=== PATIENT | male | born 1945 | race Caucasian/White ===

== ENCOUNTER 2023-04-05 14:21 | Outpatient (OUT) | payer MEDICARE, OTHER, SELFPAY ==
[2023-04-05 14:57] LABS: Basophils Percent Auto 0.3 % (0.2-2.0); Eosinophils Absolute Auto 0.1 10^3/uL (0.0-0.7); Hematocrit 34.8 % (42.0-54.0); Hemoglobin 11.6 g/dL (14.0-18.0); Immature Granulocytes Abs Auto 0.05 10^3/uL (0.00-0.03); Immature Granulocytes Pct Auto 0.8 % (0.0-0.5); Lymphocytes Absolute Auto 1.6 10^3/uL (1.2-3.8); Lymphocytes Percent Auto 24.2 % (20.5-60.0); Mean Corpuscular HGB Conc 33.3 g/dL (29.9-35.2); Mean Corpuscular Volume 95.9 fL (80.0-94.0); Mean Platelet Volume 9.8 fL (9.5-13.5); Monocytes Absolute Auto 0.5 10^3/uL (0.3-0.8); Monocytes Percent Auto 7.5 % (1.7-12.0); Neutrophils Absolute Auto 4.3 10^3/uL (1.4-6.5); Neutrophils Percent Auto 65.2 % (43.0-75.0); Platelet Count 234 10^3/uL (150-450); Red Blood Count 3.63 10^6/uL (4.70-6.10); Red Cell Distribution Width 12.4 % (11.0-15.0); White Blood Count 6.5 10^3/uL (4.0-11.0)
[2023-04-05 15:18] LABS: Alanine Aminotransferase 35 U/L (16-63); Albumin Level 3.4 g/dL (3.4-5.0); Alkaline Phosphatase 68 U/L (46-116); Amylase 37 U/L (25-115); Anion Gap 8.8; Aspartate Amino Transferase 24 U/L (15-37); BUN Creatinine Ratio 18.8; Bilirubin Total 0.7 mg/dL (0.2-1.0); Calcium 9.6 mg/dL (8.5-10.1); Carbon Dioxide 31.9 mmol/L (21.0-32.0); Chloride 101 mmol/L (98-107); Estimated GFR (African America >60 (>=60); Estimated GFR (Non-African Ame >60 (>=60); Globulin 3.4 g/dL; Glucose 116 mg/dL (74-106); Potassium 4.7 mmol/L (3.5-5.1); Sodium 137 mmol/L (136-145); Total Protein 6.8 g/dL (6.4-8.2)
== END 2023-04-05 14:22 | disposition home or self-care (01) ==
LOC: LAB 14:25
PROVIDERS: PCP Internal Medicine; Visit Provider Internal Medicine
DX: R10.11 Right upper quadrant pain (principal); R11.0 Nausea; E11.65 Type 2 diabetes mellitus with hyperglycemia
CPT/HCPCS: 36415; 80053; 82150; 83690; 85025

== ENCOUNTER 2023-04-12 07:55 | Outpatient (OUT) | payer MEDICARE, OTHER, SELFPAY ==
--- NOTE | 2023-04-12 07:58 | US_ITS ---
The [address] [address] Patient Name: PABLO ONEIL MRN: [id number] date: 1945 Sex: M Assigned Patient Location: US Current Patient Location: LAB Accession/Order Number: [id number] Exam Date: 04/12/2023 08:00 Report Date: 04/12/2023 08:35 At the request of: LISSA FALL Procedure: US right upper quadrant EXAM: US right upper quadrant HISTORY: . Right Upper Quadrant Abdominal Pain R10.11 . COMPARISON: None. TECHNIQUE: Grayscale and color imaging was performed FINDINGS: The head and body of the pancreas appears normal. Within the tail region there are 2 smoothly marginated avascular hypoechoic lesions measuring 1.7 x 1.3 and 1.6 x 1.1 cm. The liver is normal in size. No masses are noted. Color-flow is noted in the portal and hepatic veins. Scanning of the gallbladder demonstrates small gallstones within the gallbladder. No gallbladder wall thickening is noted. Patient had no pain upon scanning over the gallbladder. Common bile duct was normal measuring 3 mm. Right kidney measures 9.8 x 6.2 x 6.5 cm. Color-flow is noted. No solid renal cortical masses or hydronephrosis is noted. No fluid is noted in the right upper quadrant. US/US right upper quadrant IMPRESSION: 1. Small gallstones. No gallbladder wall thickening. Patient had no pain upon scanning over the gallbladder. 2. The head and body of pancreas appears normal. Within the tail there are 2 smoothly marginated hypoechoic lesions. These could represent cysts or a hypoechoic solid areas. MRI of the pancreas is suggested for further evaluation. 3. The remainder of the right upper quadrant was unremarkable. Electronically authenticated by: FEDE SHIN Date: 04/12/2023 08:35
== END 2023-04-12 07:56 | disposition home or self-care (01) ==
LOC: US 07:55
PROVIDERS: PCP Internal Medicine; Visit Provider Internal Medicine
DX: R10.11 Right upper quadrant pain (principal)
CPT/HCPCS: 76705

== ENCOUNTER 2023-04-12 08:24 | Outpatient (OUT) | payer MEDICARE, OTHER, SELFPAY ==
[2023-04-12 10:08] LABS: Prostate Specific Antigen Dx 0.14 ng/mL (<=4.00)
== END 2023-04-12 08:25 | disposition home or self-care (01) ==
LOC: LAB 08:26
PROVIDERS: PCP Internal Medicine; Visit Provider Urology
DX: R97.21 Rising PSA following treatment for malignant neoplasm of prostate (principal); C61 Malignant neoplasm of prostate; R31.29 Other microscopic hematuria
CPT/HCPCS: 36415; 84153

== ENCOUNTER 2023-04-20 14:16 | Outpatient (OUT) | payer MEDICARE, OTHER, SELFPAY ==
--- NOTE | 2023-04-20 14:19 | MR_ITS ---
[place] [id number] Patient Name: PABLO ONEIL MRN: [id number] date: 1945 Sex: M Assigned Patient Location: [facility] Current Patient Location: Accession/Order Number: [id number] Exam Date: 04/20/2023 15:00 Report Date: 04/24/2023 07:27 At the request of: LISSA FALL Procedure: MR abdomen wo con EXAMINATION: MR abdomen wo con, 04/20/2023 3:00 PM EDT HISTORY: Pancreatic Mass K86.89 COMPARISON: 11/05/2021 TECHNIQUE: Multisequence multiplanar MRI of the abdomen was performed without the use of IV contrast. MRCP sequences were additionally obtained. FINDINGS: LOWER THORAX: Unremarkable. LIVER: Normal in size and configuration. Mild steatosis. No suspicious masses within limitations of noncontrast technique. BILE DUCTS: No intrahepatic or extrahepatic bile duct dilation. GALLBLADDER: Question changes of mild focal adenomyomatosis along the gallbladder fundus. Gallbladder otherwise appears unremarkable. PANCREAS: Parenchymal atrophy. There are several scattered cystic pancreatic lesions, the largest of which just dorsal to the body measures approximately 4.0 cm in greatest diameter (image 1 series 9001), grossly unchanged since CT 11/05/2021 noting differences in modality. No abnormal dilatation of the main pancreatic duct. SPLEEN: Normal ADRENAL GLANDS: Normal. KIDNEYS/URETERS: No hydroureteronephrosis. No suspicious renal mass. VISUALIZED BOWEL: Diminutive hiatal hernia. Nondilated. Colonic diverticulosis, without visualized findings of acute diverticulitis PERITONEUM/RETROPERITONEUM: No ascites or fluid collection. LYMPH NODES: No abdominal lymphadenopathy. VESSELS: No abdominal aortic aneurysm. ABDOMINAL WALL: Partially visualized changes from median sternotomy. BONES: No suspicious osseous lesions are seen. MR/MR abdomen wo con IMPRESSION: 1. 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 No abnormal pancreatic ductal dilatation. Consider EUS if not already performed, and follow-up MRI in 6 months. 2. Mild hepatic steatosis. Electronically authenticated by: PEDRO BEYER Date: 04/24/2023 07:27
--- NOTE | 2023-04-20 14:20 | XR_ITS ---
The [address] [address] Patient Name: PABLO ONEIL MRN: [id number] date: 1945 Sex: M Assigned Patient Location: RAD Current Patient Location: RAD Accession/Order Number: [id number] Exam Date: 04/20/2023 14:25 Report Date: 04/20/2023 15:09 At the request of: LISSA FALL Procedure: XR foreign body eye EXAM: XR foreign body eye HISTORY: Foreign Body Eye COMPARISON: None. TECHNIQUE: 2 views FINDINGS: IMPRESSION: No visualized radiodense foreign body. No fracture, dislocation, subluxation. 24 x 22.5 x 8.5 mm soft tissue mass within the right frontal sinus. The remainder of the paranasal sinuses appear pneumatized. Electronically authenticated by: FEDE ZAMORA Date: 04/20/2023 15:09
== END 2023-04-20 14:17 | disposition home or self-care (01) ==
LOC: RAD 14:16
PROVIDERS: PCP Internal Medicine; Visit Provider Internal Medicine
DX: K86.89 Other specified diseases of pancreas (principal); K76.0 Fatty (change of) liver, not elsewhere classified
CPT/HCPCS: 70030; 74181

== ENCOUNTER 2023-04-21 10:33 | Outpatient (OUT) | payer MEDICARE, OTHER, SELFPAY ==
--- NOTE | 2023-04-21 10:41 | XR_ITS ---
The [address] [address] Patient Name: PABLO ONEIL MRN: [id number] date: 1945 Sex: M Assigned Patient Location: RAD Current Patient Location: RAD Accession/Order Number: [id number] Exam Date: 04/21/2023 10:47 Report Date: 04/21/2023 11:09 At the request of: ANTHONY SCRUGGS Procedure: XR abdomen 1V EXAM: XR abdomen 1V HISTORY: Microscopic Hematuria R31.29 COMPARISON: None. TECHNIQUE: AP view of the abdomen. FINDINGS: Nonobstructive bowel gas pattern is noted. There is no suspicious calcification. The osseous structures are intact. XR/XR abdomen 1V IMPRESSION: Nonobstructive bowel gas pattern. No suspicious renal calcification. Electronically authenticated by: AIXA RUIZ Date: 04/21/2023 11:09
== END 2023-04-21 10:34 | disposition home or self-care (01) ==
LOC: RAD 10:33
PROVIDERS: PCP Internal Medicine; Visit Provider Urology
DX: R31.29 Other microscopic hematuria (principal)
CPT/HCPCS: 74018

== ENCOUNTER 2023-06-02 09:23 | Outpatient (OUT) | payer MEDICARE, OTHER, SELFPAY ==
--- NOTE | 2023-06-02 09:26 | CT_ITS ---
The [address] [address] Patient Name: PABLO ONEIL MRN: [id number] date: 1945 Sex: M Assigned Patient Location: CT Current Patient Location: CT Accession/Order Number: [id number] Exam Date: 06/02/2023 09:32 Report Date: 06/02/2023 16:51 At the request of: LISSA FALL Procedure: CT sinus wo con EXAM: CT sinus wo con HISTORY: Mass Of Sinus J34.89 COMPARISON: XR sinus 04/20/2023. TECHNIQUE: Contiguous axial CT images of the sinuses obtained without contrast. Coronal and sagittal reconstructions performed. Dose reduction techniques were achieved by using automated exposure control and/or adjustment of mA and/or kV according to patient size and/or use of iterative reconstruction technique. FINDINGS: There is a 2.2 x 2 cm lobulated rounded hyperdense mass within the frontal sinus at the midline There is a 1 cm mucous retention cyst in left maxillary sinus. Otherwise, the paranasal sinuses are clear and well-aerated. The osteomeatal complexes, bilateral frontal and sphenoethmoidal recesses are patent. There is severe leftward bony nasal septal deviation with a 5 mm bony spur. There are no acute fracture or destructive lesion of bony structures. The mastoid air cells are well aerated. There is no proptosis. The extraocular muscles are intact. There are cerumen within the bilateral external auditory canals. CT/CT sinus wo con IMPRESSION: A 2.2 x 2 cm lobulated rounded hyperdense mass within the frontal sinus at the midline, consistent with frontal sinus osteoma. No evidence of acute sinusitis. Small mucous retention cyst in left maxillary sinus. Otherwise, the paranasal sinuses are clear and well-aerated. Severe leftward bony nasal septal deviation with a 5 mm bony spur. Electronically authenticated by: DIA CANA[place] Date: 06/02/2023 16:51
== END 2023-06-02 09:24 | disposition home or self-care (01) ==
LOC: CT 09:23
PROVIDERS: PCP Internal Medicine; Visit Provider Internal Medicine
DX: J34.89 Other specified disorders of nose and nasal sinuses (principal)
CPT/HCPCS: 70486

== ENCOUNTER 2023-06-27 10:13 | Outpatient (OUT) | payer MEDICARE, OTHER, SELFPAY ==
--- NOTE | 2023-06-27 11:02 | CA_ITS ---
Patient Name: PABLO ONEIL MR#: [id number] : 1945 Exam Date: 06/27/2023 Ordering Doctor: DR ARIAN MULLIGAN M.D. ECHOCARDIOGRAM REPORT PROCEDURE: CA ECHO DOPPLER COMPLETE INDICATIONS: Nonrheumatic aortic valve stenosis COMPARISON: None. DESCRIPTION: COMPLETE ECHOCARDIOGRAM Real-time transthoracic echocardiography with 2D, M-mode, spectral and color flow Doppler performed. QUALITY: Technical quality was good. LEFT VENTRICLE: Normal chamber size. Mild concentric left ventricular hypertrophy. LV EF: Ventricular systolic function is normal; visually estimated ejection fraction is 55 to 60%. No obvious wall motion abnormalities. DIASTOLIC: Grade II, moderate diastolic dysfunction. ATRIAL SEPTUM: Inadequately seen. LEFT ATRIUM: Mild dilatation. RIGHT ATRIUM: Moderate dilatation. RIGHT VENTRICLE: Moderate dilatation. Normal right ventricular systolic function. TRICUSPID VALVE: Normal mobility and thickness. Moderate to severe regurgitation. Mild pulmonary hypertension. RVSP 40mmHg MITRAL VALVE: Mildly thickened with normal mobility. No evidence of mitral valve stenosis. Mild mitral annular calcification. Mild mitral regurgitation. AORTIC VALVE: Normal trileaflet appearance. Moderately calcified aortic valve. Doppler velocity suggests mild to moderate aortic valve stenosis. DVI 0.3, ROGER 1.3cm2, Vmax 2.8m/s, mean gradient 18mmHg. Mild aortic regurgitation. AORTIC ROOT: Normal diameter and appearance. PULMONIC VALVE: Normal thickness and mobility. No stenosis. Trivial regurgitation. PERICARDIUM: No evidence of pericardial effusion. IVC: Collapses with inspirations. Normal size CONCLUSION: 1. Global left ventricular systolic function is normal; visually estimated ejection fraction is 55 to 60% 2. Mildly increased left ventricular wall thickness 3. Grade 2, moderate diastolic dysfunction 4. The right ventricle is moderately dilated with normal systolic function 5. Biatrial enlargement 6. Moderate to severe tricuspid regurgitation 7. Mildly elevated right ventricular systolic pressure; RVSP 40 mmHg 8. Mild mitral regurgitation 9. Mild to moderate aortic valve stenosis; mild aortic valve regurgitation Adult Echocardiography Procedure Report Left Ventricle LVEDD (3.7 - 5.6 cm): 4.72 cm LVESD (2.2 - 4.0 cm): 3.31 cm LVIVS thickness (0.6 - 1.2 cm): 1.16 cm LVPW thickness (0.5 - 1.0 cm): 1.32 cm e': 0.09 m/s E - e': 9.33 LVOT Max Gradient: 2.90 mm[Hg] LVOT Area (cm2): 0.85 m/s Peak Velocity (LVOT): 0.85 m/s Mean Velocity (LVOT): 0.56 m/s LVOT Diameter 2.36 cm Left Atrium LA Volume Index (2D A2C): 39.67 ml/m2 Left Atrium Systolic Dimension: 4.44 cm Mitral Valve MV E to A Ratio: 0.85 Mitral Valve A-Wave Peak Velocity: 1.01 m/s Mitral Valve E-Wave Peak Velocity: 0.86 m/s Right Ventricle RV Internal Diastolic Dimension: 4.66 cm Aorta AO Root Diam: 3.35 cm Ascending Ao Diam: 3.25 cm Aortic Valve AoV Area (Peak Kael): 1.35 cm2, 1.34 cm2, 1.30 cm2, 1.30 cm2 AoV Area (VTI): 1.44 cm2, 1.37 cm2 Deceleration [place]: 1.10 m/s2, 1.55 m/s2 Pressure Half-Time: 741.69 ms, 667.20 ms Peak Velocity(Antegrade Flow): 2.78 m/s, 2.82 m/s, 2.68 m/s, 2.87 m/s Peak Gradient(Antegrade Flow): 30.94 mm[Hg], 32.93 mm[Hg], 31.87 mm[Hg], 28.67 mm[Hg] Mean Velocity(Antegrade Flow): 2.00 m/s, 1.90 m/s, 1.99 m/s Mean Gradient(Antegrade Flow): 17.98 mm[Hg], 16.62 mm[Hg], 17.12 mm[Hg] Velocity Time Integral: 78.29 cm, 74.87 cm, 71.12 cm Tricuspid Valve Peak Velocity (Regurgitant Flow): 2.75 m/s, 2.95 m/s, 3.06 m/s Pulmonic Valve Mean Gradient: 1.79 mm[Hg] Mean Velocity: 0.59 m/s Peak Velocity: 1.00 m/s, 1.01 m/s Peak Gradient: 4.08 mm[Hg], 3.97 mm[Hg] Right Atrium Right Atrium Systolic Pressure: 88.72 ml, 88.72 ml Dictated by: Arian Mulligan M.D. on 06/27/2023 at 17:00 Approved by: Arian Mulligan M.D. on 06/27/2023 at 17:05
== END 2023-06-27 10:14 | disposition home or self-care (01) ==
LOC: CARD 10:13
PROVIDERS: PCP Internal Medicine; Visit Provider Internal Medicine Interventional Cardiology
DX: I35.0 Nonrheumatic aortic (valve) stenosis (principal)
CPT/HCPCS: 93306

== ENCOUNTER 2023-09-14 09:23 | Outpatient (OUT) | payer MEDICARE, OTHER, SELFPAY ==
--- NOTE | 2023-09-14 09:25 | US_ITS ---
The [place] [id number] Patient Name: PABLO ONEIL MRN: [id number] date: 1945 Sex: M Assigned Patient Location: US Current Patient Location: Accession/Order Number: [id number] Exam Date: 09/14/2023 09:35 Report Date: 09/14/2023 10:12 At the request of: LISSA FALL Procedure: US extremity nonvascular LT EXAMINATION: US extremity nonvascular LT HISTORY: Mass Of Skin Of Left Shoulder R22.32 COMPARISON: No relevant comparison available. FINDINGS: Ultrasound in the area the patient's palpable abnormality, left posterior shoulder demonstrates normal skin and subcutaneous fat and muscle. No focal ultrasound abnormality US/US extremity nonvascular LT IMPRESSION: No ultrasound abnormality corresponding to the patient's palpable mass Electronically authenticated by: FEDE AYOUB Date: 09/14/2023 10:12
--- OUTSIDE RECORDS SUMMARY | 2023-09-14 09:44 | XMS_ITS | CCD ---
Author Name Unknown Address [address] [place] [address] Organization [facility] Care Team Providers Care Rectangular Tank Cooper Name Role Phone Jamar Fall DO Primary Care Provider Dheeraj JAMES, Marco A R Unavailable [facility] SURTASS ANALYST.ALEXA, Christo Unavailable Lauren WELSH, Clementine Unavailable [phone] JAMAR FALL Primary Care Physician [phone] Jamar Fall DO Primary Care Provider Dheeraj JAMES, Marco A R Unavailable [phone] [facility] SURTASS ANALYST.RAILWAY TRACK PLANT OPERATOR, Christo Unavailable Lauren WELSH, Clementine Unavailable Jamar Fall DO Primary Care Provider Dheeraj JAMES, Marco A R Unavailable [facility] SURTASS ANALYST.ALEXA, Christo Unavailable Lauren WELSH, Clementine Unavailable [phone] Jamar Fall Unavailable JUAN DAVID, DR ALCARAZ Admitting Unavailable JUAN DAVID, DR ALCARAZ Attending Unavailable JUAN DAVID, DR ALCARAZ Primary Care Unavailable JUAN DAVID, DR ALCARAZ Consulting Unavailable Cynthia Torres Consulting Unavailable KAEL ., DR CRUZ Admitting Unavailable KAEL ., DR CRUZ Attending Unavailable JUAN DAVID, DR ALCARAZ Primary Care Unavailable KAEL ., DR CRUZ Consulting Unavailable DHEERAJ, DR SHARIF Admitting Unavailable DHEERAJ, DR SHARIF Attending Unavailable JUAN DAVID, DR ALCARAZ Primary Care Unavailable DHEERAJ, DR SHARIF Consulting Unavailable FEDE DE JESUS Consulting Unavailable UMANALUIZ Krueger Consulting Unavailable TAMEKA, LORA Admitting Unavailable TAMEKA, LORA Attending Unavailable JUAN DAVID, DR ALCARAZ Primary Care Unavailable TAMEKALORA Barnett Consulting Unavailable SCRUGGS ., DR CRUZ Admitting Unavailable SCRUGGS ., DR CRUZ Attending Unavailable BALL, DR ALCARAZ Primary Care Unavailable SCRUGGS ., DR CRUZ Consulting Unavailable REQUEST, NONE LISTED Admitting Unavaila ble REQUEST, NONE LISTED Attending Unavaila ble BALL, DR ALCARAZ Primary Care Unavailable REQUEST, NONE LISTED Consulting Unavaila ble REQUEST, NONE LISTED Admitting Unavaila ble REQUEST, NONE LISTED Attending Unavaila ble BALL, DR ALCARAZ Primary Care Unavailable REQUEST, NONE LISTED Consulting Unavaila ble REQUEST, NONE LISTED Admitting Unavaila ble REQUEST, NONE LISTED Attending Unavaila ble BALL, DR ALCARAZ Primary Care Unavailable REQUEST, NONE LISTED Consulting Unavaila ble SCRUGGS, Anthony R Attending Unavailable SCRUGGS, Anthony Lee Attending Unavailable SCRUGGS, Anthony R Attending Unavailable SCRUGGS, Anthony R Attending Unavailable Lauren RN, Clementine Unavailable BRIDGER MULLIGAN Attending Unavailable JAMAR FALL E Primary Care Unavailable MARCO A ESQUEDA Referring Unavailable CHRISTO HOWARD Attending Unavailable JUAN DAVID, JAMAR E Primary Care Unavailable MARCO A ESQUEDA Referring Unavailable JUAN DAVID, JAMAR E Primary Care Unavailable MARCO A ESQUEDA Referring Unavailable JUAN DAVID, JAMAR Jessica Primary Care Unavailable MARCO A ESQUEDA R Referring Unavailable CHRISTO HOWARD Attending Unavailable JUAN DAVID JAMAR Jessica Primary Care Unavailable MARCO A ESQUEDA R Referring Unavailable MARCO A ESQUEDA R Attending Unavailable JUAN DAVID, JAMAR E Primary Care Unavailable MARCO A ESQUEDA R Referring Unavailable BALL, JAMAR E Primary Care Unavailable MARCO A ESQUEDA R Referring Unavailable JUAN DAVID, JAMAR E Primary Care Unavailable MARCO A ESQUEDA R Referring Unavailable JUAN DAVID, JAMAR E Primary Care Unavailable MARCO A ESQUEDA R Referring Unavailable JUAN DAVID, JAMAR E Primary Care Unavailable JUAN DAVID, JAMAR E Primary Care Unavailable MARCO A ESQUEDA R Referring Unavailable MARCO A ESQUEDA R Attending Unavailable BALL, JAMAR E Primary Care Unavailable MARCO A ESQUEDA R Referring Unavailable BALL, JAMAR E Primary Care Unavailable MARCO A ESQUEDA R Referring Unavailable JUAN DAVID, JAMAR E Primary Care Unavailable MARCO A ESQUEDA R Attending Unavailable MARCO A ESQUEDA R Referring Unavailable JUAN DAVID, JAMAR E Primary Care Unavailable MARCO A ESQUEDA Referring Unavailable Ball Jamar JAMES Primary Care Provider LONG BOO Attending Unavailable MARCO A ESQUEDA Referring Unavailable EMELINA LOUIS Attending Unavailable JAMAR FALL Referring Unavailable Allergies Allergy Classification Reported Allergen(s) Allergy Type Date of Onset Reaction(s) Facility (18 sources) Penicillins; Translations: [PENICILLINS] Drug Allergy 1 Unknown [facility] (20 sources) Penicillin G; Translations: [penicillin G benzathine] Drug Allergy 1 Unknown (qualifier value) [facility] (12 sources) Penicillins Drug Allergy 5 Unknown [facility] (13 sources) Simvastatin; Translations: [SIMVASTATIN] Drug Allergy 2 Unknown [facility] (1 source) Penicillins Drug allergy (disorder) 5 [facility] (1 source) Penicillin Drug Allergy Unknown [facility]-Tr[facility] Other (1 source) Allergies Reconciled Propensity to adverse reactions Unknown N-Trig Other (1 source) patient allergy list reviewed by nurse or physicia Propensity to adverse reactions 9 Comment:Done N-Trig Other (3 sources) Simvastatin Propensity to adverse reactions 2 [facility] Medications Current Medications Medication Drug Class(es) Dates Sig (Normalized) Sig (Original) Aspir-81 81 MG (20 sources) take 1 tablet by mouth once daily Aspir-81 81 MG 1 tablet Orally Once a day Active aspirin 81 mg oral tablet (20 sources) Platelet Aggregation Inhibitor, Nonsteroidal Anti-inflammatory Drug Start: 02-04-2019 take 1 mg by mouth once daily aspirin 81 mg oral tablet mg tab(s), Oral, Daily, Refills(s) 0 Start Date: 02/04/19 Status: Ordered take 1 tablet by mouth in the mo rning aspirin 81 MG EC tablet Take 81 mg by mouth in the morning. 0 Active Comment on above: Take 81 mg by mouth once daily. atorvastatin 40 mg oral tablet (20 sources) HMG-CoA Reductase Inhibitor Start: 04-17-2023 atorvastatin 40 mg Tab Refills(s) 0 Start Date: 04/17/23 Status: Ordered Start: 02-04-2019 take 1 tablet by anupama th once daily atorvastatin 20 mg Tab 20 mg = 1 tab(s), Oral, Daily, Refills(s) 0 Start Date: 02/04/19 Status: Ordered Comment on above: Take 20 mg by mouth once daily. Take 40 mg by mouth once daily. Contour Next - (20 sources) Contour Next - u se one test strip to check home blood sugar transcutaneous daily for 30 days Active Contour Next - u se one test strip to check home blood sugar daily Active enzalutamide 80 mg oral tablet (20 sources) Androgen Receptor Inhibitor Start: 05-13-2022 take 1 mg by mouth once daily Xtandi 80 mg oral tablet mg tab(s), Oral, Daily, Refills(s) 0 Start Date: 05/13/22 Status: Ordered Start: 10-28-2021 End: 04-27-2023 take 2 tablets by mouth once daily enzalutamide (XTANDI) 80 mg tablet Take 2 tablets (160 mg) by mouth once daily. 60 tablet 3 10/28/2021 04/27/2023 Discontinued Comment on above: Take 2 tablets (160 mg) by mouth once daily. fluorouracil 50 mg/ml topical cream (2 sources) Nucleoside Metabolic Inhibitor Start: 08-28-2023 fluorouracil (Efudex) 5 % cream Indications: Actinic keratosis Apply to directed areas on the face, ears and back of hands twice a day x 14 days. Dispense 30 day supply but only use for 14 days. 40 g 0 08/28/2023 Active Start: 08-28-2023 fluorouracil ( Efudex) 5 % cream Indications: Actinic keratosis Apply to directed areas on the face, ears and back of hands twice a day x 14 days. Dispense 30 day supply but only use for 14 days. 40 g 0 08/28/2023 Active hydroCHLOROthiazide 12.5 mg / lisinopril 20 mg oral tablet (20 sources) Thiazide Diuretic, Angiotensin Converting Enzyme Inhibitor Start: 02-04-2019 take 1 tablet by mouth once daily hydrochlorothiazide-lisinopril 12.5 mg-20 mg Tab 1 tab(s), Oral, Daily, Refill(s) 0 Start Date: 02/04/19 Status: Ordered take 1 tablet by anupama th in the morning lisinopril-hydroCHLOROthiazide 20-12.5 M G tablet Take 1 tablet by mouth in the morning. 0 Active take 1 tablet by anupama th once daily Lisinopril-hydroCHLOROthiazide 20-12.5 M G TAKE 1 TABLET BY MOUTH EVERY DAY Active Comment on above: Take 1 tablet by anupama th once daily. ipratropium bromide 0.042 mg/actuat metered dose nasal spray (3 sources) Anticholinergic Start: 06-05-20 End: 06-04-20 24 take 2 spray(s) nasal route in the morning, then take 2 spray(s) nasal route in the evening, then take 2 spray(s) nasal route at bedtime ipratropium (Atrovent) 0.06 % nasal spray Indications: Vasomotor rhinitis Administer 2 sprays into each nostril in the morning and 2 sprays in the evening and 2 sprays before bedtime. 45 mL 3 06/05/2023 06/04/2024 Active traMADol hydrochloride 50 mg oral tablet (2 sources) Opioid Agonist Start: 07-21-19 traMADol HCl 50 MG 1 Orally every 8 hours as needed for 7 days Jul, Active Vitamin D3 (3 sources) Start: 06-22-20 Vitamin D3 Start Date: 06/22/20 Status: Ordered Completed/Discontinued Medications Medication Drug Class(es) Dates Sig (Normalized) Sig (Original) acetaminophen 325 mg / HYDROcodone bitartrate 5 mg oral tablet (2 sources) Opioid Agonist HYDROcodone-acet a minophen (NORCO) 5-325 mg per tablet hydrocodone 5 mg-acetaminophen 325 mg tablet 0 Active Comment on above: hydrocodone 5 mg-vibha taminophen 325 mg tablet amiodarone hydrochloride 200 mg oral tablet (2 sources) Antiarrhythmic amiodarone (PACERONE) 200 mg tablet amiodarone 200 mg tablet 0 Active Comment on above: amiodarone 200 mg ta blet calcium carbonate/vitamin D2 (CALCIUM + VITAMIN D ORAL) (12 sources) End: 05-12-2022 take 1 tablet by mouth twice daily calcium carbonate/vitamin D2 (CALCIUM + VITAMIN D ORAL) Take 1 tablet by mouth twice daily. 0 05/12/2022 Discontinued (Discontinued by Patient) take 1 tablet by mouth twice benjamín ly calcium carbonate/vitamin D2 (CALCIUM + VITAMIN D ORAL) Take 1 tablet by mouth twice daily. 0 Active Comment on above: Take 1 tablet by anupama th twice daily. calcium citrate 950 mg / cholecalciferol 250 unt oral tablet (9 sources) Vitamin D Start: 04-28-20 take 2 tablets by mouth once daily Calcium Citrate-Vitamin D3 200 mg-6.25 mcg (250 unit) tab Take 2 tablets by mouth once daily. 0 04/28/2022 Active Comment on above: Take 2 tablets by [facility] once daily. clopidogrel 75 mg oral tablet (2 sources) P2Y12 Platelet Inhibitor clopidogrel (PLAVIX) 75 mg tablet clopidogrel 75 mg tablet 0 Active Comment on above: clopidogrel 75 mg ta blet docusate sodium 100 mg oral capsule (2 sources) docusate sodium (COLACE) 100 mg capsule q 24 HR. 0 Active Comment on above: q 24 HR. enteric contrast (will be provided with radiology test) (3 sources) Start: 10-29-19 End: 10-30-19 enteric contrast (will be provided with radiology test) For CT CHESTABD/PEL W IVCON Routine order Administer, As Directed One Time Only, via Oral, Rectal, both Oral and Rectal, Enteric Tube, Stoma or Indwelling Catheter, Enteric Contrast as designated per enteric contrast guidelines 1 Each 0 10/28/2021 10/29/2021 Start: 10-28-2021 End: 10-29-2021 enteric contrast (will be pr ovided with radiology test) For CT CHESTABD/PEL W IVCON Routine order Administer, As Directed One Time Only, via Oral, Rectal, both Oral and Rectal, Enteric Tube, Stoma or Indwelling Catheter, Enteric Contrast as designated per enteric contrast guidelines 1 Each 0 10/28/2021 10/29/2021 Active Comment on above: For CT CHESTABD/PEL W IVCON Routine order Administer, As Directed One Time Only, via Oral, Rectal, both Oral and Rectal, Enteric Tube, Stoma or Indwelling Catheter, Enteric Contrast as designated per enteric contrast guidelines ferrous sulfate 325 mg oral tablet (2 sources) take 1 tablet by mouth three times daily at mealtime ferrous sulfate 325 mg (65 mg iron) tablet ferrous sulfate 325 mg (65 mg iron) tablet Take 1 tablet 3 times a day by oral route with meals for 30 days. 0 Active Comment on above: ferrous sulfate 325 mg (65 mg iron) tablet Take 1 tablet 3 times a day by oral route with meals for 30 days. finasteride 5 mg oral tablet (2 sources) 5-alpha Reductase Inhibitor finasteride (PROSCAR) 5 mg tablet q 24 HR. 0 Active Comment on above: q 24 HR. furosemide 40 mg oral tablet (2 sources) Loop Diuretic furosemide (LASI X) 40 mg tablet q 24 HR. 0 Active Comment on above: q 24 HR. glimepiride (20 sources) Sulfonylurea Start: 10-16-19 take 0.5 tablet by mouth once daily at breakfast glimepiride (AMARYL) 1 mg tablet TAKE 1/2 TABLET BY MOUTH DAILY 30 MINUTES PRIOR TO BREAKFAST 0 10/15/2021 Active Start: 10-15-2021 take 0.5 mg by mouth once kristi y GLIMEPIRIDE ORAL Take 0.5 mg by mouth once daily. 0 10/15/2021 Active Start: 05-14-2021 glimepiride Or al, Daily, Refills(s) 0 Start Date: 05/14/21 Status: Ordered Comment on above: TAKE 1/2 TABLET BY M OUTH DAILY 30 MINUTES PRIOR TO BREAKFAST Take 0.5 mg by mouth once daily. ibuprofen 800 mg oral tablet (2 sources) Nonsteroidal Anti-inflammatory Drug ibuprofen (MOTRIN ) 800 mg tablet ibuprofen 800 mg tablet 0 Active Comment on above: ibuprofen 800 mg tab let iv contrast (will be provided with radiology test) (3 sources) Start: 10-28-2021 End: 10-29-2021 iv contrast (will be provided with radiology test) CT Chest ABD/PEL-Inject, intravenously, once for 1 dose.No IV access, insert saline lock prior to the beginning of sedation, infusion, injection of imaging exam. Discontinue saline lock post exam. If Pt. has a central line or IVAD, may access for administration according to line specific nursing protocol. Once exam is complete flush line and de-access according to line specific nursing protocol in the CT contrast administration guidelines link. 1 Each 0 10/28/2021 10/29/2021 Start: 10-28-2021 End: 10-29-2021 iv contrast (will be provide d with radiology test) CT Chest ABD/PEL-Inject, intravenously, once for 1 dose.No IV access, insert saline lock prior to the beginning of sedation, infusion, injection of imaging exam. Discontinue saline lock post exam. If Pt. has a central line or IVAD, may access for administration according to line specific nursing protocol. Once exam is complete flush line and de-access according to line specific nursing protocol in the CT contrast administration guidelines link. 1 Each 0 10/28/2021 10/29/2021 Active Comment on above: CT Chest ABD/PEL-Inj ect, intravenously, once for 1 dose.No IV access, insert saline lock prior to the beginning of sedation, infusion, injection of imaging exam. Discontinue saline lock post exam. If Pt. has a central line or IVAD, may access for administration according to line specific nursing protocol. Once exam is complete flush line and de-access according to line specific nursing protocol in the CT contrast administration guidelines link. Lidocaine (14 sources) Antiarrhythmic, Amide Local Anesthetic Start: 03-15-20 23 Lidocaine Feb, 20 mg metFORMIN hydrochloride 1000 mg oral tablet (20 sources) Biguanide Start: 08-17-19 22 take 2 tablets by mouth once daily at mealtime metFORMIN (GLUCOPHAGE) 500 mg tablet TAKE 2 TABLETS BY MOUTH ONCE A DAY WITH FOOD 0 08/17/2021 Active Start: 08-17-2021 take 1 tablet by anupama th once daily metFORMIN (GLUCOPHAGE) 1,000 mg tablet Take 1,000 mg by mouth once daily. 0 08/17/2021 Active Start: 05-14-2021 take 1 mg by mouth twice daily metformin 1000 mg oral tablet mg tab(s), Oral, BID, Refills(s) 0 Start Date: 05/14/21 Status: Ordered take 1 tablet by anupama th at mealtime, then take 1 tablet by mouth every twenty-four hours metFORMIN, OSM, (Fortamet) 500 MG 24 hr tablet Take 500 mg by mouth in the evening. Take with meals. Do not crush, chew, or split. 0 Active metFORMIN HCl 50 0 MG 1 tablet with a meal Active Comment on above: TAKE 2 TABLETS BY MO UT ONCE A DAY WITH FOOD Take 1,000 mg by anupama th once daily. 24 hr metoprolol succinate 25 mg extended release oral tablet (20 sources) beta-Adrenergic Jose Start: 02-04-2019 take 1 tablet by mouth every twenty-four hours metoprolol succinate ER (TOPROL XL) 25 mg 24 hr tablet Take by mouth. 0 02/04/2019 Active Start: 02-04-2019 take 1 tablet by anupama th twice daily metoprolol 25 mg ER Tab 25 mg = 1 tab(s), Oral, BID, Refills(s) 0 Start Date: 02/04/19 Status: Ordered take 1 tablet by anupama th every twelve hours metoprolol tartrate (Lopressor) 25 MG tablet Take 25 mg by mouth every 12 (twelve) hours. 0 Active End: 05-12-2022 take 1 tablet by mouth twice daily Metoprolol Tartrate 25 MG TAKE 1 TABLET BY MOUTH TWICE A DAY Active Comment on above: Take 25 mg by mouth. Take 25 mg by mouth twice daily. Take by mouth. Multivitamins-Minerals -Lutein (MULTIVITAMIN 50 PLUS) tab (20 sources) Multivitamins-Mi ne rals-Lutein (MULTIVITAMIN 50 PLUS) tab Take 1 tablet by mouth once daily. 0 Active Comment on above: Take 1 tablet by anupama th once daily. oxyCODONE hydrochloride 5 mg oral tablet (2 sources) Opioid Agonist oxyCODONE IR (ROXICODONE) 5 mg immediate release tablet q 4 HR. 0 Active Comment on above: q 4 HR. predniSONE 5 mg oral tablet (2 sources) Start: 08-23-19 take 1 tablet by mouth once daily predniSONE (DELTASONE) 5 mg tablet Take 5 mg by mouth once daily. 0 08/23/2021 Active Comment on above: Take 5 mg by mouth o nce daily. tamsulosin hydrochloride 0.4 mg oral capsule (2 sources) alpha-Adrenergic Jose tamsulosin (FLOMAX) 0.4 mg q 24 HR. 0 Active Comment on above: q 24 HR. triamcinolone acetonide 40 mg/ml injectable suspension (20 sources) Corticosteroid Start: 09-17-19 Kenalog-40 30 Feb, 2023 40 mg Problems Active Problems Problem Classification Problem Date Documented Da te Episodic/Chronic Abdominal pain (2 sources) Right upper quadrant pain; Translations: [Lower abdominal pain, unspecified] Episodic Calculus of urinary tract (2 sources) History of calculus of kidney; Translations: [Personal history of urinary calculi] Onset: 04-17-2023 Episodic Cancer of prostate (20 sources) Malignant tumor of prostate; Translations: [Malignant neoplasm of prostate] Onset: 07-02-2014 08-06-2014 Chronic Comment on above: S/p Radical prostate ctomy 10/2014 and EBRT 2018 Cancer of prostate (5 sources) History of malignant neoplasm of prostate; Translations: [Personal history of malignant neoplasm of prostate] Onset: 04-14-2023 12-23-2019 Episodic Conduction disorders (18 sources) Left bundle branch block; Translations: [Other left bundle branch block] Onset: 08-25-2014 Chronic Coronary atherosclerosis and other heart disease (20 sources) Coronary arteriosclerosis; Translations: [Atherosclerotic heart disease of [place] coronary artery without angina pectoris] Onset: 10-10-2014 01-01-2019 Chronic Diabetes mellitus with complications (20 sources) Type 2 diabetes mellitus; Translations: [Type 2 diabetes mellitus with hyperglycemia] Onset: 07-17-1959 Chronic Diabetes mellitus without complication (10 sources) Type 2 diabetes mellitus without complication; Translations: [Type 2 diabetes mellitus without complications] Onset: 06-01-2023 Chronic Disorders of lipid metabolism (20 sources) Hyperlipidemia; Translations: [Hypercholesterolemi a] Onset: 07-17-1959 01-01-2019 Chronic Essential hypertension (20 sources) Hypertensive disorder; Translations: [Essential hypertension] Onset: 06-01-2023 Resolved: 06-01-2023 01-01-2019 Chronic Genitourinary symptoms and ill-defined conditions (8 sources) Microscopic hematuria; Translations: [Nocturia] Onset: 04-14-2023 01-01-2019 Episodic Heart valve disorders (20 sources) Aortic stenosis, non-rheumatic ; Translations: [Nonrheumatic aortic (valve) stenosis] Onset: 07-17-2014 Chronic Hyperplasia of prostate (2 sources) Lower urinary tract symptoms due to benign prostatic hypertrophy; Translations: [Hyperplasia of prostate, unspecified, with urinary obstruction and other lower urinary tract symptoms [LUTS]] Onset: 03-07-2013 Chronic Immunizations and screening for infectious disease (1 source) Vaccination given; Translations: [Encounter for immunization] Episodic Nausea and vomiting (2 sources) Nausea Episodic Neoplasms of unspecified nature or uncertain behavior (2 sources) Neoplastic disease; Translations: [Neoplasm of unspecified behavior of bone, soft tissue, and skin] 08-28-2023 Episodic Occlusion or stenosis of precerebral arteries (1 source) 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; Translations: [Occlusion and stenosis of carotid artery without mention of cerebral infarction] Onset: 07-27-2018 Chronic Osteoarthritis (20 sources) Osteoarthritis of joint of right shoulder region; Translations: [Primary osteoarthritis, right shoulder] Chronic Other circulatory disease (2 sources) Cardiovascular symptoms; Translations: [Other specified symptoms and signs involving the circulatory and respiratory systems] Onset: 07-25-2018 Episodic Other congenital anomalies (1 source) Other congenital malformations of iris; 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 Other ear and sense organ disorders (3 sources) Hearing loss; Translations: [Unspecified hearing loss, unspecified ear] Onset: 06-01-2023 06-01-2023 Chronic Other ear and sense organ disorders (3 sources) Sensorineural hearing loss, bilateral; Translations: [Sensorineural hearing loss, bilateral] Onset: 06-01-2023 06-01-2023 Chronic Other ear and sense organ disorders (1 source) Impacted cerumen, right ear Episodic Other eye disorders (4 sources) Anisocoria; 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] Onset: 06-01-2023 06-01-2023 Chronic Other injuries and conditions due to external causes (1 source) History of fall; Translations: [History of falling] Episodic Other male genital disorders (1 source) Impotence of organic origin; Translations: [Impotence of organic origin] Chronic Other nervous system disorders (20 sources) Chronic pain; Translations: [Other chronic pain] Chronic Other nervous system disorders (2 sources) Other chronic pain Chronic Other nervous system disorders (14 sources) Carpal tunnel syndrome; Translations: [Carpal tunnel syndrome, right upper limb] Chronic Other nervous system disorders (1 source) Carpal tunnel syndrome, right upper limb Chronic Other non-traumatic joint disorders (2 sources) Pain in right shoulder Episodic Other nutritional; endocrine; and metabolic disorders (20 sources) Body mass index 30+ - obesity; Translations: [Obesity, unspecified] Onset: 07-17-1959 Chronic Other nutritional; endocrine; and metabolic disorders (2 sources) Obesity, unspecified Chronic Other nutritional; endocrine; and metabolic disorders (1 source) Simple obesity ; Translations: [Other obesity due to excess calories] Onset: 07-17-1959 Chronic Other nutritional; endocrine; and metabolic disorders (5 sources) Obesity; Translations: [Obesity, unspecified] Onset: 06-01-2023 06-01-2023 Chronic Other nutritional; endocrine; and metabolic disorders (1 source) Obese class II; Translations: [Body mass index 35.0-35.9, adult] Onset: 07-17-1959 Chronic Other nutritional; endocrine; and metabolic disorders (1 source) Obese class I; Translations: [Body mass index 34.0-34.9, adult] Onset: 07-17-1959 Chronic Other nutritional; endocrine; and metabolic disorders (14 sources) Obesity caused by energy imbalance; Translations: [Other obesity due to excess calories] Chronic Other nutritional; endocrine; and metabolic disorders (1 source) Other obesity due to excess calories Chronic Other nutritional; endocrine; and metabolic disorders (1 source) Body mass index (BMI) 32.0-32.9, adult Chronic Other screening for suspected conditions (not mental disorders or infectious disease) (11 sources) Raised prostate specific antigen; Translations: [Rising PSA following treatment for malignant neoplasm of prostate] Onset: 11-08-2021 Episodic Other skin disorders (2 sources) Actinic keratosis; Translations: [Actinic keratosis] 08-28-2023 Episodic Other upper respiratory disease (1 source) Seasonal allergic rhinitis; Translations: [Other seasonal allergic rhinitis] Onset: 11-01-2017 Chronic Other upper respiratory disease (4 sources) Vasomotor rhinitis; Translations: [Vasomotor rhinitis] Onset: 06-05-2023 06-05-2023 Chronic Other upper respiratory disease (1 source) Vasomotor rhinitis Chronic Other upper respiratory disease (1 source) Other specified disorders of nose and nasal sinuses Episodic Pancreatic disorders (not diabetes) (4 sources) Other specified diseases of pancreas; Translations: [Cyst of pancreas] Episodic Residual codes; unclassified (20 sources) Obstructive sleep apnea syndrome; Translations: [Obstructive sleep apnea (adult) (pediatric)] Onset: 04-03-2017 Chronic Residual codes; unclassified (4 sources) Obstructive sleep apnea (adult) (pediatric) Chronic Residual codes; unclassified (3 sources) Sleep apnea; Translations: [Sleep apnea, unspecified] Onset: 06-01-2023 06-01-2023 Chronic Secondary malignancies (8 sources) Secondary malignant neoplasm of bone; Translations: [Secondary malignant neoplasm of bone] Chronic Secondary malignancies (2 sources) Secondary malignant neoplasm of bone Chronic Spondylosis; intervertebral disc disorders; other back problems (20 sources) Cervical spondylosis; Translations: [Other spondylosis with radiculopathy, cervical region] Onset: 07-24-2022 Chronic Sprains and strains (7 sources) Strain of hamstring muscle; Translations: [Right hamstring muscle strain] Episodic Unclassified (1 source) OPENED IN ERROR Past or Other Problems Problem Classification Problem Date Documented Date Episodic/Chronic Acute posthemorrhagic anemia (1 source) Acute posthemorrhagic anemia; Translations: [Acute posthemorrhagic anemia] Onset: 01-09-2015 Episodic Allergic reactions (1 source) Idiopathic urticaria; Translations: [Idiopathic urticaria] Onset: 11-01-2017 Episodic Coma; stupor; and brain damage (1 source) Somnolence; Translations: [Somnolence] Onset: 11-24-2016 Episodic Deficiency and other anemia (1 source) Anemia; Translations: [Anemia, unspecified] Onset: 01-21-2019 Episodic Diabetes mellitus without complication (1 source) Impaired fasting glycemia; Translations: [Impaired fasting glucose] Onset: 07-17-1959 Episodic Intracranial injury (1 source) Concussion with no loss of consciousness; Translations: [Concussion without loss of consciousness, subsequent encounter] Onset: 11-08-2017 Episodic Malaise and fatigue (1 source) Malaise and fatigue; Translations: [Other malaise and fatigue] Onset: 12-31-2015 Episodic Nonspecific chest pain (1 source) Chest pain; Translations: [Chest pain, unspecified] Onset: 08-25-2014 Episodic Other non-traumatic joint disorders (5 sources) Pain in left shoulder; Translations: [PAIN IN LEFT SHOULDER] Onset: 07-21-2022 Episodic Other nutritional; endocrine; and metabolic disorders (1 source) Morbid obesity; Translations: [Morbid (severe) obesity due to excess calories] Resolved: 01-21-2021 Chronic Residual codes; unclassified (1 source) Requires influenza virus vaccination; Translations: [Need for prophylactic vaccination and inoculation, Influenza] Onset: 04-03-2017 Episodic Results Test Name Value Interpretation Reference Range Facility No Panel Informationon 08-28 [facility] Type of biopsy: schmidt ential Informed consent: discussed and consent obtained Informed consent comment: The risks and benefits of the biopsy were discussed. Risks include but are not limited to bleeding, infection, scarring, pain, and nerve damage. An opportunity to ask questions prior to the procedure was permitted and all questions were answered. Patient was prepped and draped in usual sterile fashion: area cleansed with alcohol. Anesthesia: the lesion was anesthetized in a standard fashion Anesthetic: 1% lidocaine w/ epinephrine 1-100,000 buffered w/ 8.4% NaHCO3 Instrument used: DermaBlade Hemostasis achieved with: electrodesiccation Outcome: patient tolerated procedure well Outcome comment: The specimen was placed in a prelabeled formalin container to be sent for pathology Post-procedure details: sterile dressing applied and wound care instructions given Post-procedure details comment: Emphasized need to contact clinic for any signs of infection, uncontrollable bleeding, or complications. Dressing type: bandage Additional details: Photo taken yes Amount of lidocaine used: 0.5 cc [facility] CNOVSPon 08-03-2023 CNOVSP Visit (SP) Office ([facility]) PABLO FELIX ([id number]) 1945 M Date Time Provider Department 08/03/23 9:15 AM MARCO A ESQUEDA During your visit today, we recorded the following information about you: Temperature Pulse Respiration Blood pressure 97 degrees 54/minute 16/minute 160/70 Weight Height 94.5 kg 1.676 m Marco A Esqueda MD 08/04/2023 6:33 AM Signed PATIENT NAME: Pablo Felix DATE: 08/03/2023 PRIMARY CARE PHYSICIAN: Dr. Jamar Fall OTHER PHYSICIANS: Dr. Anthony Scruggs, Dr. Khan, [facility] Cardiology Portions of this encounter note have been copied from the note from 04/27/2023 and has been updated where appropriate, and reflect my current medical decision making from today. CC: This is a 78 year old male with metastatic prostate cancer, seen for scheduled follow-up. INTERIM HISTORY: Since the patient's last visit here he has noticed an increase in skin lesion over his right ear. It has slowly increased in size over the past several months. He also has noticed stomach problems . Apparently he develops nausea and upset stomach after eating certain foods, on and off for the past 6 months. Certain foods he tolerates well. He has had no associated nausea or vomiting. He has occasional diarrhea from the Xtandi for which he takes Imodium. Otherwise no change in bowel habits. He remains off Lupron and overall feels somewhat better. He remains on Xtandi which he is tolerating. MEDICATIONS: Current Outpatient Medications Medication Sig enzalutamide (XTANDI) 80 mg tablet Take 2 tablets (160 mg) by mouth once daily. Calcium Citrate-Vitamin D3 200 mg-6.25 mcg (250 unit) tab Take 2 tablets by mouth once daily. metoprolol succinate ER (TOPROL XL) 25 mg 24 hr tablet Take by mouth. Ewmgofloecldn-Kregztgj-Tgsr in (MULTIVITAMIN 50 PLUS) tab Take 1 tablet by mouth once daily. GLIMEPIRIDE ORAL Take 0.5 mg by mouth once daily. metFORMIN (GLUCOPHAGE) 1,000 mg tablet Take 1,000 mg by mouth once daily. atorvastatin (LIPITOR) 40 mg tablet Take 40 mg by mouth once daily. lisinopril-hydrochlorothiaz rosalee (PRINZIDE,ZESTORETIC) 20-12.5 mg per tablet Take 1 tablet by mouth once daily. aspirin, enteric coated (ASPIRIN, ENTERIC COATED) 81 mg EC tablet Take 81 mg by mouth once daily. No current facility-administered medications for this visit. ALLERGIES: ALLERGIES Allergen Reactions Penicillins Unknown Simvastatin Unknown PAST MEDICAL HISTORY: PAST MEDICAL HISTORY Diagnosis Date CAD (coronary artery disease) Hypercholesterolemia on medication Hypertension on medication Nocturia Prostate CA (HCC) Rising PSA level 10/2021 PAST SURGICAL HISTORY: PAST SURGICAL HISTORY Procedure Laterality Date APPENDECTOMY CORONARY ARTERY BYPASS GRAFT FAMILY HISTORY: FAMILY HISTORY Problem Relation Age of Onset Cancer Mother Cancer SOCIAL HISTORY: Social History Tobacco Use Smoking status: Never Passive exposure: Never Smokeless tobacco: Never Vaping Use Vaping Use: Never used Substance Use Topics Alcohol use: Yes Comment: 1 day/wk Drug use: No REVIEW OF SYSTEMS: General: No weight loss, malaise or fevers. HEENT: Negative for frequent or significant headaches. No changes in hearing or vision, no nose bleeds or other nasal problems. Respiratory: Negative for cough, wheezing or shortness of breath. Cardiovascular: Negative for chest pain, leg swelling or palpitations. GI: Negative for abdominal discomfort, blood in stools or black stools or change in bowel habits. : No history of dysuria, frequency or incontinence. Musculoskeletal: Negative for: joint pain or swelling, back pain and muscle pain. Skin: Negative for lesions, rash and itching. Hematology/Lymphology: Negative for prolonged bleeding, bruising easily or swollen nodes. Neuro: No history of headaches, syncope, paralysis, seizures or tremors. PHYSICAL EXAM: BP 160/70 Pulse (!) 54 Temp 36.1 ?C (97 ?F) (Temporal) Resp 16 Ht 167.6 cm (5' 5.98 ) Wt 94.5 kg (208 lb 5.4 oz) SpO2 99% BMI 33.64 kg/m? ECOG 0 Exam limited to gross visualization where appropriate due to COVID-19. Gen.: This is an age-appropriate patient in no acute distress. Head: Appears atraumatic with no visible lesions. Eyes: Pupils equally round and reactive to light, extraocular muscles are intact. Neck: Supple. Mouth: Masked. Respiratory: Appears to be respiring comfortably. Neurologic: Nonfocal to gross visualization. Alert and oriented ?3. Psychiatric: No evidence of inappropriate anxiety or depression. Skin: Visible areas of skin without rash, lesions, wounds or petechiae. 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 Left base margin positive for ne (more content not included)... Normal [facility] PABLO [facility]ELIX ([id number]) 1945 M Date Time Provider Department 08/03/23 MARCO A ESQUEDA During your visit today, we recorded the following information about you: Alexandrea Ernst 08/03/2023 9:23 AM Signed Patient needs an appointment with Dermatology for right ear lesion. Yudy/Narciso: Can you please refer patient to [facility] and follow up? Thanks! Naila Rodriguez 08/03/2023 9:51 AM Signed Yudy:Information ready for you. Keysha Neil 08/04/2023 8:05 AM Signed Records faxed to [facility] Dermatology. Naila Liao 08/07/2023 2:54 PM Signed Called [facility] Derm office. Patient is scheduled to see [facility] [employer] Long Boo on 08/28 @ 11:25. Naila Horne Pss Allergies As of Date: 08/03/2023 Noted Allergy Reaction PENICILLINS 08/06/2014 16 - Unknown SIMVASTATIN 07/05/2002 16 - Unknown Date Reviewed: 08/03/2023 Reviewed by: Katie Rosen MA - Fully Assessed Reason for Visit: Referral Information [0249] Cmt: Dermatology Prescriptions as of 08/07/2023 - ipratropium bromide (ATROVENT) 42 mcg (0.06 %) nasal spray 2 Sprays. - enzalutamide (XTANDI) 80 mg tablet Take 2 tablets (160 mg) by mouth once daily. - Calcium Citrate-Vitamin D3 200 mg-6.25 mcg (250 unit) tab Take 2 tablets by mouth once daily. - metoprolol succinate ER (TOPROL XL) 25 mg 24 hr tablet Take by mouth. - Qmzbogopkfhtr-Ftgkwdxu-Jlbt in (MULTIVITAMIN 50 PLUS) tab Take 1 tablet by mouth once daily. - GLIMEPIRIDE ORAL Take 0.5 mg by mouth once daily. - metFORMIN (GLUCOPHAGE) 1,000 mg tablet Take 1,000 mg by mouth once daily. - atorvastatin (LIPITOR) 40 mg tablet Take 40 mg by mouth once daily. - lisinopril-hydrochlorothiaz rosalee (PRINZIDE,ZESTORETIC) 20-12.5 mg per tablet Take 1 tablet by mouth once daily. - aspirin, enteric coated (ASPIRIN, ENTERIC COATED) 81 mg EC tablet Take 81 mg by mouth once daily. Problem List As Of Date 08/03/2023 Noted Resolved Malignant neoplasm of prostate (HCC) [C61] 08/06/2014 Encounter Status:Closed by ALEXANDREA ERNST on 08/07/23 Normal [facility] CBC W Auto Differential pane l (Bld)on 07-27-2023 Basophils (Bld) [#/Vol] 0.05 10*3/uL Normal <0.11 [facility] Comment on above: Order Comment: Speci men Type: BLOOD SPECIMENOrdering Facility: [facility] Address: [address] [place] [address] Performed By: #### 5 7021-8 ####[facility] LABCLIA [id number] [place] [address] Basophils/100 WBC (Bld) 0.8 % Normal [facility] Comment on above: Order Comment: Speci men Type: BLOOD SPECIMENOrdering Facility: [facility] Address: [address] [place] [address] Performed By: #### 5 7021-8 ####[facility] LABCLIA [id number] [place] [address] Differential cell count method Nom (Bld) Auto Normal [facility] Comment on above: Order Comment: Speci men Type: BLOOD SPECIMENOrdering Facility: [facility] Address: [address] [place] [address] Performed By: #### 5 7021-8 ####[facility] LABCLIA [id number] [place] [address] Eosinophils (Bld) [#/Vol] 0.40 10*3/uL Normal <0.46 [facility] Comment on above: Order Comment: Speci men Type: BLOOD SPECIMENOrdering Facility: [facility] Address: [address] [place] [address] Performed By: #### 5 7021-8 ####[facility] LABCLIA [id number] [place] [address] Eosinophils/100 WBC (Bld) 6.2 % Normal [facility] Comment on above: Order Comment: Speci men Type: BLOOD SPECIMENOrdering Facility: [facility] Address: [address] [place] [address] Performed By: #### 5 7021-8 ####[facility] LABCLIA [id number] [place] [address] Erythrocyte distribution width (RBC) [Ratio] 12.5 % Normal 11.5-15.0 [facility] Comment on above: Order Comment: Speci men Type: BLOOD SPECIMENOrdering Facility: [facility] Address: [address] [place] [address] Performed By: #### 5 7021-8 ####[facility] LABCLIA [id number] [place] [address] Hematocrit (Bld) [Volume fraction] 34.8 % Low 39.0-51.0 [facility] Comment on above: Order Comment: Speci men Type: BLOOD SPECIMENOrdering Facility: [facility] Address: [address] [place] [address] Performed By: #### 5 7021-8 ####[facility] LABCLIA [id number] [place] [address] Hemoglobin (Bld) [Mass/Vol] 11.8 g/dL Low 13.0-17.0 [facility] Comment on above: Order Comment: Speci men Type: BLOOD SPECIMENOrdering Facility: [facility] Address: [address] [place] [address] Performed By: #### 5 7021-8 ####[facility] LABCLIA [id number] [place] [address] Immature granulocytes (Bld) [#/Vol] 0.05 10*3/uL Normal <0.10 [facility] Comment on above: Order Comment: Speci men Type: BLOOD SPECIMENOrdering Facility: [facility] Address: [address] [place] [address] Performed By: #### 5 7021-8 ####[facility] LABCLIA [id number] [place] [address] Immature granulocytes/100 WBC (Bld) 0.8 % Normal [facility] Comment on above: Order Comment: Speci men Type: BLOOD SPECIMENOrdering Facility: [facility] Address: [address] [place] [address] Performed By: #### 5 7021-8 ####[facility] LABCLIA [id number] [place] [address] Lymphocytes (Bld) [#/Vol] 1.78 10*3/uL Normal 1.00-4.00 [facility] Comment on above: Order Comment: Speci men Type: BLOOD SPECIMENOrdering Facility: [facility] Address: [address] [place] [address] Performed By: #### 5 7021-8 ####[facility] LABCLIA [id number] [place] [address] Lymphocytes/100 WBC (Bld) 27.7 % Normal [facility] Comment on above: Order Comment: Speci men Type: BLOOD SPECIMENOrdering Facility: [facility] Address: [address] [place] [address] Performed By: #### 5 7021-8 ####[facility] LABCLIA [id number] [place] [address] MCH (RBC) [Entitic mass] 32.2 pg Normal 26.0-34.0 [facility] Comment on above: Order Comment: Speci men Type: BLOOD SPECIMENOrdering Facility: [facility] Address: [address] [place] [address] Performed By: #### 5 7021-8 ####[facility] LABCLIA [id number] [place] [address] MCHC (RBC) [Mass/Vol] 33.9 g/dL Normal 30.5-36.0 [facility] Comment on above: Order Comment: Speci men Type: BLOOD SPECIMENOrdering Facility: [facility] Address: [address] [place] [address] Performed By: #### 5 7021-8 ####[facility] LABIA [id number] [place] [address] MCV (RBC) [Entitic vol] 94.8 fL Normal 80.0-100.0 [facility] Comment on above: Order Comment: Speci men Type: BLOOD SPECIMENOrdering Facility: [facility] Address: [address] [place] [address] Performed By: #### 5 7021-8 ####[facility] LABCLIA [id number] [place] [address] Monocytes (Bld) [#/Vol] 0.67 10*3/uL Normal <0.87 [facility] Comment on above: Order Comment: Speci men Type: BLOOD SPECIMENOrdering Facility: [facility] Address: [address] [place] [address] Performed By: #### 5 7021-8 ####[facility] LABCLIA [id number] [place] [address] Monocytes/100 WBC (Bld) 10.4 % Normal [facility] Comment on above: Order Comment: Speci men Type: BLOOD SPECIMENOrdering Facility: [facility] Address: [address] [place] [address] Performed By: #### 5 7021-8 ####[facility] LABCLIA [id number] [place] [address] Neutrophils (Bld) [#/Vol] 3.48 10*3/uL Normal 1.45-7.50 [facility] Comment on above: Order Comment: Speci men Type: BLOOD SPECIMENOrdering Facility: [facility] Address: [address] [place] [address] Performed By: #### 5 7021-8 ####[facility] LABCLIA [id number] [place] [address] Neutrophils/100 WBC (Bld) 54.1 % Normal [facility] Comment on above: Order Comment: Speci men Type: BLOOD SPECIMENOrdering Facility: [facility] Address: [address] [place] [address] Performed By: #### 5 7021-8 ####[facility] LABCLIA [id number] [place] [address] Nucleated RBC (Bld) [#/Vol] 10*3/uL Normal <0.01 [facility] Comment on above: Order Comment: Speci men Type: BLOOD SPECIMENOrdering Facility: [facility] Address: [address] [place] [address] Performed By: #### 5 7021-8 ####[facility] LABCLIA [id number] [place] [address] Nucleated RBC/100 WBC (Bld) [Ratio] 0.0 /100 WBC Normal [facility] Comment on above: Order Comment: Speci men Type: BLOOD SPECIMENOrdering Facility: [facility] Address: [address] [place] [address] Performed By: #### 5 7021-8 ####[facility] LABIA [id number] [place] [address] Platelet mean volume (Bld) [Entitic vol] 9.9 fL Normal 9.0-12.7 [facility] Comment on above: Order Comment: Speci men Type: BLOOD SPECIMENOrdering Facility: [facility] Address: [address] [place] [address] Performed By: #### 5 7021-8 ####[facility] LABIA [id number] [place] [address] Platelets (Bld) [#/Vol] 199 10*3/uL Normal 150-400 [facility] Comment on above: Order Comment: Speci men Type: BLOOD SPECIMENOrdering Facility: [facility] Address: [address] [place] [address] Performed By: #### 5 7021-8 ####[facility] LABIA [id number] [place] [address] RBC (Bld) [#/Vol] 3.67 10*6/uL Low 4.20-6.00 [facility] Comment on above: Order Comment: Speci men Type: BLOOD SPECIMENOrdering Facility: [facility] Address: [address] [place] [address] Performed By: #### 5 7021-8 ####[facility] LABCLIA [id number] [place] [address] WBC (Bld) [#/Vol] 6.43 10*3/uL Normal 3.70-11.00 [facility] Comment on above: Order Comment: Speci men Type: BLOOD SPECIMENOrdering Facility: [facility] Address: [address] [place] [address] Performed By: #### 5 7021-8 ####[facility] LABCLIA [id number] [place] [address] Comprehensive metabolic 2000 panelon 07-27-2023 Albumin [Mass/Vol] 4.2 g/dL Normal 3.9-4.9 [facility] Comment on above: Order Comment: Speci men Type: BLOOD SPECIMENOrdering Facility: [facility] Address: [address] [place] [address] Performed By: #### 2 4323-8 ####[facility] LABCLIA [id number] [place] [address] ALP [Catalytic activity/Vol] 73 U/L Normal 38-113 [facility] Comment on above: Order Comment: Speci men Type: BLOOD SPECIMENOrdering Facility: [facility] Address: [address] [place] [address] Performed By: #### 2 4323-8 ####[facility] LABCLIA [id number] [place] [address] ALT [Catalytic activity/Vol] 16 U/L Normal 10-54 [facility] Comment on above: Order Comment: Speci men Type: BLOOD SPECIMENOrdering Facility: [facility] Address: [address] [place] [address] Performed By: #### 2 4323-8 ####[facility] LABCLIA [id number] [place] [address] Anion gap [Moles/Vol] 10 mmol/L Normal 9-18 [facility] Comment on above: Order Comment: Speci men Type: BLOOD SPECIMENOrdering Facility: [facility] Address: [address] [place] [address] Performed By: #### 2 4323-8 ####[facility] LABCLIA [id number] [place] [address] AST [Catalytic activity/Vol] 17 U/L Normal 14-40 [facility] Comment on above: Order Comment: Speci men Type: BLOOD SPECIMENOrdering Facility: [facility] Address: [address] [place] [address] Performed By: #### 2 4323-8 ####[facility] LABCLIA [id number] [place] [address] Bilirubin [Mass/Vol] 0.6 mg/dL Normal 0.2-1.3 [facility] Comment on above: Order Comment: Speci men Type: BLOOD SPECIMENOrdering Facility: [facility] Address: [address] [place] [address] Performed By: #### 2 4323-8 ####[facility] LABCLIA [id number] [place] [address] Calcium [Mass/Vol] 9.5 mg/dL Normal 8.5-10.2 [facility] Comment on above: Order Comment: Speci men Type: BLOOD SPECIMENOrdering Facility: [facility] Address: [address] [place] [address] Performed By: #### 2 4323-8 ####[facility] LABCLIA [id number] [place] [address] Chloride [Moles/Vol] 102 mmol/L Normal 97-105 [facility] Comment on above: Order Comment: Speci men Type: BLOOD SPECIMENOrdering Facility: [facility] Address: [address] [place] [address] Performed By: #### 2 4323-8 ####[facility] LABCLIA [id number] [place] [address] CO2 [Moles/Vol] 26 mmol/L Normal 22-30 [facility] Comment on above: Order Comment: Speci men Type: BLOOD SPECIMENOrdering Facility: [facility] Address: [address] [place] [address] Performed By: #### 2 4323-8 ####[facility] LABCLIA [id number] [place] [address] Creatinine [Mass/Vol] 0.85 mg/dL Normal 0.73-1.22 [facility] Comment on above: Order Comment: Speci men Type: BLOOD SPECIMENOrdering Facility: [facility] Address: [address] [place] [address] Performed By: #### 2 4323-8 ####[facility] LABCLIA [id number] [place] [address] Creatinine and Glomerular filtration rate.predicted panel (S/P/Bld) 89 mL/min/1.73m??? Normal >=60 [facility] Comment on above: Order Comment: Speci men Type: BLOOD SPECIMENOrdering Facility: [facility] Address: [address] [place] [address] Result Comment: Renae mated Glomerular Filtration Rate (eGFR) is calculated using the 2020 CKD-EPI creatinine equation. This equation utilizes serum creatinine, sex, and age as parameters. The creatinine assay has traceable calibration to isotope dilution-mass spectrometry. Refer to KDIGO guidelines for clinical interpretation. In patients with unstable renal function, e.g. those with acute kidney injury, the eGFR may not accurately reflect actual GFR. Performed By: #### 2 4323-8 ####[facility] LABCLIA [id number] [place] [address] Glucose [Mass/Vol] 117 mg/dL High 74-99 [facility] Comment on above: Order Comment: Speci ton Type: BLOOD SPECIMENOrdering Facility: [facility] Address: [address] [place] [address] Result Comment: The [place] [employer] (ADA) provides guidance for cutoff values for fasting glucose and random glucose. The ADA defines fasting as no caloric intake for at least 8 hours. Fasting plasma glucose results between 100 to 125 mg/dL indicate increased risk for diabetes (prediabetes). Fasting plasma glucose results greater than or equal to 126 mg/dL meet the criteria for diagnosis of diabetes. In the absence of unequivocal hyperglycemia, results should be confirmed by repeat testing. In a patient with classic symptoms of hyperglycemia or hyperglycemic crisis, random plasma glucose results greater than or equal to 200 mg/dL meet the criteria for diagnosis of diabetes. Reference: Standards of Medical Care in Diabetes 2016, [place] [employer]. Diabetes Care. 2016.39(Suppl 1). Performed By: #### 2 4323-8 ####[facility] LABCLIA [id number] [place] [address] Potassium [Moles/Vol] 4.8 mmol/L Normal 3.7-5.1 [facility] Comment on above: Order Comment: Speci men Type: BLOOD SPECIMENOrdering Facility: [facility] Address: [address] [place] [address] Performed By: #### 2 4323-8 ####[facility] LABCLIA [id number] [place] [address] Protein [Mass/Vol] 6.6 g/dL Normal 6.3-8.0 [facility] Comment on above: Order Comment: Speci men Type: BLOOD SPECIMENOrdering Facility: [facility] Address: [address] [place] [address] Performed By: #### 2 4323-8 ####[facility] LABCLIA [id number] [place] [address] Sodium [Moles/Vol] 138 mmol/L Normal 136-144 [facility] Comment on above: Order Comment: Speci men Type: BLOOD SPECIMENOrdering Facility: [facility] Address: [address] [place] [address] Performed By: #### 2 4323-8 ####[facility] LABCLIA [id number] [place] [address] Urea nitrogen [Mass/Vol] 13 mg/dL Normal 9-24 [facility] Comment on above: Order Comment: Speci men Type: BLOOD SPECIMENOrdering Facility: [facility] Address: [address] [place] [address] Performed By: #### 2 4323-8 ####[facility] LABCLIA [id number] [place] [address] [facility] Prostate specific Ag [Mass/Vol] 0.13 ng/mL Normal <2.60 [facility] Comment on above: Order Comment: Speci men Type: BLOOD SPECIMENOrdering Facility: [facility] Address: [facility] [place] [id number] Result Comment: Tota l PSA test methodology used is the Electrochemiluminescence Immunoassay by [employer]. Total PSA values by differing methodologies cannot be interchanged. Performed By: #### 2 857-1 ####[facility] LABCLIA [id number] [address] [id number] [id number] [facility] Office Visiton 06-22-2023 Follow-up visit [id number] Pablo Felix 1945 M Date Provider Department Center 06/22/2023 Erika-BRIDGER MULLIGAN CARD Armando Kc Family History Problem Relation Age of Onset Coronary artery disease Father Family Status - Relation Status Age at Father Level of Service:18822 [place] OFFICE/OUTPATIENT ESTABLISHED MOD MDM 30-39 MIN Normal [facility] CNOVSPon 04-27-2023 CNOVSP Visit (SP) Office (H EMASA) PABLO FELIX ([id number]) 1945 M Date Time Provider Department 04/27/23 10:00 AM CHRISTO HOWARD During your visit today, we recorded the following information about you: Temperature Pulse Respiration Blood pressure 97 degrees 50/minute 16/minute 141/49 Weight Height 92.5 kg 1.676 m Christo Howard APRN.[employer] 04/27/2023 11:16 AM Signed PATIENT NAME: Pablo Felix DATE: 04/27/2023 PRIMARY CARE PHYSICIAN: Dr. Jamar Fall OTHER PHYSICIANS: Dr. Anthony Scruggs, Dr. Khan, [facility] Cardiology Portions of this encounter note have been copied from the note from 02/02/2023 and has been updated where appropriate, and reflect my current medical decision making from today. CC: This is a 78 year old male with metastatic prostate cancer, seen for scheduled follow-up and Xgeva. INTERIM HISTORY: Pablo Felix returns for follow-up. He remains on Xtandi 160 mg daily. He had been on Lupron every 6 months, but his injection scheduled for April [address] Scruggs, due to low PSA level. (Lupron last given March 2022). He is tolerating the Xtandi well and denies any side effects. He has been having some issues with his stomach and has underwent multiple testing per Dr. Fall. He denies any unusual bone pain. He denies any changes in urination. No pain, burning or difficulty. MEDICATIONS: Current Outpatient Medications Medication Sig aspirin, enteric coated (ASPIRIN, ENTERIC COATED) 81 mg EC tablet Take 81 mg by mouth once daily. atorvastatin (LIPITOR) 40 mg tablet Take 40 mg by mouth once daily. Calcium Citrate-Vitamin D3 200 mg-6.25 mcg (250 unit) tab Take 2 tablets by mouth once daily. enzalutamide (XTANDI) 80 mg tablet Take 2 tablets (160 mg) by mouth once daily. GLIMEPIRIDE ORAL Take 0.5 mg by mouth once daily. lisinopril-hydrochlorothiaz rosalee (PRINZIDE,ZESTORETIC) 20-12.5 mg per tablet Take 1 tablet by mouth once daily. metFORMIN (GLUCOPHAGE) 1,000 mg tablet Take 1,000 mg by mouth once daily. metoprolol succinate ER (TOPROL XL) 25 mg 24 hr tablet Take by mouth. Ikkuwxfxisnkb-Uplscmhp-Ombd in (MULTIVITAMIN 50 PLUS) tab Take 1 tablet by mouth once daily. No current facility-administered medications for this visit. ALLERGIES: ALLERGIES Allergen Reactions Penicillins Unknown Simvastatin Unknown PAST MEDICAL HISTORY: PAST MEDICAL HISTORY Diagnosis Date CAD (coronary artery disease) Hypercholesterolemia on medication Hypertension on medication Nocturia Prostate CA (HCC) Rising PSA level 10/2021 PAST SURGICAL HISTORY: PAST SURGICAL HISTORY Procedure Laterality Date APPENDECTOMY CORONARY ARTERY BYPASS GRAFT FAMILY HISTORY: FAMILY HISTORY Problem Relation Age of Onset Cancer Mother Cancer SOCIAL HISTORY: Social History Tobacco Use Smoking status: Never Passive exposure: Never Smokeless tobacco: Never Vaping Use Vaping Use: Never used Substance Use Topics Alcohol use: Yes Comment: 1 day/wk Drug use: No REVIEW OF SYSTEMS: General: No weight loss, malaise or fevers. HEENT: Negative for frequent or significant headaches. No changes in hearing or vision, no nose bleeds or other nasal problems. Respiratory: Negative for cough, wheezing or shortness of breath. Cardiovascular: Negative for chest pain, leg swelling or palpitations. GI: Negative for abdominal discomfort, blood in stools or black stools or change in bowel habits. : No history of dysuria, frequency or incontinence. Musculoskeletal: Negative for: joint pain or swelling, back pain and muscle pain. Skin: Negative for lesions, rash and itching. Hematology/Lymphology: Negative for prolonged bleeding, bruising easily or swollen nodes. Neuro: No history of headaches, syncope, paralysis, seizures or tremors. PHYSICAL EXAM: BP (!) 141/49 Pulse (!) 50 Temp 36.1 ?C (97 ?F) (Temporal) Resp 16 Ht 167.6 cm (5' 5.98 ) Wt 92.5 kg (204 lb) SpO2 100% BMI 32.94 kg/m? ECOG 0 Exam limited to gross visualization where appropriate due to COVID-19. Gen.: This is an age-appropriate patient in no acute distress. Head: Appears atraumatic with no visible lesions. Eyes: Pupils equally round and reactive to light, extraocular muscles are intact. Neck: Supple. Mouth: Masked. Respiratory: Appears to be respiring comfortably. Neurologic: Nonfocal to gross visualization. Alert and oriented ?3. Psychiatric: No evidence of inappropriate anxiety or depression. Skin: Visible areas of skin without rash, lesions, wounds or petechiae. 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 Left base margin positive for neoplasm. Seminal vesicles with no diagnostic abnormality. 2 resected lymph nodes negati (more content not included)... Normal [facility] Basic metabolic 2000 panelon 04-24-2023 Anion gap [Moles/Vol] 13 mmol/L Normal 9-18 [facility] Comment on above: Order Comment: Speci men Type: BLOOD SPECIMENOrdering Facility: [facility] Address: [address] [place] [address] Performed By: #### 2 4321-2 ####[facility] LABCLIA [id number] [place] [address] Calcium [Mass/Vol] 10.2 mg/dL Normal 8.5-10.2 [facility] Comment on above: Order Comment: Speci men Type: BLOOD SPECIMENOrdering Facility: [facility] Address: [address] [place] [address] Performed By: #### 2 4321-2 ####[facility] LABCLIA [id number] [place] [address] Chloride [Moles/Vol] 100 mmol/L Normal 97-105 [facility] Comment on above: Order Comment: Speci men Type: BLOOD SPECIMENOrdering Facility: [facility] Address: [address] [place] [address] Performed By: #### 2 4321-2 ####[facility] LABCLIA [id number] [place] [address] CO2 [Moles/Vol] 24 mmol/L Normal 22-30 [facility] Comment on above: Order Comment: Speci men Type: BLOOD SPECIMENOrdering Facility: [facility] Address: [address] [place] [address] Performed By: #### 2 4321-2 ####[facility] LABCLIA [id number] [place] [address] Creatinine [Mass/Vol] 0.75 mg/dL Normal 0.73-1.22 [facility] Comment on above: Order Comment: Speci men Type: BLOOD SPECIMENOrdering Facility: [facility] Address: [address] [place] [address] Performed By: #### 2 4321-2 ####[facility] LABCLIA [id number] [place] [address] Creatinine and Glomerular filtration rate.predicted panel (S/P/Bld) 93 mL/min/1.73m??? Normal >=60 [facility] Comment on above: Order Comment: Speci men Type: BLOOD SPECIMENOrdering Facility: [facility] Address: [address] [place] [address] Result Comment: Renae mated Glomerular Filtration Rate (eGFR) is calculated using the 2020 CKD-EPI creatinine equation. This equation utilizes serum creatinine, sex, and age as parameters. The creatinine assay has traceable calibration to isotope dilution-mass spectrometry. Refer to KDIGO guidelines for clinical interpretation. In patients with unstable renal function, e.g. those with acute kidney injury, the eGFR may not accurately reflect actual GFR. Performed By: #### 2 4321-2 ####[facility] LABCLIA [id number] [place] [address] Glucose [Mass/Vol] 113 mg/dL High 74-99 [facility] Comment on above: Order Comment: Nicanor camilo Type: BLOOD SPECIMENOrdering Facility: [facility] Address: [address] [place] [address] Result Comment: The [place] Diabetes Association (ADA) provides guidance for cutoff values for fasting glucose and random glucose. The ADA defines fasting as no caloric intake for at least 8 hours. Fasting plasma glucose results between 100 to 125 mg/dL indicate increased risk for diabetes (prediabetes). Fasting plasma glucose results greater than or equal to 126 mg/dL meet the criteria for diagnosis of diabetes. In the absence of unequivocal hyperglycemia, results should be confirmed by repeat testing. In a patient with classic symptoms of hyperglycemia or hyperglycemic crisis, random plasma glucose results greater than or equal to 200 mg/dL meet the criteria for diagnosis of diabetes. Reference: Standards of Medical Care in Diabetes 2016, [place] [employer] Association. Diabetes Care. 2016.39(Suppl 1). Performed By: #### 2 4321-2 ####[facility] LABCLIA [id number] [place] [address] Potassium [Moles/Vol] 4.9 mmol/L Normal 3.7-5.1 [facility] Comment on above: Order Comment: Speci men Type: BLOOD SPECIMENOrdering Facility: [facility] Address: [address] [place] [address] Performed By: #### 2 4321-2 ####[facility] LABCLIA [id number] [place] [address] Sodium [Moles/Vol] 137 mmol/L Normal 136-144 [facility] Comment on above: Order Comment: Speci men Type: BLOOD SPECIMENOrdering Facility: [facility] Address: [address] [place] [address] Performed By: #### 2 4321-2 ####[facility] LABCLIA [id number] [place] [address] Urea nitrogen [Mass/Vol] 11 mg/dL Normal 9-24 [facility] Comment on above: Order Comment: Speci men Type: BLOOD SPECIMENOrdering Facility: [facility] Address: [address] [place] [address] Performed By: #### 2 4321-2 ####[facility] LABCLIA [id number] [place] [address] CBC W Auto Differential pane l (Bld)on 04-24-2023 Basophils (Bld) [#/Vol] 0.03 10*3/uL Normal <0.11 [facility] Comment on above: Order Comment: Speci men Type: BLOOD SPECIMENOrdering Facility: [facility] Address: [address] [place] [address] Performed By: #### 5 7021-8 ####[facility] LABCLIA [id number] [place] [address] Basophils/100 WBC (Bld) 0.4 % Normal [facility] Comment on above: Order Comment: Speci men Type: BLOOD SPECIMENOrdering Facility: [facility] Address: [address] [place] [address] Performed By: #### 5 7021-8 ####[facility] LABCLIA [id number] [place] [address] Differential cell count method Nom (Bld) Auto Normal [facility] Comment on above: Order Comment: Speci men Type: BLOOD SPECIMENOrdering Facility: [facility] Address: [address] [place] [address] Performed By: #### 5 7021-8 ####[facility] LABCLIA [id number] [place] [address] Eosinophils (Bld) [#/Vol] 0.23 10*3/uL Normal <0.46 [facility] Comment on above: Order Comment: Speci men Type: BLOOD SPECIMENOrdering Facility: [facility] Address: [address] [place] [address] Performed By: #### 5 7021-8 ####[facility] LABCLIA [id number] [place] [address] Eosinophils/100 WBC (Bld) 3.4 % Normal [facility] Comment on above: Order Comment: Speci men Type: BLOOD SPECIMENOrdering Facility: [facility] Address: [address] [place] [address] Performed By: #### 5 7021-8 ####[facility] LABCLIA [id number] [place] [address] Erythrocyte distribution width (RBC) [Ratio] 13.1 % Normal 11.5-15.0 [facility] Comment on above: Order Comment: Speci men Type: BLOOD SPECIMENOrdering Facility: [facility] Address: [address] [place] [address] Performed By: #### 5 7021-8 ####[facility] LABCLIA [id number] [place] [address] Hematocrit (Bld) [Volume fraction] 36.2 % Low 39.0-51.0 [facility] Comment on above: Order Comment: Speci men Type: BLOOD SPECIMENOrdering Facility: [facility] Address: [address] [place] [address] Performed By: #### 5 7021-8 ####[facility] LABCLIA [id number] [place] [address] Hemoglobin (Bld) [Mass/Vol] 12.2 g/dL Low 13.0-17.0 [facility] Comment on above: Order Comment: Speci men Type: BLOOD SPECIMENOrdering Facility: [facility] Address: [address] [place] [address] Performed By: #### 5 7021-8 ####[facility] LABCLIA [id number] [place] [address] Immature granulocytes (Bld) [#/Vol] 0.07 10*3/uL Normal <0.10 [facility] Comment on above: Order Comment: Speci men Type: BLOOD SPECIMENOrdering Facility: [facility] Address: [address] [place] [address] Performed By: #### 5 7021-8 ####[facility] LABCLIA [id number] [place] [address] Immature granulocytes/100 WBC (Bld) 1.0 % Normal [facility] Comment on above: Order Comment: Speci men Type: BLOOD SPECIMENOrdering Facility: [facility] Address: [address] [place] [address] Performed By: #### 5 7021-8 ####[facility] LABCLIA [id number] [place] [address] Lymphocytes (Bld) [#/Vol] 2.02 10*3/uL Normal 1.00-4.00 [facility] Comment on above: Order Comment: Speci men Type: BLOOD SPECIMENOrdering Facility: [facility] Address: [address] [place] [address] Performed By: #### 5 7021-8 ####[facility] LABCLIA [id number] [place] [address] Lymphocytes/100 WBC (Bld) 29.7 % Normal [facility] Comment on above: Order Comment: Speci men Type: BLOOD SPECIMENOrdering Facility: [facility] Address: [address] [place] [address] Performed By: #### 5 7021-8 ####[facility] LABCLIA [id number] [place] [address] MCH (RBC) [Entitic mass] 31.5 pg Normal 26.0-34.0 [facility] Comment on above: Order Comment: Speci men Type: BLOOD SPECIMENOrdering Facility: [facility] Address: [address] [place] [address] Performed By: #### 5 7021-8 ####[facility] LABCLIA [id number] [place] [address] MCHC (RBC) [Mass/Vol] 33.7 g/dL Normal 30.5-36.0 [facility] Comment on above: Order Comment: Speci men Type: BLOOD SPECIMENOrdering Facility: [facility] Address: [address] [place] [address] Performed By: #### 5 7021-8 ####[facility] LABCLIA [id number] [place] [address] MCV (RBC) [Entitic vol] 93.5 fL Normal 80.0-100.0 [facility] Comment on above: Order Comment: Speci men Type: BLOOD SPECIMENOrdering Facility: [facility] Address: [address] [place] [address] Performed By: #### 5 7021-8 ####[facility] LABCLIA [id number] [place] [address] Monocytes (Bld) [#/Vol] 0.62 10*3/uL Normal <0.87 [facility] Comment on above: Order Comment: Speci men Type: BLOOD SPECIMENOrdering Facility: [facility] Address: [address] [place] [address] Performed By: #### 5 7021-8 ####[facility] LABCLIA [id number] [place] [address] Monocytes/100 WBC (Bld) 9.1 % Normal [facility] Comment on above: Order Comment: Speci men Type: BLOOD SPECIMENOrdering Facility: [facility] Address: [address] [place] [address] Performed By: #### 5 7021-8 ####[facility] LABCLIA [id number] [place] [address] Neutrophils (Bld) [#/Vol] 3.83 10*3/uL Normal 1.45-7.50 [facility] Comment on above: Order Comment: Speci men Type: BLOOD SPECIMENOrdering Facility: [facility] Address: [address] [place] [address] Performed By: #### 5 7021-8 ####[facility] LABCLIA [id number] [place] [address] Neutrophils/100 WBC (Bld) 56.4 % Normal [facility] Comment on above: Order Comment: Speci men Type: BLOOD SPECIMENOrdering Facility: [facility] Address: [address] [place] [address] Performed By: #### 5 7021-8 ####[facility] LABCLIA [id number] [place] [address] Nucleated RBC (Bld) [#/Vol] 10*3/uL Normal <0.01 [facility] Comment on above: Order Comment: Speci men Type: BLOOD SPECIMENOrdering Facility: [facility] Address: [address] [place] [address] Performed By: #### 5 7021-8 ####[facility] LABCLIA [id number] [place] [address] Nucleated RBC/100 WBC (Bld) [Ratio] 0.0 /100 WBC Normal [facility] Comment on above: Order Comment: Speci men Type: BLOOD SPECIMENOrdering Facility: [facility] Address: [address] [place] [address] Performed By: #### 5 7021-8 ####[facility] LABCLIA [id number] [place] [address] Platelet mean volume (Bld) [Entitic vol] 10.0 fL Normal 9.0-12.7 [facility] Comment on above: Order Comment: Speci men Type: BLOOD SPECIMENOrdering Facility: [facility] Address: [address] [place] [address] Performed By: #### 5 7021-8 ####[facility] LABCLIA [id number] [place] [address] Platelets (Bld) [#/Vol] 195 10*3/uL Normal 150-400 [facility] Comment on above: Order Comment: Speci men Type: BLOOD SPECIMENOrdering Facility: [facility] Address: [address] [place] [address] Performed By: #### 5 7021-8 ####[facility] LABCLIA [id number] [place] [address] RBC (Bld) [#/Vol] 3.87 10*6/uL Low 4.20-6.00 [facility] Comment on above: Order Comment: Speci men Type: BLOOD SPECIMENOrdering Facility: [facility] Address: [address] [place] [address] Performed By: #### 5 7021-8 ####[facility] LABCLIA [id number] [place] [address] WBC (Bld) [#/Vol] 6.80 10*3/uL Normal 3.70-11.00 [facility] Comment on above: Order Comment: Speci men Type: BLOOD SPECIMENOrdering Facility: [facility] Address: [address] [place] [address] Performed By: #### 5 7021-8 ####[facility] LABCLIA [id number] [place] [address] PSA SerPl-mCncon 04-24-2023 Prostate specific Ag [Mass/Vol] 0.12 ng/mL Normal <2.60 [facility] Comment on above: Order Comment: Speci men Type: BLOOD SPECIMENOrdering Facility: [facility] Address: [address] [place] [address] Result Comment: Tota l PSA test methodology used is the Electrochemiluminescence Immunoassay by [employer]. Total PSA values by differing methodologies cannot be interchanged. Performed By: #### 2 857-1 ####[facility] LABCLIA [id number] [address] [place] RAD - MISCon 04-24-2023 RAD - MISC [id number] Normal [facility] Testost SerPl-mCncon 023 Testosterone [Mass/Vol] 49 ng/dL Low 193-824 [facility] Comment on above: Order Comment: Speci men Type: BLOOD SPECIMENOrdering Facility: [facility] Address: [address] [place] [address] Result Comment: A te stosterone level in the 193-320 ng/dL range with associated clinical symptoms is considered low and may indicate hypogonadism (from ALJ 2010 363:123-135). Results >320 ng/dL are considered normal. Result rechecked. Performed By: #### 2 986-8 ####[facility] LABCLIA [id number] [address] [place] Ambulatory Visit Summaryon 1 Ambulatory Visit Summary PABLO EFLIX :1945 Visit Date:04/17/2023 Ambulatory Visit Instructions Your Diagnosis Rising PSA following treatment for malignant neoplasm of prostate History of prostate cancer Microscopic hematuria History of kidney stones Tests Performed Urnls Dip Stick Auto w/o Microscopy POC 01020 XR Abdomen 1 View -- Results Pending -- Please visit your patient portal for your results or contact your primary care physician. Your Care Team Attending Physician - Anthony SCRUGGS MD Primary Care Physician - JAMAR FALL DO This Is Your Medications List Contact prescribing physician if questions or concerns aspirin (aspirin 81 mg oral tablet) atorvastatin (atorvastatin 40 mg Tab) cholecalciferol (Vitamin D3) enzalutamide (Xtandi 80 mg oral tablet) glimepiride hydrochlorothiazide-lisinop ril (hydrochlorothiazide-lisino pril 12.5 mg-20 mg Tab) metformin (metformin 1000 mg oral tablet) metoprolol (metoprolol 25 mg ER Tab) Procedures Performed External beam radiotherapy (03/30/2018), Cystoscopy (10/20/2015), Radical prostatectomy (11/05/2014), 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 Discharge Vitals Heart Rate (Peripheral) 62 Respiratory Rate 16 Blood Pressure 130/68 Height 167 cm Height 66 in Weight 99 kg Weight 217.8 lb BMI 35.5 What to do next Scheduled Follow-Up Appointments Monday 8:45 AM EDT With: KAEL JAMES, Anthony Lee Where: [facility] Patient Educationon 04-17-20 Patient Education Oncology Prostate Cancer The prostate is a small gland that produces fluid that makes up semen (seminal fluid). It is located below the bladder in men, in front of the rectum. Prostate cancer is the abnormal growth of cells in the prostate gland. What are the causes? The exact cause of this condition is not known. What increases the risk? You are more likely to develop this condition if: ? You are 65 years of age or older. ? You have a family history of prostate cancer. ? You have a family history of breast and ovarian cancer. ? You have genes that are passed from parent to child (inherited), such as BRCA1 and BRCA2. ? You have Montague syndrome. men and men of descent are diagnosed with prostate cancer at higher rates than other men. The reasons for this are not well understood and are likely due to a combination of genetic and environmental factors. What are the signs or symptoms? Symptoms of this condition include: ? Problems with urination. This may include: ? A weak or interrupted flow of urine. ? Trouble starting or stopping urination. ? Trouble emptying the bladder all the way. ? The need to urinate more often, especially at night. ? Blood in urine or semen. ? Persistent pain or discomfort in the lower back, lower abdomen, or hips. ? Trouble getting an erection. ? Weakness or numbness in the legs or feet. How is this diagnosed? This condition can be diagnosed with: ? A digital rectal exam. For this exam, a health care provider inserts a gloved finger into the rectum to feel the prostate gland. ? A blood test called a prostate-specific antigen (PSA) test. ? A procedure in which a sample of tissue is taken from the prostate and checked under a microscope (prostate biopsy). ? An imaging test called transrectal ultrasonography. Once the condition is diagnosed, tests will be done to determine how far the cancer has spread. This is called staging the cancer. Staging may involve imaging tests, such as a bone scan, CT scan, PET scan, or MRI. Stages of prostate cancer The stages of prostate cancer are as follows: ? Stage 1 (I). At this stage, the cancer is found in the prostate only. The cancer is not visible on imaging tests, and it is usually found by accident, such as during prostate surgery. ? Stage 2 (II). At this stage, the cancer is more advanced than it is in stage 1, but the cancer has not spread outside the prostate. ? Stage 3 (III). At this stage, the cancer has spread beyond the outer layer of the prostate to nearby tissues. The cancer may be found in the seminal vesicles, which are near the bladder and the prostate. ? Stage 4 (IV). At this stage, the cancer has spread to other parts of the body, such as the lymph nodes, bones, bladder, rectum, liver, or lungs. Prostate cancer grading Prostate cancer is also graded according to how the cancer cells look under a microscope. This is called the Ponce score and the total score can range from 6?10, indicating how likely it is that the cancer will spread (metastasize) to other parts of the body. The higher the score, the greater the likelihood that the cancer will spread. ? Ponce 6 or lower: This indicates that the cancer cells look similar to normal prostate cells (well differentiated). ? Lucrecia 7: This indicates that the cancer cells look somewhat similar to normal prostate cells (moderately differentiated). ? Lucrecia 8, 9, or 10: This indicates that the cancer cells look very different than normal prostate cells (poorly differentiated). How is this treated? Treatment for this condition depends on several factors, including the stage of the cancer, your age, personal preferences, and your overall health. Talk with your health care provider about treatment options that are recommended for you. Common treatments include: ? Observation for early stage prostate cancer (active surveillance). This involves having exams, blood tests, and in some cases, more biopsies. For some men, this is the only treatment needed. ? Surgery. Types of surgeries include: ? Open surgery (radical prostatectomy). In this surgery, a larger incision is made to remove the prostate. ? A laparoscopic radical prostatectomy. This is a surgery to remove the prostate and lymph nodes through several small incisions. It is often referred to as a minimally invasive surgery. ? A robotic radical prostatectomy. This is laparoscopic surgery to remove the prostate and lymph nodes with the help of robotic arms that are controlled by the surgeon. ? Cryoablation. This is surgery to freeze and destroy cancer cells. ? Radiation treatment. Types of radiation treatment include: ? External beam radiation. This type aims beams of radiation from outside the body at the prostate to destroy cancerous cells. ? Brachytherapy. This type uses radioactive needles, seeds, wires, or tubes that are implanted into the prostate gland. Like external be (more content not included)... Normal [facility] Urology Office/Clinic Noteon 04-17-2023 Urology Office/Clinic Note Chief Complaint rising PSA after treatment for malignant neoplasm of prostate HPI Staff Pt is here for 6 month f/u with PSA. Previous dx of rising PSA after treatment for malignant neoplasm of prostate, prostate cancer (Prostatectomy 2014 and EBRT 2017) and microhematuria. Current PSA done 04/12/23 is 0.14 and previous done 10/25/22 was 0.13. Dysuria: no Incomplete bladder emptying: no Hematuria: no Frequency: no Urgency: no Nocturia: 1x Stream: no straining or intermittency Leaking: no Post void dripping: no Wearing pads/ Depends: no Urge incontinence: no Stress incontinence: no Incontinence without Sensory Awareness: no Abdominal pain: no Flank pain: no Sexual complaints: no History of Present Illness Tests reviewed: reviewed UA, PSA I have reviewed the previous health record information and history for this patient from Dr. Scruggs. I have reviewed and verified the staff HPI to be accurate for this encounter. There have been no associated fever, chills, or flank pain. Denies any urinary infections since last encounter. Review of Systems PHQ Score Initial Depression Screen Score: 0 ROS - Provider Constitutional: denies weight loss, denies hot flashes. Eyes: denies eye problems. Gastrointestinal: denies nausea, denies vomiting. Cardiovascular: denies chest pain or angina. Integumentary: no dryness Musculoskeletal: denies musculoskeletal symptoms. ENMT: denies otolaryngeal symptoms. Respiratory: no shortness of breath. Heme/Lymph: denies easy bleeding tendency, denies easy bruising tendency. Psychiatric: no confusion, no anxiety. Genitourinary: See HPI. Physical Exam Vitals & Measurements HR: 62(Peripheral) RR: 16 BP: 130/68 HT: 66 in HT: 167 cm WT: 99 kg WT: 217.8 lb BMI: 35.5 General Appearance: alert, no distress, well nourished, well developed male. Genitourinary: normal scrotum, normal testes, normal urethra, normal epididymis, normal vas deferens/spermatic cord. Flank Pain: none. Bladder: nonpalpable. Assessment/Plan 1. Rising PSA following treatment for malignant neoplasm of prostate (R97.21: Rising PSA following treatment for malignant neoplasm of prostate) 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 Taking Xtandi 160mg QD and Xgeva q3m. PSA 10/25/21 - 2.64 (received Lupron at that time) 05/05/22 - 0.15 10/25/22 - 0.13 04/12/23 - 0.[address] Esqueda 02/02/23, agreed to administer Lupron if any significant changes occur. Has follow up w/ Dr. Esqueda next week. No Lupron given today due to psa stability. Follow up with PSA in 6 months (possible Lupron). All questions/concerns were discussed. Pt to call the office if he encounters any issues prior. Pt acknowledges understanding. 2. History of prostate cancer (Z85.46: Personal history of malignant neoplasm of prostate) S/P Prostatectomy 2014 & EBRT 2017. Pt currently on Xtandi oral medication and Xgeva q3 months. Will continue to monitor. 3. Microscopic hematuria (R31.29: Other microscopic hematuria) S/p Cysto 08/21/15. Chronic. UA today shows trace-lysed blood. Denies any visible blood or burning with urination. 4. History of kidney stones (Z87.442: Personal history of urinary calculi) Recent echo showed some stones bilat. Pt to get KUB now. Follow-up With When Contact Information KAEL JAMES, Anthony Lee, [facility] [address], [place] [address]- [phone] Additional Instructions: 6 mos w/ PSA (and possible Lupron) Patient Education Prostate Cancer I, Jeanine Crandall, personally scribed for Dr. Scruggs on 04/17/2023 09:25:04. . Documentation recorded by the scribe, Jeanine Crandall, accurately reflects the services(s) I performed and decisions made by me. Authenticated by Dr. Scruggs on 04/17/2023 09:28:31. Problem List/Past Medical History Ongoing CAD (coronary artery disease) History of kidney stones History of prostate cancer HTN (hypertension) Hyperlipidemia Microscopic hematuria Nocturia Prostate cancer Rising PSA following treatment for malignant neoplasm of prostate Historical No qualifying data Procedure/Surgical History External beam radiotherapy (03/30/2018), Cystoscopy (10/20/2015), Radical prostatectomy (11/05/2014), 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 Medications aspirin 81 mg oral tablet, Oral, Daily atorvastatin 40 mg Tab glimepiride, Oral, Daily hydrochlorothiazide-lisinop ril 12.5 mg-20 mg Tab, 1 tab(s), Oral, Daily metformin 1000 mg oral tablet, Oral, BID metoprolol 25 mg ER Tab, 25 mg= 1 tab(s), Oral, BID Vitamin D3 Xtandi 80 mg oral tablet, Oral, Daily Allergies penicillin G benzathine (Unknown) Social History Alcohol Current, 1-2 times per year, 02/04/2019 T (more content not included)... [facility] Comment on above: Result Comment: Elec tronically Signed By: Anthony SCRUGGS MD\.br\Date and Time Signed: 04/17/23 09:28 EDT\.br\Electronically Co-Signed By: Jeanine Cranadll\.br\Date and Time Co-Signed: 04/17/23 09:25 EDT Lab Report[facility] 04-12-2023 Lab Reports [id number]:127 [facility] CNPNon 02-06-2023 CNPN Telephone (RADTSA) PABLO FELIX ([id number]) 1945 M Date Time Provider Department 02/06/23 MARCO A ESQUEDA During your visit today, we recorded the following information about you: Josie Mehta RN 02/06/2023 10:23 AM Signed ----- Message from Marco A Esqueda MD sent at 02/05/2023 9:11 AM EDT ----- Please inform the patient that his PSA is stable. We will continue as planned and I will see him back in 3 months. We will then discuss if/when to resume Lupron, and if the patient prefers we can have it done at our office. Josie Mehat RN 02/06/2023 10:26 AM Signed Left detailed message with this information for patient. Josie Mehta RN Allergies As of Date: 02/06/2023 Noted Allergy Reaction PENICILLINS 08/06/2014 16 - Unknown SIMVASTATIN 07/05/2002 16 - Unknown Date Reviewed: 02/02/2023 Reviewed by: Katie Rosen MA - Fully Assessed Reason for Visit: Results [95] Prescriptions as of 02/06/2023 - Calcium Citrate-Vitamin D3 200 mg-6.25 mcg (250 unit) tab Take 2 tablets by mouth once daily. - metoprolol succinate ER (TOPROL XL) 25 mg 24 hr tablet Take by mouth. - Yyirlywqjztuj-Eduaolsv-Zbwj in (MULTIVITAMIN 50 PLUS) tab Take 1 tablet by mouth once daily. - enzalutamide (XTANDI) 80 mg tablet Take 2 tablets (160 mg) by mouth once daily. - GLIMEPIRIDE ORAL Take 0.5 mg by mouth once daily. - metFORMIN (GLUCOPHAGE) 1,000 mg tablet Take 1,000 mg by mouth once daily. - atorvastatin (LIPITOR) 40 mg tablet Take 40 mg by mouth once daily. - lisinopril-hydrochlorothiaz rosalee (PRINZIDE,ZESTORETIC) 20-12.5 mg per tablet Take 1 tablet by mouth once daily. - aspirin, enteric coated (ASPIRIN, ENTERIC COATED) 81 mg EC tablet Take 81 mg by mouth once daily. Problem List As Of Date 02/06/2023 Noted Resolved Malignant neoplasm of prostate (HCC) [C61] 08/06/2014 Encounter Status:Closed by JOSIE MEHTA on 02/06/23 Normal [facility] Consultation Noteon 02-07-20 Consultation Note [id number]:127 Normal [facility] CBC W Auto Differential pane l (Bld)on 02-02-2023 Basophils (Bld) [#/Vol] 0.03 10*3/uL Normal <0.11 [facility] Comment on above: Order Comment: Speci men Type: BLOOD SPECIMENOrdering Facility: [facility] Address: [address] [place] [id number] Performed By: #### 5 7021-8 ####[facility] LABCLIA [id number] [place] [address] Basophils/100 WBC (Bld) 0.4 % Normal [facility] Comment on above: Order Comment: Speci men Type: BLOOD SPECIMENOrdering Facility: [facility] Address: [address] [place] [address] Performed By: #### 5 7021-8 ####[facility] LABCLIA [id number] [place] [address] Differential cell count method Nom (Bld) Auto Normal [facility] Comment on above: Order Comment: Speci men Type: BLOOD SPECIMENOrdering Facility: [facility] Address: [address] [place] [address] Performed By: #### 5 7021-8 ####[facility] LABCLIA [id number] [place] [address] Eosinophils (Bld) [#/Vol] 0.42 10*3/uL Normal <0.46 [facility] Comment on above: Order Comment: Speci men Type: BLOOD SPECIMENOrdering Facility: [facility] Address: [address] [place] [address] Performed By: #### 5 7021-8 ####[facility] LABIA [id number] [place] [address] Eosinophils/100 WBC (Bld) 5.8 % Normal [facility] Comment on above: Order Comment: Speci men Type: BLOOD SPECIMENOrdering Facility: [facility] Address: [address] [place] [address] Performed By: #### 5 7021-8 ####[facility] LABCLIA [id number] [place] [address] Erythrocyte distribution width (RBC) [Ratio] 12.9 % Normal 11.5-15.0 [facility] Comment on above: Order Comment: Speci men Type: BLOOD SPECIMENOrdering Facility: [facility] Address: [address] [place] [address] Performed By: #### 5 7021-8 ####[facility] LABCLIA [id number] [place] [address] Hematocrit (Bld) [Volume fraction] 35.5 % Low 39.0-51.0 [facility] Comment on above: Order Comment: Speci men Type: BLOOD SPECIMENOrdering Facility: [facility] Address: [address] [place] [address] Performed By: #### 5 7021-8 ####[facility] LABCLIA [id number] [place] [address] Hemoglobin (Bld) [Mass/Vol] 12.0 g/dL Low 13.0-17.0 [facility] Comment on above: Order Comment: Speci men Type: BLOOD SPECIMENOrdering Facility: [facility] Address: [address] [place] [address] Performed By: #### 5 7021-8 ####[facility] LABCLIA [id number] [place] [address] Immature granulocytes (Bld) [#/Vol] 0.05 10*3/uL Normal <0.10 [facility] Comment on above: Order Comment: Speci men Type: BLOOD SPECIMENOrdering Facility: [facility] Address: [address] [place] [address] Performed By: #### 5 7021-8 ####[facility] LABCLIA [id number] [place] [address] Immature granulocytes/100 WBC (Bld) 0.7 % Normal [facility] Comment on above: Order Comment: Speci men Type: BLOOD SPECIMENOrdering Facility: [facility] Address: [address] [place] [address] Performed By: #### 5 7021-8 ####[facility] LABIA [id number] [place] [address] Lymphocytes (Bld) [#/Vol] 2.11 10*3/uL Normal 1.00-4.00 [facility] Comment on above: Order Comment: Speci men Type: BLOOD SPECIMENOrdering Facility: [facility] Address: [address] [address] Performed By: #### 5 7021-8 ####[facility] LABCLIA [id number] [place] [address] Lymphocytes/100 WBC (Bld) 29.0 % Normal [facility] Comment on above: Order Comment: Speci men Type: BLOOD SPECIMENOrdering Facility: [facility] Address: [address] [place] [address] Performed By: #### 5 7021-8 ####[facility] LABCLIA [id number] [place] [address] MCH (RBC) [Entitic mass] 32.3 pg Normal 26.0-34.0 [facility] Comment on above: Order Comment: Speci men Type: BLOOD SPECIMENOrdering Facility: [facility] Address: [address] [place] [address] Performed By: #### 5 7021-8 ####[facility] LABCLIA [id number] [place] [address] MCHC (RBC) [Mass/Vol] 33.8 g/dL Normal 30.5-36.0 [facility] Comment on above: Order Comment: Speci men Type: BLOOD SPECIMENOrdering Facility: [facility] Address: [address] [place] [address] Performed By: #### 5 7021-8 ####[facility] LABCLIA [id number] [place] [address] MCV (RBC) [Entitic vol] 95.4 fL Normal 80.0-100.0 [facility] Comment on above: Order Comment: Speci men Type: BLOOD SPECIMENOrdering Facility: [facility] Address: [address] [place] [address] Performed By: #### 5 7021-8 ####[facility] LABCLIA [id number] [place] [address] Monocytes (Bld) [#/Vol] 0.66 10*3/uL Normal <0.87 [facility] Comment on above: Order Comment: Speci men Type: BLOOD SPECIMENOrdering Facility: [facility] Address: [address] [address] Performed By: #### 5 7021-8 ####[facility] LABCLIA [id number] [place] [address] Monocytes/100 WBC (Bld) 9.1 % Normal [facility] Comment on above: Order Comment: Speci men Type: BLOOD SPECIMENOrdering Facility: [facility] Address: [address] [address] Performed By: #### 5 7021-8 ####[facility] LABCLIA [id number] [place] [address] Neutrophils (Bld) [#/Vol] 4.00 10*3/uL Normal 1.45-7.50 [facility] Comment on above: Order Comment: Speci men Type: BLOOD SPECIMENOrdering Facility: [facility] Address: [address] [address] Performed By: #### 5 7021-8 ####[facility] LABCLIA [id number] [place] [address] Neutrophils/100 WBC (Bld) 55.0 % Normal [facility] Comment on above: Order Comment: Speci men Type: BLOOD SPECIMENOrdering Facility: [facility] Address: [address] Performed By: #### 5 7021-8 ####[facility] LABCLIA [id number] [place] [address] Nucleated RBC (Bld) [#/Vol] 10*3/uL Normal <0.01 [facility] Comment on above: Order Comment: Speci men Type: BLOOD SPECIMENOrdering Facility: [facility] Address: [address] [place] [address] Performed By: #### 5 7021-8 ####[facility] LABCLIA [id number] [place] [address] Nucleated RBC/100 WBC (Bld) [Ratio] 0.0 /100 WBC Normal [facility] Comment on above: Order Comment: Speci men Type: BLOOD SPECIMENOrdering Facility: [facility] Address: [address] [place] [address] Performed By: #### 5 7021-8 ####[facility] LABCLIA [id number] [place] [address] Platelet mean volume (Bld) [Entitic vol] 10.1 fL Normal 9.0-12.7 [facility] Comment on above: Order Comment: Speci men Type: BLOOD SPECIMENOrdering Facility: [facility] Address: [address] [place] [address] Performed By: #### 5 7021-8 ####[facility] LABIA [id number] [place] [address] Platelets (Bld) [#/Vol] 197 10*3/uL Normal 150-400 [facility] Comment on above: Order Comment: Speci men Type: BLOOD SPECIMENOrdering Facility: [facility] Address: [address] [place] [address] Performed By: #### 5 7021-8 ####[facility] LABCLIA [id number] [place] [address] RBC (Bld) [#/Vol] 3.72 10*6/uL Low 4.20-6.00 [facility] Comment on above: Order Comment: Speci men Type: BLOOD SPECIMENOrdering Facility: [facility] Address: [address] [place] [address] Performed By: #### 5 7021-8 ####[facility] LABCLIA [id number] [place] [address] WBC (Bld) [#/Vol] 7.27 10*3/uL Normal 3.70-11.00 [facility] Comment on above: Order Comment: Speci men Type: BLOOD SPECIMENOrdering Facility: [facility] Address: [place] [address] Performed By: #### 5 7021-8 ####[facility] LABCLIA [id number] [place] [address] CNOVSPon 02-02-2023 CNOVSP Visit (SP) Office (H EMASA) PABLO FELIX ([id number]) 1945 M Date Time Provider Department 02/02/23 9:45 AM MARCO A ESQUEDA During your visit today, we recorded the following information about you: Temperature Pulse Respiration Blood pressure 97.2 degrees 50/minute 16/minute 131/43 Weight Height 96.6 kg 1.676 m Marco A Esqueda MD 02/05/2023 6:57 AM Signed PATIENT NAME: Pablo Felix DATE: 02/02/2023 PRIMARY CARE PHYSICIAN: Dr. Jamar Fall OTHER PHYSICIANS: Dr. Anthony Scruggs, Dr. Khan, [facility] Cardiology Portions of this encounter note have been copied from the note from 11/10/2022 and has been updated where appropriate, and reflect my current medical decision making from today. CC: This is a 77 year old male with metastatic prostate cancer, seen for scheduled follow-up and Xgeva. INTERIM HISTORY: Since the patient's last visit here he has had no significant medical changes. He remains on Xtandi 160 mg daily. He had been on Lupron every 6 months, but has injection scheduled for October [address] Scruggs. (Lupron last given March 2022). On follow-up today the patient does complain of occasional epigastric distress with nausea. No vomiting, abdominal pain, or change in bowel habits. He is eating well with no weight loss. Otherwise the patient feels well. No unusual bone pain. No difficulties with urination. MEDICATIONS: Current Outpatient Medications Medication Sig Calcium Citrate-Vitamin D3 200 mg-6.25 mcg (250 unit) tab Take 2 tablets by mouth once daily. metoprolol succinate ER (TOPROL XL) 25 mg 24 hr tablet Take by mouth. Fospmthynaxls-Rlybzhal-Ubny in (MULTIVITAMIN 50 PLUS) tab Take 1 tablet by mouth once daily. enzalutamide (XTANDI) 80 mg tablet Take 2 tablets (160 mg) by mouth once daily. GLIMEPIRIDE ORAL Take 0.5 mg by mouth once daily. metFORMIN (GLUCOPHAGE) 1,000 mg tablet Take 1,000 mg by mouth once daily. atorvastatin (LIPITOR) 40 mg tablet Take 40 mg by mouth once daily. lisinopril-hydrochlorothiaz rosalee (PRINZIDE,ZESTORETIC) 20-12.5 mg per tablet Take 1 tablet by mouth once daily. aspirin, enteric coated (ASPIRIN, ENTERIC COATED) 81 mg EC tablet Take 81 mg by mouth once daily. No current facility-administered medications for this visit. ALLERGIES: ALLERGIES Allergen Reactions Penicillins Unknown Simvastatin Unknown PAST MEDICAL HISTORY: PAST MEDICAL HISTORY Diagnosis Date CAD (coronary artery disease) Hypercholesterolemia on medication Hypertension on medication Nocturia Prostate CA (HCC) Rising PSA level 10/2021 PAST SURGICAL HISTORY: PAST SURGICAL HISTORY Procedure Laterality Date APPENDECTOMY CORONARY ARTERY BYPASS GRAFT FAMILY HISTORY: FAMILY HISTORY Problem Relation Age of Onset Cancer Mother Cancer SOCIAL HISTORY: Social History Tobacco Use Smoking status: Never Passive exposure: Never Smokeless tobacco: Never Vaping Use Vaping Use: Never used Substance Use Topics Alcohol use: Yes Comment: 1 day/wk Drug use: No REVIEW OF SYSTEMS: General: No weight loss, malaise or fevers. HEENT: Negative for frequent or significant headaches. No changes in hearing or vision, no nose bleeds or other nasal problems. Respiratory: Negative for cough, wheezing or shortness of breath. Cardiovascular: Negative for chest pain, leg swelling or palpitations. GI: Negative for abdominal discomfort, blood in stools or black stools or change in bowel habits. : No history of dysuria, frequency or incontinence. Musculoskeletal: Negative for: joint pain or swelling, back pain and muscle pain. Skin: Negative for lesions, rash and itching. Hematology/Lymphology: Negative for prolonged bleeding, bruising easily or swollen nodes. Neuro: No history of headaches, syncope, paralysis, seizures or tremors. PHYSICAL EXAM: BP (!) 131/43 Pulse (!) 50 Temp 36.2 ?C (97.2 ?F) (Temporal) Resp 16 Ht 167.6 cm (5' 5.98 ) Wt 96.6 kg (213 lb) SpO2 97% BMI 34.40 kg/m? ECOG 0 Exam limited to gross visualization where appropriate due to COVID-19. Gen.: This is an age-appropriate patient in no acute distress. Head: Appears atraumatic with no visible lesions. Eyes: Pupils equally round and reactive to light, extraocular muscles are intact. Neck: Supple. Mouth: Masked. Respiratory: Appears to be respiring comfortably. Neurologic: Nonfocal to gross visualization. Alert and oriented ?3. Psychiatric: No evidence of inappropriate anxiety or depression. Skin: Visible areas of skin without rash, lesions, wounds or petechiae. 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 Left base margin positive for neoplasm. Seminal vesicles with no diagnostic abnormality. (more content not included)... Normal [facility] Comprehensive metabolic 2000 panelon 02-02-2023 Albumin [Mass/Vol] 4.3 g/dL Normal 3.9-4.9 [facility] Comment on above: Order Comment: Speci men Type: BLOOD SPECIMENOrdering Facility: [facility] Address: [address] [place] [address] Performed By: #### 2 4323-8 ####[facility] LABCLIA [id number] [place] [address] ALP [Catalytic activity/Vol] 69 U/L Normal 38-113 [facility] Comment on above: Order Comment: Speci men Type: BLOOD SPECIMENOrdering Facility: [facility] Address: [address] [address] Performed By: #### 2 4323-8 ####[facility] LABCLIA [id number] [place] [address] ALT [Catalytic activity/Vol] 18 U/L Normal 10-54 [facility] Comment on above: Order Comment: Speci men Type: BLOOD SPECIMENOrdering Facility: [facility] Address: [address] [address] Performed By: #### 2 4323-8 ####[facility] LABCLIA [id number] [place] [address] Anion gap [Moles/Vol] 8 mmol/L Low 9-18 [facility] Comment on above: Order Comment: Speci men Type: BLOOD SPECIMENOrdering Facility: [facility] Address: [address] [address] Performed By: #### 2 4323-8 ####[facility] LABCLIA [id number] [place] [address] AST [Catalytic activity/Vol] 18 U/L Normal 14-40 [facility] [facility] Comment on above: Order Comment: Speci men Type: BLOOD SPECIMENOrdering Facility: [facility] Address: [address] [address] Performed By: #### 2 4323-8 ####[facility] LABCLIA [id number] [place] [address] Bilirubin [Mass/Vol] 0.7 mg/dL Normal 0.2-1.3 [facility] Comment on above: Order Comment: Speci men Type: BLOOD SPECIMENOrdering Facility: [facility] Address: [address] [address] Performed By: #### 2 4323-8 ####[facility] LABCLIA [id number] [place] [address] Calcium [Mass/Vol] 9.8 mg/dL Normal 8.5-10.2 [facility] Comment on above: Order Comment: Speci men Type: BLOOD SPECIMENOrdering Facility: [facility] Address: [address] [place] [address] Performed By: #### 2 4323-8 ####[facility] LABCLIA [id number] [place] [address] Chloride [Moles/Vol] 102 mmol/L Normal 97-105 [facility] Comment on above: Order Comment: Speci men Type: BLOOD SPECIMENOrdering Facility: [facility] Address: [address] [place] [address] Performed By: #### 2 4323-8 ####[facility] LABCLIA [id number] [place] [address] CO2 [Moles/Vol] 27 mmol/L Normal 22-30 [facility] Comment on above: Order Comment: Speci men Type: BLOOD SPECIMENOrdering Facility: [facility] Address: [address] [place] [address] Performed By: #### 2 4323-8 ####[facility] LABCLIA [id number] [place] [address] Creatinine [Mass/Vol] 0.84 mg/dL Normal 0.73-1.22 [facility] Comment on above: Order Comment: Speci men Type: BLOOD SPECIMENOrdering Facility: [facility] Address: [address] [place] [address] Performed By: #### 2 4323-8 ####[facility] LABCLIA [id number] [place] [address] ESTIMATED GLOMERULAR FILTRATION RATE 90 mL/min/1.73m??? Normal >=60 [facility] Comment on above: Order Comment: Speci men Type: BLOOD SPECIMENOrdering Facility: [facility] Address: [address] [place] [address] Result Comment: Renae mated Glomerular Filtration Rate (eGFR) is calculated using the 2020 CKD-EPI creatinine equation. This equation utilizes serum creatinine, sex, and age as parameters. The creatinine assay has traceable calibration to isotope dilution-mass spectrometry. Refer to KDIGO guidelines for clinical interpretation. In patients with unstable renal function, e.g. those with acute kidney injury, the eGFR may not accurately reflect actual GFR. Performed By: #### 2 4323-8 ####[facility] LABCLIA [id number] [place] [address] Glucose [Mass/Vol] 119 mg/dL High 74-99 [facility] Comment on above: Order Comment: Speci men Type: BLOOD SPECIMENOrdering Facility: [facility] Address: [address] [place] [address] Result Comment: The [place] Diabetes Association (ADA) provides guidance for cutoff values for fasting glucose and random glucose. The ADA defines fasting as no caloric intake for at least 8 hours. Fasting plasma glucose results between 100 to 125 mg/dL indicate increased risk for diabetes (prediabetes). Fasting plasma glucose results greater than or equal to 126 mg/dL meet the criteria for diagnosis of diabetes. In the absence of unequivocal hyperglycemia, results should be confirmed by repeat testing. In a patient with classic symptoms of hyperglycemia or hyperglycemic crisis, random plasma glucose results greater than or equal to 200 mg/dL meet the criteria for diagnosis of diabetes. Reference: Standards of Medical Care in Diabetes 2016, [place] [employer] Association. Diabetes Care. 2016.39(Suppl 1). Performed By: #### 2 4323-8 ####[facility] LABCLIA [id number] [place] [address] Potassium [Moles/Vol] 4.5 mmol/L Normal 3.7-5.1 [facility] Comment on above: Order Comment: Speci men Type: BLOOD SPECIMENOrdering Facility: [facility] Address: [address] [address] Performed By: #### 2 4323-8 ####[facility] LABCLIA [id number] [place] [address] Protein [Mass/Vol] 6.7 g/dL Normal 6.3-8.0 [facility] Comment on above: Order Comment: Speci men Type: BLOOD SPECIMENOrdering Facility: [facility] Address: [address] [place] [address] Performed By: #### 2 4323-8 ####[facility] LABCLIA [id number] [place] [address] Sodium [Moles/Vol] 137 mmol/L Normal 136-144 [facility] Comment on above: Order Comment: Speci men Type: BLOOD SPECIMENOrdering Facility: [facility] Address: [address] [place] [address] Performed By: #### 2 4323-8 ####[facility] LABCLIA [id number] [place] [address] Urea nitrogen [Mass/Vol] 16 mg/dL Normal 9-24 [facility] Comment on above: Order Comment: Speci men Type: BLOOD SPECIMENOrdering Facility: [facility] Address: [address] [place] [address] Performed By: #### 2 4323-8 ####[facility] LABCLIA [id number] [place] [id number] PSA [facility] 02-02-2023 Prostate specific Ag [Mass/Vol] 0.09 ng/mL Normal <2.60 [facility] Comment on above: Order Comment: Speci men Type: BLOOD SPECIMENOrdering Facility: [facility] Address: [address] [place] [address] Result Comment: Tota l PSA test methodology used is the Electrochemiluminescence Immunoassay by [employer]. Total PSA values by differing methodologies cannot be interchanged. Performed By: #### 2 857-1 ####[facility] LABCLIA [id number] [place] [address] [place] CBC W Auto Differential pane l (Bld)on 11-10-2022 Basophils (Bld) [#/Vol] 0.03 10*3/uL Normal <0.11 [facility] Comment on above: Order Comment: Speci men Type: BLOOD SPECIMENOrdering Facility: [facility] Address: [address] [place] [address] Performed By: #### 5 7021-8 ####[facility] LABCLIA [id number] [place] [address] Basophils/100 WBC (Bld) 0.4 % Normal [facility] Comment on above: Order Comment: Speci men Type: BLOOD SPECIMENOrdering Facility: [facility] Address: [address] [place] [address] Performed By: #### 5 7021-8 ####[facility] LABCLIA [id number] [place] [address] Differential cell count method Nom (Bld) Auto Normal [facility] Comment on above: Order Comment: Speci men Type: BLOOD SPECIMENOrdering Facility: [facility] Address: [address] [place] [address] Performed By: #### 5 7021-8 ####[facility] LABCLIA [id number] [place] [address] Eosinophils (Bld) [#/Vol] 0.36 10*3/uL Normal <0.46 [facility] Comment on above: Order Comment: Speci men Type: BLOOD SPECIMENOrdering Facility: [facility] Address: [address] [place] [address] Performed By: #### 5 7021-8 ####[facility] LABCLIA [id number] [place] [address] Eosinophils/100 WBC (Bld) 4.7 % Normal [facility] Comment on above: Order Comment: Speci men Type: BLOOD SPECIMENOrdering Facility: [facility] Address: [address] [address] Performed By: #### 5 7021-8 ####[facility] LABCLIA [id number] [place] [address] Erythrocyte distribution width (RBC) [Ratio] 13.3 % Normal 11.5-15.0 [facility] Comment on above: Order Comment: Speci men Type: BLOOD SPECIMENOrdering Facility: [facility] Address: [address] [place] [address] Performed By: #### 5 7021-8 ####[facility] LABCLIA [id number] [place] [address] Hematocrit (Bld) [Volume fraction] 36.4 % Low 39.0-51.0 [facility] Comment on above: Order Comment: Speci men Type: BLOOD SPECIMENOrdering Facility: [facility] Address: [address] [place] [address] Performed By: #### 5 7021-8 ####[facility] LABCLIA [id number] [place] [address] Hemoglobin (Bld) [Mass/Vol] 12.3 g/dL Low 13.0-17.0 [facility] Comment on above: Order Comment: Speci men Type: BLOOD SPECIMENOrdering Facility: [facility] Address: [address] [place] [address] Performed By: #### 5 7021-8 ####[facility] LABCLIA [id number] [place] [address] Immature granulocytes (Bld) [#/Vol] 0.05 10*3/uL Normal <0.10 [facility] Comment on above: Order Comment: Speci men Type: BLOOD SPECIMENOrdering Facility: [facility] Address: [address] [place] [address] Performed By: #### 5 7021-8 ####[facility] LABCLIA [id number] [place] [address] Immature granulocytes/100 WBC (Bld) 0.6 % Normal [facility] Comment on above: Order Comment: Speci men Type: BLOOD SPECIMENOrdering Facility: [facility] Address: [address] [place], [place] [address] Performed By: #### 5 7021-8 ####[facility] LABCLIA [id number] [place] [address] Lymphocytes (Bld) [#/Vol] 1.99 10*3/uL Normal 1.00-4.00 [facility] Comment on above: Order Comment: Speci men Type: BLOOD SPECIMENOrdering Facility: [facility] Address: [address] [place] [address] Performed By: #### 5 7021-8 ####[facility] LABCLIA [id number] [place] [address] Lymphocytes/100 WBC (Bld) 25.7 % Normal [facility] Comment on above: Order Comment: Speci men Type: BLOOD SPECIMENOrdering Facility: [facility] Address: [address] [place] [address] Performed By: #### 5 7021-8 ####[facility] LABCLIA [id number] [place] [address] MCH (RBC) [Entitic mass] 31.9 pg Normal 26.0-34.0 [facility] Comment on above: Order Comment: Speci men Type: BLOOD SPECIMENOrdering Facility: [facility] Address: [address] [place] [address] Performed By: #### 5 7021-8 ####[facility] LABCLIA [id number] [place] [address] MCHC (RBC) [Mass/Vol] 33.8 g/dL Normal 30.5-36.0 [facility] Comment on above: Order Comment: Speci men Type: BLOOD SPECIMENOrdering Facility: [facility] Address: [address] [place] [address] Performed By: #### 5 7021-8 ####[facility] LABCLIA [id number] [place] [address] MCV (RBC) [Entitic vol] 94.5 fL Normal 80.0-100.0 [facility] Comment on above: Order Comment: Speci men Type: BLOOD SPECIMENOrdering Facility: [facility] Address: [address] [place] [address] Performed By: #### 5 7021-8 ####[facility] LABCLIA [id number] [place] [address] Monocytes (Bld) [#/Vol] 0.63 10*3/uL Normal <0.87 [facility] Comment on above: Order Comment: Speci men Type: BLOOD SPECIMENOrdering Facility: [facility] Address: [address] [place] [address] Performed By: #### 5 7021-8 ####[facility] LABCLIA [id number] [place] [address] Monocytes/100 WBC (Bld) 8.2 % Normal [facility] Comment on above: Order Comment: Speci men Type: BLOOD SPECIMENOrdering Facility: [facility] Address: [address] [place] [address] Performed By: #### 5 7021-8 ####[facility] LABCLIA [id number] [place] [address] Neutrophils (Bld) [#/Vol] 4.67 10*3/uL Normal 1.45-7.50 [facility] Comment on above: Order Comment: Speci men Type: BLOOD SPECIMENOrdering Facility: [facility] Address: [address] [place] [address] Performed By: #### 5 7021-8 ####[facility] LABCLIA [id number] [place] [address] Neutrophils/100 WBC (Bld) 60.4 % Normal [facility] Comment on above: Order Comment: Speci men Type: BLOOD SPECIMENOrdering Facility: [facility] Address: [address] [place] [address] Performed By: #### 5 7021-8 ####[facility] LABCLIA [id number] [place] [address] Nucleated RBC (Bld) [#/Vol] 10*3/uL Normal <0.01 [facility] Comment on above: Order Comment: Speci men Type: BLOOD SPECIMENOrdering Facility: [facility] Address: [address] [address] Performed By: #### 5 7021-8 ####[facility] LABCLIA [id number] [place] [address] Nucleated RBC/100 WBC (Bld) [Ratio] 0.0 /100 WBC Normal [facility] Comment on above: Order Comment: Speci men Type: BLOOD SPECIMENOrdering Facility: [facility] Address: [address] [place] [address] Performed By: #### 5 7021-8 ####[facility] LABCLIA [id number] [place] [address] Platelet mean volume (Bld) [Entitic vol] 9.9 fL Normal 9.0-12.7 [facility] Comment on above: Order Comment: Speci men Type: BLOOD SPECIMENOrdering Facility: [facility] Address: [address] [place] [address] Performed By: #### 5 7021-8 ####[facility] LABCLIA [id number] [place] [address] Platelets (Bld) [#/Vol] 206 10*3/uL Normal 150-400 [facility] Comment on above: Order Comment: Speci men Type: BLOOD SPECIMENOrdering Facility: [facility] Address: [address] [address] Performed By: #### 5 7021-8 ####[facility] LABCLIA [id number] [place] [address] RBC (Bld) [#/Vol] 3.85 10*6/uL Low 4.20-6.00 [facility] Comment on above: Order Comment: Speci men Type: BLOOD SPECIMENOrdering Facility: [facility] Address: [address] [place] [address] Performed By: #### 5 7021-8 ####[facility] LABCLIA [id number] [place] [address] WBC (Bld) [#/Vol] 7.73 10*3/uL Normal 3.70-11.00 [facility] Comment on above: Order Comment: Speci men Type: BLOOD SPECIMENOrdering Facility: [facility] Address: [address] [place] [address] [place] [address] Performed By: #### 5 7021-8 ####[facility] LABCLIA [id number] [place] [address] CNOVSPon 11-10-2022 CNOVSP Visit (SP) Office (H EMASA) PABLO FELIX ([id number]) 1945 M Date Time Provider Department 11/10/22 10:00 AM CHRISTO HOWARD During your visit today, we recorded the following information about you: Temperature Pulse Respiration Blood pressure 97.1 degrees 54/minute 16/minute 134/68 Weight Height 96.4 kg 1.676 m Christo Howard APRN.CNP 11/10/2022 11:21 AM Signed PATIENT NAME: Pablo Felix DATE: 11/10/2022 PRIMARY CARE PHYSICIAN: Dr. Jamar Fall OTHER PHYSICIANS: Dr. Anthony Scruggs, Dr. Khan, [facility] Cardiology Portions of this encounter note have been copied from Marco A Esqueda MD note from 08/11/2022 and has been updated where appropriate, and reflect my current medical decision making from today. CC: This is a 77 year old male with metastatic prostate cancer, seen for scheduled follow-up and Xgeva. INTERIM HISTORY: Pablo Felix returns for follow-up. He remains on Xtandi 160 mg daily which she takes after supper. He is tolerating the Xtandi without any significant side effects. He saw Dr. Scruggs and because his last PSA on 10/25/[address] Scruggs elected to hold the Lupron. Dr. Scruggs will see the patient back in 6 months and revisit whether to continue to hold or resume the Lupron based on his PSA. Was he has diarrhea which she takes a half of an Imodium pill with lunch which takes care of the diarrhea. He denies any unusual pain including bone pain. He has chronic arthritic pain. He denies fevers, chills, night sweats and signs/symptoms of infection. He denies bleeding and abnormal bruising. He has no problems with urination. He denies pain, burning and difficulty with urination. MEDICATIONS: Current Outpatient Medications Medication Sig Calcium Citrate-Vitamin D3 200 mg-6.25 mcg (250 unit) tab Take 2 tablets by mouth once daily. metoprolol succinate ER (TOPROL XL) 25 mg 24 hr tablet Take by mouth. Tpjbauhmdamxp-Ycqsbtep-Lrwu in (MULTIVITAMIN 50 PLUS) tab Take 1 tablet by mouth once daily. enzalutamide (XTANDI) 80 mg tablet Take 2 tablets (160 mg) by mouth once daily. GLIMEPIRIDE ORAL Take 0.5 mg by mouth once daily. metFORMIN (GLUCOPHAGE) 1,000 mg tablet Take 1,000 mg by mouth once daily. atorvastatin (LIPITOR) 40 mg tablet Take 40 mg by mouth once daily. lisinopril-hydrochlorothiaz rosalee (PRINZIDE,ZESTORETIC) 20-12.5 mg per tablet Take 1 tablet by mouth once daily. aspirin, enteric coated (ASPIRIN, ENTERIC COATED) 81 mg EC tablet Take 81 mg by mouth once daily. No current facility-administered medications for this visit. ALLERGIES: ALLERGIES Allergen Reactions Penicillins Unknown Simvastatin Unknown PAST MEDICAL HISTORY: PAST MEDICAL HISTORY Diagnosis Date CAD (coronary artery disease) Hypercholesterolemia on medication Hypertension on medication Nocturia Prostate CA (HCC) Rising PSA level 10/2021 PAST SURGICAL HISTORY: PAST SURGICAL HISTORY Procedure Laterality Date APPENDECTOMY CORONARY ARTERY BYPASS GRAFT FAMILY HISTORY: FAMILY HISTORY Problem Relation Age of Onset Cancer Mother Cancer SOCIAL HISTORY: Social History Tobacco Use Smoking status: Never Passive exposure: Never Smokeless tobacco: Never Vaping Use Vaping Use: Never used Substance Use Topics Alcohol use: Yes Comment: 1 day/wk Drug use: No REVIEW OF SYSTEMS: General: No weight loss, malaise or fevers. HEENT: Negative for frequent or significant headaches. No changes in hearing or vision, no nose bleeds or other nasal problems. Respiratory: Negative for cough, wheezing or shortness of breath. Cardiovascular: Negative for chest pain, leg swelling or palpitations. GI: Negative for abdominal discomfort, blood in stools or black stools or change in bowel habits. : No history of dysuria, frequency or incontinence. Musculoskeletal: Negative for: joint pain or swelling, back pain and muscle pain. Skin: Negative for lesions, rash and itching. Hematology/Lymphology: Negative for prolonged bleeding, bruising easily or swollen nodes. Neuro: No history of headaches, syncope, paralysis, seizures or tremors. PHYSICAL EXAM: BP 134/68 Pulse (!) 54 Temp 36.2 ?C (97.1 ?F) (Temporal) Resp 16 Ht 167.6 cm (5' 5.98 ) Wt 96.4 kg (212 lb 9.6 oz) SpO2 98% BMI 34.33 kg/m? ECOG 0 Exam limited to gross visualization where appropriate due to COVID-19. Gen.: This is an age-appropriate patient in no acute distress. Head: Appears atraumatic with no visible lesions. Eyes: Pupils equally round and reactive to light, extraocular muscles are intact. Neck: Supple. Mouth: Masked. Respiratory: Appears to be respiring comfortably. Neurologic: Nonfocal to gross visualization. Alert and oriented ?3. Psychiatric: No evidence of inappropriate anxiety or depression. Skin: Visible areas of skin without rash, lesions, wounds or pet (more content not included)... Normal [facility] Comprehensive metabolic 2000 panelon 11-10-2022 Albumin [Mass/Vol] 4.1 g/dL Normal 3.9-4.9 [facility] Comment on above: Order Comment: Nicanor camilo Type: BLOOD SPECIMENOrdering Facility: [facility] Address: [address] [place] [address] Performed By: #### 2 4323-8 ####[facility] LABCLIA [id number] [place] [address] ALP [Catalytic activity/Vol] 72 U/L Normal 38-113 [facility] Comment on above: Order Comment: Speci men Type: BLOOD SPECIMENOrdering Facility: [facility] Address: [address] [address] Performed By: #### 2 4323-8 ####[facility] LABCLIA [id number] [place] [address] ALT [Catalytic activity/Vol] 20 U/L Normal 10-54 [facility] Comment on above: Order Comment: Speci men Type: BLOOD SPECIMENOrdering Facility: [facility] Address: [address] [address] Performed By: #### 2 4323-8 ####[facility] LABCLIA [id number] [place] [address] Anion gap [Moles/Vol] 7 mmol/L Low 9-18 [facility] Comment on above: Order Comment: Speci men Type: BLOOD SPECIMENOrdering Facility: [facility] Address: [address] [place] [address] Performed By: #### 2 4323-8 ####[facility] LABCLIA [id number] [place] [address] AST [Catalytic activity/Vol] 18 U/L Normal 14-40 [facility] Comment on above: Order Comment: Speci men Type: BLOOD SPECIMENOrdering Facility: [facility] Address: [address] [place] [address] Performed By: #### 2 4323-8 ####[facility] LABCLIA [id number] [place] [address] Bilirubin [Mass/Vol] 0.5 mg/dL Normal 0.2-1.3 [facility] Comment on above: Order Comment: Speci men Type: BLOOD SPECIMENOrdering Facility: [facility] Address: [address] [place] [address] Performed By: #### 2 4323-8 ####[facility] LABCLIA [id number] [place] [address] Calcium [Mass/Vol] 9.5 mg/dL Normal 8.5-10.2 [facility] Comment on above: Order Comment: Speci men Type: BLOOD SPECIMENOrdering Facility: [facility] Address: [address] [place] [address] Performed By: #### 2 4323-8 ####[facility] LABCLIA [id number] [place] [address] Chloride [Moles/Vol] 101 mmol/L Normal 97-105 [facility] Comment on above: Order Comment: Speci men Type: BLOOD SPECIMENOrdering Facility: [facility] Address: [address] [place] [address] Performed By: #### 2 4323-8 ####[facility] LABCLIA [id number] [place] [address] CO2 [Moles/Vol] 28 mmol/L Normal 22-30 [facility] Comment on above: Order Comment: Speci men Type: BLOOD SPECIMENOrdering Facility: [facility] Address: [address] [place] [address] Performed By: #### 2 4323-8 ####[facility] LABCLIA [id number] [place] [address] Creatinine [Mass/Vol] 0.85 mg/dL Normal 0.73-1.22 [facility] Comment on above: Order Comment: Speci men Type: BLOOD SPECIMENOrdering Facility: [facility] Address: [address] [place] [address] Performed By: #### 2 4323-8 ####[facility] LABCLIA [id number] [place] [address] ESTIMATED GLOMERULAR FILTRATION RATE 90 mL/min/1.73m??? Normal >=60 [facility] Comment on above: Order Comment: Speci men Type: BLOOD SPECIMENOrdering Facility: [facility] Address: [address] [place] [address] Result Comment: Renae mated Glomerular Filtration Rate (eGFR) is calculated using the 2020 CKD-EPI creatinine equation. This equation utilizes serum creatinine, sex, and age as parameters. The creatinine assay has traceable calibration to isotope dilution-mass spectrometry. Refer to KDIGO guidelines for clinical interpretation. In patients with unstable renal function, e.g. those with acute kidney injury, the eGFR may not accurately reflect actual GFR. Performed By: #### 2 4323-8 ####[facility] LABCLIA [id number] [place] [address] Glucose [Mass/Vol] 121 mg/dL High 74-99 [facility] Comment on above: Order Comment: Speci ton Type: BLOOD SPECIMENOrdering Facility: [facility] Address: [address] [place] [address] Result Comment: The [place] Diabetes Association (ADA) provides guidance for cutoff values for fasting glucose and random glucose. The ADA defines fasting as no caloric intake for at least 8 hours. Fasting plasma glucose results between 100 to 125 mg/dL indicate increased risk for diabetes (prediabetes). Fasting plasma glucose results greater than or equal to 126 mg/dL meet the criteria for diagnosis of diabetes. In the absence of unequivocal hyperglycemia, results should be confirmed by repeat testing. In a patient with classic symptoms of hyperglycemia or hyperglycemic crisis, random plasma glucose results greater than or equal to 200 mg/dL meet the criteria for diagnosis of diabetes. Reference: Standards of Medical Care in Diabetes 2016, [place] [employer]. Diabetes Care. 2016.39(Suppl 1). Performed By: #### 2 4323-8 ####[facility] LABCLIA [id number] [place] [address] Potassium [Moles/Vol] 4.8 mmol/L Normal 3.7-5.1 [facility] Comment on above: Order Comment: Specgarett camilo Type: BLOOD SPECIMENOrdering Facility: [facility] Address: [place] [address] Performed By: #### 2 4323-8 ####[facility] LABCLIA [id number] [place] [address] Protein [Mass/Vol] 6.5 g/dL Normal 6.3-8.0 [facility] Comment on above: Order Comment: Speci men Type: BLOOD SPECIMENOrdering Facility: [facility] Address: [address] [address] Performed By: #### 2 4323-8 ####[facility] LABCLIA [id number] [place] [address] Sodium [Moles/Vol] 136 mmol/L Normal 136-144 [facility] Comment on above: Order Comment: Speci men Type: BLOOD SPECIMENOrdering Facility: [facility] Address: [address] [address] Performed By: #### 2 4323-8 ####[facility] LABCLIA [id number] [place] [address] Urea nitrogen [Mass/Vol] 14 mg/dL Normal 9-24 [facility] Comment on above: Order Comment: Speci men Type: BLOOD SPECIMENOrdering Facility: [facility] Address: [address] [address] Performed By: #### 2 4323-8 ####[facility] LABCLIA [id number] [place] [address] Consultation Noteon 11-11-19 23 Consultation Note [id number]#[id number]:127 Normal [facility] Prostate specific Ag [Mass/Vol] 0.10 ng/mL Normal <2.60 [facility] Comment on above: Order Comment: Speci men Type: BLOOD SPECIMENOrdering Facility: [facility] Address: [address] [address] Result Comment: Tota l PSA test methodology used is the Electrochemiluminescence Immunoassay by [employer]. Total PSA values by differing methodologies cannot be interchanged. Performed By: #### 2 857-1 ####[facility] LABCLIA [id number] [facility] [id number] [address] [place] CNPNon 11-01-2022 CNPN Telephone (HEMASA) PABLO FELIX Jessica ([id number]) 1945 M Date Time Provider Department 11/01/22 CHRISTO HOWARD During your visit today, we recorded the following information about you: Sheela Tnoey 11/01/2022 10:50 AM Addendum Patient coming in on 11/10/22 for follow up treatment. Please add lab orders. Thanks. Sheela Toney MA Allergies As of Date: 11/01/2022 Noted Allergy Reaction PENICILLINS 08/06/2014 16 - Unknown SIMVASTATIN 07/05/2002 16 - Unknown Date Reviewed: 08/11/2022 Reviewed by: Katie Rosen MA - Fully Assessed Reason for Visit: Lab Orders [1688] Primary Visit Diagnosis:Malignant neoplasm of prostate (HCC) [C61] Order(s):CBC + DIFF [SQCBCDIF] Order #: [id number] FUTURE COMP METABOLIC PANEL [SQCMP] Order #: [id number] FUTURE PSA/PROSTSPECAG DIAG [SQPSA] Order #: [id number] FUTURE Prescriptions as of 11/01/2022 - Calcium Citrate-Vitamin D3 200 mg-6.25 mcg (250 unit) tab Take 2 tablets by mouth once daily. - metoprolol succinate ER (TOPROL XL) 25 mg 24 hr tablet Take by mouth. - Aoxxkujdlzsbf-Jyzezrkh-Xfyg in (MULTIVITAMIN 50 PLUS) tab Take 1 tablet by mouth once daily. - enzalutamide (XTANDI) 80 mg tablet Take 2 tablets (160 mg) by mouth once daily. - GLIMEPIRIDE ORAL Take 0.5 mg by mouth once daily. - metFORMIN (GLUCOPHAGE) 1,000 mg tablet Take 1,000 mg by mouth once daily. - atorvastatin (LIPITOR) 40 mg tablet Take 40 mg by mouth once daily. - lisinopril-hydrochlorothiaz rosalee (PRINZIDE,ZESTORETIC) 20-12.5 mg per tablet Take 1 tablet by mouth once daily. - aspirin, enteric coated (ASPIRIN, ENTERIC COATED) 81 mg EC tablet Take 81 mg by mouth once daily. Problem List As Of Date 11/01/2022 Noted Resolved Malignant neoplasm of prostate (HCC) [C61] 08/06/2014 Encounter Status:Closed by MARCO A ESQUEDA on 11/01/22 [facility] Lab Reportson 10-31-2022 Lab Reports [id number]#[id number]:127 [facility] Ambulatory Visit Summaryon 0 10-28-2022 Ambulatory Visit Summary PABLO FELIX :1945 Visit Date:12/24/2018 Ambulatory Visit Instructions Your Care Team Primary Care Physician - JUAN DAVID SEGUNDO, JAMAR This Is Your Medications List aspirin (aspirin 81 mg oral tablet) atorvastatin (atorvastatin 20 mg Tab) cholecalciferol (Vitamin D3) enzalutamide (Xtandi 80 mg oral tablet) glimepiride hydrochlorothiazide-lisinop ril (hydrochlorothiazide-lisino pril 12.5 mg-20 mg Tab) metformin (metformin 1000 mg oral tablet) metoprolol (metoprolol 25 mg ER Tab) [Image Removed: STOP]Stop taking these medications leuprolide (Lupron Depot 45 mg/6 months intramuscular injection, extended release) Procedures Performed External beam radiotherapy (03/30/2018), Cystoscopy (10/20/2015), Radical prostatectomy (11/05/2014), 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 What to do next Scheduled Follow-Up Appointments Monday 8:45 AM EDT With: KAEL JAMES, Anthony Lee Where: [facility] Patient Educationon 10-29-19 23 Patient Education Oncology Prostate Cancer Screening The prostate is a walnut-sized gland that is located below the bladder and in front of the rectum in males. The function of the prostate (prostate gland) is to add fluid to semen during ejaculation. Prostate cancer is the second most common type of cancer in men. A screening test for cancer is a test that is done before cancer symptoms start. Screening can help to identify cancer at an early stage, when the cancer can be treated more easily. The recommended prostate cancer screening test is a blood test called the prostate-specific antigen (PSA) test. PSA is a protein that is made in the prostate. As you age, your prostate naturally produces more PSA. Abnormally high PSA levels may be caused by: ? Prostate cancer. ? An enlarged prostate that is not caused by cancer (benign prostatic hyperplasia, BPH). This condition is very common in older men. ? A prostate gland infection (prostatitis). ? Medicines to assist with hair growth, such as finasteride. Depending on the PSA results, you may need more tests, such as: ? A physical exam to check the size of your prostate gland. ? Blood and imaging tests. ? A procedure to remove tissue samples from your prostate gland for testing (biopsy). Who should have screening? Screening recommendations vary based on age. ? If you are younger than age 40, screening is not recommended. ? If you are age 40?54 and you have no risk factors, screening is not recommended. ? If you are younger than age 55, ask your health care provider if you need screening if you have one of these risk factors: ? Being of -[place] descent. ? Having a family history of prostate cancer. ? If you are age 55?69, talk with your health care provider about your need for screening and how often screening should be done. ? If you are older than age 70, screening is not recommended. This is because the risks that screening can cause are greater than the benefits that it may provide (risks outweigh the benefits). If you are at high risk for prostate cancer, your health care provider may recommend that you have screenings more often or start screening at a younger age. You may be at high risk if you: ? Are older than age 55. ? Are -[place]. ? Have a father, brother, or uncle who has been diagnosed with prostate cancer. The risk may be higher if your family member's cancer occurred at an early age. What are the benefits of screening? There is a small chance that screening may lower your risk of dying from prostate cancer. The chance is small because prostate cancer is typically a slow-growing cancer, and most men with prostate cancer from a different cause. What are the risks of screening? The main risk of prostate cancer screening is diagnosing and treating prostate cancer that would never have caused any symptoms or problems (overdiagnosis and overtreatment). PSA screening cannot tell you if your PSA is high due to cancer or a different cause. A prostate biopsy is the only procedure to diagnose prostate cancer. Even the results of a biopsy may not tell you if your cancer needs to be treated. Slow-growing prostate cancer may not need any treatment other than monitoring, so diagnosing and treating it may cause unnecessary stress or other side effects. A prostate biopsy may also cause: ? Infection or fever. ? A false negative. This is a result that shows that you do not have prostate cancer when you actually do have prostate cancer. Questions to ask your health care provider ? When should I start prostate cancer screening? ? What is my risk for prostate cancer? ? How often do I need screening? ? What type of screening tests do I need? ? How do I get my test results? ? What do my results mean? ? Do I need treatment? Contact a health care provider if: ? You have difficulty urinating. ? You have pain when you urinate or ejaculate. ? You have blood in your urine or semen. ? You have pain in your back or in the area of your prostate. ? You have trouble getting or maintaining an erection (erectile dysfunction, ED). Summary ? Prostate cancer is a common type of cancer in men. The prostate (prostate gland) is located below the bladder and in front of the rectum. This gland adds fluid to semen during ejaculation. ? Prostate cancer screening may identify cancer at an early stage, when the cancer can be treated more easily. ? The prostate-specific antigen (PSA) test is the recommended screening test for prostate cancer. ? Discuss the risks and benefits of prostate cancer screening with your health care provider. If you are age 70 or older, screening is likely to lead to more risks than benefits (risks outweigh the benefits). This information is not intended to replace advice given to you by your health care provider. Make sure you discuss any questions you have with your health care provider. Document Released: 04/13/2018 Document R (more content not included)... Normal [facility] Urology Office/Clinic Noteon 10-28-2022 Urology Office/Clinic Note Chief Complaint rising PSA following treatment for malignant neoplasm of the prostate HPI Staff 6m PSA due to Prostate Cancer & Rising PSA following Prostate Cancer Tx. S/P Prostatectomy done in 2014 & EBRT done in 2018. Possible Lupron today (Per previous auth request Medicare does not require auth) Last Lupron given 05/13/22. PSA done 10/25/22- 0.13 *No Urology Medications. Last seen by Dr Esqueda 08/12/22. Per note, plan is for pt to return to his office in 3m to monitor PSA. History of Present Illness Tests Reviewed: Reviewed UA. I have reviewed and verified the staff HPI to be accurate for this encounter. I have reviewed the previous health record information and history for this patient from Dr. Scruggs There have been no associated fever, chills, flank pain, or blood in the urine. Denies any urinary infections since last encounter. Review of Systems PHQ Score Initial Depression Screen Score: 0 ROS - Provider Constitutional: denies weight loss, denies hot flashes. Eyes: mild eye problems. Wears Glasses Gastrointestinal: denies nausea, denies vomiting. Cardiovascular: denies chest pain or angina. Integumentary: no dryness Musculoskeletal: denies musculoskeletal symptoms. ENMT: denies otolaryngeal symptoms. Respiratory: no shortness of breath. Heme/Lymph: denies easy bleeding tendency, denies easy bruising tendency. Psychiatric: no confusion, no anxiety. Genitourinary: denies dysuria, denies hematuria, denies discharge, denies urinary frequency, denies urinary hesitancy, denies nocturia, denies incontinence, denies genital sores, denies decreased libido, and denies erectile dysfunction. Physical Exam Vitals & Measurements HR: 68(Peripheral) RR: 16 BP: 127/84 HT: 66 in HT: 167 cm WT: 99.4 kg WT: 218.68 lb BMI: 35.64 General Appearance: alert, no distress, well nourished, well developed male. Flank Pain: none. Bladder: nonpalpable. Assessment/Plan 1. Rising PSA following treatment for malignant neoplasm of prostate (R97.21: Rising PSA following treatment for malignant neoplasm of prostate) S/P Prostatectomy done in 2014 & EBRT done in 2018. PSA done 10/25/22 0.13. Will not give Lupron today. Patient also takes Xtandi. Will continue to monitor. All questions and concerns were discussed and answered for patient. He is to call office with any issues prior to next appt. Plan f/u in 6 months with PSA and possible Lupron. 2. Prostate cancer (C61: Malignant neoplasm of prostate) S/P Prostatectomy done in 2014 & EBRT done in 2018. Patient currently on Xtandi oral medication. Will continue to monitor. 3. Microscopic hematuria (R31.29: Other microscopic hematuria) chronic, SMALL on UA today. Will continue to monitor. Last Cystoscopy done 08/21/2015. I have reviewed the previous health history and record for this patient with Dr. Scruggs. Will plan 6 month fu with PSA, possible Lupron. Follow-up With When Contact Information KAEL JAMES, Anthony Lee, COLT In 6 months [facility] [address], [place] [address]- [phone] Additional Instructions: f/u 6 month with PSA, possible Lupron Patient Education Prostate Cancer Screening I, Isamar Vale, personally scribed for Dr. Scruggs on 10/28/2022 08:36:44. . Documentation recorded by the scribe, eva Vale, accurately reflects the services(s) I performed and decisions made by me. Authenticated by Dr. Scruggs on 10/28/2022 08:39:13. Problem List/Past Medical History Ongoing CAD (coronary artery disease) History of prostate cancer HTN (hypertension) Hyperlipidemia Microscopic hematuria Nocturia Prostate cancer Rising PSA following treatment for malignant neoplasm of prostate Historical No qualifying data Procedure/Surgical History External beam radiotherapy (03/30/2018), Cystoscopy (10/20/2015), Radical prostatectomy (11/05/2014), 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 Medications aspirin 81 mg oral tablet, Oral, Daily atorvastatin 20 mg Tab, 20 mg= 1 tab(s), Oral, Daily glimepiride, Oral, Daily hydrochlorothiazide-lisinop ril 12.5 mg-20 mg Tab, 1 tab(s), Oral, Daily metformin 1000 mg oral tablet, Oral, BID metoprolol 25 mg ER Tab, 25 mg= 1 tab(s), Oral, BID Vitamin D3 Xtandi 80 mg oral tablet, Oral, Daily Allergies penicillin G benzathine (Unknown) Social History Alcohol Current, 1-2 times per year, 02/04/2019 Tobacco Never (less than 100 in lifetime) Tobacco Use:. Never Smokeless Tobacco Use:., 11/08/2021 Family History Cancer - unknown origin: Mother. Myocardial infarct: Father. Immunizations Vaccine Date Status Comments influenza virus vaccine, inactivated 04/16/2021 Recorded SARS-CoV-2 (COVID-19) Ad26 vaccine (more content not included)... Normal [facility] Comment on above: Result Comment: Elec tronically Signed By: Anthony SCRUGGS MD\.br\Date and Time Signed: 10/28/22 08:39 EDT\.br\Electronically Co-Signed By: Isamar Vale\.br\Date and Time Co-Signed: 10/28/22 08:37 EDT GLYCOHEMOGLOBIN A1Con 2022 ADA RECOMMENDATION SEE BELOW Normal [facility] Comment on above: Result Comment: ADA RECOMMENDED LIMIT 4.0 - 6.0 ADA THERAPEUTIC TARGET < 7.0 ACTION SUGGESTED > 7.0 Performed By: #### D ATA1C #### [facility] [address] [address] [address] Bharati Aguiar Glucose [Mass/Vol] 131 mg/dL Normal [facility] Comment on above: Performed By: #### D ATA1C #### [facility] [address] [address] [address] Bharati Aguiar HbA1c (Bld) [Mass fraction] 6.2 % Normal 4.5-6.2 [facility] Comment on above: Performed By: #### D ATA1C #### [facility] [address] [address] [address] Bharati Aguiar Consultation Noteon 08-12-19 Consultation Note [id number]#[id number]:127 Normal [facility] CBC W Auto Differential pane l (Bld)on 08-11-2022 Basophils (Bld) [#/Vol] 0.03 10*3/uL Normal <0.11 [facility] Comment on above: Order Comment: Speci men Type: BLOOD SPECIMENOrdering Facility: [facility] Address: [address] [place] [address] Performed By: #### 5 7021-8 ####[facility] LABCLIA [id number] [place] [address] Basophils/100 WBC (Bld) 0.4 % Normal [facility] Comment on above: Order Comment: Speci men Type: BLOOD SPECIMENOrdering Facility: [facility] Address: [address] [place] [address] Performed By: #### 5 7021-8 ####[facility] LABCLIA [id number] [place] [address] Differential cell count method Nom (Bld) Auto Normal [facility] Comment on above: Order Comment: Speci men Type: BLOOD SPECIMENOrdering Facility: [facility] Address: [address] [place] [address] Performed By: #### 5 7021-8 ####[facility] LABCLIA [id number] [place] [address] Eosinophils (Bld) [#/Vol] 0.36 10*3/uL Normal <0.46 [facility] Comment on above: Order Comment: Speci men Type: BLOOD SPECIMENOrdering Facility: [facility] Address: [address] [place] [address] Performed By: #### 5 7021-8 ####[facility] LABCLIA [id number] [place] [address] Eosinophils/100 WBC (Bld) 4.6 % Normal [facility] Comment on above: Order Comment: Speci men Type: BLOOD SPECIMENOrdering Facility: [facility] Address: [address] [place] [address] Performed By: #### 5 7021-8 ####[facility] LABCLIA [id number] [place] [address] Erythrocyte distribution width (RBC) [Ratio] 12.6 % Normal 11.5-15.0 [facility] Comment on above: Order Comment: Speci men Type: BLOOD SPECIMENOrdering Facility: [facility] Address: [address] [place] [address] Performed By: #### 5 7021-8 ####[facility] LABCLIA [id number] [place] [address] Hematocrit (Bld) [Volume fraction] 35.6 % Low 39.0-51.0 [facility] Comment on above: Order Comment: Speci men Type: BLOOD SPECIMENOrdering Facility: [facility] Address: [address] [place] [address] Performed By: #### 5 7021-8 ####[facility] LABCLIA [id number] [place] [address] Hemoglobin (Bld) [Mass/Vol] 11.9 g/dL Low 13.0-17.0 [facility] Comment on above: Order Comment: Speci men Type: BLOOD SPECIMENOrdering Facility: [facility] Address: [address] [place] [address] Performed By: #### 5 7021-8 ####[facility] LABCLIA [id number] [place] [address] Immature granulocytes (Bld) [#/Vol] 0.05 10*3/uL Normal <0.10 [facility] Comment on above: Order Comment: Speci men Type: BLOOD SPECIMENOrdering Facility: [facility] Address: [address] [place] [address] Performed By: #### 5 7021-8 ####[facility] LABCLIA [id number] [place] [address] Immature granulocytes/100 WBC (Bld) 0.6 % Normal [facility] Comment on above: Order Comment: Speci men Type: BLOOD SPECIMENOrdering Facility: [facility] Address: [address] [place] [address] Performed By: #### 5 7021-8 ####[facility] LABCLIA [id number] [place] [address] Lymphocytes (Bld) [#/Vol] 2.57 10*3/uL Normal 1.00-4.00 [facility] Comment on above: Order Comment: Speci men Type: BLOOD SPECIMENOrdering Facility: [facility] Address: [address] [place] [address] Performed By: #### 5 7021-8 ####[facility] LABCLIA [id number] [place] [address] Lymphocytes/100 WBC (Bld) 32.7 % Normal [facility] Comment on above: Order Comment: Speci men Type: BLOOD SPECIMENOrdering Facility: [facility] Address: [address] [place] [address] Performed By: #### 5 7021-8 ####[facility] LABCLIA [id number] [place] [address] MCH (RBC) [Entitic mass] 31.6 pg Normal 26.0-34.0 [facility] Comment on above: Order Comment: Speci men Type: BLOOD SPECIMENOrdering Facility: [facility] Address: [address] [place] [address] Performed By: #### 5 7021-8 ####[facility] LABCLIA [id number] [place] [address] MCHC (RBC) [Mass/Vol] 33.4 g/dL Normal 30.5-36.0 [facility] Comment on above: Order Comment: Speci men Type: BLOOD SPECIMENOrdering Facility: [facility] Address: [address] [place] [address] Performed By: #### 5 7021-8 ####[facility] LABCLIA [id number] [place] [address] MCV (RBC) [Entitic vol] 94.4 fL Normal 80.0-100.0 [facility] Comment on above: Order Comment: Speci men Type: BLOOD SPECIMENOrdering Facility: [facility] Address: [address] [place] [address] Performed By: #### 5 7021-8 ####[facility] LABCLIA [id number] [place] [address] Monocytes (Bld) [#/Vol] 0.72 10*3/uL Normal <0.87 [facility] Comment on above: Order Comment: Speci men Type: BLOOD SPECIMENOrdering Facility: [facility] Address: [address] [address] Performed By: #### 5 7021-8 ####[facility] LABCLIA [id number] [place] [address] Monocytes/100 WBC (Bld) 9.2 % Normal [facility] Comment on above: Order Comment: Speci men Type: BLOOD SPECIMENOrdering Facility: [facility] Address: [address] [address] Performed By: #### 5 7021-8 ####[facility] LABCLIA [id number] [place] [address] Neutrophils (Bld) [#/Vol] 4.13 10*3/uL Normal 1.45-7.50 [facility] Comment on above: Order Comment: Speci men Type: BLOOD SPECIMENOrdering Facility: [facility] Address: [address] [place] [address] Performed By: #### 5 7021-8 ####[facility] LABCLIA [id number] [place] [address] Neutrophils/100 WBC (Bld) 52.5 % Normal [facility] Comment on above: Order Comment: Speci men Type: BLOOD SPECIMENOrdering Facility: [facility] Address: [address] [place] [address] Performed By: #### 5 7021-8 ####[facility] LABCLIA [id number] [place] [address] Nucleated RBC (Bld) [#/Vol] 10*3/uL Normal <0.01 [facility] Comment on above: Order Comment: Speci men Type: BLOOD SPECIMENOrdering Facility: [facility] Address: [address] [place] [address] Performed By: #### 5 7021-8 ####[facility] LABIA [id number] [place] [address] Nucleated RBC/100 WBC (Bld) [Ratio] 0.0 /100 WBC Normal [facility] Comment on above: Order Comment: Speci men Type: BLOOD SPECIMENOrdering Facility: [facility] Address: [address] [place] [address] Performed By: #### 5 7021-8 ####[facility] LABCLIA [id number] [place] [address] Platelet mean volume (Bld) [Entitic vol] 10.5 fL Normal 9.0-12.7 [facility] Comment on above: Order Comment: Speci men Type: BLOOD SPECIMENOrdering Facility: [facility] Address: [address] [place] [address] Performed By: #### 5 7021-8 ####[facility] LABIA [id number] [place] [address] Platelets (Bld) [#/Vol] 225 10*3/uL Normal 150-400 [facility] Comment on above: Order Comment: Speci men Type: BLOOD SPECIMENOrdering Facility: [facility] Address: [address] [place], [place] [address] Performed By: #### 5 7021-8 ####[facility] [id number] [place] [address] RBC (Bld) [#/Vol] 3.77 10*6/uL Low 4.20-6.00 [facility] Comment on above: Order Comment: Speci men Type: BLOOD SPECIMENOrdering Facility: [facility] Address: [address] [place], [place] [address] Performed By: #### 5 7021-8 ####[facility] [id number] [place] [address] WBC (Bld) [#/Vol] 7.86 10*3/uL Normal 3.70-11.00 [facility] Comment on above: Order Comment: Speci men Type: BLOOD SPECIMENOrdering Facility: [facility] Address: [address] [place] [address] Performed By: #### 5 7021-8 ####[facility] [id number] [place] [address] CNOVSPon 08-11-2022 OVS Visit (SP) Office (H EMASA) PABLO FELIX ([id number]) 1945 M Date Time Provider Department 08/11/22 10:00 AM MARCO A ESQUEDA During your visit today, we recorded the following information about you: Temperature Pulse Respiration Blood pressure 97 degrees 53/minute 16/minute 129/56 Weight Height 96.4 kg 1.676 m Marco A Esqueda MD 08/12/2022 7:59 AM Signed PATIENT NAME: Pablo Felix DATE: 08/11/2022 PRIMARY CARE PHYSICIAN: Dr. Jamar Fall OTHER PHYSICIANS: Dr. Anthony Scruggs, Dr. Khan, [facility] Cardiology Portions of this encounter note have been copied from my note from 05/12/2022 and has been updated where appropriate, and reflect my current medical decision making from today. CC: This is a 77 year old male with metastatic prostate cancer, seen for scheduled follow-up and Xgeva. INTERIM HISTORY: Since the patient's last visit here he has had no significant medical changes. He remains on Xtandi 160 mg daily and is tolerating it well. He receives Lupron every [address] Scruggs, last given April 2022. On follow-up today he feels well. He denies any significant pain or other systemic symptoms. No difficulties with urination. MEDICATIONS: Current Outpatient Medications Medication Sig Calcium Citrate-Vitamin D3 200 mg-6.25 mcg (250 unit) tab Take 2 tablets by mouth once daily. metoprolol succinate ER (TOPROL XL) 25 mg 24 hr tablet Take by mouth. Iuvgplbpgjpfz-Mignlrkh-Wcoj in (MULTIVITAMIN 50 PLUS) tab Take 1 tablet by mouth once daily. enzalutamide (XTANDI) 80 mg tablet Take 2 tablets (160 mg) by mouth once daily. GLIMEPIRIDE ORAL Take 0.5 mg by mouth once daily. metFORMIN (GLUCOPHAGE) 1,000 mg tablet Take 1,000 mg by mouth once daily. atorvastatin (LIPITOR) 40 mg tablet Take 40 mg by mouth once daily. lisinopril-hydrochlorothiaz rosalee (PRINZIDE,ZESTORETIC) 20-12.5 mg per tablet Take 1 tablet by mouth once daily. aspirin, enteric coated (ASPIRIN, ENTERIC COATED) 81 mg EC tablet Take 81 mg by mouth once daily. No current facility-administered medications for this visit. ALLERGIES: ALLERGIES Allergen Reactions Penicillins Unknown Simvastatin Unknown PAST MEDICAL HISTORY: PAST MEDICAL HISTORY Diagnosis Date CAD (coronary artery disease) Hypercholesterolemia on medication Hypertension on medication Nocturia Prostate CA (HCC) Rising PSA level 10/2021 PAST SURGICAL HISTORY: PAST SURGICAL HISTORY Procedure Laterality Date APPENDECTOMY CORONARY ARTERY BYPASS GRAFT FAMILY HISTORY: FAMILY HISTORY Problem Relation Age of Onset Cancer Mother Cancer SOCIAL HISTORY: Social History Tobacco Use Smoking status: Never Smokeless tobacco: Never Vaping Use Vaping Use: Never used Substance Use Topics Alcohol use: Yes Comment: 1 day/wk Drug use: No REVIEW OF SYSTEMS: General: No weight loss, malaise or fevers. HEENT: Negative for frequent or significant headaches. No changes in hearing or vision, no nose bleeds or other nasal problems. Respiratory: Negative for cough, wheezing or shortness of breath. Cardiovascular: Negative for chest pain, leg swelling or palpitations. GI: Negative for abdominal discomfort, blood in stools or black stools or change in bowel habits. : No history of dysuria, frequency or incontinence. Musculoskeletal: Negative for: joint pain or swelling, back pain and muscle pain. Skin: Negative for lesions, rash and itching. Hematology/Lymphology: Negative for prolonged bleeding, bruising easily or swollen nodes. Neuro: No history of headaches, syncope, paralysis, seizures or tremors. PHYSICAL EXAM: BP 129/56 Pulse (!) 53 Temp 36.1 ?C (97 ?F) (Temporal) Resp 16 Ht 167.6 cm (5' 5.98 ) Wt 96.4 kg (212 lb 9.6 oz) SpO2 97% BMI 34.33 kg/m? ECOG 0 Exam limited to gross visualization where appropriate due to COVID-19. Gen.: This is an age-appropriate patient in no acute distress. Head: Appears atraumatic with no visible lesions. Eyes: Pupils equally round and reactive to light, extraocular muscles are intact. Neck: Supple. Mouth: Masked. Respiratory: Appears to be respiring comfortably. Neurologic: Nonfocal to gross visualization. Alert and oriented ?3. Psychiatric: No evidence of inappropriate anxiety or depression. Skin: Visible areas of skin without rash, lesions, wounds or petechiae. 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 Left base margin positive for neoplasm. Seminal vesicles with no diagnostic abnormality. 2 resected lymph nodes negative for neoplasm. LABS: Hemoglobin (g/dL) Date Value 08/11/2022 11.9 05/08/2018 12.8 Hematocrit (%) Date Value 08/11/2022 35.6 05/08/2018 36.8 WBC (k/uL) Date Value (more content not included)... Normal [facility] metabolic 2000 panelon 08-11-2022 Albumin [Mass/Vol] 4.4 g/dL Normal 3.9-4.9 [facility] Comment on above: Order Comment: Speci men Type: BLOOD SPECIMENOrdering Facility: [facility] Address: [address] [place] [address] Performed By: #### 2 4323-8 ####[facility] LABCLIA [id number] [place] [address] ALP [Catalytic activity/Vol] 66 U/L Normal 38-113 [facility] Comment on above: Order Comment: Speci men Type: BLOOD SPECIMENOrdering Facility: [facility] Address: [address] [place] [address] Performed By: #### 2 4323-8 ####[facility] LABCLIA [id number] [place] [address] ALT [Catalytic activity/Vol] 17 U/L Normal 10-54 [facility] Comment on above: Order Comment: Speci men Type: BLOOD SPECIMENOrdering Facility: [facility] Address: [address] [place] [address] Performed By: #### 2 4323-8 ####[facility] LABCLIA [id number] [place] [address] Anion gap [Moles/Vol] 10 mmol/L Normal 9-18 [facility] Comment on above: Order Comment: Speci men Type: BLOOD SPECIMENOrdering Facility: [facility] Address: [address] [address] Performed By: #### 2 4323-8 ####[facility] LABCLIA [id number] [place] [address] AST [Catalytic activity/Vol] 18 U/L Normal 14-40 [facility] Comment on above: Order Comment: Speci men Type: BLOOD SPECIMENOrdering Facility: [facility] Address: [address] [place] [address] Performed By: #### 2 4323-8 ####[facility] LABCLIA [id number] [place] [address] Bilirubin [Mass/Vol] 0.7 mg/dL Normal 0.2-1.3 [facility] Comment on above: Order Comment: Speci men Type: BLOOD SPECIMENOrdering Facility: [facility] Address: [address] [place] [address] Performed By: #### 2 4323-8 ####[facility] LABCLIA [id number] [place] [address] Calcium [Mass/Vol] 9.4 mg/dL Normal 8.5-10.2 [facility] Comment on above: Order Comment: Speci men Type: BLOOD SPECIMENOrdering Facility: [facility] Address: [address] [place] [address] Performed By: #### 2 4323-8 ####[facility] LABCLIA [id number] [place] [address] Chloride [Moles/Vol] 99 mmol/L Normal 97-105 [facility] Comment on above: Order Comment: Speci men Type: BLOOD SPECIMENOrdering Facility: [facility] Address: [address] [place] [address] Performed By: #### 2 4323-8 ####[facility] LABCLIA [id number] [place] [address] CO2 [Moles/Vol] 27 mmol/L Normal 22-30 [facility] Comment on above: Order Comment: Speci men Type: BLOOD SPECIMENOrdering Facility: [facility] Address: [address] [place] [address] Performed By: #### 2 4323-8 ####[facility] LABCLIA [id number] [place] [address] Creatinine [Mass/Vol] 0.76 mg/dL Normal 0.73-1.22 [facility] Comment on above: Order Comment: Speci men Type: BLOOD SPECIMENOrdering Facility: [facility] Address: [address] [address] Performed By: #### 2 4323-8 ####[facility] LABCLIA [id number] [place] [address] ESTIMATED GLOMERULAR FILTRATION RATE 93 mL/min/1.73m??? Normal >=60 [facility] Comment on above: Order Comment: Francigarett camilo Type: BLOOD SPECIMENOrdering Facility: [facility] Address: [address] [place] [address] Result Comment: Renae mated Glomerular Filtration Rate (eGFR) is calculated using the 2020 CKD-EPI creatinine equation. This equation utilizes serum creatinine, sex, and age as parameters. The creatinine assay has traceable calibration to isotope dilution-mass spectrometry. Refer to KDIGO guidelines for clinical interpretation. In patients with unstable renal function, e.g. those with acute kidney injury, the eGFR may not accurately reflect actual GFR. Performed By: #### 2 4323-8 ####[facility] LABCLIA [id number] [place] [address] Glucose [Mass/Vol] 127 mg/dL High 74-99 [facility] Comment on above: Order Comment: Nicanor camilo Type: BLOOD SPECIMENOrdering Facility: [facility] Address: [address] [place] [address] Result Comment: The [place] Diabetes Association (ADA) provides guidance for cutoff values for fasting glucose and random glucose. The ADA defines fasting as no caloric intake for at least 8 hours. Fasting plasma glucose results between 100 to 125 mg/dL indicate increased risk for diabetes (prediabetes). Fasting plasma glucose results greater than or equal to 126 mg/dL meet the criteria for diagnosis of diabetes. In the absence of unequivocal hyperglycemia, results should be confirmed by repeat testing. In a patient with classic symptoms of hyperglycemia or hyperglycemic crisis, random plasma glucose results greater than or equal to 200 mg/dL meet the criteria for diagnosis of diabetes. Reference: Standards of Medical Care in Diabetes 2016, [place] [employer]. Diabetes Care. 2016.39(Suppl 1). Performed By: #### 2 4323-8 ####[facility] LABCLIA [id number] [place] [address] Potassium [Moles/Vol] 4.4 mmol/L Normal 3.7-5.1 [facility] Comment on above: Order Comment: Speci men Type: BLOOD SPECIMENOrdering Facility: [facility] Address: [address] [place] [address] Performed By: #### 2 4323-8 ####[facility] LABCLIA [id number] [place] [address] Protein [Mass/Vol] 6.7 g/dL Normal 6.3-8.0 [facility] Comment on above: Order Comment: Speci men Type: BLOOD SPECIMENOrdering Facility: [facility] Address: [address] [place] [address] Performed By: #### 2 4323-8 ####[facility] LABIA [id number] [place] [address] Sodium [Moles/Vol] 136 mmol/L Normal 136-144 [facility] Comment on above: Order Comment: Speci men Type: BLOOD SPECIMENOrdering Facility: [facility] Address: [address] [place] [address] Performed By: #### 2 4323-8 ####[facility] LABIA [id number] [place] [address] Urea nitrogen [Mass/Vol] 16 mg/dL Normal 9-24 [facility] Comment on above: Order Comment: Speci men Type: BLOOD SPECIMENOrdering Facility: [facility] Address: [address] [place] [address] Performed By: #### 2 4323-8 ####[facility] LABIA [id number] [place] [address] [facility] Prostate specific Ag [Mass/Vol] 0.11 ng/mL Normal <2.60 [facility] Comment on above: Order Comment: Speci men Type: BLOOD SPECIMENOrdering Facility: [facility] Address: [address] [place] [address] Result Comment: Terrie l PSA test methodology used is the Electrochemiluminescence Immunoassay by [employer]. Total PSA values by differing methodologies cannot be interchanged. Performed By: #### 2 857-1 ####[facility] LABCLIA [id number] DAVIDHerlinda [facility]ENTERaNtaliya [id number] [address] [place] XR CSPINE OBL FLEX_EXTon XR CSPINE OBL FLEX_EXT EXAMINATION: XR CSPINE OBL FLEX_EXT HISTORY: Radiculopathy due to cervical spondylosis COMPARISON: No relevant comparison available. FINDINGS: BONES: No fracture or spondylolisthesis. Multilevel mild/moderate degenerative facet arthropathy. No change in alignment during flexion and extension. DISC SPACES: Mild narrowing C3-4, C5-6. PARASPINOUS: No paraspinous abnormality is seen. OTHER: Negative. IMPRESSION: 1. Multilevel mild degenerative disc disease and facet arthropathy. 2. No appreciable acute abnormality. Electronically authenticated by: CYNTHIA TORRES Date: 2022-07-21 15:52 Normal [facility] GLYCOHEMOGLOBIN A1Con 2021 ADA RECOMMENDATION SEE BELOW Normal [facility] Comment on above: Result Comment: ADA RECOMMENDED LIMIT 4.0 - 6.0 ADA THERAPEUTIC TARGET < 7.0 ACTION SUGGESTED > 7.0 Performed By: #### D ATA1C #### [facility] [address] [address] [address] Bharati Aguiar Glucose [Mass/Vol] 134 mg/dL Normal [facility] Comment on above: Performed By: #### D ATA1C #### [facility] [address] [address] [address] Bharati Aguiar HbA1c (Bld) [Mass fraction] 6.3 % Critically high 4.5-6.2 [facility] Comment on above: Performed By: #### D ATA1C #### [facility] [address] [address] [address] Bharati Aguiar Ambulatory Visit Summaryon Ambulatory Visit Summary PABLO FELIX :1945 Visit Date:05/13/2022 Ambulatory Visit Instructions Your Diagnosis Rising PSA following treatment for malignant neoplasm of prostate Prostate cancer Tests Performed Urnls Dip Stick Auto w/o Microscopy POC 13981 Your Care Team Attending Physician - Anthony SCRUGGS MD Primary Care Physician - JAMAR FALL DO This Is Your Medications List Contact prescribing physician if questions or concerns aspirin (aspirin 81 mg oral tablet) atorvastatin (atorvastatin 20 mg Tab) cholecalciferol (Vitamin D3) enzalutamide (Xtandi 80 mg oral tablet) glimepiride hydrochlorothiazide-lisinop ril (hydrochlorothiazide-lisino pril 12.5 mg-20 mg Tab) metformin (metformin 1000 mg oral tablet) metoprolol (metoprolol 25 mg ER Tab) Procedures Performed External beam radiotherapy (03/30/2018), Cystoscopy (10/20/2015), Radical prostatectomy (11/05/2014), 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 Discharge Vitals Heart Rate (Peripheral) 55 Respiratory Rate 16 Blood Pressure 108/72 Height 167 cm Height 66 in Weight 99 kg Weight 217.8 lb BMI 35.5 What to do next Scheduled Follow-Up Appointments Monday 8:00 AM EDT With: Anthony SCRUGGS MD Where: [facility] Patient Educationon 05-13-20 22 Patient Education Oncology Prostate Cancer The prostate is a walnut-sized gland that is involved in the production of semen. It is located below a man's bladder, in front of the rectum. Prostate cancer is the abnormal growth of cells in the prostate gland. What are the causes? The exact cause of this condition is not known. What increases the risk? This condition is more likely to develop in men who: ? Are older than age 65. ? Are -[place]. ? Are obese. ? Have a family history of prostate cancer. ? Have a family history of breast cancer. What are the signs or symptoms? Symptoms of this condition include: ? A need to urinate often. ? Weak or interrupted flow of urine. ? Trouble starting or stopping urination. ? Inability to urinate. ? Pain or burning during urination. ? Painful ejaculation. ? Blood in urine or semen. ? Persistent pain or discomfort in the lower back, lower abdomen, hips, or upper thighs. ? Trouble getting an erection. ? Trouble emptying the bladder all the way. How is this diagnosed? This condition can be diagnosed with: ? A digital rectal exam. For this exam, a health care provider inserts a gloved finger into the rectum to feel the prostate gland. ? A blood test called a prostate-specific antigen (PSA) test. ? An imaging test called transrectal ultrasonography. ? A procedure in which a sample of tissue is taken from the prostate and examined under a microscope (prostate biopsy). Once the condition is diagnosed, tests will be done to determine how far the cancer has spread. This is called staging the cancer. Staging may involve imaging tests, such as: ? A bone scan. ? A CT scan. ? A PET scan. ? An MRI. The stages of prostate cancer are as follows: ? Stage I. At this stage, the cancer is found in the prostate only. The cancer is not visible on imaging tests and it is usually found by accident, such as during a prostate surgery. ? Stage II. At this stage, the cancer is more advanced than it is in stage I, but the cancer has not spread outside the prostate. ? Stage III. At this stage, the cancer has spread beyond the outer layer of the prostate to nearby tissues. The cancer may be found in the seminal vesicles, which are near the bladder and the prostate. ? Stage IV. At this stage, the cancer has spread other parts of the body, such as the lymph nodes, bones, bladder, rectum, liver, or lungs. How is this treated? Treatment for this condition depends on several factors, including the stage of the cancer, your age, personal preferences, and your overall health. Talk with your health care provider about treatment options that are recommended for you. Common treatments include: ? Observation for early stage prostate cancer (active surveillance). This involves having exams, blood tests, and in some cases, more biopsies. For some men, this is the only treatment needed. ? Surgery. Types of surgeries include: ? Open surgery. In this surgery, a larger incision is made to remove the prostate. ? A laparoscopic prostatectomy. This is a surgery to remove the prostate and lymph nodes through several, small incisions. It is often referred to as a minimally invasive surgery. ? A robotic prostatectomy. This is a surgery to remove the prostate and lymph nodes with the help of a robotic arm that is controlled by a computer. ? Orchiectomy. This is a surgery to remove the testicles. ? Cryosurgery. This is a surgery to freeze and destroy cancer cells. ? Radiation treatment. Types of radiation treatment include: ? External beam radiation. This type aims beams of radiation from outside the body at the prostate to destroy cancerous cells. ? Brachytherapy. This type uses radioactive needles, seeds, wires, or tubes that are implanted into the prostate gland. Like external beam radiation, brachytherapy destroys cancerous cells. An advantage is that this type of radiation limits the damage to surrounding tissue and has fewer side effects. ? High-intensity, focused ultrasonography. This treatment destroys cancer cells by delivering high-energy ultrasound waves to the cancerous cells. ? Chemotherapy medicines. This treatment kills cancer cells or stops them from multiplying. ? Hormone treatment. This treatment involves taking medicines that act on one of the male hormones (testosterone): ? By stopping your body from producing testosterone. ? By blocking testosterone from reaching cancer cells. Follow these instructions at home: ? Take fjak-fcs-hsfkzwv and prescription medicines only as told by your health care provider. ? Maintain a healthy diet. ? Get plenty of sleep. ? Consider joining a support group for men who have prostate cancer. Meeting with a support group may help you learn to cope with the stress of having cancer. ? Keep all follow-up visits as told by your health care provider. This is important. ? If you have to go to the hospital, notify your cancer specialis (more content not included)... Normal [facility] Urology Office/Clinic Noteon 05-13-2022 Urology Office/Clinic Note Chief Complaint PSA and Lupron injection HPI Staff Pt is here for 6 month f/u with PSA and Lupron injection. Previous dx of rising PSA following treatment for malignant neoplasm of prostate. Current PSA done 05/05/22 is 0.15 and previous done 10/25/21 was 2.64. Dysuria: no Incomplete bladder emptying: no Hematuria: no Frequency: no Urgency: no Nocturia: 1x Stream: no straining good stream Leaking: no Post void dripping: no Wearing pads/ Depends: no Urge incontinence: no Stress incontinence: no Incontinence without Sensory Awareness: no Abdominal pain: no Flank pain: no Sexual complaints: no History of Present Illness Tests reviewed: reviewed UA & PSA. I have reviewed the previous health record information and history for this patient from Dr. Scruggs. I have reviewed and verified the staff HPI to be accurate for this encounter. There have been no associated fever, chills, flank pain, or blood in the urine. Denies any urinary infections since last encounter. Review of Systems PHQ Score Initial Depression Screen Score: 0 ROS - Provider Constitutional: denies weight loss, denies hot flashes. Eyes: denies eye problems. Gastrointestinal: denies nausea, denies vomiting. Cardiovascular: denies chest pain or angina. Integumentary: no dryness Musculoskeletal: denies musculoskeletal symptoms. ENMT: denies otolaryngeal symptoms. Respiratory: no shortness of breath. Heme/Lymph: denies easy bleeding tendency, denies easy bruising tendency. Psychiatric: no confusion, no anxiety. Genitourinary: denies dysuria, denies hematuria, denies discharge, denies urinary frequency, denies urinary hesitancy, denies nocturia, denies incontinence, denies genital sores, denies decreased libido, and denies erectile dysfunction. Physical Exam Vitals & Measurements HR: 55(Peripheral) RR: 16 BP: 108/72 HT: 66 in HT: 167 cm WT: 99 kg WT: 217.8 lb BMI: 35.5 General Appearance: alert, no distress, well nourished, well developed male. Genitourinary: normal scrotum, normal testes, normal urethra, normal epididymis, normal vas deferens/spermatic cord. Flank Pain: none. Bladder: nonpalpable. Assessment/Plan 1. Rising PSA following treatment for malignant neoplasm of prostate (R97.21: Rising PSA following treatment for malignant neoplasm of prostate) Patient continues with Lupron 45mg q6 mos therapy. Current PSA 0.15 done 05/05/22. Previous PSA 2.64 done 10/25/21. Patient states he was started on Xtandi (Enzalutamide) 80mg BID started by Dr. Esqueda. Pt. had been started on Zytiga 500mg & Prednisone back in August of this year but pt. no longer taking, substituted for Xtandi. Pt. may have some metastatic lesions noted via bone scan. Next follow up with oncology in 3 months, just saw Dr. Esqueda yesterday. Reports he will be given a bone strengthener at that time. Lupron 45 mgIM injection given today with no complications. Right glute. Pt. denies side effects at this time. Follow up in 6 mos with PSA & Lupron injection. All questions/concerns were discussed. Pt. to call the office if heencounters any issues prior. Pt. acknowledges understanding. 2. Prostate cancer (C61: Malignant neoplasm of prostate) S/p Prostatectomy done 2014 & EBRT done 2017. Follow-up With When Contact Information KAEL JAMES, Anthony Lee, URL [address] [place], [place] [id number]- Additional Instructions: 6 mos PSA & Lupron Patient Education Prostate Cancer I, Olamide Ureña, personally scribed for Dr. Scruggs on 05/13/2022 09:33:41. . Documentation recorded by the scribe, Olamide Ureña, accurately reflects the services(s) I performed and decisions made by me. Authenticated by Dr. Scruggs on 05/13/2022 09:35:07. Problem List/Past Medical History Ongoing CAD (coronary artery disease) History of prostate cancer HTN (hypertension) Hyperlipidemia Microscopic hematuria Nocturia Prostate cancer Rising PSA following treatment for malignant neoplasm of prostate Historical No qualifying data Procedure/Surgical History External beam radiotherapy (03/30/2018), Cystoscopy (10/20/2015), Radical prostatectomy (11/05/2014), 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 Medications aspirin 81 mg oral tablet, Oral, Daily atorvastatin 20 mg Tab, 20 mg= 1 tab(s), Oral, Daily glimepiride, Oral, Daily hydrochlorothiazide-lisinop ril 12.5 mg-20 mg Tab, 1 tab(s), Oral, Daily metformin 1000 mg oral tablet, Oral, BID metoprolol 25 mg ER Tab, 25 mg= 1 tab(s), Oral, BID Vitamin D3 Xtandi 80 mg oral tablet, Oral, Daily Allergies penicillin G benzathine (Unknown) Social History Alcohol Current, 1-2 times per year, 02/04/2019 Tobacco Never (less than (more content not included)... Normal [facility] Comment on above: Result Comment: Elec tronically Signed By: Anthony SCRUGGS MD\.br\Date and Time Signed: 05/13/22 09:35 EDT\.br\Electronically Co-Signed By: Olamide Ureña.br\Date and Time Co-Signed: 05/13/22 09:33 EDT Consultation Noteon 05-12-20 Consultation Note [id number]:[id number] Normal [facility] Lab Reportson 05-09-2022 Lab Reports [id number] Normal [facility] ECHOCARDIO M/2D COMPLETEon 1 ECHOCARDIO M/2D COMPLETE Patient: PABLO FELIX Exam Date: 04/27/2022 : 1945 Gender:M Ordering : LORA ENGLISH Admission #: [id number] Family : DR JAMAR FALL D.O. Order #: [id number] CLICK HERE TO VIEW EXAM ECHOCARDIOGRAM REPORT PROCEDURE: CARDIO PULMONARY ECHOCARDIO M/2D COMP INDICATIONS: Moderate aortic valve stenosis COMPARISON: None. DESCRIPTION: COMPLETE ECHOCARDIOGRAM Real-time transthoracic echocardiography with 2D, M-mode, spectral and color flow Doppler performed. QUALITY: Technical quality was good. 65 213# 126/62 HR 50 LEFT VENTRICLE: Normal chamber size. Normal left ventricular wall thickness. Global left ventricular systolic function is normal. Visual ejection fraction 60%. LV EF: DIASTOLIC: Grade 1 diastolic dysfunction. ATRIAL SEPTUM: LEFT ATRIUM: Mild dilatation. RIGHT ATRIUM: Moderate dilatation. RIGHT VENTRICLE: Moderate dilatation. Normal right ventricular systolic function. TRICUSPID VALVE: Normal mobility and thickness. No stenosis with moderate regurgitation. Doppler studies reveal mildly (35-45) elevated right sided pressures. RVSP is 38 mmHg MITRAL VALVE: Mildly thickened with normal mobility. No evidence of mitral valve stenosis. Mild mitral annular calcification. Mild mitral regurgitation. AORTIC VALVE: Normal trileaflet appearance. Severely calcified aortic valve. Doppler velocity suggest moderate aortic valve stenosis. DVI 0.30 ROGER 1.1 cm2, mean gradient 25 mmHg, peak velocity 3.3 m/s. Mild aortic regurgitation. AORTIC ROOT: Normal diameter and appearance. PULMONIC VALVE: Normal thickness and mobility. No stenosis. Trivial regurgitation. PERICARDIUM: No evidence of pericardial effusion. IVC: Collapses with inspirations. IVC is normal in size. PLEURA: CONCLUSION: 1. Normal left ventricular systolic function. LVEF is 60%. 2. Mild diastolic dysfunction. 3. Moderately dilated right ventricle with normal systolic function. 4. Moderate aortic valve stenosis. 5. Moderate tricuspid regurgitation. 6. Mildly elevated right-sided pressures. Adult Echocardiography Procedure Report Left Ventricle LVEDD (3.7 - 5.6 cm): 5.10 cm LVESD (2.2 - 4.0 cm): 3.82 cm LVPW thickness (0.5 - 1.0 cm): 0.99 cm LVOT Max Gradient: 4.01 mm[Hg], 4.01 mm[Hg] Peak Velocity (LVOT): 1.00 m/s, 1.00 m/s Mean Velocity (LVOT): 0.69 m/s LVOT Diameter 2.14 cm Left Ventricular Ejection Fraction: 60% Left Atrium LA Volume Index (2D A2C): 71.18 ml, 71.18 ml Left Atrium Systolic Dimension: 4.17 cm Mitral Valve MV E to A Ratio: 0.88 Mitral Valve A-Wave Peak Velocity: 1.31 m/s Mitral Valve E-Wave Peak Velocity: 1.15 m/s Right Ventricle RV Internal Diastolic Dimension: 4.94 cm Aorta AO Root Diam: 3.29 cm Ascending Ao Diam: 3.42 cm Aortic Valve AoV Area (Peak Kael): 1.09 cm2, 1.11 cm2, 1.09 cm2, 1.11 cm2 AoV Area (VTI): 1.13 cm2, 1.18 cm2 Peak Velocity(Antegrade Flow): 3.24 m/s, 3.28 m/s Peak Gradient(Antegrade Flow): 42.04 mm[Hg], 43.08 mm[Hg] Mean Velocity(Antegrade Flow): 2.28 m/s, 2.38 m/s Mean Gradient(Antegrade Flow): 23.11 mm[Hg], 24.92 mm[Hg] Velocity Time Integral: 80.16 cm, 83.51 cm Tricuspid Valve Peak Velocity (Regurgitant Flow): 2.74 m/s, 2.98 m/s Peak Velocity: 0.69 m/s Pulmonic Valve Peak Velocity: 0.82 m/s Peak Gradient: 2.72 mm[Hg] Right Atrium Dictated by: Faizan Carreon M.D. on 04/28/2022 at 19:03 Approved by: Faizan Carreon M.D. on 04/28/2022 at 19:09 Normal [facility] GLYCOHEMOGLOBIN A1Con 2021 ADA RECOMMENDATION SEE BELOW Normal [facility] Comment on above: Result Comment: ADA RECOMMENDED LIMIT 4.0 - 6.0 ADA THERAPEUTIC TARGET < 7.0 ACTION SUGGESTED > 7.0 Performed By: #### D ATA1C ####[facility] [id number] [place] [id number]. Bharati Aguiar Glucose [Mass/Vol] 137 mg/dL Normal [facility] Comment on above: Performed By: #### D ATA1C ####[facility] [id number] [place] [id number]. Bharati Aguiar HbA1c (Bld) [Mass fraction] 6.4 % Critically high 4.5-6.2 [facility] Comment on above: Performed By: #### D ATA1C ####[facility] [id number] [place] [id number]. Bharati Aguiar NM BONE SC WH BODYon 022 NM BONE SC WH BODY WHOLE BODY RADIONUCL ROSALEE BONE SCAN: COMPARISON: CT of the chest, abdomen, and pelvis dated 11/05/2021 HISTORY: Prostate carcinoma TRACER DOSE: 25.0 mCi of technetium-99m MDP. FINDINGS: Fairly prominent tracer uptake is seen at the lesser trochanter of the left hip. This is suspicious for metastasis, although it was not obviously included in the [id number] of the recent CT. There are foci of tracer uptake that are considered typical for degenerative-arthritic change. This includes the lower lumbar spine, mid to lower thoracic spine, bilateral AC joints, as well as the small joints of the hands and feet bilaterally. Additional tracer uptake is seen that again raises concern for metastasis. This includes the lateral margin of the right scapula where a blastic focus was seen on CT. Multiple ribs are also involved bilaterally including the posterior left sixth rib, anterior right first rib, anterolateral right eighth and ninth ribs, posterior medial right fifth rib, and posterior right seventh rib. There is also tracer uptake at the right pubis near the symphysis corresponding to a blastic focus seen on CT. Urinary contaminant is seen inferior to the pelvic midline. Soft tissue distribution of tracer is otherwise considered unremarkable. IMPRESSION: 1. 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 It appears that more blastic foci were seen on CT that are not visible on this bone scan. 2. Degenerative-arthritic changes as above. Electronically authenticated by: FEDE DE JESUS Date: 2021-11-06 12:45 Normal [facility] CT CHEST W CONon 11-05-2021 CT CHEST W CON Clinical Indication: Primary malignant neoplasm of prostate Comparison: Bone scan from today. TECHNIQUE: Sequential trans-axial images were obtained thru the chest and upper abdomen after administration of iodinated contrast. Coronal and sagittal reconstructions were obtained. 100 cc of nonionic contrast material was used for the exam CT imaging performed at this location utilizes radiation dose optimization techniques which include one or more of the following:MIP images noted -Automated exposure control -Adjustment of the mA and/or kV according to patient size -Use of iterative reconstruction technique Dose: DLP = mGy-cm FINDINGS: LUNG PARENCHYMA AND PLEURA: There are ill-defined nodules present in the right lower lobe laterally and anteriorly 1 to 2 mm. Several ill-defined nodules measuring up to 2 mm noted in the right middle lobe as well. There are several right upper lobe lung nodules which are poorly defined, measuring up to 3 mm.. There is no significant interstitial lung disease. There are no pleural effusions. There is no pneumothorax. AIRWAY: The central airway is normal. MEDIASTINUM: No significant mediastinal lymphadenopathy. HEART: There is no pulmonary emboli identified in the visualized pulmonary arteries.The cardiac chambers are otherwise unremarkable. There is no pericardial effusion. VASCULAR STRUCTURES: The pulmonary arteries and great vessels are unremarkable. The thoracic aorta is within normal limits. The superior vena cava is unremarkable. OSSEOUS STRUCTURES: There are several sclerotic foci within the right ninth, third and eighth ribs, posteriorly which correspond with the bone scan findings. On the left side sclerotic foci are seen fifth 6/7 and eighth ribs posteriorly consistent with metastatic disease. This is consistent with the bone scan findings.. VISUALIZED UPPER ABDOMEN: The visualized upper abdomen is within normal limits. IMPRESSION: Several sclerotic lesions, and both ribs, consistent with metastatic disease. SL: [id number] EXAMINATION: CT ABD/PELV W CON, CT CHEST W CON HISTORY: Primary malignant neoplasm of prostate Clinical Indication: Primary malignant neoplasm of prostate; CT imaging performed at this location utilizes radiation dose optimization techniques which include one or more of the following: -Automated exposure control -Adjustment of the mA and/or kV according to patient size -Use of iterative reconstruction technique CT Radiation Dose DLP Comparison: Bone scan from earlier today Technique: Multi-detector CT imaging of the abdomen and pelvis is performed with contrast. Coronal and sagittal reconstructions were obtained. IV CONTRAST: 75 mL of Omnipaque GI CONTRAST: No oral contrast was administered which can limit assessment. FINDINGS: CT ABDOMEN : LUNG BASES: Unremarkable. ABDOMINAL SOLID ORGANS: The liver shows no focal mass lesions. Fatty changes are noted throughout the liver. Normal gallbladder. Mild pancreatic ductal dilatation. Normal adrenal glands. No mass lesions are seen The pancreas shows no focal mass or inflammatory changes. No ductal dilitation. The spleen is intact. The kidneys show normal size contour and axis. No kidney stones or hydronephrosis STOMACH AND BOWEL: The stomach is unremarkable. Small bowel loops visualized are normal caliber. The colon in the abdomen are unremarkable. PERITONEUM AND RETROPERITONEUM: There is no abdominal lymphadenopathy. There is no pneumoperitoneum or abdominal ascites. There are no retroperitoneal abnormalities. VASCULAR STRUCTURES: The abdominal aorta is unremarkable without aneurysm. The inferior vena cava is unremarkable. The mesenteric vessels and portal veinous structures are grossly patent. OSSEOUS STRUCTURES: There are no significant osseous abnormalities seen. ------- CT PELVIS : BOWEL: Rectosigmoid colon is unremarkable. PERITONEAL AND EXTRAPERITONEAL REGIONS: There is no pelvic free fluid or lymphadenopathy. The inguinal regions are unremarkable. BLADDER / : The bladder is unremarkable. Prostate gland has been removed. OSSEOUS STRUCTURES: There are severe degenerative changes. Ankylosis at the L5-S1 level with anterolisthesis of L5 on S1 causing severe bilateral neural foraminal stenosis. There is an area of uptake in the left posterior iliac bone, 3 mm consistent with metastatic disease. 4 mm lesion right iliac bone anteriorly is also seen. ----- On the bone scan is an area of uptake along the left proximal femur however it is unclear if there is any anatomic correlate based on the CT findings. IMPRESSION: 1. No acute abdominal or pelvic findings. 2. Evidence of prostatectomy, with several foci within the iliac bones bilaterally which suggests metastatic disease. Electronically authenticated by: LUIZ UMANA Date: 2021-11-05 14:08 Normal [facility] PROF 14(COMP METB)on 022 Albumin [Mass/Vol] 3.6 g/dL Normal 3.4-5.0 [facility] Comment on above: Performed By: #### C MP #### [facility] [address] [place] [address] Dr. Bharati Aguiar Albumin/Globulin [Mass ratio] 1.1 {ratio} Normal [facility] Comment on above: Performed By: #### C MP #### [facility] [address] [place] [address] Dr. Bharati Aguiar ALP [Catalytic activity/Vol] 89 U/L Normal 46-116 [facility] Comment on above: Performed By: #### C MP #### [facility] [address] [place] [address] Dr. Bharati Aguiar ALT [Catalytic activity/Vol] 33 U/L Normal 16-63 [facility] Comment on above: Performed By: #### C MP #### [facility] [address] [place] [address] Dr. Bharati Aguiar Anion gap [Moles/Vol] 12.1 mmol/L Normal [facility] Comment on above: Performed By: #### C MP #### [facility] [address] [place] [address] Dr. Bharati Aguiar AST [Catalytic activity/Vol] 19 U/L Normal 15-37 [facility] Comment on above: Performed By: #### C MP #### [facility] [address] [place] [address] Dr. Bharati Aguiar Bilirubin [Mass/Vol] 0.9 mg/dL Normal 0.2-1.3 [facility] Comment on above: Performed By: #### C MP #### [facility] [address] [address] [address] Bharati Aguiar Calcium [Mass/Vol] 8.8 mg/dL Normal 8.5-10.1 [facility] Comment on above: Performed By: #### C MP #### [facility] [address] [place] [address] Dr. Bharati Aguiar Chloride [Moles/Vol] 103 mmol/L Normal 98-107 [facility] Comment on above: Performed By: #### C MP #### [facility] [address] [place] [address] Dr. Bharati Aguiar CO2 [Moles/Vol] 28.6 mmol/L Normal 22.0-30.0 [facility] Comment on above: Performed By: #### C MP #### [facility] [address] [place] [address] Dr. Bharati Aguiar Creatinine [Mass/Vol] 0.85 mg/dL Normal 0.66-1.25 [facility] Comment on above: Performed By: #### C MP #### [facility] [address] [place] [address] Dr. Bharati Aguiar EGFR-AF ARGENTINE >60 Normal >=60 [facility] Comment on above: Performed By: #### C MP #### [facility] [address] [place] [address] Dr. Bharati Aguiar EGFR-NON AF ARGENTINE >60 Normal >=60 [facility] Comment on above: Performed By: #### C MP #### [facility] [address] [place] [address] Dr. Bharati Aguiar Globulin (S) [Mass/Vol] 3.4 g/dL Normal [facility] Comment on above: Performed By: #### C MP #### [facility] [address] [address] [address] Bharati Aguiar Glucose [Mass/Vol] 127 mg/dL Critically high 74-106 [facility] Comment on above: Performed By: #### C MP #### [facility] [address] [address] [address] Bharati Aguiar Potassium [Moles/Vol] 4.7 mmol/L Normal 3.4-5.0 [facility] Comment on above: Performed By: #### C MP #### [facility] [address] [address] [address] Bharati Aguiar Protein [Mass/Vol] 7.0 g/dL Normal 6.1-8.2 [facility] Comment on above: Performed By: #### C MP #### [facility] [address] [address] [address] Bharati Aguiar Sodium [Moles/Vol] 139 mmol/L Normal 137-145 [facility] Comment on above: Performed By: #### C MP #### [facility] [address] [address] [address] Bharati Aguiar Urea nitrogen [Mass/Vol] 18.0 mg/dL Normal 7.0-18.0 [facility] Comment on above: Performed By: #### C MP #### [facility] [address] [address] [address] Bharati Aguiar Urea nitrogen/Creatinin e [Mass ratio] 21.2 mg/mg Normal [facility] Comment on above: Performed By: #### C MP #### [facility] [address] [address] [address] Bharati Aguiar Vital Signs Date Time Vital Sign Value Performing Clinician Facility 08-24-2023 08:30-0500 Body height 168.91 cm Jamar Fall Other [facility] Other 08-24-2023 08:30-0500 Body mass index (BMI) [Ratio] 34.08 kg/m2 Jamar Fall Other [facility] Other 08-24-2023 08:30-0500 Body weight 97.25 kg Jamar Ball Other [facility] Other 08-24-2023 08:30-0500 Diastolic blood pressure 81 mm[Hg] Jamar Ball Other [facility] Other 08-24-2023 08:30-0500 Respiratory rate 12 /min Jamar Ball Other [facility] Other 08-24-2023 08:30-0500 Systolic blood pressure 125 mm[Hg] Jamar Ball Other [facility] Other 05-30-2023 15:00-0500 Body height 168.91 cm Jamar Ball Other [facility] Other 05-30-2023 15:00-0500 Body mass index (BMI) [Ratio] 32.84 kg/m2 Jamar Ball Other [facility] Other 05-30-2023 15:00-0500 Body weight 93.71 kg Jamar Ball Other [facility] Other 05-30-2023 15:00-0500 Diastolic blood pressure 66 mm[Hg] Jamar Ball Other [facility] Other 05-30-2023 15:00-0500 Respiratory rate 12 /min Jamar Ball Other [facility] Other 05-30-2023 15:00-0500 Systolic blood pressure 141 mm[Hg] Jamar Ball Other [facility] Other 05-01-2023 09:45-0400 Body height 168.91 cm Jamar Ball Other [facility] Other 05-01-2023 09:45-0400 Body mass index (BMI) [Ratio] 32.14 kg/m2 Jamar Ball Other [facility] Other 05-01-2023 09:45-0400 Body weight 91.72 kg Jamar Ball Other [facility] Other 05-01-2023 09:45-0400 Diastolic blood pressure 62 mm[Hg] Jamar Ball Other [facility] Other 05-01-2023 09:45-0400 Respiratory rate 12 /min Jamar Ball Other [facility] Other 05-01-2023 09:45-0400 Systolic blood pressure 129 mm[Hg] Jamar Ball Other [facility] Other 04-27-2023 09:23-0400 Diastolic blood pressure 49 mm[Hg] Christo Howard APRN.[employer] PLANT OPERATOR Work Phone: [facility] 04-27-2023 09:23-0400 Heart rate 50 /min Christo Howard APRN.[employer] OPERATOR Work Phone: [facility] 04-27-2023 09:23-0400 Systolic blood pressure 141 mm[Hg] Christo Howard APRN.RA[employer] PLANT OPERATOR Work Phone: [facility] 04-27-2023 09:20-0400 Body height 167.6 cm Christo Howard APRN.RAILW[employer] TR[employer] PLANT OPERATOR Work Phone: [facility] 04-27-2023 09:20-0400 Body temperature 97 [degF] Christo Howard APRN.RAILWAY TR[employer] PLANT OPERATOR Work Phone: [facility] 04-27-2023 09:20-0400 Body weight 92.53 kg Christo Howard APRN.RAILW[employer] TR[employer] PLANT OPERATOR Work Phone: [facility] 04-27-2023 09:20-0400 Respiratory rate 16 /min Christo Howard APRN.[employer] PLANT OPERATOR Work Phone: [facility] 04-27-2023 09:20-0400 SaO2% (BldA) [Mass fraction] 100 % Christo Howard APRN.[employer]ANT OPERATOR Work Phone: [facility] 04-17-2023 08:45-0400 Blood Pressure Location Anthony SCRUGGS [facility] 04-17-2023 08:45-0400 Diastolic blood pressure 68 mm[Hg] Anthony SCRUGGS [facility] 04-17-2023 08:45-0400 Heart rate 62 /min Anthony SCRUGGS [facility] 04-17-2023 08:45-0400 Respiratory rate 16 /min Anthony SCRUGGS [facility] 04-17-2023 08:45-0400 Systolic blood pressure 130 mm[Hg] Anthony SCRUGGS [facility] 04-05-2023 13:45-0400 Body height 168.91 cm Jamar Ball Other [employer] [facility] Other 04-05-2023 13:45-0400 Body mass index (BMI) [Ratio] 32.46 kg/m2 Jamar Ball Other [facility] Other 04-05-2023 13:45-0400 Body weight 92.63 kg Jamar Ball Other [facility] Other 04-05-2023 13:45-0400 Diastolic blood pressure 67 mm[Hg] Jamar Ball Other [facility] Other 04-05-2023 13:45-0400 Respiratory rate 12 /min Jamar Ball Other [facility] Other 04-05-2023 13:45-0400 Systolic blood pressure 109 mm[Hg] Jamar Ball Other [facility] Other 03-15-2023 08:45-0400 Body height 168.91 cm Jamar Ball Other [facility] Other 03-15-2023 08:45-0400 Body mass index (BMI) [Ratio] 32.81 kg/m2 Jamar Ball Other [facility] Other 03-15-2023 08:45-0400 Body weight 93.62 kg Jamar Ball Other [facility] Other 03-15-2023 08:45-0400 Diastolic blood pressure 69 mm[Hg] Jamar Ball Other [facility] Other 03-15-2023 08:45-0400 Respiratory rate 12 /min Jamar Ball Other [facility] Other 03-15-2023 08:45-0400 Systolic blood pressure 131 mm[Hg] Jamar Ball Other [facility] Other 02-02-2023 09:32-0400 Body height 167.6 cm Marco A Esqueda MD Work Phone: [facility] 02-02-2023 09:32-0400 Body temperature 97.2 [degF] Marco A Esqueda MD Work Phone: [facility] 02-02-2023 09:32-0400 Body weight 96.62 kg Marco A Esqueda MD Work Phone: [facility] 02-02-2023 09:32-0400 Diastolic blood pressure 43 mm[Hg] Marco A Esqueda MD Work Phone: [facility] 02-02-2023 09:32-0400 Heart rate 50 /min Marco A Esqueda MD Work Phone: [facility] 02-02-2023 09:32-0400 Respiratory rate 16 /min Marco A Esqueda MD Work Phone: [facility] 02-02-2023 09:32-0400 SaO2% (BldA) [Mass fraction] 97 % Marco A Esqueda MD Work Phone: [facility] 02-02-2023 09:32-0400 Systolic blood pressure 131 mm[Hg] Marco A Esqueda MD Work Phone: [facility] 11-10-2022 09:30-0400 Body height 167.6 cm Christo Howard SURTASS ANALYST.RA[employer] PLANT OPERATOR Work Phone: [facility] 11-10-2022 09:30-0400 Body temperature 97.11 [degF] Christo Howard SURTASS ANALYST.RAILWAY TRACK PLANT OPERATOR Work Phone: [facility] 11-10-2022 09:30-0400 Body weight 96.44 kg Christo Howard SURTASS ANALYST.RAILWAY TRACK PLANT OPERATOR Work Phone: [facility] 11-10-2022 09:30-0400 Diastolic blood pressure 68 mm[Hg] Christo Howard SURTASS ANALYST.RAILWAY TRACK PLANT OPERATOR Work Phone: [facility] 11-10-2022 09:30-0400 Heart rate 54 /min Christo Howard SURTASS ANALYST.RAILWAY TRACK PLANT OPERATOR Work Phone: [facility] 11-10-2022 09:30-0400 Respiratory rate 16 /min Christo Howard SURTASS ANALYST.RAILWAY TRACK PLANT OPERATOR Work Phone: [facility] 11-10-2022 09:30-0400 SaO2% (BldA) [Mass fraction] 98 % Christo Howard APRN.RAILW[employer] TR[employer] PLANT OPERATOR Work Phone: [facility] 11-10-2022 09:30-0400 Systolic blood pressure 134 mm[Hg] Christo Howard SURTASS ANALYST.RAILWAY TRACK PLANT OPERATOR Work Phone: [facility] 09-16-2022 08:30-0500 Body height 168.91 cm Jamar Ball Other [facility] Other 09-16-2022 08:30-0500 Body mass index (BMI) [Ratio] 33.16 kg/m2 Jamar Ball Other [facility] Other 09-16-2022 08:30-0500 Body weight 94.62 kg Jamar Ball Other [facility] Other 09-16-2022 08:30-0500 Diastolic blood pressure 78 mm[Hg] Jamar Ball Other [facility] Other 09-16-2022 08:30-0500 Respiratory rate 12 /min Jamar Ball Other [facility] Other 09-16-2022 08:30-0500 Systolic blood pressure 116 mm[Hg] Jaamr Ball Other [facility] Other 09-09-2022 08:30-0500 Body height 168.91 cm Jamar Ball Other [facility] Other 09-09-2022 08:30-0500 Body mass index (BMI) [Ratio] 33.45 kg/m2 Jamar Ball Other [facility] Other 09-09-2022 08:30-0500 Body weight 95.44 kg Jamar Ball Other [facility] Other 09-09-2022 08:30-0500 Diastolic blood pressure 76 mm[Hg] Jamar Ball Other [facility] Other 09-09-2022 08:30-0500 Respiratory rate 12 /min Jamar Ball Other [facility] Other 09-09-2022 08:30-0500 Systolic blood pressure 118 mm[Hg] Jamar Ball Other [facility] Other 09-09-2022 07:30-0500 Body height 168.91 cm Jamar Ball Other [facility] Other 09-09-2022 07:30-0500 Body mass index (BMI) [Ratio] 33.45 kg/m2 Jamar Ball Other [facility] Other 09-09-2022 07:30-0500 Body weight 95.44 kg Jamar Ball Other [facility] Other 09-09-2022 07:30-0500 Diastolic blood pressure 76 mm[Hg] Jamar Ball Other [facility] Other 09-09-2022 07:30-0500 Respiratory rate 12 /min Jamar Ball Other [facility] Other 09-09-2022 07:30-0500 Systolic blood pressure 118 mm[Hg] Jamar Ball Other [facility] Other 08-11-2022 09:24-0500 Body height 167.6 cm Marco A Esqueda MD Work Phone: [facility] 08-11-2022 09:24-0500 Body temperature 97 [degF] Marco A Esqueda MD Work Phone: [facility] 08-11-2022 09:24-0500 Body weight 96.44 kg Marco A Esqueda MD Work Phone: [facility] 08-11-2022 09:24-0500 Diastolic blood pressure 56 mm[Hg] Marco A Esqueda MD Work Phone: [facility] 08-11-2022 09:24-0500 Heart rate 53 /min Marco A Esqueda MD Work Phone: [facility] 08-11-2022 09:24-0500 Respiratory rate 16 /min Marco A Esqueda MD Work Phone: [facility] 08-11-2022 09:24-0500 SaO2% (BldA) [Mass fraction] 97 % Marco A Esqueda MD Work Phone: [facility] 08-11-2022 09:24-0500 Systolic blood pressure 129 mm[Hg] Marco A Esqueda MD Work Phone: [facility] 07-21-2022 15:30-0500 Body height 168.91 cm Jamar Ball Other [facility] Other 07-21-2022 15:30-0500 Body mass index (BMI) [Ratio] 34.18 kg/m2 Jamar Ball Other [facility] Other 07-21-2022 15:30-0500 Body weight 97.52 kg Jamar Ball Other [facility] Other 07-21-2022 15:30-0500 Diastolic blood pressure 76 mm[Hg] Jamar Ball Other [facility] Other 07-21-2022 15:30-0500 Respiratory rate 16 /min Jamar Ball Other [facility] Other 07-21-2022 15:30-0500 Systolic blood pressure 118 mm[Hg] Jamar Ball Other [facility] Other 05-13-2022 09:07-0400 Blood Pressure Location Anthony [facility] 05-13-2022 09:07-0400 Diastolic blood pressure 72 mm[Hg] Anthony [facility]S [facility] 05-13-2022 09:07-0400 Heart rate 55 /min Anthony [facility] 05-13-2022 09:07-0400 Respiratory rate 16 /min Anthony [facility] 05-13-2022 09:07-0400 Systolic blood pressure 108 mm[Hg] Anthony [facility] 05-12-2022 10:41-0400 Body temperature 97.81 [degF] LUAN Khan MD Work Phone: [facility] 05-12-2022 10:41-0400 Body weight 95.07 kg LUAN Kahn MD Work Phone: [facility] 05-12-2022 10:41-0400 Diastolic blood pressure 42 mm[Hg] LUAN Khan MD Work Phone: [facility] 05-12-2022 10:41-0400 Heart rate 51 /min LUAN Khan MD Work Phone: [facility] 05-12-2022 10:41-0400 Respiratory rate 18 /min LUAN Khan MD Work Phone: [facility] 05-12-2022 10:41-0400 SaO2% (BldA) [Mass fraction] 99 % LUAN Khan MD Work Phone: [facility] 05-12-2022 10:41-0400 Systolic blood pressure 134 mm[Hg] LUAN Khan MD Work Phone: [facility] 02-17-2022 09:36-0400 Body height 167.6 cm Marco A Esqueda MD Work Phone: [facility] 02-17-2022 09:36-0400 Body temperature 97.9 [degF] Marco A Esqueda MD Work Phone: [facility] 02-17-2022 09:36-0400 Body weight 97.07 kg Marco A Esqueda MD Work Phone: [facility] 02-17-2022 09:36-0400 Diastolic blood pressure 58 mm[Hg] Marco A Esqueda MD Work Phone: [facility] 02-17-2022 09:36-0400 Heart rate 63 /min Marco A Esqueda MD Work Phone: [facility] 02-17-2022 09:36-0400 Respiratory rate 16 /min Marco A Esqueda MD Work Phone: [facility] 02-17-2022 09:36-0400 SaO2% (BldA) [Mass fraction] 99 % Marco A Esqueda MD Work Phone: [facility] 02-17-2022 09:36-0400 Systolic blood pressure 133 mm[Hg] Marco A Esqueda MD Work Phone: [facility] 11-18-2021 10:50-0400 Body temperature 97.7 [degF] [facility] Work Phone: [facility] 11-18-2021 10:50-0400 Diastolic blood pressure 63 mm[Hg] [facility] Work Phone: [facility] 11-18-2021 10:50-0400 Heart rate 60 /min [facility] [place] Work Phone: [facility] 11-18-2021 10:50-0400 Respiratory rate 18 /min [facility] [place] Work Phone: [facility] 11-18-2021 10:50-0400 SaO2% (BldA) [Mass fraction] 95 % [facility] [place] Work Phone: [facility] 11-18-2021 10:50-0400 Systolic blood pressure 139 mm[Hg] [facility] [place] Work Phone: [facility] 11-11-2021 13:58-0400 Body height 167.6 cm Marco A Esqueda MD Work Phone: [facility] 11-11-2021 13:58-0400 Body temperature 97.39 [degF] Marco A Esqueda MD Work Phone: [facility] 11-11-2021 13:58-0400 Body weight 98.97 kg Marco A Esqueda MD Work Phone: [facility] 11-11-2021 13:58-0400 Diastolic blood pressure 54 mm[Hg] Marco A Esqueda MD Work Phone: [facility] 11-11-2021 13:58-0400 Heart rate 68 /min Marco A Esqueda MD Work Phone: [facility] 11-11-2021 13:58-0400 Respiratory rate 16 /min Marco A Esqueda MD Work Phone: [facility] 11-11-2021 13:58-0400 SaO2% (BldA) [Mass fraction] 98 % Marco A Esqueda MD Work Phone: [facility] 11-11-2021 13:58-0400 Systolic blood pressure 130 mm[Hg] Marco A Esqueda MD Work Phone: [facility] 11-08-2021 13:03-0400 Blood Pressure Location Anthony [facility] 11-08-2021 13:03-0400 Diastolic blood pressure 60 mm[Hg] Anthony [facility] 11-08-2021 13:03-0400 Heart rate 61 /min Anthony [facility] 11-08-2021 13:03-0400 Systolic blood pressure 135 mm[Hg] Anthony [facility] Encounters Encounter Date Encounter Type Care Provider Facility Start: 10-20-2023 ambulatory Anthony Avalos ty:[facility] Start: 08-28-[address] 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 Work Phone: [facility] Start: 08-28-[address] 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 Work Phone: [facility] Start: 08-28-2023 End: 08-28-2023 ambulatory LONG BOO Not Available Start: 08-28-2023 End: 08-28-2023 Patient encounter procedure Long Boo 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 Work Phone: [facility] Comment on above: Neoplasm of unspecif ied behavior of bone, soft tissue, and skin; Actinic keratosis Start: 08-24-2023 End: 08-24-2023 ambulatory Jamar Fall Other [facility] Other Start: 08-24-2023 Patient encounter procedure Jamar MENDIETA [facility] Start: 08-04-2023 End: 08-04-2023 ambulatory Jamar Fall Other [facility] Other Start: 08-04-2023 Telephone encounter Jamar Serrano [facility] Start: 08-03-2023 End: 08-03-2023 ambulatory JAMAR FALL Facility:[facility] Start: 07-27-2023 End: 07-27-2023 ambulatory JAMAR FALL Facility:[facility] Start: 06-22-2023 End: 06-22-2023 ambulatory AB [facility] Start: 06-05-2023 Telephone encounter Jmaar Serrano [facility] Start: 06-05-2023 End: 06-05-2023 ambulatory EMELINA LOUIS [facility] Other Start: 05-30-2023 End: 05-30-2023 ambulatory Jamar Fall Other [facility] Other Start: 05-30-2023 Office outpatient vi sit 15 minutes Jamar MENDIETA [facility] Start: 05-01-2023 End: 05-01-2023 ambulatory Jamar Fall Other [facility] Other Start: 05-01-2023 Office outpatient vi sit 15 minutes Jamar Fall [facility] Start: 04-27-2023 Telephone encounter Jamar EDMONDS 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 Start: 04-24-2023 End: 04-24-2023 ambulatory JAMAR FALL Facility:[facility] Start: 04-18-2023 End: 04-18-2023 ambulatory Jamar Fall Other [facility] Other Start: 04-18-2023 Telephone encounter Jamar Serrano [facility] Start: 04-17-2023 End: 04-18-2023 ambulatory Anthony SCRUGGS Facility:[facility] Start: 04-17-2023 End: 04-17-2023 Patient encounter procedure Anthony [facility]CRUGGS [facility] Start: 04-12-2023 End: 04-12-2023 ambulatory Jamar Ball Other [facility] Other Start: 04-12-2023 Telephone encounter Jamar Fall [facility] Start: 04-06-2023 End: 04-06-2023 ambulatory Jamar Ball Other [facility] Other Start: 04-06-2023 Telephone encounter Jamar Fall [facility] Start: 04-05-2023 End: 04-05-2023 ambulatory Jamar Juan David Other [facility] Other Start: 04-05-2023 Office outpatient vi sit 15 minutes Jamar Ball [facility] Start: 04-05-2023 Telephone encounter Jamar Fall [facility] Start: 03-15-2023 End: 03-15-2023 ambulatory Jamar Juan David Other [facility] Other Start: 03-15-2023 Office outpatient vi sit 25 minutes Jamar Fall [facility] Start: 02-05-2023 End: 02-05-2023 ambulatory Jamar Fall Other [facility] Other Start: 02-05-2023 Telephone encounter Jamar Fall [facility] Start: 02-02-2023 End: 02-02-2023 ambulatory [facility] [place] Work Phone: Hematology/Oncology Comment on above: Malignant neoplasm o f prostate (HCC) (Primary Dx) Start: 02-02-2023 End: 02-02-2023 Patient encounter procedure Marco A Esqueda MD Work Phone: [place] Start: 11-15-2022 End: 11-15-2022 ambulatory Jamar Fall Other [facility] Other Start: 11-15-2022 Encounter by mannie pavon Jamar Fall [facility] Start: 11-11-2022 End: 11-11-2022 ambulatory Jamar Fall Other [facility] Other Start: 11-11-2022 Encounter by mannie Fall 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 Facility: Start: 09-16-2022 End: 09-16-2022 ambulatory Jamar Fall Other [facility] Other Start: 09-16-2022 Office outpatient vi sit 15 minutes Jamar Fall [facility] Start: 09-09-2022 End: 09-09-2022 ambulatory Jamar Fall Other [facility] Other Start: 09-09-2022 Patient encounter procedure Jamar Fall 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 Start: 07-21-2022 Patient encounter procedure Jamar Fall [facility] Start: 07-21-2022 Telephone encounter Jamar Fall [facility] Start: 05-27-2022 End: 05-28-[address] DE LISTED REQUEST Facility: Start: 05-13-2022 End: 05-14-2022 ambulatory Anthony SCRUGGS Facility:[facility] Start: 05-13-2022 End: 05-13-2022 Patient encounter procedure Anthony SCRUGGS [facility] Start: 05-12-2022 End: 05-12-2022 Patient encounter procedure Zach Khan MD Work Phone: Radiation Oncology Comment on above: Malignant neoplasm o f prostate (HCC) (Primary Dx) Start: 05-12-2022 End: 05-12-2022 ambulatory [facility] [place] Work Phone: Hematology/Oncology Comment on above: Malignant neoplasm o f prostate (HCC) (Primary Dx) Start: 05-05-2022 End: 05-06-[address] ANTHONY SCRUGGS . Facility:[facility] Start: 05-02-2022 Telephone encounter Christo goldberg APRN.CNP Work Phone: Hematology/Oncology Comment on above: Lab Orders Start: 04-27-2022 End: 04-28-2022 ambulatory LORA ENGLISH Facility:[facility] Start: 02-17-2022 End: 02-17-2022 ambulatory Marco A Esqueda MD Work Phone: Hematology/Oncology Comment on above: Malignant neoplasm o f prostate (HCC) (Primary Dx); Bone metastasis (HCC) Start: 02-17-2022 End: 02-17-2022 Patient encounter procedure Marco A Esqueda MD Work Phone: [place] Start: 01-25-2022 End: 01-26-2022 ambulatory NONE LISTED REQUEST Facility:[facility] Start: 12-06-2021 Telephone encounter Clementine steinberg RN Work Phone: Hematology/Oncology Comment on above: Care Coordination (R efill Question) Start: 11-18-2021 End: 11-18-2021 ambulatory [facility] [place] Work Phone: Hematology/Oncology Comment on above: Malignant neoplasm o f prostate (HCC) (Primary Dx) Start: 11-11-2021 End: 11-11-2021 ambulatory Marco A Esqueda MD Work Phone: Hematology/Oncology Comment on above: Malignant neoplasm o f prostate (HCC) (Primary Dx); Bone metastasis (HCC) Start: 11-11-2021 End: 11-11-2021 Patient encounter procedure Marco A Esqueda MD Work Phone: [place] Start: 11-10-2021 Telephone encounter Clementine steinberg RN Work Phone: Hematology/Oncology Comment on above: Care Coordination (M edication Update) Start: 11-09-2021 Telephone encounter Clementine steinberg RN Work Phone: Hematology/Oncology Comment on above: Care Coordination (M edication Start Date - Enzalutamide) Start: 11-08-2021 End: 11-08-2021 Patient encounter procedure Anthony SCRUGGS [facility] Start: 11-05-2021 End: 11-06-[address] MARCO A ESQUEDA Facility:[facility] Start: 11-04-2021 ambulatory Clementine lee RN Work Phone: Hematology/Oncology Comment on above: Oral Anti-cancer Age nt Education (Enzalutamide) Start: 11-04-2021 Telephone encounter Aida Coles [facility] Work Phone: Hematology/Oncology Comment on above: Medication Update (X tandi free drug) Care Coordination (C ovid Vaccine) Start: 11-02-2021 Telephone encounter Marco A carrington MD Work Phone: Hematology/Oncology Comment on above: Lab Orders Start: 10-29-2021 Telephone encounter Clementine steinberg RN Work Phone: Hematology/Oncology Comment on above: Care Coordination (T estosterone Results) Start: 10-28-2021 Telephone encounter Clementine steinberg RN Work Phone: Hematology/Oncology Comment on above: Medication Question (Lupron Start Date) Opened In Error Medication Authoriza tion (Xtandi) Start: 10-25-2021 Chart abstracting Marco A hyatt MD Work Phone: Hematology/Oncology Start: 10-25-2021 Telephone encounter Marco A carrington MD Work Phone: Hematology/Oncology Comment on above: Lab Orders Start: 07-22-2021 Adult health examination Bam Fall Other [facility] [employer] Other Procedures Date Procedure Procedure Detail Performing Clinician Start: 08-28-2023 CRYOTHERAPY SKIN LESION Long Iraj Boo 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 Work Phone: Start: 08-28-2023 SKIN / NAIL BIOPSY [place] lie Iraj Boo 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 Work Phone: Start: 10-25-[address] JESE FALL Comment on above: Performed By: #### P SAD #### [facility] [address] [place], [place] [address] Dr. Bharati Aguiar Start: 05-05-[address] JESE FALL Comment on above: Performed By: #### P SAD ####[facility] [id number] [place], [place] [address]VqDr. Bharati Aguiar Start: 02-16-2022 Adult depression scr eening assessment Marco A Esqueda MD Work Phone: Start: 11-10-2021 Adult depression scr eening assessment Clementine Aguilar RN Work Phone: Start: 05-03-2021 Adult depression scr eening assessment Marco A Esqueda MD Work Phone: Start: 03-30-2018 Teleradiotherapy procedure Anthony SCRUGGS Comment on above: Started on 01/2018 co mpleted 03/30/18 Start: 10-20-2015 Cystoscopy Anthony CHAVEZ Start: 07-04-2015 Screening for malign ant neoplasm of colon Jamar Fall Other Start: 11-05-2014 Radical prostatectomy Ruperto gen SCRUGGS Start: 08-25-2014 Pre-surgery evaluation Jamar Fall Other Start: 08-25-2014 Preoperative cardiov ascular examination Jamar Fall Other Start: 08-17-2014 Coronary artery bypass graft Anthonycindy SCRUGGS Start: 07-02-2014 Transrectal biopsy o f prostate using ultrasound guidance Anthonycindy SCRUGGS Start: 01-09-2007 Urodynamic studies Pancho SCRUGGS Start: 03-27-2006 Cystoscopy Anthony CHAVEZ Start: 08-26-2005 Cystoscopy Anthony SIEGEL MELYEricka Start: 09-02-2002 Cystoscopy Anthony CHAVEZ Appendectomy Anthonycindy SCRUGGS Colonoscopy Anthonycindy SCRUGGS Depression screening Reddy Fall Other Plan of Treatment Date Care Activity Detail Author Start: 04-24-2026 Diabetes Screening Diabetes Screening [facility] Start: 02-02-2026 DIABETES SCREEN DIABETES SCREEN [facility] Start: 11-10-2025 DIABETES SCREEN DIABETES SCREEN [facility] Start: 08-11-2025 DIABETES SCREEN DIABETES SCREEN [facility] Start: 05-12-2025 DIABETES SCREEN DIABETES SCREEN [facility] Start: 02-17-2025 DIABETES SCREEN DIABETES SCREEN [facility] Start: 11-11-2024 DIABETES SCREEN DIABETES SCREEN [facility] Start: 02-26-2024 End: 02-26-2024 Patient encounter procedure 02/26/2024 10:10 AM EDT Office Visit [facility] [address] [place] [id number] Long Boo, 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 [address] [place] [address] [facility] Start: 08-28-2023 End: 08-28-2023 Patient encounter procedure 08/28/2023 11:25 AM EST Office Visit [facility] [address] [place] [id number] Long Boo, 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 [address] [place] [address] Arrived [facility] Comment on above: Arrived Start: 07-28-2023 End: 09-27-2023 CBC W Auto Differential panel - Blood CBC + DIFF Lab Routine Malignant neoplasm of prostate (HCC) 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, unspecified vessel or lesion type Essential hypertension Type 2 diabetes mellitus without complication, without long-term current use of insulin (HCC) Expected: 07/28/2023, Expires: 09/27/2023 [facility] Work Phone: Comment on above: Expected: 07/28/2023, Expires: Start: 07-28-2023 End: 09-27-2023 Comprehensive metabolic 2000 panel - Serum or Plasma COMP METABOLIC PANEL Lab Routine Malignant neoplasm of prostate (HCC) 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, unspecified vessel or lesion type Essential hypertension Type 2 diabetes mellitus without complication, without long-term current use of insulin (HCC) Expected: 07/28/2023, Expires: 09/27/2023 [facility] Work Phone: Comment on above: Expected: 07/28/2023, Expires: Start: 07-28-2023 End: 09-27-2023 Prostate specific Ag [Mass/volume] in Serum or Plasma PSA/PROSTSPECAG DIAG Lab Routine Malignant neoplasm of prostate (HCC) 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, unspecified vessel or lesion type Essential hypertension Type 2 diabetes mellitus without complication, without long-term current use of insulin (HCC) Expected: 07/28/2023, Expires: 09/27/2023 [facility] Work Phone: Comment on above: Expected: 07/28/2023, Expires: Start: 06-19-2023 Urine microalbumin profile [facility] Start: 05-03-2023 End: 07-03-2023 Basic metabolic 2000 panel - Serum or Plasma BASIC METABOLIC PNL Lab Routine Malignant neoplasm of prostate (HCC) Expected: 05/03/2023 (Approximate), Expires: 07/03/2023 [facility] Work Phone: Comment on above: Expected: 05/03/2023 (Approximate), Expi res: 07/03/2023 Start: 05-03-2023 End: 07-03-2023 CBC W Auto Differential panel - Blood CBC + DIFF Lab Routine Malignant neoplasm of prostate (HCC) Expected: 05/03/2023 (Approximate), Expires: 07/03/2023 [facility] Work Phone: Comment on above: Expected: 05/03/2023 (Approximate), Expi res: 07/03/2023 Start: 05-03-2023 End: 07-03-2023 Prostate specific Ag [Mass/volume] in Serum or Plasma PSA/PROSTSPECAG DIAG Lab Routine Malignant neoplasm of prostate (HCC) Expected: 05/03/2023 (Approximate), Expires: 07/03/2023 [facility] Work Phone: Comment on above: Expected: 05/03/2023 (Approximate), Expi res: 07/03/2023 Start: 05-03-2023 End: 07-03-2023 Testosterone [Mass/volume] in Serum or Plasma TESTOSTERONE TOTAL Lab Routine Malignant neoplasm of prostate (HCC) Expected: 05/03/2023 (Approximate), Expires: 07/03/2023 [facility] Work Phone: Comment on above: Expected: 05/03/2023 (Approximate), Expi res: 07/03/2023 Start: 03-17-2023 Covid-19 Vaccine () Covid-19 Vaccine () [facility] Start: 03-17-2023 Influenza vaccination [facility] Start: 02-16-2023 Adult depression screening assessment DEPRESSION SCREENING [facility] Start: 02-09-2023 End: 04-11-2023 CBC W Auto Differential panel - Blood CBC + DIFF Lab Routine Malignant neoplasm of prostate (HCC) 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, unspecified vessel or lesion type Essential hypertension Type 2 diabetes mellitus without complication, without long-term current use of insulin (HCC) Expected: 02/09/2023, Expires: 04/11/2023 [facility] Work Phone: Comment on above: Expected: 02/09/2023, Expires: Start: 02-09-2023 End: 04-11-2023 Comprehensive metabolic 2000 panel - Serum or Plasma COMP METABOLIC PANEL Lab Routine Malignant neoplasm of prostate (HCC) 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, unspecified vessel or lesion type Essential hypertension Type 2 diabetes mellitus without complication, without long-term current use of insulin (HCC) Expected: 02/09/2023, Expires: 04/11/2023 [facility] Work Phone: Comment on above: Expected: 02/09/2023, Expires: Start: 02-09-2023 End: 04-11-2023 Prostate specific Ag [Mass/volume] in Serum or Plasma PSA/PROSTSPECAG DIAG Lab Routine Malignant neoplasm of prostate (HCC) 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, unspecified vessel or lesion type Essential hypertension Type 2 diabetes mellitus without complication, without long-term current use of insulin (HCC) Expected: 02/09/2023, Expires: 04/11/2023 [facility] Work Phone: Comment on above: Expected: 02/09/2023, Expires: 3 Start: 11-10-2022 Adult depression screening assessment DEPRESSION SCREENING [facility] Start: 08-22-2022 COVID-19 VACCINE (6 - Moderna series) COVID-19 VACCINE (6 - Moderna series) [facility] Start: 07-17-2022 ADVANCE DIRECTIVE DISCUSSION ADVANCE DIRECTIVE DISCUSSION [facility] Start: 07-17-2022 DEPRESSION ASSESSMENT DEPRESSION ASSESSMENT [facility] Start: 05-03-2022 Adult depression screening assessment DEPRESSION SCREENING [facility] Start: 05-03-2022 End: 07-03-2022 CBC W Auto Differential panel - Blood CBC + DIFF Lab Routine Malignant neoplasm of prostate (HCC) Expected: 05/03/2022, Expires: 07/03/2022 [facility] Work Phone: Comment on above: Expected: 05/03/2022, Expires: 2 Start: 05-03-2022 End: 07-03-2022 Comprehensive metabolic 2000 panel - Serum or Plasma COMP METABOLIC PANEL Lab Routine Malignant neoplasm of prostate (HCC) Expected: 05/03/2022, Expires: 07/03/2022 [facility] Work Phone: Comment on above: Expected: 05/03/2022, Expires: 2 Start: 05-03-2022 End: 07-03-2022 Prostate specific Ag [Mass/volume] in Serum or Plasma PSA/PROSTSPECAG DIAG Lab Routine Malignant neoplasm of prostate (HCC) Expected: 05/03/2022, Expires: 07/03/2022 [facility] Work Phone: Comment on above: Expected: 05/03/2022, Expires: 2 Start: 03-17-2022 Influenza vaccination [facility] Start: 11-02-2021 End: 01-02-2022 CBC W Auto Differential panel - Blood CBC + DIFF Lab Routine Malignant neoplasm of prostate (HCC) Expected: 11/02/2021, Expires: 01/02/2022 [facility] Work Phone: Comment on above: Expected: 11/02/2021, Expires: 2 Start: 11-02-2021 End: 01-02-2022 Comprehensive metabolic 2000 panel - Serum or Plasma COMP METABOLIC PANEL Lab Routine Malignant neoplasm of prostate (HCC) Expected: 11/02/2021, Expires: 01/02/2022 [facility] Work Phone: Comment on above: Expected: 11/02/2021, Expires: 2 Start: 09-14-2021 COVID-19 VACCINE (5 - Booster) COVID-19 VACCINE (5 - Booster) [facility] Start: 08-17-2021 COVID-19 VACCINE (4 - Booster for Moderna series) COVID-19 VACCINE (4 - Booster for Moderna series) [facility] Start: 07-17-2021 ADVANCE DIRECTIVE DISCUSSION ADVANCE DIRECTIVE DISCUSSION [facility] Start: 07-17-2021 DEPRESSION ASSESSMENT DEPRESSION ASSESSMENT [facility] Start: 02-22-2021 COVID-19 VACCINE (3 - Booster for Moderna series) COVID-19 VACCINE (3 - Booster for Moderna series) [facility] Start: 06-07-2015 PNEUMOVAX AGE 65 AND OVER WITH 5YR LOOKBACK (#1) PNEUMOVAX AGE 65 AND OVER WITH 5YR LOOKBACK (#1) [facility] Start: 06-20-2013 Urine microalbumin profile DTAP,TDAP,TD (1 - Tdap) [facility] Start: 08-22-2012 SHINGRIX VACCINE (2 of 3) SHINGRIX VACCINE (2 of 3) [facility] Start: 02-14-1996 SHINGRIX VACCINE (1 of 2) SHINGRIX VACCINE (1 of 2) [facility] Start: 1991 COLOGUARD (FIT-DNA) COLOGUARD (FIT-DNA) [facility] Start: 1991 Colonoscopy COLONOSCOPY [facility] Start: 1991 COLORECTAL CANCER SCREENING COLORECTAL CANCER SCREENING [facility] Start: [address] COLONOGRAPHY [facility] Start: 1991 DIABETES SCREEN DIABETES SCREEN [facility] Start: 1991 FECAL OCCULT BLOOD FECAL OCCULT BLOOD [facility] Start: 1991 SIGMOIDOSCOPY SIGMOIDOSCOPY [facility] Start: 1981 LIPID SCREEN LIPID SCREEN [facility] Start: 02-14-1964 HEPATITIS C SCREENING HEPATITIS C SCREENING [facility] Dermatopathology exam Dermatopat hology exam Pathology and Cytology Timed Neoplasm of unspecified behavior of bone, soft tissue, and skin Release Upon Ordering for 1 Occurrences starting 08/28/2023 [facility] Work Phone: Comment on above: Release Upon Ordering for 1 Occurrences starting 08/28/2023 [facility] Immunizations Immunization Date Immunization Notes Care Provider Iris snider 05-01-2023 influenza, high dose seasonal, preservative-free Jamar Fall Other [facility] Other 04-28-2022 influenza, high-dose , quadrivalent vaccine (FLUZONE HIGH DOSE QUADRIVALENT) [facility] Work Phone: [facility] 04-28-2022 influenza, high dose seasonal, preservative-free Jamar Fall Other [facility] 04-28-2022 influenza virus vaccine, unspecified formulation [facility] Work Phone: [facility] 04-21-2022 COVID-19 booster vaccine, age 12+ yr, bivalent (MODERNA) [facility] Work Phone: [facility] 01-21-2022 COVID-19 Vaccine Moderna - Documentation Purposes Only Jamar Fall Other [facility] 05-17-2021 COVID-19 Vaccine Moderna - Documentation Purposes Only Jamar Fall Other [facility] 04-22-2021 influenza virus vaccine, split virus (incl. purified surface antigen) Jamar Fall Other [employer] [facility] [employer] Other 04-16-2021 influenza nasal, unspecified formulation Marco A Esqueda MD Work Phone: [facility] 04-16-2021 influenza virus vaccine, unspecified formulation Anthony SCRUGGS [facility] 09-22-2020 COVID-19 Vaccine Moderna - Documentation Purposes Only Jamar Fall Other [facility] 08-26-2020 SARS-CoV-2 (COVID-19 ) Ad26 vaccine, recombinant Anthonycindy SCRUGGS [facility] 08-24-2020 COVID-19 original vaccine, full dose, monovalent (MODERNA) [facility] Work Phone: [facility] 07-17-2020 SARS-CoV-2 (COVID-19 ) mRNA-1273 vaccine Anthony SCRUGGS [facility] Comment on above: Result Comment: pt d oes not know the dates but states that he is fully vaccinated 04-23-2020 influenza virus vaccine, split virus (incl. purified surface antigen) Jamar Fall Other [employer] [facility] [employer] Other 04-22-2019 influenza virus vaccine, split virus (incl. purified surface antigen) Jamar Juan David Other [facility] Other 04-16-2019 influenza nasal, unspecified formulation Marco A Esqueda MD Work Phone: [facility] 08-20-2018 zoster vaccine recombinant Marco A Esqueda MD Work Phone: [facility] 06-11-2018 zoster vaccine recombinant Marco A Esqueda MD Work Phone: [facility] 04-16-2018 influenza nasal, unspecified formulation Marco A Esqueda MD Work Phone: [facility] 03-27-2018 AS03 adjuvant [facility] Work Phone: [facility] 03-27-2018 influenza virus vaccine, split virus (incl. purified surface antigen) Jamar Fall Other [employer] [facility] [employer] Other 03-27-2018 Seasonal trivalent influenza vaccine, adjuvanted, preservative free Marco A Esqueda MD Work Phone: [facility] 06-12-2017 pneumococcal polysaccharide vaccine, 23 valent Marco A Esqueda MD Work Phone: [facility] 06-01-2017 pneumococcal polysaccharide vaccine, 23 valent Jamar Fall Other [facility] 06-01-2017 Prevnar 20 Jamar Fall Other [employer] [facility] [employer] Other 05-31-2017 influenza, injectabl e, quadrivalent, preservative free Marco A Esqueda MD Work Phone: [facility] 04-03-2017 influenza virus vaccine, split virus (incl. purified surface antigen) Jamar Fall Other [facility] [employer] Other 04-03-2017 influenza, high dose seasonal, preservative-free Marco A Esqueda MD Work Phone: [facility] 03-23-2017 influenza nasal, unspecified formulation Marco A Esqueda MD Work Phone: [facility] 04-01-2016 influenza virus vaccine, split virus (incl. purified surface antigen) Jamar Fall Other [facility] [employer] Other 03-31-2016 influenza nasal, unspecified formulation Marco A Esqueda MD Work Phone: [facility] 05-11-2015 influenza nasal, unspecified formulation Marco A Esqueda MD Work Phone: [facility] 05-11-2015 pneumococcal conjuga te vaccine, 13 valent Marco A Esqueda MD Work Phone: [facility] 04-29-2015 pneumococcal polysaccharide vaccine, 23 valent Marco A Esqueda MD Work Phone: [facility] 06-09-2014 influenza, seasonal, injectable, preservative free Marco A Esqueda MD Work Phone: [facility] 06-19-2013 diphtheria, tetanus toxoids and acellular pertussis vaccine, unspecified formulation Marco A Esqueda MD Work Phone: [facility] 06-19-2013 tetanus and diphther ia toxoids, not adsorbed, for adult use Marco A Esqueda MD Work Phone: [facility] 05-23-2013 influenza nasal, unspecified formulation Marco A Esqueda MD Work Phone: [facility] 04-24-2013 tetanus and diphther ia toxoids, adsorbed, preservative free, for adult use (5 Lf of tetanus toxoid and 2 Lf of diphtheria toxoid) Jamar Fall Other [facility] Other 06-27-2012 zoster vaccine, live Marco A lake MD Work Phone: [facility] 06-11-2012 influenza nasal, unspecified formulation Marco A Esqueda MD Work Phone: [facility] 06-02-2011 influenza nasal, unspecified formulation Marco A Esqueda MD Work Phone: [facility] 06-23-2010 pneumococcal polysaccharide vaccine, 23 valent Jamar Fall Other [facility] Other 06-07-2010 pneumococcal polysaccharide vaccine, 23 valent Marco A Esqueda MD Work Phone: [facility] 06-07-2010 pneumococcal vaccine , unspecified formulation Marco A Esqueda MD Work Phone: [facility] 05-28-2010 influenza nasal, unspecified formulation Marco A Esqueda MD Work Phone: [facility] 01-14-2010 pneumococcal polysaccharide vaccine, 23 valent Jamar Fall Other [facility] Other 05-25-2009 influenza nasal, unspecified formulation Marco A Esqueda MD Work Phone: [facility] 06-09-2008 influenza nasal, unspecified formulation Maroc A Esqueda MD Work Phone: [facility] 07-23-2003 influenza virus vaccine, whole virus Marco A Esqueda MD Work Phone: [facility] 01-14-2003 diphtheria, tetanus toxoids and acellular pertussis vaccine, unspecified formulation Jamar Ball Other [facility] Other 01-10-2003 TD(adult) unspecifie d formulation Marco A Esqueda MD Work Phone: [facility] 07-03-2002 influenza nasal, unspecified formulation Marco A Esqueda MD Work Phone: [facility] Payers Date Payer Category Payer Unknown MMO MMO MEDICARE SUPPLEMENT [id number] 2019-Present [phone] [address] [place] [address] Indemnity [id number] 2019 Unknown [id number] 2011 Medicare MEDICARE MEDICAR E A AND B [id number] 2011-Present [phone] [address] [address] [place] [address] Medicare [id number] 2011 Medicare [id number] 1959 Medicare [id number] 1959 Self-pay 1959 Unknown [id number] 1946 Unknown [id number] 1946 Unknown [id number] 1946 Unknown [id number] 1946 Unknown [id number] 1946 Unknown [id number] 1946 Unknown [id number] 1946 Unknown [id number] 1946 Unknown [id number] 1946 Unknown [id number] 1946 Unknown [id number] 1946 Unknown [id number] Unknown [id number] Unknown [id number] Unknown [id number] Social History Date Type Detail Facility Start: 11-08-2021 End: 06-04-2023 Tobacco smoking status NHIS Never smoked tobacco [facility] Start: 10-25-2021 End: 08-28-2023 Alcohol intake Current drinker of alcohol (finding) [facility] Start: 08-19-2014 History SDOH Alcohol Comment 1 day/wk [facility] Start: 1945 Sex Assigned At Not on file C [facility] Start: 10-18-2021 End: 05-12-2022 Exposure to SARS-CoV-2 (event) Not sure [facility] Tobacco smoking status Never [facility] Start: 02-02-2023 End: 08-28-2023 Sex Assigned At Male [facility] Start: 1945 Sex Assigned At Male C [facility] Start: 01-12-2018 End: 06-04-2023 Tobacco use and exposure Smokeless tobacco non-user [facility] Start: 02-02-2023 End: 08-28-2023 History of Social function [facility] Start: 02-11-2022 Gender identity Identifies as male gender (finding) [facility] Start: 02-11-2022 Sexual orientation Heterosexual (fin irish) [facility] How often to you hav e a drink containing alcohol? 2-3 time sa week [facility] How many standard drinks containing alcohol do you have on a typical day? 1 or 2 [facility] How often do you hav e 6 or more drinks on 1 occasion? Never [facility] Start: 06-04-2023 Alcohol Comment caffeine intak e: more than 4 cups per day [facility] NEGATED: Highlighted rowStart: CARISSAF History of tobacco use Passive smoker [facility] Medical Equipment Procedure Code Equipment Code Equipment Origin al Text Equipment Identifier Dates Start: 10-26-2021 End: 05-12-2022 Comment on above: 1 Each once daily. T o test blood sugars 1 Each once daily. T o test blood sugar Functional Status Date Assessment Result Facility 04-17-2023 Functional Status N/A [facility] 05-13-2022 Functional Status N/A [facility] Clinical Notes 10-25-2021 to 08-28-2023 [employer], [employer] - 08/28/2023 11:25 AM EST Note Date & Type Note Facility 08-28-2023 History of Presen t illness Narrative Images from the original note were not included. Lesion(s) Location: right ear Duration: couple years Quality: painful, denies itch, denies bleeding Modifying factors: aggravated by picking Associated symptoms: enlarged, non-healing Treatments: none New patient, referred by Lencho Esqueda MD All pertinent medical history, medications, and allergies were reviewed. General Exam: alert , oriented to person, place, and time , normal affect Unaccompanied A focused exam completed based on patient reported problems, see below: 1. Neoplasm of unspecified behavior of bone, soft tissue, and skin Right Ear Hyperkeratotic papule Lesion biopsy Type of biopsy: tangential Informed consent: discussed and consent obtained Informed consent comment: The risks and benefits of the biopsy were discussed. Risks include but are not limited to bleeding, infection, scarring, pain, and nerve damage. An opportunity to ask questions prior to the procedure was permitted and all questions were answered. Patient was prepped and draped in usual sterile fashion: area cleansed with alcohol. Anesthesia: the lesion was anesthetized in a standard fashion Anesthetic: 1% lidocaine w/ epinephrine 1-100,000 buffered w/ 8.4% NaHCO3 Instrument used: DermaBlade Hemostasis achieved with: electrodesiccation Outcome: patient tolerated procedure well Outcome comment: The specimen was placed in a prelabeled formalin container to be sent for pathology Post-procedure details: sterile dressing applied and wound care instructions given Post-procedure details comment: Emphasized need to contact clinic for any signs of infection, uncontrollable bleeding, or complications. Dressing type: bandage Additional details: Photo taken yes Amount of lidocaine used: 0.5 cc Specimen A - Dermatopathology exam Differential Diagnosis: AK vs. SCC Check Margins: No Size of lesion: 0.7 x 0.5 cm 2. Actinic keratosis (3) Right Ear (3) Erythematous scaly papules Patient was counseled regarding these sun-induced growths that can develop into squamous cell carcinoma if left untreated. Discussed treatment with cryotherapy. It was emphasized that any treated lesions that fail to resolve should be re-evaluated. Cryotherapy performed today; see procedure note Diagnosis: Actinic keratosis Indication: Precancerous Location: see skin exam Consent: Verbal consent was obtained and risks were discussed, including, but not limited to risks of scarring, darker or emergency department director pigmentary changes, recurrence, incomplete removal and infection. Method: Liquid nitrogen was used to treat the lesion(s) with two 5-10 second freeze-thaw cycles. Number of lesions treated: 3 Post-procedure instructions: Instructions were given orally and in writing. The office will be contacted if the lesion fails to resolve despite treatment, or if a side effect develops such as abnormal crusting, scabbing, redness or tenderness Patient elected for treatment with Efudex. Educated on Efudex treatment. Apply to Forehead, Temples, Cheeks, Ears, and Backs of hands twice a day for two weeks. Discussed that treated areas will become red, crusty, and inflamed. If areas become too uncomfortable, patient may use OTC hydrocortisone cream to help decrease irritation and can discontinue treatment early. Sun exposure should be avoided during treatment. Patient instructed to contact office for any questions or issues during treatment. Lesions that fail to resolve once treated area is healed should be re-evaluated in the office. Handout given to patient Cryotherapy, skin lesion - Right Ear (3) Related Medications fluorouracil (Efudex) 5 % cream Apply to directed areas on the face, ears and back of hands twice a day x 14 days. Dispense 30 day supply but only use for 14 days. Next Visit: pending biopsy results, 6 months documented in this encounter [facility] 08-24-2023 Evaluation note Encounter Date Diagnosis Assessment Notes Aug, Medicare annual wellness visit, subsequent (ICD-10 - Z00.00) Personalized health advice was given to the beneficiary including a written plan for screenings discussed and provided. Advanced care planning reviewed and/or information given as requested. Additional counseling was provided here today in regards to, [ ]. The above visit was performed by [ ], under direct supervision of [ ]. Document reviewed and amended by provider signed below. Aug, ASHD (arteriosclerot ic heart disease) (ICD-10 - I25.10) This patient is stable without activity related CP, dyspnea or lightheadedness. They are instructed to continue exercise and AHA diet plan. Continue secondary prevention measures. Aug, Type 2 diabetes mellitus with hyperglycemia, without long-term current use of insulin (ICD-10 - E11.65) This patient is following a comprehensive diabetic treatment plan. They are checking their feet daily for calluses and nonhealing ulcers. They are being seen for yearly dilated eye examinations. Goals: SBP less than 130, LDL less than 100, FBS less than 140, A1C less than 7%. They are checking their BS daily, will which are reviewed at the office visit. Continue regular routine monitoring of A1C, Microalbumin, Dilated eye exam and Foot exam Last A1C < 6.5% Aug, Primary hypertension (ICD-10 - I10) This patient is instructed to consume a healthy, low-fat, low-salt diet. They are also encouraged to continue exercise to achieve/maintain a normal BMI. Patient is instructed on home BP measurements: - rest for 5 minutes w/o talking.- positioned w/ feet on floor and arm supported.- average best 2/3 readings w/ goal < 135/85.- update office w/ home readings in 2 weeks. Aug, Elevated cholesterol (ICD-10 - E78.00) Instructed on diet and exercise with continued statin therapy.Discussed the beneficial effects of lowering cholesterol in reducing the risk for cerebrovascular and cardiovascular disease. Aug, GRADY (obstructive sleep apnea) (ICD-10 - G47.33) This patient is aware of the benefits associated with GRADY: With continued use, the patient reduces the risk for MT, CVA, HTN, cardiac dysrhythmias and sudden cardiac deaths.The patient is also aware of the association between GRADY and morning headaches, daytime somnolence, fatigue and obesity, which also has been improved with continued use.The patient is compliant with treatment, wearing the equipment every night for greater than 4 hours.The patient is instructed to continue use of the CPAP for GRADY treatment. Aug, Malignant neoplasm of prostate (ICD-10 - C61) No s/s of progression. Latest PSA suppressed. 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 No further f/u scheduled w/ ENT. Sinus retention cyst and frontal sinus mass benign [facility] Other 01-19-2024 Evaluation note* Encounter Date Diagnosis Assessment Notes Treatment Notes Treatment Clinical Notes Jul, Pancreatic mass (ICD-10 - K86.89) MRCP: 4cm mass - 2022 - previously completed E[facility] bx at [facility] - stable in size from 2021 [facility] Other 01-18-2024 NoteHNO ID: [id number] Author: MARCO A ESQUEDA MD Service: ? Author Type: Physician Type: Progress Notes Filed: 08/04/2023 06:33 Note Text: PATIENT NAME: Pablo Felix DATE: 08/03/2023 PRIMARY CARE PHYSICIAN: Dr. Jamar Fall OTHER PHYSICIANS: Dr. Anthony Scruggs, Dr. Khan, [facility] Cardiology Portions of this encounter note have been copied from the note from 04/27/2023 and has been updated where appropriate, and reflect my current medical decision making from today. CC: This is a 78 year old male with metastatic prostate cancer, seen for scheduled follow-up. INTERIM HISTORY: Since the patient's last visit here he has noticed an increase in skin lesion over his right ear. It has slowly increased in size over the past several months. He also has noticed stomach problems . Apparently he develops nausea and upset stomach after eating certain foods, on and off for the past 6 months. Certain foods he tolerates well. He has had no associated nausea or vomiting. He has occasional diarrhea from the Xtandi for which he takes Imodium. Otherwise no change in bowel habits. He remains off Lupron and overall feels somewhat better. He remains on Xtandi which he is tolerating. MEDICATIONS: Current Outpatient Medications Medication Sig enzalutamide (XTANDI) 80 mg tablet Take 2 tablets (160 mg) by mouth once daily. Calcium Citrate-Vitamin D3 200 mg-6.25 mcg (250 unit) tab Take 2 tablets by mouth once daily. metoprolol succinate ER (TOPROL XL) 25 mg 24 hr tablet Take by mouth. Grrigxruodjgc-Lvivfzyb-Lcypct (MULTIVITAMIN 50 PLUS) tab Take 1 tablet by mouth once daily. GLIMEPIRIDE ORAL Take 0.5 mg by mouth once daily. metFORMIN (GLUCOPHAGE) 1,000 mg tablet Take 1,000 mg by mouth once daily. atorvastatin (LIPITOR) 40 mg tablet Take 40 mg by mouth once daily. lisinopril-hydrochlorothiazide (PRINZIDE,ZESTORETIC) 20-12.5 mg per tablet Take 1 tablet by mouth once daily. aspirin, enteric coated (ASPIRIN, ENTERIC COATED) 81 mg EC tablet Take 81 mg by mouth once daily. No current facility-administered medications for this visit. ALLERGIES: ALLERGIES Allergen Reactions Penicillins Unknown Simvastatin Unknown PAST MEDICAL HISTORY: PAST MEDICAL HISTORY Diagnosis Date CAD (coronary artery disease) Hypercholesterolemia on medication Hypertension on medication Nocturia Prostate CA (HCC) Rising PSA level 10/2021 PAST SURGICAL HISTORY: PAST SURGICAL HISTORY Procedure Laterality Date APPENDECTOMY CORONARY ARTERY BYPASS GRAFT FAMILY HISTORY: FAMILY HISTORY Problem Relation Age of Onset Cancer Mother Cancer SOCIAL HISTORY: Social History Tobacco Use Smoking status: Never Passive exposure: Never Smokeless tobacco: Never Vaping Use Vaping Use: Never used Substance Use Topics Alcohol use: Yes Comment: 1 day/wk Drug use: No REVIEW OF SYSTEMS: General: No weight loss, malaise or fevers. HEENT: Negative for frequent or significant headaches. No changes in hearing or vision, no nose bleeds or other nasal problems. Respiratory: Negative for cough, wheezing or shortness of breath. Cardiovascular: Negative for chest pain, leg swelling or palpitations. GI: Negative for abdominal discomfort, blood in stools or black stools or change in bowel habits. : No history of dysuria, frequency or incontinence. Musculoskeletal: Negative for: joint pain or swelling, back pain and muscle pain. Skin: Negative for lesions, rash and itching. Hematology/Lymphology: Negative for prolonged bleeding, bruising easily or swollen nodes. Neuro: No history of headaches, syncope, paralysis, seizures or tremors. PHYSICAL EXAM: BP 160/70 Pulse (!) 54 Temp 36.1 ?C (97 ?F) (Temporal) Resp 16 Ht 167.6 cm (5' 5.98 ) Wt 94.5 kg (208 lb 5.4 oz) SpO2 99% BMI 33.64 kg/m? ECOG 0 Exam limited to gross visualization where appropriate due to COVID-19. Gen.: This is an age-appropriate patient in no acute distress. Head: Appears atraumatic with no visible lesions. Eyes: Pupils equally round and reactive to light, extraocular muscles are intact. Neck: Supple. Mouth: Masked. Respiratory: Appears to be respiring comfortably. Neurologic: Nonfocal to gross visualization. Alert and oriented ?3. Psychiatric: No evidence of inappropriate anxiety or depression. Skin: Visible areas of skin without rash, lesions, wounds or petechiae. 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 Left base margin positive for neoplasm. Seminal vesicles with no diagnostic abnormality. 2 resected lymph nodes negative for neoplasm. LABS: Hemoglobin (g/dL) Date Value 07/27/2023 11.8 05/08/2018 12.8 Hematocrit (%) Date Value 07/27/2023 34.8 05/08/2018 36.8 WBC (k/uL) Date Value 07/27/2023 6.43 05/08/2018 5.63 Platele (more content not included)...[facility]12-07-2023 Note [facility] Cardiology Clinic Note Chief Complaint: Patient here for 1.5 year follow up CAD, hypertension, and hyperlipidemia. Had routine echo in Mar 2022, and labs in Mar 2023. Doing very well, as he denies chest pain, SOB, palpitations, and LE edema. HPI: Pablo Felix is a 78 y.o. male With a history of coronary artery disease, prior coronary artery bypass graft surgery, aortic stenosis here in routine follow-up. At the time of CABG, he had no cardiovascular symptoms. A stress test obtained prior to prostate surgery was abnormal. Subsequently: Angiography showed multivessel disease. He underwent bypass. He has been doing well and has no new symptoms. Cardiology ROS: Review of Systems Musculoskeletal: Positive for arthritis, back pain, joint pain and myalgias. All other systems reviewed and are negative. Past Medical History He has no past medical history on file. Surgical History He has no past surgical history on file. Social History He has no history on file for tobacco use, alcohol use, and drug use. Family History No family history on file. Allergies Patient has no allergy information on record. Medications No current outpatient medications on file. Last Recorded Vitals BP 129/65 (BP Location: Right arm, Patient Position: Sitting) Pulse 50 Ht 1.651 m (5' 5 ) Wt 91.6 kg (202 lb) SpO2 97% BMI 33.61 kg/m??? Physical Examination: GENERAL: alert and oriented x3, well developed, in no acute distress. HEAD: atraumatic, normocephalic. EYES: NIKITA, EOMI. NECK: trachea midline, no JVD present, no carotid bruits present. CARDIAC: S1, S2 present. RRR. Harsh, ejection systolic murmur heard best at the 2nd right upper intercostal space., no rubs, or gallops. RESPIRATORY: CTAB, no increased effort of breathing, no rales, rhonchi, or wheezing. ABDOMEN: soft, nontender, nondistended. EXTREMITIES: no lower extremity edema, peripheral pulses are 2+ bilaterally. No rash/skin discoloration present. NEURO: strength/sensation equal and symmetric in bilateral upper and lower extremities. PSYCH: appropriate mood, affect, and judgement. Investigations: Left internal mammary artery graft to the left anterior descending, saphenous vein graft to the posterior descending, saphenous vein graft to the OM1 (2014) Echocardiogram 01/26/2021 LVSF normal Mild DD Mild AV stenosis and regurgitation Mild TV regurg Mildly elevated Rt Sided pressures Echocardiogram 04/2022: Global left ventricular systolic function is normal. EF 60%. Mild diastolic dysfunction. Moderately dilated right ventricle and normal systolic function. Moderate aortic valve stenosis with a DVI of 0.630. Moderate tricuspid regurgitation. Mild elevated right-sided pressures Stress test 09/05/2020: Conclusion: 1. Normal myocardial perfusion with no reversible ischemia 2. Normal exercise stress test Assessment: coronary arteriosclerosis -s/p CABG 2014 -NM Stress test 09/09/2020: no ischemia, EF 61% -LDL 2019: 70 -Plan for stress test every 5-6 years d/t asymptomatic before CABG in 2014 -Denies any angina or dyspnea -Continue ASA, lipitor and metoprolol history of hypertension 127/69 Controlled, continue lisinopril/HCTZ 20/12.5mg daily and metoprolol hyperlipidemia Continue atorvastatin reviewed labs 01/18/21 Chol 127, HDL 40, Trig 147, LDL 57.6 Liver functin normal carotid artery stenosis Carotid US 08/2019: 0-49% stenosis in right and left carotid arteries Continue ASA and statin Moderate aortic stenosis Plan: Continue optimal medical therapy for coronary artery disease including aspirin, moderate intensity statin therapy, a beta-jose and an angiotensin-converting enzyme inhibitor given his diabetes Given vascular disease and diabetes, consider addition of an SGLT2 inhibitor in the form of Jardiance or Farxiga Will repeat an echocardiogram given moderate aortic valve stenosis in November 2021 Will need a repeat stress test in the next 1 to 2 years given asymptomatic status prior to discovery of severe three-vessel coronary artery disease Return to clinic in a year or sooner should problems arise Bridger Mulligan MD, MPH, [facility], [facility], [facility] Interventional Cardiology Pager Email: [email or web address] Evaluation note* Encounter Date Diagnosis Assessment Notes Treatment Notes Treatment Clinical Notes May, Mass of nasal sinus (ICD-10 - J34.89) Incidental finding on XR orbits. He c/o right sided congestion and rhinorrhea. He denies facial pressure or pain. May, Impacted cerumen of right ear (ICD-10 - H61.21) Offered to irrigate but he hasn't treated w/ Debrox or mineral oil, which may result in difficulty removing. 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 He has had EUS/FNA in 2014 w/o f/u appointments scheduled. New GI symptoms w/ normal labs and possibly new pancreatic lesions in the tail and stable but larger massin the body of the pancreas. Question is whether a repeat MRCP should be scheduled for 3-6mo or should he be referred for repeat EUS/bx Apr, Nausea (ICD-10 - R11.0) Diet instructions. May be due to chemotherapy and/or Metformin. May be due to stress May be due to PUD - suggest starting PPI Apr, Lower abdominal pain (ICD-10 - R10.30) Slowly improving, lower abdomen and not interfering w/ ADL, bowel/bladder function. Apr, Malignant neoplasm of prostate (ICD-10 - C61) Stable w/ declining PSA. Xtandi may be contributing to symptoms. 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 Author Type: Nurse Practitioner Type: Progress Notes Filed: 04/27/2023 11:16 AM Note Text: PATIENT NAME: Pablo Felix DATE: 04/27/2023 PRIMARY CARE PHYSICIAN: Dr. Jamar Fall OTHER PHYSICIANS: Dr. Anthony Scruggs, Dr. Khan, [facility] Cardiology Portions of this encounter note have been copied from the note from 02/02/2023 and has been updated where appropriate, and reflect my current medical decision making from today. CC: This is a 78 year old male with metastatic prostate cancer, seen for scheduled follow-up and Xgeva. INTERIM HISTORY: Pablo Felix returns for follow-up. He remains on Xtandi 160 mg daily. He had been on Lupron every 6 months, but his injection scheduled for April [address] Scruggs, due to low PSA level. (Lupron last given March 2022). He is tolerating the Xtandi well and denies any side effects. He has been having some issues with his stomach and has underwent multiple testing per Dr. Fall. He denies any unusual bone pain. He denies any changes in urination. No pain, burning or difficulty. MEDICATIONS: Current Outpatient Medications Medication Sig aspirin, enteric coated (ASPIRIN, ENTERIC COATED) 81 mg EC tablet Take 81 mg by mouth once daily. atorvastatin (LIPITOR) 40 mg tablet Take 40 mg by mouth once daily. Calcium Citrate-Vitamin D3 200 mg-6.25 mcg (250 unit) tab Take 2 tablets by mouth once daily. enzalutamide (XTANDI) 80 mg tablet Take 2 tablets (160 mg) by mouth once daily. GLIMEPIRIDE ORAL Take 0.5 mg by mouth once daily. lisinopril-hydrochlorothiazide (PRINZIDE,ZESTORETIC) 20-12.5 mg per tablet Take 1 tablet by mouth once daily. metFORMIN (GLUCOPHAGE) 1,000 mg tablet Take 1,000 mg by mouth once daily. metoprolol succinate ER (TOPROL XL) 25 mg 24 hr tablet Take by mouth. Epwrvvwqczfwq-Lucudhzu-Uyqtlk (MULTIVITAMIN 50 PLUS) tab Take 1 tablet by mouth once daily. No current facility-administered medications for this visit. ALLERGIES: ALLERGIES Allergen Reactions Penicillins Unknown Simvastatin Unknown PAST MEDICAL HISTORY: PAST MEDICAL HISTORY Diagnosis Date CAD (coronary artery disease) Hypercholesterolemia on medication Hypertension on medication Nocturia Prostate CA (HCC) Rising PSA level 10/2021 PAST SURGICAL HISTORY: PAST SURGICAL HISTORY Procedure Laterality Date APPENDECTOMY CORONARY ARTERY BYPASS GRAFT FAMILY HISTORY: FAMILY HISTORY Problem Relation Age of Onset Cancer Mother Cancer SOCIAL HISTORY: Social History Tobacco Use Smoking status: Never Passive exposure: Never Smokeless tobacco: Never Vaping Use Vaping Use: Never used Substance Use Topics Alcohol use: Yes Comment: 1 day/wk Drug use: No REVIEW OF SYSTEMS: General: No weight loss, malaise or fevers. HEENT: Negative for frequent or significant headaches. No changes in hearing or vision, no nose bleeds or other nasal problems. Respiratory: Negative for cough, wheezing or shortness of breath. Cardiovascular: Negative for chest pain, leg swelling or palpitations. GI: Negative for abdominal discomfort, blood in stools or black stools or change in bowel habits. : No history of dysuria, frequency or incontinence. Musculoskeletal: Negative for: joint pain or swelling, back pain and muscle pain. Skin: Negative for lesions, rash and itching. Hematology/Lymphology: Negative for prolonged bleeding, bruising easily or swollen nodes. Neuro: No history of headaches, syncope, paralysis, seizures or tremors. PHYSICAL EXAM: BP (!) 141/49 Pulse (!) 50 Temp 36.1 ?C (97 ?F) (Temporal) Resp 16 Ht 167.6 cm (5' 5.98 ) Wt 92.5 kg (204 lb) SpO2 100% BMI 32.94 kg/m? ECOG 0 Exam limited to gross visualization where appropriate due to COVID-19. Gen.: This is an age-appropriate patient in no acute distress. Head: Appears atraumatic with no visible lesions. Eyes: Pupils equally round and reactive to light, extraocular muscles are intact. Neck: Supple. Mouth: Masked. Respiratory: Appears to be respiring comfortably. Neurologic: Nonfocal to gross visualization. Alert and oriented ?3. Psychiatric: No evidence of inappropriate anxiety or depression. Skin: Visible areas of skin without rash, lesions, wounds or petechiae. 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 Left base margin positive for neoplasm. Seminal vesicles with no diagnostic abnormality. 2 resected lymph nodes negative for neoplasm. LABS: Hemoglobin (g/dL) Date Value 04/24/2023 12.2 05/08/2018 12.8 Hematocrit (%) Date Value 04/24/2023 36.2 05/08/2018 36.8 WBC (k/uL) Date Value 04/24/2023 6.80 05/08/2018 5.63 Platelet Count (k/uL) Date Value 04/24/2023 195 05/08/2018 168 PSA 01/22/20 (more content not included)...[facility]10-12-2023 History of Present illness Narrative* Christo Howard APRN.[employer] OPERATOR - 04/27/2023 10:00 AM EDT PATIENT NAME: Pablo Felix DATE: 04/27/2023 PRIMARY CARE PHYSICIAN: Dr. Jamar Fall OTHER PHYSICIANS: Dr. Anthony Scruggs, Dr. Khan, [facility] Cardiology Portions of this encounter note have been copied from the note from 02/02/2023 and has been updated where appropriate, and reflect my current medical decision making from today. CC: This is a 78 year old male with metastatic prostate cancer, seen for scheduled follow-up and Xgeva. INTERIM HISTORY: Pablo Felix returns for follow-up. He remains on Xtandi 160 mg daily. He had been on Lupron every 6 months, but his injection scheduled for April [address] Scruggs, due to low PSA level. (Lupron last given March 2022). He is tolerating the Xtandi well and denies any side effects. He has been having some issues with his stomach and has underwent multiple testingper Dr. Fall. He denies any unusual bone pain. He denies any changes in urination. No pain, burningor difficulty. MEDICATIONS: Current Outpatient Medications Medication Sig aspirin, enteric coated (ASPIRIN, ENTERIC COATED) 81 mg EC tablet Take 81 mg by mouth once daily. atorvastatin (LIPITOR) 40 mg tablet Take 40 mg by mouth once daily. Calcium Citrate-Vitamin D3 200 mg-6.25 mcg (250 unit) tab Take 2 tablets by mouth once daily. enzalutamide (XTANDI) 80 mg tablet Take 2 tablets (160 mg) by mouth once daily. GLIMEPIRIDE ORAL Take 0.5 mg by mouth once daily. lisinopril-hydrochlorothiazide (PRINZIDE,ZESTORETIC) 20-12.5 mg per tablet Take 1 tablet by mouth once daily. metFORMIN (GLUCOPHAGE) 1,000 mg tablet Take 1,000 mg by mouth once daily. metoprolol succinate ER (TOPROL XL) 25 mg 24 hr tablet Take by mouth. Kursyvdlmdtbw-Gjjruknn-Easdlx (MULTIVITAMIN 50 PLUS) tab Take 1 tablet by mouth once daily. No current facility-administered medications for this visit. ALLERGIES: ALLERGIES Allergen Reactions Penicillins Unknown Simvastatin Unknown PAST MEDICAL HISTORY: PAST MEDICAL HISTORY Diagnosis Date CAD (coronary artery disease) Hypercholesterolemia on medication Hypertension on medication Nocturia Prostate CA (HCC) Rising PSA level 10/2021 PAST SURGICAL HISTORY: PAST SURGICAL HISTORY Procedure Laterality Date APPENDECTOMY CORONARY ARTERY BYPASS GRAFT FAMILY HISTORY: FAMILY HISTORY Problem Relation Age of Onset Cancer Mother Cancer SOCIAL HISTORY: Social History Tobacco Use Smoking status: Never Passive exposure: Never Smokeless tobacco: Never Vaping Use Vaping Use: Never used Substance Use Topics Alcohol use: Yes Comment: 1 day/wk Drug use: No REVIEW OF SYSTEMS: General: No weight loss, malaise or fevers. HEENT: Negative for frequent or significant headaches. No changes in hearing or vision, no nose bleeds or other nasal problems. Respiratory: Negative for cough, wheezing or shortness of breath. Cardiovascular: Negative for chest pain, leg swelling or palpitations. GI: Negative for abdominal discomfort, blood in stools or black stools or change in bowel habits. : No history of dysuria, frequency or incontinence. Musculoskeletal: Negative for: joint pain or swelling, back pain and muscle pain. Skin: Negative for lesions, rash and itching. Hematology/Lymphology: Negative for prolonged bleeding, bruising easily or swollen nodes. Neuro: No history of headaches, syncope, paralysis, seizures or tremors. PHYSICAL EXAM: BP (!) 141/49 Pulse (!) 50 Temp 36.1 C (97 F) (Temporal) Resp 16 Ht 167.6 cm(5' 5.98 ) Wt 92.5 kg (204 lb) SpO2 100% BMI 32.94 kg/m ECOG 0 Exam limited to gross visualization where appropriate due to COVID-19. Gen.: This is an age-appropriate patient in no acute distress. Head: Appears atraumatic with no visible lesions. Eyes: Pupils equally round and reactive to light, extraocular muscles are intact. Neck: Supple. Mouth: Masked. Respiratory: Appears to be respiring comfortably. Neurologic: Nonfocal to gross visualization. Alert and oriented 3. Psychiatric: No evidence of inappropriate anxiety or depression. Skin: Visible areas of skin without rash, lesions, wounds or petechiae. 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 Left base margin positive for neoplasm. Seminal vesicles with no diagnostic abnormality. 2 resected lymph nodes negative for neoplasm. LABS: Hemoglobin (g/dL) Date Value 04/24/2023 12.2 05/08/2018 12.8 Hematocrit (%) Date Value 04/24/2023 36.2 05/08/2018 36.8 WBC (k/uL) Date Value 04/24/2023 6.80 05/08/2018 5.63 Platelet Count (k/uL) Date Value 04/24/2023 195 05/08/2018 168 PSA 01/21/2019 <0.13 09/26/2019 0.09 06/17/2020 0.43 09/07/2020 0.84 05/06/2021 1.09 07/19/2021 1.58 10/25/2021 2.64 12/30/2021 0.14 02/17/2022 0.03 05/12/2022 0.12 08/11/2022 0.11 10/25/2022 0.13 02/02/2023 0.09 04/24/2023 0.12 RADIOLOGY/OTHER STUDIES: 11/05/2021 CT chest/abdomen/pelvis ([facility]) Several sclerotic lesions consistent with metastatic disease. No evidence of visceral organ involvement or lymphadenopathy. 11/05/2021 Bone scan ([facility]) Multifocal osseous metastasis including the left femur at the lesser trochanter, right pubis symphysis, multiple ribs bilaterally. 01/22/2018 Nuclear bone scan ([facility]) New focal increased activity left frontal bone, left T8 vertebral body. 01/22/2018 MRI pelvis ([facility]) 4.5 cm area of T2 signal in the prostate bed. 07/24/2014 CT abdomen/pelvis ([facility] Diffuse prostatic enlargement with indentation of the bladder base. Incidental 2.5 x 1 cm exophytic hypodense lesion adjacent to the pancreatic body. ASSESSMENT/PLAN: 1. Metastatic prostate cancer (HCC) - ICD9: 185, ICD10: C61 (primary diagnosis) The patient was diagnosed with early-stage high-grade prostate cancer in June 2014 (TRUS [id number]/02/2014). He underwent a radical prostatectomy on 11/05/2014. Pathology consistent with stage IIIC (pT2b, N0, M0), Ponce 5+4 equal 9. Postop the patient's PSA initially became undetectable. By December 2017 the patient's PSA increased to 0.34. Staging studies January 2018 revealed no evidence of metastases. He subsequently was started on Lupron 02/12/2018, and has received Lupron intermittently since. The patient received external beam radiation therapy to the prostate bed 02/05/2018 - 03/30/2018. The patient's PSA once again became undetectable. However, by September 2019 the PSA increased to 0.09. Lupron every 6 months was continued. Despite continuation of Lupron the patient's PSA continued to increase. By July 2021 the PSA increased to 1.58. He was seen by his urologist (Dr. Scruggs) and recommendations were to add abiraterone/prednisone to the Lupron. Unfortunately, the patient's insurance would not cover the cost of the medications. PSA obtained 10/25/2021 was further elevated at 2.64. Testosterone 10/28/2021 was adequately suppressed at <12. Bone scan obtained at [facility] 11/05/2021 revealed multiple bone metastases. CT scans showed no evidence of visceral organ involvement or suspicious lymphadenopathy. On 11/10/2021 the patient started Xtandi 160 mg daily. Antiresorptive therapy with Xgeva started 11/18/2021, with plans give every [address] Scruggs elected to hold Lupron that was scheduled for April 2023 due to low PSA of 0.12 from . Currently the patient is clinically stable and his PSA has improved significantly. Options for management were discussed. The patient will continue as is with Xtandi 160 mg daily plus Xgeva every 3 months. He will receive Xgeva today. We will see him back in 3 months with labs. We will monitor his testosterone level and PSA, and would recommend that he resume Lupron if any significant changes. 2. Coronary artery disease - ICD9: 414.01, ICD10: I25.10 Status post CABG 08/17/2014 ([facility]). Stable on current medications. Continue per PCP/cardiology. 3. Essential hypertension - ICD9: 401.9, ICD10: I10 Stable on current medications. Continue per PCP/cardiology. 4. Type 2 diabetes mellitus (HCC) - ICD9: 250.00, ICD10: E11.9 Stable on current medications. Continue per PCP. 5. Pancreatic mass 2.5 cm exophytic density adjacent to the pancreatic body identified on baseline CT scans July 2014. CT directed pancreatic FNA obtained 08/22/2014 negative. Will monitor with repeat CT scan. Christo Howard APRN.ALEXA CC: Dr. Anthony Scruggs I spent a total of 30 minutes on the date of the service which included preparing to see the patient, [id number] patient care, completing clinical documentation, obtaining and/or reviewing separately obtained history, performing a medically appropriate examination, counseling and educating the pat ient/family/caregiver, ordering medications, tests, or procedures, independently interpreting results (not separately reported), and communicating results to the patient/family/caregiver. [facility]* Encounter Date Diagnosis Assessment Notes Treatment Notes Treatment Clinical Notes Apr, Pancreatic mass (ICD-10 - K86.89) N-Trig Other [id number] Hospital Discharge instructions Patient Education 04/17/2023 09:18:19 Prostate Cancer Prostate Cancer The prostate is a small gland that produces fluid that makes up semen (seminal fluid). It is located below the bladder in men, in front of the rectum. Prostate cancer is the abnormal growth of cells in the prostate gland. What are the causes? The exact cause of this condition is not known. What increases the risk? You are more likely to develop this condition if: You are 65 years of age or older. You have a family history of prostate cancer. You have a family history of breast and ovarian cancer. You have genes that are passed from parent to child (inherited), such as BRCA1 and BRCA2. You have Montague syndrome. men and men of descent are diagnosed with prostate cancer at higher rates than other men. The reasons for this are not well understood and are likely due to a combination of genetic and environmental factors. What are the signs or symptoms? Symptoms of this condition include: Problems with urination. This may include: ?A weak or interrupted flow of urine. ?Trouble starting or stopping urination. ?Trouble emptying the bladder all the way. ?The need to urinate more often, especially at night. Blood in urine or semen. Persistent pain or discomfort in the lower back, lower abdomen, or hips. Trouble getting an erection. Weakness or numbness in the legs or feet. How is this diagnosed? This condition can be diagnosed with: A digital rectal exam. For this exam, a health care provider inserts a gloved finger into the rectum to feel the prostate gland. A blood test called a prostate-specific antigen (PSA) test. A procedure in which a sample of tissue is taken from the prostate and checked under a microscope (prostate biopsy). An imaging test called transrectal ultrasonography. Once the condition is diagnosed, tests will be done to determine how far the cancer has spread. This is called staging the cancer. Staging may involve imaging tests, such as a bone scan, CT scan, PETscan, or MRI. Stages of prostate cancer The stages of prostate cancer are as follows: Stage 1 (I). At this stage, the cancer is found in the prostate only. The cancer is not visible on imaging tests, and it is usually found by accident, such as during prostate surgery. Stage 2 (II). At this stage, the cancer is more advanced than it is in stage 1, but the cancer has not spread outside the prostate. Stage 3 (III). At this stage, the cancer has spread beyond the outer layer of the prostate to nearby tissues. The cancer may be found in the seminal vesicles, which are near the bladder and the prostate. Stage 4 (IV). At this stage, the cancer has spread to other parts of the body, such as the lymph nodes, bones, bladder, rectum, liver, or lungs. Prostate cancer grading Prostate cancer is also graded according to how the cancer cells look under a microscope. This is called the Lucrecia score and the total score can range from 6 10, indicating how likely it is that the cancer will spread (metastasize) to other parts of the body. The higher the score, the greater thelikelihood that the cancer will spread. Ponce 6 or lower: This indicates that the cancer cells look similar to normal prostate cells (well differentiated). Ponce 7: This indicates that the cancer cells look somewhat similar to normal prostate cells (moderately differentiated). Ponce 8, 9, or 10: This indicates that the cancer cells look very different than normal prostate cells (poorly differentiated). How is this treated? Treatment for this condition depends on several factors, including the stage of the cancer, your age, personal preferences, and your overall health. Talk with your health care provider about treatment options that are recommended for you. Common treatments include: Observation for early stage prostate cancer (active surveillance). This involves having exams, blood tests, and in some cases, more biopsies. For some men, this is the only treatment needed. Surgery. Types of surgeries include: ?Open surgery (radical prostatectomy). In this surgery, a larger incision is made to remove the prostate. ?A laparoscopic radical prostatectomy. This is a surgery to remove the prostate and lymph nodes through several small incisions. It is often referred to as a minimally invasive surgery. ?A robotic radical prostatectomy. This is laparoscopic surgery to remove the prostate and lymph nodes with the help of robotic arms that are controlled by the surgeon. ?Cryoablation. This is surgery to freeze and destroy cancer cells. Radiation treatment. Types of radiation treatment include: ?External beam radiation. This type aims beams of radiation from outside the body at the prostate to destroy cancerous cells. ?Brachytherapy. This type uses radioactive needles, seeds, wires, or tubes that are implanted into the prostate gland. Like external beam radiation, brachytherapy destroys cancerous cells. An advantage is that this type of radiation limits the damage to surrounding tissue and has fewer side effects. Chemotherapy. This treatment kills cancer cells or stops them from multiplying. It kills both cancer cells and normal cells. Targeted therapy. This treatment uses medicines to kill cancer cells without damaging normal cells. Hormone treatment. This treatment involves taking medicines that act on testosterone, one of the male hormones, by: ?Stopping your body from producing testosterone. ?Blocking testosterone from reaching cancer cells. Follow these instructions at home: Lifestyle Do not use any products that contain nicotine or tobacco. These products include cigarettes, chewing tobacco, and vaping devices, such as e-cigarettes. If you need help quitting, ask your health careprovider. Eat a healthy diet. To do this: ?Eat foods that are high in fiber. These include beans, whole grains, and fresh fruits and vegetables. ?Limit foods that are high in fat and sugar. These include fried or sweet foods. Treatment for prostate cancer may affect sexual function. If you have a partner, continue to have intimate moments. This may include touching, holding, hugging, and caressing your partner. Get plenty of sleep. Consider joining a support group for men who have prostate cancer. Meeting with a support group mayhelp you learn to manage the stress of having cancer. General instructions Take glwu-tji-djxsmcv and prescription medicines only as told by your health care provider. If you have to go to the hospital, notify your cancer specialist (oncologist). Keep all follow-up visits. This is important. Where to find more information [place] [employer]: www.cancer.org [place] [employer]: www.cancer.net [employer] [place]: www.cancer.gov Contact a health care provider if: You have new or increasing trouble urinating. You have new or increasing blood in your urine. You have new or increasing pain in your hips, back, or chest. Get help right away if: You have weakness or numbness in your legs. You cannot control urination or your bowel movements (incontinence). You have chills or a fever. Summary The prostate is a small gland that is involved in the production of semen. It is located below a man's bladder, in front of the rectum. Prostate cancer is the abnormal growth of cells in the prostate gland. Treatment for this condition depends on the stage of the cancer, your age, personal preferences, and your overall health. Talk with your health care provider about treatment options that are recommended for you. Consider joining a support group for men who have prostate cancer. Meeting with a support group mayhelp you learn to manage the stress of having cancer. This information is not intended to replace advice given to you by your health care provider. Make sure you discuss any questions you have with your health care provider. Document Revised: 09/29/2021 Document Reviewed: 09/29/2021 Elsevier Patient Education 2022 [employer]. Follow Up Care 10/28/2022 08:37:57 With:KAEL JAMES, Anthony Lee, URL Address: [facility] [address], [place] [address]- [phone] When: Unknown Comments:6 mos w/ PSA (and possible Lupron) [facility] 09-27-2023 Evaluation note* Encounter Date Diagnosis Assessment Notes Treatment Notes Treatment Clinical Notes Mar, Pancreatic mass (ICD-10 - K86.89) N-Trig Other 09-20-2023 Evaluation note* Encounter Date Diagnosis Assessment Notes Treatment Notes Treatment Clinical Notes Mar, Right upper quadrant abdominal pain (ICD-10 - R10.11) Diet instructions Lab to r/o acute infection, cholecystitis, pancreatitis GBUS vs CT abd based on results BLand, low fat diet Mar, Nausea (ICD-10 - R11.0) [place] , small/frequent feedings. Pepcid, Prilosec, Tums as needed. Declines Rx for Zoloft. May require EGD Mar, Type 2 diabetes mellitus with hyperglycemia, without long-term current use of insulin (ICD-10 - E11.65) This patient is following a comprehensive diabetic treatment plan. They are checking their feet daily for calluses and nonhealing ulcers. They are being seen for yearly dilated eye examinations. Goals: SBP less than 130, LDL less than 100, FBS less than 140, AC and A1C less than 7%. They are checking their BS daily, will which are reviewed at the office visit. Continue regular routine monitoring of A1C,] Microalbumin, Dilated eye exam and Foot exam [facility] Other 08-30-2023 Evaluation note* Encounter Date Diagnosis Assessment Notes Treatment Notes Treatment Clinical Notes Feb, ASHD (arteriosclerotic heart disease) (ICD-10 - I25.10) This patient is stable without activity related CP, dyspnea or lightheadedness. They are instructed to continue exercise and AHA diet plan. Feb, Nonrheumatic aortic valve stenosis (ICD-10 - I35.0) ECHO: ROGER 1.13, Velocity 324, - 04/2022 Asymptomatic w/o CP, tachycardia or syncope Moderate in degree Adequate control of BP f/u Cardiology Feb, Primary hypertension (ICD-10 - I10) This patient is instructed to consume a healthy, low-fat, low-salt diet. They are also encouraged to continue exercise to achieve/maintain a normal BMI. Feb, Elevated cholesterol (ICD-10 - E78.00) Instructed on diet and exercise with continued statin therapy.Discussed the beneficial effects of lowering cholesterol in reducing the risk for cerebrovascular and cardiovascular disease. Feb, GRADY (obstructive sleep apnea) (ICD-10 - G47.33) This patient is aware of the benefits associated with GRADY: With continued use, the patient reduces the risk for MT, CVA, HTN, cardiac dysrhythmias and sudden cardiac deaths.The patient is also aware of the association between GRADY and morning headaches, daytime somnolence, fatigue and obesity, which also has been improved with continued use.The patient is compliant with treatment, wearing the equipment every night for greater than 4 hours.The patient is instructed to continue use of the CPAP for GRADY treatment. Feb, Type 2 diabetes mellitus with hyperglycemia, without long-term current use of insulin (ICD-10 - E11.65) This patient is following a comprehensive diabetic treatment plan. They are checking their feet daily for calluses and nonhealing ulcers. They are being seen for yearly dilated eye examinations. Goals: SBP less than 130, LDL less than 100, FBS less than 140, AC and A1C less than 7%. They are checking their BS daily, will which are reviewed at the office visit. Continue regular routine monitoring of A1C,] Microalbumin, Dilated eye exam and Foot exam Latest A1C 5.9% w/ average BS 120 Feb, Prostate cancer (ICD-10 - C61) Suppressed PSA f/u Continue treatment Feb, Other chronic pain (ICD-10 - G89.29) Feb, Pain in right shoulder (ICD-10 - M25.511) ROM exercises Ice/heat and Tylenol Feb, Primary osteoarthritis, right shoulder (ICD-10 - M19.011) Requesting subacromial injection Feb, Carpal tunnel syndrome of right wrist (ICD-10 - G56.01) Reviewed symptoms and treatment Suggest cockup splint Feb, Other obesity due to excess calories (ICD-10 - E66.09) This patient has been instructed on a low-fat, high-fiber diet. They are instructed to reduce calories, portion sizes and snacks. It is recommended that they exercise for 30 minutes, 3-5 times weekly. Feb, Body mass index [BMI] 32.0-32.9, adult (ICD-10 - Z68.32) Feb, Other This patient mack s been instructed on a low-fat, high-fiber diet. They are instructed to reduce calories, portion sizes and snacks. It is recommended that they exercise for 30 minutes, 3-5 times weekly. [facility] Other 07-23-2023 Evaluation note* Encounter Date Diagnosis Assessment Notes Treatment Notes Treatment Clinical Notes Jan, Left bundle-branch block, unspecified (ICD-10 - I44.7) [facility] Other 07-20-2023 NoteHNO ID: [id number] Author: Marco A Esqueda MD Service: ? Author Type: Physician Type: Progress Notes Filed: 02/05/2023 6:57 AM Note Text: PATIENT NAME: Pablo Felix DATE: 02/02/2023 PRIMARY CARE PHYSICIAN: Dr. Jamar Fall OTHER PHYSICIANS: Dr. Anthony Scruggs, Dr. Khan, [facility] Cardiology Portions of this encounter note have been copied from the note from 11/10/2022 and has been updated where appropriate, and reflect my current medical decision making from today. CC: This is a 77 year old male with metastatic prostate cancer, seen for scheduled follow-up and Xgeva. INTERIM HISTORY: Since the patient's last visit here he has had no significant medical changes. He remains on Xtandi 160 mg daily. He had been on Lupron every 6 months, but has injection scheduled for October [address] Scruggs. (Lupron last given March 2022). On follow-up today the patient does complain of occasional epigastric distress with nausea. No vomiting, abdominal pain, or change in bowel habits. He is eating well with no weight loss. Otherwise the patient feels well. No unusual bone pain. No difficulties with urination. MEDICATIONS: Current Outpatient Medications Medication Sig Calcium Citrate-Vitamin D3 200 mg-6.25 mcg (250 unit) tab Take 2 tablets by mouth once daily. metoprolol succinate ER (TOPROL XL) 25 mg 24 hr tablet Take by mouth. Uydhicbgydcpm-Lgkzsgdq-Vzkona (MULTIVITAMIN 50 PLUS) tab Take 1 tablet by mouth once daily. enzalutamide (XTANDI) 80 mg tablet Take 2 tablets (160 mg) by mouth once daily. GLIMEPIRIDE ORAL Take 0.5 mg by mouth once daily. metFORMIN (GLUCOPHAGE) 1,000 mg tablet Take 1,000 mg by mouth once daily. atorvastatin (LIPITOR) 40 mg tablet Take 40 mg by mouth once daily. lisinopril-hydrochlorothiazide (PRINZIDE,ZESTORETIC) 20-12.5 mg per tablet Take 1 tablet by mouth once daily. aspirin, enteric coated (ASPIRIN, ENTERIC COATED) 81 mg EC tablet Take 81 mg by mouth once daily. No current facility-administered medications for this visit. ALLERGIES: ALLERGIES Allergen Reactions Penicillins Unknown Simvastatin Unknown PAST MEDICAL HISTORY: PAST MEDICAL HISTORY Diagnosis Date CAD (coronary artery disease) Hypercholesterolemia on medication Hypertension on medication Nocturia Prostate CA (HCC) Rising PSA level 10/2021 PAST SURGICAL HISTORY: PAST SURGICAL HISTORY Procedure Laterality Date APPENDECTOMY CORONARY ARTERY BYPASS GRAFT FAMILY HISTORY: FAMILY HISTORY Problem Relation Age of Onset Cancer Mother Cancer SOCIAL HISTORY: Social History Tobacco Use Smoking status: Never Passive exposure: Never Smokeless tobacco: Never Vaping Use Vaping Use: Never used Substance Use Topics Alcohol use: Yes Comment: 1 day/wk Drug use: No REVIEW OF SYSTEMS: General: No weight loss, malaise or fevers. HEENT: Negative for frequent or significant headaches. No changes in hearing or vision, no nose bleeds or other nasal problems. Respiratory: Negative for cough, wheezing or shortness of breath. Cardiovascular: Negative for chest pain, leg swelling or palpitations. GI: Negative for abdominal discomfort, blood in stools or black stools or change in bowel habits. : No history of dysuria, frequency or incontinence. Musculoskeletal: Negative for: joint pain or swelling, back pain and muscle pain. Skin: Negative for lesions, rash and itching. Hematology/Lymphology: Negative for prolonged bleeding, bruising easily or swollen nodes. Neuro: No history of headaches, syncope, paralysis, seizures or tremors. PHYSICAL EXAM: BP (!) 131/43 Pulse (!) 50 Temp 36.2 ?C (97.2 ?F) (Temporal) Resp 16 Ht 167.6 cm (5' 5.98 ) Wt 96.6 kg (213 lb) SpO2 97% BMI 34.40 kg/m? ECOG 0 Exam limited to gross visualization where appropriate due to COVID-19. Gen.: This is an age-appropriate patient in no acute distress. Head: Appears atraumatic with no visible lesions. Eyes: Pupils equally round and reactive to light, extraocular muscles are intact. Neck: Supple. Mouth: Masked. Respiratory: Appears to be respiring comfortably. Neurologic: Nonfocal to gross visualization. Alert and oriented ?3. Psychiatric: No evidence of inappropriate anxiety or depression. Skin: Visible areas of skin without rash, lesions, wounds or petechiae. 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 Left base margin positive for neoplasm. Seminal vesicles with no diagnostic abnormality. 2 resected lymph nodes negative for neoplasm. LABS: Hemoglobin (g/dL) Date Value 02/02/2023 12.0 05/08/2018 12.8 Hematocrit (%) Date Value 02/02/2023 35.5 05/08/2018 36.8 WBC (k/uL) Date Value 02/02/2023 7.27 05/08/2018 5.63 Platelet Count (k/uL) Date Value 02/02/2023 197 05/08/2018 (more content not included)...[facility]07-20-2023 History of Present illness Narrative* Marco A Esqueda MD - 02/02/2023 7:38 AM EDT PATIENT NAME: Pablo Felix DATE: 02/02/2023 PRIMARY CARE PHYSICIAN: Dr. Jamar Fall OTHER PHYSICIANS: Dr. Anthony Scruggs, Dr. Khan, [facility] Cardiology Portions of this encounter note have been copied from the note from 11/10/2022 and has been updated where appropriate, and reflect my current medical decision making from today. CC: This is a 77 year old male with metastatic prostate cancer, seen for scheduled follow-up and Xgeva. INTERIM HISTORY: Since the patient's last visit here he has had no significant medical changes. He remains on Xtandi 160 mg daily. He had been on Lupron every 6 months, but has injection scheduled for October [address] Scruggs. (Lupron last given March 2022). On follow-up today the patient does complain of occasional epigastric distress with nausea. No vomiting, abdominal pain, or change in bowel habits. He is eating well with no weight loss. Otherwise the patient feels well. No unusual bone pain. No difficulties with urination. MEDICATIONS: Current Outpatient Medications Medication Sig Calcium Citrate-Vitamin D3 200 mg-6.25 mcg (250 unit) tab Take 2 tablets by mouth once daily. metoprolol succinate ER (TOPROL XL) 25 mg 24 hr tablet Take by mouth. Ytyrihakiofdl-Eiqmbros-Rboicq (MULTIVITAMIN 50 PLUS) tab Take 1 tablet by mouth once daily. enzalutamide (XTANDI) 80 mg tablet Take 2 tablets (160 mg) by mouth once daily. GLIMEPIRIDE ORAL Take 0.5 mg by mouth once daily. metFORMIN (GLUCOPHAGE) 1,000 mg tablet Take 1,000 mg by mouth once daily. atorvastatin (LIPITOR) 40 mg tablet Take 40 mg by mouth once daily. lisinopril-hydrochlorothiazide (PRINZIDE,ZESTORETIC) 20-12.5 mg per tablet Take 1 tablet by mouth once daily. aspirin, enteric coated (ASPIRIN, ENTERIC COATED) 81 mg EC tablet Take 81 mg by mouth once daily. No current facility-administered medications for this visit. ALLERGIES: ALLERGIES Allergen Reactions Penicillins Unknown Simvastatin Unknown PAST MEDICAL HISTORY: PAST MEDICAL HISTORY Diagnosis Date CAD (coronary artery disease) Hypercholesterolemia on medication Hypertension on medication Nocturia Prostate CA (HCC) Rising PSA level 10/2021 PAST SURGICAL HISTORY: PAST SURGICAL HISTORY Procedure Laterality Date APPENDECTOMY CORONARY ARTERY BYPASS GRAFT FAMILY HISTORY: FAMILY HISTORY Problem Relation Age of Onset Cancer Mother Cancer SOCIAL HISTORY: Social History Tobacco Use Smoking status: Never Passive exposure: Never Smokeless tobacco: Never Vaping Use Vaping Use: Never used Substance Use Topics Alcohol use: Yes Comment: 1 day/wk Drug use: No REVIEW OF SYSTEMS: General: No weight loss, malaise or fevers. HEENT: Negative for frequent or significant headaches. No changes in hearing or vision, no nose bleeds or other nasal problems. Respiratory: Negative for cough, wheezing or shortness of breath. Cardiovascular: Negative for chest pain, leg swelling or palpitations. GI: Negative for abdominal discomfort, blood in stools or black stools or change in bowel habits. : No history of dysuria, frequency or incontinence. Musculoskeletal: Negative for: joint pain or swelling, back pain and muscle pain. Skin: Negative for lesions, rash and itching. Hematology/Lymphology: Negative for prolonged bleeding, bruising easily or swollen nodes. Neuro: No history of headaches, syncope, paralysis, seizures or tremors. PHYSICAL EXAM: BP (!) 131/43 Pulse (!) 50 Temp 36.2 C (97.2 F) (Temporal) Resp 16 Ht 167.6 cm (5' 5.98 ) Wt 96.6 kg (213 lb) SpO2 97% BMI 34.40 kg/m ECOG 0 Exam limited to gross visualization where appropriate due to COVID-19. Gen.: This is an age-appropriate patient in no acute distress. Head: Appears atraumatic with no visible lesions. Eyes: Pupils equally round and reactive to light, extraocular muscles are intact. Neck: Supple. Mouth: Masked. Respiratory: Appears to be respiring comfortably. Neurologic: Nonfocal to gross visualization. Alert and oriented 3. Psychiatric: No evidence of inappropriate anxiety or depression. Skin: Visible areas of skin without rash, lesions, wounds or petechiae. 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 Left base margin positive for neoplasm. Seminal vesicles with no diagnostic abnormality. 2 resected lymph nodes negative for neoplasm. LABS: Hemoglobin (g/dL) Date Value 02/02/2023 12.0 05/08/2018 12.8 Hematocrit (%) Date Value 02/02/2023 35.5 05/08/2018 36.8 WBC (k/uL) Date Value 02/02/2023 7.27 05/08/2018 5.63 Platelet Count (k/uL) Date Value 02/02/2023 197 05/08/2018 168 PSA 01/21/2019 <0.13 09/26/2019 0.09 06/17/2020 0.43 09/07/2020 0.84 05/06/2021 1.09 07/19/2021 1.58 10/25/2021 2.64 12/30/2021 0.14 02/17/2022 0.03 05/12/2022 0.12 08/11/2022 0.11 10/25/2022 0.13 RADIOLOGY/OTHER STUDIES: 11/05/2021 CT chest/abdomen/pelvis ([facility]) Several sclerotic lesions consistent with metastatic disease. No evidence of visceral organ involvement or lymphadenopathy. 11/05/2021 Bone scan ([facility]) Multifocal osseous metastasis including the left femur at the lesser trochanter, right pubis symphysis, multiple ribs bilaterally. 01/22/2018 Nuclear bone scan ([facility]) New focal increased activity left frontal bone, left T8 vertebral body. 01/22/2018 MRI pelvis ([facility]) 4.5 cm area of T2 signal in the prostate bed. 07/24/2014 CT abdomen/pelvis ([facility]) Diffuse prostatic enlargement with indentation of the bladder base. Incidental 2.5 x 1 cm exophytic hypodense lesion adjacent to the pancreatic body. ASSESSMENT/PLAN: 1. Metastatic prostate cancer (HCC) - ICD9: 185, ICD10: C61 (primary diagnosis) The patient was diagnosed with early-stage high-grade prostate cancer in June 2014 (TRUS [id number]/02/2014). He underwent a radical prostatectomy on 11/05/2014. Pathology consistent with stage IIIC (pT2b, N0, M0), Lucrecia 5+4 equal 9. Postop the patient's PSA initially became undetectable. By December 2017 the patient's PSA increased to 0.34. Staging studies January 2018 revealed no evidence of metastases. He subsequently was started on Lupron 02/12/2018, and has received Lupron intermittently since. The patient received external beam radiation therapy to the prostate bed 02/05/2018 - 03/30/2018. The patient's PSA once again became undetectable. However, by September 2019 the PSA increased to 0.09. Lupron every 6 months was continued. Despite continuation of Lupron the patient's PSA continued to increase. By July 2021 the PSA increased to 1.58. He was seen by his urologist (Dr. Scruggs) and recommendations were to add abiraterone/prednisone to the Lupron. Unfortunately, the patient's insurance would not cover the cost of the medications. PSA obtained 10/25/2021 was further elevated at 2.64. Testosterone 10/28/2021 was adequately suppressed at <12. Bone scan obtained at [facility] 11/05/2021 revealed multiple bone metastases. CT scans showed no evidence of visceral organ involvement or suspicious lymphadenopathy. On 11/10/2021 the patient started Xtandi 160 mg daily. Antiresorptive therapy with Xgeva started 11/18/2021, with plans give every [address] Scruggs elected to hold Lupron that was scheduled for October 2022 due to low PSA of 0.13 from 10/25/2022. Currently the patient is clinically stable and his PSA has improved significantly. Options for management were discussed. The patient will continue as is with Xtandi 160 mg daily plus Xgeva every 3 months. He will receive Xgeva today. I will see him back in 3 months with labs. We will monitor his testosterone level and PSA, and would recommend that he resume Lupron if any significant changes. 2. Coronary artery disease - ICD9: 414.01, ICD10: I25.10 Status post CABG 08/17/2014 ([facility]). Stable on current medications. Continue per PCP/cardiology. 3. Essential hypertension - ICD9: 401.9, ICD10: I10 Stable on current medications. Continue per PCP/cardiology. 4. Type 2 diabetes mellitus (HCC) - ICD9: 250.00, ICD10: E11.9 Stable on current medications. Continue per PCP. 5. Pancreatic mass 2.5 cm exophytic density adjacent to the pancreatic body identified on baseline CT scans July 2014. CT directed pancreatic FNA obtained 08/22/2014 negative. Will monitor with repeat CT scan. Marco A Esqueda MD CC: Dr. Anthony Scruggs [facility]23 NoteHNO ID: [id number] Author: Christo Howard APRN.[employer] Service: ? Author Type: Nurse Practitioner Type: Progress Notes Filed: 11/10/2022 11:21 AM Note Text: PATIENT NAME: Pablo Felix DATE: 11/10/2022 PRIMARY CARE PHYSICIAN: Dr. Jamar Fall OTHER PHYSICIANS: Dr. Anthony Scruggs, Dr. Khan, [facility] Cardiology Portions of this encounter note have been copied from Marco A Esqueda MD note from 08/11/2022 and has been updated where appropriate, and reflect my current medical decision making from today. CC: This is a 77 year old male with metastatic prostate cancer, seen for scheduled follow-up and Xgeva. INTERIM HISTORY: Pablo Felix returns for follow-up. He remains on Xtandi 160 mg daily which she takes after supper. He is tolerating the Xtandi without any significant side effects. He saw Dr. Scruggs and because his last PSA on 10/25/[address] Scruggs elected to hold the Lupron. Dr. Scruggs will see the patient back in 6 months and revisit whether to continue to hold or resume the Lupron based on his PSA. Was he has diarrhea which she takes a half of an Imodium pill with lunch which takes care of the diarrhea. He denies any unusual pain including bone pain. He has chronic arthritic pain. He denies fevers, chills, night sweats and signs/symptoms of infection. He denies bleeding and abnormal bruising. He has no problems with urination. He denies pain, burning and difficulty with urination. MEDICATIONS: Current Outpatient Medications Medication Sig Calcium Citrate-Vitamin D3 200 mg-6.25 mcg (250 unit) tab Take 2 tablets by mouth once daily. metoprolol succinate ER (TOPROL XL) 25 mg 24 hr tablet Take by mouth. Qixzsdywtuyxp-Nvsskcij-Psltnx (MULTIVITAMIN 50 PLUS) tab Take 1 tablet by mouth once daily. enzalutamide (XTANDI) 80 mg tablet Take 2 tablets (160 mg) by mouth once daily. GLIMEPIRIDE ORAL Take 0.5 mg by mouth once daily. metFORMIN (GLUCOPHAGE) 1,000 mg tablet Take 1,000 mg by mouth once daily. atorvastatin (LIPITOR) 40 mg tablet Take 40 mg by mouth once daily. lisinopril-hydrochlorothiazide (PRINZIDE,ZESTORETIC) 20-12.5 mg per tablet Take 1 tablet by mouth once daily. aspirin, enteric coated (ASPIRIN, ENTERIC COATED) 81 mg EC tablet Take 81 mg by mouth once daily. No current facility-administered medications for this visit. ALLERGIES: ALLERGIES Allergen Reactions Penicillins Unknown Simvastatin Unknown PAST MEDICAL HISTORY: PAST MEDICAL HISTORY Diagnosis Date CAD (coronary artery disease) Hypercholesterolemia on medication Hypertension on medication Nocturia Prostate CA (HCC) Rising PSA level 10/2021 PAST SURGICAL HISTORY: PAST SURGICAL HISTORY Procedure Laterality Date APPENDECTOMY CORONARY ARTERY BYPASS GRAFT FAMILY HISTORY: FAMILY HISTORY Problem Relation Age of Onset Cancer Mother Cancer SOCIAL HISTORY: Social History Tobacco Use Smoking status: Never Passive exposure: Never Smokeless tobacco: Never Vaping Use Vaping Use: Never used Substance Use Topics Alcohol use: Yes Comment: 1 day/wk Drug use: No REVIEW OF SYSTEMS: General: No weight loss, malaise or fevers. HEENT: Negative for frequent or significant headaches. No changes in hearing or vision, no nose bleeds or other nasal problems. Respiratory: Negative for cough, wheezing or shortness of breath. Cardiovascular: Negative for chest pain, leg swelling or palpitations. GI: Negative for abdominal discomfort, blood in stools or black stools or change in bowel habits. : No history of dysuria, frequency or incontinence. Musculoskeletal: Negative for: joint pain or swelling, back pain and muscle pain. Skin: Negative for lesions, rash and itching. Hematology/Lymphology: Negative for prolonged bleeding, bruising easily or swollen nodes. Neuro: No history of headaches, syncope, paralysis, seizures or tremors. PHYSICAL EXAM: BP 134/68 Pulse (!) 54 Temp 36.2 ?C (97.1 ?F) (Temporal) Resp 16 Ht 167.6 cm (5' 5.98 ) Wt 96.4 kg (212 lb 9.6 oz) SpO2 98% BMI 34.33 kg/m? ECOG 0 Exam limited to gross visualization where appropriate due to COVID-19. Gen.: This is an age-appropriate patient in no acute distress. Head: Appears atraumatic with no visible lesions. Eyes: Pupils equally round and reactive to light, extraocular muscles are intact. Neck: Supple. Mouth: Masked. Respiratory: Appears to be respiring comfortably. Neurologic: Nonfocal to gross visualization. Alert and oriented ?3. Psychiatric: No evidence of inappropriate anxiety or depression. Skin: Visible areas of skin without rash, lesions, wounds or petechiae. 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 Left base margin positive for neoplasm. Seminal vesicles with no diagnostic abnormality. 2 resected lymph node (more content not included)...[facility] 11-10-2022 History of Present illness Narrative* Christo Howard APRN.[employer] OPERATOR - 11/10/2022 10:00 AM EDT PATIENT NAME: Pablo Felix DATE: 11/10/2022 PRIMARY CARE PHYSICIAN: Dr. Jamar Fall OTHER PHYSICIANS: Dr. Anthony Scruggs, Dr. Khan, [facility] Cardiology Portions of this encounter note have been copied from Marco A Esqueda MD note from 08/11/2022 and has been updated where appropriate, and reflect my current medical decision making from today. CC: This is a 77 year old male with metastatic prostate cancer, seen for scheduled follow-up and Xgeva. INTERIM HISTORY: Pablo Felix returns for follow-up. He remains on Xtandi 160 mg daily which she takes after supper. He is tolerating the Xtandi without any significant side effects. He saw Dr. Scruggs and because his last PSA on 10/25/[address] Scruggs elected to hold the Lupron. Dr. Scruggs will see the patient back in 6 months and revisit whether to continue to hold or resume the Lupron based on his PSA. Was he has diarrhea which she takes a half of an Imodium pill with lunch which takes care of the diarrhea. He denies any unusual pain including bone pain. He has chronic arthritic pain. He denies fevers, chills, night sweats and signs/symptoms of infection. He denies bleeding and abn ormal bruising. He has no problems with urination. He denies pain, burning and difficulty with urination. MEDICATIONS: Current Outpatient Medications Medication Sig Calcium Citrate-Vitamin D3 200 mg-6.25 mcg (250 unit) tab Take 2 tablets by mouth once daily. metoprolol succinate ER (TOPROL XL) 25 mg 24 hr tablet Take by mouth. Qolrhvycnagkg-Ghyojouf-Tlmdid (MULTIVITAMIN 50 PLUS) tab Take 1 tablet by mouth once daily. enzalutamide (XTANDI) 80 mg tablet Take 2 tablets (160 mg) by mouth once daily. GLIMEPIRIDE ORAL Take 0.5 mg by mouth once daily. metFORMIN (GLUCOPHAGE) 1,000 mg tablet Take 1,000 mg by mouth once daily. atorvastatin (LIPITOR) 40 mg tablet Take 40 mg by mouth once daily. lisinopril-hydrochlorothiazide (PRINZIDE,ZESTORETIC) 20-12.5 mg per tablet Take 1 tablet by mouth once daily. aspirin, enteric coated (ASPIRIN, ENTERIC COATED) 81 mg EC tablet Take 81 mg by mouth once daily. No current facility-administered medications for this visit. ALLERGIES: ALLERGIES Allergen Reactions Penicillins Unknown Simvastatin Unknown PAST MEDICAL HISTORY: PAST MEDICAL HISTORY Diagnosis Date CAD (coronary artery disease) Hypercholesterolemia on medication Hypertension on medication Nocturia Prostate CA (HCC) Rising PSA level 10/2021 PAST SURGICAL HISTORY: PAST SURGICAL HISTORY Procedure Laterality Date APPENDECTOMY CORONARY ARTERY BYPASS GRAFT FAMILY HISTORY: FAMILY HISTORY Problem Relation Age of Onset Cancer Mother Cancer SOCIAL HISTORY: Social History Tobacco Use Smoking status: Never Passive exposure: Never Smokeless tobacco: Never Vaping Use Vaping Use: Never used Substance Use Topics Alcohol use: Yes Comment: 1 day/wk Drug use: No REVIEW OF SYSTEMS: General: No weight loss, malaise or fevers. HEENT: Negative for frequent or significant headaches. No changes in hearing or vision, no nose bleeds or other nasal problems. Respiratory: Negative for cough, wheezing or shortness of breath. Cardiovascular: Negative for chest pain, leg swelling or palpitations. GI: Negative for abdominal discomfort, blood in stools or black stools or change in bowel habits. : No history of dysuria, frequency or incontinence. Musculoskeletal: Negative for: joint pain or swelling, back pain and muscle pain. Skin: Negative for lesions, rash and itching. Hematology/Lymphology: Negative for prolonged bleeding, bruising easily or swollen nodes. Neuro: No history of headaches, syncope, paralysis, seizures or tremors. PHYSICAL EXAM: BP 134/68 Pulse (!) 54 Temp 36.2 C (97.1 F) (Temporal) Resp 16 Ht 167.6 cm (5' 5.98 ) Wt 96.4 kg (212 lb 9.6 oz) SpO2 98% BMI 34.33 kg/m ECOG 0 Exam limited to gross visualization where appropriate due to COVID-19. Gen.: This is an age-appropriate patient in no acute distress. Head: Appears atraumatic with no visible lesions. Eyes: Pupils equally round and reactive to light, extraocular muscles are intact. Neck: Supple. Mouth: Masked. Respiratory: Appears to be respiring comfortably. Neurologic: Nonfocal to gross visualization. Alert and oriented 3. Psychiatric: No evidence of inappropriate anxiety or depression. Skin: Visible areas of skin without rash, lesions, wounds or petechiae. 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 Left base margin positive for neoplasm. Seminal vesicles with no diagnostic abnormality. 2 resected lymph nodes negative for neoplasm. LABS: Hemoglobin (g/dL) Date Value 11/10/2022 12.3 05/08/2018 12.8 Hematocrit (%) Date Value 11/10/2022 36.4 05/08/2018 36.8 WBC (k/uL) Date Value 11/10/2022 7.73 05/08/2018 5.63 Platelet Count (k/uL) Date Value 11/10/2022 206 05/08/2018 168 01/21/2019 PSA <0.13 09/26/2019 PSA 0.09 06/17/2020 PSA 0.43 09/07/2020 PSA 0.84 05/06/2021 PSA 1.09 07/19/2021 PSA 1.58 10/25/2021 PSA 2.64 12/30/2021 PSA 0.14 02/17/2022 PSA 0.03 05/12/2022 PSA 0.12 08/11/2022 PSA 0.11 10/25/2022 PSA 0.13 RADIOLOGY/OTHER STUDIES: 11/05/2021 CT chest/abdomen/pelvis ([facility]) Several sclerotic lesions consistent with metastatic disease. No evidence of visceral organ involvement or lymphadenopathy. 11/05/2021 Bone scan ([facility]) Multifocal osseous metastasis including the left femur at the lesser trochanter, right pubis symphysis, multiple ribs bilaterally. 01/22/2018 Nuclear bone scan ([facility]) New focal increased activity left frontal bone, left T8 vertebral body. 01/22/2018 MRI pelvis ([facility]) 4.5 cm area of T2 signal in the prostate bed. 07/24/2014 CT abdomen/pelvis ([facility] Diffuse prostatic enlargement with indentation of the bladder base. Incidental 2.5 x 1 cm exophytic hypodense lesion adjacent to the pancreatic body. ASSESSMENT/PLAN: 1. Metastatic prostate cancer (HCC) - ICD9: 185, ICD10: C61 (primary diagnosis) The patient was diagnosed with early-stage high-grade prostate cancer in June 2014 ([facility]US [id number]). He underwent a radical prostatectomy on 11/05/2014. Pathology consistent with stage IIIC (pT2b, N0, M0), Ponce 5+4 equal 9. Postop the patient's PSA initially became undetectable. By December 2017 the patient's PSA increased to 0.34. Staging studies January 2018 revealed no evidence of metastases. He subsequently was started on Lupron 02/12/2018, and has received Lupron intermittently since. The patient received external beam radiation therapy to the prostate bed 02/05/2018 - 03/30/2018. The patient's PSA once again became undetectable. However, by September 2019 the PSA increased to 0.09. Lupron every 6 months was continued. Despite continuation of Lupron the patient's PSA continued to increase. By July 2021 the PSA increased to 1.58. He was seen by his urologist (Dr. Scruggs) and recommendations were to add abiraterone/prednisone to the Lupron. Unfortunately, the patient's insurance would not cover the cost of the medications. PSA obtained 10/25/2021 was further elevated at 2.64. Testosterone 10/28/2021 was adequately suppressed at <12. Bone scan obtained at [facility] 11/05/2021 revealed multiple bone metastases. CT scans showed no evidence of visceral organ involvement or suspicious lymphadenopathy. On 11/10/2021 the patient started Xtandi 160 mg daily. Lupron every 6 months continued (per Dr. Scruggs) - next due October 2022. Dr. Scruggs elected to hold the Lupron injection that was due in October dueto low PSA of 0.13 from 10/25/2022. Antiresorptive therapy with Xgeva started 11/18/2021, with plans give every 3 months. Currently the patient is clinically stable and his PSA has improved significantly. The patient will continue as is with Xtandi. He will receive Xgeva today as scheduled. We will see him back in 3 months for follow-up and labs. If his PSA increases we will restage. If/when progressive disease is identified further treatment options will be discussed. 2. Coronary artery disease - ICD9: 414.01, ICD10: I25.10 Status post CABG 08/17/2014 ([facility]). Stable on current medications. Continue per PCP/cardiology. 3. Essential hypertension - ICD9: 401.9, ICD10: I10 Stable on current medications. Continue per PCP/cardiology. 4. Type 2 diabetes mellitus (HCC) - ICD9: 250.00, ICD10: E11.9 Stable on current medications. Continue per PCP. 5. Pancreatic mass 2.5 cm exophytic density adjacent to the pancreatic body identified on baseline CT scans July 2014. CT directed pancreatic FNA obtained 08/22/2014 negative. Will monitor with repeat CT scan. Christo Howard APRN.[employer] OPERATOR CC: Dr. Anthony Scruggs I spent a total of 30 minutes on the date of the service which included preparing to see the patient, [id number] patient care, completing clinical documentation, obtaining and/or reviewing separately obtained history, performing a medically appropriate examination, counseling and educating the pat ient/family/caregiver, ordering medications, tests, or procedures, independently interpreting results (not separately reported), and communicating results to the patient/family/caregiver. [facility]* Encounter Date Diagnosis Assessment Notes Treatment Notes Treatment Clinical Notes Sep, Pain in right shoulder (ICD-10 - M25.511) IA injection w/o complications. Discussed treatment options, if desires to avoid surgery can have injections every 3 mo Sep, Primary osteoarthritis, right shoulder (ICD-10 - M19.011) ROM exercises, ice/heat and Tylenol Sep, Other chronic pain (ICD-10 - G89.29) Sep, Type 2 diabetes mellitus with hyperglycemia, without long-term current use of insulin (ICD-10 - E11.65) IA injection w/ Kenalog, may increase BS slightly [facility] Other 02-24-2023 Evaluation note* Encounter Date Diagnosis Assessment Notes Treatment Notes Treatment Clinical Notes Aug, ASHD (arteriosclerotic heart disease) (ICD-10 - I25.10) This patient is stable without activity related CP, dyspnea or lightheadedness. They are instructed to continue exercise and AHA diet plan. Aug, Encounter for annual wellness exam in Medicare patient (ICD-10 - Z00.00) Personalized health advice was given to the beneficiary including a written plan for screenings discussed and provided. Advanced care planning reviewed and/or information given as requested. Additional counseling was provided here today in regards to, [ ]. The above visit was performed by [ ] under direct supervision of [ ]. Document reviewed and amended by provider signed below. Healthy diet and exercise. Reviewed age-appropriate preventive testing recommended. Aug, Nonrheumatic aortic valve stenosis (ICD-10 - I35.0) 04/2022 Echo: ROGER 1.13, Velocity 324, Continue to control BP. No CP, tachycardia or syncope. Serial Echo Aug, Primary hypertension (ICD-10 - I10) This patient is instructed to consume a healthy, low-fat, low-salt diet. They are also encouraged to continue exercise to achieve/maintain a normal BMI. Aug, Elevated cholesterol (ICD-10 - E78.00) Diet and exercise with continued statin therapy. Aug, GRADY (obstructive sleep apnea) (ICD-10 - G47.33) This patient is aware of the benefits associated with GRADY: With continued use, the patient reduces the risk for MT, CVA, HTN, cardiac dysrhythmias and sudden cardiac deaths.The patient is also aware of the association between GRADY and morning headaches, daytime somnolence, fatigue and obesity, which also has been improved with continued use.The patient is compliant with treatment, wearing the equipment every night for greater than 4 hours.The patient is instructed to continue use of the CPAP for GRADY treatment. Aug, Type 2 diabetes mellitus with hyperglycemia, without long-term current use of insulin (ICD-10 - E11.65) This patient is following a comprehensive diabetic treatment plan. They are checking their feet daily for calluses and nonhealing ulcers. They are being seen for yearly dilated eye examinations. Goals: SBP less than 130, LDL less than 100, FBS less than 140, AC and A1C less than 7%. They are checking their BS daily, will which are reviewed at the office visit. A1C: Reviewed A1C at goal Aug, Primary osteoarthritis, right shoulder (ICD-10 - M19.011) ROM exercises: handouts given to patient Ice/heat and Tylenol as needed. PT, IA injection discussed Symptoms not suggestive of rotator cuff tear Aug, Obesity (BMI 30-39.9) (ICD-10 - E66.9) This patient has been instructed on a low-fat, high-fiber diet. They are instructed to reduce calories, portion sizes and snacks. It is recommended that they exercise for 30 minutes, 3-5 times weekly. Aug, Prostate cancer (ICD-10 - C61) Receiving Lupron along w/ additional oral chemotherapy from [facility] Oncology. Also receiving Boniva Aug, Other Personalized he alth advice was given to the beneficiary including a written plan for screenings discussed and provided. Advanced care planning reviewed and/or information given as requested. Additional counseling was provided here today in regards to, [ ]. The above visit was performed by [ ] under direct supervision of [ ]. Document reviewed and amended by provider signed below. [facility] Other 01-26-2023 NoteHNO ID: [id number] Author: Marco A Esqueda MD Service: ? Author Type: Physician Type: Progress Notes Filed: 08/12/2022 7:59 AM Note Text: PATIENT NAME: Pablo Felix DATE: 08/11/2022 PRIMARY CARE PHYSICIAN: Dr. Jamar Fall OTHER PHYSICIANS: Dr. Anthony Scruggs, Dr. Khan, [facility] Cardiology Portions of this encounter note have been copied from my note from 05/12/2022 and has been updated where appropriate, and reflect my current medical decision making from today. CC: This is a 77 year old male with metastatic prostate cancer, seen for scheduled follow-up and Xgeva. INTERIM HISTORY: Since the patient's last visit here he has had no significant medical changes. He remains on Xtandi 160 mg daily and is tolerating it well. He receives Lupron every [address] Scruggs, last given April 2022. On follow-up today he feels well. He denies any significant pain or other systemic symptoms. No difficulties with urination. MEDICATIONS: Current Outpatient Medications Medication Sig Calcium Citrate-Vitamin D3 200 mg-6.25 mcg (250 unit) tab Take 2 tablets by mouth once daily. metoprolol succinate ER (TOPROL XL) 25 mg 24 hr tablet Take by mouth. Ieemvajgxofdt-Ayiaihvo-Dshmpy (MULTIVITAMIN 50 PLUS) tab Take 1 tablet by mouth once daily. enzalutamide (XTANDI) 80 mg tablet Take 2 tablets (160 mg) by mouth once daily. GLIMEPIRIDE ORAL Take 0.5 mg by mouth once daily. metFORMIN (GLUCOPHAGE) 1,000 mg tablet Take 1,000 mg by mouth once daily. atorvastatin (LIPITOR) 40 mg tablet Take 40 mg by mouth once daily. lisinopril-hydrochlorothiazide (PRINZIDE,ZESTORETIC) 20-12.5 mg per tablet Take 1 tablet by mouth once daily. aspirin, enteric coated (ASPIRIN, ENTERIC COATED) 81 mg EC tablet Take 81 mg by mouth once daily. No current facility-administered medications for this visit. ALLERGIES: ALLERGIES Allergen Reactions Penicillins Unknown Simvastatin Unknown PAST MEDICAL HISTORY: PAST MEDICAL HISTORY Diagnosis Date CAD (coronary artery disease) Hypercholesterolemia on medication Hypertension on medication Nocturia Prostate CA (HCC) Rising PSA level 10/2021 PAST SURGICAL HISTORY: PAST SURGICAL HISTORY Procedure Laterality Date APPENDECTOMY CORONARY ARTERY BYPASS GRAFT FAMILY HISTORY: FAMILY HISTORY Problem Relation Age of Onset Cancer Mother Cancer SOCIAL HISTORY: Social History Tobacco Use Smoking status: Never Smokeless tobacco: Never Vaping Use Vaping Use: Never used Substance Use Topics Alcohol use: Yes Comment: 1 day/wk Drug use: No REVIEW OF SYSTEMS: General: No weight loss, malaise or fevers. HEENT: Negative for frequent or significant headaches. No changes in hearing or vision, no nose bleeds or other nasal problems. Respiratory: Negative for cough, wheezing or shortness of breath. Cardiovascular: Negative for chest pain, leg swelling or palpitations. GI: Negative for abdominal discomfort, blood in stools or black stools or change in bowel habits. : No history of dysuria, frequency or incontinence. Musculoskeletal: Negative for: joint pain or swelling, back pain and muscle pain. Skin: Negative for lesions, rash and itching. Hematology/Lymphology: Negative for prolonged bleeding, bruising easily or swollen nodes. Neuro: No history of headaches, syncope, paralysis, seizures or tremors. PHYSICAL EXAM: BP 129/56 Pulse (!) 53 Temp 36.1 ?C (97 ?F) (Temporal) Resp 16 Ht 167.6 cm (5' 5.98 ) Wt 96.4 kg (212 lb 9.6 oz) SpO2 97% BMI 34.33 kg/m? ECOG 0 Exam limited to gross visualization where appropriate due to COVID-19. Gen.: This is an age-appropriate patient in no acute distress. Head: Appears atraumatic with no visible lesions. Eyes: Pupils equally round and reactive to light, extraocular muscles are intact. Neck: Supple. Mouth: Masked. Respiratory: Appears to be respiring comfortably. Neurologic: Nonfocal to gross visualization. Alert and oriented ?3. Psychiatric: No evidence of inappropriate anxiety or depression. Skin: Visible areas of skin without rash, lesions, wounds or petechiae. 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 Left base margin positive for neoplasm. Seminal vesicles with no diagnostic abnormality. 2 resected lymph nodes negative for neoplasm. LABS: Hemoglobin (g/dL) Date Value 08/11/2022 11.9 05/08/2018 12.8 Hematocrit (%) Date Value 08/11/2022 35.6 05/08/2018 36.8 WBC (k/uL) Date Value 08/11/2022 7.86 05/08/2018 5.63 Platelet Count (k/uL) Date Value 08/11/2022 225 05/08/2018 168 01/21/2019 PSA <0.13 09/26/2019 PSA 0.09 06/17/2020 PSA 0.43 09/07/2020 PSA 0.84 05/06/2021 PSA 1.09 07/19/2021 PSA 1.58 10/25/2021 PSA 2.64 12/30/2021 PSA 0.14 02/17/2022 PSA 0.03 05/12/2022 PSA 0.12 (more content not included)...[facility]01-26-2023 History of Present illness Narrative* Marco A Esqueda MD - 08/11/2022 7:42 AM EST PATIENT NAME: Pablo Felix DATE: 08/11/2022 PRIMARY CARE PHYSICIAN: Dr. Jamar Fall OTHER PHYSICIANS: Dr. Anthony Scruggs, Dr. Khan, [facility] Cardiology Portions of this encounter note have been copied from my note from 05/12/2022 and has been updated where appropriate, and reflect my current medical decision making from today. CC: This is a 77 year old male with metastatic prostate cancer, seen for scheduled follow-up and Xgeva. INTERIM HISTORY: Since the patient's last visit here he has had no significant medical changes. He remains on Xtandi 160 mg daily and is tolerating it well. He receives Lupron every [address] Scruggs, last given April 2022. On follow-up today he feels well. He denies any significant pain or other systemic symptoms. No difficulties with urination. MEDICATIONS: Current Outpatient Medications Medication Sig Calcium Citrate-Vitamin D3 200 mg-6.25 mcg (250 unit) tab Take 2 tablets by mouth once daily. metoprolol succinate ER (TOPROL XL) 25 mg 24 hr tablet Take by mouth. Tdfwluyjszgxj-Eedaasnd-Nthjeg (MULTIVITAMIN 50 PLUS) tab Take 1 tablet by mouth once daily. enzalutamide (XTANDI) 80 mg tablet Take 2 tablets (160 mg) by mouth once daily. GLIMEPIRIDE ORAL Take 0.5 mg by mouth once daily. metFORMIN (GLUCOPHAGE) 1,000 mg tablet Take 1,000 mg by mouth once daily. atorvastatin (LIPITOR) 40 mg tablet Take 40 mg by mouth once daily. lisinopril-hydrochlorothiazide (PRINZIDE,ZESTORETIC) 20-12.5 mg per tablet Take 1 tablet by mouth once daily. aspirin, enteric coated (ASPIRIN, ENTERIC COATED) 81 mg EC tablet Take 81 mg by mouth once daily. No current facility-administered medications for this visit. ALLERGIES: ALLERGIES Allergen Reactions Penicillins Unknown Simvastatin Unknown PAST MEDICAL HISTORY: PAST MEDICAL HISTORY Diagnosis Date CAD (coronary artery disease) Hypercholesterolemia on medication Hypertension on medication Nocturia Prostate CA (HCC) Rising PSA level 10/2021 PAST SURGICAL HISTORY: PAST SURGICAL HISTORY Procedure Laterality Date APPENDECTOMY CORONARY ARTERY BYPASS GRAFT FAMILY HISTORY: FAMILY HISTORY Problem Relation Age of Onset Cancer Mother Cancer SOCIAL HISTORY: Social History Tobacco Use Smoking status: Never Smokeless tobacco: Never Vaping Use Vaping Use: Never used Substance Use Topics Alcohol use: Yes Comment: 1 day/wk Drug use: No REVIEW OF SYSTEMS: General: No weight loss, malaise or fevers. HEENT: Negative for frequent or significant headaches. No changes in hearing or vision, no nose bleeds or other nasal problems. Respiratory: Negative for cough, wheezing or shortness of breath. Cardiovascular: Negative for chest pain, leg swelling or palpitations. GI: Negative for abdominal discomfort, blood in stools or black stools or change in bowel habits. : No history of dysuria, frequency or incontinence. Musculoskeletal: Negative for: joint pain or swelling, back pain and muscle pain. Skin: Negative for lesions, rash and itching. Hematology/Lymphology: Negative for prolonged bleeding, bruising easily or swollen nodes. Neuro: No history of headaches, syncope, paralysis, seizures or tremors. PHYSICAL EXAM: BP 129/56 Pulse (!) 53 Temp 36.1 C (97 F) (Temporal) Resp 16 Ht 167.6 cm (5'5.98 ) Wt 96.4 kg (212 lb 9.6 oz) SpO2 97% BMI 34.33 kg/m ECOG 0 Exam limited to gross visualization where appropriate due to COVID-19. Gen.: This is an age-appropriate patient in no acute distress. Head: Appears atraumatic with no visible lesions. Eyes: Pupils equally round and reactive to light, extraocular muscles are intact. Neck: Supple. Mouth: Masked. Respiratory: Appears to be respiring comfortably. Neurologic: Nonfocal to gross visualization. Alert and oriented 3. Psychiatric: No evidence of inappropriate anxiety or depression. Skin: Visible areas of skin without rash, lesions, wounds or petechiae. 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 Left base margin positive for neoplasm. Seminal vesicles with no diagnostic abnormality. 2 resected lymph nodes negative for neoplasm. LABS: Hemoglobin (g/dL) Date Value 08/11/2022 11.9 05/08/2018 12.8 Hematocrit (%) Date Value 08/11/2022 35.6 05/08/2018 36.8 WBC (k/uL) Date Value 08/11/2022 7.86 05/08/2018 5.63 Platelet Count (k/uL) Date Value 08/11/2022 225 05/08/2018 168 01/21/2019 PSA <0.13 09/26/2019 PSA 0.09 06/17/2020 PSA 0.43 09/07/2020 PSA 0.84 05/06/2021 PSA 1.09 07/19/2021 PSA 1.58 10/25/2021 PSA 2.64 12/30/2021 PSA 0.14 02/17/2022 PSA 0.03 05/12/2022 PSA 0.12 08/11/2022 PSA RADIOLOGY/OTHER STUDIES: 11/05/2021 CT chest/abdomen/pelvis ([facility]) Several sclerotic lesions consistent with metastatic disease. No evidence of visceral organ involvement or lymphadenopathy. 11/05/2021 Bone scan ([facility]) Multifocal osseous metastasis including the left femur at the lesser trochanter, right pubis symphysis, multiple ribs bilaterally. 01/22/2018 Nuclear bone scan ([facility]) New focal increased activity left frontal bone, left T8 vertebral body. 01/22/2018 MRI pelvis ([facility]) 4.5 cm area of T2 signal in the prostate bed. 07/24/2014 CT abdomen/pelvis [place] Diffuse prostatic enlargement with indentation of the bladder base. Incidental 2.5 x 1 cm exophytic hypodense lesion adjacent to the pancreatic body. ASSESSMENT/PLAN: 1. Metastatic prostate cancer (HCC) - ICD9: 185, ICD10: C61 (primary diagnosis) The patient was diagnosed with early-stage high-grade prostate cancer in June 2014 ([facility]US [id number]/02/2014). He underwent a radical prostatectomy on 11/05/2014. Pathology consistent with stage IIIC (pT2b, N0, M0), Lucrecia 5+4 equal 9. Postop the patient's PSA initially became undetectable. By December 2017 the patient's PSA increased to 0.34. Staging studies January 2018 revealed no evidence of metastases. He subsequently was started on Lupron 02/12/2018, and has received Lupron intermittently since. The patient received external beam radiation therapy to the prostate bed 02/05/2018 - 03/30/2018. The patient's PSA once again became undetectable. However, by September 2019 the PSA increased to 0.09. Lupron every 6 months was continued. Despite continuation of Lupron the patient's PSA continued to increase. By July 2021 the PSA increased to 1.58. He was seen by his urologist (Dr. Scruggs) and recommendations were to add abiraterone/prednisone to the Lupron. Unfortunately, the patient's insurance would not cover the cost of the medications. PSA obtained 10/25/2021 was further elevated at 2.64. Testosterone 10/28/2021 was adequately suppressed at <12. Bone scan obtained at [facility] 11/05/2021 revealed multiple bone metastases. CT scans showed no evidence of visceral organ involvement or suspicious lymphadenopathy. On 11/10/2021 the patient started Xtandi 160 mg daily. Lupron every 6 months continued (per Dr. Scruggs) - next due October 2022. Antiresorptive therapy with Xgeva started 11/18/2021, with plans give every3 months. Currently the patient is clinically stable and his PSA has improved significantly. The patient will continue as is with Xtandi and Lupron. He will receive his next Lupron per Dr. Scruggs October 2022. He will receive Xgeva today as scheduled. We will see him back in 3 months for follow-up and labs. If his PSA increases we will restage. If/when progressive disease is identified further treatment options will be discussed. 2. Coronary artery disease - ICD9: 414.01, ICD10: I25.10 Status post CABG 08/17/2014 ([facility]). Stable on current medications. Continue per PCP/cardiology. 3. Essential hypertension - ICD9: 401.9, ICD10: I10 Stable on current medications. Continue per PCP/cardiology. 4. Type 2 diabetes mellitus (HCC) - ICD9: 250.00, ICD10: E11.9 Stable on current medications. Continue per PCP. 5. Pancreatic mass 2.5 cm exophytic density adjacent to the pancreatic body identified on baseline CT scans July 2014. CT directed pancreatic FNA obtained 08/22/2014 negative. Will monitor with repeat CT scan. Marco A Esqueda MD CC: Dr. Anthony Scruggs documented in [facility]Tr[facility] NotePROCEDURE: XR SHOULDER LT 2V or > HISTORY: Pain of left shoulder joint , limited range of motion, no known injury COMPARISON: None. FINDINGS: BONES:Narrowing of the acromioclavicular joint and glenohumeral joint. No fracture, dislocation, or significant degenerative osteophytes. SOFT TISSUES:No visible soft tissue swelling. EFFUSION:None visible. OTHER: Negative. IMPRESSION: 1. Mild/moderate degenerative joint disease. 2. No appreciable acute abnormality. Electronically authenticated by: CYNTHIA TORRES Date: 2022-07-21 15:46[facility]01-05-2023 Evaluation note* Encounter Date Diagnosis Assessment Notes Treatment Notes Treatment Clinical Notes Jul, Cervical spondylosis with radiculopathy (ICD-10 - M47.22) ROM exercises, heat/ice and Tylenol 1000mg tid. Initiated Tramadol w/ caution, no driving, may cause sedation. Jul, Acute pain of left shoulder (ICD-10 - M25.512) ROM exercises, Tylenol and Tramadol as needed. Jul, Annual physical exam (ICD-10 - Z00.00) N-Trig Other 10-28-2022 Hospital Discharge instructions Patient Education 05/13/2022 09:33:17 Prostate Cancer Prostate Cancer The prostate is a walnut-sized gland that is involved in the production of semen. It is located below a man's bladder, in front of the rectum. Prostate cancer is the abnormal growth of cells in the prostate gland. What are the causes? The exact cause of this condition is not known. What increases the risk? This condition is more likely to develop in men who: Are older than age 65. Are -[place]. Are obese. Have a family history of prostate cancer. Have a family history of breast cancer. What are the signs or symptoms? Symptoms of this condition include: A need to urinate often. Weak or interrupted flow of urine. Trouble starting or stopping urination. Inability to urinate. Pain or burning during urination. Painful ejaculation. Blood in urine or semen. Persistent pain or discomfort in the lower back, lower abdomen, hips, or upper thighs. Trouble getting an erection. Trouble emptying the bladder all the way. How is this diagnosed? This condition can be diagnosed with: A digital rectal exam. For this exam, a health care provider inserts a gloved finger into the rectum to feel the prostate gland. A blood test called a prostate-specific antigen (PSA) test. An imaging test called transrectal ultrasonography. A procedure in which a sample of tissue is taken from the prostate and examined under a microscope (prostate biopsy). Once the condition is diagnosed, tests will be done to determine how far the cancer has spread. This is called staging the cancer. Staging may involve imaging tests, such as: A bone scan. A CT scan. A PET scan. An MRI. The stages of prostate cancer are as follows: Stage I. At this stage, the cancer is found in the prostate only. The cancer is not visible on imaging tests and it is usually found by accident, such as during a prostate surgery. Stage II. At this stage, the cancer is more advanced than it is in stage I, but the cancer has not spread outside the prostate. Stage III. At this stage, the cancer has spread beyond the outer layer of the prostate to nearby tissues. The cancer may be found in the seminal vesicles, which are near the bladder and the prostate. Stage IV. At this stage, the cancer has spread other parts of the body, such as the lymph nodes, bones, bladder, rectum, liver, or lungs. How is this treated? Treatment for this condition depends on several factors, including the stage of the cancer, your age, personal preferences, and your overall health. Talk with your health care provider about treatment options that are recommended for you. Common treatments include: Observation for early stage prostate cancer (active surveillance). This involves having exams, blood tests, and in some cases, more biopsies. For some men, this is the only treatment needed. Surgery. Types of surgeries include: ?Open surgery. In this surgery, a larger incision is made to remove the prostate. ?A laparoscopic prostatectomy. This is a surgery to remove the prostate and lymph nodes through several, small incisions. It is often referred to as a minimally invasive surgery. ?A robotic prostatectomy. This is a surgery to remove the prostate and lymph nodes with the help ofa robotic arm that is controlled by a computer. ?Orchiectomy. This is a surgery to remove the testicles. ?Cryosurgery. This is a surgery to freeze and destroy cancer cells. Radiation treatment. Types of radiation treatment include: ?External beam radiation. This type aims beams of radiation from outside the body at the prostate to destroy cancerous cells. ?Brachytherapy. This type uses radioactive needles, seeds, wires, or tubes that are implanted into the prostate gland. Like external beam radiation, brachytherapy destroys cancerous cells. An advantage is that this type of radiation limits the damage to surrounding tissue and has fewer side effects. High-intensity, focused ultrasonography. This treatment destroys cancer cells by delivering high-energy ultrasound waves to the cancerous cells. Chemotherapy medicines. This treatment kills cancer cells or stops them from multiplying. Hormone treatment. This treatment involves taking medicines that act on one of the male hormones (testosterone): ?By stopping your body from producing testosterone. ?By blocking testosterone from reaching cancer cells. Follow these instructions at home: Take evtn-uct-dbhqfxm and prescription medicines only as told by your health care provider. Maintain a healthy diet. Get plenty of sleep. Consider joining a support group for men who have prostate cancer. Meeting with a support group mayhelp you learn to cope with the stress of having cancer. Keep all follow-up visits as told by your health care provider. This is important. If you have to go to the hospital, notify your cancer specialist (oncologist). Treatment for prostate cancer may affect sexual function. Continue to have intimate moments with your partner. This may include touching, holding, hugging, and caressing. Contact a health care provider if: You have trouble urinating. You have blood in your urine. You have pain in your hips, back, or chest. Get help right away if: You have weakness or numbness in your legs. You cannot control urination or your bowel movements (incontinence). You have trouble breathing. You have sudden chest pain. You have chills or a fever. Summary The prostate is a walnut-sized gland that is involved in the production of semen. It is located below a man's bladder, in front of the rectum. Prostate cancer is the abnormal growth of cells in the prostate gland. Treatment for this condition depends on several factors, including the stage of the cancer, your age, personal preferences, and your overall health. Talk with your health care provider about treatment options that are recommended for you. Consider joining a support group for men who have prostate cancer. Meeting with a support group mayhelp you learn to cope with the stress of having cancer. This information is not intended to replace advice given to you by your health care provider. Make sure you discuss any questions you have with your health care provider. Document Released: 07/03/2006 Document Revised: 06/15/2018 Document Reviewed: 03/13/2017 [employer] Patient Education 2020 [employer]. Follow Up Care 11/08/2021 14:14:20 With:KAEL JAMES, Anthony Lee, URL Address: [address] [place] [phone]- When: Unknown [facility] 10-27-2022 Nurse Note* Sheela Toney - 05/12/2022 10:43 AM EDT AUA=2 documented in this encounterTr[facility]10-27-2022 History of Present illness Narrative* G Franky Khan MD - 05/12/2022 10:41 AM EDT Radiation Oncology - Follow Up Note PATIENT NAME: Pablo Felix PATIENT DIAGNOSIS: Prostate adenocarcinoma, initial clinical stage II, initial PSA 1.07, biopsy Ponce score 9(4,5), s/p prostatectomy for 11/05/14 pathologic stage IIIC [id number], Lucrecia 9 (5, 4) now with rising PSA RADIATION SUMMARY:DATES OF TREATMENT: 02-05-2018 to 03-30-2018 AREA TREATED: Pelvis Prostate Bed DELIVERED DOSE: Area: Pelvis Prostate Bed with CBCT daily 4500cGy in 25 fractions, 3 Arcs/VMAT/IMRT/ 6MV Area: Prostate Bed Boost with CBCT daily 2520cGy in 14 fractions, 2 Arcs/VMAT/IMRT/6 MV TOTAL: 7020 cGy in 39 fractions ELAPSED TIME: 53 days. INTERVAL HISTORY: Patient denies new issues in terms of pelvic pain or bladder or bowel changes. PSA did continue to rise on ADT and he has been placed on Xgeva. PSA HISTORY: PSA (ng/mL) Date Value 02/17/2022 0.03 12/30/2021 0.14 05/08/2018 0.03 PSA. (no units) Date Value 09/07/2020 0.84 09/26/2019 0.09 04/25/2019 <0.13 07/25/2018 <0.13 ALLERGIES Allergen Reactions Penicillins Unknown Simvastatin Unknown metoprolol succinate ER (TOPROL XL) 25 mg 24 hr tablet Take by mouth. CONTOUR TEST STRIPS test strip 1 Each once daily. To test blood sugars MICROLET LANCET lancets 1 Each once daily. To test blood sugar Tyuccaeyajfio-Nctohvlq-Avgapf (MULTIVITAMIN 50 PLUS) tab Take 1 tablet by mouth once daily. calcium carbonate/vitamin D2 (CALCIUM + VITAMIN D ORAL) Take 1 tablet by mouth twice daily. enzalutamide (XTANDI) 80 mg tablet Take 2 tablets (160 mg) by mouth once daily. GLIMEPIRIDE ORAL Take 0.5 mg by mouth once daily. metFORMIN (GLUCOPHAGE) 1,000 mg tablet Take 1,000 mg by mouth once daily. atorvastatin (LIPITOR) 40 mg tablet Take 40 mg by mouth once daily. metoprolol tartrate, short acting, (LOPRESSOR) 25 mg tablet Take 25 mg by mouth twice daily. lisinopril-hydrochlorothiazide (PRINZIDE,ZESTORETIC) 20-12.5 mg per tablet Take 1 tablet by mouth once daily. aspirin, enteric coated (ASPIRIN, ENTERIC COATED) 81 mg EC tablet Take 81 mg by mouth once daily. REVIEW OF SYSTEMS: D/N = 4/2 Hematuria: none Dysuria: none Incontinence: occ mostly urge related Urgency: none Catheter use: No Medications to aid urination: y - Total AUA Score: 2 Bowel movement frequency: 1/day Bowel movement quality: normal Blood per rectum: none Androgen deprivation: y PHYSICAL EXAM: There were no vitals taken for this visit. KPS: 100 General appearance: Alert and oriented. No acute distress. Rectal exam def Extremities: No deformities, edema, skin discoloration, clubbing or cyanosis. Lymph Nodes: No cervical lymphadenopathy, No supraclavicular lymphadenopathy, No axillary lymphadenopathy. Skin: Skin color, texture, turgor normal, no suspicious rashes or lesions. ASSESSMENT/PLAN: Prostate adenocarcinoma, initial clinical stage II, initial PSA 1.07, biopsy Ponce score 9(4,5), s/p prostatectomy for 11/05/14 pathologic stage IIIC [id number], Ponce 9 (5, 4) withrising PSA, subsequently status post pelvic and prostate bed radiation completed March 2018. Patient has had continued PSA progression. He is now on second line antiandrogen's. He continues Lupron. No current role for radiation. Plan to see patient back on an as-needed basis as he has continued follow-up with urology and medical oncology. Signed by: Zach Khan MD cc: Jamar Fall MD ([facility]) Portions of the above note extracted and edited from previous visit as well as active information included in the EMR. documented in this encounterTr[facility]10-17-2022 Miscellaneous Notes* Telephone Encounter - Sheela Toney - 05/02/2022 10:48 AM EDT Patient coming in on 05/12/22 for follow up with labs. Please add lab orders. Thanks, Sheela Toney MA documented in this encounterTr[facility]08-04-2022 History of Present illness Narrative* Marco A Esqueda MD - 02/17/2022 7:51 AM EDT PATIENT NAME: Pablo Felix DATE: 02/17/2022 PRIMARY CARE PHYSICIAN: Jamar Fall, OTHER PHYSICIANS: Dr. Anthony Scruggs, Dr. Khan, [facility] Cardiology Portions of this encounter note have been copied from my note from 12/30/2021 and has been updated where appropriate, and reflect my current medical decision making from today. CC: This is a 77 year old male with metastatic prostate cancer, seen for scheduled follow-up. INTERIM HISTORY: Since the patient's last visit here he has remained on Xtandi 160 mg daily, and istolerating it well. Currently the patient feels well with no particular complaints. He denies any unusual bone pain or other systemic symptoms. No difficulties with urination. MEDICATIONS: Current Outpatient Medications Medication Sig CONTOUR TEST STRIPS test strip 1 Each once daily. To test blood sugars MICROLET LANCET lancets 1 Each once daily. To test blood sugar Nharceijgdjgn-Nfpvkkzj-Lgyrzp (MULTIVITAMIN 50 PLUS) tab Take 1 tablet by mouth once daily. calcium carbonate/vitamin D2 (CALCIUM + VITAMIN D ORAL) Take 1 tablet by mouth twice daily. enzalutamide (XTANDI) 80 mg tablet Take 2 tablets (160 mg) by mouth once daily. GLIMEPIRIDE ORAL Take 0.5 mg by mouth once daily. metFORMIN (GLUCOPHAGE) 1,000 mg tablet Take 1,000 mg by mouth once daily. atorvastatin (LIPITOR) 40 mg tablet Take 40 mg by mouth once daily. metoprolol tartrate, short acting, (LOPRESSOR) 25 mg tablet Take 25 mg by mouth twice daily. lisinopril-hydrochlorothiazide (PRINZIDE,ZESTORETIC) 20-12.5 mg per tablet Take 1 tablet by mouth once daily. aspirin, enteric coated (ASPIRIN, ENTERIC COATED) 81 mg EC tablet Take 81 mg by mouth once daily. No current facility-administered medications for this visit. ALLERGIES: ALLERGIES Allergen Reactions Penicillins Unknown PAST MEDICAL HISTORY: PAST MEDICAL HISTORY Diagnosis Date CAD (coronary artery disease) Hypercholesterolemia on medication Hypertension on medication Nocturia Prostate CA (HCC) Rising PSA level 10/2021 PAST SURGICAL HISTORY: PAST SURGICAL HISTORY Procedure Laterality Date APPENDECTOMY CORONARY ARTERY BYPASS GRAFT FAMILY HISTORY: FAMILY HISTORY Problem Relation Age of Onset Cancer Mother Cancer SOCIAL HISTORY: Social History Tobacco Use Smoking status: Never Smoker Smokeless tobacco: Never Used Substance Use Topics Alcohol use: Yes Comment: 1 day/wk Drug use: No COMPLETE REVIEW OF SYSTEMS: CONSTITUTION: Negative for pain, fatigue, weight loss, or appetite loss. EENT: Negative for mouth soreness, antibiotics use, epistaxis, visual problems, neck or facial swelling, fever/chills, bleeding gums, or hearing loss. CV: Negative for edema, calf swelling, palpitations, or chest pain. RESPIRATORY: Negative for cough, SOB, hemoptysis, or wheezing. GI: Negative for nausea/vomiting, heartburn, vomiting blood, dysphasia, diarrhea, blood in stool, constipation, early satiety, PICA, vegetarian, poor nutrition, abdominal fullness, or abdominal pain. NEUROLOGICAL: Negative for numbness/tingling, dizziness, gait disturbance, headache, speech disturbance, tremor, hemiparesis/sensory loss, or change in mental status. MUSCULOSKELETAL: Negative for joint pain, joint swelling, or proximal muscle weakness. SKIN: Negative for hair loss, bruising, nail changes, rash, itching, pallor, or jaundice. ENDO/URO: Negative for hot flashes, cold or heat intolerance, urinary frequency, urinary hesitancy,menorrhagia, or hematuria. PSYCH: Negative for anxiety, depression, or other. PHYSICAL EXAM: BP 133/58 Pulse 63 Temp 36.6 C (97.9 F) (Temporal) Resp 16 Ht 167.6 cm (5' 5.98 ) Wt 97.1 kg (214 lb) SpO2 99% BMI 34.56 kg/m GENERAL EXAM: Well developed/well nourished; in no acute distress. SKIN: Negative for lesions, rashes, or ulcers on the upper and lower extremities and face. Negativefor palpations/nodules, purpura, and ecchymosis. EENT: Negative for conjunctiva, mucosal pallor, JVD, LAP, thyromegaly, and glossitis. Supple & PERRL. EXTREMITIES: Negative for cyanosis, clubbing, and crepitus. LUNGS: Negative to auscultation, respiratory effort, and percussion. CARDIOVASCULAR: Regular rate. Negative for murmurs/S3S4/abnormal sounds, edema, and carotid bruits. ABDOMEN: Negative for masses, hernia, and spleen/liver abnormalities. RECTAL: Not done PSYCHIATRIC: Negative for mood/affect changes, recent & remote memory changes, and judgement and insight. NEUROLOGICAL: Alert, oriented x person, place, time. Cranial nerves 2-12 intact. Sensory for pain, light touch, vibration intact on all 4 extremities. Reflexes symmetric for biceps/brachioradial/patella/achilles. MUSCULOSKELETAL: Negative examination of joints, bones, muscles/tendons of all four extremities forinspection, percussion, and palpation. Negative for misallignment, asymmetry, crepitation, tenderness, mass, effusions. Range of motion normal. Negative for joint instability, laxity, dislocation. Gait steady. Negative for swelling, erythema, tenderness, soft tissue swelling, and atrophy. 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 Left base margin positive for neoplasm. Seminal vesicles with no diagnostic abnormality. 2 resected lymph nodes negative for neoplasm. LABS: Hemoglobin (g/dL) Date Value 02/17/2022 12.1 05/08/2018 12.8 Hematocrit (%) Date Value 02/17/2022 36.3 05/08/2018 36.8 WBC (k/uL) Date Value 02/17/2022 7.42 05/08/2018 5.63 Platelet Count (k/uL) Date Value 02/17/2022 186 05/08/2018 168 01/21/2019 PSA <0.13 09/26/2019 PSA 0.09 06/17/2020 PSA 0.43 09/07/2020 PSA 0.84 05/06/2021 PSA 1.09 07/19/2021 PSA 1.58 10/25/2021 PSA 2.64 12/30/2021 PSA 0.14 RADIOLOGY/OTHER STUDIES: 11/05/2021 CT chest/abdomen/pelvis ([facility]) Several sclerotic lesions consistent with metastatic disease. No evidence of visceral organ involvement or lymphadenopathy. 11/05/2021 Bone scan ([facility]) Multifocal osseous metastasis including the left femur at the lesser trochanter, right pubis symphysis, multiple ribs bilaterally. 01/22/2018 Nuclear bone scan ([facility]) New focal increased activity left frontal bone, left T8 vertebral body. 01/22/2018 MRI pelvis ([facility]) 4.5 cm area of T2 signal in the prostate bed. 07/24/2014 CT abdomen/pelvis ([facility] Diffuse prostatic enlargement with indentation of the bladder base. Incidental 2.5 x 1 cm exophytic hypodense lesion adjacent to the pancreatic body. ASSESSMENT/PLAN: 1. Metastatic prostate cancer (HCC) - ICD9: 185, ICD10: C61 (primary diagnosis) The patient was diagnosed with early-stage high-grade prostate cancer in June 2014 ([facility] [id number]). He underwent a radical prostatectomy on 11/05/2014. Pathology consistent with stage IIIC (pT2b, N0, M0), Lucrecia 5+4 equal 9. Postop the patient's PSA initially became undetectable. By December 2017 the patient's PSA increased to 0.34. Staging studies January 2018 revealed no evidence of metastases. He subsequently was started on Lupron 02/12/2018, and has received Lupron intermittently since. The patient received external beam radiation therapy to the prostate bed 02/05/2018 - 03/30/2018. The patient's PSA once again became undetectable. However, by September 2019 the PSA increased to 0.09. Lupron every 6 months was continued. Despite continuation of Lupron the patient's PSA continued to increase. By July 2021 the PSA increased to 1.58. He was seen by his urologist (Dr. Scruggs) and recommendations were to add abiraterone/prednisone to the Lupron. Unfortunately, the patient's insurance would not cover the cost of the medications. PSA obtained 10/25/2021 was further elevated at 2.64. Testosterone 10/28/2021 was adequately suppressed at <12. Staging scans were obtained at [facility] on 11/05/2021. Bone scan revealed multiple areas of bone metastases. CT scans showed no evidence of visceral organ involvement or suspicious lymphadenopathy. On 11/10/2021 the patient started Xtandi 160 mg daily. Lupron every 6 months continued. Antiresorptive therapy with Xgeva started 11/18/2021, with plans give every 3 months. Currently the patient is clinically stable and his PSAs improved significantly. The patient will continue as is with Xtandi and Lupron. He will receive his next Lupron per Dr. Scruggs May 2022. He will receive Xgeva today as scheduled. I will see him back in 3 months for follow-up and labs, at which time he will receive his next Xgeva injection. 2. Coronary artery disease - ICD9: 414.01, ICD10: I25.10 Status post CABG 08/17/2014 ([facility]). Stable on current medications. Continue per PCP/cardiology. 3. Essential hypertension - ICD9: 401.9, ICD10: I10 Stable on current medications. Continue per PCP/cardiology. 4. Type 2 diabetes mellitus (HCC) - ICD9: 250.00, ICD10: E11.9 Stable on current medications. Continue per PCP. 5. Pancreatic mass 2.5 cm exophytic density adjacent to the pancreatic body identified on baseline CT scans July 2014. CT directed pancreatic FNA obtained 08/22/2014 negative. Will monitor with repeat CT scan. Marco A Esqueda MD CC: Dr. Anthony Scruggs documented in this encounterTr[facility]23-[facility]22 Miscellaneous Notes* Telephone Encounter - Clementine Aguilar RN - 12/06/2021 10:51 AM EDT Pt is due for a refill of his Xtandi. Questions if he needs to contact his mail order pharmacy or if the script will ship automatically? Per Josh, pt will need to notify his pharmacy that he is due for a refill. Pt notified and confirms that he has the phone number to [facility]. No additional questionsnoted. Clementine Aguilar RN documented in this encounterTrinity [facility]04-28-2022 History of Present illness Narrative* Marco A Esqueda MD - 11/11/2021 7:42 AM EDT PATIENT NAME: Pablo Felix DATE: 11/11/2021 PRIMARY CARE PHYSICIAN: Jamar Fall DO OTHER PHYSICIANS: Dr. Anthony Scruggs, Dr. Khan, [facility] Cardiology Portions of this encounter note have been copied from my note from 10/28/2021 and has been updated where appropriate, and reflect my current medical decision making from today. CC: This is a 76 year old male with recently diagnosed metastatic prostate cancer, seen for scheduled follow-up. INTERIM HISTORY: Since the patient's initial visit here he underwent staging scans at [facility] on 11/05/2021. Bone scan revealed multiple areas of metastases. CT scans showed no evidence of visceral organ involvement or suspicious lymphadenopathy. Labs at the patient's initial visit here revealed adequate suppression of testosterone, therefore it was recommended he continue with Lupron and he received an injection per Dr. Scruggs on 11/08/2021. After documentation of metastatic disease the patient started Xtandi 160 mg daily on 11/10/2021, and he appears to be tolerating it well. Currently the patient feels well. He denies any unusual bone pain or other systemic complaints. No difficulties with urination. MEDICATIONS: Current Outpatient Medications Medication Sig CONTOUR TEST STRIPS test strip 1 Each once daily. To test blood sugars MICROLET LANCET lancets 1 Each once daily. To test blood sugar Qlfelnjtstpyw-Rukhddwi-Pdwopi (MULTIVITAMIN 50 PLUS) tab Take 1 tablet by mouth once daily. calcium carbonate/vitamin D2 (CALCIUM + VITAMIN D ORAL) Take 1 tablet by mouth twice daily. enzalutamide (XTANDI) 80 mg tablet Take 2 tablets (160 mg) by mouth once daily. GLIMEPIRIDE ORAL Take 0.5 mg by mouth once daily. metFORMIN (GLUCOPHAGE) 1,000 mg tablet Take 1,000 mg by mouth once daily. atorvastatin (LIPITOR) 40 mg tablet Take 40 mg by mouth once daily. metoprolol tartrate, short acting, (LOPRESSOR) 25 mg tablet Take 25 mg by mouth twice daily. lisinopril-hydrochlorothiazide (PRINZIDE,ZESTORETIC) 20-12.5 mg per tablet Take 1 tablet by mouth once daily. aspirin, enteric coated (ASPIRIN, ENTERIC COATED) 81 mg EC tablet Take 81 mg by mouth once daily. No current facility-administered medications for this visit. ALLERGIES: ALLERGIES Allergen Reactions Penicillins Unknown PAST MEDICAL HISTORY: PAST MEDICAL HISTORY Diagnosis Date CAD (coronary artery disease) Hypercholesterolemia on medication Hypertension on medication Nocturia Prostate CA (HCC) Rising PSA level 10/2021 PAST SURGICAL HISTORY: PAST SURGICAL HISTORY Procedure Laterality Date APPENDECTOMY CORONARY ARTERY BYPASS GRAFT FAMILY HISTORY: FAMILY HISTORY Problem Relation Age of Onset Cancer Mother Cancer SOCIAL HISTORY: Social History Tobacco Use Smoking status: Never Smoker Smokeless tobacco: Never Used Substance Use Topics Alcohol use: Yes Comment: 1 day/wk Drug use: No COMPLETE REVIEW OF SYSTEMS: CONSTITUTION: Negative for pain, fatigue, weight loss, or appetite loss. EENT: Negative for mouth soreness, antibiotics use, epistaxis, visual problems, neck or facial swelling, fever/chills, bleeding gums, or hearing loss. CV: Negative for edema, calf swelling, palpitations, or chest pain. RESPIRATORY: Negative for cough, SOB, hemoptysis, or wheezing. GI: Negative for nausea/vomiting, heartburn, vomiting blood, dysphasia, diarrhea, blood in stool, constipation, early satiety, PICA, vegetarian, poor nutrition, abdominal fullness, or abdominal pain. NEUROLOGICAL: Negative for numbness/tingling, dizziness, gait disturbance, headache, speech disturbance, tremor, hemiparesis/sensory loss, or change in mental status. MUSCULOSKELETAL: Negative for joint pain, joint swelling, or proximal muscle weakness. SKIN: Negative for hair loss, bruising, nail changes, rash, itching, pallor, or jaundice. ENDO/URO: Negative for hot flashes, cold or heat intolerance, urinary frequency, urinary hesitancy,menorrhagia, or hematuria. PSYCH: Negative for anxiety, depression, or other. PHYSICAL EXAM: BP 130/54 Pulse 68 Temp 36.3 C (97.4 F) (Temporal) Resp 16 Ht 167.6 cm (5' 5.98 ) Wt 99 kg (218 lb 3.2 oz) SpO2 98% BMI 35.24 kg/m GENERAL EXAM: Well developed/well nourished; in no acute distress. SKIN: Negative for lesions, rashes, or ulcers on the upper and lower extremities and face. Negativefor palpations/nodules, purpura, and ecchymosis. EENT: Negative for conjunctiva, mucosal pallor, JVD, LAP, thyromegaly, and glossitis. Supple & PERRL. EXTREMITIES: Negative for cyanosis, clubbing, and crepitus. LUNGS: Negative to auscultation, respiratory effort, and percussion. CARDIOVASCULAR: Regular rate. Negative for murmurs/S3S4/abnormal sounds, edema, and carotid bruits. ABDOMEN: Negative for masses, hernia, and spleen/liver abnormalities. RECTAL: Not done PSYCHIATRIC: Negative for mood/affect changes, recent & remote memory changes, and judgement and insight. NEUROLOGICAL: Alert, oriented x person, place, time. Cranial nerves 2-12 intact. Sensory for pain, light touch, vibration intact on all 4 extremities. Reflexes symmetric for biceps/brachioradial/patella/achilles. MUSCULOSKELETAL: Negative examination of joints, bones, muscles/tendons of all four extremities forinspection, percussion, and palpation. Negative for misallignment, asymmetry, crepitation, tenderness, mass, effusions. Range of motion normal. Negative for joint instability, laxity, dislocation. Gait steady. Negative for swelling, erythema, tenderness, soft tissue swelling, and atrophy. 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 Left base margin positive for neoplasm. Seminal vesicles with no diagnostic abnormality. 2 resected lymph nodes negative for neoplasm. LABS: Hemoglobin (g/dL) Date Value 11/11/2021 11.6 05/08/2018 12.8 Hematocrit (%) Date Value 11/11/2021 34.8 05/08/2018 36.8 WBC (k/uL) Date Value 11/11/2021 10.28 05/08/2018 5.63 Platelet Count (k/uL) Date Value 11/11/2021 189 05/08/2018 168 01/21/2019 PSA <0.13 09/26/2019 PSA 0.09 06/17/2020 PSA 0.43 09/07/2020 PSA 0.84 05/06/2021 PSA 1.09 07/19/2021 PSA 1.58 10/25/2021 PSA 2.64 RADIOLOGY/OTHER STUDIES: 11/05/2021 CT chest/abdomen/pelvis ([facility]) Several sclerotic lesions consistent with metastatic disease. No evidence of visceral organ involvement or lymphadenopathy. 11/05/2021 Bone scan ([facility]) Multifocal osseous metastasis including the left femur at the lesser trochanter, right pubis symphysis, multiple ribs bilaterally. 01/22/2018 Nuclear bone scan ([facility]) New focal increased activity left frontal bone, left T8 vertebral body. 01/22/2018 MRI pelvis ([facility]) 4.5 cm area of T2 signal in the prostate bed. 07/24/2014 CT abdomen/pelvis ([facility] Diffuse prostatic enlargement with indentation of the bladder base. Incidental 2.5 x 1 cm exophytic hypodense lesion adjacent to the pancreatic body. ASSESSMENT/PLAN: 1. Metastatic prostate cancer (HCC) - ICD9: 185, ICD10: C61 (primary diagnosis) The patient was diagnosed with early-stage high-grade prostate cancer in June 2014 ([facility] [id number]/02/2014). He underwent a radical prostatectomy on 11/05/2014. Pathology consistent with stage IIIC (pT2b, N0, M0), Ponce 5+4 equal 9. Postop the patient's PSA initially became undetectable. By December 2017 the patient's PSA increased to 0.34. Staging studies in January 2018 revealed no evidence of metastases. He subsequently was started on Lupron 02/12/2018, and has received Lupron intermittently since. The patient received external beam radiation therapy to the prostate bed 02/05/2018 - 03/30/2018.The patient's PSA once again became undetectable. However, by September 2019 the PSA increased to 0.09.Lupron every 6 months was continued, last given 05/14/2021. Despite continuation of Lupron the patient's PSA has continued to increase. By July 2021 the PSA increased to 1.58. He was seen by his urologist (Dr. Scruggs) and recommendations were to add abiraterone/prednisone to the Lupron. Unfortunately, the patient's insurance would not cover the cost of the medications. PSA obtained 10/25/2021 was further elevated at 2.64. Testosterone 10/28/2021 was adequately suppressed at <12. Staging scans were obtained at [facility] on 11/05/2021. Bone scan revealed multiple areas of bone metastases. CT scans showed no evidence of visceral organ involvement or suspicious lymphadenopathy. The patient has several areas of bone metastases, but is minimally symptomatic. For now he will continue as is with Lupron every 6 months last given 11/08/2021. Xtandi 160 mg daily started 11/10/2021. Because of his bone metastasis I recommended antiresorptive therapy with Xgeva. He will receive his first injection in the next week or 2, and then continue every 3 months. I will see him back in 7 weeks for follow-up and labs. He will follow-up with his other physicians as scheduled. 2. Coronary artery disease - ICD9: 414.01, ICD10: I25.10 Status post CABG 08/17/2014 ([facility]). Stable on current medications. Continue per PCP/cardiology. 3. Essential hypertension - ICD9: 401.9, ICD10: I10 Stable on current medications. Continue per PCP/cardiology. 4. Type 2 diabetes mellitus (HCC) - ICD9: 250.00, ICD10: E11.9 Stable on current medications. Continue per PCP. 5. Pancreatic mass 2.5 cm exophytic density adjacent to the pancreatic body identified on baseline CT scans July 2014. CT directed pancreatic FNA obtained 08/22/2014 negative. Will monitor with repeat CT scan. Marco A Esqueda MD CC: Dr. Anthony Scruggs documented in this encounterTr[facility]04-27-2022 Miscellaneous Notes* Telephone Encounter - Clementine Aguilar RN - 11/10/2021 3:03 PM EDT Pt reports his Enzalutamide was delivered. Will start this evening. Clementine Aguilar RN documented in this encounterTr[facility]04-26-2022 Miscellaneous Notes* Telephone Encounter - Clementine Aguilar RN - 11/09/2021 2:31 PM EDT Per pt, his Enzalutamide is scheduled to arrive tomorrow morning. Patient started/will start taking Enzalutamide on 11/10/21. Clementine Aguilar RN documented in this encounterTrinity [facility]04-25-2022 Hospital Discharge instructions Patient Education 11/08/2021 14:10:09 Prostate Cancer Prostate Cancer The prostate is a walnut-sized gland that is involved in the production of semen. It is located below a man's bladder, in front of the rectum. Prostate cancer is the abnormal growth of cells in the prostate gland. What are the causes? The exact cause of this condition is not known. What increases the risk? This condition is more likely to develop in men who: Are older than age 65. Are -[place]. Are obese. Have a family history of prostate cancer. Have a family history of breast cancer. What are the signs or symptoms? Symptoms of this condition include: A need to urinate often. Weak or interrupted flow of urine. Trouble starting or stopping urination. Inability to urinate. Pain or burning during urination. Painful ejaculation. Blood in urine or semen. Persistent pain or discomfort in the lower back, lower abdomen, hips, or upper thighs. Trouble getting an erection. Trouble emptying the bladder all the way. How is this diagnosed? This condition can be diagnosed with: A digital rectal exam. For this exam, a health care provider inserts a gloved finger into the rectum to feel the prostate gland. A blood test called a prostate-specific antigen (PSA) test. An imaging test called transrectal ultrasonography. A procedure in which a sample of tissue is taken from the prostate and examined under a microscope (prostate biopsy). Once the condition is diagnosed, tests will be done to determine how far the cancer has spread. This is called staging the cancer. Staging may involve imaging tests, such as: A bone scan. A CT scan. A PET scan. An MRI. The stages of prostate cancer are as follows: Stage I. At this stage, the cancer is found in the prostate only. The cancer is not visible on imaging tests and it is usually found by accident, such as during a prostate surgery. Stage II. At this stage, the cancer is more advanced than it is in stage I, but the cancer has not spread outside the prostate. Stage III. At this stage, the cancer has spread beyond the outer layer of the prostate to nearby tissues. The cancer may be found in the seminal vesicles, which are near the bladder and the prostate. Stage IV. At this stage, the cancer has spread other parts of the body, such as the lymph nodes, bones, bladder, rectum, liver, or lungs. How is this treated? Treatment for this condition depends on several factors, including the stage of the cancer, your age, personal preferences, and your overall health. Talk with your health care provider about treatment options that are recommended for you. Common treatments include: Observation for early stage prostate cancer (active surveillance). This involves having exams, blood tests, and in some cases, more biopsies. For some men, this is the only treatment needed. Surgery. Types of surgeries include: ?Open surgery. In this surgery, a larger incision is made to remove the prostate. ?A laparoscopic prostatectomy. This is a surgery to remove the prostate and lymph nodes through several, small incisions. It is often referred to as a minimally invasive surgery. ?A robotic prostatectomy. This is a surgery to remove the prostate and lymph nodes with the help ofa robotic arm that is controlled by a computer. ?Orchiectomy. This is a surgery to remove the testicles. ?Cryosurgery. This is a surgery to freeze and destroy cancer cells. Radiation treatment. Types of radiation treatment include: ?External beam radiation. This type aims beams of radiation from outside the body at the prostate to destroy cancerous cells. ?Brachytherapy. This type uses radioactive needles, seeds, wires, or tubes that are implanted into the prostate gland. Like external beam radiation, brachytherapy destroys cancerous cells. An advantage is that this type of radiation limits the damage to surrounding tissue and has fewer side effects. High-intensity, focused ultrasonography. This treatment destroys cancer cells by delivering high-energy ultrasound waves to the cancerous cells. Chemotherapy medicines. This treatment kills cancer cells or stops them from multiplying. Hormone treatment. This treatment involves taking medicines that act on one of the male hormones (testosterone): ?By stopping your body from producing testosterone. ?By blocking testosterone from reaching cancer cells. Follow these instructions at home: Take [id number] and prescription medicines only as told by your health care provider. Maintain a healthy diet. Get plenty of sleep. Consider joining a support group for men who have prostate cancer. Meeting with a support group mayhelp you learn to cope with the stress of having cancer. Keep all follow-up visits as told by your health care provider. This is important. If you have to go to the hospital, notify your cancer specialist (oncologist). Treatment for prostate cancer may affect sexual function. Continue to have intimate moments with your partner. This may include touching, holding, hugging, and caressing. Contact a health care provider if: You have trouble urinating. You have blood in your urine. You have pain in your hips, back, or chest. Get help right away if: You have weakness or numbness in your legs. You cannot control urination or your bowel movements (incontinence). You have trouble breathing. You have sudden chest pain. You have chills or a fever. Summary The prostate is a walnut-sized gland that is involved in the production of semen. It is located below a man's bladder, in front of the rectum. Prostate cancer is the abnormal growth of cells in the prostate gland. Treatment for this condition depends on several factors, including the stage of the cancer, your age, personal preferences, and your overall health. Talk with your health care provider about treatment options that are recommended for you. Consider joining a support group for men who have prostate cancer. Meeting with a support group mayhelp you learn to cope with the stress of having cancer. This information is not intended to replace advice given to you by your health care provider. Make sure you discuss any questions you have with your health care provider. Document Released: 07/03/2006 Document Revised: 06/15/2018 Document Reviewed: 03/13/2017 [employer] Patient Education 2020 [employer] Follow Up Care 08/23/2021 13:26:07 With:KAEL JAMES, Anthony Lee, URL Address: [facility] [address] , [place] [address]- [phone] When:05/10/2022 [facility] 04-21-2022 Miscellaneous Notes* Telephone Encounter - Clementine Aguilar RN - 11/04/2021 2:53 PM EDT Pt would like to get the 4th Covid vaccine when it's due. Dr Esqueda notified and gives the ok to proceed when due. Pt notified and verbalizes understanding. Clementine Aguilar RN documented in this encounterTr[facility]04-21-2022 History of Present illness Narrative* Clementine Aguilar RN - 11/04/2021 2:49 PM EDT ORAL ANTI-CANCER AGENTS EDUCATION patient and spouse here today for oral medication education for Xtandi (enzalutamide) for Prostate Cancer READINESS TO LEARN Cognitive Ability: Alert and oriented Motivation to Learn: Interested Family Support: High - Very involved in pt care Instruction Provided to: Patient and Spouse Patient learns best by: Multiple Methods Factors affecting learning: None Physical limitation affecting learning: None CARTER ASSESSMENT: 1.) Verified that patient knows that the oral agents are for cancer and are taken by mouth. Yes 2.) Medication reconciliation completed during visit. Yes 3.) Patient is able to swallow pills. Yes 4.) Patient is able to read the drug label/information. Yes 5.) Patient is able to open the medication bottles and packages. Yes 6.) Has patient taken other pills for cancer? No 7.) Is patient experiencing any symptoms that would affect their ability to keep down pills, for example nausea or vomiting? No 8.) Verified that patient understands prescription delivery, benefit investigation and refill process. Yes PATIENT EDUCATION: 1.) Verified that patient attended individualized instruction on chemotherapy taught by a pharmacist. and nurse. Yes 2.) Verified that patient received Chemotherapy Safety in the Home handout, ChemoCare Medication Information handout: Enzalutamide, Specialty Pharmacy Information : [facility] Pharmacy and Specialty Pharmacy phone numbers: Yes DRUG-SPECIFIC EDUCATION: 1.) Verified that patient knows the drug name. Yes 2.) Verified patient understands the dose and schedule of oral chemo agent:with water, with or without food. Yes 3.) Verified patient knows what to do if a medication dose is missed. Yes 4.) Verified patient understands where to store the drug. Yes 5.) Verified patient understands potential side effects and how to manage them. Yes Diarrhea, Headache, Neutropenia, Fatigue, Peripheral Edema, Myalgia, Arthalgia and Hot Flashes 6.)Verified that patient understands handling precautions of oral chemo agent. Yes 7.) Verified that patient understands when and whom to call with questions. Yes 8.) Verified that patient understands where and how to return drug. Yes EVALUATE: Patient was able to demonstrate an understanding of all the above education using the teach-back method. Yes Patient instructed to call us with any questions, concerns, and/or unresolved symptoms. Will continue to follow up with patient and provide reinforcement of teaching topics as needed. Total time spent with patient: 20 minutes Total time spent on encounter: 5 minutes Clementine Aguilar RN * Aidaдмитрий Luo, [facility] - 11/04/2021 2:49 PM EDT Images from the original note were not included. [facility] Department of Pharmacy Oncology Pharmacy Medication Education Patient Name: Pablo Felix Primary Oncologist: Dheeraj Diagnosis: Prostate Ca Pablo Felix is a 76 year old patient and spouse here today for medication education for PO Xtandi(enzalutamide). Drug Interactions: Clinically significant interactions with chemotherapy, immunosuppression, or other standard of caretreatment plan medications anticipated: No. There are no pertinent drug interactions identified. Patient was counseled accordingly. Allergies: Patient confirmed allergies documented in Epic are correct: Yes Was medication education provided?: Yes Medication Education: Administration and schedule: 2 tablets PO QD Potential side effects discussed: appetite changes, fluid retention, myalgia, peripheral edema, hypertension PO chemo: Verified patient understands where to store the drug. Yes Verified that patient understands prescription delivery, benefit investigation and refill process. Yes Was medication reconciliation performed?: Yes Changes made to medication list? Yes The following medications were updated within the home medication list: Medications ADDED to home medication list: Ca + vit D MVI Current Outpatient Medications Medication Sig CONTOUR TEST STRIPS test strip 1 Each once daily. To test blood sugars MICROLET LANCET lancets 1 Each once daily. To test blood sugar Regzbhseuppjw-Edoffuge-Bjlknk (MULTIVITAMIN 50 PLUS) tab Take 1 tablet by mouth once daily. calcium carbonate/vitamin D2 (CALCIUM + VITAMIN D ORAL) Take 1 tablet by mouth twice daily. enzalutamide (XTANDI) 80 mg tablet Take 2 tablets (160 mg) by mouth once daily. GLIMEPIRIDE ORAL Take 0.5 mg by mouth once daily. metFORMIN (GLUCOPHAGE) 1,000 mg tablet Take 1,000 mg by mouth once daily. atorvastatin (LIPITOR) 40 mg tablet Take 40 mg by mouth once daily. metoprolol tartrate, short acting, (LOPRESSOR) 25 mg tablet Take 25 mg by mouth twice daily. lisinopril-hydrochlorothiazide (PRINZIDE,ZESTORETIC) 20-12.5 mg per tablet Take 1 tablet by mouth once daily. aspirin, enteric coated (ASPIRIN, ENTERIC COATED) 81 mg EC tablet Take 81 mg by mouth once daily. No current facility-administered medications for this visit. METHOD OF INSTRUCTION: Individual instruction PATIENT/FAMILY RESPONSE: Verbalizes understanding of: MEDICAL REGIMEN-Importance of following prescribed medical regimen MEDICATION DOSE MISSED-Correct action to take if medication dose is missed MEDICATION PRESCRIBED-Accurate knowledge of prescribed medication prior to discharge MEDICATION ROUTE-Correct route for administration of the prescribed medication MEDICATION SIDE EFFECTS-Side effects associated with the medication that warrant a call to the physician FOLLOW UP PLAN: Complete - No need for follow-up SUPPLEMENTAL MATERIAL: Written material was provided at this visit with the following information - Hormaonal therapy education was provided by a pharmacist NO - Provided important phone numbers and contacts during and after hours. YES - Provided information on symptoms that require immediate assistance. YES - Provided Hormonal Therapy when to call handouts YES - Preventing infection. YES - Treatment schedule and confirmation of appointment times. YES - Available support groups. NA - The importance of contraception during the course of chemotherapy NA - Followed up with [facility] for delivery of Free Xtandi Readiness to Learn COGNITIVE ABILITY: Alert and oriented MOTIVATION TO LEARN: Interested FAMILY SUPPORT: High - Very involved in pt care INSTRUCTION PROVIDED TO: Patient and Spouse INSTRUCTION PROVIDED BY: Nurse Coordinator and Pharmacist PATIENT LEARNS BEST BY: Unable to Assess FACTORS AFFECTING LEARNING: Unable to assess PHYSICAL LIMITATIONS AFFECTING LEARNING: None Thank you for allowing us to participate in the care of this patient. I spent 15 time (15 minute increments) with the patient Rubin Luo RPh documented in this encounterTr[facility]21-2022 Miscellaneous Notes* Telephone Encounter - Aida Luo RPh - 11/04/2021 10:54 AM EDT Confirmed with [employer] approval date 11/01/21 and that the specialty pharmacy, [facility], will reach out to Mr Felix 3-5 business days from approval date. If he does not hear from them by 11/10/21 we should call [facility] @ option 2. I informed Mr Felix of this, he has an appt 11/12/21 and said if he has not heard from them by then he will get their phone number from us. Rubin Luo RPh documented in this encounterTrinity [facility]04-19-2022 Miscellaneous Notes* Telephone Encounter - Jennifer Amaro - 11/02/2021 12:23 PM EDT Called pt, scheduled for education (11/04) @ 900am. * Telephone Encounter - Clementine Aguilar RN - 11/02/2021 11:57 AM EDT Clerical: Please schedule pt for education. Thank you! Clementine Aguilar RN * Telephone Encounter - Aida Luo RPh - 11/02/2021 11:41 AM EDT Approved for free Xtandi until 07/16/22. Spoke to patient and let him know to be expecting this call. [facility] will call patient to set up delivery for all fills. I do not see where he has had chemo education yet. Alba does he need to be set up with you? Thanks Rubin Luo RPh * Telephone Encounter - Andreina Castillo RPh - 11/01/2021 10:55 AM EDT Patient called today. We completed a conference call with [employer] - they were ableto obtain consent and start his benefits investigations and we should hear back by later today or tomorrow. * Telephone Encounter - Aida Luo RPh - 10/29/2021 3:38 PM EDT Permission granted by [employer] to pursue free drug on line application. Application submitted and email sent to Mr Felix to complete his portion. The [facility] are out of town for the weekend, but when he returns Monday he will complete authorization. Rubin Luo RP * Telephone Encounter - Brina Wang RPh - 10/28/2021 4:13 PM EDT No available funding at this time. We will proceed free drug application through [employer] Pharmacy to reach out to patient 10/29/2021 to notify. Brina Wang RPh * Telephone Encounter - Brina Wang RPh - 10/28/2021 3:08 PM EDT Ambulatory Pharmacy Prior Authorization Note Provider Intervention Required?: No- Pharmacy completed on your behalf. Drug: Xtandi Cover My Meds Carter: [id number] Determination: Approved Prior Authorization/Case #: [id number] Prior Authorization Expiration: 10/28/2022 Time to PA Submission in CMM: 15 min Time to PA Determination in CMM: Same day Additional Information: Co-Pay $3,111.12 For questions relating to this submission, please contact [facility] at [phone] documented in this encounterTrinity [facility]04-19-2022 Miscellaneous Notes* Telephone Encounter - Zohra Avila PA-C - 11/02/2021 12:00 PM EDT CBC and CMP orders placed Zohra Avila PA-C * Telephone Encounter - Katie Rosen MA - 11/02/2021 11:57 AM EDT Patient has an appt on 11/11/21. Would you like labs, if so place orders. Katie Rosen MA documented in this encounterTrinity [facility]04-18-2022 Miscellaneous Notes* Telephone Encounter - Clementine Aguilar RN - 11/01/2021 9:56 AM EDT Pt notified and verbalizes understanding. Clementine Aguilar RN * Telephone Encounter - Clementine Aguilar RN - 10/29/2021 1:58 PM EDT Call placed to pt. No answer. Message left requesting call back. Clementine Aguilar RN * Telephone Encounter - Clementine Aguilar RN - 10/29/2021 1:58 PM EDT ----- Message from Marco A Esqueda MD sent at 10/29/2021 1:52 PM EDT ----- Please inform the patient that his testosterone level is low indicating Lupron is effective, and heshould continue with the Lupron as scheduled. We are attempting to obtain enzalutamide for him on the patient assistance program. Thanks, BRM documented in this encounterTrinity Health [facility]04-14-2022 Miscellaneous Notes* Telephone Encounter - Clementine Aguilar RN - 10/28/2021 1:12 PM EDT Voicemail message received from Sandra @ [facility]. Reports the pt's 1st dose of Lupron was given on 02/12/2018. Dr Esqueda notified. Clementine Aguilar RN * Telephone Encounter - Clementine Aguilar RN - 10/28/2021 12:[address] Esqueda requests that we contact Dr Scruggs' office for pt's Lupron start date. Call placed to [facility]. No answer. Message left requesting call back. Clementine Aguilar RN documented in this encounterTrinity [facility] Campus04-14-2022 Miscellaneous Notes* Telephone Encounter - Clementine Aguilar RN - 10/28/2021 1:12 PM EDT This encounter was opened in error. @[email or web address]@ documented in this encounterTrinity Health [facility] Campus04-11-2022 Miscellaneous Notes* Telephone Encounter - Christo Howard APRN.CNP - 10/25/2021 4:05 PM EDT Hold off for now. Christo Howard APRN.ALEXA * Telephone Encounter - Katie Rosen MA - 10/25/2021 11:01 AM EDT If patient needs labs, please sign/place orders for 10/28/21. Thanks. Katie Rosen MA documented in this encounterTrinity [facility] CampusEvaluation + Plan note Future Appointments Appointment Date:05/13/2022 08:45:00 AM Scheduled Provider:Anthony SCRUGGS [facility] Appointment Type:URO Office Visit Diagnostic Tests Pending * PSA Total 11/08/21 Future Scheduled Tests Laboratory* Basic Metabolic Panel 09/20/21 [facility] evaluation + Plan note Future Appointments Appointment Date:10/28/2022 08:00:00 AM Scheduled Provider:Anthony SCRUGGS MD [facility] Appointment Type:URO Office Visit Diagnostic Tests Pending * PSA Total 09/14/22 Future Scheduled Tests Laboratory* Basic Metabolic Panel 09/20/21 [facility] evaluation + Plan note Future Appointments Appointment Date:10/20/2023 08:45:00 AM Scheduled Provider:Anthony SCRUGGS MD [facility] Appointment Type:URO Office Visit Diagnostic Tests Pending * PSA Total 04/17/23 [facility] evaluation note* Diagnosis OPENED IN ERROR- Primary To allow closing an encounter opened in error (used in SmartSet) documented in this encounter [facility]* Diagnosis Malignant neoplasm of prostate (HCC)- Primary Malignant neoplasm of prostate documented in this encounter [facility]* Diagnosis Malignant neoplasm of prostate (HCC)- Primary Malignant neoplasm of prostate documented in this encounter [facility]* Diagnosis Malignant neoplasm of prostate (HCC)- Primary Malignant neoplasm of prostate 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 documented in this encounter [facility]* Diagnosis Malignant neoplasm of prostate (HCC)- Primary Malignant neoplasm of prostate documented [facility] this encounter [facility]* Diagnosis Malignant neoplasm of prostate (HCC)- Primary Malignant neoplasm of prostate 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 note* Diagnosis Malignant neoplasm of prostate (HCC)- Primary Malignant neoplasm of prostate documented in this encounter [facility] note* Diagnosis Malignant neoplasm of prostate (HCC)- Primary Malignant neoplasm of prostate documented in this encounter [facility] note* Diagnosis Malignant neoplasm of prostate (HCC)- Primary Malignant neoplasm of prostate documented in this encounter 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 note* Diagnosis Malignant neoplasm of prostate (HCC)- Primary Malignant neoplasm of prostate documented in this encounter [facility] note* Diagnosis Malignant neoplasm of prostate (HCC)- Primary Malignant neoplasm of prostate documented in this encounter 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 note* Diagnosis Neoplasm of unspecified behavior of bone, soft tissue, and skin Actinic keratosis documented [facility] N[facility]ative - Reported* Type Description Date Medical History Nonrheumatic aortic valve stenos is Medical History Prostate cancer Medical History Obesity (BMI 30-39.9) Medical History GRADY (obstructive sleep apnea) Medical History Hyperlipidemia type II Medical History Essential hypertension Medical History Type 2 diabetes mellitus with hy perglycemia Medical History ASHD (arteriosclerotic heart dis ease) Medical History Depression screening Medical History Other congenital malformations o f iris Surgical History Appendectomy 07/27/2016 Surgical History TRUS/Bx 07/2014 Surgical History colonoscopy 05/2019 Surgical History EGD 05/2019 Surgical History LHC 08/2014 Surgical History 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 Surgical History Pancreatic Mass 08/2015 Hospitalization History see surgical hx N-Trig Other History general Narrative - Reported* Type Description Date Medical History Nonrheumatic aortic valve stenos is Medical History Prostate cancer Medical History Obesity (BMI 30-39.9) Medical History GRADY (obstructive sleep apnea) Medical History Hyperlipidemia type II Medical History Essential hypertension Medical History Type 2 diabetes mellitus with hy perglycemia Medical History ASHD (arteriosclerotic heart dis ease) Medical History Depression screening Medical History Other congenital malformations o f iris Medical History Pancreatic mass Surgical History Appendectomy 07/27/2016 Surgical History TRUS/Bx 07/2014 Surgical History colonoscopy 05/2019 Surgical History EGD 05/2019 Surgical History LHC 08/2014 Surgical History 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 Surgical History Pancreatic Mass 08/2015 Hospitalization History see surgical hx N-Trig Other Hospital course Narrative No data available for this section [facility] progress note No data available for this section [facility] Medications Administered Section Inactive Administered Medications - up to 3 most recent administrations Medication Order MAR Action Action Date Dose Rate Site denosumab 120 mg injection (XGEVA) 120 mg, SUBCUTANEOUS, ONCE, 1 dose, On [place] 11/18/21 at 1100, REFRIGERATE Given 11/18/2021 10:47 AM EDT 120 mg Arm, Left Inactive Administered Medications - up to 3 most recent administrations Medication Order MAR Action Action Date Dose Rate Site denosumab 120 mg injection (XGEVA) 120 mg, SUBCUTANEOUS, ONCE, 1 dose, On [place] 05/12/22 at 1030, REFRIGERATE Given 05/12/2022 10:26 AM EDT 120 mg Arm, Left Inactive Administered Medications - up to 3 most recent administrations Medication Order MAR Action Action Date Dose Rate Site denosumab 120 mg injection (XGEVA) 120 mg, SUBCUTANEOUS, ONCE, 1 dose, On [place] 08/11/22 at 1030, REFRIGERATE Given 08/11/2022 10:23 AM EST 120 mg Arm, Left Inactive Administered Medications - up to 3 most recent administrations Medication Order MAR Action Action Date Dose Rate Site denosumab 120 mg injection (XGEVA) 120 mg, SUBCUTANEOUS, ONCE, 1 dose, On [place] 11/10/22 at 1000, REFRIGERATE Given 11/10/2022 10:03 AM EDT 120 mg Back, Left Inactive Administered Medications - up to 3 most recent administrations Medication Order MAR Action Action Date Dose Rate Site denosumab 120 mg injection (XGEVA) 120 mg, SUBCUTANEOUS, ONCE, 1 dose, On [place] 02/02/23 at 1030, REFRIGERATE Given 02/02/2023 10:34 AM EDT 120 mg Arm, Left Inactive Administered Medications - up to 3 most recent administrations Medication Order MAR Action Action Date Dose Rate Site denosumab 120 mg injection (XGEVA) 120 mg, SUBCUTANEOUS, ONCE, 1 dose, On [place] 04/27/23 at 1000, REFRIGERATE Given 04/27/2023 9:57 AM EDT 120 mg Arm, Left Summary Purpose Family History No Family History Records Found No data available for this section No Family History Records FoundNo Family History Records FoundNo Family History Records FoundNo Family History Records Found Advance Directives No Advanced Directives Records FoundNo Advanced Directives Records FoundNo Advanced Directives Records FoundNo Advanced Directives Records FoundNo Advanced Directives Records Found Reason for Referral Specialty Diagnoses / Procedures Referred By Jeffery choudhury Referred To Contact Diagnoses Actinic keratosis 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, 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 [address] [place] [address] Referral ID Status Reason Start Date Expiration Date V isits Requested Visits Authorized [id number] Pending Review 1 1 Reason *FU 06/06 Right fr ontal sinus mass and cerumen impaction Diagnosis 1 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) Diagnosis 2 Impacted cerumen of right ear (H61.21) Referral Organization [facility] Thony lizama Referring Provider First Name Jamar Referring Provider Last Name Ball Referring Provider Specialty Internal Me daniel Referred Organization [facility] Referred Provider Emelina Louis Referred Address ,[place],[address] Referred Provider Specialty Ear, Nose an d Throat Referral Priority Routine General Notes Incidental finding o n XR of orbits prior to MR of abdomen. He c/o right sided rhinorrhea and congestion. He denies alteration in smell or odor. He denies fever, chills or headache Missy Meadows 05/30/2023 05:46:34 PM >received today, attachments made, notes locked, referral faxed Additional Source Comments Source Comments (unrecognize d section and content) In the event this informatio n is protected by the Federal Confidentiality of Alcohol and Drug Abuse Patient Records regulations: The Federal rules restrict any use of the information to criminally investigate or prosecute any alcohol or drug abuse patient.[facility] CampusIn the event this information is protected by the Federal Confidentiality of Alcohol and Drug Abuse Patient Records regulations: The Federal rules restrict any use of the information to criminally investigate or prosecute any alcohol or drug abuse patient.[facility] CampusIn the event this information is protected by the Federal Confidentiality of Alcohol and Drug Abuse Patient Records regulations: The Federal rules restrict any use of the information to criminally investigate or prosecute any alcohol or drug abuse patient.[facility] CampusIn the event this information is protected by the Federal Confidentiality of Alcohol and Drug Abuse Patient Records regulations: The Federal rules restrict any use of the information to criminally investigate or prosecute any alcohol or drug abuse patient.[facility] CampusIn the event this information is protected by the Federal Confidentiality of Alcohol and Drug Abuse Patient Records regulations: The Federal rules restrict any use of the information to criminally investigate or prosecute any alcohol or drug abuse patient.[facility] CampusIn the event this information is protected by the Federal Confidentiality of Alcohol and Drug Abuse Patient Records regulations: The Federal rules restrict any use of the information to criminally investigate or prosecute any alcohol or drug abuse patient.[facility] CampusIn the event this information is protected by the Federal Confidentiality of Alcohol and Drug Abuse Patient Records regulations: The Federal rules restrict any use of the information to criminally investigate or prosecute any alcohol or drug abuse patient.[facility] CampusIn the event this information is protected by the Federal Confidentiality of Alcohol and Drug Abuse Patient Records regulations: The Federal rules restrict any use of the information to criminally investigate or prosecute any alcohol or drug abuse patient.[facility] CampusIn the event this information is protected by the Federal Confidentiality of Alcohol and Drug Abuse Patient Records regulations: The Federal rules restrict any use of the information to criminally investigate or prosecute any alcohol or drug abuse patient.[facility] CampusIn the event this information is protected by the Federal Confidentiality of Alcohol and Drug Abuse Patient Records regulations: The Federal rules restrict any use of the information to criminally investigate or prosecute any alcohol or drug abuse patient.[facility] CampusIn the event this information is protected by the Federal Confidentiality of Alcohol and Drug Abuse Patient Records regulations: The Federal rules restrict any use of the information to criminally investigate or prosecute any alcohol or drug abuse patient.[facility] CampusIn the event this information is protected by the Federal Confidentiality of Alcohol and Drug Abuse Patient Records regulations: The Federal rules restrict any use of the information to criminally investigate or prosecute any alcohol or drug abuse patient.[facility] CampusIn the event this information is protected by the Federal Confidentiality of Alcohol and Drug Abuse Patient Records regulations: The Federal rules restrict any use of the information to criminally investigate or prosecute any alcohol or drug abuse patient.[facility] CampusIn the event this information is protected by the Federal Confidentiality of Alcohol and Drug Abuse Patient Records regulations: The Federal rules restrict any use of the information to criminally investigate or prosecute any alcohol or drug abuse patient.[facility] CampusIn the event this information is protected by the Federal Confidentiality of Alcohol and Drug Abuse Patient Records regulations: The Federal rules restrict any use of the information to criminally investigate or prosecute any alcohol or drug abuse patient.[facility] CampusIn the event this information is protected by the Federal Confidentiality of Alcohol and Drug Abuse Patient Records regulations: The Federal rules restrict any use of the information to criminally investigate or prosecute any alcohol or drug abuse patient.[facility] CampusIn the event this information is protected by the Federal Confidentiality of Alcohol and Drug Abuse Patient Records regulations: The Federal rules restrict any use of the information to criminally investigate or prosecute any alcohol or drug abuse patient.[facility] CampusIn the event this information is protected by the Federal Confidentiality of Alcohol and Drug Abuse Patient Records regulations: The Federal rules restrict any use of the information to criminally investigate or prosecute any alcohol or drug abuse patient.[facility] CampusIn the event this information is protected by the Federal Confidentiality of Alcohol and Drug Abuse Patient Records regulations: The Federal rules restrict any use of the information to criminally investigate or prosecute any alcohol or drug abuse patient.[facility] CampusIn the event this information is protected by the Federal Confidentiality of Alcohol and Drug Abuse Patient Records regulations: The Federal rules restrict any use of the information to criminally investigate or prosecute any alcohol or drug abuse patient.[facility] CampusIn the event this information is protected by the Federal Confidentiality of Alcohol and Drug Abuse Patient Records regulations: The Federal rules restrict any use of the information to criminally investigate or prosecute any alcohol or drug abuse patient.[facility] CampusIn the event this information is protected by the Federal Confidentiality of Alcohol and Drug Abuse Patient Records regulations: The Federal rules restrict any use of the information to criminally investigate or prosecute any alcohol or drug abuse patient.[facility] Campus[facility] the event this information is protected by the Federal Confidentiality of Alcohol and Drug Abuse Patient Records regulations: The Federal rules restrict any use of the information to criminally investigate or prosecute any alcohol or drug abuse patient.[facility] CampusIn the event this information is protected by the Federal Confidentiality of Alcohol and Drug Abuse Patient Records regulations: The Federal rules restrict any use of the information to criminally investigate or prosecute any alcohol or drug abuse patient.[facility] CampusIn the event this information is protected by the Federal Confidentiality of Alcohol and Drug Abuse Patient Records regulations: The Federal rules restrict any use of the information to criminally investigate or prosecute any alcohol or drug abuse patient.[facility] CampusIn the event this information is protected by the Federal Confidentiality of Alcohol and Drug Abuse Patient Records regulations: The Federal rules restrict any use of the information to criminally investigate or prosecute any alcohol or drug abuse patient.[facility] CampusIn the event this information is protected by the Federal Confidentiality of Alcohol and Drug Abuse Patient Records regulations: The Federal rules restrict any use of the information to criminally investigate or prosecute any alcohol or drug abuse patient.[facility] Care Teams (unrecognized sec tion and content) Rectangular [employer] Cooper Relationship Specialty Start Date End Date Jamar Fall DO PCP - General Internal Medicine 08/04/14 Rectangular Tank Cooper Relationship Specialty Start Date End Date Jamar Fall DO PCP - General Internal Medicine 08/04/14 Rectangular [employer] Cooper Relationship Specialty Start Date End Date Jamar Fall DO PCP - General Internal Medicine 08/04/14 Rectangular [employer] Cooper Relationship Specialty Start Date End Date Jamar Fall DO PCP - General Internal Medicine 08/04/14 Marco A Esqueda MD [address] [place] [address] Physician Hematology/Oncology 11/02/21 Christo Howard APRN.[employer] OPERATOR [address] [place] [address] Nurse Practitioner Hematology/Oncology 11/02/21 Clementine Aguilar, ANITHA [address] [facility] [address] Specialty Preschool Substitute Teacher Hematology/Oncology 11/02/21 Rectangular Tank Cooper Relationship Specialty Start Date End Date Jamar Fall DO PCP - General Internal Medicine 08/04/14 Marco A Esqueda MD [address] [place], [place] [id number] Physician Hematology/Oncology 11/02/21 Christo Howard, SURTASS ANALYST.[employer] PLANT OPERATOR [address] [place] [address] Nurse Practitioner Hematology/Oncology 11/02/21 Clementine Aguilar, ANITHA [address] [place] [address] Specialty Preschool Substitute Teacher Hematology/Oncology 11/02/21 Rectangular Tank Cooper Relationship Specialty Start Date End Date Jamar Fall, DO PCP - General Internal Medicine 08/04/14 Marco A Esqueda MD [address] [place], [place] [id number] Physician Hematology/Oncology 11/02/21 Christo Howard, SURTASS ANALYST.[employer] TR[employer] PLANT OPERATOR [address] [place] [address] Nurse Practitioner Hematology/Oncology 11/02/21 Clementine Aguilar, RN [address] [place] [address] Specialty Preschool Substitute Teacher Hematology/Oncology 11/02/21 Rectangular Tank Cooper Relationship Specialty Start Date End Date Jamar Fall, DO PCP - General Internal Medicine 08/04/14 Marco A Esqueda MD [address] [place] [address] Physician Hematology/Oncology 11/02/21 Christo Howard, SURTASS ANALYST.RA[employer] TR[employer] PLANT OPERATOR [address] [place], [place] [id number] [phone] Nurse Practitioner Hematology/Oncology 11/02/21 Clementine Aguilar, RN [address] [place], [place] [id number] Specialty Preschool Substitute Teacher Hematology/Oncology 11/02/21 Rectangular Tank Cooper Relationship Specialty Start Date End Date Jamar Fall, DO PCP - General Internal Medicine 08/04/14 Marco A Esqueda MD [address] [place] [address] Physician Hematology/Oncology 11/02/21 Christo Howard, SURTASS ANALYST.[facility] [address] [place] [address] Nurse Practitioner Hematology/Oncology 11/02/21 Clementine Aguilar, ANITHA [address] [place] [address] [place] [address] Specialty Preschool Substitute Teacher Hematology/Oncology 11/02/21 Rectangular Tank Cooper Relationship Specialty Start Date End Date Jamar Fall DO PCP - General Internal Medicine 08/04/14 Marco A Esqueda MD [address] [place] [address] Physician Hematology/Oncology 11/02/21 Christo Howard, SURTASS ANALYST.RA[employer] TR[employer] PLANT OPERATOR [address] [place] [address] Nurse Practitioner Hematology/Oncology 11/02/21 Clementine Aguilar, RN [address] [place] [address] Specialty Preschool Substitute Teacher Hematology/Oncology 11/02/21 Rectangular Tank Cooper Relationship Specialty Start Date End Date Jamar Fall DO PCP - General Internal Medicine 08/04/14 Marco A Esqueda MD [address] [place] [address] Physician Hematology/Oncology 11/02/21 Christo Howard, SURTASS ANALYST.RA[employer] TR[employer] PLANT OPERATOR [address] [place] [address] Nurse Practitioner Hematology/Oncology 11/02/21 Clementine Aguilar, RN [address] [place] [address] Specialty Preschool Substitute Teacher Hematology/Oncology 11/02/21 Rectangular Tank Cooper Relationship Specialty Start Date End Date Jamar Fall, DO PCP - General Internal Medicine 08/04/14 Marco A Esqueda MD [address] [place] [address] Physician Hematology/Oncology 11/02/21 Christo Howard, SURTASS ANALYST.RA[employer] TR[employer] PLANT OPERATOR [address] [place] [address] Nurse Practitioner Hematology/Oncology 11/02/21 Clementine Aguilar, RN [address] [place] [address] Specialty Preschool Substitute Teacher Hematology/Oncology 11/02/21 Rectangular Tank Cooper Relationship Specialty Start Date End Date Jamar Fall, DO PCP - General Internal Medicine 08/04/14 Marco A Esqueda MD [address] [place] [address] Physician Hematology/Oncology 11/02/21 Christo Howard, SURTASS ANALYST.RA[employer] TRACK PLANT OPERATOR [address] [place] [address] Nurse Practitioner Hematology/Oncology 11/02/21 Clementine Aguilar, RN [address] [place] [address] Specialty Preschool Substitute Teacher Hematology/Oncology 11/02/21 Rectangular Tank Cooper Relationship Specialty Start Date End Date Jamar Fall, DO PCP - General Internal Medicine 08/04/14 Marco A Esqueda MD [address] [place] [address] Physician Hematology/Oncology 11/02/21 Christo Howard, SURTASS ANALYST.RA[employer] TR[employer] PLANT OPERATOR [address] [place] [address] Nurse Practitioner Hematology/Oncology 11/02/21 Clementine Aguilar, ANITHA [address] [place] [address] Specialty Preschool Substitute Teacher Hematology/Oncology 11/02/21 Rectangular Tank Cooper Relationship Specialty Start Date End Date Jamar Fall, DO PCP - General Internal Medicine 08/04/14 Marco A Esqueda MD [address] [place] [address] Physician Hematology/Oncology 11/02/21 Christo Howard, SURTASS ANALYST.RA[employer] TR[employer] PLANT OPERATOR [address] [place] [address] Nurse Practitioner Hematology/Oncology 11/02/21 Clementine Aguilar, RN [address] [place] [address] Specialty Preschool Substitute Teacher Hematology/Oncology 11/02/21 Rectangular Tank Cooper Relationship Specialty Start Date End Date Jamar Fall, DO PCP - General Internal Medicine 08/04/14 Marco A Esqueda MD [address] [place] [address] Physician Hematology/Oncology 11/02/21 Christo Howard, SURTASS ANALYST.[facility] [address] [place] [address] Nurse Practitioner Hematology/Oncology 11/02/21 Clementine Aguilar, ANITHA [address] [place] [address] Specialty Preschool Substitute Teacher Hematology/Oncology 11/02/21 Rectangular Tank Cooper Relationship Specialty Start Date End Date Jamar Fall DO PCP - General Internal Medicine 08/04/14 Marco A Esqueda MD [address] [place] [address] Physician Hematology/Oncology 11/02/21 Christo Howard, SURTASS ANALYST.RA[employer] TR[employer] PLANT OPERATOR [address] [place] [address] [place] [address] Nurse Practitioner Hematology/Oncology 11/02/21 Clementine Aguilar, ANITHA [address] [place] [address] Specialty Preschool Substitute Teacher Hematology/Oncology 11/02/21 Rectangular Tank Cooper Relationship Specialty Start Date End Date Jamar Fall DO PCP - General Internal Medicine 08/04/14 Marco A Esqueda MD [address] [place] [address] [place] [address] Physician Hematology/Oncology 11/02/21 Christo Howard, SURTASS ANALYST.RAILW[employer] TRACK PLANT OPERATOR [address] [place] [address] [place] [address] Nurse Practitioner Hematology/Oncology 11/02/21 Clementine Aguilar, ANITHA [address] [facility] [facility] [address] [place], [place] [phone] Specialty Preschool Substitute Teacher Hematology/Oncology 11/02/21 Rectangular Tank Cooper Relationship Specialty Start Date End Date Jamar Fall DO PCP - General Internal Medicine 08/04/14 Marco A Esqueda MD [address] [place] [address] Physician Hematology/Oncology 11/02/21 Christo Howard, SURTASS ANALYST.RA[employer] TRACK PLANT OPERATOR [address] [place] [address] Nurse Practitioner Hematology/Oncology 11/02/21 Clementine Aguilar RN [address] [place] [address] Specialty Preschool Substitute Teacher Hematology/Oncology 11/02/21 Rectangular Tank Cooper Relationship Specialty Start Date End Date Jamar Fall DO PCP - General Internal Medicine 08/04/14 Marco A Esqueda MD [address] [place] [address] Physician Hematology/Oncology 11/02/21 Christo Howard, SURTASS ANALYST.RAILWAY TRACK PLANT OPERATOR [address] [facility] [place] [address] Nurse Practitioner Hematology/Oncology 11/02/21 Clementine Aguilar, RN [address] [place] [address] Specialty Preschool Substitute Teacher Hematology/Oncology 11/02/21 Rectangular Tank Cooper Relationship Specialty Start Date End Date Jamar Fall DO PCP - General Internal Medicine 08/04/14 Marco A Esqueda MD [address] [place] [address] [place] [address] Physician Hematology/Oncology 11/02/21 Christo Howard APRN.RAILW[employer] TRACK PLANT OPERATOR [address] [place] [address] [place] [address] Nurse Practitioner Hematology/Oncology 11/02/21 Clementine Aguilar, ANITHA [address] [place] [address] [place] [address] Specialty Preschool Substitute Teacher Hematology/Oncology 11/02/21 Rectangular Tank Cooper Relationship Specialty Start Date End Date Jamar Fall MD [address] [place] [address] PCP - General Internal Medicine 05/31/23 Rectangular Tank Cooper Relationship Specialty Start Date End Date Jamar Fall MD [address] [place] [address] PCP - General Internal Medicine 05/31/23 Reason for Visit (unrecogniz ed section and content) Reason Comments Lab Orders Reason Comments Medication Question Lupron Start Date Reason Onset Date Comments Opened In Error 10/28/2021 Reason Comments Care Coordination Testosterone Results Reason Comments Medication Authorization Xtandi Reason Comments Medication Update Xtandi free drug Reason Comments Care Coordination Covid Vaccine Reason Comments Oral Anti-cancer Agent Education Enzalut amide Reason Comments Care Coordination Medication Start Mele e - Enzalutamide Reason Comments Care Coordination Medication Update Reason Comments Prostate Cancer 2 week follow up Specialty Diagnoses / Procedures Referred By Contac t Referred To Contact Diagnoses Malignant neoplasm of prostate (HCC) Procedures DENOSUMAB INJECTION Marco A Esqueda MD [address] [place] [address] [place] [address] Himanshu Treat Ariella [address] [address] [place] [address] Referral ID Status Reason Start Date Expiration Date V isits Requested Visits Authorized [id number] Authorized 11/11/2021 07/16/2022 99 99 Reason Comments Care Coordination Refill Question Reason Comments Prostate Cancer 1 month follow up Reason Comments Prostate Cancer Follow up Reason Comments Prostate Cancer 3 month follow up Reason Comments Prostate Cancer Reason Comments Prostate Cancer Follow up Reason Comments Suspicious Skin Lesion Specialty Diagnoses / Procedures Referred By Contac t Referred To Contact Dermatology Diagnoses lesion of skin of R ear Marco A Esqueda MD [address] [address] Lety Holguin MD [address] [place] [address] Referral ID Status Reason Start Date Expiration Date Visits Re quested Visits Authorized [id number] Closed 08/04/2023 01/31/2024 1 1 (unrecognized sect ion and content) No Status Records FoundNo Status Records FoundNo Status Records FoundNo Status Records FoundNo Status Records Found INFORMATION SOURCE (unrecogn ized section and content) DATE CREATED AUTHOR 10/31/2022 [facility] DATE CREATED AUTHOR AUTHOR'S ORGANIZ ATION 04/26/2023 [facility] DATE CREATED AUTHOR AUTHOR'S ORGANIZ ATION 06/24/2023 [facility] DATE CREATED AUTHOR AUTHOR'S ORGANIZ ATION 08/08/2023 [facility] DATE CREATED AUTHOR AUTHOR'S ORGANIZ ATION 08/29/2023 [facility] EPIC FOR RECORDS PERTAINING TO PATIENTS WHO ARE OR HAVE BEEN ENROLLED IN A CHEMICAL DEPENDENCY/SUBSTANCEABUSE PROGRAM, SOME INFORMATION MAY BE OMITTED. This clinical summary was aggregated from multiple sources. Caution should be exercised in using it in the provision of clinical care. This summary normalizes information from multiple sources, and as a consequence, information in this document may materially change the coding, format and clinical context of patient data. In addition, data may be omitted in some cases. CLINICAL DECISIONS SHOULD BE BASED ON THE PRIMARY CLINICAL RECORDS. [facility]. provides no warranty or guarantee of the accuracy or completeness of information in this document.
== END 2023-09-14 09:24 | disposition home or self-care (01) ==
LOC: US 09:23
PROVIDERS: PCP Internal Medicine; Visit Provider Internal Medicine
DX: R22.32 Localized swelling, mass and lump, left upper limb (principal)
CPT/HCPCS: 76882

== ENCOUNTER 2023-10-09 10:43 | Outpatient (OUT) | payer MEDICARE, OTHER, SELFPAY ==
--- NOTE | 2023-10-09 10:56 | XR_ITS ---
The [address] [address] Patient Name: PABLO ONEIL MRN: [id number] date: 1945 Sex: M Assigned Patient Location: LAB Current Patient Location: LAB Accession/Order Number: [id number] Exam Date: 10/09/2023 11:03 Report Date: 10/09/2023 12:30 At the request of: ANTHONY SCRUGGS Procedure: XR abdomen 1V EXAM: XR abdomen 1V HISTORY: Microscopic Hematuria R31.29 COMPARISON: None. TECHNIQUE: AP view of the abdomen. FINDINGS: Nonobstructive bowel gas pattern is noted. There is probable punctate calculi over the right renal region. The osseous structures are intact. XR/XR abdomen 1V IMPRESSION: Nonobstructive bowel gas pattern. Possible right renal nephrolithiasis. Constipation. Electronically authenticated by: AIXA RUIZ Date: 10/09/2023 12:30
--- OUTSIDE RECORDS SUMMARY | 2023-10-09 11:01 | XMS_ITS | CCD ---
Author Organization [facility] Care Team Providers Care Dimension Mill Worker Name Role Phone Jamar Fall DO Primary Care Provider Dheeraj JAMES, Marco A R Unavailable [facility].ALEXA, Christo Unavailable [phone] Lauren WELSH, Clementine Unavailable JAMAR FALL Primary Care Physician [phone] Jamar Fall DO Primary Care Provider Dheeraj JAMES, Marco A R Unavailable [facility].GARMENT WORKER, Christo Unavailable [phone] Lauren WELSH, Clementine Unavailable Jamar Fall DO Primary Care Provider Dheeraj JAMES, Marco A R Unavailable [facility].ALEXA, Christo Unavailable Lauren WELSH, Clementine Unavailable Jamar Fall Unavailable JUAN DAVID, DR ALCARAZ Admitting Unavailable JUAN DAVID, DR ALCARAZ Attending Unavailable JUAN DAVID, DR ALCARAZ Primary Care Unavailable JUAN DAVID, DR ALCARAZ Consulting Unavailable Cynthia Torres Consulting Unavailable SCRUGGS ., DR CRUZ Admitting Unavailable SCRUGGS ., DR CRUZ Attending Unavailable JUAN DAVID, DR ALCARAZ Primary Care Unavailable KAEL ., DR CRUZ Consulting Unavailable DHEERAJ, DR SHARIF Admitting Unavailable DHEERAJ, DR SHARIF Attending Unavailable JUAN DAVID, DR ALCARAZ Primary Care Unavailable DHEERJA, DR SHARIF Consulting Unavailable FEDE DE JESUS Consulting Unavailable UMANALUIZ Consulting Unavailable TAMEKA, LORA Admitting Unavailable TAMEKA, LORA Attending Unavailable JUAN DAVID, DR ALCARAZ Primary Care Unavailable TAMEKA, LORA Consulting Unavailable SCRUGGS ., DR CRUZ Admitting [...] RN, Clementine Unavailable BRIDGER MULLIGAN Attending Unavailable JUAN DAVID, JAMAR E Primary Care Unavailable MARCO A ESQUEDA Referring Unavailable CHRISTO HOWARD Attending Unavailable JUAN DAVID, JAMAR E Primary Care Unavailable MARCO A ESQUEDA R Referring Unavailable JUAN DAVID, JAMAR E Primary Care Unavailable MARCO A ESQUEDA R Referring Unavailable BALL, JAMAR E Primary Care Unavailable MARCO A ESQUEDA R Referring Unavailable CHRISTO HOWARD Attending Unavailable BALL, JAMAR E Primary Care [...] Unavailable BALL, JAMAR E Primary Care Unavailable BALL, JAMAR E Primary Care Unavailable [...] Care Unavailable MARCO A ESQUEDA Referring Unavailable Jamar Fall MD Primary Care Provider LONG BOO Attending Unavailable MARCO A ESQUEDA Referring Unavailable EMELINA LOUIS Attending Unavailable JAMAR FALL Referring Unavailable PABLO CHRISTINA Attending Unavailable Allergies Allergy Classification Reported Allergen(s) Allergy Type Date of Onset Reaction(s) Facility (18 sources) Penicillins; Translations: [PENICILLINS] Drug Allergy 1 Unknown [facility] (20 sources) Penicillin G; Translations: [penicillin G benzathine] Drug Allergy 1 Unknown (qualifier value) [facility] (12 sources) Penicillins Drug Allergy 5 Unknown [facility] (13 sources) Simvastatin; Translations: [SIMVASTATIN] Drug Allergy 2 Unknown [facility] (1 source) Penicillins Drug allergy (disorder) 5 [facility] (1 source) Penicillin Drug Allergy Unknown [facility] Other (1 source) Allergies Reconciled Propensity to adverse reactions Unknown [facility] Other (1 source) patient allergy list reviewed by nurse or physicia Propensity to adverse reactions 9 Comment:Done [facility] Other (3 sources) Simvastatin Propensity to adverse [...] Comment on above: Take 2 tablets by [facility] once daily. 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 2017 Cancer of prostate (5 sources) History of malignant neoplasm of prostate; Translations: [Personal history of malignant neoplasm of prostate] Onset: 04-14-2023 12-23-2019 Episodic Conduction disorders (18 sources) Left bundle branch block; Translations: [Other left bundle branch block] Onset: 08-25-2014 Chronic Coronary atherosclerosis and other heart disease (20 sources) Coronary arteriosclerosis; Translations: [Atherosclerotic heart disease of [place] coronary artery without angina pectoris] Onset: 10-10-2014 [...] Reference Range Facility No Panel Informationon 08-28 [facility] Healthcare Type of biopsy: schmidt ential [...] yes Amount of lidocaine used: 0.5 cc [facility] CNOVSPon 08-03-2023 CNOVSP Visit (SP) Office (H EMA) ELVIRAPABLO Jessica ([id number]) 1945 M Date Time Provider Department 08/03/23 [...] OTHER PHYSICIANS: Dr. Anthony Scruggs, Dr. Khan, [facility] Cardiology Portions of this encounter note have [...] mg 24 hr tablet Take by mouth. 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 Left base margin positive for ne (more content not included)... Normal [facility] PABLO FELIX ([id number]) 1945 M Date Time Provider Department 08/03/23 MARCO A ESQUEDA [facility] During your visit today, we recorded the following information about you: Alexandrea Ernst 08/03/2023 9:23 AM Signed Patient needs an appointment with Dermatology for right ear lesion. Yudy/Narciso: Can you please refer patient to [facility] Derm and follow up? Thanks! Naila Rodriguez 08/03/2023 9:51 AM Signed Yudy:Information ready for you. Keysha Neil 08/04/2023 8:05 AM Signed Records faxed to [facility]. Naila Liao 08/07/2023 2:54 PM Signed Called [facility] Derm office. Patient is scheduled to see SOLUTION DESIGN ENGINEER Long Boo on 08/28 @ 11:25. Naila Horne Pss Allergies As of Date: 08/03/2023 Noted Allergy Reaction PENICILLINS 08/06/2014 16 - Unknown SIMVASTATIN 07/05/2002 16 - Unknown Date Reviewed: 08/03/2023 Reviewed by: Katie Rosen MA - Fully Assessed Reason for Visit: Referral Information [5447] Cmt: Dermatology Prescriptions as of 08/07/2023 - [...] 24 hr tablet Take by mouth. - Qsndrdbnmjlfd-Wbeqgbtj-Miry in (MULTIVITAMIN 50 PLUS) tab Take 1 [...] Status:Closed by ALEXANDREA ERNST on 08/07/23 Normal [facility] CBC W Auto Differential pane l (Bld)on 07-27-2023 Basophils (Bld) [#/Vol] 0.05 10*3/uL Normal <0.11 [facility] Comment on above: Order Comment: Speci men Type: BLOOD SPECIMENOrdering Facility: [facility] Address: [address] [place] [address] Performed By: #### 5 7021-8 ####[facility] LABCLIA [id number] [place] [address] Basophils/100 WBC (Bld) 0.8 % Normal [facility] Comment on above: Order Comment: Speci men Type: BLOOD SPECIMENOrdering Facility: [facility] Address: [address] [place] [address] Performed By: #### 5 7021-8 ####[facility] LABCLIA [id number] [place] [address] Differential cell count method Nom (Bld) Auto Normal [facility] Comment on above: Order Comment: Speci men Type: BLOOD SPECIMENOrdering Facility: [facility] Address: [address] [place] [address] Performed By: #### 5 7021-8 ####[facility] LABCLIA [id number] [place] [address] Eosinophils (Bld) [#/Vol] 0.40 10*3/uL Normal <0.46 [facility] Comment on above: Order Comment: Speci men Type: BLOOD SPECIMENOrdering Facility: [facility] Address: [address] [place] [address] Performed By: #### 5 7021-8 ####[facility] LABCLIA [id number] [place] [address] Eosinophils/100 WBC (Bld) 6.2 % Normal [facility] Comment on above: Order Comment: Speci men Type: BLOOD SPECIMENOrdering Facility: [facility] Address: [address] [place] [address] Performed By: #### 5 7021-8 ####[facility] LABCLIA [id number] [place] [address] Erythrocyte distribution width (RBC) [Ratio] 12.5 % Normal 11.5-15.0 [facility] Comment on above: Order Comment: Speci men Type: BLOOD SPECIMENOrdering Facility: [facility] Address: [address] [place] [address] Performed By: #### 5 7021-8 ####[facility] LABCLIA [id number] [place] [address] Hematocrit (Bld) [Volume fraction] 34.8 % Low 39.0-51.0 [facility] Comment on above: Order Comment: Speci men Type: BLOOD SPECIMENOrdering Facility: [facility] Address: [address] [place] [address] Performed By: #### 5 7021-8 ####[facility] LABIA [id number] [place] [address] Hemoglobin (Bld) [Mass/Vol] 11.8 g/dL Low 13.0-17.0 [facility] Comment on above: Order Comment: Speci men Type: BLOOD SPECIMENOrdering Facility: [facility] Address: [address] [place] [address] Performed By: #### 5 7021-8 ####[facility] LABCLIA [id number] [place] [address] Immature granulocytes (Bld) [#/Vol] 0.05 10*3/uL Normal <0.10 [facility] Comment on above: Order Comment: Speci men Type: BLOOD SPECIMENOrdering Facility: [facility] Address: [address] [place] [address] Performed By: #### 5 7021-8 ####[facility] LABCLIA [id number] [place] [address] Immature granulocytes/100 WBC (Bld) 0.8 % Normal [facility] Comment on above: Order Comment: Speci men Type: BLOOD SPECIMENOrdering Facility: [facility] Address: [address] [place] [address] Performed By: #### 5 7021-8 ####[facility] LABCLIA [id number] [place] [address] Lymphocytes (Bld) [#/Vol] 1.78 10*3/uL Normal 1.00-4.00 [facility] Comment on above: Order Comment: Speci men Type: BLOOD SPECIMENOrdering Facility: [facility] Address: [address] [place] [address] Performed By: #### 5 7021-8 ####[facility] LABCLIA [id number] [place] [address] Lymphocytes/100 WBC (Bld) 27.7 % Normal [facility] Comment on above: Order Comment: Speci men Type: BLOOD SPECIMENOrdering Facility: [facility] Address: [address] [place] [address] Performed By: #### 5 7021-8 ####[facility] LABCLIA [id number] [place] [address] MCH (RBC) [Entitic mass] 32.2 pg Normal 26.0-34.0 [facility] Comment on above: Order Comment: Speci men Type: BLOOD SPECIMENOrdering Facility: [facility] Address: [address] [place] [address] Performed By: #### 5 7021-8 ####[facility] LABCLIA [id number] [place] [address] MCHC (RBC) [Mass/Vol] 33.9 g/dL Normal 30.5-36.0 [facility] Comment on above: Order Comment: Speci men Type: BLOOD SPECIMENOrdering Facility: [facility] Address: [address] [place] [address] Performed By: #### 5 7021-8 ####[facility] LABCLIA [id number] [place] [address] MCV (RBC) [Entitic vol] 94.8 fL Normal 80.0-100.0 [facility] Comment on above: Order Comment: Speci men Type: BLOOD SPECIMENOrdering Facility: [facility] Address: [address] [place] [address] Performed By: #### 5 7021-8 ####[facility] LABCLIA [id number] [place] [address] Monocytes (Bld) [#/Vol] 0.67 10*3/uL Normal <0.87 [facility] Comment on above: Order Comment: Speci men Type: BLOOD SPECIMENOrdering Facility: [facility] Address: [address] [place] [address] Performed By: #### 5 7021-8 ####[facility] LABCLIA [id number] [place] [address] Monocytes/100 WBC (Bld) 10.4 % Normal [facility] Comment on above: Order Comment: Speci men Type: BLOOD SPECIMENOrdering Facility: [facility] Address: [address] [place] [address] Performed By: #### 5 7021-8 ####[facility] LABCLIA [id number] [place] [address] Neutrophils (Bld) [#/Vol] 3.48 10*3/uL Normal 1.45-7.50 [facility] Comment on above: Order Comment: Speci men Type: BLOOD SPECIMENOrdering Facility: [facility] Address: [address] [place] [address] Performed By: #### 5 7021-8 ####[facility] LABCLIA [id number] [place] [address] Neutrophils/100 WBC (Bld) 54.1 % Normal [facility] Comment on above: Order Comment: Speci men Type: BLOOD SPECIMENOrdering Facility: [facility] Address: [address] [place] [address] Performed By: #### 5 7021-8 ####[facility] LABCLIA [id number] [place] [address] Nucleated RBC (Bld) [#/Vol] 10*3/uL Normal <0.01 [facility] Comment on above: Order Comment: Speci men Type: BLOOD SPECIMENOrdering Facility: [facility] Address: [address] [place] [address] Performed By: #### 5 7021-8 ####[facility] LABCLIA [id number] [place] [address] Nucleated RBC/100 WBC (Bld) [Ratio] 0.0 /100 WBC Normal [facility] Comment on above: Order Comment: Speci men Type: BLOOD SPECIMENOrdering Facility: [facility] Address: [address] [place] [address] Performed By: #### 5 7021-8 ####[facility] LABCLIA [id number] [place] [address] Platelet mean volume (Bld) [Entitic vol] 9.9 fL Normal 9.0-12.7 [facility] Comment on above: Order Comment: Speci men Type: BLOOD SPECIMENOrdering Facility: [facility] Address: [address] [place] [address] Performed By: #### 5 7021-8 ####[facility] LABCLIA [id number] [place] [address] Platelets (Bld) [#/Vol] 199 10*3/uL Normal 150-400 [facility] Comment on above: Order Comment: Speci men Type: BLOOD SPECIMENOrdering Facility: [facility] Address: [address] [place] [address] Performed By: #### 5 7021-8 ####[facility] LABCLIA [id number] [place] [address] RBC (Bld) [#/Vol] 3.67 10*6/uL Low 4.20-6.00 [facility] Comment on above: Order Comment: Speci men Type: BLOOD SPECIMENOrdering Facility: [facility] Address: [address] [place] [address] Performed By: #### 5 7021-8 ####[facility] LABCLIA [id number] [place] [address] WBC (Bld) [#/Vol] 6.43 10*3/uL Normal 3.70-11.00 [facility] Comment on above: Order Comment: Speci men Type: BLOOD SPECIMENOrdering Facility: [facility] Address: [address] [place] [address] Performed By: #### 5 7021-8 ####[facility] LABCLIA [id number] [place] [address] Comprehensive metabolic 2000 panelon 07-27-2023 Albumin [Mass/Vol] 4.2 g/dL Normal 3.9-4.9 [facility] Comment on above: Order Comment: Speci men Type: BLOOD SPECIMENOrdering Facility: [facility] Address: [address] [place] [address] Performed By: #### 2 4323-8 ####[facility] LABCLIA [id number] [place] [address] ALP [Catalytic activity/Vol] 73 U/L Normal 38-113 [facility] Comment on above: Order Comment: Speci men Type: BLOOD SPECIMENOrdering Facility: [facility] Address: [address] [place] [address] Performed By: #### 2 4323-8 ####[facility] LABCLIA [id number] [place] [address] ALT [Catalytic activity/Vol] 16 U/L Normal 10-54 [facility] Comment on above: Order Comment: Speci men Type: BLOOD SPECIMENOrdering Facility: [facility] Address: [address] [place] [address] Performed By: #### 2 4323-8 ####[facility] LABCLIA [id number] [place] [address] Anion gap [Moles/Vol] 10 mmol/L Normal 9-18 [facility] Comment on above: Order Comment: Speci men Type: BLOOD SPECIMENOrdering Facility: [facility] Address: [address] [place] [address] Performed By: #### 2 4323-8 ####[facility] LABCLIA [id number] [place] [address] AST [Catalytic activity/Vol] 17 U/L Normal 14-40 [facility] Comment on above: Order Comment: Speci men Type: BLOOD SPECIMENOrdering Facility: [facility] Address: [address] [place] [address] Performed By: #### 2 4323-8 ####[facility] LABCLIA [id number] [place] [address] Bilirubin [Mass/Vol] 0.6 mg/dL Normal 0.2-1.3 [facility] Comment on above: Order Comment: Speci men Type: BLOOD SPECIMENOrdering Facility: [facility] Address: [address] [place] [address] Performed By: #### 2 4323-8 ####[facility] LABCLIA [id number] [place] [address] Calcium [Mass/Vol] 9.5 mg/dL Normal 8.5-10.2 [facility] Comment on above: Order Comment: Speci men Type: BLOOD SPECIMENOrdering Facility: [facility] Address: [address] [place] [address] Performed By: #### 2 4323-8 ####[facility] LABCLIA [id number] [place] [address] Chloride [Moles/Vol] 102 mmol/L Normal 97-105 [facility] Comment on above: Order Comment: Speci men Type: BLOOD SPECIMENOrdering Facility: [facility] Address: [address] [place] [address] Performed By: #### 2 4323-8 ####[facility] LABCLIA [id number] [place] [address] CO2 [Moles/Vol] 26 mmol/L Normal 22-30 [facility] Comment on above: Order Comment: Speci men Type: BLOOD SPECIMENOrdering Facility: [facility] Address: [address] [place] [address] Performed By: #### 2 4323-8 ####[facility] LABCLIA [id number] [place] [address] Creatinine [Mass/Vol] 0.85 mg/dL Normal 0.73-1.22 [facility] Comment on above: Order Comment: Nicanor camilo Type: BLOOD SPECIMENOrdering Facility: [facility] Address: [address] [place] [address] Performed By: #### 2 4323-8 ####[facility] LABCLIA [id number] [place] [address] Creatinine and Glomerular filtration rate.predicted panel (S/P/Bld) 89 mL/min/1.73m??? Normal >=60 [facility] Comment on above: Order Comment: Nicanor camilo Type: BLOOD SPECIMENOrdering Facility: [facility] Address: [address] [place] [address] Result Comment: Renae mated Glomerular Filtration Rate [...] actual GFR. Performed By: #### 2 4323-8 ####[facility] LABCLIA [id number] [place] [address] Glucose [Mass/Vol] 117 mg/dL High 74-99 [facility] Comment on above: Order Comment: Nicanor camilo Type: BLOOD SPECIMENOrdering Facility: [facility] Address: [address] [place] [address] Result Comment: The [place] Diabetes Association (ADA) provides guidance for cutoff [...] Standards of Medical Care in Diabetes 2016, [place] [employer]. Diabetes Care. 2016.39(Suppl 1). Performed By: #### 2 4323-8 ####[facility] LABCLIA [id number] [place] [address] Potassium [Moles/Vol] 4.8 mmol/L Normal 3.7-5.1 [facility] Comment on above: Order Comment: Speci men Type: BLOOD SPECIMENOrdering Facility: [facility] Address: [address] [place] [address] Performed By: #### 2 4323-8 ####[facility] LABCLIA [id number] [place] [address] Protein [Mass/Vol] 6.6 g/dL Normal 6.3-8.0 [facility] Comment on above: Order Comment: Speci men Type: BLOOD SPECIMENOrdering Facility: [facility] Address: [address] [place] [address] Performed By: #### 2 4323-8 ####[facility] LABCLIA [id number] [place] [address] Sodium [Moles/Vol] 138 mmol/L Normal 136-144 [facility] Comment on above: Order Comment: Speci men Type: BLOOD SPECIMENOrdering Facility: [facility] Address: [address] [place] [address] Performed By: #### 2 4323-8 ####[facility] LABCLIA [id number] [place] [address] Urea nitrogen [Mass/Vol] 13 mg/dL Normal 9-24 [facility] Comment on above: Order Comment: Speci men Type: BLOOD SPECIMENOrdering Facility: [facility] Address: [address] [place] [address] [place] [id number] Performed By: #### 2 4323-8 ####[facility] LABCLIA [id number] [place] [address] PSA SerPl-mCncon 07-27-2023 Prostate specific Ag [Mass/Vol] 0.13 ng/mL Normal <2.60 [facility] Comment on above: Order Comment: Speci men Type: BLOOD SPECIMENOrdering Facility: [facility] Address: [address] [place] [address] Result Comment: Tota l PSA test methodology used is the Electrochemiluminescence Immunoassay by [employer]. Total PSA values by differing methodologies cannot be interchanged. Performed By: #### 2 857-1 ####[facility] LABCLIA [id number] DAVIDHerlinda THREE MILE BAYDES [id number] [place], [place] [address] [place] Office Visiton 06-22-2023 Follow-up visit [id number] Pablo Felix 1945 M Date Provider Department Center 06/22/2023 [facility] MULLIG[facility] C[facility] Family History Problem Relation Age of Onset Coronary artery disease Father Family Status - Relation Status Age at Father Level of Service:28023 NM OFFICE/OUTPATIENT ESTABLISHED MOD MDM 30-39 MIN Normal [facility] CNOVSPon 04-27-2023 CNOVSP Visit (SP) Office (H EMASA) PABLO FELIX ([id number]) 1945 M Date Time Provider Department 04/27/23 10:00 AM CHRISTO HOWARD During your visit today, we recorded the following information about you: Temperature Pulse Respiration Blood pressure 97 degrees 50/minute 16/minute 141/49 Weight Height 92.5 kg 1.676 m Christo Howard APRN.GARMENT WORKER 04/27/2023 11:16 AM Signed PATIENT NAME: Pablo Felix DATE: 04/27/2023 PRIMARY CARE PHYSICIAN: Dr. Jamar Fall OTHER PHYSICIANS: Dr. Anthony Scruggs, Dr. Khan, [facility] Cardiology Portions of this encounter note have [...] mg 24 hr tablet Take by mouth. 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 Left base margin positive for neoplasm. Seminal vesicles with no diagnostic abnormality. 2 resected lymph nodes negati (more content not included)... Normal [facility] Basic metabolic 2000 panelon 04-24-2023 Anion gap [Moles/Vol] 13 mmol/L Normal 9-18 [facility] Comment on above: Order Comment: Speci men Type: BLOOD SPECIMENOrdering Facility: [facility] Address: [address] [place] [address] Performed By: #### 2 4321-2 ####[facility] LABCLIA [id number] [place] [address] Calcium [Mass/Vol] 10.2 mg/dL Normal 8.5-10.2 [facility] Comment on above: Order Comment: Speci men Type: BLOOD SPECIMENOrdering Facility: [facility] Address: [address] [place] [address] Performed By: #### 2 4321-2 ####[facility] LABCLIA [id number] [place] [address] Chloride [Moles/Vol] 100 mmol/L Normal 97-105 [facility] Comment on above: Order Comment: Speci men Type: BLOOD SPECIMENOrdering Facility: [facility] Address: [address] [place] [address] Performed By: #### 2 4321-2 ####[facility] LABCLIA [id number] [place] [address] CO2 [Moles/Vol] 24 mmol/L Normal 22-30 [facility] Comment on above: Order Comment: Speci men Type: BLOOD SPECIMENOrdering Facility: [facility] Address: [address] [place] [place] [address] Performed By: #### 2 4321-2 ####[facility] LABCLIA [id number] [place] [address] Creatinine [Mass/Vol] 0.75 mg/dL Normal 0.73-1.22 [facility] Comment on above: Order Comment: Speci men Type: BLOOD SPECIMENOrdering Facility: [facility] Address: [address] [place] [address] Performed By: #### 2 4321-2 ####[facility] LABCLIA [id number] [place] [address] Creatinine and Glomerular filtration rate.predicted panel (S/P/Bld) 93 mL/min/1.73m??? Normal >=60 [facility] Comment on above: Order Comment: Nicanor camilo Type: BLOOD SPECIMENOrdering Facility: [facility] Address: [address] [place] [address] Result Comment: Renae mated Glomerular Filtration Rate [...] actual GFR. Performed By: #### 2 4321-2 ####[facility] LABIA [id number] [place] [address] Glucose [Mass/Vol] 113 mg/dL High 74-99 [facility] Comment on above: Order Comment: Nicanor camilo Type: BLOOD SPECIMENOrdering Facility: [facility] Address: [address] [place] [address] Result Comment: The [place] [employer] (ADA) provides guidance for cutoff [...] Standards of Medical Care in Diabetes 2016, [place] [employer]. Diabetes Care. 2016.39(Suppl 1). Performed By: #### 2 4321-2 ####[facility] LABCLIA [id number] [place] [address] Potassium [Moles/Vol] 4.9 mmol/L Normal 3.7-5.1 [facility] Comment on above: Order Comment: Speci men Type: BLOOD SPECIMENOrdering Facility: [facility] Address: [address] [place] [address] Performed By: #### 2 4321-2 ####[facility] LABCLIA [id number] [place] [address] Sodium [Moles/Vol] 137 mmol/L Normal 136-144 [facility] Comment on above: Order Comment: Speci men Type: BLOOD SPECIMENOrdering Facility: [facility] Address: [address] [place] [address] Performed By: #### 2 4321-2 ####[facility] LABCLIA [id number] [place] [address] Urea nitrogen [Mass/Vol] 11 mg/dL Normal 9-24 [facility] Comment on above: Order Comment: Speci men Type: BLOOD SPECIMENOrdering Facility: [facility] Address: [address] [place] [address] Performed By: #### 2 4321-2 ####[facility] LABCLIA [id number] [place] [address] CBC W Auto Differential pane l (Bld)on 04-24-2023 Basophils (Bld) [#/Vol] 0.03 10*3/uL Normal <0.11 [facility] Comment on above: Order Comment: Speci men Type: BLOOD SPECIMENOrdering Facility: [facility] Address: [address] [place] [address] Performed By: #### 5 7021-8 ####[facility] LABCLIA [id number] [place] [address] Basophils/100 WBC (Bld) 0.4 % Normal [facility] Comment on above: Order Comment: Speci men Type: BLOOD SPECIMENOrdering Facility: [facility] Address: [address] [place] [address] Performed By: #### 5 7021-8 ####[facility] LABCLIA [id number] [place] [address] Differential cell count method Nom (Bld) Auto Normal [facility] Comment on above: Order Comment: Speci men Type: BLOOD SPECIMENOrdering Facility: [facility] Address: [address] [place] [address] Performed By: #### 5 7021-8 ####[facility] LABCLIA [id number] [place] [address] Eosinophils (Bld) [#/Vol] 0.23 10*3/uL Normal <0.46 [facility] Comment on above: Order Comment: Speci men Type: BLOOD SPECIMENOrdering Facility: [facility] Address: [address] [place] [address] Performed By: #### 5 7021-8 ####[facility] LABCLIA [id number] [place] [address] Eosinophils/100 WBC (Bld) 3.4 % Normal [facility] Comment on above: Order Comment: Speci men Type: BLOOD SPECIMENOrdering Facility: [facility] Address: [address] [place] [address] Performed By: #### 5 7021-8 ####[facility] LABCLIA [id number] [place] [address] Erythrocyte distribution width (RBC) [Ratio] 13.1 % Normal 11.5-15.0 [facility] Comment on above: Order Comment: Speci men Type: BLOOD SPECIMENOrdering Facility: [facility] Address: [address] [place] [address] Performed By: #### 5 7021-8 ####[facility] LABIA [id number] [place] [address] Hematocrit (Bld) [Volume fraction] 36.2 % Low 39.0-51.0 [facility] Comment on above: Order Comment: Speci men Type: BLOOD SPECIMENOrdering Facility: [facility] Address: [address] [place] [address] Performed By: #### 5 7021-8 ####[facility] LABCLIA [id number] [place] [address] Hemoglobin (Bld) [Mass/Vol] 12.2 g/dL Low 13.0-17.0 [facility] Comment on above: Order Comment: Speci men Type: BLOOD SPECIMENOrdering Facility: [facility] Address: [address] [place] [address] Performed By: #### 5 7021-8 ####[facility] LABCLIA [id number] [place] [address] Immature granulocytes (Bld) [#/Vol] 0.07 10*3/uL Normal <0.10 [facility] Comment on above: Order Comment: Speci men Type: BLOOD SPECIMENOrdering Facility: [facility] Address: [address] [place] [address] Performed By: #### 5 7021-8 ####[facility] LABCLIA [id number] [place] [address] Immature granulocytes/100 WBC (Bld) 1.0 % Normal [facility] Comment on above: Order Comment: Speci men Type: BLOOD SPECIMENOrdering Facility: [facility] Address: [address] [place] [address] Performed By: #### 5 7021-8 ####[facility] LABCLIA [id number] [place] [address] Lymphocytes (Bld) [#/Vol] 2.02 10*3/uL Normal 1.00-4.00 [facility] Comment on above: Order Comment: Speci men Type: BLOOD SPECIMENOrdering Facility: [facility] Address: [address] [place] [address] Performed By: #### 5 7021-8 ####[facility] LABCLIA [id number] [place] [address] Lymphocytes/100 WBC (Bld) 29.7 % Normal [facility] Comment on above: Order Comment: Speci men Type: BLOOD SPECIMENOrdering Facility: [facility] Address: [address] [place] [address] Performed By: #### 5 7021-8 ####[facility] LABCLIA [id number] [place] [address] MCH (RBC) [Entitic mass] 31.5 pg Normal 26.0-34.0 [facility] Comment on above: Order Comment: Speci men Type: BLOOD SPECIMENOrdering Facility: [facility] Address: [address] [place] [address] Performed By: #### 5 7021-8 ####[facility] LABCLIA [id number] [place] [address] MCHC (RBC) [Mass/Vol] 33.7 g/dL Normal 30.5-36.0 [facility] Comment on above: Order Comment: Speci men Type: BLOOD SPECIMENOrdering Facility: [facility] Address: [address] [place] [address] Performed By: #### 5 7021-8 ####[facility] LABCLIA [id number] [place] [address] MCV (RBC) [Entitic vol] 93.5 fL Normal 80.0-100.0 [facility] Comment on above: Order Comment: Speci men Type: BLOOD SPECIMENOrdering Facility: [facility] Address: [address] [place] [address] Performed By: #### 5 7021-8 ####[facility] LABCLIA [id number] [place] [address] Monocytes (Bld) [#/Vol] 0.62 10*3/uL Normal <0.87 [facility] Comment on above: Order Comment: Speci men Type: BLOOD SPECIMENOrdering Facility: [facility] Address: [address] [place] [address] Performed By: #### 5 7021-8 ####[facility] LABCLIA [id number] [place] [address] Monocytes/100 WBC (Bld) 9.1 % Normal [facility] Comment on above: Order Comment: Speci men Type: BLOOD SPECIMENOrdering Facility: [facility] Address: [address] [place] [address] Performed By: #### 5 7021-8 ####[facility] LABCLIA [id number] [place] [address] Neutrophils (Bld) [#/Vol] 3.83 10*3/uL Normal 1.45-7.50 [facility] Comment on above: Order Comment: Speci men Type: BLOOD SPECIMENOrdering Facility: [facility] Address: [address] [place] [address] Performed By: #### 5 7021-8 ####[facility] LABIA [id number] [place] [address] Neutrophils/100 WBC (Bld) 56.4 % Normal [facility] Comment on above: Order Comment: Speci men Type: BLOOD SPECIMENOrdering Facility: [facility] Address: [address] [place] [address] Performed By: #### 5 7021-8 ####[facility] LABCLIA [id number] [place] [address] Nucleated RBC (Bld) [#/Vol] 10*3/uL Normal <0.01 [facility] Comment on above: Order Comment: Speci men Type: BLOOD SPECIMENOrdering Facility: [facility] Address: [address] [place] [address] Performed By: #### 5 7021-8 ####[facility] LABIA [id number] [place] [address] Nucleated RBC/100 WBC (Bld) [Ratio] 0.0 /100 WBC Normal [facility] Comment on above: Order Comment: Speci men Type: BLOOD SPECIMENOrdering Facility: [facility] Address: [address] [place] [address] Performed By: #### 5 7021-8 ####[facility] LABCLIA [id number] [place] [address] Platelet mean volume (Bld) [Entitic vol] 10.0 fL Normal 9.0-12.7 [facility] Comment on above: Order Comment: Speci men Type: BLOOD SPECIMENOrdering Facility: [facility] Address: [address] [place] [address] Performed By: #### 5 7021-8 ####[facility] LABCLIA [id number] [place] [address] Platelets (Bld) [#/Vol] 195 10*3/uL Normal 150-400 [facility] Comment on above: Order Comment: Speci men Type: BLOOD SPECIMENOrdering Facility: [facility] Address: [address] [place] [address] Performed By: #### 5 7021-8 ####[facility] LABCLIA [id number] [place] [address] RBC (Bld) [#/Vol] 3.87 10*6/uL Low 4.20-6.00 [facility] Comment on above: Order Comment: Speci men Type: BLOOD SPECIMENOrdering Facility: [facility] Address: [address] [place] [address] Performed By: #### 5 7021-8 ####[facility] LABCLIA [id number] [place] [address] WBC (Bld) [#/Vol] 6.80 10*3/uL Normal 3.70-11.00 [facility] Comment on above: Order Comment: Speci men Type: BLOOD SPECIMENOrdering Facility: [facility] Address: [address] [place] [address] Performed By: #### 5 7021-8 ####[facility] LABCLIA [id number] [place] [address] PSA SerPl-mCncon 04-24-2023 Prostate specific Ag [Mass/Vol] 0.12 ng/mL Normal <2.60 [facility] Comment on above: Order Comment: Speci men Type: BLOOD SPECIMENOrdering Facility: [facility] Address: [address] [place] [address] Result Comment: Tota l PSA test methodology used is the Electrochemiluminescence Immunoassay by [employer]. Total PSA values by differing methodologies cannot be interchanged. Performed By: #### 2 857-1 ####[facility] LABCLIA [id number] [address] OF [facility] RAD - MISCon 04-24-2023 RAD - MISC [id number]#[id number] Normal [facility] Testost SerPl-mCncon 023 Testosterone [Mass/Vol] 49 ng/dL Low 193-824 [facility] Comment on above: Order Comment: Speci men Type: BLOOD SPECIMENOrdering Facility: [facility] Address: [address] [place] [address] Result Comment: A te stosterone level in the 193-320 ng/dL range with associated clinical symptoms is considered low and may indicate hypogonadism (from NEJM 2010 363:123-135). Results >320 ng/dL are considered normal. Result rechecked. Performed By: #### 2 986-8 ####[facility] LABIA [id number] [address] OF [place] Ambulatory Visit Summaryon 1 Ambulatory Visit Summary PABLO FLEIX :1945 Visit Date:04/17/2023 Ambulatory Visit Instructions Your Diagnosis Rising PSA following treatment for malignant neoplasm of prostate History of prostate cancer Microscopic hematuria History of kidney stones Tests Performed Urnls Dip Stick Auto w/o Microscopy POC 77478 XR Abdomen 1 View -- Results Pending -- Please visit your patient portal for your results or contact your primary care physician. Your Care Team Attending Physician - KAEL JAMESAnthoyn Primary Care Physician - JAMAR FALL DO [...] Follow-Up Appointments Monday 8:45 AM EDT With: Anthony SCRUGGS MD Where: [facility] Patient Educationon 04-17-20 Patient Education Oncology Prostate [...] under a microscope. This is called the Groom score and the total score can range from 6?10, indicating how likely it is that the cancer will spread (metastasize) to other parts of the body. The higher the score, the greater the likelihood that the cancer will spread. ? Groom 6 or lower: This indicates that the [...] external be (more content not included)... Normal [facility] Office/Clinic Noteon 04-17-2023 Urology Office/Clinic Note Chief Complaint rising PSA after treatment for malignant neoplasm of prostate HPI Staff Pt is here for 6 month f/u with PSA. Previous dx of rising PSA after treatment for malignant neoplasm of prostate, prostate cancer (Prostatectomy 2014 and EBRT 2018) and microhematuria. Current PSA done 04/12/23 is [...] URL [facility] [address], [place] [address] [phone] Additional Instructions: 6 mos w/ PSA (and [...] year, 02/04/2019 T (more content not included)... Normal [facility] Comment on above: Result Comment: Elec tronically Signed By: Anthony SCRUGGS MD\.br\Date and Time Signed: 04/17/23 09:28 EDT\.br\Electronically Co-Signed By: Jeanine Crandall\.br\Date and Time Co-Signed: 04/17/23 09:25 EDT Lab Reportson 04-12-2023 Lab Reports [id number]#1.00CD:127 [facility] CNPNon 02-06-2023 CNPN Telephone (RADTSA) PABLO FELIX ([id number]) 1945 M Date Time Provider Department 02/06/23 [...] have it done at our office. Josie Mehta RN 02/06/2023 10:26 AM Signed Left detailed [...] 24 hr tablet Take by mouth. - Histiiquwxtbk-Urrqbfgf-Trbo in (MULTIVITAMIN 50 PLUS) tab Take 1 [...] Status:Closed by JOSIE MEHTA on 02/06/23 Normal [facility] Consultation Noteon 02-07-20 Consultation Note [id number]#[id number]:127 Normal [facility] CBC W Auto Differential pane l (Bld)on 02-02-2023 Basophils (Bld) [#/Vol] 0.03 10*3/uL Normal <0.11 [facility] Comment on above: Order Comment: Speci men Type: BLOOD SPECIMENOrdering Facility: [facility] Address: [address] [place] [address] Performed By: #### 5 7021-8 ####[facility] LABCLIA [id number] [place] [address] Basophils/100 WBC (Bld) 0.4 % Normal [facility] Comment on above: Order Comment: Speci men Type: BLOOD SPECIMENOrdering Facility: [facility] Address: [address] [place] [address] Performed By: #### 5 7021-8 ####[facility] LABCLIA [id number] [place] [address] Differential cell count method Nom (Bld) Auto Normal [facility] Comment on above: Order Comment: Speci men Type: BLOOD SPECIMENOrdering Facility: [facility] Address: [address] [place] [address] Performed By: #### 5 7021-8 ####[facility] LABCLIA [id number] [place] [address] Eosinophils (Bld) [#/Vol] 0.42 10*3/uL Normal <0.46 [facility] Comment on above: Order Comment: Speci men Type: BLOOD SPECIMENOrdering Facility: [facility] Address: [address] [place] [address] Performed By: #### 5 7021-8 ####[facility] LABCLIA [id number] [place] [address] Eosinophils/100 WBC (Bld) 5.8 % Normal [facility] Comment on above: Order Comment: Speci men Type: BLOOD SPECIMENOrdering Facility: [facility] Address: [address] [place] [address] Performed By: #### 5 7021-8 ####[facility] LABCLIA [id number] [place] [address] Erythrocyte distribution width (RBC) [Ratio] 12.9 % Normal 11.5-15.0 [facility] Comment on above: Order Comment: Speci men Type: BLOOD SPECIMENOrdering Facility: [facility] Address: [address] [place] [address] Performed By: #### 5 7021-8 ####[facility] LABCLIA [id number] [place] [address] Hematocrit (Bld) [Volume fraction] 35.5 % Low 39.0-51.0 [facility] Comment on above: Order Comment: Speci men Type: BLOOD SPECIMENOrdering Facility: [facility] Address: [address] [place] [address] Performed By: #### 5 7021-8 ####[facility] LABCLIA [id number] [place] [address] Hemoglobin (Bld) [Mass/Vol] 12.0 g/dL Low 13.0-17.0 [facility] Comment on above: Order Comment: Speci men Type: BLOOD SPECIMENOrdering Facility: [facility] Address: [address] [place] [address] Performed By: #### 5 7021-8 ####[facility] LABCLIA [id number] [place] [address] Immature granulocytes (Bld) [#/Vol] 0.05 10*3/uL Normal <0.10 [facility] Comment on above: Order Comment: Speci men Type: BLOOD SPECIMENOrdering Facility: [facility] Address: [address] [place] [address] Performed By: #### 5 7021-8 ####[facility] LABIA [id number] [place] [address] Immature granulocytes/100 WBC (Bld) 0.7 % Normal [facility] Comment on above: Order Comment: Speci men Type: BLOOD SPECIMENOrdering Facility: [facility] Address: [address] [place] [place] [address] Performed By: #### 5 7021-8 ####[facility] LABIA [id number] [place] [address] Lymphocytes (Bld) [#/Vol] 2.11 10*3/uL Normal 1.00-4.00 [facility] Comment on above: Order Comment: Speci men Type: BLOOD SPECIMENOrdering Facility: [facility] Address: [address] [place] [address] Performed By: #### 5 7021-8 ####[facility] LABCLIA [id number] [place] [address] Lymphocytes/100 WBC (Bld) 29.0 % Normal [facility] Comment on above: Order Comment: Speci men Type: BLOOD SPECIMENOrdering Facility: [facility] Address: [address] [place] [address] Performed By: #### 5 7021-8 ####[facility] LABCLIA [id number] [place] [address] MCH (RBC) [Entitic mass] 32.3 pg Normal 26.0-34.0 [facility] Comment on above: Order Comment: Speci men Type: BLOOD SPECIMENOrdering Facility: [facility] Address: [address] [place] [address] Performed By: #### 5 7021-8 ####[facility] LABIA [id number] [place] [address] MCHC (RBC) [Mass/Vol] 33.8 g/dL Normal 30.5-36.0 [facility] Comment on above: Order Comment: Speci men Type: BLOOD SPECIMENOrdering Facility: [facility] Address: [address] [place] [address] Performed By: #### 5 7021-8 ####[facility] LABIA [id number] [place] [address] MCV (RBC) [Entitic vol] 95.4 fL Normal 80.0-100.0 [facility] Comment on above: Order Comment: Speci men Type: BLOOD SPECIMENOrdering Facility: [facility] Address: [address] [place] [address] Performed By: #### 5 7021-8 ####[facility] LABIA [id number] [place] [address] Monocytes (Bld) [#/Vol] 0.66 10*3/uL Normal <0.87 [facility] Comment on above: Order Comment: Speci men Type: BLOOD SPECIMENOrdering Facility: [facility] Address: [address] [place] [place] [address] Performed By: #### 5 7021-8 ####[facility] LABCLIA [id number] [place] [address] Monocytes/100 WBC (Bld) 9.1 % Normal [facility] Comment on above: Order Comment: Speci men Type: BLOOD SPECIMENOrdering Facility: [facility] Address: [address] [place] [place] [address] Performed By: #### 5 7021-8 ####[facility] LABCLIA [id number] [place] [address] Neutrophils (Bld) [#/Vol] 4.00 10*3/uL Normal 1.45-7.50 [facility] Comment on above: Order Comment: Speci men Type: BLOOD SPECIMENOrdering Facility: [facility] Address: [address] [place] [address] Performed By: #### 5 7021-8 ####[facility] LABCLIA [id number] [place] [address] Neutrophils/100 WBC (Bld) 55.0 % Normal [facility] Comment on above: Order Comment: Speci men Type: BLOOD SPECIMENOrdering Facility: [facility] Address: [address] [place] [place] [address] Performed By: #### 5 7021-8 ####[facility] LABCLIA [id number] [place] [address] Nucleated RBC (Bld) [#/Vol] 10*3/uL Normal <0.01 [facility] Comment on above: Order Comment: Speci men Type: BLOOD SPECIMENOrdering Facility: [facility] Address: [address] [place] [address] Performed By: #### 5 7021-8 ####[facility] LABCLIA [id number] [place] [address] Nucleated RBC/100 WBC (Bld) [Ratio] 0.0 /100 WBC Normal [facility] Comment on above: Order Comment: Speci men Type: BLOOD SPECIMENOrdering Facility: [facility] Address: [address] [place] [address] Performed By: #### 5 7021-8 ####[facility] LABIA [id number] [place] [address] Platelet mean volume (Bld) [Entitic vol] 10.1 fL Normal 9.0-12.7 [facility] Comment on above: Order Comment: Speci men Type: BLOOD SPECIMENOrdering Facility: [facility] Address: [address] [place] [address] Performed By: #### 5 7021-8 ####[facility] LABIA [id number] [place] [address] Platelets (Bld) [#/Vol] 197 10*3/uL Normal 150-400 [facility] Comment on above: Order Comment: Speci men Type: BLOOD SPECIMENOrdering Facility: [facility] Address: [address] [place] [address] Performed By: #### 5 7021-8 ####[facility] LABIA [id number] [place] [address] RBC (Bld) [#/Vol] 3.72 10*6/uL Low 4.20-6.00 [facility] Comment on above: Order Comment: Speci men Type: BLOOD SPECIMENOrdering Facility: [facility] Address: [address] [place] [address] Performed By: #### 5 7021-8 ####[facility] LABIA [id number] [place] [address] WBC (Bld) [#/Vol] 7.27 10*3/uL Normal 3.70-11.00 [facility] Comment on above: Order Comment: Speci men Type: BLOOD SPECIMENOrdering Facility: [facility] Address: [place] [address] Performed By: #### 5 7021-8 ####[facility] LABIA [id number] [place] [address] CNOVSPon 02-02-2023 CNOVSP Visit (SP) Office (H EMASA) ELVIRAPABLO Lopez ([id number]) 1945 M Date Time Provider Department 02/02/23 [...] OTHER PHYSICIANS: Dr. Anthony Scruggs, Dr. Khan, [facility] Cardiology Portions of this encounter note have [...] mg 24 hr tablet Take by mouth. 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 Left base margin positive for neoplasm. Seminal vesicles with no diagnostic abnormality. (more content not included)... Normal [facility] Comprehensive metabolic 2000 panelon 02-02-2023 Albumin [Mass/Vol] 4.3 g/dL Normal 3.9-4.9 [facility] Comment on above: Order Comment: Speci men Type: BLOOD SPECIMENOrdering Facility: [facility] Address: [address] [address] Performed By: #### 2 4323-8 ####[facility] [facility] [id number] [place] [address] ALP [Catalytic activity/Vol] 69 U/L Normal 38-113 [facility] Comment on above: Order Comment: Speci men Type: BLOOD SPECIMENOrdering Facility: [facility] Address: [address] [address] Performed By: #### 2 4323-8 ####[facility] LABCLIA [id number] [place] [address] ALT [Catalytic activity/Vol] 18 U/L Normal 10-54 [facility] Comment on above: Order Comment: Speci men Type: BLOOD SPECIMENOrdering Facility: [facility] Address: [address] [place] [address] Performed By: #### 2 4323-8 ####[facility] LABCLIA [id number] [place] [address] Anion gap [Moles/Vol] 8 mmol/L Low 9-18 [facility] Comment on above: Order Comment: Speci men Type: BLOOD SPECIMENOrdering Facility: [facility] Address: [address] [address] Performed By: #### 2 4323-8 ####[facility] LABCLIA [id number] [place] [address] AST [Catalytic activity/Vol] 18 U/L Normal 14-40 [facility] Comment on above: Order Comment: Speci men Type: BLOOD SPECIMENOrdering Facility: [facility] Address: [address] [place] [address] Performed By: #### 2 4323-8 ####[facility] LABCLIA [id number] [place] [address] Bilirubin [Mass/Vol] 0.7 mg/dL Normal 0.2-1.3 [facility] Comment on above: Order Comment: Speci men Type: BLOOD SPECIMENOrdering Facility: [facility] Address: [address] [place] [address] Performed By: #### 2 4323-8 ####[facility] LABCLIA [id number] [place] [address] Calcium [Mass/Vol] 9.8 mg/dL Normal 8.5-10.2 [facility] Comment on above: Order Comment: Speci men Type: BLOOD SPECIMENOrdering Facility: [facility] Address: [address] [place] [address] Performed By: #### 2 4323-8 ####[facility] LABCLIA [id number] [place] [address] Chloride [Moles/Vol] 102 mmol/L Normal 97-105 [facility] Comment on above: Order Comment: Speci men Type: BLOOD SPECIMENOrdering Facility: [facility] Address: [address] [place] [address] Performed By: #### 2 4323-8 ####[facility] LABCLIA [id number] [place] [address] CO2 [Moles/Vol] 27 mmol/L Normal 22-30 [facility] Comment on above: Order Comment: Speci men Type: BLOOD SPECIMENOrdering Facility: [facility] Address: [address] [place] [address] Performed By: #### 2 4323-8 ####[facility] LABCLIA [id number] [place] [address] Creatinine [Mass/Vol] 0.84 mg/dL Normal 0.73-1.22 [facility] Comment on above: Order Comment: Speci men Type: BLOOD SPECIMENOrdering Facility: [facility] Address: [address] [place] [address] Performed By: #### 2 4323-8 ####[facility] LABCLIA [id number] [place] [address] ESTIMATED GLOMERULAR FILTRATION RATE 90 mL/min/1.73m??? Normal >=60 [facility] Comment on above: Order Comment: Speci men Type: BLOOD SPECIMENOrdering Facility: [facility] Address: [address] [place] [address] Result Comment: Renae mated Glomerular Filtration Rate [...] actual GFR. Performed By: #### 2 4323-8 ####[facility] LABCLIA [id number] [place] [address] Glucose [Mass/Vol] 119 mg/dL High 74-99 [facility] Comment on above: Order Comment: Speci men Type: BLOOD SPECIMENOrdering Facility: [facility] Address: [address] [place] [address] Result Comment: The [place] Diabetes [employer] (ADA) provides guidance for cutoff [...] Standards of Medical Care in Diabetes 2016, [place] [employer]. Diabetes Care. 2016.39(Suppl 1). Performed By: #### 2 4323-8 ####[facility] LABCLIA [id number] [place] [address] Potassium [Moles/Vol] 4.5 mmol/L Normal 3.7-5.1 [facility] Comment on above: Order Comment: Speci men Type: BLOOD SPECIMENOrdering Facility: [facility] Address: [address] [place] [address] Performed By: #### 2 4323-8 ####[facility] LABCLIA [id number] [place] [address] Protein [Mass/Vol] 6.7 g/dL Normal 6.3-8.0 [facility] Comment on above: Order Comment: Speci men Type: BLOOD SPECIMENOrdering Facility: [facility] Address: [address] [place] [address] Performed By: #### 2 4323-8 ####[facility] LABCLIA [id number] [place] [address] Sodium [Moles/Vol] 137 mmol/L Normal 136-144 [facility] Comment on above: Order Comment: Speci men Type: BLOOD SPECIMENOrdering Facility: [facility] Address: [address] [address] Performed By: #### 2 4323-8 ####[facility] LABCLIA [id number] [place] [address] Urea nitrogen [Mass/Vol] 16 mg/dL Normal 9-24 [facility] Comment on above: Order Comment: Speci men Type: BLOOD SPECIMENOrdering Facility: [facility] Address: [address] [address] Performed By: #### 2 4323-8 ####[facility] LABIA [id number] [place] [address] PSA [facility] 02-02-2023 Prostate specific Ag [Mass/Vol] 0.09 ng/mL Normal <2.60 [facility] Comment on above: Order Comment: Speci men Type: BLOOD SPECIMENOrdering Facility: [facility] Address: [address] [place] [address] Result Comment: Tota l PSA test methodology used is the Electrochemiluminescence Immunoassay by [employer]. Total PSA values by differing methodologies cannot be interchanged. Performed By: #### 2 857-1 ####[facility] LABCLIA [id number] [facility] [place] [id number] [address] [place] CBC W Auto Differential pane l (Bld)on 11-10-2022 Basophils (Bld) [#/Vol] 0.03 10*3/uL Normal <0.11 [facility] Comment on above: Order Comment: Speci men Type: BLOOD SPECIMENOrdering Facility: [facility] Address: [address] [place] [address] Performed By: #### 5 7021-8 ####[facility] LABIA [id number] [place] [address] Basophils/100 WBC (Bld) 0.4 % Normal [facility] Comment on above: Order Comment: Speci men Type: BLOOD SPECIMENOrdering Facility: [facility] Address: [address] [place] [address] Performed By: #### 5 7021-8 ####[facility] LABCLIA [id number] [place] [address] Differential cell count method Nom (Bld) Auto Normal [facility] Comment on above: Order Comment: Speci men Type: BLOOD SPECIMENOrdering Facility: [facility] Address: [address] [place] [address] Performed By: #### 5 7021-8 ####[facility] LABCLIA [id number] [place] [address] Eosinophils (Bld) [#/Vol] 0.36 10*3/uL Normal <0.46 [facility] Comment on above: Order Comment: Speci men Type: BLOOD SPECIMENOrdering Facility: [facility] Address: [address] [address] Performed By: #### 5 7021-8 ####[facility] LABCLIA [id number] [place] [address] Eosinophils/100 WBC (Bld) 4.7 % Normal [facility] Comment on above: Order Comment: Speci men Type: BLOOD SPECIMENOrdering Facility: [facility] Address: [address] [place] [address] Performed By: #### 5 7021-8 ####[facility] LABCLIA [id number] [place] [address] Erythrocyte distribution width (RBC) [Ratio] 13.3 % Normal 11.5-15.0 [facility] Comment on above: Order Comment: Speci men Type: BLOOD SPECIMENOrdering Facility: [facility] Address: [address] [place] [address] Performed By: #### 5 7021-8 ####[facility] LABCLIA [id number] [place] [address] Hematocrit (Bld) [Volume fraction] 36.4 % Low 39.0-51.0 [facility] Comment on above: Order Comment: Speci men Type: BLOOD SPECIMENOrdering Facility: [facility] Address: [address] [place] [address] Performed By: #### 5 7021-8 ####[facility] LABCLIA [id number] [place] [address] Hemoglobin (Bld) [Mass/Vol] 12.3 g/dL Low 13.0-17.0 [facility] Comment on above: Order Comment: Speci men Type: BLOOD SPECIMENOrdering Facility: [facility] Address: [address] [place] [address] Performed By: #### 5 7021-8 ####[facility] LABCLIA [id number] [place] [address] Immature granulocytes (Bld) [#/Vol] 0.05 10*3/uL Normal <0.10 [facility] Comment on above: Order Comment: Speci men Type: BLOOD SPECIMENOrdering Facility: [facility] Address: [address] [place] [address] Performed By: #### 5 7021-8 ####[facility] LABCLIA [id number] [place] [address] Immature granulocytes/100 WBC (Bld) 0.6 % Normal [facility] Comment on above: Order Comment: Speci men Type: BLOOD SPECIMENOrdering Facility: [facility] Address: [address] [place] [address] Performed By: #### 5 7021-8 ####[facility] LABCLIA [id number] [place] [address] Lymphocytes (Bld) [#/Vol] 1.99 10*3/uL Normal 1.00-4.00 [facility] Comment on above: Order Comment: Speci men Type: BLOOD SPECIMENOrdering Facility: [facility] Address: [address] [place] [address] Performed By: #### 5 7021-8 ####[facility] LABCLIA [id number] [place] [address] Lymphocytes/100 WBC (Bld) 25.7 % Normal [facility] Comment on above: Order Comment: Speci men Type: BLOOD SPECIMENOrdering Facility: [facility] Address: [address] [place] [address] Performed By: #### 5 7021-8 ####[facility] LABCLIA [id number] [place] [address] MCH (RBC) [Entitic mass] 31.9 pg Normal 26.0-34.0 [facility] Comment on above: Order Comment: Speci men Type: BLOOD SPECIMENOrdering Facility: [facility] Address: [address] [place] [address] Performed By: #### 5 7021-8 ####[facility] LABCLIA [id number] [place] [address] MCHC (RBC) [Mass/Vol] 33.8 g/dL Normal 30.5-36.0 [facility] Comment on above: Order Comment: Speci men Type: BLOOD SPECIMENOrdering Facility: [facility] Address: [address] [place] [address] Performed By: #### 5 7021-8 ####[facility] LABCLIA [id number] [place] [address] MCV (RBC) [Entitic vol] 94.5 fL Normal 80.0-100.0 [facility] Comment on above: Order Comment: Speci men Type: BLOOD SPECIMENOrdering Facility: [facility] Address: [address] [place] [address] Performed By: #### 5 7021-8 ####[facility] LABCLIA [id number] [place] [address] Monocytes (Bld) [#/Vol] 0.63 10*3/uL Normal <0.87 [facility] Comment on above: Order Comment: Speci men Type: BLOOD SPECIMENOrdering Facility: [facility] Address: [address] [address] Performed By: #### 5 7021-8 ####[facility] LABCLIA [id number] [place] [address] Monocytes/100 WBC (Bld) 8.2 % Normal [facility] Comment on above: Order Comment: Speci men Type: BLOOD SPECIMENOrdering Facility: [facility] Address: [address] [place] [address] Performed By: #### 5 7021-8 ####[facility] LABCLIA [id number] [place] [address] Neutrophils (Bld) [#/Vol] 4.67 10*3/uL Normal 1.45-7.50 [facility] Comment on above: Order Comment: Speci men Type: BLOOD SPECIMENOrdering Facility: [facility] Address: [address] [place] [address] Performed By: #### 5 7021-8 ####[facility] LABCLIA [id number] [place] [address] Neutrophils/100 WBC (Bld) 60.4 % Normal [facility] Comment on above: Order Comment: Speci men Type: BLOOD SPECIMENOrdering Facility: [facility] Address: [address] [place] [address] Performed By: #### 5 7021-8 ####[facility] LABCLIA [id number] [place] [address] Nucleated RBC (Bld) [#/Vol] 10*3/uL Normal <0.01 [facility] Comment on above: Order Comment: Speci men Type: BLOOD SPECIMENOrdering Facility: [facility] Address: [address] [address] Performed By: #### 5 7021-8 ####[facility] LABCLIA [id number] [place] [address] Nucleated RBC/100 WBC (Bld) [Ratio] 0.0 /100 WBC Normal [facility] Comment on above: Order Comment: Speci men Type: BLOOD SPECIMENOrdering Facility: [facility] Address: [address] [place] [address] Performed By: #### 5 7021-8 ####[facility] LABCLIA [id number] [place] [address] Platelet mean volume (Bld) [Entitic vol] 9.9 fL Normal 9.0-12.7 [facility] Comment on above: Order Comment: Speci men Type: BLOOD SPECIMENOrdering Facility: [facility] Address: [address] [place] [address] Performed By: #### 5 7021-8 ####[facility] LABIA [id number] [place] [address] Platelets (Bld) [#/Vol] 206 10*3/uL Normal 150-400 [facility] Comment on above: Order Comment: Speci men Type: BLOOD SPECIMENOrdering Facility: [facility] Address: [address] [place] [address] Performed By: #### 5 7021-8 ####[facility] LABIA [id number] [place] [address] RBC (Bld) [#/Vol] 3.85 10*6/uL Low 4.20-6.00 [facility] Comment on above: Order Comment: Speci men Type: BLOOD SPECIMENOrdering Facility: [facility] Address: [address] [place] [address] Performed By: #### 5 7021-8 ####[facility] LABCLIA [id number] [place] [address] WBC (Bld) [#/Vol] 7.73 10*3/uL Normal 3.70-11.00 [facility] Comment on above: Order Comment: Speci men Type: BLOOD SPECIMENOrdering Facility: [facility] Address: [place] [address] Performed By: #### 5 7021-8 ####[facility] LABCLIA [id number] [place] [address] CNOVSPon 11-10-2022 CNOVSP Visit (SP) Office (H EMASA) PABLO FELIX ([id number]) 1945 M Date Time Provider Department 11/10/22 [...] OTHER PHYSICIANS: Dr. Anthony Scruggs, Dr. Khan, [facility] Cardiology Portions of this encounter note have been copied from Marco A Esuqeda MD note from 08/11/2022 and has been [...] mg 24 hr tablet Take by mouth. Tgmsnyrdgacru-Rotfkpfs-Cppw in (MULTIVITAMIN 50 PLUS) tab Take 1 [...] or pet (more content not included)... Normal [facility] Comprehensive metabolic 2000 panelon 11-10-2022 Albumin [Mass/Vol] 4.1 g/dL Normal 3.9-4.9 [facility] Comment on above: Order Comment: Speci men Type: BLOOD SPECIMENOrdering Facility: [facility] Address: [address] [address] Performed By: #### 2 4323-8 ####[facility] LABCLIA [id number] [place] [address] ALP [Catalytic activity/Vol] 72 U/L Normal 38-113 [facility] Comment on above: Order Comment: Speci men Type: BLOOD SPECIMENOrdering Facility: [facility] Address: [address] [address] Performed By: #### 2 4323-8 ####[facility] LABCLIA [id number] [place] [address] ALT [Catalytic activity/Vol] 20 U/L Normal 10-54 [facility] Comment on above: Order Comment: Speci men Type: BLOOD SPECIMENOrdering Facility: [facility] Address: [address] [place] [address] Performed By: #### 2 4323-8 ####[facility] LABCLIA [id number] [place] [address] Anion gap [Moles/Vol] 7 mmol/L Low 9-18 [facility] Comment on above: Order Comment: Speci men Type: BLOOD SPECIMENOrdering Facility: [facility] Address: [address] [place] [address] Performed By: #### 2 4323-8 ####[facility] LABCLIA [id number] [place] [address] AST [Catalytic activity/Vol] 18 U/L Normal 14-40 [facility] Comment on above: Order Comment: Speci men Type: BLOOD SPECIMENOrdering Facility: [facility] Address: [address] [place] [address] Performed By: #### 2 4323-8 ####[facility] LABCLIA [id number] [place] [address] Bilirubin [Mass/Vol] 0.5 mg/dL Normal 0.2-1.3 [facility] Comment on above: Order Comment: Speci men Type: BLOOD SPECIMENOrdering Facility: [facility] Address: [address] [place] [address] Performed By: #### 2 4323-8 ####[facility] LABCLIA [id number] [place] [address] Calcium [Mass/Vol] 9.5 mg/dL Normal 8.5-10.2 [facility] Comment on above: Order Comment: Speci men Type: BLOOD SPECIMENOrdering Facility: [facility] Address: [address] [place] [address] Performed By: #### 2 4323-8 ####[facility] LABCLIA [id number] [place] [address] Chloride [Moles/Vol] 101 mmol/L Normal 97-105 [facility] Comment on above: Order Comment: Speci men Type: BLOOD SPECIMENOrdering Facility: [facility] Address: [address] [place] [address] Performed By: #### 2 4323-8 ####[facility] LABCLIA [id number] [place] [address] CO2 [Moles/Vol] 28 mmol/L Normal 22-30 [facility] Comment on above: Order Comment: Speci men Type: BLOOD SPECIMENOrdering Facility: [facility] Address: [address] [place] [address] Performed By: #### 2 4323-8 ####[facility] LABCLIA [id number] [place] [address] Creatinine [Mass/Vol] 0.85 mg/dL Normal 0.73-1.22 [facility] Comment on above: Order Comment: Speci men Type: BLOOD SPECIMENOrdering Facility: [facility] Address: [address] [place] [address] Performed By: #### 2 4323-8 ####[facility] LABCLIA [id number] [place] [address] ESTIMATED GLOMERULAR FILTRATION RATE 90 mL/min/1.73m??? Normal >=60 [facility] Comment on above: Order Comment: Speci men Type: BLOOD SPECIMENOrdering Facility: [facility] Address: [address] [place] [address] Result Comment: Renae mated Glomerular Filtration Rate [...] actual GFR. Performed By: #### 2 4323-8 ####[facility] LABCLIA [id number] [place] [address] Glucose [Mass/Vol] 121 mg/dL High 74-99 [facility] Comment on above: Order Comment: Speci men Type: BLOOD SPECIMENOrdering Facility: [facility] Address: [address] [place] [address] Result Comment: The [place] Diabetes [employer] (ADA) provides guidance for cutoff [...] Standards of Medical Care in Diabetes 2016, [place] [employer]. Diabetes Care. 2016.39(Suppl 1). Performed By: #### 2 4323-8 ####[facility] LABCLIA [id number] [place] [address] Potassium [Moles/Vol] 4.8 mmol/L Normal 3.7-5.1 [facility] Comment on above: Order Comment: Speci men Type: BLOOD SPECIMENOrdering Facility: [facility] Address: [address] [place] [address] Performed By: #### 2 4323-8 ####[facility] LABCLIA [id number] [place] [address] Protein [Mass/Vol] 6.5 g/dL Normal 6.3-8.0 [facility] Comment on above: Order Comment: Speci men Type: BLOOD SPECIMENOrdering Facility: [facility] Address: [address] [address] Performed By: #### 2 4323-8 ####[facility] LABCLIA [id number] [place] [address] Sodium [Moles/Vol] 136 mmol/L Normal 136-144 [facility] Comment on above: Order Comment: Speci men Type: BLOOD SPECIMENOrdering Facility: [facility] Address: [address] [address] Performed By: #### 2 4323-8 ####[facility] LABCLIA [id number] [place] [address] Urea nitrogen [Mass/Vol] 14 mg/dL Normal 9-24 [facility] Comment on above: Order Comment: Speci men Type: BLOOD SPECIMENOrdering Facility: [facility] Address: [address] [address] Performed By: #### 2 4323-8 ####[facility] LABCLIA [id number] [place] [address] Consultation Noteon 11-11-19 23 Consultation Note [id number]#[id number]:127 Normal [facility] PSA SerPl-mCncon 11-10-2022 Prostate specific Ag [Mass/Vol] 0.10 ng/mL Normal <2.60 [facility] Comment on above: Order Comment: Speci men Type: BLOOD SPECIMENOrdering Facility: [facility] Address: [address] [address] Result Comment: Tota l PSA test methodology used is the Electrochemiluminescence Immunoassay by [employer]. Total PSA values by differing methodologies cannot be interchanged. Performed By: #### 2 857-1 ####[facility] LABCLIA [id number] [place] [address] [place] CNPJu 11-01-2022 CNPN Telephone ([email or web address]) ELVIRAPABLO ([id number]) 1945 M Date Time Provider Department 11/01/22 CHRISTO HOWARD During your visit today, we recorded the following information about you: Sheela Toney 11/01/2022 10:50 AM Addendum Patient coming in [...] [C61] Order(s):CBC + DIFF [SQCBCDIF] Order #: [id number] FUTURE COMP METABOLIC PANEL [SQCMP] Order #: [id number] FUTURE PSA/PROSTSPECAG DIAG [SQPSA] Order #: [id number] FUTURE Prescriptions as of 11/01/2022 - Calcium Citrate-Vitamin D3 200 mg-6.25 mcg (250 unit) tab Take 2 tablets by mouth once daily. - metoprolol succinate ER (TOPROL XL) 25 mg 24 hr tablet Take by mouth. - Lmpokgyhixdet-Ezpzvpaz-Aazu in (MULTIVITAMIN 50 PLUS) tab Take 1 [...] MARCO A ESQUEDA on 11/01/22 [facility] Lab Reportson 10-31-2022 Lab Reports [id number]#[id number]:127 [facility] Ambulatory Visit Summaryon 0 10-28-2022 Ambulatory Visit Summary PABLO FELIX :1945 Visit Date:12/24/2018 Ambulatory Visit Instructions Your Care Team Primary Care Physician - JUAN DAVID SEGUNDO JAMAR This Is Your Medications List aspirin [...] Lee Where: [facility] Patient Educationon 10-29-19 Patient Education Oncology Prostate Cancer Screening The [...] of these risk factors: ? Being of -[place] descent. ? Having a family history of [...] Are older than age 55. ? Are -Beninese. ? Have a father, brother, or uncle [...] 04/13/2018 Document R (more content not included)... [facility] Urology Office/Clinic Noteon 10-28-2022 Urology Office/Clinic Note [...] Follow-up With When Contact Information KAEL JAMES, COLT Geiger In 6 months [facility] [address], [place] [phone] Additional Instructions: f/u 6 month with PSA, [...] Ad26 vaccine (more content not included)... Normal [facility] Comment on above: Result Comment: Elec tronically Signed By: Anthony SCRUGGS MD\.br\Date and Time Signed: 10/28/22 08:39 EDT\.br\Electronically Co-Signed By: Isamar Vale\.br\Date and Time Co-Signed: 10/28/22 08:37 EDT GLYCOHEMOGLOBIN A1Con 2022 ADA RECOMMENDATION SEE BELOW Normal [facility] Comment on above: Result Comment: ADA RECOMMENDED LIMIT 4.0 - 6.0 ADA THERAPEUTIC TARGET < 7.0 ACTION SUGGESTED > 7.0 Performed By: #### D ATA1C #### [facility] [address] [address] [address] Bharati Aguiar Glucose [Mass/Vol] 131 mg/dL Normal [facility] Comment on above: Performed By: #### D ATA1C #### [facility] [address] [address] [address] Bharati Aguiar HbA1c (Bld) [Mass fraction] 6.2 % Normal 4.5-6.2 [facility] Comment on above: Performed By: #### D ATA1C #### [facility] [address] [address] [address] Bharati Aguiar Consultation Noteon 01-27-20 23 Consultation Note [id number]:127 Normal [facility] CBC W Auto Differential pane l (Bld)on 08-11-2022 Basophils (Bld) [#/Vol] 0.03 10*3/uL Normal <0.11 [facility] Comment on above: Order Comment: Speci men Type: BLOOD SPECIMENOrdering Facility: [facility] Address: [address] [place] [address] Performed By: #### 5 7021-8 ####[facility] LABCLIA [id number] [place] [address] Basophils/100 WBC (Bld) 0.4 % Normal [facility] Comment on above: Order Comment: Speci men Type: BLOOD SPECIMENOrdering Facility: [facility] Address: [address] [place] [address] Performed By: #### 5 7021-8 ####[facility] LABCLIA [id number] [place] [address] Differential cell count method Nom (Bld) Auto Normal [facility] Comment on above: Order Comment: Speci men Type: BLOOD SPECIMENOrdering Facility: [facility] Address: [address] [place] [address] Performed By: #### 5 7021-8 ####[facility] LABCLIA [id number] [place] [address] Eosinophils (Bld) [#/Vol] 0.36 10*3/uL Normal <0.46 [facility] Comment on above: Order Comment: Speci men Type: BLOOD SPECIMENOrdering Facility: [facility] Address: [address] [place] [address] Performed By: #### 5 7021-8 ####[facility] LABCLIA [id number] [place] [address] Eosinophils/100 WBC (Bld) 4.6 % Normal [facility] Comment on above: Order Comment: Speci men Type: BLOOD SPECIMENOrdering Facility: [facility] Address: [address] [address] Performed By: #### 5 7021-8 ####[facility] LABCLIA [id number] [place] [address] Erythrocyte distribution width (RBC) [Ratio] 12.6 % Normal 11.5-15.0 [facility] Comment on above: Order Comment: Speci men Type: BLOOD SPECIMENOrdering Facility: [facility] Address: [address] [address] Performed By: #### 5 7021-8 ####[facility] LABCLIA [id number] [place] [address] Hematocrit (Bld) [Volume fraction] 35.6 % Low 39.0-51.0 [facility] Comment on above: Order Comment: Speci men Type: BLOOD SPECIMENOrdering Facility: [facility] Address: [address] [place] [address] Performed By: #### 5 7021-8 ####[facility] LABIA [id number] [place] [address] Hemoglobin (Bld) [Mass/Vol] 11.9 g/dL Low 13.0-17.0 [facility] Comment on above: Order Comment: Speci men Type: BLOOD SPECIMENOrdering Facility: [facility] Address: [address] [place] [address] Performed By: #### 5 7021-8 ####[facility] LABIA [id number] [place] [address] Immature granulocytes (Bld) [#/Vol] 0.05 10*3/uL Normal <0.10 [facility] Comment on above: Order Comment: Speci men Type: BLOOD SPECIMENOrdering Facility: [facility] Address: [address] [place] [address] Performed By: #### 5 7021-8 ####[facility] LABCLIA [id number] [place] [address] Immature granulocytes/100 WBC (Bld) 0.6 % Normal [facility] Comment on above: Order Comment: Speci men Type: BLOOD SPECIMENOrdering Facility: [facility] Address: [address] [place] [address] Performed By: #### 5 7021-8 ####[facility] LABCLIA [id number] [place] [address] Lymphocytes (Bld) [#/Vol] 2.57 10*3/uL Normal 1.00-4.00 [facility] Comment on above: Order Comment: Speci men Type: BLOOD SPECIMENOrdering Facility: [facility] Address: [address] [place] [address] Performed By: #### 5 7021-8 ####[facility] LABCLIA [id number] [place] [address] Lymphocytes/100 WBC (Bld) 32.7 % Normal [facility] Comment on above: Order Comment: Speci men Type: BLOOD SPECIMENOrdering Facility: [facility] Address: [address] [place] [address] Performed By: #### 5 7021-8 ####[facility] LABCLIA [id number] [place] [address] MCH (RBC) [Entitic mass] 31.6 pg Normal 26.0-34.0 [facility] Comment on above: Order Comment: Speci men Type: BLOOD SPECIMENOrdering Facility: [facility] Address: [address] [place] [address] Performed By: #### 5 7021-8 ####[facility] LABCLIA [id number] [place] [address] MCHC (RBC) [Mass/Vol] 33.4 g/dL Normal 30.5-36.0 [facility] Comment on above: Order Comment: Speci men Type: BLOOD SPECIMENOrdering Facility: [facility] Address: [address] [address] Performed By: #### 5 7021-8 ####[facility] LABCLIA [id number] [place] [address] MCV (RBC) [Entitic vol] 94.4 fL Normal 80.0-100.0 [facility] Comment on above: Order Comment: Speci men Type: BLOOD SPECIMENOrdering Facility: [facility] Address: [address] [place] [address] Performed By: #### 5 7021-8 ####[facility] LABIA [id number] [place] [address] Monocytes (Bld) [#/Vol] 0.72 10*3/uL Normal <0.87 [facility] Comment on above: Order Comment: Speci men Type: BLOOD SPECIMENOrdering Facility: [facility] Address: [address] [place] [address] Performed By: #### 5 7021-8 ####[facility] LABIA [id number] [place] [address] Monocytes/100 WBC (Bld) 9.2 % Normal [facility] Comment on above: Order Comment: Speci men Type: BLOOD SPECIMENOrdering Facility: [facility] Address: [address] [place] [address] Performed By: #### 5 7021-8 ####[facility] LABCLIA [id number] [place] [address] Neutrophils (Bld) [#/Vol] 4.13 10*3/uL Normal 1.45-7.50 [facility] Comment on above: Order Comment: Speci men Type: BLOOD SPECIMENOrdering Facility: [facility] Address: [address] [place] [address] Performed By: #### 5 7021-8 ####[facility] LABCLIA [id number] [place] [address] Neutrophils/100 WBC (Bld) 52.5 % Normal [facility] Comment on above: Order Comment: Speci men Type: BLOOD SPECIMENOrdering Facility: [facility] Address: [address] [place] [address] Performed By: #### 5 7021-8 ####[facility] LABCLIA [id number] [place] [address] Nucleated RBC (Bld) [#/Vol] 10*3/uL Normal <0.01 [facility] Comment on above: Order Comment: Speci men Type: BLOOD SPECIMENOrdering Facility: [facility] Address: [address] [place] [address] Performed By: #### 5 7021-8 ####[facility] LABCLIA [id number] [place] [address] Nucleated RBC/100 WBC (Bld) [Ratio] 0.0 /100 WBC Normal [facility] Comment on above: Order Comment: Speci men Type: BLOOD SPECIMENOrdering Facility: [facility] Address: [address] [place] [address] Performed By: #### 5 7021-8 ####[facility] LABCLIA [id number] [place] [address] Platelet mean volume (Bld) [Entitic vol] 10.5 fL Normal 9.0-12.7 [facility] Comment on above: Order Comment: Speci men Type: BLOOD SPECIMENOrdering Facility: [facility] Address: [address] [place] [address] Performed By: #### 5 7021-8 ####[facility] LABIA [id number] [place] [address] Platelets (Bld) [#/Vol] 225 10*3/uL Normal 150-400 [facility] Comment on above: Order Comment: Speci men Type: BLOOD SPECIMENOrdering Facility: [facility] Address: [address] [place] [address] Performed By: #### 5 7021-8 ####[facility] LABIA [id number] [place] [address] RBC (Bld) [#/Vol] 3.77 10*6/uL Low 4.20-6.00 [facility] Comment on above: Order Comment: Speci men Type: BLOOD SPECIMENOrdering Facility: [facility] Address: [place] [address] Performed By: #### 5 7021-8 ####[facility] LABIA [id number] [place] [address] WBC (Bld) [#/Vol] 7.86 10*3/uL Normal 3.70-11.00 [facility] Comment on above: Order Comment: Speci men Type: BLOOD SPECIMENOrdering Facility: [facility] Address: [address] [facility] [address] Performed By: #### 5 7021-8 ####[facility] LABIA [id number] [place] [address] CNOVSPon 08-11-2022 OVS Visit (SP) Office ([facility]) ELVIRAPABLO Lopez ([id number]) 1945 M Date Time Provider Department 08/11/22 [...] OTHER PHYSICIANS: Dr. Anthony Scruggs, Dr. Khan, [facility] Cardiology Portions of this encounter note have [...] mg 24 hr tablet Take by mouth. 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 Left base margin positive for neoplasm. Seminal vesicles with no diagnostic abnormality. 2 resected lymph nodes negative for neoplasm. LABS: Hemoglobin (g/dL) Date Value 08/11/2022 11.9 05/08/2018 12.8 Hematocrit (%) Date Value 08/11/2022 35.6 05/08/2018 36.8 WBC (k/uL) Date Value (more content not included)... Normal [facility] metabolic 2000 panelon 08-11-2022 Albumin [Mass/Vol] 4.4 g/dL Normal 3.9-4.9 [facility] Comment on above: Order Comment: Speci men Type: BLOOD SPECIMENOrdering Facility: [facility] Address: [address] [place] [address] Performed By: #### 2 4323-8 ####[facility] LABCLIA [id number] [place] [address] ALP [Catalytic activity/Vol] 66 U/L Normal 38-113 [facility] Comment on above: Order Comment: Speci men Type: BLOOD SPECIMENOrdering Facility: [facility] Address: [address] [address] Performed By: #### 2 4323-8 ####[facility] LABCLIA [id number] [place] [address] ALT [Catalytic activity/Vol] 17 U/L Normal 10-54 [facility] Comment on above: Order Comment: Speci men Type: BLOOD SPECIMENOrdering Facility: [facility] Address: [address] [address] Performed By: #### 2 4323-8 ####[facility] LABCLIA [id number] [place] [address] Anion gap [Moles/Vol] 10 mmol/L Normal 9-18 [facility] Comment on above: Order Comment: Speci men Type: BLOOD SPECIMENOrdering Facility: [facility] Address: [address] [address] Performed By: #### 2 4323-8 ####[facility] LABCLIA [id number] [place] [address] AST [Catalytic activity/Vol] 18 U/L Normal 14-40 [facility] Comment on above: Order Comment: Speci men Type: BLOOD SPECIMENOrdering Facility: [facility] Address: [address] [address] Performed By: #### 2 4323-8 ####[facility] LABCLIA [id number] [place] [address] Bilirubin [Mass/Vol] 0.7 mg/dL Normal 0.2-1.3 [facility] Comment on above: Order Comment: Speci men Type: BLOOD SPECIMENOrdering Facility: [facility] Address: [address] [address] Performed By: #### 2 4323-8 ####[facility] LABCLIA [id number] [place] [address] Calcium [Mass/Vol] 9.4 mg/dL Normal 8.5-10.2 [facility] Comment on above: Order Comment: Speci men Type: BLOOD SPECIMENOrdering Facility: [facility] Address: [address] [place] [address] Performed By: #### 2 4323-8 ####[facility] LABCLIA [id number] [place] [address] Chloride [Moles/Vol] 99 mmol/L Normal 97-105 [facility] Comment on above: Order Comment: Speci men Type: BLOOD SPECIMENOrdering Facility: [facility] Address: [address] [place] [address] Performed By: #### 2 4323-8 ####[facility] LABCLIA [id number] [place] [address] CO2 [Moles/Vol] 27 mmol/L Normal 22-30 [facility] Comment on above: Order Comment: Speci men Type: BLOOD SPECIMENOrdering Facility: [facility] Address: [address] [address] Performed By: #### 2 4323-8 ####[facility] LABCLIA [id number] [place] [address] Creatinine [Mass/Vol] 0.76 mg/dL Normal 0.73-1.22 [facility] Comment on above: Order Comment: Speci men Type: BLOOD SPECIMENOrdering Facility: [facility] Address: [address] [place], [place] [address] Performed By: #### 2 4323-8 ####[facility] LABCLIA [id number] [place] [address] ESTIMATED GLOMERULAR FILTRATION RATE 93 mL/min/1.73m??? Normal >=60 [facility] Comment on above: Order Comment: Speci men Type: BLOOD SPECIMENOrdering Facility: [facility] Address: [address] [place] [address] Result Comment: Renae mated Glomerular Filtration Rate [...] actual GFR. Performed By: #### 2 4323-8 ####[facility] LABCLIA [id number] [place] [address] Glucose [Mass/Vol] 127 mg/dL High 74-99 [facility] Comment on above: Order Comment: Speci men Type: BLOOD SPECIMENOrdering Facility: [facility] Address: [address] [place] [address] Result Comment: The [place] Diabetes Association (ADA) provides guidance for cutoff [...] Standards of Medical Care in Diabetes 2016, [place] [employer]. Diabetes Care. 2016.39(Suppl 1). Performed By: #### 2 4323-8 ####[facility] LABCLIA [id number] [place] [address] Potassium [Moles/Vol] 4.4 mmol/L Normal 3.7-5.1 [facility] Comment on above: Order Comment: Speci men Type: BLOOD SPECIMENOrdering Facility: [facility] Address: [address] [place] [address] Performed By: #### 2 4323-8 ####[facility] LABCLIA [id number] [place] [address] Protein [Mass/Vol] 6.7 g/dL Normal 6.3-8.0 [facility] Comment on above: Order Comment: Speci men Type: BLOOD SPECIMENOrdering Facility: [facility] Address: [address] [place] [address] Performed By: #### 2 4323-8 ####[facility] LABCLIA [id number] [place] [address] Sodium [Moles/Vol] 136 mmol/L Normal 136-144 [facility] Comment on above: Order Comment: Speci men Type: BLOOD SPECIMENOrdering Facility: [facility] Address: [address] [place] [address] Performed By: #### 2 4323-8 ####[facility] LABCLIA [id number] [place] [address] Urea nitrogen [Mass/Vol] 16 mg/dL Normal 9-24 [facility] Comment on above: Order Comment: Speci men Type: BLOOD SPECIMENOrdering Facility: [facility] Address: [address] [place] [address] Performed By: #### 2 4323-8 ####[facility] LABCLIA [id number] [place] [address] PSA [facility] 08-11-2022 Prostate specific Ag [Mass/Vol] 0.11 ng/mL Normal <2.60 [facility] Comment on above: Order Comment: Speci men Type: BLOOD SPECIMENOrdering Facility: [facility] Address: [address] [place] [address] [place] [address] Result Comment: Terrie l PSA test methodology used is the Electrochemiluminescence Immunoassay by [employer]. Total PSA values by differing methodologies cannot be interchanged. Performed By: #### 2 857-1 ####[facility] LABCLIA [id number] [place] [address] [place] XR CSPINE OBL [...] CYNTHIA TORRES Date: 2022-07-21 15:52 Normal [facility] GLYCOHEMOGLOBIN A1Con 2021 ADA RECOMMENDATION SEE BELOW Normal [facility] Comment on above: Result Comment: ADA RECOMMENDED LIMIT 4.0 - 6.0 ADA THERAPEUTIC TARGET < 7.0 ACTION SUGGESTED > 7.0 Performed By: #### D ATA1C #### [facility] [address] [address] [address] Bharati Aguiar Glucose [Mass/Vol] 134 mg/dL Normal [facility] Comment on above: Performed By: #### D ATA1C #### [facility] [address] [address] [address] Bharati Aguiar HbA1c (Bld) [Mass fraction] 6.3 % Critically high 4.5-6.2 [facility] Comment on above: Performed By: #### D ATA1C #### [facility] [address] [address] [address] Bharati Aguiar Ambulatory Visit Summaryon Ambulatory Visit Summary PABLO FELIX :1945 Visit Date:05/13/2022 Ambulatory Visit Instructions Your Diagnosis Rising PSA following treatment for malignant neoplasm of prostate Prostate cancer Tests Performed Urnls Dip Stick Auto w/o Microscopy POC 704[address] Your Care Team Attending Physician - Anthony [...] Follow-Up Appointments Monday 8:00 AM EDT With: KAEL JAMES, Anthony Lee Where: [facility] Patient Educationon 05-13-20 Patient Education Oncology Prostate Cancer The prostate [...] Are older than age 65. ? Are -Beninese. ? Are obese. ? Have a family [...] Follow these instructions at home: ? Take cqwh-iyi-nclogck and prescription medicines only as told by [...] cancer specialis (more content not included)... Normal [facility] Office/Clinic Noteon 05-13-2022 Urology Office/Clinic Note [...] Contact Information KAEL JAMES, Anthony Lee, URL [facility] [id number]- Additional Instructions: 6 mos PSA & Lupron [...] (less than (more content not included)... Normal [facility] Comment on above: Result Comment: Elec tronically Signed By: Anthony SCRUGGS MD\.br\Date and Time Signed: 05/13/22 09:35 EDT\.br\Electronically Co-Signed By: Olamide Ureña.br\Date and Time Co-Signed: 05/13/22 09:33 EDT Consultation Noteon 05-12-20 Consultation Note [id number]:127 Normal [facility] Lab Reportson 05-09-2022 Lab Reports [id number]#[id number]:127 Normal [facility] ECHOCARDIO M/2D COMPLETEon 1 ECHOCARDIO M/2D COMPLETE Patient: PABLO FELIX Exam Date: 04/27/2022 : 1945 Gender:M Ordering : LORA ENGLISH Admission #: [id number] Family : DR JAMAR FALL DSony Order #: [id number] CLICK HERE TO VIEW EXAM ECHOCARDIOGRAM REPORT [...] Gradient: 2.72 mm[Hg] Right Atrium Dictated by: Fazian Carreon M.D. on 04/28/2022 at 19:03 Approved by: Faizan Carreon M.D. on 04/28/2022 at 19:09 Normal [facility] GLYCOHEMOGLOBIN A1Con 2021 ADA RECOMMENDATION SEE BELOW Normal [facility] Comment on above: Result Comment: ADA RECOMMENDED LIMIT 4.0 - 6.0 ADA THERAPEUTIC TARGET < 7.0 ACTION SUGGESTED > 7.0 Performed By: #### D ATA1C ####[facility] [address] [id number][address] Bharati Aguiar Glucose [Mass/Vol] 137 mg/dL Normal [facility] Comment on above: Performed By: #### D ATA1C ####[facility] [address] [place], [place] [address]Bp. Bharati Aguiar HbA1c (Bld) [Mass fraction] 6.4 % Critically high 4.5-6.2 [facility] Comment on above: Performed By: #### Herlinda ATA1C ####[facility] [address] [place], [place] [address]Uw. Bharati Aguiar NM BONE SC WH BODYon [...] it was not obviously included in the wgugu-gt-qdph of the recent CT. There are foci [...] FEDE DE JESUS Date: 2021-11-06 12:45 Normal [facility] CT CHEST W CONon 11-05-2021 CT CHEST [...] LUIZ UMANA Date: 2021-11-05 14:08 Normal [facility] PROF 14(COMP METB)on 022 Albumin [Mass/Vol] 3.6 g/dL Normal 3.4-5.0 [facility] Comment on above: Performed By: #### C MP #### [facility] [address] [place] [address] Dr. Bharati Aguiar Albumin/Globulin [Mass ratio] 1.1 {ratio} Normal [facility] Comment on above: Performed By: #### C MP #### [facility] [address] [place] [address] Dr. Bharati Aguiar ALP [Catalytic activity/Vol] 89 U/L Normal 46-116 [facility] Comment on above: Performed By: #### C MP #### [facility] [address] [place] [address] Dr. Bharati Aguiar ALT [Catalytic activity/Vol] 33 U/L Normal 16-63 [facility] Comment on above: Performed By: #### C MP #### [facility] [address] [place] [address] Dr. Bharati Aguiar Anion gap [Moles/Vol] 12.1 mmol/L Normal [facility] Comment on above: Performed By: #### C MP #### [facility] [address] [place] [address] Dr. Bharati Aguiar AST [Catalytic activity/Vol] 19 U/L Normal 15-37 [facility] Comment on above: Performed By: #### C MP #### [facility] [address] [address] [address] Bharati Aguiar Bilirubin [Mass/Vol] 0.9 mg/dL Normal 0.2-1.3 [facility] Comment on above: Performed By: #### C MP #### [facility] [address] [address] [address] Bharati Aguiar Calcium [Mass/Vol] 8.8 mg/dL Normal 8.5-10.1 [facility] Comment on above: Performed By: #### C MP #### [facility] [address] [address] [address] Bharati Aguiar Chloride [Moles/Vol] 103 mmol/L Normal 98-107 [facility] Comment on above: Performed By: #### C MP #### [facility] [address] [place] [address] Dr. Bharati Aguiar CO2 [Moles/Vol] 28.6 mmol/L Normal 22.0-30.0 [facility] Comment on above: Performed By: #### C MP #### [facility] [address] [place] [address] Dr. Bharati Aguiar Creatinine [Mass/Vol] 0.85 mg/dL Normal 0.66-1.25 [facility] Comment on above: Performed By: #### C MP #### [facility] [address] [place] [address] Dr. Bharati Aguiar EGFR-AF BANGLADESHI >60 Normal >=60 [facility] Comment on above: Performed By: #### C MP #### [facility] [address] [address] [address] Bharati Aguiar EGFR-NON AF BANGLADESHI >60 Normal >=60 [facility] Comment on above: Performed By: #### C MP #### [facility] [address] [place] [address] Dr. Bharati Aguiar Globulin (S) [Mass/Vol] 3.4 g/dL Normal [facility] Comment on above: Performed By: #### C MP #### [facility] [address] [place] [address] Dr. Bharati Aguiar Glucose [Mass/Vol] 127 mg/dL Critically high 74-106 [facility] Comment on above: Performed By: #### C MP #### [facility] [address] [address] [address] Bharati Aguiar Potassium [Moles/Vol] 4.7 mmol/L Normal 3.4-5.0 [facility] Comment on above: Performed By: #### C MP #### [facility] [address] [address] [address] Bharati Aguiar Protein [Mass/Vol] 7.0 g/dL Normal 6.1-8.2 [facility] Comment on above: Performed By: #### C MP #### [facility] [address] [address] [address] Bharati Aguiar Sodium [Moles/Vol] 139 mmol/L Normal 137-145 [facility] Comment on above: Performed By: #### C MP #### [facility] [address] [address] [address] Bharati Aguiar Urea nitrogen [Mass/Vol] 18.0 mg/dL Normal 7.0-18.0 [facility] Comment on above: Performed By: #### C MP #### [facility] [address] [place] [address] Dr. Bharati Aguiar Urea nitrogen/Creatinin e [Mass ratio] 21.2 mg/mg Normal [facility] Comment on above: Performed By: #### C MP #### [facility] [address] [address] [address] Bharati Aguiar Vital Signs Date Time Vital Sign Value Performing Clinician Facility 08-24-2023 08:30-0500 Body height 168.91 cm Jamar Fall Other [facility] Other 08-24-2023 08:30-0500 Body mass index (BMI) [Ratio] 34.08 kg/m2 Jamar Fall Other [facility] Other 08-24-2023 08:30-0500 Body weight 97.25 kg Jamar Ball Other [facility] Other 08-24-2023 08:30-0500 Diastolic blood pressure 81 mm[Hg] Jamar Ball Other [facility] Other 08-24-2023 08:30-0500 Respiratory rate 12 /min Jamar Ball Other [facility] Other 08-24-2023 08:30-0500 Systolic blood pressure 125 mm[Hg] Jamar Ball Other [facility] Other 05-30-2023 15:00-0500 Body height 168.91 cm Jamar Ball Other [facility] Other 05-30-2023 15:00-0500 Body mass index (BMI) [Ratio] 32.84 kg/m2 Jamar Ball Other [facility] Other 05-30-2023 15:00-0500 Body weight 93.71 kg Jamar Ball Other [facility] Other 05-30-2023 15:00-0500 Diastolic blood pressure 66 mm[Hg] Jamar Ball Other [facility] Other 05-30-2023 15:00-0500 Respiratory rate 12 /min Jamar Ball Other [facility] Other 05-30-2023 15:00-0500 Systolic blood pressure 141 mm[Hg] Jamar Ball Other [facility] Other 05-01-2023 09:45-0400 Body height 168.91 cm Jamar Ball Other [facility] Other 05-01-2023 09:45-0400 Body mass index (BMI) [Ratio] 32.14 kg/m2 Jamar Ball Other [facility] Other 05-01-2023 09:45-0400 Body weight 91.72 kg Jamar Ball Other [facility] Other 05-01-2023 09:45-0400 Diastolic blood pressure 62 mm[Hg] Jamar Ball Other [facility] Other 05-01-2023 09:45-0400 Respiratory rate 12 /min Jamar Ball Other [facility] Other 05-01-2023 09:45-0400 Systolic blood pressure 129 mm[Hg] Jamar Ball Other [facility] Other 04-27-2023 09:23-0400 Diastolic blood pressure 49 mm[Hg] Christo Howard APRN.GARMENT WORKER Work Phone: [facility] 04-27-2023 09:23-0400 Heart rate 50 /min Christo Howard APRN.GARMENT WORKER Work Phone: [facility] 04-27-2023 09:23-0400 Systolic blood pressure 141 mm[Hg] Christo Howard APRN.GARMENT WORKER Work Phone: [facility] 04-27-2023 09:20-0400 Body height 167.6 cm Christo Howard APRN.GARMENT WORKER Work Phone: [facility] 04-27-2023 09:20-0400 Body temperature 97 [degF] Christo Howard APRN.GARMENT WORKER Work Phone: [facility] 04-27-2023 09:20-0400 Body weight 92.53 kg Christo Howard APRN.GARMENT WORKER Work Phone: [facility] 04-27-2023 09:20-0400 Respiratory rate 16 /min Christo Howard APRN.GARMENT WORKER Work Phone: [facility] 04-27-2023 09:20-0400 SaO2% (BldA) [Mass fraction] 100 % Christo Howard APRN.CNP Work Phone: [facility] 04-17-2023 08:45-0400 Blood Pressure Location Anthony SCRUGGS [facility] 04-17-2023 08:45-0400 Diastolic blood pressure 68 mm[Hg] Anthony SCRUGGS [facility] 04-17-2023 08:45-0400 Heart rate 62 /min Anthony SCRUGGS [facility] 04-17-2023 08:45-0400 Respiratory rate 16 /min Anthony SCRUGGS [facility] 04-17-2023 08:45-0400 Systolic blood pressure 130 mm[Hg] Anthony SCRUGGS [facility] 04-05-2023 13:45-0400 Body height 168.91 cm Jamar Ball Other [facility] Other 04-05-2023 13:45-0400 Body mass index (BMI) [Ratio] 32.46 kg/m2 Jamar Ball Other [facility] Other 04-05-2023 13:45-0400 Body weight 92.63 kg Jamar Ball Other [facility] Other 04-05-2023 13:45-0400 Diastolic blood pressure 67 mm[Hg] Jamar Ball Other [facility] Other 04-05-2023 13:45-0400 Respiratory rate 12 /min Jamar Ball Other [facility] Other 04-05-2023 13:45-0400 Systolic blood pressure 109 mm[Hg] Jamar Ball Other [facility] Other 03-15-2023 08:45-0400 Body height 168.91 cm Jamar Ball Other [facility] Other 03-15-2023 08:45-0400 Body mass index (BMI) [Ratio] 32.81 kg/m2 Jamar Ball Other [facility] Other 03-15-2023 08:45-0400 Body weight 93.62 kg Jamar Ball Other [facility] Other 03-15-2023 08:45-0400 Diastolic blood pressure 69 mm[Hg] Jamar Ball Other [facility] Other 03-15-2023 08:45-0400 Respiratory rate 12 /min Jamar Ball Other [facility] Other 03-15-2023 08:45-0400 Systolic blood pressure 131 mm[Hg] Jamar Ball Other [facility] Other 02-02-2023 09:32-0400 Body height 167.6 cm Marco A Esqueda MD Work Phone: [facility] 02-02-2023 09:32-0400 Body temperature 97.2 [degF] Marco A Esqueda MD Work Phone: [facility] 02-02-2023 09:32-0400 Body weight 96.62 kg Marco A Esqueda MD Work Phone: [facility] 02-02-2023 09:32-0400 Diastolic blood pressure 43 mm[Hg] Marco A Esqueda MD Work Phone: [facility] 02-02-2023 09:32-0400 Heart rate 50 /min Marco A Esqueda MD Work Phone: [facility] 02-02-2023 09:32-0400 Respiratory rate 16 /min Marco A Esqueda MD Work Phone: [facility] 02-02-2023 09:32-0400 SaO2% (BldA) [Mass fraction] 97 % Marco A Esqueda MD Work Phone: [facility] 02-02-2023 09:32-0400 Systolic blood pressure 131 mm[Hg] Marco A Esqueda MD Work Phone: [facility] 11-10-2022 09:30-0400 Body height 167.6 cm Christo Howard DIRECTOR MEDICAL AFFAIRS.GARMENT WORKER Work Phone: [facility] 11-10-2022 09:30-0400 Body temperature 97.11 [degF] Christo Howard DIRECTOR MEDICAL AFFAIRS.GARMENT WORKER Work Phone: [facility] 11-10-2022 09:30-0400 Body weight 96.44 kg hCristo Howard DIRECTOR MEDICAL AFFAIRS.GARMENT WORKER Work Phone: [facility] 11-10-2022 09:30-0400 Diastolic blood pressure 68 mm[Hg] Christo Howard DIRECTOR MEDICAL AFFAIRS.GARMENT WORKER Work Phone: [facility] 11-10-2022 09:30-0400 Heart rate 54 /min Christo Howard DIRECTOR MEDICAL AFFAIRS.GARMENT WORKER Work Phone: [facility] 11-10-2022 09:30-0400 Respiratory rate 16 /min Christo Howard DIRECTOR MEDICAL AFFAIRS.GARMENT WORKER Work Phone: [facility] 11-10-2022 09:30-0400 SaO2% (BldA) [Mass fraction] 98 % Christo Howard DIRECTOR MEDICAL AFFAIRS.GARMENT WORKER Work Phone: [facility] 11-10-2022 09:30-0400 Systolic blood pressure 134 mm[Hg] Christo Howard DIRECTOR MEDICAL AFFAIRS.GARMENT WORKER Work Phone: [facility] 09-16-2022 08:30-0500 Body height 168.91 cm Jamar Fall Other [facility] Other 09-16-2022 08:30-0500 Body mass index (BMI) [Ratio] 33.16 kg/m2 Jamar Ball Other [facility] Other 09-16-2022 08:30-0500 Body weight 94.62 kg Jamar Ball Other [facility] Other 09-16-2022 08:30-0500 Diastolic blood pressure 78 mm[Hg] Jamar Ball Other [facility] Other 09-16-2022 08:30-0500 Respiratory rate 12 /min Jamar Ball Other [facility] Other 09-16-2022 08:30-0500 Systolic blood pressure 116 mm[Hg] Jamar Ball Other [facility] Other 09-09-2022 08:30-0500 Body height 168.91 cm Jamar Ball Other [facility] Other 09-09-2022 08:30-0500 Body mass index (BMI) [Ratio] 33.45 kg/m2 Jamar Ball Other [facility] Other 09-09-2022 08:30-0500 Body weight 95.44 kg Jamar Ball Other [facility] Other 09-09-2022 08:30-0500 Diastolic blood pressure 76 mm[Hg] Jamar Ball Other [facility] Other 09-09-2022 08:30-0500 Respiratory rate 12 /min Jamar Ball Other [facility] Other 09-09-2022 08:30-0500 Systolic blood pressure 118 mm[Hg] Jamar Ball Other [facility] Other 09-09-2022 07:30-0500 Body height 168.91 cm Jamar Ball Other [facility] Other 09-09-2022 07:30-0500 Body mass index (BMI) [Ratio] 33.45 kg/m2 Jamar Ball Other [facility] Other 09-09-2022 07:30-0500 Body weight 95.44 kg Jamar Ball Other [facility] Other 09-09-2022 07:30-0500 Diastolic blood pressure 76 mm[Hg] Jamar Ball Other [facility] Other 09-09-2022 07:30-0500 Respiratory rate 12 /min Jamar Ball Other [facility] Other 09-09-2022 07:30-0500 Systolic blood pressure 118 mm[Hg] Jamar Ball Other [facility] Other 08-11-2022 09:24-0500 Body height 167.6 cm Marco A Esqueda MD Work Phone: [facility] 08-11-2022 09:24-0500 Body temperature 97 [degF] Marco A Esqueda MD Work Phone: [facility] 08-11-2022 09:24-0500 Body weight 96.44 kg Marco A Esqueda MD Work Phone: [facility] 08-11-2022 09:24-0500 Diastolic blood pressure 56 mm[Hg] Marco A Esqueda MD Work Phone: [facility] 08-11-2022 09:24-0500 Heart rate 53 /min Marco A Esqueda MD Work Phone: [facility] 08-11-2022 09:24-0500 Respiratory rate 16 /min Marco A Esqueda MD Work Phone: [facility] 08-11-2022 09:24-0500 SaO2% (BldA) [Mass fraction] 97 % Marco A Esqueda MD Work Phone: [facility] 08-11-2022 09:24-0500 Systolic blood pressure 129 mm[Hg] Marco A Esqueda MD Work Phone: [facility] 07-21-2022 15:30-0500 Body height 168.91 cm Jamar Ball Other [facility] Other 07-21-2022 15:30-0500 Body mass index (BMI) [Ratio] 34.18 kg/m2 Jamar Ball Other [facility] Other 07-21-2022 15:30-0500 Body weight 97.52 kg Jamar Ball Other [facility] Other 07-21-2022 15:30-0500 Diastolic blood pressure 76 mm[Hg] Jamar Ball Other [facility] Other 07-21-2022 15:30-0500 Respiratory rate 16 /min Jamar Ball Other [facility] Other 07-21-2022 15:30-0500 Systolic blood pressure 118 mm[Hg] Jamar Ball Other [facility] Other 05-13-2022 09:07-0400 Blood Pressure Location Anthonycindy SCRUGGS [facility] 05-13-2022 09:07-0400 Diastolic blood pressure 72 mm[Hg] Anthony SCRUGGS [facility] 05-13-2022 09:07-0400 Heart rate 55 /min Anthony SCRUGGS [facility] 05-13-2022 09:07-0400 Respiratory rate 16 /min Anthony KAEL [facility] 05-13-2022 09:07-0400 Systolic blood pressure 108 mm[Hg] Anthony SCRUGGS [facility] 05-12-2022 10:41-0400 Body temperature 97.81 [degF] LUAN Khan MD Work Phone: [facility] 05-12-2022 10:41-0400 Body weight 95.07 kg LUAN Khan MD Work Phone: [facility] 05-12-2022 10:41-0400 Diastolic blood pressure 42 mm[Hg] LUAN Khan MD Work Phone: [facility] 05-12-2022 10:41-0400 Heart rate 51 /min LUAN Khan MD Work Phone: [facility] 05-12-2022 10:41-0400 Respiratory rate 18 /min LUAN Khan MD Work Phone: [facility] 05-12-2022 10:41-0400 SaO2% (BldA) [Mass fraction] 99 % LUAN Khan MD Work Phone: [facility] 05-12-2022 10:41-0400 Systolic blood pressure 134 mm[Hg] LUAN Khan MD Work Phone: [facility] 02-17-2022 09:36-0400 Body height 167.6 cm Marco A Esqueda MD Work Phone: [facility] 02-17-2022 09:36-0400 Body temperature 97.9 [degF] Marco A Esqueda MD Work Phone: [facility] 02-17-2022 09:36-0400 Body weight 97.07 kg Marco A Esqueda MD Work Phone: [facility] 02-17-2022 09:36-0400 Diastolic blood pressure 58 mm[Hg] Marco A Esqueda MD Work Phone: [facility] 02-17-2022 09:36-0400 Heart rate 63 /min Marco A Esqueda MD Work Phone: [facility] 02-17-2022 09:36-0400 Respiratory rate 16 /min Marco A Esqueda MD Work Phone: [facility] 02-17-2022 09:36-0400 SaO2% (BldA) [Mass fraction] 99 % Marco A Esqueda MD Work Phone: [facility] 02-17-2022 09:36-0400 Systolic blood pressure 133 mm[Hg] Marco A Esqueda MD Work Phone: [facility] 11-18-2021 10:50-0400 Body temperature 97.7 [degF] [facility] [place] Work Phone: [facility] 11-18-2021 10:50-0400 Diastolic blood pressure 63 mm[Hg] [facility] [place] Work Phone: [facility] 11-18-2021 10:50-0400 Heart rate 60 /min [facility] [place] Work Phone: [facility] 11-18-2021 10:50-0400 Respiratory rate 18 /min [facility] [place] Work Phone: [facility] 11-18-2021 10:50-0400 SaO2% (BldA) [Mass fraction] 95 % [facility] [place] Work Phone: [facility] 11-18-2021 10:50-0400 Systolic blood pressure 139 mm[Hg] [facility] [place] Work Phone: [facility] 11-11-2021 13:58-0400 Body height 167.6 cm Marco A Esqueda MD Work Phone: [facility] 11-11-2021 13:58-0400 Body temperature 97.39 [degF] Marco A Esqueda MD Work Phone: [facility] 11-11-2021 13:58-0400 Body weight 98.97 kg Marco A Esqueda MD Work Phone: [facility] 11-11-2021 13:58-0400 Diastolic blood pressure 54 mm[Hg] Marco A Esqueda MD Work Phone: [facility] 11-11-2021 13:58-0400 Heart rate 68 /min Marco A Esqueda MD Work Phone: [facility] 11-11-2021 13:58-0400 Respiratory rate 16 /min Marco A Esqueda MD Work Phone: [facility] 11-11-2021 13:58-0400 SaO2% (BldA) [Mass fraction] 98 % Marco A Esqueda MD Work Phone: [facility] 11-11-2021 13:58-0400 Systolic blood pressure 130 mm[Hg] Marco A Esqueda MD Work Phone: [facility] 11-08-2021 13:03-0400 Blood Pressure Location Anthony SCRUGGS [facility] 11-08-2021 13:03-0400 Diastolic blood pressure 60 mm[Hg] Anthony SCRUGGS [facility] 11-08-2021 13:03-0400 Heart rate 61 /min Anthony SCRUGGS [facility] 11-08-2021 13:03-0400 Systolic blood pressure 135 mm[Hg] Anthony SCRUGGS [facility] Encounters Encounter Date Encounter Type Care Provider Facility Start: 10-20-2023 ambulatory Anthony Avalos ty:NORA Roberts Start: 09-28-2023 End: 09-28-2023 ambulatory PABLO CHRISTINA Not Available Start: 08-28-[address] DIRECTOR MEDICAL AFFAIRS-GARMENT WORKER Work Phone: [facility] Start: 08-28-[address] DIRECTOR MEDICAL AFFAIRS-GARMENT WORKER Work Phone: [facility] Start: 08-28-2023 End: 08-28-2023 ambulatory LONG BOO Not Available Start: 08-28-2023 End: 08-28-2023 Patient encounter procedure Long Boo DIRECTOR MEDICAL AFFAIRS-GARMENT WORKER Work Phone: [facility] Comment on above: Neoplasm of unspecif ied behavior of bone, soft tissue, and skin; Actinic keratosis Start: 08-24-2023 End: 08-24-2023 ambulatory Jamar Fall Other [facility] Other Start: 08-24-2023 Patient encounter procedure Jamar Fall [facility] Start: 08-04-2023 End: 08-04-2023 ambulatory Jamar Fall Other [facility] Other Start: 08-04-2023 Telephone encounter Jamar EDMONDS [facility] Start: 08-03-2023 End: 08-03-2023 ambulatory JAMAR FALL Facility:[facility] Start: 07-27-2023 End: 07-27-2023 ambulatory JAMAR FALL Facility:[facility] Start: 06-22-2023 End: 06-22-2023 ambulatory AB [facility] Start: 06-05-2023 Telephone encounter Jamar EDMONDS [facility] Start: 06-05-2023 End: 06-05-2023 ambulatory EMELINA LOUIS [facility] Other Start: 05-30-2023 End: 05-30-2023 ambulatory Jamar Fall Other [facility] Other Start: 05-30-2023 Office outpatient vi sit 15 minutes Jamar Fall [facility] Start: 05-01-2023 End: 05-01-2023 ambulatory Jamar Fall Other [facility] Other Start: 05-01-2023 Office outpatient vi sit 15 minutes Jamar Fall [facility] Start: 04-27-2023 Telephone encounter Jamar EDMONDS [facility] Start: 04-27-2023 End: 04-27-2023 ambulatory JAMAR FALL Facility:[facility] Start: 04-27-2023 End: 04-27-2023 ambulatory [facility] [place] Work Phone: Hematology/Oncology Comment on above: Malignant neoplasm o f prostate (HCC) (Primary Dx) Malignant neoplasm o f prostate (HCC) (Primary Dx); Coronary artery disease involving [place] heart without angina pectoris, unspecified vessel or lesion type; Essential hypertension; Type 2 diabetes mellitus without complication, without long-term current use of insulin (HCC) Start: 04-27-2023 End: 04-27-2023 Patient encounter procedure Christo Howard APRN.CNP Work Phone: [place] Start: 04-25-2023 End: 04-25-2023 ambulatory Jamar Fall Other [facility] Other Start: 04-25-2023 Telephone encounter Jamar Fall [facility] Start: 04-24-2023 End: 04-24-2023 ambulatory JAMAR FALL Facility:[facility] Start: 04-18-2023 End: 04-18-2023 ambulatory Jamar Fall Other [facility] Other Start: 04-18-2023 Telephone encounter [facility]ar [facility] Start: 04-17-2023 End: 04-18-2023 ambulatory Anthony SCRUGGS Facility:[facility] Start: 04-17-2023 End: 04-17-2023 Patient encounter procedure Anthony SCRUGGS [facility] Start: 04-12-2023 End: 04-12-2023 ambulatory Jamar Fall Other [facility] Other Start: 04-12-2023 Telephone encounter Jamar Fall [facility] Start: 04-06-2023 End: 04-06-2023 ambulatory Jmaar Fall Other [facility] Other Start: 04-06-2023 Telephone encounter Jamar Fall [facility] Start: 04-05-2023 End: 04-05-2023 ambulatory Jamar Fall Other [facility] Other Start: 04-05-2023 Office outpatient vi sit 15 minutes Jamar Fall [facility] Start: 04-05-2023 Telephone encounter Jamar Fall FP [facility] Start: 03-15-2023 End: 03-15-2023 ambulatory Jamar Fall Other [facility] Other Start: 03-15-2023 Office outpatient vi sit 25 minutes Jamar Fall [facility] Start: 02-05-2023 End: 02-05-2023 ambulatory Jamar Fall Other [facility] Other Start: 02-05-2023 Telephone encounter Jamar Fall FP [facility] Start: 02-02-2023 End: 02-02-2023 ambulatory [facility] [place] Work Phone: Hematology/Oncology Comment on above: Malignant neoplasm o f prostate (HCC) (Primary Dx) Start: 02-02-2023 End: 02-02-2023 Patient encounter procedure Marco A Esqueda MD Work Phone: [place] Start: 11-15-2022 End: 11-15-2022 ambulatory Jamar Fall Other [facility] Other Start: 11-15-2022 Encounter by mannie pavon Jamar Fall [facility] Start: 11-11-2022 End: 11-11-2022 ambulatory Jamar Fall Other [facility] Other Start: 11-11-2022 Encounter by mannie Fall [facility] Start: 11-10-2022 End: 11-10-2022 ambulatory JAMAR FALL Facility:[facility] Start: 11-10-2022 End: 11-10-2022 ambulatory Lab[facility] [place] Work Phone: Hematology/Oncology Comment on above: Malignant neoplasm o f prostate (HCC) (Primary Dx) Malignant neoplasm o f prostate (HCC) (Primary Dx); Coronary artery disease involving [place] heart without angina pectoris, unspecified vessel or lesion type; Essential hypertension; Type 2 diabetes mellitus without complication, without long-term current use of insulin (HCC) Start: 11-10-2022 End: 11-10-2022 Patient encounter procedure Christo Howard APRN.CNP Work Phone: [facility] Start: 10-28-2022 End: 10-29-2022 ambulatory Anthony SCRUGGS Facility: [facility] Start: 10-25-2022 End: 10-26-[address] ANTHONY SCRUGGS . Facility: Start: 09-16-2022 End: 09-16-2022 ambulatory Jamar Fall Other [facility] Other Start: 09-16-2022 Office outpatient vi sit 15 minutes Jamar Fall [facility] Start: 09-09-2022 End: 09-09-2022 ambulatory Jamar Fall Other [facility] Other Start: 09-09-2022 Patient encounter procedure Jamar Fall [facility] Start: 09-05-2022 End: 09-06-[address] DE LISTED REQUEST Facility: Start: 08-11-2022 End: 08-11-2022 ambulatory JAMAR FALL Facility:[facility] Start: 08-11-2022 End: 08-11-2022 ambulatory Lab/[facility] [place] Work Phone: Hematology/Oncology Comment on above: Malignant neoplasm o f prostate (HCC) (Primary Dx) Malignant neoplasm o f prostate (HCC) (Primary Dx); Bone metastasis (HCC); Coronary artery disease involving [place] heart without angina pectoris, unspecified vessel or lesion type; Essential hypertension; Type 2 diabetes mellitus without complication, without long-term current use of insulin (HCC) Start: 08-11-2022 End: 08-11-2022 Patient encounter procedure Marco A Esqueda MD Work Phone: [place] Start: 07-21-2022 End: 07-22-[address] JAMAR FALL [facility] Other Start: 07-21-2022 Office outpatient vi sit 15 minutes Jamar Fall [facility] Start: 07-21-2022 Patient encounter procedure Jamar Fall [facility] Start: 07-21-2022 Telephone encounter Jamar Fall FP [facility] Start: 05-27-2022 End: 05-28-[address] DE LISTED REQUEST Facility: Start: 05-13-2022 End: 05-14-2022 ambulatory Anthony SCRUGGS Facility:[facility] Start: 05-13-2022 End: 05-13-2022 Patient encounter procedure Anthony SCRUGGS [facility] Start: 05-12-2022 End: 05-12-2022 Patient encounter [...] encounter procedure Anthony SCRUGGS [facility] Start: 11-05-2021 End: 11-06-[address] MARCO A ESQUEDA Facility:[facility] Start: 11-04-2021 ambulatory Clementine lee RN Work Phone: Hematology/Oncology Comment on above: Oral Anti-cancer Age nt Education (Enzalutamide) Start: 11-04-2021 Telephone encounter Aida Marty Blountcindy [facility] Work Phone: Hematology/Oncology Comment on above: Medication [...] 07-22-2021 Adult health examination Bam Fall Other [facility] Other Procedures Date Procedure Procedure Detail Performing Clinician Start: 08-28-2023 CRYOTHERAPY SKIN LESION Long Iraj Boo DIRECTOR MEDICAL AFFAIRS-GARMENT WORKER Work Phone: Start: 08-28-2023 SKIN / NAIL BIOPSY Windy lie Iraj Boo DIRECTOR MEDICAL AFFAIRS-GARMENT WORKER Work Phone: Start: 10-25-[address] JESE FALL Comment on above: Performed By: #### P SAD #### [facility] [address] [place], [place] [address] Dr. Bharati Aguiar Start: 05-05-[address] JESE FALL Comment on above: Performed By: #### P SAD ####[facility] [id number] [place], [place] [address]SwDr. Bharati Aguiar Start: 02-16-2022 Adult depression scr eening assessment Marco A Esqueda MD Work Phone: Start: 11-10-2021 Adult depression scr eening assessment Clementine Aguilar RN Work Phone: Start: 05-03-2021 Adult depression scr eening assessment Marco A Esqueda MD Work Phone: Start: 03-30-2018 Teleradiotherapy procedure Anthony SCRUGGS Comment on above: Started on 01/2018 co mpleted 03/30/18 Start: 10-20-2015 Cystoscopy Anthony SIEGEL MELYEricka Start: 07-04-2015 Screening for malign ant neoplasm of colon Jamar Fall Other Start: 11-05-2014 Radical prostatectomy P gen SCRUGGS Start: 08-25-2014 Pre-surgery evaluation Jamar [...] Author Start: 04-24-2026 Diabetes Screening Diabetes Screening [facility] Start: 02-02-2026 DIABETES SCREEN DIABETES SCREEN [facility] Start: 11-10-2025 DIABETES SCREEN DIABETES SCREEN [facility] Start: 08-11-2025 DIABETES SCREEN DIABETES SCREEN [facility] Start: 05-12-2025 DIABETES SCREEN DIABETES SCREEN [facility] Start: 02-17-2025 DIABETES SCREEN DIABETES SCREEN [facility] Start: 11-11-2024 DIABETES SCREEN DIABETES SCREEN [facility] Start: 02-26-2024 End: 02-26-2024 Patient encounter procedure 02/26/2024 10:10 AM EDT Office Visit [facility] [address] [place] [id number] Long Boo, DIRECTOR MEDICAL AFFAIRS-GARMENT WORKER [address] [place] [address] [facility] Start: 08-28-2023 End: 08-28-2023 Patient encounter procedure 08/28/2023 11:25 AM EST Office Visit [facility] [address] [place] [id number] Long Boo, DIRECTOR MEDICAL AFFAIRS-GARMENT WORKER [address] [place] [address] Arrived [facility] Comment on above: Arrived Start: 07-28-2023 End: 09-27-2023 CBC W Auto Differential panel - Blood CBC + DIFF Lab Routine Malignant neoplasm of prostate (HCC) Coronary artery disease involving [place] heart without angina pectoris, unspecified vessel or lesion type Essential hypertension Type 2 diabetes mellitus without complication, without long-term current use of insulin (HCC) Expected: 07/28/2023, Expires: 09/27/2023 [facility] Work Phone: Comment on above: Expected: 07/28/2023, Expires: Start: 07-28-2023 End: 09-27-2023 Comprehensive metabolic 2000 panel - Serum or Plasma COMP METABOLIC PANEL Lab Routine Malignant neoplasm of prostate (HCC) Coronary artery disease involving [place] heart without angina pectoris, unspecified vessel or lesion type Essential hypertension Type 2 diabetes mellitus without complication, without long-term current use of insulin (HCC) Expected: 07/28/2023, Expires: 09/27/2023 [facility] Work Phone: Comment on above: Expected: 07/28/2023, Expires: Start: 07-28-2023 End: 09-27-2023 Prostate specific Ag [Mass/volume] in Serum or Plasma PSA/PROSTSPECAG DIAG Lab Routine Malignant neoplasm of prostate (HCC) Coronary artery disease involving [place] heart without angina pectoris, unspecified vessel or lesion type Essential hypertension Type 2 diabetes mellitus without complication, without long-term current use of insulin (HCC) Expected: 07/28/2023, Expires: 09/27/2023 [facility] Work Phone: Comment on above: Expected: 07/28/2023, Expires: Start: 06-19-2023 Urine microalbumin profile [facility] Start: 05-03-2023 End: 07-03-2023 Basic metabolic 2000 panel - Serum or Plasma BASIC METABOLIC PNL Lab Routine Malignant neoplasm of prostate (HCC) Expected: 05/03/2023 (Approximate), Expires: 07/03/2023 [facility] Work Phone: Comment on above: Expected: 05/03/2023 (Approximate), Expi res: 07/03/2023 Start: 05-03-2023 End: 07-03-2023 CBC W Auto Differential panel - Blood CBC + DIFF Lab Routine Malignant neoplasm of prostate (HCC) Expected: 05/03/2023 (Approximate), Expires: 07/03/2023 [facility] Work Phone: Comment on above: Expected: 05/03/2023 (Approximate), Expi res: 07/03/2023 Start: 05-03-2023 End: 07-03-2023 Prostate specific Ag [Mass/volume] in Serum or Plasma PSA/PROSTSPECAG DIAG Lab Routine Malignant neoplasm of prostate (HCC) Expected: 05/03/2023 (Approximate), Expires: 07/03/2023 [facility] Work Phone: Comment on above: Expected: 05/03/2023 (Approximate), Expi res: 07/03/2023 Start: 05-03-2023 End: 07-03-2023 Testosterone [Mass/volume] in Serum or Plasma TESTOSTERONE TOTAL Lab Routine Malignant neoplasm of prostate (HCC) Expected: 05/03/2023 (Approximate), Expires: 07/03/2023 [facility] Work Phone: Comment on above: Expected: 05/03/2023 (Approximate), Expi res: 07/03/2023 Start: 03-17-2023 Covid-19 Vaccine () Covid-19 Vaccine () [facility] Start: 03-17-2023 Influenza vaccination [facility] Start: 02-16-2023 Adult depression screening assessment DEPRESSION SCREENING [facility] Start: 02-09-2023 End: 04-11-2023 CBC W Auto Differential panel - Blood CBC + DIFF Lab Routine Malignant neoplasm of prostate (HCC) Coronary artery disease involving [place] heart without angina pectoris, unspecified vessel or lesion type Essential hypertension Type 2 diabetes mellitus without complication, without long-term current use of insulin (HCC) Expected: 02/09/2023, Expires: 04/11/2023 [facility] Work Phone: Comment on above: Expected: 02/09/2023, Expires: Start: 02-09-2023 End: 04-11-2023 Comprehensive metabolic 2000 panel - Serum or Plasma COMP METABOLIC PANEL Lab Routine Malignant neoplasm of prostate (HCC) Coronary artery disease involving [place] heart without angina pectoris, unspecified vessel or lesion type Essential hypertension Type 2 diabetes mellitus without complication, without long-term current use of insulin (HCC) Expected: 02/09/2023, Expires: 04/11/2023 [facility] Work Phone: Comment on above: Expected: 02/09/2023, Expires: Start: 02-09-2023 End: 04-11-2023 Prostate specific Ag [Mass/volume] in Serum or Plasma PSA/PROSTSPECAG DIAG Lab Routine Malignant neoplasm of prostate (HCC) Coronary artery disease involving [place] heart without angina pectoris, unspecified vessel or lesion type Essential hypertension Type 2 diabetes mellitus without complication, without long-term current use of insulin (HCC) Expected: 02/09/2023, Expires: 04/11/2023 [facility] Work Phone: Comment on above: Expected: 02/09/2023, Expires: 3 Start: 11-10-2022 Adult depression screening assessment DEPRESSION SCREENING [facility] Start: 08-22-2022 COVID-19 VACCINE (6 - Moderna series) COVID-19 VACCINE (6 - Moderna series) [facility] Start: 07-17-2022 ADVANCE DIRECTIVE DISCUSSION ADVANCE DIRECTIVE DISCUSSION [facility] Start: 07-17-2022 DEPRESSION ASSESSMENT DEPRESSION ASSESSMENT [facility] Start: 05-03-2022 Adult depression screening assessment DEPRESSION SCREENING [facility] Start: 05-03-2022 End: 07-03-2022 CBC W Auto Differential panel - Blood CBC + DIFF Lab Routine Malignant neoplasm of prostate (HCC) Expected: 05/03/2022, Expires: 07/03/2022 [facility] Work Phone: Comment on above: Expected: 05/03/2022, Expires: 2 Start: 05-03-2022 End: 07-03-2022 Comprehensive metabolic 2000 panel - Serum or Plasma COMP METABOLIC PANEL Lab Routine Malignant neoplasm of prostate (HCC) Expected: 05/03/2022, Expires: 07/03/2022 [facility] Work Phone: Comment on above: Expected: 05/03/2022, Expires: 2 Start: 05-03-2022 End: 07-03-2022 Prostate specific Ag [Mass/volume] in Serum or Plasma PSA/PROSTSPECAG DIAG Lab Routine Malignant neoplasm of prostate (HCC) Expected: 05/03/2022, Expires: 07/03/2022 [facility] Work Phone: Comment on above: Expected: 05/03/2022, Expires: 2 Start: 03-17-2022 Influenza vaccination [facility] Start: 11-02-2021 End: 01-02-2022 CBC W Auto Differential panel - Blood CBC + DIFF Lab Routine Malignant neoplasm of prostate (HCC) Expected: 11/02/2021, Expires: 01/02/2022 [facility] Work Phone: Comment on above: Expected: 11/02/2021, Expires: 2 Start: 11-02-2021 End: 01-02-2022 Comprehensive metabolic 2000 panel - Serum or Plasma COMP METABOLIC PANEL Lab Routine Malignant neoplasm of prostate (HCC) Expected: 11/02/2021, Expires: 01/02/2022 [facility] Work Phone: Comment on above: Expected: 11/02/2021, Expires: 2 Start: 09-14-2021 COVID-19 VACCINE (5 - Booster) COVID-19 VACCINE (5 - Booster) [facility] Start: 08-17-2021 COVID-19 VACCINE (4 - Booster for Moderna series) COVID-19 VACCINE (4 - Booster for Moderna series) [facility] Start: 07-17-2021 ADVANCE DIRECTIVE DISCUSSION ADVANCE DIRECTIVE DISCUSSION [facility] Start: 07-17-2021 DEPRESSION ASSESSMENT DEPRESSION ASSESSMENT [facility] Start: 02-22-2021 COVID-19 VACCINE (3 - Booster for Moderna series) COVID-19 VACCINE (3 - Booster for Moderna series) [facility] Start: 06-07-2015 PNEUMOVAX AGE 65 AND OVER WITH 5YR LOOKBACK (#1) PNEUMOVAX AGE 65 AND OVER WITH 5YR LOOKBACK (#1) [facility] Start: 06-20-2013 Urine microalbumin profile DTAP,TDAP,TD (1 - Tdap) [facility] Start: 08-22-2012 SHINGRIX VACCINE (2 of 3) SHINGRIX VACCINE (2 of 3) [facility] Start: 02-14-1996 SHINGRIX VACCINE (1 of 2) SHINGRIX VACCINE (1 of 2) [facility] Start: 1991 COLOGUARD (FIT-DNA) COLOGUARD (FIT-DNA) [facility] Start: 1991 Colonoscopy COLONOSCOPY [facility] Start: 1991 COLORECTAL CANCER SCREENING COLORECTAL CANCER SCREENING [facility] Start: [address] COLONOGRAPHY [facility] Start: 1991 DIABETES SCREEN DIABETES SCREEN [facility] Start: 1991 FECAL OCCULT BLOOD FECAL OCCULT BLOOD [facility] Start: 1991 SIGMOIDOSCOPY SIGMOIDOSCOPY [facility] Start: 1981 LIPID SCREEN LIPID SCREEN [facility] Start: 02-14-1964 HEPATITIS C SCREENING HEPATITIS C SCREENING [facility] Dermatopathology exam Dermatopat hology exam Pathology and Cytology Timed Neoplasm of unspecified behavior of bone, soft tissue, and skin Release Upon Ordering for 1 Occurrences starting 08/28/2023 [facility] Work Phone: Comment on above: Release Upon Ordering for 1 Occurrences starting 08/28/2023 [facility] Immunizations Immunization Date Immunization Notes Care Provider Iris snider 05-01-2023 influenza, high dose seasonal, preservative-free Jamar Fall Other [facility] Other 04-28-2022 influenza, high-dose , quadrivalent vaccine (FLUZONE HIGH DOSE QUADRIVALENT) [facility] Work Phone: [facility] 04-28-2022 influenza, high dose seasonal, preservative-free Jamar Fall Other [facility] 04-28-2022 influenza virus vaccine, unspecified formulation [facility] Work Phone: [facility] 04-21-2022 COVID-19 booster vaccine, age 12+ yr, bivalent (MODERNA) [facility] Work Phone: [facility] 01-21-2022 COVID-19 Vaccine Moderna - Documentation Purposes Only Jamar Fall Other [facility] 05-17-2021 COVID-19 Vaccine Moderna - Documentation Purposes Only Jamar Fall Other [facility] 04-22-2021 influenza virus vaccine, split virus (incl. purified surface antigen) Jamar Fall Other [facility] Other 04-16-2021 influenza nasal, unspecified formulation Marco A Esqueda MD Work Phone: [facility] 04-16-2021 influenza virus vaccine, unspecified formulation Anthonycindy SCRUGGS [facility] 09-22-2020 COVID-19 Vaccine Moderna - Documentation Purposes Only Jamar Fall Other [facility] 08-26-2020 SARS-CoV-2 (COVID-19 ) Ad26 vaccine, recombinant Anthony KAEL [facility] 08-24-2020 COVID-19 original vaccine, full dose, monovalent (MODERNA) [facility] Work Phone: [facility] 07-17-2020 SARS-CoV-2 (COVID-19 ) mRNA-1273 vaccine Anthony SCRUGGS [facility] Comment on above: Result Comment: pt d oes not know the dates but states that he is fully vaccinated 04-23-2020 influenza virus vaccine, split virus (incl. purified surface antigen) Jamar Fall Other [facility] Other 04-22-2019 influenza virus vaccine, split virus (incl. purified surface antigen) Jamar Juan David Other [facility] Other 04-16-2019 influenza nasal, unspecified formulation Marco A Esqueda MD Work Phone: [facility] 08-20-2018 zoster vaccine recombinant Marco A Esqueda MD Work Phone: [facility] 06-11-2018 zoster vaccine recombinant Marco A Esqueda MD Work Phone: [facility] 04-16-2018 influenza nasal, unspecified formulation Marco A Esqueda MD Work Phone: [facility] 03-27-2018 AS03 adjuvant [facility] Work Phone: [facility] 03-27-2018 influenza virus vaccine, split virus (incl. purified surface antigen) Jamar Fall Other [facility] Other 03-27-2018 Seasonal trivalent influenza vaccine, adjuvanted, preservative free Marco A Esqueda MD Work Phone: [facility] 06-12-2017 pneumococcal polysaccharide vaccine, 23 valent Marco A Esqueda MD Work Phone: [facility] 06-01-2017 pneumococcal polysaccharide vaccine, 23 valent Jamar Fall Other [facility] 06-01-2017 Prevnar 20 Jamar Fall Other [facility] Other 05-31-2017 influenza, injectabl e, quadrivalent, preservative free Marco A Esqueda MD Work Phone: [facility] 04-03-2017 influenza virus vaccine, split virus (incl. purified surface antigen) Jamar Fall Other [facility] Other 04-03-2017 influenza, high dose seasonal, preservative-free Marco A Esqueda MD Work Phone: [facility] 03-23-2017 influenza nasal, unspecified formulation Marco A Esqueda MD Work Phone: [facility] 04-01-2016 influenza virus vaccine, split virus (incl. purified surface antigen) Jamar Fall Other [facility] Other 03-31-2016 influenza nasal, unspecified formulation Marco A Esqueda MD Work Phone: [facility] 05-11-2015 influenza nasal, unspecified formulation Marco A Esqueda MD Work Phone: [facility] 05-11-2015 pneumococcal conjuga te vaccine, 13 valent Marco A Esqueda MD Work Phone: [facility] 04-29-2015 pneumococcal polysaccharide vaccine, 23 valent Marco A Esqueda MD Work Phone: [facility] 06-09-2014 influenza, seasonal, injectable, preservative free Marco A Esqueda MD Work Phone: [facility] 06-19-2013 diphtheria, tetanus toxoids and acellular pertussis vaccine, unspecified formulation Marco A Esqueda MD Work Phone: [facility] 06-19-2013 tetanus and diphther ia toxoids, not adsorbed, for adult use Marco A Esqueda MD Work Phone: [facility] 05-23-2013 influenza nasal, unspecified formulation Marco A Esqueda MD Work Phone: [facility] 04-24-2013 tetanus and diphther ia toxoids, adsorbed, preservative free, for adult use (5 Lf of tetanus toxoid and 2 Lf of diphtheria toxoid) Jamar Fall Other [facility] Other 06-27-2012 zoster vaccine, live Marco A lake MD Work Phone: [facility] 06-11-2012 influenza nasal, unspecified formulation Marco A Esqueda MD Work Phone: [facility] 06-02-2011 influenza nasal, unspecified formulation Marco A Esqueda MD Work Phone: [facility] 06-23-2010 pneumococcal polysaccharide vaccine, 23 valent Jamar Fall Other [facility] Other 06-07-2010 pneumococcal polysaccharide vaccine, 23 valent Marco A Esqueda MD Work Phone: [facility] 06-07-2010 pneumococcal vaccine , unspecified formulation Marco A Esqueda MD Work Phone: [facility] 05-28-2010 influenza nasal, unspecified formulation Marco A Esqueda MD Work Phone: [facility] 01-14-2010 pneumococcal polysaccharide vaccine, 23 valent Jamar Fall Other [facility] Other 05-25-2009 influenza nasal, unspecified formulation Marco A Esqueda MD Work Phone: [facility] 06-09-2008 influenza nasal, unspecified formulation Marco A Esqueda MD Work Phone: [facility] 07-23-2003 influenza virus vaccine, whole virus Marco A Esqueda MD Work Phone: [facility] 01-14-2003 diphtheria, tetanus toxoids and acellular pertussis vaccine, unspecified formulation Jamar Ball Other [facility] Other 01-10-2003 TD(adult) unspecifie d formulation Marco A Esqueda MD Work Phone: [facility] 07-03-2002 influenza nasal, unspecified formulation Marco A Esqueda MD Work Phone: [facility] Payers Date Payer Category Payer Unknown MMO MMO MEDICARE SUPPLEMENT [id number] 2019-Present [phone] [address] [place] [address] Indemnity [id number] 2019 Unknown [id number] 2011 Medicare MEDICARE MEDICAR E A AND B [id number] 2011-Present [phone] [address] [address] [place] [address] Medicare [id number] 2011 Medicare [id number] 1959 Medicare [id number] 1959 Self-pay 1959 Unknown [id number] 1946 Unknown [id number] 1946 Unknown [id number] 1946 Unknown [id number] [id number] 1946 Unknown [id number] [id number] 1946 Unknown [id number] [id number] 1946 Unknown [id number] [id number] 1946 Unknown [id number] [id number] 1946 Unknown [id number] [id number] 1946 Unknown [id number] [id number] 1946 Unknown [id number] [id number] 1946 Unknown [id number] 1946 Unknown [id number] [id number] Unknown [id number] [id number] Unknown [id number] [id number] Unknown [id number] Social History Date Type Detail Facility Start: 11-08-2021 End: 06-04-2023 Tobacco smoking status NHIS Never smoked tobacco [facility] Start: 10-25-2021 End: 08-28-2023 Alcohol intake Current drinker of alcohol (finding) [facility] Start: 08-19-2014 History SDOH Alcohol Comment 1 day/wk [facility] Start: 1945 Sex Assigned At Not on file [facility] Start: 10-18-2021 End: 05-12-2022 Exposure to SARS-CoV-2 (event) Not sure [facility] Tobacco smoking status Never [facility] Start: 02-02-2023 End: 08-28-2023 Sex Assigned At Male [facility] Start: 1945 Sex Assigned At Male C [facility] Start: 01-12-2018 End: 06-04-2023 Tobacco use and exposure Smokeless tobacco non-user [facility] Start: 02-02-2023 End: 08-28-2023 History of Social function [facility] Start: 02-11-2022 Gender identity Identifies as male gender (finding) [facility] Start: 02-11-2022 Sexual orientation Heterosexual (ce coburn) [facility] How often to you hav e a [...] CARISSAF History of tobacco use Passive smoker [facility] Medical Equipment Procedure Code Equipment Code Equipment Origin al Text Equipment Identifier Dates Start: 10-26-2021 End: 05-12-2022 Comment on above: 1 Each once daily. T o test blood sugars 1 Each once daily. T o test blood sugar Functional Status Date Assessment Result Facility 04-17-2023 Functional Status N/A [facility] 05-13-2022 Functional Status N/A [facility] Clinical Notes 10-25-2021 to 08-28-2023 Long Boo, DIRECTOR MEDICAL AFFAIRS-GARMENT WORKER - 08/28/2023 11:25 AM EST Note Date [...] limited to risks of scarring, darker or door liner pigmentary changes, recurrence, incomplete removal and infection. [...] results, 6 months documented in this encounter [facility] 08-24-2023 Evaluation note Encounter Date Diagnosis Assessment [...] use, the patient reduces the risk for SD, CVA, HTN, cardiac dysrhythmias and sudden cardiac [...] retention cyst and frontal sinus mass benign [facility] Other 01-19-2024 Evaluation note* Encounter Date Diagnosis Assessment Notes Treatment Notes Treatment Clinical Notes Jul, Pancreatic mass (ICD-10 - K86.89) MRCP: 4cm mass - 2022 - previously completed EUS bx at [facility] - stable in size from 2021 [facility] Other 01-18-2024 NoteHNO ID: [id number] Author: MARCO A ESQUEDA MD Service: ? Author Type: Physician Type: Progress Notes Filed: 08/04/2023 06:33 Note Text: PATIENT NAME: Pablo Felix DATE: 08/03/2023 PRIMARY CARE PHYSICIAN: Dr. Jamar Fall OTHER PHYSICIANS: Dr. Anthony Scruggs, Dr. Khan, [facility] Cardiology Portions of this encounter note have [...] mg 24 hr tablet Take by mouth. 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 Left base margin positive for neoplasm. Seminal vesicles with no diagnostic abnormality. 2 resected lymph nodes negative for neoplasm. LABS: Hemoglobin (g/dL) Date Value 07/27/2023 11.8 05/08/2018 12.8 Hematocrit (%) Date Value 07/27/2023 34.8 05/08/2018 36.8 WBC (k/uL) Date Value 07/27/2023 6.43 05/08/2018 5.63 Platele (more content not included)...[facility]12-07-2023 Note [facility] Cardiology Clinic Note Chief Complaint: Patient [...] stress test Assessment: coronary arteriosclerosis -s/p CABG 2015 -[place] Stress test 09/09/2020: no ischemia, EF [...] should problems arise Bridger Mulligan MD, MPH, [facility], [facility], [facility] Interventional Cardiology Pager Email: [email or web address]11-14-2023 Evaluation note* Encounter Date Diagnosis Assessment Notes [...] ENT since scheduling appt for sinus mass [facility] Other [id number] Evaluation note* Encounter Date Diagnosis Assessment Notes [...] malignant neoplasm of bone (ICD-10 - C79.51) [facility] Other 10-12-2023 NoteHNO ID: [id number] Author: Christo Howard APRN.GARMENT WORKER Service: ? Author Type: Nurse Practitioner Type: Progress Notes Filed: 04/27/2023 11:16 AM Note Text: PATIENT NAME: Pablo Felix DATE: 04/27/2023 PRIMARY CARE PHYSICIAN: Dr. Jamar Fall OTHER PHYSICIANS: Dr. Anthony Scruggs, Dr. Khan, [facility] Cardiology Portions of this encounter note have [...] mg 24 hr tablet Take by mouth. 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 [...] 05/08/2018 168 PSA 01/22/20 (more content not included)...[facility]10-12-2023 History of Present illness Narrative* Christo Howard, ROCHELLE.GARMENT WORKER - 04/27/2023 10:00 AM EDT PATIENT NAME: Pablo Felix DATE: 04/27/2023 PRIMARY CARE PHYSICIAN: Dr. Jamar Fall OTHER PHYSICIANS: Dr. Anthony Scruggs, Dr. Khan, [facility] Cardiology Portions of this encounter note have [...] mg 24 hr tablet Take by mouth. 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 [...] 04/24/2023 0.12 RADIOLOGY/OTHER STUDIES: 11/05/2021 CT chest/abdomen/pelvis ([facility]) Several sclerotic lesions consistent with metastatic disease. No evidence of visceral organ involvement or lymphadenopathy. 11/05/2021 Bone scan ([facility]) Multifocal osseous metastasis including the left femur at the lesser trochanter, right pubis symphysis, multiple ribs bilaterally. 01/22/2018 Nuclear bone scan ([facility]) New focal increased activity left frontal bone, left T8 vertebral body. 01/22/2018 MRI pelvis ([facility]) 4.5 cm area of T2 signal in the prostate bed. 07/24/2014 CT abdomen/pelvis ([facility]) Diffuse prostatic enlargement with indentation of the bladder base. Incidental 2.5 x 1 cm exophytic hypodense lesion adjacent to the pancreatic body. ASSESSMENT/PLAN: 1. Metastatic prostate cancer (HCC) - ICD9: 185, ICD10: C61 (primary diagnosis) The patient was diagnosed with early-stage high-grade prostate cancer in June 2014 (TRUS [id number]). He underwent a radical prostatectomy on 11/05/2014. [...] suppressed at <12. Bone scan obtained at [facility] 11/05/2021 revealed multiple bone metastases. 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 Stable on current medications. Continue per PCP/cardiology. [...] monitor with repeat CT scan. Christo Howard APRN.CNP CC: Dr. Anthony Scruggs I spent a total of 30 minutes on the date of the service which included preparing to see the patient, lzdd-vu-piky patient care, completing clinical documentation, obtaining and/or reviewing separately obtained history, performing a medically appropriate examination, counseling and educating the pat ient/family/caregiver, ordering medications, tests, or procedures, independently interpreting results (not separately reported), and communicating results to the patient/family/caregiver. documented in this encounterPromedica Defiance [facility]10-03-2023 Evaluation note* Encounter Date Diagnosis Assessment Notes Treatment Notes Treatment Clinical Notes Apr, Pancreatic mass (ICD-10 - K86.89) [facility] Other [id number] Hospital Discharge instructions Patient Education 04/17/2023 09:18:19 [...] under a microscope. This is called the Groom score and the total score can range from 6 10, indicating how likely it is that the cancer will spread (metastasize) to other parts of the body. The higher the score, the greater thelikelihood that the cancer will spread. Groom 6 or lower: This indicates that the cancer cells look similar to normal prostate cells (well differentiated). Groom 7: This indicates that the cancer cells look somewhat similar to normal prostate cells (moderately differentiated). Groom 8, 9, or 10: This indicates that [...] stress of having cancer. General instructions Take xags-kyt-wzcpngr and prescription medicines only as told by your health care provider. If you have to go to the hospital, notify your cancer specialist (oncologist). Keep all follow-up visits. This is important. Where to find more information [employer]: www.cancer.org [employer]: www.cancer.net National Cancer [place]: www.cancer.gov Contact a health care provider if: [...] provider. Document Revised: 09/29/2021 Document Reviewed: 09/29/2021 [employer] Patient Education 2022 Perk. Follow Up Care 10/28/2022 08:37:57 With:KAEL JAMES, Anthony Lee, URL Address: [facility] [address] [place] [address]- [phone] When: Unknown Comments:6 mos w/ PSA (and possible Lupron) [facility] 09-27-2023 Evaluation note* Encounter Date Diagnosis Assessment Notes Treatment Notes Treatment Clinical Notes Mar, Pancreatic mass (ICD-10 - K86.89) [facility] Other 09-20-2023 Evaluation note* Encounter Date Diagnosis Assessment Notes Treatment Notes Treatment Clinical Notes Mar, Right upper quadrant abdominal pain (ICD-10 - R10.11) Diet instructions Lab to r/o acute infection, cholecystitis, pancreatitis GBUS vs CT abd based on results BLand, low fat diet Mar, Nausea (ICD-10 - R11.0) [place] , small/frequent feedings. Pepcid, Prilosec, Tums as [...] Microalbumin, Dilated eye exam and Foot exam [facility] Other 08-30-2023 Evaluation note* Encounter Date Diagnosis [...] use, the patient reduces the risk for SD, CVA, HTN, cardiac dysrhythmias and sudden cardiac [...] exercise for 30 minutes, 3-5 times weekly. [facility] Other 07-23-2023 Evaluation note* Encounter Date Diagnosis Assessment Notes Treatment Notes Treatment Clinical Notes Jan, Left bundle-branch block, unspecified (ICD-10 - I44.7) [facility] Other 07-20-2023 NoteHNO ID: [id number] Author: Marco A Esqueda MD Service: ? Author Type: Physician Type: Progress Notes Filed: 02/05/2023 6:57 AM Note Text: PATIENT NAME: Pablo Felix DATE: 02/02/2023 PRIMARY CARE PHYSICIAN: Dr. Jamar Fall OTHER PHYSICIANS: Dr. Anthony Scruggs, Dr. Khan, [facility] Cardiology Portions of this encounter note have [...] mg 24 hr tablet Take by mouth. 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 Left base margin positive for neoplasm. Seminal vesicles with no diagnostic abnormality. 2 resected lymph nodes negative for neoplasm. LABS: Hemoglobin (g/dL) Date Value 02/02/2023 12.0 05/08/2018 12.8 Hematocrit (%) Date Value 02/02/2023 35.5 05/08/2018 36.8 WBC (k/uL) Date Value 02/02/2023 7.27 05/08/2018 5.63 Platelet Count (k/uL) Date Value 02/02/2023 197 05/08/2018 (more content not included)...[facility]07-20-2023 History of Present illness Narrative* Marco A Esqueda MD - 02/02/2023 7:38 AM EDT PATIENT NAME: Pablo Felix DATE: 02/02/2023 PRIMARY CARE PHYSICIAN: Dr. Jamar Fall OTHER PHYSICIANS: Dr. Anthony Scruggs, Dr. Khan, [facility] Cardiology Portions of this encounter note have [...] mg 24 hr tablet Take by mouth. 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 [...] 10/25/2022 0.13 RADIOLOGY/OTHER STUDIES: 11/05/2021 CT chest/abdomen/pelvis ([facility]) Several sclerotic lesions consistent with metastatic disease. No evidence of visceral organ involvement or lymphadenopathy. 11/05/2021 Bone scan ([facility]) Multifocal osseous metastasis including the left femur at the lesser trochanter, right pubis symphysis, multiple ribs bilaterally. 01/22/2018 Nuclear bone scan ([facility]) New focal increased activity left frontal bone, left T8 vertebral body. 01/22/2018 MRI pelvis ([facility]) 4.5 cm area of T2 signal in the prostate bed. 07/24/2014 CT abdomen/pelvis ([facility] Diffuse prostatic enlargement with indentation of the bladder base. Incidental 2.5 x 1 cm exophytic hypodense lesion adjacent to the pancreatic body. ASSESSMENT/PLAN: 1. Metastatic prostate cancer (HCC) - ICD9: 185, ICD10: C61 (primary diagnosis) The patient was diagnosed with early-stage high-grade prostate cancer in June 2014 (TRUS [id number]/02/2014). He underwent a radical prostatectomy on 11/05/2014. [...] suppressed at <12. Bone scan obtained at [facility] 11/05/2021 revealed multiple bone metastases. 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 Stable on current medications. Continue per PCP/cardiology. [...] CC: Dr. Anthony Scruggs documented in this encounterPromedica Defiance Regional Hospital04-27-2023 NoteHNO ID: [id number] Author: Christo Howard APRN.GARMENT WORKER Service: ? Author Type: Nurse Practitioner Type: Progress Notes Filed: 11/10/2022 11:21 AM Note Text: PATIENT NAME: Pablo Felix DATE: 11/10/2022 PRIMARY CARE PHYSICIAN: Dr. Jamar Fall OTHER PHYSICIANS: Dr. Anthony Scruggs, Dr. Khan, [facility] Cardiology Portions of this encounter note have [...] mg 24 hr tablet Take by mouth. 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 Left base margin positive for neoplasm. Seminal vesicles with no diagnostic abnormality. 2 resected lymph node (more content not included)...[facility] 11-10-2022 History of Present illness Narrative* Christo Howard APRN.GARMENT WORKER - 11/10/2022 10:00 AM EDT PATIENT NAME: Pablo Felix DATE: 11/10/2022 PRIMARY CARE PHYSICIAN: Dr. Jamar Fall OTHER PHYSICIANS: Dr. Anthony Scruggs, Dr. Khan, [facility] Cardiology Portions of this encounter note have [...] mg 24 hr tablet Take by mouth. 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 [...] PSA 0.13 RADIOLOGY/OTHER STUDIES: 11/05/2021 CT chest/abdomen/pelvis ([facility]) Several sclerotic lesions consistent with metastatic disease. No evidence of visceral organ involvement or lymphadenopathy. 11/05/2021 Bone scan ([facility]) Multifocal osseous metastasis including the left femur at the lesser trochanter, right pubis symphysis, multiple ribs bilaterally. 01/22/2018 Nuclear bone scan ([facility]) New focal increased activity left frontal bone, left T8 vertebral body. 01/22/2018 MRI pelvis ([facility]) 4.5 cm area of T2 signal in the prostate bed. 07/24/2014 CT abdomen/pelvis ([facility]) Diffuse prostatic enlargement with indentation of the bladder base. Incidental 2.5 x 1 cm exophytic hypodense lesion adjacent to the pancreatic body. ASSESSMENT/PLAN: 1. Metastatic prostate cancer (HCC) - ICD9: 185, ICD10: C61 (primary diagnosis) The patient was diagnosed with early-stage high-grade prostate cancer in June 2014 (TRUS [id number]/02/2014). He underwent a radical prostatectomy on 11/05/2014. [...] suppressed at <12. Bone scan obtained at [facility] 11/05/2021 revealed multiple bone metastases. 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 Stable on current medications. Continue per PCP/cardiology. [...] monitor with repeat CT scan. Christo Howard APRN.GARMENT WORKER CC: Dr. Anthony Scruggs I spent a total of 30 minutes on the date of the service which included preparing to see the patient, xyod-kl-igje patient care, completing clinical documentation, obtaining and/or reviewing separately obtained history, performing a medically appropriate examination, counseling and educating the pat ient/family/caregiver, ordering medications, tests, or procedures, independently interpreting results (not separately reported), and communicating results to the patient/family/caregiver. documented in this encounterPromedica Defiance [facility] Hospital03-03-2023 Evaluation note* Encounter Date Diagnosis Assessment Notes [...] injection w/ Kenalog, may increase BS slightly [facility] Other 02-24-2023 Evaluation note* Encounter Date Diagnosis [...] use, the patient reduces the risk for SD, CVA, HTN, cardiac dysrhythmias and sudden cardiac [...] Lupron along w/ additional oral chemotherapy from [facility] Oncology. Also receiving Boniva Aug, Other Personalized [...] reviewed and amended by provider signed below. [facility] Other 01-26-2023 NoteHNO ID: [id number] Author: Marco A Esqueda MD Service: ? Author Type: Physician Type: Progress Notes Filed: 08/12/2022 7:59 AM Note Text: PATIENT NAME: Pablo Felix DATE: 08/11/2022 PRIMARY CARE PHYSICIAN: Dr. Jamar Fall OTHER PHYSICIANS: Dr. Anthony Scruggs, Dr. Khan, [facility] Cardiology Portions of this encounter note have [...] mg 24 hr tablet Take by mouth. 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 [...] 0.03 05/12/2022 PSA 0.12 (more content not included)...[facility]01-26-[facility] History of Present illness Narrative* Marco A Esqueda MD - 08/11/2022 7:42 AM EST PATIENT NAME: Pablo Felix DATE: 08/11/2022 PRIMARY CARE PHYSICIAN: Dr. Jamar Fall OTHER PHYSICIANS: Dr. Anthony Scruggs, Dr. Khan, [facility] Cardiology Portions of this encounter note have [...] mg 24 hr tablet Take by mouth. 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 [...] 08/11/2022 PSA RADIOLOGY/OTHER STUDIES: 11/05/2021 CT chest/abdomen/pelvis ([facility]) Several sclerotic lesions consistent with metastatic disease. No evidence of visceral organ involvement or lymphadenopathy. 11/05/2021 Bone scan ([facility]) Multifocal osseous metastasis including the left femur at the lesser trochanter, right pubis symphysis, multiple ribs bilaterally. 01/22/2018 Nuclear bone scan ([facility]) New focal increased activity left frontal bone, left T8 vertebral body. 01/22/2018 MRI pelvis ([facility]) 4.5 cm area of T2 signal in the prostate bed. 07/24/2014 CT abdomen/pelvis ([facility]) Diffuse prostatic enlargement with indentation of the bladder base. Incidental 2.5 x 1 cm exophytic hypodense lesion adjacent to the pancreatic body. ASSESSMENT/PLAN: 1. Metastatic prostate cancer (HCC) - ICD9: 185, ICD10: C61 (primary diagnosis) The patient was diagnosed with early-stage high-grade prostate cancer in June 2014 (TRUS [id number]/02/2014). He underwent a radical prostatectomy on 11/05/2014. Pathology consistent with stage IIIC (pT2b, N0, M0), Groom 5+4 equal 9. Postop the patient's PSA [...] suppressed at <12. Bone scan obtained at [facility] 11/05/2021 revealed multiple bone metastases. 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 Stable on current medications. Continue per PCP/cardiology. [...] CC: Dr. Anthony Scruggs documented in this encounterPromedica Defiance Regional Hospital01-05-2023 NotePROCEDURE: XR SHOULDER LT 2V or > [...] Electronically authenticated by: CYNTHIA TORRES Date: 2022-07-21 15:46[facility]01-05-2023 Evaluation note* Encounter Date Diagnosis Assessment Notes Treatment Notes Treatment Clinical Notes Jul, Cervical spondylosis with radiculopathy (ICD-10 - M47.22) ROM exercises, heat/ice and Tylenol 1000mg tid. Initiated Tramadol w/ caution, no driving, may cause sedation. Jul, Acute pain of left shoulder (ICD-10 - M25.512) ROM exercises, Tylenol and Tramadol as needed. Jul, Annual physical exam (ICD-10 - Z00.00) [facility] Other 10-28-2022 Hospital Discharge instructions Patient Education [...] who: Are older than age 65. Are -Beninese. Are obese. Have a family history of [...] cells. Follow these instructions at home: Take mpfq-ovv-ojwuvlc and prescription medicines only as told by [...] 07/03/2006 Document Revised: 06/15/2018 Document Reviewed: 03/13/2017 [employer] Patient Education 2019 Perk. Follow Up Care 11/08/2021 14:14:20 With:KAEL JAMES, Anthony Lee, URL Address: [address] [place] [address] [place] [address]- When: Unknown [facility] 10-27-2022 Nurse Note* Sheela Toney - 05/12/2022 10:43 AM EDT AUA=2 documented in this encounterPromedica Defiance Regional Hospital10-27-2022 History of Present illness Narrative* G Franky Khan MD - 05/12/2022 10:41 AM EDT Radiation Oncology - Follow Up Note PATIENT NAME: Pablo Felix PATIENT DIAGNOSIS: Prostate adenocarcinoma, initial clinical stage II, initial PSA 1.07, biopsy Lucrecia score 9(4,5), s/p prostatectomy for 11/05/14 pathologic stage IIIC [id number], Groom 9 (5, 4) now with rising PSA [...] Each once daily. To test blood sugar Evjexizjlrkdq-Mwwpyhim-Nefkeh (MULTIVITAMIN 50 PLUS) tab Take 1 tablet [...] clinical stage II, initial PSA 1.07, biopsy Lucrecia score 9(4,5), s/p prostatectomy for 11/05/14 pathologic stage IIIC [id number], Lucrecia 9 (5, 4) withrising PSA, subsequently status [...] Zach Khan MD cc: Jamar Fall MD ([facility]) Portions of the above note extracted and edited from previous visit as well as active information included in the EMR. documented in this encounterPromedica Defiance Regional Hospital10-17-2022 Miscellaneous Notes* Telephone Encounter - Sheela Toney - 05/02/2022 10:48 AM EDT Patient coming in on 05/12/22 for follow up with labs. Please add lab orders. Thanks, Sheela Toney MA documented in this encounterPromedica Defiance [facility] Hospital08-04-2022 History of Present illness Narrative* Marco A Esqueda MD - 02/17/2022 7:51 AM EDT PATIENT NAME: Pablo Felix DATE: 02/17/2022 PRIMARY CARE PHYSICIAN: Jamar Fall, OTHER PHYSICIANS: Dr. Anthony Scruggs, Dr. Khan, [facility] Cardiology Portions of this encounter note have [...] Each once daily. 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 [...] PSA 0.14 RADIOLOGY/OTHER STUDIES: 11/05/2021 CT chest/abdomen/pelvis ([facility]) Several sclerotic lesions consistent with metastatic disease. No evidence of visceral organ involvement or lymphadenopathy. 11/05/2021 Bone scan ([facility]) Multifocal osseous metastasis including the left femur at the lesser trochanter, right pubis symphysis, multiple ribs bilaterally. 01/22/2018 Nuclear bone scan ([facility]) New focal increased activity left frontal bone, left T8 vertebral body. 01/22/2018 MRI pelvis ([facility]) 4.5 cm area of T2 signal in the prostate bed. 07/24/2014 CT abdomen/pelvis ([facility]) Diffuse prostatic enlargement with indentation of the bladder base. Incidental 2.5 x 1 cm exophytic hypodense lesion adjacent to the pancreatic body. ASSESSMENT/PLAN: 1. Metastatic prostate cancer (HCC) - ICD9: 185, ICD10: C61 (primary diagnosis) The patient was diagnosed with early-stage high-grade prostate cancer in June 2014 (TRUS [id number]/02/2014). He underwent a radical prostatectomy on 11/05/2014. Pathology consistent with stage IIIC (pT2b, N0, M0), Groom 5+4 equal 9. Postop the patient's PSA [...] at <12. Staging scans were obtained at [facility] on 11/05/2021. 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 Stable on current medications. Continue per PCP/cardiology. [...] CC: Dr. Anthony Scruggs documented in this encounterPromedica Defiance Regional Hospital05-23-2022 Miscellaneous Notes* Telephone Encounter - Clementine Aguilar [...] that he has the phone number to [facility]. No additional questionsnoted. Clementine Aguilar RN documented in this encounterPromedica Defiance Regional Hospital04-28-2022 History of Present illness Narrative* Marco A Esqueda MD - 11/11/2021 7:42 AM EDT PATIENT NAME: aPblo Felix DATE: 11/11/2021 PRIMARY CARE PHYSICIAN: Jamar Fall DO OTHER PHYSICIANS: Dr. Anthony Scruggs, Dr. Khan, [facility] Cardiology Portions of this encounter note have been copied from my note from 10/28/2021 and has been updated where appropriate, and reflect my current medical decision making from today. CC: This is a 76 year old male with recently diagnosed metastatic prostate cancer, seen for scheduled follow-up. INTERIM HISTORY: Since the patient's initial visit here he underwent staging scans at [facility] on 11/05/2021. Bone scan revealed multiple areas [...] Each once daily. 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 [...] PSA 2.64 RADIOLOGY/OTHER STUDIES: 11/05/2021 CT chest/abdomen/pelvis ([facility]) Several sclerotic lesions consistent with metastatic disease. No evidence of visceral organ involvement or lymphadenopathy. 11/05/2021 Bone scan ([facility]) Multifocal osseous metastasis including the left femur at the lesser trochanter, right pubis symphysis, multiple ribs bilaterally. 01/22/2018 Nuclear bone scan ([facility]) New focal increased activity left frontal bone, left T8 vertebral body. 01/22/2018 MRI pelvis ([facility]) 4.5 cm area of T2 signal in the prostate bed. 07/24/2014 CT abdomen/pelvis ([facility]) Diffuse prostatic enlargement with indentation of the bladder base. Incidental 2.5 x 1 cm exophytic hypodense lesion adjacent to the pancreatic body. ASSESSMENT/PLAN: 1. Metastatic prostate cancer (HCC) - ICD9: 185, ICD10: C61 (primary diagnosis) The patient was diagnosed with early-stage high-grade prostate cancer in June 2014 (TRUS [id number]/02/2014). He underwent a radical prostatectomy on 11/05/2014. Pathology consistent with stage IIIC (pT2b, N0, M0), Groom 5+4 equal 9. Postop the patient's PSA [...] at <12. Staging scans were obtained at [facility] on 11/05/2021. 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 Stable on current medications. Continue per PCP/cardiology. [...] CC: Dr. Anthony Scruggs documented in this encounterPromedica Defiance Regional Hospital04-27-2022 Miscellaneous Notes* Telephone Encounter - Clementine Aguilar RN - 11/10/2021 3:03 PM EDT Pt reports his Enzalutamide was delivered. Will start this evening. Clementine Aguilar RN documented in this encounterPromedica Defiance Regional Hospital04-26-2022 Miscellaneous Notes* Telephone Encounter - Clementnie Aguilar RN - 11/09/2021 2:31 PM EDT Per pt, his Enzalutamide is scheduled to arrive tomorrow morning. Patient started/will start taking Enzalutamide on 11/10/21. Clementine Aguilar RN documented in this encounterPromedica Defiance Regional Hospital04-25-2022 Hospital Discharge instructions Patient Education 11/08/2021 14:10:09 [...] who: Are older than age 65. Are -[place]. Are obese. Have a family history of [...] cells. Follow these instructions at home: Take qeic-rki-ianfaez and prescription medicines only as told by [...] 07/03/2006 Document Revised: 06/15/2018 Document Reviewed: 03/13/2017 [employer] Patient Education 2020 Perk. Follow Up Care 08/23/2021 13:26:07 With:KAEL JAMES, Anthony Lee, URL Address: [facility] [address] [place] [address]- [phone] When:05/10/2022 [facility] [place] 04-21-2022 Miscellaneous Notes* Telephone Encounter - Clementine Aguilar RN - 11/04/2021 2:53 PM EDT Pt would like to get the 4th Covid vaccine when it's due. Dr Esqueda notified and gives the ok to proceed when due. Pt notified and verbalizes understanding. Clementine Aguilar RN documented in this encounterPromedica Defiance Regional Hospital04-21-2022 History of Present illness Narrative* Clementine Aguilar [...] Information handout: Enzalutamide, Specialty Pharmacy Information : [facility] phone numbers: Yes [...] encounter: 5 minutes Clementine Aguilar RN * Aida Luo [facility] - 11/04/2021 2:49 PM EDT Images from the original note were not included. [facility] Department of Pharmacy Oncology Pharmacy Medication [...] Each once daily. To test blood sugar Iduyfooinzbly-Hhyytimk-Ajhvsr (MULTIVITAMIN 50 PLUS) tab Take 1 tablet [...] NA - Followed up with [facility] for delivery of Free Xtandi Readiness [...] (15 minute increments) with the patient Rubin RodneycindyNavdeep documented in this encounterPromedica Defiance Regional Hospital04-21-2022 Miscellaneous Notes* Telephone Encounter - Aida FergusonJose Alejandrocindy [facility] - 11/04/2021 10:54 AM EDT Confirmed with [employer] approval date 11/01/21 and that the specialty pharmacy, [facility], will reach out to Mr Felix 3-5 business days from approval date. If he does not hear from them by 11/10/21 we should call [facility] @ option 2. I informed Mr Felix of this, he has an appt 11/12/21 and said if he has not heard from them by then he will get their phone number from us. Rubin FergusonJose AlejandrocindyNavdeep documented in this encounterPromedica Defiance [facility] Hospital04-19-2022 Miscellaneous Notes* Telephone Encounter - Jennifer Garcia Pss - 11/02/2021 12:23 PM EDT Called pt, scheduled for education (11/04) @ 900am. * Telephone Encounter - Clementine Aguilar RN - 11/02/2021 11:57 AM EDT Clerical: Please schedule pt for education. Thank you! Clementine Aguilar RN * Telephone Encounter - Aida Luo RP - 11/02/2021 11:41 AM EDT Approved for free Xtandi until 07/16/22. Spoke to patient and let him know to be expecting this call. [facility] will call patient to set up delivery for all fills. I do not see where he has had chemo education yet. Alba does he need to be set up with you? Thanks Rubin Luo RP * Telephone Encounter - Andreina Castillo RP - 11/01/2021 10:55 AM EDT Patient called today. We completed a conference call with [facility] - they were ableto obtain consent and start his benefits investigations and we should hear back by later today or tomorrow. * Telephone Encounter - Aida Luo RP - 10/29/2021 3:38 PM EDT Permission granted [...] We will proceed free drug application through [employer] Pharmacy to reach out to patient 10/29/2021 to notify. Brina Wang RPh * Telephone Encounter - Brina Wang RPh - 10/28/2021 3:08 PM EDT Ambulatory Pharmacy Prior Authorization Note Provider Intervention Required?: No- Pharmacy completed on your behalf. Drug: Xtandi Cover My Meds Carter: [id number] Determination: Approved Prior Authorization/Case #: [id number] Prior Authorization Expiration: 10/28/2022 Time to PA Submission in CMM: 15 min Time to PA Determination in CMM: Same day Additional Information: Co-Pay $3,111.12 For questions relating to this submission, please contact [facility] at [phone] documented in this encounterPromedica Defiance Regional Hospital04-19-2022 Miscellaneous Notes* Telephone Encounter - Zohra Avila PA-C - 11/02/2021 12:00 PM EDT CBC and CMP orders placed Zohra Avila PA-C * Telephone Encounter - Katie Rosen MA - 11/02/2021 11:57 AM EDT Patient has an appt on 11/11/21. Would you like labs, if so place orders. Katie Rosen MA documented in this encounterPromedica Defiance [facility] Hospital04-18-2022 Miscellaneous Notes* Telephone Encounter - Clementine Aguilar [...] assistance program. Thanks, BRM documented in this encounterPromedica Defiance Regional Hospital04-14-2022 Miscellaneous Notes* Telephone Encounter - Clementine Aguilar RN - 10/28/2021 1:12 PM EDT Voicemail message received from Sandra @ [facility]. Reports the pt's 1st dose of Lupron was given on 02/12/2018. Dr Esqueda notified. Clementine Aguilar RN * Telephone Encounter - Clementine Aguilar RN - 10/28/2021 12:[address] Esqueda requests that we contact Dr Scruggs' office for pt's Lupron start date. Call placed to [facility]. No answer. Message left requesting call back. Clementine Aguilar RN documented in this encounterPromedica Defiance Regional Hospital04-14-2022 Miscellaneous Notes* Telephone Encounter - Clementine Aguilar RN - 10/28/2021 1:12 PM EDT This encounter was opened in error. [email or web address]@ documented in this encounterPromedica Defiance Regional Hospital04-11-2022 Miscellaneous Notes* Telephone Encounter - Christo Howard APRN.CNP - 10/25/2021 4:05 PM EDT Hold off for now. Christo Howard APRN.ALEXA * Telephone Encounter - Katie Rosen MA - 10/25/2021 11:01 AM EDT If patient needs labs, please sign/place orders for 10/28/21. Thanks. Katie Rosen MA documented in this encounterPromedica Defiance [facility] HospitalEvaludel[facility] + [facility] Future Appointments Appointment Date:05/13/2022 08:45:00 AM Scheduled Provider:Anthony SCRUGGS MD Location:[facility] Appointment Type:URO Office Visit Diagnostic Tests Pending * PSA Total 11/08/21 Future Scheduled Tests Laboratory* Basic Metabolic Panel 09/20/21 [facility] evaluation + Plan note Future Appointments Appointment Date:10/28/2022 08:00:00 AM Scheduled Provider:Anthony SCRUGGS MD Location:[facility] Appointment Type:URO Office Visit Diagnostic Tests Pending * PSA Total 09/14/22 Future Scheduled Tests Laboratory* Basic Metabolic Panel 09/20/21 [facility] evaluation + Plan note Future Appointments Appointment Date:10/20/2023 08:45:00 AM Scheduled Provider:Anthony SCRUGGS MD Location:[facility] Appointment Type:URO Office Visit Diagnostic Tests Pending * PSA Total 04/17/23 [facility] evaluation note* Diagnosis OPENED IN ERROR- Primary To allow closing an encounter opened in error (used in SmartSet) documented in this encounter [facility] note* Diagnosis Malignant neoplasm of prostate (HCC)- Primary Malignant neoplasm of prostate [facility]* Diagnosis Malignant neoplasm of prostate (HCC)- Primary Malignant neoplasm of prostate documented in this encounter [facility] note* Diagnosis Malignant neoplasm of prostate (HCC)- Primary Malignant neoplasm of prostate 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 documented in this encounter [facility] note* Diagnosis Malignant neoplasm of prostate (HCC)- Primary Malignant neoplasm of prostate documented in this encounter [facility] note* Diagnosis Malignant neoplasm of prostate (HCC)- Primary Malignant neoplasm of prostate 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 documented in this encounter [facility] note* Diagnosis Malignant neoplasm of prostate (HCC)- Primary Malignant neoplasm of prostate documented in this encounter [facility] note* Diagnosis Malignant neoplasm of prostate (HCC)- Primary Malignant neoplasm of prostate documented in this encounter [facility] note* Diagnosis Malignant neoplasm of prostate (HCC)- Primary Malignant neoplasm of prostate documented in this encounter [facility] note* Diagnosis Malignant neoplasm of prostate (HCC)- Primary Malignant neoplasm of prostate documented in this encounter [facility] note* Diagnosis Malignant neoplasm of prostate (HCC)- Primary Malignant neoplasm of prostate 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, unspecified vessel or lesion type Essential hypertension Unspecified essential hypertension Type 2 diabetes mellitus without complication, without long-term current use of insulin (HCC) documented in this encounter [facility] noteNo [employer] Other Evaluation note* Diagnosis Malignant neoplasm of prostate (HCC)- Primary Malignant neoplasm of prostate Coronary artery disease involving [place] heart without angina pectoris, unspecified vessel or lesion type Essential hypertension Unspecified essential hypertension Type 2 diabetes mellitus without complication, without long-term current use of insulin (HCC) documented in this encounter [facility] note* Diagnosis Malignant neoplasm of prostate (HCC)- Primary Malignant neoplasm of prostate documented in this encounter [facility] note* Diagnosis Malignant neoplasm of prostate (HCC)- Primary Malignant neoplasm of prostate documented in this encounter [facility] note* Diagnosis Malignant neoplasm of prostate (HCC)- Primary Malignant neoplasm of prostate Coronary artery disease involving [place] heart without angina pectoris, unspecified vessel or lesion type Essential hypertension Unspecified essential hypertension Type 2 diabetes mellitus without complication, without long-term current use of insulin (HCC) documented in this encounter [facility] note* Diagnosis Neoplasm of unspecified behavior [...] [place] 08/2015 Hospitalization History see surgical hx [facility] Other History general Narrative - Reported* Type [...] [place] 08/2015 Hospitalization History see surgical hx [facility] Other Hospital course Narrative No data available for this section [facility] progress note No data available for this section [facility] Medications Administered Section Inactive Administered Medications - up to 3 most recent administrations Medication Order MAR Action Action Date Dose Rate Site denosumab 120 mg injection (XGEVA) 120 mg, SUBCUTANEOUS, ONCE, 1 dose, On Mon11/18/21 at 1100, REFRIGERATE Given 11/18/2021 10:47 AM [...] Referral Specialty Diagnoses / Procedures Referred By Contac t Referred To Contact Diagnoses Actinic keratosis Long Boo, DIRECTOR MEDICAL AFFAIRS-GARMENT WORKER [address] [place] [address] Referral ID Status Reason Start Date Expiration Date V isits Requested Visits Authorized [id number] Pending Review 1 1 Reason *FU 06/06 Right fr ontal sinus mass and cerumen impaction Diagnosis 1 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) Diagnosis 2 Impacted cerumen of right ear (H61.21) Referral Organization [facility] Referring Provider First Name Jamar Referring Provider Last Name Juan David Referring Provider Specialty Internal Me shaine Referred Organization [facility] Referred Provider DahliaEmelina Referred Address ,[place], [place],[address] Referred Provider Specialty Ear, Nose an d [...] or prosecute any alcohol or drug abuse patient.[facility] HospitalIn the event this information is protected by the Federal Confidentiality of Alcohol and Drug Abuse Patient Records regulations: The Federal rules restrict any use of the information to criminally investigate or prosecute any alcohol or drug abuse patient.[facility] HospitalIn the event this information is protected by the Federal Confidentiality of Alcohol and Drug Abuse Patient Records regulations: The Federal rules restrict any use of the information to criminally investigate or prosecute any alcohol or drug abuse patient.[facility] HospitalIn the event this information is protected by the Federal Confidentiality of Alcohol and Drug Abuse Patient Records regulations: The Federal rules restrict any use of the information to criminally investigate or prosecute any alcohol or drug abuse patient.[facility] HospitalIn the event this information is protected by the Federal Confidentiality of Alcohol and Drug Abuse Patient Records regulations: The Federal rules restrict any use of the information to criminally investigate or prosecute any alcohol or drug abuse patient.[facility] HospitalIn the event this information is protected by the Federal Confidentiality of Alcohol and Drug Abuse Patient Records regulations: The Federal rules restrict any use of the information to criminally investigate or prosecute any alcohol or drug abuse patient.[facility] HospitalIn the event this information is protected by the Federal Confidentiality of Alcohol and Drug Abuse Patient Records regulations: The Federal rules restrict any use of the information to criminally investigate or prosecute any alcohol or drug abuse patient.[facility] HospitalIn the event this information is protected by the Federal Confidentiality of Alcohol and Drug Abuse Patient Records regulations: The Federal rules restrict any use of the information to criminally investigate or prosecute any alcohol or drug abuse patient.[facility] HospitalIn the event this information is protected by the Federal Confidentiality of Alcohol and Drug Abuse Patient Records regulations: The Federal rules restrict any use of the information to criminally investigate or prosecute any alcohol or drug abuse patient.[facility] HospitalIn the event this information is protected by the Federal Confidentiality of Alcohol and Drug Abuse Patient Records regulations: The Federal rules restrict any use of the information to criminally investigate or prosecute any alcohol or drug abuse patient.[facility] HospitalIn the event this information is protected by the Federal Confidentiality of Alcohol and Drug Abuse Patient Records regulations: The Federal rules restrict any use of the information to criminally investigate or prosecute any alcohol or drug abuse patient.[facility] HospitalIn the event this information is protected by the Federal Confidentiality of Alcohol and Drug Abuse Patient Records regulations: The Federal rules restrict any use of the information to criminally investigate or prosecute any alcohol or drug abuse patient.[facility] HospitalIn the event this information is protected by the Federal Confidentiality of Alcohol and Drug Abuse Patient Records regulations: The Federal rules restrict any use of the information to criminally investigate or prosecute any alcohol or drug abuse patient.[facility] HospitalIn the event this information is protected by the Federal Confidentiality of Alcohol and Drug Abuse Patient Records regulations: The Federal rules restrict any use of the information to criminally investigate or prosecute any alcohol or drug abuse patient.[facility] HospitalIn the event this information is protected by the Federal Confidentiality of Alcohol and Drug Abuse Patient Records regulations: The Federal rules restrict any use of the information to criminally investigate or prosecute any alcohol or drug abuse patient.[facility] HospitalIn the event this information is protected by the Federal Confidentiality of Alcohol and Drug Abuse Patient Records regulations: The Federal rules restrict any use of the information to criminally investigate or prosecute any alcohol or drug abuse patient.[facility] HospitalIn the event this information is protected by the Federal Confidentiality of Alcohol and Drug Abuse Patient Records regulations: The Federal rules restrict any use of the information to criminally investigate or prosecute any alcohol or drug abuse patient.[facility] HospitalIn the event this information is protected by the Federal Confidentiality of Alcohol and Drug Abuse Patient Records regulations: The Federal rules restrict any use of the information to criminally investigate or prosecute any alcohol or drug abuse patient.[facility] HospitalIn the event this information is protected by the Federal Confidentiality of Alcohol and Drug Abuse Patient Records regulations: The Federal rules restrict any use of the information to criminally investigate or prosecute any alcohol or drug abuse patient.[facility] HospitalIn the event this information is protected by the Federal Confidentiality of Alcohol and Drug Abuse Patient Records regulations: The Federal rules restrict any use of the information to criminally investigate or prosecute any alcohol or drug abuse patient.[facility] HospitalIn the event this information is protected by the Federal Confidentiality of Alcohol and Drug Abuse Patient Records regulations: The Federal rules restrict any use of the information to criminally investigate or prosecute any alcohol or drug abuse patient.[facility] HospitalIn the event this information is protected by the Federal Confidentiality of Alcohol and Drug Abuse Patient Records regulations: The Federal rules restrict any use of the information to criminally investigate or prosecute any alcohol or drug abuse patient.[facility] HospitalIn the event this information is protected by the Federal Confidentiality of Alcohol and Drug Abuse Patient Records regulations: The Federal rules restrict any use of the information to criminally investigate or prosecute any alcohol or drug abuse patient.[facility] HospitalIn the event this information is protected by the Federal Confidentiality of Alcohol and Drug Abuse Patient Records regulations: The Federal rules restrict any use of the information to criminally investigate or prosecute any alcohol or drug abuse patient.[facility] HospitalIn the event this information is protected by the Federal Confidentiality of Alcohol and Drug Abuse Patient Records regulations: The Federal rules restrict any use of the information to criminally investigate or prosecute any alcohol or drug abuse patient.[facility] HospitalIn the event this information is protected by the Federal Confidentiality of Alcohol and Drug Abuse Patient Records regulations: The Federal rules restrict any use of the information to criminally investigate or prosecute any alcohol or drug abuse patient.[facility] HospitalIn the event this information is protected by the Federal Confidentiality of Alcohol and Drug Abuse Patient Records regulations: The Federal rules restrict any use of the information to criminally investigate or prosecute any alcohol or drug abuse patient.[facility] Care Teams (unrecognized sec tion and content) Dimension Mill Worker Relationship Specialty Start Date End Date Jamar Fall DO PCP - General Internal Medicine 08/04/14 Dimension Mill Worker Relationship Specialty Start Date End Date Jamar Fall DO PCP - General Internal Medicine 08/04/14 Dimension Mill Worker Relationship Specialty Start Date End Date Jamar Fall DO PCP - General Internal Medicine 08/04/14 [employer]ension Mill Worker Relationship Specialty Start Date End Date Jamar Fall DO PCP - General Internal Medicine 08/04/14 Marco A Esqueda MD [address] [facility] [place] [address] Physician Hematology/Oncology 11/02/21 Christo Howard APRN.GARMENT WORKER [address] [facility] [address] Nurse Practitioner Hematology/Oncology 11/02/21 Clementine Aguilar, ANITHA [address] [facility] [place] [address] Specialty Cashier Hematology/Oncology 11/02/21 [employer]ension [employer] Worker Relationship Specialty Start Date End Date Jamar Fall, DO PCP - General Internal Medicine 08/04/14 Marco A Esqueda MD [address] [facility] [place] [address] Physician Hematology/Oncology 11/02/21 Christo Howard, DIRECTOR MEDICAL AFFAIRS.GARMENT WORKER [address] [facility] [place] [address] Nurse Practitioner Hematology/Oncology 11/02/21 Clementine Aguilar, ANITHA [address] [facility] [place] [address] Specialty Cashier Hematology/Oncology 11/02/21 [employer]ension Mill Worker Relationship Specialty Start Date End Date Jamar Fall, DO PCP - General Internal Medicine 08/04/14 Marco A Esqueda MD [address] [facility] [place] [address] Physician Hematology/Oncology 11/02/21 Christo Howard, DIRECTOR MEDICAL AFFAIRS.GARMENT WORKER [address] [facility] [place] [address] Nurse Practitioner Hematology/Oncology 11/02/21 Clementine Aguilar, RN [address] [facility] [place] [address] Specialty Cashier Hematology/Oncology 11/02/21 [employer]ension Mill Worker Relationship Specialty Start Date End Date Jamar Fall, DO PCP - General Internal Medicine 08/04/14 Marco A Esqueda MD [address] [facility] [place] [address] Physician Hematology/Oncology 11/02/21 Christo Howard, DIRECTOR MEDICAL AFFAIRS.GARMENT WORKER [address] [facility] [place] [address] Nurse Practitioner Hematology/Oncology 11/02/21 Clementine Aguilar, RN [address] [facility] [place] [address] Specialty Cashier Hematology/Oncology 11/02/21 [employer]ension Mill Worker Relationship Specialty Start Date End Date Jamar Fall, DO PCP - General Internal Medicine 08/04/14 Marco A Esqueda MD [address] [facility] [address] [place], [place] [id number] Physician Hematology/Oncology 11/02/21 Christo Howard, DIRECTOR MEDICAL AFFAIRS.GARMENT WORKER [address] [facility] [place] [address] Nurse Practitioner Hematology/Oncology 11/02/21 Clementine Aguilar, RN [address] [facility] [place] [address] Specialty Cashier Hematology/Oncology 11/02/21 [employer]ension Mill Worker Relationship Specialty Start Date End Date Jamar Fall, DO PCP - General Internal Medicine 08/04/14 Marco A Esqueda MD [address] [facility] [place] [address] Physician Hematology/Oncology 11/02/21 Christo Howard, DIRECTOR MEDICAL AFFAIRS.GARMENT WORKER [address] [facility] [place] [address] Nurse Practitioner Hematology/Oncology 11/02/21 Clementine Aguilar, RN [address] [facility] [place] [address] Specialty Cashier Hematology/Oncology 11/02/21 Dimension Mill Worker Relationship Specialty Start Date End Date Jamar Fall, DO PCP - General Internal Medicine 08/04/14 Marco A Esqueda MD [address] [facility] [place] [address] Physician Hematology/Oncology 11/02/21 Christo Howard, DIRECTOR MEDICAL AFFAIRS.GARMENT WORKER [address] [facility] [place] [address] Nurse Practitioner Hematology/Oncology 11/02/21 Clementine Aguilar, ANITHA [address] [facility] [place] [address] Specialty Cashier Hematology/Oncology 11/02/21 Dimension Mill Worker Relationship Specialty Start Date End Date Jamar Fall, DO PCP - General Internal Medicine 08/04/14 Marco A Esqueda MD [address] [facility] [place] [address] Physician Hematology/Oncology 11/02/21 Christo Howard, DIRECTOR MEDICAL AFFAIRS.GARMENT WORKER [address] [facility] [place] [address] Nurse Practitioner Hematology/Oncology 11/02/21 Clementine Aguilar, RN [address] [facility] [place] [address] Specialty Cashier Hematology/Oncology 11/02/21 Dimension Mill Worker Relationship Specialty Start Date End Date Jamar Fall, DO PCP - General Internal Medicine 08/04/14 Marco A Esqueda MD [address] [facility] [place] [address] Physician Hematology/Oncology 11/02/21 Christo Howard, DIRECTOR MEDICAL AFFAIRS.GARMENT WORKER [address] [facility] [place] [address] Nurse Practitioner Hematology/Oncology 11/02/21 Clementine Aguilar, RN [address] [facility] [place] [address] Specialty Cashier Hematology/Oncology 11/02/21 Dimension Mill Worker Relationship Specialty Start Date End Date Jamar Fall, DO PCP - General Internal Medicine 08/04/14 Marco A Esqueda MD [address] [facility] [place] [address] Physician Hematology/Oncology 11/02/21 Christo Howard, DIRECTOR MEDICAL AFFAIRS.[facility] [address] [facility] [place] [address] Nurse Practitioner Hematology/Oncology 11/02/21 Clementine Aguilar, RN [address] [facility] [place] [address] Specialty Cashier Hematology/Oncology 11/02/21 [employer]ension Mill Worker Relationship Specialty Start Date End Date Jamar Fall, DO PCP - General Internal Medicine 08/04/14 Marco A Esqueda MD [address] [facility] [place] [address] Physician Hematology/Oncology 11/02/21 Christo Howard, DIRECTOR MEDICAL AFFAIRS.GARMENT WORKER [address] [facility] [place] [address] Nurse Practitioner Hematology/Oncology 11/02/21 Clementine Aguilar, RN [address] [facility] [place] [address] Specialty Cashier Hematology/Oncology 11/02/21 [employer]ension Mill Worker Relationship Specialty Start Date End Date Jamar Fall, DO PCP - General Internal Medicine 08/04/14 Marco A Esqueda MD [address] [facility] [place] [address] Physician Hematology/Oncology 11/02/21 Christo Howard, DIRECTOR MEDICAL AFFAIRS.GARMENT WORKER [address] [facility] [place] [address] Nurse Practitioner Hematology/Oncology 11/02/21 Clementine Aguilar, ANITHA [address] [facility] [place] [address] Specialty Cashier Hematology/Oncology 11/02/21 Dimension Mill Worker Relationship Specialty Start Date End Date Jamar Fall DO PCP - General Internal Medicine 08/04/14 Marco A Esqueda MD [address] [facility] [place] [address] Physician Hematology/Oncology 11/02/21 Christo Howard, DIRECTOR MEDICAL AFFAIRS.GARMENT WORKER [address] [facility] [place] [address] Nurse Practitioner Hematology/Oncology 11/02/21 Clementine Aguilar, ANITHA [address] [facility] [place] [address] Specialty Cashier Hematology/Oncology 11/02/21 Dimension Mill Worker Relationship Specialty Start Date End Date Jamar Fall DO PCP - General Internal Medicine 08/04/14 Marco A Esqueda MD [address] [place] [address] [place] [address] Physician Hematology/Oncology 11/02/21 Christo Howard, DIRECTOR MEDICAL AFFAIRS.GARMENT WORKER [address] [facility] [place] [address] Nurse Practitioner Hematology/Oncology 11/02/21 Clementine Aguilar, ANITHA [address] [facility] [place] [address] Specialty Cashier Hematology/Oncology 11/02/21 Dimension Mill Worker Relationship Specialty Start Date End Date Jamar Fall DO PCP - General Internal Medicine 08/04/14 Marco A Esqueda MD [address] [place] [address] [place] [address] Physician Hematology/Oncology 11/02/21 Christo Howard, DIRECTOR MEDICAL AFFAIRS.GARMENT WORKER [address] [facility] [place] [address] Nurse Practitioner Hematology/Oncology 11/02/21 Clementine Aguilar RN [address] [facility] [place] [address] Specialty Cashier Hematology/Oncology 11/02/21 Dimension Mill Worker Relationship Specialty Start Date End Date Jamar Fall DO PCP - General Internal Medicine 08/04/14 Marco A Esqueda MD [address] [facility] [place] [address] Physician Hematology/Oncology 11/02/21 Christo Howard, DIRECTOR MEDICAL AFFAIRS.GARMENT WORKER [address] [facility] [place] [address] Nurse Practitioner Hematology/Oncology 11/02/21 Clementine Aguilar, ANITHA [address] [facility] [address] [place] [address] Specialty Cashier Hematology/Oncology 11/02/21 Dimension Mill Worker Relationship Specialty Start Date End Date Jamar Fall DO PCP - General Internal Medicine 08/04/14 Marco A Esqueda MD [address] [facility] [address] [place] [address] Physician Hematology/Oncology 11/02/21 Christo Howard APRN.GARMENT WORKER [address] [facility] [address] [place] [address] Nurse Practitioner Hematology/Oncology 11/02/21 Clementine Aguilar RN [address] [facility] [address] [place] [address] Specialty Cashier Hematology/Oncology 11/02/21 Dimension Mill Worker Relationship Specialty Start Date End Date Jamar Fall MD [address] [place] [address] PCP - General Internal Medicine 05/31/23 Dimension Mill Worker Relationship Specialty Start Date End Date Jamar Fall MD [address] [place] [address] PCP - General Internal Medicine [...] Procedures DENOSUMAB INJECTION Marco A Esqueda MD [address] [place] [address] [place] [address] Himanshu Treat Ariella Mc [address] [facility] [address] [place] [address] Referral ID Status Reason Start Date Expiration Date V isits Requested Visits Authorized [id number] Authorized 11/11/2021 07/16/2022 99 99 Reason Comments [...] R ear Marco A Esqueda MD [address] [facility] [place] [address] Lety Holguin MD [address] [place] [address] Referral ID Status Reason Start Date Expiration Date Visits Re quested Visits Authorized [id number] Closed 08/04/2023 01/31/2024 1 1 (unrecognized sect ion and content) No Status Records FoundNo Status Records FoundNo Status Records FoundNo Status Records FoundNo Status Records Found INFORMATION SOURCE (unrecogn ized section and content) DATE CREATED AUTHOR 10/31/2022 [facility] DATE CREATED AUTHOR AUTHOR'S ORGANIZ ATION 04/26/2023 [facility] DATE CREATED AUTHOR AUTHOR'S ORGANIZ ATION 06/24/2023 [facility] DATE CREATED AUTHOR AUTHOR'S ORGANIZ ATION 08/08/2023 [facility] DATE CREATED AUTHOR AUTHOR'S ORGANIZ ATION 09/29/2023 [facility] EPIC FOR RECORDS PERTAINING [...] BE BASED ON THE PRIMARY CLINICAL RECORDS. [facility]. provides no warranty or guarantee of the accuracy or completeness of information in this document.
[2023-10-09 12:54] LABS: Prostate Specific Antigen Dx <0.13 ng/mL (<=4.00)
== END 2023-10-09 10:44 | disposition home or self-care (01) ==
LOC: LAB 10:45
PROVIDERS: PCP Internal Medicine; Visit Provider Urology
DX: K59.00 Constipation, unspecified (principal); R97.21 Rising PSA following treatment for malignant neoplasm of prostate; R31.29 Other microscopic hematuria
CPT/HCPCS: 36415; 74018; 84153

== ENCOUNTER 2023-11-28 09:37 | Outpatient (OUT) | payer MEDICARE, OTHER, SELFPAY ==
--- NOTE | 2023-11-28 09:43 | MR_ITS ---
[address] [address] Patient Name: PABLO ONEIL MRN: [id number] date: 1945 Sex: M Assigned Patient Location: MRI Current Patient Location: MRI Accession/Order Number: [id number] Exam Date: 11/28/2023 09:57 Report Date: 11/28/2023 14:25 At the request of: LISSA FALL Procedure: MR cervical spine wo con EXAMINATION: MR cervical spine wo con HISTORY: Neck Pain, Cervical Spondylosis ; chronic COMPARISON: No relevant comparison available. TECHNIQUE: A variety of imaging planes and parameters were utilized for visualization of suspected pathology without and/or with intravenous Dotarem contrast based on examination type. FINDINGS: CRANIOCERVICAL AREA: Normal foramen magnum with no Chiari malformation. PARASPINAL AREA: Normal with no visible mass. BONES: No fracture, pars defect, or osseous lesion. CORD: Normal caliber, contour, and signal intensity. CERVICAL DISC LEVELS: C2-C3: Early degenerative disc disease is present without focal protrusion or neural impingement. C3-C4: Marked central canal narrowing. Moderate right, marked left foramen narrowing. Moderate diffuse disc bulging without significant disc height reduction. Mild degenerative facet arthropathy, left greater than right. C4-C5: Mild right, moderate left foramen narrowing. No significant central canal narrowing. Mild disc bulging without disc at reduction. Mild degenerative facet arthropathy, left greater than right. C5-C6: Mild right, moderate left foramen narrowing. No significant central canal narrowing. No significant disc bulging or disc height reduction. Mild/moderate left facet arthropathy. C6-C7: Moderate- marked foramen narrowing bilaterally. No significant central canal narrowing. Mild diffuse bulging without disc height reduction. Uncovertebral joint spurring and mild facet arthropathy bilaterally. C7-T1:. Mild right, moderate left foramen narrowing. No significant disc bulging or disc at reduction. Mild left facet arthropathy. MR/MR cervical spine wo con IMPRESSION: 1. Marked central canal narrowing C3-4 secondary to posterior disc bulging and degenerative facet arthropathy. 2. Multilevel moderate or greater foramen narrowing secondary to degenerative disc disease and facet arthropathy; left greater than right. Electronically authenticated by: CYNTHIA TORRES Date: 11/28/2023 14:25
== END 2023-11-28 09:38 | disposition home or self-care (01) ==
LOC: MRI 09:37
PROVIDERS: PCP Internal Medicine; Visit Provider Internal Medicine
DX: M54.2 Cervicalgia (principal); M47.812 Spondylosis without myelopathy or radiculopathy, cervical region
CPT/HCPCS: 72141

== ENCOUNTER 2023-12-13 10:47 | Outpatient (OUT) | payer MEDICARE, OTHER, SELFPAY ==
--- NOTE | 2023-12-13 11:00 | P.CN_ITS ---
Consult Note: HPI Data of Consult Patient: new to practice Requesting Physician: Cheryl Cox NP Primary Care Provider: Jamar Jones DO Consult Narrative Reason for consult: establish Narrative: Rajesh Felix a pleasant 78 year old male presents for evaluation and management of chronic left sided neck pain. Patient has historically benefitted from injection therapy in neck and low back, unsure of type, greater than 10 years ago. Patient reporting pain 2/10 tightness in left neck increasing to 4/10 with twisting, upon waking up. Pain decreased with ice. No recent PT, upcoming evaluation next week. Has failed tylenol, voltaren, and salon pas. Patient has chronic numbness of right hand, PCP thinks CTS. Gerald tingling weakness. cc:: CC: Cheryl Cox NP Review of Systems ROS Status of ROS 10 or more systems reviewed and unremark able except as noted in history and below Musculoskeletal Reports: neck pain Meds Home Medications and Allergies Home Medications ?Medication ?Instructions ?Recorded ?Confirmed ?Type CALCIUM & D3 .QD 12/13/23 History aspirin 81 mg capsule 81 mg PO DAILY 12/13/23 12/13/23 History atorvastatin 40 mg tablet 40 mg PO DAILY 12/13/23 12/13/23 History enzalutamide 80 mg tablet (Xtandi) 80 mg PO DAILY 12/13/23 12/13/23 History glimepiride 1 mg tablet 0.5 mg PO DAILY 12/13/23 12/13/23 History lisinopril 20 mg tablet 20 mg PO DAILY 12/13/23 12/13/23 History metformin 500 mg tablet 500 mg PO BID 12/13/23 12/13/23 History metoprolol succinate 25 mg 25 mg PO Q12H 12/13/23 12/13/23 History tablet,extended release 24 hr multivitamin with iron (Daily 1 tab PO DAILY 12/13/23 12/13/23 History Vites/Iron tablet) Exam Constitutional Documenting provider has reviewed patient's vital signs: yes Common normals: no apparent distress, oriented x3, healthy appearing, alert and well nourished General appearance: cooperative [facility] Common normals: normocephalic, hearing grossly normal bilaterally and moist oral mucous membranes Head and scalp: normocephalic Eye Common normals: PERRL Pupil: PERRL Neck & C-Spine Common normals: full ROM General: normal visual inspection Cervical spine: cervical ROM normal, pain with cervical ROM, paracervical muscle tenderness and paracervical muscle spasm Other: trigger points noted in left sternocleidomastoid and left paracervical area negative sprulings sensation intact BUE strength 5/5 in BUE Chest Common normals: inspection of chest normal Respiratory Common normals: normal respiratory effort, no retractions and no use of accessory muscles Neuro Common normals: oriented x3, CN's II-XII intact bilaterally, moves all extremities, no focal motor deficits, no sensory deficits noted and deep tendon reflexes 2+ bilaterally Sensorium/orientation: alert Motor exam: strength 5/5 throughout and no movement abnormalities noted Psych Common normals: mental status grossly normal, thought process normal, cooperative, affect normal, speech normal and activity/motor behavior normal Speech: normal speech Thought process: normal thought process Results Imaging cervical MRI: Attestation: I have reviewed the pertinent imaging results. Radiologist's impression: C2-C3: Early degenerative disc disease is present without focal protrusion or neural impingement. C3-C4: Marked central canal narrowing. Moderate right, marked left foramen narrowing. Moderate diffuse disc bulging without significant disc height reduction. Mild degenerative facet arthropathy, left greater than right. C4-C5: Mild right, moderate left foramen narrowing. No significant central canal narrowing. Mild disc bulging without disc at reduction. Mild degenerative facet arthropathy, left greater than right. C5-C6: Mild right, moderate left foramen narrowing. No significant central canal narrowing. No significant disc bulging or disc height reduction. Mild/moderate left facet arthropathy. C6-C7: Moderate- marked foramen narrowing bilaterally. No significant central canal narrowing. Mild diffuse bulging without disc height reduction. Uncovertebral joint spurring and mild facet arthropathy bilaterally. C7-T1:. Mild right, moderate left foramen narrowing. No significant disc bulging or disc at reduction. Mild left facet arthropathy. Additional Findings Additional findings: If on a controlled substance or opioids, I have checked an OARRS report on this patient and there are no aberrancies noted in the prescribing history.??If on a controlled substance or opioid a drug screen was completed and reviewed within the last year, and if there has not been a drug screen completed we ordered one today to monitor higher risk, state monitored pain medication use. As part of providing excellent, safe, comprehensive care, the following was completed at our patient's visit: 1. A medication reconciliation and review to ensure accurate knowledge of current/active medications, including asking our patients to inform us about any evst-qja-wfyfycw medications or herbal remedies/nutritional supplements/alternative remedies. 2. A review to specifically ensure our patients have had annual screening for screening for depression, screening for tobacco use, and screening for unhealthy alcohol use. For concerning screenings had a discussion with the patient, provided patient education, and recommended follow-up with primary care provider when appropriate. If patient noted with a risk of falling, they received education on strength, gait, and balance training to prevent future risk of falling. Assessment and Plan Assessment and Plan (1) Myofascial pain: (2) Cervical spondylosis: Plan return for TPI with Dr Arriaga start baclofen 5-10mg BID PRN myofascial spasms and pain start PT next week briefly discussed left C3/4 C4/5 facet medial branch blocks as a future consideration REPAIRER CONTROLLER TESTER reviewed and signed defer UDS
== END 2023-12-13 10:48 | disposition home or self-care (01) ==
LOC: PM 10:48
PROVIDERS: PCP Internal Medicine; Visit Provider Nurse Practitioner
DX: M79.18 Myalgia, other site (principal); M47.812 Spondylosis without myelopathy or radiculopathy, cervical region
CPT/HCPCS: G0463

== ENCOUNTER 2023-12-19 11:07 | Outpatient (OUT) | payer MEDICARE, OTHER, SELFPAY ==
--- NOTE | 2023-12-19 | CONS_ITS ---
PROCEDURE DATE: 12/19/2023 PROCEDURE: Left trapezius trigger point injection. PREOPERATIVE DIAGNOSIS: Pain secondary to myalgia and spasm. POSTOPERATIVE DIAGNOSIS: Pain secondary to myalgia and spasm. SOLUTION USED FOR INJECTION: 2 mL of 2% lidocaine, 2 mL of 0.25% Marcaine and 10 mg of Kenalog, total of 5 mL, and 2.5 mL used for the injection at the site. IMMEDIATE COMPLICATIONS: None. PROCEDURE: After informed consent was obtained from the patient, placed in the sitting position. Skin overlying the area was prepped with alcohol. A 25 gauge, 1 ?? needle was inserted over the left trapezius, approximately 2 cm from midline, at the T1 level. Needle tip advanced until there was a twitch response, after which we injected 2.5 mL of solution. No indication of intravascular or intraneural or intrapleural needle tip placement or injection. No evidence of post procedure pneumothorax was noted. Patient reports reduction in pain symptoms post procedurally. Patient?s DON pre-procedurally was 8. MTDD
== END 2023-12-19 11:08 | disposition home or self-care (01) ==
LOC: PM 11:08
PROVIDERS: PCP Internal Medicine; Visit Provider Anesthesiology Pain Medicine
DX: S46.812D Strain of other muscles, fascia and tendons at shoulder and upper arm level, left arm, subsequent encounter (principal); M62.838 Other muscle spasm; M79.18 Myalgia, other site
CPT/HCPCS: 20552

== ENCOUNTER 2023-12-20 08:45 | Outpatient (RCR) | payer MEDICARE, OTHER, SELFPAY | END 2024-01-13 16:49 | disposition home or self-care (01) | LOC: PT 08:45 | PROVIDERS: PCP Internal Medicine; Visit Provider Internal Medicine | DX: M54.2 Cervicalgia (principal); M47.812 Spondylosis without myelopathy or radiculopathy, cervical region | CPT/HCPCS: 97012; 97110; 97140; 97162 ==

== ENCOUNTER 2024-01-02 13:19 | Outpatient (OUT) | payer MEDICARE, OTHER, SELFPAY ==
--- NOTE | 2024-01-02 | CONS_ITS ---
PROCEDURE DATE: 01/02/2024 PROCEDURE: Trigger point injection left splenius capitis muscle. PREOPERATIVE DIAGNOSIS: Pain secondary to cervical spinal stenosis, splenius capitis myalgia. POSTOPERATIVE DIAGNOSIS: Pain secondary to cervical spinal stenosis, splenius capitis myalgia. SOLUTION USED FOR INJECTION: 2 mL of 2% lidocaine, 2 mL of 0.25% Marcaine and 2 mg of Kenalog, total of 5 mL, and 2.5 mL used for the injection at the site. IMMEDIATE COMPLICATIONS: None. PROCEDURE: After informed consent was obtained from the patient, placed in the sitting position. Skin overlying the area was prepped with alcohol. A 25 gauge, 1 ?? needle was inserted into the left splenius capitis muscle. After encountering same, there was a positive twitch response. No indication of intravascular or intraneural needle tip placement. 2.5 mL of solution was injected. Post procedure, patient reports a dramatic reduction in pain symptoms. SALOMÓN
--- NOTE | 2024-01-02 | CONS_ITS ---
CONSULTATION DATE: 01/02/2024 TO: Dr. Enrique Jones CHIEF COMPLAINT: Includes left sided neck pain, arm pain. HISTORY: Patient describes the pain as being 2-7/10 pain and a severe stiffness with a deep aching component, increased with activity such as lifting maneuvers, pushing/pulling maneuvers. He feels most comfortable in the semi-recumbent position. Denies any change in bowel and bladder habits or new sensorimotor change in his upper extremities. EXAM: Notable for patient having hypoesthesia and dysesthesia along the left C5 dermatome with mild weakness of his left deltoid. There is no appreciable Spurling?s sign, and he had a diminished left biceps reflex. IMPRESSION: Our impression is patient with chronic pain secondary to spinal stenosis C3-4 with left C4, partial C5 radiculitis, myalgia involving the splenius capitis muscle on the left side with significant myofascial spasm of the left splenius capitis muscle with resultant pain, and lastly, the patient appears to have residual right carpal tunnel syndrome. RECOMMENDATIONS: I recommend he consider trigger point injection of the splenius capitis muscle, consultation with Dr. Dumas regarding a carpal tunnel release and to proceed with cervical epidural steroid injection for his pain from his spinal stenosis and left L4-5 radiculopathy. As part of providing excellent, safe, comprehensive care, the following was completed at our patient's visit: 1. A medication reconciliation and review to ensure accurate knowledge of current/active medications, including asking our patients to inform us about any xlgd-kks-vmqkxin medications or herbal remedies/nutritional supplements/alternative remedies. 2. A review to specifically ensure our patients have had annual screening for: elevated body mass index (BMI, see intake chart for exact total), tobacco use, screening for depression, and screening for unhealthy alcohol use. When screening is concerning, patients are provided with education and the specific recommendation to discuss the concerning health issue and treatment options with their primary care provider. SALOMÓN
== END 2024-01-02 13:20 | disposition home or self-care (01) ==
LOC: PM 13:19
PROVIDERS: PCP Internal Medicine; Visit Provider Anesthesiology Pain Medicine
DX: M54.2 Cervicalgia (principal); M54.12 Radiculopathy, cervical region; M48.02 Spinal stenosis, cervical region; M79.18 Myalgia, other site
CPT/HCPCS: 20552; J0665; J3301

== ENCOUNTER 2024-01-29 08:36 | Outpatient (OUT) | payer MEDICARE, OTHER, SELFPAY ==
--- NOTE | 2024-01-29 | XR_ITS ---
The [address] [address] Patient Name: PABLO ONEIL MRN: [id number] date: 1945 Sex: M Assigned Patient Location: Current Patient Location: Accession/Order Number: [id number] Exam Date: 01/29/2024 08:37 Report Date: 01/29/2024 12:45 At the request of: CYNTHIA AGUILERA Procedure: XR hand RT min 3V PROCEDURE: XR hand RT min 3V COMPARISON: None. HISTORY: RIGHT HAND PAIN FINDINGS: BONES:No acute fracture or dislocation. Mild degenerative changes with marginal osteophyte formation. Some subchondral cystic changes noted along the radial head of the second metatarsal and at the first interphalangeal joint SOFT TISSUES:Negative. No visible soft tissue swelling. EFFUSION:None visible. OTHER: Negative. 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
== END 2024-01-29 08:37 | disposition home or self-care (01) ==
LOC: EC 08:36
PROVIDERS: PCP Internal Medicine; Visit Provider Orthopaedic Surgery
DX: M79.641 Pain in right hand (principal)
CPT/HCPCS: 73130

== ENCOUNTER 2024-01-30 10:56 | Day surgery (SDC) | payer MEDICARE, OTHER, SELFPAY ==
[2024-01-30 11:13] VITALS: BP 134/69; PULSE 52; TEMP 36.5; O2SAT 97
[2024-01-30 11:13] LABS: Glucometer 115 mg/dL (74-106)
[2024-01-30 11:56] VITALS: BP 145/71; BP 155/75; PULSE 55; PULSE 58; O2SAT 98; O2SAT 99
[2024-01-30] MEDS: 0.9 % SODIUM CHLORIDE 10 ML SYRINGE - SALINE FLUSH 2 ML INJ (12:03)
[2024-01-30] MEDS: BUPIVACAINE HCL 0.25% PF 25 MG/10 ML VIAL 2 ML INJ (12:03)
[2024-01-30] MEDS: DEXAMETHASONE SOD PHOS 10 MG/ML VIAL INJ (12:03)
[2024-01-30] MEDS: LIDOCAINE HCL 2% PF 100 MG/5 ML VIAL 3 ML INJ (12:04)
[2024-01-30] MEDS: IOHEXOL 240 MG/ML - 10 ML VIAL 24 MG INJ (12:04)
--- NOTE | 2024-01-30 14:24 | P.ON_ITS ---
Date of procedure: 01/30/24 Pre-op diagnosis: cervical stenosis Post-op diagnosis: same as pre-op Procedure: Cervical 7/Thoracic 1 Epidural Steroid Injection Under fluoroscopic guidance Immediate complications none Solution used for injection: Marcaine 0.25% 2mL, 2cc Normal saline, Dexame thasone 10mg Omnipaque 3 mL Anesthesia local 2% lidocaine up to 4ml Timeout process compliant After informed consent obtained. Patient brought to the procedure room placed in the prone position. Skin overlying the area was prepped and draped in a sterile fashion using betadine. 25 gauge needle used to raise a skin wheel with local anesthetic over the target area identified under fluoroscopy. A 17 gauge Touhy needle Was inserted over the anesthetized area and directed towards the inter- space under fluoroscopic guidance. Epidural space was identified with loss of resistance technique to air. Needle Tip placement confirmed with injection of contrast solution in both AP and Lateral views. Steroid solution was then injected. Anesthesia: Local Surgeon: Nina Arriaga Condition: stable
== END 2024-01-30 12:06 | disposition home or self-care (01) ==
LOC: SURGOUT 10:58
PROVIDERS: PCP Internal Medicine; Visit Provider Anesthesiology Pain Medicine
DX: M54.12 Radiculopathy, cervical region (principal); M48.02 Spinal stenosis, cervical region; Z79.84 Long term (current) use of oral hypoglycemic drugs
CPT/HCPCS: 36415; 62321; 82948; J0665; J1100; Q9966

== ENCOUNTER 2024-02-15 09:47 | Outpatient (OUT) | payer MEDICARE, OTHER, SELFPAY ==
--- NOTE | 2024-02-15 10:08 | P.CN_ITS ---
Consult Note: HPI Data of Consult Patient: known to practice within the last 3 years Requesting Physician: Cheryl Cox NP Primary Care Provider: Jamar Jones DO Consult Narrative Reason for consult: chronic neck pain Narrative: Rajesh Felix a pleasant 78 year old male presents for evaluation and management of chronic left sided neck pain. Patient has historically benefitted from injection therapy in neck and low back, unsure of type, greater than 10 years ago. Patient reporting pain 3/10 tightness in left neck increasing to 4/10 with twisting, upon waking up. Pain decreased with ice. PT completed with mild benefit. Has failed tylenol, voltaren, and salon pas. Following with Dr Dumas for evaluation of CTS. Recent C7-T1 MARNIE providing 50% improvement ongoing. cc:: CC: Cheryl Cox NP Review of Systems ROS Status of ROS 10 or more systems reviewed and unremark able except as noted in history and below Meds Home Medications and Allergies Home Medications ?Medication ?Instructions ?Recorded ?Confirmed ?Type CALCIUM & D3 .QD 12/13/23 History aspirin 81 mg capsule 81 mg PO DAILY 12/13/23 01/30/24 History atorvastatin 40 mg tablet 40 mg PO DAILY 12/13/23 01/30/24 History baclofen 10 mg tablet 10 mg PO BID PRN muscle spasm 12/13/23 01/30/24 History enzalutamide 80 mg tablet (Xtandi) 80 mg PO DAILY 12/13/23 01/30/24 History glimepiride 1 mg tablet 0.5 mg PO DAILY 12/13/23 01/30/24 History lisinopril 20 mg tablet 20 mg PO DAILY 12/13/23 01/30/24 History metformin 500 mg tablet 500 mg PO BID 12/13/23 01/30/24 History metoprolol succinate 25 mg 25 mg PO Q12H 12/13/23 01/30/24 History tablet,extended release 24 hr multivitamin with iron (Daily 1 tab PO DAILY 12/13/23 01/30/24 History Vites/Iron tablet) Allergies Allergy/AdvReac Type Severity Reaction Status Date / Time Penicillins Allergy Mild Rash Verified 01/30/24 11:11 Exam Constitutional Documenting provider has reviewed patient's vital signs: yes Common normals: no apparent distress, oriented x3, healthy appearing, alert and well nourished General appearance: cooperative [facility] Common normals: normocephalic, hearing grossly normal bilaterally and moist oral mucous membranes Head and scalp: normocephalic Eye Common normals: PERRL Pupil: PERRL Neck & C-Spine Common normals: full ROM General: normal visual inspection Cervical spine: cervical ROM normal, pain with cervical ROM and paracervical muscle tenderness Other: pain over left C3-4 C4-5 facets, positive facet loading negative sprulings sensation intact BUE strength 5/5 in BUE Chest Common normals: inspection of chest normal Respiratory Common normals: normal respiratory effort, no retractions and no use of accessory muscles Neuro Common normals: oriented x3, CN's II-XII intact bilaterally, moves all extremities, no focal motor deficits, no sensory deficits noted and deep tendon reflexes 2+ bilaterally Sensorium/orientation: alert Motor exam: strength 5/5 throughout and no movement abnormalities noted Psych Common normals: mental status grossly normal, thought process normal, cooperative, affect normal, speech normal and activity/motor behavior normal Speech: normal speech Thought process: normal thought process Results Additional Findings Additional findings: If on a controlled substance or opioids, I have checked an OARRS report on this patient and there are no aberrancies noted in the prescribing history.??If on a controlled substance or opioid a drug screen was completed and reviewed within the last year, and if there has not been a drug screen completed we ordered one today to monitor higher risk, state monitored pain medication use. As part of providing excellent, safe, comprehensive care, the following was completed at our patient's visit: 1. A medication reconciliation and review to ensure accurate knowledge of current/active medications, including asking our patients to inform us about any wlla-itq-iovtzdp medications or herbal remedies/nutritional supplements/alternative remedies. 2. A review to specifically ensure our patients have had annual screening for screening for depression, screening for tobacco use, and screening for unhealthy alcohol use. For concerning screenings had a discussion with the patient, provided patient education, and recommended follow-up with primary care provider when appropriate. If patient noted with a risk of falling, they received education on strength, gait, and balance training to prevent future risk of falling. Assessment and Plan Assessment and Plan (1) Cervical spondylosis: (2) Myofascial pain: (3) Cervical radiculopathy: Plan educational handouts provided on left C3-4 C4-5 facet medial branch block x2 working towards RFA to consider in the future if pain becomes moderate to severe or functional ability worsens continue f/u with Dr Dumas f/u 3 months or as needed
== END 2024-02-15 09:48 | disposition home or self-care (01) ==
LOC: PM 09:47
PROVIDERS: PCP Internal Medicine; Visit Provider Nurse Practitioner
DX: M47.812 Spondylosis without myelopathy or radiculopathy, cervical region (principal); M79.18 Myalgia, other site; M54.12 Radiculopathy, cervical region
CPT/HCPCS: G0463

== ENCOUNTER 2024-04-01 09:55 | Outpatient (OUT) | payer MEDICARE, OTHER, SELFPAY | END 2024-04-01 09:56 | disposition home or self-care (01) | PROVIDERS: PCP Internal Medicine; Visit Provider Orthopaedic Surgery | DX: Z01.818 Encounter for other preprocedural examination (principal); G56.02 Carpal tunnel syndrome, left upper limb ==

== ENCOUNTER 2024-04-01 09:58 | Outpatient (OUT) | payer MEDICARE, OTHER, SELFPAY ==
--- NOTE | 2024-04-01 10:35 | XR_ITS ---
The [address] [address] Patient Name: PABLO ONEIL MRN: [id number] date: 1945 Sex: M Assigned Patient Location: [facility] Current Patient Location: Accession/Order Number: [id number] Exam Date: 04/01/2024 10:47 Report Date: 04/02/2024 09:22 At the request of: CYNTHIA AGUILERA Procedure: XR chest 2V EXAMINATION: XR chest 2V HISTORY: Preop exam COMPARISON: No relevant comparison available. TECHNIQUE: PA and lateral FINDINGS: LUNGS: 2 focal pulmonary nodules one in the right midlung second in the left midlung both indeterminate. No focal consolidation VASCULATURE: No increased pulmonary vasculature. PLEURA: No pneumothorax, effusion, or pleural thickening. CARDIAC: No cardiomegaly or cardiac silhouette abnormality. MEDIASTINUM: No visible mass or adenopathy. Median sternotomy closure devices/wires BONES: No fracture or visible bone lesion. OTHER: Negative. XR/XR chest 2V IMPRESSION: Bilateral mid lung pulmonary nodules possibly representing nipples. Consider follow-up exam with nipple markers Electronically authenticated by: FEDE AYOUB Date: 04/02/2024 09:22
[2024-04-01 10:53] LABS: Basophils Percent Auto 0.7 % (0.2-2.0); Eosinophils Absolute Auto 0.3 10^3/uL (0.0-0.7); Eosinophils Percent Auto 5.3 % (0.9-7.0); Hematocrit 33.6 % (42.0-54.0); Hemoglobin 11.4 g/dL (14.0-18.0); Immature Granulocytes Abs Auto 0.03 10^3/uL (0.00-0.03); Immature Granulocytes Pct Auto 0.5 % (0.0-0.5); Lymphocytes Absolute Auto 1.6 10^3/uL (1.2-3.8); Lymphocytes Percent Auto 27.7 % (20.5-60.0); Mean Corpuscular HGB Conc 33.9 g/dL (29.9-35.2); Mean Corpuscular Hemoglobin 32.6 pg (25.9-34.0); Mean Platelet Volume 10.3 fL (9.5-13.5); Monocytes Absolute Auto 0.6 10^3/uL (0.3-0.8); Monocytes Percent Auto 9.8 % (1.7-12.0); Neutrophils Absolute Auto 3.3 10^3/uL (1.4-6.5); Platelet Count 186 10^3/uL (150-450); White Blood Count 5.8 10^3/uL (4.0-11.0)
[2024-04-01 11:24] LABS: INR 0.93; Prothrombin Time 9.9 sec (9.0-11.6)
[2024-04-01 12:02] LABS: BUN Creatinine Ratio 18.7; Calcium 8.9 mg/dL (8.5-10.1); Carbon Dioxide 27.7 mmol/L (21.0-32.0); Chloride 104 mmol/L (98-107); Estimated GFR (African America >60 (>=60); Estimated GFR (Non-African Ame >60 (>=60); Glucose 114 mg/dL (74-106); Potassium 4.7 mmol/L (3.5-5.1); Sodium 140 mmol/L (136-145)
== END 2024-04-01 09:59 | disposition home or self-care (01) ==
LOC: PST 09:59
PROVIDERS: PCP Internal Medicine; Visit Provider Orthopaedic Surgery
DX: Z01.810 Encounter for preprocedural cardiovascular examination (principal); Z01.812 Encounter for preprocedural laboratory examination; G56.01 Carpal tunnel syndrome, right upper limb
CPT/HCPCS: 71046; 80048; 85025; 85610; 85730

== ENCOUNTER 2024-04-08 11:51 | Day surgery (SDC) | payer MEDICARE, OTHER, SELFPAY ==
[2024-04-01 10:51] VITALS: BP 133/76; PULSE 51; TEMP 36.3; O2SAT 98; BMI 33.2
[2024-04-08 12:03] VITALS: BP 143/93; PULSE 54; TEMP 36.1; O2SAT 98; BMI 32.5
[2024-04-08] MEDS: LACTATED RINGER'S SOLUTION 1,000 ML 50 ML IV (12:24)
[2024-04-08] MEDS: CEFAZOLIN SODIUM 2 GM/50 ML D5W PREMIX IV (12:42)
[2024-04-08] MEDS: LIDOCAINE HCL 1%-EPINEPHRINE 1:100,000 10 ML MDV INJ (13:07)
[2024-04-08] MEDS: BUPIVACAINE HCL 0.5% PF 50 MG/10 ML VIAL INJ (13:07)
[2024-04-08 13:18] VITALS: BP 115/54; PULSE 56; TEMP 36.3; O2SAT 96
--- NOTE | 2024-04-08 13:19 | P.ORPRC_ITS ---
Procedure Note Date of procedure: 04/08/24 Pre-op diagnosis: R.CTS Post-op diagnosis: same as pre-op Procedure: Procedure: Right endoscopic carpal tunnel release Indications for Surgery: The patient has had signs and symptoms of carpal tunnel syndrome that have f lucita conservative treatment. Options were discussed with the patient as well as risks and benefits and they have elected to proceed with the surgery. Operative procedure: Prior to surgery the patient received IV antibiotics. The operative extremity was marked preoperatively. After informed consent was obtained the patient was brought to the operating room where MAC anesthesia was administered. Preoperatively 5 mm 0.5% Marcaine plain with 5 mm 1% lidocaine with epinephrine were infiltrated in the operative sight. The arm was then prepped and draped in the usual sterile fashion after placement of a well padded tourniquet. The arm was elevated, exsanguinated, and the tourniquet was inflated. A 1 cm incision was then made in a preexisting distal wrist crease. Hemostasis was achieved with bipolar electrocautery. Blunt dissection was then carried down to the forearm fascia where a U-based flap was created. Proximally the fascia was incised for 2 cm under direct visualization. Attention was then turned to the endoscopic carpal tunnel release. The synovial elevator was used to clear the underside of the transverse carpal ligament of soft tissue. Sequential dilators were then placed. The endoscopic carpal tunnel released instrument was then placed. The transverse fibers were then identified and release from distal to proximal. The ligament was completely release. The tourniquet was deflated and hemostasis was achieved. The wound was irrigated and closed with a nylon suture. A sterile dressing was placed. The patient was brought to the recovery room. There were no preoperative or postoperative complications. Anesthesia: MAC and local Surgeon: Cristhian Dumas Estimated blood loss (mL): 1 Pathology: none sent Condition: stable Disposition: PACU
[2024-04-08 13:33] VITALS: BP 131/61; PULSE 50; O2SAT 97
[2024-04-08 13:48] VITALS: BP 134/60; PULSE 52; O2SAT 98
== END 2024-04-08 13:48 | disposition home or self-care (01) ==
PROVIDERS: PCP Internal Medicine; Visit Provider Orthopaedic Surgery
PROC: (CPT 29848; principal; 2024-04-08 13:00)
DX: G56.01 Carpal tunnel syndrome, right upper limb (principal); I25.10 Atherosclerotic heart disease of native coronary artery without angina pectoris; Z95.1 Presence of aortocoronary bypass graft; Z90.79 Acquired absence of other genital organ(s); G47.33 Obstructive sleep apnea (adult) (pediatric); E78.5 Hyperlipidemia, unspecified; I10 Essential (primary) hypertension; E11.9 Type 2 diabetes mellitus without complications; Z79.84 Long term (current) use of oral hypoglycemic drugs
CPT/HCPCS: 29848; 36415; 82948; J0665; J0690; J2704; J3010

== ENCOUNTER 2024-04-12 11:06 | Outpatient (OUT) | payer MEDICARE, OTHER, SELFPAY ==
--- OUTSIDE RECORDS SUMMARY | 2024-04-12 11:10 | XMS_ITS | CCD ---
Author Organization [facility] Care Team Providers Care Braiding Machine Tender Name Role Phone Jamar Fall DO Primary Care Provider Dheeraj JAMES, Marco A R Unavailable [phone]ALEXA, Christo Unavailable Lauren WELSH, Clementine Unavailable [phone] JAMAR FALL Primary Care Physician [phone] Jamar Fall DO Primary Care Provider Dheeraj JAMES, Marco A R Unavailable [facility] [address].DRIVER TRAINEE, Christo Unavailable Lauren WELSH, Clementine Unavailable Jamar Fall DO Primary Care Provider Dheeraj JAMES, Marco A R Unavailable [facility] [address].ALEXA, Christo Unavailable Lauren WELSH, Clementine Unavailable Jamar [...] Unavailable REQUEST, NONE LISTED Consulting Unavaila ble Lauren WELSH, Clementine Unavailable Jamar Fall MD Primary Care Provider Anthony SCRUGGS Attending Unavailable Anthony SCRUGGS Attending Unavailable Anthony SCRUGGS Attending Unavailable Ball DO, Jamar E Primary Care Provider JUAN DAVID, JAMAR Lopez Primary Care Unavailable MARCO A ESQUEDA R Referring Unavailable BALL, JAMAR E Primary Care Unavailable CHRISTO HOWARD Attending Unavailable DHEERAJ, MARCO A R Referring Unavailable BALL, JAMAR E Primary Care Unavailable BALL, JAMAR E Primary Care Unavailable ESQUEDA, MARCO A R Referring Unavailable ESQUEDA, MARCO A R Referring Unavailable BALL, JAMAR E Primary Care Unavailable ESQUEDA, MARCO A R Referring Unavailable BALL, JAMAR E Primary Care Unavailable LYNNE ALARCON Attending Unavailable BALL, JAMAR E Primary Care Unavailable ESQUEDA, MARCO A R Referring Unavailable BALL, JAMAR E Primary Care Unavailable CHRISTO HOWARD Attending Unavailable BALL, JAMAR E Primary Care Unavailable ESQUEDA, MARCO A R Referring Unavailable BALL, JAMAR E Primary Care Unavailable BALL, JAMAR E Primary Care Unavailable DHEERAJ, MARCO A R Referring Unavailable ESQUEDA, MARCO A R Referring Unavailable ESQUEDA, MARCO A R Attending Unavailable BALL, JAMAR E Primary Care Unavailable LONG BOO Attending Unavailable DHEERAJ, MARCO A R Referring Unavailable EMELINA LOUIS Attending Unavailable BALL, JAMAR E Referring Unavailable PABLO CHRISTINA Attending Unavailable LONG BOO Attending Unavailable LAEXIA FRANCO Attending Unavailable ELTABRIDGER STEVENS Attending Unavailable LORA ENGLISH Attending Unavailable Allergies Allergy Classification Reported Allergen(s) Allergy Type Date of Onset Reaction(s) Facility (18 sources) Penicillins; Translations: [PENICILLINS] Drug Allergy 1 Unknown [facility] (20 sources) Penicillin G; Translations: [penicillin G benzathine] Drug Allergy 1 Unknown (qualifier value) [facility] (18 sources) Penicillins Drug Allergy 5 Unknown [facility] (19 sources) Simvastatin; Translations: [SIMVASTATIN] Drug Allergy 2 Unknown [facility] (1 source) Penicillins Drug allergy (disorder) 5 [facility] (1 source) Penicillin Drug Allergy Unknown [facility] (1 source) Allergies Reconciled Propensity to adverse reactions Unknown [facility] (1 source) patient allergy list reviewed by nurse or physicia Propensity to adverse reactions 9 Comment:Done [facility] Other (3 sources) Simvastatin Propensity to adverse reactions 2 [facility] Medications Current Medications Medication Drug Class(es) Dates Sig (Normalized) Sig (Original) Aspir-81 81 MG (20 sources) take 1 tablet by mouth once daily Aspir-81 81 MG 1 tablet Orally Once a day Active aspirin 81 mg delayed release oral tablet (20 sources) Platelet Aggregation Inhibitor, Nonsteroidal Anti-inflammatory Drug Start: 09-08-2023 take 81 mg by mouth once daily Aspirin Active 81 MG PO Daily September 08, 2023 1:00am Start: 02-04-2019 take 1 mg by mouth once daily aspirin 81 mg oral tablet mg tab(s), Oral, Daily, Refills(s) 0 Start Date: 02/04/19 Status: Ordered Comment on above: Take 81 mg by mouth once daily. atorvastatin 40 mg oral tablet (20 sources) HMG-CoA Reductase Inhibitor Start: take 40 mg by mouth once daily Atorvastatin Active 40 MG PO Daily September 08, 2023 3:49pm Start: 09-06-2023 End: 09-08-2023 take 1 tablet by mouth once daily in the evening Atorvastatin Discontinued 0 .ROUTE .COMPLEX 90 September 06, 2023 9:32am September 08, 2023 3:51pm TAKE 1 TABLET BY MOUTH ONCE EVERY EVENING Start: 04-17-2023 End: 09-06-2023 take 40 mg by mouth once daily in the evening Atorvastatin Discontinued 40 MG PO Every evening September 06, 2023 1:00am September 06, 2023 9:32am Start: 02-04-2019 take 1 tablet by anupama once daily atorvastatin 20 mg Tab 20 mg = 1 tab(s), Oral, Daily, Refills(s) 0 Start Date: 02/04/19 Status: Ordered Comment on above: Take 20 mg by mouth once daily. Take 40 mg by mouth once daily. calcium citrate 950 mg / cholecalciferol 250 unt oral tablet (15 sources) Vitamin D Start: 04-28-20 take 2 tablets by mouth once daily Calcium Citrate-Vitamin D3 200 mg-6.25 mcg (250 unit) tab Take 2 tablets by mouth once daily. 04/28/2022 Active Comment on above: Take 2 tablets by mo [facility] once daily. Contour Next - (20 sources) Contour Next - u se one test strip to check home blood sugar transcutaneous daily for 30 days Active Contour Next - u se one test strip to check home blood sugar daily Active enzalutamide 40 mg oral tablet (20 sources) Androgen Receptor Inhibitor Start: 04-01-2024 take 4 tablets by mouth once daily enzalutamide (XTANDI) 40 mg tablet Take 4 tablets (160 mg) by mouth once daily. 120 tablet 11 04/01/2024 Active Start: 05-08-2023 End: 04-01-2024 take 2 tablets by mouth once daily enzalutamide (XTANDI) 80 mg tablet TAKE 2 TABLETS (160 MG) BY MOUTH ONCE DAILY. 60 tablet 11 04/01/2024 Active Start: 05-13-2022 take 1 mg by mouth [...] 14 days. 40 g 0 08/28/2023 Active glimepiride 1 mg oral tablet (20 sources) Sulfonylurea Start: 09-08-2023 take 0.5 mg by mouth once daily Glimepiride Active 0.5 MG PO Daily September 08, 2023 1:00am Start: 10-15-2021 take 0.5 mg by mouth once kristi y GLIMEPIRIDE ORAL Take 0.5 mg by mouth once daily. 10/15/2021 Active Start: 10-15-2021 take 0.5 tablet by m outh once daily at breakfast glimepiride (AMARYL) 1 [...] Take 0.5 mg by mouth once daily. hydroCHLOROthiazide 12.5 mg / lisinopril 20 mg oral tablet (20 sources) Thiazide Diuretic, Angiotensin Converting Enzyme Inhibitor Start: take 1 tablet by mouth once daily Lisinopril-Hyd rochlorothiazi de Active 0 .ROUTE .COMPLEX 90 October 12, 2023 9:34am TAKE 1 TABLET BY MOUTH EVERY DAY Start: 02-04-2019 End: 10-12-2023 take 1 tablet by mouth once daily Lisinopril-Hydrochlorothiazide Discontin ued 1 TAB PO Daily September 08, 2023 1:00am October 12, 2023 9:34am take 1 tablet by anupama th in the morning lisinopril-hydroCHLOROthiazide 20-12.5 M G tablet Take 1 tablet by mouth in the morning. 0 Active take 1 tablet by anupama th once daily Lisinopril-hydroCHLOROthiazide 20-12.5 M G TAKE 1 TABLET BY MOUTH EVERY DAY Active Comment on above: Take 1 tablet by anupama th once daily. ipratropium bromide 0.042 mg/actuat metered dose nasal spray (10 sources) Anticholinergic Start: 10-20-2023 ipratropium Nasal 0.06% [place] Refill(s) 0 Start Date: 10/20/23 Status: Ordered Start: 06-05-2023 End: 06-04-2024 ipratropium bromide (ATROVEN T) 42 mcg (0.06 %) nasal spray 2 Sprays. 06/05/2023 06/04/2024 Active Start: 06-05-2023 End: 06-04-2024 take 2 spray(s) nasal route in the morning, then take 2 spray(s) nasal route in the evening, then take 2 spray(s) nasal route at bedtime ipratropium (Atrovent) 0.06 % nasal spray Indications: Vasomotor rhinitis Administer 2 sprays into each nostril in the morning and 2 sprays in the evening and 2 sprays before bedtime. 45 mL 3 06/05/2023 06/04/2024 Active Comment on above: 2 Sprays. metFORMIN hydrochloride 500 mg oral tablet (20 sources) Biguanide Start: 09-08-2023 take 1000 mg by mouth once daily Metformin Active 1000 MG PO Daily September 08, 2023 1:00am Start: 08-17-2021 take 1 tablet by anupama th once daily metFORMIN (GLUCOPHAGE) 1,000 mg tablet Take 1,000 mg by mouth once daily. 08/17/2021 Active Start: 08-17-2021 take 2 tablets by mo [facility] once daily at mealtime metFORMIN (GLUCOPHAGE) 500 mg tablet TAKE 2 TABLETS BY MOUTH ONCE A DAY WITH FOOD 0 08/17/2021 Active Start: 05-14-2021 take 1 [...] on above: TAKE 2 TABLETS BY MO [facility] ONCE A DAY WITH FOOD Take 1,000 mg by anupama th once daily. Metoprolol (20 sources) beta-Adrenergic Jose Start: 12-04-2023 take 1 tablet by mouth twice daily Metoprolol Tartrate Active 0 .ROUTE .COMPLEX 180 December 04, 2023 1:04pm TAKE 1 TABLET BY MOUTH TWICE A DAY Start: 09-08-2023 End: 12-04-2023 take 25 mg by mouth twice daily Metoprolol Tartrate Di scontinued 25 MG PO Twice daily September 08, 2023 1:00am December 04, 2023 1:04pm Start: 02-04-2019 take 1 tablet by anupama every twenty-four hours metoprolol succinate ER (TOPROL XL) 25 mg 24 hr tablet Take by mouth. 02/04/2019 Active Start: 02-04-2019 take 1 tablet by anupama twice daily metoprolol 25 mg ER Tab [...] by mouth twice daily. Take by mouth. Ytziwpblwtelt-Vupejccn-Mrcyn n (MULTIVITAMIN 50 PLUS) tab (20 sources) Multivitamins-Mi nerals-Lut ein (MULTIVITAMIN 50 PLUS) tab Take 1 tablet by mouth once daily. Active Multivitamins-Mi nerals-Lutein (MULTIVITAMIN 50 PLUS) tab Take 1 tablet by mouth once daily. 0 Active Comment on above: Take 1 tablet by anupama th once daily. traMADol hydrochloride 50 mg oral tablet (2 sources) Opioid Agonist Start: 07-21-2022 traMADol HCl 50 MG 1 Orally every 8 hours as needed for 7 days Jul, Active Vitamin D3 (4 sources) Start: 06-22-2020 Vitamin D3 Start Date: 06/22/20 Status: Ordered [...] 1 tablet by anupama th twice daily. clopidogrel 75 mg oral tablet (2 sources) P2Y12 Platelet Inhibitor clopido grel (PLAVIX) 75 mg tablet clopidogrel 75 mg tablet 0 Active Comment on above: clopidogrel 75 mg ta blet 1.7 ml denosumab 70 mg/ml injection (1 source) RANK Ligand Inhibitor Start: 02-02-2024 End: 02-02-2024 denosumab 120 mg injection (XGEVA) Start: 02-02-2024 End: 02-02-2024 denosumab 120 mg injection ( XGEVA) docusate sodium 100 mg oral capsule (2 sources) docusate sodium (COLACE) 100 mg capsule q 24 HR. 0 Active Comment on above: q 24 HR. enteric contrast (will be provided with radiology test) (3 sources) Start: 10-28-2021 End: 10-29-2021 enteric contrast (will be provided with radiology [...] tablet (2 sources) 5-alpha Reductase Inhibitor finasteride (PROSCAR ) 5 mg tablet q 24 HR. 0 Active Comment on above: q 24 HR. furosemide 40 mg oral tablet (2 sources) Loop Diuretic furosemide (LASI X) 40 mg tablet q 24 HR. 0 Active Comment on above: q 24 HR. ibuprofen 800 mg oral tablet (2 sources) Nonsteroidal Anti-inflammatory Drug ibuprofen (MOTRIN) 8 00 mg tablet ibuprofen 800 mg tablet 0 Active Comment on above: ibuprofen 800 mg tab let iv contrast (will be provided with radiology test) (3 sources) Start: 10-29-19 End: 10-30-19 iv contrast (will be provided with radiology [...] Start: 03-15-20 23 Lidocaine Feb, 20 mg oxyCODONE hydrochloride 5 mg oral tablet (2 sources) Opioid Agonist oxyCODONE IR (ROXICODONE) 5 mg immediate release tablet q 4 HR. 0 Active Comment on above: q 4 HR. predniSONE 5 mg oral tablet (2 sources) Start: 08-23-19 22 take 1 tablet by mouth once daily [...] Date Documented Da te Episodic/Chronic Abdominal pain (3 sources) Right upper quadrant pain; Translations: [Lower abdominal pain, unspecified] Episodic Calculus of urinary tract (5 sources) History of calculus of kidney; Translations: [Personal history of urinary calculi] Onset: 04-17-2023 Episodic Cancer of prostate (20 sources) Malignant tumor of prostate; Translations: [Malignant neoplasm of prostate] Onset: 07-02-2014 08-06-2014 Chronic Comment on above: S/p Radical prostate ctomy 10/2014 and EBRT 2018 Cancer of prostate (6 sources) History of malignant neoplasm of prostate; Translations: [Personal history of malignant neoplasm of prostate] Onset: 04-14-2023 12-23-2019 Episodic Conduction disorders (18 sources) Left bundle branch block; Translations: [Other left bundle branch block] Onset: 08-25-2014 Chronic Coronary atherosclerosis and other heart disease (20 sources) Coronary arteriosclerosis; Translations: [Atherosclerotic heart disease of [place] coronary artery without angina pectoris] Onset: 10-10-2014 01-01-2019 Chronic Diabetes mellitus with complications (20 sources) Type 2 diabetes mellitus; Translations: [Type 2 diabetes mellitus with hyperglycemia] Onset: 07-17-1959 Chronic Diabetes mellitus without complication (11 sources) Type 2 diabetes mellitus without complication; Translations: [Type 2 diabetes mellitus without complications] Onset: 06-01-2023 Chronic Disorders of lipid metabolism (20 sources) Hyperlipidemia; Translations: [Hypercholesterolemi a] Onset: 07-17-1959 01-01-2019 Chronic Essential hypertension (20 sources) Hypertensive disorder; Translations: [Essential hypertension] Onset: 06-01-2023 Resolved: 06-01-2023 01-01-2019 Chronic Genitourinary symptoms and ill-defined conditions (11 sources) Microscopic hematuria; Translations: [Nocturia] Onset: 04-14-2023 [...] source) Impacted cerumen, right ear Episodic Other ear and sense organ disorders (1 source) Lesion of skin of right ear; Translations: [Disorder of right external ear, unspecified] 11-02-2023 Episodic Other eye disorders (4 sources) Anisocoria; [...] upper limb Chronic Other non-traumatic joint disorders (5 sources) Pain in right shoulder; Translations: [Right shoulder pain] Episodic Other nutritional; endocrine; and metabolic disorders [...] conditions (not mental disorders or infectious disease) (13 sources) Raised prostate specific antigen; Translations: [Rising PSA following treatment for malignant neoplasm of prostate] Onset: 11-08-2021 Episodic Other skin disorders (2 sources) Actinic keratosis; Translations: [Actinic keratosis] 08-28-2023 Episodic Other skin disorders (2 sources) Mass of skin of left upper limb; Translations: [Localized swelling, mass and lump, left upper limb] 09-12-2023 Episodic Other skin disorders (2 sources) Mass of skin of right upper limb; Translations: [Localized swelling, mass and lump, right upper limb] 09-12-2023 Episodic Other skin disorders (1 source) Localized swelling, mass and lump, left upper limb; Translations: [Localized superficial swelling, mass, or lump] 09-12-2023 Episodic Other upper respiratory disease (1 source) [...] [Obstructive sleep apnea (adult) (pediatric)] Onset: 04-03-2017 11-21-2023 Chronic Residual codes; unclassified (6 sources) Obstructive sleep apnea (adult) (pediatric); Translations: [Obstructive sleep apnea (adult)(pediatric)] Chronic Residual codes; unclassified (3 sources) Sleep apnea; Translations: [Sleep apnea, unspecified] Onset: 06-01-2023 06-01-2023 Chronic Secondary malignancies (8 sources) Secondary malignant neoplasm of bone; Translations: [Secondary malignant neoplasm of bone] Chronic Secondary malignancies (2 sources) Secondary malignant neoplasm of bone Chronic Spondylosis; intervertebral disc disorders; other back problems (20 sources) Cervical spondylosis; Translations: [Other spondylosis with radiculopathy, cervical region] Onset: 07-24-2022 Chronic Spondylosis; intervertebral disc disorders; other back problems (3 sources) Neck pain; Translations: [Cervicalgia] 11-23-2023 Episodic Sprains and strains (7 sources) Strain of [...] Test Name Value Interpretation Reference Range Facility Office Visiton 03-29-2024 Follow-up visit [id number] Pablo Felix 1945 M Date Provider Department Center 03/29/2024 Ag-LORA ENGLISH NOLVIA Roberts [facility] Family History Problem Relation Age of Onset Coronary artery disease Father Family Status - Relation Status Age at Father Level of Service:[address]205 [place] OFFICE/OUTPATIENT ESTABLISHED MOD MDM 30 MIN Normal [facility] CNOVSPon 02-02-2024 CNOVSP Visit (SP) Office (H EMASA) PABLO FELIX ([id number]) 1945 M Date Time Provider Department 02/02/24 11:30 AM LYNNE ALARCON During your visit today, we recorded the following information about you: Temperature Pulse Respiration Blood pressure 97.3 degrees 52/minute 16/minute 137/54 Weight Height 93.7 kg 1.676 m Lynne AlarconROCHELLE.DRIVER TRAINEE 02/02/2024 11:37 AM Signed PATIENT NAME: Pablo Felix DATE: February 02, 2024 PRIMARY CARE PHYSICIAN: Dr. Jamar Fall OTHER PHYSICIANS: Dr. Anthony Scruggs, Dr. Khan, [facility] Cardiology This note was copied from prior heme/onc encounter from 11/02/23. The patient's medications, allergies, past medical/surgical hx, family hx, ROS, and physical exam have all been reviewed and updated as appropriate. The interval history and assessment/plan content have been modified and are specific to today's (February 02, 2024) purpose for the visit. CC: This is a 78 year old male with metastatic prostate cancer, seen for scheduled follow-up. INTERIM HISTORY: Mr. Felix presents for follow up of his prostate CA. He remains on Xtandi and tolerates well. He receives Xgeva every 3 months and is due for this today. Has occasional diarrhea. Takes 1/2 Imodium for this which keeps it controlled. Otherwise the patient and his say he is doing well. Denies unintentional wt loss, poor appetite or energy, new/worsening bone pain, CP, SOB, swelling, bleeding. MEDICATIONS: Current Outpatient Medications Medication Sig ipratropium bromide (ATROVENT) 42 mcg (0.06 %) nasal spray 2 Sprays. enzalutamide (XTANDI) 80 mg tablet Take 2 tablets (160 mg) by mouth once daily. Calcium Citrate-Vitamin D3 200 mg-6.25 mcg (250 unit) tab Take 2 tablets by mouth once daily. metoprolol succinate ER (TOPROL XL) 25 mg 24 hr tablet Take by mouth. Tuapnorvnxdsi-Drxfvzsa-Jsxb in (MULTIVITAMIN 50 PLUS) tab Take 1 [...] paralysis, seizures or tremors. PHYSICAL EXAM: BP 137/54 Pulse (!) 52 Temp 36.3 ?C (97.3 ?F) (Temporal) Resp 16 Ht 167.6 cm (5' 5.98 ) Wt 93.7 kg (206 lb 9.1 oz) SpO2 98% BMI 33.36 kg/m? ECOG PS: 0-1 General: Alert, oriented x 3. NAD. Non-toxic appearing. Well-nourished. HEENT: No scleral icterus. Heart: HRR s1s2 Lungs: Lungs CTA, no wheezing, rales, rhonchi or crackles ,non-labored breathing. Abdominal: Abd rounded but soft, NT, ND. Extremities: No edema or cyanosis. Skin: No rashes, bruising, or petechiae. Neuro: Non-focal exam without deficits. 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 Left base margin positive for neoplasm. Seminal vesicles with no diagnostic abnormality. 2 resected lymph nodes negative for neoplasm. LABS: Hemoglobin (g/dL) Date [facility] (more content not included)... Normal [facility] Basophils Auto (Bld) [#/Vol] on 01-25-2024 Basophils (Bld) [#/Vol] 0.04 10*3/uL <0.11 [facility] Basophils/100 WBC Auto (Bld) on 01-25-2024 Basophils/100 WBC (Bld) 0.6 % [facility] Blood manual differential co mment interpretation narrativeon 01-25-2024 Manual differential comment [place] (Bld) [Interp] Auto [facility] CBC W Auto Differential pane l (Bld)on 01-25-2024 Basophils (Bld) [#/Vol] 0.04 10*3/uL Normal <0.11 [facility] Comment on above: Order Comment: Speci men Type: BLOOD SPECIMEN Ordering Facility: [facility] Address: [address] [place] [address] Performed By: #### 2 986-8 #### [facility] CLIA [id number] [address] [place] [address] [place] Basophils/100 WBC (Bld) 0.6 % Normal [facility] Comment on above: Order Comment: Speci men Type: BLOOD SPECIMEN Ordering Facility: [facility] Address: [address] [place] [address] Performed By: #### 2 986-8 #### [facility] CLIA [id number] [address] [place] [address] [place] Differential cell count method Nom (Bld) Auto Normal [facility] Comment on above: Order Comment: Speci men Type: BLOOD SPECIMEN Ordering Facility: [facility] Address: [address] [place] [address] Performed By: #### 2 986-8 #### [facility] CLIA [id number] [address] [place] [address] [place] Eosinophils (Bld) [#/Vol] 0.40 10*3/uL Normal <0.46 [facility] Comment on above: Order Comment: Speci men Type: BLOOD SPECIMEN Ordering Facility: [facility] Address: [address] [place] [address] Performed By: #### 2 986-8 #### [facility] CLIA [id number] [address] [place] [address] [place] Eosinophils/100 WBC (Bld) 5.9 % Normal [facility] Comment on above: Order Comment: Speci men Type: BLOOD SPECIMEN Ordering Facility: [facility] Address: [address] [place] [address] Performed By: #### 2 986-8 #### [facility] CLIA [id number] [address] [place] [address] [place] Erythrocyte distribution width (RBC) [Ratio] 12.7 % Normal 11.5-15.0 [facility] Comment on above: Order Comment: Speci men Type: BLOOD SPECIMEN Ordering Facility: [facility] Address: [address] [place] [address] Performed By: #### 2 986-8 #### [facility] CLIA [id number] [address] [place] [address] [place] Hematocrit (Bld) [Volume fraction] 34.6 % Low 39.0-51.0 [facility] Comment on above: Order Comment: Speci men Type: BLOOD SPECIMEN Ordering Facility: [facility] Address: [address] [place] [address] Performed By: #### 2 986-8 #### [facility] CLIA [id number] [address] [place] [address] [place] Hemoglobin (Bld) [Mass/Vol] 11.8 g/dL Low 13.0-17.0 [facility] Comment on above: Order Comment: Speci men Type: BLOOD SPECIMEN Ordering Facility: [facility] Address: [address] [place] [address] Performed By: #### 2 986-8 #### [facility] CLIA [id number] [address] [place] [address] [place] Immature granulocytes (Bld) [#/Vol] 0.07 10*3/uL Normal <0.10 [facility] Comment on above: Order Comment: Speci men Type: BLOOD SPECIMEN Ordering Facility: [facility] Address: [address] [place] [address] Performed By: #### 2 986-8 #### [facility] CLIA [id number] [address] [place] [address] [place] Immature granulocytes/100 WBC (Bld) 1.0 % Normal [facility] Comment on above: Order Comment: Speci men Type: BLOOD SPECIMEN Ordering Facility: [facility] Address: [address] [place] [address] Performed By: #### 2 986-8 #### [facility] CLIA [id number] [address] [place] [address] [place] Lymphocytes (Bld) [#/Vol] 2.16 10*3/uL Normal 1.00-4.00 [facility] Comment on above: Order Comment: Speci men Type: BLOOD SPECIMEN Ordering Facility: [facility] Address: [address] [place] [address] Performed By: #### 2 986-8 #### [facility] CLIA [id number] [address] [place], [place] [id number] [place] Lymphocytes/100 WBC (Bld) 31.8 % Normal [facility] Comment on above: Order Comment: Speci men Type: BLOOD SPECIMEN Ordering Facility: [facility] Address: [address] [place] [address] Performed By: #### 2 986-8 #### [facility] CLIA [id number] [address] [place], [place] [id number] [place] MCH (RBC) [Entitic mass] 32.2 pg Normal 26.0-34.0 [facility] Comment on above: Order Comment: Speci men Type: BLOOD SPECIMEN [facility] [facility] Address: [address] [place] [address] Performed By: #### 2 986-8 #### [facility] CLIA [id number] [address] [place] [address] [place] MCHC (RBC) [Mass/Vol] 34.1 g/dL Normal 30.5-36.0 [facility] Comment on above: Order Comment: Speci men Type: BLOOD SPECIMEN Ordering Facility: [facility] Address: [address] [place] [address] Performed By: #### 2 986-8 #### [facility] CLIA [id number] [address] [place] [address] [place] MCV (RBC) [Entitic vol] 94.3 fL Normal 80.0-100.0 [facility] Comment on above: Order Comment: Speci men Type: BLOOD SPECIMEN Ordering Facility: [facility] Address: [address] [place] [address] Performed By: #### 2 986-8 #### [facility] CLIA [id number] [address] [place] [address] [place] Monocytes (Bld) [#/Vol] 0.60 10*3/uL Normal <0.87 [facility] Comment on above: Order Comment: Speci men Type: BLOOD SPECIMEN Ordering Facility: [facility] Address: [address] [place] [address] Performed By: #### 2 986-8 #### [facility] CLIA [id number] [address] [place] [address] [place] Monocytes/100 WBC (Bld) 8.8 % Normal [facility] Comment on above: Order Comment: Speci men Type: BLOOD SPECIMEN Ordering Facility: [facility] Address: [address] [place] [address] Performed By: #### 2 986-8 #### [facility] CLIA [id number] [address] [place] [address] [place] Neutrophils (Bld) [#/Vol] 3.53 10*3/uL Normal 1.45-7.50 [facility] Comment on above: Order Comment: Speci men Type: BLOOD SPECIMEN Ordering Facility: [facility] Address: [address] [place] [address] Performed By: #### 2 986-8 #### [facility] CLIA [id number] [address] [place] [address] [place] Neutrophils/100 WBC (Bld) 51.9 % Normal [facility] Comment on above: Order Comment: Speci men Type: BLOOD SPECIMEN Ordering Facility: [facility] Address: [address] [place] [address] Performed By: #### 2 986-8 #### [facility] CLIA [id number] [address] [place] [address] [place] Nucleated RBC (Bld) [#/Vol] 10*3/uL Normal <0.01 [facility] Comment on above: Order Comment: Speci men Type: BLOOD SPECIMEN Ordering Facility: [facility] Address: [address] [place] [address] Performed By: #### 2 986-8 #### [facility] CLIA [id number] [address] [place] [address] [place] Nucleated RBC/100 WBC (Bld) [Ratio] 0.0 /100 WBC Normal [facility] Comment on above: Order Comment: Speci men Type: BLOOD SPECIMEN Ordering Facility: [facility] Address: [address] [place] [address] Performed By: #### 2 986-8 #### [facility] CLIA [id number] [address] [place] [address] [place] Platelet mean volume (Bld) [Entitic vol] 10.3 fL Normal 9.0-12.7 [facility] Comment on above: Order Comment: Speci men Type: BLOOD SPECIMEN Ordering Facility: [facility] Address: [address] [place] [address] Performed By: #### 2 986-8 #### [facility] CLIA [id number] [address] [place] [address] [place] Platelets (Bld) [#/Vol] 184 10*3/uL Normal 150-400 [facility] Comment on above: Order Comment: Speci men Type: BLOOD SPECIMEN Ordering Facility: [facility] Address: [address] [place] [address] Performed By: #### 2 986-8 #### [facility] CLIA [id number] [address] [place] [address] [place] RBC (Bld) [#/Vol] 3.67 10*6/uL Low 4.20-6.00 [facility] Comment on above: Order Comment: Speci men Type: BLOOD SPECIMEN Ordering Facility: [facility] Address: [address] [place] [address] Performed By: #### 2 986-8 #### [facility] CLIA [id number] [address] [place] [address] [place] WBC (Bld) [#/Vol] 6.80 10*3/uL Normal 3.70-11.00 [facility] Comment on above: Order Comment: Speci men Type: BLOOD SPECIMEN Ordering Facility: [facility] Address: [address] [place] [address] Performed By: #### 2 986-8 #### [facility] CLIA [id number] [address] [place] [address] [place] Comprehensive metabolic 2000 panelon 07-11-2024 Albumin [Mass/Vol] 4.0 g/dL Normal 3.9-4.9 [facility] Comment on above: Order Comment: Speci men Type: BLOOD SPECIMEN Ordering Facility: [facility] Address: [address] [place] [address] Performed By: #### 2 986-8 #### [facility] CLIA [id number] [address] [place] [address] [place] ALP [Catalytic activity/Vol] 74 U/L Normal 38-113 [facility] Comment on above: Order Comment: Speci men Type: BLOOD SPECIMEN Ordering Facility: [facility] Address: [address] [place] [address] Performed By: #### 2 986-8 #### [facility] CLIA [id number] [address] [place] [address] [place] ALT [Catalytic activity/Vol] 18 U/L Normal 10-54 [facility] Comment on above: Order Comment: Speci men Type: BLOOD SPECIMEN Ordering Facility: [facility] Address: [address] [place] [address] Performed By: #### 2 986-8 #### [facility] CLIA [id number] [address] [place] [address] [place] Anion gap [Moles/Vol] 9 mmol/L Normal 8-15 [facility] Comment on above: Order Comment: Speci men Type: BLOOD SPECIMEN Ordering Facility: [facility] Address: [address] [place] [address] Performed By: #### 2 986-8 #### [facility] CLIA [id number] [address] [place] [address] [place] AST [Catalytic activity/Vol] 19 U/L Normal 14-40 [facility] Comment on above: Order Comment: Speci men Type: BLOOD SPECIMEN Ordering Facility: [facility] Address: [address] [place] [address] Performed By: #### 2 986-8 #### [facility] CLIA [id number] [address] [place], [place] [id number] [place] Bilirubin [Mass/Vol] 0.7 mg/dL Normal 0.2-1.3 [facility] Comment on above: Order Comment: Speci men Type: BLOOD SPECIMEN Ordering Facility: [facility] Address: [address] [place], [place] [address] Performed By: #### 2 986-8 #### [facility] CLIA [id number] [address] [place] [address] [place] Calcium [Mass/Vol] 9.9 mg/dL Normal 8.5-10.2 [facility] Comment on above: Order Comment: Speci men Type: BLOOD SPECIMEN Ordering Facility: [facility] Address: [address] [place] [address] Performed By: #### 2 986-8 #### [facility] CLIA [id number] [address] [place], [place] [address] [place] Chloride [Moles/Vol] 103 mmol/L Normal 98-107 [facility] Comment on above: Order Comment: Speci men Type: BLOOD SPECIMEN Ordering Facility: [facility] Address: [address] [place], [place] [address] Performed By: #### 2 986-8 #### [facility] CLIA [id number] [address] [place], [place] [address] [place] CO2 [Moles/Vol] 25 mmol/L Normal 22-30 [facility] Comment on above: Order Comment: Speci men Type: BLOOD SPECIMEN Ordering Facility: [facility] Address: [address] [place], [place] [address] Performed By: #### 2 986-8 #### [facility] CLIA [id number] [address] [place], [place] [address] [place] Creatinine [Mass/Vol] 0.79 mg/dL Normal 0.73-1.22 [facility] Comment on above: Order Comment: Nicanor camilo Type: BLOOD SPECIMEN Ordering Facility: [facility] Address: [address] [place] [address] Performed By: #### 2 986-8 #### [facility] CLIA [id number] [address] [place] [address] [place] Creatinine and Glomerular filtration rate.predicted panel (S/P/Bld) 91 mL/min/1.73m??? Normal >=60 [facility] Comment on above: Order Comment: Nicanor camilo Type: BLOOD SPECIMEN Ordering Facility: [facility] Address: [address] [place] [address] Result Comment: Renae mated Glomerular Filtration Rate [...] reflect actual GFR. Performed By: #### 2 986-8 #### [facility] CLIA [id number] [address] [place] [address] [place] Glucose [Mass/Vol] 112 mg/dL High 74-99 [facility] Comment on above: Order Comment: Nicanor camilo Type: BLOOD SPECIMEN Ordering Facility: [facility] Address: [address] [place] [address] Result Comment: The [place] [employer] (ADA) provides guidance for cutoff [...] Standards of Medical Care in Diabetes 2016, [place] [employer]. Diabetes Care. 2016.39(Suppl 1). Performed By: #### 2 986-8 #### [facility] CLIA [id number] [address] [place] [address] [place] Potassium [Moles/Vol] 5.2 mmol/L High 3.7-5.1 [facility] Comment on above: Order Comment: Speci men Type: BLOOD SPECIMEN Ordering Facility: [facility] Address: [address] [place] [address] Performed By: #### 2 986-8 #### [facility] CLIA [id number] [address] [place] [address] [place] Protein [Mass/Vol] 6.6 g/dL Normal 6.3-8.0 [facility] Comment on above: Order Comment: Speci men Type: BLOOD SPECIMEN Ordering Facility: [facility] Address: [address] [place] [address] Performed By: #### 2 986-8 #### [facility] CLIA [id number] [address] [place] [address] [place] Sodium [Moles/Vol] 137 mmol/L Normal 136-144 [facility] Comment on above: Order Comment: Speci men Type: BLOOD SPECIMEN Ordering Facility: [facility] Address: [address] [place] [address] Performed By: #### 2 986-8 #### [facility] CLIA [id number] [address] [place] [address] [place] Urea nitrogen [Mass/Vol] 15 mg/dL Normal 9-24 [facility] Comment on above: Order Comment: Speci men Type: BLOOD SPECIMEN Ordering Facility: [facility] Address: [address] [place] [address] Performed By: #### 2 986-8 #### [facility] CLIA [id number] [address] [place] [address] [place] Eosinophils/100 WBC Auto (Bl d)on 01-25-2024 Eosinophils/100 WBC (Bld) 5.9 % [facility] Erythrocyte distribution wid th Auto (RBC) [Ratio]on 01-25-2024 Erythrocyte distribution width (RBC) [Ratio] 12.7 % 11.5-15.0 [facility] Hematocrit Auto (Bld) [Volum e fraction]on 01-25-2024 Hematocrit (Bld) [Volume fraction] 34.6 % Low 39.0-51.0 [facility] Hemoglobin [Mass/volume] in Bloodon 01-25-2024 Hemoglobin (Bld) [Mass/Vol] 11.8 g/dL Low 13.0-17.0 [facility] - Chemistry and C hemistry - challengeon 01-25-2024 Albumin [Mass/Vol] 4.0 g/dL 3.9-4.9 [facility] ALP [Catalytic activity/Vol] 74 U/L 38-113 [facility] ALT [Catalytic activity/Vol] 18 U/L 10-54 [facility] AST [Catalytic activity/Vol] 19 U/L 14-40 [facility] Bilirubin [Mass/Vol] 0.7 mg/dL 0.2-1.3 [facility] Calcium [Mass/Vol] 9.9 mg/dL 8.5-10.2 [facility] Chloride [Moles/Vol] 103 mmol/L 98-107 [facility] CO2 [Moles/Vol] 25 mmol/L 22-30 [facility] Creatinine [Mass/Vol] 0.79 mg/dL 0.73-1.22 [facility] Glucose [Mass/Vol] 112 mg/dL High 74-99 [facility] Comment on above: The [place] Diab[employer] s Association (ADA) provides guidance for cutoff values for fasting glucose and random glucose. The ADA defines fasting as no caloric intake for at least 8 hours. Fasting plasma glucose results between 100 to 125 mg/dL indicate increased risk for diabetes (prediabetes).Fasting plasma glucose results greater than or equal to 126 mg/dL meet the criteria for diagnosis of diabetes. In the absence of unequivocal hyperglycemia, results should be confirmed by repeat testing. In a patient with classic symptoms of hyperglycemia or hyperglycemic crisis, random plasma glucose results greater than or equal to 200 mg/dL meet the criteria for diagnosis of diabetes.Reference: Standards of Medical Care in Diabetes 2016, [place] [employer]. Diabetes Care. 2016.39(Suppl 1). Potassium [Moles/Vol] 5.2 mmol/L High 3.7-5.1 [facility] Sodium [Moles/Vol] 137 mmol/L 136-144 [facility] Urea nitrogen [Mass/Vol] 15 mg/dL 9 [facility] - Hematology and Cell countson 01-25-2024 Eosinophils (Bld) [#/Vol] 0.40 10*3/uL <0.46 [facility] Immature granulocytes (Bld) [#/Vol] 0.07 10*3/uL <0.10 [facility] Immature granulocytes/100 WBC (Bld) 1.0 % [facility] Leukocytes [#/volume] correc jomar for nucleated erythrocytes in Blood by Automated counon 01-25-2024 WBC corrected for nucl RBC Auto (Bld) [#/Vol] 6.80 k/uL 3.70-11.00 [facility] Lymphocytes Auto (Bld) [#/Vo l]on 01-25-2024 Lymphocytes (Bld) [#/Vol] 2.16 10*3/uL 1.00-4.00 [facility] Lymphocytes/100 WBC Auto (Bl d)on 01-25-2024 Lymphocytes/100 WBC (Bld) 31.8 % [facility] MCH Auto (RBC) [Entitic mass ]on 01-25-2024 MCH (RBC) [Entitic mass] 32.2 pg 26.0-34.0 [facility] MCHC Auto (RBC) [Mass/Vol]on 01-25-2024 MCHC (RBC) [Mass/Vol] 34.1 g/dL 30.5-36.0 [facility] MCV Auto (RBC) [Entitic vol] on 01-25-2024 MCV (RBC) [Entitic vol] 94.3 fL 80.0-100.0 [facility] Monocytes Auto (Bld) [#/Vol] on 01-25-2024 Monocytes (Bld) [#/Vol] 0.60 10*3/uL <0.87 [facility] Monocytes/100 WBC Auto (Bld) on 01-25-2024 Monocytes/100 WBC (Bld) 8.8 % [facility] Neutrophils Auto (Bld) [#/Vo l]on 01-25-2024 Neutrophils (Bld) [#/Vol] 3.53 10*3/uL 1.45-7.50 [facility] Neutrophils/100 WBC Auto (Bl d)on 01-25-2024 Neutrophils/100 WBC (Bld) 51.9 % [facility] No Panel Informationon 01-24 Estimated GFR (CKD-EPI) 91 mL/min/1.73m??? >=60 [facility] Comment on above: Estimated Glomerular Filtration Rate (eGFR) is calculated using the 2020 CKD-EPI creatinine equation. This equation utilizes serum creatinine, sex, and age as parameters. The creatinine assay has traceable calibration to isotope dilution-mass spectrometry. Refer to KDIGO guidelines for clinical interpretation. In patients with unstable renal function, e.g. those with acute kidney injury, the eGFR may not accurately reflect actual GFR. Prostate Specific Antigen 0.15 ng/mL <2.60 [facility] Comment on above: Total PSA test metho dology used is the Electrochemiluminescence Immunoassay by [employer]. Total PSA values by differing methodologies cannot be interchanged. Nucleated RBC Auto (Bld) [#/ Vol]on 01-25-2024 Nucleated RBC (Bld) [#/Vol] 10*3/uL <0.01 [facility] Nucleated erythrocytes [Pres ence] in Blood by Automated counton 01-25-2024 Nucleated RBC Auto Ql (Bld) 0.0 /100{WBC} [facility] PSA SerPl-mCncon 01-25-2024 Prostate specific Ag [Mass/Vol] 0.15 ng/mL Normal <2.60 [facility] Comment on above: Order Comment: Speci men Type: BLOOD SPECIMENOrdering Facility: [facility] Address: [address] [place] [address] Result Comment: Tota l PSA test methodology used is the Electrochemiluminescence Immunoassay by [employer]. Total PSA values by differing methodologies cannot be interchanged. Performed By: #### 2 857-1 ####[facility] [id number] [place] [id number] [place] Platelet mean volume Auto (B ld) [Entitic vol]on 01-25-2024 Platelet mean volume (Bld) [Entitic vol] 10.3 fL 9.0-12.7 [facility] Platelets Auto (Bld) [#/Vol] on 01-25-2024 Platelets (Bld) [#/Vol] 184 10*3/uL 150-400 [facility] Protein [Mass/volume] in Ser um or Plasmaon 01-25-2024 Protein [Mass/Vol] 6.6 g/dL 6.3-8.0 [facility] RBC Auto (Bld) [#/Vol]on RBC (Bld) [#/Vol] 3.67 10*6/uL Low 4.20-6.00 [facility] Serum or plasma anion gap de terminationon 01-25-2024 Anion gap [Moles/Vol] 9 mmol/L 8-15 [facility] Consultation Noteon 11-07-19 24 Consultation Note [id number]#[id number] Beul[facility] CNOVSPon 11-02-2023 CNOVSP Visit (SP) Office (H EMASA) PABLO FELIX ([id number]) 1945 M Date Time Provider Department 11/02/23 9:30 AM CHRISTO HOWARD During your visit today, we recorded the following information about you: Temperature Pulse Respiration Blood pressure 97.8 degrees 56/minute 16/minute 123/44 Weight Height 92.9 kg 1.676 m Christo Howard APRN.DRIVER TRAINEE 11/03/2023 11:11 AM Signed PATIENT NAME: Pablo Felix DATE: 11/02/2023 PRIMARY CARE PHYSICIAN: Dr. Jamar Fall OTHER PHYSICIANS: Dr. Anthony Scruggs, Dr. Khan, [facility] Cardiology Portions of this encounter note have been copied from the note from 08/03/2023 and has been updated where appropriate, and reflect my current medical decision making from today. CC: This is a 78 year old male with metastatic prostate cancer, seen for scheduled follow-up. INTERIM HISTORY: Pablo Felix returns for follow-up. He remains on Xtandi 160 mg daily and is tolerating it well. He denies any significant bleeding and side effects from the Xtandi. He has occasional diarrhea and takes occasional Imodium. He denies fevers, chills, night sweats and signs/symptoms of infection. No bleeding or abnormal bruising. He offers no new complaints today. No new issues, problems or concerns. MEDICATIONS: Current Outpatient Medications Medication Sig ipratropium bromide (ATROVENT) 42 mcg (0.06 %) nasal spray 2 Sprays. enzalutamide (XTANDI) 80 mg tablet Take 2 tablets (160 mg) by mouth once daily. Calcium Citrate-Vitamin D3 200 mg-6.25 mcg (250 unit) tab Take 2 tablets by mouth once daily. metoprolol succinate ER (TOPROL XL) 25 mg 24 hr tablet Take by mouth. Blnoqlacmvufz-Ayoqvpdl-Jhqq in (MULTIVITAMIN 50 PLUS) tab Take 1 [...] seizures or tremors. PHYSICAL EXAM: BP (!) 123/44 Pulse (!) 56 Temp 36.6 ?C (97.8 ?F) (Temporal) Resp 16 Ht 167.6 cm (5' 5.98 ) Wt 92.9 kg (204 lb 12.9 oz) SpO2 97% BMI 33.07 kg/m? 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 Left base margin positive for neoplasm. Seminal vesicles with no diagnostic abnormality. 2 resected lymph nodes negative for neoplasm. LABS: Hem (more content not included)... [facility] Bas[facility] Auto (Bld) [#/Vol] on 10-30-2023 Basophils (Bld) [#/Vol] 0.04 10*3/uL <0.11 [facility] Basophils/100 WBC Auto (Bld) on 10-30-2023 Basophils/100 WBC (Bld) 0.5 % [facility] Blood manual differential co mment interpretation narrativeon 10-30-2023 Manual differential comment [place] (Bld) [Interp] Auto [facility] CBC W Auto Differential pane l (Bld)on 10-30-2023 Basophils (Bld) [#/Vol] 0.04 10*3/uL Normal <0.11 [facility] Comment on above: Order Comment: Speci men Type: BLOOD SPECIMENOrdering Facility: [facility] Address: [address] [place] [address] Performed By: #### 5 7021-8 ####[facility] [id number] [place] [address] Basophils/100 WBC (Bld) 0.5 % Normal [facility] Comment on above: Order Comment: Speci men Type: BLOOD SPECIMENOrdering Facility: [facility] Address: [address] [place] [address] Performed By: #### 5 7021-8 ####[facility] [id number] [place] [address] Differential cell count method Nom (Bld) Auto Normal [facility] Comment on above: Order Comment: Speci men Type: BLOOD SPECIMENOrdering Facility: [facility] Address: [address] [place] [address] Performed By: #### 5 7021-8 ####[facility] [id number] [place] [address] Eosinophils (Bld) [#/Vol] 0.35 10*3/uL Normal <0.46 [facility] Comment on above: Order Comment: Speci men Type: BLOOD SPECIMENOrdering Facility: [facility] Address: [address] [place] [address] Performed By: #### 5 7021-8 ####[facility] [id number] [place] [address] Eosinophils/100 WBC (Bld) 4.3 % Normal [facility] Comment on above: Order Comment: Speci men Type: BLOOD SPECIMENOrdering Facility: [facility] Address: [address] [place] [address] Performed By: #### 5 7021-8 ####[facility] [id number] [place] [address] Erythrocyte distribution width (RBC) [Ratio] 12.8 % Normal 11.5-15.0 [facility] Comment on above: Order Comment: Speci men Type: BLOOD SPECIMENOrdering Facility: [facility] Address: [address] [place] [address] Performed By: #### 5 7021-8 ####[facility] [id number] [place] [address] Hematocrit (Bld) [Volume fraction] 35.8 % Low 39.0-51.0 [facility] Comment on above: Order Comment: Speci men Type: BLOOD SPECIMENOrdering Facility: [facility] Address: [address] [place] [address] Performed By: #### 5 7021-8 ####[facility] [id number] [place] [address] Hemoglobin (Bld) [Mass/Vol] 12.2 g/dL Low 13.0-17.0 [facility] Comment on above: Order Comment: Speci men Type: BLOOD SPECIMENOrdering Facility: [facility] Address: [address] [place] [address] Performed By: #### 5 7021-8 ####[facility] [id number] [place] [address] Immature granulocytes (Bld) [#/Vol] 0.04 10*3/uL Normal <0.10 [facility] Comment on above: Order Comment: Speci men Type: BLOOD SPECIMENOrdering Facility: [facility] Address: [address] [place] [address] Performed By: #### 5 7021-8 ####[facility] [id number] [place] [address] Immature granulocytes/100 WBC (Bld) 0.5 % Normal [facility] Comment on above: Order Comment: Speci men Type: BLOOD SPECIMENOrdering Facility: [facility] Address: [address] [place] [address] Performed By: #### 5 7021-8 ####[facility] [id number] [place] [address] Lymphocytes (Bld) [#/Vol] 1.36 10*3/uL Normal 1.00-4.00 [facility] Comment on above: Order Comment: Speci men Type: BLOOD SPECIMENOrdering Facility: [facility] Address: [address] [place] [address] Performed By: #### 5 7021-8 ####[facility] LABCL[facility] [id number] [place] [address] Lymphocytes/100 WBC (Bld) 16.6 % Normal [facility] Comment on above: Order Comment: Speci men Type: BLOOD SPECIMENOrdering Facility: [facility] Address: [address] [place] [address] Performed By: #### 5 7021-8 ####[facility] LABCLIA [id number] [place] [address] MCH (RBC) [Entitic mass] 31.3 pg Normal 26.0-34.0 [facility] Comment on above: Order Comment: Speci men Type: BLOOD SPECIMENOrdering Facility: [facility] Address: [address] [place] [address] Performed By: #### 5 7021-8 ####[facility] LABCLIA [id number] [place] [address] MCHC (RBC) [Mass/Vol] 34.1 g/dL Normal 30.5-36.0 [facility] Comment on above: Order Comment: Speci men Type: BLOOD SPECIMENOrdering Facility: [facility] Address: [address] [place] [address] Performed By: #### 5 7021-8 ####[facility] LABCLIA [id number] [place] [address] MCV (RBC) [Entitic vol] 91.8 fL Normal 80.0-100.0 [facility] Comment on above: Order Comment: Speci men Type: BLOOD SPECIMENOrdering Facility: [facility] Address: [address] [place] [address] Performed By: #### 5 7021-8 ####[facility] LABCLIA [id number] [place] [address] Monocytes (Bld) [#/Vol] 0.62 10*3/uL Normal <0.87 [facility] Comment on above: Order Comment: Speci men Type: BLOOD SPECIMENOrdering Facility: [facility] Address: [address] [place] [address] Performed By: #### 5 7021-8 ####[facility] LABCLIA [id number] [place] [address] Monocytes/100 WBC (Bld) 7.6 % Normal [facility] Comment on above: Order Comment: Speci men Type: BLOOD SPECIMENOrdering Facility: [facility] Address: [address] [place] [address] Performed By: #### 5 7021-8 ####[facility] LABCLIA [id number] [place] [address] Neutrophils (Bld) [#/Vol] 5.78 10*3/uL Normal 1.45-7.50 [facility] Comment on above: Order Comment: Speci men Type: BLOOD SPECIMENOrdering Facility: [facility] Address: [address] [place] [address] Performed By: #### 5 7021-8 ####[facility] LABCLIA [id number] [place] [address] Neutrophils/100 WBC (Bld) 70.5 % Normal [facility] Comment on above: Order Comment: Speci men Type: BLOOD SPECIMENOrdering Facility: [facility] Address: [address] [place] [address] Performed By: #### 5 7021-8 ####[facility] LABCLIA [id number] [place] [address] Nucleated RBC (Bld) [#/Vol] 10*3/uL Normal <0.01 [facility] Comment on above: Order Comment: Speci men Type: BLOOD SPECIMENOrdering Facility: [facility] Address: [address] [place] [address] Performed By: #### 5 7021-8 ####[facility] LABCLIA [id number] [place] [address] Nucleated RBC/100 WBC (Bld) [Ratio] 0.0 /100 WBC Normal [facility] Comment on above: Order Comment: Speci men Type: BLOOD SPECIMENOrdering Facility: [facility] Address: [address] [place] [address] Performed By: #### 5 7021-8 ####[facility] LABCLIA [id number] [place] [address] Platelet mean volume (Bld) [Entitic vol] 9.5 fL Normal 9.0-12.7 [facility] Comment on above: Order Comment: Speci men Type: BLOOD SPECIMENOrdering Facility: [facility] Address: [address] [place] [address] Performed By: #### 5 7021-8 ####[facility] LABCLIA [id number] [place] [address] Platelets (Bld) [#/Vol] 192 10*3/uL Normal 150-400 [facility] Comment on above: Order Comment: Speci men Type: BLOOD SPECIMENOrdering Facility: [facility] Address: [address] [place] [address] Performed By: #### 5 7021-8 ####[facility] LABCLIA [id number] [place] [address] RBC (Bld) [#/Vol] 3.90 10*6/uL Low 4.20-6.00 [facility] Comment on above: Order Comment: Speci men Type: BLOOD SPECIMENOrdering Facility: [facility] Address: [address] [place] [address] Performed By: #### 5 7021-8 ####[facility] LABCLIA [id number] [place] [address] WBC (Bld) [#/Vol] 8.19 10*3/uL Normal 3.70-11.00 [facility] Comment on above: Order Comment: Speci men Type: BLOOD SPECIMENOrdering Facility: [facility] Address: [address] [place] [address] Performed By: #### 5 7021-8 ####[facility] LABCLIA [id number] [place] [address] Comprehensive metabolic 2000 panelon 10-30-2023 Albumin [Mass/Vol] 4.1 g/dL Normal 3.9-4.9 [facility] Comment on above: Order Comment: Speci men Type: BLOOD SPECIMEN Ordering Facility: [facility] Address: [address] [place] [address] Performed By: #### 2 986-8 #### [facility] CLIA [id number] [address] [place] [address] [place] ALP [Catalytic activity/Vol] 75 U/L Normal 38-113 [facility] Comment on above: Order Comment: Speci men Type: BLOOD SPECIMEN Ordering Facility: [facility] Address: [address] [id number] Performed By: #### 2 986-8 #### [facility] CLIA [id number] [address] [place] [id number] [place] ALT [Catalytic activity/Vol] 16 U/L Normal 10-54 [facility] Comment on above: Order Comment: Speci men Type: BLOOD SPECIMEN Ordering Facility: [facility] Address: [address] [place] [address] Performed By: #### 2 986-8 #### [facility] CLIA [id number] [address] [place] [address] [place] Anion gap [Moles/Vol] 13 mmol/L Normal 9-18 [facility] Comment on above: Order Comment: Speci men Type: BLOOD SPECIMEN [facility]ing [facility]: [facility] Address: [address] [place] [address] Performed By: #### 2 986-8 #### [facility] CLIA [id number] [address] [place] [address] [place] AST [Catalytic activity/Vol] 16 U/L Normal 14-40 [facility] Comment on above: Order Comment: Speci men Type: BLOOD SPECIMEN [facility]ing [facility]: [facility] Address: [address] [place] [address] Performed By: #### 2 986-8 #### [facility] CLIA [id number] [address] [place] [address] [place] Bilirubin [Mass/Vol] 0.7 mg/dL Normal 0.2-1.3 [facility] Comment on above: Order Comment: Speci men Type: BLOOD SPECIMEN [facility]ing Facility: [facility] Address: [address] [place] [address] Performed By: #### 2 986-8 #### [facility] CLIA [id number] [address] [place] [address] [place] Calcium [Mass/Vol] 9.8 mg/dL Normal 8.5-10.2 [facility] Comment on above: Order Comment: Speci men Type: BLOOD SPECIMEN [facility]: [facility] Address: [address] [place] [address] Performed By: #### 2 986-8 #### [facility] CLIA [id number] [address] [place] [address] [place] Chloride [Moles/Vol] 103 mmol/L Normal 97-105 [facility] Comment on above: Order Comment: Speci men Type: BLOOD SPECIMEN [facility] Facility: [facility] Address: [address] [place] [address] Performed By: #### 2 986-8 #### [facility] CLIA [id number] [address] [place] [address] [place] CO2 [Moles/Vol] 24 mmol/L Normal 22-30 [facility] Comment on above: Order Comment: Speci men Type: BLOOD SPECIMEN [facility]: [facility] Address: [address] [place] [address] Performed By: #### 2 986-8 #### [facility] CLIA [id number] [address] [place] [address] [place] Creatinine [Mass/Vol] 0.88 mg/dL Normal 0.73-1.22 [facility] Comment on above: Order Comment: Speci men Type: BLOOD SPECIMEN Ordering Facility: [facility] Address: [address] [place] [address] Performed By: #### 2 986-8 #### [facility] CLIA [id number] [address] [place] [address] [place] Creatinine and Glomerular filtration rate.predicted panel (S/P/Bld) 89 mL/min/1.73m??? Normal >=60 [facility] Comment on above: Order Comment: Speci men Type: BLOOD SPECIMEN [facility]ing Facility: [facility] Address: [address] [place] [address] Result Comment: Renae mated Glomerular Filtration Rate [...] reflect actual GFR. Performed By: #### 2 986-8 #### [facility] CLIA [id number] [address] [place] [address] [place] Glucose [Mass/Vol] 128 mg/dL High 74-99 [facility] Comment on above: Order Comment: Specgarett camilo Type: BLOOD SPECIMEN Ordering Facility: [facility] Address: [address] [place] [address] Result Comment: The [place] [employer] (ADA) provides guidance for cutoff [...] Standards of Medical Care in Diabetes 2016, [place] [employer]. Diabetes Care. 2016.39(Suppl 1). Performed By: #### 2 986-8 #### [facility] CLIA [id number] [address] [place] [address] [place] Potassium [Moles/Vol] 4.8 mmol/L Normal 3.7-5.1 [facility] Comment on above: Order Comment: Nicanor camilo Type: BLOOD SPECIMEN Ordering Facility: [facility] Address: [address] [place] [address] Performed By: #### 2 986-8 #### [facility] CLIA [id number] [address] [place] [address] [place] Protein [Mass/Vol] 6.5 g/dL Normal 6.3-8.0 [facility] Comment on above: Order Comment: Speci men Type: BLOOD SPECIMEN Ordering Facility: [facility] Address: [address] [place] [address] Performed By: #### 2 986-8 #### [facility] CLIA [id number] [address] [place] [address] [place] Sodium [Moles/Vol] 140 mmol/L Normal 136-144 [facility] Comment on above: Order Comment: Speci men Type: BLOOD SPECIMEN Ordering Facility: [facility] Address: [address] [place] [address] Performed By: #### 2 986-8 #### [facility] CLIA [id number] [address] [place] [address] [place] Urea nitrogen [Mass/Vol] 18 mg/dL Normal 9-24 [facility] Comment on above: Order Comment: Speci men Type: BLOOD SPECIMEN Ordering Facility: [facility] Address: [address] [place] [address] Performed By: #### 2 986-8 #### [facility] CLIA [id number] [address] [place] [address] [place] Eosinophils/100 WBC Auto (Bl d)on 10-30-2023 Eosinophils/100 WBC (Bld) 4.3 % [facility] Erythrocyte distribution wid th Auto (RBC) [Ratio]on 10-30-2023 Erythrocyte distribution width (RBC) [Ratio] 12.8 % 11.5-15.0 [facility] Hematocrit Auto (Bld) [Volum e fraction]on 10-30-2023 Hematocrit (Bld) [Volume fraction] 35.8 % 39.0-51.0 [facility] Hemoglobin [Mass/volume] in Bloodon 10-30-2023 Hemoglobin (Bld) [Mass/Vol] 12.2 g/dL 13.0-17.0 [facility] Laboratory - Chemistry and C hemistry - challengeon 10-30-2023 Albumin [Mass/Vol] 4.1 g/dL 3.9-4.9 [facility] ALP [Catalytic activity/Vol] 75 U/L 38-113 [facility] ALT [Catalytic activity/Vol] 16 U/L 10-54 [facility] AST [Catalytic activity/Vol] 16 U/L 14-40 [facility] Bilirubin [Mass/Vol] 0.7 mg/dL 0.2-1.3 [facility] Calcium [Mass/Vol] 9.8 mg/dL 8.5-10.2 [facility] Chloride [Moles/Vol] 103 mmol/L 97-105 [facility] CO2 [Moles/Vol] 24 mmol/L 22-30 [facility] Creatinine [Mass/Vol] 0.88 mg/dL 0.73-1.22 [facility] Glucose [Mass/Vol] 128 mg/dL 74-99 [facility] Comment on above: The [place] Diab[employer] s Association (ADA) provides guidance for cutoff values for fasting glucose and random glucose. The ADA defines fasting as no caloric intake for at least 8 hours. Fasting plasma glucose results between 100 to 125 mg/dL indicate increased risk for diabetes (prediabetes).Fasting plasma glucose results greater than or equal to 126 mg/dL meet the criteria for diagnosis of diabetes. In the absence of unequivocal hyperglycemia, results should be confirmed by repeat testing. In a patient with classic symptoms of hyperglycemia or hyperglycemic crisis, random plasma glucose results greater than or equal to 200 mg/dL meet the criteria for diagnosis of diabetes.Reference: Standards of Medical Care in Diabetes 2016, [place] [employer]. Diabetes Care. 2016.39(Suppl 1). Potassium [Moles/Vol] 4.8 mmol/L 3.7-5.1 [facility] Sodium [Moles/Vol] 140 mmol/L 136-144 [facility] Urea nitrogen [Mass/Vol] 18 mg/dL 9-24 [facility] Laboratory - Hematology and Cell countson 10-30-2023 Eosinophils (Bld) [#/Vol] 0.35 10*3/uL <0.46 [facility] Immature granulocytes (Bld) [#/Vol] 0.04 10*3/uL <0.10 [facility] Immature granulocytes/100 WBC (Bld) 0.5 % [facility] Leukocytes [#/volume] correc jomar for nucleated erythrocytes in Blood by Automated counon 10-30-2023 WBC corrected for nucl RBC Auto (Bld) [#/Vol] 8.19 k/uL 3.70-11.00 [facility] Lymphocytes Auto (Bld) [#/Vo l]on 10-30-2023 Lymphocytes (Bld) [#/Vol] 1.36 10*3/uL 1.00-4.00 [facility] Lymphocytes/100 WBC Auto (Bl d)on 10-30-2023 Lymphocytes/100 WBC (Bld) 16.6 % [facility] MCH Auto (RBC) [Entitic mass ]on 10-30-2023 MCH (RBC) [Entitic mass] 31.3 pg 26.0-34.0 [facility] MCHC Auto (RBC) [Mass/Vol]on 10-30-2023 MCHC (RBC) [Mass/Vol] 34.1 g/dL 30.5-36.0 [facility] MCV Auto (RBC) [Entitic vol] on 10-30-2023 MCV (RBC) [Entitic vol] 91.8 fL 80.0-100.0 [facility] Monocytes Auto (Bld) [#/Vol] on 10-30-2023 Monocytes (Bld) [#/Vol] 0.62 10*3/uL <0.87 [facility] Monocytes/100 WBC Auto (Bld) on 10-30-2023 Monocytes/100 WBC (Bld) 7.6 % [facility] Neutrophils Auto (Bld) [#/Vo l]on 10-30-2023 Neutrophils (Bld) [#/Vol] 5.78 10*3/uL 1.45-7.50 [facility] Neutrophils/100 WBC Auto (Bl d)on 10-30-2023 Neutrophils/100 WBC (Bld) 70.5 % [facility] No Panel Informationon 10-29 Estimated GFR (CKD-EPI) 89 mL/min/1.73m??? >=60 [facility] Comment on above: Estimated Glomerular Filtration Rate (eGFR) is calculated using the 2020 CKD-EPI creatinine equation. This equation utilizes serum creatinine, sex, and age as parameters. The creatinine assay has traceable calibration to isotope dilution-mass spectrometry. Refer to KDIGO guidelines for clinical interpretation. In patients with unstable renal function, e.g. those with acute kidney injury, the eGFR may not accurately reflect actual GFR. Prostate Specific Antigen 0.16 ng/mL <2.60 [facility] Comment on above: Total PSA test metho dology used is the Electrochemiluminescence Immunoassay by [employer]. Total PSA values by differing methodologies cannot be interchanged. Testosterone Level 78 ng/dL 193-824 [facility] Comment on above: A testosterone level in the 193-320 ng/dL range with associated clinical symptoms is considered low and may indicate hypogonadism (from ARJ 2010 363:123-135). Results >320 ng/dL are considered normal.Result rechecked. Nucleated RBC Auto (Bld) [#/ Vol]on 10-30-2023 Nucleated RBC (Bld) [#/Vol] 10*3/uL <0.01 [facility] Nucleated erythrocytes [Pres ence] in Blood by Automated counton 10-30-2023 Nucleated RBC Auto Ql (Bld) 0.0 /100{WBC} [facility] PSA SerPl-mCncon 10-30-2023 Prostate specific Ag [Mass/Vol] 0.16 ng/mL Normal <2.60 [facility] Comment on above: Order Comment: Speci men Type: BLOOD SPECIMEN Ordering Facility: [facility] Address: [address] [place] [address] Result Comment: Tota l PSA test methodology used is the Electrochemiluminescence Immunoassay by [employer]. Total PSA values by differing methodologies cannot be interchanged. Performed By: #### 2 986-8 #### [facility] CLIA [id number] [address] [place], [place] [address] [place] [address] [place] Platelet mean volume Auto (B ld) [Entitic vol]on 10-30-2023 Platelet mean volume (Bld) [Entitic vol] 9.5 fL 9.0-12.7 [facility] Platelets Auto (Bld) [#/Vol] on 10-30-2023 Platelets (Bld) [#/Vol] 192 10*3/uL 150-400 [facility] Protein [Mass/volume] in Ser um or Plasmaon 10-30-2023 Protein [Mass/Vol] 6.5 g/dL 6.3-8.0 [facility] RBC Auto (Bld) [#/Vol]on RBC (Bld) [#/Vol] 3.90 10*6/uL 4.20-6.00 [facility] Serum or plasma anion gap de terminationon 10-30-2023 Anion gap [Moles/Vol] 13 mmol/L 9-18 [facility] Testost SerPl-mCncon 024 Testosterone [Mass/Vol] 78 ng/dL Low 193-824 [facility] Comment on above: Order Comment: Speci men Type: BLOOD SPECIMEN Ordering Facility: [facility] Address: [address] [place] [address] Result Comment: A te stosterone level in the 193-320 ng/dL range with associated clinical symptoms is considered low and may indicate hypogonadism (from ARJ 2010 363:123-135). Results >320 ng/dL are considered normal. Result rechecked. Performed By: #### 2 986-8 #### [facility] CLIA [id number] [address] [place] [address] [place] [address] [place] Patient Educationon 10-20-19 24 Patient Education Oncology Prostate Cancer The prostate [...] under a microscope. This is called the [place] score and the total score can range from 6?10, indicating how likely it is that the cancer will spread (metastasize) to other parts of the body. The higher the score, the greater the likelihood that the cancer will spread. ? Lucrecia 6 or lower: This indicates that the cancer cells look similar to normal prostate cells (well differentiated). ? [place] 7: This indicates that the cancer cells [...] external be (more content not included)... Normal [facility] Urology Office/Clinic Noteon 10-20-2023 Urology Office/Clinic Note Chief Complaint 6m PSA (possible Lupron) HPI Staff 6m PSA DX: Rising PSA following Tx for Prostate Cancer, Hx of Prostate Cancer, Microscopic Hematuria & Hx of Kidney Stones 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 *Xtandi 160mg QD and Xgeva q3m. NEG KUB 04/21/[address] Esqueda 08/04/23, follow up in 3m w/PSA & Testosterone. PSA 10/09/23- <0.13 KUB 10/09/23- possible Rt Renal Stone Denies pain/burning and blood in urine. Gets up 1x/night. Voiding q3-4hrs during the day. Depends on what & how much he is drinking. Denies complications w/stream. Occasional back pain, states it radiates around the back. Does not think it is from kidney. No concerns at this time. History of Present Illness Tests reviewed: reviewed UA, KUB, and PSA. I have reviewed the previous health record information and history for this patient from Dr. Scruggs. I have reviewed and verified the staff HPI to be accurate for this encounter. There have been no associated fever, chills, flank pain, or blood in the urine. Denies any urinary infections since last encounter. Review of Systems PHQ Score Initial Depression Screen Score: 0 SCORE ROS - Provider Constitutional: denies weight loss, [...] HPI. Physical Exam Vitals & Measurements HR: 53(Peripheral) RR: 16 BP: 110/64 HT: 66 in HT: 167 cm WT: 98 kg WT: 215.6 lb BMI: 35.14 General Appearance: alert, no distress, well nourished, well developed male. Assessment/Plan 1. Rising PSA following treatment for malignant neoplasm of prostate (R97.21: Rising PSA following treatment for malignant neoplasm of prostate) PSA: 10/25/21 - 2.64 05/05/22 - 0.15 10/25/22 - 0.13 02/02/23 - 0.09 04/12/23 - 0.14 04/24/23 - 0.12 07/27/23 - 0.13 10/09/23 - <0.13 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 [place] 9 (5+4), pT2b, N0, Mo. Last Lupron administered 04/2022. Taking Xtandi. Intermittent diarrhea. Received Xgeva 08/03/23. Administered q3mos. Last saw Dr. Esqueda 08/03/23. Plan at that time was for pt to continue Xtandi and Xgeva q3mos. Pt to follow up with oncology in 3 months w/ testosterone level and PSA. Recommended that pt resume Lupron if any significant changes. Will remain off Lupron pending future PSA levels. Follow up in 6 months with PSA and possible Lupron. 2. Prostate cancer (C61: Malignant neoplasm of prostate) See #1. 3. Microscopic hematuria (R31.29: Other microscopic hematuria) S/p Cysto 08/21/15. Chronic. UA today shows trace-intact blood. Denies gross hematuria. Pt to call with visible blood in urine. 4. Kidney stones (N20.0: Calculus of kidney) KUB 04/21/23 neg for obvious stones. KUB 10/09/23 shows probable punctate calculi over the right renal region. Follow-up With When Contact Information KAEL JAMES, Anthony Lee, URL [facility] [place] [address]- Additional Instructions: 6 mos w/ PSA and possible Lupron Patient Education Prostate Cancer I, Olamide Ureña, personally scribed for Dr. Scruggs on 10/20/2023 09:55:49. . Documentation recorded by the scribe, Olamide Ureña, accurately reflects the services(s) I performed and decisions made by me. Authenticated by Dr. Scrugsg on 10/20/2023 09:57:09. Problem List/Past Medical History Ongoing CAD (coronary artery disease) History of kidney stones History of prostate cancer HTN (hypertension) Hyperlipidemia Kidney stones Microscopic hematuria Nocturia Prostate cancer Rising PSA [...] mg-20 mg Tab, 1 tab(s), Oral, Daily ipratropium Nasal 0.06% [place] metformin 1000 mg oral tablet, Oral, BID metoprolol 25 mg ER Tab, 25 mg= 1 tab(s), Oral, BID Vitamin D3 Xtandi 80 mg oral tablet, Oral, Daily Allergies penicillin G benzathine (Unknown) Social History Alcohol Current, 1-2 times per year, 02/04/2019 Tobacco Never (less than 100 in lifetime) Tobacco Use:. Never Smokeless Tobacco Use:. (more content not included)... Normal [facility] Comment on above: Result Comment: Elec tronically Signed By: Anthony SCRUGGS MD\.br\Date and Time Signed: 10/20/23 09:57 EDT\.br\Electronically Co-Signed By: Olamide Ureña.br\Date and Time Co-Signed: 10/20/23 09:55 EDT Lab Reportson 10-10-2023 Lab Reports [id number]#[id number] [facility] RAD - MISCon 10-10-2023 RAD - MIS [id number]#1.00TIFF [facility] No Panel Informationon 10-08 Prostate Specific Antigen Total <0.13 ng/mL <=4.00 [facility] No Panel Informationon 08-28 [facility] Type of biopsy: schmidt ential Informed consent: [...] yes Amount of lidocaine used: 0.5 cc [facility] Consultation Noteon 08-04-19 Consultation Note [id number]#[id number] [facility] CNOVSPon 08-03-2023 CNOVSP Visit (SP) Office ( [facility]) PBALO FELIX ([id number]) 1945 M Date Time Provider Department 08/03/23 [...] OTHER PHYSICIANS: Dr. Anthony Scruggs, Dr. Khan, [facility] Cardiology Portions of this encounter note [...] mg 24 hr tablet Take by mouth. 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 Left base margin positive for ne (more content not included)... [facility] PABLO FELIX ([id number]) 1945 M Date Time Provider Department 08/03/23 MARCO A ESQUEDA During your visit today, we recorded the following information about you: Alexandrea Ernst 08/03/2023 9:23 AM Signed Patient needs an appointment with Dermatology for right ear lesion. Yudy/Narciso: Can you please refer patient to [facility] and follow up? Thanks! Alexandrea Ernst Naila Liao 08/03/2023 9:51 AM Signed Yudy:Information ready for you. Naila Amaro [facility] Keysha Chris 08/04/2023 8:05 AM Signed Records faxed to [facility] Dermatology. Naila Liao 08/07/2023 2:54 PM Signed Called [facility] Derm office. Patient is scheduled to see [employer] OPERATOR Long Boo on 08/28 @ 11:25. Naila Amaro Allergies As of Date: 08/03/2023 Noted Allergy Reaction PENICILLINS 08/06/2014 16 - Unknown SIMVASTATIN 07/05/2002 16 - Unknown Date Reviewed: 08/03/2023 Reviewed by: Katie Rosen MA - Fully Assessed Reason for Visit: Referral Information [6974] Cmt: Dermatology Prescriptions as of 08/07/2023 - [...] 24 hr tablet Take by mouth. - Zcqlukodsstsg-Oyanwklm-Frpq in (MULTIVITAMIN 50 PLUS) tab Take 1 [...] Status:Closed by ALEXANDREA ERNST on 08/07/23 Normal [facility] CBC W Auto Differential pane l (Bld)on 07-27-2023 Basophils (Bld) [#/Vol] 0.05 10*3/uL Normal <0.11 [facility] Comment on above: Order Comment: Speci men Type: BLOOD SPECIMEN Ordering Facility: [facility] Address: [address] [place] [address] Performed By: #### 5 7021-8 #### [facility] CLIA [id number] [address] [place] [address] 99664 Basophils/100 WBC (Bld) 0.8 % Normal [facility] Comment on above: Order Comment: Speci men Type: BLOOD SPECIMEN Ordering Facility: [facility] Address: [address] [place] [address] Performed By: #### 5 7021-8 #### [facility] CLIA [id number] [address] [place] [address] 83687 Differential cell count method Nom (Bld) Auto Normal [facility] Comment on above: Order Comment: Speci men Type: BLOOD SPECIMEN Ordering Facility: [facility] Address: [address] [place] [address] Performed By: #### 5 7021-8 #### [facility] CLIA [id number] [address] [place] [address] 02007 Eosinophils (Bld) [#/Vol] 0.40 10*3/uL Normal <0.46 [facility] Comment on above: Order Comment: Speci men Type: BLOOD SPECIMEN Ordering Facility: [facility] Address: [address] [place] [address] Performed By: #### 5 7021-8 #### [facility] CLIA [id number] [address] [place] [address] 78751 Eosinophils/100 WBC (Bld) 6.2 % Normal [facility] Comment on above: Order Comment: Speci men Type: BLOOD SPECIMEN Ordering Facility: [facility] Address: [address] [place] [address] Performed By: #### 5 7021-8 #### [facility] CLIA [id number] [address] [place] [address] 72313 Erythrocyte distribution width (RBC) [Ratio] 12.5 % Normal 11.5-15.0 [facility] Comment on above: Order Comment: Speci men Type: BLOOD SPECIMEN Ordering Facility: [facility] Address: [address] [place] [address] Performed By: #### 5 7021-8 #### [facility] CLIA [id number] [address] [place] [address] 80018 Hematocrit (Bld) [Volume fraction] 34.8 % Low 39.0-51.0 [facility] Comment on above: Order Comment: Speci men Type: BLOOD SPECIMEN Ordering Facility: [facility] Address: [address] [place] [address] Performed By: #### 5 7021-8 #### [facility] CLIA [id number] [address] [place] [address] 37946 Hemoglobin (Bld) [Mass/Vol] 11.8 g/dL Low 13.0-17.0 [facility] Comment on above: Order Comment: Speci men Type: BLOOD SPECIMEN Ordering Facility: [facility] Address: [address] [place] [address] Performed By: #### 5 7021-8 #### [facility] CLIA [id number] [address] [place] [address] 35779 Immature granulocytes (Bld) [#/Vol] 0.05 10*3/uL Normal <0.10 [facility] Comment on above: Order Comment: Speci men Type: BLOOD SPECIMEN Ordering Facility: [facility] Address: [address] [place] [address] Performed By: #### 5 7021-8 #### [facility] CLIA [id number] [address] [place] [address] 25064 Immature granulocytes/100 WBC (Bld) 0.8 % Normal [facility] Comment on above: Order Comment: Speci men Type: BLOOD SPECIMEN Ordering Facility: [facility] Address: [address] [place] [address] Performed By: #### 5 7021-8 #### [facility] CLIA [id number] [address] [place] [address] Lymphocytes (Bld) [#/Vol] 1.78 10*3/uL Normal 1.00-4.00 [facility] Comment on above: Order Comment: Speci men Type: BLOOD SPECIMEN Ordering Facility: [facility] Address: [address] [place] [address] Performed By: #### 5 7021-8 #### [facility] CLIA [id number] [address] [place] [address] 08999 Lymphocytes/100 WBC (Bld) 27.7 % Normal [facility] Comment on above: Order Comment: Speci men Type: BLOOD SPECIMEN Ordering Facility: [facility] Address: [address] [place] [address] Performed By: #### 5 7021-8 #### [facility] CLIA [id number] [address] [place] [address] 65780 MCH (RBC) [Entitic mass] 32.2 pg Normal 26.0-34.0 [facility] Comment on above: Order Comment: Speci men Type: BLOOD SPECIMEN Ordering Facility: [facility] Address: [address] [place] [address] Performed By: #### 5 7021-8 #### [facility] CLIA [id number] [address] [place] [address] 13563 MCHC (RBC) [Mass/Vol] 33.9 g/dL Normal 30.5-36.0 [facility] Comment on above: Order Comment: Speci men Type: BLOOD SPECIMEN Ordering Facility: [facility] Address: [address] [place] [address] Performed By: #### 5 7021-8 #### [facility] CLIA [id number] [address] [place] [address] 27184 MCV (RBC) [Entitic vol] 94.8 fL Normal 80.0-100.0 [facility] Comment on above: Order Comment: Speci men Type: BLOOD SPECIMEN Ordering Facility: [facility] Address: [address] [place] [address] Performed By: #### 5 7021-8 #### [facility] CLIA [id number] [address] [place] [address] 63997 Monocytes (Bld) [#/Vol] 0.67 10*3/uL Normal <0.87 [facility] Comment on above: Order Comment: Speci men Type: BLOOD SPECIMEN Ordering Facility: [facility] Address: [address] [place] [address] Performed By: #### 5 7021-8 #### [facility] CLIA [id number] [address] [place] [address] 42095 Monocytes/100 WBC (Bld) 10.4 % Normal [facility] Comment on above: Order Comment: Speci men Type: BLOOD SPECIMEN Ordering Facility: [facility] Address: [address] [place] [address] Performed By: #### 5 7021-8 #### [facility] CLIA [id number] [address] [place] [address] 80856 Neutrophils (Bld) [#/Vol] 3.48 10*3/uL Normal 1.45-7.50 [facility] Comment on above: Order Comment: Speci men Type: BLOOD SPECIMEN Ordering Facility: [facility] Address: [address] [place] [address] Performed By: #### 5 7021-8 #### [facility] CLIA [id number] [address] [place] [address] 08638 Neutrophils/100 WBC (Bld) 54.1 % Normal [facility] Comment on above: Order Comment: Speci men Type: BLOOD SPECIMEN Ordering Facility: [facility] Address: [address] [place] [address] Performed By: #### 5 7021-8 #### [facility] CLIA [id number] [address] [place] [address] 26099 Nucleated RBC (Bld) [#/Vol] 10*3/uL Normal <0.01 [facility] Comment on above: Order Comment: Speci men Type: BLOOD SPECIMEN Ordering Facility: [facility] Address: [address] [place] [address] Performed By: #### 5 7021-8 #### [facility] CLIA [id number] [address] [place] [address] 51080 Nucleated RBC/100 WBC (Bld) [Ratio] 0.0 /100 WBC Normal [facility] Comment on above: Order Comment: Speci men Type: BLOOD SPECIMEN Ordering Facility: [facility] Address: [address] [place] [address] Performed By: #### 5 7021-8 #### [facility] CLIA [id number] [address] [place] [address] 24184 Platelet mean volume (Bld) [Entitic vol] 9.9 fL Normal 9.0-12.7 [facility] Comment on above: Order Comment: Speci men Type: BLOOD SPECIMEN Ordering Facility: [facility] Address: [address] [place] [address] Performed By: #### 5 7021-8 #### [facility] CLIA [id number] [address] [place] [address] 95346 Platelets (Bld) [#/Vol] 199 10*3/uL Normal 150-400 [facility] Comment on above: Order Comment: Speci men Type: BLOOD SPECIMEN Ordering Facility: [facility] Address: [address] [place] [address] Performed By: #### 5 7021-8 #### [facility] CLIA [id number] [address] [place] [address] 60534 RBC (Bld) [#/Vol] 3.67 10*6/uL Low 4.20-6.00 [facility] Comment on above: Order Comment: Speci men Type: BLOOD SPECIMEN Ordering Facility: [facility] Address: [address] [place] [address] Performed By: #### 5 7021-8 #### [facility] CLIA [id number] [address] [place] [address] WBC (Bld) [#/Vol] 6.43 10*3/uL Normal 3.70-11.00 [facility] Comment on above: Order Comment: Speci men Type: BLOOD SPECIMEN Ordering Facility: [facility] Address: [address] [place] [address] Performed By: #### 5 7021-8 #### [facility] CLIA [id number] [address] [place] [address] 96853 Comprehensive metabolic 2000 panelon 07-27-2023 Albumin [Mass/Vol] 4.2 g/dL Normal 3.9-4.9 [facility] Comment on above: Order Comment: Speci men Type: BLOOD SPECIMEN Ordering Facility: [facility] Address: [address] [place] [address] Performed By: #### 2 986-8 #### [facility] CLIA [id number] [address] [place] [address] [place] ALP [Catalytic activity/Vol] 73 U/L Normal 38-113 [facility] Comment on above: Order Comment: Speci men Type: BLOOD SPECIMEN Ordering Facility: [facility] Address: [address] [place] [address] Performed By: #### 2 986-8 #### [facility] CLIA [id number] [address] [place] [address] [place] ALT [Catalytic activity/Vol] 16 U/L Normal 10-54 [facility] Comment on above: Order Comment: Speci men Type: BLOOD SPECIMEN Ordering Facility: [facility] Address: [address] [place] [address] Performed By: #### 2 986-8 #### [facility] CLIA [id number] [address] [place] [address] [place] Anion gap [Moles/Vol] 10 mmol/L Normal 9-18 [facility] Comment on above: Order Comment: Speci men Type: BLOOD SPECIMEN Ordering Facility: [facility] Address: [address] [place] [address] Performed By: #### 2 986-8 #### [facility] CLIA [id number] [address] [place] [address] [place] AST [Catalytic activity/Vol] 17 U/L Normal 14-40 [facility] Comment on above: Order Comment: Speci men Type: BLOOD SPECIMEN Ordering Facility: [facility] Address: [address] [place] [address] Performed By: #### 2 986-8 #### [facility] CLIA [id number] [address] [place] [address] [place] Bilirubin [Mass/Vol] 0.6 mg/dL Normal 0.2-1.3 [facility] Comment on above: Order Comment: Speci men Type: BLOOD SPECIMEN Ordering Facility: [facility] Address: [address] [place] [address] Performed By: #### 2 986-8 #### [facility] CLIA [id number] [address] [place] [address] [place] Calcium [Mass/Vol] 9.5 mg/dL Normal 8.5-10.2 [facility] Comment on above: Order Comment: Speci men Type: BLOOD SPECIMEN Ordering Facility: [facility] Address: [address] [place] [address] Performed By: #### 2 986-8 #### [facility] CLIA [id number] [address] [place] [address] [place] Chloride [Moles/Vol] 102 mmol/L Normal 97-105 [facility] Comment on above: Order Comment: Speci men Type: BLOOD SPECIMEN Ordering Facility: [facility] Address: [address] [place] [address] Performed By: #### 2 986-8 #### [facility] CLIA [id number] [address] [place] [address] [place] CO2 [Moles/Vol] 26 mmol/L Normal 22-30 [facility] Comment on above: Order Comment: Nicanor camilo Type: BLOOD SPECIMEN Ordering Facility: [facility] Address: [address] [place] [address] Performed By: #### 2 986-8 #### [facility] CLIA [id number] [address] [place] [address] [place] Creatinine [Mass/Vol] 0.85 mg/dL Normal 0.73-1.22 [facility] Comment on above: Order Comment: Francii men Type: BLOOD SPECIMEN Ordering Facility: [facility] Address: [address] [place] [address] Performed By: #### 2 986-8 #### [facility] CLIA [id number] [address] [place] [address] [place] Creatinine and Glomerular filtration rate.predicted panel (S/P/Bld) 89 mL/min/1.73m??? Normal >=60 [facility] Comment on above: Order Comment: Nicanor camilo Type: BLOOD SPECIMEN Ordering Facility: [facility] Address: [address] [place] [address] Result Comment: Renae mated Glomerular Filtration Rate [...] reflect actual GFR. Performed By: #### 2 986-8 #### [facility] CLIA [id number] [address] [place] [address] [place] Glucose [Mass/Vol] 117 mg/dL High 74-99 [facility] Comment on above: Order Comment: Nicanor camilo Type: BLOOD SPECIMEN Ordering Facility: [facility] Address: [address] [place] [address] Result Comment: The [place] [employer] (ADA) provides guidance for cutoff [...] Standards of Medical Care in Diabetes 2016, [place] [employer]. Diabetes Care. 2016.39(Suppl 1). Performed By: #### 2 986-8 #### [facility] CLIA [id number] [address] [place] [address] [place] Potassium [Moles/Vol] 4.8 mmol/L Normal 3.7-5.1 [facility] Comment on above: Order Comment: Speci men Type: BLOOD SPECIMEN Ordering Facility: [facility] Address: [address] [place] [address] Performed By: #### 2 986-8 #### [facility] CLIA [id number] [address] [place] [address] [place] Protein [Mass/Vol] 6.6 g/dL Normal 6.3-8.0 [facility] Comment on above: Order Comment: Speci men Type: BLOOD SPECIMEN Ordering Facility: [facility] Address: [address] [place] [address] Performed By: #### 2 986-8 #### [facility] CLIA [id number] [address] [place] [address] [place] Sodium [Moles/Vol] 138 mmol/L Normal 136-144 [facility] Comment on above: Order Comment: Speci men Type: BLOOD SPECIMEN Ordering Facility: [facility] Address: [address] [place] [address] Performed By: #### 2 986-8 #### [facility] CLIA [id number] [address] [place] [address] [place] Urea nitrogen [Mass/Vol] 13 mg/dL Normal 9-24 [facility] Comment on above: Order Comment: Speci men Type: BLOOD SPECIMEN Ordering Facility: [facility] Address: [address] [place] [address] Performed By: #### 2 986-8 #### [facility] CLIA [id number] [address] [place] [address] [place] PSA SerPl-mCncon 07-27-2023 Prostate specific Ag [Mass/Vol] 0.13 ng/mL Normal <2.60 [facility] Comment on above: Order Comment: Speci men Type: BLOOD SPECIMEN Ordering Facility: [facility] Address: [address] [place] [address] Result Comment: Tota l PSA test methodology used is the Electrochemiluminescence Immunoassay by [employer]. Total PSA values by differing methodologies cannot be interchanged. Performed By: #### 2 986-8 #### [facility] CLIA [id number] [address] [place] [address] [place] Office Visiton 06-22-2023 Follow-up visit [id number] Pablo Felix 1945 M Date Provider Department Center 06/22/2023 Erika-BRIDGER MULLIGAN [facility] Family History Problem Relation Age of Onset Coronary artery disease Father Family Status - Relation Status Age at Father Level of Service:[address]285 [place] OFFICE/OUTPATIENT ESTABLISHED MOD MDM 30-39 MIN Normal [facility] CNOVSPon 04-27-2023 CNOVSP Visit (SP) Office (H EMASA) PABLO FELIX ([id number]) 1945 M Date Time Provider Department 04/27/23 10:00 AM CHRISTO HOWARD During your visit today, we recorded the following information about you: Temperature Pulse Respiration Blood pressure 97 degrees 50/minute 16/minute 141/49 Weight Height 92.5 kg 1.676 m Christo Howard APRN.DRIVER TRAINEE 04/27/2023 11:16 AM Signed PATIENT NAME: Pablo Felix DATE: 04/27/2023 PRIMARY CARE PHYSICIAN: Dr. Jamar Fall OTHER PHYSICIANS: Dr. Anthony Scruggs, Dr. Khan, [facility] Cardiology Portions of this encounter note [...] mg 24 hr tablet Take by mouth. 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 Left base margin positive for neoplasm. Seminal vesicles with no diagnostic abnormality. 2 resected lymph nodes negati (more content not included)... Normal [facility] Basic metabolic 2000 panelon 04-24-2023 Anion gap [Moles/Vol] 13 mmol/L Normal 9-18 [facility] Comment on above: Order Comment: Speci men Type: BLOOD SPECIMEN Ordering Facility: [facility] Address: [address] [place] [address] Performed By: #### 2 986-8 #### [facility] CLIA [id number] [address] [place] [address] [place] Calcium [Mass/Vol] 10.2 mg/dL Normal 8.5-10.2 [facility] Comment on above: Order Comment: Speci men Type: BLOOD SPECIMEN Ordering Facility: [facility] Address: [address] [place] [address] Performed By: #### 2 986-8 #### [facility] CLIA [id number] [address] [place] [address] [place] Chloride [Moles/Vol] 100 mmol/L Normal 97-105 [facility] Comment on above: Order Comment: Speci men Type: BLOOD SPECIMEN Ordering Facility: [facility] Address: [address] [place] [address] Performed By: #### 2 986-8 #### [facility] CLIA [id number] [address] [place] [address] [place] CO2 [Moles/Vol] 24 mmol/L Normal 22-30 [facility] Comment on above: Order Comment: Speci men Type: BLOOD SPECIMEN Ordering Facility: [facility] Address: [address] [place] [address] Performed By: #### 2 986-8 #### [facility] CLIA [id number] [address] [place] [address] [place] Creatinine [Mass/Vol] 0.75 mg/dL Normal 0.73-1.22 [facility] Comment on above: Order Comment: Nicanor camilo Type: BLOOD SPECIMEN Ordering Facility: [facility] Address: [address] [place] [address] Performed By: #### 2 986-8 #### [facility] CLIA [id number] [address] [place] [address] [place] Creatinine and Glomerular filtration rate.predicted panel (S/P/Bld) 93 mL/min/1.73m??? Normal >=60 [facility] Comment on above: Order Comment: Nicanor camilo Type: BLOOD SPECIMEN Ordering Facility: [facility] Address: [address] [place] [address] Result Comment: Renae mated Glomerular Filtration Rate [...] reflect actual GFR. Performed By: #### 2 986-8 #### [facility] CLIA [id number] [address] [place] [address] [place] Glucose [Mass/Vol] 113 mg/dL High 74-99 [facility] Comment on above: Order Comment: Nicanor camilo Type: BLOOD SPECIMEN Ordering Facility: [facility] Address: [address] [place] [address] Result Comment: The [place] Diabetes [employer] (ADA) provides guidance for cutoff [...] Standards of Medical Care in Diabetes 2016, [place] [employer]. Diabetes Care. 2016.39(Suppl 1). Performed By: #### 2 986-8 #### [facility] CLIA [id number] [address] [place] [address] [place] Potassium [Moles/Vol] 4.9 mmol/L Normal 3.7-5.1 [facility] Comment on above: Order Comment: Speci men Type: BLOOD SPECIMEN Ordering Facility: [facility] Address: [address] [place] [address] Performed By: #### 2 986-8 #### [facility] CLIA [id number] [address] [place] [address] [place] Sodium [Moles/Vol] 137 mmol/L Normal 136-144 [facility] Comment on above: Order Comment: Speci men Type: BLOOD SPECIMEN Ordering Facility: [facility] Address: [address] [place] [address] Performed By: #### 2 986-8 #### [facility] CLIA [id number] [address] [place] [address] [place] Urea nitrogen [Mass/Vol] 11 mg/dL Normal 9-24 [facility] Comment on above: Order Comment: Speci men Type: BLOOD SPECIMEN Ordering Facility: [facility] Address: [address] [place] [address] Performed By: #### 2 986-8 #### [facility] CLIA [id number] [address] [place] [address] [place] CBC W Auto Differential pane l (Bld)on 04-24-2023 Basophils (Bld) [#/Vol] 0.03 10*3/uL Normal <0.11 [facility] Comment on above: Order Comment: Speci men Type: BLOOD SPECIMENOrdering Facility: [facility] Address: [address] [place] [address] Performed By: #### 5 7021-8 ####[facility] [id number] [place] [address] Basophils/100 WBC (Bld) 0.4 % Normal [facility] Comment on above: Order Comment: Speci men Type: BLOOD SPECIMENOrdering Facility: [facility] Address: [address] [place] [address] Performed By: #### 5 7021-8 ####[facility] LABCLIA [id number] [place] [address] Differential cell count method Nom (Bld) Auto Normal [facility] Comment on above: Order Comment: Speci men Type: BLOOD SPECIMENOrdering Facility: [facility] Address: [address] [place] [address] Performed By: #### 5 7021-8 ####[facility] LABCLIA [id number] [place] [address] Eosinophils (Bld) [#/Vol] 0.23 10*3/uL Normal <0.46 [facility] Comment on above: Order Comment: Speci men Type: BLOOD SPECIMENOrdering Facility: [facility] Address: [address] [place] [address] Performed By: #### 5 7021-8 ####[facility] LABCLIA [id number] [place] [address] Eosinophils/100 WBC (Bld) 3.4 % Normal [facility] Comment on above: Order Comment: Speci men Type: BLOOD SPECIMENOrdering Facility: [facility] Address: [address] [place] [address] Performed By: #### 5 7021-8 ####[facility] LABCLIA [id number] [place] [address] Erythrocyte distribution width (RBC) [Ratio] 13.1 % Normal 11.5-15.0 [facility] Comment on above: Order Comment: Speci men Type: BLOOD SPECIMENOrdering Facility: [facility] Address: [address] [place] [address] Performed By: #### 5 7021-8 ####[facility] LABCLIA [id number] [place] [address] Hematocrit (Bld) [Volume fraction] 36.2 % Low 39.0-51.0 [facility] Comment on above: Order Comment: Speci men Type: BLOOD SPECIMENOrdering Facility: [facility] Address: [address] [place] [address] Performed By: #### 5 7021-8 ####[facility] LABCLIA [id number] [place] [address] Hemoglobin (Bld) [Mass/Vol] 12.2 g/dL Low 13.0-17.0 [facility] Comment on above: Order Comment: Speci men Type: BLOOD SPECIMENOrdering Facility: [facility] Address: [address] [place] [address] Performed By: #### 5 7021-8 ####[facility] LABCLIA [id number] [place] [address] Immature granulocytes (Bld) [#/Vol] 0.07 10*3/uL Normal <0.10 [facility] Comment on above: Order Comment: Speci men Type: BLOOD SPECIMENOrdering Facility: [facility] Address: [address] [place] [address] Performed By: #### 5 7021-8 ####[facility] LABCLIA [id number] [place] [address] Immature granulocytes/100 WBC (Bld) 1.0 % Normal [facility] Comment on above: Order Comment: Speci men Type: BLOOD SPECIMENOrdering Facility: [facility] Address: [address] [place] [address] Performed By: #### 5 7021-8 ####[facility] LABCLIA [id number] [place] [address] Lymphocytes (Bld) [#/Vol] 2.02 10*3/uL Normal 1.00-4.00 [facility] Comment on above: Order Comment: Speci men Type: BLOOD SPECIMENOrdering Facility: [facility] Address: [address] [place] [address] Performed By: #### 5 7021-8 ####[facility] LABCLIA [id number] [place] [address] Lymphocytes/100 WBC (Bld) 29.7 % Normal [facility] Comment on above: Order Comment: Speci men Type: BLOOD SPECIMENOrdering Facility: [facility] Address: [address] [place] [address] Performed By: #### 5 7021-8 ####[facility] LABCLIA [id number] [place] [address] MCH (RBC) [Entitic mass] 31.5 pg Normal 26.0-34.0 [facility] Comment on above: Order Comment: Speci men Type: BLOOD SPECIMENOrdering Facility: [facility] Address: [address] [place] [address] Performed By: #### 5 7021-8 ####[facility] LABCLIA [id number] [place] [address] MCHC (RBC) [Mass/Vol] 33.7 g/dL Normal 30.5-36.0 [facility] Comment on above: Order Comment: Speci men Type: BLOOD SPECIMENOrdering Facility: [facility] Address: [address] [place] [address] Performed By: #### 5 7021-8 ####[facility] LABCLIA [id number] [place] [address] MCV (RBC) [Entitic vol] 93.5 fL Normal 80.0-100.0 [facility] Comment on above: Order Comment: Speci men Type: BLOOD SPECIMENOrdering Facility: [facility] Address: [address] [place] [address] Performed By: #### 5 7021-8 ####[facility] LABCLIA [id number] [place] [address] Monocytes (Bld) [#/Vol] 0.62 10*3/uL Normal <0.87 [facility] Comment on above: Order Comment: Speci men Type: BLOOD SPECIMENOrdering Facility: [facility] Address: [address] [place] [address] Performed By: #### 5 7021-8 ####[facility] LABCLIA [id number] [place] [address] Monocytes/100 WBC (Bld) 9.1 % Normal [facility] Comment on above: Order Comment: Speci men Type: BLOOD SPECIMENOrdering Facility: [facility] Address: [address] [place] [address] Performed By: #### 5 7021-8 ####[facility] LABCLIA [id number] [place] [address] Neutrophils (Bld) [#/Vol] 3.83 10*3/uL Normal 1.45-7.50 [facility] Comment on above: Order Comment: Speci men Type: BLOOD SPECIMENOrdering Facility: [facility] Address: [address] [place] [address] Performed By: #### 5 7021-8 ####[facility] LABCLIA [id number] [place] [address] Neutrophils/100 WBC (Bld) 56.4 % Normal [facility] Comment on above: Order Comment: Speci men Type: BLOOD SPECIMENOrdering Facility: [facility] Address: [address] [place] [address] Performed By: #### 5 7021-8 ####[facility] LABCLIA [id number] [place] [address] Nucleated RBC (Bld) [#/Vol] 10*3/uL Normal <0.01 [facility] Comment on above: Order Comment: Speci men Type: BLOOD SPECIMENOrdering Facility: [facility] Address: [address] [place] [address] Performed By: #### 5 7021-8 ####[facility] LABCLIA [id number] [place] [address] Nucleated RBC/100 WBC (Bld) [Ratio] 0.0 /100 WBC Normal [facility] Comment on above: Order Comment: Speci men Type: BLOOD SPECIMENOrdering Facility: [facility] Address: [address] [place] [address] Performed By: #### 5 7021-8 ####[facility] LABCLIA [id number] [place] [address] Platelet mean volume (Bld) [Entitic vol] 10.0 fL Normal 9.0-12.7 [facility] Comment on above: Order Comment: Speci men Type: BLOOD SPECIMENOrdering Facility: [facility] Address: [address] [place] [address] Performed By: #### 5 7021-8 ####[facility] LABCLIA [id number] [place] [address] Platelets (Bld) [#/Vol] 195 10*3/uL Normal 150-400 [facility] Comment on above: Order Comment: Speci men Type: BLOOD SPECIMENOrdering Facility: [facility] Address: [address] [place] [address] Performed By: #### 5 7021-8 ####[facility] LABCLIA [id number] [place] [address] RBC (Bld) [#/Vol] 3.87 10*6/uL Low 4.20-6.00 [facility] Comment on above: Order Comment: Speci men Type: BLOOD SPECIMENOrdering Facility: [facility] Address: [address] [place] [address] Performed By: #### 5 7021-8 ####[facility] LABCLIA [id number] [place] [address] WBC (Bld) [#/Vol] 6.80 10*3/uL Normal 3.70-11.00 [facility] Comment on above: Order Comment: Speci men Type: BLOOD SPECIMENOrdering Facility: [facility] Address: [address] [place] [address] Performed By: #### 5 7021-8 ####[facility] LABCLIA [id number] [place] [address] PSA SerPl-mCncon 04-24-2023 Prostate specific Ag [Mass/Vol] 0.12 ng/mL Normal <2.60 [facility] Comment on above: Order Comment: Speci men Type: BLOOD SPECIMEN Ordering Facility: [facility] Address: [address] [place] [address] Result Comment: Tota l PSA test methodology used is the Electrochemiluminescence Immunoassay by [employer]. Total PSA values by differing methodologies cannot be interchanged. Performed By: #### 2 986-8 #### [facility] CLIA [id number] [address] [place] [address] [place] RAD - MISCon 04-24-2023 RAD - MISC [id number] Normal [facility] Testost SerPl-mCncon 023 Testosterone [Mass/Vol] 49 ng/dL Low 193-824 [facility] Comment on above: Order Comment: Speci men Type: BLOOD SPECIMENOrdering Facility: [facility] Address: [address] [place] [address] Result Comment: A te stosterone level in the 193-320 ng/dL range with associated clinical symptoms is considered low and may indicate hypogonadism (from NEJM 2010 363:123-135). Results >320 ng/dL are considered normal. Result rechecked. Performed By: #### 2 986-8 ####[facility] LABCLIA [id number] [address] [address] [place] Ambulatory Visit Summaryon 1 Ambulatory Visit Summary PABLO FELIX :1945 Visit Date:04/17/2023 Ambulatory Visit Instructions Your Diagnosis Rising PSA following treatment for malignant neoplasm of prostate History of prostate cancer Microscopic hematuria History of kidney stones Tests Performed Urnls Dip Stick Auto w/o Microscopy POC 28233 XR Abdomen 1 View -- Results Pending [...] Anthony SCRUGGS MD Where: [facility] Patient Educationon 04-17-20 23 Patient Education Oncology Prostate Cancer The prostate [...] likelihood that the cancer will spread. ? Lucrecia 6 or lower: This indicates that the [...] external be (more content not included)... Normal [facility] Urology Office/Clinic Noteon 04-17-2023 Urology Office/Clinic Note [...] When Contact Information KAEL JAMES, Anthony Lee, [facility] [address], [place] [address]- [phone] Additional Instructions: 6 mos w/ PSA (and possible Lupron) Patient Education Prostate Cancer IJeanine, personally scribed for Dr. Scruggs on 04/17/2023 09:25:04. . Documentation recorded by the scribeJeanine, accurately reflects the services(s) I performed and [...] year, 02/04/2019 T (more content not included)... [facility] Comment on above: Result Comment: Elec tronically Signed By: Anthony SCRUGGS MD\.br\Date and Time Signed: 04/17/23 09:28 EDT\.br\Electronically Co-Signed By: Jeanine Crandall\.br\Date and Time Co-Signed: 04/17/23 09:25 EDT [facility] 04-12-2023 Lab Reports [id number]#[id number]:127 [facility] 02-06-2023 CNPN Telephone (RADTSA) PABLO FELIX ([id number]) 1945 M Date Time Provider Department 02/06/23 [...] 24 hr tablet Take by mouth. - Uxlrsocpwpmmr-Wzyhgbci-Wysu in (MULTIVITAMIN 50 PLUS) tab Take 1 [...] Status:Closed by JOSIE MEHTA on 02/06/23 Normal [facility] Consultation Noteon 02-07-20 Consultation Note [id number]:127 Normal [facility] Consultation Noteon 11-11-19 Consultation Note [id number]:127 Normal [facility] GLYCOHEMOGLOBIN A1Con 2022 ADA RECOMMENDATION SEE BELOW Normal [facility] Comment on above: Result Comment: ADA RECOMMENDED LIMIT 4.0 - 6.0 ADA THERAPEUTIC TARGET < 7.0 ACTION SUGGESTED > 7.0 Performed By: #### D ATA1C #### [facility] [address] [address] [address] Bharati Aguiar Glucose [Mass/Vol] 131 mg/dL Normal [facility] Comment on above: Performed By: #### D ATA1C #### [facility] [address] [address] [address] Bharati Aguiar HbA1c (Bld) [Mass fraction] 6.2 % Normal 4.5-6.2 [facility] Comment on above: Performed By: #### D ATA1C #### [facility] [address] [address] [address] Bharati Aguiar XR CSPINE OBL FLEX_EXTon XR CSPINE OBL [...] by: CYNTHIA TORRES Date: 2022-07-21 15:52 Normal [facility] GLYCOHEMOGLOBIN A1Con 2021 ADA RECOMMENDATION SEE BELOW Normal [facility] Comment on above: Result Comment: ADA RECOMMENDED LIMIT 4.0 - 6.0 ADA THERAPEUTIC TARGET < 7.0 ACTION SUGGESTED > 7.0 Performed By: #### D ATA1C #### [facility] [address] [address] [address] Bharati Aguiar Glucose [Mass/Vol] 134 mg/dL Normal [facility] Comment on above: Performed By: #### D ATA1C #### [facility] [address] [address] [address] Bharati Aguiar HbA1c (Bld) [Mass fraction] 6.3 % Critically high 4.5-6.2 [facility] Comment on above: Performed By: #### D ATA1C #### [facility] [address] [address] [address] Bharati Aguiar ECHOCARDIO M/2D COMPLETEon 1 ECHOCARDIO M/2D COMPLETE Patient: PABLO FELIX Exam Date: 04/27/2022 : 1945 Gender:M Ordering : LORA AnJunior TAMEKA Admission #: [id number] Family : DR JAMAR FALL D.Trang Order #: [id number] CLICK HERE TO VIEW EXAM ECHOCARDIOGRAM REPORT [...] Carreon M.D. on 04/28/2022 at 19:09 Normal [facility] GLYCOHEMOGLOBIN A1Con 2021 ADA RECOMMENDATION SEE BELOW Normal [facility] Comment on above: Result Comment: ADA RECOMMENDED LIMIT 4.0 - 6.0 ADA THERAPEUTIC TARGET < 7.0 ACTION SUGGESTED > 7.0 Performed By: #### D ATA1C ####[facility] [address] [place], [place] [address]Ux. Bharati Aguiar Glucose [Mass/Vol] 137 mg/dL Normal [facility] Comment on above: Performed By: #### D ATA1C ####[facility] [address] [place], [place] [address]Tj. Bharati Aguiar HbA1c (Bld) [Mass fraction] 6.4 % Critically high 4.5-6.2 [facility] Comment on above: Performed By: #### D ATA1C ####[facility] [address] [place], [place] [address]Ms. Bharati Aguiar NM BONE SC WH BODYon [...] it was not obviously included in the ylujv-tq-eesk of the recent CT. There are foci [...] DE JESUS Date: 2021-11-06 12:45 Normal [facility] CT CHEST W CONon 11-05-2021 CT CHEST [...] LUIZ UMANA Date: 2021-11-05 14:08 Normal [facility] PROF 14(COMP METB)on 022 Albumin [Mass/Vol] 3.6 g/dL Normal 3.4-5.0 [facility] Comment on above: Performed By: #### C MP #### [facility] [address] [place] [address] Dr. Bharati Aguiar Albumin/Globulin [Mass ratio] 1.1 {ratio} Normal [facility] Comment on above: Performed By: #### C MP #### [facility] [address] [address] [address] Bharati Aguiar ALP [Catalytic activity/Vol] 89 U/L Normal 46-116 [facility] Comment on above: Performed By: #### C MP #### [facility] [address] [place] [address] Dr. Bharati Aguiar ALT [Catalytic activity/Vol] 33 U/L Normal 16-63 [facility] Comment on above: Performed By: #### C MP #### [facility] [address] [place] [address] Dr. Bharati Aguiar Anion gap [Moles/Vol] 12.1 mmol/L Normal [facility] Comment on above: Performed By: #### C MP #### [facility] [address] [place] [address] Dr. Bharati Aguiar AST [Catalytic activity/Vol] 19 U/L Normal 15-37 [facility] Comment on above: Performed By: #### C MP #### [facility] [address] [place] [address] Dr. Bharati Aguiar Bilirubin [Mass/Vol] 0.9 mg/dL Normal 0.2-1.3 [facility] Comment on above: Performed By: #### C MP #### [facility] [address] [place] [address] Dr. Bharati Aguiar Calcium [Mass/Vol] 8.8 mg/dL Normal 8.5-10.1 [facility] Comment on above: Performed By: #### C MP #### [facility] [address] [place] [address] Dr. Bharati Aguiar Chloride [Moles/Vol] 103 mmol/L Normal 98-107 [facility] Comment on above: Performed By: #### C MP #### [facility] [address] [address] [address] Bharati Aguiar CO2 [Moles/Vol] 28.6 mmol/L Normal 22.0-30.0 [facility] Comment on above: Performed By: #### C MP #### [facility] [address] [address] [address] Bharati Aguiar Creatinine [Mass/Vol] 0.85 mg/dL Normal 0.66-1.25 [facility] Comment on above: Performed By: #### C MP #### [facility] [address] [address] [address] Bharati Aguiar EGFR-AF ROMANIAN >60 Normal >=60 [facility] Comment on above: Performed By: #### C MP #### [facility] [address] [place] [address] Dr. Bharati Aguiar EGFR-NON AF ROMANIAN >60 Normal >=60 [facility] Comment on above: Performed By: #### C MP #### [facility] [address] [place] [address] Dr. Bharati Aguiar Globulin (S) [Mass/Vol] 3.4 g/dL Normal [facility] Comment on above: Performed By: #### C MP #### [facility] [address] [address] [address] Bharati Aguiar Glucose [Mass/Vol] 127 mg/dL Critically high 74-106 [facility] Comment on above: Performed By: #### C MP #### [facility] [address] [address] [address] Bharati Aguiar Potassium [Moles/Vol] 4.7 mmol/L Normal 3.4-5.0 [facility] Comment on above: Performed By: #### C MP #### [facility] [address] [place] [address] Dr. Bharati Aguiar Protein [Mass/Vol] 7.0 g/dL Normal 6.1-8.2 [facility] Comment on above: Performed By: #### C MP #### [facility] [address] [place], [place] [address] Dr. Bharati Aguiar Sodium [Moles/Vol] 139 mmol/L Normal 137-145 [facility] Comment on above: Performed By: #### C MP #### [facility] [address] [address] [address] Bharati Aguiar Urea nitrogen [Mass/Vol] 18.0 mg/dL Normal 7.0-18.0 [facility] Comment on above: Performed By: #### C MP #### [facility] [address] [address] [address] Bharati Aguiar Urea nitrogen/Creatinin e [Mass ratio] 21.2 mg/mg Normal [facility] Comment on above: Performed By: #### C MP #### [facility] [address] [address] [address] Bharati Aguiar Vital Signs Date Time Vital Sign Value Performing Clinician Facility 03-26-2024 08:37-0400 Body height 168.91 cm [facility] 03-26-2024 08:37-0400 Body mass index (BMI) [Ratio] 33 kg/m2 [facility] 03-26-2024 08:37-0400 Body weight 94.12 kg [facility] 03-26-2024 08:37-0400 Diastolic blood pressure 80 mm[Hg] [facility] 03-26-2024 08:37-0400 Heart rate 52 /min [facility] 03-26-2024 08:37-0400 Respiratory rate 12 /min [facility] 03-26-2024 08:37-0400 Systolic blood pressure 130 mm[Hg] [facility] 02-02-2024 11:06-0400 Body height 167.6 cm Lynne Alarcon APRN.CNP Work Phone: [facility] 02-02-2024 11:06-0400 Body mass index (BMI) [Ratio] 33.36 kg/m2 Lynne Alarcon APRN.CNP Work Phone: [facility] 02-02-2024 11:06-0400 Body temperature 97.3 [degF] Lynne Gross [address].DRIVER TRAINEE Work Phone: [facility] 02-02-2024 11:06-0400 Body weight 93.7 kg [address]ne Alarcon [address].DRIVER TRAINEE Work Phone: [facility] 02-02-2024 11:06-0400 Diastolic blood pressure 54 mm[Hg] Lynne Alarcon [address].DRIVER TRAINEE Work Phone: [facility] 02-02-2024 11:06-0400 Heart rate 52 /min Lynne Alarcon [address].DRIVER TRAINEE Work Phone: [facility] 02-02-2024 11:06-0400 Respiratory rate 16 /min Lynne Alarcon [address].DRIVER TRAINEE Work Phone: [facility] 02-02-2024 11:06-0400 SaO2% (BldA) [Mass fraction] 98 % Lynne Alarcon [address]PUT[address] COURT.DRIVER TRAINEE Work Phone: [facility] 02-02-2024 11:06-0400 Systolic blood pressure 137 mm[Hg] Lynne Alarcon [address]PUT[address] COURT.DRIVER TRAINEE Work Phone: [facility] 11-23-2023 08:38-0400 Body height 168.91 cm [facility] 11-23-2023 08:38-0400 Body mass index (BMI) [Ratio] 33.2 kg/m2 [facility] 11-23-2023 08:38-0400 Body weight 94.8 kg [facility] 11-23-2023 08:38-0400 Diastolic blood pressure 69 mm[Hg] [facility] 11-23-2023 08:38-0400 Heart rate 48 /min [facility] 11-23-2023 08:38-0400 Respiratory rate 12 /min [facility] 11-23-2023 08:38-0400 Systolic blood pressure 130 mm[Hg] [facility] 11-02-2023 09:14-0400 Body height 167.6 cm Christo Howard APRN.DRIVER TRAINEE Work Phone: [facility] 11-02-2023 09:14-0400 Body temperature 97.81 [degF] Christo Howard APRN.DRIVER TRAINEE Work Phone: [facility] 11-02-2023 09:14-0400 Body weight 92.9 kg Christo Howard APRN.DRIVER TRAINEE Work Phone: [facility] 11-02-2023 09:14-0400 Diastolic blood pressure 44 mm[Hg] Christo Howard [address] COURT.DRIVER TRAINEE Work Phone: [facility] 11-02-2023 09:14-0400 Heart rate 56 /min Christo Howard APRN.DRIVER TRAINEE Work Phone: [facility] 11-02-2023 09:14-0400 Respiratory rate 16 /min Christo Howard APRN.DRIVER TRAINEE Work Phone: [facility] 11-02-2023 09:14-0400 SaO2% (BldA) [Mass fraction] 97 % Christo Howard APRN.DRIVER TRAINEE Work Phone: [facility] 11-02-2023 09:14-0400 Systolic blood pressure 123 mm[Hg] Christo Howard [address] COURT.DRIVER TRAINEE Work Phone: [facility] 10-20-2023 09:05-0400 Blood Pressure Location Anthony SCRUGGS [facility] 10-20-2023 09:05-0400 Diastolic blood pressure 64 mm[Hg] Anthony SCRUGGS [facility] 10-20-2023 09:05-0400 Heart rate 53 /min Anthony SCRUGGS [facility] 10-20-2023 09:05-0400 Respiratory rate 16 /min Anthony SCRUGGS [facility] 10-20-2023 09:05-0400 Systolic blood pressure 110 mm[Hg] Anthony SCRUGGS [facility] 09-12-2023 14:13-0500 Body height 168.91 cm [facility] 09-12-2023 14:13-0500 Body mass index (BMI) [Ratio] 33.4 kg/m2 [facility] 09-12-2023 14:13-0500 Body weight 95.42 kg [facility] 09-12-2023 14:13-0500 Diastolic blood pressure 84 mm[Hg] [facility] 09-12-2023 14:13-0500 Heart rate 56 /min [facility] 09-12-2023 14:13-0500 Respiratory rate 12 /min [facility] 09-12-2023 14:13-0500 Systolic blood pressure 143 mm[Hg] [facility] 08-24-2023 08:30-0500 Body height 168.91 cm Jamar Ball Other [facility] [employer] Other 08-24-2023 08:30-0500 Body mass index (BMI) [Ratio] 34.08 kg/m2 Jamar Ball Other [facility] [employer] Other 08-24-2023 08:30-0500 Body weight 97.25 kg Jamar Ball Other [facility] [employer] Other 08-24-2023 08:30-0500 Diastolic blood pressure 81 mm[Hg] Jamar Ball Other [facility] [employer] Other 08-24-2023 08:30-0500 Respiratory rate 12 /min Jamar Ball Other [facility] [employer] Other 08-24-2023 08:30-0500 Systolic blood pressure 125 mm[Hg] Jamar Ball Other [facility] [employer] Other 05-30-2023 15:00-0500 Body height 168.91 cm Jamar Ball Other [facility] [employer] Other 05-30-2023 15:00-0500 Body mass index (BMI) [Ratio] 32.84 kg/m2 Jamar Ball Other [employer] Other 05-30-2023 15:00-0500 Body weight 93.71 kg Jamar Ball Other [employer] Other 05-30-2023 15:00-0500 Diastolic blood pressure 66 mm[Hg] Jamar Ball Other [employer] [employer] Other 05-30-2023 15:00-0500 Respiratory rate 12 /min Jamar Ball Other [facility] Other 05-30-2023 15:00-0500 Systolic blood pressure 141 mm[Hg] Jamar Ball Other [facility] Other 05-01-2023 09:45-0400 Body height 168.91 cm Jamar Ball Other [facility] Other 05-01-2023 09:45-0400 Body mass index (BMI) [Ratio] 32.14 kg/m2 Jamar Ball Other [facility] Other 05-01-2023 09:45-0400 Body weight 91.72 kg Jamar Ball Other [facility] Other 05-01-2023 09:45-0400 Diastolic blood pressure 62 mm[Hg] Jamar Ball Other [facility] Other 05-01-2023 09:45-0400 Respiratory rate 12 /min Jamar Ball Other [facility] Other 05-01-2023 09:45-0400 Systolic blood pressure 129 mm[Hg] Jamar Ball Other [facility] Other 04-27-2023 09:23-0400 Diastolic blood pressure 49 mm[Hg] Christo Howard APRN.DRIVER TRAINEE Work Phone: [facility] 04-27-2023 09:23-0400 Heart rate 50 /min Christo Howard APRN.DRIVER TRAINEE Work Phone: [facility] 04-27-2023 09:23-0400 Systolic blood pressure 141 mm[Hg] Christo Howard [employer]PUT[employer].DRIVER TRAINEE Work Phone: [facility] 04-27-2023 09:20-0400 Body height 167.6 cm Christo Howard APRN.DRIVER TRAINEE Work Phone: [facility] 04-27-2023 09:20-0400 Body temperature 97 [degF] Christo Howard APRN.DRIVER TRAINEE Work Phone: [facility] 04-27-2023 09:20-0400 Body weight 92.53 kg Christo Howard APRN.DRIVER TRAINEE Work Phone: [facility] 04-27-2023 09:20-0400 Respiratory rate 16 /min Christo Howard APRN.DRIVER TRAINEE Work Phone: [facility] 04-27-2023 09:20-0400 SaO2% (BldA) [Mass fraction] 100 % Christo Howard APRN.DRIVER TRAINEE Work Phone: [facility] 04-17-2023 08:45-0400 Blood Pressure Location Anthony SCRUGGS [facility] 04-17-2023 08:45-0400 Diastolic blood pressure 68 mm[Hg] Anthony SCRUGGS [facility] 04-17-2023 08:45-0400 Heart rate 62 /min Anthony SCRUGGS [facility] 04-17-2023 08:45-0400 Respiratory rate 16 /min Anthony SCRUGGS [facility] 04-17-2023 08:45-0400 Systolic blood pressure 130 mm[Hg] Anthony SCRUGGS [facility] 04-05-2023 13:45-0400 Body height 168.91 cm Jamar Ball Other [facility] Other 04-05-2023 13:45-0400 Body mass index (BMI) [Ratio] 32.46 kg/m2 Jamar Ball Other [facility] Other 04-05-2023 13:45-0400 Body weight 92.63 kg Jamar Ball Other [facility] Other 04-05-2023 13:45-0400 Diastolic blood pressure 67 mm[Hg] Jamar Ball Other [facility] Other 04-05-2023 13:45-0400 Respiratory rate 12 /min Jamar Ball Other [facility] Other 04-05-2023 13:45-0400 Systolic blood pressure 109 mm[Hg] Jamar Ball Other [facility] Other 03-15-2023 08:45-0400 Body height 168.91 cm Jamar Ball Other [facility] Other 03-15-2023 08:45-0400 Body mass index (BMI) [Ratio] 32.81 kg/m2 Jamar Ball Other [facility] Other 03-15-2023 08:45-0400 Body weight 93.62 kg Jamar Ball Other [facility] Other 03-15-2023 08:45-0400 Diastolic blood pressure 69 mm[Hg] Jamar Ball Other [facility] Other 03-15-2023 08:45-0400 Respiratory rate 12 /min Jamar Fall Other [facility] Other 03-15-2023 08:45-0400 Systolic blood pressure 131 mm[Hg] Jamar Fall Other [facility] Other 02-02-2023 09:32-0400 Body height 167.6 cm Marco A Esqueda MD Work Phone: [facility] 02-02-2023 09:32-0400 Body temperature 97.2 [degF] Marco A Esqueda MD Work Phone: [facility] 02-02-2023 09:32-0400 Body weight 96.62 kg Marco A Esqueda MD Work Phone: [facility] 02-02-2023 09:32-0400 Diastolic blood pressure 43 mm[Hg] Marco A Esqueda MD Work Phone: [facility] 02-02-2023 09:32-0400 Heart rate 50 /min Marco A Esqueda MD Work Phone: [facility] 02-02-2023 09:32-0400 Respiratory rate 16 /min Marco A Esqueda MD Work Phone: [facility] 02-02-2023 09:32-0400 SaO2% (BldA) [Mass fraction] 97 % Marco A Esqeuda MD Work Phone: [facility] 02-02-2023 09:32-0400 Systolic blood pressure 131 mm[Hg] Marco A Esqueda MD Work Phone: [facility] 11-10-2022 09:30-0400 Body height 167.6 cm Christo Howard APRN.DRIVER TRAINEE Work Phone: [facility] 11-10-2022 09:30-0400 Body temperature 97.11 [degF] Christo Howard APRN.DRIVER TRAINEE Work Phone: [facility] 11-10-2022 09:30-0400 Body weight 96.44 kg Christo Howard APRN.DRIVER TRAINEE Work Phone: [facility] 11-10-2022 09:30-0400 Diastolic blood pressure 68 mm[Hg] Christo Howard APRN.DRIVER TRAINEE Work Phone: [facility] 11-10-2022 09:30-0400 Heart rate 54 /min Christo Howard APRN.DRIVER TRAINEE Work Phone: [facility] 11-10-2022 09:30-0400 Respiratory rate 16 /min Christo Howard APRN.DRIVER TRAINEE Work Phone: [facility] 11-10-2022 09:30-0400 SaO2% (BldA) [Mass fraction] 98 % Christo Howard APRN.DRIVER TRAINEE Work Phone: [facility] 11-10-2022 09:30-0400 Systolic blood pressure 134 mm[Hg] Christo Howard APRN.DRIVER TRAINEE Work Phone: [facility] 09-16-2022 08:30-0500 Body height 168.91 cm Jamar Ball Other [facility] Other 09-16-2022 08:30-0500 Body mass index (BMI) [Ratio] 33.16 kg/m2 Jamar Ball Other [facility] Other 09-16-2022 08:30-0500 Body weight 94.62 kg Jamar Ball Other [facility] Other 09-16-2022 08:30-0500 Diastolic blood pressure 78 mm[Hg] Jamar Ball Other [facility] Other 09-16-2022 08:30-0500 Respiratory rate 12 /min Jamar Ball Other [facility] Other 09-16-2022 08:30-0500 Systolic blood pressure 116 mm[Hg] Jamar Ball Other [facility] Other 09-09-2022 08:30-0500 Body height 168.91 cm Jamar Ball Other [facility] [facility] Other 09-09-2022 08:30-0500 Body mass index (BMI) [Ratio] 33.45 kg/m2 Jamar Ball Other [facility] Other 09-09-2022 08:30-0500 Body weight 95.44 kg Jamar Ball Other [facility] Other 09-09-2022 08:30-0500 Diastolic blood pressure 76 mm[Hg] Jamar Ball Other [facility] Other 09-09-2022 08:30-0500 Respiratory rate 12 /min Jamar Ball Other [facility] Other 09-09-2022 08:30-0500 Systolic blood pressure 118 mm[Hg] Jamar Ball Other [facility] Other 09-09-2022 07:30-0500 Body height 168.91 cm Jamar Ball Other [facility] [facility] Other 09-09-2022 07:30-0500 Body mass index (BMI) [Ratio] 33.45 kg/m2 Jamar Ball Other [facility] Other 09-09-2022 07:30-0500 Body weight 95.44 kg Jamar Ball Other [facility] Other 09-09-2022 07:30-0500 Diastolic blood pressure 76 mm[Hg] Jamar Ball Other [facility] Other 09-09-2022 07:30-0500 Respiratory rate 12 /min Jamar Ball Other [facility] Other 09-09-2022 07:30-0500 Systolic blood pressure 118 mm[Hg] Jamar Ball Other [facility] Other 08-11-2022 09:24-0500 Body height 167.6 cm Marco A Esqueda MD Work Phone: [facility] 08-11-2022 09:24-0500 Body temperature 97 [degF] Marco A Esqueda MD Work Phone: [facility] 08-11-2022 09:24-0500 Body weight 96.44 kg Marco A Esqueda MD Work Phone: [facility] 08-11-2022 09:24-0500 Diastolic blood pressure 56 mm[Hg] Marco A Esqueda MD Work Phone: [facility] 08-11-2022 09:24-0500 Heart rate 53 /min Marco A Esqueda MD Work Phone: [facility] 08-11-2022 09:24-0500 Respiratory rate 16 /min Marco A Esqueda MD Work Phone: [facility] 08-11-2022 09:24-0500 SaO2% (BldA) [Mass fraction] 97 % Marco A Esqueda MD Work Phone: [facility] 08-11-2022 09:24-0500 Systolic blood pressure 129 mm[Hg] Marco A Esqueda MD Work Phone: [facility] 07-21-2022 15:30-0500 Body height 168.91 cm Jamar Ball Other [facility] Other 07-21-2022 15:30-0500 Body mass index (BMI) [Ratio] 34.18 kg/m2 Jamar Ball Other [facility] Other 07-21-2022 15:30-0500 Body weight 97.52 kg Jamar Ball Other [facility] [employer] Other 07-21-2022 15:30-0500 Diastolic blood pressure 76 mm[Hg] Jamar Ball Other [facility] [employer] Other 07-21-2022 15:30-0500 Respiratory rate 16 /min Jamar Ball Other [facility] [employer] Other 07-21-2022 15:30-0500 Systolic blood pressure 118 mm[Hg] Jamar Ball Other [facility] [employer] Other 05-13-2022 09:07-0400 Blood Pressure Location Anthony SCRUGGS [facility] 05-13-2022 09:07-0400 Diastolic blood pressure 72 mm[Hg] Anthony SCRUGGS [facility] 05-13-2022 09:07-0400 Heart rate 55 /min Anthony SCRUGGS [facility] 05-13-2022 09:07-0400 Respiratory rate 16 /min Anthony SCRUGGS [facility] 05-13-2022 09:07-0400 Systolic blood pressure 108 mm[Hg] Anthony SCRUGGS [facility] 05-12-2022 10:41-0400 Body temperature 97.81 [degF] LUAN Khan MD Work Phone: [facility] 05-12-2022 10:41-0400 Body weight 95.07 kg LUAN Khan MD Work Phone: [facility] 05-12-2022 10:41-0400 Diastolic blood pressure 42 mm[Hg] LUAN Khan MD Work Phone: [facility] 05-12-2022 10:41-0400 Heart rate 51 /min LUAN Khan MD Work Phone: [facility] 05-12-2022 10:41-0400 Respiratory rate 18 /min LUAN Khan MD Work Phone: [facility] 05-12-2022 10:41-0400 SaO2% (BldA) [Mass fraction] 99 % LUAN Khan MD Work Phone: [facility] 05-12-2022 10:41-0400 Systolic blood pressure 134 mm[Hg] LUAN Khan MD Work Phone: [facility] 02-17-2022 09:36-0400 Body height 167.6 cm Marco A Esqueda MD Work Phone: [facility] 02-17-2022 09:36-0400 Body temperature 97.9 [degF] Marco A Esqueda MD Work Phone: [facility] 02-17-2022 09:36-0400 Body weight 97.07 kg Marco A Esqueda MD Work Phone: [facility] 02-17-2022 09:36-0400 Diastolic blood pressure 58 mm[Hg] Marco A Esqueda MD Work Phone: [facility] 02-17-2022 09:36-0400 Heart rate 63 /min Marco A Esqueda MD Work Phone: [facility] 02-17-2022 09:36-0400 Respiratory rate 16 /min Marco A Esqueda MD Work Phone: [facility] 02-17-2022 09:36-0400 SaO2% (BldA) [Mass fraction] 99 % Marco A Esqueda MD Work Phone: [facility] 02-17-2022 09:36-0400 Systolic blood pressure 133 mm[Hg] Marco A Esqueda MD Work Phone: [facility] 11-18-2021 10:50-0400 Body temperature 97.7 [degF] Lab/[facility] Work Phone: [facility] 11-18-2021 10:50-0400 Diastolic blood pressure 63 mm[Hg] [facility] Work Phone: [facility] 11-18-2021 10:50-0400 Heart rate 60 /min [facility] Work Phone: [facility] 11-18-2021 10:50-0400 Respiratory rate 18 /min [facility] Work Phone: [facility] 11-18-2021 10:50-0400 SaO2% (BldA) [Mass fraction] 95 % [facility] Work Phone: [facility] 11-18-2021 10:50-0400 Systolic blood pressure 139 mm[Hg] [facility] Work Phone: [facility] 11-11-2021 13:58-0400 Body height 167.6 cm Marco A Esqueda MD Work Phone: [facility] 11-11-2021 13:58-0400 Body temperature 97.39 [degF] Marco A Esqueda MD Work Phone: [facility] 11-11-2021 13:58-0400 Body weight 98.97 kg Marco A Esqueda MD Work Phone: [facility] 11-11-2021 13:58-0400 Diastolic blood pressure 54 mm[Hg] Marco A Esqueda MD Work Phone: [facility] 11-11-2021 13:58-0400 Heart rate 68 /min Marco A Esqueda MD Work Phone: [facility] 11-11-2021 13:58-0400 Respiratory rate 16 /min Marco A Esqueda MD Work Phone: [facility] 11-11-2021 13:58-0400 SaO2% (BldA) [Mass fraction] 98 % Marco A Esqueda MD Work Phone: [facility] 11-11-2021 13:58-0400 Systolic blood pressure 130 mm[Hg] Marco A Esqueda MD Work Phone: [facility] 11-08-2021 13:03-0400 Blood Pressure Location Anthony SCRUGGS [facility] 11-08-2021 13:03-0400 Diastolic blood pressure 60 mm[Hg] Anthonycindy SCRUGGS [facility] 11-08-2021 13:03-0400 Heart rate 61 /min Anthony SCRUGGS [facility] 11-08-2021 13:03-0400 Systolic blood pressure 135 mm[Hg] Anthony SCRUGGS [facility] Encounters Encounter Date Encounter Type Care Provider Facility Start: 04-19-2024 ambulatory Anthony SCRUGGS Facili ty:[facility] Start: 04-01-2024 End: 04-01-2024 Refill Marco A Esqueda MD Work Phone: Hematology/Oncology Comment on above: Refill Request Start: 04-01-2024 End: 04-01-2024 Refill Aida Luo [facility] Work Phone: [facility] Comment on above: Refill Request Start: 03-29-2024 Encounter for preprocedural cardiovascular examination [facility] Start: 03-29-2024 End: 04-01-[address] [facility] Start: 03-29-2024 End: 04-01-2024 Encounter for other preprocedural examination [facility] Start: 03-29-2024 End: 04-01-2024 Encounter for preprocedural cardiovascular examination [facility] Start: 03-26-2024 End: 03-26-2024 ambulatory [place] [facility] Work Phone: Start: 03-26-2024 End: 03-26-2024 Patient encounter procedure [facility] Work Phone: Start: 02-29-2024 End: 02-29-2024 ambulatory ALEXIA FRANCO Not Available Start: 02-26-2024 End: 02-26-2024 ambulatory LONG BOO Not Available Start: 02-02-2024 End: 02-02-2024 ambulatory [facility] [place] Work Phone: Hematology/Oncology Comment on above: Malignant neoplasm o f prostate (HCC) (Primary Dx) Start: 02-02-2024 End: 02-02-2024 Patient encounter procedure Lynne Alarcon APRN.DRIVER TRAINEE Work Phone: Hematology/Oncology Comment on above: Malignant neoplasm o f prostate (HCC) (Primary Dx) Start: 01-25-2024 End: 01-25-2024 ambulatory JAMAR FALL Facility:[facility] Start: 01-25-2024 Non-patient / Non-visit [facility] Work Phone: Start: 11-23-2023 End: 11-23-2023 ambulatory [facility] Work Phone: Start: 11-23-2023 End: 11-23-2023 Patient encounter procedure [facility] Work Phone: Start: 11-02-2023 End: 11-02-2023 ambulatory [facility] Work Phone: Hematology/Oncology Comment on above: Malignant neoplasm o f prostate (HCC) (Primary Dx) Malignant neoplasm o f prostate (HCC) (Primary Dx); Essential hypertension; 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, unspecified vessel or lesion type; Type 2 diabetes mellitus without complication, without long-term current use of insulin (HCC); Lesion of skin of right ear; Abdominal discomfort Start: 11-02-2023 End: 11-02-2023 Patient encounter procedure Christo Howard DEPUTY [employer].DRIVER TRAINEE Work Phone: [place] Start: 10-30-2023 End: 10-30-2023 ambulatory JAMAR FALL Facility:[facility] Start: 10-30-2023 Non-patient / Non-visit [facility] Work Phone: Start: 10-20-2023 End: 10-21-2023 ambulatory Anthony Jesus SCRUGGS Facility:[facility] Start: 10-20-2023 End: 10-20-2023 Patient encounter procedure Anthony Lee SCRUGGS [facility] Start: 10-09-2023 Non-patient / Non-visit [facility] Work Phone: Start: 09-28-2023 End: 09-28-2023 ambulatory PABLO CHRISTINA Not Available Start: 09-12-2023 End: 09-12-2023 Patient encounter procedure [facility] Work Phone: Start: 09-06-2023 Non-patient / Non-visit [facility] Work Phone: Start: 08-28-[address] Bamboo flowsheet [address] [facility] [address] [employer]-DRIVER TRAINEE Work Phone: [facility] Start: 08-28-[address]23 Bamboo flowsheet [address] [facility]-DRIVER TRAINEE Work Phone: [facility] Start: 08-28-2023 End: 08-28-2023 Patient encounter procedure Long A Maryer [facility]-DRIVER TRAINEE Work Phone: [facility] Comment on above: Neoplasm of unspecif ied behavior of bone, soft tissue, and skin; Actinic keratosis Start: 08-28-2023 End: 08-28-2023 ambulatory LONG BOO Not Available Start: 08-24-2023 End: 08-24-2023 ambulatory Jamar Fall Other [facility] Other Start: 08-24-2023 Patient encounter procedure Jamar MENDIETA [facility] Start: 08-04-2023 End: 08-04-2023 ambulatory Jamar Fall Other [facility] Other Start: 08-04-2023 Telephone encounter Jamar Serrano [facility] Start: 08-03-2023 End: 08-03-2023 ambulatory JAMAR FALL Facility:[facility] Start: 07-27-2023 End: 07-27-2023 ambulatory JAMAR FALL Facility:[facility] Start: 06-22-2023 End: 06-22-2023 ambulatory AB [facility] Start: 06-05-2023 Telephone encounter Jamar Serrano [facility] Start: 06-05-2023 End: 06-05-2023 ambulatory EMELINA LOUIS [facility] Other Start: 05-30-2023 End: 05-30-2023 ambulatory Jamar Fall Other [facility] Other Start: 05-30-2023 Office outpatient vi sit 15 minutes Jamar Fall [facility] Start: 05-01-2023 End: 05-01-2023 ambulatory Jamar Fall Other [facility] Other Start: 05-01-2023 Office outpatient vi sit 15 minutes Jamar Fall [facility] Start: 04-27-2023 Telephone encounter Jamar Serrano [facility] Start: 04-27-2023 End: 04-27-2023 ambulatory [facility] Work Phone: Hematology/Oncology Comment on above: Malignant neoplasm o f prostate (HCC) (Primary Dx) Malignant neoplasm o f prostate (HCC) (Primary Dx); 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, unspecified vessel or lesion type; Essential hypertension; Type 2 diabetes mellitus without complication, without long-term current use of insulin (HCC) Start: 04-27-2023 End: 04-27-2023 Patient encounter procedure Christo Howard APRN.DRIVER TRAINEE Work Phone: [facility] Start: 04-25-2023 End: 04-25-2023 ambulatory Jamar Ball Other [facility] Other Start: 04-25-2023 Telephone encounter Jamar Ball [facility] Start: 04-24-2023 End: 04-24-2023 ambulatory JAMAR E BALL Facility:[facility] Start: 04-18-2023 End: 04-18-2023 ambulatory Jamar Ball Other [facility] Other Start: 04-18-2023 Telephone encounter Jamar Ball [facility] Start: 04-17-2023 End: 04-18-2023 ambulatory Anthony SCRUGGS Facility:[facility] Start: 04-17-2023 End: 04-17-2023 Patient encounter procedure Anthony SCRUGGS [facility] Start: 04-12-2023 End: 04-12-2023 ambulatory Jamar Fall Other [facility] Other Start: 04-12-2023 Telephone encounter Jamar Ball [facility] Start: 04-06-2023 End: 04-06-2023 ambulatory Jamar Ball Other [facility] [facility] Other Start: 04-06-2023 Telephone encounter Jamar Ball [facility] Start: 04-05-2023 End: 04-05-2023 ambulatory Jamar Ball Other [employer] [facility] Other Start: 04-05-2023 Office outpatient vi sit 15 minutes Jamar Ball [facility] Start: 04-05-2023 Telephone encounter Jamar Ball [facility] Start: 03-15-2023 End: 03-15-2023 ambulatory Jamar Ball Other [facility] Other Start: 03-15-2023 Office outpatient vi sit 25 minutes Jamar Fall [facility] Start: 02-05-2023 End: 02-05-2023 ambulatory Jamar Fall Other [facility] Other Start: 02-05-2023 Telephone encounter Jamar Fall [facility] Start: 02-02-2023 End: 02-02-2023 ambulatory [facility] [place] [place] Work Phone: Hematology/Oncology Comment on above: Malignant neoplasm o f prostate (HCC) (Primary Dx) Start: 02-02-2023 End: 02-02-2023 Patient encounter procedure Marco A Esqueda MD Work Phone: [facility] Start: 11-15-2022 End: 11-15-2022 ambulatory Jamar Fall Other [employer] [facility] Other Start: 11-15-2022 Encounter by [employer] Jamar Fall [facility] Start: 11-11-2022 End: 11-11-2022 ambulatory Jamar Fall Other [facility] [facility] Other Start: 11-11-2022 Encounter by [employer] Jamar Fall [facility] Start: 11-10-2022 End: 11-10-2022 ambulatory [facility] [facility] [place] Work Phone: Hematology/Oncology Comment on above: Malignant neoplasm o f prostate (HCC) (Primary Dx) Malignant neoplasm o f prostate (HCC) (Primary Dx); 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 Facility: Start: 09-16-2022 End: 09-16-2022 ambulatory Jamar Fall Other [employer] Other Start: 09-16-2022 Office outpatient vi sit 15 minutes Jamar Fall [facility] Start: 09-09-2022 End: 09-09-2022 ambulatory Jamar Fall Other [employer] Other Start: 09-09-2022 Patient encounter procedure Jamar MENDIETA [facility] Start: 09-05-2022 End: 09-06-2022 ambulatory NONE LISTED REQUEST Facility: Start: 08-11-2022 End: 08-11-2022 ambulatory [facility] Work Phone: Hematology/Oncology Comment on above: Malignant neoplasm o f prostate (HCC) (Primary Dx) Malignant neoplasm o f prostate (HCC) (Primary Dx); Bone metastasis (HCC); 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, unspecified vessel or lesion type; Essential hypertension; Type 2 diabetes mellitus without complication, without long-term current use of insulin (HCC) Start: 08-11-2022 End: 08-11-2022 Patient encounter procedure Marco A Esqueda MD Work Phone: [facility] Start: 07-21-2022 End: 07-22-[address] JAMAR FALL [employer] Other Start: 07-21-2022 Office outpatient vi sit 15 minutes Jamar Fall [facility] Start: 07-21-2022 Patient encounter procedure Jamar Fall [facility] Start: 07-21-2022 Telephone encounter Jamar Serrano [facility] Start: 05-27-2022 End: 05-28-2022 ambulatory NONE LISTED REQUEST Facility: Start: 05-13-2022 End: 05-13-2022 Patient encounter procedure Anthony SCRUGGS [facility] Start: 05-12-2022 End: 05-12-2022 Patient encounter procedure Zach Khan MD Work Phone: Radiation Oncology Comment on above: Malignant neoplasm o f prostate (HCC) (Primary Dx) Start: 05-12-2022 End: 05-12-2022 ambulatory [facility] [place] Work Phone: Hematology/Oncology Comment on above: Malignant neoplasm o f prostate (HCC) (Primary Dx) Start: 05-05-2022 End: 05-06-[address] ANTHONY SCRUGGS . Facility:[facility] Start: 05-02-2022 Telephone encounter Christo goldberg [facility] Work Phone: Hematology/Oncology Comment on above: Lab Orders Start: 04-27-2022 End: 04-28-2022 ambulatory LORA ENGLISH Facility:[facility] Start: 02-17-2022 End: 02-17-2022 ambulatory Marco A Esqueda MD Work Phone: Hematology/Oncology Comment on above: Malignant neoplasm o f prostate (HCC) (Primary Dx); Bone metastasis (HCC) Start: 02-17-2022 End: 02-17-2022 Patient encounter procedure Marco A Esqueda MD Work Phone: [facility] Start: 01-25-2022 End: 01-26-2022 ambulatory NONE LISTED REQUEST Facility: Start: 12-06-2021 Telephone encounter Clementine steinberg RN Work Phone: Hematology/Oncology Comment on above: Care Coordination (R efill Question) Start: 11-18-2021 End: 11-18-2021 ambulatory [facility] Work Phone: Hematology/Oncology Comment on above: Malignant [...] 11-08-2021 End: 11-08-2021 Patient encounter procedure Anthony Lee AKEL [facility] Start: 11-05-2021 End: 11-06-[address] MARCO A ESQUEDA Facility:[facility] Start: 11-04-2021 ambulatory Clementine lee RN Work Phone: Hematology/Oncology Comment on above: Oral Anti-cancer Age nt Education (Enzalutamide) Start: 11-04-2021 Telephone encounter Aida Coles [facility] Work Phone: Hematology/Oncology Comment on above: [...] 07-22-2021 Adult health examination Bam Fall Other [facility] Other Procedures Date Procedure Procedure Detail Performing Clinician Start: 08-28-2023 CRYOTHERAPY SKIN LESION Long Boo DEPUTY COURT-DRIVER TRAINEE Work Phone: Start: 08-28-2023 SKIN / NAIL BIOPSY Windy Boo DEPUTY COURT-DRIVER TRAINEE Work Phone: Start: 10-25-[address] JESE FALL Comment on above: Performed By: #### P SAD #### [facility] [address] [place], [place] [address] Dr. Bharait Aguiar Start: 05-05-[address] JESE FALL Comment on above: Performed By: #### P SAD ####[facility] [id number] [place], [place] [address]HrDr. Bharati Aguiar Start: 02-16-2022 Adult depression scr [...] Fall Other Start: 11-05-2014 Radical prostatectomy Ruperto SCRUGGS Start: 08-25-2014 Pre-surgery evaluation Jamar Fall Other Start: 08-25-2014 Preoperative cardiov ascular examination Jamar Fall Other Start: 08-17-2014 Coronary artery bypass graft Anthony SCRUGGS Start: 07-02-2014 Transrectal biopsy o f prostate using ultrasound guidance Anthony SCRUGGS Start: 01-09-2007 Urodynamic studies Pancho SCRUGGS Start: 03-27-2006 Cystoscopy Anthony CHAVEZ Start: 08-26-2005 Cystoscopy Anthony CHAVEZ Start: 09-02-2002 Cystoscopy Anthony CHAVEZ Appendectomy Anthony SCRUGGS Colonoscopy Anthony SCRUGGS Depression screening Reddy Fall Other Plan of Treatment Date Care Activity Detail Author Start: 01-24-2027 Diabetes Screening Diabetes Screening [facility] Start: 10-29-2026 Diabetes Screening Diabetes Screening [facility] Start: 04-24-2026 Diabetes Screening Diabetes Screening [facility] Start: 02-02-2026 DIABETES SCREEN DIABETES SCREEN [facility] Start: 11-10-2025 DIABETES SCREEN DIABETES SCREEN [facility] Start: 08-11-2025 DIABETES SCREEN DIABETES SCREEN [facility] Start: 05-12-2025 DIABETES SCREEN DIABETES SCREEN [facility] Start: 02-17-2025 DIABETES SCREEN DIABETES SCREEN [facility] Start: 11-11-2024 DIABETES SCREEN DIABETES SCREEN [facility] Start: 05-09-2024 End: 05-09-2024 Follow-up encounter Hematology/Oncology Comment on above: 3 month lab follow up with xgeva inj Start: 05-07-2024 End: 05-07-2024 Patient encounter procedure 05/07/2024 9:00 AM EDT Office Visit [facility] [address] [place] [address] 3 month lab follow up with xgeva inj [facility] Comment on above: 3 month lab follow up with xgeva inj Start: 05-03-2024 End: 05-03-2024 Patient encounter procedure 05/03/2024 9:00 AM EDT Office Visit [facility] [address] [place] [address] 3 month lab follow up with xgeva inj [facility] Comment on above: 3 month lab follow up with xgeva inj Start: 04-29-2024 End: 07-29-2024 CBC W Auto Differential panel - Blood COMPLETE BLOOD COUNT AND DIFFERENTIAL Lab Routine Malignant neoplasm of prostate (HCC) Expected: 04/29/2024, Expires: 07/29/2024 [facility] Work Phone: Comment on above: Expected: 04/29/2024, Expires: Start: 04-29-2024 End: 07-29-2024 Comprehensive metabolic 2000 panel - Serum or Plasma COMPREHENSIVE METABOLIC PANEL Lab Routine Malignant neoplasm of prostate (HCC) Expected: 04/29/2024, Expires: 07/29/2024 [facility] Comment on above: Expected: 04/29/2024, Expires: Start: 04-29-2024 End: 07-29-2024 Prostate specific Ag [Mass/volume] in Serum or Plasma PROSTATE-SPECIFIC ANTIGEN DIAGNOSTIC Lab Routine Malignant neoplasm of prostate (HCC) Expected: 04/29/2024, Expires: 07/29/2024 [facility] Comment on above: Expected: 04/29/2024, Expires: Start: 03-17-2024 Covid-19 Vaccine ( season) Covid-19 Vaccine () [facility] Start: 03-17-2024 Influenza [facility] Start: 02-26-2024 End: 02-26-2024 Patient encounter procedure 02/26/2024 10:10 AM EDT Office Visit [facility] [address] [place] [address] Long Boo APRN-DRIVER TRAINEE [address] [place] [address] [facility] Start: 11-03-2023 End: 02-02-2024 CBC W Auto Differential panel - Blood COMPLETE BLOOD COUNT AND DIFFERENTIAL Lab Routine Malignant neoplasm of prostate (HCC) Essential hypertension 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, unspecified vessel or lesion type Type 2 diabetes mellitus without complication, without long-term current use of insulin (HCC) Lesion of skin of right ear Abdominal discomfort Expected: 11/03/2023, Expires: 02/02/2024 [facility] Work Phone: Comment on above: Expected: 11/03/2023, Expires: 4 Start: 11-03-2023 End: 02-02-2024 Comprehensive metabolic 2000 panel - Serum or Plasma COMPREHENSIVE METABOLIC PANEL Lab Routine Malignant neoplasm of prostate (HCC) Essential hypertension 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, unspecified vessel or lesion type Type 2 diabetes mellitus without complication, without long-term current use of insulin (HCC) Lesion of skin of right ear Abdominal discomfort Expected: 11/03/2023, Expires: 02/02/2024 [facility] Work Phone: Comment on above: Expected: 11/03/2023, Expires: 4 Start: 11-03-2023 End: 02-02-2024 Prostate specific Ag [Mass/volume] in Serum or Plasma PROSTATE-SPECIFIC ANTIGEN DIAGNOSTIC Lab Routine Malignant neoplasm of prostate (HCC) Essential hypertension 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, unspecified vessel or lesion type Type 2 diabetes mellitus without complication, without long-term current use of insulin (HCC) Lesion of skin of right ear Abdominal discomfort Expected: 11/03/2023, Expires: 02/02/2024 [facility] Work Phone: Comment on above: Expected: 11/03/2023, Expires: 4 Start: 08-28-2023 End: 08-28-2023 Patient encounter procedure 08/28/2023 11:25 AM EST Office Visit [facility] [address] [place] [address] Logn Boo APRN-DRIVER TRAINEE [address] [place] [address] Arrived [facility] Comment on above: Arrived Start: 07-28-2023 End: 09-27-2023 CBC W Auto Differential panel - Blood CBC + DIFF Lab Routine Malignant neoplasm of prostate (HCC) 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, unspecified vessel or lesion type Essential hypertension Type 2 diabetes mellitus without complication, without long-term current use of insulin (HCC) Expected: 07/28/2023, Expires: 09/27/2023 [facility] Work Phone: Comment on above: Expected: 07/28/2023, Expires: Start: 07-28-2023 End: 09-27-2023 Comprehensive metabolic 2000 panel - Serum or Plasma COMP METABOLIC PANEL Lab Routine Malignant neoplasm of prostate (HCC) 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, unspecified vessel or lesion type Essential hypertension Type 2 diabetes mellitus without complication, without long-term current use of insulin (HCC) Expected: 07/28/2023, Expires: 09/27/2023 [facility] Work Phone: Comment on above: Expected: 07/28/2023, Expires: Start: 07-28-2023 End: 09-27-2023 Prostate specific Ag [Mass/volume] in Serum or Plasma PSA/PROSTSPECAG DIAG Lab Routine Malignant neoplasm of prostate (HCC) 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, unspecified vessel or lesion type Essential hypertension Type 2 diabetes mellitus without complication, without long-term current use of insulin (HCC) Expected: 07/28/2023, Expires: 09/27/2023 [facility] Work Phone: Comment on above: Expected: 07/28/2023, Expires: Start: 07-17-2023 Advance Directive Discussion Advance Directive Discussion [facility] Start: 07-17-2023 Behavioral Health Screening Behavioral Health Screening [facility] Start: 06-19-2023 Urine microalbumin profile [facility] Start: 05-03-2023 End: 07-03-2023 Basic metabolic 2000 panel - Serum or Plasma BASIC METABOLIC PNL Lab Routine Malignant neoplasm of prostate (HCC) Expected: 05/03/2023 (Approximate), Expires: 07/03/2023 [facility] Work Phone: Comment on above: Expected: 05/03/2023 (Approximate), Expi res: 07/03/2023 Start: 05-03-2023 End: 07-03-2023 CBC W Auto Differential panel - Blood CBC + DIFF Lab Routine Malignant neoplasm of prostate (HCC) Expected: 05/03/2023 (Approximate), Expires: 07/03/2023 [facility] Work Phone: Comment on above: Expected: 05/03/2023 (Approximate), Expi res: 07/03/2023 Start: 05-03-2023 End: 07-03-2023 Prostate specific Ag [Mass/volume] in Serum or Plasma PSA/PROSTSPECAG DIAG Lab Routine Malignant neoplasm of prostate (HCC) Expected: 05/03/2023 (Approximate), Expires: 07/03/2023 [facility] Work Phone: Comment on above: Expected: 05/03/2023 (Approximate), Expi res: 07/03/2023 Start: 05-03-2023 End: 07-03-2023 Testosterone [Mass/volume] in Serum or Plasma TESTOSTERONE TOTAL Lab Routine Malignant neoplasm of prostate (HCC) Expected: 05/03/2023 (Approximate), Expires: 07/03/2023 [facility] Work Phone: Comment on above: Expected: 05/03/2023 (Approximate), Expi res: 07/03/2023 Start: 03-17-2023 Covid-19 Vaccine ( season) Covid-19 Vaccine ( season) [facility] Start: 03-17-2023 Influenza vaccination [facility] Start: 02-16-2023 Adult depression screening assessment DEPRESSION SCREENING [facility] Start: 02-09-2023 End: 04-11-2023 CBC W Auto Differential panel - Blood CBC + DIFF Lab Routine Malignant neoplasm of prostate (HCC) 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, unspecified vessel or lesion type Essential hypertension Type 2 diabetes mellitus without complication, without long-term current use of insulin (HCC) Expected: 02/09/2023, Expires: 04/11/2023 [facility] Work Phone: Comment on above: Expected: 02/09/2023, Expires: Start: 02-09-2023 End: 04-11-2023 Comprehensive metabolic 2000 panel - Serum or Plasma COMP METABOLIC PANEL Lab Routine Malignant neoplasm of prostate (HCC) 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, unspecified vessel or lesion type Essential hypertension Type 2 diabetes mellitus without complication, without long-term current use of insulin (HCC) Expected: 02/09/2023, Expires: 04/11/2023 [facility] Work Phone: Comment on above: Expected: 02/09/2023, Expires: 3 Start: 02-09-2023 End: 04-11-2023 Prostate specific Ag [Mass/volume] in Serum or Plasma PSA/PROSTSPECAG DIAG Lab Routine Malignant neoplasm of prostate (HCC) 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, unspecified vessel or lesion type Essential hypertension Type 2 diabetes mellitus without complication, without long-term current use of insulin (HCC) Expected: 02/09/2023, Expires: 04/11/2023 [facility] Work Phone: Comment on above: Expected: 02/09/2023, Expires: 3 Start: 11-10-2022 Adult depression screening assessment DEPRESSION SCREENING [facility] Start: 08-22-2022 COVID-19 VACCINE (6 - Moderna series) COVID-19 VACCINE (6 - Moderna series) [facility] Start: 07-17-2022 ADVANCE DIRECTIVE DISCUSSION ADVANCE DIRECTIVE DISCUSSION [facility] Start: 07-17-2022 DEPRESSION ASSESSMENT DEPRESSION ASSESSMENT [facility] Start: 05-03-2022 Adult depression screening assessment DEPRESSION SCREENING [facility] Start: 05-03-2022 End: 07-03-2022 CBC W Auto Differential panel - Blood CBC + DIFF Lab Routine Malignant neoplasm of prostate (HCC) Expected: 05/03/2022, Expires: 07/03/2022 [facility] Work Phone: Comment on above: Expected: 05/03/2022, Expires: 2 Start: 05-03-2022 End: 07-03-2022 Comprehensive metabolic 2000 panel - Serum or Plasma COMP METABOLIC PANEL Lab Routine Malignant neoplasm of prostate (HCC) Expected: 05/03/2022, Expires: 07/03/2022 [facility] Work Phone: Comment on above: Expected: 05/03/2022, Expires: 2 Start: 05-03-2022 End: 07-03-2022 Prostate specific Ag [Mass/volume] in Serum or Plasma PSA/PROSTSPECAG DIAG Lab Routine Malignant neoplasm of prostate (HCC) Expected: 05/03/2022, Expires: 07/03/2022 [facility] Work Phone: Comment on above: Expected: 05/03/2022, Expires: 2 Start: 03-17-2022 Influenza vaccination [facility] Start: 11-02-2021 End: 01-02-2022 CBC W Auto Differential panel - Blood CBC + DIFF Lab Routine Malignant neoplasm of prostate (HCC) Expected: 11/02/2021, Expires: 01/02/2022 [facility] Work Phone: Comment on above: Expected: 11/02/2021, Expires: 2 Start: 11-02-2021 End: 01-02-2022 Comprehensive metabolic 2000 panel - Serum or Plasma COMP METABOLIC PANEL Lab Routine Malignant neoplasm of prostate (HCC) Expected: 11/02/2021, Expires: 01/02/2022 [facility] Work Phone: Comment on above: Expected: 11/02/2021, Expires: 2 Start: 09-14-2021 COVID-19 VACCINE (5 - Booster) COVID-19 VACCINE (5 - Booster) [facility] Start: 08-17-2021 COVID-19 VACCINE (4 - Booster for Moderna series) COVID-19 VACCINE (4 - Booster for Moderna series) [facility] Start: 07-17-2021 ADVANCE DIRECTIVE DISCUSSION ADVANCE DIRECTIVE DISCUSSION [facility] Start: 07-17-2021 DEPRESSION ASSESSMENT DEPRESSION ASSESSMENT [facility] Start: 02-22-2021 COVID-19 VACCINE (3 - Booster for Moderna series) COVID-19 VACCINE (3 - Booster for Moderna series) [facility] Start: 06-07-2015 PNEUMOVAX AGE 65 AND OVER WITH 5YR LOOKBACK (#1) PNEUMOVAX AGE 65 AND OVER WITH 5YR LOOKBACK (#1) [facility] Start: 06-20-2013 Urine microalbumin profile DTAP,TDAP,TD (1 - Tdap) [facility] Start: 08-22-2012 SHINGRIX VACCINE (2 of 3) SHINGRIX VACCINE (2 of 3) [facility] Start: 2006 RSV Vaccine (1 - 1-dose 60+ series) RSV Vaccine (1 - 1-dose 60+ series) [facility] Start: 02-14-1996 SHINGRIX VACCINE (1 of 2) SHINGRIX VACCINE (1 of 2) [facility] Start: 1991 COLOGUARD (FIT-DNA) COLOGUARD (FIT-DNA) [facility] Start: 1991 Colonoscopy COLONOSCOPY [facility] Start: 1991 COLORECTAL CANCER SCREENING COLORECTAL CANCER SCREENING [facility] Start: [address] COLONOGRAPHY [facility] Start: 1991 DIABETES SCREEN DIABETES SCREEN [facility] Start: 1991 FECAL OCCULT BLOOD FECAL OCCULT BLOOD [facility] Start: 1991 SIGMOIDOSCOPY SIGMOIDOSCOPY [facility] Start: 1981 LIPID SCREEN LIPID SCREEN [facility] Start: 02-14-1964 Anxiety Screening Anxiety Screening [facility] Start: 02-14-1964 Depression Screening Depression Screening [facility] Start: 02-14-1964 HEPATITIS C SCREENING HEPATITIS C SCREENING [facility] Start: 02-14-1964 Hepatitis C screening Hepatitis C Screening [facility] Dermatopathology exam Dermatopat hology exam Pathology and Cytology Timed Neoplasm of unspecified behavior of bone, soft tissue, and skin Release Upon Ordering for 1 Occurrences starting 08/28/2023 [facility] [employer] Work Phone: Comment on above: Release Upon Ordering for 1 Occurrences starting 08/28/2023 MR Cervical spine WO contrast [facility] US Extremity [facility] Immunization Date Immunization Notes Care Provider Iris quinonez 03-26-2024 influenza, high dose seasonal, preservative-free [facility] 05-01-2023 influenza virus vaccine, unspecified formulation [facility] 05-01-2023 influenza, high dose seasonal, preservative-free Jamar Fall Other [facility] 04-28-2022 influenza nasal, unspecified formulation [facility] Work Phone: [facility] 04-28-2022 influenza, high-dose , quadrivalent vaccine (FLUZONE HIGH DOSE QUADRIVALENT) [facility] Work Phone: [facility] 04-28-2022 influenza, high dose seasonal, preservative-free Jamar Fall Other [facility] 04-28-2022 influenza virus vaccine, unspecified formulation [facility] Work Phone: [facility] 04-21-2022 COVID-19 booster vaccine, age 12+ yr, bivalent (MODERNA) [facility] Work Phone: [facility] Comment on above: Result Comment: 2023: [id number] 01-21-2022 COVID-19 Vaccine Moderna - Documentation Purposes Only Jamar Fall Other [facility] Comment on above: Result Comment: 2023: [id number] 05-17-2021 COVID-19 Vaccine Moderna - Documentation Purposes Only Jamar Fall Other [facility] Comment on above: Result Comment: 2023: [id number] 04-22-2021 influenza virus vaccine, split virus (incl. purified surface antigen) Jamar Fall Other [facility] 04-22-2021 influenza virus vaccine, unspecified formulation [facility] 04-16-2021 influenza nasal, unspecified formulation Marco A Esqueda MD Work Phone: [facility] 04-16-2021 influenza virus vaccine, unspecified formulation Anthony SCRUGGS [facility] 09-22-2020 COVID-19 Vaccine Moderna - Documentation Purposes Only Jamar Fall Other [facility] 08-26-2020 SARS-CoV-2 (COVID-19 ) Ad26 vaccine, recombinant Anthony SCRUGGS [facility] 08-24-2020 COVID-19 original vaccine, full dose, monovalent (MODERNA) [facility] Work Phone: [facility] 07-17-2020 SARS-CoV-2 (COVID-19 ) [id number] vaccine Anthony SCRUGGS [facility] Comment on above: Result Comment: pt d oes not know the dates but states that he is fully vaccinated 04-23-2020 influenza virus vaccine, split virus (incl. purified surface antigen) Jamar Fall Other [facility] 04-23-2020 influenza virus vaccine, unspecified formulation [facility] 04-22-2019 influenza virus vaccine, split virus (incl. purified surface antigen) Jamar Fall Other [facility] 04-22-2019 influenza virus vaccine, unspecified formulation [facility] 04-16-2019 influenza nasal, unspecified formulation Marco A Esqueda MD Work Phone: [facility] 08-20-2018 zoster vaccine recombinant Marco A Esqueda MD Work Phone: [facility] 06-11-2018 zoster vaccine recombinant Marco A Esqueda MD Work Phone: [facility] 04-16-2018 influenza nasal, unspecified formulation Marco A Esqueda MD Work Phone: [facility] 03-27-2018 AS03 adjuvant [facility] [place] Work Phone: [facility] 03-27-2018 influenza nasal, unspecified formulation [facility] [place] Work Phone: [facility] 03-27-2018 influenza virus vaccine, split virus (incl. purified surface antigen) Jamar Fall Other [employer] Other 03-27-2018 influenza virus vaccine, unspecified formulation Anthonycindy SCRUGGS [facility] 03-27-2018 Seasonal trivalent influenza vaccine, adjuvanted, preservative free Marco A Esqueda MD Work Phone: [facility] 06-12-2017 pneumococcal polysaccharide vaccine, 23 valent Marco A Esqueda MD Work Phone: [facility] 06-01-2017 pneumococcal polysaccharide vaccine, 23 valent Jamar Fall Other [facility] 06-01-2017 Prevnar 20 Jamar Fall Other [facility] 05-31-2017 influenza nasal, unspecified formulation [facility] Work Phone: [facility] 05-31-2017 influenza virus vaccine, unspecified formulation Anthony SCRUGGS [facility] 05-31-2017 influenza, injectabl e, quadrivalent, preservative free Marco A Esqueda MD Work Phone: [facility] 04-03-2017 influenza nasal, unspecified formulation [facility] Work Phone: [facility] 04-03-2017 influenza virus vaccine, split virus (incl. purified surface antigen) Jamra Fall Other [employer] Other 04-03-2017 influenza virus vaccine, unspecified formulation Anthony SCRUGGS [facility] 04-03-2017 influenza, high dose seasonal, preservative-free Marco A Esqueda MD Work Phone: [facility] 03-23-2017 influenza nasal, unspecified formulation Marco A Esqueda MD Work Phone: [facility] 04-01-2016 influenza virus vaccine, split virus (incl. purified surface antigen) Jamar Fall Other [facility] 04-01-2016 influenza virus vaccine, unspecified formulation [facility] 03-31-2016 influenza nasal, unspecified formulation Marco A Esqudea MD Work Phone: [facility] 05-11-2015 influenza nasal, unspecified formulation Marco A Esqueda MD Work Phone: [facility] 05-11-2015 influenza, seasonal, injectable, preservative free [facility] Work Phone: [facility] 05-11-2015 pneumococcal conjuga te vaccine, 13 valent Marco A Esqueda MD Work Phone: [facility] 04-29-2015 pneumococcal polysaccharide vaccine, 23 valent Marco A Esqueda MD Work Phone: [facility] 06-09-2014 influenza nasal, unspecified formulation [facility] Work Phone: [facility] 06-09-2014 influenza, seasonal, injectable, preservative free Marco A Esqueda MD Work Phone: [facility] 06-19-2013 diphtheria, tetanus toxoids and acellular pertussis vaccine, unspecified formulation Marco A Esqueda MD Work Phone: [facility] 06-19-2013 tetanus and diphther ia toxoids, not adsorbed, for adult use Marco A Esqueda MD Work Phone: [facility] 05-23-2013 influenza nasal, unspecified formulation Marco A Esqueda MD Work Phone: [facility] 04-24-2013 tetanus and diphther ia toxoids, adsorbed, preservative free, for adult use (5 Lf of tetanus toxoid and 2 Lf of diphtheria toxoid) Jamar Fall Other [facility] 06-27-2012 zoster vaccine, live Marco A lake MD Work Phone: [facility] 06-11-2012 influenza nasal, unspecified formulation Marco A Esqueda MD Work Phone: [facility] 06-02-2011 influenza nasal, unspecified formulation Marco A Esqueda MD Work Phone: [facility] 06-23-2010 pneumococcal polysaccharide vaccine, 23 valent Jamar Fall Other [facility] 06-07-2010 pneumococcal polysaccharide vaccine, 23 valent Marco A Esqueda MD Work Phone: [facility] 06-07-2010 pneumococcal vaccine , unspecified formulation Marco A Esqueda MD Work Phone: [facility] 05-28-2010 influenza nasal, unspecified formulation Marco A Esqueda MD Work Phone: [facility] 01-14-2010 pneumococcal polysaccharide vaccine, 23 valent Jamar Fall Other [facility] 05-25-2009 influenza nasal, unspecified formulation Marco A Esqueda MD Work Phone: [facility] 06-09-2008 influenza nasal, unspecified formulation Marco A Esqueda MD Work Phone: [facility] 07-23-2003 influenza virus vaccine, whole virus Marco A Esqueda MD Work Phone: [facility] 01-14-2003 diphtheria, tetanus toxoids and acellular pertussis vaccine, unspecified formulation Jamar Fall Other [facility] 01-10-2003 TD(adult) unspecifie d formulation Marco A Esqueda MD Work Phone: [facility] 07-03-2002 influenza nasal, unspecified formulation Marco A Esqueda MD Work Phone: [facility] Payers Date Payer Category Payer Unknown MMO MMO MEDICARE SUPPLEMENT [id number] 2019-Present [phone] [address] [place] [address] Indemnity [id number] 2019 Unknown [id number] 2011 Medicare MEDICARE MEDICAR E A AND B [id number] 2011-Present [phone] [place] [address] Medicare [id number] 2011 Medicare [id number]. [id number] 1959 Medicare [id number] 1959 Self-pay 1959 Unknown [id number] 1946 Unknown [id number] 2.16.840.1.441954.3.579.2.593 1946 Unknown [id number] [id number] 1946 Unknown [id number] 2.16.840.1.973181.3.579.2.593 1946 Unknown [id number] 2.16.840.1.468576.3.579.2.593 1946 Unknown [id number] 2.16.840.1.445690.3.579.2.593 1946 Unknown [id number] 2.16840.1.031383.3.579.2.727 1946 Unknown [id number] 2.16.840.1.818046.3.579.2.727 1946 Unknown [id number] 2.16.840.1.554697.3.579.2.727 1946 Unknown [id number] 2.16.840.1.419540.3.579.2.1259 1946 Unknown [id number] 2.16.840.1.358796.3.579.2.1259 1946 Unknown [id number] 2.16.840.1.273356.3.579.2.1259 1946 Unknown [id number] 2.16.840.1.740512.3.579.2.1259 1946 Unknown [id number] 2.16.840.1.202481.3.579.2.1259 Unknown [id number] [id number] Unknown [id number] [id number] Unknown [id number] Social History Date Type Detail Facility Start: 11-08-2021 End: 08-11-2022 Tobacco smoking status NHIS Never smoked tobacco [facility] Start: 10-25-2021 End: 11-02-2023 Alcohol intake Current drinker of alcohol (finding) [facility] Start: 08-19-2014 History SDOH Alcohol Comment 1 day/wk [facility] Start: 1945 Sex Assigned At Not on file [facility] Start: 10-18-2021 End: 05-12-2022 Exposure to SARS-CoV-2 (event) Not sure [facility] Tobacco smoking status Never [facility] Start: 02-02-2023 End: 01-31-2024 Sex Assigned At Male [facility] Start: 1945 Sex Assigned At Male [facility] Start: 01-12-2018 End: 08-11-2022 Tobacco use and exposure Smokeless tobacco non-user [facility] Start: 02-02-2023 End: 01-31-2024 History of Social function [facility] Start: 02-11-2022 Gender identity Identifies as male gender (finding) [facility] Start: 02-11-2022 Sexual orientation Heterosexual (ce coburn) [facility] How often to you hav e [...] than 4 cups per day [facility] Start: 09-06-2023 Tobacco smoking status NHIS Ex-smoker (finding) [facility] NEGATED: Highlighted rowStart: CARISSAF History of tobacco use Passive smoker [facility] Medical Equipment Procedure Code Equipment Code Equipment Origin al Text Equipment Identifier Dates Start: 10-26-2021 End: 05-12-2022 Comment on above: 1 Each once daily. T o test blood sugars 1 Each once daily. T o test blood sugar Blood Sugar Diagnostic (Contour Next Test Strips) strip Start: 10-10-2023 Lancets (Lancets,Thin) [facility] Start: 09-08-2023 Blood Sugar Diagnostic (Contour Next Test Strips) strip Start: 09-08-2023 End: 10-10-2023 Blood Sugar Diagnostic (Contour Next Test Strips) strip Start: 10-10-2023 Lancets (Lancets,Thin) [facility] Start: 09-08-2023 Blood Sugar Diagnostic (Contour Next Test Strips) strip Start: 09-08-2023 End: 10-10-2023 Functional Status Date Assessment Result Facility 10-20-2023 Functional Status N/A [facility] 04-17-2023 Functional Status N/A [facility] 05-13-2022 Functional Status N/A [facility] Clinical Notes 07-17-2014 to 04-01-2024 Telephone Encounter - Aida Luo RP - 04/01/2024 3:59 PM EDTTelephone Encounter - Aida Luo RP - 04/01/2024 3:59 PM EDTPatient Instructions Note Date & Type Note Facility 04-01-2024 Telephone encounter Note Recd phone call from [facility] that they are unable to obtain the Xtandi 80mg tablets a this time and requested a script for the 40 mg dosing. Order pending Josh Luo PharmD, BCOP [facility] Work Phone: 04-01-2024 Miscellaneous Notes Recd phone call from [facility] that they are unable to obtain the Xtandi 80mg tablets a this time and requested a script for the 40 mg dosing. Order pending Josh Luo PharmD, IDALIA documented in this encounter [facility] 03-29-2024 Note Coronary artery dise ase is stable, no concerning symptoms currently overall is doing well he is planning bilateral carpal tunnel surgery soon with Dr. Charlton. Continue GDMT-continue aspirin, Lipitor, metoprolol, and lisinopril continue risk factor modifications- heart healthy diet, regular exercise as tolerated and continue all medications. [facility] 03-29-2024 Note Hypertension is well -controlled at 127/51 Continue lisinopril/hydrochlorothiazide and metoprolol. Renal function normal [facility] 03-29-2024 Note Lipid abnormalities are stable continue Lipitor 40 mg daily lipid profile is well-controlled and liver function is normal [facility] 03-29-2024 Note Reviewed echocardiog tabby from July 08 moderate aortic stenosis noted and reviewed echo with patient and his No concerning symptoms at this time patient would like symptoms including palpitations, lightheaded dizziness, syncope, chest pain, worsening shortness of breath and he voiced understanding Monitor with echocardiogram [facility] 03-29-2024 Note RCRI=1 points Class II Risk 6.0 % 30-day risk of , [place], or cardiac arrest From a cardiac perspective pt may proceed with carpal tunnel surgery, he is a moderate risk for a low risk surgery. She may hold aspirin 5-7 days prior and resume post op. Please monitor hemodynamics carefully and prevent any major fluid shifts. [facility] 03-29-2024 Note Pt is here for surge ry clearance. Pt denies chest pain, sob, palpatations Review of Systems Musculoskeletal: Positive for arthritis, back pain, joint pain and myalgias. All other systems reviewed and are negative. [facility] 03-29-2024 Note [facility] CARDIOLOGY PROGR ESS NOTE HPI: Pablo Felix is a 79 y.o. male here for Preop cardiac evaluation for surgery HPI Pt is here for surgery clearance. Pt denies chest pain, sob, palpitations Known h/o CAD, hypertension, and hyperlipidemia. Patient is being evaluated for upcoming bilateral carpal tunnel surgery with Dr. Navas. Overall states he is feeling well denies any activity limiting symptoms of chest pain or shortness of breath Denies any weight gain or fluid retention or leg swelling. Denies orthopnea. His biggest concern complaint is myalgias and joint pain from arthritis. Review of Systems Musculoskeletal: Positive for arthritis, back pain, joint pain and myalgias. All other systems reviewed and are negativ Visit Vitals BP 127/51 (BP Location: Right arm, Patient Position: Sitting) Pulse 65 Ht 1.651 m (5' 5 ) Wt 93 kg (205 lb) SpO2 97% BMI 34.11 kg/m??? Smoking Status Never BSA 2.07 m??? Allergies Allergen Reactions Penicillins Hives, Other and Unknown Other reaction(s): Unknown Other Reaction(s): HIVES, Unknown Medications: Current Outpatient Medications on File Prior to Visit Medication Sig Dispense Refill aspirin 81 mg chewable tablet Chew 1 tablet every day by oral route. atorvastatin (Lipitor) 40 mg tablet Take 1 tablet by mouth in the evening. enzalutamide 80 mg tablet Take 160 mg by mouth in the morning. glimepiride (Amaryl) 1 mg tablet TAKE 1/2 TABLET BY MOUTH DAILY 30 MINUTES PRIOR TO BREAKFAST lisinopriL-hydrochlorothiazide 20-12.5 mg tablet Take 1 tablet by mouth in the morning. metFORMIN (Glucophage) 500 mg tablet Take 500 mg by mouth with breakfast and with evening meal. metoprolol tartrate (Lopressor) 25 mg tablet Take 1 tablet by mouth in the morning and at bedtime. No current facility-administered medications on file prior to visit. Physical Exam: Constitutional: Appearance: Normal appearance. Without apparent distress obese, HENT: Head: Normocephalic and atraumatic. Nose: Nose normal. Mouth/Throat: Mouth: Mucous membranes are moist. Eyes: Extraocular Movements: Extraocular movements intact. Conjunctiva/sclera: Conjunctivae normal. Neck: Vascular: No JVD. Cardiovascular: Rate and Rhythm: Normal rate and regular rhythm. Pulses: Dorsalis pedis pulses are 3 on the right side and 3on the left side. Posterior tibial pulses are 3 on the right side and 3 on the left side. Heart sounds: Systolic murmur right upper sternal border 2/6, S1 normal and S2 normal. Pulmonary: Effort: Pulmonary effort is normal. Breath sounds: Normal breath sounds. Abdominal: General: Bowel sounds are normal. Palpations: Abdomen is soft. Musculoskeletal: General: Normal range of motion. Cervical back: Normal range of motion. Right lower leg: No edema. Left lower leg: No edema. Skin: General: Skin is warm and dry. Capillary Refill: Capillary refill takes less than 2 seconds. Neurological: General: No focal deficit present. Mental Status: he is alert and oriented to person, place, and time. Psychiatric: Mood and Affect: Mood normal. Behavior: Behavior normal. Thought Content: Thought content normal. Judgment: Judgment normal. Labs: CBC stable with noted anemia renal function normal, liver function normal Patient states PCP has completed lipid profile and stated everything was well-controlled Component 01/25/24 10/30/23 07/27/23 04/24/23 02/02/23 11/10/22 WBC 6.80 8.19 6.43 6.80 7.27 7.73 RBC 3.67 Low 3.90 Low 3.67 Low 3.87 Low 3.72 Low 3.85 Low Hemoglobin 11.8 Low 12.2 Low 11.8 Low 12.2 Low 12.0 Low 12.3 Low Hematocrit 34.6 Low 35.8 Low 34.8 Low 36.2 Low 35.5 Low 36.4 Low MCV 94.3 91.8 94.8 93.5 95.4 94.5 MCH 32.2 31.3 32.2 31.5 32.3 31.9 MCHC 34.1 34.1 33.9 33.7 33.8 33.8 RDW-CV 12.7 12.8 12.5 13.1 12.9 13.3 Platelet Count 184 192 199 195 197 206 Component 01/25/24 10/30/23 07/27/23 04/24/23 02/02/23 11/10/22 Protein, Total 6.6 6.5 6.6 -- 6.7 6.5 Albumin 4.0 4.1 4.2 -- 4.3 4.1 Calcium, Total 9.9 9.8 9.5 10.2 9.8 9.5 Bilirubin, Total 0.7 0.7 0.6 -- 0.7 0.5 Alkaline Phosphatase 74 75 73 -- 69 72 AST 19 16 17 -- 18 18 ALT 18 16 16 -- 18 20 Glucose 112 High 128 High 117 High 113 High 119 High 121 High BUN 15 18 13 11 16 14 Creatinine 0.79 0.88 0.85 0.75 0.84 0.85 Sodium 137 140 138 137 137 136 Potassium 5.2 High 4.8 4.8 4.9 4.5 4.8 Chloride 103 103 102 100 102 101 CO2 25 24 26 24 27 28 Anion Gap 9 13 10 13 8 Low 7 Low Estimated Glomerular Filtration Rate 91 89 89 93 90 90 Last lab values have been reviewed CV Testing: EKG today 03/29/24-sinus bradycardia with left bundle branch block-no acute ST-T wave changes noted, no acute concerns Investigations: Left internal mammary artery graft to the left anterior descending, saphenous vein graft to the posterior descending, saphenous vein graft to the OM1 (2014) Echocardiogram 01/26/2021 LVSF normal Mild DD Mild AV stenosis and regur (more content not included)... [facility] 02-02-2024 Instructions Lynne Alarcon APRN.CNP - 02/02/2024 11:37 AM EDT Possible signs of recurrence of your cancer that need reported to your oncology team includes but is not limited to: - Unintentional weight loss, changes to appetite, or energy - Worsening shortness of breath, coughing up blood or abnormal sputum - New and persistent pain especially in the lungs, abdomen, or bones - Abdominal bloating/distention that won't go away - Yellowing to skin or whites of eyes - New and persistent headaches, changes to vision, difficulties walking/talking, troubles swallowing, increasing confusion documented in this encounter [facility] 02-02-2024 History of Present illness Narrative PATIENT NAME: Pablo Felix DATE: February 02, 2024 PRIMARY CARE PHYSICIAN: Dr. Jamar Fall OTHER PHYSICIANS: Dr. Anthony Scruggs, Dr. Khan, [facility] Cardiology This note was copied from prior heme/onc encounter from 11/02/23. The patient's medications, allergies, past medical/surgical hx, family hx, ROS, and physical exam have all been reviewed and updated as appropriate. The interval history and assessment/plan content have been modified and are specific to today's (February 02, 2024) purpose for the visit. CC: This is a 78 year old male with metastatic prostate cancer, seen for scheduled follow-up. INTERIM HISTORY: Mr. Felix presents for follow up of his prostate CA. He remains on Xtandi and tolerates well. He receives Xgeva every 3 months and is due for this today. Has occasional diarrhea. Takes 1/2 Imodium for this which keeps it controlled. Otherwise the patient and his say he is doing well. Denies unintentional wt loss, poor appetite or energy, new/worsening bone pain, CP, SOB, swelling, bleeding. MEDICATIONS: Current Outpatient Medications Medication Sig ipratropium bromide (ATROVENT) 42 mcg (0.06 %) nasal spray 2 Sprays. enzalutamide (XTANDI) 80 mg tablet Take 2 tablets (160 mg) by mouth once daily. Calcium Citrate-Vitamin D3 200 mg-6.25 mcg (250 unit) tab Take 2 tablets by mouth once daily. metoprolol succinate ER (TOPROL XL) 25 mg 24 hr tablet Take by mouth. Szsdkplbgalms-Klhfftyr-Jeoxca (MULTIVITAMIN 50 PLUS) tab Take 1 tablet [...] paralysis, seizures or tremors. PHYSICAL EXAM: BP 137/54 Pulse (!) 52 Temp 36.3 C (97.3 F) (Temporal) Resp 16 Ht 167.6 cm (5' 5.98 ) Wt 93.7 kg (206 lb 9.1 oz) SpO2 98% BMI 33.36 kg/m ECOG PS: 0-1 General: Alert, oriented x 3. NAD. Non-toxic appearing. Well-nourished. HEENT: No scleral icterus. Heart: HRR s1s2 Lungs: Lungs CTA, no wheezing, rales, rhonchi or crackles ,non-labored breathing. Abdominal: Abd rounded but soft, NT, ND. Extremities: No edema or cyanosis. Skin: No rashes, bruising, or petechiae. Neuro: Non-focal exam without deficits. 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 Left base margin positive for neoplasm. Seminal vesicles with no diagnostic abnormality. 2 resected lymph nodes negative for neoplasm. LABS: Hemoglobin (g/dL) Date Value 01/25/2024 11.8 05/08/2018 12.8 Hematocrit (%) Date Value 01/25/2024 34.6 05/08/2018 36.8 WBC (k/uL) Date Value 01/25/2024 6.80 05/08/2018 5.63 Platelet Count (k/uL) Date Value 01/25/2024 184 05/08/2018 168 PSA 01/21/2019 <0.13 09/26/2019 0.09 06/17/2020 0.43 09/07/2020 0.84 05/06/2021 1.09 07/19/2021 1.58 10/25/2021 2.64 12/30/2021 0.14 02/17/2022 0.03 05/12/2022 0.12 08/11/2022 0.11 10/25/2022 0.13 02/02/2023 0.09 04/24/2023 0.12 07/27/2023 0.13 10/29/2023 0.16 01/25/2024 0.15 RADIOLOGY/OTHER STUDIES: 11/05/2021 CT chest/abdomen/pelvis ([facility]) Several sclerotic lesions consistent with metastatic disease. No evidence of visceral organ involvement or lymphadenopathy. 11/05/2021 Bone scan ([facility]) Multifocal osseous metastasis including the left femur at the lesser trochanter, right pubis symphysis, multiple ribs bilaterally. 01/22/2018 Nuclear bone scan ([facility]) New focal increased activity left frontal bone, left T8 vertebral body. 01/22/2018 MRI pelvis ([facility]) 4.5 cm area of T2 signal in the prostate bed. 07/24/2014 CT abdomen/pelvis ([facility]) Diffuse prostatic enlargement with indentation of the bladder base. Incidental 2.5 x 1 cm exophytic hypodense lesion adjacent to the pancreatic body. ASSESSMENT/PLAN: 1. Metastatic prostate cancer (HCC) - ICD9: 185, ICD10: C61 (primary diagnosis) The patient was diagnosed with early-stage high-grade prostate cancer in June 2014 (TRUS biopsy 07/02/2014). He underwent a radical prostatectomy on 11/05/2014. [...] suppressed at <12. Bone scan obtained at [facility] 11/05/2021 revealed multiple bone metastases. CT scans [...] Currently the patient is clinically stable and PSA remains stable. At this time the patient will continue as is with Xtandi 160 mg daily plus Xgeva every 3 months. He will receive Xgeva today. We will see him back in 3 months with labs. We will monitor his testosterone level and PSA, and would recommend that he resume Lupron if any significant changes. PSA 0.15, CMP and CBC/D are acceptable. Pt will stable, mild normocytic normochromic anemia. Hgb tends to run high 11s- low 12s. 2. Coronary artery disease - ICD9: 414.01, ICD10: I25.10 Status post CABG 08/17/2014 ([facility]). Stable on current medications. Continue per [...] negative. Will monitor with repeat CT scan. 6. 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 Will refer to dermatology for management. The lesion was removed through [facility]. He is following accordingly. 7. Abdominal discomfort - ICD9: 789.00, ICD10: R10.9 Since the spring 2022 the patient has had vague abdominal discomfort after eating certain foods. No severe pain, nausea/vomiting or change in bowel habits. I suggested referral to GI to evaluate for EGD, but the patient requested to hold off. I suggested trial of OTC omeprazole 20 mg daily to take as needed. If GI symptoms worsen would reconsider referral to GI. He says these symptoms have been improving some. RTC in 3 months with labs, Xgeva, and Dr. Esqueda follow up. Lynne Alarcon APRN.ALEXA Hematology/Oncology [facility]/ [facility] [phone] CC: Dr. Anthony Scruggs documented in this encounter [facility] 02-02-2024 Note HNO ID: [id number] Author: LYNNE ALARCON APRN.ALEXA Service: ? Author Type: Nurse Practitioner Type: Progress Notes Filed: 02/02/2024 11:37 Note Text: PATIENT NAME: Pablo Felix DATE: February 02, 2024 PRIMARY CARE PHYSICIAN: Dr. Jamar Fall OTHER PHYSICIANS: Dr. Anthony Scruggs, Dr. Khan, [facility] Cardiology This note was copied from prior heme/onc encounter from 11/02/23. The patient's medications, allergies, past medical/surgical hx, family hx, ROS, and physical exam have all been reviewed and updated as appropriate. The interval history and assessment/plan content have been modified and are specific to today's (February 02, 2024) purpose for the visit. CC: This is a 78 year old male with metastatic prostate cancer, seen for scheduled follow-up. INTERIM HISTORY: Mr. Felix presents for follow up of his prostate CA. He remains on Xtandi and tolerates well. He receives Xgeva every 3 months and is due for this today. Has occasional diarrhea. Takes 1/2 Imodium for this which keeps it controlled. Otherwise the patient and his say he is doing well. Denies unintentional wt loss, poor appetite or energy, new/worsening bone pain, CP, SOB, swelling, bleeding. MEDICATIONS: Current Outpatient Medications Medication Sig ipratropium bromide (ATROVENT) 42 mcg (0.06 %) nasal spray 2 Sprays. enzalutamide (XTANDI) 80 mg tablet Take 2 tablets (160 mg) by mouth once daily. Calcium Citrate-Vitamin D3 200 mg-6.25 mcg (250 unit) tab Take 2 tablets by mouth once daily. metoprolol succinate ER (TOPROL XL) 25 mg 24 hr tablet Take by mouth. Yornwyevafxln-Svuywroq-Gzqfmd (MULTIVITAMIN 50 PLUS) tab Take 1 tablet [...] paralysis, seizures or tremors. PHYSICAL EXAM: BP 137/54 Pulse (!) 52 Temp 36.3 ?C (97.3 ?F) (Temporal) Resp 16 Ht 167.6 cm (5' 5.98 ) Wt 93.7 kg (206 lb 9.1 oz) SpO2 98% BMI 33.36 kg/m? ECOG PS: 0-1 General: Alert, oriented x 3. NAD. Non-toxic appearing. Well-nourished. HEENT: No scleral icterus. Heart: HRR s1s2 Lungs: Lungs CTA, no wheezing, rales, rhonchi or crackles ,non-labored breathing. Abdominal: Abd rounded but soft, NT, ND. Extremities: No edema or cyanosis. Skin: No rashes, bruising, or petechiae. Neuro: Non-focal exam without deficits. 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 Left base margin positive for neoplasm. Seminal vesicles with no diagnostic abnormality. 2 resected lymph nodes negative for neoplasm. LABS: Hemoglobin (g/dL) Date Value 01/25/2024 11.8 05/08/2018 12.8 Hematocrit (%) Date Value 01/25/2024 34.6 05/08/2018 36.8 WBC (k/uL) Date Value 01/25/2024 6.80 05/08/2018 5.63 Platelet Count (k/uL) Date Value 01/25/2024 184 05/08/2018 168 PSA 01/21/2019 <0.13 09/26/2019 0.09 06/17/2020 0.43 09/07/2020 0.84 (more content not included)... [facility] 11-02-2023 Note HNO ID: [id number] Author: CHRISTO HOWARD APRN.ALEXA Service: ? Author Type: Nurse Practitioner Type: Progress Notes Filed: 11/03/2023 11:11 Note Text: PATIENT NAME: Pablo Felix DATE: 11/02/2023 PRIMARY CARE PHYSICIAN: Dr. Jamar Fall OTHER PHYSICIANS: Dr. Anthony Scruggs, Dr. Khan, [facility] Cardiology Portions of this encounter note have been copied from the note from 08/03/2023 and has been updated where appropriate, and reflect my current medical decision making from today. CC: This is a 78 year old male with metastatic prostate cancer, seen for scheduled follow-up. INTERIM HISTORY: Pablo Felix returns for follow-up. He remains on Xtandi 160 mg daily and is tolerating it well. He denies any significant bleeding and side effects from the Xtandi. He has occasional diarrhea and takes occasional Imodium. He denies fevers, chills, night sweats and signs/symptoms of infection. No bleeding or abnormal bruising. He offers no new complaints today. No new issues, problems or concerns. MEDICATIONS: Current Outpatient Medications Medication Sig ipratropium bromide (ATROVENT) 42 mcg (0.06 %) nasal spray 2 Sprays. enzalutamide (XTANDI) 80 mg tablet Take 2 tablets (160 mg) by mouth once daily. Calcium Citrate-Vitamin D3 200 mg-6.25 mcg (250 unit) tab Take 2 tablets by mouth once daily. metoprolol succinate ER (TOPROL XL) 25 mg 24 hr tablet Take by mouth. Haqjbwujzjtdf-Zpnvqmds-Qnasnd (MULTIVITAMIN 50 PLUS) tab Take 1 tablet [...] seizures or tremors. PHYSICAL EXAM: BP (!) 123/44 Pulse (!) 56 Temp 36.6 ?C (97.8 ?F) (Temporal) Resp 16 Ht 167.6 cm (5' 5.98 ) Wt 92.9 kg (204 lb 12.9 oz) SpO2 97% BMI 33.07 kg/m? 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 Left base margin positive for neoplasm. Seminal vesicles with no diagnostic abnormality. 2 resected lymph nodes negative for neoplasm. LABS: Hemoglobin (g/dL) Date Value 10/30/2023 12.2 05/08/2018 12.8 Hematocrit (%) Date Value 10/30/2023 35.8 05/08/2018 36.8 WBC (k/uL) Date Value 10/30/2023 8.19 05/08/2018 5.63 Platelet Count (k/uL) Date Value 10/30/2023 192 05/08/2018 168 PSA 01/21/2019 <0.13 09/26/2019 0.09 (more content not included)... [facility] 11-02-2023 History of Present illness Narrative PATIENT NAME: Pablo Felix DATE: 11/02/2023 PRIMARY CARE PHYSICIAN: Dr. Jamar Fall OTHER PHYSICIANS: Dr. Anthony Scruggs, Dr. Khan, [facility] Cardiology Portions of this encounter note have been copied from the note from 08/03/2023 and has been updated where appropriate, and reflect my current medical decision making from today. CC: This is a 78 year old male with metastatic prostate cancer, seen for scheduled follow-up. INTERIM HISTORY: Pablo Felix returns for follow-up. He remains on Xtandi 160 mg daily and is tolerating it well. He denies any significant bleeding and side effects from the Xtandi. He has occasional diarrhea and takes occasional Imodium. He denies fevers, chills, night sweats and signs/symptoms of infection. No bleeding or abnormal bruising. He offers no new complaints today. No new issues, problems or concerns. MEDICATIONS: Current Outpatient Medications Medication Sig ipratropium bromide (ATROVENT) 42 mcg (0.06 %) nasal spray 2 Sprays. enzalutamide (XTANDI) 80 mg tablet Take 2 tablets (160 mg) by mouth once daily. Calcium Citrate-Vitamin D3 200 mg-6.25 mcg (250 unit) tab Take 2 tablets by mouth once daily. metoprolol succinate ER (TOPROL XL) 25 mg 24 hr tablet Take by mouth. Xtrldsqqgabmh-Vrfbqujy-Uizydm (MULTIVITAMIN 50 PLUS) tab Take 1 tablet [...] seizures or tremors. PHYSICAL EXAM: BP (!) 123/44 Pulse (!) 56 Temp 36.6 C (97.8 F) (Temporal) Resp 16 Ht 167.6 cm (5' 5.98 ) Wt 92.9 kg (204 lb 12.9 oz) SpO2 97% BMI 33.07 kg/m ECOG 0 Exam limited to gross [...] Radical retropubic prostatectomy and bilateral pelvic lymphadenectomy ([facility]) Poorly differentiated prostatic adenocarcinoma of left prostate. Left base margin positive for neoplasm. Seminal vesicles with no diagnostic abnormality. 2 resected lymph nodes negative for neoplasm. LABS: Hemoglobin (g/dL) Date Value 10/30/2023 12.2 05/08/2018 12.8 Hematocrit (%) Date Value 10/30/2023 35.8 05/08/2018 36.8 WBC (k/uL) Date Value 10/30/2023 8.19 05/08/2018 5.63 Platelet Count (k/uL) Date Value 10/30/2023 192 05/08/2018 168 PSA 01/21/2019 <0.13 09/26/2019 0.09 06/17/2020 0.43 09/07/2020 0.84 05/06/2021 1.09 07/19/2021 1.58 10/25/2021 2.64 12/30/2021 0.14 02/17/2022 0.03 05/12/2022 0.12 08/11/2022 0.11 10/25/2022 0.13 02/02/2023 0.09 04/24/2023 0.12 07/27/2023 0.13 10/29/2023 0.16 RADIOLOGY/OTHER STUDIES: 11/05/2021 CT chest/abdomen/pelvis ([facility]) Several sclerotic lesions consistent with metastatic disease. No evidence of visceral organ involvement or lymphadenopathy. 11/05/2021 Bone scan ([facility]) Multifocal osseous metastasis including the left femur at the lesser trochanter, right pubis symphysis, multiple ribs bilaterally. 01/22/2018 Nuclear bone scan ([facility]) New focal increased activity left frontal bone, left T8 vertebral body. 01/22/2018 MRI pelvis ([facility]) 4.5 cm area of T2 signal in the prostate bed. 07/24/2014 CT abdomen/pelvis ([facility]) Diffuse prostatic enlargement with indentation of the bladder base. Incidental 2.5 x 1 cm exophytic hypodense lesion adjacent to the pancreatic body. ASSESSMENT/PLAN: 1. Metastatic prostate cancer (HCC) - ICD9: 185, ICD10: C61 (primary diagnosis) The patient was diagnosed with early-stage high-grade prostate cancer in June 2014 (TRUS biopsy 07/02/2014). He underwent a radical prostatectomy on 11/05/2014. Pathology consistent with stage IIIC (pT2b, N0, M0), Burlington 5+4 equal 9. Postop the patient's PSA [...] suppressed at <12. Bone scan obtained at [facility] 11/05/2021 revealed multiple bone metastases. CT scans [...] Currently the patient is clinically stable and PSA remains stable. At this time the patient will continue as is with Xtandi 160 mg daily plus Xgeva every 3 months. He will receive Xgeva today. We will see him back in 3 months with labs. We will monitor his testosterone level and PSA, and would recommend that he resume Lupron if any significant changes. 2. Coronary artery disease - ICD9: 414.01, ICD10: I25.10 Status post CABG 08/17/2014 ([facility]). Stable on current medications. Continue per [...] negative. Will monitor with repeat CT scan. 6. 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 Will refer to dermatology for management. 7. Abdominal discomfort - ICD9: 789.00, ICD10: R10.9 Since the spring 2022 the patient has had vague abdominal discomfort after eating certain foods. No severe pain, nausea/vomiting or change in bowel habits. I suggested referral to GI to evaluate for EGD, but the patient requested to hold off. I suggested trial of OTC omeprazole 20 mg daily to take as needed. If GI symptoms worsen would reconsider referral to GI. Christo Howard APRN.CNP CC: Dr. Anthony Scruggs I spent a total of 30 minutes on the date of the service which included preparing to see the patient, unnm-wd-eclb patient care, completing clinical documentation, obtaining and/or reviewing separately obtained history, performing a medically appropriate examination, counseling and educating the patient/family/caregiver, ordering medications, tests, or procedures, independently interpreting results (not separately reported), and communicating results to the patient/family/caregiver. documented in this encounter [facility] 10-20-2023 Hospital Discharge instructions Patient Education 10/20/2023 09:54:58 Prostate Cancer Prostate Cancer The prostate is [...] under a microscope. This is called the Burlington score and the total score can range from 6 10, indicating how likely it is that the cancer will spread (metastasize) to other parts of the body. The higher the score, the greater the likelihood that the cancer will spread. Burlington 6 or lower: This indicates that the cancer cells look similar to normal prostate cells (well differentiated). Lucrecia 7: This indicates that the cancer cells look somewhat similar to normal prostate cells (moderately differentiated). Burlington 8, 9, or 10: This indicates that [...] you need help quitting, ask your health care provider. Eat a healthy diet. To do this: [...] support group may help you learn to manage the stress of having cancer. General instructions Take ctwq-iaj-ttxoazb and prescription medicines only as told by your health care provider. If you have to go to the hospital, notify your cancer specialist (oncologist). Keep all follow-up visits. This is important. Where to find more information [place] [employer]: www.cancer.org [place] [employer] Clinical Oncology: www.cancer.net National Cancer [place]: www.cancer.gov Contact a health care provider if: [...] support group may help you learn to manage the stress of having cancer. This information is not intended to replace advice given to you by your health care provider. Make sure you discuss any questions you have with your health care provider. Document Revised: 09/29/2021 Document Reviewed: 09/29/2021 [employer] Patient Education 2022 [employer]. Follow Up Care 04/17/2023 09:25:02 With:KAEL JAMES, Anthony Lee, URL Address: [address] [place] [id number] When: Unknown [facility] 08-28-2023 History of Present illness Narrative Images from the original note [...] limited to risks of scarring, darker or resin filterer pigmentary changes, recurrence, incomplete removal and infection. [...] results, 6 months documented in this encounter [facility] 08-24-2023 Evaluation note Encounter Date Diagnosis Assessment [...] use, the patient reduces the risk for [place], CVA, HTN, cardiac dysrhythmias and sudden cardiac [...] retention cyst and frontal sinus mass benign [facility] Other 01-19-2024 Evaluation note* Encounter Date Diagnosis Assessment Notes Treatment Notes Treatment Clinical Notes Jul, Pancreatic mass (ICD-10 - K86.89) MRCP: 4cm mass - 2022 - previously completed EUS bx at [facility] - stable in size from 2021 [facility] Other 01-18-2024 NoteHNO ID: [id number] Author: MARCO A ESQUEDA MD Service: ? Author Type: Physician Type: Progress Notes Filed: 08/04/2023 06:33 Note Text: PATIENT NAME: Pablo Felix DATE: 08/03/2023 PRIMARY CARE PHYSICIAN: Dr. Jamar Fall OTHER PHYSICIANS: Dr. Anthony Scruggs, Dr. Khan, [facility] Cardiology Portions of this encounter note [...] mg 24 hr tablet Take by mouth. Dzkkeivbiocxd-Skrtspve-Capsea (MULTIVITAMIN 50 PLUS) tab Take 1 tablet [...] Radical retropubic prostatectomy and bilateral pelvic lymphadenectomy ([facility]) Poorly differentiated prostatic adenocarcinoma of left prostate. Left base margin positive for neoplasm. Seminal vesicles with no diagnostic abnormality. 2 resected lymph nodes negative for neoplasm. LABS: Hemoglobin (g/dL) Date Value 07/27/2023 11.8 05/08/2018 12.8 Hematocrit (%) Date Value 07/27/2023 34.8 05/08/2018 36.8 WBC (k/uL) Date Value 07/27/2023 6.43 05/08/2018 5.63 Platele (more content not included)...[facility]12-07-2023 Note [facility] Cardiology Clinic Note Chief Complaint: Patient [...] should problems arise Bridger Mulligan MD, MPH, FACC, [facility], [facility] Interventional Cardiology Pager Email: [email or web address] Evaluation note* Encounter Date Diagnosis Assessment [...] ENT since scheduling appt for sinus mass [facility] 10-16-2023 Evaluation note* Encounter Date Diagnosis Assessment Notes [...] malignant neoplasm of bone (ICD-10 - C79.51) [facility] 10-12-2023 History of Present illness Narrative* Christo Howard, ROCHELLE.DRIVER TRAINEE - 04/27/2023 10:00 AM EDT PATIENT NAME: Pablo Felix DATE: 04/27/2023 PRIMARY CARE PHYSICIAN: Dr. Jamar Fall OTHER PHYSICIANS: Dr. Anthony Scruggs, Dr. Khan, [facility] Cardiology Portions of this encounter note [...] mg 24 hr tablet Take by mouth. Gytzydhliueud-Dorudfma-Jpasjn (MULTIVITAMIN 50 PLUS) tab Take 1 tablet [...] Radical retropubic prostatectomy and bilateral pelvic lymphadenectomy ([facility]) Poorly differentiated prostatic adenocarcinoma of left prostate. [...] 04/24/2023 0.12 RADIOLOGY/OTHER STUDIES: 11/05/2021 CT chest/abdomen/pelvis ([facility]) Several sclerotic lesions consistent with metastatic disease. No evidence of visceral organ involvement or lymphadenopathy. 11/05/2021 Bone scan ([facility]) Multifocal osseous metastasis including the left femur at the lesser trochanter, right pubis symphysis, multiple ribs bilaterally. 01/22/2018 Nuclear bone scan ([facility]) New focal increased activity left frontal bone, left T8 vertebral body. 01/22/2018 MRI pelvis ([facility]) 4.5 cm area of T2 signal in the prostate bed. 07/24/2014 CT abdomen/pelvis ([facility]) Diffuse prostatic enlargement with indentation of the bladder base. Incidental 2.5 x 1 cm exophytic hypodense lesion adjacent to the pancreatic body. ASSESSMENT/PLAN: 1. Metastatic prostate cancer (HCC) - ICD9: 185, ICD10: C61 (primary diagnosis) The patient was diagnosed with early-stage high-grade prostate cancer in June 2014 (TRUS [id number]/02/2014). He underwent a radical prostatectomy on 11/05/2014. [...] suppressed at <12. Bone scan obtained at [facility] 11/05/2021 revealed multiple bone metastases. CT scans [...] 414.01, ICD10: I25.10 Status post CABG 08/17/2014 ([facility]). Stable on current medications. Continue per [...] which included preparing to see the patient, yzvm-ly-lnkm patient care, completing clinical documentation, obtaining and/or reviewing separately obtained history, performing a medically appropriate examination, counseling and educating the pat ient/family/caregiver, ordering medications, tests, or procedures, independently interpreting results (not separately reported), and communicating results to the patient/family/caregiver. [facility] NoteHNO ID: [id number] Author: Christo Howard APRN.CNP Service: ? Author Type: Nurse Practitioner Type: Progress Notes Filed: 04/27/2023 11:16 AM Note Text: PATIENT NAME: Pablo Felix DATE: 04/27/2023 PRIMARY CARE PHYSICIAN: Dr. Jamar Fall OTHER PHYSICIANS: Dr. Anthony Scruggs, Dr. Khan, [facility] Cardiology Portions of this encounter note [...] mg 24 hr tablet Take by mouth. Usqondykvsgun-Cusambur-Yigalg (MULTIVITAMIN 50 PLUS) tab Take 1 tablet [...] Radical retropubic prostatectomy and bilateral pelvic lymphadenectomy ([facility]) Poorly differentiated prostatic adenocarcinoma of left prostate. [...] 05/08/2018 168 PSA 01/22/20 (more content not included)...[facility]10-03-[facility] Evaluation note* Encounter Date Diagnosis Assessment Notes Treatment Notes Treatment Clinical Notes Apr, Pancreatic mass (ICD-10 - K86.89) [facility] Other [id number] Hospital Discharge instructions Patient Education 04/17/2023 09:18:19 [...] under a microscope. This is called the Burlington score and the total score can range from 6 10, indicating how likely it is that the cancer will spread (metastasize) to other parts of the body. The higher the score, the greater thelikelihood that the cancer will spread. Lucrecia 6 or lower: This indicates that the cancer cells look similar to normal prostate cells (well differentiated). Lucrecia 7: This indicates that the cancer cells look somewhat similar to normal prostate cells (moderately differentiated). Burlington 8, 9, or 10: This indicates that [...] stress of having cancer. General instructions Take ayww-jfl-xbhdbrh and prescription medicines only as told by your health care provider. If you have to go to the hospital, notify your cancer specialist (oncologist). Keep all follow-up visits. This is important. Where to find more information [employer]: www.cancer.org [place] [employer] of Clinical Oncology: www.cancer.net National Cancer [place]: www.cancer.gov Contact a health care provider if: [...] provider. Document Revised: 09/29/2021 Document Reviewed: 09/29/2021 [employer] Patient Education 2022 [employer]. Follow Up Care 10/28/2022 08:37:57 With:KAEL JAMES, Anthony Lee, URL Address: [facility] [address] , [place] [phone] When: Unknown Comments:6 mos w/ PSA (and possible Lupron) [facility] 09-27-2023 Evaluation note* Encounter Date Diagnosis Assessment Notes Treatment Notes Treatment Clinical Notes Mar, Pancreatic mass (ICD-10 - K86.89) [employer] [facility] Other 09-20-2023 Evaluation note* Encounter Date Diagnosis Assessment Notes Treatment Notes Treatment Clinical Notes Mar, Right upper quadrant abdominal pain (ICD-10 - R10.11) Diet instructions Lab to r/o acute infection, cholecystitis, pancreatitis GBUS vs CT abd based on results BLand, low fat diet Mar, Nausea (ICD-10 - R11.0) [place] , small/frequent feedings. Pepcid, Prilosec, Tums as [...] Microalbumin, Dilated eye exam and Foot exam [facility] 08-30-2023 Evaluation note* Encounter Date Diagnosis [...] use, the patient reduces the risk for [place], CVA, HTN, cardiac dysrhythmias and sudden cardiac [...] exercise for 30 minutes, 3-5 times weekly. [facility] Other 07-23-2023 Evaluation note* Encounter Date Diagnosis Assessment Notes Treatment Notes Treatment Clinical Notes Jan, Left bundle-branch block, unspecified (ICD-10 - I44.7) [facility] Other 07-20-2023 History of Present illness Narrative* Marco A Esqueda MD - 02/02/2023 7:38 AM EDT PATIENT NAME: Pablo Felix DATE: 02/02/2023 PRIMARY CARE PHYSICIAN: Dr. Jamar Fall OTHER PHYSICIANS: Dr. Anthony Scruggs, Dr. Khan, [facility] Cardiology Portions of this encounter note [...] mg 24 hr tablet Take by mouth. Nabyoecplmkse-Tfdoqeaa-Jovltp (MULTIVITAMIN 50 PLUS) tab Take 1 tablet [...] Radical retropubic prostatectomy and bilateral pelvic lymphadenectomy ([facility]) Poorly differentiated prostatic adenocarcinoma of left prostate. [...] 10/25/2022 0.13 RADIOLOGY/OTHER STUDIES: 11/05/2021 CT chest/abdomen/pelvis ([facility]) Several sclerotic lesions consistent with metastatic disease. No evidence of visceral organ involvement or lymphadenopathy. 11/05/2021 Bone scan ([facility]) Multifocal osseous metastasis including the left femur at the lesser trochanter, right pubis symphysis, multiple ribs bilaterally. 01/22/2018 Nuclear bone scan ([facility]) New focal increased activity left frontal bone, left T8 vertebral body. 01/22/2018 MRI pelvis ([facility]) 4.5 cm area of T2 signal in the prostate bed. 07/24/2014 CT abdomen/pelvis ([facility]) Diffuse prostatic enlargement with indentation of the bladder base. Incidental 2.5 x 1 cm exophytic hypodense lesion adjacent to the pancreatic body. ASSESSMENT/PLAN: 1. Metastatic prostate cancer (HCC) - ICD9: 185, ICD10: C61 (primary diagnosis) The patient was diagnosed with early-stage high-grade prostate cancer in June 2014 (TRUS [id number]/02/2014). He underwent a radical prostatectomy on 11/05/2014. [...] suppressed at <12. Bone scan obtained at [facility] 11/05/2021 revealed multiple bone metastases. CT scans [...] 414.01, ICD10: I25.10 Status post CABG 08/17/2014 ([facility]). Stable on current medications. Continue per [...] CC: Dr. Anthony Scruggs documented in this encounterF[facility]04-27-[facility] History of Present illness Narrative* Chirsto Howard APRN.DRIVER TRAINEE - 11/10/2022 10:00 AM EDT PATIENT NAME: Pablo Felix DATE: 11/10/2022 PRIMARY CARE PHYSICIAN: Dr. Jamar Fall OTHER PHYSICIANS: Dr. Anthony Scruggs, Dr. Khan, [facility] Cardiology Portions of this encounter note have been copied from MarcoA Esqueda MD note from 08/11/2022 and has [...] mg 24 hr tablet Take by mouth. Uvnaezqkaxfhk-Qtsfcsnc-Ojybwr (MULTIVITAMIN 50 PLUS) tab Take 1 tablet [...] Radical retropubic prostatectomy and bilateral pelvic lymphadenectomy ([facility]) Poorly differentiated prostatic adenocarcinoma of left prostate. [...] PSA 0.13 RADIOLOGY/OTHER STUDIES: 11/05/2021 CT chest/abdomen/pelvis ([facility]) Several sclerotic lesions consistent with metastatic disease. No evidence of visceral organ involvement or lymphadenopathy. 11/05/2021 Bone scan ([facility]) Multifocal osseous metastasis including the left femur at the lesser trochanter, right pubis symphysis, multiple ribs bilaterally. 01/22/2018 Nuclear bone scan ([facility]) New focal increased activity left frontal bone, left T8 vertebral body. 01/22/2018 MRI pelvis ([facility]) 4.5 cm area of T2 signal in the prostate bed. 07/24/2014 CT abdomen/pelvis ([facility]) Diffuse prostatic enlargement with indentation of the bladder base. Incidental 2.5 x 1 cm exophytic hypodense lesion adjacent to the pancreatic body. ASSESSMENT/PLAN: 1. Metastatic prostate cancer (HCC) - ICD9: 185, ICD10: C61 (primary diagnosis) The patient was diagnosed with early-stage high-grade prostate cancer in June 2014 (TRUS [id number]/02/2014). He underwent a radical prostatectomy on 11/05/2014. [...] suppressed at <12. Bone scan obtained at [facility] 11/05/2021 revealed multiple bone metastases. CT scans [...] 414.01, ICD10: I25.10 Status post CABG 08/17/2014 ([facility]). Stable on current medications. Continue per [...] which included preparing to see the patient, isjl-os-eoqp patient care, completing clinical documentation, obtaining and/or reviewing separately obtained history, performing a medically appropriate examination, counseling and educating the pat ient/family/caregiver, ordering medications, tests, or procedures, independently interpreting results (not separately reported), and communicating results to the patient/family/caregiver. documented in this encounterFayette [facility]03-03-2023 Evaluation note* Encounter Date Diagnosis Assessment [...] injection w/ Kenalog, may increase BS slightly [facility] 02-24-2023 Evaluation note* Encounter Date Diagnosis [...] use, the patient reduces the risk for [place], CVA, HTN, cardiac dysrhythmias and sudden cardiac [...] Lupron along w/ additional oral chemotherapy from [facility] Oncology. Also receiving Boniva Aug, Other [...] reviewed and amended by provider signed below. [facility] Other 01-26-2023 History of Present illness Narrative* Marco A Esqueda MD - 08/11/2022 7:42 AM EST PATIENT NAME: Pablo Felix DATE: 08/11/2022 PRIMARY CARE PHYSICIAN: Dr. Jamar Fall OTHER PHYSICIANS: Dr. Anthony Scruggs, Dr. Khan, [facility] Cardiology Portions of this encounter note [...] mg 24 hr tablet Take by mouth. Xexjzoxjomync-Iyqfajvq-Yzkirp (MULTIVITAMIN 50 PLUS) tab Take 1 tablet [...] Radical retropubic prostatectomy and bilateral pelvic lymphadenectomy ([facility]) Poorly differentiated prostatic adenocarcinoma of left prostate. [...] 08/11/2022 PSA RADIOLOGY/OTHER STUDIES: 11/05/2021 CT chest/abdomen/pelvis ([facility]) Several sclerotic lesions consistent with metastatic disease. No evidence of visceral organ involvement or lymphadenopathy. 11/05/2021 Bone scan ([facility]) Multifocal osseous metastasis including the left femur at the lesser trochanter, right pubis symphysis, multiple ribs bilaterally. 01/22/2018 Nuclear bone scan ([facility]) New focal increased activity left frontal bone, left T8 vertebral body. 01/22/2018 MRI pelvis ([facility]) 4.5 cm area of T2 signal in the prostate bed. 07/24/2014 CT abdomen/pelvis ([facility]) Diffuse prostatic enlargement with indentation of the bladder base. Incidental 2.5 x 1 cm exophytic hypodense lesion adjacent to the pancreatic body. ASSESSMENT/PLAN: 1. Metastatic prostate cancer (HCC) - ICD9: 185, ICD10: C61 (primary diagnosis) The patient was diagnosed with early-stage high-grade prostate cancer in June 2014 (TRUS [id number]/02/2014). He underwent a radical prostatectomy on 11/05/2014. [...] suppressed at <12. Bone scan obtained at [facility] 11/05/2021 revealed multiple bone metastases. CT scans [...] 414.01, ICD10: I25.10 Status post CABG 08/17/2014 ([facility]). Stable on current medications. Continue per [...] CC: Dr. Anthony Scruggs documented in this encounterFayette County [facility] Hospital01-05-2023 NotePROCEDURE: XR SHOULDER LT 2V or [...] Electronically authenticated by: CYNTHIA TORRES Date: 2022-07-21 15:46[facility]01-05-2023 Evaluation note* Encounter Date Diagnosis Assessment Notes Treatment Notes Treatment Clinical Notes Jul, Cervical spondylosis with radiculopathy (ICD-10 - M47.22) ROM exercises, heat/ice and Tylenol 1000mg tid. Initiated Tramadol w/ caution, no driving, may cause sedation. Jul, Acute pain of left shoulder (ICD-10 - M25.512) ROM exercises, Tylenol and Tramadol as needed. Jul, Annual physical exam (ICD-10 - Z00.00) [facility] 10-28-2022 Hospital Discharge instructions Patient Education [...] who: Are older than age 65. Are -Burmese. Are obese. Have a family history of [...] cells. Follow these instructions at home: Take qahs-uva-cjfuwkj and prescription medicines only as told by [...] 07/03/2006 Document Revised: 06/15/2018 Document Reviewed: 03/13/2017 [employer] Patient Education LLUSTRE. Follow Up Care 11/08/2021 14:14:20 With:KAEL JAMES, Anthony Lee, URL Address: [address] [place] [address]- When: Unknown [facility] 10-27-2022 Nurse Note* Sheela Toney - 05/12/2022 10:43 AM EDT AUA=2 documented in this encounterFayette County Memorial Hospital10-27-2022 History of Present illness Narrative* Zach Khan MD - 05/12/2022 10:41 AM EDT Radiation Oncology - Follow Up Note PATIENT NAME: Pablo Felix PATIENT DIAGNOSIS: Prostate adenocarcinoma, initial clinical stage II, initial PSA 1.07, biopsy Lucrecia score 9(4,5), s/p prostatectomy for 11/05/14 pathologic stage IIIC [id number], [place] 9 (5, 4) now with rising PSA [...] Each once daily. To test blood sugar Bggavyqnkuuvo-Yctqfuiq-Jciwou (MULTIVITAMIN 50 PLUS) tab Take 1 tablet [...] clinical stage II, initial PSA 1.07, biopsy [place] score 9(4,5), s/p prostatectomy for 11/05/14 pathologic stage IIIC [id number], Lucrecia 9 (5, 4) withrising PSA, subsequently [...] Zach Khan MD cc: Jamar Fall MD ([facility]) Portions of the above note extracted and edited from previous visit as well as active information included in the EMR. documented in this encounterFayette County Memorial Hospital10-17-2022 Miscellaneous Notes* Telephone Encounter - Sheela Toney - 05/02/2022 10:48 AM EDT Patient coming in on 05/12/22 for follow up with labs. Please add lab orders. Thanks, Sheela Toney MA documented in this encounterFayette County Memorial Hospital08-04-2022 History of Present illness Narrative* Marco A Esqueda MD - 02/17/2022 7:51 AM EDT PATIENT NAME: Pablo Felix DATE: 02/17/2022 PRIMARY CARE PHYSICIAN: Jamar Fall, OTHER PHYSICIANS: Dr. Anthony Scruggs, Dr. Khan, [facility] Cardiology Portions of this encounter note [...] Each once daily. To test blood sugar Tibwlpajpvegj-Jaeeykxp-Ypzhve (MULTIVITAMIN 50 PLUS) tab Take 1 tablet [...] Radical retropubic prostatectomy and bilateral pelvic lymphadenectomy ([facility]) Poorly differentiated prostatic adenocarcinoma of left prostate. [...] PSA 0.14 RADIOLOGY/OTHER STUDIES: 11/05/2021 CT chest/abdomen/pelvis ([facility]) Several sclerotic lesions consistent with metastatic disease. No evidence of visceral organ involvement or lymphadenopathy. 11/05/2021 Bone scan ([facility]) Multifocal osseous metastasis including the left femur at the lesser trochanter, right pubis symphysis, multiple ribs bilaterally. 01/22/2018 Nuclear bone scan ([facility]) New focal increased activity left frontal bone, left T8 vertebral body. 01/22/2018 MRI pelvis ([facility]) 4.5 cm area of T2 signal in the prostate bed. 07/24/2014 CT abdomen/pelvis ([facility]) Diffuse prostatic enlargement with indentation of the bladder base. Incidental 2.5 x 1 cm exophytic hypodense lesion adjacent to the pancreatic body. ASSESSMENT/PLAN: 1. Metastatic prostate cancer (HCC) - ICD9: 185, ICD10: C61 (primary diagnosis) The patient was diagnosed with early-stage high-grade prostate cancer in June 2014 (TRUS [id number]/02/2014). He underwent a radical prostatectomy on 11/05/2014. [...] at <12. Staging scans were obtained at [facility] on 11/05/2021. 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 Stable on current medications. Continue per [...] CC: Dr. Anthony Scruggs documented in this encounterFayette County Memorial Hospital05-23-2022 Miscellaneous Notes* Telephone Encounter - Clementine [...] that he has the phone number to [facility]. No additional questionsnoted. Clementine Aguilar RN documented in this encounterFayette County Memorial Hospital04-28-2022 History of Present illness Narrative* Marco A Esqueda MD - 11/11/2021 7:42 AM EDT PATIENT NAME: Pablo Felix DATE: 11/11/2021 PRIMARY CARE PHYSICIAN: Jamar Fall DO OTHER PHYSICIANS: Dr. Anthony Scruggs, Dr. Khan, [facility] Cardiology Portions of this encounter note have been copied from my note from 10/28/2021 and has been updated where appropriate, and reflect my current medical decision making from today. CC: This is a 76 year old male with recently diagnosed metastatic prostate cancer, seen for scheduled follow-up. INTERIM HISTORY: Since the patient's initial visit here he underwent staging scans at [facility] on 11/05/2021. Bone scan revealed multiple areas [...] Each once daily. 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 [...] PSA 2.64 RADIOLOGY/OTHER STUDIES: 11/05/2021 CT chest/abdomen/pelvis ([facility]) Several sclerotic lesions consistent with metastatic disease. No evidence of visceral organ involvement or lymphadenopathy. 11/05/2021 Bone scan ([facility]) Multifocal osseous metastasis including the left femur at the lesser trochanter, right pubis symphysis, multiple ribs bilaterally. 01/22/2018 Nuclear bone scan ([facility]) New focal increased activity left frontal bone, left T8 vertebral body. 01/22/2018 MRI pelvis ([facility]) 4.5 cm area of T2 signal in the prostate bed. 07/24/2014 CT abdomen/pelvis ([facility]) Diffuse prostatic enlargement with indentation of the bladder base. Incidental 2.5 x 1 cm exophytic hypodense lesion adjacent to the pancreatic body. ASSESSMENT/PLAN: 1. Metastatic prostate cancer (HCC) - ICD9: 185, ICD10: C61 (primary diagnosis) The patient was diagnosed with early-stage high-grade prostate cancer in June 2014 (TRUS [id number]/02/2014). He underwent a radical prostatectomy on 11/05/2014. [...] at <12. Staging scans were obtained at [facility] on 11/05/2021. 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 Stable on current medications. Continue per [...] CC: Dr. Anthony Scruggs documented in this encounterFayette County Memorial Hospital04-27-2022 Miscellaneous Notes* Telephone Encounter - Clementine Aguilar RN - 11/10/2021 3:03 PM EDT Pt reports his Enzalutamide was delivered. Will start this evening. Clementine Aguilar RN documented in this encounterFayette County Memorial Hospital04-26-2022 Miscellaneous Notes* Telephone Encounter - Clementine Aguilar RN - 11/09/2021 2:31 PM EDT Per pt, his Enzalutamide is scheduled to arrive tomorrow morning. Patient started/will start taking Enzalutamide on 11/10/21. Clementine Aguilar RN documented in this encounterFayette County Memorial Hospital04-25-2022 Hospital Discharge instructions Patient Education 11/08/2021 [...] who: Are older than age 65. Are -Burmese. Are obese. Have a family history of [...] cells. Follow these instructions at home: Take fzyl-ybd-truoprz and prescription medicines only as told by [...] 07/03/2006 Document Revised: 06/15/2018 Document Reviewed: 03/13/2017 [employer] Patient Education 2020 [employer]. Follow Up Care 08/23/2021 13:26:07 With:KAEL JAMES, Anthony Lee, URL Address: [facility] [address] [place] [address]- [phone] When:05/10/2022 [facility] 04-21-2022 Miscellaneous Notes* Telephone Encounter - Clementine Aguilar RN - 11/04/2021 2:53 PM EDT Pt would like to get the 4th Covid vaccine when it's due. Dr Esqueda notified and gives the ok to proceed when due. Pt notified and verbalizes understanding. Clementine Aguilar RN documented in this encounterFayette County Memorial Hospital04-21-2022 History of Present illness Narrative* Clementine [...] Information handout: Enzalutamide, Specialty Pharmacy Information : [facility] and Specialty Pharmacy phone numbers: Yes [...] 5 minutes Clementine Aguilar RN * Aida Luo, [facility] - 11/04/2021 2:49 PM EDT Images from the original note were not included. [facility] Department of Pharmacy Oncology Pharmacy Medication [...] Each once daily. To test blood sugar Bekteyaxjrvbg-Nhzgihnd-Atpwgn (MULTIVITAMIN 50 PLUS) tab Take 1 tablet [...] of chemotherapy NA - Followed up with [facility] for delivery of Free Xtandi Readiness [...] patient Rubin Luo RPh documented in this encounterFayette County Memorial Hospital04-21-2022 Miscellaneous Notes* Telephone Encounter - Aida Luo RPh - 11/04/2021 10:54 AM EDT Confirmed with [employer] approval date 11/01/21 and that the specialty pharmacy, [facility], will reach out to Mr Felix 3-5 business days from approval date. If he does not hear from them by 11/10/21 we should call [facility] @ option 2. I informed Mr Felix of this, he has an appt 11/12/21 and said if he has not heard from them by then he will get their phone number from us. Rubin Luo RPh documented in this encounterFayette County Memorial Hospital04-19-2022 Miscellaneous Notes* Telephone Encounter - Jennifer Amaro [...] him know to be expecting this call. [facility] will call patient to set up delivery for all fills. I do not see where he has had chemo education yet. Alba does he need to be set up with you? Thanks Rubin Luo RPh * Telephone Encounter - Andreina Castillo RPh - 11/01/2021 10:55 AM EDT Patient called today. We completed a conference call with [email or web address] support solutions - they were ableto obtain consent and [...] the weekend, but when he returns Monday night he will complete authorization. Rubin Luo RPh * Telephone Encounter - Brina Wang RPh - 10/28/2021 4:13 PM EDT No available funding at this time. We will proceed free drug application through [employer]. Pharmacy to reach out to patient 10/29/2021 to notify. Brina Wang RPh * Telephone Encounter - Brina Wang RPh - 10/28/2021 3:08 PM EDT Ambulatory Pharmacy Prior Authorization Note Provider Intervention Required?: No- Pharmacy completed on your behalf. Drug: Xtandi Cover My Meds Carter: [id number] Determination: Approved Prior Authorization/Case #: [id number] Prior Authorization Expiration: 10/28/2022 Time to PA Submission in CMM: 15 min Time to PA Determination in CMM: Same day Additional Information: Co-Pay $3,111.12 For questions relating to this submission, please contact [facility] at [phone] documented in this encounterFayette County Memorial Hospital04-19-2022 Miscellaneous Notes* Telephone Encounter - Zohra Avila PA-C - 11/02/2021 12:00 PM EDT CBC and CMP orders placed Zohra Avila PA-C * Telephone Encounter - Katie Rosen MA - 11/02/2021 11:57 AM EDT Patient has an appt on 11/11/21. Would you like labs, if so place orders. Katie Rosen MA documented in this encounterFayette County Memorial Hospital04-18-2022 Miscellaneous Notes* Telephone Encounter - Clementine [...] for him on the patient assistance program. RADHA Betancourt documented in this encounterFayette County Memorial Hospital04-14-2022 Miscellaneous Notes* Telephone Encounter - Clementine Aguilar RN - 10/28/2021 1:12 PM EDT Voicemail message received from Sandra @ [facility]. Reports the pt's 1st dose of Lupron was given on 02/12/2018. Dr Esqueda notified. Clementine Aguilar RN * Telephone Encounter - Clementine Aguilar RN - 10/28/2021 12:[address] Esqueda requests that we contact Dr Scruggs' office for pt's Lupron start date. Call placed to [facility]. No answer. Message left requesting call back. Clementine Aguilar RN documented in this encounterFayette County Memorial Hospital04-14-2022 Miscellaneous Notes* Telephone Encounter - Clementine Aguilar RN - 10/28/2021 1:12 PM EDT This encounter was opened in error. [email or web address]@ documented in this encounterFayette County Memorial Hospital04-11-2022 Miscellaneous Notes* Telephone Encounter - Christo Howard APRN.CNP - 10/25/2021 4:05 PM EDT Hold off for now. Christo Howard APRN.ALEXA * Telephone Encounter - Katie Rosen MA - 10/25/2021 11:01 AM EDT If patient needs labs, please sign/place orders for 10/28/21. Thanks. Katie Rosen MA documented in this encounterFayette County Memorial Hospital01-01-2015 Evaluation note* Diagnosis Onset Date Resolution Status ASHD (arteriosclerotic heart disease) acute Cervical spondylosis acute Essential hypertension acute Hypercholesterolemia acute Malignant neoplasm of prostate July 17, 2014 acute Nonrheumatic aortic valve stenosis acute GRADY (obstructive sleep apnea) acute Type 2 diabetes mellitus with hyperglycemia acute [facility] Work Phone: Evaluation + Plan note Future Appointments Appointment Date:05/13/2022 08:45:00 AM Scheduled Provider:Anthony SCRUGGS MD Location:[facility] Appointment Type:URO Office Visit Diagnostic Tests Pending * PSA Total 11/08/21 Future Scheduled Tests Laboratory* Basic Metabolic Panel 09/20/21 [facility] evaluation + Plan note Future Appointments Appointment Date:10/28/2022 08:00:00 AM Scheduled Provider:Anthony SCRUGGS MD Location:[facility] Appointment Type:URO Office Visit Diagnostic Tests Pending * PSA Total 09/14/22 Future Scheduled Tests Laboratory* Basic Metabolic Panel 09/20/21 [facility] evaluation + Plan note Future Appointments Appointment Date:10/20/2023 08:45:00 AM Scheduled Provider:Anthony SCRUGGS MD Location:[facility] Appointment Type:URO Office Visit Diagnostic Tests Pending * PSA Total 04/17/[address] [facility] evaluation + Plan note Future Appointments Appointment Date:04/19/2024 08:00:00 AM Scheduled Provider:Anthony SCRUGGS MD Location:[facility] Appointment Type:URO Office Visit Diagnostic Tests Pending * PSA Total 02/15/24 [facility] evaluation note* Diagnosis OPENED IN ERROR- Primary To allow closing an encounter opened in error (used in SmartSet) [facility] this encounter [facility] Diagnosis Malignant neoplasm of prostate (HCC)- Primary Malignant neoplasm of prostate [facility] Diagnosis Malignant neoplasm of prostate (HCC)- Primary Malignant neoplasm of prostate [facility] Diagnosis Malignant neoplasm of prostate (HCC)- Primary Malignant neoplasm of prostate 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 [facility] Diagnosis Malignant neoplasm of prostate (HCC)- Primary Malignant neoplasm of prostate [facility] Diagnosis Malignant neoplasm of prostate (HCC)- Primary Malignant neoplasm of prostate 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 [facility] Diagnosis Malignant neoplasm of prostate (HCC)- Primary Malignant neoplasm of prostate [facility] Diagnosis Malignant neoplasm of prostate (HCC)- Primary Malignant neoplasm of prostate [facility] Diagnosis Malignant neoplasm of prostate (HCC)- Primary Malignant neoplasm of prostate documented in this encounter [facility] note* Diagnosis Malignant neoplasm of prostate (HCC)- Primary Malignant neoplasm of prostate documented in this encounter [facility] note* Diagnosis Malignant neoplasm of prostate (HCC)- Primary Malignant neoplasm of prostate 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, unspecified vessel or lesion type Essential hypertension Unspecified essential hypertension Type 2 diabetes mellitus without complication, without long-term current use of insulin (HCC) documented in this encounter [facility] noteNo [employer] Other Evaluation note* Diagnosis Malignant neoplasm of prostate (HCC)- Primary Malignant neoplasm of prostate 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, unspecified vessel or lesion type Essential hypertension Unspecified essential hypertension Type 2 diabetes mellitus without complication, without long-term current use of insulin (HCC) documented in this encounter [facility] note* Diagnosis Malignant neoplasm of prostate (HCC)- Primary Malignant neoplasm of prostate documented in this encounter [facility] note* Diagnosis Malignant neoplasm of prostate (HCC)- Primary Malignant neoplasm of prostate documented in this encounter [facility] note* Diagnosis Malignant neoplasm of prostate (HCC)- Primary Malignant neoplasm of prostate 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, unspecified vessel or lesion type Essential hypertension Unspecified essential hypertension Type 2 diabetes mellitus without complication, without long-term current use of insulin (HCC) documented in this encounter [facility] note* Diagnosis Neoplasm of unspecified behavior of bone, soft tissue, and skin Actinic keratosis documented in this encounter [facility] note* Diagnosis Malignant neoplasm of prostate (HCC)- Primary Malignant neoplasm of prostate documented in this encounter [facility] note* Diagnosis Malignant neoplasm of prostate (HCC)- Primary Malignant neoplasm of prostate Essential hypertension Unspecified essential hypertension 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, unspecified vessel or lesion type Type 2 diabetes mellitus without complication, without long-term current use of insulin (HCC) Lesion of skin of right ear Abdominal discomfort Abdominal pain, unspecified site documented in this encounter [facility] note* Diagnosis Onset Date Resolution Status Cervical spondylosis acute Mass of skin of left shoulder acute Primary osteoarthritis, right shoulder acute Shoulder pain, right acute Neck pain noneactive ASHD (arteriosclerotic heart disease) acute Essential hypertension acute Hypercholesterolemia acute Malignant neoplasm of prostate July 17, 2014 acute Nonrheumatic aortic valve stenosis acute GRADY (obstructive sleep apnea) acute Type 2 diabetes mellitus with hyperglycemia acute [facility] Work Phone: Evaluation note* Diagnosis Malignant neoplasm of prostate (HCC)- Primary Malignant neoplasm of prostate [facility]* Diagnosis Malignant neoplasm of prostate (HCC)- Primary Malignant neoplasm of prostate documented in this encounter [facility] general Narrative - Reported* Type Description Date [...] [place] 08/2015 Hospitalization History see surgical hx [place] Risk Other History general Narrative - Reported* Type [...] [place] 08/2015 Hospitalization History see surgical hx [place] Risk Other Hospital course Narrative No data available for this section [facility] progress note No data available for this section [facility] Medications Administered Section Inactive Administered Medications - [...] Family History No Family History Records Found Relationship Condition Age at Onset Recorded Date/T desmond father Unknown Heart disease Unknown Not Specified Unknown Malignant neoplasm Unknown Relationship Condition Age at Onset Recorded Date/T desmond father Unknown Heart disease Unknown mother Unknown Malignant neoplasm Unknown Advance Directives No Advanced Directives Records Found Advance Directive Response Recorded Date/ Time Advance Directives No August 24, 2023 10:26am Reason for Referral Specialty Diagnoses / Procedures Referred By Jeffery choudhury Referred To Contact Diagnoses Actinic keratosis Marysuzette Long Iraj, [employer] [address] [place] [address] Referral ID Status Reason Start Date Expiration Date V isits Requested Visits Authorized [id number] Pending Review 1 1 Reason *FU 06/06 Right fr ontal sinus mass and cerumen impaction Diagnosis 1 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) Diagnosis 2 Impacted cerumen of right ear (H61.21) Referral Organization [facility] Thony lizama Referring Provider First Name Jamar Referring Provider Last Name Juan David Referring Provider Specialty Internal Me dicine Referred Organization [facility] Referred Provider Emelina Louis Referred Address ,[place], [place],[address] Referred Provider Specialty Ear, Nose an d Throat Referral Priority Routine General Notes Incidental finding o n XR of orbits prior to MR of abdomen. He c/o right sided rhinorrhea and congestion. He denies alteration in smell or odor. He denies fever, chills or headache Missy Meadows 05/30/2023 05:46:34 PM >received today, attachments made, notes locked, referral faxed Chief Complaint and Reason for Visit Chief Complaint Amb Documentation disk in neck 3 MONTH CHECK UP Reason for Visit Cervical spondylosis Mass of skin of left shoulder Primary osteoarthritis, right shoulder Shoulder pain, right Neck pain ASHD (arteriosclerotic heart disease) Essential hypertension Hypercholesterolemia Malignant neoplasm of prostate Nonrheumatic aortic valve stenosis GRADY (obstructive sleep apnea) Type 2 diabetes mellitus with hyperglycemia Chief Complaint 4 month follow up Reason for Visit ASHD (arteriosclerot ic heart disease) Cervical spondylosis Essential hypertension Hypercholesterolemia Malignant neoplasm of prostate Nonrheumatic aortic valve stenosis GRADY (obstructive sleep apnea) Type 2 diabetes mellitus with hyperglycemia Additional Source Comments Source Comments (unrecognize d section and content) In the event this informatio n is protected by the Federal Confidentiality of Alcohol and Drug Abuse Patient Records regulations: The Federal rules restrict any use of the information to criminally investigate or prosecute any alcohol or drug abuse patient.[facility] HospitalIn the event this information is protected by the Federal Confidentiality of Alcohol and Drug Abuse Patient Records regulations: The Federal rules restrict any use of the information to criminally investigate or prosecute any alcohol or drug abuse patient.[facility] HospitalIn the event this information is protected by the Federal Confidentiality of Alcohol and Drug Abuse Patient Records regulations: The Federal rules restrict any use of the information to criminally investigate or prosecute any alcohol or drug abuse patient.[facility] HospitalIn the event this information is protected by the Federal Confidentiality of Alcohol and Drug Abuse Patient Records regulations: The Federal rules restrict any use of the information to criminally investigate or prosecute any alcohol or drug abuse patient.[facility] HospitalIn the event this information is protected by the Federal Confidentiality of Alcohol and Drug Abuse Patient Records regulations: The Federal rules restrict any use of the information to criminally investigate or prosecute any alcohol or drug abuse patient.[facility] HospitalIn the event this information is protected by the Federal Confidentiality of Alcohol and Drug Abuse Patient Records regulations: The Federal rules restrict any use of the information to criminally investigate or prosecute any alcohol or drug abuse patient.[facility] HospitalIn the event this information is protected by the Federal Confidentiality of Alcohol and Drug Abuse Patient Records regulations: The Federal rules restrict any use of the information to criminally investigate or prosecute any alcohol or drug abuse patient.[facility] HospitalIn the event this information is protected by the Federal Confidentiality of Alcohol and Drug Abuse Patient Records regulations: The Federal rules restrict any use of the information to criminally investigate or prosecute any alcohol or drug abuse patient.[facility] HospitalIn the event this information is protected by the Federal Confidentiality of Alcohol and Drug Abuse Patient Records regulations: The Federal rules restrict any use of the information to criminally investigate or prosecute any alcohol or drug abuse patient.[facility] HospitalIn the event this information is protected by the Federal Confidentiality of Alcohol and Drug Abuse Patient Records regulations: The Federal rules restrict any use of the information to criminally investigate or prosecute any alcohol or drug abuse patient.[facility] HospitalIn the event this information is protected by the Federal Confidentiality of Alcohol and Drug Abuse Patient Records regulations: The Federal rules restrict any use of the information to criminally investigate or prosecute any alcohol or drug abuse patient.[facility] HospitalIn the event this information is protected by the Federal Confidentiality of Alcohol and Drug Abuse Patient Records regulations: The Federal rules restrict any use of the information to criminally investigate or prosecute any alcohol or drug abuse patient.[facility] HospitalIn the event this information is protected by the Federal Confidentiality of Alcohol and Drug Abuse Patient Records regulations: The Federal rules restrict any use of the information to criminally investigate or prosecute any alcohol or drug abuse patient.[facility] HospitalIn the event this information is protected by the Federal Confidentiality of Alcohol and Drug Abuse Patient Records regulations: The Federal rules restrict any use of the information to criminally investigate or prosecute any alcohol or drug abuse patient.[facility] HospitalIn the event this information is protected by the Federal Confidentiality of Alcohol and Drug Abuse Patient Records regulations: The Federal rules restrict any use of the information to criminally investigate or prosecute any alcohol or drug abuse patient.[facility] HospitalIn the event this information is protected by the Federal Confidentiality of Alcohol and Drug Abuse Patient Records regulations: The Federal rules restrict any use of the information to criminally investigate or prosecute any alcohol or drug abuse patient.[facility] HospitalIn the event this information is protected by the Federal Confidentiality of Alcohol and Drug Abuse Patient Records regulations: The Federal rules restrict any use of the information to criminally investigate or prosecute any alcohol or drug abuse patient.[facility] HospitalIn the event this information is protected by the Federal Confidentiality of Alcohol and Drug Abuse Patient Records regulations: The Federal rules restrict any use of the information to criminally investigate or prosecute any alcohol or drug abuse patient.[facility] HospitalIn the event this information is protected by the Federal Confidentiality of Alcohol and Drug Abuse Patient Records regulations: The Federal rules restrict any use of the information to criminally investigate or prosecute any alcohol or drug abuse patient.[facility] HospitalIn the event this information is protected by the Federal Confidentiality of Alcohol and Drug Abuse Patient Records regulations: The Federal rules restrict any use of the information to criminally investigate or prosecute any alcohol or drug abuse patient.[facility] HospitalIn the event this information is protected by the Federal Confidentiality of Alcohol and Drug Abuse Patient Records regulations: The Federal rules restrict any use of the information to criminally investigate or prosecute any alcohol or drug abuse patient.[facility] HospitalIn the event this information is protected by the Federal Confidentiality of Alcohol and Drug Abuse Patient Records regulations: The Federal rules restrict any use of the information to criminally investigate or prosecute any alcohol or drug abuse patient.[facility] HospitalIn the event this information is protected by the Federal Confidentiality of Alcohol and Drug Abuse Patient Records regulations: The Federal rules restrict any use of the information to criminally investigate or prosecute any alcohol or drug abuse patient.[facility] HospitalIn the event this information is protected by the Federal Confidentiality of Alcohol and Drug Abuse Patient Records regulations: The Federal rules restrict any use of the information to criminally investigate or prosecute any alcohol or drug abuse patient.[facility] HospitalIn the event this information is protected by the Federal Confidentiality of Alcohol and Drug Abuse Patient Records regulations: The Federal rules restrict any use of the information to criminally investigate or prosecute any alcohol or drug abuse patient.[facility] HospitalIn the event this information is protected by the Federal Confidentiality of Alcohol and Drug Abuse Patient Records regulations: The Federal rules restrict any use of the information to criminally investigate or prosecute any alcohol or drug abuse patient.[facility] HospitalIn the event this information is protected by the Federal Confidentiality of Alcohol and Drug Abuse Patient Records regulations: The Federal rules restrict any use of the information to criminally investigate or prosecute any alcohol or drug abuse patient.[facility] HospitalIn the event this information is protected by the Federal Confidentiality of Alcohol and Drug Abuse Patient Records regulations: The Federal rules restrict any use of the information to criminally investigate or prosecute any alcohol or drug abuse patient.[facility] HospitalIn the event this information is protected by the Federal Confidentiality of Alcohol and Drug Abuse Patient Records regulations: The Federal rules restrict any use of the information to criminally investigate or prosecute any alcohol or drug abuse patient.[facility] HospitalIn the event this information is protected by the Federal Confidentiality of Alcohol and Drug Abuse Patient Records regulations: The Federal rules restrict any use of the information to criminally investigate or prosecute any alcohol or drug abuse patient.[facility] HospitalIn the event this information is protected by the Federal Confidentiality of Alcohol and Drug Abuse Patient Records regulations: The Federal rules restrict any use of the information to criminally investigate or prosecute any alcohol or drug abuse patient.[facility] HospitalIn the event this information is protected by the Federal Confidentiality of Alcohol and Drug Abuse Patient Records regulations: The Federal rules restrict any use of the information to criminally investigate or prosecute any alcohol or drug abuse patient.[facility] HospitalIn the event this information is protected by the Federal Confidentiality of Alcohol and Drug Abuse Patient Records regulations: The Federal rules restrict any use of the information to criminally investigate or prosecute any alcohol or drug abuse patient.[facility] Care Teams (unrecognized sec tion and content) Braiding Machine Tender Relationship Specialty Start Date End Date Jamar Fall DO PCP - General Internal Medicine 08/04/14 Braiding Machine Tender Relationship Specialty Start Date End Date Jamar Fall DO PCP - General Internal Medicine 08/04/14 Braiding Machine Tender Relationship Specialty Start Date End Date Jamar Fall DO PCP - General Internal Medicine 08/04/14 Braiding Machine Tender Relationship Specialty Start Date End Date Jamar Fall DO PCP - General Internal Medicine 08/04/14 Marco A Esqueda MD [address] [place] [address] [place] [address] Physician Hematology/Oncology 11/02/21 Christo Howard APRN.[address] [place] [address] Nurse Practitioner Hematology/Oncology 11/02/21 Clementine Aguilar, ANITHA [address] [place] [place] [address] Specialty Packer Dried Beef Hematology/Oncology 11/02/21 Braiding Machine Tender Relationship Specialty Start Date End Date Jamar Fall, DO PCP - General Internal Medicine 08/04/14 Marco A Esqueda MD [address] [place] [address] Physician Hematology/Oncology 11/02/21 Christo Howard, DEPUTY COURT.DRIVER TRAINEE [address] [place] [address] Nurse Practitioner Hematology/Oncology 11/02/21 Clementine Aguilar, ANITHA [address] [place] [address] Specialty Packer Dried Beef Hematology/Oncology 11/02/21 Braiding Machine Tender Relationship Specialty Start Date End Date Jamar Fall, DO PCP - General Internal Medicine 08/04/14 Marco A Esqueda MD [address] [place] [address] Physician Hematology/Oncology 11/02/21 Christo Howard, DEPUTY COURT.DRIVER TRAINEE [address] [place] [address] Nurse Practitioner Hematology/Oncology 11/02/21 Clementine Aguilar, ANITHA [address] [place] [address] Specialty Packer Dried Beef Hematology/Oncology 11/02/21 Braiding Machine Tender Relationship Specialty Start Date End Date Jamar Fall, DO PCP - General Internal Medicine 08/04/14 Marco A Esqueda MD [address] [place] [address] Physician Hematology/Oncology 11/02/21 Christo Howard, DEPUTY COURT.DRIVER TRAINEE [address] [place] [address] Nurse Practitioner Hematology/Oncology 11/02/21 Clementine Aguilar, ANITHA [address] [place] [address] Specialty Packer Dried Beef Hematology/Oncology 11/02/21 Braiding Machine Tender Relationship Specialty Start Date End Date Jamar Fall, DO PCP - General Internal Medicine 08/04/14 Marco A Esqueda MD [address] [place] [address] Physician Hematology/Oncology 11/02/21 Christo Howard, DEPUTY COURT.DRIVER TRAINEE [address] [place] [address] Nurse Practitioner Hematology/Oncology 11/02/21 Clementine Aguilar, RN [address] [place] [address] Specialty Packer Dried Beef Hematology/Oncology 11/02/21 Braiding Machine Tender Relationship Specialty Start Date End Date Jamar Fall DO PCP - General Internal Medicine 08/04/14 Marco A Esqueda MD [address] [place] [address] Physician Hematology/Oncology 11/02/21 Christo Howard, DEPUTY COURT.DRIVER TRAINEE [address] [place] [address] Nurse Practitioner Hematology/Oncology 11/02/21 Clementine Aguilar, RN [address] [place] [address] Specialty Packer Dried Beef Hematology/Oncology 11/02/21 Braiding Machine Tender Relationship Specialty Start Date End Date Jamar Fall, DO PCP - General Internal Medicine 08/04/14 Marco A Esqueda MD [address] [place] [address] Physician Hematology/Oncology 11/02/21 Christo Howard, DEPUTY COURT.DRIVER TRAINEE [address] [place] [address] Nurse Practitioner Hematology/Oncology 11/02/21 Clementine Aguilar, RN [address] [place] [address] Specialty Packer Dried Beef Hematology/Oncology 11/02/21 Braiding Machine Tender Relationship Specialty Start Date End Date Jamar Fall, DO PCP - General Internal Medicine 08/04/14 Marco A Esqueda MD [address] [address] [place] [address] Physician Hematology/Oncology 11/02/21 Christo Howard, DEPUTY COURT.DRIVER TRAINEE [address] [place] [address] Nurse Practitioner Hematology/Oncology 11/02/21 Clementine Aguilar, RN [address] [place] [address] Specialty Packer Dried Beef Hematology/Oncology 11/02/21 Braiding Machine Tender Relationship Specialty Start Date End Date Jamar Fall, DO PCP - General Internal Medicine 08/04/14 Marco A Esqueda MD [address] [place] [address] Physician Hematology/Oncology 11/02/21 Christo Howard, DEPUTY COURT.[facility] [address] [place] [address] Nurse Practitioner Hematology/Oncology 11/02/21 Clementine Aguilar, ANITHA [address] [place] [address] Specialty Packer Dried Beef Hematology/Oncology 11/02/21 Braiding Machine Tender Relationship Specialty Start Date End Date Jamar Fall, DO PCP - General Internal Medicine 08/04/14 Marco A Esqueda MD [address] [place] [address] Physician Hematology/Oncology 11/02/21 Christo Howard, DEPUTY COURT.DRIVER TRAINEE [address] [address] [place] [address] Nurse Practitioner Hematology/Oncology 11/02/21 Clementine Aguilar, ANITHA [address] [place] [address] Specialty Packer Dried Beef Hematology/Oncology 11/02/21 Braiding Machine Tender Relationship Specialty Start Date End Date Jamar Fall, DO PCP - General Internal Medicine 08/04/14 Marco A Esqueda MD [address] [place] [address] Physician Hematology/Oncology 11/02/21 Christo Howard, DEPUTY COURT.[facility] [address] [place] [address] Nurse Practitioner Hematology/Oncology 11/02/21 Clementine Aguilar, ANITHA [address] [place], [place] [address] Specialty Packer Dried Beef Hematology/Oncology 11/02/21 Braiding Machine Tender Relationship Specialty Start Date End Date Jamar Fall DO PCP - General Internal Medicine 08/04/14 Marco A Esqueda MD [address] [address] [place] [address] Physician Hematology/Oncology 11/02/21 Christo Howard, DEPUTY COURT.DRIVER TRAINEE [address] [address] [place] [address] Nurse Practitioner Hematology/Oncology 11/02/21 Clementine Aguilar, RN [address] [address] [place] [address] Specialty Packer Dried Beef Hematology/Oncology 11/02/21 Braiding Machine Tender Relationship Specialty Start Date End Date Jamar Fall DO PCP - General Internal Medicine 08/04/14 Marco A Esqueda MD [address] [address] [place] [address] Physician Hematology/Oncology 11/02/21 Christo Howard, DEPUTY COURT.DRIVER TRAINEE [address] [place] [address] Nurse Practitioner Hematology/Oncology 11/02/21 Clementine Aguilar, ANITHA [address] [place] [address] Specialty Packer Dried Beef Hematology/Oncology 11/02/21 Braiding Machine Tender Relationship Specialty Start Date End Date Jamar Fall DO PCP - General Internal Medicine 08/04/14 Marco A Esqueda MD [address] [address] [place] [address] Physician Hematology/Oncology 11/02/21 Christo Howard, DEPUTY COURT.DRIVER TRAINEE [address] [place] [address] Nurse Practitioner Hematology/Oncology 11/02/21 Clementine Aguilar, ANITHA [address] [place] [address] Specialty Packer Dried Beef Hematology/Oncology 11/02/21 Braiding Machine Tender Relationship Specialty Start Date End Date Jamar Fall DO PCP - General Internal Medicine 08/04/14 Marco A Esqueda MD [address] [place] [address] Physician Hematology/Oncology 11/02/21 Christo Howard, DEPUTY COURT.DRIVER TRAINEE [address] [facility] [address] [place] [address] Nurse Practitioner Hematology/Oncology 11/02/21 Clementine Aguilar, ANITHA [address] [address] [place] [address] Specialty Packer Dried Beef Hematology/Oncology 11/02/21 Braiding Machine Tender Relationship Specialty Start Date End Date Jamar Fall DO PCP - General Internal Medicine 08/04/14 Marco A Esqueda MD [address] [address] [place] [address] Physician Hematology/Oncology 11/02/21 Christo Howard, DEPUTY COURT.DRIVER TRAINEE [address] [address] [place] [address] Nurse Practitioner Hematology/Oncology 11/02/21 Clementine Aguilar, RN [address] [address] [place] [address] Specialty Packer Dried Beef Hematology/Oncology 11/02/21 Braiding Machine Tender Relationship Specialty Start Date End Date Jamar Fall DO PCP - General Internal Medicine 08/04/14 Marco A Esqueda MD [address] [address] [place] [address] Physician Hematology/Oncology 11/02/21 Christo Howard APRN.[facility] [address] [place] [address] Nurse Practitioner Hematology/Oncology 11/02/21 Clementine Aguilar, ANITHA [address] [place] [address] Specialty Packer Dried Beef Hematology/Oncology 11/02/21 Braiding Machine Tender Relationship Specialty Start Date End Date Jamar Fall MD [address] [place] [address] PCP - General Internal Medicine 05/31/23 Braiding Machine Tender Relationship Specialty Start Date End Date Jamar Fall MD [address] [place] [address] PCP - General Internal Medicine 05/31/23 Braiding Machine Tender Relationship Specialty Start Date End Date Jamar Fall DO PCP - General Internal Medicine 08/04/14 Marco A Esqueda MD [address] [place] [address] [place] [address] Physician Hematology/Oncology 11/02/21 Christo Howard, DEPUTY COURT.DRIVER TRAINEE [address] [address] [place] [address] Nurse Practitioner Hematology/Oncology 11/02/21 Clementine Aguilar, ANITHA [address] [address] [place] [address] Specialty Packer Dried Beef Hematology/Oncology 11/02/21 Braiding Machine Tender Relationship Specialty Start Date End Date Jamar Fall DO PCP - General Internal Medicine 08/04/14 Marco A Esqueda MD [address] [place] [address] [place] [address] Physician Hematology/Oncology 11/02/21 Christo Howard, DEPUTY COURT.DRIVER TRAINEE [address] [place] [address] [place] [address] Nurse Practitioner Hematology/Oncology 11/02/21 Clementine Aguilar, ANITHA [address] [address] [place] [address] Specialty Packer Dried Beef Hematology/Oncology 11/02/21 Team Status: Active Member Role Status Dates Jamar Fall DO Primary Care Provider Active Team Status: Active Member Role Status Dates Jamar Fall DO Primary Care Provider Active Start: September 06, 2023 PRIMO Marte Attending Provider Active St art: September 06, 2023 Team Status: Inactive Member Role Status Dates Jamar Fall DO Primary Care Provide r, Attending Provider Active Start: September 12, 2023 End: September 12, 2023 Team Status: Active Member Role Status Dates Jamar Fall DO Primary Care Provide r, Attending Provider Active Start: October 09, 2023 Team Status: Active Member Role Status Dates Jamar Fall DO Primary Care Provide r, Attending Provider Active Start: October 30, 2023 Team Status: Inactive Member Role Status Dates Jamar Flal DO Primary Care Provide r, Attending Provider Active Start: November 23, 2023 End: November 23, 2023 Braiding Machine Tender Relationship Specialty Start Date End Date Jamar Fall DO PCP - General Internal Medicine 08/04/14 Marco A Esqueda MD [address] [place] [place] [address] Physician Hematology/Oncology 11/02/21 Christo Howard, DEPUTY COURT.DRIVER TRAINEE [address] [address] [place] [address] Nurse Practitioner Hematology/Oncology 11/02/21 Clementine Aguilar, ANITHA [address] [place] [address] Specialty Packer Dried Beef Hematology/Oncology 11/02/21 Braiding Machine Tender Relationship Specialty Start Date End Date Jamar Fall DO PCP - General Internal Medicine 08/04/14 Marco A Esqueda MD [address] [address] [place] [address] Physician Hematology/Oncology 11/02/21 Christo Howard, DEPUTY COURT.DRIVER TRAINEE [address] [facility] [place] [address] Nurse Practitioner Hematology/Oncology 11/02/21 Clementine Aguilar, ANITHA [address] [place] [address] Specialty Packer Dried Beef Hematology/Oncology 11/02/21 Team Status: Active Member Role Status Dates Jamar Fall DO Primary Care Provider Active Start: January 25, 2024 SAMAN Collins Attending Provider Active Start: January 25, 2024 Team Status: Inactive Member Role Status Dates Jamar Fall DO Primary Care Provide r, Attending Provider Active Start: March 26, 2024 End: March 26, 2024 Braiding Machine Tender Relationship Specialty Start Date End Date Jamar Fall DO PCP - General Internal Medicine 08/04/14 Marco A Esqueda MD [address] [address] [place] [address] Physician Hematology/Oncology 11/02/21 Christo Howard, DEPUTY COURT.DRIVER TRAINEE [address] [address] [place] [address] Nurse Practitioner Hematology/Oncology 11/02/21 Clementine Aguilar, ANITHA [address] [facility] [place] [address] Specialty Packer Dried Beef Hematology/Oncology 11/02/21 Braiding Machine Tender Relationship Specialty Start Date End Date Jamar Fall DO PCP - General Internal Medicine 08/04/14 Marco A Esqueda MD [address] [facility] [address] [place] [address] Physician Hematology/Oncology 11/02/21 Christo Howard, DEPUTY COURT.DRIVER TRAINEE [address] [facility] [place] [address] Nurse Practitioner Hematology/Oncology 11/02/21 Clementine Aguilar, ANITHA [address] [facility] [place] [address] Specialty Packer Dried Beef Hematology/Oncology 11/02/21 Reason for Visit (unrecogniz ed section and [...] up Specialty Diagnoses / Procedures [facility] Referred To Contact Diagnoses Malignant neoplasm of prostate (HCC) Procedures DENOSUMAB INJECTION Marco A Esqueda MD [address] [place] [address] Himanshu Treat [facility] [address] [place] [address] Referral ID Status Reason Start Date Expiration Date V isits Requested Visits Authorized [id number] Authorized 11/11/2021 07/16/2022 99 99 Reason Comments Care Coordination Refill Question Reason Comments Prostate Cancer 1 month follow up Reason Comments Prostate Cancer Follow up Reason Comments Prostate Cancer 3 month follow up Reason Comments Prostate Cancer Reason Comments Prostate Cancer Follow up Reason Comments Suspicious Skin Lesion Specialty Diagnoses / Procedures Referred By [facility] Referred To Contact Dermatology Diagnoses lesion of skin of R ear Marco A Esqueda MD [address] [place] [address] Lety Holguin MD [address] [place] [address] Referral ID Status Reason Start Date Expiration Date Visits Re quested Visits Authorized [id number] Closed 08/04/2023 01/31/2024 1 1 Reason Comments Prostate Cancer 3 month follow up Established Patient Reason Comments Refill Request Reason Onset Date Comments Refill Request 04/01/2024 (unrecognized sect ion and content) No Status Records FoundNo Status Records FoundNo Status Records FoundNo Status Records FoundNo Status Records Found INFORMATION SOURCE (unrecogn ized section and content) DATE CREATED AUTHOR 10/31/2022 [facility] DATE CREATED AUTHOR AUTHOR'S ORGANIZ ATION 11/08/2023 [facility] DATE CREATED AUTHOR AUTHOR'S ORGANIZ ATION 02/06/2024 [facility] DATE CREATED AUTHOR AUTHOR'S ORGANIZ ATION 03/02/2024 [facility] DATE CREATED AUTHOR AUTHOR'S ORGANIZ ATION 04/02/2024 [facility] Inactive Administered Medications - up to 3 most recent administrations Administered Medications (un recognized section and content) Medication Order MAR Action Action Date Dose Rate Site denosumab 120 mg injection (XGEVA) 120 mg, SUBCUTANEOUS, ONCE, 1 dose, On Lee Ann 11/02/23 at 1000, REFRIGERATE Given 11/02/2023 9:50 AM EDT 120 mg Arm, Left Goals (unrecognized section and content) Goals may be documented in a n alternate section FOR RECORDS PERTAINING TO PATIENTS WHO ARE [...] BE BASED ON THE PRIMARY CLINICAL RECORDS. [employer] [facility]. provides no warranty or guarantee of the accuracy or completeness of information in this document.
[2024-04-12 13:28] LABS: Prostate Specific Antigen Dx 0.23 ng/mL (<=4.00)
== END 2024-04-12 11:07 | disposition home or self-care (01) ==
LOC: LAB 11:06
PROVIDERS: PCP Internal Medicine; Visit Provider Urology
DX: C61 Malignant neoplasm of prostate (principal); R97.21 Rising PSA following treatment for malignant neoplasm of prostate
CPT/HCPCS: 36415; 84153

== ENCOUNTER 2024-04-22 11:55 | Day surgery (SDC) | payer MEDICARE, OTHER, SELFPAY ==
[2024-04-22 12:05] VITALS: BP 156/51; PULSE 54; TEMP 36.1; O2SAT 99; BMI 32.2
--- OUTSIDE RECORDS SUMMARY | 2024-04-22 12:14 | XMS_ITS | CCD ---
Author Organization [facility] Care Team Providers Care Mechatronics Technician Name Role Phone Jamar Fall DO Primary Care Provider Marco A Esqueda MD R Unavailable [facility] [employer].ALEXA, Christo Unavailable Lauren WELSH, Clementine Unavailable JAMAR FALL Primary Care Physician Jamar Fall DO Primary Care Provider Marco A Esqueda MD R Unavailable [phone] [facility] [employer].Cary LIUy Unavailable [phone] Lauren WELSH, Clementine Unavailable [phone] Jamar Fall DO Primary Care Provider Dheeraj JAMES, Marco A R Unavailable [facility] [employer].Cary LIUy Unavailable Lauren WELSH, Clementine Unavailable Jamar Fall [...] Consulting Unavailable FEDE DE JESUS Consulting Unavailable UMANA LUIZ Consulting Unavailable TAMEKA, LORA Admitting Unavailable TAMEKA, LORA Attending Unavailable JUAN DAVID, DR ALCARAZ Primary Care Unavailable TAMEKA, LORA Consulting Unavailable SCRUGGS ., DR CRUZ Admitting Unavailable SCRUGGS ., DR CRUZ Attending Unavailable JUAN DAVID, DR ALCARAZ Primary Care Unavailable SCRUGGS ., [...] REQUEST, NONE LISTED Consulting Unavaila ble Lauren RN, Clementine Unavailable Juan David JAMES, Jamar Lopez Primary Care Provider Juan David SEGUNDO, Jamar Lopez Primary Care Provider JAMAR FALL Primary Care Unavailable MARCO A ESQUEDA Referring Unavailable JUAN DAVID, JAMAR oLpez Primary Care Unavailable CHRISTO HOWARD Attending Unavailable MARCO A ESQUEDA R Referring Unavailable BALL, JAMAR E Primary Care Unavailable BALL, JAMAR E Primary Care Unavailable MARCO A ESQUEDA Referring Unavailable MARCO A ESQUEDA R Referring Unavailable JUAN DAVID, JAMAR E Primary Care Unavailable MARCO A ESQUEDA R Referring Unavailable BALL, JAMAR Lopez Primary Care Unavailable LYNNE ALARCON Attending Unavailable JUAN DAVID, JAMAR E Primary Care Unavailable DHEERAJ, MARCO A R Referring Unavailable BALL, JAMAR Lopez Primary Care Unavailable CHRISTO HOWARD Attending Unavailable JUAN DAVID, JAMAR E Primary Care Unavailable MARCO A ESQUEDA R Referring Unavailable BALL, JAMAR E Primary Care Unavailable BALL, JAMAR E Primary Care Unavailable DHEERAJ, MARCO A R Referring Unavailable ESQUEDA, MARCO A R Referring Unavailable ESQUEDA, MARCO A R Attending Unavailable JUAN DAVID, JAMAR E Primary Care Unavailable LONG BOO Attending Unavailable MARCO A ESQUEDA Referring Unavailable EMELINA LOUIS Attending Unavailable JUAN DAVID, JAMAR E Referring Unavailable PABLO CHRISTINA Attending Unavailable LONG BOO Attending Unavailable ALEXIA FRANCO Attending Unavailable BRIDGER MULLIGAN Attending Unavailable LORA ENGLISH Attending Unavailable Anthony SCRUGGS Attending Unavailable Anthony SCRUGGS Attending Unavailable Anthony SCRUGGS Attending Unavailable Allergies Allergy Classification Reported Allergen(s) Allergy Type Date of Onset Reaction(s) Facility (18 sources) Penicillins; Translations: [PENICILLINS] Drug Allergy 1 Unknown [facility] (20 sources) Penicillin G; Translations: [penicillin G benzathine] Drug Allergy 1 Unknown (qualifier value) [facility] (18 sources) Penicillins Drug Allergy 5 Unknown [facility] (19 sources) Simvastatin; Translations: [SIMVASTATIN] Drug Allergy 2 Unknown [facility] (1 source) Penicillins Drug allergy (disorder) 5 [facility] Repository (1 source) Penicillin Drug Allergy Unknown [facility] Other (1 source) Allergies Reconciled Propensity to adverse reactions Unknown [facility] Other (1 source) patient allergy list reviewed by nurse or physicia Propensity to adverse reactions 9 Comment:Done [facility] Other (3 sources) Simvastatin Propensity to adverse [...] on above: Take 2 tablets by mo [facility] once daily. Contour Next - (20 [...] sources) Anticholinergic Start: 10-20-2023 ipratropium Nasal 0.06% [place] Refill(s) 0 Start Date: 10/20/23 Status: Ordered [...] Start: 08-17-2021 take 2 tablets by mo ut once daily at mealtime metFORMIN (GLUCOPHAGE) 500 [...] on above: TAKE 2 TABLETS BY MO [facility] ONCE A DAY WITH FOOD Take 1,000 [...] 02-04-2019 take 1 tablet by anupama th every twenty-four hours metoprolol succinate ER (TOPROL [...] by mouth twice daily. Take by mouth. Tzrvdhatkttoc-Wxycbndp-Bjsfx n (MULTIVITAMIN 50 PLUS) tab (20 sources) [...] on above: Take 1 tablet by anupama twice daily. clopidogrel 75 mg oral tablet [...] Coronary arteriosclerosis; Translations: [Atherosclerotic heart disease of havasupai coronary artery without angina pectoris] Onset: 10-10-2014 [...] Test Name Value Interpretation Reference Range Facility Ambulatory Visit Summaryon 1 Ambulatory Visit Summary Ambulatory Visit Summary PABLO FELIX :1945 Visit Date:04/19/2024 Ambulatory Visit Instructions Your Diagnosis Prostate cancer Rising PSA following treatment for malignant neoplasm of prostate Microscopic hematuria Kidney stones Your Care Team Attending Physician - KAEL JAMES, Anthony Lee Primary Care Physician - JAMAR FALL DO This Is Your Medications List Contact prescribing physician if questions or concerns aspirin (aspirin 81 mg oral tablet) atorvastatin (atorvastatin 40 mg Tab) cholecalciferol (Vitamin D3) enzalutamide (Xtandi 80 mg oral tablet) glimepiride hydrochlorothiazide-lisinop ril (hydrochlorothiazide-lisino pril 12.5 mg-20 mg Tab) ipratropium nasal (ipratropium Nasal 0.06% [place]) metformin (metformin 1000 mg oral tablet) metoprolol (metoprolol 25 mg ER Tab) Procedures Performed Carpal tunnel release (2023), External beam radiotherapy (03/30/2018), Cystoscopy (10/20/2015), Radical prostatectomy (11/05/2014), 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 Discharge Vitals Temperature (Temporal Artery) 37 ?C Heart Rate (Peripheral) 64 Respiratory Rate 17 Blood Pressure 129/69 Height 167 cm Height 66 in Weight 98.3 kg Weight 216.26 lb BMI 35.25 What to do next Scheduled Follow-Up Appointments Monday 9:15 AM EDT With: Anthony SCRUGGS MD Where: [facility] [address] [place] [address] [place] [address]- You Need to Schedule the Following Appointments Follow Up with KAEL JAMES, Anthony Lee, URL When: Where: [address] [place] [phone]- Medications What How Much When Instructions Unchanged aspirin (aspirin 81 mg oral tablet) By Mouth Every day Contact prescribing physician if questions or concerns Unchanged atorvastatin (atorvastatin 40 mg Tab) Contact prescribing physician if questions or concerns Unchanged cholecalciferol (Vitamin D3) Contact prescribing physician if questions or concerns Unchanged enzalutamide (Xtandi 80 mg oral tablet) By Mouth Every day Contact prescribing physician if questions or concerns Unchanged glimepiride By Mouth Every day Contact prescribing physician if questions or concerns Unchanged hydrochlorothiazide-lisinop ril (hydrochlorothiazide-lisino pril 12.5 mg-20 mg Tab) 1 Tablets By Mouth Every day Contact prescribing physician if questions or concerns Unchanged ipratropium nasal (ipratropium Nasal 0.06% [place]) Contact prescribing physician if questions or concerns Unchanged metformin (metformin 1000 mg oral tablet) By Mouth 2 times a day Contact prescribing physician if questions or concerns Unchanged metoprolol (metoprolol 25 mg ER Tab) 1 Tablets By Mouth 2 times a day Contact prescribing physician if questions or concerns Medications and Immunizations Administered Given Lupron Depot 45 mg/6 months intramuscular injection, extended release, 45 mg, IntraMuscular. For: Prostate cancer Allergies penicillin G benzathine (Unknown) Problems Ongoing - Any problem that you are currently receiving treatment for. CAD (coronary artery disease) History of kidney stones History of prostate cancer HTN (hypertension) Hyperlipidemia Kidney stones Microscopic hematuria Nocturia Prostate cancer Rising PSA following treatment for malignant neoplasm of prostate Patient Survey You may receive a survey via text or e-mail asking about your office visit. Please share your experience with us by completing your survey. We appreciate your feedback and thank you for choosing us for your care. Education Materials Prostate Cancer The prostate is a small [...] or interrupted flow of urine. ? Trouble st (more content not included)... Normal [facility] Urology Office/Clinic Noteon 04-19-2024 Urology Office/Clinic Note Urology Office/Clinic Note Chief Complaint rising PSA following for malignant neoplasm of prostate HPI Staff 6m PSA and possible Lupron. Previous DX: Rising PSA following Tx for Prostate Cancer, Prostate Cancer, Microscopic Hematuria, Kidney Stones 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 *Xtandi 160mg QD and Xgeva q3m. No Lupron inj given at last encounter. Last saw [facility] oncology 02/02/24. PSA 04/12/24- 0.23 Dysuria: denies Incomplete bladder emptying: denies Hematuria: denies Frequency: denies Urgency: denies Nocturia: 1x Stream: no straining or intermittency Leaking: denies Post void dripping: denies Wearing pads/ Depends: denies Urge incontinence: denies Stress incontinence: denies Incontinence without Sensory Awareness: denies Abdominal pain: denies Flank pain: denies Sexual complaints: denies History of Present Illness Tests reviewed: reviewed UA, PSA, oncology notes. I have reviewed the previous health record [...] See HPI. Physical Exam Vitals & Measurements T: 37 ?C(Temporal Artery) HR: 64(Peripheral) RR: 17 BP: 129/69 HT: 66 in HT: 167 cm WT: 98.3 kg WT: 216.26 lb BMI: 35.25 General Appearance: alert, no distress, well nourished, well developed male. Assessment/Plan 79 yo male here for possible Lupron. T2DM. Pt accompanied by today. 1. Prostate cancer (C61: Malignant neoplasm of prostate) PSA: 10/25/21 - 2.64 05/05/22 - 0.15 10/25/22 - 0.13 02/02/23 - 0.09 04/12/23 - 0.14 04/24/23 - 0.12 07/27/23 - 0.13 10/09/23 - <0.13 10/29/23 - 0.16 01/25/24 - 0.15 04/12/24 - 0.23 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 Lucrecia 9 (5+4), pT2b, N0, Mo. Last Lupron administered 04/2022. Taking Xtandi 160mg qd and Xgeva q3mos. Last seen by [facility] oncology 02/02/24. Plan at that time was to continue Xtandi and Xgeva. Follow up in 3 mos with labs. No urinary concerns. Given increase in PSA administrating Lupron today is strongly recommended. Lupron 45 mgIM injection given today with no complications. Left glute. -Cont following with onc -Follow up in 6 mos w/ PSA and possible Lupron barring PSA 2. Rising PSA following treatment for malignant neoplasm of prostate (R97.21: Rising PSA following treatment for malignant neoplasm of prostate) See #1. 3. Microscopic hematuria (R31.29: Other microscopic hematuria) S/p Cysto 08/21/15. This is chronic. Likely due to radiation. UA today shows trace-intact blood. Denies gross hematuria. 4. Kidney stones (N20.0: Calculus of kidney) KUB 04/21/23 neg for obvious stones. KUB 10/09/23 shows probable punctate calculi over the right renal region. Denies pain or passage of stones since last visit. Follow-up With When Contact Information KAEL JAMES, Anthony Lee, L [address] [place], [place] [id number]- Additional Instructions: 6 mos w/ PSA and possible Lupron barring PSA Patient Education Prostate Cancer I, Olamide Ureña, personally scribed for Dr. Scruggs on 04/19/2024 08:45:45. . Documentation recorded by the scribe, Olamide Ureña, accurately reflects the services(s) I performed and decisions made by me. Authenticated by Dr. Scruggs on 04/19/2024 08:47:03. 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 Medications aspirin 81 mg oral tablet, Oral, Daily atorvastatin 40 mg Tab glimepiride, Oral, Daily hydrochlorothiazide-lisinop ril (more content not included)... Normal [facility] Comment on above: Result Comment: Elec tronically Signed By: KAEL JAMES, Anthony Lee\.br\Date and Time Signed: 04/19/24 08:47 EDT\.br\Electronically Co-Signed By: Olamide Ureña.br\Date and Time Co-Signed: 04/19/24 08:45 EDT Office Visiton 03-29-2024 Follow-up visit [id number] ElviraPablo Lopez 1945 M Date Provider Department Center 03/29/2024 Ag-LORA ENGLISH [facility] Family History Problem Relation Age of Onset Coronary artery disease Father Family Status - Relation Status Age at Father Level of Service:55948 [place] OFFICE/OUTPATIENT ESTABLISHED MOD MDM 30 MIN Normal [facility] CNOVSPon 02-02-2024 CNOVSP Visit (SP) Office (H EMASA) PABLO FELIX ([id number]) 1945 M Date Time Provider Department 02/02/24 11:30 AM LYNNE ALARCON During your visit today, we recorded the following information about you: Temperature Pulse Respiration Blood pressure 97.3 degrees 52/minute 16/minute 137/54 Weight Height 93.7 kg 1.676 m Lynne Alarcon APRN.ANIMAL STUNNER 02/02/2024 11:37 AM Signed PATIENT NAME: Pablo Felix DATE: February 02, 2024 PRIMARY CARE PHYSICIAN: Dr. Jamar Fall OTHER PHYSICIANS: Dr. Anthony Scruggs, Dr. Khan, [facility] Cardiology This note was copied from [...] mg 24 hr tablet Take by mouth. 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 Left base margin positive for neoplasm. Seminal vesicles with no diagnostic abnormality. 2 resected lymph nodes negative for neoplasm. LABS: Hemoglobin (g/dL) Date Va (more content not included)... Normal [facility] Basophils Auto (Bld) [#/Vol] on 01-25-2024 Basophils (Bld) [#/Vol] 0.04 10*3/uL <0.11 [facility] Basophils/100 WBC Auto (Bld) on 01-25-2024 Basophils/100 WBC (Bld) 0.6 % [facility] Blood manual differential co mment interpretation narrativeon 01-25-2024 Manual differential comment [place] (Bld) [Interp] Auto [facility] CBC W Auto Differential pane l (Bld)on 01-25-2024 Basophils (Bld) [#/Vol] 0.04 10*3/uL Normal <0.11 [facility] Comment on above: Order Comment: Speci men Type: BLOOD SPECIMEN Ordering Facility: [facility] Address: [address] [place] [address] Performed By: #### 2 986-8 #### [facility] CLIA [id number] [address] [place] [address] [place] Basophils/100 WBC (Bld) 0.6 % Normal [facility] Comment on above: Order Comment: Speci men Type: BLOOD SPECIMEN Ordering Facility: [facility] Address: [address] [place] [address] Performed By: #### 2 986-8 #### [facility] CLIA [id number] [address] [place] [address] [place] Differential cell count method Nom (Bld) Auto Normal [facility] Comment on above: Order Comment: Speci men Type: BLOOD SPECIMEN Ordering Facility: [facility] Address: [address] [place] [address] Performed By: #### 2 986-8 #### [facility] CLIA [id number] [address] [place] [address] [place] Eosinophils (Bld) [#/Vol] 0.40 10*3/uL Normal <0.46 [facility] Comment on above: Order Comment: Speci men Type: BLOOD SPECIMEN Ordering Facility: [facility] Address: [address] [place] [address] Performed By: #### 2 986-8 #### [facility] CLIA [id number] [address] [place] [address] [place] Eosinophils/100 WBC (Bld) 5.9 % Normal [facility] Comment on above: Order Comment: Speci men Type: BLOOD SPECIMEN Ordering Facility: [facility] Address: [address] [place] [address] Performed By: #### 2 986-8 #### [facility] CLIA [id number] [address] [place] [address] [place] Erythrocyte distribution width (RBC) [Ratio] 12.7 % Normal 11.5-15.0 [facility] Comment on above: Order Comment: Speci men Type: BLOOD SPECIMEN Ordering Facility: [facility] Address: [address] [place] [address] Performed By: #### 2 986-8 #### [facility] CLIA [id number] [address] [place] [address] [place] Hematocrit (Bld) [Volume fraction] 34.6 % Low 39.0-51.0 [facility] Comment on above: Order Comment: Speci men Type: BLOOD SPECIMEN Ordering Facility: [facility] Address: [address] [place] [address] Performed By: #### 2 986-8 #### [facility] CLIA [id number] [address] [place] [address] [place] Hemoglobin (Bld) [Mass/Vol] 11.8 g/dL Low 13.0-17.0 [facility] Comment on above: Order Comment: Speci men Type: BLOOD SPECIMEN Ordering Facility: [facility] Address: [address] [place] [address] Performed By: #### 2 986-8 #### [facility] CLIA [id number] [address] [place] [address] [place] Immature granulocytes (Bld) [#/Vol] 0.07 10*3/uL Normal <0.10 [facility] Comment on above: Order Comment: Speci men Type: BLOOD SPECIMEN Ordering Facility: [facility] Address: [address] [place] [address] Performed By: #### 2 986-8 #### [facility] CLIA [id number] [address] [place] [address] [place] Immature granulocytes/100 WBC (Bld) 1.0 % Normal [facility] Comment on above: Order Comment: Speci men Type: BLOOD SPECIMEN Ordering Facility: [facility] Address: [address] [place] [address] Performed By: #### 2 986-8 #### [facility] CLIA [id number] [address] [place] [address] [place] Lymphocytes (Bld) [#/Vol] 2.16 10*3/uL Normal 1.00-4.00 [facility] Comment on above: Order Comment: Speci men Type: BLOOD SPECIMEN Ordering Facility: [facility] Address: [address] [place] [address] Performed By: #### 2 986-8 #### [facility] CLIA [id number] [address] [place] [address] [place] Lymphocytes/100 WBC (Bld) 31.8 % Normal [facility] Comment on above: Order Comment: Speci men Type: BLOOD SPECIMEN Ordering Facility: [facility] Address: [address] [place] [address] Performed By: #### 2 986-8 #### [facility] CLIA [id number] [address] [place] [address] [place] MCH (RBC) [Entitic mass] 32.2 pg Normal 26.0-34.0 [facility] Comment on above: Order Comment: Speci men Type: BLOOD SPECIMEN Ordering Facility: [facility] Address: [address] [place] [address] Performed By: #### 2 986-8 #### [facility] CLIA [id number] [address] [place] [address] [place] MCHC (RBC) [Mass/Vol] 34.1 g/dL Normal 30.5-36.0 [facility] Comment on above: Order Comment: Speci men Type: BLOOD SPECIMEN Ordering Facility: [facility] Address: [address] [place] [address] Performed By: #### 2 986-8 #### [facility] CLIA [id number] [address] [place] [address] [place] MCV (RBC) [Entitic vol] 94.3 fL Normal 80.0-100.0 [facility] Comment on above: Order Comment: Speci men Type: BLOOD SPECIMEN Ordering Facility: [facility] Address: [address] [place] [address] Performed By: #### 2 986-8 #### [facility] CLIA [id number] [address] [place] [address] [place] Monocytes (Bld) [#/Vol] 0.60 10*3/uL Normal <0.87 [facility] Comment on above: Order Comment: Speci men Type: BLOOD SPECIMEN Ordering Facility: [facility] Address: [address] [place] [address] Performed By: #### 2 986-8 #### [facility] CLIA [id number] [address] [place] [address] [place] Monocytes/100 WBC (Bld) 8.8 % Normal [facility] Comment on above: Order Comment: Speci men Type: BLOOD SPECIMEN Ordering Facility: [facility] Address: [address] [place] [address] Performed By: #### 2 986-8 #### [facility] CLIA [id number] [address] [place] [address] [place] Neutrophils (Bld) [#/Vol] 3.53 10*3/uL Normal 1.45-7.50 [facility] Comment on above: Order Comment: Speci men Type: BLOOD SPECIMEN Ordering Facility: [facility] Address: [address] [place] [address] Performed By: #### 2 986-8 #### [facility] CLIA [id number] [address] [place] [address] [place] Neutrophils/100 WBC (Bld) 51.9 % Normal [facility] Comment on above: Order Comment: Speci men Type: BLOOD SPECIMEN Ordering Facility: [facility] Address: [address] [place] [address] Performed By: #### 2 986-8 #### [facility] CLIA [id number] [address] [place] [address] [place] Nucleated RBC (Bld) [#/Vol] 10*3/uL Normal <0.01 [facility] Comment on above: Order Comment: Speci men Type: BLOOD SPECIMEN Ordering Facility: [facility] Address: [address] [place] [address] Performed By: #### 2 986-8 #### [facility] CLIA [id number] [address] [place] [address] [place] Nucleated RBC/100 WBC (Bld) [Ratio] 0.0 /100 WBC Normal [facility] Comment on above: Order Comment: Speci men Type: BLOOD SPECIMEN Ordering Facility: [facility] Address: [address] [place] [address] Performed By: #### 2 986-8 #### [facility] CLIA [id number] [address] [place] [address] [place] Platelet mean volume (Bld) [Entitic vol] 10.3 fL Normal 9.0-12.7 [facility] Comment on above: Order Comment: Speci men Type: BLOOD SPECIMEN Ordering Facility: [facility] Address: [address] [place] [address] Performed By: #### 2 986-8 #### [facility] CLIA [id number] [address] [place] [address] [place] Platelets (Bld) [#/Vol] 184 10*3/uL Normal 150-400 [facility] Comment on above: Order Comment: Speci men Type: BLOOD SPECIMEN Ordering Facility: [facility] Address: [address] [place] [address] Performed By: #### 2 986-8 #### [facility] CLIA [id number] [address] [place] [address] [place] RBC (Bld) [#/Vol] 3.67 10*6/uL Low 4.20-6.00 [facility] Comment on above: Order Comment: Speci men Type: BLOOD SPECIMEN Ordering Facility: [facility] Address: [address] [place] [address] Performed By: #### 2 986-8 #### [facility] CLIA [id number] [address] [place] [address] [place] WBC (Bld) [#/Vol] 6.80 10*3/uL Normal 3.70-11.00 [facility] Comment on above: Order Comment: Speci men Type: BLOOD SPECIMEN Ordering Facility: [facility] Address: [address] [place] [address] Performed By: #### 2 986-8 #### [facility] CLIA [id number] [address] [place] [address] [place] Comprehensive metabolic 2000 panelon 01-25-2024 Albumin [Mass/Vol] 4.0 g/dL Normal 3.9-4.9 [facility] Comment on above: Order Comment: Speci men Type: BLOOD SPECIMEN Ordering Facility: [facility] Address: [address] [place] [address] Performed By: #### 2 986-8 #### [facility] CLIA [id number] [address] [place] [address] [place] ALP [Catalytic activity/Vol] 74 U/L Normal 38-113 [facility] Comment on above: Order Comment: Speci men Type: BLOOD SPECIMEN Ordering Facility: [facility] Address: [address] [place] [address] Performed By: #### 2 986-8 #### [facility] CLIA [id number] [address] [place] [address] [place] ALT [Catalytic activity/Vol] 18 U/L Normal 10-54 [facility] Comment on above: Order Comment: Speci men Type: BLOOD SPECIMEN Ordering Facility: [facility] Address: [address] [place] [address] Performed By: #### 2 986-8 #### [facility] CLIA [id number] [address] [place] [address] [place] Anion gap [Moles/Vol] 9 mmol/L Normal 8-15 [facility] Comment on above: Order Comment: Speci men Type: BLOOD SPECIMEN Ordering Facility: [facility] Address: [address] [place] [address] Performed By: #### 2 986-8 #### [facility] CLIA [id number] [address] [place] [address] [place] AST [Catalytic activity/Vol] 19 U/L Normal 14-40 [facility] Comment on above: Order Comment: Speci men Type: BLOOD SPECIMEN Ordering Facility: [facility] Address: [address] [place] [address] Performed By: #### 2 986-8 #### [facility] CLIA [id number] [address] [place] [address] [place] Bilirubin [Mass/Vol] 0.7 mg/dL Normal 0.2-1.3 [facility] Comment on above: Order Comment: Speci men Type: BLOOD SPECIMEN Ordering Facility: [facility] Address: [address] [place] [address] Performed By: #### 2 986-8 #### [facility] CLIA [id number] [address] [place] [address] [place] Calcium [Mass/Vol] 9.9 mg/dL Normal 8.5-10.2 [facility] Comment on above: Order Comment: Speci men Type: BLOOD SPECIMEN Ordering Facility: [facility] Address: [address] [place] [address] Performed By: #### 2 986-8 #### [facility] CLIA [id number] [address] [place] [address] [place] Chloride [Moles/Vol] 103 mmol/L Normal 98-107 [facility] Comment on above: Order Comment: Speci men Type: BLOOD SPECIMEN Ordering Facility: [facility] Address: [address] [place] [address] Performed By: #### 2 986-8 #### [facility] CLIA [id number] [address] [place] [address] [place] CO2 [Moles/Vol] 25 mmol/L Normal 22-30 [facility] Comment on above: Order Comment: Speci men Type: BLOOD SPECIMEN Ordering Facility: [facility] Address: [address] [place] [address] Performed By: #### 2 986-8 #### [facility] CLIA [id number] [address] [place] [address] [place] Creatinine [Mass/Vol] 0.79 mg/dL Normal 0.73-1.22 [facility] Comment on above: Order Comment: Speci men Type: BLOOD SPECIMEN Ordering Facility: [facility] Address: [address] [place] [address] Performed By: #### 2 986-8 #### [facility] CLIA [id number] [address] [place] [address] [place] Creatinine and Glomerular filtration rate.predicted panel (S/P/Bld) 91 mL/min/1.73m??? Normal >=60 [facility] Comment on above: Order Comment: Nicanor camilo Type: BLOOD SPECIMEN Ordering Facility: [facility] Address: [address] [place] [address] Result Comment: Renae mated Glomerular Filtration Rate [...] GFR. Performed By: #### 2 986-8 #### [facility] CLIA [id number] [address] [place] [address] [place] Glucose [Mass/Vol] 112 mg/dL High 74-99 [facility] Comment on above: Order Comment: Nicanor camilo Type: BLOOD SPECIMEN Ordering Facility: [facility] Address: [address] [place] [address] Result Comment: The [place] Diabetes Association (ADA) provides guidance for cutoff [...] Standards of Medical Care in Diabetes 2016, [place] [employer]. Diabetes Care. 2016.39(Suppl 1). Performed By: #### 2 986-8 #### [facility] CLIA [id number] [address] [place] [address] [place] Potassium [Moles/Vol] 5.2 mmol/L High 3.7-5.1 [facility] Comment on above: Order Comment: Nicanor camilo Type: BLOOD SPECIMEN Ordering Facility: [facility] Address: [address] [place] [address] Performed By: #### 2 986-8 #### [facility] CLIA [id number] [address] [place] [address] [place] Protein [Mass/Vol] 6.6 g/dL Normal 6.3-8.0 [facility] Comment on above: Order Comment: Speci men Type: BLOOD SPECIMEN Ordering Facility: [facility] Address: [address] [place] [address] Performed By: #### 2 986-8 #### [facility] CLIA [id number] [address] [place] [address] [place] Sodium [Moles/Vol] 137 mmol/L Normal 136-144 [facility] Comment on above: Order Comment: Speci men Type: BLOOD SPECIMEN Ordering Facility: [facility] Address: [address] [place] [address] Performed By: #### 2 986-8 #### [facility] CLIA [id number] [address] [place] [address] [place] Urea nitrogen [Mass/Vol] 15 mg/dL Normal 9-24 [facility] Comment on above: Order Comment: Speci men Type: BLOOD SPECIMEN Ordering Facility: [facility] Address: [address] [place] [address] Performed By: #### 2 986-8 #### [facility] CLIA [id number] [address] [place] [address] [place] Eosinophils/100 WBC Auto (Bl d)on 01-25-2024 Eosinophils/100 WBC (Bld) 5.9 % [facility] Erythrocyte distribution wid th Auto (RBC) [Ratio]on 01-25-2024 Erythrocyte distribution width (RBC) [Ratio] 12.7 % 11.5-15.0 [facility] Hematocrit Auto (Bld) [Volum e fraction]on 01-25-2024 Hematocrit (Bld) [Volume fraction] 34.6 % Low 39.0-51.0 [facility] Hemoglobin [Mass/volume] in Bloodon 01-25-2024 Hemoglobin (Bld) [Mass/Vol] 11.8 g/dL Low 13.0-17.0 [facility] Laboratory - Chemistry and C hemistry - challengeon 01-25-2024 Albumin [Mass/Vol] 4.0 g/dL 3.9-4.9 [facility] ALP [Catalytic activity/Vol] 74 U/L 38-113 [facility] ALT [Catalytic activity/Vol] 18 U/L 10-54 [facility] AST [Catalytic activity/Vol] 19 U/L 14-40 [facility] Bilirubin [Mass/Vol] 0.7 mg/dL 0.2-1.3 [facility] Calcium [Mass/Vol] 9.9 mg/dL 8.5-10.2 [facility] Chloride [Moles/Vol] 103 mmol/L 98-107 [facility] CO2 [Moles/Vol] 25 mmol/L 22-30 [facility] Creatinine [Mass/Vol] 0.79 mg/dL 0.73-1.22 [facility] Glucose [Mass/Vol] 112 mg/dL High 74-99 [facility] Comment on above: The [place] Di[employer] Association (ADA) provides guidance for [...] Standards of Medical Care in Diabetes 2016, [place] [employer]. Diabetes Care. 2016.39(Suppl 1). Potassium [Moles/Vol] 5.2 mmol/L High 3.7-5.1 [facility] Sodium [Moles/Vol] 137 mmol/L 136-144 [facility] Urea nitrogen [Mass/Vol] 15 mg/dL 9-24 [facility] Laboratory - Hematology and Cell countson 01-25-2024 Eosinophils (Bld) [#/Vol] 0.40 10*3/uL <0.46 [facility] Immature granulocytes (Bld) [#/Vol] 0.07 10*3/uL <0.10 [facility] Immature granulocytes/100 WBC (Bld) 1.0 % [facility] Leukocytes [#/volume] correc jomar for nucleated erythrocytes in Blood by Automated counon 01-25-2024 WBC corrected for nucl RBC Auto (Bld) [#/Vol] 6.80 k/uL 3.70-11.00 [facility] Lymphocytes Auto (Bld) [#/Vo l]on 01-25-2024 Lymphocytes (Bld) [#/Vol] 2.16 10*3/uL 1.00-4.00 [facility] Lymphocytes/100 WBC Auto (Bl d)on 01-25-2024 Lymphocytes/100 WBC (Bld) 31.8 % [facility] MCH Auto (RBC) [Entitic mass ]on 01-25-2024 MCH (RBC) [Entitic mass] 32.2 pg 26.0-34.0 [facility] MCHC Auto (RBC) [Mass/Vol]on 01-25-2024 MCHC (RBC) [Mass/Vol] 34.1 g/dL 30.5-36.0 [facility] MCV Auto (RBC) [Entitic vol] on 01-25-2024 MCV (RBC) [Entitic vol] 94.3 fL 80.0-100.0 [facility] Monocytes Auto (Bld) [#/Vol] on 01-25-2024 Monocytes (Bld) [#/Vol] 0.60 10*3/uL <0.87 [facility] Monocytes/100 WBC Auto (Bld) on 01-25-2024 Monocytes/100 WBC (Bld) 8.8 % [facility] Neutrophils Auto (Bld) [#/Vo l]on 01-25-2024 Neutrophils (Bld) [#/Vol] 3.53 10*3/uL 1.45-7.50 [facility] Neutrophils/100 WBC Auto (Bl d)on 01-25-2024 Neutrophils/100 WBC (Bld) 51.9 % [facility] No Panel Informationon 01-24 Estimated GFR (CKD-EPI) 91 mL/min/1.73m??? >=60 [facility] Comment on above: Estimated Glomerular Filtration [...] GFR. Prostate Specific Antigen 0.15 ng/mL <2.60 [facility] Comment on above: Total PSA test metho dology used is the Electrochemiluminescence Immunoassay by [employer]. Total PSA values by differing methodologies cannot be interchanged. Nucleated RBC Auto (Bld) [#/ Vol]on 01-25-2024 Nucleated RBC (Bld) [#/Vol] 10*3/uL <0.01 [facility] Nucleated erythrocytes [Pres ence] in Blood by Automated counton 01-25-2024 Nucleated RBC Auto Ql (Bld) 0.0 /100{WBC} [facility] PSA SerPl-mCncon 01-25-2024 Prostate specific Ag [Mass/Vol] 0.15 ng/mL Normal <2.60 [facility] Comment on above: Order Comment: Speci men Type: BLOOD SPECIMENOrdering Facility: [facility] Address: [address] [place] [address] Result Comment: Tota l PSA test methodology used is the Electrochemiluminescence Immunoassay by [employer]. Total PSA values by differing methodologies cannot be interchanged. Performed By: #### 2 857-1 ####[facility] [id number] [place] [address] [place] Platelet mean volume Auto (B ld) [Entitic vol]on 01-25-2024 Platelet mean volume (Bld) [Entitic vol] 10.3 fL 9.0-12.7 [facility] Platelets Auto (Bld) [#/Vol] on 01-25-2024 Platelets (Bld) [#/Vol] 184 10*3/uL 150-400 [facility] Protein [Mass/volume] in Ser um or Plasmaon 01-25-2024 Protein [Mass/Vol] 6.6 g/dL 6.3-8.0 [facility] RBC Auto (Bld) [#/Vol]on RBC (Bld) [#/Vol] 3.67 10*6/uL Low 4.20-6.00 [facility] Serum or plasma anion gap de terminationon 01-25-2024 Anion gap [Moles/Vol] 9 mmol/L 8-15 [facility] Consultation Noteon 11-07-19 Consultation Note [id number]#1.00TIFF Beulah [facility] CNOVSPon 11-02-2023 CNOVSP Visit (SP) Office (H EMASA) PABLO FELIX ([id number]) 1945 M Date Time Provider Department 11/02/23 9:30 AM CHRISTO HOWARD During your visit today, we recorded the following information about you: Temperature Pulse Respiration Blood pressure 97.8 degrees 56/minute 16/minute 123/44 Weight Height 92.9 kg 1.676 m Christo Howard APRN.ALEXA 11/03/2023 11:11 AM Signed PATIENT NAME: Pablo Felix DATE: 11/02/2023 PRIMARY CARE PHYSICIAN: Dr. Jamar Fall OTHER PHYSICIANS: Dr. Anthony Scruggs, Dr. Khan, [facility] Cardiology Portions of this encounter [...] mg 24 hr tablet Take by mouth. 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 Left base margin positive for neoplasm. Seminal vesicles with no diagnostic abnormality. 2 resected lymph nodes negative for neoplasm. LABS: Hem (more content not included)... Normal [facility] Basophils Auto (Bld) [#/Vol] on 10-30-2023 Basophils (Bld) [#/Vol] 0.04 10*3/uL <0.11 [facility] Basophils/100 WBC Auto (Bld) on 10-30-2023 Basophils/100 WBC (Bld) 0.5 % [facility] Blood manual differential co mment interpretation narrativeon 10-30-2023 Manual differential comment [place] (Bld) [Interp] Auto [facility] CBC W Auto Differential pane l (Bld)on 10-30-2023 Basophils (Bld) [#/Vol] 0.04 10*3/uL Normal <0.11 [facility] Comment on above: Order Comment: Speci men Type: BLOOD SPECIMENOrdering Facility: [facility] Address: [address] [place] [address] Performed By: #### 5 7021-8 ####[facility] [id number] [place] [address] Basophils/100 WBC (Bld) 0.5 % Normal [facility] Comment on above: Order Comment: Speci men Type: BLOOD SPECIMENOrdering Facility: [facility] Address: [address] [place] [address] Performed By: #### 5 7021-8 ####[facility] [id number] [place] [address] Differential cell count method Nom (Bld) Auto Normal [facility] Comment on above: Order Comment: Speci men Type: BLOOD SPECIMENOrdering Facility: [facility] Address: [address] [place] [address] Performed By: #### 5 7021-8 ####[facility] [id number] [place] [address] Eosinophils (Bld) [#/Vol] 0.35 10*3/uL Normal <0.46 [facility] Comment on above: Order Comment: Speci men Type: BLOOD SPECIMENOrdering Facility: [facility] Address: [address] [place] [address] Performed By: #### 5 7021-8 ####[facility] [id number] [place] [address] Eosinophils/100 WBC (Bld) 4.3 % Normal [facility] Comment on above: Order Comment: Speci men Type: BLOOD SPECIMENOrdering Facility: [facility] Address: [address] [place] [address] Performed By: #### 5 7021-8 ####[facility] [id number] [place] [address] Erythrocyte distribution width (RBC) [Ratio] 12.8 % Normal 11.5-15.0 [facility] Comment on above: Order Comment: Speci men Type: BLOOD SPECIMENOrdering Facility: [facility] Address: [address] [place] [address] Performed By: #### 5 7021-8 ####[facility] [id number] [place] [address] Hematocrit (Bld) [Volume fraction] 35.8 % Low 39.0-51.0 [facility] Comment on above: Order Comment: Speci men Type: BLOOD SPECIMENOrdering Facility: [facility] Address: [address] [place] [address] Performed By: #### 5 7021-8 ####[facility] [id number] [place] [address] Hemoglobin (Bld) [Mass/Vol] 12.2 g/dL Low 13.0-17.0 [facility] Comment on above: Order Comment: Speci men Type: BLOOD SPECIMENOrdering Facility: [facility] Address: [address] [place] [address] Performed By: #### 5 7021-8 ####[facility] [id number] [place] [address] Immature granulocytes (Bld) [#/Vol] 0.04 10*3/uL Normal <0.10 [facility] Comment on above: Order Comment: Speci men Type: BLOOD SPECIMENOrdering Facility: [facility] Address: [address] [place] [address] Performed By: #### 5 7021-8 ####[facility] [id number] [place] [address] Immature granulocytes/100 WBC (Bld) 0.5 % Normal [facility] Comment on above: Order Comment: Speci men Type: BLOOD SPECIMENOrdering Facility: [facility] Address: [address] [place] [address] Performed By: #### 5 7021-8 ####[facility]IA [id number] [place] [address] Lymphocytes (Bld) [#/Vol] 1.36 10*3/uL Normal 1.00-4.00 [facility] Comment on above: Order Comment: Speci men Type: BLOOD SPECIMENOrdering Facility: [facility] Address: [address] [place] [address] Performed By: #### 5 7021-8 ####[facility]IA [id number] [place] [address] Lymphocytes/100 WBC (Bld) 16.6 % Normal [facility] Comment on above: Order Comment: Speci men Type: BLOOD SPECIMENOrdering Facility: [facility] Address: [address] [place] [address] Performed By: #### 5 7021-8 ####[facility]IA [id number] [place] [address] MCH (RBC) [Entitic mass] 31.3 pg Normal 26.0-34.0 [facility] Comment on above: Order Comment: Speci men Type: BLOOD SPECIMENOrdering Facility: [facility] Address: [address] [place] [address] Performed By: #### 5 7021-8 ####[facility]IA [id number] [place] [address] MCHC (RBC) [Mass/Vol] 34.1 g/dL Normal 30.5-36.0 [facility] Comment on above: Order Comment: Speci men Type: BLOOD SPECIMENOrdering Facility: [facility] Address: [address] [place] [address] Performed By: #### 5 7021-8 ####[facility]IA [id number] [place] [address] MCV (RBC) [Entitic vol] 91.8 fL Normal 80.0-100.0 [facility] Comment on above: Order Comment: Speci men Type: BLOOD SPECIMENOrdering Facility: [facility] Address: [address] [place] [address] Performed By: #### 5 7021-8 ####[facility]IA [id number] [place] [address] Monocytes (Bld) [#/Vol] 0.62 10*3/uL Normal <0.87 [facility] Comment on above: Order Comment: Speci men Type: BLOOD SPECIMENOrdering Facility: [facility] Address: [address] [place] [address] Performed By: #### 5 7021-8 ####[facility]IA [id number] [place] [address] Monocytes/100 WBC (Bld) 7.6 % Normal [facility] Comment on above: Order Comment: Speci men Type: BLOOD SPECIMENOrdering Facility: [facility] Address: [address] [place] [address] Performed By: #### 5 7021-8 ####[facility]IA [id number] [place] [address] Neutrophils (Bld) [#/Vol] 5.78 10*3/uL Normal 1.45-7.50 [facility] Comment on above: Order Comment: Speci men Type: BLOOD SPECIMENOrdering Facility: [facility] Address: [address] [place] [address] Performed By: #### 5 7021-8 ####[facility]IA [id number] [place] [address] Neutrophils/100 WBC (Bld) 70.5 % Normal [facility] Comment on above: Order Comment: Speci men Type: BLOOD SPECIMENOrdering Facility: [facility] Address: [address] [place] [address] Performed By: #### 5 7021-8 ####[facility]IA [id number] [place] [address] Nucleated RBC (Bld) [#/Vol] 10*3/uL Normal <0.01 [facility] Comment on above: Order Comment: Speci men Type: BLOOD SPECIMENOrdering Facility: [facility] Address: [address] [place] [address] Performed By: #### 5 7021-8 ####[facility]IA [id number] [place] [address] Nucleated RBC/100 WBC (Bld) [Ratio] 0.0 /100 WBC Normal [facility] Comment on above: Order Comment: Speci men Type: BLOOD SPECIMENOrdering Facility: [facility] Address: [address] [place] [address] Performed By: #### 5 7021-8 ####[facility]IA [id number] [place] [address] Platelet mean volume (Bld) [Entitic vol] 9.5 fL Normal 9.0-12.7 [facility] Comment on above: Order Comment: Speci men Type: BLOOD SPECIMENOrdering Facility: [facility] Address: [address] [place] [address] Performed By: #### 5 7021-8 ####[facility]IA [id number] [place] [address] Platelets (Bld) [#/Vol] 192 10*3/uL Normal 150-400 [facility] Comment on above: Order Comment: Speci men Type: BLOOD SPECIMENOrdering Facility: [facility] Address: [address] [place] [address] Performed By: #### 5 7021-8 ####[facility]IA [id number] [place] [address] RBC (Bld) [#/Vol] 3.90 10*6/uL Low 4.20-6.00 [facility] Comment on above: Order Comment: Speci men Type: BLOOD SPECIMENOrdering Facility: [facility] Address: [address] [place] [address] Performed By: #### 5 7021-8 ####[facility]IA [id number] [place] [address] WBC (Bld) [#/Vol] 8.19 10*3/uL Normal 3.70-11.00 [facility] Comment on above: Order Comment: Speci men Type: BLOOD SPECIMENOrdering Facility: [facility] Address: [address] [place] [address] Performed By: #### 5 7021-8 ####[facility]CLIA [id number] [place] [address] Comprehensive metabolic 2000 panelon 10-30-2023 Albumin [Mass/Vol] 4.1 g/dL Normal 3.9-4.9 [facility] Comment on above: Order Comment: Speci men Type: BLOOD SPECIMEN [facility] Address: [address] [place] [address] Performed By: #### 2 986-8 #### [facility] CLIA [id number] [address] [place] [address] [place] ALP [Catalytic activity/Vol] 75 U/L Normal 38-113 [facility] Comment on above: Order Comment: Speci men Type: BLOOD SPECIMEN [facility] Address: [address] [place] [address] Performed By: #### 2 986-8 #### [facility] CLIA [id number] [address] [place] [address] [place] ALT [Catalytic activity/Vol] 16 U/L Normal 10-54 [facility] Comment on above: Order Comment: Speci men Type: BLOOD SPECIMEN [facility] Address: [address] [place] [address] Performed By: #### 2 986-8 #### [facility] CLIA [id number] [address] [place] [address] [place] Anion gap [Moles/Vol] 13 mmol/L Normal 9-18 [facility] Comment on above: Order Comment: Speci men Type: BLOOD SPECIMEN [facility] Address: [address] [place] [address] Performed By: #### 2 986-8 #### [facility] CLIA [id number] [address] [place] [address] [place] AST [Catalytic activity/Vol] 16 U/L Normal 14-40 [facility] Comment on above: Order Comment: Speci men Type: BLOOD SPECIMEN [facility] Address: [address] [place] [address] Performed By: #### 2 986-8 #### [facility] CLIA [id number] [address] [place] [address] [place] Bilirubin [Mass/Vol] 0.7 mg/dL Normal 0.2-1.3 [facility] Comment on above: Order Comment: Speci men Type: BLOOD SPECIMEN [facility] Address: [address] [place] [address] Performed By: #### 2 986-8 #### [facility] CLIA [id number] [address] [place] [address] [place] Calcium [Mass/Vol] 9.8 mg/dL Normal 8.5-10.2 [facility] Comment on above: Order Comment: Speci men Type: BLOOD SPECIMEN [facility] Address: [address] [place] [address] Performed By: #### 2 986-8 #### [facility] CLIA [id number] [address] [place] [address] [place] Chloride [Moles/Vol] 103 mmol/L Normal 97-105 [facility] Comment on above: Order Comment: Speci men Type: BLOOD SPECIMEN [facility] Address: [address] [place] [address] Performed By: #### 2 986-8 #### [facility] CLIA [id number] [address] [place] [address] [place] CO2 [Moles/Vol] 24 mmol/L Normal 22-30 [facility] Comment on above: Order Comment: Speci men Type: BLOOD SPECIMEN [facility] Address: [address] [place] [address] Performed By: #### 2 986-8 #### [facility] CLIA [id number] [address] [place] [address] [place] Creatinine [Mass/Vol] 0.88 mg/dL Normal 0.73-1.22 [facility] Comment on above: Order Comment: Speci men Type: BLOOD SPECIMEN [facility] Address: [address] [place] [address] Performed By: #### 2 986-8 #### [facility] CLIA [id number] [address] [place] [address] [place] Creatinine and Glomerular filtration rate.predicted panel (S/P/Bld) 89 mL/min/1.73m??? Normal >=60 [facility] Comment on above: Order Comment: Speci men Type: BLOOD SPECIMEN [facility] Address: [address] [place] [address] Result Comment: Renae mated Glomerular Filtration Rate [...] GFR. Performed By: #### 2 986-8 #### [facility] CLIA [id number] [address] [place] [address] [place] Glucose [Mass/Vol] 128 mg/dL High 74-99 [facility] Comment on above: Order Comment: Speci men Type: BLOOD SPECIMEN [facility] Address: [address] [place] [address] Result Comment: [employer] [place] Diabetes Association (ADA) provides guidance for cutoff [...] Standards of Medical Care in Diabetes 2016, [place] [employer]. Diabetes Care. 2016.39(Suppl 1). Performed By: #### 2 986-8 #### [facility] CLIA [id number] [address] [place] [address] [place] Potassium [Moles/Vol] 4.8 mmol/L Normal 3.7-5.1 [facility] Comment on above: Order Comment: Speci men Type: BLOOD SPECIMEN Ordering Facility: [facility] Address: [address] [place] [address] Performed By: #### 2 986-8 #### [facility] CLIA [id number] [address] [place] [address] [place] Protein [Mass/Vol] 6.5 g/dL Normal 6.3-8.0 [facility] Comment on above: Order Comment: Francii men Type: BLOOD SPECIMEN Ordering Facility: [facility] Address: [address] [place] [address] Performed By: #### 2 986-8 #### [facility] CLIA [id number] [address] [place] [address] [place] Sodium [Moles/Vol] 140 mmol/L Normal 136-144 [facility] Comment on above: Order Comment: Speci men Type: BLOOD SPECIMEN Ordering Facility: [facility] Address: [address] [place] [address] Performed By: #### 2 986-8 #### [facility] CLIA [id number] [address] [place] [address] [place] Urea nitrogen [Mass/Vol] 18 mg/dL Normal 9-24 [facility] Comment on above: Order Comment: Speci men Type: BLOOD SPECIMEN Ordering Facility: [facility] Address: [address] [place] [address] Performed By: #### 2 986-8 #### [facility] CLIA [id number] [address] [place] [address] [place] Eosinophils/100 WBC Auto (Bl d)on 10-30-2023 Eosinophils/100 WBC (Bld) 4.3 % [facility] Erythrocyte distribution wid th Auto (RBC) [Ratio]on 10-30-2023 Erythrocyte distribution width (RBC) [Ratio] 12.8 % 11.5-15.0 [facility] Hematocrit Auto (Bld) [Volum e fraction]on 10-30-2023 Hematocrit (Bld) [Volume fraction] 35.8 % 39.0-51.0 [facility] Hemoglobin [Mass/volume] in Bloodon 10-30-2023 Hemoglobin (Bld) [Mass/Vol] 12.2 g/dL 13.0-17.0 [facility] Laboratory - Chemistry and C hemistry - challengeon 10-30-2023 Albumin [Mass/Vol] 4.1 g/dL 3.9-4.9 [facility] ALP [Catalytic activity/Vol] 75 U/L 38-113 [facility] ALT [Catalytic activity/Vol] 16 U/L 10-54 [facility] AST [Catalytic activity/Vol] 16 U/L 14-40 [facility] Bilirubin [Mass/Vol] 0.7 mg/dL 0.2-1.3 [facility] Calcium [Mass/Vol] 9.8 mg/dL 8.5-10.2 [facility] Chloride [Moles/Vol] 103 mmol/L 97-105 [facility] CO2 [Moles/Vol] 24 mmol/L 22-30 [facility] Creatinine [Mass/Vol] 0.88 mg/dL 0.73-1.22 [facility] Glucose [Mass/Vol] 128 mg/dL 74-99 [facility] Comment on above: The [place] Diabete s Association (ADA) provides guidance for [...] Standards of Medical Care in Diabetes 2016, [place] Diabetes Association. Diabetes Care. 2016.39(Suppl 1). Potassium [Moles/Vol] 4.8 mmol/L 3.7-5.1 [facility] Sodium [Moles/Vol] 140 mmol/L 136-144 [facility] Urea nitrogen [Mass/Vol] 18 mg/dL 9-24 [facility] Laboratory - Hematology and Cell countson 10-30-2023 Eosinophils (Bld) [#/Vol] 0.35 10*3/uL <0.46 [facility] Immature granulocytes (Bld) [#/Vol] 0.04 10*3/uL <0.10 [facility] Immature granulocytes/100 WBC (Bld) 0.5 % [facility] Leukocytes [#/volume] correc jomar for nucleated erythrocytes in Blood by Automated counon 10-30-2023 WBC corrected for nucl RBC Auto (Bld) [#/Vol] 8.19 k/uL 3.70-11.00 [facility] Lymphocytes Auto (Bld) [#/Vo l]on 10-30-2023 Lymphocytes (Bld) [#/Vol] 1.36 10*3/uL 1.00-4.00 [facility] Lymphocytes/100 WBC Auto (Bl d)on 10-30-2023 Lymphocytes/100 WBC (Bld) 16.6 % [facility] MCH Auto (RBC) [Entitic mass ]on 10-30-2023 MCH (RBC) [Entitic mass] 31.3 pg 26.0-34.0 [facility] MCHC Auto (RBC) [Mass/Vol]on 10-30-2023 MCHC (RBC) [Mass/Vol] 34.1 g/dL 30.5-36.0 [facility] MCV Auto (RBC) [Entitic vol] on 10-30-2023 MCV (RBC) [Entitic vol] 91.8 fL 80.0-100.0 [facility] Monocytes Auto (Bld) [#/Vol] on 10-30-2023 Monocytes (Bld) [#/Vol] 0.62 10*3/uL <0.87 [facility] Monocytes/100 WBC Auto (Bld) on 10-30-2023 Monocytes/100 WBC (Bld) 7.6 % [facility] Neutrophils Auto (Bld) [#/Vo l]on 10-30-2023 Neutrophils (Bld) [#/Vol] 5.78 10*3/uL 1.45-7.50 [facility] Neutrophils/100 WBC Auto (Bl d)on 10-30-2023 Neutrophils/100 WBC (Bld) 70.5 % [facility] No Panel Informationon 10-29 Estimated GFR (CKD-EPI) 89 mL/min/1.73m??? >=60 [facility] Comment on above: Estimated Glomerular Filtration [...] GFR. Prostate Specific Antigen 0.16 ng/mL <2.60 [facility] Comment on above: Total PSA test metho dology used is the Electrochemiluminescence Immunoassay by [employer]. Total PSA values by differing methodologies cannot be interchanged. Testosterone Level 78 ng/dL 193-824 [facility] Comment on above: A testosterone level in the 193-320 ng/dL range with associated clinical symptoms is considered low and may indicate hypogonadism (from [facility] 2010 363:123-135). Results >320 ng/dL are considered normal.Result rechecked. Nucleated RBC Auto (Bld) [#/ Vol]on 10-30-2023 Nucleated RBC (Bld) [#/Vol] 10*3/uL <0.01 [facility] Nucleated erythrocytes [Pres ence] in Blood by Automated counton 10-30-2023 Nucleated RBC Auto Ql (Bld) 0.0 /100{WBC} [facility] PSA SerPl-mCncon 10-30-2023 Prostate specific Ag [Mass/Vol] 0.16 ng/mL Normal <2.60 [facility] Comment on above: Order Comment: Speci men Type: BLOOD SPECIMEN Ordering Facility: [facility] Address: [address] [place] [address] Result Comment: Tota l PSA test methodology used is the Electrochemiluminescence Immunoassay by [employer]. Total PSA values by differing methodologies cannot be interchanged. Performed By: #### 2 986-8 #### [facility] CLIA [id number] [address] [place] [address] [place] Platelet mean volume Auto (B ld) [Entitic vol]on 10-30-2023 Platelet mean volume (Bld) [Entitic vol] 9.5 fL 9.0-12.7 [facility] Platelets Auto (Bld) [#/Vol] on 10-30-2023 Platelets (Bld) [#/Vol] 192 10*3/uL 150-400 [facility] Protein [Mass/volume] in Ser um or Plasmaon 10-30-2023 Protein [Mass/Vol] 6.5 g/dL 6.3-8.0 [facility] RBC Auto (Bld) [#/Vol]on RBC (Bld) [#/Vol] 3.90 10*6/uL 4.20-6.00 [facility] Serum or plasma anion gap de terminationon 10-30-2023 Anion gap [Moles/Vol] 13 mmol/L - [facility] Testost SerPl-mCncon 024 Testosterone [Mass/Vol] 78 ng/dL Low 193-824 [facility] Comment on above: Order Comment: Speci men Type: BLOOD SPECIMEN Ordering Facility: [facility] Address: [address] [place] [address] Result Comment: A te stosterone level in the 193-320 ng/dL range with associated clinical symptoms is considered low and may indicate hypogonadism (from [facility] 2010 363:123-135). Results >320 ng/dL are considered normal. Result rechecked. Performed By: #### 2 986-8 #### [facility] CLIA [id number] [address] [place] [address] [facility] Patient Educationon 10-20-19 24 Patient Education Oncology [...] under a microscope. This is called the Halls score and the total score can range from 6?10, indicating how likely it is that the cancer will spread (metastasize) to other parts of the body. The higher the score, the greater the likelihood that the cancer will spread. ? Halls 6 or lower: This indicates that the cancer cells look similar to normal prostate cells (well differentiated). ? Lucrecia 7: This indicates that the cancer cells look somewhat similar to normal prostate cells (moderately differentiated). ? Halls 8, 9, or 10: This indicates that [...] external be (more content not included)... Normal [facility] Urology Office/Clinic Noteon 10-20-2023 Urology Office/Clinic [...] <0.13 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 Lucrecia 9 (5+4), pT2b, N0, Mo. Last Lupron [...] Contact Information KAEL JAMES, Anthony Lee, URL [address] [place] [address]- Additional Instructions: 6 mos w/ PSA and possible Lupron Patient Education Prostate Cancer I, Olamide Ureña, personally scribed for Dr. Scruggs on 10/20/2023 09:55:49. . Documentation recorded by the scribe, Olamide Ureña, accurately reflects the services(s) I performed and decisions made by me. Authenticated by Dr. Scruggs on 10/20/2023 09:57:09. Problem List/Past Medical History [...] 1 tab(s), Oral, Daily ipratropium Nasal 0.06% [place] metformin 1000 mg oral tablet, Oral, BID metoprolol 25 mg ER Tab, 25 mg= 1 tab(s), Oral, BID Vitamin D3 Xtandi 80 mg oral tablet, Oral, Daily Allergies penicillin G benzathine (Unknown) Social History Alcohol Current, 1-2 times per year, 02/04/2019 Tobacco Never (less than 100 in lifetime) Tobacco Use:. Never Smokeless Tobacco Use:. (more content not included)... [facility] Comment on above: Result Comment: Elec tronically Signed By: Anthony SCRUGGS MD\.br\Date and Time Signed: 10/20/23 09:57 EDT\.br\Electronically Co-Signed By: Olamide Ureña.br\Date and Time Co-Signed: 10/20/23 09:55 EDT Lab Reportson 10-10-2023 Lab Reports [id number]#1.00TIFF [facility] RAD - MISCon 10-10-2023 RAD - MISC [id number]#1.00TIFF [facility] No Panel Informationon 10-08 Prostate Specific Antigen Total <0.13 ng/mL <=4.00 [facility] No Panel Informationon 08-28 [facility] Type of biopsy: schmidt ential Informed consent: [...] yes Amount of lidocaine used: 0.5 cc [facility] Consultation Noteon 08-04-19 Consultation Note [id number]#1.00TIFF Beulah Rogel [facility] CNOVSPon 08-03-2023 OVSP Visit (SP) Office (Kiara MUELLER) PABLO FELIX ([id number]) 1945 M Date Time Provider Department 08/03/23 [...] OTHER PHYSICIANS: Dr. Anthony Scruggs, Dr. Khan, [facility] Cardiology Portions of this encounter [...] mg 24 hr tablet Take by mouth. 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 Left base margin positive for ne (more content not included)... Normal [facility]Non [facility]03[facility]20[facility] PABLO FELIX ([id number]) 1945 M Date Time Provider Department 08/03/23 [facility] A [facility] During your visit today, we recorded the following information about you: Alexandrea Ernst 08/03/2023 9:23 AM Signed Patient needs an appointment with Dermatology for right ear lesion. Yudy/Narciso: Can you please refer patient to [facility] Derm and follow up? Thanks! Naila Rodriguez 08/03/2023 9:51 AM Signed Yudy:Information ready for you. Keysha Neil 08/04/2023 8:05 AM Signed Records faxed to [facility] Dermatology. Naila Liao 08/07/2023 2:54 PM Signed Called [facility] Derm office. 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 Naila Horne Pss Allergies As of Date: 08/03/2023 Noted Allergy Reaction PENICILLINS 08/06/2014 16 - Unknown SIMVASTATIN 07/05/2002 16 - Unknown Date Reviewed: 08/03/2023 Reviewed by: Katie Rosen MA - Fully Assessed Reason for Visit: Referral Information [7940] Cmt: Dermatology Prescriptions as of 08/07/2023 - [...] 24 hr tablet Take by mouth. - Tegorfakkcldl-Kolxljcf-Rpyv in (MULTIVITAMIN 50 PLUS) tab Take 1 [...] Status:Closed by ALEXANDREA ERNST on 08/07/23 Normal [facility] CBC W Auto Differential pane l (Bld)on 07-27-2023 Basophils (Bld) [#/Vol] 0.05 10*3/uL Normal <0.11 [facility] Comment on above: Order Comment: Speci men Type: BLOOD SPECIMEN Ordering Facility: [facility] Address: [address] [place] [address] Performed By: #### 5 7021-8 #### [facility] CLIA [id number] [address] [place] [address] Basophils/100 WBC (Bld) 0.8 % Normal [facility] Comment on above: Order Comment: Speci men Type: BLOOD SPECIMEN Ordering Facility: [facility] Address: [address] [place] [address] Performed By: #### 5 7021-8 #### [facility] CLIA [id number] [address] [place] [address] 60585 Differential cell count method Nom (Bld) Auto Normal [facility] Comment on above: Order Comment: Speci men Type: BLOOD SPECIMEN Ordering Facility: [facility] Address: [address] [place] [address] Performed By: #### 5 7021-8 #### [facility] CLIA [id number] [address] [place] [address]33 Eosinophils (Bld) [#/Vol] 0.40 10*3/uL Normal <0.46 [facility] Comment on above: Order Comment: Speci men Type: BLOOD SPECIMEN Ordering Facility: [facility] Address: [address] [place] [address] Performed By: #### 5 7021-8 #### [facility] CLIA [id number] [address] [place] [address]116 Eosinophils/100 WBC (Bld) 6.2 % Normal [facility] Comment on above: Order Comment: Speci men Type: BLOOD SPECIMEN Ordering Facility: [facility] Address: [address] [place] [address] Performed By: #### 5 7021-8 #### [facility] CLIA [id number] [address] [place] [address]21 Erythrocyte distribution width (RBC) [Ratio] 12.5 % Normal 11.5-15.0 [facility] Comment on above: Order Comment: Speci men Type: BLOOD SPECIMEN Ordering Facility: [facility] Address: [address] [place] [address] Performed By: #### 5 7021-8 #### [facility] CLIA [id number] [address] [place] [address] 57566 Hematocrit (Bld) [Volume fraction] 34.8 % Low 39.0-51.0 [facility] Comment on above: Order Comment: Speci men Type: BLOOD SPECIMEN Ordering Facility: [facility] Address: [address] [place] [address] Performed By: #### 5 7021-8 #### [facility] CLIA [id number] [address] [place] [address] 79889 Hemoglobin (Bld) [Mass/Vol] 11.8 g/dL Low 13.0-17.0 [facility] Comment on above: Order Comment: Speci men Type: BLOOD SPECIMEN Ordering Facility: [facility] Address: [address] [place] [address] Performed By: #### 5 7021-8 #### [facility] CLIA [id number] [address] [place] [address] 41942 Immature granulocytes (Bld) [#/Vol] 0.05 10*3/uL Normal <0.10 [facility] Comment on above: Order Comment: Speci men Type: BLOOD SPECIMEN Ordering Facility: [facility] Address: [address] [place] [address] Performed By: #### 5 7021-8 #### [facility] CLIA [id number] [address] [place] [address] 05586 Immature granulocytes/100 WBC (Bld) 0.8 % Normal [facility] Comment on above: Order Comment: Speci men Type: BLOOD SPECIMEN Ordering Facility: [facility] Address: [address] [place] [address] Performed By: #### 5 7021-8 #### [facility] CLIA [id number] [address] [place] [address] 87847 Lymphocytes (Bld) [#/Vol] 1.78 10*3/uL Normal 1.00-4.00 [facility] Comment on above: Order Comment: Speci men Type: BLOOD SPECIMEN Ordering Facility: [facility] Address: [address] [place] [address] Performed By: #### 5 7021-8 #### [facility] CLIA [id number] [address] [place] [address] 56199 Lymphocytes/100 WBC (Bld) 27.7 % Normal [facility] Comment on above: Order Comment: Speci men Type: BLOOD SPECIMEN Ordering Facility: [facility] Address: [address] [place] [address] Performed By: #### 5 7021-8 #### [facility] CLIA [id number] [address] [place] [address] 97518 MCH (RBC) [Entitic mass] 32.2 pg Normal 26.0-34.0 [facility] Comment on above: Order Comment: Speci men Type: BLOOD SPECIMEN Ordering Facility: [facility] Address: [address] [place] [address] Performed By: #### 5 7021-8 #### [facility] CLIA [id number] [address] [place] [address] 79978 MCHC (RBC) [Mass/Vol] 33.9 g/dL Normal 30.5-36.0 [facility] Comment on above: Order Comment: Speci men Type: BLOOD SPECIMEN Ordering Facility: [facility] Address: [address] [place] [address] Performed By: #### 5 7021-8 #### [facility] CLIA [id number] [address] [place] [address]5311 MCV (RBC) [Entitic vol] 94.8 fL Normal 80.0-100.0 [facility] Comment on above: Order Comment: Speci men Type: BLOOD SPECIMEN Ordering Facility: [facility] Address: [address] [place] [address] Performed By: #### 5 7021-8 #### [facility] CLIA [id number] [address] [place] [address] 20978 Monocytes (Bld) [#/Vol] 0.67 10*3/uL Normal <0.87 [facility] Comment on above: Order Comment: Speci men Type: BLOOD SPECIMEN Ordering Facility: [facility] Address: [address] [place] [address] Performed By: #### 5 7021-8 #### [facility] CLIA [id number] [address] [place] [address] Monocytes/100 WBC (Bld) 10.4 % Normal [facility] Comment on above: Order Comment: Speci men Type: BLOOD SPECIMEN Ordering Facility: [facility] Address: [address] [place] [address] Performed By: #### 5 7021-8 #### [facility] CLIA [id number] [address] [place] [address] 93185 Neutrophils (Bld) [#/Vol] 3.48 10*3/uL Normal 1.45-7.50 [facility] Comment on above: Order Comment: Speci men Type: BLOOD SPECIMEN Ordering Facility: [facility] Address: [address] [place] [address] Performed By: #### 5 7021-8 #### [facility] CLIA [id number] [address] [place] [address] 54696 Neutrophils/100 WBC (Bld) 54.1 % Normal [facility] Comment on above: Order Comment: Speci men Type: BLOOD SPECIMEN Ordering Facility: [facility] Address: [address] [place] [address] Performed By: #### 5 7021-8 #### [facility] CLIA [id number] [address] [place] [address] 02442 Nucleated RBC (Bld) [#/Vol] 10*3/uL Normal <0.01 [facility] Comment on above: Order Comment: Speci men Type: BLOOD SPECIMEN Ordering Facility: [facility] Address: [address] [place] [address] Performed By: #### 5 7021-8 #### [facility] CLIA [id number] [address] [place] [address] 18790 Nucleated RBC/100 WBC (Bld) [Ratio] 0.0 /100 WBC Normal [facility] Comment on above: Order Comment: Speci men Type: BLOOD SPECIMEN Ordering Facility: [facility] Address: [address] [place] [address] Performed By: #### 5 7021-8 #### [facility] CLIA [id number] [address] [place] [address] 25048 Platelet mean volume (Bld) [Entitic vol] 9.9 fL Normal 9.0-12.7 [facility] Comment on above: Order Comment: Speci men Type: BLOOD SPECIMEN Ordering Facility: [facility] Address: [address] [place] [address] Performed By: #### 5 7021-8 #### [facility] CLIA [id number] [address] [place] [address] 57144 Platelets (Bld) [#/Vol] 199 10*3/uL Normal 150-400 [facility] Comment on above: Order Comment: Speci men Type: BLOOD SPECIMEN Ordering Facility: [facility] Address: [address] [place] [address] Performed By: #### 5 7021-8 #### [facility] CLIA [id number] [address] [place] [address] 17653 RBC (Bld) [#/Vol] 3.67 10*6/uL Low 4.20-6.00 [facility] Comment on above: Order Comment: Speci men Type: BLOOD SPECIMEN Ordering Facility: [facility] Address: [address] [place] [address] Performed By: #### 5 7021-8 #### [facility] CLIA [id number] [address] [place] [address] 65396 WBC (Bld) [#/Vol] 6.43 10*3/uL Normal 3.70-11.00 [facility] Comment on above: Order Comment: Speci men Type: BLOOD SPECIMEN Ordering Facility: [facility] Address: [address] [place] [address] Performed By: #### 5 7021-8 #### [facility] CLIA [id number] [address] [place] [address] Comprehensive metabolic 2000 panelon 07-27-2023 Albumin [Mass/Vol] 4.2 g/dL Normal 3.9-4.9 [facility] Comment on above: Order Comment: Speci men Type: BLOOD SPECIMEN Ordering Facility: [facility] Address: [address] [place] [address] Performed By: #### 2 986-8 #### [facility] CLIA [id number] [address] [place] [address] [place] ALP [Catalytic activity/Vol] 73 U/L Normal 38-113 [facility] Comment on above: Order Comment: Speci men Type: BLOOD SPECIMEN Ordering Facility: [facility] Address: [address] [place] [address] Performed By: #### 2 986-8 #### [facility] CLIA [id number] [address] [place] [address] [place] ALT [Catalytic activity/Vol] 16 U/L Normal 10-54 [facility] Comment on above: Order Comment: Speci men Type: BLOOD SPECIMEN Ordering Facility: [facility] Address: [address] [place] [address] Performed By: #### 2 986-8 #### [facility] CLIA [id number] [address] [place] [address] [place] Anion gap [Moles/Vol] 10 mmol/L Normal 9-18 [facility] Comment on above: Order Comment: Speci men Type: BLOOD SPECIMEN Ordering Facility: [facility] Address: [address] [place] [address] Performed By: #### 2 986-8 #### [facility] CLIA [id number] [address] [place] [address] [place] AST [Catalytic activity/Vol] 17 U/L Normal 14-40 [facility] Comment on above: Order Comment: Speci men Type: BLOOD SPECIMEN Ordering Facility: [facility] Address: [address] [place] [address] Performed By: #### 2 986-8 #### [facility] CLIA [id number] [address] [place] [address] [place] Bilirubin [Mass/Vol] 0.6 mg/dL Normal 0.2-1.3 [facility] Comment on above: Order Comment: Speci men Type: BLOOD SPECIMEN Ordering Facility: [facility] Address: [address] [place] [address] Performed By: #### 2 986-8 #### [facility] CLIA [id number] [address] [place] [address] [place] Calcium [Mass/Vol] 9.5 mg/dL Normal 8.5-10.2 [facility] Comment on above: Order Comment: Speci men Type: BLOOD SPECIMEN Ordering Facility: [facility] Address: [address] [place] [address] Performed By: #### 2 986-8 #### [facility] CLIA [id number] [address] [place] [address] [place] Chloride [Moles/Vol] 102 mmol/L Normal 97-105 [facility] Comment on above: Order Comment: Speci men Type: BLOOD SPECIMEN Ordering Facility: [facility] Address: [address] [place] [address] Performed By: #### 2 986-8 #### [facility] CLIA [id number] [address] [place] [address] [place] CO2 [Moles/Vol] 26 mmol/L Normal 22-30 [facility] Comment on above: Order Comment: Speci men Type: BLOOD SPECIMEN Ordering Facility: [facility] Address: [address] [place] [address] Performed By: #### 2 986-8 #### [facility] CLIA [id number] [address] [place] Creatinine [Mass/Vol] 0.85 mg/dL Normal 0.73-1.22 [facility] Comment on above: Order Comment: Nicanor camilo Type: BLOOD SPECIMEN Ordering Facility: [facility] Address: [address] [place] [address] Performed By: #### 2 986-8 #### [facility] CLIA [id number] [address] [place] [address] [place] Creatinine and Glomerular filtration rate.predicted panel (S/P/Bld) 89 mL/min/1.73m??? Normal >=60 [facility] Comment on above: Order Comment: Nicanor camilo Type: BLOOD SPECIMEN Ordering Facility: [facility] Address: [address] [place] [address] Result Comment: Renae mated Glomerular Filtration Rate [...] GFR. Performed By: #### 2 986-8 #### [facility] CLIA [id number] [address] [place] [address] [place] Glucose [Mass/Vol] 117 mg/dL High 74-99 [facility] Comment on above: Order Comment: Nicanor camilo Type: BLOOD SPECIMEN Ordering Facility: [facility] Address: [address] [place] [address] Result Comment: The [place] Diabetes Association (ADA) provides guidance for cutoff [...] Standards of Medical Care in Diabetes 2016, [place] Diabetes Association. Diabetes Care. 2016.39(Suppl 1). Performed By: #### 2 986-8 #### [facility] CLIA [id number] [address] [place] [address] [place] Potassium [Moles/Vol] 4.8 mmol/L Normal 3.7-5.1 [facility] Comment on above: Order Comment: Speci men Type: BLOOD SPECIMEN Ordering Facility: [facility] Address: [address] [place] [address] Performed By: #### 2 986-8 #### [facility] CLIA [id number] [address] [place] [address] [place] Protein [Mass/Vol] 6.6 g/dL Normal 6.3-8.0 [facility] Comment on above: Order Comment: Speci men Type: BLOOD SPECIMEN Ordering Facility: [facility] Address: [address] [place] [address] Performed By: #### 2 986-8 #### [facility] CLIA [id number] [address] [place] [address] [place] Sodium [Moles/Vol] 138 mmol/L Normal 136-144 [facility] Comment on above: Order Comment: Speci men Type: BLOOD SPECIMEN Ordering Facility: [facility] Address: [address] [place] [address] Performed By: #### 2 986-8 #### [facility] CLIA [id number] [address] [place] [address] [place] Urea nitrogen [Mass/Vol] 13 mg/dL Normal 9-24 [facility] Comment on above: Order Comment: Speci men Type: BLOOD SPECIMEN Ordering Facility: [facility] Address: [address] [place] [address] Performed By: #### 2 986-8 #### [facility] CLIA [id number] [address] [place] [address] [place] PSA SerPl-mCncon 07-27-2023 Prostate specific Ag [Mass/Vol] 0.13 ng/mL Normal <2.60 [facility] Comment on above: Order Comment: Speci men Type: BLOOD SPECIMEN Ordering Facility: [facility] Address: [address] [place] [address] Result Comment: Tota l PSA test methodology used is the Electrochemiluminescence Immunoassay by [employer]. Total PSA values by differing methodologies cannot be interchanged. Performed By: #### 2 986-8 #### [facility] CLIA [id number] [address] [place] [address] [place] Office Visiton 06-22-2023 Follow-up visit [id number] Pablo Felix 1945 M Date Provider Department Center 06/22/2023 [facility] Family History Problem Relation Age of Onset Coronary artery disease Father Family Status - Relation Status Age at Father Level of Service:12728 [place] OFFICE/OUTPATIENT ESTABLISHED MOD MDM 30-39 MIN Normal [facility] CNOVSPon 04-27-2023 CNOVSP Visit (SP) Office (H EMASA) PABLO FELIX ([id number]) 1945 M Date Time Provider Department 04/27/23 10:00 AM CHRISTO HOWARD During your visit today, we recorded the following information about you: Temperature Pulse Respiration Blood pressure 97 degrees 50/minute 16/minute 141/49 Weight Height 92.5 kg 1.676 m Christo Howard APRN.ALEXA 04/27/2023 11:16 AM Signed PATIENT NAME: Pablo Felix DATE: 04/27/2023 PRIMARY CARE PHYSICIAN: Dr. Jamar Fall OTHER PHYSICIANS: Dr. Anthony Scruggs, Dr. Khan, [facility] Cardiology Portions of this encounter [...] mg 24 hr tablet Take by mouth. 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 Left base margin positive for neoplasm. Seminal vesicles with no diagnostic abnormality. 2 resected lymph nodes negati (more content not included)... Normal [facility] Basic metabolic 2000 panelon 04-24-2023 Anion gap [Moles/Vol] 13 mmol/L Normal 9-18 [facility] Comment on above: Order Comment: Speci men Type: BLOOD SPECIMEN Ordering Facility: [facility] Address: [address] [place] [address] Performed By: #### 2 986-8 #### [facility] CLIA [id number] [address] [place], [place] [address] [place] Calcium [Mass/Vol] 10.2 mg/dL Normal 8.5-10.2 [facility] Comment on above: Order Comment: Speci men Type: BLOOD SPECIMEN Ordering Facility: [facility] Address: [address] [place], [place] [address] Performed By: #### 2 986-8 #### [facility] CLIA [id number] [address] [place] [address] [place] Chloride [Moles/Vol] 100 mmol/L Normal 97-105 [facility] Comment on above: Order Comment: Speci men Type: BLOOD SPECIMEN Ordering Facility: [facility] Address: [address] [place], [place] [address] Performed By: #### 2 986-8 #### [facility] CLIA [id number] [address] [place] [address] [place] CO2 [Moles/Vol] 24 mmol/L Normal 22-30 [facility] Comment on above: Order Comment: Speci men Type: BLOOD SPECIMEN Ordering Facility: [facility] Address: [address] [place], [place] [address] Performed By: #### 2 986-8 #### [facility] CLIA [id number] [address] [place], [place] [address] [place] Creatinine [Mass/Vol] 0.75 mg/dL Normal 0.73-1.22 [facility] Comment on above: Order Comment: Speci men Type: BLOOD SPECIMEN Ordering Facility: [facility] Address: [address] [place] [address] Performed By: #### 2 986-8 #### [facility] CLIA [id number] [address] [place] [address] [place] Creatinine and Glomerular filtration rate.predicted panel (S/P/Bld) 93 mL/min/1.73m??? Normal >=60 [facility] Comment on above: Order Comment: Nicanor camilo Type: BLOOD SPECIMEN Ordering Facility: [facility] Address: [address] [place] [address] Result Comment: Renae mated Glomerular Filtration Rate [...] GFR. Performed By: #### 2 986-8 #### [facility] CLIA [id number] [address] [place] [address] [place] Glucose [Mass/Vol] 113 mg/dL High 74-99 [facility] Comment on above: Order Comment: Nicanor camilo Type: BLOOD SPECIMEN Ordering Facility: [facility] Address: [address] [place] [address] Result Comment: The [place] Diabetes Association (ADA) provides guidance for cutoff [...] Standards of Medical Care in Diabetes 2016, [place] [employer]. Diabetes Care. 2016.39(Suppl 1). Performed By: #### 2 986-8 #### [facility] CLIA [id number] [address] [place] [address] [place] Potassium [Moles/Vol] 4.9 mmol/L Normal 3.7-5.1 [facility] Comment on above: Order Comment: Speci men Type: BLOOD SPECIMEN Ordering Facility[facility] Address: [address] [place] [address] Performed By: #### 2 986-8 #### [facility] CLIA [id number] [address] [place] [address] [place] Sodium [Moles/Vol] 137 mmol/L Normal 136-144 [facility] Comment on above: Order Comment: Speci men Type: BLOOD SPECIMEN Ordering Facility[facility] Address: [address] [place] [address] Performed By: #### 2 986-8 #### [facility] CLIA [id number] [address] [place] [address] [place] Urea nitrogen [Mass/Vol] 11 mg/dL Normal 9-24 [facility] Comment on above: Order Comment: Speci men Type: BLOOD SPECIMEN Ordering Facility: [facility] Address: [address] [place] [address] Performed By: #### 2 986-8 #### [facility] CLIA [id number] [address] [place] [address] [place] CBC W Auto Differential pane l (Bld)on 04-24-2023 Basophils (Bld) [#/Vol] 0.03 10*3/uL Normal <0.11 [facility] Comment on above: Order Comment: Speci men Type: BLOOD SPECIMENOrdering Facility: [facility] Address: [address] [place] [address] Performed By: #### 5 7021-8 ####[facility] [id number] [place] [address] Basophils/100 WBC (Bld) 0.4 % Normal [facility] Comment on above: Order Comment: Speci men Type: BLOOD SPECIMENOrdering Facility: [facility] Address: [address] [place] [address] Performed By: #### 5 7021-8 ####[facility] [id number] [place] [address] Differential cell count method Nom (Bld) Auto Normal [facility] Comment on above: Order Comment: Speci men Type: BLOOD SPECIMENOrdering Facility: [facility] Address: [address] [place] [address] Performed By: #### 5 7021-8 ####[facility] [id number] [place] [address] Eosinophils (Bld) [#/Vol] 0.23 10*3/uL Normal <0.46 [facility] Comment on above: Order Comment: Speci men Type: BLOOD SPECIMENOrdering Facility: [facility] Address: [address] [place] [address] Performed By: #### 5 7021-8 ####[facility] [id number] [place] [address] Eosinophils/100 WBC (Bld) 3.4 % Normal [facility] Comment on above: Order Comment: Speci men Type: BLOOD SPECIMENOrdering Facility: [facility] Address: [address] [place] [address] Performed By: #### 5 7021-8 ####[facility] [id number] [place] [address] Erythrocyte distribution width (RBC) [Ratio] 13.1 % Normal 11.5-15.0 [facility] Comment on above: Order Comment: Speci men Type: BLOOD SPECIMENOrdering Facility: [facility] Address: [address] [place] [address] Performed By: #### 5 7021-8 ####[facility] [id number] [place] [address] Hematocrit (Bld) [Volume fraction] 36.2 % Low 39.0-51.0 [facility] Comment on above: Order Comment: Speci men Type: BLOOD SPECIMENOrdering Facility: [facility] Address: [address] [place] [address] Performed By: #### 5 7021-8 ####[facility] [id number] [place] [address] Hemoglobin (Bld) [Mass/Vol] 12.2 g/dL Low 13.0-17.0 [facility] Comment on above: Order Comment: Speci men Type: BLOOD SPECIMENOrdering Facility: [facility] Address: [address] [place] [address] Performed By: #### 5 7021-8 ####[facility] [id number] [place] [address] Immature granulocytes (Bld) [#/Vol] 0.07 10*3/uL Normal <0.10 [facility] Comment on above: Order Comment: Speci men Type: BLOOD SPECIMENOrdering Facility: [facility] Address: [address] [place] [address] Performed By: #### 5 7021-8 ####[facility] [id number] [place] [address] Immature granulocytes/100 WBC (Bld) 1.0 % Normal [facility] Comment on above: Order Comment: Speci men Type: BLOOD SPECIMENOrdering Facility: [facility] Address: [address] [place] [address] Performed By: #### 5 7021-8 ####[facility] [id number] [place] [address] Lymphocytes (Bld) [#/Vol] 2.02 10*3/uL Normal 1.00-4.00 [facility] Comment on above: Order Comment: Speci men Type: BLOOD SPECIMENOrdering Facility: [facility] Address: [address] [place] [address] Performed By: #### 5 7021-8 ####[facility] [id number] [place] [address] Lymphocytes/100 WBC (Bld) 29.7 % Normal [facility] Comment on above: Order Comment: Speci men Type: BLOOD SPECIMENOrdering Facility: [facility] Address: [address] [place] [address] Performed By: #### 5 7021-8 ####[facility] [id number] [place] [address] MCH (RBC) [Entitic mass] 31.5 pg Normal 26.0-34.0 [facility] Comment on above: Order Comment: Speci men Type: BLOOD SPECIMENOrdering Facility: [facility] Address: [address] [place] [address] Performed By: #### 5 7021-8 ####[facility] [id number] [place] [address] MCHC (RBC) [Mass/Vol] 33.7 g/dL Normal 30.5-36.0 [facility] Comment on above: Order Comment: Speci men Type: BLOOD SPECIMENOrdering Facility: [facility] Address: [address] [place] [address] Performed By: #### 5 7021-8 ####[facility] [id number] [place] [address] MCV (RBC) [Entitic vol] 93.5 fL Normal 80.0-100.0 [facility] Comment on above: Order Comment: Speci men Type: BLOOD SPECIMENOrdering Facility: [facility] Address: [address] [place] [address] Performed By: #### 5 7021-8 ####[facility] [id number] [place] [address] Monocytes (Bld) [#/Vol] 0.62 10*3/uL Normal <0.87 [facility] Comment on above: Order Comment: Speci men Type: BLOOD SPECIMENOrdering Facility: [facility] Address: [address] [place] [address] Performed By: #### 5 7021-8 ####[facility]IA [id number] [place] [address] Monocytes/100 WBC (Bld) 9.1 % Normal [facility] Comment on above: Order Comment: Speci men Type: BLOOD SPECIMENOrdering Facility: [facility] Address: [address] [place] [address] Performed By: #### 5 7021-8 ####[facility] [id number] [place] [address] Neutrophils (Bld) [#/Vol] 3.83 10*3/uL Normal 1.45-7.50 [facility] Comment on above: Order Comment: Speci men Type: BLOOD SPECIMENOrdering Facility: [facility] Address: [address] [place] [address] Performed By: #### 5 7021-8 ####[facility]IA [id number] [place] [address] Neutrophils/100 WBC (Bld) 56.4 % Normal [facility] Comment on above: Order Comment: Speci men Type: BLOOD SPECIMENOrdering Facility: [facility] Address: [address] [place] [address] Performed By: #### 5 7021-8 ####[facility]IA [id number] [place] [address] Nucleated RBC (Bld) [#/Vol] 10*3/uL Normal <0.01 [facility] Comment on above: Order Comment: Speci men Type: BLOOD SPECIMENOrdering Facility: [facility] Address: [address] [place] [address] Performed By: #### 5 7021-8 ####[facility]IA [id number] [place] [address] Nucleated RBC/100 WBC (Bld) [Ratio] 0.0 /100 WBC Normal [facility] Comment on above: Order Comment: Speci men Type: BLOOD SPECIMENOrdering Facility: [facility] Address: [address] [place] [address] Performed By: #### 5 7021-8 ####[facility]CLIA [id number] [place] [address] Platelet mean volume (Bld) [Entitic vol] 10.0 fL Normal 9.0-12.7 [facility] Comment on above: Order Comment: Speci men Type: BLOOD SPECIMENOrdering Facility: [facility] Address: [address] [place] [address] Performed By: #### 5 7021-8 ####[facility]CLIA [id number] [place] [address] Platelets (Bld) [#/Vol] 195 10*3/uL Normal 150-400 [facility] Comment on above: Order Comment: Speci men Type: BLOOD SPECIMENOrdering Facility: [facility] Address: [address] [place] [address] Performed By: #### 5 7021-8 ####[facility]CLIA [id number] [place] [address] RBC (Bld) [#/Vol] 3.87 10*6/uL Low 4.20-6.00 [facility] Comment on above: Order Comment: Speci men Type: BLOOD SPECIMENOrdering Facility: [facility] Address: [address] [place] [address] Performed By: #### 5 7021-8 ####[facility]CLIA [id number] [place] [address] WBC (Bld) [#/Vol] 6.80 10*3/uL Normal 3.70-11.00 [facility] Comment on above: Order Comment: Speci men Type: BLOOD SPECIMENOrdering Facility: [facility] Address: [address] [place] [address] Performed By: #### 5 7021-8 ####[facility] LABCLIA [id number] [place] [id number] PSA SerPl-mCncon 04-24-2023 Prostate specific Ag [Mass/Vol] 0.12 ng/mL Normal <2.60 [facility] Comment on above: Order Comment: Speci men Type: BLOOD SPECIMEN [facility] Address: [address] [place] [address] Result Comment: Tota l PSA test methodology used is the Electrochemiluminescence Immunoassay by [employer]. Total PSA values by differing methodologies cannot be interchanged. Performed By: #### 2 986-8 #### [facility] CLIA [id number] [address] [place] [address] [place] RAD - MISCon 04-24-2023 RAD - MISC [id number] Normal [facility] Testost SerPl-mCncon 023 Testosterone [Mass/Vol] 49 ng/dL Low 193-824 [facility] Comment on above: Order Comment: Speci men Type: BLOOD SPECIMENOrdering Facility: [facility] Address: [address] [place] [address] Result Comment: A te stosterone level in the 193-320 ng/dL range with associated clinical symptoms is considered low and may indicate hypogonadism (from CTJ 2010 363:123-135). Results >320 ng/dL are considered normal. Result rechecked. Performed By: #### 2 986-8 ####[facility] [id number] [address] [place] CNPJu 02-06-2023 CNPN Telephone (ArtBinderA) PABLO FELIX ([id number]) 1945 M Date Time Provider Department 02/06/23 MARCO A ESQUEDA During your visit today, we recorded the following information about you: Josie Saldaña RN 02/06/2023 10:23 AM Signed ----- Message [...] have it done at our office. Josie Saldaña RN 02/06/2023 10:26 AM Signed Left detailed message with this information for patient. Josie Saldaña RN Allergies As of Date: 02/06/2023 Noted [...] 24 hr tablet Take by mouth. - Atebccvuslnnn-Uyosqcmb-Rxmj in (MULTIVITAMIN 50 PLUS) tab Take 1 [...] prostate (HCC) [C61] 08/06/2014 Encounter Status:Closed by KRISTIEMARQUESJOSIE on 02/06/23 Normal [facility] GLYCOHEMOGLOBIN A1Con 2022 ADA RECOMMENDATION SEE BELOW Normal [facility] Comment on above: Result Comment: ADA RECOMMENDED LIMIT 4.0 - 6.0 ADA THERAPEUTIC TARGET < 7.0 ACTION SUGGESTED > 7.0 Performed By: #### D ATA1C #### [facility] [address] [place] [address] [address] Bharati Aguiar Glucose [Mass/Vol] 131 mg/dL Normal [facility] Comment on above: Performed By: #### D ATA1C #### [facility] [address] [place] [address] [address] Bharati Aguiar HbA1c (Bld) [Mass fraction] 6.2 % Normal 4.5-6.2 [facility] Comment on above: Performed By: #### D ATA1C #### [facility] [address] [place] [address] Dr. Bharati Aguiar XR CSPINE OBL FLEX_EXTon [...] CYNTHIA TORRES Date: 2022-07-21 15:52 Normal [facility] GLYCOHEMOGLOBIN A1Con 2021 ADA RECOMMENDATION SEE BELOW Normal [facility] Comment on above: Result Comment: ADA RECOMMENDED LIMIT 4.0 - 6.0 ADA THERAPEUTIC TARGET < 7.0 ACTION SUGGESTED > 7.0 Performed By: #### D ATA1C #### [facility] [address] [place] [address] Dr. Bharati Aguiar Glucose [Mass/Vol] 134 mg/dL Normal [facility] Comment on above: Performed By: #### D ATA1C #### [facility] [address] [place] [address] [address] Bharati Aguiar HbA1c (Bld) [Mass fraction] 6.3 % Critically high 4.5-6.2 [facility] Comment on above: Performed By: #### D ATA1C #### [facility] [address] [place] [address] [address] Bharati Aguiar ECHOCARDIO M/2D COMPLETEon 1 ECHOCARDIO M/2D COMPLETE Patient: PABLO FELIX Exam Date: 04/27/2022 : 1945 Gender:M Ordering : LORA ENGLISH Admission #: [id number] Family : DR JAMAR FALL D.Trang Order #: [id number] CLICK HERE TO VIEW EXAM ECHOCARDIOGRAM REPORT [...] Carreon M.D. on 04/28/2022 at 19:09 Normal [facility] GLYCOHEMOGLOBIN A1Con 2021 ADA RECOMMENDATION SEE BELOW Normal [facility] Comment on above: Result Comment: ADA RECOMMENDED LIMIT 4.0 - 6.0 ADA THERAPEUTIC TARGET < 7.0 ACTION SUGGESTED > 7.0 Performed By: #### D ATA1C ####[facility] [address] [place], [place] [address]Hn. Bharati Aguiar Glucose [Mass/Vol] 137 mg/dL Normal [facility] Comment on above: Performed By: #### D ATA1C ####[facility] [address] [place], [place] [address]Sy. Bharati Aguiar HbA1c (Bld) [Mass fraction] 6.4 % Critically high 4.5-6.2 [facility] Comment on above: Performed By: #### D ATA1C ####[facility] [address] [place], [place] [address]Uo. Bharati Aguiar NM BONE SC WH BODYon [...] it was not obviously included in the mvzik-zx-jesn of the recent CT. There are foci [...] DE JESUS Date: 2021-11-06 12:45 Normal [facility] CT CHEST W CONon 11-05-2021 [...] LUIZ UMANA Date: 2021-11-05 14:08 Normal [facility] PROF 14(COMP METB)on 022 Albumin [Mass/Vol] 3.6 g/dL Normal 3.4-5.0 [facility] Comment on above: Performed By: #### C MP #### [facility] [address] [place] [address] Dr. Bharati Aguiar Albumin/Globulin [Mass ratio] 1.1 {ratio} Normal [facility] Comment on above: Performed By: #### C MP #### [facility] [address] [place] [address] Dr. Bharati Aguiar ALP [Catalytic activity/Vol] 89 U/L Normal 46-116 [facility] Comment on above: Performed By: #### C MP #### [facility] [address] [place] [address] Dr. Bharati Aguiar ALT [Catalytic activity/Vol] 33 U/L Normal 16-63 [facility] Comment on above: Performed By: #### C MP #### [facility] [address] [place] [address] Dr. Bharati Aguiar Anion gap [Moles/Vol] 12.1 mmol/L Normal [facility] Comment on above: Performed By: #### C MP #### [facility] [address] [place] [address] Dr. Bharati Aguiar AST [Catalytic activity/Vol] 19 U/L Normal 15-37 [facility] Comment on above: Performed By: #### C MP #### [facility] [address] [place] [address] Dr. Bharati Aguiar Bilirubin [Mass/Vol] 0.9 mg/dL Normal 0.2-1.3 [facility] Comment on above: Performed By: #### C MP #### [facility] [address] [place] [address] Dr. Bharati Aguiar Calcium [Mass/Vol] 8.8 mg/dL Normal 8.5-10.1 [facility] Comment on above: Performed By: #### C MP #### [facility] [address] [place] [address] Dr. Bharati Aguiar Chloride [Moles/Vol] 103 mmol/L Normal 98-107 [facility] Comment on above: Performed By: #### C MP #### [facility] [address] [place] [address] [address] Bharati Aguiar CO2 [Moles/Vol] 28.6 mmol/L Normal 22.0-30.0 [facility] Comment on above: Performed By: #### C MP #### [facility] [address] [place] [address] [address] Bharati Aguiar Creatinine [Mass/Vol] 0.85 mg/dL Normal 0.66-1.25 [facility] Comment on above: Performed By: #### C MP #### [facility] [address] [place] [address] [address] Bharati Aguiar EGFR-AF MOLDOVAN >60 Normal >=60 [facility] Comment on above: Performed By: #### C MP #### [facility] [address] [place] [address] [address] Bharati Aguiar EGFR-NON AF MOLDOVAN >60 Normal >=60 [facility] Comment on above: Performed By: #### C MP #### [facility] [address] [place] [address] [address] Bharati Aguiar Globulin (S) [Mass/Vol] 3.4 g/dL Normal [facility] Comment on above: Performed By: #### C MP #### [facility] [address] [place] [address] Dr. Bharati Aguiar Glucose [Mass/Vol] 127 mg/dL Critically high 74-106 [facility] Comment on above: Performed By: #### C MP #### [facility] [address] [address] [address] Bhaarti Aguiar Potassium [Moles/Vol] 4.7 mmol/L Normal 3.4-5.0 [facility] Comment on above: Performed By: #### C MP #### [facility] [address] [place] [address] Dr. Bharati Aguiar Protein [Mass/Vol] 7.0 g/dL Normal 6.1-8.2 [facility] Comment on above: Performed By: #### C MP #### [facility] [address] [address] [address] Bharati Aguiar Sodium [Moles/Vol] 139 mmol/L Normal 137-145 [facility] Comment on above: Performed By: #### C MP #### [facility] [address] [place], [place] [address] Dr. Bharati Aguiar Urea nitrogen [Mass/Vol] 18.0 mg/dL Normal 7.0-18.0 [facility] Comment on above: Performed By: #### C MP #### [facility] [address] [address] [address] Bharati Aguiar Urea nitrogen/Creatinin e [Mass ratio] 21.2 mg/mg Normal [facility] Comment on above: Performed By: #### C MP #### [facility] [address] [address] [address] Bharati Aguiar Vital Signs Date Time Vital Sign Value Performing Clinician Facility 03-26-2024 08:37-0400 Body height 168.91 cm [facility] 03-26-2024 08:37-0400 Body mass index (BMI) [Ratio] 33 kg/m2 [facility] 03-26-2024 08:37-0400 Body weight 94.12 kg [facility] 03-26-2024 08:37-0400 Diastolic blood pressure 80 mm[Hg] [facility] 03-26-2024 08:37-0400 Heart rate 52 /min [facility] 03-26-2024 08:37-0400 Respiratory rate 12 /min [facility] 03-26-2024 08:37-0400 Systolic blood pressure 130 mm[Hg] [facility] 02-02-2024 11:06-0400 Body height 167.6 cm Lynne Alarcon APRN.ANIMAL STUNNER Work Phone: [facility] 02-02-2024 11:06-0400 Body mass index (BMI) [Ratio] 33.36 kg/m2 Lynne Alarcon APRN.CNP Work Phone: [facility] 02-02-2024 11:06-0400 Body temperature 97.3 [degF] Lynne Alarcon DESIGN ENGINEER AGRICULTURAL EQUIPMENT.ANIMAL STUNNER Work Phone: [facility] 02-02-2024 11:06-0400 Body weight 93.7 kg Lynne Alarcon DESIGN ENGINEER AGRICULTURAL EQUIPMENT.ANIMAL STUNNER Work Phone: [facility] 02-02-2024 11:06-0400 Diastolic blood pressure 54 mm[Hg] Lynne Gross DESIGN ENGINEER AGRICULTURAL EQUIPMENT.ANIMAL STUNNER Work Phone: [facility] 02-02-2024 11:06-0400 Heart rate 52 /min Lynne Alarcon DESIGN ENGINEER AGRICULTURAL EQUIPMENT.ANIMAL STUNNER Work Phone: [facility] 02-02-2024 11:06-0400 Respiratory rate 16 /min Lynne Alarcon DESIGN ENGINEER AGRICULTURAL EQUIPMENT.ANIMAL STUNNER Work Phone: [facility] 02-02-2024 11:06-0400 SaO2% (BldA) [Mass fraction] 98 % Lynne Alarcon DESIGN ENGINEER AGRICULTURAL EQUIPMENT.ANIMAL STUNNER Work Phone: [facility] 02-02-2024 11:06-0400 Systolic blood pressure 137 mm[Hg] Lynne Alarcon DESIGN ENGINEER AGRICULTURAL EQUIPMENT.ANIMAL STUNNER Work Phone: [facility] 11-23-2023 08:38-0400 Body height 168.91 cm [facility] 11-23-2023 08:38-0400 Body mass index (BMI) [Ratio] 33.2 kg/m2 [facility] 11-23-2023 08:38-0400 Body weight 94.8 kg [facility] 11-23-2023 08:38-0400 Diastolic blood pressure 69 mm[Hg] [facility] 11-23-2023 08:38-0400 Heart rate 48 /min [facility] 11-23-2023 08:38-0400 Respiratory rate 12 /min [facility] 11-23-2023 08:38-0400 Systolic blood pressure 130 mm[Hg] [facility] 11-02-2023 09:14-0400 Body height 167.6 cm Christo Howard DESIGN ENGINEER AGRICULTURAL EQUIPMENT.ANIMAL STUNNER Work Phone: [facility] 11-02-2023 09:14-0400 Body temperature 97.81 [degF] Christo Howard APRN.ANIMAL STUNNER Work Phone: [facility] 11-02-2023 09:14-0400 Body weight 92.9 kg Christo Howard APRN.ANIMAL STUNNER Work Phone: [facility] 11-02-2023 09:14-0400 Diastolic blood pressure 44 mm[Hg] Christo Howard APRN.ANIMAL STUNNER Work Phone: [facility] 11-02-2023 09:14-0400 Heart rate 56 /min Christo Howard APRN.ANIMAL STUNNER Work Phone: [facility] 11-02-2023 09:14-0400 Respiratory rate 16 /min Christo Howard APRN.ANIMAL STUNNER Work Phone: [facility] 11-02-2023 09:14-0400 SaO2% (BldA) [Mass fraction] 97 % Christo Howard APRN.ANIMAL STUNNER Work Phone: [facility] 11-02-2023 09:14-0400 Systolic blood pressure 123 mm[Hg] Christo Howard APRN.ANIMAL STUNNER Work Phone: [facility] 10-20-2023 09:05-0400 Blood Pressure Location Anthony SCRUGGS [facility] 10-20-2023 09:05-0400 Diastolic blood pressure 64 mm[Hg] Anthony SCRUGGS [facility] 10-20-2023 09:05-0400 Heart rate 53 /min Anthony SCRUGGS [facility] 10-20-2023 09:05-0400 Respiratory rate 16 /min Anthony SCRUGGS [facility] 10-20-2023 09:05-0400 Systolic blood pressure 110 mm[Hg] Anthony SCRUGGS [facility] 09-12-2023 14:13-0500 Body height 168.91 cm [facility] 09-12-2023 14:13-0500 Body mass index (BMI) [Ratio] 33.4 kg/m2 [facility] 09-12-2023 14:13-0500 Body weight 95.42 kg [facility] 09-12-2023 14:13-0500 Diastolic blood pressure 84 mm[Hg] [facility] 09-12-2023 14:13-0500 Heart rate 56 /min [facility] 09-12-2023 14:13-0500 Respiratory rate 12 /min [facility] 09-12-2023 14:13-0500 Systolic blood pressure 143 mm[Hg] [facility] 08-24-2023 08:30-0500 Body height 168.91 cm Jamar Ball Other [facility] [employer] Other 08-24-2023 08:30-0500 Body mass index (BMI) [Ratio] 34.08 kg/m2 Jamar Ball Other [facility] [employer] Other 08-24-2023 08:30-0500 Body weight 97.25 kg Jamar Ball Other [facility] [employer] Other 08-24-2023 08:30-0500 Diastolic blood pressure 81 mm[Hg] Jamar Ball Other [facility] [employer] Other 08-24-2023 08:30-0500 Respiratory rate 12 /min Jamar Ball Other [facility] [employer] Other 08-24-2023 08:30-0500 Systolic blood pressure 125 mm[Hg] Jamar Ball Other [employer] Other 05-30-2023 15:00-0500 Body height 168.91 cm Jamar Ball Other [facility] [employer] Other 05-30-2023 15:00-0500 Body mass index (BMI) [Ratio] 32.84 kg/m2 Jamar Ball Other [employer] Other 05-30-2023 15:00-0500 Body weight 93.71 kg Jamar Ball Other [employer] Other 05-30-2023 15:00-0500 Diastolic blood pressure 66 mm[Hg] Jamar Ball Other [employer] Other 05-30-2023 15:00-0500 Respiratory rate 12 /min Jamar Ball Other [employer] Other 05-30-2023 15:00-0500 Systolic blood pressure 141 mm[Hg] Jamar Ball Other [employer] Other 05-01-2023 09:45-0400 Body height 168.91 cm Jamar Ball Other [employer] Other 05-01-2023 09:45-0400 Body mass index (BMI) [Ratio] 32.14 kg/m2 Jamar Ball Other [employer] Other 05-01-2023 09:45-0400 Body weight 91.72 kg Jamar Ball Other [employer] Other 05-01-2023 09:45-0400 Diastolic blood pressure 62 mm[Hg] Jamar Ball Other [employer] Other 05-01-2023 09:45-0400 Respiratory rate 12 /min Jamar Ball Other [employer] Other 05-01-2023 09:45-0400 Systolic blood pressure 129 mm[Hg] Jamar Ball Other [employer] Other 04-27-2023 09:23-0400 Diastolic blood pressure 49 mm[Hg] Christo Howard APRN.ANIMAL STUNNER Work Phone: [facility] 04-27-2023 09:23-0400 Heart rate 50 /min Christo Howard APRN.ANIMAL STUNNER Work Phone: [facility] 04-27-2023 09:23-0400 Systolic blood pressure 141 mm[Hg] Christo Howard APRN.ANIMAL STUNNER Work Phone: [facility] 04-27-2023 09:20-0400 Body height 167.6 cm Christo Howard APRN.ANIMAL STUNNER Work Phone: [facility] 04-27-2023 09:20-0400 Body temperature 97 [degF] Christo Howard APRN.ANIMAL STUNNER Work Phone: [facility] 04-27-2023 09:20-0400 Body weight 92.53 kg Christo Howard APRN.ANIMAL STUNNER Work Phone: [facility] 04-27-2023 09:20-0400 Respiratory rate 16 /min Christo Howard APRN.ANIMAL STUNNER Work Phone: [facility] 04-27-2023 09:20-0400 SaO2% (BldA) [Mass fraction] 100 % Christo Howard APRN.ANIMAL STUNNER Work Phone: [facility] 04-17-2023 08:45-0400 Blood Pressure Location Anthony SCRUGGS [facility] 04-17-2023 08:45-0400 Diastolic blood pressure 68 mm[Hg] Anthony SCRUGGS [facility] 04-17-2023 08:45-0400 Heart rate 62 /min Anthony SCRUGGS [facility] 04-17-2023 08:45-0400 Respiratory rate 16 /min Anthony SCRUGGS [facility] 04-17-2023 08:45-0400 Systolic blood pressure 130 mm[Hg] Anthony SCRUGGS [facility] 04-05-2023 13:45-0400 Body height 168.91 cm Jamar Ball Other [employer] Other 04-05-2023 13:45-0400 Body mass index (BMI) [Ratio] 32.46 kg/m2 Jamar Ball Other [employer] Other 04-05-2023 13:45-0400 Body weight 92.63 kg Jamar Ball Other [employer] Other 04-05-2023 13:45-0400 Diastolic blood pressure 67 mm[Hg] Jamar Ball Other [employer] Other 04-05-2023 13:45-0400 Respiratory rate 12 /min Jamar Ball Other [employer] Other 04-05-2023 13:45-0400 Systolic blood pressure 109 mm[Hg] Jamar Ball Other [employer] Other 03-15-2023 08:45-0400 Body height 168.91 cm Jamar Ball Other [employer] Other 03-15-2023 08:45-0400 Body mass index (BMI) [Ratio] 32.81 kg/m2 Jamar Ball Other [employer] Other 03-15-2023 08:45-0400 Body weight 93.62 kg Jamar Ball Other [employer] Other 03-15-2023 08:45-0400 Diastolic blood pressure 69 mm[Hg] Jamar Ball Other [employer] Other 03-15-2023 08:45-0400 Respiratory rate 12 /min Jamar Fall Other [employer] Other 03-15-2023 08:45-0400 Systolic blood pressure 131 mm[Hg] Jamar Fall Other [employer] Other 02-02-2023 09:32-0400 Body height 167.6 cm Marco A Esqueda MD Work Phone: [facility] 02-02-2023 09:32-0400 Body temperature 97.2 [degF] Marco A Esqueda MD Work Phone: [facility] 02-02-2023 09:32-0400 Body weight 96.62 kg Marco A Esqueda MD Work Phone: [facility] 02-02-2023 09:32-0400 Diastolic blood pressure 43 mm[Hg] Marco A Esqueda MD Work Phone: [facility] 02-02-2023 09:32-0400 Heart rate 50 /min Marco A Esqueda MD Work Phone: [facility] 02-02-2023 09:32-0400 Respiratory rate 16 /min Marco A Esqueda MD Work Phone: [facility] 02-02-2023 09:32-0400 SaO2% (BldA) [Mass fraction] 97 % Marco A Esqueda MD Work Phone: [facility] 02-02-2023 09:32-0400 Systolic blood pressure 131 mm[Hg] Marco A Esqueda MD Work Phone: [facility] 11-10-2022 09:30-0400 Body height 167.6 cm Christo Howard APRN.ANIMAL STUNNER Work Phone: [facility] 11-10-2022 09:30-0400 Body temperature 97.11 [degF] Christo Howard APRN.ANIMAL STUNNER Work Phone: [facility] 11-10-2022 09:30-0400 Body weight 96.44 kg Christo Howard DESIGN ENGINEER AGRICULTURAL EQUIPMENT.ANIMAL STUNNER Work Phone: [facility] 11-10-2022 09:30-0400 Diastolic blood pressure 68 mm[Hg] Christo Howard DESIGN ENGINEER AGRICULTURAL EQUIPMENT.ANIMAL STUNNER Work Phone: [facility] 11-10-2022 09:30-0400 Heart rate 54 /min Crhisto Howard DESIGN ENGINEER AGRICULTURAL EQUIPMENT.ANIMAL STUNNER Work Phone: [facility] 11-10-2022 09:30-0400 Respiratory rate 16 /min Christo Howard DESIGN ENGINEER AGRICULTURAL EQUIPMENT.ANIMAL STUNNER Work Phone: [facility] 11-10-2022 09:30-0400 SaO2% (BldA) [Mass fraction] 98 % Christo Howard DESIGN ENGINEER AGRICULTURAL EQUIPMENT.ANIMAL STUNNER Work Phone: [facility] 11-10-2022 09:30-0400 Systolic blood pressure 134 mm[Hg] Christo Howard DESIGN ENGINEER AGRICULTURAL EQUIPMENT.ANIMAL STUNNER Work Phone: [facility] 09-16-2022 08:30-0500 Body height 168.91 cm Jamar Ball Other [employer] Other 09-16-2022 08:30-0500 Body mass index (BMI) [Ratio] 33.16 kg/m2 Jamar Ball Other [employer] Other 09-16-2022 08:30-0500 Body weight 94.62 kg Jamar Ball Other [employer] Other 09-16-2022 08:30-0500 Diastolic blood pressure 78 mm[Hg] Jamar Ball Other [employer] Other 09-16-2022 08:30-0500 Respiratory rate 12 /min Jamar Ball Other [employer] Other 09-16-2022 08:30-0500 Systolic blood pressure 116 mm[Hg] Jamar Ball Other [employer] Other 09-09-2022 08:30-0500 Body height 168.91 cm Jamar Ball Other [employer] Other 09-09-2022 08:30-0500 Body mass index (BMI) [Ratio] 33.45 kg/m2 Jamar Ball Other [employer] Other 09-09-2022 08:30-0500 Body weight 95.44 kg Jamar Ball Other [employer] Other 09-09-2022 08:30-0500 Diastolic blood pressure 76 mm[Hg] Jamar Ball Other [employer] Other 09-09-2022 08:30-0500 Respiratory rate 12 /min Jamar Ball Other [employer] Other 09-09-2022 08:30-0500 Systolic blood pressure 118 mm[Hg] Jamar Ball Other [employer] Other 09-09-2022 07:30-0500 Body height 168.91 cm Jamar Ball Other [employer] Other 09-09-2022 07:30-0500 Body mass index (BMI) [Ratio] 33.45 kg/m2 Jamar Ball Other [employer] Other 09-09-2022 07:30-0500 Body weight 95.44 kg Jamar Ball Other [employer] Other 09-09-2022 07:30-0500 Diastolic blood pressure 76 mm[Hg] Jamar Ball Other [employer] Other 02-24-2023 07:30-0500 Respiratory rate 12 /min Jamar Ball Other [employer] Other 09-09-2022 07:30-0500 Systolic blood pressure 118 mm[Hg] Jamar Ball Other [employer] Other 08-11-2022 09:24-0500 Body height 167.6 cm Marco A Esqueda MD Work Phone: [facility] 08-11-2022 09:24-0500 Body temperature 97 [degF] Marco A Esqueda MD Work Phone: [facility] 08-11-2022 09:24-0500 Body weight 96.44 kg Marco A Esqueda MD Work Phone: [facility] 08-11-2022 09:24-0500 Diastolic blood pressure 56 mm[Hg] Marco A Esqueda MD Work Phone: [facility] 08-11-2022 09:24-0500 Heart rate 53 /min Marco A Esqueda MD Work Phone: [facility] 08-11-2022 09:24-0500 Respiratory rate 16 /min Marco A Esqueda MD Work Phone: [facility] 08-11-2022 09:24-0500 SaO2% (BldA) [Mass fraction] 97 % Marco A Esqueda MD Work Phone: [facility] 08-11-2022 09:24-0500 Systolic blood pressure 129 mm[Hg] Marco A Esqueda MD Work Phone: [facility] 07-21-2022 15:30-0500 Body height 168.91 cm Jamar Ball Other [employer] Other 07-21-2022 15:30-0500 Body mass index (BMI) [Ratio] 34.18 kg/m2 Jamar Ball Other [employer] Other 07-21-2022 15:30-0500 Body weight 97.52 kg Jamar Ball Other [facility] [employer] Other 07-21-2022 15:30-0500 Diastolic blood pressure 76 mm[Hg] Jamar Ball Other [facility] [employer] Other 07-21-2022 15:30-0500 Respiratory rate 16 /min Jamar Ball Other [facility] [employer] Other 07-21-2022 15:30-0500 Systolic blood pressure 118 mm[Hg] Jamar Ball Other [facility] [employer] Other 05-13-2022 09:07-0400 Blood Pressure Location Anthonycindy SCRUGGS [facility] 05-13-2022 09:07-0400 Diastolic blood pressure 72 mm[Hg] Anthony SCRUGGS [facility] 05-13-2022 09:07-0400 Heart rate 55 /min Anthonycindy SCRUGGS [facility] 05-13-2022 09:07-0400 Respiratory rate 16 /min Anthonycindy SCRUGGS [facility] 05-13-2022 09:07-0400 Systolic blood pressure 108 mm[Hg] Anthony SCRUGGS [facility] 05-12-2022 10:41-0400 Body temperature 97.81 [degF] LUAN Khan MD Work Phone: [facility] 05-12-2022 10:41-0400 Body weight 95.07 kg LUAN Khan MD Work Phone: [facility] 05-12-2022 10:41-0400 Diastolic blood pressure 42 mm[Hg] LUAN Khan MD Work Phone: [facility] 05-12-2022 10:41-0400 Heart rate 51 /min LUAN Khan MD Work Phone: [facility] 05-12-2022 10:41-0400 Respiratory rate 18 /min LUAN Khan MD Work Phone: [facility] 05-12-2022 10:41-0400 SaO2% (BldA) [Mass fraction] 99 % LUAN Khan MD Work Phone: [facility] 05-12-2022 10:41-0400 Systolic blood pressure 134 mm[Hg] LUAN Khan MD Work Phone: [facility] 02-17-2022 09:36-0400 Body height 167.6 cm Marco A Esqueda MD Work Phone: [facility] 02-17-2022 09:36-0400 Body temperature 97.9 [degF] Marco A Esqueda MD Work Phone: [facility] 02-17-2022 09:36-0400 Body weight 97.07 kg Marco A Esqueda MD Work Phone: [facility] 02-17-2022 09:36-0400 Diastolic blood pressure 58 mm[Hg] Marco A Esqueda MD Work Phone: [facility] 02-17-2022 09:36-0400 Heart rate 63 /min Marco A Esqueda MD Work Phone: [facility] 02-17-2022 09:36-0400 Respiratory rate 16 /min Marco A Esqueda MD Work Phone: [facility] 02-17-2022 09:36-0400 SaO2% (BldA) [Mass fraction] 99 % Marco A Esqueda MD Work Phone: [facility] 02-17-2022 09:36-0400 Systolic blood pressure 133 mm[Hg] Marco A Esqueda MD Work Phone: [facility] 11-18-2021 10:50-0400 Body temperature 97.7 [degF] [facility] Work Phone: [facility] 11-18-2021 10:50-0400 Diastolic blood pressure 63 mm[Hg] [facility] Work Phone: [facility] 11-18-2021 10:50-0400 Heart rate 60 /min [facility] Work Phone: [facility] 11-18-2021 10:50-0400 Respiratory rate 18 /min [facility] Work Phone: [facility] 11-18-2021 10:50-0400 SaO2% (BldA) [Mass fraction] 95 % [facility] Work Phone: [facility] 11-18-2021 10:50-0400 Systolic blood pressure 139 mm[Hg] [facility] Work Phone: [facility] 11-11-2021 13:58-0400 Body height 167.6 cm Marco A Esqueda MD Work Phone: [facility] 11-11-2021 13:58-0400 Body temperature 97.39 [degF] Marco A Esqueda MD Work Phone: [facility] 11-11-2021 13:58-0400 Body weight 98.97 kg Marco A Esqueda MD Work Phone: [facility] 11-11-2021 13:58-0400 Diastolic blood pressure 54 mm[Hg] Marco A Esqueda MD Work Phone: [facility] 11-11-2021 13:58-0400 Heart rate 68 /min Marco A Esqueda MD Work Phone: [facility] 11-11-2021 13:58-0400 Respiratory rate 16 /min Marco A Esqueda MD Work Phone: [facility] 11-11-2021 13:58-0400 SaO2% (BldA) [Mass fraction] 98 % Marco A Esqueda MD Work Phone: [facility] 11-11-2021 13:58-0400 Systolic blood pressure 130 mm[Hg] Marco A Esqueda MD Work Phone: [facility] 11-08-2021 13:03-0400 Blood Pressure Location Anthony SCRUGGS [facility] 11-08-2021 13:03-0400 Diastolic blood pressure 60 mm[Hg] Anthony [facility]UGGS [facility] 11-08-2021 13:03-0400 Heart rate 61 /min Anthony SCRUGGS [facility] 11-08-2021 13:03-0400 Systolic blood pressure 135 mm[Hg] Anthony SCRUGGS [facility] Encounters Encounter Date Encounter Type Care Provider Facility Start: 10-07-2024 ambulatory Anthony SCRUGGS Facili ty:[facility] Start: 04-19-2024 End: 04-19-2024 ambulatory Anthony SCRUGGS Facility:[facility] Start: 04-01-2024 End: 04-01-2024 Refill Marco A Esqueda MD Work Phone: Hematology/Oncology Comment on above: Refill Request Start: 04-01-2024 End: 04-01-2024 Refill Aida Luo [facility] Work Phone: [id number] Comment on above: Refill Request Start: 03-29-2024 Encounter for preprocedural cardiovascular examination [facility] Start: 03-29-2024 End: 04-01-2024 ambulatory [facility] Start: 03-29-2024 End: 04-01-2024 Encounter for other preprocedural examination [facility] Start: 03-29-2024 End: 04-01-2024 Encounter for preprocedural cardiovascular examination LORA ENGLISH [facility] Start: 03-26-2024 End: 03-26-2024 ambulatory [facility] Work Phone: Start: 03-26-2024 End: 03-26-2024 Patient encounter procedure [facility] Work Phone: Start: 02-29-2024 End: 02-29-2024 ambulatory LAURAJORGE FRANCO Not Available Start: 02-26-2024 End: 02-26-2024 ambulatory LONG JUÁREZJORGE Not Available Start: 02-02-2024 End: 02-02-2024 ambulatory [facility] Work Phone: Hematology/Oncology Comment on above: Malignant neoplasm o f prostate (HCC) (Primary Dx) Start: 02-02-2024 End: 02-02-2024 Patient encounter procedure Lynne Alarcon APRN.ANIMAL STUNNER Work Phone: Hematology/Oncology Comment on above: Malignant neoplasm o f prostate (HCC) (Primary Dx) Start: 01-25-2024 End: 01-25-2024 ambulatory JAMAR FALL Facility:[facility] Start: 01-25-2024 Non-patient / Non-visit 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, unspecified vessel or lesion type; Type 2 diabetes mellitus without complication, without long-term current use of insulin (HCC); Lesion of skin of right ear; Abdominal discomfort Start: 11-02-2023 End: 11-02-2023 Patient encounter procedure Christo Howard DESIGN ENGINEER AGRICULTURAL EQUIPMENT.ANIMAL STUNNER Work Phone: [facility] Start: 10-30-2023 End: 10-30-2023 ambulatory JAMAR FALL Facility:[facility] Start: 10-30-2023 Non-patient / Non-visit [facility] [place] Work Phone: Start: 10-20-2023 End: 10-20-2023 ambulatory Anthony SCRUGGS Facility:[facility] Start: 10-20-2023 End: 10-20-2023 Patient encounter procedure Anthony SCRUGGS [facility] Start: 10-09-2023 Non-patient / Non-visit [facility] Work Phone: Start: 09-28-2023 End: 09-28-2023 ambulatory PABLO CHRISTINA Not Available Start: 09-12-2023 End: 09-12-2023 Patient encounter procedure [facility] Work Phone: Start: 09-06-2023 Non-patient / Non-visit [facility] Work Phone: Start: 08-28-2023 Bamboo flowsheet Long A Fel ter DESIGN ENGINEER AGRICULTURAL EQUIPMENT-ANIMAL STUNNER Work Phone: [facility] Start: 08-28-2023 Bamboo flowsheet [address] A [address] ter DESIGN ENGINEER AGRICULTURAL EQUIPMENT-ANIMAL STUNNER Work Phone: [facility] Start: 08-28-2023 End: 08-28-2023 Patient encounter procedure Long Boo DESIGN ENGINEER AGRICULTURAL EQUIPMENT-ANIMAL STUNNER Work Phone: [facility] Comment on above: Neoplasm of unspecif ied behavior of bone, soft tissue, and skin; Actinic keratosis Start: 08-28-2023 End: 08-28-2023 ambulatory LONG BOO Not Available Start: 08-24-2023 End: 08-24-2023 ambulatory Jamar Fall Other [employer] Other Start: 08-24-2023 Patient encounter procedure Jamar Fall [facility] Start: 08-04-2023 End: 08-04-2023 ambulatory Jamar Fall Other [employer] Other Start: 08-04-2023 Telephone encounter Jamar EDMONDS [facility] Start: 08-03-2023 End: 08-03-2023 ambulatory JAMAR FALL Facility:[facility] Start: 07-27-2023 End: 07-27-2023 ambulatory JAMAR E JUAN DAVID Facility:[facility] Start: 06-22-2023 End: 06-22-2023 ambulatory AB [facility] Start: 06-05-2023 Telephone encounter Jamar EDMONDS [facility] Start: 06-05-2023 End: 06-05-2023 ambulatory EMELINA LOUIS [employer] Other Start: 05-30-2023 End: 05-30-2023 ambulatory Jamar Fall Other [employer] Other Start: 05-30-2023 Office outpatient vi sit 15 minutes Jamar Fall [facility] Start: 05-01-2023 End: 05-01-2023 ambulatory Jamar Fall Other [employer] Other Start: 05-01-2023 Office outpatient vi sit 15 minutes Jamar Fall [facility] Start: 04-27-2023 Telephone encounter Jamar EDMONDS [facility] Start: 04-27-2023 End: 04-27-2023 ambulatory Lab/Port Himanshu Ariella Work Phone: Hematology/Oncology Comment on above: Malignant neoplasm o f prostate (HCC) (Primary Dx) Malignant neoplasm o f prostate (HCC) (Primary Dx); 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, unspecified vessel or lesion type; Essential hypertension; Type 2 diabetes mellitus without complication, without long-term current use of insulin (HCC) Start: 04-27-2023 End: 04-27-2023 Patient encounter procedure Christo Duke REYES Work Phone: [facility] Start: 04-25-2023 End: 04-25-2023 ambulatory Jamar Fall Other [employer] Other Start: 04-25-2023 Telephone encounter Jamar Fall [facility] Start: 04-24-2023 End: 04-24-2023 ambulatory JAMAR FALL Facility:[facility] Start: 04-18-2023 End: 04-18-2023 ambulatory Jamar Fall Other [employer] Other Start: 04-18-2023 Telephone encounter Jamar Fall [facility] Start: 04-17-2023 End: 04-17-2023 Patient encounter procedure Anthony SCRUGGS [facility] Start: 04-12-2023 End: 04-12-2023 ambulatory Jamar Fall Other [employer] Other Start: 04-12-2023 Telephone encounter Jamar Fall [facility] Start: 04-06-2023 End: 04-06-2023 ambulatory Jamar Fall Other [employer] Other Start: 04-06-2023 Telephone encounter Jamar Fall [facility] Start: 04-05-2023 End: 04-05-2023 ambulatory Jamar Fall Other [employer] Other Start: 04-05-2023 Office outpatient vi sit 15 minutes Jamar Fall [facility] Start: 04-05-2023 Telephone encounter Jamar Fall [facility] Start: 03-15-2023 End: 03-15-2023 ambulatory Jamar Fall Other [employer] Other Start: 03-15-2023 Office outpatient vi sit 25 minutes Jamar Fall [facility] Start: 02-05-2023 End: 02-05-2023 ambulatory Jamar Fall Other [employer] Other Start: 02-05-2023 Telephone encounter Jamar Fall [facility] Start: 02-02-2023 End: 02-02-2023 ambulatory Lab/Port Himanshu Bond Work Phone: Hematology/Oncology Comment on above: Malignant neoplasm o f prostate (HCC) (Primary Dx) Start: 02-02-2023 End: 02-02-2023 Patient encounter procedure Marco A Esqueda MD Work Phone: [facility] Start: 11-15-2022 End: 11-15-2022 ambulatory Jamar Fall Other [employer] Other Start: 11-15-2022 Encounter by [employer] Jamar Fall [facility] Start: 11-11-2022 End: 11-11-2022 ambulatory Jamar Fall Other [employer] Other Start: 11-11-2022 Encounter by [employer] Jamar Fall [facility] Start: 11-10-2022 End: 11-10-2022 ambulatory Lab/Port Himanshu Bond Work Phone: Hematology/Oncology Comment on above: Malignant neoplasm o f prostate (HCC) (Primary Dx) Malignant neoplasm o f prostate (HCC) (Primary Dx); 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 Facility: Start: 09-16-2022 End: 09-16-2022 ambulatory Jamar Fall Other [employer] Other Start: 09-16-2022 Office outpatient vi sit 15 minutes Jamar MENDIETA [facility] Start: 09-09-2022 End: 09-09-2022 ambulatory Jamar Fall Other [employer] Other Start: 09-09-2022 Patient encounter procedure Jamar MENDIETA [facility] Start: 09-05-2022 End: 09-06-2022 ambulatory NONE LISTED REQUEST Facility: Start: 08-11-2022 End: 08-11-2022 ambulatory Lab/Port Himanshu Bond Work Phone: Hematology/Oncology Comment on above: Malignant neoplasm o f prostate (HCC) (Primary Dx) Malignant neoplasm o f prostate (HCC) (Primary Dx); Bone metastasis (HCC); 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, unspecified vessel or lesion type; Essential hypertension; Type 2 diabetes mellitus without complication, without long-term current use of insulin (HCC) Start: 08-11-2022 End: 08-11-2022 Patient encounter procedure Marco A Esqueda MD Work Phone: [facility] Start: 07-21-2022 End: 07-22-[address] JAMAR FALL [employer] Other Start: 07-21-2022 Office outpatient vi sit 15 minutes Jamar Fall [facility] Start: 07-21-2022 Patient encounter procedure Jamar Fall [facility] Start: 07-21-2022 Telephone encounter Jamar EDMONDS [facility] Start: 05-27-2022 End: 05-28-2022 ambulatory NONE LISTED REQUEST Facility: Start: 05-13-2022 End: 05-13-2022 Patient encounter procedure Anthony SCRUGGS [facility] Start: 05-12-2022 End: 05-12-2022 Patient encounter procedure [...] procedure Marco A Esqueda MD Work Phone: [facility] Start: 01-25-2022 End: 01-26-[address] DE LISTED REQUEST Facility:[facility] Start: 12-06-2021 Telephone encounter Clementine steinberg RN Work Phone: Hematology/Oncology Comment on above: Care Coordination (R efill Question) Start: 11-18-2021 End: 11-18-2021 ambulatory Lab/Port Himanshu Bond Work Phone: Hematology/Oncology Comment on above: Malignant [...] encounter procedure Anthony SCRUGGS [facility] Start: 11-05-2021 End: 11-06-[address] MARCO A ESQUEDA Facility:[facility] Start: 11-04-2021 ambulatory Clementine lee RN Work Phone: Hematology/Oncology Comment on above: Oral Anti-cancer Age nt Education (Enzalutamide) Start: 11-04-2021 Telephone encounter Aida Coles [facility] Work Phone: Hematology/Oncology Comment on above: Medication [...] 07-22-2021 Adult health examination Bam Fall Other [employer] Other Procedures Date Procedure Procedure Detail Performing Clinician Start: 08-28-2023 CRYOTHERAPY SKIN LESION Long Boo DESIGN ENGINEER AGRICULTURAL EQUIPMENT-ANIMAL STUNNER Work Phone: Start: 08-28-2023 SKIN / NAIL BIOPSY Windy Boo DESIGN ENGINEER AGRICULTURAL EQUIPMENT-ANIMAL STUNNER Work Phone: Start: 10-25-[address] JESE FALL Comment on above: Performed By: #### P SAD #### [facility] [address], [place] [address] Dr[address] Bharati Aguiar Start: 05-05-[address] JESE FALL Comment on above: Performed By: #### P SAD ####[facility] [id number] [place], [place] [id number]. Bharati Aguiar Start: 02-16-2022 Adult depression scr [...] Author Start: 01-24-2027 Diabetes Screening Diabetes Screening [facility] Start: 10-29-2026 Diabetes Screening Diabetes Screening [facility] Start: 04-24-2026 Diabetes Screening Diabetes Screening [facility] Start: 02-02-2026 DIABETES SCREEN DIABETES SCREEN [facility] Start: 11-10-2025 DIABETES SCREEN DIABETES SCREEN [facility] Start: 08-11-2025 DIABETES SCREEN DIABETES SCREEN [facility] Start: 05-12-2025 DIABETES SCREEN DIABETES SCREEN [facility] Start: 02-17-2025 DIABETES SCREEN DIABETES SCREEN [facility] Start: 11-11-2024 DIABETES SCREEN DIABETES SCREEN [facility] Start: 05-09-2024 End: 05-09-2024 Follow-up encounter Hematology/Oncology Comment on above: 3 month lab follow up with xgeva inj Start: 05-07-2024 End: 05-07-2024 Patient encounter procedure 05/07/2024 9:00 AM EDT Office Visit [facility] [address] [place] [address] 3 month lab follow up with xgeva inj [facility] Comment on above: 3 month lab follow up with xgeva inj Start: 05-03-2024 End: 05-03-2024 Patient encounter procedure 05/03/2024 9:00 AM EDT Office Visit [facility] [address] [place] [address] 3 month lab follow up with xgeva inj [facility] Comment on above: 3 month lab follow up with xgeva inj Start: 04-29-2024 End: 07-29-2024 CBC W Auto Differential panel - Blood COMPLETE BLOOD COUNT AND DIFFERENTIAL Lab Routine Malignant neoplasm of prostate (HCC) Expected: 04/29/2024, Expires: 07/29/2024 [facility] Work Phone: Comment on above: Expected: 04/29/2024, Expires: Start: 04-29-2024 End: 07-29-2024 Comprehensive metabolic 2000 panel - Serum or Plasma COMPREHENSIVE METABOLIC PANEL Lab Routine Malignant neoplasm of prostate (HCC) Expected: 04/29/2024, Expires: 07/29/2024 [facility] Comment on above: Expected: 04/29/2024, Expires: Start: 04-29-2024 End: 07-29-2024 Prostate specific Ag [Mass/volume] in Serum or Plasma PROSTATE-SPECIFIC ANTIGEN DIAGNOSTIC Lab Routine Malignant neoplasm of prostate (HCC) Expected: 04/29/2024, Expires: 07/29/2024 [facility] Comment on above: Expected: 04/29/2024, Expires: Start: 03-17-2024 Covid-19 Vaccine ( season) Covid-19 Vaccine () [facility] Start: 03-17-2024 Influenza [facility] Start: 02-26-2024 End: 02-26-2024 Patient encounter procedure 02/26/2024 10:10 AM EDT Office Visit [facility] [address] [place] [address] Long Boo APRN-ANIMAL STUNNER [address] [place] [address] [facility] Start: 11-03-2023 End: 02-02-2024 CBC W Auto Differential panel - Blood COMPLETE BLOOD COUNT AND DIFFERENTIAL Lab Routine Malignant neoplasm of prostate (HCC) Essential hypertension 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, unspecified vessel or lesion type Type 2 diabetes mellitus without complication, without long-term current use of insulin (HCC) Lesion of skin of right ear Abdominal discomfort Expected: 11/03/2023, Expires: 02/02/2024 [facility] Work Phone: Comment on above: Expected: 11/03/2023, Expires: 4 Start: 11-03-2023 End: 02-02-2024 Comprehensive metabolic 2000 panel - Serum or Plasma COMPREHENSIVE METABOLIC PANEL Lab Routine Malignant neoplasm of prostate (HCC) Essential hypertension 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, unspecified vessel or lesion type Type 2 diabetes mellitus without complication, without long-term current use of insulin (HCC) Lesion of skin of right ear Abdominal discomfort Expected: 11/03/2023, Expires: 02/02/2024 [facility] Work Phone: Comment on above: Expected: 11/03/2023, Expires: 4 Start: 11-03-2023 End: 02-02-2024 Prostate specific Ag [Mass/volume] in Serum or Plasma PROSTATE-SPECIFIC ANTIGEN DIAGNOSTIC Lab Routine Malignant neoplasm of prostate (HCC) Essential hypertension 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, unspecified vessel or lesion type Type 2 diabetes mellitus without complication, without long-term current use of insulin (HCC) Lesion of skin of right ear Abdominal discomfort Expected: 11/03/2023, Expires: 02/02/2024 [facility] Work Phone: Comment on above: Expected: 11/03/2023, Expires: 4 Start: 08-28-2023 End: 08-28-2023 Patient encounter procedure 08/28/2023 11:25 AM EST Office Visit [facility] [address] [place] [id number] Long Boo APRN-ANIMAL STUNNER [address] [place] [address] Arrived [facility] Comment on above: Arrived Start: 07-28-2023 End: 09-27-2023 CBC W Auto Differential panel - Blood CBC + DIFF Lab Routine Malignant neoplasm of prostate (HCC) 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, unspecified vessel or lesion type Essential hypertension Type 2 diabetes mellitus without complication, without long-term current use of insulin (HCC) Expected: 07/28/2023, Expires: 09/27/2023 [facility] Work Phone: Comment on above: Expected: 07/28/2023, Expires: Start: 07-28-2023 End: 09-27-2023 Comprehensive metabolic 2000 panel - Serum or Plasma COMP METABOLIC PANEL Lab Routine Malignant neoplasm of prostate (HCC) 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, unspecified vessel or lesion type Essential hypertension Type 2 diabetes mellitus without complication, without long-term current use of insulin (HCC) Expected: 07/28/2023, Expires: 09/27/2023 [facility] Work Phone: Comment on above: Expected: 07/28/2023, Expires: Start: 07-28-2023 End: 09-27-2023 Prostate specific Ag [Mass/volume] in Serum or Plasma PSA/PROSTSPECAG DIAG Lab Routine Malignant neoplasm of prostate (HCC) 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, unspecified vessel or lesion type Essential hypertension Type 2 diabetes mellitus without complication, without long-term current use of insulin (HCC) Expected: 07/28/2023, Expires: 09/27/2023 [facility] Work Phone: Comment on above: Expected: 07/28/2023, Expires: Start: 07-17-2023 Advance Directive Discussion Advance Directive Discussion [facility] Start: 07-17-2023 Behavioral Health Screening Behavioral Health Screening [facility] Start: 06-19-2023 Urine microalbumin profile [facility] Start: 05-03-2023 End: 07-03-2023 Basic metabolic 2000 panel - Serum or Plasma BASIC METABOLIC PNL Lab Routine Malignant neoplasm of prostate (HCC) Expected: 05/03/2023 (Approximate), Expires: 07/03/2023 [facility] Work Phone: Comment on above: Expected: 05/03/2023 (Approximate), Expi res: 07/03/2023 Start: 05-03-2023 End: 07-03-2023 CBC W Auto Differential panel - Blood CBC + DIFF Lab Routine Malignant neoplasm of prostate (HCC) Expected: 05/03/2023 (Approximate), Expires: 07/03/2023 [facility] Work Phone: Comment on above: Expected: 05/03/2023 (Approximate), Expi res: 07/03/2023 Start: 05-03-2023 End: 07-03-2023 Prostate specific Ag [Mass/volume] in Serum or Plasma PSA/PROSTSPECAG DIAG Lab Routine Malignant neoplasm of prostate (HCC) Expected: 05/03/2023 (Approximate), Expires: 07/03/2023 [facility] Work Phone: Comment on above: Expected: 05/03/2023 (Approximate), Expi res: 07/03/2023 Start: 05-03-2023 End: 07-03-2023 Testosterone [Mass/volume] in Serum or Plasma TESTOSTERONE TOTAL Lab Routine Malignant neoplasm of prostate (HCC) Expected: 05/03/2023 (Approximate), Expires: 07/03/2023 [facility] Work Phone: Comment on above: Expected: 05/03/2023 (Approximate), Expi res: 07/03/2023 Start: 03-17-2023 Covid-19 Vaccine ( season) Covid-19 Vaccine () [facility] Start: 03-17-2023 Influenza vaccination [facility] Start: 02-16-2023 Adult depression screening assessment DEPRESSION SCREENING [facility] Start: 02-09-2023 End: 04-11-2023 CBC W Auto Differential panel - Blood CBC + DIFF Lab Routine Malignant neoplasm of prostate (HCC) 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, unspecified vessel or lesion type Essential hypertension Type 2 diabetes mellitus without complication, without long-term current use of insulin (HCC) Expected: 02/09/2023, Expires: 04/11/2023 [facility] Work Phone: Comment on above: Expected: 02/09/2023, Expires: Start: 02-09-2023 End: 04-11-2023 Comprehensive metabolic 2000 panel - Serum or Plasma COMP METABOLIC PANEL Lab Routine Malignant neoplasm of prostate (HCC) 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, unspecified vessel or lesion type Essential hypertension Type 2 diabetes mellitus without complication, without long-term current use of insulin (HCC) Expected: 02/09/2023, Expires: 04/11/2023 [facility] Work Phone: Comment on above: Expected: 02/09/2023, Expires: 3 Start: 02-09-2023 End: 04-11-2023 Prostate specific Ag [Mass/volume] in Serum or Plasma PSA/PROSTSPECAG DIAG Lab Routine Malignant neoplasm of prostate (HCC) 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, unspecified vessel or lesion type Essential hypertension Type 2 diabetes mellitus without complication, without long-term current use of insulin (HCC) Expected: 02/09/2023, Expires: 04/11/2023 [facility] Work Phone: Comment on above: Expected: 02/09/2023, Expires: 3 Start: 11-10-2022 Adult depression screening assessment DEPRESSION SCREENING [facility] Start: 08-22-2022 COVID-19 VACCINE (6 - Moderna series) COVID-19 VACCINE (6 - Moderna series) [facility] Start: 07-17-2022 ADVANCE DIRECTIVE DISCUSSION ADVANCE DIRECTIVE DISCUSSION [facility] Start: 07-17-2022 DEPRESSION ASSESSMENT DEPRESSION ASSESSMENT [facility] Start: 05-03-2022 Adult depression screening assessment DEPRESSION SCREENING [facility] Start: 05-03-2022 End: 07-03-2022 CBC W Auto Differential panel - Blood CBC + DIFF Lab Routine Malignant neoplasm of prostate (HCC) Expected: 05/03/2022, Expires: 07/03/2022 [facility] Work Phone: Comment on above: Expected: 05/03/2022, Expires: 2 Start: 05-03-2022 End: 07-03-2022 Comprehensive metabolic 2000 panel - Serum or Plasma COMP METABOLIC PANEL Lab Routine Malignant neoplasm of prostate (HCC) Expected: 05/03/2022, Expires: 07/03/2022 [facility] Work Phone: Comment on above: Expected: 05/03/2022, Expires: 2 Start: 05-03-2022 End: 07-03-2022 Prostate specific Ag [Mass/volume] in Serum or Plasma PSA/PROSTSPECAG DIAG Lab Routine Malignant neoplasm of prostate (HCC) Expected: 05/03/2022, Expires: 07/03/2022 [facility] Work Phone: Comment on above: Expected: 05/03/2022, Expires: 2 Start: 03-17-2022 Influenza vaccination [facility] Start: 11-02-2021 End: 01-02-2022 CBC W Auto Differential panel - Blood CBC + DIFF Lab Routine Malignant neoplasm of prostate (HCC) Expected: 11/02/2021, Expires: 01/02/2022 [facility] Work Phone: Comment on above: Expected: 11/02/2021, Expires: 2 Start: 11-02-2021 End: 01-02-2022 Comprehensive metabolic 2000 panel - Serum or Plasma COMP METABOLIC PANEL Lab Routine Malignant neoplasm of prostate (HCC) Expected: 11/02/2021, Expires: 01/02/2022 [facility] Work Phone: Comment on above: Expected: 11/02/2021, Expires: 2 Start: 09-14-2021 COVID-19 VACCINE (5 - Booster) COVID-19 VACCINE (5 - Booster) [facility] Start: 08-17-2021 COVID-19 VACCINE (4 - Booster for Moderna series) COVID-19 VACCINE (4 - Booster for Moderna series) [facility] Start: 07-17-2021 ADVANCE DIRECTIVE DISCUSSION ADVANCE DIRECTIVE DISCUSSION [facility] Start: 07-17-2021 DEPRESSION ASSESSMENT DEPRESSION ASSESSMENT [facility] Start: 02-22-2021 COVID-19 VACCINE (3 - Booster for Moderna series) COVID-19 VACCINE (3 - Booster for Moderna series) [facility] Start: 06-07-2015 PNEUMOVAX AGE 65 AND OVER WITH 5YR LOOKBACK (#1) PNEUMOVAX AGE 65 AND OVER WITH 5YR LOOKBACK (#1) [facility] Start: 06-20-2013 Urine microalbumin profile DTAP,TDAP,TD (1 - Tdap) [facility] Start: 08-22-2012 SHINGRIX VACCINE (2 of 3) SHINGRIX VACCINE (2 of 3) [facility] Start: 2006 RSV Vaccine (1 - 1-dose 60+ series) RSV Vaccine (1 - 1-dose 60+ series) [facility] Start: 02-14-1996 SHINGRIX VACCINE (1 of 2) SHINGRIX VACCINE (1 of 2) [facility] Start: 1991 COLOGUARD (FIT-DNA) COLOGUARD (FIT-DNA) [facility] Start: 1991 Colonoscopy COLONOSCOPY [facility] Start: 1991 COLORECTAL CANCER SCREENING COLORECTAL CANCER SCREENING [facility] Start: [address] COLONOGRAPHY [facility] Start: 1991 DIABETES SCREEN DIABETES SCREEN [facility] Start: 1991 FECAL OCCULT BLOOD FECAL OCCULT BLOOD [facility] Start: 1991 SIGMOIDOSCOPY SIGMOIDOSCOPY [facility] Start: 1981 LIPID SCREEN LIPID SCREEN [facility] Start: 02-14-1964 Anxiety Screening Anxiety Screening [facility] Start: 02-14-1964 Depression Screening Depression Screening [facility] Start: 02-14-1964 HEPATITIS C SCREENING HEPATITIS C SCREENING [facility] Start: 02-14-1964 Hepatitis C screening Hepatitis C Screening [facility] Dermatopathology exam Dermatopat hology exam Pathology and Cytology Timed Neoplasm of unspecified behavior of bone, soft tissue, and skin Release Upon Ordering for 1 Occurrences starting 08/28/2023 [facility]: Comment on above: Release Upon Ordering for 1 Occurrences starting 08/28/2023 MR Cervical spine WO contrast [facility] US Extremity [facility] Immunizations Immunization Date Immunization Notes Care Provider Iris quinonez 03-26-2024 influenza, high dose seasonal, preservative-free [facility] 05-01-2023 influenza virus vaccine, unspecified formulation [facility] 05-01-2023 influenza, high dose seasonal, preservative-free Jamar Fall Other [facility] 04-28-2022 influenza nasal, unspecified formulation Lab/Port [employer] Work Phone: [facility] 04-28-2022 influenza, high-dose , quadrivalent vaccine (FLUZONE HIGH DOSE QUADRIVALENT) Lab/Port [facility] Work Phone: [facility] 04-28-2022 influenza, high dose seasonal, preservative-free Jamar Fall Other [facility] 04-28-2022 influenza virus vaccine, unspecified formulation Lab/[employer] Work Phone: [facility] 04-21-2022 COVID-19 booster vaccine, age 12+ yr, bivalent (MODERNA) Lab/Port [facility] Work Phone: [facility] Comment on above: Result Comment: 2023: [id number] 01-21-2022 COVID-19 Vaccine Moderna - Documentation Purposes Only Jamar Fall Other [facility] Comment on above: Result Comment: 2023: [id number] 05-17-2021 COVID-19 Vaccine Moderna - Documentation Purposes Only Jamar Fall Other [facility] Comment on above: Result Comment: 2023: [id number] 04-22-2021 influenza virus vaccine, split virus (incl. purified surface antigen) Jamar Fall Other [facility] 04-22-2021 influenza virus vaccine, unspecified formulation [facility] 04-16-2021 influenza nasal, unspecified formulation Marco A Esqueda MD Work Phone: [facility] [facility] 04-16-2021 influenza virus vaccine, unspecified formulation Anthony SCRUGGS [facility] 09-22-2020 COVID-19 Vaccine Moderna - Documentation Purposes Only Jamar Fall Other [facility] 08-26-2020 SARS-CoV-2 (COVID-19 ) Ad26 vaccine, recombinant Anthony SCRUGGS [facility] 08-24-2020 COVID-19 original vaccine, full dose, monovalent (MODERNA) [facility] Work Phone: [facility] 07-17-2020 SARS-CoV-2 (COVID-19 ) mRNA-1273 vaccine Anthony SCRUGGS [facility] Comment on above: Result Comment: pt d oes not know the dates but states that he is fully vaccinated 04-23-2020 influenza virus vaccine, split virus (incl. purified surface antigen) Jamar Fall Other [facility] 04-23-2020 influenza virus vaccine, unspecified formulation [facility] 04-22-2019 influenza virus vaccine, split virus (incl. purified surface antigen) Jamar Fall Other [facility] 04-22-2019 influenza virus vaccine, unspecified formulation [facility] 04-16-2019 influenza nasal, unspecified formulation Marco A Esqueda MD Work Phone: [facility] 08-20-2018 zoster vaccine recombinant Marco A Esqueda MD Work Phone: [facility] 06-11-2018 zoster vaccine recombinant Marco A Esqueda MD Work Phone: [facility] 04-16-2018 influenza nasal, unspecified formulation Marco A Esqueda MD Work Phone: [facility] 03-27-2018 AS03 adjuvant [facility] brittany Work Phone: [facility] 03-27-2018 influenza nasal, unspecified formulation [facility] Work Phone: [facility] 03-27-2018 influenza virus vaccine, split virus (incl. purified surface antigen) Jamar Fall Other [facility] Other 03-27-2018 influenza virus vaccine, unspecified formulation Anthonycindy SCRUGGS [facility] 03-27-2018 Seasonal trivalent influenza vaccine, adjuvanted, preservative free Marco A Esqueda MD Work Phone: [facility] 06-12-2017 pneumococcal polysaccharide vaccine, 23 valent Marco A Esqueda MD Work Phone: [facility] 06-01-2017 pneumococcal polysaccharide vaccine, 23 valent Jamar Fall Other [facility] 06-01-2017 Prevnar 20 Jamar Fall Other [facility] 05-31-2017 influenza nasal, unspecified formulation [facility] Work Phone: [facility] 05-31-2017 influenza virus vaccine, unspecified formulation Anthonycindy SCRUGGS [facility] 05-31-2017 influenza, injectabl e, quadrivalent, preservative free Marco A Esqueda MD Work Phone: [facility] 04-03-2017 influenza nasal, unspecified formulation [facility] Work Phone: [facility] 04-03-2017 influenza virus vaccine, split virus (incl. purified surface antigen) Jamar Fall Other [facility] Other 04-03-2017 influenza virus vaccine, unspecified formulation Anthony SCRUGGS [facility] 04-03-2017 influenza, high dose seasonal, preservative-free Marco A Esqueda MD Work Phone: [facility] 03-23-2017 influenza nasal, unspecified formulation Marco A Esqueda MD Work Phone: [facility] 04-01-2016 influenza virus vaccine, split virus (incl. purified surface antigen) Jamar Fall Other [facility] 04-01-2016 influenza virus vaccine, unspecified formulation [facility] 03-31-2016 influenza nasal, unspecified formulation Marco A Esqueda MD Work Phone: [facility] 05-11-2015 influenza nasal, unspecified formulation Marco A Esqueda MD Work Phone: [facility] 05-11-2015 influenza, seasonal, injectable, preservative free [facility] Work Phone: [facility] 05-11-2015 pneumococcal conjuga te vaccine, 13 valent Marco A Esqueda MD Work Phone: [facility] 04-29-2015 pneumococcal polysaccharide vaccine, 23 valent Marco A Esqueda MD Work Phone: [facility] 06-09-2014 influenza nasal, unspecified formulation [facility] Work Phone: [facility] 06-09-2014 influenza, seasonal, injectable, preservative free Marco A Esqueda MD Work Phone: [facility] 06-19-2013 diphtheria, tetanus toxoids and acellular pertussis vaccine, unspecified formulation Marco A Esqueda MD Work Phone: [facility] 06-19-2013 tetanus and diphther ia toxoids, not adsorbed, for adult use Marco A Esqueda MD Work Phone: [facility] 05-23-2013 influenza nasal, unspecified formulation Marco A Esqueda MD Work Phone: [facility] 04-24-2013 tetanus and diphther ia toxoids, adsorbed, preservative free, for adult use (5 Lf of tetanus toxoid and 2 Lf of diphtheria toxoid) Jamar Fall Other [facility] 06-27-2012 zoster vaccine, live Marco A lake MD Work Phone: [facility] 06-11-2012 influenza nasal, unspecified formulation Marco A Esqueda MD Work Phone: [facility] 06-02-2011 influenza nasal, unspecified formulation Marco A Esqueda MD Work Phone: [facility] 06-23-2010 pneumococcal polysaccharide vaccine, 23 valent Jamar Fall Other [facility] 06-07-2010 pneumococcal polysaccharide vaccine, 23 valent Marco A Esqueda MD Work Phone: [facility] 06-07-2010 pneumococcal vaccine , unspecified formulation Marco A Esqueda MD Work Phone: [facility] 05-28-2010 influenza nasal, unspecified formulation Marco A Esqueda MD Work Phone: [facility] 01-14-2010 pneumococcal polysaccharide vaccine, 23 valent Jamar Fall Other [facility] 05-25-2009 influenza nasal, unspecified formulation Marco A Esqueda MD Work Phone: [facility] 06-09-2008 influenza nasal, unspecified formulation Marco A Esqueda MD Work Phone: [facility] 07-23-2003 influenza virus vaccine, whole virus Marco A Esqueda MD Work Phone: [facility] 01-14-2003 diphtheria, tetanus toxoids and acellular pertussis vaccine, unspecified formulation Jamar Fall Other [facility] 01-10-2003 TD(adult) unspecifie d formulation Marco A Esqueda MD Work Phone: [facility] 07-03-2002 influenza nasal, unspecified formulation Marco A Esqueda MD Work Phone: [facility] Payers Date Payer Category Payer Unknown MMO MMO MEDICARE SUPPLEMENT [id number] 2019-Present [phone] [address] [place] [address] Indemnity [id number] 2019 Unknown [id number] 2011 Medicare MEDICARE MEDICAR E A AND B [id number] 2011-Present [phone] [address] [address] [place] [address] Medicare [id number] 2011 Medicare [id number]. [id number] 1959 Medicare [id number] 1959 Self-pay 1959 Unknown [id number] 1946 Unknown [id number] [id number] 1946 Unknown [id number] 2.16.840.1.900829.3.579.2.593 1946 Unknown [id number] 2.16.840.1.843956.3.579.2.593 1946 Unknown [id number] 2.16.840.1.984189.3.579.2.593 1946 Unknown [id number] 2.16.840.1.650641.3.579.2.593 1946 Unknown [id number] 2.16.840.1.751285.3.579.2.1259 1946 Unknown [id number] 2.16.840.1.053669.3.579.2.1259 1946 Unknown [id number] 2.16.840.1.145499.3.579.2.1259 1946 Unknown [id number] 2.16.840.1.024752.3.579.2.1259 1946 Unknown [id number] 2.16.840.1.365622.3.579.2.1259 1946 Unknown [id number] 2.16.840.1.789021.3.579.2.727 1946 Unknown [id number] 2.16.840.1.138054.3.579.2.727 1946 Unknown [id number] 2.16.840.1.832779.3.579.2.727 Unknown [id number] [id number] Unknown [id number] [id number] Unknown [id number] Social History Date Type Detail Facility Start: 11-08-2021 End: 08-11-2022 Tobacco smoking status NHIS Never smoked tobacco [facility] Start: 10-25-2021 End: 11-02-2023 Alcohol intake Current drinker of alcohol (finding) [facility] Start: 08-19-2014 History SDOH Alcohol Comment 1 day/wk [facility] Start: 1945 Sex Assigned At Not on file C [facility] Start: 10-18-2021 End: 05-12-2022 Exposure to SARS-CoV-2 (event) Not sure [facility] Tobacco smoking status Never [facility] Start: 02-02-2023 End: 01-31-2024 Sex Assigned At Male [facility] Start: 1945 Sex Assigned At Male [facility] Start: 01-12-2018 End: 08-11-2022 Tobacco use and exposure Smokeless tobacco non-user [facility] Start: 02-02-2023 End: 01-31-2024 History of Social function [facility] Start: 02-11-2022 Gender identity Identifies as male gender (finding) [facility] Start: 02-11-2022 Sexual orientation Heterosexual (ce coburn) [facility] How often to you hav e [...] 09-06-2023 Tobacco smoking status NHIS Ex-smoker (finding) [facility] NEGATED: Highlighted rowStart: CARISSAF History of tobacco use Passive smoker [facility] Medical Equipment Procedure Code Equipment Code Equipment Origin al Text Equipment Identifier Dates Start: 10-26-2021 End: 05-12-2022 Comment on above: 1 Each once daily. T o test blood sugars 1 Each once daily. T o test blood sugar Blood Sugar Diagnostic (Contour Next Test Strips) strip Start: 10-10-2023 Lancets (Lancets,Thin) [facility] Start: 09-08-2023 Blood Sugar Diagnostic (Contour Next Test Strips) strip Start: 09-08-2023 End: 10-10-2023 Blood Sugar Diagnostic (Contour Next Test Strips) strip Start: 10-10-2023 Lancets (Lancets,Thin) [facility] Start: 09-08-2023 Blood Sugar Diagnostic (Contour Next Test Strips) strip Start: 09-08-2023 End: 10-10-2023 Functional Status Date Assessment Result Facility 10-20-2023 Functional Status N/A [facility] 04-17-2023 Functional Status N/A [facility] 05-13-2022 Functional Status N/A [facility] Clinical Notes 07-17-2014 to 04-19-2024 Telephone Encounter - Aida Luo [facility] - 04/01/2024 3:59 PM EDTTelephone Encounter - Aida Luo [facility] - 04/01/2024 3:59 PM EDTPatient Instructions Note Date & Type Note Facility 04-19-2024 Note Patient Education Oncology Prostate Cancer The prostate [...] under a microscope. This is called the Halls score and the total score can range from 6?10, indicating how likely it is that the cancer will spread (metastasize) to other parts of the body. The higher the score, the greater the likelihood that the cancer will spread. ? Lucrecia 6 or lower: This indicates that the cancer cells look similar to normal prostate cells (well differentiated). ? Halls 7: This indicates that the cancer cells look somewhat similar to normal prostate cells (moderately differentiated). ? Halls 8, 9, or 10: This indicates that [...] tubes that are implanted into the prostate gla (more content not included)... [facility] 04-01-2024 Telephone encounter Note Recd phone call from [facility] that they are unable to obtain the Xtandi 80mg tablets a this time and requested a script for the 40 mg dosing. Order pending Josh Luo PharmD, BCOP [facility] Work Phone: 04-01-2024 Miscellaneous Notes Recd phone call from [facility] that they are unable to obtain the Xtandi 80mg tablets a this time and requested a script for the 40 mg dosing. Order pending Josh Luo PharmD, BCOP documented in this encounter [facility] 03-29-2024 Note Coronary artery dise ase is stable, no concerning symptoms currently overall is doing well he is planning bilateral carpal tunnel surgery soon with Dr. Charlton. Continue GDMT-continue aspirin, Lipitor, metoprolol, and lisinopril continue risk factor modifications- heart healthy diet, regular exercise as tolerated and continue all medications. [facility] 03-29-2024 Note Hypertension is well -controlled at 127/51 Continue lisinopril/hydrochlorothiazide and metoprolol. Renal function normal [facility] 03-29-2024 Note Lipid abnormalities are stable continue Lipitor 40 mg daily lipid profile is well-controlled and liver function is normal [facility] 03-29-2024 Note Reviewed echocardiog tabby from July 08 moderate aortic stenosis noted and reviewed echo with patient and his No concerning symptoms at this time patient would like symptoms including palpitations, lightheaded dizziness, syncope, chest pain, worsening shortness of breath and he voiced understanding Monitor with echocardiogram [facility] 03-29-2024 Note RCRI=1 points Class II Risk 6.0 % 30-day risk of , MA, or cardiac arrest From a cardiac perspective pt may proceed with carpal tunnel surgery, he is a moderate risk for a low risk surgery. She may hold aspirin 5-7 days prior and resume post op. Please monitor hemodynamics carefully and prevent any major fluid shifts. [facility] 03-29-2024 Note Pt is here for surge ry clearance. Pt denies chest pain, sob, palpatations Review of Systems Musculoskeletal: Positive for arthritis, back pain, joint pain and myalgias. All other systems reviewed and are negative. [facility] 03-29-2024 Note [facility] CARDIOLOGY PROGR ESS NOTE [...] stenosis and regur (more content not included)... [facility] 02-02-2024 Instructions Lynne Alarcon APRN.CNP - 02/02/2024 [...] swallowing, increasing confusion documented in this encounter [facility] 02-02-2024 History of Present illness Narrative PATIENT NAME: Pablo Felix DATE: February 02, 2024 PRIMARY CARE PHYSICIAN: Dr. Jamar Fall OTHER PHYSICIANS: Dr. Anthony Scruggs, Dr. Khan, [facility] Cardiology This note was copied from [...] mg 24 hr tablet Take by mouth. Cyxlclzafgiqj-Wmnltojm-Csksvi (MULTIVITAMIN 50 PLUS) tab Take 1 tablet [...] Radical retropubic prostatectomy and bilateral pelvic lymphadenectomy ([facility]) Poorly differentiated prostatic adenocarcinoma of [...] 01/25/2024 0.15 RADIOLOGY/OTHER STUDIES: 11/05/2021 CT chest/abdomen/pelvis ([facility]) Several sclerotic lesions consistent with metastatic disease. No evidence of visceral organ involvement or lymphadenopathy. 11/05/2021 Bone scan ([facility]) Multifocal osseous metastasis including the left femur at the lesser trochanter, right pubis symphysis, multiple ribs bilaterally. 01/22/2018 Nuclear bone scan ([facility]) New focal increased activity left frontal bone, left T8 vertebral body. 01/22/2018 MRI pelvis ([facility]) 4.5 cm area of T2 signal in the prostate bed. 07/24/2014 CT abdomen/pelvis ([facility]) Diffuse prostatic enlargement with indentation of the [...] consistent with stage IIIC (pT2b, N0, M0), Halls 5+4 equal 9. Postop the patient's PSA [...] suppressed at <12. Bone scan obtained at [facility] 11/05/2021 revealed multiple bone metastases. 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 Stable on current medications. Continue [...] and Dr. Esqueda follow up. Lynne Alarcon APRN.CNP Hematology/Oncology [facility]/ [facility] [phone] CC: Dr. Anthony Scruggs documented in this encounter [facility] 02-02-2024 Note HNO ID: [id number] Author: LYNNE ALARCON APRN.CNP Service: ? Author Type: Nurse Practitioner Type: Progress Notes Filed: 02/02/2024 11:37 Note Text: PATIENT NAME: Pablo Felix DATE: February 02, 2024 PRIMARY CARE PHYSICIAN: Dr. Jamar Fall OTHER PHYSICIANS: Dr. Anthony Scruggs, Dr. Khan, [facility] Cardiology This note was copied from [...] mg 24 hr tablet Take by mouth. Esjabkfrmdhdt-Gkoowrdt-Ebudcu (MULTIVITAMIN 50 PLUS) tab Take 1 tablet [...] Radical retropubic prostatectomy and bilateral pelvic lymphadenectomy ([facility]) Poorly differentiated prostatic adenocarcinoma of [...] 0.43 09/07/2020 0.84 (more content not included)... [facility] 11-02-2023 Note HNO ID: [id number] Author: CHRISTO HOWARD APRN.ANIMAL STUNNER Service: ? Author Type: Nurse Practitioner Type: Progress Notes Filed: 11/03/2023 11:11 Note Text: PATIENT NAME: Pablo Felix DATE: 11/02/2023 PRIMARY CARE PHYSICIAN: Dr. Jamar Fall OTHER PHYSICIANS: Dr. Anthony Scruggs, Dr. Khan, [facility] Cardiology Portions of this encounter [...] mg 24 hr tablet Take by mouth. Xebpviccslyyp-Xzbrejap-Pytqaz (MULTIVITAMIN 50 PLUS) tab Take 1 tablet [...] Radical retropubic prostatectomy and bilateral pelvic lymphadenectomy ([facility]) Poorly differentiated prostatic adenocarcinoma of [...] <0.13 09/26/2019 0.09 (more content not included)... [facility] 11-02-2023 History of Present illness Narrative PATIENT NAME: Pablo Felix DATE: 11/02/2023 PRIMARY CARE PHYSICIAN: Dr. Jamar Fall OTHER PHYSICIANS: Dr. Anthony Scruggs, Dr. Khan, [facility] Cardiology Portions of this encounter [...] mg 24 hr tablet Take by mouth. Qkqnnkfmiucpd-Skmwwssx-Tioxlz (MULTIVITAMIN 50 PLUS) tab Take 1 tablet [...] Radical retropubic prostatectomy and bilateral pelvic lymphadenectomy ([facility]) Poorly differentiated prostatic adenocarcinoma of [...] 10/29/2023 0.16 RADIOLOGY/OTHER STUDIES: 11/05/2021 CT chest/abdomen/pelvis ([facility]) Several sclerotic lesions consistent with metastatic disease. No evidence of visceral organ involvement or lymphadenopathy. 11/05/2021 Bone scan ([facility]) Multifocal osseous metastasis including the left femur at the lesser trochanter, right pubis symphysis, multiple ribs bilaterally. 01/22/2018 Nuclear bone scan ([facility]) New focal increased activity left frontal bone, left T8 vertebral body. 01/22/2018 MRI pelvis ([facility]) 4.5 cm area of T2 signal in the prostate bed. 07/24/2014 CT abdomen/pelvis ([facility]) Diffuse prostatic enlargement with indentation of the [...] suppressed at <12. Bone scan obtained at [facility] 11/05/2021 revealed multiple bone metastases. 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 Stable on current medications. Continue [...] which included preparing to see the patient, cnnd-wf-vhxo patient care, completing clinical documentation, obtaining and/or reviewing separately obtained history, performing a medically appropriate examination, counseling and educating the patient/family/caregiver, ordering medications, tests, or procedures, independently interpreting results (not separately reported), and communicating results to the patient/family/caregiver. documented in this encounter [facility] 10-20-2023 Hospital Discharge instructions Patient Education [...] the likelihood that the cancer will spread. Halls 6 or lower: This indicates that the cancer cells look similar to normal prostate cells (well differentiated). Halls 7: This indicates that the cancer cells look somewhat similar to normal prostate cells (moderately differentiated). Lucrecia 8, 9, or 10: This indicates [...] stress of having cancer. General instructions Take owwj-esr-svxrwpd and prescription medicines only as told by your health care provider. If you have to go to the hospital, notify your cancer specialist (oncologist). Keep all follow-up visits. This is important. Where to find more information [employer] [employer]: www.cancer.org [place] [employer]: www.cancer.net National Cancer [place]: www.cancer.gov Contact a health care provider if: [...] provider. Document Revised: 09/29/2021 Document Reviewed: 09/29/2021 [employer] Patient Education 2022 [employer]. Follow Up Care 04/17/2023 09:25:02 With:KAEL JAMES, Anthony Lee, URL Address: [address] [place], [place] [address]- When: Unknown [facility] 08-28-2023 History of Present illness Narrative Images [...] limited to risks of scarring, darker or diet kitchen cook pigmentary changes, recurrence, incomplete removal and infection. [...] results, 6 months documented in this encounter [facility] 08-24-2023 Evaluation note Encounter Date Diagnosis [...] use, the patient reduces the risk for MA, CVA, HTN, cardiac dysrhythmias and sudden cardiac [...] retention cyst and frontal sinus mass benign [facility] Other 01-19-2024 Evaluation note* Encounter Date Diagnosis Assessment Notes Treatment Notes Treatment Clinical Notes Jul, Pancreatic mass (ICD-10 - K86.89) MRCP: 4cm mass - 2022 - previously completed EUS bx at [facility] - stable in size from 2021 [facility] Other 01-18-2024 NoteHNO ID: [id number] Author: MARCO A ESQUEDA MD Service: ? Author Type: Physician Type: Progress Notes Filed: 08/04/2023 06:33 Note Text: PATIENT NAME: Pablo Felix DATE: 08/03/2023 PRIMARY CARE PHYSICIAN: Dr. Jamar Fall OTHER PHYSICIANS: Dr. Anthony Scruggs, Dr. Khan, [facility] Cardiology Portions of this encounter [...] mg 24 hr tablet Take by mouth. 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 Left base margin positive for neoplasm. Seminal vesicles with no diagnostic abnormality. 2 resected lymph nodes negative for neoplasm. LABS: Hemoglobin (g/dL) Date Value 07/27/2023 11.8 05/08/2018 12.8 Hematocrit (%) Date Value 07/27/2023 34.8 05/08/2018 36.8 WBC (k/uL) Date Value 07/27/2023 6.43 05/08/2018 5.63 Platele (more content not included)...[facility]12-07-[address] [facility] Cardiology Clinic Note Chief Complaint: Patient [...] should problems arise Bridger Mulligan MD, MPH, [facility], [facility], [facility] Interventional Cardiology Pager Email: [email or web address]11-14-2023 Evaluation note* Encounter Date Diagnosis Assessment Notes [...] ENT since scheduling appt for sinus mass [facility] Other 10-16-2023 Evaluation note* Encounter Date Diagnosis [...] malignant neoplasm of bone (ICD-10 - C79.51) [facility] Other 10-12-2023 History of Present illness Narrative* Christo Howard, ROCHELLE.ANIMAL STUNNER - 04/27/2023 10:00 AM EDT PATIENT NAME: Pablo Felix DATE: 04/27/2023 PRIMARY CARE PHYSICIAN: Dr. Jamar Fall OTHER PHYSICIANS: Dr. Anthony Scruggs, Dr. Khan, [facility] Cardiology Portions of this encounter [...] mg 24 hr tablet Take by mouth. Nuwdotcmallsx-Qlwrheuj-Djtegg (MULTIVITAMIN 50 PLUS) tab Take 1 tablet [...] Radical retropubic prostatectomy and bilateral pelvic lymphadenectomy ([facility]) Poorly differentiated prostatic adenocarcinoma of [...] 04/24/2023 0.12 RADIOLOGY/OTHER STUDIES: 11/05/2021 CT chest/abdomen/pelvis ([facility]) Several sclerotic lesions consistent with metastatic disease. No evidence of visceral organ involvement or lymphadenopathy. 11/05/2021 Bone scan ([facility]) Multifocal osseous metastasis including the left femur at the lesser trochanter, right pubis symphysis, multiple ribs bilaterally. 01/22/2018 Nuclear bone scan ([facility]) New focal increased activity left frontal bone, left T8 vertebral body. 01/22/2018 MRI pelvis ([facility]) 4.5 cm area of T2 signal in the prostate bed. 07/24/2014 CT abdomen/pelvis ([facility]) Diffuse prostatic enlargement with indentation of the bladder base. Incidental 2.5 x 1 cm exophytic hypodense lesion adjacent to the pancreatic body. ASSESSMENT/PLAN: 1. Metastatic prostate cancer (HCC) - ICD9: 185, ICD10: C61 (primary diagnosis) The patient was diagnosed with early-stage high-grade prostate cancer in June 2014 (TRUS [id number]/02/2014). He underwent a radical prostatectomy on 11/05/2014. Pathology consistent with stage IIIC (pT2b, N0, M0), Halls 5+4 equal 9. Postop the patient's PSA [...] He was seen by his urologist (Dr. Srcuggs) and recommendations were to add abiraterone/prednisone to the Lupron. Unfortunately, the patient's insurance would not cover the cost of the medications. PSA obtained 10/25/2021 was further elevated at 2.64. Testosterone 10/28/2021 was adequately suppressed at <12. Bone scan obtained at [facility] 11/05/2021 revealed multiple bone metastases. 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 Stable on current medications. Continue [...] which included preparing to see the patient, tmww-wl-exgo patient care, completing clinical documentation, obtaining and/or reviewing separately obtained history, performing a medically appropriate examination, counseling and educating the pat ient/family/caregiver, ordering medications, tests, or procedures, independently interpreting results (not separately reported), and communicating results to the patient/family/caregiver. documented in this encounterTrihealth Bethes[facility] Hospital10-12-2023 NoteHNO ID: [id number] Author: Christo Howard APRN.CNP Service: ? Author Type: Nurse Practitioner Type: Progress Notes Filed: 04/27/2023 11:16 AM Note Text: PATIENT NAME: Pablo Felix DATE: 04/27/2023 PRIMARY CARE PHYSICIAN: Dr. Jamar Fall OTHER PHYSICIANS: Dr. Anthony Scruggs, Dr. Khan, [facility] Cardiology Portions of this encounter [...] mg 24 hr tablet Take by mouth. Dbjhaugndwchh-Lmrphbse-Tauvbp (MULTIVITAMIN 50 PLUS) tab Take 1 tablet [...] Radical retropubic prostatectomy and bilateral pelvic lymphadenectomy ([facility]) Poorly differentiated prostatic adenocarcinoma of [...] 05/08/2018 168 PSA 01/22/20 (more content not included)...[facility]10-03-2023 Evaluation note* Encounter Date Diagnosis Assessment Notes Treatment Notes Treatment Clinical Notes Apr, Pancreatic mass (ICD-10 - K86.89) [facility] Other 10-02-2023 Hospital Discharge instructions Patient Education 04/17/2023 09:18:19 [...] similar to normal prostate cells (moderately differentiated). Halls 8, 9, or 10: This indicates that [...] stress of having cancer. General instructions Take kwsb-ush-lhywdis and prescription medicines only as told by your health care provider. If you have to go to the hospital, notify your cancer specialist (oncologist). Keep all follow-up visits. This is important. Where to find more information [employer] [employer]: www.cancer.org [place] [employer]: www.cancer.net National Cancer [place]: www.cancer.gov Contact a health care provider if: [...] provider. Document Revised: 09/29/2021 Document Reviewed: 09/29/2021 [employer] Patient Education 2022 [employer]. Follow Up Care 10/28/2022 08:37:57 With:KAEL JAMES, Anthony Lee, URL Address: [facility] [address], [place] [address]- [phone] When: Unknown Comments:6 mos w/ PSA (and possible Lupron) [facility] 09-27-2023 Evaluation note* Encounter Date Diagnosis Assessment Notes Treatment Notes Treatment Clinical Notes Mar, Pancreatic mass (ICD-10 - K86.89) [facility] Other 09-20-2023 Evaluation note* Encounter Date Diagnosis Assessment Notes Treatment Notes Treatment Clinical Notes Mar, Right upper quadrant abdominal pain (ICD-10 - R10.11) Diet instructions Lab to r/o acute infection, cholecystitis, pancreatitis GBUS vs CT abd based on results BLand, low fat diet Mar, Nausea (ICD-10 - R11.0) [place] , small/frequent feedings. Pepcid, Prilosec, Tums as [...] Microalbumin, Dilated eye exam and Foot exam [facility] Other 08-30-2023 Evaluation note* Encounter Date Diagnosis [...] use, the patient reduces the risk for MA, CVA, HTN, cardiac dysrhythmias and sudden cardiac [...] exercise for 30 minutes, 3-5 times weekly. [facility] Other 07-23-2023 Evaluation note* Encounter Date Diagnosis Assessment Notes Treatment Notes Treatment Clinical Notes Jan, Left bundle-branch block, unspecified (ICD-10 - I44.7) [facility] Other 07-20-2023 History of Present illness Narrative* Marco A Esqueda MD - 02/02/2023 7:38 AM EDT PATIENT NAME: Pablo Felix DATE: 02/02/2023 PRIMARY CARE PHYSICIAN: Dr. Jamar Fall OTHER PHYSICIANS: Dr. Anthony Scruggs, Dr. Khan, [facility] Cardiology Portions of this encounter [...] mg 24 hr tablet Take by mouth. Hjecttdrxjtyt-Zzkzpaqn-Pccgof (MULTIVITAMIN 50 PLUS) tab Take 1 tablet [...] Radical retropubic prostatectomy and bilateral pelvic lymphadenectomy ([facility]) Poorly differentiated prostatic adenocarcinoma of [...] 10/25/2022 0.13 RADIOLOGY/OTHER STUDIES: 11/05/2021 CT chest/abdomen/pelvis ([facility]) Several sclerotic lesions consistent with metastatic disease. No evidence of visceral organ involvement or lymphadenopathy. 11/05/2021 Bone scan ([facility]) Multifocal osseous metastasis including the left femur at the lesser trochanter, right pubis symphysis, multiple ribs bilaterally. 01/22/2018 Nuclear bone scan ([facility]) New focal increased activity left frontal bone, left T8 vertebral body. 01/22/2018 MRI pelvis ([facility]) 4.5 cm area of T2 signal in the prostate bed. 07/24/2014 CT abdomen/pelvis ([facility]) Diffuse prostatic enlargement with indentation of the bladder base. Incidental 2.5 x 1 cm exophytic hypodense lesion adjacent to the pancreatic body. ASSESSMENT/PLAN: 1. Metastatic prostate cancer (HCC) - ICD9: 185, ICD10: C61 (primary diagnosis) The patient was diagnosed with early-stage high-grade prostate cancer in June 2014 (TRUS tgmlnx0007/02/2014). He underwent a radical prostatectomy on 11/05/2014. [...] suppressed at <12. Bone scan obtained at [facility] 11/05/2021 revealed multiple bone metastases. 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 Stable on current medications. Continue [...] CC: Dr. Anthony Scruggs documented in this encounterTrihealth Bethesda [facility] Hospital04-27-2023 History of Present illness Narrative* Christo Howard APRN.ANIMAL STUNNER - 11/10/2022 10:00 AM EDT PATIENT NAME: Pablo Felix DATE: 11/10/2022 PRIMARY CARE PHYSICIAN: Dr. Jamar Fall OTHER PHYSICIANS: Dr. Anthony Scruggs, Dr. Khan, [facility] Cardiology Portions of this encounter [...] mg 24 hr tablet Take by mouth. Gsixzfhvqntnd-Jswpfuga-Vwlipx (MULTIVITAMIN 50 PLUS) tab Take 1 tablet [...] Radical retropubic prostatectomy and bilateral pelvic lymphadenectomy ([facility]) Poorly differentiated prostatic adenocarcinoma of [...] PSA 0.13 RADIOLOGY/OTHER STUDIES: 11/05/2021 CT chest/abdomen/pelvis ([facility]) Several sclerotic lesions consistent with metastatic disease. No evidence of visceral organ involvement or lymphadenopathy. 11/05/2021 Bone scan ([facility]) Multifocal osseous metastasis including the left femur at the lesser trochanter, right pubis symphysis, multiple ribs bilaterally. 01/22/2018 Nuclear bone scan ([facility]) New focal increased activity left frontal bone, left T8 vertebral body. 01/22/2018 MRI pelvis ([facility]) 4.5 cm area of T2 signal in the prostate bed. 07/24/2014 CT abdomen/pelvis ([facility]) Diffuse prostatic enlargement with indentation of the bladder base. Incidental 2.5 x 1 cm exophytic hypodense lesion adjacent to the pancreatic body. ASSESSMENT/PLAN: 1. Metastatic prostate cancer (HCC) - ICD9: 185, ICD10: C61 (primary diagnosis) The patient was diagnosed with early-stage high-grade prostate cancer in June 2014 (TRUS [id number]/02/2014). He underwent a radical prostatectomy on 11/05/2014. [...] suppressed at <12. Bone scan obtained at [facility] 11/05/2021 revealed multiple bone metastases. 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 Stable on current medications. Continue [...] which included preparing to see the patient, akpv-yl-wkmi patient care, completing clinical documentation, obtaining and/or reviewing separately obtained history, performing a medically appropriate examination, counseling and educating the pat ient/family/caregiver, ordering medications, tests, or procedures, independently interpreting results (not separately reported), and communicating results to the patient/family/caregiver. documented in this encounterTrihealth [facility]03-03-2023 Evaluation note* Encounter Date Diagnosis Assessment [...] injection w/ Kenalog, may increase BS slightly [facility] Other 02-24-2023 Evaluation note* Encounter Date Diagnosis [...] use, the patient reduces the risk for MA, CVA, HTN, cardiac dysrhythmias and sudden cardiac [...] Lupron along w/ additional oral chemotherapy from [facility] Oncology. Also receiving Boniva Aug, [...] reviewed and amended by provider signed below. [facility] Other 01-26-2023 History of Present illness Narrative* Marco A Esqueda MD - 08/11/2022 7:42 AM EST PATIENT NAME: Pablo Felix DATE: 08/11/2022 PRIMARY CARE PHYSICIAN: Dr. Jamar Fall OTHER PHYSICIANS: Dr. Anthony Scruggs, Dr. Khan, [facility] Cardiology Portions of this encounter [...] mg 24 hr tablet Take by mouth. Jvwgoqdexlpcw-Qbqrnreg-Huokxa (MULTIVITAMIN 50 PLUS) tab Take 1 tablet [...] Radical retropubic prostatectomy and bilateral pelvic lymphadenectomy ([facility]) Poorly differentiated prostatic adenocarcinoma of [...] 08/11/2022 PSA RADIOLOGY/OTHER STUDIES: 11/05/2021 CT chest/abdomen/pelvis ([facility]) Several sclerotic lesions consistent with metastatic disease. No evidence of visceral organ involvement or lymphadenopathy. 11/05/2021 Bone scan ([facility]) Multifocal osseous metastasis including the left femur at the lesser trochanter, right pubis symphysis, multiple ribs bilaterally. 01/22/2018 Nuclear bone scan ([facility]) New focal increased activity left frontal bone, left T8 vertebral body. 01/22/2018 MRI pelvis ([facility]) 4.5 cm area of T2 signal in the prostate bed. 07/24/2014 CT abdomen/pelvis ([facility]) Diffuse prostatic enlargement with indentation of the bladder base. Incidental 2.5 x 1 cm exophytic hypodense lesion adjacent to the pancreatic body. ASSESSMENT/PLAN: 1. Metastatic prostate cancer (HCC) - ICD9: 185, ICD10: C61 (primary diagnosis) The patient was diagnosed with early-stage high-grade prostate cancer in June 2014 (TRUS [id number]/02/2014). He underwent a radical prostatectomy on 11/05/2014. [...] suppressed at <12. Bone scan obtained at [facility] 11/05/2021 revealed multiple bone metastases. 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 Stable on current medications. Continue [...] CC: Dr. Anthony Scruggs documented in this encounterTrihealth Bethes[facility] Hospital01-05-2023 NotePROCEDURE: XR SHOULDER LT 2V or [...] Electronically authenticated by: CYNTHIA TORRES Date: 2022-07-21 15:46[facility]01-05-2023 Evaluation note* Encounter Date Diagnosis Assessment Notes Treatment Notes Treatment Clinical Notes Jul, Cervical spondylosis with radiculopathy (ICD-10 - M47.22) ROM exercises, heat/ice and Tylenol 1000mg tid. Initiated Tramadol w/ caution, no driving, may cause sedation. Jul, Acute pain of left shoulder (ICD-10 - M25.512) ROM exercises, Tylenol and Tramadol as needed. Jul, Annual physical exam (ICD-10 - Z00.00) [facility] Other 10-28-2022 Hospital Discharge instructions Patient Education [...] who: Are older than age 65. Are -Tong[place]. Are obese. Have a family history of [...] cells. Follow these instructions at home: Take weic-tjv-qhcyrmq and prescription medicines only as told by [...] 07/03/2006 Document Revised: 06/15/2018 Document Reviewed: 03/13/2017 [employer]SEC Patient Education 2020 SocialChorus. Follow Up Care 11/08/2021 14:14:20 With:KAEL JAMES, Anthony Lee, URL Address: [address] [place] [address]- When: Unknown [facility] 10-27-2022 Nurse Note* Sheela Toney - 05/12/2022 10:43 AM EDT AUA=2 documented in this encounterTrihealth Bethesda [facility] Hospital10-27-2022 History of Present illness Narrative* Zach Khan MD - 05/12/2022 10:41 AM EDT Radiation Oncology - Follow Up Note PATIENT NAME: Pablo Felix PATIENT DIAGNOSIS: Prostate adenocarcinoma, initial clinical stage II, initial PSA 1.07, biopsy Lucrecia score 9(4,5), s/p prostatectomy for 11/05/14 pathologic stage IIIC [id number], Lucrecia 9 (5, 4) now with rising [...] Each once daily. To test blood sugar Nqvvuaxtuljvo-Cnpbbyis-Ywmhpw (MULTIVITAMIN 50 PLUS) tab Take 1 tablet [...] s/p prostatectomy for 11/05/14 pathologic stage IIIC [id number], Lucrecia 9 (5, 4) withrising PSA, subsequently [...] Khan MD cc: Jamar Fall MD ([facility]) Portions of the above note extracted and edited from previous visit as well as active information included in the EMR. documented in this encounterTrihealth Bethesda North Hospital10-17-2022 Miscellaneous Notes* Telephone Encounter - Sheela Toney - 05/02/2022 10:48 AM EDT Patient coming in on 05/12/22 for follow up with labs. Please add lab orders. Thanks, Sheela Toney MA documented in this encounterTrihealth Bethes[facility] Hospital08-04-2022 History of Present illness Narrative* Marco A Esqueda MD - 02/17/2022 7:51 AM EDT PATIENT NAME: Pablo Felix DATE: 02/17/2022 PRIMARY CARE PHYSICIAN: Jamar Fall DO OTHER PHYSICIANS: Dr. Anthony Scruggs, Dr. Khan, [facility] Cardiology Portions of this encounter [...] Each once daily. To test blood sugar Icaelpcikkzmg-Tfcjufnu-Numpil (MULTIVITAMIN 50 PLUS) tab Take 1 tablet [...] Radical retropubic prostatectomy and bilateral pelvic lymphadenectomy ([facility]) Poorly differentiated prostatic adenocarcinoma of [...] PSA 0.14 RADIOLOGY/OTHER STUDIES: 11/05/2021 CT chest/abdomen/pelvis ([facility]) Several sclerotic lesions consistent with metastatic disease. No evidence of visceral organ involvement or lymphadenopathy. 11/05/2021 Bone scan ([facility]) Multifocal osseous metastasis including the left femur at the lesser trochanter, right pubis symphysis, multiple ribs bilaterally. 01/22/2018 Nuclear bone scan ([facility]) New focal increased activity left frontal bone, left T8 vertebral body. 01/22/2018 MRI pelvis ([facility]) 4.5 cm area of T2 signal in the prostate bed. 07/24/2014 CT abdomen/pelvis ([facility]) Diffuse prostatic enlargement with indentation of the bladder base. Incidental 2.5 x 1 cm exophytic hypodense lesion adjacent to the pancreatic body. ASSESSMENT/PLAN: 1. Metastatic prostate cancer (HCC) - ICD9: 185, ICD10: C61 (primary diagnosis) The patient was diagnosed with early-stage high-grade prostate cancer in June 2014 (TRUS [id number]/02/2014). He underwent a radical prostatectomy on 11/05/2014. Pathology consistent with stage IIIC (pT2b, N0, M0), Halls 5+4 equal 9. Postop the patient's PSA [...] at <12. Staging scans were obtained at [facility] on 11/05/2021. Bone scan revealed [...] 414.01, ICD10: I25.10 Status post CABG 08/17/2014 ([facility]). Stable on current medications. Continue [...] CC: Dr. Anthony Scruggs documented in this encounterTrihealth Bethesda North Hospital05-23-2022 Miscellaneous Notes* Telephone Encounter - Clementine [...] that he has the phone number to [facility]. No additional questionsnoted. Clementine Aguilar RN documented in this encounterTrihealth Bethesda [facility] Hospital04-28-2022 History of Present illness Narrative* Marco A Esqueda MD - 11/11/2021 7:42 AM EDT PATIENT NAME: Pablo Felix DATE: 11/11/2021 PRIMARY CARE PHYSICIAN: Jamar Fall, OTHER PHYSICIANS: Dr. Anthony Scruggs, Dr. Khan, [facility] Cardiology Portions of this encounter note have been copied from my note from 10/28/2021 and has been updated where appropriate, and reflect my current medical decision making from today. CC: This is a 76 year old male with recently diagnosed metastatic prostate cancer, seen for scheduled follow-up. INTERIM HISTORY: Since the patient's initial visit here he underwent staging scans at [facility] on 11/05/2021. Bone scan revealed [...] Each once daily. To test blood sugar Igcnkhjtlletb-Ebdfobds-Kzlfyr (MULTIVITAMIN 50 PLUS) tab Take 1 tablet [...] Radical retropubic prostatectomy and bilateral pelvic lymphadenectomy ([facility]) Poorly differentiated prostatic adenocarcinoma of [...] PSA 2.64 RADIOLOGY/OTHER STUDIES: 11/05/2021 CT chest/abdomen/pelvis ([facility]) Several sclerotic lesions consistent with metastatic disease. No evidence of visceral organ involvement or lymphadenopathy. 11/05/2021 Bone scan ([facility]) Multifocal osseous metastasis including the left femur at the lesser trochanter, right pubis symphysis, multiple ribs bilaterally. 01/22/2018 Nuclear bone scan ([facility]) New focal increased activity left frontal bone, left T8 vertebral body. 01/22/2018 MRI pelvis ([facility]) 4.5 cm area of T2 signal in the prostate bed. 07/24/2014 CT abdomen/pelvis ([facility]) Diffuse prostatic enlargement with indentation of the bladder base. Incidental 2.5 x 1 cm exophytic hypodense lesion adjacent to the pancreatic body. ASSESSMENT/PLAN: 1. Metastatic prostate cancer (HCC) - ICD9: 185, ICD10: C61 (primary diagnosis) The patient was diagnosed with early-stage high-grade prostate cancer in June 2014 (TRUS [id number]/02/2014). He underwent a radical prostatectomy on 11/05/2014. Pathology consistent with stage IIIC (pT2b, N0, M0), Halls 5+4 equal 9. Postop the patient's PSA [...] at <12. Staging scans were obtained at [facility] on 11/05/2021. Bone scan revealed [...] 414.01, ICD10: I25.10 Status post CABG 08/17/2014 ([facility]). Stable on current medications. Continue [...] CC: Dr. Anthony Scruggs documented in this encounterTrihealth Bethesda [facility] Hospital04-27-2022 Miscellaneous Notes* Telephone Encounter - Clementine Aguilar RN - 11/10/2021 3:03 PM EDT Pt reports his Enzalutamide was delivered. Will start this evening. Clementine Aguilar RN documented in this encounterTrihealth Bethesda North Hospital04-26-2022 Miscellaneous Notes* Telephone Encounter - Clementine Aguilar RN - 11/09/2021 2:31 PM EDT Per pt, his Enzalutamide is scheduled to arrive tomorrow morning. Patient started/will start taking Enzalutamide on 11/10/21. Clementine Aguilar RN documented in this encounterTrihealth Bethesda [facility] Hospital04-25-2022 Hospital Discharge instructions Patient Education 11/08/2021 [...] who: Are older than age 65. Are -Tong[place]. Are obese. Have a family history of [...] cells. Follow these instructions at home: Take cozq-wxo-loxotef and prescription medicines only as told by [...] 07/03/2006 Document Revised: 06/15/2018 Document Reviewed: 03/13/2017 [employer] Patient Education 2020 [employer]Chor[employer]. Follow Up Care 08/23/2021 13:26:07 With:KAEL JAMES, Anthony Lee, URL Address: [facility] [address], [place] [address]- [phone] When:05/10/2022 [facility] 04-21-2022 Miscellaneous Notes* Telephone Encounter - Clementine Aguilar RN - 11/04/2021 2:53 PM EDT Pt would like to get the 4th Covid vaccine when it's due. Dr Esqueda notified and gives the ok to proceed when due. Pt notified and verbalizes understanding. Clementine Aguilar RN documented in this encounterTrihealth Bethesda North Hospital04-21-2022 History of Present illness Narrative* Clementine [...] Information handout: Enzalutamide, Specialty Pharmacy Information : [facility] phone numbers: Yes [...] 5 minutes Clementine Aguilar RN * Aida Valerio, [facility] - 11/04/2021 2:49 PM EDT Images from the original note were not included. [facility] Department of Pharmacy Oncology Pharmacy Medication [...] Each once daily. To test blood sugar Umhsjfwcvjnhb-Gvgicirg-Makiba (MULTIVITAMIN 50 PLUS) tab Take 1 tablet [...] of chemotherapy NA - Followed up with [facility] for delivery of Free Xtandi Readiness [...] patient Rubin Luo RPh documented in this encounterTrihealth Bethesda North Hospital04-21-2022 Miscellaneous Notes* Telephone Encounter - Aida Luo RPh - 11/04/2021 10:54 AM EDT Confirmed with Leeo approval date 11/01/21 and that the specialty pharmacy, [facility], will reach out to Mr Felix 3-5 business days from approval date. If he does not hear from them by 11/10/21 we should call [facility] @ option 2. I informed Mr Felix of this, he has an appt 11/12/21 and said if he has not heard from them by then he will get their phone number from us. Rubin Luo RPh documented in this encounterTrihealth Bethesda North Hospital04-19-2022 Miscellaneous Notes* Telephone Encounter - Jennifer [...] him know to be expecting this call. [facility] will call patient to set up delivery for all fills. I do not see where he has had chemo education yet. Alba does he need to be set up with you? Thanks Rubin Luo RPh * Telephone Encounter - Andreina Castillo RP - 11/01/2021 10:55 AM EDT Patient called today. We completed a conference call with [employer] - they were ableto obtain [...] We will proceed free drug application through [employer]. Pharmacy to reach out to patient 10/29/2021 to notify. Brina Wang RPh * Telephone Encounter - Brina Wang RPh - 10/28/2021 3:08 PM EDT Ambulatory Pharmacy Prior Authorization Note Provider Intervention Required?: No- Pharmacy completed on your behalf. Drug: Xtandi Cover My Meds Carter: [id number] Determination: Approved Prior Authorization/Case #: [id number] Prior Authorization Expiration: 10/28/2022 Time to PA Submission in CMM: 15 min Time to PA Determination in CMM: Same day Additional Information: Co-Pay $3,111.12 For questions relating to this submission, please contact [facility] at [phone] documented in this encounterTrihealth Bethesda North Hospital04-19-2022 Miscellaneous Notes* Telephone Encounter - Zohra Avila PA-C - 11/02/2021 12:00 PM EDT CBC and CMP orders placed Zohra Avila PA-C * Telephone Encounter - Katie Rosen MA - 11/02/2021 11:57 AM EDT Patient has an appt on 11/11/21. Would you like labs, if so place orders. Katie Rosen MA documented in this encounterTrihealth Bethesda North Hospital04-18-2022 Miscellaneous Notes* Telephone Encounter - Clementine [...] him on the patient assistance program. Thanks, RADHA documented in this encounterTrihealth Bethesda North Hospital04-14-2022 Miscellaneous Notes* Telephone Encounter - Clementine Aguilar RN - 10/28/2021 1:12 PM EDT Voicemail message received from Sandra @ [facility]. Reports the pt's 1st dose of Lupron was given on 02/12/2018. Dr Esqueda notified. Clementine Aguilar RN * Telephone Encounter - Clementine Aguilar RN - 10/28/2021 12:[address] Esqueda requests that we contact Dr Scruggs' office for pt's Lupron start date. Call placed to [facility]. No answer. Message left requesting call back. Clementine Aguilar RN documented in this encounterTrihealth Bethesda North Hospital04-14-2022 Miscellaneous Notes* Telephone Encounter - Clementine Aguilar RN - 10/28/2021 1:12 PM EDT This encounter was opened in error. @[email or web address]@ documented in this encounter[facility] Miscellaneous Notes* Telephone Encounter - Christo Howard APRN.CNP - 10/25/2021 4:05 PM EDT Hold off for now. Christo Howard APRN.ANIMAL STUNNER * Telephone Encounter - Katie Rosen MA - 10/25/2021 11:01 AM EDT If patient needs labs, please sign/place orders for 10/28/21. Thanks. Katie Rosen MA documented in this encounterTri[facility] Evaluation note* Diagnosis Onset Date Resolution Status ASHD (arteriosclerotic heart disease) acute Cervical spondylosis acute Essential hypertension acute Hypercholesterolemia acute Malignant neoplasm of prostate July 17, 2014 acute Nonrheumatic aortic valve stenosis acute GRADY (obstructive sleep apnea) acute Type 2 diabetes mellitus with hyperglycemia acute [facility] Work Phone: Evaluation + Plan note Future Appointments Appointment Date:05/13/2022 08:45:00 AM Scheduled Provider:Anthony SCRUGGS MD Location:[facility] Appointment Type:URO Office Visit Diagnostic Tests Pending * PSA Total 11/08/21 Future Scheduled Tests Laboratory* Basic Metabolic Panel 09/20/21 [facility] evaluation + Plan note Future Appointments Appointment Date:10/28/2022 08:00:00 AM Scheduled Provider:Anthony SCRUGGS MD Location:[facility] Appointment Type:URO Office Visit Diagnostic Tests Pending * PSA Total 09/14/22 Future Scheduled Tests Laboratory* Basic Metabolic Panel 09/20/21 [facility] evaluation + Plan note Future Appointments Appointment Date:10/20/2023 08:45:00 AM Scheduled Provider:Anthony SCRUGGS MD Location:[facility] Appointment Type:URO Office Visit Diagnostic Tests Pending * PSA Total 04/17/23 [facility] evaluation + Plan note Future Appointments Appointment Date:04/19/2024 08:00:00 AM Scheduled Provider:Anthony SCRUGGS MD Location:[facility] Appointment Type:URO Office Visit Diagnostic Tests Pending * PSA Total 02/15/24 [facility] evaluation note* Diagnosis OPENED IN ERROR- Primary To allow closing an encounter opened in error (used in SmartSet) [facility] [...] neoplasm of prostate [facility] Diagnosis Malignant neoplasm of prostate (HCC)- Primary Malignant neoplasm of prostate [facility]* Diagnosis Malignant neoplasm of prostate (HCC)- Primary Malignant neoplasm of prostate [facility]* Diagnosis Malignant neoplasm of prostate (HCC)- Primary Malignant neoplasm of prostate 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, unspecified vessel or lesion type Essential hypertension Unspecified essential hypertension Type 2 diabetes mellitus without complication, without long-term current use of insulin (HCC) [facility] noteNo [employer] Other Evaluation note* Diagnosis Malignant neoplasm of prostate (HCC)- Primary Malignant neoplasm of prostate 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, unspecified vessel or lesion type Essential hypertension Unspecified essential hypertension Type 2 diabetes mellitus without complication, without long-term current use of insulin (HCC) [facility]* Diagnosis Malignant neoplasm of prostate (HCC)- Primary Malignant neoplasm of prostate [facility]* Diagnosis Malignant neoplasm of prostate (HCC)- Primary Malignant neoplasm of prostate [facility]* Diagnosis Malignant neoplasm of prostate (HCC)- Primary Malignant neoplasm of prostate 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, unspecified vessel or lesion type Essential hypertension Unspecified essential hypertension Type 2 diabetes mellitus without complication, without long-term current use of insulin (HCC) [facility]* Diagnosis Neoplasm of unspecified behavior of bone, soft tissue, and skin Actinic keratosis [facility] Diagnosis Malignant neoplasm of prostate (HCC)- Primary Malignant neoplasm of prostate [facility]* Diagnosis Malignant neoplasm of prostate (HCC)- Primary Malignant neoplasm of prostate Essential hypertension Unspecified essential hypertension 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, unspecified vessel or lesion type Type 2 diabetes mellitus without complication, without long-term current use of insulin (HCC) Lesion of skin of right ear Abdominal discomfort Abdominal pain, unspecified site [facility] Diagnosis Onset Date Resolution Status Cervical spondylosis acute Mass of skin of left shoulder acute Primary osteoarthritis, right shoulder acute Shoulder pain, right acute Neck pain noneactive ASHD (arteriosclerotic heart disease) acute Essential hypertension acute Hypercholesterolemia acute Malignant neoplasm of prostate July 17, 2014 acute Nonrheumatic aortic valve stenosis acute GRADY (obstructive sleep apnea) acute Type 2 diabetes mellitus with hyperglycemia acute [facility] Work Phone: Evaluation note* Diagnosis Malignant neoplasm of prostate (HCC)- Primary Malignant neoplasm of prostate [facility]* Diagnosis Malignant neoplasm of prostate (HCC)- Primary Malignant neoplasm of prostate documented in this encounter [facility] general Narrative - Reported* Type Description [...] [place] 08/2015 Hospitalization History see surgical hx [employer] Other History general Narrative - Reported* Type [...] [place] 08/2015 Hospitalization History see surgical hx [employer] Other Hospital course Narrative No data available for this section [facility] progress note No data available for this section [facility] Armando Medications Administered Section Inactive Administered Medications - [...] Specialty Diagnoses / Procedures Referred By Jeffery t Referred To Contact Diagnoses Actinic keratosis Long Boo, DESIGN ENGINEER AGRICULTURAL EQUIPMENT-ANIMAL STUNNER [address] [place] [address] Referral ID Status Reason Start Date Expiration Date V isits Requested Visits Authorized [id number] Pending Review 1 1 Reason *FU 06/06 Right fr ontal sinus mass and cerumen impaction Diagnosis 1 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) Diagnosis 2 Impacted cerumen of right ear (H61.21) Referral Organization [facility] Referring Provider First Name Jamar Referring Provider Last Name Juan David Referring Provider Specialty Internal Me dicine Referred Organization [facility] Referred Provider Emelina Louis Referred Address ,[place], [place],[address] Referred Provider Specialty Ear, Nose an d Throat Referral Priority Routine General Notes Incidental finding o n XR of orbits prior to MR of abdomen. He c/o right sided rhinorrhea and congestion. He denies alteration in smell or odor. He denies fever, chills or headache Missy Meadwos 05/30/2023 05:46:34 PM >received today, attachments made, [...] or prosecute any alcohol or drug abuse patient.[facility] HospitalIn the event this information is protected by the Federal Confidentiality of Alcohol and Drug Abuse Patient Records regulations: The Federal rules restrict any use of the information to criminally investigate or prosecute any alcohol or drug abuse patient.[facility] HospitalIn the event this information is protected by the Federal Confidentiality of Alcohol and Drug Abuse Patient Records regulations: The Federal rules restrict any use of the information to criminally investigate or prosecute any alcohol or drug abuse patient.[facility] HospitalIn the event this information is protected by the Federal Confidentiality of Alcohol and Drug Abuse Patient Records regulations: The Federal rules restrict any use of the information to criminally investigate or prosecute any alcohol or drug abuse patient.[facility] HospitalIn the event this information is protected by the Federal Confidentiality of Alcohol and Drug Abuse Patient Records regulations: The Federal rules restrict any use of the information to criminally investigate or prosecute any alcohol or drug abuse patient.[facility] HospitalIn the event this information is protected by the Federal Confidentiality of Alcohol and Drug Abuse Patient Records regulations: The Federal rules restrict any use of the information to criminally investigate or prosecute any alcohol or drug abuse patient.[facility] HospitalIn the event this information is protected by the Federal Confidentiality of Alcohol and Drug Abuse Patient Records regulations: The Federal rules restrict any use of the information to criminally investigate or prosecute any alcohol or drug abuse patient.[facility] HospitalIn the event this information is protected by the Federal Confidentiality of Alcohol and Drug Abuse Patient Records regulations: The Federal rules restrict any use of the information to criminally investigate or prosecute any alcohol or drug abuse patient.[facility] HospitalIn the event this information is protected by the Federal Confidentiality of Alcohol and Drug Abuse Patient Records regulations: The Federal rules restrict any use of the information to criminally investigate or prosecute any alcohol or drug abuse patient.[facility] HospitalIn the event this information is protected by the Federal Confidentiality of Alcohol and Drug Abuse Patient Records regulations: The Federal rules restrict any use of the information to criminally investigate or prosecute any alcohol or drug abuse patient.[facility] HospitalIn the event this information is protected by the Federal Confidentiality of Alcohol and Drug Abuse Patient Records regulations: The Federal rules restrict any use of the information to criminally investigate or prosecute any alcohol or drug abuse patient.[facility] HospitalIn the event this information is protected by the Federal Confidentiality of Alcohol and Drug Abuse Patient Records regulations: The Federal rules restrict any use of the information to criminally investigate or prosecute any alcohol or drug abuse patient.[facility] HospitalIn the event this information is protected by the Federal Confidentiality of Alcohol and Drug Abuse Patient Records regulations: The Federal rules restrict any use of the information to criminally investigate or prosecute any alcohol or drug abuse patient.[facility] HospitalIn the event this information is protected by the Federal Confidentiality of Alcohol and Drug Abuse Patient Records regulations: The Federal rules restrict any use of the information to criminally investigate or prosecute any alcohol or drug abuse patient.[facility] HospitalIn the event this information is protected by the Federal Confidentiality of Alcohol and Drug Abuse Patient Records regulations: The Federal rules restrict any use of the information to criminally investigate or prosecute any alcohol or drug abuse patient.[facility] HospitalIn the event this information is protected by the Federal Confidentiality of Alcohol and Drug Abuse Patient Records regulations: The Federal rules restrict any use of the information to criminally investigate or prosecute any alcohol or drug abuse patient.[facility] HospitalIn the event this information is protected by the Federal Confidentiality of Alcohol and Drug Abuse Patient Records regulations: The Federal rules restrict any use of the information to criminally investigate or prosecute any alcohol or drug abuse patient.[facility] HospitalIn the event this information is protected by the Federal Confidentiality of Alcohol and Drug Abuse Patient Records regulations: The Federal rules restrict any use of the information to criminally investigate or prosecute any alcohol or drug abuse patient.[facility] HospitalIn the event this information is protected by the Federal Confidentiality of Alcohol and Drug Abuse Patient Records regulations: The Federal rules restrict any use of the information to criminally investigate or prosecute any alcohol or drug abuse patient.[facility] HospitalIn the event this information is protected by the Federal Confidentiality of Alcohol and Drug Abuse Patient Records regulations: The Federal rules restrict any use of the information to criminally investigate or prosecute any alcohol or drug abuse patient.[facility] HospitalIn the event this information is protected by the Federal Confidentiality of Alcohol and Drug Abuse Patient Records regulations: The Federal rules restrict any use of the information to criminally investigate or prosecute any alcohol or drug abuse patient.[facility] HospitalIn the event this information is protected by the Federal Confidentiality of Alcohol and Drug Abuse Patient Records regulations: The Federal rules restrict any use of the information to criminally investigate or prosecute any alcohol or drug abuse patient.[facility] HospitalIn the event this information is protected by the Federal Confidentiality of Alcohol and Drug Abuse Patient Records regulations: The Federal rules restrict any use of the information to criminally investigate or prosecute any alcohol or drug abuse patient.[facility] HospitalIn the event this information is protected by the Federal Confidentiality of Alcohol and Drug Abuse Patient Records regulations: The Federal rules restrict any use of the information to criminally investigate or prosecute any alcohol or drug abuse patient.[facility] HospitalIn the event this information is protected by the Federal Confidentiality of Alcohol and Drug Abuse Patient Records regulations: The Federal rules restrict any use of the information to criminally investigate or prosecute any alcohol or drug abuse patient.[facility] HospitalIn the event this information is protected by the Federal Confidentiality of Alcohol and Drug Abuse Patient Records regulations: The Federal rules restrict any use of the information to criminally investigate or prosecute any alcohol or drug abuse patient.[facility] HospitalIn the event this information is protected by the Federal Confidentiality of Alcohol and Drug Abuse Patient Records regulations: The Federal rules restrict any use of the information to criminally investigate or prosecute any alcohol or drug abuse patient.[facility] HospitalIn the event this information is protected by the Federal Confidentiality of Alcohol and Drug Abuse Patient Records regulations: The Federal rules restrict any use of the information to criminally investigate or prosecute any alcohol or drug abuse patient.[facility] HospitalIn the event this information is protected by the Federal Confidentiality of Alcohol and Drug Abuse Patient Records regulations: The Federal rules restrict any use of the information to criminally investigate or prosecute any alcohol or drug abuse patient.[facility] HospitalIn the event this information is protected by the Federal Confidentiality of Alcohol and Drug Abuse Patient Records regulations: The Federal rules restrict any use of the information to criminally investigate or prosecute any alcohol or drug abuse patient.[facility] HospitalIn the event this information is protected by the Federal Confidentiality of Alcohol and Drug Abuse Patient Records regulations: The Federal rules restrict any use of the information to criminally investigate or prosecute any alcohol or drug abuse patient.[facility] HospitalIn the event this information is protected by the Federal Confidentiality of Alcohol and Drug Abuse Patient Records regulations: The Federal rules restrict any use of the information to criminally investigate or prosecute any alcohol or drug abuse patient.[facility] HospitalIn the event this information is protected by the Federal Confidentiality of Alcohol and Drug Abuse Patient Records regulations: The Federal rules restrict any use of the information to criminally investigate or prosecute any alcohol or drug abuse patient.[facility] Care Teams (unrecognized sec tion and content) Mechatronics Technician Relationship Specialty Start Date End Date Jamar Fall DO PCP - General Internal Medicine 08/04/14 Mechatronics Technician Relationship Specialty Start Date End Date Jamar Fall DO PCP - General Internal Medicine 08/04/14 Mechatronics Technician Relationship Specialty Start Date End Date Jamar Fall DO PCP - General Internal Medicine 08/04/14 Mechatronics Technician Relationship Specialty Start Date End Date Jamar Fall DO PCP - General Internal Medicine 08/04/14 Marco A Esqueda MD [facility] [address] Physician Hematology/Oncology 11/02/21 Christo Howard, DESIGN ENGINEER AGRICULTURAL EQUIPMENT.ANIMAL STUNNER [address] [place] [address] Nurse Practitioner Hematology/Oncology 11/02/21 Clementine Aguilar, RN [address] [place], [place] [id number] Specialty Inspector Welded Parts Hematology/Oncology 11/02/21 Mechatronics Technician Relationship Specialty Start Date End Date Jamar Fall DO PCP - General Internal Medicine 08/04/14 Marco A Esqueda MD [address] [place] [address] Physician Hematology/Oncology 11/02/21 Christo Howard, DESIGN ENGINEER AGRICULTURAL EQUIPMENT.ANIMAL STUNNER [address] [place] [address] Nurse Practitioner Hematology/Oncology 11/02/21 Clementine Aguilar, RN [address] [place] [address] Specialty Inspector Welded Parts Hematology/Oncology 11/02/21 Mechatronics Technician Relationship Specialty Start Date End Date Jamar Fall DO PCP - General Internal Medicine 08/04/14 Marco A Esqueda MD [address] [place] [address] Physician Hematology/Oncology 11/02/21 Christo Howard, DESIGN ENGINEER AGRICULTURAL EQUIPMENT.ANIMAL STUNNER [address] [place] [address] Nurse Practitioner Hematology/Oncology 11/02/21 Clementine Aguilar, RN [address] [place] [address] Specialty Inspector Welded Parts Hematology/Oncology 11/02/21 Mechatronics Technician Relationship Specialty Start Date End Date Jamar Fall, DO PCP - General Internal Medicine 08/04/14 Marco A Esqueda MD [address] [place] [address] Physician Hematology/Oncology 11/02/21 Christo Howard, DESIGN ENGINEER AGRICULTURAL EQUIPMENT.[facility] [address] [place] [address] Nurse Practitioner Hematology/Oncology 11/02/21 Clementine Aguilar, ANITHA [address] [place] [address] Specialty Inspector Welded Parts Hematology/Oncology 11/02/21 Mechatronics Technician Relationship Specialty Start Date End Date Jamar Fall, DO PCP - General Internal Medicine 08/04/14 Marco A Esqueda MD [address] [place] [address] Physician Hematology/Oncology 11/02/21 Christo Howard, DESIGN ENGINEER AGRICULTURAL EQUIPMENT.ANIMAL STUNNER [address] [place] [address] Nurse Practitioner Hematology/Oncology 11/02/21 Clementine Aguilar, ANITHA [address] [place] [address] Specialty Inspector Welded Parts Hematology/Oncology 11/02/21 Mechatronics Technician Relationship Specialty Start Date End Date Jamar Fall, DO PCP - General Internal Medicine 08/04/14 Marco A Esqueda MD [address] [place] [address] Physician Hematology/Oncology 11/02/21 Christo Howard, DESIGN ENGINEER AGRICULTURAL EQUIPMENT.ANIMAL STUNNER [address] [place] [address] Nurse Practitioner Hematology/Oncology 11/02/21 Clementine Aguilar, RN [address] [place], [place] [id number] Specialty Inspector Welded Parts Hematology/Oncology 11/02/21 Mechatronics Technician Relationship Specialty Start Date End Date Jamar Fall, DO PCP - General Internal Medicine 08/04/14 Marco A Esqueda MD [address] [place] [address] Physician Hematology/Oncology 11/02/21 Christo Howard, DESIGN ENGINEER AGRICULTURAL EQUIPMENT.ANIMAL STUNNER [address] [place] [address] Nurse Practitioner Hematology/Oncology 11/02/21 Clementine Aguilar, ANITHA [address] [place] [address] Specialty Inspector Welded Parts Hematology/Oncology 11/02/21 Mechatronics Technician Relationship Specialty Start Date End Date Jamar Fall, DO PCP - General Internal Medicine 08/04/14 Marco A Esqueda MD [address] [place] [address] Physician Hematology/Oncology 11/02/21 Christo Howard, DESIGN ENGINEER AGRICULTURAL EQUIPMENT.ANIMAL STUNNER [address] [place] [address] Nurse Practitioner Hematology/Oncology 11/02/21 Clementine Aguilar, ANITHA [address] [place] [address] Specialty Inspector Welded Parts Hematology/Oncology 11/02/21 Mechatronics Technician Relationship Specialty Start Date End Date Jamar Fall DO PCP - General Internal Medicine 08/04/14 Marco A Esqueda MD [address] [place] [address] Physician Hematology/Oncology 11/02/21 Christo Howard, DESIGN ENGINEER AGRICULTURAL EQUIPMENT.ANIMAL STUNNER [address] [place] [address] Nurse Practitioner Hematology/Oncology 11/02/21 Clementine Aguilar, RN [address] [place] [address] Specialty Inspector Welded Parts Hematology/Oncology 11/02/21 Mechatronics Technician Relationship Specialty Start Date End Date Jamar Fall, DO PCP - General Internal Medicine 08/04/14 Marco A Esqueda MD [address] [place] [address] Physician Hematology/Oncology 11/02/21 Christo Howard, DESIGN ENGINEER AGRICULTURAL EQUIPMENT.ANIMAL STUNNER [address] [place] [address] Nurse Practitioner Hematology/Oncology 11/02/21 Clementine Aguilar, RN [address] [place] [address] Specialty Inspector Welded Parts Hematology/Oncology 11/02/21 Mechatronics Technician Relationship Specialty Start Date End Date Jamar Fall, DO PCP - General Internal Medicine 08/04/14 Marco A Esqueda MD [address] [place] [address] Physician Hematology/Oncology 11/02/21 Christo Howard, DESIGN ENGINEER AGRICULTURAL EQUIPMENT.ANIMAL STUNNER [address] [place] [address] Nurse Practitioner Hematology/Oncology 11/02/21 Clementine Aguilar, RN [address] [place], [place] [id number] Specialty Inspector Welded Parts Hematology/Oncology 11/02/21 Mechatronics Technician Relationship Specialty Start Date End Date Jamar Fall DO PCP - General Internal Medicine 08/04/14 Marco A Esqueda MD [address] [place] [address] Physician Hematology/Oncology 11/02/21 Christo Howard, DESIGN ENGINEER AGRICULTURAL EQUIPMENT.ANIMAL STUNNER [address] [place] [address] Nurse Practitioner Hematology/Oncology 11/02/21 Clementine Aguilar, ANITHA [address] [place] [address] Specialty Inspector Welded Parts Hematology/Oncology 11/02/21 Mechatronics Technician Relationship Specialty Start Date End Date Jamar Fall DO PCP - General Internal Medicine 08/04/14 Marco A Esqueda MD [address] [place] [address] Physician Hematology/Oncology 11/02/21 Christo Howard, DESIGN ENGINEER [employer]GRICULTURAL EQUIPMENT.ANIMAL STUNNER [address] [place] [address] Nurse Practitioner Hematology/Oncology 11/02/21 Clementine Aguilar, ANITHA [address] [place] [address] Specialty Inspector Welded Parts Hematology/Oncology 11/02/21 Mechatronics Technician Relationship Specialty Start Date End Date Jamar Fall DO PCP - General Internal Medicine 08/04/14 Marco A Esqueda MD [address] [place] [address] Physician Hematology/Oncology 11/02/21 Christo Howard, ROCHELLE.ANIMAL STUNNER [address] [place] [address] Nurse Practitioner Hematology/Oncology 11/02/21 Clementine Aguilar, ANITHA [address] [place] [address] Specialty Inspector Welded Parts Hematology/Oncology 11/02/21 Mechatronics Technician Relationship Specialty Start Date End Date Jamar Fall DO PCP - General Internal Medicine 08/04/14 Marco A Esqueda MD [address] [place] [address] Physician Hematology/Oncology 11/02/21 Christo Howard, DESIGN ENGINEER AGRICULTURAL EQUIPMENT.ANIMAL STUNNER [address] [place] [address] Nurse Practitioner Hematology/Oncology 11/02/21 Clementine Aguilar, ANITHA [address] [place] [address] Specialty Inspector Welded Parts Hematology/Oncology 11/02/21 Mechatronics Technician Relationship Specialty Start Date End Date Jamar Fall DO PCP - General Internal Medicine 08/04/14 Marco A Esqueda MD [address] [place] [address] Physician Hematology/Oncology 11/02/21 Christo Howard DESIGN ENGINEER AGRICULTURAL EQUIPMENT.ANIMAL STUNNER [address] [place] [address] Nurse Practitioner Hematology/Oncology 11/02/21 Clementine Aguilar, ANITHA [address] [place] [address] Specialty Inspector Welded [employer] Hematology/Oncology 11/02/21 Mechatronics Technician Relationship Specialty Start Date End Date Jamar Fall DO PCP - General Internal Medicine 08/04/14 Marco A Esqueda MD [address] [place] [address] [place] [address] Physician Hematology/Oncology 11/02/21 Christo Howard, DESIGN ENGINEER AGRICULTURAL EQUIPMENT.ANIMAL STUNNER [address] [place] [address] [place] [address] Nurse Practitioner Hematology/Oncology 11/02/21 Clementine Aguilar, ANITHA [address] [place] [address] Specialty Inspector Welded Parts Hematology/Oncology 11/02/21 Mechatronics Technician Relationship Specialty Start Date End Date Jamar Fall MD [address] [place] [id number] PCP - General Internal Medicine 05/31/23 Mechatronics Technician Relationship Specialty Start Date End Date Jamar Fall MD [address] [place] [id number] PCP - General Internal Medicine 05/31/23 Mechatronics Technician Relationship Specialty Start Date End Date Jamra Fall DO PCP - General Internal Medicine 08/04/14 Marco A Esqueda MD [address] [place] [address] Physician Hematology/Oncology 11/02/21 Christo Howard, DESIGN ENGINEER AGRICULTURAL EQUIPMENT.ANIMAL STUNNER [address] [place] [address] Nurse Practitioner Hematology/Oncology 11/02/21 Clementine Aguilar, ANITHA [address] [place] [address] Specialty Inspector Welded Parts Hematology/Oncology 11/02/21 Mechatronics Technician Relationship Specialty Start Date End Date Jamar Fall DO PCP - General Internal Medicine 08/04/14 Marco A Esqueda MD [address] [place] [address] [place] [address] Physician Hematology/Oncology 11/02/21 Christo Howard, DESIGN ENGINEER AGRICULTURAL EQUIPMENT.ANIMAL STUNNER [address] [place] [address] Nurse Practitioner Hematology/Oncology 11/02/21 Clementine Aguilar, ANITHA [address] [place] [address] Specialty Inspector Welded [employer] Hematology/Oncology 11/02/21 Team Status: Active Member Role Status Dates Jamar Fall DO Primary Care Provider Active Team Status: Active Member Role Status Dates Jamar Fall DO Primary Care Provider Active Start: September 06, 2023 PRIMO Marte Attending Provider Active St art: September 06, 2023 Team Status: Inactive Member Role Status Dates Jamar Fall DO Primary Care Jose lee Attending Provider Active Start: September 12, 2023 [...] November 23, 2023 End: November 23, 2023 Mechatronics Technician Relationship Specialty Start Date End Date Juan David Jamar JessicaDO PCP - General Internal Medicine 08/04/14 Marco A Esqueda MD [address] [place] [address] Physician Hematology/Oncology 11/02/21 Christo Howard, DESIGN ENGINEER AGRICULTURAL EQUIPMENT.ANIMAL STUNNER [address] [place], [place] [id number] Nurse Practitioner Hematology/Oncology 11/02/21 Clementine Aguilar, ANITHA [address] [place] [address] Specialty Inspector Welded Parts Hematology/Oncology 11/02/21 Mechatronics Technician Relationship Specialty Start Date End Date Jamar Fall DO PCP - General Internal Medicine 08/04/14 Marco A Esqueda MD [address] [place] [address] Physician Hematology/Oncology 11/02/21 Christo Howard, DESIGN ENGINEER AGRICULTURAL EQUIPMENT.ANIMAL STUNNER [address] [place] [address] Nurse Practitioner Hematology/Oncology 11/02/21 Clementine Aguilar, ANITHA [address] [place] [address] Specialty Inspector Welded [employer] Hematology/Oncology 11/02/21 Team Status: Active Member Role Status Dates Jamar Fall DO Primary Care Provider Active Start: January 25, 2024 SAMAN Collins Attending Provider Active Start: January 25, 2024 Team Status: Inactive Member Role Status Dates Jamar Fall DO Primary Care Provide r, Attending Provider Active Start: March 26, 2024 End: March 26, 2024 Mechatronics Technician Relationship Specialty Start Date End Date Jamar Fall DO PCP - General Internal Medicine 08/04/14 Marco A Esqueda MD [address] [facility] [facility] [place] [address] Physician Hematology/Oncology 11/02/21 Christo Howard, DESIGN ENGINEER AGRICULTURAL EQUIPMENT.ANIMAL STUNNER [address] [place] [address] Nurse Practitioner Hematology/Oncology 11/02/21 Clementine Aguilar, ANITHA [address] [facility] [address] Specialty Inspector Welded Parts Hematology/Oncology 11/02/21 Mechatronics Technician Relationship Specialty Start Date End Date Jamar Fall DO PCP - General Internal Medicine 08/04/14 Marco A Esqueda MD [address] [facility] [place] [address] Physician Hematology/Oncology 11/02/21 Christo Howard, DESIGN ENGINEER AGRICULTURAL EQUIPMENT.ANIMAL STUNNER [address] [place] [address] Nurse Practitioner Hematology/Oncology 11/02/21 Clementine Aguilar, RN [address] [place] [address] Specialty Inspector Welded Parts Hematology/Oncology 11/02/21 Reason for Visit (unrecogniz ed [...] DENOSUMAB INJECTION Marco A Esqueda MD [address] [place] [address] [place] [address] Himanshu Treat Ariella Mc [address] [place] [address] Referral ID Status Reason Start Date Expiration Date V isits Requested Visits Authorized [id number] Authorized 11/11/2021 07/16/2022 99 99 Reason Comments [...] R ear Marco A Esqueda MD [address] [place] [address] Lety Holguin MD [address] [place] [address] Referral ID Status Reason Start Date Expiration Date Visits Re quested Visits Authorized [id number] Closed 08/04/2023 01/31/2024 1 1 Reason Comments Prostate Cancer 3 month follow up Established Patient Reason Comments Refill Request Reason Onset Date Comments Refill Request 04/01/2024 (unrecognized sect ion and content) No Status Records FoundNo Status Records FoundNo Status Records FoundNo Status Records FoundNo Status Records Found INFORMATION SOURCE (unrecogn ized section and content) DATE CREATED AUTHOR 10/31/2022 [facility] DATE CREATED AUTHOR AUTHOR'S ORGANIZ ATION 02/06/2024 [facility] DATE CREATED AUTHOR AUTHOR'S ORGANIZ ATION 03/02/2024 [facility] DATE CREATED AUTHOR AUTHOR'S ORGANIZ ATION 04/02/2024 [facility] DATE CREATED AUTHOR AUTHOR'S ORGANIZ ATION [facility] Administered Medications - up to 3 [...] BE BASED ON THE PRIMARY CLINICAL RECORDS. [employer] provides no warranty or guarantee of the accuracy or completeness of information in this document.
[2024-04-22] MEDS: LACTATED RINGER'S SOLUTION 1,000 ML 50 ML IV (12:55)
[2024-04-22] MEDS: CEFAZOLIN SODIUM 2 GM/50 ML D5W PREMIX IV (13:17)
[2024-04-22] MEDS: BUPIVACAINE HCL 0.5% PF 50 MG/10 ML VIAL 5 ML INJ (13:22)
[2024-04-22] MEDS: LIDOCAINE HCL 1%-EPINEPHRINE 1:100,000 10 ML MDV 5 ML INJ (13:22)
[2024-04-22 13:43] VITALS: BP 137/61; PULSE 59; TEMP 36.3; O2SAT 96
--- NOTE | 2024-04-22 13:47 | PM.ORPRC ---
Procedure Note Date of procedure: 04/22/24 Pre-op diagnosis: Left carpal tunnel syndrome Post-op diagnosis: same as pre-op Procedure: Procedure: Left endoscopic carpal tunnel release Surgeon: Alesia Anesthesia: Local with MAC Estimated blood loss:Minimal Tourniquet time: 2 Minutes at 250 mmHg Complications: None Indications for Surgery: The patient has had signs and symptoms of carpal tunnel syndrome that have failed conservative treatment. Options were discussed with the patient as well as risks and benefits and they have elected to proceed with the surgery. Operative procedure: Prior to surgery the patient received IV antibiotics. The operative extremity was marked preoperatively. After informed consent was obtained the patient was brought to the operating room where MAC anesthesia was administered. Preoperatively 5 mm 0.5% Marcaine plain with 5 mm 1% lidocaine with epinephrine were infiltrated in the operative sight. The arm was then prepped and draped in the usual sterile fashion after placement of a well padded tourniquet. The arm was elevated, exsanguinated, and the tourniquet was inflated. A 1 cm incision was then made in a preexisting distal wrist crease. Hemostasis was achieved with bipolar electrocautery. Blunt dissection was then carried down to the forearm fascia where a U-based flap was created. Proximally the fascia was incised for 2 cm under direct visualization. Attention was then turned to the endoscopic carpal tunnel release. The synovial elevator was used to clear the underside of the transverse carpal ligament of soft tissue. Sequential dilators were then placed. The endoscopic carpal tunnel released instrument was then placed. The transverse fibers were then identified and release from distal to proximal. The ligament was completely release. The tourniquet was deflated and hemostasis was achieved. The wound was irrigated and closed with a nylon suture. A sterile dressing was placed. The patient was brought to the recovery room. There were no preoperative or postoperative complications. Anesthesia: MAC and local Surgeon: Cristhian Dumas Estimated blood loss (mL): 1 Pathology: none sent Condition: stable Disposition: PACU
[2024-04-22 13:58] VITALS: BP 161/65; PULSE 54; O2SAT 97
[2024-04-22 14:13] VITALS: BP 167/61; PULSE 54
== END 2024-04-22 14:20 | disposition home or self-care (01) ==
PROVIDERS: PCP Internal Medicine; Visit Provider Orthopaedic Surgery
PROC: (CPT 29848; principal; 2024-04-22 13:00)
DX: G56.02 Carpal tunnel syndrome, left upper limb (principal); I25.10 Atherosclerotic heart disease of native coronary artery without angina pectoris; I10 Essential (primary) hypertension; E78.5 Hyperlipidemia, unspecified; Z95.1 Presence of aortocoronary bypass graft; I35.2 Nonrheumatic aortic (valve) stenosis with insufficiency; I08.1 Rheumatic disorders of both mitral and tricuspid valves; E11.9 Type 2 diabetes mellitus without complications; Z79.84 Long term (current) use of oral hypoglycemic drugs; Z85.46 Personal history of malignant neoplasm of prostate; Z90.79 Acquired absence of other genital organ(s)
CPT/HCPCS: 29848; 82948; J0665; J0690; J2405; J2704; J3010

== ENCOUNTER 2024-05-22 09:48 | Outpatient (OUT) | payer MEDICARE, OTHER, SELFPAY ==
--- NOTE | 2024-05-22 10:03 | P.CN_ITS ---
Consult Note: HPI Data of Consult Patient: known to practice within the last 3 years Requesting Physician: Cheryl Cox NP Primary Care Provider: Non-Staff Physician, MD Consult Narrative Reason for consult: chronic neck pain Narrative: Rajesh Felix a pleasant 78 year old male presents for evaluation and management of chronic left sided neck pain. Patient has historically benefitted from injection therapy in neck and low back, unsure of type, greater than 10 years ago. Patient reporting pain 2/10 tightness in left neck increasing to 6/10 with twisting, upon waking up. Pain decreased with ice. PT completed with mild benefit. Has failed tylenol, voltaren, and salon pas. Previous C7-T1 MARNIE providing 50% improvement ongoing in radicular symptoms. cc:: CC: Cheryl Cox NP Review of Systems ROS Status of ROS 10 or more systems reviewed and unremark able except as noted in history and below Musculoskeletal Reports: neck pain PFSH PFSH Medical History (Updated 04/01/24 @ 10:31 by Josie Souza NP) Anemia ?D64.9 - Anemia, unspecified (ICD-10) History of blood transfusion ?Z92.89 - Personal history of other medical treatment (ICD-10) Sleep apnea ?G47.30 - Sleep apnea, unspecified (ICD-10) COVID-19 ?U07.1 - COVID-19 (ICD-10) Prostate cancer ?C61 - Malignant neoplasm of prostate (ICD-10) Coronary artery disease ?I25.10 - Atherosclerotic heart disease of [place] coronary artery without angina pectoris (ICD-10) Diabetes ?E11.9 - Type 2 diabetes mellitus without complications (ICD-10) Arthritis ?M19.90 - Unspecified osteoarthritis, unspecified site (ICD-10) Neck pain ?M54.2 - Cervicalgia (ICD-10) Surgical History 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 - Presence of aortocoronary bypass graft (ICD-10) History of appendectomy ?Z90.49 - Acquired absence of other specified parts of digestive tract (ICD- 10) S/P prostatectomy ?Z90.79 - Acquired absence of other genital organ(s) (ICD-10) History of colonoscopy ?Z98.890 - Other specified postprocedural states (ICD-10) S/P epidural steroid injection ?Z92.241 - Personal history of systemic steroid therapy (ICD-10) Family History Other Cancer Family history of myocardial infarction Social History Within the past year, how often did you have a drink containing alcohol: 4 or more times a week Within the past year, how many standard drinks containing alcohol did you have on a typical day: 1 or 2 Total score: 0 Score interpretation: A score less than 4 is consistent with normal alcohol consumption. Smoking status: Never smoker Non-prescribed substance use: denies use Previous occupational history: [employer] Highest level of school completed/degree received: Associate degree: occupational, technical, vocational program Meds Home Medications and Allergies Home Medications ?Medication ?Instructions ?Recorded ?Confirmed ?Type CALCIUM & D3 .QD 12/13/23 History aspirin 81 mg capsule 81 mg PO DAILY 12/13/23 04/22/24 History atorvastatin 40 mg tablet 40 mg PO DAILY 12/13/23 04/22/24 History enzalutamide 80 mg tablet (Xtandi) 80 mg PO DAILY 12/13/23 04/22/24 History glimepiride 1 mg tablet 0.5 mg PO DAILY 12/13/23 04/22/24 History metformin 500 mg tablet 1,000 mg PO BID 12/13/23 04/22/24 History metoprolol succinate 25 mg 25 mg PO Q12H 12/13/23 04/22/24 History tablet,extended release 24 hr multivitamin with iron (Daily 1 tab PO DAILY 12/13/23 04/22/24 History Vites/Iron tablet) lisinopril 20 1 tab PO QPM 04/01/24 04/22/24 History mg-hydrochlorothiazide 12.5 mg tablet hydrocodone 5 mg-acetaminophen 325 1 tab PO Q6H PRN pain #8 tabs 04/08/24 04/22/24 Rx mg tablet Allergies Allergy/AdvReac Type Severity Reaction Status Date / Time Penicillins Allergy Mild Rash Verified 04/01/24 10:55 Exam Constitutional Documenting provider has reviewed patient's vital signs: yes Common normals: no apparent distress, oriented x3, healthy appearing, alert and well nourished General appearance: cooperative HENMT Common normals: normocephalic, hearing grossly normal bilaterally and moist oral mucous membranes Head and scalp: normocephalic Eye Common normals: PERRL Pupil: PERRL Neck & C-Spine Common normals: full ROM General: normal visual inspection Cervical spine: cervical ROM normal, pain with cervical ROM and paracervical muscle tenderness Other: pain over left C3-6 facets, positive facet loading negative sprulings sensation intact BUE strength 5/5 in BUE Chest Common normals: inspection of chest normal Respiratory Common normals: normal respiratory effort, no retractions and no use of accessory muscles Neuro Common normals: oriented x3, CN's II-XII intact bilaterally, moves all extremities, no focal motor deficits, no sensory deficits noted and deep tendon reflexes 2+ bilaterally Sensorium/orientation: alert Motor exam: strength 5/5 throughout and no movement abnormalities noted Psych Common normals: mental status grossly normal, thought process normal, cooperative, affect normal, speech normal and activity/motor behavior normal Speech: normal speech Thought process: normal thought process Results Additional Findings Additional findings: If on a controlled substance or opioids, I have checked an [place] report on this patient and there are no aberrancies noted in the prescribing history.??If on a controlled substance or opioid a drug screen was completed and reviewed within the last year, and if there has not been a drug screen completed we ordered one today to monitor higher risk, state monitored pain medication use. As part of providing excellent, safe, comprehensive care, the following was completed at our patient's visit: 1. A medication reconciliation and review to ensure accurate knowledge of current/active medications, including asking our patients to inform us about any [id number] medications or herbal remedies/nutritional supplements/alternative remedies. 2. A review to specifically ensure our patients have had annual screening for screening for depression, screening for tobacco use, and screening for unhealthy alcohol use. For concerning screenings had a discussion with the patient, provided patient education, and recommended follow-up with primary care provider when appropriate. If patient noted with a risk of falling, they received education on strength, gait, and balance training to prevent future risk of falling. Assessment and Plan Assessment and Plan (1) Cervical spondylosis: Assessment and Plan: The patient has had over 3 months of moderate to severe left sided neck pain with functional impairment and inadequate response to conservative care including NSAIDS (unless there are contraindication such as concurrent blood thinners), multiple oral or topical pain medications, and home exercise program/physical therapy.? Patient has completed >6 weeks of guided home exercise program and/or formal physical therapy program without relief of their symptoms.? I have reviewed the imaging of the cervical spine and no red flags were identified.? The imaging reveals radiographic findings consistent with cervical spondylosis We discussed the risks and benefits of the procedure with the patient, and we are NOT planning on using sedation as outlined in the guidelines from Medicare unless there is a documented reason that sedation would be strongly recommended.?? ?The procedure will be completed with fluoroscopic guidance.? (2) Cervical radiculopathy: (3) Myofascial pain: Plan Left C4-5 C5-6 MBB x2 working towards RFA continue HEP as tolerated continue current medications f/u after each injection
== END 2024-05-22 09:49 | disposition home or self-care (01) ==
LOC: PM 09:48
PROVIDERS: Visit Provider Nurse Practitioner
DX: M47.812 Spondylosis without myelopathy or radiculopathy, cervical region (principal); M54.12 Radiculopathy, cervical region; M79.18 Myalgia, other site
CPT/HCPCS: G0463

== ENCOUNTER 2024-06-03 09:16 | Outpatient (OUT) | payer MEDICARE, OTHER, SELFPAY ==
--- NOTE | 2024-06-03 09:18 | MR_ITS ---
[place] [id number] Patient Name: PABLO ONEIL MRN: [id number] date: 1945 Sex: M Assigned Patient Location: [facility] Current Patient Location: Accession/Order Number: [id number] Exam Date: 06/03/2024 09:58 Report Date: 06/05/2024 07:11 At the request of: LISSA FALL Procedure: MR abdomen wo con EXAMINATION: MR abdomen wo con HISTORY: Mass Of Pancreas K86.89 COMPARISON: 04/20/2023 TECHNIQUE: MRCP was performed without contrast for evaluation of the common bile duct and pancreatic duct. FINDINGS: GALLBLADDER: No abnormal distention, wall thickening, mass, or free fluid. BILE DUCTS: No stricture, abnormal dilation, or filling defect. PANCREAS: Diffuse pancreatic atrophy. Scattered pancreatic cystic lesions the largest along the anterior aspect of the body bilobed measuring 3.6 x 1.5 cm. The second largest lesion is along the medial aspect of the pancreatic head measuring 1.3 x 0.8 cm, slightly decreased in size OTHER: Negative. MR/MR abdomen wo con IMPRESSION: Stable cystic pancreatic lesions, Electronically authenticated by: FEDE AYOUB Date: 06/05/2024 07:11
--- NOTE | 2024-06-03 09:19 | XR_ITS ---
The [address] [address] Patient Name: PABLO ONEIL MRN: [id number] date: 1945 Sex: M Assigned Patient Location: RAD Current Patient Location: [facility] Accession/Order Number: [id number] Exam Date: 06/03/2024 09:22 Report Date: 06/03/2024 09:43 At the request of: LISSA FALL Procedure: XR foreign body eye ISMA EXAMINATION: XR foreign body eye ISMA HISTORY: Foreign Body Eye Screening COMPARISON: No relevant comparison available. FINDINGS: ORBITS: Negative for a metallic foreign body. OTHER: Dense opacity/mass within right frontal sinus. XR/XR foreign body eye ISMA IMPRESSION: 1. No radiopaque foreign body within the orbits. 2. Mass versus dense inspissated secretions within right frontal sinus. CT imaging of the sinuses is recommended for further evaluation. Electronically authenticated by: CYNTHIA TORRES Date: 06/03/2024 09:43
--- OUTSIDE RECORDS SUMMARY | 2024-06-03 09:39 | XMS_ITS | CCD ---
Author Organization [facility] Care Team Providers Care Rn Plastics Name Role Phone Jamar Fall DO Primary Care Provider Dheeraj JAMES, Marco A R Unavailable [phone] [facility] BLEACH MAKER.ALEXA, Christo Unavailable [phone] Lauren WELSH, Clementine Unavailable JAMAR FALL Primary Care Physician [phone] Jamar Fall DO Primary Care Provider Dheeraj JAMES, Marco A R Unavailable [facility] BLEACH MAKER.CLERK OPERATOR, Christo Unavailable [phone] Lauren WELSH, Clementine Unavailable [phone] Jamar Fall DO Primary Care Provider Dheeraj JAMES, Marco A R Unavailable [facility] BLEACH MAKER.ALEXA, Christo Unavailable [phone] Lauren WELSH, Clementine Unavailable Jamar Fall Unavailable [...] Consulting Unavaila ble Lauren WELSH, Clementine Unavailable [phone] Jamar Benedict MD Primary Care Provider Jamar Fall DO Primary Care Provider LONG BOO Attending Unavailable MARCO A ESQUEDA Referring Unavailable EMELINA LOUIS Attending Unavailable BALL, JAMAR E Referring Unavailable PABLO CHRISTINA Attending Unavailable LONG BOO Attending Unavailable ALEXIA FRANCO Attending Unavailable DANILOTABRIDGER STEVENS Attending Unavailable OLRA ENGLISH Attending Unavailable SCRUGGSAnthony Attending Unavailable SCRUGGSAnthony Attending Unavailable SCRUGGSAnthony Attending Unavailable BALL, JAMAR E Primary Care [...] Unavailable MARCO A ESQUEDA R Attending Unavailable DHEERAJ, MARCO A R Referring Unavailable BALL, JAMAR E Primary Care Unavailable BALL, JAMAR E Primary Care Unavailable MARCO A ESQUEDA R Referring Unavailable ESQUEDA, MARCO A R Referring Unavailable BALL, JAMAR E Primary Care Unavailable LYNNE ALARCON Attending Unavailable BALL, JAMAR E Primary Care Unavailable MARCO A ESQUEDA R Referring Unavailable BALL, JAMAR E Primary Care Unavailable DHEERAJ, MARCO A R Referring Unavailable BALL, JAMAR E Primary Care Unavailable CHRISTO HOWARD Attending Unavailable Allergies Allergy Classification Reported Allergen(s) Allergy Type Date of Onset Reaction(s) Facility (18 sources) Penicillins; Translations: [PENICILLINS] Drug Allergy 1 Unknown [facility] (20 sources) Penicillin G; Translations: [penicillin G benzathine] Drug Allergy 1 Unknown (qualifier value) [facility] (20 sources) Penicillins Drug Allergy 5 Unknown [facility] (20 sources) Simvastatin; Translations: [SIMVASTATIN] Drug Allergy 2 Unknown [facility] (1 source) Penicillins Drug allergy (disorder) 5 [facility] (1 source) Penicillin Drug Allergy Unknown [facility] Other (1 source) Allergies Reconciled Propensity to adverse reactions Unknown [place] Other (1 source) patient allergy list reviewed by nurse or physicia Propensity to adverse reactions 9 Comment:Done [place] Other (3 sources) Simvastatin Propensity to adverse [...] tablet (20 sources) HMG-CoA Reductase Inhibitor Start: 4 End: 4 take 1 tablet by mouth once daily in the evening Atorvastatin Discontinued 0 .ROUTE .COMPLEX 90 September 06, 2023 9:32am September 08, 2023 3:51pm TAKE 1 TABLET BY MOUTH ONCE EVERY EVENING Start: 04-17-2023 End: 09-06-2023 take 40 mg by mouth once daily Atorvastatin Active 40 MG PO Daily September 08, 2023 3:49pm Start: 02-04-2019 take 1 tablet by anupama th once daily atorvastatin 20 mg Tab 20 mg = 1 tab(s), Oral, Daily, Refills(s) 0 Start Date: 02/04/19 Status: Ordered Comment on above: Take 20 mg by mouth once daily. Take 40 mg by mouth once daily. calcium citrate 950 mg / cholecalciferol 250 unt oral tablet (18 sources) Vitamin D Start: 04-28-20 take 2 tablets by mouth once daily Calcium Citrate-Vitamin D3 200 mg-6.25 mcg (250 unit) tab Take 2 tablets by mouth once daily. 04/28/2022 Active Comment on above: Take 2 tablets by mo uth once daily. Contour Next - (20 sources) Contour Next - u se one test strip to check home blood sugar transcutaneous daily for 30 days Active Contour Next - u se one test strip to check home blood sugar daily Active enzalutamide 40 mg oral tablet (20 sources) Androgen Receptor Inhibitor Start: 04-01-2024 End: 05-08-2024 take 4 tablets by mouth once daily enzalutamide (XTANDI) 40 mg tablet Take 4 tablets (160 mg) by mouth once daily. 120 tablet 11 05/08/2024 Active Start: 05-08-2023 End: 04-01-2024 take 2 [...] tablet by mouth once daily hydrochlorothiazide-lisinopril 12.5 mg-2 0 mg Tab 1 tab(s), Oral, Daily, Refill(s) [...] bromide 0.042 mg/actuat metered dose nasal spray (14 sources) Anticholinergic Start: 10-20-2023 ipratropium Nasal 0.06% [place] Refill(s) 0 Start Date: 10/20/23 Status: Ordered [...] on above: TAKE 2 TABLETS BY [facility] ONCE A DAY WITH FOOD Take 1,000 mg by anupama once daily. Metoprolol (20 sources) beta-Adrenergic Jose [...] by mouth twice daily. Take by mouth. Tmtrvwudglwqw-Wlnpfmxp-Txvdf n (MULTIVITAMIN 50 PLUS) tab (20 sources) Multivitamins-Mi nerals-Lut ein (MULTIVITAMIN 50 PLUS) tab Take 1 tablet by mouth once daily. Active Multivitamins-Mi nerals-Lutein (MULTIVITAMIN 50 PLUS) tab Take 1 tablet by mouth once daily. 0 Active Comment on above: Take 1 tablet by anupama once daily. traMADol hydrochloride 50 mg oral tablet (2 sources) Opioid Agonist Start: 07-21-2022 traMADol HCl 50 MG 1 Orally every 8 hours as needed for 7 days Jul, Active Vitamin D3 (5 sources) Start: 06-22-2020 Vitamin D3 Start Date: [...] Comment on above: Take 1 tablet by [facility] twice daily. clopidogrel 75 mg oral tablet (2 sources) P2Y12 Platelet Inhibitor clopidogrel (PLAVIX) 75 mg tablet clopidogrel 75 mg tablet 0 Active Comment on above: clopidogrel 75 mg ta blet 1.7 ml denosumab 70 mg/ml injection (2 sources) RANK Ligand Inhibitor Start: 05-09-20 End: 05-09-20 inject 1 dose by subcutaneous injection once 120 mg, SUBCUTANEOUS, ONCE, 1 dose, On [place] 05/09/24 at 1000, REFRIGERATE Start: 02-02-2024 End: 02-02-2024 denosumab 120 mg [...] pain, unspecified] Episodic Calculus of urinary tract (8 sources) History of calculus of kidney; Translations: [Personal history of urinary calculi] Onset: 04-17-2023 Episodic Cancer of prostate (20 sources) Malignant tumor of prostate; Translations: [Malignant neoplasm of prostate] Onset: 07-02-2014 08-06-2014 Chronic Comment on above: S/p Radical prostate ctomy 10/2014 and EBRT 2018 Cancer of prostate (7 sources) History of malignant neoplasm of prostate; Translations: [Personal history of malignant neoplasm of prostate] Onset: 04-14-2023 12-23-2019 Episodic Conduction disorders (18 sources) Left bundle branch block; Translations: [Other left bundle branch block] Onset: 08-25-2014 Chronic Coronary atherosclerosis and other heart disease (20 sources) Coronary arteriosclerosis; Translations: [Atherosclerotic heart disease of [place] coronary artery without angina pectoris] Onset: 10-10-2014 [...] 01-01-2019 Chronic Genitourinary symptoms and ill-defined conditions (14 sources) Microscopic hematuria; Translations: [Nocturia] Onset: 04-14-2023 [...] conditions (not mental disorders or infectious disease) (15 sources) Raised prostate specific antigen; Translations: [Rising [...] Test Name Value Interpretation Reference Range Facility [facility] 05-09-2024 OVS Visit (SP) Office (H EMASA) PABLO FELIX ([id number]) 1945 M Date Time Provider Department 05/09/24 9:15 AM MARCO A ESQUEDA During your visit today, we recorded the following information about you: Temperature Pulse Respiration Blood pressure 97.3 degrees 62/minute 16/minute 141/62 Weight 92.1 kg Marco A Esqueda MD 05/10/2024 7:40 AM Signed PATIENT NAME: Pablo Felix DATE: 05/09/2024 PRIMARY CARE PHYSICIAN: Dr. Jamar Fall OTHER PHYSICIANS: Dr. Anthony Scruggs, Dr. Khan, [facility] Cardiology Portions of this encounter note have been copied from the note from 02/02/2024 and has been updated where appropriate, and reflect my current medical decision making from today. CC: This is a 79 year old male with metastatic prostate cancer, seen for scheduled follow-up. INTERIM HISTORY: Since the patient's last visit here his PSA increased slightly, and per Dr. Scruggs Lupron was resumed on 04/19/2024 with plans to continue every 6 months. He remains on Xtandi which he is tolerating well. On follow-up today he feels well. He does complain of intermittent diarrhea based on what he eats and when he takes his medications. No bone pain or other systemic symptoms. No new urinary symptoms. MEDICATIONS: Current Outpatient Medications Medication Sig enzalutamide (XTANDI) 40 mg tablet Take 4 tablets (160 mg) by mouth once daily. enzalutamide (XTANDI) 80 mg tablet TAKE 2 TABLETS (160 MG) BY MOUTH ONCE DAILY. ipratropium bromide (ATROVENT) 42 mcg (0.06 %) nasal spray 2 Sprays. Calcium Citrate-Vitamin D3 200 mg-6.25 mcg (250 unit) tab Take 2 tablets by mouth once daily. metoprolol succinate ER (TOPROL XL) 25 mg 24 hr tablet Take by mouth. Bverkjmuygxwm-Qxonqyfi-Cxuq in (MULTIVITAMIN 50 PLUS) tab Take 1 [...] Never Smokeless tobacco: Never Vaping Use Vaping status: Never Used Substance Use Topics Alcohol use: [...] paralysis, seizures or tremors. PHYSICAL EXAM: BP 141/62 Pulse 62 Temp 36.3 ?C (97.3 ?F) (Temporal) Resp 16 Wt 92.1 kg (203 lb 0.7 oz) SpO2 99% BMI 32.79 kg/m? ECOG PS: 0-1 General: Alert, oriented x 3. NAD. Non-toxic appearing. Well-nourished. HEENT: No scleral icterus. Heart: HRR s1s2 Lungs: Lungs CTA, no wheezing, rales, rhonchi or crackles ,non-labored breathing. Abdominal: Abd rounded but soft, NT, ND. Extremities: No edema or cyanosis. Skin: No rashes, bruising, or petechiae. Neuro: Non-focal exam without deficits. 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 Left base margin positive for neoplasm. Seminal vesicles with no diagnostic abnormality. 2 resected lymph nodes negative for neoplasm. LABS: Hemoglobin (g/dL) Date Value 05/03/2024 11.5 05/08/2018 12.8 Hematocrit (%) Date Value 05/03/2024 33.2 05/08/2018 36.8 WBC (k/uL) Date Value 1 (more content not included)... Normal [facility] CBC W Auto Differential pane l (Bld)on 05-03-2024 Basophils (Bld) [#/Vol] 0.03 10*3/uL Normal <0.11 [facility] Comment on above: Order Comment: Speci men Type: BLOOD SPECIMEN Ordering Facility: [facility] Address: [address] [place] [address] Performed By: #### 5 7021-8 #### [facility] CLIA [id number] [address] [place] [address] 65188 Basophils/100 WBC (Bld) 0.5 % Normal [facility] Comment on above: Order Comment: Speci men Type: BLOOD SPECIMEN Ordering Facility: [facility] Address: [address] [place] [address] Performed By: #### 5 7021-8 #### [facility] CLIA [id number] [address] [place] [address] 89202 Differential cell count method Nom (Bld) Auto Normal [facility] Comment on above: Order Comment: Speci men Type: BLOOD SPECIMEN Ordering Facility: [facility] Address: [address] [place] [address] Performed By: #### 5 7021-8 #### [facility] CLIA [id number] [address] [place] [address] 13791 Eosinophils (Bld) [#/Vol] 0.48 10*3/uL High <0.46 [facility] Comment on above: Order Comment: Speci men Type: BLOOD SPECIMEN Ordering Facility: [facility] Address: [address] [place] [address] Performed By: #### 5 7021-8 #### [facility] CLIA [id number] [address] [place] [address] 78522 Eosinophils/100 WBC (Bld) 8.0 % Normal [facility] Comment on above: Order Comment: Speci men Type: BLOOD SPECIMEN Ordering Facility: [facility] Address: [facility] [place] [address] Performed By: #### 5 7021-8 #### [facility] CLIA [id number] [address] [place] [address] 61147 Erythrocyte distribution width (RBC) [Ratio] 12.6 % Normal 11.5-15.0 [facility] Comment on above: Order Comment: Speci men Type: BLOOD SPECIMEN Ordering Facility: [facility] Address: [address] [place] [address] Performed By: #### 5 7021-8 #### [facility] CLIA [id number] [address] [place] [address] Hematocrit (Bld) [Volume fraction] 33.2 % Low 39.0-51.0 [facility] Comment on above: Order Comment: Speci men Type: BLOOD SPECIMEN Ordering Facility: [facility] Address: [address] [place] [address] Performed By: #### 5 7021-8 #### [facility] CLIA [id number] [address] [place] [address] 38905 Hemoglobin (Bld) [Mass/Vol] 11.5 g/dL Low 13.0-17.0 [facility] Comment on above: Order Comment: Speci men Type: BLOOD SPECIMEN Ordering Facility: [facility] Address: [address] [place] [address] Performed By: #### 5 7021-8 #### [facility] CLIA [id number] [address] [place] [address] 38740 Immature granulocytes (Bld) [#/Vol] 0.04 10*3/uL Normal <0.10 [facility] Comment on above: Order Comment: Speci men Type: BLOOD SPECIMEN Ordering Facility: [facility] Address: [address] [place] [address] Performed By: #### 5 7021-8 #### [facility] CLIA [id number] [address] [place] [address] 32148 Immature granulocytes/100 WBC (Bld) 0.7 % Normal [facility] Comment on above: Order Comment: Speci men Type: BLOOD SPECIMEN Ordering Facility: [facility] Address: [address] [place] [address] Performed By: #### 5 7021-8 #### [facility] CLIA [id number] [address] [place] [address] Lymphocytes (Bld) [#/Vol] 1.76 10*3/uL Normal 1.00-4.00 [facility] Comment on above: Order Comment: Speci men Type: BLOOD SPECIMEN Ordering Facility: [facility] Address: [address] [place] [address] Performed By: #### 5 7021-8 #### [facility] CLIA [id number] [address] [place] [address] Lymphocytes/100 WBC (Bld) 29.4 % Normal [facility] Comment on above: Order Comment: Speci men Type: BLOOD SPECIMEN Ordering Facility: [facility] Address: [address] [place] [address] Performed By: #### 5 7021-8 #### [facility] CLIA [id number] [address] [place] [address] 25092 MCH (RBC) [Entitic mass] 33.0 pg Normal 26.0-34.0 [facility] Comment on above: Order Comment: Speci men Type: BLOOD SPECIMEN Ordering Facility: [facility] Address: [address] [place] [address]48 Performed By: #### 5 7021-8 #### [facility] CLIA [id number] [address] [place] [address] 81740 MCHC (RBC) [Mass/Vol] 34.6 g/dL Normal 30.5-36.0 [facility] Comment on above: Order Comment: Speci men Type: BLOOD SPECIMEN Ordering Facility: [facility] Address: [address] [place] [address] Performed By: #### 5 7021-8 #### [facility] CLIA [id number] [address] [place] [address] 80877 MCV (RBC) [Entitic vol] 95.1 fL Normal 80.0-100.0 [facility] Comment on above: Order Comment: Speci men Type: BLOOD SPECIMEN Ordering Facility: [facility] Address: [address] [place] [address] Performed By: #### 5 7021-8 #### [facility] CLIA [id number] [address] [place] [address] 68610 Monocytes (Bld) [#/Vol] 0.48 10*3/uL Normal <0.87 [facility] Comment on above: Order Comment: Speci men Type: BLOOD SPECIMEN Ordering Facility: [facility] Address: [address] [place] [address] Performed By: #### 5 7021-8 #### [facility] CLIA [id number] [address] [place] [address] 94048 Monocytes/100 WBC (Bld) 8.0 % Normal [facility] Comment on above: Order Comment: Speci men Type: BLOOD SPECIMEN Ordering Facility: [facility] Address: [address] [place] [address] Performed By: #### 5 7021-8 #### [facility] CLIA [id number] [address] [place] [address] 57010 Neutrophils (Bld) [#/Vol] 3.19 10*3/uL Normal 1.45-7.50 [facility] Comment on above: Order Comment: Speci men Type: BLOOD SPECIMEN Ordering Facility: [facility] Address: [address] [place] [address] Performed By: #### 5 7021-8 #### [facility] CLIA [id number] [address] [place] [address] 57360 Neutrophils/100 WBC (Bld) 53.4 % Normal [facility] Comment on above: Order Comment: Speci men Type: BLOOD SPECIMEN Ordering Facility: [facility] Address: [address] [place] [address] Performed By: #### 5 7021-8 #### [facility] CLIA [id number] [address] [place] [address] 64706 Nucleated RBC (Bld) [#/Vol] 10*3/uL Normal <0.01 [facility] Comment on above: Order Comment: Speci men Type: BLOOD SPECIMEN Ordering Facility: [facility] Address: [address] [place] [address] Performed By: #### 5 7021-8 #### [facility] CLIA [id number] [address] [place] [address] 08255 Nucleated RBC/100 WBC (Bld) [Ratio] 0.0 /100 WBC Normal [facility] Comment on above: Order Comment: Speci men Type: BLOOD SPECIMEN Ordering Facility: [facility] Address: [address] [place] [address] Performed By: #### 5 7021-8 #### [facility] CLIA [id number] [address] [place] [address] 35860 Platelet mean volume (Bld) [Entitic vol] 9.3 fL Normal 9.0-12.7 [facility] Comment on above: Order Comment: Speci men Type: BLOOD SPECIMEN Ordering Facility: [facility] Address: [address] [place] [address] Performed By: #### 5 7021-8 #### [facility] CLIA [id number] [address] [place] [address] 18013 Platelets (Bld) [#/Vol] 192 10*3/uL Normal 150-400 [facility] Comment on above: Order Comment: Speci men Type: BLOOD SPECIMEN Ordering Facility: [facility] Address: [address] [place] [address] Performed By: #### 5 7021-8 #### [facility] CLIA [id number] [address] [place] [address] 82606 RBC (Bld) [#/Vol] 3.49 10*6/uL Low 4.20-6.00 [facility] Comment on above: Order Comment: Speci men Type: BLOOD SPECIMEN Ordering Facility: [facility] Address: [address] [place] [address] Performed By: #### 5 7021-8 #### [facility] CLIA [id number] [address] [place] [address] [place] [address] WBC (Bld) [#/Vol] 5.98 10*3/uL Normal 3.70-11.00 [facility] Comment on above: Order Comment: Speci men Type: BLOOD SPECIMEN Ordering Facility: [facility] Address: [address] [place], [place] [address] Performed By: #### 5 7021-8 #### [facility] CLIA [id number] [address] [place] [address] 39016 Comprehensive metabolic 2000 panelon 05-03-2024 Albumin [Mass/Vol] 3.9 g/dL Normal 3.9-4.9 [facility] Comment on above: Order Comment: Speci men Type: BLOOD SPECIMEN Ordering Facility: [facility] Address: [address] [place] [address] Performed By: #### 5 7021-8 #### [facility] CLIA [id number] [address] [place] [address] 33091 ALP [Catalytic activity/Vol] 71 U/L Normal 38-113 [facility] Comment on above: Order Comment: Speci men Type: BLOOD SPECIMEN Ordering Facility: [facility] Address: [address] [place] [address] Performed By: #### 5 7021-8 #### [facility] CLIA [id number] [address] [place] [address] 95202 ALT [Catalytic activity/Vol] 16 U/L Normal 10-54 [facility] Comment on above: Order Comment: Speci men Type: BLOOD SPECIMEN Ordering Facility: [facility] Address: [address] [place] [address] Performed By: #### 5 7021-8 #### [facility] CLIA [id number] [address] [place] [address] 44884 Anion gap [Moles/Vol] 9 mmol/L Normal 8-15 [facility] Comment on above: Order Comment: Speci men Type: BLOOD SPECIMEN Ordering Facility: [facility] Address: [address] [place] [address] Performed By: #### 5 7021-8 #### [facility] CLIA [id number] [address] [place] [address] AST [Catalytic activity/Vol] 17 U/L Normal 14-40 [facility] Comment on above: Order Comment: Speci men Type: BLOOD SPECIMEN Ordering Facility: [facility] Address: [address] [place], [place] [address] Performed By: #### 5 7021-8 #### [facility] CLIA [id number] [address] [place] [address] 76481 Bilirubin [Mass/Vol] 0.5 mg/dL Normal 0.2-1.3 [facility] Comment on above: Order Comment: Speci men Type: BLOOD SPECIMEN Ordering Facility: [facility] Address: [address] [place] [address] Performed By: #### 5 7021-8 #### [facility] CLIA [id number] [address] [place] [address] 38776 Calcium [Mass/Vol] 9.5 mg/dL Normal 8.5-10.2 [facility] Comment on above: Order Comment: Speci men Type: BLOOD SPECIMEN Ordering Facility: [facility] Address: [address] [place] [address] Performed By: #### 5 7021-8 #### [facility] CLIA [id number] [address] [place] [address] 77917 Chloride [Moles/Vol] 104 mmol/L Normal 98-107 [facility] Comment on above: Order Comment: Speci men Type: BLOOD SPECIMEN Ordering Facility: [facility] Address: [address] [place] [address] Performed By: #### 5 7021-8 #### [facility] CLIA [id number] [address] [place] [address] 28224 CO2 [Moles/Vol] 26 mmol/L Normal 22-30 [facility] Comment on above: Order Comment: Speci men Type: BLOOD SPECIMEN Ordering Facility: [facility] Address: [address] [place] [address] Performed By: #### 5 7021-8 #### [facility] CLIA [id number] [address] [place] [address] 71629 Creatinine [Mass/Vol] 0.88 mg/dL Normal 0.73-1.22 [facility] Comment on above: Order Comment: Speci men Type: BLOOD SPECIMEN Ordering Facility: [facility] Address: [address] [place] [address] Performed By: #### 5 7021-8 #### [facility] CLIA [id number] [address] [place] [address] 65831 Creatinine and Glomerular filtration rate.predicted panel (S/P/Bld) 88 mL/min/1.73m??? Normal >=60 [facility] Comment on above: Order Comment: Speci men Type: BLOOD SPECIMEN Ordering Facility: [facility] Address: [address] [place] [address] Result Comment: Renae mated Glomerular Filtration Rate [...] accurately reflect actual GFR. Performed By: #### 5 7021-8 #### [facility] CLIA [id number] [address] [place] [address] 57100 Glucose [Mass/Vol] 106 mg/dL High 74-99 [facility] Comment on above: Order Comment: Speci men Type: BLOOD SPECIMEN Ordering Facility: [facility] Address: [address] [place] [address] Result Comment: The [place] Diabetes Association (ADA) provides guidance for cutoff [...] Standards of Medical Care in Diabetes 2016, [place] [employer]. Diabetes Care. 2016.39(Suppl 1). Performed By: #### 5 7021-8 #### [facility] CLIA [id number] [address] [place] [address] 93740 Potassium [Moles/Vol] 5.6 mmol/L High 3.7-5.1 [facility] Comment on above: Order Comment: Speci men Type: BLOOD SPECIMEN Ordering Facility: [facility] Address: [address] [place] [address] Performed By: #### 5 7021-8 #### [facility] CLIA [id number] [address] [place] [address] 41955 Protein [Mass/Vol] 6.3 g/dL Normal 6.3-8.0 [facility] Comment on above: Order Comment: Speci men Type: BLOOD SPECIMEN Ordering Facility: [facility] Address: [address] [place] [address] Performed By: #### 5 7021-8 #### [facility] CLIA [id number] [address] [place] [address] 89709 Sodium [Moles/Vol] 139 mmol/L Normal 136-144 [facility] Comment on above: Order Comment: Speci men Type: BLOOD SPECIMEN Ordering Facility: [facility] Address: [address] [place] [address] Performed By: #### 5 7021-8 #### [facility] CLIA [id number] [address] [place] [address] 52446 Urea nitrogen [Mass/Vol] 19 mg/dL Normal 9-24 [facility] Comment on above: Order Comment: Speci men Type: BLOOD SPECIMEN Ordering Facility: [facility] Address: [address] [place] [address] Performed By: #### 5 7021-8 #### [facility] CLIA [id number] [address] [place] [address] PSA [facility] 05-03-2024 Prostate specific Ag [Mass/Vol] 0.18 ng/mL Normal <2.60 [facility] Comment on above: Order Comment: Speci men Type: BLOOD SPECIMEN Ordering Facility: [facility] Address: [address] [place] [address] [place] [address] Result Comment: Tota l PSA test methodology used is the Electrochemiluminescence Immunoassay by [employer]. Total PSA values by differing methodologies cannot be interchanged. Performed By: #### 5 7021-8 #### [facility] CLIA [id number] [address] [place] [address] Ambulatory Visit Summaryon 1 Ambulatory Visit Summary Ambulatory Visit Summary PABLO FELIX Jessica :1945 Visit Date:04/19/2024 Ambulatory Visit Instructions Your [...] mg Tab) ipratropium nasal (ipratropium Nasal 0.06% [place]) metformin (metformin 1000 mg oral tablet) metoprolol [...] Anthony SCRUGGS MD Where: [facility] [address] [place] [address] [place] [address]- You Need to Schedule the Following Appointments Follow Up with Anthony SCRUGGS MD, URL When: Where: [address] [place] [address] [place] [address]- Medications What How Much When Instructions Unchanged [...] concerns Unchanged ipratropium nasal (ipratropium Nasal 0.06% [place]) Contact prescribing physician if questions or concerns [...] st (more content not included)... Normal [facility] Urology Office/Clinic Noteon 04-19-2024 Urology Office/Clinic Note [...] 0.23 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 Roca 9 (5+4), pT2b, N0, Mo. Last Lupron administered 04/2022. Taking Xtandi 160mg qd and Xgeva q3mos. Last seen by [facility] oncology 02/02/24. Plan at that time was [...] Information KAEL JAMES, Anthony Lee, URL [address] [id number]- Additional Instructions: 6 mos w/ PSA and [...] ril (more content not included)... Normal [facility] Comment on above: Result Comment: Elec tronically Signed By: Anthony SCRUGGS MD\.br\Date and Time Signed: 04/19/24 08:47 EDT\.br\Electronically Co-Signed By: Olamide Ureña\.br\Date and Time Co-Signed: 04/19/24 08:45 EDT Office Visiton 03-29-2024 Follow-up visit [id number] Pablo Felix 1945 M Date Provider Department Center 03/29/2024 LORA BANUELOS CARD [facility] Family History Problem Relation Age of Onset Coronary artery disease Father Family Status - Relation Status Age at Father Level of Service:43231 [place] OFFICE/OUTPATIENT ESTABLISHED MOD MDM 30 MIN Normal [facility] CNOVSPon 02-02-2024 CNOVSP Visit (SP) Office (H EMASA) PABLO FELIX ([id number]) 1945 M Date Time Provider Department 02/02/24 11:30 AM LYNNE ALARCON During your visit today, we recorded the following information about you: Temperature Pulse Respiration Blood pressure 97.3 degrees 52/minute 16/minute 137/54 Weight Height 93.7 kg 1.676 m Lynne Alarcon APRN.CLERK OPERATOR 02/02/2024 11:37 AM Signed PATIENT NAME: Pablo Felix DATE: February 02, 2024 PRIMARY CARE PHYSICIAN: Dr. Jamar Fall OTHER PHYSICIANS: Dr. Anthony Scruggs, Dr. Khan, [facility] Cardiology This note was copied from prior [...] mg 24 hr tablet Take by mouth. 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 Left base margin positive for neoplasm. Seminal vesicles with no diagnostic abnormality. 2 resected lymph nodes negative for neoplasm. LABS: Hemoglobin (g/dL) Date Va (more content not included)... Normal [facility] Basophils Auto (Bld) [#/Vol] on 01-25-2024 Basophils (Bld) [#/Vol] 0.04 10*3/uL <0.11 [facility] Basophils/100 WBC Auto (Bld) on 01-25-2024 Basophils/100 WBC (Bld) 0.6 % [facility] Blood manual differential co mment interpretation narrativeon 01-25-2024 Manual differential comment [place] (Bld) [Interp] Auto [facility] CBC W Auto Differential pane l (Bld)on 01-25-2024 Basophils (Bld) [#/Vol] 0.04 10*3/uL Normal <0.11 [facility] Comment on above: Order Comment: Speci men Type: BLOOD SPECIMEN Ordering Facility: [facility] Address: [address] [place] [address] Performed By: #### 5 7021-8 #### [facility] CLIA [id number] [address] [place] [address] 51805 Basophils/100 WBC (Bld) 0.6 % Normal [facility] Comment on above: Order Comment: Speci men Type: BLOOD SPECIMEN Ordering Facility: [facility] Address: [address] [place] [address] Performed By: #### 5 7021-8 #### [facility] CLIA [id number] [address] [place] [address] 61970 Differential cell count method Nom (Bld) Auto Normal [facility] Comment on above: Order Comment: Speci men Type: BLOOD SPECIMEN Ordering Facility: [facility] Address: [address] [place] [address] Performed By: #### 5 7021-8 #### [facility] CLIA [id number] [address] [place] [address] 54962 Eosinophils (Bld) [#/Vol] 0.40 10*3/uL Normal <0.46 [facility] Comment on above: Order Comment: Speci men Type: BLOOD SPECIMEN Ordering Facility: [facility] Address: [address] [place] [address] Performed By: #### 5 7021-8 #### [facility] CLIA [id number] [address] [place] [address] 64250 Eosinophils/100 WBC (Bld) 5.9 % Normal [facility] Comment on above: Order Comment: Speci men Type: BLOOD SPECIMEN Ordering Facility: [facility] Address: [address] [place] [address] Performed By: #### 5 7021-8 #### [facility] CLIA [id number] [address] [place] [address] 08559 Erythrocyte distribution width (RBC) [Ratio] 12.7 % Normal 11.5-15.0 [facility] Comment on above: Order Comment: Speci men Type: BLOOD SPECIMEN Ordering Facility: [facility] Address: [address] [place] [address] Performed By: #### 5 7021-8 #### [facility] CLIA [id number] [address] [place] [address] 43423 Hematocrit (Bld) [Volume fraction] 34.6 % Low 39.0-51.0 [facility] Comment on above: Order Comment: Speci men Type: BLOOD SPECIMEN Ordering Facility: [facility] Address: [address] [place] [address] Performed By: #### 5 7021-8 #### [facility] CLIA [id number] [address] [place] [address] 18865 Hemoglobin (Bld) [Mass/Vol] 11.8 g/dL Low 13.0-17.0 [facility] Comment on above: Order Comment: Speci men Type: BLOOD SPECIMEN Ordering Facility: [facility] Address: [address] [place] [address] Performed By: #### 5 7021-8 #### [facility] CLIA [id number] [address] [place] [address] 48447 Immature granulocytes (Bld) [#/Vol] 0.07 10*3/uL Normal <0.10 [facility] Comment on above: Order Comment: Speci men Type: BLOOD SPECIMEN Ordering Facility: [facility] Address: [address] [place] [address] Performed By: #### 5 7021-8 #### [facility] CLIA [id number] [address] [place] [address] 55551 Immature granulocytes/100 WBC (Bld) 1.0 % Normal [facility] Comment on above: Order Comment: Speci men Type: BLOOD SPECIMEN Ordering Facility: [facility] Address: [address] [place] [address] Performed By: #### 5 7021-8 #### [facility] CLIA [id number] [address] [place] [address] 39510 Lymphocytes (Bld) [#/Vol] 2.16 10*3/uL Normal 1.00-4.00 [facility] Comment on above: Order Comment: Speci men Type: BLOOD SPECIMEN Ordering Facility: [facility] Address: [address] [place] [address] Performed By: #### 5 7021-8 #### [facility] CLIA [id number] [address] [place] [address] 51012 Lymphocytes/100 WBC (Bld) 31.8 % Normal [facility] Comment on above: Order Comment: Speci men Type: BLOOD SPECIMEN Ordering Facility: [facility] Address: [address] [place] [address]05 Performed By: #### 5 7021-8 #### [facility] CLIA [id number] [address] [place] [address] 45219 MCH (RBC) [Entitic mass] 32.2 pg Normal 26.0-34.0 [facility] Comment on above: Order Comment: Speci men Type: BLOOD SPECIMEN Ordering Facility: [facility] Address: [address] [place] [address] 399[address] Performed By: #### 5 7021-8 #### [facility] CLIA [id number] [address] [place] [address] 17578 MCHC (RBC) [Mass/Vol] 34.1 g/dL Normal 30.5-36.0 [facility] Comment on above: Order Comment: Speci men Type: BLOOD SPECIMEN Ordering Facility: [facility] Address: [address] [place] [address] 70084 Performed By: #### 5 7021-8 #### [facility] CLIA [id number] [address] [place] [address] 47049 MCV (RBC) [Entitic vol] 94.3 fL Normal 80.0-100.0 [facility] Comment on above: Order Comment: Speci men Type: BLOOD SPECIMEN Ordering Facility: [facility] Address: [address] [place] [address] Performed By: #### 5 7021-8 #### [facility] CLIA [id number] [address] [place] [address] 69856 Monocytes (Bld) [#/Vol] 0.60 10*3/uL Normal <0.87 [facility] Comment on above: Order Comment: Speci men Type: BLOOD SPECIMEN Ordering Facility: [facility] Address: [address] [place] [address] Performed By: #### 5 7021-8 #### [facility] CLIA [id number] [address] [place] [address] 87598 Monocytes/100 WBC (Bld) 8.8 % Normal [facility] Comment on above: Order Comment: Speci men Type: BLOOD SPECIMEN Ordering Facility: [facility] Address: [address] [place] [address] 52284 Performed By: #### 5 7021-8 #### [facility] CLIA [id number] [address] [place] [address] 88651 Neutrophils (Bld) [#/Vol] 3.53 10*3/uL Normal 1.45-7.50 [facility] Comment on above: Order Comment: Speci men Type: BLOOD SPECIMEN Ordering Facility: [facility] Address: [address] [place] [address] 19759 Performed By: #### 5 7021-8 #### [facility] CLIA [id number] [address] [place] [address] 59506 Neutrophils/100 WBC (Bld) 51.9 % Normal [facility] Comment on above: Order Comment: Speci men Type: BLOOD SPECIMEN Ordering Facility: [facility] Address: [address] [place] [address] 58569 Performed By: #### 5 7021-8 #### [facility] CLIA [id number] [address] [place] [address] Nucleated RBC (Bld) [#/Vol] 10*3/uL Normal <0.01 [facility] Comment on above: Order Comment: Speci men Type: BLOOD SPECIMEN Ordering Facility: [facility] Address: [address] [place] [address] Performed By: #### 5 7021-8 #### [facility] CLIA [id number] [address] [place] [address] Nucleated RBC/100 WBC (Bld) [Ratio] 0.0 /100 WBC Normal [facility] Comment on above: Order Comment: Speci men Type: BLOOD SPECIMEN Ordering Facility: [facility] Address: [address] [place] [address] Performed By: #### 5 7021-8 #### [facility] CLIA [id number] [address] [place] [address] 39835 Platelet mean volume (Bld) [Entitic vol] 10.3 fL Normal 9.0-12.7 [facility] Comment on above: Order Comment: Speci men Type: BLOOD SPECIMEN Ordering Facility: [facility] Address: [address] [place] [address] Performed By: #### 5 7021-8 #### [facility] CLIA [id number] [address] [place] [address] 08897 Platelets (Bld) [#/Vol] 184 10*3/uL Normal 150-400 [facility] Comment on above: Order Comment: Speci men Type: BLOOD SPECIMEN Ordering Facility: [facility] Address: [address] [place] [address] 14230 Performed By: #### 5 7021-8 #### [facility] CLIA [id number] [address] [place] [address] RBC (Bld) [#/Vol] 3.67 10*6/uL Low 4.20-6.00 [facility] Comment on above: Order Comment: Speci men Type: BLOOD SPECIMEN Ordering Facility: [facility] Address: [address] [place] [address] 51377 Performed By: #### 5 7021-8 #### [facility] CLIA [id number] [address] [place] [address] 54482 WBC (Bld) [#/Vol] 6.80 10*3/uL Normal 3.70-11.00 [facility] Comment on above: Order Comment: Speci men Type: BLOOD SPECIMEN Ordering Facility: [facility] Address: [address] [place], [place] [address] Performed By: #### 5 7021-8 #### [facility] CLIA [id number] [address] [place] [address] 04589 Comprehensive metabolic 2000 panelon 01-25-2024 Albumin [Mass/Vol] 4.0 g/dL Normal 3.9-4.9 [facility] Comment on above: Order Comment: Speci men Type: BLOOD SPECIMEN Ordering Facility: [facility] Address: [address] [place] [address] 09506 Performed By: #### 5 7021-8 #### [facility] CLIA [id number] [address] [place] [address] 70678 ALP [Catalytic activity/Vol] 74 U/L Normal 38-113 [facility] Comment on above: Order Comment: Speci men Type: BLOOD SPECIMEN Ordering Facility: [facility] Address: [address] [place] [address] 27009 Performed By: #### 5 7021-8 #### [facility] CLIA [id number] [address] [place] [address] 39930 ALT [Catalytic activity/Vol] 18 U/L Normal 10-54 [facility] Comment on above: Order Comment: Speci men Type: BLOOD SPECIMEN Ordering Facility: [facility] Address: [address] [place] [address] 25138 Performed By: #### 5 7021-8 #### [facility] CLIA [id number] [address] [place] [address] [place] [address] Anion gap [Moles/Vol] 9 mmol/L Normal 8-15 [facility] Comment on above: Order Comment: Speci men Type: BLOOD SPECIMEN Ordering Facility: [facility] Address: [address] [place] [address] 19512 Performed By: #### 5 7021-8 #### [facility] CLIA [id number] [address] [place] [address] 11682 AST [Catalytic activity/Vol] 19 U/L Normal 14-40 [facility] Comment on above: Order Comment: Speci men Type: BLOOD SPECIMEN Ordering Facility: [facility] Address: [address] [place] [address] 66316 Performed By: #### 5 7021-8 #### [facility] CLIA [id number] [address] [place] [address] 55665 Bilirubin [Mass/Vol] 0.7 mg/dL Normal 0.2-1.3 [facility] Comment on above: Order Comment: Speci men Type: BLOOD SPECIMEN Ordering Facility: [facility] Address: [address] [place] [address] 35031 Performed By: #### 5 7021-8 #### [facility] CLIA [id number] [address] [place] [address] 95643 Calcium [Mass/Vol] 9.9 mg/dL Normal 8.5-10.2 [facility] Comment on above: Order Comment: Speci men Type: BLOOD SPECIMEN Ordering Facility: [facility] Address: [address] [place] [address] 41556 Performed By: #### 5 7021-8 #### [facility] CLIA [id number] [address] [place] [address] 65842 Chloride [Moles/Vol] 103 mmol/L Normal 98-107 [facility] Comment on above: Order Comment: Speci men Type: BLOOD SPECIMEN Ordering Facility: [facility] Address: [address] [place] [address] 81376 Performed By: #### 5 7021-8 #### [facility] CLIA [id number] [address] [place] [address] CO2 [Moles/Vol] 25 mmol/L Normal 22-30 [facility] Comment on above: Order Comment: Speci men Type: BLOOD SPECIMEN Ordering Facility: [facility] Address: [address] [place] [address] Performed By: #### 5 7021-8 #### [facility] CLIA [id number] [address] [place] [address] 70141 Creatinine [Mass/Vol] 0.79 mg/dL Normal 0.73-1.22 [facility] Comment on above: Order Comment: Speci men Type: BLOOD SPECIMEN Ordering Facility: [facility] Address: [address] [place] [address] Performed By: #### 5 7021-8 #### [facility] CLIA [id number] [address] [place] [address] 40144 Creatinine and Glomerular filtration rate.predicted panel (S/P/Bld) 91 mL/min/1.73m??? Normal >=60 [facility] Comment on above: Order Comment: Speci men Type: BLOOD SPECIMEN Ordering Facility: [facility] Address: [address] [place] [address] Result Comment: Renae mated Glomerular Filtration Rate [...] accurately reflect actual GFR. Performed By: #### 5 7021-8 #### [facility] CLIA [id number] [address] [place] [address] 04263 Glucose [Mass/Vol] 112 mg/dL High 74-99 [facility] Comment on above: Order Comment: Speci men Type: BLOOD SPECIMEN Ordering Facility: [facility] Address: [address] [place] [address] Result Comment: The [place] Diabetes Association (ADA) provides guidance for cutoff [...] Standards of Medical Care in Diabetes 2016, [place] Diabetes Association. Diabetes Care. 2016.39(Suppl 1). Performed By: #### 5 7021-8 #### [facility] CLIA [id number] [address] [place] [address] 57721 Potassium [Moles/Vol] 5.2 mmol/L High 3.7-5.1 [facility] Comment on above: Order Comment: Speci men Type: BLOOD SPECIMEN Ordering Facility: [facility] Address: [address] [place] [address] Performed By: #### 5 7021-8 #### [facility] CLIA [id number] [address] [place] [address] 57834 Protein [Mass/Vol] 6.6 g/dL Normal 6.3-8.0 [facility] Comment on above: Order Comment: Speci men Type: BLOOD SPECIMEN Ordering Facility: [facility] Address: [address] [place] [address] Performed By: #### 5 7021-8 #### [facility] CLIA [id number] [address] [place] [address] 48588 Sodium [Moles/Vol] 137 mmol/L Normal 136-144 [facility] Comment on above: Order Comment: Speci men Type: BLOOD SPECIMEN Ordering Facility: [facility] Address: [address] [place] [address] Performed By: #### 5 7021-8 #### [facility] CLIA [id number] [address] [place] [address] 91221 Urea nitrogen [Mass/Vol] 15 mg/dL Normal 9-24 [facility] Comment on above: Order Comment: Speci men Type: BLOOD SPECIMEN Ordering Facility: [facility] Address: [address] [place] [address] Performed By: #### 5 7021-8 #### [facility] CLIA [id number] [address] [place] [address] Eosinophils/100 WBC Auto (Bl d)on 01-25-2024 Eosinophils/100 WBC (Bld) 5.9 % [facility] Erythrocyte distribution wid th Auto (RBC) [Ratio]on 01-25-2024 Erythrocyte distribution width (RBC) [Ratio] 12.7 % 11.5-15.0 [facility] Hematocrit Auto (Bld) [Volum e fraction]on 01-25-2024 Hematocrit (Bld) [Volume fraction] 34.6 % Low 39.0-51.0 [facility] Hemoglobin [Mass/volume] in Bloodon 01-25-2024 Hemoglobin (Bld) [Mass/Vol] 11.8 g/dL Low 13.0-17.0 [facility] Laboratory - Chemistry and C hemistry - challengeon 01-25-2024 Albumin [Mass/Vol] 4.0 g/dL 3.9-4.9 [facility] ALP [Catalytic activity/Vol] 74 U/L 38-113 [facility] ALT [Catalytic activity/Vol] 18 U/L 10-54 [facility] AST [Catalytic activity/Vol] 19 U/L 14-40 [facility] Bilirubin [Mass/Vol] 0.7 mg/dL 0.2-1.3 [facility] Calcium [Mass/Vol] 9.9 mg/dL 8.5-10.2 [facility] Chloride [Moles/Vol] 103 mmol/L 98-107 [facility] CO2 [Moles/Vol] 25 mmol/L 22-30 [facility] Creatinine [Mass/Vol] 0.79 mg/dL 0.73-1.22 [facility] Glucose [Mass/Vol] 112 mg/dL High 74-99 [facility] Comment on above: The [place] Diabete s Association (ADA) provides guidance for [...] Standards of Medical Care in Diabetes 2016, [place] Diabetes [employer]. Diabetes Care. 2016.39(Suppl 1). Potassium [Moles/Vol] 5.2 mmol/L High 3.7-5.1 [facility] Sodium [Moles/Vol] 137 mmol/L 136-144 [facility] Urea nitrogen [Mass/Vol] 15 mg/dL 04-09 [facility] Laboratory - Hematology and Cell countson 01-25-2024 Eosinophils (Bld) [#/Vol] 0.40 10*3/uL <0.46 [facility] Immature granulocytes (Bld) [#/Vol] 0.07 10*3/uL <0.10 [facility] Immature granulocytes/100 WBC (Bld) 1.0 % [facility] Leukocytes [#/volume] correc jomar for nucleated erythrocytes in Blood by Automated counon 01-25-2024 WBC corrected for nucl RBC Auto (Bld) [#/Vol] 6.80 k/uL 3.70-11.00 [facility] Lymphocytes Auto (Bld) [#/Vo l]on 01-25-2024 Lymphocytes (Bld) [#/Vol] 2.16 10*3/uL 1.00-4.00 [facility] Lymphocytes/100 WBC Auto (Bl d)on 01-25-2024 Lymphocytes/100 WBC (Bld) 31.8 % [facility] MCH Auto (RBC) [Entitic mass ]on 01-25-2024 MCH (RBC) [Entitic mass] 32.2 pg 26.0-34.0 [facility] MCHC Auto (RBC) [Mass/Vol]on 01-25-2024 MCHC (RBC) [Mass/Vol] 34.1 g/dL 30.5-36.0 [facility] MCV Auto (RBC) [Entitic vol] on 01-25-2024 MCV (RBC) [Entitic vol] 94.3 fL 80.0-100.0 [facility] Monocytes Auto (Bld) [#/Vol] on 01-25-2024 Monocytes (Bld) [#/Vol] 0.60 10*3/uL <0.87 [facility] Monocytes/100 WBC Auto (Bld) on 01-25-2024 Monocytes/100 WBC (Bld) 8.8 % [facility] Neutrophils Auto (Bld) [#/Vo l]on 01-25-2024 Neutrophils (Bld) [#/Vol] 3.53 10*3/uL 1.45-7.50 [facility] Neutrophils/100 WBC Auto (Bl d)on 01-25-2024 Neutrophils/100 WBC (Bld) 51.9 % [facility] No Panel Informationon 01-24 Estimated GFR (CKD-EPI) 91 mL/min/1.73m??? >=60 [facility] Comment on above: Estimated Glomerular Filtration [...] GFR. Prostate Specific Antigen 0.15 ng/mL <2.60 [facility] Comment on above: Total PSA test metho dology used is the Electrochemiluminescence Immunoassay by [employer]. Total PSA values by differing methodologies cannot be interchanged. Nucleated RBC Auto (Bld) [#/ Vol]on 01-25-2024 Nucleated RBC (Bld) [#/Vol] 10*3/uL <0.01 [facility] Nucleated erythrocytes [Pres ence] in Blood by Automated counton 01-25-2024 Nucleated RBC Auto Ql (Bld) 0.0 /100{WBC} [facility] PSA SerPl-mCncon 01-25-2024 Prostate specific Ag [Mass/Vol] 0.15 ng/mL Normal <2.60 [facility] Comment on above: Order Comment: Speci men Type: BLOOD SPECIMEN Ordering Facility: [facility] Address: [place] [address] Result Comment: Tota l PSA test methodology used is the Electrochemiluminescence Immunoassay by [employer]. Total PSA values by differing methodologies cannot be interchanged. Performed By: #### 5 7021-8 #### [facility] CLIA [id number] [address] [place] [address] 74886 Platelet mean volume Auto (B ld) [Entitic vol]on 01-25-2024 Platelet mean volume (Bld) [Entitic vol] 10.3 fL 9.0-12.7 [facility] Platelets Auto (Bld) [#/Vol] on 01-25-2024 Platelets (Bld) [#/Vol] 184 10*3/uL 150-400 [facility] Protein [Mass/volume] in Ser um or Plasmaon 01-25-2024 Protein [Mass/Vol] 6.6 g/dL 6.3-8.0 [facility] RBC Auto (Bld) [#/Vol]on RBC (Bld) [#/Vol] 3.67 10*6/uL Low 4.20-6.00 [facility] Serum or plasma anion gap de terminationon 01-25-2024 Anion gap [Moles/Vol] 9 mmol/L 8-15 [facility] Consultation Noteon 11-07-19 24 Consultation Note [id number] [place] [facility] CNOVSPon 11-02-2023 CNOVSP Visit (SP) Office (Kiara MUELLER) PABLO FELIX ([id number]) 1945 M Date Time Provider Department 11/02/23 9:30 AM CHRISTO HOWARD During your visit today, we recorded the following information about you: Temperature Pulse Respiration Blood pressure 97.8 degrees 56/minute 16/minute 123/44 Weight Height 92.9 kg 1.676 m Christo Howard APRN.CLERK OPERATOR 11/03/2023 11:11 AM Signed PATIENT NAME: Pablo Felix DATE: 11/02/2023 PRIMARY CARE PHYSICIAN: Dr. Jamar Fall OTHER PHYSICIANS: Dr. Anthony Scruggs, Dr. Khan, [facility] Cardiology Portions of this encounter note [...] mg 24 hr tablet Take by mouth. 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 Left base margin positive for neoplasm. Seminal vesicles with no diagnostic abnormality. 2 resected lymph nodes negative for neoplasm. LABS: Hem (more content not included)... Normal [facility] Basophils Auto (Bld) [#/Vol] on 10-30-2023 Basophils (Bld) [#/Vol] 0.04 10*3/uL <0.11 [facility] Basophils/100 WBC Auto (Bld) on 10-30-2023 Basophils/100 WBC (Bld) 0.5 % [facility] Blood manual differential co mment interpretation narrativeon 10-30-2023 Manual differential comment [place] (Bld) [Interp] Auto [facility] CBC W Auto Differential pane l (Bld)on 10-30-2023 Basophils (Bld) [#/Vol] 0.04 10*3/uL Normal <0.11 [facility] Comment on above: Order Comment: Speci men Type: BLOOD SPECIMEN Ordering Facility: [facility] Address: [address] [place] [address] Performed By: #### 5 7021-8 #### [facility] CLIA [id number] [address] [place] [address] 57798 Basophils/100 WBC (Bld) 0.5 % Normal [facility] Comment on above: Order Comment: Speci men Type: BLOOD SPECIMEN Ordering Facility: [facility] Address: [address] [place] [address] Performed By: #### 5 7021-8 #### [facility] CLIA [id number] [address] [place] [address] 73762 Differential cell count method Nom (Bld) Auto Normal [facility] Comment on above: Order Comment: Speci men Type: BLOOD SPECIMEN Ordering Facility: [facility] Address: [address] [place] [address] Performed By: #### 5 7021-8 #### [facility] CLIA [id number] [address] [place] [address] Eosinophils (Bld) [#/Vol] 0.35 10*3/uL Normal <0.46 [facility] Comment on above: Order Comment: Speci men Type: BLOOD SPECIMEN Ordering Facility: [facility] Address: [address] [place] [address] Performed By: #### 5 7021-8 #### [facility] CLIA [id number] [address] [place] [address] 73094 Eosinophils/100 WBC (Bld) 4.3 % Normal [facility] Comment on above: Order Comment: Speci men Type: BLOOD SPECIMEN Ordering Facility: [facility] Address: [address] [place] [address] Performed By: #### 5 7021-8 #### [facility] CLIA [id number] [address] [place] [address] 17946 Erythrocyte distribution width (RBC) [Ratio] 12.8 % Normal 11.5-15.0 [facility] Comment on above: Order Comment: Speci men Type: BLOOD SPECIMEN Ordering Facility: [facility] Address: [address] [place] [address] Performed By: #### 5 7021-8 #### [facility] CLIA [id number] [address] [place] [address] 18431 Hematocrit (Bld) [Volume fraction] 35.8 % Low 39.0-51.0 [facility] Comment on above: Order Comment: Speci men Type: BLOOD SPECIMEN Ordering Facility: [facility] Address: [address] [place] [address] Performed By: #### 5 7021-8 #### [facility] CLIA [id number] [address] [place] [address] 03793 Hemoglobin (Bld) [Mass/Vol] 12.2 g/dL Low 13.0-17.0 [facility] Comment on above: Order Comment: Speci men Type: BLOOD SPECIMEN Ordering Facility: [facility] Address: [address] [place] [address] Performed By: #### 5 7021-8 #### [facility] CLIA [id number] [address] [place] [address] 38466 Immature granulocytes (Bld) [#/Vol] 0.04 10*3/uL Normal <0.10 [facility] Comment on above: Order Comment: Speci men Type: BLOOD SPECIMEN Ordering Facility: [facility] Address: [address] [place] [address] Performed By: #### 5 7021-8 #### [facility] CLIA [id number] [address] [place] [address] 53813 Immature granulocytes/100 WBC (Bld) 0.5 % Normal [facility] Comment on above: Order Comment: Speci men Type: BLOOD SPECIMEN Ordering Facility: [facility] Address: [address] [place] [address] Performed By: #### 5 7021-8 #### [facility] CLIA [id number] [address] [place] [address] 68388 Lymphocytes (Bld) [#/Vol] 1.36 10*3/uL Normal 1.00-4.00 [facility] Comment on above: Order Comment: Speci men Type: BLOOD SPECIMEN Ordering Facility: [facility] Address: [address] [place] [address] Performed By: #### 5 7021-8 #### [facility] CLIA [id number] [address] [place] [address] 19812 Lymphocytes/100 WBC (Bld) 16.6 % Normal [facility] Comment on above: Order Comment: Speci men Type: BLOOD SPECIMEN Ordering Facility: [facility] Address: [address] [place] [address] Performed By: #### 5 7021-8 #### [facility] CLIA [id number] [address] [place] [address] 95330 MCH (RBC) [Entitic mass] 31.3 pg Normal 26.0-34.0 [facility] Comment on above: Order Comment: Speci men Type: BLOOD SPECIMEN Ordering Facility: [facility] Address: [address] [place] [address] Performed By: #### 5 7021-8 #### [facility] CLIA [id number] [address] [place] [address] 01953 MCHC (RBC) [Mass/Vol] 34.1 g/dL Normal 30.5-36.0 [facility] Comment on above: Order Comment: Speci men Type: BLOOD SPECIMEN Ordering Facility: [facility] Address: [address] [place] [address] Performed By: #### 5 7021-8 #### [facility] CLIA [id number] [address] [place] [address] 58989 MCV (RBC) [Entitic vol] 91.8 fL Normal 80.0-100.0 [facility] Comment on above: Order Comment: Speci men Type: BLOOD SPECIMEN Ordering Facility: [facility] Address: [address] [place] [address] Performed By: #### 5 7021-8 #### [facility] CLIA [id number] [address] [place] [address] 78878 Monocytes (Bld) [#/Vol] 0.62 10*3/uL Normal <0.87 [facility] Comment on above: Order Comment: Speci men Type: BLOOD SPECIMEN Ordering Facility: [facility] Address: [address] [place] [address] 97493 Performed By: #### 5 7021-8 #### [facility] CLIA [id number] [address] [place] [address] 91560 Monocytes/100 WBC (Bld) 7.6 % Normal [facility] Comment on above: Order Comment: Speci men Type: BLOOD SPECIMEN Ordering Facility: [facility] Address: [address] [place] [address]406 Performed By: #### 5 7021-8 #### [facility] CLIA [id number] [address] [place] [address] 27607 Neutrophils (Bld) [#/Vol] 5.78 10*3/uL Normal 1.45-7.50 [facility] Comment on above: Order Comment: Speci men Type: BLOOD SPECIMEN Ordering Facility: [facility] Address: [address] [place] [address] Performed By: #### 5 7021-8 #### [facility] CLIA [id number] [address] [place] [address] 91607 Neutrophils/100 WBC (Bld) 70.5 % Normal [facility] Comment on above: Order Comment: Speci men Type: BLOOD SPECIMEN Ordering Facility: [facility] Address: [address] [place] [address] Performed By: #### 5 7021-8 #### [facility] CLIA [id number] [address] [place] [address] 11880 Nucleated RBC (Bld) [#/Vol] 10*3/uL Normal <0.01 [facility] Comment on above: Order Comment: Speci men Type: BLOOD SPECIMEN Ordering Facility: [facility] Address: [address] [place] [address] 8[address]30 Performed By: #### 5 7021-8 #### [facility] CLIA [id number] [address] [place] [address] 91453 Nucleated RBC/100 WBC (Bld) [Ratio] 0.0 /100 WBC Normal [facility] Comment on above: Order Comment: Speci men Type: BLOOD SPECIMEN Ordering Facility: [facility] Address: [address] [place] [address] Performed By: #### 5 7021-8 #### [facility] CLIA [id number] [address] [place] [address] 47571 Platelet mean volume (Bld) [Entitic vol] 9.5 fL Normal 9.0-12.7 [facility] Comment on above: Order Comment: Speci men Type: BLOOD SPECIMEN Ordering Facility: [facility] Address: [address] [place] [address] 0[address] Performed By: #### 5 7021-8 #### [facility] CLIA [id number] [address] [place] [address] Platelets (Bld) [#/Vol] 192 10*3/uL Normal 150-400 [facility] Comment on above: Order Comment: Speci men Type: BLOOD SPECIMEN Ordering Facility: [facility] Address: [address] [place] [address] Performed By: #### 5 7021-8 #### [facility] CLIA [id number] [address] [place] [address] 29746 RBC (Bld) [#/Vol] 3.90 10*6/uL Low 4.20-6.00 [facility] Comment on above: Order Comment: Speci men Type: BLOOD SPECIMEN Ordering Facility: [facility] Address: [address] [place] [address] Performed By: #### 5 7021-8 #### [facility] CLIA [id number] [address] [place] [address] 51707 WBC (Bld) [#/Vol] 8.19 10*3/uL Normal 3.70-11.00 [facility] Comment on above: Order Comment: Speci men Type: BLOOD SPECIMEN Ordering Facility: [facility] Address: [address] [place] [address] Performed By: #### 5 7021-8 #### [facility] CLIA [id number] [address] [place] [address] 01797 Comprehensive metabolic 2000 panelon 10-30-2023 Albumin [Mass/Vol] 4.1 g/dL Normal 3.9-4.9 [facility] Comment on above: Order Comment: Speci men Type: BLOOD SPECIMEN Ordering Facility: [facility] Address: [address] [place] [address] Performed By: #### 5 7021-8 #### [facility] CLIA [id number] [address] [place] [address] 37560 ALP [Catalytic activity/Vol] 75 U/L Normal 38-113 [facility] Comment on above: Order Comment: Speci men Type: BLOOD SPECIMEN Ordering Facility: [facility] Address: [address] [place] [address] Performed By: #### 5 7021-8 #### [facility] CLIA [id number] [address] [place] [address] ALT [Catalytic activity/Vol] 16 U/L Normal 10-54 [facility] Comment on above: Order Comment: Speci men Type: BLOOD SPECIMEN Ordering Facility: [facility] Address: [address] [place] [id number] Performed By: #### 5 7021-8 #### [facility] CLIA [id number] [address] [place] [address] 63876 Anion gap [Moles/Vol] 13 mmol/L Normal 9-18 [facility] Comment on above: Order Comment: Speci men Type: BLOOD SPECIMEN Ordering Facility: [facility] Address: [address] [place] [address] 48571 Performed By: #### 5 7021-8 #### [facility] CLIA [id number] [address] [place] [address] 97397 AST [Catalytic activity/Vol] 16 U/L Normal 14-40 [facility] Comment on above: Order Comment: Speci men Type: BLOOD SPECIMEN Ordering Facility: [facility] Address: [facility] [place] [address] Performed By: #### 5 7021-8 #### [facility] CLIA [id number] [address] [place] [address] 73921 Bilirubin [Mass/Vol] 0.7 mg/dL Normal 0.2-1.3 [facility] Comment on above: Order Comment: Speci men Type: BLOOD SPECIMEN Ordering Facility: [facility] Address: [address] [place] [address]42 Performed By: #### 5 7021-8 #### [facility] CLIA [id number] [address] [place] [address] 87324 Calcium [Mass/Vol] 9.8 mg/dL Normal 8.5-10.2 [facility] Comment on above: Order Comment: Speci men Type: BLOOD SPECIMEN Ordering Facility: [facility] Address: [address] [place] [address] 40075 Performed By: #### 5 7021-8 #### [facility] CLIA [id number] [address] [place] [address] 88793 Chloride [Moles/Vol] 103 mmol/L Normal 97-105 [facility] Comment on above: Order Comment: Speci men Type: BLOOD SPECIMEN Ordering Facility: [facility] Address: [address] [place] [address] Performed By: #### 5 7021-8 #### [facility] CLIA [id number] [address] [place] [address] 34998 CO2 [Moles/Vol] 24 mmol/L Normal 22-30 [facility] Comment on above: Order Comment: Speci men Type: BLOOD SPECIMEN Ordering Facility: [facility] Address: [address] [place] [address] 28561 Performed By: #### 5 7021-8 #### [facility] CLIA [id number] [address] [place] [address] 95197 Creatinine [Mass/Vol] 0.88 mg/dL Normal 0.73-1.22 [facility] Comment on above: Order Comment: Speci men Type: BLOOD SPECIMEN Ordering Facility: [facility] Address: [address] [place] [address] 44059 Performed By: #### 5 7021-8 #### [facility] CLIA [id number] [address] [place] [address] 05671 Creatinine and Glomerular filtration rate.predicted panel (S/P/Bld) 89 mL/min/1.73m??? Normal >=60 [facility] Comment on above: Order Comment: Speci men Type: BLOOD SPECIMEN Ordering Facility: [facility] Address: [address] [place], [place] [address] Result Comment: Renae mated Glomerular Filtration Rate [...] accurately reflect actual GFR. Performed By: #### 5 7021-8 #### [facility] CLIA [id number] [address] [place] [address] 59282 Glucose [Mass/Vol] 128 mg/dL High 74-99 [facility] Comment on above: Order Comment: Nicanor camilo Type: BLOOD SPECIMEN Ordering Facility: [facility] Address: [address] [place] [address] 24685 Result Comment: The [place] Diabetes Association (ADA) provides guidance for cutoff [...] Standards of Medical Care in Diabetes 2016, [place] [employer] Association. Diabetes Care. 2016.39(Suppl 1). Performed By: #### 5 7021-8 #### [facility] CLIA [id number] [address] [place] [address] 21820 Potassium [Moles/Vol] 4.8 mmol/L Normal 3.7-5.1 [facility] Comment on above: Order Comment: Nicanor camilo Type: BLOOD SPECIMEN Ordering Facility: [facility] Address: [address] [place] [address] Performed By: #### 5 7021-8 #### [facility] CLIA [id number] [address] [place] [address] Protein [Mass/Vol] 6.5 g/dL Normal 6.3-8.0 [facility] Comment on above: Order Comment: Speci men Type: BLOOD SPECIMEN Ordering Facility: [facility] Address: [address] [place] [address] Performed By: #### 5 7021-8 #### [facility] CLIA [id number] [address] [place] [address] Sodium [Moles/Vol] 140 mmol/L Normal 136-144 [facility] Comment on above: Order Comment: Speci men Type: BLOOD SPECIMEN Ordering Facility: [facility] Address: [facility] [place] [address] Performed By: #### 5 7021-8 #### [facility] CLIA [id number] [address] [place] [address] 06953 Urea nitrogen [Mass/Vol] 18 mg/dL Normal 9-24 [facility] Comment on above: Order Comment: Speci men Type: BLOOD SPECIMEN Ordering Facility: [facility] Address: [address] [place] [address] Performed By: #### 5 7021-8 #### [facility] CLIA [id number] [address] [place] [address] 37785 Eosinophils/100 WBC Auto (Bl d)on 10-30-2023 Eosinophils/100 WBC (Bld) 4.3 % [facility] Erythrocyte distribution wid th Auto (RBC) [Ratio]on 10-30-2023 Erythrocyte distribution width (RBC) [Ratio] 12.8 % 11.5-15.0 [facility] Hematocrit Auto (Bld) [Volum e fraction]on 10-30-2023 Hematocrit (Bld) [Volume fraction] 35.8 % 39.0-51.0 [facility] Hemoglobin [Mass/volume] in Bloodon 10-30-2023 Hemoglobin (Bld) [Mass/Vol] 12.2 g/dL 13.0-17.0 [facility] Laboratory - Chemistry and C hemistry - challengeon 10-30-2023 Albumin [Mass/Vol] 4.1 g/dL 3.9-4.9 [facility] ALP [Catalytic activity/Vol] 75 U/L 38-113 [facility] ALT [Catalytic activity/Vol] 16 U/L 10-54 [facility] AST [Catalytic activity/Vol] 16 U/L 14-40 [facility] Bilirubin [Mass/Vol] 0.7 mg/dL 0.2-1.3 [facility] Calcium [Mass/Vol] 9.8 mg/dL 8.5-10.2 [facility] Chloride [Moles/Vol] 103 mmol/L 97-105 [facility] CO2 [Moles/Vol] 24 mmol/L 22-30 [facility] Creatinine [Mass/Vol] 0.88 mg/dL 0.73-1.22 [facility] Glucose [Mass/Vol] 128 mg/dL 74-99 [facility] Comment on above: The [place] Diabete s Association (ADA) provides guidance for [...] Standards of Medical Care in Diabetes 2016, [place] Diabetes Association. Diabetes Care. 2016.39(Suppl 1). Potassium [Moles/Vol] 4.8 mmol/L 3.7-5.1 [facility] Sodium [Moles/Vol] 140 mmol/L 136-144 [facility] Urea nitrogen [Mass/Vol] 18 mg/dL 9-24 [facility] Laboratory - Hematology and Cell countson 10-30-2023 Eosinophils (Bld) [#/Vol] 0.35 10*3/uL <0.46 [facility] Immature granulocytes (Bld) [#/Vol] 0.04 10*3/uL <0.10 [facility] Immature granulocytes/100 WBC (Bld) 0.5 % [facility] Leukocytes [#/volume] correc jomar for nucleated erythrocytes in Blood by Automated counon 10-30-2023 WBC corrected for nucl RBC Auto (Bld) [#/Vol] 8.19 k/uL 3.70-11.00 [facility] Lymphocytes Auto (Bld) [#/Vo l]on 10-30-2023 Lymphocytes (Bld) [#/Vol] 1.36 10*3/uL 1.00-4.00 [facility] Lymphocytes/100 WBC Auto (Bl d)on 10-30-2023 Lymphocytes/100 WBC (Bld) 16.6 % [facility] MCH Auto (RBC) [Entitic mass ]on 10-30-2023 MCH (RBC) [Entitic mass] 31.3 pg 26.0-34.0 [facility] MCHC Auto (RBC) [Mass/Vol]on 10-30-2023 MCHC (RBC) [Mass/Vol] 34.1 g/dL 30.5-36.0 [facility] MCV Auto (RBC) [Entitic vol] on 10-30-2023 MCV (RBC) [Entitic vol] 91.8 fL 80.0-100.0 [facility] Monocytes Auto (Bld) [#/Vol] on 10-30-2023 Monocytes (Bld) [#/Vol] 0.62 10*3/uL <0.87 [facility] Monocytes/100 WBC Auto (Bld) on 10-30-2023 Monocytes/100 WBC (Bld) 7.6 % [facility] Neutrophils Auto (Bld) [#/Vo l]on 10-30-2023 Neutrophils (Bld) [#/Vol] 5.78 10*3/uL 1.45-7.50 [facility] Neutrophils/100 WBC Auto (Bl d)on 10-30-2023 Neutrophils/100 WBC (Bld) 70.5 % [facility] No Panel Informationon 10-29 Estimated GFR (CKD-EPI) 89 mL/min/1.73m??? >=60 [facility] Comment on above: Estimated Glomerular Filtration [...] GFR. Prostate Specific Antigen 0.16 ng/mL <2.60 [facility] Comment on above: Total PSA test metho dology used is the Electrochemiluminescence Immunoassay by [employer]. Total PSA values by differing methodologies cannot be interchanged. Testosterone Level 78 ng/dL 193-824 [facility] Comment on above: A testosterone level in the 193-320 ng/dL range with associated clinical symptoms is considered low and may indicate hypogonadism (from [facility] 2010 363:123-135). Results >320 ng/dL are considered normal.Result rechecked. Nucleated RBC Auto (Bld) [#/ Vol]on 10-30-2023 Nucleated RBC (Bld) [#/Vol] 10*3/uL <0.01 [facility] Nucleated erythrocytes [Pres ence] in Blood by Automated counton 10-30-2023 Nucleated RBC Auto Ql (Bld) 0.0 /100{WBC} [facility] PSA SerPl-mCncon 10-30-2023 Prostate specific Ag [Mass/Vol] 0.16 ng/mL Normal <2.60 [facility] Comment on above: Order Comment: Speci men Type: BLOOD SPECIMEN Ordering Facility: [facility] Address: [address] [place] [address] Result Comment: Tota l PSA test methodology used is the Electrochemiluminescence Immunoassay by [employer]. Total PSA values by differing methodologies cannot be interchanged. Performed By: #### 5 7021-8 #### [facility] CLIA [id number] [address] [place] [address] 07947 Platelet mean volume Auto (B ld) [Entitic vol]on 10-30-2023 Platelet mean volume (Bld) [Entitic vol] 9.5 fL 9.0-12.7 [facility] Platelets Auto (Bld) [#/Vol] on 10-30-2023 Platelets (Bld) [#/Vol] 192 10*3/uL 150-400 [facility] Protein [Mass/volume] in Ser um or Plasmaon 10-30-2023 Protein [Mass/Vol] 6.5 g/dL 6.3-8.0 [facility] RBC Auto (Bld) [#/Vol]on RBC (Bld) [#/Vol] 3.90 10*6/uL 4.20-6.00 [facility] Serum or plasma anion gap de terminationon 10-30-2023 Anion gap [Moles/Vol] 13 mmol/L 9-18 [facility] Testost SerPl-mCncon 024 Testosterone [Mass/Vol] 78 ng/dL Low 193-824 [facility] Comment on above: Order Comment: Speci men Type: BLOOD SPECIMEN Ordering Facility: [facility] Address: [address] [place] [address] Result Comment: A te stosterone level in the 193-320 ng/dL range with associated clinical symptoms is considered low and may indicate hypogonadism (from [facility] 2010 363:123-135). Results >320 ng/dL are considered normal. Result rechecked. Performed By: #### 5 7021-8 #### [facility] CLIA [id number] [address] [place] [address] Patient Educationon 10-20-19 24 Patient Education Oncology [...] under a microscope. This is called the Roca score and the total score can range from 6?10, indicating how likely it is that the cancer will spread (metastasize) to other parts of the body. The higher the score, the greater the likelihood that the cancer will spread. ? Roca 6 or lower: This indicates that the [...] be (more content not included)... 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 Roca 9 (5+4), pT2b, N0, Mo. Last Lupron [...] Information KAEL JAMES, Anthony Lee, URL [address] [id number]- Additional Instructions: 6 mos w/ PSA and [...] 1 tab(s), Oral, Daily ipratropium Nasal 0.06% [place] metformin 1000 mg oral tablet, Oral, BID metoprolol 25 mg ER Tab, 25 mg= 1 tab(s), Oral, BID Vitamin D3 Xtandi 80 mg oral tablet, Oral, Daily Allergies penicillin G benzathine (Unknown) Social History Alcohol Current, 1-2 times per year, 02/04/2019 Tobacco Never (less than 100 in lifetime) Tobacco Use:. Never Smokeless Tobacco Use:. (more content not included)... Normal [facility] Comment on above: Result Comment: Elec tronically Signed By: Anthony SCRUGGS MD\.br\Date and Time Signed: 10/20/23 09:57 EDT\.br\Electronically Co-Signed By: Olamide Ureña\.br\Date and Time Co-Signed: 10/20/23 09:55 EDT Lab Reportson 10-10-2023 Lab Reports [id number]#1.00TIFF [facility] RAD - MISCon 10-10-2023 RAD - MISC [id number]#1.00TIFF [facility] No Panel Informationon 10-08 Prostate Specific Antigen Total <0.13 ng/mL <=4.00 [facility] No Panel Informationon 08-28 [facility] Type of biopsy: schmidt ential [...] yes Amount of lidocaine used: 0.5 cc [facility] Consultation Noteon 08-04-19 Consultation Note [id number]#1.00TIFF [place] [facility] CNOVSPon 08-03-2023 CNOVSP Visit (SP) Office (H EMASA) ELVIRAPABLO Lopez ([id number]) 1945 M Date Time Provider Department 08/03/23 [...] OTHER PHYSICIANS: Dr. Anthony Scruggs, Dr. Khan, [facility] Cardiology Portions of this encounter note [...] mg 24 hr tablet Take by mouth. 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 Left base margin positive for ne (more content not included)... Normal [facility] CNPNon 08-03-2023 [facility] PABLO FELIX ([id number]) 1945 M Date Time Provider Department 08/03/23 MARCO A ESQUEDA [facility] During your visit today, we recorded the following information about you: Alexandrea Ernst 08/03/2023 9:23 AM Signed Patient needs an appointment with Dermatology for right ear lesion. Yudy/Narciso: Can you please refer patient to [facility] Derm and follow up? Thanks! Naila Rodriguez 08/03/2023 9:51 AM Signed Yudy:Information ready for you. Keysha Neil 08/04/2023 8:05 AM Signed Records faxed to [facility] Dermatology. Naila Liao 08/07/2023 2:54 PM Signed Called [facility] Derm office. Patient is scheduled to see SHOE STAMPER Long Boo on 08/28 @ 11:25. Naila Horne Pss Allergies As of Date: 08/03/2023 Noted Allergy Reaction PENICILLINS 08/06/2014 16 - Unknown SIMVASTATIN 07/05/2002 16 - Unknown Date Reviewed: 08/03/2023 Reviewed by: Katie Rosen MA - Fully Assessed Reason for Visit: Referral Information [9607] Cmt: Dermatology Prescriptions as of 08/07/2023 - [...] 24 hr tablet Take by mouth. - Pbbdquuukiokm-Vvklakwm-Ljkm in (MULTIVITAMIN 50 PLUS) tab Take 1 [...] Status:Closed by ALEXANDREA ERNST on 08/07/23 Normal [facility] CBC W Auto Differential pane l (Bld)on 07-27-2023 Basophils (Bld) [#/Vol] 0.05 10*3/uL Normal <0.11 [facility] Comment on above: Order Comment: Speci men Type: BLOOD SPECIMEN Ordering Facility: [facility] Address: [address] [place] [address] Performed By: #### 5 7021-8 #### [facility] CLIA [id number] [address] [place] [address] 98558 Basophils/100 WBC (Bld) 0.8 % Normal [facility] Comment on above: Order Comment: Speci men Type: BLOOD SPECIMEN Ordering Facility: [facility] Address: [address] [place] [address] Performed By: #### 5 7021-8 #### [facility] CLIA [id number] [address] [place] [address] 03484 Differential cell count method Nom (Bld) Auto Normal [facility] Comment on above: Order Comment: Speci men Type: BLOOD SPECIMEN Ordering Facility: [facility] Address: [address] [place] [address] Performed By: #### 5 7021-8 #### [facility] CLIA [id number] [address] [place] [address] 02192 Eosinophils (Bld) [#/Vol] 0.40 10*3/uL Normal <0.46 [facility] Comment on above: Order Comment: Speci men Type: BLOOD SPECIMEN Ordering Facility: [facility] Address: [address] [place] [address] Performed By: #### 5 7021-8 #### [facility] CLIA [id number] [address] [place] [address] 87894 Eosinophils/100 WBC (Bld) 6.2 % Normal [facility] Comment on above: Order Comment: Speci men Type: BLOOD SPECIMEN Ordering Facility: [facility] Address: [address] [place] [address] Performed By: #### 5 7021-8 #### [facility] CLIA [id number] [address] [place] [address] 60650 Erythrocyte distribution width (RBC) [Ratio] 12.5 % Normal 11.5-15.0 [facility] Comment on above: Order Comment: Speci men Type: BLOOD SPECIMEN Ordering Facility: [facility] Address: [address] [place] [address] Performed By: #### 5 7021-8 #### [facility] CLIA [id number] [address] [place] [address] 30701 Hematocrit (Bld) [Volume fraction] 34.8 % Low 39.0-51.0 [facility] Comment on above: Order Comment: Speci men Type: BLOOD SPECIMEN Ordering Facility: [facility] Address: [address] [place] [address] Performed By: #### 5 7021-8 #### [facility] CLIA [id number] [address] [place] [address] 75749 Hemoglobin (Bld) [Mass/Vol] 11.8 g/dL Low 13.0-17.0 [facility] Comment on above: Order Comment: Speci men Type: BLOOD SPECIMEN Ordering Facility: [facility] Address: [address] [place] [address] Performed By: #### 5 7021-8 #### [facility] CLIA [id number] [address] [place] [address] 57310 Immature granulocytes (Bld) [#/Vol] 0.05 10*3/uL Normal <0.10 [facility] Comment on above: Order Comment: Speci men Type: BLOOD SPECIMEN Ordering Facility: [facility] Address: [address] [place] [address] Performed By: #### 5 7021-8 #### [facility] CLIA [id number] [address] [place] [address] 09412 Immature granulocytes/100 WBC (Bld) 0.8 % Normal [facility] Comment on above: Order Comment: Speci men Type: BLOOD SPECIMEN Ordering Facility: [facility] Address: [address] [place] [address] Performed By: #### 5 7021-8 #### [facility] CLIA [id number] [address] [place] [address] 80355 Lymphocytes (Bld) [#/Vol] 1.78 10*3/uL Normal 1.00-4.00 [facility] Comment on above: Order Comment: Speci men Type: BLOOD SPECIMEN Ordering Facility: [facility] Address: [address] [place] [address] Performed By: #### 5 7021-8 #### [facility] CLIA [id number] [address] [place] [address] 32566 Lymphocytes/100 WBC (Bld) 27.7 % Normal [facility] Comment on above: Order Comment: Speci men Type: BLOOD SPECIMEN Ordering Facility: [facility] Address: [address] [place] [address] Performed By: #### 5 7021-8 #### [facility] CLIA [id number] [address] [place] [address] 04220 MCH (RBC) [Entitic mass] 32.2 pg Normal 26.0-34.0 [facility] Comment on above: Order Comment: Speci men Type: BLOOD SPECIMEN Ordering Facility: [facility] Address: [address] [place] [address] Performed By: #### 5 7021-8 #### [facility] CLIA [id number] [address] [place] [address] 01796 MCHC (RBC) [Mass/Vol] 33.9 g/dL Normal 30.5-36.0 [facility] Comment on above: Order Comment: Speci men Type: BLOOD SPECIMEN Ordering Facility: [facility] Address: [address] [place] [address] Performed By: #### 5 7021-8 #### [facility] CLIA [id number] [address] [place] [address] 45738 MCV (RBC) [Entitic vol] 94.8 fL Normal 80.0-100.0 [facility] Comment on above: Order Comment: Speci men Type: BLOOD SPECIMEN Ordering Facility: [facility] Address: [address] [place] [address] Performed By: #### 5 7021-8 #### [facility] CLIA [id number] [address] [place] [address] 53493 Monocytes (Bld) [#/Vol] 0.67 10*3/uL Normal <0.87 [facility] Comment on above: Order Comment: Speci men Type: BLOOD SPECIMEN Ordering Facility: [facility] Address: [address] [place] [address] Performed By: #### 5 7021-8 #### [facility] CLIA [id number] [address] [place] [address] 35026 Monocytes/100 WBC (Bld) 10.4 % Normal [facility] Comment on above: Order Comment: Speci men Type: BLOOD SPECIMEN Ordering Facility: [facility] Address: [address] [place] [address] Performed By: #### 5 7021-8 #### [facility] CLIA [id number] [address] [place] [address] 02604 Neutrophils (Bld) [#/Vol] 3.48 10*3/uL Normal 1.45-7.50 [facility] Comment on above: Order Comment: Speci men Type: BLOOD SPECIMEN Ordering Facility: [facility] Address: [address] [place] [address] Performed By: #### 5 7021-8 #### [facility] CLIA [id number] [address] [place] [address] 19111 Neutrophils/100 WBC (Bld) 54.1 % Normal [facility] Comment on above: Order Comment: Speci men Type: BLOOD SPECIMEN Ordering Facility: [facility] Address: [address] [place] [address] Performed By: #### 5 7021-8 #### [facility] CLIA [id number] [address] [place] [address] 73647 Nucleated RBC (Bld) [#/Vol] 10*3/uL Normal <0.01 [facility] Comment on above: Order Comment: Speci men Type: BLOOD SPECIMEN Ordering Facility: [facility] Address: [address] [place] [address] Performed By: #### 5 7021-8 #### [facility] CLIA [id number] [address] [place] [address] Nucleated RBC/100 WBC (Bld) [Ratio] 0.0 /100 WBC Normal [facility] Comment on above: Order Comment: Speci men Type: BLOOD SPECIMEN Ordering Facility: [facility] Address: [address] [place] [address] Performed By: #### 5 7021-8 #### [facility] CLIA [id number] [address] [place] [address] 01958 Platelet mean volume (Bld) [Entitic vol] 9.9 fL Normal 9.0-12.7 [facility] Comment on above: Order Comment: Speci men Type: BLOOD SPECIMEN Ordering Facility: [facility] Address: [address] [place] [address] Performed By: #### 5 7021-8 #### [facility] CLIA [id number] [address] [place] [address] 20646 Platelets (Bld) [#/Vol] 199 10*3/uL Normal 150-400 [facility] Comment on above: Order Comment: Speci men Type: BLOOD SPECIMEN Ordering Facility: [facility] Address: [address] [place] [address] Performed By: #### 5 7021-8 #### [facility] CLIA [id number] [address] [place] [address] 36131 RBC (Bld) [#/Vol] 3.67 10*6/uL Low 4.20-6.00 [facility] Comment on above: Order Comment: Speci men Type: BLOOD SPECIMEN Ordering Facility: [facility] Address: [address] [place] [address] Performed By: #### 5 7021-8 #### [facility] CLIA [id number] [address] [place] [address] 54118 WBC (Bld) [#/Vol] 6.43 10*3/uL Normal 3.70-11.00 [facility] Comment on above: Order Comment: Speci men Type: BLOOD SPECIMEN Ordering Facility: [facility] Address: [address] [place] [address] Performed By: #### 5 7021-8 #### [facility] CLIA [id number] [address] [place] [address] 26185 Comprehensive metabolic 2000 panelon 07-27-2023 Albumin [Mass/Vol] 4.2 g/dL Normal 3.9-4.9 [facility] Comment on above: Order Comment: Speci men Type: BLOOD SPECIMEN Ordering Facility: [facility] Address: [address] [place] [address] Performed By: #### 5 7021-8 #### [facility] CLIA [id number] [address] [place] [address] 60787 ALP [Catalytic activity/Vol] 73 U/L Normal 38-113 [facility] Comment on above: Order Comment: Speci men Type: BLOOD SPECIMEN Ordering Facility: [facility] Address: [address] [place] [address] Performed By: #### 5 7021-8 #### [facility] CLIA [id number] [address] [place] [address] 82313 ALT [Catalytic activity/Vol] 16 U/L Normal 10-54 [facility] Comment on above: Order Comment: Speci men Type: BLOOD SPECIMEN Ordering Facility: [facility] Address: [address] [place] [address] Performed By: #### 5 7021-8 #### [facility] CLIA [id number] [address] [place] [address] 94762 Anion gap [Moles/Vol] 10 mmol/L Normal 9-18 [facility] Comment on above: Order Comment: Speci men Type: BLOOD SPECIMEN Ordering Facility: [facility] Address: [address] [place] [address] Performed By: #### 5 7021-8 #### [facility] CLIA [id number] [address] [place] [address] 71391 AST [Catalytic activity/Vol] 17 U/L Normal 14-40 [facility] Comment on above: Order Comment: Speci men Type: BLOOD SPECIMEN Ordering Facility: [facility] Address: [address] [place] [address] Performed By: #### 5 7021-8 #### [facility] CLIA [id number] [address] [place] [address] 61983 Bilirubin [Mass/Vol] 0.6 mg/dL Normal 0.2-1.3 [facility] Comment on above: Order Comment: Speci men Type: BLOOD SPECIMEN Ordering Facility: [facility] Address: [address] [place] [address] Performed By: #### 5 7021-8 #### [facility] CLIA [id number] [address] [place] [address] 45663 Calcium [Mass/Vol] 9.5 mg/dL Normal 8.5-10.2 [facility] Comment on above: Order Comment: Speci men Type: BLOOD SPECIMEN Ordering Facility: [facility] Address: [address] [place] [address] Performed By: #### 5 7021-8 #### [facility] CLIA [id number] [address] [place] [address] 20587 Chloride [Moles/Vol] 102 mmol/L Normal 97-105 [facility] Comment on above: Order Comment: Speci men Type: BLOOD SPECIMEN Ordering Facility: [facility] Address: [address] [place] [address] Performed By: #### 5 7021-8 #### [facility] CLIA [id number] [address] [place] [address] 30443 CO2 [Moles/Vol] 26 mmol/L Normal 22-30 [facility] Comment on above: Order Comment: Speci men Type: BLOOD SPECIMEN Ordering Facility: [facility] Address: [address] [address] Performed By: #### 5 7021-8 #### [facility] CLIA [id number] [address] [place] [address] 68732 Creatinine [Mass/Vol] 0.85 mg/dL Normal 0.73-1.22 [facility] Comment on above: Order Comment: Nicanor camilo Type: BLOOD SPECIMEN Ordering Facility: [facility] Address: [address] [place], [place] [address] Performed By: #### 5 7021-8 #### [facility] CLIA [id number] [address] [place] [address] 74071 Creatinine and Glomerular filtration rate.predicted panel (S/P/Bld) 89 mL/min/1.73m??? Normal >=60 [facility] Comment on above: Order Comment: Nicanor camilo Type: BLOOD SPECIMEN Ordering Facility: [facility] Address: [address] [place] [address] Result Comment: Renae mated Glomerular Filtration Rate [...] accurately reflect actual GFR. Performed By: #### 5 7021-8 #### [facility] CLIA [id number] [address] [place] [address] 31449 Glucose [Mass/Vol] 117 mg/dL High 74-99 [facility] Comment on above: Order Comment: Nicanor camilo Type: BLOOD SPECIMEN Ordering Facility: [facility] Address: [address] [place], [place] [address] Result Comment: The [place] Diabetes Association (ADA) provides guidance for cutoff [...] Standards of Medical Care in Diabetes 2016, [place] Diabetes Association. Diabetes Care. 2016.39(Suppl 1). Performed By: #### 5 7021-8 #### [facility] CLIA [id number] [address] [place] [address] Potassium [Moles/Vol] 4.8 mmol/L Normal 3.7-5.1 [facility] Comment on above: Order Comment: Speci men Type: BLOOD SPECIMEN Ordering Facility: [facility] Address: [address] [place] [address] Performed By: #### 5 7021-8 #### [facility] CLIA [id number] [address] [place] [address] 97152 Protein [Mass/Vol] 6.6 g/dL Normal 6.3-8.0 [facility] Comment on above: Order Comment: Speci men Type: BLOOD SPECIMEN Ordering Facility: [facility] Address: [address] [place] [address] Performed By: #### 5 7021-8 #### [facility] CLIA [id number] [address] [place] [address] 86526 Sodium [Moles/Vol] 138 mmol/L Normal 136-144 [facility] Comment on above: Order Comment: Speci men Type: BLOOD SPECIMEN Ordering Facility: [facility] Address: [address] [place] [address] Performed By: #### 5 7021-8 #### [facility] CLIA [id number] [address] [place] [address] 34962 Urea nitrogen [Mass/Vol] 13 mg/dL Normal 9-24 [facility] Comment on above: Order Comment: Speci men Type: BLOOD SPECIMEN Ordering Facility: [facility] Address: [address] [address] Performed By: #### 5 7021-8 #### [facility] CLIA [id number] [address] [place] [address] [facility] 07-27-2023 Prostate specific Ag [Mass/Vol] 0.13 ng/mL Normal <2.60 [facility] Comment on above: Order Comment: Speci men Type: BLOOD SPECIMEN Ordering Facility: [facility] Address: [address] [place] [address] Result Comment: Terrie velasquez PSA test methodology used is the Electrochemiluminescence Immunoassay by [employer]. Total PSA values by differing methodologies cannot be interchanged. Performed By: #### 5 7021-8 #### [facility] CLIA [id number] [address] [place] [address] 46100 Office Visiton 06-22-2023 Follow-up visit [id number] Pablo Felix 1945 M Date Provider Department Center 06/22/2023 Erika-BRIDGER MULLIGAN Family History Problem Relation Age of Onset Coronary artery disease Father Family Status - Relation Status Age at Father Level of Service:74887 RI OFFICE/OUTPATIENT ESTABLISHED MOD MDM 30-39 MIN Normal [facility] RAD - MISCon 04-24-2023 RAD - MISC [id number]#1.00TIFF Normal [facility] GLYCOHEMOGLOBIN A1Con 2022 ADA RECOMMENDATION SEE BELOW Normal [facility] Comment on above: Result Comment: ADA RECOMMENDED LIMIT 4.0 - 6.0 ADA THERAPEUTIC TARGET < 7.0 ACTION SUGGESTED > 7.0 Performed By: #### D ATA1C #### [facility] [address] [address] [address] Bharati Aguiar Glucose [Mass/Vol] 131 mg/dL Normal [facility] Comment on above: Performed By: #### D ATA1C #### [facility] [address] [place], [place] [address] Dr. Bharati Aguiar HbA1c (Bld) [Mass fraction] 6.2 % Normal 4.5-6.2 [facility] Comment on above: Performed By: #### D ATA1C #### [facility] [address] [address] [address] Bharati Aguiar XR CSPINE OBL FLEX_EXTon 01- 05-2023 XR CSPINE OBL FLEX_EXT EXAMINATION: XR CSPINE [...] by: CYNTHIA TORRES Date: 2022-07-21 15:52 Normal [facility] GLYCOHEMOGLOBIN A1Con 2021 ADA RECOMMENDATION SEE BELOW Normal [facility] Comment on above: Result Comment: ADA RECOMMENDED LIMIT 4.0 - 6.0 ADA THERAPEUTIC TARGET < 7.0 ACTION SUGGESTED > 7.0 Performed By: #### D ATA1C #### [facility] [address] [address] [address] Bharati Aguiar Glucose [Mass/Vol] 134 mg/dL Normal [facility] Comment on above: Performed By: #### D ATA1C #### [facility] [address] [address] [address] Bharati Aguiar HbA1c (Bld) [Mass fraction] 6.3 % Critically high 4.5-6.2 [facility] Comment on above: Performed By: #### D ATA1C #### [facility] [address] [address] [address] Bharati Aguiar ECHOCARDIO M/2D COMPLETEon 1 ECHOCARDIO M/2D COMPLETE Patient: PABLO FELIX Exam Date: 04/27/2022 : 1945 Gender:M Ordering : LORA ENGLISH Admission #: [id number] Family : DR JAMAR FALL DSony Order #: [id number] CLICK HERE TO VIEW EXAM ECHOCARDIOGRAM REPORT [...] Carreon M.D. on 04/28/2022 at 19:09 Normal [facility] GLYCOHEMOGLOBIN A1Con 2021 ADA RECOMMENDATION SEE BELOW Normal [facility] Comment on above: Result Comment: ADA RECOMMENDED LIMIT 4.0 - 6.0 ADA THERAPEUTIC TARGET < 7.0 ACTION SUGGESTED > 7.0 Performed By: #### D ATA1C ####[facility] [address] [address]DrJunior Aguiar Glucose [Mass/Vol] 137 mg/dL Normal [facility] Comment on above: Performed By: #### D ATA1C ####[facility] [id number] [id number] Aguiar HbA1c (Bld) [Mass fraction] 6.4 % Critically high 4.5-6.2 [facility] Comment on above: Performed By: #### D ATA1C ####[facility] [id number] [id number]. Bharati Aguiar NM BONE SC WH BODYon [...] it was not obviously included in the [id number] of the recent CT. There are foci [...] FEDE DE JESUS Date: 2021-11-06 12:45 Normal [facility] CT CHEST W CONon 11-05-2021 CT [...] LUIZ UMANA Date: 2021-11-05 14:08 Normal [facility] PROF 14(COMP METB)on 022 Albumin [Mass/Vol] 3.6 g/dL Normal 3.4-5.0 [facility] Comment on above: Performed By: #### C MP #### [facility] Laboratory [address] [place] [address] Dr. Bharati Aguiar Albumin/Globulin [Mass ratio] 1.1 {ratio} Normal [facility] Comment on above: Performed By: #### C MP #### [facility] [address] [place] [address] Dr. Bharati Aguiar ALP [Catalytic activity/Vol] 89 U/L Normal 46-116 [facility] Comment on above: Performed By: #### C MP #### [facility] [address] [place] [address] Dr. Bharati Aguiar ALT [Catalytic activity/Vol] 33 U/L Normal 16-63 [facility] Comment on above: Performed By: #### C MP #### [facility] [address] [place] [address] Dr. Bharati Aguiar Anion gap [Moles/Vol] 12.1 mmol/L Normal [facility] Comment on above: Performed By: #### C MP #### [facility] [address] [place] [address] Dr. Bharati Aguiar AST [Catalytic activity/Vol] 19 U/L Normal 15-37 [facility] Comment on above: Performed By: #### C MP #### [facility] Laboratory [address] [address] [address] Bharati Aguiar Bilirubin [Mass/Vol] 0.9 mg/dL Normal 0.2-1.3 [facility] Comment on above: Performed By: #### C MP #### [facility] [address] [place] [address] Dr. Bharati Aguiar Calcium [Mass/Vol] 8.8 mg/dL Normal 8.5-10.1 [facility] Comment on above: Performed By: #### C MP #### [facility] [address] [place] [address] Dr. Bharati Aguiar Chloride [Moles/Vol] 103 mmol/L Normal 98-107 [facility] Comment on above: Performed By: #### C MP #### [facility] [address] [place] [address] Dr. Bharati Aguiar CO2 [Moles/Vol] 28.6 mmol/L Normal 22.0-30.0 [facility] Comment on above: Performed By: #### C MP #### [facility] [address] [place] [address] Dr. Bharati Aguiar Creatinine [Mass/Vol] 0.85 mg/dL Normal 0.66-1.25 [facility] Comment on above: Performed By: #### C MP #### [facility] [address] [address] [address] Bharati Aguiar EGFR-AF ICELANDIC >60 Normal >=60 [facility] Comment on above: Performed By: #### C MP #### [facility] [address] [place] [address] Dr. Bharati Aguiar EGFR-NON AF ICELANDIC >60 Normal >=60 [facility] Comment on above: Performed By: #### C MP #### [facility] [address] [address] [address] Bharati Aguiar Globulin (S) [Mass/Vol] 3.4 g/dL Normal [facility] Comment on above: Performed By: #### C MP #### [facility] [address] [address] [address] Bharati Aguiar Glucose [Mass/Vol] 127 mg/dL Critically high 74-106 T [facility] Comment on above: Performed By: #### C MP #### [facility] [address] [place] [address] Dr. Bharati Aguiar Potassium [Moles/Vol] 4.7 mmol/L Normal 3.4-5.0 [facility] Comment on above: Performed By: #### C MP #### [facility] [address] [place] [address] Dr. Bharati Aguiar Protein [Mass/Vol] 7.0 g/dL Normal 6.1-8.2 [facility] Comment on above: Performed By: #### C MP #### [facility] [address] [place] [address] Dr. Bharati Aguiar Sodium [Moles/Vol] 139 mmol/L Normal 137-145 [facility] Comment on above: Performed By: #### C MP #### [facility] [address] [place] [address] Dr. Bharati Aguiar Urea nitrogen [Mass/Vol] 18.0 mg/dL Normal 7.0-18.0 [facility] Comment on above: Performed By: #### C MP #### [facility] [address] [place] [address] Dr. Bharati Aguiar Urea nitrogen/Creatinin e [Mass ratio] 21.2 mg/mg Normal [facility] Comment on above: Performed By: #### C MP #### [facility] [address] [place] [address] Dr. Bharati Aguiar Vital Signs Date Time Vital Sign Value Performing Clinician Facility 05-09-2024 08:52-0400 Body mass index (BMI) [Ratio] 32.79 kg/m2 Marco A Esqueda MD Work Phone: [facility] 05-09-2024 08:52-0400 Body temperature 97.3 [degF] Marco A Esqueda MD Work Phone: [facility] 05-09-2024 08:52-0400 Body weight 92.1 kg Marco A Esqueda MD Work Phone: [facility] 05-09-2024 08:52-0400 Diastolic blood pressure 62 mm[Hg] Marco A Esqueda MD Work Phone: [facility] 05-09-2024 08:52-0400 Heart rate 62 /min Marco A Esqueda MD Work Phone: [facility] 05-09-2024 08:52-0400 Respiratory rate 16 /min Marco A Esqueda MD Work Phone: [facility] 05-09-2024 08:52-0400 SaO2% (BldA) [Mass fraction] 99 % Marco A Esqueda MD Work Phone: [facility] 05-09-2024 08:52-0400 Systolic blood pressure 141 mm[Hg] Marco A Esqueda MD Work Phone: [facility] 04-19-2024 08:15-0400 Blood Pressure Location Anthony SCRUGGS [facility] 04-19-2024 08:15-0400 Body temperature 98.6 [degF] Anthony SCRUGGS [facility] 04-19-2024 08:15-0400 Diastolic blood pressure 69 mm[Hg] Anthony SCRUGGS [facility] 04-19-2024 08:15-0400 Heart rate 64 /min Anthony SCRUGGS [facility] 04-19-2024 08:15-0400 Respiratory rate 17 /min Anthony SCRUGGS [facility] 04-19-2024 08:15-0400 Systolic blood pressure 129 mm[Hg] Anthony SCRUGGS [facility] 03-26-2024 08:37-0400 Body height 168.91 cm [facility] 03-26-2024 08:37-0400 Body mass index (BMI) [Ratio] 33 kg/m2 [facility] 03-26-2024 08:37-0400 Body weight 94.12 kg [facility] 03-26-2024 08:37-0400 Diastolic blood pressure 80 mm[Hg] [facility] 03-26-2024 08:37-0400 Heart rate 52 /min [facility] 03-26-2024 08:37-0400 Respiratory rate 12 /min [facility] 03-26-2024 08:37-0400 Systolic blood pressure 130 mm[Hg] [facility] 02-02-2024 11:06-0400 Body height 167.6 cm Lynne Gross BLEACH MAKER.CLERK OPERATOR Work Phone: [facility] 02-02-2024 11:06-0400 Body mass index (BMI) [Ratio] 33.36 kg/m2 Lynne Gross BLEACH MAKER.CLERK OPERATOR Work Phone: [facility] 02-02-2024 11:06-0400 Body temperature 97.3 [degF] Lynne Gross BLEACH MAKER.CLERK OPERATOR Work Phone: [facility] 02-02-2024 11:06-0400 Body weight 93.7 kg Lynne Gross BLEACH MAKER.CLERK OPERATOR Work Phone: [facility] 02-02-2024 11:06-0400 Diastolic blood pressure 54 mm[Hg] Lynne Gross BLEACH MAKER.CLERK OPERATOR Work Phone: [facility] 02-02-2024 11:06-0400 Heart rate 52 /min Lynne Gross BLEACH MAKER.CLERK OPERATOR Work Phone: [facility] 02-02-2024 11:06-0400 Respiratory rate 16 /min Lynne Gross BLEACH MAKER.CLERK OPERATOR Work Phone: [facility] 02-02-2024 11:06-0400 SaO2% (BldA) [Mass fraction] 98 % Lynne Alarcon APRN.CLERK OPERATOR Work Phone: [facility] 02-02-2024 11:06-0400 Systolic blood pressure 137 mm[Hg] Lynne Alarcon APRN.CLERK OPERATOR Work Phone: [facility] 11-23-2023 08:38-0400 Body height 168.91 cm [facility] 11-23-2023 08:38-0400 Body mass index (BMI) [Ratio] 33.2 kg/m2 [facility] 11-23-2023 08:38-0400 Body weight 94.8 kg [facility] 11-23-2023 08:38-0400 Diastolic blood pressure 69 mm[Hg] [facility] 11-23-2023 08:38-0400 Heart rate 48 /min [facility] 11-23-2023 08:38-0400 Respiratory rate 12 /min [facility] 11-23-2023 08:38-0400 Systolic blood pressure 130 mm[Hg] [facility] 11-02-2023 09:14-0400 Body height 167.6 cm Christo Howard APRN.CLERK OPERATOR Work Phone: [facility] 11-02-2023 09:14-0400 Body temperature 97.81 [degF] Christo Howard APRN.CLERK OPERATOR Work Phone: [facility] 11-02-2023 09:14-0400 Body weight 92.9 kg Christo Howard APRN.CLERK OPERATOR Work Phone: [facility] 11-02-2023 09:14-0400 Diastolic blood pressure 44 mm[Hg] Christo Howard APRN.CLERK OPERATOR Work Phone: [facility] 11-02-2023 09:14-0400 Heart rate 56 /min Christo Howard APRN.CLERK OPERATOR Work Phone: [facility] 11-02-2023 09:14-0400 Respiratory rate 16 /min Christo Howard APRN.CLERK OPERATOR Work Phone: [facility] 11-02-2023 09:14-0400 SaO2% (BldA) [Mass fraction] 97 % Christo Howard APRN.CLERK OPERATOR Work Phone: [facility] 11-02-2023 09:14-0400 Systolic blood pressure 123 mm[Hg] Christo Howard APRN.CLERK OPERATOR Work Phone: [facility] 10-20-2023 09:05-0400 Blood Pressure Location Anthony SCRUGGS [facility] 10-20-2023 09:05-0400 Diastolic blood pressure 64 mm[Hg] Anthonycindy SCRUGGS [facility] 10-20-2023 09:05-0400 Heart rate 53 /min Anthonycindy SCRUGGS [facility] 10-20-2023 09:05-0400 Respiratory rate 16 /min Anthony SCRUGGS [facility] 10-20-2023 09:05-0400 Systolic blood pressure 110 mm[Hg] Anthony SCRUGGS [facility] 09-12-2023 14:13-0500 Body height 168.91 cm [facility] 09-12-2023 14:13-0500 Body mass index (BMI) [Ratio] 33.4 kg/m2 [facility] 09-12-2023 14:13-0500 Body weight 95.42 kg [facility] 09-12-2023 14:13-0500 Diastolic blood pressure 84 mm[Hg] [facility] 09-12-2023 14:13-0500 Heart rate 56 /min [facility] 09-12-2023 14:13-0500 Respiratory rate 12 /min [facility] 02-27-2024 14:13-0500 Systolic blood pressure 143 mm[Hg] [facility] 08-24-2023 08:30-0500 Body height 168.91 cm Jamar Ball Other [place] Other 08-24-2023 08:30-0500 Body mass index (BMI) [Ratio] 34.08 kg/m2 Jamar Ball Other [place] Other 08-24-2023 08:30-0500 Body weight 97.25 kg Jamar Ball Other [place] Other 08-24-2023 08:30-0500 Diastolic blood pressure 81 mm[Hg] Jamar Ball Other [place] Other 08-24-2023 08:30-0500 Respiratory rate 12 /min Jamar Ball Other [place] Other 08-24-2023 08:30-0500 Systolic blood pressure 125 mm[Hg] Jamar Ball Other [place] Other 05-30-2023 15:00-0500 Body height 168.91 cm Jamar Ball Other [place] Other 05-30-2023 15:00-0500 Body mass index (BMI) [Ratio] 32.84 kg/m2 Jamar Ball Other [place] Other 05-30-2023 15:00-0500 Body weight 93.71 kg Jamar Ball Other [place] Other 05-30-2023 15:00-0500 Diastolic blood pressure 66 mm[Hg] Jamar Ball Other [place] Other 05-30-2023 15:00-0500 Respiratory rate 12 /min Jamar Ball Other [place] Other 05-30-2023 15:00-0500 Systolic blood pressure 141 mm[Hg] Jamar Ball Other [place] Other 05-01-2023 09:45-0400 Body height 168.91 cm Jamar Ball Other [place] Other 05-01-2023 09:45-0400 Body mass index (BMI) [Ratio] 32.14 kg/m2 Jamar Ball Other [place] Other 05-01-2023 09:45-0400 Body weight 91.72 kg Jamar Ball Other [place] Other 05-01-2023 09:45-0400 Diastolic blood pressure 62 mm[Hg] Jamar Ball Other [place] Other 05-01-2023 09:45-0400 Respiratory rate 12 /min Jamar Ball Other [place] Other 05-01-2023 09:45-0400 Systolic blood pressure 129 mm[Hg] Jamar Ball Other [place] Other 04-27-2023 09:23-0400 Diastolic blood pressure 49 mm[Hg] Christo Howard APRN.CLERK OPERATOR Work Phone: [facility] 04-27-2023 09:23-0400 Heart rate 50 /min Christo Howard APRN.CLERK OPERATOR Work Phone: [facility] 04-27-2023 09:23-0400 Systolic blood pressure 141 mm[Hg] Christo Howard APRN.CLERK OPERATOR Work Phone: [facility] 04-27-2023 09:20-0400 Body height 167.6 cm Christo Howard APRN.CLERK OPERATOR Work Phone: [facility] 04-27-2023 09:20-0400 Body temperature 97 [degF] Christo Howard BLEACH MAKER.CLERK OPERATOR Work Phone: [facility] 04-27-2023 09:20-0400 Body weight 92.53 kg Christo Howard BLEACH MAKER.CLERK OPERATOR Work Phone: [facility] 04-27-2023 09:20-0400 Respiratory rate 16 /min Christo Howard BLEACH MAKER.CLERK OPERATOR Work Phone: [facility] 04-27-2023 09:20-0400 SaO2% (BldA) [Mass fraction] 100 % Christo Howard BLEACH MAKER.CLERK OPERATOR Work Phone: [facility] 04-17-2023 08:45-0400 Blood Pressure Location Anthony SCRUGGS [facility] 04-17-2023 08:45-0400 Diastolic blood pressure 68 mm[Hg] Anthony SCRUGGS [facility] 04-17-2023 08:45-0400 Heart rate 62 /min Anthony SCRUGGS [facility] 04-17-2023 08:45-0400 Respiratory rate 16 /min Anthony SCRUGGS [facility] 04-17-2023 08:45-0400 Systolic blood pressure 130 mm[Hg] Anthony SCRUGG[facility] 04-05-2023 13:45-0400 Body height 168.91 cm Jamar Fall Other [place] Other 04-05-2023 13:45-0400 Body mass index (BMI) [Ratio] 32.46 kg/m2 Jamar Fall Other [place] Other 04-05-2023 13:45-0400 Body weight 92.63 kg Jamar Ball Other [place] Other 04-05-2023 13:45-0400 Diastolic blood pressure 67 mm[Hg] Jamar Ball Other [place] Other 04-05-2023 13:45-0400 Respiratory rate 12 /min Jamar Ball Other [place] Other 04-05-2023 13:45-0400 Systolic blood pressure 109 mm[Hg] Jamar Ball Other [place] Other 03-15-2023 08:45-0400 Body height 168.91 cm Jamar Ball Other [place] Other 03-15-2023 08:45-0400 Body mass index (BMI) [Ratio] 32.81 kg/m2 Jamar Ball Other [place] Other 03-15-2023 08:45-0400 Body weight 93.62 kg Jamar Ball Other [place] Other 03-15-2023 08:45-0400 Diastolic blood pressure 69 mm[Hg] Ajmar Ball Other [place] Other 03-15-2023 08:45-0400 Respiratory rate 12 /min Jamar Ball Other [place] Other 03-15-2023 08:45-0400 Systolic blood pressure 131 mm[Hg] Jamar Ball Other [place] Other 02-02-2023 09:32-0400 Body height 167.6 cm Marco A Esqueda MD Work Phone: [facility] 02-02-2023 09:32-0400 Body temperature 97.2 [degF] Marco A Esqueda MD Work Phone: [facility] 02-02-2023 09:32-0400 Body weight 96.62 kg Marco A Esqueda MD Work Phone: [facility] 02-02-2023 09:32-0400 Diastolic blood pressure 43 mm[Hg] Marco A Esqueda MD Work Phone: [facility] 02-02-2023 09:32-0400 Heart rate 50 /min Marco A Esqueda MD Work Phone: [facility] 02-02-2023 09:32-0400 Respiratory rate 16 /min Marco A Esqueda MD Work Phone: [facility] 02-02-2023 09:32-0400 SaO2% (BldA) [Mass fraction] 97 % Marco A Esqueda MD Work Phone: [facility] 02-02-2023 09:32-0400 Systolic blood pressure 131 mm[Hg] Marco A Esqueda MD Work Phone: [facility] 11-10-2022 09:30-0400 Body height 167.6 cm Christo Howard BLEACH MAKER.CLERK OPERATOR Work Phone: [facility] 11-10-2022 09:30-0400 Body temperature 97.11 [degF] Christo Howard BLEACH MAKER.CLERK OPERATOR Work Phone: [facility] 11-10-2022 09:30-0400 Body weight 96.44 kg Christo Howard APRN.CLERK OPERATOR Work Phone: [facility] 11-10-2022 09:30-0400 Diastolic blood pressure 68 mm[Hg] Christo Howard APRN.CLERK OPERATOR Work Phone: [facility] 11-10-2022 09:30-0400 Heart rate 54 /min Christo Howard APRN.CLERK OPERATOR Work Phone: [facility] 11-10-2022 09:30-0400 Respiratory rate 16 /min Christo Howard APRN.CLERK OPERATOR Work Phone: [facility] 11-10-2022 09:30-0400 SaO2% (BldA) [Mass fraction] 98 % Christo Howard BLEACH MAKER.CLERK OPERATOR Work Phone: [facility] 11-10-2022 09:30-0400 Systolic blood pressure 134 mm[Hg] Christo Howard APRN.CLERK OPERATOR Work Phone: [facility] 09-16-2022 08:30-0500 Body height 168.91 cm Jamar Ball Other [place] Other 09-16-2022 08:30-0500 Body mass index (BMI) [Ratio] 33.16 kg/m2 Jamar Ball Other [place] Other 09-16-2022 08:30-0500 Body weight 94.62 kg Jamar Ball Other [place] Other 09-16-2022 08:30-0500 Diastolic blood pressure 78 mm[Hg] Jamar Ball Other [place] Other 09-16-2022 08:30-0500 Respiratory rate 12 /min Jamar Ball Other [place] Other 09-16-2022 08:30-0500 Systolic blood pressure 116 mm[Hg] Jamar Ball Other [place] Other 09-09-2022 08:30-0500 Body height 168.91 cm Jamar Ball Other [place] Other 09-09-2022 08:30-0500 Body mass index (BMI) [Ratio] 33.45 kg/m2 Jamar Ball Other [place] Other 09-09-2022 08:30-0500 Body weight 95.44 kg Jamar Ball Other [place] Other 09-09-2022 08:30-0500 Diastolic blood pressure 76 mm[Hg] Jamar Ball Other [place] Other 09-09-2022 08:30-0500 Respiratory rate 12 /min Jamar Ball Other [place] Other 09-09-2022 08:30-0500 Systolic blood pressure 118 mm[Hg] Jamar Ball Other [place] Other 09-09-2022 07:30-0500 Body height 168.91 cm Jamar Ball Other [place] Other 09-09-2022 07:30-0500 Body mass index (BMI) [Ratio] 33.45 kg/m2 Jamar Ball Other [place] Other 09-09-2022 07:30-0500 Body weight 95.44 kg Jamar Ball Other [place] Other 09-09-2022 07:30-0500 Diastolic blood pressure 76 mm[Hg] Jamar Ball Other [place] Other 09-09-2022 07:30-0500 Respiratory rate 12 /min Jamar Ball Other [place] Other 09-09-2022 07:30-0500 Systolic blood pressure 118 mm[Hg] Jamar Ball Other [place] Other 08-11-2022 09:24-0500 Body height 167.6 cm Marco A Esqueda MD Work Phone: [facility] 08-11-2022 09:24-0500 Body temperature 97 [degF] Marco A Esqueda MD Work Phone: [facility] 08-11-2022 09:24-0500 Body weight 96.44 kg Marco A Esqueda MD Work Phone: [facility] 08-11-2022 09:24-0500 Diastolic blood pressure 56 mm[Hg] Marco A Esqueda MD Work Phone: [facility] 08-11-2022 09:24-0500 Heart rate 53 /min Marco A Esqueda MD Work Phone: [facility] 08-11-2022 09:24-0500 Respiratory rate 16 /min Marco A Esqueda MD Work Phone: [facility] 08-11-2022 09:24-0500 SaO2% (BldA) [Mass fraction] 97 % Marco A Esqueda MD Work Phone: [facility] 08-11-2022 09:24-0500 Systolic blood pressure 129 mm[Hg] Marco A Esqueda MD Work Phone: [facility] 07-21-2022 15:30-0500 Body height 168.91 cm Jamar Ball Other [place] Other 07-21-2022 15:30-0500 Body mass index (BMI) [Ratio] 34.18 kg/m2 Jamar Ball Other [place] Other 07-21-2022 15:30-0500 Body weight 97.52 kg Jamar Ball Other [place] Other 07-21-2022 15:30-0500 Diastolic blood pressure 76 mm[Hg] Jamar Ball Other [place] Other 07-21-2022 15:30-0500 Respiratory rate 16 /min Jamar Ball Other [place] Other 07-21-2022 15:30-0500 Systolic blood pressure 118 mm[Hg] Jamar Ball Other [place] Other 05-13-2022 09:07-0400 Blood Pressure Location Anthony SCRUGGS [facility] 05-13-2022 09:07-0400 Diastolic blood pressure 72 mm[Hg] Anthony SCRUGGS [facility] 05-13-2022 09:07-0400 Heart rate 55 /min nAthony SCRUGGS [facility] 05-13-2022 09:07-0400 Respiratory rate 16 /min Anthony SCRUGGS [facility] 05-13-2022 09:07-0400 Systolic blood pressure 108 mm[Hg] Anthony SCRUGGS [facility] 05-12-2022 10:41-0400 Body temperature 97.81 [degF] LUAN Khan MD Work Phone: [facility] 05-12-2022 10:41-0400 Body weight 95.07 kg LUAN Khan MD Work Phone: [facility] 05-12-2022 10:41-0400 Diastolic blood pressure 42 mm[Hg] LUAN Khan MD Work Phone: [facility] 05-12-2022 10:41-0400 Heart rate 51 /min LUAN Khan MD Work Phone: [facility] 05-12-2022 10:41-0400 Respiratory rate 18 /min LUAN Khan MD Work Phone: [facility] 05-12-2022 10:41-0400 SaO2% (BldA) [Mass fraction] 99 % LUAN Khan MD Work Phone: [facility] 05-12-2022 10:41-0400 Systolic blood pressure 134 mm[Hg] LUAN Khan MD Work Phone: [facility] 02-17-2022 09:36-0400 Body height 167.6 cm Marco A Esqueda MD Work Phone: [facility] 02-17-2022 09:36-0400 Body temperature 97.9 [degF] Marco A Esqueda MD Work Phone: [facility] 02-17-2022 09:36-0400 Body weight 97.07 kg Marco A Esqueda MD Work Phone: [facility] 02-17-2022 09:36-0400 Diastolic blood pressure 58 mm[Hg] Marco A Esqueda MD Work Phone: [facility] 02-17-2022 09:36-0400 Heart rate 63 /min Marco A Esqueda MD Work Phone: [facility] 02-17-2022 09:36-0400 Respiratory rate 16 /min Marco A Esqueda MD Work Phone: [facility] 02-17-2022 09:36-0400 SaO2% (BldA) [Mass fraction] 99 % Marco A Esqueda MD Work Phone: [facility] 02-17-2022 09:36-0400 Systolic blood pressure 133 mm[Hg] Marco A Esqueda MD Work Phone: [facility] 11-18-2021 10:50-0400 Body temperature 97.7 [degF] [facility] [place] Work Phone: [facility] 11-18-2021 10:50-0400 Diastolic blood pressure 63 mm[Hg] [facility] [place] Work Phone: [facility] 11-18-2021 10:50-0400 Heart rate 60 /min [facility] [place] Work Phone: [facility] 11-18-2021 10:50-0400 Respiratory rate 18 /min [facility] [place] Work Phone: [facility] 11-18-2021 10:50-0400 SaO2% (BldA) [Mass fraction] 95 % [facility] [place] Work Phone: [facility] 11-18-2021 10:50-0400 Systolic blood pressure 139 mm[Hg] [facility] [place] Work Phone: [facility] 11-11-2021 13:58-0400 Body height 167.6 cm Marco A Esqueda MD Work Phone: [facility] 11-11-2021 13:58-0400 Body temperature 97.39 [degF] Marco A Esqueda MD Work Phone: [facility] 11-11-2021 13:58-0400 Body weight 98.97 kg Marco A Esqueda MD Work Phone: [facility] 11-11-2021 13:58-0400 Diastolic blood pressure 54 mm[Hg] Marco A Esqueda MD Work Phone: [facility] 11-11-2021 13:58-0400 Heart rate 68 /min Marco A Esqueda MD Work Phone: [facility] 11-11-2021 13:58-0400 Respiratory rate 16 /min Marco A Esqueda MD Work Phone: [facility] 11-11-2021 13:58-0400 SaO2% (BldA) [Mass fraction] 98 % Marco A Esqueda MD Work Phone: [facility] 11-11-2021 13:58-0400 Systolic blood pressure 130 mm[Hg] Marco A Esqueda MD Work Phone: [facility] 11-08-2021 13:03-0400 Blood Pressure Location Anthony SCRUGGS [facility] 11-08-2021 13:03-0400 Diastolic blood pressure 60 mm[Hg] Anthony SCRUGGS [facility] 11-08-2021 13:03-0400 Heart rate 61 /min Anthony SCRUGGS [facility] 11-08-2021 13:03-0400 Systolic blood pressure 135 mm[Hg] Anthony SCRUGGS [facility] Encounters Encounter Date Encounter Type Care Provider Facility Start: 10-07-2024 ambulatory Anthony SCRUGGS Facili ty:[facility] Start: 05-09-2024 End: 05-09-2024 ambulatory Lab[facility] Ariella Work Phone: Hematology/Oncology Comment on above: Malignant neoplasm o f prostate (HCC) (Primary Dx) Start: 05-09-2024 End: 05-09-2024 Patient encounter procedure Marco A Esqueda MD Work Phone: Hematology/Oncology Start: 05-08-2024 End: 05-08-2024 Refill Aida Luo [facility] Work Phone: [facility] Comment on above: Refill Request Start: 05-03-2024 End: 05-03-2024 ambulatory JAMAR FALL Facility:[facility] Start: 04-19-2024 End: 04-19-2024 ambulatory Anthony SCRUGGS Facility:[facility] Start: 04-19-2024 End: 04-19-2024 Patient encounter procedure Anthony SCRUGGS [facility] Start: 04-01-2024 End: 04-01-2024 Refill Marco A Esqueda MD Work Phone: Hematology/Oncology Comment on above: Refill Request Start: 04-01-2024 End: 04-01-2024 Refill Aida Luo [facility] Work Phone: [facility] Comment on above: Refill Request Start: 03-29-2024 Encounter for preprocedural cardiovascular examination LORA ENGLISH [facility] Start: 03-29-2024 End: 04-01-2024 ambulatory [facility] Start: 03-29-2024 End: 04-01-2024 Encounter for other preprocedural examination [facility] Start: 03-29-2024 End: 04-01-2024 Encounter for preprocedural cardiovascular examination [facility] Start: 03-26-2024 End: 03-26-2024 ambulatory [facility] Work Phone: Start: 03-26-2024 End: 03-26-2024 Patient encounter procedure [facility] Work Phone: Start: 02-29-2024 End: 02-29-2024 ambulatory ALEXIA FRANCO Not Available Start: 02-26-2024 End: 02-26-2024 ambulatory LONG BOO Not Available Start: 02-02-2024 End: 02-02-2024 ambulatory [facility] [place] Work Phone: Hematology/Oncology Comment on above: Malignant neoplasm o f prostate (HCC) (Primary Dx) Start: 02-02-2024 End: 02-02-2024 Patient encounter procedure Lynne Alarcon APRN.CLERK OPERATOR Work Phone: Hematology/Oncology Comment on above: Malignant neoplasm o f prostate (HCC) (Primary Dx) Start: 01-25-2024 End: 01-25-2024 ambulatory JAMAR FALL Facility:[facility] Start: 01-25-2024 Non-patient / Non-visit 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, unspecified vessel or lesion type; Type 2 diabetes mellitus without complication, without long-term current use of insulin (HCC); Lesion of skin of right ear; Abdominal discomfort Start: 11-02-2023 End: 11-02-2023 Patient encounter procedure Christo Howard APRN.CLERK OPERATOR Work Phone: [facility] Start: 10-30-2023 End: 10-30-2023 ambulatory JAMAR FALL Facility:[facility] Start: 10-30-2023 Non-patient / Non-visit [facility] Work Phone: Start: 10-20-2023 End: 10-20-2023 ambulatory Anthony SCRUGGS Facility:[facility] Start: 10-20-2023 End: 10-20-2023 Patient encounter procedure Anthony SCRUGGS [facility] Start: 10-09-2023 Non-patient / Non-visit [facility] Work Phone: Start: 09-28-2023 End: 09-28-2023 ambulatory PABLO CHRISTINA Not Available Start: 09-12-2023 End: 09-12-2023 Patient encounter procedure [facility] Work Phone: Start: 09-06-2023 Non-patient / Non-visit [facility] Work Phone: Start: 08-28-2023 Bamboo flowsheet Long myrick 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 Work Phone: [facility] Start: 08-28-2023 Bamboo flowsheet Long myrick 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 Work Phone: [facility] Start: 08-28-2023 End: 08-28-2023 Patient encounter procedure Long Boo 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 Work Phone: [facility] Comment on above: Neoplasm of unspecif ied behavior of bone, soft tissue, and skin; Actinic keratosis Start: 08-28-2023 End: 08-28-2023 ambulatory LONG BOO Not Available Start: 08-24-2023 End: 08-24-2023 ambulatory Jamar Fall Other [place] Other Start: 08-24-2023 Patient encounter procedure Jamar Fall [facility] Start: 08-04-2023 End: 08-04-2023 ambulatory Jamar Fall Other [place] Other Start: 08-04-2023 Telephone encounter Jamar EDMONDS [facility] Start: 08-03-2023 End: 08-03-2023 ambulatory MARCO A ESQUEDA Facility:[facility] Start: 07-27-2023 End: 07-27-2023 ambulatory JAMAR FALL Facility:[facility] Start: 06-22-2023 End: 06-22-2023 ambulatory AB [facility] Start: 06-05-2023 Telephone encounter Jamar EDMONDS [facility] Start: 06-05-2023 End: 06-05-2023 ambulatory EMELINA Craig [facility] [place] Other Start: 05-30-2023 End: 05-30-2023 ambulatory Jamar Fall Other [place] Other Start: 05-30-2023 Office outpatient vi sit 15 minutes Jamar Fall [facility] Start: 05-01-2023 End: 05-01-2023 ambulatory Jamar Fall Other [place] Other Start: 05-01-2023 Office outpatient vi sit 15 minutes Jamar Fall [facility] Start: 04-27-2023 Telephone encounter Jamar EDMONDS [facility] Start: 04-27-2023 End: 04-27-2023 ambulatory [facility] Krishnan Work Phone: Hematology/Oncology Comment on above: Malignant neoplasm o f prostate (HCC) (Primary Dx) Malignant neoplasm o f prostate (HCC) (Primary Dx); 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, unspecified vessel or lesion type; Essential hypertension; Type 2 diabetes mellitus without complication, without long-term current use of insulin (HCC) Start: 04-27-2023 End: 04-27-2023 Patient encounter procedure Christo Howard APRN.CNP Work Phone: [facility] Start: 04-25-2023 End: 04-25-2023 ambulatory Jamar Fall Other [place] Other Start: 04-25-2023 Telephone encounter Jamar EDMONDS [facility] Start: 04-18-2023 End: 04-18-2023 ambulatory Jamar Fall Other [place] Other Start: 04-18-2023 Telephone encounter Jamar EDMONDS [facility] Start: 04-17-2023 End: 04-17-2023 Patient encounter procedure Anthony SCRUGGS [facility] Start: 04-12-2023 End: 04-12-2023 ambulatory Jamar Fall Other [place] Other Start: 04-12-2023 Telephone encounter Jamar EDMONDS [facility] Start: 04-06-2023 End: 04-06-2023 ambulatory Jamar Fall Other [place] Other Start: 04-06-2023 Telephone encounter Jamar EDMONDS [facility] Start: 04-05-2023 End: 04-05-2023 ambulatory Jamar Fall Other [place] Other Start: 04-05-2023 Office outpatient vi sit 15 minutes Jamar Fall [facility] Start: 04-05-2023 Telephone encounter Jamar EDMONDS [facility] Start: 03-15-2023 End: 03-15-2023 ambulatory Jamar Fall Other [place] Other Start: 03-15-2023 Office outpatient vi sit 25 minutes Jamar Fall [facility] Start: 02-05-2023 End: 02-05-2023 ambulatory Jamar Fall Other [place] Other Start: 02-05-2023 Telephone encounter Jamar Fall [facility] Start: 02-02-2023 End: 02-02-2023 ambulatory Lab[facility] Ariella Work Phone: Hematology/Oncology Comment on above: Malignant neoplasm o f prostate (HCC) (Primary Dx) Start: 02-02-2023 End: 02-02-2023 Patient encounter procedure Marco A Esqueda MD Work Phone: [employer] 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 Start: 10-25-2022 End: 10-26-[address] ANTHONY SCRUGGS . Facility:[facility] Start: 09-16-2022 End: 09-16-2022 ambulatory Jamar Fall Other [place] Other Start: 09-16-2022 Office outpatient vi sit 15 minutes Jamar Fall [facility] Start: 09-09-2022 End: 09-09-2022 ambulatory Jamar Fall Other [place] Other Start: 09-09-2022 Patient encounter procedure Jamar Fall [facility] Start: 09-05-2022 End: 09-06-2022 ambulatory NONE LISTED REQUEST Facility:[facility] Start: 08-11-2022 End: 08-11-2022 ambulatory Lab[facility] Ariella Work Phone: Hematology/Oncology Comment on above: Malignant neoplasm o f prostate (HCC) (Primary Dx) Malignant neoplasm o f prostate (HCC) (Primary Dx); Bone metastasis (HCC); 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 Start: 07-21-2022 End: 07-22-[address] JAMAR FALL [facility] [employer] Other Start: 07-21-2022 Office outpatient vi sit 15 minutes Jamar Fall [facility] Start: 07-21-2022 Patient encounter procedure Jamar Fall [facility] Start: 07-21-2022 Telephone encounter Jamar Fall [facility] Start: 05-27-2022 End: 05-28-2022 ambulatory NONE LISTED REQUEST Facility:[facility] Start: 05-13-2022 End: 05-13-2022 Patient encounter procedure Anthony SCRUGGS [facility] Start: 05-12-2022 End: 05-12-2022 Patient encounter procedure Zach Khan MD Work Phone: Radiation Oncology Comment on above: Malignant neoplasm o f prostate (HCC) (Primary Dx) Start: 05-12-2022 End: 05-12-2022 ambulatory Lab[facility] Ariella Work Phone: Hematology/Oncology Comment on above: Malignant neoplasm o f prostate (HCC) (Primary Dx) Start: 05-05-2022 End: 05-06-[address] ANTHONY SCRUGGS . Facility:[facility] Start: 05-02-2022 Telephone encounter Christo Pravin goldberg APRN.CNP Work Phone: Hematology/Oncology Comment on above: Lab Orders Start: 04-27-2022 End: 04-28-2022 ambulatory LORA ENGLISH Facility:[facility] Start: 02-17-2022 End: 02-17-2022 ambulatory Marco A Esqueda MD Work Phone: Hematology/Oncology Comment on above: Malignant neoplasm o f prostate (HCC) (Primary Dx); Bone metastasis (HCC) Start: 02-17-2022 End: 02-17-2022 Patient encounter procedure Marco A Esqueda MD Work Phone: [employer] Start: 01-25-2022 End: 01-26-[address] DE LISTED REQUEST Facility:[facility] Start: 12-06-2021 Telephone encounter Clementine steinberg RN Work Phone: Hematology/Oncology Comment on above: Care Coordination (R efill Question) Start: 11-18-2021 End: 11-18-2021 ambulatory [facility] [place] Work Phone: Hematology/Oncology Comment on above: Malignant [...] 11-08-2021 End: 11-08-2021 Patient encounter procedure Anthony Jesus SCRUGGS [facility] Start: 11-05-2021 End: 11-06-[address] MARCO A ESQUEDA Facility: Start: 11-04-2021 ambulatory Clementine lee RN Work [...] 07-22-2021 Adult health examination Bam Fall Other [facility] [employer] Other Procedures Date Procedure Procedure Detail Performing Clinician Start: 08-28-2023 CRYOTHERAPY SKIN LESION Long Boo 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 Work Phone: Start: 08-28-2023 SKIN / NAIL BIOPSY Windy Boo 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 Work Phone: Start: 07-17-2023 Decompression of med anthony nerve Anthony SCRUGGS Start: 10-25-[address] JESE FALL Comment on above: Performed By: #### P SAD #### [facility] [address] [place], [place] [address] Dr. Bharati Aguiar Start: 05-05-[address] JESE FALL Comment on above: Performed By: #### P SAD ####[facility] [id number] [place], [place] [address]HgDr. Bharati Aguiar Start: 02-16-2022 Adult depression scr [...] for malign ant neoplasm of colon Jamar [facility] Other Start: 11-05-2014 Radical prostatectomy Ruperto gen SCRUGGS Start: 08-25-2014 Pre-surgery evaluation Jamar [facility] Other Start: 08-25-2014 Preoperative cardiov ascular examination Jamar [facility] Other Start: 08-17-2014 Coronary artery bypass graft Anthony SCRUGGS Start: 07-02-2014 Transrectal biopsy o f prostate using ultrasound guidance Anthony SCRUGGS Start: 01-09-2007 Urodynamic studies Pancho SCRUGGS Start: 03-27-2006 Cystoscopy Anthony CHAVEZ Start: 08-26-2005 Cystoscopy Anthony CHAVEZ Start: 09-02-2002 Cystoscopy Anthony CHAVEZ Appendectomy Anthony SCRUGGS Colonoscopy Anthony SCRUGGS Depression screening Reddy Fall Other Plan of Treatment Date Care Activity Detail Author Start: 04-25-2034 Urine microalbumin profile DTaP,Tdap,Td Vaccine (6 - Td or Tdap) [facility] Start: 05-03-2027 Diabetes Screening Diabetes Screening [facility] Start: 01-24-2027 Diabetes Screening Diabetes Screening [facility] Start: 10-29-2026 Diabetes Screening Diabetes Screening [facility] Start: 04-24-2026 Diabetes Screening Diabetes Screening [facility] Start: 02-02-2026 DIABETES SCREEN DIABETES SCREEN [facility] Start: 11-10-2025 DIABETES SCREEN DIABETES SCREEN [facility] Start: 08-11-2025 DIABETES SCREEN DIABETES SCREEN [facility] Start: 05-12-2025 DIABETES SCREEN DIABETES SCREEN [facility] Start: 02-17-2025 DIABETES SCREEN DIABETES SCREEN [facility] Start: 11-11-2024 DIABETES SCREEN DIABETES SCREEN [facility] Start: 08-08-2024 End: 08-08-2024 Follow-up encounter Hematology/Oncology Comment on above: 3 month lab follow up with xgeva inj Start: 08-01-2024 End: 08-01-2024 Patient encounter procedure 08/01/2024 9:00 AM EST Office Visit [facility] [address] [place] [address] [place] [address] 3 month labs [facility] Comment on above: 3 month labs Start: 05-09-2024 End: 05-09-2024 Follow-up encounter Hematology/Oncology Comment on above: 3 month lab follow up with xgeva inj Start: 05-07-2024 End: 05-07-2024 Patient encounter procedure 05/07/2024 9:00 AM EDT Office Visit [facility] [address] [place] [address] 3 month lab follow up with xgeva inj [facility] Comment on above: 3 month lab follow up with xgeva inj Start: 05-03-2024 End: 05-03-2024 Patient encounter procedure 05/03/2024 9:00 AM EDT Office Visit [facility] [address] [place] [address] 3 month lab follow up with xgeva inj [facility] Comment on above: 3 month lab follow up with xgeva inj Start: 04-29-2024 End: 07-29-2024 CBC W Auto Differential panel - Blood COMPLETE BLOOD COUNT AND DIFFERENTIAL Lab Routine Malignant neoplasm of prostate (HCC) Expected: 04/29/2024, Expires: 07/29/[address] [facility] Work Phone: Comment on above: Expected: 04/29/2024, Expires: Start: 04-29-2024 End: 07-29-2024 Comprehensive metabolic 2000 panel - Serum or Plasma COMPREHENSIVE METABOLIC PANEL Lab Routine Malignant neoplasm of prostate (HCC) Expected: 04/29/2024, Expires: 07/29/2024 [facility] Comment on above: Expected: 04/29/2024, Expires: Start: 04-29-2024 End: 07-29-2024 Prostate specific Ag [Mass/volume] in Serum or Plasma PROSTATE-SPECIFIC ANTIGEN DIAGNOSTIC Lab Routine Malignant neoplasm of prostate (HCC) Expected: 04/29/2024, Expires: 07/29/2024 [facility] Comment on above: Expected: 04/29/2024, Expires: Start: 03-17-2024 Covid-19 Vaccine ( season) Covid-19 Vaccine () [facility] Start: 03-17-2024 Influenza [facility] Start: 02-26-2024 End: 02-26-2024 Patient encounter procedure 02/26/2024 10:10 AM EDT Office Visit [facility] [address] [place] [id number] Long Boo APRN-CLERK OPERATOR [address] [place] [address] [facility] Start: 11-03-2023 End: 02-02-2024 CBC W Auto Differential panel - Blood COMPLETE BLOOD COUNT AND DIFFERENTIAL Lab Routine Malignant neoplasm of prostate (HCC) Essential hypertension 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, unspecified vessel or lesion type Type 2 diabetes mellitus without complication, without long-term current use of insulin (HCC) Lesion of skin of right ear Abdominal discomfort Expected: 11/03/2023, Expires: 02/02/[address] [facility] Work Phone: Comment on above: Expected: 11/03/2023, Expires: Start: 11-03-2023 End: 02-02-2024 Comprehensive metabolic 2000 panel - Serum or Plasma COMPREHENSIVE METABOLIC PANEL Lab Routine Malignant neoplasm of prostate (HCC) Essential hypertension 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, unspecified vessel or lesion type Type 2 diabetes mellitus without complication, without long-term current use of insulin (HCC) Lesion of skin of right ear Abdominal discomfort Expected: 11/03/2023, Expires: 02/02/[address] [facility] Work Phone: Comment on above: Expected: 11/03/2023, Expires: Start: 11-03-2023 End: 02-02-2024 Prostate specific Ag [Mass/volume] in Serum or Plasma PROSTATE-SPECIFIC ANTIGEN DIAGNOSTIC Lab Routine Malignant neoplasm of prostate (HCC) Essential hypertension 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, unspecified vessel or lesion type Type 2 diabetes mellitus without complication, without long-term current use of insulin (HCC) Lesion of skin of right ear Abdominal discomfort Expected: 11/03/2023, Expires: 02/02/[address] [facility] Work Phone: Comment on above: Expected: 11/03/2023, Expires: Start: 08-28-2023 End: 08-28-2023 Patient encounter procedure 08/28/2023 11:25 AM EST Office Visit [facility] [address] [place] [address] Long Boo, 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 [address] [place] [address] Arrived [facility] Comment on above: Arrived Start: 07-28-2023 End: 09-27-2023 CBC W Auto Differential panel - Blood CBC + DIFF Lab Routine Malignant neoplasm of prostate (HCC) 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, unspecified vessel or lesion type Essential hypertension Type 2 diabetes mellitus without complication, without long-term current use of insulin (HCC) Expected: 07/28/2023, Expires: 09/27/[address] [facility] Work Phone: Comment on above: Expected: 07/28/2023, Expires: Start: 07-28-2023 End: 09-27-2023 Comprehensive metabolic 2000 panel - Serum or Plasma COMP METABOLIC PANEL Lab Routine Malignant neoplasm of prostate (HCC) 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, unspecified vessel or lesion type Essential hypertension Type 2 diabetes mellitus without complication, without long-term current use of insulin (HCC) Expected: 07/28/2023, Expires: 09/27/[address] [facility] Work Phone: Comment on above: Expected: 07/28/2023, Expires: Start: 07-28-2023 End: 09-27-2023 Prostate specific Ag [Mass/volume] in Serum or Plasma PSA/PROSTSPECAG DIAG Lab Routine Malignant neoplasm of prostate (HCC) 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, unspecified vessel or lesion type Essential hypertension Type 2 diabetes mellitus without complication, without long-term current use of insulin (HCC) Expected: 07/28/2023, Expires: 09/27/[address] [facility] Work Phone: Comment on above: Expected: 07/28/2023, Expires: Start: 07-17-2023 Advance Directive Discussion Advance Directive Discussion [facility] Start: 07-17-2023 Behavioral Health Screening Behavioral Health Screening [facility] Start: 06-19-2023 Urine microalbumin profile [facility] Start: 05-03-2023 End: 07-03-2023 Basic metabolic 2000 panel - Serum or Plasma BASIC METABOLIC PNL Lab Routine Malignant neoplasm of prostate (HCC) Expected: 05/03/2023 (Approximate), Expires: 07/03/[address] [facility] Work Phone: Comment on above: Expected: 05/03/2023 (Approximate), Expi res: 07/03/2023 Start: 05-03-2023 End: 07-03-2023 CBC W Auto Differential panel - Blood CBC + DIFF Lab Routine Malignant neoplasm of prostate (HCC) Expected: 05/03/2023 (Approximate), Expires: 07/03/[address] [facility] Work Phone: Comment on above: Expected: 05/03/2023 (Approximate), Expi res: 07/03/2023 Start: 05-03-2023 End: 07-03-2023 Prostate specific Ag [Mass/volume] in Serum or Plasma PSA/PROSTSPECAG DIAG Lab Routine Malignant neoplasm of prostate (HCC) Expected: 05/03/2023 (Approximate), Expires: 07/03/[address] [facility] Work Phone: Comment on above: Expected: 05/03/2023 (Approximate), Expi res: 07/03/2023 Start: 05-03-2023 End: 07-03-2023 Testosterone [Mass/volume] in Serum or Plasma TESTOSTERONE TOTAL Lab Routine Malignant neoplasm of prostate (HCC) Expected: 05/03/2023 (Approximate), Expires: 07/03/[address] [facility] Work Phone: Comment on above: Expected: 05/03/2023 (Approximate), Expi res: 07/03/2023 Start: 03-17-2023 Covid-19 Vaccine () Covid-19 Vaccine () [facility] Start: 03-17-2023 Influenza vaccination [facility] Start: 02-16-2023 Adult depression screening assessment DEPRESSION SCREENING [facility] Start: 02-09-2023 End: 04-11-2023 CBC W Auto Differential panel - Blood CBC + DIFF Lab Routine Malignant neoplasm of prostate (HCC) 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, unspecified vessel or lesion type Essential hypertension Type 2 diabetes mellitus without complication, without long-term current use of insulin (HCC) Expected: 02/09/2023, Expires: 04/11/[address] [facility] Work Phone: Comment on above: Expected: 02/09/2023, Expires: Start: 02-09-2023 End: 04-11-2023 Comprehensive metabolic 2000 panel - Serum or Plasma COMP METABOLIC PANEL Lab Routine Malignant neoplasm of prostate (HCC) 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, unspecified vessel or lesion type Essential hypertension Type 2 diabetes mellitus without complication, without long-term current use of insulin (HCC) Expected: 02/09/2023, Expires: 04/11/[address] [facility] Work Phone: Comment on above: Expected: 02/09/2023, Expires: Start: 02-09-2023 End: 04-11-2023 Prostate specific Ag [Mass/volume] in Serum or Plasma PSA/PROSTSPECAG DIAG Lab Routine Malignant neoplasm of prostate (HCC) 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, unspecified vessel or lesion type Essential hypertension Type 2 diabetes mellitus without complication, without long-term current use of insulin (HCC) Expected: 02/09/2023, Expires: 04/11/[address] [facility] Work Phone: Comment on above: Expected: 02/09/2023, Expires: Start: 11-10-2022 Adult depression screening assessment DEPRESSION SCREENING [facility] Start: 08-22-2022 COVID-19 VACCINE (6 - Moderna series) COVID-19 VACCINE (6 - Moderna series) [facility] Start: 07-17-2022 ADVANCE DIRECTIVE DISCUSSION ADVANCE DIRECTIVE DISCUSSION [facility] Start: 07-17-2022 DEPRESSION ASSESSMENT DEPRESSION ASSESSMENT [facility] Start: 05-03-2022 Adult depression screening assessment DEPRESSION SCREENING [facility] Start: 05-03-2022 End: 07-03-2022 CBC W Auto Differential panel - Blood CBC + DIFF Lab Routine Malignant neoplasm of prostate (HCC) Expected: 05/03/2022, Expires: 07/03/[address] [facility] Work Phone: Comment on above: Expected: 05/03/2022, Expires: 2 Start: 05-03-2022 End: 07-03-2022 Comprehensive metabolic 2000 panel - Serum or Plasma COMP METABOLIC PANEL Lab Routine Malignant neoplasm of prostate (HCC) Expected: 05/03/2022, Expires: 07/03/[address] [facility] Work Phone: Comment on above: Expected: 05/03/2022, Expires: 2 Start: 05-03-2022 End: 07-03-2022 Prostate specific Ag [Mass/volume] in Serum or Plasma PSA/PROSTSPECAG DIAG Lab Routine Malignant neoplasm of prostate (HCC) Expected: 05/03/2022, Expires: 07/03/[address] [facility] Work Phone: Comment on above: Expected: 05/03/2022, Expires: 2 Start: 03-17-2022 Influenza vaccination [facility] Start: 11-02-2021 End: 01-02-2022 CBC W Auto Differential panel - Blood CBC + DIFF Lab Routine Malignant neoplasm of prostate (HCC) Expected: 11/02/2021, Expires: 01/02/[address] [facility] Work Phone: Comment on above: Expected: 11/02/2021, Expires: 2 Start: 11-02-2021 End: 01-02-2022 Comprehensive metabolic 2000 panel - Serum or Plasma COMP METABOLIC PANEL Lab Routine Malignant neoplasm of prostate (HCC) Expected: 11/02/2021, Expires: 01/02/[address] [facility] Work Phone: Comment on above: Expected: 11/02/2021, Expires: 2 Start: 09-14-2021 COVID-19 VACCINE (5 - Booster) COVID-19 VACCINE (5 - Booster) [facility] Start: 08-17-2021 COVID-19 VACCINE (4 - Booster for Moderna series) COVID-19 VACCINE (4 - Booster for Moderna series) [facility] Start: 07-17-2021 ADVANCE DIRECTIVE DISCUSSION ADVANCE DIRECTIVE DISCUSSION [facility] Start: 07-17-2021 DEPRESSION ASSESSMENT DEPRESSION ASSESSMENT [facility] Start: 02-22-2021 COVID-19 VACCINE (3 - Booster for Moderna series) COVID-19 VACCINE (3 - Booster for Moderna series) [facility] Start: 06-07-2015 PNEUMOVAX AGE 65 AND OVER WITH 5YR LOOKBACK (#1) PNEUMOVAX AGE 65 AND OVER WITH 5YR LOOKBACK (#1) [facility] Start: 06-20-2013 Urine microalbumin profile DTAP,TDAP,TD (1 - Tdap) [facility] Start: 08-22-2012 SHINGRIX VACCINE (2 of 3) SHINGRIX VACCINE (2 of 3) [facility] Start: 2006 RSV Vaccine (1 - 1-dose 60+ series) RSV Vaccine (1 - 1-dose 60+ series) [facility] Start: 02-14-1996 SHINGRIX VACCINE (1 of 2) SHINGRIX VACCINE (1 of 2) [facility] Start: 1991 COLOGUARD (FIT-DNA) COLOGUARD (FIT-DNA) [facility] Start: 1991 Colonoscopy COLONOSCOPY [facility] Start: 1991 COLORECTAL CANCER SCREENING COLORECTAL CANCER SCREENING [facility] Start: [address] COLONOGRAPHY [facility] Start: 1991 DIABETES SCREEN DIABETES SCREEN [facility] Start: 1991 FECAL OCCULT BLOOD FECAL OCCULT BLOOD [facility] Start: 1991 SIGMOIDOSCOPY SIGMOIDOSCOPY [facility] Start: 1981 LIPID SCREEN LIPID SCREEN [facility] Start: 02-14-1964 Anxiety Screening Anxiety Screening [facility] Start: 02-14-1964 Depression Screening Depression Screening [facility] Start: 02-14-1964 HEPATITIS C SCREENING HEPATITIS C SCREENING [facility] Start: 02-14-1964 Hepatitis C screening Hepatitis C Screening [facility] Dermatopathology exam Dermatopat hology exam Pathology and Cytology Timed Neoplasm of unspecified behavior of bone, soft tissue, and skin Release Upon Ordering for 1 Occurrences starting 08/28/2023 [facility] Work Phone: Comment on above: Release Upon Ordering for 1 Occurrences starting 08/28/2023 MR Cervical spine WO contrast [facility] US Extremity [facility] Immunizations Immunization Date Immunization Notes Care Provider Iris quinonez 03-26-2024 influenza, high dose seasonal, preservative-free [facility] 05-01-2023 influenza virus vaccine, unspecified formulation [facility] 05-01-2023 influenza, high dose seasonal, preservative-free Jamar Fall Other [facility] 04-28-2022 influenza nasal, unspecified formulation [facility] Work Phone: [facility] 04-28-2022 influenza, high-dose , quadrivalent vaccine (FLUZONE HIGH DOSE QUADRIVALENT) [facility] Work Phone: [facility] 04-28-2022 influenza, high dose seasonal, preservative-free Jamar Fall Other [facility] 04-28-2022 influenza virus vaccine, unspecified formulation [facility] Work Phone: [facility] 04-21-2022 COVID-19 booster vaccine, age 12+ yr, bivalent (MODERNA) [facility] Work Phone: [facility] Comment on above: Result Comment: 2023: [id number] 01-21-2022 COVID-19 Vaccine Moderna - Documentation Purposes Only Jamar Fall Other [facility] Comment on above: Result Comment: 2023: [id number] 05-17-2021 COVID-19 Vaccine Moderna - Documentation Purposes Only Jamar Fall Other [facility] Comment on above: Result Comment: 2023: [id number] 04-22-2021 influenza virus vaccine, split virus (incl. purified surface antigen) Jamar Juan David Other [facility] 04-22-2021 influenza virus vaccine, unspecified formulation [facility] 04-16-2021 influenza nasal, unspecified formulation Marco A Esqueda MD Work Phone: [facility] 04-16-2021 influenza virus vaccine, unspecified formulation Anthony SCRUGGS [facility] 09-22-2020 COVID-19 Vaccine Moderna - Documentation Purposes Only Jamar Juan David Other [facility] 08-26-2020 SARS-CoV-2 (COVID-19 ) Ad26 vaccine, recombinant Anthony SCRUGGS [facility] 08-24-2020 COVID-19 original vaccine, full dose, monovalent (MODERNA) [facility] Work Phone: [facility] 07-17-2020 SARS-CoV-2 (COVID-19 ) mRNA-1273 vaccine Anthony SCRUGGS [facility] Comment on above: Result Comment: pt d oes not know the dates but states that he is fully vaccinated 04-23-2020 influenza virus vaccine, split virus (incl. purified surface antigen) Jamar Juan David Other [facility] 04-23-2020 influenza virus vaccine, unspecified formulation [facility] 04-22-2019 influenza virus vaccine, split virus (incl. purified surface antigen) Jamar Fall Other [facility] 04-22-2019 influenza virus vaccine, unspecified formulation [facility] 04-16-2019 influenza nasal, unspecified formulation Marco A Esqueda MD Work Phone: [facility] 08-20-2018 zoster vaccine recombinant Marco A Esqueda MD Work Phone: [facility] 06-11-2018 zoster vaccine recombinant Marco A Esqueda MD Work Phone: [facility] 04-16-2018 influenza nasal, unspecified formulation Marco A Esqueda MD Work Phone: [facility] 03-27-2018 AS03 adjuvant [facility] Work Phone: [facility] 03-27-2018 influenza nasal, unspecified formulation [facility] [place] Work Phone: [facility] 03-27-2018 influenza virus vaccine, split virus (incl. purified surface antigen) Jamar Fall Other [place] Other 03-27-2018 influenza virus vaccine, unspecified formulation Anthony SCRUGGS [facility] 03-27-2018 Seasonal trivalent influenza vaccine, adjuvanted, preservative free Marco A Esqueda MD Work Phone: [facility] 06-12-2017 pneumococcal polysaccharide vaccine, 23 valent Marco A Esqueda MD Work Phone: [facility] 06-01-2017 pneumococcal polysaccharide vaccine, 23 valent Jamar Fall Other [facility] 06-01-2017 Prevnar 20 Jamar Fall Other [facility] 05-31-2017 influenza nasal, unspecified formulation [facility] [place] Work Phone: [facility] 05-31-2017 influenza virus vaccine, unspecified formulation Anthony SCRUGGS [facility] 05-31-2017 influenza, injectabl e, quadrivalent, preservative free Marco A Esqueda MD Work Phone: [facility] 04-03-2017 influenza nasal, unspecified formulation [facility] [place] Work Phone: [facility] 04-03-2017 influenza virus vaccine, split virus (incl. purified surface antigen) Jamar Fall Other [place] Other 04-03-2017 influenza virus vaccine, unspecified formulation Anthony SCRUGGS [facility] 04-03-2017 influenza, high dose seasonal, preservative-free Marco A Esqueda MD Work Phone: [facility] 03-23-2017 influenza nasal, unspecified formulation Marco A Esqueda MD Work Phone: [facility] 04-01-2016 influenza virus vaccine, split virus (incl. purified surface antigen) Jamar Fall Other [facility] 04-01-2016 influenza virus vaccine, unspecified formulation [facility] 03-31-2016 influenza nasal, unspecified formulation Marco A Esqueda MD Work Phone: [facility] 05-11-2015 influenza nasal, unspecified formulation Marco A Esqueda MD Work Phone: [facility] 05-11-2015 influenza, seasonal, injectable, preservative free [facility] [place] Work Phone: [facility] 05-11-2015 pneumococcal conjuga te vaccine, 13 valent Marco A Esqueda MD Work Phone: [facility] 04-29-2015 pneumococcal polysaccharide vaccine, 23 valent Marco A Esqueda MD Work Phone: [facility] 06-09-2014 influenza nasal, unspecified formulation [facility] [place] Work Phone: [facility] 06-09-2014 influenza, seasonal, injectable, preservative free Marco A Esqueda MD Work Phone: [facility] 06-19-2013 diphtheria, tetanus toxoids and acellular pertussis vaccine, unspecified formulation Marco A Esqueda MD Work Phone: [facility] 06-19-2013 tetanus and diphther ia toxoids, not adsorbed, for adult use Marco A Esqueda MD Work Phone: [facility] 05-23-2013 influenza nasal, unspecified formulation Marco A Esqueda MD Work Phone: [facility] 04-24-2013 tetanus and diphther ia toxoids, adsorbed, preservative free, for adult use (5 Lf of tetanus toxoid and 2 Lf of diphtheria toxoid) Jamar Fall Other [facility] 06-27-2012 zoster vaccine, live Marco A lake MD Work Phone: [facility] 06-11-2012 influenza nasal, unspecified formulation Marco A Esqueda MD Work Phone: [facility] 06-02-2011 influenza nasal, unspecified formulation Marco A Esqueda MD Work Phone: [facility] 06-23-2010 pneumococcal polysaccharide vaccine, 23 valent Jamar Fall Other [facility] 06-07-2010 pneumococcal polysaccharide vaccine, 23 valent Marco A Esqueda MD Work Phone: [facility] 06-07-2010 pneumococcal vaccine , unspecified formulation Marco A Esqueda MD Work Phone: [facility] 05-28-2010 influenza nasal, unspecified formulation Marco A Esqueda MD Work Phone: [facility] 01-14-2010 pneumococcal polysaccharide vaccine, 23 valent Jamar Fall Other [facility] 05-25-2009 influenza nasal, unspecified formulation Marco A Esqueda MD Work Phone: [facility] 06-09-2008 influenza nasal, unspecified formulation Marco A Esqueda MD Work Phone: [facility] 07-23-2003 influenza virus vaccine, whole virus Marco A Esqueda MD Work Phone: [facility] 01-14-2003 diphtheria, tetanus toxoids and acellular pertussis vaccine, unspecified formulation Jamar Fall Other [facility] 01-10-2003 TD(adult) unspecifie d formulation Marco A Esqueda MD Work Phone: [facility] 07-03-2002 influenza nasal, unspecified formulation Marco A Esqueda MD Work Phone: [facility] Payers Date Payer Category Payer Unknown MMO MMO MEDICARE SUPPLEMENT [id number] 2019-Present [phone] [address] [place] [address] Indemnity [id number] 2019 Unknown [id number] 2011 Medicare MEDICARE MEDICAR E A AND B [id number] 2011-Present [phone] [address] [address] [place] [address] Medicare [id number] 2011 Medicare [id number] 1959 Medicare [id number] 1959 Self-pay 1959 Unknown [id number] 1946 Unknown [id number] 1946 Unknown [id number] 1946 Unknown [id number] 1946 Unknown [id number] 1946 Unknown [id number] 1946 Unknown [id number] [id number] 1946 Unknown [id number] [id number] 1946 Unknown [id number] [id number] 1946 Unknown [id number] [id number] 1946 Unknown [id number] [id number] 1946 Unknown [id number] [id number] 1946 Unknown [id number] 1946 Unknown [id number] [id number] Unknown [id number] Unknown [id number] Unknown [id number] Social History Date Type Detail Facility Start: 11-08-2021 End: 08-11-2022 Tobacco smoking status NHIS Never smoked tobacco [facility] Start: 10-25-2021 End: 11-02-2023 Alcohol intake Current drinker of alcohol (finding) [facility] Start: 08-19-2014 History SDOH Alcohol Comment 1 day/wk [facility] Start: 1945 Sex Assigned At Not on file [facility] Start: 10-18-2021 End: 05-12-2022 Exposure to SARS-CoV-2 (event) Not sure [facility] Tobacco smoking status Never [facility] Start: 02-02-2023 End: 01-31-2024 Sex Assigned At Male [facility] Start: 1945 Sex Assigned At Male [facility] Start: 01-12-2018 End: 08-11-2022 Tobacco use and exposure Smokeless tobacco non-user [facility] Start: 02-02-2023 End: 01-31-2024 History of Social function [facility] Start: 02-11-2022 Gender identity Identifies as male gender (finding) [facility] Start: 02-11-2022 Sexual orientation Heterosexual (fin irish) [facility] How often to you hav e a [...] 09-06-2023 Tobacco smoking status NHIS Ex-smoker (finding) [facility] NEGATED: Highlighted rowStart: CARISSAF History of tobacco use Passive smoker [facility] Medical Equipment Procedure Code Equipment Code Equipment Origin al Text Equipment Identifier Dates Start: 10-26-2021 End: 05-12-2022 Comment on above: 1 Each once daily. T o test blood sugars 1 Each once daily. T o test blood sugar Blood Sugar Diagnostic (Contour Next Test Strips) strip Start: 10-10-2023 Lancets (Lancets,Thin) [facility] Start: 09-08-2023 Blood Sugar Diagnostic (Contour Next Test Strips) strip Start: 09-08-2023 End: 10-10-2023 Blood Sugar Diagnostic (Contour Next Test Strips) strip Start: 10-10-2023 Lancets (Lancets,Thin) [facility] Start: 09-08-2023 Blood Sugar Diagnostic (Contour Next Test Strips) strip Start: 09-08-2023 End: 10-10-2023 Functional Status Date Assessment Result Facility 04-19-2024 Functional Status N/A [facility] 10-20-2023 Functional Status N/A [facility] 04-17-2023 Functional Status N/A [facility] 05-13-2022 Functional Status N/A [facility] Clinical Notes 07-17-2014 to 05-08-2024 Telephone Encounter - Aida Luo RPh - 05/08/2024 8:53 AM EDTTelephone Encounter - Aida Luo RPh - 05/08/2024 8:53 AM EDMarco A Iverson MD - 05/08/2024 8:13 AM EDT Note Date & Type Note Facility 05-08-2024 Telephone encounter Note This prescription confirms Pablo' re-enrollment in the Xtandi free drug program for 2024. Thank you Josh Luo PharmD, BCOP [facility] Work Phone: 05-08-2024 Miscellaneous Notes This prescription confirms Pablo' re-enrollment in the Xtandi free drug program for 2024. Thank you Josh Luo PharmD, BCOP documented in this encounter [facility] 05-08-2024 Note HNO ID: [id number] Author: MARCO A ESQUEDA MD Service: ? Author Type: Physician Type: Progress Notes Filed: 05/10/2024 07:40 Note Text: PATIENT NAME: Pablo Felix DATE: 05/09/2024 PRIMARY CARE PHYSICIAN: Dr. Jamar Fall OTHER PHYSICIANS: Dr. Anthony Scruggs, Dr. Khan, [facility] Cardiology Portions of this encounter note have been copied from the note from 02/02/2024 and has been updated where appropriate, and reflect my current medical decision making from today. CC: This is a 79 year old male with metastatic prostate cancer, seen for scheduled follow-up. INTERIM HISTORY: Since the patient's last visit here his PSA increased slightly, and per Dr. Scruggs Lupron was resumed on 04/19/2024 with plans to continue every 6 months. He remains on Xtandi which he is tolerating well. On follow-up today he feels well. He does complain of intermittent diarrhea based on what he eats and when he takes his medications. No bone pain or other systemic symptoms. No new urinary symptoms. MEDICATIONS: Current Outpatient Medications Medication Sig enzalutamide (XTANDI) 40 mg tablet Take 4 tablets (160 mg) by mouth once daily. enzalutamide (XTANDI) 80 mg tablet TAKE 2 TABLETS (160 MG) BY MOUTH ONCE DAILY. ipratropium bromide (ATROVENT) 42 mcg (0.06 %) nasal spray 2 Sprays. Calcium Citrate-Vitamin D3 200 mg-6.25 mcg (250 unit) tab Take 2 tablets by mouth once daily. metoprolol succinate ER (TOPROL XL) 25 mg 24 hr tablet Take by mouth. Ndkrexlhegqdx-Txekqezt-Olrhsj (MULTIVITAMIN 50 PLUS) tab Take 1 tablet [...] Never Smokeless tobacco: Never Vaping Use Vaping status: Never Used Substance Use Topics Alcohol use: [...] paralysis, seizures or tremors. PHYSICAL EXAM: BP 141/62 Pulse 62 Temp 36.3 ?C (97.3 ?F) (Temporal) Resp 16 Wt 92.1 kg (203 lb 0.7 oz) SpO2 99% BMI 32.79 kg/m? ECOG PS: 0-1 General: Alert, oriented x 3. NAD. Non-toxic appearing. Well-nourished. HEENT: No scleral icterus. Heart: HRR s1s2 Lungs: Lungs CTA, no wheezing, rales, rhonchi or crackles ,non-labored breathing. Abdominal: Abd rounded but soft, NT, ND. Extremities: No edema or cyanosis. Skin: No rashes, bruising, or petechiae. Neuro: Non-focal exam without deficits. 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 Left base margin positive for neoplasm. Seminal vesicles with no diagnostic abnormality. 2 resected lymph nodes negative for neoplasm. LABS: Hemoglobin (g/dL) Date Value 05/03/2024 11.5 05/08/2018 12.8 Hematocrit (%) Date Value 05/03/2024 33.2 05/08/2018 36.8 WBC (k/uL) Date Value 05/03/2024 5.98 05/08/2018 5.63 Platelet Count (k/uL) Date Value 05/03/2024 192 05/08/2018 168 PSA 01/21/2019 <0.13 09/26/2019 0.09 06/17/2020 0.43 09/07/2020 0.84 05/06/2021 1.09 07/19/2021 1.58 10/25/2021 2.64 12/30/2021 0.14 02/17/2022 0.03 05/12/2022 0.12 08/11/2022 0.11 10/25/2022 0.1 (more content not included)... [facility] 05-08-2024 History of Present illness Narrative PATIENT NAME: Pablo Felix DATE: 05/09/2024 PRIMARY CARE PHYSICIAN: Dr. Jamar Fall OTHER PHYSICIANS: Dr. Anthony Scruggs, Dr. Khan, [facility] Cardiology Portions of this encounter note have been copied from the note from 02/02/2024 and has been updated where appropriate, and reflect my current medical decision making from today. CC: This is a 79 year old male with metastatic prostate cancer, seen for scheduled follow-up. INTERIM HISTORY: Since the patient's last visit here his PSA increased slightly, and per Dr. Scruggs Lupron was resumed on 04/19/2024 with plans to continue every 6 months. He remains on Xtandi which he is tolerating well. On follow-up today he feels well. He does complain of intermittent diarrhea based on what he eats and when he takes his medications. No bone pain or other systemic symptoms. No new urinary symptoms. MEDICATIONS: Current Outpatient Medications Medication Sig enzalutamide (XTANDI) 40 mg tablet Take 4 tablets (160 mg) by mouth once daily. enzalutamide (XTANDI) 80 mg tablet TAKE 2 TABLETS (160 MG) BY MOUTH ONCE DAILY. ipratropium bromide (ATROVENT) 42 mcg (0.06 %) nasal spray 2 Sprays. Calcium Citrate-Vitamin D3 200 mg-6.25 mcg (250 unit) tab Take 2 tablets by mouth once daily. metoprolol succinate ER (TOPROL XL) 25 mg 24 hr tablet Take by mouth. Rywsifqqcjsfs-Loiiwcvs-Qgruwq (MULTIVITAMIN 50 PLUS) tab Take 1 tablet [...] Never Smokeless tobacco: Never Vaping Use Vaping status: Never Used Substance Use Topics Alcohol use: [...] paralysis, seizures or tremors. PHYSICAL EXAM: BP 141/62 Pulse 62 Temp 36.3 C (97.3 F) (Temporal) Resp 16 Wt 92.1 kg (203 lb 0.7 oz) SpO2 99% BMI 32.79 kg/m ECOG PS: 0-1 General: Alert, oriented x 3. NAD. Non-toxic appearing. Well-nourished. HEENT: No scleral icterus. Heart: HRR s1s2 Lungs: Lungs CTA, no wheezing, rales, rhonchi or crackles ,non-labored breathing. Abdominal: Abd rounded but soft, NT, ND. Extremities: No edema or cyanosis. Skin: No rashes, bruising, or petechiae. Neuro: Non-focal exam without deficits. 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 Left base margin positive for neoplasm. Seminal vesicles with no diagnostic abnormality. 2 resected lymph nodes negative for neoplasm. LABS: Hemoglobin (g/dL) Date Value 05/03/2024 11.5 05/08/2018 12.8 Hematocrit (%) Date Value 05/03/2024 33.2 05/08/2018 36.8 WBC (k/uL) Date Value 05/03/2024 5.98 05/08/2018 5.63 Platelet Count (k/uL) Date Value 05/03/2024 192 05/08/2018 168 PSA 01/21/2019 <0.13 09/26/2019 0.09 06/17/2020 0.43 09/07/2020 0.84 05/06/2021 1.09 07/19/2021 1.58 10/25/2021 2.64 12/30/2021 0.14 02/17/2022 0.03 05/12/2022 0.12 08/11/2022 0.11 10/25/2022 0.13 02/02/2023 0.09 04/24/2023 0.12 07/27/2023 0.13 10/29/2023 0.16 01/25/2024 0.15 05/03/2024 0.18 RADIOLOGY/OTHER STUDIES: 11/05/2021 CT chest/abdomen/pelvis ([facility]) Several sclerotic lesions consistent with metastatic disease. No evidence of visceral organ involvement or lymphadenopathy. 11/05/2021 Bone scan ([facility]) Multifocal osseous metastasis including the left femur at the lesser trochanter, right pubis symphysis, multiple ribs bilaterally. 01/22/2018 Nuclear bone scan ([facility]) New focal increased activity left frontal bone, left T8 vertebral body. 01/22/2018 MRI pelvis ([facility]) 4.5 cm area of T2 signal in the prostate bed. 07/24/2014 CT abdomen/pelvis [place] Diffuse prostatic enlargement with indentation of the [...] metastases. He subsequently was started on Lupron 02/12/2018. A received external beam radiation therapy to the prostate bed 02/05/2018 - 03/30/2018. The patient's PSA once again became undetectable. However, by September 2019 the PSA increased to 0.09. Lupron every 6 months was continued. Despite continuation of Lupron the patient's PSA continued to increase. By October 2021 the PSA increased to 2.64. Bone scan 11/05/2021 revealed multiple bone metastases. CT scans showed no evidence of visceral organ involvement or suspicious lymphadenopathy. On 11/10/2021 the patient started Xtandi 160 mg daily. Antiresorptive therapy with Xgeva started 11/18/2021, with plans give every 3 months. The patient's PSA decreased by April 2023, and per urology Lupron was held. By April 2024 the PSA increased slightly, and Lupron resumed 04/19/2024 with plans to continue every 6 months. Currently the patient is clinically stable. He will continue as is with Xtandi 160 mg daily. He will continue with Xgeva every 3 months, injection due today. He will continue with Lupron every [address] Scruggs, next injection due October 2024. The patient will return in 3 months for follow-up, labs, and his next Xgeva. 2. 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). Stable on current medications. Continue per [...] CT directed pancreatic FNA obtained 08/22/2014 negative. Continue management per PCP with CT scan monitoring. Marco A Esqueda MD CC: Dr. Anthony Scruggs documented in this encounter [facility] 04-19-2024 Hospital Discharge instructions Patient Education 04/19/2024 08:45:03 Prostate Cancer Prostate Cancer The prostate is [...] the likelihood that the cancer will spread. Roca 6 or lower: This indicates that the cancer cells look similar to normal prostate cells (well differentiated). Lucrecia 7: This indicates that the cancer cells look somewhat similar to normal prostate cells (moderately differentiated). Roca 8, 9, or 10: This indicates that [...] stress of having cancer. General instructions Take uchi-zpo-uxxdhme and prescription medicines only as told by your health care provider. If you have to go to the hospital, notify your cancer specialist (oncologist). Keep all follow-up visits. This is important. Where to find more information [employer] Cancer Society: www.cancer.org Dutch Society of Clinical Oncology: www.cancer.net National Cancer [place]: www.cancer.gov Contact a health care provider if: [...] provider. Document Revised: 09/29/2021 Document Reviewed: 09/29/2021 Clerts! Patient Education 2023 [employer]. Follow Up Care 10/20/2023 09:58:12 With:KAEL JAMES, Anthony Lee, URL Address: [address] [place] [address]- When: Unknown [facility] 04-19-2024 Note Patient Education Oncology Prostate Cancer [...] to normal prostate cells (well differentiated). ? Roca 7: This indicates that the cancer cells look somewhat similar to normal prostate cells (moderately differentiated). ? Roca 8, 9, or 10: This indicates that [...] prostate gla (more content not included)... [facility] 04-01-2024 Telephone encounter Note Recd phone call from [facility] that they are unable to obtain the Xtandi 80mg tablets a this time and requested a script for the 40 mg dosing. Order pending Josh Luo PharmD, BCOP [facility] Work Phone: 04-01-2024 Miscellaneous Notes Recd phone call from [facility] that they are unable to obtain the Xtandi 80mg tablets a this time and requested a script for the 40 mg dosing. Order pending Josh Luo, Jose Enrique, BCOP documented in this encounter [facility] 03-29-2024 Note Coronary artery dise ase is stable, no concerning symptoms currently overall is doing well he is planning bilateral carpal tunnel surgery soon with Dr. Charlton. Continue GDMT-continue aspirin, Lipitor, metoprolol, and lisinopril continue risk factor modifications- heart healthy diet, regular exercise as tolerated and continue all medications. [facility] 03-29-2024 Note Hypertension is well -controlled at 127/51 Continue lisinopril/hydrochlorothiazide and metoprolol. Renal function normal [facility] 03-29-2024 Note Lipid abnormalities are stable continue Lipitor 40 mg daily lipid profile is well-controlled and liver function is normal [facility] 03-29-2024 Note Reviewed echocardiog tabby from July 08 moderate aortic stenosis noted and reviewed echo with patient and his No concerning symptoms at this time patient would like symptoms including palpitations, lightheaded dizziness, syncope, chest pain, worsening shortness of breath and he voiced understanding Monitor with echocardiogram [facility] 03-29-2024 Note RCRI=1 points Class II Risk 6.0 % 30-day risk of , [place], or cardiac arrest From a cardiac perspective pt may proceed with carpal tunnel surgery, he is a moderate risk for a low risk surgery. She may hold aspirin 5-7 days prior and resume post op. Please monitor hemodynamics carefully and prevent any major fluid shifts. [facility] 03-29-2024 Note Pt is here for surge ry clearance. Pt denies chest pain, sob, palpatations Review of Systems Musculoskeletal: Positive for arthritis, back pain, joint pain and myalgias. All other systems reviewed and are negative. [facility] 03-29-2024 Note [facility] CARDIOLOGY PROGR ESS NOTE [...] stenosis and regur (more content not included)... [facility] 02-02-2024 Instructions Lynne Alarcon APRN.CNP - 02/02/2024 [...] swallowing, increasing confusion documented in this encounter [facility] 02-02-2024 History of Present illness Narrative PATIENT NAME: Pablo Felix DATE: February 02, 2024 PRIMARY CARE PHYSICIAN: Dr. Jamar Fall OTHER PHYSICIANS: Dr. Anthony Scruggs, Dr. Khan, [facility] Cardiology This note was copied from prior [...] mg 24 hr tablet Take by mouth. 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 [...] 01/25/2024 0.15 RADIOLOGY/OTHER STUDIES: 11/05/2021 CT chest/abdomen/pelvis ([facility]) Several sclerotic lesions consistent with metastatic disease. No evidence of visceral organ involvement or lymphadenopathy. 11/05/2021 Bone scan ([facility]) Multifocal osseous metastasis including the left femur at the lesser trochanter, right pubis symphysis, multiple ribs bilaterally. 01/22/2018 Nuclear bone scan ([facility]) New focal increased activity left frontal bone, left T8 vertebral body. 01/22/2018 MRI pelvis ([facility]) 4.5 cm area of T2 signal in the prostate bed. 07/24/2014 CT abdomen/pelvis ([facility] Diffuse prostatic enlargement with indentation of the [...] consistent with stage IIIC (pT2b, N0, M0), Roca 5+4 equal 9. Postop the patient's PSA [...] suppressed at <12. Bone scan obtained at [facility] 11/05/2021 revealed multiple bone metastases. 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). Stable on current medications. Continue per [...] up. Lynne Alarcon APRN.CNP Hematology/Oncology [facility] [phone] CC: Dr. Anthony Scruggs documented in this encounter [facility] 02-02-2024 Note HNO ID: [id number] Author: LYNNE ALARCON APRN.ALEXA Service: ? Author Type: Nurse Practitioner Type: Progress Notes Filed: 02/02/2024 11:37 Note Text: PATIENT NAME: Pablo Felix DATE: February 02, 2024 PRIMARY CARE PHYSICIAN: Dr. Jamar Fall OTHER PHYSICIANS: Dr. Anthony Scruggs, Dr. Khan, [facility] Cardiology This note was copied from prior [...] mg 24 hr tablet Take by mouth. 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 [...] 0.43 09/07/2020 0.84 (more content not included)... [facility] 11-02-2023 Note HNO ID: [id number] Author: CHRISTO HOWARD APRN.CLERK OPERATOR Service: ? Author Type: Nurse Practitioner Type: Progress Notes Filed: 11/03/2023 11:11 Note Text: PATIENT NAME: Pablo Felix DATE: 11/02/2023 PRIMARY CARE PHYSICIAN: Dr. Jamar Fall OTHER PHYSICIANS: Dr. Anthony Scruggs, Dr. Khan, [facility] Cardiology Portions of this encounter note [...] mg 24 hr tablet Take by mouth. 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 [...] <0.13 09/26/2019 0.09 (more content not included)... [facility] 11-02-2023 History of Present illness Narrative PATIENT NAME: Pablo Felix DATE: 11/02/2023 PRIMARY CARE PHYSICIAN: Dr. Jamar Fall OTHER PHYSICIANS: Dr. Anthony Scruggs, Dr. Khan, [facility] Cardiology Portions of this encounter note [...] mg 24 hr tablet Take by mouth. 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 [...] 10/29/2023 0.16 RADIOLOGY/OTHER STUDIES: 11/05/2021 CT chest/abdomen/pelvis ([facility]) Several sclerotic lesions consistent with metastatic disease. No evidence of visceral organ involvement or lymphadenopathy. 11/05/2021 Bone scan ([facility]) Multifocal osseous metastasis including the left femur at the lesser trochanter, right pubis symphysis, multiple ribs bilaterally. 01/22/2018 Nuclear bone scan ([facility]) New focal increased activity left frontal bone, left T8 vertebral body. 01/22/2018 MRI pelvis ([facility]) 4.5 cm area of T2 signal in the prostate bed. 07/24/2014 CT abdomen/pelvis ([facility] Diffuse prostatic enlargement with indentation of the [...] consistent with stage IIIC (pT2b, N0, M0), Roca 5+4 equal 9. Postop the patient's PSA [...] suppressed at <12. Bone scan obtained at [facility] 11/05/2021 revealed multiple bone metastases. 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). Stable on current medications. Continue per [...] would reconsider referral to GI. Christo Howard APRN.ALEXA CC: Dr. Anthony Scruggs I spent a total of 30 minutes on the date of the service which included preparing to see the patient, mlih-tn-xeir patient care, completing clinical documentation, obtaining and/or reviewing separately obtained history, performing a medically appropriate examination, counseling and educating the patient/family/caregiver, ordering medications, tests, or procedures, independently interpreting results (not separately reported), and communicating results to the patient/family/caregiver. documented in this encounter [facility] 10-20-2023 Hospital Discharge instructions Patient Education 10/20/2023 [...] under a microscope. This is called the Roca score and the total score can range from 6 10, indicating how likely it is that the cancer will spread (metastasize) to other parts of the body. The higher the score, the greater the likelihood that the cancer will spread. Lucrecia 6 or lower: This indicates that the cancer cells look similar to normal prostate cells (well differentiated). Lucrecia 7: This indicates that the cancer cells look somewhat similar to normal prostate cells (moderately differentiated). Roca 8, 9, or 10: This indicates that [...] stress of having cancer. General instructions Take ghnl-mbn-iksstbn and prescription medicines only as told by your health care provider. If you have to go to the hospital, notify your cancer specialist (oncologist). Keep all follow-up visits. This is important. Where to find more information [employer] Cancer Society: www.cancer.org Dutch Society of Clinical Oncology: www.cancer.net National Cancer [place]: www.cancer.gov Contact a health care provider if: [...] Document Reviewed: 09/29/2021 Elsevier Patient Education 2022 [employer]. Follow Up Care 04/17/2023 09:25:02 With:KAEL JAMES, Anthony Lee, URL Address: [address] [place], [place] [id number]- When: Unknown [facility] 08-28-2023 History of Present illness Narrative Images [...] limited to risks of scarring, darker or tetryl screen operator pigmentary changes, recurrence, incomplete removal and infection. [...] results, 6 months documented in this encounter [facility] 08-24-2023 Evaluation note Encounter Date [...] use, the patient reduces the risk for IN, CVA, HTN, cardiac dysrhythmias and sudden cardiac [...] retention cyst and frontal sinus mass benign [facility] Other 01-19-2024 Evaluation note* Encounter Date Diagnosis Assessment Notes Treatment Notes Treatment Clinical Notes Jul, Pancreatic mass (ICD-10 - K86.89) MRCP: 4cm mass - 2022 - previously completed EUS bx at [facility] - stable in size from 2021 [facility] Other 01-18-2024 NoteHNO ID: [id number] Author: MARCO A ESQUEDA MD Service: ? Author Type: Physician Type: Progress Notes Filed: 08/04/2023 06:33 Note Text: PATIENT NAME: Pablo Felix DATE: 08/03/2023 PRIMARY CARE PHYSICIAN: Dr. Jamar Fall OTHER PHYSICIANS: Dr. Anthony Scruggs, Dr. Khan, [facility] Cardiology Portions of this encounter note [...] mg 24 hr tablet Take by mouth. 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 Left base margin positive for neoplasm. Seminal vesicles with no diagnostic abnormality. 2 resected lymph nodes negative for neoplasm. LABS: Hemoglobin (g/dL) Date Value 07/27/2023 11.8 05/08/2018 12.8 Hematocrit (%) Date Value 07/27/2023 34.8 05/08/2018 36.8 WBC (k/uL) Date Value 07/27/2023 6.43 05/08/2018 5.63 Platele (more content not included)...[facility]12-07-2023 Note [facility] Cardiology Clinic Note Chief Complaint: Patient [...] should problems arise Bridger Mulligan MD, MPH, [facility], [facility], [facility] Interventional Cardiology Pager Email: [email or web address]11-14-2023 Evaluation note* Encounter Date Diagnosis Assessment [...] ENT since scheduling appt for sinus mass [facility] Other 10-16-2023 Evaluation note* Encounter Date Diagnosis [...] malignant neoplasm of bone (ICD-10 - C79.51) [facility] Other 10-12-2023 History of Present illness Narrative* Christo Howard, ROCHELLE.CLERK OPERATOR - 04/27/2023 10:00 AM EDT PATIENT NAME: Pablo Felix DATE: 04/27/2023 PRIMARY CARE PHYSICIAN: Dr. Jamar Fall OTHER PHYSICIANS: Dr. Anthony Scruggs, Dr. Khan, [facility] Cardiology Portions of this encounter note [...] mg 24 hr tablet Take by mouth. 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 [...] 04/24/2023 0.12 RADIOLOGY/OTHER STUDIES: 11/05/2021 CT chest/abdomen/pelvis ([facility]) Several sclerotic lesions consistent with metastatic disease. No evidence of visceral organ involvement or lymphadenopathy. 11/05/2021 Bone scan ([facility]) Multifocal osseous metastasis including the left femur at the lesser trochanter, right pubis symphysis, multiple ribs bilaterally. 01/22/2018 Nuclear bone scan ([facility]) New focal increased activity left frontal bone, left T8 vertebral body. 01/22/2018 MRI pelvis ([facility]) 4.5 cm area of T2 signal in the prostate bed. 07/24/2014 CT abdomen/pelvis ([facility] Diffuse prostatic enlargement with indentation of the bladder base. Incidental 2.5 x 1 cm exophytic hypodense lesion adjacent to the pancreatic body. ASSESSMENT/PLAN: 1. Metastatic prostate cancer (HCC) - ICD9: 185, ICD10: C61 (primary diagnosis) The patient was diagnosed with early-stage high-grade prostate cancer in June 2014 (TRUS sinnex8507/02/2014). He underwent a radical prostatectomy on 11/05/2014. [...] suppressed at <12. Bone scan obtained at [facility] 11/05/2021 revealed multiple bone metastases. 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). Stable on current medications. Continue per [...] monitor with repeat CT scan. Christo Howard APRN.CLERK OPERATOR CC: Dr. Anthony Scruggs I spent a total of 30 minutes on the date of the service which included preparing to see the patient, zsie-tw-gvxl patient care, completing clinical documentation, obtaining and/or reviewing separately obtained history, performing a medically appropriate examination, counseling and educating the pat ient/family/caregiver, ordering medications, tests, or procedures, independently interpreting results (not separately reported), and communicating results to the patient/family/caregiver. [facility]* Encounter Date Diagnosis Assessment Notes Treatment Notes Treatment Clinical Notes Apr, Pancreatic mass (ICD-10 - K86.89) [facility] Other [id number] Hospital Discharge instructions Patient Education 04/17/2023 09:18:19 [...] under a microscope. This is called the Roca score and the total score can range [...] similar to normal prostate cells (moderately differentiated). Roca 8, 9, or 10: This indicates that [...] stress of having cancer. General instructions Take ylun-quo-knizbbr and prescription medicines only as told by your health care provider. If you have to go to the hospital, notify your cancer specialist (oncologist). Keep all follow-up visits. This is important. Where to find more information [employer] Cancer Society: www.cancer.org Dutch Society of Clinical Oncology: www.cancer.net National Cancer [place]: www.cancer.gov Contact a health care provider if: [...] provider. Document Revised: 09/29/2021 Document Reviewed: 09/29/2021 Clerts! Patient Education 2022 [employer]. Follow Up Care 10/28/2022 08:37:57 With:KAEL JAMES, Anthony Lee, URL Address: [facility] [address] , [place] [address] [phone] When: Unknown Comments:6 mos w/ PSA (and possible Lupron) [facility] 09-27-2023 Evaluation note* Encounter Date Diagnosis Assessment Notes Treatment Notes Treatment Clinical Notes Mar, Pancreatic mass (ICD-10 - K86.89) [facility] Other 09-20-2023 Evaluation note* Encounter Date Diagnosis Assessment Notes Treatment Notes Treatment Clinical Notes Mar, Right upper quadrant abdominal pain (ICD-10 - R10.11) Diet instructions Lab to r/o acute infection, cholecystitis, pancreatitis GBUS vs CT abd based on results BLand, low fat diet Mar, Nausea (ICD-10 - R11.0) Ida , small/frequent feedings. Pepcid, Prilosec, Tums as [...] Microalbumin, Dilated eye exam and Foot exam [facility] Other 08-30-2023 Evaluation note* Encounter Date Diagnosis [...] use, the patient reduces the risk for IN, CVA, HTN, cardiac dysrhythmias and sudden cardiac [...] exercise for 30 minutes, 3-5 times weekly. [facility] Other 07-23-2023 Evaluation note* Encounter Date Diagnosis Assessment Notes Treatment Notes Treatment Clinical Notes Jan, Left bundle-branch block, unspecified (ICD-10 - I44.7) [facility] Other 07-20-2023 History of Present illness Narrative* Marco A Esqueda MD - 02/02/2023 7:38 AM EDT PATIENT NAME: Pablo Felix DATE: 02/02/2023 PRIMARY CARE PHYSICIAN: Dr. Jamar Fall OTHER PHYSICIANS: Dr. Anthony Scruggs, Dr. Khan, [facility] Cardiology Portions of this encounter note [...] mg 24 hr tablet Take by mouth. 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 [...] 10/25/2022 0.13 RADIOLOGY/OTHER STUDIES: 11/05/2021 CT chest/abdomen/pelvis ([facility]) Several sclerotic lesions consistent with metastatic disease. No evidence of visceral organ involvement or lymphadenopathy. 11/05/2021 Bone scan ([facility]) Multifocal osseous metastasis including the left femur at the lesser trochanter, right pubis symphysis, multiple ribs bilaterally. 01/22/2018 Nuclear bone scan ([facility]) New focal increased activity left frontal bone, left T8 vertebral body. 01/22/2018 MRI pelvis ([facility]) 4.5 cm area of T2 signal in the prostate bed. 07/24/2014 CT abdomen/pelvis ([facility] Diffuse prostatic enlargement with indentation of the bladder base. Incidental 2.5 x 1 cm exophytic hypodense lesion adjacent to the pancreatic body. ASSESSMENT/PLAN: 1. Metastatic prostate cancer (HCC) - ICD9: 185, ICD10: C61 (primary diagnosis) The patient was diagnosed with early-stage high-grade prostate cancer in June 2014 (TRUS [id number]/02/2014). He underwent a radical prostatectomy on 11/05/2014. [...] suppressed at <12. Bone scan obtained at [facility] 11/05/2021 revealed multiple bone metastases. 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). Stable on current medications. Continue per [...] CC: Dr. Anthony Scruggs documented in this encounterSamaritan [facility] Health Center04-27-2023 History of Present illness Narrative* Christo Howard APRN.CLERK OPERATOR - 11/10/2022 10:00 AM EDT PATIENT NAME: Pablo Felix DATE: 11/10/2022 PRIMARY CARE PHYSICIAN: Dr. Jamar Fall OTHER PHYSICIANS: Dr. Anthony Scruggs, Dr. Khan, [facility] Cardiology Portions of this encounter note [...] mg 24 hr tablet Take by mouth. 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 [...] PSA 0.13 RADIOLOGY/OTHER STUDIES: 11/05/2021 CT chest/abdomen/pelvis ([facility]) Several sclerotic lesions consistent with metastatic disease. No evidence of visceral organ involvement or lymphadenopathy. 11/05/2021 Bone scan ([facility]) Multifocal osseous metastasis including the left femur at the lesser trochanter, right pubis symphysis, multiple ribs bilaterally. 01/22/2018 Nuclear bone scan ([facility]) New focal increased activity left frontal bone, left T8 vertebral body. 01/22/2018 MRI pelvis ([facility]) 4.5 cm area of T2 signal in the prostate bed. 07/24/2014 CT abdomen/pelvis ([facility] Diffuse prostatic enlargement with indentation of the bladder base. Incidental 2.5 x 1 cm exophytic hypodense lesion adjacent to the pancreatic body. ASSESSMENT/PLAN: 1. Metastatic prostate cancer (HCC) - ICD9: 185, ICD10: C61 (primary diagnosis) The patient was diagnosed with early-stage high-grade prostate cancer in June 2014 (TRUS [id number]/02/2014). He underwent a radical prostatectomy on 11/05/2014. Pathology consistent with stage IIIC (pT2b, N0, M0), Roca 5+4 equal 9. Postop the patient's PSA [...] suppressed at <12. Bone scan obtained at [facility] 11/05/2021 revealed multiple bone metastases. 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). Stable on current medications. Continue per [...] which included preparing to see the patient, tlmt-dl-sgdy patient care, completing clinical documentation, obtaining and/or reviewing separately obtained history, performing a medically appropriate examination, counseling and educating the pat ient/family/caregiver, ordering medications, tests, or procedures, independently interpreting results (not separately reported), and communicating results to the patient/family/caregiver. documented in this encounterSamaritan North Health Center03-03-2023 Evaluation note* Encounter Date Diagnosis Assessment Notes [...] injection w/ Kenalog, may increase BS slightly [place] Other 02-24-2023 Evaluation note* Encounter Date Diagnosis [...] I35.0) 04/2022 Echo: ROGER 1.13, Velocity 324, /23 Continue to control BP. No CP, tachycardia [...] use, the patient reduces the risk for IN, CVA, HTN, cardiac dysrhythmias and sudden cardiac [...] Lupron along w/ additional oral chemotherapy from [facility] On[facility]. Also receiving Boniva Aug, Other [...] reviewed and amended by provider signed below. [place] Other 01-26-2023 History of Present illness Narrative* Marco A Esqueda MD - 08/11/2022 7:42 AM EST PATIENT NAME: Pablo Felix DATE: 08/11/2022 PRIMARY CARE PHYSICIAN: Dr. Jamar Fall OTHER PHYSICIANS: Dr. Anthony Scruggs, Dr. Khan, [facility] Cardiology Portions of this encounter note [...] mg 24 hr tablet Take by mouth. 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 [...] 08/11/2022 PSA RADIOLOGY/OTHER STUDIES: 11/05/2021 CT chest/abdomen/pelvis ([facility]) Several sclerotic lesions consistent with metastatic disease. No evidence of visceral organ involvement or lymphadenopathy. 11/05/2021 Bone scan ([facility]) Multifocal osseous metastasis including the left femur at the lesser trochanter, right pubis symphysis, multiple ribs bilaterally. 01/22/2018 Nuclear bone scan ([facility]) New focal increased activity left frontal bone, left T8 vertebral body. 01/22/2018 MRI pelvis ([facility]) 4.5 cm area of T2 signal in the prostate bed. 07/24/2014 CT abdomen/pelvis ([facility]) Diffuse prostatic enlargement with indentation of the bladder base. Incidental 2.5 x 1 cm exophytic hypodense lesion adjacent to the pancreatic body. ASSESSMENT/PLAN: 1. Metastatic prostate cancer (HCC) - ICD9: 185, ICD10: C61 (primary diagnosis) The patient was diagnosed with early-stage high-grade prostate cancer in June 2014 (TRUS [id number]/02/2014). He underwent a radical prostatectomy on 11/05/2014. Pathology consistent with stage IIIC (pT2b, N0, M0), Roca 5+4 equal 9. Postop the patient's PSA [...] suppressed at <12. Bone scan obtained at [facility] 11/05/2021 revealed multiple bone metastases. 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). Stable on current medications. Continue per [...] CC: Dr. Anthony Scruggs documented in this encounterSamaritan [facility] Health Center01-05-2023 NotePROCEDURE: XR SHOULDER LT 2V or > [...] Electronically authenticated by: CYNTHIA TORRES Date: 2022-07-21 15:46[facility]01-05-2023 Evaluation note* Encounter Date Diagnosis Assessment Notes Treatment Notes Treatment Clinical Notes Jul, Cervical spondylosis with radiculopathy (ICD-10 - M47.22) ROM exercises, heat/ice and Tylenol 1000mg tid. Initiated Tramadol w/ caution, no driving, may cause sedation. Jul, Acute pain of left shoulder (ICD-10 - M25.512) ROM exercises, Tylenol and Tramadol as needed. Jul, Annual physical exam (ICD-10 - Z00.00) [place] Other 10-28-2022 Hospital Discharge instructions Patient Education [...] who: Are older than age 65. Are -Dutch. Are obese. Have a family history of [...] cells. Follow these instructions at home: Take znrc-aem-amtetnn and prescription medicines only as told by [...] 07/03/2006 Document Revised: 06/15/2018 Document Reviewed: 03/13/2017 Clerts! Patient Education 2020 [employer] Follow Up Care 11/08/2021 14:14:20 With:KAEL JAMES, Anthony Lee, URL Address: [address] [place], [place] [id number]- When: Unknown [facility] 10-27-2022 Nurse Note* Sheela Toney - 05/12/2022 10:43 AM EDT AUA=2 documented in this encounterSamaritan North Health Center10-27-2022 History of Present illness Narrative* G Franky Khan MD - 05/12/2022 10:41 AM EDT Radiation Oncology - Follow Up Note PATIENT NAME: Pablo Felix PATIENT DIAGNOSIS: Prostate adenocarcinoma, initial clinical stage II, initial PSA 1.07, biopsy Lucrecia score 9(4,5), s/p prostatectomy for 11/05/14 pathologic stage IIIC [id number], Roca 9 (5, 4) now with rising PSA [...] Each once daily. To test blood sugar Zfhpzljuyhmzx-Hnmtbipx-Jyhbph (MULTIVITAMIN 50 PLUS) tab Take 1 tablet [...] s/p prostatectomy for 11/05/14 pathologic stage IIIC [id number], Roca 9 (5, 4) withrising PSA, subsequently status [...] Zach Khan MD cc: Jamar Fall MD ([facility]) Portions of the above note extracted and edited from previous visit as well as active information included in the EMR. documented in this encounterSamaritan North Health Center10-17-2022 Miscellaneous Notes* Telephone Encounter - Sheela Toney - 05/02/2022 10:48 AM EDT Patient coming in on 05/12/22 for follow up with labs. Please add lab orders. Thanks, Sheela RUSTY Toney documented in this encounterSamaritan North Health Center08-04-2022 History of Present illness Narrative* Marco A Esqueda MD - 02/17/2022 7:51 AM EDT PATIENT NAME: Pablo Felix DATE: 02/17/2022 PRIMARY CARE PHYSICIAN: Jamar Fall DO OTHER PHYSICIANS: Dr. Anthony Scruggs, Dr. Khan, [facility] Cardiology Portions of this encounter note [...] Each once daily. To test blood sugar Jhrubrowcuffq-Niuspuio-Ldtonb (MULTIVITAMIN 50 PLUS) tab Take 1 tablet [...] Radical retropubic prostatectomy and bilateral pelvic lymphadenectomy ([facility]) Poorly differentiated prostatic adenocarcinoma of left prostate. [...] PSA 0.14 RADIOLOGY/OTHER STUDIES: 11/05/2021 CT chest/abdomen/pelvis ([facility]) Several sclerotic lesions consistent with metastatic disease. No evidence of visceral organ involvement or lymphadenopathy. 11/05/2021 Bone scan ([facility]) Multifocal osseous metastasis including the left femur at the lesser trochanter, right pubis symphysis, multiple ribs bilaterally. 01/22/2018 Nuclear bone scan ([facility]) New focal increased activity left frontal bone, left T8 vertebral body. 01/22/2018 MRI pelvis ([facility]) 4.5 cm area of T2 signal in the prostate bed. 07/24/2014 CT abdomen/pelvis ([facility] Diffuse prostatic enlargement with indentation of the bladder base. Incidental 2.5 x 1 cm exophytic hypodense lesion adjacent to the pancreatic body. ASSESSMENT/PLAN: 1. Metastatic prostate cancer (HCC) - ICD9: 185, ICD10: C61 (primary diagnosis) The patient was diagnosed with early-stage high-grade prostate cancer in June 2014 (TRUS [id number]/02/2014). He underwent a radical prostatectomy on 11/05/2014. [...] at <12. Staging scans were obtained at [facility] on 11/05/2021. 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). Stable on current medications. Continue per [...] CC: Dr. Anthony Scruggs documented in this encounterSamaritan North Health Center05-23-2022 Miscellaneous Notes* Telephone Encounter - Clementine Aguilar [...] that he has the phone number to [facility]. No additional questionsnoted. Clementine Aguilar RN documented in this encounterSamaritan North Health Center04-28-2022 History of Present illness Narrative* Marco A Esqueda MD - 11/11/2021 7:42 AM EDT PATIENT NAME: Pablo Felix DATE: 11/11/2021 PRIMARY CARE PHYSICIAN: Jamar Fall DO OTHER PHYSICIANS: Dr. Anthony Scruggs, Dr. Khan, [facility] Cardiology Portions of this encounter note have been copied from my note from 10/28/2021 and has been updated where appropriate, and reflect my current medical decision making from today. CC: This is a 76 year old male with recently diagnosed metastatic prostate cancer, seen for scheduled follow-up. INTERIM HISTORY: Since the patient's initial visit here he underwent staging scans at [facility] on 11/05/2021. Bone scan revealed multiple areas [...] Each once daily. To test blood sugar Ulzsbbrkmamts-Vuuonowr-Aesqeq (MULTIVITAMIN 50 PLUS) tab Take 1 tablet [...] Radical retropubic prostatectomy and bilateral pelvic lymphadenectomy ([facility]) Poorly differentiated prostatic adenocarcinoma of left prostate. [...] PSA 2.64 RADIOLOGY/OTHER STUDIES: 11/05/2021 CT chest/abdomen/pelvis ([facility]) Several sclerotic lesions consistent with metastatic disease. No evidence of visceral organ involvement or lymphadenopathy. 11/05/2021 Bone scan ([facility]) Multifocal osseous metastasis including the left femur at the lesser trochanter, right pubis symphysis, multiple ribs bilaterally. 01/22/2018 Nuclear bone scan ([facility]) New focal increased activity left frontal bone, left T8 vertebral body. 01/22/2018 MRI pelvis ([facility]) 4.5 cm area of T2 signal in the prostate bed. 07/24/2014 CT abdomen/pelvis ([facility] Diffuse prostatic enlargement with indentation of the bladder base. Incidental 2.5 x 1 cm exophytic hypodense lesion adjacent to the pancreatic body. ASSESSMENT/PLAN: 1. Metastatic prostate cancer (HCC) - ICD9: 185, ICD10: C61 (primary diagnosis) The patient was diagnosed with early-stage high-grade prostate cancer in June 2014 (TRUS [id number]/02/2014). He underwent a radical prostatectomy on 11/05/2014. Pathology consistent with stage IIIC (pT2b, N0, M0), Roca 5+4 equal 9. Postop the patient's PSA [...] at <12. Staging scans were obtained at [facility] on 11/05/2021. 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). Stable on current medications. Continue per [...] CC: Dr. Anthony Scruggs documented in this encounterSamaritan North Health Center04-27-2022 Miscellaneous Notes* Telephone Encounter - Clementine Aguilar RN - 11/10/2021 3:03 PM EDT Pt reports his Enzalutamide was delivered. Will start this evening. Clementine Aguilar RN documented in this encounterSamaritan North Health Center04-26-2022 Miscellaneous Notes* Telephone Encounter - Clementine Aguilar RN - 11/09/2021 2:31 PM EDT Per pt, his Enzalutamide is scheduled to arrive tomorrow morning. Patient started/will start taking Enzalutamide on 11/10/21. Clementine Aguilar RN documented in this encounterSamaritan North Health Center04-25-2022 Hospital Discharge instructions Patient Education 11/08/2021 14:10:09 [...] who: Are older than age 65. Are -[place]. Are obese. Have a family history of [...] cells. Follow these instructions at home: Take urqs-muz-czrpfih and prescription medicines only as told by [...] 07/03/2006 Document Revised: 06/15/2018 Document Reviewed: 03/13/2017 Clerts! Patient Education 2020 [employer] Inc. Follow Up Care 08/23/2021 13:26:07 With:KAEL JAMES, Anthony Lee, URL Address: [facility] [address] , [place] [address] [phone] When:05/10/2022 [facility] 04-21-2022 Miscellaneous Notes* Telephone Encounter - Clementine Aguilar RN - 11/04/2021 2:53 PM EDT Pt would like to get the 4th Covid vaccine when it's due. Dr Esqueda notified and gives the ok to proceed when due. Pt notified and verbalizes understanding. Clementine Aguilar RN documented in this encounterSamaritan North Health Center04-21-2022 History of Present illness Narrative* Clementine Aguilar [...] Information handout: Enzalutamide, Specialty Pharmacy Information : [facility] phone numbers: Yes [...] minutes Clementine Aguilar RN * Aida Luo, [facility] - 11/04/2021 2:49 PM EDT Images from the original note were not included. [facility] Department of Pharmacy Oncology Pharmacy Medication Education [...] Each once daily. To test blood sugar Nkulzocjeoodx-Ulirrdhh-Ecndpt (MULTIVITAMIN 50 PLUS) tab Take 1 tablet [...] of chemotherapy NA - Followed up with [facility] for delivery of Free [...] patient Rubin Luo RPh documented in this encounterSamaritan North Health Center04-21-2022 Miscellaneous Notes* Telephone Encounter - Aida Luo [facility] - 11/04/2021 10:54 AM EDT Confirmed with [employer] approval date 11/01/21 and that the specialty pharmacy, [facility], will reach out to Mr Felix 3-5 business days from approval date. If he does not hear from them by 11/10/21 we should call [facility] @ option 2. I informed Mr Felix of this, he has an appt 11/12/21 and said if he has not heard from them by then he will get their phone number from us. Rubin Luo RP documented in this encounterSamaritan North Health Center04-19-2022 Miscellaneous Notes* Telephone Encounter - Jennifer Garcia [...] him know to be expecting this call. [facility] will call patient to set up delivery for all fills. I do not see where he has had chemo education yet. Alba does he need to be set up with you? Thanks Rubin Luo RP * Telephone Encounter - Andreina Castillo RP - 11/01/2021 10:55 AM EDT Patient called today. We completed a conference call with [employer] - they were ableto obtain consent and [...] We will proceed free drug application through [facility]. Pharmacy to reach out to patient 10/29/2021 to notify. Brina Wang RPh * Telephone Encounter - Brina Wang RPh - 10/28/2021 3:08 PM EDT Ambulatory Pharmacy Prior Authorization Note Provider Intervention Required?: No- Pharmacy completed on your behalf. Drug: Xtandi Cover My Meds Carter: [id number] Determination: Approved Prior Authorization/Case #: [id number] Prior Authorization Expiration: 10/28/2022 Time to PA Submission in CMM: 15 min Time to PA Determination in CMM: Same day Additional Information: [employer]-Pay $3,[phone] For questions relating to this submission, please contact [facility] at [phone] documented in this encounterSamaritan North Health Center04-19-2022 Miscellaneous Notes* Telephone Encounter - Zohra Avila PA-C - 11/02/2021 12:00 PM EDT CBC and CMP orders placed Zohra Avila PA-C * Telephone Encounter - Katie Rosen MA - 11/02/2021 11:57 AM EDT Patient has an appt on 11/11/21. Would you like labs, if so place orders. Katie Rosen MA documented in this encounterSamaritan North Health Center04-18-2022 Miscellaneous Notes* Telephone Encounter - Clementine Aguilar [...] assistance program. Thanks, BRM documented in this encounterSamaritan North Health Center04-14-2022 Miscellaneous Notes* Telephone Encounter - Clementine Aguilar RN - 10/28/2021 1:12 PM EDT Voicemail message received from Sandra @ [facility]. Reports the pt's 1st dose of Lupron was given on 02/12/2018. Dr Esqueda notified. Clementine Aguilar RN * Telephone Encounter - Clementine Aguilar RN - 10/28/2021 12:[address] Esqueda requests that we contact Dr Scruggs' office for pt's Lupron start date. Call placed to [facility]. No answer. Message left requesting call back. Clementine Aguilar RN documented in this encounterSamaritan North Health Center04-14-2022 Miscellaneous Notes* Telephone Encounter - Clementine Aguilar RN - 10/28/2021 1:12 PM EDT This encounter was opened in error. @[email or web address]@ documented in this encounterSamaritan North Health Center04-11-2022 Miscellaneous Notes* Telephone Encounter - Christo Howard APRN.ALEXA - 10/25/2021 4:05 PM EDT Hold off for now. Christo Howard APRN.ALEXA * Telephone Encounter - Katie Rosen MA - 10/25/2021 11:01 AM EDT If patient needs labs, please sign/place orders for 10/28/21. Thanks. Katie Rosen MA documented in this encounterSamaritan North Health Center01-01-2015 Evaluation note* Diagnosis Onset Date Resolution Status ASHD (arteriosclerotic heart disease) acute Cervical spondylosis acute Essential hypertension acute Hypercholesterolemia acute Malignant neoplasm of prostate July 17, 2014 acute Nonrheumatic aortic valve stenosis acute GRADY (obstructive sleep apnea) acute Type 2 diabetes mellitus with hyperglycemia acute [facility] Work Phone: Evaluation + Plan note Future Appointments Appointment Date:05/13/2022 08:45:00 AM Scheduled Provider:Anthony SCRUGGS MD Location:[facility] Appointment Type:URO Office Visit Diagnostic Tests Pending * PSA Total 11/08/21 Future Scheduled Tests Laboratory* Basic Metabolic Panel 09/20/21 [facility] evaluation + Plan note Future Appointments Appointment Date:10/28/2022 08:00:00 AM Scheduled Provider:Anthony SCRUGGS MD Location:[facility] Appointment Type:URO Office Visit Diagnostic Tests Pending * PSA Total 09/14/22 Future Scheduled Tests Laboratory* Basic Metabolic Panel 09/20/21 [facility] evaluation + Plan note Future Appointments Appointment Date:10/20/2023 08:45:00 AM Scheduled Provider:Anthony SCRUGGS MD Location:[facility] Appointment Type:URO Office Visit Diagnostic Tests Pending * PSA Total 04/17/23 [facility] evaluation + Plan note Future Appointments Appointment Date:04/19/2024 08:00:00 AM Scheduled Provider:Anthony SCRUGGS MD Location:[facility] Appointment Type:URO Office Visit Diagnostic Tests Pending * PSA Total 02/15/24 [facility] evaluation + Plan note Future Appointments Appointment Date:10/07/2024 09:15:00 AM Scheduled Provider:Anthony SCRUGGS MD Location:[facility] Appointment Type:URO Office Visit Diagnostic Tests Pending * PSA Total 08/17/24 [facility] evaluation note* Diagnosis OPENED IN ERROR- Primary To allow closing an encounter opened in error (used in SmartSet) [facility] Malignant neoplasm of prostate [...] neoplasm of prostate [facility] Diagnosis Malignant neoplasm of prostate (HCC)- Primary Malignant neoplasm of prostate 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, unspecified vessel or lesion type Essential hypertension Unspecified essential hypertension Type 2 diabetes mellitus without complication, without long-term current use of insulin (HCC) documented in this encounter [facility] CenterEvaluation noteNo Link [employer] Other Evaluation note* Diagnosis Malignant neoplasm of prostate (HCC)- Primary Malignant neoplasm of prostate 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, unspecified vessel or lesion type Essential hypertension Unspecified essential hypertension Type 2 diabetes mellitus without complication, without long-term current use of insulin (HCC) [facility] Diagnosis Malignant neoplasm of prostate (HCC)- Primary Malignant neoplasm of prostate [facility]* Diagnosis Malignant neoplasm of prostate (HCC)- Primary Malignant neoplasm of prostate [facility] encounter [facility]* Diagnosis Malignant neoplasm of prostate (HCC)- Primary Malignant neoplasm of prostate 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, unspecified vessel or lesion type Type 2 diabetes mellitus without complication, without long-term current use of insulin (HCC) Lesion of skin of right ear Abdominal discomfort Abdominal pain, unspecified site documented in this encounter [facility]* Diagnosis Onset Date Resolution Status Cervical spondylosis acute Mass of skin of left shoulder acute Primary osteoarthritis, right shoulder acute Shoulder pain, right acute Neck pain noneactive ASHD (arteriosclerotic heart disease) acute Essential hypertension acute Hypercholesterolemia acute Malignant neoplasm of prostate July 17, 2014 acute Nonrheumatic aortic valve stenosis acute GRADY (obstructive sleep apnea) acute Type 2 diabetes mellitus with hyperglycemia acute [facility] Work Phone: Evaluation note* Diagnosis Malignant neoplasm of prostate (HCC)- Primary Malignant neoplasm of prostate [facility] encounter [facility]* Diagnosis Malignant neoplasm of prostate (HCC)- Primary Malignant neoplasm of prostate documented in this [facility]* Diagnosis Malignant neoplasm of prostate (HCC)- Primary Malignant neoplasm of prostate documented in this encounter [facility] note* Diagnosis Malignant neoplasm of prostate (HCC)- Primary Malignant neoplasm of prostate documented in this encounter [facility] general Narrative - Reported* Type Description Date [...] [place] 08/2015 Hospitalization History see surgical hx [place] Other History general Narrative - Reported* Type [...] [place] 08/2015 Hospitalization History see surgical hx [place] Other Hospital course Narrative No data available for this section [facility] progress note No data available for this section [facility] Medications Administered Section Inactive Administered Medications - [...] To Contact Diagnoses Actinic keratosis 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, 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 [address] Reji [address] [place] [id number] Referral ID Status Reason Start Date Expiration Date V isits Requested Visits Authorized [id number] Pending Review 1 1 Reason *FU 06/06 Right fr ontal sinus mass and cerumen impaction Diagnosis 1 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) Diagnosis 2 Impacted cerumen of right ear (H61.21) Referral Organization [facility] Referring Provider First Name Jamar Referring Provider Last Name Juan David Referring Provider Specialty Internal Me dicine Referred Organization [facility] Referred Provider ChapopapoEmelina pineda Referred Address ,[place], [place],[address] Referred Provider Specialty Ear, Nose an d [...] or prosecute any alcohol or drug abuse patient.[facility] the event this information is protected by the Federal Confidentiality of Alcohol and Drug Abuse Patient Records regulations: The Federal rules restrict any use of the information to criminally investigate or prosecute any alcohol or drug abuse patient.[facility] CenterIn the event this information is protected by the Federal Confidentiality of Alcohol and Drug Abuse Patient Records regulations: The Federal rules restrict any use of the information to criminally investigate or prosecute any alcohol or drug abuse patient.[facility] CenterIn the event this information is protected by the Federal Confidentiality of Alcohol and Drug Abuse Patient Records regulations: The Federal rules restrict any use of the information to criminally investigate or prosecute any alcohol or drug abuse patient.[facility] CenterIn the event this information is protected by the Federal Confidentiality of Alcohol and Drug Abuse Patient Records regulations: The Federal rules restrict any use of the information to criminally investigate or prosecute any alcohol or drug abuse patient.[facility] CenterIn the event this information is protected by the Federal Confidentiality of Alcohol and Drug Abuse Patient Records regulations: The Federal rules restrict any use of the information to criminally investigate or prosecute any alcohol or drug abuse patient.[facility] CenterIn the event this information is protected by the Federal Confidentiality of Alcohol and Drug Abuse Patient Records regulations: The Federal rules restrict any use of the information to criminally investigate or prosecute any alcohol or drug abuse patient.[facility] CenterIn the event this information is protected by the Federal Confidentiality of Alcohol and Drug Abuse Patient Records regulations: The Federal rules restrict any use of the information to criminally investigate or prosecute any alcohol or drug abuse patient.[facility] CenterIn the event this information is protected by the Federal Confidentiality of Alcohol and Drug Abuse Patient Records regulations: The Federal rules restrict any use of the information to criminally investigate or prosecute any alcohol or drug abuse patient.[facility] CenterIn the event this information is protected by the Federal Confidentiality of Alcohol and Drug Abuse Patient Records regulations: The Federal rules restrict any use of the information to criminally investigate or prosecute any alcohol or drug abuse patient.[facility] CenterIn the event this information is protected by the Federal Confidentiality of Alcohol and Drug Abuse Patient Records regulations: The Federal rules restrict any use of the information to criminally investigate or prosecute any alcohol or drug abuse patient.[facility] CenterIn the event this information is protected by the Federal Confidentiality of Alcohol and Drug Abuse Patient Records regulations: The Federal rules restrict any use of the information to criminally investigate or prosecute any alcohol or drug abuse patient.[facility] CenterIn the event this information is protected by the Federal Confidentiality of Alcohol and Drug Abuse Patient Records regulations: The Federal rules restrict any use of the information to criminally investigate or prosecute any alcohol or drug abuse patient.[facility] CenterIn the event this information is protected by the Federal Confidentiality of Alcohol and Drug Abuse Patient Records regulations: The Federal rules restrict any use of the information to criminally investigate or prosecute any alcohol or drug abuse patient.[facility] CenterIn the event this information is protected by the Federal Confidentiality of Alcohol and Drug Abuse Patient Records regulations: The Federal rules restrict any use of the information to criminally investigate or prosecute any alcohol or drug abuse patient.[facility] CenterIn the event this information is protected by the Federal Confidentiality of Alcohol and Drug Abuse Patient Records regulations: The Federal rules restrict any use of the information to criminally investigate or prosecute any alcohol or drug abuse patient.[facility] CenterIn the event this information is protected by the Federal Confidentiality of Alcohol and Drug Abuse Patient Records regulations: The Federal rules restrict any use of the information to criminally investigate or prosecute any alcohol or drug abuse patient.[facility] CenterIn the event this information is protected by the Federal Confidentiality of Alcohol and Drug Abuse Patient Records regulations: The Federal rules restrict any use of the information to criminally investigate or prosecute any alcohol or drug abuse patient.[facility] CenterIn the event this information is protected by the Federal Confidentiality of Alcohol and Drug Abuse Patient Records regulations: The Federal rules restrict any use of the information to criminally investigate or prosecute any alcohol or drug abuse patient.[facility] CenterIn the event this information is protected by the Federal Confidentiality of Alcohol and Drug Abuse Patient Records regulations: The Federal rules restrict any use of the information to criminally investigate or prosecute any alcohol or drug abuse patient.[facility] CenterIn the event this information is protected by the Federal Confidentiality of Alcohol and Drug Abuse Patient Records regulations: The Federal rules restrict any use of the information to criminally investigate or prosecute any alcohol or drug abuse patient.[facility] CenterIn the event this information is protected by the Federal Confidentiality of Alcohol and Drug Abuse Patient Records regulations: The Federal rules restrict any use of the information to criminally investigate or prosecute any alcohol or drug abuse patient.[facility] CenterIn the event this information is protected by the Federal Confidentiality of Alcohol and Drug Abuse Patient Records regulations: The Federal rules restrict any use of the information to criminally investigate or prosecute any alcohol or drug abuse patient.[facility] CenterIn the event this information is protected by the Federal Confidentiality of Alcohol and Drug Abuse Patient Records regulations: The Federal rules restrict any use of the information to criminally investigate or prosecute any alcohol or drug abuse patient.[facility] CenterIn the event this information is protected by the Federal Confidentiality of Alcohol and Drug Abuse Patient Records regulations: The Federal rules restrict any use of the information to criminally investigate or prosecute any alcohol or drug abuse patient.[facility] CenterIn the event this information is protected by the Federal Confidentiality of Alcohol and Drug Abuse Patient Records regulations: The Federal rules restrict any use of the information to criminally investigate or prosecute any alcohol or drug abuse patient.[facility] CenterIn the event this information is protected by the Federal Confidentiality of Alcohol and Drug Abuse Patient Records regulations: The Federal rules restrict any use of the information to criminally investigate or prosecute any alcohol or drug abuse patient.[facility] CenterIn the event this information is protected by the Federal Confidentiality of Alcohol and Drug Abuse Patient Records regulations: The Federal rules restrict any use of the information to criminally investigate or prosecute any alcohol or drug abuse patient.[facility] CenterIn the event this information is protected by the Federal Confidentiality of Alcohol and Drug Abuse Patient Records regulations: The Federal rules restrict any use of the information to criminally investigate or prosecute any alcohol or drug abuse patient.[facility] CenterIn the event this information is protected by the Federal Confidentiality of Alcohol and Drug Abuse Patient Records regulations: The Federal rules restrict any use of the information to criminally investigate or prosecute any alcohol or drug abuse patient.[facility] CenterIn the event this information is protected by the Federal Confidentiality of Alcohol and Drug Abuse Patient Records regulations: The Federal rules restrict any use of the information to criminally investigate or prosecute any alcohol or drug abuse patient.[facility] CenterIn the event this information is protected by the Federal Confidentiality of Alcohol and Drug Abuse Patient Records regulations: The Federal rules restrict any use of the information to criminally investigate or prosecute any alcohol or drug abuse patient.[facility]In the event this information is protected by the Federal Confidentiality of Alcohol and Drug Abuse Patient Records regulations: The Federal rules restrict any use of the information to criminally investigate or prosecute any alcohol or drug abuse patient.[facility] CenterIn the event this information is protected by the Federal Confidentiality of Alcohol and Drug Abuse Patient Records regulations: The Federal rules restrict any use of the information to criminally investigate or prosecute any alcohol or drug abuse patient.[facility] CenterIn the event this information is protected by the Federal Confidentiality of Alcohol and Drug Abuse Patient Records regulations: The Federal rules restrict any use of the information to criminally investigate or prosecute any alcohol or drug abuse patient.[facility] CenterIn the event this information is protected by the Federal Confidentiality of Alcohol and Drug Abuse Patient Records regulations: The Federal rules restrict any use of the information to criminally investigate or prosecute any alcohol or drug abuse patient.[facility] Care Teams (unrecognized sec tion and content) Rn Plastics Relationship Specialty Start Date End Date Jamar Fall Jessica, DO PCP - General Internal Medicine 08/04/14 Rn Plastics Relationship Specialty Start Date End Date Jamar Fall, DO PCP - General Internal Medicine 08/04/14 Rn Plastics Relationship Specialty Start Date End Date Juan David Jamar Jessica, DO PCP - General Internal Medicine 08/04/14 Rn Plastics Relationship Specialty Start Date End Date Jamar Fall, DO PCP - General Internal Medicine 08/04/14 Marco A Esqueda MD [address] [place] [address] Physician Hematology/Oncology 11/02/21 Christo Howard, BLEACH MAKER.CLERK OPERATOR [address] [place] [address] Nurse Practitioner Hematology/Oncology 11/02/21 Clementine Aguilar, ANITHA [address] [place] [address] Specialty Filter Press Tender Hematology/Oncology 11/02/21 Rn Plastics Relationship Specialty Start Date End Date Jamar Fall, DO PCP - General Internal Medicine 08/04/14 Marco A Esqueda MD [address] [place] [address] Physician Hematology/Oncology 11/02/21 Christo Howard, BLEACH MAKER.CLERK OPERATOR [address] [place] [address] Nurse Practitioner Hematology/Oncology 11/02/21 Clementine Aguilar, RN [address] [place] [address] Specialty Filter Press Tender Hematology/Oncology 11/02/21 Rn Plastics Relationship Specialty Start Date End Date Jamar Fall, DO PCP - General Internal Medicine 08/04/14 Marco A Esqueda MD [address] [place] [address] Physician Hematology/Oncology 11/02/21 Christo Howard, BLEACH MAKER.CLERK OPERATOR [address] [place] [address] Nurse Practitioner Hematology/Oncology 11/02/21 Clementine Aguilar, ANITHA [address] [place] [address] Specialty Filter Press Tender Hematology/Oncology 11/02/21 Rn Plastics Relationship Specialty Start Date End Date Jamar Fall, DO PCP - General Internal Medicine 08/04/14 Marco A Esqueda MD [address] [place] [address] Physician Hematology/Oncology 11/02/21 Christo Howard, BLEACH MAKER.CLERK OPERATOR [address] [place] [address] Nurse Practitioner Hematology/Oncology 11/02/21 Clementine Aguilar, RN [address] [place] [address] Specialty Filter Press Tender Hematology/Oncology 11/02/21 Rn Plastics Relationship Specialty Start Date End Date Jamar Fall, DO PCP - General Internal Medicine 08/04/14 Marco A Esqueda MD [address] [facility] [place] [address] Physician Hematology/Oncology 11/02/21 Christo Howard, BLEACH MAKER.CLERK OPERATOR [address] [address] Nurse Practitioner Hematology/Oncology 11/02/21 Clementine Aguilar, ANITHA [address] [place] [address] Specialty Filter Press Tender Hematology/Oncology 11/02/21 Rn Plastics Relationship Specialty Start Date End Date Jamar Fall, DO PCP - General Internal Medicine 08/04/14 Marco A Esqueda MD [address] [facility] [place] [address] Physician Hematology/Oncology 11/02/21 Christo Howard, BLEACH MAKER.CLERK OPERATOR [address] [facility] [address] Nurse Practitioner Hematology/Oncology 11/02/21 Clementine Aguilar, ANITHA [address] [place] [address] Specialty Filter Press Tender Hematology/Oncology 11/02/21 Rn Plastics Relationship Specialty Start Date End Date Jamar Fall, DO PCP - General Internal Medicine 08/04/14 Marco A Esqueda MD [address] [place] [address] Physician Hematology/Oncology 11/02/21 Christo Howard, BLEACH MAKER.CLERK OPERATOR [address] [place] [address] Nurse Practitioner Hematology/Oncology 11/02/21 Clementine Aguilar, RN [address] [place] [address] Specialty Filter Press Tender Hematology/Oncology 11/02/21 Rn Plastics Relationship Specialty Start Date End Date Jamar Fall, DO PCP - General Internal Medicine 08/04/14 Marco A Esqueda MD [address] [place] [address] Physician Hematology/Oncology 11/02/21 Christo Howard, BLEACH MAKER.CLERK OPERATOR [address] [facility] [address] Nurse Practitioner Hematology/Oncology 11/02/21 Clementine Aguilar, ANITHA [address] [address] Specialty Filter Press Tender Hematology/Oncology 11/02/21 Rn Plastics Relationship Specialty Start Date End Date Jamar Fall, DO PCP - General Internal Medicine 08/04/14 Marco A Esqueda MD [address] [place] [address] Physician Hematology/Oncology 11/02/21 Christo Howard, BLEACH MAKER.CLERK OPERATOR [address] [facility] [facility] [address] Nurse Practitioner Hematology/Oncology 11/02/21 Clementine Aguilar, ANITHA [address] [place] [address] Specialty Filter Press Tender Hematology/Oncology 11/02/21 Rn Plastics Relationship Specialty Start Date End Date Jamar Fall, DO PCP - General Internal Medicine 08/04/14 Marco A Esqueda MD [address] [address] [place], [place] [id number] Physician Hematology/Oncology 11/02/21 Christo Howard, BLEACH MAKER.[facility] [address] [address] Nurse Practitioner Hematology/Oncology 11/02/21 Clementine Aguilar, ANITHA [address] [address] Specialty Filter Press Tender Hematology/Oncology 11/02/21 Rn Plastics Relationship Specialty Start Date End Date Jamar Fall, DO PCP - General Internal Medicine 08/04/14 Marco A Esqueda MD [address] [place] [address] Physician Hematology/Oncology 11/02/21 Christo Howard, BLEACH MAKER.[facility] [address] [address] Nurse Practitioner Hematology/Oncology 11/02/21 Clementine Aguilar, ANITHA [address] [address] [address] Specialty Filter Press Tender Hematology/Oncology 11/02/21 Rn Plastics Relationship Specialty Start Date End Date Jamar Fall, DO PCP - General Internal Medicine 08/04/14 Marco A Esqueda MD [address] [place] [address] Physician Hematology/Oncology 11/02/21 Christo Howard, BLEACH MAKER.[facility] [address] [place] [address] Nurse Practitioner Hematology/Oncology 11/02/21 Clementine Aguilar, ANITHA [address] [place] [address] Specialty Filter Press Tender Hematology/Oncology 11/02/21 Rn Plastics Relationship Specialty Start Date End Date Jamar Fall DO PCP - General Internal Medicine 08/04/14 Marco A Esqueda MD [address] [facility] [place] [address] Physician Hematology/Oncology 11/02/21 Christo Howard, BLEACH MAKER.CLERK OPERATOR [address] [facility] [place] [address] Nurse Practitioner Hematology/Oncology 11/02/21 Clementine Aguilar, RN [address] [place] [address] Specialty Filter Press Tender Hematology/Oncology 11/02/21 Rn Plastics Relationship Specialty Start Date End Date Jamar Fall DO PCP - General Internal Medicine 08/04/14 Marco A Esqueda MD [address] [place] [address] [address] [place], [place] [id number] Physician Hematology/Oncology 11/02/21 Christo Howard, BLEACH MAKER.CLERK OPERATOR [address] [place] [address] [place] [address] Nurse Practitioner Hematology/Oncology 11/02/21 Clementine Aguilar, ANITHA [address] [facility] [place] [address] Specialty Filter Press Tender Hematology/Oncology 11/02/21 Rn Plastics Relationship Specialty Start Date End Date Jamar Fall DO PCP - General Internal Medicine 08/04/14 Marco A Esqueda MD [address] [facility] [address] Physician Hematology/Oncology 11/02/21 Christo Howard, BLEACH MAKER.CLERK OPERATOR [address] [facility] [address] Nurse Practitioner Hematology/Oncology 11/02/21 Clementine Aguilar, ANITHA [address] [facility] [address] Specialty Filter Press Tender Hematology/Oncology 11/02/21 Rn Plastics Relationship Specialty Start Date End Date Jamar Fall DO PCP - General Internal Medicine 08/04/14 Marco A Esqueda MD [address] [facility] [place] [address] Physician Hematology/Oncology 11/02/21 Christo Howard, BLEACH MAKER.CLERK OPERATOR [address] [facility] [address] Nurse Practitioner Hematology/Oncology 11/02/21 Clementine Aguilar, ANITHA [address] [facility] [place] [address] Specialty Filter Press Tender Hematology/Oncology 11/02/21 Rn Plastics Relationship Specialty Start Date End Date Jamar Fall DO PCP - General Internal Medicine 08/04/14 Marco A Esqueda MD [address] [facility] [place] [address] Physician Hematology/Oncology 11/02/21 Christo Howard, BLEACH MAKER.CLERK OPERATOR [address] [place] [address] [place] [address] Nurse Practitioner Hematology/Oncology 11/02/21 Clementine Aguilar, RN [address] [place] [address] [place] [address] Specialty Filter Press Tender Hematology/Oncology 11/02/21 Rn Plastics Relationship Specialty Start Date End Date Jamar Fall MD [address] [place] [id number] PCP - General Internal Medicine 05/31/23 Rn Plastics Relationship Specialty Start Date End Date Jamar Fall MD [address] [place] [address] PCP - General Internal Medicine 05/31/23 Rn Plastics Relationship Specialty Start Date End Date Jamar Fall DO PCP - General Internal Medicine 08/04/14 Marco A Esqueda MD [address] [place] [address] [place] [address] Physician Hematology/Oncology 11/02/21 Christo Howard APRN.CLERK OPERATOR [address] [place] [address] [place] [address] Nurse Practitioner Hematology/Oncology 11/02/21 Clementine Aguilar, ANITHA [address] [place] [address] [place] [address] Specialty Filter Press Tender Hematology/Oncology 11/02/21 [employer] Relationship Specialty Start Date End Date Jamar Fall DO PCP - General Internal Medicine 08/04/14 Marco A Esqueda MD [address] [place] [address] Physician Hematology/Oncology 11/02/21 Christo Howard, BLEACH MAKER.CLERK OPERATOR [address] [place] [address] Nurse Practitioner Hematology/Oncology 11/02/21 Clementine Aguilar, ANITHA [address] [place] [address] Specialty Filter Press Tender Hematology/Oncology 11/02/21 Team Status: Active Member Role [...] November 23, 2023 End: November 23, 2023 Rn Plastics Relationship Specialty Start Date End Date Jamar Fall DO PCP - General Internal Medicine 08/04/14 Marco A Esqueda MD [address] [place] [address] Physician Hematology/Oncology 11/02/21 Christo Howard, BLEACH MAKER.CLERK OPERATOR [address] [place] [address] Nurse Practitioner Hematology/Oncology 11/02/21 Clementine Aguilar, ANITHA [address] [place] [address] Specialty Filter Press Tender Hematology/Oncology 11/02/21 Rn Plastics Relationship Specialty Start Date End Date Jamar Fall DO PCP - General Internal Medicine 08/04/14 Marco A Esqueda MD [address] [facility] [place] [address] Physician Hematology/Oncology 11/02/21 Christo Howard, BLEACH MAKER.CLERK OPERATOR [address] [facility] [place] [address] Nurse Practitioner Hematology/Oncology 11/02/21 Clementine Aguilar, ANITHA [address] [place] [address] Specialty Filter Press Tender Hematology/Oncology 11/02/21 Team Status: Active Member Role Status Dates Jamar Fall DO Primary Care Provider Active Start: January 25, 2024 SAMAN Collins Attending Provider Active Start: January 25, 2024 Team Status: Inactive Member Role Status Dates Jamar Fall DO Primary Care Provide r, Attending Provider Active Start: March 26, 2024 End: March 26, 2024 Rn Plastics Relationship Specialty Start Date End Date Jamar Fall DO PCP - General Internal Medicine 08/04/14 Marco A Esqueda MD [address] [place] [address] Physician Hematology/Oncology 11/02/21 Christo Howard, BLEACH MAKER.CLERK OPERATOR [address] [place] [address] Nurse Practitioner Hematology/Oncology 11/02/21 Clementine Aguilar, ANITHA [address] [place] [address] Specialty Filter Press Tender Hematology/Oncology 11/02/21 Rn Plastics Relationship Specialty Start Date End Date Jamar Fall DO PCP - General Internal Medicine 08/04/14 Marco A Esqueda MD [address] [place] [address] Physician Hematology/Oncology 11/02/21 Christo Howard, BLEACH MAKER.CLERK OPERATOR [address] [place] [address] Nurse Practitioner Hematology/Oncology 11/02/21 Clementine Aguilar RN [address] [place] [address] Specialty Filter Press Tender Hematology/Oncology 11/02/21 Rn Plastics Relationship Specialty Start Date End Date Jamar Fall DO PCP - General Internal Medicine 08/04/14 Marco A Esqueda MD [address] [place] [address] Physician Hematology/Oncology 11/02/21 Christo Howard, BLEACH MAKER.CLERK OPERATOR [address] [place] [address] Nurse Practitioner Hematology/Oncology 11/02/21 Clementine Aguilar, ANITHA [address] [place] [address] Specialty Filter Press Tender Hematology/Oncology 11/02/21 Reason for Visit (unrecogniz ed [...] up Specialty Diagnoses / Procedures [facility] Referred To Contact Diagnoses Malignant neoplasm of prostate (HCC) Procedures DENOSUMAB INJECTION Marco A Esqueda MD [address] [place] [address] Himanshu Treat [facility] [address] [place] [address] Referral ID Status Reason Start Date Expiration Date V isits Requested Visits Authorized [id number] Authorized 11/11/2021 07/16/2022 99 99 Reason Comments Care Coordination Refill Question Reason Comments Prostate Cancer 1 month follow up Reason Comments Prostate Cancer Follow up Reason Comments Prostate Cancer 3 month follow up Reason Comments Prostate Cancer Reason Comments Prostate Cancer Follow up Reason Comments Suspicious Skin Lesion Specialty Diagnoses / Procedures [facility] Referred To Contact Dermatology Diagnoses lesion of skin of R ear Marco A Esqueda MD [address] [place] [address] [place] [address] Lety Holguin MD [address] [place] [address] Referral ID Status Reason Start Date Expiration Date Visits Re quested Visits Authorized [id number] Closed 08/04/2023 01/31/2024 1 1 Reason Comments Prostate Cancer 3 month follow up Established Patient Reason Comments Refill Request Reason Onset Date Comments Refill Request 04/01/2024 Reason Onset Date Comments Refill Request 05/08/2024 (unrecognized sect ion and content) No Status Records FoundNo Status Records FoundNo Status Records FoundNo Status Records FoundNo Status Records Found INFORMATION SOURCE (unrecogn ized section and content) DATE CREATED AUTHOR 10/31/2022 [facility] DATE CREATED AUTHOR AUTHOR'S ORGANIZ ATION 03/02/2024 [facility] EPIC DATE CREATED AUTHOR AUTHOR'S ORGANIZ ATION 04/02/2024 [facility] DATE CREATED AUTHOR AUTHOR'S ORGANIZ ATION 04/21/2024 [facility] DATE CREATED AUTHOR AUTHOR'S ORGANIZ ATION 05/10/2024 [facility] Inactive Administered Medications - up to [...] BE BASED ON THE PRIMARY CLINICAL RECORDS. [employer] provides no warranty or guarantee of the accuracy or completeness of information in this document.
== END 2024-06-03 09:17 | disposition home or self-care (01) ==
LOC: RAD 09:16
PROVIDERS: Visit Provider Internal Medicine
DX: Z01.89 Encounter for other specified special examinations (principal); K86.89 Other specified diseases of pancreas
CPT/HCPCS: 70030; 74181

== ENCOUNTER 2024-06-04 08:44 | Day surgery (SDC) | payer MEDICARE, OTHER, SELFPAY ==
[2024-06-04 09:05] VITALS: BP 117/64; PULSE 52; TEMP 36.8; O2SAT 99
[2024-06-04 09:13] LABS: Glucometer 98 mg/dL (74-106)
[2024-06-04 10:14] VITALS: BP 137/65; PULSE 67; O2SAT 98
[2024-06-04 10:15] VITALS: BP 143/68; PULSE 63; O2SAT 98
[2024-06-04] MEDS: BUPIVACAINE HCL 0.25% PF 25 MG/10 ML VIAL 4 ML INJ (10:19)
--- NOTE | 2024-06-04 10:33 | P.ON_ITS ---
Date of procedure: 06/04/24 Pre-op diagnosis: Cervical spondylosis Post-op diagnosis: same as pre-op Procedure: Left Cervical 4/5, 5/6 medial branch block Under fluoroscopic guidance Solution injected: 2millilitersMarcaine 0.25% Anesthesia :none Immediate complications none Time out process compliant After informed consent obtained from the patient placed in the Prone proposition . area was prepped and draped in a sterile fashion using Cloraprep .25 gauge spinal needle inserted over each of the above mentioned target areas . [place] were directed towards the target under fluoroscopic guidance . after encountering each of the targets , no indication of intravascular intraneuronal or intrathecal needle tip placement. Then 0 .5 to 1 Milliliter was injected at each level. [place] removed postoperatively. patient transferred to recovery in stable condition to be discharged home after meeting criteria Anesthesia: Local Surgeon: Nina rAriaga Condition: stable
== END 2024-06-04 10:25 | disposition home or self-care (01) ==
LOC: SURGOUT 08:45
PROVIDERS: Visit Provider Anesthesiology Pain Medicine
DX: M47.812 Spondylosis without myelopathy or radiculopathy, cervical region (principal); E11.9 Type 2 diabetes mellitus without complications; Z79.84 Long term (current) use of oral hypoglycemic drugs
CPT/HCPCS: 36415; 64490; 64491; 82948; J0665

== ENCOUNTER 2024-06-10 09:25 | Outpatient (OUT) | payer MEDICARE, OTHER, SELFPAY ==
--- NOTE | 2024-06-10 09:28 | CT_ITS ---
The [address] [address] Patient Name: PABLO ONEIL MRN: [id number] date: 1945 Sex: M Assigned Patient Location: CT Current Patient Location: Accession/Order Number: [id number] Exam Date: 06/10/2024 09:40 Report Date: 06/11/2024 06:55 At the request of: LISSA FALL Procedure: CT sinus wo con EXAMINATION: CT sinus wo con HISTORY: Mass Of Sinus COMPARISON: CT sinuses 06/02/2023 TECHNIQUE: Axial and Coronal CT images were created without and/or with IV contrast as indicated by examination type. Dose reduction techniques were achieved by using automated exposure control and/or adjustment of mA and/or kV according to patient size and/or use of iterative reconstruction technique. FINDINGS: MAXILLARY SINUSES: No significant mucosal thickening or fluid. Infundibula are patent. No significant anomalous inferior orbital ethmoid (Ajay) air cells. ETHMOID SINUSES: No significant mucosal thickening or fluid. Fovea ethmoidali and lamina papyracea are symmetric and intact. SPHENOID SINUSES: No significant mucosal thickening or fluid. Sphenoethmoidal recesses are patent. No bony dehiscence. FRONTAL SINUSES: Stable 2 cm lobulated hyperdense/calcified mass within the midline frontal sinus. NASAL FOSSA: 2 mm leftward deviation of the nasal septum along with a 7 mm septal spur projecting to the left.. No garry bullosa or paradoxical turbinates are identified. OTHER: Negative. Limited views of the skull base and orbits are unremarkable. CT/CT sinus wo con IMPRESSION: 1. 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 2. No CT evidence of acute or chronic sinusitis. Electronically authenticated by: CYNTHIA TORRES Date: 06/11/2024 06:55
== END 2024-06-10 09:26 | disposition home or self-care (01) ==
LOC: CT 09:25
PROVIDERS: Visit Provider Internal Medicine
DX: J34.89 Other specified disorders of nose and nasal sinuses (principal)
CPT/HCPCS: 70486

== ENCOUNTER 2024-06-12 07:52 | Outpatient (OUT) | payer MEDICARE, OTHER, SELFPAY ==
--- OUTSIDE RECORDS SUMMARY | 2024-06-12 08:13 | XMS_ITS | CCD ---
Author Organization [facility] Care Team Providers Care Site Physician Name Role Phone Jamar Fall DO Primary Care Provider Dheeraj JAMES, Marco A R Unavailable [facility] STAMPING MACHINE OPERATOR.ALEXA, Christo Unavailable [phone] Lauren WELSH, Clementine Unavailable JAMAR FALL Primary Care Physician [phone] Jamar Fall DO Primary Care Provider Dheeraj JAMES, Marco A R Unavailable [facility] STAMPING MACHINE OPERATOR.DIRECTOR OF MARKETING, Christo Unavailable Lauren WELSH, Clementine Unavailable Jamar Fall DO Primary Care Provider Dheeraj JAMES, Marco A R Unavailable [phone] [facility] STAMPING MACHINE OPERATOR.ALEXA, Christo Unavailable Lauren WELSH, Clementine Unavailable [phone] Jamar Fall Unavailable JUAN DAVID, DR ALCARAZ [...] Consulting Unavaila ble Lauren WELSH, Clementine Unavailable [phone] Jamar Benedict MD Primary Care Provider Jamar Fall DO Primary Care Provider LONG BOO Attending Unavailable MARCO A ESQUEDA Referring Unavailable EMELINA LOUIS Attending Unavailable BALL, JMAAR E Referring Unavailable PABLO CHRISTINA Attending Unavailable LONG BOO Attending Unavailable ALEXIA FRANCO Attending Unavailable DANILOTABRIDGER STEVENS Attending Unavailable LORA ENGLISH Attending Unavailable SCRUGGSAnthony Attending Unavailable SCRUGGSAnthony [...] Penicillins; Translations: [PENICILLINS] Drug Allergy 1 Unknown [facility] (20 sources) Penicillin G; Translations: [penicillin G benzathine] Drug Allergy 1 Unknown (qualifier value) [facility] (20 sources) Penicillins Drug Allergy 5 Unknown [facility] (20 sources) Simvastatin; Translations: [SIMVASTATIN] Drug Allergy 2 Unknown [facility] (1 source) Penicillins Drug allergy (disorder) 5 [facility] Rep[facility] (1 source) Penicillin Drug Allergy Unknown [employer] Other (1 source) Allergies Reconciled Propensity to adverse reactions Unknown [employer] Other (1 source) patient allergy list reviewed by nurse or physicia Propensity to adverse reactions 9 Comment:Done [employer] Other (3 sources) Simvastatin Propensity to adverse [...] sources) Anticholinergic Start: 10-20-2023 ipratropium Nasal 0.06% [place] Refill(s) 0 Start Date: 10/20/23 Status: Ordered [...] on above: TAKE 2 TABLETS BY [place] [facility] ONCE A DAY WITH FOOD Take 1,000 [...] by mouth twice daily. Take by mouth. Afhytqynwfzad-Xbiiknlc-Hbeeq n (MULTIVITAMIN 50 PLUS) tab (20 sources) [...] Comment on above: Take 1 tablet by [facility] twice daily. clopidogrel 75 mg oral [...] Coronary arteriosclerosis; Translations: [Atherosclerotic heart disease of [place] coronary artery without angina pectoris] Onset: 10-10-2014 [...] Name Value Interpretation Reference Range Facility [facility] 05-09-2024 OVS Visit (SP) Office (H EMASA) PABLO FELIX ([id number]) 1945 M Date Time Provider Department 05/09/24 9:15 AM MARCO A ESQUEDA During your visit today, we recorded the following information about you: Temperature Pulse Respiration Blood pressure 97.3 degrees 62/minute 16/minute 141/62 Weight 92.1 kg Marco A Esqueda MD 05/10/2024 7:40 AM Signed PATIENT NAME: Pablo Felix DATE: 05/09/2024 PRIMARY CARE PHYSICIAN: Dr. Jamar Fall OTHER PHYSICIANS: Dr. Anthony Scruggs, Dr. Khan, [facility] Cardiology Portions of this encounter note [...] mg 24 hr tablet Take by mouth. 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 Left base margin positive for neoplasm. Seminal vesicles with no diagnostic abnormality. 2 resected lymph nodes negative for neoplasm. LABS: Hemoglobin (g/dL) Date Value 05/03/2024 11.5 05/08/2018 12.8 Hematocrit (%) Date Value 05/03/2024 33.2 05/08/2018 36.8 WBC (k/uL) Date Value 1 (more content not included)... Normal [facility] CBC W Auto Differential pane l (Bld)on 05-03-2024 Basophils (Bld) [#/Vol] 0.03 10*3/uL Normal <0.11 [facility] Comment on above: Order Comment: Speci men Type: BLOOD SPECIMEN Ordering Facility: [facility] Address: [address] [place] [address] Performed By: #### 5 7021-8 #### [facility] CLIA [id number] [address] [place] [address] 73772 Basophils/100 WBC (Bld) 0.5 % Normal [facility] Comment on above: Order Comment: Speci men Type: BLOOD SPECIMEN Ordering Facility: [facility] Address: [address] [place] [address] Performed By: #### 5 7021-8 #### [facility] CLIA [id number] [address] [place] [address] 37205 Differential cell count method Nom (Bld) Auto Normal [facility] Comment on above: Order Comment: Speci men Type: BLOOD SPECIMEN Ordering Facility: [facility] Address: [address] [place] [address] Performed By: #### 5 7021-8 #### [facility] CLIA [id number] [address] [place] [address] 40081 Eosinophils (Bld) [#/Vol] 0.48 10*3/uL High <0.46 [facility] Comment on above: Order Comment: Speci men Type: BLOOD SPECIMEN Ordering Facility: [facility] Address: [address] [place] [address] Performed By: #### 5 7021-8 #### [facility] CLIA [id number] [address] [place] [address] 14060 Eosinophils/100 WBC (Bld) 8.0 % Normal [facility] Comment on above: Order Comment: Speci men Type: BLOOD SPECIMEN Ordering Facility: [facility] Address: [facility] [place] [address] Performed By: #### 5 7021-8 #### [facility] CLIA [id number] [address] [place] [address] 81708 Erythrocyte distribution width (RBC) [Ratio] 12.6 % Normal 11.5-15.0 [facility] Comment on above: Order Comment: Speci men Type: BLOOD SPECIMEN Ordering Facility: [facility] Address: [address] [place] [address] Performed By: #### 5 7021-8 #### [facility] CLIA [id number] [address] [place] [address] Hematocrit (Bld) [Volume fraction] 33.2 % Low 39.0-51.0 [facility] Comment on above: Order Comment: Speci men Type: BLOOD SPECIMEN Ordering Facility: [facility] Address: [address] [place] [address] Performed By: #### 5 7021-8 #### [facility] CLIA [id number] [address] [place] [address] 91978 Hemoglobin (Bld) [Mass/Vol] 11.5 g/dL Low 13.0-17.0 [facility] Comment on above: Order Comment: Speci men Type: BLOOD SPECIMEN Ordering Facility: [facility] Address: [address] [place] [address] Performed By: #### 5 7021-8 #### [facility] CLIA [id number] [address] [place] [address] 61653 Immature granulocytes (Bld) [#/Vol] 0.04 10*3/uL Normal <0.10 [facility] Comment on above: Order Comment: Speci men Type: BLOOD SPECIMEN Ordering Facility: [facility] Address: [address] [place] [address] Performed By: #### 5 7021-8 #### [facility] CLIA [id number] [address] [place] [address] 91111 Immature granulocytes/100 WBC (Bld) 0.7 % Normal [facility] Comment on above: Order Comment: Speci men Type: BLOOD SPECIMEN Ordering Facility: [facility] Address: [address] [place] [address] Performed By: #### 5 7021-8 #### [facility] CLIA [id number] [address] [place] [address] Lymphocytes (Bld) [#/Vol] 1.76 10*3/uL Normal 1.00-4.00 [facility] Comment on above: Order Comment: Speci men Type: BLOOD SPECIMEN Ordering Facility: [facility] Address: [address] [place] [address] Performed By: #### 5 7021-8 #### [facility] CLIA [id number] [address] [place] [address] Lymphocytes/100 WBC (Bld) 29.4 % Normal [facility] Comment on above: Order Comment: Speci men Type: BLOOD SPECIMEN Ordering Facility: [facility] Address: [address] [place] [address] Performed By: #### 5 7021-8 #### [facility] CLIA [id number] [address] [place] [address] 56574 MCH (RBC) [Entitic mass] 33.0 pg Normal 26.0-34.0 [facility] Comment on above: Order Comment: Speci men Type: BLOOD SPECIMEN Ordering Facility: [facility] Address: [address] [place] [address] Performed By: #### 5 7021-8 #### [facility] CLIA [id number] [address] [place] [address] 45277 MCHC (RBC) [Mass/Vol] 34.6 g/dL Normal 30.5-36.0 [facility] Comment on above: Order Comment: Speci men Type: BLOOD SPECIMEN Ordering Facility: [facility] Address: [address] [place] [address] Performed By: #### 5 7021-8 #### [facility] CLIA [id number] [address] [place] [address] 62119 MCV (RBC) [Entitic vol] 95.1 fL Normal 80.0-100.0 [facility] Comment on above: Order Comment: Speci men Type: BLOOD SPECIMEN Ordering Facility: [facility] Address: [address] [place] [address] Performed By: #### 5 7021-8 #### [facility] CLIA [id number] [address] [place] [address] 85366 Monocytes (Bld) [#/Vol] 0.48 10*3/uL Normal <0.87 [facility] Comment on above: Order Comment: Speci men Type: BLOOD SPECIMEN Ordering Facility: [facility] Address: [address] [place] [address] Performed By: #### 5 7021-8 #### [facility] CLIA [id number] [address] [place] [address] 46771 Monocytes/100 WBC (Bld) 8.0 % Normal [facility] Comment on above: Order Comment: Speci men Type: BLOOD SPECIMEN Ordering Facility: [facility] Address: [address] [place] [address] Performed By: #### 5 7021-8 #### [facility] CLIA [id number] [address] [place] [address] 23350 Neutrophils (Bld) [#/Vol] 3.19 10*3/uL Normal 1.45-7.50 [facility] Comment on above: Order Comment: Speci men Type: BLOOD SPECIMEN Ordering Facility: [facility] Address: [address] [place] [address] Performed By: #### 5 7021-8 #### [facility] CLIA [id number] [address] [place] [address] 82888 Neutrophils/100 WBC (Bld) 53.4 % Normal [facility] Comment on above: Order Comment: Speci men Type: BLOOD SPECIMEN Ordering Facility: [facility] Address: [address] [place] [address] Performed By: #### 5 7021-8 #### [facility] CLIA [id number] [address] [place] [address] 61458 Nucleated RBC (Bld) [#/Vol] 10*3/uL Normal <0.01 [facility] Comment on above: Order Comment: Speci men Type: BLOOD SPECIMEN Ordering Facility: [facility] Address: [address] [place] [address] Performed By: #### 5 7021-8 #### [facility] CLIA [id number] [address] [place] [address] 22618 Nucleated RBC/100 WBC (Bld) [Ratio] 0.0 /100 WBC Normal [facility] Comment on above: Order Comment: Speci men Type: BLOOD SPECIMEN Ordering Facility: [facility] Address: [address] [place] [address] Performed By: #### 5 7021-8 #### [facility] CLIA [id number] [address] [place] [address] 75049 Platelet mean volume (Bld) [Entitic vol] 9.3 fL Normal 9.0-12.7 [facility] Comment on above: Order Comment: Speci men Type: BLOOD SPECIMEN Ordering Facility: [facility] Address: [address] [place] [address] Performed By: #### 5 7021-8 #### [facility] CLIA [id number] [address] [place] [address] 67172 Platelets (Bld) [#/Vol] 192 10*3/uL Normal 150-400 [facility] Comment on above: Order Comment: Speci men Type: BLOOD SPECIMEN Ordering Facility: [facility] Address: [address] [place] [address] Performed By: #### 5 7021-8 #### [facility] CLIA [id number] [address] [place] [address] 45898 RBC (Bld) [#/Vol] 3.49 10*6/uL Low 4.20-6.00 [facility] Comment on above: Order Comment: Speci men Type: BLOOD SPECIMEN Ordering Facility: [facility] Address: [address] [place] [address] Performed By: #### 5 7021-8 #### [facility] CLIA [id number] [address] [place] [address] [place] [address] WBC (Bld) [#/Vol] 5.98 10*3/uL Normal 3.70-11.00 [facility] Comment on above: Order Comment: Speci men Type: BLOOD SPECIMEN Ordering Facility: [facility] Address: [address] [place], [place] [address] Performed By: #### 5 7021-8 #### [facility] CLIA [id number] [address] [place] [address] 44024 Comprehensive metabolic 2000 panelon 05-03-2024 Albumin [Mass/Vol] 3.9 g/dL Normal 3.9-4.9 [facility] Comment on above: Order Comment: Speci men Type: BLOOD SPECIMEN Ordering Facility: [facility] Address: [address] [place] [address] Performed By: #### 5 7021-8 #### [facility] CLIA [id number] [address] [place] [address] 39211 ALP [Catalytic activity/Vol] 71 U/L Normal 38-113 [facility] Comment on above: Order Comment: Speci men Type: BLOOD SPECIMEN Ordering Facility: [facility] Address: [address] [place] [address] Performed By: #### 5 7021-8 #### [facility] CLIA [id number] [address] [place] [address] 98654 ALT [Catalytic activity/Vol] 16 U/L Normal 10-54 [facility] Comment on above: Order Comment: Speci men Type: BLOOD SPECIMEN Ordering Facility: [facility] Address: [address] [place] [address] Performed By: #### 5 7021-8 #### [facility] CLIA [id number] [address] [place] [address] 62399 Anion gap [Moles/Vol] 9 mmol/L Normal 8-15 [facility] Comment on above: Order Comment: Speci men Type: BLOOD SPECIMEN Ordering Facility: [facility] Address: [address] [place] [address] Performed By: #### 5 7021-8 #### [facility] CLIA [id number] [address] [place] [address] AST [Catalytic activity/Vol] 17 U/L Normal 14-40 [facility] Comment on above: Order Comment: Speci men Type: BLOOD SPECIMEN Ordering Facility: [facility] Address: [address] [place], [place] [address] Performed By: #### 5 7021-8 #### [facility] CLIA [id number] [address] [place] [address] 04281 Bilirubin [Mass/Vol] 0.5 mg/dL Normal 0.2-1.3 [facility] Comment on above: Order Comment: Speci men Type: BLOOD SPECIMEN Ordering Facility: [facility] Address: [address] [place] [address] Performed By: #### 5 7021-8 #### [facility] CLIA [id number] [address] [place] [address] 36383 Calcium [Mass/Vol] 9.5 mg/dL Normal 8.5-10.2 [facility] Comment on above: Order Comment: Speci men Type: BLOOD SPECIMEN Ordering Facility: [facility] Address: [address] [place] [address] Performed By: #### 5 7021-8 #### [facility] CLIA [id number] [address] [place] [address] 94145 Chloride [Moles/Vol] 104 mmol/L Normal 98-107 [facility] Comment on above: Order Comment: Speci men Type: BLOOD SPECIMEN Ordering Facility: [facility] Address: [address] [place] [address] Performed By: #### 5 7021-8 #### [facility] CLIA [id number] [address] [place] [address] 44709 CO2 [Moles/Vol] 26 mmol/L Normal 22-30 [facility] Comment on above: Order Comment: Speci men Type: BLOOD SPECIMEN Ordering Facility: [facility] Address: [address] [place] [address] Performed By: #### 5 7021-8 #### [facility] CLIA [id number] [address] [place] [address] 86620 Creatinine [Mass/Vol] 0.88 mg/dL Normal 0.73-1.22 [facility] Comment on above: Order Comment: Speci men Type: BLOOD SPECIMEN Ordering Facility: [facility] Address: [address] [place] [address] Performed By: #### 5 7021-8 #### [facility] CLIA [id number] [address] [place] [address] 05525 Creatinine and Glomerular filtration rate.predicted panel (S/P/Bld) 88 mL/min/1.73m??? Normal >=60 [facility] Comment on above: Order Comment: Speci men Type: BLOOD SPECIMEN Ordering Facility: [facility] Address: [address] [place] [address] Result Comment: Renae mated Glomerular Filtration Rate [...] GFR. Performed By: #### 5 7021-8 #### [facility] CLIA [id number] [address] [place] [address] 07527 Glucose [Mass/Vol] 106 mg/dL High 74-99 [facility] Comment on above: Order Comment: Speci men Type: BLOOD SPECIMEN Ordering Facility: [facility] Address: [address] [place] [address] Result Comment: The [place] Diabetes Association (ADA) provides guidance for cutoff [...] Standards of Medical Care in Diabetes 2016, [place] Diabetes Association. Diabetes Care. 2016.39(Suppl 1). Performed By: #### 5 7021-8 #### [facility] CLIA [id number] [address] [place] [address] 32404 Potassium [Moles/Vol] 5.6 mmol/L High 3.7-5.1 [facility] Comment on above: Order Comment: Speci men Type: BLOOD SPECIMEN Ordering Facility: [facility] Address: [address] [place] [address] Performed By: #### 5 7021-8 #### [facility] CLIA [id number] [address] [place] [address] 52977 Protein [Mass/Vol] 6.3 g/dL Normal 6.3-8.0 [facility] Comment on above: Order Comment: Speci men Type: BLOOD SPECIMEN Ordering Facility: [facility] Address: [address] [place] [address] Performed By: #### 5 7021-8 #### [facility] CLIA [id number] [address] [place] [address] 08802 Sodium [Moles/Vol] 139 mmol/L Normal 136-144 [facility] Comment on above: Order Comment: Speci men Type: BLOOD SPECIMEN Ordering Facility: [facility] Address: [address] [place] [address] Performed By: #### 5 7021-8 #### [facility] CLIA [id number] [address] [place] [address] 13522 Urea nitrogen [Mass/Vol] 19 mg/dL Normal 9-24 [facility] Comment on above: Order Comment: Speci men Type: BLOOD SPECIMEN Ordering Facility: [facility] Address: [address] [place] [address] Performed By: #### 5 7021-8 #### [facility] CLIA [id number] [address] [place] [address] PSA [facility] 05-03-2024 Prostate specific Ag [Mass/Vol] 0.18 ng/mL Normal <2.60 [facility] Comment on above: Order Comment: Speci men Type: BLOOD SPECIMEN Ordering Facility: [facility] Address: [address] [place] [address] [place] [address] Result Comment: Tota l PSA test methodology used is the Electrochemiluminescence Immunoassay by [employer]. Total PSA values by differing methodologies cannot be interchanged. Performed By: #### 5 7021-8 #### [facility] CLIA [id number] [address] [place] [address] Ambulatory Visit Summaryon 1 Ambulatory Visit Summary [...] mg Tab) ipratropium nasal (ipratropium Nasal 0.06% [place]) metformin (metformin 1000 mg oral tablet) metoprolol [...] Anthony SCRUGGS MD Where: [facility] [address] [facility] [place] [address] [place] [address]- You Need to Schedule the Following Appointments Follow Up with Anthony SCRUGGS MD, URL When: Where: [address] [place] [address] [place] [address]- Medications What How Much When Instructions Unchanged [...] concerns Unchanged ipratropium nasal (ipratropium Nasal 0.06% [place]) Contact prescribing physician if questions or concerns [...] Trouble st (more content not included)... Normal [facility] Urology Office/Clinic Noteon 04-19-2024 Urology [...] 0.23 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 [place] 9 (5+4), pT2b, N0, Mo. Last Lupron administered 04/2022. Taking Xtandi 160mg qd and Xgeva q3mos. Last seen by [facility] oncology 02/02/24. Plan at that time was [...] Information KAEL JAMES, Anthony Lee, URL [address] [id number]- Additional Instructions: 6 mos w/ PSA and [...] hydrochlorothiazide-lisinop ril (more content not included)... Normal [facility] Comment on above: Result Comment: Elec tronically Signed By: Anthony SCRUGGS MD\.br\Date and Time Signed: 04/19/24 08:47 EDT\.br\Electronically Co-Signed By: Olamide Ureña\.br\Date and Time Co-Signed: 04/19/24 08:45 EDT Office Visiton 03-29-2024 Follow-up visit [id number] Pablo Felix 1945 M Date Provider Department Center 03/29/2024 LORA BANUELOS CARD [facility] Family History Problem Relation Age of Onset Coronary artery disease Father Family Status - Relation Status Age at Father Level of Service:41846 [place] OFFICE/OUTPATIENT ESTABLISHED MOD MDM 30 MIN Normal [facility] CNOVSPon 02-02-2024 CNOVSP Visit (SP) Office (H EMASA) PABLO FELIX ([id number]) 1945 M Date Time Provider Department 02/02/24 11:30 AM LYNNE ALARCON During your visit today, we recorded the following information about you: Temperature Pulse Respiration Blood pressure 97.3 degrees 52/minute 16/minute 137/54 Weight Height 93.7 kg 1.676 m Lynne Alarcon APRN.DIRECTOR OF MARKETING 02/02/2024 11:37 AM Signed PATIENT NAME: Pablo Felix DATE: February 02, 2024 PRIMARY CARE PHYSICIAN: Dr. Jamar Fall OTHER PHYSICIANS: Dr. Anthony Scruggs, Dr. Khan, [facility] Cardiology This note was copied from [...] mg 24 hr tablet Take by mouth. 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 Left base margin positive for neoplasm. Seminal vesicles with no diagnostic abnormality. 2 resected lymph nodes negative for neoplasm. LABS: Hemoglobin (g/dL) Date [place] (more content not included)... Normal [facility] Basophils Auto (Bld) [#/Vol] on 01-25-2024 Basophils (Bld) [#/Vol] 0.04 10*3/uL <0.11 [facility] Basophils/100 WBC Auto (Bld) on 01-25-2024 Basophils/100 WBC (Bld) 0.6 % [facility] Blood manual differential co mment interpretation narrativeon 01-25-2024 Manual differential comment [place] (Bld) [Interp] Auto [facility] CBC W Auto Differential pane l (Bld)on 01-25-2024 Basophils (Bld) [#/Vol] 0.04 10*3/uL Normal <0.11 [facility] Comment on above: Order Comment: Speci men Type: BLOOD SPECIMEN Ordering Facility: [facility] Address: [address] [place] [address] Performed By: #### 5 7021-8 #### [facility] CLIA [id number] [address] [place] [address] 20230 Basophils/100 WBC (Bld) 0.6 % Normal [facility] Comment on above: Order Comment: Speci men Type: BLOOD SPECIMEN Ordering Facility: [facility] Address: [address] [place] [address] Performed By: #### 5 7021-8 #### [facility] CLIA [id number] [address] [place] [address] 60348 Differential cell count method Nom (Bld) Auto Normal [facility] Comment on above: Order Comment: Speci men Type: BLOOD SPECIMEN Ordering Facility: [facility] Address: [address] [place] [address] Performed By: #### 5 7021-8 #### [facility] CLIA [id number] [address] [place] [address] 77616 Eosinophils (Bld) [#/Vol] 0.40 10*3/uL Normal <0.46 [facility] Comment on above: Order Comment: Speci men Type: BLOOD SPECIMEN Ordering Facility: [facility] Address: [address] [place] [address] Performed By: #### 5 7021-8 #### [facility] CLIA [id number] [address] [place] [address] 54638 Eosinophils/100 WBC (Bld) 5.9 % Normal [facility] Comment on above: Order Comment: Speci men Type: BLOOD SPECIMEN Ordering Facility: [facility] Address: [address] [place] [address] Performed By: #### 5 7021-8 #### [facility] CLIA [id number] [address] [place] [address] 16555 Erythrocyte distribution width (RBC) [Ratio] 12.7 % Normal 11.5-15.0 [facility] Comment on above: Order Comment: Speci men Type: BLOOD SPECIMEN Ordering Facility: [facility] Address: [address] [place] [address] Performed By: #### 5 7021-8 #### [facility] CLIA [id number] [address] [place] [address] 33924 Hematocrit (Bld) [Volume fraction] 34.6 % Low 39.0-51.0 [facility] Comment on above: Order Comment: Speci men Type: BLOOD SPECIMEN Ordering Facility: [facility] Address: [address] [place] [address] Performed By: #### 5 7021-8 #### [facility] CLIA [id number] [address] [place] [address] 42418 Hemoglobin (Bld) [Mass/Vol] 11.8 g/dL Low 13.0-17.0 [facility] Comment on above: Order Comment: Speci men Type: BLOOD SPECIMEN Ordering Facility: [facility] Address: [address] [place] [address] Performed By: #### 5 7021-8 #### [facility] CLIA [id number] [address] [place] [address] 45481 Immature granulocytes (Bld) [#/Vol] 0.07 10*3/uL Normal <0.10 [facility] Comment on above: Order Comment: Speci men Type: BLOOD SPECIMEN Ordering Facility: [facility] Address: [address] [place] [address] Performed By: #### 5 7021-8 #### [facility] CLIA [id number] [address] [place] [address] 85248 Immature granulocytes/100 WBC (Bld) 1.0 % Normal [facility] Comment on above: Order Comment: Speci men Type: BLOOD SPECIMEN Ordering Facility: [facility] Address: [address] [place] [address] Performed By: #### 5 7021-8 #### [facility] CLIA [id number] [address] [place] [address] 63394 Lymphocytes (Bld) [#/Vol] 2.16 10*3/uL Normal 1.00-4.00 [facility] Comment on above: Order Comment: Speci men Type: BLOOD SPECIMEN Ordering Facility: [facility] Address: [address] [place] [address] Performed By: #### 5 7021-8 #### [facility] CLIA [id number] [address] [place] [address] 27941 Lymphocytes/100 WBC (Bld) 31.8 % Normal [facility] Comment on above: Order Comment: Speci men Type: BLOOD SPECIMEN Ordering Facility: [facility] Address: [address] [place] [address] Performed By: #### 5 7021-8 #### [facility] CLIA [id number] [address] [place] [address] 64752 MCH (RBC) [Entitic mass] 32.2 pg Normal 26.0-34.0 [facility] Comment on above: Order Comment: Speci men Type: BLOOD SPECIMEN Ordering Facility: [facility] Address: [address] [place] [address] 29[address] Performed By: #### 5 7021-8 #### [facility] CLIA [id number] [address] [place] [address] 22119 MCHC (RBC) [Mass/Vol] 34.1 g/dL Normal 30.5-36.0 [facility] Comment on above: Order Comment: Speci men Type: BLOOD SPECIMEN Ordering Facility: [facility] Address: [address] [place] [address] 31018 Performed By: #### 5 7021-8 #### [facility] CLIA [id number] [address] [place] [address] 60240 MCV (RBC) [Entitic vol] 94.3 fL Normal 80.0-100.0 [facility] Comment on above: Order Comment: Speci men Type: BLOOD SPECIMEN Ordering Facility: [facility] Address: [address] [place] [address] Performed By: #### 5 7021-8 #### [facility] CLIA [id number] [address] [place] [address] 48016 Monocytes (Bld) [#/Vol] 0.60 10*3/uL Normal <0.87 [facility] Comment on above: Order Comment: Speci men Type: BLOOD SPECIMEN Ordering Facility: [facility] Address: [address] [place] [address] Performed By: #### 5 7021-8 #### [facility] CLIA [id number] [address] [place] [address] 64119 Monocytes/100 WBC (Bld) 8.8 % Normal [facility] Comment on above: Order Comment: Speci men Type: BLOOD SPECIMEN Ordering Facility: [facility] Address: [address] [place] [address] Performed By: #### 5 7021-8 #### [facility] CLIA [id number] [address] [place] [address] 13960 Neutrophils (Bld) [#/Vol] 3.53 10*3/uL Normal 1.45-7.50 [facility] Comment on above: Order Comment: Speci men Type: BLOOD SPECIMEN Ordering Facility: [facility] Address: [address] [place] [address] Performed By: #### 5 7021-8 #### [facility] CLIA [id number] [address] [place] [address] 41295 Neutrophils/100 WBC (Bld) 51.9 % Normal [facility] Comment on above: Order Comment: Speci men Type: BLOOD SPECIMEN Ordering Facility: [facility] Address: [address] [place] [address] 37882 Performed By: #### 5 7021-8 #### [facility] CLIA [id number] [address] [place] [address] Nucleated RBC (Bld) [#/Vol] 10*3/uL Normal <0.01 [facility] Comment on above: Order Comment: Speci men Type: BLOOD SPECIMEN Ordering Facility: [facility] Address: [address] [place] [address] Performed By: #### 5 7021-8 #### [facility] CLIA [id number] [address] [place] [address] Nucleated RBC/100 WBC (Bld) [Ratio] 0.0 /100 WBC Normal [facility] Comment on above: Order Comment: Speci men Type: BLOOD SPECIMEN Ordering Facility: [facility] Address: [address] [place] [address] Performed By: #### 5 7021-8 #### [facility] CLIA [id number] [address] [place] [address] 54467 Platelet mean volume (Bld) [Entitic vol] 10.3 fL Normal 9.0-12.7 [facility] Comment on above: Order Comment: Speci men Type: BLOOD SPECIMEN Ordering Facility: [facility] Address: [address] [place] [address] Performed By: #### 5 7021-8 #### [facility] CLIA [id number] [address] [place] [address] 90491 Platelets (Bld) [#/Vol] 184 10*3/uL Normal 150-400 [facility] Comment on above: Order Comment: Speci men Type: BLOOD SPECIMEN Ordering Facility: [facility] Address: [address] [place] [address] 39714 Performed By: #### 5 7021-8 #### [facility] CLIA [id number] [address] [place] [address] RBC (Bld) [#/Vol] 3.67 10*6/uL Low 4.20-6.00 [facility] Comment on above: Order Comment: Speci men Type: BLOOD SPECIMEN Ordering Facility: [facility] Address: [address] [place] [address] 76774 Performed By: #### 5 7021-8 #### [facility] CLIA [id number] [address] [place] [address] 38706 WBC (Bld) [#/Vol] 6.80 10*3/uL Normal 3.70-11.00 [facility] Comment on above: Order Comment: Speci men Type: BLOOD SPECIMEN Ordering Facility: [facility] Address: [address] [place], [place] [address] Performed By: #### 5 7021-8 #### [facility] CLIA [id number] [address] [place] [address] 49294 Comprehensive metabolic 2000 panelon 01-25-2024 Albumin [Mass/Vol] 4.0 g/dL Normal 3.9-4.9 [facility] Comment on above: Order Comment: Speci men Type: BLOOD SPECIMEN Ordering Facility: [facility] Address: [address] [place] [address] 86659 Performed By: #### 5 7021-8 #### [facility] CLIA [id number] [address] [place] [address] 17609 ALP [Catalytic activity/Vol] 74 U/L Normal 38-113 [facility] Comment on above: Order Comment: Speci men Type: BLOOD SPECIMEN Ordering Facility: [facility] Address: [address] [place] [address] 24433 Performed By: #### 5 7021-8 #### [facility] CLIA [id number] [address] [place] [address] 95255 ALT [Catalytic activity/Vol] 18 U/L Normal 10-54 [facility] Comment on above: Order Comment: Speci men Type: BLOOD SPECIMEN Ordering Facility: [facility] Address: [address] [place] [address] 15542 Performed By: #### 5 7021-8 #### [facility] CLIA [id number] [address] [place] [address] [place] [address] Anion gap [Moles/Vol] 9 mmol/L Normal 8-15 [facility] Comment on above: Order Comment: Speci men Type: BLOOD SPECIMEN Ordering Facility: [facility] Address: [address] [place] [address] 18019 Performed By: #### 5 7021-8 #### [facility] CLIA [id number] [address] [place] [address] 05467 AST [Catalytic activity/Vol] 19 U/L Normal 14-40 [facility] Comment on above: Order Comment: Speci men Type: BLOOD SPECIMEN Ordering Facility: [facility] Address: [address] [place] [address] 91200 Performed By: #### 5 7021-8 #### [facility] CLIA [id number] [address] [place] [address] 31789 Bilirubin [Mass/Vol] 0.7 mg/dL Normal 0.2-1.3 [facility] Comment on above: Order Comment: Speci men Type: BLOOD SPECIMEN Ordering Facility: [facility] Address: [address] [place] [address] 32960 Performed By: #### 5 7021-8 #### [facility] CLIA [id number] [address] [place] [address] 95737 Calcium [Mass/Vol] 9.9 mg/dL Normal 8.5-10.2 [facility] Comment on above: Order Comment: Speci men Type: BLOOD SPECIMEN Ordering Facility: [facility] Address: [address] [place] [address] 6[address]13 Performed By: #### 5 7021-8 #### [facility] CLIA [id number] [address] [place] [address] 95330 Chloride [Moles/Vol] 103 mmol/L Normal 98-107 [facility] Comment on above: Order Comment: Speci men Type: BLOOD SPECIMEN Ordering Facility: [facility] Address: [address] [place] [address] 70908 Performed By: #### 5 7021-8 #### [facility] CLIA [id number] [address] [place] [address] CO2 [Moles/Vol] 25 mmol/L Normal 22-30 [facility] Comment on above: Order Comment: Speci men Type: BLOOD SPECIMEN Ordering Facility: [facility] Address: [address] [place] [address] Performed By: #### 5 7021-8 #### [facility] CLIA [id number] [address] [place] [address] 71212 Creatinine [Mass/Vol] 0.79 mg/dL Normal 0.73-1.22 [facility] Comment on above: Order Comment: Speci men Type: BLOOD SPECIMEN Ordering Facility: [facility] Address: [address] [place] [address] Performed By: #### 5 7021-8 #### [facility] CLIA [id number] [address] [place] [address] 27271 Creatinine and Glomerular filtration rate.predicted panel (S/P/Bld) 91 mL/min/1.73m??? Normal >=60 [facility] Comment on above: Order Comment: Speci men Type: BLOOD SPECIMEN Ordering Facility: [facility] Address: [address] [place] [address] Result Comment: Renae mated Glomerular Filtration Rate [...] GFR. Performed By: #### 5 7021-8 #### [facility] CLIA [id number] [address] [place] [address] 77546 Glucose [Mass/Vol] 112 mg/dL High 74-99 [facility] Comment on above: Order Comment: Speci men Type: BLOOD SPECIMEN Ordering Facility: [facility] Address: [address] [place] [address] Result Comment: The [place] Diabetes Association (ADA) provides guidance for cutoff [...] Standards of Medical Care in Diabetes 2016, [place] [employer]. Diabetes Care. 2016.39(Suppl 1). Performed By: #### 5 7021-8 #### [facility] CLIA [id number] [address] [place] [address] 02399 Potassium [Moles/Vol] 5.2 mmol/L High 3.7-5.1 [facility] Comment on above: Order Comment: Speci men Type: BLOOD SPECIMEN Ordering Facility: [facility] Address: [address] [place] [address] Performed By: #### 5 7021-8 #### [facility] CLIA [id number] [address] [place] [address] 46088 Protein [Mass/Vol] 6.6 g/dL Normal 6.3-8.0 [facility] Comment on above: Order Comment: Speci men Type: BLOOD SPECIMEN Ordering Facility: [facility] Address: [address] [place] [address] Performed By: #### 5 7021-8 #### [facility] CLIA [id number] [address] [place] [address] 65551 Sodium [Moles/Vol] 137 mmol/L Normal 136-144 [facility] Comment on above: Order Comment: Speci men Type: BLOOD SPECIMEN Ordering Facility: [facility] Address: [address] [place] [address] Performed By: #### 5 7021-8 #### [facility] CLIA [id number] [address] [place] [address] 54510 Urea nitrogen [Mass/Vol] 15 mg/dL Normal 9-24 [facility] Comment on above: Order Comment: Speci men Type: BLOOD SPECIMEN Ordering Facility: [facility] Address: [address] [place] [address] Performed By: #### 5 7021-8 #### [facility] CLIA [id number] [address] [place] [address] Eosinophils/100 WBC Auto (Bl d)on 01-25-2024 Eosinophils/100 WBC (Bld) 5.9 % [facility] Erythrocyte distribution wid th Auto (RBC) [Ratio]on 01-25-2024 Erythrocyte distribution width (RBC) [Ratio] 12.7 % 11.5-15.0 [facility] Hematocrit Auto (Bld) [Volum e fraction]on 01-25-2024 Hematocrit (Bld) [Volume fraction] 34.6 % Low 39.0-51.0 [facility] Hemoglobin [Mass/volume] in Bloodon 01-25-2024 Hemoglobin (Bld) [Mass/Vol] 11.8 g/dL Low 13.0-17.0 [facility] Laboratory - Chemistry and C hemistry - challengeon 01-25-2024 Albumin [Mass/Vol] 4.0 g/dL 3.9-4.9 [facility] ALP [Catalytic activity/Vol] 74 U/L 38-113 [facility] ALT [Catalytic activity/Vol] 18 U/L 10-54 [facility] AST [Catalytic activity/Vol] 19 U/L 14-40 [facility] Bilirubin [Mass/Vol] 0.7 mg/dL 0.2-1.3 [facility] Calcium [Mass/Vol] 9.9 mg/dL 8.5-10.2 [facility] Chloride [Moles/Vol] 103 mmol/L 98-107 [facility] CO2 [Moles/Vol] 25 mmol/L 22-30 [facility] Creatinine [Mass/Vol] 0.79 mg/dL 0.73-1.22 [facility] Glucose [Mass/Vol] 112 mg/dL High 74-99 [facility] Comment on above: The [place] Diabete s Association (ADA) provides guidance for [...] Standards of Medical Care in Diabetes 2016, [place] [employer]. Diabetes Care. 2016.39(Suppl 1). Potassium [Moles/Vol] 5.2 mmol/L High 3.7-5.1 [facility] Sodium [Moles/Vol] 137 mmol/L 136-144 [facility] Urea nitrogen [Mass/Vol] 15 mg/dL 04-09 [facility] Laboratory - Hematology and Cell countson 01-25-2024 Eosinophils (Bld) [#/Vol] 0.40 10*3/uL <0.46 [facility] Immature granulocytes (Bld) [#/Vol] 0.07 10*3/uL <0.10 [facility] Immature granulocytes/100 WBC (Bld) 1.0 % [facility] Leukocytes [#/volume] correc jomar for nucleated erythrocytes in Blood by Automated counon 01-25-2024 WBC corrected for nucl RBC Auto (Bld) [#/Vol] 6.80 k/uL 3.70-11.00 [facility] Lymphocytes Auto (Bld) [#/Vo l]on 01-25-2024 Lymphocytes (Bld) [#/Vol] 2.16 10*3/uL 1.00-4.00 [facility] Lymphocytes/100 WBC Auto (Bl d)on 01-25-2024 Lymphocytes/100 WBC (Bld) 31.8 % [facility] MCH Auto (RBC) [Entitic mass ]on 01-25-2024 MCH (RBC) [Entitic mass] 32.2 pg 26.0-34.0 [facility] MCHC Auto (RBC) [Mass/Vol]on 01-25-2024 MCHC (RBC) [Mass/Vol] 34.1 g/dL 30.5-36.0 [facility] MCV Auto (RBC) [Entitic vol] on 01-25-2024 MCV (RBC) [Entitic vol] 94.3 fL 80.0-100.0 [facility] Monocytes Auto (Bld) [#/Vol] on 01-25-2024 Monocytes (Bld) [#/Vol] 0.60 10*3/uL <0.87 [facility] Monocytes/100 WBC Auto (Bld) on 01-25-2024 Monocytes/100 WBC (Bld) 8.8 % [facility] Neutrophils Auto (Bld) [#/Vo l]on 01-25-2024 Neutrophils (Bld) [#/Vol] 3.53 10*3/uL 1.45-7.50 [facility] Neutrophils/100 WBC Auto (Bl d)on 01-25-2024 Neutrophils/100 WBC (Bld) 51.9 % [facility] No Panel Informationon 01-24 Estimated GFR (CKD-EPI) 91 mL/min/1.73m??? >=60 [facility] Comment on above: Estimated Glomerular Filtration [...] GFR. Prostate Specific Antigen 0.15 ng/mL <2.60 [facility] Comment on above: Total PSA test metho dology used is the Electrochemiluminescence Immunoassay by [employer]. Total PSA values by differing methodologies cannot be interchanged. Nucleated RBC Auto (Bld) [#/ Vol]on 01-25-2024 Nucleated RBC (Bld) [#/Vol] 10*3/uL <0.01 [facility] Nucleated erythrocytes [Pres ence] in Blood by Automated counton 01-25-2024 Nucleated RBC Auto Ql (Bld) 0.0 /100{WBC} [facility] PSA SerPl-mCncon 01-25-2024 Prostate specific Ag [Mass/Vol] 0.15 ng/mL Normal <2.60 [facility] Comment on above: Order Comment: Speci men Type: BLOOD SPECIMEN Ordering Facility: [facility] Address: [place] [address] Result Comment: Tota l PSA test methodology used is the Electrochemiluminescence Immunoassay by [employer]. Total PSA values by differing methodologies cannot be interchanged. Performed By: #### 5 7021-8 #### [facility] CLIA [id number] [address] [place] [address] 38668 Platelet mean volume Auto (B ld) [Entitic vol]on 01-25-2024 Platelet mean volume (Bld) [Entitic vol] 10.3 fL 9.0-12.7 [facility] Platelets Auto (Bld) [#/Vol] on 01-25-2024 Platelets (Bld) [#/Vol] 184 10*3/uL 150-400 [facility] Protein [Mass/volume] in Ser um or Plasmaon 01-25-2024 Protein [Mass/Vol] 6.6 g/dL 6.3-8.0 [facility] RBC Auto (Bld) [#/Vol]on RBC (Bld) [#/Vol] 3.67 10*6/uL Low 4.20-6.00 [facility] Serum or plasma anion gap de terminationon 01-25-2024 Anion gap [Moles/Vol] 9 mmol/L 8-15 [facility] Consultation Noteon 11-07-19 24 Consultation Note [id number]#1.00TIFF [facility] CNOVSPon 11-02-2023 CNOVSP Visit (SP) Office (Kiara MUELLER) PABLO FELIX ([id number]) 1945 M Date Time Provider Department 11/02/23 9:30 AM CHRISTO HOWARD During your visit today, we recorded the following information about you: Temperature Pulse Respiration Blood pressure 97.8 degrees 56/minute 16/minute 123/44 Weight Height 92.9 kg 1.676 m Christo Howard APRN.DIRECTOR OF MARKETING 11/03/2023 11:11 AM Signed PATIENT NAME: Pablo Felix DATE: 11/02/2023 PRIMARY CARE PHYSICIAN: Dr. Jamar Fall OTHER PHYSICIANS: Dr. Anthony Scruggs, Dr. Khan, [facility] Cardiology Portions of this encounter note [...] mg 24 hr tablet Take by mouth. 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 Left base margin positive for neoplasm. Seminal vesicles with no diagnostic abnormality. 2 resected lymph nodes negative for neoplasm. LABS: Hem (more content not included)... Normal [facility] Basophils Auto (Bld) [#/Vol] on 10-30-2023 Basophils (Bld) [#/Vol] 0.04 10*3/uL <0.11 [facility] Basophils/100 WBC Auto (Bld) on 10-30-2023 Basophils/100 WBC (Bld) 0.5 % [facility] Blood manual differential co mment interpretation narrativeon 10-30-2023 Manual differential comment [place] (Bld) [Interp] Auto [facility] CBC W Auto Differential pane l (Bld)on 10-30-2023 Basophils (Bld) [#/Vol] 0.04 10*3/uL Normal <0.11 [facility] Comment on above: Order Comment: Speci men Type: BLOOD SPECIMEN Ordering Facility: [facility] Address: [address] [place] [address] Performed By: #### 5 7021-8 #### [facility] CLIA [id number] [address] [place] [address] 97686 Basophils/100 WBC (Bld) 0.5 % Normal [facility] Comment on above: Order Comment: Speci men Type: BLOOD SPECIMEN Ordering Facility: [facility] Address: [address] [place] [address] Performed By: #### 5 7021-8 #### [facility] CLIA [id number] [address] [place] [address] 01432 Differential cell count method Nom (Bld) Auto Normal [facility] Comment on above: Order Comment: Speci men Type: BLOOD SPECIMEN Ordering Facility: [facility] Address: [address] [place] [address] Performed By: #### 5 7021-8 #### [facility] CLIA [id number] [address] [place] [address] Eosinophils (Bld) [#/Vol] 0.35 10*3/uL Normal <0.46 [facility] Comment on above: Order Comment: Speci men Type: BLOOD SPECIMEN Ordering Facility: [facility] Address: [address] [place] [address] Performed By: #### 5 7021-8 #### [facility] CLIA [id number] [address] [place] [address] 96347 Eosinophils/100 WBC (Bld) 4.3 % Normal [facility] Comment on above: Order Comment: Speci men Type: BLOOD SPECIMEN Ordering Facility: [facility] Address: [address] [place] [address] Performed By: #### 5 7021-8 #### [facility] CLIA [id number] [address] [place] [address] 13484 Erythrocyte distribution width (RBC) [Ratio] 12.8 % Normal 11.5-15.0 [facility] Comment on above: Order Comment: Speci men Type: BLOOD SPECIMEN Ordering Facility: [facility] Address: [address] [place] [address] Performed By: #### 5 7021-8 #### [facility] CLIA [id number] [address] [place] [address] [id number] Hematocrit (Bld) [Volume fraction] 35.8 % Low 39.0-51.0 [facility] Comment on above: Order Comment: Speci men Type: BLOOD SPECIMEN Ordering Facility: [facility] Address: [address] [place] [id number] Performed By: #### 5 7021-8 #### [facility] CLIA [id number] [address] [place] [address] 23293 Hemoglobin (Bld) [Mass/Vol] 12.2 g/dL Low 13.0-17.0 [facility] Comment on above: Order Comment: Speci men Type: BLOOD SPECIMEN Ordering Facility: [facility] Address: [address] [place] [address] Performed By: #### 5 7021-8 #### [facility] CLIA [id number] [address] [place] [address] 02819 Immature granulocytes (Bld) [#/Vol] 0.04 10*3/uL Normal <0.10 [facility] Comment on above: Order Comment: Speci men Type: BLOOD SPECIMEN Ordering Facility: [facility] Address: [address] [place] [address] Performed By: #### 5 7021-8 #### [facility] CLIA [id number] [address] [place] [address] 99207 Immature granulocytes/100 WBC (Bld) 0.5 % Normal [facility] Comment on above: Order Comment: Speci men Type: BLOOD SPECIMEN Ordering Facility: [facility] Address: [address] [place] [address] Performed By: #### 5 7021-8 #### [facility] CLIA [id number] [address] [place] [address] 03998 Lymphocytes (Bld) [#/Vol] 1.36 10*3/uL Normal 1.00-4.00 [facility] Comment on above: Order Comment: Speci men Type: BLOOD SPECIMEN Ordering Facility: [facility] Address: [address] [place] [address] Performed By: #### 5 7021-8 #### [facility] CLIA [id number] [address] [place] [address] 97276 Lymphocytes/100 WBC (Bld) 16.6 % Normal [facility] Comment on above: Order Comment: Speci men Type: BLOOD SPECIMEN Ordering Facility: [facility] Address: [address] [place] [address] Performed By: #### 5 7021-8 #### [facility] CLIA [id number] [address] [place] [address] 03460 MCH (RBC) [Entitic mass] 31.3 pg Normal 26.0-34.0 [facility] Comment on above: Order Comment: Speci men Type: BLOOD SPECIMEN Ordering Facility: [facility] Address: [address] [place] [address] Performed By: #### 5 7021-8 #### [facility] CLIA [id number] [address] [place] [address] 98301 MCHC (RBC) [Mass/Vol] 34.1 g/dL Normal 30.5-36.0 [facility] Comment on above: Order Comment: Speci men Type: BLOOD SPECIMEN Ordering Facility: [facility] Address: [address] [place] [address] Performed By: #### 5 7021-8 #### [facility] CLIA [id number] [address] [place] [address] 90430 MCV (RBC) [Entitic vol] 91.8 fL Normal 80.0-100.0 [facility] Comment on above: Order Comment: Speci men Type: BLOOD SPECIMEN Ordering Facility: [facility] Address: [address] [place] [address] Performed By: #### 5 7021-8 #### [facility] CLIA [id number] [address] [place] [address] 18521 Monocytes (Bld) [#/Vol] 0.62 10*3/uL Normal <0.87 [facility] Comment on above: Order Comment: Speci men Type: BLOOD SPECIMEN Ordering Facility: [facility] Address: [address] [place] [address] Performed By: #### 5 7021-8 #### [facility] CLIA [id number] [address] [place] [address] 18482 Monocytes/100 WBC (Bld) 7.6 % Normal [facility] Comment on above: Order Comment: Speci men Type: BLOOD SPECIMEN Ordering Facility: [facility] Address: [address] [place] [address] Performed By: #### 5 7021-8 #### [facility] CLIA [id number] [address] [place] [address] 94051 Neutrophils (Bld) [#/Vol] 5.78 10*3/uL Normal 1.45-7.50 [facility] Comment on above: Order Comment: Speci men Type: BLOOD SPECIMEN Ordering Facility: [facility] Address: [address] [place] [address] Performed By: #### 5 7021-8 #### [facility] CLIA [id number] [address] [place] [address] 03760 Neutrophils/100 WBC (Bld) 70.5 % Normal [facility] Comment on above: Order Comment: Speci men Type: BLOOD SPECIMEN Ordering Facility: [facility] Address: [address] [place] [address] Performed By: #### 5 7021-8 #### [facility] CLIA [id number] [address] [place] [address] 05629 Nucleated RBC (Bld) [#/Vol] 10*3/uL Normal <0.01 [facility] Comment on above: Order Comment: Speci men Type: BLOOD SPECIMEN Ordering Facility: [facility] Address: [address] [place] [address] Performed By: #### 5 7021-8 #### [facility] CLIA [id number] [address] [place] [address] 77874 Nucleated RBC/100 WBC (Bld) [Ratio] 0.0 /100 WBC Normal [facility] Comment on above: Order Comment: Speci men Type: BLOOD SPECIMEN Ordering Facility: [facility] Address: [address] [place] [address] Performed By: #### 5 7021-8 #### [facility] CLIA [id number] [address] [place] [address] 15845 Platelet mean volume (Bld) [Entitic vol] 9.5 fL Normal 9.0-12.7 [facility] Comment on above: Order Comment: Speci men Type: BLOOD SPECIMEN Ordering Facility: [facility] Address: [address] [place] [address] Performed By: #### 5 7021-8 #### [facility] CLIA [id number] [address] [place] [address] Platelets (Bld) [#/Vol] 192 10*3/uL Normal 150-400 [facility] Comment on above: Order Comment: Speci men Type: BLOOD SPECIMEN Ordering Facility: [facility] Address: [address] [place] [address] Performed By: #### 5 7021-8 #### [facility] CLIA [id number] [address] [place] [address] 96777 RBC (Bld) [#/Vol] 3.90 10*6/uL Low 4.20-6.00 [facility] Comment on above: Order Comment: Speci men Type: BLOOD SPECIMEN Ordering Facility: [facility] Address: [address] [place] [address] Performed By: #### 5 7021-8 #### [facility] CLIA [id number] [address] [place] [address] 02464 WBC (Bld) [#/Vol] 8.19 10*3/uL Normal 3.70-11.00 [facility] Comment on above: Order Comment: Speci men Type: BLOOD SPECIMEN Ordering Facility: [facility] Address: [address] [place] [address] Performed By: #### 5 7021-8 #### [facility] CLIA [id number] [address] [place] [address] 76915 Comprehensive metabolic 2000 panelon 10-30-2023 Albumin [Mass/Vol] 4.1 g/dL Normal 3.9-4.9 [facility] Comment on above: Order Comment: Speci men Type: BLOOD SPECIMEN Ordering Facility: [facility] Address: [address] [place] [address] Performed By: #### 5 7021-8 #### [facility] CLIA [id number] [address] [place] [address] 12073 ALP [Catalytic activity/Vol] 75 U/L Normal 38-113 [facility] Comment on above: Order Comment: Speci men Type: BLOOD SPECIMEN Ordering Facility: [facility] Address: [address] [place] [address] Performed By: #### 5 7021-8 #### [facility] CLIA [id number] [address] [place] [address] ALT [Catalytic activity/Vol] 16 U/L Normal 10-54 [facility] Comment on above: Order Comment: Speci men Type: BLOOD SPECIMEN Ordering Facility: [facility] Address: [address] [place] [id number] Performed By: #### 5 7021-8 #### [facility] CLIA [id number] [address] [place] [address] 42190 Anion gap [Moles/Vol] 13 mmol/L Normal 9-18 [facility] Comment on above: Order Comment: Speci men Type: BLOOD SPECIMEN Ordering Facility: [facility] Address: [address] [place] [address] Performed By: #### 5 7021-8 #### [facility] CLIA [id number] [address] [place] [address] 01259 AST [Catalytic activity/Vol] 16 U/L Normal 14-40 [facility] Comment on above: Order Comment: Speci men Type: BLOOD SPECIMEN Ordering Facility: [facility] Address: [facility] [place] [address] Performed By: #### 5 7021-8 #### [facility] CLIA [id number] [address] [place] [address] 10176 Bilirubin [Mass/Vol] 0.7 mg/dL Normal 0.2-1.3 [facility] Comment on above: Order Comment: Speci men Type: BLOOD SPECIMEN Ordering Facility: [facility] Address: [address] [place] [address] Performed By: #### 5 7021-8 #### [facility] CLIA [id number] [address] [place] [address] 02431 Calcium [Mass/Vol] 9.8 mg/dL Normal 8.5-10.2 [facility] Comment on above: Order Comment: Speci men Type: BLOOD SPECIMEN Ordering Facility: [facility] Address: [address] [place] [address]272 Performed By: #### 5 7021-8 #### [facility] CLIA [id number] [address] [place] [address] 89799 Chloride [Moles/Vol] 103 mmol/L Normal 97-105 [facility] Comment on above: Order Comment: Speci men Type: BLOOD SPECIMEN Ordering Facility: [facility] Address: [address] [place] [address] Performed By: #### 5 7021-8 #### [facility] CLIA [id number] [address] [place] [address] 17080 CO2 [Moles/Vol] 24 mmol/L Normal 22-30 [facility] Comment on above: Order Comment: Speci men Type: BLOOD SPECIMEN Ordering Facility: [facility] Address: [address] [place] [address] Performed By: #### 5 7021-8 #### [facility] CLIA [id number] [address] [place] [address] 46591 Creatinine [Mass/Vol] 0.88 mg/dL Normal 0.73-1.22 [facility] Comment on above: Order Comment: Speci men Type: BLOOD SPECIMEN Ordering Facility: [facility] Address: [address] [place] [address]46 Performed By: #### 5 7021-8 #### [facility] CLIA [id number] [address] [place] [address] 05621 Creatinine and Glomerular filtration rate.predicted panel (S/P/Bld) 89 mL/min/1.73m??? Normal >=60 [facility] Comment on above: Order Comment: Speci men Type: BLOOD SPECIMEN Ordering Facility: [facility] Address: [address] [place], [place] [address] Result Comment: Renae mated Glomerular Filtration Rate [...] GFR. Performed By: #### 5 7021-8 #### [facility] CLIA [id number] [address] [place] [address] 98584 Glucose [Mass/Vol] 128 mg/dL High 74-99 [facility] Comment on above: Order Comment: Nicanor camilo Type: BLOOD SPECIMEN Ordering Facility: [facility] Address: [address] [place] [address]40 Result Comment: The [place] Diabetes Association (ADA) provides guidance for cutoff [...] Standards of Medical Care in Diabetes 2016, [place] [employer]. Diabetes Care. 2016.39(Suppl 1). Performed By: #### 5 7021-8 #### [facility] CLIA [id number] [address] [place] [address] 47979 Potassium [Moles/Vol] 4.8 mmol/L Normal 3.7-5.1 [facility] Comment on above: Order Comment: Nicanor camilo Type: BLOOD SPECIMEN Ordering Facility: [facility] Address: [address] [place] [address] Performed By: #### 5 7021-8 #### [facility] CLIA [id number] [address] [place] [address] Protein [Mass/Vol] 6.5 g/dL Normal 6.3-8.0 [facility] Comment on above: Order Comment: Speci men Type: BLOOD SPECIMEN Ordering Facility: [facility] Address: [address] [place] [address] Performed By: #### 5 7021-8 #### [facility] CLIA [id number] [address] [place] [address] Sodium [Moles/Vol] 140 mmol/L Normal 136-144 [facility] Comment on above: Order Comment: Speci men Type: BLOOD SPECIMEN Ordering Facility: [facility] Address: [facility] [place] [address] Performed By: #### 5 7021-8 #### [facility] CLIA [id number] [address] [place] [address] 85924 Urea nitrogen [Mass/Vol] 18 mg/dL Normal 9-24 [facility] Comment on above: Order Comment: Speci men Type: BLOOD SPECIMEN Ordering Facility: [facility] Address: [address] [place] [address] Performed By: #### 5 7021-8 #### [facility] CLIA [id number] [address] [place] [address] 09219 Eosinophils/100 WBC Auto (Bl d)on 10-30-2023 Eosinophils/100 WBC (Bld) 4.3 % [facility] Erythrocyte distribution wid th Auto (RBC) [Ratio]on 10-30-2023 Erythrocyte distribution width (RBC) [Ratio] 12.8 % 11.5-15.0 [facility] Hematocrit Auto (Bld) [Volum e fraction]on 10-30-2023 Hematocrit (Bld) [Volume fraction] 35.8 % 39.0-51.0 [facility] Hemoglobin [Mass/volume] in Bloodon 10-30-2023 Hemoglobin (Bld) [Mass/Vol] 12.2 g/dL 13.0-17.0 [facility] Laboratory - Chemistry and C hemistry - challengeon 10-30-2023 Albumin [Mass/Vol] 4.1 g/dL 3.9-4.9 [facility] ALP [Catalytic activity/Vol] 75 U/L 38-113 [facility] ALT [Catalytic activity/Vol] 16 U/L 10-54 [facility] AST [Catalytic activity/Vol] 16 U/L 14-40 [facility] Bilirubin [Mass/Vol] 0.7 mg/dL 0.2-1.3 [facility] Calcium [Mass/Vol] 9.8 mg/dL 8.5-10.2 [facility] Chloride [Moles/Vol] 103 mmol/L 97-105 [facility] CO2 [Moles/Vol] 24 mmol/L 22-30 [facility] Creatinine [Mass/Vol] 0.88 mg/dL 0.73-1.22 [facility] Glucose [Mass/Vol] 128 mg/dL 74-99 [facility] Comment on above: The [place] Diabete s Association (ADA) provides guidance for [...] Standards of Medical Care in Diabetes 2016, [place] Diabetes [employer]. Diabetes Care. 2016.39(Suppl 1). Potassium [Moles/Vol] 4.8 mmol/L 3.7-5.1 [facility] Sodium [Moles/Vol] 140 mmol/L 136-144 [facility] Urea nitrogen [Mass/Vol] 18 mg/dL 9-24 [facility] Laboratory - Hematology and Cell countson 10-30-2023 Eosinophils (Bld) [#/Vol] 0.35 10*3/uL <0.46 [facility] Immature granulocytes (Bld) [#/Vol] 0.04 10*3/uL <0.10 [facility] Immature granulocytes/100 WBC (Bld) 0.5 % [facility] Leukocytes [#/volume] correc jomar for nucleated erythrocytes in Blood by Automated counon 10-30-2023 WBC corrected for nucl RBC Auto (Bld) [#/Vol] 8.19 k/uL 3.70-11.00 [facility] Lymphocytes Auto (Bld) [#/Vo l]on 10-30-2023 Lymphocytes (Bld) [#/Vol] 1.36 10*3/uL 1.00-4.00 [facility] Lymphocytes/100 WBC Auto (Bl d)on 10-30-2023 Lymphocytes/100 WBC (Bld) 16.6 % [facility] MCH Auto (RBC) [Entitic mass ]on 10-30-2023 MCH (RBC) [Entitic mass] 31.3 pg 26.0-34.0 [facility] MCHC Auto (RBC) [Mass/Vol]on 10-30-2023 MCHC (RBC) [Mass/Vol] 34.1 g/dL 30.5-36.0 [facility] MCV Auto (RBC) [Entitic vol] on 10-30-2023 MCV (RBC) [Entitic vol] 91.8 fL 80.0-100.0 [facility] Monocytes Auto (Bld) [#/Vol] on 10-30-2023 Monocytes (Bld) [#/Vol] 0.62 10*3/uL <0.87 [facility] Monocytes/100 WBC Auto (Bld) on 10-30-2023 Monocytes/100 WBC (Bld) 7.6 % [facility] Neutrophils Auto (Bld) [#/Vo l]on 10-30-2023 Neutrophils (Bld) [#/Vol] 5.78 10*3/uL 1.45-7.50 [facility] Neutrophils/100 WBC Auto (Bl d)on 10-30-2023 Neutrophils/100 WBC (Bld) 70.5 % [facility] No Panel Informationon 10-29 Estimated GFR (CKD-EPI) 89 mL/min/1.73m??? >=60 [facility] Comment on above: Estimated Glomerular Filtration [...] GFR. Prostate Specific Antigen 0.16 ng/mL <2.60 [facility] Comment on above: Total PSA test metho dology used is the Electrochemiluminescence Immunoassay by [employer]. Total PSA values by differing methodologies cannot be interchanged. Testosterone Level 78 ng/dL 193-824 [facility] Comment on above: A testosterone level in the 193-320 ng/dL range with associated clinical symptoms is considered low and may indicate hypogonadism (from [facility] 2010 363:123-135). Results >320 ng/dL are considered normal.Result rechecked. Nucleated RBC Auto (Bld) [#/ Vol]on 10-30-2023 Nucleated RBC (Bld) [#/Vol] 10*3/uL <0.01 [facility] Nucleated erythrocytes [Pres ence] in Blood by Automated counton 10-30-2023 Nucleated RBC Auto Ql (Bld) 0.0 /100{WBC} [facility] PSA SerPl-mCncon 10-30-2023 Prostate specific Ag [Mass/Vol] 0.16 ng/mL Normal <2.60 [facility] Comment on above: Order Comment: Speci men Type: BLOOD SPECIMEN Ordering Facility: [facility] Address: [address] [place] [address] Result Comment: Tota l PSA test methodology used is the Electrochemiluminescence Immunoassay by [employer]. Total PSA values by differing methodologies cannot be interchanged. Performed By: #### 5 7021-8 #### [facility] CLIA [id number] [address] [place] [address] 60704 Platelet mean volume Auto (B ld) [Entitic vol]on 10-30-2023 Platelet mean volume (Bld) [Entitic vol] 9.5 fL 9.0-12.7 [facility] Platelets Auto (Bld) [#/Vol] on 10-30-2023 Platelets (Bld) [#/Vol] 192 10*3/uL 150-400 [facility] Protein [Mass/volume] in Ser um or Plasmaon 10-30-2023 Protein [Mass/Vol] 6.5 g/dL 6.3-8.0 [facility] RBC Auto (Bld) [#/Vol]on RBC (Bld) [#/Vol] 3.90 10*6/uL 4.20-6.00 [facility] Serum or plasma anion gap de terminationon 10-30-2023 Anion gap [Moles/Vol] 13 mmol/L 9-18 [facility] Testost SerPl-mCncon 024 Testosterone [Mass/Vol] 78 ng/dL Low 193-824 [facility] Comment on above: Order Comment: Speci men Type: BLOOD SPECIMEN Ordering Facility: [facility] Address: [address] [place] [address] Result Comment: A te stosterone level in the 193-320 ng/dL range with associated clinical symptoms is considered low and may indicate hypogonadism (from [facility] 2010 363:123-135). Results >320 ng/dL are considered normal. Result rechecked. Performed By: #### 5 7021-8 #### [facility] CLIA [id number] [address] [place] [address] Patient Educationon 10-20-19 24 Patient Education Oncology [...] under a microscope. This is called the [place] score and the total score can range from 6?10, indicating how likely it is that the cancer will spread (metastasize) to other parts of the body. The higher the score, the greater the likelihood that the cancer will spread. ? Telford 6 or lower: This indicates that the [...] external be (more content not included)... 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 Last Lupron [...] Information KAEL JAMES, Anthony Lee, URL [address] [id number]- Additional Instructions: 6 mos w/ PSA and [...] 1 tab(s), Oral, Daily ipratropium Nasal 0.06% [place] metformin 1000 mg oral tablet, Oral, BID metoprolol 25 mg ER Tab, 25 mg= 1 tab(s), Oral, BID Vitamin D3 Xtandi 80 mg oral tablet, Oral, Daily Allergies penicillin G benzathine (Unknown) Social History Alcohol Current, 1-2 times per year, 02/04/2019 Tobacco Never (less than 100 in lifetime) Tobacco Use:. Never Smokeless Tobacco Use:. (more content not included)... Normal [facility] Comment on above: Result Comment: Elec tronically Signed By: Anthony SCRUGGS MD\.br\Date and Time Signed: 10/20/23 09:57 EDT\.br\Electronically Co-Signed By: Olamide Ureña\.br\Date and Time Co-Signed: 10/20/23 09:55 EDT Lab Reportson 10-10-2023 Lab Reports [id number]#1.00TIFF [facility] RAD - MISCon 10-10-2023 RAD - MISC [id number]#1.00TIFF [facility] No Panel Informationon 10-08 Prostate Specific Antigen Total <0.13 ng/mL <=4.00 [facility] No Panel Informationon 08-28 [facility] Type of biopsy: schmidt ential [...] of lidocaine used: 0.5 cc [facility] Consultation Noteon 08-04-19 Consultation Note [id number]#1.00TIFF [place] [facility] CNOVSPon 08-03-2023 CNOVSP Visit (SP) Office (H EMASA) ELVIRAPABLO Lopez ([id number]) 1945 M Date Time Provider Department 08/03/23 [...] OTHER PHYSICIANS: Dr. Anthony Scruggs, Dr. Khan, [facility] Cardiology Portions of this encounter note [...] mg 24 hr tablet Take by mouth. 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 Left base margin positive for ne (more content not included)... Normal [facility] CNPNon 08-03-2023 [facility] PABLO FELIX ([id number]) 1945 M Date Time Provider Department 08/03/23 [facility] A [facility] During your visit today, we recorded the following information about you: Alexandrea Ernst 08/03/2023 9:23 AM Signed Patient needs an appointment with Dermatology for right ear lesion. Yudy/Narciso: Can you please refer patient to [facility] and follow up? Thanks! Naila Rodriguez 08/03/2023 9:51 AM Signed Yudy:Information ready for you. Keysha Neil 08/04/2023 8:05 AM Signed Records faxed to [facility] D[facility]. Naila Liao 08/07/2023 2:54 PM Signed Called [facility]. Patient is scheduled to see [facility] Long Boo on 08/28 @ 11:25. Naila Horne Pss Allergies As of Date: 08/03/2023 Noted Allergy Reaction PENICILLINS 08/06/2014 16 - Unknown SIMVASTATIN 07/05/2002 16 - Unknown Date Reviewed: 08/03/2023 Reviewed by: Katie Rosen MA - Fully Assessed Reason for Visit: Referral Information [9589] Cmt: Dermatology Prescriptions as of 08/07/2023 - [...] 24 hr tablet Take by mouth. - Dkfcbptkgsbbb-Ebztybkf-Vnmz in (MULTIVITAMIN 50 PLUS) tab Take 1 [...] Status:Closed by ALEXANDREA ERNST on 08/07/23 Normal [facility] CBC W Auto Differential pane l (Bld)on 07-27-2023 Basophils (Bld) [#/Vol] 0.05 10*3/uL Normal <0.11 [facility] Comment on above: Order Comment: Speci men Type: BLOOD SPECIMEN Ordering Facility: [facility] Address: [address] [place] [address] Performed By: #### 5 7021-8 #### [facility] CLIA [id number] [address] [place] [address] 67206 Basophils/100 WBC (Bld) 0.8 % Normal [facility] Comment on above: Order Comment: Speci men Type: BLOOD SPECIMEN Ordering Facility: [facility] Address: [address] [place] [address] Performed By: #### 5 7021-8 #### [facility] CLIA [id number] [address] [place] [address] 13634 Differential cell count method Nom (Bld) Auto Normal [facility] Comment on above: Order Comment: Speci men Type: BLOOD SPECIMEN Ordering Facility: [facility] Address: [address] [place] [address] Performed By: #### 5 7021-8 #### [facility] CLIA [id number] [address] [place] [id number] Eosinophils (Bld) [#/Vol] 0.40 10*3/uL Normal <0.46 [facility] Comment on above: Order Comment: Speci men Type: BLOOD SPECIMEN [facility] [facility] Address: [address] [place] [address] Performed By: #### 5 7021-8 #### [facility] CLIA [id number] [address] [place] [address] 09090 Eosinophils/100 WBC (Bld) 6.2 % Normal [facility] Comment on above: Order Comment: Speci men Type: BLOOD SPECIMEN Ordering Facility: [facility] Address: [address] [place] [address] Performed By: #### 5 7021-8 #### [facility] CLIA [id number] [address] [place] [address] 52637 Erythrocyte distribution width (RBC) [Ratio] 12.5 % Normal 11.5-15.0 [facility] Comment on above: Order Comment: Speci men Type: BLOOD SPECIMEN Ordering Facility: [facility] Address: [address] [place] [address] Performed By: #### 5 7021-8 #### [facility] CLIA [id number] [address] [place] [address] 48932 Hematocrit (Bld) [Volume fraction] 34.8 % Low 39.0-51.0 [facility] Comment on above: Order Comment: Speci men Type: BLOOD SPECIMEN Ordering Facility: [facility] Address: [address] [place] [address] Performed By: #### 5 7021-8 #### [facility] CLIA [id number] [address] [place] [address] 26819 Hemoglobin (Bld) [Mass/Vol] 11.8 g/dL Low 13.0-17.0 [facility] Comment on above: Order Comment: Speci men Type: BLOOD SPECIMEN Ordering Facility: [facility] Address: [address] [place] [address] Performed By: #### 5 7021-8 #### [facility] CLIA [id number] [address] [place] [address] 31479 Immature granulocytes (Bld) [#/Vol] 0.05 10*3/uL Normal <0.10 [facility] Comment on above: Order Comment: Speci men Type: BLOOD SPECIMEN Ordering Facility: [facility] Address: [address] [place] [address] Performed By: #### 5 7021-8 #### [facility] CLIA [id number] [address] [place] [address] 24175 Immature granulocytes/100 WBC (Bld) 0.8 % Normal [facility] Comment on above: Order Comment: Speci men Type: BLOOD SPECIMEN Ordering Facility: [facility] Address: [address] [place] [address] Performed By: #### 5 7021-8 #### [facility] CLIA [id number] [address] [place] [address] 56837 Lymphocytes (Bld) [#/Vol] 1.78 10*3/uL Normal 1.00-4.00 [facility] Comment on above: Order Comment: Speci men Type: BLOOD SPECIMEN Ordering Facility: [facility] Address: [address] [place] [address] Performed By: #### 5 7021-8 #### [facility] CLIA [id number] [address] [place] [address] 52530 Lymphocytes/100 WBC (Bld) 27.7 % Normal [facility] Comment on above: Order Comment: Speci men Type: BLOOD SPECIMEN Ordering Facility: [facility] Address: [address] [place] [address] Performed By: #### 5 7021-8 #### [facility] CLIA [id number] [address] [place] [address] 53520 MCH (RBC) [Entitic mass] 32.2 pg Normal 26.0-34.0 [facility] Comment on above: Order Comment: Speci men Type: BLOOD SPECIMEN Ordering Facility: [facility] Address: [address] [place] [address] Performed By: #### 5 7021-8 #### [facility] CLIA [id number] [address] [place] [address] 22963 MCHC (RBC) [Mass/Vol] 33.9 g/dL Normal 30.5-36.0 [facility] Comment on above: Order Comment: Speci men Type: BLOOD SPECIMEN Ordering Facility: [facility] Address: [address] [place] [address] Performed By: #### 5 7021-8 #### [facility] CLIA [id number] [address] [place] [address] 75965 MCV (RBC) [Entitic vol] 94.8 fL Normal 80.0-100.0 [facility] Comment on above: Order Comment: Speci men Type: BLOOD SPECIMEN Ordering Facility: [facility] Address: [address] [place] [address] Performed By: #### 5 7021-8 #### [facility] CLIA [id number] [address] [place] [address] 96908 Monocytes (Bld) [#/Vol] 0.67 10*3/uL Normal <0.87 [facility] Comment on above: Order Comment: Speci men Type: BLOOD SPECIMEN Ordering Facility: [facility] Address: [address] [place] [address] Performed By: #### 5 7021-8 #### [facility] CLIA [id number] [address] [place] [address] 65246 Monocytes/100 WBC (Bld) 10.4 % Normal [facility] Comment on above: Order Comment: Speci men Type: BLOOD SPECIMEN Ordering Facility: [facility] Address: [address] [place] [address] Performed By: #### 5 7021-8 #### [facility] CLIA [id number] [address] [place] [address] 95399 Neutrophils (Bld) [#/Vol] 3.48 10*3/uL Normal 1.45-7.50 [facility] Comment on above: Order Comment: Speci men Type: BLOOD SPECIMEN Ordering Facility: [facility] Address: [address] [place] [address] Performed By: #### 5 7021-8 #### [facility] CLIA [id number] [address] [place] [address] 40144 Neutrophils/100 WBC (Bld) 54.1 % Normal [facility] Comment on above: Order Comment: Speci men Type: BLOOD SPECIMEN Ordering Facility: [facility] Address: [address] [place] [address] Performed By: #### 5 7021-8 #### [facility] CLIA [id number] [address] [place] [address] 93112 Nucleated RBC (Bld) [#/Vol] 10*3/uL Normal <0.01 [facility] Comment on above: Order Comment: Speci men Type: BLOOD SPECIMEN Ordering Facility: [facility] Address: [address] [place] [address] Performed By: #### 5 7021-8 #### [facility] CLIA [id number] [address] [place] [address] Nucleated RBC/100 WBC (Bld) [Ratio] 0.0 /100 WBC Normal [facility] Comment on above: Order Comment: Speci men Type: BLOOD SPECIMEN Ordering Facility: [facility] Address: [address] [place] [address] Performed By: #### 5 7021-8 #### [facility] CLIA [id number] [address] [place] [address] 02025 Platelet mean volume (Bld) [Entitic vol] 9.9 fL Normal 9.0-12.7 [facility] Comment on above: Order Comment: Speci men Type: BLOOD SPECIMEN Ordering Facility: [facility] Address: [address] [place] [address] Performed By: #### 5 7021-8 #### [facility] CLIA [id number] [address] [place] [address] 78794 Platelets (Bld) [#/Vol] 199 10*3/uL Normal 150-400 [facility] Comment on above: Order Comment: Speci men Type: BLOOD SPECIMEN Ordering Facility: [facility] Address: [address] [place] [address] Performed By: #### 5 7021-8 #### [facility] CLIA [id number] [address] [place] [address] 99735 RBC (Bld) [#/Vol] 3.67 10*6/uL Low 4.20-6.00 [facility] Comment on above: Order Comment: Speci men Type: BLOOD SPECIMEN Ordering Facility: [facility] Address: [address] [place] [address] Performed By: #### 5 7021-8 #### [facility] CLIA [id number] [address] [place] [address] 70519 WBC (Bld) [#/Vol] 6.43 10*3/uL Normal 3.70-11.00 [facility] Comment on above: Order Comment: Speci men Type: BLOOD SPECIMEN Ordering Facility: [facility] Address: [address] [place] [address] Performed By: #### 5 7021-8 #### [facility] CLIA [id number] [address] [place] [address] 70135 Comprehensive metabolic 2000 panelon 07-27-2023 Albumin [Mass/Vol] 4.2 g/dL Normal 3.9-4.9 [facility] Comment on above: Order Comment: Speci men Type: BLOOD SPECIMEN Ordering Facility: [facility] Address: [address] [place] [address] Performed By: #### 5 7021-8 #### [facility] CLIA [id number] [address] [place] [address] 02451 ALP [Catalytic activity/Vol] 73 U/L Normal 38-113 [facility] Comment on above: Order Comment: Speci men Type: BLOOD SPECIMEN Ordering Facility: [facility] Address: [address] [place] [address] Performed By: #### 5 7021-8 #### [facility] CLIA [id number] [address] [place] [address] 66772 ALT [Catalytic activity/Vol] 16 U/L Normal 10-54 [facility] Comment on above: Order Comment: Speci men Type: BLOOD SPECIMEN Ordering Facility: [facility] Address: [address] [place] [address] Performed By: #### 5 7021-8 #### [facility] CLIA [id number] [address] [place] [address] 01743 Anion gap [Moles/Vol] 10 mmol/L Normal 9-18 [facility] Comment on above: Order Comment: Speci men Type: BLOOD SPECIMEN Ordering Facility: [facility] Address: [address] [place] [address] Performed By: #### 5 7021-8 #### [facility] CLIA [id number] [address] [place] [address] 61208 AST [Catalytic activity/Vol] 17 U/L Normal 14-40 [facility] Comment on above: Order Comment: Speci men Type: BLOOD SPECIMEN Ordering Facility: [facility] Address: [address] [place] [address] Performed By: #### 5 7021-8 #### [facility] CLIA [id number] [address] [place] [address] 03483 Bilirubin [Mass/Vol] 0.6 mg/dL Normal 0.2-1.3 [facility] Comment on above: Order Comment: Speci men Type: BLOOD SPECIMEN Ordering Facility: [facility] Address: [address] [place] [address] Performed By: #### 5 7021-8 #### [facility] CLIA [id number] [address] [place] [address] 17400 Calcium [Mass/Vol] 9.5 mg/dL Normal 8.5-10.2 [facility] Comment on above: Order Comment: Speci men Type: BLOOD SPECIMEN Ordering Facility: [facility] Address: [address] [place] [address] Performed By: #### 5 7021-8 #### [facility] CLIA [id number] [address] [place] [address] 44326 Chloride [Moles/Vol] 102 mmol/L Normal 97-105 [facility] Comment on above: Order Comment: Speci men Type: BLOOD SPECIMEN Ordering Facility: [facility] Address: [address] [place] [address] Performed By: #### 5 7021-8 #### [facility] CLIA [id number] [address] [place] [address] 89847 CO2 [Moles/Vol] 26 mmol/L Normal 22-30 [facility] Comment on above: Order Comment: Speci men Type: BLOOD SPECIMEN Ordering Facility: [facility] Address: [address] [place] [id number] Performed By: #### 5 7021-8 #### [facility] CLIA [id number] [address] [place] [address] 79402 Creatinine [Mass/Vol] 0.85 mg/dL Normal 0.73-1.22 [facility] Comment on above: Order Comment: Nicanor camilo Type: BLOOD SPECIMEN Ordering Facility: [facility] Address: [address] [place], [place] [id number] Performed By: #### 5 7021-8 #### [facility] CLIA [id number] [address] [place] [address] 68258 Creatinine and Glomerular filtration rate.predicted panel (S/P/Bld) 89 mL/min/1.73m??? Normal >=60 [facility] Comment on above: Order Comment: Nicanor camilo Type: BLOOD SPECIMEN Ordering Facility: [facility] Address: [address] [place] [address] Result Comment: Renae mated Glomerular Filtration Rate [...] GFR. Performed By: #### 5 7021-8 #### [facility] CLIA [id number] [address] [place] [address] 06154 Glucose [Mass/Vol] 117 mg/dL High 74-99 [facility] Comment on above: Order Comment: Nicanor camilo Type: BLOOD SPECIMEN Ordering Facility: [facility] Address: [address] [place], [place] [id number] Result Comment: The [place] Diabetes Association (ADA) provides guidance for cutoff [...] Standards of Medical Care in Diabetes 2016, [place] [employer]. Diabetes Care. 2016.39(Suppl 1). Performed By: #### 5 7021-8 #### [facility] CLIA [id number] [address] [place] [address] Potassium [Moles/Vol] 4.8 mmol/L Normal 3.7-5.1 [facility] Comment on above: Order Comment: Speci men Type: BLOOD SPECIMEN Ordering Facility: [facility] Address: [address] [place] [address] Performed By: #### 5 7021-8 #### [facility] CLIA [id number] [address] [place] [address] 66007 Protein [Mass/Vol] 6.6 g/dL Normal 6.3-8.0 [facility] Comment on above: Order Comment: Speci men Type: BLOOD SPECIMEN Ordering Facility: [facility] Address: [address] [place] [address] Performed By: #### 5 7021-8 #### [facility] CLIA [id number] [address] [place] [address] 53485 Sodium [Moles/Vol] 138 mmol/L Normal 136-144 [facility] Comment on above: Order Comment: Speci men Type: BLOOD SPECIMEN Ordering Facility: [facility] Address: [address] [place] [address] Performed By: #### 5 7021-8 #### [facility] CLIA [id number] [address] [place] [address] 82819 Urea nitrogen [Mass/Vol] 13 mg/dL Normal 9-24 [facility] Comment on above: Order Comment: Speci men Type: BLOOD SPECIMEN Ordering Facility: [facility] Address: [address] [place] [id number] Performed By: #### 5 7021-8 #### [facility] CLIA [id number] [address] [place] [address] 90421 PSA [facility] 07-27-2023 Prostate specific Ag [Mass/Vol] 0.13 ng/mL Normal <2.60 [facility] Comment on above: Order Comment: Speci men Type: BLOOD SPECIMEN Ordering Facility: [facility] Address: [address] [place] [address] Result Comment: Terrie velasquez PSA test methodology used is the Electrochemiluminescence Immunoassay by [employer]. Total PSA values by differing methodologies cannot be interchanged. Performed By: #### 5 7021-8 #### [facility] CLIA [id number] [address] [place] [address] 13326 Office Visiton 06-22-2023 Follow-up visit [id number] Pablo Felix 1945 M Date Provider Department Center 06/22/2023 Erika-BRIDGER MULLIGAN Family History Problem Relation Age of Onset Coronary artery disease Father Family Status - Relation Status Age at Father Level of Service:00126 [place] OFFICE/OUTPATIENT ESTABLISHED MOD MDM 30-39 MIN Normal [facility] RAD - MISCon 04-24-2023 RAD - MISC [id number] Normal [facility] GLYCOHEMOGLOBIN A1Con 2022 ADA RECOMMENDATION SEE BELOW Normal [facility] Comment on above: Result Comment: ADA RECOMMENDED LIMIT 4.0 - 6.0 ADA THERAPEUTIC TARGET < 7.0 ACTION SUGGESTED > 7.0 Performed By: #### D ATA1C #### [facility] [address] [place] [address] [address] Bharati Aguiar Glucose [Mass/Vol] 131 mg/dL Normal [facility] Comment on above: Performed By: #### D ATA1C #### [facility] [address] [place], [place] [address] Dr. Bharati Aguiar HbA1c (Bld) [Mass fraction] 6.2 % Normal 4.5-6.2 [facility] Comment on above: Performed By: #### D ATA1C #### [facility] [address] [place] [address] [address] Bharati Aguiar XR CSPINE OBL FLEX_EXTon [...] by: CYNTHIA TORRES Date: 2022-07-21 15:52 Normal [facility] GLYCOHEMOGLOBIN A1Con 2021 ADA RECOMMENDATION SEE BELOW Normal [facility] Comment on above: Result Comment: ADA RECOMMENDED LIMIT 4.0 - 6.0 ADA THERAPEUTIC TARGET < 7.0 ACTION SUGGESTED > 7.0 Performed By: #### D ATA1C #### [facility] [address] [place] [address] [address] Bharati Aguiar Glucose [Mass/Vol] 134 mg/dL Normal [facility] Comment on above: Performed By: #### D ATA1C #### [facility] [address] [place] [address] [address] Bharati Aguiar HbA1c (Bld) [Mass fraction] 6.3 % Critically high 4.5-6.2 [facility] Comment on above: Performed By: #### D ATA1C #### [facility] [address] [place] [address] [address] Bharati Aguiar ECHOCARDIO M/2D COMPLETEon 1 ECHOCARDIO M/2D COMPLETE Patient: PABLO FELIX Exam Date: 04/27/2022 : 1945 Gender:M Ordering : LORA ENGLISH Admission #: [id number] Family : DR JAMAR FALL DSony Order #: [id number] CLICK HERE TO VIEW EXAM ECHOCARDIOGRAM REPORT [...] Carreon M.D. on 04/28/2022 at 19:09 Normal [facility] GLYCOHEMOGLOBIN A1Con 2021 ADA RECOMMENDATION SEE BELOW Normal [facility] Comment on above: Result Comment: ADA RECOMMENDED LIMIT 4.0 - 6.0 ADA THERAPEUTIC TARGET < 7.0 ACTION SUGGESTED > 7.0 Performed By: #### D ATA1C ####[facility] [address] [place] [address]DrJunior Aguiar Glucose [Mass/Vol] 137 mg/dL Normal [facility] Comment on above: Performed By: #### D ATA1C ####[facility] [address] [place] [id number] Aguiar HbA1c (Bld) [Mass fraction] 6.4 % Critically high 4.5-6.2 [facility] Comment on above: Performed By: #### D ATA1C ####[facility] [address] [place] [id number]. Bharati Aguiar NM BONE SC WH BODYon [...] it was not obviously included in the qzjne-sm-lxrs of the recent CT. There are foci [...] FEDE DE JESUS Date: 2021-11-06 12:45 Normal [facility] CT CHEST W CONon 11-05-2021 [...] LUIZ UMANA Date: 2021-11-05 14:08 Normal [facility] PROF 14(COMP METB)on 022 Albumin [Mass/Vol] 3.6 g/dL Normal 3.4-5.0 [facility] Comment on above: Performed By: #### C MP #### [facility] [address] [place] [address] Dr. Bharati Aguiar Albumin/Globulin [Mass ratio] 1.1 {ratio} Normal [facility] Comment on above: Performed By: #### C MP #### [facility] [address] [place] [address] Dr. Bharati Aguiar ALP [Catalytic activity/Vol] 89 U/L Normal 46-116 [facility] Comment on above: Performed By: #### C MP #### [facility] [address] [place] [address] Dr. Bharati Aguiar ALT [Catalytic activity/Vol] 33 U/L Normal 16-63 [facility] Comment on above: Performed By: #### C MP #### [facility] [address] [place] [address] Dr. Bharati Aguiar Anion gap [Moles/Vol] 12.1 mmol/L Normal [facility] Comment on above: Performed By: #### C MP #### [facility] [address] [place] [address] Dr. Bharati Aguiar AST [Catalytic activity/Vol] 19 U/L Normal 15-37 [facility] Comment on above: Performed By: #### C MP #### [facility] [address] [place] [address] [address] Bharati Aguiar Bilirubin [Mass/Vol] 0.9 mg/dL Normal 0.2-1.3 [facility] Comment on above: Performed By: #### C MP #### [facility] [address] [place] [address] Dr. Bharati Aguiar Calcium [Mass/Vol] 8.8 mg/dL Normal 8.5-10.1 [facility] Comment on above: Performed By: #### C MP #### [facility] [address] [place] [address] Dr. Bharati Aguiar Chloride [Moles/Vol] 103 mmol/L Normal 98-107 [facility] Comment on above: Performed By: #### C MP #### [facility] [address] [place] [address] Dr. Bharati Aguiar CO2 [Moles/Vol] 28.6 mmol/L Normal 22.0-30.0 [facility] Comment on above: Performed By: #### C MP #### [facility] [address] [place] [address] Dr. Bharati Aguiar Creatinine [Mass/Vol] 0.85 mg/dL Normal 0.66-1.25 [facility] Comment on above: Performed By: #### C MP #### [facility] [address] [place] [address] [address] Bharati Aguiar EGFR-AF ALBANIAN >60 Normal >=60 [facility] Comment on above: Performed By: #### C MP #### [facility] [address] [place] [address] Dr. Bharati Aguiar EGFR-NON AF ALBANIAN >60 Normal >=60 [facility] Comment on above: Performed By: #### C MP #### [facility] [address] [place] [address] [address] Bharati Aguiar Globulin (S) [Mass/Vol] 3.4 g/dL Normal [facility] Comment on above: Performed By: #### C MP #### [facility] [address] [place] [address] [address] Bharati Aguiar Glucose [Mass/Vol] 127 mg/dL Critically high 74-106 [facility] Comment on above: Performed By: #### C MP #### [facility] [address] [place] [address] Dr. Bharati Aguiar Potassium [Moles/Vol] 4.7 mmol/L Normal 3.4-5.0 [facility] Comment on above: Performed By: #### C MP #### [facility] [address] [place] [address] Dr. Bharati Aguiar Protein [Mass/Vol] 7.0 g/dL Normal 6.1-8.2 [facility] Comment on above: Performed By: #### C MP #### [facility] [address] [place] [address] Dr. Bharati Aguiar Sodium [Moles/Vol] 139 mmol/L Normal 137-145 [facility] Comment on above: Performed By: #### C MP #### [facility] [address] [place] [address] Dr. Bharati Aguiar Urea nitrogen [Mass/Vol] 18.0 mg/dL Normal 7.0-18.0 [facility] Comment on above: Performed By: #### C MP #### [facility] [address] [place] [address] Dr. Bharati Aguiar Urea nitrogen/Creatinin e [Mass ratio] 21.2 mg/mg Normal [facility] Comment on above: Performed By: #### C MP #### [facility] [address] [place] [address] Dr. Bharati Aguiar Vital Signs Date Time Vital Sign Value Performing Clinician Facility 05-09-2024 08:52-0400 Body mass index (BMI) [Ratio] 32.79 kg/m2 Marco A Esqueda MD Work Phone: [facility] 05-09-2024 08:52-0400 Body temperature 97.3 [degF] Marco A Esqueda MD Work Phone: [facility] 05-09-2024 08:52-0400 Body weight 92.1 kg Marco A Esqueda MD Work Phone: [facility] 05-09-2024 08:52-0400 Diastolic blood pressure 62 mm[Hg] Marco A Esqueda MD Work Phone: [facility] 05-09-2024 08:52-0400 Heart rate 62 /min Marco A Esqueda MD Work Phone: [facility] 05-09-2024 08:52-0400 Respiratory rate 16 /min Marco A Esqueda MD Work Phone: [facility] 05-09-2024 08:52-0400 SaO2% (BldA) [Mass fraction] 99 % Marco A Esqueda MD Work Phone: [facility] 05-09-2024 08:52-0400 Systolic blood pressure 141 mm[Hg] Macro A Esqueda MD Work Phone: [facility] 04-19-2024 08:15-0400 Blood Pressure Location Anthony [facility]CRUGGS [facility] 04-19-2024 08:15-0400 Body temperature 98.6 [degF] Anthony SCRUGGS [facility] 04-19-2024 08:15-0400 Diastolic blood pressure 69 mm[Hg] Anthony [facility]CRUGG[facility] 04-19-2024 08:15-0400 Heart rate 64 /min Anthony SCRUGGS [facility] 04-19-2024 08:15-0400 Respiratory rate 17 /min Anthony SCRUGGS [facility] 04-19-2024 08:15-0400 Systolic blood pressure 129 mm[Hg] Anthony SCRUGGS [facility] 03-26-2024 08:37-0400 Body height 168.91 cm [facility] 03-26-2024 08:37-0400 Body mass index (BMI) [Ratio] 33 kg/m2 [facility] 03-26-2024 08:37-0400 Body weight 94.12 kg [facility] 03-26-2024 08:37-0400 Diastolic blood pressure 80 mm[Hg] [facility] 03-26-2024 08:37-0400 Heart rate 52 /min [facility] 03-26-2024 08:37-0400 Respiratory rate 12 /min [facility] 03-26-2024 08:37-0400 Systolic blood pressure 130 mm[Hg] [facility] 02-02-2024 11:06-0400 Body height 167.6 cm Lynne Gross STAMPING MACHINE OPERATOR.DIRECTOR OF MARKETING Work Phone: [facility] 02-02-2024 11:06-0400 Body mass index (BMI) [Ratio] 33.36 kg/m2 Lynne Gross STAMPING MACHINE OPERATOR.DIRECTOR OF MARKETING Work Phone: [facility] 02-02-2024 11:06-0400 Body temperature 97.3 [degF] Lynne Gross STAMPING MACHINE OPERATOR.DIRECTOR OF MARKETING Work Phone: [facility] 02-02-2024 11:06-0400 Body weight 93.7 kg Lynne Gross STAMPING MACHINE OPERATOR.DIRECTOR OF MARKETING Work Phone: [facility] 02-02-2024 11:06-0400 Diastolic blood pressure 54 mm[Hg] Lynne Gross STAMPING MACHINE OPERATOR.DIRECTOR OF MARKETING Work Phone: [facility] 02-02-2024 11:06-0400 Heart rate 52 /min Lynne Gross STAMPING MACHINE OPERATOR.DIRECTOR OF MARKETING Work Phone: [facility] 02-02-2024 11:06-0400 Respiratory rate 16 /min Lynne Gross STAMPING MACHINE OPERATOR.DIRECTOR OF MARKETING Work Phone: [facility] 02-02-2024 11:06-0400 SaO2% (BldA) [Mass fraction] 98 % Lynne Alarcon APRN.DIRECTOR OF MARKETING Work Phone: [facility] 02-02-2024 11:06-0400 Systolic blood pressure 137 mm[Hg] Lynne Alarcon APRN.DIRECTOR OF MARKETING Work Phone: [facility] 11-23-2023 08:38-0400 Body height 168.91 cm [facility] 11-23-2023 08:38-0400 Body mass index (BMI) [Ratio] 33.2 kg/m2 [facility] 11-23-2023 08:38-0400 Body weight 94.8 kg [facility] 11-23-2023 08:38-0400 Diastolic blood pressure 69 mm[Hg] [facility] 11-23-2023 08:38-0400 Heart rate 48 /min [facility] 11-23-2023 08:38-0400 Respiratory rate 12 /min [facility] 11-23-2023 08:38-0400 Systolic blood pressure 130 mm[Hg] [facility] 11-02-2023 09:14-0400 Body height 167.6 cm Christo Howard APRN.DIRECTOR OF MARKETING Work Phone: [facility] 11-02-2023 09:14-0400 Body temperature 97.81 [degF] Christo Howard APRN.DIRECTOR OF MARKETING Work Phone: [facility] 11-02-2023 09:14-0400 Body weight 92.9 kg Christo Howard APRN.DIRECTOR OF MARKETING Work Phone: [facility] 11-02-2023 09:14-0400 Diastolic blood pressure 44 mm[Hg] Christo Howard APRN.DIRECTOR OF MARKETING Work Phone: [facility] 11-02-2023 09:14-0400 Heart rate 56 /min Christo Howard APRN.DIRECTOR OF MARKETING Work Phone: [facility] 11-02-2023 09:14-0400 Respiratory rate 16 /min Christo Howard APRN.DIRECTOR OF MARKETING Work Phone: [facility] 11-02-2023 09:14-0400 SaO2% (BldA) [Mass fraction] 97 % Christo Howard APRN.DIRECTOR OF MARKETING Work Phone: [facility] 11-02-2023 09:14-0400 Systolic blood pressure 123 mm[Hg] Christo Howard APRN.DIRECTOR OF MARKETING Work Phone: [facility] 10-20-2023 09:05-0400 Blood Pressure Location Anthony SCRUGGS [facility] 10-20-2023 09:05-0400 Diastolic blood pressure 64 mm[Hg] Anthonycindy SCRUGGS [facility] 10-20-2023 09:05-0400 Heart rate 53 /min Anthonycindy SCRUGGS [facility] 10-20-2023 09:05-0400 Respiratory rate 16 /min Anthony SCRUGGS [facility] 10-20-2023 09:05-0400 Systolic blood pressure 110 mm[Hg] Anthony SCRUGGS [facility] 09-12-2023 14:13-0500 Body height 168.91 cm [facility] 09-12-2023 14:13-0500 Body mass index (BMI) [Ratio] 33.4 kg/m2 [facility] 09-12-2023 14:13-0500 Body weight 95.42 kg [facility] 09-12-2023 14:13-0500 Diastolic blood pressure 84 mm[Hg] [facility] 09-12-2023 14:13-0500 Heart rate 56 /min [facility] 09-12-2023 14:13-0500 Respiratory rate 12 /min [facility] 02-27-2024 14:13-0500 Systolic blood pressure 143 mm[Hg] [facility] 08-24-2023 08:30-0500 Body height 168.91 cm Jamar Ball Other [employer] Other 08-24-2023 08:30-0500 Body mass index (BMI) [Ratio] 34.08 kg/m2 Jamar Ball Other [employer] Other 08-24-2023 08:30-0500 Body weight 97.25 kg Jamar Ball Other [employer] Other 08-24-2023 08:30-0500 Diastolic blood pressure 81 mm[Hg] Jamar Ball Other [employer] Other 08-24-2023 08:30-0500 Respiratory rate 12 /min Jamar Ball Other [employer] Other 08-24-2023 08:30-0500 Systolic blood pressure 125 mm[Hg] Jamar Ball Other [employer] Other 05-30-2023 15:00-0500 Body height 168.91 cm Jamar Ball Other [employer] Other 05-30-2023 15:00-0500 Body mass index (BMI) [Ratio] 32.84 kg/m2 Jamar Ball Other [employer] Other 05-30-2023 15:00-0500 Body weight 93.71 kg Jamar Ball Other [employer] Other 05-30-2023 15:00-0500 Diastolic blood pressure 66 mm[Hg] Jamar Ball Other [employer] Other 05-30-2023 15:00-0500 Respiratory rate 12 /min Jamar Ball Other [employer] Other 05-30-2023 15:00-0500 Systolic blood pressure 141 mm[Hg] Jamar Ball Other [employer] Other 05-01-2023 09:45-0400 Body height 168.91 cm Jamar Ball Other [employer] Other 05-01-2023 09:45-0400 Body mass index (BMI) [Ratio] 32.14 kg/m2 Jamar Ball Other [employer] Other 05-01-2023 09:45-0400 Body weight 91.72 kg Jamar Ball Other [employer] Other 05-01-2023 09:45-0400 Diastolic blood pressure 62 mm[Hg] Jamar Ball Other [employer] Other 05-01-2023 09:45-0400 Respiratory rate 12 /min Jamar Ball Other [employer] Other 05-01-2023 09:45-0400 Systolic blood pressure 129 mm[Hg] Jamar Ball Other [employer] Other 04-27-2023 09:23-0400 Diastolic blood pressure 49 mm[Hg] Christo Howard APRN.DIRECTOR OF MARKETING Work Phone: [facility] 04-27-2023 09:23-0400 Heart rate 50 /min Christo Howard APRN.DIRECTOR OF MARKETING Work Phone: [facility] 04-27-2023 09:23-0400 Systolic blood pressure 141 mm[Hg] Christo Howard APRN.DIRECTOR OF MARKETING Work Phone: [facility] 04-27-2023 09:20-0400 Body height 167.6 cm Christo Howard APRN.DIRECTOR OF MARKETING Work Phone: [facility] 04-27-2023 09:20-0400 Body temperature 97 [degF] Christo Howard STAMPING MACHINE OPERATOR.DIRECTOR OF MARKETING Work Phone: [facility] 04-27-2023 09:20-0400 Body weight 92.53 kg Christo Howard STAMPING MACHINE OPERATOR.DIRECTOR OF MARKETING Work Phone: [facility] 04-27-2023 09:20-0400 Respiratory rate 16 /min Christo Howard STAMPING MACHINE OPERATOR.DIRECTOR OF MARKETING Work Phone: [facility] 04-27-2023 09:20-0400 SaO2% (BldA) [Mass fraction] 100 % Christo Howard STAMPING MACHINE OPERATOR.DIRECTOR OF MARKETING Work Phone: [facility] 04-17-2023 08:45-0400 Blood Pressure Location Anthony SCRUGGS [facility] 04-17-2023 08:45-0400 Diastolic blood pressure 68 mm[Hg] Anthony SCRUGGS [facility] 04-17-2023 08:45-0400 Heart rate 62 /min Anthony SCRUGGS [facility] 04-17-2023 08:45-0400 Respiratory rate 16 /min Anthony SCRUGGS [facility] 04-17-2023 08:45-0400 Systolic blood pressure 130 mm[Hg] Anthony SCRUGGS [facility] 04-05-2023 13:45-0400 Body height 168.91 cm Jamar Fall Other [employer] Other 04-05-2023 13:45-0400 Body mass index (BMI) [Ratio] 32.46 kg/m2 Jamar Fall Other [employer] Other 04-05-2023 13:45-0400 Body weight 92.63 kg Jamar Ball Other [employer] Other 04-05-2023 13:45-0400 Diastolic blood pressure 67 mm[Hg] Jamar Ball Other [employer] Other 04-05-2023 13:45-0400 Respiratory rate 12 /min Jamar Ball Other [employer] Other 04-05-2023 13:45-0400 Systolic blood pressure 109 mm[Hg] Jamar Ball Other [employer] Other 03-15-2023 08:45-0400 Body height 168.91 cm Jamar Ball Other [employer] Other 03-15-2023 08:45-0400 Body mass index (BMI) [Ratio] 32.81 kg/m2 Jamar Ball Other [employer] Other 03-15-2023 08:45-0400 Body weight 93.62 kg Jamar Ball Other [employer] Other 03-15-2023 08:45-0400 Diastolic blood pressure 69 mm[Hg] Jamar Ball Other [employer] Other 03-15-2023 08:45-0400 Respiratory rate 12 /min Jamar Ball Other [employer] Other 03-15-2023 08:45-0400 Systolic blood pressure 131 mm[Hg] Jamar Ball Other [employer] Other 02-02-2023 09:32-0400 Body height 167.6 cm Marco A Esqueda MD Work Phone: [facility] 02-02-2023 09:32-0400 Body temperature 97.2 [degF] Marco A Esqueda MD Work Phone: [facility] 02-02-2023 09:32-0400 Body weight 96.62 kg Marco A Esqueda MD Work Phone: [facility] 02-02-2023 09:32-0400 Diastolic blood pressure 43 mm[Hg] Marco A Esqueda MD Work Phone: [facility] 02-02-2023 09:32-0400 Heart rate 50 /min Marco A Esqueda MD Work Phone: [facility] 02-02-2023 09:32-0400 Respiratory rate 16 /min Marco A Esqueda MD Work Phone: [facility] 02-02-2023 09:32-0400 SaO2% (BldA) [Mass fraction] 97 % Marco A Esqueda MD Work Phone: [facility] 02-02-2023 09:32-0400 Systolic blood pressure 131 mm[Hg] Marco A Esqueda MD Work Phone: [facility] 11-10-2022 09:30-0400 Body height 167.6 cm Christo Howard STAMPING MACHINE OPERATOR.DIRECTOR OF MARKETING Work Phone: [facility] 11-10-2022 09:30-0400 Body temperature 97.11 [degF] Christo Howard STAMPING MACHINE OPERATOR.DIRECTOR OF MARKETING Work Phone: [facility] 11-10-2022 09:30-0400 Body weight 96.44 kg Christo Howard APRN.DIRECTOR OF MARKETING Work Phone: [facility] 11-10-2022 09:30-0400 Diastolic blood pressure 68 mm[Hg] Christo Howard APRN.DIRECTOR OF MARKETING Work Phone: [facility] 11-10-2022 09:30-0400 Heart rate 54 /min Christo Howard APRN.DIRECTOR OF MARKETING Work Phone: [facility] 11-10-2022 09:30-0400 Respiratory rate 16 /min Christo Howard APRN.DIRECTOR OF MARKETING Work Phone: [facility] 11-10-2022 09:30-0400 SaO2% (BldA) [Mass fraction] 98 % Christo Howard STAMPING MACHINE OPERATOR.DIRECTOR OF MARKETING Work Phone: [facility] 11-10-2022 09:30-0400 Systolic blood pressure 134 mm[Hg] Christo Howard APRN.DIRECTOR OF MARKETING Work Phone: [facility] 09-16-2022 08:30-0500 Body height 168.91 cm Jamar Ball Other [employer] Other 09-16-2022 08:30-0500 Body mass index (BMI) [Ratio] 33.16 kg/m2 Jamar Ball Other [employer] Other 09-16-2022 08:30-0500 Body weight 94.62 kg Jamar Ball Other [employer] Other 09-16-2022 08:30-0500 Diastolic blood pressure 78 mm[Hg] Jamar Ball Other [employer] Other 09-16-2022 08:30-0500 Respiratory rate 12 /min Jamar Ball Other [employer] Other 09-16-2022 08:30-0500 Systolic blood pressure 116 mm[Hg] Jamar Ball Other [employer] Other 09-09-2022 08:30-0500 Body height 168.91 cm Jamar Ball Other [employer] Other 09-09-2022 08:30-0500 Body mass index (BMI) [Ratio] 33.45 kg/m2 Jamar Ball Other [employer] Other 09-09-2022 08:30-0500 Body weight 95.44 kg Jamar Ball Other [employer] Other 09-09-2022 08:30-0500 Diastolic blood pressure 76 mm[Hg] Jamar Ball Other [employer] Other 09-09-2022 08:30-0500 Respiratory rate 12 /min Jamar Ball Other [employer] Other 09-09-2022 08:30-0500 Systolic blood pressure 118 mm[Hg] Jamar Ball Other [employer] Other 09-09-2022 07:30-0500 Body height 168.91 cm Jamar Ball Other [employer] Other 09-09-2022 07:30-0500 Body mass index (BMI) [Ratio] 33.45 kg/m2 Jamar Ball Other [employer] Other 09-09-2022 07:30-0500 Body weight 95.44 kg Jamar Ball Other [employer] Other 09-09-2022 07:30-0500 Diastolic blood pressure 76 mm[Hg] Jamar Ball Other [employer] Other 09-09-2022 07:30-0500 Respiratory rate 12 /min Jamar Ball Other [employer] Other 09-09-2022 07:30-0500 Systolic blood pressure 118 mm[Hg] Jamar Ball Other [employer] Other 08-11-2022 09:24-0500 Body height 167.6 cm Marco A Esqueda MD Work Phone: [facility] 08-11-2022 09:24-0500 Body temperature 97 [degF] Marco A Esqueda MD Work Phone: [facility] 08-11-2022 09:24-0500 Body weight 96.44 kg Marco A Esqueda MD Work Phone: [facility] 08-11-2022 09:24-0500 Diastolic blood pressure 56 mm[Hg] Marco A Esqueda MD Work Phone: [facility] 08-11-2022 09:24-0500 Heart rate 53 /min Marco A Esqueda MD Work Phone: [facility] 08-11-2022 09:24-0500 Respiratory rate 16 /min Marco A Esqueda MD Work Phone: [facility] 08-11-2022 09:24-0500 SaO2% (BldA) [Mass fraction] 97 % Marco A Esqueda MD Work Phone: [facility] 08-11-2022 09:24-0500 Systolic blood pressure 129 mm[Hg] Marco A Esqueda MD Work Phone: [facility] 07-21-2022 15:30-0500 Body height 168.91 cm Jamar Ball Other [employer] Other 07-21-2022 15:30-0500 Body mass index (BMI) [Ratio] 34.18 kg/m2 Jamar Ball Other [employer] Other 07-21-2022 15:30-0500 Body weight 97.52 kg Jamar Ball Other [employer] Other 07-21-2022 15:30-0500 Diastolic blood pressure 76 mm[Hg] Jamar Ball Other [employer] Other 07-21-2022 15:30-0500 Respiratory rate 16 /min Jamar Ball Other [employer] Other 07-21-2022 15:30-0500 Systolic blood pressure 118 mm[Hg] Jamar Ball Other [employer] Other 05-13-2022 09:07-0400 Blood Pressure Location Anthony SCRUGGS [facility] 05-13-2022 09:07-0400 Diastolic blood pressure 72 mm[Hg] Anthony SCRUGGS [facility] 05-13-2022 09:07-0400 Heart rate 55 /min Anthony SCRUGGS [facility] 05-13-2022 09:07-0400 Respiratory rate 16 /min Anthony SCRUGGS [facility] 05-13-2022 09:07-0400 Systolic blood pressure 108 mm[Hg] Anthony SCRUGGS [facility] 05-12-2022 10:41-0400 Body temperature 97.81 [degF] LUAN Khan MD Work Phone: [facility] 05-12-2022 10:41-0400 Body weight 95.07 kg LUAN Khan MD Work Phone: [facility] 05-12-2022 10:41-0400 Diastolic blood pressure 42 mm[Hg] LUAN Khan MD Work Phone: [facility] 05-12-2022 10:41-0400 Heart rate 51 /min LUAN Khan MD Work Phone: [facility] 05-12-2022 10:41-0400 Respiratory rate 18 /min LUAN Khan MD Work Phone: [facility] 05-12-2022 10:41-0400 SaO2% (BldA) [Mass fraction] 99 % LUAN Khan MD Work Phone: [facility] 05-12-2022 10:41-0400 Systolic blood pressure 134 mm[Hg] LUAN Khan MD Work Phone: [facility] 02-17-2022 09:36-0400 Body height 167.6 cm Marco A Esqueda MD Work Phone: [facility] 02-17-2022 09:36-0400 Body temperature 97.9 [degF] Marco A Esqueda MD Work Phone: [facility] 02-17-2022 09:36-0400 Body weight 97.07 kg Marco A Esqueda MD Work Phone: [facility] 02-17-2022 09:36-0400 Diastolic blood pressure 58 mm[Hg] Marco A Esqueda MD Work Phone: [facility] 02-17-2022 09:36-0400 Heart rate 63 /min Marco A Esqueda MD Work Phone: [facility] 02-17-2022 09:36-0400 Respiratory rate 16 /min Marco A Esqueda MD Work Phone: [facility] 02-17-2022 09:36-0400 SaO2% (BldA) [Mass fraction] 99 % Marco A Esqueda MD Work Phone: [facility] 02-17-2022 09:36-0400 Systolic blood pressure 133 mm[Hg] Marco A Esqueda MD Work Phone: [facility] 11-18-2021 10:50-0400 Body temperature 97.7 [degF] [facility] [place] Work Phone: [facility] 11-18-2021 10:50-0400 Diastolic blood pressure 63 mm[Hg] [facility] [place] Work Phone: [facility] 11-18-2021 10:50-0400 Heart rate 60 /min [facility] [place] Work Phone: [facility] 11-18-2021 10:50-0400 Respiratory rate 18 /min [facility] [place] Work Phone: [facility] 11-18-2021 10:50-0400 SaO2% (BldA) [Mass fraction] 95 % [facility] [place] Work Phone: [facility] 11-18-2021 10:50-0400 Systolic blood pressure 139 mm[Hg] [facility] [place] Work Phone: [facility] 11-11-2021 13:58-0400 Body height 167.6 cm Marco A Esqueda MD Work Phone: [facility] 11-11-2021 13:58-0400 Body temperature 97.39 [degF] Marco A Esqueda MD Work Phone: [facility] 11-11-2021 13:58-0400 Body weight 98.97 kg Marco A Esqueda MD Work Phone: [facility] 11-11-2021 13:58-0400 Diastolic blood pressure 54 mm[Hg] Marco A Esqueda MD Work Phone: [facility] 11-11-2021 13:58-0400 Heart rate 68 /min Marco A Esqueda MD Work Phone: [facility] 11-11-2021 13:58-0400 Respiratory rate 16 /min Marco A Esqueda MD Work Phone: [facility] 11-11-2021 13:58-0400 SaO2% (BldA) [Mass fraction] 98 % Marco A Esqueda MD Work Phone: [facility] 11-11-2021 13:58-0400 Systolic blood pressure 130 mm[Hg] Marco A Esqueda MD Work Phone: [facility] 11-08-2021 13:03-0400 Blood Pressure Location Anthony SCRUGGS [facility] 11-08-2021 13:03-0400 Diastolic blood pressure 60 mm[Hg] Anthony SCRUGGS [facility] 11-08-2021 13:03-0400 Heart rate 61 /min Anthony SCRUGGS [facility] 11-08-2021 13:03-0400 Systolic blood pressure 135 mm[Hg] Anthony SCRUGGS [facility] Encounters Encounter Date Encounter Type Care Provider Facility Start: 10-07-2024 ambulatory Anthony SCRUGGS Facili ty:[facility] Start: 05-09-2024 End: 05-09-2024 ambulatory [facility] Work Phone: Hematology/Oncology Comment on above: Malignant neoplasm o f prostate (HCC) (Primary Dx) Start: 05-09-2024 End: 05-09-2024 Patient encounter procedure Marco A Esqueda MD Work Phone: Hematology/Oncology Start: 05-08-2024 End: 05-08-2024 Refill Aida Luo [facility] Work Phone: [facility] Comment on above: Refill Request Start: 05-03-2024 End: 05-03-2024 ambulatory JAMAR FALL Facility:[facility] Start: 04-19-2024 End: 04-19-2024 ambulatory Anthony SCRUGGS Facility:[facility] Start: 04-19-2024 End: 04-19-2024 Patient encounter procedure Anthony SCRUGGS [facility] Start: 04-01-2024 End: 04-01-2024 Refill Marco A Esqueda MD Work Phone: Hematology/Oncology Comment on above: Refill Request Start: 04-01-2024 End: 04-01-2024 Refill Aida Luo [facility] Work Phone: [facility] Comment on above: Refill Request Start: 03-29-2024 Encounter for preprocedural cardiovascular examination LORA ENGLISH [facility] Start: 03-29-2024 End: 04-01-2024 ambulatory [facility] Start: 03-29-2024 End: 04-01-2024 Encounter for other preprocedural examination [facility] Start: 03-29-2024 End: 04-01-2024 Encounter for preprocedural cardiovascular examination [facility] Start: 03-26-2024 End: 03-26-2024 ambulatory [facility] Work Phone: Start: 03-26-2024 End: 03-26-2024 Patient encounter procedure [facility] Work Phone: Start: 02-29-2024 End: 02-29-2024 ambulatory ALEXIA FRANCO Not Available Start: 02-26-2024 End: 02-26-2024 ambulatory LONG BOO Not Available Start: 02-02-2024 End: 02-02-2024 ambulatory [facility] [place] Work Phone: Hematology/Oncology Comment on above: Malignant neoplasm o f prostate (HCC) (Primary Dx) Start: 02-02-2024 End: 02-02-2024 Patient encounter procedure Lynne Alarcon APRN.DIRECTOR OF MARKETING Work Phone: Hematology/Oncology Comment on above: Malignant neoplasm o f prostate (HCC) (Primary Dx) Start: 01-25-2024 End: 01-25-2024 ambulatory JAMAR FALL Facility:[facility] Start: 01-25-2024 Non-patient / Non-visit [facility] Work Phone: Start: 11-23-2023 End: 11-23-2023 ambulatory [facility] Work Phone: Start: 11-23-2023 End: 11-23-2023 Patient encounter procedure [facility] Work Phone: Start: 11-02-2023 End: 11-02-2023 ambulatory [facility] [place] Work Phone: Hematology/Oncology Comment on above: Malignant neoplasm o f prostate (HCC) (Primary Dx) Malignant neoplasm o f prostate (HCC) (Primary Dx); Essential hypertension; 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 pectoris, unspecified vessel or lesion type; Type 2 diabetes mellitus without complication, without long-term current use of insulin (HCC); Lesion of skin of right ear; Abdominal discomfort Start: 11-02-2023 End: 11-02-2023 Patient encounter procedure Christo Howard APRN.DIRECTOR OF MARKETING Work Phone: [facility] Start: 10-30-2023 End: 10-30-2023 ambulatory JAMAR FALL Facility:[facility] Start: 10-30-2023 Non-patient / Non-visit [facility] Work Phone: Start: 10-20-2023 End: 10-20-2023 ambulatory Anthony SCRUGGS Facility:[facility] Start: 10-20-2023 End: 10-20-2023 Patient encounter procedure Anthony SCRUGGS [facility] Start: 10-09-2023 Non-patient / Non-visit [facility] Work Phone: Start: 09-28-2023 End: 09-28-2023 ambulatory PABLO CHRISTINA Not Available Start: 09-12-2023 End: 09-12-2023 Patient encounter procedure [facility] Work Phone: Start: 09-06-2023 Non-patient / Non-visit [facility] Work Phone: Start: 08-28-2023 Bamboo flowsheet Long myrick STAMPING MACHINE OPERATOR-DIRECTOR OF MARKETING Work Phone: [facility] Start: 08-28-2023 Bamboo flowsheet Long myrick STAMPING MACHINE OPERATOR-DIRECTOR OF MARKETING Work Phone: [facility] Start: 08-28-2023 End: 08-28-2023 Patient encounter procedure Long Boo STAMPING MACHINE OPERATOR-DIRECTOR OF MARKETING Work Phone: [facility] Comment on above: Neoplasm of unspecif ied behavior of bone, soft tissue, and skin; Actinic keratosis Start: 08-28-2023 End: 08-28-2023 ambulatory LONG BOO Not Available Start: 08-24-2023 End: 08-24-2023 ambulatory Jamar Fall Other [employer] Other Start: 08-24-2023 Patient encounter procedure Jamar Fall [facility] Start: 08-04-2023 End: 08-04-2023 ambulatory Jamar Fall Other [employer] Other Start: 08-04-2023 Telephone encounter Jamar EDMONDS [facility] Start: 08-03-2023 End: 08-03-2023 ambulatory MARCO A ESQUEDA Facility:[facility] Start: 07-27-2023 End: 07-27-2023 ambulatory JAMAR FALL Facility:[facility] Start: 06-22-2023 End: 06-22-2023 ambulatory AB [place] Start: 06-05-2023 Telephone encounter Jamar EDMONDS [facility] Start: 06-05-2023 End: 06-05-2023 ambulatory EMELINA Craig [facility] [employer] Other Start: 05-30-2023 End: 05-30-2023 ambulatory Jamar Fall Other [employer] Other Start: 05-30-2023 Office outpatient vi sit 15 minutes Jamar Fall [facility] Start: 05-01-2023 End: 05-01-2023 ambulatory Jamar Fall Other [employer] Other Start: 05-01-2023 Office outpatient vi sit 15 minutes Jamar Fall [facility] Start: 04-27-2023 Telephone encounter Jamar EDMONDS [facility] Start: 04-27-2023 End: 04-27-2023 ambulatory [facility] Him[facility]hu Krishnan Work Phone: Hematology/Oncology Comment on above: Malignant neoplasm o f prostate (HCC) (Primary Dx) Malignant neoplasm o f prostate (HCC) (Primary Dx); 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 pectoris, unspecified vessel or lesion type; Essential hypertension; Type 2 diabetes mellitus without complication, without long-term current use of insulin (HCC) Start: 04-27-2023 End: 04-27-2023 Patient encounter procedure Christo Howard APRN.CNP Work Phone: [facility] Start: 04-25-2023 End: 04-25-2023 ambulatory Jamar Fall Other [employer] Other Start: 04-25-2023 Telephone encounter Jamar EDMONDS [facility] Start: 04-18-2023 End: 04-18-2023 ambulatory Jamar Fall Other [employer] Other Start: 04-18-2023 Telephone encounter Jamar EDMONDS [facility] Start: 04-17-2023 End: 04-17-2023 Patient encounter procedure Anthony SCRUGGS [facility] Start: 04-12-2023 End: 04-12-2023 ambulatory Jamar Fall Other [employer] Other Start: 04-12-2023 Telephone encounter Jamar EDMONDS [facility] Start: 04-06-2023 End: 04-06-2023 ambulatory Jamar Fall Other [employer] Other Start: 04-06-2023 Telephone encounter Jamar EDMONDS [facility] Start: 04-05-2023 End: 04-05-2023 ambulatory Jamar Fall Other [employer] Other Start: 04-05-2023 Office outpatient vi sit 15 minutes Jamar Fall [facility] Start: 04-05-2023 Telephone encounter Jamar EDMONDS [facility] Start: 03-15-2023 End: 03-15-2023 ambulatory Jamar Fall Other [employer] Other Start: 03-15-2023 Office outpatient vi sit 25 minutes Jamar Fall [facility] Start: 02-05-2023 End: 02-05-2023 ambulatory Jamar Fall Other [employer] Other Start: 02-05-2023 Telephone encounter Jamar Fall [facility] Start: 02-02-2023 End: 02-02-2023 ambulatory [facility] Work Phone: Hematology/Oncology Comment on above: Malignant neoplasm o f prostate (HCC) (Primary Dx) Start: 02-02-2023 End: 02-02-2023 Patient encounter procedure Marco A Esqueda MD Work Phone: [employer] ??? Start: 11-15-2022 End: 11-15-2022 ambulatory Jamar Fall Other [employer] Other Start: 11-15-2022 Encounter by [employer] Jamar Fall [facility] Start: 11-11-2022 End: 11-11-2022 ambulatory Jamar Fall Other [employer] Other Start: 11-11-2022 Encounter by [employer] Jamar Fall [facility] Start: 11-10-2022 End: 11-10-2022 ambulatory [facility] [place] Work Phone: Hematology/Oncology Comment on above: Malignant neoplasm o f prostate (HCC) (Primary Dx) Malignant neoplasm o f prostate (HCC) (Primary Dx); 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 pectoris, unspecified vessel or lesion type; Essential hypertension; Type 2 diabetes mellitus without complication, without long-term current use of insulin (HCC) Start: 11-10-2022 End: 11-10-2022 Patient encounter procedure Christo Howard APRN.CNP Work Phone: [employer] ??? Start: 10-25-2022 End: 10-26-[address] ANTHONY SCRUGGS . Facility:[facility] Start: 09-16-2022 End: 09-16-2022 ambulatory Jamar Fall Other [employer] Other Start: 09-16-2022 Office outpatient vi sit 15 minutes Jamar Fall [facility] Start: 09-09-2022 End: 09-09-2022 ambulatory Jamar Fall Other [employer] Other Start: 09-09-2022 Patient encounter procedure Jamar Fall [facility] Start: 09-05-2022 End: 09-06-2022 ambulatory NONE LISTED REQUEST Facility:[facility] Start: 08-11-2022 End: 08-11-2022 ambulatory [facility] Ariella Work Phone: Hematology/Oncology Comment on above: Malignant neoplasm o f prostate (HCC) (Primary Dx) Malignant neoplasm o f prostate (HCC) (Primary Dx); Bone metastasis (HCC); 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 pectoris, unspecified vessel or lesion type; Essential hypertension; Type 2 diabetes mellitus without complication, without long-term current use of insulin (HCC) Start: 08-11-2022 End: 08-11-2022 Patient encounter procedure Marco A Esqueda MD Work Phone: [employer] ??? Start: 07-21-2022 End: 07-22-[address] JAMAR FALL [facility] [employer] Other Start: 07-21-2022 Office outpatient vi sit 15 minutes Jamar Fall [facility] Start: 07-21-2022 Patient encounter procedure Jamar Fall [facility] Start: 07-21-2022 Telephone encounter Jamar Fall [facility] Start: 05-27-2022 End: 05-28-2022 ambulatory NONE LISTED REQUEST Facility:[facility] Start: 05-13-2022 End: 05-13-2022 Patient encounter procedure Anthony SCRUGGS [facility] Start: 05-12-2022 End: 05-12-2022 Patient encounter [...] procedure Marco A Esqueda MD Work Phone: [facility] ??? Start: 01-25-2022 End: 01-26-[address] DE LISTED REQUEST Facility:[facility] Start: 12-06-2021 Telephone encounter Clementine steinberg RN Work Phone: Hematology/Oncology Comment on above: Care Coordination (R efill Question) Start: 11-18-2021 End: 11-18-2021 ambulatory [facility] [place] Work Phone: Hematology/Oncology Comment on above: Malignant neoplasm o f prostate (HCC) (Primary Dx) Start: 11-11-2021 End: 11-11-2021 ambulatory Marco A Esqueda MD Work Phone: Hematology/Oncology Comment on above: Malignant neoplasm o f prostate (HCC) (Primary Dx); Bone metastasis (HCC) Start: 11-11-2021 End: 11-11-2021 Patient encounter procedure Marco A Esqueda MD Work Phone: [facility] Start: 11-10-2021 Telephone encounter Clementine steinbreg RN Work Phone: Hematology/Oncology Comment on above: Care Coordination (M edication Update) Start: 11-09-2021 Telephone encounter Clementine steinberg RN Work Phone: Hematology/Oncology Comment on above: Care Coordination (M edication Start Date - Enzalutamide) Start: 11-08-2021 End: 11-08-2021 Patient encounter procedure Anthony Jesus SCRUGGS [facility] Start: 11-05-2021 End: 11-06-[address] MARCO A ESQUEDA Facility: Start: 11-04-2021 ambulatory Clementine lee RN Work Phone: Hematology/Oncology Comment on above: Oral Anti-cancer Age nt Education (Enzalutamide) Start: 11-04-2021 Telephone encounter Aida Coles [facility] Work Phone: Hematology/Oncology Comment on above: [...] (Xtandi) Start: 10-25-2021 Chart abstracting Marco A hytat MD Work Phone: Hematology/Oncology Start: 10-25-2021 Telephone encounter Marco A carrington MD Work Phone: Hematology/Oncology Comment on above: Lab Orders Start: 07-22-2021 Adult health examination Bam Fall Other [facility] [employer] Other Procedures Date Procedure Procedure Detail Performing Clinician Start: 08-28-2023 CRYOTHERAPY SKIN LESION Long Boo STAMPING MACHINE OPERATOR-DIRECTOR OF MARKETING Work Phone: Start: 08-28-2023 SKIN / NAIL BIOPSY Windy Boo STAMPING MACHINE OPERATOR-DIRECTOR OF MARKETING Work Phone: Start: 07-17-2023 Decompression of med anthony nerve Anthony SCRUGGS Start: 10-25-[address] JESE FALL Comment on above: Performed By: #### P SAD #### [facility] [address] [place], [place] [address] Dr[address] Bharati Aguiar Start: 05-05-[address] JESE FALL Comment on above: Performed By: #### P SAD ####[facility] [id number] [place], [place] [address]VcDr. Bharati Aguiar Start: 02-16-2022 Adult depression scr [...] DTaP,Tdap,Td Vaccine (6 - Td or Tdap) [facility] Start: 05-03-2027 Diabetes Screening Diabetes Screening [facility] Start: 01-24-2027 Diabetes Screening Diabetes Screening [facility] Start: 10-29-2026 Diabetes Screening Diabetes Screening [facility] Start: 04-24-2026 Diabetes Screening Diabetes Screening [facility] Start: 02-02-2026 DIABETES SCREEN DIABETES SCREEN [facility] Start: 11-10-2025 DIABETES SCREEN DIABETES SCREEN [facility] Start: 08-11-2025 DIABETES SCREEN DIABETES SCREEN [facility] Start: 05-12-2025 DIABETES SCREEN DIABETES SCREEN [facility] Start: 02-17-2025 DIABETES SCREEN DIABETES SCREEN [facility] Start: 11-11-2024 DIABETES SCREEN DIABETES SCREEN [facility] Start: 08-08-2024 End: 08-08-2024 Follow-up encounter Hematology/Oncology Comment on above: 3 month lab follow up with xgeva inj Start: 08-01-2024 End: 08-01-2024 Patient encounter procedure 08/01/2024 9:00 AM EST Office Visit [facility] [address] [place] [address] [place] [address] 3 month labs [facility] Comment on above: 3 month labs Start: 05-09-2024 End: 05-09-2024 Follow-up encounter Hematology/Oncology Comment on above: 3 month lab follow up with xgeva inj Start: 05-07-2024 End: 05-07-2024 Patient encounter procedure 05/07/2024 9:00 AM EDT Office Visit [facility] [address] [place] [address] 3 month lab follow up with xgeva inj [facility] Comment on above: 3 month lab follow up with xgeva inj Start: 05-03-2024 End: 05-03-2024 Patient encounter procedure 05/03/2024 9:00 AM EDT Office Visit [facility] [address] [place] [address] 3 month lab follow up with xgeva inj [facility] Comment on above: 3 month lab follow up with xgeva inj Start: 04-29-2024 End: 07-29-2024 CBC W Auto Differential panel - Blood COMPLETE BLOOD COUNT AND DIFFERENTIAL Lab Routine Malignant neoplasm of prostate (HCC) Expected: 04/29/2024, Expires: 07/29/2024 [facility] Work Phone: Comment on above: Expected: 04/29/2024, Expires: Start: 04-29-2024 End: 07-29-2024 Comprehensive metabolic 2000 panel - Serum or Plasma COMPREHENSIVE METABOLIC PANEL Lab Routine Malignant neoplasm of prostate (HCC) Expected: 04/29/2024, Expires: 07/29/2024 [facility] Comment on above: Expected: 04/29/2024, Expires: Start: 04-29-2024 End: 07-29-2024 Prostate specific Ag [Mass/volume] in Serum or Plasma PROSTATE-SPECIFIC ANTIGEN DIAGNOSTIC Lab Routine Malignant neoplasm of prostate (HCC) Expected: 04/29/2024, Expires: 07/29/2024 [facility] Comment on above: Expected: 04/29/2024, Expires: Start: 03-17-2024 Covid-19 Vaccine ( season) Covid-19 Vaccine () [facility] Start: 03-17-2024 Influenza vaccination Influenza Vaccine (#1) [facility] Start: 02-26-2024 End: 02-26-2024 Patient encounter procedure 02/26/2024 10:10 AM EDT Office Visit [facility] [address] [place] [id number] Long [employer] APRN-DIRECTOR OF MARKETING [address] [place] [address] [facility] Start: 11-03-2023 End: 02-02-2024 CBC W Auto Differential panel - Blood COMPLETE BLOOD COUNT AND DIFFERENTIAL Lab Routine Malignant neoplasm of prostate (HCC) Essential hypertension 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 pectoris, unspecified vessel or lesion type Type 2 diabetes mellitus without complication, without long-term current use of insulin (HCC) Lesion of skin of right ear Abdominal discomfort Expected: 11/03/2023, Expires: 02/02/2024 [facility] Work Phone: Comment on above: Expected: 11/03/2023, Expires: Start: 11-03-2023 End: 02-02-2024 Comprehensive metabolic 2000 panel - Serum or Plasma COMPREHENSIVE METABOLIC PANEL Lab Routine Malignant neoplasm of prostate (HCC) Essential hypertension 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 pectoris, unspecified vessel or lesion type Type 2 diabetes mellitus without complication, without long-term current use of insulin (HCC) Lesion of skin of right ear Abdominal discomfort Expected: 11/03/2023, Expires: 02/02/2024 [facility] Work Phone: Comment on above: Expected: 11/03/2023, Expires: Start: 11-03-2023 End: 02-02-2024 Prostate specific Ag [Mass/volume] in Serum or Plasma PROSTATE-SPECIFIC ANTIGEN DIAGNOSTIC Lab Routine Malignant neoplasm of prostate (HCC) Essential hypertension 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 pectoris, unspecified vessel or lesion type Type 2 diabetes mellitus without complication, without long-term current use of insulin (HCC) Lesion of skin of right ear Abdominal discomfort Expected: 11/03/2023, Expires: 02/02/2024 [facility] Work Phone: Comment on above: Expected: 11/03/2023, Expires: Start: 08-28-2023 End: 08-28-2023 Patient encounter procedure 08/28/2023 11:25 AM EST Office Visit [facility] [address] [place] [address] Long Boo, STAMPING MACHINE OPERATOR-DIRECTOR OF MARKETING [address] [place] [address] Arrived [facility] Comment on above: Arrived Start: 07-28-2023 End: 09-27-2023 CBC W Auto Differential panel - Blood CBC + DIFF Lab Routine Malignant neoplasm of prostate (HCC) 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 pectoris, unspecified vessel or lesion type Essential hypertension Type 2 diabetes mellitus without complication, without long-term current use of insulin (HCC) Expected: 07/28/2023, Expires: 09/27/2023 [facility] Work Phone: Comment on above: Expected: 07/28/2023, Expires: Start: 07-28-2023 End: 09-27-2023 Comprehensive metabolic 2000 panel - Serum or Plasma COMP METABOLIC PANEL Lab Routine Malignant neoplasm of prostate (HCC) 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 pectoris, unspecified vessel or lesion type Essential hypertension Type 2 diabetes mellitus without complication, without long-term current use of insulin (HCC) Expected: 07/28/2023, Expires: 09/27/2023 [facility] Work Phone: Comment on above: Expected: 07/28/2023, Expires: Start: 07-28-2023 End: 09-27-2023 Prostate specific Ag [Mass/volume] in Serum or Plasma PSA/PROSTSPECAG DIAG Lab Routine Malignant neoplasm of prostate (HCC) 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 pectoris, unspecified vessel or lesion type Essential hypertension Type 2 diabetes mellitus without complication, without long-term current use of insulin (HCC) Expected: 07/28/2023, Expires: 09/27/2023 [facility] Work Phone: Comment on above: Expected: 07/28/2023, Expires: Start: 07-17-2023 Advance Directive Discussion Advance Directive Discussion [facility] Start: 07-17-2023 Behavioral Health Screening Behavioral Health Screening [facility] Start: 06-19-2023 Urine microalbumin profile [facility] Start: 05-03-2023 End: 07-03-2023 Basic metabolic 2000 panel - Serum or Plasma BASIC METABOLIC PNL Lab Routine Malignant neoplasm of prostate (HCC) Expected: 05/03/2023 (Approximate), Expires: 07/03/2023 [facility] Work Phone: Comment on above: Expected: 05/03/2023 (Approximate), Expi res: 07/03/2023 Start: 05-03-2023 End: 07-03-2023 CBC W Auto Differential panel - Blood CBC + DIFF Lab Routine Malignant neoplasm of prostate (HCC) Expected: 05/03/2023 (Approximate), Expires: 07/03/2023 [facility] Work Phone: Comment on above: Expected: 05/03/2023 (Approximate), Expi res: 07/03/2023 Start: 05-03-2023 End: 07-03-2023 Prostate specific Ag [Mass/volume] in Serum or Plasma PSA/PROSTSPECAG DIAG Lab Routine Malignant neoplasm of prostate (HCC) Expected: 05/03/2023 (Approximate), Expires: 07/03/2023 [facility] Work Phone: Comment on above: Expected: 05/03/2023 (Approximate), Expi res: 07/03/2023 Start: 05-03-2023 End: 07-03-2023 Testosterone [Mass/volume] in Serum or Plasma TESTOSTERONE TOTAL Lab Routine Malignant neoplasm of prostate (HCC) Expected: 05/03/2023 (Approximate), Expires: 07/03/2023 [facility] Work Phone: Comment on above: Expected: 05/03/2023 (Approximate), Expi res: 07/03/2023 Start: 03-17-2023 Covid-19 Vaccine () Covid-19 Vaccine () [facility] Start: 03-17-2023 Influenza vaccination [facility] Start: 02-16-2023 Adult depression screening assessment DEPRESSION SCREENING [facility] Start: 02-09-2023 End: 04-11-2023 CBC W Auto Differential panel - Blood CBC + DIFF Lab Routine Malignant neoplasm of prostate (HCC) 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 pectoris, unspecified vessel or lesion type Essential hypertension Type 2 diabetes mellitus without complication, without long-term current use of insulin (HCC) Expected: 02/09/2023, Expires: 04/11/2023 [facility] Work Phone: Comment on above: Expected: 02/09/2023, Expires: Start: 02-09-2023 End: 04-11-2023 Comprehensive metabolic 2000 panel - Serum or Plasma COMP METABOLIC PANEL Lab Routine Malignant neoplasm of prostate (HCC) 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 pectoris, unspecified vessel or lesion type Essential hypertension Type 2 diabetes mellitus without complication, without long-term current use of insulin (HCC) Expected: 02/09/2023, Expires: 04/11/2023 [facility] Work Phone: Comment on above: Expected: 02/09/2023, Expires: Start: 02-09-2023 End: 04-11-2023 Prostate specific Ag [Mass/volume] in Serum or Plasma PSA/PROSTSPECAG DIAG Lab Routine Malignant neoplasm of prostate (HCC) 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 pectoris, unspecified vessel or lesion type Essential hypertension Type 2 diabetes mellitus without complication, without long-term current use of insulin (HCC) Expected: 02/09/2023, Expires: 04/11/2023 [facility] Work Phone: Comment on above: Expected: 02/09/2023, Expires: Start: 11-10-2022 Adult depression screening assessment DEPRESSION SCREENING [facility] Start: 08-22-2022 COVID-19 VACCINE (6 - Moderna series) COVID-19 VACCINE (6 - Moderna series) [facility] Start: 07-17-2022 ADVANCE DIRECTIVE DISCUSSION ADVANCE DIRECTIVE DISCUSSION [facility] Start: 07-17-2022 DEPRESSION ASSESSMENT DEPRESSION ASSESSMENT [facility] Start: 05-03-2022 Adult depression screening assessment DEPRESSION SCREENING [facility] Start: 05-03-2022 End: 07-03-2022 CBC W Auto Differential panel - Blood CBC + DIFF Lab Routine Malignant neoplasm of prostate (HCC) Expected: 05/03/2022, Expires: 07/03/2022 [facility] Work Phone: Comment on above: Expected: 05/03/2022, Expires: 2 Start: 05-03-2022 End: 07-03-2022 Comprehensive metabolic 2000 panel - Serum or Plasma COMP METABOLIC PANEL Lab Routine Malignant neoplasm of prostate (HCC) Expected: 05/03/2022, Expires: 07/03/2022 [facility] Work Phone: Comment on above: Expected: 05/03/2022, Expires: 2 Start: 05-03-2022 End: 07-03-2022 Prostate specific Ag [Mass/volume] in Serum or Plasma PSA/PROSTSPECAG DIAG Lab Routine Malignant neoplasm of prostate (HCC) Expected: 05/03/2022, Expires: 07/03/2022 [facility] Work Phone: Comment on above: Expected: 05/03/2022, Expires: 2 Start: 03-17-2022 Influenza vaccination [facility] Start: 11-02-2021 End: 01-02-2022 CBC W Auto Differential panel - Blood CBC + DIFF Lab Routine Malignant neoplasm of prostate (HCC) Expected: 11/02/2021, Expires: 01/02/2022 [facility] Work Phone: Comment on above: Expected: 11/02/2021, Expires: 2 Start: 11-02-2021 End: 01-02-2022 Comprehensive metabolic 2000 panel - Serum or Plasma COMP METABOLIC PANEL Lab Routine Malignant neoplasm of prostate (HCC) Expected: 11/02/2021, Expires: 01/02/2022 [facility] Work Phone: Comment on above: Expected: 11/02/2021, Expires: 2 Start: 09-14-2021 COVID-19 VACCINE (5 - Booster) COVID-19 VACCINE (5 - Booster) [facility] Start: 08-17-2021 COVID-19 VACCINE (4 - Booster for Moderna series) COVID-19 VACCINE (4 - Booster for Moderna series) [facility] Start: 07-17-2021 ADVANCE DIRECTIVE DISCUSSION ADVANCE DIRECTIVE DISCUSSION [facility] Start: 07-17-2021 DEPRESSION ASSESSMENT DEPRESSION ASSESSMENT [facility] Start: 02-22-2021 COVID-19 VACCINE (3 - Booster for Moderna series) COVID-19 VACCINE (3 - Booster for Moderna series) [facility] Start: 06-07-2015 PNEUMOVAX AGE 65 AND OVER WITH 5YR LOOKBACK (#1) PNEUMOVAX AGE 65 AND OVER WITH 5YR LOOKBACK (#1) [facility] Start: 06-20-2013 Urine microalbumin profile DTAP,TDAP,TD (1 - Tdap) [facility] Start: 08-22-2012 SHINGRIX VACCINE (2 of 3) SHINGRIX VACCINE (2 of 3) [facility] Start: 2006 RSV Vaccine (1 - 1-dose 60+ series) RSV Vaccine (1 - 1-dose 60+ series) [facility] Start: 02-14-1996 SHINGRIX VACCINE (1 of 2) SHINGRIX VACCINE (1 of 2) [facility] [place] Start: 1991 COLOGUARD (FIT-DNA) COLOGUARD (FIT-DNA) [facility] Start: 1991 Colonoscopy COLONOSCOPY [facility] Start: 1991 COLORECTAL CANCER SCREENING COLORECTAL CANCER SCREENING [facility] Start: [address] COLONOGRAPHY [facility] Start: 1991 DIABETES SCREEN DIABETES SCREEN [facility] Start: 1991 FECAL OCCULT BLOOD FECAL OCCULT BLOOD [facility] Start: 1991 SIGMOIDOSCOPY SIGMOIDOSCOPY [facility] Start: 1981 LIPID SCREEN LIPID SCREEN [facility] Start: 02-14-1964 Anxiety Screening Anxiety Screening [facility] Start: 02-14-1964 Depression Screening Depression Screening [facility] Start: 02-14-1964 HEPATITIS C SCREENING HEPATITIS C SCREENING [facility] Start: 02-14-1964 Hepatitis C screening Hepatitis C Screening [facility] Dermatopathology exam Dermatopat hology exam Pathology and Cytology Timed Neoplasm of unspecified behavior of bone, soft tissue, and skin Release Upon Ordering for 1 Occurrences starting 08/28/2023 [facility] Work Phone: Comment on above: Release Upon Ordering for 1 Occurrences starting 08/28/2023 MR Cervical spine WO contrast [facility] US Extremity [facility] Immunizations Immunization Date Immunization Notes Care Provider Iris quinonez 03-26-2024 influenza, high dose seasonal, preservative-free [facility] 05-01-2023 influenza virus vaccine, unspecified formulation [facility] 05-01-2023 influenza, high dose seasonal, preservative-free Jamar Fall Other [facility] 04-28-2022 influenza nasal, unspecified formulation [facility] Work Phone: [facility] 04-28-2022 influenza, high-dose , quadrivalent vaccine (FLUZONE HIGH DOSE QUADRIVALENT) [facility] Work Phone: [facility] 04-28-2022 influenza, high dose seasonal, preservative-free Jamar Fall Other [facility] 04-28-2022 influenza virus vaccine, unspecified formulation [facility] Work Phone: [facility] 04-21-2022 COVID-19 booster vaccine, age 12+ yr, bivalent (MODERNA) [facility] Work Phone: [facility] Comment on above: Result Comment: 2023: [id number] 01-21-2022 COVID-19 Vaccine Moderna - Documentation Purposes Only Jamar Fall Other [facility] Comment on above: Result Comment: 2023: [id number] 05-17-2021 COVID-19 Vaccine Moderna - Documentation Purposes Only Jamar Fall Other [facility] Comment on above: Result Comment: 2023: [id number] 04-22-2021 influenza virus vaccine, split virus (incl. purified surface antigen) Jamar Juan David Other [facility] 04-22-2021 influenza virus vaccine, unspecified formulation [facility] 04-16-2021 influenza nasal, unspecified formulation Marco A Esqueda MD Work Phone: [facility] 04-16-2021 influenza virus vaccine, unspecified formulation Anthony SCRUGGS [facility] 09-22-2020 COVID-19 Vaccine Moderna - Documentation Purposes Only Jamar Juan David Other [facility] 08-26-2020 SARS-CoV-2 (COVID-19 ) Ad26 vaccine, recombinant Anthony SCRUGGS [facility] 08-24-2020 COVID-19 original vaccine, full dose, monovalent (MODERNA) [facility] Work Phone: [facility] 07-17-2020 SARS-CoV-2 (COVID-19 ) [id number] vaccine Anthony SCRUGGS [facility] Comment on above: Result Comment: pt d oes not know the dates but states that he is fully vaccinated 04-23-2020 influenza virus vaccine, split virus (incl. purified surface antigen) Jamar Juan David Other [facility] 04-23-2020 influenza virus vaccine, unspecified formulation [facility] 04-22-2019 influenza virus vaccine, split virus (incl. purified surface antigen) Jamar Fall Other [facility] 04-22-2019 influenza virus vaccine, unspecified formulation [facility] 04-16-2019 influenza nasal, unspecified formulation Marco A Esqueda MD Work Phone: [facility] 08-20-2018 zoster vaccine recombinant Marco A Esqueda MD Work Phone: [facility] 06-11-2018 zoster vaccine recombinant Marco A Esqueda MD Work Phone: [facility] 04-16-2018 influenza nasal, unspecified formulation Marco A Esqueda MD Work Phone: [facility] 03-27-2018 AS03 adjuvant [facility] Work Phone: [facility] 03-27-2018 influenza nasal, unspecified formulation [facility] Work Phone: [facility] 03-27-2018 influenza virus vaccine, split virus (incl. purified surface antigen) Jamar Fall Other [employer] Other 03-27-2018 influenza virus vaccine, unspecified formulation Anthony SCRUGGS [facility] 03-27-2018 Seasonal trivalent influenza vaccine, adjuvanted, preservative free Marco A Esqueda MD Work Phone: [facility] 06-12-2017 pneumococcal polysaccharide vaccine, 23 valent Marco A Esqueda MD Work Phone: [facility] 06-01-2017 pneumococcal polysaccharide vaccine, 23 valent Jamar Fall Other [facility] 06-01-2017 Prevnar 20 Jamar Fall Other [facility] 05-31-2017 influenza nasal, unspecified formulation [place] Work Phone: [facility] 05-31-2017 influenza virus vaccine, unspecified formulation Anthony SCRUGGS [facility] 05-31-2017 influenza, injectabl e, quadrivalent, preservative free Marco A Esqueda MD Work Phone: [facility] 04-03-2017 influenza nasal, unspecified formulation [facility] Work Phone: [facility] 04-03-2017 influenza virus vaccine, split virus (incl. purified surface antigen) Jamar Fall Other [employer] Other 04-03-2017 influenza virus vaccine, unspecified formulation Anthony SCRUGGS [facility] 04-03-2017 influenza, high dose seasonal, preservative-free Marco A Esqueda MD Work Phone: [facility] 03-23-2017 influenza nasal, unspecified formulation Marco A Esqueda MD Work Phone: [facility] 04-01-2016 influenza virus vaccine, split virus (incl. purified surface antigen) Jamar Fall Other [facility] 04-01-2016 influenza virus vaccine, unspecified formulation [facility] 03-31-2016 influenza nasal, unspecified formulation Marco A Esqueda MD Work Phone: [facility] 05-11-2015 influenza nasal, unspecified formulation Marco A Esqueda MD Work Phone: [facility] 05-11-2015 influenza, seasonal, injectable, preservative free [facility] Work Phone: [facility] 05-11-2015 pneumococcal conjuga te vaccine, 13 valent Marco A Esqueda MD Work Phone: [facility] 04-29-2015 pneumococcal polysaccharide vaccine, 23 valent Marco A Esqueda MD Work Phone: [facility] 06-09-2014 influenza nasal, unspecified formulation [place] Work Phone: [facility] 06-09-2014 influenza, seasonal, injectable, preservative free Marco A Esqueda MD Work Phone: [facility] 06-19-2013 diphtheria, tetanus toxoids and acellular pertussis vaccine, unspecified formulation Marco A Esqueda MD Work Phone: [facility] 06-19-2013 tetanus and diphther ia toxoids, not adsorbed, for adult use Marco A Esqueda MD Work Phone: [facility] 05-23-2013 influenza nasal, unspecified formulation Marco A Esqueda MD Work Phone: [facility] 04-24-2013 tetanus and diphther ia toxoids, adsorbed, preservative free, for adult use (5 Lf of tetanus toxoid and 2 Lf of diphtheria toxoid) Jamar Fall Other [facility] 06-27-2012 zoster vaccine, live Marco A lake MD Work Phone: [facility] 06-11-2012 influenza nasal, unspecified formulation Marco A Esqueda MD Work Phone: [facility] 06-02-2011 influenza nasal, unspecified formulation Marco A Esqueda MD Work Phone: [facility] 06-23-2010 pneumococcal polysaccharide vaccine, 23 valent Jamar Fall Other [facility] 06-07-2010 pneumococcal polysaccharide vaccine, 23 valent Marco A Esqueda MD Work Phone: [facility] 06-07-2010 pneumococcal vaccine , unspecified formulation Marco A Esqueda MD Work Phone: [facility] 05-28-2010 influenza nasal, unspecified formulation Marco A Esqueda MD Work Phone: [facility] 01-14-2010 pneumococcal polysaccharide vaccine, 23 valent Jamar Fall Other [facility] 05-25-2009 influenza nasal, unspecified formulation Marco A Esqueda MD Work Phone: [facility] 06-09-2008 influenza nasal, unspecified formulation Marco A Esqueda MD Work Phone: [facility] 07-23-2003 influenza virus vaccine, whole virus Marco A Esqueda MD Work Phone: [facility] 01-14-2003 diphtheria, tetanus toxoids and acellular pertussis vaccine, unspecified formulation Jamar Fall Other [facility] 01-10-2003 TD(adult) unspecifie d formulation Marco A Esqueda MD Work Phone: [facility] 07-03-2002 influenza nasal, unspecified formulation Marco A Esqueda MD Work Phone: [facility] Payers Date Payer Category Payer Unknown MMO MMO MEDICARE SUPPLEMENT [id number] 2019-Present [phone] [address] [place] [address] Indemnity [id number] 2019 Unknown [id number] 2011 Medicare MEDICARE MEDICAR E A AND B [id number] 2011-Present [phone] [address] [address] [place] [address] Medicare [id number] 2011 Medicare [id number] 1959 Medicare [id number] 1959 Self-pay 1959 Unknown [id number] 1946 Unknown [id number] [id number] 1946 Unknown [id number] 2.16.840.1.006239.3.579.2.593 1946 Unknown [id number] 2.16.840.1.346203.3.579.2.593 1946 Unknown [id number] 2.16.840.1.814312.3.579.2.593 1946 Unknown [id number] 2.16.840.1.307486.3.579.2.593 1946 Unknown [id number] 2.16.840.1.272670.3.579.2.1259 1946 Unknown [id number] 2.16.840.1.197212.3.579.2.1259 1946 Unknown [id number] 2.16.840.1.123807.3.579.2.125 1946 Unknown [id number] 2.16.840.1.027125.3.579.2.1259 1946 Unknown [id number] 2.16.840.1.045004.3.579.2.1259 1946 Unknown [id number] 2.16.840.1.557790.3.579.2.727 1946 Unknown [id number] 2.16.840.1.415511.3.579.2.727 1946 Unknown [id number] 2.16.840.1.173999.3.579.2.727 Unknown [id number] [id number] Unknown [id number] Unknown [id number] Social History Date Type Detail Facility Start: 11-08-2021 End: 08-11-2022 Tobacco smoking status NHIS Never smoked tobacco [facility] Start: 10-25-2021 End: 11-02-2023 Alcohol intake Current drinker of alcohol (finding) [facility] Start: 08-19-2014 History SDOH Alcohol Comment 1 day/wk [facility] Start: 1945 Sex Assigned At Not on file [facility] Start: 10-18-2021 End: 05-12-2022 Exposure to SARS-CoV-2 (event) Not sure [facility] Tobacco smoking status Never [facility] Start: 02-02-2023 End: 01-31-2024 Sex Assigned At Male [facility] Start: 1945 Sex Assigned At Male [facility] Start: 01-12-2018 End: 08-11-2022 Tobacco use and exposure Smokeless tobacco non-user [facility] Start: 02-02-2023 End: 01-31-2024 History of Social function [facility] Start: 02-11-2022 Gender identity Identifies as male gender (finding) [facility] Start: 02-11-2022 Sexual orientation Heterosexual (fin irish) [facility] How often to you hav e a [...] 09-06-2023 Tobacco smoking status NHIS Ex-smoker (finding) [facility] NEGATED: Highlighted rowStart: CARISSAF History of tobacco use Passive smoker [facility] Medical Equipment Procedure Code Equipment Code Equipment Origin al Text Equipment Identifier Dates Start: 10-26-2021 End: 05-12-2022 Comment on above: 1 Each once daily. T o test blood sugars 1 Each once daily. T o test blood sugar Blood Sugar Diagnostic (Contour Next Test Strips) strip Start: 10-10-2023 [place] [facility] [place]: 09-08-2023 Blood Sugar Diagnostic (Contour Next Test Strips) strip Start: 09-08-2023 End: 10-10-2023 Blood Sugar Diagnostic (Contour Next Test Strips) strip Start: 10-10-2023 [place] [facility] [place]: 09-08-2023 Blood Sugar Diagnostic (Contour Next Test Strips) strip Start: 09-08-2023 End: 10-10-2023 Functional Status Date Assessment Result Facility 04-19-2024 Functional Status N/A [facility] 10-20-2023 Functional Status N/A [facility] 04-17-2023 Functional Status N/A [facility] 05-13-2022 Functional Status N/A [facility] Clinical Notes 07-17-2014 to 05-08-2024 Telephone Encounter - Aida Luo RPh - 05/08/2024 8:53 AM EDTTelephone Encounter - Aida Luo RPh - 05/08/2024 8:53 AM EDMarco A Iverson MD - 05/08/2024 8:13 AM EDT Note Date & Type Note Facility 05-08-2024 Telephone encounter Note This prescription confirms Pablo' re-enrollment in the Xtandi free drug program for 2024. Thank you Josh Luo PharmD, BCOP [facility] Work Phone: 05-08-2024 Miscellaneous Notes This prescription confirms Pablo' re-enrollment in the Xtandi free drug program for 2024. Thank you Josh Luo PharmD, BCOP documented in this encounter [facility] 05-08-2024 Note HNO ID: [id number] Author: MARCO A ESQUEDA MD Service: ? Author Type: Physician Type: Progress Notes Filed: 05/10/2024 07:40 Note Text: PATIENT NAME: Pablo Felix DATE: 05/09/2024 PRIMARY CARE PHYSICIAN: Dr. Jamar Fall OTHER PHYSICIANS: Dr. Anthony Scruggs, Dr. Khan, [facility] Cardiology Portions of this encounter note [...] mg 24 hr tablet Take by mouth. Bgzqfipkyyeps-Uruwihfp-Ybohyx (MULTIVITAMIN 50 PLUS) tab Take 1 tablet [...] Radical retropubic prostatectomy and bilateral pelvic lymphadenectomy ([facility]) Poorly differentiated prostatic adenocarcinoma of left [...] 0.11 10/25/2022 0.1 (more content not included)... [facility] 05-08-2024 History of Present illness Narrative PATIENT NAME: Pablo Felix DATE: 05/09/2024 PRIMARY CARE PHYSICIAN: Dr. Jamar Fall OTHER PHYSICIANS: Dr. Anthony Scruggs, Dr. Khan, [facility] Cardiology Portions of this encounter note [...] mg 24 hr tablet Take by mouth. Qdszoplqnmtjw-Yqqgkzum-Zyrvuu (MULTIVITAMIN 50 PLUS) tab Take 1 tablet [...] Radical retropubic prostatectomy and bilateral pelvic lymphadenectomy ([facility]) Poorly differentiated prostatic adenocarcinoma of left [...] 05/03/2024 0.18 RADIOLOGY/OTHER STUDIES: 11/05/2021 CT chest/abdomen/pelvis ([facility]) Several sclerotic lesions consistent with metastatic disease. No evidence of visceral organ involvement or lymphadenopathy. 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 01/22/2018 Nuclear bone scan ([facility]) New focal increased activity left frontal bone, left T8 vertebral body. 01/22/2018 MRI pelvis ([facility]) 4.5 cm area of T2 signal in the prostate bed. 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 Stable on current medications. Continue per [...] Dr. Anthony Scruggs documented in this encounter [facility] 04-19-2024 Hospital Discharge instructions Patient Education 04/19/2024 [...] the likelihood that the cancer will spread. Telford 6 or lower: This indicates that the cancer cells look similar to normal prostate cells (well differentiated). Lucrecia 7: This indicates that the cancer cells look somewhat similar to normal prostate cells (moderately differentiated). Telford 8, 9, or 10: This indicates that [...] stress of having cancer. General instructions Take wuhy-pdh-hetnkfn and prescription medicines only as told by your health care provider. If you have to go to the hospital, notify your cancer specialist (oncologist). Keep all follow-up visits. This is important. Where to find more information [employer]: www.cancer.org [place] Society of Clinical Oncology: www.cancer.net National Cancer Jackson: www.cancer.gov Contact a health care provider if: [...] provider. Document Revised: 09/29/2021 Document Reviewed: 09/29/2021 [employer] Patient Education 2023 [employer]. Follow Up Care 10/20/2023 09:58:12 With:KAEL JAMES, Anthony Lee, URL Address: [address] [place] [address]- When: Unknown [facility] 04-19-2024 Note Patient Education Oncology Prostate Cancer [...] to normal prostate cells (well differentiated). ? Telford 7: This indicates that the cancer cells look somewhat similar to normal prostate cells (moderately differentiated). ? Telford 8, 9, or 10: This indicates that [...] the prostate gla (more content not included)... [facility] 04-01-2024 Telephone encounter Note Recd phone call from [facility] that they are unable to obtain the Xtandi 80mg tablets a this time and requested a script for the 40 mg dosing. Order pending Josh Luo PharmD, BCOP [facility] Work Phone: 04-01-2024 Miscellaneous Notes Recd phone call from [facility] that they are unable to obtain the Xtandi 80mg tablets a this time and requested a script for the 40 mg dosing. Order pending Josh Luo, Jose Enrique, BCOP documented in this encounter [facility] 03-29-2024 Note Coronary artery dise ase is stable, no concerning symptoms currently overall is doing well he is planning bilateral carpal tunnel surgery soon with Dr. Charlton. Continue GDMT-continue aspirin, Lipitor, metoprolol, and lisinopril continue risk factor modifications- heart healthy diet, regular exercise as tolerated and continue all medications. [facility] 03-29-2024 Note Hypertension is well -controlled at 127/51 Continue lisinopril/hydrochlorothiazide and metoprolol. Renal function normal [facility] 03-29-2024 Note Lipid abnormalities are stable continue Lipitor 40 mg daily lipid profile is well-controlled and liver function is normal [facility] 03-29-2024 Note Reviewed echocardiog tabby from July 08 moderate aortic stenosis noted and reviewed echo with patient and his No concerning symptoms at this time patient would like symptoms including palpitations, lightheaded dizziness, syncope, chest pain, worsening shortness of breath and he voiced understanding Monitor with echocardiogram [facility] 03-29-2024 Note RCRI=1 points Class II Risk 6.0 % 30-day risk of , NM, or cardiac arrest From a cardiac perspective pt may proceed with carpal tunnel surgery, he is a moderate risk for a low risk surgery. She may hold aspirin 5-7 days prior and resume post op. Please monitor hemodynamics carefully and prevent any major fluid shifts. [facility] 03-29-2024 Note Pt is here for surge ry clearance. Pt denies chest pain, sob, palpatations Review of Systems Musculoskeletal: Positive for arthritis, back pain, joint pain and myalgias. All other systems reviewed and are negative. [facility] 03-29-2024 Note [facility] CARDIOLOGY PROGR ESS NOTE [...] stenosis and regur (more content not included)... [facility] 02-02-2024 Instructions Lynne Alarcon APRN.CNP - 02/02/2024 [...] swallowing, increasing confusion documented in this encounter [facility] 02-02-2024 History of Present illness Narrative PATIENT NAME: Pablo Felix DATE: February 02, 2024 PRIMARY CARE PHYSICIAN: Dr. Jamar Fall OTHER PHYSICIANS: Dr. Anthony Scruggs, Dr. Khan, [facility] Cardiology This note was copied from [...] mg 24 hr tablet Take by mouth. Ysqkpcwlputju-Fmpmsbev-Qveqye (MULTIVITAMIN 50 PLUS) tab Take 1 tablet [...] Radical retropubic prostatectomy and bilateral pelvic lymphadenectomy ([facility]) Poorly differentiated prostatic adenocarcinoma of left [...] 01/25/2024 0.15 RADIOLOGY/OTHER STUDIES: 11/05/2021 CT chest/abdomen/pelvis ([facility]) Several sclerotic lesions consistent with metastatic disease. No evidence of visceral organ involvement or lymphadenopathy. 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 01/22/2018 Nuclear bone scan ([facility]) New focal increased activity left frontal bone, left T8 vertebral body. 01/22/2018 MRI pelvis ([facility]) 4.5 cm area of T2 signal in the prostate bed. 07/24/2014 CT [place] Diffuse prostatic enlargement with indentation of the [...] consistent with stage IIIC (pT2b, N0, M0), Telford 5+4 equal 9. Postop the patient's PSA [...] suppressed at <12. Bone scan obtained at [facility] 11/05/2021 revealed multiple bone metastases. 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 Stable on current medications. Continue per [...] up. Lynne Alarcon APRN.CNP Hematology/Oncology [facility] [phone] CC: Dr. Anthony Scruggs documented in this encounter [facility] 02-02-2024 Note HNO ID: [id number] Author: LYNNE ALARCON APRN.ALEXA Service: ? Author Type: Nurse Practitioner Type: Progress Notes Filed: 02/02/2024 11:37 Note Text: PATIENT NAME: Pablo Felix DATE: February 02, 2024 PRIMARY CARE PHYSICIAN: Dr. Jamar Fall OTHER PHYSICIANS: Dr. Anthony Scruggs, Dr. Khan, [facility] Cardiology This note was copied from [...] mg 24 hr tablet Take by mouth. Rgpugkwtzqqzj-Xsgsimjk-Qsayww (MULTIVITAMIN 50 PLUS) tab Take 1 tablet [...] Radical retropubic prostatectomy and bilateral pelvic lymphadenectomy ([facility]) Poorly differentiated prostatic adenocarcinoma of left [...] 0.43 09/07/2020 0.84 (more content not included)... [facility] 11-02-2023 Note HNO ID: [id number] Author: CHRISTO HOWARD APRN.DIRECTOR OF MARKETING Service: ? Author Type: Nurse Practitioner Type: Progress Notes Filed: 11/03/2023 11:11 Note Text: PATIENT NAME: Pablo Felix DATE: 11/02/2023 PRIMARY CARE PHYSICIAN: Dr. Jamar Fall OTHER PHYSICIANS: Dr. Anthony Scruggs, Dr. Khan, [facility] Cardiology Portions of this encounter note [...] mg 24 hr tablet Take by mouth. Vxwbdhsfbjtzl-Jfzhzblk-Tdvfrx (MULTIVITAMIN 50 PLUS) tab Take 1 tablet [...] Radical retropubic prostatectomy and bilateral pelvic lymphadenectomy ([facility]) Poorly differentiated prostatic adenocarcinoma of left [...] <0.13 09/26/2019 0.09 (more content not included)... [facility] 11-02-2023 History of Present illness Narrative PATIENT NAME: Pablo Felix DATE: 11/02/2023 PRIMARY CARE PHYSICIAN: Dr. Jamar Fall OTHER PHYSICIANS: Dr. Anthony Scruggs, Dr. Khan, [facility] Cardiology Portions of this encounter note [...] mg 24 hr tablet Take by mouth. Xgpwiyugajskl-Pycxjowq-Vhlohw (MULTIVITAMIN 50 PLUS) tab Take 1 tablet [...] Radical retropubic prostatectomy and bilateral pelvic lymphadenectomy ([facility]) Poorly differentiated prostatic adenocarcinoma of left [...] 10/29/2023 0.16 RADIOLOGY/OTHER STUDIES: 11/05/2021 CT chest/abdomen/pelvis ([facility]) Several sclerotic lesions consistent with metastatic disease. No evidence of visceral organ involvement or lymphadenopathy. 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 01/22/2018 Nuclear bone scan ([facility]) New focal increased activity left frontal bone, left T8 vertebral body. 01/22/2018 MRI pelvis ([facility]) 4.5 cm area of T2 signal in the prostate bed. 07/24/2014 CT [place] Diffuse prostatic enlargement with indentation of the [...] consistent with stage IIIC (pT2b, N0, M0), Telford 5+4 equal 9. Postop the patient's PSA [...] suppressed at <12. Bone scan obtained at [facility] 11/05/2021 revealed multiple bone metastases. 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 Stable on current medications. Continue per [...] which included preparing to see the patient, vmxp-tv-iyst patient care, completing clinical documentation, obtaining and/or reviewing separately obtained history, performing a medically appropriate examination, counseling and educating the patient/family/caregiver, ordering medications, tests, or procedures, independently interpreting results (not separately reported), and communicating results to the patient/family/caregiver. documented in this encounter [facility] 10-20-2023 Hospital Discharge instructions Patient Education 10/20/2023 [...] under a microscope. This is called the Telford score and the total score can range [...] similar to normal prostate cells (moderately differentiated). Telford 8, 9, or 10: This indicates that [...] stress of having cancer. General instructions Take swqf-bfq-cvtskgc and prescription medicines only as told by your health care provider. If you have to go to the hospital, notify your cancer specialist (oncologist). Keep all follow-up visits. This is important. Where to find more information [employer] Cancer [employer]: www.cancer.org [employer] Society of Clinical Oncology: www.cancer.net National Cancer Jackson: www.cancer.gov Contact a health care provider if: [...] Document Reviewed: 09/29/2021 Elsevier Patient Education 2022 Happ[employer]. Follow Up Care 04/17/2023 09:25:02 With:KAEL JAMES, Anthony Lee, URL Address: [address] [place], [place] [id number]- When: Unknown [facility] 08-28-2023 History of Present illness Narrative [...] limited to risks of scarring, darker or shape carver pigmentary changes, recurrence, incomplete removal and infection. [...] results, 6 months documented in this encounter [facility] 08-24-2023 Evaluation note Encounter Date [...] use, the patient reduces the risk for NM, CVA, HTN, cardiac dysrhythmias and sudden cardiac [...] retention cyst and frontal sinus mass benign [employer] 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 Other 01-18-2024 NoteHNO ID: [id number] Author: MARCO A ESQUEDA MD Service: ? Author Type: Physician Type: Progress Notes Filed: 08/04/2023 06:33 Note Text: PATIENT NAME: Pablo Felix DATE: 08/03/2023 PRIMARY CARE PHYSICIAN: Dr. Jamar Fall OTHER PHYSICIANS: Dr. Anthony Scruggs, Dr. Khan, [facility] Cardiology Portions of this encounter note [...] mg 24 hr tablet Take by mouth. 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 Left base margin positive for neoplasm. Seminal vesicles with no diagnostic abnormality. 2 resected lymph nodes negative for neoplasm. LABS: Hemoglobin (g/dL) Date Value 07/27/2023 11.8 05/08/2018 12.8 Hematocrit (%) Date Value 07/27/2023 34.8 05/08/2018 36.8 WBC (k/uL) Date Value 07/27/2023 6.43 05/08/2018 5.63 Platele (more content not included)...[facility]12-07-2023 Note [facility] Cardiology Clinic Note Chief Complaint: Patient here [...] should problems arise Bridger Mulligan MD, MPH, [facility], [facility], [facility] Interventional Cardiology Pager Email: [email or web address] Evaluation note* Encounter Date Diagnosis Assessment [...] ENT since scheduling appt for sinus mass [employer] Other 10-16-2023 Evaluation note* Encounter Date Diagnosis [...] malignant neoplasm of bone (ICD-10 - C79.51) [employer] Other 10-12-2023 History of Present illness Narrative* Christo Howard, ROCHELLE.DIRECTOR OF MARKETING - 04/27/2023 10:00 AM EDT PATIENT NAME: Pablo Felix DATE: 04/27/2023 PRIMARY CARE PHYSICIAN: Dr. Jamar Fall OTHER PHYSICIANS: Dr. Anthony Scruggs, Dr. Khan, [facility] Cardiology Portions of this encounter note [...] mg 24 hr tablet Take by mouth. Jfneemjozbdan-Hzredsxh-Smaizb (MULTIVITAMIN 50 PLUS) tab Take 1 tablet [...] Radical retropubic prostatectomy and bilateral pelvic lymphadenectomy ([facility]) Poorly differentiated prostatic adenocarcinoma of left [...] 04/24/2023 0.12 RADIOLOGY/OTHER STUDIES: 11/05/2021 CT chest/abdomen/pelvis ([facility]) Several sclerotic lesions consistent with metastatic disease. No evidence of visceral organ involvement or lymphadenopathy. 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 01/22/2018 Nuclear bone scan ([facility]) New focal increased activity left frontal bone, left T8 vertebral body. 01/22/2018 MRI pelvis ([facility]) 4.5 cm area of T2 signal in the prostate bed. 07/24/2014 CT [place]vis [place] Diffuse prostatic enlargement with indentation of the bladder base. Incidental 2.5 x 1 cm exophytic hypodense lesion adjacent to the pancreatic body. ASSESSMENT/PLAN: 1. Metastatic prostate cancer (HCC) - ICD9: 185, ICD10: C61 (primary diagnosis) The patient was diagnosed with early-stage high-grade prostate cancer in June 2014 (TRUS [id number]/02/2014). He underwent a radical prostatectomy on 11/05/2014. [...] suppressed at <12. Bone scan obtained at [facility] 11/05/2021 revealed multiple bone metastases. 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 Stable on current medications. Continue per [...] monitor with repeat CT scan. Christo Howard APRN.DIRECTOR OF MARKETING CC: Dr. Anthony Scruggs I spent a total of 30 minutes on the date of the service which included preparing to see the patient, ajyi-pv-qhuf patient care, completing clinical documentation, obtaining and/or reviewing separately obtained history, performing a medically appropriate examination, counseling and educating the pat ient/family/caregiver, ordering medications, tests, or procedures, independently interpreting results (not separately reported), and communicating results to the patient/family/caregiver. documented in this encounterKindred Hospital [facility]ima10-03-2023 Evaluation note* Encounter Date Diagnosis Assessment Notes Treatment Notes Treatment Clinical Notes Apr, Pancreatic mass (ICD-10 - K86.89) [employer] Other [id number] Hospital Discharge instructions Patient Education 04/17/2023 09:18:19 [...] under a microscope. This is called the Telford score and the total score can range [...] similar to normal prostate cells (moderately differentiated). Telford 8, 9, or 10: This indicates that [...] stress of having cancer. General instructions Take ifyu-brq-tfjzzxp and prescription medicines only as told by your health care provider. If you have to go to the hospital, notify your cancer specialist (oncologist). Keep all follow-up visits. This is important. Where to find more information [employer]: www.cancer.org [place] [employer]: www.cancer.net [employer]: www.cancer.gov Contact a health care provider if: [...] provider. Document Revised: 09/29/2021 Document Reviewed: 09/29/2021 [employer] Patient Education 2022 [employer]. Follow Up Care 10/28/2022 08:37:57 With:KAEL JAMES, Anthony Lee, URL Address: [facility] [address] , [place] [address]- [phone] When: Unknown Comments:6 mos w/ PSA (and possible Lupron) [facility] 09-27-2023 Evaluation note* Encounter Date Diagnosis Assessment Notes Treatment Notes Treatment Clinical Notes Mar, Pancreatic mass (ICD-10 - K86.89) [place] [employer] Other 09-20-2023 Evaluation note* Encounter Date Diagnosis Assessment Notes Treatment Notes Treatment Clinical Notes Mar, Right upper quadrant abdominal pain (ICD-10 - R10.11) Diet instructions Lab to r/o acute infection, cholecystitis, pancreatitis GBUS vs CT abd based on results BLand, low fat diet Mar, Nausea (ICD-10 - R11.0) [place] , small/frequent feedings. Pepcid, Prilosec, Tums as [...] Microalbumin, Dilated eye exam and Foot exam [place] [employer] Other 08-30-2023 Evaluation note* Encounter Date Diagnosis [...] use, the patient reduces the risk for NM, CVA, HTN, cardiac dysrhythmias and sudden cardiac [...] exercise for 30 minutes, 3-5 times weekly. [employer] Other 07-23-2023 Evaluation note* Encounter Date Diagnosis Assessment Notes Treatment Notes Treatment Clinical Notes Jan, Left bundle-branch block, unspecified (ICD-10 - I44.7) [employer] Other 07-20-2023 History of Present illness Narrative* Marco A Esqueda MD - 02/02/2023 7:38 AM EDT PATIENT NAME: Pablo Felix DATE: 02/02/2023 PRIMARY CARE PHYSICIAN: Dr. Jamar Fall OTHER PHYSICIANS: Dr. Anthony Scruggs, Dr. Khan, [facility] Cardiology Portions of this encounter note [...] mg 24 hr tablet Take by mouth. Dkyncmnqiweow-Hexhhxcf-Rryjdv (MULTIVITAMIN 50 PLUS) tab Take 1 tablet [...] Radical retropubic prostatectomy and bilateral pelvic lymphadenectomy ([facility]) Poorly differentiated prostatic adenocarcinoma of left [...] 10/25/2022 0.13 RADIOLOGY/OTHER STUDIES: 11/05/2021 CT chest/abdomen/pelvis ([facility]) Several sclerotic lesions consistent with metastatic disease. No evidence of visceral organ involvement or lymphadenopathy. 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 01/22/2018 Nuclear bone scan ([facility]) New focal increased activity left frontal bone, left T8 vertebral body. 01/22/2018 MRI pelvis ([facility]) 4.5 cm area of T2 signal in the prostate bed. 07/24/2014 CT abdomen[place]vis [place] Diffuse prostatic enlargement with indentation of the bladder base. Incidental 2.5 x 1 cm exophytic hypodense lesion adjacent to the pancreatic body. ASSESSMENT/PLAN: 1. Metastatic prostate cancer (HCC) - ICD9: 185, ICD10: C61 (primary diagnosis) The patient was diagnosed with early-stage high-grade prostate cancer in June 2014 (TRUS [id number]/02/2014). He underwent a radical prostatectomy on 11/05/2014. [...] suppressed at <12. Bone scan obtained at [facility] 11/05/2021 revealed multiple bone metastases. 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 Stable on current medications. Continue per [...] CC: Dr. Anthony Scruggs documented in this encounterKindred Hospital [facility]ima04-27-2023 History of Present illness Narrative* Christo Howard APRN.DIRECTOR OF MARKETING - 11/10/2022 10:00 AM EDT PATIENT NAME: Pablo Felix DATE: 11/10/2022 PRIMARY CARE PHYSICIAN: Dr. Jamar Fall OTHER PHYSICIANS: Dr. Anthony Scruggs, Dr. Khan, [facility] Cardiology Portions of this encounter note [...] mg 24 hr tablet Take by mouth. Wopjznxkvczhi-Wfzppzex-Gordeo (MULTIVITAMIN 50 PLUS) tab Take 1 tablet [...] Radical retropubic prostatectomy and bilateral pelvic lymphadenectomy ([facility]) Poorly differentiated prostatic adenocarcinoma of left [...] PSA 0.13 RADIOLOGY/OTHER STUDIES: 11/05/2021 CT chest/abdomen/pelvis ([facility]) Several sclerotic lesions consistent with metastatic disease. No evidence of visceral organ involvement or lymphadenopathy. 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 01/22/2018 Nuclear bone scan ([facility]) New focal increased activity left frontal bone, left T8 vertebral body. 01/22/2018 MRI pelvis ([facility]) 4.5 cm area of T2 signal in the prostate bed. 07/24/2014 CT abdomen[place]pelvis [place] Diffuse prostatic enlargement with indentation of the bladder base. Incidental 2.5 x 1 cm exophytic hypodense lesion adjacent to the pancreatic body. ASSESSMENT/PLAN: 1. Metastatic prostate cancer (HCC) - ICD9: 185, ICD10: C61 (primary diagnosis) The patient was diagnosed with early-stage high-grade prostate cancer in June 2014 (TRUS [id number]/02/2014). He underwent a radical prostatectomy on 11/05/2014. Pathology consistent with stage IIIC (pT2b, N0, M0), Telford 5+4 equal 9. Postop the patient's PSA [...] suppressed at <12. Bone scan obtained at [facility] 11/05/2021 revealed multiple bone metastases. 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 Stable on current medications. Continue per [...] which included preparing to see the patient, xkgc-pv-dhhi patient care, completing clinical documentation, obtaining and/or reviewing separately obtained history, performing a medically appropriate examination, counseling and educating the pat ient/family/caregiver, ordering medications, tests, or procedures, independently interpreting results (not separately reported), and communicating results to the patient/family/caregiver. documented in this encounterKindred Hospital [facility]ima03-03-2023 Evaluation note* Encounter Date Diagnosis Assessment Notes [...] injection w/ Kenalog, may increase BS slightly [employer] Other 02-24-2023 Evaluation note* Encounter Date Diagnosis [...] use, the patient reduces the risk for NM, CVA, HTN, cardiac dysrhythmias and sudden cardiac [...] Lupron along w/ additional oral chemotherapy from [facility] Oncology. Also receiving Boniva Aug, Other [...] reviewed and amended by provider signed below. [employer] Other 01-26-2023 History of Present illness Narrative* Marco A Esqueda MD - 08/11/2022 7:42 AM EST PATIENT NAME: Pablo Felix DATE: 08/11/2022 PRIMARY CARE PHYSICIAN: Dr. Jamar Fall OTHER PHYSICIANS: Dr. Anthony Scruggs, Dr. Khan, [facility] Cardiology Portions of this encounter note [...] mg 24 hr tablet Take by mouth. Gaagiltwkxvzr-Xdzgabws-Qvledd (MULTIVITAMIN 50 PLUS) tab Take 1 tablet [...] Radical retropubic prostatectomy and bilateral pelvic lymphadenectomy ([facility]) Poorly differentiated prostatic adenocarcinoma of left [...] 08/11/2022 PSA RADIOLOGY/OTHER STUDIES: 11/05/2021 CT chest/abdomen/pelvis ([facility]) Several sclerotic lesions consistent with metastatic disease. No evidence of visceral organ involvement or lymphadenopathy. 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 01/22/2018 Nuclear bone scan ([facility]) New focal increased activity left frontal bone, left T8 vertebral body. 01/22/2018 MRI pelvis ([facility]) 4.5 cm area of T2 signal in the prostate bed. 07/24/2014 CT [place]pelvis [place] Diffuse prostatic enlargement with indentation of the bladder base. Incidental 2.5 x 1 cm exophytic hypodense lesion adjacent to the pancreatic body. ASSESSMENT/PLAN: 1. Metastatic prostate cancer (HCC) - ICD9: 185, ICD10: C61 (primary diagnosis) The patient was diagnosed with early-stage high-grade prostate cancer in June 2014 (TRUS [id number]/02/2014). He underwent a radical prostatectomy on 11/05/2014. Pathology consistent with stage IIIC (pT2b, N0, M0), Telford 5+4 equal 9. Postop the patient's PSA [...] suppressed at <12. Bone scan obtained at [facility] 11/05/2021 revealed multiple bone metastases. 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 Stable on current medications. Continue per [...] CC: Dr. Anthony Scruggs documented in this encounterKindred Hospital [facility]ima01-05-2023 NotePROCEDURE: XR SHOULDER LT 2V or > [...] Electronically authenticated by: CYNTHIA TORRES Date: 2022-07-21 15:46[facility]01-05-2023 Evaluation note* Encounter Date Diagnosis Assessment Notes Treatment Notes Treatment Clinical Notes Jul, Cervical spondylosis with radiculopathy (ICD-10 - M47.22) ROM exercises, heat/ice and Tylenol 1000mg tid. Initiated Tramadol w/ caution, no driving, may cause sedation. Jul, Acute pain of left shoulder (ICD-10 - M25.512) ROM exercises, Tylenol and Tramadol as needed. Jul, Annual physical exam (ICD-10 - Z00.00) [employer] Other 10-28-2022 Hospital Discharge instructions Patient Education [...] who: Are older than age 65. Are -Norwegian. Are obese. Have a family history of [...] cells. Follow these instructions at home: Take qbuk-znk-jatfpxh and prescription medicines only as told by [...] 07/03/2006 Document Revised: 06/15/2018 Document Reviewed: 03/13/2017 [employer] Patient Education 2020 [employer] Follow Up Care 11/08/2021 14:14:20 With:KAEL JAMES, Anthony Lee, URL Address: [address] [place], [place] [id number]- When: Unknown [facility] 10-27-2022 Nurse Note* Sheela Toney - 05/12/2022 10:43 AM EDT AUA=2 documented in this encounterKindred Hospital [facility]ima10-27-2022 History of Present illness Narrative* G Franky Khan MD - 05/12/2022 10:41 AM EDT Radiation Oncology - Follow Up Note PATIENT NAME: Pablo Felix PATIENT DIAGNOSIS: Prostate adenocarcinoma, initial clinical stage II, initial PSA 1.07, biopsy Lucrecia score 9(4,5), s/p prostatectomy for 11/05/14 pathologic stage IIIC [id number], Telford 9 (5, 4) now with rising PSA [...] Each once daily. To test blood sugar Cbusjnzqzgema-Ajyqfmbk-Wzotnq (MULTIVITAMIN 50 PLUS) tab Take 1 tablet [...] s/p prostatectomy for 11/05/14 pathologic stage IIIC [id number], Telford 9 (5, 4) withrising PSA, subsequently status [...] Zach Khan MD cc: Jamar Fall MD ([facility]) Portions of the above note extracted and edited from previous visit as well as active information included in the EMR. documented in this encounterKindred Hospital [facility]ima10-17-2022 Miscellaneous Notes* Telephone Encounter - Sheela Toney - 05/02/2022 10:48 AM EDT Patient coming in on 05/12/22 for follow up with labs. Please add lab orders. Thanks, Sheela RUSTY Toney documented in this encounterKindred Hospital [facility]ima08-04-2022 History of Present illness Narrative* Marco A Esqueda MD - 02/17/2022 7:51 AM EDT PATIENT NAME: Pablo Felix DATE: 02/17/2022 PRIMARY CARE PHYSICIAN: Jamar Fall DO OTHER PHYSICIANS: Dr. Anthony Scruggs, Dr. Khan, [facility] Cardiology Portions of this encounter note [...] Each once daily. To test blood sugar Vsexfnamofegv-Eghutkyk-Sctmcu (MULTIVITAMIN 50 PLUS) tab Take 1 tablet [...] Radical retropubic prostatectomy and bilateral pelvic lymphadenectomy ([facility]) Poorly differentiated prostatic adenocarcinoma of left [...] PSA 0.14 RADIOLOGY/OTHER STUDIES: 11/05/2021 CT chest/abdomen/pelvis ([facility]) Several sclerotic lesions consistent with metastatic disease. No evidence of visceral organ involvement or lymphadenopathy. 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 01/22/2018 Nuclear bone scan ([facility]) New focal increased activity left frontal bone, left T8 vertebral body. 01/22/2018 MRI pelvis ([facility]) 4.5 cm area of T2 signal in the prostate bed. 07/24/2014 CT [place]pelvis [place] Diffuse prostatic enlargement with indentation of the bladder base. Incidental 2.5 x 1 cm exophytic hypodense lesion adjacent to the pancreatic body. ASSESSMENT/PLAN: 1. Metastatic prostate cancer (HCC) - ICD9: 185, ICD10: C61 (primary diagnosis) The patient was diagnosed with early-stage high-grade prostate cancer in June 2014 (TRUS [id number]/02/2014). He underwent a radical prostatectomy on 11/05/2014. [...] at <12. Staging scans were obtained at [facility] on 11/05/2021. Bone scan revealed multiple [...] 414.01, ICD10: I25.10 Status post CABG 08/17/2014 ([facility]). Stable on current medications. Continue per [...] CC: Dr. Anthony Scruggs documented in this encounterKindred Hospital [facility]ima05-23-2022 Miscellaneous Notes* Telephone Encounter - Clementine Aguilar [...] that he has the phone number to [facility]. No additional questionsnoted. Clementine Aguilar RN documented in this encounterKindred Hospital [facility]ima04-28-2022 History of Present illness Narrative* Marco A Esqueda MD - 11/11/2021 7:42 AM EDT PATIENT NAME: Pablo Felix DATE: 11/11/2021 PRIMARY CARE PHYSICIAN: Jamar Fall DO OTHER PHYSICIANS: Dr. Anthony Scruggs, Dr. Khan, [facility] Cardiology Portions of this encounter note have been copied from my note from 10/28/2021 and has been updated where appropriate, and reflect my current medical decision making from today. CC: This is a 76 year old male with recently diagnosed metastatic prostate cancer, seen for scheduled follow-up. INTERIM HISTORY: Since the patient's initial visit here he underwent staging scans at [facility] on 11/05/2021. Bone scan revealed multiple [...] Each once daily. To test blood sugar Hptibcmoocwop-Jeonkdxs-Syzuty (MULTIVITAMIN 50 PLUS) tab Take 1 tablet [...] Radical retropubic prostatectomy and bilateral pelvic lymphadenectomy ([facility]) Poorly differentiated prostatic adenocarcinoma of left [...] PSA 2.64 RADIOLOGY/OTHER STUDIES: 11/05/2021 CT chest/abdomen/pelvis ([facility]) Several sclerotic lesions consistent with metastatic disease. No evidence of visceral organ involvement or lymphadenopathy. 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 01/22/2018 Nuclear bone scan ([facility]) New focal increased activity left frontal bone, left T8 vertebral body. 01/22/2018 MRI pelvis ([facility]) 4.5 cm area of T2 signal in the prostate bed. 07/24/2014 CT [place]pelvis [place] Diffuse prostatic enlargement with indentation of the bladder base. Incidental 2.5 x 1 cm exophytic hypodense lesion adjacent to the pancreatic body. ASSESSMENT/PLAN: 1. Metastatic prostate cancer (HCC) - ICD9: 185, ICD10: C61 (primary diagnosis) The patient was diagnosed with early-stage high-grade prostate cancer in June 2014 (TRUS [id number]/02/2014). He underwent a radical prostatectomy on 11/05/2014. Pathology consistent with stage IIIC (pT2b, N0, M0), Telford 5+4 equal 9. Postop the patient's PSA [...] at <12. Staging scans were obtained at [facility] on 11/05/2021. Bone scan revealed multiple [...] 414.01, ICD10: I25.10 Status post CABG 08/17/2014 ([facility]). Stable on current medications. Continue per [...] CC: Dr. Anthony Scruggs documented in this encounterKindred Hospital [facility]ima04-27-2022 Miscellaneous Notes* Telephone Encounter - Clementine Aguilar RN - 11/10/2021 3:03 PM EDT Pt reports his Enzalutamide was delivered. Will start this evening. Clementine Aguilar RN documented in this encounterKindred Hospital [facility]ima04-26-2022 Miscellaneous Notes* Telephone Encounter - Clementine Aguilar RN - 11/09/2021 2:31 PM EDT Per pt, his Enzalutamide is scheduled to arrive tomorrow morning. Patient started/will start taking Enzalutamide on 11/10/21. Clementine Aguilar RN documented in this encounterKindred Hospital [facility]ima04-25-2022 Hospital Discharge instructions Patient Education 11/08/2021 14:10:09 [...] who: Are older than age 65. Are -Norwegian. Are obese. Have a family history of [...] cells. Follow these instructions at home: Take yjjl-hlb-bnyjiok and prescription medicines only as told by [...] 07/03/2006 Document Revised: 06/15/2018 Document Reviewed: 03/13/2017 [employer] Patient Education 2020 [employer] Follow Up Care 08/23/2021 13:26:07 With:KAEL JAMES, Anthony Lee, URL Address: [facility] [address] , [place] [phone] When:05/10/2022 [facility] 04-21-2022 Miscellaneous Notes* Telephone Encounter - Clementine Aguilar RN - 11/04/2021 2:53 PM EDT Pt would like to get the 4th Covid vaccine when it's due. Dr Esqueda notified and gives the ok to proceed when due. Pt notified and verbalizes understanding. Clementine Aguilar RN documented in this encounterKindred Hospital [facility]ima04-21-2022 History of Present illness Narrative* Clementine Aguilar [...] Information handout: Enzalutamide, Specialty Pharmacy Information : [facility] phone numbers: Yes [...] Aguilar RN * Aida Luo, [facility] - 11/04/2021 2:49 PM EDT Images from the original note were not included. [facility] Department of Pharmacy Oncology Pharmacy Medication Education [...] Each once daily. To test blood sugar Dfpwhopwdkkuz-Qtzhqqpg-Ueighq (MULTIVITAMIN 50 PLUS) tab Take 1 tablet [...] of chemotherapy NA - Followed up with [facility] for delivery of Free X[employer]iness [...] patient Rubin Luo RPh documented in this encounterKindred Hospital [facility]ima04-21-2022 Miscellaneous Notes* Telephone Encounter - Aida Luo [facility] - 11/04/2021 10:54 AM EDT Confirmed with [employer] approval date 11/01/21 and that the specialty pharmacy, [facility], will reach out to Mr Felix 3-5 business days from approval date. If he does not hear from them by 11/10/21 we should call [facility] @ option 2. I informed Mr Felix of this, he has an appt 11/12/21 and said if he has not heard from them by then he will get their phone number from us. Rubin Luo RP documented in this encounterKindred Hospital [facility]ima04-19-2022 Miscellaneous Notes* Telephone Encounter - Jennifer Garcia [...] him know to be expecting this call. [facility] will call patient to set up delivery for all fills. I do not see where he has had chemo education yet. Alba does he need to be set up with you? Thanks Rubin Luo RP * Telephone Encounter - Andreina Castillo RP - 11/01/2021 10:55 AM EDT Patient called today. We completed a conference call with [facility] - they were ableto obtain consent and [...] We will proceed free drug application through [employer]. Pharmacy to reach out to patient 10/29/2021 to notify. Brina Wang RPh * Telephone Encounter - Brina Wang RPh - 10/28/2021 3:08 PM EDT Ambulatory Pharmacy Prior Authorization Note Provider Intervention Required?: No- Pharmacy completed on your behalf. Drug: Xtandi Cover My Meds Carter: [id number] Determination: Approved Prior Authorization/Case #: [id number] Prior Authorization Expiration: 10/28/2022 Time to PA Submission in CMM: 15 min Time to PA Determination in CMM: Same day Additional Information: Co-Pay $3,111.12 For questions relating to this submission, please contact [facility] at [phone] documented in this encounter[facility] Miscellaneous Notes* Telephone Encounter - Zohra Avila PA-C - 11/02/2021 12:00 PM EDT CBC and CMP orders placed Zohra Avila PA-C * Telephone Encounter - Katie Rosen MA - 11/02/2021 11:57 AM EDT Patient has an appt on 11/11/21. Would you like labs, if so place orders. Katie Rosen MA documented in this encounterKind[facility]ima04-18-2022 Miscellaneous Notes* Telephone Encounter - Clementine Aguilar [...] assistance program. Thanks, BRM documented in this encounterKindred Hospital [facility]ima04-14-2022 Miscellaneous Notes* Telephone Encounter - Clementine Aguilar RN - 10/28/2021 1:12 PM EDT Voicemail message received from Sandra @ [facility]. Reports the pt's 1st dose of Lupron was given on 02/12/2018. Dr Esqueda notified. Clementine Aguilar RN * Telephone Encounter - Clementine Aguilar RN - 10/28/2021 12:[address] Esqueda requests that we contact Dr Scruggs' office for pt's Lupron start date. Call placed to [facility]. No answer. Message left requesting call back. Clementine Aguilar RN documented in this encounterKindred Hospital [facility]ima04-14-2022 Miscellaneous Notes* Telephone Encounter - Clementine Aguilar RN - 10/28/2021 1:12 PM EDT This encounter was opened in error. @[email or web address]@ documented in this encounterKindred Hospital [facility]ima04-11-2022 Miscellaneous Notes* Telephone Encounter - Christo Howard APRN.ALEXA - 10/25/2021 4:05 PM EDT Hold off for now. Christo Howadr APRN.ALEXA * Telephone Encounter - Katie Rosen MA - 10/25/2021 11:01 AM EDT If patient needs labs, please sign/place orders for 10/28/21. Thanks. Katie Rosen MA documented in this encounterKindred Hospital [facility]ima01-01-2015 Evaluation note* Diagnosis Onset Date Resolution Status ASHD (arteriosclerotic heart disease) acute Cervical spondylosis acute Essential hypertension acute Hypercholesterolemia acute Malignant neoplasm of prostate July 17, 2014 acute Nonrheumatic aortic valve stenosis acute GRADY (obstructive sleep apnea) acute Type 2 diabetes mellitus with hyperglycemia acute [facility] Work Phone: Evaluation + Plan note Future Appointments Appointment Date:05/13/2022 08:45:00 AM Scheduled Provider:Anthony SCRUGGS MD Location:[facility] Appointment Type:URO Office Visit Diagnostic Tests Pending * PSA Total 11/08/21 Future Scheduled Tests Laboratory* Basic Metabolic Panel 09/20/21 [facility] evaluation + Plan note Future Appointments Appointment Date:10/28/2022 08:00:00 AM Scheduled Provider:Anthony SCRUGGS MD Location:[facility] Appointment Type:URO Office Visit Diagnostic Tests Pending * PSA Total 09/14/22 Future Scheduled Tests Laboratory* Basic Metabolic Panel 09/20/21 [facility] evaluation + Plan note Future Appointments Appointment Date:10/20/2023 08:45:00 AM Scheduled Provider:Anthony SCRUGGS MD Location:[facility] Appointment Type:URO Office Visit Diagnostic Tests Pending * PSA Total 04/17/23 [facility] evaluation + Plan note Future Appointments Appointment Date:04/19/2024 08:00:00 AM Scheduled Provider:Anthony SCRUGGS MD Location:[facility] Appointment Type:URO Office Visit Diagnostic Tests Pending * PSA Total 02/15/24 [facility] evaluation + Plan note Future Appointments Appointment Date:10/07/2024 09:15:00 AM Scheduled Provider:Anthony SCRUGGS MD Location:[facility] Appointment Type:URO Office Visit Diagnostic Tests Pending * PSA Total 08/17/24 [facility] evaluation note* Diagnosis OPENED IN ERROR- Primary To allow closing an encounter opened in error (used in SmartSet) [facility] Malignant neoplasm of prostate [...] neoplasm of prostate [facility] Diagnosis Malignant neoplasm of prostate (HCC)- Primary Malignant neoplasm of prostate 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, unspecified vessel or lesion type Essential hypertension Unspecified essential hypertension Type 2 diabetes mellitus without complication, without long-term current use of insulin (HCC) documented in this encounter [facility] LimaEvaluation noteNo [employer] Other Evaluation note* Diagnosis Malignant neoplasm of prostate (HCC)- Primary Malignant neoplasm of prostate 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 pectoris, unspecified vessel or lesion type Essential hypertension Unspecified essential hypertension Type 2 diabetes mellitus without complication, without long-term current use of insulin (HCC) [facility] [place] [facility]* Diagnosis Malignant neoplasm of prostate (HCC)- Primary Malignant neoplasm of prostate [facility] [place] [facility]* Diagnosis Malignant neoplasm of prostate (HCC)- Primary Malignant neoplasm of prostate [facility] [place] [facility]* Diagnosis Malignant neoplasm of prostate (HCC)- Primary Malignant neoplasm of prostate 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 pectoris, unspecified vessel or lesion type Essential hypertension Unspecified essential hypertension Type 2 diabetes mellitus without complication, without long-term current use of insulin (HCC) documented [facility] [place] [facility]* Diagnosis Neoplasm of unspecified behavior of bone, soft tissue, and skin Actinic keratosis [facility] [place] [facility]* Diagnosis Malignant neoplasm of prostate (HCC)- Primary Malignant neoplasm of prostate documented in this encounter [facility] note* Diagnosis Malignant neoplasm of prostate (HCC)- Primary Malignant neoplasm of prostate Essential hypertension Unspecified essential hypertension 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 pectoris, unspecified vessel or lesion type Type 2 diabetes mellitus without complication, without long-term current use of insulin (HCC) Lesion of skin of right ear Abdominal discomfort Abdominal pain, unspecified site documented [facility] [place] [facility]* Diagnosis Onset Date Resolution Status Cervical spondylosis acute Mass of skin of left shoulder acute Primary osteoarthritis, right shoulder acute Shoulder pain, right acute Neck pain noneactive ASHD (arteriosclerotic heart disease) acute Essential hypertension acute Hypercholesterolemia acute Malignant neoplasm of prostate July 17, 2014 acute Nonrheumatic aortic valve stenosis acute GRADY (obstructive sleep apnea) acute Type 2 diabetes mellitus with hyperglycemia acute [facility] Work Phone: Evaluation note* Diagnosis Malignant neoplasm of prostate (HCC)- Primary Malignant neoplasm of prostate [facility] [place] [facility]* Diagnosis Malignant neoplasm of prostate (HCC)- Primary Malignant neoplasm of prostate [facility] [place] [facility]* Diagnosis Malignant neoplasm of prostate (HCC)- Primary Malignant neoplasm of prostate documented in this encounter [facility] note* Diagnosis Malignant neoplasm of prostate (HCC)- Primary Malignant neoplasm of prostate documented in this encounter [facility] general Narrative - Reported* Type Description [...] [place] 08/2015 Hospitalization History see surgical hx [employer] Other History general Narrative - Reported* Type [...] [place] 08/2015 Hospitalization History see surgical hx [employer] 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 Referring Provider First Name Jamar Referring Provider Last Name Juan David Referring Provider Specialty Internal Me dicine Referred Organization [facility] Referred Provider ChapopapoEmelina pineda Referred Address ,[place], [place],[address] Referred Provider Specialty Ear, Nose an d [...] or prosecute any alcohol or drug abuse patient.[facility] LimaIn the event this information is protected by the Federal Confidentiality of Alcohol and Drug Abuse Patient Records regulations: The Federal rules restrict any use of the information to criminally investigate or prosecute any alcohol or drug abuse patient.[facility] LimaIn the event this information is protected by the Federal Confidentiality of Alcohol and Drug Abuse Patient Records regulations: The Federal rules restrict any use of the information to criminally investigate or prosecute any alcohol or drug abuse patient.[facility] LimaIn the event this information is protected by the Federal Confidentiality of Alcohol and Drug Abuse Patient Records regulations: The Federal rules restrict any use of the information to criminally investigate or prosecute any alcohol or drug abuse patient.[facility] LimaIn the event this information is protected by the Federal Confidentiality of Alcohol and Drug Abuse Patient Records regulations: The Federal rules restrict any use of the information to criminally investigate or prosecute any alcohol or drug abuse patient.[facility] LimaIn the event this information is protected by the Federal Confidentiality of Alcohol and Drug Abuse Patient Records regulations: The Federal rules restrict any use of the information to criminally investigate or prosecute any alcohol or drug abuse patient.[facility] LimaIn the event this information is protected by the Federal Confidentiality of Alcohol and Drug Abuse Patient Records regulations: The Federal rules restrict any use of the information to criminally investigate or prosecute any alcohol or drug abuse patient.[facility] LimaIn the event this information is protected by the Federal Confidentiality of Alcohol and Drug Abuse Patient Records regulations: The Federal rules restrict any use of the information to criminally investigate or prosecute any alcohol or drug abuse patient.[facility] LimaIn the event this information is protected by the Federal Confidentiality of Alcohol and Drug Abuse Patient Records regulations: The Federal rules restrict any use of the information to criminally investigate or prosecute any alcohol or drug abuse patient.[facility] LimaIn the event this information is protected by the Federal Confidentiality of Alcohol and Drug Abuse Patient Records regulations: The Federal rules restrict any use of the information to criminally investigate or prosecute any alcohol or drug abuse patient.[facility] LimaIn the event this information is protected by the Federal Confidentiality of Alcohol and Drug Abuse Patient Records regulations: The Federal rules restrict any use of the information to criminally investigate or prosecute any alcohol or drug abuse patient.[facility] LimaIn the event this information is protected by the Federal Confidentiality of Alcohol and Drug Abuse Patient Records regulations: The Federal rules restrict any use of the information to criminally investigate or prosecute any alcohol or drug abuse patient.[facility] LimaIn the event this information is protected by the Federal Confidentiality of Alcohol and Drug Abuse Patient Records regulations: The Federal rules restrict any use of the information to criminally investigate or prosecute any alcohol or drug abuse patient.[facility] LimaIn the event this information is protected by the Federal Confidentiality of Alcohol and Drug Abuse Patient Records regulations: The Federal rules restrict any use of the information to criminally investigate or prosecute any alcohol or drug abuse patient.[facility] LimaIn the event this information is protected by the Federal Confidentiality of Alcohol and Drug Abuse Patient Records regulations: The Federal rules restrict any use of the information to criminally investigate or prosecute any alcohol or drug abuse patient.[facility] LimaIn the event this information is protected by the Federal Confidentiality of Alcohol and Drug Abuse Patient Records regulations: The Federal rules restrict any use of the information to criminally investigate or prosecute any alcohol or drug abuse patient.[facility] LimaIn the event this information is protected by the Federal Confidentiality of Alcohol and Drug Abuse Patient Records regulations: The Federal rules restrict any use of the information to criminally investigate or prosecute any alcohol or drug abuse patient.[facility] LimaIn the event this information is protected by the Federal Confidentiality of Alcohol and Drug Abuse Patient Records regulations: The Federal rules restrict any use of the information to criminally investigate or prosecute any alcohol or drug abuse patient.[facility] LimaIn the event this information is protected by the Federal Confidentiality of Alcohol and Drug Abuse Patient Records regulations: The Federal rules restrict any use of the information to criminally investigate or prosecute any alcohol or drug abuse patient.[facility] LimaIn the event this information is protected by the Federal Confidentiality of Alcohol and Drug Abuse Patient Records regulations: The Federal rules restrict any use of the information to criminally investigate or prosecute any alcohol or drug abuse patient.[facility] LimaIn the event this information is protected by the Federal Confidentiality of Alcohol and Drug Abuse Patient Records regulations: The Federal rules restrict any use of the information to criminally investigate or prosecute any alcohol or drug abuse patient.[facility] LimaIn the event this information is protected by the Federal Confidentiality of Alcohol and Drug Abuse Patient Records regulations: The Federal rules restrict any use of the information to criminally investigate or prosecute any alcohol or drug abuse patient.[facility] LimaIn the event this information is protected by the Federal Confidentiality of Alcohol and Drug Abuse Patient Records regulations: The Federal rules restrict any use of the information to criminally investigate or prosecute any alcohol or drug abuse patient.[facility] LimaIn the event this information is protected by the Federal Confidentiality of Alcohol and Drug Abuse Patient Records regulations: The Federal rules restrict any use of the information to criminally investigate or prosecute any alcohol or drug abuse patient.[facility] LimaIn the event this information is protected by the Federal Confidentiality of Alcohol and Drug Abuse Patient Records regulations: The Federal rules restrict any use of the information to criminally investigate or prosecute any alcohol or drug abuse patient.[facility] LimaIn the event this information is protected by the Federal Confidentiality of Alcohol and Drug Abuse Patient Records regulations: The Federal rules restrict any use of the information to criminally investigate or prosecute any alcohol or drug abuse patient.[facility] LimaIn the event this information is protected by the Federal Confidentiality of Alcohol and Drug Abuse Patient Records regulations: The Federal rules restrict any use of the information to criminally investigate or prosecute any alcohol or drug abuse patient.[facility] LimaIn the event this information is protected by the Federal Confidentiality of Alcohol and Drug Abuse Patient Records regulations: The Federal rules restrict any use of the information to criminally investigate or prosecute any alcohol or drug abuse patient.[facility] LimaIn the event this information is protected by the Federal Confidentiality of Alcohol and Drug Abuse Patient Records regulations: The Federal rules restrict any use of the information to criminally investigate or prosecute any alcohol or drug abuse patient.[facility] LimaIn the event this information is protected by the Federal Confidentiality of Alcohol and Drug Abuse Patient Records regulations: The Federal rules restrict any use of the information to criminally investigate or prosecute any alcohol or drug abuse patient.[facility] LimaIn the event this information is protected by the Federal Confidentiality of Alcohol and Drug Abuse Patient Records regulations: The Federal rules restrict any use of the information to criminally investigate or prosecute any alcohol or drug abuse patient.[facility] LimaIn the event this information is protected by [...] or prosecute any alcohol or drug abuse patient.[facility] LimaIn the event this information is protected by the Federal Confidentiality of Alcohol and Drug Abuse Patient Records regulations: The Federal rules restrict any use of the information to criminally investigate or prosecute any alcohol or drug abuse patient.[facility] LimaIn the event this information is protected by the Federal Confidentiality of Alcohol and Drug Abuse Patient Records regulations: The Federal rules restrict any use of the information to criminally investigate or prosecute any alcohol or drug abuse patient.[facility] LimaIn the event this information is protected by the Federal Confidentiality of Alcohol and Drug Abuse Patient Records regulations: The Federal rules restrict any use of the information to criminally investigate or prosecute any alcohol or drug abuse patient.[facility] Care Teams (unrecognized sec tion and content) Site Physician Relationship Specialty Start Date End Date Jamar Fall Jessica, DO PCP - General Internal Medicine 08/04/14 Site Physician Relationship Specialty Start Date End Date Jamar Fall, DO PCP - General Internal Medicine 08/04/14 Site Physician Relationship Specialty Start Date End Date Juan David Jamar Jessica, DO PCP - General Internal Medicine 08/04/14 Site Physician Relationship Specialty Start Date End Date Jamar Fall, DO PCP - General Internal Medicine 08/04/14 Marco A Esqueda MD [address] [place] [address] Physician Hematology/Oncology 11/02/21 Christo Howard, STAMPING MACHINE OPERATOR.DIRECTOR OF MARKETING [address] [place] [address] Nurse Practitioner Hematology/Oncology 11/02/21 Clementine Aguilar, ANITHA [address] [place] [address] Specialty Parking Patroller Hematology/Oncology 11/02/21 Site Physician Relationship Specialty Start Date End Date Jamar Fall, DO PCP - General Internal Medicine 08/04/14 Marco A Esqueda MD [address] [place] [address] Physician Hematology/Oncology 11/02/21 Christo Howard, STAMPING MACHINE OPERATOR.DIRECTOR OF MARKETING [address] [place] [address] Nurse Practitioner Hematology/Oncology 11/02/21 Clementine Aguilar, RN [address] [place] [address] Specialty Parking Patroller Hematology/Oncology 11/02/21 Site Physician Relationship Specialty Start Date End Date Jamar Fall, DO PCP - General Internal Medicine 08/04/14 Marco A Esqueda MD [address] [place] [address] Physician Hematology/Oncology 11/02/21 Christo Howard, STAMPING MACHINE OPERATOR.DIRECTOR OF MARKETING [address] [place] [address] Nurse Practitioner Hematology/Oncology 11/02/21 Clementine Aguilar, ANITHA [address] [place] [address] Specialty Parking Patroller Hematology/Oncology 11/02/21 Site Physician Relationship Specialty Start Date End Date Jamar Fall, DO PCP - General Internal Medicine 08/04/14 Marco A Esqueda MD [address] [place] [address] Physician Hematology/Oncology 11/02/21 Christo Howard, STAMPING MACHINE OPERATOR.DIRECTOR OF MARKETING [address] [place] [address] Nurse Practitioner Hematology/Oncology 11/02/21 Clementine Aguilar, RN [address] [place] [address] Specialty Parking Patroller Hematology/Oncology 11/02/21 Site Physician Relationship Specialty Start Date End Date Jamar Fall, DO PCP - General Internal Medicine 08/04/14 Marco A Esqueda MD [address] [place] [address] Physician Hematology/Oncology 11/02/21 Christo Howard, STAMPING MACHINE OPERATOR.DIRECTOR OF MARKETING [address] [place] [address] Nurse Practitioner Hematology/Oncology 11/02/21 Clementine Aguilar, ANITHA [address] [place] [address] Specialty Parking Patroller Hematology/Oncology 11/02/21 Site Physician Relationship Specialty Start Date End Date Jamar Fall, DO PCP - General Internal Medicine 08/04/14 Marco A Esqueda MD [address] [place] [address] Physician Hematology/Oncology 11/02/21 Christo Howard, STAMPING MACHINE OPERATOR.DIRECTOR OF MARKETING [address] [place] [address] Nurse Practitioner Hematology/Oncology 11/02/21 Clementine Aguilar, ANITHA [address] [place] [address] Specialty Parking Patroller Hematology/Oncology 11/02/21 Site Physician Relationship Specialty Start Date End Date Jamar Fall, DO PCP - General Internal Medicine 08/04/14 Marco A Esqueda MD [address] [place] [address] Physician Hematology/Oncology 11/02/21 Christo Howard, STAMPING MACHINE OPERATOR.DIRECTOR OF MARKETING [address] [place] [address] Nurse Practitioner Hematology/Oncology 11/02/21 Clementine Aguilar, RN [address] [place] [address] Specialty Parking Patroller Hematology/Oncology 11/02/21 Site Physician Relationship Specialty Start Date End Date Jamar Fall, DO PCP - General Internal Medicine 08/04/14 Marco A Esqueda MD [address] [place] [address] Physician Hematology/Oncology 11/02/21 Christo Howard, STAMPING MACHINE OPERATOR.DIRECTOR OF MARKETING [address] [place] [address] Nurse Practitioner Hematology/Oncology 11/02/21 Clementine Aguilar, ANITHA [address] [place] [address] Specialty Parking Patroller Hematology/Oncology 11/02/21 Site Physician Relationship Specialty Start Date End Date Jamar Fall, DO PCP - General Internal Medicine 08/04/14 Marco A Esqueda MD [address] [place] [address] Physician Hematology/Oncology 11/02/21 Christo Howard, STAMPING MACHINE OPERATOR.DIRECTOR OF MARKETING [address] [place] [address] Nurse Practitioner Hematology/Oncology 11/02/21 Clementine Aguilar, ANITHA [address] [place] [address] Specialty Parking Patroller Hematology/Oncology 11/02/21 Site Physician Relationship Specialty Start Date End Date Jamar Fall, DO PCP - General Internal Medicine 08/04/14 Marco A Esqueda MD [address] [place], [place] [id number] Physician Hematology/Oncology 11/02/21 Christo Howard, STAMPING MACHINE OPERATOR.[facility] [address] [place] [address] Nurse Practitioner Hematology/Oncology 11/02/21 Clementine Aguilar, ANITHA [address] [place] [address] Specialty Parking Patroller Hematology/Oncology 11/02/21 Site Physician Relationship Specialty Start Date End Date Jamar Fall, DO PCP - General Internal Medicine 08/04/14 Marco A Esqueda MD [address] [place] [address] Physician Hematology/Oncology 11/02/21 Christo Howard, STAMPING MACHINE OPERATOR.[facility] [address] [place] [address] Nurse Practitioner Hematology/Oncology 11/02/21 Clementine Aguilar, ANITHA [address] [place] [address] Specialty Parking Patroller Hematology/Oncology 11/02/21 Site Physician Relationship Specialty Start Date End Date Jamar Fall, DO PCP - General Internal Medicine 08/04/14 Marco A Esqueda MD [address] [place] [address] Physician Hematology/Oncology 11/02/21 Christo Howard, STAMPING MACHINE OPERATOR.[facility] [address] [place] [address] Nurse Practitioner Hematology/Oncology 11/02/21 Clementine Aguilar, ANITHA [address] [place] [address] Specialty Parking Patroller Hematology/Oncology 11/02/21 Site Physician Relationship Specialty Start Date End Date Jamar Fall DO PCP - General Internal Medicine 08/04/14 Marco A Esqueda MD [address] [place] [address] Physician Hematology/Oncology 11/02/21 Christo Howard, STAMPING MACHINE OPERATOR.DIRECTOR OF MARKETING [address] [place] [address] Nurse Practitioner Hematology/Oncology 11/02/21 Clementine Aguilar, RN [address] [place] [address] Specialty Parking Patroller Hematology/Oncology 11/02/21 Site Physician Relationship Specialty Start Date End Date Jamar Fall DO PCP - General Internal Medicine 08/04/14 Marco A Esqueda MD [address] [place] [address] [address] [place], [place] [id number] Physician Hematology/Oncology 11/02/21 Christo Howard, STAMPING MACHINE OPERATOR.[employer] [address] [place] [address] [place] [address] Nurse Practitioner Hematology/Oncology 11/02/21 Clementine Aguilar, ANITHA [address] [place] [address] Specialty Parking Patroller Hematology/Oncology 11/02/21 Site Physician Relationship Specialty Start Date End Date Jamar Fall DO PCP - General Internal Medicine 08/04/14 Marco A Esqueda MD [address] [facility] [place] [address] Physician Hematology/Oncology 11/02/21 Christo Howard, STAMPING MACHINE OPERATOR.DIRECTOR OF MARKETING [address] [place] [address] Nurse Practitioner Hematology/Oncology 11/02/21 Clementine Aguilar, ANITHA [address] [facility] [place] [address] Specialty Parking Patroller Hematology/Oncology 11/02/21 Site Physician Relationship Specialty Start Date End Date Jamar Fall DO PCP - General Internal Medicine 08/04/14 Marco A Esqueda MD [address] [place] [address] Physician Hematology/Oncology 11/02/21 Christo Howard, STAMPING MACHINE OPERATOR.DIRECTOR OF MARKETING [address] [place] [address] Nurse Practitioner Hematology/Oncology 11/02/21 Clementine Aguilar, ANITHA [address] [place] [address] Specialty Parking Patroller Hematology/Oncology 11/02/21 Site Physician Relationship Specialty Start Date End Date Jamar Fall DO PCP - General Internal Medicine 08/04/14 Marco A Esqueda MD [address] [place] [address] Physician Hematology/Oncology 11/02/21 Christo Howard, STAMPING MACHINE OPERATOR.DIRECTOR OF MARKETING [address] [place] [address] [place] [address] Nurse Practitioner Hematology/Oncology 11/02/21 Clementine Aguilar, RN [address] [place] [address] [place] [address] Specialty Parking Patroller Hematology/Oncology 11/02/21 Site Physician Relationship Specialty Start Date End Date Jamar Fall MD [address] [place] [id number] PCP - General Internal Medicine 05/31/23 Site Physician Relationship Specialty Start Date End Date Jamar Fall MD [address] [place] [address] PCP - General Internal Medicine 05/31/23 Site Physician Relationship Specialty Start Date End Date Jamar Fall DO PCP - General Internal Medicine 08/04/14 Marco A Esqueda MD [address] [place] [address] [place] [address] Physician Hematology/Oncology 11/02/21 Christo Howard APRN.DIRECTOR OF MARKETING [address] [place] [address] [place] [address] Nurse Practitioner Hematology/Oncology 11/02/21 Clementine Aguilar, ANITHA [address] [place] [address] [place] [address] Specialty Parking Patroller Hematology/Oncology 11/02/21 Site Physician Relationship Specialty Start Date End Date Jamar Fall DO PCP - General Internal Medicine 08/04/14 Marco A Esqueda MD [address] [place] [address] Physician Hematology/Oncology 11/02/21 Christo Howard, STAMPING MACHINE OPERATOR.DIRECTOR OF MARKETING [address] [place] [address] Nurse Practitioner Hematology/Oncology 11/02/21 Clementine Aguilar, ANITHA [address] [place] [address] Specialty Parking Patroller Hematology/Oncology 11/02/21 Team Status: Active Member Role [...] November 23, 2023 End: November 23, 2023 Site Physician Relationship Specialty Start Date End Date Jamar Fall DO PCP - General Internal Medicine 08/04/14 Marco A Esqueda MD [address] [place] [address] Physician Hematology/Oncology 11/02/21 Christo Howard, STAMPING MACHINE OPERATOR.DIRECTOR OF MARKETING [address] [place] [address] Nurse Practitioner Hematology/Oncology 11/02/21 Clementine Aguilar, ANITHA [address] [place] [address] Specialty Parking Patroller Hematology/Oncology 11/02/21 Site Physician Relationship Specialty Start Date End Date Jamar Fall DO PCP - General Internal Medicine 08/04/14 Marco A Esqueda MD [address] [facility] [address] Physician Hematology/Oncology 11/02/21 Christo Howard, STAMPING MACHINE OPERATOR.DIRECTOR OF MARKETING [address] [facility] [address] Nurse Practitioner Hematology/Oncology 11/02/21 Clementine Aguilar, ANITHA [address] [place] [address] Specialty Parking Patroller Hematology/Oncology 11/02/21 Team Status: Active Member Role Status Dates Jamar Fall DO Primary Care Provider Active Start: January 25, 2024 SAMAN Collins Attending Provider Active Start: January 25, 2024 Team Status: Inactive Member Role Status Dates Jamar Fall DO Primary Care Provide r, Attending Provider Active Start: March 26, 2024 End: March 26, 2024 Site Physician Relationship Specialty Start Date End Date Jamar Fall DO PCP - General Internal Medicine 08/04/14 Marco A Esqueda MD [address] [place] [address] Physician Hematology/Oncology 11/02/21 Christo Howard, STAMPING MACHINE OPERATOR.DIRECTOR OF MARKETING [address] [place] [address] Nurse Practitioner Hematology/Oncology 11/02/21 Clementine Aguilar, ANITHA [address] [place] [address] Specialty Parking Patroller Hematology/Oncology 11/02/21 Site Physician Relationship Specialty Start Date End Date Jamar Fall DO PCP - General Internal Medicine 08/04/14 Marco A Esqueda MD [address] [place] [address] Physician Hematology/Oncology 11/02/21 Christo Howard, STAMPING MACHINE OPERATOR.DIRECTOR OF MARKETING [address] [place] [address] Nurse Practitioner Hematology/Oncology 11/02/21 Clementine Aguilar RN [address] [place] [address] Specialty Parking Patroller Hematology/Oncology 11/02/21 Site Physician Relationship Specialty Start Date End Date Jamar Fall DO PCP - General Internal Medicine 08/04/14 Marco A Esqueda MD [address] [place] [address] Physician Hematology/Oncology 11/02/21 Christo Howard, STAMPING MACHINE OPERATOR.DIRECTOR OF MARKETING [address] [place] [address] Nurse Practitioner Hematology/Oncology 11/02/21 Clementine Aguilar, ANITHA [address] [place] [address] Specialty Parking Patroller Hematology/Oncology 11/02/21 Reason for Visit (unrecogniz ed [...] up Specialty Diagnoses / Procedures [facility] Referred To Contact Diagnoses Malignant neoplasm of prostate (HCC) Procedures DENOSUMAB INJECTION Marco A Esqueda MD [address] [place] [address] [facility] [address] [place] [address] Referral ID Status Reason Start Date Expiration Date V isits Requested Visits Authorized [id number] Authorized 11/11/2021 07/16/2022 99 99 Reason Comments Care Coordination Refill Question Reason Comments Prostate Cancer 1 month follow up Reason Comments Prostate Cancer Follow up Reason Comments Prostate Cancer 3 month follow up Reason Comments Prostate Cancer Reason Comments Prostate Cancer Follow up Reason Comments Suspicious Skin Lesion Specialty Diagnoses / Procedures [facility] Referred To Contact Dermatology Diagnoses lesion of skin of R ear Marco A Esqueda MD [address] [place] [address] [place] [address] Lety Holguin MD [address] [place] [address] Referral ID Status Reason Start Date Expiration Date Visits Re quested Visits Authorized [id number] Closed 08/04/2023 01/31/2024 1 1 Reason Comments [...] DATE CREATED AUTHOR AUTHOR'S ORGANIZ ATION 03/02/2024 [facility] EPIC DATE CREATED AUTHOR AUTHOR'S ORGANIZ ATION 04/02/2024 [facility] DATE CREATED AUTHOR AUTHOR'S ORGANIZ ATION 04/21/2024 [facility] DATE CREATED AUTHOR AUTHOR'S ORGANIZ ATION 05/10/2024 [facility] Inactive Administered Medications - up [...] BE BASED ON THE PRIMARY CLINICAL RECORDS. [employer] provides no warranty or guarantee of the accuracy or completeness of information in this document.
--- NOTE | 2024-06-12 08:19 | P.CN_ITS ---
Consult Note: HPI Data of Consult Patient: known to practice within the last 3 years Requesting Physician: Cheryl Cox NP Primary Care Provider: Non-Staff Physician, MD Consult Narrative Reason for consult: chronic neck pain Narrative: Rajesh Felix a pleasant 78 year old male presents for evaluation and management of chronic left sided neck pain. Patient has historically benefitted from injection therapy in neck and low back, unsure of type, greater than 10 years ago. Patient reporting pain 2/10 tightness in left neck increasing to 3/10 with twisting, upon waking up. Pain decreased with ice. PT completed with mild benefit. Has failed tylenol, voltaren, and salon pas. Previous C7-T1 MARNIE providing 50% improvement ongoing in radicular symptoms. Recent left C4/5 C5/6 MBB #1 25% improvement that day, greater than 50% improvement ongoing per pt. cc:: CC: Cheryl Cox NP Review of Systems ROS Status of ROS 10 or more systems reviewed and unremark able except as noted in history and below Musculoskeletal Reports: neck pain PFSH PFSH Medical History Anemia ?D64.9 - Anemia, unspecified (ICD-10) History of blood transfusion ?Z92.89 - Personal history of other medical treatment (ICD-10) Sleep apnea ?G47.30 - Sleep apnea, unspecified (ICD-10) COVID-19 ?U07.1 - COVID-19 (ICD-10) Prostate cancer ?C61 - Malignant neoplasm of prostate (ICD-10) Coronary artery disease ?I25.10 - Atherosclerotic heart disease of [place] coronary artery without angina pectoris (ICD-10) Diabetes ?E11.9 - Type 2 diabetes mellitus without complications (ICD-10) Arthritis ?M19.90 - Unspecified osteoarthritis, unspecified site (ICD-10) Neck pain ?M54.2 - Cervicalgia (ICD-10) Surgical History 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 - Presence of aortocoronary bypass graft (ICD-10) History of appendectomy ?Z90.49 - Acquired absence of other specified parts of digestive tract (ICD- 10) S/P prostatectomy ?Z90.79 - Acquired absence of other genital organ(s) (ICD-10) History of colonoscopy ?Z98.890 - Other specified postprocedural states (ICD-10) S/P epidural steroid injection ?Z92.241 - Personal history of systemic steroid therapy (ICD-10) Family History Other Cancer Family history of myocardial infarction Social History Within the past year, how often did you have a drink containing alcohol: 4 or more times a week Within the past year, how many standard drinks containing alcohol did you have on a typical day: 1 or 2 Total score: 0 Score interpretation: A score less than 4 is consistent with normal alcohol consumption. Smoking status: Never smoker Non-prescribed substance use: denies use Previous occupational history: [employer] Highest level of school completed/degree received: Associate degree: occupational, technical, vocational program Meds Home Medications and Allergies Home Medications ?Medication ?Instructions ?Recorded ?Confirmed ?Type CALCIUM & D3 .QD 12/13/23 History aspirin 81 mg capsule 81 mg PO DAILY 12/13/23 06/04/24 History atorvastatin 40 mg tablet 40 mg PO DAILY 12/13/23 06/04/24 History enzalutamide 80 mg tablet (Xtandi) 80 mg PO DAILY 12/13/23 06/04/24 History glimepiride 1 mg tablet 0.5 mg PO DAILY 12/13/23 06/04/24 History metformin 500 mg tablet 1,000 mg PO BID 12/13/23 06/04/24 History metoprolol succinate 25 mg 25 mg PO Q12H 12/13/23 06/04/24 History tablet,extended release 24 hr multivitamin with iron (Daily 1 tab PO DAILY 12/13/23 06/04/24 History Vites/Iron tablet) lisinopril 20 1 tab PO QPM 04/01/24 06/04/24 History mg-hydrochlorothiazide 12.5 mg tablet hydrocodone 5 mg-acetaminophen 325 1 tab PO Q6H PRN pain #8 tabs 04/08/24 06/04/24 Rx mg tablet Allergies Allergy/AdvReac Type Severity Reaction Status Date / Time Penicillins Allergy Mild Rash Verified 06/04/24 09:13 Exam Constitutional Documenting provider has reviewed patient's vital signs: yes Common normals: no apparent distress, oriented x3, healthy appearing, alert and well nourished General appearance: cooperative HENMT Common normals: normocephalic, hearing grossly normal bilaterally and moist oral mucous membranes Head and scalp: normocephalic Eye Common normals: PERRL Pupil: PERRL Neck & C-Spine Common normals: full ROM General: normal visual inspection Cervical spine: cervical ROM normal, pain with cervical ROM and paracervical muscle tenderness Other: pain over left C3-6 facets, positive facet loading negative sprulings sensation intact BUE strength 5/5 in BUE Chest Common normals: inspection of chest normal Respiratory Common normals: normal respiratory effort, no retractions and no use of accessory muscles Neuro Common normals: oriented x3, CN's II-XII intact bilaterally, moves all extremities, no focal motor deficits, no sensory deficits noted and deep tendon reflexes 2+ bilaterally Sensorium/orientation: alert Motor exam: strength 5/5 throughout and no movement abnormalities noted Psych Common normals: mental status grossly normal, thought process normal, cooperative, affect normal, speech normal and activity/motor behavior normal Speech: normal speech Thought process: normal thought process Results Additional Findings Additional findings: If on a controlled substance or opioids, I have checked an [place] report on this patient and there are no aberrancies noted in the prescribing history.??If on a controlled substance or opioid a drug screen was completed and reviewed within the last year, and if there has not been a drug screen completed we ordered one today to monitor higher risk, state monitored pain medication use. As part of providing excellent, safe, comprehensive care, the following was completed at our patient's visit: 1. A medication reconciliation and review to ensure accurate knowledge of current/active medications, including asking our patients to inform us about any [id number] medications or herbal remedies/nutritional supplements/alternative remedies. 2. A review to specifically ensure our patients have had annual screening for screening for depression, screening for tobacco use, and screening for unhealthy alcohol use. For concerning screenings had a discussion with the patient, provided patient education, and recommended follow-up with primary care provider when appropriate. If patient noted with a risk of falling, they received education on strength, gait, and balance training to prevent future risk of falling. Assessment and Plan Assessment and Plan (1) Cervical spondylosis: Assessment and Plan: The patient has had over 3 months of moderate to severe left sided neck pain with functional impairment and inadequate response to conservative care including NSAIDS (unless there are contraindication such as concurrent blood thinners), multiple oral or topical pain medications, and home exercise program/physical therapy.? Patient has completed >6 weeks of guided home exercise program and/or formal physical therapy program without relief of their symptoms.? I have reviewed the imaging of the cervical spine and no red flags were identified.? The imaging reveals radiographic findings consistent with cervical spondylosis We discussed the risks and benefits of the procedure with the patient, and we are NOT planning on using sedation as outlined in the guidelines from Medicare unless there is a documented reason that sedation would be strongly recommended.?? ?The procedure will be completed with fluoroscopic guidance.? (2) Cervical radiculopathy: (3) Myofascial pain: Plan continue current medications continue HEP as tolerated f/u PRN
== END 2024-06-12 07:53 | disposition home or self-care (01) ==
LOC: PM 07:52
PROVIDERS: Visit Provider Nurse Practitioner
DX: M47.812 Spondylosis without myelopathy or radiculopathy, cervical region (principal); M54.12 Radiculopathy, cervical region; M79.18 Myalgia, other site
CPT/HCPCS: G0463

== ENCOUNTER 2024-08-06 09:23 | Outpatient (OUT) | payer MEDICARE, OTHER, SELFPAY ==
--- NOTE | 2024-08-06 | CONS_ITS ---
CONSULTATION DATE: 08/06/2024 TO: Dr. Jones HISTORY: Patient returns today complaining of progressive pain in his neck and left upper extremity, left shoulder area. It is rated between 3-7/10 pain. Described as a deep, pressure type of pain, increased with activities such as prolonged sitting, performing lifting and pushing/pulling maneuvers. Denies any change in bowel and bladder habits. Reports progressive weakness in his left upper extremity. CURRENT MEDICATION: Includes Voltaren gel. He is unable to tolerate p.o. nonsteroidal agents well with GI distress. His DON on today?s visit was 58%. EXAM: Notable for patient having hypoesthesia along the C7 dermatome, 3/5 strength of the left triceps. No appreciable Spurling?s sign or signs consistent with myelopathy. He had depressed left triceps reflex. He also had significant pain with cervical facet loading maneuvers on the left side at approximately C2-3 and C3-4, with associated myofascial spasm of the cervical paravertebral muscles, as well as spasm of the trapezius. IMPRESSION: Our impression is patient with chronic pain secondary to known cervical spinal stenosis with left C7 radiculopathy on today?s visit and cervical spondylosis on the left side at possibly C2-C3, as well as myalgias myofascial spasm. RECOMMENDATIONS: I have recommended he undergo cervical spine films, placed a skin marker over the most painful area, and to proceed with a C7-T1 cervical epidural steroid injection under fluoroscopic guidance for his radiculopathy. Gone over the details of the procedure with the patient. All his questions were answered. He agrees to proceed with the outlined plan. Again, the epidural injection will be performed under fluoroscopic guidance. As part of providing excellent, safe, comprehensive care, the following was completed at our patient's visit: 1. A medication reconciliation and review to ensure accurate knowledge of current/active medications, including asking our patients to inform us about any [id number] medications or herbal remedies/nutritional supplements/alternative remedies. 2. A review to specifically ensure our patients have had annual screening for: elevated body mass index (BMI, see intake chart for exact total), tobacco use, screening for depression, and screening for unhealthy alcohol use. When screening is concerning, patients are provided with education and the specific recommendation to discuss the concerning health issue and treatment options with their primary care provider. SALOMÓN
--- OUTSIDE RECORDS SUMMARY | 2024-08-06 09:38 | XMS_ITS | CCD ---
Author Organization [facility] Care Team Providers Care Shift Supervisor Name Role Phone Jamar Fall DO Primary Care Provider Dheeraj JAMES, Marco A R Unavailable [phone] [facility] [employer] RESEARCH ANALYST.ALEXA, Christo Unavailable [phone] Lauren RN, Clementine Unavailable [phone] JAMAR FALL Primary Care Physician Jamar Fall DO Primary Care Provider Marco A Esqueda MD R Unavailable [phone] [facility] [employer] RESEARCH ANALYST.ALEXA, Christo Unavailable Lauren WELSH, Clementine Unavailable Jamar Fall DO Primary Care Provider Dheeraj JAMES, Marco A R Unavailable [facility] [employer] RESEARCH ANALYST.GENERAL ROAD FOREMAN, Christo Unavailable [phone] Lauren RN, Clementine Unavailable Jamar Fall Unavailable JUAN DAVID, DR ALCARAZ Admitting Unavailable JUAN DAVID, DR ALCARAZ Attending Unavailable JUAN DAVID, DR ALCARAZ Primary Care Unavailable JUAN DAVID, DR ALCARAZ Consulting Unavailable Cynthia Torres Consulting Unavailable SCRUGGS ., DR CRUZ Admitting Unavailable SCRUGGS ., DR CRUZ Attending Unavailable JUAN DAVID, DR ALCARAZ Primary Care Unavailable SCRUGGS ., DR CRUZ Consulting Unavailable DHEERAJ, DR [...] ble REQUEST, NONE LISTED Attending Unavaila ble JUAN DAVID, DR ALCARAZ Primary Care Unavailable REQUEST, NONE LISTED Consulting Unavaila ble Lauren WELSH, Clementine Unavailable Jamar Fall MD Primary Care Provider Juan David SEGUNDO, Jamar Lopez Primary Care Provider LONG BOO Attending Unavailable MARCO A ESQUEDA Referring Unavailable TIMMIEricka, EMELINA Craig Attending Unavailable JUAN DAVID, JAMAR E Referring Unavailable PABLO CHRISTINA Attending Unavailable TOM, LONG Galo Attending Unavailable SALVADOR, ALEXIA Attending Unavailable ELTARODNEY, BRIDGER Attending Unavailable LORA ENGLISH Attending Unavailable Anthony SCRUGGS Attending Unavailable KAEL, Anthony Lee Attending Unavailable SCRUGGS, Anthony Lee Attending Unavailable MARCO A ESQUEDA R Referring Unavailable BALL, JAMAR E Primary Care Unavailable LYNNE ALARCON Attending Unavailable MARCO A ESQUEDA R Referring Unavailable BALL, JAMAR E Primary Care Unavailable JUAN DAVID, JAMAR E Primary Care Unavailable JUAN DAVID, JAMAR E Primary Care Unavailable MARCO A ESQUEDA R Referring Unavailable BALL, JAMAR E Primary Care Unavailable CHRISTO HOWARD Attending Unavailable DHEERAJ, MARCO A R Referring Unavailable BALL, JAMAR E Primary Care Unavailable JUAN DAVID, JAMAR E Primary Care Unavailable JUAN DAVID, JAMAR E Primary Care Unavailable MARCO A ESQUEDA R Referring Unavailable BALL, JAMAR E Primary Care Unavailable MARCO A ESQUEDA Attending Unavailable DHEERAJ, MARCO A R Referring Unavailable BALL, JAMAR E Primary Care Unavailable Allergies Allergy Classification Reported Allergen(s) Allergy Type Date of Onset Reaction(s) Facility (18 sources) Penicillins; Translations: [PENICILLINS] Drug Allergy 1 Unknown [facility] (20 sources) Penicillin G; Translations: [penicillin G benzathine] Drug Allergy 1 Unknown (qualifier value) [facility] (20 sources) Penicillins Drug Allergy 5 Unknown [facility] (20 sources) Simvastatin; Translations: [SIMVASTATIN] Drug Allergy 2 Unknown [facility] (1 source) Penicillins Drug allergy (disorder) 5 [facility] (1 source) Penicillin Drug Allergy Unknown [email or web address] Other (1 source) Allergies Reconciled Propensity to adverse reactions Unknown [email or web address] Other (1 source) patient allergy list reviewed by nurse or physicia Propensity to adverse reactions 9 Comment:Done [email or web address] Other (3 sources) Simvastatin Propensity to adverse [...] sources) Anticholinergic Start: 10-20-2023 ipratropium Nasal 0.06% [place] Refill(s) 0 Start Date: 10/20/23 Status: Ordered [...] 1:00am Start: 08-17-2021 take 1 tablet by [facility] once daily metFORMIN (GLUCOPHAGE) 1,000 mg tablet Take 1,000 mg by mouth once daily. 08/17/2021 Active Start: 08-17-2021 take 2 tablets by [facility] once daily at mealtime metFORMIN (GLUCOPHAGE) 500 mg tablet TAKE 2 TABLETS BY MOUTH ONCE A DAY WITH FOOD 0 08/17/2021 Active Start: 05-14-2021 take 1 mg by mouth twice daily metformin 1000 mg oral tablet mg tab(s), Oral, BID, Refills(s) 0 Start Date: 05/14/21 Status: Ordered take 1 tablet by [facility] at mealtime, then take 1 tablet by mouth every twenty-four hours metFORMIN, OSM, (Fortamet) 500 MG 24 hr tablet Take 500 mg by mouth in the evening. Take with meals. Do not crush, chew, or split. 0 Active metFORMIN HCl 50 0 MG 1 tablet with a meal Active Comment on above: TAKE 2 TABLETS BY [facility] ONCE A DAY WITH FOOD Take 1,000 [...] by mouth twice daily. Take by mouth. 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] Onset: 10-10-2014 [...] Test Name Value Interpretation Reference Range Facility CBC W Auto Differential pane l (Bld)on 08-01-2024 Basophils (Bld) [#/Vol] 0.03 10*3/uL Normal <0.11 [facility] Comment on above: Order Comment: Nicanor camilo Type: BLOOD SPECIMEN Ordering Facility: [facility] Address: [address] [place] [address] Performed By: #### 5 7021-8 #### [facility] CLIA [id number] [address] [place] [address] 91837 Basophils/100 WBC (Bld) 0.5 % Normal [facility] Comment on above: Order Comment: Nicanor camilo Type: BLOOD SPECIMEN Ordering Facility: [facility] Address: [address] [place] [address] Performed By: #### 5 7021-8 #### [facility] CLIA [id number] [address] [place] [address] 55583 Differential cell count method Nom (Bld) Auto Normal [facility] Comment on above: Order Comment: Nicanor camilo Type: BLOOD SPECIMEN Ordering Facility: [facility] Address: [address] [place] [address] Performed By: #### 5 7021-8 #### [facility] CLIA [id number] [address] [place] [address] 70017 Eosinophils (Bld) [#/Vol] 0.50 10*3/uL High <0.46 [facility] Comment on above: Order Comment: Speci men Type: BLOOD SPECIMEN Ordering Facility: [facility] Address: [address] [place] [address] Performed By: #### 5 7021-8 #### [facility] CLIA [id number] [address] [place] [address] 94727 Eosinophils/100 WBC (Bld) 8.5 % Normal [facility] Comment on above: Order Comment: Speci men Type: BLOOD SPECIMEN Ordering Facility: [facility] Address: [address] [place] [address] Performed By: #### 5 7021-8 #### [facility] CLIA [id number] [address] [place] [address] 07620 Erythrocyte distribution width (RBC) [Ratio] 12.7 % Normal 11.5-15.0 [facility] Comment on above: Order Comment: Speci men Type: BLOOD SPECIMEN Ordering Facility: [facility] Address: [address] [place] [address] Performed By: #### 5 7021-8 #### [facility] CLIA [id number] [address] [place] [address] 95358 Hematocrit (Bld) [Volume fraction] 35.7 % Low 39.0-51.0 [facility] Comment on above: Order Comment: Speci men Type: BLOOD SPECIMEN Ordering Facility: [facility] Address: [address] [place] [address] Performed By: #### 5 7021-8 #### [facility] CLIA [id number] [address] [place] [address] 14314 Hemoglobin (Bld) [Mass/Vol] 12.2 g/dL Low 13.0-17.0 [facility] Comment on above: Order Comment: Speci men Type: BLOOD SPECIMEN Ordering Facility: [facility] Address: [address] [place] [address] Performed By: #### 5 7021-8 #### [facility] CLIA [id number] [address] [place] [address] Immature granulocytes (Bld) [#/Vol] 0.04 10*3/uL Normal <0.10 [facility] Comment on above: Order Comment: Speci men Type: BLOOD SPECIMEN Ordering Facility: [facility] Address: [address] [place] [address] Performed By: #### 5 7021-8 #### [facility] CLIA [id number] [address] [place] [address] 30692 Immature granulocytes/100 WBC (Bld) 0.7 % Normal [facility] Comment on above: Order Comment: Speci men Type: BLOOD SPECIMEN Ordering Facility: [facility] Address: [address] [place] [address] Performed By: #### 5 7021-8 #### [facility] CLIA [id number] [address] [place] [address] 96417 Lymphocytes (Bld) [#/Vol] 1.55 10*3/uL Normal 1.00-4.00 [facility] Comment on above: Order Comment: Speci men Type: BLOOD SPECIMEN Ordering Facility: [facility] Address: [address] [place] [address] Performed By: #### 5 7021-8 #### [facility] CLIA [id number] [address] [place] [address] 58777 Lymphocytes/100 WBC (Bld) 26.5 % Normal [facility] Comment on above: Order Comment: Speci men Type: BLOOD SPECIMEN Ordering Facility: [facility] Address: [address] [place] [address] Performed By: #### 5 7021-8 #### [facility] CLIA [id number] [address] [place] [address] 82545 MCH (RBC) [Entitic mass] 32.4 pg Normal 26.0-34.0 [facility] Comment on above: Order Comment: Speci men Type: BLOOD SPECIMEN Ordering Facility: [facility] Address: [address] [place] [address] Performed By: #### 5 7021-8 #### [facility] CLIA [id number] [address] [place] [address] 54171 MCHC (RBC) [Mass/Vol] 34.2 g/dL Normal 30.5-36.0 [facility] Comment on above: Order Comment: Speci men Type: BLOOD SPECIMEN Ordering Facility: [facility] Address: [address] [place] [address] Performed By: #### 5 7021-8 #### [facility] CLIA [id number] [address] [place] [address] 79260 MCV (RBC) [Entitic vol] 94.9 fL Normal 80.0-100.0 [facility] Comment on above: Order Comment: Speci men Type: BLOOD SPECIMEN Ordering Facility: [facility] Address: [address] [place] [address] Performed By: #### 5 7021-8 #### [facility] CLIA [id number] [address] [place] [address] 47867 Monocytes (Bld) [#/Vol] 0.55 10*3/uL Normal <0.87 [facility] Comment on above: Order Comment: Speci men Type: BLOOD SPECIMEN Ordering Facility: [facility] Address: [address] [place] [address] Performed By: #### 5 7021-8 #### [facility] CLIA [id number] [address] [place] [address] 07496 Monocytes/100 WBC (Bld) 9.4 % Normal [facility] Comment on above: Order Comment: Speci men Type: BLOOD SPECIMEN Ordering Facility: [facility] Address: [address] [place] [address] Performed By: #### 5 7021-8 #### [facility] CLIA [id number] [address] [place] [address] 71653 Neutrophils (Bld) [#/Vol] 3.19 10*3/uL Normal 1.45-7.50 [facility] Comment on above: Order Comment: Speci men Type: BLOOD SPECIMEN Ordering Facility: [facility] Address: [address] [place] [address] Performed By: #### 5 7021-8 #### [facility] CLIA [id number] [address] [place] [address] 90356 Neutrophils/100 WBC (Bld) 54.4 % Normal [facility] Comment on above: Order Comment: Speci men Type: BLOOD SPECIMEN Ordering Facility: [facility] Address: [address] [place], [place] [address] Performed By: #### 5 7021-8 #### [facility] CLIA [id number] [address] [place] [address] 28580 Nucleated RBC (Bld) [#/Vol] 10*3/uL Normal <0.01 [facility] Comment on above: Order Comment: Speci men Type: BLOOD SPECIMEN Ordering Facility: [facility] Address: [address] [place] [address] Performed By: #### 5 7021-8 #### [facility] CLIA [id number] [address] [place] [address] 80252 Nucleated RBC/100 WBC (Bld) [Ratio] 0.0 /100 WBC Normal [facility] Comment on above: Order Comment: Speci men Type: BLOOD SPECIMEN Ordering Facility: [facility] Address: [address] [place] [address] Performed By: #### 5 7021-8 #### [facility] CLIA [id number] [address] [place] [address] 59244 Platelet mean volume (Bld) [Entitic vol] 9.4 fL Normal 9.0-12.7 [facility] Comment on above: Order Comment: Speci men Type: BLOOD SPECIMEN Ordering Facility: [facility] Address: [address] [place] [address] Performed By: #### 5 7021-8 #### [facility] CLIA [id number] [address] [place] [address] Platelets (Bld) [#/Vol] 177 10*3/uL Normal 150-400 [facility] Comment on above: Order Comment: Speci men Type: BLOOD SPECIMEN Ordering Facility: [facility] Address: [address] [place] [address] Performed By: #### 5 7021-8 #### [facility] CLIA [id number] [address] [place] [address] 85686 RBC (Bld) [#/Vol] 3.76 10*6/uL Low 4.20-6.00 [facility] Comment on above: Order Comment: Speci men Type: BLOOD SPECIMEN Ordering Facility: [facility] Address: [address] [place] [address] Performed By: #### 5 7021-8 #### [facility] CLIA [id number] [address] [place] [address] 78303 WBC (Bld) [#/Vol] 5.86 10*3/uL Normal 3.70-11.00 [facility] Comment on above: Order Comment: Speci men Type: BLOOD SPECIMEN Ordering Facility: [facility] Address: [address] [place] [address] Performed By: #### 5 7021-8 #### [facility] CLIA [id number] [address] [place] [address] 40666 Comprehensive metabolic 2000 panelon 08-01-2024 Albumin [Mass/Vol] 4.2 g/dL Normal 3.9-4.9 [facility] Comment on above: Order Comment: Speci men Type: BLOOD SPECIMEN Ordering Facility: [facility] Address: [address] [place] [address] Performed By: #### 5 7021-8 #### [facility] CLIA [id number] [address] [place] [address] 45035 ALP [Catalytic activity/Vol] 75 U/L Normal 38-113 [facility] Comment on above: Order Comment: Speci men Type: BLOOD SPECIMEN Ordering Facility: [facility] Address: [address] [place] [address] Performed By: #### 5 7021-8 #### [facility] CLIA [id number] [address] [place] [address] ALT [Catalytic activity/Vol] 17 U/L Normal 10-54 [facility] Comment on above: Order Comment: Speci men Type: BLOOD SPECIMEN Ordering Facility: [facility] Address: [address] [place] [id number] Performed By: #### 5 7021-8 #### [facility] CLIA [id number] [address] [place] [address] Anion gap [Moles/Vol] 11 mmol/L Normal 8-15 [facility] Comment on above: Order Comment: Speci men Type: BLOOD SPECIMEN Ordering Facility: [facility] Address: [address] [place] [address] Performed By: #### 5 7021-8 #### [facility] CLIA [id number] [address] [place] [address] 04665 AST [Catalytic activity/Vol] 17 U/L Normal 14-40 [facility] Comment on above: Order Comment: Speci men Type: BLOOD SPECIMEN Ordering Facility: [facility] Address: [address] [place] [id number] Performed By: #### 5 7021-8 #### [facility] CLIA [id number] [address] [place] [address] 29538 Bilirubin [Mass/Vol] 0.6 mg/dL Normal 0.2-1.3 [facility] Comment on above: Order Comment: Speci men Type: BLOOD SPECIMEN Ordering Facility: [facility] Address: [facility] [place] [address] Performed By: #### 5 7021-8 #### [facility] CLIA [id number] [address] [place] [address] 98215 Calcium [Mass/Vol] 10.3 mg/dL High 8.5-10.2 [facility] Comment on above: Order Comment: Speci men Type: BLOOD SPECIMEN Ordering Facility: [facility] Address: [address] [place] [address] Performed By: #### 5 7021-8 #### [facility] CLIA [id number] [address] [place] [address] Chloride [Moles/Vol] 100 mmol/L Normal 98-107 [facility] Comment on above: Order Comment: Speci men Type: BLOOD SPECIMEN Ordering Facility: [facility] Address: [address] [place] [address] Performed By: #### 5 7021-8 #### [facility] CLIA [id number] [address] [place] [address] 37827 CO2 [Moles/Vol] 26 mmol/L Normal 22-30 [facility] Comment on above: Order Comment: Speci men Type: BLOOD SPECIMEN Ordering Facility: [facility] Address: [address] [place] [address] Performed By: #### 5 7021-8 #### [facility] CLIA [id number] [address] [place] [address] 44816 Creatinine [Mass/Vol] 0.81 mg/dL Normal 0.73-1.22 [facility] Comment on above: Order Comment: Speci men Type: BLOOD SPECIMEN Ordering Facility: [facility] Address: [address] [place] [address] Performed By: #### 5 7021-8 #### [facility] CLIA [id number] [address] [place] [address] 46874 Creatinine and Glomerular filtration rate.predicted panel (S/P/Bld) 90 mL/min/1.73m??? Normal >=60 [facility] Comment on above: Order Comment: Speci men Type: BLOOD SPECIMEN Ordering Facility: [facility] Address: [address] [place], [place] [address] Result Comment: Renae mated Glomerular Filtration Rate [...] GFR. Performed By: #### 5 7021-8 #### [facility] CLIA [id number] [address] [place] [address] Glucose [Mass/Vol] 119 mg/dL High 74-99 [facility] Comment on above: Order Comment: Nicanor camilo Type: BLOOD SPECIMEN Ordering Facility: [facility] Address: [address] [place] [address]26 Result Comment: The [place] [employer] Association (ADA) provides guidance for cutoff [...] Standards of Medical Care in Diabetes 2016, [place] [employer]. Diabetes Care. 2016.39(Suppl 1). Performed By: #### 5 7021-8 #### [facility] CLIA [id number] [address] [place] [address] 16095 Potassium [Moles/Vol] 4.8 mmol/L Normal 3.7-5.1 [facility] Comment on above: Order Comment: Nicanor camilo Type: BLOOD SPECIMEN Ordering Facility: [facility] Address: [address] [place] [address] Performed By: #### 5 7021-8 #### [facility] CLIA [id number] [address] [place] [address] Protein [Mass/Vol] 6.3 g/dL Normal 6.3-8.0 [facility] Comment on above: Order Comment: Nicanor camilo Type: BLOOD SPECIMEN Ordering Facility: [facility] Address: [address] [place] [address] Performed By: #### 5 7021-8 #### [facility] CLIA [id number] [address] [place] [address] 86124 Sodium [Moles/Vol] 137 mmol/L Normal 136-144 [facility] Comment on above: Order Comment: Speci men Type: BLOOD SPECIMEN Ordering Facility: [facility] Address: [address] [place] [address] Performed By: #### 5 7021-8 #### [facility] CLIA [id number] [address] [place] [address] 63148 Urea nitrogen [Mass/Vol] 14 mg/dL Normal 9-24 [facility] Comment on above: Order Comment: Speci men Type: BLOOD SPECIMEN Ordering Facility: [facility] Address: [address] [place] [address] Performed By: #### 5 7021-8 #### [facility] CLIA [id number] [address] [place], [place] [address] [facility] Prostate specific Ag [Mass/Vol] 0.19 ng/mL Normal <2.60 [facility] Comment on above: Order Comment: Speci men Type: BLOOD SPECIMEN Ordering Facility: [facility] Address: [address] [place] [address] Result Comment: Tota l PSA test methodology used is the Electrochemiluminescence Immunoassay by [employer]. Total PSA values by differing methodologies cannot be interchanged. Performed By: #### 2 857-1 #### [facility] CLIA [id number] [address] [place], [place] [address] [address] [facility] CNOVSPon 05-09-2024 CNOVSP Visit (SP) Office ([facility]) PABLO FELIX ([id number]) 1945 M Date Time Provider Department 05/09/24 9:15 AM MARCO A ESQUEDA During your visit today, we recorded the following information about you: Temperature Pulse Respiration Blood pressure 97.3 degrees 62/minute 16/minute 141/62 Weight 92.1 kg Marco A Esqueda MD 05/10/2024 7:40 AM Signed PATIENT NAME: Pablo Felix DATE: 05/09/2024 PRIMARY CARE PHYSICIAN: Dr. Jamar Fall OTHER PHYSICIANS: Dr. Anthony Scruggs, Dr. Khan, [facility] Cardiology Portions of this encounter [...] mg 24 hr tablet Take by mouth. 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 Left base margin positive for neoplasm. Seminal vesicles with no diagnostic abnormality. 2 resected lymph nodes negative for neoplasm. LABS: Hemoglobin (g/dL) Date Value 05/03/2024 11.5 05/08/2018 12.8 Hematocrit (%) Date Value 05/03/2024 33.2 05/08/2018 36.8 WBC (k/uL) Date Value 1 (more content not included)... Normal [facility] CBC W Auto Differential pane l (Bld)on 05-03-2024 Basophils (Bld) [#/Vol] 0.03 10*3/uL Normal <0.11 [facility] Comment on above: Order Comment: Speci men Type: BLOOD SPECIMEN Ordering Facility: [facility] Address: [address] [place] [address] Performed By: #### 5 7021-8 #### [facility] CLIA [id number] [address] [place] [address] 73391 Basophils/100 WBC (Bld) 0.5 % Normal [facility] Comment on above: Order Comment: Speci men Type: BLOOD SPECIMEN Ordering Facility: [facility] Address: [address] [place] [address] Performed By: #### 5 7021-8 #### [facility] CLIA [id number] [address] [place] [address] 23564 Differential cell count method Nom (Bld) Auto Normal [facility] Comment on above: Order Comment: Speci men Type: BLOOD SPECIMEN Ordering Facility: [facility] Address: [address] [place] [address] Performed By: #### 5 7021-8 #### [facility] CLIA [id number] [address] [place] [address] 34756 Eosinophils (Bld) [#/Vol] 0.48 10*3/uL High <0.46 [facility] Comment on above: Order Comment: Speci men Type: BLOOD SPECIMEN Ordering Facility: [facility] Address: [address] [place] [address] Performed By: #### 5 7021-8 #### [facility] CLIA [id number] [address] [place] [address] 82934 Eosinophils/100 WBC (Bld) 8.0 % Normal [facility] Comment on above: Order Comment: Speci men Type: BLOOD SPECIMEN Ordering Facility: [facility] Address: [address] [place] [address] Performed By: #### 5 7021-8 #### [facility] CLIA [id number] [address] [place] [address] 63647 Erythrocyte distribution width (RBC) [Ratio] 12.6 % Normal 11.5-15.0 [facility] Comment on above: Order Comment: Speci men Type: BLOOD SPECIMEN Ordering Facility: [facility] Address: [address] [place] [address] Performed By: #### 5 7021-8 #### [facility] CLIA [id number] [address] [place] [address] 74297 Hematocrit (Bld) [Volume fraction] 33.2 % Low 39.0-51.0 [facility] Comment on above: Order Comment: Speci men Type: BLOOD SPECIMEN Ordering Facility: [facility] Address: [address] [place] [address] Performed By: #### 5 7021-8 #### [facility] CLIA [id number] [address] [place] [address] 65914 Hemoglobin (Bld) [Mass/Vol] 11.5 g/dL Low 13.0-17.0 [facility] Comment on above: Order Comment: Speci men Type: BLOOD SPECIMEN Ordering Facility: [facility] Address: [address] [place] [address] Performed By: #### 5 7021-8 #### [facility] CLIA [id number] [address] [place] [address] 39590 Immature granulocytes (Bld) [#/Vol] 0.04 10*3/uL Normal <0.10 [facility] Comment on above: Order Comment: Speci men Type: BLOOD SPECIMEN Ordering Facility: [facility] Address: [address] [place] [address] Performed By: #### 5 7021-8 #### [facility] CLIA [id number] [address] [place] [address] 52669 Immature granulocytes/100 WBC (Bld) 0.7 % Normal [facility] Comment on above: Order Comment: Speci men Type: BLOOD SPECIMEN Ordering Facility: [facility] Address: [address] [place] [address] Performed By: #### 5 7021-8 #### [facility] CLIA [id number] [address] [place] [address] 59998 Lymphocytes (Bld) [#/Vol] 1.76 10*3/uL Normal 1.00-4.00 [facility] Comment on above: Order Comment: Speci men Type: BLOOD SPECIMEN Ordering Facility: [facility] Address: [address] [place] [address] Performed By: #### 5 7021-8 #### [facility] CLIA [id number] [address] [place] [address] 12139 Lymphocytes/100 WBC (Bld) 29.4 % Normal [facility] Comment on above: Order Comment: Speci men Type: BLOOD SPECIMEN Ordering Facility: [facility] Address: [address] [place] [address] Performed By: #### 5 7021-8 #### [facility] CLIA [id number] [address] [place] [address] 46502 MCH (RBC) [Entitic mass] 33.0 pg Normal 26.0-34.0 [facility] Comment on above: Order Comment: Speci men Type: BLOOD SPECIMEN Ordering Facility: [facility] Address: [address] [place] [address] Performed By: #### 5 7021-8 #### [facility] CLIA [id number] [address] [place] [address] MCHC (RBC) [Mass/Vol] 34.6 g/dL Normal 30.5-36.0 [facility] Comment on above: Order Comment: Speci men Type: BLOOD SPECIMEN Ordering Facility: [facility] Address: [address] [place] [address] Performed By: #### 5 7021-8 #### [facility] CLIA [id number] [address] [place] [address] 04352 MCV (RBC) [Entitic vol] 95.1 fL Normal 80.0-100.0 [facility] Comment on above: Order Comment: Speci men Type: BLOOD SPECIMEN Ordering Facility: [facility] Address: [address] [place] [address] Performed By: #### 5 7021-8 #### [facility] CLIA [id number] [address] [place] [address] 28392 Monocytes (Bld) [#/Vol] 0.48 10*3/uL Normal <0.87 [facility] Comment on above: Order Comment: Speci men Type: BLOOD SPECIMEN Ordering Facility: [facility] Address: [address] [place] [address] Performed By: #### 5 7021-8 #### [facility] CLIA [id number] [address] [place] [address] 11472 Monocytes/100 WBC (Bld) 8.0 % Normal [facility] Comment on above: Order Comment: Speci men Type: BLOOD SPECIMEN Ordering Facility: [facility] Address: [address] [place] [address] Performed By: #### 5 7021-8 #### [facility] CLIA [id number] [address] [place] [address] 13024 Neutrophils (Bld) [#/Vol] 3.19 10*3/uL Normal 1.45-7.50 [facility] Comment on above: Order Comment: Speci men Type: BLOOD SPECIMEN Ordering Facility: [facility] Address: [address] [place] [address] Performed By: #### 5 7021-8 #### [facility] CLIA [id number] [address] [place] [address] 01279 Neutrophils/100 WBC (Bld) 53.4 % Normal [facility] Comment on above: Order Comment: Speci men Type: BLOOD SPECIMEN Ordering Facility: [facility] Address: [address] [place] [address] Performed By: #### 5 7021-8 #### [facility] CLIA [id number] [address] [place] [address] Nucleated RBC (Bld) [#/Vol] 10*3/uL Normal <0.01 [facility] Comment on above: Order Comment: Speci men Type: BLOOD SPECIMEN Ordering Facility: [facility] Address: [address] [place] [address] Performed By: #### 5 7021-8 #### [facility] CLIA [id number] [address] [place] [address] 16652 Nucleated RBC/100 WBC (Bld) [Ratio] 0.0 /100 WBC Normal [facility] Comment on above: Order Comment: Speci men Type: BLOOD SPECIMEN Ordering Facility: [facility] Address: [address] [place] [address] Performed By: #### 5 7021-8 #### [facility] CLIA [id number] [address] [place] [address] 72296 Platelet mean volume (Bld) [Entitic vol] 9.3 fL Normal 9.0-12.7 [facility] Comment on above: Order Comment: Speci men Type: BLOOD SPECIMEN Ordering Facility: [facility] Address: [address] [place] [address] Performed By: #### 5 7021-8 #### [facility] CLIA [id number] [address] [place] [address] 79406 Platelets (Bld) [#/Vol] 192 10*3/uL Normal 150-400 [facility] Comment on above: Order Comment: Speci men Type: BLOOD SPECIMEN Ordering Facility: [facility] Address: [address] [place] [address] Performed By: #### 5 7021-8 #### [facility] CLIA [id number] [address] [place] [address] 01369 RBC (Bld) [#/Vol] 3.49 10*6/uL Low 4.20-6.00 [facility] Comment on above: Order Comment: Speci men Type: BLOOD SPECIMEN Ordering Facility: [facility] Address: [address] [place] [address] Performed By: #### 5 7021-8 #### [facility] CLIA [id number] [address] [place] [address] 64447 WBC (Bld) [#/Vol] 5.98 10*3/uL Normal 3.70-11.00 [facility] Comment on above: Order Comment: Speci men Type: BLOOD SPECIMEN Ordering Facility: [facility] Address: [address] [place] [address] Performed By: #### 5 7021-8 #### [facility] CLIA [id number] [address] [place] [address] 68527 Comprehensive metabolic 2000 panelon 05-03-2024 Albumin [Mass/Vol] 3.9 g/dL Normal 3.9-4.9 [facility] Comment on above: Order Comment: Speci men Type: BLOOD SPECIMEN Ordering Facility: [facility] Address: [address] [place] [address] Performed By: #### 5 7021-8 #### [facility] CLIA [id number] [address] [place] [address] 88134 ALP [Catalytic activity/Vol] 71 U/L Normal 38-113 [facility] Comment on above: Order Comment: Speci men Type: BLOOD SPECIMEN Ordering Facility: [facility] Address: [address] [place] [address] Performed By: #### 5 7021-8 #### [facility] CLIA [id number] [address] [place] [address] ALT [Catalytic activity/Vol] 16 U/L Normal 10-54 [facility] Comment on above: Order Comment: Speci men Type: BLOOD SPECIMEN Ordering Facility: [facility] Address: [address] [place] [address] Performed By: #### 5 7021-8 #### [facility] CLIA [id number] [address] [place] [address] Anion gap [Moles/Vol] 9 mmol/L Normal 8-15 [facility] Comment on above: Order Comment: Speci men Type: BLOOD SPECIMEN Ordering Facility: [facility] Address: [address] [place] [address] 73730 Performed By: #### 5 7021-8 #### [facility] CLIA [id number] [address] [place] [address] 95621 AST [Catalytic activity/Vol] 17 U/L Normal 14-40 [facility] Comment on above: Order Comment: Speci men Type: BLOOD SPECIMEN Ordering Facility: [facility] Address: [address] [place] [address] Performed By: #### 5 7021-8 #### [facility] CLIA [id number] [address] [place] [address] 84274 Bilirubin [Mass/Vol] 0.5 mg/dL Normal 0.2-1.3 [facility] Comment on above: Order Comment: Speci men Type: BLOOD SPECIMEN Ordering Facility: [facility] Address: [address] [place] [address] Performed By: #### 5 7021-8 #### [facility] CLIA [id number] [address] [place] [address] 78177 Calcium [Mass/Vol] 9.5 mg/dL Normal 8.5-10.2 [facility] Comment on above: Order Comment: Speci men Type: BLOOD SPECIMEN Ordering Facility: [facility] Address: [address] [place] [address] Performed By: #### 5 7021-8 #### [facility] CLIA [id number] [address] [place] [address] Chloride [Moles/Vol] 104 mmol/L Normal 98-107 [facility] Comment on above: Order Comment: Speci men Type: BLOOD SPECIMEN Ordering Facility: [facility] Address: [address] [place] [address] Performed By: #### 5 7021-8 #### [facility] CLIA [id number] [address] [place] [address] 23432 CO2 [Moles/Vol] 26 mmol/L Normal 22-30 [facility] Comment on above: Order Comment: Speci men Type: BLOOD SPECIMEN Ordering Facility: [facility] Address: [address] [place] [address] Performed By: #### 5 7021-8 #### [facility] CLIA [id number] [address] [place] [address] 12004 Creatinine [Mass/Vol] 0.88 mg/dL Normal 0.73-1.22 [facility] Comment on above: Order Comment: Speci men Type: BLOOD SPECIMEN Ordering Facility: [facility] Address: [address] [place] [address] Performed By: #### 5 7021-8 #### [facility] CLIA [id number] [address] [place] [address] 49400 Creatinine and Glomerular filtration rate.predicted panel (S/P/Bld) 88 mL/min/1.73m??? Normal >=60 [facility] Comment on above: Order Comment: Speci men Type: BLOOD SPECIMEN Ordering Facility: [facility] Address: [address] [place], [place] [address] Result Comment: Renae mated Glomerular Filtration Rate [...] GFR. Performed By: #### 5 7021-8 #### [facility] CLIA [id number] [address] [place] [address] 37228 Glucose [Mass/Vol] 106 mg/dL High 74-99 [facility] Comment on above: Order Comment: Nicanor camilo Type: BLOOD SPECIMEN Ordering Facility: [facility] Address: [address] [place] [address] 27704 Result Comment: The [place] [employer] (ADA) provides guidance for cutoff [...] Standards of Medical Care in Diabetes 2016, [place] [employer]. Diabetes Care. 2016.39(Suppl 1). Performed By: #### 5 7021-8 #### [facility] CLIA [id number] [address] [place] [address] 90531 Potassium [Moles/Vol] 5.6 mmol/L High 3.7-5.1 [facility] Comment on above: Order Comment: Nicanor camilo Type: BLOOD SPECIMEN Ordering Facility: [facility] Address: [address] [place] [address] Performed By: #### 5 7021-8 #### [facility] CLIA [id number] [address] [place] [address] 17090 Protein [Mass/Vol] 6.3 g/dL Normal 6.3-8.0 [facility] Comment on above: Order Comment: Nicanor camilo Type: BLOOD SPECIMEN Ordering Facility: [facility] Address: [address] [place] [address] Performed By: #### 5 7021-8 #### [facility] CLIA [id number] [address] [place] [address] Sodium [Moles/Vol] 139 mmol/L Normal 136-144 [facility] Comment on above: Order Comment: Speci men Type: BLOOD SPECIMEN Ordering Facility: [facility] Address: [address] [place] [address] Performed By: #### 5 7021-8 #### [facility] CLIA [id number] [address] [place], [place] [address] Urea nitrogen [Mass/Vol] 19 mg/dL Normal 9-24 [facility] Comment on above: Order Comment: Speci men Type: BLOOD SPECIMEN Ordering Facility: [facility] Address: [address] [place] [address] Performed By: #### 5 7021-8 #### [facility] CLIA [id number] [address] [place], [place] [address] PSA [facility] 05-03-2024 Prostate specific Ag [Mass/Vol] 0.18 ng/mL Normal <2.60 [facility] Comment on above: Order Comment: Speci men Type: BLOOD SPECIMEN Ordering Facility: [facility] Address: [address] [place] [address] Result Comment: Tota l PSA test methodology used is the Electrochemiluminescence Immunoassay by [employer]. Total PSA values by differing methodologies cannot be interchanged. Performed By: #### 5 7021-8 #### [facility] CLIA [id number] [address] [place], [place] [address] Ambulatory Visit Summaryon 1 Ambulatory Visit Summary [...] mg Tab) ipratropium nasal (ipratropium Nasal 0.06% [place]) metformin (metformin 1000 mg oral tablet) metoprolol [...] Anthony SCRUGGS MD Where: [facility] [id number]- You Need to Schedule the Following Appointments Follow Up with Anthony SCRUGGS MD, URL When: Where: [address] [place] [address]- Medications What How Much When Instructions Unchanged [...] concerns Unchanged ipratropium nasal (ipratropium Nasal 0.06% [place]) Contact prescribing physician if questions or concerns [...] Trouble st (more content not included)... 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 [place] 9 (5+4), pT2b, N0, Mo. Last Lupron administered 04/2022. Taking Xtandi 160mg qd and Xgeva q3mos. Last seen by [facility] oncology 02/02/24. Plan at that time [...] Contact Information KAEL JAMES, Anthony Lee, URL [address] [place], [place] [id number]- Additional Instructions: 6 mos w/ PSA and [...] hydrochlorothiazide-lisinop ril (more content not included)... Normal [facility] Comment on above: Result Comment: Elec tronically Signed By: Anthony SCRUGGS MD\\.br\\Date and Time Signed: 04/19/24 08:47 EDT\\.br\\Electronically Co-Signed By: Olamide Ureña\\.br\\Date and Time Co-Signed: 04/19/24 08:45 EDT Office Visiton 03-29-2024 Follow-up visit [id number] Pablo Felix 1945 M Date Provider Department Center 03/29/2024 Ag-[facility] Family History Problem Relation Age of Onset Coronary artery disease Father Family Status - Relation Status Age at Father Level of Service:50385 CT OFFICE/OUTPATIENT ESTABLISHED MOD MDM 30 MIN [facility] CNOVSPon 02-02-2024 CNOVSP Visit (SP) Office (H EMASA) PABLO FELIX ([id number]) 1945 M Date Time Provider Department 02/02/24 11:30 AM LYNNE ALARCON SUZANNA During your visit today, we recorded the following information about you: Temperature Pulse Respiration Blood pressure 97.3 degrees 52/minute 16/minute 137/54 Weight Height 93.7 kg 1.676 m Lynne AlarconERIC 02/02/2024 11:37 AM Signed PATIENT NAME: Pablo Felix DATE: February 02, 2024 PRIMARY CARE PHYSICIAN: Dr. Jamar Fall OTHER PHYSICIANS: Dr. Anthony Scruggs, Dr. Khan, [facility] Cardiology This note was copied [...] seen for scheduled follow-up. INTERIM HISTORY: Mr. Feilx presents for follow up of his prostate [...] mg 24 hr tablet Take by mouth. 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 Left base margin positive for neoplasm. Seminal vesicles with no diagnostic abnormality. 2 resected lymph nodes negative for neoplasm. LABS: Hemoglobin (g/dL) Date Va (more content not included)... Normal [facility] Basophils Auto (Bld) [#/Vol] on 01-25-2024 Basophils (Bld) [#/Vol] 0.04 10*3/uL <0.11 [facility] Basophils/100 WBC Auto (Bld) on 01-25-2024 Basophils/100 WBC (Bld) 0.6 % [facility] Blood manual differential co mment interpretation narrativeon 01-25-2024 Manual differential comment [place] (Bld) [Interp] Auto [facility] CBC W Auto Differential pane l (Bld)on 01-25-2024 Basophils (Bld) [#/Vol] 0.04 10*3/uL Normal <0.11 [facility] Comment on above: Order Comment: Speci men Type: BLOOD SPECIMEN Ordering Facility: [facility] Address: [address] [place] [address] Performed By: #### 5 7021-8 #### [facility] CLIA [id number] [address] [place] [address] Basophils/100 WBC (Bld) 0.6 % Normal [facility] Comment on above: Order Comment: Speci men Type: BLOOD SPECIMEN Ordering Facility: [facility] Address: [address] [place] [address] Performed By: #### 5 7021-8 #### [facility] CLIA [id number] [address] [place] [address] 71901 Differential cell count method Nom (Bld) Auto Normal [facility] Comment on above: Order Comment: Speci men Type: BLOOD SPECIMEN Ordering Facility: [facility] Address: [address] [place] [address] Performed By: #### 5 7021-8 #### [facility] CLIA [id number] [address] [place] [address] Eosinophils (Bld) [#/Vol] 0.40 10*3/uL Normal <0.46 [facility] Comment on above: Order Comment: Speci men Type: BLOOD SPECIMEN Ordering Facility: [facility] Address: [address] [place] [address] Performed By: #### 5 7021-8 #### [facility] CLIA [id number] [address] [place] [address] Eosinophils/100 WBC (Bld) 5.9 % Normal [facility] Comment on above: Order Comment: Speci men Type: BLOOD SPECIMEN Ordering Facility: [facility] Address: [address] [place] [address] Performed By: #### 5 7021-8 #### [facility] CLIA [id number] [address] [place] [address] 35458 Erythrocyte distribution width (RBC) [Ratio] 12.7 % Normal 11.5-15.0 [facility] Comment on above: Order Comment: Speci men Type: BLOOD SPECIMEN Ordering Facility: [facility] Address: [address] [place] [address] Performed By: #### 5 7021-8 #### [facility] CLIA [id number] [address] [place] [address] 02531 Hematocrit (Bld) [Volume fraction] 34.6 % Low 39.0-51.0 [facility] Comment on above: Order Comment: Speci men Type: BLOOD SPECIMEN Ordering Facility: [facility] Address: [address] [place] [address] Performed By: #### 5 7021-8 #### [facility] CLIA [id number] [address] [place] [address] 10733 Hemoglobin (Bld) [Mass/Vol] 11.8 g/dL Low 13.0-17.0 [facility] Comment on above: Order Comment: Speci men Type: BLOOD SPECIMEN Ordering Facility: [facility] Address: [address] [place] [address] Performed By: #### 5 7021-8 #### [facility] CLIA [id number] [address] [place] [address] 79205 Immature granulocytes (Bld) [#/Vol] 0.07 10*3/uL Normal <0.10 [facility] Comment on above: Order Comment: Speci men Type: BLOOD SPECIMEN Ordering Facility: [facility] Address: [address] [place] [address] Performed By: #### 5 7021-8 #### [facility] CLIA [id number] [address] [place] [address] 25325 Immature granulocytes/100 WBC (Bld) 1.0 % Normal [facility] Comment on above: Order Comment: Speci men Type: BLOOD SPECIMEN Ordering Facility: [facility] Address: [address] [place] [address] Performed By: #### 5 7021-8 #### [facility] CLIA [id number] [address] [place] [address] 93017 Lymphocytes (Bld) [#/Vol] 2.16 10*3/uL Normal 1.00-4.00 [facility] Comment on above: Order Comment: Speci men Type: BLOOD SPECIMEN Ordering Facility: [facility] Address: [address] [place] [address] Performed By: #### 5 7021-8 #### [facility] CLIA [id number] [address] [place] [address] 43555 Lymphocytes/100 WBC (Bld) 31.8 % Normal [facility] Comment on above: Order Comment: Speci men Type: BLOOD SPECIMEN Ordering Facility: [facility] Address: [address] [place] [address] Performed By: #### 5 7021-8 #### [facility] CLIA [id number] [address] [place] [address] 57293 MCH (RBC) [Entitic mass] 32.2 pg Normal 26.0-34.0 [facility] Comment on above: Order Comment: Speci men Type: BLOOD SPECIMEN Ordering Facility: [facility] Address: [address] [place] [address] Performed By: #### 5 7021-8 #### [facility] CLIA [id number] [address] [place] [address] 54542 MCHC (RBC) [Mass/Vol] 34.1 g/dL Normal 30.5-36.0 [facility] Comment on above: Order Comment: Speci men Type: BLOOD SPECIMEN Ordering Facility: [facility] Address: [address] [place] [address] Performed By: #### 5 7021-8 #### [facility] CLIA [id number] [address] [place] [address] 92622 MCV (RBC) [Entitic vol] 94.3 fL Normal 80.0-100.0 [facility] Comment on above: Order Comment: Speci men Type: BLOOD SPECIMEN Ordering Facility: [facility] Address: [address] [place] [address] Performed By: #### 5 7021-8 #### [facility] CLIA [id number] [address] [place] [address] 06159 Monocytes (Bld) [#/Vol] 0.60 10*3/uL Normal <0.87 [facility] Comment on above: Order Comment: Speci men Type: BLOOD SPECIMEN Ordering Facility: [facility] Address: [address] [place] [address] Performed By: #### 5 7021-8 #### [facility] CLIA [id number] [address] [place] [address] 84291 Monocytes/100 WBC (Bld) 8.8 % Normal [facility] Comment on above: Order Comment: Speci men Type: BLOOD SPECIMEN Ordering Facility: [facility] Address: [address] [place] [address] Performed By: #### 5 7021-8 #### [facility] CLIA [id number] [address] [place] [address] Neutrophils (Bld) [#/Vol] 3.53 10*3/uL Normal 1.45-7.50 [facility] Comment on above: Order Comment: Speci men Type: BLOOD SPECIMEN Ordering Facility: [facility] Address: [address] [place] [address] Performed By: #### 5 7021-8 #### [facility] CLIA [id number] [address] [place] [address] 60667 Neutrophils/100 WBC (Bld) 51.9 % Normal [facility] Comment on above: Order Comment: Speci men Type: BLOOD SPECIMEN Ordering Facility: [facility] Address: [address] [place] [address] 23552 Performed By: #### 5 7021-8 #### [facility] CLIA [id number] [address] [place] [address] 12497 Nucleated RBC (Bld) [#/Vol] 10*3/uL Normal <0.01 [facility] Comment on above: Order Comment: Speci men Type: BLOOD SPECIMEN Ordering Facility: [facility] Address: [address] [place] [address] 23630 Performed By: #### 5 7021-8 #### [facility] CLIA [id number] [address] [place] [address] 65558 Nucleated RBC/100 WBC (Bld) [Ratio] 0.0 /100 WBC Normal [facility] Comment on above: Order Comment: Speci men Type: BLOOD SPECIMEN Ordering Facility: [facility] Address: [address] [place] [address] Performed By: #### 5 7021-8 #### [facility] CLIA [id number] [address] [place] [address] 58200 Platelet mean volume (Bld) [Entitic vol] 10.3 fL Normal 9.0-12.7 [facility] Comment on above: Order Comment: Speci men Type: BLOOD SPECIMEN Ordering Facility: [facility] Address: [address] [place] [address] Performed By: #### 5 7021-8 #### [facility] CLIA [id number] [address] [place] [address] 20671 Platelets (Bld) [#/Vol] 184 10*3/uL Normal 150-400 [facility] Comment on above: Order Comment: Speci men Type: BLOOD SPECIMEN Ordering Facility: [facility] Address: [address] [place] [address] Performed By: #### 5 7021-8 #### [facility] CLIA [id number] [address] [place] [address] 82448 RBC (Bld) [#/Vol] 3.67 10*6/uL Low 4.20-6.00 [facility] Comment on above: Order Comment: Speci men Type: BLOOD SPECIMEN Ordering Facility: [facility] Address: [address] [place] [address] Performed By: #### 5 7021-8 #### [facility] CLIA [id number] [address] [place] [address] 04318 WBC (Bld) [#/Vol] 6.80 10*3/uL Normal 3.70-11.00 [facility] Comment on above: Order Comment: Speci men Type: BLOOD SPECIMEN Ordering Facility: [facility] Address: [address] [place] [address] Performed By: #### 5 7021-8 #### [facility] CLIA [id number] [address] [place] [address] 20076 Comprehensive metabolic 2000 panelon 01-25-2024 Albumin [Mass/Vol] 4.0 g/dL Normal 3.9-4.9 [facility] Comment on above: Order Comment: Speci men Type: BLOOD SPECIMEN Ordering Facility: [facility] Address: [address] [place] [address] Performed By: #### 5 7021-8 #### [facility] CLIA [id number] [address] [place] [address] 33400 ALP [Catalytic activity/Vol] 74 U/L Normal 38-113 [facility] Comment on above: Order Comment: Speci men Type: BLOOD SPECIMEN Ordering Facility: [facility] Address: [address] [place] [address] Performed By: #### 5 7021-8 #### [facility] CLIA [id number] [address] [place] [address] ALT [Catalytic activity/Vol] 18 U/L Normal 10-54 [facility] Comment on above: Order Comment: Speci men Type: BLOOD SPECIMEN Ordering Facility: [facility] Address: [address] [place] [address] Performed By: #### 5 7021-8 #### [facility] CLIA [id number] [address] [place] [address] 32941 Anion gap [Moles/Vol] 9 mmol/L Normal 8-15 [facility] Comment on above: Order Comment: Speci men Type: BLOOD SPECIMEN Ordering Facility: [facility] Address: [address] [place] [address] Performed By: #### 5 7021-8 #### [facility] CLIA [id number] [address] [place] [address] 41830 AST [Catalytic activity/Vol] 19 U/L Normal 14-40 [facility] Comment on above: Order Comment: Speci men Type: BLOOD SPECIMEN Ordering Facility: [facility] Address: [address] [place] [address] Performed By: #### 5 7021-8 #### [facility] CLIA [id number] [address] [place] [address] Bilirubin [Mass/Vol] 0.7 mg/dL Normal 0.2-1.3 [facility] Comment on above: Order Comment: Speci men Type: BLOOD SPECIMEN Ordering Facility: [facility] Address: [facility] [place] [address] Performed By: #### 5 7021-8 #### [facility] CLIA [id number] [address] [place] [address] Calcium [Mass/Vol] 9.9 mg/dL Normal 8.5-10.2 [facility] Comment on above: Order Comment: Speci men Type: BLOOD SPECIMEN Ordering Facility: [facility] Address: [address] [place] [address] Performed By: #### 5 7021-8 #### [facility] CLIA [id number] [address] [place] [address] 94490 Chloride [Moles/Vol] 103 mmol/L Normal 98-107 [facility] Comment on above: Order Comment: Speci men Type: BLOOD SPECIMEN Ordering Facility: [facility] Address: [address] [place] [address] Performed By: #### 5 7021-8 #### [facility] CLIA [id number] [address] [place] [address] 77175 CO2 [Moles/Vol] 25 mmol/L Normal 22-30 [facility] Comment on above: Order Comment: Speci men Type: BLOOD SPECIMEN Ordering Facility: [facility] Address: [address] [place] [address] Performed By: #### 5 7021-8 #### [facility] CLIA [id number] [address] [place] [address] 90813 Creatinine [Mass/Vol] 0.79 mg/dL Normal 0.73-1.22 [facility] Comment on above: Order Comment: Speci men Type: BLOOD SPECIMEN Ordering Facility: [facility] Address: [address] [place] [address] Performed By: #### 5 7021-8 #### [facility] CLIA [id number] [address] [place] [address] 46371 Creatinine and Glomerular filtration rate.predicted panel (S/P/Bld) 91 mL/min/1.73m??? Normal >=60 [facility] Comment on above: Order Comment: Speci men Type: BLOOD SPECIMEN Ordering Facility: [facility] Address: [address] [place] [address] 38100 Result Comment: Renae mated Glomerular Filtration Rate [...] GFR. Performed By: #### 5 7021-8 #### [facility] CLIA [id number] [address] [place] [address] 34091 Glucose [Mass/Vol] 112 mg/dL High 74-99 [facility] Comment on above: Order Comment: Nicanor camilo Type: BLOOD SPECIMEN Ordering Facility: [facility] Address: [address] [place], [place] [address] Result Comment: The [place] Diabetes Association (ADA) provides guidance for cutoff [...] Standards of Medical Care in Diabetes 2016, [place] [employer]. Diabetes Care. 2016.39(Suppl 1). Performed By: #### 5 7021-8 #### [facility] CLIA [id number] [address] [place] [address] 83867 Potassium [Moles/Vol] 5.2 mmol/L High 3.7-5.1 [facility] Comment on above: Order Comment: Nicanor camilo Type: BLOOD SPECIMEN Ordering Facility: [facility] Address: [address] [facility] [place] [address] Performed By: #### 5 7021-8 #### [facility] CLIA [id number] [address] [place] [address] 80712 Protein [Mass/Vol] 6.6 g/dL Normal 6.3-8.0 [facility] Comment on above: Order Comment: Speci men Type: BLOOD SPECIMEN Ordering Facility: [facility] Address: [address] [place] [address] Performed By: #### 5 7021-8 #### [facility] CLIA [id number] [address] [place] [address] Sodium [Moles/Vol] 137 mmol/L Normal 136-144 [facility] Comment on above: Order Comment: Speci men Type: BLOOD SPECIMEN Ordering Facility: [facility] Address: [address] [place] [address] Performed By: #### 5 7021-8 #### [facility] CLIA [id number] [address] [place] [address] 63367 Urea nitrogen [Mass/Vol] 15 mg/dL Normal 9-24 [facility] Comment on above: Order Comment: Speci men Type: BLOOD SPECIMEN Ordering Facility: [facility] Address: [address] [place] [address] Performed By: #### 5 7021-8 #### [facility] CLIA [id number] [address] [place] [address] 19925 Eosinophils/100 WBC Auto (Bl d)on 01-25-2024 Eosinophils/100 WBC (Bld) 5.9 % [facility] Erythrocyte distribution wid th Auto (RBC) [Ratio]on 01-25-2024 Erythrocyte distribution width (RBC) [Ratio] 12.7 % 11.5-15.0 [facility] Hematocrit Auto (Bld) [Volum e fraction]on 01-25-2024 Hematocrit (Bld) [Volume fraction] 34.6 % Low 39.0-51.0 [facility] Hemoglobin [Mass/volume] in Bloodon 01-25-2024 Hemoglobin (Bld) [Mass/Vol] 11.8 g/dL Low 13.0-17.0 [facility] Laboratory - Chemistry and C hemistry - challengeon 01-25-2024 Albumin [Mass/Vol] 4.0 g/dL 3.9-4.9 [facility] ALP [Catalytic activity/Vol] 74 U/L 38-113 [facility] ALT [Catalytic activity/Vol] 18 U/L 10-54 [facility] AST [Catalytic activity/Vol] 19 U/L 14-40 [facility] Bilirubin [Mass/Vol] 0.7 mg/dL 0.2-1.3 [facility] Calcium [Mass/Vol] 9.9 mg/dL 8.5-10.2 [facility] Chloride [Moles/Vol] 103 mmol/L 98-107 [facility] CO2 [Moles/Vol] 25 mmol/L 22-30 [facility] Creatinine [Mass/Vol] 0.79 mg/dL 0.73-1.22 [facility] Glucose [Mass/Vol] 112 mg/dL High 74-99 [facility] Comment on above: The [place] Diabete s Association (ADA) provides guidance for [...] Standards of Medical Care in Diabetes 2016, [place] [employer]. Diabetes Care. 2016.39(Suppl 1). Potassium [Moles/Vol] 5.2 mmol/L High 3.7-5.1 [facility] Sodium [Moles/Vol] 137 mmol/L 136-144 [facility] Urea nitrogen [Mass/Vol] 15 mg/dL 9-24 [facility] Laboratory - Hematology and Cell countson 01-25-2024 Eosinophils (Bld) [#/Vol] 0.40 10*3/uL <0.46 [facility] Immature granulocytes (Bld) [#/Vol] 0.07 10*3/uL <0.10 [facility] Immature granulocytes/100 WBC (Bld) 1.0 % [facility] Leukocytes [#/volume] correc jomar for nucleated erythrocytes in Blood by Automated counon 01-25-2024 WBC corrected for nucl RBC Auto (Bld) [#/Vol] 6.80 k/uL 3.70-11.00 [facility] Lymphocytes Auto (Bld) [#/Vo l]on 01-25-2024 Lymphocytes (Bld) [#/Vol] 2.16 10*3/uL 1.00-4.00 [facility] Lymphocytes/100 WBC Auto (Bl d)on 01-25-2024 Lymphocytes/100 WBC (Bld) 31.8 % [facility] MCH Auto (RBC) [Entitic mass ]on 01-25-2024 MCH (RBC) [Entitic mass] 32.2 pg 26.0-34.0 [facility] MCHC Auto (RBC) [Mass/Vol]on 01-25-2024 MCHC (RBC) [Mass/Vol] 34.1 g/dL 30.5-36.0 [facility] MCV Auto (RBC) [Entitic vol] on 01-25-2024 MCV (RBC) [Entitic vol] 94.3 fL 80.0-100.0 [facility] Monocytes Auto (Bld) [#/Vol] on 01-25-2024 Monocytes (Bld) [#/Vol] 0.60 10*3/uL <0.87 [facility] Monocytes/100 WBC Auto (Bld) on 01-25-2024 Monocytes/100 WBC (Bld) 8.8 % [facility] Neutrophils Auto (Bld) [#/Vo l]on 01-25-2024 Neutrophils (Bld) [#/Vol] 3.53 10*3/uL 1.45-7.50 [facility] Neutrophils/100 WBC Auto (Bl d)on 01-25-2024 Neutrophils/100 WBC (Bld) 51.9 % [facility] No Panel Informationon 01-24 Estimated GFR (CKD-EPI) 91 mL/min/1.73m??? >=60 [facility] Comment on above: Estimated Glomerular Filtration Rate [...] GFR. Prostate Specific Antigen 0.15 ng/mL <2.60 [facility] Comment on above: Total PSA test metho dology used is the Electrochemiluminescence Immunoassay by [employer]. Total PSA values by differing methodologies cannot be interchanged. Nucleated RBC Auto (Bld) [#/ Vol]on 01-25-2024 Nucleated RBC (Bld) [#/Vol] 10*3/uL <0.01 [facility] Nucleated erythrocytes [Pres ence] in Blood by Automated counton 01-25-2024 Nucleated RBC Auto Ql (Bld) 0.0 /100{WBC} [facility] PSA SerPl-mCncon 01-25-2024 Prostate specific Ag [Mass/Vol] 0.15 ng/mL Normal <2.60 [facility] Comment on above: Order Comment: Speci men Type: BLOOD SPECIMEN Ordering Facility: [facility] Address: [address] [place] [address] Result Comment: Tota l PSA test methodology used is the Electrochemiluminescence Immunoassay by [employer]. Total PSA values by differing methodologies cannot be interchanged. Performed By: #### 5 7021-8 #### [facility] CLIA [id number] [address] [place] [address] Platelet mean volume Auto (B ld) [Entitic vol]on 01-25-2024 Platelet mean volume (Bld) [Entitic vol] 10.3 fL 9.0-12.7 [facility] Platelets Auto (Bld) [#/Vol] on 01-25-2024 Platelets (Bld) [#/Vol] 184 10*3/uL 150-400 [facility] Protein [Mass/volume] in Ser um or Plasmaon 01-25-2024 Protein [Mass/Vol] 6.6 g/dL 6.3-8.0 [facility] RBC Auto (Bld) [#/Vol]on RBC (Bld) [#/Vol] 3.67 10*6/uL Low 4.20-6.00 [facility] Serum or plasma anion gap de terminationon 01-25-2024 Anion gap [Moles/Vol] 9 mmol/L 8-15 [facility] Consultation Noteon 11-07-19 Consultation Note [id number] Normal [facility] CNOVSPon 11-02-2023 CNOVSP Visit (SP) Office (H EMASA) JERICAPABLO An ([id number]) 1945 M Date Time Provider Department 11/02/23 9:30 AM CHRISTO HOWARD During your visit today, we recorded the following information about you: Temperature Pulse Respiration Blood pressure 97.8 degrees 56/minute 16/minute 123/44 Weight Height 92.9 kg 1.676 m Christo Howard APRN.CNP 11/03/2023 11:11 AM Signed PATIENT NAME: Pablo Felix DATE: 11/02/2023 PRIMARY CARE PHYSICIAN: Dr. Jamar Fall OTHER PHYSICIANS: Dr. Anthony Scruggs, Dr. Khan, [facility] Cardiology Portions of this encounter [...] mg 24 hr tablet Take by mouth. 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 Left base margin positive for neoplasm. Seminal vesicles with no diagnostic abnormality. 2 resected lymph nodes negative for neoplasm. LABS: Hem (more content not included)... Normal [facility] Basophils Auto (Bld) [#/Vol] on 10-30-2023 Basophils (Bld) [#/Vol] 0.04 10*3/uL <0.11 [facility] Basophils/100 WBC Auto (Bld) on 10-30-2023 Basophils/100 WBC (Bld) 0.5 % [facility] Blood manual differential co mment interpretation narrativeon 10-30-2023 Manual differential comment [place] (Bld) [Interp] Auto [facility] CBC W Auto Differential pane l (Bld)on 10-30-2023 Basophils (Bld) [#/Vol] 0.04 10*3/uL Normal <0.11 [facility] Comment on above: Order Comment: Speci men Type: BLOOD SPECIMEN Ordering Facility: [facility] Address: [address] [place] [address] Performed By: #### 5 7021-8 #### [facility] CLIA [id number] [address] [place] [address] Basophils/100 WBC (Bld) 0.5 % Normal [facility] Comment on above: Order Comment: Speci men Type: BLOOD SPECIMEN Ordering Facility: [facility] Address: [address] [place] [address] Performed By: #### 5 7021-8 #### [facility] CLIA [id number] [address] [place] [address] 64351 Differential cell count method Nom (Bld) Auto Normal [facility] Comment on above: Order Comment: Speci men Type: BLOOD SPECIMEN Ordering Facility: [facility] Address: [address] [place] [address] Performed By: #### 5 7021-8 #### [facility] CLIA [id number] [address] [place] [address] 51273 Eosinophils (Bld) [#/Vol] 0.35 10*3/uL Normal <0.46 [facility] Comment on above: Order Comment: Speci men Type: BLOOD SPECIMEN Ordering Facility: [facility] Address: [address] [place] [address] Performed By: #### 5 7021-8 #### [facility] CLIA [id number] [address] [place] [address] 68263 Eosinophils/100 WBC (Bld) 4.3 % Normal [facility] Comment on above: Order Comment: Speci men Type: BLOOD SPECIMEN Ordering Facility: [facility] Address: [address] [place] [address] Performed By: #### 5 7021-8 #### [facility] CLIA [id number] [address] [place] [address] 09357 Erythrocyte distribution width (RBC) [Ratio] 12.8 % Normal 11.5-15.0 [facility] Comment on above: Order Comment: Speci men Type: BLOOD SPECIMEN Ordering Facility: [facility] Address: [address] [place] [address] Performed By: #### 5 7021-8 #### [facility] CLIA [id number] [address] [place] [address] Hematocrit (Bld) [Volume fraction] 35.8 % Low 39.0-51.0 [facility] Comment on above: Order Comment: Speci men Type: BLOOD SPECIMEN Ordering Facility: [facility] Address: [address] [place] [address] Performed By: #### 5 7021-8 #### [facility] CLIA [id number] [address] [place] [address] 64396 Hemoglobin (Bld) [Mass/Vol] 12.2 g/dL Low 13.0-17.0 [facility] Comment on above: Order Comment: Speci men Type: BLOOD SPECIMEN Ordering Facility: [facility] Address: [address] [place] [address] Performed By: #### 5 7021-8 #### [facility] CLIA [id number] [address] [place] [address] 73900 Immature granulocytes (Bld) [#/Vol] 0.04 10*3/uL Normal <0.10 [facility] Comment on above: Order Comment: Speci men Type: BLOOD SPECIMEN Ordering Facility: [facility] Address: [address] [place] [address] Performed By: #### 5 7021-8 #### [facility] CLIA [id number] [address] [place] [address] 54514 Immature granulocytes/100 WBC (Bld) 0.5 % Normal [facility] Comment on above: Order Comment: Speci men Type: BLOOD SPECIMEN Ordering Facility: [facility] Address: [address] [place] [address] Performed By: #### 5 7021-8 #### [facility] CLIA [id number] [address] [place] [address] 71343 Lymphocytes (Bld) [#/Vol] 1.36 10*3/uL Normal 1.00-4.00 [facility] Comment on above: Order Comment: Speci men Type: BLOOD SPECIMEN Ordering Facility: [facility] Address: [facility] [place] [address] Performed By: #### 5 7021-8 #### [facility] CLIA [id number] [address] [place] [address] 52009 Lymphocytes/100 WBC (Bld) 16.6 % Normal [facility] Comment on above: Order Comment: Speci men Type: BLOOD SPECIMEN Ordering Facility: [facility] Address: [address] [place] [address] Performed By: #### 5 7021-8 #### [facility] CLIA [id number] [address] [place] [address] 53501 MCH (RBC) [Entitic mass] 31.3 pg Normal 26.0-34.0 [facility] Comment on above: Order Comment: Speci men Type: BLOOD SPECIMEN Ordering Facility: [facility] Address: [address] [place] [address] Performed By: #### 5 7021-8 #### [facility] CLIA [id number] [address] [place] [address] 68854 MCHC (RBC) [Mass/Vol] 34.1 g/dL Normal 30.5-36.0 [facility] Comment on above: Order Comment: Speci men Type: BLOOD SPECIMEN Ordering Facility: [facility] Address: [address] [place] [address] Performed By: #### 5 7021-8 #### [facility] CLIA [id number] [address] [place] [address] 28309 MCV (RBC) [Entitic vol] 91.8 fL Normal 80.0-100.0 [facility] Comment on above: Order Comment: Speci men Type: BLOOD SPECIMEN Ordering Facility: [facility] Address: [address] [place] [address] Performed By: #### 5 7021-8 #### [facility] CLIA [id number] [address] [place] [address] 18561 Monocytes (Bld) [#/Vol] 0.62 10*3/uL Normal <0.87 [facility] Comment on above: Order Comment: Speci men Type: BLOOD SPECIMEN Ordering Facility: [facility] Address: [address] [place] [id number] Performed By: #### 5 7021-8 #### [facility] CLIA [id number] [address] [place] [address] 62850 Monocytes/100 WBC (Bld) 7.6 % Normal [facility] Comment on above: Order Comment: Speci men Type: BLOOD SPECIMEN Ordering Facility: [facility] Address: [address] [place] [address] Performed By: #### 5 7021-8 #### [facility] CLIA [id number] [address] [place] [address] 38037 Neutrophils (Bld) [#/Vol] 5.78 10*3/uL Normal 1.45-7.50 [facility] Comment on above: Order Comment: Speci men Type: BLOOD SPECIMEN Ordering Facility: [facility] Address: [address] [place] [address] Performed By: #### 5 7021-8 #### [facility] CLIA [id number] [address] [place] [address] 78912 Neutrophils/100 WBC (Bld) 70.5 % Normal [facility] Comment on above: Order Comment: Speci men Type: BLOOD SPECIMEN Ordering Facility: [facility] Address: [address] [place] [address] Performed By: #### 5 7021-8 #### [facility] CLIA [id number] [address] [place] [address] 88286 Nucleated RBC (Bld) [#/Vol] 10*3/uL Normal <0.01 [facility] Comment on above: Order Comment: Speci men Type: BLOOD SPECIMEN Ordering Facility: [facility] Address: [address] [place] [address] Performed By: #### 5 7021-8 #### [facility] CLIA [id number] [address] [place] [address] Nucleated RBC/100 WBC (Bld) [Ratio] 0.0 /100 WBC Normal [facility] Comment on above: Order Comment: Speci men Type: BLOOD SPECIMEN Ordering Facility: [facility] Address: [address] [place] [address]40 Performed By: #### 5 7021-8 #### [facility] CLIA [id number] [address] [place] [address] 27505 Platelet mean volume (Bld) [Entitic vol] 9.5 fL Normal 9.0-12.7 [facility] Comment on above: Order Comment: Speci men Type: BLOOD SPECIMEN Ordering Facility: [facility] Address: [address] [place] [address] 09671 Performed By: #### 5 7021-8 #### [facility] CLIA [id number] [address] [place] [address] 17903 Platelets (Bld) [#/Vol] 192 10*3/uL Normal 150-400 [facility] Comment on above: Order Comment: Speci men Type: BLOOD SPECIMEN Ordering Facility: [facility] Address: [address] [place] [address] Performed By: #### 5 7021-8 #### [facility] CLIA [id number] [address] [place] [address] 29773 RBC (Bld) [#/Vol] 3.90 10*6/uL Low 4.20-6.00 [facility] Comment on above: Order Comment: Speci men Type: BLOOD SPECIMEN Ordering Facility: [facility] Address: [address] [place] [address] 69102 Performed By: #### 5 7021-8 #### [facility] CLIA [id number] [address] [place] [address] 32820 WBC (Bld) [#/Vol] 8.19 10*3/uL Normal 3.70-11.00 [facility] Comment on above: Order Comment: Speci men Type: BLOOD SPECIMEN Ordering Facility: [facility] Address: [address] [place] [address] Performed By: #### 5 7021-8 #### [facility] CLIA [id number] [address] [place] [address] 96842 Comprehensive metabolic 2000 panelon 10-30-2023 Albumin [Mass/Vol] 4.1 g/dL Normal 3.9-4.9 [facility] Comment on above: Order Comment: Speci men Type: BLOOD SPECIMEN Ordering Facility: [facility] Address: [address] [place], [place] [address] Performed By: #### 5 7021-8 #### [facility] CLIA [id number] [address] [place] [address] 43519 ALP [Catalytic activity/Vol] 75 U/L Normal 38-113 [facility] Comment on above: Order Comment: Speci men Type: BLOOD SPECIMEN Ordering Facility: [facility] Address: [address] [place], [place] [address] Performed By: #### 5 7021-8 #### [facility] CLIA [id number] [address] [place] [address] 49541 ALT [Catalytic activity/Vol] 16 U/L Normal 10-54 [facility] Comment on above: Order Comment: Speci men Type: BLOOD SPECIMEN Ordering Facility: [facility] Address: [address] [place] [address] Performed By: #### 5 7021-8 #### [facility] CLIA [id number] [address] [place] [address] 36465 Anion gap [Moles/Vol] 13 mmol/L Normal 9-18 [facility] Comment on above: Order Comment: Speci men Type: BLOOD SPECIMEN Ordering Facility: [facility] Address: [address] [place], [place] [id number] Performed By: #### 5 7021-8 #### [facility] CLIA [id number] [address] [place] [address] 65034 AST [Catalytic activity/Vol] 16 U/L Normal 14-40 [facility] Comment on above: Order Comment: Speci men Type: BLOOD SPECIMEN Ordering Facility: [facility] Address: [address] [place] [address] Performed By: #### 5 7021-8 #### [facility] CLIA [id number] [address] [place] [address] Bilirubin [Mass/Vol] 0.7 mg/dL Normal 0.2-1.3 [facility] Comment on above: Order Comment: Speci men Type: BLOOD SPECIMEN Ordering Facility: [facility] Address: [address] [place] [address] Performed By: #### 5 7021-8 #### [facility] CLIA [id number] [address] [place] [address]4 Calcium [Mass/Vol] 9.8 mg/dL Normal 8.5-10.2 [facility] Comment on above: Order Comment: Speci men Type: BLOOD SPECIMEN Ordering Facility: [facility] Address: [address] [place] [address] Performed By: #### 5 7021-8 #### [facility] CLIA [id number] [address] [place] [address]54 Chloride [Moles/Vol] 103 mmol/L Normal 97-105 [facility] Comment on above: Order Comment: Speci men Type: BLOOD SPECIMEN Ordering Facility: [facility] Address: [address] [place] [address] Performed By: #### 5 7021-8 #### [facility] CLIA [id number] [address] [place] [address] CO2 [Moles/Vol] 24 mmol/L Normal 22-30 [facility] Comment on above: Order Comment: Speci men Type: BLOOD SPECIMEN Ordering Facility: [facility] Address: [address] [place] [address] Performed By: #### 5 7021-8 #### [facility] CLIA [id number] [address] [place] [address] Creatinine [Mass/Vol] 0.88 mg/dL Normal 0.73-1.22 [facility] Comment on above: Order Comment: Nicanor camilo Type: BLOOD SPECIMEN Ordering Facility: [facility] Address: [address] [place], [place] [id number] Performed By: #### 5 7021-8 #### [facility] CLIA [id number] [address] [place] [address] Creatinine and Glomerular filtration rate.predicted panel (S/P/Bld) 89 mL/min/1.73m??? Normal >=60 [facility] Comment on above: Order Comment: Nicanor camilo Type: BLOOD SPECIMEN Ordering Facility: [facility] Address: [address] [place] [address] Result Comment: Renae mated Glomerular Filtration Rate [...] GFR. Performed By: #### 5 7021-8 #### [facility] CLIA [id number] [address] [place] [address]37 Glucose [Mass/Vol] 128 mg/dL High 74-99 [facility] Comment on above: Order Comment: Nicanor camilo Type: BLOOD SPECIMEN Ordering Facility: [facility] Address: [address] [place], [place] [id number] Result Comment: The [place] Diabetes Association (ADA) provides guidance for cutoff [...] Standards of Medical Care in Diabetes 2016, [place] [employer] Association. Diabetes Care. 2016.39(Suppl 1). Performed By: #### 5 7021-8 #### [facility] CLIA [id number] [address] [place] [address] Potassium [Moles/Vol] 4.8 mmol/L Normal 3.7-5.1 [facility] Comment on above: Order Comment: Speci men Type: BLOOD SPECIMEN Ordering Facility: [facility] Address: [address] [place] [address] Performed By: #### 5 7021-8 #### [facility] CLIA [id number] [address] [place] [address] Protein [Mass/Vol] 6.5 g/dL Normal 6.3-8.0 [facility] Comment on above: Order Comment: Speci men Type: BLOOD SPECIMEN Ordering Facility: [facility] Address: [address] [place] [address] Performed By: #### 5 7021-8 #### [facility] CLIA [id number] [address] [place] [address]327 Sodium [Moles/Vol] 140 mmol/L Normal 136-144 [facility] Comment on above: Order Comment: Speci men Type: BLOOD SPECIMEN Ordering Facility: [facility] Address: [address] [place] [address] Performed By: #### 5 7021-8 #### [facility] CLIA [id number] [address] [place] [address]169 Urea nitrogen [Mass/Vol] 18 mg/dL Normal 9-24 [facility] Comment on above: Order Comment: Speci men Type: BLOOD SPECIMEN Ordering Facility: [facility] Address: [address] [place] [address] Performed By: #### 5 7021-8 #### [facility] CLIA [id number] [address] [place] [address]69 Eosinophils/100 WBC Auto (Bl d)on 10-30-2023 Eosinophils/100 WBC (Bld) 4.3 % [facility] Erythrocyte distribution wid th Auto (RBC) [Ratio]on 10-30-2023 Erythrocyte distribution width (RBC) [Ratio] 12.8 % 11.5-15.0 [facility] Hematocrit Auto (Bld) [Volum e fraction]on 10-30-2023 Hematocrit (Bld) [Volume fraction] 35.8 % 39.0-51.0 [facility] Hemoglobin [Mass/volume] in Bloodon 10-30-2023 Hemoglobin (Bld) [Mass/Vol] 12.2 g/dL 13.0-17.0 [facility] Laboratory - Chemistry and C hemistry - challengeon 10-30-2023 Albumin [Mass/Vol] 4.1 g/dL 3.9-4.9 [facility] ALP [Catalytic activity/Vol] 75 U/L 38-113 [facility] ALT [Catalytic activity/Vol] 16 U/L 10-54 [facility] AST [Catalytic activity/Vol] 16 U/L 14-40 [facility] Bilirubin [Mass/Vol] 0.7 mg/dL 0.2-1.3 [facility] Calcium [Mass/Vol] 9.8 mg/dL 8.5-10.2 [facility] Chloride [Moles/Vol] 103 mmol/L 97-105 [facility] CO2 [Moles/Vol] 24 mmol/L 22-30 [facility] Creatinine [Mass/Vol] 0.88 mg/dL 0.73-1.22 [facility] Glucose [Mass/Vol] 128 mg/dL 74-99 [facility] Comment on above: The [place] Diabete s Association (ADA) provides guidance for [...] Standards of Medical Care in Diabetes 2016, [place] Diabetes Association. Diabetes Care. 2016.39(Suppl 1). Potassium [Moles/Vol] 4.8 mmol/L 3.7-5.1 [facility] Sodium [Moles/Vol] 140 mmol/L 136-144 [facility] Urea nitrogen [Mass/Vol] 18 mg/dL 9-24 [facility] Laboratory - Hematology and Cell countson 10-30-2023 Eosinophils (Bld) [#/Vol] 0.35 10*3/uL <0.46 [facility] Immature granulocytes (Bld) [#/Vol] 0.04 10*3/uL <0.10 [facility] Immature granulocytes/100 WBC (Bld) 0.5 % [facility] Leukocytes [#/volume] correc jomar for nucleated erythrocytes in Blood by Automated counon 10-30-2023 WBC corrected for nucl RBC Auto (Bld) [#/Vol] 8.19 k/uL 3.70-11.00 [facility] Lymphocytes Auto (Bld) [#/Vo l]on 10-30-2023 Lymphocytes (Bld) [#/Vol] 1.36 10*3/uL 1.00-4.00 [facility] Lymphocytes/100 WBC Auto (Bl d)on 10-30-2023 Lymphocytes/100 WBC (Bld) 16.6 % [facility] MCH Auto (RBC) [Entitic mass ]on 10-30-2023 MCH (RBC) [Entitic mass] 31.3 pg 26.0-34.0 [facility] MCHC Auto (RBC) [Mass/Vol]on 10-30-2023 MCHC (RBC) [Mass/Vol] 34.1 g/dL 30.5-36.0 [facility] MCV Auto (RBC) [Entitic vol] on 10-30-2023 MCV (RBC) [Entitic vol] 91.8 fL 80.0-100.0 [facility] Monocytes Auto (Bld) [#/Vol] on 10-30-2023 Monocytes (Bld) [#/Vol] 0.62 10*3/uL <0.87 [facility] Monocytes/100 WBC Auto (Bld) on 10-30-2023 Monocytes/100 WBC (Bld) 7.6 % [facility] Neutrophils Auto (Bld) [#/Vo l]on 10-30-2023 Neutrophils (Bld) [#/Vol] 5.78 10*3/uL 1.45-7.50 [facility] Neutrophils/100 WBC Auto (Bl d)on 10-30-2023 Neutrophils/100 WBC (Bld) 70.5 % [facility] No Panel Informationon 10-29 Estimated GFR (CKD-EPI) 89 mL/min/1.73m??? >=60 [facility] Comment on above: Estimated Glomerular Filtration Rate [...] GFR. Prostate Specific Antigen 0.16 ng/mL <2.60 [facility] Comment on above: Total PSA test metho dology used is the Electrochemiluminescence Immunoassay by [employer]. Total PSA values by differing methodologies cannot be interchanged. Testosterone Level 78 ng/dL 193-824 [facility] Comment on above: A testosterone level in the 193-320 ng/dL range with associated clinical symptoms is considered low and may indicate hypogonadism (from NEJ 2010 363:123-135). Results >320 ng/dL are considered normal.Result rechecked. Nucleated RBC Auto (Bld) [#/ Vol]on 10-30-2023 Nucleated RBC (Bld) [#/Vol] 10*3/uL <0.01 [facility] Nucleated erythrocytes [Pres ence] in Blood by Automated counton 10-30-2023 Nucleated RBC Auto Ql (Bld) 0.0 /100{WBC} [facility] PSA SerPl-mCncon 10-30-2023 Prostate specific Ag [Mass/Vol] 0.16 ng/mL Normal <2.60 [facility] Comment on above: Order Comment: Speci men Type: BLOOD SPECIMEN Ordering Facility: [facility] Address: [address] [place] [address] Result Comment: Carlosa l PSA test methodology used is the Electrochemiluminescence Immunoassay by [employer]. Total PSA values by differing methodologies cannot be interchanged. Performed By: #### 2 857-1 #### [facility] CLIA [id number] [address] [place] [address] [place] Platelet mean volume Auto (B ld) [Entitic vol]on 10-30-2023 Platelet mean volume (Bld) [Entitic vol] 9.5 fL 9.0-12.7 [facility] Platelets Auto (Bld) [#/Vol] on 10-30-2023 Platelets (Bld) [#/Vol] 192 10*3/uL 150-400 [facility] Protein [Mass/volume] in Ser um or Plasmaon 10-30-2023 Protein [Mass/Vol] 6.5 g/dL 6.3-8.0 [facility] RBC Auto (Bld) [#/Vol]on RBC (Bld) [#/Vol] 3.90 10*6/uL 4.20-6.00 [facility] Serum or plasma anion gap de terminationon 10-30-2023 Anion gap [Moles/Vol] 13 mmol/L 9-18 [facility] Testost SerPl-mCncon 024 Testosterone [Mass/Vol] 78 ng/dL Low 193-824 [facility] Comment on above: Order Comment: Speci men Type: BLOOD SPECIMEN Ordering Facility: [facility] Address: [address] [place] [address] Result Comment: A te stosterone level in the 193-320 ng/dL range with associated clinical symptoms is considered low and may indicate hypogonadism (from NEJM 2010 363:123-135). Results >320 ng/dL are considered normal. Result rechecked. Performed By: #### 2 986-8 #### [facility] CLIA [id number] [id number] [place] Patient Educationon 10-20-19 24 [...] under a microscope. This is called the Hammond score and the total score can range from 6?10, indicating how likely it is that the cancer will spread (metastasize) to other parts of the body. The higher the score, the greater the likelihood that the cancer will spread. ? Hammond 6 or lower: This indicates that the cancer cells look similar to normal prostate cells (well differentiated). ? Hammond 7: This indicates that the cancer cells look somewhat similar to normal prostate cells (moderately differentiated). ? Hammond 8, 9, or 10: This indicates that [...] external be (more content not included)... Normal 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 Last Lupron [...] Contact Information KAEL JAMES, Anthony Lee, URL [facility] [place] [address]- Additional Instructions: 6 mos w/ PSA and [...] 1 tab(s), Oral, Daily ipratropium Nasal 0.06% [place] metformin 1000 mg oral tablet, Oral, BID metoprolol 25 mg ER Tab, 25 mg= 1 tab(s), Oral, BID Vitamin D3 Xtandi 80 mg oral tablet, Oral, Daily Allergies penicillin G benzathine (Unknown) Social History Alcohol Current, 1-2 times per year, 02/04/2019 Tobacco Never (less than 100 in lifetime) Tobacco Use:. Never Smokeless Tobacco Use:. (more content not included)... [facility] Comment on above: Result Comment: Elec tronically Signed By: Anthony SCRUGGS MD\\.br\\Date and Time Signed: 10/20/23 09:57 EDT\\.br\\Electronically Co-Signed By: Olamide Ureña.br\\Date and Time Co-Signed: 10/20/23 09:55 EDT Lab Reportson 10-10-2023 Lab Reports [id number]#1.00TIFF [facility] RAD - MISCon 10-10-2023 RAD - MISC [id number]#1.00TIFF [facility] No Panel Informationon 10-08 Prostate Specific Antigen Total <0.13 ng/mL <=4.00 [facility] No Panel Informationon 08-28 [facility] Type of biopsy: schmidt ential Informed [...] of lidocaine used: 0.5 cc [facility] Consultation Noteon 08-04-19 24 Consultation Note [id number]#1.00TIFF Normal [facility] Office Visiton 06-22-2023 Follow-up visit [id number] Pablo Felix 1945 M Date Provider Department Center 06/22/2023 Erika-BRIDGER MULLIGAN [facility] Family History Problem Relation Age of Onset Coronary artery disease Father Family Status - Relation Status Age at Father Level of Service:[address] CT OFFICE/OUTPATIENT ESTABLISHED MOD MDM 30-39 MIN Normal [facility] RAD - MISCon 04-24-2023 RAD - MISC [id number]#1.00TIFF Normal [facility] GLYCOHEMOGLOBIN A1Con 2022 ADA RECOMMENDATION SEE BELOW Normal [facility] Comment on above: Result Comment: ADA RECOMMENDED LIMIT 4.0 - 6.0 ADA THERAPEUTIC TARGET < 7.0 ACTION SUGGESTED > 7.0 Performed By: #### D ATA1C #### [facility] [address] [address] [address] Bharati Aguiar Glucose [Mass/Vol] 131 mg/dL Normal [facility] Comment on above: Performed By: #### D ATA1C #### [facility] [address] [address] [address] Bharati Aguiar HbA1c (Bld) [Mass fraction] 6.2 % Normal 4.5-6.2 [facility] Comment on above: Performed By: #### D ATA1C #### [facility] [address] [address] [address] Bharati Aguiar XR CSPINE OBL FLEX_EXTon [...] CYNTHIA TORRES Date: 2022-07-21 15:52 Normal [facility] GLYCOHEMOGLOBIN A1Con 2021 ADA RECOMMENDATION SEE BELOW Normal [facility] Comment on above: Result Comment: ADA RECOMMENDED LIMIT 4.0 - 6.0 ADA THERAPEUTIC TARGET < 7.0 ACTION SUGGESTED > 7.0 Performed By: #### D ATA1C #### [facility] [address] [address] [address] Bharati Aguiar Glucose [Mass/Vol] 134 mg/dL Normal [facility] Comment on above: Performed By: #### D ATA1C #### [facility] [address] [address] [address] Bharati Aguiar HbA1c (Bld) [Mass fraction] 6.3 % Critically high 4.5-6.2 [facility] Comment on above: Performed By: #### D ATA1C #### [facility] [address] [address] [address] Bharati Aguiar ECHOCARDIO M/2D COMPLETEon 1 ECHOCARDIO M/2D COMPLETE Patient: PABLO FELIX Exam Date: 04/27/2022 : 1945 Gender:M Ordering : LORA ENGLISH Admission #: [id number] Family : DR JAMAR FALL DSony Order #: [id number] CLICK HERE TO VIEW EXAM ECHOCARDIOGRAM REPORT [...] A1Con 2021 ADA RECOMMENDATION SEE BELOW Normal [facility] Comment on above: Result Comment: ADA RECOMMENDED LIMIT 4.0 - 6.0 ADA THERAPEUTIC TARGET < 7.0 ACTION SUGGESTED > 7.0 Performed By: #### D ATA1C ####[facility] [id number] [place], [place] [address]Kq. Bharati Aguiar Glucose [Mass/Vol] 137 mg/dL Normal [facility] Comment on above: Performed By: #### D ATA1C ####[facility] [id number] [place], [place] [address]Ry. Bharati Aguiar HbA1c (Bld) [Mass fraction] 6.4 % Critically high 4.5-6.2 [facility] Comment on above: Performed By: #### D ATA1C ####[facility] [id number] [place], [place] [address]Ld. Bharati Aguiar NM BONE SC WH BODYon [...] it was not obviously included in the bcovt-us-uqsz of the recent CT. There are foci [...] FEDE DE JESUS Date: 2021-11-06 12:45 Normal [facility] CT CHEST W CONon 11-05-2021 CT CHEST [...] LUIZ UMANA Date: 2021-11-05 14:08 Normal [facility] PROF 14(COMP METB)on 022 Albumin [Mass/Vol] 3.6 g/dL Normal 3.4-5.0 [facility] Comment on above: Performed By: #### C MP #### [facility] [address] [place] [address] Dr. Bharati Aguiar Albumin/Globulin [Mass ratio] 1.1 {ratio} Normal [facility] Comment on above: Performed By: #### C MP #### [facility] [address] [address] [address] Bharati Aguiar ALP [Catalytic activity/Vol] 89 U/L Normal 46-116 [facility] Comment on above: Performed By: #### C MP #### [facility] [address] [address] [address] Bharati Aguiar ALT [Catalytic activity/Vol] 33 U/L Normal 16-63 [facility] Comment on above: Performed By: #### C MP #### [facility] [address] [address] [address] Bharati Aguiar Anion gap [Moles/Vol] 12.1 mmol/L Normal [facility] Comment on above: Performed By: #### C MP #### [facility] [address] [place] [address] Dr. Bharati Aguiar AST [Catalytic activity/Vol] 19 U/L Normal 15-37 [facility] Comment on above: Performed By: #### C MP #### [facility] [address] [place] [address] Dr. Bharati Aguiar Bilirubin [Mass/Vol] 0.9 mg/dL Normal 0.2-1.3 [facility] Comment on above: Performed By: #### C MP #### [facility] [address] [address] [address] Bharati Aguiar Calcium [Mass/Vol] 8.8 mg/dL Normal 8.5-10.1 [facility] Comment on above: Performed By: #### C MP #### [facility] [address] [address] [address] Bharati Aguiar Chloride [Moles/Vol] 103 mmol/L Normal 98-107 [facility] Comment on above: Performed By: #### C MP #### [facility] [address] [address] [address] Bharati Aguiar CO2 [Moles/Vol] 28.6 mmol/L Normal 22.0-30.0 [facility] Comment on above: Performed By: #### C MP #### [facility] [address] [address] [address] Bharati Aguiar Creatinine [Mass/Vol] 0.85 mg/dL Normal 0.66-1.25 [facility] Comment on above: Performed By: #### C MP #### [facility] [address] [address] [address] Bharati Aguiar EGFR-AF CYMRO >60 Normal >=60 [facility] Comment on above: Performed By: #### C MP #### [facility] [address] [address] [address] Bharati Aguiar EGFR-NON AF CYMRO >60 Normal >=60 [facility] Comment on above: Performed By: #### C MP #### [facility] [address] [place] [address] Dr. Bharati Aguiar Globulin (S) [Mass/Vol] 3.4 g/dL Normal [facility] Comment on above: Performed By: #### C MP #### [facility] [address] [place] [address] Dr. Bharati Aguiar Glucose [Mass/Vol] 127 mg/dL Critically high 74-106 [facility] Comment on above: Performed By: #### C MP #### [facility] [address] [place] [address] Dr. Bharati Aguiar Potassium [Moles/Vol] 4.7 mmol/L Normal 3.4-5.0 [facility] Comment on above: Performed By: #### C MP #### [facility] [address] [place] [address] Dr. Bharati Aguiar Protein [Mass/Vol] 7.0 g/dL Normal 6.1-8.2 [facility] Comment on above: Performed By: #### C MP #### [facility] [address] [place] [address] Dr. Bharati Aguiar Sodium [Moles/Vol] 139 mmol/L Normal 137-145 [facility] Comment on above: Performed By: #### C MP #### [facility] [address] [place] [address] Dr. Bharati Aguiar Urea nitrogen [Mass/Vol] 18.0 mg/dL Normal 7.0-18.0 [facility] Comment on above: Performed By: #### C MP #### [facility] [address] [address] [address] Bharati Aguiar Urea nitrogen/Creatinin e [Mass ratio] 21.2 mg/mg Normal [facility] Comment on above: Performed By: #### C MP #### [facility] [address] [address] [address] Bharati Aguiar Vital Signs Date Time Vital Sign Value Performing Clinician Facility 05-09-2024 08:52-0400 Body mass index (BMI) [Ratio] 32.79 kg/m2 Marco A Esqueda MD Work Phone: [facility] 05-09-2024 08:52-0400 Body temperature 97.3 [degF] Marco A Esqueda MD Work Phone: [facility] 05-09-2024 08:52-0400 Body weight 92.1 kg Marco A Esqueda MD Work Phone: [facility] 05-09-2024 08:52-0400 Diastolic blood pressure 62 mm[Hg] Marco A Esqueda MD Work Phone: [facility] 05-09-2024 08:52-0400 Heart rate 62 /min Marco A Esuqeda MD Work Phone: [facility] 05-09-2024 08:52-0400 Respiratory rate 16 /min Marco A Esqueda MD Work Phone: [facility] 05-09-2024 08:52-0400 SaO2% (BldA) [Mass fraction] 99 % Marco A Esqueda MD Work Phone: [facility] 05-09-2024 08:52-0400 Systolic blood pressure 141 mm[Hg] Marco A Esqueda MD Work Phone: [facility] 04-19-2024 08:15-0400 Blood Pressure Location Anthony SCRUGGS [facility] 04-19-2024 08:15-0400 Body temperature 98.6 [degF] Anthony SCRUGGS [facility] 04-19-2024 08:15-0400 Diastolic blood pressure 69 mm[Hg] Anthonycindy SCRUGGS [facility] 04-19-2024 08:15-0400 Heart rate 64 /min Anthony SCRUGGS [facility] 04-19-2024 08:15-0400 Respiratory rate 17 /min Anthony SCRUGGS [facility] 04-19-2024 08:15-0400 Systolic blood pressure 129 mm[Hg] Anthony SCRUGGS [facility] 03-26-2024 08:37-0400 Body height 168.91 cm [facility] 03-26-2024 08:37-0400 Body mass index (BMI) [Ratio] 33 kg/m2 [facility] 03-26-2024 08:37-0400 Body weight 94.12 kg [facility] 03-26-2024 08:37-0400 Diastolic blood pressure 80 mm[Hg] [facility] 03-26-2024 08:37-0400 Heart rate 52 /min [facility] 03-26-2024 08:37-0400 Respiratory rate 12 /min [facility] 03-26-2024 08:37-0400 Systolic blood pressure 130 mm[Hg] [facility] 02-02-2024 11:06-0400 Body height 167.6 cm Lynne Alarcon APRN.GENER[employer]AN Work Phone: [facility] 02-02-2024 11:06-0400 Body mass index (BMI) [Ratio] 33.36 kg/m2 Lynne Alarcon APRN.[employer] [address] FOREMAN Work Phone: [facility] 02-02-2024 11:06-0400 Body temperature 97.3 [degF] Lynne Gross MARKET RESEARCH ANALYST.[employer]AN Work Phone: [facility] 02-02-2024 11:06-0400 Body weight 93.7 kg Lynne Gross MARKET RESEARCH ANALYST.[employer]AN Work Phone: [facility] 02-02-2024 11:06-0400 Diastolic blood pressure 54 mm[Hg] Lynne Gross MARKET RESEARCH ANALYST.[employer]AN Work Phone: [facility] 02-02-2024 11:06-0400 Heart rate 52 /min Lynne Gross MARKET RESEARCH ANALYST.[employer] [address]AN Work Phone: [facility] 02-02-2024 11:06-0400 Respiratory rate 16 /min Lynne Gross MARKET RESEARCH ANALYST.[employer] [address] FOR[employer]AN Work Phone: [facility] 02-02-2024 11:06-0400 SaO2% (BldA) [Mass fraction] 98 % Lynne Gross MARKET RESEARCH ANALYST.[employer] [address] FOR[employer]AN Work Phone: [facility] 02-02-2024 11:06-0400 Systolic blood pressure 137 mm[Hg] Lynne Gross MARKET RESEARCH ANALYST.[employer] [address]AN Work Phone: [facility] 11-23-2023 08:38-0400 Body height 168.91 cm [facility] 11-23-2023 08:38-0400 Body mass index (BMI) [Ratio] 33.2 kg/m2 [facility] 11-23-2023 08:38-0400 Body weight 94.8 kg [facility] 11-23-2023 08:38-0400 Diastolic blood pressure 69 mm[Hg] [facility] 11-23-2023 08:38-0400 Heart rate 48 /min [facility] 11-23-2023 08:38-0400 Respiratory rate 12 /min [facility] 11-23-2023 08:38-0400 Systolic blood pressure 130 mm[Hg] [facility] 11-02-2023 09:14-0400 Body height 167.6 cm Christo Howard MARKET RESEARCH ANALYST.GENERAL ROAD FOREMAN Work Phone: [facility] 11-02-2023 09:14-0400 Body temperature 97.81 [degF] Christo Howard APRN.GENERAL RO[address] FOREMAN Work Phone: [facility] 11-02-2023 09:14-0400 Body weight 92.9 kg Christo Howard APRN.GENERAL [address] FOREMAN Work Phone: [facility] 11-02-2023 09:14-0400 Diastolic blood pressure 44 mm[Hg] Christo Howard APRN.GENERAL [address] FOREMAN Work Phone: [facility] 11-02-2023 09:14-0400 Heart rate 56 /min Christo Howard APRN.GENERAL [address] FOREMAN Work Phone: [facility] 11-02-2023 09:14-0400 Respiratory rate 16 /min Christo Howard APRN.GENERAL [address] FOREMAN Work Phone: [facility] 11-02-2023 09:14-0400 SaO2% (BldA) [Mass fraction] 97 % Christo Howard APRN.GENERAL [address] FOREMAN Work Phone: [facility] 11-02-2023 09:14-0400 Systolic blood pressure 123 mm[Hg] Christo Howard APRN.GENERAL [address] FOREMAN Work Phone: [facility] 10-20-2023 09:05-0400 Blood Pressure Location Anthony SCRUGGS [facility] 10-20-2023 09:05-0400 Diastolic blood pressure 64 mm[Hg] Anthony SCRUGGS [facility] 10-20-2023 09:05-0400 Heart rate 53 /min Anthony SCRUGGS [facility] 10-20-2023 09:05-0400 Respiratory rate 16 /min Anthony SCRUGGS [facility] 10-20-2023 09:05-0400 Systolic blood pressure 110 mm[Hg] Anthony SCRUGGS [facility] 09-12-2023 14:13-0500 Body height 168.91 cm [facility] 09-12-2023 14:13-0500 Body mass index (BMI) [Ratio] 33.4 kg/m2 [facility] 09-12-2023 14:13-0500 Body weight 95.42 kg [facility] 09-12-2023 14:13-0500 Diastolic blood pressure 84 mm[Hg] [facility] 09-12-2023 14:13-0500 Heart rate 56 /min [facility] 09-12-2023 14:13-0500 Respiratory rate 12 /min [facility] 09-12-2023 14:13-0500 Systolic blood pressure 143 mm[Hg] [facility] 08-24-2023 08:30-0500 Body height 168.91 cm Jamar Ball Other [facility] [employer] Other 08-24-2023 08:30-0500 Body mass index (BMI) [Ratio] 34.08 kg/m2 Jamar Ball Other [facility] [employer] Other 08-24-2023 08:30-0500 Body weight 97.25 kg Jamar Ball Other [facility] [employer] Other 08-24-2023 08:30-0500 Diastolic blood pressure 81 mm[Hg] Jamar Ball Other [facility] [employer] Other 08-24-2023 08:30-0500 Respiratory rate 12 /min Jamar Ball Other [facility] [employer] Other 08-24-2023 08:30-0500 Systolic blood pressure 125 mm[Hg] Jamar Ball Other [facility] [employer] Other 05-30-2023 15:00-0500 Body height 168.91 cm Jamar Ball Other [employer] Other 05-30-2023 15:00-0500 Body mass index (BMI) [Ratio] 32.84 kg/m2 Jamar Ball Other [email or web address] Other 05-30-2023 15:00-0500 Body weight 93.71 kg Jamar Ball Other [email or web address] Other 05-30-2023 15:00-0500 Diastolic blood pressure 66 mm[Hg] Jamar Ball Other [email or web address] Other 05-30-2023 15:00-0500 Respiratory rate 12 /min Jamar Ball Other [email or web address] Other 05-30-2023 15:00-0500 Systolic blood pressure 141 mm[Hg] Jamar Ball Other [email or web address] Other 05-01-2023 09:45-0400 Body height 168.91 cm Jamar Ball Other [email or web address] Other 05-01-2023 09:45-0400 Body mass index (BMI) [Ratio] 32.14 kg/m2 Jamar Ball Other [email or web address] Other 05-01-2023 09:45-0400 Body weight 91.72 kg Jamar Ball Other [email or web address] Other 05-01-2023 09:45-0400 Diastolic blood pressure 62 mm[Hg] Jamar Ball Other [email or web address] Other 05-01-2023 09:45-0400 Respiratory rate 12 /min Jamar Ball Other [email or web address] Other 05-01-2023 09:45-0400 Systolic blood pressure 129 mm[Hg] Jamar Ball Other [employer] Other 04-27-2023 09:23-0400 Diastolic blood pressure 49 mm[Hg] Christo Howard APRN.GENERAL RO[address] FOREMAN Work Phone: [facility] 04-27-2023 09:23-0400 Heart rate 50 /min Christo Howard APRN.GENERAL RO[address] FOREMAN Work Phone: [facility] 04-27-2023 09:23-0400 Systolic blood pressure 141 mm[Hg] Christo Howard APRN.GENERAL [address] FOREMAN Work Phone: [facility] 04-27-2023 09:20-0400 Body height 167.6 cm Christo Howard APRN.GENERAL RO[address] FOREMAN Work Phone: [facility] 04-27-2023 09:20-0400 Body temperature 97 [degF] Christo Howard APRN.GENERAL [address] FOREMAN Work Phone: [facility] 04-27-2023 09:20-0400 Body weight 92.53 kg Christo Howard APRN.GENERAL RO[address] FOREMAN Work Phone: [facility] 04-27-2023 09:20-0400 Respiratory rate 16 /min Christo Howard APRN.GENERAL RO[address] FOREMAN Work Phone: [facility] 04-27-2023 09:20-0400 SaO2% (BldA) [Mass fraction] 100 % Christo Howard APRN.GENERAL RO[address] FOREMAN Work Phone: [facility] 04-17-2023 08:45-0400 Blood Pressure Location Anthony SCRUGGS [facility] 04-17-2023 08:45-0400 Diastolic blood pressure 68 mm[Hg] Anthony SCRUGGS [facility] 04-17-2023 08:45-0400 Heart rate 62 /min Anthony SCRUGGS [facility] 04-17-2023 08:45-0400 Respiratory rate 16 /min Anthony SCRUGGS [facility] 04-17-2023 08:45-0400 Systolic blood pressure 130 mm[Hg] Anthony SCRUGGS [facility] 04-05-2023 13:45-0400 Body height 168.91 cm Jamar Ball Other [email or web address] Other 04-05-2023 13:45-0400 Body mass index (BMI) [Ratio] 32.46 kg/m2 Jamar Ball Other [email or web address] Other 04-05-2023 13:45-0400 Body weight 92.63 kg Jamar Ball Other [email or web address] Other 04-05-2023 13:45-0400 Diastolic blood pressure 67 mm[Hg] Jamar Ball Other [email or web address] Other 04-05-2023 13:45-0400 Respiratory rate 12 /min Jamar Ball Other [email or web address] Other 04-05-2023 13:45-0400 Systolic blood pressure 109 mm[Hg] Jamar Ball Other [email or web address] Other 03-15-2023 08:45-0400 Body height 168.91 cm Jamar Ball Other [email or web address] Other 03-15-2023 08:45-0400 Body mass index (BMI) [Ratio] 32.81 kg/m2 Jamar Ball Other [email or web address] Other 03-15-2023 08:45-0400 Body weight 93.62 kg Jamar Ball Other [email or web address] Other 03-15-2023 08:45-0400 Diastolic blood pressure 69 mm[Hg] Jamar Ball Other [email or web address] Other 03-15-2023 08:45-0400 Respiratory rate 12 /min Jamar Ball Other [email or web address] Other 03-15-2023 08:45-0400 Systolic blood pressure 131 mm[Hg] Jamar Ball Other [email or web address] Other 02-02-2023 09:32-0400 Body height 167.6 cm Marco A Esqueda MD Work Phone: [facility] 02-02-2023 09:32-0400 Body temperature 97.2 [degF] Marco A Esqueda MD Work Phone: [facility] 02-02-2023 09:32-0400 Body weight 96.62 kg Marco A Esqueda MD Work Phone: [facility] 02-02-2023 09:32-0400 Diastolic blood pressure 43 mm[Hg] Marco A Esqueda MD Work Phone: [facility] 02-02-2023 09:32-0400 Heart rate 50 /min Marco A Esqueda MD Work Phone: [facility] 02-02-2023 09:32-0400 Respiratory rate 16 /min Marco A Esqueda MD Work Phone: [facility] 02-02-2023 09:32-0400 SaO2% (BldA) [Mass fraction] 97 % Marco A Esqueda MD Work Phone: [facility] 02-02-2023 09:32-0400 Systolic blood pressure 131 mm[Hg] Marco A Esqueda MD Work Phone: [facility] 11-10-2022 09:30-0400 Body height 167.6 cm Christo Howard APRN.GENERAL RO[address] FOREMAN Work Phone: [facility] 11-10-2022 09:30-0400 Body temperature 97.11 [degF] Christo Duke MARKET RESEARCH ANALYST.GENERAL RO[address] FOREMAN Work Phone: [facility] 11-10-2022 09:30-0400 Body weight 96.44 kg Christo Howard APRN.GENERAL RO[address] FOREMAN Work Phone: [facility] 11-10-2022 09:30-0400 Diastolic blood pressure 68 mm[Hg] Christo Howard MARKET RESEARCH ANALYST.GENERAL RO[address] FOREMAN Work Phone: [facility] 11-10-2022 09:30-0400 Heart rate 54 /min Christo Howard APRN.GENERAL [address] FOREMAN Work Phone: [facility] 11-10-2022 09:30-0400 Respiratory rate 16 /min Christo Howard APRN.GENERAL RO[address] FOREMAN Work Phone: [facility] 11-10-2022 09:30-0400 SaO2% (BldA) [Mass fraction] 98 % Christo Howard APRN.GENERAL RO[address] FOREMAN Work Phone: [facility] 11-10-2022 09:30-0400 Systolic blood pressure 134 mm[Hg] Christo Howard MARKET RESEARCH ANALYST.GENERAL RO[address] FOREMAN Work Phone: [facility] 09-16-2022 08:30-0500 Body height 168.91 cm Jamar Ball Other [email or web address] Other 09-16-2022 08:30-0500 Body mass index (BMI) [Ratio] 33.16 kg/m2 Jamar Ball Other [email or web address] Other 09-16-2022 08:30-0500 Body weight 94.62 kg Jamar Ball Other [email or web address] Other 09-16-2022 08:30-0500 Diastolic blood pressure 78 mm[Hg] Jamar Ball Other [email or web address] Other 09-16-2022 08:30-0500 Respiratory rate 12 /min Jamar Ball Other [email or web address] Other 09-16-2022 08:30-0500 Systolic blood pressure 116 mm[Hg] Jamar Ball Other [email or web address] Other 09-09-2022 08:30-0500 Body height 168.91 cm Jamar Ball Other [email or web address] Other 09-09-2022 08:30-0500 Body mass index (BMI) [Ratio] 33.45 kg/m2 Jamar Ball Other [email or web address] Other 09-09-2022 08:30-0500 Body weight 95.44 kg Jamar Ball Other [email or web address] Other 09-09-2022 08:30-0500 Diastolic blood pressure 76 mm[Hg] Jamar Ball Other [email or web address] Other 09-09-2022 08:30-0500 Respiratory rate 12 /min Jamar Ball Other [email or web address] Other 09-09-2022 08:30-0500 Systolic blood pressure 118 mm[Hg] Jamar Ball Other [email or web address] Other 09-09-2022 07:30-0500 Body height 168.91 cm Jamar Ball Other [email or web address] Other 09-09-2022 07:30-0500 Body mass index (BMI) [Ratio] 33.45 kg/m2 Jamar Ball Other [email or web address] Other 09-09-2022 07:30-0500 Body weight 95.44 kg Jamar Ball Other [email or web address] Other 09-09-2022 07:30-0500 Diastolic blood pressure 76 mm[Hg] Jamar Ball Other [email or web address] Other 09-09-2022 07:30-0500 Respiratory rate 12 /min Jamar Ball Other [email or web address] Other 09-09-2022 07:30-0500 Systolic blood pressure 118 mm[Hg] Jamar Ball Other [email or web address] Other 08-11-2022 09:24-0500 Body height 167.6 cm Marco A Esqueda MD Work Phone: [facility] 08-11-2022 09:24-0500 Body temperature 97 [degF] Marco A Esqueda MD Work Phone: [facility] 08-11-2022 09:24-0500 Body weight 96.44 kg Marco A Esqueda MD Work Phone: [facility] 08-11-2022 09:24-0500 Diastolic blood pressure 56 mm[Hg] Marco A Esqueda MD Work Phone: [facility] 08-11-2022 09:24-0500 Heart rate 53 /min Marco A Esqueda MD Work Phone: [facility] 08-11-2022 09:24-0500 Respiratory rate 16 /min Marco A Esqueda MD Work Phone: [facility] 08-11-2022 09:24-0500 SaO2% (BldA) [Mass fraction] 97 % Marco A Esqueda MD Work Phone: [facility] 08-11-2022 09:24-0500 Systolic blood pressure 129 mm[Hg] Marco A Esqueda MD Work Phone: [facility] 07-21-2022 15:30-0500 Body height 168.91 cm Jamar Ball Other [email or web address] Other 07-21-2022 15:30-0500 Body mass index (BMI) [Ratio] 34.18 kg/m2 Jamar Ball Other [email or web address] Other 07-21-2022 15:30-0500 Body weight 97.52 kg Jamar Ball Other [facility] [employer] Other 07-21-2022 15:30-0500 Diastolic blood pressure 76 mm[Hg] Jamar Ball Other [facility] [employer] Other 07-21-2022 15:30-0500 Respiratory rate 16 /min Jamar Ball Other [facility] [employer] Other 07-21-2022 15:30-0500 Systolic blood pressure 118 mm[Hg] Jamar Ball Other [facility] [employer] Other 05-13-2022 09:07-0400 Blood Pressure Location Anthony SCRUGGS [facility] 05-13-2022 09:07-0400 Diastolic blood pressure 72 mm[Hg] Anthony SCRUGGS [facility] 05-13-2022 09:07-0400 Heart rate 55 /min Anthony SCRUGGS [facility] 05-13-2022 09:07-0400 Respiratory rate 16 /min Anthony SCRUGGS [facility] 05-13-2022 09:07-0400 Systolic blood pressure 108 mm[Hg] Anthony SCRUGGS [facility] 05-12-2022 10:41-0400 Body temperature 97.81 [degF] LUAN Khan MD Work Phone: [facility] 05-12-2022 10:41-0400 Body weight 95.07 kg LUAN Khan MD Work Phone: [facility] 05-12-2022 10:41-0400 Diastolic blood pressure 42 mm[Hg] LUAN Khan MD Work Phone: [facility] 05-12-2022 10:41-0400 Heart rate 51 /min LUAN Khan MD Work Phone: [facility] 05-12-2022 10:41-0400 Respiratory rate 18 /min LUAN Khan MD Work Phone: [facility] 05-12-2022 10:41-0400 SaO2% (BldA) [Mass fraction] 99 % LUAN Khan MD Work Phone: [facility] 05-12-2022 10:41-0400 Systolic blood pressure 134 mm[Hg] LUAN Khan MD Work Phone: [facility] 02-17-2022 09:36-0400 Body height 167.6 cm Marco A Esqueda MD Work Phone: [facility] 02-17-2022 09:36-0400 Body temperature 97.9 [degF] Marco A Esqueda MD Work Phone: [facility] 02-17-2022 09:36-0400 Body weight 97.07 kg Marco A Esqueda MD Work Phone: [facility] 02-17-2022 09:36-0400 Diastolic blood pressure 58 mm[Hg] Marco A Esqueda MD Work Phone: [facility] 02-17-2022 09:36-0400 Heart rate 63 /min Marco A Esqueda MD Work Phone: [facility] 02-17-2022 09:36-0400 Respiratory rate 16 /min Marco A Esqueda MD Work Phone: [facility] 02-17-2022 09:36-0400 SaO2% (BldA) [Mass fraction] 99 % Marco A Esqueda MD Work Phone: [facility] 02-17-2022 09:36-0400 Systolic blood pressure 133 mm[Hg] Marco A Esqueda MD Work Phone: [facility] 11-18-2021 10:50-0400 Body temperature 97.7 [degF] [facility] [place] Work Phone: [facility] 11-18-2021 10:50-0400 Diastolic blood pressure 63 mm[Hg] [facility] [place] Work Phone: [facility] 11-18-2021 10:50-0400 Heart rate 60 /min [facility] [place] Work Phone: [facility] 11-18-2021 10:50-0400 Respiratory rate 18 /min [facility] [place] Work Phone: [facility] 11-18-2021 10:50-0400 SaO2% (BldA) [Mass fraction] 95 % [facility] [place] Work Phone: [facility] 11-18-2021 10:50-0400 Systolic blood pressure 139 mm[Hg] [facility] [place] Work Phone: [facility] 11-11-2021 13:58-0400 Body height 167.6 cm Marco A Esqueda MD Work Phone: [facility] 11-11-2021 13:58-0400 Body temperature 97.39 [degF] Marco A Esqueda MD Work Phone: [facility] 11-11-2021 13:58-0400 Body weight 98.97 kg Marco A Esqueda MD Work Phone: [facility] 11-11-2021 13:58-0400 Diastolic blood pressure 54 mm[Hg] Marco A Esqueda MD Work Phone: [facility] 11-11-2021 13:58-0400 Heart rate 68 /min Marco A Esqueda MD Work Phone: [facility] 11-11-2021 13:58-0400 Respiratory rate 16 /min Marco A Esqueda MD Work Phone: [facility] 11-11-2021 13:58-0400 SaO2% (BldA) [Mass fraction] 98 % Marco A Esqueda MD Work Phone: [facility] 11-11-2021 13:58-0400 Systolic blood pressure 130 mm[Hg] Marco A Esqueda MD Work Phone: [facility] 11-08-2021 13:03-0400 Blood Pressure Location Anthony SCRUGGS [facility] 11-08-2021 13:03-0400 Diastolic blood pressure 60 mm[Hg] Anthony [facility]UGGS [facility] 11-08-2021 13:03-0400 Heart rate 61 /min Anthony [facility]CRUGGS [facility] 11-08-2021 13:03-0400 Systolic blood pressure 135 mm[Hg] Anthony SCRUGGS [facility] Encounters Encounter Date Encounter Type Care Provider Facility Start: 10-07-2024 ambulatory Anthony Bloomi ty:NORA Roberts Start: 08-01-2024 End: 08-01-2024 ambulatory JAMAR FALL Facility:[facility] Start: 05-09-2024 End: 05-09-2024 ambulatory [facility] [place] Work Phone: Hematology/Oncology Comment on above: Malignant neoplasm o f prostate (HCC) (Primary Dx) Start: 05-09-2024 End: 05-09-2024 Patient encounter procedure Marco A Esqueda MD Work Phone: Hematology/Oncology Start: 05-08-2024 End: 05-08-2024 Refill Aida Luo [facility] Work Phone: [facility] Comment on above: Refill Request Start: 05-03-2024 End: 05-03-2024 ambulatory JAMAR FALL Facility:[facility] Start: 04-19-2024 End: 04-19-2024 ambulatory Anthony [facility]UGGS [facility] Start: 04-19-2024 End: 04-19-2024 Patient encounter procedure Anthony SCRUGGS [facility] Start: 04-01-2024 End: 04-01-2024 Refill Marco A Esqueda MD Work Phone: Hematology/Oncology Comment on above: Refill Request Start: 04-01-2024 End: 04-01-2024 Refill Aida Luo [facility] Work Phone: [facility] Comment on above: Refill Request Start: 03-29-2024 Encounter for preprocedural cardiovascular examination [facility] Start: 03-29-2024 End: 04-01-2024 ambulatory [facility] Start: 03-29-2024 End: 04-01-2024 Encounter for other preprocedural examination [facility] Start: 03-29-2024 End: 04-01-2024 Encounter for preprocedural cardiovascular examination [facility] Start: 03-26-2024 End: 03-26-2024 ambulatory [facility] Work Phone: Start: 03-26-2024 End: 03-26-2024 Patient encounter procedure [facility] Work Phone: Start: 02-29-2024 End: 02-29-2024 ambulatory ALEXIA FRANCO Not Available Start: 02-26-2024 End: 02-26-2024 ambulatory LONG BOO Not Available Start: 02-02-2024 End: 02-02-2024 ambulatory [facility] Krishnan Work Phone: Hematology/Oncology Comment on above: Malignant neoplasm o f prostate (HCC) (Primary Dx) Start: 02-02-2024 End: 02-02-2024 Patient encounter procedure Lynne Alarcon APRN.GENERAL RO[address] FOREMAN Work Phone: Hematology/Oncology Comment on above: Malignant neoplasm o f prostate (HCC) (Primary Dx) Start: 01-25-2024 End: 01-25-2024 ambulatory JAMAR FALL Facility:[facility] Start: 01-25-2024 Non-patient / Non-visit [facility] Work Phone: Start: 11-23-2023 End: 11-23-2023 ambulatory [facility] Work Phone: Start: 11-23-2023 End: 11-23-2023 Patient encounter procedure [facility] Work Phone: Start: 11-02-2023 End: 11-02-2023 ambulatory [facility] [place] Work Phone: Hematology/Oncology Comment on above: Malignant neoplasm o f prostate (HCC) (Primary Dx) Malignant neoplasm o f prostate (HCC) (Primary Dx); Essential hypertension; 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, unspecified vessel or lesion type; Type 2 diabetes mellitus without complication, without long-term current use of insulin (HCC); Lesion of skin of right ear; Abdominal discomfort Start: 11-02-2023 End: 11-02-2023 Patient encounter procedure Christo Howard APRN.GENERAL RO[address] FOREMAN Work Phone: [facility] Start: 10-30-2023 End: 10-30-2023 ambulatory JAMAR FALL Facility:[facility] Start: 10-30-2023 Non-patient / Non-visit [facility] Work Phone: Start: 10-20-2023 End: 10-20-2023 ambulatory Anthony SCRUGGS Facility:[facility] Start: 10-20-2023 End: 10-20-2023 Patient encounter procedure Anthony SCRUGGS [facility] Start: 10-09-2023 Non-patient / Non-visit [facility] Work Phone: Start: 09-28-2023 End: 09-28-2023 ambulatory PABLO CHRISTINA Not Available Start: 09-12-2023 End: 09-12-2023 Patient encounter procedure [facility] Work Phone: Start: 09-06-2023 Non-patient / Non-visit [facility] Work Phone: Start: 08-28-2023 Bamboo flowsheet [address] Iraj [address] MARKET RESEARCH ANALYST-GENERAL ROAD FOREMAN Work Phone: [facility] Start: 08-28-2023 Bamboo flowsheet Long A Fel ter MARKET RESEARCH ANALYST-GENERAL ROAD FOREMAN Work Phone: [facility] Start: 08-28-2023 End: 08-28-2023 Patient encounter procedure Long Boo MARKET RESEARCH ANALYST-GENER[employer] ROAD FOREMAN Work Phone: [facility] Comment on above: Neoplasm of unspecif ied behavior of bone, soft tissue, and skin; Actinic keratosis Start: 08-28-2023 End: 08-28-2023 ambulatory LONG BOO Not Available Start: 08-24-2023 End: 08-24-2023 ambulatory Jamar Fall Other [email or web address] Other Start: 08-24-2023 Patient encounter procedure Jamar Fall [facility] Start: 08-04-2023 End: 08-04-2023 ambulatory Jamar Fall Other [email or web address] Other Start: 08-04-2023 Telephone encounter Jamar EDMONDS Count Includes [facility] Start: 06-22-2023 End: 06-22-2023 ambulatory EHAB [facility] Start: 06-05-2023 Telephone encounter Jamar EDMONDS G [facility] Start: 06-05-2023 End: 06-05-2023 ambulatory EMELINA LOUIS [facility] [employer] Other Start: 05-30-2023 End: 05-30-2023 ambulatory Jamar Fall Other [email or web address] Other Start: 05-30-2023 Office outpatient vi sit 15 minutes Jamar Fall [facility] Start: 05-01-2023 End: 05-01-2023 ambulatory Jamar Fall Other [email or web address] Other Start: 05-01-2023 Office outpatient vi sit 15 minutes Jamar Ball [facility] Start: 04-27-2023 Telephone encounter Jamar Fall [facility] Start: 04-27-2023 End: 04-27-2023 ambulatory [facility] [place] Work Phone: Hematology/Oncology Comment on above: Malignant neoplasm o f prostate (HCC) (Primary Dx) Malignant neoplasm o f prostate (HCC) (Primary Dx); 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, unspecified vessel or lesion type; Essential hypertension; Type 2 diabetes mellitus without complication, without long-term current use of insulin (HCC) Start: 04-27-2023 End: 04-27-2023 Patient encounter procedure Christo Howard APRN.CNP Work Phone: [facility] Start: 04-25-2023 End: 04-25-2023 ambulatory Jamar Fall Other [email or web address] Other Start: 04-25-2023 Telephone encounter Jamar Fall [facility] Start: 04-18-2023 End: 04-18-2023 ambulatory Jamar Fall Other [email or web address] Other Start: 04-18-2023 Telephone encounter Jamar Ball [facility] Start: 04-17-2023 End: 04-17-2023 Patient encounter procedure Anthony SCRUGGS [facility] Start: 04-12-2023 End: 04-12-2023 ambulatory Jamar Fall Other [email or web address] Other Start: 04-12-2023 Telephone encounter Jamar Ball [facility] Start: 04-06-2023 End: 04-06-2023 ambulatory Jamar Fall Other [email or web address] Other Start: 04-06-2023 Telephone encounter Jamar EDMONDS [facility] Start: 04-05-2023 End: 04-05-2023 ambulatory Jamar Fall Other [email or web address] Other Start: 04-05-2023 Office outpatient vi sit 15 minutes Jamar Fall [facility] Start: 04-05-2023 Telephone encounter Jamar EDMONDS [facility] Start: 03-15-2023 End: 03-15-2023 ambulatory Jamar Fall Other [email or web address] Other Start: 03-15-2023 Office outpatient vi sit 25 minutes Jamar Fall [facility] Start: 02-05-2023 End: 02-05-2023 ambulatory Jamar Fall Other [email or web address] Other Start: 02-05-2023 Telephone encounter Jamar EDMONDS [facility] Start: 02-02-2023 End: 02-02-2023 ambulatory [facility] Work Phone: Hematology/Oncology Comment on above: Malignant neoplasm o f prostate (HCC) (Primary Dx) Start: 02-02-2023 End: 02-02-2023 Patient encounter procedure Marco A Esqueda MD Work Phone: [facility] [employer] [employer] Start: 11-15-2022 End: 11-15-2022 ambulatory Jamar Fall Other [email or web address] Other Start: 11-15-2022 Encounter by Tyros Jamar Fall [facility] Start: 11-11-2022 End: 11-11-2022 ambulatory Jamar Fall Other [email or web address] Other Start: 11-11-2022 Encounter by Tyros Jamar Fall [facility] Start: 11-10-2022 End: 11-10-2022 ambulatory [facility] Work Phone: Hematology/Oncology Comment on above: Malignant neoplasm o f prostate (HCC) (Primary Dx) Malignant neoplasm o f prostate (HCC) (Primary Dx); 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 Facility: Start: 09-16-2022 End: 09-16-2022 ambulatory Jamar Fall Other [email or web address] Other Start: 09-16-2022 Office outpatient vi sit 15 minutes Jamar Fall [facility] Start: 09-09-2022 End: 09-09-2022 ambulatory Jamar Fall Other [email or web address] Other Start: 09-09-2022 Patient encounter procedure Jamar Fall [facility] Start: 09-05-2022 End: 09-06-[address] DE LISTED REQUEST Facility: Start: 08-11-2022 End: 08-11-2022 ambulatory [facility] [place] Work Phone: Hematology/Oncology Comment on above: Malignant neoplasm o f prostate (HCC) (Primary Dx) Malignant neoplasm o f prostate (HCC) (Primary Dx); Bone metastasis (HCC); 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, unspecified vessel or lesion type; Essential hypertension; Type 2 diabetes mellitus without complication, without long-term current use of insulin (HCC) Start: 08-11-2022 End: 08-11-2022 Patient encounter procedure Marco A Esqueda MD Work Phone: [facility] [employer] Start: 07-21-2022 End: 07-22-[address] JAMAR FALL [email or web address] Other Start: 07-21-2022 Office outpatient vi sit 15 minutes Jamar Fall [facility] Start: 07-21-2022 Patient encounter procedure Jamar Fall [facility] Start: 07-21-2022 Telephone encounter Jamar Fall [facility] Start: 05-27-2022 End: 05-28-2022 ambulatory NONE LISTED REQUEST Facility: Start: 05-13-2022 End: 05-13-2022 Patient encounter procedure Anthony SCRUGGS [facility] Start: 05-12-2022 End: 05-12-2022 Patient encounter [...] encounter procedure Anthony SCRUGGS [facility] Start: 11-05-2021 End: 11-06-[address] MARCO A ESQUEDA Facility: Start: 11-04-2021 ambulatory Clementine lee RN Work Phone: Hematology/Oncology Comment on above: Oral Anti-cancer Age nt Education (Enzalutamide) Start: 11-04-2021 Telephone encounter Aida Coles [facility] Work Phone: Hematology/Oncology Comment on above: Medication [...] 07-22-2021 Adult health examination Bam Fall Other [email or web address] Other Procedures Date Procedure Procedure Detail Performing Clinician Start: 08-28-2023 CRYOTHERAPY SKIN LESION Long Iraj Boo MARK[employer] RESEARCH ANALYST-GENER[employer] ROAD [employer]EMAN Work Phone: Start: 08-28-2023 SKIN / NAIL BIOPSY Windy mira Iraj Boo MARKET RESEARCH ANALYST-GENER[employer] ROAD FOREMAN Work Phone: Start: 07-17-2023 Decompression of med anthony nerve Anthony SCRUGGS Start: 10-25-[address] JESE FALL Comment on above: Performed By: #### P SAD #### [facility] [address] [place], [place] [address] Dr. Bharati Aguiar Start: 05-05-[address] JESE FALL Comment on above: Performed By: #### P SAD ####[facility] [id number] [place], [place] [address]UzDr. Bharati Aguiar Start: 02-16-2022 Adult depression scr [...] guidance Anthony SCRUGGS Start: 01-09-2007 Urodynamic studies Patr roshni SCRUGGS Start: 03-27-2006 Cystoscopy Anthony CHAVEZ Start: 08-26-2005 Cystoscopy Anthony CHAVEZ Start: 09-02-2002 Cystoscopy Anthony CHAVEZ Appendectomy Anthonycindy SCRUGGS Colonoscopy Anthony SCRUGGS Depression screening Reddy Fall Other Plan of Treatment Date Care Activity Detail Author Start: 04-25-2034 Urine microalbumin profile DTaP,Tdap,Td Vaccine (6 - Td or Tdap) [facility] Start: 05-03-2027 Diabetes Screening Diabetes Screening [facility] Start: 01-24-2027 Diabetes Screening Diabetes Screening [facility] Start: 10-29-2026 Diabetes Screening Diabetes Screening [facility] Start: 04-24-2026 Diabetes Screening Diabetes Screening [facility] Start: 02-02-2026 DIABETES SCREEN DIABETES SCREEN [facility] Start: 11-10-2025 DIABETES SCREEN DIABETES SCREEN [facility] Start: 08-11-2025 DIABETES SCREEN DIABETES SCREEN [facility] Start: 05-12-2025 DIABETES SCREEN DIABETES SCREEN [facility] Start: 02-17-2025 DIABETES SCREEN DIABETES SCREEN [facility] Start: 11-11-2024 DIABETES SCREEN DIABETES SCREEN [facility] Start: 08-08-2024 End: 08-08-2024 Follow-up encounter Hematology/Oncology Comment on above: 3 month lab follow up with xgeva inj Start: 08-01-2024 End: 08-01-2024 Patient encounter procedure 08/01/2024 9:00 AM EST Office Visit [facility] [address] [place] [address] 3 month labs [facility] Comment on above: 3 month labs Start: 05-09-2024 End: 05-09-2024 Follow-up encounter Hematology/Oncology Comment on above: 3 month lab follow up with xgeva inj Start: 05-07-2024 End: 05-07-2024 Patient encounter procedure 05/07/2024 9:00 AM EDT Office Visit [facility] [address] [address] 3 month lab follow up with xgeva inj [facility] Comment on above: 3 month lab follow up with xgeva inj Start: 05-03-2024 End: 05-03-2024 Patient encounter procedure 05/03/2024 9:00 AM EDT Office Visit [facility] [address] [address] 3 month lab follow up with xgeva inj [facility] Comment on above: 3 month lab follow up with xgeva inj Start: 04-29-2024 End: 07-29-2024 CBC W Auto Differential panel - Blood COMPLETE BLOOD COUNT AND DIFFERENTIAL Lab Routine Malignant neoplasm of prostate (HCC) Expected: 04/29/2024, Expires: 07/29/2024 [facility] Work Phone: Comment on above: Expected: 04/29/2024, Expires: Start: 04-29-2024 End: 07-29-2024 Comprehensive metabolic 2000 panel - Serum or Plasma COMPREHENSIVE METABOLIC PANEL Lab Routine Malignant neoplasm of prostate (HCC) Expected: 04/29/2024, Expires: 07/29/2024 [facility] Comment on above: Expected: 04/29/2024, Expires: Start: 04-29-2024 End: 07-29-2024 Prostate specific Ag [Mass/volume] in Serum or Plasma PROSTATE-SPECIFIC ANTIGEN DIAGNOSTIC Lab Routine Malignant neoplasm of prostate (HCC) Expected: 04/29/2024, Expires: 07/29/2024 [facility] Comment on above: Expected: 04/29/2024, Expires: 5 Start: 03-17-2024 Covid-19 Vaccine () Covid-19 Vaccine () [facility] Start: 03-17-2024 Influenza [facility] Start: 02-26-2024 End: 02-26-2024 Patient encounter procedure 02/26/2024 10:10 AM EDT Office Visit [facility] [address] [place] [address] Long Boo APRN-GENERAL ROAD FOREMAN [address] [place] [address] [facility] Start: 11-03-2023 End: 02-02-2024 CBC W Auto Differential panel - Blood COMPLETE BLOOD COUNT AND DIFFERENTIAL Lab Routine Malignant neoplasm of prostate (HCC) Essential hypertension 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, unspecified vessel or lesion type Type 2 diabetes mellitus without complication, without long-term current use of insulin (HCC) Lesion of skin of right ear Abdominal discomfort Expected: 11/03/2023, Expires: 02/02/2024 [facility] Work Phone: Comment on above: Expected: 11/03/2023, Expires: Start: 11-03-2023 End: 02-02-2024 Comprehensive metabolic 2000 panel - Serum or Plasma COMPREHENSIVE METABOLIC PANEL Lab Routine Malignant neoplasm of prostate (HCC) Essential hypertension 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, unspecified vessel or lesion type Type 2 diabetes mellitus without complication, without long-term current use of insulin (HCC) Lesion of skin of right ear Abdominal discomfort Expected: 11/03/2023, Expires: 02/02/2024 [facility] Work Phone: Comment on above: Expected: 11/03/2023, Expires: Start: 11-03-2023 End: 02-02-2024 Prostate specific Ag [Mass/volume] in Serum or Plasma PROSTATE-SPECIFIC ANTIGEN DIAGNOSTIC Lab Routine Malignant neoplasm of prostate (HCC) Essential hypertension 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, unspecified vessel or lesion type Type 2 diabetes mellitus without complication, without long-term current use of insulin (HCC) Lesion of skin of right ear Abdominal discomfort Expected: 11/03/2023, Expires: 02/02/2024 [facility] Work Phone: Comment on above: Expected: 11/03/2023, Expires: Start: 08-28-2023 End: 08-28-2023 Patient encounter procedure 08/28/2023 11:25 AM EST Office Visit [facility] [address] [place] [id number] Long Boo APRN-GENERAL ROAD FOREMAN [address] [place] [address] Arrived [facility] Comment on above: Arrived Start: 07-28-2023 End: 09-27-2023 CBC W Auto Differential panel - Blood CBC + DIFF Lab Routine Malignant neoplasm of prostate (HCC) 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, unspecified vessel or lesion type Essential hypertension Type 2 diabetes mellitus without complication, without long-term current use of insulin (HCC) Expected: 07/28/2023, Expires: 09/27/2023 [facility] Work Phone: Comment on above: Expected: 07/28/2023, Expires: Start: 07-28-2023 End: 09-27-2023 Comprehensive metabolic 2000 panel - Serum or Plasma COMP METABOLIC PANEL Lab Routine Malignant neoplasm of prostate (HCC) 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, unspecified vessel or lesion type Essential hypertension Type 2 diabetes mellitus without complication, without long-term current use of insulin (HCC) Expected: 07/28/2023, Expires: 09/27/2023 [facility] Work Phone: Comment on above: Expected: 07/28/2023, Expires: Start: 07-28-2023 End: 09-27-2023 Prostate specific Ag [Mass/volume] in Serum or Plasma PSA/PROSTSPECAG DIAG Lab Routine Malignant neoplasm of prostate (HCC) 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, unspecified vessel or lesion type Essential hypertension Type 2 diabetes mellitus without complication, without long-term current use of insulin (HCC) Expected: 07/28/2023, Expires: 09/27/2023 [facility] Work Phone: Comment on above: Expected: 07/28/2023, Expires: Start: 07-17-2023 Advance Directive Discussion Advance Directive Discussion [facility] Start: 07-17-2023 Behavioral Health Screening Behavioral Health Screening [facility] Start: 06-19-2023 Urine microalbumin profile [facility] Start: 05-03-2023 End: 07-03-2023 Basic metabolic 2000 panel - Serum or Plasma BASIC METABOLIC PNL Lab Routine Malignant neoplasm of prostate (HCC) Expected: 05/03/2023 (Approximate), Expires: 07/03/2023 [facility] Work Phone: Comment on above: Expected: 05/03/2023 (Approximate), Expi res: 07/03/2023 Start: 05-03-2023 End: 07-03-2023 CBC W Auto Differential panel - Blood CBC + DIFF Lab Routine Malignant neoplasm of prostate (HCC) Expected: 05/03/2023 (Approximate), Expires: 07/03/2023 [facility] Work Phone: Comment on above: Expected: 05/03/2023 (Approximate), Expi res: 07/03/2023 Start: 05-03-2023 End: 07-03-2023 Prostate specific Ag [Mass/volume] in Serum or Plasma PSA/PROSTSPECAG DIAG Lab Routine Malignant neoplasm of prostate (HCC) Expected: 05/03/2023 (Approximate), Expires: 07/03/2023 [facility] Work Phone: Comment on above: Expected: 05/03/2023 (Approximate), Expi res: 07/03/2023 Start: 05-03-2023 End: 07-03-2023 Testosterone [Mass/volume] in Serum or Plasma TESTOSTERONE TOTAL Lab Routine Malignant neoplasm of prostate (HCC) Expected: 05/03/2023 (Approximate), Expires: 07/03/2023 [facility] Work Phone: Comment on above: Expected: 05/03/2023 (Approximate), Expi res: 07/03/2023 Start: 03-17-2023 Covid-19 Vaccine () Covid-19 Vaccine () [facility] Start: 03-17-2023 Influenza vaccination [facility] Start: 02-16-2023 Adult depression screening assessment DEPRESSION SCREENING [facility] Start: 02-09-2023 End: 04-11-2023 CBC W Auto Differential panel - Blood CBC + DIFF Lab Routine Malignant neoplasm of prostate (HCC) 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, unspecified vessel or lesion type Essential hypertension Type 2 diabetes mellitus without complication, without long-term current use of insulin (HCC) Expected: 02/09/2023, Expires: 04/11/2023 [facility] Work Phone: Comment on above: Expected: 02/09/2023, Expires: Start: 02-09-2023 End: 04-11-2023 Comprehensive metabolic 2000 panel - Serum or Plasma COMP METABOLIC PANEL Lab Routine Malignant neoplasm of prostate (HCC) 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, unspecified vessel or lesion type Essential hypertension Type 2 diabetes mellitus without complication, without long-term current use of insulin (HCC) Expected: 02/09/2023, Expires: 04/11/2023 [facility] Work Phone: Comment on above: Expected: 02/09/2023, Expires: Start: 02-09-2023 End: 04-11-2023 Prostate specific Ag [Mass/volume] in Serum or Plasma PSA/PROSTSPECAG DIAG Lab Routine Malignant neoplasm of prostate (HCC) 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, unspecified vessel or lesion type Essential hypertension Type 2 diabetes mellitus without complication, without long-term current use of insulin (HCC) Expected: 02/09/2023, Expires: 04/11/2023 [facility] Work Phone: Comment on above: Expected: 02/09/2023, Expires: 3 Start: 11-10-2022 Adult depression screening assessment DEPRESSION SCREENING [facility] Start: 08-22-2022 COVID-19 VACCINE (6 - Moderna series) COVID-19 VACCINE (6 - Moderna series) [facility] Start: 07-17-2022 ADVANCE DIRECTIVE DISCUSSION ADVANCE DIRECTIVE DISCUSSION [facility] Start: 07-17-2022 DEPRESSION ASSESSMENT DEPRESSION ASSESSMENT [facility] Start: 05-03-2022 Adult depression screening assessment DEPRESSION SCREENING [facility] Start: 05-03-2022 End: 07-03-2022 CBC W Auto Differential panel - Blood CBC + DIFF Lab Routine Malignant neoplasm of prostate (HCC) Expected: 05/03/2022, Expires: 07/03/2022 [facility] Work Phone: Comment on above: Expected: 05/03/2022, Expires: 2 Start: 05-03-2022 End: 07-03-2022 Comprehensive metabolic 2000 panel - Serum or Plasma COMP METABOLIC PANEL Lab Routine Malignant neoplasm of prostate (HCC) Expected: 05/03/2022, Expires: 07/03/2022 [facility] Work Phone: Comment on above: Expected: 05/03/2022, Expires: 2 Start: 05-03-2022 End: 07-03-2022 Prostate specific Ag [Mass/volume] in Serum or Plasma PSA/PROSTSPECAG DIAG Lab Routine Malignant neoplasm of prostate (HCC) Expected: 05/03/2022, Expires: 07/03/2022 [facility] Work Phone: Comment on above: Expected: 05/03/2022, Expires: 2 Start: 03-17-2022 Influenza vaccination [facility] Start: 11-02-2021 End: 01-02-2022 CBC W Auto Differential panel - Blood CBC + DIFF Lab Routine Malignant neoplasm of prostate (HCC) Expected: 11/02/2021, Expires: 01/02/2022 [facility] Work Phone: Comment on above: Expected: 11/02/2021, Expires: 2 Start: 11-02-2021 End: 01-02-2022 Comprehensive metabolic 2000 panel - Serum or Plasma COMP METABOLIC PANEL Lab Routine Malignant neoplasm of prostate (HCC) Expected: 11/02/2021, Expires: 01/02/2022 [facility] Work Phone: Comment on above: Expected: 11/02/2021, Expires: 2 Start: 09-14-2021 COVID-19 VACCINE (5 - Booster) COVID-19 VACCINE (5 - Booster) [facility] Start: 08-17-2021 COVID-19 VACCINE (4 - Booster for Moderna series) COVID-19 VACCINE (4 - Booster for Moderna series) [facility] Start: 07-17-2021 ADVANCE DIRECTIVE DISCUSSION ADVANCE DIRECTIVE DISCUSSION [facility] Start: 07-17-2021 DEPRESSION ASSESSMENT DEPRESSION ASSESSMENT [facility] Start: 02-22-2021 COVID-19 VACCINE (3 - Booster for Moderna series) COVID-19 VACCINE (3 - Booster for Moderna series) [facility] Start: 06-07-2015 PNEUMOVAX AGE 65 AND OVER WITH 5YR LOOKBACK (#1) PNEUMOVAX AGE 65 AND OVER WITH 5YR LOOKBACK (#1) [facility] Start: 06-20-2013 Urine microalbumin profile DTAP,TDAP,TD (1 - Tdap) [facility] Start: 08-22-2012 SHINGRIX VACCINE (2 of 3) SHINGRIX VACCINE (2 of 3) [facility] Start: 2006 RSV Vaccine (1 - 1-dose 60+ series) RSV Vaccine (1 - 1-dose 60+ series) [facility] Start: 02-14-1996 SHINGRIX VACCINE (1 of 2) SHINGRIX VACCINE (1 of 2) [facility] Start: 1991 COLOGUARD (FIT-DNA) COLOGUARD (FIT-DNA) [facility] Start: 1991 Colonoscopy COLONOSCOPY [facility] Start: 1991 COLORECTAL CANCER SCREENING COLORECTAL CANCER SCREENING [facility] Start: [address] COLONOGRAPHY [facility] Start: 1991 DIABETES SCREEN DIABETES SCREEN [facility] Start: 1991 FECAL OCCULT BLOOD FECAL OCCULT BLOOD [facility] Start: 1991 SIGMOIDOSCOPY SIGMOIDOSCOPY [facility] Start: 1981 LIPID SCREEN LIPID SCREEN [facility] Start: 02-14-1964 Anxiety Screening Anxiety Screening [facility] Start: 02-14-1964 Depression Screening Depression Screening [facility] Start: 02-14-1964 HEPATITIS C SCREENING HEPATITIS C SCREENING [facility] Start: 02-14-1964 Hepatitis C screening Hepatitis C Screening [facility] Dermatopathology exam Dermatopat hology exam Pathology and Cytology Timed Neoplasm of unspecified behavior of bone, soft tissue, and skin Release Upon Ordering for 1 Occurrences starting 08/28/2023 [facility] Work Phone: Comment on above: Release Upon Ordering for 1 Occurrences starting 08/28/2023 MR Cervical spine WO contrast [facility] US Extremity [facility] Immunizations Immunization Date Immunization Notes Care Provider Fa cilisaúl 03-26-2024 influenza, high dose seasonal, preservative-free [facility] 05-01-2023 influenza virus vaccine, unspecified formulation [facility] 05-01-2023 influenza, high dose seasonal, preservative-free Jamar Fall Other [facility] 04-28-2022 influenza nasal, unspecified formulation Lab/[facility] Work Phone: [facility] 04-28-2022 influenza, high-dose , quadrivalent vaccine (FLUZONE HIGH DOSE QUADRIVALENT) [facility] Work Phone: [facility] 04-28-2022 influenza, high dose seasonal, preservative-free Jamar Fall Other [facility] 04-28-2022 influenza virus vaccine, unspecified formulation [facility] Work Phone: [facility] 04-21-2022 COVID-19 booster vaccine, age 12+ yr, bivalent (MODERNA) [facility] Work Phone: [facility] Comment on above: Result Comment: 2023: [id number] 01-21-2022 COVID-19 Vaccine Moderna - Documentation Purposes Only Jamar Juan David Other [facility] Comment on above: Result Comment: 2023: [id number] 05-17-2021 COVID-19 Vaccine Moderna - Documentation Purposes Only Jamar Fall Other [facility] Comment on above: Result Comment: 2023: [id number] 04-22-2021 influenza virus vaccine, split virus (incl. purified surface antigen) Jamar Juan David Other [facility] 04-22-2021 influenza virus vaccine, unspecified formulation [facility] 04-16-2021 influenza nasal, unspecified formulation Marco A Esqueda MD Work Phone: [facility] 04-16-2021 influenza virus vaccine, unspecified formulation Anthony SCRUGGS [facility] 09-22-2020 COVID-19 Vaccine Moderna - Documentation Purposes Only Jamar Fall Other [facility] 08-26-2020 SARS-CoV-2 (COVID-19 ) Ad26 vaccine, recombinant Anthony SCRUGGS [facility] 08-24-2020 COVID-19 original vaccine, full dose, monovalent (MODERNA) [facility] Work Phone: [facility] 07-17-2020 SARS-CoV-2 (COVID-19 ) [id number] vaccine Anthony SCRUGGS [facility] Comment on above: Result Comment: pt d oes not know the dates but states that he is fully vaccinated 04-23-2020 influenza virus vaccine, split virus (incl. purified surface antigen) Jamar Fall Other [facility] 04-23-2020 influenza virus vaccine, unspecified formulation [facility] 04-22-2019 influenza virus vaccine, split virus (incl. purified surface antigen) Jamar Fall Other [facility] 04-22-2019 influenza virus vaccine, unspecified formulation [facility] 04-16-2019 influenza nasal, unspecified formulation Marco A Esqueda MD Work Phone: [facility] 08-20-2018 zoster vaccine recombinant Marco A Esqueda MD Work Phone: [facility] 06-11-2018 zoster vaccine recombinant Marco A Esqueda MD Work Phone: [facility] 04-16-2018 influenza nasal, unspecified formulation Marco A Esqueda MD Work Phone: [facility] 03-27-2018 AS03 adjuvant [facility] Work Phone: [facility] 03-27-2018 influenza nasal, unspecified formulation Lab/[place] Work Phone: [facility] 03-27-2018 influenza virus vaccine, split virus (incl. purified surface antigen) Jamar Fall Other [email or web address] Other 03-27-2018 influenza virus vaccine, unspecified formulation Anthony SCRUGGS [facility] 03-27-2018 Seasonal trivalent influenza vaccine, adjuvanted, preservative free Marco A Esqueda MD Work Phone: [facility] 06-12-2017 pneumococcal polysaccharide vaccine, 23 valent Marco A Esqueda MD Work Phone: [facility] 06-01-2017 pneumococcal polysaccharide vaccine, 23 valent Jamar Fall Other [facility] 06-01-2017 Prevnar 20 Jamar Fall Other [facility] 05-31-2017 influenza nasal, unspecified formulation Lab/[facility] [employer] Work Phone: [facility] 05-31-2017 influenza virus vaccine, unspecified formulation Anthony SCRUGGS [facility] 05-31-2017 influenza, injectabl e, quadrivalent, preservative free Marco A Esuqeda MD Work Phone: [facility] 04-03-2017 influenza nasal, unspecified formulation [facility]/[place] Work Phone: [facility] 04-03-2017 influenza virus vaccine, split virus (incl. purified surface antigen) Jamar Fall Other [email or web address] Other 04-03-2017 influenza virus vaccine, unspecified formulation Anthony KAEL [facility] 04-03-2017 influenza, high dose seasonal, preservative-free Marco A Esqueda MD Work Phone: [facility] 03-23-2017 influenza nasal, unspecified formulation Marco A Esqueda MD Work Phone: [facility] 04-01-2016 influenza virus vaccine, split virus (incl. purified surface antigen) Jamar Fall Other [facility] 04-01-2016 influenza virus vaccine, unspecified formulation [facility] 03-31-2016 influenza nasal, unspecified formulation Marco A Esqueda MD Work Phone: [facility] 05-11-2015 influenza nasal, unspecified formulation Marco A Esqueda MD Work Phone: [facility] 05-11-2015 influenza, seasonal, injectable, preservative free [facility] Work Phone: [facility] 05-11-2015 pneumococcal conjuga te vaccine, 13 valent Marco A Esqueda MD Work Phone: [facility] 04-29-2015 pneumococcal polysaccharide vaccine, 23 valent Marco A Esqueda MD Work Phone: [facility] 06-09-2014 influenza nasal, unspecified formulation [facility] Work Phone: [facility] 06-09-2014 influenza, seasonal, injectable, preservative free Marco A Esqueda MD Work Phone: [facility] 06-19-2013 diphtheria, tetanus toxoids and acellular pertussis vaccine, unspecified formulation Marco A Esqueda MD Work Phone: [facility] 06-19-2013 tetanus and diphther ia toxoids, not adsorbed, for adult use Marco A Esqueda MD Work Phone: [facility] 05-23-2013 influenza nasal, unspecified formulation Marco A Esqueda MD Work Phone: [facility] 04-24-2013 tetanus and diphther ia toxoids, adsorbed, preservative free, for adult use (5 Lf of tetanus toxoid and 2 Lf of diphtheria toxoid) Jamar Fall Other [facility] 06-27-2012 zoster vaccine, live Marco A lake MD Work Phone: [facility] 06-11-2012 influenza nasal, unspecified formulation Marco A Esqueda MD Work Phone: [facility] 06-02-2011 influenza nasal, unspecified formulation Marco A Esqueda MD Work Phone: [facility] 06-23-2010 pneumococcal polysaccharide vaccine, 23 valent Jamar Fall Other [facility] 06-07-2010 pneumococcal polysaccharide vaccine, 23 valent Marco A Esqueda MD Work Phone: [facility] 06-07-2010 pneumococcal vaccine , unspecified formulation Marco A Esqueda MD Work Phone: [facility] 05-28-2010 influenza nasal, unspecified formulation Marco A Esqueda MD Work Phone: [facility] 01-14-2010 pneumococcal polysaccharide vaccine, 23 valent Jamar Fall Other [facility] 05-25-2009 influenza nasal, unspecified formulation Marco A Esqueda MD Work Phone: [facility] 06-09-2008 influenza nasal, unspecified formulation Marco A Esqueda MD Work Phone: [facility] 07-23-2003 influenza virus vaccine, whole virus Marco A Esqueda MD Work Phone: [facility] 01-14-2003 diphtheria, tetanus toxoids and acellular pertussis vaccine, unspecified formulation Jamar Fall Other [facility] 01-10-2003 TD(adult) unspecifie d formulation Marco A Esqueda MD Work Phone: [facility] 07-03-2002 influenza nasal, unspecified formulation Marco A Esqueda MD Work Phone: [facility] Payers Date Payer Category Payer Unknown MMO MMO MEDICARE SUPPLEMENT [id number] 2019-Present [phone] [address] [place] [address] Indemnity [id number] 2019 Unknown [id number] 2011 Medicare MEDICARE MEDICAR E A AND B [id number] 2011-Present [phone] [address] [address] [place] [address] Medicare [id number] 2011 Medicare [id number] 1959 Medicare [id number] 1959 Self-pay 1959 Unknown [id number] 1946 Unknown [id number] [id number] 1946 Unknown [id number] 2.16.840.1.761198.3.579.2.593 1946 Unknown [id number] 2.16.840.1.145882.3.579.2.593 1946 Unknown [id number] 2.16.840.1.983882.3.579.2.593 1946 Unknown [id number] 2..840.1.136046.3.579.2.593 1946 Unknown [id number] 2.840.1.622553.3.579.2.1259 1946 Unknown [id number] 2.16.840.1.827832.3.579.2.1259 1946 Unknown [id number] 2.16.840.1.312168.3.579.2.1259 1946 Unknown [id number] 2.16.840.1.712283.3.579.2.1259 1946 Unknown [id number] [id number] 1946 Unknown [id number] 2.16.840.1.232857.3.579.2.727 1946 Unknown [id number] 2.16.840.1.061610.3.579.2.727 1946 Unknown [id number] 2.16.840.1.814480.3.579.2.727 Unknown [id number] 2.16.840.1.362780.3.579.2.593 Unknown [id number] [id number] Unknown [id number] Social History Date Type Detail Facility Start: 11-08-2021 End: 08-11-2022 Tobacco smoking status NHIS Never smoked tobacco [facility] Start: 10-25-2021 End: 11-02-2023 Alcohol intake Current drinker of alcohol (finding) [facility] Start: 08-19-2014 History SDOH Alcohol Comment 1 day/wk [facility] Start: 1945 Sex Assigned At Not on file [facility] Start: 10-18-2021 End: 05-12-2022 Exposure to SARS-CoV-2 (event) Not sure [facility] Tobacco smoking status Never [facility] Start: 02-02-2023 End: 01-31-2024 Sex Assigned At Male [facility] Start: 1945 Sex Assigned At Male C [facility] Start: 01-12-2018 End: 08-11-2022 Tobacco use and exposure Smokeless tobacco non-user [facility] Start: 02-02-2023 End: 01-31-2024 History of Social function [facility] Start: 02-11-2022 Gender identity Identifies as male gender (finding) [facility] Start: 02-11-2022 Sexual orientation Heterosexual (ce coburn) [facility] How often to you hav e [...] 09-06-2023 Tobacco smoking status NHIS Ex-smoker (finding) [facility] NEGATED: Highlighted rowStart: NINF History of tobacco use Passive smoker [facility] Medical Equipment Procedure Code Equipment Code Equipment Origin al Text Equipment Identifier Dates Start: 10-26-2021 End: 05-12-2022 Comment on above: 1 Each once daily. T o test blood sugars 1 Each once daily. T o test blood sugar Blood Sugar Diagnostic (Contour Next Test Strips) strip Start: 10-10-2023 Lancets (Lancets,Thin) [facility] Start: 09-08-2023 Blood Sugar Diagnostic (Contour Next Test Strips) strip Start: 09-08-2023 End: 10-10-2023 Blood Sugar Diagnostic (Contour Next Test Strips) strip Start: 10-10-2023 Lancets (Lancets,Thin) [facility] Start: 09-08-2023 Blood Sugar Diagnostic (Contour Next Test Strips) strip Start: 09-08-2023 End: 10-10-2023 Functional Status Date Assessment Result Facility 04-19-2024 Functional Status N/A [facility] 10-20-2023 Functional Status N/A [facility] 04-17-2023 Functional Status N/A [facility] 05-13-2022 Functional Status N/A [facility] Clinical Notes 07-17-2014 to 05-08-2024 Telephone Encounter - Aida Luo RPh - 05/08/2024 8:53 AM EDTTelephone Encounter - Aida Luo RPh - 05/08/2024 8:53 AM Marco A Miller MD - 05/08/2024 8:13 AM EDT Note Date & Type Note Facility 05-08-2024 Telephone encounter Note This prescription confirms Pablo' re-enrollment in the Xtandi free drug program for 2024. Thank you Josh Luo PharmD, BCOP [facility] Work Phone: 05-08-2024 Miscellaneous Notes This prescription confirms Pablo' re-enrollment in the Xtandi free drug program for 2024. Thank you Josh McKitrick, PharmD, BCOP documented in this encounter [facility] 05-08-2024 Note HNO ID: [id number] Author: MARCO A ESQUEDA MD Service: ? Author Type: Physician Type: Progress Notes Filed: 05/10/2024 07:40 Note Text: PATIENT NAME: Pablo Felix DATE: 05/09/2024 PRIMARY CARE PHYSICIAN: Dr. Jamar Fall OTHER PHYSICIANS: Dr. Anthony Scruggs, Dr. Khan, [facility] Cardiology Portions of this encounter [...] mg 24 hr tablet Take by mouth. Csayairinqtww-Cfzyducc-Mfnkoc (MULTIVITAMIN 50 PLUS) tab Take 1 tablet [...] Radical retropubic prostatectomy and bilateral pelvic lymphadenectomy ([facility]) Poorly differentiated prostatic adenocarcinoma [...] 0.11 10/25/2022 0.1 (more content not included)... [facility] 05-08-2024 History of Present illness Narrative PATIENT NAME: Pablo Felix DATE: 05/09/2024 PRIMARY CARE PHYSICIAN: Dr. Jamar Fall OTHER PHYSICIANS: Dr. Anthony Scruggs, Dr. Khan, [facility] Cardiology Portions of this encounter [...] mg 24 hr tablet Take by mouth. Htpjimydbdryg-Yztxxaem-Phvzqd (MULTIVITAMIN 50 PLUS) tab Take 1 tablet [...] Radical retropubic prostatectomy and bilateral pelvic lymphadenectomy ([facility]) Poorly differentiated prostatic adenocarcinoma [...] 05/03/2024 0.18 RADIOLOGY/OTHER STUDIES: 11/05/2021 CT chest/abdomen/pelvis ([facility]) Several sclerotic lesions consistent with metastatic disease. No evidence of visceral organ involvement or lymphadenopathy. 11/05/2021 Bone scan ([facility]) Multifocal osseous metastasis including the left femur at the lesser trochanter, right pubis symphysis, multiple ribs bilaterally. 01/22/2018 Nuclear bone scan ([facility]) New focal increased activity left frontal bone, left T8 vertebral body. 01/22/2018 MRI pelvis ([facility]) 4.5 cm area of T2 signal in the prostate bed. 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 Stable on current medications. Continue [...] Dr. Anthony Scruggs documented in this encounter [facility] 04-19-2024 Hospital Discharge instructions Patient Education [...] the likelihood that the cancer will spread. Hammond 6 or lower: This indicates that the cancer cells look similar to normal prostate cells (well differentiated). Hammond 7: This indicates that the cancer cells look somewhat similar to normal prostate cells (moderately differentiated). Hammond 8, 9, or 10: This indicates that [...] stress of having cancer. General instructions Take ivqy-bcf-fvcfqqq and prescription medicines only as told by your health care provider. If you have to go to the hospital, notify your cancer specialist (oncologist). Keep all follow-up visits. This is important. Where to find more information [place] [employer]: www.cancer.org [place] [employer] Clinical Oncology: www.cancer.net National Cancer [place]: www.cancer.gov Contact a health care provider if: [...] provider. Document Revised: 09/29/2021 Document Reviewed: 09/29/2021 [employer] Patient Education 2023 [employer]. Follow Up Care 10/20/2023 09:58:12 With:KAEL JAMES, Anthony Lee, URL Address: [address] [place] [address]- When: Unknown [facility] 04-19-2024 Note Patient Education Oncology Prostate [...] likelihood that the cancer will spread. ? Hammond 6 or lower: This indicates that the [...] the prostate gla (more content not included)... [facility] 04-01-2024 Telephone encounter Note Recd phone call from [facility] that they are unable to obtain the Xtandi 80mg tablets a this time and requested a script for the 40 mg dosing. Order pending Josh Luo PharmD, IDALIA [facility] Work Phone: 04-01-2024 Miscellaneous Notes Recd phone call from [facility] that they are unable to obtain the Xtandi 80mg tablets a this time and requested a script for the 40 mg dosing. Order pending Josh Luo PharmD, IDALIA documented in this encounter [facility] 03-29-2024 Note Coronary artery dise ase is stable, no concerning symptoms currently overall is doing well he is planning bilateral carpal tunnel surgery soon with Dr. Charlton. Continue GDMT-continue aspirin, Lipitor, metoprolol, and lisinopril continue risk factor modifications- heart healthy diet, regular exercise as tolerated and continue all medications. [facility] 03-29-2024 Note Hypertension is well -controlled at 127/51 Continue lisinopril/hydrochlorothiazide and metoprolol. Renal function normal [facility] 03-29-2024 Note Lipid abnormalities are stable continue Lipitor 40 mg daily lipid profile is well-controlled and liver function is normal [facility] 03-29-2024 Note Reviewed echocardiog tabby from July 08 moderate aortic stenosis noted and reviewed echo with patient and his No concerning symptoms at this time patient would like symptoms including palpitations, lightheaded dizziness, syncope, chest pain, worsening shortness of breath and he voiced understanding Monitor with echocardiogram [facility] 03-29-2024 Note RCRI=1 points Class II Risk 6.0 % 30-day risk of , PR, or cardiac arrest From a cardiac perspective pt may proceed with carpal tunnel surgery, he is a moderate risk for a low risk surgery. She may hold aspirin 5-7 days prior and resume post op. Please monitor hemodynamics carefully and prevent any major fluid shifts. [facility] 03-29-2024 Note Pt is here for surge ry clearance. Pt denies chest pain, sob, palpatations Review of Systems Musculoskeletal: Positive for arthritis, back pain, joint pain and myalgias. All other systems reviewed and are negative. [facility] 03-29-2024 Note UTP CARDIOLOGY PROGR ESS [...] stenosis and regur (more content not included)... [facility] 02-02-2024 Instructions Lynne Alarcon APRN.GENER[employer] [address] [employer] - 02/02/2024 11:37 AM EDT Possible signs [...] swallowing, increasing confusion documented in this encounter [facility] 02-02-2024 History of Present illness Narrative PATIENT NAME: Pablo Felix DATE: February 02, 2024 PRIMARY CARE PHYSICIAN: Dr. Jamar Fall OTHER PHYSICIANS: Dr. Anthony Scruggs, Dr. Khan, [facility] Cardiology This note was copied [...] mg 24 hr tablet Take by mouth. Flboneksagwux-Lnwaekqw-Bgzfqw (MULTIVITAMIN 50 PLUS) tab Take 1 tablet [...] Radical retropubic prostatectomy and bilateral pelvic lymphadenectomy ([facility]) Poorly differentiated prostatic adenocarcinoma [...] 01/25/2024 0.15 RADIOLOGY/OTHER STUDIES: 11/05/2021 CT chest/abdomen/pelvis ([facility]) Several sclerotic lesions consistent with metastatic disease. No evidence of visceral organ involvement or lymphadenopathy. 11/05/2021 Bone scan ([facility]) Multifocal osseous metastasis including the left femur at the lesser trochanter, right pubis symphysis, multiple ribs bilaterally. 01/22/2018 Nuclear bone scan ([facility]) New focal increased activity left frontal bone, left T8 vertebral body. 01/22/2018 MRI pelvis ([facility]) 4.5 cm area of T2 signal in the prostate bed. 07/24/2014 CT abdomen/pelvis ([facility]) Diffuse prostatic enlargement with indentation of the [...] suppressed at <12. 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 Stable on current medications. Continue [...] APRN.CNP Hematology/Oncology [facility]/ [facility] [phone] CC: Dr. Anthony Scruggs documented in this encounter [facility] 02-02-2024 Note HNO ID: [id number] Author: LYNNE ALARCON APRN.CNP Service: ? Author Type: Nurse Practitioner Type: Progress Notes Filed: 02/02/2024 11:37 Note Text: PATIENT NAME: Pablo Felix DATE: February 02, 2024 PRIMARY CARE PHYSICIAN: Dr. Jamar Fall OTHER PHYSICIANS: Dr. Anthony Scruggs, Dr. Khan, [facility] Cardiology This note was copied [...] mg 24 hr tablet Take by mouth. Xuonjbuylaryh-Sywhctox-Ejvrmo (MULTIVITAMIN 50 PLUS) tab Take 1 tablet [...] Radical retropubic prostatectomy and bilateral pelvic lymphadenectomy ([facility]) Poorly differentiated prostatic adenocarcinoma [...] 0.43 09/07/2020 0.84 (more content not included)... [facility] 11-02-2023 Note HNO ID: [id number] Author: CHRISTO HOWARD APRN.GENER[employer] [address] [employer]EMAN Service: ? Author Type: Nurse Practitioner Type: Progress Notes Filed: 11/03/2023 11:11 Note Text: PATIENT NAME: Pablo Felix DATE: 11/02/2023 PRIMARY CARE PHYSICIAN: Dr. Jamar Fall OTHER PHYSICIANS: Dr. Anthony Scruggs, Dr. Khan, [facility] Cardiology Portions of this encounter [...] mg 24 hr tablet Take by mouth. Lnbivmvhzjzhi-Hgibnvmi-Qwdzvs (MULTIVITAMIN 50 PLUS) tab Take 1 tablet [...] Radical retropubic prostatectomy and bilateral pelvic lymphadenectomy ([facility]) Poorly differentiated prostatic adenocarcinoma [...] <0.13 09/26/2019 0.09 (more content not included)... [facility] 11-02-2023 History of Present illness Narrative PATIENT NAME: Pablo Felix DATE: 11/02/2023 PRIMARY CARE PHYSICIAN: Dr. Jamar Fall OTHER PHYSICIANS: Dr. Anthony Scruggs, Dr. Khan, [facility] Cardiology Portions of this encounter [...] mg 24 hr tablet Take by mouth. Uwwauucdratyj-Zlxvigvi-Ycbzan (MULTIVITAMIN 50 PLUS) tab Take 1 tablet [...] Radical retropubic prostatectomy and bilateral pelvic lymphadenectomy ([facility]) Poorly differentiated prostatic adenocarcinoma [...] 10/29/2023 0.16 RADIOLOGY/OTHER STUDIES: 11/05/2021 CT chest/abdomen/pelvis ([facility]) Several sclerotic lesions consistent with metastatic disease. No evidence of visceral organ involvement or lymphadenopathy. 11/05/2021 Bone scan ([facility]) Multifocal osseous metastasis including the left femur at the lesser trochanter, right pubis symphysis, multiple ribs bilaterally. 01/22/2018 Nuclear bone scan ([facility]) New focal increased activity left frontal bone, left T8 vertebral body. 01/22/2018 MRI pelvis ([facility]) 4.5 cm area of T2 signal in the prostate bed. 07/24/2014 CT abdomen/pelvis ([facility]) Diffuse prostatic enlargement with indentation of the [...] consistent with stage IIIC (pT2b, N0, M0), Hammond 5+4 equal 9. Postop the patient's PSA [...] suppressed at <12. 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 Stable on current medications. Continue [...] would reconsider referral to GI. Christo Howard APRN.GENERAL [address] FOREMAN CC: Dr. Anthony Scruggs I spent a total of 30 minutes on the date of the service which included preparing to see the patient, ofkb-yq-tbjj patient care, completing clinical documentation, obtaining and/or reviewing separately obtained history, performing a medically appropriate examination, counseling and educating the patient/family/caregiver, ordering medications, tests, or procedures, independently interpreting results (not separately reported), and communicating results to the patient/family/caregiver. documented in this encounter [facility] 10-20-2023 Hospital Discharge instructions Patient Education [...] under a microscope. This is called the Hammond score and the total score can range from 6 10, indicating how likely it is that the cancer will spread (metastasize) to other parts of the body. The higher the score, the greater the likelihood that the cancer will spread. Hammond 6 or lower: This indicates that the cancer cells look similar to normal prostate cells (well differentiated). Hammond 7: This indicates that the cancer cells [...] stress of having cancer. General instructions Take mgaj-hrt-iqzpcfu and prescription medicines only as told by your health care provider. If you have to go to the hospital, notify your cancer specialist (oncologist). Keep all follow-up visits. This is important. Where to find more information [place] [employer]: www.cancer.org [place] [employer] Clinical Oncology: www.cancer.net National Cancer [place]: www.cancer.gov Contact a health care provider if: [...] provider. Document Revised: 09/29/2021 Document Reviewed: 09/29/2021 [employer] Patient Education 2022 [employer]. Follow Up Care 04/17/2023 09:25:02 With:KAEL JAMES, Anthony Lee, URL Address: [address] [place], [place] [id number]- When: Unknown [facility] 08-28-2023 History of Present illness Narrative Images [...] limited to risks of scarring, darker or public accountant pigmentary changes, recurrence, incomplete removal and infection. [...] results, 6 months documented in this encounter [facility] 08-24-2023 Evaluation note Encounter Date Diagnosis [...] use, the patient reduces the risk for PR, CVA, HTN, cardiac dysrhythmias and sudden cardiac [...] retention cyst and frontal sinus mass benign [email or web address] Other 01-19-2024 Evaluation note* Encounter Date Diagnosis Assessment Notes Treatment Notes Treatment Clinical Notes Jul, Pancreatic mass (ICD-10 - K86.89) MRCP: 4cm mass - 2022 - previously completed EUS bx at [facility] - stable in size from 2021 [email or web address] Other 12-07-2023 [facility] Cardiology Clinic Note Chief Complaint: Patient here [...] should problems arise Bridger Mulligan MD, MPH, [facility], [facility], [facility] Interventional Cardiology Pager Email: [email or web address] Evaluation note* Encounter Date Diagnosis Assessment Notes [...] ENT since scheduling appt for sinus mass [email or web address] Other [id number] Evaluation note* Encounter Date Diagnosis Assessment Notes [...] malignant neoplasm of bone (ICD-10 - C79.51) [email or web address] Other 10-12-2023 History of Present illness Narrative* Christo Howard APRN.[address] FOREMAN - 04/27/2023 10:00 AM EDT PATIENT NAME: Pablo Felix DATE: 04/27/2023 PRIMARY CARE PHYSICIAN: Dr. Jamar Fall OTHER PHYSICIANS: Dr. Anthony Scruggs, Dr. Khan, [facility] Cardiology Portions of this encounter [...] mg 24 hr tablet Take by mouth. Xfjrdvuppuzsl-Dpbignuc-Mmxvdz (MULTIVITAMIN 50 PLUS) tab Take 1 tablet [...] Radical retropubic prostatectomy and bilateral pelvic lymphadenectomy ([facility]) Poorly differentiated prostatic adenocarcinoma [...] 04/24/2023 0.12 RADIOLOGY/OTHER STUDIES: 11/05/2021 CT chest/abdomen/pelvis ([facility]) Several sclerotic lesions consistent with metastatic disease. No evidence of visceral organ involvement or lymphadenopathy. 11/05/2021 Bone scan ([facility]) Multifocal osseous metastasis including the left femur at the lesser trochanter, right pubis symphysis, multiple ribs bilaterally. 01/22/2018 Nuclear bone scan ([facility]) New focal increased activity left frontal bone, left T8 vertebral body. 01/22/2018 MRI pelvis ([facility]) 4.5 cm area of T2 signal in the prostate bed. 07/24/2014 CT abdomen/pelvis ([facility]) Diffuse prostatic enlargement with indentation of the bladder base. Incidental 2.5 x 1 cm exophytic hypodense lesion adjacent to the pancreatic body. ASSESSMENT/PLAN: 1. Metastatic prostate cancer (HCC) - ICD9: 185, ICD10: C61 (primary diagnosis) The patient was diagnosed with early-stage high-grade prostate cancer in June 2014 (TRUS [id number]/02/2014). He underwent a radical prostatectomy on 11/05/2014. [...] suppressed at <12. 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 Stable on current medications. Continue [...] which included preparing to see the patient, drxn-cf-ttds patient care, completing clinical documentation, obtaining and/or reviewing separately obtained history, performing a medically appropriate examination, counseling and educating the pat ient/family/caregiver, ordering medications, tests, or procedures, independently interpreting results (not separately reported), and communicating results to the patient/family/caregiver. documented in this encounterUniversity Hospitals Ahuja Medical Center10-03-2023 Evaluation note* Encounter Date Diagnosis Assessment Notes Treatment Notes Treatment Clinical Notes Apr, Pancreatic mass (ICD-10 - K86.89) [email or web address] Other [id number] Hospital Discharge instructions Patient Education 04/17/2023 09:18:19 [...] similar to normal prostate cells (well differentiated). Hammond 7: This indicates that the cancer cells [...] stress of having cancer. General instructions Take ytuq-mdv-iwtyeic and prescription medicines only as told by your health care provider. If you have to go to the hospital, notify your cancer specialist (oncologist). Keep all follow-up visits. This is important. Where to find more information [place] [employer]: www.cancer.org [place] [employer] On[employer]: www.cancer.net National Cancer [place]: www.cancer.gov Contact a health care provider if: [...] provider. Document Revised: 09/29/2021 Document Reviewed: 09/29/2021 [employer] Patient Education 2022 [employer]. Follow Up Care 10/28/2022 08:37:57 With:Blaire SCRUGGS MDrick R, URL Address: [facility] [address], [place] [address]- [phone] When: Unknown Comments:6 mos w/ PSA (and possible Lupron) [facility] 09-27-2023 Evaluation note* Encounter Date Diagnosis Assessment Notes Treatment Notes Treatment Clinical Notes Mar, Pancreatic mass (ICD-10 - K86.89) [employer] Other 09-20-2023 Evaluation note* Encounter Date Diagnosis Assessment Notes Treatment Notes Treatment Clinical Notes Mar, Right upper quadrant abdominal pain (ICD-10 - R10.11) Diet instructions Lab to r/o acute infection, cholecystitis, pancreatitis GBUS vs CT abd based on results BLand, low fat diet Mar, Nausea (ICD-10 - R11.0) [place] , small/frequent feedings. Pepcid, Prilosec, Tums as [...] Microalbumin, Dilated eye exam and Foot exam [facility] [employer] Other 08-30-2023 Evaluation note* Encounter Date Diagnosis Assessment Notes Treatment Notes Treatment Clinical Notes Feb, ASHD (arteriosclerotic heart disease) (ICD-10 - I25.10) This patient is stable without activity related CP, dyspnea or lightheadedness. They are instructed to continue exercise and AHA diet plan. Feb, Nonrheumatic aortic valve stenosis (ICD-10 - I35.0) ECHO: ROGER 1.13, Velocity 324, 42/23 - 04/2022 Asymptomatic w/o CP, tachycardia or [...] use, the patient reduces the risk for PR, CVA, HTN, cardiac dysrhythmias and sudden cardiac [...] exercise for 30 minutes, 3-5 times weekly. [email or web address] Other 07-23-2023 Evaluation note* Encounter Date Diagnosis Assessment Notes Treatment Notes Treatment Clinical Notes Jan, Left bundle-branch block, unspecified (ICD-10 - I44.7) [email or web address] Other 07-20-2023 History of Present illness Narrative* Marco A Esqueda MD - 02/02/2023 7:38 AM EDT PATIENT NAME: Pablo Felix DATE: 02/02/2023 PRIMARY CARE PHYSICIAN: Dr. Jamar Fall OTHER PHYSICIANS: Dr. Anthony Scruggs, Dr. Khan, [facility] Cardiology Portions of this encounter [...] mg 24 hr tablet Take by mouth. Ckbbzgufrzkpl-Yhxxvgwf-Pslwur (MULTIVITAMIN 50 PLUS) tab Take 1 tablet [...] Radical retropubic prostatectomy and bilateral pelvic lymphadenectomy ([facility]) Poorly differentiated prostatic adenocarcinoma [...] 10/25/2022 0.13 RADIOLOGY/OTHER STUDIES: 11/05/2021 CT chest/abdomen/pelvis ([facility]) Several sclerotic lesions consistent with metastatic disease. No evidence of visceral organ involvement or lymphadenopathy. 11/05/2021 Bone scan ([facility]) Multifocal osseous metastasis including the left femur at the lesser trochanter, right pubis symphysis, multiple ribs bilaterally. 01/22/2018 Nuclear bone scan ([facility]) New focal increased activity left frontal bone, left T8 vertebral body. 01/22/2018 MRI pelvis ([facility]) 4.5 cm area of T2 signal in the prostate bed. 07/24/2014 CT abdomen/pelvis ([facility]) Diffuse prostatic enlargement with indentation of the bladder base. Incidental 2.5 x 1 cm exophytic hypodense lesion adjacent to the pancreatic body. ASSESSMENT/PLAN: 1. Metastatic prostate cancer (HCC) - ICD9: 185, ICD10: C61 (primary diagnosis) The patient was diagnosed with early-stage high-grade prostate cancer in June 2014 (TRUS [id number]/02/2014). He underwent a radical prostatectomy on 11/05/2014. Pathology consistent with stage IIIC (pT2b, N0, M0), Hammond 5+4 equal 9. Postop the patient's PSA [...] suppressed at <12. 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 Stable on current medications. Continue [...] CC: Dr. Anthony Scruggs documented in this encounterUniversity Hospitals Ahuja Medical Center04-27-2023 History of Present illness Narrative* Christo Howard APRN.GENER[address] FOREMAN - 11/10/2022 10:00 AM EDT PATIENT NAME: Pablo Felix DATE: 11/10/2022 PRIMARY CARE PHYSICIAN: Dr. Jamar Fall OTHER PHYSICIANS: Dr. Anthony Scruggs, Dr. Khan, [facility] Cardiology Portions of this encounter [...] mg 24 hr tablet Take by mouth. Asvihixexublk-Guxdqtny-Neyiaw (MULTIVITAMIN 50 PLUS) tab Take 1 tablet [...] Radical retropubic prostatectomy and bilateral pelvic lymphadenectomy ([facility]) Poorly differentiated prostatic adenocarcinoma [...] PSA 0.13 RADIOLOGY/OTHER STUDIES: 11/05/2021 CT chest/abdomen/pelvis ([facility]) Several sclerotic lesions consistent with metastatic disease. No evidence of visceral organ involvement or lymphadenopathy. 11/05/2021 Bone scan ([facility]) Multifocal osseous metastasis including the left femur at the lesser trochanter, right pubis symphysis, multiple ribs bilaterally. 01/22/2018 Nuclear bone scan ([facility]) New focal increased activity left frontal bone, left T8 vertebral body. 01/22/2018 MRI pelvis ([facility]) 4.5 cm area of T2 signal in the prostate bed. 07/24/2014 CT abdomen/pelvis ([facility]) Diffuse prostatic enlargement with indentation of the bladder base. Incidental 2.5 x 1 cm exophytic hypodense lesion adjacent to the pancreatic body. ASSESSMENT/PLAN: 1. Metastatic prostate cancer (HCC) - ICD9: 185, ICD10: C61 (primary diagnosis) The patient was diagnosed with early-stage high-grade prostate cancer in June 2014 (TRUS [id number]/02/2014). He underwent a radical prostatectomy on 11/05/2014. [...] suppressed at <12. 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 Stable on current medications. Continue [...] Will monitor with repeat CT scan. Christo Hoawrd APRN.CNP CC: Dr. Anthony Scruggs I spent a total of 30 minutes on the date of the service which included preparing to see the patient, vmwk-xr-jkvl patient care, completing clinical documentation, obtaining and/or reviewing separately obtained history, performing a medically appropriate examination, counseling and educating the pat ient/family/caregiver, ordering medications, tests, or procedures, independently interpreting results (not separately reported), and communicating results to the patient/family/caregiver. documented in this encounterUniversity Hospitals Ahuja Medical Center03-03-2023 Evaluation note* Encounter Date Diagnosis Assessment [...] injection w/ Kenalog, may increase BS slightly [email or web address] Other 02-24-2023 Evaluation note* Encounter Date Diagnosis [...] use, the patient reduces the risk for PR, CVA, HTN, cardiac dysrhythmias and sudden cardiac [...] Lupron along w/ additional oral chemotherapy from [facility] Oncology. Also receiving Boniva Aug, [...] reviewed and amended by provider signed below. [email or web address] Other 01-26-2023 History of Present illness Narrative* Marco A Esquead MD - 08/11/2022 7:42 AM EST PATIENT NAME: Pablo Felix DATE: 08/11/2022 PRIMARY CARE PHYSICIAN: Dr. Jamar Fall OTHER PHYSICIANS: Dr. Anthony Scruggs, Dr. Khan, [facility] Cardiology Portions of this encounter [...] mg 24 hr tablet Take by mouth. Fghnxmeggttgj-Qikbuzlq-Kwvxuk (MULTIVITAMIN 50 PLUS) tab Take 1 tablet [...] Radical retropubic prostatectomy and bilateral pelvic lymphadenectomy ([facility]) Poorly differentiated prostatic adenocarcinoma [...] 08/11/2022 PSA RADIOLOGY/OTHER STUDIES: 11/05/2021 CT chest/abdomen/pelvis ([facility]) Several sclerotic lesions consistent with metastatic disease. No evidence of visceral organ involvement or lymphadenopathy. 11/05/2021 Bone scan ([facility]) Multifocal osseous metastasis including the left femur at the lesser trochanter, right pubis symphysis, multiple ribs bilaterally. 01/22/2018 Nuclear bone scan ([facility]) New focal increased activity left frontal bone, left T8 vertebral body. 01/22/2018 MRI pelvis ([facility]) 4.5 cm area of T2 signal in the prostate bed. 07/24/2014 CT abdomen/pelvis ([facility]) Diffuse prostatic enlargement with indentation of the bladder base. Incidental 2.5 x 1 cm exophytic hypodense lesion adjacent to the pancreatic body. ASSESSMENT/PLAN: 1. Metastatic prostate cancer (HCC) - ICD9: 185, ICD10: C61 (primary diagnosis) The patient was diagnosed with early-stage high-grade prostate cancer in June 2014 (TRUS [id number]/02/2014). He underwent a radical prostatectomy on 11/05/2014. [...] suppressed at <12. 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 Stable on current medications. Continue [...] CC: Dr. Anthony Scruggs documented in this encounterUniversity Hospitals Ahuja Medical Center01-05-2023 NotePROCEDURE: XR SHOULDER LT 2V or [...] Jul, Annual physical exam (ICD-10 - Z00.00) [email or web address] Other 10-28-2022 Hospital Discharge instructions Patient Education [...] who: Are older than age 65. Are -[place]. Are obese. Have a family history of [...] cells. Follow these instructions at home: Take ckgx-ekf-xqqhask and prescription medicines only as told by [...] 07/03/2006 Document Revised: 06/15/2018 Document Reviewed: 03/13/2017 [employer] Patient Education 2020 [employer]. Follow Up Care 11/08/2021 14:14:20 With:KAEL JAMES, Anthony Lee, URL Address: [address] [place] [address] [place]N [address]- When: Unknown [facility] 10-27-2022 Nurse Note* Sheela Toney - 05/12/2022 10:43 AM EDT AUA=2 documented in this encounterUniversity Hospitals Ahuja Medical Center10-27-2022 History of Present illness Narrative* Zach Khan MD - 05/12/2022 10:41 AM EDT Radiation Oncology - Follow Up Note PATIENT NAME: Pablo Felix PATIENT DIAGNOSIS: Prostate adenocarcinoma, initial clinical stage II, initial PSA 1.07, biopsy Lucrecia score 9(4,5), s/p prostatectomy for 11/05/14 pathologic stage IIIC [id number], Hammond 9 (5, 4) now with rising PSA [...] Each once daily. To test blood sugar Bfqtmedhcehwg-Xfpylkto-Ulusfs (MULTIVITAMIN 50 PLUS) tab Take 1 tablet [...] clinical stage II, initial PSA 1.07, biopsy Hammond score 9(4,5), s/p prostatectomy for 11/05/14 pathologic stage IIIC [id number], Hammond 9 (5, 4) withrising PSA, subsequently status [...] Zach Khan MD cc: Jamar Fall MD ([facility]) Portions of the above note extracted and edited from previous visit as well as active information included in the EMR. documented in this encounterUniversity Hospitals Ahuja Medical Center10-17-2022 Miscellaneous Notes* Telephone Encounter - Sheela Toney - 05/02/2022 10:48 AM EDT Patient coming in on 05/12/22 for follow up with labs. Please add lab orders. Thanks, Sheela Toney MA documented in this encounterUniversity Hospitals Ahuja Medical Center08-04-2022 History of Present illness Narrative* Marco A Esqueda MD - 02/17/2022 7:51 AM EDT PATIENT NAME: Pablo Felix DATE: 02/17/2022 PRIMARY CARE PHYSICIAN: Jamar Fall, OTHER PHYSICIANS: Dr. Anthony Scruggs, Dr. Khan, [facility] Cardiology Portions of this encounter [...] Each once daily. To test blood sugar Cvlpxrbuqwbyu-Vvbajfwk-Appvhg (MULTIVITAMIN 50 PLUS) tab Take 1 tablet [...] Radical retropubic prostatectomy and bilateral pelvic lymphadenectomy ([facility]) Poorly differentiated prostatic adenocarcinoma [...] PSA 0.14 RADIOLOGY/OTHER STUDIES: 11/05/2021 CT chest/abdomen/pelvis ([facility]) Several sclerotic lesions consistent with metastatic disease. No evidence of visceral organ involvement or lymphadenopathy. 11/05/2021 Bone scan ([facility]) Multifocal osseous metastasis including the left femur at the lesser trochanter, right pubis symphysis, multiple ribs bilaterally. 01/22/2018 Nuclear bone scan ([facility]) New focal increased activity left frontal bone, left T8 vertebral body. 01/22/2018 MRI pelvis ([facility]) 4.5 cm area of T2 signal in the prostate bed. 07/24/2014 CT abdomen/pelvis ([facility]) Diffuse prostatic enlargement with indentation of the bladder base. Incidental 2.5 x 1 cm exophytic hypodense lesion adjacent to the pancreatic body. ASSESSMENT/PLAN: 1. Metastatic prostate cancer (HCC) - ICD9: 185, ICD10: C61 (primary diagnosis) The patient was diagnosed with early-stage high-grade prostate cancer in June 2014 (TRUS [id number]/02/2014). He underwent a radical prostatectomy on 11/05/2014. Pathology consistent with stage IIIC (pT2b, N0, M0), Hammond 5+4 equal 9. Postop the patient's PSA [...] at <12. Staging scans were obtained at [facility] on 11/05/2021. Bone scan [...] 414.01, ICD10: I25.10 Status post CABG 08/17/2014 ([facility]). Stable on current medications. Continue [...] CC: Dr. Anthony Scruggs documented in this encounterUniversity Hospitals Ahuja Medical Center05-23-2022 Miscellaneous Notes* Telephone Encounter - Clementine [...] that he has the phone number to [facility] pharmacy. No additional questionsnoted. Clementine Aguilar RN documented in this encounterUniversity Hospitals Ahuja Medical Center04-28-2022 History of Present illness Narrative* Marco A Esqueda MD - 11/11/2021 7:42 AM EDT PATIENT NAME: Pablo Felix DATE: 11/11/2021 PRIMARY CARE PHYSICIAN: Jamar Fall DO OTHER PHYSICIANS: Dr. Anthony Scruggs, Dr. Khan, [facility] Cardiology Portions of this encounter note have been copied from my note from 10/28/2021 and has been updated where appropriate, and reflect my current medical decision making from today. CC: This is a 76 year old male with recently diagnosed metastatic prostate cancer, seen for scheduled follow-up. INTERIM HISTORY: Since the patient's initial visit here he underwent staging scans at [facility] on 11/05/2021. Bone scan [...] Each once daily. To test blood sugar Ogoixyldurrva-Kkkraobk-Issrph (MULTIVITAMIN 50 PLUS) tab Take 1 tablet [...] Radical retropubic prostatectomy and bilateral pelvic lymphadenectomy ([facility]) Poorly differentiated prostatic adenocarcinoma [...] PSA 2.64 RADIOLOGY/OTHER STUDIES: 11/05/2021 CT chest/abdomen/pelvis ([facility]) Several sclerotic lesions consistent with metastatic disease. No evidence of visceral organ involvement or lymphadenopathy. 11/05/2021 Bone scan ([facility]) Multifocal osseous metastasis including the left femur at the lesser trochanter, right pubis symphysis, multiple ribs bilaterally. 01/22/2018 Nuclear bone scan ([facility]) New focal increased activity left frontal bone, left T8 vertebral body. 01/22/2018 MRI pelvis ([facility]) 4.5 cm area of T2 signal in the prostate bed. 07/24/2014 CT abdomen/pelvis ([facility]) Diffuse prostatic enlargement with indentation of the bladder base. Incidental 2.5 x 1 cm exophytic hypodense lesion adjacent to the pancreatic body. ASSESSMENT/PLAN: 1. Metastatic prostate cancer (HCC) - ICD9: 185, ICD10: C61 (primary diagnosis) The patient was diagnosed with early-stage high-grade prostate cancer in June 2014 (TRUS [id number]/02/2014). He underwent a radical prostatectomy on 11/05/2014. [...] at <12. Staging scans were obtained at [facility] on 11/05/2021. Bone scan [...] 414.01, ICD10: I25.10 Status post CABG 08/17/2014 ([facility]). Stable on current medications. Continue [...] CC: Dr. Anthony Scruggs documented in this encounterUniversity Hospitals Ahuja Medical Center04-27-2022 Miscellaneous Notes* Telephone Encounter - Clementine Aguilar RN - 11/10/2021 3:03 PM EDT Pt reports his Enzalutamide was delivered. Will start this evening. Clementine Aguilar RN documented in this encounterUniversity Hospitals Ahuja Medical Center04-26-2022 Miscellaneous Notes* Telephone Encounter - Clementine Aguilar RN - 11/09/2021 2:31 PM EDT Per pt, his Enzalutamide is scheduled to arrive tomorrow morning. Patient started/will start taking Enzalutamide on 11/10/21. Clementine Aguilar RN documented in this encounterUniversity Hospitals Ahuja Medical Center04-25-2022 Hospital Discharge instructions Patient Education 11/08/2021 [...] who: Are older than age 65. Are -N[place]. Are obese. Have a family history of [...] cells. Follow these instructions at home: Take rghi-oul-hrtsngw and prescription medicines only as told by [...] 07/03/2006 Document Revised: 06/15/2018 Document Reviewed: 03/13/2017 [employer] Patient Education 2020 [employer]. Follow Up Care 08/23/2021 13:26:07 With:KAEL JAMES, Anthony Lee, URL Address: [facility] [address] , [place] [address]- [phone] When:05/10/2022 [facility] 04-21-2022 Miscellaneous Notes* Telephone Encounter - Clementine Aguilar RN - 11/04/2021 2:53 PM EDT Pt would like to get the 4th Covid vaccine when it's due. Dr Esqueda notified and gives the ok to proceed when due. Pt notified and verbalizes understanding. Clementine Aguilar RN documented in this encounterUniversity Hospitals Ahuja Medical Center04-21-2022 History of Present illness Narrative* Clementine [...] Information handout: Enzalutamide, Specialty Pharmacy Information : [facility] Pharmacy phone numbers: Yes [...] minutes Clementine Aguilar RN * Aida Luo, [facility] - 11/04/2021 2:49 PM EDT Images from the original note were not included. [facility] Department of Pharmacy Oncology Pharmacy Medication [...] Each once daily. To test blood sugar Tkmjxribbvqiw-Aivknzgf-Jltwvf (MULTIVITAMIN 50 PLUS) tab Take 1 tablet [...] of chemotherapy NA - Followed up with [facility] for delivery of Free [employer] Readiness [...] (15 minute increments) with the patient Rubin Navdeep Luo documented in this encounterUniversity Hospitals Ahuja Medical Center04-21-2022 Miscellaneous Notes* Telephone Encounter - Aida RodneycindyCLEOPATRA - 11/04/2021 10:54 AM EDT Confirmed with [employer] approval date 11/01/21 and that the specialty pharmacy, [facility], will reach out to Mr Felix 3-5 business days from approval date. If he does not hear from them by 11/10/21 we should call [facility] @ option 2. I informed Mr Felix of this, he has an appt 11/12/21 and said if he has not heard from them by then he will get their phone number from us. Rubin Navdeep Luo documented in this encounterUniversity Hospitals Ahuja Medical Center04-19-2022 Miscellaneous Notes* Telephone Encounter - Jennifer Amaro - 11/02/2021 12:23 PM EDT Called pt, scheduled for education (11/04) @ 900am. * Telephone Encounter - Clementine Aguilar RN - 11/02/2021 11:57 AM EDT Clerical: Please schedule pt for education. Thank you! Clementine Aguilar RN * Telephone Encounter - Aida Luo RP - 11/02/2021 11:41 AM EDT Approved for free [employer] until 07/16/22. Spoke to patient and let him know to be expecting this call. [facility] will call patient to set up delivery for all fills. I do not see where he has had chemo education yet. Alba does he need to be set up with you? Thanks Rubin Luo RPh * Telephone Encounter - Andreina Castillo RP - 11/01/2021 10:55 AM EDT Patient called today. We completed a conference call with [employer] - they were ableto obtain consent and [...] We will proceed free drug application through [employer]. Pharmacy to reach out to patient 10/29/2021 to notify. Brina Wang RPh * Telephone Encounter - Brina Wang RPh - 10/28/2021 3:08 PM EDT Ambulatory Pharmacy Prior Authorization Note Provider Intervention Required?: No- Pharmacy completed on your behalf. Drug: Xtandi Cover My Meds Carter: [id number] Determination: Approved Prior Authorization/Case #: [id number] Prior Authorization Expiration: 10/28/2022 Time to PA Submission in CMM: 15 min Time to PA Determination in CMM: Same day Additional Information: Co-Pay $3,111.12 For questions relating to this submission, please contact [facility] at [phone] documented in this encounterUniversity Hospitals [facility] Center04-19-2022 Miscellaneous Notes* Telephone Encounter - Zohra Avila PA-C - 11/02/2021 12:00 PM EDT CBC and CMP orders placed Zohra Avila PA-C * Telephone Encounter - Katie Rosen MA - 11/02/2021 11:57 AM EDT Patient has an appt on 11/11/21. Would you like labs, if so place orders. Katie Rosen MA documented in this encounterUniversity Hospitals Ahuja [facility] Center04-18-2022 Miscellaneous Notes* Telephone Encounter - Clementine [...] assistance program. Thanks, BRM documented in this encounterUniversity Hospitals Ahuja [facility] Center04-14-2022 Miscellaneous Notes* Telephone Encounter - Clementine [...] back. Clementine Aguilar RN documented in this encounterUniversity Hospitals Ahuja [facility] Center04-14-2022 Miscellaneous Notes* Telephone Encounter - Clementine Aguilar RN - 10/28/2021 1:12 PM EDT This encounter was opened in error. @[email or web address]@ documented in this encounterUniversity Hospitals Ahuja Medical Center04-11-2022 Miscellaneous Notes* Telephone Encounter - Christo Howard APRN.ALEXA - 10/25/2021 4:05 PM EDT Hold off for now. Christo Howard APRN.CNP * Telephone Encounter - Katie Rosen MA - 10/25/2021 11:01 AM EDT If patient needs labs, please sign/place orders for 10/28/21. Thanks. Katie Rosen MA documented in this encounterUniversity Hospitals Ahuja Medical Center01-01-2015 Evaluation note* Diagnosis Onset Date Resolution Status ASHD (arteriosclerotic heart disease) acute Cervical spondylosis acute Essential hypertension acute Hypercholesterolemia acute Malignant neoplasm of prostate July 17, 2014 acute Nonrheumatic aortic valve stenosis acute GRADY (obstructive sleep apnea) acute Type 2 diabetes mellitus with hyperglycemia acute [facility] Work Phone: Evaluation + Plan note Future Appointments Appointment Date:05/13/2022 08:45:00 AM Scheduled Provider:Anthony SCRUGGS MD Location:[facility] Appointment Type:URO Office Visit Diagnostic Tests Pending * PSA Total 11/08/21 Future Scheduled Tests Laboratory* Basic Metabolic Panel 09/20/21 [facility] evaluation + Plan note Future Appointments Appointment Date:10/28/2022 08:00:00 AM Scheduled Provider:Anthony SCRUGGS MD Location:[facility] Appointment Type:URO Office Visit Diagnostic Tests Pending * PSA Total 09/14/22 Future Scheduled Tests Laboratory* Basic Metabolic Panel 09/20/21 [facility] evaluation + Plan note Future Appointments Appointment Date:10/20/2023 08:45:00 AM Scheduled Provider:Anthony SCRUGGS MD Location:[facility] Appointment Type:URO Office Visit Diagnostic Tests Pending * PSA Total 04/17/23 [facility] evaluation + Plan note Future Appointments Appointment Date:04/19/2024 08:00:00 AM Scheduled Provider:Anthony SCRUGGS MD Location:[facility] Appointment Type:URO Office Visit Diagnostic Tests Pending * PSA Total 02/15/24 [facility] evaluation + Plan note Future Appointments Appointment Date:10/07/2024 09:15:00 AM Scheduled Provider:Anthony SCRUGGS MD Location:[facility] Appointment Type:URO Office Visit Diagnostic Tests Pending * PSA Total 08/17/24 [facility] evaluation note* Diagnosis OPENED IN ERROR- [...] and bone marrow 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, unspecified vessel or lesion type Essential hypertension Unspecified essential hypertension Type 2 diabetes mellitus without complication, without long-term current use of insulin (HCC) [facility] noteNo appEatITWilcox [employer] Other Evaluation note* Diagnosis Malignant neoplasm of prostate (HCC)- Primary Malignant neoplasm of prostate 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, unspecified vessel or lesion type Essential hypertension Unspecified essential hypertension Type 2 diabetes mellitus without complication, without long-term current use of insulin (HCC) [facility]* Diagnosis Malignant neoplasm of prostate (HCC)- Primary Malignant neoplasm of prostate [facility]* Diagnosis Malignant neoplasm of prostate (HCC)- Primary Malignant neoplasm of prostate [facility]* Diagnosis Malignant neoplasm of prostate (HCC)- Primary Malignant neoplasm of prostate 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, unspecified vessel or lesion type Essential hypertension Unspecified essential hypertension Type 2 diabetes mellitus without complication, without long-term current use of insulin (HCC) documented [facility]* Diagnosis Neoplasm of unspecified behavior of bone, soft tissue, and skin Actinic keratosis [facility]* Diagnosis Malignant neoplasm of prostate (HCC)- Primary Malignant neoplasm of prostate [facility]* Diagnosis Malignant neoplasm of prostate (HCC)- Primary Malignant neoplasm of prostate Essential hypertension Unspecified essential hypertension 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, unspecified vessel or lesion type Type 2 diabetes mellitus without complication, without long-term current use of insulin (HCC) Lesion of skin of right ear Abdominal discomfort Abdominal pain, unspecified site documented [facility] this [facility]* Diagnosis Onset Date Resolution Status Cervical spondylosis acute Mass of skin of left shoulder acute Primary osteoarthritis, right shoulder acute Shoulder pain, right acute Neck pain noneactive ASHD (arteriosclerotic heart disease) acute Essential hypertension acute Hypercholesterolemia acute Malignant neoplasm of prostate July 17, 2014 acute Nonrheumatic aortic valve stenosis acute GRADY (obstructive sleep apnea) acute Type 2 diabetes mellitus with hyperglycemia acute [facility] Work Phone: Evaluation note* Diagnosis Malignant neoplasm of prostate (HCC)- Primary Malignant neoplasm of prostate [facility]* Diagnosis Malignant neoplasm of prostate (HCC)- Primary Malignant neoplasm of prostate [facility]* Diagnosis Malignant neoplasm of prostate (HCC)- Primary Malignant neoplasm of prostate documented in this encounter [facility] note* Diagnosis Malignant neoplasm of prostate (HCC)- Primary Malignant neoplasm of prostate documented in this encounter [facility] general Narrative - Reported* Type Description [...] [place] 08[place]2015 Hospitalization History see surgical hx [email or web address] Other History general Narrative - Reported* Type [...] [place] 08/2015 Hospitalization History see surgical hx [email or web address] Other Hospital course Narrative No data available for this section [facility] Hopela progress note No data available for this section [facility] Administered Section Inactive Administered Medications - [...] To Contact Diagnoses Actinic keratosis Long Boo, MARKET RESEARCH ANALYST-GENERAL ROAD FOREMAN [address] [place] [address] Referral ID Status Reason Start Date Expiration Date V isits Requested Visits Authorized [id number] Pending Review 1 1 Reason *FU 06/06 Right fr ontal sinus mass and cerumen impaction Diagnosis 1 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) Diagnosis 2 Impacted cerumen of right ear (H61.21) Referral Organization [facility] Thony lizama Referring Provider First Name Jaamr Referring Provider Last Name Juan David Referring Provider Specialty Internal Me dicine Referred Organization [facility] Referred Provider ChapopapoEmelina pineda Referred Address ,[place], [place],[address] Referred Provider Specialty Ear, Nose an d [...] or prosecute any alcohol or drug abuse patient.[facility] Medical CenterIn the event this information is protected by the Federal Confidentiality of Alcohol and Drug Abuse Patient Records regulations: The Federal rules restrict any use of the information to criminally investigate or prosecute any alcohol or drug abuse patient.[facility] Medical CenterIn the event this information is protected by the Federal Confidentiality of Alcohol and Drug Abuse Patient Records regulations: The Federal rules restrict any use of the information to criminally investigate or prosecute any alcohol or drug abuse patient.[facility] CenterIn the event this information is protected by the Federal Confidentiality of Alcohol and Drug Abuse Patient Records regulations: The Federal rules restrict any use of the information to criminally investigate or prosecute any alcohol or drug abuse patient.[facility] CenterIn the event this information is protected by the Federal Confidentiality of Alcohol and Drug Abuse Patient Records regulations: The Federal rules restrict any use of the information to criminally investigate or prosecute any alcohol or drug abuse patient.[facility] CenterIn the event this information is protected by the Federal Confidentiality of Alcohol and Drug Abuse Patient Records regulations: The Federal rules restrict any use of the information to criminally investigate or prosecute any alcohol or drug abuse patient.[facility] CenterIn the event this information is protected by the Federal Confidentiality of Alcohol and Drug Abuse Patient Records regulations: The Federal rules restrict any use of the information to criminally investigate or prosecute any alcohol or drug abuse patient.[facility] CenterIn the event this information is protected by the Federal Confidentiality of Alcohol and Drug Abuse Patient Records regulations: The Federal rules restrict any use of the information to criminally investigate or prosecute any alcohol or drug abuse patient.[facility] CenterIn the event this information is protected by the Federal Confidentiality of Alcohol and Drug Abuse Patient Records regulations: The Federal rules restrict any use of the information to criminally investigate or prosecute any alcohol or drug abuse patient.[facility] CenterIn the event this information is protected by the Federal Confidentiality of Alcohol and Drug Abuse Patient Records regulations: The Federal rules restrict any use of the information to criminally investigate or prosecute any alcohol or drug abuse patient.[facility] CenterIn the event this information is protected by the Federal Confidentiality of Alcohol and Drug Abuse Patient Records regulations: The Federal rules restrict any use of the information to criminally investigate or prosecute any alcohol or drug abuse patient.[facility] CenterIn the event this information is protected by the Federal Confidentiality of Alcohol and Drug Abuse Patient Records regulations: The Federal rules restrict any use of the information to criminally investigate or prosecute any alcohol or drug abuse patient.[facility] CenterIn the event this information is protected by the Federal Confidentiality of Alcohol and Drug Abuse Patient Records regulations: The Federal rules restrict any use of the information to criminally investigate or prosecute any alcohol or drug abuse patient.[facility] CenterIn the event this information is protected by the Federal Confidentiality of Alcohol and Drug Abuse Patient Records regulations: The Federal rules restrict any use of the information to criminally investigate or prosecute any alcohol or drug abuse patient.[facility] CenterIn the event this information is protected by the Federal Confidentiality of Alcohol and Drug Abuse Patient Records regulations: The Federal rules restrict any use of the information to criminally investigate or prosecute any alcohol or drug abuse patient.[facility] CenterIn the event this information is protected by the Federal Confidentiality of Alcohol and Drug Abuse Patient Records regulations: The Federal rules restrict any use of the information to criminally investigate or prosecute any alcohol or drug abuse patient.[facility] CenterIn the event this information is protected by the Federal Confidentiality of Alcohol and Drug Abuse Patient Records regulations: The Federal rules restrict any use of the information to criminally investigate or prosecute any alcohol or drug abuse patient.[facility] the event this information is protected by the Federal Confidentiality of Alcohol and Drug Abuse Patient Records regulations: The Federal rules restrict any use of the information to criminally investigate or prosecute any alcohol or drug abuse patient.[facility] CenterIn the event this information is protected by the Federal Confidentiality of Alcohol and Drug Abuse Patient Records regulations: The Federal rules restrict any use of the information to criminally investigate or prosecute any alcohol or drug abuse patient.[facility] CenterIn the event this information is protected by the Federal Confidentiality of Alcohol and Drug Abuse Patient Records regulations: The Federal rules restrict any use of the information to criminally investigate or prosecute any alcohol or drug abuse patient.[facility] CenterIn the event this information is protected by the Federal Confidentiality of Alcohol and Drug Abuse Patient Records regulations: The Federal rules restrict any use of the information to criminally investigate or prosecute any alcohol or drug abuse patient.[facility] CenterIn the event this information is protected by the Federal Confidentiality of Alcohol and Drug Abuse Patient Records regulations: The Federal rules restrict any use of the information to criminally investigate or prosecute any alcohol or drug abuse patient.[facility] CenterIn the event this information is protected by the Federal Confidentiality of Alcohol and Drug Abuse Patient Records regulations: The Federal rules restrict any use of the information to criminally investigate or prosecute any alcohol or drug abuse patient.[facility] CenterIn the event this information is protected by the Federal Confidentiality of Alcohol and Drug Abuse Patient Records regulations: The Federal rules restrict any use of the information to criminally investigate or prosecute any alcohol or drug abuse patient.[facility] CenterIn the event this information is protected by the Federal Confidentiality of Alcohol and Drug Abuse Patient Records regulations: The Federal rules restrict any use of the information to criminally investigate or prosecute any alcohol or drug abuse patient.[facility] CenterIn the event this information is protected by the Federal Confidentiality of Alcohol and Drug Abuse Patient Records regulations: The Federal rules restrict any use of the information to criminally investigate or prosecute any alcohol or drug abuse patient.[facility] CenterIn the event this information is protected by the Federal Confidentiality of Alcohol and Drug Abuse Patient Records regulations: The Federal rules restrict any use of the information to criminally investigate or prosecute any alcohol or drug abuse patient.[facility] CenterIn the event this information is protected by the Federal Confidentiality of Alcohol and Drug Abuse Patient Records regulations: The Federal rules restrict any use of the information to criminally investigate or prosecute any alcohol or drug abuse patient.[facility] CenterIn the event this information is protected by the Federal Confidentiality of Alcohol and Drug Abuse Patient Records regulations: The Federal rules restrict any use of the information to criminally investigate or prosecute any alcohol or drug abuse patient.[facility] CenterIn the event this information is protected by the Federal Confidentiality of Alcohol and Drug Abuse Patient Records regulations: The Federal rules restrict any use of the information to criminally investigate or prosecute any alcohol or drug abuse patient.[facility] CenterIn the event this information is protected by the Federal Confidentiality of Alcohol and Drug Abuse Patient Records regulations: The Federal rules restrict any use of the information to criminally investigate or prosecute any alcohol or drug abuse patient.[facility] CenterIn the event this information is protected by the Federal Confidentiality of Alcohol and Drug Abuse Patient Records regulations: The Federal rules restrict any use of the information to criminally investigate or prosecute any alcohol or drug abuse patient.[facility] CenterIn the event this information is protected by the Federal Confidentiality of Alcohol and Drug Abuse Patient Records regulations: The Federal rules restrict any use of the information to criminally investigate or prosecute any alcohol or drug abuse patient.[facility] CenterIn the event this information is protected by the Federal Confidentiality of Alcohol and Drug Abuse Patient Records regulations: The Federal rules restrict any use of the information to criminally investigate or prosecute any alcohol or drug abuse patient.[facility] CenterIn the event this information is protected by the Federal Confidentiality of Alcohol and Drug Abuse Patient Records regulations: The Federal rules restrict any use of the information to criminally investigate or prosecute any alcohol or drug abuse patient.[facility] CenterIn the event this information is protected by the Federal Confidentiality of Alcohol and Drug Abuse Patient Records regulations: The Federal rules restrict any use of the information to criminally investigate or prosecute any alcohol or drug abuse patient.[facility] Care Teams (unrecognized sec tion and content) Shift Supervisor Relationship Specialty Start Date End Date Jamar Fall, DO PCP - General Internal Medicine 08/04/14 Shift Supervisor Relationship Specialty Start Date End Date Jamar Fall, DO PCP - General Internal Medicine 08/04/14 Shift Supervisor Relationship Specialty Start Date End Date Jamar Fall, DO PCP - General Internal Medicine 08/04/14 Shift Supervisor Relationship Specialty Start Date End Date Jamar Fall, DO PCP - General Internal Medicine 08/04/14 Marco A Esqueda MD [address] [place] [address] Physician Hematology/Oncology 11/02/21 Christo Howard, MARKET RESEARCH ANALYST.GENERAL ROAD FOREMAN [address] [place] [address] Nurse Practitioner Hematology/Oncology 11/02/21 Clementine Aguilar, ANITHA [address] [place] [address] Specialty Kitchen Steward Hematology/Oncology 11/02/21 Shift Supervisor Relationship Specialty Start Date End Date Jamar Fall, DO PCP - General Internal Medicine 08/04/14 Marco A Esqueda MD [address] [place] [address] Physician Hematology/Oncology 11/02/21 Christo Howard, MARKET RESEARCH ANALYST.GENERAL ROAD FOREMAN [address] [place] [address] Nurse Practitioner Hematology/Oncology 11/02/21 Clementine Aguilar, RN [address] [place] [place] [address] Specialty Kitchen Steward Hematology/Oncology 11/02/21 Shift Supervisor Relationship Specialty Start Date End Date Jamar Fall, DO PCP - General Internal Medicine 08/04/14 Marco A Esqueda MD [address] [place] [address] Physician Hematology/Oncology 11/02/21 Christo Howard, MARKET RESEARCH ANALYST.GENERAL ROAD FOREMAN [address] [place] [place] [address] Nurse Practitioner Hematology/Oncology 11/02/21 Clementine Aguilar, RN [address] [place] [place] [address] Specialty Kitchen Steward Hematology/Oncology 11/02/21 Shift Supervisor Relationship Specialty Start Date End Date Jamar Fall, DO PCP - General Internal Medicine 08/04/14 Marco A Esqueda MD [address] [place] [address] Physician Hematology/Oncology 11/02/21 Christo Howard, MARKET RESEARCH ANALYST.GENERAL ROAD FOREMAN [address] [place] [place] [address] Nurse Practitioner Hematology/Oncology 11/02/21 Clementine Aguilar, RN [address] [place] [place] [address] Specialty Kitchen Steward Hematology/Oncology 11/02/21 Shift Supervisor Relationship Specialty Start Date End Date Jamar Fall, DO PCP - General Internal Medicine 08/04/14 Marco A Esqueda MD [address] [place] [address] Physician Hematology/Oncology 11/02/21 Christo Howard, MARKET RESEARCH ANALYST.GENERAL ROAD FOREMAN [address] [place] [place] [address] Nurse Practitioner Hematology/Oncology 11/02/21 Clementine Aguilar, ANITHA [address] [place] [place] [address] Specialty Kitchen Steward Hematology/Oncology 11/02/21 Shift Supervisor Relationship Specialty Start Date End Date Jamar Fall, DO PCP - General Internal Medicine 08/04/14 Marco A Esqueda MD [address] [place] [place] [address] Physician Hematology/Oncology 11/02/21 Christo Howard, MARKET RESEARCH ANALYST.GENERAL ROAD FOREMAN [address] [place] [place] [address] Nurse Practitioner Hematology/Oncology 11/02/21 Clementine Aguilar, ANITHA [address] [place] [place] [address] Specialty Kitchen Steward Hematology/Oncology 11/02/21 Shift Supervisor Relationship Specialty Start Date End Date Jamar Fall, DO PCP - General Internal Medicine 08/04/14 Marco A Esqueda MD [address] [place] [address] Physician Hematology/Oncology 11/02/21 Christo Howard, MARKET RESEARCH ANALYST.GENERAL [address] FOREMAN [address] [place] [place] [address] Nurse Practitioner Hematology/Oncology 11/02/21 Clementine Aguilar, RN [address] [place], [place] [id number] Specialty Kitchen Steward Hematology/Oncology 11/02/21 Shift Supervisor Relationship Specialty Start Date End Date Jamar Fall, PCP - General Internal Medicine 08/04/14 Marco A Esqueda MD [address] [place] [address] Physician Hematology/Oncology 11/02/21 Christo Howard, MARKET RESEARCH ANALYST.GENERAL ROAD FOREMAN [address] [place] [address] Nurse Practitioner Hematology/Oncology 11/02/21 Clementine Aguilar, ANITHA [address] [place] [address] Specialty Kitchen Steward Hematology/Oncology 11/02/21 Shift Supervisor Relationship Specialty Start Date End Date Jamar Fall DO PCP - General Internal Medicine 08/04/14 Marco A Esqueda MD [address] [place] [place] [address] Physician Hematology/Oncology 11/02/21 Christo Howard, MARKET RESEARCH ANALYST.GENERAL ROAD FOREMAN [address] [place] [address] Nurse Practitioner Hematology/Oncology 11/02/21 Clementine Aguilar, ANITHA [address] [place] [address] Specialty Kitchen Steward Hematology/Oncology 11/02/21 Shift Supervisor Relationship Specialty Start Date End Date Jamar Fall DO PCP - General Internal Medicine 08/04/14 Marco A Esqueda MD [address] [place] [address] Physician Hematology/Oncology 11/02/21 Christo Howard, MARKET RESEARCH ANALYST.GENERAL ROAD FOREMAN [address] [place] [address] Nurse Practitioner Hematology/Oncology 11/02/21 Clementine Aguilar, RN [address] [place] [address] Specialty Kitchen Steward Hematology/Oncology 11/02/21 Shift Supervisor Relationship Specialty Start Date End Date Jamar Fall, DO PCP - General Internal Medicine 08/04/14 Marco A Esqueda MD [address] [place] [place] [address] Physician Hematology/Oncology 11/02/21 Christo Howard, MARKET RESEARCH ANALYST.GENERAL ROAD FOREMAN [address] [place] [address] Nurse Practitioner Hematology/Oncology 11/02/21 Clementine Aguilar, RN [address] [place] [address] Specialty Kitchen Steward Hematology/Oncology 11/02/21 Shift Supervisor Relationship Specialty Start Date End Date Jamar Fall, DO PCP - General Internal Medicine 08/04/14 Marco A Esqueda MD [address] [place] [place] [address] Physician Hematology/Oncology 11/02/21 Christo Howard, MARKET RESEARCH ANALYST.GENERAL ROAD FOREMAN [address] [facility] [address] [place] [address] Nurse Practitioner Hematology/Oncology 11/02/21 Clementine Aguilar, ANITHA [address] [place] [address] Specialty Kitchen Steward Hematology/Oncology 11/02/21 Shift Supervisor Relationship Specialty Start Date End Date Jamar Fall DO PCP - General Internal Medicine 08/04/14 Marco A Esqueda MD [address] [place] [place] [address] Physician Hematology/Oncology 11/02/21 Christo Howard, MARKET RESEARCH ANALYST.GENERAL ROAD FOREMAN [address] [place] [address] Nurse Practitioner Hematology/Oncology 11/02/21 Clementine Aguilar RN [address] [address] [place] [address] Specialty Kitchen Steward Hematology/Oncology 11/02/21 Shift Supervisor Relationship Specialty Start Date End Date Jamar Fall DO PCP - General Internal Medicine 08/04/14 Marco A Esqueda MD [address] [place] [address] [place] [address] Physician Hematology/Oncology 11/02/21 Christo Howard, MARKET RESEARCH ANALYST.GENERAL ROAD FOREMAN [address] [place] [address] [place] [address] Nurse Practitioner Hematology/Oncology 11/02/21 Clementine Aguilar, RN [address] [place] [place] [address] Specialty Kitchen Steward Hematology/Oncology 11/02/21 Shift Supervisor Relationship Specialty Start Date End Date Jamar Fall DO PCP - General Internal Medicine 08/04/14 Marco A Esqueda MD [address] [address] [place], [place] [id number] Physician Hematology/Oncology 11/02/21 Christo Howard, MARKET RESEARCH ANALYST.GENERAL ROAD FOREMAN [address] [address] [place] [address] Nurse Practitioner Hematology/Oncology 11/02/21 Clementine Aguilar, ANITHA [address] [facility] [address] Specialty Kitchen Steward Hematology/Oncology 11/02/21 Shift Supervisor Relationship Specialty Start Date End Date Jamar Fall DO PCP - General Internal Medicine 08/04/14 Marco A Esqueda MD [address] [place] [place] [address] Physician Hematology/Oncology 11/02/21 Christo Howard, MARKET RESEARCH ANALYST.GENERAL ROAD FOREMAN [address] [facility] [place] [address] Nurse Practitioner Hematology/Oncology 11/02/21 Clementine Aguilar, RN [address] [facility] [address] Specialty Kitchen Steward Hematology/Oncology 11/02/21 Shift Supervisor Relationship Specialty Start Date End Date Jamar Fall DO PCP - General Internal Medicine 08/04/14 Marco A Esqueda MD [address] [facility] [address] [place], [place] [id number] Physician Hematology/Oncology 11/02/21 Christo Howard, MARKET RESEARCH ANALYST.GENERAL ROAD FOREMAN [address] [facility] [place] [address] Nurse Practitioner Hematology/Oncology 11/02/21 Clementine Aguilar, ANITHA [address] [facility] [address] [place] [address] Specialty Kitchen Steward Hematology/Oncology 11/02/21 Shift Supervisor Relationship Specialty Start Date End Date Jamar Fall MD [address] [place] [address] PCP - General Internal Medicine 05/31/23 Shift Supervisor Relationship Specialty Start Date End Date Jamar Fall MD [address] [place] [address] PCP - General Internal Medicine 05/31/23 Shift Supervisor Relationship Specialty Start Date End Date Jamar Fall DO PCP - General Internal Medicine 08/04/14 Marco A Esqueda MD [address] [place] [address] [place] [address] Physician Hematology/Oncology 11/02/21 Christo Howard, MARKET RESEARCH ANALYST.GENERAL ROAD FOREMAN [address] [facility] [place] [address] Nurse Practitioner Hematology/Oncology 11/02/21 Clementine Aguilar, RN [address] [facility] [place] [address] Specialty Kitchen Steward Hematology/Oncology 11/02/21 Shift Supervisor Relationship Specialty Start Date End Date Jamar Fall DO PCP - General Internal Medicine 08/04/14 Marco A Esqueda MD [address] [place] [address] [place] [address] Physician Hematology/Oncology 11/02/[address]GENERAL ROAD FOREMAN [address] [place] [address] [place] [address] Nurse Practitioner Hematology/Oncology 11/02/21 Clementine Aguilar, ANITHA [address] [facility] [place] [place] [address] Specialty Kitchen Steward Hematology/Oncology 11/02/21 Team Status: Active Member Role [...] November 23, 2023 End: November 23, 2023 Shift Supervisor Relationship Specialty Start Date End Date Jamar Fall DO PCP - General Internal Medicine 08/04/14 Marco A Esqueda MD [address] [place] [address] [place] [address] Physician Hematology/Oncology 11/02/21 Christo Howard, MARKET RESEARCH ANALYST.GENERAL ROAD FOREMAN [address] [facility] [place] [address] Nurse Practitioner Hematology/Oncology 11/02/21 Clementine Aguilar, ANITHA [address] [facility] [place] [address] Specialty Kitchen Steward Hematology/Oncology 11/02/21 Shift Supervisor Relationship Specialty Start Date End Date Jamar Fall DO PCP - General Internal Medicine 08/04/14 Marco A Esqueda MD [address] [place] [address] [place] [address] Physician Hematology/Oncology 11/02/21 Christo Howard, MARKET RESEARCH ANALYST.GENERAL ROAD FOREMAN [address] [facility] [place] [address] Nurse Practitioner Hematology/Oncology 11/02/21 Clementine Aguilar, ANITHA [address] [place] [address] Specialty Kitchen Steward Hematology/Oncology 11/02/21 Team Status: Active Member Role Status Dates Jamar Fall DO Primary Care Provider Active Start: January 25, 2024 SAMAN Collins Attending Provider Active Start: January 25, 2024 Team Status: Inactive Member Role Status Dates Jamar Fall DO Primary Care Provide r, Attending Provider Active Start: March 26, 2024 End: March 26, 2024 Shift Supervisor Relationship Specialty Start Date End Date Jamar Fall DO PCP - General Internal Medicine 08/04/14 Marco A Esqueda MD [address] [place] [address] [place] [address] Physician Hematology/Oncology 11/02/21 Christo Howard, MARKET RESEARCH ANALYST.GENERAL ROAD FOREMAN [address] [facility] [place] [place] [address] Nurse Practitioner Hematology/Oncology 11/02/21 Clementine Aguilar, RN [address] [facility] [place] [place] [address] Specialty Kitchen Steward Hematology/Oncology 11/02/21 Shift Supervisor Relationship Specialty Start Date End Date Jaamr Fall DO PCP - General Internal Medicine 08/04/14 Marco A Esqueda MD [address] [facility] [place] [address] Physician Hematology/Oncology 11/02/21 Christo Howard, MARKET RESEARCH ANALYST.GENERAL ROAD FOREMAN [address] [facility] [place] [address] Nurse Practitioner Hematology/Oncology 11/02/21 Clementine Aguilar, ANITHA [address] [facility] [place] [address] Specialty Kitchen Steward Hematology/Oncology 11/02/21 Shift Supervisor Relationship Specialty Start Date End Date Jamar Fall DO PCP - General Internal Medicine 08/04/14 Marco A Esqueda MD [address] [facility] [place] [address] Physician Hematology/Oncology 11/02/21 Christo Howard, MARKET RESEARCH ANALYST.GENERAL ROAD FOREMAN [address] [facility] [place] [address] Nurse Practitioner Hematology/Oncology 11/02/21 Clementine Aguilar, ANITHA [address] [place] [address] [place] [address] Specialty Kitchen Steward Hematology/Oncology 11/02/21 Reason for Visit (unrecogniz ed [...] up Specialty Diagnoses / Procedures Referred By [facility] Referred To Contact Diagnoses Malignant neoplasm of prostate (HCC) Procedures DENOSUMAB INJECTION Marco A Esqueda MD [address] [place] [address] [place] [address] [facility] [place] [place] [address] Referral ID Status Reason Start Date Expiration Date V isits Requested Visits Authorized [id number] Authorized 11/11/2021 07/16/2022 99 99 Reason Comments Care Coordination Refill Question Reason Comments Prostate Cancer 1 month follow up Reason Comments Prostate Cancer Follow up Reason Comments Prostate Cancer 3 month follow up Reason Comments Prostate Cancer Reason Comments Prostate Cancer Follow up Reason Comments Suspicious Skin Lesion Specialty Diagnoses / Procedures Referred By [facility] Referred To Contact Dermatology Diagnoses lesion of skin of R ear Marco A Esqueda MD [address] [place] [address] [place] [address] Lety Holguin MD [address] [place] [address] Referral ID Status Reason Start Date Expiration Date Visits Re quested Visits Authorized [id number] Closed 08/04/2023 01/31/2024 1 1 Reason Comments [...] DATE CREATED AUTHOR AUTHOR'S ORGANIZ ATION 03/02/2024 [facility] DATE CREATED AUTHOR AUTHOR'S ORGANIZ ATION 04/02/2024 [facility] DATE CREATED AUTHOR AUTHOR'S ORGANIZ ATION 04/21/2024 [facility] DATE CREATED AUTHOR AUTHOR'S ORGANIZ ATION 08/04/2024 [facility] Inactive Administered Medications - up to [...] BE BASED ON THE PRIMARY CLINICAL RECORDS. [email or web address] provides no warranty or guarantee of the accuracy or completeness of information in this document."
== END 2024-08-06 09:24 | disposition home or self-care (01) ==
LOC: PM 09:23
PROVIDERS: PCP Family Medicine Adult Medicine; Visit Provider Anesthesiology Pain Medicine
DX: M48.02 Spinal stenosis, cervical region (principal); M47.22 Other spondylosis with radiculopathy, cervical region
CPT/HCPCS: 72050; G0463

== ENCOUNTER 2024-08-06 09:53 | Outpatient (OUT) | payer MEDICARE, OTHER, SELFPAY ==
--- OUTSIDE RECORDS SUMMARY | 2024-08-06 10:08 | XMS_ITS | CCD ---
Author Organization [facility] Care Team Providers Care Funding Coordinator Name Role Phone Jamar Fall DO Primary Care Provider hDeeraj JAMES, Marco A R Unavailable [facility] [employer] ENGINEER.ALEXA, Christo Unavailable [phone] Lauren RN, Clementine Unavailable [phone] JAMAR FALL Primary Care Physician [phone] Jamar Fall DO Primary Care Provider Marco A Esqueda MD R Unavailable [facility] [employer] ENGINEER.ALEXA, Christo Unavailable Lauren WELSH, Clementine Unavailable Jamar Fall DO Primary Care Provider Dheeraj JAMES, Marco A R Unavailable [facility] [employer]INE[employer].PHP DEVELOPER, Christo Unavailable Lauren RN, Clementine Unavailable Jamar Fall Unavailable [...] Consulting Unavailable TAMEKA, LORA Admitting Unavailable TAMEKA, LOAR Attending Unavailable JUAN DAVID, DR ALCARAZ Primary [...] Penicillins; Translations: [PENICILLINS] Drug Allergy 1 Unknown [facility] (20 sources) Penicillin G; Translations: [penicillin G benzathine] Drug Allergy 1 Unknown (qualifier value) [facility] (20 sources) Penicillins Drug Allergy 5 Unknown [facility] (20 sources) Simvastatin; Translations: [SIMVASTATIN] Drug Allergy 2 Unknown [facility] (1 source) Penicillins Drug allergy (disorder) [address] [facility] (1 source) Penicillin Drug Allergy Unknown [facility] Other (1 source) Allergies Reconciled Propensity to adverse reactions Unknown [facility] Other (1 source) patient allergy list reviewed by nurse or physicia Propensity to adverse reactions 9 Comment:Done [facility] Other (3 sources) Simvastatin Propensity to adverse [...] 3:49pm Start: 02-04-2019 take 1 tablet by [facility] th once daily atorvastatin 20 mg Tab [...] sources) Anticholinergic Start: 10-20-2023 ipratropium Nasal 0.06% [place] Refill(s) 0 Start Date: 10/20/23 Status: Ordered [...] 1:00am Start: 08-17-2021 take 1 tablet by [facility] once daily metFORMIN (GLUCOPHAGE) 1,000 mg tablet Take 1,000 mg by mouth once daily. 08/17/2021 Active Start: 08-17-2021 take 2 tablets by [facility] once daily at mealtime metFORMIN (GLUCOPHAGE) 500 mg tablet TAKE 2 TABLETS BY MOUTH ONCE A DAY WITH FOOD 0 08/17/2021 Active Start: 05-14-2021 take 1 mg by mouth twice daily metformin 1000 mg oral tablet mg tab(s), Oral, BID, Refills(s) 0 Start Date: 05/14/21 Status: Ordered take 1 tablet by [facility] at mealtime, then take 1 tablet by mouth every twenty-four hours metFORMIN, OSM, (Fortamet) 500 MG 24 hr tablet Take 500 mg by mouth in the evening. Take with meals. Do not crush, chew, or split. 0 Active metFORMIN HCl 50 0 MG 1 tablet with a meal Active Comment on above: TAKE [address] [facility] ONCE A DAY WITH FOOD Take [...] by mouth twice daily. Take by mouth. Ytyqajrxuuvwa-Ueqsfuvk-Ajwel n (MULTIVITAMIN 50 PLUS) tab (20 sources) [...] Coronary arteriosclerosis; Translations: [Atherosclerotic heart disease of [place] coronary artery without angina pectoris] Onset: 10-10-2014 [...] Basophils (Bld) [#/Vol] 0.03 10*3/uL Normal <0.[address] [facility] Comment on above: Order Comment: Nicanor camilo Type: BLOOD SPECIMEN Ordering Facility: [facility] Address: [address] [place] [address] Performed By: #### 5 7021-8 #### [facility] CLIA [id number] [address] [place] [address] 41332 Basophils/100 WBC (Bld) 0.5 % Normal [facility] Comment on above: Order Comment: Nicanor camilo Type: BLOOD SPECIMEN Ordering Facility: [facility] Address: [address] [place] [address] Performed By: #### 5 7021-8 #### [facility] CLIA [id number] [address] [place] [address] 33724 Differential cell count method Nom (Bld) Auto Normal [facility] Comment on above: Order Comment: Nicanor camilo Type: BLOOD SPECIMEN Ordering Facility: [facility] Address: [address] [place] [address] Performed By: #### 5 7021-8 #### [facility] CLIA [id number] [address] [place] [address] 91985 Eosinophils (Bld) [#/Vol] 0.50 10*3/uL High <0.[address] [facility] Comment on above: Order Comment: Speci men Type: BLOOD SPECIMEN Ordering Facility: [facility] Address: [address] [place] [address] Performed By: #### 5 7021-8 #### [facility] CLIA [id number] [address] [place] [address] 88936 Eosinophils/100 WBC (Bld) 8.5 % Normal [facility] Comment on above: Order Comment: Speci men Type: BLOOD SPECIMEN Ordering Facility: [facility] Address: [address] [place] [address] Performed By: #### 5 7021-8 #### [facility] CLIA [id number] [address] [place] [address] 46373 Erythrocyte distribution width (RBC) [Ratio] 12.7 % Normal 11.5-15.[address] [facility] Comment on above: Order Comment: Speci men Type: BLOOD SPECIMEN Ordering Facility: [facility] Address: [address] [place] [address] Performed By: #### 5 7021-8 #### [facility] CLIA [id number] [address] [place] [address] 15052 Hematocrit (Bld) [Volume fraction] 35.7 % Low 39.0-51.[address] [facility] Comment on above: Order Comment: Speci men Type: BLOOD SPECIMEN Ordering Facility: [facility] Address: [address] [place] [address] Performed By: #### 5 7021-8 #### [facility] CLIA [id number] [address] [place] [address] 12562 Hemoglobin (Bld) [Mass/Vol] 12.2 g/dL Low 13.0-17.[address] [facility] Comment on above: Order Comment: Speci men Type: BLOOD SPECIMEN Ordering Facility: [facility] Address: [address] [place] [address] Performed By: #### 5 7021-8 #### [facility] CLIA [id number] [address] [place] [address] Immature granulocytes (Bld) [#/Vol] 0.04 10*3/uL Normal <0.[address] [facility] Comment on above: Order Comment: Speci men Type: BLOOD SPECIMEN Ordering Facility: [facility] Address: [address] [place] [address] Performed By: #### 5 7021-8 #### [facility] CLIA [id number] [address] [place] [address] 53705 Immature granulocytes/100 WBC (Bld) 0.7 % Normal [facility] Comment on above: Order Comment: Speci men Type: BLOOD SPECIMEN Ordering Facility: [facility] Address: [address] [place] [address] Performed By: #### 5 7021-8 #### [facility] CLIA [id number] [address] [place] [address] 36525 Lymphocytes (Bld) [#/Vol] 1.55 10*3/uL Normal 1.00-4.[address] [facility] Comment on above: Order Comment: Speci men Type: BLOOD SPECIMEN Ordering Facility: [facility] Address: [address] [place] [address] Performed By: #### 5 7021-8 #### [facility] CLIA [id number] [address] [place] [address] 92661 Lymphocytes/100 WBC (Bld) 26.5 % Normal [facility] Comment on above: Order Comment: Speci men Type: BLOOD SPECIMEN Ordering Facility: [facility] Address: [address] [place] [address] Performed By: #### 5 7021-8 #### [facility] CLIA [id number] [address] [place] [address] 61784 MCH (RBC) [Entitic mass] 32.4 pg Normal 26.0-34.[address] [facility] Comment on above: Order Comment: Speci men Type: BLOOD SPECIMEN Ordering Facility: [facility] Address: [address] [place] [address] Performed By: #### 5 7021-8 #### [facility] CLIA [id number] [address] [place] [address] 97528 MCHC (RBC) [Mass/Vol] 34.2 g/dL Normal 30.5-36.[address] [facility] Comment on above: Order Comment: Speci men Type: BLOOD SPECIMEN Ordering Facility: [facility] Address: [address] [place] [address] Performed By: #### 5 7021-8 #### [facility] CLIA [id number] [address] [place] [address] 40997 MCV (RBC) [Entitic vol] 94.9 fL Normal 80.0-100.[address] [facility] Comment on above: Order Comment: Speci men Type: BLOOD SPECIMEN Ordering Facility: [facility] Address: [address] [place] [address] Performed By: #### 5 7021-8 #### [facility] CLIA [id number] [address] [place] [address] 79619 Monocytes (Bld) [#/Vol] 0.55 10*3/uL Normal <0.[address] [facility] Comment on above: Order Comment: Speci men Type: BLOOD SPECIMEN Ordering Facility: [facility] Address: [address] [place] [address] Performed By: #### 5 7021-8 #### [facility] CLIA [id number] [address] [place] [address] 12768 Monocytes/100 WBC (Bld) 9.4 % Normal [facility] Comment on above: Order Comment: Speci men Type: BLOOD SPECIMEN Ordering Facility: [facility] Address: [address] [place] [address] Performed By: #### 5 7021-8 #### [facility] CLIA [id number] [address] [place] [address] 99441 Neutrophils (Bld) [#/Vol] 3.19 10*3/uL Normal 1.45-7.[address] [facility] Comment on above: Order Comment: Speci men Type: BLOOD SPECIMEN Ordering Facility: [facility] Address: [address] [place] [address] Performed By: #### 5 7021-8 #### [facility] CLIA [id number] [address] [place] [address] 78479 Neutrophils/100 WBC (Bld) 54.4 % Normal [facility] Comment on above: Order Comment: Speci men Type: BLOOD SPECIMEN Ordering Facility: [facility] Address: [address] [place], [place] [address] Performed By: #### 5 7021-8 #### [facility] CLIA [id number] [address] [place] [address] 90959 Nucleated RBC (Bld) [#/Vol] 10*3/uL Normal <0.[address] [facility] Comment on above: Order Comment: Speci men Type: BLOOD SPECIMEN Ordering Facility: [facility] Address: [address] [place] [address] Performed By: #### 5 7021-8 #### [facility] CLIA [id number] [address] [place] [address] 45489 Nucleated RBC/100 WBC (Bld) [Ratio] 0.0 /[address] [facility] Comment on above: Order Comment: Speci men Type: BLOOD SPECIMEN Ordering Facility: [facility] Address: [address] [place] [address] Performed By: #### 5 7021-8 #### [facility] CLIA [id number] [address] [place] [address] 11883 Platelet mean volume (Bld) [Entitic vol] 9.4 fL Normal 9.0-12.[address] [facility] Comment on above: Order Comment: Speci men Type: BLOOD SPECIMEN Ordering Facility: [facility] Address: [address] [place] [address] 47006 Performed By: #### 5 7021-8 #### [facility] CLIA [id number] [address] [place] [address] Platelets (Bld) [#/Vol] 177 10*3/uL Normal 150-[address] [facility] Comment on above: Order Comment: Speci men Type: BLOOD SPECIMEN Ordering Facility: [facility] Address: [address] [place] [address] Performed By: #### 5 7021-8 #### [facility] CLIA [id number] [address] [place] [address] 34574 RBC (Bld) [#/Vol] 3.76 10*6/uL Low 4.20-6.00 [facility] Comment on above: Order Comment: Speci men Type: BLOOD SPECIMEN Ordering Facility: [facility] Address: [address] [place] [address] Performed By: #### 5 7021-8 #### [facility] CLIA [id number] [address] [place] [address] 98821 WBC (Bld) [#/Vol] 5.86 10*3/uL Normal 3.70-11.00 [facility] Comment on above: Order Comment: Speci men Type: BLOOD SPECIMEN Ordering Facility: [facility] Address: [address] [place] [address] Performed By: #### 5 7021-8 #### [facility] CLIA [id number] [address] [place] [address] 75148 Comprehensive metabolic 2000 panelon 08-01-2024 Albumin [Mass/Vol] 4.2 g/dL Normal 3.9-4.9 [facility] Comment on above: Order Comment: Speci men Type: BLOOD SPECIMEN Ordering Facility: [facility] Address: [address] [place] [address] 92871 Performed By: #### 5 7021-8 #### [facility] CLIA [id number] [address] [place] [address] 93375 ALP [Catalytic activity/Vol] 75 U/L Normal 38-[address] [facility] Comment on above: Order Comment: Speci men Type: BLOOD SPECIMEN Ordering Facility: [facility] Address: [address] [place] [address] Performed By: #### 5 7021-8 #### [facility] CLIA [id number] [address] [place] [address] ALT [Catalytic activity/Vol] 17 U/L Normal 10-[address] [facility] Comment on above: Order Comment: Speci men Type: BLOOD SPECIMEN Ordering Facility: [facility] Address: [address] [place] [id number] Performed By: #### 5 7021-8 #### [facility] CLIA [id number] [address] [place] [address] Anion gap [Moles/Vol] 11 mmol/L Normal 8-[address] [facility] Comment on above: Order Comment: Speci men Type: BLOOD SPECIMEN Ordering Facility: [facility] Address: [address] [place] [address] Performed By: #### 5 7021-8 #### [facility] CLIA [id number] [address] [place] [address] 86462 AST [Catalytic activity/Vol] 17 U/L Normal 14-[address] [facility] Comment on above: Order Comment: Speci men Type: BLOOD SPECIMEN Ordering Facility: [facility] Address: [address] [place] [id number] Performed By: #### 5 7021-8 #### [facility] CLIA [id number] [address] [place] [address] 92080 Bilirubin [Mass/Vol] 0.6 mg/dL Normal 0.2-1.[address] [facility] Comment on above: Order Comment: Speci men Type: BLOOD SPECIMEN Ordering Facility: [facility] Address: [facility] [place] [address] Performed By: #### 5 7021-8 #### [facility] CLIA [id number] [address] [place] [address] 34078 Calcium [Mass/Vol] 10.3 mg/dL High 8.5-10.2 [facility] Comment on above: Order Comment: Speci men Type: BLOOD SPECIMEN Ordering Facility: [facility] Address: [address] [place] [address] Performed By: #### 5 7021-8 #### [facility] CLIA [id number] [address] [place] [address] Chloride [Moles/Vol] 100 mmol/L Normal 98-[address] [facility] Comment on above: Order Comment: Speci men Type: BLOOD SPECIMEN Ordering Facility: [facility] Address: [address] [place] [address] Performed By: #### 5 7021-8 #### [facility] CLIA [id number] [address] [place] [address] 16106 CO2 [Moles/Vol] 26 mmol/L Normal 22-[address] [facility] Comment on above: Order Comment: Speci men Type: BLOOD SPECIMEN Ordering Facility: [facility] Address: [address] [place] [address] Performed By: #### 5 7021-8 #### [facility] CLIA [id number] [address] [place] [address] 67938 Creatinine [Mass/Vol] 0.81 mg/dL Normal 0.73-1.[address] [facility] Comment on above: Order Comment: Speci men Type: BLOOD SPECIMEN Ordering Facility: [facility] Address: [address] [place] [address] Performed By: #### 5 7021-8 #### [facility] CLIA [id number] [address] [place] [address] 16593 Creatinine and Glomerular filtration rate.predicted panel (S/P/Bld) 90 mL/min/1.73m??? Normal >=[address] [facility] Comment on above: Order Comment: Speci men Type: BLOOD SPECIMEN Ordering Facility: [facility] Address: [address] [place], [place] [address] Result Comment: Renae mated Glomerular Filtration Rate [...] GFR. Performed By: #### 5 7021-8 #### [facility] CLIA [id number] [address] [place] [address] Glucose [Mass/Vol] 119 mg/dL High 74-99 [facility] Comment on above: Order Comment: Nicanor camilo Type: BLOOD SPECIMEN Ordering Facility: [facility] Address: [address] [place] [address] Result Comment: The [place] [employer] (ADA) provides guidance for cutoff [...] Standards of Medical Care in Diabetes 2016, [place] [employer]. Diabetes Care. 2016.39(Suppl 1). Performed By: #### 5 7021-8 #### [facility] CLIA [id number] [address] [place] [address] 53941 Potassium [Moles/Vol] 4.8 mmol/L Normal 3.7-5.[address] [facility] Comment on above: Order Comment: Nicanor camilo Type: BLOOD SPECIMEN Ordering Facility: [facility] Address: [address] [place] [address] Performed By: #### 5 7021-8 #### [facility] CLIA [id number] [address] [place] [address] Protein [Mass/Vol] 6.3 g/dL Normal 6.3-8.0 [facility] Comment on above: Order Comment: Nicanor camilo Type: BLOOD SPECIMEN Ordering Facility: [facility] Address: [address] [place] [address] Performed By: #### 5 7021-8 #### [facility] CLIA [id number] [address] [place] [address] 63017 Sodium [Moles/Vol] 137 mmol/L Normal 136-144 [facility] Comment on above: Order Comment: Speci men Type: BLOOD SPECIMEN Ordering Facility: [facility] Address: [address] [place] [address] Performed By: #### 5 7021-8 #### [facility] CLIA [id number] [address] [place] [address] 56742 Urea nitrogen [Mass/Vol] 14 mg/dL Normal 9-[address] [facility] Comment on above: Order Comment: Speci men Type: BLOOD SPECIMEN Ordering Facility: [facility] Address: [address] [place] [address] Performed By: #### 5 7021-8 #### [facility] CLIA [id number] [address] [place], [place] [address] PSA [facility] Prostate specific Ag [Mass/Vol] 0.19 ng/mL Normal <2.[address] [facility] Comment on above: Order Comment: Speci men Type: BLOOD SPECIMEN Ordering Facility: [facility] Address: [address] [place] [address] Result Comment: Tota l PSA test methodology used is the Electrochemiluminescence Immunoassay by [employer]. Total PSA values by differing methodologies cannot be interchanged. Performed By: #### 2 857-1 #### [facility] CLIA [id number] [address] [place], [place] [address] [address] [facility] CNOVSPon 05-09-2024 CNOVSP Visit (SP) Office ([facility]) PABLO FELIX ([id number]) 1945 M Date Time Provider Department 05/09/24 9:15 AM MARCO A ESQUEDA During your visit today, we recorded the following information about you: Temperature Pulse Respiration Blood pressure 97.3 degrees 62/minute 16/minute 141/62 Weight 92.1 kg Marco A Esqueda MD 05/10/2024 7:40 AM Signed PATIENT NAME: Pablo Felix DATE: 05/09/2024 PRIMARY CARE PHYSICIAN: Dr. Jamar Fall OTHER PHYSICIANS: Dr. Anthony Scruggs, Dr. Khan, [facility] Cardiology Portions of this encounter [...] mg 24 hr tablet Take by mouth. Vpmhnmdkjslvy-Aosvaxdo-Wbdd in (MULTIVITAMIN 50 PLUS) tab Take 1 [...] Radical retropubic prostatectomy and bilateral pelvic lymphadenectomy (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 Left base margin positive for neoplasm. Seminal vesicles with no diagnostic abnormality. 2 resected lymph nodes negative for neoplasm. LABS: Hemoglobin (g/dL) Date Value 05/03/2024 11.5 05/08/2018 12.8 Hematocrit (%) Date Value 05/03/2024 33.2 05/08/2018 36.8 WBC (k/uL) Date Value 1 (more content not included)... Normal [facility] CBC W Auto Differential pane l (Bld)on 05-03-2024 Basophils (Bld) [#/Vol] 0.03 10*3/uL Normal <0.[address] [facility] Comment on above: Order Comment: Speci men Type: BLOOD SPECIMEN Ordering Facility: [facility] Address: [address] [place] [address] Performed By: #### 5 7021-8 #### [facility] CLIA [id number] [address] [place] [address] 01971 Basophils/100 WBC (Bld) 0.5 % Normal [facility] Comment on above: Order Comment: Speci men Type: BLOOD SPECIMEN Ordering Facility: [facility] Address: [address] [place] [address] Performed By: #### 5 7021-8 #### [facility] CLIA [id number] [address] [place] [address] 38899 Differential cell count method Nom (Bld) Auto Normal [facility] Comment on above: Order Comment: Speci men Type: BLOOD SPECIMEN Ordering Facility: [facility] Address: [address] [place] [address] Performed By: #### 5 7021-8 #### [facility] CLIA [id number] [address] [place] [address] 39867 Eosinophils (Bld) [#/Vol] 0.48 10*3/uL High <0.[address] [facility] Comment on above: Order Comment: Speci men Type: BLOOD SPECIMEN Ordering Facility: [facility] Address: [address] [place] [address] Performed By: #### 5 7021-8 #### [facility] CLIA [id number] [address] [place] [address] 41672 Eosinophils/100 WBC (Bld) 8.0 % Normal [facility] Comment on above: Order Comment: Speci men Type: BLOOD SPECIMEN Ordering Facility: [facility] Address: [address] [place] [address] Performed By: #### 5 7021-8 #### [facility] CLIA [id number] [address] [place] [address] 27796 Erythrocyte distribution width (RBC) [Ratio] 12.6 % Normal 11.5-15.[address] [facility] Comment on above: Order Comment: Speci men Type: BLOOD SPECIMEN Ordering Facility: [facility] Address: [address] [place] [address] Performed By: #### 5 7021-8 #### [facility] CLIA [id number] [address] [place] [address] 05829 Hematocrit (Bld) [Volume fraction] 33.2 % Low 39.0-51.[address] [facility] Comment on above: Order Comment: Speci men Type: BLOOD SPECIMEN Ordering Facility: [facility] Address: [address] [place] [address] Performed By: #### 5 7021-8 #### [facility] CLIA [id number] [address] [place] [address] 55113 Hemoglobin (Bld) [Mass/Vol] 11.5 g/dL Low 13.0-17.[address] [facility] Comment on above: Order Comment: Speci men Type: BLOOD SPECIMEN Ordering Facility: [facility] Address: [address] [place] [address] Performed By: #### 5 7021-8 #### [facility] CLIA [id number] [address] [place] [address] 49408 Immature granulocytes (Bld) [#/Vol] 0.04 10*3/uL Normal <0.[address] [facility] Comment on above: Order Comment: Speci men Type: BLOOD SPECIMEN Ordering Facility: [facility] Address: [address] [place] [address] Performed By: #### 5 7021-8 #### [facility] CLIA [id number] [address] [place] [address] 08584 Immature granulocytes/100 WBC (Bld) 0.7 % Normal [facility] Comment on above: Order Comment: Speci men Type: BLOOD SPECIMEN Ordering Facility: [facility] Address: [address] [place] [address] Performed By: #### 5 7021-8 #### [facility] CLIA [id number] [address] [place] [address] 61067 Lymphocytes (Bld) [#/Vol] 1.76 10*3/uL Normal 1.00-4.[address] [facility] Comment on above: Order Comment: Speci men Type: BLOOD SPECIMEN [facility] [facility] Address: [address] [place] [address] Performed By: #### 5 7021-8 #### [facility] CLIA [id number] [address] [place] [address] 99549 Lymphocytes/100 WBC (Bld) 29.4 % Normal [facility] Comment on above: Order Comment: Speci men Type: BLOOD SPECIMEN Ordering Facility: [facility] Address: [address] [place] [address] Performed By: #### 5 7021-8 #### [facility] CLIA [id number] [address] [place] [address] 97358 MCH (RBC) [Entitic mass] 33.0 pg Normal 26.0-34.[address] [facility] Comment on above: Order Comment: Speci men Type: BLOOD SPECIMEN Ordering Facility: [facility] Address: [address] [place] [address] Performed By: #### 5 7021-8 #### [facility] CLIA [id number] [address] [place] [address] MCHC (RBC) [Mass/Vol] 34.6 g/dL Normal 30.5-36.[address] [facility] Comment on above: Order Comment: Speci men Type: BLOOD SPECIMEN Ordering Facility: [facility] Address: [address] [place] [address] Performed By: #### 5 7021-8 #### [facility] CLIA [id number] [address] [place] [address] 17505 MCV (RBC) [Entitic vol] 95.1 fL Normal 80.0-100.[address] [facility] Comment on above: Order Comment: Speci men Type: BLOOD SPECIMEN Ordering Facility: [facility] Address: [address] [place] [address] Performed By: #### 5 7021-8 #### [facility] CLIA [id number] [address] [place] [address] 91548 Monocytes (Bld) [#/Vol] 0.48 10*3/uL Normal <0.[address] [facility] Comment on above: Order Comment: Speci men Type: BLOOD SPECIMEN Ordering Facility: [facility] Address: [address] [place] [address] Performed By: #### 5 7021-8 #### [facility] CLIA [id number] [address] [place] [address] 49295 Monocytes/100 WBC (Bld) 8.0 % Normal [facility] Comment on above: Order Comment: Speci men Type: BLOOD SPECIMEN Ordering Facility: [facility] Address: [address] [place] [address] Performed By: #### 5 7021-8 #### [facility] CLIA [id number] [address] [place] [address] 69373 Neutrophils (Bld) [#/Vol] 3.19 10*3/uL Normal 1.45-7.[address] [facility] Comment on above: Order Comment: Speci men Type: BLOOD SPECIMEN Ordering Facility: [facility] Address: [address] [place] [address] Performed By: #### 5 7021-8 #### [facility] CLIA [id number] [address] [place] [address] 55574 Neutrophils/100 WBC (Bld) 53.4 % Normal [facility] Comment on above: Order Comment: Speci men Type: BLOOD SPECIMEN Ordering Facility: [facility] Address: [address] [place] [address] Performed By: #### 5 7021-8 #### [facility] CLIA [id number] [address] [place] [address] Nucleated RBC (Bld) [#/Vol] 10*3/uL Normal <0.[address] [facility] Comment on above: Order Comment: Speci men Type: BLOOD SPECIMEN Ordering Facility: [facility] Address: [address] [place] [address] Performed By: #### 5 7021-8 #### [facility] CLIA [id number] [address] [place] [address] 04319 Nucleated RBC/100 WBC (Bld) [Ratio] 0.0 /[address] [facility] Comment on above: Order Comment: Speci men Type: BLOOD SPECIMEN Ordering Facility: [facility] Address: [address] [place] [address] Performed By: #### 5 7021-8 #### [facility] CLIA [id number] [address] [place] [address] 71328 Platelet mean volume (Bld) [Entitic vol] 9.3 fL Normal 9.0-12.[address] [facility] Comment on above: Order Comment: Speci men Type: BLOOD SPECIMEN Ordering Facility: [facility] Address: [address] [place] [address] Performed By: #### 5 7021-8 #### [facility] CLIA [id number] [address] [place] [address] 88110 Platelets (Bld) [#/Vol] 192 10*3/uL Normal 150-[address] [facility] Comment on above: Order Comment: Speci men Type: BLOOD SPECIMEN Ordering Facility: [facility] Address: [address] [place] [address] 9[address]09 Performed By: #### 5 7021-8 #### [facility] CLIA [id number] [address] [place] [address] 07668 RBC (Bld) [#/Vol] 3.49 10*6/uL Low 4.20-6.00 [facility] Comment on above: Order Comment: Speci men Type: BLOOD SPECIMEN Ordering Facility: [facility] Address: [address] [place] [address] Performed By: #### 5 7021-8 #### [facility] CLIA [id number] [address] [place] [address] 90229 WBC (Bld) [#/Vol] 5.98 10*3/uL Normal 3.70-11.00 [facility] Comment on above: Order Comment: Speci men Type: BLOOD SPECIMEN Ordering Facility: [facility] Address: [address] [place] [address] 51421 Performed By: #### 5 7021-8 #### [facility] CLIA [id number] [address] [place] [address] 60897 Comprehensive metabolic 2000 panelon 05-03-2024 Albumin [Mass/Vol] 3.9 g/dL Normal 3.9-4.9 [facility] Comment on above: Order Comment: Speci men Type: BLOOD SPECIMEN Ordering Facility: [facility] Address: [address] [place] [address] Performed By: #### 5 7021-8 #### [facility] CLIA [id number] [address] [place] [address] 30627 ALP [Catalytic activity/Vol] 71 U/L Normal 38-[address] [facility] Comment on above: Order Comment: Speci men Type: BLOOD SPECIMEN Ordering Facility: [facility] Address: [address] [place] [address] 9[address]30 Performed By: #### 5 7021-8 #### [facility] CLIA [id number] [address] [place] [address] ALT [Catalytic activity/Vol] 16 U/L Normal 10-[address] [facility] Comment on above: Order Comment: Speci men Type: BLOOD SPECIMEN Ordering Facility: [facility] Address: [address] [place] [address] Performed By: #### 5 7021-8 #### [facility] CLIA [id number] [address] [place] [address] Anion gap [Moles/Vol] 9 mmol/L Normal 8-[address] [facility] Comment on above: Order Comment: Speci men Type: BLOOD SPECIMEN Ordering Facility: [facility] Address: [address] [place] [address] 96153 Performed By: #### 5 7021-8 #### [facility] CLIA [id number] [address] [place] [address] 97148 AST [Catalytic activity/Vol] 17 U/L Normal 14-[address] [facility] Comment on above: Order Comment: Speci men Type: BLOOD SPECIMEN Ordering Facility: [facility] Address: [address] [place] [address] 80582 Performed By: #### 5 7021-8 #### [facility] CLIA [id number] [address] [place] [address] 06448 Bilirubin [Mass/Vol] 0.5 mg/dL Normal 0.2-1.[address] [facility] Comment on above: Order Comment: Speci men Type: BLOOD SPECIMEN Ordering Facility: [facility] Address: [address] [place] [address] Performed By: #### 5 7021-8 #### [facility] CLIA [id number] [address] [place] [address] 97591 Calcium [Mass/Vol] 9.5 mg/dL Normal 8.5-10.2 [facility] Comment on above: Order Comment: Speci men Type: BLOOD SPECIMEN Ordering Facility: [facility] Address: [address] [place] [address] Performed By: #### 5 7021-8 #### [facility] CLIA [id number] [address] [place] [address] Chloride [Moles/Vol] 104 mmol/L Normal 98-[address] [facility] Comment on above: Order Comment: Speci men Type: BLOOD SPECIMEN Ordering Facility: [facility] Address: [address] [place] [address] Performed By: #### 5 7021-8 #### [facility] CLIA [id number] [address] [place] [address] 49117 CO2 [Moles/Vol] 26 mmol/L Normal 22-[address] [facility] Comment on above: Order Comment: Speci men Type: BLOOD SPECIMEN Ordering Facility: [facility] Address: [address] [place] [address] Performed By: #### 5 7021-8 #### [facility] CLIA [id number] [address] [place] [address] 82758 Creatinine [Mass/Vol] 0.88 mg/dL Normal 0.73-1.[address] [facility] Comment on above: Order Comment: Speci men Type: BLOOD SPECIMEN Ordering Facility: [facility] Address: [address] [place] [address] Performed By: #### 5 7021-8 #### [facility] CLIA [id number] [address] [place] [address] 52908 Creatinine and Glomerular filtration rate.predicted panel (S/P/Bld) 88 mL/min/1.73m??? Normal >=[address] [facility] Comment on above: Order Comment: Speci men Type: BLOOD SPECIMEN Ordering Facility: [facility] Address: [address] [place], [place] [address] Result Comment: Renae mated Glomerular Filtration Rate [...] GFR. Performed By: #### 5 7021-8 #### [facility] CLIA [id number] [address] [place] [address] 65362 Glucose [Mass/Vol] 106 mg/dL High 74-99 [facility] Comment on above: Order Comment: Nicanor camilo Type: BLOOD SPECIMEN Ordering Facility: [facility] Address: [address] [place] [address] 49706 Result Comment: The [employer] [place] [employer] (ADA) provides guidance for cutoff [...] Standards of Medical Care in Diabetes 2016, [place] [employer]. Diabetes Care. 2016.39(Suppl 1). Performed By: #### 5 7021-8 #### [facility] CLIA [id number] [address] [place] [address] 18819 Potassium [Moles/Vol] 5.6 mmol/L High 3.7-5.[address] [facility] Comment on above: Order Comment: Nicanor camilo Type: BLOOD SPECIMEN Ordering Facility: [facility] Address: [address] [place] [address] Performed By: #### 5 7021-8 #### [facility] CLIA [id number] [address] [place] [address] 76767 Protein [Mass/Vol] 6.3 g/dL Normal 6.3-8.0 [facility] Comment on above: Order Comment: Nicanor camilo Type: BLOOD SPECIMEN Ordering Facility: [facility] Address: [address] [place] [address] Performed By: #### 5 7021-8 #### [facility] CLIA [id number] [address] [place] [address] Sodium [Moles/Vol] 139 mmol/L Normal 136-144 [facility] Comment on above: Order Comment: Speci men Type: BLOOD SPECIMEN Ordering Facility: [facility] Address: [address] [place] [address] Performed By: #### 5 7021-8 #### [facility] CLIA [id number] [address] [place], [place] [address] Urea nitrogen [Mass/Vol] 19 mg/dL Normal 9-[address] [facility] Comment on above: Order Comment: Speci men Type: BLOOD SPECIMEN Ordering Facility: [facility] Address: [address] [place] [address] Performed By: #### 5 7021-8 #### [facility] CLIA [id number] [address] [place], [place] [address] PSA [facility] 05-03-2024 Prostate specific Ag [Mass/Vol] 0.18 ng/mL Normal <2.[address] [facility] Comment on above: Order Comment: Speci men Type: BLOOD SPECIMEN Ordering Facility: [facility] Address: [address] [place] [address] Result Comment: Tota l PSA test methodology used is the Electrochemiluminescence Immunoassay by [employer]. Total PSA values by differing methodologies cannot be interchanged. Performed By: #### 5 7021-8 #### [facility] CLIA [id number] [address] [place], [place] [address] Ambulatory Visit Summaryon 1 Ambulatory Visit Summary [...] mg Tab) ipratropium nasal (ipratropium Nasal 0.06% [place]) metformin (metformin 1000 mg oral tablet) metoprolol [...] Anthony SCRUGGS MD Where: [facility] [phone]- You Need to Schedule the Following Appointments Follow Up with Anthony SCRUGGS MD, URL When: Where: [address] [place] [address]- Medications What How Much When Instructions Unchanged [...] concerns Unchanged ipratropium nasal (ipratropium Nasal 0.06% [place]) Contact prescribing physician if questions or concerns [...] Trouble st (more content not included)... 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 [place] 9 (5+4), pT2b, N0, Mo. Last Lupron administered 04/2022. Taking Xtandi 160mg qd and Xgeva q3mos. Last seen by [facility] oncology 02/02/24. Plan at that time [...] Contact Information KAEL JAMES, Anthony Lee, URL [address] [place], [place] [address]- Additional Instructions: 6 mos w/ PSA and [...] hydrochlorothiazide-lisinop ril (more content not included)... Normal [facility] Comment on above: Result Comment: Elec tronically Signed By: Anthony SCRUGGS MD\.br\Date and Time Signed: 04/19/24 08:47 EDT\.br\Electronically Co-Signed By: Olamide Ureña\.br\Date and Time Co-Signed: 04/19/24 08:45 EDT Office Visiton 03-29-2024 Follow-up visit [id number] Pablo Felix 1945 M Date Provider Department Center 03/29/2024 [facility] Family History Problem Relation Age of Onset Coronary artery disease Father Family Status - Relation Status Age at Father Level of Service:39476 SC OFFICE/OUTPATIENT ESTABLISHED MOD MDM 30 MIN [facility] CNOVSPon 02-02-2024 CNOVSP Visit (SP) Office (H EMASA) PABLO FELIX ([id number]) 1945 M Date Time Provider Department 02/02/24 [...] OTHER PHYSICIANS: Dr. Anthony Scruggs, Dr. Khan, [facility] Cardiology This note was copied [...] mg 24 hr tablet Take by mouth. Sodenbjfauzdo-Jkzyunme-Apoc in (MULTIVITAMIN 50 PLUS) tab Take 1 [...] Radical retropubic prostatectomy and bilateral pelvic lymphadenectomy (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 Left base margin positive for neoplasm. Seminal vesicles with no diagnostic abnormality. 2 resected lymph nodes negative for neoplasm. LABS: Hemoglobin (g/dL) Date [place] (more content not included)... Normal [facility] Basophils Auto (Bld) [#/Vol] on 01-25-2024 Basophils (Bld) [#/Vol] 0.04 10*3/uL <0.11 [facility] Basophils/100 WBC Auto (Bld) on 01-25-2024 Basophils/100 WBC (Bld) 0.6 % [facility] Blood manual differential co mment interpretation narrativeon 01-25-2024 Manual differential comment [place] (Bld) [Interp] Auto [facility] CBC W Auto Differential pane l (Bld)on 01-25-2024 Basophils (Bld) [#/Vol] 0.04 10*3/uL Normal <0.[address] [facility] Comment on above: Order Comment: Speci men Type: BLOOD SPECIMEN Ordering Facility: [facility] Address: [address] [place] [address] Performed By: #### 5 7021-8 #### [facility] CLIA [id number] [address] [place] [address] Basophils/100 WBC (Bld) 0.6 % Normal [facility] Comment on above: Order Comment: Speci men Type: BLOOD SPECIMEN Ordering Facility: [facility] Address: [address] [place] [address] Performed By: #### 5 7021-8 #### [facility] CLIA [id number] [address] [place] [address] 40295 Differential cell count method Nom (Bld) Auto Normal [facility] Comment on above: Order Comment: Speci men Type: BLOOD SPECIMEN Ordering Facility: [facility] Address: [address] [place] [address] Performed By: #### 5 7021-8 #### [facility] CLIA [id number] [address] [place] [address] Eosinophils (Bld) [#/Vol] 0.40 10*3/uL Normal <0.[address] [facility] Comment on above: Order Comment: Speci men Type: BLOOD SPECIMEN Ordering Facility: [facility] Address: [address] [place] [address] Performed By: #### 5 7021-8 #### [facility] CLIA [id number] [address] [place] [address] Eosinophils/100 WBC (Bld) 5.9 % Normal [facility] Comment on above: Order Comment: Speci men Type: BLOOD SPECIMEN Ordering Facility: [facility] Address: [address] [place] [address] Performed By: #### 5 7021-8 #### [facility] CLIA [id number] [address] [place] [address] 91857 Erythrocyte distribution width (RBC) [Ratio] 12.7 % Normal 11.5-15.[address] [facility] Comment on above: Order Comment: Speci men Type: BLOOD SPECIMEN Ordering Facility: [facility] Address: [address] [place] [address] Performed By: #### 5 7021-8 #### [facility] CLIA [id number] [address] [place] [address] 38013 Hematocrit (Bld) [Volume fraction] 34.6 % Low 39.0-51.[address] [facility] Comment on above: Order Comment: Speci men Type: BLOOD SPECIMEN Ordering Facility: [facility] Address: [address] [place] [address] Performed By: #### 5 7021-8 #### [facility] CLIA [id number] [address] [place] [address] 02775 Hemoglobin (Bld) [Mass/Vol] 11.8 g/dL Low 13.0-17.[address] [facility] Comment on above: Order Comment: Speci men Type: BLOOD SPECIMEN Ordering Facility: [facility] Address: [address] [place] [address] Performed By: #### 5 7021-8 #### [facility] CLIA [id number] [address] [place] [address] 17948 Immature granulocytes (Bld) [#/Vol] 0.07 10*3/uL Normal <0.[address] [facility] Comment on above: Order Comment: Speci men Type: BLOOD SPECIMEN Ordering Facility: [facility] Address: [address] [place] [address] Performed By: #### 5 7021-8 #### [facility] CLIA [id number] [address] [place] [address] 00557 Immature granulocytes/100 WBC (Bld) 1.0 % Normal [facility] Comment on above: Order Comment: Speci men Type: BLOOD SPECIMEN Ordering Facility: [facility] Address: [address] [place] [address] Performed By: #### 5 7021-8 #### [facility] CLIA [id number] [address] [place] [address] 78528 Lymphocytes (Bld) [#/Vol] 2.16 10*3/uL Normal 1.00-4.[address] [facility] Comment on above: Order Comment: Speci men Type: BLOOD SPECIMEN Ordering Facility: [facility] Address: [address] [place] [address] Performed By: #### 5 7021-8 #### [facility] CLIA [id number] [address] [place] [address] 64198 Lymphocytes/100 WBC (Bld) 31.8 % Normal [facility] Comment on above: Order Comment: Speci men Type: BLOOD SPECIMEN Ordering Facility: [facility] Address: [address] [place] [address] Performed By: #### 5 7021-8 #### [facility] CLIA [id number] [address] [place] [address] 89595 MCH (RBC) [Entitic mass] 32.2 pg Normal 26.0-34.[address] [facility] Comment on above: Order Comment: Speci men Type: BLOOD SPECIMEN Ordering Facility: [facility] Address: [address] [place] [address] Performed By: #### 5 7021-8 #### [facility] CLIA [id number] [address] [place] [address] 94677 MCHC (RBC) [Mass/Vol] 34.1 g/dL Normal 30.5-36.[address] [facility] Comment on above: Order Comment: Speci men Type: BLOOD SPECIMEN Ordering Facility: [facility] Address: [address] [place] [address] Performed By: #### 5 7021-8 #### [facility] CLIA [id number] [address] [place] [address] 46121 MCV (RBC) [Entitic vol] 94.3 fL Normal 80.0-100.[address] [facility] Comment on above: Order Comment: Speci men Type: BLOOD SPECIMEN Ordering Facility: [facility] Address: [address] [place] [address] 99792 Performed By: #### 5 7021-8 #### [facility] CLIA [id number] [address] [place] [address] 37799 Monocytes (Bld) [#/Vol] 0.60 10*3/uL Normal <0.[address] [facility] Comment on above: Order Comment: Speci men Type: BLOOD SPECIMEN Ordering Facility: [facility] Address: [address] [place] [address] 92984 Performed By: #### 5 7021-8 #### [facility] CLIA [id number] [address] [place] [address] 80081 Monocytes/100 WBC (Bld) 8.8 % Normal [facility] Comment on above: Order Comment: Speci men Type: BLOOD SPECIMEN Ordering Facility: [facility] Address: [address] [place] [address] 12313 Performed By: #### 5 7021-8 #### [facility] CLIA [id number] [address] [place] [address] Neutrophils (Bld) [#/Vol] 3.53 10*3/uL Normal 1.45-7.[address] [facility] Comment on above: Order Comment: Speci men Type: BLOOD SPECIMEN Ordering Facility: [facility] Address: [address] [place] [address] 75428 Performed By: #### 5 7021-8 #### [facility] CLIA [id number] [address] [place] [address] 56361 Neutrophils/100 WBC (Bld) 51.9 % Normal [facility] Comment on above: Order Comment: Speci men Type: BLOOD SPECIMEN Ordering Facility: [facility] Address: [address] [place] [address] 28140 Performed By: #### 5 7021-8 #### [facility] CLIA [id number] [address] [place] [address] 50981 Nucleated RBC (Bld) [#/Vol] 10*3/uL Normal <0.[address] [facility] Comment on above: Order Comment: Speci men Type: BLOOD SPECIMEN Ordering Facility: [facility] Address: [address] [place] [address] 78677 Performed By: #### 5 7021-8 #### [facility] CLIA [id number] [address] [place] [address] 83986 Nucleated RBC/100 WBC (Bld) [Ratio] 0.0 /[address] [facility] Comment on above: Order Comment: Speci men Type: BLOOD SPECIMEN Ordering Facility: [facility] Address: [address] [place] [address] 26432 Performed By: #### 5 7021-8 #### [facility] CLIA [id number] [address] [place] [address] 68601 Platelet mean volume (Bld) [Entitic vol] 10.3 fL Normal 9.0-12.[address] [facility] Comment on above: Order Comment: Speci men Type: BLOOD SPECIMEN Ordering Facility: [facility] Address: [address] [place] [address] Performed By: #### 5 7021-8 #### [facility] CLIA [id number] [address] [place] [address] 47557 Platelets (Bld) [#/Vol] 184 10*3/uL Normal 150-[address] [facility] Comment on above: Order Comment: Speci men Type: BLOOD SPECIMEN Ordering Facility: [facility] Address: [address] [place] [address] Performed By: #### 5 7021-8 #### [facility] CLIA [id number] [address] [place] [address] 18488 RBC (Bld) [#/Vol] 3.67 10*6/uL Low 4.20-6.00 [facility] Comment on above: Order Comment: Speci men Type: BLOOD SPECIMEN Ordering Facility: [facility] Address: [address] [place] [address] Performed By: #### 5 7021-8 #### [facility] CLIA [id number] [address] [place] [address] 36104 WBC (Bld) [#/Vol] 6.80 10*3/uL Normal 3.70-11.00 [facility] Comment on above: Order Comment: Speci men Type: BLOOD SPECIMEN Ordering Facility: [facility] Address: [address] [place] [address]15 Performed By: #### 5 7021-8 #### [facility] CLIA [id number] [address] [place] [address] 36678 Comprehensive metabolic 2000 panelon 01-25-2024 Albumin [Mass/Vol] 4.0 g/dL Normal 3.9-4.9 [facility] Comment on above: Order Comment: Speci men Type: BLOOD SPECIMEN Ordering Facility: [facility] Address: [address] [place] [address] Performed By: #### 5 7021-8 #### [facility] CLIA [id number] [address] [place] [address]26 ALP [Catalytic activity/Vol] 74 U/L Normal 38-[address] [facility] Comment on above: Order Comment: Speci men Type: BLOOD SPECIMEN Ordering Facility: [facility] Address: [address] [place] [address] Performed By: #### 5 7021-8 #### [facility] CLIA [id number] [address] [place] [address] ALT [Catalytic activity/Vol] 18 U/L Normal 10-[address] [facility] Comment on above: Order Comment: Speci men Type: BLOOD SPECIMEN Ordering Facility: [facility] Address: [address] [place] [address] Performed By: #### 5 7021-8 #### [facility] CLIA [id number] [address] [place] [address] 97792 Anion gap [Moles/Vol] 9 mmol/L Normal 8-[address] [facility] Comment on above: Order Comment: Speci men Type: BLOOD SPECIMEN Ordering Facility: [facility] Address: [address] [place] [address] Performed By: #### 5 7021-8 #### [facility] CLIA [id number] [address] [place] [address] 09163 AST [Catalytic activity/Vol] 19 U/L Normal 14-[address] [facility] Comment on above: Order Comment: Speci men Type: BLOOD SPECIMEN Ordering Facility: [facility] Address: [address] [place] [address] Performed By: #### 5 7021-8 #### [facility] CLIA [id number] [address] [place] [address] Bilirubin [Mass/Vol] 0.7 mg/dL Normal 0.2-1.[address] [facility] Comment on above: Order Comment: Speci men Type: BLOOD SPECIMEN Ordering Facility: [facility] Address: [facility] [place] [address] Performed By: #### 5 7021-8 #### [facility] CLIA [id number] [address] [place] [address] Calcium [Mass/Vol] 9.9 mg/dL Normal 8.5-10.2 [facility] Comment on above: Order Comment: Speci men Type: BLOOD SPECIMEN Ordering Facility: [facility] Address: [address] [place] [address] Performed By: #### 5 7021-8 #### [facility] CLIA [id number] [address] [place] [address] 74726 Chloride [Moles/Vol] 103 mmol/L Normal 98-[address] [facility] Comment on above: Order Comment: Speci men Type: BLOOD SPECIMEN Ordering Facility: [facility] Address: [address] [place] [address] Performed By: #### 5 7021-8 #### [facility] CLIA [id number] [address] [place] [address] 83398 CO2 [Moles/Vol] 25 mmol/L Normal 22-[address] [facility] Comment on above: Order Comment: Speci men Type: BLOOD SPECIMEN Ordering Facility: [facility] Address: [address] [place] [address] Performed By: #### 5 7021-8 #### [facility] CLIA [id number] [address] [place] [address] 38722 Creatinine [Mass/Vol] 0.79 mg/dL Normal 0.73-1.[address] [facility] Comment on above: Order Comment: Speci men Type: BLOOD SPECIMEN Ordering Facility: [facility] Address: [address] [place] [address] Performed By: #### 5 7021-8 #### [facility] CLIA [id number] [address] [place] [address]1506 Creatinine and Glomerular filtration rate.predicted panel (S/P/Bld) 91 mL/min/1.73m??? Normal >=[address] [facility] Comment on above: Order Comment: Speci men Type: BLOOD SPECIMEN Ordering Facility: [facility] Address: [address] [place] [address] 427[address] Result Comment: Renae mated Glomerular Filtration Rate [...] GFR. Performed By: #### 5 7021-8 #### [facility] CLIA [id number] [address] [place] [address] 38128 Glucose [Mass/Vol] 112 mg/dL High 74-99 [facility] Comment on above: Order Comment: Nicanor acmilo Type: BLOOD SPECIMEN Ordering Facility: [facility] Address: [address] [place], [place] [address] Result Comment: The [place] [employer] (ADA) provides guidance for cutoff [...] Standards of Medical Care in Diabetes 2016, [place] [employer]. Diabetes Care. 2016.39(Suppl 1). Performed By: #### 5 7021-8 #### [facility] CLIA [id number] [address] [place] [address] 45747 Potassium [Moles/Vol] 5.2 mmol/L High 3.7-5.[address] [facility] Comment on above: Order Comment: Nicanor camilo Type: BLOOD SPECIMEN Ordering Facility: [facility] Address: [address] [place] [address] Performed By: #### 5 7021-8 #### [facility] CLIA [id number] [address] [place] [address]12 Protein [Mass/Vol] 6.6 g/dL Normal 6.3-8.0 [facility] Comment on above: Order Comment: Speci men Type: BLOOD SPECIMEN Ordering Facility: [facility] Address: [address] [place] [address] Performed By: #### 5 7021-8 #### [facility] CLIA [id number] [address] [place] [address] Sodium [Moles/Vol] 137 mmol/L Normal 136-144 [facility] Comment on above: Order Comment: Speci men Type: BLOOD SPECIMEN Ordering Facility: [facility] Address: [address] [place] [address] Performed By: #### 5 7021-8 #### [facility] CLIA [id number] [address] [place] [address] 98220 Urea nitrogen [Mass/Vol] 15 mg/dL Normal 9-[address] [facility] Comment on above: Order Comment: Speci men Type: BLOOD SPECIMEN Ordering Facility: [facility] Address: [address] [place] [address] Performed By: #### 5 7021-8 #### [facility] CLIA [id number] [address] [place] [address] 49924 Eosinophils/100 WBC Auto (Bl d)on 01-25-2024 Eosinophils/100 WBC (Bld) 5.9 % [facility] Erythrocyte distribution wid th Auto (RBC) [Ratio]on 01-25-2024 Erythrocyte distribution width (RBC) [Ratio] 12.7 % 11.5-15.0 [facility] Hematocrit Auto (Bld) [Volum e fraction]on 01-25-2024 Hematocrit (Bld) [Volume fraction] 34.6 % Low 39.0-51.0 [facility] Hemoglobin [Mass/volume] in Bloodon 01-25-2024 Hemoglobin (Bld) [Mass/Vol] 11.8 g/dL Low 13.0-17.0 [facility] Laboratory - Chemistry and C hemistry - challengeon 01-25-2024 Albumin [Mass/Vol] 4.0 g/dL 3.9-4.9 [facility] ALP [Catalytic activity/Vol] 74 U/L 38-113 [facility] ALT [Catalytic activity/Vol] 18 U/L 10-54 [facility] AST [Catalytic activity/Vol] 19 U/L 14-40 [facility] Bilirubin [Mass/Vol] 0.7 mg/dL 0.2-1.3 [facility] Calcium [Mass/Vol] 9.9 mg/dL 8.5-10.2 [facility] Chloride [Moles/Vol] 103 mmol/L 98-107 [facility] CO2 [Moles/Vol] 25 mmol/L 22-30 [facility] Creatinine [Mass/Vol] 0.79 mg/dL 0.73-1.22 [facility] Glucose [Mass/Vol] 112 mg/dL High 74-99 [facility] Comment on above: The [employer] [place] [employer] Association (ADA) provides guidance for [...] Standards of Medical Care in Diabetes 2016, [place] [employer]. Diabetes Care. 2016.39(Suppl 1). Potassium [Moles/Vol] 5.2 mmol/L High 3.7-5.1 [facility] Sodium [Moles/Vol] 137 mmol/L 136-144 [facility] Urea nitrogen [Mass/Vol] 15 mg/dL 9-24 [facility] Laboratory - Hematology and Cell countson 01-25-2024 Eosinophils (Bld) [#/Vol] 0.40 10*3/uL <0.46 [facility] Immature granulocytes (Bld) [#/Vol] 0.07 10*3/uL <0.10 [facility] Immature granulocytes/100 WBC (Bld) 1.0 % [facility] Leukocytes [#/volume] correc jomar for nucleated erythrocytes in Blood by Automated counon 01-25-2024 WBC corrected for nucl RBC Auto (Bld) [#/Vol] 6.80 k/uL 3.70-11.00 [facility] Lymphocytes Auto (Bld) [#/Vo l]on 01-25-2024 Lymphocytes (Bld) [#/Vol] 2.16 10*3/uL 1.00-4.00 [facility] Lymphocytes/100 WBC Auto (Bl d)on 01-25-2024 Lymphocytes/100 WBC (Bld) 31.8 % [facility] MCH Auto (RBC) [Entitic mass ]on 01-25-2024 MCH (RBC) [Entitic mass] 32.2 pg 26.0-34.0 [facility] MCHC Auto (RBC) [Mass/Vol]on 01-25-2024 MCHC (RBC) [Mass/Vol] 34.1 g/dL 30.5-36.0 [facility] MCV Auto (RBC) [Entitic vol] on 01-25-2024 MCV (RBC) [Entitic vol] 94.3 fL 80.0-100.0 [facility] Monocytes Auto (Bld) [#/Vol] on 01-25-2024 Monocytes (Bld) [#/Vol] 0.60 10*3/uL <0.87 [facility] Monocytes/100 WBC Auto (Bld) on 01-25-2024 Monocytes/100 WBC (Bld) 8.8 % [facility] Neutrophils Auto (Bld) [#/Vo l]on 01-25-2024 Neutrophils (Bld) [#/Vol] 3.53 10*3/uL 1.45-7.50 [facility] Neutrophils/100 WBC Auto (Bl d)on 01-25-2024 Neutrophils/100 WBC (Bld) 51.9 % [facility] No Panel Informationon 01-24 Estimated GFR (CKD-EPI) 91 mL/min/1.73m??? >=60 [facility] Comment on above: Estimated Glomerular [...] GFR. Prostate Specific Antigen 0.15 ng/mL <2.60 [facility] Comment on above: Total PSA test metho dology used is the Electrochemiluminescence Immunoassay by [employer]. Total PSA values by differing methodologies cannot be interchanged. Nucleated RBC Auto (Bld) [#/ Vol]on 01-25-2024 Nucleated RBC (Bld) [#/Vol] 10*3/uL <0.01 [facility] Nucleated erythrocytes [Pres ence] in Blood by Automated counton 01-25-2024 Nucleated RBC Auto Ql (Bld) 0.0 /100{WBC} [facility] PSA SerPl-mCncon 01-25-2024 Prostate specific Ag [Mass/Vol] 0.15 ng/mL Normal <2.[address] [facility] Comment on above: Order Comment: Speci men Type: BLOOD SPECIMEN Ordering Facility: [facility] Address: [address] [place] [address] Result Comment: Tota l PSA test methodology used is the Electrochemiluminescence Immunoassay by [employer]. Total PSA values by differing methodologies cannot be interchanged. Performed By: #### 5 7021-8 #### [facility] CLIA [id number] [address] [place] [address] Platelet mean volume Auto (B ld) [Entitic vol]on 01-25-2024 Platelet mean volume (Bld) [Entitic vol] 10.3 fL 9.0-12.7 [facility] Platelets Auto (Bld) [#/Vol] on 01-25-2024 Platelets (Bld) [#/Vol] 184 10*3/uL 150-400 [facility] Protein [Mass/volume] in Ser um or Plasmaon 01-25-2024 Protein [Mass/Vol] 6.6 g/dL 6.3-8.0 [facility] RBC Auto (Bld) [#/Vol]on RBC (Bld) [#/Vol] 3.67 10*6/uL Low 4.20-6.00 [facility] Serum or plasma anion gap de terminationon 01-25-2024 Anion gap [Moles/Vol] 9 mmol/L 8-15 [facility] Consultation Noteon 11-07-19 Consultation Note [id number] Normal Juan F [facility] CNOVSPon 11-02-2023 CNOVSP Visit (SP) Office (H EMASA) JERICAPABLO An ([id number]) 1945 M Date Time Provider Department 11/02/23 [...] OTHER PHYSICIANS: Dr. Anthony Scruggs, Dr. Khan, [facility] Cardiology Portions of this encounter [...] mg 24 hr tablet Take by mouth. Wwqrenmnxwjbu-Ncwrxsqf-Rivx in (MULTIVITAMIN 50 PLUS) tab Take 1 [...] Radical retropubic prostatectomy and bilateral pelvic lymphadenectomy (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 Left base margin positive for neoplasm. Seminal vesicles with no diagnostic abnormality. 2 resected lymph nodes negative for neoplasm. LABS: Hem (more content not included)... Normal [facility] Basophils Auto (Bld) [#/Vol] on 10-30-2023 Basophils (Bld) [#/Vol] 0.04 10*3/uL <0.11 [facility] Basophils/100 WBC Auto (Bld) on 10-30-2023 Basophils/100 WBC (Bld) 0.5 % [facility] Blood manual differential co mment interpretation narrativeon 10-30-2023 Manual differential comment [place] (Bld) [Interp] Auto [facility] CBC W Auto Differential pane l (Bld)on 10-30-2023 Basophils (Bld) [#/Vol] 0.04 10*3/uL Normal <0.[address] [facility] Comment on above: Order Comment: Speci men Type: BLOOD SPECIMEN Ordering Facility: [facility] Address: [address] [place] [address] Performed By: #### 5 7021-8 #### [facility] CLIA [id number] [address] [place] [address] Basophils/100 WBC (Bld) 0.5 % Normal [facility] Comment on above: Order Comment: Speci men Type: BLOOD SPECIMEN Ordering Facility: [facility] Address: [address] [place] [address] Performed By: #### 5 7021-8 #### [facility] CLIA [id number] [address] [place] [address] 90329 Differential cell count method Nom (Bld) Auto Normal [facility] Comment on above: Order Comment: Speci men Type: BLOOD SPECIMEN Ordering Facility: [facility] Address: [address] [place] [address] Performed By: #### 5 7021-8 #### [facility] CLIA [id number] [address] [place] [address] 42234 Eosinophils (Bld) [#/Vol] 0.35 10*3/uL Normal <0.[address] [facility] Comment on above: Order Comment: Speci men Type: BLOOD SPECIMEN Ordering Facility: [facility] Address: [address] [place] [address] Performed By: #### 5 7021-8 #### [facility] CLIA [id number] [address] [place] [address] 42409 Eosinophils/100 WBC (Bld) 4.3 % Normal [facility] Comment on above: Order Comment: Speci men Type: BLOOD SPECIMEN Ordering Facility: [facility] Address: [address] [place] [address] Performed By: #### 5 7021-8 #### [facility] CLIA [id number] [address] [place] [address] 69518 Erythrocyte distribution width (RBC) [Ratio] 12.8 % Normal 11.5-15.[address] [facility] Comment on above: Order Comment: Speci men Type: BLOOD SPECIMEN Ordering Facility: [facility] Address: [address] [place] [address] Performed By: #### 5 7021-8 #### [facility] CLIA [id number] [address] [place] [address] Hematocrit (Bld) [Volume fraction] 35.8 % Low 39.0-51.[address] [facility] Comment on above: Order Comment: Speci men Type: BLOOD SPECIMEN Ordering Facility: [facility] Address: [address] [place] [address] Performed By: #### 5 7021-8 #### [facility] CLIA [id number] [address] [place] [address] 79850 Hemoglobin (Bld) [Mass/Vol] 12.2 g/dL Low 13.0-17.[address] [facility] Comment on above: Order Comment: Speci men Type: BLOOD SPECIMEN Ordering Facility: [facility] Address: [address] [place] [address] Performed By: #### 5 7021-8 #### [facility] CLIA [id number] [address] [place] [address] 68755 Immature granulocytes (Bld) [#/Vol] 0.04 10*3/uL Normal <0.[address] [facility] Comment on above: Order Comment: Speci men Type: BLOOD SPECIMEN Ordering Facility: [facility] Address: [address] [place] [address] Performed By: #### 5 7021-8 #### [facility] CLIA [id number] [address] [place] [address] 20795 Immature granulocytes/100 WBC (Bld) 0.5 % Normal [facility] Comment on above: Order Comment: Speci men Type: BLOOD SPECIMEN Ordering Facility: [facility] Address: [address] [place] [address] Performed By: #### 5 7021-8 #### [facility] CLIA [id number] [address] [place] [address] 58472 Lymphocytes (Bld) [#/Vol] 1.36 10*3/uL Normal 1.00-4.[address] [facility] Comment on above: Order Comment: Speci men Type: BLOOD SPECIMEN Ordering Facility: [facility] Address: [facility] [place] [address] Performed By: #### 5 7021-8 #### [facility] CLIA [id number] [address] [place] [address] 39340 Lymphocytes/100 WBC (Bld) 16.6 % Normal [facility] Comment on above: Order Comment: Speci men Type: BLOOD SPECIMEN Ordering Facility: [facility] Address: [address] [place] [address] Performed By: #### 5 7021-8 #### [facility] CLIA [id number] [address] [place] [address] 90847 MCH (RBC) [Entitic mass] 31.3 pg Normal 26.0-34.[address] [facility] Comment on above: Order Comment: Speci men Type: BLOOD SPECIMEN Ordering Facility: [facility] Address: [address] [place] [address] Performed By: #### 5 7021-8 #### [facility] CLIA [id number] [address] [place] [address] 09320 MCHC (RBC) [Mass/Vol] 34.1 g/dL Normal 30.5-36.[address] [facility] Comment on above: Order Comment: Speci men Type: BLOOD SPECIMEN Ordering Facility: [facility] Address: [address] [place] [address] Performed By: #### 5 7021-8 #### [facility] CLIA [id number] [address] [place] [address] 73927 MCV (RBC) [Entitic vol] 91.8 fL Normal 80.0-100.[address] [facility] Comment on above: Order Comment: Speci men Type: BLOOD SPECIMEN Ordering Facility: [facility] Address: [address] [place] [address] Performed By: #### 5 7021-8 #### [facility] CLIA [id number] [address] [place] [address] 14607 Monocytes (Bld) [#/Vol] 0.62 10*3/uL Normal <0.[address] [facility] Comment on above: Order Comment: Speci men Type: BLOOD SPECIMEN Ordering Facility: [facility] Address: [address] [place] [id number] Performed By: #### 5 7021-8 #### [facility] CLIA [id number] [address] [place] [address] 22650 Monocytes/100 WBC (Bld) 7.6 % Normal [facility] Comment on above: Order Comment: Speci men Type: BLOOD SPECIMEN Ordering Facility: [facility] Address: [address] [place] [address] Performed By: #### 5 7021-8 #### [facility] CLIA [id number] [address] [place] [address] 24717 Neutrophils (Bld) [#/Vol] 5.78 10*3/uL Normal 1.45-7.[address] [facility] Comment on above: Order Comment: Speci men Type: BLOOD SPECIMEN Ordering Facility: [facility] Address: [address] [place] [address] Performed By: #### 5 7021-8 #### [facility] CLIA [id number] [address] [place] [address] 42141 Neutrophils/100 WBC (Bld) 70.5 % Normal [facility] Comment on above: Order Comment: Speci men Type: BLOOD SPECIMEN Ordering Facility: [facility] Address: [address] [place] [address] Performed By: #### 5 7021-8 #### [facility] CLIA [id number] [address] [place] [address] 93240 Nucleated RBC (Bld) [#/Vol] 10*3/uL Normal <0.[address] [facility] Comment on above: Order Comment: Speci men Type: BLOOD SPECIMEN Ordering Facility: [facility] Address: [address] [place] [address] Performed By: #### 5 7021-8 #### [facility] CLIA [id number] [address] [place] [address] Nucleated RBC/100 WBC (Bld) [Ratio] 0.0 /[address] [facility] Comment on above: Order Comment: Speci men Type: BLOOD SPECIMEN Ordering Facility: [facility] Address: [address] [place] [address] Performed By: #### 5 7021-8 #### [facility] CLIA [id number] [address] [place] [address] 25404 Platelet mean volume (Bld) [Entitic vol] 9.5 fL Normal 9.0-12.[address] [facility] Comment on above: Order Comment: Speci men Type: BLOOD SPECIMEN Ordering Facility: [facility] Address: [address] [place] [address] Performed By: #### 5 7021-8 #### [facility] CLIA [id number] [address] [place] [address] 77005 Platelets (Bld) [#/Vol] 192 10*3/uL Normal 150-[address] [facility] Comment on above: Order Comment: Speci men Type: BLOOD SPECIMEN Ordering Facility: [facility] Address: [address] [place] [address] Performed By: #### 5 7021-8 #### [facility] CLIA [id number] [address] [place] [address] 52149 RBC (Bld) [#/Vol] 3.90 10*6/uL Low 4.20-6.00 [facility] Comment on above: Order Comment: Speci men Type: BLOOD SPECIMEN Ordering Facility: [facility] Address: [address] [place] [address]74 Performed By: #### 5 7021-8 #### [facility] CLIA [id number] [address] [place] [address] 83333 WBC (Bld) [#/Vol] 8.19 10*3/uL Normal 3.70-11.00 [facility] Comment on above: Order Comment: Speci men Type: BLOOD SPECIMEN Ordering Facility: [facility] Address: [address] [place] [address] Performed By: #### 5 7021-8 #### [facility] CLIA [id number] [address] [place] [address] 90396 Comprehensive metabolic 2000 panelon 10-30-2023 Albumin [Mass/Vol] 4.1 g/dL Normal 3.9-4.9 [facility] Comment on above: Order Comment: Speci men Type: BLOOD SPECIMEN Ordering Facility: [facility] Address: [address] [place], [place] [address] Performed By: #### 5 7021-8 #### [facility] CLIA [id number] [address] [place] [address] 69474 ALP [Catalytic activity/Vol] 75 U/L Normal 38-[address] [facility] Comment on above: Order Comment: Speci men Type: BLOOD SPECIMEN Ordering Facility: [facility] Address: [address] [place], [place] [address] Performed By: #### 5 7021-8 #### [facility] CLIA [id number] [address] [place] [address] 22388 ALT [Catalytic activity/Vol] 16 U/L Normal 10-[address] [facility] Comment on above: Order Comment: Speci men Type: BLOOD SPECIMEN Ordering Facility: [facility] Address: [address] [place] [address] Performed By: #### 5 7021-8 #### [facility] CLIA [id number] [address] [place] [address] 61532 Anion gap [Moles/Vol] 13 mmol/L Normal 9-[address] [facility] Comment on above: Order Comment: Speci men Type: BLOOD SPECIMEN Ordering Facility: [facility] Address: [address] [place], [place] [address] Performed By: #### 5 7021-8 #### [facility] CLIA [id number] [address] [place] [address] 07839 AST [Catalytic activity/Vol] 16 U/L Normal 14-[address] [facility] Comment on above: Order Comment: Speci men Type: BLOOD SPECIMEN Ordering Facility: [facility] Address: [address] [place] [address] Performed By: #### 5 7021-8 #### [facility] CLIA [id number] [address] [place] [address] Bilirubin [Mass/Vol] 0.7 mg/dL Normal 0.2-1.[address] [facility] Comment on above: Order Comment: Speci men Type: BLOOD SPECIMEN Ordering Facility: [facility] Address: [address] [place] [address]23 Performed By: #### 5 7021-8 #### [facility] CLIA [id number] [address] [place] [address] 61251 Calcium [Mass/Vol] 9.8 mg/dL Normal 8.5-10.2 [facility] [facility] Comment on above: Order Comment: Speci men Type: BLOOD SPECIMEN Ordering Facility: [facility] Address: [address] [place] [address] Performed By: #### 5 7021-8 #### [facility] CLIA [id number] [address] [place] [address]808 Chloride [Moles/Vol] 103 mmol/L Normal 97-[address] [facility] Comment on above: Order Comment: Speci men Type: BLOOD SPECIMEN Ordering Facility: [facility] Address: [address] [place] [address] Performed By: #### 5 7021-8 #### [facility] CLIA [id number] [address] [place] [address] CO2 [Moles/Vol] 24 mmol/L Normal 22-[address] [facility] Comment on above: Order Comment: Speci men Type: BLOOD SPECIMEN Ordering Facility: [facility] Address: [address] [place] [address] Performed By: #### 5 7021-8 #### [facility] CLIA [id number] [address] [place] [address]48 Creatinine [Mass/Vol] 0.88 mg/dL Normal 0.73-1.[address] [facility] Comment on above: Order Comment: Nicanor camilo Type: BLOOD SPECIMEN Ordering Facility: [facility] Address: [address] [place], [place] [id number] Performed By: #### 5 7021-8 #### [facility] CLIA [id number] [address] [place] [address] Creatinine and Glomerular filtration rate.predicted panel (S/P/Bld) 89 mL/min/1.73m??? Normal >=[address] [facility] Comment on above: Order Comment: Nicanor camilo Type: BLOOD SPECIMEN Ordering Facility: [facility] Address: [address] [place] [address] Result Comment: Renae mated Glomerular Filtration Rate [...] GFR. Performed By: #### 5 7021-8 #### [facility] CLIA [id number] [address] [place] [address] Glucose [Mass/Vol] 128 mg/dL High 74-99 [facility] Comment on above: Order Comment: Nicanor camilo Type: BLOOD SPECIMEN Ordering Facility: [facility] Address: [address] [place], [place] [id number] Result Comment: The [place] [employer] (ADA) provides guidance for cutoff [...] Standards of Medical Care in Diabetes 2016, [place] [employer]. Diabetes Care. 2016.39(Suppl 1). Performed By: #### 5 7021-8 #### [facility] CLIA [id number] [address] [place] [address] Potassium [Moles/Vol] 4.8 mmol/L Normal 3.7-5.[address] [facility] Comment on above: Order Comment: Speci men Type: BLOOD SPECIMEN Ordering Facility: [facility] Address: [address] [place] [address] Performed By: #### 5 7021-8 #### [facility] CLIA [id number] [address] [place] [address] Protein [Mass/Vol] 6.5 g/dL Normal 6.3-8.0 [facility] Comment on above: Order Comment: Speci men Type: BLOOD SPECIMEN Ordering Facility: [facility] Address: [address] [place] [address] Performed By: #### 5 7021-8 #### [facility] CLIA [id number] [address] [place] [address] 31041 Sodium [Moles/Vol] 140 mmol/L Normal 136-144 [facility] Comment on above: Order Comment: Speci men Type: BLOOD SPECIMEN Ordering Facility: [facility] Address: [address] [place] [address] Performed By: #### 5 7021-8 #### [facility] CLIA [id number] [address] [place] [address] 24866 Urea nitrogen [Mass/Vol] 18 mg/dL Normal 9-[address] [facility] Comment on above: Order Comment: Speci men Type: BLOOD SPECIMEN Ordering Facility: [facility] Address: [address] [place] [address] Performed By: #### 5 7021-8 #### [facility] CLIA [id number] [address] [place] [address] Eosinophils/100 WBC Auto (Bl d)on 10-30-2023 Eosinophils/100 WBC (Bld) 4.3 % [facility] Erythrocyte distribution wid th Auto (RBC) [Ratio]on 10-30-2023 Erythrocyte distribution width (RBC) [Ratio] 12.8 % 11.5-15.0 [facility] Hematocrit Auto (Bld) [Volum e fraction]on 10-30-2023 Hematocrit (Bld) [Volume fraction] 35.8 % 39.0-51.0 [facility] Hemoglobin [Mass/volume] in Bloodon 10-30-2023 Hemoglobin (Bld) [Mass/Vol] 12.2 g/dL 13.0-17.0 [facility] Laboratory - Chemistry and C hemistry - challengeon 10-30-2023 Albumin [Mass/Vol] 4.1 g/dL 3.9-4.9 [facility] ALP [Catalytic activity/Vol] 75 U/L 38-113 [facility] ALT [Catalytic activity/Vol] 16 U/L 10-54 [facility] AST [Catalytic activity/Vol] 16 U/L 14-40 [facility] Bilirubin [Mass/Vol] 0.7 mg/dL 0.2-1.3 [facility] Calcium [Mass/Vol] 9.8 mg/dL 8.5-10.2 [facility] Chloride [Moles/Vol] 103 mmol/L 97-105 [facility] CO2 [Moles/Vol] 24 mmol/L 22-30 [facility] Creatinine [Mass/Vol] 0.88 mg/dL 0.73-1.22 [facility] Glucose [Mass/Vol] 128 mg/dL 74-99 [facility] Comment on above: The [place] Di[employer] s Association (ADA) provides guidance for [...] Standards of Medical Care in Diabetes 2016, [place] [employer]. Diabetes Care. 2016.39(Suppl 1). Potassium [Moles/Vol] 4.8 mmol/L 3.7-5.1 [facility] Sodium [Moles/Vol] 140 mmol/L 136-144 [facility] Urea nitrogen [Mass/Vol] 18 mg/dL 9-24 [facility] Laboratory - Hematology and Cell countson 10-30-2023 Eosinophils (Bld) [#/Vol] 0.35 10*3/uL <0.46 [facility] Immature granulocytes (Bld) [#/Vol] 0.04 10*3/uL <0.10 [facility] Immature granulocytes/100 WBC (Bld) 0.5 % [facility] Leukocytes [#/volume] correc jomar for nucleated erythrocytes in Blood by Automated counon 10-30-2023 WBC corrected for nucl RBC Auto (Bld) [#/Vol] 8.19 k/uL 3.70-11.00 [facility] Lymphocytes Auto (Bld) [#/Vo l]on 10-30-2023 Lymphocytes (Bld) [#/Vol] 1.36 10*3/uL 1.00-4.00 [facility] Lymphocytes/100 WBC Auto (Bl d)on 10-30-2023 Lymphocytes/100 WBC (Bld) 16.6 % [facility] MCH Auto (RBC) [Entitic mass ]on 10-30-2023 MCH (RBC) [Entitic mass] 31.3 pg 26.0-34.0 [facility] MCHC Auto (RBC) [Mass/Vol]on 10-30-2023 MCHC (RBC) [Mass/Vol] 34.1 g/dL 30.5-36.0 [facility] MCV Auto (RBC) [Entitic vol] on 10-30-2023 MCV (RBC) [Entitic vol] 91.8 fL 80.0-100.0 [facility] Monocytes Auto (Bld) [#/Vol] on 10-30-2023 Monocytes (Bld) [#/Vol] 0.62 10*3/uL <0.87 [facility] Monocytes/100 WBC Auto (Bld) on 10-30-2023 Monocytes/100 WBC (Bld) 7.6 % [facility] Neutrophils Auto (Bld) [#/Vo l]on 10-30-2023 Neutrophils (Bld) [#/Vol] 5.78 10*3/uL 1.45-7.50 [facility] Neutrophils/100 WBC Auto (Bl d)on 10-30-2023 Neutrophils/100 WBC (Bld) 70.5 % [facility] No Panel Informationon 10-29 Estimated GFR (CKD-EPI) 89 mL/min/1.73m??? >=60 [facility] Comment on above: Estimated Glomerular [...] GFR. Prostate Specific Antigen 0.16 ng/mL <2.60 [facility] Comment on above: Total PSA test metho dology used is the Electrochemiluminescence Immunoassay by [employer]. Total PSA values by differing methodologies cannot be interchanged. Testosterone Level 78 ng/dL 193-824 [facility] Comment on above: A testosterone level in the 193-320 ng/dL range with associated clinical symptoms is considered low and may indicate hypogonadism (from NEJ 2010 363:123-135). Results >320 ng/dL are considered normal.Result rechecked. Nucleated RBC Auto (Bld) [#/ Vol]on 10-30-2023 Nucleated RBC (Bld) [#/Vol] 10*3/uL <0.01 [facility] Nucleated erythrocytes [Pres ence] in Blood by Automated counton 10-30-2023 Nucleated RBC Auto Ql (Bld) 0.0 /100{WBC} [facility] PSA SerPl-mCncon 10-30-2023 Prostate specific Ag [Mass/Vol] 0.16 ng/mL Normal <2.[address] [facility] Comment on above: Order Comment: Speci men Type: BLOOD SPECIMEN Ordering Facility: [facility] Address: [address] [place] [address] Result Comment: Carlosa l PSA test methodology used is the Electrochemiluminescence Immunoassay by [employer]. Total PSA values by differing methodologies cannot be interchanged. Performed By: #### 2 857-1 #### [facility] CLIA [id number] [address] [place] [address] [place] Platelet mean volume Auto (B ld) [Entitic vol]on 10-30-2023 Platelet mean volume (Bld) [Entitic vol] 9.5 fL 9.0-12.7 [facility] Platelets Auto (Bld) [#/Vol] on 10-30-2023 Platelets (Bld) [#/Vol] 192 10*3/uL 150-400 [facility] Protein [Mass/volume] in Ser um or Plasmaon 10-30-2023 Protein [Mass/Vol] 6.5 g/dL 6.3-8.0 [facility] RBC Auto (Bld) [#/Vol]on RBC (Bld) [#/Vol] 3.90 10*6/uL 4.20-6.00 [facility] Serum or plasma anion gap de terminationon 10-30-2023 Anion gap [Moles/Vol] 13 mmol/L 9-18 [facility] Testost SerPl-mCncon 024 Testosterone [Mass/Vol] 78 ng/dL Low 193-[address] [facility] Comment on above: Order Comment: Speci men Type: BLOOD SPECIMEN Ordering Facility: [facility] Address: [address] [place] [address] Result Comment: A te stosterone level in the 193-320 ng/dL range with associated clinical symptoms is considered low and may indicate hypogonadism (from NEJM 2010 363:123-135). Results >320 ng/dL are considered normal. Result rechecked. Performed By: #### 2 986-8 #### [facility] CLIA [id number] [id number] [place] Patient Educationon 10-20-19 [...] under a microscope. This is called the Wesson score and the total score can range from 6?10, indicating how likely it is that the cancer will spread (metastasize) to other parts of the body. The higher the score, the greater the likelihood that the cancer will spread. ? Wesson 6 or lower: This indicates that the cancer cells look similar to normal prostate cells (well differentiated). ? Wesson 7: This indicates that the cancer cells look somewhat similar to normal prostate cells (moderately differentiated). ? Wesson 8, 9, or 10: This indicates that [...] (more content not included)... 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 Last Lupron [...] Contact Information KAEL JAMES, Anthony Lee, URL [facility] [place] [address]- Additional Instructions: 6 mos w/ PSA and [...] 1 tab(s), Oral, Daily ipratropium Nasal 0.06% [place] metformin 1000 mg oral tablet, Oral, BID metoprolol 25 mg ER Tab, 25 mg= 1 tab(s), Oral, BID Vitamin D3 Xtandi 80 mg oral tablet, Oral, Daily Allergies penicillin G benzathine (Unknown) Social History Alcohol Current, 1-2 times per year, 02/04/2019 Tobacco Never (less than 100 in lifetime) Tobacco Use:. Never Smokeless Tobacco Use:. (more content not included)... [facility] Comment on above: Result Comment: Elec tronically Signed By: Anthony SCRUGGS MD\.br\Date and Time Signed: 10/20/23 09:57 EDT\.br\Electronically Co-Signed By: Olamide Ureña.br\Date and Time Co-Signed: 10/20/23 09:55 EDT Lab Reportson 10-10-2023 Lab Reports [id number]#[id number] [facility] RAD - MISCon 10-10-2023 RAD - MISC [id number]#1.00TIFF [facility] No Panel Informationon 10-08 Prostate Specific Antigen Total <0.13 ng/mL <=4.00 [facility] No Panel Informationon 08-28 [facility] Type of biopsy: schmidt ential Informed consent: [...] yes Amount of lidocaine used: 0.5 cc [facility] Consultation Noteon 08-04-19 24 Consultation Note [id number]#1.00TIFF Normal [facility] Office Visiton 06-22-2023 Follow-up visit [id number] Pablo Felix 1945 M Date Provider Department Center 06/22/2023 Erika-BRIDGER MULLIGAN [facility] Family History Problem Relation Age of Onset Coronary artery disease Father Family Status - Relation Status Age at Father Level of Service:14922 SC OFFICE/OUTPATIENT ESTABLISHED MOD MDM 30-39 MIN Normal [facility] RAD - MISCon 04-24-2023 RAD - MISC [id number]#1.00TIFF Normal [facility] GLYCOHEMOGLOBIN A1Con 2022 ADA RECOMMENDATION SEE BELOW Normal [facility] Comment on above: Result Comment: ADA RECOMMENDED LIMIT 4.0 - 6.0 ADA THERAPEUTIC TARGET < 7.0 ACTION SUGGESTED > 7.0 Performed By: #### D ATA1C #### [facility] [address] [address] [address] Bharati Aguiar Glucose [Mass/Vol] 131 mg/dL Normal [facility] Comment on above: Performed By: #### D ATA1C #### [facility] [address] [address] [address] Bharati Aguiar HbA1c (Bld) [Mass fraction] 6.2 % Normal 4.5-6.2 [facility] Comment on above: Performed By: #### D ATA1C #### [facility] [address] [address] [address] Bharati Aguiar XR CSPINE OBL FLEX_EXTon [...] CYNTHIA TORRES Date: 2022-07-21 15:52 Normal [facility] GLYCOHEMOGLOBIN A1Con 2021 ADA RECOMMENDATION SEE BELOW Normal [facility] Comment on above: Result Comment: ADA RECOMMENDED LIMIT 4.0 - 6.0 ADA THERAPEUTIC TARGET < 7.0 ACTION SUGGESTED > 7.0 Performed By: #### D ATA1C #### [facility] [address] [address] [address] Bharati Aguiar Glucose [Mass/Vol] 134 mg/dL Normal [facility] Comment on above: Performed By: #### D ATA1C #### [facility] [address] [address] [address] Bharati Aguiar HbA1c (Bld) [Mass fraction] 6.3 % Critically high 4.5-6.2 [facility] Comment on above: Performed By: #### D ATA1C #### [facility] [address] [address] [address] Bharati Aguiar ECHOCARDIO M/2D COMPLETEon 1 ECHOCARDIO M/2D COMPLETE Patient: PABLO FELIX Exam Date: 04/27/2022 : 1945 Gender:M Ordering : LORA ENGLISH Admission #: [id number] Family : DR JAMAR FALL DSony Order #: [id number] CLICK HERE TO VIEW EXAM ECHOCARDIOGRAM REPORT [...] Carreon M.D. on 04/28/2022 at 19:09 Normal [facility] GLYCOHEMOGLOBIN A1Con 2021 ADA RECOMMENDATION SEE BELOW Normal [facility] Comment on above: Result Comment: ADA RECOMMENDED LIMIT 4.0 - 6.0 ADA THERAPEUTIC TARGET < 7.0 ACTION SUGGESTED > 7.0 Performed By: #### D ATA1C ####[facility] [id number] [place], [place] [address]Vq. Bharati Aguiar Glucose [Mass/Vol] 137 mg/dL Normal [facility] Comment on above: Performed By: #### D ATA1C ####[facility] [id number] [place], [place] [address]Ll. Bharati Aguiar HbA1c (Bld) [Mass fraction] 6.4 % Critically high 4.5-6.2 [facility] Comment on above: Performed By: #### D ATA1C ####[facility] [id number] [place], [place] [address]Rq. Bharati Aguiar NM BONE SC WH BODYon [...] it was not obviously included in the [id number]-hpjh of the recent CT. There are foci [...] FEDE DE JESUS Date: 2021-11-06 12:[address] [facility] [address] CHEST W CONon 11-05-2021 CT [...] LUIZ UMANA Date: 2021-11-05 14:08 [address] [facility] PROF 14(COMP METB)on 022 Albumin [Mass/Vol] 3.6 g/dL Normal 3.4-5.0 [facility] Comment on above: Performed By: #### C MP #### [facility] [address] [place] [address] Dr. Bharati Aguiar Albumin/Globulin [Mass ratio] 1.1 {ratio} Normal [facility] Comment on above: Performed By: #### C MP #### [facility] [address] [address] [address] Bharati Aguiar ALP [Catalytic activity/Vol] 89 U/L Normal 46-116 [facility] Comment on above: Performed By: #### C MP #### [facility] [address] [address] [address] Bharati Aguiar ALT [Catalytic activity/Vol] 33 U/L Normal 16-63 [facility] Comment on above: Performed By: #### C MP #### [facility] [address] [address] [address] Bharati Aguiar Anion gap [Moles/Vol] 12.1 mmol/L Normal [facility] Comment on above: Performed By: #### C MP #### [facility] [address] [place] [address] Dr. Bharati Aguiar AST [Catalytic activity/Vol] 19 U/L Normal 15-37 [facility] Comment on above: Performed By: #### C MP #### [facility] [address] [place] [address] Dr. Bharati Aguiar Bilirubin [Mass/Vol] 0.9 mg/dL Normal 0.2-1.3 [facility] Comment on above: Performed By: #### C MP #### [facility] [address] [address] [address] Bharati Aguiar Calcium [Mass/Vol] 8.8 mg/dL Normal 8.5-10.1 [facility] Comment on above: Performed By: #### C MP #### [facility] [address] [address] [address] Bharati Aguiar Chloride [Moles/Vol] 103 mmol/L Normal 98-107 [facility] Comment on above: Performed By: #### C MP #### [facility] [address] [address] [address] Bharati Aguiar CO2 [Moles/Vol] 28.6 mmol/L Normal 22.0-30.0 [facility] Comment on above: Performed By: #### C MP #### [facility] [address] [address] [address] Bharati Aguiar Creatinine [Mass/Vol] 0.85 mg/dL Normal 0.66-1.25 [facility] Comment on above: Performed By: #### C MP #### [facility] [address] [address] [address] Bharati Aguiar EGFR-AF [place] >60 Normal >=60 [facility] Comment on above: Performed By: #### C MP #### [facility] [address] [address] [address] Bharati Aguiar EGFR-NON AF [place] >60 Normal >=60 [facility] Comment on above: Performed By: #### C MP #### [facility] [address] [place] [address] Dr. Bharati Aguiar Globulin (S) [Mass/Vol] 3.4 g/dL Normal [facility] Comment on above: Performed By: #### C MP #### [facility] [address] [place] [address] Dr. Bharati Aguiar Glucose [Mass/Vol] 127 mg/dL Critically high 74-106 [facility] Comment on above: Performed By: #### C MP #### [facility] [address] [place] [address] Dr. Bharati Aguiar Potassium [Moles/Vol] 4.7 mmol/L Normal 3.4-5.0 [facility] Comment on above: Performed By: #### C MP #### [facility] [address] [place] [address] Dr. Bharati Aguiar Protein [Mass/Vol] 7.0 g/dL Normal 6.1-8.[address] [facility] Comment on above: Performed By: #### C MP #### [facility] [address] [place] [address] Dr. Bharati Aguiar Sodium [Moles/Vol] 139 mmol/L Normal 137-[address] [facility] Comment on above: Performed By: #### C MP #### [facility] [address] [place] [address] Dr. Bharati Aguiar Urea nitrogen [Mass/Vol] 18.0 mg/dL Normal 7.0-18.0 [facility] Comment on above: Performed By: #### C MP #### [facility] [address] [address] [address] Bharati Aguiar Urea nitrogen/Creatinin e [Mass ratio] 21.2 mg/mg Normal [facility] Comment on above: Performed By: #### C MP #### [facility] [address] [address] [address] Bharati Aguiar Vital Signs Date Time Vital Sign Value Performing Clinician Facility 05-09-2024 08:52-0400 Body mass index (BMI) [Ratio] 32.79 kg/m2 Marco A Esqueda MD Work Phone: [facility] 05-09-2024 08:52-0400 Body temperature 97.3 [degF] Marco A Esqueda MD Work Phone: [facility] 05-09-2024 08:52-0400 Body weight 92.1 kg Marco A Esqueda MD Work Phone: [facility] 05-09-2024 08:52-0400 Diastolic blood pressure 62 mm[Hg] Marco A Esqueda MD Work Phone: [facility] 05-09-2024 08:52-0400 Heart rate 62 /min Marco A Esqueda MD Work Phone: [facility] 05-09-2024 08:52-0400 Respiratory rate 16 /min Marco A Esqueda MD Work Phone: [facility] 05-09-2024 08:52-0400 SaO2% (BldA) [Mass fraction] 99 % Marco A Esqueda MD Work Phone: [facility] 05-09-2024 08:52-0400 Systolic blood pressure 141 mm[Hg] Marco A Esqueda MD Work Phone: [facility] 04-19-2024 08:15-0400 Blood Pressure Location Anthony SCRUGGS [facility] 04-19-2024 08:15-0400 Body temperature 98.6 [degF] Anthony SCRUGGS [facility] 04-19-2024 08:15-0400 Diastolic blood pressure 69 mm[Hg] Anthonycindy SCRUGGS [facility] 04-19-2024 08:15-0400 Heart rate 64 /min Anthony SCRUGGS [facility] 04-19-2024 08:15-0400 Respiratory rate 17 /min Anthony SCRUGGS [facility] 04-19-2024 08:15-0400 Systolic blood pressure 129 mm[Hg] Anthony SCRUGGS [facility] 03-26-2024 08:37-0400 Body height 168.91 cm [facility] 03-26-2024 08:37-0400 Body mass index (BMI) [Ratio] 33 kg/m2 [facility] 03-26-2024 08:37-0400 Body weight 94.12 kg [facility] 03-26-2024 08:37-0400 Diastolic blood pressure 80 mm[Hg] [facility] 03-26-2024 08:37-0400 Heart rate 52 /min [facility] 03-26-2024 08:37-0400 Respiratory rate 12 /min [facility] 03-26-2024 08:37-0400 Systolic blood pressure 130 mm[Hg] [facility] 02-02-2024 11:06-0400 Body height 167.6 cm Lynne Alarcon APRN.PHP DEVELOPER Work Phone: [facility] 02-02-2024 11:06-0400 Body mass index (BMI) [Ratio] 33.36 kg/m2 Lynne Alarcon APRN.PHP DEVELOPER Work Phone: [facility] 02-02-2024 11:06-0400 Body temperature 97.3 [degF] Lynne Gross LAN ENGINEER.PHP DEVELOPER Work Phone: [facility] 02-02-2024 11:06-0400 Body weight 93.7 kg Lynne Gross LAN ENGINEER.PHP DEVELOPER Work Phone: [facility] 02-02-2024 11:06-0400 Diastolic blood pressure 54 mm[Hg] Lynne Gross LAN ENGINEER.PHP DEVELOPER Work Phone: [facility] 02-02-2024 11:06-0400 Heart rate 52 /min Lynne Gross LAN ENGINEER.PHP DEVELOPER Work Phone: [facility] 02-02-2024 11:06-0400 Respiratory rate 16 /min Lynne Gross LAN ENGINEER.PHP DEVELOPER Work Phone: [facility] 02-02-2024 11:06-0400 SaO2% (BldA) [Mass fraction] 98 % Lynne Gross LAN ENGINEER.PHP DEVELOPER Work Phone: [facility] [facility]2024 11:06-0400 Systolic blood pressure 137 mm[Hg] Lynne Gross LAN ENGINEER.PHP DEVELOPER Work Phone: [facility] 11-23-2023 08:38-0400 Body height 168.91 cm [facility] 11-23-2023 08:38-0400 Body mass index (BMI) [Ratio] 33.2 kg/m2 [facility] 11-23-2023 08:38-0400 Body weight 94.8 kg [facility] 11-23-2023 08:38-0400 Diastolic blood pressure 69 mm[Hg] [facility] 11-23-2023 08:38-0400 Heart rate 48 /min [facility] 11-23-2023 08:38-0400 Respiratory rate 12 /min [facility] 11-23-2023 08:38-0400 Systolic blood pressure 130 mm[Hg] [facility] 11-02-2023 09:14-0400 Body height 167.6 cm Christo Howard LAN ENGINEER.PHP DEVELOPER Work Phone: [facility] 11-02-2023 09:14-0400 Body temperature 97.81 [degF] Christo Howard APRN.PHP DEVELOPER Work Phone: [facility] 11-02-2023 09:14-0400 Body weight 92.9 kg Christo Howard APRN.PHP DEVELOPER Work Phone: [facility] 11-02-2023 09:14-0400 Diastolic blood pressure 44 mm[Hg] Christo Howard APRN.PHP DEVELOPER Work Phone: [facility] 11-02-2023 09:14-0400 Heart rate 56 /min Christo Howard APRN.PHP DEVELOPER Work Phone: [facility] 11-02-2023 09:14-0400 Respiratory rate 16 /min Christo Howard APRN.PHP DEVELOPER Work Phone: [facility] 11-02-2023 09:14-0400 SaO2% (BldA) [Mass fraction] 97 % Christo Howard APRN.PHP DEVELOPER Work Phone: [facility] 11-02-2023 09:14-0400 Systolic blood pressure 123 mm[Hg] Christo Howard APRN.PHP DEVELOPER Work Phone: [facility] 10-20-2023 09:05-0400 Blood Pressure Location Anthony SCRUGGS [facility] 10-20-2023 09:05-0400 Diastolic blood pressure 64 mm[Hg] Anthony SCRUGGS [facility] 10-20-2023 09:05-0400 Heart rate 53 /min Anthony SCRUGGS [facility] 10-20-2023 09:05-0400 Respiratory rate 16 /min Anthony SCRUGGS [facility] 10-20-2023 09:05-0400 Systolic blood pressure 110 mm[Hg] Anthony SCRUGGS [facility] 09-12-2023 14:13-0500 Body height 168.91 cm [facility] 09-12-2023 14:13-0500 Body mass index (BMI) [Ratio] 33.4 kg/m2 [facility] 09-12-2023 14:13-0500 Body weight 95.42 kg [facility] 09-12-2023 14:13-0500 Diastolic blood pressure 84 mm[Hg] [facility] 09-12-2023 14:13-0500 Heart rate 56 /min [facility] 09-12-2023 14:13-0500 Respiratory rate 12 /min [facility] 09-12-2023 14:13-0500 Systolic blood pressure 143 mm[Hg] [facility] 08-24-2023 08:30-0500 Body height 168.91 cm Jamar Ball Other [facility] Other 08-24-2023 08:30-0500 Body mass index (BMI) [Ratio] 34.08 kg/m2 Jamar Ball Other [facility] Other 08-24-2023 08:30-0500 Body weight 97.25 kg Jamar Ball Other [facility] Other 08-24-2023 08:30-0500 Diastolic blood pressure 81 mm[Hg] Jamar Ball Other [facility] Other 08-24-2023 08:30-0500 Respiratory rate 12 /min Jamar Ball Other [facility] Other 08-24-2023 08:30-0500 Systolic blood pressure 125 mm[Hg] Jamar Ball Other [facility] Other 05-30-2023 15:00-0500 Body height 168.91 cm Jamar Ball Other [employer] Other 05-30-2023 15:00-0500 Body mass index (BMI) [Ratio] 32.84 kg/m2 Jamar Ball Other [employer] Other 05-30-2023 15:00-0500 Body weight 93.71 kg Jamar Ball Other [employer] Other 05-30-2023 15:00-0500 Diastolic blood pressure 66 mm[Hg] Jamar Ball Other [employer] Other 05-30-2023 15:00-0500 Respiratory rate 12 /min Jamar Ball Other [employer] Other 05-30-2023 15:00-0500 Systolic blood pressure 141 mm[Hg] Jamar Ball Other [employer] Other 05-01-2023 09:45-0400 Body height 168.91 cm Jamar Ball Other [employer] Other 05-01-2023 09:45-0400 Body mass index (BMI) [Ratio] 32.14 kg/m2 Jamar Ball Other [employer] Other 05-01-2023 09:45-0400 Body weight 91.72 kg Jamar Ball Other [employer] Other 05-01-2023 09:45-0400 Diastolic blood pressure 62 mm[Hg] Jamar Ball Other [employer] Other 05-01-2023 09:45-0400 Respiratory rate 12 /min Jamar Ball Other [employer] Other 05-01-2023 09:45-0400 Systolic blood pressure 129 mm[Hg] Jamar Ball Other [employer] Other 04-27-2023 09:23-0400 Diastolic blood pressure 49 mm[Hg] Christo Howard APRN.PHP DEVELOPER Work Phone: [facility] 04-27-2023 09:23-0400 Heart rate 50 /min Christo Howard APRN.PHP DEVELOPER Work Phone: [facility] 04-27-2023 09:23-0400 Systolic blood pressure 141 mm[Hg] Christo Howard APRN.PHP DEVELOPER Work Phone: [facility] 04-27-2023 09:20-0400 Body height 167.6 cm Christo Howard APRN.PHP DEVELOPER Work Phone: [facility] 04-27-2023 09:20-0400 Body temperature 97 [degF] Christo Howard APRN.PHP DEVELOPER Work Phone: [facility] 04-27-2023 09:20-0400 Body weight 92.53 kg Christo Howard APRN.PHP DEVELOPER Work Phone: [facility] 04-27-2023 09:20-0400 Respiratory rate 16 /min Christo Howard APRN.PHP DEVELOPER Work Phone: [facility] 04-27-2023 09:20-0400 SaO2% (BldA) [Mass fraction] 100 % Christo Howard APRN.PHP DEVELOPER Work Phone: [facility] 04-17-2023 08:45-0400 Blood Pressure Location Anthony SCRUGGS [facility] 04-17-2023 08:45-0400 Diastolic blood pressure 68 mm[Hg] Anthony SCRUGGS [facility] 04-17-2023 08:45-0400 Heart rate 62 /min Anthony SCRUGGS [facility] 04-17-2023 08:45-0400 Respiratory rate 16 /min Anthony SCRUGGS [facility] 04-17-2023 08:45-0400 Systolic blood pressure 130 mm[Hg] Anthony SCRUGGS [facility] 04-05-2023 13:45-0400 Body height 168.91 cm Jamar Ball Other [employer] Other 04-05-2023 13:45-0400 Body mass index (BMI) [Ratio] 32.46 kg/m2 Jamar Ball Other [employer] Other 04-05-2023 13:45-0400 Body weight 92.63 kg Jamar Ball Other [employer] Other 04-05-2023 13:45-0400 Diastolic blood pressure 67 mm[Hg] Jamar Ball Other [employer] Other 04-05-2023 13:45-0400 Respiratory rate 12 /min Jamar Ball Other [employer] Other 04-05-2023 13:45-0400 Systolic blood pressure 109 mm[Hg] Jamar Ball Other [employer] Other 03-15-2023 08:45-0400 Body height 168.91 cm Jamar Ball Other [employer] Other 03-15-2023 08:45-0400 Body mass index (BMI) [Ratio] 32.81 kg/m2 Jamar Ball Other [employer] Other 03-15-2023 08:45-0400 Body weight 93.62 kg Jamar Ball Other [employer] Other 03-15-2023 08:45-0400 Diastolic blood pressure 69 mm[Hg] Jamar Ball Other [employer] Other 03-15-2023 08:45-0400 Respiratory rate 12 /min Jamar Ball Other [employer] Other 03-15-2023 08:45-0400 Systolic blood pressure 131 mm[Hg] Jamar Ball Other [employer] Other 02-02-2023 09:32-0400 Body height 167.6 cm Marco A Esqueda MD Work Phone: [facility] 02-02-2023 09:32-0400 Body temperature 97.2 [degF] Marco A Esqueda MD Work Phone: [facility] 02-02-2023 09:32-0400 Body weight 96.62 kg Marco A Esqueda MD Work Phone: [facility] 02-02-2023 09:32-0400 Diastolic blood pressure 43 mm[Hg] Marco A Esqueda MD Work Phone: [facility] 02-02-2023 09:32-0400 Heart rate 50 /min Marco A Esqueda MD Work Phone: [facility] 02-02-2023 09:32-0400 Respiratory rate 16 /min Marco A Esqueda MD Work Phone: [facility] 02-02-2023 09:32-0400 SaO2% (BldA) [Mass fraction] 97 % Marco A Esqueda MD Work Phone: [facility] 02-02-2023 09:32-0400 Systolic blood pressure 131 mm[Hg] Marco A Esqueda MD Work Phone: [facility] 11-10-2022 09:30-0400 Body height 167.6 cm Christo Howard APRN.PHP DEVELOPER Work Phone: [facility] 11-10-2022 09:30-0400 Body temperature 97.11 [degF] Christo Duke LAN ENGINEER.PHP DEVELOPER Work Phone: [facility] 11-10-2022 09:30-0400 Body weight 96.44 kg Christo Howard APRN.PHP DEVELOPER Work Phone: [facility] 11-10-2022 09:30-0400 Diastolic blood pressure 68 mm[Hg] Christo Howard LAN ENGINEER.PHP DEVELOPER Work Phone: [facility] 11-10-2022 09:30-0400 Heart rate 54 /min Christo Howard APRN.PHP DEVELOPER Work Phone: [facility] 11-10-2022 09:30-0400 Respiratory rate 16 /min Christo Howard APRN.PHP DEVELOPER Work Phone: [facility] 11-10-2022 09:30-0400 SaO2% (BldA) [Mass fraction] 98 % Christo Howard APRN.PHP DEVELOPER Work Phone: [facility] 11-10-2022 09:30-0400 Systolic blood pressure 134 mm[Hg] Christo Howard LAN ENGINEER.PHP DEVELOPER Work Phone: [facility] 09-16-2022 08:30-0500 Body height 168.91 cm Jamar Ball Other [employer] Other 09-16-2022 08:30-0500 Body mass index (BMI) [Ratio] 33.16 kg/m2 Jamar Ball Other [employer] Other 09-16-2022 08:30-0500 Body weight 94.62 kg Jamar Ball Other [employer] Other 09-16-2022 08:30-0500 Diastolic blood pressure 78 mm[Hg] Jamar Ball Other [employer] Other 09-16-2022 08:30-0500 Respiratory rate 12 /min Jamar Ball Other [employer] Other 09-16-2022 08:30-0500 Systolic blood pressure 116 mm[Hg] Jamar Ball Other [employer] Other 09-09-2022 08:30-0500 Body height 168.91 cm Jamar Ball Other [employer] Other 09-09-2022 08:30-0500 Body mass index (BMI) [Ratio] 33.45 kg/m2 Jamar Ball Other [employer] Other 09-09-2022 08:30-0500 Body weight 95.44 kg Jamar Ball Other [employer] Other 09-09-2022 08:30-0500 Diastolic blood pressure 76 mm[Hg] Jamar Ball Other [employer] Other 09-09-2022 08:30-0500 Respiratory rate 12 /min Jamar Ball Other [employer] Other 09-09-2022 08:30-0500 Systolic blood pressure 118 mm[Hg] Jamar Ball Other [employer] Other 09-09-2022 07:30-0500 Body height 168.91 cm Jamar Ball Other [employer] Other 09-09-2022 07:30-0500 Body mass index (BMI) [Ratio] 33.45 kg/m2 Jamar Ball Other [employer] Other 09-09-2022 07:30-0500 Body weight 95.44 kg Jamar Ball Other [employer] Other 09-09-2022 07:30-0500 Diastolic blood pressure 76 mm[Hg] Jamar Ball Other [employer] Other 09-09-2022 07:30-0500 Respiratory rate 12 /min Jamar Ball Other [employer] Other 09-09-2022 07:30-0500 Systolic blood pressure 118 mm[Hg] Jamar Ball Other [employer] Other 08-11-2022 09:24-0500 Body height 167.6 cm Marco A Esqueda MD Work Phone: [facility] 08-11-2022 09:24-0500 Body temperature 97 [degF] Marco A Esqueda MD Work Phone: [facility] 08-11-2022 09:24-0500 Body weight 96.44 kg Marco A Esqueda MD Work Phone: [facility] 08-11-2022 09:24-0500 Diastolic blood pressure 56 mm[Hg] Marco A Esqueda MD Work Phone: [facility] 08-11-2022 09:24-0500 Heart rate 53 /min Marco A Esqueda MD Work Phone: [facility] 08-11-2022 09:24-0500 Respiratory rate 16 /min Marco A Esqueda MD Work Phone: [facility] 08-11-2022 09:24-0500 SaO2% (BldA) [Mass fraction] 97 % Marco A Esqueda MD Work Phone: [facility] 08-11-2022 09:24-0500 Systolic blood pressure 129 mm[Hg] Marco A Esqueda MD Work Phone: [facility] 07-21-2022 15:30-0500 Body height 168.91 cm Jamar Ball Other [employer] Other 07-21-2022 15:30-0500 Body mass index (BMI) [Ratio] 34.18 kg/m2 Jamar Ball Other [employer] Other 07-21-2022 15:30-0500 Body weight 97.52 kg Jamar Ball Other [facility] Other 07-21-2022 15:30-0500 Diastolic blood pressure 76 mm[Hg] Jamar Ball Other [facility] Other 07-21-2022 15:30-0500 Respiratory rate 16 /min Jamar Ball Other [facility] Other 07-21-2022 15:30-0500 Systolic blood pressure 118 mm[Hg] Jamar Ball Other [facility] Other 05-13-2022 09:07-0400 Blood Pressure Location Anthony SCRUGGS [facility] 05-13-2022 09:07-0400 Diastolic blood pressure 72 mm[Hg] Anthony SCRUGGS [facility] 05-13-2022 09:07-0400 Heart rate 55 /min Anthony SCRUGGS [facility] 05-13-2022 09:07-0400 Respiratory rate 16 /min Anthony SCRUGGS [facility] 05-13-2022 09:07-0400 Systolic blood pressure 108 mm[Hg] Anthony SCRUGGS [facility] 05-12-2022 10:41-0400 Body temperature 97.81 [degF] LUAN Khan MD Work Phone: [facility] 05-12-2022 10:41-0400 Body weight 95.07 kg LUAN Khan MD Work Phone: [facility] 05-12-2022 10:41-0400 Diastolic blood pressure 42 mm[Hg] LUAN Khan MD Work Phone: [facility] 05-12-2022 10:41-0400 Heart rate 51 /min LUAN Khan MD Work Phone: [facility] 05-12-2022 10:41-0400 Respiratory rate 18 /min LUAN Khan MD Work Phone: [facility] 05-12-2022 10:41-0400 SaO2% (BldA) [Mass fraction] 99 % LUAN Khan MD Work Phone: [facility] 05-12-2022 10:41-0400 Systolic blood pressure 134 mm[Hg] LUAN Khan MD Work Phone: [facility] 02-17-2022 09:36-0400 Body height 167.6 cm Marco A Esqueda MD Work Phone: [facility] 02-17-2022 09:36-0400 Body temperature 97.9 [degF] Marco A Esqueda MD Work Phone: [facility] 02-17-2022 09:36-0400 Body weight 97.07 kg Marco A Esqueda MD Work Phone: [facility] 02-17-2022 09:36-0400 Diastolic blood pressure 58 mm[Hg] Marco A Esqueda MD Work Phone: [facility] 02-17-2022 09:36-0400 Heart rate 63 /min Marco A Esqueda MD Work Phone: [facility] 02-17-2022 09:36-0400 Respiratory rate 16 /min Marco A Esqueda MD Work Phone: [facility] 02-17-2022 09:36-0400 SaO2% (BldA) [Mass fraction] 99 % Marco A Esqueda MD Work Phone: [facility] 02-17-2022 09:36-0400 Systolic blood pressure 133 mm[Hg] Marco A Esqueda MD Work Phone: [facility] 11-18-2021 10:50-0400 Body temperature 97.7 [degF] [facility] [place] Work Phone: [facility] 11-18-2021 10:50-0400 Diastolic blood pressure 63 mm[Hg] [facility] [place] Work Phone: [facility] 11-18-2021 10:50-0400 Heart rate 60 /min [facility] [place] Work Phone: [facility] 11-18-2021 10:50-0400 Respiratory rate 18 /min [facility] [place] Work Phone: [facility] 11-18-2021 10:50-0400 SaO2% (BldA) [Mass fraction] 95 % [facility] [place] Work Phone: [facility] 11-18-2021 10:50-0400 Systolic blood pressure 139 mm[Hg] [facility] [place] Work Phone: [facility] 11-11-2021 13:58-0400 Body height 167.6 cm Marco A Esqueda MD Work Phone: [facility] 11-11-2021 13:58-0400 Body temperature 97.39 [degF] Marco A Esqueda MD Work Phone: [facility] 11-11-2021 13:58-0400 Body weight 98.97 kg Marco A Esqueda MD Work Phone: [facility] 11-11-2021 13:58-0400 Diastolic blood pressure 54 mm[Hg] Marco A Esqueda MD Work Phone: [facility] 11-11-2021 13:58-0400 Heart rate 68 /min Marco A Esqueda MD Work Phone: [facility] 11-11-2021 13:58-0400 Respiratory rate 16 /min Marco A Esqueda MD Work Phone: [facility] 11-11-2021 13:58-0400 SaO2% (BldA) [Mass fraction] 98 % Marco A Esqueda MD Work Phone: [facility] 11-11-2021 13:58-0400 Systolic blood pressure 130 mm[Hg] Marco A Esqueda MD Work Phone: [facility] 11-08-2021 13:03-0400 Blood Pressure Location Anthony SCRUGGS [facility] 11-08-2021 13:03-0400 Diastolic blood pressure 60 mm[Hg] Anthony SCRUGGS [facility] 11-08-2021 13:03-0400 Heart rate 61 /min Anthony SCRUGGS [facility] 11-08-2021 13:03-0400 Systolic blood pressure 135 mm[Hg] Anthony SCRUGGS [facility] Encounters Encounter Date Encounter Type Care Provider Facility Start: 10-07-2024 ambulatory Anthony Bloomi ty:NORA Roberts Start: 08-01-2024 End: 08-01-2024 ambulatory JAMAR FALL Facility:[facility] Start: 05-09-2024 End: 05-09-2024 ambulatory [facility] [place] Work Phone: Hematology/Oncology Comment on above: Malignant neoplasm o f prostate (HCC) (Primary Dx) Start: 05-09-2024 End: 05-09-2024 Patient encounter procedure Marco A Esqueda MD Work Phone: Hematology/Oncology Start: 05-08-2024 End: 05-08-2024 Refill Aida Luo [facility] Work Phone: [facility] Comment on above: Refill Request Start: 05-03-2024 End: 05-03-2024 ambulatory JAMAR FALL Facility:[facility] Start: 04-19-2024 End: 04-19-2024 ambulatory Anthony SCRUGGS [facility] Start: 04-19-2024 End: 04-19-2024 Patient encounter procedure Anthony SCRUGGS [facility] Start: 04-01-2024 End: 04-01-2024 Refill Marco A Esqueda MD Work Phone: Hematology/Oncology Comment on above: Refill Request Start: 04-01-2024 End: 04-01-2024 Refill Aida Luo [facility] Work Phone: [facility] Comment on above: Refill Request Start: 03-29-2024 Encounter for preprocedural cardiovascular examination [facility] Start: 03-29-2024 End: 04-01-2024 ambulatory [facility] Start: 03-29-2024 End: 04-01-2024 Encounter for other preprocedural examination [facility] Start: 03-29-2024 End: 04-01-2024 Encounter for preprocedural cardiovascular examination [facility] Start: 03-26-2024 End: 03-26-2024 ambulatory [facility] Work Phone: Start: 03-26-2024 End: 03-26-2024 Patient encounter procedure [facility] Work Phone: Start: 02-29-2024 End: 02-29-2024 ambulatory ALEXIA FRANCO Not Available Start: 02-26-2024 End: 02-26-2024 ambulatory LONG BOO Not Available Start: 02-02-2024 End: 02-02-2024 ambulatory [facility] Krishnan Work Phone: Hematology/Oncology Comment on above: Malignant neoplasm o f prostate (HCC) (Primary Dx) Start: 02-02-2024 End: 02-02-2024 Patient encounter procedure Lynne Alarcon APRN.PHP DEVELOPER Work Phone: Hematology/Oncology Comment on above: Malignant neoplasm o f prostate (HCC) (Primary Dx) Start: 01-25-2024 End: 01-25-2024 ambulatory JAMAR FALL Facility:[facility] Start: 01-25-2024 Non-patient / Non-visit [facility] Work Phone: Start: 11-23-2023 End: 11-23-2023 ambulatory [facility] Work Phone: Start: 11-23-2023 End: 11-23-2023 Patient encounter procedure [facility] Work Phone: Start: 11-02-2023 End: 11-02-2023 ambulatory [facility]hu [place] Work Phone: Hematology/Oncology Comment on above: Malignant neoplasm o f prostate (HCC) (Primary Dx) Malignant neoplasm o f prostate (HCC) (Primary Dx); Essential hypertension; 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 pectoris, unspecified vessel or lesion type; Type 2 diabetes mellitus without complication, without long-term current use of insulin (HCC); Lesion of skin of right ear; Abdominal discomfort Start: 11-02-2023 End: 11-02-2023 Patient encounter procedure Christo Howard APRN.PHP DEVELOPER Work Phone: [facility] Start: 10-30-2023 End: 10-30-2023 ambulatory JAMAR FALL Facility:[facility] Start: 10-30-2023 Non-patient / Non-visit [facility] Work Phone: Start: 10-20-2023 End: 10-20-2023 ambulatory Anthony SCRUGGS Facility:[facility] Start: 10-20-2023 End: 10-20-2023 Patient encounter procedure Anthony SCRUGGS [facility] Start: 10-09-2023 Non-patient / Non-visit [facility] Work Phone: Start: 09-28-2023 End: 09-28-2023 ambulatory PABLO CHRISTINA Not Available Start: 09-12-2023 End: 09-12-2023 Patient encounter procedure [facility] Work Phone: Start: 09-06-2023 Non-patient / Non-visit [facility] Work Phone: Start: 08-28-[address] Bamboo flowsheet [address]j [address] LAN ENGINEER-PHP DEVELOPER Work Phone: [facility] Start: 08-28-2023 Bamboo flowsheet [address] A Fel [address] LAN ENGINEER-PHP DEVELOPER Work Phone: [facility] Start: 08-28-2023 End: 08-28-2023 Patient encounter procedure Long Boo LAN ENGINEER-PHP DEVELOPER Work Phone: [facility] Comment on above: Neoplasm of unspecif ied behavior of bone, soft tissue, and skin; Actinic keratosis Start: 08-28-2023 End: 08-28-2023 ambulatory LONG BOO Not Available Start: 08-24-2023 End: 08-24-2023 ambulatory Jamar Fall Other [employer] Other Start: 08-24-2023 Patient encounter procedure Jamar Fall [facility] Start: 08-04-2023 End: 08-04-2023 ambulatory Jamar aFll Other [employer] Other Start: 08-04-2023 Telephone encounter Jamar EDMONDS [facility] Start: 06-22-2023 End: 06-22-2023 ambulatory EHAB [facility] Start: 06-05-2023 Telephone encounter Jamar EDMONDS [facility] Start: 06-05-2023 End: 06-05-2023 ambulatory EMELINA LOUIS [facility] Other Start: 05-30-2023 End: 05-30-2023 ambulatory Jamar aFll Other [employer] Other Start: 05-30-2023 Office outpatient vi sit 15 minutes Jamar Fall [facility] Start: 05-01-2023 End: 05-01-2023 ambulatory Jamar Fall Other [employer] Other Start: 05-01-2023 Office outpatient vi sit 15 minutes Jamar Ball [facility] Start: 04-27-2023 Telephone encounter Jamar Fall [facility] Start: 04-27-2023 End: 04-27-2023 ambulatory Lab[facility] Work Phone: Hematology/Oncology Comment on above: Malignant neoplasm o f prostate (HCC) (Primary Dx) Malignant neoplasm o f prostate (HCC) (Primary Dx); 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 pectoris, unspecified vessel or lesion type; Essential hypertension; Type 2 diabetes mellitus without complication, without long-term current use of insulin (HCC) Start: 04-27-2023 End: 04-27-2023 Patient encounter procedure Christo Howard APRN.CNP Work Phone: [facility] Start: 04-25-2023 End: 04-25-2023 ambulatory Jamar Fall Other [employer] Other Start: 04-25-2023 Telephone encounter Jamar Fall [facility] Start: 04-18-2023 End: 04-18-2023 ambulatory Jamar Fall Other [employer] Other Start: 04-18-2023 Telephone encounter Jamar Ball [facility] Start: 04-17-2023 End: 04-17-2023 Patient encounter procedure Anthony SCRUGGS [facility] Start: 04-12-2023 End: 04-12-2023 ambulatory Jamar Fall Other [employer] Other Start: 04-12-2023 Telephone encounter Jamar Ball [facility] Start: 04-06-2023 End: 04-06-2023 ambulatory Jamar Fall Other [employer] Other Start: 04-06-2023 Telephone encounter Jamar EDMONDS [facility] Start: 04-05-2023 End: 04-05-2023 ambulatory Jamar Fall Other [employer] Other Start: 04-05-2023 Office outpatient vi sit 15 minutes Jamar Fall [facility] Start: 04-05-2023 Telephone encounter Jamar EDMONDS [facility] Start: 03-15-2023 End: 03-15-2023 ambulatory Jamar Fall Other [employer] Other Start: 03-15-2023 Office outpatient vi sit 25 minutes Jamar Fall [facility] Start: 02-05-2023 End: 02-05-2023 ambulatory Jamar Fall Other [employer] Other Start: 02-05-2023 Telephone encounter Jamar EDMONDS [facility] Start: 02-02-2023 End: 02-02-2023 ambulatory Lab/Port Himanshu Ariella Work Phone: Hematology/Oncology Comment on above: Malignant neoplasm o f prostate (HCC) (Primary Dx) Start: 02-02-2023 End: 02-02-2023 Patient encounter procedure Marco A Esqueda MD Work Phone: [employer] Start: 11-15-2022 End: 11-15-2022 ambulatory Jamar Fall Other [employer] Other Start: 11-15-2022 Encounter by [employer] Jamar Fall [facility] Start: 11-11-2022 End: 11-11-2022 ambulatory Jamar Fall Other [employer] Other Start: 11-11-2022 Encounter by [employer] Jamar Fall [facility] Start: 11-10-2022 End: 11-10-2022 ambulatory Lab/Port Himanshu Ariella Work Phone: Hematology/Oncology Comment on above: Malignant neoplasm o f prostate (HCC) (Primary Dx) Malignant neoplasm o f prostate (HCC) (Primary Dx); 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 pectoris, unspecified vessel or lesion type; Essential hypertension; Type 2 diabetes mellitus without complication, without long-term current use of insulin (HCC) Start: 11-10-2022 End: 11-10-2022 Patient encounter procedure Christo Howard APRN.CNP Work Phone: [employer] Start: 10-25-2022 End: 10-26-[address] ANTHONY SCRUGGS . Facility: Start: 09-16-2022 End: 09-16-2022 ambulatory Jamar Fall Other [employer] Other Start: 09-16-2022 Office outpatient vi sit 15 minutes Jamar Fall [facility] Start: 09-09-2022 End: 09-09-2022 ambulatory Jamar Fall Other [employer] Other Start: 09-09-2022 Patient encounter procedure Jamar Fall [facility] Start: 09-05-2022 End: 09-06-[address] DE LISTED REQUEST Facility: Start: 08-11-2022 End: 08-11-2022 ambulatory Lab/Port Himanshu Boise Work Phone: Hematology/Oncology Comment on above: Malignant neoplasm o f prostate (HCC) (Primary Dx) Malignant neoplasm o f prostate (HCC) (Primary Dx); Bone metastasis (HCC); 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 pectoris, unspecified vessel or lesion type; Essential hypertension; Type 2 diabetes mellitus without complication, without long-term current use of insulin (HCC) Start: 08-11-2022 End: 08-11-2022 Patient encounter procedure Marco A Esqueda MD Work Phone: [employer] Start: 07-21-2022 End: 07-22-[address] JAMAR FALL [employer] Other Start: 07-21-2022 Office outpatient vi sit 15 minutes Jamar Fall [facility] Start: 07-21-2022 Patient encounter procedure Jamar Fall [facility] Start: 07-21-2022 Telephone encounter Jamar Fall [facility] Start: 05-27-2022 End: 05-28-2022 ambulatory NONE LISTED REQUEST Facility: Start: 05-13-2022 End: 05-13-2022 Patient encounter procedure Anthony SCRUGGS [facility] Start: 05-12-2022 End: 05-12-2022 Patient encounter [...] encounter procedure Anthony SCRUGGS [facility] Start: 11-05-2021 End: 11-06-[address] MARCO A ESQUEDA Facility: Start: 11-04-2021 ambulatory Clementine lee RN Work Phone: Hematology/Oncology Comment on above: Oral Anti-cancer Age nt Education (Enzalutamide) Start: 11-04-2021 Telephone encounter Aida Coles [facility] Work Phone: Hematology/Oncology Comment on above: Medication [...] 07-22-2021 Adult health examination Bam Fall Other [employer] Other Procedures Date Procedure Procedure Detail Performing Clinician Start: 08-28-2023 CRYOTHERAPY SKIN LESION Long Iraj Boo LAN ENGINEER-PHP DEVELOPER Work Phone: Start: 08-28-2023 SKIN / NAIL BIOPSY Windy mira Iraj Boo LAN ENGINEER-PHP DEVELOPER Work Phone: Start: 07-17-2023 Decompression of med anthony nerve Anthony SCRUGGS Start: 10-25-[address] JESE FALL Comment on above: Performed By: #### P SAD #### [facility] [address], [place] [address] Dr[address] Bharati Aguiar Start: 05-05-[address] JESE FALL Comment on above: Performed By: #### P SAD ####[facility] [id number] [place], [place] [address]JeDr. Bharati Aguiar Start: 02-16-2022 Adult depression scr [...] DTaP,Tdap,Td Vaccine (6 - Td or Tdap) [facility] Start: 05-03-2027 Diabetes Screening Diabetes Screening [facility] Start: 01-24-2027 Diabetes Screening Diabetes Screening [facility] Start: 10-29-2026 Diabetes Screening Diabetes Screening [facility] Start: 04-24-2026 Diabetes Screening Diabetes Screening [facility] Start: 02-02-2026 DIABETES SCREEN DIABETES SCREEN [facility] Start: 11-10-2025 DIABETES SCREEN DIABETES SCREEN [facility] Start: 08-11-2025 DIABETES SCREEN DIABETES SCREEN [facility] Start: 05-12-2025 DIABETES SCREEN DIABETES SCREEN [facility] Start: 02-17-2025 DIABETES SCREEN DIABETES SCREEN [facility] Start: 11-11-2024 DIABETES SCREEN DIABETES SCREEN [facility] Start: 08-08-2024 End: 08-08-2024 Follow-up encounter Hematology/Oncology Comment on above: 3 month lab follow up with xgeva inj Start: 08-01-2024 End: 08-01-2024 Patient encounter procedure 08/01/2024 9:00 AM EST Office Visit [facility] [address] [place] [address] 3 month labs [facility] Comment on above: 3 month labs Start: 05-09-2024 End: 05-09-2024 Follow-up encounter Hematology/Oncology Comment on above: 3 month lab follow up with xgeva inj Start: 05-07-2024 End: 05-07-2024 Patient encounter procedure 05/07/2024 9:00 AM EDT Office Visit [facility] [address] [place] [address] 3 month lab follow up with xgeva inj [facility] Comment on above: 3 month lab follow up with xgeva inj Start: 05-03-2024 End: 05-03-2024 Patient encounter procedure 05/03/2024 9:00 AM EDT Office Visit [facility] [address] [place] [address] 3 month lab follow up with xgeva inj [facility] Comment on above: 3 month lab follow up with xgeva inj Start: 04-29-2024 End: 07-29-2024 CBC W Auto Differential panel - Blood COMPLETE BLOOD COUNT AND DIFFERENTIAL Lab Routine Malignant neoplasm of prostate (HCC) Expected: 04/29/2024, Expires: 07/29/2024 [facility] Work Phone: Comment on above: Expected: 04/29/2024, Expires: Start: 04-29-2024 End: 07-29-2024 Comprehensive metabolic 2000 panel - Serum or Plasma COMPREHENSIVE METABOLIC PANEL Lab Routine Malignant neoplasm of prostate (HCC) Expected: 04/29/2024, Expires: 07/29/2024 [facility] Comment on above: Expected: 04/29/2024, Expires: Start: 04-29-2024 End: 07-29-2024 Prostate specific Ag [Mass/volume] in Serum or Plasma PROSTATE-SPECIFIC ANTIGEN DIAGNOSTIC Lab Routine Malignant neoplasm of prostate (HCC) Expected: 04/29/2024, Expires: 07/29/2024 [facility] Comment on above: Expected: 04/29/2024, Expires: 5 Start: 03-17-2024 Covid-19 Vaccine () Covid-19 Vaccine () [facility] Start: 03-17-2024 Influenza [facility] Start: 02-26-2024 End: 02-26-2024 Patient encounter procedure 02/26/2024 10:10 AM EDT Office Visit [facility] [address] [place] [address] Long Boo APRN-PHP DEVELOPER [address] [place] [address] [facility] Start: 11-03-2023 End: 02-02-2024 CBC W Auto Differential panel - Blood COMPLETE BLOOD COUNT AND DIFFERENTIAL Lab Routine Malignant neoplasm of prostate (HCC) Essential hypertension 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 pectoris, unspecified vessel or lesion type Type 2 diabetes mellitus without complication, without long-term current use of insulin (HCC) Lesion of skin of right ear Abdominal discomfort Expected: 11/03/2023, Expires: 02/02/2024 [facility] Work Phone: Comment on above: Expected: 11/03/2023, Expires: Start: 11-03-2023 End: 02-02-2024 Comprehensive metabolic 2000 panel - Serum or Plasma COMPREHENSIVE METABOLIC PANEL Lab Routine Malignant neoplasm of prostate (HCC) Essential hypertension 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 pectoris, unspecified vessel or lesion type Type 2 diabetes mellitus without complication, without long-term current use of insulin (HCC) Lesion of skin of right ear Abdominal discomfort Expected: 11/03/2023, Expires: 02/02/2024 [facility] Work Phone: Comment on above: Expected: 11/03/2023, Expires: Start: 11-03-2023 End: 02-02-2024 Prostate specific Ag [Mass/volume] in Serum or Plasma PROSTATE-SPECIFIC ANTIGEN DIAGNOSTIC Lab Routine Malignant neoplasm of prostate (HCC) Essential hypertension 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 pectoris, unspecified vessel or lesion type Type 2 diabetes mellitus without complication, without long-term current use of insulin (HCC) Lesion of skin of right ear Abdominal discomfort Expected: 11/03/2023, Expires: 02/02/2024 [facility] Work Phone: Comment on above: Expected: 11/03/2023, Expires: Start: 08-28-2023 End: 08-28-2023 Patient encounter procedure 08/28/2023 11:25 AM EST Office Visit [facility] [address] [place] [id number] Long Boo APRN-PHP DEVELOPER [address] [place] [address] Arrived [facility] Comment on above: Arrived Start: 07-28-2023 End: 09-27-2023 CBC W Auto Differential panel - Blood CBC + DIFF Lab Routine Malignant neoplasm of prostate (HCC) 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 pectoris, unspecified vessel or lesion type Essential hypertension Type 2 diabetes mellitus without complication, without long-term current use of insulin (HCC) Expected: 07/28/2023, Expires: 09/27/2023 [facility] Work Phone: Comment on above: Expected: 07/28/2023, Expires: Start: 07-28-2023 End: 09-27-2023 Comprehensive metabolic 2000 panel - Serum or Plasma COMP METABOLIC PANEL Lab Routine Malignant neoplasm of prostate (HCC) 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 pectoris, unspecified vessel or lesion type Essential hypertension Type 2 diabetes mellitus without complication, without long-term current use of insulin (HCC) Expected: 07/28/2023, Expires: 09/27/2023 [facility] Work Phone: Comment on above: Expected: 07/28/2023, Expires: Start: 07-28-2023 End: 09-27-2023 Prostate specific Ag [Mass/volume] in Serum or Plasma PSA/PROSTSPECAG DIAG Lab Routine Malignant neoplasm of prostate (HCC) 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 pectoris, unspecified vessel or lesion type Essential hypertension Type 2 diabetes mellitus without complication, without long-term current use of insulin (HCC) Expected: 07/28/2023, Expires: 09/27/2023 [facility] Work Phone: Comment on above: Expected: 07/28/2023, Expires: Start: 07-17-2023 Advance Directive Discussion Advance Directive Discussion [facility] Start: 07-17-2023 Behavioral Health Screening Behavioral Health Screening [facility] Start: 06-19-2023 Urine microalbumin profile [facility] Start: 05-03-2023 End: 07-03-2023 Basic metabolic 2000 panel - Serum or Plasma BASIC METABOLIC PNL Lab Routine Malignant neoplasm of prostate (HCC) Expected: 05/03/2023 (Approximate), Expires: 07/03/2023 [facility] Work Phone: Comment on above: Expected: 05/03/2023 (Approximate), Expi res: 07/03/2023 Start: 05-03-2023 End: 07-03-2023 CBC W Auto Differential panel - Blood CBC + DIFF Lab Routine Malignant neoplasm of prostate (HCC) Expected: 05/03/2023 (Approximate), Expires: 07/03/2023 [facility] Work Phone: Comment on above: Expected: 05/03/2023 (Approximate), Expi res: 07/03/2023 Start: 05-03-2023 End: 07-03-2023 Prostate specific Ag [Mass/volume] in Serum or Plasma PSA/PROSTSPECAG DIAG Lab Routine Malignant neoplasm of prostate (HCC) Expected: 05/03/2023 (Approximate), Expires: 07/03/2023 [facility] Work Phone: Comment on above: Expected: 05/03/2023 (Approximate), Expi res: 07/03/2023 Start: 05-03-2023 End: 07-03-2023 Testosterone [Mass/volume] in Serum or Plasma TESTOSTERONE TOTAL Lab Routine Malignant neoplasm of prostate (HCC) Expected: 05/03/2023 (Approximate), Expires: 07/03/2023 [facility] Work Phone: Comment on above: Expected: 05/03/2023 (Approximate), Expi res: 07/03/2023 Start: 03-17-2023 Covid-19 Vaccine () Covid-19 Vaccine () [facility] Start: 03-17-2023 Influenza vaccination [facility] Start: 02-16-2023 Adult depression screening assessment DEPRESSION SCREENING [facility] Start: 02-09-2023 End: 04-11-2023 CBC W Auto Differential panel - Blood CBC + DIFF Lab Routine Malignant neoplasm of prostate (HCC) 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 pectoris, unspecified vessel or lesion type Essential hypertension Type 2 diabetes mellitus without complication, without long-term current use of insulin (HCC) Expected: 02/09/2023, Expires: 04/11/2023 [facility] Work Phone: Comment on above: Expected: 02/09/2023, Expires: Start: 02-09-2023 End: 04-11-2023 Comprehensive metabolic 2000 panel - Serum or Plasma COMP METABOLIC PANEL Lab Routine Malignant neoplasm of prostate (HCC) 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 pectoris, unspecified vessel or lesion type Essential hypertension Type 2 diabetes mellitus without complication, without long-term current use of insulin (HCC) Expected: 02/09/2023, Expires: 04/11/2023 [facility] Work Phone: Comment on above: Expected: 02/09/2023, Expires: Start: 02-09-2023 End: 04-11-2023 Prostate specific Ag [Mass/volume] in Serum or Plasma PSA/PROSTSPECAG DIAG Lab Routine Malignant neoplasm of prostate (HCC) 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 pectoris, unspecified vessel or lesion type Essential hypertension Type 2 diabetes mellitus without complication, without long-term current use of insulin (HCC) Expected: 02/09/2023, Expires: 04/11/2023 [facility] Work Phone: Comment on above: Expected: 02/09/2023, Expires: 3 Start: 11-10-2022 Adult depression screening assessment DEPRESSION SCREENING [facility] Start: 08-22-2022 COVID-19 VACCINE (6 - Moderna series) COVID-19 VACCINE (6 - Moderna series) [facility] Start: 07-17-2022 ADVANCE DIRECTIVE DISCUSSION ADVANCE DIRECTIVE DISCUSSION [facility] Start: 07-17-2022 DEPRESSION ASSESSMENT DEPRESSION ASSESSMENT [facility] Start: 05-03-2022 Adult depression screening assessment DEPRESSION SCREENING [facility] Start: 05-03-2022 End: 07-03-2022 CBC W Auto Differential panel - Blood CBC + DIFF Lab Routine Malignant neoplasm of prostate (HCC) Expected: 05/03/2022, Expires: 07/03/2022 [facility] Work Phone: Comment on above: Expected: 05/03/2022, Expires: 2 Start: 05-03-2022 End: 07-03-2022 Comprehensive metabolic 2000 panel - Serum or Plasma COMP METABOLIC PANEL Lab Routine Malignant neoplasm of prostate (HCC) Expected: 05/03/2022, Expires: 07/03/2022 [facility] Work Phone: Comment on above: Expected: 05/03/2022, Expires: 2 Start: 05-03-2022 End: 07-03-2022 Prostate specific Ag [Mass/volume] in Serum or Plasma PSA/PROSTSPECAG DIAG Lab Routine Malignant neoplasm of prostate (HCC) Expected: 05/03/2022, Expires: 07/03/2022 [facility] Work Phone: Comment on above: Expected: 05/03/2022, Expires: 2 Start: 03-17-2022 Influenza vaccination [facility] Start: 11-02-2021 End: 01-02-2022 CBC W Auto Differential panel - Blood CBC + DIFF Lab Routine Malignant neoplasm of prostate (HCC) Expected: 11/02/2021, Expires: 01/02/2022 [facility] Work Phone: Comment on above: Expected: 11/02/2021, Expires: 2 Start: 11-02-2021 End: 01-02-2022 Comprehensive metabolic 2000 panel - Serum or Plasma COMP METABOLIC PANEL Lab Routine Malignant neoplasm of prostate (HCC) Expected: 11/02/2021, Expires: 01/02/2022 [facility] Work Phone: Comment on above: Expected: 11/02/2021, Expires: 2 Start: 09-14-2021 COVID-19 VACCINE (5 - Booster) COVID-19 VACCINE (5 - Booster) [facility] Start: 08-17-2021 COVID-19 VACCINE (4 - Booster for Moderna series) COVID-19 VACCINE (4 - Booster for Moderna series) [facility] Start: 07-17-2021 ADVANCE DIRECTIVE DISCUSSION ADVANCE DIRECTIVE DISCUSSION [facility] Start: 07-17-2021 DEPRESSION ASSESSMENT DEPRESSION ASSESSMENT [facility] Start: 02-22-2021 COVID-19 VACCINE (3 - Booster for Moderna series) COVID-19 VACCINE (3 - Booster for Moderna series) [facility] Start: 06-07-2015 PNEUMOVAX AGE 65 AND OVER WITH 5YR LOOKBACK (#1) PNEUMOVAX AGE 65 AND OVER WITH 5YR LOOKBACK (#1) [facility] Start: 06-20-2013 Urine microalbumin profile DTAP,TDAP,TD (1 - Tdap) [facility] Start: 08-22-2012 SHINGRIX VACCINE (2 of 3) SHINGRIX VACCINE (2 of 3) [facility] Start: 2006 RSV Vaccine (1 - 1-dose 60+ series) RSV Vaccine (1 - 1-dose 60+ series) [facility] Start: 02-14-1996 SHINGRIX VACCINE (1 of 2) SHINGRIX VACCINE (1 of 2) [facility] Start: 1991 COLOGUARD (FIT-DNA) COLOGUARD (FIT-DNA) [facility] Start: 1991 Colonoscopy COLONOSCOPY [facility] Start: 1991 COLORECTAL CANCER SCREENING COLORECTAL CANCER SCREENING [facility] Start: [address] COLONOGRAPHY [facility] Start: 1991 DIABETES SCREEN DIABETES SCREEN [facility] Start: 1991 FECAL OCCULT BLOOD FECAL OCCULT BLOOD [facility] Start: 1991 SIGMOIDOSCOPY SIGMOIDOSCOPY [facility] Start: 1981 LIPID SCREEN LIPID SCREEN [facility] Start: 02-14-1964 Anxiety Screening Anxiety Screening [facility] Start: 02-14-1964 Depression Screening Depression Screening [facility] Start: 02-14-1964 HEPATITIS C SCREENING HEPATITIS C SCREENING [facility] Start: 02-14-1964 Hepatitis C screening Hepatitis C Screening [facility] Dermatopathology exam Dermatopat hology exam Pathology and Cytology Timed Neoplasm of unspecified behavior of bone, soft tissue, and skin Release Upon Ordering for 1 Occurrences starting 08/28/2023 [facility] Work Phone: Comment on above: Release Upon Ordering for 1 Occurrences starting 08/28/2023 MR Cervical spine WO contrast [facility] US Extremity [facility] Immunizations Immunization Date Immunization Notes Care Provider Fa cilisaúl 03-26-2024 influenza, high dose seasonal, preservative-free [facility] 05-01-2023 influenza virus vaccine, unspecified formulation [facility] 05-01-2023 influenza, high dose seasonal, preservative-free Jamar Fall Other [facility] 04-28-2022 influenza nasal, unspecified formulation Lab/[facility] Work Phone: [facility] 04-28-2022 influenza, high-dose , quadrivalent vaccine (FLUZONE HIGH DOSE QUADRIVALENT) [facility] Work Phone: [facility] 04-28-2022 influenza, high dose seasonal, preservative-free Jamar Fall Other [facility] 04-28-2022 influenza virus vaccine, unspecified formulation [facility] Work Phone: [facility] 04-21-2022 COVID-19 booster vaccine, age 12+ yr, bivalent (MODERNA) [facility] Work Phone: [facility] Comment on above: Result Comment: 2023: [id number] 01-21-2022 COVID-19 Vaccine Moderna - Documentation Purposes Only Jamar Juan David Other [facility] Comment on above: Result Comment: 2023: [id number] 05-17-2021 COVID-19 Vaccine Moderna - Documentation Purposes Only Jamar Fall Other [facility] Comment on above: Result Comment: 2023: [id number] 04-22-2021 influenza virus vaccine, split virus (incl. purified surface antigen) Jamar Juan David Other [facility] 04-22-2021 influenza virus vaccine, unspecified formulation [facility] 04-16-2021 influenza nasal, unspecified formulation Marco A Esqueda MD Work Phone: [facility] 04-16-2021 influenza virus vaccine, unspecified formulation Anthony SCRUGSG [facility] 09-22-2020 COVID-19 Vaccine Moderna - Documentation Purposes Only Jamar Fall Other [facility] 08-26-2020 SARS-CoV-2 (COVID-19 ) Ad26 vaccine, recombinant Anthony SCRUGGS [facility] 08-24-2020 COVID-19 original vaccine, full dose, monovalent (MODERNA) [facility] Work Phone: [facility] 07-17-2020 SARS-CoV-2 (COVID-19 ) [id number] vaccine Anthony SCRUGGS [facility] Comment on above: Result Comment: pt d oes not know the dates but states that he is fully vaccinated 04-23-2020 influenza virus vaccine, split virus (incl. purified surface antigen) Jamar Fall Other [facility] 04-23-2020 influenza virus vaccine, unspecified formulation [facility] 04-22-2019 influenza virus vaccine, split virus (incl. purified surface antigen) Jamar Fall Other [facility] 04-22-2019 influenza virus vaccine, unspecified formulation [facility] 04-16-2019 influenza nasal, unspecified formulation Marco A Esqueda MD Work Phone: [facility] 08-20-2018 zoster vaccine recombinant Marco A Esqueda MD Work Phone: [facility] 06-11-2018 zoster vaccine recombinant Marco A Esqueda MD Work Phone: [facility] 04-16-2018 influenza nasal, unspecified formulation Marco A Esqueda MD Work Phone: [facility] 03-27-2018 [id number] adjuvant [facility] Work Phone: [facility] 03-27-2018 influenza nasal, unspecified formulation [facility] [place] Work Phone: [facility] 03-27-2018 influenza virus vaccine, split virus (incl. purified surface antigen) Jamar Fall Other [employer] Other 03-27-2018 influenza virus vaccine, unspecified formulation Anthony SCRUGGS [facility] 03-27-2018 Seasonal trivalent influenza vaccine, adjuvanted, preservative free Marco A Esqueda MD Work Phone: [facility] 06-12-2017 pneumococcal polysaccharide vaccine, 23 valent Marco A Esqueda MD Work Phone: [facility] 06-01-2017 pneumococcal polysaccharide vaccine, 23 valent Jamar Fall Other [facility] 06-01-2017 Prevnar 20 Jamar Fall Other [facility] 05-31-2017 influenza nasal, unspecified formulation [facility] [employer] Work Phone: [facility] 05-31-2017 influenza virus vaccine, unspecified formulation Anthony SCRUGGS [facility] 05-31-2017 influenza, injectabl e, quadrivalent, preservative free Marco A Esqueda MD Work Phone: [facility] 04-03-2017 influenza nasal, unspecified formulation [facility] Work Phone: [facility] 04-03-2017 influenza virus vaccine, split virus (incl. purified surface antigen) Jamar Fall Other [employer] Other 04-03-2017 influenza virus vaccine, unspecified formulation Anthony KAEL [facility] 04-03-2017 influenza, high dose seasonal, preservative-free Marco A Esqueda MD Work Phone: [facility] 03-23-2017 influenza nasal, unspecified formulation Marco A Esqueda MD Work Phone: [facility] 04-01-2016 influenza virus vaccine, split virus (incl. purified surface antigen) Jamar Fall Other [facility] 04-01-2016 influenza virus vaccine, unspecified formulation [facility] 03-31-2016 influenza nasal, unspecified formulation Marco A Esqueda MD Work Phone: [facility] 05-11-2015 influenza nasal, unspecified formulation Marco A Esqueda MD Work Phone: [facility] 05-11-2015 influenza, seasonal, injectable, preservative free [place] Work Phone: [facility] 05-11-2015 pneumococcal conjuga te vaccine, 13 valent Marco A Esqueda MD Work Phone: [facility] 04-29-2015 pneumococcal polysaccharide vaccine, 23 valent Marco A Esqueda MD Work Phone: [facility] 06-09-2014 influenza nasal, unspecified formulation [facility] Work Phone: [facility] 06-09-2014 influenza, seasonal, injectable, preservative free Marco A Esqueda MD Work Phone: [facility] 06-19-2013 diphtheria, tetanus toxoids and acellular pertussis vaccine, unspecified formulation Marco A Esqueda MD Work Phone: [facility] 06-19-2013 tetanus and diphther ia toxoids, not adsorbed, for adult use Marco A Esqueda MD Work Phone: [facility] 05-23-2013 influenza nasal, unspecified formulation Marco A Esqueda MD Work Phone: [facility] 04-24-2013 tetanus and diphther ia toxoids, adsorbed, preservative free, for adult use (5 Lf of tetanus toxoid and 2 Lf of diphtheria toxoid) Jamar Fall Other [facility] 06-27-2012 zoster vaccine, live Marco A lake MD Work Phone: [facility] 06-11-2012 influenza nasal, unspecified formulation Marco A Esqueda MD Work Phone: [facility] 06-02-2011 influenza nasal, unspecified formulation Marco A Esqueda MD Work Phone: [facility] 06-23-2010 pneumococcal polysaccharide vaccine, 23 valent Jamar Fall Other [facility] 06-07-2010 pneumococcal polysaccharide vaccine, 23 valent Marco A Esqueda MD Work Phone: [facility] 06-07-2010 pneumococcal vaccine , unspecified formulation Marco A Esqueda MD Work Phone: [facility] 05-28-2010 influenza nasal, unspecified formulation Marco A Esqueda MD Work Phone: [facility] 01-14-2010 pneumococcal polysaccharide vaccine, 23 valent Jamar Fall Other [facility] 05-25-2009 influenza nasal, unspecified formulation Marco A Esqueda MD Work Phone: [facility] 06-09-2008 influenza nasal, unspecified formulation Marco A Esqueda MD Work Phone: [facility] 07-23-2003 influenza virus vaccine, whole virus Marco A Esqueda MD Work Phone: [facility] 01-14-2003 diphtheria, tetanus toxoids and acellular pertussis vaccine, unspecified formulation Jamar Fall Other [facility] 01-10-2003 TD(adult) unspecifie d formulation Marco A Esqueda MD Work Phone: [facility] 07-03-2002 influenza nasal, unspecified formulation Marco A Esqueda MD Work Phone: [facility] Payers Date Payer Category Payer Unknown MMO MMO MEDICARE SUPPLEMENT [id number] 2019-Present [phone] [address] [place] [address] Indemnity [id number] 2019 Unknown [id number] 2011 Medicare MEDICARE MEDICAR E A AND B [id number] 2011-Present [phone] [address] [address] [place] [address] Medicare [id number] 2011 Medicare [id number]. [id number] 1959 Medicare [id number] 1959 Self-pay 1959 Unknown [id number] 1946 Unknown [id number] 2.16.840.1.301397.3.579.2.593 1946 Unknown [id number] 2.16.840.1.264954.3.579.2.593 1946 Unknown [id number] 2.16.840.1.364013.3.579.2.593 1946 Unknown [id number] 2.16.840.1.653294.3.579.2.593 1946 Unknown [id number] 2..840.1.371743.3.579.2.593 1946 Unknown [id number] 2.840.1.846352.3.579.2.1259 1946 Unknown [id number] 2.16.840.1.203686.3.579.2.1259 1946 Unknown [id number] 2.16.840.1.053164.3.579.2.1259 1946 Unknown [id number] 2.16.840.1.112382.3.579.2.1259 1946 Unknown [id number] 2.16840.1.613025.3.579.2.1259 1946 Unknown [id number] 2.16.840.1.955031.3.579.2.727 1946 Unknown [id number] 2.16.840.1.519822.3.579.2.727 1946 Unknown [id number] 2.16.840.1.231697.3.579.2.727 Unknown [id number] 2.16.840.1.897337.3.579.2.593 Unknown [id number] 2.16.840.1.484419.3.579.2.593 Unknown [id number] [id number] Social History Date Type Detail Facility Start: 11-08-2021 End: 08-11-2022 Tobacco smoking status NHIS Never smoked tobacco [facility] Start: 10-25-2021 End: 11-02-2023 Alcohol intake Current drinker of alcohol (finding) [facility] Start: 08-19-2014 History SDOH Alcohol Comment 1 day/wk [facility] Start: 1945 Sex Assigned At Not on file C [facility] Start: 10-18-2021 End: 05-12-2022 Exposure to SARS-CoV-2 (event) Not sure [facility] Tobacco smoking status Never [facility] Start: 02-02-2023 End: 01-31-2024 Sex Assigned At Male [facility] Start: 1945 Sex Assigned At Male C [facility] Start: 01-12-2018 End: 08-11-2022 Tobacco use and exposure Smokeless tobacco non-user [facility] Start: 02-02-2023 End: 01-31-2024 History of Social function [facility] Start: 02-11-2022 Gender identity Identifies as male gender (finding) [facility] Start: 02-11-2022 Sexual orientation Heterosexual (ce coburn) [facility] How often to you hav [...] 09-06-2023 Tobacco smoking status NHIS Ex-smoker (finding) [facility] NEGATED: Highlighted rowStart: NINF History of tobacco use Passive smoker [facility] Medical Equipment Procedure Code Equipment Code Equipment Origin al Text Equipment Identifier Dates Start: 10-26-2021 End: 05-12-2022 Comment on above: 1 Each once daily. T o test blood sugars 1 Each once daily. T o test blood sugar Blood Sugar Diagnostic (Contour Next Test Strips) strip Start: 10-10-2023 Lancets (Lancets,Thin) [facility] Start: 09-08-2023 Blood Sugar Diagnostic (Contour Next Test Strips) strip Start: 09-08-2023 End: 10-10-2023 Blood Sugar Diagnostic (Contour Next Test Strips) strip Start: 10-10-2023 Lancets (Lancets,Thin) [facility] Start: 09-08-2023 Blood Sugar Diagnostic (Contour Next Test Strips) strip Start: 09-08-2023 End: 10-10-2023 Functional Status Date Assessment Result Facility 04-19-2024 Functional Status N/A [facility] 10-20-2023 Functional Status N/A [facility] 04-17-2023 Functional Status N/A [facility] 05-13-2022 Functional Status N/A [facility] Clinical Notes 07-17-2014 to 05-08-2024 Telephone [...] 2024. Thank you Josh Luo PharmD, BCOP [facility] Work Phone: 05-08-2024 Miscellaneous Notes This prescription confirms Pablo' re-enrollment in the Xtandi free drug program for 2024. Thank you Josh McKitrick, PharmD, BCOP documented in this encounter [facility] 05-08-2024 Note HNO ID: [id number] Author: MARCO A ESQUEDA MD Service: ? Author Type: Physician Type: Progress Notes Filed: 05/10/2024 07:40 Note Text: PATIENT NAME: Pablo eFlix DATE: 05/09/2024 PRIMARY CARE PHYSICIAN: Dr. Jamar Fall OTHER PHYSICIANS: Dr. Anthony Scruggs, Dr. Khan, [facility] Cardiology Portions of this encounter [...] mg 24 hr tablet Take by mouth. Hhfbxujqgsyix-Sjckmevm-Nznqqv (MULTIVITAMIN 50 PLUS) tab Take 1 tablet [...] Radical retropubic prostatectomy and bilateral pelvic lymphadenectomy ([facility]) Poorly differentiated prostatic adenocarcinoma of [...] 0.11 10/25/2022 0.1 (more content not included)... [facility] 05-08-2024 History of Present illness Narrative PATIENT NAME: Pablo Felix DATE: 05/09/2024 PRIMARY CARE PHYSICIAN: Dr. Jamar Fall OTHER PHYSICIANS: Dr. Anthony Scruggs, Dr. Khan, [facility] Cardiology Portions of this encounter [...] mg 24 hr tablet Take by mouth. Xipkwvcotbxfd-Wdktzvrv-Cntovj (MULTIVITAMIN 50 PLUS) tab Take 1 tablet [...] Radical retropubic prostatectomy and bilateral pelvic lymphadenectomy ([facility]) Poorly differentiated prostatic adenocarcinoma of [...] 05/03/2024 0.18 RADIOLOGY/OTHER STUDIES: 11/05/2021 CT chest/abdomen/pelvis ([facility]) Several sclerotic lesions consistent with metastatic disease. No evidence of visceral organ involvement or lymphadenopathy. 11/05/2021 Bone scan ([facility]) Multifocal osseous metastasis including the left femur at the lesser trochanter, right pubis symphysis, multiple ribs bilaterally. 01/22/2018 Nuclear bone scan ([facility]) New focal increased activity left frontal bone, left T8 vertebral body. 01/22/2018 MRI pelvis ([facility]) 4.5 cm area of T2 signal in the prostate bed. 07/24/2014 CT abdomen/pelvis [place] Diffuse prostatic enlargement with indentation of the [...] 414.01, ICD10: I25.10 Status post CABG 08/17/2014 ([facility]). Stable on current medications. Continue [...] Dr. Anthony Scruggs documented in this encounter [facility] 04-19-2024 Hospital Discharge instructions Patient Education 04/19/2024 [...] the likelihood that the cancer will spread. Wesson 6 or lower: This indicates that the cancer cells look similar to normal prostate cells (well differentiated). Wesson 7: This indicates that the cancer cells look somewhat similar to normal prostate cells (moderately differentiated). Wesson 8, 9, or 10: This indicates that [...] stress of having cancer. General instructions Take wobo-lwh-kjokfus and prescription medicines only as told by your health care provider. If you have to go to the hospital, notify your cancer specialist (oncologist). Keep all follow-up visits. This is important. Where to find more information [employer] [place] [employer]: www.cancer.org [place] [employer]: www.cancer.net National Cancer [place]: www.cancer.gov Contact a health care provider if: [...] provider. Document Revised: 09/29/2021 Document Reviewed: 09/29/2021 [employer] Patient Education 2023 New Screens. Follow Up Care 10/20/2023 09:58:12 With:KAEL JAMES, Anthony Lee, URL Address: [address] [place] [address]- When: Unknown [facility] 04-19-2024 Note Patient Education Oncology Prostate [...] likelihood that the cancer will spread. ? Wesson 6 or lower: This indicates that the [...] the prostate gla (more content not included)... [facility] 04-01-2024 Telephone encounter Note Recd phone call from [facility] that they are unable to obtain the Xtandi 80mg tablets a this time and requested a script for the 40 mg dosing. Order pending Josh Luo PharmD, IDALIA [facility] Work Phone: 04-01-2024 Miscellaneous Notes Recd phone call from [facility] that they are unable to obtain the Xtandi 80mg tablets a this time and requested a script for the 40 mg dosing. Order pending Josh Luo PharmD, IDALIA documented in this encounter [facility] 03-29-2024 Note Coronary artery dise ase is stable, no concerning symptoms currently overall is doing well he is planning bilateral carpal tunnel surgery soon with Dr. Charlton. Continue GDMT-continue aspirin, Lipitor, metoprolol, and lisinopril continue risk factor modifications- heart healthy diet, regular exercise as tolerated and continue all medications. [facility] 03-29-2024 Note Hypertension is well -controlled at 127/51 Continue lisinopril/hydrochlorothiazide and metoprolol. Renal function normal [facility] 03-29-2024 Note Lipid abnormalities are stable continue Lipitor 40 mg daily lipid profile is well-controlled and liver function is normal [facility] 03-29-2024 Note Reviewed echocardiog tabby from July 08 moderate aortic stenosis noted and reviewed echo with patient and his No concerning symptoms at this time patient would like symptoms including palpitations, lightheaded dizziness, syncope, chest pain, worsening shortness of breath and he voiced understanding Monitor with echocardiogram [facility] 03-29-2024 Note RCRI=1 points Class II Risk 6.0 % 30-day risk of , DC, or cardiac arrest From a cardiac perspective pt may proceed with carpal tunnel surgery, he is a moderate risk for a low risk surgery. She may hold aspirin 5-7 days prior and resume post op. Please monitor hemodynamics carefully and prevent any major fluid shifts. [facility] 03-29-2024 Note Pt is here for surge ry clearance. Pt denies chest pain, sob, palpatations Review of Systems Musculoskeletal: Positive for arthritis, back pain, joint pain and myalgias. All other systems reviewed and are negative. [facility] 03-29-2024 Note UTP CARDIOLOGY PROGR ESS [...] stenosis and regur (more content not included)... [facility] 02-02-2024 Instructions Lynne Alarcon APRN.PHP DEVELOPER - 02/02/2024 11:37 AM EDT Possible signs [...] swallowing, increasing confusion documented in this encounter [facility] 02-02-2024 History of Present illness Narrative PATIENT NAME: Pablo Felix DATE: February 02, 2024 PRIMARY CARE PHYSICIAN: Dr. Jamar Fall OTHER PHYSICIANS: Dr. Anthony Scruggs, Dr. Khan, [facility] Cardiology This note was copied [...] mg 24 hr tablet Take by mouth. Nuhvirpocmbjy-Fxakhbsr-Pusqhi (MULTIVITAMIN 50 PLUS) tab Take 1 tablet [...] Radical retropubic prostatectomy and bilateral pelvic lymphadenectomy ([facility]) Poorly differentiated prostatic adenocarcinoma of [...] 01/25/2024 0.15 RADIOLOGY/OTHER STUDIES: 11/05/2021 CT chest/abdomen/pelvis ([facility]) Several sclerotic lesions consistent with metastatic disease. No evidence of visceral organ involvement or lymphadenopathy. 11/05/2021 Bone scan ([facility]) Multifocal osseous metastasis including the left femur at the lesser trochanter, right pubis symphysis, multiple ribs bilaterally. 01/22/2018 Nuclear bone scan ([facility]) New focal increased activity left frontal bone, left T8 vertebral body. 01/22/2018 MRI pelvis ([facility]) 4.5 cm area of T2 signal in the prostate bed. 07/24/2014 CT abdomen/pelvis ([facility] Diffuse prostatic enlargement with indentation of the [...] suppressed at <12. Bone scan obtained at [facility] 11/05/2021 revealed multiple bone metastases. 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 Stable on current medications. Continue [...] up. Lynne Alarcon APRN.CNP Hematology/Oncology [facility] [phone] CC: Dr. Anthony Scruggs documented in this encounter [facility] 02-02-2024 Note HNO ID: [id number] Author: LYNNE ALARCON APRN.CNP Service: ? Author Type: Nurse Practitioner Type: Progress Notes Filed: 02/02/2024 11:37 Note Text: PATIENT NAME: Pablo Felix DATE: February 02, 2024 PRIMARY CARE PHYSICIAN: Dr. Jamar Fall OTHER PHYSICIANS: Dr. Anthony Scruggs, Dr. Khan, [facility] Cardiology This note was copied [...] mg 24 hr tablet Take by mouth. Xhosaywqujted-Xcnfnucu-Plghyi (MULTIVITAMIN 50 PLUS) tab Take 1 tablet [...] Radical retropubic prostatectomy and bilateral pelvic lymphadenectomy ([facility]) Poorly differentiated prostatic adenocarcinoma of [...] 0.43 09/07/2020 0.84 (more content not included)... [facility] 11-02-2023 Note HNO ID: [id number] Author: CHRISTO HOWARD APRN.PHP DEVELOPER Service: ? Author Type: Nurse Practitioner Type: Progress Notes Filed: 11/03/2023 11:11 Note Text: PATIENT NAME: Pablo Felix DATE: 11/02/2023 PRIMARY CARE PHYSICIAN: Dr. Jamar Fall OTHER PHYSICIANS: Dr. Anthony Scurggs, Dr. Khan, [facility] Cardiology Portions of this encounter [...] mg 24 hr tablet Take by mouth. Ndrjzoqxhcwwk-Vsbhrsts-Mfpyet (MULTIVITAMIN 50 PLUS) tab Take 1 tablet [...] Radical retropubic prostatectomy and bilateral pelvic lymphadenectomy ([facility]) Poorly differentiated prostatic adenocarcinoma of [...] <0.13 09/26/2019 0.09 (more content not included)... [facility] 11-02-2023 History of Present illness Narrative PATIENT NAME: Pablo Felix DATE: 11/02/2023 PRIMARY CARE PHYSICIAN: Dr. Jamar Fall OTHER PHYSICIANS: Dr. Anthony Scruggs, Dr. Khan, [facility] Cardiology Portions of this encounter [...] mg 24 hr tablet Take by mouth. Rtsjvojsxjorg-Ruzbxcnw-Xxmbvs (MULTIVITAMIN 50 PLUS) tab Take 1 tablet [...] Radical retropubic prostatectomy and bilateral pelvic lymphadenectomy ([facility]) Poorly differentiated prostatic adenocarcinoma of [...] 10/29/2023 0.16 RADIOLOGY/OTHER STUDIES: 11/05/2021 CT chest/abdomen/pelvis ([facility]) Several sclerotic lesions consistent with metastatic disease. No evidence of visceral organ involvement or lymphadenopathy. 11/05/2021 Bone scan ([facility]) Multifocal osseous metastasis including the left femur at the lesser trochanter, right pubis symphysis, multiple ribs bilaterally. 01/22/2018 Nuclear bone scan ([facility]) New focal increased activity left frontal bone, left T8 vertebral body. 01/22/2018 MRI pelvis ([facility]) 4.5 cm area of T2 signal in the prostate bed. 07/24/2014 CT abdomen/pelvis ([facility]) Diffuse prostatic enlargement with indentation of the [...] consistent with stage IIIC (pT2b, N0, M0), Wesson 5+4 equal 9. Postop the patient's PSA [...] suppressed at <12. Bone scan obtained at [facility] 11/05/2021 revealed multiple bone metastases. 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 Stable on current medications. Continue [...] would reconsider referral to GI. Christo Howard APRN.PHP DEVELOPER CC: Dr. Anthony Scruggs I spent a total of 30 minutes on the date of the service which included preparing to see the patient, fkma-lc-yfse patient care, completing clinical documentation, obtaining and/or reviewing separately obtained history, performing a medically appropriate examination, counseling and educating the patient/family/caregiver, ordering medications, tests, or procedures, independently interpreting results (not separately reported), and communicating results to the patient/family/caregiver. documented in this encounter [facility] 10-20-2023 Hospital Discharge instructions Patient [...] under a microscope. This is called the Wesson score and the total score can range from 6 10, indicating how likely it is that the cancer will spread (metastasize) to other parts of the body. The higher the score, the greater the likelihood that the cancer will spread. Wesson 6 or lower: This indicates that the cancer cells look similar to normal prostate cells (well differentiated). Wesson 7: This indicates that the cancer cells [...] stress of having cancer. General instructions Take sptd-kee-mwkjlek and prescription medicines only as told by your health care provider. If you have to go to the hospital, notify your cancer specialist (oncologist). Keep all follow-up visits. This is important. Where to find more information [employer] [employer]: www.cancer.org [place] [employer]: www.cancer.net National Cancer [place]: www.cancer.gov Contact a health care provider if: [...] provider. Document Revised: 09/29/2021 Document Reviewed: 09/29/2021 [employer] Patient Education 2022 New Screens. Follow Up Care 04/17/2023 09:25:02 With:KAEL JAMES, Anthony Lee, URL Address: [address] [place], [place] [id number]- When: Unknown [facility] 08-28-2023 History of Present illness Narrative [...] limited to risks of scarring, darker or rock worker pigmentary changes, recurrence, incomplete removal and infection. [...] results, 6 months documented in this encounter [facility] 08-24-2023 Evaluation note Encounter Date Diagnosis Assessment [...] use, the patient reduces the risk for DC, CVA, HTN, cardiac dysrhythmias and sudden cardiac [...] retention cyst and frontal sinus mass benign [facility] Other 01-19-2024 Evaluation note* Encounter Date Diagnosis Assessment Notes Treatment Notes Treatment Clinical Notes Jul, Pancreatic mass (ICD-10 - K86.89) MRCP: 4cm mass - 2022 - previously completed EUS bx at [facility] - stable in size from 2021 [facility] Other 12-07-2023 [facility] Cardiology Clinic Note Chief Complaint: Patient [...] including aspirin, moderate intensity statin therapy, a beta-joes and an angiotensin-converting enzyme inhibitor given his [...] should problems arise Bridger Mulligan MD, MPH, [facility], [facility], [facility] Interventional Cardiology Pager Email: [email or web address] Evaluation note* Encounter Date Diagnosis Assessment [...] ENT since scheduling appt for sinus mass [facility] Other [id number] Evaluation note* Encounter Date Diagnosis Assessment Notes [...] malignant neoplasm of bone (ICD-10 - C79.51) [facility] Other 10-12-2023 History of Present illness Narrative* Christo Howard APRN.PHP DEVELOPER - 04/27/2023 10:00 AM EDT PATIENT NAME: Pablo Felix DATE: 04/27/2023 PRIMARY CARE PHYSICIAN: Dr. Jamar Fall OTHER PHYSICIANS: Dr. Anthony Scruggs, Dr. Khan, [facility] Cardiology Portions of this encounter [...] mg 24 hr tablet Take by mouth. Ygdiwrrlhrgxb-Koguifae-Payzxh (MULTIVITAMIN 50 PLUS) tab Take 1 tablet [...] Radical retropubic prostatectomy and bilateral pelvic lymphadenectomy ([facility]) Poorly differentiated prostatic adenocarcinoma of [...] 04/24/2023 0.12 RADIOLOGY/OTHER STUDIES: 11/05/2021 CT chest/abdomen/pelvis ([facility]) Several sclerotic lesions consistent with metastatic disease. No evidence of visceral organ involvement or lymphadenopathy. 11/05/2021 Bone scan ([facility]) Multifocal osseous metastasis including the left femur at the lesser trochanter, right pubis symphysis, multiple ribs bilaterally. 01/22/2018 Nuclear bone scan ([facility]) New focal increased activity left frontal bone, left T8 vertebral body. 01/22/2018 MRI pelvis ([facility]) 4.5 cm area of T2 signal in the prostate bed. 07/24/2014 CT abdomen/pelvis ([facility]) Diffuse prostatic enlargement with indentation of the bladder base. Incidental 2.5 x 1 cm exophytic hypodense lesion adjacent to the pancreatic body. ASSESSMENT/PLAN: 1. Metastatic prostate cancer (HCC) - ICD9: 185, ICD10: C61 (primary diagnosis) The patient was diagnosed with early-stage high-grade prostate cancer in June 2014 (TRUS [id number]/02/2014). He underwent a radical prostatectomy on 11/05/2014. [...] suppressed at <12. Bone scan obtained at [facility] 11/05/2021 revealed multiple bone metastases. 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 Stable on current medications. Continue [...] which included preparing to see the patient, yblv-uc-hixr patient care, completing clinical documentation, obtaining and/or reviewing separately obtained history, performing a medically appropriate examination, counseling and educating the pat ient/family/caregiver, ordering medications, tests, or procedures, independently interpreting results (not separately reported), and communicating results to the patient/family/caregiver. documented in this encounterWilson Memorial Hospital10-03-2023 Evaluation note* Encounter Date Diagnosis Assessment Notes Treatment Notes Treatment Clinical Notes Apr, Pancreatic mass (ICD-10 - K86.89) [employer] Other [id number] Hospital Discharge instructions Patient Education 04/17/2023 09:18:19 [...] similar to normal prostate cells (well differentiated). Wesson 7: This indicates that the cancer cells [...] stress of having cancer. General instructions Take gzuz-mnc-btcinwm and prescription medicines only as told by your health care provider. If you have to go to the hospital, notify your cancer specialist (oncologist). Keep all follow-up visits. This is important. Where to find more information [place] [employer]: www.cancer.org [place] [employer]: www.cancer.net National Cancer [place]: www.cancer.gov Contact a health care provider if: [...] provider. Document Revised: 09/29/2021 Document Reviewed: 09/29/2021 [employer] Patient Education 2022 New Screens. Follow Up Care 10/28/2022 08:37:57 With:Blaire SCRUGGS MDrick R, URL Address: [facility] [address], [place] [address]- [phone] When: Unknown Comments:6 mos w/ PSA (and possible Lupron) [facility] 09-27-2023 Evaluation note* Encounter Date Diagnosis Assessment Notes Treatment Notes Treatment Clinical Notes Mar, Pancreatic mass (ICD-10 - K86.89) [employer] Other 09-20-2023 Evaluation note* Encounter Date Diagnosis Assessment Notes Treatment Notes Treatment Clinical Notes Mar, Right upper quadrant abdominal pain (ICD-10 - R10.11) Diet instructions Lab to r/o acute infection, cholecystitis, pancreatitis GBUS vs CT abd based on results BLand, low fat diet Mar, Nausea (ICD-10 - R11.0) Cross , small/frequent feedings. Pepcid, Prilosec, Tums as [...] Microalbumin, Dilated eye exam and Foot exam [facility] [employer] Other 08-30-2023 Evaluation note* Encounter Date Diagnosis [...] use, the patient reduces the risk for DC, CVA, HTN, cardiac dysrhythmias and sudden cardiac [...] exercise for 30 minutes, 3-5 times weekly. [employer] Other 07-23-2023 Evaluation note* Encounter Date Diagnosis Assessment Notes Treatment Notes Treatment Clinical Notes Jan, Left bundle-branch block, unspecified (ICD-10 - I44.7) [employer] Other 07-20-2023 History of Present illness Narrative* Marco A Esqueda MD - 02/02/2023 7:38 AM EDT PATIENT NAME: Pablo Felix DATE: 02/02/2023 PRIMARY CARE PHYSICIAN: Dr. Jamar Fall OTHER PHYSICIANS: Dr. Anthony Scruggs, Dr. Khan, [facility] Cardiology Portions of this encounter [...] mg 24 hr tablet Take by mouth. Jkjkcvqmkmkab-Rwphymfd-Ysydcp (MULTIVITAMIN 50 PLUS) tab Take 1 tablet [...] Radical retropubic prostatectomy and bilateral pelvic lymphadenectomy ([facility]) Poorly differentiated prostatic adenocarcinoma of [...] 10/25/2022 0.13 RADIOLOGY/OTHER STUDIES: 11/05/2021 CT chest/abdomen/pelvis ([facility]) Several sclerotic lesions consistent with metastatic disease. No evidence of visceral organ involvement or lymphadenopathy. 11/05/2021 Bone scan ([facility]) Multifocal osseous metastasis including the left femur at the lesser trochanter, right pubis symphysis, multiple ribs bilaterally. 01/22/2018 Nuclear bone scan ([facility]) New focal increased activity left frontal bone, left T8 vertebral body. 01/22/2018 MRI pelvis ([facility]) 4.5 cm area of T2 signal in the prostate bed. 07/24/2014 CT abdomen/pelvis ([facility] Diffuse prostatic enlargement with indentation of the bladder base. Incidental 2.5 x 1 cm exophytic hypodense lesion adjacent to the pancreatic body. ASSESSMENT/PLAN: 1. Metastatic prostate cancer (HCC) - ICD9: 185, ICD10: C61 (primary diagnosis) The patient was diagnosed with early-stage high-grade prostate cancer in June 2014 (TRUS [id number]/02/2014). He underwent a radical prostatectomy on 11/05/2014. Pathology consistent with stage IIIC (pT2b, N0, M0), Wesson 5+4 equal 9. Postop the patient's PSA [...] suppressed at <12. Bone scan obtained at [facility] 11/05/2021 revealed multiple bone metastases. 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 Stable on current medications. Continue [...] CC: Dr. Anthony Scruggs documented in this encounterWilson Memorial Hospital04-27-2023 History of Present illness Narrative* Christo Howard APRN.PHP DEVELOPER - 11/10/2022 10:00 AM EDT PATIENT NAME: Pablo Felix DATE: 11/10/2022 PRIMARY CARE PHYSICIAN: Dr. Jamar Fall OTHER PHYSICIANS: Dr. Anthony Scruggs, Dr. Khan, [facility] Cardiology Portions of this encounter [...] mg 24 hr tablet Take by mouth. Qpqvvgzmguayi-Wnvcqmky-Yezmis (MULTIVITAMIN 50 PLUS) tab Take 1 tablet [...] Radical retropubic prostatectomy and bilateral pelvic lymphadenectomy ([facility]) Poorly differentiated prostatic adenocarcinoma of [...] PSA 0.13 RADIOLOGY/OTHER STUDIES: 11/05/2021 CT chest/abdomen/pelvis ([facility]) Several sclerotic lesions consistent with metastatic disease. No evidence of visceral organ involvement or lymphadenopathy. 11/05/2021 Bone scan ([facility]) Multifocal osseous metastasis including the left femur at the lesser trochanter, right pubis symphysis, multiple ribs bilaterally. 01/22/2018 Nuclear bone scan ([facility]) New focal increased activity left frontal bone, left T8 vertebral body. 01/22/2018 MRI pelvis ([facility]) 4.5 cm area of T2 signal in the prostate bed. 07/24/2014 CT abdomen/pelvis ([facility]) Diffuse prostatic enlargement with indentation of the bladder base. Incidental 2.5 x 1 cm exophytic hypodense lesion adjacent to the pancreatic body. ASSESSMENT/PLAN: 1. Metastatic prostate cancer (HCC) - ICD9: 185, ICD10: C61 (primary diagnosis) The patient was diagnosed with early-stage high-grade prostate cancer in June 2014 (TRUS [id number]/02/2014). He underwent a radical prostatectomy on 11/05/2014. [...] suppressed at <12. Bone scan obtained at [facility] 11/05/2021 revealed multiple bone metastases. 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 Stable on current medications. Continue [...] which included preparing to see the patient, npyy-ys-aolk patient care, completing clinical documentation, obtaining and/or reviewing separately obtained history, performing a medically appropriate examination, counseling and educating the pat ient/family/caregiver, ordering medications, tests, or procedures, independently interpreting results (not separately reported), and communicating results to the patient/family/caregiver. documented in this encounterWilson Memorial Hospital03-03-2023 Evaluation note* Encounter Date Diagnosis [...] injection w/ Kenalog, may increase BS slightly [employer] Other 02-24-2023 Evaluation note* Encounter Date Diagnosis [...] use, the patient reduces the risk for DC, CVA, HTN, cardiac dysrhythmias and sudden cardiac [...] Lupron along w/ additional oral chemotherapy from [facility] On[facility]. Also receiving Boniva Aug, Other Personalized [...] reviewed and amended by provider signed below. [employer] Other 01-26-2023 History of Present illness Narrative* Marco A Esqueda MD - 08/11/2022 7:42 AM EST PATIENT NAME: Pablo Felix DATE: 08/11/2022 PRIMARY CARE PHYSICIAN: Dr. Jamar Fall OTHER PHYSICIANS: Dr. Anthony Scruggs, Dr. Khan, [facility] Cardiology Portions of this encounter [...] mg 24 hr tablet Take by mouth. Abglnrjzqxfci-Wxikcexx-Jshomq (MULTIVITAMIN 50 PLUS) tab Take 1 tablet [...] Radical retropubic prostatectomy and bilateral pelvic lymphadenectomy ([facility]) Poorly differentiated prostatic adenocarcinoma of [...] 08/11/2022 PSA RADIOLOGY/OTHER STUDIES: 11/05/2021 CT chest/abdomen/pelvis ([facility]) Several sclerotic lesions consistent with metastatic disease. No evidence of visceral organ involvement or lymphadenopathy. 11/05/2021 Bone scan ([facility]) Multifocal osseous metastasis including the left femur at the lesser trochanter, right pubis symphysis, multiple ribs bilaterally. 01/22/2018 Nuclear bone scan ([facility]) New focal increased activity left frontal bone, left T8 vertebral body. 01/22/2018 MRI pelvis ([facility]) 4.5 cm area of T2 signal in the prostate bed. 07/24/2014 CT abdomen/pelvis ([facility]) Diffuse prostatic enlargement with indentation of the bladder base. Incidental 2.5 x 1 cm exophytic hypodense lesion adjacent to the pancreatic body. ASSESSMENT/PLAN: 1. Metastatic prostate cancer (HCC) - ICD9: 185, ICD10: C61 (primary diagnosis) The patient was diagnosed with early-stage high-grade prostate cancer in June 2014 (TRUS [id number]/02/2014). He underwent a radical prostatectomy on 11/05/2014. [...] suppressed at <12. Bone scan obtained at [facility] 11/05/2021 revealed multiple bone metastases. 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 Stable on current medications. Continue [...] CC: Dr. Anthony Scruggs documented in this encounterWilson Memorial Hospital01-05-2023 NotePROCEDURE: XR SHOULDER LT 2V [...] Electronically authenticated by: CYNTHIA TORRES Date: 2022-07-21 15:46[facility]01-05-2023 Evaluation note* Encounter Date Diagnosis Assessment Notes Treatment Notes Treatment Clinical Notes Jul, Cervical spondylosis with radiculopathy (ICD-10 - M47.22) ROM exercises, heat/ice and Tylenol 1000mg tid. Initiated Tramadol w/ caution, no driving, may cause sedation. Jul, Acute pain of left shoulder (ICD-10 - M25.512) ROM exercises, Tylenol and Tramadol as needed. Jul, Annual physical exam (ICD-10 - Z00.00) [employer] Other 10-28-2022 Hospital Discharge instructions Patient Education [...] who: Are older than age 65. Are -[place]. Are obese. Have a family history of [...] cells. Follow these instructions at home: Take htdz-npa-gckdxfb and prescription medicines only as told by [...] 07/03/2006 Document Revised: 06/15/2018 Document Reviewed: 03/13/2017 [employer] Patient Education 2020 New Screens. Follow Up Care 11/08/2021 14:14:20 With:KAEL JAMES, Anthony Lee, URL Address: [address] [place] [address] CHANG KRISHNAN [id number] When: Unknown [facility] 10-27-2022 Nurse Note* Sheela Toney - 05/12/2022 10:43 AM EDT AUA=2 documented in this encounterWilson Memorial Hospital10-27-2022 History of Present illness Narrative* Zach Khan MD - 05/12/2022 10:41 AM EDT Radiation Oncology - Follow Up Note PATIENT NAME: Pablo Felix PATIENT DIAGNOSIS: Prostate adenocarcinoma, initial clinical stage II, initial PSA 1.07, biopsy Lucrecia score 9(4,5), s/p prostatectomy for 11/05/14 pathologic stage IIIC [id number], Wesson 9 (5, 4) now with rising PSA [...] Each once daily. To test blood sugar Wbwfwdonchcwi-Gecqrsll-Lcrliw (MULTIVITAMIN 50 PLUS) tab Take 1 tablet [...] clinical stage II, initial PSA 1.07, biopsy Wesson score 9(4,5), s/p prostatectomy for 11/05/14 pathologic stage IIIC [id number], Wesson 9 (5, 4) withrising PSA, subsequently status [...] Zach Khan MD cc: Jamar Fall MD ([facility]) Portions of the above note extracted and edited from previous visit as well as active information included in the EMR. documented in this encounterWilson Memorial Hospital10-17-2022 Miscellaneous Notes* Telephone Encounter - Sheela Toney - 05/02/2022 10:48 AM EDT Patient coming in on 05/12/22 for follow up with labs. Please add lab orders. Thanks, Sheela Toney MA documented in this encounterWilson Memorial Hospital08-04-2022 History of Present illness Narrative* Marco A Esqueda MD - 02/17/2022 7:51 AM EDT PATIENT NAME: Pablo Felix DATE: 02/17/2022 PRIMARY CARE PHYSICIAN: Jamar Fall, OTHER PHYSICIANS: Dr. Anthony Scruggs, Dr. Khan, [facility] Cardiology Portions of this encounter [...] Each once daily. To test blood sugar Pxhddpcjrjwzk-Hfmmcfjb-Lcjrhd (MULTIVITAMIN 50 PLUS) tab Take 1 tablet [...] Radical retropubic prostatectomy and bilateral pelvic lymphadenectomy ([facility]) Poorly differentiated prostatic adenocarcinoma of [...] PSA 0.14 RADIOLOGY/OTHER STUDIES: 11/05/2021 CT chest/abdomen/pelvis ([facility]) Several sclerotic lesions consistent with metastatic disease. No evidence of visceral organ involvement or lymphadenopathy. 11/05/2021 Bone scan ([facility]) Multifocal osseous metastasis including the left femur at the lesser trochanter, right pubis symphysis, multiple ribs bilaterally. 01/22/2018 Nuclear bone scan ([facility]) New focal increased activity left frontal bone, left T8 vertebral body. 01/22/2018 MRI pelvis ([facility]) 4.5 cm area of T2 signal in the prostate bed. 07/24/2014 CT abdomen/pelvis ([facility]) Diffuse prostatic enlargement with indentation of the bladder base. Incidental 2.5 x 1 cm exophytic hypodense lesion adjacent to the pancreatic body. ASSESSMENT/PLAN: 1. Metastatic prostate cancer (HCC) - ICD9: 185, ICD10: C61 (primary diagnosis) The patient was diagnosed with early-stage high-grade prostate cancer in June 2014 (TRUS [id number]/02/2014). He underwent a radical prostatectomy on 11/05/2014. Pathology consistent with stage IIIC (pT2b, N0, M0), Wesson 5+4 equal 9. Postop the patient's PSA [...] at <12. Staging scans were obtained at [facility] on 11/05/2021. Bone scan revealed [...] 414.01, ICD10: I25.10 Status post CABG 08/17/2014 ([facility]). Stable on current medications. Continue [...] CC: Dr. Anthony Scruggs documented in this encounterWilson Memorial Hospital05-23-2022 Miscellaneous Notes* Telephone Encounter - [...] that he has the phone number to [facility]. No additional questionsnoted. Clementine Aguilar RN documented in this encounterWilson Memorial Hospital04-28-2022 History of Present illness Narrative* Marco A Esqueda MD - 11/11/2021 7:42 AM EDT PATIENT NAME: Pablo Felix DATE: 11/11/2021 PRIMARY CARE PHYSICIAN: Jamar Fall DO OTHER PHYSICIANS: Dr. Anthony Scruggs, Dr. Khan, [facility] Cardiology Portions of this encounter note have been copied from my note from 10/28/2021 and has been updated where appropriate, and reflect my current medical decision making from today. CC: This is a 76 year old male with recently diagnosed metastatic prostate cancer, seen for scheduled follow-up. INTERIM HISTORY: Since the patient's initial visit here he underwent staging scans at [facility] on 11/05/2021. Bone scan revealed [...] Each once daily. To test blood sugar Xwglhjxceueqg-Uaxdmxqn-Nafwle (MULTIVITAMIN 50 PLUS) tab Take 1 tablet [...] Radical retropubic prostatectomy and bilateral pelvic lymphadenectomy ([facility]) Poorly differentiated prostatic adenocarcinoma of [...] PSA 2.64 RADIOLOGY/OTHER STUDIES: 11/05/2021 CT chest/abdomen/pelvis ([facility]) Several sclerotic lesions consistent with metastatic disease. No evidence of visceral organ involvement or lymphadenopathy. 11/05/2021 Bone scan ([facility]) Multifocal osseous metastasis including the left femur at the lesser trochanter, right pubis symphysis, multiple ribs bilaterally. 01/22/2018 Nuclear bone scan ([facility]) New focal increased activity left frontal bone, left T8 vertebral body. 01/22/2018 MRI pelvis ([facility]) 4.5 cm area of T2 signal in the prostate bed. 07/24/2014 CT abdomen/pelvis ([facility]) Diffuse prostatic enlargement with indentation of the bladder base. Incidental 2.5 x 1 cm exophytic hypodense lesion adjacent to the pancreatic body. ASSESSMENT/PLAN: 1. Metastatic prostate cancer (HCC) - ICD9: 185, ICD10: C61 (primary diagnosis) The patient was diagnosed with early-stage high-grade prostate cancer in June 2014 (TRUS [id number]/02/2014). He underwent a radical prostatectomy on 11/05/2014. [...] at <12. Staging scans were obtained at [facility] on 11/05/2021. Bone scan revealed [...] 414.01, ICD10: I25.10 Status post CABG 08/17/2014 ([facility]). Stable on current medications. Continue [...] CC: Dr. Anthony Scruggs documented in this encounterWilson Memorial Hospital04-27-2022 Miscellaneous Notes* Telephone Encounter - Clementine Aguilar RN - 11/10/2021 3:03 PM EDT Pt reports his Enzalutamide was delivered. Will start this evening. Clementine Aguilar RN documented in this encounterWilson Memorial Hospital04-26-2022 Miscellaneous Notes* Telephone Encounter - Clementine Aguilar RN - 11/09/2021 2:31 PM EDT Per pt, his Enzalutamide is scheduled to arrive tomorrow morning. Patient started/will start taking Enzalutamide on 11/10/21. Clementine Aguilar RN documented in this encounterWilson Memorial Hospital04-25-2022 Hospital Discharge instructions Patient Education [...] who: Are older than age 65. Are -[place]. Are obese. Have a family history of [...] cells. Follow these instructions at home: Take pxfm-eqw-yemzsjw and prescription medicines only as told by [...] 07/03/2006 Document Revised: 06/15/2018 Document Reviewed: 03/13/2017 [employer] Patient Education 2020 New Screens. Follow Up Care 08/23/2021 13:26:07 With:KAEL JAMES, Anthony Lee, URL Address: [facility] [address] , [place] [address]- [phone] When:05/10/2022 [facility] 04-21-2022 Miscellaneous Notes* Telephone Encounter - Clementine Aguilar RN - 11/04/2021 2:53 PM EDT Pt would like to get the 4th Covid vaccine when it's due. Dr Esqueda notified and gives the ok to proceed when due. Pt notified and verbalizes understanding. Clementine Aguilar RN documented in this encounterWilson Memorial Hospital04-21-2022 History of Present illness Narrative* [...] Information handout: Enzalutamide, Specialty Pharmacy Information : [facility]acy phone numbers: Yes [...] minutes Clementine Aguilar RN * Aida Luo, [facility] - 11/04/2021 2:49 PM EDT Images from the original note were not included. [facility] Department of Pharmacy Oncology Pharmacy Medication [...] Each once daily. To test blood sugar Qgdqpxvvftuhz-Ggzedvaw-Yvbkvq (MULTIVITAMIN 50 PLUS) tab Take 1 tablet [...] of chemotherapy NA - Followed up with [facility] for delivery of Free Xtandi Readiness [...] patient Rubin Navdeep Luo documented in this encounterWilson Memorial Hospital04-21-2022 Miscellaneous Notes* Telephone Encounter - Aida RodneycindyCLEOPATRA - 11/04/2021 10:54 AM EDT Confirmed with [employer] approval date 11/01/21 and that the specialty pharmacy, [facility], will reach out to Mr Felix 3-5 business days from approval date. If he does not hear from them by 11/10/21 we should call [facility] @ option 2. I informed Mr Felix of this, he has an appt 11/12/21 and said if he has not heard from them by then he will get their phone number from us. Rubin Navdeep Luo documented in this encounterWilson Memorial Hospital04-19-2022 Miscellaneous Notes* Telephone Encounter - Jennifer Amaro - 11/02/2021 12:23 PM EDT Called pt, scheduled for education (11/04) @ 900am. * Telephone Encounter - Clementine Aguilar RN - 11/02/2021 11:57 AM EDT Clerical: Please schedule pt for education. Thank you! Clementine Aguilar RN * Telephone Encounter - Aida Luo RP - 11/02/2021 11:41 AM EDT Approved for free Meilele until 07/16/22. Spoke to patient and let him know to be expecting this call. [facility] will call patient to set up delivery for all fills. I do not see where he has had chemo education yet. Alba does he need to be set up with you? Thanks Rubin Luo RPh * Telephone Encounter - Andreina Castillo RP - 11/01/2021 10:55 AM EDT Patient called today. We completed a conference call with [employer] - they were ableto obtain consent and [...] We will proceed free drug application through [employer]. Pharmacy to reach out to patient 10/29/2021 to notify. Brina Wang RPh * Telephone Encounter - Brina Wang RPh - 10/28/2021 3:08 PM EDT Ambulatory Pharmacy Prior Authorization Note Provider Intervention Required?: No- Pharmacy completed on your behalf. Drug: Xtandi Cover My Meds Carter: [id number] Determination: Approved Prior Authorization/Case #: [id number] Prior Authorization Expiration: 10/28/2022 Time to PA Submission in CMM: 15 min Time to PA Determination in CMM: Same day Additional Information: [employer]Pay $3,111.12 For questions relating to this submission, please contact [facility] at [phone] documented in this encounterWilson Memorial Hospital04-19-2022 Miscellaneous Notes* Telephone Encounter - Zohra Avila PA-C - 11/02/2021 12:00 PM EDT CBC and CMP orders placed Zohra Avila PA-C * Telephone Encounter - Katie Rosen MA - 11/02/2021 11:57 AM EDT Patient has an appt on 11/11/21. Would you like labs, if so place orders. Katie Rosen MA documented in this encounterWilson Memorial Hospital04-18-2022 Miscellaneous Notes* Telephone Encounter - Clementine Aguilar RN - 11/01/2021 9:56 AM EDT Pt notified and verbalizes understanding. Clementine Aguilar RN * Telephone Encounter - Clementine Aguialr RN - 10/29/2021 1:58 PM EDT Call [...] assistance program. Thanks, BRM documented in this encounterWilson Memorial Hospital04-14-2022 Miscellaneous Notes* Telephone Encounter - Clementine Aguilar RN - 10/28/2021 1:12 PM EDT Voicemail message received from Sandra @ [facility]. Reports the pt's 1st dose of Lupron was given on 02/12/2018. Dr Esqueda notified. Clementine Aguilar RN * Telephone Encounter - Clementine Aguilar RN - 10/28/2021 12:[address] Esqueda requests that we contact Dr Scruggs' office for pt's Lupron start date. Call placed to [facility]. No answer. Message left requesting call back. Clementine Aguilar RN documented in this encounterWilson Memorial Hospital04-14-2022 Miscellaneous Notes* Telephone Encounter - Clementine Aguilar RN - 10/28/2021 1:12 PM EDT This encounter was opened in error. @[email or web address]@ documented in this encounterWilson Memorial Hospital04-11-2022 Miscellaneous Notes* Telephone Encounter - Christo Howard APRN.ALEXA - 10/25/2021 4:05 PM EDT Hold off for now. Christo Howard APRN.CNP * Telephone Encounter - Katie Rosen MA - 10/25/2021 11:01 AM EDT If patient needs labs, please sign/place orders for 10/28/21. Thanks. Katie Rosen MA documented in this encounterWilson Memorial Hospital01-01-2015 Evaluation note* Diagnosis Onset Date Resolution Status ASHD (arteriosclerotic heart disease) acute Cervical spondylosis acute Essential hypertension acute Hypercholesterolemia acute Malignant neoplasm of prostate July 17, 2014 acute Nonrheumatic aortic valve stenosis acute GRADY (obstructive sleep apnea) acute Type 2 diabetes mellitus with hyperglycemia acute [facility] Work Phone: Evaluation + Plan note Future Appointments Appointment Date:05/13/2022 08:45:00 AM Scheduled Provider:Anthony SCRUGGS MD Location:[facility] Appointment Type:URO Office Visit Diagnostic Tests Pending * PSA Total 11/08/21 Future Scheduled Tests Laboratory* Basic Metabolic Panel 09/20/21 [facility] evaluation + Plan note Future Appointments Appointment Date:10/28/2022 08:00:00 AM Scheduled Provider:Anthony SCRUGGS MD Location:[facility] Appointment Type:URO Office Visit Diagnostic Tests Pending * PSA Total 09/14/22 Future Scheduled Tests Laboratory* Basic Metabolic Panel 09/20/21 [facility] evaluation + Plan note Future Appointments Appointment Date:10/20/2023 08:45:00 AM Scheduled Provider:Anthony SCRUGGS MD Location:[facility] Appointment Type:URO Office Visit Diagnostic Tests Pending * PSA Total 04/17/23 [facility] evaluation + Plan note Future Appointments Appointment Date:04/19/2024 08:00:00 AM Scheduled Provider:Anthony SCRUGGS MD Location:[facility] Appointment Type:URO Office Visit Diagnostic Tests Pending * PSA Total 02/15/24 [facility] evaluation + Plan note Future Appointments Appointment Date:10/07/2024 09:15:00 AM Scheduled Provider:Anthony SCRUGGS MD Location:[facility] Appointment Type:URO Office Visit Diagnostic Tests Pending * PSA Total 08/17/24 [facility] evaluation note* Diagnosis OPENED IN ERROR- [...] neoplasm of prostate [facility] Diagnosis Malignant neoplasm of prostate (HCC)- Primary Malignant neoplasm of prostate 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 pectoris, unspecified vessel or lesion type Essential hypertension Unspecified essential hypertension Type 2 diabetes mellitus without complication, without long-term current use of insulin (HCC) [facility] [employer] Other Evaluation note* Diagnosis Malignant neoplasm of prostate (HCC)- Primary Malignant neoplasm of prostate 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 pectoris, unspecified vessel or lesion type Essential hypertension Unspecified essential hypertension Type 2 diabetes mellitus without complication, without long-term current use of insulin (HCC) [facility]* Diagnosis Malignant neoplasm of prostate (HCC)- Primary Malignant neoplasm of prostate [facility]* Diagnosis Malignant neoplasm of prostate (HCC)- Primary Malignant neoplasm of prostate [facility]* Diagnosis Malignant neoplasm of prostate (HCC)- Primary Malignant neoplasm of prostate 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 pectoris, unspecified vessel or lesion type Essential hypertension Unspecified essential hypertension Type 2 diabetes mellitus without complication, without long-term current use of insulin (HCC) [facility]* Diagnosis Neoplasm of unspecified behavior of bone, soft tissue, and skin Actinic keratosis [facility] Diagnosis Malignant neoplasm of prostate (HCC)- Primary Malignant neoplasm of prostate [facility]* Diagnosis Malignant neoplasm of prostate (HCC)- Primary Malignant neoplasm of prostate Essential hypertension Unspecified essential hypertension 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 pectoris, unspecified vessel or lesion type Type 2 diabetes mellitus without complication, without long-term current use of insulin (HCC) Lesion of skin of right ear Abdominal discomfort Abdominal pain, unspecified site [facility]* Diagnosis Onset Date Resolution Status Cervical spondylosis acute Mass of skin of left shoulder acute Primary osteoarthritis, right shoulder acute Shoulder pain, right acute Neck pain noneactive ASHD (arteriosclerotic heart disease) acute Essential hypertension acute Hypercholesterolemia acute Malignant neoplasm of prostate July 17, 2014 acute Nonrheumatic aortic valve stenosis acute GRADY (obstructive sleep apnea) acute Type 2 diabetes mellitus with hyperglycemia acute [facility] Work Phone: Evaluation note* Diagnosis Malignant neoplasm of prostate (HCC)- Primary Malignant neoplasm of prostate [facility]* Diagnosis Malignant neoplasm of prostate (HCC)- Primary Malignant neoplasm of prostate [facility]* Diagnosis Malignant neoplasm of prostate (HCC)- Primary Malignant neoplasm of prostate documented in this encounter [facility] note* Diagnosis Malignant neoplasm of prostate (HCC)- Primary Malignant neoplasm of prostate documented in this encounter [facility] general Narrative - Reported* Type Description [...] [place] 08/2015 Hospitalization History see surgical hx [employer] Other History general Narrative - Reported* Type [...] [place] 08/2015 Hospitalization History see surgical hx [employer] Other Hospital course Narrative No data available for this section [facility] [employer] progress note No data available for this section [facility] Administered Section Inactive Administered [...] To Contact Diagnoses Actinic keratosis Long Boo, LAN ENGINEER-PHP DEVELOPER [address] [place] [address] Referral ID Status Reason Start Date Expiration Date V isits Requested Visits Authorized [id number] Pending Review 1 1 Reason *FU 06/06 Right fr ontal sinus mass and cerumen impaction Diagnosis 1 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) Diagnosis 2 Impacted cerumen of right ear (H61.21) Referral Organization [facility] Thony lizama Referring Provider First Name Jamar Referring Provider Last Name Juan David Referring Provider Specialty Internal Me dicine Referred Organization [facility] Referred Provider [facility]elina pineda Referred Address ,[place], [place],[address] Referred Provider Specialty Ear, Nose an d [...] or prosecute any alcohol or drug abuse patient.[facility] Hospital[facility] the event this information is protected by the Federal Confidentiality of Alcohol and Drug Abuse Patient Records regulations: The Federal rules restrict any use of the information to criminally investigate or prosecute any alcohol or drug abuse patient.[facility] HospitalIn the event this information is protected by the Federal Confidentiality of Alcohol and Drug Abuse Patient Records regulations: The Federal rules restrict any use of the information to criminally investigate or prosecute any alcohol or drug abuse patient.[facility] HospitalIn the event this information is protected by the Federal Confidentiality of Alcohol and Drug Abuse Patient Records regulations: The Federal rules restrict any use of the information to criminally investigate or prosecute any alcohol or drug abuse patient.[facility] HospitalIn the event this information is protected by the Federal Confidentiality of Alcohol and Drug Abuse Patient Records regulations: The Federal rules restrict any use of the information to criminally investigate or prosecute any alcohol or drug abuse patient.[facility] HospitalIn the event this information is protected by the Federal Confidentiality of Alcohol and Drug Abuse Patient Records regulations: The Federal rules restrict any use of the information to criminally investigate or prosecute any alcohol or drug abuse patient.[facility] HospitalIn the event this information is protected by the Federal Confidentiality of Alcohol and Drug Abuse Patient Records regulations: The Federal rules restrict any use of the information to criminally investigate or prosecute any alcohol or drug abuse patient.[facility] HospitalIn the event this information is protected by the Federal Confidentiality of Alcohol and Drug Abuse Patient Records regulations: The Federal rules restrict any use of the information to criminally investigate or prosecute any alcohol or drug abuse patient.[facility] HospitalIn the event this information is protected by the Federal Confidentiality of Alcohol and Drug Abuse Patient Records regulations: The Federal rules restrict any use of the information to criminally investigate or prosecute any alcohol or drug abuse patient.[facility] HospitalIn the event this information is protected by the Federal Confidentiality of Alcohol and Drug Abuse Patient Records regulations: The Federal rules restrict any use of the information to criminally investigate or prosecute any alcohol or drug abuse patient.[facility] HospitalIn the event this information is protected by the Federal Confidentiality of Alcohol and Drug Abuse Patient Records regulations: The Federal rules restrict any use of the information to criminally investigate or prosecute any alcohol or drug abuse patient.[facility] HospitalIn the event this information is protected by the Federal Confidentiality of Alcohol and Drug Abuse Patient Records regulations: The Federal rules restrict any use of the information to criminally investigate or prosecute any alcohol or drug abuse patient.[facility] HospitalIn the event this information is protected by the Federal Confidentiality of Alcohol and Drug Abuse Patient Records regulations: The Federal rules restrict any use of the information to criminally investigate or prosecute any alcohol or drug abuse patient.[facility] HospitalIn the event this information is protected by the Federal Confidentiality of Alcohol and Drug Abuse Patient Records regulations: The Federal rules restrict any use of the information to criminally investigate or prosecute any alcohol or drug abuse patient.[facility] HospitalIn the event this information is protected by the Federal Confidentiality of Alcohol and Drug Abuse Patient Records regulations: The Federal rules restrict any use of the information to criminally investigate or prosecute any alcohol or drug abuse patient.[facility] HospitalIn the event this information is protected by the Federal Confidentiality of Alcohol and Drug Abuse Patient Records regulations: The Federal rules restrict any use of the information to criminally investigate or prosecute any alcohol or drug abuse patient.[facility] HospitalIn the event this information is protected by the Federal Confidentiality of Alcohol and Drug Abuse Patient Records regulations: The Federal rules restrict any use of the information to criminally investigate or prosecute any alcohol or drug abuse patient.[facility] the event this information is protected by the Federal Confidentiality of Alcohol and Drug Abuse Patient Records regulations: The Federal rules restrict any use of the information to criminally investigate or prosecute any alcohol or drug abuse patient.[facility] HospitalIn the event this information is protected by the Federal Confidentiality of Alcohol and Drug Abuse Patient Records regulations: The Federal rules restrict any use of the information to criminally investigate or prosecute any alcohol or drug abuse patient.[facility] HospitalIn the event this information is protected by the Federal Confidentiality of Alcohol and Drug Abuse Patient Records regulations: The Federal rules restrict any use of the information to criminally investigate or prosecute any alcohol or drug abuse patient.[facility] HospitalIn the event this information is protected by the Federal Confidentiality of Alcohol and Drug Abuse Patient Records regulations: The Federal rules restrict any use of the information to criminally investigate or prosecute any alcohol or drug abuse patient.[facility] HospitalIn the event this information is protected by the Federal Confidentiality of Alcohol and Drug Abuse Patient Records regulations: The Federal rules restrict any use of the information to criminally investigate or prosecute any alcohol or drug abuse patient.[facility] HospitalIn the event this information is protected by the Federal Confidentiality of Alcohol and Drug Abuse Patient Records regulations: The Federal rules restrict any use of the information to criminally investigate or prosecute any alcohol or drug abuse patient.[facility] HospitalIn the event this information is protected by the Federal Confidentiality of Alcohol and Drug Abuse Patient Records regulations: The Federal rules restrict any use of the information to criminally investigate or prosecute any alcohol or drug abuse patient.[facility] HospitalIn the event this information is protected by the Federal Confidentiality of Alcohol and Drug Abuse Patient Records regulations: The Federal rules restrict any use of the information to criminally investigate or prosecute any alcohol or drug abuse patient.[facility] HospitalIn the event this information is protected by the Federal Confidentiality of Alcohol and Drug Abuse Patient Records regulations: The Federal rules restrict any use of the information to criminally investigate or prosecute any alcohol or drug abuse patient.[facility] HospitalIn the event this information is protected by the Federal Confidentiality of Alcohol and Drug Abuse Patient Records regulations: The Federal rules restrict any use of the information to criminally investigate or prosecute any alcohol or drug abuse patient.[facility] HospitalIn the event this information is protected by the Federal Confidentiality of Alcohol and Drug Abuse Patient Records regulations: The Federal rules restrict any use of the information to criminally investigate or prosecute any alcohol or drug abuse patient.[facility] HospitalIn the event this information is protected by the Federal Confidentiality of Alcohol and Drug Abuse Patient Records regulations: The Federal rules restrict any use of the information to criminally investigate or prosecute any alcohol or drug abuse patient.[facility] HospitalIn the event this information is protected by the Federal Confidentiality of Alcohol and Drug Abuse Patient Records regulations: The Federal rules restrict any use of the information to criminally investigate or prosecute any alcohol or drug abuse patient.[facility] HospitalIn the event this information is protected by the Federal Confidentiality of Alcohol and Drug Abuse Patient Records regulations: The Federal rules restrict any use of the information to criminally investigate or prosecute any alcohol or drug abuse patient.[facility] HospitalIn the event this information is protected by the Federal Confidentiality of Alcohol and Drug Abuse Patient Records regulations: The Federal rules restrict any use of the information to criminally investigate or prosecute any alcohol or drug abuse patient.[facility] HospitalIn the event this information is protected by the Federal Confidentiality of Alcohol and Drug Abuse Patient Records regulations: The Federal rules restrict any use of the information to criminally investigate or prosecute any alcohol or drug abuse patient.[facility] HospitalIn the event this information is protected by the Federal Confidentiality of Alcohol and Drug Abuse Patient Records regulations: The Federal rules restrict any use of the information to criminally investigate or prosecute any alcohol or drug abuse patient.[facility] HospitalIn the event this information is protected by the Federal Confidentiality of Alcohol and Drug Abuse Patient Records regulations: The Federal rules restrict any use of the information to criminally investigate or prosecute any alcohol or drug abuse patient.[facility] HospitalIn the event this information is protected by the Federal Confidentiality of Alcohol and Drug Abuse Patient Records regulations: The Federal rules restrict any use of the information to criminally investigate or prosecute any alcohol or drug abuse patient.[facility] Care Teams (unrecognized sec tion and content) Funding Coordinator Relationship Specialty Start Date End Date Jamar Fall, DO PCP - General Internal Medicine 08/04/14 Funding Coordinator Relationship Specialty Start Date End Date Jamar Fall, DO PCP - General Internal Medicine 08/04/14 Funding Coordinator Relationship Specialty Start Date End Date Jamar Fall, DO PCP - General Internal Medicine 08/04/14 Funding Coordinator Relationship Specialty Start Date End Date Jamar Fall, DO PCP - General Internal Medicine 08/04/14 Marco A Esqueda MD [address] [place] [address] Physician Hematology/Oncology 11/02/21 Christo Howard, LAN ENGINEER.PHP DEVELOPER [address] [place] [address] Nurse Practitioner Hematology/Oncology 11/02/21 Clementine Aguilar, ANITHA [address] [place] [address] Specialty Chief Lifestyle Officer Hematology/Oncology 11/02/21 Funding Coordinator Relationship Specialty Start Date End Date Jamar Fall, DO PCP - General Internal Medicine 08/04/14 Marco A Esqueda MD [address] [facility] [place] [address] Physician Hematology/Oncology 11/02/21 Christo Howard, LAN ENGINEER.PHP DEVELOPER [address] [place] [address] Nurse Practitioner Hematology/Oncology 11/02/21 Clementine Aguilar, RN [address] [place] [address] Specialty Chief Lifestyle Officer Hematology/Oncology 11/02/21 Funding Coordinator Relationship Specialty Start Date End Date Jamar Fall, DO PCP - General Internal Medicine 08/04/14 Marco A Esqueda MD [address] [place] [address] Physician Hematology/Oncology 11/02/21 Christo Howard, LAN ENGINEER.PHP DEVELOPER [address] [place] [address] Nurse Practitioner Hematology/Oncology 11/02/21 Clementine Aguilar, RN [address] [place] [address] Specialty Chief Lifestyle Officer Hematology/Oncology 11/02/21 Funding Coordinator Relationship Specialty Start Date End Date Jamar Fall, DO PCP - General Internal Medicine 08/04/14 Marco A Esqueda MD [address] [place] [address] Physician Hematology/Oncology 11/02/21 Christo Howard, LAN ENGINEER.PHP DEVELOPER [address] [place] [address] Nurse Practitioner Hematology/Oncology 11/02/21 Clementine Aguilar, RN [address] [place] [address] Specialty Chief Lifestyle Officer Hematology/Oncology 11/02/21 Funding Coordinator Relationship Specialty Start Date End Date Jamar Fall, DO PCP - General Internal Medicine 08/04/14 Marco A Esqueda MD [address] [place] [address] Physician Hematology/Oncology 11/02/21 Christo Howard, LAN ENGINEER.PHP DEVELOPER [address] [place] [address] Nurse Practitioner Hematology/Oncology 11/02/21 Clementine Aguilar, ANITHA [address] [place] [address] Specialty Chief Lifestyle Officer Hematology/Oncology 11/02/21 Funding Coordinator Relationship Specialty Start Date End Date Jamar Fall, DO PCP - General Internal Medicine 08/04/14 Marco A Esqueda MD [address] [place] [address] Physician Hematology/Oncology 11/02/21 Christo Howard, LAN ENGINEER.PHP DEVELOPER [address] [place] [address] Nurse Practitioner Hematology/Oncology 11/02/21 Clementine Aguilar, ANITHA [address] [place] [address] Specialty Chief Lifestyle Officer Hematology/Oncology 11/02/21 Funding Coordinator Relationship Specialty Start Date End Date Jamar Fall, DO PCP - General Internal Medicine 08/04/14 Marco A Esqueda MD [address] [place] [address] Physician Hematology/Oncology 11/02/21 Christo Howard, LAN ENGINEER.PHP DEVELOPER [address] [place] [address] Nurse Practitioner Hematology/Oncology 11/02/21 Clementine Aguilar, RN [address] [place], [place] [id number] Specialty Chief Lifestyle Officer Hematology/Oncology 11/02/21 Funding Coordinator Relationship Specialty Start Date End Date Jamar Fall, PCP - General Internal Medicine 08/04/14 Marco A Esqueda MD [address] [place] [address] Physician Hematology/Oncology 11/02/21 Christo Howard, LAN ENGINEER.PHP DEVELOPER [address] [place] [address] Nurse Practitioner Hematology/Oncology 11/02/21 Clementine Aguilar, ANITHA [address] [place] [address] Specialty Chief Lifestyle Officer Hematology/Oncology 11/02/21 Funding Coordinator Relationship Specialty Start Date End Date Jamar Fall DO PCP - General Internal Medicine 08/04/14 Marco A Esqueda MD [address] [place] [address] Physician Hematology/Oncology 11/02/21 Christo Howard, LAN ENGINEER.PHP DEVELOPER [address] [place] [address] Nurse Practitioner Hematology/Oncology 11/02/21 Clementine Aguilar, ANITHA [address] [place] [address] Specialty Chief Lifestyle Officer Hematology/Oncology 11/02/21 Funding Coordinator Relationship Specialty Start Date End Date Jamar Fall DO PCP - General Internal Medicine 08/04/14 Marco A Esqueda MD [address] [place] [address] Physician Hematology/Oncology 11/02/21 Christo Howard, LAN ENGINEER.PHP DEVELOPER [address] [place] [address] Nurse Practitioner Hematology/Oncology 11/02/21 Clementine Aguilar, RN [address] [place] [address] Specialty Chief Lifestyle Officer Hematology/Oncology 11/02/21 Funding Coordinator Relationship Specialty Start Date End Date Jamar Fall, DO PCP - General Internal Medicine 08/04/14 Marco A Esqueda MD [address] [place] [address] Physician Hematology/Oncology 11/02/21 Christo Howard, LAN ENGINEER.PHP DEVELOPER [address] [place] [address] Nurse Practitioner Hematology/Oncology 11/02/21 Clementine Aguilar, RN [address] [place] [address] Specialty Chief Lifestyle Officer Hematology/Oncology 11/02/21 Funding Coordinator Relationship Specialty Start Date End Date Jamar Fall, DO PCP - General Internal Medicine 08/04/14 Marco A Esqueda MD [address] [place] [address] Physician Hematology/Oncology 11/02/21 Christo Howard, LAN ENGINEER.PHP DEVELOPER [address] [place] [address] Nurse Practitioner Hematology/Oncology 11/02/21 Clementine Aguilar, ANITHA [address] [place] [address] Specialty Chief Lifestyle Officer Hematology/Oncology 11/02/21 Funding Coordinator Relationship Specialty Start Date End Date Jamar Fall DO PCP - General Internal Medicine 08/04/14 Marco A Esqueda MD [address] [place] [address] Physician Hematology/Oncology 11/02/21 Christo Howard, LAN ENGINEER.PHP DEVELOPER [address] [place] [address] Nurse Practitioner Hematology/Oncology 11/02/21 Clementine Aguilar RN [address] [place] [address] Specialty Chief Lifestyle Officer Hematology/Oncology 11/02/21 Funding Coordinator Relationship Specialty Start Date End Date Jamar Fall DO PCP - General Internal Medicine 08/04/14 Marco A Esqueda MD [address] [place] [address] [place] [address] Physician Hematology/Oncology 11/02/21 Christo Howard, LAN ENGINEER.PHP DEVELOPER [address] [place] [address] [place] [address] Nurse Practitioner Hematology/Oncology 11/02/21 Clementine Aguilar, RN [address] [place] [address] Specialty Chief Lifestyle Officer Hematology/Oncology 11/02/21 Funding Coordinator Relationship Specialty Start Date End Date Jamar Fall DO PCP - General Internal Medicine 08/04/14 Marco A Esqueda MD [address] [place], [place] [id number] Physician Hematology/Oncology 11/02/21 Christo Howard, LAN ENGINEER.PHP DEVELOPER [address] [place] [address] Nurse Practitioner Hematology/Oncology 11/02/21 Clementine Aguilar, ANITHA [address] [facility] [address] Specialty Chief Lifestyle Officer Hematology/Oncology 11/02/21 Funding Coordinator Relationship Specialty Start Date End Date Jamar Fall DO PCP - General Internal Medicine 08/04/14 Marco A Esqueda MD [address] [place] [address] Physician Hematology/Oncology 11/02/21 Christo Howard, LAN ENGINEER.PHP DEVELOPER [address] [facility] [place] [address] Nurse Practitioner Hematology/Oncology 11/02/21 Clementine Aguilar, RN [address] [facility] [address] Specialty Chief Lifestyle Officer Hematology/Oncology 11/02/21 Funding Coordinator Relationship Specialty Start Date End Date Jamar Fall DO PCP - General Internal Medicine 08/04/14 Marco A Esqueda MD [address] [place], [place] [id number] Physician Hematology/Oncology 11/02/21 Christo Howard, LAN ENGINEER.PHP DEVELOPER [address] [place] [address] Nurse Practitioner Hematology/Oncology 11/02/21 Clementine Aguilar, ANITHA [address] [place] [address] Specialty Chief Lifestyle Officer Hematology/Oncology 11/02/21 Funding Coordinator Relationship Specialty Start Date End Date Jamar Fall MD [address] [place] [address] PCP - General Internal Medicine 05/31/23 Funding Coordinator Relationship Specialty Start Date End Date Jamar Fall MD [address] [place] [address] PCP - General Internal Medicine 05/31/23 Funding Coordinator Relationship Specialty Start Date End Date Jamar Fall DO PCP - General Internal Medicine 08/04/14 Marco A Esqueda MD [address] [place] [address] [place] [address] Physician Hematology/Oncology 11/02/21 Christo Howard, LAN ENGINEER.PHP DEVELOPER [address] [place] [address] Nurse Practitioner Hematology/Oncology 11/02/21 Clementine Aguilar, RN [address] [place] [address] Specialty Chief Lifestyle Officer Hematology/Oncology 11/02/21 Funding Coordinator Relationship Specialty Start Date End Date Jamar Fall DO PCP - General Internal Medicine 08/04/14 Marco A Esqueda MD [address] [place] [address] [place] [address] Physician Hematology/Oncology 11/02/21 Christo Howard APRN.PHP DEVELOPER [address] [place] [address] [place] [address] Nurse Practitioner Hematology/Oncology 11/02/21 Clementine Aguilar, ANITHA [address] [place] [address] Specialty Chief Lifestyle Officer Hematology/Oncology 11/02/21 Team Status: Active Member Role [...] November 23, 2023 End: November 23, 2023 Funding Coordinator Relationship Specialty Start Date End Date Jamar Fall DO PCP - General Internal Medicine 08/04/14 Marco A Esqueda MD [address] [place] [address] [place] [address] Physician Hematology/Oncology 11/02/21 Christo Howard, LAN ENGINEER.PHP DEVELOPER [address] [facility] [place] [address] Nurse Practitioner Hematology/Oncology 11/02/21 Clementine Aguilar, ANITHA [address] [place] [address] Specialty Chief Lifestyle Officer Hematology/Oncology 11/02/21 Funding Coordinator Relationship Specialty Start Date End Date Jamar Fall DO PCP - General Internal Medicine 08/04/14 Marco A Esqueda MD [address] [place] [address] [place] [address] Physician Hematology/Oncology 11/02/21 Christo Howard, LAN ENGINEER.PHP DEVELOPER [address] [facility] [place] [address] Nurse Practitioner Hematology/Oncology 11/02/21 Clementine Aguilar, ANITHA [address] [place] [address] Specialty Chief Lifestyle Officer Hematology/Oncology 11/02/21 Team Status: Active Member Role Status Dates Jamar Fall DO Primary Care Provider Active Start: January 25, 2024 SAMAN Collins Attending Provider Active Start: January 25, 2024 Team Status: Inactive Member Role Status Dates Jamar Fall DO Primary Care Provide r, Attending Provider Active Start: March 26, 2024 End: March 26, 2024 Funding Coordinator Relationship Specialty Start Date End Date Jamar Fall DO PCP - General Internal Medicine 08/04/14 Marco A Esqueda MD [address] [place] [address] [place] [address] Physician Hematology/Oncology 11/02/21 Christo Howard, LAN ENGINEER.PHP DEVELOPER [address] [place] [address] Nurse Practitioner Hematology/Oncology 11/02/21 Clementine Aguilar, RN [address] [place] [address] Specialty Chief Lifestyle Officer Hematology/Oncology 11/02/21 Funding Coordinator Relationship Specialty Start Date End Date Jamar Fall DO PCP - General Internal Medicine 08/04/14 Marco A Esqueda MD [address] [facility] [place] [address] Physician Hematology/Oncology 11/02/21 Christo Howard, LAN ENGINEER.PHP DEVELOPER [address] [facility] [place] [address] Nurse Practitioner Hematology/Oncology 11/02/21 Clementine Aguilar, ANITHA [address] [place] [address] Specialty Chief Lifestyle Officer Hematology/Oncology 11/02/21 Funding Coordinator Relationship Specialty Start Date End Date Jamar Fall DO PCP - General Internal Medicine 08/04/14 Marco A Esqueda MD [address] [place] [address] Physician Hematology/Oncology 11/02/21 Christo Howard, LAN ENGINEER.PHP DEVELOPER [address] [facility] [place] [address] Nurse Practitioner Hematology/Oncology 11/02/21 Clementine Aguilar, ANITHA [address] [place] [address] [place] [address] Specialty Chief Lifestyle Officer Hematology/Oncology 11/02/21 Reason for Visit (unrecogniz ed [...] up Specialty Diagnoses / Procedures Referred By Critical access hospital Referred To Contact Diagnoses Malignant neoplasm of prostate (HCC) Procedures DENOSUMAB INJECTION Marco A Esqueda MD [address] [place] [address] [place] [address] [facility] Treat [place] [place] [address] Referral ID Status Reason Start Date Expiration Date V isits Requested Visits Authorized [id number] Authorized 11/11/2021 07/16/2022 99 99 Reason Comments Care Coordination Refill Question Reason Comments Prostate Cancer 1 month follow up Reason Comments Prostate Cancer Follow up Reason Comments Prostate Cancer 3 month follow up Reason Comments Prostate Cancer Reason Comments Prostate Cancer Follow up Reason Comments Suspicious Skin Lesion Specialty Diagnoses / Procedures [facility] Referred To Contact Dermatology Diagnoses lesion of skin of R ear Marco A Esqueda MD [address] [place] [address] [place] [address] Lety Holguin MD [address] [place] [address] Referral ID Status Reason Start Date Expiration Date Visits Re quested Visits Authorized [id number] Closed 08/04/2023 01/31/2024 1 1 Reason Comments [...] DATE CREATED AUTHOR AUTHOR'S ORGANIZ ATION 03/02/2024 [facility] DATE CREATED AUTHOR AUTHOR'S ORGANIZ ATION 04/02/2024 [facility] DATE CREATED AUTHOR AUTHOR'S ORGANIZ ATION 04/21/2024 [facility] DATE CREATED AUTHOR AUTHOR'S ORGANIZ ATION 08/04/[address] [facility] Inactive Administered Medications - up to [...] BE BASED ON THE PRIMARY CLINICAL RECORDS. [email or web address] provides no warranty or guarantee of the accuracy or completeness of information in this document.
--- NOTE | 2024-08-06 10:12 | XR_ITS ---
[facility] [place] [id number] Patient Name: PABLO ONEIL MRN: [id number] date: 1945 Sex: M Assigned Patient Location: [facility] Current Patient Location: Accession/Order Number: [id number] Exam Date: 08/06/2024 10:05 Report Date: 08/07/2024 08:50 At the request of: UZMA ORTEGA Procedure: XR cervical spine 5V EXAMINATION: XR cervical spine 5V HISTORY: Cervical Stenosis COMPARISON: XR C-spine 07/21/2022 FINDINGS: BONES: Mild grade 1 anterolisthesis of C3 on 4. Multilevel moderate degenerative facet arthropathy with bone encroachment on the neural foramen. DISC SPACES: Mild narrowing C5-6, C6-7. PARASPINOUS: Negative. No paraspinous abnormality is seen. OTHER: Negative. XR/XR cervical spine 5V IMPRESSION: 1. 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 Electronically authenticated by: CYNTHIA TORRES Date: 08/07/2024 08:50
== END 2024-08-06 09:54 | disposition home or self-care (01) ==
LOC: RAD 09:55
PROVIDERS: PCP Family Medicine Adult Medicine; Visit Provider Anesthesiology Pain Medicine
DX: M48.02 Spinal stenosis, cervical region (principal)
CPT/HCPCS: 72050

== ENCOUNTER 2024-09-03 07:54 | Day surgery (SDC) | payer MEDICARE, OTHER, SELFPAY ==
[2024-09-03 08:09] VITALS: BP 141/66; PULSE 51; TEMP 36.1; O2SAT 100
[2024-09-03 08:16] LABS: Glucometer 99 mg/dL (74-106)
--- OUTSIDE RECORDS SUMMARY | 2024-09-03 08:17 | XMS_ITS | CCD ---
Author Organization [facility] Care Team Providers Care Jewelry Sales Representative Name Role Phone Jamar Fall DO Primary Care Provider Dheeraj JAMES, Marco A R Unavailable [facility] SPECIALIST.ALEXA, Christo Unavailable [phone] Lauren WELSH, Clementine Unavailable JAMAR FALL Primary Care Physician Jamar Fall DO Primary Care Provider Dheeraj JAMES, Marco A R Unavailable [facility].COOK COLD MEAT, Christo Unavailable [phone] Lauren WELSH, Clementine Unavailable Jamar Fall DO Primary Care Provider Dheeraj JAMES, Marco A R Unavailable [phone] [facility] SPECIALIST.ALEXA, Christo Unavailable Lauren WELSH, Clementine Unavailable Jamar [...] Consulting Unavaila ble Lauren WELSH, Clementine Unavailable [phone] Jamar Fall MD Primary Care Provider Jamar Fall DO Primary Care Provider LONG BOO Attending Unavailable MARCO A ESQUEDA Referring Unavailable EMELINA LOUIS Attending Unavailable BALL, JAMAR E Referring Unavailable PABLO CHRISTINA Attending Unavailable LONG BOO Attending Unavailable ALEXIA FRANCO Attending Unavailable ELTARODNEY, BRIDGER Attending Unavailable TAMEKALORA Attending Unavailable SCRUGGSAnthony R Attending Unavailable SCRUGGSAnthony Attending Unavailable SCRUGGSAnthony Attending Unavailable BALL, JAMAR E Primary Care Unavailable BALL, JAMAR E Primary Care Unavailable MARCO A ESQUEDA R Referring Unavailable CHRISTO HOWARD Attending Unavailable BALL, JAMAR E Primary Care Unavailable DHEERAJ, MARCO A R Referring Unavailable BALL, JAMAR E Primary Care Unavailable BALL, JAMAR E Primary Care Unavailable MARCO A ESQUEDA R Referring Unavailable DHEERAJ, MARCO A R Referring Unavailable CHRISTO HOWARD Attending Unavailable BALL, JAMAR E Primary Care Unavailable BALL, JAMAR E Primary Care Unavailable MARCO A ESQUEDA R Referring Unavailable BALL, JAMAR E Primary Care Unavailable DHEERAJ, MARCO A R Referring Unavailable MARCO A ESQUEDA R Attending Unavailable BALL, JAMAR E Primary Care Unavailable BALL, JAMAR E Primary Care Unavailable MARCO A ESQUEDA R Referring Unavailable BALL, JAMAR E Primary Care Unavailable BALL, JAMAR E Primary Care Unavailable MARCO A ESQUEDA R Referring Unavailable LYNNE ALARCON Attending Unavailable Allergies Allergy Classification Reported Allergen(s) Allergy Type Date of Onset Reaction(s) Facility (18 sources) Penicillins; Translations: [PENICILLINS] Drug Allergy 1 Unknown [facility] (20 sources) Penicillin G; Translations: [penicillin G benzathine] Drug Allergy 1 Unknown (qualifier value) [facility] (20 sources) Penicillins Drug Allergy 5 Unknown [facility] (20 sources) Simvastatin; Translations: [SIMVASTATIN] Drug Allergy 2 Unknown [facility] (1 source) Penicillins Drug allergy (disorder) 5 [facility] (1 source) Penicillin Drug Allergy Unknown [facility] Other (1 source) Allergies Reconciled Propensity to adverse reactions Unknown [facility] Other (1 source) patient allergy list reviewed by nurse or physicia Propensity to adverse reactions 9 Comment:Done [facility] Other (3 sources) Simvastatin Propensity to adverse [...] mg / cholecalciferol 250 unt oral tablet (20 sources) Vitamin D Start: 04-28-20 take 2 [...] tablet 11 05/08/2024 Active Start: 05-08-2023 End: 08-08-2024 take 2 tablets by mouth once daily enzalutamide (XTANDI) 80 mg tablet TAKE 2 TABLETS (160 MG) BY MOUTH ONCE DAILY. 60 tablet 11 04/01/2024 08/08/2024 Discontinued (Discontinued by Patient) Start: 05-13-2022 take 1 mg by mouth [...] Take 1 tablet by anupama once daily. ipratropium bromide 0.042 mg/actuat metered dose nasal spray (14 sources) Anticholinergic Start: 10-20-2023 ipratropium Nasal 0.06% [place] Refill(s) 0 Start Date: 10/20/23 Status: Ordered [...] Start: 08-17-2021 take 1 tablet by anupama once daily metFORMIN (GLUCOPHAGE) 1,000 mg tablet Take 1,000 mg by mouth once daily. 08/17/2021 Active Start: 08-17-2021 take 2 tablets by mo [facility] once daily at mealtime metFORMIN (GLUCOPHAGE) 500 mg tablet TAKE 2 TABLETS BY MOUTH ONCE A DAY WITH FOOD 0 08/17/2021 Active Start: 05-14-2021 take 1 mg by mouth twice daily metformin 1000 mg oral tablet mg tab(s), Oral, BID, Refills(s) 0 Start Date: 05/14/21 Status: Ordered take 1 tablet by anupama at mealtime, then take 1 tablet by mouth every twenty-four hours metFORMIN, OSM, (Fortamet) 500 MG 24 hr tablet Take 500 mg by mouth in the evening. Take with meals. Do not crush, chew, or split. 0 Active metFORMIN HCl 50 0 MG 1 tablet with a meal Active Comment on above: TAKE 2 TABLETS BY [facility] ONCE A DAY WITH FOOD Take [...] by mouth twice daily. Take by mouth. Fdtbnqpzygaug-Yondeaqu-Dtgoe n (MULTIVITAMIN 50 PLUS) tab (20 sources) [...] Comment on above: Take 1 tablet by [facility] twice daily. clopidogrel 75 mg oral tablet (2 sources) P2Y12 Platelet Inhibitor clopidogrel (PLAVIX) 75 mg tablet clopidogrel 75 mg tablet 0 Active Comment on above: clopidogrel 75 mg ta blet 1.7 ml denosumab 70 mg/ml injection (3 sources) RANK Ligand Inhibitor Start: 08-08-19 End: 08-08-19 inject 1 dose by subcutaneous injection once 120 mg, SUBCUTANEOUS, ONCE, 1 dose, On [place] 08/08/24 at 1000, REFRIGERATE Start: 05-09-2024 End: 05-09-2024 inject 1 dose by subcutaneous injection once [...] Amide Local Anesthetic Start: 03-15-20 23 Lidocaine 30 Feb, 2023 20 mg oxyCODONE hydrochloride 5 mg oral [...] 10/2014 and EBRT 2017 Cancer of prostate (7 sources) History of malignant neoplasm of prostate; Translations: [Personal history of malignant neoplasm of prostate] Onset: 04-14-2023 12-23-2019 Episodic Conduction disorders (18 sources) Left bundle branch block; Translations: [Other left bundle branch block] Onset: 08-25-2014 Chronic Coronary atherosclerosis and other heart disease (20 sources) Coronary arteriosclerosis; Translations: [Atherosclerotic heart disease of [place] coronary artery without angina pectoris] Onset: 10-10-2014 01-01-2019 Chronic Diabetes mellitus with complications (20 sources) Type 2 diabetes mellitus; Translations: [Type 2 diabetes mellitus with hyperglycemia] Onset: 07-17-1959 Chronic Diabetes mellitus without complication (12 sources) Type 2 diabetes mellitus without complication; [...] Test Name Value Interpretation Reference Range Facility [facility] 08-08-2024 [facility] Visit (SP) Office ( [facility]) PABLO FELIX ([id number]) 1945 M Date Time Provider Department 08/08/24 9:30 AM CHRISTO HOWARD During your visit today, we recorded the following information about you: Temperature Pulse Respiration Blood pressure 97.9 degrees 57/minute 16/minute 149/56 Weight Height 95 kg 1.676 m Christo Howard APRN.CNP 08/08/2024 12:09 PM Signed PATIENT NAME: Palbo Felix DATE: 08/08/2024 PRIMARY CARE PHYSICIAN: Dr. Jamar Fall OTHER PHYSICIANS: Dr. Anthony Scruggs, Dr. Khan, [facility] Cardiology Portions of this encounter note have been copied from the note from 05/09/2024 and has been updated where appropriate, and reflect my current medical decision making from today. CC: This is a 79 year old male with metastatic prostate cancer, seen for scheduled follow-up and Xgeva. INTERIM HISTORY: Pablo Felix returns for scheduled follow-up. He remains on Xtandi 160 mg (4 tablets) daily and is tolerating it well. He denies any side effects. He receives Lupron from Dr. Scruggs and is next due in October. He offers no new complaints today. He has chronic neck pain which is managed by pain management. He denies any new areas of pain. No bone pain. He is urinating well. No pain, burning, difficulty or hematuria. He has had some intermittent diarrhea which he believes he is now lactose intolerance. MEDICATIONS: Current Outpatient Medications Medication Sig enzalutamide (XTANDI) 40 mg tablet Take 4 tablets (160 mg) by mouth once daily. enzalutamide (XTANDI) 80 mg tablet TAKE 2 TABLETS (160 MG) BY MOUTH ONCE DAILY. Calcium Citrate-Vitamin D3 200 mg-6.25 mcg (250 unit) tab Take 2 tablets by mouth once daily. metoprolol succinate ER (TOPROL XL) 25 mg 24 hr tablet Take by mouth. Mrocytdacscjq-Ovsrnpfw-Czqr in (MULTIVITAMIN 50 PLUS) tab Take 1 [...] paralysis, seizures or tremors. PHYSICAL EXAM: BP 149/56 Pulse (!) 57 Temp 36.6 ?C (97.9 ?F) (Temporal) Resp 16 Ht 167.6 cm (5' 5.98 ) Wt 95 kg (209 lb 7 oz) SpO2 99% BMI 33.82 kg/m? ECOG PS: 0-1 General: Alert, oriented x 3. NAD. Non-toxic appearing. Well-nourished. HEENT: No scleral icterus. Heart: HRR s1s2 Lungs: Lungs CTA, no wheezing, rales, rhonchi or crackles ,non-labored breathing. Abdominal: Abd rounded but soft, NT, ND. Extremities: No edema or cyanosis. Skin: No rashes, bruising, or petechiae. Neuro: Non-focal exam without deficits. 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 Left base margin positive for neoplasm. Seminal vesicles with no diagnostic abnormality. 2 resected lymph nodes negative for neoplasm. LABS: Hemoglobin (g/dL) Date Value 08/01/2024 12.2 05/08/2018 12.8 Hematoc (more content not included)... Normal [facility] CBC W Auto Differential pane l (Bld)on 08-01-2024 Basophils (Bld) [#/Vol] 0.03 10*3/uL Normal <0.11 [facility] Comment on above: Order Comment: Speci men Type: BLOOD SPECIMEN Ordering Facility: [facility] Address: [address] [place] [address] Performed By: #### 5 7021-8 #### [facility] CLIA [id number] [address] [place] [address] 58[address] Basophils/100 WBC (Bld) 0.5 % Normal [facility] Comment on above: Order Comment: Speci men Type: BLOOD SPECIMEN Ordering Facility: [facility] Address: [address] [place] [address] Performed By: #### 5 7021-8 #### [facility] CLIA [id number] [address] [place] [address] 14339 Differential cell count method Nom (Bld) Auto Normal [facility] Comment on above: Order Comment: Speci men Type: BLOOD SPECIMEN Ordering Facility: [facility] Address: [address] [place] [address] Performed By: #### 5 7021-8 #### [facility] CLIA [id number] [address] [place] [address] 56781 Eosinophils (Bld) [#/Vol] 0.50 10*3/uL High <0.46 [facility] Comment on above: Order Comment: Speci men Type: BLOOD SPECIMEN Ordering Facility: [facility] Address: [address] [place] [address] Performed By: #### 5 7021-8 #### [facility] CLIA [id number] [address] [place] [address] 46195 Eosinophils/100 WBC (Bld) 8.5 % Normal [facility] Comment on above: Order Comment: Speci men Type: BLOOD SPECIMEN Ordering Facility: [facility] Address: [address] [place] [address] Performed By: #### 5 7021-8 #### [facility] CLIA [id number] [address] [place] [address] Erythrocyte distribution width (RBC) [Ratio] 12.7 % Normal 11.5-15.0 [facility] Comment on above: Order Comment: Speci men Type: BLOOD SPECIMEN Ordering Facility: [facility] Address: [address] [place] [address] Performed By: #### 5 7021-8 #### [facility] CLIA [id number] [address] [place] [address]58 Hematocrit (Bld) [Volume fraction] 35.7 % Low 39.0-51.0 [facility] Comment on above: Order Comment: Speci men Type: BLOOD SPECIMEN Ordering Facility: [facility] Address: [address] [place] [address] Performed By: #### 5 7021-8 #### [facility] CLIA [id number] [address] [place] [address] 45894 Hemoglobin (Bld) [Mass/Vol] 12.2 g/dL Low 13.0-17.0 [facility] Comment on above: Order Comment: Speci men Type: BLOOD SPECIMEN Ordering Facility: [facility] Address: [address] [place] [address] Performed By: #### 5 7021-8 #### [facility] CLIA [id number] [address] [place] [address] 96889 Immature granulocytes (Bld) [#/Vol] 0.04 10*3/uL Normal <0.10 [facility] Comment on above: Order Comment: Speci men Type: BLOOD SPECIMEN Ordering Facility: [facility] Address: [address] [place] [address] Performed By: #### 5 7021-8 #### [facility] CLIA [id number] [address] [place] [address] 65243 Immature granulocytes/100 WBC (Bld) 0.7 % Normal [facility] Comment on above: Order Comment: Speci men Type: BLOOD SPECIMEN Ordering Facility: [facility] Address: [address] [place] [address] Performed By: #### 5 7021-8 #### [facility] CLIA [id number] [address] [place] [address] 06086 Lymphocytes (Bld) [#/Vol] 1.55 10*3/uL Normal 1.00-4.00 [facility] Comment on above: Order Comment: Speci men Type: BLOOD SPECIMEN Ordering Facility: [facility] Address: [address] [place] [address] Performed By: #### 5 7021-8 #### [facility] CLIA [id number] [address] [place] [address] 77230 Lymphocytes/100 WBC (Bld) 26.5 % Normal [facility] Comment on above: Order Comment: Speci men Type: BLOOD SPECIMEN Ordering Facility: [facility] Address: [address] [place] [address] Performed By: #### 5 7021-8 #### [facility] CLIA [id number] [address] [place] [address] 19336 MCH (RBC) [Entitic mass] 32.4 pg Normal 26.0-34.0 [facility] Comment on above: Order Comment: Speci men Type: BLOOD SPECIMEN Ordering Facility: [facility] Address: [address] [place] [address] Performed By: #### 5 7021-8 #### [facility] CLIA [id number] [address] [place] [address] 42491 MCHC (RBC) [Mass/Vol] 34.2 g/dL Normal 30.5-36.0 [facility] Comment on above: Order Comment: Speci men Type: BLOOD SPECIMEN Ordering Facility: [facility] Address: [address] [place] [address] Performed By: #### 5 7021-8 #### [facility] CLIA [id number] [address] [place] [address] 69586 MCV (RBC) [Entitic vol] 94.9 fL Normal 80.0-100.0 [facility] Comment on above: Order Comment: Speci men Type: BLOOD SPECIMEN Ordering Facility: [facility] Address: [address] [place] [address] Performed By: #### 5 7021-8 #### [facility] CLIA [id number] [address] [place] [address] 79724 Monocytes (Bld) [#/Vol] 0.55 10*3/uL Normal <0.87 [facility] Comment on above: Order Comment: Speci men Type: BLOOD SPECIMEN Ordering Facility: [facility] Address: [address] [place] [address] Performed By: #### 5 7021-8 #### [facility] CLIA [id number] [address] [place] [address] 32361 Monocytes/100 WBC (Bld) 9.4 % Normal [facility] Comment on above: Order Comment: Speci men Type: BLOOD SPECIMEN Ordering Facility: [facility] Address: [address] [place] [address] Performed By: #### 5 7021-8 #### [facility] CLIA [id number] [address] [place] [address] 13799 Neutrophils (Bld) [#/Vol] 3.19 10*3/uL Normal 1.45-7.50 [facility] Comment on above: Order Comment: Speci men Type: BLOOD SPECIMEN Ordering Facility: [facility] Address: [address] [place] [address] Performed By: #### 5 7021-8 #### [facility] CLIA [id number] [address] [place] [address] 18339 Neutrophils/100 WBC (Bld) 54.4 % Normal [facility] Comment on above: Order Comment: Speci men Type: BLOOD SPECIMEN Ordering Facility: [facility] Address: [address] [place] [address] Performed By: #### 5 7021-8 #### [facility] CLIA [id number] [address] [place] [address] Nucleated RBC (Bld) [#/Vol] 10*3/uL Normal <0.01 [facility] Comment on above: Order Comment: Speci men Type: BLOOD SPECIMEN Ordering Facility: [facility] Address: [address] [place] [address] Performed By: #### 5 7021-8 #### [facility] CLIA [id number] [address] [place] [address] Nucleated RBC/100 WBC (Bld) [Ratio] 0.0 /100 WBC Normal [facility] Comment on above: Order Comment: Speci men Type: BLOOD SPECIMEN Ordering Facility: [facility] Address: [address] [place] [address] Performed By: #### 5 7021-8 #### [facility] CLIA [id number] [address] [place] [address] 81402 Platelet mean volume (Bld) [Entitic vol] 9.4 fL Normal 9.0-12.7 [facility] Comment on above: Order Comment: Speci men Type: BLOOD SPECIMEN Ordering Facility: [facility] Address: [address] [place] [address] Performed By: #### 5 7021-8 #### [facility] CLIA [id number] [address] [place] [address] 79334 Platelets (Bld) [#/Vol] 177 10*3/uL Normal 150-400 [facility] Comment on above: Order Comment: Speci men Type: BLOOD SPECIMEN Ordering Facility: [facility] Address: [address] [place] [address] Performed By: #### 5 7021-8 #### [facility] CLIA [id number] [address] [place] [address] 40064 RBC (Bld) [#/Vol] 3.76 10*6/uL Low 4.20-6.00 [facility] Comment on above: Order Comment: Speci men Type: BLOOD SPECIMEN Ordering Facility: [facility] Address: [address] [place] [address] [place] [address] Performed By: #### 5 7021-8 #### [facility] CLIA [id number] [address] [place] [address] 66465 WBC (Bld) [#/Vol] 5.86 10*3/uL Normal 3.70-11.00 [facility] Comment on above: Order Comment: Speci men Type: BLOOD SPECIMEN Ordering Facility: [facility] Address: [address] [place], [place] [address] Performed By: #### 5 7021-8 #### [facility] CLIA [id number] [address] [place] [address] 44180 Comprehensive metabolic 2000 panelon 08-01-2024 Albumin [Mass/Vol] 4.2 g/dL Normal 3.9-4.9 [facility] Comment on above: Order Comment: Speci men Type: BLOOD SPECIMEN Ordering Facility: [facility] Address: [address] [place] [address] Performed By: #### 5 7021-8 #### [facility] CLIA [id number] [address] [place] [address] 94580 ALP [Catalytic activity/Vol] 75 U/L Normal 38-113 [facility] Comment on above: Order Comment: Speci men Type: BLOOD SPECIMEN Ordering Facility: [facility] Address: [address] [place] [address] Performed By: #### 5 7021-8 #### [facility] CLIA [id number] [address] [place] [address] 85894 ALT [Catalytic activity/Vol] 17 U/L Normal 10-54 [facility] Comment on above: Order Comment: Speci men Type: BLOOD SPECIMEN Ordering Facility: [facility] Address: [address] [place] [address] Performed By: #### 5 7021-8 #### [facility] CLIA [id number] [address] [place] [address] 77646 Anion gap [Moles/Vol] 11 mmol/L Normal 8-15 [facility] Comment on above: Order Comment: Speci men Type: BLOOD SPECIMEN Ordering Facility: [facility] Address: [address] [place] [address] Performed By: #### 5 7021-8 #### [facility] CLIA [id number] [address] [place] [address] AST [Catalytic activity/Vol] 17 U/L Normal 14-40 [facility] Comment on above: Order Comment: Speci men Type: BLOOD SPECIMEN Ordering Facility: [facility] Address: [address] [place] [address] Performed By: #### 5 7021-8 #### [facility] CLIA [id number] [address] [place] [address] 20236 Bilirubin [Mass/Vol] 0.6 mg/dL Normal 0.2-1.3 [facility] Comment on above: Order Comment: Speci men Type: BLOOD SPECIMEN Ordering Facility: [facility] Address: [address] [place] [address] Performed By: #### 5 7021-8 #### [facility] CLIA [id number] [address] [place] [address] 46915 Calcium [Mass/Vol] 10.3 mg/dL High 8.5-10.2 [facility] Comment on above: Order Comment: Speci men Type: BLOOD SPECIMEN Ordering Facility: [facility] Address: [address] [place] [address] Performed By: #### 5 7021-8 #### [facility] CLIA [id number] [address] [place] [address] 16643 Chloride [Moles/Vol] 100 mmol/L Normal 98-107 [facility] Comment on above: Order Comment: Speci men Type: BLOOD SPECIMEN Ordering Facility: [facility] Address: [address] [place] [address] Performed By: #### 5 7021-8 #### [facility] CLIA [id number] [address] [place] [address] CO2 [Moles/Vol] 26 mmol/L Normal 22-30 [facility] Comment on above: Order Comment: Speci men Type: BLOOD SPECIMEN Ordering Facility: [facility] Address: [address] [place] [address] Performed By: #### 5 7021-8 #### [facility] CLIA [id number] [address] [place] [address] Creatinine [Mass/Vol] 0.81 mg/dL Normal 0.73-1.22 [facility] Comment on above: Order Comment: Speci men Type: BLOOD SPECIMEN Ordering Facility: [facility] Address: [address] [place] [address] Performed By: #### 5 7021-8 #### [facility] CLIA [id number] [address] [place] [address] Creatinine and Glomerular filtration rate.predicted panel (S/P/Bld) 90 mL/min/1.73m??? Normal >=60 [facility] Comment on above: Order Comment: Speci men Type: BLOOD SPECIMEN Ordering Facility: [facility] Address: [address] [place] [address] 96683 Result Comment: Renae mated Glomerular Filtration Rate [...] GFR. Performed By: #### 5 7021-8 #### [facility] CLIA [id number] [address] [place] [address] 67364 Glucose [Mass/Vol] 119 mg/dL High 74-99 [facility] Comment on above: Order Comment: Speci men Type: BLOOD SPECIMEN Ordering Facility: [facility] Address: [address] [place] [address] Result Comment: The [place] [employer] (ADA) provides guidance for cutoff [...] Standards of Medical Care in Diabetes 2016, [place] [employer]. Diabetes Care. 2016.39(Suppl 1). Performed By: #### 5 7021-8 #### [facility] CLIA [id number] [address] [place] [address] Potassium [Moles/Vol] 4.8 mmol/L Normal 3.7-5.1 [facility] Comment on above: Order Comment: Speci ton Type: BLOOD SPECIMEN Ordering Facility: [facility] Address: [address] [place] [address] Performed By: #### 5 7021-8 #### [facility] CLIA [id number] [address] [place] [address] Protein [Mass/Vol] 6.3 g/dL Normal 6.3-8.0 [facility] Comment on above: Order Comment: Nicanor camilo Type: BLOOD SPECIMEN Ordering Facility: [facility] Address: [address] [place], [place] [address] Performed By: #### 5 7021-8 #### [facility] CLIA [id number] [address] [place] [address] 99175 Sodium [Moles/Vol] 137 mmol/L Normal 136-144 [facility] Comment on above: Order Comment: Francii ton Type: BLOOD SPECIMEN Ordering Facility[facility] Address: [address] [place] [address] Performed By: #### 5 7021-8 #### [facility] CLIA [id number] [address] [place] [address] Urea nitrogen [Mass/Vol] 14 mg/dL Normal 9-24 [facility] Comment on above: Order Comment: Speci men Type: BLOOD SPECIMEN Ordering Facility: [facility] Address: [address] [place] [address] Performed By: #### 5 7021-8 #### [facility] CLIA [id number] [address] [place] [address] PSA SerPl-ncon 08-01-2024 Prostate specific Ag [Mass/Vol] 0.19 ng/mL Normal <2.60 [facility] Comment on above: Order Comment: Speci men Type: BLOOD SPECIMEN Ordering Facility: [facility] Address: [address] [place] [address] Result Comment: Tota l PSA test methodology used is the Electrochemiluminescence Immunoassay by [employer]. Total PSA values by differing methodologies cannot be interchanged. Performed By: #### 2 857-1 #### [facility] CLIA [id number] [address] [place] [address] [facility] CNOVSPon 05-09-2024 CNOVSP Visit (SP) Office (H EMASA) JERICAPABLO An ([id number]) 1945 M Date Time Provider Department 05/09/24 9:15 AM MARCO A ESQUEDA During your visit today, we recorded the following information about you: Temperature Pulse Respiration Blood pressure 97.3 degrees 62/minute 16/minute 141/62 Weight 92.1 kg Marco A Esqueda MD 05/10/2024 7:40 AM Signed PATIENT NAME: Pablo Felix DATE: 05/09/2024 PRIMARY CARE PHYSICIAN: Dr. Jamar Fall OTHER PHYSICIANS: Dr. Anthony Scruggs, Dr. Khan, [facility] Cardiology Portions of this encounter [...] mg 24 hr tablet Take by mouth. 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 Left base margin positive for neoplasm. Seminal vesicles with no diagnostic abnormality. 2 resected lymph nodes negative for neoplasm. LABS: Hemoglobin (g/dL) Date Value 05/03/2024 11.5 05/08/2018 12.8 Hematocrit (%) Date Value 05/03/2024 33.2 05/08/2018 36.8 WBC (k/uL) Date Value 1 (more content not included)... Normal [facility] CBC W Auto Differential pane l (Bld)on 05-03-2024 Basophils (Bld) [#/Vol] 0.03 10*3/uL Normal <0.11 [facility] Comment on above: Order Comment: Speci men Type: BLOOD SPECIMEN Ordering Facility: [facility] Address: [address] [place] [address] Performed By: #### 5 7021-8 #### [facility] CLIA [id number] [address] [place] [address] Basophils/100 WBC (Bld) 0.5 % Normal [facility] Comment on above: Order Comment: Speci men Type: BLOOD SPECIMEN Ordering Facility: [facility] Address: [address] [place] [address] Performed By: #### 5 7021-8 #### [facility] CLIA [id number] [address] [place] [address] Differential cell count method Nom (Bld) Auto Normal [facility] Comment on above: Order Comment: Speci men Type: BLOOD SPECIMEN Ordering Facility: [facility] Address: [address] [place] [address] Performed By: #### 5 7021-8 #### [facility] CLIA [id number] [address] [place] [address] Eosinophils (Bld) [#/Vol] 0.48 10*3/uL High <0.46 [facility] Comment on above: Order Comment: Speci men Type: BLOOD SPECIMEN Ordering Facility: [facility] Address: [address] [place] [address] Performed By: #### 5 7021-8 #### [facility] CLIA [id number] [address] [place] [address] Eosinophils/100 WBC (Bld) 8.0 % Normal [facility] Comment on above: Order Comment: Speci men Type: BLOOD SPECIMEN Ordering Facility: [facility] Address: [address] [place] [address] Performed By: #### 5 7021-8 #### [facility] CLIA [id number] [address] [place] [address] Erythrocyte distribution width (RBC) [Ratio] 12.6 % Normal 11.5-15.0 [facility] Comment on above: Order Comment: Speci men Type: BLOOD SPECIMEN Ordering Facility: [facility] Address: [address] [place] [address] Performed By: #### 5 7021-8 #### [facility] CLIA [id number] [address] [place] [address] Hematocrit (Bld) [Volume fraction] 33.2 % Low 39.0-51.0 [facility] Comment on above: Order Comment: Speci men Type: BLOOD SPECIMEN Ordering Facility: [facility] Address: [address] [place] [address] Performed By: #### 5 7021-8 #### [facility] CLIA [id number] [address] [place] [address] Hemoglobin (Bld) [Mass/Vol] 11.5 g/dL Low 13.0-17.0 [facility] Comment on above: Order Comment: Speci men Type: BLOOD SPECIMEN Ordering Facility: [facility] Address: [address] [place] [address] Performed By: #### 5 7021-8 #### [facility] CLIA [id number] [address] [place] [address] Immature granulocytes (Bld) [#/Vol] 0.04 10*3/uL Normal <0.10 [facility] Comment on above: Order Comment: Speci men Type: BLOOD SPECIMEN Ordering Facility: [facility] Address: [address] [place] [address] Performed By: #### 5 7021-8 #### [facility] CLIA [id number] [address] [place] [address] Immature granulocytes/100 WBC (Bld) 0.7 % Normal [facility] Comment on above: Order Comment: Speci men Type: BLOOD SPECIMEN Ordering Facility: [facility] Address: [address] [place] [address] Performed By: #### 5 7021-8 #### [facility] CLIA [id number] [address] [place] [address] Lymphocytes (Bld) [#/Vol] 1.76 10*3/uL Normal 1.00-4.00 [facility] Comment on above: Order Comment: Speci men Type: BLOOD SPECIMEN Ordering Facility: [facility] Address: [address] [place] [address] Performed By: #### 5 7021-8 #### [facility] CLIA [id number] [address] [place] [address] Lymphocytes/100 WBC (Bld) 29.4 % Normal [facility] Comment on above: Order Comment: Speci men Type: BLOOD SPECIMEN Ordering Facility: [facility] Address: [address] [place] [address] Performed By: #### 5 7021-8 #### [facility] CLIA [id number] [address] [place] [address]68 MCH (RBC) [Entitic mass] 33.0 pg Normal 26.0-34.0 [facility] Comment on above: Order Comment: Speci men Type: BLOOD SPECIMEN Ordering Facility: [facility] Address: [address] [place] [address] Performed By: #### 5 7021-8 #### [facility] CLIA [id number] [address] [place] [address]756 MCHC (RBC) [Mass/Vol] 34.6 g/dL Normal 30.5-36.0 [facility] Comment on above: Order Comment: Speci men Type: BLOOD SPECIMEN Ordering Facility: [facility] Address: [address] [place] [address] Performed By: #### 5 7021-8 #### [facility] CLIA [id number] [address] [place] [address]62 MCV (RBC) [Entitic vol] 95.1 fL Normal 80.0-100.0 [facility] Comment on above: Order Comment: Speci men Type: BLOOD SPECIMEN Ordering Facility: [facility] Address: [address] [place] [address] Performed By: #### 5 7021-8 #### [facility] CLIA [id number] [address] [place] [address] Monocytes (Bld) [#/Vol] 0.48 10*3/uL Normal <0.87 [facility] Comment on above: Order Comment: Speci men Type: BLOOD SPECIMEN Ordering Facility: [facility] Address: [address] [place] [address] Performed By: #### 5 7021-8 #### [facility] CLIA [id number] [address] [place] [address]19 Monocytes/100 WBC (Bld) 8.0 % Normal [facility] Comment on above: Order Comment: Speci men Type: BLOOD SPECIMEN Ordering Facility: [facility] Address: [address] [place] [address] Performed By: #### 5 7021-8 #### [facility] CLIA [id number] [address] [place] [address] Neutrophils (Bld) [#/Vol] 3.19 10*3/uL Normal 1.45-7.50 [facility] Comment on above: Order Comment: Speci men Type: BLOOD SPECIMEN Ordering Facility: [facility] Address: [address] [place] [address] Performed By: #### 5 7021-8 #### [facility] CLIA [id number] [address] [place] [address] Neutrophils/100 WBC (Bld) 53.4 % Normal [facility] Comment on above: Order Comment: Speci men Type: BLOOD SPECIMEN Ordering Facility: [facility] Address: [address] [place] [address] Performed By: #### 5 7021-8 #### [facility] CLIA [id number] [address] [place] [address]0932 Nucleated RBC (Bld) [#/Vol] 10*3/uL Normal <0.01 [facility] Comment on above: Order Comment: Speci men Type: BLOOD SPECIMEN Ordering Facility: [facility] Address: [address] [place] [address] Performed By: #### 5 7021-8 #### [facility] CLIA [id number] [address] [place] [address] Nucleated RBC/100 WBC (Bld) [Ratio] 0.0 /100 WBC Normal [facility] Comment on above: Order Comment: Speci men Type: BLOOD SPECIMEN Ordering Facility: [facility] Address: [address] [place] [address] Performed By: #### 5 7021-8 #### [facility] CLIA [id number] [address] [place] [address] 16440 Platelet mean volume (Bld) [Entitic vol] 9.3 fL Normal 9.0-12.7 [facility] Comment on above: Order Comment: Speci men Type: BLOOD SPECIMEN Ordering Facility: [facility] Address: [address] [place] [address] Performed By: #### 5 7021-8 #### [facility] CLIA [id number] [address] [place] [address] 21938 Platelets (Bld) [#/Vol] 192 10*3/uL Normal 150-400 [facility] Comment on above: Order Comment: Speci men Type: BLOOD SPECIMEN Ordering Facility: [facility] Address: [address] [place] [address] Performed By: #### 5 7021-8 #### [facility] CLIA [id number] [address] [place] [address] RBC (Bld) [#/Vol] 3.49 10*6/uL Low 4.20-6.00 [facility] Comment on above: Order Comment: Speci men Type: BLOOD SPECIMEN Ordering Facility: [facility] Address: [address] [place] [address] Performed By: #### 5 7021-8 #### [facility] CLIA [id number] [address] [place] [address] WBC (Bld) [#/Vol] 5.98 10*3/uL Normal 3.70-11.00 [facility] Comment on above: Order Comment: Speci men Type: BLOOD SPECIMEN Ordering Facility: [facility] Address: [address] [place] [address] Performed By: #### 5 7021-8 #### [facility] CLIA [id number] [address] [place] [address] 85756 Comprehensive metabolic 2000 panelon 05-03-2024 Albumin [Mass/Vol] 3.9 g/dL Normal 3.9-4.9 [facility] Comment on above: Order Comment: Speci men Type: BLOOD SPECIMEN Ordering Facility[facility] Address: [address] [place] [address] Performed By: #### 5 7021-8 #### [facility] CLIA [id number] [address] [place] [address]019 ALP [Catalytic activity/Vol] 71 U/L Normal 38-113 [facility] Comment on above: Order Comment: Speci men Type: BLOOD SPECIMEN Ordering Facility[facility] Address: [address] [place] [address] Performed By: #### 5 7021-8 #### [facility] CLIA [id number] [address] [place] [address] 79471 ALT [Catalytic activity/Vol] 16 U/L Normal 10-54 [facility] Comment on above: Order Comment: Speci men Type: BLOOD SPECIMEN Ordering Facility[facility] Address: [address] [place] [address] Performed By: #### 5 7021-8 #### [facility] CLIA [id number] [address] [place] [address] Anion gap [Moles/Vol] 9 mmol/L Normal 8-15 [facility] Comment on above: Order Comment: Speci men Type: BLOOD SPECIMEN Ordering Facility[facility] Address: [address] [place] [address] Performed By: #### 5 7021-8 #### [facility] CLIA [id number] [address] [place] [address] AST [Catalytic activity/Vol] 17 U/L Normal 14-40 [facility] Comment on above: Order Comment: Speci men Type: BLOOD SPECIMEN Ordering Facility: [facility] Address: [address] [place], [place] [address] Performed By: #### 5 7021-8 #### [facility] CLIA [id number] [address] [place] [address]58 Bilirubin [Mass/Vol] 0.5 mg/dL Normal 0.2-1.3 [facility] Comment on above: Order Comment: Speci men Type: BLOOD SPECIMEN Ordering Facility: [facility] Address: [address] [place] [address] Performed By: #### 5 7021-8 #### [facility] CLIA [id number] [address] [place] [address] 10878 Calcium [Mass/Vol] 9.5 mg/dL Normal 8.5-10.2 [facility] Comment on above: Order Comment: Speci men Type: BLOOD SPECIMEN Ordering Facility[facility] Address: [address] [place] [address] Performed By: #### 5 7021-8 #### [facility] CLIA [id number] [address] [place] [address] 26368 Chloride [Moles/Vol] 104 mmol/L Normal 98-107 [facility] Comment on above: Order Comment: Speci men Type: BLOOD SPECIMEN Ordering Facility: [facility] Address: [address] [place], [place] [address] Performed By: #### 5 7021-8 #### [facility] CLIA [id number] [address] [place] [address] CO2 [Moles/Vol] 26 mmol/L Normal 22-30 [facility] Comment on above: Order Comment: Nicanor camilo Type: BLOOD SPECIMEN Ordering Facility[facility] Address: [address] [place] [address] Performed By: #### 5 7021-8 #### [facility] CLIA [id number] [address] [place] [address]125 Creatinine [Mass/Vol] 0.88 mg/dL Normal 0.73-1.22 [facility] Comment on above: Order Comment: Nicanor men Type: BLOOD SPECIMEN Ordering Facility[facility] Address: [address] [place] [address] Performed By: #### 5 7021-8 #### [facility] CLIA [id number] [address] [place] [address]15 Creatinine and Glomerular filtration rate.predicted panel (S/P/Bld) 88 mL/min/1.73m??? Normal >=60 [facility] Comment on above: Order Comment: Nicanor camilo Type: BLOOD SPECIMEN Ordering Facility[facility] Address: [address] [place] [address] Result Comment: Renae mated Glomerular Filtration Rate [...] GFR. Performed By: #### 5 7021-8 #### [facility] CLIA [id number] [address] [place] [address] 82426 Glucose [Mass/Vol] 106 mg/dL High 74-99 [facility] Comment on above: Order Comment: Nicanor camilo Type: BLOOD SPECIMEN Ordering Facility[facility] Address: [address] [place] [id number] Result Comment: The [place] [employer] (ADA) provides guidance for cutoff [...] Standards of Medical Care in Diabetes 2016, [place] [employer]. Diabetes Care. 2016.39(Suppl 1). Performed By: #### 5 7021-8 #### [facility] CLIA [id number] [address] [place] [address]177 Potassium [Moles/Vol] 5.6 mmol/L High 3.7-5.1 [facility] Comment on above: Order Comment: Nicanor camilo Type: BLOOD SPECIMEN Order[facility] Facility[facility] Address: [address] [place] [address] Performed By: #### 5 7021-8 #### [facility] CLIA [id number] [address] [place] [address] 01096 Protein [Mass/Vol] 6.3 g/dL Normal 6.3-8.0 [facility] Comment on above: Order Comment: Nicanor camilo Type: BLOOD SPECIMEN Order[facility] Address: [address] [place] [phone] Performed By: #### 5 7021-8 #### [facility] CLIA [id number] [address] [place] [address] 39632 Sodium [Moles/Vol] 139 mmol/L Normal 136-144 [facility] Comment on above: Order Comment: Francii men Type: BLOOD SPECIMEN Ordering Facility[facility] Address: [address] [place] [address] Performed By: #### 5 7021-8 #### [facility] CLIA [id number] [address] [place] [address] 14703 Urea nitrogen [Mass/Vol] 19 mg/dL Normal 9-24 [facility] Comment on above: Order Comment: Speci men Type: BLOOD SPECIMEN Ordering Facility[facility] Address: [address] [place] [phone] Performed By: #### 5 7021-8 #### [facility] CLIA [id number] [address] [place] [address] [facility] Prostate specific Ag [Mass/Vol] 0.18 ng/mL Normal <2.60 [facility] Comment on above: Order Comment: Speci men Type: BLOOD SPECIMEN Order[facility] Address: [address] [place] [phone] Result Comment: Tota l PSA test methodology used is the Electrochemiluminescence Immunoassay by [employer]. Total PSA values by differing methodologies cannot be interchanged. Performed By: #### 5 7021-8 #### [facility] CLIA [id number] [address] [place] [address] Ambulatory Visit Summaryon 1 Ambulatory Visit Summary Ambulatory Visit Summary PABLO FELIX :1945 Visit Date:04/19/2024 Ambulatory Visit Instructions Your Diagnosis Prostate cancer Rising PSA following treatment for malignant neoplasm of prostate Microscopic hematuria Kidney stones Your Care Team Attending Physician - KAEL JAMES, Anthony Lee Primary Care Physician - JUAN DAVID SEGUNDO, JAMAR This Is Your Medications List Contact prescribing physician if questions or concerns aspirin (aspirin 81 mg oral tablet) atorvastatin (atorvastatin 40 mg Tab) cholecalciferol (Vitamin D3) enzalutamide (Xtandi 80 mg oral tablet) glimepiride hydrochlorothiazide-lisinop ril (hydrochlorothiazide-lisino pril 12.5 mg-20 mg Tab) ipratropium nasal (ipratropium Nasal 0.06% [place]) metformin (metformin 1000 mg oral tablet) metoprolol [...] Anthony SCRUGGS MD Where: [facility] [address] [address] [place] [address]- You Need to Schedule the Following Appointments Follow Up with Anthony SCRUGGS MD, URL When: Where: [address] [place] [address]- Medications What How Much When Instructions Unchanged [...] concerns Unchanged ipratropium nasal (ipratropium Nasal 0.06% [place]) Contact prescribing physician if questions or concerns [...] Trouble st (more content not included)... Normal [facility] Urology Office/Clinic Noteon 04-19-2024 Urology [...] qd and Xgeva q3mos. Last seen by [facility] oncology 02/02/24. Plan at that time was [...] When Contact Information KAEL JAMES, Anthony Lee, [address] [address]- Additional Instructions: 6 mos w/ PSA and [...] hydrochlorothiazide-lisinop ril (more content not included)... Normal [facility] Comment on above: Result Comment: Elec tronically Signed By: Anthony SCRUGGS MD\.br\Date and Time Signed: 04/19/24 08:47 EDT\.br\Electronically Co-Signed By: Olamide Ureña\.br\Date and Time Co-Signed: 04/19/24 08:45 EDT Office Visiton 03-29-2024 Follow-up visit [id number] Pablo Felix 1945 M Date Provider Department Center 03/29/2024 Ag-[facility] [facility] Family History Problem Relation Age of Onset Coronary artery disease Father Family Status - Relation Status Age at Father Level of Service:07018 NC OFFICE/OUTPATIENT ESTABLISHED MOD MDM 30 MIN Normal [facility] CNOVSPon 02-02-2024 CNOVSP Visit (SP) Office (H EMASA) PABLO FELIX ([id number]) 1945 M Date Time Provider Department 02/02/24 11:30 AM LYNNE ALARCON During your visit today, we recorded the following information about you: Temperature Pulse Respiration Blood pressure 97.3 degrees 52/minute 16/minute 137/54 Weight Height 93.7 kg 1.676 m Lynne Alarcon APRN.[employer] 02/02/2024 11:37 AM Signed PATIENT NAME: Pablo Felix DATE: February 02, 2024 PRIMARY CARE PHYSICIAN: Dr. Jamar Fall OTHER PHYSICIANS: Dr. Anthony Scruggs, Dr. Khan, [facility] Cardiology This note was copied [...] mg 24 hr tablet Take by mouth. 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 Left base margin positive for neoplasm. Seminal vesicles with no diagnostic abnormality. 2 resected lymph nodes negative for neoplasm. LABS: Hemoglobin (g/dL) Date Va (more content not included)... Normal [facility] Basophils Auto (Bld) [#/Vol] on 01-25-2024 Basophils (Bld) [#/Vol] 0.04 10*3/uL <0.11 Basophils/100 WBC Auto (Bld) on 01-25-2024 Basophils/100 WBC (Bld) 0.6 % Blood manual differential co mment interpretation narrativeon 01-25-2024 Manual differential comment [place] (Bld) [Interp] Auto CBC W Auto Differential pane l (Bld)on 01-25-2024 Basophils (Bld) [#/Vol] 0.04 10*3/uL Normal <0.11 [facility] Comment on above: Order Comment: Speci men Type: BLOOD SPECIMEN [facility] Address: [address] [place] [address] Performed By: #### 5 7021-8 #### [facility] CLIA [id number] [address] [place] [address] Basophils/100 WBC (Bld) 0.6 % Normal [facility] Comment on above: Order Comment: Speci men Type: BLOOD SPECIMEN Order[facility] Address: [address] [place] [address] Performed By: #### 5 7021-8 #### [facility] CLIA [id number] [address] [place] [address] 11252 Differential cell count method Nom (Bld) Auto Normal [facility] Comment on above: Order Comment: Speci men Type: BLOOD SPECIMEN Order[facility] Address: [address] [place] [address] Performed By: #### 5 7021-8 #### [facility] CLIA [id number] [address] [place] [address] 73168 Eosinophils (Bld) [#/Vol] 0.40 10*3/uL Normal <0.46 [facility] Comment on above: Order Comment: Speci men Type: BLOOD SPECIMEN Order[facility] Address: [address] [place] [address] Performed By: #### 5 7021-8 #### [facility] CLIA [id number] [address] [place] [address] 26564 Eosinophils/100 WBC (Bld) 5.9 % Normal [facility] Comment on above: Order Comment: Speci men Type: BLOOD SPECIMEN Ordering Facility[facility] Address: [address] [place] [address] Performed By: #### 5 7021-8 #### [facility] CLIA [id number] [address] [place] [address]239 Erythrocyte distribution width (RBC) [Ratio] 12.7 % Normal 11.5-15.0 [facility] Comment on above: Order Comment: Speci men Type: BLOOD SPECIMEN Order[facility] Address: [address] [place] [address] Performed By: #### 5 7021-8 #### [facility] CLIA [id number] [address] [place] [address] Hematocrit (Bld) [Volume fraction] 34.6 % Low 39.0-51.0 [facility] Comment on above: Order Comment: Speci men Type: BLOOD SPECIMEN Ordering Facility: [facility] Address: [address] [place] [address] Performed By: #### 5 7021-8 #### [facility] CLIA [id number] [address] [place] [address] 84311 Hemoglobin (Bld) [Mass/Vol] 11.8 g/dL Low 13.0-17.0 [facility] Comment on above: Order Comment: Speci men Type: BLOOD SPECIMEN Ordering Facility: [facility] Address: [address] [place] [address] Performed By: #### 5 7021-8 #### [facility] CLIA [id number] [address] [place] [address] 20512 Immature granulocytes (Bld) [#/Vol] 0.07 10*3/uL Normal <0.10 [facility] Comment on above: Order Comment: Speci men Type: BLOOD SPECIMEN Ordering Facility: [facility] Address: [address] [place] [address] Performed By: #### 5 7021-8 #### [facility] CLIA [id number] [address] [place] [address] 19384 Immature granulocytes/100 WBC (Bld) 1.0 % Normal [facility] Comment on above: Order Comment: Speci men Type: BLOOD SPECIMEN Ordering Facility: [facility] Address: [address] [place] [address] Performed By: #### 5 7021-8 #### [facility] CLIA [id number] [address] [place] [address] Lymphocytes (Bld) [#/Vol] 2.16 10*3/uL Normal 1.00-4.00 [facility] Comment on above: Order Comment: Speci men Type: BLOOD SPECIMEN Ordering Facility: [facility] Address: [address] [place] [address] Performed By: #### 5 7021-8 #### [facility] CLIA [id number] [address] [place] [address] 68061 Lymphocytes/100 WBC (Bld) 31.8 % Normal [facility] Comment on above: Order Comment: Speci men Type: BLOOD SPECIMEN Ordering Facility: [facility] Address: [address] [place] [address] Performed By: #### 5 7021-8 #### [facility] CLIA [id number] [address] [place] [address] 13906 MCH (RBC) [Entitic mass] 32.2 pg Normal 26.0-34.0 [facility] Comment on above: Order Comment: Speci men Type: BLOOD SPECIMEN Ordering Facility: [facility] Address: [address] [place] [address] Performed By: #### 5 7021-8 #### [facility] CLIA [id number] [address] [place] [address] 96869 MCHC (RBC) [Mass/Vol] 34.1 g/dL Normal 30.5-36.0 [facility] Comment on above: Order Comment: Speci men Type: BLOOD SPECIMEN Ordering Facility: [facility] Address: [address] [place] [address] 835[address] Performed By: #### 5 7021-8 #### [facility] CLIA [id number] [address] [place] [address] 24174 MCV (RBC) [Entitic vol] 94.3 fL Normal 80.0-100.0 [facility] Comment on above: Order Comment: Speci men Type: BLOOD SPECIMEN Ordering Facility: [facility] Address: [address] [place] [address] 33178 Performed By: #### 5 7021-8 #### [facility] CLIA [id number] [address] [place] [address] 91054 Monocytes (Bld) [#/Vol] 0.60 10*3/uL Normal <0.87 [facility] Comment on above: Order Comment: Speci men Type: BLOOD SPECIMEN Ordering Facility: [facility] Address: [address] [place] [address] 24532 Performed By: #### 5 7021-8 #### [facility] CLIA [id number] [address] [place] [address] 94274 Monocytes/100 WBC (Bld) 8.8 % Normal [facility] Comment on above: Order Comment: Speci men Type: BLOOD SPECIMEN Ordering Facility: [facility] Address: [address] [place] [address] 93323 Performed By: #### 5 7021-8 #### [facility] CLIA [id number] [address] [place] [address] 32525 Neutrophils (Bld) [#/Vol] 3.53 10*3/uL Normal 1.45-7.50 [facility] Comment on above: Order Comment: Speci men Type: BLOOD SPECIMEN Ordering Facility: [facility] Address: [address] [place] [address] 44416 Performed By: #### 5 7021-8 #### [facility] CLIA [id number] [address] [place] [address] 91783 Neutrophils/100 WBC (Bld) 51.9 % Normal [facility] Comment on above: Order Comment: Speci men Type: BLOOD SPECIMEN Ordering Facility: [facility] Address: [address] [place] [address] Performed By: #### 5 7021-8 #### [facility] CLIA [id number] [address] [place] [address] Nucleated RBC (Bld) [#/Vol] 10*3/uL Normal <0.01 [facility] Comment on above: Order Comment: Speci men Type: BLOOD SPECIMEN Ordering Facility: [facility] Address: [address] [place] [address] Performed By: #### 5 7021-8 #### [facility] CLIA [id number] [address] [place] [address] Nucleated RBC/100 WBC (Bld) [Ratio] 0.0 /100 WBC Normal [facility] Comment on above: Order Comment: Speci men Type: BLOOD SPECIMEN Ordering Facility: [facility] Address: [address] [place] [address] Performed By: #### 5 7021-8 #### [facility] CLIA [id number] [address] [place] [address] Platelet mean volume (Bld) [Entitic vol] 10.3 fL Normal 9.0-12.7 [facility] Comment on above: Order Comment: Speci men Type: BLOOD SPECIMEN Ordering Facility: [facility] Address: [address] [place] [address] Performed By: #### 5 7021-8 #### [facility] CLIA [id number] [address] [place] [address] Platelets (Bld) [#/Vol] 184 10*3/uL Normal 150-400 [facility] Comment on above: Order Comment: Speci men Type: BLOOD SPECIMEN Ordering Facility: [facility] Address: [address] [place] [address] Performed By: #### 5 7021-8 #### [facility] CLIA [id number] [address] [place] [address] RBC (Bld) [#/Vol] 3.67 10*6/uL Low 4.20-6.00 [facility] Comment on above: Order Comment: Speci men Type: BLOOD SPECIMEN Ordering Facility: [facility] Address: [facility] [place] [address] Performed By: #### 5 7021-8 #### [facility] CLIA [id number] [address] [place] [address] 52476 WBC (Bld) [#/Vol] 6.80 10*3/uL Normal 3.70-11.00 [facility] Comment on above: Order Comment: Speci men Type: BLOOD SPECIMEN Ordering Facility: [facility] Address: [address] [place] [address] 05614 Performed By: #### 5 7021-8 #### [facility] CLIA [id number] [address] [place] [address] 64144 Comprehensive metabolic 2000 panelon 01-25-2024 Albumin [Mass/Vol] 4.0 g/dL Normal 3.9-4.9 [facility] Comment on above: Order Comment: Speci men Type: BLOOD SPECIMEN Ordering Facility: [facility] Address: [address] [place] [address] 46164 Performed By: #### 5 7021-8 #### [facility] CLIA [id number] [address] [place] [address] 78339 ALP [Catalytic activity/Vol] 74 U/L Normal 38-113 [facility] Comment on above: Order Comment: Speci men Type: BLOOD SPECIMEN Ordering Facility: [facility] Address: [address] [place] [address] Performed By: #### 5 7021-8 #### [facility] CLIA [id number] [address] [place] [address] 43274 ALT [Catalytic activity/Vol] 18 U/L Normal 10-54 [facility] Comment on above: Order Comment: Speci men Type: BLOOD SPECIMEN Ordering Facility: [facility] Address: [address] [place] [address] 08379 Performed By: #### 5 7021-8 #### [facility] CLIA [id number] [address] [place] [address] Anion gap [Moles/Vol] 9 mmol/L Normal 8-15 [facility] Comment on above: Order Comment: Speci men Type: BLOOD SPECIMEN Ordering Facility: [facility] Address: [address] [place] [address] Performed By: #### 5 7021-8 #### [facility] CLIA [id number] [address] [place] [address] AST [Catalytic activity/Vol] 19 U/L Normal 14-40 [facility] Comment on above: Order Comment: Speci men Type: BLOOD SPECIMEN Ordering Facility: [facility] Address: [address] [place] [address] 93521 Performed By: #### 5 7021-8 #### [facility] CLIA [id number] [address] [place] [address] 10958 Bilirubin [Mass/Vol] 0.7 mg/dL Normal 0.2-1.3 [facility] Comment on above: Order Comment: Speci men Type: BLOOD SPECIMEN Ordering Facility: [facility] Address: [address] [place] [address]17[address] Performed By: #### 5 7021-8 #### [facility] CLIA [id number] [address] [place] [address] 92095 Calcium [Mass/Vol] 9.9 mg/dL Normal 8.5-10.2 [facility] Comment on above: Order Comment: Speci men Type: BLOOD SPECIMEN Ordering Facility: [facility] Address: [address] [place] [address] Performed By: #### 5 7021-8 #### [facility] CLIA [id number] [address] [place] [address] 93154 Chloride [Moles/Vol] 103 mmol/L Normal 98-107 [facility] Comment on above: Order Comment: Speci men Type: BLOOD SPECIMEN Ordering Facility: [facility] Address: [address] [place] [address] 80562 Performed By: #### 5 7021-8 #### [facility] CLIA [id number] [address] [place] [address] CO2 [Moles/Vol] 25 mmol/L Normal 22-30 [facility] Comment on above: Order Comment: Speci men Type: BLOOD SPECIMEN Ordering Facility: [facility] Address: [address] [place] [address] Performed By: #### 5 7021-8 #### [facility] CLIA [id number] [address] [place] [address] 82449 Creatinine [Mass/Vol] 0.79 mg/dL Normal 0.73-1.22 [facility] Comment on above: Order Comment: Francii men Type: BLOOD SPECIMEN Ordering Facility: [facility] Address: [address] [place] [address] Performed By: #### 5 7021-8 #### [facility] CLIA [id number] [address] [place] [address] 17874 Creatinine and Glomerular filtration rate.predicted panel (S/P/Bld) 91 mL/min/1.73m??? Normal >=60 [facility] Comment on above: Order Comment: Francii ton Type: BLOOD SPECIMEN Ordering Facility: [facility] Address: [address] [place] [address] Result Comment: Renae mated Glomerular Filtration Rate [...] GFR. Performed By: #### 5 7021-8 #### [facility] CLIA [id number] [address] [place] [address] 65972 Glucose [Mass/Vol] 112 mg/dL High 74-99 [facility] Comment on above: Order Comment: Speci men Type: BLOOD SPECIMEN Ordering Facility: [facility] Address: [address] [place] [address] Result Comment: The [place] Diabetes Association (ADA) provides guidance for cutoff [...] Standards of Medical Care in Diabetes 2016, [place] [employer]. Diabetes Care. 2016.39(Suppl 1). Performed By: #### 5 7021-8 #### [facility] CLIA [id number] [address] [place] [address] 10234 Potassium [Moles/Vol] 5.2 mmol/L High 3.7-5.1 [facility] Comment on above: Order Comment: Speci men Type: BLOOD SPECIMEN Ordering Facility: [facility] Address: [address] [place] [address] Performed By: #### 5 7021-8 #### [facility] CLIA [id number] [address] [place] [address] 89582 Protein [Mass/Vol] 6.6 g/dL Normal 6.3-8.0 [facility] Comment on above: Order Comment: Speci men Type: BLOOD SPECIMEN Ordering Facility: [facility] Address: [address] [place] [address] Performed By: #### 5 7021-8 #### [facility] CLIA [id number] [address] [place] [address] 62198 Sodium [Moles/Vol] 137 mmol/L Normal 136-144 [facility] Comment on above: Order Comment: Speci men Type: BLOOD SPECIMEN Ordering Facility[facility] Address: [address] [place] [address] Performed By: #### 5 7021-8 #### [facility] CLIA [id number] [address] [place] [address] Urea nitrogen [Mass/Vol] 15 mg/dL Normal 9-24 [facility] Comment on above: Order Comment: Speci men Type: BLOOD SPECIMEN Ordering Facility: [facility] Address: [address] [place] [address] 64663 Performed By: #### 5 7021-8 #### [facility] CLIA [id number] [address] [place] [address] 96997 Eosinophils/100 WBC Auto (Bl d)on 01-25-2024 Eosinophils/100 WBC (Bld) 5.9 % Erythrocyte distribution wid th Auto (RBC) [Ratio]on 01-25-2024 Erythrocyte distribution width (RBC) [Ratio] 12.7 % 11.5-15.0 Hematocrit Auto (Bld) [Volum e fraction]on 01-25-2024 Hematocrit (Bld) [Volume fraction] 34.6 % Low 39.0-51.0 Hemoglobin [Mass/volume] in Bloodon 01-25-2024 Hemoglobin (Bld) [Mass/Vol] 11.8 g/dL Low 13.0-17.0 Laboratory - Chemistry and C hemistry - challengeon 01-25-2024 Albumin [Mass/Vol] 4.0 g/dL 3.9-4.9 [facility] ALP [Catalytic activity/Vol] 74 U/L 38-113 ALT [Catalytic activity/Vol] 18 U/L 10-54 AST [Catalytic activity/Vol] 19 U/L 14-40 Bilirubin [Mass/Vol] 0.7 mg/dL 0.2-1.3 Calcium [Mass/Vol] 9.9 mg/dL 8.5-10.2 [facility] Chloride [Moles/Vol] 103 mmol/L 98-107 CO2 [Moles/Vol] 25 mmol/L 22-30 Creatinine [Mass/Vol] 0.79 mg/dL 0.73-1.22 Glucose [Mass/Vol] 112 mg/dL High 74-99 [facility] Comment on above: The [place] Diabete s Association (ADA) provides guidance for [...] Standards of Medical Care in Diabetes 2016, [place] [employer]. Diabetes Care. 2016.39(Suppl 1). Potassium [Moles/Vol] 5.2 mmol/L High 3.7-5.1 Sodium [Moles/Vol] 137 mmol/L 136-144 [facility] Urea nitrogen [Mass/Vol] 15 mg/dL 9 Laboratory - Hematology and Cell countson 01-25-2024 Eosinophils (Bld) [#/Vol] 0.40 10*3/uL <0.46 Immature granulocytes (Bld) [#/Vol] 0.07 10*3/uL <0.10 Immature granulocytes/100 WBC (Bld) 1.0 % Leukocytes [#/volume] correc jomar for nucleated erythrocytes in Blood by Automated counon 01-25-2024 WBC corrected for nucl RBC Auto (Bld) [#/Vol] 6.80 k/uL 3.70-11.00 Lymphocytes Auto (Bld) [#/Vo l]on 01-25-2024 Lymphocytes (Bld) [#/Vol] 2.16 10*3/uL 1.00-4.00 Lymphocytes/100 WBC Auto (Bl d)on 01-25-2024 Lymphocytes/100 WBC (Bld) 31.8 % MCH Auto (RBC) [Entitic mass ]on 01-25-2024 MCH (RBC) [Entitic mass] 32.2 pg 26.0-34.0 MCHC Auto (RBC) [Mass/Vol]on 01-25-2024 MCHC (RBC) [Mass/Vol] 34.1 g/dL 30.5-36.0 MCV Auto (RBC) [Entitic vol] on 01-25-2024 MCV (RBC) [Entitic vol] 94.3 fL 80.0-100.0 Monocytes Auto (Bld) [#/Vol] on 01-25-2024 Monocytes (Bld) [#/Vol] 0.60 10*3/uL <0.87 Monocytes/100 WBC Auto (Bld) on 01-25-2024 Monocytes/100 WBC (Bld) 8.8 % Neutrophils Auto (Bld) [#/Vo l]on 01-25-2024 Neutrophils (Bld) [#/Vol] 3.53 10*3/uL 1.45-7.50 Neutrophils/100 WBC Auto (Bl d)on 01-25-2024 Neutrophils/100 WBC (Bld) 51.9 % No Panel Informationon 01-24 Estimated GFR (CKD-EPI) 91 mL/min/1.73m??? >=60 Comment on above: Estimated Glomerular Filtration Rate [...] GFR. Prostate Specific Antigen 0.15 ng/mL <2.60 Comment on above: Total PSA test metho dology used is the Electrochemiluminescence Immunoassay by [employer]. Total PSA values by differing methodologies cannot be interchanged. Nucleated RBC Auto (Bld) [#/ Vol]on 01-25-2024 Nucleated RBC (Bld) [#/Vol] 10*3/uL <0.01 Nucleated erythrocytes [Pres ence] in Blood by Automated counton 01-25-2024 Nucleated RBC Auto Ql (Bld) 0.0 /100{WBC} PSA SerPl-mCncon 01-25-2024 Prostate specific Ag [Mass/Vol] 0.15 ng/mL Normal <2.60 [facility] Comment on above: Order Comment: Speci men Type: BLOOD SPECIMEN Order[facility] Address: [address] [place] [address] Result Comment: Tota l PSA test methodology used is the Electrochemiluminescence Immunoassay by [employer]. Total PSA values by differing methodologies cannot be interchanged. Performed By: #### 2 857-1 #### [facility] CLIA [id number] [address] [place] [address] [place] [address] [place] Platelet mean volume Auto (B ld) [Entitic vol]on 01-25-2024 Platelet mean volume (Bld) [Entitic vol] 10.3 fL 9.0-12.7 Platelets Auto (Bld) [#/Vol] on 01-25-2024 Platelets (Bld) [#/Vol] 184 10*3/uL 150-400 Protein [Mass/volume] in Ser um or Plasmaon 01-25-2024 Protein [Mass/Vol] 6.6 g/dL 6.3-8.0 [facility] RBC Auto (Bld) [#/Vol]on RBC (Bld) [#/Vol] 3.67 10*6/uL Low 4.20-6.00 [facility] Serum or plasma anion gap de terminationon 01-25-2024 Anion gap [Moles/Vol] 9 mmol/L 8-15 Consultation Noteon 11-07-19 24 Consultation Note [id number] Beulah Rogel [facility] CNOVSPon 11-02-2023 CNOVSP Visit (SP) Office (H EMASA) PABLO FELIX ([id number]) 1945 M Date Time Provider Department 11/02/23 9:30 AM CHRISTO HOWARD During your visit today, we recorded the following information about you: Temperature Pulse Respiration Blood pressure 97.8 degrees 56/minute 16/minute 123/44 Weight Height 92.9 kg 1.676 m Christo Howard APRN.[employer] 11/03/2023 11:11 AM Signed PATIENT NAME: Pablo Felix DATE: 11/02/2023 PRIMARY CARE PHYSICIAN: Dr. Jamar Fall OTHER PHYSICIANS: Dr. Anthony Scruggs, Dr. Khan, [facility] Cardiology Portions of this encounter [...] mg 24 hr tablet Take by mouth. 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 Left base margin positive for neoplasm. Seminal vesicles with no diagnostic abnormality. 2 resected lymph nodes negative for neoplasm. LABS: Hem (more content not included)... Normal [facility] Basophils Auto (Bld) [#/Vol] on 10-30-2023 Basophils (Bld) [#/Vol] 0.04 10*3/uL <0.11 Basophils/100 WBC Auto (Bld) on 10-30-2023 Basophils/100 WBC (Bld) 0.5 % Blood manual differential co mment interpretation narrativeon 10-30-2023 Manual differential comment [place] (Bld) [Interp] Auto CBC W Auto Differential pane l (Bld)on 10-30-2023 Basophils (Bld) [#/Vol] 0.04 10*3/uL Normal <0.11 [facility] Comment on above: Order Comment: Speci men Type: BLOOD SPECIMEN Order[facility] Facility[facility] Address: [address] [place] [address] Performed By: #### 5 7021-8 #### [facility] CLIA [id number] [address] [place] [address] 05734 Basophils/100 WBC (Bld) 0.5 % Normal [facility] Comment on above: Order Comment: Speci men Type: BLOOD SPECIMEN Ordering Facility[facility] Address: [address] [place] [address] Performed By: #### 5 7021-8 #### [facility] CLIA [id number] [address] [place] [address] 25885 Differential cell count method Nom (Bld) Auto Normal [facility] Comment on above: Order Comment: Speci men Type: BLOOD SPECIMEN Ordering Facility[facility] Address: [address] [place] [address] Performed By: #### 5 7021-8 #### [facility] CLIA [id number] [address] [place] [address] 39090 Eosinophils (Bld) [#/Vol] 0.35 10*3/uL Normal <0.46 [facility] Comment on above: Order Comment: Speci men Type: BLOOD SPECIMEN Order[facility] Facility[facility] Address: [address] [place] [address] Performed By: #### 5 7021-8 #### [facility] CLIA [id number] [address] [place] [address] 99515 Eosinophils/100 WBC (Bld) 4.3 % Normal [facility] Comment on above: Order Comment: Speci men Type: BLOOD SPECIMEN Ordering Facility[facility] Address: [address] [place] [address] Performed By: #### 5 7021-8 #### [facility] CLIA [id number] [address] [place] [address] 14507 Erythrocyte distribution width (RBC) [Ratio] 12.8 % Normal 11.5-15.0 [facility] Comment on above: Order Comment: Speci men Type: BLOOD SPECIMEN Ordering Facility[facility] Address: [address] [place] [address] Performed By: #### 5 7021-8 #### [facility] CLIA [id number] [address] [place] [address] 18246 Hematocrit (Bld) [Volume fraction] 35.8 % Low 39.0-51.0 [facility] Comment on above: Order Comment: Speci men Type: BLOOD SPECIMEN Order[facility] Facility[facility] Address: [address] [place] [address] Performed By: #### 5 7021-8 #### [facility] CLIA [id number] [address] [place] [address] 27619 Hemoglobin (Bld) [Mass/Vol] 12.2 g/dL Low 13.0-17.0 [facility] Comment on above: Order Comment: Speci men Type: BLOOD SPECIMEN Ordering Facility[facility] Address: [address] [place] [address] Performed By: #### 5 7021-8 #### [facility] CLIA [id number] [address] [place] [address] 37107 Immature granulocytes (Bld) [#/Vol] 0.04 10*3/uL Normal <0.10 [facility] Comment on above: Order Comment: Speci men Type: BLOOD SPECIMEN Ordering Facility[facility] Address: [address] [place] [address] Performed By: #### 5 7021-8 #### [facility] CLIA [id number] [address] [place] [address] 70625 Immature granulocytes/100 WBC (Bld) 0.5 % Normal [facility] Comment on above: Order Comment: Speci men Type: BLOOD SPECIMEN Ordering Facility[facility] Address: [address] [place] [address] Performed By: #### 5 7021-8 #### [facility] CLIA [id number] [address] [place] [address] 67397 Lymphocytes (Bld) [#/Vol] 1.36 10*3/uL Normal 1.00-4.00 [facility] Comment on above: Order Comment: Speci men Type: BLOOD SPECIMEN Ordering Facility[facility] Address: [address] [place] [address] Performed By: #### 5 7021-8 #### [facility] CLIA [id number] [address] [place] [address] 81191 Lymphocytes/100 WBC (Bld) 16.6 % Normal [facility] Comment on above: Order Comment: Speci men Type: BLOOD SPECIMEN Ordering Facility[facility] Address: [address] [place] [address] Performed By: #### 5 7021-8 #### [facility] CLIA [id number] [address] [place] [address] 24416 MCH (RBC) [Entitic mass] 31.3 pg Normal 26.0-34.0 [facility] Comment on above: Order Comment: Speci men Type: BLOOD SPECIMEN Ordering Facility[facility] Address: [address] [place] [address] 25326 Performed By: #### 5 7021-8 #### [facility] CLIA [id number] [address] [place] [address] 83797 MCHC (RBC) [Mass/Vol] 34.1 g/dL Normal 30.5-36.0 [facility] Comment on above: Order Comment: Speci men Type: BLOOD SPECIMEN Ordering Facility: [facility] Address: [address] [place] [address] Performed By: #### 5 7021-8 #### [facility] CLIA [id number] [address] [place] [id number] MCV (RBC) [Entitic vol] 91.8 fL Normal 80.0-100.0 [facility] Comment on above: Order Comment: Speci men Type: BLOOD SPECIMEN Ordering Facility: [facility] Address: [address] [place] [address] Performed By: #### 5 7021-8 #### [facility] CLIA [id number] [address] [place] [address]18 Monocytes (Bld) [#/Vol] 0.62 10*3/uL Normal <0.87 [facility] Comment on above: Order Comment: Speci men Type: BLOOD SPECIMEN Ordering Facility: [facility] Address: [address] [place] [address] Performed By: #### 5 7021-8 #### [facility] CLIA [id number] [address] [place] [address] 89112 Monocytes/100 WBC (Bld) 7.6 % Normal [facility] Comment on above: Order Comment: Speci men Type: BLOOD SPECIMEN Ordering Facility: [facility] Address: [address] [place] [address] Performed By: #### 5 7021-8 #### [facility] CLIA [id number] [address] [place] [address] Neutrophils (Bld) [#/Vol] 5.78 10*3/uL Normal 1.45-7.50 [facility] Comment on above: Order Comment: Speci men Type: BLOOD SPECIMEN Ordering Facility: [facility] Address: [address] [place] [address] Performed By: #### 5 7021-8 #### [facility] CLIA [id number] [address] [place] [address] 79025 Neutrophils/100 WBC (Bld) 70.5 % Normal [facility] Comment on above: Order Comment: Speci men Type: BLOOD SPECIMEN Ordering Facility: [facility] Address: [address] [place] [address] Performed By: #### 5 7021-8 #### [facility] CLIA [id number] [address] [place] [address] 18944 Nucleated RBC (Bld) [#/Vol] 10*3/uL Normal <0.01 [facility] Comment on above: Order Comment: Speci men Type: BLOOD SPECIMEN Ordering Facility: [facility] Address: [address] [place] [address] Performed By: #### 5 7021-8 #### [facility] CLIA [id number] [address] [place] [address] 99620 Nucleated RBC/100 WBC (Bld) [Ratio] 0.0 /100 WBC Normal [facility] Comment on above: Order Comment: Speci men Type: BLOOD SPECIMEN Ordering Facility: [facility] Address: [address] [place] [address] Performed By: #### 5 7021-8 #### [facility] CLIA [id number] [address] [place] [address] 06118 Platelet mean volume (Bld) [Entitic vol] 9.5 fL Normal 9.0-12.7 [facility] Comment on above: Order Comment: Speci men Type: BLOOD SPECIMEN Ordering Facility: [facility] Address: [address] [place], [place] [address] Performed By: #### 5 7021-8 #### [facility] CLIA [id number] [address] [place] [address] 74522 Platelets (Bld) [#/Vol] 192 10*3/uL Normal 150-400 [facility] Comment on above: Order Comment: Speci men Type: BLOOD SPECIMEN Ordering Facility: [facility] Address: [address] [place] [address] Performed By: #### 5 7021-8 #### [facility] CLIA [id number] [address] [place] [address] 55672 RBC (Bld) [#/Vol] 3.90 10*6/uL Low 4.20-6.00 [facility] Comment on above: Order Comment: Speci men Type: BLOOD SPECIMEN Ordering Facility: [facility] Address: [address] [place] [address] Performed By: #### 5 7021-8 #### [facility] CLIA [id number] [address] [place] [address] 86088 WBC (Bld) [#/Vol] 8.19 10*3/uL Normal 3.70-11.00 [facility] Comment on above: Order Comment: Speci men Type: BLOOD SPECIMEN Ordering Facility: [facility] Address: [address] [place] [address] 99930 Performed By: #### 5 7021-8 #### [facility] CLIA [id number] [address] [place] [address] 53232 Comprehensive metabolic 2000 panelon 10-30-2023 Albumin [Mass/Vol] 4.1 g/dL Normal 3.9-4.9 [facility] Comment on above: Order Comment: Speci men Type: BLOOD SPECIMEN Ordering Facility: [facility] Address: [address] [place] [address] Performed By: #### 5 7021-8 #### [facility] CLIA [id number] [address] [place] [address] ALP [Catalytic activity/Vol] 75 U/L Normal 38-113 [facility] Comment on above: Order Comment: Speci men Type: BLOOD SPECIMEN Ordering Facility: [facility] Address: [address] [id number] Performed By: #### 5 7021-8 #### [facility] CLIA [id number] [address] [place] [address] ALT [Catalytic activity/Vol] 16 U/L Normal 10-54 [facility] Comment on above: Order Comment: Speci men Type: BLOOD SPECIMEN Ordering Facility: [facility] Address: [address] [place] [address] Performed By: #### 5 7021-8 #### [facility] CLIA [id number] [address] [place] [address] 75683 Anion gap [Moles/Vol] 13 mmol/L Normal 9-18 [facility] Comment on above: Order Comment: Speci men Type: BLOOD SPECIMEN Ordering Facility: [facility] Address: [address] [place] [address] Performed By: #### 5 7021-8 #### [facility] CLIA [id number] [address] [place] [address] 94083 AST [Catalytic activity/Vol] 16 U/L Normal 14-40 [facility] Comment on above: Order Comment: Speci men Type: BLOOD SPECIMEN Ordering Facility: [facility] Address: [address] [place] [address] Performed By: #### 5 7021-8 #### [facility] CLIA [id number] [address] [place] [address] 69407 Bilirubin [Mass/Vol] 0.7 mg/dL Normal 0.2-1.3 [facility] Comment on above: Order Comment: Speci men Type: BLOOD SPECIMEN Ordering Facility: [facility] Address: [address] [place] [address] Performed By: #### 5 7021-8 #### [facility] CLIA [id number] [address] [place] [address] Calcium [Mass/Vol] 9.8 mg/dL Normal 8.5-10.2 [facility] Comment on above: Order Comment: Speci men Type: BLOOD SPECIMEN Ordering Facility: [facility] Address: [address] [place] [address]86 Performed By: #### 5 7021-8 #### [facility] CLIA [id number] [address] [place] [address] 69795 Chloride [Moles/Vol] 103 mmol/L Normal 97-105 [facility] Comment on above: Order Comment: Speci men Type: BLOOD SPECIMEN Ordering Facility: [facility] Address: [address] [place], [place] [address] Performed By: #### 5 7021-8 #### [facility] CLIA [id number] [address] [place] [address] 41892 CO2 [Moles/Vol] 24 mmol/L Normal 22-30 [facility] Comment on above: Order Comment: Speci men Type: BLOOD SPECIMEN Ordering Facility: [facility] Address: [address] [place] [address] 21856 Performed By: #### 5 7021-8 #### [facility] CLIA [id number] [address] [place] [address] 47953 Creatinine [Mass/Vol] 0.88 mg/dL Normal 0.73-1.22 [facility] Comment on above: Order Comment: Speci men Type: BLOOD SPECIMEN Ordering Facility: [facility] Address: [address] [place] [address] Performed By: #### 5 7021-8 #### [facility] CLIA [id number] [address] [place] [address] 97946 Creatinine and Glomerular filtration rate.predicted panel (S/P/Bld) 89 mL/min/1.73m??? Normal >=60 [facility] Comment on above: Order Comment: Speci men Type: BLOOD SPECIMEN Ordering Facility: [facility] Address: [address] [place] [address] Result Comment: Renae mated Glomerular Filtration Rate [...] GFR. Performed By: #### 5 7021-8 #### [facility] CLIA [id number] [address] [place] [address] 44864 Glucose [Mass/Vol] 128 mg/dL High 74-99 [facility] Comment on above: Order Comment: Nicanor camilo Type: BLOOD SPECIMEN Ordering Facility: [facility] Address: [address] [place] [address] 21229 Result Comment: The [place] Diabetes Association (ADA) provides guidance for cutoff [...] Standards of Medical Care in Diabetes 2016, [place] [employer]. Diabetes Care. 2016.39(Suppl 1). Performed By: #### 5 7021-8 #### [facility] CLIA [id number] [address] [place] [address]3840 Potassium [Moles/Vol] 4.8 mmol/L Normal 3.7-5.1 [facility] Comment on above: Order Comment: Nicanor camilo Type: BLOOD SPECIMEN Ordering Facility: [facility] Address: [address] [place] [address] Performed By: #### 5 7021-8 #### [facility] CLIA [id number] [address] [place] [address] Protein [Mass/Vol] 6.5 g/dL Normal 6.3-8.0 [facility] Comment on above: Order Comment: Speci men Type: BLOOD SPECIMEN Ordering Facility: [facility] Address: [address] [place] [address] Performed By: #### 5 7021-8 #### [facility] CLIA [id number] [address] [place] [address] Sodium [Moles/Vol] 140 mmol/L Normal 136-144 [facility] Comment on above: Order Comment: Speci men Type: BLOOD SPECIMEN Ordering Facility: [facility] Address: [address] [place] [address] 18338 Performed By: #### 5 7021-8 #### [facility] CLIA [id number] [address] [place] [address] 05709 Urea nitrogen [Mass/Vol] 18 mg/dL Normal 9-24 [facility] Comment on above: Order Comment: Speci men Type: BLOOD SPECIMEN Ordering Facility: [facility] Address: [address] [place] [address] 62664 Performed By: #### 5 7021-8 #### [facility] CLIA [id number] [address] [place] [address] 44262 Eosinophils/100 WBC Auto (Bl d)on 10-30-2023 Eosinophils/100 WBC (Bld) 4.3 % Erythrocyte distribution wid th Auto (RBC) [Ratio]on 10-30-2023 Erythrocyte distribution width (RBC) [Ratio] 12.8 % 11.5-15.0 Hematocrit Auto (Bld) [Volum e fraction]on 10-30-2023 Hematocrit (Bld) [Volume fraction] 35.8 % 39.0-51.0 Hemoglobin [Mass/volume] in Bloodon 10-30-2023 Hemoglobin (Bld) [Mass/Vol] 12.2 g/dL 13.0-17.0 Laboratory - Chemistry and C hemistry - challengeon 10-30-2023 Albumin [Mass/Vol] 4.1 g/dL 3.9-4.9 [facility] ALP [Catalytic activity/Vol] 75 U/L 38-113 ALT [Catalytic activity/Vol] 16 U/L 10-54 AST [Catalytic activity/Vol] 16 U/L 14-40 Bilirubin [Mass/Vol] 0.7 mg/dL 0.2-1.3 Calcium [Mass/Vol] 9.8 mg/dL 8.5-10.2 [facility] Chloride [Moles/Vol] 103 mmol/L 97-105 CO2 [Moles/Vol] 24 mmol/L 22-30 Creatinine [Mass/Vol] 0.88 mg/dL 0.73-1.22 Glucose [Mass/Vol] 128 mg/dL 74-99 [facility] Comment on above: The [place] Diabete s Association (ADA) provides guidance for [...] Standards of Medical Care in Diabetes 2016, [place] [employer]. Diabetes Care. 2016.39(Suppl 1). Potassium [Moles/Vol] 4.8 mmol/L 3.7-5.1 Sodium [Moles/Vol] 140 mmol/L 136-144 [facility] Urea nitrogen [Mass/Vol] 18 mg/dL 9-24 Laboratory - Hematology and Cell countson 10-30-2023 Eosinophils (Bld) [#/Vol] 0.35 10*3/uL <0.46 Immature granulocytes (Bld) [#/Vol] 0.04 10*3/uL <0.10 Immature granulocytes/100 WBC (Bld) 0.5 % Leukocytes [#/volume] correc jomar for nucleated erythrocytes in Blood by Automated counon 10-30-2023 WBC corrected for nucl RBC Auto (Bld) [#/Vol] 8.19 k/uL 3.70-11.00 Lymphocytes Auto (Bld) [#/Vo l]on 10-30-2023 Lymphocytes (Bld) [#/Vol] 1.36 10*3/uL 1.00-4.00 Lymphocytes/100 WBC Auto (Bl d)on 10-30-2023 Lymphocytes/100 WBC (Bld) 16.6 % MCH Auto (RBC) [Entitic mass ]on 10-30-2023 MCH (RBC) [Entitic mass] 31.3 pg 26.0-34.0 MCHC Auto (RBC) [Mass/Vol]on 10-30-2023 MCHC (RBC) [Mass/Vol] 34.1 g/dL 30.5-36.0 MCV Auto (RBC) [Entitic vol] on 10-30-2023 MCV (RBC) [Entitic vol] 91.8 fL 80.0-100.0 Monocytes Auto (Bld) [#/Vol] on 10-30-2023 Monocytes (Bld) [#/Vol] 0.62 10*3/uL <0.87 Monocytes/100 WBC Auto (Bld) on 10-30-2023 Monocytes/100 WBC (Bld) 7.6 % Neutrophils Auto (Bld) [#/Vo l]on 10-30-2023 Neutrophils (Bld) [#/Vol] 5.78 10*3/uL 1.45-7.50 Neutrophils/100 WBC Auto (Bl d)on 10-30-2023 Neutrophils/100 WBC (Bld) 70.5 % No Panel Informationon 10-29 Estimated GFR (CKD-EPI) 89 mL/min/1.73m??? >=60 Comment on above: Estimated Glomerular Filtration Rate [...] GFR. Prostate Specific Antigen 0.16 ng/mL <2.60 Comment on above: Total PSA test metho [...] 10-30-2023 Nucleated RBC (Bld) [#/Vol] 10*3/uL <0.01 Nucleated erythrocytes [Pres ence] in Blood by Automated counton 10-30-2023 Nucleated RBC Auto Ql (Bld) 0.0 /100{WBC} PSA SerPl-mCncon 10-30-2023 Prostate specific Ag [Mass/Vol] 0.16 ng/mL Normal <2.60 [facility] Comment on above: Order Comment: Speci men Type: BLOOD SPECIMEN Ordering Facility: [facility] Address: [address] [place] [address] 11047 Result Comment: Tota l PSA test methodology used is the Electrochemiluminescence Immunoassay by [employer]. Total PSA values by differing methodologies cannot be interchanged. Performed By: #### 5 7021-8 #### [facility] CLIA [id number] [address] [place] [address] 99711 Platelet mean volume Auto (B ld) [Entitic vol]on 10-30-2023 Platelet mean volume (Bld) [Entitic vol] 9.5 fL 9.0-12.7 Platelets Auto (Bld) [#/Vol] on 10-30-2023 Platelets (Bld) [#/Vol] 192 10*3/uL 150-400 Protein [Mass/volume] in Ser um or Plasmaon 10-30-2023 Protein [Mass/Vol] 6.5 g/dL 6.3-8.0 [facility] RBC Auto (Bld) [#/Vol]on RBC (Bld) [#/Vol] 3.90 10*6/uL 4.20-6.00 [facility] Serum or plasma anion gap de terminationon 10-30-2023 Anion gap [Moles/Vol] 13 mmol/L 9-18 Testost SerPl-mCncon 024 Testosterone [Mass/Vol] 78 ng/dL Low 193-824 [facility] Comment on above: Order Comment: Speci men Type: BLOOD SPECIMEN Ordering Facility: [facility] Address: [address] [place] [address] Result Comment: A te stosterone level in the 193-320 ng/dL range with associated clinical symptoms is considered low and may indicate hypogonadism (from NEJ 2010 363:123-135). Results >320 ng/dL are considered normal. Result rechecked. Performed By: #### 2 986-8 #### [facility] CLIA [id number] [address] [place] [address] [place] [address] [place] Patient Educationon 10-20-19 [...] under a microscope. This is called the Kimberton score and the total score can range from 6?10, indicating how likely it is that the cancer will spread (metastasize) to other parts of the body. The higher the score, the greater the likelihood that the cancer will spread. ? Lucrecia 6 or lower: This indicates that the cancer cells look similar to normal prostate cells (well differentiated). ? Kimberton 7: This indicates that the cancer cells look somewhat similar to normal prostate cells (moderately differentiated). ? Kimberton 8, 9, or 10: This indicates that [...] external be (more content not included)... Normal [facility] Urology Office/Clinic Noteon 10-20-2023 Urology [...] Contact Information KAEL JAMES, Anthony Lee, URL [address] [place] [address]- Additional Instructions: 6 mos w/ PSA and [...] 1 tab(s), Oral, Daily ipratropium Nasal 0.06% [place] metformin 1000 mg oral tablet, Oral, BID metoprolol 25 mg ER Tab, 25 mg= 1 tab(s), Oral, BID Vitamin D3 Xtandi 80 mg oral tablet, Oral, Daily Allergies penicillin G benzathine (Unknown) Social History Alcohol Current, 1-2 times per year, 02/04/2019 Tobacco Never (less than 100 in lifetime) Tobacco Use:. Never Smokeless Tobacco Use:. (more content not included)... Normal [facility] Comment on above: Result Comment: Elec tronically Signed By: Anthony SCRUGGS MD\.br\Date and Time Signed: 10/20/23 09:57 EDT\.br\Electronically Co-Signed By: Olamide Ureña.br\Date and Time Co-Signed: 10/20/23 09:55 EDT Lab Reportson 10-10-2023 Lab Reports [id number]#[id number] [facility] RAD - MISCon 10-10-2023 RAD - MISC [id number]#1.00TIFF [facility] No Panel Informationon 10-08 Prostate Specific Antigen Total <0.13 ng/mL <=4.00 No Panel Informationon 08-28 [facility] Type of biopsy: schmidt ential Informed [...] of lidocaine used: 0.5 cc [facility] Consultation Noteon 08-04-19 24 Consultation Note [id number]#[id number] Normal [facility] Office Visiton 06-22-2023 Follow-up visit [id number] Pablo Felix 1945 M Date Provider Department Center 06/22/2023 [facility] Armando Kc Family History Problem Relation Age of Onset Coronary artery disease Father Family Status - Relation Status Age at Father Level of Service:61373 NC OFFICE/OUTPATIENT ESTABLISHED MOD MDM 30-39 MIN Normal [facility] RAD - MISCon 04-24-2023 RAD - MISC [id number]#1.00TIFF Normal [facility] GLYCOHEMOGLOBIN A1Con 2022 ADA RECOMMENDATION SEE BELOW Normal [facility] Comment on above: Result Comment: ADA RECOMMENDED LIMIT 4.0 - 6.0 ADA THERAPEUTIC TARGET < 7.0 ACTION SUGGESTED > 7.0 Performed By: #### D ATA1C #### [facility] [address] [address] [address] Bharati Aguiar Glucose [Mass/Vol] 131 mg/dL Normal [facility] Comment on above: Performed By: #### D ATA1C #### [facility] [address] [address] [address] Bharati Aguiar HbA1c (Bld) [Mass fraction] 6.2 % Normal 4.5-6.2 [facility] Comment on above: Performed By: #### D ATA1C #### [facility] [address] [address] [address] Bharati Aguiar XR CSPINE OBL FLEX_EXTon [...] by: CYNTHIA TORRES Date: 2022-07-21 15:52 Normal [facility] GLYCOHEMOGLOBIN A1Con 2021 ADA RECOMMENDATION SEE BELOW Normal [facility] Comment on above: Result Comment: ADA RECOMMENDED LIMIT 4.0 - 6.0 ADA THERAPEUTIC TARGET < 7.0 ACTION SUGGESTED > 7.0 Performed By: #### D ATA1C #### [facility] [address] [address] [address] Bharati Aguiar Glucose [Mass/Vol] 134 mg/dL Normal [facility] Comment on above: Performed By: #### D ATA1C #### [facility] [address] [address] [address] Bharati Aguiar HbA1c (Bld) [Mass fraction] 6.3 % Critically high 4.5-6.2 [facility] Comment on above: Performed By: #### D ATA1C #### [facility] [address] [address] [address] Bharati Aguiar ECHOCARDIO M/2D COMPLETEon 1 ECHOCARDIO M/2D COMPLETE Patient: PABLO FELIX Exam Date: 04/27/2022 : 1945 Gender:M Ordering : LORA ENGLISH Admission #: [id number] Family : DR JAMAR FALL DSony Order #: [id number] CLICK HERE TO VIEW EXAM ECHOCARDIOGRAM REPORT [...] Carreon M.D. on 04/28/2022 at 19:09 Normal [facility] GLYCOHEMOGLOBIN A1Con 2021 ADA RECOMMENDATION SEE BELOW Normal [facility] Comment on above: Result Comment: ADA RECOMMENDED LIMIT 4.0 - 6.0 ADA THERAPEUTIC TARGET < 7.0 ACTION SUGGESTED > 7.0 Performed By: #### D ATA1C ####[facility] [address] [address]DrJunior Aguiar Glucose [Mass/Vol] 137 mg/dL Normal [facility] Comment on above: Performed By: #### D ATA1C ####[facility] [address] [place], [place] [address]AqJunior Aguiar HbA1c (Bld) [Mass fraction] 6.4 % Critically high 4.5-6.2 [facility] Comment on above: Performed By: #### D ATA1C ####[facility] [address] [id number]. Bharati Aguiar NM BONE SC WH BODYon [...] it was not obviously included in the wvvyv-el-ztcz of the recent CT. There are foci [...] DE JESUS Date: 2021-11-06 12:45 Normal [facility] CT CHEST W CONon 11-05-2021 [...] LUIZ UMANA Date: 2021-11-05 14:08 Normal [facility] PROF 14(COMP METB)on 022 Albumin [Mass/Vol] 3.6 g/dL Normal 3.4-5.0 [facility] Comment on above: Performed By: #### C MP #### [facility] [address] [place] [address] Dr. Bharati Aguiar Albumin/Globulin [Mass ratio] 1.1 {ratio} Normal [facility] Comment on above: Performed By: #### C MP #### [facility] [address] [place] [address] Dr. Bharati Aguiar ALP [Catalytic activity/Vol] 89 U/L Normal 46-116 [facility] Comment on above: Performed By: #### C MP #### [facility] [address] [place] [address] Dr. Bharati Aguiar ALT [Catalytic activity/Vol] 33 U/L Normal 16-63 [facility] Comment on above: Performed By: #### C MP #### [facility] [address] [place] [address] Dr. Bharati Aguiar Anion gap [Moles/Vol] 12.1 mmol/L Normal [facility] Comment on above: Performed By: #### C MP #### [facility] [address] [address] [address] Bharati Aguiar AST [Catalytic activity/Vol] 19 U/L Normal 15-37 [facility] Comment on above: Performed By: #### C MP #### [facility] [address] [address] [address] Bharati Aguiar Bilirubin [Mass/Vol] 0.9 mg/dL Normal 0.2-1.3 [facility] Comment on above: Performed By: #### C MP #### [facility] [address] [address] [address] Bharati Aguiar Calcium [Mass/Vol] 8.8 mg/dL Normal 8.5-10.1 [facility] Comment on above: Performed By: #### C MP #### [facility] [address] [address] [address] Bharati Aguiar Chloride [Moles/Vol] 103 mmol/L Normal 98-107 [facility] Comment on above: Performed By: #### C MP #### [facility] [address] [address] [address] Bharati Aguiar CO2 [Moles/Vol] 28.6 mmol/L Normal 22.0-30.[address] [facility] Comment on above: Performed By: #### C MP #### [facility] [address] [address] [address] Bharati Aguiar Creatinine [Mass/Vol] 0.85 mg/dL Normal 0.66-1.25 [facility] Comment on above: Performed By: #### C MP #### [facility] [address] [address] [address] Bharati Aguiar EGFR-AF CITIZEN OF [place] >60 Normal >=[address] [facility] Comment on above: Performed By: #### C MP #### [facility] [address] [address] [address] Bharati Aguiar EGFR-NON AF CITIZEN OF [place] >60 Normal >=60 [facility] Comment on above: Performed By: #### C MP #### [facility] [address] [address] [address] Bharati Aguiar Globulin (S) [Mass/Vol] 3.4 g/dL Normal [facility] Comment on above: Performed By: #### C MP #### [facility] [address] [address] [address] Bharati Aguiar Glucose [Mass/Vol] 127 mg/dL Critically high 74-106 [facility] Comment on above: Performed By: #### C MP #### [facility] [address] [address] [address] Bharati Aguiar Potassium [Moles/Vol] 4.7 mmol/L Normal 3.4-5.0 [facility] Comment on above: Performed By: #### C MP #### [facility] [address] [place] [address] Dr. Bharati Aguiar Protein [Mass/Vol] 7.0 g/dL Normal 6.1-8.2 [facility] Comment on above: Performed By: #### C MP #### [facility] [address] [place] [address] Dr. Bharati Aguiar Sodium [Moles/Vol] 139 mmol/L Normal 137-145 [facility] Comment on above: Performed By: #### C MP #### [facility] [address] [place] [address] Dr. Bharati Aguiar Urea nitrogen [Mass/Vol] 18.0 mg/dL Normal 7.0-18.0 [facility] Comment on above: Performed By: #### C MP #### [facility] [address] [place] [address] Dr. Bharati Aguiar Urea nitrogen/Creatinin e [Mass ratio] 21.2 mg/mg [facility] Comment on above: Performed By: #### C MP #### [facility] [address] [place] [address] Dr. Bharati Aguiar Vital Signs Date Time Vital Sign Value Performing Clinician Facility 08-08-2024 09:07-0500 Body height 167.6 cm Christo Howard APRN.[employer] Work Phone: [facility] 08-08-2024 09:07-0500 Body mass index (BMI) [Ratio] 33.82 kg/m2 Christo Howard AVIATION MEDICINE SPECIALIST.[employer] Work Phone: [facility] 08-08-2024 09:07-0500 Body temperature 97.9 [degF] Christo Howard AVIATION MEDICINE SPECIALIST.[employer] Work Phone: [facility] 08-08-2024 09:07-0500 Body weight 95 kg Christo Howard AVIATION MEDICINE SPECIALIST.[employer] Work Phone: [facility] 08-08-2024 09:07-0500 Diastolic blood pressure 56 mm[Hg] Christo Howard AVIATION MEDICINE SPECIALIST.[employer] Work Phone: [facility] 08-08-2024 09:07-0500 Heart rate 57 /min Christo Howard APRN.[employer] Work Phone: [facility] 08-08-2024 09:07-0500 Respiratory rate 16 /min Christo Howard APRN.[employer] Work Phone: [facility] 08-08-2024 09:07-0500 SaO2% (BldA) [Mass fraction] 99 % Christo Howard APRN.[employer] Work Phone: [facility] 08-08-2024 09:07-0500 Systolic blood pressure 149 mm[Hg] Christo Howard AVIATION MEDICINE SPECIALIST.[employer] Work Phone: [facility] 05-09-2024 08:52-0400 Body mass index (BMI) [Ratio] 32.79 kg/m2 Marco A Esqueda MD Work Phone: [facility] 05-09-2024 08:52-0400 Body temperature 97.3 [degF] Marco A Esqueda MD Work Phone: [facility] 05-09-2024 08:52-0400 Body weight 92.1 kg Marco A Esqueda MD Work Phone: [facility] 05-09-2024 08:52-0400 Diastolic blood pressure 62 mm[Hg] Marco A Esqueda MD Work Phone: [facility] 05-09-2024 08:52-0400 Heart rate 62 /min Marco A Esqueda MD Work Phone: [facility] 05-09-2024 08:52-0400 Respiratory rate 16 /min Marco A Esqueda MD Work Phone: [facility] 05-09-2024 08:52-0400 SaO2% (BldA) [Mass fraction] 99 % Marco A Esqueda MD Work Phone: [facility] 05-09-2024 08:52-0400 Systolic blood pressure 141 mm[Hg] Marco A Esqueda MD Work Phone: [facility] 04-19-2024 08:15-0400 Blood Pressure Location Anthonycindy SCRUGGS [facility] 04-19-2024 08:15-0400 Body temperature 98.6 [degF] Anthony SCRUGGS [facility] 04-19-2024 08:15-0400 Diastolic blood pressure 69 mm[Hg] Anthony SCRUGGS [facility] 04-19-2024 08:15-0400 Heart rate 64 /min Anthony SCRUGGS [facility] 04-19-2024 08:15-0400 Respiratory rate 17 /min Anthony SCRUGGS [facility] 04-19-2024 08:15-0400 Systolic blood pressure 129 mm[Hg] Anthony SCRUGGS [facility] 03-26-2024 08:37-0400 Body height 168.91 cm [facility] 03-26-2024 08:37-0400 Body mass index (BMI) [Ratio] 33 kg/m2 03-26-2024 08:37-0400 Body weight 94.12 kg [facility] 03-26-2024 08:37-0400 Diastolic blood pressure 80 mm[Hg] 03-26-2024 08:37-0400 Heart rate 52 /min [facility] 03-26-2024 08:37-0400 Respiratory rate 12 /min [facility] 03-26-2024 08:37-0400 Systolic blood pressure 130 mm[Hg] 02-02-2024 11:06-0400 Body height 167.6 cm Lynne Gross AVIATION MEDICINE SPECIALIST.[employer] Work Phone: [facility] 02-02-2024 11:06-0400 Body mass index (BMI) [Ratio] 33.36 kg/m2 Lynne Gross AVIATION MEDICINE SPECIALIST.[employer] Work Phone: [facility] 02-02-2024 11:06-0400 Body temperature 97.3 [degF] Lynne Gross AVIATION MEDICINE SPECIALIST.[employer] Work Phone: [facility] 02-02-2024 11:06-0400 Body weight 93.7 kg Lynne Gross AVIATION MEDICINE SPECIALIST.[employer] Work Phone: [facility] 02-02-2024 11:06-0400 Diastolic blood pressure 54 mm[Hg] Lynne Gross AVIATION MEDICINE SPECIALIST.[employer] Work Phone: [facility] 02-02-2024 11:06-0400 Heart rate 52 /min Lynne Gross AVIATION MEDICINE SPECIALIST.[employer] Work Phone: [facility] 02-02-2024 11:06-0400 Respiratory rate 16 /min Lynne Gross AVIATION MEDICINE SPECIALIST.[employer] Work Phone: [facility] 02-02-2024 11:06-0400 SaO2% (BldA) [Mass fraction] 98 % Lynne Gross AVIATION MEDICINE SPECIALIST.[employer] Work Phone: [facility] 02-02-2024 11:06-0400 Systolic blood pressure 137 mm[Hg] Lynne Gross AVIATION MEDICINE SPECIALIST.[employer] Work Phone: [facility] 11-23-2023 08:38-0400 Body height 168.91 cm [facility] 11-23-2023 08:38-0400 Body mass index (BMI) [Ratio] 33.2 kg/m2 11-23-2023 08:38-0400 Body weight 94.8 kg [facility] 11-23-2023 08:38-0400 Diastolic blood pressure 69 mm[Hg] 11-23-2023 08:38-0400 Heart rate 48 /min [facility] 11-23-2023 08:38-0400 Respiratory rate 12 /min [facility] 11-23-2023 08:38-0400 Systolic blood pressure 130 mm[Hg] 11-02-2023 09:14-0400 Body height 167.6 cm Christo Howard APRN.[employer] Work Phone: [facility] 11-02-2023 09:14-0400 Body temperature 97.81 [degF] Christo Howard APRN.[employer] Work Phone: [facility] 11-02-2023 09:14-0400 Body weight 92.9 kg Christo Howard APRN.[employer] Work Phone: [facility] 11-02-2023 09:14-0400 Diastolic blood pressure 44 mm[Hg] Christo Howard APRN.[employer] Work Phone: [facility] 11-02-2023 09:14-0400 Heart rate 56 /min Christo Howard APRN.[employer] Work Phone: [facility] 11-02-2023 09:14-0400 Respiratory rate 16 /min Christo Howard APRN.[employer] Work Phone: [facility] 11-02-2023 09:14-0400 SaO2% (BldA) [Mass fraction] 97 % Christo Howard APRN.[employer] Work Phone: [facility] 11-02-2023 09:14-0400 Systolic blood pressure 123 mm[Hg] Christo Howard APRN.[employer] Work Phone: [facility] 04-05-2024 09:05-0400 Blood Pressure Location Anthony SCRUGGS [facility] 10-20-2023 09:05-0400 Diastolic blood pressure 64 mm[Hg] Anthony SCRUGGS [facility] 10-20-2023 09:05-0400 Heart rate 53 /min Anthony SCRUGGS [facility] 10-20-2023 09:05-0400 Respiratory rate 16 /min Anthony SCRUGGS [facility] 10-20-2023 09:05-0400 Systolic blood pressure 110 mm[Hg] Anthony SCRUGGS [facility] 09-12-2023 14:13-0500 Body height 168.91 cm [facility] 09-12-2023 14:13-0500 Body mass index (BMI) [Ratio] 33.4 kg/m2 09-12-2023 14:13-0500 Body weight 95.42 kg [facility] 09-12-2023 14:13-0500 Diastolic blood pressure 84 mm[Hg] 09-12-2023 14:13-0500 Heart rate 56 /min [facility] 09-12-2023 14:13-0500 Respiratory rate 12 /min [facility] 09-12-2023 14:13-0500 Systolic blood pressure 143 mm[Hg] 08-24-2023 08:30-0500 Body height 168.91 cm Jamar Fall Other [facility] [employer] Other 08-24-2023 08:30-0500 Body mass index (BMI) [Ratio] 34.08 kg/m2 Jamar Ball Other [facility] [employer] [facility] Other 08-24-2023 08:30-0500 Body weight 97.25 kg Jamar Ball Other [employer] Other 08-24-2023 08:30-0500 Diastolic blood pressure 81 mm[Hg] Jamar Ball Other [employer] Other 08-24-2023 08:30-0500 Respiratory rate 12 /min Jamar Ball Other [employer] Other 08-24-2023 08:30-0500 Systolic blood pressure 125 mm[Hg] Jamar Ball Other [employer] Other 05-30-2023 15:00-0500 Body height 168.91 cm Jamar Ball Other [employer] Other 05-30-2023 15:00-0500 Body mass index (BMI) [Ratio] 32.84 kg/m2 Jamar Ball Other [employer] Other 05-30-2023 15:00-0500 Body weight 93.71 kg Jamar Ball Other [employer] Other 05-30-2023 15:00-0500 Diastolic blood pressure 66 mm[Hg] Jamar Ball Other [employer] Other 05-30-2023 15:00-0500 Respiratory rate 12 /min Jamar Ball Other [employer] Other 05-30-2023 15:00-0500 Systolic blood pressure 141 mm[Hg] Jamar Ball Other [employer] Other 05-01-2023 09:45-0400 Body height 168.91 cm Jamar Ball Other [employer] Other 05-01-2023 09:45-0400 Body mass index (BMI) [Ratio] 32.14 kg/m2 Jamar Ball Other [employer] Other 05-01-2023 09:45-0400 Body weight 91.72 kg Jamar Ball Other [employer] Other 05-01-2023 09:45-0400 Diastolic blood pressure 62 mm[Hg] Jamar Ball Other [employer] Other 05-01-2023 09:45-0400 Respiratory rate 12 /min Jamar Ball Other [employer] Other 05-01-2023 09:45-0400 Systolic blood pressure 129 mm[Hg] Jamar Ball Other [employer] Other 04-27-2023 09:23-0400 Diastolic blood pressure 49 mm[Hg] Christo Howard APRN.[employer] Work Phone: [facility] 04-27-2023 09:23-0400 Heart rate 50 /min Christo Howard APRN.[employer] Work Phone: [facility] 04-27-2023 09:23-0400 Systolic blood pressure 141 mm[Hg] Christo Howard APRN.[employer] Work Phone: [facility] 04-27-2023 09:20-0400 Body height 167.6 cm Christo Howard APRN.[employer] Work Phone: [facility] 04-27-2023 09:20-0400 Body temperature 97 [degF] Christo Howard APRN.[employer] Work Phone: [facility] 04-27-2023 09:20-0400 Body weight 92.53 kg Christo Howard APRN.[employer] Work Phone: [facility] 04-27-2023 09:20-0400 Respiratory rate 16 /min Christo Howard APRN.[employer] Work Phone: [facility] 04-27-2023 09:20-0400 SaO2% (BldA) [Mass fraction] 100 % Christo Howard APRN.CNP Work Phone: [facility] 04-17-2023 08:45-0400 Blood Pressure Location Anthony SCRUGGS [facility] 04-17-2023 08:45-0400 Diastolic blood pressure 68 mm[Hg] Anthony SCRUGGS [facility] 04-17-2023 08:45-0400 Heart rate 62 /min Anthony SCRUGGS [facility] 04-17-2023 08:45-0400 Respiratory rate 16 /min Anthony SCRUGGS [facility] 04-17-2023 08:45-0400 Systolic blood pressure 130 mm[Hg] Anthony SCRUGGS [facility] 04-05-2023 13:45-0400 Body height 168.91 cm Jamar Ball Other [employer] Other 04-05-2023 13:45-0400 Body mass index (BMI) [Ratio] 32.46 kg/m2 Jamar Ball Other [employer] Other 04-05-2023 13:45-0400 Body weight 92.63 kg Jamar Ball Other [employer] Other 04-05-2023 13:45-0400 Diastolic blood pressure 67 mm[Hg] Jamar Ball Other [employer] Other 04-05-2023 13:45-0400 Respiratory rate 12 /min Jamar Ball Other [employer] Other 04-05-2023 13:45-0400 Systolic blood pressure 109 mm[Hg] Jamar Ball Other [employer] Other 03-15-2023 08:45-0400 Body height 168.91 cm Jamar Ball Other [employer] Other 03-15-2023 08:45-0400 Body mass index (BMI) [Ratio] 32.81 kg/m2 Jamar Ball Other [employer] Other 03-15-2023 08:45-0400 Body weight 93.62 kg Jamar Ball Other [employer] Other 03-15-2023 08:45-0400 Diastolic blood pressure 69 mm[Hg] Jamar Ball Other [employer] Other 03-15-2023 08:45-0400 Respiratory rate 12 /min Jamar Ball Other [employer] Other 03-15-2023 08:45-0400 Systolic blood pressure 131 mm[Hg] Jamar Ball Other [employer] Other 02-02-2023 09:32-0400 Body height 167.6 cm Marco A Esqueda MD Work Phone: [facility] 02-02-2023 09:32-0400 Body temperature 97.2 [degF] Marco A Esqueda MD Work Phone: [facility] 02-02-2023 09:32-0400 Body weight 96.62 kg Marco A Esqueda MD Work Phone: [facility] 02-02-2023 09:32-0400 Diastolic blood pressure 43 mm[Hg] Marco A Esqueda MD Work Phone: [facility] 02-02-2023 09:32-0400 Heart rate 50 /min Marco A Esqueda MD Work Phone: [facility] 02-02-2023 09:32-0400 Respiratory rate 16 /min Marco A Esqueda MD Work Phone: [facility] 02-02-2023 09:32-0400 SaO2% (BldA) [Mass fraction] 97 % Marco A Esqueda MD Work Phone: [facility] 02-02-2023 09:32-0400 Systolic blood pressure 131 mm[Hg] Marco A Esqueda MD Work Phone: [facility] 11-10-2022 09:30-0400 Body height 167.6 cm Christo oHward AVIATION MEDICINE SPECIALIST.[employer] Work Phone: [facility] 11-10-2022 09:30-0400 Body temperature 97.11 [degF] Christo Howard AVIATION MEDICINE SPECIALIST.[employer] Work Phone: [facility] 11-10-2022 09:30-0400 Body weight 96.44 kg Christo Howard AVIATION MEDICINE SPECIALIST.[employer] Work Phone: [facility] 11-10-2022 09:30-0400 Diastolic blood pressure 68 mm[Hg] Christo Howard AVIATION MEDICINE SPECIALIST.[employer] Work Phone: [facility] 11-10-2022 09:30-0400 Heart rate 54 /min Christo Howard AVIATION MEDICINE SPECIALIST.[employer] Work Phone: [facility] 11-10-2022 09:30-0400 Respiratory rate 16 /min Christo Howard AVIATION MEDICINE SPECIALIST.[employer] Work Phone: [facility] 11-10-2022 09:30-0400 SaO2% (BldA) [Mass fraction] 98 % Chrsito Howard AVIATION MEDICINE SPECIALIST.[employer] Work Phone: [facility] 11-10-2022 09:30-0400 Systolic blood pressure 134 mm[Hg] Christo Howard AVIATION MEDICINE SPECIALIST.[employer] Work Phone: [facility] 09-16-2022 08:30-0500 Body height 168.91 cm Jamar Fall Other [employer] Other 09-16-2022 08:30-0500 Body mass index (BMI) [Ratio] 33.16 kg/m2 Jamar Ball Other [employer] Other 09-16-2022 08:30-0500 Body weight 94.62 kg Jamar Ball Other [employer] Other 09-16-2022 08:30-0500 Diastolic blood pressure 78 mm[Hg] Jamar Ball Other [employer] Other 09-16-2022 08:30-0500 Respiratory rate 12 /min Jamar Ball Other [employer] Other 09-16-2022 08:30-0500 Systolic blood pressure 116 mm[Hg] Jamar Ball Other [employer] Other 09-09-2022 08:30-0500 Body height 168.91 cm Jamar Ball Other [employer] Other 09-09-2022 08:30-0500 Body mass index (BMI) [Ratio] 33.45 kg/m2 Jamar Ball Other [employer] Other 09-09-2022 08:30-0500 Body weight 95.44 kg Jamar Ball Other [employer] Other 09-09-2022 08:30-0500 Diastolic blood pressure 76 mm[Hg] Jamar Ball Other [employer] Other 09-09-2022 08:30-0500 Respiratory rate 12 /min Jamar Ball Other [employer] Other 09-09-2022 08:30-0500 Systolic blood pressure 118 mm[Hg] Jamar Ball Other [employer] Other 09-09-2022 07:30-0500 Body height 168.91 cm Jamar Ball Other [employer] Other 09-09-2022 07:30-0500 Body mass index (BMI) [Ratio] 33.45 kg/m2 Jamar Ball Other [employer] Other 09-09-2022 07:30-0500 Body weight 95.44 kg Jamar Ball Other [employer] Other 09-09-2022 07:30-0500 Diastolic blood pressure 76 mm[Hg] Jamar Ball Other [employer] Other 09-09-2022 07:30-0500 Respiratory rate 12 /min Jamar Ball Other [employer] Other 09-09-2022 07:30-0500 Systolic blood pressure 118 mm[Hg] Jamar Ball Other [employer] Other 08-11-2022 09:24-0500 Body height 167.6 cm Marco A Esqueda MD Work Phone: [facility] 08-11-2022 09:24-0500 Body temperature 97 [degF] Marco A Esqueda MD Work Phone: [facility] 08-11-2022 09:24-0500 Body weight 96.44 kg Marco A Esqueda MD Work Phone: [facility] 08-11-2022 09:24-0500 Diastolic blood pressure 56 mm[Hg] Marco A Esqueda MD Work Phone: [facility] 08-11-2022 09:24-0500 Heart rate 53 /min Marco A Esqueda MD Work Phone: [facility] 08-11-2022 09:24-0500 Respiratory rate 16 /min Marco A Esqueda MD Work Phone: [facility] 08-11-2022 09:24-0500 SaO2% (BldA) [Mass fraction] 97 % Marco A Esqueda MD Work Phone: [facility] 08-11-2022 09:24-0500 Systolic blood pressure 129 mm[Hg] Marco A Esqueda MD Work Phone: [facility] 07-21-2022 15:30-0500 Body height 168.91 cm Jamar Ball Other [employer] Other 07-21-2022 15:30-0500 Body mass index (BMI) [Ratio] 34.18 kg/m2 Jamar Ball Other [employer] Other 07-21-2022 15:30-0500 Body weight 97.52 kg Jamar Ball Other [employer] Other 07-21-2022 15:30-0500 Diastolic blood pressure 76 mm[Hg] Jamar Ball Other [employer] Other 07-21-2022 15:30-0500 Respiratory rate 16 /min Jamar Ball Other [employer] Other 07-21-2022 15:30-0500 Systolic blood pressure 118 mm[Hg] Jamar Ball Other [employer] Other 05-13-2022 09:07-0400 Blood Pressure Location Anthony CSRUGGS [facility] 05-13-2022 09:07-0400 Diastolic blood pressure 72 mm[Hg] Anthonycindy SCRUGGS [facility] 05-13-2022 09:07-0400 Heart rate 55 /min Anthony SCRUGGS [facility] 05-13-2022 09:07-0400 Respiratory rate 16 /min Anthony SCRUGGS [facility] 05-13-2022 09:07-0400 Systolic blood pressure 108 mm[Hg] Anthony SCRUGGS [facility] 05-12-2022 10:41-0400 Body temperature 97.81 [degF] LUAN Khan MD Work Phone: [facility] 05-12-2022 10:41-0400 Body weight 95.07 kg LUAN Khan MD Work Phone: [facility] 05-12-2022 10:41-0400 Diastolic blood pressure 42 mm[Hg] LUAN Khan MD Work Phone: [facility] 05-12-2022 10:41-0400 Heart rate 51 /min LUAN Khan MD Work Phone: [facility] 05-12-2022 10:41-0400 Respiratory rate 18 /min LUAN Khan MD Work Phone: [facility] 05-12-2022 10:41-0400 SaO2% (BldA) [Mass fraction] 99 % LUAN Khan MD Work Phone: [facility] 05-12-2022 10:41-0400 Systolic blood pressure 134 mm[Hg] LUAN Khan MD Work Phone: [facility] 02-17-2022 09:36-0400 Body height 167.6 cm Marco A Esqueda MD Work Phone: [facility] 02-17-2022 09:36-0400 Body temperature 97.9 [degF] Marco A Esqueda MD Work Phone: [facility] 02-17-2022 09:36-0400 Body weight 97.07 kg Marco A Esqueda MD Work Phone: [facility] 02-17-2022 09:36-0400 Diastolic blood pressure 58 mm[Hg] Marco A Esqueda MD Work Phone: [facility] 02-17-2022 09:36-0400 Heart rate 63 /min Marco A Esqueda MD Work Phone: [facility] 02-17-2022 09:36-0400 Respiratory rate 16 /min Marco A Esqueda MD Work Phone: [facility] 02-17-2022 09:36-0400 SaO2% (BldA) [Mass fraction] 99 % Marco A Esqueda MD Work Phone: [facility] 02-17-2022 09:36-0400 Systolic blood pressure 133 mm[Hg] Marco A Esqueda MD Work Phone: [facility] 11-18-2021 10:50-0400 Body temperature 97.7 [degF] [facility] [place] Work Phone: [facility] 11-18-2021 10:50-0400 Diastolic blood pressure 63 mm[Hg] [facility] [place] Work Phone: [facility] 11-18-2021 10:50-0400 Heart rate 60 /min [facility] [place] Work Phone: [facility] 11-18-2021 10:50-0400 Respiratory rate 18 /min [facility] [place] Work Phone: [facility] 11-18-2021 10:50-0400 SaO2% (BldA) [Mass fraction] 95 % [facility] [place] Work Phone: [facility] 11-18-2021 10:50-0400 Systolic blood pressure 139 mm[Hg] [facility] [place] Work Phone: [facility] 11-11-2021 13:58-0400 Body height 167.6 cm Marco A Esqueda MD Work Phone: [facility] 11-11-2021 13:58-0400 Body temperature 97.39 [degF] Marco A Esqueda MD Work Phone: [facility] 11-11-2021 13:58-0400 Body weight 98.97 kg Marco A Esqueda MD Work Phone: [facility] 11-11-2021 13:58-0400 Diastolic blood pressure 54 mm[Hg] Marco A Esqueda MD Work Phone: [facility] 11-11-2021 13:58-0400 Heart rate 68 /min Marco A Esqueda MD Work Phone: [facility] 11-11-2021 13:58-0400 Respiratory rate 16 /min Marco A Esqueda MD Work Phone: [facility] 11-11-2021 13:58-0400 SaO2% (BldA) [Mass fraction] 98 % Marco A Esqueda MD Work Phone: [facility] 11-11-2021 13:58-0400 Systolic blood pressure 130 mm[Hg] Marco A Esqueda MD Work Phone: [facility] 11-08-2021 13:03-0400 Blood Pressure Location Anthony SCRUGGS [facility] 11-08-2021 13:03-0400 Diastolic blood pressure 60 mm[Hg] Anthony SCRUGGS [facility] 11-08-2021 13:03-0400 Heart rate 61 /min Anthony SCRUGGS [facility] 11-08-2021 13:03-0400 Systolic blood pressure 135 mm[Hg] Anthony SCRUGGS [facility] Encounters Encounter Date Encounter Type Care Provider Facility Start: 10-07-2024 ambulatory Anthony Avalos ty:NORA Roberts Start: 08-08-2024 End: 08-08-2024 ambulatory [facility] Work Phone: Hematology/Oncology Comment on above: Malignant neoplasm o f prostate (HCC) (Primary Dx) Malignant neoplasm o f prostate (HCC) (Primary Dx); Essential hypertension; 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, unspecified vessel or lesion type; Type 2 diabetes mellitus without complication, without long-term current use of insulin (HCC) Start: 08-08-2024 End: 08-08-2024 Patient encounter procedure Christo Howard APRN.CNP Work Phone: Hematology/Oncology Start: 08-01-2024 End: 08-01-2024 ambulatory JAMAR FALL Facility:[facility] Start: 05-09-2024 End: 05-09-2024 ambulatory [facility] Work Phone: Hematology/Oncology Comment on above: Malignant neoplasm o f prostate (HCC) (Primary Dx) Start: 05-09-2024 End: 05-09-2024 Patient encounter procedure Marco A Esqueda MD Work Phone: Hematology/Oncology Start: 05-08-2024 End: 05-08-2024 Refill Aida Luo [facility] Work Phone: [facility] Comment on above: Refill Request Start: 05-03-2024 End: 05-03-2024 ambulatory JAMAR FALL Facility:[facility] Start: 04-19-2024 End: 04-19-2024 ambulatory Anthony SCRUGGS Facility:[facility] Start: 04-19-2024 End: 04-19-2024 Patient encounter procedure Anthony SCRUGGS [facility] Start: 04-01-2024 End: 04-01-2024 Refill Marco A Esqueda MD Work Phone: Hematology/Oncology Comment on above: Refill Request Start: 04-01-2024 End: 04-01-2024 Refill Aida Luo [facility] Work Phone: [facility] Comment on above: Refill Request Start: 03-29-2024 Encounter for preprocedural cardiovascular examination [facility] Start: 03-29-2024 End: 04-01-2024 ambulatory LORA [facility] Start: 03-29-2024 End: 04-01-2024 Encounter for other preprocedural examination [facility] Start: 03-29-2024 End: 04-01-2024 Encounter for preprocedural cardiovascular examination [facility] Start: 03-26-2024 End: 03-26-2024 ambulatory [facility] Work Phone: Start: 03-26-2024 End: 03-26-2024 Patient encounter procedure [facility] Work Phone: Start: 02-29-2024 End: 02-29-2024 ambulatory ALEXIA FRANCO Not Available Start: 02-26-2024 End: 02-26-2024 ambulatory LONG BOO Not Available Start: 02-02-2024 End: 02-02-2024 ambulatory [facility] Work Phone: Hematology/Oncology Comment on above: Malignant neoplasm o f prostate (HCC) (Primary Dx) Start: 02-02-2024 End: 02-02-2024 Patient encounter procedure Lynne Alarcon APRN.[employer] Work Phone: Hematology/Oncology Comment on above: Malignant neoplasm o f prostate (HCC) (Primary Dx) Start: 01-25-2024 End: 01-25-2024 ambulatory JAMAR FALL Facility:[facility] Start: 01-25-2024 Non-patient / Non-visit [facility] Physician [facility] Work Phone: Start: 11-23-2023 End: 11-23-2023 ambulatory [facility] Work Phone: Start: 11-23-2023 End: 11-23-2023 Patient encounter procedure [facility] Work Phone: Start: 11-02-2023 End: 11-02-2023 ambulatory Lab/Port Himanshu Ariella Work Phone: Hematology/Oncology Comment on above: Malignant neoplasm o f prostate (HCC) (Primary Dx) Malignant neoplasm o f prostate (HCC) (Primary Dx); Essential hypertension; 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, unspecified vessel or lesion type; Type 2 diabetes mellitus without complication, without long-term current use of insulin (HCC); Lesion of skin of right ear; Abdominal discomfort Start: 11-02-2023 End: 11-02-2023 Patient encounter procedure Christo Howard APRN.[employer] Work Phone: ARIELLA Start: 10-30-2023 End: 10-30-2023 ambulatory JAMAR FALL Facility:[facility] Start: 10-30-2023 Non-patient / Non-visit [facility] Work Phone: Start: 10-20-2023 End: 10-20-2023 ambulatory Anthony SCRUGGS Facility:[facility] Start: 10-20-2023 End: 10-20-2023 Patient encounter procedure Anthony SCRUGGS [facility] Start: 10-09-2023 Non-patient / Non-visit [facility] Work Phone: Start: 09-28-2023 End: 09-28-2023 ambulatory PABLO CHRISTINA Not Available Start: 09-12-2023 End: 09-12-2023 Patient encounter procedure [facility] Work Phone: Start: 09-06-2023 Non-patient / Non-visit [facility] Work Phone: Start: 08-28-2023 Bamboo flowsheet Long myrick APRN-[employer] Work Phone: [facility] Start: 08-28-2023 Bamboo flowsheet Long myrick 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 Work Phone: [facility] Start: 08-28-2023 End: 08-28-2023 Patient encounter procedure Long Boo 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 Work Phone: [facility] Comment on above: Neoplasm of unspecif ied behavior of bone, soft tissue, and skin; Actinic keratosis Start: 08-28-2023 End: 08-28-2023 ambulatory LONG BOO Not Available Start: 08-24-2023 End: 08-24-2023 ambulatory Jamar Fall Other [employer] Other Start: 08-24-2023 Patient encounter procedure Jamar Fall [facility] Start: 08-04-2023 End: 08-04-2023 ambulatory Jamar Fall Other [employer] Other Start: 08-04-2023 Telephone encounter Jamar EDMONDS [facility] Start: 06-22-2023 End: 06-22-2023 ambulatory [facility] Start: 06-05-2023 Telephone encounter Jamar EDMONDS [facility] Start: 06-05-2023 End: 06-05-[address] [facility] [employer] Other Start: 05-30-2023 End: 05-30-2023 ambulatory Jamar Juan David Other [employer] Other Start: 05-30-2023 Office outpatient vi sit 15 minutes Jamar Juan David [facility] Start: 05-01-2023 End: 05-01-2023 ambulatory Jamar Juan David Other [employer] Other Start: 05-01-2023 Office outpatient vi sit 15 minutes Jamar Juan David [facility] Start: 04-27-2023 Telephone encounter Jamar EDMONDS [facility] Start: 04-27-2023 End: 04-27-2023 ambulatory Lab/Port Himanshu Ariella Work Phone: Hematology/Oncology Comment on above: Malignant neoplasm o f prostate (HCC) (Primary Dx) Malignant neoplasm o f prostate (HCC) (Primary Dx); 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, unspecified vessel or lesion type; Essential hypertension; Type 2 diabetes mellitus without complication, without long-term current use of insulin (HCC) Start: 04-27-2023 End: 04-27-2023 Patient encounter procedure Christo Duke REYES Work Phone: ARIELLA Start: 04-25-2023 End: 04-25-2023 ambulatory Jamar Fall Other [employer] Other Start: 04-25-2023 Telephone encounter Jamar EDMONDS [facility] Start: 04-18-2023 End: 04-18-2023 ambulatory Jamar Fall Other [employer] Other Start: 04-18-2023 Telephone encounter Jamar EDMONDS [facility] Start: 04-17-2023 End: 04-17-2023 Patient encounter procedure Anthony SCRUGGS [facility] Start: 04-12-2023 End: 04-12-2023 ambulatory Jamar Fall Other [employer] Other Start: 04-12-2023 Telephone encounter Jamar EDMONDS [facility] Start: 04-06-2023 End: 04-06-2023 ambulatory Jamar Fall Other [employer] Other Start: 04-06-2023 Telephone encounter Jamar EDMONDS [facility] Start: 04-05-2023 End: 04-05-2023 ambulatory Jamar Fall Other [employer] Other Start: 04-05-2023 Office outpatient vi sit 15 minutes Jamar Fall [facility] Start: 04-05-2023 Telephone encounter Jamar EDMONDS [facility] Start: 03-15-2023 End: 03-15-2023 ambulatory Jamar Fall Other [employer] Other Start: 03-15-2023 Office outpatient vi sit [address] [facility] Start: 02-05-2023 End: 02-05-2023 ambulatory Jamar Fall Other [employer] Other Start: 02-05-2023 Telephone encounter Jamar Fall [facility] Start: 02-02-2023 End: 02-02-2023 ambulatory Lab/Port Himanshu Greenfield Work Phone: Hematology/Oncology Comment on above: Malignant neoplasm o f prostate (HCC) (Primary Dx) Start: 02-02-2023 End: 02-02-2023 Patient encounter procedure Marco A Esqueda MD Work Phone: [employer] Start: 11-15-2022 End: 11-15-2022 ambulatory Jamar Fall Other [employer] Other Start: 11-15-2022 Encounter by [facility] [employer] Jamar Fall [facility] Start: 11-11-2022 End: 11-11-2022 ambulatory Jamar Fall Other [employer] Other Start: 11-11-2022 Encounter by [facility] [employer] Jamar Fall 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 Facility:[facility] Start: 09-16-2022 End: 09-16-2022 ambulatory Jamar Fall Other [employer] Other Start: 09-16-2022 Office outpatient vi sit [address] [facility] Start: 09-09-2022 End: 09-09-2022 ambulatory Jamar Fall Other [employer] Other Start: 09-09-2022 Patient encounter procedure Jamar Fall 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 Start: 07-21-2022 Patient encounter procedure Jamar Fall [facility] Start: 07-21-2022 Telephone encounter Jamar Fall [facility] Start: 05-27-2022 End: 05-28-2022 ambulatory NONE LISTED REQUEST Facility:[facility] Start: 05-13-2022 End: 05-13-2022 Patient encounter procedure Anthony SCRUGGS [facility] Start: 05-12-2022 End: 05-12-2022 Patient [...] . Facility:[facility] Start: 05-02-2022 Telephone encounter Christo Costello yusuf REYES Work Phone: Hematology/Oncology Comment on above: Lab Orders Start: 04-27-2022 End: 04-28-2022 ambulatory LORA ENGLISH Facility: Start: 02-17-2022 End: 02-17-2022 ambulatory Marco A Esqueda MD Work Phone: Hematology/Oncology Comment on above: Malignant neoplasm o f prostate (HCC) (Primary Dx); Bone metastasis (HCC) Start: 02-17-2022 End: 02-17-2022 Patient encounter procedure Marco A Esqueda MD Work Phone: [employer] Start: 01-25-2022 End: 01-26-[address] DE LISTED REQUEST Facility: Start: 12-06-2021 Telephone encounter Clementine steinberg RN Work Phone: Hematology/Oncology Comment on above: Care Coordination (R efill Question) Start: 11-18-2021 End: 11-18-2021 ambulatory Lab/Port Himanshu Greenfield Work Phone: Hematology/Oncology Comment on above: Malignant [...] procedure Anthony Jesus SCRUGGS [facility] Start: 11-05-2021 End: 11-06-[address] MARCO A ESQUEDA Facility:[facility] Start: 11-04-2021 ambulatory Clementine lee RN Work Phone: Hematology/Oncology Comment on above: Oral Anti-cancer Age nt Education (Enzalutamide) Start: 11-04-2021 Telephone encounter Aida Coles [facility] Work Phone: Hematology/Oncology Comment on [...] Orders Start: 07-22-2021 Adult health examination Bam min Ball Other [facility] [employer] Other Procedures Date Procedure Procedure Detail Performing Clinician Start: 08-28-2023 CRYOTHERAPY SKIN LESION Long Boo 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 Work Phone: Start: 08-28-2023 SKIN / NAIL BIOPSY Windy Boo 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 Work Phone: Start: 07-17-2023 Decompression of med anthony nerve Anthony SCRUGGS Start: 10-25-[address] JESE FALL Comment on above: Performed By: #### P SAD #### [facility] [address] [place], [place] [address] Dr[address] Bharati Aguiar Start: 05-05-[address] JESE FALL Comment on above: Performed By: #### P SAD ####[facility] [id number] [place], [place] [address]XkDr. Bharati Aguiar Start: 02-16-2022 Adult depression scr eening assessment Marco A Esqueda MD Work Phone: Start: 11-10-2021 Adult depression scr eening assessment Clementine Aguilar RN Work Phone: Start: 05-03-2021 Adult depression scr eening assessment Marco A Esqueda MD Work Phone: Start: 03-30-2018 Teleradiotherapy procedure Anthony KAEL Comment on above: Started on 01/2018 co mpleted 03/30/18 Start: 10-20-2015 Cystoscopy Anthony CHAVEZ Start: 07-04-2015 Screening for malign ant neoplasm of colon Jamar Fall Other Start: 11-05-2014 Radical prostatectomy Ruperto krishnagisella SCRUGGS Start: 08-25-2014 Pre-surgery evaluation aJmar Fall Other Start: 08-25-2014 Preoperative cardiov ascular [...] DTaP,Tdap,Td Vaccine (6 - Td or Tdap) [facility] Start: 08-01-2027 Diabetes Screening Diabetes Screening [facility] Start: 05-03-2027 Diabetes Screening Diabetes Screening [facility] Start: 01-24-2027 Diabetes Screening Diabetes Screening [facility] Start: 10-29-2026 Diabetes Screening Diabetes Screening [facility] Start: 04-24-2026 Diabetes Screening Diabetes Screening [facility] Start: 02-02-2026 DIABETES SCREEN DIABETES SCREEN [facility] Start: 11-10-2025 DIABETES SCREEN DIABETES SCREEN [facility] Start: 08-11-2025 DIABETES SCREEN DIABETES SCREEN [facility] Start: 05-12-2025 DIABETES SCREEN DIABETES SCREEN [facility] Start: 02-17-2025 DIABETES SCREEN DIABETES SCREEN [facility] Start: 11-11-2024 DIABETES SCREEN DIABETES SCREEN [facility] Start: 11-07-2024 End: 11-07-2024 Follow-up encounter Hematology/Oncology Comment on above: 3 month lab follow up with indu aguilar Start: 11-06-2024 End: 02-05-2025 CBC W Auto Differential panel - Blood COMPLETE BLOOD COUNT AND DIFFERENTIAL Lab Routine Malignant neoplasm of prostate (HCC) Essential hypertension 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, unspecified vessel or lesion type Type 2 diabetes mellitus without complication, without long-term current use of insulin (HCC) Expected: 11/06/2024, Expires: 02/05/2025 [facility] Work Phone: Comment on above: Expected: 11/06/2024, Expires: Start: 11-06-2024 End: 02-05-2025 Comprehensive metabolic 2000 panel - Serum or Plasma COMPREHENSIVE METABOLIC PANEL Lab Routine Malignant neoplasm of prostate (HCC) Essential hypertension 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, unspecified vessel or lesion type Type 2 diabetes mellitus without complication, without long-term current use of insulin (HCC) Expected: 11/06/2024, Expires: 02/05/2025 [facility] Comment on above: Expected: 11/06/2024, Expires: Start: 11-06-2024 End: 02-05-2025 Prostate specific Ag [Mass/volume] in Serum or Plasma PROSTATE-SPECIFIC ANTIGEN DIAGNOSTIC Lab Routine Malignant neoplasm of prostate (HCC) Essential hypertension 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, unspecified vessel or lesion type Type 2 diabetes mellitus without complication, without long-term current use of insulin (HCC) Expected: 11/06/2024, Expires: 02/05/2025 [facility] Comment on above: Expected: 11/06/2024, Expires: Start: 10-31-2024 End: 10-31-2024 Patient encounter procedure 10/31/2024 9:00 AM EDT Office Visit [facility] [address] [place] [address] lab [facility] Comment on above: lab Start: 08-08-2024 End: 08-08-2024 Follow-up encounter Hematology/Oncology Comment on above: 3 month lab follow up with xgeva inj Start: 08-01-2024 End: 08-01-2024 Patient encounter procedure 08/01/2024 9:00 AM EST Office Visit [facility] [address] [place] [address] 3 month labs [facility] Comment on above: 3 month labs Start: 07-17-2024 Advance Directive Discussion Advance Directive Discussion [facility] Start: 05-09-2024 End: 05-09-2024 Follow-up encounter Hematology/Oncology Comment on above: 3 month lab follow up with xgeva inj Start: 05-07-2024 End: 05-07-2024 Patient encounter procedure 05/07/2024 9:00 AM EDT Office Visit [facility] [address] [place] [address] 3 month lab follow up with xgeva inj [facility] Comment on above: 3 month lab follow up with xgeva inj Start: 05-03-2024 End: 05-03-2024 Patient encounter procedure 05/03/2024 9:00 AM EDT Office Visit [facility] [address] [place] [address] 3 month lab follow up with xgeva inj [facility] Comment on above: 3 month lab follow up with xgeva inj Start: 04-29-2024 End: 07-29-2024 CBC W Auto Differential panel - Blood COMPLETE BLOOD COUNT AND DIFFERENTIAL Lab Routine Malignant neoplasm of prostate (HCC) Expected: 04/29/2024, Expires: 07/29/2024 [facility] Work Phone: Comment on above: Expected: 04/29/2024, Expires: Start: 04-29-2024 End: 07-29-2024 Comprehensive metabolic 2000 panel - Serum or Plasma COMPREHENSIVE METABOLIC PANEL Lab Routine Malignant neoplasm of prostate (HCC) Expected: 04/29/2024, Expires: 07/29/2024 [facility] Comment on above: Expected: 04/29/2024, Expires: Start: 04-29-2024 End: 07-29-2024 Prostate specific Ag [Mass/volume] in Serum or Plasma PROSTATE-SPECIFIC ANTIGEN DIAGNOSTIC Lab Routine Malignant neoplasm of prostate (HCC) Expected: 04/29/2024, Expires: 07/29/2024 [facility] Comment on above: Expected: 04/29/2024, Expires: Start: 03-17-2024 Covid-19 Vaccine ( season) Covid-19 Vaccine () [facility] Start: 03-17-2024 Influenza [facility] Start: 02-26-2024 End: 02-26-2024 Patient encounter procedure 02/26/2024 10:10 AM EDT Office Visit [facility] [address] [place] [id number] Long Boo APRN-[employer] [address] [place] [address] [facility] Start: 11-03-2023 End: 02-02-2024 CBC W Auto Differential panel - Blood COMPLETE BLOOD COUNT AND DIFFERENTIAL Lab Routine Malignant neoplasm of prostate (HCC) Essential hypertension 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, unspecified vessel or lesion type Type 2 diabetes mellitus without complication, without long-term current use of insulin (HCC) Lesion of skin of right ear Abdominal discomfort Expected: 11/03/2023, Expires: 02/02/2024 [facility] Work Phone: Comment on above: Expected: 11/03/2023, Expires: Start: 11-03-2023 End: 02-02-2024 Comprehensive metabolic 2000 panel - Serum or Plasma COMPREHENSIVE METABOLIC PANEL Lab Routine Malignant neoplasm of prostate (HCC) Essential hypertension 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, unspecified vessel or lesion type Type 2 diabetes mellitus without complication, without long-term current use of insulin (HCC) Lesion of skin of right ear Abdominal discomfort Expected: 11/03/2023, Expires: 02/02/2024 [facility] Work Phone: Comment on above: Expected: 11/03/2023, Expires: 4 Start: 11-03-2023 End: 02-02-2024 Prostate specific Ag [Mass/volume] in Serum or Plasma PROSTATE-SPECIFIC ANTIGEN DIAGNOSTIC Lab Routine Malignant neoplasm of prostate (HCC) Essential hypertension 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, unspecified vessel or lesion type Type 2 diabetes mellitus without complication, without long-term current use of insulin (HCC) Lesion of skin of right ear Abdominal discomfort Expected: 11/03/2023, Expires: 02/02/2024 [facility] Work Phone: Comment on above: Expected: 11/03/2023, Expires: Start: 08-28-2023 End: 08-28-2023 Patient encounter procedure 08/28/2023 11:25 AM EST Office Visit [facility] [address] [place] [id number] Long Boo APRN[employer] [address] [place] [address] Arrived [facility] Comment on above: Arrived Start: 07-28-2023 End: 09-27-2023 CBC W Auto Differential panel - Blood CBC + DIFF Lab Routine Malignant neoplasm of prostate (HCC) 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, unspecified vessel or lesion type Essential hypertension Type 2 diabetes mellitus without complication, without long-term current use of insulin (HCC) Expected: 07/28/2023, Expires: 09/27/2023 [facility] Work Phone: Comment on above: Expected: 07/28/2023, Expires: Start: 07-28-2023 End: 09-27-2023 Comprehensive metabolic 2000 panel - Serum or Plasma COMP METABOLIC PANEL Lab Routine Malignant neoplasm of prostate (HCC) 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, unspecified vessel or lesion type Essential hypertension Type 2 diabetes mellitus without complication, without long-term current use of insulin (HCC) Expected: 07/28/2023, Expires: 09/27/2023 [facility] Work Phone: Comment on above: Expected: 07/28/2023, Expires: Start: 07-28-2023 End: 09-27-2023 Prostate specific Ag [Mass/volume] in Serum or Plasma PSA/PROSTSPECAG DIAG Lab Routine Malignant neoplasm of prostate (HCC) 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, unspecified vessel or lesion type Essential hypertension Type 2 diabetes mellitus without complication, without long-term current use of insulin (HCC) Expected: 07/28/2023, Expires: 09/27/2023 [facility] Work Phone: Comment on above: Expected: 07/28/2023, Expires: Start: 07-17-2023 Advance Directive Discussion Advance Directive Discussion [facility] Start: 07-17-2023 Behavioral Health Screening Behavioral Health Screening [facility] Start: 06-19-2023 Urine microalbumin profile [facility] Start: 05-03-2023 End: 07-03-2023 Basic metabolic 2000 panel - Serum or Plasma BASIC METABOLIC PNL Lab Routine Malignant neoplasm of prostate (HCC) Expected: 05/03/2023 (Approximate), Expires: 07/03/2023 [facility] Work Phone: Comment on above: Expected: 05/03/2023 (Approximate), Expi res: 07/03/2023 Start: 05-03-2023 End: 07-03-2023 CBC W Auto Differential panel - Blood CBC + DIFF Lab Routine Malignant neoplasm of prostate (HCC) Expected: 05/03/2023 (Approximate), Expires: 07/03/2023 [facility] Work Phone: Comment on above: Expected: 05/03/2023 (Approximate), Expi res: 07/03/2023 Start: 05-03-2023 End: 07-03-2023 Prostate specific Ag [Mass/volume] in Serum or Plasma PSA/PROSTSPECAG DIAG Lab Routine Malignant neoplasm of prostate (HCC) Expected: 05/03/2023 (Approximate), Expires: 07/03/2023 [facility] Work Phone: Comment on above: Expected: 05/03/2023 (Approximate), Expi res: 07/03/2023 Start: 05-03-2023 End: 07-03-2023 Testosterone [Mass/volume] in Serum or Plasma TESTOSTERONE TOTAL Lab Routine Malignant neoplasm of prostate (HCC) Expected: 05/03/2023 (Approximate), Expires: 07/03/2023 [facility] Work Phone: Comment on above: Expected: 05/03/2023 (Approximate), Expi res: 07/03/2023 Start: 03-17-2023 Covid-19 Vaccine () Covid-19 Vaccine () [facility] Start: 03-17-2023 Influenza vaccination [facility] Start: 02-16-2023 Adult depression screening assessment DEPRESSION SCREENING [facility] Start: 02-09-2023 End: 04-11-2023 CBC W Auto Differential panel - Blood CBC + DIFF Lab Routine Malignant neoplasm of prostate (HCC) 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, unspecified vessel or lesion type Essential hypertension Type 2 diabetes mellitus without complication, without long-term current use of insulin (HCC) Expected: 02/09/2023, Expires: 04/11/2023 [facility] Work Phone: Comment on above: Expected: 02/09/2023, Expires: Start: 02-09-2023 End: 04-11-2023 Comprehensive metabolic 2000 panel - Serum or Plasma COMP METABOLIC PANEL Lab Routine Malignant neoplasm of prostate (HCC) 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, unspecified vessel or lesion type Essential hypertension Type 2 diabetes mellitus without complication, without long-term current use of insulin (HCC) Expected: 02/09/2023, Expires: 04/11/2023 [facility] Work Phone: Comment on above: Expected: 02/09/2023, Expires: Start: 02-09-2023 End: 04-11-2023 Prostate specific Ag [Mass/volume] in Serum or Plasma PSA/PROSTSPECAG DIAG Lab Routine Malignant neoplasm of prostate (HCC) 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, unspecified vessel or lesion type Essential hypertension Type 2 diabetes mellitus without complication, without long-term current use of insulin (HCC) Expected: 02/09/2023, Expires: 04/11/2023 [facility] Work Phone: Comment on above: Expected: 02/09/2023, Expires: Start: 11-10-2022 Adult depression screening assessment DEPRESSION SCREENING [facility] Start: 08-22-2022 COVID-19 VACCINE (6 - Moderna series) COVID-19 VACCINE (6 - Moderna series) [facility] Start: 07-17-2022 ADVANCE DIRECTIVE DISCUSSION ADVANCE DIRECTIVE DISCUSSION [facility] Start: 07-17-2022 DEPRESSION ASSESSMENT DEPRESSION ASSESSMENT [facility] Start: 05-03-2022 Adult depression screening assessment DEPRESSION SCREENING [facility] Start: 05-03-2022 End: 07-03-2022 CBC W Auto Differential panel - Blood CBC + DIFF Lab Routine Malignant neoplasm of prostate (HCC) Expected: 05/03/2022, Expires: 07/03/2022 [facility] Work Phone: Comment on above: Expected: 05/03/2022, Expires: 2 Start: 05-03-2022 End: 07-03-2022 Comprehensive metabolic 2000 panel - Serum or Plasma COMP METABOLIC PANEL Lab Routine Malignant neoplasm of prostate (HCC) Expected: 05/03/2022, Expires: 07/03/2022 [facility] Work Phone: Comment on above: Expected: 05/03/2022, Expires: 2 Start: 05-03-2022 End: 07-03-2022 Prostate specific Ag [Mass/volume] in Serum or Plasma PSA/PROSTSPECAG DIAG Lab Routine Malignant neoplasm of prostate (HCC) Expected: 05/03/2022, Expires: 07/03/2022 [facility] Work Phone: Comment on above: Expected: 05/03/2022, Expires: 2 Start: 03-17-2022 Influenza vaccination [facility] Start: 11-02-2021 End: 01-02-2022 CBC W Auto Differential panel - Blood CBC + DIFF Lab Routine Malignant neoplasm of prostate (HCC) Expected: 11/02/2021, Expires: 01/02/2022 [facility] Work Phone: Comment on above: Expected: 11/02/2021, Expires: 2 Start: 11-02-2021 End: 01-02-2022 Comprehensive metabolic 2000 panel - Serum or Plasma COMP METABOLIC PANEL Lab Routine Malignant neoplasm of prostate (HCC) Expected: 11/02/2021, Expires: 01/02/2022 [facility] Work Phone: Comment on above: Expected: 11/02/2021, Expires: Start: 09-14-2021 COVID-19 VACCINE (5 - Booster) COVID-19 VACCINE (5 - Booster) [facility] Start: 08-17-2021 COVID-19 VACCINE (4 - Booster for Moderna series) COVID-19 VACCINE (4 - Booster for Moderna series) [facility] Start: 07-17-2021 ADVANCE DIRECTIVE DISCUSSION ADVANCE DIRECTIVE DISCUSSION [facility] Start: 07-17-2021 DEPRESSION ASSESSMENT DEPRESSION ASSESSMENT [facility] Start: 02-22-2021 COVID-19 VACCINE (3 - Booster for Moderna series) COVID-19 VACCINE (3 - Booster for Moderna series) [facility] Start: 06-07-2015 PNEUMOVAX AGE 65 AND OVER WITH 5YR LOOKBACK (#1) PNEUMOVAX AGE 65 AND OVER WITH 5YR LOOKBACK (#1) [facility] Start: 06-20-2013 Urine microalbumin profile DTAP,TDAP,TD (1 - Tdap) [facility] Start: 08-22-2012 SHINGRIX VACCINE (2 of 3) SHINGRIX VACCINE (2 of 3) [facility] Start: 2006 RSV Vaccine (1 - 1-dose 60+ series) RSV Vaccine (1 - 1-dose 60+ series) [facility] Start: 02-14-1996 SHINGRIX VACCINE (1 of 2) SHINGRIX VACCINE (1 of 2) [facility] Start: 1991 COLOGUARD (FIT-DNA) COLOGUARD (FIT-DNA) [facility] Start: 1991 Colonoscopy COLONOSCOPY [facility] Start: 1991 COLORECTAL CANCER SCREENING COLORECTAL CANCER SCREENING [facility] Start: [address] COLONOGRAPHY [facility] Start: 1991 DIABETES SCREEN DIABETES SCREEN [facility] Start: 1991 FECAL OCCULT BLOOD FECAL OCCULT BLOOD [facility] Start: 1991 SIGMOIDOSCOPY SIGMOIDOSCOPY [facility] Start: 1981 LIPID SCREEN LIPID SCREEN [facility] Start: 02-14-1964 Anxiety Screening Anxiety Screening [facility] Start: 02-14-1964 Depression Screening Depression Screening [facility] Start: 02-14-1964 HEPATITIS C SCREENING HEPATITIS C SCREENING [facility] Start: 02-14-1964 Hepatitis C screening Hepatitis C Screening [facility] Dermatopathology exam Dermatopat hology exam Pathology and Cytology Timed Neoplasm of unspecified behavior of bone, soft tissue, and skin Release Upon Ordering for 1 Occurrences starting 08/28/2023 [facility] Work Phone: Comment on above: Release Upon Ordering for 1 Occurrences starting 08/28/2023 MR Cervical spine WO contrast US Extremity [facility] Immunizations Immunization Date Immunization Notes Care Provider Iris quinonez 03-26-2024 influenza, high dose seasonal, preservative-free 05-01-2023 influenza virus vaccine, unspecified formulation 05-01-2023 influenza, high dose seasonal, preservative-free Jamar Fall Other [facility] 04-28-2022 influenza nasal, unspecified formulation [facility] Work Phone: [facility] 04-28-2022 influenza, high-dose , quadrivalent vaccine (FLUZONE HIGH DOSE QUADRIVALENT) [facility] Work Phone: [facility] 04-28-2022 influenza, high dose seasonal, preservative-free Jamar Fall Other [facility] 04-28-2022 influenza virus vaccine, unspecified formulation [facility] Work Phone: [facility] 04-21-2022 COVID-19 booster vaccine, age 12+ yr, bivalent (MODERNA) [facility] Work Phone: [facility] Comment on above: Result Comment: 2023: [id number] 01-21-2022 COVID-19 Vaccine Moderna - Documentation Purposes Only Jamar Juan David Other [facility] Comment on above: Result Comment: 2023: [id number] 05-17-2021 COVID-19 Vaccine Moderna - Documentation Purposes Only Jamar Juan David Other [facility] Comment on above: Result Comment: 2023: [id number] 04-22-2021 influenza virus vaccine, split virus (incl. purified surface antigen) Jamar Fall Other [facility] 04-22-2021 influenza virus vaccine, unspecified formulation 04-16-2021 influenza nasal, unspecified formulation Marco A Esqueda MD Work Phone: [facility] 04-16-2021 influenza virus vaccine, unspecified formulation Anthony SCRUGGS [facility] 09-22-2020 COVID-19 Vaccine Moderna - Documentation Purposes Only Jamar Juan David Other [facility] 08-26-2020 SARS-CoV-2 (COVID-19 ) Ad26 vaccine, recombinant Anthony SCRUGGS [facility] 08-24-2020 COVID-19 original vaccine, full dose, monovalent (MODERNA) [facility] Work Phone: [facility] 07-17-2020 SARS-CoV-2 (COVID-19 ) mRNA-1273 vaccine Anthony SCRUGGS [facility] Comment on above: Result Comment: pt d oes not know the dates but states that he is fully vaccinated 04-23-2020 influenza virus vaccine, split virus (incl. purified surface antigen) Jamar Fall Other [facility] 04-23-2020 influenza virus vaccine, unspecified formulation 04-22-2019 influenza virus vaccine, split virus (incl. purified surface antigen) Jamar Fall Other [facility] 04-22-2019 influenza virus vaccine, unspecified formulation 04-16-2019 influenza nasal, unspecified formulation Marco A Esqueda MD Work Phone: [facility] 08-20-2018 zoster vaccine recombinant Marco A Esqueda MD Work Phone: [facility] 06-11-2018 zoster vaccine recombinant Marco A Esqueda MD Work Phone: [facility] 04-16-2018 influenza nasal, unspecified formulation Marco A Esqueda MD Work Phone: [facility] 03-27-2018 AS03 adjuvant [facility] Work Phone: [facility] 03-27-2018 influenza nasal, unspecified formulation [facility] Work Phone: [facility] 03-27-2018 influenza virus vaccine, split virus (incl. purified surface antigen) Jamar Fall Other [facility] Other 03-27-2018 influenza virus vaccine, unspecified formulation Anthony SCRUGGS [facility] 03-27-2018 Seasonal trivalent influenza vaccine, adjuvanted, preservative free Marco A Esqueda MD Work Phone: [facility] 06-12-2017 pneumococcal polysaccharide vaccine, 23 valent Marco A Esqueda MD Work Phone: [facility] 06-01-2017 pneumococcal polysaccharide vaccine, 23 valent Jamar Fall Other [facility] 06-01-2017 Prevnar 20 Jamar Fall Other 05-31-2017 influenza nasal, unspecified formulation [facility] Work Phone: [facility] 05-31-2017 influenza virus vaccine, unspecified formulation Anthony SCRUGGS [facility] 05-31-2017 influenza, injectabl e, quadrivalent, preservative free Marco A Esqueda MD Work Phone: [facility] 04-03-2017 influenza nasal, unspecified formulation [facility] Work Phone: [facility] 04-03-2017 influenza virus vaccine, split virus (incl. purified surface antigen) Jamar Fall Other [employer] Other 04-03-2017 influenza virus vaccine, unspecified formulation Anthony SCRUGGS [facility] 04-03-2017 influenza, high dose seasonal, preservative-free Marco A Esqueda MD Work Phone: [facility] 03-23-2017 influenza nasal, unspecified formulation Marco A Esqueda MD Work Phone: [facility] 04-01-2016 influenza virus vaccine, split virus (incl. purified surface antigen) Jamar Fall Other [facility] 04-01-2016 influenza virus vaccine, unspecified formulation 03-31-2016 influenza nasal, unspecified formulation Marco A Esqueda MD Work Phone: [facility] 05-11-2015 influenza nasal, unspecified formulation Marco A Esqueda MD Work Phone: [facility] 05-11-2015 influenza, seasonal, injectable, preservative free [facility] Work Phone: [facility] 05-11-2015 pneumococcal conjuga te vaccine, 13 valdiomedes Esqueda MD Work Phone: [facility] 04-29-2015 pneumococcal polysaccharide vaccine, 23 valent Marco A Esqueda MD Work Phone: [facility] 06-09-2014 influenza nasal, unspecified formulation [facility] Work Phone: [facility] 06-09-2014 influenza, seasonal, injectable, preservative free Marco A Esqueda MD Work Phone: [facility] 06-19-2013 diphtheria, tetanus toxoids and acellular pertussis vaccine, unspecified formulation Marco A Esqueda MD Work Phone: [facility] 06-19-2013 tetanus and diphther ia toxoids, not adsorbed, for adult use Marco A Esqueda MD Work Phone: [facility] 05-23-2013 influenza nasal, unspecified formulation Marco A Esqueda MD Work Phone: [facility] 04-24-2013 tetanus and diphther ia toxoids, adsorbed, preservative free, for adult use (5 Lf of tetanus toxoid and 2 Lf of diphtheria toxoid) Jamar Fall Other [facility] 06-27-2012 zoster vaccine, live Marco A lake MD Work Phone: [facility] 06-11-2012 influenza nasal, unspecified formulation Marco A Esqueda MD Work Phone: [facility] 06-02-2011 influenza nasal, unspecified formulation Marco A Esqueda MD Work Phone: [facility] 06-23-2010 pneumococcal polysaccharide vaccine, 23 valent Jamar Fall Other [facility] 06-07-2010 pneumococcal polysaccharide vaccine, 23 valent Marco A Esqueda MD Work Phone: [facility] 06-07-2010 pneumococcal vaccine , unspecified formulation Marco A Esqueda MD Work Phone: [facility] 05-28-2010 influenza nasal, unspecified formulation Marco A Esqueda MD Work Phone: [facility] 01-14-2010 pneumococcal polysaccharide vaccine, 23 valent Jamar Fall Other [facility] 05-25-2009 influenza nasal, unspecified formulation Marco A Esqueda MD Work Phone: [facility] 06-09-2008 influenza nasal, unspecified formulation Marco A Esqueda MD Work Phone: [facility] 07-23-2003 influenza virus vaccine, whole virus Marco A Esqueda MD Work Phone: [facility] 01-14-2003 diphtheria, tetanus toxoids and acellular pertussis vaccine, unspecified formulation Jamar Juan David Other [facility] 01-10-2003 TD(adult) unspecifie d formulation Marco A Esqueda MD Work Phone: [facility] 07-03-2002 influenza nasal, unspecified formulation Marco A Esqueda MD Work Phone: [facility] Payers Date Payer Category Payer Unknown MMO MMO MEDICARE SUPPLEMENT [id number] 2019-Present [phone] [address] [place] [address] Indemnity [id number] 2019 Unknown [id number] 2011 Medicare MEDICARE MEDICAR E A AND B [id number] 2011-Present [phone] [address] [address] [place] [address] Medicare [id number] 2011 Medicare [id number] 1959 Medicare [id number] 1959 Self-pay 1959 Unknown [id number] 1946 Unknown [id number] [id number] 1946 Unknown [id number] [id number] 1946 Unknown [id number] [id number] 1946 Unknown [id number] [id number] 1946 Unknown [id number] [id number] 1946 Unknown [id number] [id number] 1946 Unknown [id number] [id number] 1946 Unknown [id number] [id number] 1946 Unknown [id number] [id number] 1946 Unknown [id number] [id number] 1946 Unknown [id number] [id number] 1946 Unknown [id number] [id number] 1946 Unknown [id number] [id number] Unknown [id number] Unknown [id number] [id number] Unknown [id number] Social History Date Type Detail Facility Start: 11-08-2021 End: 08-11-2022 Tobacco smoking status NHIS Never smoked tobacco [facility] Start: 10-25-2021 End: 11-02-2023 Alcohol intake Current drinker of alcohol (finding) [facility] Start: 08-19-2014 History SDOH Alcohol Comment 1 day/wk [facility] Start: 1945 Sex Assigned At Not on file [facility] Start: 10-18-2021 End: 05-12-2022 Exposure to SARS-CoV-2 (event) Not sure [facility] Tobacco smoking status Never [facility] Start: 02-02-2023 End: 01-31-2024 Sex Assigned At Male [facility] Start: 1945 Sex Assigned At Male C [facility] Start: 01-12-2018 End: 08-11-2022 Tobacco use and exposure Smokeless tobacco non-user [facility] Start: 02-02-2023 End: 01-31-2024 History of Social function [facility] Start: 02-11-2022 Gender identity Identifies as male gender (finding) [facility] Start: 02-11-2022 Sexual orientation Heterosexual (ce coburn) [facility] How often to you hav e a [...] 09-06-2023 Tobacco smoking status NHIS Ex-smoker (finding) NEGATED: Highlighted rowStart: CARISSAF History of tobacco use Passive smoker [facility] Medical Equipment Procedure Code Equipment Code Equipment Origin al Text Equipment Identifier Dates Start: 10-26-2021 End: 05-12-2022 Comment on above: 1 Each once daily. T o test blood sugars 1 Each once daily. T o test blood sugar Blood Sugar Diagnostic (Contour Next Test Strips) strip Start: 10-10-2023 Lancets (Lancets,Thin) [facility] Start: 09-08-2023 Blood Sugar Diagnostic (Contour Next Test Strips) strip Start: 09-08-2023 End: 10-10-2023 Blood Sugar Diagnostic (Contour Next Test Strips) strip Start: 10-10-2023 Lancets (Lancets,Thin) [facility] Start: 09-08-2023 Blood Sugar Diagnostic (Contour Next Test Strips) strip Start: 09-08-2023 End: 10-10-2023 Functional Status Date Assessment Result Facility 04-19-2024 Functional Status N/A [facility] 10-20-2023 Functional Status N/A [facility] 04-17-2023 Functional Status N/A [facility] 05-13-2022 Functional Status N/A [facility] Clinical Notes 07-17-2014 to 08-07-2024 Christo Howard APRN.[employer] - 08/07/2024 10:42 AM ESTTelephone Encounter - Aida Luo [facility] - 05/08/2024 8:53 AM EDTTelephone Encounter - Aida Luo [facility] - 05/08/2024 8:53 AM EDT Note Date & Type Note Facility 08-07-2024 Note HNO ID: [id number] Author: CHRISTO HOWARD APRN.[employer] Service: ? Author Type: Nurse Practitioner Type: Progress Notes Filed: 08/08/2024 12:09 Note Text: PATIENT NAME: Pablo Felix DATE: 08/08/2024 PRIMARY CARE PHYSICIAN: Dr. Jamar Fall OTHER PHYSICIANS: Dr. Anthony Scruggs, Dr. Khan, [facility] Cardiology Portions of this encounter note have been copied from the note from 05/09/2024 and has been updated where appropriate, and reflect my current medical decision making from today. CC: This is a 79 year old male with metastatic prostate cancer, seen for scheduled follow-up and Xgeva. INTERIM HISTORY: Pablo Felix returns for scheduled follow-up. He remains on Xtandi 160 mg (4 tablets) daily and is tolerating it well. He denies any side effects. He receives Lupron from Dr. Scruggs and is next due in October. He offers no new complaints today. He has chronic neck pain which is managed by pain management. He denies any new areas of pain. No bone pain. He is urinating well. No pain, burning, difficulty or hematuria. He has had some intermittent diarrhea which he believes he is now lactose intolerance. MEDICATIONS: Current Outpatient Medications Medication Sig enzalutamide (XTANDI) 40 mg tablet Take 4 tablets (160 mg) by mouth once daily. enzalutamide (XTANDI) 80 mg tablet TAKE 2 TABLETS (160 MG) BY MOUTH ONCE DAILY. Calcium Citrate-Vitamin D3 200 mg-6.25 mcg (250 unit) tab Take 2 tablets by mouth once daily. metoprolol succinate ER (TOPROL XL) 25 mg 24 hr tablet Take by mouth. Xhqiatyffsvqx-Psifnwqd-Vnwcnt (MULTIVITAMIN 50 PLUS) tab Take 1 tablet [...] paralysis, seizures or tremors. PHYSICAL EXAM: BP 149/56 Pulse (!) 57 Temp 36.6 ?C (97.9 ?F) (Temporal) Resp 16 Ht 167.6 cm (5' 5.98 ) Wt 95 kg (209 lb 7 oz) SpO2 99% BMI 33.82 kg/m? ECOG PS: 0-1 General: Alert, oriented x 3. NAD. Non-toxic appearing. Well-nourished. HEENT: No scleral icterus. Heart: HRR s1s2 Lungs: Lungs CTA, no wheezing, rales, rhonchi or crackles ,non-labored breathing. Abdominal: Abd rounded but soft, NT, ND. Extremities: No edema or cyanosis. Skin: No rashes, bruising, or petechiae. Neuro: Non-focal exam without deficits. 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 Left base margin positive for neoplasm. Seminal vesicles with no diagnostic abnormality. 2 resected lymph nodes negative for neoplasm. LABS: Hemoglobin (g/dL) Date Value 08/01/2024 12.2 05/08/2018 12.8 Hematocrit (%) Date Value 08/01/2024 35.7 05/08/2018 36.8 WBC (k/uL) Date Value 08/01/2024 5.86 05/08/2018 5.63 Platelet Count (k/uL) Date Value 08/01/2024 177 05/08/2018 168 PSA 01/21/2019 <0.13 09/26/2019 0.09 06/17/2020 0.43 09/07/2020 0.84 05/06/2021 1.09 07/19/2021 1.58 10/25/2021 2.6 (more content not included)... [facility] 08-07-2024 History of Present illness Narrative PATIENT NAME: Pablo Felix DATE: 08/08/2024 PRIMARY CARE PHYSICIAN: Dr. Jamar Fall OTHER PHYSICIANS: Dr. Anthony Scruggs, Dr. Khan, [facility] Cardiology Portions of this encounter note have been copied from the note from 05/09/2024 and has been updated where appropriate, and reflect my current medical decision making from today. CC: This is a 79 year old male with metastatic prostate cancer, seen for scheduled follow-up and Xgeva. INTERIM HISTORY: Pablo Felix returns for scheduled follow-up. He remains on Xtandi 160 mg (4 tablets) daily and is tolerating it well. He denies any side effects. He receives Lupron from Dr. Scruggs and is next due in October. He offers no new complaints today. He has chronic neck pain which is managed by pain management. He denies any new areas of pain. No bone pain. He is urinating well. No pain, burning, difficulty or hematuria. He has had some intermittent diarrhea which he believes he is now lactose intolerance. MEDICATIONS: Current Outpatient Medications Medication Sig enzalutamide (XTANDI) 40 mg tablet Take 4 tablets (160 mg) by mouth once daily. enzalutamide (XTANDI) 80 mg tablet TAKE 2 TABLETS (160 MG) BY MOUTH ONCE DAILY. Calcium Citrate-Vitamin D3 200 mg-6.25 mcg (250 unit) tab Take 2 tablets by mouth once daily. metoprolol succinate ER (TOPROL XL) 25 mg 24 hr tablet Take by mouth. Nggocnqwczemk-Flehtyiy-Emrxay (MULTIVITAMIN 50 PLUS) tab Take 1 tablet [...] paralysis, seizures or tremors. PHYSICAL EXAM: BP 149/56 Pulse (!) 57 Temp 36.6 C (97.9 F) (Temporal) Resp 16 Ht 167.6 cm (5' 5.98 ) Wt 95 kg (209 lb 7 oz) SpO2 99% BMI 33.82 kg/m ECOG PS: 0-1 General: Alert, oriented x 3. NAD. Non-toxic appearing. Well-nourished. HEENT: No scleral icterus. Heart: HRR s1s2 Lungs: Lungs CTA, no wheezing, rales, rhonchi or crackles ,non-labored breathing. Abdominal: Abd rounded but soft, NT, ND. Extremities: No edema or cyanosis. Skin: No rashes, bruising, or petechiae. Neuro: Non-focal exam without deficits. 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 Left base margin positive for neoplasm. Seminal vesicles with no diagnostic abnormality. 2 resected lymph nodes negative for neoplasm. LABS: Hemoglobin (g/dL) Date Value 08/01/2024 12.2 05/08/2018 12.8 Hematocrit (%) Date Value 08/01/2024 35.7 05/08/2018 36.8 WBC (k/uL) Date Value 08/01/2024 5.86 05/08/2018 5.63 Platelet Count (k/uL) Date Value 08/01/2024 177 05/08/2018 168 PSA 01/21/2019 <0.13 09/26/2019 0.09 06/17/2020 0.43 09/07/2020 0.84 05/06/2021 1.09 07/19/2021 1.58 10/25/2021 2.64 12/30/2021 0.14 02/17/2022 0.03 05/12/2022 0.12 08/11/2022 0.11 10/25/2022 0.13 02/02/2023 0.09 04/24/2023 0.12 07/27/2023 0.13 10/29/2023 0.16 01/25/2024 0.15 05/03/2024 0.18 08/01/2024 0.19 RADIOLOGY/OTHER STUDIES: 11/05/2021 CT chest/abdomen/pelvis ([facility]) Several sclerotic lesions consistent with metastatic disease. No evidence of visceral organ involvement or lymphadenopathy. 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 01/22/2018 Nuclear bone scan ([facility]) New focal increased activity left frontal bone, left T8 vertebral body. 01/22/2018 MRI pelvis ([facility]) 4.5 cm area of T2 signal in the prostate bed. 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 Stable on current medications. Continue [...] management per PCP with CT scan monitoring. Christo Howard APRN.[employer] CC: Dr. Anthony Scruggs I spent a total of 30 minutes on the date of the service which included preparing to see the patient, lnhe-dt-hocv patient care, completing clinical documentation, obtaining and/or reviewing separately obtained history, performing a medically appropriate examination, counseling and educating the patient/family/caregiver, ordering medications, tests, or procedures, independently interpreting results (not separately reported), and communicating results to the patient/family/caregiver. documented in this encounter [facility] 05-08-2024 Telephone encounter Note This prescription confirms Pablo' re-enrollment in the Xtandi free drug program for 2024. Thank you Josh Luo PharmD, IDALIA [facility] Work Phone: 05-08-2024 Miscellaneous Notes This prescription confirms Pablo' re-enrollment in the Xtandi free drug program for 2024. Thank you Josh Luo PharmD, IDALIA documented in this encounter [facility] 05-08-2024 Note HNO ID: [id number] Author: MARCO A ESQUEDA MD Service: ? Author Type: Physician Type: Progress Notes Filed: 05/10/2024 07:40 Note Text: PATIENT NAME: Pablo Felix DATE: 05/09/2024 PRIMARY CARE PHYSICIAN: Dr. Jamar Fall OTHER PHYSICIANS: Dr. Anthony Scruggs, Dr. Khan, [facility] Cardiology Portions of this encounter [...] mg 24 hr tablet Take by mouth. Sxjiuiduchrlq-Olfpuhad-Pgletc (MULTIVITAMIN 50 PLUS) tab Take 1 tablet [...] Radical retropubic prostatectomy and bilateral pelvic lymphadenectomy ([facility]) Poorly differentiated prostatic adenocarcinoma of [...] 0.11 10/25/2022 0.1 (more content not included)... [facility] 05-08-2024 History of Present illness Narrative PATIENT NAME: Pablo Felix DATE: 05/09/2024 PRIMARY CARE PHYSICIAN: Dr. Jamar Fall OTHER PHYSICIANS: Dr. Anthony Scruggs, Dr. Khan, [facility] Cardiology Portions of this encounter [...] mg 24 hr tablet Take by mouth. Preytfubebzzs-Gsusqnyc-Dvffkf (MULTIVITAMIN 50 PLUS) tab Take 1 tablet [...] Radical retropubic prostatectomy and bilateral pelvic lymphadenectomy ([facility]) Poorly differentiated prostatic adenocarcinoma of [...] 05/03/2024 0.18 RADIOLOGY/OTHER STUDIES: 11/05/2021 CT chest/abdomen/pelvis ([facility]) Several sclerotic lesions consistent with metastatic disease. No evidence of visceral organ involvement or lymphadenopathy. 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 01/22/2018 Nuclear bone scan ([facility]) New focal increased activity left frontal bone, left T8 vertebral body. 01/22/2018 MRI pelvis ([facility]) 4.5 cm area of T2 signal in the prostate bed. 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 Stable on current medications. Continue [...] Dr. Anthony Scruggs documented in this encounter [facility] 04-19-2024 Hospital Discharge instructions Patient Education 04/19/2024 [...] under a microscope. This is called the Kimberton score and the total score can range from 6 10, indicating how likely it is that the cancer will spread (metastasize) to other parts of the body. The higher the score, the greater the likelihood that the cancer will spread. Lucrecia 6 or lower: This indicates that the cancer cells look similar to normal prostate cells (well differentiated). Kimberton 7: This indicates that the cancer cells [...] stress of having cancer. General instructions Take bbpu-mop-ntupxhs and prescription medicines only as told by your health care provider. If you have to go to the hospital, notify your cancer specialist (oncologist). Keep all follow-up visits. This is important. Where to find more information [place] [employer]: www.cancer.org [place] [employer] of Clinical Oncology: www.cancer.net National Cancer [place]: www.cancer.gov Contact a health care provider if: [...] provider. Document Revised: 09/29/2021 Document Reviewed: 09/29/2021 [employer] Patient Education 2023 [employer]. Follow Up Care 10/20/2023 09:58:12 With:KAEL JAMES, Anthony Lee, URL Address: [address] [place] [id number]- When: Unknown [facility] [employer] 04-19-2024 Note Patient Education Oncology Prostate Cancer [...] the prostate gla (more content not included)... [facility] 04-01-2024 Telephone encounter Note Recd phone call from [facility] that they are unable to obtain the Xtandi 80mg tablets a this time and requested a script for the 40 mg dosing. Order pending Josh Luo PharmD, BCOP [facility] Work Phone: 04-01-2024 Miscellaneous Notes Recd phone call from [facility] that they are unable to obtain the Xtandi 80mg tablets a this time and requested a script for the 40 mg dosing. Order pending Josh Luo PharmD, BCOP documented in this encounter [facility] 03-29-2024 Note Coronary artery dise ase is stable, no concerning symptoms currently overall is doing well he is planning bilateral carpal tunnel surgery soon with Dr. Charlton. Continue GDMT-continue aspirin, Lipitor, metoprolol, and lisinopril continue risk factor modifications- heart healthy diet, regular exercise as tolerated and continue all medications. [facility] 03-29-2024 Note Hypertension is well -controlled at 127/51 Continue lisinopril/hydrochlorothiazide and metoprolol. Renal function normal [facility] 03-29-2024 Note Lipid abnormalities are stable continue Lipitor 40 mg daily lipid profile is well-controlled and liver function is normal [facility] 03-29-2024 Note Reviewed echocardiog tabby from July 08 moderate aortic stenosis noted and reviewed echo with patient and his No concerning symptoms at this time patient would like symptoms including palpitations, lightheaded dizziness, syncope, chest pain, worsening shortness of breath and he voiced understanding Monitor with echocardiogram [facility] 03-29-2024 Note RCRI=1 points Class II Risk 6.0 % 30-day risk of , [place], or cardiac arrest From a cardiac perspective pt may proceed with carpal tunnel surgery, he is a moderate risk for a low risk surgery. She may hold aspirin 5-7 days prior and resume post op. Please monitor hemodynamics carefully and prevent any major fluid shifts. [facility] 03-29-2024 Note Pt is here for surge ry clearance. Pt denies chest pain, sob, palpatations Review of Systems Musculoskeletal: Positive for arthritis, back pain, joint pain and myalgias. All other systems reviewed and are negative. [facility] 03-29-2024 Note [facility] CARDIOLOGY PROGR ESS [...] stenosis and regur (more content not included)... [facility] 02-02-2024 Instructions Lynne Alarcon APRN.CNP - [...] swallowing, increasing confusion documented in this encounter [facility] 02-02-2024 History of Present illness Narrative PATIENT NAME: Pablo Felix DATE: February 02, 2024 PRIMARY CARE PHYSICIAN: Dr. Jamar Fall OTHER PHYSICIANS: Dr. Anthony Scruggs, Dr. Khan, [facility] Cardiology This note was copied [...] mg 24 hr tablet Take by mouth. Orevprzrrlqre-Mwgvyxey-Jozvil (MULTIVITAMIN 50 PLUS) tab Take 1 tablet [...] Radical retropubic prostatectomy and bilateral pelvic lymphadenectomy ([facility]) Poorly differentiated prostatic adenocarcinoma of [...] 01/25/2024 0.15 RADIOLOGY/OTHER STUDIES: 11/05/2021 CT chest/abdomen/pelvis ([facility]) Several sclerotic lesions consistent with metastatic disease. No evidence of visceral organ involvement or lymphadenopathy. 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 01/22/2018 Nuclear bone scan ([facility]) New focal increased activity left frontal bone, left T8 vertebral body. 01/22/2018 MRI pelvis ([facility]) 4.5 cm area of T2 signal in the prostate bed. 07/24/2014 CT abdomen/pelvis ([facility]) Diffuse prostatic enlargement with indentation of the [...] suppressed at <12. Bone scan obtained at [facility] 11/05/2021 revealed multiple bone metastases. 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 Stable on current medications. Continue [...] up. Lynne Alarcon APRN.CNP Hematology/Oncology [facility] [phone] CC: Dr. Anthony Scruggs documented in this encounter [facility] 02-02-2024 Note HNO ID: [id number] Author: LYNNE ALARCON APRN.ALEXA Service: ? Author Type: Nurse Practitioner Type: Progress Notes Filed: 02/02/2024 11:37 Note Text: PATIENT NAME: Pablo Felix DATE: February 02, 2024 PRIMARY CARE PHYSICIAN: Dr. Jamar Fall OTHER PHYSICIANS: Dr. Anthony Scruggs, Dr. Khan, [facility] Cardiology This note was copied [...] mg 24 hr tablet Take by mouth. Ptcmznjaliulu-Ujrtvrps-Yaikst (MULTIVITAMIN 50 PLUS) tab Take 1 tablet [...] Radical retropubic prostatectomy and bilateral pelvic lymphadenectomy ([facility]) Poorly differentiated prostatic adenocarcinoma of [...] 0.43 09/07/2020 0.84 (more content not included)... [facility] 11-02-2023 Note HNO ID: [id number] Author: CHRISTO HOWARD APRN.[employer] Service: ? Author Type: Nurse Practitioner Type: Progress Notes Filed: 11/03/2023 11:11 Note Text: PATIENT NAME: Pablo Felix DATE: 11/02/2023 PRIMARY CARE PHYSICIAN: Dr. Jamar Fall OTHER PHYSICIANS: Dr. Anthony Scruggs, Dr. Khan, [facility] Cardiology Portions of this encounter [...] mg 24 hr tablet Take by mouth. Hyqqmwmxtgvhv-Jxepaeah-Qwxaag (MULTIVITAMIN 50 PLUS) tab Take 1 tablet [...] Radical retropubic prostatectomy and bilateral pelvic lymphadenectomy ([facility]) Poorly differentiated prostatic adenocarcinoma of [...] <0.13 09/26/2019 0.09 (more content not included)... [facility] 11-02-2023 History of Present illness Narrative PATIENT NAME: Pablo Felix DATE: 11/02/2023 PRIMARY CARE PHYSICIAN: Dr. Jamar Fall OTHER PHYSICIANS: Dr. Anthony cSruggs, Dr. Khan, [facility] Cardiology Portions of this encounter [...] mg 24 hr tablet Take by mouth. Frzcclmzchnoc-Lldmcyyf-Buxsgb (MULTIVITAMIN 50 PLUS) tab Take 1 tablet [...] Radical retropubic prostatectomy and bilateral pelvic lymphadenectomy ([facility]) Poorly differentiated prostatic adenocarcinoma of [...] 10/29/2023 0.16 RADIOLOGY/OTHER STUDIES: 11/05/2021 CT chest/abdomen/pelvis ([facility]) Several sclerotic lesions consistent with metastatic disease. No evidence of visceral organ involvement or lymphadenopathy. 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 01/22/2018 Nuclear bone scan ([facility]) New focal increased activity left frontal bone, left T8 vertebral body. 01/22/2018 MRI pelvis ([facility]) 4.5 cm area of T2 signal in the prostate bed. 07/24/2014 CT abdomen/pelvis ([facility]) Diffuse prostatic enlargement with indentation of the [...] consistent with stage IIIC (pT2b, N0, M0), Kimberton 5+4 equal 9. Postop the patient's PSA [...] suppressed at <12. Bone scan obtained at [facility] 11/05/2021 revealed multiple bone metastases. 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 Stable on current medications. Continue [...] worsen would reconsider referral to GI. Christo Howadr APRN.ALEXA CC: Dr. Anthony Scruggs I spent a total of 30 minutes on the date of the service which included preparing to see the patient, lbpd-kf-xnil patient care, completing clinical documentation, obtaining and/or reviewing separately obtained history, performing a medically appropriate examination, counseling and educating the patient/family/caregiver, ordering medications, tests, or procedures, independently interpreting results (not separately reported), and communicating results to the patient/family/caregiver. documented in this encounter [facility] 10-20-2023 Hospital Discharge instructions Patient Education 10/20/2023 [...] under a microscope. This is called the Kimberton score and the total score can range from 6 10, indicating how likely it is that the cancer will spread (metastasize) to other parts of the body. The higher the score, the greater the likelihood that the cancer will spread. Kimberton 6 or lower: This indicates that the cancer cells look similar to normal prostate cells (well differentiated). Kimberton 7: This indicates that the cancer cells look somewhat similar to normal prostate cells (moderately differentiated). Kimberton 8, 9, or 10: This indicates that [...] stress of having cancer. General instructions Take qimc-hdq-hnprlzs and prescription medicines only as told by your health care provider. If you have to go to the hospital, notify your cancer specialist (oncologist). Keep all follow-up visits. This is important. Where to find more information [place] [employer]: www.cancer.org [place] Society of Clinical Oncology: www.cancer.net National Cancer [place]: www.cancer.gov Contact a health care provider if: [...] provider. Document Revised: 09/29/2021 Document Reviewed: 09/29/2021 [employer] Patient Education 2022 [employer]. Follow Up Care 04/17/2023 09:25:02 With:KAEL JAMES, Anthony Lee, URL Address: [address] [place] [id number]- When: Unknown [facility] 08-28-2023 History of Present illness [...] limited to risks of scarring, darker or inspector air carrier pigmentary changes, recurrence, incomplete removal and infection. [...] results, 6 months documented in this encounter [facility] 08-24-2023 Evaluation note Encounter Date Diagnosis [...] use, the patient reduces the risk for TN, CVA, HTN, cardiac dysrhythmias and sudden cardiac [...] retention cyst and frontal sinus mass benign [employer] Other 01-19-2024 Evaluation note* Encounter Date Diagnosis Assessment Notes Treatment Notes Treatment Clinical Notes Jul, Pancreatic mass (ICD-10 - K86.89) MRCP: 4cm mass - 2022 - previously completed EUS bx at [facility] - stable in size from 2021 [employer] Other 12-07-[address] [facility] Cardiology Clinic Note Chief Complaint: Patient [...] problems arise Bridger Mulligan MD, MPH, [facility], [facility] Interventional Cardiology Pager Email: [email or web address]11-14-2023 Evaluation note* Encounter Date Diagnosis Assessment Notes [...] ENT since scheduling appt for sinus mass [facility] Other 10-16-2023 Evaluation note* Encounter Date Diagnosis [...] malignant neoplasm of bone (ICD-10 - C79.51) [employer] Other 10-12-2023 History of Present illness Narrative* Christo Howard, ROCHELLE[employer] - 04/27/2023 10:00 AM EDT PATIENT NAME: Pablo Felix DATE: 04/27/2023 PRIMARY CARE PHYSICIAN: Dr. Jamar Fall OTHER PHYSICIANS: Dr. Anthony Scruggs, Dr. Khan, [facility] Cardiology Portions of this encounter [...] mg 24 hr tablet Take by mouth. Fvchnurqlmglz-Bgnlyeiy-Uufvrb (MULTIVITAMIN 50 PLUS) tab Take 1 tablet [...] Radical retropubic prostatectomy and bilateral pelvic lymphadenectomy ([facility]) Poorly differentiated prostatic adenocarcinoma of [...] 04/24/2023 0.12 RADIOLOGY/OTHER STUDIES: 11/05/2021 CT chest/abdomen/pelvis ([facility]) Several sclerotic lesions consistent with metastatic disease. No evidence of visceral organ involvement or lymphadenopathy. 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 01/22/2018 Nuclear bone scan ([facility]) New focal increased activity left frontal bone, left T8 vertebral body. 01/22/2018 MRI pelvis ([facility]) 4.5 cm area of T2 signal in the prostate bed. 07/24/2014 CT abdomen/pelvis ([facility]) Diffuse prostatic enlargement with indentation of the bladder base. Incidental 2.5 x 1 cm exophytic hypodense lesion adjacent to the pancreatic body. ASSESSMENT/PLAN: 1. Metastatic prostate cancer (HCC) - ICD9: 185, ICD10: C61 (primary diagnosis) The patient was diagnosed with early-stage high-grade prostate cancer in June 2014 (TRUS [id number]/02/2014). He underwent a radical prostatectomy on 11/05/2014. [...] suppressed at <12. Bone scan obtained at [facility] 11/05/2021 revealed multiple bone metastases. 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 Stable on current medications. Continue [...] which included preparing to see the patient, jmmj-is-sxzh patient care, completing clinical documentation, obtaining and/or reviewing separately obtained history, performing a medically appropriate examination, counseling and educating the pat ient/family/caregiver, ordering medications, tests, or procedures, independently interpreting results (not separately reported), and communicating results to the patient/family/caregiver. [facility]* Encounter Date Diagnosis Assessment Notes Treatment Notes Treatment Clinical Notes Apr, Pancreatic mass (ICD-10 - K86.89) [employer] Other [id number] Hospital Discharge instructions Patient Education 04/17/2023 09:18:19 [...] greater thelikelihood that the cancer will spread. Kimberton 6 or lower: This indicates that the cancer cells look similar to normal prostate cells (well differentiated). Kimberton 7: This indicates that the cancer cells look somewhat similar to normal prostate cells (moderately differentiated). Kimberton 8, 9, or 10: This indicates that [...] stress of having cancer. General instructions Take ewol-bga-ygglohi and prescription medicines only as told by your health care provider. If you have to go to the hospital, notify your cancer specialist (oncologist). Keep all follow-up visits. This is important. Where to find more information [place] [employer]: www.cancer.org [place] Society of Clinical Oncology: www.cancer.net National Cancer [place]: www.cancer.gov Contact a health care provider if: [...] provider. Document Revised: 09/29/2021 Document Reviewed: 09/29/2021 [employer] Patient Education 2022 [employer]. Follow Up Care 10/28/2022 08:37:57 With:KAEL JAMES, Anthony Lee, URL Address: [facility] [address] , [place] [address]- [phone] When: Unknown Comments:6 mos w/ PSA (and possible Lupron) [facility]* Encounter Date Diagnosis Assessment Notes Treatment Notes Treatment Clinical Notes Mar, Pancreatic mass (ICD-10 - K86.89) [facility] [employer] Other 09-20-2023 Evaluation note* Encounter Date Diagnosis Assessment Notes Treatment Notes Treatment Clinical Notes Mar, Right upper quadrant abdominal pain (ICD-10 - R10.11) Diet instructions Lab to r/o acute infection, cholecystitis, pancreatitis GBUS vs CT abd based on results BLand, low fat diet Mar, Nausea (ICD-10 - R11.0) Anderson , small/frequent feedings. Pepcid, Prilosec, Tums as [...] Microalbumin, Dilated eye exam and Foot exam [facility] Other 08-30-2023 Evaluation note* Encounter Date Diagnosis [...] use, the patient reduces the risk for TN, CVA, HTN, cardiac dysrhythmias and sudden cardiac [...] exercise for 30 minutes, 3-5 times weekly. [employer] Other 07-23-2023 Evaluation note* Encounter Date Diagnosis Assessment Notes Treatment Notes Treatment Clinical Notes Jan, Left bundle-branch block, unspecified (ICD-10 - I44.7) [employer] Other 07-20-2023 History of Present illness Narrative* Marco A Esqueda MD - 02/02/2023 7:38 AM EDT PATIENT NAME: Pablo Felix DATE: 02/02/2023 PRIMARY CARE PHYSICIAN: Dr. Jamar Fall OTHER PHYSICIANS: Dr. Anthony Scruggs, Dr. Khan, [facility] Cardiology Portions of this encounter [...] for October [address] Scrugsg. (Lupron last given March 2022). On follow-up [...] mg 24 hr tablet Take by mouth. Agtmwfmnoxheb-Poxmkopy-Ljtqbb (MULTIVITAMIN 50 PLUS) tab Take 1 tablet [...] Radical retropubic prostatectomy and bilateral pelvic lymphadenectomy ([facility]) Poorly differentiated prostatic adenocarcinoma of [...] 10/25/2022 0.13 RADIOLOGY/OTHER STUDIES: 11/05/2021 CT chest/abdomen/pelvis ([facility]) Several sclerotic lesions consistent with metastatic disease. No evidence of visceral organ involvement or lymphadenopathy. 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 01/22/2018 Nuclear bone scan ([facility]) New focal increased activity left frontal bone, left T8 vertebral body. 01/22/2018 MRI pelvis ([facility]) 4.5 cm area of T2 signal in the prostate bed. 07/24/2014 CT abdomen/pelvis ([facility]) Diffuse prostatic enlargement with indentation of the bladder base. Incidental 2.5 x 1 cm exophytic hypodense lesion adjacent to the pancreatic body. ASSESSMENT/PLAN: 1. Metastatic prostate cancer (HCC) - ICD9: 185, ICD10: C61 (primary diagnosis) The patient was diagnosed with early-stage high-grade prostate cancer in June 2014 (TRUS [id number]/02/2014). He underwent a radical prostatectomy on 11/05/2014. Pathology consistent with stage IIIC (pT2b, N0, M0), Kimberton 5+4 equal 9. Postop the patient's PSA [...] suppressed at <12. Bone scan obtained at [facility] 11/05/2021 revealed multiple bone metastases. 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 Stable on current medications. Continue [...] CC: Dr. Anthony Scruggs [facility] History of Present illness Narrative* Christo Hoawrd APRN.[employer] - 11/10/2022 10:00 AM EDT PATIENT NAME: Pablo Felix DATE: 11/10/2022 PRIMARY CARE PHYSICIAN: Dr. Jamar Fall OTHER PHYSICIANS: Dr. Anthony Scruggs, Dr. Khan, [facility] Cardiology Portions of this encounter [...] mg 24 hr tablet Take by mouth. Ztllyvohyxmii-Liryugjc-Itgkrw (MULTIVITAMIN 50 PLUS) tab Take 1 tablet [...] Radical retropubic prostatectomy and bilateral pelvic lymphadenectomy ([facility]) Poorly differentiated prostatic adenocarcinoma of [...] PSA 0.13 RADIOLOGY/OTHER STUDIES: 11/05/2021 CT chest/abdomen/pelvis ([facility]) Several sclerotic lesions consistent with metastatic disease. No evidence of visceral organ involvement or lymphadenopathy. 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 01/22/2018 Nuclear bone scan ([facility]) New focal increased activity left frontal bone, left T8 vertebral body. 01/22/2018 MRI pelvis ([facility]) 4.5 cm area of T2 signal in the prostate bed. 07/24/2014 CT abdomen/pelvis ([facility]) Diffuse prostatic enlargement with indentation of the bladder base. Incidental 2.5 x 1 cm exophytic hypodense lesion adjacent to the pancreatic body. ASSESSMENT/PLAN: 1. Metastatic prostate cancer (HCC) - ICD9: 185, ICD10: C61 (primary diagnosis) The patient was diagnosed with early-stage high-grade prostate cancer in June 2014 (TRUS [id number]/02/2014). He underwent a radical prostatectomy on 11/05/2014. [...] suppressed at <12. Bone scan obtained at [facility] 11/05/2021 revealed multiple bone metastases. 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 Stable on current medications. Continue [...] which included preparing to see the patient, lfuy-nm-czco patient care, completing clinical documentation, obtaining and/or reviewing separately obtained history, performing a medically appropriate examination, counseling and educating the pat ient/family/caregiver, ordering medications, tests, or procedures, independently interpreting results (not separately reported), and communicating results to the patient/family/caregiver. [facility] Administration03-03-2023 Evaluation note* Encounter Date Diagnosis Assessment Notes [...] injection w/ Kenalog, may increase BS slightly [employer] Other 02-24-2023 Evaluation note* Encounter Date Diagnosis [...] I35.0) 04/2022 Echo: ROGER 1.13, Velocity 324, / Continue to control BP. No CP, tachycardia [...] use, the patient reduces the risk for TN, CVA, HTN, cardiac dysrhythmias and sudden cardiac [...] along w/ additional oral chemotherapy from [facility]. Also receiving Boniva Aug, Other Personalized [...] reviewed and amended by provider signed below. [employer] Other 01-26-2023 History of Present illness Narrative* Marco A Esqueda MD - 08/11/2022 7:42 AM EST PATIENT NAME: Pablo Felix DATE: 08/11/2022 PRIMARY CARE PHYSICIAN: Dr. Jamar Fall OTHER PHYSICIANS: Dr. Anthony Scruggs, Dr. Khan, [facility] Cardiology Portions of this encounter [...] mg 24 hr tablet Take by mouth. Rewtzpxtsazku-Yjlaugwv-Hczjag (MULTIVITAMIN 50 PLUS) tab Take 1 tablet [...] Radical retropubic prostatectomy and bilateral pelvic lymphadenectomy ([facility]) Poorly differentiated prostatic adenocarcinoma of [...] 08/11/2022 PSA RADIOLOGY/OTHER STUDIES: 11/05/2021 CT chest/abdomen/pelvis ([facility]) Several sclerotic lesions consistent with metastatic disease. No evidence of visceral organ involvement or lymphadenopathy. 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 01/22/2018 Nuclear bone scan ([facility]) New focal increased activity left frontal bone, left T8 vertebral body. 01/22/2018 MRI pelvis ([facility]) 4.5 cm area of T2 signal in the prostate bed. 07/24/2014 CT abdomen/pelvis ([facility]) Diffuse prostatic enlargement with indentation of the bladder base. Incidental 2.5 x 1 cm exophytic hypodense lesion adjacent to the pancreatic body. ASSESSMENT/PLAN: 1. Metastatic prostate cancer (HCC) - ICD9: 185, ICD10: C61 (primary diagnosis) The patient was diagnosed with early-stage high-grade prostate cancer in June 2014 (TRUS [id number]/02/2014). He underwent a radical prostatectomy on 11/05/2014. Pathology consistent with stage IIIC (pT2b, N0, M0), Kimberton 5+4 equal 9. Postop the patient's PSA [...] suppressed at <12. Bone scan obtained at [facility] 11/05/2021 revealed multiple bone metastases. 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 Stable on current medications. Continue [...] CC: Dr. Anthony Scruggs documented in this encounterVeterans Health Administration01-05-2023 NotePROCEDURE: XR SHOULDER LT 2V or > [...] Electronically authenticated by: CYNTHIA TORRES Date: 2022-07-21 15:46[facility]01-05-2023 Evaluation note* Encounter Date Diagnosis Assessment Notes Treatment Notes Treatment Clinical Notes Jul, Cervical spondylosis with radiculopathy (ICD-10 - M47.22) ROM exercises, heat/ice and Tylenol 1000mg tid. Initiated Tramadol w/ caution, no driving, may cause sedation. Jul, Acute pain of left shoulder (ICD-10 - M25.512) ROM exercises, Tylenol and Tramadol as needed. Jul, Annual physical exam (ICD-10 - Z00.00) [employer] Other 10-28-2022 Hospital Discharge instructions Patient Education [...] who: Are older than age 65. Are -Samoan. Are obese. Have a family history of [...] cells. Follow these instructions at home: Take fepr-kcu-elmiyhe and prescription medicines only as told by [...] 07/03/2006 Document Revised: 06/15/2018 Document Reviewed: 03/13/2017 [employer] Patient Education [email or web address]. Follow Up Care 11/08/2021 14:14:20 With:KAEL JAMES, Anthony Lee, URL Address: [address] [place] [address]- When: Unknown [facility] 10-27-2022 Nurse Note* Sheela Toney - 05/12/2022 10:43 AM EDT AUA=2 documented in this encounterVeterans Health Administration10-27-2022 History of Present illness Narrative* Zach Khan MD - 05/12/2022 10:41 AM EDT Radiation Oncology - Follow Up Note PATIENT NAME: Pablo Felix PATIENT DIAGNOSIS: Prostate adenocarcinoma, initial clinical stage II, initial PSA 1.07, biopsy Lucrecia score 9(4,5), s/p prostatectomy for 11/05/14 pathologic stage IIIC [id number], Lucrecia 9 (5, 4) now with rising [...] Each once daily. To test blood sugar Tiakhklvhxuyj-Vxpxoozm-Hurkxk (MULTIVITAMIN 50 PLUS) tab Take 1 tablet [...] clinical stage II, initial PSA 1.07, biopsy Kimberton score 9(4,5), s/p prostatectomy for 11/05/14 pathologic stage IIIC [id number], Lucrecia 9 (5, 4) withrising PSA, subsequently [...] Zach Khan MD cc: Jamar Fall MD ([facility]) Portions of the above note extracted and edited from previous visit as well as active information included in the EMR. documented in this encounterVeterans Health Administration10-17-2022 Miscellaneous Notes* Telephone Encounter - Sheela Toney - 05/02/2022 10:48 AM EDT Patient coming in on 05/12/22 for follow up with labs. Please add lab orders. Thanks, Sheela Toney MA documented in this encounterVeterans Health Administration08-04-2022 History of Present illness Narrative* Marco A Esqueda MD - 02/17/2022 7:51 AM EDT PATIENT NAME: Pablo Felix DATE: 02/17/2022 PRIMARY CARE PHYSICIAN: Jamar Fall, OTHER PHYSICIANS: Dr. Anthony Scruggs, Dr. Khan, [facility] Cardiology Portions of this encounter [...] Each once daily. To test blood sugar Oryfdiyugldht-Xjhwtikw-Xkgrom (MULTIVITAMIN 50 PLUS) tab Take 1 tablet [...] Radical retropubic prostatectomy and bilateral pelvic lymphadenectomy ([facility]) Poorly differentiated prostatic adenocarcinoma of [...] PSA 0.14 RADIOLOGY/OTHER STUDIES: 11/05/2021 CT chest/abdomen/pelvis ([facility]) Several sclerotic lesions consistent with metastatic disease. No evidence of visceral organ involvement or lymphadenopathy. 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 01/22/2018 Nuclear bone scan ([facility]) New focal increased activity left frontal bone, left T8 vertebral body. 01/22/2018 MRI pelvis ([facility]) 4.5 cm area of T2 signal in the prostate bed. 07/24/2014 CT abdomen/pelvis ([facility]) Diffuse prostatic enlargement with indentation of the bladder base. Incidental 2.5 x 1 cm exophytic hypodense lesion adjacent to the pancreatic body. ASSESSMENT/PLAN: 1. Metastatic prostate cancer (HCC) - ICD9: 185, ICD10: C61 (primary diagnosis) The patient was diagnosed with early-stage high-grade prostate cancer in June 2014 (TRUS [id number]/02/2014). He underwent a radical prostatectomy on 11/05/2014. Pathology consistent with stage IIIC (pT2b, N0, M0), Kimberton 5+4 equal 9. Postop the patient's PSA [...] at <12. Staging scans were obtained at [facility] on 11/05/2021. 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 Stable on current medications. Continue [...] CC: Dr. Anthony Scruggs documented in this encounterVeterans Health Administration05-23-2022 Miscellaneous Notes* Telephone Encounter - Clementine Aguilar [...] that he has the phone number to [facility]. No additional questionsnoted. Clementine Aguilar RN documented in this encounterVeterans Health Administration04-28-2022 History of Present illness Narrative* Marco A Esqueda MD - 11/11/2021 7:42 AM EDT PATIENT NAME: Pablo Felix DATE: 11/11/2021 PRIMARY CARE PHYSICIAN: Jamar Fall DO OTHER PHYSICIANS: Dr. Anthony Scruggs, Dr. Khan, [facility] Cardiology Portions of this encounter note have been copied from my note from 10/28/2021 and has been updated where appropriate, and reflect my current medical decision making from today. CC: This is a 76 year old male with recently diagnosed metastatic prostate cancer, seen for scheduled follow-up. INTERIM HISTORY: Since the patient's initial visit here he underwent staging scans at [facility] on 11/05/2021. Bone scan revealed [...] Each once daily. To test blood sugar Oqmniiywxwnax-Yxzdkbbw-Wfkcgc (MULTIVITAMIN 50 PLUS) tab Take 1 tablet [...] Radical retropubic prostatectomy and bilateral pelvic lymphadenectomy ([facility]) Poorly differentiated prostatic adenocarcinoma of [...] PSA 2.64 RADIOLOGY/OTHER STUDIES: 11/05/2021 CT chest/abdomen/pelvis ([facility]) Several sclerotic lesions consistent with metastatic disease. No evidence of visceral organ involvement or lymphadenopathy. 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 01/22/2018 Nuclear bone scan ([facility]) New focal increased activity left frontal bone, left T8 vertebral body. 01/22/2018 MRI pelvis ([facility]) 4.5 cm area of T2 signal in the prostate bed. 07/24/2014 CT abdomen/pelvis ([facility]) Diffuse prostatic enlargement with indentation of the bladder base. Incidental 2.5 x 1 cm exophytic hypodense lesion adjacent to the pancreatic body. ASSESSMENT/PLAN: 1. Metastatic prostate cancer (HCC) - ICD9: 185, ICD10: C61 (primary diagnosis) The patient was diagnosed with early-stage high-grade prostate cancer in June 2014 (TRUS [id number]/02/2014). He underwent a radical prostatectomy on 11/05/2014. [...] at <12. Staging scans were obtained at [facility] on 11/05/2021. 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 Stable on current medications. Continue [...] monitor with repeat CT scan. Marco A Esuqeda MD CC: Dr. Anthony Scruggs documented in this encounterVeterans Health Administration04-27-2022 Miscellaneous Notes* Telephone Encounter - Clementine Aguilar RN - 11/10/2021 3:03 PM EDT Pt reports his Enzalutamide was delivered. Will start this evening. Clementine Aguilar RN documented in this encounterVeterans Health Administration04-26-2022 Miscellaneous Notes* Telephone Encounter - Clementine Aguilar RN - 11/09/2021 2:31 PM EDT Per pt, his Enzalutamide is scheduled to arrive tomorrow morning. Patient started/will start taking Enzalutamide on 11/10/21. Clementine Aguilar RN documented in this [facility]04-25-2022 Hospital Discharge instructions Patient Education 11/08/2021 [...] who: Are older than age 65. Are -Samoan. Are obese. Have a family history of [...] cells. Follow these instructions at home: Take fstw-kry-cfhclvx and prescription medicines only as told by [...] 07/03/2006 Document Revised: 06/15/2018 Document Reviewed: 03/13/2017 [employer] Patient Education 2020 [employer]. Follow Up Care 08/23/2021 13:26:07 With:KAEL JAMES, Anthony Lee, URL Address: [facility] [address], [place] [address]- [phone] When:05/10/2022 [facility] 04-21-2022 Miscellaneous Notes* Telephone Encounter - Clementine Aguilar RN - 11/04/2021 2:53 PM EDT Pt would like to get the 4th Covid vaccine when it's due. Dr Esqueda notified and gives the ok to proceed when due. Pt notified and verbalizes understanding. Clementine Aguilar RN documented in this encounterVeterans Health Administration04-21-2022 History of Present illness Narrative* Clementine Aguilar [...] Information handout: Enzalutamide, Specialty Pharmacy Information : [facility] and Specialty Pharmacy phone numbers: Yes [...] minutes Clementine Aguilar RN * Aida Luo, [facility] - 11/04/2021 2:49 PM EDT Images from the original note were not included. [facility] Department of Pharmacy Oncology Pharmacy [...] Each once daily. To test blood sugar Arpwqeytijiuj-Brglmumn-Vlhwcq (MULTIVITAMIN 50 PLUS) tab Take 1 tablet [...] of chemotherapy NA - Followed up with [facility] for delivery of Free Xtandi Readiness [...] patient Rubin Luo RPh documented in this encounterVeterans Health Administration04-21-2022 Miscellaneous Notes* Telephone Encounter - Aida Luo RPh - 11/04/2021 10:54 AM EDT Confirmed with [employer] approval date 11/01/21 and that the specialty pharmacy, [facility], will reach out to Mr Felix 3-5 business days from approval date. If he does not hear from them by 11/10/21 we should call [facility] @ option 2. I informed Mr Felix of this, he has an appt 11/12/21 and said if he has not heard from them by then he will get their phone number from us. Rubin Luo RPh documented in this encounterVeterans Health Administration04-19-2022 Miscellaneous Notes* Telephone Encounter - Jennifer Garcia [facility] - 11/02/2021 12:23 PM EDT Called pt, [...] him know to be expecting this call. [facility] will call patient to set up delivery for all fills. I do not see where he has had chemo education yet. Alba does he need to be set up with you? Thanks Rubin Luo RP * Telephone Encounter - Andreina Castillo RPh - 11/01/2021 10:55 AM EDT Patient called today. We completed a conference call with [employer] - they were ableto obtain [...] Monday night he will complete authorization. Rubin uLo RPh * Telephone Encounter - Brina Wang RPh - 10/28/2021 4:13 PM EDT No available funding at this time. We will proceed free drug application through [employer] Pharmacy to reach out to patient 10/29/2021 to notify. Brina Wang RPh * Telephone Encounter - Brina Wang RPh - 10/28/2021 3:08 PM EDT Ambulatory Pharmacy Prior Authorization Note Provider Intervention Required?: No- Pharmacy completed on your behalf. Drug: Xtandi Cover My Meds Carter: [id number] Determination: Approved Prior Authorization/Case #: [id number] Prior Authorization Expiration: 10/28/2022 Time to PA Submission in CMM: 15 min Time to PA Determination in CMM: Same day Additional Information: [employer] $3,111.12 For questions relating to this submission, please contact [facility] at [phone] documented in this encounterVeterans Health Administration04-19-2022 Miscellaneous Notes* Telephone Encounter - Zohra Avila PA-C - 11/02/2021 12:00 PM EDT CBC and CMP orders placed Zohra Avila PA-C * Telephone Encounter - Katie Rosen MA - 11/02/2021 11:57 AM EDT Patient has an appt on 11/11/21. Would you like labs, if so place orders. Katie Rosen MA documented in this encounterVeterans Health Administration04-18-2022 Miscellaneous Notes* Telephone Encounter - Clementine Aguilar [...] assistance program. RADHA Betancourt documented in this encounterVeterans Health Administration04-14-2022 Miscellaneous Notes* Telephone Encounter - Clementine Aguilar RN - 10/28/2021 1:12 PM EDT Voicemail message received from Sandra @ [facility]. Reports the pt's 1st dose of Lupron was given on 02/12/2018. Dr Esqueda notified. Clementine Aguilar RN * Telephone Encounter - Clementine Aguilar RN - 10/28/2021 12:[address] Esqueda requests that we contact Dr Scruggs' office for pt's Lupron start date. Call placed to [facility]. No answer. Message left requesting call back. Clementine Aguilar RN documented in this encounterVeterans Health Administration04-14-2022 Miscellaneous Notes* Telephone Encounter - Clementine Aguilar RN - 10/28/2021 1:12 PM EDT This encounter was opened in error. @[email or web address]@ documented in this encounterVeterans Health Administration04-11-2022 Miscellaneous Notes* Telephone Encounter - Christo Howard APRN.ALEXA - 10/25/2021 4:05 PM EDT Hold off for now. Christo Howard APRN.ALEXA * Telephone Encounter - Katie Rosen MA - 10/25/2021 11:01 AM EDT If patient needs labs, please sign/place orders for 10/28/21. Thanks. Katie Rosen MA documented in this encounterVeterans Health Administration01-01-2015 Evaluation note* Diagnosis Onset Date Resolution Status ASHD (arteriosclerotic heart disease) acute Cervical spondylosis acute Essential hypertension acute Hypercholesterolemia acute Malignant neoplasm of prostate July 17, 2014 acute Nonrheumatic aortic valve stenosis acute GRADY (obstructive sleep apnea) acute Type 2 diabetes mellitus with hyperglycemia acute [facility] Work Phone: Evaluation + Plan note Future Appointments Appointment Date:05/13/2022 08:45:00 AM Scheduled Provider:Anthony SCRUGGS MD Location:[facility] Appointment Type:URO Office Visit Diagnostic Tests Pending * PSA Total 11/08/21 Future Scheduled Tests Laboratory* Basic Metabolic Panel 09/20/21 [facility] evaluation + Plan note Future Appointments Appointment Date:10/28/2022 08:00:00 AM Scheduled Provider:Anthony SCRUGGS MD Location:[facility] Appointment Type:URO Office Visit Diagnostic Tests Pending * PSA Total 09/14/22 Future Scheduled Tests Laboratory* Basic Metabolic Panel 09/20/21 [facility] evaluation + Plan note Future Appointments Appointment Date:10/20/2023 08:45:00 AM Scheduled Provider:Anthony SCRUGGS MD Location:[facility] Appointment Type:URO Office Visit Diagnostic Tests Pending * PSA Total 04/17/23 [facility] evaluation + Plan note Future Appointments Appointment Date:04/19/2024 08:00:00 AM Scheduled Provider:Anthony SCRUGGS MD Location:[facility] Appointment Type:URO Office Visit Diagnostic Tests Pending * PSA Total 02/15/24 [facility] evaluation + Plan note Future Appointments Appointment Date:10/07/2024 09:15:00 AM Scheduled Provider:Anthony SCRUGGS MD Location:[facility] Appointment Type:URO Office Visit Diagnostic Tests Pending * PSA Total 08/17/24 [facility] evaluation note* Diagnosis OPENED IN ERROR- Primary To allow closing an encounter opened in error (used in SmartSet) [facility] Malignant neoplasm of prostate (HCC)- Primary Malignant neoplasm of prostate [facility] Diagnosis Malignant neoplasm of prostate (HCC)- Primary Malignant neoplasm of prostate [facility] Diagnosis Malignant neoplasm of prostate (HCC)- Primary Malignant neoplasm of prostate 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 [facility] Malignant neoplasm of prostate (HCC)- Primary Malignant neoplasm of prostate documented in this encounter [facility]* Diagnosis Malignant neoplasm of prostate (HCC)- Primary Malignant neoplasm of prostate 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 [facility] Diagnosis Malignant neoplasm of prostate (HCC)- Primary Malignant neoplasm of prostate [facility]* Diagnosis Malignant neoplasm of prostate (HCC)- Primary Malignant neoplasm of prostate [facility]* Diagnosis Malignant neoplasm of prostate (HCC)- Primary Malignant neoplasm of prostate [facility]* Diagnosis Malignant neoplasm of prostate (HCC)- Primary Malignant neoplasm of prostate [facility]* Diagnosis Malignant neoplasm of prostate (HCC)- Primary Malignant neoplasm of prostate 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, unspecified vessel or lesion type Essential hypertension Unspecified essential hypertension Type 2 diabetes mellitus without complication, without long-term current use of insulin (HCC) [facility]* Diagnosis Malignant neoplasm of prostate (HCC)- Primary Malignant neoplasm of prostate [facility]* Diagnosis Malignant neoplasm of prostate (HCC)- Primary Malignant neoplasm of prostate [facility]* Diagnosis Malignant neoplasm of prostate (HCC)- Primary Malignant neoplasm of prostate 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, unspecified vessel or lesion type Essential hypertension Unspecified essential hypertension Type 2 diabetes mellitus without complication, without long-term current use of insulin (HCC) [facility]* Diagnosis Neoplasm of unspecified behavior of bone, soft tissue, and skin Actinic keratosis [facility]* Diagnosis Malignant neoplasm of prostate (HCC)- Primary Malignant neoplasm of prostate [facility]* Diagnosis Malignant neoplasm of prostate (HCC)- Primary Malignant neoplasm of prostate Essential hypertension Unspecified essential hypertension 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, unspecified vessel or lesion type Type 2 diabetes mellitus without complication, without long-term current use of insulin (HCC) Lesion of skin of right ear Abdominal discomfort Abdominal pain, unspecified site documented in this encounter [facility] note* Diagnosis Onset Date Resolution Status Cervical spondylosis acute Mass of skin of left shoulder acute Primary osteoarthritis, right shoulder acute Shoulder pain, right acute Neck pain noneactive ASHD (arteriosclerotic heart disease) acute Essential hypertension acute Hypercholesterolemia acute Malignant neoplasm of prostate July 17, 2014 acute Nonrheumatic aortic valve stenosis acute GRADY (obstructive sleep apnea) acute Type 2 diabetes mellitus with hyperglycemia acute [facility] Work Phone: Evaluation note* Diagnosis Malignant neoplasm of prostate (HCC)- Primary Malignant neoplasm of prostate documented in this encounter [facility] note* Diagnosis Malignant neoplasm of prostate (HCC)- Primary Malignant neoplasm of prostate documented in this encounter [facility] note* Diagnosis Malignant neoplasm of prostate (HCC)- Primary Malignant neoplasm of prostate documented in this encounter [facility] note* Diagnosis Malignant neoplasm of prostate (HCC)- Primary Malignant neoplasm of prostate documented in this encounter [facility] note* Diagnosis Malignant neoplasm of prostate (HCC)- Primary Malignant neoplasm of prostate Essential hypertension Unspecified essential hypertension 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, unspecified vessel or lesion type Type 2 diabetes mellitus without complication, without long-term current use of insulin (HCC) documented in this encounter [facility] general Narrative - Reported* Type Description [...] [place] 08/2015 Hospitalization History see surgical hx [employer] Other History general Narrative - Reported* Type [...] [place] 08/2015 Hospitalization History see surgical hx [facility] Other Hospital course Narrative No data available for this section [facility] progress note No data available for this section [facility] Medications Administered Section Inactive Administered [...] To Contact Diagnoses Actinic keratosis 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, 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[employer] [address] [place] [address] Referral ID Status Reason Start Date Expiration Date V isits Requested Visits Authorized [id number] Pending Review 1 1 Reason *FU 06/06 Right fr ontal sinus mass and cerumen impaction Diagnosis 1 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) Diagnosis 2 Impacted cerumen of right ear (H61.21) Referral Organization [facility] Thony lizama Referring Provider First Name Jamar Referring Provider Last Name Juan David Referring Provider Specialty Internal Me dicine Referred Organization [facility] Referred Provider Emelina Louis Referred Address ,[place], [place],[address] Referred Provider Specialty Ear, Nose an d [...] or prosecute any alcohol or drug abuse patient.[facility] AdministrationIn the event this information is protected by the Federal Confidentiality of Alcohol and Drug Abuse Patient Records regulations: The Federal rules restrict any use of the information to criminally investigate or prosecute any alcohol or drug abuse patient.[facility] AdministrationIn the event this information is protected by the Federal Confidentiality of Alcohol and Drug Abuse Patient Records regulations: The Federal rules restrict any use of the information to criminally investigate or prosecute any alcohol or drug abuse patient.[facility] AdministrationIn the event this information is protected by the Federal Confidentiality of Alcohol and Drug Abuse Patient Records regulations: The Federal rules restrict any use of the information to criminally investigate or prosecute any alcohol or drug abuse patient.[facility] AdministrationIn the event this information is protected by the Federal Confidentiality of Alcohol and Drug Abuse Patient Records regulations: The Federal rules restrict any use of the information to criminally investigate or prosecute any alcohol or drug abuse patient.[facility] AdministrationIn the event this information is protected by the Federal Confidentiality of Alcohol and Drug Abuse Patient Records regulations: The Federal rules restrict any use of the information to criminally investigate or prosecute any alcohol or drug abuse patient.[facility] AdministrationIn the event this information is protected by the Federal Confidentiality of Alcohol and Drug Abuse Patient Records regulations: The Federal rules restrict any use of the information to criminally investigate or prosecute any alcohol or drug abuse patient.[facility] AdministrationIn the event this information is protected by the Federal Confidentiality of Alcohol and Drug Abuse Patient Records regulations: The Federal rules restrict any use of the information to criminally investigate or prosecute any alcohol or drug abuse patient.[facility] AdministrationIn the event this information is protected by the Federal Confidentiality of Alcohol and Drug Abuse Patient Records regulations: The Federal rules restrict any use of the information to criminally investigate or prosecute any alcohol or drug abuse patient.[facility] AdministrationIn the event this information is protected by the Federal Confidentiality of Alcohol and Drug Abuse Patient Records regulations: The Federal rules restrict any use of the information to criminally investigate or prosecute any alcohol or drug abuse patient.[facility] AdministrationIn the event this information is protected by the Federal Confidentiality of Alcohol and Drug Abuse Patient Records regulations: The Federal rules restrict any use of the information to criminally investigate or prosecute any alcohol or drug abuse patient.[facility] AdministrationIn the event this information is protected by the Federal Confidentiality of Alcohol and Drug Abuse Patient Records regulations: The Federal rules restrict any use of the information to criminally investigate or prosecute any alcohol or drug abuse patient.[facility] AdministrationIn the event this information is protected by the Federal Confidentiality of Alcohol and Drug Abuse Patient Records regulations: The Federal rules restrict any use of the information to criminally investigate or prosecute any alcohol or drug abuse patient.[facility] AdministrationIn the event this information is protected by the Federal Confidentiality of Alcohol and Drug Abuse Patient Records regulations: The Federal rules restrict any use of the information to criminally investigate or prosecute any alcohol or drug abuse patient.[facility] AdministrationIn the event this information is protected by the Federal Confidentiality of Alcohol and Drug Abuse Patient Records regulations: The Federal rules restrict any use of the information to criminally investigate or prosecute any alcohol or drug abuse patient.[facility] AdministrationIn the event this information is protected by the Federal Confidentiality of Alcohol and Drug Abuse Patient Records regulations: The Federal rules restrict any use of the information to criminally investigate or prosecute any alcohol or drug abuse patient.[facility] AdministrationIn the event this information is protected by the Federal Confidentiality of Alcohol and Drug Abuse Patient Records regulations: The Federal rules restrict any use of the information to criminally investigate or prosecute any alcohol or drug abuse patient.[facility] AdministrationIn the event this information is protected by the Federal Confidentiality of Alcohol and Drug Abuse Patient Records regulations: The Federal rules restrict any use of the information to criminally investigate or prosecute any alcohol or drug abuse patient.[facility] AdministrationIn the event this information is protected by the Federal Confidentiality of Alcohol and Drug Abuse Patient Records regulations: The Federal rules restrict any use of the information to criminally investigate or prosecute any alcohol or drug abuse patient.[facility] AdministrationIn the event this information is protected by the Federal Confidentiality of Alcohol and Drug Abuse Patient Records regulations: The Federal rules restrict any use of the information to criminally investigate or prosecute any alcohol or drug abuse patient.[facility] AdministrationIn the event this information is protected by the Federal Confidentiality of Alcohol and Drug Abuse Patient Records regulations: The Federal rules restrict any use of the information to criminally investigate or prosecute any alcohol or drug abuse patient.[facility] AdministrationIn the event this information is protected by the Federal Confidentiality of Alcohol and Drug Abuse Patient Records regulations: The Federal rules restrict any use of the information to criminally investigate or prosecute any alcohol or drug abuse patient.[facility] AdministrationIn the event this information is protected by the Federal Confidentiality of Alcohol and Drug Abuse Patient Records regulations: The Federal rules restrict any use of the information to criminally investigate or prosecute any alcohol or drug abuse patient.[facility] AdministrationIn the event this information is protected by the Federal Confidentiality of Alcohol and Drug Abuse Patient Records regulations: The Federal rules restrict any use of the information to criminally investigate or prosecute any alcohol or drug abuse patient.[facility] AdministrationIn the event this information is protected by the Federal Confidentiality of Alcohol and Drug Abuse Patient Records regulations: The Federal rules restrict any use of the information to criminally investigate or prosecute any alcohol or drug abuse patient.[facility] AdministrationIn the event this information is protected by the Federal Confidentiality of Alcohol and Drug Abuse Patient Records regulations: The Federal rules restrict any use of the information to criminally investigate or prosecute any alcohol or drug abuse patient.[facility] AdministrationIn the event this information is protected by the Federal Confidentiality of Alcohol and Drug Abuse Patient Records regulations: The Federal rules restrict any use of the information to criminally investigate or prosecute any alcohol or drug abuse patient.[facility] AdministrationIn the event this information is protected by the Federal Confidentiality of Alcohol and Drug Abuse Patient Records regulations: The Federal rules restrict any use of the information to criminally investigate or prosecute any alcohol or drug abuse patient.[facility] AdministrationIn the event this information is protected by the Federal Confidentiality of Alcohol and Drug Abuse Patient Records regulations: The Federal rules restrict any use of the information to criminally investigate or prosecute any alcohol or drug abuse patient.[facility] AdministrationIn the event this information is protected by the Federal Confidentiality of Alcohol and Drug Abuse Patient Records regulations: The Federal rules restrict any use of the information to criminally investigate or prosecute any alcohol or drug abuse patient.[facility] AdministrationIn the event this information is protected by the Federal Confidentiality of Alcohol and Drug Abuse Patient Records regulations: The Federal rules restrict any use of the information to criminally investigate or prosecute any alcohol or drug abuse patient.[facility] AdministrationIn the event this information is protected by the Federal Confidentiality of Alcohol and Drug Abuse Patient Records regulations: The Federal rules restrict any use of the information to criminally investigate or prosecute any alcohol or drug abuse patient.[facility] AdministrationIn the event this information is protected by the Federal Confidentiality of Alcohol and Drug Abuse Patient Records regulations: The Federal rules restrict any use of the information to criminally investigate or prosecute any alcohol or drug abuse patient.[facility] AdministrationIn the event this information is protected by the Federal Confidentiality of Alcohol and Drug Abuse Patient Records regulations: The Federal rules restrict any use of the information to criminally investigate or prosecute any alcohol or drug abuse patient.[facility] AdministrationIn the event this information is protected by the Federal Confidentiality of Alcohol and Drug Abuse Patient Records regulations: The Federal rules restrict any use of the information to criminally investigate or prosecute any alcohol or drug abuse patient.[facility] AdministrationIn the event this information is protected by the Federal Confidentiality of Alcohol and Drug Abuse Patient Records regulations: The Federal rules restrict any use of the information to criminally investigate or prosecute any alcohol or drug abuse patient.[facility] AdministrationIn the event this information is protected by the Federal Confidentiality of Alcohol and Drug Abuse Patient Records regulations: The Federal rules restrict any use of the information to criminally investigate or prosecute any alcohol or drug abuse patient.[facility] AdministrationIn the event this information is protected by the Federal Confidentiality of Alcohol and Drug Abuse Patient Records regulations: The Federal rules restrict any use of the information to criminally investigate or prosecute any alcohol or drug abuse patient.[facility] Care Teams (unrecognized sec tion and content) Jewelry Sales Representative Relationship Specialty Start Date End Date Jamar Fall, DO PCP - General Internal Medicine 08/04/14 Jewelry Sales Representative Relationship Specialty Start Date End Date Jamar Fall, DO PCP - General Internal Medicine 08/04/14 Jewelry Sales Representative Relationship Specialty Start Date End Date Jamar Fall, DO PCP - General Internal Medicine 08/04/14 Jewelry Sales Representative Relationship Specialty Start Date End Date Jamar Fall, DO PCP - General Internal Medicine 08/04/14 Marco A Esqueda MD [address] [place] [address] Physician Hematology/Oncology 11/02/21 Christo Howard APRN.[employer] [address] [place] [address] Nurse Practitioner Hematology/Oncology 11/02/21 Clementine Aguilar, ANITHA [address] [place] [address] Specialty Advertising Sales Associate Hematology/Oncology 11/02/21 Jewelry Sales Representative Relationship Specialty Start Date End Date Jamar Fall, DO PCP - General Internal Medicine 08/04/14 Marco A Esqueda MD [address] [place] [address] Physician Hematology/Oncology 11/02/21 Christo Howard, AVIATION MEDICINE SPECIALIST.[employer] [address] [place] [address] Nurse Practitioner Hematology/Oncology 11/02/21 Clementine Aguilar, RN [address] [place] [address] Specialty Advertising Sales Associate Hematology/Oncology 11/02/21 Jewelry Sales Representative Relationship Specialty Start Date End Date Jamar Fall, DO PCP - General Internal Medicine 08/04/14 Marco A Esqueda MD [address] [place] [address] Physician Hematology/Oncology 11/02/21 Christo Howard, AVIATION MEDICINE SPECIALIST.[employer] [address] [place] [address] Nurse Practitioner Hematology/Oncology 11/02/21 Clementine Aguilar, RN [address] [place] [address] Specialty Advertising Sales Associate Hematology/Oncology 11/02/21 Jewelry Sales Representative Relationship Specialty Start Date End Date Jamar Fall, DO PCP - General Internal Medicine 08/04/14 Marco A Esqueda MD [address] [place] [address] Physician Hematology/Oncology 11/02/21 Christo Howard, AVIATION MEDICINE SPECIALIST.[employer] [address] [place] [address] Nurse Practitioner Hematology/Oncology 11/02/21 Clementine Aguilar, RN [address] [place] [address] Specialty Advertising Sales Associate Hematology/Oncology 11/02/21 Jewelry Sales Representative Relationship Specialty Start Date End Date Jamar Fall, DO PCP - General Internal Medicine 08/04/14 Marco A Esqueda MD [address] [place] [address] Physician Hematology/Oncology 11/02/21 Christo Howard, AVIATION MEDICINE SPECIALIST.[employer] [address] [place] [address] Nurse Practitioner Hematology/Oncology 11/02/21 Clementine Aguilar, ANITHA [address] [place] [address] Specialty Advertising Sales Associate Hematology/Oncology 11/02/21 Jewelry Sales Representative Relationship Specialty Start Date End Date Jamar Fall, DO PCP - General Internal Medicine 08/04/14 Marco A Esqueda MD [address] [place] [address] Physician Hematology/Oncology 11/02/21 Christo Howard, AVIATION MEDICINE SPECIALIST.[employer] [address] [place] [address] Nurse Practitioner Hematology/Oncology 11/02/21 Clementine Aguilar, ANITHA [address] [place] [address] Specialty Advertising Sales Associate Hematology/Oncology 11/02/21 Jewelry Sales Representative Relationship Specialty Start Date End Date Jamar Fall, DO PCP - General Internal Medicine 08/04/14 Marco A Esqueda MD [address] [place] [address] Physician Hematology/Oncology 11/02/21 Christo Howard, AVIATION MEDICINE SPECIALIST.[employer] [address] [place] [address] Nurse Practitioner Hematology/Oncology 11/02/21 Clementine Aguilar, RN [address] [place] [address] Specialty Advertising Sales Associate Hematology/Oncology 11/02/21 Jewelry Sales Representative Relationship Specialty Start Date End Date Jamar Fall, DO PCP - General Internal Medicine 08/04/14 Marco A Esqueda MD [address] [place] [address] Physician Hematology/Oncology 11/02/21 Christo Howard, AVIATION MEDICINE SPECIALIST.[employer] [address] [place] [address] Nurse Practitioner Hematology/Oncology 11/02/21 Clementine Aguilar, ANITHA [address] [place] [address] Specialty Advertising Sales Associate Hematology/Oncology 11/02/21 Jewelry Sales Representative Relationship Specialty Start Date End Date Jamar Fall, DO PCP - General Internal Medicine 08/04/14 Marco A Esqueda MD [address] [place] [address] Physician Hematology/Oncology 11/02/21 Christo Howard, AVIATION MEDICINE SPECIALIST.[employer] [address] [place] [address] Nurse Practitioner Hematology/Oncology 11/02/21 Clementine Aguilar, RN [address] [place] [address] Specialty Advertising Sales Associate Hematology/Oncology 11/02/21 Jewelry Sales Representative Relationship Specialty Start Date End Date Jamar Fall, DO PCP - General Internal Medicine 08/04/14 Marco A Esqueda MD [address] [place] [address] Physician Hematology/Oncology 11/02/21 Christo Howard, AVIATION MEDICINE SPECIALIST.[employer] [address] [place] [address] Nurse Practitioner Hematology/Oncology 11/02/21 Clementine Aguilar, ANITHA [address] [place] [address] Specialty Advertising Sales Associate Hematology/Oncology 11/02/21 Jewelry Sales Representative Relationship Specialty Start Date End Date Jamar Fall, DO PCP - General Internal Medicine 08/04/14 Marco A Esqueda MD [address] [place] [address] Physician Hematology/Oncology 11/02/21 Christo Howard, AVIATION MEDICINE SPECIALIST.[employer] [address] [place] [address] Nurse Practitioner Hematology/Oncology 11/02/21 Clementine Aguilar, RN [address] [place] [address] Specialty Advertising Sales Associate Hematology/Oncology 11/02/21 Jewelry Sales Representative Relationship Specialty Start Date End Date Jamar Fall, DO PCP - General Internal Medicine 08/04/14 Marco A Esqueda MD [address] [place] [address] Physician Hematology/Oncology 11/02/21 Christo Howard, AVIATION MEDICINE SPECIALIST.[employer] [address] [place] [address] Nurse Practitioner Hematology/Oncology 11/02/21 Clementine Aguilar, ANITHA [address] [place] [address] Specialty Advertising Sales Associate Hematology/Oncology 11/02/21 Jewelry Sales Representative Relationship Specialty Start Date End Date Jamar Fall DO PCP - General Internal Medicine 08/04/14 Marco A Esqueda MD [address] [place] [address] Physician Hematology/Oncology 11/02/21 Christo Howard, AVIATION MEDICINE SPECIALIST.[employer] [address] [place] [address] [place] [address] Nurse Practitioner Hematology/Oncology 11/02/21 Clementine Aguilar, ANITHA [address] [place] [address] [place] [address] Specialty Advertising Sales Associate Hematology/Oncology 11/02/21 Jewelry Sales Representative Relationship Specialty Start Date End Date Jamar Fall DO PCP - General Internal Medicine 08/04/14 Marco A Esqueda MD [address] [place] [address] [place] [address] Physician Hematology/Oncology 11/02/21 Christo Howard, AVIATION MEDICINE SPECIALIST.[employer] [address] [place] [address] [place] [address] Nurse Practitioner Hematology/Oncology 11/02/21 Clementine Aguilar, RN [address] [place] [address] Specialty Advertising Sales Associate Hematology/Oncology 11/02/21 Jewelry Sales Representative Relationship Specialty Start Date End Date Jamar Fall DO PCP - General Internal Medicine 08/04/14 Marco A Esqueda MD [address] [place] [address] Physician Hematology/Oncology 11/02/21 Christo Howard, AVIATION MEDICINE SPECIALIST.[employer] [address] [place] [address] Nurse Practitioner Hematology/Oncology 11/02/21 Clementine Aguilar, ANITHA [address] [facility] [address] Specialty Advertising Sales Associate Hematology/Oncology 11/02/21 Jewelry Sales Representative Relationship Specialty Start Date End Date Jamar Fall DO PCP - General Internal Medicine 08/04/14 Marco A Esqueda MD [address] [place] [address] Physician Hematology/Oncology 11/02/21 Christo Howard, AVIATION MEDICINE SPECIALIST.[employer] [address] [place] [address] Nurse Practitioner Hematology/Oncology 11/02/21 Clementine Aguilar, ANITHA [address] [facility] [place] [address] Specialty Advertising Sales Associate Hematology/Oncology 11/02/21 Jewelry Sales Representative Relationship Specialty Start Date End Date Jamar Fall DO PCP - General Internal Medicine 08/04/14 Marco A Esqueda MD [address] [place] [address] Physician Hematology/Oncology 11/02/21 Christo Howard, AVIATION MEDICINE SPECIALIST.[employer] [address] [place] [address] Nurse Practitioner Hematology/Oncology 11/02/21 Clementine Aguilar, ANITHA [address] [place] [address] Specialty Advertising Sales Associate Hematology/Oncology 11/02/21 Jewelry Sales Representative Relationship Specialty Start Date End Date Jamar Fall MD [address] [place] [id number] PCP - General Internal Medicine 05/31/23 Jewelry Sales Representative Relationship Specialty Start Date End Date Jamar Fall MD [address] [place] [address] PCP - General Internal Medicine 05/31/23 Jewelry Sales Representative Relationship Specialty Start Date End Date Jamar Fall DO PCP - General Internal Medicine 08/04/14 Marco A Esqueda MD [address] [place] [address] [place] [address] Physician Hematology/Oncology 11/02/21 Christo Howard, AVIATION MEDICINE SPECIALIST.[employer] [address] [place] [address] Nurse Practitioner Hematology/Oncology 11/02/21 Clementine Aguilar, ANITHA [address] [place] [address] Specialty Advertising Sales Associate Hematology/Oncology 11/02/21 Jewelry Sales Representative Relationship Specialty Start Date End Date Jamar Fall DO PCP - General Internal Medicine 08/04/14 Marco A Esqueda MD [address] [place] [address] [address] [place], [place] [id number] Physician Hematology/Oncology 11/02/21 Christo Howard APRN.[employer] [address] [place] [address] Nurse Practitioner Hematology/Oncology 11/02/21 Clementine Aguilar, ANITHA [address] [place] [address] Specialty Advertising Sales Associate Hematology/Oncology 11/02/21 Team Status: Active Member Role [...] 2023 Team Status: Active Member Role Status Sundar Fall DO Primary Care Provide r, Attending Provider Active Start: October 30, 2023 Team Status: Inactive Member Role Status Dates Jamar Fall DO Primary Care Provide r, Attending Provider Active Start: November 23, 2023 End: November 23, 2023 Jewelry Sales Representative Relationship Specialty Start Date End Date Jamar Fall DO PCP - General Internal Medicine 08/04/14 Marco A Esqueda MD [address] [place] [address] [place] [address] Physician Hematology/Oncology 11/02/21 Christo Howard, AVIATION MEDICINE SPECIALIST.[employer] [address] [place] [address] Nurse Practitioner Hematology/Oncology 11/02/21 Clementine Aguilar, ANITHA [address] [place] [address] Specialty Advertising Sales Associate Hematology/Oncology 11/02/21 Jewelry Sales Representative Relationship Specialty Start Date End Date Jamar Fall DO PCP - General Internal Medicine 08/04/14 Marco A Esqueda MD [facility] [place] [address] Physician Hematology/Oncology 11/02/21 Christo Howard, AVIATION MEDICINE SPECIALIST.[employer] [address] [place] [address] Nurse Practitioner Hematology/Oncology 11/02/21 Clementine Aguilar, ANITHA [address] [place] [address] Specialty Advertising Sales Associate Hematology/Oncology 11/02/21 Team Status: Active Member Role Status Dates Jamar Fall DO Primary Care Provider Active Start: January 25, 2024 SAMAN Collins Attending Provider Active Start: January 25, 2024 Team Status: Inactive Member Role Status Dates Jamar Fall DO Primary Care Jose lee Attending Provider Active Start: March 26, 2024 End: March 26, 2024 Jewelry Sales Representative Relationship Specialty Start Date End Date Jamar Fall DO PCP - General Internal Medicine 08/04/14 Marco A Esqueda MD [address] [place] [address] Physician Hematology/Oncology 11/02/21 Christo Howard, AVIATION MEDICINE SPECIALIST.[employer] [address] [place] [address] Nurse Practitioner Hematology/Oncology 11/02/21 Clementine Aguilar, ANITHA [address] [place] [address] Specialty Advertising Sales Associate Hematology/Oncology 11/02/21 Jewelry Sales Representative Relationship Specialty Start Date End Date Jamar Fall DO PCP - General Internal Medicine 08/04/14 Marco A Esqueda MD [address] [place] [address] Physician Hematology/Oncology 11/02/21 Christo Howard, AVIATION MEDICINE SPECIALIST.[employer] [address] [place] [address] Nurse Practitioner Hematology/Oncology 11/02/21 Clementine Aguilar, ANITHA [address] [place] [address] Specialty Advertising Sales Associate Hematology/Oncology 11/02/21 Jewelry Sales Representative Relationship Specialty Start Date End Date Jamar Fall DO PCP - General Internal Medicine 08/04/14 Marco A Esqueda MD [address] [place] [address] Physician Hematology/Oncology 11/02/21 Christo Howard, AVIATION MEDICINE SPECIALIST.[employer] [address] [place] [address] Nurse Practitioner Hematology/Oncology 11/02/21 Clementine Aguilar, RN [address] [place] [address] [place] [address] Specialty Advertising Sales Associate Hematology/Oncology 11/02/21 Jewelry Sales Representative Relationship Specialty Start Date End Date Jamar Fall DO PCP - General Internal Medicine 08/04/14 Marco A Esqueda MD [address] [place] [address] [place] [address] Physician Hematology/Oncology 11/02/21 Christo Howard APRN.[employer] [address] [place] [address] [place] [address] Nurse Practitioner Hematology/Oncology 11/02/21 Clementine Aguilar, ANITHA [address] [place] [address] [place] [address] Specialty Advertising Sales Associate Hematology/Oncology 11/02/21 Reason for Visit (unrecogniz ed [...] up Specialty Diagnoses / Procedures Referred By Jeffery t Referred To Contact Diagnoses Malignant neoplasm of prostate (HCC) Procedures DENOSUMAB INJECTION Marco A Esqueda MD [address] [place] [address] [place] [address] Himanshu Treat Ariella [address] [place] [place] [address] Referral ID Status Reason Start Date Expiration Date V isits Requested Visits Authorized [id number] Authorized 11/11/2021 07/16/2022 99 99 Reason Comments [...] R ear Marco A Esqueda MD [address] [place] [address] Lety Holguin MD [address] [facility] [address] [place] [address] Referral ID Status Reason Start Date Expiration Date Visits Re quested Visits Authorized [id number] Closed 08/04/2023 01/31/2024 1 1 Reason Comments [...] content) DATE CREATED AUTHOR 10/31/2022 [facility] DATE CREATED AUTHOR AUTHOR'S ORGANIZ ATION 03/02/[address] [facility] DATE CREATED AUTHOR AUTHOR'S ORGANIZ ATION 04/02/2024 [facility] DATE CREATED AUTHOR AUTHOR'S ORGANIZ ATION 04/21/2024 [facility] DATE CREATED AUTHOR AUTHOR'S ORGANIZ ATION 08/10/2024 [facility] Inactive Administered Medications - up to [...] BE BASED ON THE PRIMARY CLINICAL RECORDS. [facility] [employer] [facility]. provides no warranty or guarantee of the accuracy or completeness of information in this document.
[2024-09-03 09:05] VITALS: BP 158/70; BP 163/70; PULSE 55; PULSE 60; O2SAT 99
[2024-09-03] MEDS: 0.9 % SODIUM CHLORIDE 10 ML SYRINGE - SALINE FLUSH 2 ML INJ (09:16)
[2024-09-03] MEDS: DEXAMETHASONE SOD PHOS 10 MG/ML VIAL INJ (09:17)
[2024-09-03] MEDS: BUPIVACAINE HCL 0.25% PF 25 MG/10 ML VIAL 2 ML INJ (09:17)
[2024-09-03] MEDS: IOHEXOL 240 MG/ML - 10 ML VIAL 24 MG INJ (09:18)
[2024-09-03] MEDS: LIDOCAINE HCL 2% 400 MG/20 ML MDV 4 ML INJ (09:18)
--- NOTE | 2024-09-03 09:43 | P.ON_ITS ---
Date of procedure: 09/03/24 Pre-op diagnosis: Cervical stenosis Post-op diagnosis: same as pre-op Procedure: Cervical 7/Thoracic 1 Epidural Steroid Injection Under fluoroscopic guidance Immediate complications none Solution used for injection: Marcaine 0.25% 2mL, 2cc Normal saline, Dexame thasone 10mg Omnipaque 3 mL Anesthesia local 2% lidocaine up to 4ml Timeout process compliant After informed consent obtained. Patient brought to the procedure room placed in the prone position. Skin overlying the area was prepped and draped in a sterile fashion using betadine. 25 gauge needle used to raise a skin wheel with local anesthetic over the target area identified under fluoroscopy. A 17 gauge Touhy needle Was inserted over the anesthetized area and directed towards the inter- space under fluoroscopic guidance. Epidural space was identified with loss of resistance technique to air. Needle Tip placement confirmed with injection of contrast solution in both AP and Lateral views. Steroid solution was then injected. Anesthesia: Local Surgeon: Nina Arriaga Condition: stable
== END 2024-09-03 09:15 | disposition home or self-care (01) ==
LOC: SURGOUT 07:55
PROVIDERS: PCP Internal Medicine; Visit Provider Anesthesiology Pain Medicine
DX: M54.12 Radiculopathy, cervical region (principal); E11.9 Type 2 diabetes mellitus without complications; Z79.84 Long term (current) use of oral hypoglycemic drugs
CPT/HCPCS: 36415; 62321; 82948; J0665; J1100; Q9966

== ENCOUNTER 2024-09-12 09:21 | Outpatient (OUT) | payer MEDICARE, OTHER, SELFPAY ==
--- OUTSIDE RECORDS SUMMARY | 2024-09-12 09:37 | XMS_ITS | CCD ---
Author Organization [facility] Care Team Providers Care Plastics Technician Name Role Phone Jamar Fall DO Primary Care Provider Marco A Esqueda MD R Unavailable Anita 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.ALEXA, Christo Unavailable Lauren WELSH, Clementine Unavailable [phone] JAMAR FALL Primary Care Physician Jamar Fall DO Primary Care Provider Marco A Esqueda MD R Unavailable Anita 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.Cary LIUy Unavailable [phone] Lauren WELSH, Clementine Unavailable Jamar Fall DO Primary Care Provider Dheeraj JAMES, Marco A R Unavailable Anita 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.ALEXA Christo Unavailable [phone] Lauren WELSH, Clementine Unavailable Jamar Fall Unavailable [...] Consulting Unavailable FEDE DE JESUS Consulting Unavailable UMANA, LUIZ Consulting Unavailable TAMEKA, LORA Admitting Unavailable TAMEKAIRINALORA Attending Unavailable JUAN DAVID, DR ALCARAZ Primary [...] Attending Unavailable MARCO A ESQUEDA Referring Unavailable TIMUDAY, EMELINA Craig Attending Unavailable BALL, JAMAR E Referring Unavailable PABLO CHRISTINA Attending Unavailable TOM, LONG Galo Attending Unavailable ALEXIA FRANCO Attending Unavailable ELTARODNEY, BRIDGER Attending Unavailable LORA ENGLISH Attending Unavailable Anthony SCRUGGS Attending Unavailable SCRUGGS, Anthony Lee Attending Unavailable Anthony SCRUGGS Attending Unavailable BALL, JAMAR E Primary Care Unavailable BALL, JAMAR E Primary Care Unavailable MARCO A ESQUEDA R Referring Unavailable ANITA, CHRISTO Attending Unavailable BALL, JAMAR E Primary Care Unavailable MARCO A ESQUEDA R Referring Unavailable BALL, JAMAR E Primary Care Unavailable BALL, JAMAR E Primary Care Unavailable DHEERAJ, MARCO A R Referring Unavailable DHEERAJ, MARCO A R Referring Unavailable ANITA, CHRISTO Attending Unavailable BALL, JAMAR E Primary Care [...] Care Unavailable MARCO A ESQUEDA Referring Unavailable LYNNE ALARCON Attending Unavailable Allergies Allergy Classification Reported Allergen(s) Allergy Type Date of Onset Reaction(s) Facility (18 sources) Penicillins; Translations: [PENICILLINS] Drug Allergy 1 Unknown [facility] (20 sources) Penicillin G; Translations: [penicillin G benzathine] Drug Allergy 1 Unknown (qualifier value) [facility] (20 sources) Penicillins Drug Allergy 5 Unknown [facility] (20 sources) Simvastatin; Translations: [SIMVASTATIN] Drug Allergy 2 Unknown [facility] (1 source) Penicillins Drug allergy (disorder) 5 [facility] (1 source) Penicillin Drug Allergy Unknown [facility] Other (1 source) Allergies Reconciled Propensity to adverse reactions Unknown [facility] Other (1 source) patient allergy list reviewed by nurse or physicia Propensity to adverse reactions 9 Comment:Done [facility] Other (3 sources) Simvastatin Propensity to adverse reactions 2 [facility] Medications Current Medications Medication Drug Class(es) Dates Sig (Normalized) Sig (Original) Aspir-81 81 MG (20 sources) take 1 tablet by mouth once daily Aspir-81 81 MG 1 tablet Orally Once a day Active aspirin 81 mg delayed release oral tablet (20 sources) Platelet Aggregation Inhibitor, Nonsteroidal Anti-inflammatory Drug Start: 09-08-2023 take 1 tablet by mouth once daily Aspirin 81 mg tablet,delayed release (DR/EC) Active 81 MG PO Daily September 08, 2023 12:00am Start: 02-04-2019 take 1 mg by mouth once daily aspirin 81 mg oral tablet mg tab(s), Oral, Daily, Refills(s) 0 Start Date: 02/04/19 Status: Ordered Comment on above: Take 81 mg by mouth once daily. atorvastatin 40 mg oral tablet (20 sources) HMG-CoA Reductase Inhibitor Start: take 1 tablet by mouth once daily in the evening Atorvastatin 40 mg tablet Active 0 .ROUTE .COMPLEX September 01, 2024 8:43am TAKE 1 TABLET BY MOUTH ONCE EVERY EVENING Start: 09-08-2023 End: 09-01-2024 take 1 tablet by mouth once daily Atorvastatin 40 mg tablet Discontinued 40 MG PO Daily September 08, 2023 2:49pm September 01, 2024 8:43am Start: 09-06-2023 End: 09-08-2023 take 1 tablet by mouth once daily in the evening Atorvastatin 40 mg tablet Discontinued 0 .ROUTE .COMPLEX 90 September 06, 2023 8:32am September 08, 2023 2:51pm TAKE 1 TABLET BY MOUTH ONCE EVERY EVENING Start: 04-17-2023 End: 09-06-2023 take 1 tablet by mouth once daily in the evening Atorvastatin 40 mg tablet Discontinued 40 MG PO Every evening September 06, 2023 12:00am September 06, 2023 8:32am Start: 02-04-2019 take 1 tablet by anupama [...] on above: Take 2 tablets by mo [facility] once daily. Contour Next - (20 sources) [...] mg oral tablet (20 sources) Sulfonylurea Start: 08-02-2024 take 0.5 tablet by mouth once daily at breakfast Glimepiride 1 mg tablet Active 0 .ROUTE .COMPLEX August 02, 2024 2:03pm TAKE 1/2 TABLET BY MOUTH DAILY 30 MINUTES PRIOR TO BREAKFAST Start: 09-08-2023 End: 08-02-2024 take 0.5 mg by mouth once daily Glimepiride 1 mg table t Discontinued 0.5 MG PO Daily September 08, 2023 12:00am August 02, 2024 2:03pm Start: 09-08-2023 take 0.5 mg by mouth once kristi y Glimepiride Active 0.5 MG PO Daily September [...] by mouth once daily Lisinopril-Hyd rochlorothiazi de 20-12.5 mg tablet Active 0 .ROUTE .COMPLEX 90 October 12, 2023 8:34am TAKE 1 TABLET BY MOUTH EVERY DAY Start: 02-04-2019 End: 10-12-2023 take 1 tablet by mouth once daily Lisinopril-Hydrochlorothiazide 20-12.5 m g tablet Discontinued 1 TAB PO Daily September 08, 2023 12:00am October 12, 2023 8:34am take 1 tablet by anupama th in [...] Anticholinergic Start: 10-20-2023 ipratropium Nasal 0.06% [place] Refill(s) 0 Start Date: 10/20/23 Status: Ordered [...] mg oral tablet (20 sources) Biguanide Start: 07-31-2024 take 2 tablets by mouth once daily at mealtime Metformin 500 mg tablet Active 0 .ROUTE .COMPLEX 180 July 31, 2024 7:39am TAKE 2 TABLETS BY MOUTH DAILY WITH FOOD 90 Start: 09-08-2023 End: 07-31-2024 take 2 tablets by mouth once daily Metformin 500 mg tablet Discontinued 1000 MG PO Daily September 08, 2023 12:00am July 31, 2024 7:39am Start: 09-08-2023 take 1000 mg by mouth once benjamín ly Metformin Active 1000 MG PO Daily September 08, 2023 1:00am Start: 08-17-2021 take 1 tablet by anupama th once daily metFORMIN (GLUCOPHAGE) 1,000 mg tablet Take 1,000 mg by mouth once daily. 08/17/2021 Active Start: 08-17-2021 take 2 tablets by mo [facility] once daily at mealtime metFORMIN [...] on above: TAKE 2 TABLETS BY MO UTH ONCE A DAY WITH FOOD Take 1,000 mg by anupama th once daily. metoprolol tartrate 25 mg oral tablet (20 sources) beta-Adrenergic Jose Start: 12-04-2023 take 1 tablet by mouth twice daily Metoprolol Tartrate 25 mg tablet Active 0 .ROUTE .COMPLEX 180 December 04, 2023 12:04pm TAKE 1 TABLET BY MOUTH TWICE A DAY Start: 12-04-2023 take 1 tablet by anupama th twice daily Metoprolol Tartrate Active 0 .ROUTE .COMPLEX 180 December 04, 2023 1:04pm TAKE 1 TABLET BY MOUTH TWICE A DAY Start: 09-08-2023 End: 12-04-2023 take 1 tablet by mouth twice daily Metoprolol Tartrate 25 mg tablet Discontinued 25 MG PO Twice daily September 08, 2023 12:00am December 04, 2023 12:04pm Start: 02-04-2019 take 1 tablet by anupama [...] by mouth twice daily. Take by mouth. Bdcbjvumxrsuf-Bawhjuyz-Xgjzy n (MULTIVITAMIN 50 PLUS) tab (20 sources) [...] Comment on above: Take 1 tablet by [facility] twice daily. clopidogrel 75 mg oral tablet [...] Radical prostate ctomy 10/2014 and EBRT 2017 Dx: 2015, s/p radica l prostatectomy, ADT, EBRT, chemotherapy Cancer of prostate (7 sources) History of malignant neoplasm of prostate; Translations: [Personal history of malignant neoplasm of prostate] Onset: 04-14-2023 12-23-2019 Episodic Conduction disorders (18 sources) Left bundle branch block; Translations: [Other left bundle branch block] Onset: 08-25-2014 Chronic Coronary atherosclerosis and other heart disease (20 sources) Coronary arteriosclerosis; Translations: [Atherosclerotic heart disease of [place] coronary artery without angina pectoris] Onset: 10-10-2014 [...] [Nonrheumatic aortic (valve) stenosis] Onset: 07-17-2014 Chronic Comment on above: Echo: ROGER 1.13, [place] 324, - 04/2022Echo: ROGER 1.3, Velocity 280, gradient - 06/2023 Hyperplasia of prostate (2 sources) Lower urinary [...] 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] Onset: 06-01-2023 06-01-2023 Chronic Other gastrointestinal disorders (1 source) Diarrhea; Translations: [Diarrhea, unspecified] 06-10-2024 Episodic Other gastrointestinal disorders (1 source) Diarrhea, unspecified; Translations: [Diarrhea] 06-10-2024 Episodic Other injuries and conditions due to external [...] upper limb Chronic Other non-traumatic joint disorders (6 sources) Pain in right shoulder; Translations: [Right [...] [Actinic keratosis] 08-28-2023 Episodic Other skin disorders (3 sources) Mass of skin of left upper limb; Translations: [Localized swelling, mass and lump, left upper limb] 09-12-2023 Episodic Other skin disorders (3 sources) Mass of skin of right upper [...] disorders of nose and nasal sinuses Episodic Other upper respiratory disease (1 source) Mass of body region; Translations: [Other specified disorders of nose and nasal sinuses] 06-03-2024 Episodic Pancreatic disorders (not diabetes) (5 sources) Other specified diseases of pancreas; Translations: [Cyst of pancreas] Episodic Comment on above: MRCP: no significant change in 2021, 2022, 05/2024 Residual codes; unclassified (20 sources) Obstructive sleep apnea syndrome; Translations: [Obstructive sleep apnea (adult) (pediatric)] Onset: 04-03-2017 11-21-2023 Chronic Residual codes; unclassified (7 sources) Obstructive sleep apnea (adult) (pediatric); Translations: [...] Spondylosis; intervertebral disc disorders; other back problems (4 sources) Neck pain; Translations: [Cervicalgia] 11-23-2023 Episodic [...] Test Name Value Interpretation Reference Range Facility [facility] 08-08-2024 [facility] Visit (SP) Office ([facility]) PABLO FELIX ([id number]) 1945 M Date Time Provider Department 08/08/24 9:30 AM CHRISTO HOWARD During your visit today, we recorded the following information about you: Temperature Pulse Respiration Blood pressure 97.9 degrees 57/minute minute 149/56 Weight Height 95 kg 1.676 m Christo Howard APRN.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 MD 08/08/2024 12:09 PM Signed PATIENT NAME: Pablo Felix DATE: 08/08/2024 PRIMARY [...] mg 24 hr tablet Take by mouth. 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 Left base margin positive for neoplasm. Seminal vesicles with no diagnostic abnormality. 2 resected lymph nodes negative for neoplasm. LABS: Hemoglobin (g/dL) Date Value 08/01/2024 12.2 05/08/2018 12.8 Hematoc (more content not included)... Normal [facility] Basophils Auto (Bld) [#/Vol] on 08-01-2024 Basophils (Bld) [#/Vol] Automated basophil count <0.11 [facility] Basophils/100 WBC Auto (Bld) on 08-01-2024 Basophils/100 WBC (Bld) Automated basophil % [facility] Blood manual differential co mment interpretation narrativeon 08-01-2024 Manual differential comment [place] (Bld) [Interp] Blood manual differential comment interpretation narrative [facility] CBC W Auto Differential pane l (Bld)on 08-01-2024 Basophils (Bld) [#/Vol] 0.03 10*3/uL Normal <0.11 [facility] Comment on above: Order Comment: Speci men Type: BLOOD SPECIMEN Ordering Facility: [facility] Address: [address] [place] [address] Performed By: #### 5 7021-8 #### [facility] CLIA [id number] [address] [place] [address] 88476 Basophils/100 WBC (Bld) 0.5 % Normal [facility] Comment on above: Order Comment: Speci men Type: BLOOD SPECIMEN Ordering Facility: [facility] Address: [address] [place] [address] Performed By: #### 5 7021-8 #### [facility] CLIA [id number] [address] [place] [address] 28509 Differential cell count method Nom (Bld) Auto Normal [facility] Comment on above: Order Comment: Speci men Type: BLOOD SPECIMEN Ordering Facility: [facility] Address: [address] [place] [address] Performed By: #### 5 7021-8 #### [facility] CLIA [id number] [address] [place] [address] 13221 Eosinophils (Bld) [#/Vol] 0.50 10*3/uL High <0.46 [facility] Comment on above: Order Comment: Speci men Type: BLOOD SPECIMEN Ordering Facility: [facility] Address: [address] [place] [address] Performed By: #### 5 7021-8 #### [facility] CLIA [id number] [address] [place] [address] 70600 Eosinophils/100 WBC (Bld) 8.5 % Normal [facility] Comment on above: Order Comment: Speci men Type: BLOOD SPECIMEN Ordering Facility: [facility] Address: [address] [place] [address] Performed By: #### 5 7021-8 #### [facility] CLIA [id number] [address] [place] [address] 27058 Erythrocyte distribution width (RBC) [Ratio] 12.7 % Normal 11.5-15.0 [facility] Comment on above: Order Comment: Speci men Type: BLOOD SPECIMEN Ordering Facility: [facility] Address: [address] [place] [address] Performed By: #### 5 7021-8 #### [facility] CLIA [id number] [address] [place] [address] 70743 Hematocrit (Bld) [Volume fraction] 35.7 % Low 39.0-51.0 [facility] Comment on above: Order Comment: Speci men Type: BLOOD SPECIMEN Ordering Facility: [facility] Address: [address] [place] [address] Performed By: #### 5 7021-8 #### [facility] CLIA [id number] [address] [place] [address] 69600 Hemoglobin (Bld) [Mass/Vol] 12.2 g/dL Low 13.0-17.0 [facility] Comment on above: Order Comment: Speci men Type: BLOOD SPECIMEN Ordering Facility: [facility] Address: [address] [place] [address] Performed By: #### 5 7021-8 #### [facility] CLIA [id number] [address] [place] [address] Immature granulocytes (Bld) [#/Vol] 0.04 10*3/uL Normal <0.10 [facility] Comment on above: Order Comment: Speci men Type: BLOOD SPECIMEN Ordering Facility: [facility] Address: [address] [place] [address] Performed By: #### 5 7021-8 #### [facility] CLIA [id number] [address] [place] [address] 41598 Immature granulocytes/100 WBC (Bld) 0.7 % Normal [facility] Comment on above: Order Comment: Speci men Type: BLOOD SPECIMEN Ordering Facility: [facility] Address: [address] [place] [address] Performed By: #### 5 7021-8 #### [facility] CLIA [id number] [address] [place] [address] 85666 Lymphocytes (Bld) [#/Vol] 1.55 10*3/uL Normal 1.00-4.00 [facility] Comment on above: Order Comment: Speci men Type: BLOOD SPECIMEN Ordering Facility: [facility] Address: [address] [place] [address] Performed By: #### 5 7021-8 #### [facility] CLIA [id number] [address] [place] [address] 63978 Lymphocytes/100 WBC (Bld) 26.5 % Normal [facility] Comment on above: Order Comment: Speci men Type: BLOOD SPECIMEN Ordering Facility: [facility] Address: [address] [place] [address] Performed By: #### 5 7021-8 #### [facility] CLIA [id number] [address] [place] [address] 74782 MCH (RBC) [Entitic mass] 32.4 pg Normal 26.0-34.0 [facility] Comment on above: Order Comment: Speci men Type: BLOOD SPECIMEN Ordering Facility: [facility] Address: [address] [place] [address] Performed By: #### 5 7021-8 #### [facility] CLIA [id number] [address] [place] [address] 41304 MCHC (RBC) [Mass/Vol] 34.2 g/dL Normal 30.5-36.0 [facility] Comment on above: Order Comment: Speci men Type: BLOOD SPECIMEN Ordering Facility: [facility] Address: [address] [place] [address] Performed By: #### 5 7021-8 #### [facility] CLIA [id number] [address] [place] [address] 58172 MCV (RBC) [Entitic vol] 94.9 fL Normal 80.0-100.0 [facility] Comment on above: Order Comment: Speci men Type: BLOOD SPECIMEN Ordering Facility: [facility] Address: [address] [place] [address] Performed By: #### 5 7021-8 #### [facility] CLIA [id number] [address] [place] [address] 46128 Monocytes (Bld) [#/Vol] 0.55 10*3/uL Normal <0.87 [facility] Comment on above: Order Comment: Speci men Type: BLOOD SPECIMEN Ordering Facility: [facility] Address: [address] [place] [address] Performed By: #### 5 7021-8 #### [facility] CLIA [id number] [address] [place] [address] 09201 Monocytes/100 WBC (Bld) 9.4 % Normal [facility] Comment on above: Order Comment: Speci men Type: BLOOD SPECIMEN Ordering Facility: [facility] Address: [address] [place] [address] Performed By: #### 5 7021-8 #### [facility] CLIA [id number] [address] [place] [address] 82420 Neutrophils (Bld) [#/Vol] 3.19 10*3/uL Normal 1.45-7.50 [facility] Comment on above: Order Comment: Speci men Type: BLOOD SPECIMEN Ordering Facility: [facility] Address: [address] [place] [address] Performed By: #### 5 7021-8 #### [facility] CLIA [id number] [address] [place] [address] 16530 Neutrophils/100 WBC (Bld) 54.4 % Normal [facility] Comment on above: Order Comment: Speci men Type: BLOOD SPECIMEN Ordering Facility: [facility] Address: [address] [place] [address] Performed By: #### 5 7021-8 #### [facility] CLIA [id number] [address] [place] [address] 39509 Nucleated RBC (Bld) [#/Vol] 10*3/uL Normal <0.01 [facility] Comment on above: Order Comment: Speci men Type: BLOOD SPECIMEN Ordering Facility: [facility] Address: [address] [place] [address] Performed By: #### 5 7021-8 #### [facility] CLIA [id number] [address] [place] [address] 18649 Nucleated RBC/100 WBC (Bld) [Ratio] 0.0 /100 WBC Normal [facility] Comment on above: Order Comment: Speci men Type: BLOOD SPECIMEN Ordering Facility: [facility] Address: [address] [place] [address]34 Performed By: #### 5 7021-8 #### [facility] CLIA [id number] [address] [place] [address] 00663 Platelet mean volume (Bld) [Entitic vol] 9.4 fL Normal 9.0-12.7 [facility] Comment on above: Order Comment: Speci men Type: BLOOD SPECIMEN Ordering Facility: [facility] Address: [address] [place] [address] Performed By: #### 5 7021-8 #### [facility] CLIA [id number] [address] [place] [address] Platelets (Bld) [#/Vol] 177 10*3/uL Normal 150-400 [facility] Comment on above: Order Comment: Speci men Type: BLOOD SPECIMEN Ordering Facility: [facility] Address: [address] [place] [address] Performed By: #### 5 7021-8 #### [facility] CLIA [id number] [address] [place] [address] 26866 RBC (Bld) [#/Vol] 3.76 10*6/uL Low 4.20-6.00 [facility] Comment on above: Order Comment: Speci men Type: BLOOD SPECIMEN Ordering Facility: [facility] Address: [address] [place] [address] Performed By: #### 5 7021-8 #### [facility] CLIA [id number] [address] [place] [address] 98510 WBC (Bld) [#/Vol] 5.86 10*3/uL Normal 3.70-11.00 [facility] Comment on above: Order Comment: Speci men Type: BLOOD SPECIMEN Ordering Facility: [facility] Address: [address] [place] [address] Performed By: #### 5 7021-8 #### [facility] CLIA [id number] [address] [place] [address] 55799 Comprehensive metabolic 2000 panelon 08-01-2024 Albumin [Mass/Vol] 4.2 g/dL Normal 3.9-4.9 [facility] Comment on above: Order Comment: Speci men Type: BLOOD SPECIMEN Ordering Facility: [facility] Address: [address] [place] [address] Performed By: #### 5 7021-8 #### [facility] CLIA [id number] [address] [place] [address] 73368 ALP [Catalytic activity/Vol] 75 U/L Normal 38-113 [facility] Comment on above: Order Comment: Speci men Type: BLOOD SPECIMEN Ordering Facility: [facility] Address: [address] [place] [address] Performed By: #### 5 7021-8 #### [facility] CLIA [id number] [address] [place] [address] ALT [Catalytic activity/Vol] 17 U/L Normal 10-54 [facility] Comment on above: Order Comment: Speci men Type: BLOOD SPECIMEN Ordering Facility: [facility] Address: [address] [place] [id number] Performed By: #### 5 7021-8 #### [facility] CLIA [id number] [address] [place] [address] Anion gap [Moles/Vol] 11 mmol/L Normal 8-15 [facility] Comment on above: Order Comment: Speci men Type: BLOOD SPECIMEN Ordering Facility: [facility] Address: [address] [place] [address] Performed By: #### 5 7021-8 #### [facility] CLIA [id number] [address] [place] [address] 75799 AST [Catalytic activity/Vol] 17 U/L Normal 14-40 [facility] Comment on above: Order Comment: Speci men Type: BLOOD SPECIMEN Ordering Facility: [facility] Address: [facility] [place] [id number] Performed By: #### 5 7021-8 #### [facility] CLIA [id number] [address] [place] [address] 50569 Bilirubin [Mass/Vol] 0.6 mg/dL Normal 0.2-1.3 [facility] Comment on above: Order Comment: Speci men Type: BLOOD SPECIMEN Ordering Facility: [facility] Address: [facility] [place] [id number] Performed By: #### 5 7021-8 #### [facility] CLIA [id number] [address] [place] [address] Calcium [Mass/Vol] 10.3 mg/dL High 8.5-10.2 [facility] Comment on above: Order Comment: Speci men Type: BLOOD SPECIMEN Ordering Facility: [facility] Address: [address] [place] [address] Performed By: #### 5 7021-8 #### [facility] CLIA [id number] [address] [place] [address] Chloride [Moles/Vol] 100 mmol/L Normal 98-107 [facility] Comment on above: Order Comment: Speci men Type: BLOOD SPECIMEN Ordering Facility: [facility] Address: [address] [place] [address] Performed By: #### 5 7021-8 #### [facility] CLIA [id number] [address] [place] [address] 86688 CO2 [Moles/Vol] 26 mmol/L Normal 22-30 [facility] Comment on above: Order Comment: Speci men Type: BLOOD SPECIMEN Ordering Facility: [facility] Address: [address] [place] [address] Performed By: #### 5 7021-8 #### [facility] CLIA [id number] [address] [place] [address] 18435 Creatinine [Mass/Vol] 0.81 mg/dL Normal 0.73-1.22 [facility] [facility] Comment on above: Order Comment: Speci men Type: BLOOD SPECIMEN Ordering Facility: [facility] Address: [address] [place] [address] Performed By: #### 5 7021-8 #### [facility] CLIA [id number] [address] [place] [address] 89471 Creatinine and Glomerular filtration rate.predicted panel (S/P/Bld) 90 mL/min/1.73m??? Normal >=60 [facility] Comment on above: Order Comment: Speci men Type: BLOOD SPECIMEN Ordering Facility: [facility] Address: [address] [place] [address] 48189 Result Comment: Renae mated Glomerular Filtration Rate [...] GFR. Performed By: #### 5 7021-8 #### [facility] CLIA [id number] [address] [place] [address] 75954 Glucose [Mass/Vol] 119 mg/dL High 74-99 [facility] Comment on above: Order Comment: Specgarett men Type: BLOOD SPECIMEN Ordering Facility: [facility] Address: [address] [place] [address] 40525 Result Comment: The [place] Diabetes Association (ADA) provides guidance for cutoff [...] Standards of Medical Care in Diabetes 2016, [place] Diabetes Association. Diabetes Care. 2016.39(Suppl 1). Performed By: #### 5 7021-8 #### [facility] CLIA [id number] [address] [place] [address] 21665 Potassium [Moles/Vol] 4.8 mmol/L Normal 3.7-5.1 [facility] Comment on above: Order Comment: Nicanor camilo Type: BLOOD SPECIMEN Ordering Facility: [facility] Address: [address] [place] [address] Performed By: #### 5 7021-8 #### [facility] CLIA [id number] [address] [place] [address] 62630 Protein [Mass/Vol] 6.3 g/dL Normal 6.3-8.0 [facility] Comment on above: Order Comment: Nicanor men Type: BLOOD SPECIMEN Ordering Facility: [facility] Address: [address] [place] [address] Performed By: #### 5 7021-8 #### [facility] CLIA [id number] [address] [place] [address] Sodium [Moles/Vol] 137 mmol/L Normal 136-144 [facility] Comment on above: Order Comment: Speci men Type: BLOOD SPECIMEN Ordering Facility: [facility] Address: [address] [place] [address] Performed By: #### 5 7021-8 #### [facility] CLIA [id number] [address] [place] [address] 13807 Urea nitrogen [Mass/Vol] 14 mg/dL Normal 9-24 [facility] Comment on above: Order Comment: Speci men Type: BLOOD SPECIMEN Ordering Facility: [facility] Address: [address] [place] [address] Performed By: #### 5 7021-8 #### [facility] CLIA [id number] [address] [place] [address] 02163 Eosinophils/100 WBC Auto (Bl d)on 08-01-2024 Eosinophils/100 WBC (Bld) Automated eosinophil % [facility] Erythrocyte distribution wid th Auto (RBC) [Ratio]on 08-01-2024 Erythrocyte distribution width (RBC) [Ratio] Erythrocyte distribution width [Ratio] by Automated count 11.5-15.0 [facility] Hematocrit Auto (Bld) [Volum e fraction]on 08-01-2024 Hematocrit (Bld) [Volume fraction] Hematocrit [Volume Fraction] of Blood by Automated count Low 39.0-51.0 [facility] Hemoglobin [Mass/volume] in Bloodon 08-01-2024 Hemoglobin (Bld) [Mass/Vol] Hemoglobin [Mass/volume] in Blood Low 13.0-17.0 [facility] Laboratory - Chemistry and C hemistry - challengeon 08-01-2024 Albumin [Mass/Vol] 4.2 g/dL 3.9-4.9 [facility] ALP [Catalytic activity/Vol] 75 U/L 38-113 [facility] ALT [Catalytic activity/Vol] 17 U/L 10-54 [facility] AST [Catalytic activity/Vol] 17 U/L 14-40 [facility] Bilirubin [Mass/Vol] 0.6 mg/dL 0.2-1.3 [facility] Calcium [Mass/Vol] 10.3 mg/dL High 8.5-10.2 [facility] Chloride [Moles/Vol] 100 mmol/L 98-107 [facility] CO2 [Moles/Vol] 26 mmol/L 22-30 [facility] Creatinine [Mass/Vol] 0.81 mg/dL 0.73-1.22 [facility] Glucose [Mass/Vol] 119 mg/dL High 74-99 [facility] Comment on above: The [place] Diabete s Association (ADA) provides guidance for [...] Standards of Medical Care in Diabetes 2016, [place] Diabetes Association. Diabetes Care. 2016.39(Suppl 1). Potassium [Moles/Vol] 4.8 mmol/L 3.7-5.1 [facility] Sodium [Moles/Vol] 137 mmol/L 136-144 [facility] Urea nitrogen [Mass/Vol] 14 mg/dL 9-24 [facility] Laboratory - Hematology and Cell countson 08-01-2024 Eosinophils (Bld) [#/Vol] 0.50 10*3/uL High <0.46 [facility] Immature granulocytes (Bld) [#/Vol] 0.04 10*3/uL <0.10 [facility] Immature granulocytes/100 WBC (Bld) 0.7 % [facility] Leukocytes [#/volume] correc jomar for nucleated erythrocytes in Blood by Automated counon 08-01-2024 WBC corrected for nucl RBC Auto (Bld) [#/Vol] Leukocytes [#/volume] corrected for nucleated erythrocytes in Blood by Automated coun 3.70-11.00 [facility] Lymphocytes Auto (Bld) [#/Vo l]on 08-01-2024 Lymphocytes (Bld) [#/Vol] Lymphocytes [#/volume] in Blood by Automated count 1.00-4.00 [facility] Lymphocytes/100 WBC Auto (Bl d)on 08-01-2024 Lymphocytes/100 WBC (Bld) Lymphocytes/100 leukocytes in Blood by Automated count [facility] MCH Auto (RBC) [Entitic mass ]on 08-01-2024 MCH (RBC) [Entitic mass] MCH [Entitic mass] by Automated count 26.0-34.0 [facility] MCHC Auto (RBC) [Mass/Vol]on 08-01-2024 MCHC (RBC) [Mass/Vol] MCHC [Mass/volume] by Automated count 30.5-36.0 [facility] MCV Auto (RBC) [Entitic vol] on 08-01-2024 MCV (RBC) [Entitic vol] MCV [Entitic volume] by Automated count 80.0-100.0 [facility] Monocytes Auto (Bld) [#/Vol] on 08-01-2024 Monocytes (Bld) [#/Vol] Automated blood monocyte count <0.87 [facility] Monocytes/100 WBC Auto (Bld) on 08-01-2024 Monocytes/100 WBC (Bld) Automated monocyte % [facility] Neutrophils Auto (Bld) [#/Vo l]on 08-01-2024 Neutrophils (Bld) [#/Vol] Neutrophils [#/volume] in Blood by Automated count 1.45-7.50 [facility] Neutrophils/100 WBC Auto (Bl d)on 08-01-2024 Neutrophils/100 WBC (Bld) Automated neutrophil % [facility] No Panel Informationon 08-01 Estimated GFR (CKD-EPI) 90 mL/min/1.73m??? >=60 [facility] Comment on above: Estimated Glomerular Filtration [...] accurately reflect actual GFR. Prostate Specific Antigen 0.19 ng/mL <2.60 [facility] Comment on above: Total PSA test metho dology used is the Electrochemiluminescence Immunoassay by [employer]. Total PSA values by differing methodologies cannot be interchanged. Nucleated RBC Auto (Bld) [#/ Vol]on 08-01-2024 Nucleated RBC (Bld) [#/Vol] Nucleated erythrocytes [#/volume] in Blood by Automated count <0.01 [facility] Nucleated erythrocytes [Pres ence] in Blood by Automated counton 08-01-2024 Nucleated RBC Auto Ql (Bld) Nucleated erythrocytes [Presence] in Blood by Automated count [facility] PSA SerPl-mCncon 08-01-2024 Prostate specific Ag [Mass/Vol] 0.19 ng/mL Normal <2.60 [facility] Comment on above: Order Comment: Speci men Type: BLOOD SPECIMEN Ordering Facility: [facility] Address: [address] [place] [address] Result Comment: Tota l PSA test methodology used is the Electrochemiluminescence Immunoassay by [employer]. Total PSA values by differing methodologies cannot be interchanged. Performed By: #### 2 857-1 #### [facility] CLIA [id number] [address] [place] [address] [place] Platelet mean volume Auto (B ld) [Entitic vol]on 08-01-2024 Platelet mean volume (Bld) [Entitic vol] Platelet mean volume [Entitic volume] in Blood by Automated count 9.0-12.7 [facility] Platelets Auto (Bld) [#/Vol] on 08-01-2024 Platelets (Bld) [#/Vol] Platelets [#/volume] in Blood by Automated count 150-400 [facility] Protein [Mass/volume] in Ser um or Plasmaon 08-01-2024 Protein [Mass/Vol] Protein [Mass/volume ] in Serum or Plasma 6.3-8.0 [facility] RBC Auto (Bld) [#/Vol]on RBC (Bld) [#/Vol] Erythrocytes [#/volu me] in Blood by Automated count Low 4.20-6.00 [facility] Serum or plasma anion gap de terminationon 08-01-2024 Anion gap [Moles/Vol] Serum or plasma anion gap determination 8-15 [facility] CNOVSPon 05-09-2024 CNOVSP Visit (SP) Office (H EMASA) PABLO FELIX ([id number]) 1945 M Date Time Provider Department 05/09/24 [...] mg 24 hr tablet Take by mouth. 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 Left base margin positive for neoplasm. Seminal vesicles with no diagnostic abnormality. 2 resected lymph nodes negative for neoplasm. LABS: Hemoglobin (g/dL) Date Value 05/03/2024 11.5 05/08/2018 12.8 Hematocrit (%) Date Value 05/03/2024 33.2 05/08/2018 36.8 WBC (k/uL) Date Value 1 (more content not included)... Normal [facility] CBC W Auto Differential pane l (Bld)on 05-03-2024 Basophils (Bld) [#/Vol] 0.03 10*3/uL Normal <0.11 [facility] Comment on above: Order Comment: Speci men Type: BLOOD SPECIMEN Ordering Facility: [facility] Address: [address] [place] [address] Performed By: #### 5 7021-8 #### [facility] CLIA [id number] [address] [place] [address] 00700 Basophils/100 WBC (Bld) 0.5 % Normal [facility] Comment on above: Order Comment: Speci men Type: BLOOD SPECIMEN Ordering Facility: [facility] Address: [address] [place] [address] Performed By: #### 5 7021-8 #### [facility] CLIA [id number] [address] [place] [address] 36914 Differential cell count method Nom (Bld) Auto Normal [facility] Comment on above: Order Comment: Speci men Type: BLOOD SPECIMEN Ordering Facility: [facility] Address: [address] [place] [address] Performed By: #### 5 7021-8 #### [facility] CLIA [id number] [address] [place] [address] 38425 Eosinophils (Bld) [#/Vol] 0.48 10*3/uL High <0.46 [facility] Comment on above: Order Comment: Speci men Type: BLOOD SPECIMEN Ordering Facility: [facility] Address: [address] [place] [address] Performed By: #### 5 7021-8 #### [facility] CLIA [id number] [address] [place] [address] 94716 Eosinophils/100 WBC (Bld) 8.0 % Normal [facility] Comment on above: Order Comment: Speci men Type: BLOOD SPECIMEN Ordering Facility: [facility] Address: [address] [place] [address] Performed By: #### 5 7021-8 #### [facility] CLIA [id number] [address] [place] [address] 45090 Erythrocyte distribution width (RBC) [Ratio] 12.6 % Normal 11.5-15.0 [facility] Comment on above: Order Comment: Speci men Type: BLOOD SPECIMEN Ordering Facility: [facility] Address: [address] [place] [address] Performed By: #### 5 7021-8 #### [facility] CLIA [id number] [address] [place] [address] 63587 Hematocrit (Bld) [Volume fraction] 33.2 % Low 39.0-51.0 [facility] Comment on above: Order Comment: Speci men Type: BLOOD SPECIMEN Ordering Facility: [facility] Address: [address] [place] [address]08 Performed By: #### 5 7021-8 #### [facility] CLIA [id number] [address] [place] [address] 96640 Hemoglobin (Bld) [Mass/Vol] 11.5 g/dL Low 13.0-17.0 [facility] Comment on above: Order Comment: Speci men Type: BLOOD SPECIMEN Ordering Facility: [facility] Address: [address] [place] [address] Performed By: #### 5 7021-8 #### [facility] CLIA [id number] [address] [place] [address] 67677 Immature granulocytes (Bld) [#/Vol] 0.04 10*3/uL Normal <0.10 [facility] Comment on above: Order Comment: Speci men Type: BLOOD SPECIMEN Ordering Facility: [facility] Address: [address] [place] [address] Performed By: #### 5 7021-8 #### [facility] CLIA [id number] [address] [place] [address] 57386 Immature granulocytes/100 WBC (Bld) 0.7 % Normal [facility] Comment on above: Order Comment: Speci men Type: BLOOD SPECIMEN Ordering Facility: [facility] Address: [address] [place] [address] 34910 Performed By: #### 5 7021-8 #### [facility] CLIA [id number] [address] [place] [address] 51936 Lymphocytes (Bld) [#/Vol] 1.76 10*3/uL Normal 1.00-4.00 [facility] Comment on above: Order Comment: Speci men Type: BLOOD SPECIMEN Ordering Facility: [facility] Address: [address] [place] [address] 92957 Performed By: #### 5 7021-8 #### [facility] CLIA [id number] [address] [place] [address] 08748 Lymphocytes/100 WBC (Bld) 29.4 % Normal [facility] Comment on above: Order Comment: Speci men Type: BLOOD SPECIMEN Ordering Facility: [facility] Address: [address] [place] [address] 22420 Performed By: #### 5 7021-8 #### [facility] CLIA [id number] [address] [place] [address] 37308 MCH (RBC) [Entitic mass] 33.0 pg Normal 26.0-34.0 [facility] Comment on above: Order Comment: Speci men Type: BLOOD SPECIMEN Ordering Facility: [facility] Address: [address] [place] [address] 05379 Performed By: #### 5 7021-8 #### [facility] CLIA [id number] [address] [place] [address] 87628 MCHC (RBC) [Mass/Vol] 34.6 g/dL Normal 30.5-36.0 [facility] Comment on above: Order Comment: Speci men Type: BLOOD SPECIMEN Ordering Facility: [facility] Address: [address] [place] [address] Performed By: #### 5 7021-8 #### [facility] CLIA [id number] [address] [place] [address] 21101 MCV (RBC) [Entitic vol] 95.1 fL Normal 80.0-100.0 [facility] Comment on above: Order Comment: Speci men Type: BLOOD SPECIMEN Ordering Facility: [facility] Address: [address] [place] [address]237 Performed By: #### 5 7021-8 #### [facility] CLIA [id number] [address] [place] [address] 81573 Monocytes (Bld) [#/Vol] 0.48 10*3/uL Normal <0.87 [facility] Comment on above: Order Comment: Speci men Type: BLOOD SPECIMEN Ordering Facility: [facility] Address: [address] [place] [address] 85497 Performed By: #### 5 7021-8 #### [facility] CLIA [id number] [address] [place] [address] Monocytes/100 WBC (Bld) 8.0 % Normal [facility] Comment on above: Order Comment: Speci men Type: BLOOD SPECIMEN Ordering Facility: [facility] Address: [address] [place], [place] [address] Performed By: #### 5 7021-8 #### [facility] CLIA [id number] [address] [place] [address] 28220 Neutrophils (Bld) [#/Vol] 3.19 10*3/uL Normal 1.45-7.50 [facility] Comment on above: Order Comment: Speci men Type: BLOOD SPECIMEN Ordering Facility: [facility] Address: [address] [place] [address] Performed By: #### 5 7021-8 #### [facility] CLIA [id number] [address] [place] [address] 54478 Neutrophils/100 WBC (Bld) 53.4 % Normal [facility] Comment on above: Order Comment: Speci men Type: BLOOD SPECIMEN Ordering Facility: [facility] Address: [address] [place] [address] Performed By: #### 5 7021-8 #### [facility] CLIA [id number] [address] [place] [address] 10208 Nucleated RBC (Bld) [#/Vol] 10*3/uL Normal <0.01 [facility] Comment on above: Order Comment: Speci men Type: BLOOD SPECIMEN Ordering Facility: [facility] Address: [address] [place] [address] 93164 Performed By: #### 5 7021-8 #### [facility] CLIA [id number] [address] [place] [address] 55892 Nucleated RBC/100 WBC (Bld) [Ratio] 0.0 /100 WBC Normal [facility] Comment on above: Order Comment: Speci men Type: BLOOD SPECIMEN Ordering Facility: [facility] Address: [address] [place] [address] Performed By: #### 5 7021-8 #### [facility] CLIA [id number] [address] [place] [address] Platelet mean volume (Bld) [Entitic vol] 9.3 fL Normal 9.0-12.7 [facility] Comment on above: Order Comment: Speci men Type: BLOOD SPECIMEN Ordering Facility: [facility] Address: [address] [place] [address] Performed By: #### 5 7021-8 #### [facility] CLIA [id number] [address] [place] [address] Platelets (Bld) [#/Vol] 192 10*3/uL Normal 150-400 [facility] Comment on above: Order Comment: Speci men Type: BLOOD SPECIMEN Ordering Facility: [facility] Address: [address] [place] [address] Performed By: #### 5 7021-8 #### [facility] CLIA [id number] [address] [place] [address] RBC (Bld) [#/Vol] 3.49 10*6/uL Low 4.20-6.00 [facility] Comment on above: Order Comment: Speci men Type: BLOOD SPECIMEN Ordering Facility: [facility] Address: [address] [place] [address] Performed By: #### 5 7021-8 #### [facility] CLIA [id number] [address] [place] [address] WBC (Bld) [#/Vol] 5.98 10*3/uL Normal 3.70-11.00 [facility] Comment on above: Order Comment: Speci men Type: BLOOD SPECIMEN Ordering Facility: [facility] Address: [address] [place] [address] Performed By: #### 5 7021-8 #### [facility] CLIA [id number] [address] [place] [address] Comprehensive metabolic 2000 panelon 05-03-2024 Albumin [Mass/Vol] 3.9 g/dL Normal 3.9-4.9 [facility] Comment on above: Order Comment: Speci men Type: BLOOD SPECIMEN Ordering Facility: [facility] Address: [address] [place] [address] Performed By: #### 5 7021-8 #### [facility] CLIA [id number] [address] [place] [address] 55570 ALP [Catalytic activity/Vol] 71 U/L Normal 38-113 [facility] Comment on above: Order Comment: Speci men Type: BLOOD SPECIMEN Ordering Facility: [facility] Address: [address] [place] [address] Performed By: #### 5 7021-8 #### [facility] CLIA [id number] [address] [place] [address] 75696 ALT [Catalytic activity/Vol] 16 U/L Normal 10-54 [facility] Comment on above: Order Comment: Speci men Type: BLOOD SPECIMEN Ordering Facility: [facility] Address: [address] [place] [address] 0[address]24 Performed By: #### 5 7021-8 #### [facility] CLIA [id number] [address] [place] [address] 91602 Anion gap [Moles/Vol] 9 mmol/L Normal 8-15 [facility] Comment on above: Order Comment: Speci men Type: BLOOD SPECIMEN Ordering Facility: [facility] Address: [address] [place] [address] 30142 Performed By: #### 5 7021-8 #### [facility] CLIA [id number] [address] [place] [address] 06146 AST [Catalytic activity/Vol] 17 U/L Normal 14-40 [facility] Comment on above: Order Comment: Speci men Type: BLOOD SPECIMEN Ordering Facility: [facility] Address: [address] [place] [address]109 Performed By: #### 5 7021-8 #### [facility] CLIA [id number] [address] [place] [address] Bilirubin [Mass/Vol] 0.5 mg/dL Normal 0.2-1.3 [facility] Comment on above: Order Comment: Speci men Type: BLOOD SPECIMEN Ordering Facility: [facility] Address: [address] [place] [address] Performed By: #### 5 7021-8 #### [facility] CLIA [id number] [address] [place] [address] 59577 Calcium [Mass/Vol] 9.5 mg/dL Normal 8.5-10.2 [facility] Comment on above: Order Comment: Speci men Type: BLOOD SPECIMEN Ordering Facility: [facility] Address: [address] [place] [address] Performed By: #### 5 7021-8 #### [facility] CLIA [id number] [address] [place] [address] 15672 Chloride [Moles/Vol] 104 mmol/L Normal 98-107 [facility] Comment on above: Order Comment: Speci men Type: BLOOD SPECIMEN Ordering Facility: [facility] Address: [address] [place] [address] Performed By: #### 5 7021-8 #### [facility] CLIA [id number] [address] [place] [address] 01823 CO2 [Moles/Vol] 26 mmol/L Normal 22-30 [facility] Comment on above: Order Comment: Speci men Type: BLOOD SPECIMEN Ordering Facility: [facility] Address: [address] [place] [address] 26579 Performed By: #### 5 7021-8 #### [facility] CLIA [id number] [address] [place] [address] 32403 Creatinine [Mass/Vol] 0.88 mg/dL Normal 0.73-1.22 [facility] Comment on above: Order Comment: Speci men Type: BLOOD SPECIMEN Ordering Facility: [facility] Address: [address] [place] [address] Performed By: #### 5 7021-8 #### [facility] CLIA [id number] [address] [place] [address] 94972 Creatinine and Glomerular filtration rate.predicted panel (S/P/Bld) 88 mL/min/1.73m??? Normal >=60 [facility] Comment on above: Order Comment: Nicanor camilo Type: BLOOD SPECIMEN Ordering Facility: [facility] Address: [address] [place] [address] Result Comment: Renae mated Glomerular Filtration Rate [...] GFR. Performed By: #### 5 7021-8 #### [facility] CLIA [id number] [address] [place], [place] [id number] Glucose [Mass/Vol] 106 mg/dL High 74-99 [facility] Comment on above: Order Comment: Nicanor camilo Type: BLOOD SPECIMEN Ordering Facility: [facility] Address: [address] [place] [address] Result Comment: The [place] [employer] (ADA) provides guidance for cutoff [...] Standards of Medical Care in Diabetes 2016, [place] [employer]. Diabetes Care. 2016.39(Suppl 1). Performed By: #### 5 7021-8 #### [facility] [facility] CLIA [id number] [address] [place] [address] 91564 Potassium [Moles/Vol] 5.6 mmol/L High 3.7-5.1 [facility] Comment on above: Order Comment: Speci men Type: BLOOD SPECIMEN Ordering Facility: [facility] Address: [address] [place] [address] Performed By: #### 5 7021-8 #### [facility] CLIA [id number] [address] [place] [address] Protein [Mass/Vol] 6.3 g/dL Normal 6.3-8.0 [facility] Comment on above: Order Comment: Speci men Type: BLOOD SPECIMEN Ordering Facility: [facility] Address: [address] [place] [address] Performed By: #### 5 7021-8 #### [facility] CLIA [id number] [address] [place] [address] Sodium [Moles/Vol] 139 mmol/L Normal 136-144 [facility] Comment on above: Order Comment: Speci men Type: BLOOD SPECIMEN Ordering Facility: [facility] Address: [address] [place] [address] Performed By: #### 5 7021-8 #### [facility] CLIA [id number] [address] [place] [address] 68578 Urea nitrogen [Mass/Vol] 19 mg/dL Normal 9-24 [facility] Comment on above: Order Comment: Speci men Type: BLOOD SPECIMEN Ordering Facility: [facility] Address: [address] [place] [address] Performed By: #### 5 7021-8 #### [facility] CLIA [id number] [address] [place] [address] 66979 PSA [facility] 05-03-2024 Prostate specific Ag [Mass/Vol] 0.18 ng/mL Normal <2.60 [facility] Comment on above: Order Comment: Speci men Type: BLOOD SPECIMEN Ordering Facility: [facility] Address: [address] [place] [address] Result Comment: Tota l PSA test methodology used is the Electrochemiluminescence Immunoassay by [employer]. Total PSA values by differing methodologies cannot be interchanged. Performed By: #### 5 7021-8 #### [facility] CLIA [id number] [address] [place] [address] 80516 Ambulatory Visit Summaryon 1 Ambulatory Visit Summary Ambulatory Visit Summary PABLO FELIX :1945 Visit Date:04/19/2024 Ambulatory Visit Instructions Your Diagnosis Prostate cancer Rising PSA following treatment for malignant neoplasm of prostate Microscopic hematuria Kidney stones Your Care Team Attending Physician - Anthony SCRUGGS MD Primary Care Physician - JAMAR FALL DO This Is Your Medications List Contact prescribing physician if questions or concerns aspirin (aspirin 81 mg oral tablet) atorvastatin (atorvastatin 40 mg Tab) cholecalciferol (Vitamin D3) enzalutamide (Xtandi 80 mg oral tablet) glimepiride hydrochlorothiazide-lisinop ril (hydrochlorothiazide-lisino pril 12.5 mg-20 mg Tab) ipratropium nasal (ipratropium Nasal 0.06% [place]) metformin (metformin 1000 mg oral tablet) metoprolol [...] Follow-Up Appointments Monday 9:15 AM EDT With: KAEL JAMES, Anthony Lee Where: [facility] [address] [place] [address]- You Need to Schedule the Following Appointments Follow Up with KAEL JAMES, COLT Geiger When: Where: [facility] [place] [address]- Medications What How Much When Instructions Unchanged [...] Unchanged ipratropium nasal (ipratropium Nasal 0.06% [place]) Contact prescribing physician if questions or concerns [...] Trouble st (more content not included)... Normal [facility] Urology Office/Clinic Noteon 04-19-2024 Urology Office/Clinic [...] qd and Xgeva q3mos. Last seen by [facility] oncology 02/02/24. Plan at that time [...] KUB 04/21/23 neg for obvious stones. KUB 03/25/24 shows probable punctate calculi over the right renal region. Denies pain or passage of stones since last visit. Follow-up With When Contact Information KAEL JAMES, Anthony Lee, URL [address] [place] [address]- Additional Instructions: 6 mos w/ PSA and [...] hydrochlorothiazide-lisinop ril (more content not included)... Normal [facility] Comment on above: Result Comment: Elec tronically Signed By: Anthony SCRUGGS MD\.br\Date and Time Signed: 04/19/24 08:47 EDT\.br\Electronically Co-Signed By: Olamide Ureña.br\Date and Time Co-Signed: 04/19/24 08:45 EDT Office Visiton 03-29-2024 Follow-up visit [id number] Pablo Felix 1945 Date Provider Department Center 03/29/2024 Ag-LORA ENGLISH NOLVIA Kc Family History Problem Relation Age of Onset Coronary artery disease Father Family Status - Relation Status Age at Father Level of Service:18259 SD OFFICE/OUTPATIENT ESTABLISHED MOD MDM 30 MIN Normal [facility] CNOVSPon 02-02-2024 CNOVSP Visit (SP) Office (H EMASA) PABLO FELIX ([id number]) 1945 Date Time Provider Department 02/02/24 11:30 AM LYNNE ALARCON During your visit today, we recorded the following information about you: Temperature Pulse Respiration Blood pressure 97.3 degrees 52/minute 16/minute 137/54 Weight Height 93.7 kg 1.676 m Lynne Alarcon APRN.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 MD 02/02/2024 11:37 AM Signed PATIENT NAME: Pablo [...] mg 24 hr tablet Take by mouth. 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 Left base margin positive for neoplasm. Seminal vesicles with no diagnostic abnormality. 2 resected lymph nodes negative for neoplasm. LABS: Hemoglobin (g/dL) Date Va (more content not included)... Normal [facility] Basophils Auto (Bld) [#/Vol] on 01-25-2024 Basophils (Bld) [#/Vol] 0.04 10*3/uL <0.11 [facility] Basophils/100 WBC Auto (Bld) on 01-25-2024 Basophils/100 WBC (Bld) 0.6 % [facility] Blood manual differential co mment interpretation narrativeon 01-25-2024 Manual differential comment [place] (Bld) [Interp] Auto [facility] CBC W Auto Differential pane l (Bld)on 01-25-2024 Basophils (Bld) [#/Vol] 0.04 10*3/uL Normal <0.11 [facility] Comment on above: Order Comment: Speci men Type: BLOOD SPECIMEN Ordering Facility: [facility] Address: [address] [place] [address] Performed By: #### 5 7021-8 #### [facility] CLIA [id number] [address] [place] [address] Basophils/100 WBC (Bld) 0.6 % Normal [facility] Comment on above: Order Comment: Speci men Type: BLOOD SPECIMEN Ordering Facility: [facility] Address: [address] [place] [address] Performed By: #### 5 7021-8 #### [facility] CLIA [id number] [address] [place] [address] 61361 Differential cell count method Nom (Bld) Auto Normal [facility] Comment on above: Order Comment: Speci men Type: BLOOD SPECIMEN Ordering Facility: [facility] Address: [address] [place] [address] Performed By: #### 5 7021-8 #### [facility] CLIA [id number] [address] [place] [address] 50520 Eosinophils (Bld) [#/Vol] 0.40 10*3/uL Normal <0.46 [facility] Comment on above: Order Comment: Speci men Type: BLOOD SPECIMEN Ordering Facility: [facility] Address: [address] [place] [address] Performed By: #### 5 7021-8 #### [facility] CLIA [id number] [address] [place] [address] 07570 Eosinophils/100 WBC (Bld) 5.9 % Normal [facility] Comment on above: Order Comment: Speci men Type: BLOOD SPECIMEN Ordering Facility: [facility] Address: [address] [place] [address] Performed By: #### 5 7021-8 #### [facility] CLIA [id number] [address] [place] [address] 61891 Erythrocyte distribution width (RBC) [Ratio] 12.7 % Normal 11.5-15.0 [facility] Comment on above: Order Comment: Speci men Type: BLOOD SPECIMEN Ordering Facility: [facility] Address: [address] [place] [address] Performed By: #### 5 7021-8 #### [facility] CLIA [id number] [address] [place] [address] Hematocrit (Bld) [Volume fraction] 34.6 % Low 39.0-51.0 [facility] Comment on above: Order Comment: Speci men Type: BLOOD SPECIMEN Ordering Facility: [facility] Address: [address] [place] [address] Performed By: #### 5 7021-8 #### [facility] CLIA [id number] [address] [place] [address] 91175 Hemoglobin (Bld) [Mass/Vol] 11.8 g/dL Low 13.0-17.0 [facility] Comment on above: Order Comment: Speci men Type: BLOOD SPECIMEN Ordering Facility: [facility] Address: [address] [place] [address] Performed By: #### 5 7021-8 #### [facility] CLIA [id number] [address] [place] [address] 17118 Immature granulocytes (Bld) [#/Vol] 0.07 10*3/uL Normal <0.10 [facility] Comment on above: Order Comment: Speci men Type: BLOOD SPECIMEN Ordering Facility: [facility] Address: [address] [place] [address] Performed By: #### 5 7021-8 #### [facility] CLIA [id number] [address] [place] [address] 05022 Immature granulocytes/100 WBC (Bld) 1.0 % Normal [facility] Comment on above: Order Comment: Speci men Type: BLOOD SPECIMEN Ordering Facility: [facility] Address: [address] [place] [address]24 Performed By: #### 5 7021-8 #### [facility] CLIA [id number] [address] [place] [address] 47658 Lymphocytes (Bld) [#/Vol] 2.16 10*3/uL Normal 1.00-4.00 [facility] Comment on above: Order Comment: Speci men Type: BLOOD SPECIMEN Ordering Facility: [facility] Address: [address] [place] [address] Performed By: #### 5 7021-8 #### [facility] CLIA [id number] [address] [place] [address] 97510 Lymphocytes/100 WBC (Bld) 31.8 % Normal [facility] Comment on above: Order Comment: Speci men Type: BLOOD SPECIMEN Ordering Facility: [facility] Address: [address] [place] [address] Performed By: #### 5 7021-8 #### [facility] CLIA [id number] [address] [place] [address] 11202 MCH (RBC) [Entitic mass] 32.2 pg Normal 26.0-34.0 [facility] Comment on above: Order Comment: Speci men Type: BLOOD SPECIMEN Ordering Facility: [facility] Address: [address] [place] [address] Performed By: #### 5 7021-8 #### [facility] CLIA [id number] [address] [place] [address] 89157 MCHC (RBC) [Mass/Vol] 34.1 g/dL Normal 30.5-36.0 [facility] Comment on above: Order Comment: Speci men Type: BLOOD SPECIMEN Ordering Facility: [facility] Address: [address] [place] [address] Performed By: #### 5 7021-8 #### [facility] CLIA [id number] [address] [place] [address] 61992 MCV (RBC) [Entitic vol] 94.3 fL Normal 80.0-100.0 [facility] Comment on above: Order Comment: Speci men Type: BLOOD SPECIMEN Ordering Facility: [facility] Address: [address] [place] [address] Performed By: #### 5 7021-8 #### [facility] CLIA [id number] [address] [place] [address] 90689 Monocytes (Bld) [#/Vol] 0.60 10*3/uL Normal <0.87 [facility] Comment on above: Order Comment: Speci men Type: BLOOD SPECIMEN Ordering Facility: [facility] Address: [address] [place] [id number] Performed By: #### 5 7021-8 #### [facility] CLIA [id number] [address] [place] [address] 61725 Monocytes/100 WBC (Bld) 8.8 % Normal [facility] Comment on above: Order Comment: Speci men Type: BLOOD SPECIMEN Ordering Facility: [facility] Address: [address] [place] [address] Performed By: #### 5 7021-8 #### [facility] CLIA [id number] [address] [place] [address] 72542 Neutrophils (Bld) [#/Vol] 3.53 10*3/uL Normal 1.45-7.50 [facility] Comment on above: Order Comment: Speci men Type: BLOOD SPECIMEN Ordering Facility: [facility] Address: [address] [place] [id number] Performed By: #### 5 7021-8 #### [facility] CLIA [id number] [address] [place] [address] 46869 Neutrophils/100 WBC (Bld) 51.9 % Normal [facility] Comment on above: Order Comment: Speci men Type: BLOOD SPECIMEN Ordering Facility: [facility] Address: [address] [place] [address] Performed By: #### 5 7021-8 #### [facility] CLIA [id number] [address] [place] [address] 58677 Nucleated RBC (Bld) [#/Vol] 10*3/uL Normal <0.01 [facility] Comment on above: Order Comment: Speci men Type: BLOOD SPECIMEN Ordering Facility: [facility] Address: [address] [place] [address] Performed By: #### 5 7021-8 #### [facility] CLIA [id number] [address] [place] [address] Nucleated RBC/100 WBC (Bld) [Ratio] 0.0 /100 WBC Normal [facility] Comment on above: Order Comment: Speci men Type: BLOOD SPECIMEN Ordering Facility: [facility] Address: [address] [place] [address]41 Performed By: #### 5 7021-8 #### [facility] CLIA [id number] [address] [place] [address] Platelet mean volume (Bld) [Entitic vol] 10.3 fL Normal 9.0-12.7 [facility] Comment on above: Order Comment: Speci men Type: BLOOD SPECIMEN Ordering Facility: [facility] Address: [address] [place] [address] 45665 Performed By: #### 5 7021-8 #### [facility] CLIA [id number] [address] [place] [address] 31948 Platelets (Bld) [#/Vol] 184 10*3/uL Normal 150-400 [facility] Comment on above: Order Comment: Speci men Type: BLOOD SPECIMEN Ordering Facility: [facility] Address: [address] [place] [address] 76565 Performed By: #### 5 7021-8 #### [facility] CLIA [id number] [address] [place] [address] RBC (Bld) [#/Vol] 3.67 10*6/uL Low 4.20-6.00 [facility] Comment on above: Order Comment: Speci men Type: BLOOD SPECIMEN Ordering Facility: [facility] Address: [address] [place] [address]172 Performed By: #### 5 7021-8 #### [facility] CLIA [id number] [address] [place] [address] 61909 WBC (Bld) [#/Vol] 6.80 10*3/uL Normal 3.70-11.00 [facility] Comment on above: Order Comment: Speci men Type: BLOOD SPECIMEN Ordering Facility: [facility] Address: [address] [place] [address] Performed By: #### 5 7021-8 #### [facility] CLIA [id number] [address] [place] [address] 91110 Comprehensive metabolic 2000 panelon 01-25-2024 Albumin [Mass/Vol] 4.0 g/dL Normal 3.9-4.9 [facility] Comment on above: Order Comment: Speci men Type: BLOOD SPECIMEN Ordering Facility: [facility] Address: [address] [place] [address] Performed By: #### 5 7021-8 #### [facility] CLIA [id number] [address] [place] [address] 22289 ALP [Catalytic activity/Vol] 74 U/L Normal 38-113 [facility] Comment on above: Order Comment: Speci men Type: BLOOD SPECIMEN Ordering Facility: [facility] Address: [address] [place] [address] Performed By: #### 5 7021-8 #### [facility] CLIA [id number] [address] [place] [address] 21041 ALT [Catalytic activity/Vol] 18 U/L Normal 10-54 [facility] Comment on above: Order Comment: Speci men Type: BLOOD SPECIMEN Ordering Facility: [facility] Address: [address] [place] [address] Performed By: #### 5 7021-8 #### [facility] CLIA [id number] [address] [place] [address] 99178 Anion gap [Moles/Vol] 9 mmol/L Normal 8-15 [facility] Comment on above: Order Comment: Speci men Type: BLOOD SPECIMEN Ordering Facility: [facility] Address: [address] [place] [address] Performed By: #### 5 7021-8 #### [facility] CLIA [id number] [address] [place] [address] 75613 AST [Catalytic activity/Vol] 19 U/L Normal 14-40 [facility] Comment on above: Order Comment: Speci men Type: BLOOD SPECIMEN Ordering Facility: [facility] Address: [address] [place] [address] Performed By: #### 5 7021-8 #### [facility] CLIA [id number] [address] [place] [address] 46159 Bilirubin [Mass/Vol] 0.7 mg/dL Normal 0.2-1.3 [facility] Comment on above: Order Comment: Speci men Type: BLOOD SPECIMEN Ordering Facility: [facility] Address: [address] [place], [place] [address] Performed By: #### 5 7021-8 #### [facility] CLIA [id number] [address] [place] [address] 98977 Calcium [Mass/Vol] 9.9 mg/dL Normal 8.5-10.2 [facility] Comment on above: Order Comment: Speci men Type: BLOOD SPECIMEN Ordering Facility: [facility] Address: [address] [place] [address] 15543 Performed By: #### 5 7021-8 #### [facility] CLIA [id number] [address] [place] [address] 65713 Chloride [Moles/Vol] 103 mmol/L Normal 98-107 [facility] Comment on above: Order Comment: Speci men Type: BLOOD SPECIMEN Ordering Facility: [facility] Address: [address] [place] [address] Performed By: #### 5 7021-8 #### [facility] CLIA [id number] [address] [place] [address] 04798 CO2 [Moles/Vol] 25 mmol/L Normal 22-30 [facility] Comment on above: Order Comment: Speci men Type: BLOOD SPECIMEN Ordering Facility: [facility] Address: [address] [place] [address] 95133 Performed By: #### 5 7021-8 #### [facility] CLIA [id number] [address] [place] [address] 52765 Creatinine [Mass/Vol] 0.79 mg/dL Normal 0.73-1.22 [facility] Comment on above: Order Comment: Nicanor camilo Type: BLOOD SPECIMEN Ordering Facility: [facility] Address: [address] [place], [place] [address] Performed By: #### 5 7021-8 #### [facility] CLIA [id number] [address] [place] [address] 47183 Creatinine and Glomerular filtration rate.predicted panel (S/P/Bld) 91 mL/min/1.73m??? Normal >=60 [facility] Comment on above: Order Comment: Nicanor camilo Type: BLOOD SPECIMEN Ordering Facility: [facility] Address: [address] [place] [address] Result Comment: Renae mated Glomerular Filtration Rate [...] GFR. Performed By: #### 5 7021-8 #### [facility] CLIA [id number] [address] [place] [address] 08922 Glucose [Mass/Vol] 112 mg/dL High 74-99 [facility] Comment on above: Order Comment: Nicanor camilo Type: BLOOD SPECIMEN Ordering Facility: [facility] Address: [address] [place], [place] [address] Result Comment: The [place] Diabetes Association (ADA) provides guidance for cutoff [...] Standards of Medical Care in Diabetes 2016, [place] [employer]. Diabetes Care. 2016.39(Suppl 1). Performed By: #### 5 7021-8 #### [facility] CLIA [id number] [address] [place] [address] 99450 Potassium [Moles/Vol] 5.2 mmol/L High 3.7-5.1 [facility] Comment on above: Order Comment: Speci men Type: BLOOD SPECIMEN Ordering Facility: [facility] Address: [address] [place] [address] Performed By: #### 5 7021-8 #### [facility] CLIA [id number] [address] [place] [address] 76817 Protein [Mass/Vol] 6.6 g/dL Normal 6.3-8.0 [facility] Comment on above: Order Comment: Speci men Type: BLOOD SPECIMEN Ordering Facility: [facility] Address: [address] [place] [address] Performed By: #### 5 7021-8 #### [facility] CLIA [id number] [address] [place] [address] 68287 Sodium [Moles/Vol] 137 mmol/L Normal 136-144 [facility] Comment on above: Order Comment: Speci men Type: BLOOD SPECIMEN Ordering Facility: [facility] Address: [address] [place] [address] Performed By: #### 5 7021-8 #### [facility] CLIA [id number] [address] [place] [address] 34768 Urea nitrogen [Mass/Vol] 15 mg/dL Normal 9-24 [facility] Comment on above: Order Comment: Speci men Type: BLOOD SPECIMEN Ordering Facility: [facility] Address: [address] [place] [address] Performed By: #### 5 7021-8 #### [facility] CLIA [id number] [address] [place] [address] 28230 Eosinophils/100 WBC Auto (Bl d)on 01-25-2024 Eosinophils/100 WBC (Bld) 5.9 % [facility] Erythrocyte distribution wid th Auto (RBC) [Ratio]on 01-25-2024 Erythrocyte distribution width (RBC) [Ratio] 12.7 % 11.5-15.0 [facility] Hematocrit Auto (Bld) [Volum e fraction]on 01-25-2024 Hematocrit (Bld) [Volume fraction] 34.6 % Low 39.0-51.0 [facility] Hemoglobin [Mass/volume] in Bloodon 01-25-2024 Hemoglobin (Bld) [Mass/Vol] 11.8 g/dL Low 13.0-17.0 [facility] Laboratory - Chemistry and C hemistry - challengeon 01-25-2024 Albumin [Mass/Vol] 4.0 g/dL 3.9-4.9 [facility] ALP [Catalytic activity/Vol] 74 U/L 38-113 [facility] ALT [Catalytic activity/Vol] 18 U/L 10-54 [facility] AST [Catalytic activity/Vol] 19 U/L 14-40 [facility] Bilirubin [Mass/Vol] 0.7 mg/dL 0.2-1.3 [facility] Calcium [Mass/Vol] 9.9 mg/dL 8.5-10.2 [facility] Chloride [Moles/Vol] 103 mmol/L 98-107 [facility] CO2 [Moles/Vol] 25 mmol/L 22-30 [facility] Creatinine [Mass/Vol] 0.79 mg/dL 0.73-1.22 [facility] Glucose [Mass/Vol] 112 mg/dL High 74-99 [facility] Comment on above: The [place] Diab[employer] s Association (ADA) provides guidance for [...] Standards of Medical Care in Diabetes 2016, [place] [employer]. Diabetes Care. 2016.39(Suppl 1). Potassium [Moles/Vol] 5.2 mmol/L High 3.7-5.1 [facility] Sodium [Moles/Vol] 137 mmol/L 136-144 [facility] Urea nitrogen [Mass/Vol] 15 mg/dL 9- [facility] Laboratory - Hematology and Cell countson 01-25-2024 Eosinophils (Bld) [#/Vol] 0.40 10*3/uL <0.46 [facility] Immature granulocytes (Bld) [#/Vol] 0.07 10*3/uL <0.10 [facility] Immature granulocytes/100 WBC (Bld) 1.0 % [facility] Leukocytes [#/volume] correc jomar for nucleated erythrocytes in Blood by Automated counon 01-25-2024 WBC corrected for nucl RBC Auto (Bld) [#/Vol] 6.80 k/uL 3.70-11.00 [facility] Lymphocytes Auto (Bld) [#/Vo l]on 01-25-2024 Lymphocytes (Bld) [#/Vol] 2.16 10*3/uL 1.00-4.00 [facility] [facility] Lymph[facility]/100 WBC Auto (Bl d)on 01-25-2024 Lymphocytes/100 WBC (Bld) 31.8 % [facility] MCH Auto (RBC) [Entitic mass ]on 01-25-2024 MCH (RBC) [Entitic mass] 32.2 pg 26.0-34.0 [facility] MCHC Auto (RBC) [Mass/Vol]on 01-25-2024 MCHC (RBC) [Mass/Vol] 34.1 g/dL 30.5-36.0 [facility] MCV Auto (RBC) [Entitic vol] on 01-25-2024 MCV (RBC) [Entitic vol] 94.3 fL 80.0-100.0 [facility] Monocytes Auto (Bld) [#/Vol] on 01-25-2024 Monocytes (Bld) [#/Vol] 0.60 10*3/uL <0.87 [facility] Monocytes/100 WBC Auto (Bld) on 01-25-2024 Monocytes/100 WBC (Bld) 8.8 % [facility] Neutrophils Auto (Bld) [#/Vo l]on 01-25-2024 Neutrophils (Bld) [#/Vol] 3.53 10*3/uL 1.45-7.50 [facility] Neutrophils/100 WBC Auto (Bl d)on 01-25-2024 Neutrophils/100 WBC (Bld) 51.9 % [facility] No Panel Informationon 01-24 Estimated GFR (CKD-EPI) 91 mL/min/1.73m??? >=60 [facility] Comment on above: Estimated Glomerular Filtration [...] GFR. Prostate Specific Antigen 0.15 ng/mL <2.60 [facility] Comment on above: Total PSA test metho dology used is the Electrochemiluminescence Immunoassay by [employer]. Total PSA values by differing methodologies cannot be interchanged. Nucleated RBC Auto (Bld) [#/ Vol]on 01-25-2024 Nucleated RBC (Bld) [#/Vol] 10*3/uL <0.01 [facility] Nucleated erythrocytes [Pres ence] in Blood by Automated counton 01-25-2024 Nucleated RBC Auto Ql (Bld) 0.0 /100{WBC} [facility] PSA SerPl-mCncon 01-25-2024 Prostate specific Ag [Mass/Vol] 0.15 ng/mL Normal <2.60 [facility] Comment on above: Order Comment: Speci men Type: BLOOD SPECIMEN Ordering Facility: [facility] Address: [address] [place] [address] Result Comment: Tota l PSA test methodology used is the Electrochemiluminescence Immunoassay by [employer]. Total PSA values by differing methodologies cannot be interchanged. Performed By: #### 2 857-1 #### [facility] CLIA [id number] [address] [place] [address] [place] Platelet mean volume Auto (B ld) [Entitic vol]on 01-25-2024 Platelet mean volume (Bld) [Entitic vol] 10.3 fL 9.0-12.7 [facility] Platelets Auto (Bld) [#/Vol] on 01-25-2024 Platelets (Bld) [#/Vol] 184 10*3/uL 150-400 [facility] Protein [Mass/volume] in Ser um or Plasmaon 01-25-2024 Protein [Mass/Vol] 6.6 g/dL 6.3-8.0 [facility] RBC Auto (Bld) [#/Vol]on RBC (Bld) [#/Vol] 3.67 10*6/uL Low 4.20-6.00 [facility] Serum or plasma anion gap de terminationon 01-25-2024 Anion gap [Moles/Vol] 9 mmol/L 8-15 [facility] Consultation Noteon 11-07-19 24 Consultation Note [id number] [place] [facility] CNOVSPon 11-02-2023 CNOVSP Visit (SP) Office (H EMASA) PABLO FELIX ([id number]) 1945 M Date Time Provider Department 11/02/23 9:30 AM CHRISTO HOWARD During your visit today, we recorded the following information about you: Temperature Pulse Respiration Blood pressure 97.8 degrees 56/minute 16/minute 123/44 Weight Height 92.9 kg 1.676 m Christo Howard APRN.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 MD 11/03/2023 11:11 AM Signed PATIENT NAME: Pablo [...] mg 24 hr tablet Take by mouth. 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 Left base margin positive for neoplasm. Seminal vesicles with no diagnostic abnormality. 2 resected lymph nodes negative for neoplasm. LABS: Hem (more content not included)... Normal [facility] Basophils Auto (Bld) [#/Vol] on 10-30-2023 Basophils (Bld) [#/Vol] 0.04 10*3/uL <0.11 [facility] Basophils/100 WBC Auto (Bld) on 10-30-2023 Basophils/100 WBC (Bld) 0.5 % [facility] Blood manual differential co mment interpretation narrativeon 10-30-2023 Manual differential comment [place] (Bld) [Interp] Auto [facility] CBC W Auto Differential pane l (Bld)on 10-30-2023 Basophils (Bld) [#/Vol] 0.04 10*3/uL Normal <0.11 [facility] Comment on above: Order Comment: Speci men Type: BLOOD SPECIMEN Ordering Facility: [facility] Address: [address] [place] [address] Performed By: #### 5 7021-8 #### [facility] CLIA [id number] [address] [place] [address] Basophils/100 WBC (Bld) 0.5 % Normal [facility] Comment on above: Order Comment: Speci men Type: BLOOD SPECIMEN Ordering Facility: [facility] Address: [address] [place] [address] Performed By: #### 5 7021-8 #### [facility] CLIA [id number] [address] [place] [address] 56491 Differential cell count method Nom (Bld) Auto Normal [facility] Comment on above: Order Comment: Speci men Type: BLOOD SPECIMEN Ordering Facility: [facility] Address: [address] [place] [address] Performed By: #### 5 7021-8 #### [facility] CLIA [id number] [address] [place] [address] 07485 Eosinophils (Bld) [#/Vol] 0.35 10*3/uL Normal <0.46 [facility] Comment on above: Order Comment: Speci men Type: BLOOD SPECIMEN Ordering Facility: [facility] Address: [address] [place] [address] Performed By: #### 5 7021-8 #### [facility] CLIA [id number] [address] [place] [address] 94068 Eosinophils/100 WBC (Bld) 4.3 % Normal [facility] Comment on above: Order Comment: Speci men Type: BLOOD SPECIMEN Ordering Facility: [facility] Address: [address] [place] [address] Performed By: #### 5 7021-8 #### [facility] CLIA [id number] [address] [place] [address]1876 Erythrocyte distribution width (RBC) [Ratio] 12.8 % Normal 11.5-15.0 [facility] Comment on above: Order Comment: Speci men Type: BLOOD SPECIMEN Ordering Facility: [facility] Address: [address] [place] [address] Performed By: #### 5 7021-8 #### [facility] CLIA [id number] [address] [place] [address] 42658 Hematocrit (Bld) [Volume fraction] 35.8 % Low 39.0-51.0 [facility] Comment on above: Order Comment: Speci men Type: BLOOD SPECIMEN Ordering Facility: [facility] Address: [address] [place] [address] Performed By: #### 5 7021-8 #### [facility] CLIA [id number] [address] [place] [address] 37065 Hemoglobin (Bld) [Mass/Vol] 12.2 g/dL Low 13.0-17.0 [facility] Comment on above: Order Comment: Speci men Type: BLOOD SPECIMEN Ordering Facility: [facility] Address: [address] [place] [address] Performed By: #### 5 7021-8 #### [facility] CLIA [id number] [address] [place] [address] 41693 Immature granulocytes (Bld) [#/Vol] 0.04 10*3/uL Normal <0.10 [facility] Comment on above: Order Comment: Speci men Type: BLOOD SPECIMEN Ordering Facility: [facility] Address: [address] [place] [address] Performed By: #### 5 7021-8 #### [facility] CLIA [id number] [address] [place] [address] Immature granulocytes/100 WBC (Bld) 0.5 % Normal [facility] Comment on above: Order Comment: Speci men Type: BLOOD SPECIMEN Ordering Facility: [facility] Address: [address] [place] [address] Performed By: #### 5 7021-8 #### [facility] CLIA [id number] [address] [place] [address] Lymphocytes (Bld) [#/Vol] 1.36 10*3/uL Normal 1.00-4.00 [facility] Comment on above: Order Comment: Speci men Type: BLOOD SPECIMEN Ordering Facility: [facility] Address: [address] [place] [address] Performed By: #### 5 7021-8 #### [facility] CLIA [id number] [address] [place] [address] 43393 Lymphocytes/100 WBC (Bld) 16.6 % Normal [facility] Comment on above: Order Comment: Speci men Type: BLOOD SPECIMEN Ordering Facility: [facility] Address: [address] [place] [address] Performed By: #### 5 7021-8 #### [facility] CLIA [id number] [address] [place] [address] 47532 MCH (RBC) [Entitic mass] 31.3 pg Normal 26.0-34.0 [facility] Comment on above: Order Comment: Speci men Type: BLOOD SPECIMEN Ordering Facility: [facility] Address: [address] [place] [address] Performed By: #### 5 7021-8 #### [facility] CLIA [id number] [address] [place] [address] MCHC (RBC) [Mass/Vol] 34.1 g/dL Normal 30.5-36.0 [facility] Comment on above: Order Comment: Speci men Type: BLOOD SPECIMEN Ordering Facility: [facility] Address: [address] [place] [address] Performed By: #### 5 7021-8 #### [facility] CLIA [id number] [address] [place] [address] MCV (RBC) [Entitic vol] 91.8 fL Normal 80.0-100.0 [facility] Comment on above: Order Comment: Speci men Type: BLOOD SPECIMEN Ordering Facility: [facility] Address: [address] [place] [address] Performed By: #### 5 7021-8 #### [facility] CLIA [id number] [address] [place] [address] 97016 Monocytes (Bld) [#/Vol] 0.62 10*3/uL Normal <0.87 [facility] Comment on above: Order Comment: Speci men Type: BLOOD SPECIMEN Ordering Facility: [facility] Address: [address] [place] [address] Performed By: #### 5 7021-8 #### [facility] CLIA [id number] [address] [place] [address] 85109 Monocytes/100 WBC (Bld) 7.6 % Normal [facility] Comment on above: Order Comment: Speci men Type: BLOOD SPECIMEN Ordering Facility: [facility] Address: [address] [place] [address] Performed By: #### 5 7021-8 #### [facility] CLIA [id number] [address] [place] [address] Neutrophils (Bld) [#/Vol] 5.78 10*3/uL Normal 1.45-7.50 [facility] Comment on above: Order Comment: Speci men Type: BLOOD SPECIMEN Ordering Facility: [facility] Address: [address] [place] [address] Performed By: #### 5 7021-8 #### [facility] CLIA [id number] [address] [place] [address] 51657 Neutrophils/100 WBC (Bld) 70.5 % Normal [facility] Comment on above: Order Comment: Speci men Type: BLOOD SPECIMEN Ordering Facility: [facility] Address: [address] [place] [address] Performed By: #### 5 7021-8 #### [facility] CLIA [id number] [address] [place] [address] 44057 Nucleated RBC (Bld) [#/Vol] 10*3/uL Normal <0.01 [facility] Comment on above: Order Comment: Speci men Type: BLOOD SPECIMEN Ordering Facility: [facility] Address: [address] [place] [address] Performed By: #### 5 7021-8 #### [facility] CLIA [id number] [address] [place] [address] 75261 Nucleated RBC/100 WBC (Bld) [Ratio] 0.0 /100 WBC Normal [facility] Comment on above: Order Comment: Speci men Type: BLOOD SPECIMEN Ordering Facility: [facility] Address: [address] [place] [address] Performed By: #### 5 7021-8 #### [facility] CLIA [id number] [address] [place] [address] 26255 Platelet mean volume (Bld) [Entitic vol] 9.5 fL Normal 9.0-12.7 [facility] Comment on above: Order Comment: Speci men Type: BLOOD SPECIMEN Ordering Facility: [facility] Address: [address] [place] [address] Performed By: #### 5 7021-8 #### [facility] CLIA [id number] [address] [place] [address]950 Platelets (Bld) [#/Vol] 192 10*3/uL Normal 150-400 [facility] Comment on above: Order Comment: Speci men Type: BLOOD SPECIMEN Ordering Facility: [facility] Address: [address] [place] [address] Performed By: #### 5 7021-8 #### [facility] CLIA [id number] [address] [place] [address] RBC (Bld) [#/Vol] 3.90 10*6/uL Low 4.20-6.00 [facility] Comment on above: Order Comment: Speci men Type: BLOOD SPECIMEN Ordering Facility: [facility] Address: [address] [place] [address] Performed By: #### 5 7021-8 #### [facility] CLIA [id number] [address] [place] [address] 61795 WBC (Bld) [#/Vol] 8.19 10*3/uL Normal 3.70-11.00 [facility] Comment on above: Order Comment: Speci men Type: BLOOD SPECIMEN Ordering Facility: [facility] Address: [address] [place] [address] Performed By: #### 5 7021-8 #### [facility] CLIA [id number] [address] [place] [address] 51339 Comprehensive metabolic 2000 panelon 10-30-2023 Albumin [Mass/Vol] 4.1 g/dL Normal 3.9-4.9 [facility] Comment on above: Order Comment: Speci men Type: BLOOD SPECIMEN Ordering Facility: [facility] Address: [address] [place] [address] Performed By: #### 5 7021-8 #### [facility] CLIA [id number] [address] [place] [address] 15572 ALP [Catalytic activity/Vol] 75 U/L Normal 38-113 [facility] Comment on above: Order Comment: Speci men Type: BLOOD SPECIMEN Ordering Facility: [facility] Address: [address] [place] [address] Performed By: #### 5 7021-8 #### [facility] CLIA [id number] [address] [place] [address] 32298 ALT [Catalytic activity/Vol] 16 U/L Normal 10-54 [facility] Comment on above: Order Comment: Speci men Type: BLOOD SPECIMEN Ordering Facility: [facility] Address: [address] [place] [id number] Performed By: #### 5 7021-8 #### [facility] CLIA [id number] [address] [place] [address] Anion gap [Moles/Vol] 13 mmol/L Normal 9-18 [facility] Comment on above: Order Comment: Speci men Type: BLOOD SPECIMEN Ordering Facility: [facility] Address: [address] [place] [id number] Performed By: #### 5 7021-8 #### [facility] CLIA [id number] [address] [place] [address] 21045 AST [Catalytic activity/Vol] 16 U/L Normal 14-40 [facility] Comment on above: Order Comment: Speci men Type: BLOOD SPECIMEN Ordering Facility: [facility] Address: [address] [place], [place] [address] Performed By: #### 5 7021-8 #### [facility] CLIA [id number] [address] [place] [address] 47872 Bilirubin [Mass/Vol] 0.7 mg/dL Normal 0.2-1.3 [facility] Comment on above: Order Comment: Speci men Type: BLOOD SPECIMEN Ordering Facility: [facility] Address: [address] [place] [address] Performed By: #### 5 7021-8 #### [facility] CLIA [id number] [address] [place] [address] 92826 Calcium [Mass/Vol] 9.8 mg/dL Normal 8.5-10.2 [facility] Comment on above: Order Comment: Speci men Type: BLOOD SPECIMEN Ordering Facility: [facility] Address: [address] [place] [address] Performed By: #### 5 7021-8 #### [facility] CLIA [id number] [address] [place] [address] 85541 Chloride [Moles/Vol] 103 mmol/L Normal 97-105 [facility] Comment on above: Order Comment: Speci men Type: BLOOD SPECIMEN Ordering Facility: [facility] Address: [address] [place], [place] [address] Performed By: #### 5 7021-8 #### [facility] CLIA [id number] [address] [place] [address] CO2 [Moles/Vol] 24 mmol/L Normal 22-30 [facility] Comment on above: Order Comment: Speci men Type: BLOOD SPECIMEN Ordering Facility: [facility] Address: [address] [place] [address] Performed By: #### 5 7021-8 #### [facility] CLIA [id number] [address] [place] [address] 20107 Creatinine [Mass/Vol] 0.88 mg/dL Normal 0.73-1.22 [facility] Comment on above: Order Comment: Speci men Type: BLOOD SPECIMEN Ordering Facility: [facility] Address: [address] [place] [address] Performed By: #### 5 7021-8 #### [facility] CLIA [id number] [address] [place] [address] 33892 Creatinine and Glomerular filtration rate.predicted panel (S/P/Bld) 89 mL/min/1.73m??? Normal >=60 [facility] Comment on above: Order Comment: Speci men Type: BLOOD SPECIMEN Ordering Facility: [facility] Address: [address] [place], [place] [address] Result Comment: Renae mated Glomerular Filtration Rate [...] GFR. Performed By: #### 5 7021-8 #### [facility] CLIA [id number] [address] [place] [address] Glucose [Mass/Vol] 128 mg/dL High 74-99 [facility] Comment on above: Order Comment: Nicanor camilo Type: BLOOD SPECIMEN Ordering Facility: [facility] Address: [address] [place] [address] Result Comment: The [place] Diabetes Association (ADA) provides guidance for cutoff [...] Standards of Medical Care in Diabetes 2016, [place] [employer] Association. Diabetes Care. 2016.39(Suppl 1). Performed By: #### 5 7021-8 #### [facility] CLIA [id number] [address] [place] [address] Potassium [Moles/Vol] 4.8 mmol/L Normal 3.7-5.1 [facility] Comment on above: Order Comment: Nicanor camilo Type: BLOOD SPECIMEN Ordering Facility: [facility] Address: [address] [place] [address] Performed By: #### 5 7021-8 #### [facility] CLIA [id number] [address] [place] [address] 30696 Protein [Mass/Vol] 6.5 g/dL Normal 6.3-8.0 [facility] Comment on above: Order Comment: Nicanor camilo Type: BLOOD SPECIMEN Ordering Facility: [facility] Address: [address] [place] [address] Performed By: #### 5 7021-8 #### [facility] CLIA [id number] [address] [place] [address] Sodium [Moles/Vol] 140 mmol/L Normal 136-144 [facility] Comment on above: Order Comment: Speci men Type: BLOOD SPECIMEN Ordering Facility: [facility] Address: [address] [facility] [place] [address] Performed By: #### 5 7021-8 #### [facility] CLIA [id number] [address] [place] [address] Urea nitrogen [Mass/Vol] 18 mg/dL Normal 9-24 [facility] Comment on above: Order Comment: Speci men Type: BLOOD SPECIMEN Ordering Facility: [facility] Address: [address] [place] [address] Performed By: #### 5 7021-8 #### [facility] CLIA [id number] [address] [place] [address] 85329 Eosinophils/100 WBC Auto (Bl d)on 10-30-2023 Eosinophils/100 WBC (Bld) 4.3 % [facility] Erythrocyte distribution wid th Auto (RBC) [Ratio]on 10-30-2023 Erythrocyte distribution width (RBC) [Ratio] 12.8 % 11.5-15.0 [facility] Hematocrit Auto (Bld) [Volum e fraction]on 10-30-2023 Hematocrit (Bld) [Volume fraction] 35.8 % 39.0-51.0 [facility] Hemoglobin [Mass/volume] in Bloodon 10-30-2023 Hemoglobin (Bld) [Mass/Vol] 12.2 g/dL 13.0-17.0 [facility] Laboratory - Chemistry and C hemistry - challengeon 10-30-2023 Albumin [Mass/Vol] 4.1 g/dL 3.9-4.9 [facility] ALP [Catalytic activity/Vol] 75 U/L 38-113 [facility] ALT [Catalytic activity/Vol] 16 U/L 10-54 [facility] AST [Catalytic activity/Vol] 16 U/L 14-40 [facility] Bilirubin [Mass/Vol] 0.7 mg/dL 0.2-1.3 [facility] Calcium [Mass/Vol] 9.8 mg/dL 8.5-10.2 [facility] Chloride [Moles/Vol] 103 mmol/L 97-105 [facility] CO2 [Moles/Vol] 24 mmol/L 22-30 [facility] Creatinine [Mass/Vol] 0.88 mg/dL 0.73-1.22 [facility] Glucose [Mass/Vol] 128 mg/dL 74-99 [facility] Comment on above: The [place] Diab[employer] s Association (ADA) provides guidance for [...] Standards of Medical Care in Diabetes 2016, [place] [employer] Association. Diabetes Care. 2016.39(Suppl 1). Potassium [Moles/Vol] 4.8 mmol/L 3.7-5.1 [facility] Sodium [Moles/Vol] 140 mmol/L 136-144 [facility] Urea nitrogen [Mass/Vol] 18 mg/dL 9-24 [facility] Laboratory - Hematology and Cell countson 10-30-2023 Eosinophils (Bld) [#/Vol] 0.35 10*3/uL <0.46 [facility] Immature granulocytes (Bld) [#/Vol] 0.04 10*3/uL <0.10 [facility] Immature granulocytes/100 WBC (Bld) 0.5 % [facility] Leukocytes [#/volume] correc jomar for nucleated erythrocytes in Blood by Automated counon 10-30-2023 WBC corrected for nucl RBC Auto (Bld) [#/Vol] 8.19 k/uL 3.70-11.00 [facility] Lymphocytes Auto (Bld) [#/Vo l]on 10-30-2023 Lymphocytes (Bld) [#/Vol] 1.36 10*3/uL 1.00-4.00 [facility] Lymphocytes/100 WBC Auto (Bl d)on 10-30-2023 Lymphocytes/100 WBC (Bld) 16.6 % [facility] MCH Auto (RBC) [Entitic mass ]on 10-30-2023 MCH (RBC) [Entitic mass] 31.3 pg 26.0-34.0 [facility] MCHC Auto (RBC) [Mass/Vol]on 10-30-2023 MCHC (RBC) [Mass/Vol] 34.1 g/dL 30.5-36.0 [facility] MCV Auto (RBC) [Entitic vol] on 10-30-2023 MCV (RBC) [Entitic vol] 91.8 fL 80.0-100.0 [facility] Monocytes Auto (Bld) [#/Vol] on 10-30-2023 Monocytes (Bld) [#/Vol] 0.62 10*3/uL <0.87 [facility] Monocytes/100 WBC Auto (Bld) on 10-30-2023 Monocytes/100 WBC (Bld) 7.6 % [facility] Neutrophils Auto (Bld) [#/Vo l]on 10-30-2023 Neutrophils (Bld) [#/Vol] 5.78 10*3/uL 1.45-7.50 [facility] Neutrophils/100 WBC Auto (Bl d)on 10-30-2023 Neutrophils/100 WBC (Bld) 70.5 % [facility] No Panel Informationon 10-29 Estimated GFR (CKD-EPI) 89 mL/min/1.73m??? >=60 [facility] Comment on above: Estimated Glomerular Filtration [...] GFR. Prostate Specific Antigen 0.16 ng/mL <2.60 [facility] Comment on above: Total PSA test metho dology used is the Electrochemiluminescence Immunoassay by [employer]. Total PSA values by differing methodologies cannot be interchanged. Testosterone Level 78 ng/dL 193-824 [facility] Comment on above: A testosterone level in the 193-320 ng/dL range with associated clinical symptoms is considered low and may indicate hypogonadism (from [facility] 2010 363:123-135). Results >320 ng/dL are considered normal.Result rechecked. Nucleated RBC Auto (Bld) [#/ Vol]on 10-30-2023 Nucleated RBC (Bld) [#/Vol] 10*3/uL <0.01 [facility] Nucleated erythrocytes [Pres ence] in Blood by Automated counton 10-30-2023 Nucleated RBC Auto Ql (Bld) 0.0 /100{WBC} [facility] PSA SerPl-mCncon 10-30-2023 Prostate specific Ag [Mass/Vol] 0.16 ng/mL Normal <2.60 [facility] Comment on above: Order Comment: Speci men Type: BLOOD SPECIMEN Ordering Facility: [facility] Address: [address] [place] [address] Result Comment: Tota l PSA test methodology used is the Electrochemiluminescence Immunoassay by [employer]. Total PSA values by differing methodologies cannot be interchanged. Performed By: #### 5 7021-8 #### [facility] CLIA [id number] [address] [place], [place] [id number] Platelet mean volume Auto (B ld) [Entitic vol]on 10-30-2023 Platelet mean volume (Bld) [Entitic vol] 9.5 fL 9.0-12.7 [facility] Platelets Auto (Bld) [#/Vol] on 10-30-2023 Platelets (Bld) [#/Vol] 192 10*3/uL 150-400 [facility] Protein [Mass/volume] in Ser um or Plasmaon 10-30-2023 Protein [Mass/Vol] 6.5 g/dL 6.3-8.0 [facility] RBC Auto (Bld) [#/Vol]on RBC (Bld) [#/Vol] 3.90 10*6/uL 4.20-6.00 [facility] Serum or plasma anion gap de terminationon 04-15-2024 Anion gap [Moles/Vol] 13 mmol/L - [facility] Testost SerPl-mCncon 024 Testosterone [Mass/Vol] 78 ng/dL Low 193-824 [facility] Comment on above: Order Comment: Speci men Type: BLOOD SPECIMEN Ordering Facility: [facility] Address: [address] [place] [address] Result Comment: A te stosterone level in the 193-320 ng/dL range with associated clinical symptoms is considered low and may indicate hypogonadism (from [facility] 2010 363:123-135). Results >320 ng/dL are considered normal. Result rechecked. Performed By: #### 2 986-8 #### [facility] CLIA [id number] [address] [place] [address] [id number] [place] [address] [place] Patient Educationon 10-20-19 Patient Education Oncology Prostate Cancer The prostate [...] likelihood that the cancer will spread. ? Eagan 6 or lower: This indicates that the cancer cells look similar to normal prostate cells (well differentiated). ? Lucrecia 7: This indicates that the cancer cells look somewhat similar to normal prostate cells (moderately differentiated). ? Eagan 8, 9, or 10: This indicates that [...] external be (more content not included)... Normal [facility] Urology Office/Clinic Noteon 10-20-2023 Urology Office/Clinic [...] Information KAEL JAMES, Anthony Lee, URL [facility] [place] [address]- Additional Instructions: 6 mos w/ PSA and [...] tab(s), Oral, Daily ipratropium Nasal 0.06% [place] metformin 1000 mg oral tablet, Oral, BID metoprolol 25 mg ER Tab, 25 mg= 1 tab(s), Oral, BID Vitamin D3 Xtandi 80 mg oral tablet, Oral, Daily Allergies penicillin G benzathine (Unknown) Social History Alcohol Current, 1-2 times per year, 02/04/2019 Tobacco Never (less than 100 in lifetime) Tobacco Use:. Never Smokeless Tobacco Use:. (more content not included)... [facility] Comment on above: Result Comment: Elec tronically Signed By: Anthony SCRUGGS MD\.br\Date and Time Signed: 10/20/23 09:57 EDT\.br\Electronically Co-Signed By: Olamide Ureña.stephanie\Date and Time Co-Signed: 10/20/23 09:55 EDT Lab Reportson 10-10-2023 Lab Reports [id number] [facility] RAD - MISCon 10-10-2023 RAD - MISC [id number]#[id number] [facility] No Panel Informationon 10-08 Prostate Specific Antigen Total <0.13 ng/mL <=4.00 [facility] No Panel Informationon 08-28 [facility] Type of biopsy: schmidt ential [...] yes Amount of lidocaine used: 0.5 cc [facility] Consultation Noteon 08-04-19 Consultation Note [id number]#[id number] [facility] Office Visiton 06-22-2023 Follow-up visit [id number] Pablo Felix 1945 M Date Provider Department Center 06/22/2023 Erika-ALBERT MULLIGAN [facility] Family History Problem Relation Age of Onset Coronary artery disease Father Family Status - Relation Status Age at Father Level of Service:78634 SD OFFICE/OUTPATIENT ESTABLISHED MOD MDM 30-39 MIN Normal [facility] RAD - MISCon 04-24-2023 RAD - MISC [id number]#[id number] Normal [facility] GLYCOHEMOGLOBIN A1Con 2022 ADA RECOMMENDATION SEE BELOW Normal [facility] Comment on above: Result Comment: ADA RECOMMENDED LIMIT 4.0 - 6.0 ADA THERAPEUTIC TARGET < 7.0 ACTION SUGGESTED > 7.0 Performed By: #### D ATA1C #### [facility] [address] [address] [address] Bharati Aguiar Glucose [Mass/Vol] 131 mg/dL Normal [facility] Comment on above: Performed By: #### D ATA1C #### [facility] [address] [address] [address] Bharati Aguiar HbA1c (Bld) [Mass fraction] 6.2 % Normal 4.5-6.2 [facility] Comment on above: Performed By: #### D ATA1C #### [facility] [address] [address] [address] Bharati Aguiar XR CSPINE OBL FLEX_EXTon [...] by: CYNTHIA TORRES Date: 2022-07-21 15:52 Normal [facility] GLYCOHEMOGLOBIN A1Con 2021 ADA RECOMMENDATION SEE BELOW Normal [facility] Comment on above: Result Comment: ADA RECOMMENDED LIMIT 4.0 - 6.0 ADA THERAPEUTIC TARGET < 7.0 ACTION SUGGESTED > 7.0 Performed By: #### D ATA1C #### [facility] [address] [address] [address] Bharati Aguiar Glucose [Mass/Vol] 134 mg/dL Normal [facility] Comment on above: Performed By: #### D ATA1C #### [facility] [address] [address] [address] Bharati Aguiar HbA1c (Bld) [Mass fraction] 6.3 % Critically high 4.5-6.2 [facility] Comment on above: Performed By: #### D ATA1C #### [facility] [address] [address] [address] Bharati Aguiar ECHOCARDIO M/2D COMPLETEon 1 ECHOCARDIO M/2D COMPLETE Patient: PABLO FELIX Exam Date: 04/27/2022 : 1945 Gender:M Ordering : LORA KJunior TAMEKA Admission #: [id number] Family : DR JAMAR FALL D.O. Order #: [id number] CLICK HERE TO VIEW EXAM ECHOCARDIOGRAM REPORT [...] Carreon M.D. on 04/28/2022 at 19:09 Normal [facility] GLYCOHEMOGLOBIN A1Con 2021 ADA RECOMMENDATION SEE BELOW Normal [facility] Comment on above: Result Comment: ADA RECOMMENDED LIMIT 4.0 - 6.0 ADA THERAPEUTIC TARGET < 7.0 ACTION SUGGESTED > 7.0 Performed By: #### D ATA1C ####[facility] [id number] [id number]. Bharati Aguiar Glucose [Mass/Vol] 137 mg/dL Normal [facility] Comment on above: Performed By: #### D ATA1C ####[facility] [id number] [id number]. Bharati Aguiar HbA1c (Bld) [Mass fraction] 6.4 % Critically high 4.5-6.2 [facility] Comment on above: Performed By: #### D ATA1C ####[facility] [id number] [id number]. Bharati Aguiar NM BONE SC WH BODYon 022 NM BONE SC BODY WHOLE BODY RADIONUCL ROSALEE BONE SCAN: COMPARISON: CT of the chest, abdomen, and pelvis dated 11/05/2021 HISTORY: Prostate carcinoma TRACER DOSE: 25.0 mCi of technetium-99m MDP. FINDINGS: Fairly prominent tracer uptake is seen at the lesser trochanter of the left hip. This is suspicious for metastasis, although it was not obviously included in the mqfrl-sq-mmju of the recent CT. There are foci [...] FEDE DE JESUS Date: 2021-11-06 12:[address] [facility] [address] CHEST W CONon 11-05-2021 CT [...] LUIZ UMANA Date: 2021-11-05 14:08 Normal [facility] PROF 14(COMP METB)on 022 Albumin [Mass/Vol] 3.6 g/dL Normal 3.4-5.0 [facility] Comment on above: Performed By: #### C MP #### [facility] [address] [place] [address] Dr. Bharati Aguiar Albumin/Globulin [Mass ratio] 1.1 {ratio} Normal [facility] Comment on above: Performed By: #### C MP #### [facility] [address] [place] [address] Dr. Bharati Aguiar ALP [Catalytic activity/Vol] 89 U/L Normal 46-116 [facility] Comment on above: Performed By: #### C MP #### [facility] [address] [place] [address] Dr. Bharati Aguiar ALT [Catalytic activity/Vol] 33 U/L Normal 16-63 [facility] Comment on above: Performed By: #### C MP #### [facility] [address] [place] [address] Dr. Bharati Aguiar Anion gap [Moles/Vol] 12.1 mmol/L Normal [facility] Comment on above: Performed By: #### C MP #### [facility] [address] [place] [address] Dr. Bharati Aguiar AST [Catalytic activity/Vol] 19 U/L Normal 15-37 [facility] Comment on above: Performed By: #### C MP #### [facility] [address] [place] [address] Dr. Bharati Aguiar Bilirubin [Mass/Vol] 0.9 mg/dL Normal 0.2-1.3 [facility] Comment on above: Performed By: #### C MP #### [facility] [address] [place] [address] Dr. Bharati Aguiar Calcium [Mass/Vol] 8.8 mg/dL Normal 8.5-10.1 [facility] Comment on above: Performed By: #### C MP #### [facility] [address] [place] [address] Dr. Bharati Aguiar Chloride [Moles/Vol] 103 mmol/L Normal 98-107 [facility] Comment on above: Performed By: #### C MP #### [facility] [address] [address] [address] Bharati Aguiar CO2 [Moles/Vol] 28.6 mmol/L Normal 22.0-30.0 [facility] Comment on above: Performed By: #### C MP #### [facility] [address] [place] [address] Dr. Bharati Aguiar Creatinine [Mass/Vol] 0.85 mg/dL Normal 0.66-1.25 [facility] Comment on above: Performed By: #### C MP #### [facility] [address] [place] [address] Dr. Bharati Aguiar EGFR-AF MALDIVIAN >60 Normal >=60 [facility] Comment on above: Performed By: #### C MP #### [facility] [address] [place] [address] Dr. Bharati Aguiar EGFR-NON AF MALDIVIAN >60 Normal >=60 [facility] Comment on above: Performed By: #### C MP #### [facility] [address] [place] [address] Dr. Bharati Aguiar Globulin (S) [Mass/Vol] 3.4 g/dL Normal [facility] Comment on above: Performed By: #### C MP #### [facility] [address] [place] [address] Dr. Bharati Aguiar Glucose [Mass/Vol] 127 mg/dL Critically high 74-106 [facility] Comment on above: Performed By: #### C MP #### [facility] [address] [place] [address] Dr. Bharati Aguiar Potassium [Moles/Vol] 4.7 mmol/L Normal 3.4-5.0 [facility] Comment on above: Performed By: #### C MP #### [facility] [address] [address] [address] Bharati Aguiar Protein [Mass/Vol] 7.0 g/dL Normal 6.1-8.2 [facility] Comment on above: Performed By: #### C MP #### [facility] [address] [address] [address] Bharati Aguiar Sodium [Moles/Vol] 139 mmol/L Normal 137-145 [facility] Comment on above: Performed By: #### C MP #### [facility] [address] [address] [address] Bharati Aguiar Urea nitrogen [Mass/Vol] 18.0 mg/dL Normal 7.0-18.0 [facility] Comment on above: Performed By: #### C MP #### [facility] [address] [place] [address] Dr. Bharati Aguiar Urea nitrogen/Creatinin e [Mass ratio] 21.2 mg/mg Normal [facility] Comment on above: Performed By: #### C MP #### [facility] [address] [place] [address] Dr. Bharati Aguiar Vital Signs Date Time Vital Sign Value Performing Clinician Facility 09-02-2024 09:44-0500 Body height 168.91 cm [facility] 09-02-2024 09:44-0500 Body mass index (BMI) [Ratio] 32.4 kg/m2 [facility] 09-02-2024 09:44-0500 Body weight 92.53 kg [facility] 09-02-2024 09:44-0500 Diastolic blood pressure 80 mm[Hg] [facility] 09-02-2024 09:44-0500 Heart rate 46 /min [facility] 09-02-2024 09:44-0500 Respiratory rate 12 /min [facility] 09-02-2024 09:44-0500 Systolic blood pressure 130 mm[Hg] [facility] 08-08-2024 09:07-0500 Body height 167.6 cm Christo Howard APRN.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 MD Work Phone: [facility] 08-08-2024 09:07-0500 Body mass index (BMI) [Ratio] 33.82 kg/m2 Christo Howard APRN.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 MD Work Phone: [facility] 08-08-2024 09:07-0500 Body temperature 97.9 [degF] Christo Howard APRN.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 MD Work Phone: [facility] 08-08-2024 09:07-0500 Body weight 95 kg Christo Howard APRN.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 MD Work Phone: [facility] 08-08-2024 09:07-0500 Diastolic blood pressure 56 mm[Hg] Christo Howard APRN.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 MD Work Phone: [facility] 08-08-2024 09:07-0500 Heart rate 57 /min Christo Howard APRN.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 MD Work Phone: [facility] 08-08-2024 09:07-0500 Respiratory rate 16 /min Christo Howard APRN.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 MD Work Phone: [facility] 08-08-2024 09:07-0500 SaO2% (BldA) [Mass fraction] 99 % Christo Howard APRN.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 MD Work Phone: [facility] 08-08-2024 09:07-0500 Systolic blood pressure 149 mm[Hg] Christo Howard APRN.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 MD Work Phone: [facility] 06-10-2024 14:25-0500 Body height 168.91 cm [facility] 06-10-2024 14:25-0500 Body mass index (BMI) [Ratio] 32.8 kg/m2 [facility] 06-10-2024 14:25-0500 Body weight 93.55 kg [facility] 06-10-2024 14:25-0500 Diastolic blood pressure 79 mm[Hg] [facility] 06-10-2024 14:25-0500 Heart rate 61 /min [facility] 06-10-2024 14:25-0500 Respiratory rate 12 /min [facility] 06-10-2024 14:25-0500 Systolic blood pressure 153 mm[Hg] [facility] 05-09-2024 08:52-0400 Body mass index (BMI) [Ratio] 32.79 kg/m2 Marco A Esqueda MD Work Phone: [facility] 05-09-2024 08:52-0400 Body temperature 97.3 [degF] Marco A Esqueda MD Work Phone: [facility] 05-09-2024 08:52-0400 Body weight 92.1 kg Marco A Esqueda MD Work Phone: [facility] 05-09-2024 08:52-0400 Diastolic blood pressure 62 mm[Hg] Marco A Esqueda MD Work Phone: [facility] 05-09-2024 08:52-0400 Heart rate 62 /min Marco A Esqueda MD Work Phone: [facility] 05-09-2024 08:52-0400 Respiratory rate 16 /min Marco A Esqueda MD Work Phone: [facility] 05-09-2024 08:52-0400 SaO2% (BldA) [Mass fraction] 99 % Marco A Esqueda MD Work Phone: [facility] 05-09-2024 08:52-0400 Systolic blood pressure 141 mm[Hg] Marco A Esqueda MD Work Phone: [facility] 04-19-2024 08:15-0400 Blood Pressure Location Anthony SCRUGGS [facility] 04-19-2024 08:15-0400 Body temperature 98.6 [degF] Anthony SCRUGGS [facility] 04-19-2024 08:15-0400 Diastolic blood pressure 69 mm[Hg] Anthony SCRUGGS [facility] 04-19-2024 08:15-0400 Heart rate 64 /min Anthony SCRUGGS [facility] 04-19-2024 08:15-0400 Respiratory rate 17 /min Anthony SCRUGGS [facility] 04-19-2024 08:15-0400 Systolic blood pressure 129 mm[Hg] Anthony SCRUGGS [facility] 03-26-2024 08:37-0400 Body height 168.91 cm [facility] 03-26-2024 08:37-0400 Body mass index (BMI) [Ratio] 33 kg/m2 [facility] 03-26-2024 08:37-0400 Body weight 94.12 kg [facility] 03-26-2024 08:37-0400 Diastolic blood pressure 80 mm[Hg] [facility] 03-26-2024 08:37-0400 Heart rate 52 /min [facility] 03-26-2024 08:37-0400 Respiratory rate 12 /min [facility] 03-26-2024 08:37-0400 Systolic blood pressure 130 mm[Hg] [facility] 02-02-2024 11:06-0400 Body height 167.6 cm Lynne Alarcon 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.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 MD Work Phone: [facility] 02-02-2024 11:06-0400 Body mass index (BMI) [Ratio] 33.36 kg/m2 Lynne Gross 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.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 MD Work Phone: [facility] 02-02-2024 11:06-0400 Body temperature 97.3 [degF] Lynne Alarcon 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.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 MD Work Phone: [facility] 02-02-2024 11:06-0400 Body weight 93.7 kg Lynne Gross 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.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 MD Work Phone: [facility] 02-02-2024 11:06-0400 Diastolic blood pressure 54 mm[Hg] Lynne Alarcon 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.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 MD Work Phone: [facility] 02-02-2024 11:06-0400 Heart rate 52 /min Lynne Alarcon APRN.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 MD Work Phone: [facility] 02-02-2024 11:06-0400 Respiratory rate 16 /min Lynne Alarcon APRN.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 MD Work Phone: [facility] 02-02-2024 11:06-0400 SaO2% (BldA) [Mass fraction] 98 % Lynne Alarcon 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.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 MD Work Phone: [facility] 02-02-2024 11:06-0400 Systolic blood pressure 137 mm[Hg] Lynne Alarcon 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.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 MD Work Phone: [facility] 11-23-2023 08:38-0400 Body height 168.91 cm [facility] 11-23-2023 08:38-0400 Body mass index (BMI) [Ratio] 33.2 kg/m2 [facility] 11-23-2023 08:38-0400 Body weight 94.8 kg [facility] 11-23-2023 08:38-0400 Diastolic blood pressure 69 mm[Hg] [facility] 11-23-2023 08:38-0400 Heart rate 48 /min [facility] 11-23-2023 08:38-0400 Respiratory rate 12 /min [facility] 11-23-2023 08:38-0400 Systolic blood pressure 130 mm[Hg] [facility] 11-02-2023 09:14-0400 Body height 167.6 cm Christo Howard APRN.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 MD Work Phone: [facility] 11-02-2023 09:14-0400 Body temperature 97.81 [degF] Christo Howard APRN.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 MD Work Phone: [facility] 11-02-2023 09:14-0400 Body weight 92.9 kg Christo Howard APRN.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 MD Work Phone: [facility] 11-02-2023 09:14-0400 Diastolic blood pressure 44 mm[Hg] Christo Howard APRN.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 MD Work Phone: [facility] 11-02-2023 09:14-0400 Heart rate 56 /min Christo Howard APRN.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 MD Work Phone: [facility] 11-02-2023 09:14-0400 Respiratory rate 16 /min Christo Howard APRN.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 MD Work Phone: [facility] 11-02-2023 09:14-0400 SaO2% (BldA) [Mass fraction] 97 % Christo Howard 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.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 MD Work Phone: [facility] 11-02-2023 09:14-0400 Systolic blood pressure 123 mm[Hg] Christo Howard APRN.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 MD Work Phone: [facility] 10-20-2023 09:05-0400 Blood Pressure Location Anthony SCRUGGS [facility] 10-20-2023 09:05-0400 Diastolic blood pressure 64 mm[Hg] Anthony SCRUGGS [facility] 10-20-2023 09:05-0400 Heart rate 53 /min Anthony SCRUGGS [facility] 10-20-2023 09:05-0400 Respiratory rate 16 /min Anthony SCRUGGS [facility] 10-20-2023 09:05-0400 Systolic blood pressure 110 mm[Hg] Anthony SCRUGGS [facility] 09-12-2023 14:13-0500 Body height 168.91 cm [facility] 09-12-2023 14:13-0500 Body mass index (BMI) [Ratio] 33.4 kg/m2 [facility] 09-12-2023 14:13-0500 Body weight 95.42 kg [facility] 09-12-2023 14:13-0500 Diastolic blood pressure 84 mm[Hg] [facility] 09-12-2023 14:13-0500 Heart rate 56 /min [facility] 09-12-2023 14:13-0500 Respiratory rate 12 /min [facility] 09-12-2023 14:13-0500 Systolic blood pressure 143 mm[Hg] [facility] 08-24-2023 08:30-0500 Body height 168.91 cm Jamar Ball Other [facility] Other 08-24-2023 08:30-0500 Body mass index (BMI) [Ratio] 34.08 kg/m2 Jamar Ball Other [facility] Other 08-24-2023 08:30-0500 Body weight 97.25 kg Jamar Ball Other [facility] Other 08-24-2023 08:30-0500 Diastolic blood pressure 81 mm[Hg] Jamar Ball Other [facility] Other 08-24-2023 08:30-0500 Respiratory rate 12 /min Jamar Ball Other [facility] Other 08-24-2023 08:30-0500 Systolic blood pressure 125 mm[Hg] Jamar Ball Other [facility] Other 05-30-2023 15:00-0500 Body height 168.91 cm Jamar Ball Other [facility] Other 05-30-2023 15:00-0500 Body mass index (BMI) [Ratio] 32.84 kg/m2 Jamar Ball Other [facility] Other 05-30-2023 15:00-0500 Body weight 93.71 kg Jamar Ball Other [facility] Other 05-30-2023 15:00-0500 Diastolic blood pressure 66 mm[Hg] Jamar Ball Other [facility] Other 05-30-2023 15:00-0500 Respiratory rate 12 /min Jamar Ball Other [facility] Other 05-30-2023 15:00-0500 Systolic blood pressure 141 mm[Hg] Jamar Ball Other [facility] Other 05-01-2023 09:45-0400 Body height 168.91 cm Jamar Ball Other [facility] Other 05-01-2023 09:45-0400 Body mass index (BMI) [Ratio] 32.14 kg/m2 Jamar Ball Other [facility] Other 05-01-2023 09:45-0400 Body weight 91.72 kg Jamar Ball Other [facility] Other 05-01-2023 09:45-0400 Diastolic blood pressure 62 mm[Hg] Jamar Ball Other [facility] Other 05-01-2023 09:45-0400 Respiratory rate 12 /min Jamar Ball Other [facility] Other 05-01-2023 09:45-0400 Systolic blood pressure 129 mm[Hg] Jamar Ball Other [facility] Other 04-27-2023 09:23-0400 Diastolic blood pressure 49 mm[Hg] Christo Howard APRN.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 MD Work Phone: [facility] 04-27-2023 09:23-0400 Heart rate 50 /min Christo Howard APRN.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 MD Work Phone: [facility] 04-27-2023 09:23-0400 Systolic blood pressure 141 mm[Hg] Christo Howard APRN.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 MD Work Phone: [facility] 04-27-2023 09:20-0400 Body height 167.6 cm Christo Howard APRN.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 MD Work Phone: [facility] 04-27-2023 09:20-0400 Body temperature 97 [degF] Christo Howard APRN.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 MD Work Phone: [facility] 04-27-2023 09:20-0400 Body weight 92.53 kg Christo Howard APRN.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 MD Work Phone: [facility] 04-27-2023 09:20-0400 Respiratory rate 16 /min Christo Howard APRN.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 MD Work Phone: [facility] 04-27-2023 09:20-0400 SaO2% (BldA) [Mass fraction] 100 % Christo Howard APRN.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 MD Work Phone: [facility] 04-17-2023 08:45-0400 Blood Pressure Location Anthony SCRUGGS [facility] 04-17-2023 08:45-0400 Diastolic blood pressure 68 mm[Hg] Anthony SCRUGGS [facility] 04-17-2023 08:45-0400 Heart rate 62 /min Anthony SCRUGGS [facility] 04-17-2023 08:45-0400 Respiratory rate 16 /min Anthony SCRUGGS [facility] 04-17-2023 08:45-0400 Systolic blood pressure 130 mm[Hg] Anthony SCRUGGS [facility] 04-05-2023 13:45-0400 Body height 168.91 cm Jamar Ball Other [facility] Other 04-05-2023 13:45-0400 Body mass index (BMI) [Ratio] 32.46 kg/m2 Jamar Ball Other [facility] Other 04-05-2023 13:45-0400 Body weight 92.63 kg Jamar Ball Other [facility] Other 04-05-2023 13:45-0400 Diastolic blood pressure 67 mm[Hg] Jamar Ball Other [facility] Other 04-05-2023 13:45-0400 Respiratory rate 12 /min Jamar Ball Other [facility] Other 04-05-2023 13:45-0400 Systolic blood pressure 109 mm[Hg] Jamar Ball Other [facility] Other 03-15-2023 08:45-0400 Body height 168.91 cm Jamar Ball Other [facility] Other 03-15-2023 08:45-0400 Body mass index (BMI) [Ratio] 32.81 kg/m2 Jamar Ball Other [facility] Other 03-15-2023 08:45-0400 Body weight 93.62 kg Jamar Ball Other [facility] Other 03-15-2023 08:45-0400 Diastolic blood pressure 69 mm[Hg] Jamar Ball Other [facility] Other 03-15-2023 08:45-0400 Respiratory rate 12 /min Jamar Ball Other [facility] Other 03-15-2023 08:45-0400 Systolic blood pressure 131 mm[Hg] Jamar Fall Other [facility] Other 02-02-2023 09:32-0400 Body height 167.6 cm Marco A Esqueda MD Work Phone: [facility] 02-02-2023 09:32-0400 Body temperature 97.2 [degF] Marco A Esqueda MD Work Phone: [facility] 02-02-2023 09:32-0400 Body weight 96.62 kg Marco A Esqueda MD Work Phone: [facility] 02-02-2023 09:32-0400 Diastolic blood pressure 43 mm[Hg] Marco A Esqueda MD Work Phone: [facility] 02-02-2023 09:32-0400 Heart rate 50 /min Marco A Esqueda MD Work Phone: [facility] 02-02-2023 09:32-0400 Respiratory rate 16 /min Marco A Esqueda MD Work Phone: [facility] 02-02-2023 09:32-0400 SaO2% (BldA) [Mass fraction] 97 % Marco A Esqueda MD Work Phone: [facility] 02-02-2023 09:32-0400 Systolic blood pressure 131 mm[Hg] Marco A Esqueda MD Work Phone: [facility] 11-10-2022 09:30-0400 Body height 167.6 cm Christo Howard APRN.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 MD Work Phone: [facility] 11-10-2022 09:30-0400 Body temperature 97.11 [degF] Christo Howard APRN.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 MD Work Phone: [facility] 11-10-2022 09:30-0400 Body weight 96.44 kg Christo Howard APRN.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 MD Work Phone: [facility] 11-10-2022 09:30-0400 Diastolic blood pressure 68 mm[Hg] Christo Howard APRN.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 MD Work Phone: [facility] 11-10-2022 09:30-0400 Heart rate 54 /min Christo Howard APRN.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 MD Work Phone: [facility] 11-10-2022 09:30-0400 Respiratory rate 16 /min Christo Howard APRN.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 MD Work Phone: [facility] 11-10-2022 09:30-0400 SaO2% (BldA) [Mass fraction] 98 % Christo Howard APRN.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 MD Work Phone: [facility] 11-10-2022 09:30-0400 Systolic blood pressure 134 mm[Hg] Christo Howard APRN.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 MD Work Phone: [facility] 09-16-2022 08:30-0500 Body height 168.91 cm Jamar Ball Other [facility] Other 09-16-2022 08:30-0500 Body mass index (BMI) [Ratio] 33.16 kg/m2 Jamar Ball Other [facility] Other 09-16-2022 08:30-0500 Body weight 94.62 kg Jamar Ball Other [facility] Other 09-16-2022 08:30-0500 Diastolic blood pressure 78 mm[Hg] Jamar Ball Other [facility] Other 09-16-2022 08:30-0500 Respiratory rate 12 /min Jamar Ball Other [facility] Other 09-16-2022 08:30-0500 Systolic blood pressure 116 mm[Hg] Jamar Ball Other [facility] Other 09-09-2022 08:30-0500 Body height 168.91 cm Jamar Ball Other [facility] Other 09-09-2022 08:30-0500 Body mass index (BMI) [Ratio] 33.45 kg/m2 Jamar Ball Other [facility] Other 09-09-2022 08:30-0500 Body weight 95.44 kg Jamar Ball Other [facility] Other 09-09-2022 08:30-0500 Diastolic blood pressure 76 mm[Hg] Jamar Ball Other [facility] Other 09-09-2022 08:30-0500 Respiratory rate 12 /min Jamar Ball Other [facility] Other 09-09-2022 08:30-0500 Systolic blood pressure 118 mm[Hg] Jamar Ball Other [facility] Other 09-09-2022 07:30-0500 Body height 168.91 cm Jamar Ball Other [facility] Other 09-09-2022 07:30-0500 Body mass index (BMI) [Ratio] 33.45 kg/m2 Jamar Ball Other [facility] Other 09-09-2022 07:30-0500 Body weight 95.44 kg Jamar Ball Other [facility] Other 09-09-2022 07:30-0500 Diastolic blood pressure 76 mm[Hg] Jamar Ball Other [facility] Other 09-09-2022 07:30-0500 Respiratory rate 12 /min Jamar Ball Other [facility] Other 09-09-2022 07:30-0500 Systolic blood pressure 118 mm[Hg] Jamar Ball Other [facility] Other 08-11-2022 09:24-0500 Body height 167.6 cm Marco A Esqueda MD Work Phone: [facility] 08-11-2022 09:24-0500 Body temperature 97 [degF] Marco A Esqueda MD Work Phone: [facility] 08-11-2022 09:24-0500 Body weight 96.44 kg Marco A Esqueda MD Work Phone: [facility] 08-11-2022 09:24-0500 Diastolic blood pressure 56 mm[Hg] Marco A Esqueda MD Work Phone: [facility] 08-11-2022 09:24-0500 Heart rate 53 /min Marco A Esqueda MD Work Phone: [facility] 08-11-2022 09:24-0500 Respiratory rate 16 /min Marco A Esqueda MD Work Phone: [facility] 08-11-2022 09:24-0500 SaO2% (BldA) [Mass fraction] 97 % Marco A Esqueda MD Work Phone: [facility] 08-11-2022 09:24-0500 Systolic blood pressure 129 mm[Hg] Marco A Esqueda MD Work Phone: [facility] 07-21-2022 15:30-0500 Body height 168.91 cm Jamar Ball Other [facility] Other 07-21-2022 15:30-0500 Body mass index (BMI) [Ratio] 34.18 kg/m2 Jamar Ball Other [facility] Other 07-21-2022 15:30-0500 Body weight 97.52 kg Jamar Ball Other [facility] Other 07-21-2022 15:30-0500 Diastolic blood pressure 76 mm[Hg] Jamar Ball Other [facility] Other 07-21-2022 15:30-0500 Respiratory rate 16 /min Jamar Fall Other [facility] Other 07-21-2022 15:30-0500 Systolic blood pressure 118 mm[Hg] Jamar Fall Other [facility] Other 05-13-2022 09:07-0400 Blood Pressure Location Anthonycindy SCRUGGS [facility] 05-13-2022 09:07-0400 Diastolic blood pressure 72 mm[Hg] Anthony SCRUGGS [facility] 05-13-2022 09:07-0400 Heart rate 55 /min Anthony SCRUGGS [facility] 05-13-2022 09:07-0400 Respiratory rate 16 /min Anthony SCRUGGS [facility] 05-13-2022 09:07-0400 Systolic blood pressure 108 mm[Hg] Anthony SCRUGGS [facility] 05-12-2022 10:41-0400 Body temperature 97.81 [degF] LUAN Khan MD Work Phone: [facility] 05-12-2022 10:41-0400 Body weight 95.07 kg LUAN Khna MD Work Phone: [facility] 05-12-2022 10:41-0400 Diastolic blood pressure 42 mm[Hg] LUAN Khan MD Work Phone: [facility] 05-12-2022 10:41-0400 Heart rate 51 /min LUAN Khan MD Work Phone: [facility] 05-12-2022 10:41-0400 Respiratory rate 18 /min LUAN Khan MD Work Phone: [facility] 05-12-2022 10:41-0400 SaO2% (BldA) [Mass fraction] 99 % LUAN Khan MD Work Phone: [facility] 05-12-2022 10:41-0400 Systolic blood pressure 134 mm[Hg] LUAN Khan MD Work Phone: [facility] 02-17-2022 09:36-0400 Body height 167.6 cm Marco A Esqueda MD Work Phone: [facility] 02-17-2022 09:36-0400 Body temperature 97.9 [degF] Marco A Esqueda MD Work Phone: [facility] 02-17-2022 09:36-0400 Body weight 97.07 kg Marco A Esqueda MD Work Phone: [facility] 02-17-2022 09:36-0400 Diastolic blood pressure 58 mm[Hg] Marco A Esqueda MD Work Phone: [facility] 02-17-2022 09:36-0400 Heart rate 63 /min Marco A Esqueda MD Work Phone: [facility] 02-17-2022 09:36-0400 Respiratory rate 16 /min Marco A Esqueda MD Work Phone: [facility] 02-17-2022 09:36-0400 SaO2% (BldA) [Mass fraction] 99 % Marco A Esqueda MD Work Phone: [facility] 02-17-2022 09:36-0400 Systolic blood pressure 133 mm[Hg] Marco A Esqueda MD Work Phone: [facility] 11-18-2021 10:50-0400 Body temperature 97.7 [degF] [facility] [place] Work Phone: [facility] 11-18-2021 10:50-0400 Diastolic blood pressure 63 mm[Hg] [facility] [place] Work Phone: [facility] 11-18-2021 10:50-0400 Heart rate 60 /min [facility] [place] Work Phone: [facility] 11-18-2021 10:50-0400 Respiratory rate 18 /min [facility] [place] Work Phone: [facility] 11-18-2021 10:50-0400 SaO2% (BldA) [Mass fraction] 95 % [facility] [place] Work Phone: [facility] 11-18-2021 10:50-0400 Systolic blood pressure 139 mm[Hg] [facility] [place] Work Phone: [facility] 11-11-2021 13:58-0400 Body height 167.6 cm Marco A Esqueda MD Work Phone: [facility] 11-11-2021 13:58-0400 Body temperature 97.39 [degF] Marco A Esqueda MD Work Phone: [facility] 11-11-2021 13:58-0400 Body weight 98.97 kg Marco A Esqueda MD Work Phone: [facility] 11-11-2021 13:58-0400 Diastolic blood pressure 54 mm[Hg] Marco A Esqueda MD Work Phone: [facility] 11-11-2021 13:58-0400 Heart rate 68 /min Marco A Esqueda MD Work Phone: [facility] 11-11-2021 13:58-0400 Respiratory rate 16 /min Marco A Esqueda MD Work Phone: [facility] 11-11-2021 13:58-0400 SaO2% (BldA) [Mass fraction] 98 % Marco A Esqueda MD Work Phone: [facility] 11-11-2021 13:58-0400 Systolic blood pressure 130 mm[Hg] Marco A Esqueda MD Work Phone: [facility] 11-08-2021 13:03-0400 Blood Pressure Location Anthony KAEL [facility] 11-08-2021 13:03-0400 Diastolic blood pressure 60 mm[Hg] Anthony [facility]UGGS [facility] 11-08-2021 13:03-0400 Heart rate 61 /min Anthony SCRUGGS [facility] 11-08-2021 13:03-0400 Systolic blood pressure 135 mm[Hg] Anthony SCRUGGS [facility] En[facility] Encounter Date Encounter Type Care Provider Facility Start: 10-07-2024 ambulatory Anthony Bloomi ty:NORA Roberts Start: 09-02-2024 End: 09-02-2024 ambulatory [facility] Work Phone: Start: 09-02-2024 End: 09-02-2024 Patient encounter procedure [facility] Work Phone: Start: 08-30-2024 Patient encounter procedure [facility] Start: 08-08-2024 End: 08-08-2024 ambulatory [facility] Work Phone: Hematology/Oncology Comment on above: Malignant neoplasm o f prostate (HCC) (Primary Dx) Malignant neoplasm o f prostate (HCC) (Primary Dx); Essential hypertension; 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, unspecified vessel or lesion type; Type 2 diabetes mellitus without complication, without long-term current use of insulin (HCC) Start: 08-08-2024 End: 08-08-2024 Patient encounter procedure Christo Howard APRN.CNP Work Phone: Hematology/Oncology Start: 08-01-2024 End: 08-01-2024 ambulatory JAMAR FALL Facility:[facility] Start: 08-01-2024 Non-patient / Non-visit [facility] Work Phone: Start: 06-10-2024 End: 06-10-2024 Patient encounter procedure [facility] Work Phone: Start: 05-09-2024 End: 05-09-2024 ambulatory [facility] Ariella Work Phone: Hematology/Oncology Comment on above: Malignant neoplasm o f prostate (HCC) (Primary Dx) Start: 05-09-2024 End: 05-09-2024 Patient encounter procedure Marco A Esqueda MD Work Phone: Hematology/Oncology Start: 05-08-2024 End: 05-08-2024 Refill Aida Luo [facility] Work Phone: [facility] Comment on above: Refill Request Start: 05-03-2024 End: 05-03-2024 ambulatory JAMAR AFLL Facility:[facility] Start: 04-19-2024 End: 04-19-2024 ambulatory Anthony SCRUGGS Facility:[facility] Start: 04-19-2024 End: 04-19-2024 Patient encounter procedure Anthony SCRUGGS [facility] Start: 04-01-2024 End: 04-01-2024 Refill Marco A Esqueda MD Work Phone: Hematology/Oncology Comment on above: Refill Request Start: 04-01-2024 End: 04-01-2024 Refill Aida Luo [facility] Work Phone: [facility] Comment on above: Refill Request Start: 03-29-2024 Encounter for preprocedural cardiovascular examination [facility] Start: 03-29-2024 End: 04-01-2024 ambulatory [facility] Start: 03-29-2024 End: 04-01-2024 Encounter for other preprocedural examination [facility] Start: 03-29-2024 End: 04-01-2024 Encounter for preprocedural cardiovascular examination LORA ENGLISH [facility] Start: 03-26-2024 End: 03-26-2024 ambulatory [facility] Work Phone: Start: 03-26-2024 End: 03-26-2024 Patient encounter procedure [facility] Work Phone: Start: 02-29-2024 End: 02-29-2024 ambulatory LAURAJORGE FRANCO Not Available Start: 02-26-2024 End: 02-26-2024 ambulatory LONG JUÁREZJORGE Not Available Start: 02-02-2024 End: 02-02-2024 ambulatory [facility] Ariella Work Phone: Hematology/Oncology Comment on above: Malignant neoplasm o f prostate (HCC) (Primary Dx) Start: 02-02-2024 End: 02-02-2024 Patient encounter procedure Lynne Alarcon APRN.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 MD Work Phone: Hematology/Oncology Comment on above: Malignant neoplasm o f prostate (HCC) (Primary Dx) Start: 01-25-2024 End: 01-25-2024 ambulatory JAMAR FALL Facility:[facility] Start: 01-25-2024 Non-patient / Non-visit [facility] Work Phone: Start: 11-23-2023 End: 11-23-2023 ambulatory [facility] Work Phone: Start: 11-23-2023 End: 11-23-2023 Patient encounter procedure [facility] Work Phone: Start: 11-02-2023 End: 11-02-2023 ambulatory [facility] [place] Work Phone: Hematology/Oncology Comment on above: Malignant neoplasm o f prostate (HCC) (Primary Dx) Malignant neoplasm o f prostate (HCC) (Primary Dx); Essential hypertension; 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, unspecified vessel or lesion type; Type 2 diabetes mellitus without complication, without long-term current use of insulin (HCC); Lesion of skin of right ear; Abdominal discomfort Start: 11-02-2023 End: 11-02-2023 Patient encounter procedure Christo Howard 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.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 MD Work Phone: [facility] Start: 10-30-2023 End: 10-30-2023 ambulatory JAMAR FALL Facility:[facility] Start: 10-30-2023 Non-patient / Non-visit [facility] Physician [facility] Work Phone: Start: 10-20-2023 End: 10-20-2023 ambulatory Anthony SCRUGGS Facility:[facility] Start: 10-20-2023 End: 10-20-2023 Patient encounter procedure Anthony SCRUGGS [facility] Start: 10-09-2023 Non-patient / Non-visit [facility] Work Phone: Start: 09-28-2023 End: 09-28-2023 ambulatory PABLO CHRISTINA Not Available Start: 09-12-2023 End: 09-12-2023 Patient encounter procedure [facility] Work Phone: Start: 09-06-2023 Non-patient / Non-visit [facility] Work Phone: Start: 08-28-2023 Bamboo flowsheet [address] A Fel [address] 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-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 MD Work Phone: [facility] Start: 08-28-2023 Bamboo flowsheet [address] A [address] 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-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 MD Work Phone: [facility] Start: 08-28-2023 End: 08-28-2023 Patient encounter procedure Long Boo 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-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 MD Work Phone: [facility] Comment on above: Neoplasm of unspecif ied behavior of bone, soft tissue, and skin; Actinic keratosis Start: 08-28-2023 End: 08-28-2023 ambulatory LONG BOO Not Available Start: 08-24-2023 End: 08-24-2023 ambulatory Jamar Fall Other [facility] Other Start: 08-24-2023 Patient encounter procedure Jamar Fall [facility] Start: 08-04-2023 End: 08-04-2023 ambulatory Jamar Fall Other [facility] Other Start: 08-04-2023 Telephone encounter Jamar EDMONDS [facility] Start: 06-22-2023 End: 06-22-2023 ambulatory AB [facility] Start: 06-05-2023 Telephone encounter Jamar Serrano [facility] Start: 06-05-2023 End: 06-05-2023 ambulatory EMELINA LOUIS [employer] Other Start: 05-30-2023 End: 05-30-2023 ambulatory Jamar Fall Other [facility] Other Start: 05-30-2023 Office outpatient vi sit 15 minutes Jamar Fall [facility] Start: 05-01-2023 End: 05-01-2023 ambulatory Jamar Fall Other [facility] Other Start: 05-01-2023 Office outpatient vi sit 15 minutes Jamar Fall [facility] Start: 04-27-2023 Telephone encounter Jamar EDMONDS [facility] Start: 04-27-2023 End: 04-27-2023 ambulatory [facility] Krishnan Work Phone: Hematology/Oncology Comment on above: Malignant neoplasm o f prostate (HCC) (Primary Dx) Malignant neoplasm o f prostate (HCC) (Primary Dx); 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, unspecified vessel or lesion type; Essential hypertension; Type 2 diabetes mellitus without complication, without long-term current use of insulin (HCC) Start: 04-27-2023 End: 04-27-2023 Patient encounter procedure Christo Howard APRN.CNP Work Phone: [facility] Start: 04-25-2023 End: 04-25-2023 ambulatory Jamar Ball Other [facility] Other Start: 04-25-2023 Telephone encounter Jamar Ball [facility] Start: 04-18-2023 End: 04-18-2023 ambulatory Jamar Ball Other [facility] Other Start: 04-18-2023 Telephone encounter Jamar Ball [facility] Start: 04-17-2023 End: 04-17-2023 Patient encounter procedure Anthony Lee KAEL [facility] Start: 04-12-2023 End: 04-12-2023 ambulatory Jamar Ball Other [facility] Other Start: 04-12-2023 Telephone encounter Jamar Ball [facility] Start: 04-06-2023 End: 04-06-2023 ambulatory Jamar Ball Other [facility] Other Start: 04-06-2023 Telephone encounter Jamar Ball [facility] Start: 04-05-2023 End: 04-05-2023 ambulatory Jamar Ball Other [facility] Other Start: 04-05-2023 Office outpatient vi sit 15 minutes Jamar Ball [facility] Start: 04-05-2023 Telephone encounter Jamar Ball [facility] Start: 03-15-2023 End: 03-15-2023 ambulatory Jamar Ball Other [facility] Other Start: 03-15-2023 Office outpatient vi sit 25 minutes Jmaar Ball [facility] Start: 02-05-2023 End: 02-05-2023 ambulatory Jamar Ball Other [facility] Other Start: 02-05-2023 Telephone encounter Jamar Ball [facility] Start: 02-02-2023 End: 02-02-2023 ambulatory [facility] Him[facility]hu [place] Work Phone: Hematology/Oncology Comment on above: Malignant neoplasm o f prostate (HCC) (Primary Dx) Start: 02-02-2023 End: 02-02-2023 Patient encounter procedure Marco A Esqueda MD Work Phone: [facility] Start: 11-15-2022 End: 11-15-2022 ambulatory Jamar Fall Other [facility] Other Start: 11-15-2022 Encounter by [employer] Jamar Fall [facility] Start: 11-11-2022 End: 11-11-2022 ambulatory Jamar Fall Other [facility] Other Start: 11-11-2022 Encounter by [employer] Jamar Fall [facility] Start: 11-10-2022 End: 11-10-2022 ambulatory [facility] Himanshu Ariella Work Phone: Hematology/Oncology Comment on above: Malignant neoplasm o f prostate (HCC) (Primary Dx) Malignant neoplasm o f prostate (HCC) (Primary Dx); 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 Facility: Start: 09-16-2022 End: 09-16-2022 ambulatory Jamar Fall Other [facility] Other Start: 09-16-2022 Office outpatient vi sit 15 minutes Jamar Fall [facility] Start: 09-09-2022 End: 09-09-2022 ambulatory Jamar Fall Other [facility] Other Start: 09-09-2022 Patient encounter procedure Jamar Fall [facility] Start: 09-05-2022 End: 09-06-[address] NONE LISTED REQUEST Facility:[facility] Start: 08-11-2022 End: 08-11-2022 ambulatory [facility]hu Ariella Work Phone: Hematology/Oncology Comment on above: Malignant neoplasm o f prostate (HCC) (Primary Dx) Malignant neoplasm o f prostate (HCC) (Primary Dx); Bone metastasis (HCC); 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, unspecified vessel or lesion type; Essential hypertension; Type 2 diabetes mellitus without complication, without long-term current use of insulin (HCC) Start: 08-11-2022 End: 08-11-2022 Patient encounter procedure Marco A Esqueda MD Work Phone: [facility] Start: 07-21-2022 End: 07-22-[address] JAMAR FALL [facility] Other Start: 07-21-2022 Office outpatient vi sit 15 minutes Jamar Fall [facility] Start: 07-21-2022 Patient encounter procedure Jamar Fall [facility] Start: 07-21-2022 Telephone encounter Jamar Fall [facility] Start: 05-27-2022 End: 05-28-2022 ambulatory NONE LISTED REQUEST Facility: Start: 05-13-2022 End: 05-13-2022 Patient encounter procedure Anthony SCRUGGS [facility] Start: 05-12-2022 End: 05-12-2022 Patient encounter procedure Zach Khan MD Work Phone: Radiation Oncology Comment on above: Malignant neoplasm o f prostate (HCC) (Primary Dx) Start: 05-12-2022 End: 05-12-2022 ambulatory [facility] Himanshuiraj Krishnan Work Phone: Hematology/Oncology Comment on above: [...] Phone: [facility] Start: 01-25-2022 End: 01-26-[address] NONE LISTED REQUEST Facility:[facility] Start: 12-06-2021 Telephone encounter Clementine steinberg RN Work Phone: Hematology/Oncology Comment on above: Care Coordination (R efill Question) Start: 11-18-2021 End: 11-18-2021 ambulatory [facility] Himanshu [place] Work Phone: Hematology/Oncology Comment on above: Malignant [...] encounter procedure Anthony SCRUGGS [facility] Start: 11-05-2021 End: 11-06-[address] MARCO A ESQUEDA Facility:[facility] Start: 11-04-2021 ambulatory Clementine lee RN Work Phone: Hematology/Oncology Comment on above: Oral Anti-cancer Age nt Education (Enzalutamide) Start: 11-04-2021 Telephone encounter Aida Coles [facility] Work Phone: Hematology/Oncology Comment on above: Medication [...] 07-22-2021 Adult health examination Bam Fall Other [facility] Other Procedures Date Procedure Procedure Detail Performing Clinician Start: 08-28-2023 CRYOTHERAPY SKIN LESION Long Iraj Boo 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-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 MD Work Phone: Start: 08-28-2023 SKIN / NAIL BIOPSY Windy lie Iraj Boo 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-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 MD Work Phone: Start: 07-17-2023 Decompression of med anthony nerve Anthony SCRUGGS Start: 10-25-[address] JESE FALL Comment on above: Performed By: #### P SAD #### [facility] [address] [place], [place] [address] Dr. Bharati Aguiar Start: 05-05-[address] JESE FALL Comment on above: Performed By: #### P SAD ####[facility] [id number] [place], [place] [address]NbDr. Bharati Aguiar Start: 02-16-2022 Adult depression scr [...] DTaP,Tdap,Td Vaccine (6 - Td or Tdap) [facility] Start: 08-01-2027 Diabetes Screening Diabetes Screening [facility] Start: 05-03-2027 Diabetes Screening Diabetes Screening [facility] Start: 01-24-2027 Diabetes Screening Diabetes Screening [facility] Start: 10-29-2026 Diabetes Screening Diabetes Screening [facility] Start: 04-24-2026 Diabetes Screening Diabetes Screening [facility] Start: 02-02-2026 DIABETES SCREEN DIABETES SCREEN [facility] Start: 11-10-2025 DIABETES SCREEN DIABETES SCREEN [facility] Start: 08-11-2025 DIABETES SCREEN DIABETES SCREEN [facility] Start: 05-12-2025 DIABETES SCREEN DIABETES SCREEN [facility] Start: 02-17-2025 DIABETES SCREEN DIABETES SCREEN [facility] Start: 11-11-2024 DIABETES SCREEN DIABETES SCREEN [facility] Start: 11-07-2024 End: 11-07-2024 Follow-up encounter Hematology/Oncology Comment on above: 3 month lab follow up with xgiselle aguilar Start: 11-06-2024 End: 02-05-2025 CBC W Auto Differential panel - Blood COMPLETE BLOOD COUNT AND DIFFERENTIAL Lab Routine Malignant neoplasm of prostate (HCC) Essential hypertension 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, unspecified vessel or lesion type Type 2 diabetes mellitus without complication, without long-term current use of insulin (HCC) Expected: 11/06/2024, Expires: 02/05/2025 [facility] Work Phone: Comment on above: Expected: 11/06/2024, Expires: Start: 11-06-2024 End: 02-05-2025 Comprehensive metabolic 2000 panel - Serum or Plasma COMPREHENSIVE METABOLIC PANEL Lab Routine Malignant neoplasm of prostate (HCC) Essential hypertension 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, unspecified vessel or lesion type Type 2 diabetes mellitus without complication, without long-term current use of insulin (HCC) Expected: 11/06/2024, Expires: 02/05/2025 [facility] Comment on above: Expected: 11/06/2024, Expires: Start: 11-06-2024 End: 02-05-2025 Prostate specific Ag [Mass/volume] in Serum or Plasma PROSTATE-SPECIFIC ANTIGEN DIAGNOSTIC Lab Routine Malignant neoplasm of prostate (HCC) Essential hypertension 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, unspecified vessel or lesion type Type 2 diabetes mellitus without complication, without long-term current use of insulin (HCC) Expected: 11/06/2024, Expires: 02/05/2025 [facility] Comment on above: Expected: 11/06/2024, Expires: Start: 10-31-2024 End: 10-31-2024 Patient encounter procedure 10/31/2024 9:00 AM EDT Office Visit [facility] [address] [facility] [place] [place] [address] lab [facility] Comment on above: lab Start: 08-08-2024 End: 08-08-2024 Follow-up encounter Hematology/Oncology Comment on above: 3 month lab follow up with xgeva inj Start: 08-01-2024 End: 08-01-2024 Patient encounter procedure 08/01/2024 9:00 AM EST Office Visit [facility] [address] [facility] [place] [place] [address] 3 month labs [facility] Comment on above: 3 month labs Start: 07-17-2024 Advance Directive Discussion Advance Directive Discussion [facility] Start: 05-09-2024 End: 05-09-2024 Follow-up encounter Hematology/Oncology Comment on above: 3 month lab follow up with xgeva inj Start: 05-07-2024 End: 05-07-2024 Patient encounter procedure 05/07/2024 9:00 AM EDT Office Visit [facility] [address] [facility] [place] [place] [address] 3 month lab follow up with xgeva inj [facility] Comment on above: 3 month lab follow up with xgeva inj Start: 05-03-2024 End: 05-03-2024 Patient encounter procedure 05/03/2024 9:00 AM EDT Office Visit [facility] [address] [place] [address] [place] [address] 3 month lab follow up with xgeva inj [facility] Comment on above: 3 month lab follow up with xgeva inj Start: 04-29-2024 End: 07-29-2024 CBC W Auto Differential panel - Blood COMPLETE BLOOD COUNT AND DIFFERENTIAL Lab Routine Malignant neoplasm of prostate (HCC) Expected: 04/29/2024, Expires: 07/29/2024 [facility] Work Phone: Comment on above: Expected: 04/29/2024, Expires: Start: 04-29-2024 End: 07-29-2024 Comprehensive metabolic 2000 panel - Serum or Plasma COMPREHENSIVE METABOLIC PANEL Lab Routine Malignant neoplasm of prostate (HCC) Expected: 04/29/2024, Expires: 07/29/2024 [facility] Comment on above: Expected: 04/29/2024, Expires: Start: 04-29-2024 End: 07-29-2024 Prostate specific Ag [Mass/volume] in Serum or Plasma PROSTATE-SPECIFIC ANTIGEN DIAGNOSTIC Lab Routine Malignant neoplasm of prostate (HCC) Expected: 04/29/2024, Expires: 07/29/2024 [facility] Comment on above: Expected: 04/29/2024, Expires: Start: 03-17-2024 Covid-19 Vaccine ( season) Covid-19 Vaccine () [facility] Start: 03-17-2024 Influenza vaccination Influenza Vaccine (#1) [facility] Start: 02-26-2024 End: 02-26-2024 Patient encounter procedure 02/26/2024 10:10 AM EDT Office Visit [facility] [address] [place] [id number] Long Boo, 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-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 MD [address] [place] [address] [facility] Start: 11-03-2023 End: 02-02-2024 CBC W Auto Differential panel - Blood COMPLETE BLOOD COUNT AND DIFFERENTIAL Lab Routine Malignant neoplasm of prostate (HCC) Essential hypertension 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, unspecified vessel or lesion type Type 2 diabetes mellitus without complication, without long-term current use of insulin (HCC) Lesion of skin of right ear Abdominal discomfort Expected: 11/03/2023, Expires: 02/02/2024 [facility] Work Phone: Comment on above: Expected: 11/03/2023, Expires: 4 Start: 11-03-2023 End: 02-02-2024 Comprehensive metabolic 2000 panel - Serum or Plasma COMPREHENSIVE METABOLIC PANEL Lab Routine Malignant neoplasm of prostate (HCC) Essential hypertension 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, unspecified vessel or lesion type Type 2 diabetes mellitus without complication, without long-term current use of insulin (HCC) Lesion of skin of right ear Abdominal discomfort Expected: 11/03/2023, Expires: 02/02/2024 [facility] Work Phone: Comment on above: Expected: 11/03/2023, Expires: 4 Start: 11-03-2023 End: 02-02-2024 Prostate specific Ag [Mass/volume] in Serum or Plasma PROSTATE-SPECIFIC ANTIGEN DIAGNOSTIC Lab Routine Malignant neoplasm of prostate (HCC) Essential hypertension 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, unspecified vessel or lesion type Type 2 diabetes mellitus without complication, without long-term current use of insulin (HCC) Lesion of skin of right ear Abdominal discomfort Expected: 11/03/2023, Expires: 02/02/2024 [facility] [employer] Work Phone: Comment on above: Expected: 11/03/2023, Expires: 4 Start: 08-28-2023 End: 08-28-2023 Patient encounter procedure 08/28/2023 11:25 AM EST Office Visit [facility] [address] [place] [phone] MaryLong bradford, 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-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 MD [address] [place] [address] Arrived [facility] Comment on above: Arrived Start: 07-28-2023 End: 09-27-2023 CBC W Auto Differential panel - Blood CBC + DIFF Lab Routine Malignant neoplasm of prostate (HCC) 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, unspecified vessel or lesion type Essential hypertension Type 2 diabetes mellitus without complication, without long-term current use of insulin (HCC) Expected: 07/28/2023, Expires: 09/27/2023 [facility] Work Phone: Comment on above: Expected: 07/28/2023, Expires: Start: 07-28-2023 End: 09-27-2023 Comprehensive metabolic 2000 panel - Serum or Plasma COMP METABOLIC PANEL Lab Routine Malignant neoplasm of prostate (HCC) 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, unspecified vessel or lesion type Essential hypertension Type 2 diabetes mellitus without complication, without long-term current use of insulin (HCC) Expected: 07/28/2023, Expires: 09/27/2023 [facility] Work Phone: Comment on above: Expected: 07/28/2023, Expires: Start: 07-28-2023 End: 09-27-2023 Prostate specific Ag [Mass/volume] in Serum or Plasma PSA/PROSTSPECAG DIAG Lab Routine Malignant neoplasm of prostate (HCC) 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, unspecified vessel or lesion type Essential hypertension Type 2 diabetes mellitus without complication, without long-term current use of insulin (HCC) Expected: 07/28/2023, Expires: 09/27/2023 [facility] Work Phone: Comment on above: Expected: 07/28/2023, Expires: Start: 07-17-2023 Advance Directive Discussion Advance Directive Discussion [facility] Start: 07-17-2023 Behavioral Health Screening Behavioral Health Screening [facility] Start: 06-19-2023 Urine microalbumin profile [facility] Start: 05-03-2023 End: 07-03-2023 Basic metabolic 2000 panel - Serum or Plasma BASIC METABOLIC PNL Lab Routine Malignant neoplasm of prostate (HCC) Expected: 05/03/2023 (Approximate), Expires: 07/03/2023 [facility] Work Phone: Comment on above: Expected: 05/03/2023 (Approximate), Expi res: 07/03/2023 Start: 05-03-2023 End: 07-03-2023 CBC W Auto Differential panel - Blood CBC + DIFF Lab Routine Malignant neoplasm of prostate (HCC) Expected: 05/03/2023 (Approximate), Expires: 07/03/2023 [facility] Work Phone: Comment on above: Expected: 05/03/2023 (Approximate), Expi res: 07/03/2023 Start: 05-03-2023 End: 07-03-2023 Prostate specific Ag [Mass/volume] in Serum or Plasma PSA/PROSTSPECAG DIAG Lab Routine Malignant neoplasm of prostate (HCC) Expected: 05/03/2023 (Approximate), Expires: 07/03/2023 [facility] Work Phone: Comment on above: Expected: 05/03/2023 (Approximate), Expi res: 07/03/2023 Start: 05-03-2023 End: 07-03-2023 Testosterone [Mass/volume] in Serum or Plasma TESTOSTERONE TOTAL Lab Routine Malignant neoplasm of prostate (HCC) Expected: 05/03/2023 (Approximate), Expires: 07/03/2023 [facility] Work Phone: Comment on above: Expected: 05/03/2023 (Approximate), Expi res: 07/03/2023 Start: 03-17-2023 Covid-19 Vaccine () Covid-19 Vaccine () [facility] Start: 03-17-2023 Influenza vaccination [facility] Start: 02-16-2023 Adult depression screening assessment DEPRESSION SCREENING [facility] Start: 02-09-2023 End: 04-11-2023 CBC W Auto Differential panel - Blood CBC + DIFF Lab Routine Malignant neoplasm of prostate (HCC) 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, unspecified vessel or lesion type Essential hypertension Type 2 diabetes mellitus without complication, without long-term current use of insulin (HCC) Expected: 02/09/2023, Expires: 04/11/2023 [facility] Work Phone: Comment on above: Expected: 02/09/2023, Expires: 3 Start: 02-09-2023 End: 04-11-2023 Comprehensive metabolic 2000 panel - Serum or Plasma COMP METABOLIC PANEL Lab Routine Malignant neoplasm of prostate (HCC) 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, unspecified vessel or lesion type Essential hypertension Type 2 diabetes mellitus without complication, without long-term current use of insulin (HCC) Expected: 02/09/2023, Expires: 04/11/2023 [facility] Work Phone: Comment on above: Expected: 02/09/2023, Expires: 3 Start: 02-09-2023 End: 04-11-2023 Prostate specific Ag [Mass/volume] in Serum or Plasma PSA/PROSTSPECAG DIAG Lab Routine Malignant neoplasm of prostate (HCC) 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, unspecified vessel or lesion type Essential hypertension Type 2 diabetes mellitus without complication, without long-term current use of insulin (HCC) Expected: 02/09/2023, Expires: 04/11/2023 [facility] Work Phone: Comment on above: Expected: 02/09/2023, Expires: 3 Start: 11-10-2022 Adult depression screening assessment DEPRESSION SCREENING [facility] Start: 08-22-2022 COVID-19 VACCINE (6 - Moderna series) COVID-19 VACCINE (6 - Moderna series) [facility] Start: 07-17-2022 ADVANCE DIRECTIVE DISCUSSION ADVANCE DIRECTIVE DISCUSSION [facility] Start: 07-17-2022 DEPRESSION ASSESSMENT DEPRESSION ASSESSMENT [facility] Start: 05-03-2022 Adult depression screening assessment DEPRESSION SCREENING [facility] Start: 05-03-2022 End: 07-03-2022 CBC W Auto Differential panel - Blood CBC + DIFF Lab Routine Malignant neoplasm of prostate (HCC) Expected: 05/03/2022, Expires: 07/03/2022 [facility] Work Phone: Comment on above: Expected: 05/03/2022, Expires: 2 Start: 05-03-2022 End: 07-03-2022 Comprehensive metabolic 2000 panel - Serum or Plasma COMP METABOLIC PANEL Lab Routine Malignant neoplasm of prostate (HCC) Expected: 05/03/2022, Expires: 07/03/2022 [facility] Work Phone: Comment on above: Expected: 05/03/2022, Expires: 2 Start: 05-03-2022 End: 07-03-2022 Prostate specific Ag [Mass/volume] in Serum or Plasma PSA/PROSTSPECAG DIAG Lab Routine Malignant neoplasm of prostate (HCC) Expected: 05/03/2022, Expires: 07/03/2022 [facility] Work Phone: Comment on above: Expected: 05/03/2022, Expires: 2 Start: 03-17-2022 Influenza vaccination [facility] Start: 11-02-2021 End: 01-02-2022 CBC W Auto Differential panel - Blood CBC + DIFF Lab Routine Malignant neoplasm of prostate (HCC) Expected: 11/02/2021, Expires: 01/02/2022 [facility] Work Phone: Comment on above: Expected: 11/02/2021, Expires: 2 Start: 11-02-2021 End: 01-02-2022 Comprehensive metabolic 2000 panel - Serum or Plasma COMP METABOLIC PANEL Lab Routine Malignant neoplasm of prostate (HCC) Expected: 11/02/2021, Expires: 01/02/2022 [facility] Work Phone: Comment on above: Expected: 11/02/2021, Expires: 2 Start: 09-14-2021 COVID-19 VACCINE (5 - Booster) COVID-19 VACCINE (5 - Booster) [facility] Start: 08-17-2021 COVID-19 VACCINE (4 - Booster for Moderna series) COVID-19 VACCINE (4 - Booster for Moderna series) [facility] Start: 07-17-2021 ADVANCE DIRECTIVE DISCUSSION ADVANCE DIRECTIVE DISCUSSION [facility] Start: 07-17-2021 DEPRESSION ASSESSMENT DEPRESSION ASSESSMENT [facility] Start: 02-22-2021 COVID-19 VACCINE (3 - Booster for Moderna series) COVID-19 VACCINE (3 - Booster for Moderna series) [facility] Start: 06-07-2015 PNEUMOVAX AGE 65 AND OVER WITH 5YR LOOKBACK (#1) PNEUMOVAX AGE 65 AND OVER WITH 5YR LOOKBACK (#1) [facility] Start: 06-20-2013 Urine microalbumin profile DTAP,TDAP,TD (1 - Tdap) [facility] Start: 08-22-2012 SHINGRIX VACCINE (2 of 3) SHINGRIX VACCINE (2 of 3) [facility] Start: 2006 RSV Vaccine (1 - 1-dose 60+ series) RSV Vaccine (1 - 1-dose 60+ series) [facility] Start: 02-14-1996 SHINGRIX VACCINE (1 of 2) SHINGRIX VACCINE (1 of 2) [facility] Start: 1991 COLOGUARD (FIT-DNA) COLOGUARD (FIT-DNA) [facility] Start: 1991 Colonoscopy COLONOSCOPY [facility] Start: 1991 COLORECTAL CANCER SCREENING COLORECTAL CANCER SCREENING [facility] Start: [address] COLONOGRAPHY [facility] Start: 1991 DIABETES SCREEN DIABETES SCREEN [facility] Start: 1991 FECAL OCCULT BLOOD FECAL OCCULT BLOOD [facility] Start: 1991 SIGMOIDOSCOPY SIGMOIDOSCOPY [facility] Start: 1981 LIPID SCREEN LIPID SCREEN [facility] Start: 02-14-1964 Anxiety Screening Anxiety Screening [facility] Start: 02-14-1964 Depression Screening Depression Screening [facility] Start: 02-14-1964 HEPATITIS C SCREENING HEPATITIS C SCREENING [facility] Start: 02-14-1964 Hepatitis C screening Hepatitis C Screening [facility] Dermatopathology exam Dermatopat hology exam Pathology and Cytology Timed Neoplasm of unspecified behavior of bone, soft tissue, and skin Release Upon Ordering for 1 Occurrences starting 08/28/2023 [facility] Work Phone: Comment on above: Release Upon Ordering for 1 Occurrences starting 08/28/2023 MR Cervical spine WO contrast [facility] US Extremity [facility] Immunizations Immunization Date Immunization Notes Care Provider Iris quinonez 03-26-2024 influenza, high dose seasonal, preservative-free [facility] 05-01-2023 influenza virus vaccine, unspecified formulation [facility] 05-01-2023 influenza, high dose seasonal, preservative-free Jamar Fall Other [facility] 04-28-2022 influenza nasal, unspecified formulation Lab/[facility] Work Phone: [facility] 04-28-2022 influenza, high-dose , quadrivalent vaccine (FLUZONE HIGH DOSE QUADRIVALENT) [facility] Work Phone: [facility] 04-28-2022 influenza, high dose seasonal, preservative-free Jamar Fall Other [facility] 04-28-2022 influenza virus vaccine, unspecified formulation [facility] Work Phone: [facility] 04-21-2022 COVID-19 booster vaccine, age 12+ yr, bivalent (MODERNA) [facility] Work Phone: [facility] Comment on above: Result Comment: 2023: [id number] 01-21-2022 COVID-19 Vaccine Moderna - Documentation Purposes Only Jamar Fall Other [facility] Comment on above: Result Comment: 2023: [id number] 05-17-2021 COVID-19 Vaccine Moderna - Documentation Purposes Only Jamar Fall Other [facility] Comment on above: Result Comment: 2023: [id number] 04-22-2021 influenza virus vaccine, split virus (incl. purified surface antigen) Jamar Fall Other [facility] 04-22-2021 influenza virus vaccine, unspecified formulation [facility] 04-16-2021 influenza nasal, unspecified formulation Marco A Esqueda MD Work Phone: [facility] 04-16-2021 influenza virus vaccine, unspecified formulation Anthonycindy SCRUGGS [facility] 09-22-2020 COVID-19 Vaccine Moderna - Documentation Purposes Only Jamar Fall Other [facility] 08-26-2020 SARS-CoV-2 (COVID-19 ) Ad26 vaccine, recombinant Anthony SCRUGGS [facility] 08-24-2020 COVID-19 original vaccine, full dose, monovalent (MODERNA) [facility] Work Phone: [facility] 07-17-2020 SARS-CoV-2 (COVID-19 ) [id number] vaccine Anthony SCRUGGS [facility] Comment on above: Result Comment: pt d oes not know the dates but states that he is fully vaccinated 04-23-2020 influenza virus vaccine, split virus (incl. purified surface antigen) Jamar Fall Other [facility] 04-23-2020 influenza virus vaccine, unspecified formulation [facility] 04-22-2019 influenza virus vaccine, split virus (incl. purified surface antigen) Jamar Fall Other [facility] 04-22-2019 influenza virus vaccine, unspecified formulation [facility] 04-16-2019 influenza nasal, unspecified formulation Marco A Esqueda MD Work Phone: [facility] 08-20-2018 zoster vaccine recombinant Marco A Esqueda MD Work Phone: [facility] 06-11-2018 zoster vaccine recombinant Marco A Esqueda MD Work Phone: [facility] 04-16-2018 influenza nasal, unspecified formulation Marco A Esqueda MD Work Phone: [facility] 03-27-2018 [id number] adjuvant [facility] Work Phone: [facility] 03-27-2018 influenza nasal, unspecified formulation [facility] Work Phone: [facility] 03-27-2018 influenza virus vaccine, split virus (incl. purified surface antigen) Jamar Fall Other [employer] Other 03-27-2018 influenza virus vaccine, unspecified formulation Anthony SCRUGGS [facility] 03-27-2018 Seasonal trivalent influenza vaccine, adjuvanted, preservative free Marco A Esqueda MD Work Phone: [facility] 06-12-2017 pneumococcal polysaccharide vaccine, 23 valent Marco A Esqueda MD Work Phone: [facility] 06-01-2017 pneumococcal polysaccharide vaccine, 23 valent Jamar Fall Other [facility] 06-01-2017 Prevnar 20 Jamar Fall Other [facility] 05-31-2017 influenza nasal, unspecified formulation [facility] Work Phone: [facility] 05-31-2017 influenza virus vaccine, unspecified formulation Anthony SCRUGGS [facility] 05-31-2017 influenza, injectabl e, quadrivalent, preservative free Marco A Esqueda MD Work Phone: [facility] 04-03-2017 influenza nasal, unspecified formulation [facility] [place] Work Phone: [facility] 04-03-2017 influenza virus vaccine, split virus (incl. purified surface antigen) Jamar Fall Other [employer] Other 04-03-2017 influenza virus vaccine, unspecified formulation Anthony SCRUGGS [facility] 04-03-2017 influenza, high dose seasonal, preservative-free Marco A Esqueda MD Work Phone: [facility] 03-23-2017 influenza nasal, unspecified formulation Marco A Esqueda MD Work Phone: [facility] 04-01-2016 influenza virus vaccine, split virus (incl. purified surface antigen) Jamar Fall Other [facility] 04-01-2016 influenza virus vaccine, unspecified formulation [facility] 03-31-2016 influenza nasal, unspecified formulation Marco A Esqueda MD Work Phone: [facility] 05-11-2015 influenza nasal, unspecified formulation Marco A Esqueda MD Work Phone: [facility] 05-11-2015 influenza, seasonal, injectable, preservative free [facility] Work Phone: [facility] 05-11-2015 pneumococcal conjuga te vaccine, 13 valent Marco A Esqueda MD Work Phone: [facility] 04-29-2015 pneumococcal polysaccharide vaccine, 23 valent Marco A Esqueda MD Work Phone: [facility] 06-09-2014 influenza nasal, unspecified formulation [facility] Work Phone: [facility] 06-09-2014 influenza, seasonal, injectable, preservative free Marco A Esqueda MD Work Phone: [facility] 06-19-2013 diphtheria, tetanus toxoids and acellular pertussis vaccine, unspecified formulation Marco A Esqueda MD Work Phone: [facility] 06-19-2013 tetanus and diphther ia toxoids, not adsorbed, for adult use Marco A Esqueda MD Work Phone: [facility] 05-23-2013 influenza nasal, unspecified formulation Marco A Esqueda MD Work Phone: [facility] 04-24-2013 tetanus and diphther ia toxoids, adsorbed, preservative free, for adult use (5 Lf of tetanus toxoid and 2 Lf of diphtheria toxoid) Jamar Fall Other [facility] 06-27-2012 zoster vaccine, live Marco A lake MD Work Phone: [facility] 06-11-2012 influenza nasal, unspecified formulation Marco A Esqueda MD Work Phone: [facility] 06-02-2011 influenza nasal, unspecified formulation Marco A Esqueda MD Work Phone: [facility] 06-23-2010 pneumococcal polysaccharide vaccine, 23 valent Jamar Fall Other [facility] 06-07-2010 pneumococcal polysaccharide vaccine, 23 valent Marco A Esqueda MD Work Phone: [facility] 06-07-2010 pneumococcal vaccine , unspecified formulation Marco A Esqueda MD Work Phone: [facility] 05-28-2010 influenza nasal, unspecified formulation Marco A Esqueda MD Work Phone: [facility] 01-14-2010 pneumococcal polysaccharide vaccine, 23 valent Jamar Fall Other [facility] 05-25-2009 influenza nasal, unspecified formulation Marco A Esqueda MD Work Phone: [facility] 06-09-2008 influenza nasal, unspecified formulation Marco A Esqueda MD Work Phone: [facility] 07-23-2003 influenza virus vaccine, whole virus Marco A Esqueda MD Work Phone: [facility] 01-14-2003 diphtheria, tetanus toxoids and acellular pertussis vaccine, unspecified formulation Jamar Fall Other [facility] 01-10-2003 TD(adult) unspecifie d formulation Marco A Esqueda MD Work Phone: [facility] 07-03-2002 influenza nasal, unspecified formulation Marco A Esqueda MD Work Phone: [facility] Payers Date Payer Category Payer Unknown [employer] MEDICARE SUPPLEMENT [id number] 2019-Present [phone] [address] [place] [address] Indemnity [id number] 2019 Unknown [id number]. [id number] 2011 Medicare MEDICARE MEDICAR E A AND B [id number] 2011-Present [phone] [address] [address] [place] [address] Medicare [id number] 2011 Medicare [id number]. [id number] 1959 Medicare [id number] [id number] 1959 Self-pay 1959 Unknown [id number] 1946 Unknown [id number] 2.16.840.1.399050.3.579.2.593 1946 Unknown [id number] 2.16.840.1.974940.3.579.2.593 1946 Unknown [id number] 2.16.840.1.436812.3.579.2.593 1946 Unknown [id number] 2.16.840.1.554187.3.579.2.593 1946 Unknown [id number] 2.16.840.1.142600.3.579.2.593 1946 Unknown [id number] 2.16.840.1.332369.3.579.2.1259 1946 Unknown [id number] 2.16.840.1.675510.3.579.2.1259 1946 Unknown [id number] 2.16.840.1.683305.3.579.2.1259 1946 Unknown [id number] 2.16.840.1.869881.3.579.2.1259 1946 Unknown [id number] 2.16.840.1.669583.3.579.2.1259 1946 Unknown [id number] 2.16.840.1.787598.3.579.2.727 1946 Unknown [id number] 2.16.840.1.918555.3.579.2.727 1946 Unknown [id number] 2.16.840.1.077556.3.579.2.727 Unknown [id number] 2.16.840.1.642719.3.579.2.593 Unknown [id number] 2.16.840.1.285938.3.579.2.593 Unknown [id number] 2.16.840.1.729321.3.579.2.593 Social History Date Type Detail Facility Start: 11-08-2021 End: 08-11-2022 Tobacco smoking status NHIS Never smoked tobacco [facility] Start: 10-25-2021 End: 11-02-2023 Alcohol intake Current drinker of alcohol (finding) [facility] Start: 08-19-2014 History SDOH Alcohol Comment 1 day/wk [facility] Start: 1945 Sex Assigned At Not on file [facility] Start: 10-18-2021 End: 05-12-2022 Exposure to SARS-CoV-2 (event) Not sure [facility] Tobacco smoking status Never [facility] Start: 02-02-2023 End: 01-31-2024 Sex Assigned At Male [facility] Start: 1945 Sex Assigned At Male [facility] Start: 01-12-2018 End: 08-11-2022 Tobacco use and exposure Smokeless tobacco non-user [facility] Start: 02-02-2023 End: 01-31-2024 History of Social function [facility] Start: 02-11-2022 Gender identity Identifies as male gender (finding) [facility] Start: 02-11-2022 Sexual orientation Heterosexual (fin ding) [facility] How often to you hav e [...] cups per day [facility] Start: 09-06-2023 End: 09-06-2023 Tobacco smoking status NHIS Ex-smoker (finding) [facility] Start: 09-02-2024 Sex Male (finding) [facility] NEGATED: Highlighted rowStart: ARPITA History of tobacco use Passive smoker [facility] Medical Equipment Procedure Code Equipment Code Equipment Origin al Text Equipment Identifier Dates Start: 10-26-2021 End: 05-12-2022 Comment on above: 1 Each once daily. T o test blood sugars 1 Each once daily. T o test blood sugar Blood Sugar Diagnostic (Contour Next Test Strips) strip Start: 10-10-2023 Lancets (Lancets,Thin) [facility] Start: 09-08-2023 Blood Sugar Diagnostic (Contour Next Test Strips) strip Start: 09-08-2023 End: 10-10-2023 Blood Sugar Diagnostic (Contour Next Test Strips) strip Start: 10-10-2023 Lancets (Lancets,Thin) [facility] Start: 09-08-2023 Blood Sugar Diagnostic (Contour Next Test Strips) strip Start: 09-08-2023 End: 10-10-2023 Blood Sugar Diagnostic (Contour Next Test Strips) strip Start: 10-10-2023 Lancets (Lancets,Thin) [facility] Start: 09-08-2023 Blood Sugar Diagnostic (Contour Next Test Strips) strip Start: 09-08-2023 End: 10-10-2023 Functional Status Date Assessment Result Facility 04-19-2024 Functional Status N/A [facility] 10-20-2023 Functional Status N/A [facility] 04-17-2023 Functional Status N/A [facility] 05-13-2022 Functional Status N/A [facility] Clinical Notes 07-17-2014 to 08-07-2024 Christo Howard APRN.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 MD - 08/07/2024 10:42 AM EST Note Date & Type Note Facility 08-07-2024 Note HNO ID: [id number] Author: CHRISTO HOWARD APRN.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 MD Service: ? Author Type: Nurse Practitioner Type: [...] mg 24 hr tablet Take by mouth. 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 [...] 1.58 10/25/2021 2.6 (more content not included)... [facility] 08-07-2024 History of Present illness Narrative PATIENT [...] mg 24 hr tablet Take by mouth. 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 [...] 08/01/2024 0.19 RADIOLOGY/OTHER STUDIES: 11/05/2021 CT chest/abdomen/pelvis ([facility]) Several sclerotic lesions consistent with metastatic disease. No evidence of visceral organ involvement or lymphadenopathy. 11/05/2021 Bone scan ([facility]) Multifocal osseous metastasis including the left femur at the lesser trochanter, right pubis symphysis, multiple ribs bilaterally. 01/22/2018 Nuclear bone scan ([facility]) New focal increased activity left frontal bone, left T8 vertebral body. 01/22/2018 MRI pelvis ([facility]) 4.5 cm area of T2 signal in the prostate bed. 07/24/2014 CT abdomen/pelvis [place] Diffuse prostatic enlargement with indentation of the [...] consistent with stage IIIC (pT2b, N0, M0), Eagan 5+4 equal 9. Postop the patient's PSA [...] per PCP with CT scan monitoring. Christo Howadr APRN.CNP CC: Dr. Anthony Scruggs I spent a total of 30 minutes on the date of the service which included preparing to see the patient, [id number]-[id number] patient care, completing clinical documentation, obtaining and/or reviewing separately obtained history, performing a medically appropriate examination, counseling and educating the patient/family/caregiver, ordering medications, tests, or procedures, independently interpreting results (not separately reported), and communicating results to the patient/family/caregiver. documented in this encounter [facility] 06-10-2024 Evaluation note Diagnosis Onset Date Resolution Diarrhea acute June 10, 2024 2:02pm Malignant neoplasm of prostate July 17, 2014 acute June 10, 2024 2:02pm Type 2 diabetes mellitus with hyperglycemia acute May 2:02pm ASHD (arteriosclerotic heart disease) acute September 02, 2024 9:28am Cervical spondylosis acute 2024 9:28am Essential hypertension acute Fe bru2024 9:28am Hypercholesterolemia acute 2024 9:28am Malignant neoplasm of prostate July 17, 2014 acute September 02, 2024 9:28am Medicare annual wellness visit, subsequent acute September 02, 2024 9:28am Nonrheumatic aortic valve stenosis acute September 02, 2024 9:28am GRADY (obstructive sleep apnea) acute September 02, 2024 9:28am Type 2 diabetes mellitus with hyperglycemia acute August 9:28am [facility] Work Phone: [phone] Telephone encounter Note* Telephone Encounter - Aida Luo RPh - 05/08/2024 8:53 AM EDT This prescription confirms Pablo' re-enrollment in the Xtandi free drug program for 2024. Thank you Josh Luo PharmD, BCOP [facility] Work Phone: [phone] Miscellaneous Notes* Telephone Encounter - Aida Luo RPh - 05/08/2024 8:53 AM EDT This prescription confirms Pablo' re-enrollment in the Xtandi free drug program for 2024. Thank you Josh Luo PharmD, BCOP documented [facility]24 NoteHNO ID: [id number] Author: MARCO A ESQUEDA MD Service: ? [...] mg 24 hr tablet Take by mouth. 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 [...] 08/11/2022 0.11 10/25/2022 0.1 (more content not included)...[facility]10-23-2024 History of Present illness Narrative* Marco A Esqueda MD - 05/08/2024 8:13 AM EDT PATIENT NAME: Pablo Felix DATE: 05/09/2024 PRIMARY [...] his PSA increased slightly, and per Dr. ScruggsLupron was resumed on 04/19/2024 with plans to [...] mg 24 hr tablet Take by mouth. 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 [...] 05/03/2024 0.18 RADIOLOGY/OTHER STUDIES: 11/05/2021 CT chest/abdomen/pelvis ([facility]) Several sclerotic lesions consistent with metastatic disease. No evidence of visceral organ involvement or lymphadenopathy. 11/05/2021 Bone scan ([facility]) Multifocal osseous metastasis including the left femur at the lesser trochanter, right pubis symphysis, multiple ribs bilaterally. 01/22/2018 Nuclear bone scan ([facility]) New focal increased activity left frontal bone, left T8 vertebral body. 01/22/2018 MRI pelvis ([facility]) 4.5 cm area of T2 signal in the prostate bed. 07/24/2014 CT abdomen/pelvis [place] Diffuse prostatic enlargement with indentation of the bladder base. Incidental 2.5 x 1 cm exophytic hypodense lesion adjacent to the pancreatic body. ASSESSMENT/PLAN: 1. Metastatic prostate cancer (HCC) - ICD9: 185, ICD10: C61 (primary diagnosis) The patient was diagnosed with early-stage high-grade prostate cancer in June 2014 (TRUS [id number]/02/2014). He underwent a radical prostatectomy on 11/05/2014. Pathology consistent with stage IIIC (pT2b, N0, M0), Eagan 5+4 equal 9. Postop the patient's PSA initially became undetectable. By December 2017 the patient's PSA increased to 0.34. Staging studies January 2018 revealed no evidence of metastases. He subsequently was started on Lupron 02/12/2018. A received external beam radiation therapy to the prostate bed 02/05/2018 - 03/30/2018. The patient's PSA once again became undetectable. However,by September 2019 the PSA increased to 0.09. [...] CC: Dr. Anthony Scruggs documented [facility] Hospital Discharge instructions Patient Education 04/19/2024 08:45:03 [...] under a microscope. This is called the Ulcrecia score and the total score can range from 6 10, indicating how likely it is that the cancer will spread (metastasize) to other parts of the body. The higher the score, the greater thelikelihood that the cancer will spread. Lucrecia 6 or lower: This indicates that the cancer cells look similar to normal prostate cells (well differentiated). Eagan 7: This indicates that the cancer cells [...] stress of having cancer. General instructions Take ylgj-xef-ujdwsgp and prescription medicines only as told by your health care provider. If you have to go to the hospital, notify your cancer specialist (oncologist). Keep all follow-up visits. This is important. Where to find more information [place] [employer]: www.cancer.org [place] Society of Clinical Oncology: www.cancer.net National Cancer [place]: www.cancer.gov Contact a health care provider if: [...] provider. Document Revised: 09/29/2021 Document Reviewed: 09/29/2021 Amazing Photo Letters Patient Education 2023 [place]. Follow Up Care 10/20/2023 09:58:12 With:KAEL JAMES, Anthony Lee, URL Address: [address] [place], [place] [address]- When: Unknown [facility] 10-04-2024 NotePatient Education Oncology Prostate Cancer The prostate is [...] from the prostate and checked under a microscope(prostate biopsy). ? An imaging test called transrectal [...] greater thelikelihood that the cancer will spread. ? Eagan 6 or lower: This indicates that the [...] seeds, wires, or tubes that are implanted intothe prostate gla (more content not included)...[facility]09-16-2024 Telephone encounter Note* Telephone Encounter - Aida Luo [facility] - 04/01/2024 3:59 PM EDT Recd phone call from [facility] that they are unable to obtain the Xtandi 80mg tablets a thistime and requested a script for the 40 mg dosing. Order pending Josh Luo PharmD, BCOP [facility] Work Phone: [phone] Miscellaneous Notes* Telephone Encounter - Aida Luo RPh - 04/01/2024 3:59 PM EDT Recd phone call from [facility] that they are unable to obtain the Xtandi 80mg tablets a thistime and requested a script for the 40 mg dosing. Order pending Josh Luo PharmD, BCOP documented in this encounterMedina Hospital09-13-2024 NoteCoronary artery disease is stable, no concerning symptoms currently overall is doing well he is planning bilateral carpal tunnel surgery soon with Dr. Charlton. Continue GDMT-continue aspirin, Lipitor, metoprolol, and lisinopril continue risk factor modifications- heart healthy diet, regular exercise as tolerated and continue all medications.[facility] 03-29-2024 NoteHypertension is well-controlled at 127/51 Continue lisinopril/hydrochlorothiazide and metoprolol. Renal function normalTriHealth Bethes[facility] North Hospital09-13-2024 NoteLipid abnormalities are stable continue Lipitor 40 mg daily lipid profile is well-controlled and liver function is normalUnParkview [facility] 03-29-2024 NoteReviewed echocardiogram from July 08 moderate aortic stenosis noted and reviewed echo with patient and his No concerning symptoms at this time patient would like symptoms including palpitations, lightheaded dizziness, syncope, chest pain, worsening shortness of breath and he voiced understanding Monitor with echocardiogramUnParkview Health09-13-2024 Note RCRI=1 points Class II Risk 6.0 % 30-day risk of , MD, or cardiac arrest From a cardiac perspective pt may proceed with carpal tunnel surgery, he is a moderate risk for a low risk surgery. She may hold aspirin 5-7 days prior and resume post op. Please monitor hemodynamics carefully and prevent any major fluid shifts.[facility]09-13-2024 NotePt is here for surgery clearance. Pt denies chest pain, sob, palpatations Review of Systems Musculoskeletal: Positive for arthritis, back pain, joint pain and myalgias. All other systems reviewed and are negative.[facility] 03-29-2024 NoteUTP CARDIOLOGY PROGRESS NOTE HPI: Pablo Felix is a 79 [...] AV stenosis and regur (more content not included)...[facility]07-19-2024 Instructions* Patient Instructions* Lynne Alarcon APRN.[facility] - 02/02/2024 11:37 AM EDT Possible signs [...] troubles swallowing, increasing confusion documented in this encounterMedina Hospital07-[facility]24 History of Present illness Narrative* Lynne Alarcon APRN.CNP - 02/02/2024 11:30 AM EDT PATIENT NAME: Pablo Felix DATE: February 02, [...] mg 24 hr tablet Take by mouth. 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 [...] 01/25/2024 0.15 RADIOLOGY/OTHER STUDIES: 11/05/2021 CT chest/abdomen/pelvis ([facility]) Several sclerotic lesions consistent with metastatic disease. No evidence of visceral organ involvement or lymphadenopathy. 11/05/2021 Bone scan ([facility]) Multifocal osseous metastasis including the left femur at the lesser trochanter, right pubis symphysis, multiple ribs bilaterally. 01/22/2018 Nuclear bone scan ([facility]) New focal increased activity left frontal bone, left T8 vertebral body. 01/22/2018 MRI pelvis ([facility]) 4.5 cm area of T2 signal in the prostate bed. 07/24/2014 CT abdomen/pelvis [place] Diffuse prostatic enlargement with indentation of the bladder base. Incidental 2.5 x 1 cm exophytic hypodense lesion adjacent to the pancreatic body. ASSESSMENT/PLAN: 1. Metastatic prostate cancer (HCC) - ICD9: 185, ICD10: C61 (primary diagnosis) The patient was diagnosed with early-stage high-grade prostate cancer in June 2014 (TRUS [id number]/02/2014). He underwent a radical prostatectomy on 11/05/2014. [...] suppressed at <12. Bone scan obtained at [facility] 11/05/2021 revealed multiple bone metastases. CT scans [...] mg daily plus Xgeva every 3 months. Hewill receive Xgeva today. We will see him [...] vague abdominal discomfort after eating certain foods. Nosevere pain, nausea/vomiting or change in bowel habits. [...] up. Lynne Alarcon APRN.CNP Hematology/Oncology [facility] [phone] CC: Dr. Anthony Scruggs documented in this encounterMedina Hospital07-19-2024 NoteHNO ID: [id number] Author: LYNNE ALARCON APRN.CNP Service: ? Author [...] mg 24 hr tablet Take by mouth. 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 [...] 06/17/2020 0.43 09/07/2020 0.84 (more content not included)...[facility] 11-02-2023 NoteHNO ID: [id number] Author: CHRISTO HOWARD APRN.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 MD Service: ? Author Type: Nurse Practitioner Type: [...] mg 24 hr tablet Take by mouth. 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 [...] 01/21/2019 <0.13 09/26/2019 0.09 (more content not included)...[facility]04-18-2024 History of Present illness Narrative* Christo Howard, ROCHELLE.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 MD - 11/02/2023 9:28 AM EDT PATIENT NAME: Pablo Felix DATE: 11/02/2023 PRIMARY [...] mg 24 hr tablet Take by mouth. 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 [...] 10/29/2023 0.16 RADIOLOGY/OTHER STUDIES: 11/05/2021 CT chest/abdomen/pelvis ([facility]) Several sclerotic lesions consistent with metastatic disease. No evidence of visceral organ involvement or lymphadenopathy. 11/05/2021 Bone scan ([facility]) Multifocal osseous metastasis including the left femur at the lesser trochanter, right pubis symphysis, multiple ribs bilaterally. 01/22/2018 Nuclear bone scan ([facility]) New focal increased activity left frontal bone, left T8 vertebral body. 01/22/2018 MRI pelvis ([facility]) 4.5 cm area of T2 signal in the prostate bed. 07/24/2014 CT abdomen/pelvis ([facility] Diffuse prostatic enlargement with indentation of the bladder base. Incidental 2.5 x 1 cm exophytic hypodense lesion adjacent to the pancreatic body. ASSESSMENT/PLAN: 1. Metastatic prostate cancer (HCC) - ICD9: 185, ICD10: C61 (primary diagnosis) The patient was diagnosed with early-stage high-grade prostate cancer in June 2014 (TRUS [id number]/02/2014). He underwent a radical prostatectomy on 11/05/2014. [...] suppressed at <12. Bone scan obtained at [facility] 11/05/2021 revealed multiple bone metastases. CT scans [...] mg daily plus Xgeva every 3 months. Kanu receive Xgeva today. We will see him [...] vague abdominal discomfort after eating certain foods. Nosevere pain, nausea/vomiting or change in bowel habits. I suggested referral to GI to evaluate for EGD, but the patient requested to hold off. I suggested trial of OTC omeprazole 20 mg daily to take as needed. If GI symptoms worsen would reconsider referral to GI. Christo Howard APRN.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 MD CC: Dr. Anthony Scruggs I spent a total of 30 minutes on the date of the service which included preparing to see the patient, viwp-vu-smdl patient care, completing clinical documentation, obtaining and/or reviewing separately obtained history, performing a medically appropriate examination, counseling and educating the pat ient/family/caregiver, ordering medications, tests, or procedures, independently interpreting results (not separately reported), and communicating results to the patient/family/caregiver. documented in this encounterMedina Hospital04-05-2024 Hospital Discharge instructions Patient Education 10/20/2023 09:54:58 [...] under a microscope. This is called the Eagan score and the total score can range from 6 10, indicating how likely it is that the cancer will spread (metastasize) to other parts of the body. The higher the score, the greater thelikelihood that the cancer will spread. Eagan 6 or lower: This indicates that the cancer cells look similar to normal prostate cells (well differentiated). Lucrecia 7: This indicates that the cancer cells look somewhat similar to normal prostate cells (moderately differentiated). Eagan 8, 9, or 10: This indicates that [...] stress of having cancer. General instructions Take bqoc-amh-tbrgxpv and prescription medicines only as told by your health care provider. If you have to go to the hospital, notify your cancer specialist (oncologist). Keep all follow-up visits. This is important. Where to find more information [place] [employer]: www.cancer.org [place] Society of Clinical Oncology: www.cancer.net National Cancer [place]: www.cancer.gov Contact a health care provider if: [...] provider. Document Revised: 09/29/2021 Document Reviewed: 09/29/2021 Amazing Photo Letters Patient Education 2022 [place]. Follow Up Care 04/17/2023 09:25:02 With:KAEL JAMES, Anthony Lee, URL Address: [address] [place], [place] [address]- When: Unknown [facility] 02-12-2024 History of Present illness Narrative* Long Boo, ROCHELLE-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 MD - 08/28/2023 11:25 AM EST Images from the original note were not [...] lesions that fail to resolve should be re- evaluated. Cryotherapy performed today; see procedure note Diagnosis: Actinic keratosis Indication: Precancerous Location: see skin exam Consent: Verbal consent was obtained and risks were discussed, including, but not limited to risks of scarring, darker or angiography nurse pigmentary changes, recurrence, incomplete removal and infection. [...] biopsy results, 6 months documented in this encounterRanken Jordan Pediatric Specialty [id number] Evaluation note* Encounter Date Diagnosis Assessment Notes Treatment Notes Treatment Clinical Notes Aug, Medicare annual wellness visit, subsequent [...] amended by provider signed below. Aug, ASHD (arteriosclerotic heart disease) (ICD-10 - [...] use, the patient reduces the risk for MD, CVA, HTN, cardiac dysrhythmias and sudden cardiac [...] retention cyst and frontal sinus mass benign [facility] Other 01-19-2024 Evaluation note* Encounter Date Diagnosis Assessment Notes Treatment Notes Treatment Clinical Notes Jul, Pancreatic mass (ICD-10 - K86.89) MRCP: 4cm mass - 2022 - previously completed EUS bx at [facility] - stable in size from 2021 [facility] Chief Complaint: Patient here [...] should problems arise Bridger Mulligan MD, MPH, [facility], [facility], [facility] [facility]ITAL Interventional Cardiology Pager Email: 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 He has had EUS/FNA in 2015 w/o f/u appointments scheduled. New GI symptoms [...] malignant neoplasm of bone (ICD-10 - C79.51) [facility] Other 10-12-2023 History of Present illness Narrative* Christo Howard, ROCHELLE.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 MD - 04/27/2023 10:00 AM EDT PATIENT NAME: [...] mg 24 hr tablet Take by mouth. 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 [...] 04/24/2023 0.12 RADIOLOGY/OTHER STUDIES: 11/05/2021 CT chest/abdomen/pelvis ([facility]) Several sclerotic lesions consistent with metastatic disease. No evidence of visceral organ involvement or lymphadenopathy. 11/05/2021 Bone scan ([facility]) Multifocal osseous metastasis including the left femur at the lesser trochanter, right pubis symphysis, multiple ribs bilaterally. 01/22/2018 Nuclear bone scan ([facility]) New focal increased activity left frontal bone, left T8 vertebral body. 01/22/2018 MRI pelvis ([facility]) 4.5 cm area of T2 signal in the prostate bed. 07/24/2014 CT abdomen/pelvis ([facility] Diffuse prostatic enlargement with indentation of the bladder base. Incidental 2.5 x 1 cm exophytic hypodense lesion adjacent to the pancreatic body. ASSESSMENT/PLAN: 1. Metastatic prostate cancer (HCC) - ICD9: 185, ICD10: C61 (primary diagnosis) The patient was diagnosed with early-stage high-grade prostate cancer in June 2014 (TRUS [id number]/02/2014). He underwent a radical prostatectomy on 11/05/2014. Pathology consistent with stage IIIC (pT2b, N0, M0), Eagan 5+4 equal 9. Postop the patient's PSA [...] suppressed at <12. Bone scan obtained at [facility] 11/05/2021 revealed multiple bone metastases. CT scans [...] monitor with repeat CT scan. Christo Howard APRN.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 MD CC: Dr. Anthony Scruggs I spent a total of 30 minutes on the date of the service which included preparing to see the patient, xmnc-rm-xkpi patient care, completing clinical documentation, obtaining and/or reviewing separately obtained history, performing a medically appropriate examination, counseling and educating the pat ient/family/caregiver, ordering medications, tests, or procedures, independently interpreting results (not separately reported), and communicating results to the patient/family/caregiver. documented in this encounterMedina Hospital10-03-2023 Evaluation note* Encounter Date Diagnosis Assessment Notes Treatment Notes Treatment Clinical Notes Apr, Pancreatic mass (ICD-10 - K86.89) [facility] Other 10-02-2023 Hospital Discharge instructions Patient Education [...] under a microscope. This is called the Eagan score and the total score can range [...] stress of having cancer. General instructions Take thvj-uax-zcoihrb and prescription medicines only as told by your health care provider. If you have to go to the hospital, notify your cancer specialist (oncologist). Keep all follow-up visits. This is important. Where to find more information [place] [employer]: www.cancer.org [place] [employer]: www.cancer.net National Cancer [place]: www.cancer.gov Contact a health care provider if: [...] provider. Document Revised: 09/29/2021 Document Reviewed: 09/29/2021 Amazing Photo Letters Patient Education 2022 [employer]. Follow Up Care 10/28/2022 08:37:57 With:KAEL JAMES, Anthony Lee, URL Address: [facility] [address], [place] [address]- [phone] When: Unknown Comments:6 mos w/ PSA (and possible Lupron) [facility]27-[facility] Evaluation note* Encounter Date Diagnosis Assessment Notes Treatment Notes Treatment Clinical Notes Mar, Pancreatic mass (ICD-10 - K86.89) [facility] Other 09-20-2023 Evaluation note* Encounter Date Diagnosis Assessment Notes Treatment Notes Treatment Clinical Notes Mar, Right upper quadrant abdominal pain (ICD-10 - R10.11) Diet instructions Lab to r/o acute infection, cholecystitis, pancreatitis GBUS vs CT abd based on results BLand, low fat diet Mar, Nausea (ICD-10 - R11.0) Nicholas , small/frequent feedings. Pepcid, Prilosec, Tums as [...] Microalbumin, Dilated eye exam and Foot exam [facility] Other 08-30-2023 Evaluation note* Encounter Date Diagnosis [...] use, the patient reduces the risk for MD, CVA, HTN, cardiac dysrhythmias and sudden cardiac [...] exercise for 30 minutes, 3-5 times weekly. [facility] Other 07-23-2023 Evaluation note* Encounter Date Diagnosis Assessment Notes Treatment Notes Treatment Clinical Notes Jan, Left bundle-branch block, unspecified (ICD-10 - I44.7) [facility] Other 07-20-2023 History of Present illness Narrative* [...] mg 24 hr tablet Take by mouth. Autmhgrccqtfe-Qnnpzufv-Lxkoah (MULTIVITAMIN 50 PLUS) tab Take 1 tablet [...] Radical retropubic prostatectomy and bilateral pelvic lymphadenectomy ([facility]) Poorly differentiated prostatic adenocarcinoma of left prostate. [...] 10/25/2022 0.13 RADIOLOGY/OTHER STUDIES: 11/05/2021 CT chest/abdomen/pelvis ([facility]) Several sclerotic lesions consistent with metastatic disease. No evidence of visceral organ involvement or lymphadenopathy. 11/05/2021 Bone scan ([facility]) Multifocal osseous metastasis including the left femur at the lesser trochanter, right pubis symphysis, multiple ribs bilaterally. 01/22/2018 Nuclear bone scan ([facility]) New focal increased activity left frontal bone, left T8 vertebral body. 01/22/2018 MRI pelvis ([facility]) 4.5 cm area of T2 signal in the prostate bed. 07/24/2014 CT abdomen/pelvis ([facility] Diffuse prostatic enlargement with indentation of the bladder base. Incidental 2.5 x 1 cm exophytic hypodense lesion adjacent to the pancreatic body. ASSESSMENT/PLAN: 1. Metastatic prostate cancer (HCC) - ICD9: 185, ICD10: C61 (primary diagnosis) The patient was diagnosed with early-stage high-grade prostate cancer in June 2014 (TRUS [id number]/02/2014). He underwent a radical prostatectomy on 11/05/2014. Pathology consistent with stage IIIC (pT2b, N0, M0), Eagan 5+4 equal 9. Postop the patient's PSA [...] suppressed at <12. Bone scan obtained at [facility] 11/05/2021 revealed multiple bone metastases. CT scans [...] CC: Dr. Anthony Scruggs documented in this encounterMedina Hospital04-27-2023 History of Present illness Narrative* Christo Howard APRN.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 MD - 11/10/2022 10:00 AM EDT PATIENT NAME: [...] mg 24 hr tablet Take by mouth. Zfzvhqghxseje-Jybzbijl-Eopfcy (MULTIVITAMIN 50 PLUS) tab Take 1 tablet [...] Radical retropubic prostatectomy and bilateral pelvic lymphadenectomy ([facility]) Poorly differentiated prostatic adenocarcinoma of left prostate. [...] PSA 0.13 RADIOLOGY/OTHER STUDIES: 11/05/2021 CT chest/abdomen/pelvis ([facility]) Several sclerotic lesions consistent with metastatic disease. No evidence of visceral organ involvement or lymphadenopathy. 11/05/2021 Bone scan ([facility]) Multifocal osseous metastasis including the left femur at the lesser trochanter, right pubis symphysis, multiple ribs bilaterally. 01/22/2018 Nuclear bone scan ([facility]) New focal increased activity left frontal bone, left T8 vertebral body. 01/22/2018 MRI pelvis ([facility]) 4.5 cm area of T2 signal in the prostate bed. 07/24/2014 CT abdomen/pelvis ([facility]) Diffuse prostatic enlargement with indentation of the bladder base. Incidental 2.5 x 1 cm exophytic hypodense lesion adjacent to the pancreatic body. ASSESSMENT/PLAN: 1. Metastatic prostate cancer (HCC) - ICD9: 185, ICD10: C61 (primary diagnosis) The patient was diagnosed with early-stage high-grade prostate cancer in June 2014 (TRUS [id number]/02/2014). He underwent a radical prostatectomy on 11/05/2014. Pathology consistent with stage IIIC (pT2b, N0, M0), Eagan 5+4 equal 9. Postop the patient's PSA [...] suppressed at <12. Bone scan obtained at [facility] 11/05/2021 revealed multiple bone metastases. CT scans [...] monitor with repeat CT scan. Christo Howard APRN.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 MD CC: Dr. Anthony Scruggs I spent a total of 30 minutes on the date of the service which included preparing to see the patient, gjlt-xk-dlwl patient care, completing clinical documentation, obtaining and/or reviewing separately obtained history, performing a medically appropriate examination, counseling and educating the pat ient/family/caregiver, ordering medications, tests, or procedures, independently interpreting results (not separately reported), and communicating results to the patient/family/caregiver. documented in this encounterMedina Hospital03-03-2023 Evaluation note* Encounter Date Diagnosis Assessment [...] injection w/ Kenalog, may increase BS slightly [facility] Other 02-24-2023 Evaluation note* Encounter Date Diagnosis [...] I35.0) 04/2022 Echo: ROGER 1.13, Velocity 324, 42/23 Continue to control BP. No CP, tachycardia [...] use, the patient reduces the risk for MD, CVA, HTN, cardiac dysrhythmias and sudden cardiac [...] Lupron along w/ additional oral chemotherapy from [facility]. Also receiving Boniva Aug, Other Personalized he alth advice was given to the beneficiary including a written plan for screenings discussed and provided. Advanced care planning reviewed and/or information given as requested. Additional counseling was provided here today in regards to, [ ]. The above visit was performed by [ ] under direct supervision of DrJunior [ ]. Document reviewed and amended by provider signed below. [facility] Other 01-26-2023 History of Present illness Narrative* [...] mg 24 hr tablet Take by mouth. Yjhlgkhwygamp-Nbatgiuo-Pmizsj (MULTIVITAMIN 50 PLUS) tab Take 1 tablet [...] Radical retropubic prostatectomy and bilateral pelvic lymphadenectomy ([facility]) Poorly differentiated prostatic adenocarcinoma of left prostate. [...] 08/11/2022 PSA RADIOLOGY/OTHER STUDIES: 11/05/2021 CT chest/abdomen/pelvis ([facility]) Several sclerotic lesions consistent with metastatic disease. No evidence of visceral organ involvement or lymphadenopathy. 11/05/2021 Bone scan ([facility]) Multifocal osseous metastasis including the left femur at the lesser trochanter, right pubis symphysis, multiple ribs bilaterally. 01/22/2018 Nuclear bone scan ([facility]) New focal increased activity left frontal bone, left T8 vertebral body. 01/22/2018 MRI pelvis ([facility]) 4.5 cm area of T2 signal in the prostate bed. 07/24/2014 CT abdomen/pelvis ([facility] Diffuse prostatic enlargement with indentation of the bladder base. Incidental 2.5 x 1 cm exophytic hypodense lesion adjacent to the pancreatic body. ASSESSMENT/PLAN: 1. Metastatic prostate cancer (HCC) - ICD9: 185, ICD10: C61 (primary diagnosis) The patient was diagnosed with early-stage high-grade prostate cancer in June 2014 (TRUS crwzbv1307/02/2014). He underwent a radical prostatectomy on 11/05/2014. [...] suppressed at <12. Bone scan obtained at [facility] 11/05/2021 revealed multiple bone metastases. CT scans [...] CC: Dr. Anthony Scruggs documented in this encounterMedina Hospital01-05-2023 NotePROCEDURE: XR SHOULDER LT 2V or [...] Electronically authenticated by: CYNTHIA TORRES Date: 2022-07-21 15:46[facility]01-05-2023 Evaluation note* Encounter Date Diagnosis Assessment Notes Treatment Notes Treatment Clinical Notes Jul, Cervical spondylosis with radiculopathy (ICD-10 - M47.22) ROM exercises, heat/ice and Tylenol 1000mg tid. Initiated Tramadol w/ caution, no driving, may cause sedation. Jul, Acute pain of left shoulder (ICD-10 - M25.512) ROM exercises, Tylenol and Tramadol as needed. Jul, Annual physical exam (ICD-10 - Z00.00) [facility] Other 10-28-2022 Hospital Discharge instructions Patient Education [...] who: Are older than age 65. Are -N[place]ien. Are obese. Have a family history of [...] cells. Follow these instructions at home: Take xoly-lvx-dlgzood and prescription medicines only as told by [...] 07/03/2006 Document Revised: 06/15/2018 Document Reviewed: 03/13/2017 Amazing Photo Letters Patient Education [employer]. Follow Up Care 11/08/2021 14:14:20 With:KAEL JAMES, Anthony Lee, URL Address: [address] [place] [address]- When: Unknown [facility] 10-27-2022 Nurse Note* Sheela Toney - 05/12/2022 10:43 AM EDT AUA=2 documented in this encounterMedina Hospital10-27-2022 History of Present illness Narrative* Zach Khan MD - 05/12/2022 10:41 AM EDT Radiation Oncology - Follow Up Note PATIENT NAME: Pablo Felix PATIENT DIAGNOSIS: Prostate adenocarcinoma, initial clinical stage II, initial PSA 1.07, biopsy Lucrecia score 9(4,5), s/p prostatectomy for 11/05/14 pathologic stage IIIC [id number], Eagan 9 (5, 4) now with rising PSA [...] Each once daily. To test blood sugar Hwjgxiwhqcrzr-Cypafyca-Gxzuxa (MULTIVITAMIN 50 PLUS) tab Take 1 tablet [...] clinical stage II, initial PSA 1.07, biopsy Eagan score 9(4,5), s/p prostatectomy for 11/05/14 pathologic stage IIIC [id number], Eagan 9 (5, 4) withrising PSA, subsequently status [...] Zach Khan MD cc: Jamar Fall MD ([facility]) Portions of the above note extracted and edited from previous visit as well as active information included in the EMR. documented in this encounterMedina Hospital10-17-2022 Miscellaneous Notes* Telephone Encounter - Sheela Toney - 05/02/2022 10:48 AM EDT Patient coming in on 05/12/22 for follow up with labs. Please add lab orders. Thanks, Sheela Toney MA documented in this encounterMedina Hospital08-04-2022 History of Present illness Narrative* Marco [...] Each once daily. To test blood sugar Bsflwjrvnbcok-Yfpvykol-Xumwpw (MULTIVITAMIN 50 PLUS) tab Take 1 tablet [...] Radical retropubic prostatectomy and bilateral pelvic lymphadenectomy ([facility]) Poorly differentiated prostatic adenocarcinoma of left prostate. [...] PSA 0.14 RADIOLOGY/OTHER STUDIES: 11/05/2021 CT chest/abdomen/pelvis ([facility]) Several sclerotic lesions consistent with metastatic disease. No evidence of visceral organ involvement or lymphadenopathy. 11/05/2021 Bone scan ([facility]) Multifocal osseous metastasis including the left femur at the lesser trochanter, right pubis symphysis, multiple ribs bilaterally. 01/22/2018 Nuclear bone scan ([facility]) New focal increased activity left frontal bone, left T8 vertebral body. 01/22/2018 MRI pelvis ([facility]) 4.5 cm area of T2 signal in the prostate bed. 07/24/2014 CT abdomen/pelvis ([facility] Diffuse prostatic enlargement with indentation of the bladder base. Incidental 2.5 x 1 cm exophytic hypodense lesion adjacent to the pancreatic body. ASSESSMENT/PLAN: 1. Metastatic prostate cancer (HCC) - ICD9: 185, ICD10: C61 (primary diagnosis) The patient was diagnosed with early-stage high-grade prostate cancer in June 2014 (TRUS [id number]/02/2014). He underwent a radical prostatectomy on 11/05/2014. [...] at <12. Staging scans were obtained at [facility] on 11/05/2021. Bone scan revealed multiple areas [...] Marco A Esqueda MD CC: Dr. Anthony Scrugsg documented in this encounterMedina Hospital05-23-2022 Miscellaneous Notes* Telephone Encounter - Clementine [...] that he has the phone number to [facility]. No additional questionsnoted. Clementine Aguilar RN documented in this encounterMedina Hospital04-28-2022 History of Present illness Narrative* Marco [...] visit here he underwent staging scans at [facility] on 11/05/2021. Bone scan revealed multiple areas [...] Each once daily. To test blood sugar Uxihjuaktvelx-Yotuzfmf-Vpuzxl (MULTIVITAMIN 50 PLUS) tab Take 1 tablet [...] Radical retropubic prostatectomy and bilateral pelvic lymphadenectomy ([facility]) Poorly differentiated prostatic adenocarcinoma of left prostate. [...] PSA 2.64 RADIOLOGY/OTHER STUDIES: 11/05/2021 CT chest/abdomen/pelvis ([facility]) Several sclerotic lesions consistent with metastatic disease. No evidence of visceral organ involvement or lymphadenopathy. 11/05/2021 Bone scan ([facility]) Multifocal osseous metastasis including the left femur at the lesser trochanter, right pubis symphysis, multiple ribs bilaterally. 01/22/2018 Nuclear bone scan ([facility]) New focal increased activity left frontal bone, left T8 vertebral body. 01/22/2018 MRI pelvis ([facility]) 4.5 cm area of T2 signal in the prostate bed. 07/24/2014 CT abdomen/pelvis ([facility] Diffuse prostatic enlargement with indentation of the bladder base. Incidental 2.5 x 1 cm exophytic hypodense lesion adjacent to the pancreatic body. ASSESSMENT/PLAN: 1. Metastatic prostate cancer (HCC) - ICD9: 185, ICD10: C61 (primary diagnosis) The patient was diagnosed with early-stage high-grade prostate cancer in June 2014 (TRUS werqcz1307/02/2014). He underwent a radical prostatectomy on 11/05/2014. Pathology consistent with stage IIIC (pT2b, N0, M0), Eagan 5+4 equal 9. Postop the patient's PSA [...] at <12. Staging scans were obtained at [facility] on 11/05/2021. Bone scan revealed multiple areas [...] CC: Dr. Anthony Scruggs documented in this encounterMedina Hospital04-27-2022 Miscellaneous Notes* Telephone Encounter - Clementine Aguilar RN - 11/10/2021 3:03 PM EDT Pt reports his Enzalutamide was delivered. Will start this evening. Clementine Aguilar RN documented in this encounterMedina Hospital04-26-2022 Miscellaneous Notes* Telephone Encounter - Clementine Aguilar RN - 11/09/2021 2:31 PM EDT Per pt, his Enzalutamide is scheduled to arrive tomorrow morning. Patient started/will start taking Enzalutamide on 11/10/21. Clementine Aguilar RN documented in this encounterMedina Hospital04-25-2022 Hospital Discharge instructions Patient Education 11/08/2021 [...] who: Are older than age 65. Are -Nigerien. Are obese. Have a family history of [...] cells. Follow these instructions at home: Take qtxb-zgc-rwexgxq and prescription medicines only as told by [...] 07/03/2006 Document Revised: 06/15/2018 Document Reviewed: 03/13/2017 Amazing Photo Letters Patient Education 2019 [employer]. Follow Up Care 08/23/2021 13:26:07 With:KAEL JAMES, Anthony Lee, URL Address: [facility] [address], [place] [address]- [phone] When:05/10/2022 [facility] 04-21-2022 Miscellaneous Notes* Telephone Encounter - Clementine Aguilar RN - 11/04/2021 2:53 PM EDT Pt would like to get the 4th Covid vaccine when it's due. Dr Esqueda notified and gives the ok to proceed when due. Pt notified and verbalizes understanding. Clementine Aguilar RN documented in this encounterMedina Hospital04-21-2022 History of Present illness Narrative* Clementine [...] Information handout: Enzalutamide, Specialty Pharm[facility] : [facility] phone numbers: Yes [...] 5 minutes Clementine Aguilar RN * Aida FergusonAndre, [facility] - 11/04/2021 2:49 PM EDT Images from the original note were not included. [facility] Department of Pharmacy Oncology Pharmacy Medication [...] Each once daily. To test blood sugar Rwwqygtchgtde-Nvxxpito-Fyhkge (MULTIVITAMIN 50 PLUS) tab Take 1 tablet [...] of chemotherapy NA - Followed up with [facility] for delivery of Free Xtandi Readiness [...] patient Rubin Luo RPh documented in this encounterMedina Hospital04-21-2022 Miscellaneous Notes* Telephone Encounter - Aida Luo RPh - 11/04/2021 10:54 AM EDT Confirmed with [employer] approval date 11/01/21 and that the specialty pharmacy, [facility], will reach out to Mr Felix 3-5 business days from approval date. If he does not hear from them by 11/10/21 we should call [facility] @ option 2. I informed Mr Felix of this, he has an appt 11/12/21 and said if he has not heard from them by then he will get their phone number from us. Rubin Luo RPh documented in this encounterMedina Hospital04-19-2022 Miscellaneous Notes* Telephone Encounter - Jennifer [...] him know to be expecting this call. [facility] up delivery for all fills. I do not see where he has had chemo education yet. Alba does he need to be set up with you? Thanks Rubin Luo RP * Telephone Encounter - Andreina Castillo RP - 11/01/2021 10:55 AM EDT Patient called today. We completed a conference call with [employer] - they were ableto obtain consent and start his benefits investigations and we should hear back by later today or tomorrow. * Telephone Encounter - Aida Luo [facility] - 10/29/2021 3:38 PM EDT Permission granted [...] We will proceed free drug application through [employer]. Pharmacy to reach out to patient 10/29/2021 to notify. Brina Wang RPh * Telephone Encounter - Brina Wang RPh - 10/28/2021 3:08 PM EDT Ambulatory Pharmacy Prior Authorization Note Provider Intervention Required?: No- Pharmacy completed on your behalf. Drug: Xtandi Cover My Meds Carter: [id number] Determination: Approved Prior Authorization/Case #: [id number] Prior Authorization Expiration: 10/28/2022 Time to PA Submission in CMM: 15 min Time to PA Determination in CMM: Same day Additional Information: Co-Pay $3,111.12 For questions relating to this submission, please contact [facility] at [phone] documented in this encounterMedina Hospital04-19-2022 Miscellaneous Notes* Telephone Encounter - Zohra Avila PA-C - 11/02/2021 12:00 PM EDT CBC and CMP orders placed Zohra Avila PA-C * Telephone Encounter - Katie Rosen MA - 11/02/2021 11:57 AM EDT Patient has an appt on 11/11/21. Would you like labs, if so place orders. Katie Rosen MA documented in this encounterMedina Hospital04-18-2022 Miscellaneous Notes* Telephone Encounter - Clementine [...] assistance program. Thanks, RADHA documented in this encounterMedina Hospital04-14-2022 Miscellaneous Notes* Telephone Encounter - Clementine Aguilar RN - 10/28/2021 1:12 PM EDT Voicemail message received from Sandra @ [facility]. Reports the pt's 1st dose of Lupron was given on 02/12/2018. Dr Esqueda notified. Clementine Aguilar RN * Telephone Encounter - Clementine Aguilar RN - 10/28/2021 12:[address] Esqueda requests that we contact Dr Scruggs' office for pt's Lupron start date. Call placed to [facility]. No answer. Message left requesting call back. Clementine Aguilar RN documented in this encounterMedina Hospital04-14-2022 Miscellaneous Notes* Telephone Encounter - Clementine Aguilar RN - 10/28/2021 1:12 PM EDT This encounter was opened in error. @[email or web address]@ documented in this encounterMedina Hospital04-11-2022 Miscellaneous Notes* Telephone Encounter - Christo Howard APRN.CNP - 10/25/2021 4:05 PM EDT Hold off for now. Christo Howard APRN.CNP * Telephone Encounter - Katie Rosen MA - 10/25/2021 11:01 AM EDT If patient needs labs, please sign/place orders for 10/28/21. Thanks. Katie Rosen MA documented in this encounterMedina Hospital01-01-2015 Evaluation note* Diagnosis Onset Date Resolution Status ASHD (arteriosclerotic heart disease) acute Cervical spondylosis acute Essential hypertension acute Hypercholesterolemia acute Malignant neoplasm of prostate July 17, 2014 acute Nonrheumatic aortic valve stenosis acute GRADY (obstructive sleep apnea) acute Type 2 diabetes mellitus with hyperglycemia acute [facility] Work Phone: Evaluation + Plan note Future Appointments Appointment Date:05/13/2022 08:45:00 AM Scheduled Provider:Anthony SCRUGGS MD Location:[facility] Appointment Type:URO Office Visit Diagnostic Tests Pending * PSA Total 11/08/21 Future Scheduled Tests Laboratory* Basic Metabolic Panel 09/20/21 [facility] evaluation + Plan note Future Appointments Appointment Date:10/28/2022 08:00:00 AM Scheduled Provider:Anthony SCRUGGS MD Location:[facility] Appointment Type:URO Office Visit Diagnostic Tests Pending * PSA Total 09/14/22 Future Scheduled Tests Laboratory* Basic Metabolic Panel 09/20/21 [facility] evaluation + Plan note Future Appointments Appointment Date:10/20/2023 08:45:00 AM Scheduled Provider:Anthony SCRUGGS MD Location:[facility] Appointment Type:URO Office Visit Diagnostic Tests Pending * PSA Total 04/17/23 [facility] evaluation + Plan note Future Appointments Appointment Date:04/19/2024 08:00:00 AM Scheduled Provider:Anthony SCRUGGS MD Location:[facility] Appointment Type:URO Office Visit Diagnostic Tests Pending * PSA Total 02/15/24 [facility] evaluation + Plan note Future Appointments Appointment Date:10/07/2024 09:15:00 AM Scheduled Provider:Anthony SCRUGGS MD Location:[facility] Appointment Type:URO Office Visit Diagnostic Tests Pending * PSA Total 08/17/24 [facility] evaluation note* Diagnosis OPENED IN ERROR- Primary To allow closing an encounter opened in error (used in SmartSet) [facility] Malignant ne[facility] of prostate [...] neoplasm of prostate [facility]* Diagnosis Malignant neoplasm of prostate (HCC)- Primary Malignant neoplasm of prostate 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, unspecified vessel or lesion type Essential hypertension Unspecified essential hypertension Type 2 diabetes mellitus without complication, without long-term current use of insulin (HCC) documented [facility] noteNo [employer] Other Evaluation note* Diagnosis Malignant neoplasm of prostate (HCC)- Primary Malignant neoplasm of prostate 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, unspecified vessel or lesion type Essential hypertension Unspecified essential hypertension Type 2 diabetes mellitus without complication, without long-term current use of insulin (HCC) documented in this encounter [facility] note* Diagnosis Malignant neoplasm of prostate (HCC)- Primary Malignant neoplasm of prostate [facility]* Diagnosis Malignant neoplasm of prostate (HCC)- Primary Malignant neoplasm of prostate documented in this encounter [facility] note* Diagnosis Malignant neoplasm of prostate (HCC)- Primary Malignant neoplasm of prostate 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, unspecified vessel or lesion type Essential hypertension Unspecified essential hypertension Type 2 diabetes mellitus without complication, without long-term current use of insulin (HCC) documented in this encounter [facility] note* Diagnosis Neoplasm of unspecified behavior of bone, soft tissue, and skin Actinic keratosis documented in this encounter [facility] note* Diagnosis Malignant neoplasm of prostate (HCC)- Primary Malignant neoplasm of prostate documented in this encounter [facility] note* Diagnosis Malignant neoplasm of prostate (HCC)- Primary Malignant neoplasm of prostate Essential hypertension Unspecified essential hypertension 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, unspecified vessel or lesion type Type 2 diabetes mellitus without complication, without long-term current use of insulin (HCC) Lesion of skin of right ear Abdominal discomfort Abdominal pain, unspecified site documented in this encounter [facility] note* Diagnosis Onset Date Resolution Status [...] Type 2 diabetes mellitus with hyperglycemia acute [facility] Work Phone: Evaluation note* Diagnosis Malignant neoplasm of prostate (HCC)- Primary Malignant neoplasm of prostate documented in this encounter [facility] note* Diagnosis Malignant neoplasm of prostate (HCC)- Primary Malignant neoplasm of prostate documented in this encounter [facility] note* Diagnosis Malignant neoplasm of prostate (HCC)- Primary Malignant neoplasm of prostate documented in this encounter [facility] note* Diagnosis Malignant neoplasm of prostate (HCC)- Primary Malignant neoplasm of prostate documented in this encounter [facility] note* Diagnosis Malignant neoplasm of prostate (HCC)- Primary Malignant neoplasm of prostate Essential hypertension Unspecified essential hypertension 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, unspecified vessel or lesion type Type 2 diabetes mellitus without complication, without long-term current use of insulin (HCC) documented in this encounter [facility] general Narrative - Reported* Type [...] Pancreatic Mass 08/2015 Hospitalization History see surgical [facility] Other History general Narrative - Reported* Type [...] Mass 08/2015 Hospitalization History see surgical hx [facility] Other Hospital course Narrative No data available for this section [facility] progress note No data available for this section [facility] Medications Administered Section Inactive Administered Medications [...] mg Arm, Left Summary Purpose Family History Relationship Condition Age at Onset Recorded Date/T desmond father Unknown Heart disease Unknown Not Specified Unknown Malignant neoplasm Unknown Relationship Condition Age at Onset Recorded Date/T desmond father Unknown Heart disease Unknown mother Unknown Malignant neoplasm Unknown Advance Directives Advance Directive Response Recorded Date/ Time Advance Directives No August 24, 2023 10:26am Advance Directive Response Recorded Date/ Time Advance Directives No August 24, 2023 9:26am Reason for Referral Specialty Diagnoses / Procedures Referred By Jeffery choudhury Referred To Contact Diagnoses Actinic keratosis Long Boo, 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-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 MD [address] [place] [address] Referral ID Status Reason Start Date Expiration Date V isits Requested Visits Authorized [id number] Pending Review 1 1 Reason *FU 06/06 Right fr ontal sinus mass and cerumen impaction Diagnosis 1 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) Diagnosis 2 Impacted cerumen of right ear (H61.21) Referral Organization [facility] Referring Provider First Name Jamar Referring Provider Last Name Juan David Referring Provider Specialty Internal Me dicine Referred Organization [facility] Referred Provider Emelina Louis Referred Address ,[place], [place],[address] Referred Provider Specialty Ear, Nose an d [...] 2 diabetes mellitus with hyperglycemia Chief Complaint Admit Date diarrhea June 10, 2024 2:02pm wellness September 02, 2024 9:28am Reason for Visit Admit Date Diarrhea June 10, 2024 2:02pm Malignant neoplasm of prostate June 10, 2024 2:02pm Type 2 diabetes mellitus with hyperglyce sunny June 10, 2024 2:02pm ASHD (arteriosclerotic heart disease) Fe bruary 2024 9:28am Cervical spondylosis September 02, 2024 9:28am Essential hypertension September 02 9:28am Hypercholesterolemia September 02, 2024 9:28am Malignant neoplasm of prostate September 02, 2024 9:28am Medicare annual wellness visit, subseque nt September 02, 2024 9:28am Nonrheumatic aortic valve stenosis Febru deanna 2024 9:28am GRADY (obstructive sleep apnea) August 172024 9:28am Type 2 diabetes mellitus with hyperglyce sunny September 02, 2024 9:28am Additional Source Comments Source Comments (unrecognize d section and content) In the event this informatio n is protected by the Federal Confidentiality of Alcohol and Drug Abuse Patient Records regulations: The Federal rules restrict any use of the information to criminally investigate or prosecute any alcohol or drug abuse patient.[facility] HospitalIn the event this information is protected by the Federal Confidentiality of Alcohol and Drug Abuse Patient Records regulations: The Federal rules restrict any use of the information to criminally investigate or prosecute any alcohol or drug abuse patient.[facility] HospitalIn the event this information is protected by the Federal Confidentiality of Alcohol and Drug Abuse Patient Records regulations: The Federal rules restrict any use of the information to criminally investigate or prosecute any alcohol or drug abuse patient.[facility] HospitalIn the event this information is protected by the Federal Confidentiality of Alcohol and Drug Abuse Patient Records regulations: The Federal rules restrict any use of the information to criminally investigate or prosecute any alcohol or drug abuse patient.[facility] HospitalIn the event this information is protected by the Federal Confidentiality of Alcohol and Drug Abuse Patient Records regulations: The Federal rules restrict any use of the information to criminally investigate or prosecute any alcohol or drug abuse patient.[facility] HospitalIn the event this information is protected by the Federal Confidentiality of Alcohol and Drug Abuse Patient Records regulations: The Federal rules restrict any use of the information to criminally investigate or prosecute any alcohol or drug abuse patient.[facility] HospitalIn the event this information is protected by the Federal Confidentiality of Alcohol and Drug Abuse Patient Records regulations: The Federal rules restrict any use of the information to criminally investigate or prosecute any alcohol or drug abuse patient.[facility] HospitalIn the event this information is protected by the Federal Confidentiality of Alcohol and Drug Abuse Patient Records regulations: The Federal rules restrict any use of the information to criminally investigate or prosecute any alcohol or drug abuse patient.[facility] HospitalIn the event this information is protected by the Federal Confidentiality of Alcohol and Drug Abuse Patient Records regulations: The Federal rules restrict any use of the information to criminally investigate or prosecute any alcohol or drug abuse patient.[facility] HospitalIn the event this information is protected by the Federal Confidentiality of Alcohol and Drug Abuse Patient Records regulations: The Federal rules restrict any use of the information to criminally investigate or prosecute any alcohol or drug abuse patient.[facility] HospitalIn the event this information is protected by the Federal Confidentiality of Alcohol and Drug Abuse Patient Records regulations: The Federal rules restrict any use of the information to criminally investigate or prosecute any alcohol or drug abuse patient.[facility] HospitalIn the event this information is protected by the Federal Confidentiality of Alcohol and Drug Abuse Patient Records regulations: The Federal rules restrict any use of the information to criminally investigate or prosecute any alcohol or drug abuse patient.[facility] HospitalIn the event this information is protected by the Federal Confidentiality of Alcohol and Drug Abuse Patient Records regulations: The Federal rules restrict any use of the information to criminally investigate or prosecute any alcohol or drug abuse patient.[facility] HospitalIn the event this information is protected by the Federal Confidentiality of Alcohol and Drug Abuse Patient Records regulations: The Federal rules restrict any use of the information to criminally investigate or prosecute any alcohol or drug abuse patient.[facility] HospitalIn the event this information is protected by the Federal Confidentiality of Alcohol and Drug Abuse Patient Records regulations: The Federal rules restrict any use of the information to criminally investigate or prosecute any alcohol or drug abuse patient.[facility] HospitalIn the event this information is protected by the Federal Confidentiality of Alcohol and Drug Abuse Patient Records regulations: The Federal rules restrict any use of the information to criminally investigate or prosecute any alcohol or drug abuse patient.[facility] HospitalIn the event this information is protected by the Federal Confidentiality of Alcohol and Drug Abuse Patient Records regulations: The Federal rules restrict any use of the information to criminally investigate or prosecute any alcohol or drug abuse patient.[facility] HospitalIn the event this information is protected by the Federal Confidentiality of Alcohol and Drug Abuse Patient Records regulations: The Federal rules restrict any use of the information to criminally investigate or prosecute any alcohol or drug abuse patient.[facility] HospitalIn the event this information is protected by the Federal Confidentiality of Alcohol and Drug Abuse Patient Records regulations: The Federal rules restrict any use of the information to criminally investigate or prosecute any alcohol or drug abuse patient.[facility] HospitalIn the event this information is protected by the Federal Confidentiality of Alcohol and Drug Abuse Patient Records regulations: The Federal rules restrict any use of the information to criminally investigate or prosecute any alcohol or drug abuse patient.[facility] HospitalIn the event this information is protected by the Federal Confidentiality of Alcohol and Drug Abuse Patient Records regulations: The Federal rules restrict any use of the information to criminally investigate or prosecute any alcohol or drug abuse patient.[facility] HospitalIn the event this information is protected by the Federal Confidentiality of Alcohol and Drug Abuse Patient Records regulations: The Federal rules restrict any use of the information to criminally investigate or prosecute any alcohol or drug abuse patient.[facility] HospitalIn the event this information is protected by the Federal Confidentiality of Alcohol and Drug Abuse Patient Records regulations: The Federal rules restrict any use of the information to criminally investigate or prosecute any alcohol or drug abuse patient.[facility] HospitalIn the event this information is protected by the Federal Confidentiality of Alcohol and Drug Abuse Patient Records regulations: The Federal rules restrict any use of the information to criminally investigate or prosecute any alcohol or drug abuse patient.[facility] HospitalIn the event this information is protected by the Federal Confidentiality of Alcohol and Drug Abuse Patient Records regulations: The Federal rules restrict any use of the information to criminally investigate or prosecute any alcohol or drug abuse patient.[facility] HospitalIn the event this information is protected by the Federal Confidentiality of Alcohol and Drug Abuse Patient Records regulations: The Federal rules restrict any use of the information to criminally investigate or prosecute any alcohol or drug abuse patient.[facility] HospitalIn the event this information is protected by the Federal Confidentiality of Alcohol and Drug Abuse Patient Records regulations: The Federal rules restrict any use of the information to criminally investigate or prosecute any alcohol or drug abuse patient.[facility] HospitalIn the event this information is protected by the Federal Confidentiality of Alcohol and Drug Abuse Patient Records regulations: The Federal rules restrict any use of the information to criminally investigate or prosecute any alcohol or drug abuse patient.[facility] HospitalIn the event this information is protected by the Federal Confidentiality of Alcohol and Drug Abuse Patient Records regulations: The Federal rules restrict any use of the information to criminally investigate or prosecute any alcohol or drug abuse patient.[facility] HospitalIn the event this information is protected by the Federal Confidentiality of Alcohol and Drug Abuse Patient Records regulations: The Federal rules restrict any use of the information to criminally investigate or prosecute any alcohol or drug abuse patient.[facility] HospitalIn the event this information is protected by the Federal Confidentiality of Alcohol and Drug Abuse Patient Records regulations: The Federal rules restrict any use of the information to criminally investigate or prosecute any alcohol or drug abuse patient.[facility] HospitalIn the event this information is protected by the Federal Confidentiality of Alcohol and Drug Abuse Patient Records regulations: The Federal rules restrict any use of the information to criminally investigate or prosecute any alcohol or drug abuse patient.[facility] HospitalIn the event this information is protected by the Federal Confidentiality of Alcohol and Drug Abuse Patient Records regulations: The Federal rules restrict any use of the information to criminally investigate or prosecute any alcohol or drug abuse patient.[facility] HospitalIn the event this information is protected by the Federal Confidentiality of Alcohol and Drug Abuse Patient Records regulations: The Federal rules restrict any use of the information to criminally investigate or prosecute any alcohol or drug abuse patient.[facility] HospitalIn the event this information is protected by the Federal Confidentiality of Alcohol and Drug Abuse Patient Records regulations: The Federal rules restrict any use of the information to criminally investigate or prosecute any alcohol or drug abuse patient.[facility] HospitalIn the event this information is protected by the Federal Confidentiality of Alcohol and Drug Abuse Patient Records regulations: The Federal rules restrict any use of the information to criminally investigate or prosecute any alcohol or drug abuse patient.[facility] HospitalIn the event this information is protected by the Federal Confidentiality of Alcohol and Drug Abuse Patient Records regulations: The Federal rules restrict any use of the information to criminally investigate or prosecute any alcohol or drug abuse patient.[facility] HospitalIn the event this information is protected by the Federal Confidentiality of Alcohol and Drug Abuse Patient Records regulations: The Federal rules restrict any use of the information to criminally investigate or prosecute any alcohol or drug abuse patient.[facility] Care Teams (unrecognized sec tion and content) Team Status: Active Member Role Status Dates Jamar Fall DO Primary Care Provider Active Team Status: Inactive Member Role Status Dates Jamar Fall DO Primary Care Provide r, Attending Provider Active Start: June 10, 2024 End: June 10, 2024 Team Status: Active Member Role Status Dates Jamar Fall DO Primary Care Provider Active Start: August 01, 2024 Marco A Esqueda MD Attending Provider Active Star t: August 01, 2024 Team Status: Inactive Member Role Status Dates Jamar Fall DO Primary Care Provide r, Attending Provider Active Start: September 02, 2024 End: September 02, 2024 Plastics Technician Relationship Specialty Start Date End Date Jamar Fall DO PCP - General Internal Medicine 08/04/14 Plastics Technician Relationship Specialty Start Date End Date Jamar Fall DO PCP - General Internal Medicine 08/04/14 Plastics Technician Relationship Specialty Start Date End Date Jamar Fall DO PCP - General Internal Medicine 08/04/14 Plastics Technician Relationship Specialty Start Date End Date Jamar Fall DO PCP - General Internal Medicine 08/04/14 Marco A Esqueda MD [address] [place] [address] Physician Hematology/Oncology 11/02/21 Christo Howard, 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.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 MD [address] [place] [address] Nurse Practitioner Hematology/Oncology 11/02/21 Clementine Aguilar, ANITHA [address] [place] [address] Specialty Parcel Post Delivery Hematology/Oncology 11/02/21 Plastics Technician Relationship Specialty Start Date End Date Jmaar Fall, DO PCP - General Internal Medicine 08/04/14 Marco A Esqueda MD [address] [place] [address] Physician Hematology/Oncology 11/02/21 Christo Howard, 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.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 MD [address] [place] [address] Nurse Practitioner Hematology/Oncology 11/02/21 Clementine Aguilar, ANITHA [address] [place] [address] Specialty Parcel Post Delivery Hematology/Oncology 11/02/21 Plastics Technician Relationship Specialty Start Date End Date Jamar Fall, DO PCP - General Internal Medicine 08/04/14 Marco A Esqueda MD [address] [place] [address] Physician Hematology/Oncology 11/02/21 Christo Howard, 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.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 MD [address] [place] [address] Nurse Practitioner Hematology/Oncology 11/02/21 Clementine Aguilar, RN [address] [place] [address] Specialty Parcel Post Delivery Hematology/Oncology 11/02/21 Plastics Technician Relationship Specialty Start Date End Date Jamar Fall, DO PCP - General Internal Medicine 08/04/14 Marco A Esqueda MD [address] [place] [address] Physician Hematology/Oncology 11/02/21 Christo Howard, 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.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 MD [address] [place] [address] Nurse Practitioner Hematology/Oncology 11/02/21 Clementine Aguilar, RN [address] [place] [address] Specialty Parcel Post Delivery Hematology/Oncology 11/02/21 Plastics Technician Relationship Specialty Start Date End Date Jamar Fall, DO PCP - General Internal Medicine 08/04/14 Marco A Esqueda MD [address] [place] [address] Physician Hematology/Oncology 11/02/21 Christo Howard, 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.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 MD [address] [place] [address] Nurse Practitioner Hematology/Oncology 11/02/21 Clementine Aguilar, RN [address] [place] [address] Specialty Parcel Post Delivery Hematology/Oncology 11/02/21 Plastics Technician Relationship Specialty Start Date End Date Jamar Fall, DO PCP - General Internal Medicine 08/04/14 Marco A Esqueda MD [address] [place] [address] Physician Hematology/Oncology 11/02/21 Christo Howard, 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.[facility] [address] [place], [place] [id number] Nurse Practitioner Hematology/Oncology 11/02/21 Clementine Aguilar, ANITHA [address] [place] [address] Specialty Parcel Post Delivery Hematology/Oncology 11/02/21 Plastics Technician Relationship Specialty Start Date End Date Jamar Fall, DO PCP - General Internal Medicine 08/04/14 Marco A Esqueda MD [address] [place] [address] Physician Hematology/Oncology 11/02/21 Christo Howard, 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.[facility] [address] [place] [address] Nurse Practitioner Hematology/Oncology 11/02/21 Clementine Aguilar, ANITHA [address] [place] [address] [place] [address] Specialty Parcel Post Delivery Hematology/Oncology 11/02/21 Plastics Technician Relationship Specialty Start Date End Date Jamar Fall, PCP - General Internal Medicine 08/04/14 Marco A Esqueda MD [address] [place] [address] Physician Hematology/Oncology 11/02/21 Christo Howard, 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.[facility] [address] [place] [address] Nurse Practitioner Hematology/Oncology 11/02/21 Clementine Aguilar, RN [address] [place] [address] Specialty Parcel Post Delivery Hematology/Oncology 11/02/21 Plastics Technician Relationship Specialty Start Date End Date Jamar Fall, DO PCP - General Internal Medicine 08/04/14 Marco A Esqueda MD [address] [place] [address] Physician Hematology/Oncology 11/02/21 Christo Howard, 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.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 MD [address] [place] [address] Nurse Practitioner Hematology/Oncology 11/02/21 Clementine Aguilar, RN [address] [place] [address] Specialty Parcel Post Delivery Hematology/Oncology 11/02/21 Plastics Technician Relationship Specialty Start Date End Date Jamar Fall, DO PCP - General Internal Medicine 08/04/14 Marco A Esqueda MD [address] [place] [address] Physician Hematology/Oncology 11/02/21 Christo Howard, 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.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 MD [address] [place] [address] Nurse Practitioner Hematology/Oncology 11/02/21 Clementine Aguilar, ANITHA [address] [place] [address] Specialty Parcel Post Delivery Hematology/Oncology 11/02/21 Plastics Technician Relationship Specialty Start Date End Date Jamar Fall, DO PCP - General Internal Medicine 08/04/14 Marco A Esqueda MD [address] [place] [address] Physician Hematology/Oncology 11/02/21 Christo Howard, 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.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 MD [address] [place] [address] Nurse Practitioner Hematology/Oncology 11/02/21 Clementine Aguilar, RN [address] [place] [address] Specialty Parcel Post Delivery Hematology/Oncology 11/02/21 Plastics Technician Relationship Specialty Start Date End Date Jamar Fall, DO PCP - General Internal Medicine 08/04/14 Marco A Esqueda MD [address] [place] [address] Physician Hematology/Oncology 11/02/21 Christo Howard, 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.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 MD [address] [place] [address] Nurse Practitioner Hematology/Oncology 11/02/21 Clementine Aguilar, ANITHA [address] [place] [address] Specialty Parcel Post Delivery Hematology/Oncology 11/02/21 Plastics Technician Relationship Specialty Start Date End Date Jamar Fall, DO PCP - General Internal Medicine 08/04/14 Marco A Esqueda MD [address] [place] [address] Physician Hematology/Oncology 11/02/21 Christo Howard, 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.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 MD [address] [place] [address] Nurse Practitioner Hematology/Oncology 11/02/21 Clementine Aguilar, RN [address] [place] [address] Specialty Parcel Post Delivery Hematology/Oncology 11/02/21 Plastics Technician Relationship Specialty Start Date End Date Jamar Fall DO PCP - General Internal Medicine 08/04/14 Marco A Esqueda MD [address] [facility] [place] [address] Physician Hematology/Oncology 11/02/21 Christo Howard, 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.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 MD [address] [facility] [place] [place] [address] Nurse Practitioner Hematology/Oncology 11/02/21 Clementine Aguilar, RN [address] [facility] [place] [place] [address] Specialty Parcel Post Delivery Hematology/Oncology 11/02/21 Plastics Technician Relationship Specialty Start Date End Date Jamar Fall DO PCP - General Internal Medicine 08/04/14 Marco A Esqueda MD [address] [facility] [place] [place] [address] Physician Hematology/Oncology 11/02/21 Christo Howard, 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.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 MD [address] [facility] [place] [address] Nurse Practitioner Hematology/Oncology 11/02/21 Clementine Aguilar, RN [address] [facility] [place] [place] [address] Specialty Parcel Post Delivery Hematology/Oncology 11/02/21 Plastics Technician Relationship Specialty Start Date End Date Jamar Fall DO PCP - General Internal Medicine 08/04/14 Marco A Esqueda MD [address] [place] [address] Physician Hematology/Oncology 11/02/21 Christo Howard, 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.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 MD [address] [place] [address] Nurse Practitioner Hematology/Oncology 11/02/21 Clementine Aguilar, ANITHA [address] [place] [address] Specialty Parcel Post Delivery Hematology/Oncology 11/02/21 Plastics Technician Relationship Specialty Start Date End Date Jamar Fall DO PCP - General Internal Medicine 08/04/14 Marco A Esqueda MD [address] [place] [address] [place] [address] Physician Hematology/Oncology 11/02/21 Christo Howard, 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.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 MD [address] [place] [address] Nurse Practitioner Hematology/Oncology 11/02/21 Clementine Aguilar, ANITHA [address] [place] [address] Specialty Parcel Post Delivery Hematology/Oncology 11/02/21 Plastics Technician Relationship Specialty Start Date End Date Jamar Fall MD [address] [place] [address] PCP - General Internal Medicine 05/31/23 Plastics Technician Relationship Specialty Start Date End Date Jamar Fall MD [address] [place] [address] PCP - General Internal Medicine 05/31/23 Plastics Technician Relationship Specialty Start Date End Date Jamar Fall DO PCP - General Internal Medicine 08/04/14 Marco A Esqueda MD [address] [facility] [place] [place] [address] Physician Hematology/Oncology 11/02/21 Christo Howard, 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.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 MD [address] [facility] [place] [place] [address] Nurse Practitioner Hematology/Oncology 11/02/21 Clementine Aguilar, ANITHA [address] [facility] [place] [place] [address] Specialty Parcel Post Delivery Hematology/Oncology 11/02/21 Plastics Technician Relationship Specialty Start Date End Date Jamar Fall DO PCP - General Internal Medicine 08/04/14 Marco A Esqueda MD [address] [facility] [place] [place] [address] Physician Hematology/Oncology 11/02/21 Christo Howard, 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.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 MD [address] [facility] [place] [place] [address] Nurse Practitioner Hematology/Oncology 11/02/21 Clementine Aguilar, ANITHA [address] [facility] [place] [place] [address] Specialty Parcel Post Delivery Hematology/Oncology 11/02/21 Team Status: Active Member Role [...] Active Member Role Status Dates Jamar Fall , DO Primary Care Provide r, Attending Provider Active Start: October 09, 2023 Team Status: Active Member Role Status Dates Jamar Fall , DO Primary Care Provide r, Attending Provider Active Start: October 30, 2023 Team Status: Inactive Member Role Status Dates Jamar Fall , DO Primary Care Provide r, Attending Provider Active Start: November 23, 2023 End: November 23, 2023 Plastics Technician Relationship Specialty Start Date End Date Jamar Fall DO PCP - General Internal Medicine 08/04/14 Marco A Esqueda MD [address] [facility] [address] [place], [place] [address] Physician Hematology/Oncology 11/02/21 Christo Howard, 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.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 MD [address] [facility] [place] [address] Nurse Practitioner Hematology/Oncology 11/02/21 Clementine Aguilar, ANITHA [address] [facility] [place] [address] Specialty Parcel Post Delivery Hematology/Oncology 11/02/21 Plastics Technician Relationship Specialty Start Date End Date Jamar Fall DO PCP - General Internal Medicine 08/04/14 Marco A Esqueda MD [address] [facility] [place] [address] Physician Hematology/Oncology 11/02/21 Christo Howard, 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.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 MD [address] [facility] [place] [address] Nurse Practitioner Hematology/Oncology 11/02/21 Clementine Aguilar, ANITHA [address] [place] [address] Specialty Parcel Post Delivery Hematology/Oncology 11/02/21 Team Status: Active Member Role Status Dates Jamar Fall DO Primary Care Provider Active Start: January 25, 2024 BRITTANY CollinsC Attending Provider Active Start: January 25, 2024 Team Status: Inactive Member Role Status Dates Jamar Fall DO Primary Care Provide r, Attending Provider Active Start: March 26, 2024 End: March 26, 2024 Plastics Technician Relationship Specialty Start Date End Date Jamar Fall DO PCP - General Internal Medicine 08/04/14 Marco A Esqueda MD [address] [place] [address] [place] [address] Physician Hematology/Oncology 11/02/21 Christo Howard, 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.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 MD [address] [place] [address] [place] [address] Nurse Practitioner Hematology/Oncology 11/02/21 Clementine Aguilar, ANITHA [address] [place] [address] [place] [address] Specialty Parcel Post Delivery Hematology/Oncology 11/02/21 Plastics Technician Relationship Specialty Start Date End Date Jamar Fall DO PCP - General Internal Medicine 08/04/14 Marco A Esqueda MD [address] [place] [address] [place] [address] Physician Hematology/Oncology 11/02/21 Christo Howard, 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.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 MD [address] [facility] [place] [place] [address] Nurse Practitioner Hematology/Oncology 11/02/21 Clementine Aguilar, ANITHA [address] [facility] [place] [place] [address] Specialty Parcel Post Delivery Hematology/Oncology 11/02/21 Plastics Technician Relationship Specialty Start Date End Date Jamar Fall DO PCP - General Internal Medicine 08/04/14 Marco A Esqueda MD [address] [facility] [place] [address] Physician Hematology/Oncology 11/02/21 Christo Howard, 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.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 MD [address] [facility] [place] [address] Nurse Practitioner Hematology/Oncology 11/02/21 Clementine Aguilar RN [address] [facility] [place] [address] Specialty Parcel Post Delivery Hematology/Oncology 11/02/21 Plastics Technician Relationship Specialty Start Date End Date Jamar Fall DO PCP - General Internal Medicine 08/04/14 Marco A Esqueda MD [address] [facility] [place] [address] Physician Hematology/Oncology 11/02/21 Christo Howard, 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.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 MD [address] [facility] [address] Nurse Practitioner Hematology/Oncology 11/02/21 Clementine Aguilar, RN [address] [facility] [place] [address] Specialty Parcel Post Delivery Hematology/Oncology 11/02/21 Team Status: Inactive Member Role Status Dates Jamar Fall DO Primary Care Provide r, Attending Provider Active Start: June 10, 2024 End: June 10, 2024 Team Status: Active Member Role Status Dates Jamar Fall DO Primary Care Provider Active Start: August 01, 2024 Marco A Esqueda MD Attending Provider Active Star t: August 01, 2024 Team Status: Inactive Member Role Status Dates Jamar Fall DO Primary Care Provide r, Attending Provider Active Start: September 02, 2024 End: September 02, 2024 Reason for Visit (unrecogniz ed section and [...] Procedures DENOSUMAB INJECTION Marco A Esqueda MD [address] [place] [address] [place] [address] [employer] [employer] [address] [place] [address] Referral ID Status Reason Start Date Expiration Date V isits Requested Visits Authorized [id number] Authorized 11/11/2021 07/16/2022 99 99 Reason Comments [...] of R ear Marco A Esqueda MD [address] [place] [address] [place] [address] Lety Holguin MD [address] [place] [address] Referral ID Status Reason Start Date Expiration Date Visits Re quested Visits Authorized [id number] Closed 08/04/2023 01/31/2024 1 1 Reason Comments [...] DATE CREATED AUTHOR AUTHOR'S ORGANIZ ATION 03/02/2024 [facility] EPIC DATE CREATED AUTHOR AUTHOR'S ORGANIZ ATION 04/02/2024 [facility] DATE CREATED AUTHOR AUTHOR'S ORGANIZ ATION 04/21/2024 [facility] DATE CREATED AUTHOR AUTHOR'S ORGANIZ ATION 08/10/2024 [facility] Inactive Administered Medications - up [...] BE BASED ON THE PRIMARY CLINICAL RECORDS. [employer] [facility]. provides no warranty or guarantee of the accuracy or completeness of information in this document.
--- NOTE | 2024-09-12 09:43 | PM.CN ---
Consult Note: HPI Data of Consult Patient: known to practice within the last 3 years Requesting Physician: Cheryl Cox NP Primary Care Provider: Jamar Jones, DO Consult Narrative Reason for consult: f/u Narrative: Rajesh Felix a pleasant 79 year old male presents for evaluation of chronic left sided neck pain. recently underwent C7/T1 MARNIE with mild relief. continues to have moderate to severe left sided neck pain, today 2-3 increasing to 5-6/10 with watching TB, twisting head, and sleep. finds mild benefit to tylenol and voltaren gel. has failed to benefit from >6 weeks of PT and provider guided HEP, heat, ice, tylenol, and topical NSAIDs. recent cervical xray consistent with degenerative changes and mild listhesis at C3-4. cc:: CC: Cheryl Cox NP Review of Systems ROS Status of ROS 10 or more systems reviewed and unremarkable except as noted in history and below Musculoskeletal Reports: neck pain PFSH PFSH Medical History Anemia ?D64.9 - Anemia, unspecified (ICD-10) History of blood transfusion ?Z92.89 - Personal history of other medical treatment (ICD-10) Sleep apnea ?G47.30 - Sleep apnea, unspecified (ICD-10) COVID-19 ?U07.1 - COVID-19 (ICD-10) Prostate cancer ?C61 - Malignant neoplasm of prostate (ICD-10) Coronary artery disease ?I25.10 - Atherosclerotic heart disease of [place] coronary artery without angina pectoris (ICD-10) Diabetes ?E11.9 - Type 2 diabetes mellitus without complications (ICD-10) Arthritis ?M19.90 - Unspecified osteoarthritis, unspecified site (ICD-10) Neck pain ?M54.2 - Cervicalgia (ICD-10) Surgical History 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 - Presence of aortocoronary bypass graft (ICD-10) History of appendectomy ?Z90.49 - Acquired absence of other specified parts of digestive tract (ICD-10) S/P prostatectomy ?Z90.79 - Acquired absence of other genital organ(s) (ICD-10) History of colonoscopy ?Z98.890 - Other specified postprocedural states (ICD-10) S/P epidural steroid injection ?Z92.241 - Personal history of systemic steroid therapy (ICD-10) Family History Other Cancer Family history of myocardial infarction Social History Within the past year, how often did you have a drink containing alcohol: 4 or more times a week Within the past year, how many standard drinks containing alcohol did you have on a typical day: 1 or 2 Total score: 0 Score interpretation: A score less than 4 is consistent with normal alcohol consumption. Smoking status: Never smoker Non-prescribed substance use: denies use Previous occupational history: [employer] Highest level of school completed/degree received: Associate degree: occupational, technical, vocational program Meds Home Medications and Allergies Home Medications ?Medication ?Instructions ?Recorded ?Confirmed ?Type CALCIUM & D3 .QD 12/13/23 History aspirin 81 mg capsule 81 mg PO DAILY 12/13/23 09/03/24 History atorvastatin 40 mg tablet 40 mg PO DAILY 12/13/23 09/03/24 History enzalutamide 80 mg tablet (Xtandi) 80 mg PO DAILY 12/13/23 09/03/24 History glimepiride 1 mg tablet 0.5 mg PO DAILY 12/13/23 09/03/24 History metformin 500 mg tablet 1,000 mg PO BID 12/13/23 09/03/24 History metoprolol succinate 25 mg 25 mg PO Q12H 12/13/23 09/03/24 History tablet,extended release 24 hr multivitamin with iron (Daily 1 tab PO DAILY 12/13/23 09/03/24 History Vites/Iron tablet) lisinopril 20 1 tab PO QPM 04/01/24 09/03/24 History mg-hydrochlorothiazide 12.5 mg tablet hydrocodone 5 mg-acetaminophen 325 1 tab PO Q6H PRN pain #8 tabs 04/08/24 09/03/24 Rx mg tablet Allergies Allergy/AdvReac Type Severity Reaction Status Date / Time Penicillins Allergy Mild Rash Verified 09/03/24 08:14 Exam Constitutional Documenting provider has reviewed patient's vital signs: yes Common normals: no apparent distress, oriented x3, healthy appearing, alert and well nourished General appearance: cooperative HENMT Common normals: normocephalic, hearing grossly normal bilaterally and moist oral mucous membranes Head and scalp: normocephalic Eye Common normals: PERRL Pupil: PERRL Neck & C-Spine Common normals: full ROM General: normal visual inspection Cervical spine: cervical ROM abnormal, pain with cervical ROM and cervical spine tenderness C2, C3 and C4 Other: left facet loading positive negative spurlings sensation intact BUE strength 5/5 in BUE Chest Common normals: inspection of chest normal Respiratory Common normals: normal respiratory effort, no retractions and no use of accessory muscles Neuro Common normals: oriented x3, CN's II-XII intact bilaterally, moves all extremities, no focal motor deficits, no sensory deficits noted and deep tendon reflexes 2+ bilaterally Sensorium/orientation: alert Motor exam: strength 5/5 throughout and no movement abnormalities noted Psych Common normals: mental status grossly normal, thought process normal, cooperative, affect normal, speech normal and activity/motor behavior normal Speech: normal speech Thought process: normal thought process Results Additional Findings Additional findings: If on a controlled substance or opioids, I have checked an [place] report on this patient and there are no aberrancies noted in the prescribing history.??If on a controlled substance or opioid a drug screen was completed and reviewed within the last year, and if there has not been a drug screen completed we ordered one today to monitor higher risk, state monitored pain medication use. As part of providing excellent, safe, comprehensive care, the following was completed at our patient's visit: 1. A medication reconciliation and review to ensure accurate knowledge of current/active medications, including asking our patients to inform us about any [id number] medications or herbal remedies/nutritional supplements/alternative remedies. 2. A review to specifically ensure our patients have had annual screening for screening for depression, screening for tobacco use, and screening for unhealthy alcohol use. For concerning screenings had a discussion with the patient, provided patient education, and recommended follow-up with primary care provider when appropriate. If patient noted with a risk of falling, they received education on strength, gait, and balance training to prevent future risk of falling. Portions of this note may have been carried over from the previous visit and updated as appropriate. Please note this office utilizes paper charting in addition to the electronic medical record. A list of current medications, vitals, and PMH is available there as the clinical staff outside of myself do not have access to [employer] charting during the clinic day operations. As part of providing quality comprehensive care the current medications, vitals, and PMH were reviewed in the paper chart. Assessment and Plan Assessment and Plan (1) Cervical spondylosis: Assessment and Plan: The patient has had over 3 months of moderate to severe neck pain with functional impairment and inadequate response to conservative care including NSAIDS (unless there are contraindication such as concurrent blood thinners), multiple oral or topical pain medications, and home exercise program/physical therapy.? Patient has completed >6 weeks of guided home exercise program and/or formal physical therapy program without relief of their symptoms.? I have reviewed the imaging of the cervical spine and no red flags were identified.? The imaging reveals radiographic findings consistent with cervical DDD and cervical spondylosis The Oswestry Disability Index was completed, and the patient scored a 8%.? The patient noted the following:?? moderate to severe pain, pain impacting ADLs We discussed the risks and benefits of the procedure with the patient, and we are NOT planning on using sedation as outlined in the guidelines from Medicare unless there is a documented reason that sedation would be strongly recommended.?? ?The procedure will be completed with fluoroscopic guidance.? (2) Cervical radiculopathy: Assessment and Plan: >80% improvement in radicular symptoms on exam (3) Myofascial pain: Plan left C2-3 C3-4 facet medial branch block x2 working towards RFA. previously failed left C4-5 C5-6 facet medial branch block continue HEP as tolerated continue current medications f/u after each injection
== END 2024-09-12 09:22 | disposition home or self-care (01) ==
LOC: PM 09:21
PROVIDERS: PCP Internal Medicine; Visit Provider Nurse Practitioner
DX: M47.812 Spondylosis without myelopathy or radiculopathy, cervical region (principal); M54.12 Radiculopathy, cervical region; M79.10 Myalgia, unspecified site
CPT/HCPCS: G0463

== ENCOUNTER 2024-09-30 10:57 | Outpatient (OUT) | payer MEDICARE, OTHER, SELFPAY ==
[2024-09-30 12:09] LABS: Prostate Specific Antigen Dx 0.27 ng/mL (<=4.00)
== END 2024-09-30 10:58 | disposition home or self-care (01) ==
LOC: LAB 11:03
PROVIDERS: PCP Internal Medicine; Visit Provider Urology
DX: C61 Malignant neoplasm of prostate (principal)
CPT/HCPCS: 36415; 84153

== ENCOUNTER 2024-10-07 11:04 | Day surgery (SDC) | payer MEDICARE, OTHER, SELFPAY ==
[2024-10-07 11:46] LABS: Glucometer 105 mg/dL (74-106)
[2024-10-07 11:47] VITALS: BP 144/72; PULSE 51; TEMP 36.4; O2SAT 100
[2024-10-07 12:25] VITALS: BP 162/72; PULSE 54; O2SAT 98
[2024-10-07 12:26] VITALS: BP 164/73; PULSE 56; O2SAT 97
[2024-10-07] MEDS: LIDOCAINE HCL 2% 400 MG/20 ML MDV INJ (12:26)
[2024-10-07] MEDS: BUPIVACAINE HCL 0.25% PF 25 MG/10 ML VIAL 8 ML INJ (12:26)
--- NOTE | 2024-10-07 12:28 | W.PM.PROCNOT ---
Date of procedure: 10/07/24 Pre-op diagnosis: Pain to cervical spondylosis without myelopathy Post-op diagnosis: same as pre-op Procedure: Procedure: Left C2-3, 3-4 medial branch block Medications: Bupivacaine 0.25% 6cc The patient was seen and examined in the preoperative holding area.? The informed consent was obtained and placed on the chart.? The patient was brought to the medical procedure unit and placed in the prone position.? A timeout was completed verifying correct patient, procedure site, positioning, plan, and special equipment.? Using aseptic technique, the needle is placed at left C2. Under direct fluoroscopic visualization, a Quincke tip needle was advanced to the midpoint of the waist of the articular pillar at the respective medial branch segment. The above-mentioned injectate was placed in a 1 mL aliquot proceeded by negative aspiration.? The needle was removed.? The procedure was completed at left C3, 4. Insertion site was covered.? Patient was taken to the postprocedural recovery area and monitored for an appropriate length of time before found suitable for discharge in the accompaniment of a responsible adult. Anesthesia: Local Surgeon: Nicole Herrera Pathology: none sent Condition: stable Disposition: no change
== END 2024-10-07 12:31 | disposition home or self-care (01) ==
LOC: SURGOUT 11:05
PROVIDERS: PCP Internal Medicine; Visit Provider Anesthesiology
DX: M47.812 Spondylosis without myelopathy or radiculopathy, cervical region (principal); E11.8 Type 2 diabetes mellitus with unspecified complications; Z79.84 Long term (current) use of oral hypoglycemic drugs
CPT/HCPCS: 36415; 64490; 64491; 82948; J0665

== ENCOUNTER 2024-10-10 09:07 | Outpatient (OUT) | payer MEDICARE, OTHER, SELFPAY ==
--- NOTE | 2024-10-10 09:30 | PM.CN ---
Consult Note: HPI Data of Consult Patient: known to practice within the last 3 years Requesting Physician: Cheryl Cox NP Primary Care Provider: Jamar Jones DO Consult Narrative Reason for consult: f/u Narrative: Rajesh Felix a pleasant 79 year old male presents for evaluation of chronic left sided neck pain. recently underwent C7/T1 MARNIE with mild relief and left C2/3 C3/4 MBB without improvement. continues to have moderate to severe left sided neck pain, today 5 increasing to 8/10 with watching TV, twisting head, and sleep. finds mild benefit to tylenol and voltaren gel. has failed to benefit from >6 weeks of PT and provider guided HEP, heat, ice, tylenol, and topical NSAIDs. recent cervical xray and MRI consistent with multilevel degenerative changes and cervical stenosis. cc:: CC: Cheryl Cox NP Review of Systems ROS Status of ROS 10 or more systems reviewed and unremarkable except as noted in history and below Musculoskeletal Reports: neck pain PFSH PFSH Medical History Anemia ?D64.9 - Anemia, unspecified (ICD-10) History of blood transfusion ?Z92.89 - Personal history of other medical treatment (ICD-10) Sleep apnea ?G47.30 - Sleep apnea, unspecified (ICD-10) COVID-19 ?U07.1 - COVID-19 (ICD-10) Prostate cancer ?C61 - Malignant neoplasm of prostate (ICD-10) Coronary artery disease ?I25.10 - Atherosclerotic heart disease of [place] coronary artery without angina pectoris (ICD-10) Diabetes ?E11.9 - Type 2 diabetes mellitus without complications (ICD-10) Arthritis ?M19.90 - Unspecified osteoarthritis, unspecified site (ICD-10) Neck pain ?M54.2 - Cervicalgia (ICD-10) Surgical History 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 - Presence of aortocoronary bypass graft (ICD-10) History of appendectomy ?Z90.49 - Acquired absence of other specified parts of digestive tract (ICD-10) S/P prostatectomy ?Z90.79 - Acquired absence of other genital organ(s) (ICD-10) History of colonoscopy ?Z98.890 - Other specified postprocedural states (ICD-10) S/P epidural steroid injection ?Z92.241 - Personal history of systemic steroid therapy (ICD-10) Family History Other Cancer Family history of myocardial infarction Social History Within the past year, how often did you have a drink containing alcohol: 4 or more times a week Within the past year, how many standard drinks containing alcohol did you have on a typical day: 1 or 2 Total score: 0 Score interpretation: A score less than 4 is consistent with normal alcohol consumption. Smoking status: Never smoker Non-prescribed substance use: denies use Previous occupational history: [employer] Highest level of school completed/degree received: Associate degree: occupational, technical, vocational program Meds Home Medications and Allergies Home Medications ?Medication ?Instructions ?Recorded ?Confirmed ?Type CALCIUM & D3 .QD 12/13/23 History aspirin 81 mg capsule 81 mg PO DAILY 12/13/23 10/07/24 History atorvastatin 40 mg tablet 40 mg PO DAILY 12/13/23 10/07/24 History enzalutamide 80 mg tablet (Xtandi) 80 mg PO DAILY 12/13/23 10/07/24 History glimepiride 1 mg tablet 0.5 mg PO DAILY 12/13/23 10/07/24 History metformin 500 mg tablet 1,000 mg PO BID 12/13/23 10/07/24 History metoprolol succinate 25 mg 25 mg PO Q12H 12/13/23 10/07/24 History tablet,extended release 24 hr multivitamin with iron (Daily 1 tab PO DAILY 12/13/23 10/07/24 History Vites/Iron tablet) lisinopril 20 1 tab PO QPM 04/01/24 10/07/24 History mg-hydrochlorothiazide 12.5 mg tablet hydrocodone 5 mg-acetaminophen 325 1 tab PO Q6H PRN pain #8 tabs 04/08/24 10/07/24 Rx mg tablet Allergies Allergy/AdvReac Type Severity Reaction Status Date / Time Penicillins Allergy Mild Rash Verified 10/07/24 11:44 Exam Constitutional Documenting provider has reviewed patient's vital signs: yes Common normals: no apparent distress, oriented x3, healthy appearing, alert and well nourished General appearance: cooperative HENPR Common normals: normocephalic, hearing grossly normal bilaterally and moist oral mucous membranes Head and scalp: normocephalic Eye Common normals: PERRL Pupil: PERRL Neck & C-Spine Common normals: full ROM General: normal visual inspection Cervical spine: cervical ROM abnormal, pain with cervical ROM and cervical spine tenderness C2, C3 and C4 Other: left facet loading positive positive spulings increased pain following left C3,4,5 dermatomal pattern strength 4/5 in LUE and 5/5 in RUE Chest Common normals: inspection of chest normal Respiratory Common normals: normal respiratory effort, no retractions and no use of accessory muscles Neuro Common normals: oriented x3, CN's II-XII intact bilaterally, moves all extremities, no focal motor deficits, no sensory deficits noted and deep tendon reflexes 2+ bilaterally Sensorium/orientation: alert Motor exam: strength 5/5 throughout and no movement abnormalities noted Psych Common normals: mental status grossly normal, thought process normal, cooperative, affect normal, speech normal and activity/motor behavior normal Speech: normal speech Thought process: normal thought process Results Additional Findings Additional findings: If on a controlled substance or opioids, I have checked an [place] report on this patient and there are no aberrancies noted in the prescribing history.??If on a controlled substance or opioid a drug screen was completed and reviewed within the last year, and if there has not been a drug screen completed we ordered one today to monitor higher risk, state monitored pain medication use. As part of providing excellent, safe, comprehensive care, the following was completed at our patient's visit: 1. A medication reconciliation and review to ensure accurate knowledge of current/active medications, including asking our patients to inform us about any [id number] medications or herbal remedies/nutritional supplements/alternative remedies. 2. A review to specifically ensure our patients have had annual screening for screening for depression, screening for tobacco use, and screening for unhealthy alcohol use. For concerning screenings had a discussion with the patient, provided patient education, and recommended follow-up with primary care provider when appropriate. If patient noted with a risk of falling, they received education on strength, gait, and balance training to prevent future risk of falling. Portions of this note may have been carried over from the previous visit and updated as appropriate. Please note this office utilizes paper charting in addition to the electronic medical record. A list of current medications, vitals, and PMH is available there as the clinical staff outside of myself do not have access to [facility] charting during the clinic day operations. As part of providing quality comprehensive care the current medications, vitals, and PMH were reviewed in the paper chart. Assessment and Plan Assessment and Plan (1) Cervical spinal stenosis: Assessment and Plan: The patient has had over 3 months of moderate to severe neck pain with functional impairment and inadequate response to conservative care including NSAIDS (unless there are contraindication such as concurrent blood thinners), multiple oral or topical pain medications, and home exercise program/physical therapy.? Patient has completed >6 weeks of guided home exercise program and/or formal physical therapy program without relief of their symptoms.? I have reviewed the imaging of the cervical spine and no red flags were identified.? The imaging reveals radiographic findings consistent with cervical DDD and cervical spondylosis The Oswestry Disability Index was completed, and the patient scored a 22%.? The patient noted the following:?? moderate to severe pain, pain impacting ADLs We discussed the risks and benefits of the procedure with the patient, and we are NOT planning on using sedation as outlined in the guidelines from Medicare unless there is a documented reason that sedation would be strongly recommended.?? ?The procedure will be completed with fluoroscopic guidance.? (2) Cervical radiculopathy: (3) Cervical spondylosis: (4) Myofascial pain: Plan left C3-4 C4-[address] Herrera continue HEP as tolerated continue current medications f/u 2 weeks after injection
== END 2024-10-10 09:08 | disposition home or self-care (01) ==
LOC: PM 09:07
PROVIDERS: PCP Internal Medicine; Visit Provider Nurse Practitioner
DX: M48.02 Spinal stenosis, cervical region (principal); M54.12 Radiculopathy, cervical region; M47.812 Spondylosis without myelopathy or radiculopathy, cervical region; M79.18 Myalgia, other site
CPT/HCPCS: G0463

== ENCOUNTER 2024-10-21 08:57 | Day surgery (SDC) | payer MEDICARE, OTHER, SELFPAY ==
[2024-10-21 09:10] VITALS: BP 125/66; PULSE 56; TEMP 36.1; O2SAT 97
[2024-10-21 09:14] LABS: Glucometer 105 mg/dL (74-106)
[2024-10-21 10:11] VITALS: BP 125/53; PULSE 53; O2SAT 97
[2024-10-21] MEDS: BUPIVACAINE HCL 0.25% PF 25 MG/10 ML VIAL INJ (10:12)
[2024-10-21] MEDS: DEXAMETHASONE SOD PHOS 10 MG/ML VIAL INJ (10:12)
[2024-10-21] MEDS: IOHEXOL 240 MG/ML - 10 ML VIAL INJ (10:13)
[2024-10-21] MEDS: LIDOCAINE HCL 2% 400 MG/20 ML MDV 3 ML INJ (10:13)
[2024-10-21 10:14] VITALS: BP 146/63; PULSE 59; O2SAT 95
--- NOTE | 2024-10-21 10:17 | P.ON_ITS ---
Date of procedure: 10/21/24 Pre-op diagnosis: M54.12 Post-op diagnosis: same as pre-op Procedure: Procedure: Left C3-4, 4-5 transforaminal epidural steroid injection Medications: Bupivacaine 0.25% 1cc, lidocaine 2% 1cc, dexamethasone 10mg The patient was seen and examined in the preoperative holding area.? Informed consent was obtained and placed on the chart.? Patient was brought to the medical procedure unit and placed in the prone position where a timeout was completed verifying the correct patient, procedure site, position, and planned special equipment using sterile aseptic technique.? Under direct fluoroscopic visualization a 25-gauge Quincke tipped spinal needle was advanced to the designated neural foramen where contrast dye was injected to show adequate spread.? The needle was inserted at level left C3-4. There was no evidence of vascular or adverse uptake.? Epidural spread was appreciated.? The above- mentioned injectate was then placed in a 1.5 mL aliquot preceded by negative aspiration.? The needle was removed. The needle was inserted and the procedure repeated at level left C4-5.? The surgery site was covered.? Patient was taken to the postprocedural recovery area and monitored for an appropriate length of time before found suitable for discharge in the accompaniment of a responsible adult. Anesthesia: Local Surgeon: Nicole Herrera Pathology: none sent Condition: stable Disposition: no change
== END 2024-10-21 10:18 | disposition home or self-care (01) ==
LOC: SURGOUT 08:58
PROVIDERS: PCP Internal Medicine; Visit Provider Anesthesiology
DX: M54.12 Radiculopathy, cervical region (principal); E11.8 Type 2 diabetes mellitus with unspecified complications; Z79.84 Long term (current) use of oral hypoglycemic drugs
CPT/HCPCS: 36415; 64479; 64480; 82948; J0665; J1100; Q9966

== ENCOUNTER 2024-10-30 08:04 | Outpatient (OUT) | payer MEDICARE, OTHER, SELFPAY ==
--- OUTSIDE RECORDS SUMMARY | 2024-10-30 08:18 | XMS_ITS | CCD ---
Author Organization [facility] Care Team Providers Care Rotary Driller Helper Name Role Phone Jamar Fall DO Primary Care Provider Marco A Esqueda MD R Unavailable [facility] [employer] MANAGER.ALEXA, Christo Unavailable Lauren WELSH, Clementine Unavailable JAMAR FALL Primary Care Physician [phone] Jamar Fall DO Primary Care Provider Marco A Esqueda MD R Unavailable [employer] MANAGER.ALEXA, Christo Unavailable [phone] Lauren WELSH, Clementine Unavailable [phone] Jamar Fall DO Primary Care Provider Dheeraj JAMES, Marco A R Unavailable [facility] [employer] MANAGER.Cary LIUy Unavailable Lauren WELSH, Clementine Unavailable Jamar [...] Consulting Unavaila ble Lauren RN, Clementine Unavailable [phone] Brandon Fall MD, Jamar Lopez Primary Care Provider Juan David SEGUNDO, Jamar Lopez Primary Care Provider LONG BOO Attending Unavailable MARCO A ESQUEDA Referring Unavailable EMELINA LOUIS Attending Unavailable BALL, JAMAR E Referring Unavailable PABLO CHRISTINA Attending Unavailable LONG BOO Attending Unavailable ALEXIA FRANCO Attending Unavailable ELTARODNEY, BRIDGER Attending Unavailable LORA ENGLISH Attending Unavailable SCRUGGSAnthony R Attending Unavailable SCRUGGS, Anthony R Attending Unavailable SCRUGGS, Anthony R Attending Unavailable SCRUGGS, Anthony R Attending Unavailable BALL, JAMAR E Primary Care Unavailable DHEERAJ, MARCO A R Referring Unavailable BALL, JAMAR E Primary Care Unavailable CHRISTO HOWARD Attending Unavailable DHEERAJ, MARCO A R Referring Unavailable BALL, JAMAR E Primary Care Unavailable BALL, JAMAR E Primary Care Unavailable ESQUEDA, MARCO A R Referring Unavailable BALL, JAMAR E Primary Care Unavailable CHRISTO HOWARD Attending Unavailable ESQUEDA, MARCO A R Referring Unavailable BALL, JAMAR E Primary Care Unavailable BALL, JAMAR E Primary Care Unavailable ESQUEDA, MARCO A R Referring Unavailable BALL, JAMAR E Primary Care Unavailable MARCO A ESQUEDA R Attending Unavailable ESQUEDA, MARCO A R Referring Unavailable BALL, JAMAR E Primary Care Unavailable BALL, JAMAR E Primary Care Unavailable ESQUEDA, MARCO A R Referring Unavailable BALL, JAMAR E Primary Care Unavailable LYNNE ALARCON Attending Unavailable DHEERAJ, MARCO A R Referring Unavailable BALL, JAMAR E Primary Care Unavailable Sharon JAMES, Nicole Lang Attending Unavailable Sharon JAMES, Nicole Lang Attending Unavailable Allergies Allergy Classification Reported Allergen(s) Allergy Type Date of Onset Reaction(s) Facility (18 sources) Penicillins; Translations: [PENICILLINS] Drug Allergy 1 Unknown [facility] (20 sources) Penicillin G; Translations: [penicillin G benzathine] Drug Allergy 1 Unknown (qualifier value) [facility] (20 sources) Penicillins Drug Allergy 5 Unknown [facility] (20 sources) Simvastatin; Translations: [SIMVASTATIN] Drug Allergy 2 Unknown [facility] (1 source) Penicillins Drug allergy (disorder) 5 [facility] (1 source) Penicillin Drug Allergy Unknown [employer] [employer] Other (1 source) Allergies Reconciled Propensity to adverse reactions Unknown [employer] Other (1 source) patient allergy list reviewed by nurse or physicia Propensity to adverse reactions 9 Comment:Done [employer] Other (3 sources) Simvastatin Propensity to adverse reactions 2 [facility] (1 source) Penicillins Drug Allergy 5 Unknown [facility] Medications Current Medications Medication Drug Class(es) Dates [...] 40 mg tablet Active 0 .ROUTE .COMPLEX 90 September 01, 2024 8:43am TAKE 1 TABLET [...] on above: Take 2 tablets by mo [facility] once daily. Contour Next - (20 [...] 1 mg tablet Active 0 .ROUTE .COMPLEX 15 August 02, 2024 2:03pm TAKE 1/2 TABLET [...] sources) Anticholinergic Start: 10-20-2023 ipratropium Nasal 0.06% [place] Refill(s) 0 Start Date: 10/20/23 Status: Ordered [...] 1:00am Start: 08-17-2021 take 1 tablet by anupaam th once daily metFORMIN (GLUCOPHAGE) 1,000 mg tablet Take 1,000 mg by mouth once daily. 08/17/2021 Active Start: 08-17-2021 take 2 tablets by mo uth once daily at mealtime metFORMIN (GLUCOPHAGE) 500 [...] by mouth twice daily. Take by mouth. Tnyywihzthvkf-Fzisoauv-Yeicu n (MULTIVITAMIN 50 PLUS) tab (20 sources) [...] Comment on above: Take 1 tablet by [facility] twice daily. clopidogrel 75 mg oral tablet [...] Coronary arteriosclerosis; Translations: [Atherosclerotic heart disease of [place] coronary artery without angina pectoris] Onset: 10-10-2014 [...] above: Echo: ROGER 1.13, [place] 324, 42/23 - 04/2022Echo: ROGER 1.3, Velocity 280, gradient [...] Interpretation Reference Range Facility Ambulatory Visit Summaryon 0 10-07-2024 Ambulatory Visit Summary Ambulatory Visit Summary PABLO FELIX :1945 Visit Date:10/07/2024 Ambulatory Visit Instructions Your Diagnosis Rising PSA following treatment for malignant neoplasm of prostate Prostate cancer Microscopic hematuria Kidney stones Your Care Team [...] mg Tab) ipratropium nasal (ipratropium Nasal 0.06% [place]) metformin (metformin 1000 mg oral tablet) metoprolol (metoprolol 25 mg ER Tab) Procedures Performed Carpal tunnel release (2023), External beam radiotherapy (03/30/2018), Cystoscopy (10/20/2015), Radical prostatectomy (11/05/2014), 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 Discharge Vitals Temperature (Temporal Artery) 37 ???C Heart Rate (Peripheral) 68 Respiratory Rate 16 Blood Pressure 128/82 Height 167 cm Height 66 in Weight 92.7 kg Weight 204.368 lb BMI 33.24 What to do next Scheduled Follow-Up Appointments Monday 9:45 AM EDT With: Anthony SCRUGGS MD Where: [facility] [address] [place] [address]- You Need to Schedule the Following Appointments Follow Up with Anthony SCRUGGS MD, URL When: Comments: 6 mos w/ PSA and Lupron Where: [facility] [address], [place] [address]- [phone] Medications What How Much When Instructions Unchanged [...] concerns Unchanged ipratropium nasal (ipratropium Nasal 0.06% [place]) Contact prescribing physician if questions or concerns [...] choosing us for your care. Education Materials Hormone Suppression Therapy for Prostate Cancer Hormone suppression therapy is a treatment for prostate cancer that can help slow the growth of cancer cells in the prostate gland. It is also called androgen deprivation therapy (ADT) or androgen suppression therapy. Hormone suppression therapy targets male sex hormones (androgens) in the body that help cancer cells grow. Hormone suppression therapy alone will not cure prostate cancer, but it can slow the growth of cancer cells and may shrink tumors over time. Your health care provider can help you find the best treatment that fits your lifestyle. Hormone suppression therapy may be used in the following cases: ??? When prostate cancer has spread too far to other places in the body and cannot be cured by surgery or radiation. ??? When a person has health problems that prevent the use of surgery or radiation. ??? Before radiation to help shrink the size of the cancer and make the radiation treatment more effective. ??? If the prostate cancer (more content not included)... Normal [facility] Urology Office/Clinic Noteon 10-07-2024 Urology Office/Clinic Note Urology Office/Clinic Note Chief Complaint 6 month with PSA and possible Lupron HPI Staff 6m PSA w/ possible Lupron. Previous DX: Rising PSA following Tx for Prostate Cancer, Prostate Cancer, Microscopic Hematuria, Kidney Stones 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 *Xtandi 160mg QD and Xgeva q3m. PSA: 04/12/24 - 0.23 09/30/24 - 0.27 Pt states that he has no urinary complaints at this time History of Present Illness Tests reviewed: reviewed UA, PSA I have reviewed the previous health record information and history for this patient from Dr. Scruggs. I have reviewed and verified the staff HPI to be accurate for this encounter. Review of Systems PHQ Score Initial [...] Physical Exam Vitals & Measurements T: 37 ???C(Temporal Artery) HR: 68(Peripheral) RR: 16 BP: 128/82 HT: 167 cm HT: 66 in WT: 92.7 kg WT: 204.368 lb BMI: 33.24 General Appearance: alert, no distress, well nourished, well developed male. Assessment/Plan 79 yo male here for another possible Lupron injection. T2DM. Pt accompanied by today. 1. Rising PSA following treatment for malignant neoplasm of prostate (R97.21: Rising PSA following treatment for malignant neoplasm of prostate) PSA: 10/25/21 - 2.64 05/05/22 - 0.15 10/25/22 - 0.13 02/02/23 - 0.09 04/12/23 - 0.14 04/24/23 - 0.12 07/27/23 - 0.13 10/09/23 - <0.13 10/29/23 - 0.16 01/25/24 - 0.15 04/12/24 - 0.23 09/30/24 - 0.27 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 Lucrecia 9 (5+4), pT2b, N0, Mo. Last Lupron administered 04/19/24, prior to that was 04/2022. Last saw oncology 08/08/24. Plan was to continue Xtandi daily and Xgeva q3m, and Lupron q6m per our office. Taking Xtandi 160mg qd and Xgeva q3mos. PSA increased slightly from prior. Lupron 45 mgIM injection given today with no complications. Right glute. Pt. denies side effects at this time. -F/u in 6 mos w/ PSA and Lupron 2. Prostate cancer (C61: Malignant neoplasm of prostate) See #1. 3. Microscopic hematuria (R31.29: Other microscopic hematuria) S/p Cysto 08/21/15. This is chronic. Likely due to radiation. [1] UA today negative for blood and infection. 4. Kidney stones (N20.0: Calculus of kidney) KUB 04/21/23 neg for obvious stones. KUB 10/09/23 shows probable punctate calculi over the right renal region. [2] Follow-up With When Contact Information KAEL JAMES, Anthony Lee, URL [facility] [address], [place] [address]- [phone] Additional Instructions: 6 mos w/ PSA and Lupron Patient Education Hormone Suppression Therapy for Prostate Cancer IJeanine, personally scribed for Dr. Scruggs on 10/07/2024 09:59:19. . Documentation recorded by the scribe, Jeanine Crandall, accurately reflects the services(s) I performed and decisions made by me. Authenticated by Dr. Scruggs on 10/07/2024 10:00:52. Problem List/Past Medical History Ongoing CAD (coronary [...] 1 tab(s), Oral, Daily ipratropium Nasal 0.06% [place] metformin 1000 mg oral tablet, Oral, BID metoprolol 25 mg ER Tab, 25 mg= 1 tab(s), Oral, BID Vitamin D3 Xtandi 80 mg oral tablet, Oral, Daily Allergies penicillin G benzathine (Unknown) Social History Alcohol Current. Liquor. 1-2 times per year., 10/03/2024 Substance Abuse Never., 10/03/2024 Tobacco Never (less than 100 in lifetime) Tobacco Use:. Never Smokeless Tobacco Use:. Household tobacco concerns: No., 10/07/2024 Family History Cancer - unknown origin: Mother. Myocardial infarct: Father. Immunizations Vaccine Date Status Comments influenza virus vacc (more content not included)... Normal [facility] Comment on above: Result Comment: Elec tronically Signed By: Anthony SCRUGGS MD\.br\Date and Time Signed: 10/07/24 10:00 EDT\.br\Electronically Co-Signed By: Jeanine Crandall.br\Date and Time Co-Signed: 10/07/24 09:59 EDT CNOVSPon 08-08-2024 CNOVSP Visit (SP) Office ([facility]) PABLO FELIX ([id number]) 1945 M Date Time Provider Department 08/08/24 9:30 AM CHRISTO HOWARD During your visit today, we recorded the following information about you: Temperature Pulse Respiration Blood pressure 97.9 degrees 57/minute 16/minute 149/56 Weight Height 95 kg 1.676 m Christo Howard APRN.SALES CORRESPONDENT 08/08/2024 12:09 PM Signed PATIENT NAME: Pablo Felix DATE: 08/08/2024 PRIMARY CARE PHYSICIAN: Dr. Jamar Fall OTHER PHYSICIANS: Dr. Anthony Scruggs, Dr. Khan, [facility] Portions of this encounter note have [...] mg 24 hr tablet Take by mouth. 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 Left base margin positive for neoplasm. Seminal vesicles with no diagnostic abnormality. 2 resected lymph nodes negative for neoplasm. LABS: Hemoglobin (g/dL) Date Value 08/01/2024 12.2 05/08/2018 12.8 Hematoc (more content not included)... Normal [facility] Basophils Auto (Bld) [#/Vol] on 08-01-2024 Basophils (Bld) [#/Vol] Automated basophil count <0.11 [facility] Basophils/100 WBC Auto (Bld) on 08-01-2024 Basophils/100 WBC (Bld) Automated basophil % [facility] Blood manual differential co mment interpretation narrativeon 08-01-2024 Manual differential comment [place] (Bld) [Interp] Blood manual differential comment interpretation narrative [facility] CBC W Auto Differential pane l (Bld)on 08-01-2024 Basophils (Bld) [#/Vol] 0.03 10*3/uL [facility] Basophils/100 WBC (Bld) 0.5 % [facility] Differential cell count method Nom (Bld) Auto [facility] Eosinophils (Bld) [#/Vol] 0.5 10*3/uL High [facility] Eosinophils/100 WBC (Bld) 8.5 % [facility] Erythrocyte distribution width (RBC) [Ratio] 12.7 % 11.5 - 15.0 % [facility] Hematocrit (Bld) [Volume fraction] 35.7 % Low 39.0 - 51.0 % [facility] Hemoglobin (Bld) [Mass/Vol] 12.2 g/dL Low 13.0 - 17.0 g/dL [facility] Immature granulocytes (Bld) [#/Vol] 0.04 10*3/uL [facility] Immature granulocytes/100 WBC (Bld) 0.7 % [facility] Interpretation and review of laboratory results Abnormal [facility] Lymphocytes (Bld) [#/Vol] 1.55 10*3/uL [facility] Lymphocytes/100 WBC (Bld) 26.5 % [facility] MCH (RBC) [Entitic mass] 32.4 pg 26.0 - 34.0 pg [facility] MCHC (RBC) [Mass/Vol] 34.2 g/dL 30.5 - 36.0 g/dL [facility] MCV (RBC) [Entitic vol] 94.9 fL 80.0 - 100.0 fL [facility] Monocytes (Bld) [#/Vol] 0.55 10*3/uL NINF [facility] Monocytes/100 WBC (Bld) 9.4 % [facility] Neutrophils (Bld) [#/Vol] 3.19 10*3/uL [facility] Neutrophils/100 WBC (Bld) 54.4 % [facility] Nucleated RBC (Bld) [#/Vol] NINF [facility] Nucleated RBC/100 WBC (Bld) [Ratio] 0 % /100 WBC [facility] Platelet mean volume (Bld) [Entitic vol] 9.4 fL 9.0 - 12.7 fL [facility] Platelets (Bld) [#/Vol] 177 10*3/uL [facility] RBC (Bld) [#/Vol] 3.76 10*6/uL Low 4.20 - 6.0 0 m/uL [facility] WBC (Bld) [#/Vol] 5.86 10*3/uL [facility] Basophils (Bld) [#/Vol] 0.03 10*3/uL Normal <0.11 [facility] Comment on above: Order Comment: Speci men Type: BLOOD SPECIMEN Ordering Facility: [facility] Address: [address] [place] [address] Performed By: #### 2 857-1 #### [facility] CLIA [id number] [address] [place] [address] [place] Basophils/100 WBC (Bld) 0.5 % Normal [facility] Comment on above: Order Comment: Speci men Type: BLOOD SPECIMEN Ordering Facility: [facility] Address: [address] [place] [address] Performed By: #### 2 857-1 #### [facility] CLIA [id number] [address] [place] [address] [place] Differential cell count method Nom (Bld) Auto Normal [facility] Comment on above: Order Comment: Speci men Type: BLOOD SPECIMEN Ordering Facility: [facility] Address: [address] [place] [address] Performed By: #### 2 857-1 #### [facility] CLIA [id number] [address] [place] [address] [place] Eosinophils (Bld) [#/Vol] 0.50 10*3/uL High <0.46 [facility] Comment on above: Order Comment: Speci men Type: BLOOD SPECIMEN Ordering Facility: [facility] Address: [address] [place] [address] Performed By: #### 2 857-1 #### [facility] CLIA [id number] [address] [place] [address] [place] Eosinophils/100 WBC (Bld) 8.5 % Normal [facility] Comment on above: Order Comment: Speci men Type: BLOOD SPECIMEN Ordering Facility: [facility] Address: [address] [place] [address] Performed By: #### 2 857-1 #### [facility] CLIA [id number] [address] [place] [address] [place] Erythrocyte distribution width (RBC) [Ratio] 12.7 % Normal 11.5-15.0 [facility] Comment on above: Order Comment: Speci men Type: BLOOD SPECIMEN Ordering Facility: [facility] Address: [address] [place] [address] Performed By: #### 2 857-1 #### [facility] CLIA [id number] [address] [place] [address] [place] Hematocrit (Bld) [Volume fraction] 35.7 % Low 39.0-51.0 [facility] Comment on above: Order Comment: Speci men Type: BLOOD SPECIMEN Ordering Facility: [facility] Address: [address] [place] [address] Performed By: #### 2 857-1 #### [facility] CLIA [id number] [address] [place] [address] [place] Hemoglobin (Bld) [Mass/Vol] 12.2 g/dL Low 13.0-17.0 [facility] Comment on above: Order Comment: Speci men Type: BLOOD SPECIMEN Ordering Facility: [facility] Address: [address] [place] [address] Performed By: #### 2 857-1 #### [facility] CLIA [id number] [address] [place] [address] [place] Immature granulocytes (Bld) [#/Vol] 0.04 10*3/uL Normal <0.10 [facility] Comment on above: Order Comment: Speci men Type: BLOOD SPECIMEN Ordering Facility: [facility] Address: [address] [place] [address] Performed By: #### 2 857-1 #### [facility] CLIA [id number] [address] [place] [address] [place] Immature granulocytes/100 WBC (Bld) 0.7 % Normal [facility] Comment on above: Order Comment: Speci men Type: BLOOD SPECIMEN Ordering Facility: [facility] Address: [address] [place] [address] Performed By: #### 2 857-1 #### [facility] CLIA [id number] [address] [place] [address] [place] Lymphocytes (Bld) [#/Vol] 1.55 10*3/uL Normal 1.00-4.00 [facility] Comment on above: Order Comment: Speci men Type: BLOOD SPECIMEN Ordering Facility: [facility] Address: [address] [place] [address] Performed By: #### 2 857-1 #### [facility] CLIA [id number] [address] [place] [address] [place] Lymphocytes/100 WBC (Bld) 26.5 % Normal [facility] Comment on above: Order Comment: Speci men Type: BLOOD SPECIMEN Ordering Facility: [facility] Address: [address] [place], [place] [id number] Performed By: #### 2 857-1 #### [facility] CLIA [id number] [address] [place] [address] [place] MCH (RBC) [Entitic mass] 32.4 pg Normal 26.0-34.0 [facility] Comment on above: Order Comment: Speci men Type: BLOOD SPECIMEN Ordering Facility: [facility] Address: [address] [place] [address] Performed By: #### 2 857-1 #### [facility] CLIA [id number] [address] [place] [address] [place] MCHC (RBC) [Mass/Vol] 34.2 g/dL Normal 30.5-36.0 [facility] Comment on above: Order Comment: Speci men Type: BLOOD SPECIMEN Ordering Facility: [facility] Address: [address] [place] [address] Performed By: #### 2 857-1 #### [facility] CLIA [id number] [address] [place] [address] [place] MCV (RBC) [Entitic vol] 94.9 fL Normal 80.0-100.0 [facility] Comment on above: Order Comment: Speci men Type: BLOOD SPECIMEN Ordering Facility: [facility] Address: [address] [place] [address] Performed By: #### 2 857-1 #### [facility] CLIA [id number] [address] [place] [address] [place] Monocytes (Bld) [#/Vol] 0.55 10*3/uL Normal <0.87 [facility] Comment on above: Order Comment: Speci men Type: BLOOD SPECIMEN Ordering Facility: [facility] Address: [address] [place] [address] Performed By: #### 2 857-1 #### [facility] CLIA [id number] [address] [place] [address] [place] Monocytes/100 WBC (Bld) 9.4 % Normal [facility] Comment on above: Order Comment: Speci men Type: BLOOD SPECIMEN Ordering Facility: [facility] Address: [address] [place] [address] Performed By: #### 2 857-1 #### [facility] CLIA [id number] [address] [place] [address] [place] Neutrophils (Bld) [#/Vol] 3.19 10*3/uL Normal 1.45-7.50 [facility] Comment on above: Order Comment: Speci men Type: BLOOD SPECIMEN Ordering Facility: [facility] Address: [address] [place] [address] Performed By: #### 2 857-1 #### [facility] CLIA [id number] [address] [place] [address] [place] Neutrophils/100 WBC (Bld) 54.4 % Normal [facility] Comment on above: Order Comment: Speci men Type: BLOOD SPECIMEN Ordering Facility: [facility] Address: [address] [place] [address] Performed By: #### 2 857-1 #### [facility] CLIA [id number] [address] [place] [address] [place] Nucleated RBC (Bld) [#/Vol] 10*3/uL Normal <0.01 [facility] Comment on above: Order Comment: Speci men Type: BLOOD SPECIMEN Ordering Facility: [facility] Address: [address] [place] [address] Performed By: #### 2 857-1 #### [facility] CLIA [id number] [address] [place] [address] [place] Nucleated RBC/100 WBC (Bld) [Ratio] 0.0 /100 WBC Normal [facility] Comment on above: Order Comment: Speci men Type: BLOOD SPECIMEN Ordering Facility: [facility] Address: [address] [place] [address] Performed By: #### 2 857-1 #### [facility] CLIA [id number] [address] [place] [address] [place] Platelet mean volume (Bld) [Entitic vol] 9.4 fL Normal 9.0-12.7 [facility] Comment on above: Order Comment: Speci men Type: BLOOD SPECIMEN Ordering Facility: [facility] Address: [address] [place] [address] Performed By: #### 2 857-1 #### [facility] CLIA [id number] [address] [place] [address] [place] Platelets (Bld) [#/Vol] 177 10*3/uL Normal 150-400 [facility] Comment on above: Order Comment: Speci men Type: BLOOD SPECIMEN Ordering Facility: [facility] Address: [address] [place] [address] Performed By: #### 2 857-1 #### [facility] CLIA [id number] [address] [place] [address] [place] RBC (Bld) [#/Vol] 3.76 10*6/uL Low 4.20-6.00 [facility] Comment on above: Order Comment: Speci men Type: BLOOD SPECIMEN Ordering Facility: [facility] Address: [address] [place] [address] Performed By: #### 2 857-1 #### [facility] CLIA [id number] [address] [place] [address] [place] WBC (Bld) [#/Vol] 5.86 10*3/uL Normal 3.70-11.00 [facility] Comment on above: Order Comment: Speci men Type: BLOOD SPECIMEN Ordering Facility: [facility] Address: [address] [place] [address] Performed By: #### 2 857-1 #### [facility] CLIA [id number] [address] [place] [address] [place] Comprehensive metabolic 2000 panelOrdered By: Liza Lilly on 08-01-2024 Albumin [Mass/Vol] 4.2 g/dL 3.9 - 4.9 g/dL [facility] ALP [Catalytic activity/Vol] 75 U/L 38 - 113 U/L [facility] ALT [Catalytic activity/Vol] 17 U/L 10 - 54 U/L [facility] Anion gap [Moles/Vol] 11 mmol/L 8 - 15 mmol/L [facility] AST [Catalytic activity/Vol] 17 U/L 14 - 40 U/L [facility] Bilirubin [Mass/Vol] 0.6 mg/dL 0.2 - 1.3 mg/dL [facility] Calcium [Mass/Vol] 10.3 mg/dL High 8.5 - 10. 2 mg/dL [facility] Chloride [Moles/Vol] 100 mmol/L 98 - 107 mmol/L [facility] CO2 [Moles/Vol] 26 mmol/L 22 - 30 mmol/L [facility] Creatinine [Mass/Vol] 0.81 mg/dL 0.73 - 1.22 mg/dL [facility] GFR/1.73 sq M.predicted among non-blacks MDRD (S/P/Bld) [Vol rate/Area] 90 mL/min/{1.73_m2} - PINF [facility] Comment on above: Estimated Glomerular [...] eGFR may not accurately reflect actual GFR. Glucose [Mass/Vol] 119 mg/dL High 74 - 99 mg/dL [facility] Comment on above: The [place] Di[employer] Association (ADA) provides guidance for [...] Standards of Medical Care in Diabetes 2016, [place] [employer]. Diabetes Care. 2016.39(Suppl 1). Interpretation and review of laboratory results Abnormal [facility] Potassium [Moles/Vol] 4.8 mmol/L 3.7 - 5.1 mmol/L [facility] Protein [Mass/Vol] 6.3 g/dL 6.3 - 8.0 g/dL [facility] Sodium [Moles/Vol] 137 mmol/L 136 - 144 mmol/L [facility] Urea nitrogen [Mass/Vol] 14 mg/dL 9 - 24 mg/dL [facility] Comprehensive metabolic 2000 panelon 08-01-2024 Albumin [Mass/Vol] 4.2 g/dL Normal 3.9-4.9 [facility] Comment on above: Order Comment: Nicanor camilo Type: BLOOD SPECIMEN Ordering Facility: [facility] Address: [address] [place] [address] Performed By: #### 2 857-1 #### [facility] CLIA [id number] [address] [place] [address] [place] ALP [Catalytic activity/Vol] 75 U/L Normal 38-113 [facility] Comment on above: Order Comment: Nicanor camilo Type: BLOOD SPECIMEN Ordering Facility: [facility] Address: [address] [place] [address] Performed By: #### 2 857-1 #### [facility] CLIA [id number] [address] [place] [address] [place] ALT [Catalytic activity/Vol] 17 U/L Normal 10-54 [facility] Comment on above: Order Comment: Francii men Type: BLOOD SPECIMEN Ordering Facility: [facility] Address: [address] [place] [address] Performed By: #### 2 857-1 #### [facility] CLIA [id number] [address] [place] [address] [place] Anion gap [Moles/Vol] 11 mmol/L Normal 8-15 [facility] Comment on above: Order Comment: Speci men Type: BLOOD SPECIMEN Ordering Facility: [facility] Address: [address] [place] [address] Performed By: #### 2 857-1 #### [facility] CLIA [id number] [address] [place] [address] [place] AST [Catalytic activity/Vol] 17 U/L Normal 14-40 [facility] Comment on above: Order Comment: Speci men Type: BLOOD SPECIMEN Ordering Facility: [facility] Address: [address] [place] [address] Performed By: #### 2 857-1 #### [facility] CLIA [id number] [address] [place] [address] [place] Bilirubin [Mass/Vol] 0.6 mg/dL Normal 0.2-1.3 [facility] Comment on above: Order Comment: Speci men Type: BLOOD SPECIMEN Ordering Facility: [facility] Address: [address] [place] [address] Performed By: #### 2 857-1 #### [facility] CLIA [id number] [address] [place] [address] [place] Calcium [Mass/Vol] 10.3 mg/dL High 8.5-10.2 [facility] Comment on above: Order Comment: Speci men Type: BLOOD SPECIMEN Ordering Facility: [facility] Address: [address] [place] [address] Performed By: #### 2 857-1 #### [facility] CLIA [id number] [address] [place] [address] [place] Chloride [Moles/Vol] 100 mmol/L Normal 98-107 [facility] Comment on above: Order Comment: Speci men Type: BLOOD SPECIMEN Ordering Facility: [facility] Address: [address] [place] [address] Performed By: #### 2 857-1 #### [facility] CLIA [id number] [address] [place] [address] [place] CO2 [Moles/Vol] 26 mmol/L Normal 22-30 [facility] Comment on above: Order Comment: Speci men Type: BLOOD SPECIMEN Ordering Facility: [facility] Address: [address] [place] [address] Performed By: #### 2 857-1 #### [facility] CLIA [id number] [address] [place] [address] [place] Creatinine [Mass/Vol] 0.81 mg/dL Normal 0.73-1.22 [facility] Comment on above: Order Comment: Speci men Type: BLOOD SPECIMEN Ordering Facility: [facility] Address: [address] [place] [address] Performed By: #### 2 857-1 #### [facility] CLIA [id number] [address] [place] [address] [place] Creatinine and Glomerular filtration rate.predicted panel (S/P/Bld) 90 mL/min/1.73m??? Normal >=60 [facility] Comment on above: Order Comment: Speci men Type: BLOOD SPECIMEN Ordering Facility: [facility] Address: [address] [place] [address] Result Comment: Renae mated Glomerular Filtration Rate [...] reflect actual GFR. Performed By: #### 2 857-1 #### [facility] CLIA [id number] [address] [place] [address] [place] Glucose [Mass/Vol] 119 mg/dL High 74-99 [facility] Comment on above: Order Comment: Speci men Type: BLOOD SPECIMEN Ordering Facility: [facility] Address: [address] [place] [address] Result Comment: The [place] Diabetes Association (ADA) provides guidance for cutoff [...] Standards of Medical Care in Diabetes 2016, [place] [employer]. Diabetes Care. 2016.39(Suppl 1). Performed By: #### 2 857-1 #### [facility] CLIA [id number] [address] [place] [address] [place] Potassium [Moles/Vol] 4.8 mmol/L Normal 3.7-5.1 [facility] Comment on above: Order Comment: Nicanor camilo Type: BLOOD SPECIMEN Ordering Facility: [facility] Address: [address] [place] [address] Performed By: #### 2 857-1 #### [facility] CLIA [id number] [address] [place] [address] [place] Protein [Mass/Vol] 6.3 g/dL Normal 6.3-8.0 [facility] Comment on above: Order Comment: Francii men Type: BLOOD SPECIMEN Ordering Facility: [facility] Address: [address] [place] [address] Performed By: #### 2 857-1 #### [facility] CLIA [id number] [address] [place] [address] [place] Sodium [Moles/Vol] 137 mmol/L Normal 136-144 [facility] Comment on above: Order Comment: Speci men Type: BLOOD SPECIMEN Ordering Facility: [facility] Address: [address] [place] [address] Performed By: #### 2 857-1 #### [facility] CLIA [id number] [address] [place] [address] [place] Urea nitrogen [Mass/Vol] 14 mg/dL Normal 9-24 [facility] Comment on above: Order Comment: Speci men Type: BLOOD SPECIMEN Ordering Facility: [facility] Address: [address] [place] [address] Performed By: #### 2 857-1 #### [facility] CLIA [id number] [address] [place] [address] [place] Eosinophils/100 WBC Auto (Bl d)on 08-01-2024 Eosinophils/100 WBC (Bld) Automated eosinophil % [facility] Erythrocyte distribution wid th Auto (RBC) [Ratio]on 08-01-2024 Erythrocyte distribution width (RBC) [Ratio] Erythrocyte distribution width [Ratio] by Automated count 11.5-15.0 [facility] Hematocrit Auto (Bld) [Volum e fraction]on 08-01-2024 Hematocrit (Bld) [Volume fraction] Hematocrit [Volume Fraction] of Blood by Automated count Low 39.0-51.0 [facility] Hemoglobin [Mass/volume] in Bloodon 08-01-2024 Hemoglobin (Bld) [Mass/Vol] Hemoglobin [Mass/volume] in Blood Low 13.0-17.0 [facility] Laboratory - Chemistry and C hemistry - challengeon 08-01-2024 Albumin [Mass/Vol] 4.2 g/dL 3.9-4.9 [facility] ALP [Catalytic activity/Vol] 75 U/L 38-113 [facility] ALT [Catalytic activity/Vol] 17 U/L 10-54 [facility] AST [Catalytic activity/Vol] 17 U/L 14-40 [facility] Bilirubin [Mass/Vol] 0.6 mg/dL 0.2-1.3 [facility] Calcium [Mass/Vol] 10.3 mg/dL High 8.5-10.2 [facility] Chloride [Moles/Vol] 100 mmol/L 98-107 [facility] CO2 [Moles/Vol] 26 mmol/L 22-30 [facility] Creatinine [Mass/Vol] 0.81 mg/dL 0.73-1.22 [facility] Glucose [Mass/Vol] 119 mg/dL High 74-99 [facility] Comment on above: The [place] Diabete s Association (ADA) provides guidance for [...] Standards of Medical Care in Diabetes 2016, [place] [employer]. Diabetes Care. 2016.39(Suppl 1). Potassium [Moles/Vol] 4.8 mmol/L 3.7-5.1 [facility] Sodium [Moles/Vol] 137 mmol/L 136-144 [facility] Urea nitrogen [Mass/Vol] 14 mg/dL 9-24 [facility] - Hematology and Cell countson 08-01-2024 Eosinophils (Bld) [#/Vol] 0.50 10*3/uL High <0.46 [facility] Immature granulocytes (Bld) [#/Vol] 0.04 10*3/uL <0.10 [facility] Immature granulocytes/100 WBC (Bld) 0.7 % [facility] Leukocytes [#/volume] correc jomar for nucleated erythrocytes in Blood by Automated counon 08-01-2024 WBC corrected for nucl RBC Auto (Bld) [#/Vol] Leukocytes [#/volume] corrected for nucleated erythrocytes in Blood by Automated coun 3.70-11.00 [facility] Lymphocytes Auto (Bld) [#/Vo l]on 08-01-2024 Lymphocytes (Bld) [#/Vol] Lymphocytes [#/volume] in Blood by Automated count 1.00-4.00 [facility] Lymphocytes/100 WBC Auto (Bl d)on 08-01-2024 Lymphocytes/100 WBC (Bld) Lymphocytes/100 leukocytes in Blood by Automated count [facility] MCH Auto (RBC) [Entitic mass ]on 08-01-2024 MCH (RBC) [Entitic mass] MCH [Entitic mass] by Automated count 26.0-34.0 [facility] MCHC Auto (RBC) [Mass/Vol]on 08-01-2024 MCHC (RBC) [Mass/Vol] MCHC [Mass/volume] by Automated count 30.5-36.0 [facility] MCV Auto (RBC) [Entitic vol] on 08-01-2024 MCV (RBC) [Entitic vol] MCV [Entitic volume] by Automated count 80.0-100.0 [facility] Monocytes Auto (Bld) [#/Vol] on 08-01-2024 Monocytes (Bld) [#/Vol] Automated blood monocyte count <0.87 [facility] Monocytes/100 WBC Auto (Bld) on 08-01-2024 Monocytes/100 WBC (Bld) Automated monocyte % [facility] Neutrophils Auto (Bld) [#/Vo l]on 08-01-2024 Neutrophils (Bld) [#/Vol] Neutrophils [#/volume] in Blood by Automated count 1.45-7.50 [facility] Neutrophils/100 WBC Auto (Bl d)on 08-01-2024 Neutrophils/100 WBC (Bld) Automated neutrophil % [facility] No Panel Informationon 08-01 Estimated GFR (CKD-EPI) 90 mL/min/1.73m??? >=60 [facility] Comment on above: Estimated Glomerular Filtration [...] GFR. Prostate Specific Antigen 0.19 ng/mL <2.60 [facility] Comment on above: Total PSA test metho dology used is the Electrochemiluminescence Immunoassay by [employer]. Total PSA values by differing methodologies cannot be interchanged. Nucleated RBC Auto (Bld) [#/ Vol]on 08-01-2024 Nucleated RBC (Bld) [#/Vol] Nucleated erythrocytes [#/volume] in Blood by Automated count <0.01 [facility] Nucleated erythrocytes [Pres ence] in Blood by Automated counton 08-01-2024 Nucleated RBC Auto Ql (Bld) Nucleated erythrocytes [Presence] in Blood by Automated count [facility] PROSTATE-SPECIFIC ANTIGEN DI AGNOSTICon 08-01-2024 Prostate specific Ag [Mass/Vol] 0.19 ng/mL NINF - 2.60 ng/mL [facility] Comment on above: Total PSA test metho dology used is the Electrochemiluminescence Immunoassay by [employer]. Total PSA values by differing methodologies cannot be interchanged. PSA SerPl-mCncon 08-01-2024 Prostate specific Ag [Mass/Vol] 0.19 ng/mL Normal <2.60 [facility] Comment on above: Order Comment: Speci men Type: BLOOD SPECIMEN Ordering Facility: [facility] Address: [address] [place] [address] Result Comment: Tota l PSA test methodology used is the Electrochemiluminescence Immunoassay by [employer]. Total PSA values by differing methodologies cannot be interchanged. Performed By: #### 2 857-1 #### [facility] CLIA [id number] [address] [place] [address] [place] Platelet mean volume Auto (B ld) [Entitic vol]on 08-01-2024 Platelet mean volume (Bld) [Entitic vol] Platelet mean volume [Entitic volume] in Blood by Automated count 9.0-12.7 [facility] Platelets Auto (Bld) [#/Vol] on 08-01-2024 Platelets (Bld) [#/Vol] Platelets [#/volume] in Blood by Automated count 150-400 [facility] Prostate specific Ag [Mass/V ol]on 08-01-2024 Interpretation and review of laboratory results Normal [facility] Protein [Mass/volume] in Ser um or Plasmaon 08-01-2024 Protein [Mass/Vol] Protein [Mass/volume ] in Serum or Plasma 6.3-8.0 [facility] RBC Auto (Bld) [#/Vol]on RBC (Bld) [#/Vol] Erythrocytes [#/volu me] in Blood by Automated count Low 4.20-6.00 [facility] Serum or plasma anion gap de terminationon 08-01-2024 Anion gap [Moles/Vol] Serum or plasma anion gap determination 8-15 [facility] CNPNon 07-25-2024 CNPN Telephone (LABSAN) PABLO FELIX ([id number]) 1945 M Date Time Provider Department 07/25/24 MARCO A ESQUEDA During your visit today, we recorded the following information about you: Josemanuel Ortiz 07/25/2024 8:25 AM Signed Patient on lab schedule 08/01/24 for lab only prior to RV. Please review and place needed order. Thank you, Gabi Ortiz MLT Allergies As of Date: 07/25/2024 Noted Allergy Reaction PENICILLINS 08/06/2014 16 - Unknown SIMVASTATIN 07/05/2002 16 - Unknown Date Reviewed: 02/02/2024 Reviewed by: Lynne Alarcon APRN.SALES CORRESPONDENT - Fully Assessed Reason for Visit: Lab Orders [1688] Primary Visit Diagnosis:Malignant neoplasm of prostate (HCC) [C61] Order(s):COMPLETE BLOOD COUNT AND DIFFERENTIAL [SQCBCDIF] Order #: [id number] FUTURE COMPREHENSIVE METABOLIC PANEL [SQCMP] Order #: [id number] FUTURE PROSTATE-SPECIFIC ANTIGEN DIAGNOSTIC [SQPSA] Order #: [id number] FUTURE Prescriptions as of 10/16/2024 - enzalutamide (XTANDI) 40 mg tablet Take 4 tablets (160 mg) by mouth once daily. - Calcium Citrate-Vitamin D3 200 mg-6.25 mcg (250 unit) tab Take 2 tablets by mouth once daily. - metoprolol succinate ER (TOPROL XL) 25 mg 24 hr tablet Take by mouth. - Ysmhxwdnvljwh-Xvubnvke-Iqmb in (MULTIVITAMIN 50 PLUS) tab Take 1 [...] once daily. Problem List As Of Date 07/25/2024 Noted Resolved Malignant neoplasm of prostate (HCC) [C61] 08/06/2014 Encounter Status:Closed by JOSEMANUEL BLANCHARD [facility] (H [facility]) JERICAPABLO An ([id number]) 1945 M Date Time Provider Department 05/09/24 9:15 AM MARCO A ESQUEDA During your visit today, we recorded the following information about you: Temperature Pulse Respiration Blood pressure 97.3 degrees 62/minute 16/minute 141/62 Weight 92.1 kg Marco A Esqueda MD 05/10/2024 7:40 AM Signed PATIENT NAME: Pablo Felix DATE: 05/09/2024 PRIMARY CARE PHYSICIAN: Dr. Jamar Fall OTHER PHYSICIANS: Dr. Anthony Scruggs, Dr. Khan, [facility] Portions of this encounter note have [...] mg 24 hr tablet Take by mouth. 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 Left base margin positive for neoplasm. Seminal vesicles with no diagnostic abnormality. 2 resected lymph nodes negative for neoplasm. LABS: Hemoglobin (g/dL) Date Value 05/03/2024 11.5 05/08/2018 12.8 Hematocrit (%) Date Value 05/03/2024 33.2 05/08/2018 36.8 WBC (k/uL) Date Value 1 (more content not included)... Normal [facility] CBC W Auto Differential pane l (Bld)on 05-03-2024 Basophils (Bld) [#/Vol] 0.03 10*3/uL Normal <0.11 [facility] Comment on above: Order Comment: Speci men Type: BLOOD SPECIMEN Ordering Facility: [facility] Address: [address] [place] [address] Performed By: #### 2 986-8 #### [facility] CLIA [id number] [address] [place] [address] [place] Basophils/100 WBC (Bld) 0.5 % Normal [facility] Comment on above: Order Comment: Speci men Type: BLOOD SPECIMEN Ordering Facility: [facility] Address: [address] [place] [address] Performed By: #### 2 986-8 #### [facility] CLIA [id number] [address] [place] [address] [place] Differential cell count method Nom (Bld) Auto Normal [facility] Comment on above: Order Comment: Speci men Type: BLOOD SPECIMEN Ordering Facility: [facility] Address: [address] [place] [address] Performed By: #### 2 986-8 #### [facility] CLIA [id number] [address] [place] [address] [place] Eosinophils (Bld) [#/Vol] 0.48 10*3/uL High <0.46 [facility] Comment on above: Order Comment: Speci men Type: BLOOD SPECIMEN Ordering Facility: [facility] Address: [address] [place] [address] Performed By: #### 2 986-8 #### [facility] CLIA [id number] [address] [place] [address] [place] Eosinophils/100 WBC (Bld) 8.0 % Normal [facility] Comment on above: Order Comment: Speci men Type: BLOOD SPECIMEN Ordering Facility: [facility] Address: [address] [place] [address] Performed By: #### 2 986-8 #### [facility] CLIA [id number] [address] [place] [address] [place] Erythrocyte distribution width (RBC) [Ratio] 12.6 % Normal 11.5-15.0 [facility] Comment on above: Order Comment: Speci men Type: BLOOD SPECIMEN Ordering Facility: [facility] Address: [address] [place] [address] Performed By: #### 2 986-8 #### [facility] CLIA [id number] [address] [place] [address] [place] Hematocrit (Bld) [Volume fraction] 33.2 % Low 39.0-51.0 [facility] Comment on above: Order Comment: Speci men Type: BLOOD SPECIMEN Ordering Facility: [facility] Address: [address] [place] [address] Performed By: #### 2 986-8 #### [facility] CLIA [id number] [address] [place] [address] [place] Hemoglobin (Bld) [Mass/Vol] 11.5 g/dL Low 13.0-17.0 [facility] Comment on above: Order Comment: Speci men Type: BLOOD SPECIMEN Ordering Facility: [facility] Address: [address] [place] [address] Performed By: #### 2 986-8 #### [facility] CLIA [id number] [address] [place] [address] [place] Immature granulocytes (Bld) [#/Vol] 0.04 10*3/uL Normal <0.10 [facility] Comment on above: Order Comment: Speci men Type: BLOOD SPECIMEN Ordering Facility: [facility] Address: [address] [place] [address] Performed By: #### 2 986-8 #### [facility] CLIA [id number] [address] [place] [address] [place] Immature granulocytes/100 WBC (Bld) 0.7 % Normal [facility] Comment on above: Order Comment: Speci men Type: BLOOD SPECIMEN Ordering Facility: [facility] Address: [address] [place] [address] Performed By: #### 2 986-8 #### [facility] CLIA [id number] [address] [place] [address] [place] Lymphocytes (Bld) [#/Vol] 1.76 10*3/uL Normal 1.00-4.00 [facility] Comment on above: Order Comment: Speci men Type: BLOOD SPECIMEN Ordering Facility: [facility] Address: [address] [place] [address] Performed By: #### 2 986-8 #### [facility] CLIA [id number] [address] [place] [address] [place] Lymphocytes/100 WBC (Bld) 29.4 % Normal [facility] Comment on above: Order Comment: Speci men Type: BLOOD SPECIMEN Ordering Facility: [facility] Address: [address] [place] [address] Performed By: #### 2 986-8 #### [facility] CLIA [id number] [address] [place] [address] [place] MCH (RBC) [Entitic mass] 33.0 pg Normal 26.0-34.0 [facility] Comment on above: Order Comment: Speci men Type: BLOOD SPECIMEN Ordering Facility: [facility] Address: [address] [place] [address] Performed By: #### 2 986-8 #### [facility] CLIA [id number] [address] [place] [address] [place] MCHC (RBC) [Mass/Vol] 34.6 g/dL Normal 30.5-36.0 [facility] Comment on above: Order Comment: Speci men Type: BLOOD SPECIMEN Ordering Facility: [facility] Address: [address] [place] [address] Performed By: #### 2 986-8 #### [facility] CLIA [id number] [address] [place] [address] [place] MCV (RBC) [Entitic vol] 95.1 fL Normal 80.0-100.0 [facility] Comment on above: Order Comment: Speci men Type: BLOOD SPECIMEN Ordering Facility: [facility] Address: [address] [place] [address] Performed By: #### 2 986-8 #### [facility] CLIA [id number] [address] [place] [address] [place] Monocytes (Bld) [#/Vol] 0.48 10*3/uL Normal <0.87 [facility] Comment on above: Order Comment: Speci men Type: BLOOD SPECIMEN Ordering Facility: [facility] Address: [address] [place] [address] Performed By: #### 2 986-8 #### [facility] CLIA [id number] [address] [place] [address] [place] Monocytes/100 WBC (Bld) 8.0 % Normal [facility] Comment on above: Order Comment: Speci men Type: BLOOD SPECIMEN Ordering Facility: [facility] Address: [address] [place] [address] Performed By: #### 2 986-8 #### [facility] CLIA [id number] [address] [place] [address] [place] Neutrophils (Bld) [#/Vol] 3.19 10*3/uL Normal 1.45-7.50 [facility] Comment on above: Order Comment: Speci men Type: BLOOD SPECIMEN Ordering Facility: [facility] Address: [address] [place] [address] Performed By: #### 2 986-8 #### [facility] CLIA [id number] [address] [place] [address] [place] Neutrophils/100 WBC (Bld) 53.4 % Normal [facility] Comment on above: Order Comment: Speci men Type: BLOOD SPECIMEN Ordering Facility: [facility] Address: [address] [place] [address] Performed By: #### 2 986-8 #### [facility] CLIA [id number] [address] [place] [address] [place] Nucleated RBC (Bld) [#/Vol] 10*3/uL Normal <0.01 [facility] Comment on above: Order Comment: Speci men Type: BLOOD SPECIMEN Ordering Facility: [facility] Address: [address] [place] [address] Performed By: #### 2 986-8 #### [facility] CLIA [id number] [address] [place] [address] [place] Nucleated RBC/100 WBC (Bld) [Ratio] 0.0 /100 WBC Normal [facility] Comment on above: Order Comment: Speci men Type: BLOOD SPECIMEN Ordering Facility: [facility] Address: [address] [place] [address] Performed By: #### 2 986-8 #### [facility] CLIA [id number] [address] [place] [address] [place] Platelet mean volume (Bld) [Entitic vol] 9.3 fL Normal 9.0-12.7 [facility] Comment on above: Order Comment: Speci men Type: BLOOD SPECIMEN Ordering Facility: [facility] Address: [address] [place] [address] Performed By: #### 2 986-8 #### [facility] CLIA [id number] [address] [place] [address] [place] Platelets (Bld) [#/Vol] 192 10*3/uL Normal 150-400 [facility] Comment on above: Order Comment: Speci men Type: BLOOD SPECIMEN Ordering Facility: [facility] Address: [address] [place] [address] Performed By: #### 2 986-8 #### [facility] CLIA [id number] [address] [place] [address] [place] RBC (Bld) [#/Vol] 3.49 10*6/uL Low 4.20-6.00 [facility] Comment on above: Order Comment: Speci men Type: BLOOD SPECIMEN Ordering Facility: [facility] Address: [address] [place] [address] Performed By: #### 2 986-8 #### [facility] CLIA [id number] [address] [place] [address] [place] WBC (Bld) [#/Vol] 5.98 10*3/uL Normal 3.70-11.00 [facility] Comment on above: Order Comment: Speci men Type: BLOOD SPECIMEN Ordering Facility: [facility] Address: [address] [place] [address] Performed By: #### 2 986-8 #### [facility] CLIA [id number] [address] [place] [address] [place] Comprehensive metabolic 2000 panelon 05-03-2024 Albumin [Mass/Vol] 3.9 g/dL Normal 3.9-4.9 [facility] Comment on above: Order Comment: Speci men Type: BLOOD SPECIMEN Ordering Facility: [facility] Address: [address] [place] [address] Performed By: #### 2 857-1 #### [facility] CLIA [id number] [address] [place] [address] [place] ALP [Catalytic activity/Vol] 71 U/L Normal 38-113 [facility] Comment on above: Order Comment: Speci men Type: BLOOD SPECIMEN Ordering Facility: [facility] Address: [address] [place] [address] Performed By: #### 2 857-1 #### [facility] CLIA [id number] [address] [place], [place] [address] [place] ALT [Catalytic activity/Vol] 16 U/L Normal 10-54 [facility] Comment on above: Order Comment: Speci men Type: BLOOD SPECIMEN Ordering Facility: [facility] Address: [address] [place] [address] Performed By: #### 2 857-1 #### [facility] CLIA [id number] [address] [place] [address] [place] Anion gap [Moles/Vol] 9 mmol/L Normal 8-15 [facility] Comment on above: Order Comment: Speci men Type: BLOOD SPECIMEN Ordering Facility: [facility] Address: [address] [place] [address] Performed By: #### 2 857-1 #### [facility] CLIA [id number] [address] [place] [address] [place] AST [Catalytic activity/Vol] 17 U/L Normal 14-40 [facility] Comment on above: Order Comment: Speci men Type: BLOOD SPECIMEN Ordering Facility: [facility] Address: [address] [place] [address] Performed By: #### 2 857-1 #### [facility] CLIA [id number] [address] [place] [address] [place] Bilirubin [Mass/Vol] 0.5 mg/dL Normal 0.2-1.3 [facility] Comment on above: Order Comment: Speci men Type: BLOOD SPECIMEN Ordering Facility: [facility] Address: [address] [place], [place] [address] Performed By: #### 2 857-1 #### [facility] CLIA [id number] [address] [place] [address] [place] Calcium [Mass/Vol] 9.5 mg/dL Normal 8.5-10.2 [facility] Comment on above: Order Comment: Speci men Type: BLOOD SPECIMEN Ordering Facility: [facility] Address: [address] [place] [address] Performed By: #### 2 857-1 #### [facility] CLIA [id number] [address] [place] [address] [place] Chloride [Moles/Vol] 104 mmol/L Normal 98-107 [facility] Comment on above: Order Comment: Speci men Type: BLOOD SPECIMEN Ordering Facility: [facility] Address: [address] [place] [address] Performed By: #### 2 857-1 #### [facility] CLIA [id number] [address] [place] [address] [place] CO2 [Moles/Vol] 26 mmol/L Normal 22-30 [facility] Comment on above: Order Comment: Speci men Type: BLOOD SPECIMEN Ordering Facility: [facility] Address: [address] [place] [address] Performed By: #### 2 857-1 #### [facility] CLIA [id number] [address] [place] [address] [place] Creatinine [Mass/Vol] 0.88 mg/dL Normal 0.73-1.22 [facility] Comment on above: Order Comment: Speci men Type: BLOOD SPECIMEN Ordering Facility: [facility] Address: [address] [place] [address] Performed By: #### 2 857-1 #### [facility] CLIA [id number] [address] [place] [address] [place] Creatinine and Glomerular filtration rate.predicted panel (S/P/Bld) 88 mL/min/1.73m??? Normal >=60 [facility] Comment on above: Order Comment: Speci men Type: BLOOD SPECIMEN Ordering Facility: [facility] Address: [address] [place] [address] Result Comment: Renae mated Glomerular Filtration Rate [...] reflect actual GFR. Performed By: #### 2 857-1 #### [facility] CLIA [id number] [address] [place] [address] [place] Glucose [Mass/Vol] 106 mg/dL High 74-99 [facility] Comment on above: Order Comment: Nicanor camilo Type: BLOOD SPECIMEN Ordering Facility: [facility] Address: [address] [place] [address] Result Comment: The [place] [employer] (ADA) provides guidance for cutoff [...] Standards of Medical Care in Diabetes 2016, [place] [employer]. Diabetes Care. 2016.39(Suppl 1). Performed By: #### 2 857-1 #### [facility] CLIA [id number] [address] [place] [address] [place] Potassium [Moles/Vol] 5.6 mmol/L High 3.7-5.1 [facility] Comment on above: Order Comment: Nicanor camilo Type: BLOOD SPECIMEN Ordering Facility: [facility] Address: [address] [place] [address] Performed By: #### 2 857-1 #### [facility] CLIA [id number] [address] [place] [address] [place] Protein [Mass/Vol] 6.3 g/dL Normal 6.3-8.0 [facility] Comment on above: Order Comment: Speci men Type: BLOOD SPECIMEN Ordering Facility: [facility] Address: [address] [place] [address] Performed By: #### 2 857-1 #### [facility] CLIA [id number] [address] [place] [address] [place] Sodium [Moles/Vol] 139 mmol/L Normal 136-144 [facility] Comment on above: Order Comment: Speci men Type: BLOOD SPECIMEN Ordering Facility: [facility] Address: [address] [place] [address] Performed By: #### 2 857-1 #### [facility] CLIA [id number] [address] [place] [address] [place] Urea nitrogen [Mass/Vol] 19 mg/dL Normal 9-24 [facility] Comment on above: Order Comment: Speci men Type: BLOOD SPECIMEN Ordering Facility: [facility] Address: [address] [place] [address] Performed By: #### 2 857-1 #### [facility] CLIA [id number] [address] [place] [address] [place] [facility] Prostate specific Ag [Mass/Vol] 0.18 ng/mL Normal <2.60 [facility] Comment on above: Order Comment: Speci men Type: BLOOD SPECIMEN Ordering Facility: [facility] Address: [address] [place] [address] Result Comment: Tota l PSA test methodology used is the Electrochemiluminescence Immunoassay by [employer]. Total PSA values by differing methodologies cannot be interchanged. Performed By: #### 2 857-1 #### [facility] CLIA [id number] [address] [place] [address] [place] Ambulatory Visit Summaryon 1 [...] mg Tab) ipratropium nasal (ipratropium Nasal 0.06% [place]) metformin (metformin 1000 mg oral tablet) metoprolol [...] Anthony SCRUGGS MD Where: [facility] [address] [address]- You Need to Schedule the Following Appointments Follow Up with Anthony SCRUGGS MD, URL When: Where: [address] [place] [address]- Medications What How Much When Instructions Unchanged [...] concerns Unchanged ipratropium nasal (ipratropium Nasal 0.06% [place]) Contact prescribing physician if questions or concerns [...] Trouble st (more content not included)... Normal [facility] Urology Office/Clinic Noteon 04-19-2024 Urology Office/Clinic [...] Xgeva q3mos. Last seen by [facility] oncology 02/02/24. Plan at that [...] Information KAEL JAMES, Anthony [place], URL [address] [place] [address]- Additional Instructions: 6 mos w/ PSA and possible Lupron barring PSA Patient Education Prostate Cancer I, Olamide Uerña, personally scribed for Dr. Scruggs on 04/19/2024 08:45:45. . Documentation recorded by the Olamide esposito, accurately reflects the services(s) I performed and [...] hydrochlorothiazide-lisinop ril (more content not included)... Normal [facility] Comment on above: Result Comment: Elec tronically Signed By: Anthony SCRUGGS MD\.br\Date and Time Signed: 04/19/24 08:47 EDT\.br\Electronically Co-Signed By: Olamide Ureña.br\Date and Time Co-Signed: 04/19/24 08:45 EDT Office Visiton 03-29-2024 Follow-up visit [id number] Pablo Felix 1945 M Date Provider Department Center 03/29/2024 [facility] Family History Problem Relation Age of Onset Coronary artery disease Father Family Status - Relation Status Age at Father Level of Service:[address] [place] OFFICE/OUTPATIENT ESTABLISHED MOD MDM 30 MIN Normal [facility] CNOVSPon 02-02-2024 CNOVSP Visit (SP) Office (H EMASA) PABLO FELIX ([id number]) 1945 M Date Time Provider Department 02/02/24 11:30 AM LYNNE ALARCON During your visit today, we recorded the following information about you: Temperature Pulse Respiration Blood pressure 97.3 degrees 52/minute 16/minute 137/54 Weight Height 93.7 kg 1.676 m Lynne Alarcon APRN.SALES CORRESPONDENT 02/02/2024 11:37 AM Signed PATIENT NAME: Pablo Felix DATE: February 02, 2024 PRIMARY CARE PHYSICIAN: Dr. Jamar Fall OTHER PHYSICIANS: Dr. Anthony Scruggs, Dr. Khan, [facility] This note was copied from prior [...] mg 24 hr tablet Take by mouth. 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 Left base margin positive for neoplasm. Seminal vesicles with no diagnostic abnormality. 2 resected lymph nodes negative for neoplasm. LABS: Hemoglobin (g/dL) Date [place] (more content not included)... Normal [facility] Basophils Auto (Bld) [#/Vol] on 01-25-2024 Basophils (Bld) [#/Vol] 0.04 10*3/uL <0.11 [facility] Basophils/100 WBC Auto (Bld) on 01-25-2024 Basophils/100 WBC (Bld) 0.6 % [facility] Blood manual differential co mment interpretation narrativeon 01-25-2024 Manual differential comment [place] (Bld) [Interp] Auto [facility] CBC W Auto Differential pane l (Bld)on 01-25-2024 Basophils (Bld) [#/Vol] 0.04 10*3/uL Normal <0.11 [facility] Comment on above: Order Comment: Speci men Type: BLOOD SPECIMEN Ordering Facility: [facility] Address: [address] [place] [address] Performed By: #### 2 857-1 #### [facility] CLIA [id number] [address] [place], [place] [address] [address] [place] Basophils/100 WBC (Bld) 0.6 % Normal [facility] Comment on above: Order Comment: Speci men Type: BLOOD SPECIMEN Ordering Facility: [facility] Address: [address] [place] [address] Performed By: #### 2 857-1 #### [facility] CLIA [id number] [address] [place] [address] [place] Differential cell count method Nom (Bld) Auto Normal [facility] Comment on above: Order Comment: Speci men Type: BLOOD SPECIMEN Ordering Facility: [facility] Address: [address] [place] [address] Performed By: #### 2 857-1 #### [facility] CLIA [id number] [address] [place] [address] [place] Eosinophils (Bld) [#/Vol] 0.40 10*3/uL Normal <0.46 [facility] Comment on above: Order Comment: Speci men Type: BLOOD SPECIMEN Ordering Facility: [facility] Address: [address] [place] [address] Performed By: #### 2 857-1 #### [facility] CLIA [id number] [address] [place] [address] [place] Eosinophils/100 WBC (Bld) 5.9 % Normal [facility] Comment on above: Order Comment: Speci men Type: BLOOD SPECIMEN Ordering Facility: [facility] Address: [address] [place] [address] Performed By: #### 2 857-1 #### [facility] CLIA [id number] [address] [place] [address] [place] Erythrocyte distribution width (RBC) [Ratio] 12.7 % Normal 11.5-15.0 [facility] Comment on above: Order Comment: Speci men Type: BLOOD SPECIMEN Ordering Facility: [facility] Address: [address] [place] [address] Performed By: #### 2 857-1 #### [facility] CLIA [id number] [address] [place] [address] [place] Hematocrit (Bld) [Volume fraction] 34.6 % Low 39.0-51.0 [facility] Comment on above: Order Comment: Speci men Type: BLOOD SPECIMEN Ordering Facility: [facility] Address: [address] [place] [address] Performed By: #### 2 857-1 #### [facility] CLIA [id number] [address] [place] [address] [place] Hemoglobin (Bld) [Mass/Vol] 11.8 g/dL Low 13.0-17.0 [facility] Comment on above: Order Comment: Speci men Type: BLOOD SPECIMEN Ordering Facility: [facility] Address: [address] [place] [address] Performed By: #### 2 857-1 #### [facility] CLIA [id number] [address] [place] [address] [place] Immature granulocytes (Bld) [#/Vol] 0.07 10*3/uL Normal <0.10 [facility] Comment on above: Order Comment: Speci men Type: BLOOD SPECIMEN Ordering Facility: [facility] Address: [address] [place] [address] Performed By: #### 2 857-1 #### [facility] CLIA [id number] [address] [place] [address] [place] Immature granulocytes/100 WBC (Bld) 1.0 % Normal [facility] Comment on above: Order Comment: Speci men Type: BLOOD SPECIMEN Ordering Facility: [facility] Address: [address] [place] [address] Performed By: #### 2 857-1 #### [facility] CLIA [id number] [address] [place] [address] [place] Lymphocytes (Bld) [#/Vol] 2.16 10*3/uL Normal 1.00-4.00 [facility] Comment on above: Order Comment: Speci men Type: BLOOD SPECIMEN Ordering Facility: [facility] Address: [address] [place] [address] Performed By: #### 2 857-1 #### [facility] CLIA [id number] [address] [place] [address] [place] Lymphocytes/100 WBC (Bld) 31.8 % Normal [facility] Comment on above: Order Comment: Speci men Type: BLOOD SPECIMEN Ordering Facility: [facility] Address: [address] [place] [address] Performed By: #### 2 857-1 #### [facility] CLIA [id number] [address] [place] [address] [place] MCH (RBC) [Entitic mass] 32.2 pg Normal 26.0-34.0 [facility] Comment on above: Order Comment: Speci men Type: BLOOD SPECIMEN Ordering Facility: [facility] Address: [address] [place] [address] Performed By: #### 2 857-1 #### [facility] CLIA [id number] [address] [place] [address] [place] MCHC (RBC) [Mass/Vol] 34.1 g/dL Normal 30.5-36.0 [facility] Comment on above: Order Comment: Speci men Type: BLOOD SPECIMEN Ordering Facility: [facility] Address: [address] [place] [address] Performed By: #### 2 857-1 #### [facility] CLIA [id number] [address] [place] [address] [place] MCV (RBC) [Entitic vol] 94.3 fL Normal 80.0-100.0 [facility] Comment on above: Order Comment: Speci men Type: BLOOD SPECIMEN Ordering Facility: [facility] Address: [address] [place] [address] Performed By: #### 2 857-1 #### [facility] CLIA [id number] [address] [place] [address] [place] Monocytes (Bld) [#/Vol] 0.60 10*3/uL Normal <0.87 [facility] Comment on above: Order Comment: Speci men Type: BLOOD SPECIMEN Ordering Facility: [facility] Address: [address] [place] [address] Performed By: #### 2 857-1 #### [facility] CLIA [id number] [address] [place] [address] [place] Monocytes/100 WBC (Bld) 8.8 % Normal [facility] Comment on above: Order Comment: Speci men Type: BLOOD SPECIMEN Ordering Facility: [facility] Address: [address] [place] [address] Performed By: #### 2 857-1 #### [facility] CLIA [id number] [address] [place] [address] [place] Neutrophils (Bld) [#/Vol] 3.53 10*3/uL Normal 1.45-7.50 [facility] Comment on above: Order Comment: Speci men Type: BLOOD SPECIMEN Ordering Facility: [facility] Address: [address] [place] [address] Performed By: #### 2 857-1 #### [facility] CLIA [id number] [address] [place] [address] [place] Neutrophils/100 WBC (Bld) 51.9 % Normal [facility] Comment on above: Order Comment: Speci men Type: BLOOD SPECIMEN Ordering Facility: [facility] Address: [address] [place] [address] Performed By: #### 2 857-1 #### [facility] CLIA [id number] [address] [place] [address] [place] Nucleated RBC (Bld) [#/Vol] 10*3/uL Normal <0.01 [facility] Comment on above: Order Comment: Speci men Type: BLOOD SPECIMEN Ordering Facility: [facility] Address: [address] [place] [address] Performed By: #### 2 857-1 #### [facility] CLIA [id number] [address] [place] [address] [place] Nucleated RBC/100 WBC (Bld) [Ratio] 0.0 /100 WBC Normal [facility] Comment on above: Order Comment: Speci men Type: BLOOD SPECIMEN Ordering Facility: [facility] Address: [address] [place] [address] Performed By: #### 2 857-1 #### [facility] CLIA [id number] [address] [place] [address] [place] Platelet mean volume (Bld) [Entitic vol] 10.3 fL Normal 9.0-12.7 [facility] Comment on above: Order Comment: Speci men Type: BLOOD SPECIMEN Ordering Facility: [facility] Address: [address] [place] [address] Performed By: #### 2 857-1 #### [facility] CLIA [id number] [address] [place] [address] [place] Platelets (Bld) [#/Vol] 184 10*3/uL Normal 150-400 [facility] Comment on above: Order Comment: Speci men Type: BLOOD SPECIMEN Ordering Facility: [facility] Address: [address] [place] [address] Performed By: #### 2 857-1 #### [facility] CLIA [id number] [address] [place] [address] [place] RBC (Bld) [#/Vol] 3.67 10*6/uL Low 4.20-6.00 [facility] Comment on above: Order Comment: Speci men Type: BLOOD SPECIMEN Ordering Facility: [facility] Address: [address] [place] [address] Performed By: #### 2 857-1 #### [facility] CLIA [id number] [address] [place] [address] [place] WBC (Bld) [#/Vol] 6.80 10*3/uL Normal 3.70-11.00 [facility] Comment on above: Order Comment: Speci men Type: BLOOD SPECIMEN Ordering Facility: [facility] Address: [address] [place] [address] Performed By: #### 2 857-1 #### [facility] CLIA [id number] [address] [place] [address] [place] Comprehensive metabolic 2000 panelon 01-25-2024 Albumin [Mass/Vol] 4.0 g/dL Normal 3.9-4.9 [facility] Comment on above: Order Comment: Speci men Type: BLOOD SPECIMEN Ordering Facility: [facility] Address: [address] [place] [address] Performed By: #### 2 857-1 #### [facility] CLIA [id number] [address] [place] [address] [place] ALP [Catalytic activity/Vol] 74 U/L Normal 38-113 [facility] Comment on above: Order Comment: Speci men Type: BLOOD SPECIMEN Ordering Facility: [facility] Address: [address] [place] [address] Performed By: #### 2 857-1 #### [facility] CLIA [id number] [address] [place] [address] [place] ALT [Catalytic activity/Vol] 18 U/L Normal 10-54 [facility] Comment on above: Order Comment: Speci men Type: BLOOD SPECIMEN Ordering Facility: [facility] Address: [address] [place] [address] Performed By: #### 2 857-1 #### [facility] CLIA [id number] [address] [place] [address] [place] Anion gap [Moles/Vol] 9 mmol/L Normal 8-15 [facility] Comment on above: Order Comment: Speci men Type: BLOOD SPECIMEN Ordering Facility: [facility] Address: [address] [place] [address] Performed By: #### 2 857-1 #### [facility] CLIA [id number] [address] [place] [address] [place] AST [Catalytic activity/Vol] 19 U/L Normal 14-40 [facility] Comment on above: Order Comment: Speci men Type: BLOOD SPECIMEN Ordering Facility: [facility] Address: [address] [place] [address] Performed By: #### 2 857-1 #### [facility] CLIA [id number] [address] [place] [address] [place] Bilirubin [Mass/Vol] 0.7 mg/dL Normal 0.2-1.3 [facility] Comment on above: Order Comment: Speci men Type: BLOOD SPECIMEN Ordering Facility: [facility] Address: [address] [place] [address] Performed By: #### 2 857-1 #### [facility] CLIA [id number] [address] [place] [address] [place] Calcium [Mass/Vol] 9.9 mg/dL Normal 8.5-10.2 [facility] Comment on above: Order Comment: Speci men Type: BLOOD SPECIMEN Ordering Facility: [facility] Address: [address] [place] [address] Performed By: #### 2 857-1 #### [facility] CLIA [id number] [address] [place] [address] [place] Chloride [Moles/Vol] 103 mmol/L Normal 98-107 [facility] Comment on above: Order Comment: Speci men Type: BLOOD SPECIMEN Ordering Facility: [facility] Address: [address] [place] [address] Performed By: #### 2 857-1 #### [facility] CLIA [id number] [address] [place] [address] [place] CO2 [Moles/Vol] 25 mmol/L Normal 22-30 [facility] Comment on above: Order Comment: Speci men Type: BLOOD SPECIMEN Ordering Facility: [facility] Address: [address] [place] [address] Performed By: #### 2 857-1 #### [facility] CLIA [id number] [address] [place] [address] [place] Creatinine [Mass/Vol] 0.79 mg/dL Normal 0.73-1.22 [facility] Comment on above: Order Comment: Speci men Type: BLOOD SPECIMEN Ordering Facility: [facility] Address: [address] [place] [address] Performed By: #### 2 857-1 #### [facility] CLIA [id number] [address] [place] [address] [place] Creatinine and Glomerular filtration rate.predicted panel (S/P/Bld) 91 mL/min/1.73m??? Normal >=60 [facility] Comment on above: Order Comment: Speci men Type: BLOOD SPECIMEN Ordering Facility: [facility] Address: [address] [place] [address] Result Comment: Renae mated Glomerular Filtration Rate [...] reflect actual GFR. Performed By: #### 2 857-1 #### [facility] CLIA [id number] [address] [place] [address] [place] Glucose [Mass/Vol] 112 mg/dL High 74-99 [facility] Comment on above: Order Comment: Speci men Type: BLOOD SPECIMEN Ordering Facility: [facility] Address: [address] [place] [address] Result Comment: The [place] Diabetes Association (ADA) provides guidance for cutoff [...] Standards of Medical Care in Diabetes 2016, [place] [employer]. Diabetes Care. 2016.39(Suppl 1). Performed By: #### 2 857-1 #### [facility] CLIA [id number] [address] [place] [address] [place] Potassium [Moles/Vol] 5.2 mmol/L High 3.7-5.1 [facility] Comment on above: Order Comment: Speci men Type: BLOOD SPECIMEN Ordering Facility: [facility] Address: [address] [place] [address] Performed By: #### 2 857-1 #### [facility] CLIA [id number] [address] [place] [address] [place] Protein [Mass/Vol] 6.6 g/dL Normal 6.3-8.0 [facility] Comment on above: Order Comment: Speci men Type: BLOOD SPECIMEN Ordering Facility: [facility] Address: [address] [place] [address] Performed By: #### 2 857-1 #### [facility] CLIA [id number] [address] [place] [address] [place] Sodium [Moles/Vol] 137 mmol/L Normal 136-144 [facility] Comment on above: Order Comment: Speci men Type: BLOOD SPECIMEN Ordering Facility: [facility] Address: [address] [place] [address] Performed By: #### 2 857-1 #### [facility] CLIA [id number] [address] [place] [address] [place] Urea nitrogen [Mass/Vol] 15 mg/dL Normal 9-24 [facility] Comment on above: Order Comment: Speci men Type: BLOOD SPECIMEN Ordering Facility: [facility] Address: [address] [place] [address] Performed By: #### 2 857-1 #### [facility] CLIA [id number] [address] [place] [address] [place] Eosinophils/100 WBC Auto (Bl d)on 01-25-2024 Eosinophils/100 WBC (Bld) 5.9 % [facility] Erythrocyte distribution wid th Auto (RBC) [Ratio]on 01-25-2024 Erythrocyte distribution width (RBC) [Ratio] 12.7 % 11.5-15.0 [facility] Hematocrit Auto (Bld) [Volum e fraction]on 01-25-2024 Hematocrit (Bld) [Volume fraction] 34.6 % Low 39.0-51.0 [facility] Hemoglobin [Mass/volume] in Bloodon 01-25-2024 Hemoglobin (Bld) [Mass/Vol] 11.8 g/dL Low 13.0-17.0 [facility] - Chemistry and C hemistry - challengeon 01-25-2024 Albumin [Mass/Vol] 4.0 g/dL 3.9-4.9 [facility] ALP [Catalytic activity/Vol] 74 U/L 38-113 [facility] ALT [Catalytic activity/Vol] 18 U/L 10-54 [facility] AST [Catalytic activity/Vol] 19 U/L 14-40 [facility] Bilirubin [Mass/Vol] 0.7 mg/dL 0.2-1.3 [facility] Calcium [Mass/Vol] 9.9 mg/dL 8.5-10.2 [facility] Chloride [Moles/Vol] 103 mmol/L 98-107 [facility] CO2 [Moles/Vol] 25 mmol/L 22-30 [facility] Creatinine [Mass/Vol] 0.79 mg/dL 0.73-1.22 [facility] Glucose [Mass/Vol] 112 mg/dL High 74-99 [facility] Comment on above: The [place] Diabete s Association (ADA) provides guidance for [...] Standards of Medical Care in Diabetes 2016, [place] Diabetes [employer]. Diabetes Care. 2016.39(Suppl 1). Potassium [Moles/Vol] 5.2 mmol/L High 3.7-5.1 [facility] Sodium [Moles/Vol] 137 mmol/L 136-144 [facility] Urea nitrogen [Mass/Vol] 15 mg/dL 9- [facility] - Hematology and Cell countson 01-25-2024 Eosinophils (Bld) [#/Vol] 0.40 10*3/uL <0.46 [facility] Immature granulocytes (Bld) [#/Vol] 0.07 10*3/uL <0.10 [facility] Immature granulocytes/100 WBC (Bld) 1.0 % [facility] Leukocytes [#/volume] correc jomar for nucleated erythrocytes in Blood by Automated counon 01-25-2024 WBC corrected for nucl RBC Auto (Bld) [#/Vol] 6.80 k/uL 3.70-11.00 [facility] Lymphocytes Auto (Bld) [#/Vo l]on 01-25-2024 Lymphocytes (Bld) [#/Vol] 2.16 10*3/uL 1.00-4.00 [facility] Lymphocytes/100 WBC Auto (Bl d)on 01-25-2024 Lymphocytes/100 WBC (Bld) 31.8 % [facility] MCH Auto (RBC) [Entitic mass ]on 01-25-2024 MCH (RBC) [Entitic mass] 32.2 pg 26.0-34.0 [facility] MCHC Auto (RBC) [Mass/Vol]on 01-25-2024 MCHC (RBC) [Mass/Vol] 34.1 g/dL 30.5-36.0 [facility] MCV Auto (RBC) [Entitic vol] on 01-25-2024 MCV (RBC) [Entitic vol] 94.3 fL 80.0-100.0 [facility] Monocytes Auto (Bld) [#/Vol] on 01-25-2024 Monocytes (Bld) [#/Vol] 0.60 10*3/uL <0.87 [facility] Monocytes/100 WBC Auto (Bld) on 01-25-2024 Monocytes/100 WBC (Bld) 8.8 % [facility] Neutrophils Auto (Bld) [#/Vo l]on 01-25-2024 Neutrophils (Bld) [#/Vol] 3.53 10*3/uL 1.45-7.50 [facility] Neutrophils/100 WBC Auto (Bl d)on 01-25-2024 Neutrophils/100 WBC (Bld) 51.9 % [facility] No Panel Informationon 01-24 Estimated GFR (CKD-EPI) 91 mL/min/1.73m??? >=60 [facility] Comment on above: Estimated Glomerular Filtration [...] GFR. Prostate Specific Antigen 0.15 ng/mL <2.60 [facility] Comment on above: Total PSA test metho dology used is the Electrochemiluminescence Immunoassay by [employer]. Total PSA values by differing methodologies cannot be interchanged. Nucleated RBC Auto (Bld) [#/ Vol]on 01-25-2024 Nucleated RBC (Bld) [#/Vol] 10*3/uL <0.01 [facility] Nucleated erythrocytes [Pres ence] in Blood by Automated counton 01-25-2024 Nucleated RBC Auto Ql (Bld) 0.0 /100{WBC} [facility] PSA SerPl-mCncon 01-25-2024 Prostate specific Ag [Mass/Vol] 0.15 ng/mL Normal <2.60 [facility] Comment on above: Order Comment: Speci men Type: BLOOD SPECIMEN Ordering Facility: [facility] Address: [address] [place] [address] Result Comment: Tota l PSA test methodology used is the Electrochemiluminescence Immunoassay by [employer]. Total PSA values by differing methodologies cannot be interchanged. Performed By: #### 2 986-8 #### [facility] CLIA [id number] [address] [place] [address] [place] [address] [place] Platelet mean volume Auto (B ld) [Entitic vol]on 01-25-2024 Platelet mean volume (Bld) [Entitic vol] 10.3 fL 9.0-12.7 [facility] Platelets Auto (Bld) [#/Vol] on 01-25-2024 Platelets (Bld) [#/Vol] 184 10*3/uL 150-400 [facility] Protein [Mass/volume] in Ser um or Plasmaon 01-25-2024 Protein [Mass/Vol] 6.6 g/dL 6.3-8.0 [facility] RBC Auto (Bld) [#/Vol]on RBC (Bld) [#/Vol] 3.67 10*6/uL Low 4.20-6.00 [facility] Serum or plasma anion gap de terminationon 01-25-2024 Anion gap [Moles/Vol] 9 mmol/L 8-15 [facility] Consultation Noteon 11-07-19 24 Consultation Note [id number] Beulah [facility] CNOVSPon 11-02-2023 CNOVSP Visit (SP) Office (H EMASA) PABLO FELIX ([id number]) 1945 M Date Time Provider Department 11/02/23 9:30 AM CHRISTO HOWARD During your visit today, we recorded the following information about you: Temperature Pulse Respiration Blood pressure 97.8 degrees 56/minute 16/minute 123/44 Weight Height 92.9 kg 1.676 m Christo Howard APRN.SALES CORRESPONDENT 11/03/2023 11:11 AM Signed PATIENT NAME: Pbalo Felix DATE: 11/02/2023 PRIMARY CARE PHYSICIAN: Dr. Jamar Fall OTHER PHYSICIANS: Dr. Anthony Scruggs, Dr. Khan, [facility] Portions of this encounter note have [...] mg 24 hr tablet Take by mouth. 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 Left base margin positive for neoplasm. Seminal vesicles with no diagnostic abnormality. 2 resected lymph nodes negative for neoplasm. LABS: Hem (more content not included)... Normal [facility] Basophils Auto (Bld) [#/Vol] on 10-30-2023 Basophils (Bld) [#/Vol] 0.04 10*3/uL <0.11 [facility] Basophils/100 WBC Auto (Bld) on 10-30-2023 Basophils/100 WBC (Bld) 0.5 % [facility] Blood manual differential co mment interpretation narrativeon 10-30-2023 Manual differential comment [place] (Bld) [Interp] Auto [facility] CBC W Auto Differential pane l (Bld)on 10-30-2023 Basophils (Bld) [#/Vol] 0.04 10*3/uL Normal <0.11 [facility] Comment on above: Order Comment: Speci men Type: BLOOD SPECIMEN Ordering Facility: [facility] Address: [address] [place] [address] Performed By: #### 5 7021-8 #### [facility] CLIA [id number] [address] [place] [address] Basophils/100 WBC (Bld) 0.5 % Normal [facility] Comment on above: Order Comment: Speci men Type: BLOOD SPECIMEN Ordering Facility: [facility] Address: [address] [place] [address] Performed By: #### 5 7021-8 #### [facility] CLIA [id number] [address] [place] [address] Differential cell count method Nom (Bld) Auto Normal [facility] Comment on above: Order Comment: Speci men Type: BLOOD SPECIMEN Ordering Facility: [facility] Address: [address] [place] [address] Performed By: #### 5 7021-8 #### [facility] CLIA [id number] [address] [place] [address] Eosinophils (Bld) [#/Vol] 0.35 10*3/uL Normal <0.46 [facility] Comment on above: Order Comment: Speci men Type: BLOOD SPECIMEN Ordering Facility: [facility] Address: [address] [place] [address] Performed By: #### 5 7021-8 #### [facility] CLIA [id number] [address] [place] [address] Eosinophils/100 WBC (Bld) 4.3 % Normal [facility] Comment on above: Order Comment: Speci men Type: BLOOD SPECIMEN Ordering Facility: [facility] Address: [address] [place] [address] Performed By: #### 5 7021-8 #### [facility] CLIA [id number] [address] [place] [address] Erythrocyte distribution width (RBC) [Ratio] 12.8 % Normal 11.5-15.0 [facility] Comment on above: Order Comment: Speci men Type: BLOOD SPECIMEN Ordering Facility: [facility] Address: [address] [place] [address] Performed By: #### 5 7021-8 #### [facility] CLIA [id number] [address] [place] [address] Hematocrit (Bld) [Volume fraction] 35.8 % Low 39.0-51.0 [facility] Comment on above: Order Comment: Speci men Type: BLOOD SPECIMEN Ordering Facility: [facility] Address: [address] [place] [address] Performed By: #### 5 7021-8 #### [facility] CLIA [id number] [address] [place] [address]35 Hemoglobin (Bld) [Mass/Vol] 12.2 g/dL Low 13.0-17.0 [facility] Comment on above: Order Comment: Speci men Type: BLOOD SPECIMEN Ordering Facility: [facility] Address: [facility] [place] [address] Performed By: #### 5 7021-8 #### [facility] CLIA [id number] [address] [place] [address]15 Immature granulocytes (Bld) [#/Vol] 0.04 10*3/uL Normal <0.10 [facility] Comment on above: Order Comment: Speci men Type: BLOOD SPECIMEN Ordering Facility: [facility] Address: [address] [place] [address] Performed By: #### 5 7021-8 #### [facility] CLIA [id number] [address] [place] [address] 22406 Immature granulocytes/100 WBC (Bld) 0.5 % Normal [facility] Comment on above: Order Comment: Speci men Type: BLOOD SPECIMEN Ordering Facility: [facility] Address: [address] [place] [address] Performed By: #### 5 7021-8 #### [facility] CLIA [id number] [address] [place] [address]401 Lymphocytes (Bld) [#/Vol] 1.36 10*3/uL Normal 1.00-4.00 [facility] Comment on above: Order Comment: Speci men Type: BLOOD SPECIMEN Ordering Facility: [facility] Address: [address] [place] [address] Performed By: #### 5 7021-8 #### [facility] CLIA [id number] [address] [place] [address]642 Lymphocytes/100 WBC (Bld) 16.6 % Normal [facility] Comment on above: Order Comment: Speci men Type: BLOOD SPECIMEN Ordering Facility: [facility] Address: [address] [place] [address] Performed By: #### 5 7021-8 #### [facility] CLIA [id number] [address] [place] [address] MCH (RBC) [Entitic mass] 31.3 pg Normal 26.0-34.0 [facility] Comment on above: Order Comment: Speci men Type: BLOOD SPECIMEN Ordering Facility: [facility] Address: [address] [place] [address] Performed By: #### 5 7021-8 #### [facility] CLIA [id number] [address] [place] [address]13 MCHC (RBC) [Mass/Vol] 34.1 g/dL Normal 30.5-36.0 [facility] Comment on above: Order Comment: Speci men Type: BLOOD SPECIMEN Ordering Facility: [facility] Address: [address] [place] [address] Performed By: #### 5 7021-8 #### [facility] CLIA [id number] [address] [place] [address]286 MCV (RBC) [Entitic vol] 91.8 fL Normal 80.0-100.0 [facility] Comment on above: Order Comment: Speci men Type: BLOOD SPECIMEN Ordering Facility: [facility] Address: [address] [place] [address] Performed By: #### 5 7021-8 #### [facility] CLIA [id number] [address] [place] [address] 6[address]80 Monocytes (Bld) [#/Vol] 0.62 10*3/uL Normal <0.87 [facility] Comment on above: Order Comment: Speci men Type: BLOOD SPECIMEN Ordering Facility: [facility] Address: [address] [place] [address] Performed By: #### 5 7021-8 #### [facility] CLIA [id number] [address] [place] [address] 20488 Monocytes/100 WBC (Bld) 7.6 % Normal [facility] Comment on above: Order Comment: Speci men Type: BLOOD SPECIMEN Ordering Facility: [facility] Address: [address] [place] [address] Performed By: #### 5 7021-8 #### [facility] CLIA [id number] [address] [place] [address] 83270 Neutrophils (Bld) [#/Vol] 5.78 10*3/uL Normal 1.45-7.50 [facility] Comment on above: Order Comment: Speci men Type: BLOOD SPECIMEN Ordering Facility: [facility] Address: [address] [place] [address] Performed By: #### 5 7021-8 #### [facility] CLIA [id number] [address] [place] [address] 83743 Neutrophils/100 WBC (Bld) 70.5 % Normal [facility] Comment on above: Order Comment: Speci men Type: BLOOD SPECIMEN Ordering Facility: [facility] Address: [address] [place] [address] Performed By: #### 5 7021-8 #### [facility] CLIA [id number] [address] [place] [address] 52400 Nucleated RBC (Bld) [#/Vol] 10*3/uL Normal <0.01 [facility] Comment on above: Order Comment: Speci men Type: BLOOD SPECIMEN Ordering Facility: [facility] Address: [address] [place] [address] Performed By: #### 5 7021-8 #### [facility] CLIA [id number] [address] [place] [address] 01393 Nucleated RBC/100 WBC (Bld) [Ratio] 0.0 /100 WBC Normal [facility] Comment on above: Order Comment: Speci men Type: BLOOD SPECIMEN Ordering Facility: [facility] Address: [address] [place] [address] Performed By: #### 5 7021-8 #### [facility] CLIA [id number] [address] [place] [address] 28887 Platelet mean volume (Bld) [Entitic vol] 9.5 fL Normal 9.0-12.7 [facility] Comment on above: Order Comment: Speci men Type: BLOOD SPECIMEN Ordering Facility: [facility] Address: [address] [place] [address] Performed By: #### 5 7021-8 #### [facility] CLIA [id number] [address] [place] [address] Platelets (Bld) [#/Vol] 192 10*3/uL Normal 150-400 [facility] Comment on above: Order Comment: Speci men Type: BLOOD SPECIMEN Ordering Facility: [facility] Address: [address] [place] [address] Performed By: #### 5 7021-8 #### [facility] CLIA [id number] [address] [place] [address] 73970 RBC (Bld) [#/Vol] 3.90 10*6/uL Low 4.20-6.00 [facility] Comment on above: Order Comment: Speci men Type: BLOOD SPECIMEN Ordering Facility: [facility] Address: [address] [place] [address] Performed By: #### 5 7021-8 #### [facility] CLIA [id number] [address] [place] [address] 44542 WBC (Bld) [#/Vol] 8.19 10*3/uL Normal 3.70-11.00 [facility] Comment on above: Order Comment: Speci men Type: BLOOD SPECIMEN Ordering Facility: [facility] Address: [address] [place] [address] Performed By: #### 5 7021-8 #### [facility] CLIA [id number] [address] [place] [address]259 Comprehensive metabolic 2000 panelon 10-30-2023 Albumin [Mass/Vol] 4.1 g/dL Normal 3.9-4.9 [facility] Comment on above: Order Comment: Speci men Type: BLOOD SPECIMEN Ordering Facility: [facility] Address: [address] [place] [address] Performed By: #### 2 857-1 #### [facility] CLIA [id number] [address] [place] [address] [place] ALP [Catalytic activity/Vol] 75 U/L Normal 38-113 [facility] Comment on above: Order Comment: Speci men Type: BLOOD SPECIMEN Ordering Facility: [facility] Address: [address] [place] [address] Performed By: #### 2 857-1 #### [facility] CLIA [id number] [address] [place] [address] [place] ALT [Catalytic activity/Vol] 16 U/L Normal 10-54 [facility] Comment on above: Order Comment: Speci men Type: BLOOD SPECIMEN Ordering Facility: [facility] Address: [address] [place] [address] Performed By: #### 2 857-1 #### [facility] CLIA [id number] [address] [place] [address] [place] Anion gap [Moles/Vol] 13 mmol/L Normal 9-18 [facility] Comment on above: Order Comment: Speci men Type: BLOOD SPECIMEN Ordering Facility: [facility] Address: [address] [place] [address] Performed By: #### 2 857-1 #### [facility] CLIA [id number] [address] [place] [address] [place] AST [Catalytic activity/Vol] 16 U/L Normal 14-40 [facility] Comment on above: Order Comment: Speci men Type: BLOOD SPECIMEN Ordering Facility: [facility] Address: [address] [place] [address] Performed By: #### 2 857-1 #### [facility] CLIA [id number] [address] [place] [address] [place] Bilirubin [Mass/Vol] 0.7 mg/dL Normal 0.2-1.3 [facility] Comment on above: Order Comment: Speci men Type: BLOOD SPECIMEN Ordering Facility: [facility] Address: [address] [place], [place] [address] Performed By: #### 2 857-1 #### [facility] CLIA [id number] [address] [place] [address] [place] Calcium [Mass/Vol] 9.8 mg/dL Normal 8.5-10.2 [facility] Comment on above: Order Comment: Speci men Type: BLOOD SPECIMEN Ordering Facility: [facility] Address: [address] [place] [address] Performed By: #### 2 857-1 #### [facility] CLIA [id number] [address] [place] [address] [place] Chloride [Moles/Vol] 103 mmol/L Normal 97-105 [facility] Comment on above: Order Comment: Speci men Type: BLOOD SPECIMEN Ordering Facility: [facility] Address: [address] [place] [address] Performed By: #### 2 857-1 #### [facility] CLIA [id number] [address] [place] [address] [place] CO2 [Moles/Vol] 24 mmol/L Normal 22-30 [facility] Comment on above: Order Comment: Speci men Type: BLOOD SPECIMEN Ordering Facility: [facility] Address: [address] [place] [address] Performed By: #### 2 857-1 #### [facility] CLIA [id number] [address] [place] [address] [place] Creatinine [Mass/Vol] 0.88 mg/dL Normal 0.73-1.22 [facility] Comment on above: Order Comment: Speci men Type: BLOOD SPECIMEN Ordering Facility: [facility] Address: [address] [place], [place] [address] Performed By: #### 2 857-1 #### [facility] CLIA [id number] [address] [place] [address] [place] Creatinine and Glomerular filtration rate.predicted panel (S/P/Bld) 89 mL/min/1.73m??? Normal >=60 [facility] Comment on above: Order Comment: Nicanor camilo Type: BLOOD SPECIMEN Ordering Facility: [facility] Address: [address] [place] [address] Result Comment: Renae mated Glomerular Filtration Rate [...] reflect actual GFR. Performed By: #### 2 857-1 #### [facility] CLIA [id number] [address] [place] [address] [place] Glucose [Mass/Vol] 128 mg/dL High 74-99 [facility] Comment on above: Order Comment: Nicanor camilo Type: BLOOD SPECIMEN Ordering Facility: [facility] Address: [address] [place] [address] Result Comment: The [place] [employer] (ADA) provides guidance for cutoff [...] Standards of Medical Care in Diabetes 2016, [place] [employer]. Diabetes Care. 2016.39(Suppl 1). Performed By: #### 2 857-1 #### [facility] CLIA [id number] [address] [place] [address] [place] Potassium [Moles/Vol] 4.8 mmol/L Normal 3.7-5.1 [facility] Comment on above: Order Comment: Speci men Type: BLOOD SPECIMEN Ordering Facility: [facility] Address: [address] [place] [address] Performed By: #### 2 857-1 #### [facility] CLIA [id number] [address] [place] [address] [place] Protein [Mass/Vol] 6.5 g/dL Normal 6.3-8.0 [facility] Comment on above: Order Comment: Speci men Type: BLOOD SPECIMEN Ordering Facility: [facility] Address: [address] [place] [address] Performed By: #### 2 857-1 #### [facility] CLIA [id number] [address] [place] [address] [place] Sodium [Moles/Vol] 140 mmol/L Normal 136-144 [facility] Comment on above: Order Comment: Speci men Type: BLOOD SPECIMEN Ordering Facility: [facility] Address: [address] [place] [address] Performed By: #### 2 857-1 #### [facility] CLIA [id number] [address] [place] [address] [place] Urea nitrogen [Mass/Vol] 18 mg/dL Normal 9-24 [facility] Comment on above: Order Comment: Speci men Type: BLOOD SPECIMEN Ordering Facility: [facility] Address: [address] [place] [address] Performed By: #### 2 857-1 #### [facility] CLIA [id number] [address] [place] [address] [place] Eosinophils/100 WBC Auto (Bl d)on 10-30-2023 Eosinophils/100 WBC (Bld) 4.3 % [facility] Erythrocyte distribution wid th Auto (RBC) [Ratio]on 10-30-2023 Erythrocyte distribution width (RBC) [Ratio] 12.8 % 11.5-15.0 [facility] Hematocrit Auto (Bld) [Volum e fraction]on 10-30-2023 Hematocrit (Bld) [Volume fraction] 35.8 % 39.0-51.0 [facility] Hemoglobin [Mass/volume] in Bloodon 10-30-2023 Hemoglobin (Bld) [Mass/Vol] 12.2 g/dL 13.0-17.0 [facility] - Chemistry and C hemistry - challengeon 10-30-2023 Albumin [Mass/Vol] 4.1 g/dL 3.9-4.9 [facility] ALP [Catalytic activity/Vol] 75 U/L 38-113 [facility] ALT [Catalytic activity/Vol] 16 U/L 10-54 [facility] AST [Catalytic activity/Vol] 16 U/L 14-40 [facility] Bilirubin [Mass/Vol] 0.7 mg/dL 0.2-1.3 [facility] Calcium [Mass/Vol] 9.8 mg/dL 8.5-10.2 [facility] Chloride [Moles/Vol] 103 mmol/L 97-105 [facility] CO2 [Moles/Vol] 24 mmol/L 22-30 [facility] Creatinine [Mass/Vol] 0.88 mg/dL 0.73-1.22 [facility] Glucose [Mass/Vol] 128 mg/dL 74-99 [facility] Comment on above: The [place] Diab[employer] s Association (ADA) provides guidance for [...] Standards of Medical Care in Diabetes 2016, [place] [employer] Association. Diabetes Care. 2016.39(Suppl 1). Potassium [Moles/Vol] 4.8 mmol/L 3.7-5.1 [facility] Sodium [Moles/Vol] 140 mmol/L 136-144 [facility] Urea nitrogen [Mass/Vol] 18 mg/dL 9-24 [facility] Laboratory - Hematology and Cell countson 10-30-2023 Eosinophils (Bld) [#/Vol] 0.35 10*3/uL <0.46 [facility] Immature granulocytes (Bld) [#/Vol] 0.04 10*3/uL <0.10 [facility] Immature granulocytes/100 WBC (Bld) 0.5 % [facility] Leukocytes [#/volume] correc jomar for nucleated erythrocytes in Blood by Automated counon 10-30-2023 WBC corrected for nucl RBC Auto (Bld) [#/Vol] 8.19 k/uL 3.70-11.00 [facility] Lymphocytes Auto (Bld) [#/Vo l]on 10-30-2023 Lymphocytes (Bld) [#/Vol] 1.36 10*3/uL 1.00-4.00 [facility] Lymphocytes/100 WBC Auto (Bl d)on 10-30-2023 Lymphocytes/100 WBC (Bld) 16.6 % [facility] MCH Auto (RBC) [Entitic mass ]on 10-30-2023 MCH (RBC) [Entitic mass] 31.3 pg 26.0-34.0 [facility] MCHC Auto (RBC) [Mass/Vol]on 10-30-2023 MCHC (RBC) [Mass/Vol] 34.1 g/dL 30.5-36.0 [facility] MCV Auto (RBC) [Entitic vol] on 10-30-2023 MCV (RBC) [Entitic vol] 91.8 fL 80.0-100.0 [facility] Monocytes Auto (Bld) [#/Vol] on 10-30-2023 Monocytes (Bld) [#/Vol] 0.62 10*3/uL <0.87 [facility] Monocytes/100 WBC Auto (Bld) on 10-30-2023 Monocytes/100 WBC (Bld) 7.6 % [facility] Neutrophils Auto (Bld) [#/Vo l]on 10-30-2023 Neutrophils (Bld) [#/Vol] 5.78 10*3/uL 1.45-7.50 [facility] Neutrophils/100 WBC Auto (Bl d)on 10-30-2023 Neutrophils/100 WBC (Bld) 70.5 % [facility] No Panel Informationon 10-29 Estimated GFR (CKD-EPI) 89 mL/min/1.73m??? >=60 [facility] Comment on above: Estimated Glomerular Filtration [...] GFR. Prostate Specific Antigen 0.16 ng/mL <2.60 [facility] Comment on above: Total PSA test metho dology used is the Electrochemiluminescence Immunoassay by [employer]. Total PSA values by differing methodologies cannot be interchanged. Testosterone Level 78 ng/dL 193-824 [facility] Comment on above: A testosterone level in the 193-320 ng/dL range with associated clinical symptoms is considered low and may indicate hypogonadism (from NEJM 2010 363:123-135). Results >320 ng/dL are considered normal.Result rechecked. Nucleated RBC Auto (Bld) [#/ Vol]on 10-30-2023 Nucleated RBC (Bld) [#/Vol] 10*3/uL <0.01 [facility] Nucleated erythrocytes [Pres ence] in Blood by Automated counton 10-30-2023 Nucleated RBC Auto Ql (Bld) 0.0 /100{WBC} [facility] PSA SerPl-mCncon 10-30-2023 Prostate specific Ag [Mass/Vol] 0.16 ng/mL Normal <2.60 [facility] Comment on above: Order Comment: Speci men Type: BLOOD SPECIMEN Ordering Facility: [facility] Address: [address] [place] [address] [place] [address] Result Comment: Tota l PSA test methodology used is the Electrochemiluminescence Immunoassay by [employer]. Total PSA values by differing methodologies cannot be interchanged. Performed By: #### 2 857-1 #### [facility] CLIA [id number] [address] [place] [address] [place] Platelet mean volume Auto (B ld) [Entitic vol]on 10-30-2023 Platelet mean volume (Bld) [Entitic vol] 9.5 fL 9.0-12.7 [facility] Platelets Auto (Bld) [#/Vol] on 10-30-2023 Platelets (Bld) [#/Vol] 192 10*3/uL 150-400 [facility] Protein [Mass/volume] in Ser um or Plasmaon 10-30-2023 Protein [Mass/Vol] 6.5 g/dL 6.3-8.0 [facility] RBC Auto (Bld) [#/Vol]on RBC (Bld) [#/Vol] 3.90 10*6/uL 4.20-6.00 [facility] Serum or plasma anion gap de terminationon 10-30-2023 Anion gap [Moles/Vol] 13 mmol/L 9-18 [facility] Testost SerPl-mCncon 024 Testosterone [Mass/Vol] 78 ng/dL Low 193-824 [facility] Comment on above: Order Comment: Speci men Type: BLOOD SPECIMEN Ordering Facility: [facility] Address: [address] [place] [address] Result Comment: A te stosterone level in the 193-320 ng/dL range with associated clinical symptoms is considered low and may indicate hypogonadism (from NEJM 2010 363:123-135). Results >320 ng/dL are considered normal. Result rechecked. Performed By: #### 2 986-8 #### [facility] CLIA [id number] [address] [place] [address] [place] Patient Educationon 10-20-19 24 Patient Education Oncology [...] under a microscope. This is called the [place] score and the total score can range [...] to normal prostate cells (moderately differentiated). ? [place] 8, 9, or 10: This indicates that [...] external be (more content not included)... Normal [facility] Urology Office/Clinic Noteon 10-20-2023 Urology Office/Clinic [...] 2.64 05/05/22 - 0.15 10/25/22 - 0.13 07/20/23 - 0.09 04/12/23 - 0.14 04/24/23 - [...] When Contact Information KAEL JAMES, Anthony Lee, [place] [id number]- Additional Instructions: 6 mos w/ PSA and possible Lupron Patient Education Prostate Cancer IOlamide, personally scribed for Dr. Scruggs on 10/20/2023 [...] 1 tab(s), Oral, Daily ipratropium Nasal 0.06% [place] metformin 1000 mg oral tablet, Oral, BID metoprolol 25 mg ER Tab, 25 mg= 1 tab(s), Oral, BID Vitamin D3 Xtandi 80 mg oral tablet, Oral, Daily Allergies penicillin G benzathine (Unknown) Social History Alcohol Current, 1-2 times per year, 02/04/2019 Tobacco Never (less than 100 in lifetime) Tobacco Use:. Never Smokeless Tobacco Use:. (more content not included)... Normal [facility] Comment on above: Result Comment: Elec tronically Signed By: Anhtony SCRUGGS MD\.br\Date and Time Signed: 10/20/23 09:57 EDT\.br\Electronically Co-Signed By: Olamide Ureña\.br\Date and Time Co-Signed: 10/20/23 09:55 EDT No Panel Informationon 10-08 Prostate Specific Antigen Total <0.13 ng/mL <=4.00 [facility] No Panel Informationon 08-28 [facility] Type of biopsy: schmidt ential Informed consent: [...] used: 0.5 cc [facility] Office Visiton 06-22-2023 Follow-up visit [id number] Pablo Felix 1945 M Date Provider Department Center 06/22/2023 271-KESHIA, BRIDGER [facility] Family History Problem Relation Age of Onset Coronary artery disease Father Family Status - Relation Status Age at Father Level of Service:02624 [place] OFFICE/OUTPATIENT ESTABLISHED MOD MDM 30-39 MIN Normal [facility] GLYCOHEMOGLOBIN A1Con 2022 ADA RECOMMENDATION SEE BELOW Normal [facility] Comment on above: Result Comment: ADA RECOMMENDED LIMIT 4.0 - 6.0 ADA THERAPEUTIC TARGET < 7.0 ACTION SUGGESTED > 7.0 Performed By: #### D ATA1C #### [facility] [address] [address] [address] Bharati Aguiar Glucose [Mass/Vol] 131 mg/dL Normal [facility] Comment on above: Performed By: #### D ATA1C #### [facility] [address] [address] [address] Bharati Aguiar HbA1c (Bld) [Mass fraction] 6.2 % Normal 4.5-6.2 [facility] Comment on above: Performed By: #### D ATA1C #### [facility] [address] [address] [address] Bharati Aguiar XR CSPINE OBL FLEX_EXTon [...] by: CYNTHIA TORRES Date: 2022-07-21 15:52 Normal [facility] GLYCOHEMOGLOBIN A1Con 2021 ADA RECOMMENDATION SEE BELOW Normal [facility] Comment on above: Result Comment: ADA RECOMMENDED LIMIT 4.0 - 6.0 ADA THERAPEUTIC TARGET < 7.0 ACTION SUGGESTED > 7.0 Performed By: #### D ATA1C #### [facility] [address] [address] [address] Bharati Aguiar Glucose [Mass/Vol] 134 mg/dL Normal [facility] Comment on above: Performed By: #### D ATA1C #### [facility] [address] [address] [address] Bharati Aguiar HbA1c (Bld) [Mass fraction] 6.3 % Critically high 4.5-6.2 [facility] Comment on above: Performed By: #### D ATA1C #### [facility] [address] [address] [address] Bharati Aguiar ECHOCARDIO M/2D COMPLETEon 1 ECHOCARDIO M/2D COMPLETE Patient: PABLO FELIX Exam Date: 04/27/2022 : 1945 Gender:M Ordering : LORA ENGLISH Admission #: [id number] Family : DR JAMAR FALL DSony Order #: [id number] CLICK HERE TO VIEW EXAM ECHOCARDIOGRAM REPORT [...] Carreon M.D. on 04/28/2022 at 19:09 Normal [facility] GLYCOHEMOGLOBIN A1Con 2021 ADA RECOMMENDATION SEE BELOW Normal [facility] Comment on above: Result Comment: ADA RECOMMENDED LIMIT 4.0 - 6.0 ADA THERAPEUTIC TARGET < 7.0 ACTION SUGGESTED > 7.0 Performed By: #### D ATA1C ####[facility] [id number] [place] [id number]. Bharati Aguiar Glucose [Mass/Vol] 137 mg/dL Normal [facility] Comment on above: Performed By: #### D ATA1C ####[facility] [id number] [place] [id number]. Bharati Aguiar HbA1c (Bld) [Mass fraction] 6.4 % Critically high 4.5-6.2 [facility] Comment on above: Performed By: #### D ATA1C ####[facility] [id number] [place] [id number]. Bharati Aguira [place] BONE SC WH BODYon 022 NM [...] it was not obviously included in the hexyy-cl-tayz of the recent CT. There are foci [...] DE JESUS Date: 2021-11-06 12:45 Normal [facility] CT CHEST W CONon 11-05-2021 CT [...] LUIZ UMANA Date: 2021-11-05 14:08 Normal [facility] PROF 14(COMP METB)on 022 Albumin [Mass/Vol] 3.6 g/dL Normal 3.4-5.0 [facility] Comment on above: Performed By: #### C MP #### [facility] [address] [place] [address] Dr. Bharati Aguiar Albumin/Globulin [Mass ratio] 1.1 {ratio} Normal [facility] Comment on above: Performed By: #### C MP #### [facility] [address] [place] [address] Dr. Bharati Aguiar ALP [Catalytic activity/Vol] 89 U/L Normal 46-116 [facility] Comment on above: Performed By: #### C MP #### [facility] [address] [place] [address] Dr. Bharati Aguiar ALT [Catalytic activity/Vol] 33 U/L Normal 16-63 [facility] Comment on above: Performed By: #### C MP #### [facility] [address] [place] [address] Dr. Bharati Aguiar Anion gap [Moles/Vol] 12.1 mmol/L Normal [facility] Comment on above: Performed By: #### C MP #### [facility] [address] [place] [address] Dr. Bharati Aguiar AST [Catalytic activity/Vol] 19 U/L Normal 15-37 [facility] Comment on above: Performed By: #### C MP #### [facility] [address] [address] [address] Bharati Aguiar Bilirubin [Mass/Vol] 0.9 mg/dL Normal 0.2-1.3 [facility] Comment on above: Performed By: #### C MP #### [facility] [address] [address] [address] Bharati Aguiar Calcium [Mass/Vol] 8.8 mg/dL Normal 8.5-10.1 [facility] Comment on above: Performed By: #### C MP #### [facility] [address] [address] [address] Bharati Aguiar Chloride [Moles/Vol] 103 mmol/L Normal 98-107 [facility] Comment on above: Performed By: #### C MP #### [facility] [address] [address] [address] Bharati Aguiar CO2 [Moles/Vol] 28.6 mmol/L Normal 22.0-30.0 [facility] Comment on above: Performed By: #### C MP #### [facility] [address] [address] [address] Bharati Aguiar Creatinine [Mass/Vol] 0.85 mg/dL Normal 0.66-1.25 [facility] Comment on above: Performed By: #### C MP #### [facility] [address] [address] [address] Bharati Aguiar EGFR-AF INDIAN >60 Normal >=60 [facility] Comment on above: Performed By: #### C MP #### [facility] [address] [address] [address] Bharati Aguiar EGFR-NON AF INDIAN >60 Normal >=60 [facility] Comment on above: Performed By: #### C MP #### [facility] [address] [address] [address] Bharati Aguiar Globulin (S) [Mass/Vol] 3.4 g/dL Normal [facility] Comment on above: Performed By: #### C MP #### [facility] [address] [address] [address] Bharati Aguiar Glucose [Mass/Vol] 127 mg/dL Critically high 74-106 [facility] Comment on above: Performed By: #### C MP #### [facility] [address] [address] [address] Bharati Aguiar Potassium [Moles/Vol] 4.7 mmol/L Normal 3.4-5.0 [facility] Comment on above: Performed By: #### C MP #### [facility] [address] [address] [address] Bharati Aguiar Protein [Mass/Vol] 7.0 g/dL Normal 6.1-8.2 [facility] Comment on above: Performed By: #### C MP #### [facility] [address] [address] [address] Bharati Aguiar Sodium [Moles/Vol] 139 mmol/L Normal 137-145 [facility] Comment on above: Performed By: #### C MP #### [facility] [address] [address] [address] Bharati Aguiar Urea nitrogen [Mass/Vol] 18.0 mg/dL Normal 7.0-18.0 [facility] Comment on above: Performed By: #### C MP #### [facility] [address] [address] [address] Bharati Aguiar Urea nitrogen/Creatinin e [Mass ratio] 21.2 mg/mg Normal [facility] Comment on above: Performed By: #### C MP #### [facility] [address] [address] [address] Bharati Aguiar Vital Signs Date Time Vital Sign Value Performing Clinician Facility 09-02-2024 09:44-0500 Body height 168.91 cm [facility] 09-02-2024 09:44-0500 Body mass index (BMI) [Ratio] 32.4 kg/m2 [facility] 09-02-2024 09:44-0500 Body weight 92.53 kg [facility] 09-02-2024 09:44-0500 Diastolic blood pressure 80 mm[Hg] [facility] 09-02-2024 09:44-0500 Heart rate 46 /min [facility] 09-02-2024 09:44-0500 Respiratory rate 12 /min [facility] 09-02-2024 09:44-0500 Systolic blood pressure 130 mm[Hg] [facility] 08-08-2024 09:07-0500 Body height 167.6 cm Christo Howard APRN.SALES CORRESPONDENT Work Phone: [facility] 08-08-2024 09:07-0500 Body mass index (BMI) [Ratio] 33.82 kg/m2 Christo Howard APRN.SALES CORRESPONDENT Work Phone: [facility] 08-08-2024 09:07-0500 Body temperature 97.9 [degF] Christo Howard APRN.SALES CORRESPONDENT Work Phone: [facility] 08-08-2024 09:07-0500 Body weight 95 kg Christo Howard APRN.SALES CORRESPONDENT Work Phone: [facility] 08-08-2024 09:07-0500 Diastolic blood pressure 56 mm[Hg] Christo Howard APRN.SALES CORRESPONDENT Work Phone: [facility] 08-08-2024 09:07-0500 Heart rate 57 /min Christo Howard APRN.SALES CORRESPONDENT Work Phone: [facility] 08-08-2024 09:07-0500 Respiratory rate 16 /min Christo Howard APRN.SALES CORRESPONDENT Work Phone: [facility] 08-08-2024 09:07-0500 SaO2% (BldA) [Mass fraction] 99 % Christo Howard APRN.SALES CORRESPONDENT Work Phone: [facility] 08-08-2024 09:07-0500 Systolic blood pressure 149 mm[Hg] Christo Howard APRN.SALES CORRESPONDENT Work Phone: [facility] 06-10-2024 14:25-0500 Body height 168.91 cm [facility] 06-10-2024 14:25-0500 Body mass index (BMI) [Ratio] 32.8 kg/m2 [facility] 06-10-2024 14:25-0500 Body weight 93.55 kg [facility] 06-10-2024 14:25-0500 Diastolic blood pressure 79 mm[Hg] [facility] 06-10-2024 14:25-0500 Heart rate 61 /min [facility] 06-10-2024 14:25-0500 Respiratory rate 12 /min [facility] 06-10-2024 14:25-0500 Systolic blood pressure 153 mm[Hg] [facility] 05-09-2024 08:52-0400 Body mass index (BMI) [Ratio] 32.79 kg/m2 Marco A Esqueda MD Work Phone: [facility] 05-09-2024 08:52-0400 Body temperature 97.3 [degF] Marco A Esqueda MD Work Phone: [facility] 05-09-2024 08:52-0400 Body weight 92.1 kg Marco A Esqueda MD Work Phone: [facility] 05-09-2024 08:52-0400 Diastolic blood pressure 62 mm[Hg] Marco A Esqueda MD Work Phone: [facility] 05-09-2024 08:52-0400 Heart rate 62 /min Marco A Esqueda MD Work Phone: [facility] 05-09-2024 08:52-0400 Respiratory rate 16 /min Marco A Esqueda MD Work Phone: [facility] 05-09-2024 08:52-0400 SaO2% (BldA) [Mass fraction] 99 % Marco A Esqueda MD Work Phone: [facility] 05-09-2024 08:52-0400 Systolic blood pressure 141 mm[Hg] Marco A Esqueda MD Work Phone: [facility] 04-19-2024 08:15-0400 Blood Pressure Location Anthony KAEL [facility] 04-19-2024 08:15-0400 Body temperature 98.6 [degF] Anthony SCRUGGS [facility] 04-19-2024 08:15-0400 Diastolic blood pressure 69 mm[Hg] Anthony SCRUGGS [facility] 04-19-2024 08:15-0400 Heart rate 64 /min Anthony SCRUGGS [facility] 04-19-2024 08:15-0400 Respiratory rate 17 /min Anthony SCRUGGS [facility] 04-19-2024 08:15-0400 Systolic blood pressure 129 mm[Hg] Anthony SCRUGGS [facility] 03-26-2024 08:37-0400 Body height 168.91 cm [facility] 03-26-2024 08:37-0400 Body mass index (BMI) [Ratio] 33 kg/m2 [facility] 03-26-2024 08:37-0400 Body weight 94.12 kg [facility] 03-26-2024 08:37-0400 Diastolic blood pressure 80 mm[Hg] [facility] 03-26-2024 08:37-0400 Heart rate 52 /min [facility] 03-26-2024 08:37-0400 Respiratory rate 12 /min [facility] 03-26-2024 08:37-0400 Systolic blood pressure 130 mm[Hg] [facility] 02-02-2024 11:06-0400 Body height 167.6 cm Lynne Alarcon APRN.SALES CORRESPONDENT Work Phone: [facility] 02-02-2024 11:06-0400 Body mass index (BMI) [Ratio] 33.36 kg/m2 Lynne Alarcon APRN.SALES CORRESPONDENT Work Phone: [facility] 02-02-2024 11:06-0400 Body temperature 97.3 [degF] Lynne Alarcon LOGISTICS ANALYTICS MANAGER.SALES CORRESPONDENT Work Phone: [facility] 02-02-2024 11:06-0400 Body weight 93.7 kg Lynne Alarcon LOGISTICS ANALYTICS MANAGER.SALES CORRESPONDENT Work Phone: [facility] 02-02-2024 11:06-0400 Diastolic blood pressure 54 mm[Hg] Lynne Gross LOGISTICS ANALYTICS MANAGER.SALES CORRESPONDENT Work Phone: [facility] 02-02-2024 11:06-0400 Heart rate 52 /min Lynne Alarcon LOGISTICS ANALYTICS MANAGER.SALES CORRESPONDENT Work Phone: [facility] 02-02-2024 11:06-0400 Respiratory rate 16 /min Lynne Alarcon LOGISTICS ANALYTICS MANAGER.SALES CORRESPONDENT Work Phone: [facility] 02-02-2024 11:06-0400 SaO2% (BldA) [Mass fraction] 98 % Lynne Alarcon LOGISTICS ANALYTICS MANAGER.SALES CORRESPONDENT Work Phone: [facility] 02-02-2024 11:06-0400 Systolic blood pressure 137 mm[Hg] Lynne Alarcon LOGISTICS ANALYTICS MANAGER.SALES CORRESPONDENT Work Phone: [facility] 11-23-2023 08:38-0400 Body height 168.91 cm [facility] 11-23-2023 08:38-0400 Body mass index (BMI) [Ratio] 33.2 kg/m2 [facility] 11-23-2023 08:38-0400 Body weight 94.8 kg [facility] 11-23-2023 08:38-0400 Diastolic blood pressure 69 mm[Hg] [facility] 11-23-2023 08:38-0400 Heart rate 48 /min [facility] 11-23-2023 08:38-0400 Respiratory rate 12 /min [facility] 11-23-2023 08:38-0400 Systolic blood pressure 130 mm[Hg] [facility] 11-02-2023 09:14-0400 Body height 167.6 cm Christo Howard LOGISTICS ANALYTICS MANAGER.SALES CORRESPONDENT Work Phone: [facility] 11-02-2023 09:14-0400 Body temperature 97.81 [degF] Christo Howard APRN.SALES CORRESPONDENT Work Phone: [facility] 11-02-2023 09:14-0400 Body weight 92.9 kg Christo Howard APRN.SALES CORRESPONDENT Work Phone: [facility] 11-02-2023 09:14-0400 Diastolic blood pressure 44 mm[Hg] Christo Howard APRN.SALES CORRESPONDENT Work Phone: [facility] 11-02-2023 09:14-0400 Heart rate 56 /min Christo Howard APRN.SALES CORRESPONDENT Work Phone: [facility] 11-02-2023 09:14-0400 Respiratory rate 16 /min Christo Howard APRN.SALES CORRESPONDENT Work Phone: [facility] 11-02-2023 09:14-0400 SaO2% (BldA) [Mass fraction] 97 % Christo Howard APRN.SALES CORRESPONDENT Work Phone: [facility] 11-02-2023 09:14-0400 Systolic blood pressure 123 mm[Hg] Christo Howard APRN.SALES CORRESPONDENT Work Phone: [facility] 10-20-2023 09:05-0400 Blood Pressure Location Anthony SCRUGGS [facility] 10-20-2023 09:05-0400 Diastolic blood pressure 64 mm[Hg] Anthony SCRUGGS [facility] 10-20-2023 09:05-0400 Heart rate 53 /min Anthony SCRUGGS [facility] 10-20-2023 09:05-0400 Respiratory rate 16 /min Anthony SCRUGGS [facility] 10-20-2023 09:05-0400 Systolic blood pressure 110 mm[Hg] Anthony SCRUGGS [facility] 09-12-2023 14:13-0500 Body height 168.91 cm [facility] 09-12-2023 14:13-0500 Body mass index (BMI) [Ratio] 33.4 kg/m2 [facility] 09-12-2023 14:13-0500 Body weight 95.42 kg [facility] 09-12-2023 14:13-0500 Diastolic blood pressure 84 mm[Hg] [facility] 09-12-2023 14:13-0500 Heart rate 56 /min [facility] 09-12-2023 14:13-0500 Respiratory rate 12 /min [facility] 09-12-2023 14:13-0500 Systolic blood pressure 143 mm[Hg] [facility] 08-24-2023 08:30-0500 Body height 168.91 cm Jamar Ball Other [facility] [employer] Other 08-24-2023 08:30-0500 Body mass index (BMI) [Ratio] 34.08 kg/m2 Jamar Ball Other [facility] [employer] Other 08-24-2023 08:30-0500 Body weight 97.25 kg Jamar Ball Other [facility] [employer] Other 08-24-2023 08:30-0500 Diastolic blood pressure 81 mm[Hg] Jamar Ball Other [facility] [employer] Other 08-24-2023 08:30-0500 Respiratory rate 12 /min Jamar Ball Other [facility] [employer] Other 08-24-2023 08:30-0500 Systolic blood pressure 125 mm[Hg] Jamar Ball Other [employer] Other 05-30-2023 15:00-0500 Body height 168.91 cm Jamar Ball Other [facility] [employer] Other 05-30-2023 15:00-0500 Body mass index (BMI) [Ratio] 32.84 kg/m2 Jamar Ball Other [employer] Other 05-30-2023 15:00-0500 Body weight 93.71 kg Jamar Ball Other [employer] Other 05-30-2023 15:00-0500 Diastolic blood pressure 66 mm[Hg] Jamar Ball Other [employer] Other 05-30-2023 15:00-0500 Respiratory rate 12 /min Jamar Ball Other [employer] Other 05-30-2023 15:00-0500 Systolic blood pressure 141 mm[Hg] Jamar Ball Other [employer] Other 05-01-2023 09:45-0400 Body height 168.91 cm Jamar Ball Other [employer] Other 05-01-2023 09:45-0400 Body mass index (BMI) [Ratio] 32.14 kg/m2 Jamar Ball Other [employer] Other 05-01-2023 09:45-0400 Body weight 91.72 kg Jamar Ball Other [employer] Other 05-01-2023 09:45-0400 Diastolic blood pressure 62 mm[Hg] Jamar Ball Other [employer] Other 05-01-2023 09:45-0400 Respiratory rate 12 /min Jamar Ball Other [employer] Other 05-01-2023 09:45-0400 Systolic blood pressure 129 mm[Hg] Jamar Ball Other [employer] Other 04-27-2023 09:23-0400 Diastolic blood pressure 49 mm[Hg] Christo Howard APRN.SALES CORRESPONDENT Work Phone: [facility] 04-27-2023 09:23-0400 Heart rate 50 /min Christo Howard APRN.SALES CORRESPONDENT Work Phone: [facility] 04-27-2023 09:23-0400 Systolic blood pressure 141 mm[Hg] Christo Howard LOGISTICS ANALYTICS MANAGER.SALES CORRESPONDENT Work Phone: [facility] 04-27-2023 09:20-0400 Body height 167.6 cm Christo Howard APRN.SALES CORRESPONDENT Work Phone: [facility] 04-27-2023 09:20-0400 Body temperature 97 [degF] Christo Howard APRN.SALES CORRESPONDENT Work Phone: [facility] 04-27-2023 09:20-0400 Body weight 92.53 kg Christo Howard APRN.SALES CORRESPONDENT Work Phone: [facility] 04-27-2023 09:20-0400 Respiratory rate 16 /min Christo Howard APRN.SALES CORRESPONDENT Work Phone: [facility] 04-27-2023 09:20-0400 SaO2% (BldA) [Mass fraction] 100 % Christo Howard APRN.SALES CORRESPONDENT Work Phone: [facility] 04-17-2023 08:45-0400 Blood Pressure Location Anthony SCRUGGS [facility] 04-17-2023 08:45-0400 Diastolic blood pressure 68 mm[Hg] Anthony SCRUGGS [facility] 04-17-2023 08:45-0400 Heart rate 62 /min Anthony SCRUGGS [facility] 04-17-2023 08:45-0400 Respiratory rate 16 /min Anthony SCRUGGS [facility] 04-17-2023 08:45-0400 Systolic blood pressure 130 mm[Hg] Anthony SCRUGGS [facility] 04-05-2023 13:45-0400 Body height 168.91 cm Jamar Ball Other [employer] Other 04-05-2023 13:45-0400 Body mass index (BMI) [Ratio] 32.46 kg/m2 Jamar Ball Other [employer] Other 04-05-2023 13:45-0400 Body weight 92.63 kg Jamar Ball Other [employer] Other 04-05-2023 13:45-0400 Diastolic blood pressure 67 mm[Hg] Jamar Ball Other [employer] Other 04-05-2023 13:45-0400 Respiratory rate 12 /min Jamar Ball Other [employer] Other 04-05-2023 13:45-0400 Systolic blood pressure 109 mm[Hg] Jamar Ball Other [employer] Other 03-15-2023 08:45-0400 Body height 168.91 cm Jamar Ball Other [employer] Other 03-15-2023 08:45-0400 Body mass index (BMI) [Ratio] 32.81 kg/m2 Jamar Ball Other [employer] Other 03-15-2023 08:45-0400 Body weight 93.62 kg Jamar Ball Other [employer] Other 03-15-2023 08:45-0400 Diastolic blood pressure 69 mm[Hg] Jamar Ball Other [employer] Other 03-15-2023 08:45-0400 Respiratory rate 12 /min Jamar Fall Other [employer] Other 03-15-2023 08:45-0400 Systolic blood pressure 131 mm[Hg] Jamar Fall Other [employer] Other 02-02-2023 09:32-0400 Body height 167.6 cm Marco A Esqueda MD Work Phone: [facility] 02-02-2023 09:32-0400 Body temperature 97.2 [degF] Marco A Esqueda MD Work Phone: [facility] 02-02-2023 09:32-0400 Body weight 96.62 kg Marco A Esqueda MD Work Phone: [facility] 02-02-2023 09:32-0400 Diastolic blood pressure 43 mm[Hg] Marco A Esqueda MD Work Phone: [facility] 02-02-2023 09:32-0400 Heart rate 50 /min aMrco A Esqueda MD Work Phone: [facility] 02-02-2023 09:32-0400 Respiratory rate 16 /min Marco A Esqueda MD Work Phone: [facility] 02-02-2023 09:32-0400 SaO2% (BldA) [Mass fraction] 97 % Marco A Esqueda MD Work Phone: [facility] 02-02-2023 09:32-0400 Systolic blood pressure 131 mm[Hg] Marco A Esqueda MD Work Phone: [facility] 11-10-2022 09:30-0400 Body height 167.6 cm Christo Howard APRN.SALES CORRESPONDENT Work Phone: [facility] 11-10-2022 09:30-0400 Body temperature 97.11 [degF] Christo Howard APRN.SALES CORRESPONDENT Work Phone: [facility] 11-10-2022 09:30-0400 Body weight 96.44 kg Christo Howard APRN.SALES CORRESPONDENT Work Phone: [facility] 11-10-2022 09:30-0400 Diastolic blood pressure 68 mm[Hg] Christo Howard LOGISTICS ANALYTICS MANAGER.SALES CORRESPONDENT Work Phone: [facility] 11-10-2022 09:30-0400 Heart rate 54 /min Christo Howard APRN.SALES CORRESPONDENT Work Phone: [facility] 11-10-2022 09:30-0400 Respiratory rate 16 /min Christo Howard LOGISTICS ANALYTICS MANAGER.SALES CORRESPONDENT Work Phone: [facility] 11-10-2022 09:30-0400 SaO2% (BldA) [Mass fraction] 98 % Christo Howard APRN.SALES CORRESPONDENT Work Phone: [facility] 11-10-2022 09:30-0400 Systolic blood pressure 134 mm[Hg] Christo Howard APRN.SALES CORRESPONDENT Work Phone: [facility] 09-16-2022 08:30-0500 Body height 168.91 cm Jamar Ball Other [employer] Other 09-16-2022 08:30-0500 Body mass index (BMI) [Ratio] 33.16 kg/m2 Jamar Ball Other [employer] Other 09-16-2022 08:30-0500 Body weight 94.62 kg Jamar Ball Other [employer] Other 09-16-2022 08:30-0500 Diastolic blood pressure 78 mm[Hg] Jamar Ball Other [employer] Other 09-16-2022 08:30-0500 Respiratory rate 12 /min Jamar Ball Other [employer] Other 09-16-2022 08:30-0500 Systolic blood pressure 116 mm[Hg] Jamar Ball Other [employer] Other 09-09-2022 08:30-0500 Body height 168.91 cm Jamar Ball Other [employer] Other 09-09-2022 08:30-0500 Body mass index (BMI) [Ratio] 33.45 kg/m2 Jamar Ball Other [employer] Other 09-09-2022 08:30-0500 Body weight 95.44 kg Jamar Ball Other [employer] Other 09-09-2022 08:30-0500 Diastolic blood pressure 76 mm[Hg] Jamar Ball Other [employer] Other 09-09-2022 08:30-0500 Respiratory rate 12 /min Jamar Ball Other [employer] Other 09-09-2022 08:30-0500 Systolic blood pressure 118 mm[Hg] Jamar Ball Other [employer] Other 09-09-2022 07:30-0500 Body height 168.91 cm Jamar Ball Other [employer] Other 09-09-2022 07:30-0500 Body mass index (BMI) [Ratio] 33.45 kg/m2 Jamar Ball Other [employer] Other 09-09-2022 07:30-0500 Body weight 95.44 kg Jamar Ball Other [employer] Other 09-09-2022 07:30-0500 Diastolic blood pressure 76 mm[Hg] Jamar Ball Other [employer] Other 09-09-2022 07:30-0500 Respiratory rate 12 /min Jamar Ball Other [employer] Other 09-09-2022 07:30-0500 Systolic blood pressure 118 mm[Hg] Jamar Ball Other [employer] Other 08-11-2022 09:24-0500 Body height 167.6 cm Marco A Esqueda MD Work Phone: [facility] 08-11-2022 09:24-0500 Body temperature 97 [degF] Marco A Esqueda MD Work Phone: [facility] 08-11-2022 09:24-0500 Body weight 96.44 kg Marco A Esqueda MD Work Phone: [facility] 08-11-2022 09:24-0500 Diastolic blood pressure 56 mm[Hg] Marco A Esqueda MD Work Phone: [facility] 08-11-2022 09:24-0500 Heart rate 53 /min Marco A Esqueda MD Work Phone: [facility] 08-11-2022 09:24-0500 Respiratory rate 16 /min Marco A Esqueda MD Work Phone: [facility] 08-11-2022 09:24-0500 SaO2% (BldA) [Mass fraction] 97 % Marco A Esqueda MD Work Phone: [facility] 08-11-2022 09:24-0500 Systolic blood pressure 129 mm[Hg] Marco A Esqueda MD Work Phone: [facility] 07-21-2022 15:30-0500 Body height 168.91 cm Jamar Ball Other [employer] Other 07-21-2022 15:30-0500 Body mass index (BMI) [Ratio] 34.18 kg/m2 Jamar Ball Other [employer] Other 07-21-2022 15:30-0500 Body weight 97.52 kg Jamar Ball Other [facility] [employer] Other 07-21-2022 15:30-0500 Diastolic blood pressure 76 mm[Hg] Jamar Ball Other [facility] [employer] Other 07-21-2022 15:30-0500 Respiratory rate 16 /min Jamar Ball Other [facility] [employer] Other 07-21-2022 15:30-0500 Systolic blood pressure 118 mm[Hg] Jamar Ball Other [facility] [employer] Other 05-13-2022 09:07-0400 Blood Pressure Location Anthony SCRUGGS [facility] 05-13-2022 09:07-0400 Diastolic blood pressure 72 mm[Hg] Anthony SCRUGGS [facility] 05-13-2022 09:07-0400 Heart rate 55 /min Anthony SCRUGGS [facility] 05-13-2022 09:07-0400 Respiratory rate 16 /min Anthony SCRUGGS [facility] 05-13-2022 09:07-0400 Systolic blood pressure 108 mm[Hg] Anthony SCRUGGS [facility] 05-12-2022 10:41-0400 Body temperature 97.81 [degF] LUAN Khan MD Work Phone: [facility] 05-12-2022 10:41-0400 Body weight 95.07 kg LUAN Khan MD Work Phone: [facility] 05-12-2022 10:41-0400 Diastolic blood pressure 42 mm[Hg] LUAN Khan MD Work Phone: [facility] 05-12-2022 10:41-0400 Heart rate 51 /min LUAN Khan MD Work Phone: [facility] 05-12-2022 10:41-0400 Respiratory rate 18 /min LUAN Khan MD Work Phone: [facility] 05-12-2022 10:41-0400 SaO2% (BldA) [Mass fraction] 99 % LUAN Khan MD Work Phone: [facility] 05-12-2022 10:41-0400 Systolic blood pressure 134 mm[Hg] LUAN Khan MD Work Phone: [facility] 02-17-2022 09:36-0400 Body height 167.6 cm Marco A Esqueda MD Work Phone: [facility] 02-17-2022 09:36-0400 Body temperature 97.9 [degF] Marco A Esqueda MD Work Phone: [facility] 02-17-2022 09:36-0400 Body weight 97.07 kg Marco A Esqueda MD Work Phone: [facility] 02-17-2022 09:36-0400 Diastolic blood pressure 58 mm[Hg] Marco A Esqueda MD Work Phone: [facility] 02-17-2022 09:36-0400 Heart rate 63 /min Marco A Esqueda MD Work Phone: [facility] 02-17-2022 09:36-0400 Respiratory rate 16 /min Marco A Esqueda MD Work Phone: [facility] 02-17-2022 09:36-0400 SaO2% (BldA) [Mass fraction] 99 % Marco A Esqueda MD Work Phone: [facility] 02-17-2022 09:36-0400 Systolic blood pressure 133 mm[Hg] Marco A Esqueda MD Work Phone: [facility] 11-18-2021 10:50-0400 Body temperature 97.7 [degF] [facility] Work Phone: [facility] 11-18-2021 10:50-0400 Diastolic blood pressure 63 mm[Hg] [facility] Work Phone: [facility] 11-18-2021 10:50-0400 Heart rate 60 /min [facility] Work Phone: [facility] 11-18-2021 10:50-0400 Respiratory rate 18 /min [facility] Work Phone: [facility] 11-18-2021 10:50-0400 SaO2% (BldA) [Mass fraction] 95 % [facility] Work Phone: [facility] 11-18-2021 10:50-0400 Systolic blood pressure 139 mm[Hg] [facility] Work Phone: [facility] 11-11-2021 13:58-0400 Body height 167.6 cm Marco A Esqueda MD Work Phone: [facility] 11-11-2021 13:58-0400 Body temperature 97.39 [degF] Marco A Esqueda MD Work Phone: [facility] 11-11-2021 13:58-0400 Body weight 98.97 kg Marco A Esqueda MD Work Phone: [facility] 11-11-2021 13:58-0400 Diastolic blood pressure 54 mm[Hg] Marco A Esqueda MD Work Phone: [facility] 11-11-2021 13:58-0400 Heart rate 68 /min Marco A Esqueda MD Work Phone: [facility] 11-11-2021 13:58-0400 Respiratory rate 16 /min Marco A Esqueda MD Work Phone: [facility] 11-11-2021 13:58-0400 SaO2% (BldA) [Mass fraction] 98 % Marco A Esqueda MD Work Phone: [facility] 11-11-2021 13:58-0400 Systolic blood pressure 130 mm[Hg] Marco A Esqueda MD Work Phone: [facility] 11-08-2021 13:03-0400 Blood Pressure Location Anthony SCRUGGS [facility] 11-08-2021 13:03-0400 Diastolic blood pressure 60 mm[Hg] [facility] 11-08-2021 13:03-0400 Heart rate 61 /min [facility] 11-08-2021 13:03-0400 Systolic blood pressure 135 mm[Hg] Anthony KAEL [facility] Encounters Encounter Date Encounter Type Care Provider Facility Start: 03-31-2025 ambulatory Anthony Bloomi ty:NORA Roberts Start: 10-21-2024 End: 10-21-2024 ambulatory Nicole Herrera MD Facility: [facility] Start: 10-07-2024 End: 10-07-2024 ambulatory Anthony SCRUGGS Facility:[facility] Start: 10-07-2024 End: 10-07-2024 ambulatory Nicole Herrera MD Facility: [facility] Start: 09-02-2024 End: 09-02-2024 ambulatory [facility] Work Phone: Start: 09-02-2024 End: 09-02-2024 [facility] Work [facility]: Start: 08-30-2024 Patient encounter procedure [facility] Start: 08-08-2024 End: 08-08-2024 ambulatory [facility] [place] [facility] Work Phone: Hematology/Oncology Comment on above: Malignant neoplasm o f prostate (HCC) (Primary Dx) Malignant neoplasm o f prostate (HCC) (Primary Dx); Essential hypertension; 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 pectoris, unspecified vessel or lesion type; Type 2 diabetes mellitus without complication, without long-term current use of insulin (HCC) Start: 08-08-2024 End: 08-08-2024 Patient encounter procedure Christo Howard APRN.CNP Work Phone: Hematology/Oncology Start: 08-01-2024 End: 08-01-2024 ambulatory JAMAR FALL Facility:[facility] Start: 08-01-2024 Non-patient / Non-visit [facility] Work Phone: Start: 07-25-2024 End: 10-16-2024 Telephone encounter Marco A Esqueda MD Work Phone: [facility] Comment on above: Lab Orders Start: 06-10-2024 End: 06-10-2024 Patient encounter procedure [facility] Work Phone: Start: 05-09-2024 End: 05-09-2024 ambulatory [facility] [place] Work Phone: Hematology/Oncology Comment on above: Malignant neoplasm o f prostate (HCC) (Primary Dx) Start: 05-09-2024 End: 05-09-2024 Patient encounter procedure Marco A Esqueda MD Work Phone: Hematology/Oncology Start: 05-08-2024 End: 05-08-2024 Refill Aida Luo [facility] Work Phone: [facility] Comment on above: Refill Request Start: 05-03-2024 End: 05-03-2024 ambulatory JAMAR FALL Facility:[facility] Start: 04-19-2024 End: 04-19-2024 ambulatory Anthony SCRUGGS Facility:[facility] Start: 04-19-2024 End: 04-19-2024 Patient encounter procedure Anthony SCRUGGS [facility] Start: 04-01-2024 End: 04-01-2024 Refill Marco A Esqueda MD Work Phone: Hematology/Oncology Comment on above: Refill Request Start: 04-01-2024 End: 04-01-2024 Refill Aida Rodneycindy [facility] Work Phone: [facility] Comment on above: Refill Request Start: 03-29-2024 Encounter for preprocedural cardiovascular examination [facility] Start: 03-29-2024 End: 04-01-[address] [facility] Start: 03-29-2024 End: 04-01-2024 Encounter for other preprocedural examination [facility] Start: 03-29-2024 End: 04-01-2024 Encounter for preprocedural cardiovascular examination [facility] Start: 03-26-2024 End: 03-26-2024 ambulatory [facility] Work Phone: Start: 03-26-2024 End: 03-26-2024 Patient encounter procedure [facility] Work Phone: Start: 02-29-2024 End: 02-29-2024 ambulatory ALEXIA FRANCO Not Available Start: 02-26-2024 End: 02-26-2024 ambulatory LONG BOO Not Available Start: 02-02-2024 End: 02-02-2024 ambulatory [facility] [place] [place] Work Phone: Hematology/Oncology Comment on above: Malignant neoplasm o f prostate (HCC) (Primary Dx) Start: 02-02-2024 End: 02-02-2024 Patient encounter procedure Lynne Alarcon APRN.SALES CORRESPONDENT Work Phone: Hematology/Oncology Comment on above: Malignant neoplasm o f prostate (HCC) (Primary Dx) Start: 01-25-2024 End: 01-25-2024 ambulatory JAMAR FALL Facility:[facility] Start: 01-25-2024 Non-patient / Non-visit [facility] Work Phone: Start: 11-23-2023 End: 11-23-2023 ambulatory [facility] Work Phone: Start: 11-23-2023 End: 11-23-2023 Patient encounter procedure [facility] Work Phone: Start: 11-02-2023 End: 11-02-2023 ambulatory [facility] [facility] Work Phone: Hematology/Oncology Comment on above: Malignant neoplasm o f prostate (HCC) (Primary Dx) Malignant neoplasm o f prostate (HCC) (Primary Dx); Essential hypertension; 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 pectoris, unspecified vessel or lesion type; Type 2 diabetes mellitus without complication, without long-term current use of insulin (HCC); Lesion of skin of right ear; Abdominal discomfort Start: 11-02-2023 End: 11-02-2023 Patient encounter procedure Christo Howard APRN.SALES CORRESPONDENT Work Phone: [facility] Start: 10-30-2023 End: 10-30-2023 ambulatory JAMAR FALL Facility:[facility] Start: 10-30-2023 Non-patient / Non-visit [facility] Work Phone: Start: 10-20-2023 End: 10-20-2023 ambulatory Anthony SCRUGGS Facility: [facility] Start: 10-20-2023 End: 10-20-2023 Patient encounter procedure Anthony SCRUGGS [facility] Start: 10-09-2023 Non-patient / Non-visit [facility] Work Phone: Start: 09-28-2023 End: 09-28-2023 ambulatory PABLO CHRISTINA Not Available Start: 09-12-2023 End: 09-12-2023 Patient encounter procedure [facility] Work Phone: Start: 09-06-2023 Non-patient / Non-visit [facility] Work Phone: Start: 08-28-[address] LOGISTICS ANALYTICS MANAGER-SALES CORRESPONDENT Work Phone: [facility] Start: 08-28-[address]amboo [address] LOGISTICS ANALYTICS MANAGER-SALES CORRESPONDENT Work Phone: [facility] Start: 08-28-2023 End: 08-28-2023 Patient encounter procedure Long Juárezer LOGISTICS ANALYTICS MANAGER-SALES CORRESPONDENT Work Phone: [facility] Comment on above: Neoplasm of unspecif ied behavior of bone, soft tissue, and skin; Actinic keratosis Start: 08-28-2023 End: 08-28-2023 ambulatory LONG JUÁREZER Not Available Start: 08-24-2023 End: 08-24-2023 ambulatory Jamar Fall Other [employer] Other Start: 08-24-2023 Patient encounter procedure Jamar Fall [facility] Start: 08-04-2023 End: 08-04-2023 ambulatory Jamar Fall Other [employer] Other Start: 08-04-2023 Telephone encounter Jamar EDMONDS G [facility] Start: 06-22-2023 End: 06-22-2023 ambulatory [facility] Start: 06-05-2023 Telephone encounter Jamar Serrano [facility] Start: 06-05-2023 End: 06-05-2023 ambulatory EMELINA Craig [facility] [employer] Other Start: 05-30-2023 End: 05-30-2023 ambulatory Jamar Fall Other [employer] Other Start: 05-30-2023 Office outpatient vi sit 15 minutes Jamar Fall [facility] Start: 05-01-2023 End: 05-01-2023 ambulatory Jamar Fall Other [employer] Other Start: 05-01-2023 Office outpatient vi sit 15 minutes Jamar Fall [facility] Start: 04-27-2023 Telephone encounter Jamar EDMONDS G [facility] Start: 04-27-2023 End: 04-27-2023 ambulatory [facility] [place] Work Phone: Hematology/Oncology Comment on above: Malignant neoplasm o f prostate (HCC) (Primary Dx) Malignant neoplasm o f prostate (HCC) (Primary Dx); 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 pectoris, unspecified vessel or lesion type; Essential hypertension; Type 2 diabetes mellitus without complication, without long-term current use of insulin (HCC) Start: 04-27-2023 End: 04-27-2023 Patient encounter procedure Christo Howard APRN.CNP Work Phone: [facility] Start: 04-25-2023 End: 04-25-2023 ambulatory Jamar Fall Other [employer] Other Start: 04-25-2023 Telephone encounter Jamar EDMONDS G [facility] Start: 04-18-2023 End: 04-18-2023 ambulatory Jamar Fall Other [employer] Other Start: 04-18-2023 Telephone encounter Jamar EDMONDS G [facility] Start: 04-17-2023 End: 04-17-2023 Patient encounter procedure Anthony SCRUGGS [facility] Start: 04-12-2023 End: 04-12-2023 ambulatory Jamar Fall Other [employer] Other Start: 04-12-2023 Telephone encounter Jamar EDMONDS G [facility] Start: 04-06-2023 End: 04-06-2023 ambulatory Jamar Fall Other [employer] Other Start: 04-06-2023 Telephone encounter Jamar EDMONDS G [facility] Start: 04-05-2023 End: 04-05-2023 ambulatory Jamar Fall Other [employer] Other Start: 04-05-2023 Office outpatient vi sit 15 minutes Jamar Fall [facility] Start: 04-05-2023 Telephone encounter Jamar EDMONDS G [facility] Start: 03-15-2023 End: 03-15-2023 ambulatory Jamar Fall Other [employer] Other Start: 03-15-2023 Office outpatient vi sit 25 minutes Jamar Fall [facility] Start: 02-05-2023 End: 02-05-2023 ambulatory Jamar Fall Other [employer] Other Start: 02-05-2023 Telephone encounter Jamar EDMONDS G [facility] Start: 02-02-2023 End: 02-02-2023 ambulatory [facility] [place] Work Phone: Hematology/Oncology Comment on above: Malignant neoplasm o f prostate (HCC) (Primary Dx) Start: 02-02-2023 End: 02-02-2023 Patient encounter procedure Marco A Esqueda MD Work Phone: [employer] Start: 11-15-2022 End: 11-15-2022 ambulatory Jamar Fall Other [employer] Other Start: 11-15-2022 Encounter by [employer] Jamar Fall [facility] Start: 11-11-2022 End: 11-11-2022 ambulatory Jamar Fall Other [employer] Other Start: 11-11-2022 Encounter by [employer] Jamar Fall [facility] Start: 11-10-2022 End: 11-10-2022 ambulatory [facility] [place] Work Phone: Hematology/Oncology Comment on above: Malignant neoplasm o f prostate (HCC) (Primary Dx) Malignant neoplasm o f prostate (HCC) (Primary Dx); 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 pectoris, unspecified vessel or lesion type; Essential hypertension; Type 2 diabetes mellitus without complication, without long-term current use of insulin (HCC) Start: 11-10-2022 End: 11-10-2022 Patient encounter procedure Christo Howard APRN.CNP Work Phone: [facility] Start: 10-25-2022 End: 10-26-[address] ANTHONY SCRUGGS . Facility: Start: 09-16-2022 End: 09-16-2022 ambulatory Jamar Fall Other [employer] Other Start: 09-16-2022 Office outpatient vi sit 15 minutes Jamar Fall [facility] Start: 09-09-2022 End: 09-09-2022 ambulatory Jamar Fall Other [employer] Other Start: 09-09-2022 Patient encounter procedure Jamar Fall [facility] Start: 09-05-2022 End: 09-06-2022 ambulatory NONE LISTED REQUEST Facility: Start: 08-11-2022 End: 08-11-2022 ambulatory Lab/[facility]ella Work Phone: Hematology/Oncology Comment on above: Malignant neoplasm o f prostate (HCC) (Primary Dx) Malignant neoplasm o f prostate (HCC) (Primary Dx); Bone metastasis (HCC); 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 pectoris, unspecified vessel or lesion type; Essential hypertension; Type 2 diabetes mellitus without complication, without long-term current use of insulin (HCC) Start: 08-11-2022 End: 08-11-2022 Patient encounter procedure Marco A Esqueda MD Work Phone: [facility] Start: 07-21-2022 End: 07-22-[address] JAMAR FALL [employer] Other Start: 07-21-2022 Office outpatient vi sit 15 minutes Jamar Fall [facility] Start: 07-21-2022 Patient encounter procedure Jamar Fall [facility] Start: 07-21-2022 Telephone encounter Jamar Fall [facility] Start: 05-27-2022 End: 05-28-2022 ambulatory NONE LISTED REQUEST Facility:[facility]1 Start: 05-13-2022 End: 05-13-2022 Patient encounter procedure Anthony SCRUGGS [facility] Start: 05-12-2022 End: 05-12-2022 Patient encounter procedure Zach Khan MD Work Phone: Radiation Oncology Comment on above: Malignant neoplasm o f prostate (HCC) (Primary Dx) Start: 05-12-2022 End: 05-12-2022 ambulatory Lab[facility] [place] Work Phone: Hematology/Oncology Comment on above: Malignant [...] Start: 11-18-2021 End: 11-18-2021 ambulatory Lab/[facility] Him[facility] [place] Work Phone: Hematology/Oncology Comment on above: Malignant neoplasm o f prostate (HCC) (Primary Dx) Start: 11-11-2021 End: 11-11-2021 ambulatory Marco A Esqueda MD Work Phone: Hematology/Oncology Comment on above: Malignant neoplasm o f prostate (HCC) (Primary Dx); Bone metastasis (HCC) Start: 11-11-2021 End: 11-11-2021 Patient encounter procedure Marco A Esqueda MD Work Phone: [place] Start: 11-10-2021 Telephone encounter Clementine steinberg RN Work Phone: Hematology/Oncology Comment on above: Care Coordination (M edication Update) Start: 11-09-2021 Telephone encounter Clementine steinberg RN Work Phone: Hematology/Oncology Comment on above: Care Coordination (M edication Start Date - Enzalutamide) Start: 11-08-2021 End: 11-08-2021 Patient encounter procedure Anthony SCRUGGS [facility] Start: 11-05-2021 End: 11-06-[address] MARCO A ESQUEDA Facility: Start: 11-04-2021 ambulatory Clementine lee RN Work Phone: Hematology/Oncology Comment on above: Oral Anti-cancer Age nt Education (Enzalutamide) Start: 11-04-2021 Telephone encounter Aida Coles [facility] Work Phone: Hematology/Oncology Comment on above: [...] 07-22-2021 Adult health examination Bam Fall Other [employer] Other Procedures Date Procedure Procedure Detail Performing Clinician Start: 08-28-2023 CRYOTHERAPY SKIN LESION Long Galo Rajeev LOGISTICS ANALYTICS MANAGER-SALES CORRESPONDENT Work Phone: Start: 08-28-2023 SKIN / NAIL BIOPSY Windy Galo Rajeev LOGISTICS ANALYTICS MANAGER-SALES CORRESPONDENT Work Phone: Start: 07-17-2023 Decompression of med anthony nerve Anthony SCRUGGS Start: 10-25-[address] JESE FALL Comment on above: Performed By: #### P SAD #### [facility] [address] [place], [place] [address] Dr. Bharati Aguiar Start: 05-05-[address] JESE FALL Comment on above: Performed By: #### P SAD ####[facility] [id number] [place], [place] [address]KbDr. Bharati Aguiar Start: 02-16-2022 Adult depression scr [...] studies Pancho SCRUGGS Start: 03-27-2006 Cystoscopy Anthony ROBBIN CHAVEZ Start: 08-26-2005 Cystoscopy Anthony CHAVEZ Start: 09-02-2002 Cystoscopy Anthony CHAVEZ Appendectomy Anthony SCRUGGS Colonoscopy Anthony SCRUGGS Depression screening Reddy Fall Other Plan of Treatment Date Care Activity Detail Author Start: 04-25-2034 Urine microalbumin profile DTaP,Tdap,Td Vaccine (6 - Td or Tdap) [facility] Start: 08-01-2027 Diabetes Screening Diabetes Screening [facility] Start: 05-03-2027 Diabetes Screening Diabetes Screening [facility] Start: 01-24-2027 Diabetes Screening Diabetes Screening [facility] Start: 10-29-2026 Diabetes Screening Diabetes Screening [facility] Start: 04-24-2026 Diabetes Screening Diabetes Screening [facility] Start: 02-02-2026 DIABETES SCREEN DIABETES SCREEN [facility] Start: 11-10-2025 DIABETES SCREEN DIABETES SCREEN [facility] Start: 08-11-2025 DIABETES SCREEN DIABETES SCREEN [facility] Start: 05-12-2025 DIABETES SCREEN DIABETES SCREEN [facility] Start: 02-17-2025 DIABETES SCREEN DIABETES SCREEN [facility] Start: 11-11-2024 DIABETES SCREEN DIABETES SCREEN [facility] Start: 11-07-2024 End: 11-07-2024 Follow-up encounter Hematology/Oncology Comment on above: 3 month lab follow up with xgeva inj Start: 11-06-2024 End: 02-05-2025 CBC W Auto Differential panel - Blood COMPLETE BLOOD COUNT AND DIFFERENTIAL Lab Routine Malignant neoplasm of prostate (HCC) Essential hypertension 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 pectoris, unspecified vessel or lesion type Type 2 diabetes mellitus without complication, without long-term current use of insulin (HCC) Expected: 11/06/2024, Expires: 02/05/2025 [facility] Work Phone: Comment on above: Expected: 11/06/2024, Expires: Start: 11-06-2024 End: 02-05-2025 Comprehensive metabolic 2000 panel - Serum or Plasma COMPREHENSIVE METABOLIC PANEL Lab Routine Malignant neoplasm of prostate (HCC) Essential hypertension 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 pectoris, unspecified vessel or lesion type Type 2 diabetes mellitus without complication, without long-term current use of insulin (HCC) Expected: 11/06/2024, Expires: 02/05/2025 [facility] Comment on above: Expected: 11/06/2024, Expires: Start: 11-06-2024 End: 02-05-2025 Prostate specific Ag [Mass/volume] in Serum or Plasma PROSTATE-SPECIFIC ANTIGEN DIAGNOSTIC Lab Routine Malignant neoplasm of prostate (HCC) Essential hypertension 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 pectoris, unspecified vessel or lesion type Type 2 diabetes mellitus without complication, without long-term current use of insulin (HCC) Expected: 11/06/2024, Expires: 02/05/2025 [facility] Comment on above: Expected: 11/06/2024, Expires: Start: 10-31-2024 End: 10-31-2024 Patient encounter procedure 10/31/2024 9:00 AM EDT Office Visit [facility] [address] [place] [address] [place] [address] lab [facility] Comment on above: lab Start: 10-25-2024 Covid-19 Vaccine ( season) Covid-19 Vaccine () [facility] Start: 08-08-2024 End: 08-08-2024 Follow-up encounter Hematology/Oncology Comment on above: 3 month lab follow up with xgeva inj Start: 08-01-2024 End: 08-01-2024 Patient encounter procedure 08/01/2024 9:00 AM EST Office Visit [facility] [address] [place] [address] 3 month labs [facility] Comment on above: 3 month labs Start: 07-17-2024 Advance Directive Discussion Advance Directive Discussion [facility] Start: 05-09-2024 End: 05-09-2024 Follow-up encounter Hematology/Oncology Comment on above: 3 month lab follow up with xgeva inj Start: 05-07-2024 End: 05-07-2024 Patient encounter procedure 05/07/2024 9:00 AM EDT Office Visit [facility] [address] [place] [address] 3 month lab follow up with xgeva inj [facility] Comment on above: 3 month lab follow up with xgeva inj Start: 05-03-2024 End: 05-03-2024 Patient encounter procedure 05/03/2024 9:00 AM EDT Office Visit [facility] [address] [place] [address] 3 month lab follow up with xgeva inj [facility] Comment on above: 3 month lab follow up with xgeva inj Start: 04-29-2024 End: 07-29-2024 CBC W Auto Differential panel - Blood COMPLETE BLOOD COUNT AND DIFFERENTIAL Lab Routine Malignant neoplasm of prostate (HCC) Expected: 04/29/2024, Expires: 07/29/2024 [facility] Work Phone: Comment on above: Expected: 04/29/2024, Expires: Start: 04-29-2024 End: 07-29-2024 Comprehensive metabolic 2000 panel - Serum or Plasma COMPREHENSIVE METABOLIC PANEL Lab Routine Malignant neoplasm of prostate (HCC) Expected: 04/29/2024, Expires: 07/29/2024 [facility] Comment on above: Expected: 04/29/2024, Expires: Start: 04-29-2024 End: 07-29-2024 Prostate specific Ag [Mass/volume] in Serum or Plasma PROSTATE-SPECIFIC ANTIGEN DIAGNOSTIC Lab Routine Malignant neoplasm of prostate (HCC) Expected: 04/29/2024, Expires: 07/29/2024 [facility] Comment on above: Expected: 04/29/2024, Expires: 5 Start: 03-17-2024 Covid-19 Vaccine () Covid-19 Vaccine () [facility] Start: 03-17-2024 Influenza [facility] Start: 02-26-2024 End: 02-26-2024 Patient encounter procedure 02/26/2024 10:10 AM EDT Office Visit [facility] [address] [place] [address] Long Boo APRN-SALES CORRESPONDENT [address] [place] [address] [facility] Start: 11-03-2023 End: 02-02-2024 CBC W Auto Differential panel - Blood COMPLETE BLOOD COUNT AND DIFFERENTIAL Lab Routine Malignant neoplasm of prostate (HCC) Essential hypertension 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 pectoris, unspecified vessel or lesion type Type 2 diabetes mellitus without complication, without long-term current use of insulin (HCC) Lesion of skin of right ear Abdominal discomfort Expected: 11/03/2023, Expires: 02/02/2024 [facility] Work Phone: Comment on above: Expected: 11/03/2023, Expires: Start: 11-03-2023 End: 02-02-2024 Comprehensive metabolic 2000 panel - Serum or Plasma COMPREHENSIVE METABOLIC PANEL Lab Routine Malignant neoplasm of prostate (HCC) Essential hypertension 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 pectoris, unspecified vessel or lesion type Type 2 diabetes mellitus without complication, without long-term current use of insulin (HCC) Lesion of skin of right ear Abdominal discomfort Expected: 11/03/2023, Expires: 02/02/2024 [facility] Work Phone: Comment on above: Expected: 11/03/2023, Expires: Start: 11-03-2023 End: 02-02-2024 Prostate specific Ag [Mass/volume] in Serum or Plasma PROSTATE-SPECIFIC ANTIGEN DIAGNOSTIC Lab Routine Malignant neoplasm of prostate (HCC) Essential hypertension 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 pectoris, unspecified vessel or lesion type Type 2 diabetes mellitus without complication, without long-term current use of insulin (HCC) Lesion of skin of right ear Abdominal discomfort Expected: 11/03/2023, Expires: 02/02/2024 [facility] Work Phone: Comment on above: Expected: 11/03/2023, Expires: Start: 08-28-2023 End: 08-28-2023 Patient encounter procedure 08/28/2023 11:25 AM EST Office Visit [facility] [address] [place] [id number] Long Boo APRN-SALES CORRESPONDENT [address] [place] [address] Arrived [facility] Comment on above: Arrived Start: 07-28-2023 End: 09-27-2023 CBC W Auto Differential panel - Blood CBC + DIFF Lab Routine Malignant neoplasm of prostate (HCC) 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 pectoris, unspecified vessel or lesion type Essential hypertension Type 2 diabetes mellitus without complication, without long-term current use of insulin (HCC) Expected: 07/28/2023, Expires: 09/27/2023 [facility] Work Phone: Comment on above: Expected: 07/28/2023, Expires: Start: 07-28-2023 End: 09-27-2023 Comprehensive metabolic 2000 panel - Serum or Plasma COMP METABOLIC PANEL Lab Routine Malignant neoplasm of prostate (HCC) 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 pectoris, unspecified vessel or lesion type Essential hypertension Type 2 diabetes mellitus without complication, without long-term current use of insulin (HCC) Expected: 07/28/2023, Expires: 09/27/2023 [facility] Work Phone: Comment on above: Expected: 07/28/2023, Expires: Start: 07-28-2023 End: 09-27-2023 Prostate specific Ag [Mass/volume] in Serum or Plasma PSA/PROSTSPECAG DIAG Lab Routine Malignant neoplasm of prostate (HCC) 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 pectoris, unspecified vessel or lesion type Essential hypertension Type 2 diabetes mellitus without complication, without long-term current use of insulin (HCC) Expected: 07/28/2023, Expires: 09/27/2023 [facility] Work Phone: Comment on above: Expected: 07/28/2023, Expires: Start: 07-17-2023 Advance Directive Discussion Advance Directive Discussion [facility] Start: 07-17-2023 Behavioral Health Screening Behavioral Health Screening [facility] Start: 06-19-2023 Urine microalbumin profile [facility] Start: 05-03-2023 End: 07-03-2023 Basic metabolic 2000 panel - Serum or Plasma BASIC METABOLIC PNL Lab Routine Malignant neoplasm of prostate (HCC) Expected: 05/03/2023 (Approximate), Expires: 07/03/2023 [facility] Work Phone: Comment on above: Expected: 05/03/2023 (Approximate), Expi res: 07/03/2023 Start: 05-03-2023 End: 07-03-2023 CBC W Auto Differential panel - Blood CBC + DIFF Lab Routine Malignant neoplasm of prostate (HCC) Expected: 05/03/2023 (Approximate), Expires: 07/03/2023 [facility] Work Phone: Comment on above: Expected: 05/03/2023 (Approximate), Expi res: 07/03/2023 Start: 05-03-2023 End: 07-03-2023 Prostate specific Ag [Mass/volume] in Serum or Plasma PSA/PROSTSPECAG DIAG Lab Routine Malignant neoplasm of prostate (HCC) Expected: 05/03/2023 (Approximate), Expires: 07/03/2023 [facility] Work Phone: Comment on above: Expected: 05/03/2023 (Approximate), Expi res: 07/03/2023 Start: 05-03-2023 End: 07-03-2023 Testosterone [Mass/volume] in Serum or Plasma TESTOSTERONE TOTAL Lab Routine Malignant neoplasm of prostate (HCC) Expected: 05/03/2023 (Approximate), Expires: 07/03/2023 [facility] Work Phone: Comment on above: Expected: 05/03/2023 (Approximate), Expi res: 07/03/2023 Start: 03-17-2023 Covid-19 Vaccine () Covid-19 Vaccine () [facility] Start: 03-17-2023 Influenza vaccination [facility] Start: 02-16-2023 Adult depression screening assessment DEPRESSION SCREENING [facility] Start: 02-09-2023 End: 04-11-2023 CBC W Auto Differential panel - Blood CBC + DIFF Lab Routine Malignant neoplasm of prostate (HCC) 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 pectoris, unspecified vessel or lesion type Essential hypertension Type 2 diabetes mellitus without complication, without long-term current use of insulin (HCC) Expected: 02/09/2023, Expires: 04/11/2023 [facility] Work Phone: Comment on above: Expected: 02/09/2023, Expires: Start: 02-09-2023 End: 04-11-2023 Comprehensive metabolic 2000 panel - Serum or Plasma COMP METABOLIC PANEL Lab Routine Malignant neoplasm of prostate (HCC) 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 pectoris, unspecified vessel or lesion type Essential hypertension Type 2 diabetes mellitus without complication, without long-term current use of insulin (HCC) Expected: 02/09/2023, Expires: 04/11/2023 [facility] Work Phone: Comment on above: Expected: 02/09/2023, Expires: Start: 02-09-2023 End: 04-11-2023 Prostate specific Ag [Mass/volume] in Serum or Plasma PSA/PROSTSPECAG DIAG Lab Routine Malignant neoplasm of prostate (HCC) 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 pectoris, unspecified vessel or lesion type Essential hypertension Type 2 diabetes mellitus without complication, without long-term current use of insulin (HCC) Expected: 02/09/2023, Expires: 04/11/2023 [facility] Work Phone: Comment on above: Expected: 02/09/2023, Expires: 3 Start: 11-10-2022 Adult depression screening assessment DEPRESSION SCREENING [facility] Start: 08-22-2022 COVID-19 VACCINE (6 - Moderna series) COVID-19 VACCINE (6 - Moderna series) [facility] Start: 07-17-2022 ADVANCE DIRECTIVE DISCUSSION ADVANCE DIRECTIVE DISCUSSION [facility] Start: 07-17-2022 DEPRESSION ASSESSMENT DEPRESSION ASSESSMENT [facility] Start: 05-03-2022 Adult depression screening assessment DEPRESSION SCREENING [facility] Start: 05-03-2022 End: 07-03-2022 CBC W Auto Differential panel - Blood CBC + DIFF Lab Routine Malignant neoplasm of prostate (HCC) Expected: 05/03/2022, Expires: 07/03/2022 [facility] Work Phone: Comment on above: Expected: 05/03/2022, Expires: 2 Start: 05-03-2022 End: 07-03-2022 Comprehensive metabolic 2000 panel - Serum or Plasma COMP METABOLIC PANEL Lab Routine Malignant neoplasm of prostate (HCC) Expected: 05/03/2022, Expires: 07/03/2022 [facility] Work Phone: Comment on above: Expected: 05/03/2022, Expires: 2 Start: 05-03-2022 End: 07-03-2022 Prostate specific Ag [Mass/volume] in Serum or Plasma PSA/PROSTSPECAG DIAG Lab Routine Malignant neoplasm of prostate (HCC) Expected: 05/03/2022, Expires: 07/03/2022 [facility] Work Phone: Comment on above: Expected: 05/03/2022, Expires: 2 Start: 03-17-2022 Influenza vaccination [facility] Start: 11-02-2021 End: 01-02-2022 CBC W Auto Differential panel - Blood CBC + DIFF Lab Routine Malignant neoplasm of prostate (HCC) Expected: 11/02/2021, Expires: 01/02/2022 [facility] Work Phone: Comment on above: Expected: 11/02/2021, Expires: 2 Start: 11-02-2021 End: 01-02-2022 Comprehensive metabolic 2000 panel - Serum or Plasma COMP METABOLIC PANEL Lab Routine Malignant neoplasm of prostate (HCC) Expected: 11/02/2021, Expires: 01/02/2022 [facility] Work Phone: Comment on above: Expected: 11/02/2021, Expires: 2 Start: 09-14-2021 COVID-19 VACCINE (5 - Booster) COVID-19 VACCINE (5 - Booster) [facility] Start: 08-17-2021 COVID-19 VACCINE (4 - Booster for Moderna series) COVID-19 VACCINE (4 - Booster for Moderna series) [facility] Start: 07-17-2021 ADVANCE DIRECTIVE DISCUSSION ADVANCE DIRECTIVE DISCUSSION [facility] Start: 07-17-2021 DEPRESSION ASSESSMENT DEPRESSION ASSESSMENT [facility] Start: 02-22-2021 COVID-19 VACCINE (3 - Booster for Moderna series) COVID-19 VACCINE (3 - Booster for Moderna series) [facility] Start: 06-07-2015 PNEUMOVAX AGE 65 AND OVER WITH 5YR LOOKBACK (#1) PNEUMOVAX AGE 65 AND OVER WITH 5YR LOOKBACK (#1) [facility] Start: 06-20-2013 Urine microalbumin profile DTAP,TDAP,TD (1 - Tdap) [facility] Start: 08-22-2012 SHINGRIX VACCINE (2 of 3) SHINGRIX VACCINE (2 of 3) [facility] Start: 2006 RSV Vaccine (1 - 1-dose 60+ series) RSV Vaccine (1 - 1-dose 60+ series) [facility] Start: 02-14-1996 SHINGRIX VACCINE (1 of 2) SHINGRIX VACCINE (1 of 2) [facility] Start: 1991 COLOGUARD (FIT-DNA) COLOGUARD (FIT-DNA) [facility] Start: 1991 Colonoscopy COLONOSCOPY [facility] Start: 1991 COLORECTAL CANCER SCREENING COLORECTAL CANCER SCREENING [facility] Start: [address] COLONOGRAPHY [facility] Start: 1991 DIABETES SCREEN DIABETES SCREEN [facility] Start: 1991 FECAL OCCULT BLOOD FECAL OCCULT BLOOD [facility] Start: 1991 SIGMOIDOSCOPY SIGMOIDOSCOPY [facility] Start: 1981 LIPID SCREEN LIPID SCREEN [facility] Start: 02-14-1964 Anxiety Screening Anxiety Screening [facility] Start: 02-14-1964 Depression Screening Depression Screening [facility] Start: 02-14-1964 HEPATITIS C SCREENING HEPATITIS C SCREENING [facility] Start: 02-14-1964 Hepatitis C screening Hepatitis C Screening [facility] Dermatopathology exam Dermatopat hology exam Pathology and Cytology Timed Neoplasm of unspecified behavior of bone, soft tissue, and skin Release Upon Ordering for 1 Occurrences starting 08/28/2023 [facility] Work Phone: Comment on above: Release Upon Ordering for 1 Occurrences starting 08/28/2023 MR Cervical spine WO contrast [facility] US Extremity [facility] Immunizations Immunization Date Immunization Notes Care Provider Fa cilisaúl 03-26-2024 influenza, high dose seasonal, preservative-free [facility] 05-01-2023 influenza virus vaccine, unspecified formulation [facility] 05-01-2023 influenza, high dose seasonal, preservative-free Jamar Fall Other [facility] 04-28-2022 influenza nasal, unspecified formulation Lab/[facility] Work Phone: [facility] 04-28-2022 influenza, high-dose , quadrivalent vaccine (FLUZONE HIGH DOSE QUADRIVALENT) [facility] Work Phone: [facility] 04-28-2022 influenza, high dose seasonal, preservative-free Jamar Fall Other [facility] 04-28-2022 influenza virus vaccine, unspecified formulation Lab/[facility] Work Phone: [facility] 04-21-2022 COVID-19 booster vaccine, age 12+ yr, bivalent (MODERNA) [facility] Work Phone: [facility] Comment on above: Result Comment: 2023: [id number] 01-21-2022 COVID-19 Vaccine Moderna - Documentation Purposes Only Jamar Juan David Other [facility] Comment on above: Result Comment: 2023: [id number] 05-17-2021 COVID-19 Vaccine Moderna - Documentation Purposes Only Jamar Fall Other [facility] Comment on above: Result Comment: 2023: [id number] 04-22-2021 influenza virus vaccine, split virus (incl. purified surface antigen) Jamar Juan David Other [facility] 04-22-2021 influenza virus vaccine, unspecified formulation [facility] 04-16-2021 influenza nasal, unspecified formulation Marco A Esqueda MD Work Phone: [facility] 04-16-2021 influenza virus vaccine, unspecified formulation Anthony SCRUGGS [facility] 09-22-2020 COVID-19 Vaccine Moderna - Documentation Purposes Only Jamar Fall Other [facility] 08-26-2020 SARS-CoV-2 (COVID-19 ) Ad26 vaccine, recombinant Anthony SCRUGGS [facility] 08-24-2020 COVID-19 original vaccine, full dose, monovalent (MODERNA) [facility] Work Phone: [facility] 07-17-2020 SARS-CoV-2 (COVID-19 ) mRNA-[id number] vaccine Anthony SCRUGGS [facility] Comment on above: Result Comment: pt d oes not know the dates but states that he is fully vaccinated 04-23-2020 influenza virus vaccine, split virus (incl. purified surface antigen) Jamar Fall Other [facility] 04-23-2020 influenza virus vaccine, unspecified formulation [facility] 04-22-2019 influenza virus vaccine, split virus (incl. purified surface antigen) Jamar Fall Other [facility] 04-22-2019 influenza virus vaccine, unspecified formulation [facility] 04-16-2019 influenza nasal, unspecified formulation Marco A Esqueda MD Work Phone: [facility] 08-20-2018 zoster vaccine recombinant Marco A Esqueda MD Work Phone: [facility] 06-11-2018 zoster vaccine recombinant Marco A Esqueda MD Work Phone: [facility] 04-16-2018 influenza nasal, unspecified formulation Marco A Esqueda MD Work Phone: [facility] 03-27-2018 AS03 adjuvant [facility] Work Phone: [facility] 03-27-2018 influenza nasal, unspecified formulation [facility] Work Phone: [facility] 03-27-2018 influenza virus vaccine, split virus (incl. purified surface antigen) Jamar Fall Other [employer] Other 03-27-2018 influenza virus vaccine, unspecified formulation Anthony SCRUGGS [facility] 03-27-2018 Seasonal trivalent influenza vaccine, adjuvanted, preservative free Marco A Esqueda MD Work Phone: [facility] 06-12-2017 pneumococcal polysaccharide vaccine, 23 valent Marco A Esqueda MD Work Phone: [facility] 06-01-2017 pneumococcal polysaccharide vaccine, 23 valent Jamar Fall Other [facility] 06-01-2017 Prevnar 20 Jamar Fall Other [facility] 05-31-2017 influenza nasal, unspecified formulation [facility] [employer] Work Phone: [facility] 05-31-2017 influenza virus vaccine, unspecified formulation Anthony SCRUGGS [facility] 05-31-2017 influenza, injectabl e, quadrivalent, preservative free Marco A Esqueda MD Work Phone: [facility] 04-03-2017 influenza nasal, unspecified formulation [facility] Work Phone: [facility] 04-03-2017 influenza virus vaccine, split virus (incl. purified surface antigen) Jamar Fall Other [employer] Other 04-03-2017 influenza virus vaccine, unspecified formulation Anthony KAEL [facility] 04-03-2017 influenza, high dose seasonal, preservative-free Marco A Esqueda MD Work Phone: [facility] 03-23-2017 influenza nasal, unspecified formulation Marco A Esqueda MD Work Phone: [facility] 04-01-2016 influenza virus vaccine, split virus (incl. purified surface antigen) Jamar Fall Other [facility] 04-01-2016 influenza virus vaccine, unspecified formulation [facility] 03-31-2016 influenza nasal, unspecified formulation Marco A Esqueda MD Work Phone: [facility] 05-11-2015 influenza nasal, unspecified formulation Marco A Esqueda MD Work Phone: [facility] 05-11-2015 influenza, seasonal, injectable, preservative free [facility] Work Phone: [facility] 05-11-2015 pneumococcal conjuga te vaccine, 13 valent Marco A Esqueda MD Work Phone: [facility] 04-29-2015 pneumococcal polysaccharide vaccine, 23 valent Marco A Esqueda MD Work Phone: [facility] 06-09-2014 influenza nasal, unspecified formulation [facility] Work Phone: [facility] 06-09-2014 influenza, seasonal, injectable, preservative free Marco A Esqueda MD Work Phone: [facility] 06-19-2013 diphtheria, tetanus toxoids and acellular pertussis vaccine, unspecified formulation Marco A Esqueda MD Work Phone: [facility] 06-19-2013 tetanus and diphther ia toxoids, not adsorbed, for adult use Marco A Esqueda MD Work Phone: [facility] 05-23-2013 influenza nasal, unspecified formulation Marco A Esqueda MD Work Phone: [facility] 04-24-2013 tetanus and diphther ia toxoids, adsorbed, preservative free, for adult use (5 Lf of tetanus toxoid and 2 Lf of diphtheria toxoid) Jamar Fall Other [facility] 06-27-2012 zoster vaccine, live Marco A lake MD Work Phone: [facility] 06-11-2012 influenza nasal, unspecified formulation Marco A Esqueda MD Work Phone: [facility] 06-02-2011 influenza nasal, unspecified formulation Marco A Esqueda MD Work Phone: [facility] 06-23-2010 pneumococcal polysaccharide vaccine, 23 valent Jamar Fall Other [facility] 06-07-2010 pneumococcal polysaccharide vaccine, 23 valent Marco A Esqueda MD Work Phone: [facility] 06-07-2010 pneumococcal vaccine , unspecified formulation Marco A Esqueda MD Work Phone: [facility] 05-28-2010 influenza nasal, unspecified formulation Marco A Esqueda MD Work Phone: [facility] 01-14-2010 pneumococcal polysaccharide vaccine, 23 valent Jamar Fall Other [facility] 05-25-2009 influenza nasal, unspecified formulation Marco A Esqueda MD Work Phone: [facility] 06-09-2008 influenza nasal, unspecified formulation Marco A Esqueda MD Work Phone: [facility] 07-23-2003 influenza virus vaccine, whole virus Marco A Esqueda MD Work Phone: [facility] 01-14-2003 diphtheria, tetanus toxoids and acellular pertussis vaccine, unspecified formulation Jamar Juan David Other [facility] 01-10-2003 TD(adult) unspecifie d formulation Marco A Esqueda MD Work Phone: [facility] 07-03-2002 influenza nasal, unspecified formulation Marco A Esqueda MD Work Phone: [facility] Payers Date Payer Category Payer Private Health Insurance MMO MED ICARE SUPPLEMENT [id number] 2019 Unknown MMO MMO MEDICARE SUPPLEMENT [id number] 2019-Present [phone] [address] [place] [address] Indemnity [id number] 2019 Unknown [id number] 2011 Medicare MEDICARE MEDICAR E A AND B [id number] 2011-Present [phone] [place] [address] Medicare [id number] 2011 Medicare [id number] 1959 Medicare [id number] 1959 Self-pay 1959 Unknown [id number] 1946 Unknown [id number] 2.16.840.1.350349.3.579.2. 593 1946 Unknown [id number] 2.16.840.1.972112.3.579.2. 593 1946 Unknown [id number] 2.16.840.1.731817.3.579.2. 593 1946 Unknown [id number] 2.16.840.1.650969.3.579.2. 593 1946 Unknown [id number] 2.16.840.1.554233.3.579.2. 593 1946 Unknown [id number] 2.16.840.1.848156.3.579.2. 1259 1946 Unknown [id number] 2.16.840.1.172800.3.579.2. 1259 1946 Unknown [id number] 2.16.840.1.815841.3.579.2. 1259 1946 Unknown [id number] 2.16.840.1.104856.3.579.2. 1259 1946 Unknown [id number] 2.16.840.1.447347.3.579.2. 1259 1946 Unknown [id number] 2.16.840.1.220923.3.579.2. 727 1946 Unknown [id number] 2.16.840.1.218131.3.579.2. 727 1946 Unknown [id number] 2.16.840.1.844347.3.579.2. 727 1946 Unknown [id number] 2.16.840.1.962932.3.579.2. 727 1946 Unknown [id number] 2.16.840.1.871787.3.579.2. 196 1946 Unknown [id number] 2.16.840.1.347812.3.579.2. 196 Unknown [id number] 2.16.840.1.581910.3.579.2. 593 Unknown [id number] 2.16.840.1.728123.3.579.2. 593 Unknown [id number] 2.16.840.1.682931.3.579.2. 593 Social History Date Type Detail Facility Start: 11-08-2021 End: 08-11-2022 Tobacco smoking status MDIS Never smoked tobacco [facility] Start: 10-25-2021 End: 11-02-2023 Alcohol intake Current drinker of alcohol (finding) [facility] Start: 08-19-2014 History SDOH Alcohol Comment 1 day/wk [facility] Start: 1945 Sex Assigned At Not on file C [facility] Start: 10-18-2021 End: 05-12-2022 Exposure to SARS-CoV-2 (event) Not sure [facility] Tobacco smoking status Never [facility] Start: 02-02-2023 End: 01-31-2024 Sex Assigned At Male [facility] Start: 1945 Sex Assigned At Male C [facility] Start: 01-12-2018 End: 08-11-2022 Tobacco use and exposure Smokeless tobacco non-user [facility] Start: 02-02-2023 End: 01-31-2024 History of Social function [facility] Start: 02-11-2022 Gender identity Identifies as male gender (finding) [facility] Start: 02-11-2022 Sexual orientation Heterosexual (fin ding) [facility] How often to you hav [...] 09-06-2023 Tobacco smoking status NHIS Ex-smoker (finding) [facility] Start: 09-02-2024 Sex Male (finding) [facility] NEGATED: Highlighted rowStart: ARPITA History of tobacco use Passive smoker [facility] Medical Equipment Procedure Code Equipment Code Equipment Origin al Text Equipment Identifier Dates Start: 10-26-2021 End: 05-12-2022 Comment on above: 1 Each once daily. T o test blood sugars 1 Each once daily. T o test blood sugar Blood Sugar Diagnostic (Contour Next Test Strips) strip Start: 10-10-2023 [place]ets [place]Lancets[place]Th[place] [facility] [place]: 09-08-2023 Blood Sugar Diagnostic (Contour Next Test Strips) strip Start: 09-08-2023 End: 10-10-2023 Blood Sugar Diagnostic (Contour Next Test Strips) strip Start: 10-10-2023 [place]ets [place]Lancets[place]Thin[place] [facility] Start: 09-08-2023 Blood Sugar Diagnostic (Contour Next Test Strips) strip Start: 09-08-2023 End: 10-10-2023 Blood Sugar Diagnostic (Contour Next Test Strips) strip Start: 10-10-2023 Lancets [place]Lancets,Thin[place] [facility] Start: 09-08-2023 Blood Sugar Diagnostic (Contour Next Test Strips) strip Start: 09-08-2023 End: 10-10-2023 Functional Status Date Assessment Result Facility 04-19-2024 Functional Status N/A [facility] 10-20-2023 Functional Status N/A [facility] 04-17-2023 Functional Status N/A [facility] 05-13-2022 Functional Status N/A [facility] 08-19-2014 Are you deaf, or do you have serious difficulty hearing No 08/19/2014 10:35 AM Santiago Mills LPN No [facility] 08-19-2014 Are you blind, or do you have serious difficulty seeing, even when wearing glasses Yes 08/19/2014 10:35 AM Santiago Mills LPN Yes [facility] 08-19-2014 Do you have serious difficulty walking or climbing stairs No 08/19/2014 10:35 AM Santiago Mills LPN No [facility] 08-19-2014 Do you have difficul ty dressing or bathing No 08/19/2014 10:35 AM Santiago Mills LPN No [facility] 08-19-2014 Because of a physica l, mental, or emotional condition, do you have difficulty doing errands alone such as visiting a physician's office or shopping No 08/19/2014 10:35 AM Santiago Mills LPN No [facility] Mental Status Date Assessment Result Facility 08-19-2014 Because of a physica l, mental, or emotional condition, do you have serious difficulty concentrating, remembering, or making decisions No 08/19/2014 10:35 AM Santiago Mills LPN No [facility] Clinical Notes 07-17-2014 to 10-07-2024 Christo Howard APRN.SALES CORRESPONDENT - 08/07/2024 10:42 AM ESTTelephone Encounter - Josemanuel Ortiz - 07/25/2024 8:23 AM ESTTelephone Encounter - Josemanuel Ortiz - 07/25/2024 8:23 AM EST Note Date & Type Note Facility 10-07-2024 Note Patient Education Oncology Hormone Suppression Therapy for Prostate Cancer Hormone suppression therapy is a treatment for prostate cancer that can help slow the growth of cancer cells in the prostate gland. It is also called androgen deprivation therapy (ADT) or androgen suppression therapy. Hormone suppression therapy targets male sex hormones (androgens) in the body that help cancer cells grow. Hormone suppression therapy alone will not cure prostate cancer, but it can slow the growth of cancer cells and may shrink tumors over time. Your health care provider can help you find the best treatment that fits your lifestyle. Hormone suppression therapy may be used in the following cases: ??? When prostate cancer has spread too far to other places in the body and cannot be cured by surgery or radiation. ??? When a person has health problems that prevent the use of surgery or radiation. ??? Before radiation to help shrink the size of the cancer and make the radiation treatment more effective. ??? If the prostate cancer remains or comes back following treatment with surgery or radiation. What are the types of hormone suppression therapy? Orchiectomy Orchiectomy, also called surgical castration, is a surgery to remove one or both testicles. The testicles make the two main androgens?testosterone and dihydrotestosterone (DHT). This surgery reduces the levels of testosterone in the blood, leading to decreased androgen production. Medicine therapy Medicine therapy, also called medical or chemical castration, involves taking medicines to keep your body from making or using androgens. Medicines can do this in one of three ways: 1. Reducing androgen production by the testicles. ??? Luteinizing hormone-releasing hormone (LHRH) agonists. These medicines are injected or implanted under your skin to lower the amount of androgens that your testicles make. Depending on the medicine, they can be given monthly or up to every 3 to 6 months. If you take these medicines, you may also be prescribed other medicines to help with side effects. ??? LHRH antagonists. These medicines also work to lower the amount of androgens made in the testicles, but they work faster than LHRH agonist medicines and have less severe side effects. They are given as a monthly injection under the skin, and they are used when prostate cancer is in an advanced stage. ??? Estrogens. These medicines are female hormones that help to reduce androgen production by the testicles. Estrogens are not used as commonly as other types of hormone suppression therapy due to their side effects. However, they may be used if other treatments do not work. 2. Blocking androgen attachment throughout the body. ??? Anti-androgen medicines, also called androgen receptor antagonists, block areas on the body where androgens attach. These are pills that are usually used in combination with other types of hormone suppression therapy, like orchiectomy and other medicines. 3. Blocking androgen production throughout the body. ??? Androgen synthesis inhibitor medicines. These medicines help to stop other areas of the body from making androgens. They are taken as pills. They may be used if the prostate cancer is advanced and has not gotten better with surgery or other medicines. A steroid medicine may be given with this type of medicine to help with side effects. What are the risks? Hormone suppression therapy may cause side effects, including: ??? Hot flashes. ??? Diarrhea and nausea. ??? Itching. ??? Sexual side effects, such as: ? Decrease or lack of sexual desire. ? Decrease in size of the penis or testicles. ? Inability to get an erection (erectile dysfunction, or impotence). ? Breast tenderness or increase in breast size. ??? Fatigue. ??? Weight gain. ??? Anemia. ??? Thinning of the bones (osteoporosis) and loss of muscle mass. ??? Depression, mood swings, and trouble with thinking or focusing. Hormone suppression therapy may also increase your risk of high blood pressure, increased cholesterol levels, stroke, heart attack, or diabetes. What are the benefits? One of the main benefits of hormone suppression therapy is having additional treatment options. You may have only one type of treatment, or two or more types at the same time. Treatments may be combined to: ??? Help with side effects. ??? Treat advanced cancer. Where to find more information ??? [place] [employer]: www.cancer.org ??? [employer] [place]: www.cancer.gov Contact a health care provider if: ??? You have pain or side effects that do not get better with treatment. ??? You have trouble urinating. ??? You have new side effects that do not go away. Get help right away if: ??? You have severe chest pain. ??? You have trouble breathing. ??? You have an irregular heartbeat. ??? You have numbness or paralysis in the lower half of your body. ??? You are confused. ??? You (more content not included)... [facility] 08-07-2024 Note HNO ID: [id number] Author: CHRISTO HOWARD APRN.ALEXA Service: ? Author Type: Nurse Practitioner Type: Progress Notes Filed: 08/08/2024 12:09 Note Text: PATIENT NAME: Pablo Felix DATE: 08/08/2024 PRIMARY CARE PHYSICIAN: Dr. Jamar Fall OTHER PHYSICIANS: Dr. Anthony Scruggs, Dr. Khan, [facility] Portions of this encounter note have [...] mg 24 hr tablet Take by mouth. Ivotpzmlygbhe-Qxlktokd-Bnqulf (MULTIVITAMIN 50 PLUS) tab Take 1 tablet [...] Radical retropubic prostatectomy and bilateral pelvic lymphadenectomy ([facility]) Poorly differentiated prostatic adenocarcinoma of left [...] 1.58 10/25/2021 2.6 (more content not included)... [facility] 08-07-2024 History of Present illness Narrative PATIENT NAME: Pablo Felix DATE: 08/08/2024 PRIMARY CARE PHYSICIAN: Dr. Jamar Fall OTHER PHYSICIANS: Dr. Anthony Scruggs, Dr. Khan, [facility] Portions of this encounter note have [...] mg 24 hr tablet Take by mouth. Tsspvklnezemb-Amphuhzx-Xjaiuh (MULTIVITAMIN 50 PLUS) tab Take 1 tablet [...] Radical retropubic prostatectomy and bilateral pelvic lymphadenectomy ([facility]) Poorly differentiated prostatic adenocarcinoma of left [...] 08/01/2024 0.19 RADIOLOGY/OTHER STUDIES: 11/05/2021 CT chest/abdomen/pelvis ([facility]) Several sclerotic lesions consistent with metastatic disease. No evidence of visceral organ involvement or lymphadenopathy. 11/05/2021 Bone scan ([facility]) Multifocal osseous metastasis including the left femur at the lesser trochanter, right pubis symphysis, multiple ribs bilaterally. 01/22/2018 Nuclear bone scan ([facility]) New focal increased activity left frontal bone, left T8 vertebral body. 01/22/2018 MRI pelvis ([facility]) 4.5 cm area of T2 signal in the prostate bed. 07/24/2014 CT abdomen/pelvis [place] Diffuse prostatic enlargement with indentation [...] consistent with stage IIIC (pT2b, N0, M0), [place] 5+4 equal 9. 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 Stable on current medications. Continue per PCP/cardiology. [...] PCP with CT scan monitoring. Christo Howard APRN.SALES CORRESPONDENT CC: Dr. Anthony Scruggs I spent a total of 30 minutes on the date of the service which included preparing to see the patient, [id number] patient care, completing clinical documentation, obtaining and/or reviewing separately obtained history, performing a medically appropriate examination, counseling and educating the patient/family/caregiver, ordering medications, tests, or procedures, independently interpreting results (not separately reported), and communicating results to the patient/family/caregiver. documented in this encounter [facility] 07-25-2024 Telephone encounter Note Patient on lab schedule 08/01/24 for lab only prior to RV. Please review and place needed order. Thank you, Gabi Ortiz MLT [facility] 07-25-2024 Miscellaneous Notes Patient on lab schedule 08/01/24 for lab only prior to RV. Please review and place needed order. Thank you, Gabi Ortiz MLT documented in this encounter [facility] 06-10-2024 Evaluation note Diagnosis Onset Date Resolution Diarrhea acute June 10, 2024 2:02pm Malignant neoplasm of prostate July 17, 2014 acute June 10, 2024 2:02pm Type 2 diabetes mellitus with hyperglycemia acute May 2:02pm ASHD (arteriosclerotic heart disease) acute September 02, 2024 9:28am Cervical spondylosis acute 2024 9:28am Essential hypertension acute Fe bruary 2024 9:28am Hypercholesterolemia acute 2024 9:28am Malignant neoplasm of prostate July 17, 2014 acute September 02, 2024 9:28am Medicare annual wellness visit, subsequent acute September 02, 2024 9:28am Nonrheumatic aortic valve stenosis acute September 02, 2024 9:28am GRADY (obstructive sleep apnea) acute September 02, 2024 9:28am Type 2 diabetes mellitus with hyperglycemia acute August 9:28am [facility] Work Phone: 1(406) 113-275910-23-2024 Telephone encounter Note* Telephone Encounter - Aida Luo RPh - 05/08/2024 8:53 AM EDT This prescription confirms Pablo' re-enrollment in the Xtandi free drug program for 2024. Thank you Josh Luo PharmD, MARENOP [facility] Work Phone: 1([phone]) 115-878610-23-2024 Miscellaneous Notes* Telephone Encounter - Aida Luo RPh - 05/08/2024 8:53 AM EDT This prescription confirms Pablo' re-enrollment in the Xtandi free drug program for 2024. Thank you Josh Luo PharmD, BCOP [facility] NoteHNO ID: [id number] Author: MARCO A ESQUEDA MD Service: ? Author Type: Physician Type: Progress Notes Filed: 05/10/2024 07:40 Note Text: PATIENT NAME: Pablo Felix DATE: 05/09/2024 PRIMARY CARE PHYSICIAN: Dr. Jamar Fall OTHER PHYSICIANS: Dr. Anthony Scruggs, Dr. Khan, [facility] Portions of this encounter note have [...] mg 24 hr tablet Take by mouth. Vwihebiriptrz-Tqfnhgxy-Wzkglj (MULTIVITAMIN 50 PLUS) tab Take 1 tablet [...] Radical retropubic prostatectomy and bilateral pelvic lymphadenectomy ([facility]) Poorly differentiated prostatic adenocarcinoma of left [...] 08/11/2022 0.11 10/25/2022 0.1 (more content not included)...[facility]10-23-2024 History of Present illness Narrative* Marco A Esqueda MD - 05/08/2024 8:13 AM EDT PATIENT NAME: Pablo Felix DATE: 05/09/2024 PRIMARY CARE PHYSICIAN: Dr. Jamar Fall OTHER PHYSICIANS: Dr. Anthony Scruggs, Dr. Khan, [facility] Portions of this encounter note have [...] mg 24 hr tablet Take by mouth. Jfqeyqzcrwtzu-Vdmitvox-Xeacxm (MULTIVITAMIN 50 PLUS) tab Take 1 tablet [...] Radical retropubic prostatectomy and bilateral pelvic lymphadenectomy ([facility]) Poorly differentiated prostatic adenocarcinoma of left [...] 05/03/2024 0.18 RADIOLOGY/OTHER STUDIES: 11/05/2021 CT chest/abdomen/pelvis ([facility]) Several sclerotic lesions consistent with metastatic disease. No evidence of visceral organ involvement or lymphadenopathy. 11/05/2021 Bone scan ([facility]) Multifocal osseous metastasis including the left femur at the lesser trochanter, right pubis symphysis, multiple ribs bilaterally. 01/22/2018 Nuclear bone scan ([facility]) New focal increased activity left frontal bone, left T8 vertebral body. 01/22/2018 MRI pelvis ([facility]) 4.5 cm area of T2 signal in the prostate bed. 07/24/2014 CT abdomen/pelvis [place] Diffuse prostatic enlargement with indentation of the bladder base. Incidental 2.5 x 1 cm exophytic hypodense lesion adjacent to the pancreatic body. ASSESSMENT/PLAN: 1. Metastatic prostate cancer (HCC) - ICD9: 185, ICD10: C61 (primary diagnosis) The patient was diagnosed with early-stage high-grade prostate cancer in June 2014 (TRUS [id number]/02/2014). He underwent a radical prostatectomy on 11/05/2014. Pathology consistent with stage IIIC (pT2b, N0, M0), [place] 5+4 equal 9. 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 Stable on current medications. Continue per PCP/cardiology. [...] Anthony Scruggs documented in this encounterUniversity Hospitals [facility] Center10-04-2024 Hospital Discharge instructions Patient Education 04/19/2024 08:45:03 [...] under a microscope. This is called the [place] score and the total score can range from 6 10, indicating how likely it is that the cancer will spread (metastasize) to other parts of the body. The higher the score, the greater thelikelihood that the cancer will spread. [place] 6 or lower: This indicates that the cancer cells look similar to normal prostate cells (well differentiated). [place] 7: This indicates that the cancer cells [...] stress of having cancer. General instructions Take nhbu-aqa-kjogiwx and prescription medicines only as told by your health care provider. If you have to go to the hospital, notify your cancer specialist (oncologist). Keep all follow-up visits. This is important. Where to find more information [place] [employer]: www.cancer.org [place] Society of Clinical Oncology: www.cancer.net National Cancer [place]: www.cancer.gov Contact a health care provider if: [...] provider. Document Revised: 09/29/2021 Document Reviewed: 09/29/2021 Skai Patient Education 2023 [employer]. Follow Up Care 10/20/2023 09:58:12 With:KAEL JAMES, Anthony Lee, URL Address: [address] [place] [address]- When: Unknown [facility] 10-04-2024 NotePatient Education Oncology Prostate Cancer [...] thelikelihood that the cancer will spread. ? [place] 6 or lower: This indicates that the [...] implanted intothe prostate gla (more content not included)...[facility]09-16-2024 Telephone encounter Note* Telephone Encounter - RodneyKelsey whitehryn, [facility] - 04/01/2024 3:59 PM EDT Recd phone call from [facility] that they are unable to obtain the Xtandi 80mg tablets a thistime and requested a script for the 40 mg dosing. Order pending Josh Luo PharmD, BCOP [facility] Work Phone: [phone] Miscellaneous Notes* Telephone Encounter - Aida Luo RPh - 04/01/2024 3:59 PM EDT Recd phone call from [facility] that they are unable to obtain the Xtandi 80mg tablets a thistime and requested a script for the 40 mg dosing. Order pending Josh Luo PharmD, IDALIA documented in this encounterUniversity Hospitals Geauga Medical Center09-13-2024 NoteCoronary artery disease is stable, no concerning symptoms currently overall is doing well he is planning bilateral carpal tunnel surgery soon with Dr. Charlton. Continue GDMT-continue aspirin, Lipitor, metoprolol, and lisinopril continue risk factor modifications- heart healthy diet, regular exercise as tolerated and continue all medications.[facility] 03-29-2024 NoteHypertension is well-controlled at 127/51 Continue lisinopril/hydrochlorothiazide and metoprolol. [facility] function [facility]UnNew[facility]09-13-2024 NoteLipid abnormalities are stable continue Lipitor 40 mg daily lipid profile is well-controlled and liver function is normalUnNewark [facility] 03-29-2024 NoteReviewed echocardiogram from July 08 moderate aortic stenosis noted and reviewed echo with patient and his No concerning symptoms at this time patient would like symptoms including palpitations, lightheaded dizziness, syncope, chest pain, worsening shortness of breath and he voiced understanding Monitor with echocardiogramUnNewark Hospital09-13-2024 Note RCRI=1 points Class II Risk 6.0 % 30-day risk of , DC, or cardiac arrest From a cardiac perspective pt may proceed with carpal tunnel surgery, he is a moderate risk for a low risk surgery. She may hold aspirin 5-7 days prior and resume post op. Please monitor hemodynamics carefully and prevent any major fluid shifts.[facility]09-13-2024 NotePt is here for surgery clearance. Pt denies chest pain, sob, palpatations Review of Systems Musculoskeletal: Positive for arthritis, back pain, joint pain and myalgias. All other systems reviewed and are negative.[facility] 03-29-2024 NoteUTP CARDIOLOGY PROGRESS NOTE HPI: [...] AV stenosis and regur (more content not included)...[facility]07-19-2024 Instructions* Patient Instructions* Lynne Alarcon APRN.SALES CORRESPONDENT - 02/02/2024 11:37 AM EDT Possible signs [...] troubles swallowing, increasing confusion documented in this encounterUniversity Hospitals Geauga Medical Center07-19-2024 History of Present illness Narrative* Lynne Alarcon APRN.CNP - 02/02/2024 11:30 AM EDT PATIENT NAME: Pablo Felix DATE: February 02, 2024 PRIMARY CARE PHYSICIAN: Dr. Jamar Fall OTHER PHYSICIANS: Dr. Anthony Scruggs, Dr. Khan, [facility] This note was copied from prior [...] mg 24 hr tablet Take by mouth. Qehifuekansnc-Pqqpglij-Lubmmi (MULTIVITAMIN 50 PLUS) tab Take 1 tablet [...] Radical retropubic prostatectomy and bilateral pelvic lymphadenectomy ([facility]) Poorly differentiated prostatic adenocarcinoma of left [...] 01/25/2024 0.15 RADIOLOGY/OTHER STUDIES: 11/05/2021 CT chest/abdomen/pelvis ([facility]) Several sclerotic lesions consistent with metastatic disease. No evidence of visceral organ involvement or lymphadenopathy. 11/05/2021 Bone scan ([facility]) Multifocal osseous metastasis including the left femur at the lesser trochanter, right pubis symphysis, multiple ribs bilaterally. 01/22/2018 Nuclear bone scan ([facility]) New focal increased activity left frontal bone, left T8 vertebral body. 01/22/2018 MRI pelvis ([facility]) 4.5 cm area of T2 signal in the prostate bed. 07/24/2014 CT abdomen/pelvis ([facility] Diffuse prostatic enlargement with indentation of the bladder base. Incidental 2.5 x 1 cm exophytic hypodense lesion adjacent to the pancreatic body. ASSESSMENT/PLAN: 1. Metastatic prostate cancer (HCC) - ICD9: 185, ICD10: C61 (primary diagnosis) The patient was diagnosed with early-stage high-grade prostate cancer in June 2014 (TRUS [id number]/02/2014). He underwent a radical prostatectomy on 11/05/2014. [...] suppressed at <12. Bone scan obtained at [facility] 11/05/2021 revealed multiple bone metastases. CT [...] 414.01, ICD10: I25.10 Status post CABG 08/17/2014 ([facility]). Stable on current medications. Continue per PCP/cardiology. [...] up. Lynne Alarcon APRN.CNP Hematology/Oncology [facility] [phone] CC: Dr. Anthony Scruggs documented in this encounterUniversity Hospitals Geauga Medical Center07-19-2024 NoteHNO ID: [id number] Author: LYNNE ALARCON APRN.CNP Service: ? Author Type: Nurse Practitioner Type: Progress Notes Filed: 02/02/2024 11:37 Note Text: PATIENT NAME: Pablo Felix DATE: February 02, 2024 PRIMARY CARE PHYSICIAN: Dr. Jamar Fall OTHER PHYSICIANS: Dr. Anthony Scruggs, Dr. Khan, [facility] This note was copied from prior [...] mg 24 hr tablet Take by mouth. Qpzdfuybigyyc-Fttegggd-Skuctn (MULTIVITAMIN 50 PLUS) tab Take 1 tablet [...] Radical retropubic prostatectomy and bilateral pelvic lymphadenectomy ([facility]) Poorly differentiated prostatic adenocarcinoma of left [...] 06/17/2020 0.43 09/07/2020 0.84 (more content not included)...[facility] 11-02-2023 NoteHNO ID: [id number] Author: CHRISTO HOWARD APRN.SALES CORRESPONDENT Service: ? Author Type: Nurse Practitioner Type: Progress Notes Filed: 11/03/2023 11:11 Note Text: PATIENT NAME: Pablo Felix DATE: 11/02/2023 PRIMARY CARE PHYSICIAN: Dr. Jamar Fall OTHER PHYSICIANS: Dr. Anthony Scruggs, Dr. Khan, [facility] Portions of this encounter note have [...] mg 24 hr tablet Take by mouth. Vmqevmwlefgpd-Mdzznazd-Gbalcc (MULTIVITAMIN 50 PLUS) tab Take 1 tablet [...] Radical retropubic prostatectomy and bilateral pelvic lymphadenectomy ([facility]) Poorly differentiated prostatic adenocarcinoma of left [...] 01/21/2019 <0.13 09/26/2019 0.09 (more content not included)...[facility]04-18-2024 History of Present illness Narrative* Christo Howard APRN.SALES CORRESPONDENT - 11/02/2023 9:28 AM EDT PATIENT NAME: Pablo Felix DATE: 11/02/2023 PRIMARY CARE PHYSICIAN: Dr. Jamar Fall OTHER PHYSICIANS: Dr. Anthony Scruggs, Dr. Khan, [facility] Portions of this encounter note have [...] mg 24 hr tablet Take by mouth. Unatnxyjtybiz-Vbfimvqh-Lsdanw (MULTIVITAMIN 50 PLUS) tab Take 1 tablet [...] Radical retropubic prostatectomy and bilateral pelvic lymphadenectomy ([facility]) Poorly differentiated prostatic adenocarcinoma of left [...] 10/29/2023 0.16 RADIOLOGY/OTHER STUDIES: 11/05/2021 CT chest/abdomen/pelvis ([facility]) Several sclerotic lesions consistent with metastatic disease. No evidence of visceral organ involvement or lymphadenopathy. 11/05/2021 Bone scan ([facility]) Multifocal osseous metastasis including the left femur at the lesser trochanter, right pubis symphysis, multiple ribs bilaterally. 01/22/2018 Nuclear bone scan ([facility]) New focal increased activity left frontal bone, left T8 vertebral body. 01/22/2018 MRI pelvis ([facility]) 4.5 cm area of T2 signal in the prostate bed. 07/24/2014 CT abdomen/pelvis [place] Diffuse prostatic enlargement with indentation of the bladder base. Incidental 2.5 x 1 cm exophytic hypodense lesion adjacent to the pancreatic body. ASSESSMENT/PLAN: 1. Metastatic prostate cancer (HCC) - ICD9: 185, ICD10: C61 (primary diagnosis) The patient was diagnosed with early-stage high-grade prostate cancer in June 2014 (TRUS [id number]/02/2014). He underwent a radical prostatectomy on 11/05/2014. Pathology consistent with stage IIIC (pT2b, N0, M0), [place] 5+4 equal 9. Postop the patient's PSA [...] suppressed at <12. Bone scan obtained at [facility] 11/05/2021 revealed multiple bone metastases. CT [...] 414.01, ICD10: I25.10 Status post CABG 08/17/2014 ([facility]). Stable on current medications. Continue per PCP/cardiology. [...] would reconsider referral to GI. Christo Howard APRN.SALES CORRESPONDENT CC: Dr. Anthony Scruggs I spent a total of 30 minutes on the date of the service which included preparing to see the patient, arsb-eg-njtx patient care, completing clinical documentation, obtaining and/or reviewing separately obtained history, performing a medically appropriate examination, counseling and educating the pat ient/family/caregiver, ordering medications, tests, or procedures, independently interpreting results (not separately reported), and communicating results to the patient/family/caregiver. documented in this encounterUniversity Hospitals Geauga Medical Center04-05-2024 Hospital Discharge instructions Patient Education 10/20/2023 09:54:58 [...] greater thelikelihood that the cancer will spread. [place] 6 or lower: This indicates that the cancer cells look similar to normal prostate cells (well differentiated). [place] 7: This indicates that the cancer cells [...] stress of having cancer. General instructions Take crgl-jlu-oqumwtw and prescription medicines only as told by your health care provider. If you have to go to the hospital, notify your cancer specialist (oncologist). Keep all follow-up visits. This is important. Where to find more information [place] Cancer Society: www.cancer.org [place] Society of Clinical Oncology: www.cancer.net National Cancer [place]: www.cancer.gov Contact a health care provider if: [...] provider. Document Revised: 09/29/2021 Document Reviewed: 09/29/2021 Skai Patient Education 2022 [employer]pert. Follow Up Care 04/17/2023 09:25:02 With:KAEL JAMES, Anthony Lee, URL Address: [address] [place], [place] [id number]- When: Unknown [facility] 02-12-2024 History of Present illness Narrative* Long Boo, LOGISTICS ANALYTICS MANAGER-SALES CORRESPONDENT - 08/28/2023 11:25 AM EST Images from the original note were not included. Lesion(s) Location: right ear Duration: couple years Quality: painful, denies itch, denies bleeding Modifying factors: aggravated by picking Associated symptoms: enlarged, non-healing Treatments: none New patient, referred by Lencho Esqudea MD All pertinent medical history, medications, and [...] limited to risks of scarring, darker or cinetechnician pigmentary changes, recurrence, incomplete removal and infection. [...] biopsy results, 6 months documented in this encounterCox [id number] Evaluation note* Encounter Date Diagnosis Assessment Notes [...] retention cyst and frontal sinus mass benign [facility] [employer] Other 01-19-2024 Evaluation note* Encounter Date Diagnosis Assessment Notes Treatment Notes Treatment Clinical Notes Jul, Pancreatic mass (ICD-10 - K86.89) MRCP: 4cm mass - 2022 - previously completed E[facility] bx at [facility] - stable in size from 2021 [facility] Chief Complaint: Patient here for 1.5 year follow up CAD, hypertension, and hyperlipidemia. Had routine echo in Mar 2022, and labs in Mar 2023. Doing very well, as he denies chest pain, SOB, palpitations, and LE edema. HPI: Pablo eFlix is a 78 y.o. male With a [...] problems arise Bridger Mulligan MD, MPH, [facility], [facility], [facility] Interventional Cardiology Pager Email: [email or web address] Evaluation note* Encounter Date Diagnosis [...] ENT since scheduling appt for sinus mass [employer] Other 10-16-2023 Evaluation note* Encounter Date Diagnosis [...] malignant neoplasm of bone (ICD-10 - C79.51) [facility] [employer] Other 10-12-2023 History of Present illness Narrative* Christo Howard, ROCHELLE.SALES CORRESPONDENT - 04/27/2023 10:00 AM EDT PATIENT NAME: Pablo Felix DATE: 04/27/2023 PRIMARY CARE PHYSICIAN: Dr. Jamar Fall OTHER PHYSICIANS: Dr. Anthony Scruggs, Dr. Khan, [facility] Portions of this encounter note have [...] stomach and has underwent multiple testingper Dr. Ball. He denies any unusual bone pain. He [...] mg 24 hr tablet Take by mouth. Hgyuqbrlkqjqu-Gnqmtcjp-Kifwsx (MULTIVITAMIN 50 PLUS) tab Take 1 tablet [...] Radical retropubic prostatectomy and bilateral pelvic lymphadenectomy ([facility]) Poorly differentiated prostatic adenocarcinoma of left [...] 04/24/2023 0.12 RADIOLOGY/OTHER STUDIES: 11/05/2021 CT chest/abdomen/pelvis ([facility]) Several sclerotic lesions consistent with metastatic disease. No evidence of visceral organ involvement or lymphadenopathy. 11/05/2021 Bone scan ([facility]) Multifocal osseous metastasis including the left femur at the lesser trochanter, right pubis symphysis, multiple ribs bilaterally. 01/22/2018 Nuclear bone scan ([facility]) New focal increased activity left frontal bone, left T8 vertebral body. 01/22/2018 MRI pelvis ([facility]) 4.5 cm area of T2 signal in the prostate bed. 07/24/2014 CT abdomen/pelvis ([facility] Diffuse prostatic enlargement with indentation of the bladder base. Incidental 2.5 x 1 cm exophytic hypodense lesion adjacent to the pancreatic body. ASSESSMENT/PLAN: 1. Metastatic prostate cancer (HCC) - ICD9: 185, ICD10: C61 (primary diagnosis) The patient was diagnosed with early-stage high-grade prostate cancer in June 2014 (TRUS [id number]/02/2014). He underwent a radical prostatectomy on 11/05/2014. [...] suppressed at <12. Bone scan obtained at [facility] 11/05/2021 revealed multiple bone metastases. CT [...] 414.01, ICD10: I25.10 Status post CABG 08/17/2014 ([facility]). Stable on current medications. Continue per PCP/cardiology. [...] monitor with repeat CT scan. Christo Howard APRN.SALES CORRESPONDENT CC: Dr. Anthony Scruggs I spent a total of 30 minutes on the date of the service which included preparing to see the patient, jjny-mx-cgpd patient care, completing clinical documentation, obtaining and/or reviewing separately obtained history, performing a medically appropriate examination, counseling and educating the pat ient/family/caregiver, ordering medications, tests, or procedures, independently interpreting results (not separately reported), and communicating results to the patient/family/caregiver. documented in this encounterUniversity Hospitals Geauga Medical Center10-03-2023 Evaluation note* Encounter Date Diagnosis Assessment Notes Treatment Notes Treatment Clinical Notes Apr, Pancreatic mass (ICD-10 - K86.89) [facility] Other 10-02-2023 Hospital Discharge instructions Patient Education [...] greater thelikelihood that the cancer will spread. [place] 6 or lower: This indicates that the cancer cells look similar to normal prostate cells (well differentiated). [place] 7: This indicates that the cancer cells [...] stress of having cancer. General instructions Take eiro-wmw-zyxkrby and prescription medicines only as told by your health care provider. If you have to go to the hospital, notify your cancer specialist (oncologist). Keep all follow-up visits. This is important. Where to find more information [place] Cancer Society: www.cancer.org [place] Society of Clinical Oncology: www.cancer.net National Cancer [place]: www.cancer.gov Contact a health care provider if: [...] provider. Document Revised: 09/29/2021 Document Reviewed: 09/29/2021 Skai Patient Education 2022 [employer]pert. Follow Up Care 10/28/2022 08:37:57 With:KAEL JAMES, Anthony Lee, URL Address: [facility] [address], [place] [address] [phone] When: Unknown Comments:6 mos w/ PSA (and possible Lupron) [facility] [place] 09-27-2023 Evaluation note* Encounter Date Diagnosis Assessment Notes Treatment Notes Treatment Clinical Notes Mar, Pancreatic mass (ICD-10 - K86.89) [facility] Other 09-20-2023 Evaluation note* Encounter Date Diagnosis Assessment Notes Treatment Notes Treatment Clinical Notes Mar, Right upper quadrant abdominal pain (ICD-10 - R10.11) Diet instructions Lab to r/o acute infection, cholecystitis, pancreatitis GBUS vs CT abd based on results BLand, low fat diet Mar, Nausea (ICD-10 - R11.0) [place] , small/frequent feedings. Pepcid, Prilosec, Tums as [...] Microalbumin, Dilated eye exam and Foot exam [facility] Other 08-30-2023 Evaluation note* Encounter Date Diagnosis Assessment Notes Treatment Notes Treatment Clinical Notes Feb, ASHD (arteriosclerotic heart disease) (ICD-10 - I25.10) This patient is stable without activity related CP, dyspnea or lightheadedness. They are instructed to continue exercise and AHA diet plan. Feb, Nonrheumatic aortic valve stenosis (ICD-10 - I35.0) ECHO: [facility]OGER 1.13, Velocity 324, / - 04/2022 Asymptomatic w/o CP, tachycardia or [...] Feb, Other chronic pain (ICD-10 - G89.29) 30 Aug, 2023 Pain in right shoulder (ICD-10 - M25.511) [...] exercise for 30 minutes, 3-5 times weekly. [facility] Other 07-23-2023 Evaluation note* Encounter Date Diagnosis Assessment Notes Treatment Notes Treatment Clinical Notes Jan, Left bundle-branch block, unspecified (ICD-10 - I44.7) [facility] Other 07-20-2023 History of Present illness Narrative* Marco A Esqueda MD - 02/02/2023 7:38 AM EDT PATIENT NAME: Pablo Felix DATE: 02/02/2023 PRIMARY CARE PHYSICIAN: Dr. Jamar Fall OTHER PHYSICIANS: Dr. Anthony Scruggs, Dr. Khan, [facility] Portions of this encounter note have [...] mg 24 hr tablet Take by mouth. Epbxajzmgcxrb-Atubvvip-Aagpzk (MULTIVITAMIN 50 PLUS) tab Take 1 tablet [...] Radical retropubic prostatectomy and bilateral pelvic lymphadenectomy ([facility]) Poorly differentiated prostatic adenocarcinoma of left [...] 10/25/2022 0.13 RADIOLOGY/OTHER STUDIES: 11/05/2021 CT chest/abdomen/pelvis ([facility]) Several sclerotic lesions consistent with metastatic disease. No evidence of visceral organ involvement or lymphadenopathy. 11/05/2021 Bone scan ([facility]) Multifocal osseous metastasis including the left femur at the lesser trochanter, right pubis symphysis, multiple ribs bilaterally. 01/22/2018 Nuclear bone scan ([facility]) New focal increased activity left frontal bone, left T8 vertebral body. 01/22/2018 MRI pelvis ([facility]) 4.5 cm area of T2 signal in the prostate bed. 07/24/2014 CT abdomen/pelvis ([facility] Diffuse prostatic enlargement with indentation of the bladder base. Incidental 2.5 x 1 cm exophytic hypodense lesion adjacent to the pancreatic body. ASSESSMENT/PLAN: 1. Metastatic prostate cancer (HCC) - ICD9: 185, ICD10: C61 (primary diagnosis) The patient was diagnosed with early-stage high-grade prostate cancer in June 2014 (TRUS [id number]/02/2014). He underwent a radical prostatectomy on 11/05/2014. [...] suppressed at <12. Bone scan obtained at [facility] 11/05/2021 revealed multiple bone metastases. CT [...] 414.01, ICD10: I25.10 Status post CABG 08/17/2014 ([facility]). Stable on current medications. Continue per PCP/cardiology. [...] Anthony Scruggs documented in this encounterUniversity Hospitals Geauga Medical Center04-27-2023 History of Present illness Narrative* Christo Howard APRN.SALES CORRESPONDENT - 11/10/2022 10:00 AM EDT PATIENT NAME: Pablo Felix DATE: 11/10/2022 PRIMARY CARE PHYSICIAN: Dr. Jamar Fall OTHER PHYSICIANS: Dr. Anthony Scruggs, Dr. Khan, [facility] Portions of this encounter note have [...] mg 24 hr tablet Take by mouth. Wqrdofurazecr-Afrtupei-Kvwivn (MULTIVITAMIN 50 PLUS) tab Take 1 tablet [...] Radical retropubic prostatectomy and bilateral pelvic lymphadenectomy ([facility]) Poorly differentiated prostatic adenocarcinoma of left [...] PSA 0.13 RADIOLOGY/OTHER STUDIES: 11/05/2021 CT chest/abdomen/pelvis ([facility]) Several sclerotic lesions consistent with metastatic disease. No evidence of visceral organ involvement or lymphadenopathy. 11/05/2021 Bone scan ([facility]) Multifocal osseous metastasis including the left femur at the lesser trochanter, right pubis symphysis, multiple ribs bilaterally. 01/22/2018 Nuclear bone scan ([facility]) New focal increased activity left frontal bone, left T8 vertebral body. 01/22/2018 MRI pelvis ([facility]) 4.5 cm area of T2 signal in the prostate bed. 07/24/2014 CT abdomen/pelvis ([facility] Diffuse prostatic enlargement with indentation of the bladder base. Incidental 2.5 x 1 cm exophytic hypodense lesion adjacent to the pancreatic body. ASSESSMENT/PLAN: 1. Metastatic prostate cancer (HCC) - ICD9: 185, ICD10: C61 (primary diagnosis) The patient was diagnosed with early-stage high-grade prostate cancer in June 2014 (TRUS [id number]/02/2014). He underwent a radical prostatectomy on 11/05/2014. [...] suppressed at <12. Bone scan obtained at [facility] 11/05/2021 revealed multiple bone metastases. CT [...] 414.01, ICD10: I25.10 Status post CABG 08/17/2014 ([facility]). Stable on current medications. Continue per PCP/cardiology. [...] monitor with repeat CT scan. Christo Howard APRN.SALES CORRESPONDENT CC: Dr. Anthony Scruggs I spent a total of 30 minutes on the date of the service which included preparing to see the patient, irqh-jn-waqn patient care, completing clinical documentation, obtaining and/or reviewing separately obtained history, performing a medically appropriate examination, counseling and educating the pat ient/family/caregiver, ordering medications, tests, or procedures, independently interpreting results (not separately reported), and communicating results to the patient/family/caregiver. documented in this encounterUniversity Hospitals Geauga Medical Center03-03-2023 Evaluation note* Encounter Date Diagnosis [...] injection w/ Kenalog, may increase BS slightly [employer] Other 02-24-2023 Evaluation note* Encounter Date Diagnosis [...] Lupron along w/ additional oral chemotherapy from [facility]. Also receiving Boniva Aug, Other Personalized [...] reviewed and amended by provider signed below. [employer] Other 01-26-2023 History of Present illness Narrative* Marco A Esqueda MD - 08/11/2022 7:42 AM EST PATIENT NAME: Pablo Felix DATE: 08/11/2022 PRIMARY CARE PHYSICIAN: Dr. Jamar Fall OTHER PHYSICIANS: Dr. Anthony Scruggs, Dr. Khan, [facility] Portions of this encounter note have [...] mg 24 hr tablet Take by mouth. Lcjmeydxoeraz-Bqnbmgxf-Vifoso (MULTIVITAMIN 50 PLUS) tab Take 1 tablet [...] Radical retropubic prostatectomy and bilateral pelvic lymphadenectomy ([facility]) Poorly differentiated prostatic adenocarcinoma of left [...] 08/11/2022 PSA RADIOLOGY/OTHER STUDIES: 11/05/2021 CT chest/abdomen/pelvis ([facility]) Several sclerotic lesions consistent with metastatic disease. No evidence of visceral organ involvement or lymphadenopathy. 11/05/2021 Bone scan ([facility]) Multifocal osseous metastasis including the left femur at the lesser trochanter, right pubis symphysis, multiple ribs bilaterally. 01/22/2018 Nuclear bone scan ([facility]) New focal increased activity left frontal bone, left T8 vertebral body. 01/22/2018 MRI pelvis ([facility]) 4.5 cm area of T2 signal in the prostate bed. 07/24/2014 CT abdomen/pelvis ([facility] Diffuse prostatic enlargement with indentation of the bladder base. Incidental 2.5 x 1 cm exophytic hypodense lesion adjacent to the pancreatic body. ASSESSMENT/PLAN: 1. Metastatic prostate cancer (HCC) - ICD9: 185, ICD10: C61 (primary diagnosis) The patient was diagnosed with early-stage high-grade prostate cancer in June 2014 (TRUS [id number]/02/2014). He underwent a radical prostatectomy on 11/05/2014. Pathology consistent with stage IIIC (pT2b, N0, M0), [place] 5+4 equal 9. Postop the patient's PSA [...] suppressed at <12. Bone scan obtained at [facility] 11/05/2021 revealed multiple bone metastases. CT [...] 414.01, ICD10: I25.10 Status post CABG 08/17/2014 ([facility]). Stable on current medications. Continue per PCP/cardiology. [...] Anthony Scruggs documented in this encounterUniversity Hospitals Geauga Medical Center01-05-2023 NotePROCEDURE: XR SHOULDER LT 2V [...] Electronically authenticated by: CYNTHIA TORRES Date: 2022-07-21 15:46[id number]* Encounter Date Diagnosis Assessment Notes Treatment Notes Treatment Clinical Notes Jul, Cervical spondylosis with radiculopathy (ICD-10 - M47.22) ROM exercises, heat/ice and Tylenol 1000mg tid. Initiated Tramadol w/ caution, no driving, may cause sedation. Jul, Acute pain of left shoulder (ICD-10 - M25.512) ROM exercises, Tylenol and Tramadol as needed. Jul, Annual physical exam (ICD-10 - Z00.00) [employer] Other 10-28-2022 Hospital Discharge instructions Patient Education [...] who: Are older than age 65. Are -Swazi. Are obese. Have a family history of [...] cells. Follow these instructions at home: Take yxmu-qjv-mllcers and prescription medicines only as told by [...] 07/03/2006 Document Revised: 06/15/2018 Document Reviewed: 03/13/2017 [employer] Patient Education 2020 [employer]. Follow Up Care 11/08/2021 14:14:20 With:KAEL JAMES, Anthony Lee, URL Address: [address] [place] [address] When: Unknown [facility] 10-27-2022 Nurse Note* Sheela Toney - 05/12/2022 10:43 AM EDT AUA=2 documented in this encounterUniversity Hospitals Geauga Medical Center10-27-2022 History of Present illness Narrative* Zach Khan MD - 05/12/2022 10:41 AM EDT Radiation Oncology - Follow Up Note PATIENT NAME: Pablo Felix PATIENT DIAGNOSIS: Prostate adenocarcinoma, initial clinical stage II, initial PSA 1.07, biopsy [place] score 9(4,5), s/p prostatectomy for 11/05/14 pathologic stage IIIC [id number], [place] 9 (5, 4) now with rising PSA [...] Each once daily. To test blood sugar Ljtywwdsrhvuf-Hsmcsewh-Ewzhjv (MULTIVITAMIN 50 PLUS) tab Take 1 tablet [...] s/p prostatectomy for 11/05/14 pathologic stage IIIC [id number], [place] 9 (5, 4) withrising PSA, subsequently status [...] Zach Khan MD cc: Jamar Fall MD ([facility]) Portions of the above note extracted and edited from previous visit as well as active information included in the EMR. documented in this encounterUniversity Hospitals Geauga Medical Center10-17-2022 Miscellaneous Notes* Telephone Encounter - Sheela Toney - 05/02/2022 10:48 AM EDT Patient coming in on 05/12/22 for follow up with labs. Please add lab orders. Thanks, Sheela Toney MA documented in this encounterUniversity Hospitals Geauga Medical Center08-04-2022 History of Present illness Narrative* Marco A Esqueda MD - 02/17/2022 7:51 AM EDT PATIENT NAME: Pablo Felix DATE: 02/17/2022 PRIMARY CARE PHYSICIAN: Jamar Fall DO OTHER PHYSICIANS: Dr. Anthony Scruggs, Dr. Khan, [facility] Portions of this encounter note have [...] Each once daily. To test blood sugar Qymdfqyiwzyun-Iblrzdcl-Odyynw (MULTIVITAMIN 50 PLUS) tab Take 1 tablet [...] Radical retropubic prostatectomy and bilateral pelvic lymphadenectomy ([facility]) Poorly differentiated prostatic adenocarcinoma of left [...] PSA 0.14 RADIOLOGY/OTHER STUDIES: 11/05/2021 CT chest/abdomen/pelvis ([facility]) Several sclerotic lesions consistent with metastatic disease. No evidence of visceral organ involvement or lymphadenopathy. 11/05/2021 Bone scan ([facility]) Multifocal osseous metastasis including the left femur at the lesser trochanter, right pubis symphysis, multiple ribs bilaterally. 01/22/2018 Nuclear bone scan ([facility]) New focal increased activity left frontal bone, left T8 vertebral body. 01/22/2018 MRI pelvis ([facility]) 4.5 cm area of T2 signal in the prostate bed. 07/24/2014 CT abdomen/pelvis ([facility] Diffuse prostatic enlargement with indentation of the bladder base. Incidental 2.5 x 1 cm exophytic hypodense lesion adjacent to the pancreatic body. ASSESSMENT/PLAN: 1. Metastatic prostate cancer (HCC) - ICD9: 185, ICD10: C61 (primary diagnosis) The patient was diagnosed with early-stage high-grade prostate cancer in June 2014 (TRUS [id number]/02/2014). He underwent a radical prostatectomy on 11/05/2014. Pathology consistent with stage IIIC (pT2b, N0, M0), [place] 5+4 equal 9. Postop the patient's PSA [...] at <12. Staging scans were obtained at [facility] on 11/05/2021. Bone scan revealed multiple [...] 414.01, ICD10: I25.10 Status post CABG 08/17/2014 ([facility]). Stable on current medications. Continue per PCP/cardiology. [...] Anthony Scruggs documented in this encounterUniversity Hospitals Geauga Medical Center05-23-2022 Miscellaneous Notes* Telephone Encounter - [...] that he has the phone number to [facility]. No additional questionsnoted. Clementine Aguilar RN documented in this encounterUniversity Hospitals Geauga Medical Center04-28-2022 History of Present illness Narrative* Marco A Esqueda MD - 11/11/2021 7:42 AM EDT PATIENT NAME: Pablo Felix DATE: 11/11/2021 PRIMARY CARE PHYSICIAN: Jamar Fall DO OTHER PHYSICIANS: Dr. Anthony Scruggs, Dr. Khan, [facility] Portions of this encounter note have been copied from my note from 10/28/2021 and has been updated where appropriate, and reflect my current medical decision making from today. CC: This is a 76 year old male with recently diagnosed metastatic prostate cancer, seen for scheduled follow-up. INTERIM HISTORY: Since the patient's initial visit here he underwent staging scans at [facility] on 11/05/2021. Bone scan revealed multiple [...] Each once daily. To test blood sugar Muynnewyfppfp-Jckbpjyh-Ndqiml (MULTIVITAMIN 50 PLUS) tab Take 1 tablet [...] Radical retropubic prostatectomy and bilateral pelvic lymphadenectomy ([facility]) Poorly differentiated prostatic adenocarcinoma of left [...] PSA 2.64 RADIOLOGY/OTHER STUDIES: 11/05/2021 CT chest/abdomen/pelvis ([facility]) Several sclerotic lesions consistent with metastatic disease. No evidence of visceral organ involvement or lymphadenopathy. 11/05/2021 Bone scan ([facility]) Multifocal osseous metastasis including the left femur at the lesser trochanter, right pubis symphysis, multiple ribs bilaterally. 01/22/2018 Nuclear bone scan ([facility]) New focal increased activity left frontal bone, left T8 vertebral body. 01/22/2018 MRI pelvis ([facility]) 4.5 cm area of T2 signal in the prostate bed. 07/24/2014 CT abdomen/pelvis ([facility]) Diffuse prostatic enlargement with indentation of the bladder base. Incidental 2.5 x 1 cm exophytic hypodense lesion adjacent to the pancreatic body. ASSESSMENT/PLAN: 1. Metastatic prostate cancer (HCC) - ICD9: 185, ICD10: C61 (primary diagnosis) The patient was diagnosed with early-stage high-grade prostate cancer in June 2014 (TRUS [id number]/02/2014). He underwent a radical prostatectomy on 11/05/2014. Pathology consistent with stage IIIC (pT2b, N0, M0), [place] 5+4 equal 9. Postop the patient's PSA [...] at <12. Staging scans were obtained at [facility] on 11/05/2021. Bone scan revealed multiple [...] 414.01, ICD10: I25.10 Status post CABG 08/17/2014 ([facility]). Stable on current medications. Continue per PCP/cardiology. [...] Anthony Scruggs documented in this encounterUniversity Hospitals Geauga Medical Center04-27-2022 Miscellaneous Notes* Telephone Encounter - Clementine Aguilar RN - 11/10/2021 3:03 PM EDT Pt reports his Enzalutamide was delivered. Will start this evening. Clementine Aguilar RN documented in this encounterUniversity Hospitals Geauga Medical Center04-26-2022 Miscellaneous Notes* Telephone Encounter - Clementine Aguilar RN - 11/09/2021 2:31 PM EDT Per pt, his Enzalutamide is scheduled to arrive tomorrow morning. Patient started/will start taking Enzalutamide on 11/10/21. Clementine Aguilar RN documented in this encounterUniversity Hospitals Geauga Medical Center04-25-2022 Hospital Discharge instructions Patient Education [...] who: Are older than age 65. Are -Swazi. Are obese. Have a family history of [...] cells. Follow these instructions at home: Take nvfr-paq-vgqxwoh and prescription medicines only as told by [...] 07/03/2006 Document Revised: 06/15/2018 Document Reviewed: 03/13/2017 [employer] Patient Education 2019 [employer]. Follow Up Care 08/23/2021 13:26:07 With:KAEL JAMES, nAthony Lee, URL Address: [facility] [address] [place] [address]- [phone] When:05/10/2022 [facility] [place] 04-21-2022 Miscellaneous Notes* Telephone Encounter - Clementine Aguilar RN - 11/04/2021 2:53 PM EDT Pt would like to get the 4th Covid vaccine when it's due. Dr Esqueda notified and gives the ok to proceed when due. Pt notified and verbalizes understanding. Clementine Aguilar RN documented in this encounterUniversity Hospitals Geauga Medical Center04-21-2022 History of Present illness Narrative* [...] Information handout: Enzalutamide, Specialty Pharmacy Information : [facility] phone numbers: Yes [...] minutes Clementine Aguilar RN * Aida Luo, [facility] - 11/04/2021 2:49 PM EDT Images from the original note were not included. [facility] of Pharmacy Oncology Pharmacy Medication Education [...] Each once daily. To test blood sugar Kovlabmmeuggq-Vogihect-Xilnzl (MULTIVITAMIN 50 PLUS) tab Take 1 tablet [...] of chemotherapy NA - Followed up with [facility] for delivery of Free Xtandi Readiness [...] time (15 minute increments) with the patient Kelseyluluchaka Luo RPh documented in this encounterUniversity Hospitals Geauga Medical Center04-21-2022 Miscellaneous Notes* Telephone Encounter - Aida Luo RPh - 11/04/2021 10:54 AM EDT Confirmed with [employer] approval date 11/01/21 and that the specialty pharmacy, [facility], will reach out to Mr Felix 3-5 business days from approval date. If he does not hear from them by 11/10/21 we should call [facility] @ option 2. I informed Mr Felix of this, he has an appt 11/12/21 and said if he has not heard from them by then he will get their phone number from us. Rubin Luo RPh documented in this encounterUniversity Hospitals Geauga Medical Center04-19-2022 Miscellaneous Notes* Telephone Encounter - Jennifer Amaro - 11/02/2021 12:23 PM EDT Called pt, scheduled for education (11/04) @ 900am. * Telephone Encounter - Clementine Aguilar RN - 11/02/2021 11:57 AM EDT Clerical: Please schedule pt for education. Thank you! Clementine Aguilar, RN * Telephone Encounter - Aida Luo RP - 11/02/2021 11:41 AM EDT Approved for free Xtandi until 07/16/22. Spoke to patient and let him know to be expecting this call. [facility] will call patient to set up delivery for all fills. I do not see where he has had chemo education yet. Alba does he need to be set up with you? Thanks Rubin Luo RP * Telephone Encounter - Andreina Castillo RP - 11/01/2021 10:55 AM EDT Patient called today. We completed a conference call with [employer] - they were ableto obtain consent and [...] Monday he will complete authorization. Rubin Luo RPh * Telephone Encounter - Brina Wang RPh - 10/28/2021 4:13 PM EDT No available funding at this time. We will proceed free drug application through [employer]. Pharmacy to reach out to patient 10/29/2021 to notify. Brina Wang RPh * Telephone Encounter - Brina Wang RPh - 10/28/2021 3:08 PM EDT Ambulatory Pharmacy Prior Authorization Note Provider Intervention Required?: No- Pharmacy completed on your behalf. Drug: Xtandi Cover My Meds Carter: [id number] Determination: Approved Prior Authorization/Case #: [id number] Prior Authorization Expiration: 10/28/2022 Time to PA Submission in CMM: 15 min Time to PA Determination in CMM: Same day Additional Information: Co-Pay $3,111.12 For questions relating to this submission, please contact [facility] at [phone] documented in this encounterUniversity Hospitals Geauga Medical Center04-19-2022 Miscellaneous Notes* Telephone Encounter - Zohra Avila PA-C - 11/02/2021 12:00 PM EDT CBC and CMP orders placed Zohra Avila PA-C * Telephone Encounter - Katie Rosen MA - 11/02/2021 11:57 AM EDT Patient has an appt on 11/11/21. Would you like labs, if so place orders. Katie Rosen MA documented in this encounterUniversity Hospitals Geauga Medical Center04-18-2022 Miscellaneous Notes* Telephone Encounter - [...] him on the patient assistance program. Thanks, BRPati documented in this encounterUniversity Hospitals Geauga Medical Center04-14-2022 Miscellaneous Notes* Telephone Encounter - [...] Aguilar RN documented in this encounterUniversity Hospitals Geauga Medical Center04-14-2022 Miscellaneous Notes* Telephone Encounter - Clementine Agiular RN - 10/28/2021 1:12 PM EDT This encounter was opened in error. @[facility]@ documented in this encounterUniversity Hospitals Geauga Medical Center04-11-2022 Miscellaneous Notes* Telephone Encounter - Christo Howard APRN.CNP - 10/25/2021 4:05 PM EDT Hold off for now. Christo Howard APRN.CNP * Telephone Encounter - Katie Rosen MA - 10/25/2021 11:01 AM EDT If patient needs labs, please sign/place orders for 10/28/21. Thanks. Katie Rosen MA documented in this encounterUniversity Hospitals Geauga Medical Center01-01-2015 Evaluation note* Diagnosis Onset Date Resolution Status ASHD (arteriosclerotic heart disease) acute Cervical spondylosis acute Essential hypertension acute Hypercholesterolemia acute Malignant neoplasm of prostate July 17, 2014 acute Nonrheumatic aortic valve stenosis acute GRADY (obstructive sleep apnea) acute Type 2 diabetes mellitus with hyperglycemia acute [facility] Work Phone: Evaluation + Plan note Future Appointments Appointment Date:05/13/2022 08:45:00 AM Scheduled Provider:Anthony SCRUGGS MD Location:[facility] Appointment Type:URO Office Visit Diagnostic Tests Pending * PSA Total 11/08/21 Future Scheduled Tests Laboratory* Basic Metabolic Panel 09/20/21 [facility] evaluation + Plan note Future Appointments Appointment Date:10/28/2022 08:00:00 AM Scheduled Provider:Anthony SCRUGGS MD Location:[facility] Appointment Type:URO Office Visit Diagnostic Tests Pending * PSA Total 09/14/22 Future Scheduled Tests Laboratory* Basic Metabolic Panel 09/20/21 [facility] evaluation + Plan note Future Appointments Appointment Date:10/20/2023 08:45:00 AM Scheduled Provider:Anthony SCRUGGS MD Location:[facility] Appointment Type:URO Office Visit Diagnostic Tests Pending * PSA Total 04/17/[address] [facility] evaluation + Plan note Future Appointments Appointment Date:04/19/2024 08:00:00 AM Scheduled Provider:Anthony SCRUGGS MD Location:[facility] Appointment Type:URO Office Visit Diagnostic Tests Pending * PSA Total 02/15/24 [facility] evaluation + Plan note Future Appointments Appointment Date:10/07/2024 09:15:00 AM Scheduled Provider:Anthony SCRUGGS MD Location:[facility] Appointment Type:URO Office Visit Diagnostic Tests Pending * PSA Total 08/17/24 [facility] evaluation note* Diagnosis OPENED IN [...] of prostate [facility] Diagnosis Malignant neoplasm of prostate (HCC)- Primary Malignant neoplasm of prostate [facility]* Diagnosis Malignant neoplasm of prostate (HCC)- Primary Malignant neoplasm of prostate 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 pectoris, unspecified vessel or lesion type Essential hypertension Unspecified essential hypertension Type 2 diabetes mellitus without complication, without long-term current use of insulin (HCC) documented in this encounter [facility] noteNo [employer] Other Evaluation note* Diagnosis Malignant neoplasm of prostate (HCC)- Primary Malignant neoplasm of prostate 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 pectoris, unspecified vessel or lesion type Essential hypertension Unspecified essential hypertension Type 2 diabetes mellitus without complication, without long-term current use of insulin (HCC) [facility]* Diagnosis Malignant neoplasm of prostate (HCC)- Primary Malignant neoplasm of prostate documented in this encounter [facility] note* Diagnosis Malignant neoplasm of prostate (HCC)- Primary Malignant neoplasm of prostate documented in this encounter [facility] note* Diagnosis Malignant neoplasm of prostate (HCC)- Primary Malignant neoplasm of prostate 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 pectoris, unspecified vessel or lesion type Essential hypertension Unspecified essential hypertension Type 2 diabetes mellitus without complication, without long-term current use of insulin (HCC) documented in this encounter [facility] note* Diagnosis Neoplasm of unspecified behavior of bone, soft tissue, and skin Actinic keratosis documented in this encounter [facility] note* Diagnosis Malignant neoplasm of prostate (HCC)- Primary Malignant neoplasm of prostate documented in this encounter [facility] note* Diagnosis Malignant neoplasm of prostate (HCC)- Primary Malignant neoplasm of prostate Essential hypertension Unspecified essential hypertension 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 pectoris, unspecified vessel or lesion type Type 2 diabetes mellitus without complication, without long-term current use of insulin (HCC) Lesion of skin of right ear Abdominal discomfort Abdominal pain, unspecified site documented [facility]* Diagnosis Onset Date Resolution Status [...] Type 2 diabetes mellitus with hyperglycemia acute [facility] Work Phone: Evaluation note* Diagnosis Malignant neoplasm of prostate (HCC)- Primary Malignant neoplasm of prostate documented in this encounter [facility] note* Diagnosis Malignant neoplasm of prostate (HCC)- Primary Malignant neoplasm of prostate documented in this encounter [facility] note* Diagnosis Malignant neoplasm of prostate (HCC)- Primary Malignant neoplasm of prostate documented in this encounter [facility] note* Diagnosis Malignant neoplasm of prostate (HCC)- Primary Malignant neoplasm of prostate documented in this encounter [facility] note* Diagnosis Malignant neoplasm of prostate (HCC)- Primary Malignant neoplasm of prostate Essential hypertension Unspecified essential hypertension 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 pectoris, unspecified vessel or lesion type Type 2 diabetes mellitus without complication, without long-term current use of insulin (HCC) documented in this encounter [facility] note* Diagnosis Malignant neoplasm of prostate (HCC)- Primary Malignant neoplasm of prostate documented in this encounter [facility] general Narrative - Reported* Type Description Date [...] [place] 08/2015 Hospitalization History see surgical hx [employer] Other History general Narrative - Reported* Type [...] [place] 08/2015 Hospitalization History see surgical hx [facility] [employer] Other Hospital course Narrative No data available for this section [facility] progress note No data available for this section 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 [address] [place] [address] Referral ID Status Reason Start Date Expiration Date V isits Requested Visits Authorized [id number] Pending Review 1 1 Reason *FU 06/06 Right fr ontal sinus mass and cerumen impaction Diagnosis 1 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) Diagnosis 2 Impacted cerumen of right ear (H61.21) Referral Organization [facility] dl Referring Provider First Name Jamar Referring Provider Last Name Juan David Referring Provider Specialty Internal Me dicine Referred Organization [facility] Referred Provider Emelina Louis Referred Address ,[place], [place],[address] Referred Provider Specialty Ear, Nose an d [...] any alcohol or drug abuse patient.[facility] CenterIn the event this information is protected by the Federal Confidentiality of Alcohol and Drug Abuse Patient Records regulations: The Federal rules restrict any use of the information to criminally investigate or prosecute any alcohol or drug abuse patient.[facility] CenterIn the event this information is protected by the Federal Confidentiality of Alcohol and Drug Abuse Patient Records regulations: The Federal rules restrict any use of the information to criminally investigate or prosecute any alcohol or drug abuse patient.[facility] CenterIn the event this information is protected by the Federal Confidentiality of Alcohol and Drug Abuse Patient Records regulations: The Federal rules restrict any use of the information to criminally investigate or prosecute any alcohol or drug abuse patient.[facility] CenterIn the event this information is protected by the Federal Confidentiality of Alcohol and Drug Abuse Patient Records regulations: The Federal rules restrict any use of the information to criminally investigate or prosecute any alcohol or drug abuse patient.[facility] CenterIn the event this information is protected by the Federal Confidentiality of Alcohol and Drug Abuse Patient Records regulations: The Federal rules restrict any use of the information to criminally investigate or prosecute any alcohol or drug abuse patient.[facility] CenterIn the event this information is protected by the Federal Confidentiality of Alcohol and Drug Abuse Patient Records regulations: The Federal rules restrict any use of the information to criminally investigate or prosecute any alcohol or drug abuse patient.[facility] CenterIn the event this information is protected by the Federal Confidentiality of Alcohol and Drug Abuse Patient Records regulations: The Federal rules restrict any use of the information to criminally investigate or prosecute any alcohol or drug abuse patient.[facility] CenterIn the event this information is protected by the Federal Confidentiality of Alcohol and Drug Abuse Patient Records regulations: The Federal rules restrict any use of the information to criminally investigate or prosecute any alcohol or drug abuse patient.[facility] CenterIn the event this information is protected by the Federal Confidentiality of Alcohol and Drug Abuse Patient Records regulations: The Federal rules restrict any use of the information to criminally investigate or prosecute any alcohol or drug abuse patient.[facility] CenterIn the event this information is protected by the Federal Confidentiality of Alcohol and Drug Abuse Patient Records regulations: The Federal rules restrict any use of the information to criminally investigate or prosecute any alcohol or drug abuse patient.[facility] CenterIn the event this information is protected by the Federal Confidentiality of Alcohol and Drug Abuse Patient Records regulations: The Federal rules restrict any use of the information to criminally investigate or prosecute any alcohol or drug abuse patient.[facility] CenterIn the event this information is protected by the Federal Confidentiality of Alcohol and Drug Abuse Patient Records regulations: The Federal rules restrict any use of the information to criminally investigate or prosecute any alcohol or drug abuse patient.[facility] CenterIn the event this information is protected by the Federal Confidentiality of Alcohol and Drug Abuse Patient Records regulations: The Federal rules restrict any use of the information to criminally investigate or prosecute any alcohol or drug abuse patient.[facility] CenterIn the event this information is protected by the Federal Confidentiality of Alcohol and Drug Abuse Patient Records regulations: The Federal rules restrict any use of the information to criminally investigate or prosecute any alcohol or drug abuse patient.[facility] CenterIn the event this information is protected by the Federal Confidentiality of Alcohol and Drug Abuse Patient Records regulations: The Federal rules restrict any use of the information to criminally investigate or prosecute any alcohol or drug abuse patient.[facility] CenterIn the event this information is protected by the Federal Confidentiality of Alcohol and Drug Abuse Patient Records regulations: The Federal rules restrict any use of the information to criminally investigate or prosecute any alcohol or drug abuse patient.[facility] CenterIn the event this information is protected by the Federal Confidentiality of Alcohol and Drug Abuse Patient Records regulations: The Federal rules restrict any use of the information to criminally investigate or prosecute any alcohol or drug abuse patient.[facility] CenterIn the event this information is protected by the Federal Confidentiality of Alcohol and Drug Abuse Patient Records regulations: The Federal rules restrict any use of the information to criminally investigate or prosecute any alcohol or drug abuse patient.[facility] CenterIn the event this information is protected by the Federal Confidentiality of Alcohol and Drug Abuse Patient Records regulations: The Federal rules restrict any use of the information to criminally investigate or prosecute any alcohol or drug abuse patient.[facility] CenterIn the event this information is protected by the Federal Confidentiality of Alcohol and Drug Abuse Patient Records regulations: The Federal rules restrict any use of the information to criminally investigate or prosecute any alcohol or drug abuse patient.[facility] CenterIn the event this information is protected by the Federal Confidentiality of Alcohol and Drug Abuse Patient Records regulations: The Federal rules restrict any use of the information to criminally investigate or prosecute any alcohol or drug abuse patient.[facility] CenterIn the event this information is protected by the Federal Confidentiality of Alcohol and Drug Abuse Patient Records regulations: The Federal rules restrict any use of the information to criminally investigate or prosecute any alcohol or drug abuse patient.[facility] CenterIn the event this information is protected by the Federal Confidentiality of Alcohol and Drug Abuse Patient Records regulations: The Federal rules restrict any use of the information to criminally investigate or prosecute any alcohol or drug abuse patient.[facility] CenterIn the event this information is protected by the Federal Confidentiality of Alcohol and Drug Abuse Patient Records regulations: The Federal rules restrict any use of the information to criminally investigate or prosecute any alcohol or drug abuse patient.[facility] CenterIn the event this information is protected by the Federal Confidentiality of Alcohol and Drug Abuse Patient Records regulations: The Federal rules restrict any use of the information to criminally investigate or prosecute any alcohol or drug abuse patient.[facility] CenterIn the event this information is protected by the Federal Confidentiality of Alcohol and Drug Abuse Patient Records regulations: The Federal rules restrict any use of the information to criminally investigate or prosecute any alcohol or drug abuse patient.[facility] CenterIn the event this information is protected by the Federal Confidentiality of Alcohol and Drug Abuse Patient Records regulations: The Federal rules restrict any use of the information to criminally investigate or prosecute any alcohol or drug abuse patient.[facility] CenterIn the event this information is protected by the Federal Confidentiality of Alcohol and Drug Abuse Patient Records regulations: The Federal rules restrict any use of the information to criminally investigate or prosecute any alcohol or drug abuse patient.[facility] CenterIn the event this information is protected by the Federal Confidentiality of Alcohol and Drug Abuse Patient Records regulations: The Federal rules restrict any use of the information to criminally investigate or prosecute any alcohol or drug abuse patient.[facility] CenterIn the event this information is protected by the Federal Confidentiality of Alcohol and Drug Abuse Patient Records regulations: The Federal rules restrict any use of the information to criminally investigate or prosecute any alcohol or drug abuse patient.[facility] CenterIn the event this information is protected by the Federal Confidentiality of Alcohol and Drug Abuse Patient Records regulations: The Federal rules restrict any use of the information to criminally investigate or prosecute any alcohol or drug abuse patient.[facility] CenterIn the event this information is protected by the Federal Confidentiality of Alcohol and Drug Abuse Patient Records regulations: The Federal rules restrict any use of the information to criminally investigate or prosecute any alcohol or drug abuse patient.[facility] CenterIn the event this information is protected by the Federal Confidentiality of Alcohol and Drug Abuse Patient Records regulations: The Federal rules restrict any use of the information to criminally investigate or prosecute any alcohol or drug abuse patient.[facility] CenterIn the event this information is protected by the Federal Confidentiality of Alcohol and Drug Abuse Patient Records regulations: The Federal rules restrict any use of the information to criminally investigate or prosecute any alcohol or drug abuse patient.[facility] CenterIn the event this information is protected by the Federal Confidentiality of Alcohol and Drug Abuse Patient Records regulations: The Federal rules restrict any use of the information to criminally investigate or prosecute any alcohol or drug abuse patient.[facility] CenterIn the event this information is protected by the Federal Confidentiality of Alcohol and Drug Abuse Patient Records regulations: The Federal rules restrict any use of the information to criminally investigate or prosecute any alcohol or drug abuse patient.[facility] CenterIn the event this information is protected by the Federal Confidentiality of Alcohol and Drug Abuse Patient Records regulations: The Federal rules restrict any use of the information to criminally investigate or prosecute any alcohol or drug abuse patient.[facility] CenterIn the event this information is protected by the Federal Confidentiality of Alcohol and Drug Abuse Patient Records regulations: The Federal rules restrict any use of the information to criminally investigate or prosecute any alcohol or drug abuse patient.[facility] Care Teams (unrecognized sec tion [...] September 02, 2024 End: September 02, 2024 Rotary Driller Helper Relationship Specialty Start Date End Date Jamar Fall, DO PCP - General Internal Medicine 08/04/14 Rotary Driller Helper Relationship Specialty Start Date End Date Jamar Fall, DO PCP - General Internal Medicine 08/04/14 Rotary Driller Helper Relationship Specialty Start Date End Date Jamar Fall, DO PCP - General Internal Medicine 08/04/14 Rotary Driller Helper Relationship Specialty Start Date End Date Jamar Fall, DO PCP - General Internal Medicine 08/04/14 Marco A Esqueda MD [address] [place], [place] [id number] Physician Hematology/Oncology 11/02/21 Christo Howard, LOGISTICS ANALYTICS MANAGER.SALES CORRESPONDENT [address] [place] [address] Nurse Practitioner Hematology/Oncology 11/02/21 Clementine Aguilar, ANITHA [address] [place] [address] Specialty Insole Bottom Filler Hematology/Oncology 11/02/21 Rotary Driller Helper Relationship Specialty Start Date End Date Juan David Jamar Jessica, DO PCP - General Internal Medicine 08/04/14 Marco A Esqueda MD [address] [place] [address] Physician Hematology/Oncology 11/02/21 Christo Howard, LOGISTICS ANALYTICS MANAGER.SALES CORRESPONDENT [address] [place] [address] Nurse Practitioner Hematology/Oncology 11/02/21 Clementine Aguilar, RN [address] [place], [place] [id number] Specialty Insole Bottom Filler Hematology/Oncology 11/02/21 Rotary Driller Helper Relationship Specialty Start Date End Date Jamar Fall, DO PCP - General Internal Medicine 08/04/14 Marco A Esqueda MD [address] [place] [address] Physician Hematology/Oncology 11/02/21 Christo Howard, LOGISTICS ANALYTICS MANAGER.SALES CORRESPONDENT [address] [place] [address] Nurse Practitioner Hematology/Oncology 11/02/21 Clementine Aguilar, RN [address] [place] [address] Specialty Insole Bottom Filler Hematology/Oncology 11/02/21 Rotary Driller Helper Relationship Specialty Start Date End Date Jamar Fall, DO PCP - General Internal Medicine 08/04/14 Marco A Esqueda MD [address] [place] [address] Physician Hematology/Oncology 11/02/21 Christo Howard, LOGISTICS ANALYTICS MANAGER.SALES CORRESPONDENT [address] [place] [address] Nurse Practitioner Hematology/Oncology 11/02/21 Clementine Aguilar, ANITHA [address] [place] [address] Specialty Insole Bottom Filler Hematology/Oncology 11/02/21 Rotary Driller Helper Relationship Specialty Start Date End Date Jamar Fall, DO PCP - General Internal Medicine 08/04/14 Marco A Esqueda MD [address] [place] [address] Physician Hematology/Oncology 11/02/21 Christo Howard, LOGISTICS ANALYTICS MANAGER.SALES CORRESPONDENT [address] [place] [address] Nurse Practitioner Hematology/Oncology 11/02/21 Clementine Aguilar, RN [address] [place] [address] Specialty Insole Bottom Filler Hematology/Oncology 11/02/21 Rotary Driller Helper Relationship Specialty Start Date End Date Jamar Fall, DO PCP - General Internal Medicine 08/04/14 Marco A Esqueda MD [address] [place] [address] Physician Hematology/Oncology 11/02/21 Christo Howard, LOGISTICS ANALYTICS MANAGER.SALES CORRESPONDENT [address] [place] [address] Nurse Practitioner Hematology/Oncology 11/02/21 Clementine Aguilar, ANITHA [address] [place] [address] Specialty Insole Bottom Filler Hematology/Oncology 11/02/21 Rotary Driller Helper Relationship Specialty Start Date End Date Jamar Fall, DO PCP - General Internal Medicine 08/04/14 Marco A Esqueda MD [address] [place] [address] Physician Hematology/Oncology 11/02/21 Christo Howard, LOGISTICS ANALYTICS MANAGER.SALES CORRESPONDENT [address] [place] [address] Nurse Practitioner Hematology/Oncology 11/02/21 Clementine Aguilar, ANITHA [address] [place] [address] Specialty Insole Bottom Filler Hematology/Oncology 11/02/21 Rotary Driller Helper Relationship Specialty Start Date End Date Jamar Fall, PCP - General Internal Medicine 08/04/14 Marco A Esqueda MD [address] [place] [address] Physician Hematology/Oncology 11/02/21 Christo Howard, LOGISTICS ANALYTICS MANAGER.SALES CORRESPONDENT [address] [place] [address] Nurse Practitioner Hematology/Oncology 11/02/21 Clementine Aguilar, ANITHA [address] [place] [address] Specialty Insole Bottom Filler Hematology/Oncology 11/02/21 Rotary Driller Helper Relationship Specialty Start Date End Date Jamar Fall, DO PCP - General Internal Medicine 08/04/14 Marco A Esqueda MD [address] [place] [address] Physician Hematology/Oncology 11/02/21 Christo Howard, LOGISTICS ANALYTICS MANAGER.SALES CORRESPONDENT [address] [place] [address] Nurse Practitioner Hematology/Oncology 11/02/21 Clementine Aguilar, RN [address] [place] [address] Specialty Insole Bottom Filler Hematology/Oncology 11/02/21 Rotary Driller Helper Relationship Specialty Start Date End Date Jamar Fall, PCP - General Internal Medicine 08/04/14 Marco A Esqueda MD [address] [place] [address] Physician Hematology/Oncology 11/02/21 Christo Howard, LOGISTICS ANALYTICS MANAGER.SALES CORRESPONDENT [address] [place] [address] Nurse Practitioner Hematology/Oncology 11/02/21 Clementine Aguilar, RN [address] [place] [address] Specialty Insole Bottom Filler Hematology/Oncology 11/02/21 Rotary Driller Helper Relationship Specialty Start Date End Date Jamar Fall, DO PCP - General Internal Medicine 08/04/14 Marco A Esqueda MD [address] [place] [address] Physician Hematology/Oncology 11/02/21 Christo Howard, LOGISTICS ANALYTICS MANAGER.SALES CORRESPONDENT [address] [place] [address] Nurse Practitioner Hematology/Oncology 11/02/21 Clementine Aguilar, RN [address] [place] [address] Specialty Insole Bottom Filler Hematology/Oncology 11/02/21 Rotary Driller Helper Relationship Specialty Start Date End Date Jamar Fall, DO PCP - General Internal Medicine 08/04/14 Marco A Esqueda MD [address] [place] [address] Physician Hematology/Oncology 11/02/21 Christo Howard, LOGISTICS ANALYTICS MANAGER.SALES CORRESPONDENT [address] [place] [address] Nurse Practitioner Hematology/Oncology 11/02/21 Clementine Aguilar, RN [address] [place] [address] Specialty Insole Bottom Filler Hematology/Oncology 11/02/21 Rotary Driller Helper Relationship Specialty Start Date End Date Jamar Fall DO PCP - General Internal Medicine 08/04/14 Marco A Esqueda MD [address] [place] [address] Physician Hematology/Oncology 11/02/21 Christo Howard, LOGISTICS ANALYTICS MANAGER.SALES CORRESPONDENT [address] [place] [address] Nurse Practitioner Hematology/Oncology 11/02/21 Clementine Aguilar, ANITHA [address] [place] [address] Specialty Insole Bottom Filler Hematology/Oncology 11/02/21 Rotary Driller Helper Relationship Specialty Start Date End Date Jamar Fall DO PCP - General Internal Medicine 08/04/14 Marco A Esqueda MD [address] [place] [address] [place] [address] Physician Hematology/Oncology 11/02/21 Christo Howard, LOGISTICS ANALYTICS MANAGER.SALES CORRESPONDENT [address] [place] [address] [place] [address] Nurse Practitioner Hematology/Oncology 11/02/21 Clementine Aguilar, ANITHA [address] [place] [address] Specialty Insole Bottom Filler Hematology/Oncology 11/02/21 Rotary Driller Helper Relationship Specialty Start Date End Date Jamar Fall DO PCP - General Internal Medicine 08/04/14 Marco A Esqueda MD [address] [place] [address] [place] [address] Physician Hematology/Oncology 11/02/21 Christo Hwoard, LOGISTICS ANALYTICS MANAGER.SALES CORRESPONDENT [address] [facility] [address] Nurse Practitioner Hematology/Oncology 11/02/21 Clementine Aguilar, ANITHA [address] [facility] [address] Specialty Insole Bottom Filler Hematology/Oncology 11/02/21 Rotary Driller Helper Relationship Specialty Start Date End Date Jamar Fall DO PCP - General Internal Medicine 08/04/14 Marco A Esqueda MD [address] [facility] [place] [place] [address] Physician Hematology/Oncology 11/02/21 Christo Howard, LOGISTICS ANALYTICS MANAGER.SALES CORRESPONDENT [address] [facility] [place] [address] Nurse Practitioner Hematology/Oncology 11/02/21 Clementine Aguilar, ANITHA [address] [facility] [address] Specialty Insole Bottom Filler Hematology/Oncology 11/02/21 Rotary Driller Helper Relationship Specialty Start Date End Date Jamar Fall DO PCP - General Internal Medicine 08/04/14 Marco A Esqueda MD [address] [facility] [address] Physician Hematology/Oncology 11/02/21 Christo Howard, LOGISTICS ANALYTICS MANAGER.SALES CORRESPONDENT [address] [facility] [address] Nurse Practitioner Hematology/Oncology 11/02/21 Clementine Aguilar, ANITHA [address] [place] [address] Specialty Insole Bottom Filler Hematology/Oncology 11/02/21 Rotary Driller Helper Relationship Specialty Start Date End Date Jamar Fall MD [address] [place] [address] PCP - General Internal Medicine 05/31/23 Rotary Driller Helper Relationship Specialty Start Date End Date Jamar Fall MD [address] [place] [address] PCP - General Internal Medicine 05/31/23 Rotary Driller Helper Relationship Specialty Start Date End Date Jamar Fall DO PCP - General Internal Medicine 08/04/14 Marco A Esqueda MD [address] [place] [address] [place] [address] Physician Hematology/Oncology 11/02/21 Christo Howard APRN.SALES CORRESPONDENT [address] [facility] [place] [address] Nurse Practitioner Hematology/Oncology 11/02/21 Clementine Aguilar, ANITHA [address] [place] [address] Specialty Insole Bottom Filler Hematology/Oncology 11/02/21 Rotary Driller Helper Relationship Specialty Start Date End Date Jamar Fall DO PCP - General Internal Medicine 08/04/14 Marco A Esqueda MD [address] [place] [address] [place] [address] Physician Hematology/Oncology 11/02/21 Christo Howard, ROCHELLE.SALES CORRESPONDENT [address] [place] [address] [place] [address] Nurse Practitioner Hematology/Oncology 11/02/21 Clementine Aguilar, ANITHA [address] [place] [address] Specialty Insole Bottom Filler Hematology/Oncology 11/02/21 Team Status: Active Member Role [...] November 23, 2023 End: November 23, 2023 Rotary Driller Helper Relationship Specialty Start Date End Date Jamar Fall DO PCP - General Internal Medicine 08/04/14 Marco A Esqueda MD [address] [place] [address] [place] [address] Physician Hematology/Oncology 11/02/21 Christo Howard, LOGISTICS ANALYTICS MANAGER.SALES CORRESPONDENT [address] [place] [address] [place] [address] Nurse Practitioner Hematology/Oncology 11/02/21 Clementine Aguilar, ANITHA [address] [place] [address] Specialty Insole Bottom Filler Hematology/Oncology 11/02/21 Rotary Driller Helper Relationship Specialty Start Date End Date Jamar Fall DO PCP - General Internal Medicine 08/04/14 Marco A Esqueda MD [address] [place] [address] Physician Hematology/Oncology 11/02/21 Christo Howard, LOGISTICS ANALYTICS MANAGER.SALES CORRESPONDENT [address] [place] [address] Nurse Practitioner Hematology/Oncology 11/02/21 Clementine Aguilar RN [address] [place] [address] Specialty Insole Bottom Filler Hematology/Oncology 11/02/21 Team Status: Active Member Role Status Dates Jamar Fall DO Primary Care Provider Active Start: January 25, 2024 SAMAN Collins Attending Provider Active Start: January 25, 2024 Team Status: Inactive Member Role Status Dates Jamar Fall DO Primary Care Provide r, Attending Provider Active Start: March 26, 2024 End: March 26, 2024 Rotary Driller Helper Relationship Specialty Start Date End Date Jamar Fall DO PCP - General Internal Medicine 08/04/14 Marco A Esqueda MD [address] [place] [address] Physician Hematology/Oncology 11/02/21 Christo Howard, LOGISTICS ANALYTICS MANAGER.SALES CORRESPONDENT [address] [place] [address] Nurse Practitioner Hematology/Oncology 11/02/21 Clementine Aguilar, ANITHA [address] [facility] [address] Specialty Insole Bottom Filler Hematology/Oncology 11/02/21 Rotary Driller Helper Relationship Specialty Start Date End Date Jamar Fall DO PCP - General Internal Medicine 08/04/14 Marco A Esqueda MD [address] [facility] [facility] [address] Physician Hematology/Oncology 11/02/21 Christo Howard, LOGISTICS ANALYTICS MANAGER.SALES CORRESPONDENT [address] [facility] [place] [place] [address] Nurse Practitioner Hematology/Oncology 11/02/21 Clementine Aguilar RN [address] [facility] [place] [address] Specialty Insole Bottom Filler Hematology/Oncology 11/02/21 Rotary Driller Helper Relationship Specialty Start Date End Date Jamar Fall DO PCP - General Internal Medicine 08/04/14 Marco A Esqueda MD [address] [facility] [place] [place] [address] Physician Hematology/Oncology 11/02/21 Christo Howard, LOGISTICS ANALYTICS MANAGER.SALES CORRESPONDENT [address] [facility] [place] [address] Nurse Practitioner Hematology/Oncology 11/02/21 Clementine Aguilar, ANITHA [address] [facility] [address] Specialty Insole Bottom Filler Hematology/Oncology 11/02/21 Rotary Driller Helper Relationship Specialty Start Date End Date Jamar Fall DO PCP - General Internal Medicine 08/04/14 Marco A Esqueda MD [address] [place] [address] [place] [address] Physician Hematology/Oncology 11/02/21 Christo Howard, LOGISTICS ANALYTICS MANAGER.SALES CORRESPONDENT [address] [facility] [place] [address] Nurse Practitioner Hematology/Oncology 11/02/21 Clementine Aguilar, ANITHA [address] [place] [address] Specialty Insole Bottom Filler Hematology/Oncology 11/02/21 Rotary Driller Helper Relationship Specialty Start Date End Date Jamar Fall DO PCP - General Internal Medicine 08/04/14 Marco A Esqueda MD [address] [place] [address] [place] [address] Physician Hematology/Oncology 11/02/21 Christo Howard, LOGISTICS ANALYTICS MANAGER.SALES CORRESPONDENT [address] [place] [address] [place] [address] Nurse Practitioner Hematology/Oncology 11/02/21 Clementine Aguilar, ANITHA [address] [place] [address] Specialty Insole Bottom Filler Hematology/Oncology 11/02/21 Reason for Visit (unrecogniz ed [...] Procedures DENOSUMAB INJECTION Marco A Esqueda MD [address] [place] [address] [place] [address] Himanshu Treat [address] [place] [address] Referral ID Status Reason Start Date Expiration Date V isits Requested Visits Authorized [id number] Authorized 11/11/2021 07/16/2022 99 99 Reason Comments [...] of R ear Marco A Esqueda MD [address] [place] [address] [place] [address] Lety Holguin MD [address] [facility] [address] [place] [address] Referral ID Status Reason Start Date Expiration Date Visits Re quested Visits Authorized [id number] Closed 08/04/2023 01/31/2024 1 1 Reason Comments Prostate Cancer 3 month follow up Established Patient Reason Comments Refill Request Reason Onset Date Comments Refill Request 04/01/2024 Reason Onset Date Comments Refill Request 05/08/2024 Reason Onset Date Comments Lab Orders 07/25/2024 (unrecognized sect ion and content) No Status Records FoundNo Status Records FoundNo Status Records FoundNo Status Records FoundNo Status Records FoundNo Status Records Found INFORMATION SOURCE (unrecogn ized section and content) DATE CREATED AUTHOR 10/31/2022 [facility] DATE CREATED AUTHOR AUTHOR'S ORGANIZ ATION 03/02/2024 [facility] DATE CREATED AUTHOR AUTHOR'S ORGANIZ ATION 04/02/2024 [facility] DATE CREATED AUTHOR AUTHOR'S ORGANIZ ATION 10/08/2024 [facility] DATE CREATED AUTHOR AUTHOR'S ORGANIZ ATION 10/19/2024 [facility] DATE CREATED AUTHOR AUTHOR'S ORGANIZ ATION 10/27/2024 [facility] Inactive Administered Medications - up to [...] BE BASED ON THE PRIMARY CLINICAL RECORDS. [employer] provides no warranty or guarantee of the accuracy or completeness of information in this document.
--- NOTE | 2024-10-30 08:27 | PM.CN ---
Consult Note: HPI Data of Consult Patient: known to practice within the last 3 years Requesting Physician: Cheryl Cox NP Primary Care Provider: Jamar Jones DO Consult Narrative Reason for consult: f/u Narrative: Rajesh Felix a pleasant 79 year old male presents for evaluation of chronic left sided neck pain. has failed to benefit from >6 weeks of PT and provider guided HEP, heat, ice, tylenol, and topical NSAIDs. recent cervical xray and MRI consistent with multilevel degenerative changes and cervical stenosis. pt recently underwent left C3-4 C4-5 TFESI with >50% improvement in radicular pain ongoing. continues to have moderate facet mediated and myofascial pain. today pain 5/10 sore increasing with ROM and upon waking up. cc:: CC: Cheryl Cox NP Review of Systems ROS Status of ROS 10 or more systems reviewed and unremarkable except as noted in history and below Musculoskeletal Reports: neck pain; Denies: extremity pain PFSH PFSH Medical History Anemia ?D64.9 - Anemia, unspecified (ICD-10) History of blood transfusion ?Z92.89 - Personal history of other medical treatment (ICD-10) Sleep apnea ?G47.30 - Sleep apnea, unspecified (ICD-10) COVID-19 ?U07.1 - COVID-19 (ICD-10) Prostate cancer ?C61 - Malignant neoplasm of prostate (ICD-10) Coronary artery disease ?I25.10 - Atherosclerotic heart disease of [place] coronary artery without angina pectoris (ICD-10) Diabetes ?E11.9 - Type 2 diabetes mellitus without complications (ICD-10) Arthritis ?M19.90 - Unspecified osteoarthritis, unspecified site (ICD-10) Neck pain ?M54.2 - Cervicalgia (ICD-10) Surgical History 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 - Presence of aortocoronary bypass graft (ICD-10) History of appendectomy ?Z90.49 - Acquired absence of other specified parts of digestive tract (ICD-10) S/P prostatectomy ?Z90.79 - Acquired absence of other genital organ(s) (ICD-10) History of colonoscopy ?Z98.890 - Other specified postprocedural states (ICD-10) S/P epidural steroid injection ?Z92.241 - Personal history of systemic steroid therapy (ICD-10) Family History Other Cancer Family history of myocardial infarction Social History Within the past year, how often did you have a drink containing alcohol: 4 or more times a week Within the past year, how many standard drinks containing alcohol did you have on a typical day: 1 or 2 Total score: 0 Score interpretation: A score less than 4 is consistent with normal alcohol consumption. Smoking status: Never smoker Non-prescribed substance use: denies use Previous occupational history: [employer] Highest level of school completed/degree received: Associate degree: occupational, technical, vocational program Meds Home Medications and Allergies Home Medications ?Medication ?Instructions ?Recorded ?Confirmed ?Type CALCIUM & D3 .QD 12/13/23 History aspirin 81 mg capsule 81 mg PO DAILY 12/13/23 10/21/24 History atorvastatin 40 mg tablet 40 mg PO DAILY 12/13/23 10/21/24 History enzalutamide 80 mg tablet (Xtandi) 80 mg PO DAILY 12/13/23 10/21/24 History glimepiride 1 mg tablet 0.5 mg PO DAILY 12/13/23 10/21/24 History metformin 500 mg tablet 1,000 mg PO BID 12/13/23 10/21/24 History metoprolol succinate 25 mg 25 mg PO Q12H 12/13/23 10/21/24 History tablet,extended release 24 hr multivitamin with iron (Daily 1 tab PO DAILY 12/13/23 10/21/24 History Vites/Iron tablet) lisinopril 20 1 tab PO QPM 04/01/24 10/21/24 History mg-hydrochlorothiazide 12.5 mg tablet hydrocodone 5 mg-acetaminophen 325 1 tab PO Q6H PRN pain #8 tabs 04/08/24 10/21/24 Rx mg tablet Allergies Allergy/AdvReac Type Severity Reaction Status Date / Time Penicillins Allergy Mild Rash Verified 10/21/24 09:13 Exam Constitutional Documenting provider has reviewed patient's vital signs: yes Common normals: no apparent distress, oriented x3, healthy appearing, alert and well nourished General appearance: cooperative HENMT Common normals: normocephalic, hearing grossly normal bilaterally and moist oral mucous membranes Head and scalp: normocephalic Eye Common normals: PERRL Pupil: PERRL Neck & C-Spine Common normals: full ROM General: normal visual inspection Cervical spine: pain with cervical ROM, paracervical muscle tenderness and trapezius muscle tenderness; no cervical spine tenderness and no paracervical muscle spasm Other: negative spurlings strength 5/5 in BUE sensation intact BUE Chest Common normals: inspection of chest normal Respiratory Common normals: normal respiratory effort, no retractions and no use of accessory muscles Neuro Common normals: oriented x3 Sensorium/orientation: alert Psych Common normals: mental status grossly normal, thought process normal, cooperative, affect normal, speech normal and activity/motor behavior normal Speech: normal speech Thought process: normal thought process Results Additional Findings Additional findings: If on a controlled substance or opioids, I have checked an [place] report on this patient and there are no aberrancies noted in the prescribing history.??If on a controlled substance or opioid a drug screen was completed and reviewed within the last year, and if there has not been a drug screen completed we ordered one today to monitor higher risk, state monitored pain medication use. As part of providing excellent, safe, comprehensive care, the following was completed at our patient's visit: 1. A medication reconciliation and review to ensure accurate knowledge of current/active medications, including asking our patients to inform us about any [id number] medications or herbal remedies/nutritional supplements/alternative remedies. 2. A review to specifically ensure our patients have had annual screening for screening for depression, screening for tobacco use, and screening for unhealthy alcohol use. For concerning screenings had a discussion with the patient, provided patient education, and recommended follow-up with primary care provider when appropriate. If patient noted with a risk of falling, they received education on strength, gait, and balance training to prevent future risk of falling. Portions of this note may have been carried over from the previous visit and updated as appropriate. Please note this office utilizes paper charting in addition to the electronic medical record. A list of current medications, vitals, and PMH is available there as the clinical staff outside of myself do not have access to [facility] charting during the clinic day operations. As part of providing quality comprehensive care the current medications, vitals, and PMH were reviewed in the paper chart. Assessment and Plan Assessment and Plan (1) Cervical spinal stenosis: Assessment and Plan: The patient has had over 3 months of moderate to severe neck pain with functional impairment and inadequate response to conservative care including NSAIDS (unless there are contraindication such as concurrent blood thinners), multiple oral or topical pain medications, and home exercise program/physical therapy.? Patient has completed >6 weeks of guided home exercise program and/or formal physical therapy program without relief of their symptoms.? I have reviewed the imaging of the cervical spine and no red flags were identified.? The imaging reveals radiographic findings consistent with cervical DDD and cervical spondylosis The Oswestry Disability Index was completed, and the patient scored a 10%.? 10/21/24 left C3-4 C4-5 TFESI >50% improvement ongonig (2) Cervical radiculopathy: (3) Cervical spondylosis: Assessment and Plan: failed left C2-3 C3-4 MBB and left C4/5 C5/6 MBB (4) Myofascial pain: Plan dc otc nsaids, start mobic 7.5mg BID PRN pain with food. risks vs benefits reviewed start transdermal therapeutics compound cream #3 TID PRN to affected areas continue HEP as tolerated f/u 3 months, sooner if needed
== END 2024-10-30 08:05 | disposition home or self-care (01) ==
LOC: PM 08:04
PROVIDERS: PCP Internal Medicine; Visit Provider Nurse Practitioner
DX: M48.02 Spinal stenosis, cervical region (principal); M54.12 Radiculopathy, cervical region; M47.812 Spondylosis without myelopathy or radiculopathy, cervical region; M79.18 Myalgia, other site
CPT/HCPCS: G0463

== ENCOUNTER 2025-01-30 07:51 | Outpatient (OUT) | payer MEDICARE, OTHER, SELFPAY ==
--- OUTSIDE RECORDS SUMMARY | 2024-04-25 05:30 | XMS_ITS | Encounter Summary ---
Author Name [facility] Organization [facility] Address [address] [place] [address] Care Team Providers Care Power Plant Operator Name Role Phone ERIC HAWLEY Unavailable Unavailable Insurance Providers: All historical and current Section Date Range: From patient's date of to the date document was created. This section includes the names of all active insurance providers for the patient. Insurance Provider Type of Coverage Plan Name Start of Policy Coverage End of Policy Coverage Group Number Member ID Insurance Provider's Telephone Number Policy Cavazos's Name Patient's Relationship to Policy Cavazos [employer] MEDIC[employer] SUPPLEMEN AVELINO MCCRARY IDUAL MED SUPP Jul 17, 2012 [id number] OTILIA ONEIL PATIENT MEDICARE (WNR) MEDICARE (M) PART B Jul 17, 2012 PART B [id number] OTILIA ONEIL PATIENT MEDICARE (WNR) MEDICARE (M) PART A Jan 14, 2011 PART A [id number] [phone] OTILIA ONEIL PATIENT Selected Encounter This section includes the information on record at [place] for the Encounter. Date/Time Encounter Type Encounter Description Reason Provider Source Apr 25, 2024 09:30 AM OFFICE O/P EST MOD 30 MIN PRIMARY CARE/MEDICINE ICD-10-CM E11.9 Type 2 diabetes mellitus without complications EMMANUELLE SOTO Encounter Template Text not used by [facility] Assessments - Encounter Diagnoses This section includes the primary and secondary diagnoses documented for the Encounter. Date/Time Primary/Secondary Diagnosis Diagnosis Name Provider Source Apr 25, 2024 10:06 AM PRIMARY Type 2 diabetes mellitus without complications EMMANUELLE SOTO CB Apr 25, 2024 10:06 AM SECONDARY Anisocoria [facility] Apr 25, 2024 10:06 AM SECONDARY Athscl heart disease of [place] coronary artery w/o ang pctrs [facility] Apr 25, 2024 10:06 AM SECONDARY Encounter for immunization MARK BROCK [facility] Apr 25, 2024 10:06 AM SECONDARY Essential (primary) hypertension [facility] Apr 25, 2024 10:06 AM SECONDARY Hyperlipidemia, unspecified [facility] Apr 25, 2024 10:06 AM SECONDARY Malignant neoplasm of prostate [facility] Apr 25, 2024 10:06 AM SECONDARY Obesity, unspecified [facility] Apr 25, 2024 10:06 AM SECONDARY Sleep apnea, unspecified EMMANUELLE SOTO Jesus [facility] Lab Results: +/- 30 days of the encounter This section includes the Chemistry and Hematology Lab Results on record with [facility] for the patient. Radiology Reports and Pathology Reports are provided separately, in subsequent sections. Lab Results This section contains the Chemistry/Hematology Results that were resulted 30 days before or 30 daysafter the date of the Encounter. Date/Time Source Result Type Result - Unit Interpretation Reference Range Specimen Type Comment Apr 15, 2024 08:29 AM [facility] HEMOGLOBIN A1C BLOOD Specimen Type: BLOOD Comment: Values obtained from A1C measurements can vary. For typical A1C assays, a reported value of 7.0 could actually be between 6.72 and 7.28 if measured by a reference method. A reported value of 9.0 could actually be between 8.73 and 9.27. Ref: http://www.ngsp. org/CAPdata.asp Ordering Provider: EMMANUELLE SOTO Report Released Date/Time: Apr 27, 2023 08:49 AM Reporting Lab: [address] [address] Performing Lab: [address] [address] HEMOGLOBIN A1C 5.5 3.6-5.7 Apr 15, 2024 08:29 AM [facility] LIPID PROFILE PLASMA Specimen Type: PLASMA Comment: DLDLREF RANGE: NEAR OR ABOVE OPTIMAL: 100-129 mg/dL BORDERLINE DLDLHIGH: 130-159 mg/dL HIGH: 160-189 mg/dL VERY HIGH: >=190 TRIG REF RANGE: BORDERLINE HIGH: 150-199 mg/dL HIGH: 200-499 mg/dL TRIG VERY HIGH: >=500 mg/dL CREA eGFR was calculated using the CKD-EPI 2020 equation. CHOL REF RANGE: BORDERLINE HIGH: 200-239 mg/dL HIGH: >=240 mg/dL Ordering Provider: EMMANUELLE SOTO Report Released Date/Time: Apr 27, 2023 08:49 AM Reporting Lab: [address] [id number] Performing Lab: [address] [address] CHOLESTEROL 132 mg/dL <199 LDL CHOLESTEROL 79 mg/dL <99 HDL CHOLESTEROL 40 mg/dL L >60 TRIGLYCERIDE 165 mg/dL H <149 Apr 15, 2024 08:29 AM [facility] MAGNESIUM PLASMA Specimen Type: PLASMA Comment: DLDLREF RANGE: NEAR OR ABOVE OPTIMAL: 100-129 mg/dL BORDERLINE DLDLHIGH: 130-159 mg/dL HIGH: 160-189 mg/dL VERY HIGH: >=190 TRIG REF RANGE: BORDERLINE HIGH: 150-199 mg/dL HIGH: 200-499 mg/dL TRIG VERY HIGH: >=500 mg/dL CREA eGFR was calculated using the CKD-EPI 2020 equation. CHOL REF RANGE: BORDERLINE HIGH: 200-239 mg/dL HIGH: >=240 mg/dL Ordering Provider: EMMANUELLE SOTO Report Released Date/Time: Apr 27, 2023 08:49 AM Reporting Lab: [address] [phone] Performing Lab: [place] [phone] MAGNESIUM 2.1 mg/dL 1.6-2.6 Apr 15, 2024 08:29 AM [facility] PROSTATE SPECIFIC ANTIGEN SERUM Speci men Type: SERUM No comment entered. Ordering Provider: EMMANUELLE SOTO Report Released Date/Time: Apr 27, 2023 08:49 AM Reporting Lab: [address] [address] Performing Lab: [place] [phone] PROSTATE SPECIFIC ANTIGEN 0.16 ng/mL <4. 00 Apr 15, 2024 08:29 AM [facility] COMPREHENSIVE METABOLIC PANEL PLASMA S pecimen Type: PLASMA Comment: DLDLREF RANGE: NEAR OR ABOVE OPTIMAL: 100-129 mg/dL BORDERLINE DLDLHIGH: 130-159 mg/dL HIGH: 160-189 mg/dL VERY HIGH: >=190 TRIG REF RANGE: BORDERLINE HIGH: 150-199 mg/dL HIGH: 200-499 mg/dL TRIG VERY HIGH: >=500 mg/dL CREA eGFR was calculated using the CKD-EPI 2020 equation. CHOL REF RANGE: BORDERLINE HIGH: 200-239 mg/dL HIGH: >=240 mg/dL Ordering Provider: EMMANUELLE SOTO Report Released Date/Time: Apr 27, 2023 08:49 AM Reporting Lab: [address] [phone] Performing Lab: [place] [phone] ALBUMIN 4.2 g/dL 3.2-4.6 ALKALINE PHOSPHATASE 69 U/L 40-150 ALT/SGPT 21 U/L <55 AST/SGOT 25 U/L 5-34 BUN 13 mg/dL 8.4-25.7 CALCIUM 9.7 mg/dL 8.8-10.0 CREATININE 0.8 mg/dL 0.72-1.25 CO2 23 mmol/L 23-31 GLUCOSE 111 mg/dL 82-115 PROTEIN, TOTAL 6.7 g/dL 6.4-8.3 SODIUM 138 mmol/L 136-145 CHLORIDE 105 mmol/L 98-107 BILIRUBIN, TOTAL 1.1 mg/dL 0.2-1.2 POTASSIUM 4.9 mmol/L 3.5-5.1 ANION GAP 14.9 mmol/L 10-20 EGFR (CALCULATED) 91.0 mL/min Apr 15, 2024 08:29 AM [facility] MICROALBUMIN/CREATININE RATIO PANEL URINE Specimen Type: URINE No comment entered. Ordering Provider: EMMANUELLE SOTO Report Released Date/Time: Apr 27, 2023 08:49 AM Reporting Lab: [address] [phone] Performing Lab: [facility] [id number] [facility] [phone] MICROALBUMIN, URINE RANDOM 2 mg/dL <10 CREATININE, URINE RANDOM 52.94 mg/dL MICROALB/CREAT RATIO 37.80 mg/g H <19.9 Apr 15, 2024 08:29 AM [facility] CBC BLOOD Specimen Type: BLOOD No comment entered. Ordering Provider: EMMANUELLE SOTO Report Released Date/Time: Apr 27, 2023 08:49 AM Reporting Lab: [facility] [id number] [facility] [phone] Performing Lab: [facility] [address] [facility] [phone] WBC COUNT 6.2 10*3/uL 3.6-11.0 RBC COUNT 3.72 10*6/uL L 4.47-5.83 HGB 12.2 g/dL L 13.6-17.4 HCT 35.8 L 40.0-51.0 MCV 96.3 fL H 80.0-96.0 MCH 32.8 pg H 27.0-31.0 MCHC 34.1 g/dL 31.5-36.5 PLT 194 10*3/uL 150-400 LYMPHS % 30.0 21.0-51.0 MONOCYTES % 10.3 H 4.0-8.0 NUCLEATED RBC/100WBC 0.0 /100{WBCs} RDW 13.5 11.2-15.8 NEUTROPHIL % 51.3 L 54.0-78.0 EOSINOPHIL % 7.8 H 0.0-3.0 BASOPHIL % 0.6 0.0-3.0 ABSOLUTE LYMPHOCYTE COUNT 1.8 10*3/uL 0. 8-5.0 ABSOLUTE NEUTROPHIL COUNT 3.2 10*3/uL 1. 9-8.6 ABSOLUTE BASOPHIL COUNT 0.0 10*3/uL 0.0- 0.3 ABSOLUTE MONOCYTE COUNT 0.6 10*3/uL 0.1- 0.9 ABSOLUTE EOSINOPHIL COUNT 0.5 10*3/uL H 0. 0-0.3 MPV 8.9 fL 7.4-11.4 Immunizations: All administered on the encounter date This section contains immunizations associated to the Encounter. Immunization Series Date Issued Administered By Site Reaction Lot Number CVX Code Drug Chemical Engineering Teacher Comment(s) Source TDAP Apr 25, 2024 MARK BROCK DELTO ID [id number] LATIA Pate AT [place], Patient tolerated injection well. [facility] Social History: Smoking Status (Most current) and Tobacco Use (All prior to encounter date) This section includes the most current, and the historical, smoking and tobacco- related health factors from the [place] facility where the Encounter took place. Current Smoking Status This section includes the most current smoking, or tobacco-related health factor, from the [place] facility where the Encounter took place. Date/Time Current Smoking Status Comment Facil ity Apr 25, 2024 09:30 AM [facility]-TOBACCO NEVER USED [facility] Tobacco Use History This section includes a history of the smoking, or tobacco-related health factors, that were collected on or before the date of the Encounter. The data comes from the [place] facility where the Encounter took place. Date/Time Smoking Status/Tobacco Use Comment F acility Apr 27, 2023 08:30 AM VA-TOBACCO NEVER USED [facility] Apr 28, 2022 08:00 AM VA-TOBACCO FORMER USER [facility] Apr 28, 2022 08:00 AM VA-TOBACCO QUIT 15 YRS OR MORE [facility] May 06, 2021 08:00 AM VA-TOBACCO FORMER USER [facility] May 06, 2021 08:00 AM VA-TOBACCO QUIT 15 YRS OR MORE [facility] Jun 11, 2018 07:49 AM VA-TOBACCO NEVER USED [facility] Jun 09, 2008 11:09 AM QUIT TOBACCO >7 YEARS AGO [facility] May 29, 2007 08:14 AM LIFETIME NON-USER OF TOBACCO [facility] Jul 24, 2006 08:06 AM LIFETIME NON-USER OF TOBACCO [facility] Jul 24, 2006 08:06 AM TOBACCO OFFERRED STOP SMOKING CL INIC [facility] Aug 23, 2004 01:36 PM TOBACCO LIFELONG NON USER [facility] Jul 23, 2003 09:23 AM TOBACCO [place] NON USER [facility] Jul 03, 2002 02:57 PM TOBACCO [place] NON USER [facility] Encounter Notes: All associated encounter notes This section contains the clinical notes associated to the Encounter. Date/Time Encounter Note(s) Provider Source Apr 25, 2024 11:02 AM NURSING MEDICATION MGT NOTE: LOCAL TITLE: MEDICATION ADMINISTRATION NOTE (T) STANDARD TITLE: NURSING MEDICATION MGT NOTE DATE OF NOTE: APR 25, 2024@11:02 ENTRY DATE: APR 25, 2024@11:02:27 AUTHOR: MARK BROCK EXP COSIGNER: URGENCY: STATUS: COMPLETED Immunization Documentation: Administered: TDAP Date Administered: Apr 25, 2024 10:15 Chemical Engineering Teacher: Sh[place] Lot: [id number] Exp Date: Apr 27, 2026 [facility]: [id number] Admin Route/Site: INTRAMUSCULAR/RIGHT DELTOID Dosage: 0.5mL Vaccine Information Statement(s): TDAP (TETANUS, DIPHTHERIA, PERTUSSIS) VACCINE VIS Feb 19, 2021 (IRISH) Order By: Policy Administered By: Mark Brock Comment: Patient tolerated injection well. The following education was provided: Immunization Administration Education: The patient and/or access services representative was given the corresponding VIS which lists the benefits and side effects of the vaccine and which reviews the risks of not receiving the vaccine. The VIS was reviewed with the patient and/or access services representative and they were given an opportunity to ask questions. The patient and/or access services representative was provided education on how to decrease the risk of infection including social distancing and use of good hand hygiene. The patient and/or access services representative denied any prior severe reaction to the vaccine or its components. The patient and/or access services representative gave verbal consent to receive the vaccine. /akash/ MARK BROCK LICENSED PRACTICAL NURSE Signed: 04/25/2024 11:03 MARK BROCK [facility] Apr 25, 2024 09:43 AM INTERNAL MEDICINE OUTPATIENT NOTE: LOCAL TITLE: PRIMARY CARE OUTPATIENT NOTE (T) STANDARD TITLE: INTERNAL MEDICINE OUTPATIENT NOTE DATE OF NOTE: APR 25, 2024@09:43 ENTRY DATE: APR 25, 2024@09:43:21 AUTHOR: EMMANUELLE SOTO EXP COSIGNER: URGENCY: STATUS: COMPLETED In-person Note Emergency contact number obtained/confirmed. 79yo [place] Reason for Visit: cc: annual visit. states had bilat carpal tunnel surg per dr. nichole at [facility]. cont with current meds. trying to watch diet. staying active doing yard work, working in workshop etc. denies any use of tobacco products. aver 1 drink/day. cont bipap nightly hpi: 79y w/m with hx of dm with obesity, htn, hld, lori, cad with hx of of 3v cabg and CaP. lmd - dr. davila. uro - dr. cuenca. pulm - dr. calvo. gi - dr. larson 10 Active Problems PROBLEM LAST MOD PROVIDER Diabetes mellitus 06/11/2018 CHARLESEMMANUELLE Essential hypertension 06/12/2017 CHARLES,EMMANUELLE R Hyperlipidemia 06/12/2017 CHARLES,EMMANUELLE R Sleep apnea 06/12/2017 CHARLES,EMMANUELLE R Anisocoria 06/12/2017 CHARLES,EMMANUELLE R Obesity 06/12/2017 CHARLES,EMMANUELLE R Coronary arteriosclerosis 06/01/2016 HARVINDER TORIBIO Cabg X 3 (07/2014) Primary malignant neoplasm of prostate 06/01/2016 HARVINDER TORIBIO PROSTATECTOMY 10/2014 HTN * (ICD-9-CM 401.9) 06/25/2001 [facility] Hyperlipidemia * (ICD-9-CM 272.4) 06/25/2001 HARVINDER TORIBIO REVIEW OF SYSTEMS: const: (-) fever (-)chills (-)fatigue (-) changes in weight (-)night sweats heent: (-)headache (-)vision changes (-)hearing changes (-)tinnitis (-) earache (-)sore throat (-)nasal congestion (-)dysphagia (-odynophagia (-)hoarseness neck: (-)pain (-)stiffness (-)swelling lymph: (-)swollen (-)tender (-) cervical (-)axillary (-)inguinal endo: (-)polyuria (-)polydipsia (-)polyphagia (-)fatigue (-)weight gain/loss (-)heat or cold intolerance cor: (-)cp (-)sob (-)dizziness (-)palpitations (-)rosales (-)edema (-)pnd (-)rosales ()orthopnea pulm: (-)cough (-)congestion (-)sob (-)wheezing (-)pain with breathing (-)hemoptysis gi: (-)abd pain (-)nausea (-)vomitting (-)dysphagia (-)constipation (-) diarrhea (-)blood in stool (-)change in stool (-)dark stools (-)mucus in stool gu: (-)dysuria (-)frequency (-)urgency (-)malodorous (-)dribbling (-) hematuria (-)nocturia msk: (-)muscle pain (-)weakness (-)spasms (-)muscle tone (-)back pain (-)joint pain neuro: (-)headache (-)change in vision (-)weakness (-)change in memory (-)seizures (-)abnormal movements (-) tremors (-)radiculopathy integ: (-)rash (-)lesions (-)itching (-)xerosis psyche: (-)anxiety (-)depression (-)ptsd PATIENT ALLERGIES DETAILED ALLERGIES/ADVERSE REACTIONS Type: DRUG Date/Time Reactant Severity Reaction 07/05/2002 12:52 SIMVASTATIN UNKNOWN 06/25/2001 15:40 PENICILLIN HIVES AMRS - MEDS (REC SUCCINCT) Active and Recently Inpatient, Outpatient and Clinic Medications (including Supplies): Active Non-VA Medications Status ======= 1) Non-VA ASPIRIN 81MG EC TAB 81MG MOUTH EVERY DAY ACTIVE 2) Non-VA ATORVASTATIN CALCIUM 40MG TAB 40MG MOUTH AT ACTIVE BEDTIME 3) Non-VA CALCIUM CITRATE 200MG/VIT D 250 UNIT TAB 2 ACTIVE TABLETS MOUTH EVERY DAY 4) Non-VA ENZALUTAMIDE 40MG TAB 160MG MOUTH EVERY ACTIVE MORNING 5) Non-VA GLIMEPIRIDE 1MG TAB 0.5MG MOUTH EVERY MORNING, ACTIVE WITH BREAKFAST 6) Non-VA HCTZ 12.5/LISINOPRIL 20MG TAB 1 TABLET MOUTH ACTIVE EVERY DAY 7) Non-VA METFORMIN HCL 1000MG TAB 1000MG MOUTH EVERY ACTIVE DAY 8) Non-VA METOPROLOL TARTRATE 25MG TAB 25MG MOUTH TWICE ACTIVE A DAY 9) Non-VA MULTIVITAMINS/MINERALS CAP/TAB 1 CAP/TAB ACTIVE EVERY DAY PHYSICAL EXAM: Vital Signs: T: 98.5 F [36.9 C] (04/25/2024 09:28) P: 51 (04/25/2024 09:28) R: 16 (04/25/2024 09:28) BP: 124/72 (04/25/2024 09:28) Pain: 4 (04/25/2024 09:34) Height: 66 in [167.6 cm] (04/27/2023 08:24) Weight: 202.5 lb [91.85 kg] (04/25/2024 09:28) Pulse Ox: 97% (04/25/2024 09:28) PE gen: 79y w/m alert ox4, well-groomed and dressed, ambulatory without assistive devices heent: normocephalic anicteric anisocoria eomi. (+)corrective lenses. hx of anisicoria with right pupil larger than left. nares patent. eacs and tms without calvin, bulging or retractions. oral mucosa/hypopharynx moist and pink. uvula midline. no oral lesions noted neck: supple. trachea midline. no bruits noted lymph: no ant/post cerv adenopathy noted endo: no thyromegaly noted cor: hrrr with a soft m noted, no c or g. very soft heart tones chst: ctab. chest symm abd: obese, soft, nt, nd, bs x4 ausc. no organomegaly/bruits noted msk: (+)5/5 ue/le prox and distally integ: no rashes noted. (+)sks and aks noted neuro: pt alert ox4, perrla, eomi, cn 2 - 12 intact. gait normal. no tremors or abnormal movements noted psyche: mood/affect appropriate. recent and remote memory intact ASSESSMENT/PLAN: 1) dm with obesity - 5.5. cont with current meds. monitor bs. reviewed a heart healthy/ada diet. daily exercise 2) hypertension - well-controlled on current meds 3) ejpdkqzeuwpwag-nzal-jlvqeqgter 4) lori-cont with bipap nightly 5) hx of cad with 3v cabg- asym. cont with current meds. 6) CaP- followed per uro. lab reviewed with pt 7) hx of bilat carpal tunnel repair 8) meds and labs reviewed with pt. copies provided to pt 9) reviewed a heart healthy/diab diet of no added salt, diet low in fat, chol and processed foods. increase fluids, fruits, veg, fiber and bran in diet. daily exercise for 30 min, increase as tolerated. emphasis on safety HEALTH MAINTENANCE/CLINICAL REMINDERS: Clinical Reminders Activity Sexual Orientation: The patient thinks of their sexual orientation as: Straight or Heterosexual MEDICATION RECONCILIATION Medication Reconciliation report reviewed and discussed with patient/caregiver. VA prescription medications, non-VA prescription medications, OTC and herbal medications reviewed: Patient/caregiver verifies that the list is complete and accurate and voices understanding. FOLLOW-UP: annual with labs 1-2 wks prior including cbc, cmp, mg, lipids, a1c, psa and microalb I am the Attending Physician. TOTAL TIME SPENT: Spent 23 minutes in care of this patient today including review of records, exam, and placing orders. /akash/ EMMANUELLE SOTO PHYSICIAN Signed: 04/25/2024 10:07 [facility] Apr 25, 2024 09:30 AM PRIMARY CARE NURSI NOTE: LOCAL TITLE: OUTPATIENT NURSING INTAKE NOTE (T) STANDARD TITLE: PRIMARY CARE NURSING NOTE DATE OF NOTE: APR 25, 2024@09:30 ENTRY DATE: APR 25, 2024@09:30:14 AUTHOR: MARK BROCK COSIGNER: URGENCY: STATUS: COMPLETED OUTPATIENT NURSING INTAKE NOTE (T) Has ADDENDA Hemoglobin A1C Results: Collection DT Specimen Test Name Result Units Ref Range 04/15/2024 08:24 BLOOD HEMOGLOBIN A1C 5.5 % 3.6 - 5.7 Comment: Values obtained from A1C measurements can vary. For typical A1C Comment: assays, a reported value of 7.0 could actually be between 6.72 and Comment: 7.28 if measured by a reference method. A reported value of 9.0 Comment: could actually be between 8.73 and 9.27. Ref: Comment: http://www.ngsp.org/CAPdata.asp 04/20/2023 09:27 BLOOD HEMOGLOBIN A1C 5.9 H % 3.6 - 5.7 Comment: Values obtained from A1C measurements can vary. For typical A1C Comment: assays, a reported value of 7.0 could actually be between 6.72 and Comment: 7.28 if measured by a reference method. A reported value of 9.0 Comment: could actually be between 8.73 and 9.27. Ref: Comment: http://www.ngsp.org/CAPdata.asp 04/21/2022 09:40 BLOOD HEMOGLOBIN A1C 6.1 H % 3.6 - 5.7 Review Allergies Allergies reviewed and updated per protocol. ALLERGIES/ADVERSE REACTIONS Type: DRUG Date/Time Reactant Severity Reaction 07/05/2002 12:52 SIMVASTATIN UNKNOWN 06/25/2001 15:40 PENICILLIN HIVES MEDICATION LIST REVIEW REPORT Patient states no change in documented OTC/Herbals at this visit. 1. Has the patient been feeling sad or distressed? No 2. Has the patient been having personal or family problems? No 3. Has the patient been experiencing worry and/or stress? No 4. Has the patient been having problems with drugs and/or alcohol? No 5. Crisis Line pocket card was provided to patient. Yes [facility] ('s [place], [employer]) What matters most to you? Comment: Tomorrow Clinical Reminders Activity Alcohol Use Screen (AUDIT-C): Alcohol Screen: SCREEN FOR ALCOHOL (AUDIT-C) An alcohol screening test (AUDIT-C) was negative (score=3). 1. How often did you have a drink containing alcohol in the past year? Consider a drink to be a 12 ounce can or bottle of regular beer, 8 ounces of malt liquor, a 5 ounce glass of table wine, or a 1.5 ounce shot of liquor (like scotch, gin, or vodka). Two to three times per week 2. How many drinks containing alcohol did you have on a typical day when you were drinking in the past year? One or two drinks 3. How often did you have six or more drinks on one occasion in the past year? Never COVID-19 Immunization: Refused Pfizer Monovalent COVID-19 vaccine Immunization: COVID-19 (PFIZER), MRNA, LNP-S, PF, KAROLINA-SUCROSE, 30 MCG/0.3 ML (AGES 12+ YEARS) Refusal Reason: PATIENT DECISION Patient refuses all immunization(s) in the COVID-19 group Comment: Patient prefers Moderna vaccine Date Documented: 04/25/24 09:32 Depression Screening: Perform PHQ-2 A PHQ-2 screen was performed. The score was 0 which is a negative screen for depression. Over the past two weeks, how often have you been bothered by the following problems? 1. Little interest or pleasure in doing things Not at all 2. Feeling down, depressed, or hopeless Not at all Fall Screen: Patient was asked if he/she has had any falls within the past 12 months. Patient reports one fall in past 12 months without injury. Teaching Method: Verbal discussion Education Topic: Falls Risk Level of Understanding: Good Foot Exam: PAVE: Frail/Elderly Screen: ADL Screen Record INDEX of ADL. Score = 18 1. Bathing: either sponge bath, tub bath or shower. Receives no assistance (gets in and out of tub by self, if tub is usual means of bathing). 2. Dressing: gets clothes from closets and drawers, including under-clothes, outer garments and using fasteners (including braces if worn). Gets clothes and dresses self without assistance. 3. Toileting: going to the toilet room for bowel and urine elimination; cleaning self after elimination and arranging clothes. (May use cane, walker, or wheelchair, and manage bedpan or commode, emptying same next morning). No assistance needed. 4. Transfer: Moves in and out of bed, or chair, without assistance (may use support object like cane or walker). 5. Continence: Controls urination and bowel movement completely by self. 6. Feeding: Feeds self without assistance. IADL Screen: Ability to use telephone: (1 point) Operates Telephone on own initiative; looks up and dials numbers. Shopping: (1 point) Takes care of all shopping needs independently. Food preparation: (1 point) Plans, prepares, and serves adequate meals independently. Housekeeping: (1 point) Maintains house alone with occasional assistance (heavy work). Laundry: (1 point) Does personal laundry completely. Mode of transportation: (1 point) Travels independently on public transportation or drives own car. Responsibility for own medications: (1 point) Is responsible for taking medications in correct dosages at correct times. Ability to handle finances: (1 point) Manages financial matters independently (budgets, writes checks, pays rent and bills, goes to bank); collects and keeps track of income. Total score: 8 points 8 = High function, independent 0 = Low function, dependent Homelessness/Food Insecurity Screen: In the past 2 months, have you been living in stable housing that you own, rent, or stay in as part of a household? Yes - Living in stable housing. Are you worried or concerned that in the next 2 months you may NOT have stable housing that you own, rent, or stay in as part of a household? No - Not worried about housing near future The reports the following: Within the past 12 months, you worried whether your food would run out before you got money to buy more. Never true Within the past 12 months, the food you bought just didn't last and you didn't have money to get more. Never true Pain, Brief Evaluation: Type of pain: New Location: Left hand Intensity: Currently: 4 Usually: 0 Description of Pain: Sore Evaluation: Patient declines pain evaluation today. Patient Education Documentation: LEARNING NEEDS ASSESSMENT: Learning Preference: Hands-on Barriers to Learning: No Barriers to Learning Social Influences Related to Educational Needs: No social barriers to learning Suicide Screen: C-SSRS Screening [place] Suicide Severity Rating Scale (C-SSRS) screener 1. Over the past month, have you wished you were or wished you could go to sleep and not wake up? No 2. Over the past month, have you had any actual thoughts of killing yourself? No 3. Over the past month, have you been thinking about how you might do this? Response not required due to responses to other questions. 4. Over the past month, have you had these thoughts and had some intention of acting on them? Response not required due to responses to other questions. 5. Over the past month, have you started to work out or worked out the details of how to kill yourself? Response not required due to responses to other questions. 6. If yes, at any time in the past month did you intend to carry out this plan? Response not required due to responses to other questions. 7. In your lifetime, have you ever done anything, started to do anything, or prepared to do anything to end your life (for example, collected pills, obtained a gun, gave away valuables, went to the roof but didn't jump)? No 8. If YES, was this within the past 3 months? Response not required due to responses to other questions. Tobacco Use Screening: The patient has never used tobacco. /akash/ MARK BROCK LICENSED PRACTICAL NURSE Signed: 04/25/2024 09:38 04/25/2024 ADDENDUM STATUS: COMPLETED Clinical Reminders Activity Foot Exam: PAVE: The foot check was not completed. : Patient declines and states his feet are good. /akash/ MARK BROCK LICENSED PRACTICAL NURSE Signed: 04/25/2024 09:39 MARK BROCK OC
--- OUTSIDE RECORDS SUMMARY | 2024-12-27 04:23 | XMS_ITS | Continuity of Care Document ---
Author Name [facility] Organization [facility] Care Team Providers Care Gate Cutter Name Role Phone [facility] Unavailable Unavailable Problems Combined list of problems [...] ORAL ACTIVE EMMANUELLE SOTO 2021 [facility] CALCIUM CITRATE 200MG/VITAM IN D 250UNT TAB TAKE TWO TABLETS BY MOUTH EVERY DAY ORAL ACTIVE EMMANUELLE SOTO 2021 [facility] ENZALUTAMID E 40MG TAB TAKE FOUR TABLETS BY MOUTH EVERY MORNING ORAL ACTIVE EMMANUELLE SOTO 2021 [facility] GLIMEPIRIDE 1MG TAB TAKE ONE-HALF TABLET BY MOUTH EVERY MORNING, WITH BREAKFAS T ORAL ACTIVE EMMANUELLE SOTO 2020 [facility] HYDROCHLORO THIAZIDE 12.5MG/JOEL NOPRIL 20MG TAB TAKE ONE TABLET BY MOUTH EVERY DAY ORAL ACTIVE HARVINDER TORIBIO 2014 [facility] METFORMIN HCL 1000MG TAB TAKE ONE TABLET BY MOUTH EVERY DAY ORAL ACTIVE EMMANUELLE SOTO 2020 [facility] METOPROLOL TARTRATE 25MG TAB TAKE ONE TABLET [...] reactions to drug (finding) HIVES active [address] [facility] SIMVASTATIN Propensity to adverse reactions to drug (finding) active [address] [facility] Immunizations Combined list of available immunizations from the Department of Defense and Veterans Affairs facilities. Immunization Series Date Given Administered By Site Reaction Lot Number CVX Code Drug Law Firm Receptionist Status Comments Source TDAP 2023 SANA FOX RIGHT DELTO ID [id number] 115 complet ed [place], Patient tolerated injection well. [facility] INFLUENZA, HIGH-DOSE, TRIVALENT, PF 4 2023 135 complet ed HISTORICA L INFORMATI ON - FROM OTHER REGISTRY, [facility] INFLUENZA, HIGH-DOSE, QUADRIVALENT 3 2021 197 complet ed HISTORICA L INFORMATI ON - FROM OTHER REGISTRY, [facility] COVID-19 (MODERNA), MRNA, LNP-S, BIVALENT, PF, 50 MCG/0.5 ML OR 25MCG/0.25 ML DOSE 5 2021 229 complet ed HISTORICA L INFORMATI ON - FROM OTHER REGISTRY, [facility] COVID-19 (MODERNA), MRNA, LNP-S, PF, 100 MCG/0.5ML DOSE OR 50 MCG/0.25ML DOSE 4 2021 207 complet ed HISTORICA L INFORMATI ON - FROM OTHER REGISTRY, [facility] COVID-19 (MODERNA), MRNA, LNP-S, PF, 100 MCG/0.5ML DOSE OR 50 MCG/0.25ML DOSE 3 2020 207 complet ed HISTORICA L INFORMATI ON - FROM OTHER REGISTRY, [facility] INFLUENZA, UNSPECIFIED FORMULATION 2020 88 complet ed [facility] COVID-19 (MODERNA), MRNA, LNP-S, PF, 100 MCG/0.5ML DOSE OR 50 MCG/0.25ML DOSE 2 2020 207 complet ed HISTORICA L INFORMATI ON - FROM OTHER REGISTRY, [facility] COVID-19 (MODERNA), MRNA, LNP-S, PF, 100 MCG/0.5ML DOSE OR 50 MCG/0.25ML DOSE 1 2020 207 complet ed HISTORICA L INFORMATI ON - FROM OTHER REGISTRY, [facility] INFLUENZA (HISTORICAL) 2018 88 complet ed civ PCP (Dr. Jones) [facility] ZOSTER RECOMBINANT 2018 187 complet ed [facility]OST[facility] RECOMBINANT 2017 187 complet ed [facility] INFLUENZA (HISTORICAL) 2017 [address] complet [address] [facility]CP [facility]. Jones in [facility] INFLUENZA, TRIVALENT, ADJUVANTED 2 2017 168 complet ed HISTORICA L INFORMATI ON - FROM OTHER REGISTRY, [facility] PNEUMOCOCCAL POLYSACCHARID E PPV23 2016 33 complet ed [facility] INFLUENZA, INJECTABLE, QUADRIVALENT, PRESERVATIVE FREE 2016 150 complet ed HISTORICA L INFORMATI ON - FROM OTHER REGISTRY, [facility] INFLUENZA, HIGH DOSE SEASONAL 1 2016 135 complet ed HISTORICA L INFORMATI ON - FROM OTHER REGISTRY, [facility] INFLUENZA (HISTORICAL) [address] Jones [facility] INFLUENZA (HISTORICAL) 2015 88 complet ed Private pcp [facility] INFLUENZA, SEASONAL, INJECTABLE, PRESERVATIVE FREE 2014 140 complet ed [facility] INFLUENZA, UNSPECIFIED FORMULATION 2014 88 complet ed [facility] PNEUMOCOCCAL CONJUGATE PCV 13 2014 133 complet ed see chart [facility] PNEUMOCOCCAL POLYSACCHARID E PPV23 2014 33 complet ed HISTORICA L INFORMATI ON - FROM OTHER REGISTRY, [facility] INFLUENZA, SEASONAL, INJECTABLE, PRESERVATIVE FREE 2013 140 complet ed [facility] INFLUENZA, UNSPECIFIED FORMULATION 2013 88 complet ed [facility] DTAP, UNSPECIFIED FORMULATION 2012 107 complet ed [facility] INFLUENZA, UNSPECIFIED FORMULATION 2012 88 complet ed [facility] ZOSTER LIVE 1 2011 121 complet ed HISTORICA L INFORMATI ON - FROM OTHER REGISTRY, [facility] INFLUENZA, UNSPECIFIED FORMULATION 2011 88 complet ed [facility] INFLUENZA, UNSPECIFIED FORMULATION 2010 88 complet ed [facility] PNEUMOCOCCAL, UNSPECIFIED FORMULATION 2009 109 complet ed [facility] PNEUMOCOCCAL POLYSACCHARID E PPV23 1 2009 33 complet ed HISTORICA L INFORMATI ON - FROM OTHER REGISTRY, [facility] INFLUENZA (HISTORICAL) 2009 88 complet ed [facility] [...] Apr 27, 2023 08:49 AM Reporting Lab: [place] [id number] Performing Lab: [place] [id number] LIPID PROFILE CHOLESTEROL [MASS/VOLUM E] IN [...] Apr 27, 2023 08:49 AM Reporting Lab: [place] [id number] Performing Lab: [place] [id number] [facility] LIPID PROFILE CHOLESTEROL IN LDL [MASS/VOLUM [...] Apr 27, 2023 08:49 AM Reporting Lab: [place] [id number] Performing Lab: [place] [id number] [place] [address] LIPID PROFILE CHOLESTEROL IN HDL [MASS/VOLUM E] [...] Apr 27, 2023 08:49 AM Reporting Lab: [place] [id number] Performing Lab: [place] [id number] [place] [address] LIPID PROFILE TRIGLYCERID E [MASS/VOLUM E] IN [...] Apr 27, 2023 08:49 AM Reporting Lab: [place] [id number] Performing Lab: [place] [phone] [facility] MAGNESIUM MAGNESIUM [MASS/VOLUM E] IN SERUM [...] Apr 27, 2023 08:49 AM Reporting Lab: [place] [id number] Performing Lab: [address] PROSTATE SPECIFIC ANTIGEN PROSTATE SPECIFIC AG [MASS/VOLUM E] IN SERUM OR PLASMA 0.16 ng/mL <4.00 - 4.00 04/15 Specimen Type: SERUM No comment entered. Ordering Provider: YAIMA SOTO Report Released Date/Time: Apr 27, 2023 08:49 AM Reporting Lab: [place] [phone] Performing Lab: [place] [id number] COMPREHEN SIVE METABOLIC PANEL ALBUMIN [MASS/VOLUM [...] Apr 27, 2023 08:49 AM Reporting Lab: [place] [id number] Performing Lab: [place] [phone] [facility] COMPREHEN SIVE METABOLIC PANEL ALKALINE PHOSPHATASE [...] Apr 27, 2023 08:49 AM Reporting Lab: [place] [phone] Performing Lab: [place] [id number] [place] [address] COMPREHEN SIVE METABOLIC PANEL ALANINE AMINOTRANSF ERASE [...] Apr 27, 2023 08:49 AM Reporting Lab: [place] [id number] Performing Lab: [place] [id number] [place] [address] COMPREHEN SIVE METABOLIC PANEL ASPARTATE AMINOTRANSF ERASE [...] Apr 27, 2023 08:49 AM Reporting Lab: [place] [id number] Performing Lab: [place] [phone] [facility] COMPREHEN SIVE METABOLIC PANEL UREA NITROGEN [...] Apr 27, 2023 08:49 AM Reporting Lab: [place] [phone] Performing Lab: [place] [phone] [facility] COMPREHEN SIVE METABOLIC PANEL CALCIUM [MASS/VOLUM [...] Apr 27, 2023 08:49 AM Reporting Lab: [place] [id number] Performing Lab: [address] COMPREHEN SIVE METABOLIC PANEL CREATININE [MASS/VOLUM [...] Apr 27, 2023 08:49 AM Reporting Lab: [place] [id number] Performing Lab: [address] SIVE METABOLIC PANEL CARBON DIOXIDE, TOTAL [...] Apr 27, 2023 08:49 AM Reporting Lab: [place] [id number] Performing Lab: [place] [phone] [facility] COMPREHEN SIVE METABOLIC PANEL GLUCOSE [MASS/VOLUM [...] Apr 27, 2023 08:49 AM Reporting Lab: [place] [phone] Performing Lab: [place] [phone] [facility] COMPREHEN SIVE METABOLIC PANEL PROTEIN [MASS/VOLUM [...] Apr 27, 2023 08:49 AM Reporting Lab: [place] [phone] Performing Lab: [place] [phone] [facility] COMPREHEN SIVE METABOLIC PANEL SODIUM [MOLES/VOLU [...] Apr 27, 2023 08:49 AM Reporting Lab: [place] [phone] Performing Lab: [place] [id number] [place] [address] COMPREHEN SIVE METABOLIC PANEL CHLORIDE [MOLES/VOLU ME] [...] Apr 27, 2023 08:49 AM Reporting Lab: [place] [phone] Performing Lab: [place] [phone] [facility] COMPREHEN SIVE METABOLIC PANEL BILIRUBIN.T OTAL [...] Apr 27, 2023 08:49 AM Reporting Lab: [place] [phone] Performing Lab: [place] [id number] [place] [address] COMPREHEN SIVE METABOLIC PANEL POTASSIUM [MOLES/VOLU ME] [...] Apr 27, 2023 08:49 AM Reporting Lab: [place] [phone] Performing Lab: [place] [phone] [place] [address] COMPREH SIVE METABOLIC PANEL ANION GAP IN [...] 27, 2023 08:49 AM Reporting Lab: [address] [phone] Performing Lab: [address] [phone] [facility] COMPREHEN SIVE METABOLIC PANEL GLOMERULAR FILTRATION [...] 27, 2023 08:49 AM Reporting Lab: [address] [address] Performing Lab: [address] [address] [facility] MICROALBU MIN/CREAT ININE RATIO PANEL MICROALBUMI N [MASS/VOLUM E] IN URINE 2 mg/dL <10 - 10 04/15 Specimen Type: URINE No comment entered. Ordering Provider: YAIMA SOTO Report Released Date/Time: Apr 27, 2023 08:49 AM Reporting Lab: [address] [phone] Performing Lab: [address] [phone] [facility] MICROALBU MIN/CREAT ININE RATIO PANEL CREATININE [MASS/VOLUM E] IN URINE 52.94 mg/dL 04/15 Specimen Type: URINE No comment entered. Ordering Provider: YAIMA SOTO Report Released Date/Time: Apr 27, 2023 08:49 AM Reporting Lab: [address] [address] Performing Lab: [address] [address] [facility] MICROALBU MIN/CREAT ININE RATIO PANEL MICROALBUMI N/CREATININ E [MASS RATIO] IN URINE 37.80 mg/g <19.9 - 19.9 04/15 H Specimen Type: URINE No comment entered. Ordering Provider: YAIMA SOTO Report Released Date/Time: Apr 27, 2023 08:49 AM Reporting Lab: [place] [phone] Performing Lab: [place] [phone] [place] [address] CBC LEUKOCYTES [#/VOLUME] IN BLOOD BY AUTOMATED COUNT 6.2 10*3/u L 3.6 - 11.0 04/15 Specimen Type: BLOOD No comment entered. Ordering Provider: YAIMA SOTO Report Released Date/Time: Apr 27, 2023 08:49 AM Reporting Lab: [place] [phone] Performing Lab: [place] [id number] CBC ERYTHROCYTE S [#/VOLUME] IN BLOOD BY AUTOMATED COUNT 3.72 10*6/u L 4.47 - 5.83 04/15 L Specimen Type: BLOOD No comment entered. Ordering Provider: YAIMA SOTO Report Released Date/Time: Apr 27, 2023 08:49 AM Reporting Lab: [place] [phone] Performing Lab: [place] [id number] CBC HEMOGLOBIN [MASS/VOLUM E] IN BLOOD 12.2 g/dL 13.6 - 17.4 04/15 L Specimen Type: BLOOD No comment entered. Ordering Provider: YAIMA SOTO Report Released Date/Time: Apr 27, 2023 08:49 AM Reporting Lab: [place] [phone] Performing Lab: [place] [id number] CBC HEMATOCRIT [VOLUME FRACTION] OF BLOOD BY AUTOMATED COUNT 35.8 40.0 - 51.0 04/15 L Specimen Type: BLOOD No comment entered. Ordering Provider: YAIMA SOTO Report Released Date/Time: Apr 27, 2023 08:49 AM Reporting Lab: [place] [phone] Performing Lab: [place] [id number] CBC MCV [ENTITIC VOLUME] BY AUTOMATED COUNT 96.3 fL 80.0 - 96.0 04/15 H Specimen Type: BLOOD No comment entered. Ordering Provider: YAIMA SOTO R Report Released Date/Time: Apr 27, 2023 08:49 AM Reporting Lab: [place] [phone] Performing Lab: [place] [id number] CBC MCH [ENTITIC MASS] BY AUTOMATED COUNT 32.8 pg 27.0 - 31.0 04/15 H Specimen Type: BLOOD No comment entered. Ordering Provider: YAIMA SOTO Report Released Date/Time: Apr 27, 2023 08:49 AM Reporting Lab: [place] [phone] Performing Lab: [place] [id number] CBC MCHC [MASS/VOLUM E] BY AUTOMATED COUNT 34.1 g/dL 31.5 - 36.5 04/15 Specimen Type: BLOOD No comment entered. Ordering Provider: YAIMA SOTO Report Released Date/Time: Apr 27, 2023 08:49 AM Reporting Lab: [place] [phone] Performing Lab: [place] [id number] [facility] PLATELETS [#/VOLUME] IN BLOOD BY AUTOMATED COUNT 194 10*3/u L 150 - 400 04/15 Specimen Type: BLOOD No comment entered. Ordering Provider: YAIMA SOTO Report Released Date/Time: Apr 27, 2023 08:49 AM Reporting Lab: [place] [phone] Performing Lab: [place] [phone] [facility] CBC LYMPHOCYTES /100 LEUKOCYTES IN BLOOD BY AUTOMATED COUNT 30.0 21.0 - 51.0 04/15 Specimen Type: BLOOD No comment entered. Ordering Provider: YAIMA SOTO R Report Released Date/Time: Apr 27, 2023 08:49 AM Reporting Lab: [place] [phone] Performing Lab: [place] [phone] [place] [address] CBC MONOCYTES/1 00 LEUKOCYTES IN BLOOD BY AUTOMATED COUNT 10.3 4.0 - 8.0 04/15 H Specimen Type: BLOOD No comment entered. Ordering Provider: YAIMA SOTO R Report Released Date/Time: Apr 27, 2023 08:49 AM Reporting Lab: [place] [phone] Performing Lab: [place] [id number] [facility] NUCLEATED ERYTHROCYTE S/100 LEUKOCYTES [RATIO] IN BLOOD BY MANUAL COUNT 0.0 /100{W BCs} 04/15 Specimen Type: BLOOD No comment entered. Ordering Provider: YAIMA SOTO R Report Released Date/Time: Apr 27, 2023 08:49 AM Reporting Lab: [place] [phone] Performing Lab: [place] [id number] CBC ERYTHROCYTE DISTRIBUTIO N WIDTH [RATIO] BY AUTOMATED COUNT 13.5 11.2 - 15.8 04/15 Specimen Type: BLOOD No comment entered. Ordering Provider: YAIMA SOTO Report Released Date/Time: Apr 27, 2023 08:49 AM Reporting Lab: [place] [phone] Performing Lab: [place] [id number] CBC NEUTROPHILS /100 LEUKOCYTES IN BLOOD BY AUTOMATED COUNT 51.3 54.0 - 78.0 04/15 L Specimen Type: BLOOD No comment entered. Ordering Provider: YAIMA SOTO R Report Released Date/Time: Apr 27, 2023 08:49 AM Reporting Lab: [place] [phone] Performing Lab: [place] [phone] [facility] CBC EOSINOPHILS /100 LEUKOCYTES IN BLOOD BY AUTOMATED COUNT 7.8 0.0 - 3.0 04/15 H Specimen Type: BLOOD No comment entered. Ordering Provider: YAIMA SOTO Report Released Date/Time: Apr 27, 2023 08:49 AM Reporting Lab: [place] [phone] Performing Lab: [place] [id number] [facility] BASOPHILS/1 00 LEUKOCYTES IN BLOOD BY AUTOMATED COUNT 0.6 0.0 - 3.0 04/15 Specimen Type: BLOOD No comment entered. Ordering Provider: YAIMA SOTO Report Released Date/Time: Apr 27, 2023 08:49 AM Reporting Lab: [place] [phone] Performing Lab: [place] [id number] [facility] LYMPHOCYTES [#/VOLUME] IN BLOOD BY AUTOMATED COUNT 1.8 10*3/u L 0.8 - 5.0 04/15 Specimen Type: BLOOD No comment entered. Ordering Provider: YAIMA SOTO Report Released Date/Time: Apr 27, 2023 08:49 AM Reporting Lab: [place] [phone] Performing Lab: [place] [id number] CBC NEUTROPHILS [#/VOLUME] IN BLOOD 3.2 10*3/u L 1.9 - 8.6 04/15 Specimen Type: BLOOD No comment entered. Ordering Provider: YAIMA SOTO Report Released Date/Time: Apr 27, 2023 08:49 AM Reporting Lab: [place] [phone] Performing Lab: [place] [id number] CBC BASOPHILS [#/VOLUME] IN BLOOD BY AUTOMATED COUNT 0.0 10*3/u L 0.0 - 0.3 04/15 Specimen Type: BLOOD No comment entered. Ordering Provider: YAIMA SOTO R Report Released Date/Time: Apr 27, 2023 08:49 AM Reporting Lab: [place] [phone] Performing Lab: [place] [phone] [facility] CBC MONOCYTES [#/VOLUME] IN BLOOD BY AUTOMATED COUNT 0.6 10*3/u L 0.1 - 0.9 04/15 Specimen Type: BLOOD No comment entered. Ordering Provider: YAIMA SOTO Report Released Date/Time: Apr 27, 2023 08:49 AM Reporting Lab: [place] [phone] Performing Lab: [place] [phone] [place] [address] CBC EOSINOPHILS [#/VOLUME] IN BLOOD BY AUTOMATED COUNT 0.5 10*3/u L 0.0 - 0.3 04/15 H Specimen Type: BLOOD No comment entered. Ordering Provider: YAIMA SOTO Report Released Date/Time: Apr 27, 2023 08:49 AM Reporting Lab: [place] [phone] Performing Lab: [place] [id number] [place] [address] CBC PLATELET MEAN VOLUME [ENTITIC VOLUME] IN BLOOD BY AUTOMATED COUNT 8.9 fL 7.4 - 11.4 04/15 Specimen Type: BLOOD No comment entered. Ordering Provider: YAIMA SOTO Report Released Date/Time: Apr 27, 2023 08:49 AM Reporting Lab: [place] [phone] Performing Lab: [place] [id number] LIPID PROFILE CHOLESTEROL [MASS/VOLUM E] IN [...] Apr 28, 2022 08:24 AM Reporting Lab: [address] [address] Performing Lab: [place] [phone] [facility] LIPID PROFILE CHOLESTEROL IN LDL [MASS/VOLUM [...] Apr 28, 2022 08:24 AM Reporting Lab: [place] [phone] Performing Lab: [place] [id number] LIPID PROFILE CHOLESTEROL IN HDL [MASS/VOLUM [...] Apr 28, 2022 08:24 AM Reporting Lab: [place] [phone] Performing Lab: [place] [phone] [facility] LIPID PROFILE TRIGLYCERID E [MASS/VOLUM E] [...] Apr 28, 2022 08:24 AM Reporting Lab: [address] [phone] Performing Lab: [place] [phone] [place] [address] MAGNESIUM MAGNESIUM [MASS/VOLUM E] IN SERUM OR PLASMA 1.9 mg/dL 1.8 - 2.4 04/20 Specimen Type: SERUM Comment: CREATININE eGFR was calculated using the CKD-EPI 2020 equation. TRIGLYCERID E REF RANGE: NORMAL <150 mg/dL BORDERLINE HIGH: 150-199 TRIGLYCERID E mg/dL HIGH: 200-499 mg/dL VERY HIGH: >=500 mg/dL Ordering Provider: YAIMA SOTO R Report Released Date/Time: Apr 28, 2022 08:24 AM Reporting Lab: [place] [phone] Performing Lab: [place] [id number] COMPREHEN SIVE METABOLIC PANEL ALBUMIN [MASS/VOLUM [...] Apr 28, 2022 08:24 AM Reporting Lab: [place] [phone] Performing Lab: [place] [id number] COMPREHEN SIVE METABOLIC PANEL ALKALINE PHOSPHATASE [...] Apr 28, 2022 08:24 AM Reporting Lab: [place] [phone] Performing Lab: [place] [id number] COMPREHEN SIVE METABOLIC PANEL ALANINE AMINOTRANSF [...] Apr 28, 2022 08:24 AM Reporting Lab: [place] [phone] Performing Lab: [place] [phone] [place] [address] COMPREHEN SIVE METABOLIC PANEL ASPARTATE AMINOTRANSF ERASE [...] Apr 28, 2022 08:24 AM Reporting Lab: [place] [phone] Performing Lab: [place] [phone] [place] [address] COMPREHEN SIVE METABOLIC PANEL UREA NITROGEN [MASS/VOLUM [...] Apr 28, 2022 08:24 AM Reporting Lab: [place] [phone] Performing Lab: [place] [phone] [facility] COMPREHEN SIVE METABOLIC PANEL CALCIUM [MASS/VOLUM [...] Apr 28, 2022 08:24 AM Reporting Lab: [place] [phone] Performing Lab: [place] [id number] COMPREHEN SIVE METABOLIC PANEL CREATININE [MASS/VOLUM [...] Apr 28, 2022 08:24 AM Reporting Lab: [place] [phone] Performing Lab: [address] COMPREHEN SIVE METABOLIC PANEL CARBON DIOXIDE, [...] Apr 28, 2022 08:24 AM Reporting Lab: [place] [phone] Performing Lab: [place] [phone] [place] [address] COMPREHEN SIVE METABOLIC PANEL GLUCOSE [MASS/VOLUM E] [...] Apr 28, 2022 08:24 AM Reporting Lab: [place] [phone] Performing Lab: [place] [phone] [place] [address] COMPREHEN SIVE METABOLIC PANEL PROTEIN [MASS/VOLUM E] [...] Apr 28, 2022 08:24 AM Reporting Lab: [place] [phone] Performing Lab: [place] [id number] [place] [address] COMPREHEN SIVE METABOLIC PANEL SODIUM [MOLES/VOLU ME] [...] Apr 28, 2022 08:24 AM Reporting Lab: [place] [phone] Performing Lab: [place] [phone] [facility] COMPREHEN SIVE METABOLIC PANEL CHLORIDE [MOLES/VOLU [...] Apr 28, 2022 08:24 AM Reporting Lab: [place] [phone] Performing Lab: [place] [id number] [place] [address] COMPREHEN SIVE METABOLIC PANEL BILIRUBIN.T OTAL [MASS/VOLUM [...] Apr 28, 2022 08:24 AM Reporting Lab: [place] [phone] Performing Lab: [place] [id number] [place] [address] COMPREHEN SIVE METABOLIC PANEL POTASSIUM [MOLES/VOLU ME] [...] Apr 28, 2022 08:24 AM Reporting Lab: [place] [phone] Performing Lab: [place] [id number] [place] [address] COMPREHEN SIVE METABOLIC PANEL ANION GAP IN SERUM OR PLASMA 13.9 mmol/L 10 - 04/20 Specimen Type: SERUM Comment: CREATININE eGFR was calculated using the CKD-EPI 2020 equation. TRIGLYCERID E REF RANGE: NORMAL <150 mg/dL BORDERLINE HIGH: 150-199 TRIGLYCERID E mg/dL HIGH: 200-499 mg/dL VERY HIGH: >=500 mg/dL Ordering Provider: YAIMA SOTO Report Released Date/Time: Apr 28, 2022 08:24 AM Reporting Lab: [place] [phone] Performing Lab: [place] [phone] [facility]OL[facility] GLOMERULAR FILTRATION RATE/1.73 SQ [...] Apr 28, 2022 08:24 AM Reporting Lab: [address] [id number] Performing Lab: [place] [id number] [facility] Vital Signs Combined list of inpatient and outpatient Vital Signs from Department of Defense and Veterans Affairs, ranging from 12 months to all on record, depending upon the facility. Vital Sign Value Date Comments Source SYSTOLIC BLOOD PRESSURE 124 04/25/2024 09:28:[address] [facility] DIASTOLIC BLOOD PRESSURE 72 04/25/2024 09:28:[address] [facility] PULSE OXIMETRY 97 04/25/2024 09:28:48 [facility] WEIGHT 202.5 04/25/2024 09:28:48 [facility] BMI 33 kg/m2 04/25/2024 09:28:48 [facility] PAIN 4 04/25/2024 09:28:48 [facility] TEMPERATURE 98.5 04/25/2024 09:28:48 [facility] PULSE 51 04/25/2024 09:28:48 [facility] RESPIRATION 16 04/25/2024 09:28:48 [facility] Encounters Combined list of: 1) Encounters from Department of Veterans Affairs facilities going backup to the last 18 months, not all VA inpatient encounters are included; 2) Encounters from the Department of [facility] facilities going backup to 280 months. Location Location Details Encounter Type Encounter Number Reason For Visit Attending Provider ADM Date DC Date Status Disposition Source [facility] Outpatient Encounter [id number] [place] [facility] [place] En[place] [id number] 04/25 [facility] OFFICE O/P EST MOD 30 MIN [id number] Diagnos is: ICD-10- CM E11.9 Type 2 diabete s mellitu s without complic ations CHARLES,A BRITTNEY R 04/25 [facility] Social History Combined list of available smoking, tobacco, and other social history from Department of Defense and Veterans Affairs facilities. Social History Type Response Date Comment Sourc e Tobacco smoking status MAIS [facility] NEVER USED 04/25/2024 [facility] History of tobacco use [facility] NEVER USED 04/27/2023 [facility] History of tobacco use [facility] FORMER USER 04/28/2022 [facility] History of tobacco use [place] 1 5 YRS OR MORE 05/06/2021 [...] use TOBACCO [place] NON USER 2 [facility] Plan of Care List of future care activities from Department of Veterans Affairs facilities. Additional future care activities may be listed in the Assessment and Plan section. Date/Time Care Activity Care Activity Detail Facili ty 04/17/2025 AMBULATORY - NONE AMBULATORY - NONE [facility]
--- OUTSIDE RECORDS SUMMARY | 2025-01-30 07:53 | XMS_ITS | Clinical Summary ---
Author Organization [facility] Healthcare Address [address] [place] [address] Care Team Providers Care Senior Statistical Programmer Name Role Phone Jamar Jones DO Primary Care Provider [phone] Allergies Active Allergy Reactions Criticality Noted Date Comments Penicillin G 06/25/2001 Other Reaction(s): HIVES, Unknown Simvastatin 07/05/2002 Other Reaction(s): Unknown Medications aspirin 81 MG EC tablet Take 81 mg by mouth in the morning. Active atorvastatin (Lipitor) 40 MG tablet Take 40 mg by mouth in the morning. Active lisinopril-hydr oCHLOROthiazide 20-12.5 MG tablet Take 1 tablet by mouth in the morning. Active metoprolol tartrate (Lopressor) 25 MG tablet Take 25 mg by mouth every 12 (twelve) hours. Active glimepiride (Amaryl) 1 MG tablet Take 0.5 mg by mouth in the morning. Take before meals. Active metFORMIN, OSM, (Fortamet) 500 MG 24 hr tablet Take 500 mg by mouth in the evening. Take with meals. Do not crush, chew, or split. Active ipratropium (Atrovent) 0.06 % nasal sprayIndication s:Vasomotor rhinitis Administer 2 sprays into each nostril in the morning and 2 sprays in the evening and 2 sprays before bedtime. 45 mL 3 3 Active fluorouracil (Efudex) 5 % creamIndication s:Actinic keratosis Apply to directed areas on the face, ears and back of hands twice a day x 14 days. Dispense 30 day supply but only use for 14 days. 40 g 4 Active fluocinonide (Lidex) 0.05 % creamIndication s:Psoriasis vulgaris Apply topically 2 (two) times a day 60 g 11 4 02/26/20 25 Active Active Problems Problem Noted Date Diagnosed Date Vasomotor rhinitis 06/05/2023 Anisocoria 06/01/2023 Coronary arteriosclerosis 06/01/2023 Overview (06/01/2023): Jun 01, 2016 Entered By: HARVINDER TORIBIO Comment: cabg X 3 (07/2014) Diabetes mellitus 06/01/2023 Impaired hearing 06/01/2023 Obesity 06/01/2023 Essential hypertension 06/01/2023 Sensorineural hearing loss, bilateral 06/01/2023 Sleep apnea 06/01/2023 Type 2 diabetes mellitus without complications 1 08/01/2022 Nonrheumatic aortic (valve) stenosis 06/01/2023 Malignant neoplasm of prostate 08/06/2014 Overview (06/01/2023): Jun 01, 2016 Entered By: HARVINDER TORIBIO Comment: PROSTATECTOMY 10/2014 Resolved Problems Problem Noted Date Diagnosed Date Resolved Date Primary hypertension 06/01/2023 023 Immunizations Immunization Administration Dates Next Due Pneumococcal Polysaccharide PPSV23 06/12,06/01/2017,04/29/2015,06/07/20 10 Zoster, Recombinant 08/20/2018,06/11/2018 Family History Medical History Relation Name Comments Heart failure Father Cancer Mother Relation Name Status Comments Father Mother Social History Tobacco Use Types Packs/Day Years Used Date Smoking Tobacco: Never Smokeless Tobacco: Never Tobacco Cessation:Counseling Given: Not Answered Alcohol Use Standard Drinks/Week Comments Yes 8 (1 standard drink = 0.6 oz pure alcohol) caffeine intake: more than 4 cups per day AUDIT-C Answer Date Recorded Q1: How often do you have a drink containing alc ohol? 2-3 times a week 06/04/2023 Q2: How many drinks containi ng alcohol do you have on a typical day when you are drinking? 1 or 2 06/04/2023 Q3: How often do you have si x or more drinks on one occasion? Never 06/04/2023 Sex and Gender Information Value Date Recorded Sex Assigned at Not on file Legal Sex Male 8:21 PM EDT Gender Identity Not on file Sexual Orientation Not on file Last Filed Vital Signs Vital Sign Reading Time Taken Comments Blood Pressure 146/78 09/28/2023 8:23 AM EDT Pulse - - Temperature - - Respiratory Rate - - Oxygen Saturation - - Inhaled Oxygen Concentration - - Weight 94.3 kg (208 lb) 06/05/2023 11:24 AM EST Height 168.9 cm (5' 6.5 ) 06/05/2023 11:24 AM ES T Body Mass Index 33.07 06/05/2023 11:24 AM EST Plan of Treatment Upcoming Encounters Date Type Department Care Team (Late st Contact Info) Description 02/25/2025 10:05 AM EDT Office Visit [facility] [address] [place] [id number] Deisy Boo APRN-SALESPERSON [facility] [address] [place] [address] Health Maintenance Due Date Last Done Comments Influenza Vaccine (#1) 2025 4, 05/01/2023, 04/28/2022, Additional history exists Pneumococcal Vaccine: 65+ Years Completed 06/12/2017, 06/01/2017, 05/11/2015, Additional history exists Insurance [employer] Care Teams Senior Statistical Programmer Relationship Specialty Start Date End Date Jamar Jones DO PCP - General Internal Medicine 05/31/23
--- OUTSIDE RECORDS SUMMARY | 2025-01-30 07:53 | XMS_ITS ---
Author Organization [facility] Address [address] [place], [place] [id number] Care Team Providers Care 21 Dealer Name Role Phone Jamar Jones Primary Care Provider Galina Wall IT SECURITY SPECIALIST.ACADEMY EDUCATION DIRECTOR Unavailable [phone] Clementine Aguilar RN Unavailable [phone] Saul Galdamez MD Unavailable [phone] Active Problems Problem Noted Date Diagnosed Date Malignant neoplasm of prostate 08/06/2014 Current Treatment and Therapy Plans AMB BONE MODIFYING AGENT: $$$$ - Q4 WEEKS - IF CrCl IS LESS THAN 30 ML/MIN* Plan Start Date:11/18/2021 Plan Provider:Marco A Esqueda MD Linked Problems Malignant neoplasm of prosta te (HCC) Treatment Medications denosumab (XGEVA) Past Treatment and Therapy Plans No past plan information found.
--- OUTSIDE RECORDS SUMMARY | 2025-01-30 07:53 | XMS_ITS | Encounter Summary ---
Author Organization [facility] Address [address] [place], [place] [id number] Care Team Providers Care Hand Tier Name Role Phone Jamar Jones DO Primary Care Provider [phone] Marco A Esqueda MD Unavailable Galina Wall APRN.PRIZE COORDINATOR Unavailable [phone] Clementine Aguilar RN Unavailable [phone] Saul Galdamez MD Unavailable [phone] Source Comments In the event this information is protected by the Federal Confidentiality of Alcohol and Drug AbusePatient Records regulations: The Federal rules restrict any use of the information to criminally investigate or prosecute any alcohol or drug abuse patient.[facility] Encounter Details Date Type Department Care Team (Latest Contact Info) Description 04/27/2023 H&P External-NonCCF Provider, External, PAAlexC Do not enter address information under generic External Provider. Social History Tobacco Use Types Packs/Day Years Used Date Smoking Tobacco: Never Passive Smoke Exposure: Never Smokeless Tobacco: Never Alcohol Use Standard Drinks/Week Comments Yes 0 (1 standard drink = 0.6 oz pur e alcohol) 1 day/wk PHQ-2 Answer Date Recorded PHQ-2 score 0 02/02/2023 Area Deprivation Index Answer Date Lion rded National Score (1-100), lower number is lower ri sk 80 02/02/2023 State Score (1-10), lower number is lower risk 7 02/02/2023 Data from: https://www.neighborhoodatlas.medicine.[facility]/. Last address used for calculation [address] 02/02/2023 Sex and Gender Information Value Date Recorded Sex Assigned at Male 02/11/2022 11:48 AM EDT Legal Sex Male 8:03 AM EST Gender Identity Male 02/11/2022 11:48 AM EDT Sexual Orientation Straight 02/11/2022 11 :48 AM EDT documented as of this encounter Functional Status * Are you deaf or do you have serious difficulty hearing? Answer Date of Assessment Author No 08/19/2014 10:35 AM Jennifer Mills LPN * Are you blind or do you have serious difficulty seeing, even when wearing glasses? Answer Date of Assessment Author Yes 08/19/2014 10:35 AM Jennifer Mills LPN * Do you have serious difficulty walking or climbing stairs? Answer Date of Assessment Author No 08/19/2014 10:35 AM Jennifer Mills LPN * Do you have difficulty dressing or bathing? Answer Date of Assessment Author No 08/19/2014 10:35 AM Jennifer Mills LPN * Because of a physical, mental, or emotional condition, do you have difficulty doing errands alone such as visiting a doctor's office or shopping? Answer Date of Assessment Author No 08/19/2014 10:35 AM Jennifer Mills LPN documented as of this encounter Mental Status * Because of a physical, mental, or emotional condition, do you have serious difficulty concentrating, remembering, or making decisions? Answer Entry Date Author No 08/19/2014 10:35 AM Jennifer Mills LPN documented in this encounter Plan of Treatment Upcoming Encounters Date Type Department Care Team (Latest Contact Info) Description 2025 10:00 AM EDT Office Visit [address] [place] [address] 3 month lab 02/20/2025 10:20 AM EDT Visit (SP) Office Hematology/Oncology [address] [place] [address] Saul Galdamez MD [address] [place] [address] [place] [address] 3 moonth [place] [facility] lab a week prior documented as of this encounter Visit Diagnoses Not on filedocumented in this encounter Care Teams Hand Tier Relationship Specialty Start Date End Date Jamar Jones DO PCP - General Internal Medicine 08/04/14 Marco A Esqueda MD [address] [place] [address] [place] [address] Physician Hematology/Oncology 11/02/21 01/20/25 Galina Wall APRN.PRIZE COORDINATOR [address] [place] [address] [place] [address] Nurse Practitioner Hematology/Oncology 11/02/21 Clementine Aguilar, ANITHA [address] [place] [address] [place] [address] Specialty Protective Signal Operations Supervisor Hematology/Oncology 11/02/21 Saul Galdamez MD [address] [place] [address] [place] [address] Physician Hematology/Oncology 01/21/25 documented as of this encounter
--- OUTSIDE RECORDS SUMMARY | 2025-01-30 07:54 | XMS_ITS | Clinical Summary ---
Author Organization [facility] Address [address] [place] [address] Care Team Providers Care College Intern Name Role Phone Jamar Jones DO Primary Care Provider [phone] Allergies Active Allergy Reactions Criticality Noted Date Comments Penicillins Hives,Other,Unknown Medium 06/25/2001 Other reaction(s): Unknown Other Reaction(s): HIVES, Unknown Medications lisinopriL-hydr ochlorothiazide 20-12.5 mg tablet Take 1 tablet by mouth in the morning. 9 Active atorvastatin (Lipitor) 40 mg tablet Take 1 tablet by mouth in the evening. Active metoprolol tartrate (Lopressor) 25 mg tablet Take 1 tablet by mouth in the morning and at bedtime. Active glimepiride (Amaryl) 1 mg tablet TAKE 1/2 TABLET BY MOUTH DAILY 30 MINUTES PRIOR TO BREAKFAST Active metFORMIN (Glucophage) 500 mg tablet Take 500 mg by mouth with breakfast and with evening meal. Active enzalutamide 80 mg tablet Take 160 mg by mouth in the morning. 2 Active aspirin 81 mg chewable tablet Chew 1 tablet every day by oral route. Active Active Problems Problem Noted Date Diagnosed Date Cervical spondylosis 03/27/2024 Mass of skin of left shoulder 03/27/2024 Neck pain 03/27/2024 Primary osteoarthritis, right shoulder Shoulder pain, right 03/27/2024 Type 2 diabetes mellitus with hyperglycemia 03/17 Kidney stones 03/12/2024 Cardiovascular stress test abnormal 06/22/2023 06/22/2023 Electrocardiogram abnormal 06/22/202306/22 Preoperative cardiovascular examination 06/22/20 23 06/22/2023 Assessment & Plan (03/29/2024 3:06 PM EDT): RCRI=1 points Class II Risk 6.0 % 30-day risk of , [place], or cardiac arrest From a cardiac perspective pt may proceed with carpal tunnel surgery, he is a moderate risk for a low risk surgery. She may hold aspirin 5-7 days prior and resume post op. Please monitor hemodynamics carefully and prevent any major fluid shifts. History of hypertension 06/22/2023 06/22/20 23 History of kidney stones 06/22/2023 023 History of prostate cancer 06/22/202306/22 Hyperlipidemia 06/22/2023 06/22/2023 Assessment & Plan (03/29/2024 3:07 PM EDT): Lipid abnormalities are stable continue Lipitor 40 mg daily lipid profile is well-controlled and liver function is normal Microscopic hematuria 06/22/2023 06/22/2023 Nocturia 06/22/2023 06/22/2023 Rising PSA following treatme nt for malignant neoplasm of prostate 06/22/2023 06/22/2023 Vasomotor rhinitis 06/05/2023 06/22/2023 Anisocoria 06/01/2023 06/22/2023 Coronary arteriosclerosis 06/01/20232022 Overview (06/22/2023): Jun 01, 2016 Entered By: HARVINDER TORIBIO Comment: cabg X 3 (07/2014) Jun 01, 2016 Entered By: HARVINDER TORIBIO Comment: cabg X 3 (07/2014) Assessment & Plan (03/29/2024 3:08 PM EDT): Coronary artery disease is stable, no concerning symptoms currently overall is doing well he is planning bilateral carpal tunnel surgery soon with Dr. Charlton. Continue GDMT-continue aspirin, Lipitor, metoprolol, and lisinopril continue risk factor modifications- heart healthy diet, regular exercise as tolerated and continue all medications. Essential hypertension 06/01/2023 Assessment & Plan (03/29/2024 3:07 PM EDT): Hypertension is well-controlled at 127/51 Continue lisinopril/hydrochlorothiazide and metoprolol. Renal function normal Impaired hearing 06/01/2023 06/22/2023 Nonrheumatic aortic (valve) stenosis 06/01/2023 06/22/2023 Assessment & Plan (03/29/2024 3:06 PM EDT): Reviewed echocardiogram from July 08 moderate aortic stenosis noted and reviewed echo with patient and his No concerning symptoms at this time patient would like symptoms including palpitations, lightheaded dizziness, syncope, chest pain, worsening shortness of breath and he voiced understanding Monitor with echocardiogram Obesity 06/01/2023 06/22/2023 Sensorineural hearing loss, bilateral 06/01/2023 06/22/2023 Sleep apnea 06/01/2023 06/22/2023 Type 2 diabetes mellitus without complications 1 08/01/2022 06/22/2023 Diabetes mellitus 10/13/2021 06/22/2023 Carcinoma of prostate 07/02/2014 06/22/2023 Overview (06/22/2023): S/p Radical 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 2018 Jun 01, 2016 Entered By: HARVINDER TORIBIO Comment: PROSTATECTOMY 10/2014Jun 01, 2016 Entered By: HARVINDER TORIBIO Comment: PROSTATECTOMY 10/2014 Family History Medical History Relation Name Comments Coronary artery disease Father Relation Name Status Comments Father Social History Tobacco Use Types Packs/Day Years Used Date Smoking Tobacco: Never Smokeless Tobacco: Never Tobacco Cessation:Counseling Given: Not Answered Alcohol Use Standard Drinks/Week Comments Not Currently 0 (1 standard drink = 0.6 oz pur e alcohol) [place] Safety & Environment Answer Date Rec orded Fear of Current or Ex-Partner Not on file Emotionally Abused Not on file 09/07/2023 Physically Abused Not on file 09/07/2023 Sexually Abused Not on file 09/07/2023 Physically or Sexually Abused Not on file Sex and Gender Information Value Date Recorded Sex Assigned at Not on file Legal Sex Male 11:25 PM EDT Gender Identity Not on file Sexual Orientation Not on file Last Filed Vital Signs Vital Sign Reading Time Taken Comments Blood Pressure 127/51 03/29/2024 1:50 PM EDT Pulse 65 03/29/2024 1:50 PM EDT Temperature - - Respiratory Rate - - Oxygen Saturation 97% 03/29/2024 1:50 PM EDT Inhaled Oxygen Concentration - - Weight 93 kg (205 lb) 03/29/2024 1:50 PM EDT Height 165.1 cm (5' 5 ) 03/29/2024 1:50 PM EDT Body Mass Index 34.11 03/29/2024 1:50 PM EDT Plan of Treatment Health Maintenance Due Date Last Done Comments Diabetes: Hemoglobin A1C 1945 Medicare Annual Wellness (AWV) 1945 Diabetes: Retinopathy Screening 02/14/1956 Depression Screening 1958 Diabetes: Urine Protein Screening 1965 Fall Risk Screening 2011 Adult Tetanus 06/19/2023 06/19/2013, 10/0 03/2013, 01/10/2003 COVID-19 Vaccine ( season) 2024 04/21/2022, 01/21/2022, 05/17/2021, Additional history exists Influenza Vaccine (#1) 2025 , 05/01/2023, 04/28/2022, Additional history exists Pneumococcal Vaccine: 50+ Years Completed 06/12/2017, 06/01/2017, 06/01/2017, Additional history exists Zoster Vaccines Completed 08/20/2018, 05/18, 06/27/2012 HIB Vaccines Aged Out No longer eligi ble based on patient's age to complete this topic HPV Vaccines Aged Out No longer eligi ble based on patient's age to complete this topic IPV Vaccines Aged Out No longer eligi ble based on patient's age to complete this topic Meningococcal B Vaccine Aged Out No l onger eligible based on patient's age to complete this topic Meningococcal Vaccine Aged Out No mag jose cruz eligible based on patient's age to complete this topic Rotavirus Vaccines Aged Out No longer eligible based on patient's age to complete this topic Insurance [employer] Care Teams College Intern Relationship Specialty Start Date End Date Jamar Jones DO [address] [place] [address] PCP - General 04/27/22
--- OUTSIDE RECORDS SUMMARY | 2025-01-30 07:54 | XMS_ITS | Clinical Summary ---
Author Organization [facility] Address [address] [place], [place] [id number] Care Team Providers Care Advertising Writer Name Role Phone Jamar Jones DO Primary Care Provider [phone] Galina Wall LATIN TEACHER.HEARING AID FITTER Unavailable [phone] Clementine Aguilar RN Unavailable [phone] Saul Galdamez MD Unavailable [phone] Allergies Active Allergy Reactions Criticality Noted Date Comments Penicillins Unknown 08/06/2014 Simvastatin Unknown 07/05/2002 Medications lisinopril-hydr ochlorothiazide (PRINZIDE,ZESTO RETIC) 20-12.5 mg per tablet Take 1 tablet by mouth once daily. Active aspirin, enteric coated (ASPIRIN, ENTERIC COATED) 81 mg EC tablet Take 81 mg by mouth once daily. Active atorvastatin (LIPITOR) 40 mg tablet Take 40 mg by mouth once daily. Active GLIMEPIRIDE ORAL Take 0.5 mg by mouth once daily. 10/15/2021 Active metFORMIN (GLUCOPHAGE) 1,000 mg tablet Take 1,000 mg by mouth once daily. 08/17/2021 Active Multivitamins-M inerals-Lutein (MULTIVITAMIN 50 PLUS) tab Take 1 tablet by mouth once daily. Active metoprolol succinate ER (TOPROL XL) 25 mg 24 hr tablet Take by mouth. 02/04/2019 Active Calcium Citrate-Vitamin D3 200 mg-6.25 mcg (250 unit) tab Take 2 tablets by mouth once daily. 04/28/2022 Active enzalutamide (XTANDI) 40 mg tablet Take 4 tablets (160 mg) by mouth once daily. 120 tablet 11 05/08/2024 Active Active Problems Problem Noted Date Diagnosed Date Malignant neoplasm of prostate 08/06/2014 Encounters Date Type Department Care Team Description 11/07/2024 10:30 AM EDT Infusion Center Hematology/Oncology [address] [place] [address] Malignant neoplasm of prostate (HCC) (Primary Dx) 11/07/2024 10:00 AM EDT Visit (SP) Office Hematology/Oncology [address] [place] [address] [place] [address] Marco A Esqueda MD Malignant neoplasm of prostate (HCC) (Primary Dx) 11/07/2024 Travel from Last 3 Months Immunizations Immunization Administration Dates Next Due AS03 adjuvant 03/27/2018 COVID-19 original vaccine, f ull dose, monovalent (MODERNA) 01/21/2022,05/17/2021,09/22/2020,08/24 COVID-19 vaccine (BRIANA) 08/26/2020 COVID-19 vaccine, age 12+ yr (MODERNA) COVID-19 vaccine, age 12+ yr , bivalent (MODERNA) 04/21/2022 diphtheria tetanus pertussis (DTaP) vaccine, unspecified formulation 06/19/2013,01/14/2003 influenza (HD-IIV3) vaccine, age 65+ yr, high dose, trivalent, PF (FLUZONE HIGH-DOSE) 03/26/2024,05/01/2023,04/28/2022,04/03 influenza (HD-IIV4) vaccine, age 65+ yr, high dose, quadrivalent, PF (FLUZONE HIGH-DOSE) 04/28/2022 influenza (IIV3) vaccine, tr ivalent, PF (AFLURIA, FLUARIX, FLULAVAL, FLUVIRIN, FLUZONE) 05/11/2015,06/09/2014 influenza (IIV4) vaccine, ag e 6 mo - 64 yr, quadrivalent, PF (AFLURIA, FLUARIX, FLULAVAL, FLUZONE) 05/31/2017 influenza (LAIV) vaccine, na mohit, unspecified formulation 04/28/2022,04/16/2021,04/16/2019,04/16,03/27/2018,05/31/2017,04/03/2017 ,03/23/2017,03/31/2016,05/11/2015,05/18,05/23/2013,06/11/2012, 1,05/28/2010,05/25/2009,06/09/2008, influenza (aIIV3) vaccine, a ge 65+ yr, trivalent, PF (FLUAD) 03/27/2018 influenza vaccine, split virus ,04/23/2020,04/22/2019,04/01 influenza vaccine, unspecifi ed formulation 05/01/2023,04/28/2022,04/22/2021,04/16,04/23/2020,04/22/2019,04/16/2018 ,03/27/2018,05/31/2017,04/03/2017,01/2017,04/01/2016,05/11/2015, 4,05/23/2013,06/11/2012,06/02/2011,06/2010,05/25/2009,06/09/2008,07/03/20 02 influenza vaccine, whole virus 07/23/2003 pneumococcal conjugate (PCV1 3) vaccine, 13 valent (PREVNAR 13) 05/11/2015 pneumococcal polysaccharide (PPV23) vaccine, 23 valent (PNEUMOVAX 23) 06/12/2017,06/01/2017,04/29/2015,06/23,06/07/2010,01/14/2010 pneumococcal vaccine, unspec ified formulation 06/07/2010 respiratory syncytial virus (RSV) vaccine, bivalent (ABRYSVO) 04/26/2024 tetanus diphtheria (Td) vacc ine, adult, non-adsorbed 06/19/2013 tetanus diphtheria (Td) vacc ine, adult, unspecified formulation 01/10/2003 tetanus diphtheria (Td) vacc ine, age 7+ yr, 5 Lf tetanus, PF (TENIVAC) 04/24/2013 tetanus diphtheria pertussis (Tdap) vaccine, age 7+ yr (ADACEL, BOOSTRIX) 04/25/2024 zoster (RZV) vaccine, recomb inant (SHINGRIX) 08/20/2018,06/11/2018 zoster (ZVL) vaccine, live (ZOSTAVAX) 06/27/2012 Family History Medical History Relation Comments Cancer Mother Cancer Relation Status Comments Mother Social History Tobacco Use Types Packs/Day Years Used Date Smoking Tobacco: Never Passive Smoke Exposure: Never Smokeless Tobacco: Never Tobacco Cessation:Counseling Given: Not Answered Alcohol Use Standard Drinks/Week Comments Yes 0 (1 standard drink = 0.6 oz pur e alcohol) 1 day/wk PHQ-2 Answer Date Recorded PHQ-2 score 0 11/06/2024 Area Deprivation Index Answer Date Lion rded National Score (1-100), lower number is lower ri sk 80 02/02/2023 State Score (1-10), lower number is lower risk 7 02/02/2023 Data from: https://www.neighborhoodatlas.[facility]/. Last address used for calculation [address] 02/02/2023 Sex and Gender Information Value Date Recorded Sex Assigned at Male 02/11/2022 11:48 AM EDT Legal Sex Male 8:03 AM EST Gender Identity Male 02/11/2022 11:48 AM EDT Sexual Orientation Straight 02/11/2022 11 :48 AM EDT Last Filed Vital Signs Vital Sign Reading Time Taken Comments Blood Pressure 131/56 11/07/2024 9:42 AM EDT Pulse 81 11/07/2024 9:42 AM EDT Temperature 36.3 C (97.4 F) 11/07/2024 9:42 AM EDT Respiratory Rate 16 11/07/2024 9:42 AM EDT Oxygen Saturation 99% 11/07/2024 9:42 AM EDT Inhaled Oxygen Concentration - - Weight 92.5 kg (203 lb 14.8 oz) 11/07/2024 9:42 AM EDT Height 167.6 cm (5' 5.98 ) 11/07/2024 9:42 AM ED T Body Mass Index 32.93 11/07/2024 9:42 AM EDT Plan of Treatment Upcoming Encounters Date Type Department Care Team (Latest Contact Info) Description 2025 10:00 AM EDT Office Visit [facility] [address] [place] [address] 3 month lab 02/20/2025 10:20 AM EDT Visit (SP) Office Hematology/Oncology [address] [place] [address] Saul Galdamez MD [address] [place] [address] 3 moonth [place] [facility] lab a week prior Health Maintenance Due Date Last Done Comments Anxiety Screening 02/14/1963 Depression Screening 02/14/1964 Hepatitis C Screening 02/14/1964 Medicare Annual Wellness Visit 01/14/2011 Advance Directive Discussion 07/17/2024 Covid-19 Vaccine (8 - 2023-2 5 season) 2024 04/26/2024, 04/21/2022, 01/21/2022, Additional history exists Influenza Vaccine (#1) 2025 , 05/01/2023, 05/01/2023, Additional history exists Diabetes Screening 11/01/2027 10/31/2024, 0 08/01/2024, 05/03/2024, Additional history exists DTaP,Tdap,Td Vaccine (6 - Td or Tdap) 04/25/2034 04/25/2024, 06/19/2013, 06/19/2013, Additional history exists Pneumococcal Vaccine: 50+ Completed 2016, 06/01/2017, 05/11/2015, Additional history exists Shingrix Vaccine Completed 08/20/2018, , 06/27/2012 RSV Vaccine Completed 04/26/2024 Procedures Procedure Name Priority Date/Time Associated Diagnosis Comments PSA/PROSTSPECAG DIAG Routine 10/31/2024 8:41 AM EDT Malignant neoplasm of prostate (HCC) Essential hypertension 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, unspecified vessel or lesion type Type 2 diabetes mellitus without complication, without long-term current use of insulin (HCC) COMPREHENSIVE METABOLIC PANEL Routine 10/31/2024 8:41 AM EDT Malignant neoplasm of prostate (HCC) Essential hypertension 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, unspecified vessel or lesion type Type 2 diabetes mellitus without complication, without long-term current use of insulin (HCC) CBC + DIFF Routine 10/31/2024 8:41 AM EDT Malignant neoplasm of prostate (HCC) Essential hypertension 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, unspecified vessel or lesion type Type 2 diabetes mellitus without complication, without long-term current use of insulin (HCC) from Last 3 Months Results * PROSTATE-SPECIFIC ANTIGEN DIAGNOSTIC (10/31/2024 8:41 AM EDT) PSA 0.22 <2.60 ng/mL 10/31/2024 7:17 PM EDT [facility] Comment:Total PSA test metho dology used is the Electrochemiluminescence Immunoassay by [employer]. Total PSA values by differing methodologies cannot be interchanged. Blood BLOOD SPECIMEN / Unknown Venipuncture / Unknown 10/31/2024 8:41 AM EDT 10/31/2024 8:41 AM EDT us Galina Wall LATIN TEACHER.HEARING AID FITTER LABORATORY Final Re sult [facility] [address] [place] [address], * (ABNORMAL) COMPREHENSIVE METABOLIC PANEL (10/31/2024 8:41 AM EDT) Protein, Total 6.5 6.3 - 8.0 g/dL 10/31/2024 9:10 AM EDT [facility] Albumin 4.1 3.9 - 4.9 g/dL 10/31/2024 9:10 AM EDT [facility] Calcium, Total 10.1 8.5 - 10.2 mg/dL 10/31/2024 9:10 AM EDT [facility] Bilirubin, Total 0.5 0.2 - 1.3 mg/dL 10/31/2024 9:10 AM [facility] Alkaline Phosphatase 84 38 - 113 U/L 10/31/2024 9:10 AM [facility] AST 18 14 - 40 U/L 10/31/2024 9:10 AM [facility] ALT 18 10 - 54 U/L 10/31/2024 9:10 AM [facility] Glucose 123(H) 74 - 99 mg/dL 10/31/2024 9:10 AM [facility] Comment: The [place] Diabetes Association (ADA) provides guidance for cutoff [...] Standards of Medical Care in Diabetes 2016, [place] Diabetes Association. Diabetes Care. 2016.39(Suppl 1). BUN 16 9 - 24 mg/dL 10/31/2024 9:10 AM [facility] Creatinine 0.88 0.73 - 1.22 mg/dL 10/31/2024 9:10 AM [facility] Sodium 137 136 - 144 mmol/L 10/31/2024 9:10 AM [facility] Potassium 4.6 3.7 - 5.1 mmol/L 10/31/2024 9:10 AM [facility] Chloride 101 98 - 107 mmol/L 10/31/2024 9:10 AM [facility] CO2 24 22 - 30 mmol/L 10/31/2024 9:10 AM [facility] Anion Gap 12 8 - 15 mmol/L 10/31/2024 9:10 AM [facility] Estimated Glomerular Filtration Rate 88 >=60 mL/min/1. 73m 10/31/2024 9:10 AM EDT [facility] Comment:Estimated Glomerular Filtration Rate (eGFR) is calculated using the 2020 CKD-EPI creatinine equation. This equation utilizes serum creatinine, sex, and age as parameters. The creatinine assay has traceable calibration to isotope dilution- mass spectrometry. Refer to KDIGO guidelines for clinical interpretation. In patients with unstable renal function, e.g. those with acute kidney injury, the eGFR may not accurately reflect actual GFR. Blood BLOOD SPECIMEN / Unknown Venipuncture / Unknown 10/31/2024 8:41 AM EDT 10/31/2024 8:41 AM EDT Galina Wall LATIN TEACHER.HEARING AID FITTER LABORATORY Final Re sult [facility] [address] [place] [address] * (ABNORMAL) COMPLETE BLOOD COUNT AND DIFFERENTIAL (10/31/2024 8:41 AM EDT) WBC 6.99 3.70 - 11.00 k/uL 10/31/2024 8:50 AM EDT [facility] RBC 3.85(L) 4.20 - 6.00 m/uL 10/31/2024 8:50 AM EDT [facility] Hemoglobin 12.4(L) 13.0 - 17.0 g/dL 10/31/2024 8:50 AM EDT [facility] Hematocrit 36.0(L) 39.0 - 51.0 % 10/31/2024 8:50 AM EDT [facility] MCV 93.5 80.0 - 100.0 fL 10/31/2024 8:50 AM EDT [facility] MCH 32.2 26.0 - 34.0 pg 10/31/2024 8:50 AM EDT [facility] MCHC 34.4 30.5 - 36.0 g/dL 10/31/2024 8:50 AM EDT [facility] RDW-CV 12.9 11.5 - 15.0 % 10/31/2024 8:50 AM EDT [facility] Platelet Count 204 150 - 400 k/uL 10/31/2024 8:50 AM EDT [facility] MPV 9.8 9.0 - 12.7 fL 10/31/2024 8:50 AM EDT [facility] Neutrophils % 55.7 % 10/31/2024 8:50 AM EDT [facility] Abs Neut 3.90 1.45 - 7.50 k/uL 10/31/2024 8:50 AM EDT [facility] Lymphocytes % 25.8 % 10/31/2024 8:50 AM EDT [facility] Abs Lymph 1.80 1.00 - 4.00 k/uL 10/31/2024 8:50 AM EDT [facility] Monocytes % 9.9 % 10/31/2024 8:50 AM EDT [facility] Abs [place] 0.69 <0.87 k/uL 10/31/2024 8:50 AM EDT [facility] Eosinophils % 7.3 % 10/31/2024 8:50 AM EDT [facility] Abs Eosin 0.51(H) <0.46 k/uL 10/31/2024 8:50 AM EDT [facility] Basophils % 0.7 % 10/31/2024 8:50 AM EDT [facility] Abs Baso 0.05 <0.11 k/uL 10/31/2024 8:50 AM EDT [facility] Immature Granulocytes % 0.6 % 10/31/2024 8:50 AM EDT [facility] Abs Immature Gran 0.04 <0.10 k/uL 10/31/2024 8:50 AM EDT [facility] NRBC 0.0 /100 WBC 10/31/2024 8:50 AM EDT [facility] Absolute nRBC <0.01 <0.01 k/uL 10/31/2024 8:50 AM EDT [facility] Diff Type Auto 10/31/2024 8:50 AM EDT [facility] Blood BLOOD SPECIMEN / Unknown Venipuncture / Unknown 10/31/2024 8:41 AM EDT 10/31/2024 8:41 AM EDT Galina Wall LATIN TEACHER.HEARING AID FITTER LABORATORY Final Re sult [facility] [address] [place] [address] from Last 3 Months Insurance MEDICARE [employer] SU[employer]MENT Care Teams Advertising Writer Relationship Specialty Start Date End Date Jamar Jones DO PCP - General Internal Medicine 08/04/14 Galina Wall APRN.HEARING AID FITTER [address] [place] [address] [place] [address] Nurse Practitioner Hematology/Oncology 11/02/21 Clementine Aguilar, ANITHA [address] [place] [address] [place] [address] Specialty Sort Line Hematology/Oncology 11/02/21 Saul Galdamez MD [address] [place] [address] [place] [address] Physician Hematology/Oncology 01/21/25
--- OUTSIDE RECORDS SUMMARY | 2025-01-30 07:54 | XMS_ITS | Encounter Summary ---
Author Organization [facility] Address [address] [place] [id number] Care Team Providers Care Marine Engineering Consultant Name Role Phone Jamar Jones DO Primary Care Provider [phone] Marco A Esqueda MD Unavailable Galina Wall APRN.CHARGE NURSE Unavailable [phone] Clementine Aguilar RN Unavailable [phone] Saul Galdamez MD Unavailable [phone] Source Comments In the event this information is protected by the Federal Confidentiality of Alcohol and Drug AbusePatient Records regulations: The Federal rules restrict any use of the information to criminally investigate or prosecute any alcohol or drug abuse patient.[facility] Reason for Visit * Reason Comments Refill Request Encounter Details Date Type Department Care Team (Late st Contact Info) Description 04/01/2024 Refill Hematology/Oncology [address] [place] [address] Marco A Esqueda MD [address] [facility] [place] [address] Refill Request Social History Tobacco Use Types Packs/Day Years Used Date Smoking Tobacco: Never Passive Smoke Exposure: Never Smokeless Tobacco: Never Alcohol Use Standard Drinks/Week Comments Yes 0 (1 standard drink = 0.6 oz pur e alcohol) 1 day/wk PHQ-2 Answer Date Recorded PHQ-2 score 0 01/31/2024 Area Deprivation Index Answer Date Lion rded National Score (1-100), lower number is lower ri sk 80 02/02/2023 State Score (1-10), lower number is lower risk 7 02/02/2023 Data from: https://www.neighborhoodatlas.medicine.[facility]/. Last address used for calculation [address] [...] Entry Date Author No 08/19/2014 10:35 AM EST Rob, Q ueenester M, TOOTH CUTTER CONTACT WHEEL documented in this encounter Plan of Treatment Upcoming Encounters Date Type Department Care Team (Latest Contact Info) Description 2025 10:00 AM EDT Office Visit [place] [address] [place] [address] 3 month lab 02/20/2025 10:20 AM EDT Visit (SP) Office Hematology/Oncology [address] [place] [address] Saul Galdamez MD [address] [place] [address] 3 moonth [place] [facility] lab a week prior documented as of this encounter Visit Diagnoses Not on filedocumented in this encounter Care Teams Marine Engineering Consultant Relationship Specialty Start Date End Date Jamar Jones DO PCP - General Internal Medicine 08/04/14 Marco A Esqueda MD [facility] [address] [place] [address] Physician Hematology/Oncology 11/02/21 01/20/25 Galina Wall APRN.CHARGE NURSE [facility] [address] [place] [address] Nurse Practitioner Hematology/Oncology 11/02/21 Clementine Aguilar, ANITHA [address] [place] [place] [address] Specialty Benefits Representative Hematology/Oncology 11/02/21 Saul Galdamez MD [facility] [address] [place] [address] Physician Hematology/Oncology 01/21/25 documented as of this encounter
--- OUTSIDE RECORDS SUMMARY | 2025-01-30 08:03 | XMS_ITS | CCD ---
Author Organization [facility] Care Team Providers Care Refrigeration Insulator Name Role Phone Jamar Fall DO Primary Care Provider Dheeraj JAMES, Marco A R Unavailable [facility] CARPORT ERECTOR.ALEXA, Christo Unavailable [phone] Lauren RN, Clementine Unavailable JAMAR FALL Primary Care Physician Jamar Fall DO Primary Care Provider Marco A Esqueda MD R Unavailable [facility] CARPORT ERECTOR.ALEXA, Christo Unavailable [phone] Lauren WELSH, Clementine Unavailable Jamar Fall DO Primary Care Provider Dheeraj JAMES, Marco A R Unavailable [facility] CARPORT ERECTOR.BUSINESS DEVELOPMENT REPRESENTATIVE, Christo Unavailable Lauren RN, Clementine Unavailable [phone] Jamar Fall Unavailable JUAN DAVID, DR ALCARAZ [...] Consulting Unavaila ble Lauren WELSH, Clementine Unavailable Juan David JAMES, Jamar Lopez Primary Care Provider Jamar Fall DO Primary Care Provider LONG BOO Attending Unavailable MACRO A ESQUEDA Referring Unavailable EMELINA LOUIS Attending Unavailable BALL, JAMAR E Referring Unavailable PABLO CHRISTINA Attending Unavailable LONG BOO Attending Unavailable ALEXIA FRANCO Attending Unavailable KESHIA, BRIDGER Attending Unavailable LORA ENGLISH Attending Unavailable SCRUGGSAnthony Attending Unavailable SCRUGGS, Anthony Lee Attending Unavailable SCRUGGSAnthony Attending Unavailable SCRUGGSAnthony Attending Unavailable Sharon JAMES, Nicole Lang Attending Unavailable Sharon JAMES, Nicole Lang Attending Unavailable MARCO A ESQUEDA Referring Unavailable BALL, JAMAR E Primary Care Unavailable MARCO A ESQUEDA Attending Unavailable MARCO A ESQUEDA R Referring [...] Care Unavailable MARCO A ESQUEDA Attending Unavailable MARCO A ESQUEDA Referring Unavailable BALL, JAMAR E Primary Care Unavailable MARCO A ESQUEDA R Referring Unavailable BALL, JAMAR E Primary Care Unavailable BALL, JAMAR E Primary Care Unavailable BALL, JAMAR E Primary Care Unavailable Allergies Allergy Classification Reported Allergen(s) Allergy Type Date of Onset Reaction(s) Facility (18 sources) Penicillins; Translations: [PENICILLINS] Drug Allergy 1 Unknown (20 sources) Penicillin G; Translations: [penicillin G benzathine] Drug Allergy 1 Unknown (qualifier value) [facility] (20 sources) Penicillins Drug Allergy 5 Unknown (20 sources) Simvastatin; Translations: [SIMVASTATIN] Drug Allergy 2 Unknown (1 source) Penicillins Drug allergy (disorder) 5 [facility] (1 source) Penicillin Drug Allergy Unknown [facility] Other (1 source) Allergies Reconciled Propensity to adverse reactions Unknown [facility] Other (1 source) patient allergy list reviewed by nurse or physicia Propensity to adverse reactions 9 Comment:Done [facility] Other (3 sources) Simvastatin Propensity to adverse reactions 2 [facility] (1 source) Penicillins Drug Allergy 5 Unknown Medications Current Medications Medication Drug Class(es) Dates [...] on above: Take [address] [facility] once daily. Contour Next - [...] sources) Anticholinergic Start: 10-20-20[address]06% [facility] Refill(s) 0 Start Date: 10/20/23 Status: Ordered [...] by mouth twice daily. Take by mouth. Stpzapguafkgb-Gnqqekuj-Wgwtq n (MULTIVITAMIN 50 PLUS) tab (20 sources) [...] Comment on above: Take 1 tablet by [facility] twice daily. clopidogrel 75 mg oral [...] Coronary arteriosclerosis; Translations: [Atherosclerotic heart disease of [place] coronary artery without angina pectoris] Onset: 10-10-2014 01-01-2019 Chronic Diabetes mellitus with complications (20 sources) Type 2 diabetes mellitus; Translations: [Type 2 diabetes mellitus with hyperglycemia] Onset: 07-17-1959 Chronic Diabetes mellitus without complication (13 sources) Type 2 diabetes mellitus without complication; [...] - 04/2022Echo: ROGER 1.3, Velocity 280, gradient / - 06/2023 Hyperplasia of prostate (2 sources) [...] Test Name Value Interpretation Reference Range [facility] PABLO [id number]) 1945 M Date Time Provider Department 11/07/24 10:00 AM MARCO A ESQUEDA During your visit today, we recorded the following information about you: Temperature Pulse Respiration Blood pressure 97.4 degrees 81/minute 16/minute 131/56 Weight Height 92.5 kg 1.676 m Marco A Esqueda MD 11/07/2024 2:08 PM Signed PATIENT NAME: Pablo Felix DATE: 11/07/2024 PRIMARY CARE PHYSICIAN: Dr. Jamar Fall OTHER PHYSICIANS: Dr. Anthony Scruggs, Dr. Khan, [facility] Cardiology Portions of this encounter note have been copied from the note from 08/08/2024 and has been updated where appropriate, and reflect my current medical decision making from today. CC: This is a 79 year old male with metastatic prostate cancer, seen for scheduled follow-up. INTERIM HISTORY: Since the patient's last visit here he has had no significant medical changes. He remains on Xtandi 160 mg daily which he is tolerating. He also receives Lupron every [address] Scruggs, last given 10/07/2024. His only new complaint is intermittent diarrhea. Over the past several months the patient has noticed loose stools which appear to be related to diet. He suspects lactose intolerance. By cutting back on dairy and taking OTC meds (Lactaid) his diarrhea has improved. No other GI symptoms. Denies any bone pain. Denies difficulties with urination. Despite the above he feels well overall. MEDICATIONS: Current Outpatient Medications Medication Sig enzalutamide (XTANDI) 40 mg tablet Take 4 tablets (160 mg) by mouth once daily. Calcium Citrate-Vitamin D3 200 mg-6.25 mcg (250 unit) tab Take 2 tablets by mouth once daily. metoprolol succinate ER (TOPROL XL) 25 mg 24 hr tablet Take by mouth. Jjfbhblvgzxxr-Bgmjwyhu-Jimz in (MULTIVITAMIN 50 PLUS) tab Take 1 [...] paralysis, seizures or tremors. PHYSICAL EXAM: BP 131/56 Pulse 81 Temp 36.3 ?C (97.4 ?F) (Temporal) Resp 16 Ht 167.6 cm (5' 5.98 ) Wt 92.5 kg (203 lb 14.8 oz) SpO2 99% BMI 32.93 kg/m? ECOG PS: 0-1 General: Alert, oriented x 3. NAD. Non-toxic appearing. Well-nourished. HEENT: No scleral icterus. Heart: HRR s1s2 Lungs: Lungs CTA, no wheezing, rales, rhonchi or crackles ,non-labored breathing. Abdominal: Abd rounded but soft, NT, ND. Extremities: No edema or cyanosis. Skin: No rashes, bruising, or petechiae. Neuro: Non-focal exam without deficits. 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 Left base margin positive for neoplasm. Seminal vesicles with no diagnostic abnormality. 2 resected lymph nodes negative for neoplasm. LABS: Hemoglobin (g/dL) Date Value 10/31/2024 12.4 05/08/2018 12.8 Hem (more content not included)... Normal [facility] CBC W Auto Differential pane l (Bld)on 10-31-2024 Basophils (Bld) [#/Vol] 0.05 10*3/uL Normal <0.11 [facility] Comment on above: Order Comment: Speci men Type: BLOOD SPECIMEN Ordering Facility: [facility] Address: [address] [place] [address] Performed By: #### 2 857-1 #### [facility] CLIA [id number] [address] [place] [address] [place] Basophils/100 WBC (Bld) 0.7 % Normal [facility] Comment on above: Order Comment: Speci men Type: BLOOD SPECIMEN Ordering Facility: [facility] Address: [address] [place] [address] Performed By: #### 2 857-1 #### [facility] CLIA [id number] [address] [place] [address] [place] Differential cell count method Nom (Bld) Auto Normal [facility] Comment on above: Order Comment: Speci men Type: BLOOD SPECIMEN Ordering Facility: [facility] Address: [address] [place] [address] Performed By: #### 2 857-1 #### [facility] CLIA [id number] [address] [place] [address] [place] Eosinophils (Bld) [#/Vol] 0.51 10*3/uL High <0.46 [facility] Comment on above: Order Comment: Speci men Type: BLOOD SPECIMEN Ordering Facility: [facility] Address: [address] [place] [address] Performed By: #### 2 857-1 #### [facility] CLIA [id number] [address] [place] [address] [place] Eosinophils/100 WBC (Bld) 7.3 % Normal [facility] Comment on above: Order Comment: Speci men Type: BLOOD SPECIMEN Ordering Facility: [facility] Address: [address] [place] [address] Performed By: #### 2 857-1 #### [facility] CLIA [id number] [address] [place] [address] [place] Erythrocyte distribution width (RBC) [Ratio] 12.9 % Normal 11.5-15.0 [facility] Comment on above: Order Comment: Speci men Type: BLOOD SPECIMEN Ordering Facility: [facility] Address: [address] [place] [address] Performed By: #### 2 857-1 #### [facility] CLIA [id number] [address] [place] [address] [place] Hematocrit (Bld) [Volume fraction] 36.0 % Low 39.0-51.0 [facility] Comment on above: Order Comment: Speci men Type: BLOOD SPECIMEN Ordering Facility: [facility] Address: [address] [place] [address] Performed By: #### 2 857-1 #### [facility] CLIA [id number] [address] [place] [address] [place] Hemoglobin (Bld) [Mass/Vol] 12.4 g/dL Low 13.0-17.0 [facility] Comment on above: Order Comment: Speci men Type: BLOOD SPECIMEN Ordering Facility: [facility] Address: [address] [place] [address] Performed By: #### 2 857-1 #### [facility] CLIA [id number] [address] [place] [address] [place] Immature granulocytes (Bld) [#/Vol] 0.04 10*3/uL Normal <0.10 [facility] Comment on above: Order Comment: Speci men Type: BLOOD SPECIMEN Ordering Facility: [facility] Address: [address] [place] [address] Performed By: #### 2 857-1 #### [facility] CLIA [id number] [address] [place] [address] [place] Immature granulocytes/100 WBC (Bld) 0.6 % Normal [facility] Comment on above: Order Comment: Speci men Type: BLOOD SPECIMEN Ordering Facility: [facility] Address: [address] [place] [address] Performed By: #### 2 857-1 #### [facility] CLIA [id number] [address] [place] [address] [place] Lymphocytes (Bld) [#/Vol] 1.80 10*3/uL Normal 1.00-4.00 [facility] Comment on above: Order Comment: Speci men Type: BLOOD SPECIMEN Ordering Facility: [facility] Address: [address] [place] [address] Performed By: #### 2 857-1 #### [facility] CLIA [id number] [address] [place] [address] [place] Lymphocytes/100 WBC (Bld) 25.8 % Normal [facility] Comment on above: Order Comment: Speci men Type: BLOOD SPECIMEN Ordering Facility: [facility] Address: [address] [place] [address] Performed By: #### 2 857-1 #### [facility] CLIA [id number] [address] [place] [address] [place] MCH (RBC) [Entitic mass] 32.2 pg Normal 26.0-34.0 [facility] Comment on above: Order Comment: Speci men Type: BLOOD SPECIMEN Ordering Facility: [facility] Address: [address] [place] [address] Performed By: #### 2 857-1 #### [facility] CLIA [id number] [address] [place] [address] [place] MCHC (RBC) [Mass/Vol] 34.4 g/dL Normal 30.5-36.0 [facility] Comment on above: Order Comment: Speci men Type: BLOOD SPECIMEN Ordering Facility: [facility] Address: [address] [place] [address] Performed By: #### 2 857-1 #### [facility] CLIA [id number] [address] [place] [address] [place] MCV (RBC) [Entitic vol] 93.5 fL Normal 80.0-100.0 [facility] Comment on above: Order Comment: Speci men Type: BLOOD SPECIMEN Ordering Facility: [facility] Address: [address] [place] [address] Performed By: #### 2 857-1 #### [facility] CLIA [id number] [address] [place] [address] [place] Monocytes (Bld) [#/Vol] 0.69 10*3/uL Normal <0.87 [facility] Comment on above: Order Comment: Speci men Type: BLOOD SPECIMEN Ordering Facility: [facility] Address: [address] [place] [address] Performed By: #### 2 857-1 #### [facility] CLIA [id number] [address] [place] [address] [place] Monocytes/100 WBC (Bld) 9.9 % Normal [facility] Comment on above: Order Comment: Speci men Type: BLOOD SPECIMEN Ordering Facility: [facility] Address: [address] [place] [address] Performed By: #### 2 857-1 #### [facility] CLIA [id number] [address] [place] [address] [place] Neutrophils (Bld) [#/Vol] 3.90 10*3/uL Normal 1.45-7.50 [facility] Comment on above: Order Comment: Speci men Type: BLOOD SPECIMEN Ordering Facility: [facility] Address: [address] [place] [address] Performed By: #### 2 857-1 #### [facility] CLIA [id number] [address] [place] [address] [place] Neutrophils/100 WBC (Bld) 55.7 % Normal [facility] Comment on above: Order Comment: Speci men Type: BLOOD SPECIMEN Ordering Facility: [facility] Address: [address] [place] [address] Performed By: #### 2 857-1 #### [facility] CLIA [id number] [address] [place] [address] [place] Nucleated RBC (Bld) [#/Vol] 10*3/uL Normal <0.01 [facility] Comment on above: Order Comment: Speci men Type: BLOOD SPECIMEN Ordering Facility: [facility] Address: [address] [place] [address] Performed By: #### 2 857-1 #### [facility] CLIA [id number] [address] [place] [address] [place] Nucleated RBC/100 WBC (Bld) [Ratio] 0.0 /100 WBC Normal [facility] Comment on above: Order Comment: Speci men Type: BLOOD SPECIMEN Ordering Facility: [facility] Address: [address] [place] [address] Performed By: #### 2 857-1 #### [facility] CLIA [id number] [address] [place] [address] [place] Platelet mean volume (Bld) [Entitic vol] 9.8 fL Normal 9.0-12.7 [facility] Comment on above: Order Comment: Speci men Type: BLOOD SPECIMEN Ordering Facility: [facility] Address: [address] [place] [address] Performed By: #### 2 857-1 #### [facility] CLIA [id number] [address] [place] [address] [place] Platelets (Bld) [#/Vol] 204 10*3/uL Normal 150-400 [facility] Comment on above: Order Comment: Speci men Type: BLOOD SPECIMEN Ordering Facility: [facility] Address: [address] [place] [address] Performed By: #### 2 857-1 #### [facility] CLIA [id number] [address] [place] [address] [place] RBC (Bld) [#/Vol] 3.85 10*6/uL Low 4.20-6.00 [facility] Comment on above: Order Comment: Speci men Type: BLOOD SPECIMEN Ordering Facility: [facility] Address: [address] [place] [address] Performed By: #### 2 857-1 #### [facility] CLIA [id number] [address] [place] [address] [place] WBC (Bld) [#/Vol] 6.99 10*3/uL Normal 3.70-11.00 [facility] Comment on above: Order Comment: Speci men Type: BLOOD SPECIMEN Ordering Facility: [facility] Address: [address] [place] [address] Performed By: #### 2 857-1 #### [facility] CLIA [id number] [address] [place] [address] [place] Comprehensive metabolic 2000 panelon 10-31-2024 Albumin [Mass/Vol] 4.1 g/dL Normal 3.9-4.9 [facility] Comment on above: Order Comment: Speci men Type: BLOOD SPECIMEN Ordering Facility: [facility] Address: [address] [place] [address] Performed By: #### 2 857-1 #### [facility] CLIA [id number] [address] [place] [address] [place] ALP [Catalytic activity/Vol] 84 U/L Normal 38-113 [facility] Comment on above: Order Comment: Speci men Type: BLOOD SPECIMEN Ordering Facility: [facility] Address: [address] [place] [address] Performed By: #### 2 857-1 #### [facility] CLIA [id number] [address] [place] [address] [place] ALT [Catalytic activity/Vol] 18 U/L Normal 10-54 [facility] Comment on above: Order Comment: Speci men Type: BLOOD SPECIMEN Ordering Facility: [facility] Address: [address] [place] [address] Performed By: #### 2 857-1 #### [facility] CLIA [id number] [address] [place] [address] [place] Anion gap [Moles/Vol] 12 mmol/L Normal 8-15 [facility] Comment on above: Order Comment: Speci men Type: BLOOD SPECIMEN Ordering Facility: [facility] Address: [address] [place] [address] Performed By: #### 2 857-1 #### [facility] CLIA [id number] [address] [place] [address] [place] AST [Catalytic activity/Vol] 18 U/L Normal 14-40 [facility] Comment on above: Order Comment: Speci men Type: BLOOD SPECIMEN Ordering Facility: [facility] Address: [address] [place] [address] Performed By: #### 2 857-1 #### [facility] CLIA [id number] [address] [place], [place] [address] [place] Bilirubin [Mass/Vol] 0.5 mg/dL Normal 0.2-1.3 [facility] Comment on above: Order Comment: Speci men Type: BLOOD SPECIMEN Ordering Facility: [facility] Address: [address] [place] [id number] Performed By: #### 2 857-1 #### [facility] CLIA [id number] [address] [place] [address] [place] Calcium [Mass/Vol] 10.1 mg/dL Normal 8.5-10.2 [facility] Comment on above: Order Comment: Speci men Type: BLOOD SPECIMEN Ordering Facility: [facility] Address: [address] [place], [place] [address] Performed By: #### 2 857-1 #### [facility] CLIA [id number] [address] [place] [address] [place] Chloride [Moles/Vol] 101 mmol/L Normal 98-107 [facility] Comment on above: Order Comment: Speci men Type: BLOOD SPECIMEN Ordering Facility: [facility] Address: [address] [place] [address] Performed By: #### 2 857-1 #### [facility] CLIA [id number] [address] [place] [address] [place] CO2 [Moles/Vol] 24 mmol/L Normal 22-30 [facility] Comment on above: Order Comment: Speci men Type: BLOOD SPECIMEN Ordering Facility: [facility] Address: [address] [place], [place] [address] Performed By: #### 2 857-1 #### [facility] CLIA [id number] [address] [place], [place] [address] [place] Creatinine [Mass/Vol] 0.88 mg/dL Normal 0.73-1.22 [facility] Comment on above: Order Comment: Speci men Type: BLOOD SPECIMEN Ordering Facility: [facility] Address: [address] [place], [place] [address] Performed By: #### 2 857-1 #### [facility] CLIA [id number] [address] [place] [address] [place] Creatinine and Glomerular filtration rate.predicted panel (S/P/Bld) 88 mL/min/1.73m??? Normal >=60 [facility] Comment on above: Order Comment: Nicanor camilo Type: BLOOD SPECIMEN Ordering Facility: [facility] Address: [address] [place] [address] Result Comment: Renae mated Glomerular Filtration Rate [...] GFR. Performed By: #### 2 857-1 #### [facility] CLIA [id number] [address] [place] [address] [place] Glucose [Mass/Vol] 123 mg/dL High 74-99 [facility] Comment on above: Order Comment: Nicanor camilo Type: BLOOD SPECIMEN Ordering Facility: [facility] Address: [address] [place] [address] Result Comment: The [place] [employer] Association (ADA) provides guidance for cutoff [...] Standards of Medical Care in Diabetes 2016, [place] [employer]. Diabetes Care. 2016.39(Suppl 1). Performed By: #### 2 857-1 #### [facility] CLIA [id number] [address] [id number] [address] [place] Potassium [Moles/Vol] 4.6 mmol/L Normal 3.7-5.1 [facility] Comment on above: Order Comment: Speci men Type: BLOOD SPECIMEN Ordering Facility: [facility] Address: [address] [place] [address] Performed By: #### 2 857-1 #### [facility] CLIA [id number] [address] [place] [address] [place] Protein [Mass/Vol] 6.5 g/dL Normal 6.3-8.0 [facility] Comment on above: Order Comment: Speci men Type: BLOOD SPECIMEN Ordering Facility: [facility] Address: [address] [place] [address] Performed By: #### 2 857-1 #### [facility] CLIA [id number] [address] [place] [address] [place] Sodium [Moles/Vol] 137 mmol/L Normal 136-144 [facility] Comment on above: Order Comment: Speci men Type: BLOOD SPECIMEN Ordering Facility: [facility] Address: [address] [place] [address] Performed By: #### 2 857-1 #### [facility] CLIA [id number] [address] [place] [address] [place] Urea nitrogen [Mass/Vol] 16 mg/dL Normal 9-24 [facility] Comment on above: Order Comment: Speci men Type: BLOOD SPECIMEN Ordering Facility: [facility] Address: [address] [place] [address] Performed By: #### 2 857-1 #### [facility] CLIA [id number] [address] [place] [address] [place] [facility] Prostate specific Ag [Mass/Vol] 0.22 ng/mL Normal <2.60 [facility] Comment on above: Order Comment: Speci men Type: BLOOD SPECIMEN Ordering Facility: [facility] Address: [address] [place] [address] Result Comment: Tota l PSA test methodology used is the Electrochemiluminescence Immunoassay by [employer]. Total PSA values by differing methodologies cannot be interchanged. Performed By: #### 2 857-1 #### [facility] CLIA [id number] [address] [place] [address] [place] [address] [place] Ambulatory Visit Summaryon 0 10-07-2024 Ambulatory Visit [...] mg Tab) ipratropium nasal (ipratropium Nasal 0.06% [facility]) metformin (metformin 1000 mg oral tablet) metoprolol [...] Anthony SCRUGGS MD Where: [facility] [place] [address] [place] [address] [place] [address]- You Need to Schedule the Following Appointments Follow Up with Anthony SCRUGGS MD, URL When: Comments: 6 mos w/ PSA and Lupron Where: [facility] [address], [facility] [place] [phone] Medications What How Much When Instructions Unchanged [...] concerns Unchanged ipratropium nasal (ipratropium Nasal 0.06% [facility]) Contact prescribing physician if questions or concerns [...] prostate cancer (more content not included)... Normal [facility] Office/Clinic Noteon 10-07-2024 Urology Office/Clinic Note [...] URL [facility] [address], [place] [address] [phone] Additional Instructions: 6 mos w/ PSA and Lupron Patient Education Hormone Suppression Therapy for Prostate Cancer I, Jeanine Crandall, personally scribed for Dr. Scruggs on 10/07/2024 [...] 1 tab(s), Oral, Daily ipratropium Nasal 0.06% [facility] metformin 1000 mg oral tablet, Oral, BID [...] virus vacc (more content not included)... Normal [facility] Comment on above: Result Comment: Elec tronically Signed By: KAEL JAMES, Anthony Lee\.br\Date and Time Signed: 10/07/24 10:00 EDT\.br\Electronically Co-Signed By: Jeanine Crandall\.stephanie\Date and Time Co-Signed: 10/07/24 09:59 EDT CNOVSPon 08-08-2024 CNOVSP Visit (SP) Office (Kiara MUELLER) PABLO FELIX ([id number]) 1945 M Date Time Provider Department 08/08/24 9:30 AM CHRISTO HOWARD During your visit today, we recorded the following information about you: Temperature Pulse Respiration Blood pressure 97.9 degrees 57/minute 16/minute 149/56 Weight Height 95 kg 1.676 m Christo Howard APRN.BUSINESS DEVELOPMENT REPRESENTATIVE 08/08/2024 12:09 PM Signed PATIENT NAME: Pablo Felix DATE: 08/08/2024 PRIMARY CARE PHYSICIAN: Dr. Jamar Fall OTHER PHYSICIANS: Dr. Anthony Scruggs, Dr. Khan, [facility] Cardiology Portions of this [...] mg 24 hr tablet Take by mouth. 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 Left base margin positive for neoplasm. Seminal vesicles with no diagnostic abnormality. 2 resected lymph nodes negative for neoplasm. LABS: Hemoglobin (g/dL) Date Value 08/01/2024 12.2 05/08/2018 12.8 Hematoc (more content not included)... Normal [facility] Basophils Auto (Bld) [#/Vol] on 08-01-2024 Basophils (Bld) [#/Vol] Automated basophil count <0.11 [facility] Basophils/100 WBC Auto (Bld) on 08-01-2024 Basophils/100 WBC (Bld) Automated basophil % [facility] Blood manual differential co mment interpretation narrativeon 08-01-2024 Manual differential comment [place] (Bld) [Interp] Blood manual differential comment interpretation narrative [facility] CBC W Auto Differential pane l (Bld)on 08-01-2024 Basophils (Bld) [#/Vol] 0.03 10*3/uL [facility] Basophils/100 WBC (Bld) 0.5 % Differential cell count method Nom (Bld) Auto Eosinophils (Bld) [#/Vol] 0.5 10*3/uL High [facility] Eosinophils/100 WBC (Bld) 8.5 % Erythrocyte distribution width (RBC) [Ratio] 12.7 % 11.5 - 15.0 % Hematocrit (Bld) [Volume fraction] 35.7 % Low 39.0 - 51.0 % Hemoglobin (Bld) [Mass/Vol] 12.2 g/dL Low 13.0 - 17.0 g/dL Immature granulocytes (Bld) [#/Vol] 0.04 10*3/uL [facility] Immature granulocytes/100 WBC (Bld) 0.7 % Interpretation and review of laboratory results Abnormal Lymphocytes (Bld) [#/Vol] 1.55 10*3/uL Lymphocytes/100 WBC (Bld) 26.5 % MCH (RBC) [Entitic mass] 32.4 pg 26.0 - 34.0 pg MCHC (RBC) [Mass/Vol] 34.2 g/dL 30.5 - 36.0 g/dL MCV (RBC) [Entitic vol] 94.9 fL 80.0 - 100.0 fL Monocytes (Bld) [#/Vol] 0.55 10*3/uL [facility] Monocytes/100 WBC (Bld) 9.4 % Neutrophils (Bld) [#/Vol] 3.19 10*3/uL Neutrophils/100 WBC (Bld) 54.4 % Nucleated RBC (Bld) [#/Vol] [facility] Nucleated RBC/100 WBC (Bld) [Ratio] 0 % /100 WBC Platelet mean volume (Bld) [Entitic vol] 9.4 fL 9.0 - 12.7 fL Platelets (Bld) [#/Vol] 177 10*3/uL RBC (Bld) [#/Vol] 3.76 10*6/uL Low 4.20 - 6.0 0 m/uL WBC (Bld) [#/Vol] 5.86 10*3/uL [facility] Basophils (Bld) [#/Vol] 0.03 10*3/uL Normal <0.11 [facility] Comment on above: Order Comment: Speci men Type: BLOOD SPECIMEN Ordering Facility: [facility] Address: [address] [place], [place] [id number] Performed By: #### 2 857-1 #### [facility] CLIA [id number] [address] [place] [address] [place] Basophils/100 WBC (Bld) 0.5 % Normal [facility] Comment on above: Order Comment: Speci men Type: BLOOD SPECIMEN Ordering Facility: [facility] Address: [address] [place] [address] Performed By: #### 2 857-1 #### [facility] CLIA [id number] [address] [place] [address] [place] Differential cell count method Nom (Bld) Auto Normal [facility] Comment on above: Order Comment: Speci men Type: BLOOD SPECIMEN Ordering Facility: [facility] Address: [address] [place] [address] Performed By: #### 2 857-1 #### [facility] CLIA [id number] [address] [place] [address] [place] Eosinophils (Bld) [#/Vol] 0.50 10*3/uL High <0.46 [facility] Comment on above: Order Comment: Speci men Type: BLOOD SPECIMEN Ordering Facility: [facility] Address: [address] [place] [address] Performed By: #### 2 857-1 #### [facility] CLIA [id number] [address] [place] [address] [place] Eosinophils/100 WBC (Bld) 8.5 % Normal [facility] Comment on above: Order Comment: Speci men Type: BLOOD SPECIMEN Ordering Facility: [facility] Address: [address] [place] [address] Performed By: #### 2 857-1 #### [facility] CLIA [id number] [address] [place] [address] [place] Erythrocyte distribution width (RBC) [Ratio] 12.7 % Normal 11.5-15.0 [facility] Comment on above: Order Comment: Speci men Type: BLOOD SPECIMEN Ordering Facility: [facility] Address: [address] [place] [address] Performed By: #### 2 857-1 #### [facility] CLIA [id number] [address] [place] [address] [place] Hematocrit (Bld) [Volume fraction] 35.7 % Low 39.0-51.0 [facility] Comment on above: Order Comment: Speci men Type: BLOOD SPECIMEN Ordering Facility: [facility] Address: [address] [place] [address] Performed By: #### 2 857-1 #### [facility] CLIA [id number] [address] [place] [address] [place] Hemoglobin (Bld) [Mass/Vol] 12.2 g/dL Low 13.0-17.0 [facility] Comment on above: Order Comment: Speci men Type: BLOOD SPECIMEN Ordering Facility: [facility] Address: [address] [place] [address] Performed By: #### 2 857-1 #### [facility] CLIA [id number] [address] [place] [address] [place] Immature granulocytes (Bld) [#/Vol] 0.04 10*3/uL Normal <0.10 [facility] Comment on above: Order Comment: Speci men Type: BLOOD SPECIMEN Ordering Facility: [facility] Address: [address] [place] [address] Performed By: #### 2 857-1 #### [facility] CLIA [id number] [address] [place] [address] [place] Immature granulocytes/100 WBC (Bld) 0.7 % Normal [facility] Comment on above: Order Comment: Speci men Type: BLOOD SPECIMEN Ordering Facility: [facility] Address: [address] [place] [address] Performed By: #### 2 857-1 #### [facility] CLIA [id number] [address] [place] [address] [place] Lymphocytes (Bld) [#/Vol] 1.55 10*3/uL Normal 1.00-4.00 [facility] Comment on above: Order Comment: Speci men Type: BLOOD SPECIMEN Ordering Facility: [facility] Address: [address] [place] [address] Performed By: #### 2 857-1 #### [facility] CLIA [id number] [address] [place] [address] [place] Lymphocytes/100 WBC (Bld) 26.5 % Normal [facility] Comment on above: Order Comment: Speci men Type: BLOOD SPECIMEN Ordering Facility: [facility] Address: [address] [place] [address] Performed By: #### 2 857-1 #### [facility] CLIA [id number] [address] [place] [address] [place] MCH (RBC) [Entitic mass] 32.4 pg Normal 26.0-34.0 [facility] Comment on above: Order Comment: Speci men Type: BLOOD SPECIMEN Ordering Facility: [facility] Address: [address] [place] [address] Performed By: #### 2 857-1 #### [facility] CLIA [id number] [address] [place] [address] [place] MCHC (RBC) [Mass/Vol] 34.2 g/dL Normal 30.5-36.0 [facility] Comment on above: Order Comment: Speci men Type: BLOOD SPECIMEN Ordering Facility: [facility] Address: [address] [place] [address] Performed By: #### 2 857-1 #### [facility] CLIA [id number] [address] [place] [address] [place] MCV (RBC) [Entitic vol] 94.9 fL Normal 80.0-100.0 [facility] Comment on above: Order Comment: Speci men Type: BLOOD SPECIMEN Ordering Facility: [facility] Address: [address] [place] [address] Performed By: #### 2 857-1 #### [facility] CLIA [id number] [address] [place] [address] [place] Monocytes (Bld) [#/Vol] 0.55 10*3/uL Normal <0.87 [facility] Comment on above: Order Comment: Speci men Type: BLOOD SPECIMEN Ordering Facility: [facility] Address: [address] [place] [address] Performed By: #### 2 857-1 #### [facility] CLIA [id number] [address] [place] [address] [place] Monocytes/100 WBC (Bld) 9.4 % Normal [facility] Comment on above: Order Comment: Speci men Type: BLOOD SPECIMEN Ordering Facility: [facility] Address: [address] [place] [address] Performed By: #### 2 857-1 #### [facility] CLIA [id number] [address] [place] [address] [place] Neutrophils (Bld) [#/Vol] 3.19 10*3/uL Normal 1.45-7.50 [facility] Comment on above: Order Comment: Speci men Type: BLOOD SPECIMEN Ordering Facility: [facility] Address: [address] [place] [address] Performed By: #### 2 857-1 #### [facility] CLIA [id number] [address] [place] [address] [place] Neutrophils/100 WBC (Bld) 54.4 % Normal [facility] Comment on above: Order Comment: Speci men Type: BLOOD SPECIMEN Ordering Facility: [facility] Address: [address] [place] [address] Performed By: #### 2 857-1 #### [facility] CLIA [id number] [address] [place] [address] [place] Nucleated RBC (Bld) [#/Vol] 10*3/uL Normal <0.01 [facility] Comment on above: Order Comment: Speci men Type: BLOOD SPECIMEN Ordering Facility: [facility] Address: [address] [place] [address] Performed By: #### 2 857-1 #### [facility] CLIA [id number] [address] [place] [address] [place] Nucleated RBC/100 WBC (Bld) [Ratio] 0.0 /100 WBC Normal [facility] Comment on above: Order Comment: Speci men Type: BLOOD SPECIMEN Ordering Facility: [facility] Address: [address] [place] [address] Performed By: #### 2 857-1 #### [facility] CLIA [id number] [address] [place] [address] [place] Platelet mean volume (Bld) [Entitic vol] 9.4 fL Normal 9.0-12.7 [facility] Comment on above: Order Comment: Speci men Type: BLOOD SPECIMEN Ordering Facility: [facility] Address: [address] [place] [address] Performed By: #### 2 857-1 #### [facility] CLIA [id number] [address] [place] [address] [place] Platelets (Bld) [#/Vol] 177 10*3/uL Normal 150-400 [facility] Comment on above: Order Comment: Speci men Type: BLOOD SPECIMEN Ordering Facility: [facility] Address: [address] [place] [address] Performed By: #### 2 857-1 #### [facility] CLIA [id number] [address] [place] [address] [place] RBC (Bld) [#/Vol] 3.76 10*6/uL Low 4.20-6.00 [facility] Comment on above: Order Comment: Speci men Type: BLOOD SPECIMEN Ordering Facility: [facility] Address: [address] [place] [address] Performed By: #### 2 857-1 #### [facility] CLIA [id number] [address] [place] [address] OF [facility] WBC (Bld) [#/Vol] 5.86 10*3/uL Normal 3.70-11.00 [facility] Comment on above: Order Comment: Speci men Type: BLOOD SPECIMEN Ordering Facility: [facility] Address: [address] [place] [address] Performed By: #### 2 857-1 #### [facility] CLIA [id number] [address] [place] [address] OF [place] Comprehensive metabolic 2000 panelOrdered By: Liza Lilly on 08-01-2024 Albumin [Mass/Vol] 4.2 g/dL 3.9 - 4.9 g/dL ALP [Catalytic activity/Vol] 75 U/L 38 - 113 U/L ALT [Catalytic activity/Vol] 17 U/L 10 - 54 U/L Anion gap [Moles/Vol] 11 mmol/L 8 - 15 mmol/L AST [Catalytic activity/Vol] 17 U/L 14 - 40 U/L Bilirubin [Mass/Vol] 0.6 mg/dL 0.2 - 1.3 mg/dL Calcium [Mass/Vol] 10.3 mg/dL High 8.5 - 10. 2 mg/dL Chloride [Moles/Vol] 100 mmol/L 98 - 107 mmol/L CO2 [Moles/Vol] 26 mmol/L 22 - 30 mmol/L Creatinine [Mass/Vol] 0.81 mg/dL 0.73 - 1.22 mg/dL GFR/1.73 sq M.predicted among non-blacks MDRD (S/P/Bld) [Vol rate/Area] 90 mL/min/{1.73_m2} - [facility] Comment on above: Estimated Glomerular Filtration Rate (eGFR) is calculated using the 202 CKD-EPI creatinine equation. This equation utilizes serum creatinine, sex, and age as parameters. The creatinine assay has traceable calibration to isotope dilution-mass spectrometry. Refer to KDIGO guidelines for clinical interpretation. In patients with unstable renal function, e.g. those with acute kidney injury, the eGFR may not accurately reflect actual GFR. Glucose [Mass/Vol] 119 mg/dL High 74 - 99 mg/dL Comment on above: The [place] Diabete s Association (ADA) provides guidance for [...] Standards of Medical Care in Diabetes 2016, [place] [employer]. Diabetes Care. 2016.39(Suppl 1). Interpretation and review of laboratory results Abnormal Potassium [Moles/Vol] 4.8 mmol/L 3.7 - 5.1 mmol/L Protein [Mass/Vol] 6.3 g/dL 6.3 - 8.0 g/dL Sodium [Moles/Vol] 137 mmol/L 136 - 144 mmol/L Urea nitrogen [Mass/Vol] 14 mg/dL 9 - 24 mg/dL [facility] Comprehensive metabolic 2000 panelon 08-01-2024 Albumin [Mass/Vol] 4.2 g/dL Normal 3.9-4.9 [facility] Comment on above: Order Comment: Speci men Type: BLOOD SPECIMEN Ordering Facility: [facility] Address: [address] [place] [address] Performed By: #### 2 857-1 #### [facility] CLIA [id number] [address] [place], [place] [address] [id number] [address] [place] ALP [Catalytic activity/Vol] 75 U/L Normal 38-113 [facility] Comment on above: Order Comment: Speci men Type: BLOOD SPECIMEN Ordering Facility: [facility] Address: [address] [place] [address] Performed By: #### 2 857-1 #### [facility] CLIA [id number] [address] [place] [address] [place] ALT [Catalytic activity/Vol] 17 U/L Normal 10-54 [facility] Comment on above: Order Comment: Speci men Type: BLOOD SPECIMEN Ordering Facility: [facility] Address: [address] [place] [address] Performed By: #### 2 857-1 #### [facility] CLIA [id number] [address] [place] [address] [place] Anion gap [Moles/Vol] 11 mmol/L Normal 8-15 [facility] Comment on above: Order Comment: Speci men Type: BLOOD SPECIMEN Ordering Facility: [facility] Address: [address] [place] [address] Performed By: #### 2 857-1 #### [facility] CLIA [id number] [address] [place] [address] [place] AST [Catalytic activity/Vol] 17 U/L Normal 14-40 [facility] Comment on above: Order Comment: Speci men Type: BLOOD SPECIMEN Ordering Facility: [facility] Address: [address] [place] [address] Performed By: #### 2 857-1 #### [facility] CLIA [id number] [address] [place] [address] [place] Bilirubin [Mass/Vol] 0.6 mg/dL Normal 0.2-1.3 [facility] Comment on above: Order Comment: Speci men Type: BLOOD SPECIMEN Ordering Facility: [facility] Address: [address] [place] [address] Performed By: #### 2 857-1 #### [facility] CLIA [id number] [address] [place] [address] [place] Calcium [Mass/Vol] 10.3 mg/dL High 8.5-10.2 [facility] Comment on above: Order Comment: Speci men Type: BLOOD SPECIMEN Ordering Facility: [facility] Address: [address] [place] [address] Performed By: #### 2 857-1 #### [facility] CLIA [id number] [address] [place] [address] [place] Chloride [Moles/Vol] 100 mmol/L Normal 98-107 [facility] Comment on above: Order Comment: Speci men Type: BLOOD SPECIMEN Ordering Facility: [facility] Address: [address] [place] [address] Performed By: #### 2 857-1 #### [facility] CLIA [id number] [address] [place] [address] [place] CO2 [Moles/Vol] 26 mmol/L Normal 22-30 [facility] Comment on above: Order Comment: Speci men Type: BLOOD SPECIMEN Ordering Facility: [facility] Address: [address] [place] [address] Performed By: #### 2 857-1 #### [facility] CLIA [id number] [address] [place] [address] [place] Creatinine [Mass/Vol] 0.81 mg/dL Normal 0.73-1.22 [facility] Comment on above: Order Comment: Speci men Type: BLOOD SPECIMEN Ordering Facility: [facility] Address: [address] [place] [address] Performed By: #### 2 857-1 #### [facility] CLIA [id number] [address] [place] [address] [place] Creatinine and Glomerular filtration rate.predicted panel (S/P/Bld) 90 mL/min/1.73m??? Normal >=60 [facility] Comment on above: Order Comment: Nicanor camilo Type: BLOOD SPECIMEN Ordering Facility: [facility] Address: [address] [place] [address] Result Comment: Renae mated Glomerular Filtration Rate [...] GFR. Performed By: #### 2 857-1 #### [facility] CLIA [id number] [address] [place] [address] [place] Glucose [Mass/Vol] 119 mg/dL High 74-99 [facility] Comment on above: Order Comment: Nicanor camilo Type: BLOOD SPECIMEN Ordering Facility: [facility] Address: [address] [place] [address] Result Comment: The [place] Diabetes Association (ADA) provides guidance for cutoff [...] Standards of Medical Care in Diabetes 2016, [place] [employer]. Diabetes Care. 2016.39(Suppl 1). Performed By: #### 2 857-1 #### [facility] CLIA [id number] [address] [place] [address] [place] Potassium [Moles/Vol] 4.8 mmol/L Normal 3.7-5.1 [facility] Comment on above: Order Comment: Nicanor camilo Type: BLOOD SPECIMEN Ordering Facility: [facility] Address: [address] [place] [address] Performed By: #### 2 857-1 #### [facility] CLIA [id number] [address] [place] [address] [place] Protein [Mass/Vol] 6.3 g/dL Normal 6.3-8.0 [facility] Comment on above: Order Comment: Speci men Type: BLOOD SPECIMEN Ordering Facility: [facility] Address: [address] [place] [address] Performed By: #### 2 857-1 #### [facility] CLIA [id number] [address] [place] [address] [place] Sodium [Moles/Vol] 137 mmol/L Normal 136-144 [facility] Comment on above: Order Comment: Speci men Type: BLOOD SPECIMEN Ordering Facility: [facility] Address: [address] [place] [address] Performed By: #### 2 857-1 #### [facility] CLIA [id number] [address] [place] [address] [place] Urea nitrogen [Mass/Vol] 14 mg/dL Normal 9-24 [facility] Comment on above: Order Comment: Speci men Type: BLOOD SPECIMEN Ordering Facility: [facility] Address: [address] [place] [address] Performed By: #### 2 857-1 #### [facility] CLIA [id number] [address] [place] [address] [place] Eosinophils/100 WBC Auto (Bl d)on 08-01-2024 Eosinophils/100 WBC (Bld) Automated eosinophil % [facility] Erythrocyte distribution wid th Auto (RBC) [Ratio]on 08-01-2024 Erythrocyte distribution width (RBC) [Ratio] Erythrocyte distribution width [Ratio] by Automated count 11.5-15.0 [facility] Hematocrit Auto (Bld) [Volum e fraction]on 08-01-2024 Hematocrit (Bld) [Volume fraction] Hematocrit [Volume Fraction] of Blood by Automated count Low 39.0-51.0 [facility] Hemoglobin [Mass/volume] in Bloodon 08-01-2024 Hemoglobin (Bld) [Mass/Vol] Hemoglobin [Mass/volume] in Blood Low 13.0-17.0 [facility] - Chemistry and C hemistry - challengeon 08-01-2024 Albumin [Mass/Vol] 4.2 g/dL 3.9-4.9 [facility] ALP [Catalytic activity/Vol] 75 U/L 38-113 [facility] ALT [Catalytic activity/Vol] 17 U/L 10-54 [facility] AST [Catalytic activity/Vol] 17 U/L 14-40 [facility] Bilirubin [Mass/Vol] 0.6 mg/dL 0.2-1.3 [facility] Calcium [Mass/Vol] 10.3 mg/dL High 8.5-10.2 [facility] Chloride [Moles/Vol] 100 mmol/L 98-107 [facility] CO2 [Moles/Vol] 26 mmol/L 22-30 [facility] Creatinine [Mass/Vol] 0.81 mg/dL 0.73-1.22 [facility] Glucose [Mass/Vol] 119 mg/dL High 74-99 [facility] Comment on above: The [place] Diabete s Association (ADA) provides guidance for [...] Standards of Medical Care in Diabetes 2016, [place] Diabetes [employer]. Diabetes Care. 2016.39(Suppl 1). Potassium [Moles/Vol] 4.8 mmol/L 3.7-5.1 [facility] Sodium [Moles/Vol] 137 mmol/L 136-144 [facility] Urea nitrogen [Mass/Vol] 14 mg/dL 9-24 [facility] - Hematology and Cell countson 08-01-2024 Eosinophils (Bld) [#/Vol] 0.50 10*3/uL High <0.46 [facility] Immature granulocytes (Bld) [#/Vol] 0.04 10*3/uL <0.10 [facility] Immature granulocytes/100 WBC (Bld) 0.7 % [facility] Leukocytes [#/volume] correc jomar for nucleated erythrocytes in Blood by Automated counon 08-01-2024 WBC corrected for nucl RBC Auto (Bld) [#/Vol] Leukocytes [#/volume] corrected for nucleated erythrocytes in Blood by Automated coun 3.70-11.00 [facility] Lymphocytes Auto (Bld) [#/Vo l]on 08-01-2024 Lymphocytes (Bld) [#/Vol] Lymphocytes [#/volume] in Blood by Automated count 1.00-4.00 [facility] Lymphocytes/100 WBC Auto (Bl d)on 08-01-2024 Lymphocytes/100 WBC (Bld) Lymphocytes/100 leukocytes in Blood by Automated count [facility] MCH Auto (RBC) [Entitic mass ]on 08-01-2024 MCH (RBC) [Entitic mass] MCH [Entitic mass] by Automated count 26.0-34.0 [facility] MCHC Auto (RBC) [Mass/Vol]on 08-01-2024 MCHC (RBC) [Mass/Vol] MCHC [Mass/volume] by Automated count 30.5-36.0 [facility] MCV Auto (RBC) [Entitic vol] on 08-01-2024 MCV (RBC) [Entitic vol] MCV [Entitic volume] by Automated count 80.0-100.0 [facility] Monocytes Auto (Bld) [#/Vol] on 08-01-2024 Monocytes (Bld) [#/Vol] Automated blood monocyte count <0.87 [facility] Monocytes/100 WBC Auto (Bld) on 08-01-2024 Monocytes/100 WBC (Bld) Automated monocyte % [facility] Neutrophils Auto (Bld) [#/Vo l]on 08-01-2024 Neutrophils (Bld) [#/Vol] Neutrophils [#/volume] in Blood by Automated count 1.45-7.50 [facility] Neutrophils/100 WBC Auto (Bl d)on 08-01-2024 Neutrophils/100 WBC (Bld) Automated neutrophil % [facility] No Panel Informationon 08-01 Estimated GFR (CKD-EPI) 90 mL/min/1.73m??? >=60 [facility] [facility] Comment on [...] GFR. Prostate Specific Antigen 0.19 ng/mL <2.60 [facility] Comment on above: Total PSA test metho dology used is the Electrochemiluminescence Immunoassay by [employer]. Total PSA values by differing methodologies cannot be interchanged. Nucleated RBC Auto (Bld) [#/ Vol]on 08-01-2024 Nucleated RBC (Bld) [#/Vol] Nucleated erythrocytes [#/volume] in Blood by Automated count <0.01 [facility] Nucleated erythrocytes [Pres ence] in Blood by Automated counton 08-01-2024 Nucleated RBC Auto Ql (Bld) Nucleated erythrocytes [Presence] in Blood by Automated count [facility] PROSTATE-SPECIFIC ANTIGEN DI AGNOSTICon 08-01-2024 Prostate specific Ag [Mass/Vol] 0.19 ng/mL NINF - 2.60 ng/mL Comment on above: Total PSA test metho dology used is the Electrochemiluminescence Immunoassay by [employer]. Total PSA values by differing methodologies cannot be interchanged. PSA SerPl-mCncon 08-01-2024 Prostate specific Ag [Mass/Vol] 0.19 ng/mL Normal <2.60 [facility] Comment on above: Order Comment: Speci men Type: BLOOD SPECIMEN Ordering Facility: [facility] Address: [address] [place] [address] Result Comment: Tota l PSA test methodology used is the Electrochemiluminescence Immunoassay by [employer]. Total PSA values by differing methodologies cannot be interchanged. Performed By: #### 2 857-1 #### [facility] CLIA [id number] [address] [place] [address] [place] Platelet mean volume Auto (B ld) [Entitic vol]on 08-01-2024 Platelet mean volume (Bld) [Entitic vol] Platelet mean volume [Entitic volume] in Blood by Automated count 9.0-12.7 [facility] Platelets Auto (Bld) [#/Vol] on 08-01-2024 Platelets (Bld) [#/Vol] Platelets [#/volume] in Blood by Automated count 150-400 [facility] Prostate specific Ag [Mass/V ol]on 08-01-2024 Interpretation and review of laboratory results Normal [facility] Protein [Mass/volume] in Ser um or Plasmaon 08-01-2024 Protein [Mass/Vol] Protein [Mass/volume ] in Serum or Plasma 6.3-8.0 [facility] RBC Auto (Bld) [#/Vol]on RBC (Bld) [#/Vol] Erythrocytes [#/volu me] in Blood by Automated count Low 4.20-6.00 [facility] Serum or plasma anion gap de terminationon 08-01-2024 Anion gap [Moles/Vol] Serum or plasma anion gap determination 8-15 [facility] CNPNon 07-25-2024 ALEXAN Telephone (ALBERTO) PABLO FELIX ([id number]) 1945 M Date Time Provider Department 07/25/24 [...] Date Reviewed: 02/02/2024 Reviewed by: Lynne Alarcon APRN.BUSINESS DEVELOPMENT REPRESENTATIVE - Fully Assessed Reason for Visit: Lab Orders [4588] Primary Visit Diagnosis:Malignant neoplasm of prostate (HCC) [C61] Order(s):COMPLETE BLOOD COUNT AND DIFFERENTIAL [SQCBCDIF] Order #: [id number] FUTURE COMPREHENSIVE METABOLIC PANEL [SQCMP] Order #: [id number] FUTURE PROSTATE-SPECIFIC ANTIGEN DIAGNOSTIC [SQPSA] Order #: [id number] FUTURE Prescriptions as of 10/16/2024 - enzalutamide (XTANDI) 40 mg tablet Take 4 tablets (160 mg) by mouth once daily. - Calcium Citrate-Vitamin D3 200 mg-6.25 mcg (250 unit) tab Take 2 tablets by mouth once daily. - metoprolol succinate ER (TOPROL XL) 25 mg 24 hr tablet Take by mouth. - Pprzkpdgldrou-Znnqjeuh-Ulej in (MULTIVITAMIN 50 PLUS) tab Take 1 [...] Encounter Status:Closed by JOSEMANUEL BLANCHARD on 10/16/24 [facility] CNOVSPon 05-09-2024 [facility] Visit (SP) Office (H EMASA) PABLO FELIX ([id number]) 1945 M Date Time Provider Department 05/09/24 9:15 AM MARCO A ESQUEDA During your visit today, we recorded the following information about you: Temperature Pulse Respiration Blood pressure 97.3 degrees 62/minute 16/minute 141/62 Weight 92.1 kg Marco A Esqueda MD 05/10/2024 7:40 AM Signed PATIENT NAME: Pablo Felix DATE: 05/09/2024 PRIMARY CARE PHYSICIAN: Dr. Jamar Fall OTHER PHYSICIANS: Dr. Anthony Scruggs, Dr. Khan, [facility] Cardiology Portions of this [...] mg 24 hr tablet Take by mouth. 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 Left base margin positive for neoplasm. Seminal vesicles with no diagnostic abnormality. 2 resected lymph nodes negative for neoplasm. LABS: Hemoglobin (g/dL) Date Value 05/03/2024 11.5 05/08/2018 12.8 Hematocrit (%) Date Value 05/03/2024 33.2 05/08/2018 36.8 WBC (k/uL) Date Value 1 (more content not included)... Normal [facility] CBC W Auto Differential pane l (Bld)on 05-03-2024 Basophils (Bld) [#/Vol] 0.03 10*3/uL Normal <0.11 [facility] Comment on above: Order Comment: Speci men Type: BLOOD SPECIMEN Ordering Facility: [facility] Address: [address] [place] [address] Performed By: #### 5 7021-8 #### [facility] CLIA [id number] [address] [place] [address] 80653 Basophils/100 WBC (Bld) 0.5 % Normal [facility] Comment on above: Order Comment: Speci men Type: BLOOD SPECIMEN Ordering Facility: [facility] Address: [address] [place] [address] Performed By: #### 5 7021-8 #### [facility] CLIA [id number] [address] [place] [address] 21174 Differential cell count method Nom (Bld) Auto Normal [facility] Comment on above: Order Comment: Speci men Type: BLOOD SPECIMEN Ordering Facility: [facility] Address: [address] [place] [address] Performed By: #### 5 7021-8 #### [facility] CLIA [id number] [address] [place] [address] 48030 Eosinophils (Bld) [#/Vol] 0.48 10*3/uL High <0.46 [facility] Comment on above: Order Comment: Speci men Type: BLOOD SPECIMEN Ordering Facility: [facility] Address: [address] [place] [address] Performed By: #### 5 7021-8 #### [facility] CLIA [id number] [address] [place] [address] 18051 Eosinophils/100 WBC (Bld) 8.0 % Normal [facility] Comment on above: Order Comment: Speci men Type: BLOOD SPECIMEN Ordering Facility: [facility] Address: [address] [place] [address] Performed By: #### 5 7021-8 #### [facility] CLIA [id number] [address] [place] [address] 24947 Erythrocyte distribution width (RBC) [Ratio] 12.6 % Normal 11.5-15.0 [facility] Comment on above: Order Comment: Speci men Type: BLOOD SPECIMEN Ordering Facility: [facility] Address: [address] [place] [address] Performed By: #### 5 7021-8 #### [facility] CLIA [id number] [address] [place] [address] 80532 Hematocrit (Bld) [Volume fraction] 33.2 % Low 39.0-51.0 [facility] Comment on above: Order Comment: Speci men Type: BLOOD SPECIMEN Ordering Facility: [facility] Address: [address] [place] [address] Performed By: #### 5 7021-8 #### [facility] CLIA [id number] [address] [place] [address] 64375 Hemoglobin (Bld) [Mass/Vol] 11.5 g/dL Low 13.0-17.0 [facility] Comment on above: Order Comment: Speci men Type: BLOOD SPECIMEN Ordering Facility: [facility] Address: [address] [place] [address] Performed By: #### 5 7021-8 #### [facility] CLIA [id number] [address] [place] [address] Immature granulocytes (Bld) [#/Vol] 0.04 10*3/uL Normal <0.10 [facility] Comment on above: Order Comment: Speci men Type: BLOOD SPECIMEN Ordering Facility: [facility] Address: [address] [place] [address] Performed By: #### 5 7021-8 #### [facility] CLIA [id number] [address] [place] [address] 76804 Immature granulocytes/100 WBC (Bld) 0.7 % Normal [facility] Comment on above: Order Comment: Speci men Type: BLOOD SPECIMEN Ordering Facility: [facility] Address: [address] [place] [address] Performed By: #### 5 7021-8 #### [facility] CLIA [id number] [address] [place] [address] 25409 Lymphocytes (Bld) [#/Vol] 1.76 10*3/uL Normal 1.00-4.00 [facility] Comment on above: Order Comment: Speci men Type: BLOOD SPECIMEN Ordering Facility: [facility] Address: [address] [place] [address] Performed By: #### 5 7021-8 #### [facility] CLIA [id number] [address] [place] [address] 65668 Lymphocytes/100 WBC (Bld) 29.4 % Normal [facility] Comment on above: Order Comment: Speci men Type: BLOOD SPECIMEN Ordering Facility: [facility] Address: [address] [place] [address] Performed By: #### 5 7021-8 #### [facility] CLIA [id number] [address] [place] [address] 92417 MCH (RBC) [Entitic mass] 33.0 pg Normal 26.0-34.0 [facility] Comment on above: Order Comment: Speci men Type: BLOOD SPECIMEN Ordering Facility: [facility] Address: [address] [place] [address] Performed By: #### 5 7021-8 #### [facility] CLIA [id number] [address] [place] [address] 71485 MCHC (RBC) [Mass/Vol] 34.6 g/dL Normal 30.5-36.0 [facility] Comment on above: Order Comment: Speci men Type: BLOOD SPECIMEN Ordering Facility: [facility] Address: [address] [place] [address] Performed By: #### 5 7021-8 #### [facility] CLIA [id number] [address] [place] [address] 22656 MCV (RBC) [Entitic vol] 95.1 fL Normal 80.0-100.0 [facility] Comment on above: Order Comment: Speci men Type: BLOOD SPECIMEN Ordering Facility: [facility] Address: [address] [place] [address] Performed By: #### 5 7021-8 #### [facility] CLIA [id number] [address] [place] [address] 37742 Monocytes (Bld) [#/Vol] 0.48 10*3/uL Normal <0.87 [facility] Comment on above: Order Comment: Speci men Type: BLOOD SPECIMEN Ordering Facility: [facility] Address: [address] [place] [address] Performed By: #### 5 7021-8 #### [facility] CLIA [id number] [address] [place] [address] 62455 Monocytes/100 WBC (Bld) 8.0 % Normal [facility] Comment on above: Order Comment: Speci men Type: BLOOD SPECIMEN Ordering Facility: [facility] Address: [address] [place] [address] Performed By: #### 5 7021-8 #### [facility] CLIA [id number] [address] [place] [address] 18144 Neutrophils (Bld) [#/Vol] 3.19 10*3/uL Normal 1.45-7.50 [facility] Comment on above: Order Comment: Speci men Type: BLOOD SPECIMEN Ordering Facility: [facility] Address: [address] [place] [address] Performed By: #### 5 7021-8 #### [facility] CLIA [id number] [address] [place] [address] 53277 Neutrophils/100 WBC (Bld) 53.4 % Normal [facility] Comment on above: Order Comment: Speci men Type: BLOOD SPECIMEN Ordering Facility: [facility] Address: [address] [place] [address] Performed By: #### 5 7021-8 #### [facility] CLIA [id number] [address] [place] [address] 67398 Nucleated RBC (Bld) [#/Vol] 10*3/uL Normal <0.01 [facility] Comment on above: Order Comment: Speci men Type: BLOOD SPECIMEN Ordering Facility: [facility] Address: [address] [place] [address] Performed By: #### 5 7021-8 #### [facility] CLIA [id number] [address] [place] [address] 29752 Nucleated RBC/100 WBC (Bld) [Ratio] 0.0 /100 WBC Normal [facility] Comment on above: Order Comment: Speci men Type: BLOOD SPECIMEN Ordering Facility: [facility] Address: [address] [place] [address] Performed By: #### 5 7021-8 #### [facility] CLIA [id number] [address] [place] [address] 81157 Platelet mean volume (Bld) [Entitic vol] 9.3 fL Normal 9.0-12.7 [facility] Comment on above: Order Comment: Speci men Type: BLOOD SPECIMEN Ordering Facility: [facility] Address: [address] [place] [address] Performed By: #### 5 7021-8 #### [facility] CLIA [id number] [address] [place] [address] Platelets (Bld) [#/Vol] 192 10*3/uL Normal 150-400 [facility] Comment on above: Order Comment: Speci men Type: BLOOD SPECIMEN Ordering Facility: [facility] Address: [address] [place] [address] Performed By: #### 5 7021-8 #### [facility] CLIA [id number] [address] [place] [address] 71326 RBC (Bld) [#/Vol] 3.49 10*6/uL Low 4.20-6.00 [facility] Comment on above: Order Comment: Speci men Type: BLOOD SPECIMEN Ordering Facility: [facility] Address: [address] [place] [address] Performed By: #### 5 7021-8 #### [facility] CLIA [id number] [address] [place] [address] 49308 WBC (Bld) [#/Vol] 5.98 10*3/uL Normal 3.70-11.00 [facility] Comment on above: Order Comment: Speci men Type: BLOOD SPECIMEN Ordering Facility: [facility] Address: [address] [place] [address] Performed By: #### 5 7021-8 #### [facility] CLIA [id number] [address] [place] [address] 42570 Comprehensive metabolic 2000 panelon 05-03-2024 Albumin [Mass/Vol] 3.9 g/dL Normal 3.9-4.9 [facility] Comment on above: Order Comment: Speci men Type: BLOOD SPECIMEN Ordering Facility: [facility] Address: [address] [place] [address] Performed By: #### 2 857-1 #### [facility] CLIA [id number] [address] [place] [address] [id number], [place] [address] [place] ALP [Catalytic activity/Vol] 71 U/L Normal 38-113 [facility] Comment on above: Order Comment: Speci men Type: BLOOD SPECIMEN Ordering Facility: [facility] Address: [address] [place] [id number] Performed By: #### 2 857-1 #### [facility] CLIA [id number] [address] [place] [address] [place] ALT [Catalytic activity/Vol] 16 U/L Normal 10-54 [facility] Comment on above: Order Comment: Speci men Type: BLOOD SPECIMEN Ordering Facility: [facility] Address: [address] [place] [address] Performed By: #### 2 857-1 #### [facility] CLIA [id number] [address] [place] [address] [place] Anion gap [Moles/Vol] 9 mmol/L Normal 8-15 [facility] Comment on above: Order Comment: Speci men Type: BLOOD SPECIMEN Ordering Facility: [facility] Address: [address] [place] [address] Performed By: #### 2 857-1 #### [facility] CLIA [id number] [address] [place] [address] [place] AST [Catalytic activity/Vol] 17 U/L Normal 14-40 [facility] Comment on above: Order Comment: Speci men Type: BLOOD SPECIMEN Ordering Facility: [facility] Address: [address] [place] [id number] Performed By: #### 2 857-1 #### [facility] CLIA [id number] [address] [place] [address] [place] Bilirubin [Mass/Vol] 0.5 mg/dL Normal 0.2-1.3 [facility] Comment on above: Order Comment: Speci men Type: BLOOD SPECIMEN Ordering Facility: [facility] Address: [address] [place], [place] [address] Performed By: #### 2 857-1 #### [facility] CLIA [id number] [address] [place] [address] [place] Calcium [Mass/Vol] 9.5 mg/dL Normal 8.5-10.2 [facility] Comment on above: Order Comment: Speci men Type: BLOOD SPECIMEN Ordering Facility: [facility] Address: [address] [place] [address] Performed By: #### 2 857-1 #### [facility] CLIA [id number] [address] [place] [address] [place] Chloride [Moles/Vol] 104 mmol/L Normal 98-107 [facility] Comment on above: Order Comment: Speci men Type: BLOOD SPECIMEN Ordering Facility: [facility] Address: [address] [place] [address] Performed By: #### 2 857-1 #### [facility] CLIA [id number] [address] [place] [address] [place] CO2 [Moles/Vol] 26 mmol/L Normal 22-30 [facility] Comment on above: Order Comment: Speci men Type: BLOOD SPECIMEN Ordering Facility: [facility] Address: [address] [place] [address] Performed By: #### 2 857-1 #### [facility] CLIA [id number] [address] [place] [address] [place] Creatinine [Mass/Vol] 0.88 mg/dL Normal 0.73-1.22 [facility] Comment on above: Order Comment: Speci men Type: BLOOD SPECIMEN Ordering Facility: [facility] Address: [address] [place] [address] Performed By: #### 2 857-1 #### [facility] CLIA [id number] [address] [place] [address] [place] Creatinine and Glomerular filtration rate.predicted panel (S/P/Bld) 88 mL/min/1.73m??? Normal >=60 [facility] Comment on above: Order Comment: Speci men Type: BLOOD SPECIMEN Ordering Facility: [facility] Address: [address] [place] [address] Result Comment: Renae mated Glomerular Filtration Rate [...] GFR. Performed By: #### 2 857-1 #### [facility] CLIA [id number] [address] [place] [address] [place] Glucose [Mass/Vol] 106 mg/dL High 74-99 [facility] Comment on above: Order Comment: Nicanor camilo Type: BLOOD SPECIMEN Ordering Facility: [facility] Address: [address] [place] [address] Result Comment: The [place] Diabetes Association (ADA) provides guidance for cutoff [...] Standards of Medical Care in Diabetes 2016, [place] [employer]. Diabetes Care. 2016.39(Suppl 1). Performed By: #### 2 857-1 #### [facility] CLIA [id number] [address] [place] [address] [place] Potassium [Moles/Vol] 5.6 mmol/L High 3.7-5.1 [facility] Comment on above: Order Comment: Nicanor camilo Type: BLOOD SPECIMEN Ordering Facility: [facility] Address: [address] [place] [address] Performed By: #### 2 857-1 #### [facility] CLIA [id number] [address] [place] [address] [place] Protein [Mass/Vol] 6.3 g/dL Normal 6.3-8.0 [facility] Comment on above: Order Comment: Speci men Type: BLOOD SPECIMEN Ordering Facility: [facility] Address: [address] [place] [address] Performed By: #### 2 857-1 #### [facility] CLIA [id number] [address] [place] [address] [place] Sodium [Moles/Vol] 139 mmol/L Normal 136-144 [facility] Comment on above: Order Comment: Speci men Type: BLOOD SPECIMEN Ordering Facility: [facility] Address: [address] [place] [address] Performed By: #### 2 857-1 #### [facility] CLIA [id number] [address] [place] [address] [place] Urea nitrogen [Mass/Vol] 19 mg/dL Normal 9-24 [facility] Comment on above: Order Comment: Speci men Type: BLOOD SPECIMEN Ordering Facility: [facility] Address: [address] [place] [address] Performed By: #### 2 857-1 #### [facility] CLIA [id number] [address] [place] [address] [place] PSA [facility] Prostate specific Ag [Mass/Vol] 0.18 ng/mL Normal <2.60 [facility] Comment on above: Order Comment: Speci men Type: BLOOD SPECIMEN Ordering Facility: [facility] Address: [address] [place] [address] Result Comment: Tota l PSA test methodology used is the Electrochemiluminescence Immunoassay by [employer]. Total PSA values by differing methodologies cannot be interchanged. Performed By: #### 2 857-1 #### [facility] CLIA [id number] [facility] DESK [id number] [place] [address] [place] [facility] Ambulatory Visit Summaryon 1 Ambulatory Visit Summary [...] mg Tab) ipratropium nasal (ipratropium Nasal 0.06% [facility]) metformin (metformin 1000 mg oral tablet) metoprolol [...] Anthony SCRUGGS MD Where: [facility] [address] [place] [address]- You Need to Schedule the Following Appointments Follow Up with Anthony SCRUGGS MD, URL When: Where: [address] [place] [address]- Medications What How Much When Instructions Unchanged [...] concerns Unchanged ipratropium nasal (ipratropium Nasal 0.06% [facility]) Contact prescribing physician if questions or concerns [...] Trouble st (more content not included)... 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 [place] 9 (5+4), pT2b, N0, Mo. Last Lupron administered 04/2022. Taking Xtandi 160mg qd and Xgeva q3mos. Last seen by oncology 02/02/24. Plan at that time was [...] Contact Information KAEL JAMES, Anthony Lee, URL [facility] [place] [address]- Additional Instructions: 6 mos w/ PSA and [...] hydrochlorothiazide-lisinop ril (more content not included)... Normal [facility] Comment on above: Result Comment: Elec tronically Signed By: Anthony SCRUGGS MD\.br\Date and Time Signed: 04/19/24 08:47 EDT\.br\Electronically Co-Signed By: Olamide Ureña.br\Date and Time Co-Signed: 04/19/24 08:45 EDT Office Visiton 03-29-2024 Follow-up visit [id number] Pablo Felix 1945 M Date Provider Department Center 03/29/2024 120-[facility] Family History Problem Relation Age of Onset Coronary artery disease Father Family Status - Relation Status Age at Father Level of Service:56474 NC OFFICE/OUTPATIENT ESTABLISHED MOD MDM 30 MIN Normal [facility] CNOVSPon 02-02-2024 CNOVSP Visit (SP) Office (H EMASA) PABLO FELIX ([id number]) 1945 M Date Time Provider Department 02/02/24 11:30 AM LYNNE ALARCON During your visit today, we recorded the following information about you: Temperature Pulse Respiration Blood pressure 97.3 degrees 52/minute 16/minute 137/54 Weight Height 93.7 kg 1.676 m Lynne Alarcon APRN.BUSINESS DEVELOPMENT REPRESENTATIVE 02/02/2024 11:37 AM Signed PATIENT NAME: Pablo Felix DATE: February 02, 2024 PRIMARY CARE PHYSICIAN: Dr. Jamar Fall OTHER PHYSICIANS: Dr. Anthony Scruggs, Dr. Khan, [facility] Cardiology This note was [...] mg 24 hr tablet Take by mouth. 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 Left base margin positive for neoplasm. Seminal vesicles with no diagnostic abnormality. 2 resected lymph nodes negative for neoplasm. LABS: Hemoglobin (g/dL) Date Va (more content not included)... Normal [facility] Basophils Auto (Bld) [#/Vol] on 01-25-2024 Basophils (Bld) [#/Vol] 0.04 10*3/uL <0.11 [facility] Basophils/100 WBC Auto (Bld) on 01-25-2024 Basophils/100 WBC (Bld) 0.6 % [facility] Blood manual differential co mment interpretation narrativeon 01-25-2024 Manual differential comment [place] (Bld) [Interp] Auto [facility] CBC W Auto Differential pane l (Bld)on 01-25-2024 Basophils (Bld) [#/Vol] 0.04 10*3/uL Normal <0.11 [facility] Comment on above: Order Comment: Speci men Type: BLOOD SPECIMEN [facility] [facility] Address: [address] [place] [address] Performed By: #### 2 857-1 #### [facility] CLIA [id number] [address] [place] [address] [place] [address] [place] Basophils/100 WBC (Bld) 0.6 % Normal [facility] Comment on above: Order Comment: Speci men Type: BLOOD SPECIMEN Ordering Facility: [facility] Address: [address] [place] [address] Performed By: #### 2 857-1 #### [facility] CLIA [id number] [address] [place] [address] [place] Differential cell count method Nom (Bld) Auto Normal [facility] Comment on above: Order Comment: Speci men Type: BLOOD SPECIMEN Ordering Facility: [facility] Address: [address] [place] [address] Performed By: #### 2 857-1 #### [facility] CLIA [id number] [address] [place] [address] [place] Eosinophils (Bld) [#/Vol] 0.40 10*3/uL Normal <0.46 [facility] Comment on above: Order Comment: Speci men Type: BLOOD SPECIMEN Ordering Facility: [facility] Address: [address] [place] [address] Performed By: #### 2 857-1 #### [facility] CLIA [id number] [address] [place] [address] [place] Eosinophils/100 WBC (Bld) 5.9 % Normal [facility] Comment on above: Order Comment: Speci men Type: BLOOD SPECIMEN Ordering Facility: [facility] Address: [address] [place] [address] Performed By: #### 2 857-1 #### [facility] CLIA [id number] [address] [place] [address] [place] Erythrocyte distribution width (RBC) [Ratio] 12.7 % Normal 11.5-15.0 [facility] Comment on above: Order Comment: Speci men Type: BLOOD SPECIMEN Ordering Facility: [facility] Address: [address] [place] [address] Performed By: #### 2 857-1 #### [facility] CLIA [id number] [address] [place] [address] [place] Hematocrit (Bld) [Volume fraction] 34.6 % Low 39.0-51.0 [facility] Comment on above: Order Comment: Speci men Type: BLOOD SPECIMEN Ordering Facility: [facility] Address: [address] [place] [address] Performed By: #### 2 857-1 #### [facility] CLIA [id number] [address] [place] [address] [place] Hemoglobin (Bld) [Mass/Vol] 11.8 g/dL Low 13.0-17.0 [facility] Comment on above: Order Comment: Speci men Type: BLOOD SPECIMEN Ordering Facility: [facility] Address: [address] [place] [address] Performed By: #### 2 857-1 #### [facility] CLIA [id number] [address] [place] [address] [place] Immature granulocytes (Bld) [#/Vol] 0.07 10*3/uL Normal <0.10 [facility] Comment on above: Order Comment: Speci men Type: BLOOD SPECIMEN Ordering Facility: [facility] Address: [address] [place] [address] Performed By: #### 2 857-1 #### [facility] CLIA [id number] [address] [place] [address] [place] Immature granulocytes/100 WBC (Bld) 1.0 % Normal [facility] Comment on above: Order Comment: Speci men Type: BLOOD SPECIMEN Ordering Facility: [facility] Address: [address] [place] [address] Performed By: #### 2 857-1 #### [facility] CLIA [id number] [address] [place] [address] [place] Lymphocytes (Bld) [#/Vol] 2.16 10*3/uL Normal 1.00-4.00 [facility] Comment on above: Order Comment: Speci men Type: BLOOD SPECIMEN Ordering Facility: [facility] Address: [address] [place] [address] Performed By: #### 2 857-1 #### [facility] CLIA [id number] [address] [place] [address] [place] Lymphocytes/100 WBC (Bld) 31.8 % Normal [facility] Comment on above: Order Comment: Speci men Type: BLOOD SPECIMEN Ordering Facility: [facility] Address: [address] [place] [address] Performed By: #### 2 857-1 #### [facility] CLIA [id number] [address] [place] [address] [place] MCH (RBC) [Entitic mass] 32.2 pg Normal 26.0-34.0 [facility] Comment on above: Order Comment: Speci men Type: BLOOD SPECIMEN Ordering Facility: [facility] Address: [address] [place] [address] Performed By: #### 2 857-1 #### [facility] CLIA [id number] [address] [place] [address] [place] MCHC (RBC) [Mass/Vol] 34.1 g/dL Normal 30.5-36.0 [facility] Comment on above: Order Comment: Speci men Type: BLOOD SPECIMEN Ordering Facility: [facility] Address: [address] [place] [address] Performed By: #### 2 857-1 #### [facility] CLIA [id number] [address] [place] [address] [place] MCV (RBC) [Entitic vol] 94.3 fL Normal 80.0-100.0 [facility] Comment on above: Order Comment: Speci men Type: BLOOD SPECIMEN Ordering Facility: [facility] Address: [address] [place] [address] Performed By: #### 2 857-1 #### [facility] CLIA [id number] [address] [place] [address] [place] Monocytes (Bld) [#/Vol] 0.60 10*3/uL Normal <0.87 [facility] Comment on above: Order Comment: Speci men Type: BLOOD SPECIMEN Ordering Facility: [facility] Address: [address] [place] [address] Performed By: #### 2 857-1 #### [facility] CLIA [id number] [address] [place] [address] [place] Monocytes/100 WBC (Bld) 8.8 % Normal [facility] Comment on above: Order Comment: Speci men Type: BLOOD SPECIMEN Ordering Facility: [facility] Address: [address] [place] [address] Performed By: #### 2 857-1 #### [facility] CLIA [id number] [address] [place] [address] [place] Neutrophils (Bld) [#/Vol] 3.53 10*3/uL Normal 1.45-7.50 [facility] Comment on above: Order Comment: Speci men Type: BLOOD SPECIMEN Ordering Facility: [facility] Address: [address] [place] [address] Performed By: #### 2 857-1 #### [facility] CLIA [id number] [address] [place] [address] [place] Neutrophils/100 WBC (Bld) 51.9 % Normal [facility] Comment on above: Order Comment: Speci men Type: BLOOD SPECIMEN Ordering Facility: [facility] Address: [address] [place] [address] Performed By: #### 2 857-1 #### [facility] CLIA [id number] [address] [place] [address] [place] Nucleated RBC (Bld) [#/Vol] 10*3/uL Normal <0.01 [facility] Comment on above: Order Comment: Speci men Type: BLOOD SPECIMEN Ordering Facility: [facility] Address: [address] [place] [address] Performed By: #### 2 857-1 #### [facility] CLIA [id number] [address] [place] [address] [place] Nucleated RBC/100 WBC (Bld) [Ratio] 0.0 /100 WBC Normal [facility] Comment on above: Order Comment: Speci men Type: BLOOD SPECIMEN Ordering Facility: [facility] Address: [address] [place] [address] Performed By: #### 2 857-1 #### [facility] CLIA [id number] [address] [place] [address] [place] Platelet mean volume (Bld) [Entitic vol] 10.3 fL Normal 9.0-12.7 [facility] Comment on above: Order Comment: Speci men Type: BLOOD SPECIMEN Ordering Facility: [facility] Address: [address] [place] [address] Performed By: #### 2 857-1 #### [facility] CLIA [id number] [address] [place] [address] [place] Platelets (Bld) [#/Vol] 184 10*3/uL Normal 150-400 [facility] Comment on above: Order Comment: Speci men Type: BLOOD SPECIMEN Ordering Facility: [facility] Address: [address] [place] [address] Performed By: #### 2 857-1 #### [facility] CLIA [id number] [address] [place] [address] [place] RBC (Bld) [#/Vol] 3.67 10*6/uL Low 4.20-6.00 [facility] Comment on above: Order Comment: Speci men Type: BLOOD SPECIMEN Ordering Facility: [facility] Address: [address] [place] [address] Performed By: #### 2 857-1 #### [facility] CLIA [id number] [address] [place] [address] [place] WBC (Bld) [#/Vol] 6.80 10*3/uL Normal 3.70-11.00 [facility] Comment on above: Order Comment: Speci men Type: BLOOD SPECIMEN Ordering Facility: [facility] Address: [address] [place] [address] Performed By: #### 2 857-1 #### [facility] CLIA [id number] [address] [place] [address] [place] Comprehensive metabolic 2000 panelon 01-25-2024 Albumin [Mass/Vol] 4.0 g/dL Normal 3.9-4.9 [facility] Comment on above: Order Comment: Speci men Type: BLOOD SPECIMEN Ordering Facility: [facility] Address: [address] [place] [address] Performed By: #### 2 857-1 #### [facility] CLIA [id number] [address] [place] [address] [place] ALP [Catalytic activity/Vol] 74 U/L Normal 38-113 [facility] Comment on above: Order Comment: Speci men Type: BLOOD SPECIMEN Ordering Facility: [facility] Address: [address] [place] [address] Performed By: #### 2 857-1 #### [facility] CLIA [id number] [address] [place] [address] [place] ALT [Catalytic activity/Vol] 18 U/L Normal 10-54 [facility] Comment on above: Order Comment: Speci men Type: BLOOD SPECIMEN Ordering Facility: [facility] Address: [address] [place] [address] Performed By: #### 2 857-1 #### [facility] CLIA [id number] [address] [place] [address] [place] Anion gap [Moles/Vol] 9 mmol/L Normal 8-15 [facility] Comment on above: Order Comment: Speci men Type: BLOOD SPECIMEN Ordering Facility: [facility] Address: [address] [place] [address] Performed By: #### 2 857-1 #### [facility] CLIA [id number] [address] [place] [address] [place] AST [Catalytic activity/Vol] 19 U/L Normal 14-40 [facility] Comment on above: Order Comment: Speci men Type: BLOOD SPECIMEN Ordering Facility: [facility] Address: [address] [place] [address] Performed By: #### 2 857-1 #### [facility] CLIA [id number] [address] [place] [address] [place] Bilirubin [Mass/Vol] 0.7 mg/dL Normal 0.2-1.3 [facility] Comment on above: Order Comment: Speci men Type: BLOOD SPECIMEN Ordering Facility: [facility] Address: [address] [place] [address] Performed By: #### 2 857-1 #### [facility] CLIA [id number] [address] [place] [address] [place] Calcium [Mass/Vol] 9.9 mg/dL Normal 8.5-10.2 [facility] Comment on above: Order Comment: Speci men Type: BLOOD SPECIMEN Ordering Facility: [facility] Address: [address] [place] [address] Performed By: #### 2 857-1 #### [facility] CLIA [id number] [address] [place] [address] [place] Chloride [Moles/Vol] 103 mmol/L Normal 98-107 [facility] Comment on above: Order Comment: Speci men Type: BLOOD SPECIMEN Ordering Facility: [facility] Address: [address] [place] [address] Performed By: #### 2 857-1 #### [facility] CLIA [id number] [address] [place] [address] [place] CO2 [Moles/Vol] 25 mmol/L Normal 22-30 [facility] Comment on above: Order Comment: Speci men Type: BLOOD SPECIMEN Ordering Facility: [facility] Address: [address] [place] [address] Performed By: #### 2 857-1 #### [facility] CLIA [id number] [address] [place] [address] [place] Creatinine [Mass/Vol] 0.79 mg/dL Normal 0.73-1.22 [facility] Comment on above: Order Comment: Speci men Type: BLOOD SPECIMEN Ordering Facility: [facility] Address: [address] [place] [address] Performed By: #### 2 857-1 #### [facility] CLIA [id number] [address] [place] [address] [place] Creatinine and Glomerular filtration rate.predicted panel (S/P/Bld) 91 mL/min/1.73m??? Normal >=60 [facility] Comment on above: Order Comment: Speci men Type: BLOOD SPECIMEN Ordering Facility: [facility] Address: [address] [place] [address] Result Comment: Renae mated Glomerular Filtration Rate [...] GFR. Performed By: #### 2 857-1 #### [facility] CLIA [id number] [address] [place] [address] [place] Glucose [Mass/Vol] 112 mg/dL High 74-99 [facility] Comment on above: Order Comment: Francii ton Type: BLOOD SPECIMEN Ordering Facility: [facility] Address: [address] [place] [address] Result Comment: The [place] Diabetes Association (ADA) provides guidance for cutoff [...] Standards of Medical Care in Diabetes 2016, [place] [employer]. Diabetes Care. 2016.39(Suppl 1). Performed By: #### 2 857-1 #### [facility] CLIA [id number] [address] [place] [address] [place] Potassium [Moles/Vol] 5.2 mmol/L High 3.7-5.1 [facility] Comment on above: Order Comment: Nicanor men Type: BLOOD SPECIMEN Ordering Facility: [facility] Address: [address] [place] [address] Performed By: #### 2 857-1 #### [facility] CLIA [id number] [address] [place] [address] [place] Protein [Mass/Vol] 6.6 g/dL Normal 6.3-8.0 [facility] Comment on above: Order Comment: Francii men Type: BLOOD SPECIMEN Ordering Facility: [facility] Address: [address] [place] [address] Performed By: #### 2 857-1 #### [facility] CLIA [id number] [address] [place] [address] [place] Sodium [Moles/Vol] 137 mmol/L Normal 136-144 [facility] Comment on above: Order Comment: Speci men Type: BLOOD SPECIMEN Ordering Facility: [facility] Address: [address] [place] [address] Performed By: #### 2 857-1 #### [facility] CLIA [id number] [address] [place] [address] [place] Urea nitrogen [Mass/Vol] 15 mg/dL Normal 9-24 [facility] Comment on above: Order Comment: Speci men Type: BLOOD SPECIMEN Ordering Facility: [facility] Address: [address] [place] [address] Performed By: #### 2 857-1 #### [facility] CLIA [id number] [address] [place] [address] [place] Eosinophils/100 WBC Auto [...] challengeon 01-25-2024 Albumin [Mass/Vol] 4.0 g/dL 3.9-4.9 [facility] ALP [Catalytic activity/Vol] 74 U/L 38-113 [facility] ALT [Catalytic activity/Vol] 18 U/L 10-54 [facility] AST [Catalytic activity/Vol] 19 U/L 14-40 [facility] Bilirubin [Mass/Vol] 0.7 mg/dL 0.2-1.3 [facility] Calcium [Mass/Vol] 9.9 mg/dL 8.5-10.2 [facility] Chloride [Moles/Vol] 103 mmol/L 98-107 [facility] CO2 [Moles/Vol] 25 mmol/L 22-30 [facility] Creatinine [Mass/Vol] 0.79 mg/dL 0.73-1.22 [facility] Glucose [Mass/Vol] 112 mg/dL High 74-99 [facility] Comment on above: The [place] Diab[employer] s Association (ADA) provides guidance for [...] Standards of Medical Care in Diabetes 2016, [place] [employer]. Diabetes Care. 2016.39(Suppl 1). Potassium [Moles/Vol] 5.2 mmol/L High 3.7-5.1 [facility] Sodium [Moles/Vol] 137 mmol/L 136-144 [facility] Urea nitrogen [Mass/Vol] 15 mg/dL 9- [facility] - Hematology and [...] specific Ag [Mass/Vol] 0.15 ng/mL Normal <2.60 [facility] Comment on above: Order Comment: Speci men Type: BLOOD SPECIMEN Ordering Facility: [facility] Address: [address] [place] [address] Result Comment: Tota l PSA test methodology used is the Electrochemiluminescence Immunoassay by [employer]. Total PSA values by differing methodologies cannot be interchanged. Performed By: #### 2 857-1 #### [facility] CLIA [id number] [address] [place] [address] [place] Platelet mean volume Auto (B ld) [Entitic vol]on 01-25-2024 Platelet mean volume (Bld) [Entitic vol] 10.3 fL 9.0-12.7 [facility] Platelets Auto (Bld) [#/Vol] on 01-25-2024 Platelets (Bld) [#/Vol] 184 10*3/uL 150-400 [facility] Protein [Mass/volume] in Ser um or Plasmaon 01-25-2024 Protein [Mass/Vol] 6.6 g/dL 6.3-8.0 [facility] RBC Auto (Bld) [#/Vol]on RBC (Bld) [#/Vol] 3.67 10*6/uL Low 4.20-6.00 [facility] Serum or plasma anion gap de terminationon 01-25-2024 Anion gap [Moles/Vol] 9 mmol/L 8-15 [facility] Consultation Noteon 11-07-19 24 Consultation Note [id number] Normal [facility] Basophils Auto (Bld) [#/Vol] on 10-30-2023 Basophils (Bld) [#/Vol] 0.04 10*3/uL <0.11 [facility] Basophils/100 WBC Auto (Bld) on 10-30-2023 Basophils/100 WBC (Bld) 0.5 % [facility] Blood manual differential co mment interpretation narrativeon 10-30-2023 Manual differential comment [place] (Bld) [Interp] Auto [facility] Eosinophils/100 WBC Auto (Bl d)on 10-30-2023 Eosinophils/100 [...] challengeon 10-30-2023 Albumin [Mass/Vol] 4.1 g/dL 3.9-4.9 [facility] ALP [Catalytic activity/Vol] 75 U/L 38-113 [facility] ALT [Catalytic activity/Vol] 16 U/L 10-54 [facility] AST [Catalytic activity/Vol] 16 U/L 14-40 [facility] Bilirubin [Mass/Vol] 0.7 mg/dL 0.2-1.3 [facility] Calcium [Mass/Vol] 9.8 mg/dL 8.5-10.2 [facility] Chloride [Moles/Vol] 103 mmol/L 97-105 [facility] CO2 [Moles/Vol] 24 mmol/L 22-30 [facility] Creatinine [Mass/Vol] 0.88 mg/dL 0.73-1.22 [facility] Glucose [Mass/Vol] 128 mg/dL 74-99 [facility] Comment on above: The [place] Diabete s Association (ADA) provides guidance for [...] Standards of Medical Care in Diabetes 2016, [place] [employer]. Diabetes Care. 2016.39(Suppl 1). Potassium [Moles/Vol] 4.8 mmol/L 3.7-5.1 [facility] Sodium [Moles/Vol] 140 mmol/L 136-144 [facility] Urea nitrogen [Mass/Vol] 18 mg/dL 9 [facility] - Hematology and [...] be interchanged. Testosterone Level 78 ng/dL 193-824 [facility] Comment on above: A testosterone level in the 193-320 ng/dL range with associated clinical symptoms is considered low and may indicate hypogonadism (from [facility] 2010 363:123-135). Results >320 ng/dL are considered normal.Result rechecked. Nucleated RBC Auto (Bld) [#/ Vol]on 10-30-2023 Nucleated RBC (Bld) [#/Vol] 10*3/uL <0.01 [facility] Nucleated erythrocytes [Pres ence] in Blood by Automated counton 10-30-2023 Nucleated RBC Auto Ql (Bld) 0.0 /100{WBC} [facility] Platelet mean volume Auto (B ld) [Entitic vol]on 10-30-2023 Platelet mean volume (Bld) [Entitic vol] 9.5 fL 9.0-12.7 [facility] Platelets Auto (Bld) [#/Vol] on 10-30-2023 Platelets (Bld) [#/Vol] 192 10*3/uL 150-400 [facility] Protein [Mass/volume] in Ser um or Plasmaon 10-30-2023 Protein [Mass/Vol] 6.5 g/dL 6.3-8.0 [facility] RBC Auto (Bld) [#/Vol]on RBC (Bld) [#/Vol] 3.90 10*6/uL 4.20-6.00 [facility] Serum or plasma anion gap de terminationon 10-30-2023 Anion gap [Moles/Vol] 13 mmol/L 9-18 [facility] Patient Educationon 10-20-19 Patient Education Oncology Prostate [...] external be (more content not included)... Normal [facility] Urology Office/Clinic Noteon 10-20-2023 Urology Office/Clinic Note [...] Information KAEL JAMES, Anthony Lee, URL [address] [id number] Additional Instructions: 6 mos w/ PSA and [...] 1 tab(s), Oral, Daily ipratropium Nasal 0.06% [facility] metformin 1000 mg oral tablet, Oral, BID metoprolol 25 mg ER Tab, 25 mg= 1 tab(s), Oral, BID Vitamin D3 Xtandi 80 mg oral tablet, Oral, Daily Allergies penicillin G benzathine (Unknown) Social History Alcohol Current, 1-2 times per year, 02/04/2019 Tobacco Never (less than 100 in lifetime) Tobacco Use:. Never Smokeless Tobacco Use:. (more content not included)... Normal [facility] Comment on above: Result Comment: Elec tronically Signed By: Anthony SCRUGGS MD\.br\Date and Time Signed: 10/20/23 09:57 EDT\.br\Electronically Co-Signed By: Olamide Ureña\.br\Date and Time Co-Signed: 10/20/23 09:55 EDT No Panel Informationon 10-08 Prostate Specific Antigen Total <0.13 ng/mL <=4.00 [facility] No Panel Informationon 08-28 [facility] Type of biopsy: schmidt [...] of lidocaine used: 0.5 cc [facility] Office Visiton 06-22-2023 Follow-up visit [id number] Pablo Felix 1945 M Date Provider Department Center 06/22/2023 Erika-BRIDGER MULLIGAN [facility] Family History Problem Relation Age of Onset Coronary artery disease Father Family Status - Relation Status Age at Father Level of Service:17112 NC OFFICE/OUTPATIENT ESTABLISHED MOD MDM 30-39 MIN Normal [facility] GLYCOHEMOGLOBIN A1Con 2022 ADA RECOMMENDATION SEE BELOW Normal [facility] Comment on above: Result Comment: ADA RECOMMENDED LIMIT 4.0 - 6.0 ADA THERAPEUTIC TARGET < 7.0 ACTION SUGGESTED > 7.0 Performed By: #### D ATA1C #### [facility] [address] [address] [address] Bharati Aguiar Glucose [Mass/Vol] 131 mg/dL Normal [facility] Comment on above: Performed By: #### D ATA1C #### [facility] [address] [address] [address] Bharati Aguiar HbA1c (Bld) [Mass fraction] 6.2 % Normal 4.5-6.2 [facility] Comment on above: Performed By: #### D ATA1C #### [facility] [address] [address] [address] Bharati Aguiar XR CSPINE OBL FLEX_EXTon [...] by: CYNTHIA TORRES Date: 2022-07-21 15:52 Normal [facility] GLYCOHEMOGLOBIN A1Con 2021 ADA RECOMMENDATION SEE BELOW Normal [facility] Comment on above: Result Comment: ADA RECOMMENDED LIMIT 4.0 - 6.0 ADA THERAPEUTIC TARGET < 7.0 ACTION SUGGESTED > 7.0 Performed By: #### D ATA1C #### [facility] [address] [address] [address] Bharati Aguiar Glucose [Mass/Vol] 134 mg/dL Normal [facility] Comment on above: Performed By: #### D ATA1C #### [facility] [address] [place], [place] [address] Dr. Bharati Aguiar HbA1c (Bld) [Mass fraction] 6.3 % Critically high 4.5-6.2 [facility] Comment on above: Performed By: #### D ATA1C #### [facility] [address] [place], [place] [address] Dr. Bharati Aguiar ECHOCARDIO M/2D COMPLETEon 1 ECHOCARDIO M/2D COMPLETE Patient: PABLO FELIX Exam Date: 04/27/2022 : 1945 Gender:M Ordering : LORA EGNLISH Admission #: [id number] Family : DR JAMAR FALL D.Trang Order #: [id number] CLICK HERE TO VIEW EXAM ECHOCARDIOGRAM REPORT [...] Carreon M.D. on 04/28/2022 at 19:09 Normal [facility] GLYCOHEMOGLOBIN A1Con 2021 ADA RECOMMENDATION SEE BELOW Normal [facility] Comment on above: Result Comment: ADA RECOMMENDED LIMIT 4.0 - 6.0 ADA THERAPEUTIC TARGET < 7.0 ACTION SUGGESTED > 7.0 Performed By: #### D ATA1C ####[facility] [id number] [place], [place] [address]Hl. Bharati Aguiar Glucose [Mass/Vol] 137 mg/dL Normal [facility] Comment on above: Performed By: #### D ATA1C ####[facility] [id number] [place], [place] [address]Kq. Bharati Aguiar HbA1c (Bld) [Mass fraction] 6.4 % Critically high 4.5-6.2 [facility] Comment on above: Performed By: #### D ATA1C ####[facility] [id number] [place], [place] [address]Js. Bharati Aguiar NM BONE SC WH BODYon [...] it was not obviously included in the [id number] of the recent CT. There are foci [...] FEDE DE JESUS Date: 2021-11-06 12:45 Normal [facility] CT CHEST W CONon 11-05-2021 CT [...] LUIZ UMANA Date: 2021-11-05 14:08 Normal [facility] PROF 14(COMP METB)on 022 Albumin [Mass/Vol] 3.6 g/dL Normal 3.4-5.0 [facility] Comment on above: Performed By: #### C MP #### [facility] [address] [place] [address] Dr. Bharati Aguiar Albumin/Globulin [Mass ratio] 1.1 {ratio} Normal [facility] Comment on above: Performed By: #### C MP #### [facility] [address] [place] [address] Dr. Bharati Aguiar ALP [Catalytic activity/Vol] 89 U/L Normal 46-116 [facility] Comment on above: Performed By: #### C MP #### [facility] [address] [place] [address] Dr. Bharati Aguiar ALT [Catalytic activity/Vol] 33 U/L Normal 16-63 [facility] Comment on above: Performed By: #### C MP #### [facility] [address] [place] [address] Dr. Bharati Aguiar Anion gap [Moles/Vol] 12.1 mmol/L Normal [facility] Comment on above: Performed By: #### C MP #### [facility] [address] [place] [address] Dr. Bharati Aguiar AST [Catalytic activity/Vol] 19 U/L Normal 15-37 [facility] Comment on above: Performed By: #### C MP #### [facility] [address] [place] [address] Dr. Bharati Aguiar Bilirubin [Mass/Vol] 0.9 mg/dL Normal 0.2-1.3 [facility] Comment on above: Performed By: #### C MP #### [facility] [address] [place] [address] Dr. Bharati Aguiar Calcium [Mass/Vol] 8.8 mg/dL Normal 8.5-10.1 [facility] Comment on above: Performed By: #### C MP #### [facility] [address] [address] [address] Bharati Aguiar Chloride [Moles/Vol] 103 mmol/L Normal 98-107 [facility] Comment on above: Performed By: #### C MP #### [facility] [address] [address] [address] Bharati Aguiar CO2 [Moles/Vol] 28.6 mmol/L Normal 22.0-30.[address] [facility] Comment on above: Performed By: #### C MP #### [facility] [address] [place] [address] Dr. Bharati Aguiar Creatinine [Mass/Vol] 0.85 mg/dL Normal 0.66-1.25 [facility] Comment on above: Performed By: #### C MP #### [facility] [address] [place] [address] Dr. Bharati Aguiar EGFR-AF CUBAN >60 Normal >=[address] [facility] Comment on above: Performed By: #### C MP #### [facility] [address] [place] [address] Dr. Bharati Aguiar EGFR-NON AF CUBAN >60 Normal >=60 [facility] Comment on above: Performed By: #### C MP #### [facility] [address] [place] [address] Dr. Bharati Aguiar Globulin (S) [Mass/Vol] 3.4 g/dL Normal [facility] Comment on above: Performed By: #### C MP #### [facility] [address] [place] [address] Dr. Bharati Aguiar Glucose [Mass/Vol] 127 mg/dL Critically high 74-106 [facility] Comment on above: Performed By: #### C MP #### [facility] [address] [place] [address] Dr. Bharati Aguiar Potassium [Moles/Vol] 4.7 mmol/L Normal 3.4-5.0 [facility] Comment on above: Performed By: #### C MP #### [facility] [address] [place] [address] Dr. Bharati Aguiar Protein [Mass/Vol] 7.0 g/dL Normal 6.1-8.2 [facility] Comment on above: Performed By: #### C MP #### [facility] [address] [address] [address] Bharati Aguiar Sodium [Moles/Vol] 139 mmol/L Normal 137-145 [facility] Comment on above: Performed By: #### C MP #### [facility] [address] [address] [address] Bharati Aguiar Urea nitrogen [Mass/Vol] 18.0 mg/dL Normal 7.0-18.0 [facility] Comment on above: Performed By: #### C MP #### [facility] [address] [address] [address] Bharati Aguiar Urea nitrogen/Creatinin e [Mass ratio] 21.2 mg/mg Normal [facility] Comment on above: Performed By: #### C MP #### [facility] [address] [address] [address] Bharati Aguiar Vital Signs Date Time Vital Sign Value Performing Clinician Facility 09-02-2024 09:44-0500 Body height 168.91 cm [facility] 09-02-2024 09:44-0500 Body mass index (BMI) [Ratio] 32.4 kg/m2 [facility] 09-02-2024 09:44-0500 Body weight 92.53 kg [facility] 09-02-2024 09:44-0500 Diastolic blood pressure 80 mm[Hg] [facility] 09-02-2024 09:44-0500 Heart rate 46 /min [facility] 09-02-2024 09:44-0500 Respiratory rate 12 /min [facility] 09-02-2024 09:44-0500 Systolic blood pressure 130 mm[Hg] [facility] 08-08-2024 09:07-0500 Body height 167.6 cm Christo Howard APRN.CNP Work Phone: 08-08-2024 09:07-0500 Body mass index (BMI) [Ratio] 33.82 kg/m2 Christo Howard APRN.CNP Work Phone: 08-08-2024 09:07-0500 Body temperature 97.9 [degF] Christo Howard APRN.BUSINESS DEVELOPMENT REPRESENTATIVE Work Phone: 08-08-2024 09:07-0500 Body weight 95 kg Christo Howard APRN.BUSINESS DEVELOPMENT REPRESENTATIVE Work Phone: 08-08-2024 09:07-0500 Diastolic blood pressure 56 mm[Hg] Christo Howard APRN.BUSINESS DEVELOPMENT REPRESENTATIVE Work Phone: 08-08-2024 09:07-0500 Heart rate 57 /min Christo Howard APRN.BUSINESS DEVELOPMENT REPRESENTATIVE Work Phone: 08-08-2024 09:07-0500 Respiratory rate 16 /min Christo Howard APRN.BUSINESS DEVELOPMENT REPRESENTATIVE Work Phone: 08-08-2024 09:07-0500 SaO2% (BldA) [Mass fraction] 99 % Christo Howard APRN.BUSINESS DEVELOPMENT REPRESENTATIVE Work Phone: 08-08-2024 09:07-0500 Systolic blood pressure 149 mm[Hg] Christo Howard APRN.BUSINESS DEVELOPMENT REPRESENTATIVE Work Phone: 06-10-2024 14:25-0500 Body height 168.91 cm [facility] 06-10-2024 14:25-0500 Body mass index (BMI) [Ratio] 32.8 kg/m2 [facility] 06-10-2024 14:25-0500 Body weight 93.55 kg [facility] 06-10-2024 14:25-0500 Diastolic blood pressure 79 mm[Hg] [facility] 06-10-2024 14:25-0500 Heart rate 61 /min [facility] 06-10-2024 14:25-0500 Respiratory rate 12 /min [facility] 06-10-2024 14:25-0500 Systolic blood pressure 153 mm[Hg] [facility] 05-09-2024 08:52-0400 Body mass index (BMI) [Ratio] 32.79 kg/m2 Marco A Esqueda MD Work Phone: 05-09-2024 08:52-0400 Body temperature 97.3 [degF] Marco A Esqueda MD Work Phone: 05-09-2024 08:52-0400 Body weight 92.1 kg Marco A Esqueda MD Work Phone: 05-09-2024 08:52-0400 Diastolic blood pressure 62 mm[Hg] Marco A Esqueda MD Work Phone: 05-09-2024 08:52-0400 Heart rate 62 /min Marco A Esqueda MD Work Phone: 05-09-2024 08:52-0400 Respiratory rate 16 /min Marco A Esqueda MD Work Phone: 05-09-2024 08:52-0400 SaO2% (BldA) [Mass fraction] 99 % Marco A Esqueda MD Work Phone: 05-09-2024 08:52-0400 Systolic blood pressure 141 mm[Hg] Marco A Esqueda MD Work Phone: 04-19-2024 08:15-0400 Blood Pressure Location Anthony SCRUGGS [facility] 04-19-2024 08:15-0400 Body temperature 98.6 [degF] Anthony [facility]CRUGGS [facility] 04-19-2024 08:15-0400 Diastolic blood pressure 69 mm[Hg] Anthony [facility]CRUGGS [facility] 04-19-2024 08:15-0400 Heart rate 64 /min Anthony [facility]CRUGGS [facility] 04-19-2024 08:15-0400 Respiratory rate 17 /min Anthony [facility]CRUGGS [facility] 04-19-2024 08:15-0400 Systolic blood pressure 129 mm[Hg] Anthony SCRUGGS [facility] 03-26-2024 08:37-0400 Body height 168.91 cm [facility] 03-26-2024 08:37-0400 Body mass index (BMI) [Ratio] 33 kg/m2 [facility] 03-26-2024 08:37-0400 Body weight 94.12 kg [facility] 03-26-2024 08:37-0400 Diastolic blood pressure 80 mm[Hg] [facility] 03-26-2024 08:37-0400 Heart rate 52 /min [facility] 03-26-2024 08:37-0400 Respiratory rate 12 /min [facility] 03-26-2024 08:37-0400 Systolic blood pressure 130 mm[Hg] [facility] 02-02-2024 11:06-0400 Body height 167.6 cm Lynne Gross CARPORT ERECTOR.BUSINESS DEVELOPMENT REPRESENTATIVE Work Phone: 02-02-2024 11:06-0400 Body mass index (BMI) [Ratio] 33.36 kg/m2 Lynne Gross CARPORT ERECTOR.BUSINESS DEVELOPMENT REPRESENTATIVE Work Phone: 02-02-2024 11:06-0400 Body temperature 97.3 [degF] Lynne Gross CARPORT ERECTOR.BUSINESS DEVELOPMENT REPRESENTATIVE Work Phone: 02-02-2024 11:06-0400 Body weight 93.7 kg Lynne Gross CARPORT ERECTOR.BUSINESS DEVELOPMENT REPRESENTATIVE Work Phone: 02-02-2024 11:06-0400 Diastolic blood pressure 54 mm[Hg] Lynne Gross CARPORT ERECTOR.BUSINESS DEVELOPMENT REPRESENTATIVE Work Phone: 02-02-2024 11:06-0400 Heart rate 52 /min Lynne Gross CARPORT ERECTOR.BUSINESS DEVELOPMENT REPRESENTATIVE Work Phone: 02-02-2024 11:06-0400 Respiratory rate 16 /min Lynne Gross CARPORT ERECTOR.BUSINESS DEVELOPMENT REPRESENTATIVE Work Phone: 02-02-2024 11:06-0400 SaO2% (BldA) [Mass fraction] 98 % Lynne Alarcon APRN.BUSINESS DEVELOPMENT REPRESENTATIVE Work Phone: 02-02-2024 11:06-0400 Systolic blood pressure 137 mm[Hg] Lynne Alarcon APRN.BUSINESS DEVELOPMENT REPRESENTATIVE Work Phone: 11-23-2023 08:38-0400 Body height 168.91 cm [facility] 11-23-2023 08:38-0400 Body mass index (BMI) [Ratio] 33.2 kg/m2 [facility] 11-23-2023 08:38-0400 Body weight 94.8 kg [facility] 11-23-2023 08:38-0400 Diastolic blood pressure 69 mm[Hg] [facility] 11-23-2023 08:38-0400 Heart rate 48 /min [facility] 11-23-2023 08:38-0400 Respiratory rate 12 /min [facility] 11-23-2023 08:38-0400 Systolic blood pressure 130 mm[Hg] [facility] 11-02-2023 09:14-0400 Body height 167.6 cm Christo Howard APRN.BUSINESS DEVELOPMENT REPRESENTATIVE Work Phone: 11-02-2023 09:14-0400 Body temperature 97.81 [degF] Christo Howard APRN.BUSINESS DEVELOPMENT REPRESENTATIVE Work Phone: 11-02-2023 09:14-0400 Body weight 92.9 kg Christo Howard APRN.BUSINESS DEVELOPMENT REPRESENTATIVE Work Phone: 11-02-2023 09:14-0400 Diastolic blood pressure 44 mm[Hg] Christo Howard APRN.BUSINESS DEVELOPMENT REPRESENTATIVE Work Phone: 11-02-2023 09:14-0400 Heart rate 56 /min Christo Howard APRN.BUSINESS DEVELOPMENT REPRESENTATIVE Work Phone: 11-02-2023 09:14-0400 Respiratory rate 16 /min Christo Howard APRN.BUSINESS DEVELOPMENT REPRESENTATIVE Work Phone: 11-02-2023 09:14-0400 SaO2% (BldA) [Mass fraction] 97 % Christo Howard APRN.BUSINESS DEVELOPMENT REPRESENTATIVE Work Phone: 11-02-2023 09:14-0400 Systolic blood pressure 123 mm[Hg] Christo Howard APRN.BUSINESS DEVELOPMENT REPRESENTATIVE Work Phone: 10-20-2023 09:05-0400 Blood Pressure Location Anthonycindy SCRUGGS [facility] 10-20-2023 09:05-0400 Diastolic blood pressure 64 mm[Hg] Anthony [facility]UGG[facility] 10-20-2023 09:05-0400 Heart rate 53 /min Anthony SCRUGGS [facility] 10-20-2023 09:05-0400 Respiratory rate 16 /min Anthonycindy SCRUGGS [facility] 10-20-2023 09:05-0400 Systolic blood pressure 110 mm[Hg] Anthonycindy SCRUGGS [facility] 09-12-2023 14:13-0500 Body height 168.91 cm [facility] 09-12-2023 14:13-0500 Body mass index (BMI) [Ratio] 33.4 kg/m2 [facility] 09-12-2023 14:13-0500 Body weight 95.42 kg [facility] 09-12-2023 14:13-0500 Diastolic blood pressure 84 mm[Hg] [facility] 09-12-2023 14:13-0500 Heart rate 56 /min [facility] 09-12-2023 14:13-0500 Respiratory rate 12 /min [facility] 09-12-2023 14:13-0500 Systolic blood pressure 143 mm[Hg] [facility] 08-24-2023 08:30-0500 Body height 168.91 cm Jamar Ball Other [facility] Other 08-24-2023 08:30-0500 Body mass index (BMI) [Ratio] 34.08 kg/m2 Jamar Ball Other [facility] 08-24-2023 08:30-0500 Body weight 97.25 kg Jamar Ball Other [facility] Other 08-24-2023 08:30-0500 Diastolic blood pressure 81 mm[Hg] Jamar Ball Other [facility] Other 08-24-2023 08:30-0500 Respiratory rate 12 /min Jaamr Ball Other [facility] Other 08-24-2023 08:30-0500 Systolic blood pressure 125 mm[Hg] Jamar Ball Other [facility] Other 05-30-2023 15:00-0500 Body height 168.91 cm Jamar Ball Other [facility] Other 05-30-2023 15:00-0500 Body mass index (BMI) [Ratio] 32.84 kg/m2 Jamar Ball Other [facility] Other 05-30-2023 15:00-0500 Body weight 93.71 kg Jamar Ball Other [facility] Other 05-30-2023 15:00-0500 Diastolic blood pressure 66 mm[Hg] Jamar Ball Other [facility] Other 05-30-2023 15:00-0500 Respiratory rate 12 /min Jamar Ball Other [facility] Other 05-30-2023 15:00-0500 Systolic blood pressure 141 mm[Hg] Jamar Ball Other [facility] Other 05-01-2023 09:45-0400 Body height 168.91 cm Jamar Ball Other [facility] Other 05-01-2023 09:45-0400 Body mass index (BMI) [Ratio] 32.14 kg/m2 Jamar Ball Other [facility] Other 05-01-2023 09:45-0400 Body weight 91.72 kg Jamar Ball Other [facility] Other 05-01-2023 09:45-0400 Diastolic blood pressure 62 mm[Hg] Jamar Ball Other [facility] Other 05-01-2023 09:45-0400 Respiratory rate 12 /min Jamar Ball Other [facility] Other 05-01-2023 09:45-0400 Systolic blood pressure 129 mm[Hg] Jamar Ball Other [facility] Other 04-27-2023 09:23-0400 Diastolic blood pressure 49 mm[Hg] Christo Howard APRN.BUSINESS DEVELOPMENT REPRESENTATIVE Work Phone: 04-27-2023 09:23-0400 Heart rate 50 /min Christo Howard APRN.BUSINESS DEVELOPMENT REPRESENTATIVE Work Phone: 04-27-2023 09:23-0400 Systolic blood pressure 141 mm[Hg] Christo Howard APRN.BUSINESS DEVELOPMENT REPRESENTATIVE Work Phone: 04-27-2023 09:20-0400 Body height 167.6 cm Christo Howard APRN.BUSINESS DEVELOPMENT REPRESENTATIVE Work Phone: 04-27-2023 09:20-0400 Body temperature 97 [degF] Christo Howard APRN.BUSINESS DEVELOPMENT REPRESENTATIVE Work Phone: 04-27-2023 09:20-0400 Body weight 92.53 kg Christo Howard APRN.BUSINESS DEVELOPMENT REPRESENTATIVE Work Phone: 04-27-2023 09:20-0400 Respiratory rate 16 /min Christo Hoawrd APRN.BUSINESS DEVELOPMENT REPRESENTATIVE Work Phone: 04-27-2023 09:20-0400 SaO2% (BldA) [Mass fraction] 100 % Christo Howard APRN.BUSINESS DEVELOPMENT REPRESENTATIVE Work Phone: 04-17-2023 08:45-0400 Blood Pressure Location Anthonycindy SCRUGGS [facility] 04-17-2023 08:45-0400 Diastolic blood pressure 68 mm[Hg] Anthony SCRUGGS [facility] 04-17-2023 08:45-0400 Heart rate 62 /min Anthony SCRUGGS [facility] 04-17-2023 08:45-0400 Respiratory rate 16 /min Anthony KAEL [facility] 04-17-2023 08:45-0400 Systolic blood pressure 130 mm[Hg] Anthony SCRUGGS [facility] 04-05-2023 13:45-0400 Body height 168.91 cm Jamar Fall Other [facility] Other 04-05-2023 13:45-0400 Body mass index (BMI) [Ratio] 32.46 kg/m2 Jamar Fall Other [facility] Other 04-05-2023 13:45-0400 Body weight 92.63 kg Jamar Ball Other [facility] Other 04-05-2023 13:45-0400 Diastolic blood pressure 67 mm[Hg] Jamar Ball Other [facility] Other 04-05-2023 13:45-0400 Respiratory rate 12 /min Jamar Ball Other [facility] Other 04-05-2023 13:45-0400 Systolic blood pressure 109 mm[Hg] Jamar Ball Other [facility] Other 03-15-2023 08:45-0400 Body height 168.91 cm Jamar Ball Other [facility] Other 03-15-2023 08:45-0400 Body mass index (BMI) [Ratio] 32.81 kg/m2 Jamar Ball Other [facility] Other 03-15-2023 08:45-0400 Body weight 93.62 kg Jamar Ball Other [facility] Other 03-15-2023 08:45-0400 Diastolic blood pressure 69 mm[Hg] Jamar Ball Other [facility] Other 03-15-2023 08:45-0400 Respiratory rate 12 /min Jamar Ball Other [facility] Other 03-15-2023 08:45-0400 Systolic blood pressure 131 mm[Hg] Jamar Ball Other [facility] Other 02-02-2023 09:32-0400 Body height 167.6 cm Marco A Esqueda MD Work Phone: 02-02-2023 09:32-0400 Body temperature 97.2 [degF] Marco A Esqueda MD Work Phone: 02-02-2023 09:32-0400 Body weight 96.62 kg Marco A Esqueda MD Work Phone: 02-02-2023 09:32-0400 Diastolic blood pressure 43 mm[Hg] Marco A Esqueda MD Work Phone: 02-02-2023 09:32-0400 Heart rate 50 /min Marco A Esqueda MD Work Phone: 02-02-2023 09:32-0400 Respiratory rate 16 /min Marco A Esqueda MD Work Phone: 02-02-2023 09:32-0400 SaO2% (BldA) [Mass fraction] 97 % Marco A Esqueda MD Work Phone: 02-02-2023 09:32-0400 Systolic blood pressure 131 mm[Hg] Marco A Esqueda MD Work Phone: 11-10-2022 09:30-0400 Body height 167.6 cm Christo Howard APRN.BUSINESS DEVELOPMENT REPRESENTATIVE Work Phone: 11-10-2022 09:30-0400 Body temperature 97.11 [degF] Christo Howard APRN.BUSINESS DEVELOPMENT REPRESENTATIVE Work Phone: 11-10-2022 09:30-0400 Body weight 96.44 kg Christo Howard APRN.BUSINESS DEVELOPMENT REPRESENTATIVE Work Phone: 11-10-2022 09:30-0400 Diastolic blood pressure 68 mm[Hg] Christo Howard APRN.BUSINESS DEVELOPMENT REPRESENTATIVE Work Phone: 11-10-2022 09:30-0400 Heart rate 54 /min Christo Howard APRN.BUSINESS DEVELOPMENT REPRESENTATIVE Work Phone: 11-10-2022 09:30-0400 Respiratory rate 16 /min Christo Howard APRN.BUSINESS DEVELOPMENT REPRESENTATIVE Work Phone: 11-10-2022 09:30-0400 SaO2% (BldA) [Mass fraction] 98 % Christo Howard APRN.BUSINESS DEVELOPMENT REPRESENTATIVE Work Phone: 11-10-2022 09:30-0400 Systolic blood pressure 134 mm[Hg] Christo Howard APRN.BUSINESS DEVELOPMENT REPRESENTATIVE Work Phone: 09-16-2022 08:30-0500 Body height 168.91 cm Jamar Ball Other [facility] Other 09-16-2022 08:30-0500 Body mass index (BMI) [Ratio] 33.16 kg/m2 Jamar Ball Other [facility] Other 09-16-2022 08:30-0500 Body weight 94.62 kg Jamar Ball Other [facility] Other 09-16-2022 08:30-0500 Diastolic blood pressure 78 mm[Hg] Jamar Ball Other [facility] Other 09-16-2022 08:30-0500 Respiratory rate 12 /min Jamar Ball Other [facility] Other 09-16-2022 08:30-0500 Systolic blood pressure 116 mm[Hg] Jamar Ball Other [facility] Other 09-09-2022 08:30-0500 Body height 168.91 cm Jamar Ball Other [facility] Other 09-09-2022 08:30-0500 Body mass index (BMI) [Ratio] 33.45 kg/m2 Jamar Ball Other [facility] Other 09-09-2022 08:30-0500 Body weight 95.44 kg Jamar Ball Other [facility] Other 09-09-2022 08:30-0500 Diastolic blood pressure 76 mm[Hg] Jamar Ball Other [facility] Other 09-09-2022 08:30-0500 Respiratory rate 12 /min Jamar Ball Other [facility] Other 09-09-2022 08:30-0500 Systolic blood pressure 118 mm[Hg] Jamar Ball Other [facility] Other 09-09-2022 07:30-0500 Body height 168.91 cm Jamar Ball Other [facility] Other 09-09-2022 07:30-0500 Body mass index (BMI) [Ratio] 33.45 kg/m2 Jamar Ball Other [facility] Other 09-09-2022 07:30-0500 Body weight 95.44 kg Jamar Ball Other [facility] Other 09-09-2022 07:30-0500 Diastolic blood pressure 76 mm[Hg] Jamar Ball Other [facility] Other 09-09-2022 07:30-0500 Respiratory rate 12 /min Jamar Ball Other [facility] Other 09-09-2022 07:30-0500 Systolic blood pressure 118 mm[Hg] Jamar Ball Other [facility] Other 08-11-2022 09:24-0500 Body height 167.6 cm Marco A Esqueda MD Work Phone: 08-11-2022 09:24-0500 Body temperature 97 [degF] Marco A Esqueda MD Work Phone: 08-11-2022 09:24-0500 Body weight 96.44 kg Marco A Esqueda MD Work Phone: 08-11-2022 09:24-0500 Diastolic blood pressure 56 mm[Hg] Marco A Esqueda MD Work Phone: 08-11-2022 09:24-0500 Heart rate 53 /min Marco A Esqueda MD Work Phone: 08-11-2022 09:24-0500 Respiratory rate 16 /min Marco A Esqueda MD Work Phone: 08-11-2022 09:24-0500 SaO2% (BldA) [Mass fraction] 97 % Marco A Esqueda MD Work Phone: 08-11-2022 09:24-0500 Systolic blood pressure 129 mm[Hg] Marco A Esqueda MD Work Phone: 07-21-2022 15:30-0500 Body height 168.91 cm Jamar Ball Other [facility] Other 07-21-2022 15:30-0500 Body mass index (BMI) [Ratio] 34.18 kg/m2 Jamar Ball Other [facility] Other 07-21-2022 15:30-0500 Body weight 97.52 kg Jamar Ball Other [facility] Other 07-21-2022 15:30-0500 Diastolic blood pressure 76 mm[Hg] Jamar Ball Other [facility] Other 07-21-2022 15:30-0500 Respiratory rate 16 /min Jamar Ball Other [facility] Other 07-21-2022 15:30-0500 Systolic blood pressure 118 mm[Hg] Jamar Ball Other [facility] Other 05-13-2022 09:07-0400 Blood Pressure Location Anthony [facility]CRUGG[facility] 05-13-2022 09:07-0400 Diastolic blood pressure 72 mm[Hg] Anthonycindy SCRUGGS [facility] 05-13-2022 09:07-0400 Heart rate 55 /min Anthony SCRUGGS [facility] 05-13-2022 09:07-0400 Respiratory rate 16 /min Anthony SCRUGGS [facility] 05-13-2022 09:07-0400 Systolic blood pressure 108 mm[Hg] Anthony SCRUGGS [facility] 05-12-2022 10:41-0400 Body temperature 97.81 [degF] LUAN Khan MD Work Phone: 05-12-2022 10:41-0400 Body weight 95.07 kg LUAN Khan MD Work Phone: 05-12-2022 10:41-0400 Diastolic blood pressure 42 mm[Hg] LUAN Khan MD Work Phone: 05-12-2022 10:41-0400 Heart rate 51 /min LUAN Khan MD Work Phone: 05-12-2022 10:41-0400 Respiratory rate 18 /min LUAN Khan MD Work Phone: 05-12-2022 10:41-0400 SaO2% (BldA) [Mass fraction] 99 % LAUN Khan MD Work Phone: 05-12-2022 10:41-0400 Systolic blood pressure 134 mm[Hg] LUAN Khan MD Work Phone: 02-17-2022 09:36-0400 Body height 167.6 cm Marco A Esqueda MD Work Phone: 02-17-2022 09:36-0400 Body temperature 97.9 [degF] Marco A Esqueda MD Work Phone: 02-17-2022 09:36-0400 Body weight 97.07 kg Marco A Esqueda MD Work Phone: 02-17-2022 09:36-0400 Diastolic blood pressure 58 mm[Hg] Marco A Esqueda MD Work Phone: 02-17-2022 09:36-0400 Heart rate 63 /min Marco A Esqueda MD Work Phone: 02-17-2022 09:36-0400 Respiratory rate 16 /min Marco A Esqueda MD Work Phone: 02-17-2022 09:36-0400 SaO2% (BldA) [Mass fraction] 99 % Marco A Esqueda MD Work Phone: 02-17-2022 09:36-0400 Systolic blood pressure 133 mm[Hg] Marco A Esqueda MD Work Phone: 11-18-2021 10:50-0400 Body temperature 97.7 [degF] [facility] Work Phone: 11-18-2021 10:50-0400 Diastolic blood pressure 63 mm[Hg] [facility] Work Phone: 11-18-2021 10:50-0400 Heart rate 60 /min [facility] [place] Work Phone: 11-18-2021 10:50-0400 Respiratory rate 18 /min [facility] [place] Work Phone: 11-18-2021 10:50-0400 SaO2% (BldA) [Mass fraction] 95 % [facility] Work Phone: 11-18-2021 10:50-0400 Systolic blood pressure 139 mm[Hg] [facility] Work Phone: 11-11-2021 13:58-0400 Body height 167.6 cm Marco A Esqueda MD Work Phone: 11-11-2021 13:58-0400 Body temperature 97.39 [degF] Marco A Esqueda MD Work Phone: 11-11-2021 13:58-0400 Body weight 98.97 kg Marco A Esqueda MD Work Phone: 11-11-2021 13:58-0400 Diastolic blood pressure 54 mm[Hg] Marco A Esqueda MD Work Phone: 11-11-2021 13:58-0400 Heart rate 68 /min Marco A Esqueda MD Work Phone: 11-11-2021 13:58-0400 Respiratory rate 16 /min Marco A Esqueda MD Work Phone: 11-11-2021 13:58-0400 SaO2% (BldA) [Mass fraction] 98 % Marco A Esqueda MD Work Phone: 11-11-2021 13:58-0400 Systolic blood pressure 130 mm[Hg] Marco A Esqueda MD Work Phone: 11-08-2021 13:03-0400 Blood Pressure Location Anthony SCRUGGS [facility] 11-08-2021 13:03-0400 Diastolic blood pressure 60 mm[Hg] Anthony SCRUGGS [facility] 11-08-2021 13:03-0400 Heart rate 61 /min Anthoyn SCRUGGS [facility] [place] 11-08-2021 13:03-0400 Systolic blood pressure 135 mm[Hg] Anthony SCRUGGS [facility] [place] Encounters Encounter Date Encounter Type Care Provider Facility Start: 03-31-2025 ambulatory Anthony Bloomi ty:[facility] [place] Start: 11-07-2024 End: 11-07-2024 ambulatory MARCO A ESQUEDA Facility:[place] Start: 10-31-2024 End: 10-31-2024 ambulatory JAMAR FALL Facility:[place] Start: 10-21-2024 End: 10-21-2024 ambulatory Nicole Herrera MD Facility:[facility] Start: 10-07-2024 End: 10-07-2024 ambulatory Anthony SCRUGGS Facility: [place] Start: 10-07-2024 End: 10-07-2024 ambulatory Nicole Herrera MD Facility:[facility] [place] Start: 09-02-2024 End: 09-02-2024 ambulatory [facility] Work Phone: Start: 09-02-2024 End: 09-02-2024 Patient encounter procedure [facility] Work Phone: Start: 08-30-2024 Patient encounter procedure [facility] Start: 08-08-2024 End: 08-08-2024 ambulatory Lab/Port Himanshu Ariella Work Phone: Hematology/Oncology Comment on above: Malignant neoplasm o f prostate (HCC) (Primary Dx) Malignant neoplasm o f prostate (HCC) (Primary Dx); Essential hypertension; 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, unspecified vessel or lesion type; Type 2 diabetes mellitus without complication, without long-term current use of insulin (HCC) Start: 08-08-2024 End: 08-08-2024 Patient encounter procedure Christo Howard APRN.CNP Work Phone: Hematology/Oncology Start: 08-01-2024 End: 08-01-2024 ambulatory JAMAR Jessica FALL Facility:[place] Start: 08-01-2024 Non-patient / Non-visit [facility] Work Phone: Start: 07-25-2024 End: 10-16-2024 Telephone encounter Marco A Esqueda MD Work Phone: [facility] Comment on above: Lab Orders Start: 06-10-2024 End: 06-10-2024 Patient encounter procedure [facility] Work Phone: Start: 05-09-2024 End: 05-09-2024 ambulatory Lab[facility] Himanshu Ariella Work Phone: Hematology/Oncology Comment on above: Malignant neoplasm o f prostate (HCC) (Primary Dx) Start: 05-09-2024 End: 05-09-2024 Patient encounter procedure Marco A Esqueda MD Work Phone: Hematology/Oncology Start: 05-08-2024 End: 05-08-2024 Refill Aida Luo [facility] Work Phone: [facility] Comment on above: Refill Request Start: 05-03-2024 End: 05-03-2024 ambulatory JAMAR FALL Facility:[place] Start: 04-19-2024 End: 04-19-2024 ambulatory Anthony SCRUGGS Facility:[facility] Start: 04-19-2024 End: 04-19-2024 Patient encounter procedure Anthony SCRUGGS [facility] Start: 04-01-2024 End: 04-01-2024 Refill Marco A Esqueda MD Work Phone: Hematology/Oncology Comment on above: Refill Request Start: 04-01-2024 End: 04-01-2024 Refill Aida Luo [facility] Work Phone: [facility] HB[facility] Comment on above: Refill Request Start: 03-29-2024 Encounter for preprocedural cardiovascular examination [facility] Start: 03-29-2024 End: 04-01-2024 ambulatory [facility] Start: 03-29-2024 End: 04-01-2024 Encounter for other preprocedural examination [facility] Start: 03-29-2024 End: 04-01-2024 Encounter for preprocedural cardiovascular examination [facility] Start: 03-26-2024 End: 03-26-2024 ambulatory [facility] Work Phone: Start: 03-26-2024 End: 03-26-2024 Patient encounter procedure [facility] Work Phone: Start: 02-29-2024 End: 02-29-2024 ambulatory ALEXIA FRANCO Not Available Start: 02-26-2024 End: 02-26-2024 ambulatory LONG Iraj BOO Not Available Start: 02-02-2024 End: 02-02-2024 ambulatory Lab[facility] Him[facility]hu Krishnan Work Phone: Hematology/Oncology Comment on above: Malignant neoplasm o f prostate (HCC) (Primary Dx) Start: 02-02-2024 End: 02-02-2024 Patient encounter procedure Lynne Alarcon APRN.BUSINESS DEVELOPMENT REPRESENTATIVE Work Phone: Hematology/Oncology Comment on above: Malignant neoplasm o f prostate (HCC) (Primary Dx) Start: 01-25-2024 End: 01-25-2024 ambulatory JAMAR FALL Facility:[place] Start: 01-25-2024 Non-patient / Non-visit [facility] [place] Work Phone: Start: 11-23-2023 End: 11-23-2023 ambulatory [facility] Work Phone: Start: 11-23-2023 End: 11-23-2023 Patient encounter procedure [facility] Work Phone: Start: 11-02-2023 End: 11-02-2023 ambulatory Lab[facility] Himanshu Ariella Work Phone: Hematology/Oncology Comment on above: Malignant neoplasm o f prostate (HCC) (Primary Dx) Malignant neoplasm o f prostate (HCC) (Primary Dx); Essential hypertension; 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, unspecified vessel or lesion type; Type 2 diabetes mellitus without complication, without long-term current use of insulin (HCC); Lesion of skin of right ear; Abdominal discomfort Start: 11-02-2023 End: 11-02-2023 Patient encounter procedure Christo Howard APRN.BUSINESS DEVELOPMENT REPRESENTATIVE Work Phone: [facility] Start: 10-30-2023 Non-patient / Non-visit [facility] Work Phone: Start: 10-20-2023 End: 10-20-2023 ambulatory Anthony SCRUGGS Facility:[facility] Start: 10-20-2023 End: 10-20-2023 Patient encounter procedure Anthony SCRUGGS [facility] Start: 10-09-2023 Non-patient / Non-visit [facility] Work Phone: Start: 09-28-2023 End: 09-28-2023 ambulatory PABLO CHRISTINA Not Available Start: 09-12-2023 End: 09-12-2023 Patient encounter procedure [facility] Work Phone: Start: 09-06-2023 Non-patient / Non-visit [facility] Work Phone: Start: 08-28-2023 Bamboo flowsheet Long myrick CARPORT ERECTOR-BUSINESS DEVELOPMENT REPRESENTATIVE Work Phone: [facility] Start: 08-28-[address] CARPORT ERECTOR-BUSINESS DEVELOPMENT REPRESENTATIVE Work Phone: [facility] Start: 08-28-2023 End: 08-28-2023 Patient encounter procedure Long Boo CARPORT ERECTOR-BUSINESS DEVELOPMENT REPRESENTATIVE Work Phone: [facility] Comment on above: Neoplasm of unspecif ied behavior of bone, soft tissue, and skin; Actinic keratosis Start: 08-28-2023 End: 08-28-2023 ambulatory LONG BOO Not Available Start: 08-24-2023 End: 08-24-2023 ambulatory Jamar Fall Other [facility] Other Start: 08-24-2023 Patient encounter procedure Jamar Fall [facility] Start: 08-04-2023 End: 08-04-2023 ambulatory Jamar Fall Other [facility] Other Start: 08-04-2023 Telephone encounter Jamar EDMONDS [facility] Start: 06-22-2023 End: 06-22-2023 ambulatory [facility] Start: 06-05-2023 Telephone encounter Jamar EDMONDS [facility] Start: 06-05-2023 End: 06-05-2023 ambulatory EMELINA [facility] Other Start: 05-30-2023 End: 05-30-2023 ambulatory Jamar Fall Other [facility] Other Start: 05-30-2023 Office outpatient vi sit 15 minutes Jamar Juan David [facility] Start: 05-01-2023 End: 05-01-2023 ambulatory Jamar Fall Other [facility] Other Start: 05-01-2023 Office outpatient vi sit 15 minutes Jamar Juan David 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, unspecified vessel or lesion type; Essential hypertension; Type 2 diabetes mellitus without complication, without long-term current use of insulin (HCC) Start: 04-27-2023 End: 04-27-2023 Patient encounter procedure Christo Howard ERIC Work Phone: [facility] Start: 04-25-2023 End: 04-25-2023 ambulatory Jamar Juan David Other [facility] Other Start: 04-25-2023 Telephone encounter Jamar Ball [facility] Start: 04-18-2023 End: 04-18-2023 ambulatory Jamar Ball Other [facility] Other Start: 04-18-2023 Telephone encounter Jamar Ball [facility] Start: 04-17-2023 End: 04-17-2023 Patient encounter procedure Anthony SCRUGGS [facility] Start: 04-12-2023 End: 04-12-2023 ambulatory Jamar Fall Other [facility] Other Start: 04-12-2023 Telephone encounter Jamar Ball [facility] Start: 04-06-2023 End: 04-06-2023 ambulatory Jamar Ball Other [facility] Other Start: 04-06-2023 Telephone encounter Jamar Ball [facility] Start: 04-05-2023 End: 04-05-2023 ambulatory Jamar Ball Other [facility] Other Start: 04-05-2023 Office outpatient vi sit 15 minutes Jamar Ball [facility] Start: 04-05-2023 Telephone encounter Jamar Ball [facility] Start: 03-15-2023 End: 03-15-2023 ambulatory Jamar Ball Other [facility] Other Start: 03-15-2023 Office outpatient vi sit 25 minutes Jamar Fall [facility] Start: 02-05-2023 End: 02-05-2023 ambulatory Jamar Fall Other [facility] Other Start: 02-05-2023 Telephone encounter Jamar Fall [facility] Start: 02-02-2023 End: 02-02-2023 ambulatory Lab/Port Himanshu Hilmar Work Phone: Hematology/Oncology Comment on above: Malignant neoplasm o f prostate (HCC) (Primary Dx) Start: 02-02-2023 End: 02-02-2023 Patient encounter procedure Marco A Esqueda MD Work Phone: [email or web address] Start: 11-15-2022 End: 11-15-2022 ambulatory Jamar Fall Other [facility] Other Start: 11-15-2022 Encounter by [employer] Jamar Fall [facility] Start: 11-11-2022 End: 11-11-2022 ambulatory Jamar Fall Other [facility] Other Start: 11-11-2022 Encounter by [employer] Jamar Fall [facility] Start: 11-10-2022 End: 11-10-2022 ambulatory Lab/Port Himanshu Hilmar Work Phone: Hematology/Oncology Comment on above: Malignant neoplasm o f prostate (HCC) (Primary Dx) Malignant neoplasm o f prostate (HCC) (Primary Dx); 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 Facility: Start: 09-16-2022 End: 09-16-2022 ambulatory Jamar Fall Other [facility] Other Start: 09-16-2022 Office outpatient vi sit 15 minutes Jamar Fall [facility] Start: 09-09-2022 End: 09-09-2022 ambulatory Jamar Fall Other [facility] Other Start: 09-09-2022 Patient encounter procedure Jamar MENDIETA 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, unspecified vessel or lesion type; Essential hypertension; Type 2 diabetes mellitus without complication, without long-term current use of insulin (HCC) Start: 08-11-2022 End: 08-11-2022 Patient encounter procedure Marco A Esqueda MD Work Phone: [email or web address] Start: 07-21-2022 End: 07-22-[address] JAMAR FALL [facility] [employer] Other Start: 07-21-2022 Office outpatient vi sit 15 minutes Jamar Fall [facility] Start: 07-21-2022 Patient encounter procedure Jamar Fall [facility] Start: 07-21-2022 Telephone encounter Jamar Serrano [facility] Start: 05-27-2022 End: 05-28-2022 ambulatory NONE LISTED REQUEST Facility: Start: 05-13-2022 End: 05-13-2022 Patient encounter procedure Anthony SCRUGGS [facility] Start: 05-12-2022 End: 05-12-2022 Patient encounter procedure Zach Khan MD Work Phone: Radiation Oncology Comment on above: Malignant neoplasm o f prostate (HCC) (Primary Dx) Start: 05-12-2022 End: 05-12-2022 ambulatory Lab/Port Himanshu Hilmar Work Phone: Hematology/Oncology Comment on above: Malignant neoplasm o f prostate (HCC) (Primary Dx) Start: 05-05-2022 End: 05-06-[address] ANTHONY SCRUGGS . Facility:[facility] Start: 05-02-2022 Telephone encounter Christo goldberg APRN.CNP Work Phone: Hematology/Oncology Comment on above: Lab Orders Start: 04-27-2022 End: 04-28-2022 ambulatory LORA ESPINOSAS Facility:[facility] Start: 02-17-2022 End: 02-17-2022 ambulatory Marco A Esqueda MD Work Phone: Hematology/Oncology Comment on above: Malignant neoplasm o f prostate (HCC) (Primary Dx); Bone metastasis (HCC) Start: 02-17-2022 End: 02-17-2022 Patient encounter procedure Mraco A Esqueda MD Work Phone: [email or web address] Start: 01-25-2022 End: 01-26-[address] DE LISTED REQUEST Facility:[facility] Start: 12-06-2021 Telephone encounter Clementine steinberg RN Work Phone: Hematology/Oncology Comment on above: Care Coordination (R efill Question) Start: 11-18-2021 End: 11-18-2021 ambulatory Lab/Port Himanshu Hilmar Work Phone: Hematology/Oncology Comment on above: Malignant neoplasm o f prostate (HCC) (Primary Dx) Start: 11-11-2021 End: 11-11-2021 ambulatory Marco A Esqueda MD Work Phone: Hematology/Oncology Comment on above: Malignant neoplasm o f prostate (HCC) (Primary Dx); Bone metastasis (HCC) Start: 11-11-2021 End: 11-11-2021 Patient encounter procedure Marco A Esqueda MD Work Phone: [email or web address] Start: 11-10-2021 Telephone encounter Clementine steinberg RN Work Phone: Hematology/Oncology Comment on above: Care Coordination (M edication Update) Start: 11-09-2021 Telephone encounter Clementine steinberg RN Work Phone: Hematology/Oncology Comment on above: Care Coordination (M edication Start Date - Enzalutamide) Start: 11-08-2021 End: 11-08-2021 Patient encounter procedure Anthony SCRUGGS [facility] Start: 11-05-2021 End: 11-06-[address] MARCO A ESQUEDA Facility:[facility] Start: 11-04-2021 ambulatory Clementine lee RN Work Phone: Hematology/Oncology Comment on above: Oral Anti-cancer Age nt Education (Enzalutamide) Start: 11-04-2021 Telephone encounter Aida Coles [facility] Work Phone: Hematology/Oncology Comment on above: Medication [...] Orders Start: 07-22-2021 Adult health examination Bam jennifer Fall Other [facility] Other Procedures Date Procedure Procedure Detail Performing Clinician Start: 08-28-2023 CRYOTHERAPY SKIN LESION Long Boo CARPORT ERECTOR-BUSINESS DEVELOPMENT REPRESENTATIVE Work Phone: Start: 08-28-2023 SKIN / NAIL BIOPSY Windy Boo CARPORT ERECTOR-BUSINESS DEVELOPMENT REPRESENTATIVE Work Phone: Start: 07-17-2023 Decompression of med anthony nerve Anthony SCRUGGS Start: 10-25-[address] JESE FALL Comment on above: Performed By: #### P SAD #### [facility] [address], [place] [address] Dr. Bharati Aguiar Start: 05-05-[address] JESE FALL Comment on above: Performed By: #### P SAD ####[facility] [address] [place], [place] [address]YfDr. Bharati Aguiar Start: 02-16-2022 Adult depression scr eening assessment Marco A Esqueda MD Work Phone: Start: 11-10-2021 Adult depression scr eening assessment Clementine Agiular RN Work Phone: Start: 05-03-2021 Adult depression scr eening assessment Marco A Esqueda MD Work Phone: Start: 03-30-2018 Teleradiotherapy procedure Anthony KAEL Comment on above: Started on 01/2018 co mpleted 03/30/18 Start: 10-20-2015 Cystoscopy Anthony CHAVEZ Start: 07-04-2015 Screening for malign ant neoplasm of colon Jamar Juan David Other Start: 11-05-2014 Radical prostatectomy Ruperto SCRUGGS Start: 08-25-2014 Pre-surgery evaluation Jamar Fall Other Start: 08-25-2014 Preoperative cardiov ascular examination Jamar Juan David Other Start: 08-17-2014 Coronary artery bypass graft Anhtony SCRUGGS Start: 07-02-2014 Transrectal biopsy o f [...] DTaP,Tdap,Td Vaccine (6 - Td or Tdap) Start: 08-01-2027 Diabetes Screening Diabetes Screening Start: 05-03-2027 Diabetes Screening Diabetes Screening Start: 01-24-2027 Diabetes Screening Diabetes Screening Start: 10-29-2026 Diabetes Screening Diabetes Screening Start: 04-24-2026 Diabetes Screening Diabetes Screening Start: 02-02-2026 DIABETES SCREEN DIABETES SCREEN Start: 11-10-2025 DIABETES SCREEN DIABETES SCREEN Start: 08-11-2025 DIABETES SCREEN DIABETES SCREEN Start: 05-12-2025 DIABETES SCREEN DIABETES SCREEN Start: 02-17-2025 DIABETES SCREEN DIABETES SCREEN Start: 11-11-2024 DIABETES SCREEN DIABETES SCREEN Start: 11-07-2024 End: 11-07-2024 Follow-up encounter Hematology/Oncology Comment on above: 3 month lab follow up with xgiselle inj Start: 11-06-2024 End: 02-05-2025 CBC W Auto Differential panel - Blood COMPLETE BLOOD COUNT AND DIFFERENTIAL Lab Routine Malignant neoplasm of prostate (HCC) Essential hypertension 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, unspecified vessel or lesion type Type 2 diabetes mellitus without complication, without long-term current use of insulin (HCC) Expected: 11/06/2024, Expires: 02/05/2025 [facility] Work Phone: Comment on above: Expected: 11/06/2024, Expires: Start: 11-06-2024 End: 02-05-2025 Comprehensive metabolic 2000 panel - Serum or Plasma COMPREHENSIVE METABOLIC PANEL Lab Routine Malignant neoplasm of prostate (HCC) Essential hypertension 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, unspecified vessel or lesion type Type 2 diabetes mellitus without complication, without long-term current use of insulin (HCC) Expected: 11/06/2024, Expires: 02/05/2025 Comment on above: Expected: 11/06/2024, Expires: Start: 11-06-2024 End: 02-05-2025 Prostate specific Ag [Mass/volume] in Serum or Plasma PROSTATE-SPECIFIC ANTIGEN DIAGNOSTIC Lab Routine Malignant neoplasm of prostate (HCC) Essential hypertension 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, unspecified vessel or lesion type Type 2 diabetes mellitus without complication, without long-term current use of insulin (HCC) Expected: 11/06/2024, Expires: 02/05/2025 Comment on above: Expected: 11/06/2024, Expires: Start: 10-31-2024 End: 10-31-2024 Patient encounter procedure 10/31/2024 9:00 AM EDT Office Visit [facility] [address] [place] [address] lab [facility] Comment on above: lab Start: 10-25-2024 Covid-19 Vaccine ( season) Covid-19 Vaccine () Start: 08-08-2024 End: 08-08-2024 Follow-up encounter Hematology/Oncology Comment on above: 3 month lab follow up with xgeva inj Start: 08-01-2024 End: 08-01-2024 Patient encounter procedure 08/01/2024 9:00 AM EST Office Visit [facility] [address] [place] [place] [address] 3 month labs [facility] Comment on above: 3 month labs Start: 07-17-2024 Advance Directive Discussion Advance Directive Discussion Start: 05-09-2024 End: 05-09-2024 Follow-up encounter Hematology/Oncology Comment on above: 3 month lab follow up with xgeva inj Start: 05-07-2024 End: 05-07-2024 Patient encounter procedure 05/07/2024 9:00 AM EDT Office Visit [facility] [address] [place] [place] [address] 3 month lab follow up with xgeva inj [facility] Comment on above: 3 month lab follow up with xgeva inj Start: 05-03-2024 End: 05-03-2024 Patient encounter procedure 05/03/2024 9:00 AM EDT Office Visit [facility] [address] [place] [place] [address] 3 month lab follow up with xgeva inj [facility] Comment on above: 3 month lab follow up with xgeva inj Start: 04-29-2024 End: 07-29-2024 CBC W Auto Differential panel - Blood COMPLETE BLOOD COUNT AND DIFFERENTIAL Lab Routine Malignant neoplasm of prostate (HCC) Expected: 04/29/2024, Expires: 07/29/2024 [facility] Work Phone: Comment on above: Expected: 04/29/2024, Expires: Start: 04-29-2024 End: 07-29-2024 Comprehensive metabolic 2000 panel - Serum or Plasma COMPREHENSIVE METABOLIC PANEL Lab Routine Malignant neoplasm of prostate (HCC) Expected: 04/29/2024, Expires: 07/29/2024 Comment on above: Expected: 04/29/2024, Expires: Start: 04-29-2024 End: 07-29-2024 Prostate specific Ag [Mass/volume] in Serum or Plasma PROSTATE-SPECIFIC ANTIGEN DIAGNOSTIC Lab Routine Malignant neoplasm of prostate (HCC) Expected: 04/29/2024, Expires: 07/29/2024 Comment on above: Expected: 04/29/2024, Expires: Start: 03-17-2024 Covid-19 Vaccine ( season) Covid-19 Vaccine () Start: 03-17-2024 Influenza vaccination Influenza Vaccine (#1) Randolph Raquel c Start: 02-26-2024 End: 02-26-2024 Patient encounter procedure 02/26/2024 10:10 AM EDT Office Visit [facility] [address] [place] [id number] Long Boo APRN-BUSINESS DEVELOPMENT REPRESENTATIVE [address] [place] [address] [facility] Start: 11-03-2023 End: 02-02-2024 CBC W Auto Differential panel - Blood COMPLETE BLOOD COUNT AND DIFFERENTIAL Lab Routine Malignant neoplasm of prostate (HCC) Essential hypertension 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, unspecified vessel or lesion type Type 2 diabetes mellitus without complication, without long-term current use of insulin (HCC) Lesion of skin of right ear Abdominal discomfort Expected: 11/03/2023, Expires: 02/02/2024 [facility] Work Phone: Comment on above: Expected: 11/03/2023, Expires: Start: 11-03-2023 End: 02-02-2024 Comprehensive metabolic 2000 panel - Serum or Plasma COMPREHENSIVE METABOLIC PANEL Lab Routine Malignant neoplasm of prostate (HCC) Essential hypertension 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, unspecified vessel or lesion type Type 2 diabetes mellitus without complication, without long-term current use of insulin (HCC) Lesion of skin of right ear Abdominal discomfort Expected: 11/03/2023, Expires: 02/02/2024 [facility] Work Phone: Comment on above: Expected: 11/03/2023, Expires: Start: 11-03-2023 End: 02-02-2024 Prostate specific Ag [Mass/volume] in Serum or Plasma PROSTATE-SPECIFIC ANTIGEN DIAGNOSTIC Lab Routine Malignant neoplasm of prostate (HCC) Essential hypertension 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, unspecified vessel or lesion type Type 2 diabetes mellitus without complication, without long-term current use of insulin (HCC) Lesion of skin of right ear Abdominal discomfort Expected: 11/03/2023, Expires: 02/02/2024 [facility] Work Phone: Comment on above: Expected: 11/03/2023, Expires: Start: 08-28-2023 End: 08-28-2023 Patient encounter procedure 08/28/2023 11:25 AM EST Office Visit [facility] [address] [place] [id number] Long Boo APRN-BUSINESS DEVELOPMENT REPRESENTATIVE [address] [place] [address] Arrived [facility] Comment on above: Arrived Start: 07-28-2023 End: 09-27-2023 CBC W Auto Differential panel - Blood CBC + DIFF Lab Routine Malignant neoplasm of prostate (HCC) 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, unspecified vessel or lesion type Essential hypertension Type 2 diabetes mellitus without complication, without long-term current use of insulin (HCC) Expected: 07/28/2023, Expires: 09/27/2023 [facility] Work Phone: Comment on above: Expected: 07/28/2023, Expires: Start: 07-28-2023 End: 09-27-2023 Comprehensive metabolic 2000 panel - Serum or Plasma COMP METABOLIC PANEL Lab Routine Malignant neoplasm of prostate (HCC) 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, unspecified vessel or lesion type Essential hypertension Type 2 diabetes mellitus without complication, without long-term current use of insulin (HCC) Expected: 07/28/2023, Expires: 09/27/2023 [facility] Work Phone: Comment on above: Expected: 07/28/2023, Expires: Start: 07-28-2023 End: 09-27-2023 Prostate specific Ag [Mass/volume] in Serum or Plasma PSA/PROSTSPECAG DIAG Lab Routine Malignant neoplasm of prostate (HCC) 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, unspecified vessel or lesion type Essential hypertension Type 2 diabetes mellitus without complication, without long-term current use of insulin (HCC) Expected: 07/28/2023, Expires: 09/27/2023 [facility] Work Phone: Comment on above: Expected: 07/28/2023, Expires: Start: 07-17-2023 Advance Directive Discussion Advance Directive Discussion Start: 07-17-2023 Behavioral Health Screening Behavioral Health Screening Start: 06-19-2023 Urine microalbumin profile Start: 05-03-2023 End: 07-03-2023 Basic metabolic 2000 panel - Serum or Plasma BASIC METABOLIC PNL Lab Routine Malignant neoplasm of prostate (HCC) Expected: 05/03/2023 (Approximate), Expires: 07/03/2023 [facility] Work Phone: Comment on above: Expected: 05/03/2023 (Approximate), Expi res: 07/03/2023 Start: 05-03-2023 End: 07-03-2023 CBC W Auto Differential panel - Blood CBC + DIFF Lab Routine Malignant neoplasm of prostate (HCC) Expected: 05/03/2023 (Approximate), Expires: 07/03/2023 [facility] Work Phone: Comment on above: Expected: 05/03/2023 (Approximate), Expi res: 07/03/2023 Start: 05-03-2023 End: 07-03-2023 Prostate specific Ag [Mass/volume] in Serum or Plasma PSA/PROSTSPECAG DIAG Lab Routine Malignant neoplasm of prostate (HCC) Expected: 05/03/2023 (Approximate), Expires: 07/03/2023 [facility] Work Phone: Comment on above: Expected: 05/03/2023 (Approximate), Expi res: 07/03/2023 Start: 05-03-2023 End: 07-03-2023 Testosterone [Mass/volume] in Serum or Plasma TESTOSTERONE TOTAL Lab Routine Malignant neoplasm of prostate (HCC) Expected: 05/03/2023 (Approximate), Expires: 07/03/2023 [facility] Work Phone: Comment on above: Expected: 05/03/2023 (Approximate), Expi res: 07/03/2023 Start: 03-17-2023 Covid-19 Vaccine () Covid-19 Vaccine () Start: 03-17-2023 Influenza vaccination Start: 02-16-2023 Adult depression screening assessment DEPRESSION SCREENING Start: 02-09-2023 End: 04-11-2023 CBC W Auto Differential panel - Blood CBC + DIFF Lab Routine Malignant neoplasm of prostate (HCC) 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, unspecified vessel or lesion type Essential hypertension Type 2 diabetes mellitus without complication, without long-term current use of insulin (HCC) Expected: 02/09/2023, Expires: 04/11/2023 [facility] Work Phone: Comment on above: Expected: 02/09/2023, Expires: Start: 02-09-2023 End: 04-11-2023 Comprehensive metabolic 2000 panel - Serum or Plasma COMP METABOLIC PANEL Lab Routine Malignant neoplasm of prostate (HCC) 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, unspecified vessel or lesion type Essential hypertension Type 2 diabetes mellitus without complication, without long-term current use of insulin (HCC) Expected: 02/09/2023, Expires: 04/11/2023 [facility] Work Phone: Comment on above: Expected: 02/09/2023, Expires: 3 Start: 02-09-2023 End: 04-11-2023 Prostate specific Ag [Mass/volume] in Serum or Plasma PSA/PROSTSPECAG DIAG Lab Routine Malignant neoplasm of prostate (HCC) 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, unspecified vessel or lesion type Essential hypertension Type 2 diabetes mellitus without complication, without long-term current use of insulin (HCC) Expected: 02/09/2023, Expires: 04/11/2023 [facility] Work Phone: Comment on above: Expected: 02/09/2023, Expires: 3 Start: 11-10-2022 Adult depression screening assessment DEPRESSION SCREENING Start: 08-22-2022 COVID-19 VACCINE (6 - Moderna series) COVID-19 VACCINE (6 - Moderna series) Start: 07-17-2022 ADVANCE DIRECTIVE DISCUSSION ADVANCE DIRECTIVE DISCUSSION Start: 07-17-2022 DEPRESSION ASSESSMENT DEPRESSION ASSESSMENT Start: 05-03-2022 Adult depression screening assessment DEPRESSION SCREENING Start: 05-03-2022 End: 07-03-2022 CBC W Auto Differential panel - Blood CBC + DIFF Lab Routine Malignant neoplasm of prostate (HCC) Expected: 05/03/2022, Expires: 07/03/2022 [facility] Work Phone: Comment on above: Expected: 05/03/2022, Expires: 2 Start: 05-03-2022 End: 07-03-2022 Comprehensive metabolic 2000 panel - Serum or Plasma COMP METABOLIC PANEL Lab Routine Malignant neoplasm of prostate (HCC) Expected: 05/03/2022, Expires: 07/03/2022 [facility] Work Phone: Comment on above: Expected: 05/03/2022, Expires: 2 Start: 05-03-2022 End: 07-03-2022 Prostate specific Ag [Mass/volume] in Serum or Plasma PSA/PROSTSPECAG DIAG Lab Routine Malignant neoplasm of prostate (HCC) Expected: 05/03/2022, Expires: 07/03/2022 [facility] Work Phone: Comment on above: Expected: 05/03/2022, Expires: 2 Start: 03-17-2022 Influenza vaccination Start: 11-02-2021 End: 01-02-2022 CBC W Auto Differential panel - Blood CBC + DIFF Lab Routine Malignant neoplasm of prostate (HCC) Expected: 11/02/2021, Expires: 01/02/2022 [facility] Work Phone: Comment on above: Expected: 11/02/2021, Expires: 2 Start: 11-02-2021 End: 01-02-2022 Comprehensive metabolic 2000 panel - Serum or Plasma COMP METABOLIC PANEL Lab Routine Malignant neoplasm of prostate (HCC) Expected: 11/02/2021, Expires: 01/02/2022 [facility] Work Phone: Comment on above: Expected: 11/02/2021, Expires: 2 Start: 09-14-2021 COVID-19 VACCINE (5 - Booster) COVID-19 VACCINE (5 - Booster) Start: 08-17-2021 COVID-19 VACCINE (4 - Booster for Moderna series) COVID-19 VACCINE (4 - Booster for Moderna series) Start: 07-17-2021 ADVANCE DIRECTIVE DISCUSSION ADVANCE DIRECTIVE DISCUSSION Start: 07-17-2021 DEPRESSION ASSESSMENT DEPRESSION ASSESSMENT Start: 02-22-2021 COVID-19 VACCINE (3 - Booster for Moderna series) COVID-19 VACCINE (3 - Booster for Moderna series) Start: 06-07-2015 PNEUMOVAX AGE 65 AND OVER WITH 5YR LOOKBACK (#1) PNEUMOVAX AGE 65 AND OVER WITH 5YR LOOKBACK (#1) Start: 06-20-2013 Urine microalbumin profile DTAP,TDAP,TD (1 - Tdap) Start: 08-22-2012 SHINGRIX VACCINE (2 of 3) SHINGRIX VACCINE (2 of 3) [facility] Start: 2006 RSV Vaccine (1 - 1-dose 60+ series) RSV Vaccine (1 - 1-dose 60+ series) Start: 02-14-1996 SHINGRIX VACCINE (1 of 2) SHINGRIX VACCINE (1 of 2) [facility] Start: 1991 COLOGUARD (FIT-DNA) COLOGUARD (FIT-DNA) Start: 1991 Colonoscopy COLONOSCOPY Start: 1991 COLORECTAL CANCER SCREENING COLORECTAL CANCER SCREENING Start: [address] COLONOGRAPHY Start: 1991 DIABETES SCREEN DIABETES SCREEN Start: 1991 FECAL OCCULT BLOOD FECAL OCCULT BLOOD Start: 1991 SIGMOIDOSCOPY SIGMOIDOSCOPY Start: 1981 LIPID SCREEN LIPID SCREEN Start: 02-14-1964 Anxiety Screening Anxiety Screening Start: 02-14-1964 Depression Screening Depression Screening Start: 02-14-1964 HEPATITIS C SCREENING HEPATITIS C SCREENING Start: 02-14-1964 Hepatitis C screening Hepatitis C Screening Dermatopathology exam Dermatopat hology exam Pathology and Cytology Timed Neoplasm of unspecified behavior of bone, soft tissue, and skin Release Upon Ordering for 1 Occurrences starting 08/28/2023 [facility] Work Phone: Comment on above: Release Upon Ordering for 1 Occurrences starting 08/28/2023 MR Cervical spine WO contrast [facility] US Extremity [facility] Immunizations Immunization Date Immunization Notes Care Provider Iris quinonez 03-26-2024 influenza, high dose seasonal, preservative-free [facility] 05-01-2023 influenza virus vaccine, unspecified formulation [facility] 05-01-2023 influenza, high dose seasonal, preservative-free Jamar Fall Other 04-28-2022 influenza nasal, unspecified formulation [facility] Work Phone: 04-28-2022 influenza, high-dose , quadrivalent vaccine (FLUZONE HIGH DOSE QUADRIVALENT) [facility] Work Phone: 04-28-2022 influenza, high dose seasonal, preservative-free Jamar Fall Other 04-28-2022 influenza virus vaccine, unspecified formulation [facility] Work Phone: [facility] 04-21-2022 COVID-19 booster vaccine, age 12+ yr, bivalent (MODERNA) [facility] Work Phone: Comment on above: Result Comment: 2023: [id number] 01-21-2022 COVID-19 Vaccine Moderna - Documentation Purposes Only Jamar Juan David Other Comment on above: Result Comment: 2023: [id number] 05-17-2021 COVID-19 Vaccine Moderna - Documentation Purposes Only Jamar Juan David Other Comment on above: Result Comment: 2023: [id number] 04-22-2021 influenza virus vaccine, split virus (incl. purified surface antigen) Jamar Fall Other 04-22-2021 influenza virus vaccine, unspecified formulation [facility] 04-16-2021 influenza nasal, unspecified formulation Marco A Esqueda MD Work Phone: 04-16-2021 influenza virus vaccine, unspecified formulation Anthony SCRUGGS [facility] 09-22-2020 COVID-19 Vaccine Moderna - Documentation Purposes Only Jamar Fall Other 08-26-2020 SARS-CoV-2 (COVID-19 ) Ad26 vaccine, recombinant Anthony SCRUGGS [facility] 08-24-2020 COVID-19 original vaccine, full dose, monovalent (MODERNA) [facility] Work Phone: 07-17-2020 SARS-CoV-2 (COVID-19 ) mRNA-1273 vaccine Anthony SCRUGGS [facility] Comment on above: Result Comment: pt d oes not know the dates but states that he is fully vaccinated 04-23-2020 influenza virus vaccine, split virus (incl. purified surface antigen) Jamar Fall Other 04-23-2020 influenza virus vaccine, unspecified formulation [facility] 04-22-2019 influenza virus vaccine, split virus (incl. purified surface antigen) Jamar Fall Other 04-22-2019 influenza virus vaccine, unspecified formulation [facility] 04-16-2019 influenza nasal, unspecified formulation Marco A Esqueda MD Work Phone: 08-20-2018 zoster vaccine recombinant Marco A Esqueda MD Work Phone: 06-11-2018 zoster vaccine recombinant Marco A Esqueda MD Work Phone: 04-16-2018 influenza nasal, unspecified formulation Marco A Esqueda MD Work Phone: 03-27-2018 AS03 adjuvant [facility] [facility] Work Phone: 03-27-2018 influenza nasal, unspecified formulation [facility] Work Phone: 03-27-2018 influenza virus vaccine, split virus (incl. purified surface antigen) Jamar Fall Other [place] [facility] Other 03-27-2018 influenza virus vaccine, unspecified formulation Anthony KAEL [facility] 03-27-2018 Seasonal trivalent influenza vaccine, adjuvanted, preservative free Marco A Esqueda MD Work Phone: 06-12-2017 pneumococcal polysaccharide vaccine, 23 valent Marco A Esqueda MD Work Phone: 06-01-2017 pneumococcal polysaccharide vaccine, 23 valent Jamar Fall Other 06-01-2017 Prevnar 20 Jamar Fall Other [facility] 05-31-2017 influenza nasal, unspecified formulation [facility] Work Phone: 05-31-2017 influenza virus vaccine, unspecified formulation Anthony SCRUGGS [facility] 05-31-2017 influenza, injectabl e, quadrivalent, preservative free Marco A Esqueda MD Work Phone: 04-03-2017 influenza nasal, unspecified formulation [facility] Work Phone: 04-03-2017 influenza virus vaccine, split virus (incl. purified surface antigen) Jamar Fall Other [facility] Other 04-03-2017 influenza virus vaccine, unspecified formulation Anthony SCRUGGS [facility] 04-03-2017 influenza, high dose seasonal, preservative-free Marco A Esqueda MD Work Phone: 03-23-2017 influenza nasal, unspecified formulation Marco A Esqueda MD Work Phone: 04-01-2016 influenza virus vaccine, split virus (incl. purified surface antigen) Jamar Fall Other 04-01-2016 influenza virus vaccine, unspecified formulation [facility] 03-31-2016 influenza nasal, unspecified formulation Marco A Esqueda MD Work Phone: 05-11-2015 influenza nasal, unspecified formulation Marco A Esqueda MD Work Phone: 05-11-2015 influenza, seasonal, injectable, preservative free [facility] Work Phone: 05-11-2015 pneumococcal conjuga te vaccine, 13 valent Marco A Esqueda MD Work Phone: 04-29-2015 pneumococcal polysaccharide vaccine, 23 valent Marco A Esqueda MD Work Phone: 06-09-2014 influenza nasal, unspecified formulation [facility] Work Phone: 06-09-2014 influenza, seasonal, injectable, preservative free Marco A Esqueda MD Work Phone: 06-19-2013 diphtheria, tetanus toxoids and acellular pertussis vaccine, unspecified formulation Marco A Esqueda MD Work Phone: 06-19-2013 tetanus and diphther ia toxoids, not adsorbed, for adult use Marco A Esqueda MD Work Phone: 05-23-2013 influenza nasal, unspecified formulation Marco A Esqueda MD Work Phone: 04-24-2013 tetanus and diphther ia toxoids, adsorbed, preservative free, for adult use (5 Lf of tetanus toxoid and 2 Lf of diphtheria toxoid) Jamar Fall Other 06-27-2012 zoster vaccine, live Marco A lake MD Work Phone: 06-11-2012 influenza nasal, unspecified formulation Marco A Esqueda MD Work Phone: 06-02-2011 influenza nasal, unspecified formulation Marco A Esqueda MD Work Phone: 06-23-2010 pneumococcal polysaccharide vaccine, 23 valent Jamar Fall Other 06-07-2010 pneumococcal polysaccharide vaccine, 23 valent Marco A Esqueda MD Work Phone: 06-07-2010 pneumococcal vaccine , unspecified formulation Marco A Esqueda MD Work Phone: 05-28-2010 influenza nasal, unspecified formulation Marco A Esqueda MD Work Phone: 01-14-2010 pneumococcal polysaccharide vaccine, 23 valent Jamar Fall Other 05-25-2009 influenza nasal, unspecified formulation Marco A Esqueda MD Work Phone: 06-09-2008 influenza nasal, unspecified formulation Marco A Esqueda MD Work Phone: 07-23-2003 influenza virus vaccine, whole virus Marco A Esqueda MD Work Phone: 01-14-2003 diphtheria, tetanus toxoids and acellular pertussis vaccine, unspecified formulation Jamar Fall Other 01-10-2003 TD(adult) unspecifie d formulation Marco A Esqueda MD Work Phone: 07-03-2002 influenza nasal, unspecified formulation Marco A Esqueda MD Work Phone: Payers Date Payer Category Payer Private Health Insurance MMO MED ICARE SUPPLEMENT [id number] 2019 Unknown MMO MMO MEDICARE SUPPLEMENT [id number] 2019-Present [phone] [address] [place] [address] Indemnity [id number] 2019 Unknown [id number] 2011 Medicare MEDICARE MEDICAR E A AND B [id number] 2011-Present [phone] [address] [address] [place] [address] Medicare [id number] 2011 Medicare [id number]. [id number] 1959 Medicare [id number] 1959 Self-pay 1959 Unknown [id number] 2.16.840.1.298732.19 1946 Unknown [id number] 2.16.840.1.516479.3.579.2. 593 1946 Unknown [id number] 2.16.840.1.030880.3.579.2. 593 1946 Unknown [id number] 2.16.840.1.996716.3.579.2. 593 1946 Unknown [id number] 2.16.840.1.733459.3.579.2. 593 1946 Unknown [id number] 2.16.840.1.455168.3.579.2. 593 1946 Unknown [id number] 2.16.840.1.649141.3.579.2. 1259 1946 Unknown [id number] 2.16.840.1.792217.3.579.2. 1259 1946 Unknown [id number] 2.16.840.1.356968.3.579.2. 1259 1946 Unknown [id number] 2.16.840.1.246258.3.579.2. 1259 1946 Unknown [id number] 2.16.840.1.062043.3.579.2. 1259 1946 Unknown [id number] 2.16.840.1.537468.3.579.2. 727 1946 Unknown [id number] 2.16.840.1.423169.3.579.2. 727 1946 Unknown [id number] 2.16.840.1.018891.3.579.2. 727 1946 Unknown [id number] 2.16.840.1.427409.3.579.2. 727 1946 Unknown [id number] 2.16.840.1.999030.3.579.2. 196 1946 Unknown [id number] 2.16.840.1.730159.3.579.2. 196 Unknown [id number] 2.16.840.1.185692.3.579.2. 593 Unknown [id number] 2.16.840.1.078262.3.579.2. 593 Unknown [id number] 2.16.840.1.663431.3.579.2. 593 Social History Date Type Detail Facility Start: 11-08-2021 End: 08-11-2022 Tobacco smoking status NHIS Never smoked tobacco Start: 10-25-2021 End: 11-02-2023 Alcohol intake Current drinker of alcohol (finding) Start: 08-19-2014 History SDOH Alcohol Comment 1 day/wk Start: 1945 Sex Assigned At Not on file C [facility] Start: 10-18-2021 End: 05-12-2022 Exposure to SARS-CoV-2 (event) Not sure Tobacco smoking status Never [facility] Start: 02-02-2023 End: 01-31-2024 Sex Assigned At Male [facility] Start: 1945 [facility] Start: 01-12-2018 End: 08-11-2022 Tobacco use and exposure Smokeless tobacco non-user Start: 02-02-2023 End: 01-31-2024 History of Social function Start: 02-11-2022 Gender identity Identifies as male gender (finding) Start: 02-11-2022 Sexual orientation Heterosexual (ce coburn) How often to you hav e a [...] status NHIS Ex-smoker (finding) [facility] Start: 09-02-2024 Sex Male (finding) [facility] NEGATED: Highlighted rowStart: ARPITA History of tobacco use Passive smoker Medical Equipment Procedure Code Equipment Code Equipment Origin al Text Equipment Identifier Dates Start: 10-26-2021 End: 05-12-2022 Comment on above: 1 Each once daily. T o test blood sugars 1 Each once daily. T o test blood sugar Blood Sugar Diagnostic (Contour Next Test Strips) strip Start: 10-10-2023 Lancets (Lancets,Thin) [facility] Start: 09-08-2023 Blood Sugar Diagnostic (Contour Next Test Strips) strip Start: 09-08-2023 End: 10-10-2023 Blood Sugar Diagnostic (Contour Next Test Strips) strip Start: 10-10-2023 Lancets (Lancets,Thin) [facility] Start: 09-08-2023 Blood Sugar Diagnostic (Contour Next Test Strips) strip Start: 09-08-2023 End: 10-10-2023 Blood Sugar Diagnostic (Contour Next Test Strips) strip Start: 10-10-2023 Lancets (Lancets,Thin) [facility] Start: 09-08-2023 Blood Sugar Diagnostic (Contour Next Test Strips) strip Start: 09-08-2023 End: 10-10-2023 Functional Status Date Assessment Result Facility 04-19-2024 Functional Status N/A [facility] 10-20-2023 Functional Status N/A [facility] 04-17-2023 Functional Status N/A [facility] 05-13-2022 Functional Status N/A [facility] 08-19-2014 Are you deaf, or do you have serious difficulty hearing No 08/19/2014 10:35 AM Santiago Mills LPN No 08-19-2014 Are you blind, or do you have serious difficulty seeing, even when wearing glasses Yes 08/19/2014 10:35 AM CRISTIANA Rivas chaz Krueger LPN Yes 08-19-2014 Do you have serious difficulty walking or climbing stairs No 08/19/2014 10:35 AM CRISTIANA Rivas Santiago Krueger LPN No 08-19-2014 Do you have difficul ty dressing or bathing No 08/19/2014 10:35 AM Santiago Mills LPN No 08-19-2014 Because of a physica l, mental, or emotional condition, do you have difficulty doing errands alone such as visiting a physician's office or shopping No 08/19/2014 10:35 AM Santiago Mills LPN No Mental Status Date Assessment Result Facility 08-19-2014 Because of a physica l, mental, or emotional condition, do you have serious difficulty concentrating, remembering, or making decisions No 08/19/2014 10:35 AM Santiago Mills LPN No Clinical Notes 07-17-2014 to 11-06-2024 Christo Howard APRN.BUSINESS DEVELOPMENT REPRESENTATIVE - 08/07/2024 10:42 AM ESTTelephone Encounter - Josemanuel Ortiz - 07/25/2024 8:23 AM ESTTelephone Encounter - Josemanuel Ortiz - 07/25/2024 8:23 AM EST Note Date & Type Note Facility 11-06-2024 Note HNO ID: [id number] Author: MARCO A ESQUEDA MD Service: ? Author Type: Physician Type: Progress Notes Filed: 11/07/2024 14:08 Note Text: PATIENT NAME: Pablo Felix DATE: 11/07/2024 PRIMARY CARE PHYSICIAN: Dr. Jamar Fall OTHER PHYSICIANS: Dr. Anthony Scruggs, Dr. Khan, [facility] Cardiology Portions of this encounter note have been copied from the note from 08/08/2024 and has been updated where appropriate, and reflect my current medical decision making from today. CC: This is a 79 year old male with metastatic prostate cancer, seen for scheduled follow-up. INTERIM HISTORY: Since the patient's last visit here he has had no significant medical changes. He remains on Xtandi 160 mg daily which he is tolerating. He also receives Lupron every [address] Scruggs, last given 10/07/2024. His only new complaint is intermittent diarrhea. Over the past several months the patient has noticed loose stools which appear to be related to diet. He suspects lactose intolerance. By cutting back on dairy and taking OTC meds (Lactaid) his diarrhea has improved. No other GI symptoms. Denies any bone pain. Denies difficulties with urination. Despite the above he feels well overall. MEDICATIONS: Current Outpatient Medications Medication Sig enzalutamide (XTANDI) 40 mg tablet Take 4 tablets (160 mg) by mouth once daily. Calcium Citrate-Vitamin D3 200 mg-6.25 mcg (250 unit) tab Take 2 tablets by mouth once daily. metoprolol succinate ER (TOPROL XL) 25 mg 24 hr tablet Take by mouth. Mbzviovoemope-Hsklzapv-Fyxocw (MULTIVITAMIN 50 PLUS) tab Take 1 tablet [...] paralysis, seizures or tremors. PHYSICAL EXAM: BP 131/56 Pulse 81 Temp 36.3 ?C (97.4 ?F) (Temporal) Resp 16 Ht 167.6 cm (5' 5.98 ) Wt 92.5 kg (203 lb 14.8 oz) SpO2 99% BMI 32.93 kg/m? ECOG PS: 0-1 General: Alert, oriented x 3. NAD. Non-toxic appearing. Well-nourished. HEENT: No scleral icterus. Heart: HRR s1s2 Lungs: Lungs CTA, no wheezing, rales, rhonchi or crackles ,non-labored breathing. Abdominal: Abd rounded but soft, NT, ND. Extremities: No edema or cyanosis. Skin: No rashes, bruising, or petechiae. Neuro: Non-focal exam without deficits. 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 Left base margin positive for neoplasm. Seminal vesicles with no diagnostic abnormality. 2 resected lymph nodes negative for neoplasm. LABS: Hemoglobin (g/dL) Date Value 10/31/2024 12.4 05/08/2018 12.8 Hematocrit (%) Date Value 10/31/2024 36.0 05/08/2018 36.8 WBC (k/uL) Date Value 10/31/2024 6.99 05/08/2018 5.63 Platelet Count (k/uL) Date Value 10/31/2024 204 05/08/2018 168 PSA 01/21/2019 <0.13 09/26/2019 0.09 06/17/2020 0.43 09/07/2020 0.84 05/06/2021 1.09 07/19/2021 1.58 10/25/2021 2.64 6/1 (more content not included)... [facility] 10-07-2024 Note Patient Education Oncology Hormone Suppression [...] cancer. Where to find more information ??? [employer]: www.cancer.org ??? National Cancer Spencer: www.cancer.gov Contact a health care provider if: [...] confused. ??? You (more content not included)... [facility] 08-07-2024 Note HNO ID: [id number] Author: CHRISTO HOWARD APRN.ALEXA Service: ? Author Type: Nurse Practitioner Type: Progress Notes Filed: 08/08/2024 12:09 Note Text: PATIENT NAME: Pablo Felix DATE: 08/08/2024 PRIMARY CARE PHYSICIAN: Dr. Jamar Fall OTHER PHYSICIANS: Dr. Anthony Scruggs, Dr. Khan, [facility] Cardiology Portions of this [...] mg 24 hr tablet Take by mouth. Foefitgbviody-Gjnnednr-Ybowsf (MULTIVITAMIN 50 PLUS) tab Take 1 tablet [...] Radical retropubic prostatectomy and bilateral pelvic lymphadenectomy ([facility]) Poorly differentiated prostatic adenocarcinoma of left [...] 1.58 10/25/2021 2.6 (more content not included)... [facility] 08-07-2024 History of Present illness Narrative PATIENT NAME: Pablo Felix DATE: 08/08/2024 PRIMARY CARE PHYSICIAN: Dr. Jamar Fall OTHER PHYSICIANS: Dr. Anthony Scruggs, Dr. Khan, [facility] Cardiology Portions of this [...] mg 24 hr tablet Take by mouth. Rvmxbjtqwnzhj-Qafidfzx-Wowmyc (MULTIVITAMIN 50 PLUS) tab Take 1 tablet [...] Radical retropubic prostatectomy and bilateral pelvic lymphadenectomy ([facility]) Poorly differentiated prostatic adenocarcinoma of left [...] 08/01/2024 0.19 RADIOLOGY/OTHER STUDIES: 11/05/2021 CT chest/abdomen/pelvis ([facility]) Several sclerotic lesions consistent with metastatic disease. No evidence of visceral organ involvement or lymphadenopathy. 11/05/2021 Bone scan ([facility]) Multifocal osseous metastasis including the left femur at the lesser trochanter, right pubis symphysis, multiple ribs bilaterally. 01/22/2018 Nuclear bone scan ([facility]) New focal increased activity left frontal bone, left T8 vertebral body. 01/22/2018 MRI pelvis ([facility]) 4.5 cm area of T2 signal in the prostate bed. 07/24/2014 CT abdomen/pelvis [place] Diffuse prostatic enlargement with indentation of the [...] consistent with stage IIIC (pT2b, N0, M0), [place] 5+4 equal 9. 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 Stable on current medications. [...] PCP with CT scan monitoring. Christo Howard APRN.BUSINESS DEVELOPMENT REPRESENTATIVE CC: Dr. Anthony Scruggs I spent a total of 30 minutes on the date of the service which included preparing to see the patient, gzxz-xd-cbkb patient care, completing clinical documentation, obtaining and/or reviewing separately obtained history, performing a medically appropriate examination, counseling and educating the patient/family/caregiver, ordering medications, tests, or procedures, independently interpreting results (not separately reported), and communicating results to the patient/family/caregiver. documented in this encounter 07-25-2024 Telephone encounter Note Patient on lab schedule 08/01/24 for lab only prior to RV. Please review and place needed order. Thank you, Gabi Ortiz MLT 07-25-2024 Miscellaneous Notes Patient on lab schedule 08/01/24 for lab only prior to RV. Please review and place needed order. Thank you, Gabi Ortiz MLT documented in this encounter 06-10-2024 Evaluation note Diagnosis Onset Date Resolution [...] diabetes mellitus with hyperglycemia acute August 9:28am [facility] Work Phone: [phone] 536-891910-23-2024 Telephone encounter Note* Telephone Encounter - Aida Luo RPh - 05/08/2024 8:53 AM EDT This prescription confirms Pablo' re-enrollment in the Xtandi free drug program for 2024. Thank you Josh Luo PharmD, MARENOP Work Phone: [phone]) 588-751210-23-2024 Miscellaneous Notes* Telephone Encounter - Aida Luo RPh - 05/08/2024 8:53 AM EDT This prescription confirms Pablo' re-enrollment in the Xtandi free drug program for 2024. Thank you Josh Luo PharmD, BCOP documented in this encounter10-23-2024 NoteHNO ID: [id number] Author: MARCO A ESQUEDA MD Service: ? Author Type: Physician Type: Progress Notes Filed: 05/10/2024 07:40 Note Text: PATIENT NAME: Pablo Felix DATE: 05/09/2024 PRIMARY CARE PHYSICIAN: Dr. Jamar Fall OTHER PHYSICIANS: Dr. Anthony Scruggs, Dr. Khan, [facility] Cardiology Portions of this [...] mg 24 hr tablet Take by mouth. Psafhvjzeqxal-Gvhmpmez-Emrddu (MULTIVITAMIN 50 PLUS) tab Take 1 tablet [...] Radical retropubic prostatectomy and bilateral pelvic lymphadenectomy ([facility]) Poorly differentiated prostatic adenocarcinoma of left [...] 08/11/2022 0.11 10/25/2022 0.1 (more content not included)...[facility]10-23-2024 History of Present illness Narrative* Marco A Esqueda MD - 05/08/2024 8:13 AM EDT PATIENT NAME: Pablo Felix DATE: 05/09/2024 PRIMARY CARE PHYSICIAN: Dr. Jamar Fall OTHER PHYSICIANS: Dr. Anthony Scruggs, Dr. Khan, [facility] Cardiology Portions of this [...] mg 24 hr tablet Take by mouth. Tudkleogdkfgk-Kexmynih-Srpaft (MULTIVITAMIN 50 PLUS) tab Take 1 tablet [...] Radical retropubic prostatectomy and bilateral pelvic lymphadenectomy ([facility]) Poorly differentiated prostatic adenocarcinoma of left [...] 05/03/2024 0.18 RADIOLOGY/OTHER STUDIES: 11/05/2021 CT chest/abdomen/pelvis ([facility]) Several sclerotic lesions consistent with metastatic disease. No evidence of visceral organ involvement or lymphadenopathy. 11/05/2021 Bone scan ([facility]) Multifocal osseous metastasis including the left femur at the lesser trochanter, right pubis symphysis, multiple ribs bilaterally. 01/22/2018 Nuclear bone scan ([facility]) New focal increased activity left frontal bone, left T8 vertebral body. 01/22/2018 MRI pelvis ([facility]) 4.5 cm area of T2 signal in the prostate bed. 07/24/2014 CT abdomen/pelvis ([facility] Diffuse prostatic enlargement with indentation of the bladder base. Incidental 2.5 x 1 cm exophytic hypodense lesion adjacent to the pancreatic body. ASSESSMENT/PLAN: 1. Metastatic prostate cancer (HCC) - ICD9: 185, ICD10: C61 (primary diagnosis) The patient was diagnosed with early-stage high-grade prostate cancer in June 2014 (TRUS [id number]/02/2014). He underwent a radical prostatectomy on 11/05/2014. Pathology consistent with stage IIIC (pT2b, N0, M0), [place] 5+4 equal 9. 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 Stable on current medications. [...] CC: Dr. Anthony Scruggs documented in this encounter10-04-2024 Hospital Discharge instructions Patient Education 04/19/2024 08:45:03 [...] under a microscope. This is called the [place] score and the total score can range from 6 10, indicating how likely it is that the cancer will spread (metastasize) to other parts of the body. The higher the score, the greater thelikelihood that the cancer will spread. Lucrecia 6 or lower: This indicates that the cancer cells look similar to normal prostate cells (well differentiated). [place] 7: This indicates that the cancer cells look somewhat similar to normal prostate cells (moderately differentiated). [place] 8, 9, or 10: This indicates that [...] stress of having cancer. General instructions Take bmpy-bwd-wazftav and prescription medicines only as told by your health care provider. If you have to go to the hospital, notify your cancer specialist (oncologist). Keep all follow-up visits. This is important. Where to find more information [employer]: www.cancer.org [place] Society of Clinical Oncology: www.cancer.net National Cancer Spencer: www.cancer.gov Contact a health care provider if: [...] provider. Document Revised: 09/29/2021 Document Reviewed: 09/29/2021 [employer] Patient Education 2023 [employer]. Follow Up Care 10/20/2023 09:58:12 With:KAEL JAMES, Anthony Lee, URL Address: [address] [place] [phone]- When: Unknown [facility] 10-04-2024 NotePatient Education Oncology Prostate Cancer [...] thelikelihood that the cancer will spread. ? [place] 6 or lower: This indicates that the [...] implanted intothe prostate gla (more content not included)...[facility]09-16-2024 Telephone encounter Note* Telephone Encounter - Aida Luo RPh - 04/01/2024 3:59 PM EDT Recd phone call from [facility] that they are unable to obtain the Xtandi 80mg tablets a thistime and requested a script for the 40 mg dosing. Order pending Josh Luo PharmD, MARENOP Work Phone: [phone] Miscellaneous Notes* Telephone Encounter - Aida Luo RPh - 04/01/2024 3:59 PM EDT Recd phone call from [facility] that they are unable to obtain the Xtandi 80mg tablets a thistime and requested a script for the 40 mg dosing. Order pending Josh Luo PharmD, BCRUBEN documented in this encounter09-13-2024 NoteCoronary artery disease is stable, no concerning symptoms currently overall is doing well he is planning bilateral carpal tunnel surgery soon with Dr. Charlton. Continue GDMT-continue aspirin, Lipitor, metoprolol, and lisinopril continue risk factor modifications- heart healthy diet, regular exercise as tolerated and continue all medications.[facility] 03-29-2024 NoteHypertension is well-controlled at 127/51 Continue lisinopril/hydrochlorothiazide and metoprolol. [facility]al function normalUnAC[facility]09-13-2024 NoteLipid abnormalities are stable continue Lipitor 40 mg daily lipid profile is well-controlled and liver function is normalUnAC[facility] 03-29-2024 NoteReviewed echocardiogram from July 08 moderate aortic stenosis noted and reviewed echo with patient and his No concerning symptoms at this time patient would like symptoms including palpitations, lightheaded dizziness, syncope, chest pain, worsening shortness of breath and he voiced understanding Monitor with echocardiogramUnACMC Healthcare System09-13-2024 Note RCRI=1 points Class II Risk 6.0 % 30-day risk of , [place], or cardiac arrest From a cardiac perspective pt may proceed with carpal tunnel surgery, he is a moderate risk for a low risk surgery. She may hold aspirin 5-7 days prior and resume post op. Please monitor hemodynamics carefully and prevent any major fluid shifts.[facility]09-13-2024 NotePt is here for surgery clearance. Pt denies chest pain, sob, palpatations Review of Systems Musculoskeletal: Positive for arthritis, back pain, joint pain and myalgias. All other systems reviewed and are negative.[facility] 03-29-2024 NoteUTP CARDIOLOGY PROGRESS NOTE HPI: [...] AV stenosis and regur (more content not included)...[facility]07-19-2024 Instructions* Patient Instructions* Lynne Alarcon APRN.BUSINESS DEVELOPMENT REPRESENTATIVE - 02/02/2024 11:37 AM EDT Possible signs [...] troubles swallowing, increasing confusion documented in this encounter07-19-2024 History of Present illness Narrative* Lynne Alarcon APRN.CNP - 02/02/2024 11:30 AM EDT PATIENT NAME: Pablo Felix DATE: February 02, 2024 PRIMARY CARE PHYSICIAN: Dr. Jamar Fall OTHER PHYSICIANS: Dr. Anthony Scruggs, Dr. Khan, [facility] Cardiology This note was [...] mg 24 hr tablet Take by mouth. Jjolgmsxynsyv-Pgbnudir-Chvlcy (MULTIVITAMIN 50 PLUS) tab Take 1 tablet [...] Radical retropubic prostatectomy and bilateral pelvic lymphadenectomy ([facility]) Poorly differentiated prostatic adenocarcinoma of left [...] 01/25/2024 0.15 RADIOLOGY/OTHER STUDIES: 11/05/2021 CT chest/abdomen/pelvis ([facility]) Several sclerotic lesions consistent with metastatic disease. No evidence of visceral organ involvement or lymphadenopathy. 11/05/2021 Bone scan ([facility]) Multifocal osseous metastasis including the left femur at the lesser trochanter, right pubis symphysis, multiple ribs bilaterally. 01/22/2018 Nuclear bone scan ([facility]) New focal increased activity left frontal bone, left T8 vertebral body. 01/22/2018 MRI pelvis ([facility]) 4.5 cm area of T2 signal in the prostate bed. 07/24/2014 CT abdomen/pelvis [place] Diffuse prostatic enlargement with indentation of the bladder base. Incidental 2.5 x 1 cm exophytic hypodense lesion adjacent to the pancreatic body. ASSESSMENT/PLAN: 1. Metastatic prostate cancer (HCC) - ICD9: 185, ICD10: C61 (primary diagnosis) The patient was diagnosed with early-stage high-grade prostate cancer in June 2014 (TRUS [id number]/02/2014). He underwent a radical prostatectomy on 11/05/2014. [...] suppressed at <12. Bone scan obtained at [facility] 11/05/2021 revealed multiple bone metastases. 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 Stable on current medications. [...] up. Lynne Alarcon APRN.ALEXA Hematology/Oncology [facility] [phone] CC: Dr. Anthony Scruggs documented in this encounter07-19-2024 NoteHNO ID: [id number] Author: LYNNE ALARCON APRN.BUSINESS DEVELOPMENT REPRESENTATIVE Service: ? Author Type: Nurse Practitioner Type: Progress Notes Filed: 02/02/2024 11:37 Note Text: PATIENT NAME: Pablo Felix DATE: February 02, 2024 PRIMARY CARE PHYSICIAN: Dr. Jamar Fall OTHER PHYSICIANS: Dr. Anthony Scruggs, Dr. Khan, [facility] Cardiology This note was [...] mg 24 hr tablet Take by mouth. Vqbdblerbcecm-Yvprvfzs-Osmfpi (MULTIVITAMIN 50 PLUS) tab Take 1 tablet [...] Radical retropubic prostatectomy and bilateral pelvic lymphadenectomy ([facility]) Poorly differentiated prostatic adenocarcinoma of left [...] 06/17/2020 0.43 09/07/2020 0.84 (more content not included)...[facility] 11-02-2023 History of Present illness Narrative* Christo Howard APRN.BUSINESS DEVELOPMENT REPRESENTATIVE - 11/02/2023 9:28 AM EDT PATIENT NAME: Pablo Felix DATE: 11/02/2023 PRIMARY CARE PHYSICIAN: Dr. Jamar Fall OTHER PHYSICIANS: Dr. Anthony Scruggs, Dr. Khan, [facility] Cardiology Portions of this [...] mg 24 hr tablet Take by mouth. Ewhujigfqeghb-Oiouwmsl-Fvapmu (MULTIVITAMIN 50 PLUS) tab Take 1 tablet [...] Radical retropubic prostatectomy and bilateral pelvic lymphadenectomy ([facility]) Poorly differentiated prostatic adenocarcinoma of left [...] 10/29/2023 0.16 RADIOLOGY/OTHER STUDIES: 11/05/2021 CT chest/abdomen/pelvis ([facility]) Several sclerotic lesions consistent with metastatic disease. No evidence of visceral organ involvement or lymphadenopathy. 11/05/2021 Bone scan ([facility]) Multifocal osseous metastasis including the left femur at the lesser trochanter, right pubis symphysis, multiple ribs bilaterally. 01/22/2018 Nuclear bone scan ([facility]) New focal increased activity left frontal bone, left T8 vertebral body. 01/22/2018 MRI pelvis ([facility]) 4.5 cm area of T2 signal in the prostate bed. 07/24/2014 CT abdomen/pelvis ([facility] Diffuse prostatic enlargement with indentation of the bladder base. Incidental 2.5 x 1 cm exophytic hypodense lesion adjacent to the pancreatic body. ASSESSMENT/PLAN: 1. Metastatic prostate cancer (HCC) - ICD9: 185, ICD10: C61 (primary diagnosis) The patient was diagnosed with early-stage high-grade prostate cancer in June 2014 (TRUS [id number]/02/2014). He underwent a radical prostatectomy on 11/05/2014. [...] suppressed at <12. Bone scan obtained at [facility] 11/05/2021 revealed multiple bone metastases. 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 Stable on current medications. [...] which included preparing to see the patient, cdcr-mu-yoje patient care, completing clinical documentation, obtaining and/or reviewing separately obtained history, performing a medically appropriate examination, counseling and educating the pat ient/family/caregiver, ordering medications, tests, or procedures, independently interpreting results (not separately reported), and communicating results to the patient/family/caregiver. documented in this encounter04-05-2024 Hospital Discharge instructions Patient Education 10/20/2023 09:54:58 [...] under a microscope. This is called the [place] score and the total score can range [...] similar to normal prostate cells (moderately differentiated). [place] 8, 9, or 10: This indicates that [...] stress of having cancer. General instructions Take egqd-bzo-wvdrnvb and prescription medicines only as told by your health care provider. If you have to go to the hospital, notify your cancer specialist (oncologist). Keep all follow-up visits. This is important. Where to find more information [employer]: www.cancer.org [place] Society of Clinical Oncology: www.cancer.net National Cancer Spencer: www.cancer.gov Contact a health care provider if: [...] provider. Document Revised: 09/29/2021 Document Reviewed: 09/29/2021 EpiVax Patient Education 2022 [employer]. Follow Up Care 04/17/2023 09:25:02 With:KAEL JAMES, Anthony Lee, URL Address: [address] [place] [address] When: Unknown [facility] 02-12-2024 History of Present illness Narrative* Long Boo, CARPORT ERECTOR-BUSINESS DEVELOPMENT REPRESENTATIVE - 08/28/2023 11:25 AM EST Images from [...] limited to risks of scarring, darker or beef cattle specialist pigmentary changes, recurrence, incomplete removal and infection. [...] biopsy results, 6 months documented in this encounterRay County Memorial [id number] Evaluation note* Encounter Date Diagnosis Assessment Notes [...] use, the patient reduces the risk for [place], CVA, HTN, cardiac dysrhythmias and sudden cardiac [...] retention cyst and frontal sinus mass benign [facility] Other 01-19-2024 Evaluation note* Encounter Date Diagnosis Assessment Notes Treatment Notes Treatment Clinical Notes Jul, Pancreatic mass (ICD-10 - K86.89) MRCP: 4cm mass - 2022 - previously completed EUS bx at [facility] - stable in size from 2021 [facility] Chief Complaint: Patient [...] should problems arise Bridger Mulligan MD, MPH, [facility], [facility], [facility] Interventional Cardiology Pager Email: [email or web address] Evaluation note* Encounter Date Diagnosis Assessment [...] ENT since scheduling appt for sinus mass [facility] Other 10-16-2023 Evaluation note* Encounter Date Diagnosis [...] malignant neoplasm of bone (ICD-10 - C79.51) [facility] Other 10-12-2023 History of Present illness Narrative* Christo Howard APRN.BUSINESS DEVELOPMENT REPRESENTATIVE - 04/27/2023 10:00 AM EDT PATIENT NAME: Pablo Felix DATE: 04/27/2023 PRIMARY CARE PHYSICIAN: Dr. Jamar Fall OTHER PHYSICIANS: Dr. Anthony Scruggs, Dr. Khan, [facility] Cardiology Portions of this [...] mg 24 hr tablet Take by mouth. Uyvrfnqglpkuu-Fsnrvxgh-Pgvnoo (MULTIVITAMIN 50 PLUS) tab Take 1 tablet [...] Radical retropubic prostatectomy and bilateral pelvic lymphadenectomy ([facility]) Poorly differentiated prostatic adenocarcinoma of left [...] 04/24/2023 0.12 RADIOLOGY/OTHER STUDIES: 11/05/2021 CT chest/abdomen/pelvis ([facility]) Several sclerotic lesions consistent with metastatic disease. No evidence of visceral organ involvement or lymphadenopathy. 11/05/2021 Bone scan ([facility]) Multifocal osseous metastasis including the left femur at the lesser trochanter, right pubis symphysis, multiple ribs bilaterally. 01/22/2018 Nuclear bone scan ([facility]) New focal increased activity left frontal bone, left T8 vertebral body. 01/22/2018 MRI pelvis ([facility]) 4.5 cm area of T2 signal in the prostate bed. 07/24/2014 CT abdomen/pelvis [place] Diffuse prostatic enlargement with indentation of the bladder base. Incidental 2.5 x 1 cm exophytic hypodense lesion adjacent to the pancreatic body. ASSESSMENT/PLAN: 1. Metastatic prostate cancer (HCC) - ICD9: 185, ICD10: C61 (primary diagnosis) The patient was diagnosed with early-stage high-grade prostate cancer in June 2014 (TRUS [id number]/02/2014). He underwent a radical prostatectomy on 11/05/2014. [...] suppressed at <12. Bone scan obtained at [facility] 11/05/2021 revealed multiple bone metastases. 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 Stable on current medications. [...] which included preparing to see the patient, jocp-mc-fewk patient care, completing clinical documentation, obtaining and/or reviewing separately obtained history, performing a medically appropriate examination, counseling and educating the pat ient/family/caregiver, ordering medications, tests, or procedures, independently interpreting results (not separately reported), and communicating results to the patient/family/caregiver. documented in this encounter10-03-2023 Evaluation note* Encounter Date Diagnosis Assessment Notes Treatment Notes Treatment Clinical Notes Apr, Pancreatic mass (ICD-10 - K86.89) [facility] Other [id number] Hospital Discharge instructions Patient Education 04/17/2023 09:18:19 [...] stress of having cancer. General instructions Take yyhd-sjh-jkcjyst and prescription medicines only as told by your health care provider. If you have to go to the hospital, notify your cancer specialist (oncologist). Keep all follow-up visits. This is important. Where to find more information [employer] Cancer [employer]: www.cancer.org [place] Society of Clinical Oncology: www.cancer.net National Cancer Spencer: www.cancer.gov Contact a health care provider if: [...] provider. Document Revised: 09/29/2021 Document Reviewed: 09/29/2021 E[employer]ax Patient Education 2022 [employer]. Follow Up Care 10/28/2022 08:37:57 With:KAEL JAMES, Anthony Lee, URL Address: [facility] [address], [place] [address]- [phone] When: Unknown Comments:6 mos w/ PSA (and possible Lupron) [facility] 09-27-2023 Evaluation note* Encounter Date Diagnosis Assessment Notes Treatment Notes Treatment Clinical Notes Mar, Pancreatic mass (ICD-10 - K86.89) [facility] Other 09-20-2023 Evaluation note* Encounter Date Diagnosis Assessment Notes Treatment Notes Treatment Clinical Notes Mar, Right upper quadrant abdominal pain (ICD-10 - R10.11) Diet instructions Lab to r/o acute infection, cholecystitis, pancreatitis GBUS vs CT abd based on results BLand, low fat diet Mar, Nausea (ICD-10 - R11.0) [place] , small/frequent feedings. Pepcid, Prilosec, Tums as [...] Microalbumin, Dilated eye exam and Foot exam [facility] Other 08-30-2023 Evaluation note* Encounter Date Diagnosis [...] use, the patient reduces the risk for [place], CVA, HTN, cardiac dysrhythmias and sudden cardiac [...] exercise for 30 minutes, 3-5 times weekly. [facility] Other 07-23-2023 Evaluation note* Encounter Date Diagnosis Assessment Notes Treatment Notes Treatment Clinical Notes Jan, Left bundle-branch block, unspecified (ICD-10 - I44.7) [facility] Other 07-20-2023 History of Present illness Narrative* Marco A Esqueda MD - 02/02/2023 7:38 AM EDT PATIENT NAME: Pablo Felix DATE: 02/02/2023 PRIMARY CARE PHYSICIAN: Dr. Jamar Fall OTHER PHYSICIANS: Dr. Anthony Scruggs, Dr. Khan, [facility] Cardiology Portions of this [...] mg 24 hr tablet Take by mouth. Asoicevgigemj-Pflzehxf-Dgsunj (MULTIVITAMIN 50 PLUS) tab Take 1 tablet [...] Radical retropubic prostatectomy and bilateral pelvic lymphadenectomy ([facility]) Poorly differentiated prostatic adenocarcinoma of left [...] 10/25/2022 0.13 RADIOLOGY/OTHER STUDIES: 11/05/2021 CT chest/abdomen/pelvis ([facility]) Several sclerotic lesions consistent with metastatic disease. No evidence of visceral organ involvement or lymphadenopathy. 11/05/2021 Bone scan ([facility]) Multifocal osseous metastasis including the left femur at the lesser trochanter, right pubis symphysis, multiple ribs bilaterally. 01/22/2018 Nuclear bone scan ([facility]) New focal increased activity left frontal bone, left T8 vertebral body. 01/22/2018 MRI pelvis ([facility]) 4.5 cm area of T2 signal in the prostate bed. 07/24/2014 CT abdomen/pelvis ([facility] Diffuse prostatic enlargement with indentation of the bladder base. Incidental 2.5 x 1 cm exophytic hypodense lesion adjacent to the pancreatic body. ASSESSMENT/PLAN: 1. Metastatic prostate cancer (HCC) - ICD9: 185, ICD10: C61 (primary diagnosis) The patient was diagnosed with early-stage high-grade prostate cancer in June 2014 (TRUS [id number]/02/2014). He underwent a radical prostatectomy on 11/05/2014. Pathology consistent with stage IIIC (pT2b, N0, M0), [place] 5+4 equal 9. Postop the patient's PSA [...] suppressed at <12. Bone scan obtained at [facility] 11/05/2021 revealed multiple bone metastases. 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 Stable on current medications. [...] CC: Dr. Anthony Scruggs documented in this encounter04-27-2023 History of Present illness Narrative* Christo Howard APRN.BUSINESS DEVELOPMENT REPRESENTATIVE - 11/10/2022 10:00 AM EDT PATIENT NAME: Pablo Felix DATE: 11/10/2022 PRIMARY CARE PHYSICIAN: Dr. Jamra Fall OTHER PHYSICIANS: Dr. Anthony Scruggs, Dr. Khan, [facility] Cardiology Portions of this [...] mg 24 hr tablet Take by mouth. Qbzgcnzvebjne-Vjzaosfv-Klpgll (MULTIVITAMIN 50 PLUS) tab Take 1 tablet [...] Radical retropubic prostatectomy and bilateral pelvic lymphadenectomy ([facility]) Poorly differentiated prostatic adenocarcinoma of left [...] PSA 0.13 RADIOLOGY/OTHER STUDIES: 11/05/2021 CT chest/abdomen/pelvis ([facility]) Several sclerotic lesions consistent with metastatic disease. No evidence of visceral organ involvement or lymphadenopathy. 11/05/2021 Bone scan ([facility]) Multifocal osseous metastasis including the left femur at the lesser trochanter, right pubis symphysis, multiple ribs bilaterally. 01/22/2018 Nuclear bone scan ([facility]) New focal increased activity left frontal bone, left T8 vertebral body. 01/22/2018 MRI pelvis ([facility]) 4.5 cm area of T2 signal in the prostate bed. 07/24/2014 CT abdomen/pelvis ([facility] Diffuse prostatic enlargement with indentation of the bladder base. Incidental 2.5 x 1 cm exophytic hypodense lesion adjacent to the pancreatic body. ASSESSMENT/PLAN: 1. Metastatic prostate cancer (HCC) - ICD9: 185, ICD10: C61 (primary diagnosis) The patient was diagnosed with early-stage high-grade prostate cancer in June 2014 (TRUS [id number]/02/2014). He underwent a radical prostatectomy on 11/05/2014. [...] suppressed at <12. Bone scan obtained at [facility] 11/05/2021 revealed multiple bone metastases. 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 Stable on current medications. [...] which included preparing to see the patient, yufg-dp-ddch patient care, completing clinical documentation, obtaining and/or reviewing separately obtained history, performing a medically appropriate examination, counseling and educating the pat ient/family/caregiver, ordering medications, tests, or procedures, independently interpreting results (not separately reported), and communicating results to the patient/family/caregiver. documented in this encounter03-03-2023 Evaluation note* Encounter Date Diagnosis Assessment Notes [...] injection w/ Kenalog, may increase BS slightly [facility] Other 02-24-2023 Evaluation note* Encounter Date Diagnosis [...] Diet and exercise with continued statin therapy. 24 Feb, 2023 GRADY (obstructive sleep apnea) (ICD-10 - G47.33) This patient is aware of the benefits associated with GRADY: With continued use, the patient reduces the risk for [place], CVA, HTN, cardiac dysrhythmias and sudden cardiac [...] reviewed and amended by provider signed below. [facility] Other 01-26-2023 History of Present illness Narrative* Marco A Esqueda MD - 08/11/2022 7:42 AM EST PATIENT NAME: Pablo Felix DATE: 08/11/2022 PRIMARY CARE PHYSICIAN: Dr. Jamar Fall OTHER PHYSICIANS: Dr. Anthony Scruggs, Dr. Khan, [facility] Cardiology Portions of this [...] mg 24 hr tablet Take by mouth. Ylhgpdiztchzy-Kysjvjtq-Cqmrtn (MULTIVITAMIN 50 PLUS) tab Take 1 tablet [...] Radical retropubic prostatectomy and bilateral pelvic lymphadenectomy ([facility]) Poorly differentiated prostatic adenocarcinoma of left [...] 08/11/2022 PSA RADIOLOGY/OTHER STUDIES: 11/05/2021 CT chest/abdomen/pelvis ([facility]) Several sclerotic lesions consistent with metastatic disease. No evidence of visceral organ involvement or lymphadenopathy. 11/05/2021 Bone scan ([facility]) Multifocal osseous metastasis including the left femur at the lesser trochanter, right pubis symphysis, multiple ribs bilaterally. 01/22/2018 Nuclear bone scan ([facility]) New focal increased activity left frontal bone, left T8 vertebral body. 01/22/2018 MRI pelvis ([facility]) 4.5 cm area of T2 signal in the prostate bed. 07/24/2014 CT abdomen/pelvis ([facility] Diffuse prostatic enlargement with indentation of the bladder base. Incidental 2.5 x 1 cm exophytic hypodense lesion adjacent to the pancreatic body. ASSESSMENT/PLAN: 1. Metastatic prostate cancer (HCC) - ICD9: 185, ICD10: C61 (primary diagnosis) The patient was diagnosed with early-stage high-grade prostate cancer in June 2014 (TRUS [id number]/02/2014). He underwent a radical prostatectomy on 11/05/2014. Pathology consistent with stage IIIC (pT2b, N0, M0), [place] 5+4 equal 9. Postop the patient's PSA [...] suppressed at <12. Bone scan obtained at [facility] 11/05/2021 revealed multiple bone metastases. 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 Stable on current medications. [...] CC: Dr. Anthony Scruggs documented in this encounter01-05-2023 NotePROCEDURE: XR SHOULDER LT 2V or > [...] Electronically authenticated by: CYNTHIA TORRES Date: 2022-07-21 15:46[facility]01-05-2023 Evaluation note* Encounter Date Diagnosis Assessment Notes Treatment Notes Treatment Clinical Notes Jul, Cervical spondylosis with radiculopathy (ICD-10 - M47.22) ROM exercises, heat/ice and Tylenol 1000mg tid. Initiated Tramadol w/ caution, no driving, may cause sedation. Jul, Acute pain of left shoulder (ICD-10 - M25.512) ROM exercises, Tylenol and Tramadol as needed. Jul, Annual physical exam (ICD-10 - Z00.00) [facility] Other 10-28-2022 Hospital Discharge instructions Patient Education [...] who: Are older than age 65. Are -Russian. Are obese. Have a family history of [...] cells. Follow these instructions at home: Take apto-dve-gxbahhs and prescription medicines only as told by [...] 07/03/2006 Document Revised: 06/15/2018 Document Reviewed: 03/13/2017 [employer] Patient Education 2019 [employer]. Follow Up Care 11/08/2021 14:14:20 With:KAEL JAMES, Anthony Lee, URL Address: [address] [place] [address] [place] [address]- When: Unknown [facility] 10-27-2022 Nurse Note* Sheela Toney - 05/12/2022 10:43 AM EDT AUA=2 documented in this encounter10-27-2022 History of Present illness Narrative* Zach Khan MD - 05/12/2022 10:41 AM EDT Radiation Oncology - Follow Up Note PATIENT NAME: Pablo Felix PATIENT DIAGNOSIS: Prostate adenocarcinoma, initial clinical stage II, initial PSA 1.07, biopsy [place] score 9(4,5), s/p prostatectomy for 11/05/14 pathologic stage IIIC [id number], [place] 9 (5, 4) now with rising PSA [...] Each once daily. To test blood sugar Qixsllzhoqcue-Llkyxnzs-Ipddte (MULTIVITAMIN 50 PLUS) tab Take 1 tablet [...] clinical stage II, initial PSA 1.07, biopsy [place] score 9(4,5), s/p prostatectomy for 11/05/14 pathologic stage IIIC [id number], [place] 9 (5, 4) withrising PSA, subsequently [...] Khan MD cc: Jamar Fall MD ([facility]) Portions of the above note extracted and edited from previous visit as well as active information included in the EMR. documented in this encounter10-17-2022 Miscellaneous Notes* Telephone Encounter - Sheela Toney - 05/02/2022 10:48 AM EDT Patient coming in on 05/12/22 for follow up with labs. Please add lab orders. Thanks, Sheela Toney MA documented in this encounter08-04-2022 History of Present illness Narrative* Marco A Esqueda MD - 02/17/2022 7:51 AM EDT PATIENT NAME: Pablo Felix DATE: 02/17/2022 PRIMARY CARE PHYSICIAN: Jamar Fall, OTHER PHYSICIANS: Dr. Anthony Scruggs, Dr. Khan, [facility] Cardiology Portions of this [...] Each once daily. To test blood sugar Hjbfusqavpeci-Fsapddcc-Vfmbcf (MULTIVITAMIN 50 PLUS) tab Take 1 tablet [...] Radical retropubic prostatectomy and bilateral pelvic lymphadenectomy ([facility]) Poorly differentiated prostatic adenocarcinoma of left [...] PSA 0.14 RADIOLOGY/OTHER STUDIES: 11/05/2021 CT chest/abdomen/pelvis ([facility]) Several sclerotic lesions consistent with metastatic disease. No evidence of visceral organ involvement or lymphadenopathy. 11/05/2021 Bone scan ([facility]) Multifocal osseous metastasis including the left femur at the lesser trochanter, right pubis symphysis, multiple ribs bilaterally. 01/22/2018 Nuclear bone scan ([facility]) New focal increased activity left frontal bone, left T8 vertebral body. 01/22/2018 MRI pelvis ([facility]) 4.5 cm area of T2 signal in the prostate bed. 07/24/2014 CT abdomen/pelvis ([facility] Diffuse prostatic enlargement with indentation of the bladder base. Incidental 2.5 x 1 cm exophytic hypodense lesion adjacent to the pancreatic body. ASSESSMENT/PLAN: 1. Metastatic prostate cancer (HCC) - ICD9: 185, ICD10: C61 (primary diagnosis) The patient was diagnosed with early-stage high-grade prostate cancer in June 2014 (TRUS [id number]/02/2014). He underwent a radical prostatectomy on 11/05/2014. Pathology consistent with stage IIIC (pT2b, N0, M0), [place] 5+4 equal 9. Postop the patient's PSA [...] at <12. Staging scans were obtained at [facility] on 11/05/2021. Bone scan revealed multiple [...] 414.01, ICD10: I25.10 Status post CABG 08/17/2014 ([facility]). Stable on current medications. [...] CC: Dr. Anthony Scruggs documented in this encounter05-23-2022 Miscellaneous Notes* Telephone Encounter - Clementine Aguilar [...] that he has the phone number to [facility]. No additional questionsnoted. Clementine Aguilar RN documented in this encounter04-28-2022 History of Present illness Narrative* Marco A Esqueda MD - 11/11/2021 7:42 AM EDT PATIENT NAME: Pablo Felix DATE: 11/11/2021 PRIMARY CARE PHYSICIAN: Jamar Fall DO OTHER PHYSICIANS: Dr. Anthony Scruggs, Dr. Khan, [facility] Cardiology Portions of this encounter note have been copied from my note from 10/28/2021 and has been updated where appropriate, and reflect my current medical decision making from today. CC: This is a 76 year old male with recently diagnosed metastatic prostate cancer, seen for scheduled follow-up. INTERIM HISTORY: Since the patient's initial visit here he underwent staging scans at [facility] on 11/05/2021. Bone scan revealed multiple [...] Each once daily. To test blood sugar Skvcuzlxilxeh-Eregmbtd-Nlzywr (MULTIVITAMIN 50 PLUS) tab Take 1 tablet [...] Radical retropubic prostatectomy and bilateral pelvic lymphadenectomy ([facility]) Poorly differentiated prostatic adenocarcinoma of left [...] PSA 2.64 RADIOLOGY/OTHER STUDIES: 11/05/2021 CT chest/abdomen/pelvis ([facility]) Several sclerotic lesions consistent with metastatic disease. No evidence of visceral organ involvement or lymphadenopathy. 11/05/2021 Bone scan ([facility]) Multifocal osseous metastasis including the left femur at the lesser trochanter, right pubis symphysis, multiple ribs bilaterally. 01/22/2018 Nuclear bone scan ([facility]) New focal increased activity left frontal bone, left T8 vertebral body. 01/22/2018 MRI pelvis ([facility]) 4.5 cm area of T2 signal in the prostate bed. 07/24/2014 CT abdomen/pelvis ([facility] Diffuse prostatic enlargement with indentation of the bladder base. Incidental 2.5 x 1 cm exophytic hypodense lesion adjacent to the pancreatic body. ASSESSMENT/PLAN: 1. Metastatic prostate cancer (HCC) - ICD9: 185, ICD10: C61 (primary diagnosis) The patient was diagnosed with early-stage high-grade prostate cancer in June 2014 (TRUS [id number]/02/2014). He underwent a radical prostatectomy on 11/05/2014. Pathology consistent with stage IIIC (pT2b, N0, M0), [place] 5+4 equal 9. Postop the patient's PSA [...] at <12. Staging scans were obtained at [facility] on 11/05/2021. Bone scan revealed multiple [...] 414.01, ICD10: I25.10 Status post CABG 08/17/2014 ([facility]). Stable on current medications. [...] CC: Dr. Anthony Scruggs documented in this encounter04-27-2022 Miscellaneous Notes* Telephone Encounter - Clementine Aguilar RN - 11/10/2021 3:03 PM EDT Pt reports his Enzalutamide was delivered. Will start this evening. Clementine Aguilar RN documented in this encounter04-26-2022 Miscellaneous Notes* Telephone Encounter - Clementine Aguilar RN - 11/09/2021 2:31 PM EDT Per pt, his Enzalutamide is scheduled to arrive tomorrow morning. Patient started/will start taking Enzalutamide on 11/10/21. Clementine Aguilar RN documented in this encounter04-25-2022 Hospital Discharge instructions Patient Education 11/08/2021 14:10:09 [...] who: Are older than age 65. Are -Russian. Are obese. Have a family history of [...] cells. Follow these instructions at home: Take vltg-pla-dheyhun and prescription medicines only as told by [...] 07/03/2006 Document Revised: 06/15/2018 Document Reviewed: 03/13/2017 [employer] Patient Education 2020 [employer]. Follow Up Care 08/23/2021 13:26:07 With:KAEL JAMES, Anthony Lee, URL Address: [facility] [address] , [place] [address]- [phone] When:05/10/2022 [facility] 04-21-2022 Miscellaneous Notes* Telephone Encounter - Clementine Aguilar RN - 11/04/2021 2:53 PM EDT Pt would like to get the 4th Covid vaccine when it's due. Dr Esqueda notified and gives the ok to proceed when due. Pt notified and verbalizes understanding. Clementine Aguilar RN documented in this encounter04-21-2022 History of Present illness Narrative* Clementine Aguilar [...] Information handout: Enzalutamide, Specialty Pharmacy Information : [facility] and Specialty Pharmacy phone numbers: Yes [...] minutes Clementine Aguilar RN * Aida Luo, [facility] - 11/04/2021 2:49 PM EDT Images from the original note were not included. [facility] Department of Pharmacy Oncology Pharmacy [...] Each once daily. To test blood sugar Fliiilyvejlse-Velotkfl-Enoaqu (MULTIVITAMIN 50 PLUS) tab Take 1 tablet [...] of chemotherapy NA - Followed up with [facility] for delivery of Free Xtandi [...] patient Rubin Navdeep Luo documented in this encounter04-21-2022 Miscellaneous Notes* Telephone Encounter - Aida Navdeep Luo - 11/04/2021 10:54 AM EDT Confirmed with [employer] approval date 11/01/21 and that the specialty pharmacy, [facility], will reach out to Mr Felix 3-5 business days from approval date. If he does not hear from them by 11/10/21 we should call [facility] @ option 2. I informed Mr Felix of this, he has an appt 11/12/21 and said if he has not heard from them by then he will get their phone number from us. Rubin Navdeep Luo documented in this encounter04-19-2022 Miscellaneous Notes* Telephone Encounter - Jennifer Garcia Pss - 11/02/2021 12:23 PM EDT Called pt, scheduled for education (11/04) @ 900am. * Telephone Encounter - Clmeentine Aguilar RN - 11/02/2021 11:57 AM EDT Clerical: Please schedule pt for education. Thank you! Clementine Aguilar RN * Telephone Encounter - Aida Luo RPh - 11/02/2021 11:41 AM EDT Approved for free [employer] until 07/16/22. Spoke to patient and let him know to be expecting this call. [facility] will call patient to set up delivery for all fills. I do not see where he has had chemo education yet. Alba does he need to be set up with you? Thanks Rubin Luo RPh * Telephone Encounter - Andreina Castillo RPh - 11/01/2021 10:55 AM EDT Patient called today. We completed a conference call with [employer] - they were ableto obtain consent and [...] We will proceed free drug application through [employer] Pharmacy to reach out to patient 10/29/2021 to notify. Brina Wang RPh * Telephone Encounter - Brina Wang RPh - 10/28/2021 3:08 PM EDT Ambulatory Pharmacy Prior Authorization Note Provider Intervention Required?: No- Pharmacy completed on your behalf. Drug: Xtandi Cover My Meds Carter: [id number] Determination: Approved Prior Authorization/Case #: [id number] Prior Authorization Expiration: 10/28/2022 Time to PA Submission in CMM: 15 min Time to PA Determination in CMM: Same day Additional Information: Co-Pay $3,111.12 For questions relating to this submission, please contact [facility] at [phone] documented in this encounter04-19-2022 Miscellaneous Notes* Telephone Encounter - Zohra Avila PA-C - 11/02/2021 12:00 PM EDT CBC and CMP orders placed Zohra Avila PA-C * Telephone Encounter - Katie Rosen MA - 11/02/2021 11:57 AM EDT Patient has an appt on 11/11/21. Would you like labs, if so place orders. Katie Rosen MA documented in this encounter04-18-2022 Miscellaneous Notes* Telephone Encounter - Clementine Aguilar [...] assistance program. Thanks, BRM documented in this encounter04-14-2022 Miscellaneous Notes* Telephone Encounter - Clementine Aguilar RN - 10/28/2021 1:12 PM EDT Voicemail message received from Sandra @ [facility]. Reports the pt's 1st [...] back. Clementine Aguilar RN documented in this encounter04-14-2022 Miscellaneous Notes* Telephone Encounter - Clementine Aguilar RN - 10/28/2021 1:12 PM EDT This encounter was opened in error. @[email or web address]@ documented in this encounter04-11-2022 Miscellaneous Notes* Telephone Encounter - Christo Howard APRN.BUSINESS DEVELOPMENT REPRESENTATIVE - 10/25/2021 4:05 PM EDT Hold off for now. Christo Howard APRN.ALEXA * Telephone Encounter - Katie Rosen MA - 10/25/2021 11:01 AM EDT If patient needs labs, please sign/place orders for 10/28/21. Thanks. Katie Rosen MA documented in this encounter01-01-2015 Evaluation note* Diagnosis Onset Date Resolution Status ASHD (arteriosclerotic heart disease) acute Cervical spondylosis acute Essential hypertension acute Hypercholesterolemia acute Malignant neoplasm of prostate July 17, 2014 acute Nonrheumatic aortic valve stenosis acute GRADY (obstructive sleep apnea) acute Type 2 diabetes mellitus with hyperglycemia acute [facility] Work Phone: Evaluation + Plan note Future Appointments Appointment Date:05/13/2022 08:45:00 AM Scheduled Provider:Anthony SCRUGGS MD Location:[facility] Appointment Type:URO Office Visit Diagnostic Tests Pending * PSA Total 11/08/21 Future Scheduled Tests Laboratory* Basic Metabolic Panel 09/20/21 [facility] evaluation + Plan note Future Appointments Appointment Date:10/28/2022 08:00:00 AM Scheduled Provider:Anthony SCRUGGS MD Location:[facility] Appointment Type:URO Office Visit Diagnostic Tests Pending * PSA Total 09/14/22 Future Scheduled Tests Laboratory* Basic Metabolic Panel 09/20/21 [facility] evaluation + Plan note Future Appointments Appointment Date:10/20/2023 08:45:00 AM Scheduled Provider:Anthony SCRUGGS MD Location:[facility] Appointment Type:URO Office Visit Diagnostic Tests Pending * PSA Total 04/17/23 [facility] evaluation + Plan note Future Appointments Appointment Date:04/19/2024 08:00:00 AM Scheduled Provider:Anthony SCRUGGS MD Location:[facility] Appointment Type:URO Office Visit Diagnostic Tests Pending * PSA Total 02/15/24 [facility] evaluation + Plan note Future Appointments Appointment Date:10/07/2024 09:15:00 AM Scheduled Provider:Anthony SCRUGGS MD Location:[facility] Appointment Type:URO Office Visit Diagnostic Tests Pending * PSA Total 08/17/24 [facility] evaluation note* Diagnosis OPENED IN ERROR- [...] and bone marrow 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, unspecified vessel or lesion type Essential hypertension Unspecified essential hypertension Type 2 diabetes mellitus without complication, without long-term current use of insulin (HCC) [facility] noteNo [facility] Other Evaluation note* Diagnosis Malignant neoplasm of prostate (HCC)- Primary Malignant neoplasm of prostate 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, unspecified vessel or lesion type Essential hypertension Unspecified essential hypertension Type 2 diabetes mellitus without complication, without long-term current use of insulin (HCC) [facility] this [facility]* Diagnosis Malignant neoplasm of prostate (HCC)- Primary Malignant neoplasm of prostate [facility] this encounter [facility]* Diagnosis Malignant neoplasm of prostate (HCC)- Primary Malignant neoplasm of prostate documented [facility] this encounter [facility]* Diagnosis Malignant neoplasm of prostate (HCC)- Primary Malignant neoplasm of prostate 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, unspecified vessel or lesion type Essential hypertension Unspecified essential hypertension Type 2 diabetes mellitus without complication, without long-term current use of insulin (HCC) documented [facility] this encounter [facility]* Diagnosis Neoplasm of unspecified behavior of bone, soft tissue, and skin Actinic keratosis documented in this encounter [facility] note* Diagnosis Malignant neoplasm of prostate (HCC)- Primary Malignant neoplasm of prostate documented [facility] this encounter [facility]* Diagnosis Malignant neoplasm of prostate (HCC)- Primary Malignant neoplasm of prostate Essential hypertension Unspecified essential hypertension 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, unspecified vessel or lesion type Type 2 diabetes mellitus without complication, without long-term current use of insulin (HCC) Lesion of skin of right ear Abdominal discomfort Abdominal pain, unspecified site documented [facility] this encounter [facility]* Diagnosis Onset Date Resolution Status Cervical spondylosis acute Mass of skin of left shoulder acute Primary osteoarthritis, right shoulder acute Shoulder pain, right acute Neck pain noneactive ASHD (arteriosclerotic heart disease) acute Essential hypertension acute Hypercholesterolemia acute Malignant neoplasm of prostate July 17, 2014 acute Nonrheumatic aortic valve stenosis acute GRADY (obstructive sleep apnea) acute Type 2 diabetes mellitus with hyperglycemia acute [facility] Work Phone: Evaluation note* Diagnosis Malignant neoplasm of prostate (HCC)- Primary Malignant neoplasm of prostate [facility] this encounter [facility]* Diagnosis Malignant neoplasm of prostate (HCC)- Primary Malignant neoplasm of prostate [facility] encounter [facility]* Diagnosis Malignant neoplasm of prostate (HCC)- Primary Malignant neoplasm of prostate documented in this encounter [facility] note* Diagnosis Malignant neoplasm of prostate (HCC)- Primary Malignant neoplasm of prostate documented in this encounter [facility] note* Diagnosis Malignant neoplasm of prostate (HCC)- Primary Malignant neoplasm of prostate Essential hypertension Unspecified essential hypertension 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, unspecified vessel or lesion type Type 2 diabetes mellitus without complication, without long-term current use of insulin (HCC) documented in this encounter [facility] note* Diagnosis Malignant neoplasm of prostate (HCC)- Primary Malignant neoplasm of prostate documented in this encounter [facility] general Narrative - Reported* Type [...] [place] 08/2015 Hospitalization History see surgical hx [facility] Other History general Narrative - Reported* Type [...] [place] 08/2015 Hospitalization History see surgical hx [facility] Other Hospital course Narrative No data available for this section [facility] progress note No data available for this section [facility] Medications Administered Section Inactive Administered Medications [...] To Contact Diagnoses Actinic keratosis Long Boo, CARPORT ERECTOR-BUSINESS DEVELOPMENT REPRESENTATIVE [address] [place] [address] Referral ID Status Reason Start Date Expiration Date V isits Requested Visits Authorized [id number] Pending Review 1 1 Reason *FU 06/06 Right fr ontal sinus mass and cerumen impaction Diagnosis 1 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) Diagnosis 2 Impacted cerumen of right ear (H61.21) Referral Organization [facility] Thony lizama Referring Provider First Name Jamar Referring Provider Last Name Juan David Referring Provider Specialty Internal Me dicine Referred Organization [facility] Referred Provider Emelina Louis Referred Address ,[place], [place],[address] Referred Provider Specialty Ear, Nose an d [...] or prosecute any alcohol or drug abuse patient.In the event this information is protected by the Federal Confidentiality of Alcohol and Drug Abuse Patient Records regulations: The Federal rules restrict any use of the information to criminally investigate or prosecute any alcohol or drug abuse patient.In the event this information is protected by the Federal Confidentiality of Alcohol and Drug Abuse Patient Records regulations: The Federal rules restrict any use of the information to criminally investigate or prosecute any alcohol or drug abuse patient.In the event this information is protected by the Federal Confidentiality of Alcohol and Drug Abuse Patient Records regulations: The Federal rules restrict any use of the information to criminally investigate or prosecute any alcohol or drug abuse patient.In the event this information is protected by the Federal Confidentiality of Alcohol and Drug Abuse Patient Records regulations: The Federal rules restrict any use of the information to criminally investigate or prosecute any alcohol or drug abuse patient.In the event this information is protected by the Federal Confidentiality of Alcohol and Drug Abuse Patient Records regulations: The Federal rules restrict any use of the information to criminally investigate or prosecute any alcohol or drug abuse patient.In the event this information is protected by the Federal Confidentiality of Alcohol and Drug Abuse Patient Records regulations: The Federal rules restrict any use of the information to criminally investigate or prosecute any alcohol or drug abuse patient.In the event this information is protected by the Federal Confidentiality of Alcohol and Drug Abuse Patient Records regulations: The Federal rules restrict any use of the information to criminally investigate or prosecute any alcohol or drug abuse patient.In the event this information is protected by the Federal Confidentiality of Alcohol and Drug Abuse Patient Records regulations: The Federal rules restrict any use of the information to criminally investigate or prosecute any alcohol or drug abuse patient.In the event this information is protected by the Federal Confidentiality of Alcohol and Drug Abuse Patient Records regulations: The Federal rules restrict any use of the information to criminally investigate or prosecute any alcohol or drug abuse patient.In the event this information is protected by the Federal Confidentiality of Alcohol and Drug Abuse Patient Records regulations: The Federal rules restrict any use of the information to criminally investigate or prosecute any alcohol or drug abuse patient.In the event this information is protected by the Federal Confidentiality of Alcohol and Drug Abuse Patient Records regulations: The Federal rules restrict any use of the information to criminally investigate or prosecute any alcohol or drug abuse patient.In the event this information is protected by the Federal Confidentiality of Alcohol and Drug Abuse Patient Records regulations: The Federal rules restrict any use of the information to criminally investigate or prosecute any alcohol or drug abuse patient.In the event this information is protected by the Federal Confidentiality of Alcohol and Drug Abuse Patient Records regulations: The Federal rules restrict any use of the information to criminally investigate or prosecute any alcohol or drug abuse patient.In the event this information is protected by the Federal Confidentiality of Alcohol and Drug Abuse Patient Records regulations: The Federal rules restrict any use of the information to criminally investigate or prosecute any alcohol or drug abuse patient.In the event this information is protected by the Federal Confidentiality of Alcohol and Drug Abuse Patient Records regulations: The Federal rules restrict any use of the information to criminally investigate or prosecute any alcohol or drug abuse patient.In the event this information is protected by the Federal Confidentiality of Alcohol and Drug Abuse Patient Records regulations: The Federal rules restrict any use of the information to criminally investigate or prosecute any alcohol or drug abuse patient.In the event this information is protected by the Federal Confidentiality of Alcohol and Drug Abuse Patient Records regulations: The Federal rules restrict any use of the information to criminally investigate or prosecute any alcohol or drug abuse patient.In the event this information is protected by the Federal Confidentiality of Alcohol and Drug Abuse Patient Records regulations: The Federal rules restrict any use of the information to criminally investigate or prosecute any alcohol or drug abuse patient.In the event this information is protected by the Federal Confidentiality of Alcohol and Drug Abuse Patient Records regulations: The Federal rules restrict any use of the information to criminally investigate or prosecute any alcohol or drug abuse patient.In the event this information is protected by the Federal Confidentiality of Alcohol and Drug Abuse Patient Records regulations: The Federal rules restrict any use of the information to criminally investigate or prosecute any alcohol or drug abuse patient.In the event this information is protected by the Federal Confidentiality of Alcohol and Drug Abuse Patient Records regulations: The Federal rules restrict any use of the information to criminally investigate or prosecute any alcohol or drug abuse patient.In the event this information is protected by the Federal Confidentiality of Alcohol and Drug Abuse Patient Records regulations: The Federal rules restrict any use of the information to criminally investigate or prosecute any alcohol or drug abuse patient.In the event this information is protected by the Federal Confidentiality of Alcohol and Drug Abuse Patient Records regulations: The Federal rules restrict any use of the information to criminally investigate or prosecute any alcohol or drug abuse patient.In the event this information is protected by the Federal Confidentiality of Alcohol and Drug Abuse Patient Records regulations: The Federal rules restrict any use of the information to criminally investigate or prosecute any alcohol or drug abuse patient.In the event this information is protected by the Federal Confidentiality of Alcohol and Drug Abuse Patient Records regulations: The Federal rules restrict any use of the information to criminally investigate or prosecute any alcohol or drug abuse patient.In the event this information is protected by the Federal Confidentiality of Alcohol and Drug Abuse Patient Records regulations: The Federal rules restrict any use of the information to criminally investigate or prosecute any alcohol or drug abuse patient.In the event this information is protected by the Federal Confidentiality of Alcohol and Drug Abuse Patient Records regulations: The Federal rules restrict any use of the information to criminally investigate or prosecute any alcohol or drug abuse patient.In the event this information is protected by the Federal Confidentiality of Alcohol and Drug Abuse Patient Records regulations: The Federal rules restrict any use of the information to criminally investigate or prosecute any alcohol or drug abuse patient.In the event this information is protected by the Federal Confidentiality of Alcohol and Drug Abuse Patient Records regulations: The Federal rules restrict any use of the information to criminally investigate or prosecute any alcohol or drug abuse patient.In the event this information is protected by the Federal Confidentiality of Alcohol and Drug Abuse Patient Records regulations: The Federal rules restrict any use of the information to criminally investigate or prosecute any alcohol or drug abuse patient.In the event this information is protected by the Federal Confidentiality of Alcohol and Drug Abuse Patient Records regulations: The Federal rules restrict any use of the information to criminally investigate or prosecute any alcohol or drug abuse patient.In the event this information is protected by the Federal Confidentiality of Alcohol and Drug Abuse Patient Records regulations: The Federal rules restrict any use of the information to criminally investigate or prosecute any alcohol or drug abuse patient.In the event this information is protected by the Federal Confidentiality of Alcohol and Drug Abuse Patient Records regulations: The Federal rules restrict any use of the information to criminally investigate or prosecute any alcohol or drug abuse patient.In the event this information is protected by the Federal Confidentiality of Alcohol and Drug Abuse Patient Records regulations: The Federal rules restrict any use of the information to criminally investigate or prosecute any alcohol or drug abuse patient.In the event this information is protected by the Federal Confidentiality of Alcohol and Drug Abuse Patient Records regulations: The Federal rules restrict any use of the information to criminally investigate or prosecute any alcohol or drug abuse patient.In the event this information is protected by the Federal Confidentiality of Alcohol and Drug Abuse Patient Records regulations: The Federal rules restrict any use of the information to criminally investigate or prosecute any alcohol or drug abuse patient.In the event this information is protected by the Federal Confidentiality of Alcohol and Drug Abuse Patient Records regulations: The Federal rules restrict any use of the information to criminally investigate or prosecute any alcohol or drug abuse patient.In the event this information is protected by the Federal Confidentiality of Alcohol and Drug Abuse Patient Records regulations: The Federal rules restrict any use of the information to criminally investigate or prosecute any alcohol or drug abuse patient. Care Teams (unrecognized sec tion and content) [...] September 02, 2024 End: September 02, 2024 Refrigeration Insulator Relationship Specialty Start Date End Date Jamar Fall DO PCP - General Internal Medicine 08/04/14 Refrigeration Insulator Relationship Specialty Start Date End Date Jamar Fall DO PCP - General Internal Medicine 08/04/14 Refrigeration Insulator Relationship Specialty Start Date End Date Jamar Fall, DO PCP - General Internal Medicine 08/04/14 Refrigeration Insulator Relationship Specialty Start Date End Date Jamar Fall, DO PCP - General Internal Medicine 08/04/14 Marco A Esqueda MD [address] [address] Physician Hematology/Oncology 11/02/21 Christo Howard, CARPORT ERECTOR.BUSINESS DEVELOPMENT REPRESENTATIVE [address] [place] [place] [address] Nurse Practitioner Hematology/Oncology 11/02/21 Clementine Aguilar, RN [address] [place] [place] [address] Specialty On Call Hematology/Oncology 11/02/21 Refrigeration Insulator Relationship Specialty Start Date End Date Jamar Fall, DO PCP - General Internal Medicine 08/04/14 aMrco A Esqueda MD [address] [place] [address] Physician Hematology/Oncology 11/02/21 Christo Howard, CARPORT ERECTOR.BUSINESS DEVELOPMENT REPRESENTATIVE [address] [place] [address] Nurse Practitioner Hematology/Oncology 11/02/21 Clementine Aguilar, RN [address] [place] [address] Specialty On Call Hematology/Oncology 11/02/21 Refrigeration Insulator Relationship Specialty Start Date End Date Jamar Fall, DO PCP - General Internal Medicine 08/04/14 Marco A Esqueda MD [address] [place] [address] Physician Hematology/Oncology 11/02/21 Christo Howard, CARPORT ERECTOR.[facility] [address] [place] [address] Nurse Practitioner Hematology/Oncology 11/02/21 Clementine Aguilar, ANITHA [address] [place] [place] [address] Specialty On Call Hematology/Oncology 11/02/21 Refrigeration Insulator Relationship Specialty Start Date End Date Jamar Fall, DO PCP - General Internal Medicine 08/04/14 Marco A Esqueda MD [address] [place] [address] Physician Hematology/Oncology 11/02/21 Christo Howard, CARPORT ERECTOR.BUSINESS DEVELOPMENT REPRESENTATIVE [address] [place] [address] Nurse Practitioner Hematology/Oncology 11/02/21 Clementine Aguilar, ANITHA [address] [place] [address] [place] [address] Specialty On Call Hematology/Oncology 11/02/21 Refrigeration Insulator Relationship Specialty Start Date End Date Jamar Fall, DO PCP - General Internal Medicine 08/04/14 Marco A Esqueda MD [address] [place] [address] Physician Hematology/Oncology 11/02/21 Christo Howard, CARPORT ERECTOR.[facility] [address] [place] [address] Nurse Practitioner Hematology/Oncology 11/02/21 Clementine Aguilar, ANITHA [address] [place], [place] [id number] Specialty On Call Hematology/Oncology 11/02/21 Refrigeration Insulator Relationship Specialty Start Date End Date Jamar Fall, DO PCP - General Internal Medicine 08/04/14 Marco A Esqueda MD [address] [place], [place] [id number] Physician Hematology/Oncology 11/02/21 Christo Howard, CARPORT ERECTOR.BUSINESS DEVELOPMENT REPRESENTATIVE [address] [place] [address] Nurse Practitioner Hematology/Oncology 11/02/21 Clementine Aguilar, RN [address] [place] [address] Specialty On Call Hematology/Oncology 11/02/21 Refrigeration Insulator Relationship Specialty Start Date End Date Jamar Fall, DO PCP - General Internal Medicine 08/04/14 Marco A Esqueda MD [address] [place], [place] [id number] Physician Hematology/Oncology 11/02/21 Christo Howard, CARPORT ERECTOR.BUSINESS DEVELOPMENT REPRESENTATIVE [address] [place] [address] Nurse Practitioner Hematology/Oncology 11/02/21 Clementine Aguilar, ANITHA [address] [place] [address] Specialty On Call Hematology/Oncology 11/02/21 Refrigeration Insulator Relationship Specialty Start Date End Date Jamar Fall, DO PCP - General Internal Medicine 08/04/14 Marco A Esqueda MD [address] [place] [address] Physician Hematology/Oncology 11/02/21 Christo Howard, CARPORT ERECTOR.[facility] [address] [place], [place] [address] Nurse Practitioner Hematology/Oncology 11/02/21 Clementine Aguilar, RN [address] [place] [address] Specialty On Call Hematology/Oncology 11/02/21 Refrigeration Insulator Relationship Specialty Start Date End Date Jamar Fall, DO PCP - General Internal Medicine 08/04/14 Marco A Esqueda MD [address] [place] [address] Physician Hematology/Oncology 11/02/21 Christo Howard, CARPORT ERECTOR.BUSINESS DEVELOPMENT REPRESENTATIVE [address] [place] [address] Nurse Practitioner Hematology/Oncology 11/02/21 Clementine Aguilar, ANITHA [address] [place] [address] Specialty On Call Hematology/Oncology 11/02/21 Refrigeration Insulator Relationship Specialty Start Date End Date Jamar Fall, DO PCP - General Internal Medicine 08/04/14 Marco A Esqueda MD [address] [place] [address] Physician Hematology/Oncology 11/02/21 Christo Howard, CARPORT ERECTOR.BUSINESS DEVELOPMENT REPRESENTATIVE [address] [place] [address] Nurse Practitioner Hematology/Oncology 11/02/21 Clementine Aguilar, ANITHA [address] [place] [address] Specialty On Call Hematology/Oncology 11/02/21 Refrigeration Insulator Relationship Specialty Start Date End Date Jamar Fall, PCP - General Internal Medicine 08/04/14 Marco A Esqueda MD [address] [place] [address] Physician Hematology/Oncology 11/02/21 Christo Howard, CARPORT ERECTOR.BUSINESS DEVELOPMENT REPRESENTATIVE [address] [place] [address] Nurse Practitioner Hematology/Oncology 11/02/21 Clementine Aguilar, ANITHA [address] [place] [address] Specialty On Call Hematology/Oncology 11/02/21 Refrigeration Insulator Relationship Specialty Start Date End Date Jamar Fall, DO PCP - General Internal Medicine 08/04/14 Marco A Esqueda MD [address] [place] [address] Physician Hematology/Oncology 11/02/21 Christo Howard, CARPORT ERECTOR.BUSINESS DEVELOPMENT REPRESENTATIVE [address] [place] [address] Nurse Practitioner Hematology/Oncology 11/02/21 Clementine Aguilar, RN [address] [place] [address] Specialty On Call Hematology/Oncology 11/02/21 Refrigeration Insulator Relationship Specialty Start Date End Date Jamar Fall, PCP - General Internal Medicine 08/04/14 Marco A Esqueda MD [address] [place] [address] Physician Hematology/Oncology 11/02/21 Christo Howard, CARPORT ERECTOR.BUSINESS DEVELOPMENT REPRESENTATIVE [address] [facility] [place] [address] [place], [place] [address] Nurse Practitioner Hematology/Oncology 11/02/21 Clementine Aguilar, RN [address] [facility] [place] [place] [address] Specialty On Call Hematology/Oncology 11/02/21 Refrigeration Insulator Relationship Specialty Start Date End Date Jamar Fall DO PCP - General Internal Medicine 08/04/14 Marco A Esqueda MD [address] [facility] [place] [place] [address] Physician Hematology/Oncology 11/02/21 Christo Howard, CARPORT ERECTOR.BUSINESS DEVELOPMENT REPRESENTATIVE [address] [place] [address] Nurse Practitioner Hematology/Oncology 11/02/21 Clementine Aguilar, ANITHA [address] [facility] [place] [place] [address] Specialty On Call Hematology/Oncology 11/02/21 Refrigeration Insulator Relationship Specialty Start Date End Date Jamar Fall DO PCP - General Internal Medicine 08/04/14 Marco A Esqueda MD [address] [facility] [place] [place] [address] Physician Hematology/Oncology 11/02/21 Christo Howard, CARPORT ERECTOR.BUSINESS DEVELOPMENT REPRESENTATIVE [address] [place] [address] Nurse Practitioner Hematology/Oncology 11/02/21 Clementine Aguilar, ANITHA [address] [facility] [place] [place] [address] Specialty On Call Hematology/Oncology 11/02/21 Refrigeration Insulator Relationship Specialty Start Date End Date Jamar Fall DO PCP - General Internal Medicine 08/04/14 Marco A Esqueda MD [address] [facility] [place] [place] [address] Physician Hematology/Oncology 11/02/21 Christo Howard, CARPORT ERECTOR.BUSINESS DEVELOPMENT REPRESENTATIVE [address] [place] [address] Nurse Practitioner Hematology/Oncology 11/02/21 Clementine Aguilar RN [address] [facility] [place] [place] [address] Specialty On Call Hematology/Oncology 11/02/21 Refrigeration Insulator Relationship Specialty Start Date End Date Jamar Fall DO PCP - General Internal Medicine 08/04/14 Marco A Esqueda MD [address] [facility] [place] [place] [address] Physician Hematology/Oncology 11/02/21 Christo Howard, CARPORT ERECTOR.BUSINESS DEVELOPMENT REPRESENTATIVE [address] [facility] [place] [place] [address] Nurse Practitioner Hematology/Oncology 11/02/21 Clementine Aguilar, RN [address] [facility] [place] [place] [address] Specialty On Call Hematology/Oncology 11/02/21 Refrigeration Insulator Relationship Specialty Start Date End Date Jamar Fall MD [address] [place] [address] PCP - General Internal Medicine 05/31/23 Refrigeration Insulator Relationship Specialty Start Date End Date Jamar Fall MD [address] [place] [facility] [address] PCP - General Internal Medicine 05/31/23 Refrigeration Insulator Relationship Specialty Start Date End Date Jamar Fall DO PCP - General Internal Medicine 08/04/14 Marco A Esqueda MD [address] [place] [address] Physician Hematology/Oncology 11/02/21 Christo Howard, CARPORT ERECTOR.BUSINESS DEVELOPMENT REPRESENTATIVE [address] [place] [place] [address] Nurse Practitioner Hematology/Oncology 11/02/21 Clementine Aguilar, ANITHA [address] [place] [place] [address] Specialty On Call Hematology/Oncology 11/02/21 Refrigeration Insulator Relationship Specialty Start Date End Date Jamar Fall DO PCP - General Internal Medicine 08/04/14 Marco A Esqueda MD [address] [place] [place] [address] Physician Hematology/Oncology 11/02/21 Christo Howard, CARPORT ERECTOR.BUSINESS DEVELOPMENT REPRESENTATIVE [address] [place] [place] [address] Nurse Practitioner Hematology/Oncology 11/02/21 Clementine Aguilar, ANITHA [address] [place] [address] Specialty On Call Hematology/Oncology 11/02/21 Team Status: Active Member Role [...] November 23, 2023 End: November 23, 2023 Refrigeration Insulator Relationship Specialty Start Date End Date Jamar Fall DO PCP - General Internal Medicine 08/04/14 Marco A Esqueda MD [address] [place] [address] [place] [address] Physician Hematology/Oncology 11/02/21 Christo Howard APRN.BUSINESS DEVELOPMENT REPRESENTATIVE [address] [place] [address] [place] [address] Nurse Practitioner Hematology/Oncology 11/02/21 Clementine Aguilar, ANITHA [address] [place] [address] [place] [address] Specialty On Call Hematology/Oncology 11/02/21 Refrigeration Insulator Relationship Specialty Start Date End Date Jamar Fall DO PCP - General Internal Medicine 08/04/14 Marco A Esqueda MD [address] [place] [address] [place] [address] Physician Hematology/Oncology 11/02/21 Christo Howadr, ROCHELLE.BUSINESS DEVELOPMENT REPRESENTATIVE [address] [place] [address] [place] [address] Nurse Practitioner Hematology/Oncology 11/02/21 Clementine Aguilar, ANITHA [address] [place] [address] Specialty On Call Hematology/Oncology 11/02/21 Team Status: Active Member Role Status Dates Jamar Fall DO Primary Care Provider Active Start: January 25, 2024 SAMAN Collins Attending Provider Active Start: January 25, 2024 Team Status: Inactive Member Role Status Dates Jamar Fall DO Primary Care Provide r, Attending Provider Active Start: March 26, 2024 End: March 26, 2024 Refrigeration Insulator Relationship Specialty Start Date End Date Jamar Fall DO PCP - General Internal Medicine 08/04/14 Marco A Esqueda MD [address] [place] [address] [place] [address] Physician Hematology/Oncology 11/02/21 Christo Howard, CARPORT ERECTOR.BUSINESS DEVELOPMENT REPRESENTATIVE [address] [place] [address] [place] [address] Nurse Practitioner Hematology/Oncology 11/02/21 Clementine Aguilar, ANITHA [address] [place] [address] Specialty On Call Hematology/Oncology 11/02/21 Refrigeration Insulator Relationship Specialty Start Date End Date Jamar Fall DO PCP - General Internal Medicine 08/04/14 Marco A Esqueda MD [address] [place] [address] Physician Hematology/Oncology 11/02/21 Christo Howard, CARPORT ERECTOR.BUSINESS DEVELOPMENT REPRESENTATIVE [address] [place] [address] Nurse Practitioner Hematology/Oncology 11/02/21 Clementine Aguilar, ANITHA [address] [place] [address] Specialty On Call Hematology/Oncology 11/02/21 Refrigeration Insulator Relationship Specialty Start Date End Date Jamar Fall DO PCP - General Internal Medicine 08/04/14 Marco A Esqueda MD [address] [place] [address] Physician Hematology/Oncology 11/02/21 Christo Howard, CARPORT ERECTOR.BUSINESS DEVELOPMENT REPRESENTATIVE [address] [place] [address] Nurse Practitioner Hematology/Oncology 11/02/21 Clementine Aguilar, ANITHA [address] [place] [address] Specialty On Call Hematology/Oncology 11/02/21 Refrigeration Insulator Relationship Specialty Start Date End Date Jamar Fall DO PCP - General Internal Medicine 08/04/14 Marco A Esqueda MD [address] [place] [address] Physician Hematology/Oncology 11/02/21 Christo Howard, CARPORT ERECTOR.BUSINESS DEVELOPMENT REPRESENTATIVE [address] [place] [address] [place] [address] Nurse Practitioner Hematology/Oncology 11/02/21 Clementine Aguilar, ANITHA [address] [place] [address] Specialty On Call Hematology/Oncology 11/02/21 Refrigeration Insulator Relationship Specialty Start Date End Date Jamar Fall DO PCP - General Internal Medicine 08/04/14 Marco A Esqueda MD [address] [place] [address] [place] [address] Physician Hematology/Oncology 11/02/21 Christo Howard, CARPORT ERECTOR.BUSINESS DEVELOPMENT REPRESENTATIVE [address] [place] [address] [place] [address] Nurse Practitioner Hematology/Oncology 11/02/21 Clementine Aguilar, ANITHA [address] [place] [place] [address] Specialty On Call Hematology/Oncology 11/02/21 Reason for Visit (unrecogniz ed [...] DENOSUMAB INJECTION Marco A Esqueda MD [address] [place] [address] Himanshu Treat Ariella [address] [place] [place] [address] Referral ID Status Reason Start Date Expiration Date V isits Requested Visits Authorized [id number] Authorized 11/11/2021 07/16/2022 99 99 Reason Comments [...] R ear Marco A Esqueda MD [address] [place] [address] Lety Holguin MD [address] [place] [address] Referral ID Status Reason Start Date Expiration Date Visits Re quested Visits Authorized [id number] Closed 08/04/2023 01/31/2024 1 1 Reason Comments [...] DATE CREATED AUTHOR AUTHOR'S ORGANIZ ATION 03/02/2024 [facility] DATE CREATED AUTHOR AUTHOR'S ORGANIZ ATION 04/02/2024 [facility] DATE CREATED AUTHOR AUTHOR'S ORGANIZ ATION 10/08/2024 [facility] DATE CREATED AUTHOR AUTHOR'S ORGANIZ ATION 10/27/2024 [facility] DATE CREATED AUTHOR AUTHOR'S ORGANIZ ATION 11/19/2024 [facility] Inactive Administered Medications - up to [...] BE BASED ON THE PRIMARY CLINICAL RECORDS. [facility]. provides no warranty or guarantee of the accuracy or completeness of information in this document.
--- NOTE | 2025-01-30 08:15 | PM.CN ---
Consult Note: HPI Data of Consult Patient: known to practice within the last 3 years Requesting Physician: Cheryl Cox NP Primary Care Provider: Non-Staff Physician, MD Consult Narrative Reason for consult: f/u Narrative: Rajesh Felix a pleasant 79 year old male presents for evaluation of chronic left sided neck pain. has failed to benefit from >6 weeks of PT and provider guided HEP, heat, ice, tylenol, and topical NSAIDs. recent cervical xray and MRI consistent with multilevel degenerative changes and cervical stenosis. prior left C3-4 c4-5 TFESI provided 50% improvement for 3 months. today pain 5/10 sore increasing to 8/10 with ROM and upon waking up. cc:: CC: Cheryl Cox NP Review of Systems ROS Status of ROS 10 or more systems reviewed and unremarkable except as noted in history and below Musculoskeletal Reports: neck pain; Denies: extremity pain PFSH PFSH Medical History Anemia �D64.9 - Anemia, unspecified (ICD-10) History of blood transfusion �Z92.89 - Personal history of other medical treatment (ICD-10) Sleep apnea �G47.30 - Sleep apnea, unspecified (ICD-10) COVID-19 �U07.1 - COVID-19 (ICD-10) Prostate cancer �C61 - Malignant neoplasm of prostate (ICD-10) Coronary artery disease �I25.10 - Atherosclerotic heart disease of [place] coronary artery without angina pectoris (ICD-10) Diabetes �E11.9 - Type 2 diabetes mellitus without complications (ICD-10) Arthritis �M19.90 - Unspecified osteoarthritis, unspecified site (ICD-10) Neck pain �M54.2 - Cervicalgia (ICD-10) Surgical History Hx of CABG �Z95.1 - Presence of aortocoronary bypass graft (ICD-10) History of appendectomy �Z90.49 - Acquired absence of other specified parts of digestive tract (ICD-10) S/P prostatectomy �Z90.79 - Acquired absence of other genital organ(s) (ICD-10) History of colonoscopy �Z98.890 - Other specified postprocedural states (ICD-10) S/P epidural steroid injection �Z92.241 - Personal history of systemic steroid therapy (ICD-10) Family History Other Cancer Family history of myocardial infarction Social History Within the past year, how often did you have a drink containing alcohol: 4 or more times a week Within the past year, how many standard drinks containing alcohol did you have on a typical day: 1 or 2 Total score: 0 Score interpretation: A score less than 4 is consistent with normal alcohol consumption. Smoking status: Never smoker Non-prescribed substance use: denies use Previous occupational history: [employer] Highest level of school completed/degree received: Associate degree: occupational, technical, vocational program Meds Home Medications and Allergies Home Medications �Medication �Instructions �Recorded �Confirmed �Type CALCIUM & D3 .QD 12/13/23 History aspirin 81 mg capsule 81 mg PO DAILY 12/13/23 10/21/24 History atorvastatin 40 mg tablet 40 mg PO DAILY 12/13/23 10/21/24 History enzalutamide 80 mg tablet (Xtandi) 80 mg PO DAILY 12/13/23 10/21/24 History glimepiride 1 mg tablet 0.5 mg PO DAILY 12/13/23 10/21/24 History metformin 500 mg tablet 1,000 mg PO BID 12/13/23 10/21/24 History metoprolol succinate 25 mg 25 mg PO Q12H 12/13/23 10/21/24 History tablet,extended release 24 hr multivitamin with iron (Daily 1 tab PO DAILY 12/13/23 10/21/24 History Vites/Iron tablet) lisinopril 20 1 tab PO QPM 04/01/24 10/21/24 History mg-hydrochlorothiazide 12.5 mg tablet hydrocodone 5 mg-acetaminophen 325 1 tab PO Q6H PRN pain #8 tabs 04/08/24 10/21/24 Rx mg tablet Allergies Allergy/AdvReac Type Severity Reaction Status Date / Time Penicillins Allergy Mild Rash Verified 10/21/24 09:13 Exam Constitutional Documenting provider has reviewed patient's vital signs: yes Common normals: no apparent distress, oriented x3, healthy appearing, alert and well nourished General appearance: cooperative HENMT Common normals: normocephalic, hearing grossly normal bilaterally and moist oral mucous membranes Head and scalp: normocephalic Eye Common normals: PERRL Pupil: PERRL Neck & C-Spine Common normals: full ROM General: normal visual inspection Cervical spine: pain with cervical ROM, paracervical muscle tenderness and trapezius muscle tenderness; no cervical spine tenderness and no paracervical muscle spasm Other: positive spurlings, decreased sensation to left C3,4,5 strength 4/5 in LUE and 5/5 in RUE Chest Common normals: inspection of chest normal Respiratory Common normals: normal respiratory effort, no retractions and no use of accessory muscles Neuro Common normals: oriented x3 Sensorium/orientation: alert Psych Common normals: mental status grossly normal, thought process normal, cooperative, affect normal, speech normal and activity/motor behavior normal Speech: normal speech Thought process: normal thought process Results Additional Findings Additional findings: If on a controlled substance or opioids, I have checked an [place]AR[place] report on this patient and there are no aberrancies noted in the prescribing history.��If on a controlled substance or opioid a drug screen was completed and reviewed within the last year, and if there has not been a drug screen completed we ordered one today to monitor higher risk, state monitored pain medication use. As part of providing excellent, safe, comprehensive care, the following was completed at our patient's visit: 1. A medication reconciliation and review to ensure accurate knowledge of current/active medications, including asking our patients to inform us about any [id number]-[id number]-[id number] medications or herbal remedies/nutritional supplements/alternative remedies. 2. A review to specifically ensure our patients have had annual screening for screening for depression, screening for tobacco use, and screening for unhealthy alcohol use. For concerning screenings had a discussion with the patient, provided patient education, and recommended follow-up with primary care provider when appropriate. If patient noted with a risk of falling, they received education on strength, gait, and balance training to prevent future risk of falling. Portions of this note may have been carried over from the previous visit and updated as appropriate. Please note this office utilizes paper charting in addition to the electronic medical record. A list of current medications, vitals, and PMH is available there as the clinical staff outside of myself do not have access to [place] [employer] [place] charting during the clinic day operations. As part of providing quality comprehensive care the current medications, vitals, and PMH were reviewed in the paper chart. Assessment and Plan Assessment and Plan (1) Cervical spinal stenosis: Assessment and Plan: The patient has had over 3 months of moderate to severe neck pain with functional impairment and inadequate response to conservative care including NSAIDS (unless there are contraindication such as concurrent blood thinners), multiple oral or topical pain medications, and home exercise program/physical therapy.� Patient has completed >6 weeks of guided home exercise program and/or formal physical therapy program without relief of their symptoms.� I have reviewed the imaging of the cervical spine and no red flags were identified.� The imaging reveals radiographic findings consistent with cervical DDD, cervical stenosis, and cervical spondylosis The Oswestry Disability Index was completed, and the patient scored a 11%.� 10/21/24 left C3-4 C4-5 TFESI >50% improvement in pain/functional ability for 3 months (2) Cervical radiculopathy: (3) Cervical spondylosis: Assessment and Plan: failed left C2-3 C3-4 MBB and left C4/5 C5/6 MBB (4) Myofascial pain: Plan repeat left C3-4 C4-5 TFESI under fluoroscopy restart transdermal therapeutics compound cream #3 TID to affected areas, encouraged regular use continue HEP as tolerated f/u 2 weeks after injection
== END 2025-01-30 07:52 | disposition home or self-care (01) ==
LOC: PM 07:51
PROVIDERS: Visit Provider Nurse Practitioner
DX: M48.02 Spinal stenosis, cervical region (principal); M54.12 Radiculopathy, cervical region; M47.812 Spondylosis without myelopathy or radiculopathy, cervical region; M79.18 Myalgia, other site
CPT/HCPCS: G0463

== ENCOUNTER 2025-02-17 08:14 | Day surgery (SDC) | payer MEDICARE, OTHER, SELFPAY ==
--- OUTSIDE RECORDS SUMMARY | 2024-12-27 04:23 | XMS_ITS | Continuity of Care Document ---
Author Name [facility] Organization [facility] Care Team Providers Care Counter Dish Carrier Name Role Phone [facility] Unavailable Unavailable Problems Combined list of problems from Department of Defense and Veterans Affairs facilities. It does not include entries that were removed or entered in error. Problem Status Onset Date Problem Type Date of Resolution Comments Source Anisocoria Active Condition [facility] Coronary arteriosclerosis Active Condition Jun 01 6 Entered By: HARVINDER TORIBIO Comment: cabg X 3 (07/2014) [facility] Diabetes mellitus Active Condition [facility] Essential hypertension Active Condition [facility] HTN * (ICD-9-CM 401.9) Active Condition [facility] Hyperlipidemia Active Condition [facility] Hyperlipidemia * (ICD-9-CM 272.4) Active Condition [facility] Obesity Active Condition [facility] Primary malignant neoplasm of prostate Active Condition Jun 01, 2016 Entered By: HARVINDER TORIBIO Comment: PROSTATECTOMY 10/2014 [facility] Sleep apnea Active Condition [facility] Diagnosis: ICD-10-CM E11.9 Type 2 diabetes mellitus without complications Active Diagnosis [facility] Medications Combined list of outpatient medications from Department of Defense and Veterans Affairs facilities.Medications provided include 1) outpatient medications from the last 15 months, and 2) patient-reported medications. Medication Details Route Status Patient Instructions Prescription Expires Prescription Number Last Dispense Date Ordering Provider Order Date Order Qty Source ASPIRIN 81MG TAB,EC TAKE ONE TABLET BY MOUTH EVERY DAY ORAL ACTIVE WEATHERFO RDMARQUISEA K 2005 [facility] ATORVASTATI N CA 40MG TAB TAKE ONE TABLET BY MOUTH AT BEDTIME ORAL ACTIVE EMMANUELLE SOTO 2021 [facility] [facility] CALCIUM CITRATE 200MG/VITAM IN D 250UNT TAB TAKE TWO TABLETS BY MOUTH EVERY DAY ORAL ACTIVE EMMANUELLE SOTO 2021 TOR[facility] ENZALUTAMID E 40MG TAB TAKE FOUR TABLETS BY MOUTH EVERY MORNING ORAL ACTIVE EMMANUELLE SOTO 2021 [facility] GLIMEPIRIDE 1MG TAB TAKE ONE-HALF TABLET BY MOUTH EVERY MORNING, WITH BREAKFAS T ORAL ACTIVE EMMANUELLE SOTO 2020 [facility] HYDROCHLORO THIAZIDE 12.5MG/JOEL NOPRIL 20MG TAB TAKE ONE TABLET BY MOUTH EVERY DAY ORAL ACTIVE HARVINDER TORIBIO 2014 [facility] METFORMIN HCL 1000MG TAB TAKE ONE TABLET BY MOUTH EVERY DAY ORAL ACTIVE EMMANUELLE SOTO 2020 [facility] METOPROLOL TARTRATE 25MG TAB TAKE ONE TABLET BY MOUTH TWICE A DAY ORAL ACTIVE HARVINDER TORIBIO 2014 [facility] MULTIVITAMI NS W/MINERALS TAB 1 CAP/TAB EVERY DAY ACTIVE STANISLAV [address] 2005 [facility] Allergies, Adverse Reactions, Alerts Combined list of allergies from Department of Defense and Veterans Affairs facilities. It does not include entries that were removed or entered in error. Substance Category Reaction Severity Reaction type Status Date Reported Comments Source PENICILLIN Propensity to adverse reactions to drug (finding) HIVES active 1 [facility] SIMVASTATIN Propensity to adverse reactions to drug (finding) active 2 [facility] Immunizations Combined list of available immunizations from the Department of Defense and Veterans Affairs facilities. Immunization Series Date Given Administered By Site Reaction Lot Number CVX Code Drug Fly Tier Status Comments Source TDAP 2023 [place] [id number] 115 complet ed ADMINISTE RED AT NE, Patient tolerated injection well. [facility] INFLUENZA, HIGH-DOSE, TRIVALENT, PF 4 2023 135 complet ed HISTORICA L INFORMATI ON - FROM OTHER REGISTRY, [facility] INFLUENZA, HIGH-DOSE, QUADRIVALENT 3 2021 197 complet ed HISTORICA L INFORMATI ON - FROM OTHER REGISTRY, [facility] COVID-19 (MODERNA), MRNA, LNP-S, BIVALENT, PF, 50 MCG/0.5 ML OR 25MCG/0.25 ML DOSE 5 2021 229 complet ed HISTORICA L INFORMATI ON - FROM OTHER REGISTRY, [facility] COVID-19 (MODERNA), MRNA, LNP-S, PF, 100 MCG/0.5ML DOSE OR 50 MCG/0.25ML DOSE 4 2021 207 complet ed HISTORICA L INFORMATI ON - FROM OTHER REGISTRY, [facility] COVID-19 (MODERNA), MRNA, LNP-S, PF, 100 MCG/0.5ML DOSE OR 50 MCG/0.25ML DOSE 3 2020 207 complet ed HISTORICA L INFORMATI ON - FROM OTHER REGISTRY, [facility] INFLUENZA, UNSPECIFIED FORMULATION 2020 88 complet ed [facility] COVID-19 (MODERNA), MRNA, LNP-S, PF, 100 MCG/0.5ML DOSE OR 50 MCG/0.25ML DOSE 2 2020 207 complet ed HISTORICA L INFORMATI ON - FROM OTHER REGISTRY, [facility] COVID-19 (MODERNA), MRNA, LNP-S, PF, 100 MCG/0.5ML DOSE OR 50 MCG/0.25ML DOSE 1 2020 207 complet ed HISTORICA L INFORMATI ON - FROM OTHER REGISTRY, [facility] INFLUENZA (HISTORICAL) 2018 88 complet ed civ PCP (Dr. Jones) [facility] ZOSTER RECOMBINANT 2018 187 complet ed [facility] ZOSTER RECOMBINANT 2017 187 complet ed [facility] INFLUENZA (HISTORICAL) 2017 [address] [facility] Jones in [facility] INFLUENZA, TRIVALENT, ADJUVANTED 2 2017 168 complet ed HISTORICA L INFORMATI ON - FROM OTHER REGISTRY, [facility] PNEUMOCOCCAL POLYSACCHARID E PPV23 2016 33 complet ed [facility] INFLUENZA, INJECTABLE, QUADRIVALENT, PRESERVATIVE FREE 2016 150 complet ed HISTORICA L INFORMATI ON - FROM OTHER REGISTRY, [facility] INFLUENZA, HIGH DOSE SEASONAL 1 2016 135 complet ed HISTORICA L INFORMATI ON - FROM OTHER REGISTRY, [facility] INFLUENZA (HISTORICAL) [address] Jones [facility] INFLUENZA (HISTORICAL) 2015 88 complet ed Private pcp [facility] INFLUENZA, SEASONAL, INJECTABLE, PRESERVATIVE FREE 2014 140 complet ed [facility] INFLUENZA, UNSPECIFIED FORMULATION 2014 88 complet ed [facility] PNEUMOCOCCAL CONJUGATE PCV 13 2014 133 complet ed see chart [facility] PNEUMOCOCCAL POLYSACCHARID E PPV23 2014 33 complet ed HISTORICA L INFORMATI ON - FROM OTHER REGISTRY, [facility] INFLUENZA, SEASONAL, INJECTABLE, PRESERVATIVE FREE 2013 140 complet ed [facility] INFLUENZA, UNSPECIFIED FORMULATION 2013 88 complet ed [facility] DTAP, UNSPECIFIED FORMULATION 2012 107 complet ed [facility] INFLUENZA, UNSPECIFIED FORMULATION 2012 88 complet ed [facility] ZOSTER LIVE 1 2011 121 complet ed HISTORICA L INFORMATI ON - FROM OTHER REGISTRY, [facility] INFLUENZA, UNSPECIFIED FORMULATION 2011 88 complet ed [facility] INFLUENZA, UNSPECIFIED FORMULATION 2010 88 complet ed [facility] PNEUMOCOCCAL, UNSPECIFIED FORMULATION 2009 109 complet ed [facility] PNEUMOCOCCAL POLYSACCHARID E PPV23 1 2009 33 complet ed HISTORICA L INFORMATI ON - FROM OTHER REGISTRY, [facility] INFLUENZA (HISTORICAL) 2009 88 complet ed [facility] INFLUENZA, UNSPECIFIED FORMULATION 2008 88 complet ed [facility] INFLUENZA, UNSPECIFIED FORMULATION 2007 88 complet ed [facility] INFLUENZA, WHOLE 2003 16 complet ed [facility] TD(ADULT) UNSPECIFIED FORMULATION 2002 139 complet ed [facility] INFLUENZA, UNSPECIFIED FORMULATION 2001 88 complet ed [facility] Results Combined list of recent chemistry, hematology and other laboratory results from Department of Defense and Veterans Affairs, ranging from 15 months to all on record, depending upon the facility. Order Name Results Value Reference Range Date Interpretation Specimen Comments Source HEMOGLOBI N A1C HEMOGLOBIN A1C/HEMOGLO BIN.TOTAL IN BLOOD 5.5 3.6 - 5.7 04/15 Specimen Type: BLOOD Comment: Values obtained from A1C measurement s can vary. For typical A1C assays, a reported value of 7.0 could actually be between 6.72 and 7.28 if measured by a reference method. A reported value of 9.0 could actually be between 8.73 and 9.27. Ref: http://www. ngsp.org/[place] Pdata.asp Ordering Provider: YAIMA SOTO Report Released Date/Time: Apr 27, 2023 08:49 AM Reporting Lab: [place] [phone] Performing Lab: [place] [id number] LIPID PROFILE CHOLESTEROL [MASS/VOLUM E] IN SERUM OR PLASMA 132 mg/dL <199 - 199 04/15 Specimen Type: PLASMA Comment: DLDLREF RANGE: NEAR OR ABOVE OPTIMAL: 100-129 mg/dL BORDERLINE DLDLHIGH: 130-159 mg/dL HIGH: 160-189 mg/dL VERY HIGH: >=190 TRIG REF RANGE: BORDERLINE HIGH: 150-199 mg/dL HIGH: 200-499 mg/dL TRIG VERY HIGH: >=500 mg/dL CREA eGFR was calculated using the CKD-EPI 2020 equation. CHOL REF RANGE: BORDERLINE HIGH: 200-239 mg/dL HIGH: >=240 mg/dL Ordering Provider: YAIMA SOTO Report Released Date/Time: Apr 27, 2023 08:49 AM Reporting Lab: [place] [phone] Performing Lab: [place] [phone] [facility] LIPID PROFILE CHOLESTEROL IN LDL [MASS/VOLUM E] IN SERUM OR PLASMA BY DIRECT ASSAY 79 mg/dL <99 - 99 04/15 Specimen Type: PLASMA Comment: DLDLREF RANGE: NEAR OR ABOVE OPTIMAL: 100-129 mg/dL BORDERLINE DLDLHIGH: 130-159 mg/dL HIGH: 160-189 mg/dL VERY HIGH: >=190 TRIG REF RANGE: BORDERLINE HIGH: 150-199 mg/dL HIGH: 200-499 mg/dL TRIG VERY HIGH: >=500 mg/dL CREA eGFR was calculated using the CKD-EPI 2020 equation. CHOL REF RANGE: BORDERLINE HIGH: 200-239 mg/dL HIGH: >=240 mg/dL Ordering Provider: YAIMA SOTO Report Released Date/Time: Apr 27, 2023 08:49 AM Reporting Lab: [place] [phone] Performing Lab: [place] [phone] [place] [address] LIPID PROFILE CHOLESTEROL IN HDL [MASS/VOLUM E] IN SERUM OR PLASMA 40 mg/dL 60 04/15 L Specimen Type: PLASMA Comment: DLDLREF RANGE: NEAR OR ABOVE OPTIMAL: 100-129 mg/dL BORDERLINE DLDLHIGH: 130-159 mg/dL HIGH: 160-189 mg/dL VERY HIGH: >=190 TRIG REF RANGE: BORDERLINE HIGH: 150-199 mg/dL HIGH: 200-499 mg/dL TRIG VERY HIGH: >=500 mg/dL CREA eGFR was calculated using the CKD-EPI 2020 equation. CHOL REF RANGE: BORDERLINE HIGH: 200-239 mg/dL HIGH: >=240 mg/dL Ordering Provider: YAIMA SOTO R Report Released Date/Time: Apr 27, 2023 08:49 AM Reporting Lab: [place] [phone] Performing Lab: [place] [phone] [place] [address] LIPID PROFILE TRIGLYCERID E [MASS/VOLUM E] IN SERUM OR PLASMA 165 mg/dL <149 - 149 04/15 H Specimen Type: PLASMA Comment: DLDLREF RANGE: NEAR OR ABOVE OPTIMAL: 100-129 mg/dL BORDERLINE DLDLHIGH: 130-159 mg/dL HIGH: 160-189 mg/dL VERY HIGH: >=190 TRIG REF RANGE: BORDERLINE HIGH: 150-199 mg/dL HIGH: 200-499 mg/dL TRIG VERY HIGH: >=500 mg/dL CREA eGFR was calculated using the CKD-EPI 2020 equation. CHOL REF RANGE: BORDERLINE HIGH: 200-239 mg/dL HIGH: >=240 mg/dL Ordering Provider: YAIMA SOTO Report Released Date/Time: Apr 27, 2023 08:49 AM Reporting Lab: [place] [phone] Performing Lab: [place] [phone] [facility] MAGNESIUM MAGNESIUM [MASS/VOLUM E] IN SERUM OR PLASMA 2.1 mg/dL 1.6 - 2.6 04/15 Specimen Type: PLASMA Comment: DLDLREF RANGE: NEAR OR ABOVE OPTIMAL: 100-129 mg/dL BORDERLINE DLDLHIGH: 130-159 mg/dL HIGH: 160-189 mg/dL VERY HIGH: >=190 TRIG REF RANGE: BORDERLINE HIGH: 150-199 mg/dL HIGH: 200-499 mg/dL TRIG VERY HIGH: >=500 mg/dL CREA eGFR was calculated using the CKD-EPI 2020 equation. CHOL REF RANGE: BORDERLINE HIGH: 200-239 mg/dL HIGH: >=240 mg/dL Ordering Provider: YAIMA SOTO Report Released Date/Time: Apr 27, 2023 08:49 AM Reporting Lab: [place] [phone] Performing Lab: [address] PROSTATE SPECIFIC ANTIGEN PROSTATE SPECIFIC AG [MASS/VOLUM E] IN SERUM OR PLASMA 0.16 ng/mL <4.00 - 4.00 04/15 Specimen Type: SERUM No comment entered. Ordering Provider: YAIMA SOTO Report Released Date/Time: Apr 27, 2023 08:49 AM Reporting Lab: [place] [phone] Performing Lab: [place] [phone] COMPREHEN SIVE METABOLIC PANEL ALBUMIN [MASS/VOLUM E] IN SERUM OR PLASMA 4.2 g/dL 3.2 - 4.6 04/15 Specimen Type: PLASMA Comment: DLDLREF RANGE: NEAR OR ABOVE OPTIMAL: 100-129 mg/dL BORDERLINE DLDLHIGH: 130-159 mg/dL HIGH: 160-189 mg/dL VERY HIGH: >=190 TRIG REF RANGE: BORDERLINE HIGH: 150-199 mg/dL HIGH: 200-499 mg/dL TRIG VERY HIGH: >=500 mg/dL CREA eGFR was calculated using the CKD-EPI 2020 equation. CHOL REF RANGE: BORDERLINE HIGH: 200-239 mg/dL HIGH: >=240 mg/dL Ordering Provider: YAIMA SOTO Report Released Date/Time: Apr 27, 2023 08:49 AM Reporting Lab: [place] [phone] Performing Lab: [place] [phone] [facility] COMPREHEN SIVE METABOLIC PANEL ALKALINE PHOSPHATASE [ENZYMATIC ACTIVITY/VO LUME] IN SERUM OR PLASMA 69 U/L 40 - 150 04/15 Specimen Type: PLASMA Comment: DLDLREF RANGE: NEAR OR ABOVE OPTIMAL: 100-129 mg/dL BORDERLINE DLDLHIGH: 130-159 mg/dL HIGH: 160-189 mg/dL VERY HIGH: >=190 TRIG REF RANGE: BORDERLINE HIGH: 150-199 mg/dL HIGH: 200-499 mg/dL TRIG VERY HIGH: >=500 mg/dL CREA eGFR was calculated using the CKD-EPI 2020 equation. CHOL REF RANGE: BORDERLINE HIGH: 200-239 mg/dL HIGH: >=240 mg/dL Ordering Provider: YAIMA SOTO Report Released Date/Time: Apr 27, 2023 08:49 AM Reporting Lab: [place] [phone] Performing Lab: [place] [phone] [place] [address] COMPREHEN SIVE METABOLIC PANEL ALANINE AMINOTRANSF ERASE [ENZYMATIC ACTIVITY/VO LUME] IN SERUM OR PLASMA 21 U/L <55 - 55 04/15 Specimen Type: PLASMA Comment: DLDLREF RANGE: NEAR OR ABOVE OPTIMAL: 100-129 mg/dL BORDERLINE DLDLHIGH: 130-159 mg/dL HIGH: 160-189 mg/dL VERY HIGH: >=190 TRIG REF RANGE: BORDERLINE HIGH: 150-199 mg/dL HIGH: 200-499 mg/dL TRIG VERY HIGH: >=500 mg/dL CREA eGFR was calculated using the CKD-EPI 2020 equation. CHOL REF RANGE: BORDERLINE HIGH: 200-239 mg/dL HIGH: >=240 mg/dL Ordering Provider: YAIMA SOTO Report Released Date/Time: Apr 27, 2023 08:49 AM Reporting Lab: [place] [phone] Performing Lab: [place] [phone] [place] [address] COMPREHEN SIVE METABOLIC PANEL ASPARTATE AMINOTRANSF ERASE [ENZYMATIC ACTIVITY/VO LUME] IN SERUM OR PLASMA 25 U/L 5 - 34 04/15 Specimen Type: PLASMA Comment: DLDLREF RANGE: NEAR OR ABOVE OPTIMAL: 100-129 mg/dL BORDERLINE DLDLHIGH: 130-159 mg/dL HIGH: 160-189 mg/dL VERY HIGH: >=190 TRIG REF RANGE: BORDERLINE HIGH: 150-199 mg/dL HIGH: 200-499 mg/dL TRIG VERY HIGH: >=500 mg/dL CREA eGFR was calculated using the CKD-EPI 2020 equation. CHOL REF RANGE: BORDERLINE HIGH: 200-239 mg/dL HIGH: >=240 mg/dL Ordering Provider: YAIMA SOTO Report Released Date/Time: Apr 27, 2023 08:49 AM Reporting Lab: [place] [phone] Performing Lab: [place] [phone] [facility] COMPREHEN SIVE METABOLIC PANEL UREA NITROGEN [MASS/VOLUM E] IN SERUM OR PLASMA 13 mg/dL 8.4 - 25.7 04/15 Specimen Type: PLASMA Comment: DLDLREF RANGE: NEAR OR ABOVE OPTIMAL: 100-129 mg/dL BORDERLINE DLDLHIGH: 130-159 mg/dL HIGH: 160-189 mg/dL VERY HIGH: >=190 TRIG REF RANGE: BORDERLINE HIGH: 150-199 mg/dL HIGH: 200-499 mg/dL TRIG VERY HIGH: >=500 mg/dL CREA eGFR was calculated using the CKD-EPI 2020 equation. CHOL REF RANGE: BORDERLINE HIGH: 200-239 mg/dL HIGH: >=240 mg/dL Ordering Provider: YAIMA SOTO Report Released Date/Time: Apr 27, 2023 08:49 AM Reporting Lab: [place] [phone] Performing Lab: [place] [phone] [facility] COMPREHEN SIVE METABOLIC PANEL CALCIUM [MASS/VOLUM E] IN SERUM OR PLASMA 9.7 mg/dL 8.8 - 10.0 04/15 Specimen Type: PLASMA Comment: DLDLREF RANGE: NEAR OR ABOVE OPTIMAL: 100-129 mg/dL BORDERLINE DLDLHIGH: 130-159 mg/dL HIGH: 160-189 mg/dL VERY HIGH: >=190 TRIG REF RANGE: BORDERLINE HIGH: 150-199 mg/dL HIGH: 200-499 mg/dL TRIG VERY HIGH: >=500 mg/dL CREA eGFR was calculated using the CKD-EPI 2020 equation. CHOL REF RANGE: BORDERLINE HIGH: 200-239 mg/dL HIGH: >=240 mg/dL Ordering Provider: YAIMA SOTO Report Released Date/Time: Apr 27, 2023 08:49 AM Reporting Lab: [place] [id number] Performing Lab: [address] COMPREHEN SIVE METABOLIC PANEL CREATININE [MASS/VOLUM E] IN SERUM OR PLASMA 0.8 mg/dL 0.72 - 1.25 04/15 Specimen Type: PLASMA Comment: DLDLREF RANGE: NEAR OR ABOVE OPTIMAL: 100-129 mg/dL BORDERLINE DLDLHIGH: 130-159 mg/dL HIGH: 160-189 mg/dL VERY HIGH: >=190 TRIG REF RANGE: BORDERLINE HIGH: 150-199 mg/dL HIGH: 200-499 mg/dL TRIG VERY HIGH: >=500 mg/dL CREA eGFR was calculated using the CKD-EPI 2020 equation. CHOL REF RANGE: BORDERLINE HIGH: 200-239 mg/dL HIGH: >=240 mg/dL Ordering Provider: YAIMA SOTO Report Released Date/Time: Apr 27, 2023 08:49 AM Reporting Lab: [place] [id number] Performing Lab: [address] SIVE METABOLIC PANEL CARBON DIOXIDE, TOTAL [MOLES/VOLU ME] IN SERUM OR PLASMA 23 mmol/L 23 - 31 04/15 Specimen Type: PLASMA Comment: DLDLREF RANGE: NEAR OR ABOVE OPTIMAL: 100-129 mg/dL BORDERLINE DLDLHIGH: 130-159 mg/dL HIGH: 160-189 mg/dL VERY HIGH: >=190 TRIG REF RANGE: BORDERLINE HIGH: 150-199 mg/dL HIGH: 200-499 mg/dL TRIG VERY HIGH: >=500 mg/dL CREA eGFR was calculated using the CKD-EPI 2020 equation. CHOL REF RANGE: BORDERLINE HIGH: 200-239 mg/dL HIGH: >=240 mg/dL Ordering Provider: YAIMA SOTO Report Released Date/Time: Apr 27, 2023 08:49 AM Reporting Lab: [place] [phone] Performing Lab: [place] [phone] [facility] COMPREHEN SIVE METABOLIC PANEL GLUCOSE [MASS/VOLUM E] IN SERUM OR PLASMA 111 mg/dL 82 - 115 04/15 Specimen Type: PLASMA Comment: DLDLREF RANGE: NEAR OR ABOVE OPTIMAL: 100-129 mg/dL BORDERLINE DLDLHIGH: 130-159 mg/dL HIGH: 160-189 mg/dL VERY HIGH: >=190 TRIG REF RANGE: BORDERLINE HIGH: 150-199 mg/dL HIGH: 200-499 mg/dL TRIG VERY HIGH: >=500 mg/dL CREA eGFR was calculated using the CKD-EPI 2020 equation. CHOL REF RANGE: BORDERLINE HIGH: 200-239 mg/dL HIGH: >=240 mg/dL Ordering Provider: YAIMA SOTO Report Released Date/Time: Apr 27, 2023 08:49 AM Reporting Lab: [place] [phone] Performing Lab: [place] [phone] [facility] COMPREHEN SIVE METABOLIC PANEL PROTEIN [MASS/VOLUM E] IN SERUM OR PLASMA 6.7 g/dL 6.4 - 8.3 04/15 Specimen Type: PLASMA Comment: DLDLREF RANGE: NEAR OR ABOVE OPTIMAL: 100-129 mg/dL BORDERLINE DLDLHIGH: 130-159 mg/dL HIGH: 160-189 mg/dL VERY HIGH: >=190 TRIG REF RANGE: BORDERLINE HIGH: 150-199 mg/dL HIGH: 200-499 mg/dL TRIG VERY HIGH: >=500 mg/dL CREA eGFR was calculated using the CKD-EPI 2020 equation. CHOL REF RANGE: BORDERLINE HIGH: 200-239 mg/dL HIGH: >=240 mg/dL Ordering Provider: YAIMA SOTO Report Released Date/Time: Apr 27, 2023 08:49 AM Reporting Lab: [place] [phone] Performing Lab: [place] [phone] [facility] COMPREHEN SIVE METABOLIC PANEL SODIUM [MOLES/VOLU ME] IN SERUM OR PLASMA 138 mmol/L 136 - 145 04/15 Specimen Type: PLASMA Comment: DLDLREF RANGE: NEAR OR ABOVE OPTIMAL: 100-129 mg/dL BORDERLINE DLDLHIGH: 130-159 mg/dL HIGH: 160-189 mg/dL VERY HIGH: >=190 TRIG REF RANGE: BORDERLINE HIGH: 150-199 mg/dL HIGH: 200-499 mg/dL TRIG VERY HIGH: >=500 mg/dL CREA eGFR was calculated using the CKD-EPI 2020 equation. CHOL REF RANGE: BORDERLINE HIGH: 200-239 mg/dL HIGH: >=240 mg/dL Ordering Provider: YAIMA SOTO R Report Released Date/Time: Apr 27, 2023 08:49 AM Reporting Lab: [place] [phone] Performing Lab: [place] [phone] [place] [address] COMPREHEN SIVE METABOLIC PANEL CHLORIDE [MOLES/VOLU ME] IN SERUM OR PLASMA 105 mmol/L 98 - 107 04/15 Specimen Type: PLASMA Comment: DLDLREF RANGE: NEAR OR ABOVE OPTIMAL: 100-129 mg/dL BORDERLINE DLDLHIGH: 130-159 mg/dL HIGH: 160-189 mg/dL VERY HIGH: >=190 TRIG REF RANGE: BORDERLINE HIGH: 150-199 mg/dL HIGH: 200-499 mg/dL TRIG VERY HIGH: >=500 mg/dL CREA eGFR was calculated using the CKD-EPI 2020 equation. CHOL REF RANGE: BORDERLINE HIGH: 200-239 mg/dL HIGH: >=240 mg/dL Ordering Provider: YAIMA SOTO R Report Released Date/Time: Apr 27, 2023 08:49 AM Reporting Lab: [place] [phone] Performing Lab: [place] [phone] [facility] COMPREHEN SIVE METABOLIC PANEL BILIRUBIN.T OTAL [MASS/VOLUM E] IN SERUM OR PLASMA 1.1 mg/dL 0.2 - 1.2 04/15 Specimen Type: PLASMA Comment: DLDLREF RANGE: NEAR OR ABOVE OPTIMAL: 100-129 mg/dL BORDERLINE DLDLHIGH: 130-159 mg/dL HIGH: 160-189 mg/dL VERY HIGH: >=190 TRIG REF RANGE: BORDERLINE HIGH: 150-199 mg/dL HIGH: 200-499 mg/dL TRIG VERY HIGH: >=500 mg/dL CREA eGFR was calculated using the CKD-EPI 2020 equation. CHOL REF RANGE: BORDERLINE HIGH: 200-239 mg/dL HIGH: >=240 mg/dL Ordering Provider: YAIMA SOTO Report Released Date/Time: Apr 27, 2023 08:49 AM Reporting Lab: [place] [phone] Performing Lab: [place] [phone] [place] [address] COMPREHEN SIVE METABOLIC PANEL POTASSIUM [MOLES/VOLU ME] IN SERUM OR PLASMA 4.9 mmol/L 3.5 - 5.1 04/15 Specimen Type: PLASMA Comment: DLDLREF RANGE: NEAR OR ABOVE OPTIMAL: 100-129 mg/dL BORDERLINE DLDLHIGH: 130-159 mg/dL HIGH: 160-189 mg/dL VERY HIGH: >=190 TRIG REF RANGE: BORDERLINE HIGH: 150-199 mg/dL HIGH: 200-499 mg/dL TRIG VERY HIGH: >=500 mg/dL CREA eGFR was calculated using the CKD-EPI 2020 equation. CHOL REF RANGE: BORDERLINE HIGH: 200-239 mg/dL HIGH: >=240 mg/dL Ordering Provider: YAIMA SOTO Report Released Date/Time: Apr 27, 2023 08:49 AM Reporting Lab: [place] [phone] Performing Lab: [place] [phone] [place] [address] COMPREH SIVE METABOLIC PANEL ANION GAP IN SERUM OR PLASMA 14.9 mmol/L 10 - 20 04/15 Specimen Type: PLASMA Comment: DLDLREF RANGE: NEAR OR ABOVE OPTIMAL: 100-129 mg/dL BORDERLINE DLDLHIGH: 130-159 mg/dL HIGH: 160-189 mg/dL VERY HIGH: >=190 TRIG REF RANGE: BORDERLINE HIGH: 150-199 mg/dL HIGH: 200-499 mg/dL TRIG VERY HIGH: >=500 mg/dL CREA eGFR was calculated using the CKD-EPI 2020 equation. CHOL REF RANGE: BORDERLINE HIGH: 200-239 mg/dL HIGH: >=240 mg/dL Ordering Provider: YAIMA SOTO Report Released Date/Time: Apr 27, 2023 08:49 AM Reporting Lab: [address] [phone] Performing Lab: [address] [phone] [facility] COMPREHEN SIVE METABOLIC PANEL GLOMERULAR FILTRATION RATE/1.73 SQ M.PREDICTED [VOLUME RATE/AREA] IN SERUM, PLASMA OR BLOOD BY CREATININE- BASED FORMULA (CKD-EPI 2020) 91.0 mL/min 04/15 Specimen Type: PLASMA Comment: DLDLREF RANGE: NEAR OR ABOVE OPTIMAL: 100-129 mg/dL BORDERLINE DLDLHIGH: 130-159 mg/dL HIGH: 160-189 mg/dL VERY HIGH: >=190 TRIG REF RANGE: BORDERLINE HIGH: 150-199 mg/dL HIGH: 200-499 mg/dL TRIG VERY HIGH: >=500 mg/dL CREA eGFR was calculated using the CKD-EPI 2020 equation. CHOL REF RANGE: BORDERLINE HIGH: 200-239 mg/dL HIGH: >=240 mg/dL Ordering Provider: YAIMA SOTO Report Released Date/Time: Apr 27, 2023 08:49 AM Reporting Lab: [address] [phone] Performing Lab: [address] [phone] [facility] MICROALBU MIN/CREAT ININE RATIO PANEL MICROALBUMI N [MASS/VOLUM E] IN URINE 2 mg/dL <10 - 10 04/15 Specimen Type: URINE No comment entered. Ordering Provider: YAIMA SOTO Report Released Date/Time: Apr 27, 2023 08:49 AM Reporting Lab: [address] [phone] Performing Lab: [address] [phone] [facility] MICROALBU MIN/CREAT ININE RATIO PANEL CREATININE [MASS/VOLUM E] IN URINE 52.94 mg/dL 04/15 Specimen Type: URINE No comment entered. Ordering Provider: YAIMA SOTO Report Released Date/Time: Apr 27, 2023 08:49 AM Reporting Lab: [address] [phone] Performing Lab: [address] [phone] [facility] MICROALBU MIN/CREAT ININE RATIO PANEL MICROALBUMI N/CREATININ E [MASS RATIO] IN URINE 37.80 mg/g <19.9 - 19.9 04/15 H Specimen Type: URINE No comment entered. Ordering Provider: YAIMA SOTO Report Released Date/Time: Apr 27, 2023 08:49 AM Reporting Lab: [place] [phone] Performing Lab: [place] [phone] [place] [address] CBC LEUKOCYTES [#/VOLUME] IN BLOOD BY AUTOMATED COUNT 6.2 10*3/u L 3.6 - 11.0 04/15 Specimen Type: BLOOD No comment entered. Ordering Provider: YAIMA SOTO Report Released Date/Time: Apr 27, 2023 08:49 AM Reporting Lab: [place] [phone] Performing Lab: [place] [id number] CBC ERYTHROCYTE S [#/VOLUME] IN BLOOD BY AUTOMATED COUNT 3.72 10*6/u L 4.47 - 5.83 04/15 L Specimen Type: BLOOD No comment entered. Ordering Provider: YAIMA SOTO Report Released Date/Time: Apr 27, 2023 08:49 AM Reporting Lab: [place] [phone] Performing Lab: [place] [id number] CBC HEMOGLOBIN [MASS/VOLUM E] IN BLOOD 12.2 g/dL 13.6 - 17.4 04/15 L Specimen Type: BLOOD No comment entered. Ordering Provider: YAIMA SOTO Report Released Date/Time: Apr 27, 2023 08:49 AM Reporting Lab: [place] [phone] Performing Lab: [place] [id number] [facility] HEMATOCRIT [VOLUME FRACTION] OF BLOOD BY AUTOMATED COUNT 35.8 40.0 - 51.0 04/15 L Specimen Type: BLOOD No comment entered. Ordering Provider: YAIMA SOTO Report Released Date/Time: Apr 27, 2023 08:49 AM Reporting Lab: [place] [phone] Performing Lab: [place] [id number] CBC MCV [ENTITIC VOLUME] BY AUTOMATED COUNT 96.3 fL 80.0 - 96.0 04/15 H Specimen Type: BLOOD No comment entered. Ordering Provider: YAIMA SOTO R Report Released Date/Time: Apr 27, 2023 08:49 AM Reporting Lab: [place] [phone] Performing Lab: [place] [id number] CBC MCH [ENTITIC MASS] BY AUTOMATED COUNT 32.8 pg 27.0 - 31.0 04/15 H Specimen Type: BLOOD No comment entered. Ordering Provider: YAIMA SOTO Report Released Date/Time: Apr 27, 2023 08:49 AM Reporting Lab: [place] [phone] Performing Lab: [place] [id number] CBC MCHC [MASS/VOLUM E] BY AUTOMATED COUNT 34.1 g/dL 31.5 - 36.5 04/15 Specimen Type: BLOOD No comment entered. Ordering Provider: YAIMA SOTO Report Released Date/Time: Apr 27, 2023 08:49 AM Reporting Lab: [place] [phone] Performing Lab: [place] [id number] CBC PLATELETS [#/VOLUME] IN BLOOD BY AUTOMATED COUNT 194 10*3/u L 150 - 400 04/15 Specimen Type: BLOOD No comment entered. Ordering Provider: YAIMA SOTO Report Released Date/Time: Apr 27, 2023 08:49 AM Reporting Lab: [place] [phone] Performing Lab: [place] [phone] [facility] CBC LYMPHOCYTES /100 LEUKOCYTES IN BLOOD BY AUTOMATED COUNT 30.0 21.0 - 51.0 04/15 Specimen Type: BLOOD No comment entered. Ordering Provider: YAIMA SOTO R Report Released Date/Time: Apr 27, 2023 08:49 AM Reporting Lab: [place] [phone] Performing Lab: [place] [phone] [place] [address] CBC MONOCYTES/1 00 LEUKOCYTES IN BLOOD BY AUTOMATED COUNT 10.3 4.0 - 8.0 04/15 H Specimen Type: BLOOD No comment entered. Ordering Provider: YAIMA SOTO R Report Released Date/Time: Apr 27, 2023 08:49 AM Reporting Lab: [place] [phone] Performing Lab: [place] [id number] CBC NUCLEATED ERYTHROCYTE S/100 LEUKOCYTES [RATIO] IN BLOOD BY MANUAL COUNT 0.0 /100{W BCs} 04/15 Specimen Type: BLOOD No comment entered. Ordering Provider: YAIMA SOTO R Report Released Date/Time: Apr 27, 2023 08:49 AM Reporting Lab: [place] [phone] Performing Lab: [place] [id number] CBC ERYTHROCYTE DISTRIBUTIO N WIDTH [RATIO] BY AUTOMATED COUNT 13.5 11.2 - 15.8 04/15 Specimen Type: BLOOD No comment entered. Ordering Provider: YAIMA SOTO Report Released Date/Time: Apr 27, 2023 08:49 AM Reporting Lab: [place] [phone] Performing Lab: [place] [id number] CBC NEUTROPHILS /100 LEUKOCYTES IN BLOOD BY AUTOMATED COUNT 51.3 54.0 - 78.0 04/15 L Specimen Type: BLOOD No comment entered. Ordering Provider: YAIMA SOTO R Report Released Date/Time: Apr 27, 2023 08:49 AM Reporting Lab: [place] [phone] Performing Lab: [place] [phone] [facility] CBC EOSINOPHILS /100 LEUKOCYTES IN BLOOD BY AUTOMATED COUNT 7.8 0.0 - 3.0 04/15 H Specimen Type: BLOOD No comment entered. Ordering Provider: YAIMA SOTO Report Released Date/Time: Apr 27, 2023 08:49 AM Reporting Lab: [place] [phone] Performing Lab: [place] [phone] CBC BASOPHILS/1 00 LEUKOCYTES IN BLOOD BY AUTOMATED COUNT 0.6 0.0 - 3.0 04/15 Specimen Type: BLOOD No comment entered. Ordering Provider: YAIMA SOTO Report Released Date/Time: Apr 27, 2023 08:49 AM Reporting Lab: [place] [phone] Performing Lab: [place] [phone] CBC LYMPHOCYTES [#/VOLUME] IN BLOOD BY AUTOMATED COUNT 1.8 10*3/u L 0.8 - 5.0 04/15 Specimen Type: BLOOD No comment entered. Ordering Provider: YAIMA SOTO Report Released Date/Time: Apr 27, 2023 08:49 AM Reporting Lab: [place] [phone] Performing Lab: [place] [id number] CBC NEUTROPHILS [#/VOLUME] IN BLOOD 3.2 10*3/u L 1.9 - 8.6 04/15 Specimen Type: BLOOD No comment entered. Ordering Provider: YAIMA SOTO Report Released Date/Time: Apr 27, 2023 08:49 AM Reporting Lab: [place] [phone] Performing Lab: [place] [phone] CBC BASOPHILS [#/VOLUME] IN BLOOD BY AUTOMATED COUNT 0.0 10*3/u L 0.0 - 0.3 04/15 Specimen Type: BLOOD No comment entered. Ordering Provider: YAIMA SOTO R Report Released Date/Time: Apr 27, 2023 08:49 AM Reporting Lab: [place] [phone] Performing Lab: [place] [phone] [facility] CBC MONOCYTES [#/VOLUME] IN BLOOD BY AUTOMATED COUNT 0.6 10*3/u L 0.1 - 0.9 04/15 Specimen Type: BLOOD No comment entered. Ordering Provider: YAIMA SOTO Report Released Date/Time: Apr 27, 2023 08:49 AM Reporting Lab: [place] [phone] Performing Lab: [place] [phone] [place] [address] CBC EOSINOPHILS [#/VOLUME] IN BLOOD BY AUTOMATED COUNT 0.5 10*3/u L 0.0 - 0.3 04/15 H Specimen Type: BLOOD No comment entered. Ordering Provider: YAIMA SOTO Report Released Date/Time: Apr 27, 2023 08:49 AM Reporting Lab: [place] [phone] Performing Lab: [place] [phone] [place] [address] CBC PLATELET MEAN VOLUME [ENTITIC VOLUME] IN BLOOD BY AUTOMATED COUNT 8.9 fL 7.4 - 11.4 04/15 Specimen Type: BLOOD No comment entered. Ordering Provider: YAIMA SOTO Report Released Date/Time: Apr 27, 2023 08:49 AM Reporting Lab: [place] [phone] Performing Lab: [place] [phone] LIPID PROFILE CHOLESTEROL [MASS/VOLUM E] IN SERUM OR PLASMA 124 mg/dL 135 - 200 04/20 L Specimen Type: SERUM Comment: CREATININE eGFR was calculated using the CKD-EPI 2020 equation. TRIGLYCERID E REF RANGE: NORMAL <150 mg/dL BORDERLINE HIGH: 150-199 TRIGLYCERID E mg/dL HIGH: 200-499 mg/dL VERY HIGH: >=500 mg/dL Ordering Provider: YAIMA SOTO Report Released Date/Time: Apr 28, 2022 08:24 AM Reporting Lab: [address] [phone] Performing Lab: [place] [phone] [facility] LIPID PROFILE CHOLESTEROL IN LDL [MASS/VOLUM E] IN SERUM OR PLASMA 71.0 mg/dL 0 - 110 04/20 Specimen Type: SERUM Comment: CREATININE eGFR was calculated using the CKD-EPI 2020 equation. TRIGLYCERID E REF RANGE: NORMAL <150 mg/dL BORDERLINE HIGH: 150-199 TRIGLYCERID E mg/dL HIGH: 200-499 mg/dL VERY HIGH: >=500 mg/dL Ordering Provider: YAIMA SOTO Report Released Date/Time: Apr 28, 2022 08:24 AM Reporting Lab: [place] [phone] Performing Lab: [place] [phone] LIPID PROFILE CHOLESTEROL IN HDL [MASS/VOLUM E] IN SERUM OR PLASMA 45 mg/dL 40 - 60 04/20 Specimen Type: SERUM Comment: CREATININE eGFR was calculated using the CKD-EPI 2020 equation. TRIGLYCERID E REF RANGE: NORMAL <150 mg/dL BORDERLINE HIGH: 150-199 TRIGLYCERID E mg/dL HIGH: 200-499 mg/dL VERY HIGH: >=500 mg/dL Ordering Provider: YAIMA SOTO Report Released Date/Time: Apr 28, 2022 08:24 AM Reporting Lab: [place] [phone] Performing Lab: [place] [phone] [facility] LIPID PROFILE TRIGLYCERID E [MASS/VOLUM E] IN SERUM OR PLASMA 118 mg/dL 0 - 149 04/20 Specimen Type: SERUM Comment: CREATININE eGFR was calculated using the CKD-EPI 2020 equation. TRIGLYCERID E REF RANGE: NORMAL <150 mg/dL BORDERLINE HIGH: 150-199 TRIGLYCERID E mg/dL HIGH: 200-499 mg/dL VERY HIGH: >=500 mg/dL Ordering Provider: YAIMA SOTO Report Released Date/Time: Apr 28, 2022 08:24 AM Reporting Lab: [address] [phone] Performing Lab: [place] [phone] [place] [address] MAGNESIUM MAGNESIUM [MASS/VOLUM E] IN SERUM OR PLASMA 1.9 mg/dL 1.8 - 2.4 04/20 Specimen Type: SERUM Comment: CREATININE eGFR was calculated using the CKD-EPI 2020 equation. TRIGLYCERID E REF RANGE: NORMAL <150 mg/dL BORDERLINE HIGH: 150-199 TRIGLYCERID E mg/dL HIGH: 200-499 mg/dL VERY HIGH: >=500 mg/dL Ordering Provider: YAIMA SOTO R Report Released Date/Time: Apr 28, 2022 08:24 AM Reporting Lab: [place] [phone] Performing Lab: [place] [phone] COMPREHEN SIVE METABOLIC PANEL ALBUMIN [MASS/VOLUM E] IN SERUM OR PLASMA 3.8 g/dL 3.2 - 4.8 04/20 Specimen Type: SERUM Comment: CREATININE eGFR was calculated using the CKD-EPI 2020 equation. TRIGLYCERID E REF RANGE: NORMAL <150 mg/dL BORDERLINE HIGH: 150-199 TRIGLYCERID E mg/dL HIGH: 200-499 mg/dL VERY HIGH: >=500 mg/dL Ordering Provider: YAIMA SOTO Report Released Date/Time: Apr 28, 2022 08:24 AM Reporting Lab: [place] [phone] Performing Lab: [place] [phone] COMPREHEN SIVE METABOLIC PANEL ALKALINE PHOSPHATASE [ENZYMATIC ACTIVITY/VO LUME] IN SERUM OR PLASMA 66 U/L 46 - 116 04/20 Specimen Type: SERUM Comment: CREATININE eGFR was calculated using the CKD-EPI 2020 equation. TRIGLYCERID E REF RANGE: NORMAL <150 mg/dL BORDERLINE HIGH: 150-199 TRIGLYCERID E mg/dL HIGH: 200-499 mg/dL VERY HIGH: >=500 mg/dL Ordering Provider: YAIMA SOTO Report Released Date/Time: Apr 28, 2022 08:24 AM Reporting Lab: [place] [phone] Performing Lab: [place] [phone] COMPREHEN SIVE METABOLIC PANEL ALANINE AMINOTRANSF ERASE [ENZYMATIC ACTIVITY/VO LUME] IN SERUM OR PLASMA 26 U/L 10 - 45 04/20 Specimen Type: SERUM Comment: CREATININE eGFR was calculated using the CKD-EPI 2020 equation. TRIGLYCERID E REF RANGE: NORMAL <150 mg/dL BORDERLINE HIGH: 150-199 TRIGLYCERID E mg/dL HIGH: 200-499 mg/dL VERY HIGH: >=500 mg/dL Ordering Provider: YAIMA SOTO Report Released Date/Time: Apr 28, 2022 08:24 AM Reporting Lab: [place] [phone] Performing Lab: [place] [phone] [place] [address] COMPREHEN SIVE METABOLIC PANEL ASPARTATE AMINOTRANSF ERASE [ENZYMATIC ACTIVITY/VO LUME] IN SERUM OR PLASMA 26 U/L 0 - 33.9 04/20 Specimen Type: SERUM Comment: CREATININE eGFR was calculated using the CKD-EPI 2020 equation. TRIGLYCERID E REF RANGE: NORMAL <150 mg/dL BORDERLINE HIGH: 150-199 TRIGLYCERID E mg/dL HIGH: 200-499 mg/dL VERY HIGH: >=500 mg/dL Ordering Provider: YAIMA SOTO Report Released Date/Time: Apr 28, 2022 08:24 AM Reporting Lab: [place] [phone] Performing Lab: [place] [phone] [place] [address] COMPREHEN SIVE METABOLIC PANEL UREA NITROGEN [MASS/VOLUM E] IN SERUM OR PLASMA 19 mg/dL 9 - 04/20 Specimen Type: SERUM Comment: CREATININE eGFR was calculated using the CKD-EPI 2020 equation. TRIGLYCERID E REF RANGE: NORMAL <150 mg/dL BORDERLINE HIGH: 150-199 TRIGLYCERID E mg/dL HIGH: 200-499 mg/dL VERY HIGH: >=500 mg/dL Ordering Provider: YAIMA SOTO Report Released Date/Time: Apr 28, 2022 08:24 AM Reporting Lab: [place] [phone] Performing Lab: [place] [phone] [facility] COMPREHEN SIVE METABOLIC PANEL CALCIUM [MASS/VOLUM E] IN SERUM OR PLASMA 9.4 mg/dL 8.7 - 10.4 04/20 Specimen Type: SERUM Comment: CREATININE eGFR was calculated using the CKD-EPI 2020 equation. TRIGLYCERID E REF RANGE: NORMAL <150 mg/dL BORDERLINE HIGH: 150-199 TRIGLYCERID E mg/dL HIGH: 200-499 mg/dL VERY HIGH: >=500 mg/dL Ordering Provider: YAIMA SOTO Report Released Date/Time: Apr 28, 2022 08:24 AM Reporting Lab: [place] [phone] Performing Lab: [place] [phone] COMPREHEN SIVE METABOLIC PANEL CREATININE [MASS/VOLUM E] IN SERUM OR PLASMA 0.9 mg/dL 0.70 - 1.30 04/20 Specimen Type: SERUM Comment: CREATININE eGFR was calculated using the CKD-EPI 2020 equation. TRIGLYCERID E REF RANGE: NORMAL <150 mg/dL BORDERLINE HIGH: 150-199 TRIGLYCERID E mg/dL HIGH: 200-499 mg/dL VERY HIGH: >=500 mg/dL Ordering Provider: YAIMA SOTO Report Released Date/Time: Apr 28, 2022 08:24 AM Reporting Lab: [place] [phone] Performing Lab: [address] COMPREHEN SIVE METABOLIC PANEL CARBON DIOXIDE, TOTAL [MOLES/VOLU ME] IN SERUM OR PLASMA 26 mmol/L 21 - 32 04/20 Specimen Type: SERUM Comment: CREATININE eGFR was calculated using the CKD-EPI 2020 equation. TRIGLYCERID E REF RANGE: NORMAL <150 mg/dL BORDERLINE HIGH: 150-199 TRIGLYCERID E mg/dL HIGH: 200-499 mg/dL VERY HIGH: >=500 mg/dL Ordering Provider: YAIMA SOTO Report Released Date/Time: Apr 28, 2022 08:24 AM Reporting Lab: [place] [phone] Performing Lab: [place] [phone] [place] [address] COMPREHEN SIVE METABOLIC PANEL GLUCOSE [MASS/VOLUM E] IN SERUM OR PLASMA 108 mg/dL 74 - 106 04/20 H Specimen Type: SERUM Comment: CREATININE eGFR was calculated using the CKD-EPI 2020 equation. TRIGLYCERID E REF RANGE: NORMAL <150 mg/dL BORDERLINE HIGH: 150-199 TRIGLYCERID E mg/dL HIGH: 200-499 mg/dL VERY HIGH: >=500 mg/dL Ordering Provider: YAIMA SOTO R Report Released Date/Time: Apr 28, 2022 08:24 AM Reporting Lab: [place] [phone] Performing Lab: [place] [phone] [place] [address] COMPREHEN SIVE METABOLIC PANEL PROTEIN [MASS/VOLUM E] IN SERUM OR PLASMA 6.4 g/dL 6.4 - 8.5 04/20 Specimen Type: SERUM Comment: CREATININE eGFR was calculated using the CKD-EPI 2020 equation. TRIGLYCERID E REF RANGE: NORMAL <150 mg/dL BORDERLINE HIGH: 150-199 TRIGLYCERID E mg/dL HIGH: 200-499 mg/dL VERY HIGH: >=500 mg/dL Ordering Provider: YAIMA SOTO Report Released Date/Time: Apr 28, 2022 08:24 AM Reporting Lab: [place] [phone] Performing Lab: [place] [phone] [place] [address] COMPREHEN SIVE METABOLIC PANEL SODIUM [MOLES/VOLU ME] IN SERUM OR PLASMA 139 mmol/L 136 - 148 04/20 Specimen Type: SERUM Comment: CREATININE eGFR was calculated using the CKD-EPI 2020 equation. TRIGLYCERID E REF RANGE: NORMAL <150 mg/dL BORDERLINE HIGH: 150-199 TRIGLYCERID E mg/dL HIGH: 200-499 mg/dL VERY HIGH: >=500 mg/dL Ordering Provider: YAIMA SOTO Report Released Date/Time: Apr 28, 2022 08:24 AM Reporting Lab: [place] [phone] Performing Lab: [place] [phone] [facility] COMPREHEN SIVE METABOLIC PANEL CHLORIDE [MOLES/VOLU ME] IN SERUM OR PLASMA 104 mmol/L 98 - 107 04/20 Specimen Type: SERUM Comment: CREATININE eGFR was calculated using the CKD-EPI 2020 equation. TRIGLYCERID E REF RANGE: NORMAL <150 mg/dL BORDERLINE HIGH: 150-199 TRIGLYCERID E mg/dL HIGH: 200-499 mg/dL VERY HIGH: >=500 mg/dL Ordering Provider: YAIMA SOTO R Report Released Date/Time: Apr 28, 2022 08:24 AM Reporting Lab: [place] [phone] Performing Lab: [place] [phone] [place] [address] COMPREHEN SIVE METABOLIC PANEL BILIRUBIN.T OTAL [MASS/VOLUM E] IN SERUM OR PLASMA 1.0 mg/dL 0.3 - 1.2 04/20 Specimen Type: SERUM Comment: CREATININE eGFR was calculated using the CKD-EPI 2020 equation. TRIGLYCERID E REF RANGE: NORMAL <150 mg/dL BORDERLINE HIGH: 150-199 TRIGLYCERID E mg/dL HIGH: 200-499 mg/dL VERY HIGH: >=500 mg/dL Ordering Provider: YAIMA SOTO R Report Released Date/Time: Apr 28, 2022 08:24 AM Reporting Lab: [place] [phone] Performing Lab: [place] [phone] [place] [address] COMPREHEN SIVE METABOLIC PANEL POTASSIUM [MOLES/VOLU ME] IN SERUM OR PLASMA 4.9 mmol/L 3.5 - 5.1 04/20 Specimen Type: SERUM Comment: CREATININE eGFR was calculated using the CKD-EPI 2020 equation. TRIGLYCERID E REF RANGE: NORMAL <150 mg/dL BORDERLINE HIGH: 150-199 TRIGLYCERID E mg/dL HIGH: 200-499 mg/dL VERY HIGH: >=500 mg/dL Ordering Provider: YAIMA SOTO Report Released Date/Time: Apr 28, 2022 08:24 AM Reporting Lab: [place] [phone] Performing Lab: [place] [phone] [place] [address] COMPREHEN SIVE METABOLIC PANEL ANION GAP IN SERUM OR PLASMA 13.9 mmol/L 10 - 04/20 Specimen Type: SERUM Comment: CREATININE eGFR was calculated using the CKD-EPI 2020 equation. TRIGLYCERID E REF RANGE: NORMAL <150 mg/dL BORDERLINE HIGH: 150-199 TRIGLYCERID E mg/dL HIGH: 200-499 mg/dL VERY HIGH: >=500 mg/dL Ordering Provider: YAIMA OSTO Report Released Date/Time: Apr 28, 2022 08:24 AM Reporting Lab: [place] [phone] Performing Lab: [place] [phone] [facility] METABOLIC PANEL GLOMERULAR FILTRATION RATE/1.73 SQ M.PREDICTED [VOLUME RATE/AREA] IN SERUM OR PLASMA BY CREATININE- BASED FORMULA (MDRD) 88 mL/min 04/20 Specimen Type: SERUM Comment: CREATININE eGFR was calculated using the CKD-EPI 2020 equation. TRIGLYCERID E REF RANGE: NORMAL <150 mg/dL BORDERLINE HIGH: 150-199 TRIGLYCERID E mg/dL HIGH: 200-499 mg/dL VERY HIGH: >=500 mg/dL Ordering Provider: YAIMA SOTO Report Released Date/Time: Apr 28, 2022 08:24 AM Reporting Lab: [address] [phone] Performing Lab: [place] [phone] [facility] Vital Signs Combined list of inpatient and outpatient Vital Signs from Department of Defense and Veterans Affairs, ranging from 12 months to all on record, depending upon the facility. Vital Sign Value Date Comments Source SYSTOLIC BLOOD PRESSURE 124 04/25/2024 09:28:48 [facility] DIASTOLIC BLOOD PRESSURE 72 04/25/2024 09:28:48 [facility] PULSE OXIMETRY 97 04/25/2024 09:28:[address] [facility] WEIGHT 202.5 04/25/2024 09:28:48 [facility] BMI 33 kg/m2 04/25/2024 09:28:48 [facility] PAIN 4 04/25/2024 09:28:48 [facility] TEMPERATURE 98.5 04/25/2024 09:28:48 [facility] PULSE 51 04/25/2024 09:28:48 [facility] RESPIRATION 16 04/25/2024 09:28:48 [facility] Encounters Combined list of: 1) Encounters from Department of Veterans Affairs facilities going backup to the last 18 months, not all VA inpatient encounters are included; 2) Encounters from the Department of [facility] facilities going backup to 280 months. Location Location Details Encounter Type Encounter Number Reason For Visit Attending Provider ADM Date DC Date Status Disposition Source [facility] Outpatient Encounter [id number] 03/26 [facility] Outpatient Encounter [id number] 04/25 [facility] OFFICE O/P EST MOD 30 MIN [id number] Diagnos is: ICD-10- CM E11.9 Type 2 diabete s mellitu s without complic ations CHARLES,A BRITTNEY R 04/25 [facility] Social History Combined list of available smoking, tobacco, and other social history from Department of Defense and Veterans Affairs facilities. Social History Type Response Date Comment Sourc e Tobacco smoking status TNIS VA-TOBACCO NEVER USED 04/25/2024 [facility] History of tobacco use VA-TOBACCO NEVER USED 04/27/2023 [facility] History of tobacco use VA-TOBACCO FORMER USER 04/28/2022 [facility] History of tobacco use NE-TOBACCO QUIT 1 5 YRS OR MORE 05/06/2021 [facility] History of tobacco use VA-TOBACCO NEVER USED 06/11/2018 [facility] History of tobacco use QUIT TOBACCO >7 YEARS AGO 8 [facility] History of tobacco use LIFETIME NON-USER OF TOBACCO 05/29/2007 [facility] History of tobacco use LIFETIME NON-USER OF TOBACCO 07/24/2006 [facility] History of tobacco use TOBACCO LIFELONG NON USER 5 [facility] History of tobacco use TOBACCO [place]IF[place] NON USER 4 [facility] History of tobacco use TOBACCO [place]IFELONG NON USER 2 [facility] Plan of Care List of future care activities from Department of Veterans Affairs facilities. Additional future care activities may be listed in the Assessment and Plan section. Date/Time Care Activity Care Activity Detail Facili ty 04/17/2025 AMBULATORY - NONE AMBULATORY - NONE [facility]
--- OUTSIDE RECORDS SUMMARY | 2025-02-17 08:20 | XMS_ITS | Clinical Summary ---
Author Organization [facility] Address [id number] [address] [place] [address] Care Team Providers Care Signal Intelligence/Electronic Warfare Name Role Phone Unavailable Primary Care Provider Unavailabl e Allergies Active Allergy Reactions Criticality Noted Date Comments Penicillins Other (See Comments) Medium 08/06/2014 Other reaction(s): Unknown Medications lisinopril-hydr oCHLOROthiazide (PRINZIDE,ZESTO RETIC) 20-12.5 mg per tablet Take 1 tablet by mouth daily. Active atorvastatin (LIPITOR) 20 mg tablet Take 20 mg by mouth daily. Active metoprolol tartrate (LOPRESSOR) 25 mg tablet Take 25 mg by mouth 2 (two) times a day. 3 06/20/2018 Active aspirin 81 mg Take 81 mg by mouth daily. Active atorvastatin (LIPITOR) 40 mg tablet Take 0.5 tablets by mouth daily. Active Family History Medical History Relation Name Comments Heart attack Father Cancer Mother Relation Name Status Comments Father Mother Social History Tobacco Use Types Packs/Day Years Used Date Smoking Tobacco: Never Smokeless Tobacco: Never Alcohol Use Standard Drinks/Week Comments Yes 3 (1 standard drink = 0.6 oz pur e alcohol) Childcare Answer Date Recorded Childcare Unknown 12/26/2018 Employment Answer Date Recorded Employment Unknown 12/26/2018 Purpose - Life Answer Date Recorded Purpose and direction in life Unknown Sex and Gender Information Value Date Recorded Sex Assigned at Not on file Legal Sex Male 11:32 AM EDT Gender Identity Not on file Sexual Orientation Not on file Last Filed Vital Signs Vital Sign Reading Time Taken Comments Blood Pressure 136/64 09/26/2019 9:04 AM EDT Pulse 57 09/26/2019 9:04 AM EDT Temperature - - Respiratory Rate - - Oxygen Saturation 98% 09/26/2019 8:59 AM EDT Inhaled Oxygen Concentration - - Weight 101.4 kg (223 lb 9.6 oz) 09/26/2019 8:59 AM EDT Height 168.9 cm (5' 6.5 ) 09/26/2019 8:59 AM EDT Body Mass Index 35.55 09/26/2019 8:59 AM EDT Plan of Treatment Health Maintenance Due Date Last Done Comments Depression Screening 1957 Tobacco Screening 1957 Zoster (Shingles) Vaccine (1 of 2) 02/14/1996 Fall Risk Screening 2011 DTaP,Tdap and Td Vaccines (1 - Tdap) 06/20/2013 12/0 10/2012 Influenza Vaccine 03/17/2025 Medical Devices Not on file Insurance [employer] MEDICARE
--- OUTSIDE RECORDS SUMMARY | 2025-02-17 08:21 | XMS_ITS | Patient Health Record ---
Author Organization [facility] Address [address] [place] [address] Care Team Providers Care Cooking Teacher Name Role Phone JUAN DAVID SEGUNDO LISSA Primary Care Provider Unavaila Cristhian Santos Unavailable [phone] PHILIP TALAVERA CNP Unavailable Unavailable xxDeisy Mir Unavailable [phone] Allergies Allergen (clinical drug ingredient) Drug/Non Drug Allergy documented on EMR Reaction Allergy Type Onset Date Status PENICILLIN (uncoded) Unknown Allergy Active Results Component Value Reference Range Notes Surgery Scheduling Reviewed date:05/09/2024 08:46:51 AM Interpretation: Performing Lab: Notes/Report: Social Sec number: [id number] Primary Insurance Company: MEDICARE Surgeon/Assist: [place] Surgery Location: [facility] Surgery Date & Time: 04/08/24 Surgery End Time: 30 MINUTES Procedure: RIGHT ENDOSCOPIC CAR PAL TUNNEL RELEASE, [id number] Diagnosis: RIGHT CARPAL TUNNEL SYNDROME Admission Type: OUTPATIENT Anesthesia Type/CPNB: LOCAL/MAC Post-op Appointment Date: 2 WKS Latex Allergy NO Lab Location: [facility] Laboratory Equipment Cleaner: ANA Gallagher Physician: DR. SCHMITT Reason For Referral Reason LEV................. .......PLEASE OBTAIN AUTHORIZATION FOR RIGHT ENDOSCOPIC CARPAL TUNNEL RELEASE Diagnosis 1 Preop testing (Z01.8 18) Referral Organization [facility] Referring Provider First Name Cristhian Referring Provider Last Name Alesia Referring Provider Speciality Orthopedic Surgery Referred Organization [facility] Outpatient Referred Address [address] [place], [place],[address], Procedure 1 Arthroscopy, wrist, w/release of trans carpal lig (30838) General Notes Anya Mendoza 024 12:41:38 PM >PER AVAILITY, PATIENT IS ACTIVE PART A AND PART B, NO AUTH REQUIRED MA NOTIFIED REF FAXED TO [facility] Priority Routine Reason LEV................. .........PLEASE OBTAIN AUTHORIZATION FOR LEFT ENDOSCOPIC CARPAL TUNNEL RELEASE Diagnosis 1 Preop testing (Z01.8 18) Diagnosis 2 Bilateral carpal renan sultana syndrome (G56.03) Referral Organization [facility] Referring Provider First Name Cristhian Referring Provider Last Name Alesia Referring Provider Speciality Orthopedic Surgery Referred Organization [facility] Outpatient Referred Address [address], [place],[address], Procedure 1 Arthroscopy, wrist, w/release of trans carpal lig (89058) General Notes Anya Mendoza 024 12:43:22 PM >PER AVAILITY, PATIENT IS ACTIVE PART A AND PART B, NO AUTH REQUIRED MA NOTIFIED REF FAXED TO [facility] Priority Routine Medications Medication SIG (Take, Route, Frequency, Duration) Notes Start Date End Date Status multivitamin Active metFORMIN Active Xtandi Active aspirin Active Calcium 600+D Active lisinopril Active atorvastatin Active metoprolol Active glimepiride Active Social History Tobacco Use: Social History Observation Description Date Details (start date - stop date) Never Smoker NA - NA AUDIT-C (Standard) Question Answer Notes Did you have a drink contain ing alcohol in the past year? Yes How often did you have six o r more drinks on one occasion in the past year? Never (0 point) How many drinks did you have on a typical day when you were drinking in the past year? 1 or 2 drinks (0 point) How often did you have a dri nk containing alcohol in the past year? Monthly or less (1 point) Points 1 Interpretation Negative Tobacco Control (Standard) Question Answer Notes Tobacco use: Nonsmoker Problems Problem Type SNOMED Code ICD Code Onset Dates Problem Status W/U Status Risk Notes Problem Carpal tunnel syndrome (27567870) Right carpal tunnel syndrome (G56.01) Active confirmed Problem Carpal tunnel syndrome (23385349) Left carpal tunnel syndrome (G56.02) Active confirmed Problem 412814723 Paresthesia of both hands (R20.2) Active confirmed Problem 52471811693160990 Bilateral carpal tunnel syndrome (G56.03) Active confirmed Problem 559118772279971 Arthritis of right hand (M19.041) Active confirmed Vital Signs Height 5'6 in 03/11/2024 Weight 200 lbs 03/11/2024 BMI 32.28 03/11/2024 Encounters Encounter Location Date Provider Diagnosis [facility] Office [address] [place] [address] [place] [address] 03/11/2024 Cristhian Dumas Bilateral carpal tunnel syndrome G56.[address] [facility] Outpatient [address] [place] [address] 04/08/2024 Cristhian [place] Right carpal tunnel syndrome G56.[address] [facility] Outpatient [address] [place] [address] 04/22/2024 Cristhian Dumas Left carpal tunnel syndrome G56.02 [facility] Office [address] [place] [address] [place] [address] 05/06[facility]20[facility] Bilateral carpal tunnel syndrome G56.03 Assessments Encounter Date Diagnosis (ICD Code) Assessment Notes Treatment Notes Treatment Clinical Notes Section Notes 03/11/2024 Bilateral carpal tunnel syndrome (ICD-10 - G56.03) 04/08/2024 Right carpal tunnel syndrome (ICD-10 - G56.01) 04/22/2024 Left carpal tunnel syndrome (ICD-10 - G56.02) 05/06/2024 Bilateral carpal tunnel syndrome (ICD-10 - G56.03) 03/11/2024 Other For cervical spine he will continue with pain management. For his severe bilateral carpal tunnel syndrome I have recommended a right followed by left endoscopic carpal tunnel release. I discussed risks of surgery including but not limited to no resolution in symptoms or prolonged period of time before symptoms improved due to the severity of his carpal tunnel. Gone through additional risks and the informed consent process and discussed his increased risk of complications due to his heart disease. We we will have him see cardiology preoperatively. This will serve as the H & P. Import medication 05/06/2024 Other Patient is lux trevizo very well from a postoperative standpoint of his bilateral endoscopic carpal tunnel releases. He is satisfied with the improvement in his numbness. He will follow-up on an as-needed basis. Plan Of Treatment Pending Test Test Name Order Date EMG/NCS Upper Extremities, Bilateral CBC with diff, BMP, EKG 03/11/2024 Hemoglobin A1C 03/11/2024 Chem 8, Venous 03/11/2024 SURGERY SCHEDULING 03/11/2024 H A1C 01/29/2024 SCC- HAND 3 VIEW RIGHT [id number] 01/29/2024 Insurance Providers Payer Name Payer Address Payer Phone Subscriber Number Group Number Insured Name Patient Relationship to Insured Coverage Start Date Coverage End Date [place] [address] [place] [address] [id number] PABLO ONEIL Self - patient is the insured Medicare [facility] Advantage [address] [place] [address] [id number] PABLO ONEIL Self - patient is the insured Medical (General) History Medical History History 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
--- OUTSIDE RECORDS SUMMARY | 2025-02-17 08:21 | XMS_ITS | Clinical Summary ---
Author Organization [facility] Healthcare Address [address] [place] [address] Care Team Providers Care Single Needle Operator Name Role Phone Jamar Jones DO Primary Care Provider [phone] Allergies Active Allergy Reactions Criticality Noted Date [...] Description 02/25/2025 10:05 AM EDT Office Visit [facility] [address] [place] [id number] Deisy Boo APRN-CAN CRIMPER [address] [place] [address] Health Maintenance Due Date Last Done Comments Influenza Vaccine (#1) 2025 , 05/01/2023, 04/28/2022, Additional history exists Pneumococcal Vaccine: 65+ Years Completed 06/12/2017, 06/01/2017, 05/11/2015, Additional history exists Insurance [employer] Care Teams Single Needle Operator Relationship Specialty Start Date End Date Jamar Jones DO PCP - General Internal Medicine 05/31/23
--- OUTSIDE RECORDS SUMMARY | 2025-02-17 08:21 | XMS_ITS | Encounter Summary ---
Author Organization [facility] Address [address] [place], [place] [id number] Care Team Providers Care Earth Burner Name Role Phone Jamar Jones DO Primary Care Provider [phone] Galina Wall DENTIST ATTENDANT.HOSPICE ART THERAPIST Unavailable [phone] Clementine Aguilar RN Unavailable [phone] Saul Galdamez MD Unavailable [phone] Source Comments In the event this information is protected by the Federal Confidentiality of Alcohol and Drug AbusePatient Records regulations: The Federal rules restrict any use of the information to criminally investigate or prosecute any alcohol or drug abuse patient.[facility] Encounter Details Date Type Department Care Team (Latest Contact Info) Description 02/10/2025 Travel Social History Tobacco Use Types Packs/Day Years [...] is lower risk 7 02/02/2023 Data from: https://www.neighborhoodatlas.[facility]/. Last address used for calculation [address] [...] Department Care Team (Latest Contact Info) Description 02/20/2025 10:20 AM EDT Visit (SP) Office Hematology/Oncology [address] [place] [address] [place] [address] Saul Galdamez MD [facility] [place] [address] [address] [place] [facility] lab a week prior 02/20/2025 10:45 AM EDT Infusion Center Hematology/Oncology [address] [address] 3 month follow up with indu aguilar documented as of this encounter Visit Diagnoses Not on filedocumented in this encounter Care Teams Earth Burner Relationship Specialty Start Date End Date Jamar Jones DO PCP - General Internal Medicine 08/04/14 Galina Wall, ROCHELLE.HOSPICE ART THERAPIST [address] [place] [address] [place] [address] Nurse Practitioner Hematology/Oncology 11/02/21 Clementine Aguilar, ANITHA [address] [place] [address] [place] [address] Specialty Bridge Attacher Hematology/Oncology 11/02/21 Saul Galdamez MD [address] [place] [address] [place] [address] Physician Hematology/Oncology 01/21/25 documented as of this encounter
--- OUTSIDE RECORDS SUMMARY | 2025-02-17 08:21 | XMS_ITS | Encounter Summary ---
Author Organization [facility] Address [address] [place], [place] [id number] Care Team Providers Care Business Process Manager Name Role Phone Jamar Jones DO Primary Care Provider [phone] Marco A Esqueda MD Unavailable Unavail able Galina Wall APRN.MINE GEOLOGIST Unavailable [phone] Clementine Aguilar RN Unavailable [phone] Saul Galdamez MD Unavailable [phone] Source Comments In the event this information is protected by the Federal Confidentiality of Alcohol and Drug AbusePatient Records regulations: The Federal rules restrict any use of the information to criminally investigate or prosecute any alcohol or drug abuse patient.[facility] Encounter Details Date Type Department Care Team (Latest Contact Info) Description 04/27/2023 H&P External-NonCCF Provider, External, RAUL Do not enter address information under generic [...] is lower risk 7 02/02/2023 Data from: https://www.neighborhoodatlas.medicine.[facility]/. Last address used for calculation [...] 10:20 AM EDT Visit (SP) Office Hematology/Oncology [address] [place] [address] [place] [address] Saul Galdamez MD [address] [facility] [place] [address] 3 [address] [place] [facility] lab a week prior 02/20/2025 10:45 AM EDT Infusion Center Hematology/Oncology [address] [place] [address] 3 month follow up with xgeva inj documented as of this encounter Visit Diagnoses Not on filedocumented in this encounter Care Teams Business Process Manager Relationship Specialty Start Date End Date Jamar Jones DO PCP - General Internal Medicine 08/04/14 Marco A Esqueda MD Physician Hematology/Oncology 11/02/21 01/20/25 Galina Wall APRN.MINE GEOLOGIST [address] [place] [address] Nurse Practitioner Hematology/Oncology 11/02/21 Clementine Aguilar, ANIHTA [address] [place] [address] Specialty Corporate Sales Trainer Hematology/Oncology 11/02/21 Saul Galdamez MD [address] [place] [address] Physician Hematology/Oncology 01/21/25 documented as of this encounter
--- OUTSIDE RECORDS SUMMARY | 2025-02-17 08:22 | XMS_ITS ---
Author Organization [facility] Address [address] [place], [place] [id number] Care Team Providers Care Director Selection And Administration Name Role Phone Jamar Jones Primary Care Provider [phone] Galina Wall SYSTEM PROGRAMMER.BOARD WORKER Unavailable [phone] Clementine Aguilar RN Unavailable [phone] Saul Galdamez MD Unavailable [phone] Active Problems Problem Noted Date Diagnosed Date Malignant neoplasm of prostate 08/06/2014 Current Treatment and Therapy Plans No current plan information found. Past Treatment and Therapy Plans NON-CHEMO 1 Plan Name Start Date Discontinue Date Treatment Medications Discontinue Reason Plan Provider Cycles AMB BONE MODIFYING AGENT: $$$$ - Q4 WEEKS - IF CrCl IS LESS THAN 30 ML/MIN 11/18/2021 02/14/2025 denosumab (XGEVA) Other Marco A Esqueda MD 13 of 13 cycles started
--- OUTSIDE RECORDS SUMMARY | 2025-02-17 08:22 | XMS_ITS | Encounter Summary ---
Author Organization [facility] Address [address] [place] [id number] Care Team Providers Care Paper Rewinder Name Role Phone Jamar Jones DO Primary Care Provider [phone] Marco A Esqueda MD Unavailable Unavail able Galina Wall APRN.FINE WIRE DRAWER Unavailable [phone] Clementine Aguilar RN Unavailable [phone] Saul Galdamez MD Unavailable [phone] Source Comments In the event this information is protected by the Federal Confidentiality of Alcohol and Drug AbusePatient Records regulations: The Federal rules restrict any use of the information to criminally investigate or prosecute any alcohol or drug abuse patient.[facility] Reason for Visit * Reason Comments Refill Request Encounter Details Date Type Department Care Team (Late st Contact Info) Description 04/01/2024 Refill Hematology/Oncology [address] [place] [address] [place] [address] Marco A Esqueda MD Refill Request Social History Tobacco Use Types [...] is lower risk 7 02/02/2023 Data from: https://www.neighborhoodatlas.medicine.[facility]/. Last address used for calculation [address] [...] 10:20 AM EDT Visit (SP) Office Hematology/Oncology [address] [place] [address] [place] [address] Saul Galdamez MD [address] [place] [address] [place] [address] 3 [address] [place] [facility] lab a week prior 02/20/2025 10:45 AM EDT [facility] Hematology/Oncology [address] [facility] [place] [address] 3 month follow up with xgeva inj documented as of this encounter Visit Diagnoses Not on filedocumented in this encounter Care Teams Paper Rewinder Relationship Specialty Start Date End Date Jamar Jones DO PCP - General Internal Medicine 08/04/14 Marco A Esqueda MD Physician Hematology/Oncology 11/02/21 01/20/25 Galina Wall, ABNORMAL PSYCHOLOGY TEACHER.FINE WIRE DRAWER [address] [place] [address] [place] [address] Nurse Practitioner Hematology/Oncology 11/02/21 Clementine Aguilar, ANITHA [address] [place] [address] [place] [address] Specialty Marketing Sales Consultant Hematology/Oncology 11/02/21 Saul Galdamez MD [address] [place] [address] [place] [address] Physician Hematology/Oncology 01/21/25 documented as of this encounter
--- OUTSIDE RECORDS SUMMARY | 2025-02-17 08:22 | XMS_ITS | Clinical Summary ---
Author Organization [facility] Address [address] [place], [place] [id number] Care Team Providers Care Cytotechnologist/Cytology Supervisor Name Role Phone Jamar Jones DO Primary Care Provider [phone] Galina Wall PERMIT AGENT.ARCHITECTURAL INSPECTOR Unavailable Clementine Aguilar RN Unavailable [phone] Saul Galdamez MD Unavailable [phone] Allergies Active Allergy Reactions Criticality Noted Date [...] Encounters Date Type Department Care Team Description 02/10/2025 Travel from Last 3 Months Immunizations Immunization [...] is lower risk 7 02/02/2023 Data from: https://www.neighborhoodatlas.[facility]/. Last address used for calculation [address] [...] 10:20 AM EDT Visit (SP) Office Hematology/Oncology [address] [place] [address] [place] [address] Saul Galdamez MD [address] [place] [address] [place] [address] [address] [place] [facility] lab a week prior 02/20/2025 10:45 AM EDT Infusion Center Hematology/Oncology [address] [place] [address] [place] [address] 3 month follow up with xgeva inj Health Maintenance Due Date Last Done Comments Anxiety Screening 02/14/1963 Depression Screening 02/14/1963 Medicare Annual Wellness Visit 01/14/2011 Advance Directive Discussion 07/17/2024 Influenza Vaccine (#1) 2025 , 05/01/2023, 05/01/2023, Additional history exists Diabetes Screening 02/14/2028 2025, 0 10/31/2024, 08/01/2024, Additional history exists DTaP,Tdap,Td Vaccine (6 - Td or Tdap) 04/25/2034 04/25/2024, 06/19/2013, 06/19/2013, Additional history exists Pneumococcal Vaccine: 50+ Completed 2016, 06/01/2017, 05/11/2015, Additional history exists Shingrix Vaccine Completed 08/20/2018, , 06/27/2012 RSV Vaccine Completed 04/26/2024 Procedures Procedure Name Priority Date/Time Associated Diagnosis Comments PSA/PROSTSPECAG DIAG Routine 2025 9:43 AM EDT Malignant neoplasm of prostate (HCC) COMPREHENSIVE METABOLIC PANEL Routine 2025 9:43 AM EDT Malignant neoplasm of prostate (HCC) CBC + DIFF Routine 2025 9:43 AM EDT Malignant neoplasm of prostate (HCC) from Last 3 Months Results * PROSTATE-SPECIFIC ANTIGEN DIAGNOSTIC (2025 9:43 AM EDT) PSA 0.26 <2.60 ng/mL 2025 8:23 PM EDT [facility] Comment:Total PSA test metho dology used is the Electrochemiluminescence Immunoassay by [employer]. Total PSA values by differing methodologies cannot be interchanged. Blood BLOOD SPECIMEN / Unknown Venipuncture / Unknown 2025 9:43 AM EDT 2025 9:43 AM EDT us Marco A Esqueda MD LABORATORY Final Re sult [facility] [address] [facility] [address] [place] [address], [place] * (ABNORMAL) COMPREHENSIVE METABOLIC PANEL (2025 9:43 AM EDT) Pathologist [facility] Protein, Total 6.4 6.3 - 8.0 g/dL 2025 10:12 AM EDT [facility] Albumin 4.2 3.9 - 4.9 g/dL 2025 10:12 AM EDT [facility] Calcium, Total 9.3 8.5 - 10.2 mg/dL 2025 10:12 AM EDT [facility] Bilirubin, Total 0.6 0.2 - 1.3 mg/dL 2025 10:12 AM EDT [facility] Alkaline Phosphatase 73 38 - 113 U/L 2025 10:12 AM EDT [facility] AST 17 14 - 40 U/L 2025 10:12 AM EDT [facility] ALT 16 10 - 54 U/L 2025 10:12 AM EDT [facility] Glucose 122(H) 74 - 99 mg/dL 2025 10:12 AM EDT [facility] Comment: The [place] Diabetes Association (ADA) provides guidance for cutoff [...] Standards of Medical Care in Diabetes 2016, [place] Diabetes Association. Diabetes Care. 2016.39(Suppl 1). BUN 14 9 - 24 mg/dL 2025 10:12 AM EDT [facility] Creatinine 0.68(L) 0.73 - 1.22 mg/dL 2025 10:12 AM EDT [facility] Sodium 136 136 - 144 mmol/L 2025 10:12 AM EDT [facility] Potassium 4.5 3.7 - 5.1 mmol/L 2025 10:12 AM EDT [facility] Chloride 101 98 - 107 mmol/L 2025 10:12 AM EDT [facility] CO2 25 22 - 30 mmol/L 2025 10:12 AM EDT [facility] Anion Gap 10 8 - 15 mmol/L 2025 10:12 AM EDT [facility] Estimated Glomerular Filtration Rate 95 >=60 mL/min/1. 73m 2025 10:12 AM EDT [facility] Comment:Estimated Glomerular Filtration Rate (eGFR) [...] BLOOD SPECIMEN / Unknown Venipuncture / Unknown 2025 9:43 AM EDT 2025 9:43 AM EDT us Marco A Esqueda MD LABORATORY Final Re sult [facility] [address] [place] [address] * (ABNORMAL) COMPLETE BLOOD COUNT AND DIFFERENTIAL (2025 9:43 AM EDT) WBC 7.09 3.70 - 11.00 k/uL 2025 9:55 AM EDT [facility] RBC 3.69(L) 4.20 - 6.00 m/uL 2025 9:55 AM EDT [facility] Hemoglobin 12.0(L) 13.0 - 17.0 g/dL 2025 9:55 AM EDT [facility] Hematocrit 35.3(L) 39.0 - 51.0 % 2025 9:55 AM EDT [facility] MCV 95.7 80.0 - 100.0 fL 2025 9:55 AM EDT [facility] MCH 32.5 26.0 - 34.0 pg 2025 9:55 AM EDT [facility] MCHC 34.0 30.5 - 36.0 g/dL 2025 9:55 AM EDT [facility] RDW-CV 12.7 11.5 - 15.0 % 2025 9:55 AM EDT [facility] Platelet Count 204 150 - 400 k/uL 2025 9:55 AM EDT [facility] MPV 10.1 9.0 - 12.7 fL 2025 9:55 AM EDT [facility] Neutrophils % 52.2 % 2025 9:55 AM EDT [facility] Abs Neut 3.70 1.45 - 7.50 k/uL 2025 9:55 AM EDT [facility] Lymphocytes % 29.5 % 2025 9:55 AM EDT [facility] Abs Lymph 2.09 1.00 - 4.00 k/uL 2025 9:55 AM EDT [facility] Monocytes % 9.6 % 2025 9:55 AM EDT [facility] Abs Mathews 0.68 <0.87 k/uL 2025 9:55 AM EDT [facility] Eosinophils % 7.5 % 2025 9:55 AM EDT [facility] Abs Eosin 0.53(H) <0.46 k/uL 2025 9:55 AM EDT [facility] Basophils % 0.4 % 2025 9:55 AM EDT [facility] Abs Baso 0.03 <0.11 k/uL 2025 9:55 AM EDT [facility] Immature Granulocytes % 0.8 % 2025 9:55 AM EDT [facility] Abs Immature Gran 0.06 <0.10 k/uL 2025 9:55 AM EDT [facility] NRBC 0.0 /100 WBC 2025 9:55 AM EDT [facility] Absolute nRBC <0.01 <0.01 k/uL 2025 9:55 AM EDT [facility] Diff Type Auto 2025 9:55 AM EDT [facility] Blood BLOOD SPECIMEN / Unknown Venipuncture / Unknown 2025 9:43 AM EDT 2025 9:43 AM EDT Marco A Esqueda MD LABORATORY Final Re sult [facility] [address] [place] [address] from Last 3 Months Insurance MEDICARE [facility] [place] Care Teams Cytotechnologist/Cytology Supervisor Relationship Specialty Start Date End Date Jamar Jones DO PCP - General Internal Medicine 08/04/14 Galina Wall APRN.ARCHITECTURAL INSPECTOR [address] [place] [address] [place] [address] Nurse Practitioner Hematology/Oncology 11/02/21 Clementine Aguilar, ANITHA [address] [place] [address] [place] [address] Specialty Pastry Artist Hematology/Oncology 11/02/21 Saul Galdamez MD [facility] [address] [place] [address] Physician Hematology/Oncology 01/21/25
--- OUTSIDE RECORDS SUMMARY | 2025-02-17 08:22 | XMS_ITS | Clinical Summary ---
Author Organization [facility] Address [address] [address] Care Team Providers Care Bonding Supervisor Name Role Phone Jamar Jones DO Primary Care Provider [phone] Allergies Active Allergy Reactions Criticality Noted Date [...] Risk 6.0 % 30-day risk of , [place], or cardiac arrest From a cardiac perspective [...] to complete this topic Insurance [place] [address] Care Teams Bonding Supervisor Relationship Specialty Start Date End Date Jamar Jones DO [address] [place] [address] PCP - General 04/27/22
[2025-02-17 08:28] VITALS: BP 134/65; PULSE 72; TEMP 36.3; O2SAT 99
--- OUTSIDE RECORDS SUMMARY | 2025-02-17 08:35 | XMS_ITS | CCD ---
Author Organization [facility] Care Team Providers Care Dipper And Drier Name Role Phone Jamar Fall DO Primary Care Provider Dheeraj JAMES, Marco A R Unavailable [facility] EXECUTIVE SECRETARY.ALEXA, Christo Unavailable Lauren RN, Clementine Unavailable JAMAR FALL Primary Care Physician Jamar Fall DO Primary Care Provider Marco A Esqueda MD R Unavailable [phone] [facility] EXECUTIVE SECRETARY.ALEXA, Christo Unavailable [phone] Lauren WELSH, Clementine Unavailable Jamar Fall DO Primary Care Provider Dheeraj JAMES, Marco A R Unavailable [facility] EXECUTIVE SECRETARY.NAVAL SURFACE FIRE SUPPORT PLANNER, Christo Unavailable [phone] Lauren RN, Clementine Unavailable Jamar Fall Unavailable JUAN DAVID, DR ALCARAZ Admitting Unavailable JUAN DAVID, DR ALCARAZ Attending Unavailable JUAN DAVID, DR ALCARAZ Primary Care Unavailable JUAN DAVID, DR ALCARAZ Consulting Unavailable Cynthia Torres Consulting Unavailable SCRUGGS ., DR CRUZ Admitting Unavailable SCRUGGS ., DR CRUZ Attending Unavailable JUAN DAVID, DR ALCAARZ Primary Care Unavailable SCRUGGS ., DR CRUZ Consulting Unavailable DHEERAJ, DR SHARIF Admitting Unavailable DHEERAJ, DR SHARIF Attending Unavailable JUAN DAVID, DR ALCARAZ Primary Care Unavailable DHEERAJ, DR SHARIF Consulting Unavailable FEDE DE JESUS Consulting Unavailable UMANALUIZ Krueger Consulting Unavailable TAMEKA, LORA Admitting Unavailable TAMEAK, LORA Attending Unavailable JUAN DAVID, DR ALCARAZ [...] Attending Unavailable MARCO A ESQUEDA Referring Unavailable TIMMIS, EMELINA Craig Attending Unavailable BALL, JAMAR E Referring Unavailable CHRISTINAPABLO SQUIRES Attending Unavailable LONG BOO Attending Unavailable ALEXIA FRANCO Attending Unavailable ELTARODNEY, BRIDGER Attending Unavailable LORA ENGLISH Attending Unavailable SCRUGGSAnthony Attending Unavailable SCRUGGS, Anthony Lee Attending Unavailable SCRUGGS, Anthony Lee Attending Unavailable SCRUGGS, Anthony Lee Attending Unavailable Sharon JAMES, Nicole Lang Attending Unavailable Sharon JAMES, Nicole Lang Attending Unavailable MARCO A ESQUEDA Referring Unavailabl e BALL, JAMAR E Primary Care Unavailable CHRISTO HOWARD Attending Unavailable MARCO A ESQUEDA Referring Unavailabl e BALL, JAMAR E Primary Care Unavailable BALL, JAMAR E Primary Care Unavailable MARCO A ESQUEDA Referring Unavailabl e BALL, JAMAR E Primary Care Unavailable BALL, JAMAR E Primary Care Unavailable MARCO A ESQUEDA Attending Unavailabl e MARCO A ESQUEDA Referring Unavailabl e BALL, JAMAR E Primary Care Unavailable BALL, JAMAR E Primary Care Unavailable RENO TRACEY Referring Unavailable BALL, JAMAR E Primary Care Unavailable MARCO A ESQUEDA Referring Unavailabl e BALL, JAMAR E Primary Care Unavailable MARCO A ESQUEDA Referring Unavailabl e MARCO A ESQUEDA Attending Unavailabl e BALL, JAMAR E Primary Care Unavailable Allergies Allergy Classification Reported Allergen(s) Allergy Type Date of Onset Reaction(s) Facility (18 sources) Penicillins; Translations: [PENICILLINS] Drug Allergy 1 Unknown [facility] (20 sources) Penicillin G; Translations: [penicillin G benzathine] Drug Allergy 1 Unknown (qualifier value) [facility] (20 sources) Penicillins Drug Allergy 5 Unknown [facility] (20 sources) Simvastatin; Translations: [SIMVASTATIN] Drug Allergy 2 Unknown [facility] (1 source) Penicillins Drug allergy (disorder) 5 [facility] (1 source) Penicillin Drug Allergy Unknown [facility] Other (1 source) Allergies Reconciled Propensity to adverse reactions Unknown ncyclo Other (1 source) patient allergy list reviewed by nurse or physicia Propensity to adverse reactions 9 Comment:Done ncyclo Other (3 sources) Simvastatin Propensity to adverse reactions 2 [facility] (1 source) Penicillins Drug Allergy 5 Unknown [facility] Medications Current Medications Medication Drug [...] on above: Take 2 tablets by mo [facility] once daily. Contour Next - (20 sources) [...] sources) Anticholinergic Start: 10-20-2023 ipratropium Nasal 0.06% [place] Refill(s) 0 Start Date: 10/20/23 Status: Ordered [...] Start: 08-17-2021 take 2 tablets by mo [facility] once daily at mealtime metFORMIN (GLUCOPHAGE) 500 [...] by mouth twice daily. Take by mouth. Cglnvgiyziycv-Vdjzkdby-Fycsj n (MULTIVITAMIN 50 PLUS) tab (20 sources) [...] above: Take 1 tablet by [facility] twice daily. clopidogrel 75 mg oral tablet [...] Coronary arteriosclerosis; Translations: [Atherosclerotic heart disease of [place] coronary artery without angina pectoris] Onset: 10-10-2014 [...] CBC W Auto Differential pane l (Bld)on 2025 Basophils (Bld) [#/Vol] 0.03 10*3/uL Normal <0.11 [facility] Comment on above: Order Comment: Speci men Type: BLOOD SPECIMEN Ordering Facility: [facility] Address: [address] [place] [address] Performed By: #### 2 857-1 #### [facility] CLIA [id number] [address] [place] [address] [place] Basophils/100 WBC (Bld) 0.4 % Normal [facility] Comment on above: Order Comment: Speci men Type: BLOOD SPECIMEN Ordering Facility: [facility] Address: [address] [place] [address] Performed By: #### 2 857-1 #### [facility] CLIA [id number] [address] [place] [address] [place] Differential cell count method Nom (Bld) Auto Normal [facility] Comment on above: Order Comment: Speci men Type: BLOOD SPECIMEN Ordering Facility: [facility] Address: [address] [place] [address] Performed By: #### 2 857-1 #### [facility] CLIA [id number] [address] [place] [address] [place] Eosinophils (Bld) [#/Vol] 0.53 10*3/uL High <0.46 [facility] Comment on above: Order Comment: Speci men Type: BLOOD SPECIMEN Ordering Facility: [facility] Address: [address] [place] [address] Performed By: #### 2 857-1 #### [facility] CLIA [id number] [address] [place] [address] [place] Eosinophils/100 WBC (Bld) 7.5 % Normal [facility] Comment on above: Order Comment: Speci men Type: BLOOD SPECIMEN Ordering Facility: [facility] Address: [address] [place] [address] Performed By: #### 2 857-1 #### [facility] CLIA [id number] [address] [place] [address] [place] Erythrocyte distribution width (RBC) [Ratio] 12.7 % Normal 11.5-15.0 [facility] Comment on above: Order Comment: Speci men Type: BLOOD SPECIMEN Ordering Facility: [facility] Address: [address] [place] [address] Performed By: #### 2 857-1 #### [facility] CLIA [id number] [address] [place] [address] [place] Hematocrit (Bld) [Volume fraction] 35.3 % Low 39.0-51.0 [facility] Comment on above: Order Comment: Speci men Type: BLOOD SPECIMEN Ordering Facility: [facility] Address: [address] [place] [address] Performed By: #### 2 857-1 #### [facility] CLIA [id number] [address] [place] [address] [place] Hemoglobin (Bld) [Mass/Vol] 12.0 g/dL Low 13.0-17.0 [facility] Comment on above: Order Comment: Speci men Type: BLOOD SPECIMEN Ordering Facility: [facility] Address: [address] [place] [address] Performed By: #### 2 857-1 #### [facility] CLIA [id number] [address] [place] [address] [place] Immature granulocytes (Bld) [#/Vol] 0.06 10*3/uL Normal <0.10 [facility] Comment on above: Order Comment: Speci men Type: BLOOD SPECIMEN Ordering Facility: [facility] Address: [address] [place] [address] Performed By: #### 2 857-1 #### [facility] CLIA [id number] [address] [place] [address] [place] Immature granulocytes/100 WBC (Bld) 0.8 % Normal [facility] Comment on above: Order Comment: Speci men Type: BLOOD SPECIMEN Ordering Facility: [facility] Address: [address] [place] [address] Performed By: #### 2 857-1 #### [facility] CLIA [id number] [address] [place] [address] [place] Lymphocytes (Bld) [#/Vol] 2.09 10*3/uL Normal 1.00-4.00 [facility] Comment on above: Order Comment: Speci men Type: BLOOD SPECIMEN Ordering Facility: [facility] Address: [address] [place] [address] Performed By: #### 2 857-1 #### [facility] CLIA [id number] [address] [place] [address] [place] Lymphocytes/100 WBC (Bld) 29.5 % Normal [facility] Comment on above: Order Comment: Speci men Type: BLOOD SPECIMEN Ordering Facility: [facility] Address: [address] [place] [address] Performed By: #### 2 857-1 #### [facility] CLIA [id number] [address] [place] [address] [place] MCH (RBC) [Entitic mass] 32.5 pg Normal 26.0-34.0 [facility] Comment on above: Order Comment: Speci men Type: BLOOD SPECIMEN Ordering Facility: [facility] Address: [address] [place] [address] Performed By: #### 2 857-1 #### [facility] CLIA [id number] [address] [place] [address] [place] MCHC (RBC) [Mass/Vol] 34.0 g/dL Normal 30.5-36.0 [facility] Comment on above: Order Comment: Speci men Type: BLOOD SPECIMEN Ordering Facility: [facility] Address: [address] [place] [address] Performed By: #### 2 857-1 #### [facility] CLIA [id number] [address] [place] [address] [place] MCV (RBC) [Entitic vol] 95.7 fL Normal 80.0-100.0 [facility] Comment on above: Order Comment: Speci men Type: BLOOD SPECIMEN Ordering Facility: [facility] Address: [address] [place] [address] Performed By: #### 2 857-1 #### [facility] CLIA [id number] [address] [place] [address] [place] Monocytes (Bld) [#/Vol] 0.68 10*3/uL Normal <0.87 [facility] Comment on above: Order Comment: Speci men Type: BLOOD SPECIMEN Ordering Facility: [facility] Address: [address] [place] [address] Performed By: #### 2 857-1 #### [facility] CLIA [id number] [address] [place] [address] [place] Monocytes/100 WBC (Bld) 9.6 % Normal [facility] Comment on above: Order Comment: Speci men Type: BLOOD SPECIMEN Ordering Facility: [facility] Address: [address] [place] [address] Performed By: #### 2 857-1 #### [facility] CLIA [id number] [address] [place] [address] [place] Neutrophils (Bld) [#/Vol] 3.70 10*3/uL Normal 1.45-7.50 [facility] Comment on above: Order Comment: Speci men Type: BLOOD SPECIMEN Ordering Facility: [facility] Address: [address] [place] [address] Performed By: #### 2 857-1 #### [facility] CLIA [id number] [address] [place] [address] [place] Neutrophils/100 WBC (Bld) 52.2 % Normal [facility] Comment on above: Order Comment: Speci men Type: BLOOD SPECIMEN Ordering Facility: [facility] Address: [address] [place] [address] Performed By: #### 2 857-1 #### [facility] CLIA [id number] [address] [place] [address] [place] Nucleated RBC (Bld) [#/Vol] 10*3/uL Normal <0.01 [facility] Comment on above: Order Comment: Speci men Type: BLOOD SPECIMEN Ordering Facility: [facility] Address: [address] [place] [address] Performed By: #### 2 857-1 #### [facility] CLIA [id number] [address] [place] [address] [place] Nucleated RBC/100 WBC (Bld) [Ratio] 0.0 /100 WBC Normal [facility] Comment on above: Order Comment: Speci men Type: BLOOD SPECIMEN Ordering Facility: [facility] Address: [address] [place] [address] Performed By: #### 2 857-1 #### [facility] CLIA [id number] [address] [place] [address] [place] Platelet mean volume (Bld) [Entitic vol] 10.1 fL Normal 9.0-12.7 [facility] Comment on above: Order Comment: Speci men Type: BLOOD SPECIMEN Ordering Facility: [facility] Address: [address] [place] [address] Performed By: #### 2 857-1 #### [facility] CLIA [id number] [address] [place] [address] [place] Platelets (Bld) [#/Vol] 204 10*3/uL Normal 150-400 [facility] Comment on above: Order Comment: Speci men Type: BLOOD SPECIMEN Ordering Facility: [facility] Address: [address] [place] [address] Performed By: #### 2 857-1 #### [facility] CLIA [id number] [address] [place] [address] [place] RBC (Bld) [#/Vol] 3.69 10*6/uL Low 4.20-6.00 [facility] Comment on above: Order Comment: Speci men Type: BLOOD SPECIMEN Ordering Facility: [facility] Address: [address] [place] [address] Performed By: #### 2 857-1 #### [facility] CLIA [id number] [address] [place] [address] [place] WBC (Bld) [#/Vol] 7.09 10*3/uL Normal 3.70-11.00 [facility] Comment on above: Order Comment: Speci men Type: BLOOD SPECIMEN Ordering Facility: [facility] Address: [address] [place] [address] Performed By: #### 2 857-1 #### [facility] CLIA [id number] [address] [place] [address] [place] Comprehensive metabolic 2000 panelon 2025 Albumin [Mass/Vol] 4.2 g/dL Normal 3.9-4.9 [facility] Comment on above: Order Comment: Speci men Type: BLOOD SPECIMEN Ordering Facility: [facility] Address: [address] [place] [address] Performed By: #### 2 857-1 #### [facility] CLIA [id number] [address] [place] [address] [place] ALP [Catalytic activity/Vol] 73 U/L Normal 38-113 [facility] Comment on above: Order Comment: Speci men Type: BLOOD SPECIMEN Ordering Facility: [facility] Address: [address] [place] [address] Performed By: #### 2 857-1 #### [facility] CLIA [id number] [address] [place] [address] [place] ALT [Catalytic activity/Vol] 16 U/L Normal 10-54 [facility] Comment on above: Order Comment: Speci men Type: BLOOD SPECIMEN Ordering Facility: [facility] Address: [address] [place] [address] Performed By: #### 2 857-1 #### [facility] CLIA [id number] [address] [place] [address] [place] Anion gap [Moles/Vol] 10 mmol/L Normal 8-15 [facility] Comment on above: Order Comment: Speci men Type: BLOOD SPECIMEN Ordering Facility: [facility] Address: [address] [place] [address] Performed By: #### 2 857-1 #### [facility] CLIA [id number] [address] [place] [address] [place] AST [Catalytic activity/Vol] 17 U/L Normal 14-40 [facility] Comment on above: Order Comment: Speci men Type: BLOOD SPECIMEN Ordering Facility: [facility] Address: [address] [place] [address] Performed By: #### 2 857-1 #### [facility] CLIA [id number] [address] [place] [address] [place] Bilirubin [Mass/Vol] 0.6 mg/dL Normal 0.2-1.3 [facility] Comment on above: Order Comment: Speci men Type: BLOOD SPECIMEN Ordering Facility: [facility] Address: [address] [place] [address] Performed By: #### 2 857-1 #### [facility] CLIA [id number] [address] [place] [address] [place] Calcium [Mass/Vol] 9.3 mg/dL Normal 8.5-10.2 [facility] Comment on above: Order Comment: Speci men Type: BLOOD SPECIMEN Ordering Facility: [facility] Address: [address] [place] [address] Performed By: #### 2 857-1 #### [facility] CLIA [id number] [address] [place] [address] [place] Chloride [Moles/Vol] 101 mmol/L Normal 98-107 [facility] Comment on above: Order Comment: Speci men Type: BLOOD SPECIMEN Ordering Facility: [facility] Address: [address] [place] [address] Performed By: #### 2 857-1 #### [facility] CLIA [id number] [address] [place] [address] [place] CO2 [Moles/Vol] 25 mmol/L Normal 22-30 [facility] Comment on above: Order Comment: Speci men Type: BLOOD SPECIMEN Ordering Facility: [facility] Address: [address] [place] [address] Performed By: #### 2 857-1 #### [facility] CLIA [id number] [address] [place] [address] [place] Creatinine [Mass/Vol] 0.68 mg/dL Low 0.73-1.22 [facility] Comment on above: Order Comment: Speci men Type: BLOOD SPECIMEN Ordering Facility: [facility] Address: [address] [place] [address] Performed By: #### 2 857-1 #### [facility] CLIA [id number] [address] [place] [address] [place] eGFRcr SerPlBld CKD-EPI 2020 95 mL/min/1.73m??? Normal >=60 [facility] Comment on above: Order Comment: Speci men Type: BLOOD SPECIMEN Ordering Facility: [facility] Address: [address] [place] [address] Result Comment: Renae mated Glomerular Filtration Rate [...] GFR. Performed By: #### 2 857-1 #### [facility] CLIA [id number] [address] [place] [address] [place] Glucose [Mass/Vol] 122 mg/dL High 74-99 [facility] Comment on above: Order Comment: Specgarett men Type: BLOOD SPECIMEN Ordering Facility: [facility] Address: [address] [place] [address] Result Comment: The [place] Diabetes Association (ADA) provides guidance for cutoff [...] Standards of Medical Care in Diabetes 2016, [place] [employer]. Diabetes Care. 2016.39(Suppl 1). Performed By: #### 2 857-1 #### [facility] CLIA [id number] [address] [place] [address] [place] Potassium [Moles/Vol] 4.5 mmol/L Normal 3.7-5.1 [facility] Comment on above: Order Comment: Nicanor camilo Type: BLOOD SPECIMEN Ordering Facility: [facility] Address: [address] [place] [address] Performed By: #### 2 857-1 #### [facility] CLIA [id number] [address] [place] [address] [place] Protein [Mass/Vol] 6.4 g/dL Normal 6.3-8.0 [facility] Comment on above: Order Comment: Nicanor camilo Type: BLOOD SPECIMEN Ordering Facility: [facility] Address: [address] [place] [address] Performed By: #### 2 857-1 #### [facility] CLIA [id number] [address] [place] [address] [place] Sodium [Moles/Vol] 136 mmol/L Normal 136-144 [facility] Comment on above: Order Comment: Speci men Type: BLOOD SPECIMEN Ordering Facility: [facility] Address: [address] [place] [address] Performed By: #### 2 857-1 #### [facility] CLIA [id number] [address] [place] [address] [place] Urea nitrogen [Mass/Vol] 14 mg/dL Normal 9-24 [facility] Comment on above: Order Comment: Speci men Type: BLOOD SPECIMEN Ordering Facility: [facility] Address: [address] [place] [address] Performed By: #### 2 857-1 #### [facility] CLIA [id number] [address] [place] [address] [place] PSA SerPl-mCncon 2025 Prostate specific Ag [Mass/Vol] 0.26 ng/mL Normal <2.60 [facility] Comment on above: Order Comment: Speci men Type: BLOOD SPECIMEN Ordering Facility: [facility] Address: [address] [place] [address] Result Comment: Tota l PSA test methodology used is the Electrochemiluminescence Immunoassay by [employer]. Total PSA values by differing methodologies cannot be interchanged. Performed By: #### 2 857-1 #### [facility] CLIA [id number] [address] [place] [address] [place] CNOVSPon 11-07-2024 CNOVSP Visit (SP) Office (H EMA) PABLO FELIX ([id number]) 1945 M Date Time Provider Department 11/07/24 [...] PHYSICIANS: Dr. Anthony Scruggs, Dr. Khan, [facility] Cardiology Portions of this [...] mg 24 hr tablet Take by mouth. 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 Left base margin positive for neoplasm. Seminal vesicles with no diagnostic abnormality. 2 resected lymph nodes negative for neoplasm. LABS: Hemoglobin (g/dL) Date Value 10/31/2024 12.4 05/08/2018 12.8 Hem (more content not included)... Normal [facility] CBC W Auto Differential pane l (Bld)on 10-31-2024 Basophils (Bld) [#/Vol] 0.05 10*3/uL Normal <0.11 [facility] Comment on above: Order Comment: Speci men Type: BLOOD SPECIMEN Ordering Facility: [facility] Address: [address] [place] [address] Performed By: #### 5 7021-8 #### [facility] CLIA [id number] [address] [place] [address] Basophils/100 WBC (Bld) 0.7 % Normal [facility] Comment on above: Order Comment: Speci men Type: BLOOD SPECIMEN Ordering Facility: [facility] Address: [address] [place] [address] Performed By: #### 5 7021-8 #### [facility] CLIA [id number] [address] [place] [address] Differential cell count method Nom (Bld) Auto Normal [facility] Comment on above: Order Comment: Speci men Type: BLOOD SPECIMEN Ordering Facility: [facility] Address: [address] [place] [address] Performed By: #### 5 7021-8 #### [facility] CLIA [id number] [address] [place] [address] Eosinophils (Bld) [#/Vol] 0.51 10*3/uL High <0.46 [facility] Comment on above: Order Comment: Speci men Type: BLOOD SPECIMEN Ordering Facility: [facility] Address: [address] [place] [address] Performed By: #### 5 7021-8 #### [facility] CLIA [id number] [address] [place] [address] Eosinophils/100 WBC (Bld) 7.3 % Normal [facility] Comment on above: Order Comment: Speci men Type: BLOOD SPECIMEN Ordering Facility: [facility] Address: [address] [place], [place] [address] Performed By: #### 5 7021-8 #### [facility] CLIA [id number] [address] [place] [address] Erythrocyte distribution width (RBC) [Ratio] 12.9 % Normal 11.5-15.0 [facility] Comment on above: Order Comment: Speci men Type: BLOOD SPECIMEN Ordering Facility: [facility] Address: [address] [place] [address] Performed By: #### 5 7021-8 #### [facility] CLIA [id number] [address] [place] [address] Hematocrit (Bld) [Volume fraction] 36.0 % Low 39.0-51.0 [facility] Comment on above: Order Comment: Speci men Type: BLOOD SPECIMEN [facility] [facility] Address: [address] [place] [address] Performed By: #### 5 7021-8 #### [facility] CLIA [id number] [address] [place] [address] 87087 Hemoglobin (Bld) [Mass/Vol] 12.4 g/dL Low 13.0-17.0 [facility] Comment on above: Order Comment: Speci men Type: BLOOD SPECIMEN Ordering Facility: [facility] Address: [address] [place] [address] Performed By: #### 5 7021-8 #### [facility] CLIA [id number] [address] [place] [address] 64915 Immature granulocytes (Bld) [#/Vol] 0.04 10*3/uL Normal <0.10 [facility] Comment on above: Order Comment: Speci men Type: BLOOD SPECIMEN Ordering Facility: [facility] Address: [address] [place] [address] Performed By: #### 5 7021-8 #### [facility] CLIA [id number] [address] [place] [address] 79029 Immature granulocytes/100 WBC (Bld) 0.6 % Normal [facility] Comment on above: Order Comment: Speci men Type: BLOOD SPECIMEN Ordering Facility: [facility] Address: [address] [place] [address] Performed By: #### 5 7021-8 #### [facility] CLIA [id number] [address] [place] [address] 53965 Lymphocytes (Bld) [#/Vol] 1.80 10*3/uL Normal 1.00-4.00 [facility] Comment on above: Order Comment: Speci men Type: BLOOD SPECIMEN Ordering Facility: [facility] Address: [address] [place] [address] Performed By: #### 5 7021-8 #### [facility] CLIA [id number] [address] [place] [address] 35660 Lymphocytes/100 WBC (Bld) 25.8 % Normal [facility] Comment on above: Order Comment: Speci men Type: BLOOD SPECIMEN Ordering Facility: [facility] Address: [address] [place] [address] Performed By: #### 5 7021-8 #### [facility] CLIA [id number] [address] [place] [address] 21262 MCH (RBC) [Entitic mass] 32.2 pg Normal 26.0-34.0 [facility] Comment on above: Order Comment: Speci men Type: BLOOD SPECIMEN Ordering Facility: [facility] Address: [address] [place] [address] Performed By: #### 5 7021-8 #### [facility] CLIA [id number] [address] [place] [address] 77973 MCHC (RBC) [Mass/Vol] 34.4 g/dL Normal 30.5-36.0 [facility] Comment on above: Order Comment: Speci men Type: BLOOD SPECIMEN Ordering Facility: [facility] Address: [address] [place] [address] Performed By: #### 5 7021-8 #### [facility] CLIA [id number] [address] [place] [address] 85707 MCV (RBC) [Entitic vol] 93.5 fL Normal 80.0-100.0 [facility] Comment on above: Order Comment: Speci men Type: BLOOD SPECIMEN Ordering Facility: [facility] Address: [address] [place] [address] Performed By: #### 5 7021-8 #### [facility] CLIA [id number] [address] [place] [address] 15683 Monocytes (Bld) [#/Vol] 0.69 10*3/uL Normal <0.87 [facility] Comment on above: Order Comment: Speci men Type: BLOOD SPECIMEN Ordering Facility: [facility] Address: [address] [place] [address] Performed By: #### 5 7021-8 #### [facility] CLIA [id number] [address] [place] [address] 04753 Monocytes/100 WBC (Bld) 9.9 % Normal [facility] Comment on above: Order Comment: Speci men Type: BLOOD SPECIMEN Ordering Facility: [facility] Address: [address] [place] [address] Performed By: #### 5 7021-8 #### [facility] CLIA [id number] [address] [place] [address] 56272 Neutrophils (Bld) [#/Vol] 3.90 10*3/uL Normal 1.45-7.50 [facility] Comment on above: Order Comment: Speci men Type: BLOOD SPECIMEN Ordering Facility: [facility] Address: [address] [place] [address] Performed By: #### 5 7021-8 #### [facility] CLIA [id number] [address] [place] [address] 63553 Neutrophils/100 WBC (Bld) 55.7 % Normal [facility] Comment on above: Order Comment: Speci men Type: BLOOD SPECIMEN Ordering Facility: [facility] Address: [address] [place] [address] Performed By: #### 5 7021-8 #### [facility] CLIA [id number] [address] [place] [address] Nucleated RBC (Bld) [#/Vol] 10*3/uL Normal <0.01 [facility] Comment on above: Order Comment: Speci men Type: BLOOD SPECIMEN Ordering Facility: [facility] Address: [address] [place] [address] Performed By: #### 5 7021-8 #### [facility] CLIA [id number] [address] [place] [address] 76982 Nucleated RBC/100 WBC (Bld) [Ratio] 0.0 /100 WBC Normal [facility] Comment on above: Order Comment: Speci men Type: BLOOD SPECIMEN Ordering Facility: [facility] Address: [address] [place] [address] Performed By: #### 5 7021-8 #### [facility] CLIA [id number] [address] [place] [address] 57007 Platelet mean volume (Bld) [Entitic vol] 9.8 fL Normal 9.0-12.7 [facility] Comment on above: Order Comment: Speci men Type: BLOOD SPECIMEN Ordering Facility: [facility] Address: [address] [place] [address] Performed By: #### 5 7021-8 #### [facility] CLIA [id number] [address] [place] [address] 27717 Platelets (Bld) [#/Vol] 204 10*3/uL Normal 150-400 [facility] Comment on above: Order Comment: Speci men Type: BLOOD SPECIMEN Ordering Facility: [facility] Address: [address] [place] [address] Performed By: #### 5 7021-8 #### [facility] CLIA [id number] [address] [place] [address] RBC (Bld) [#/Vol] 3.85 10*6/uL Low 4.20-6.00 [facility] Comment on above: Order Comment: Speci men Type: BLOOD SPECIMEN Ordering Facility: [facility] Address: [address] [place] [address] Performed By: #### 5 7021-8 #### [facility] CLIA [id number] [address] [place] [address] 19789 WBC (Bld) [#/Vol] 6.99 10*3/uL Normal 3.70-11.00 [facility] Comment on above: Order Comment: Speci men Type: BLOOD SPECIMEN Ordering Facility: [facility] Address: [address] [place] [address] Performed By: #### 5 7021-8 #### [facility] CLIA [id number] [address] [place] [address] 66040 Comprehensive metabolic 2000 panelon 10-31-2024 Albumin [Mass/Vol] 4.1 g/dL Normal 3.9-4.9 [facility] Comment on above: Order Comment: Speci men Type: BLOOD SPECIMEN Ordering Facility: [facility] Address: [address] [place] [address] Performed By: #### 2 857-1 #### [facility] CLIA [id number] [address] [place] [address] [place] ALP [Catalytic activity/Vol] 84 U/L Normal 38-113 [facility] Comment on above: Order Comment: Speci men Type: BLOOD SPECIMEN Ordering Facility: [facility] Address: [address] [place] [address] Performed By: #### 2 857-1 #### [facility] CLIA [id number] [address] [place] [address] [place] ALT [Catalytic activity/Vol] 18 U/L Normal 10-54 [facility] Comment on above: Order Comment: Speci men Type: BLOOD SPECIMEN Ordering Facility: [facility] Address: [address] [place] [address] Performed By: #### 2 857-1 #### [facility] CLIA [id number] [address] [place], [place] [id number] [place] Anion gap [Moles/Vol] 12 mmol/L Normal 8-15 [facility] Comment on above: Order Comment: Speci men Type: BLOOD SPECIMEN Ordering Facility: [facility] Address: [address] [place] [address] Performed By: #### 2 857-1 #### [facility] CLIA [id number] [address] [place] [address] [place] AST [Catalytic activity/Vol] 18 U/L Normal 14-40 [facility] Comment on above: Order Comment: Speci men Type: BLOOD SPECIMEN Ordering Facility: [facility] Address: [address] [place] [address] Performed By: #### 2 857-1 #### [facility] CLIA [id number] [address] [place] [address] [place] Bilirubin [Mass/Vol] 0.5 mg/dL Normal 0.2-1.3 [facility] Comment on above: Order Comment: Speci men Type: BLOOD SPECIMEN Ordering Facility: [facility] Address: [address] [place] [address] Performed By: #### 2 857-1 #### [facility] CLIA [id number] [address] [place] [address] [place] Calcium [Mass/Vol] 10.1 mg/dL Normal 8.5-10.2 [facility] Comment on above: Order Comment: Speci men Type: BLOOD SPECIMEN Ordering Facility: [facility] Address: [address] [place] [address] Performed By: #### 2 857-1 #### [facility] CLIA [id number] [address] [place] [address] [place] Chloride [Moles/Vol] 101 mmol/L Normal 98-107 [facility] Comment on above: Order Comment: Speci men Type: BLOOD SPECIMEN Ordering Facility: [facility] Address: [address] [place] [address] Performed By: #### 2 857-1 #### [facility] CLIA [id number] [address] [place] [address] [place] CO2 [Moles/Vol] 24 mmol/L Normal 22-30 [facility] Comment on above: Order Comment: Speci men Type: BLOOD SPECIMEN Ordering Facility: [facility] Address: [address] [place] [address] Performed By: #### 2 857-1 #### [facility] CLIA [id number] [address] [place] [address] [place] Creatinine [Mass/Vol] 0.88 mg/dL Normal 0.73-1.22 [facility] Comment on above: Order Comment: Speci men Type: BLOOD SPECIMEN Ordering Facility: [facility] Address: [address] [place] [address] Performed By: #### 2 857-1 #### [facility] CLIA [id number] [address] [place] [address] [place] Creatinine and Glomerular filtration rate.predicted panel (S/P/Bld) 88 mL/min/1.73m??? Normal >=60 [facility] Comment on above: Order Comment: Speci men Type: BLOOD SPECIMEN Ordering Facility: [facility] Address: [address] [place] [address] Result Comment: Renae mated Glomerular Filtration Rate [...] GFR. Performed By: #### 2 857-1 #### [facility] IA [id number] [address] [place] [address] [place] Glucose [Mass/Vol] 123 mg/dL High 74-99 [facility] Comment on above: Order Comment: Speci men Type: BLOOD SPECIMEN Ordering Facility: [facility] Address: [address] [place] [address] Result Comment: The [place] [employer] (ADA) provides guidance for cutoff [...] Standards of Medical Care in Diabetes 2016, [place] [employer]. Diabetes Care. 2016.39(Suppl 1). Performed By: #### 2 857-1 #### [facility] CLIA [id number] [address] [place] [address] [place] Potassium [Moles/Vol] 4.6 mmol/L Normal 3.7-5.1 [facility] Comment on above: Order Comment: Speci men Type: BLOOD SPECIMEN Ordering Facility: [facility] Address: [address] [place] [address] Performed By: #### 2 857-1 #### [facility] IA [id number] [address] [place] [address] [place] Protein [Mass/Vol] 6.5 g/dL Normal 6.3-8.0 [facility] Comment on above: Order Comment: Speci men Type: BLOOD SPECIMEN Ordering Facility: [facility] Address: [address] [place] [address] Performed By: #### 2 857-1 #### [facility] CLIA [id number] [address] [place] [address] [place] Sodium [Moles/Vol] 137 mmol/L Normal 136-144 [facility] Comment on above: Order Comment: Speci men Type: BLOOD SPECIMEN Ordering Facility: [facility] Address: [address] [place] [address] Performed By: #### 2 857-1 #### [facility] CLIA [id number] [address] [place] [address] [place] Urea nitrogen [Mass/Vol] 16 mg/dL Normal 9-24 [facility] Comment on above: Order Comment: Speci men Type: BLOOD SPECIMEN Ordering Facility: [facility] Address: [address] [place] [address] Performed By: #### 2 857-1 #### [facility] CLIA [id number] [address] [place] [address] [place] PSA SerPl-mCncon 10-31-2024 Prostate specific Ag [Mass/Vol] 0.22 ng/mL Normal <2.60 [facility] Comment on above: Order Comment: Speci men Type: BLOOD SPECIMEN Ordering Facility: [facility] Address: [address] [place] [address] Result Comment: Tota l PSA test methodology used is the Electrochemiluminescence Immunoassay by [employer]. Total PSA values by differing methodologies cannot be interchanged. Performed By: #### 2 857-1 #### [facility] CLIA [id number] [address] [place] [address] [place] Ambulatory Visit Summaryon [...] mg Tab) ipratropium nasal (ipratropium Nasal 0.06% [place]) metformin (metformin 1000 mg oral tablet) metoprolol [...] Anthony SCRUGGS MD Where: [facility] [address] [place] [address]- You Need to Schedule the Following Appointments Follow Up with Anthony SCRUGGS MD, URL When: Comments: 6 mos w/ PSA and Lupron Where: [facility] [address], [place] [address]- [phone] Medications What How Much When Instructions Unchanged [...] concerns Unchanged ipratropium nasal (ipratropium Nasal 0.06% [place]) Contact prescribing physician if questions or concerns [...] prostate cancer (more content not included)... Normal [facility] Urology Office/Clinic Noteon 10-07-2024 Urology Office/Clinic [...] 0.27 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 [place] 9 (5+4), pT2b, N0, [place]. Last Lupron [...] Lee, URL [facility] [address], [facility] [address]- [phone] Additional Instructions: 6 mos w/ PSA and Lupron Patient Education Hormone Suppression Therapy for Prostate Cancer Jeanine Luther, personally scribed for Dr. Scruggs on 10/07/2024 09:59:19. . Documentation recorded by the scribJeanine lopez, accurately reflects the services(s) I performed and [...] 1 tab(s), Oral, Daily ipratropium Nasal 0.06% [place] metformin 1000 mg oral tablet, Oral, BID [...] virus vacc (more content not included)... Normal [facility] Comment on above: Result Comment: Elec tronically Signed By: Anthony SCRUGGS MD\.br\Date and Time Signed: 10/07/24 10:00 EDT\.br\Electronically Co-Signed By: Jeanine Crandall.br\Date and Time Co-Signed: 10/07/24 09:59 EDT CNOVSPon 08-08-2024 CNOVSP Visit (SP) Office ([facility]) PABLO FELIX ([id number]) 1945 M Date Time Provider Department 08/08/24 9:30 AM CHRISTO HOWARD During your visit today, we recorded the following information about you: Temperature Pulse Respiration Blood pressure 97.9 degrees 57/minute 16/minute 149/56 Weight Height 95 kg 1.676 m Christo Howard APRN.CNP 08/08/2024 12:09 PM Signed PATIENT NAME: Pablo Felix DATE: 08/08/2024 PRIMARY CARE PHYSICIAN: Dr. Jamar Fall OTHER PHYSICIANS: Dr. Anthony Scruggs, Dr. Khan, [facility] Cardiology Portions of this [...] mg 24 hr tablet Take by mouth. 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 Left base margin positive for neoplasm. Seminal vesicles with no diagnostic abnormality. 2 resected lymph nodes negative for neoplasm. LABS: Hemoglobin (g/dL) Date Value 08/01/2024 12.2 05/08/2018 12.8 Hematoc (more content not included)... Normal [facility] Basophils Auto (Bld) [#/Vol] on 08-01-2024 Basophils (Bld) [#/Vol] Automated basophil count <0.[address] [facility] Basophils/100 WBC Auto (Bld) on 08-01-2024 Basophils/100 WBC (Bld) Automated basophil % [facility] Blood manual differential co mment interpretation narrativeon 08-01-2024 Manual differential comment [place] (Bld) [Interp] Blood manual differential comment interpretation narrative [facility] CBC W Auto Differential pane l (Bld)on 08-01-2024 Basophils (Bld) [#/Vol] 0.03 10*3/uL [facility] Basophils/100 WBC (Bld) 0.5 % [facility] Differential cell count method Nom (Bld) Auto [facility] Eosinophils (Bld) [#/Vol] 0.5 10*3/uL High [facility] Eosinophils/100 WBC (Bld) 8.5 % [facility] Erythrocyte distribution width (RBC) [Ratio] 12.7 % 11.5 - 15.0 % [facility] Hematocrit (Bld) [Volume fraction] 35.7 % Low 39.0 - 51.0 % [facility] Hemoglobin (Bld) [Mass/Vol] 12.2 g/dL Low 13.0 - 17.0 g/dL [facility] Immature granulocytes (Bld) [#/Vol] 0.04 10*3/[facility]L [facility] Immature granulocytes/100 WBC (Bld) 0.7 % [facility] Interpretation and review of laboratory results Abnormal [facility] Lymphocytes (Bld) [#/Vol] 1.55 10*3/uL [facility] Lymphocytes/100 WBC (Bld) 26.5 % [facility] MCH (RBC) [Entitic mass] 32.4 pg 26.0 - 34.0 pg [facility] MCHC (RBC) [Mass/Vol] 34.2 g/dL 30.5 - 36.0 g/dL [facility] MCV (RBC) [Entitic vol] 94.9 fL 80.0 - 100.0 fL [facility] Monocytes (Bld) [#/Vol] 0.55 10*3/uL [facility] Monocytes/100 WBC (Bld) 9.4 % [facility] Neutrophils (Bld) [#/Vol] 3.19 10*3/uL [facility] Neutrophils/100 WBC (Bld) 54.4 % [facility] Nucleated RBC (Bld) [#/Vol] NINF [facility] Nucleated RBC/100 WBC (Bld) [Ratio] 0 % /100 WBC [facility] Platelet mean volume (Bld) [Entitic vol] 9.4 fL 9.0 - 12.7 fL [facility] Platelets (Bld) [#/Vol] 177 10*3/uL [facility] RBC (Bld) [#/Vol] 3.76 10*6/uL Low 4.20 - 6.0 0 m/uL [facility] WBC (Bld) [#/Vol] 5.86 10*3/uL [facility] Basophils (Bld) [#/Vol] 0.03 10*3/uL Normal <0.11 [facility] Comment on above: Order Comment: Speci men Type: BLOOD SPECIMEN Ordering Facility: [facility] Address: [address] [place] [address] Performed By: #### 2 857-1 #### [facility] CLIA [id number] [address] [place] [address] [place] Basophils/100 WBC (Bld) 0.5 % Normal [facility] Comment on above: Order Comment: Speci men Type: BLOOD SPECIMEN Ordering Facility: [facility] Address: [address] [place] [address] Performed By: #### 2 857-1 #### [facility] CLIA [id number] [address] [place] [address] [place] Differential cell count method Nom (Bld) Auto Normal [facility] Comment on above: Order Comment: Speci men Type: BLOOD SPECIMEN Ordering Facility: [facility] Address: [address] [place] [address] Performed By: #### 2 857-1 #### [facility] CLIA [id number] [address] [place] [address] [place] Eosinophils (Bld) [#/Vol] 0.50 10*3/uL High <0.46 [facility] Comment on above: Order Comment: Speci men Type: BLOOD SPECIMEN Ordering Facility: [facility] Address: [address] [place] [address] Performed By: #### 2 857-1 #### [facility] CLIA [id number] [address] [place] [address] [place] Eosinophils/100 WBC (Bld) 8.5 % Normal [facility] Comment on above: Order Comment: Speci men Type: BLOOD SPECIMEN Ordering Facility: [facility] Address: [address] [place] [address] Performed By: #### 2 857-1 #### [facility] CLIA [id number] [address] [place] [address] [place] Erythrocyte distribution width (RBC) [Ratio] 12.7 % Normal 11.5-15.0 [facility] Comment on above: Order Comment: Speci men Type: BLOOD SPECIMEN Ordering Facility: [facility] Address: [address] [place] [address] Performed By: #### 2 857-1 #### [facility] CLIA [id number] [address] [place] [address] [place] Hematocrit (Bld) [Volume fraction] 35.7 % Low 39.0-51.0 [facility] Comment on above: Order Comment: Speci men Type: BLOOD SPECIMEN Ordering Facility: [facility] Address: [address] [place] [address] Performed By: #### 2 857-1 #### [facility] CLIA [id number] [address] [place] [address] [place] Hemoglobin (Bld) [Mass/Vol] 12.2 g/dL Low 13.0-17.0 [facility] Comment on above: Order Comment: Speci men Type: BLOOD SPECIMEN Ordering Facility: [facility] Address: [address] [place] [address] Performed By: #### 2 857-1 #### [facility] CLIA [id number] [address] [place] [address] [place] Immature granulocytes (Bld) [#/Vol] 0.04 10*3/uL Normal <0.10 [facility] Comment on above: Order Comment: Speci men Type: BLOOD SPECIMEN Ordering Facility: [facility] Address: [address] [place] [address] Performed By: #### 2 857-1 #### [facility] CLIA [id number] [address] [place] [address] [place] Immature granulocytes/100 WBC (Bld) 0.7 % Normal [facility] Comment on above: Order Comment: Speci men Type: BLOOD SPECIMEN Ordering Facility: [facility] Address: [address] [place] [address] Performed By: #### 2 857-1 #### [facility] CLIA [id number] [address] [place] [address] [place] Lymphocytes (Bld) [#/Vol] 1.55 10*3/uL Normal 1.00-4.00 [facility] Comment on above: Order Comment: Speci men Type: BLOOD SPECIMEN Ordering Facility: [facility] Address: [address] [place] [address] Performed By: #### 2 857-1 #### [facility] CLIA [id number] [address] [place] [address] [place] Lymphocytes/100 WBC (Bld) 26.5 % Normal [facility] Comment on above: Order Comment: Speci men Type: BLOOD SPECIMEN Ordering Facility: [facility] Address: [address] [place] [address] Performed By: #### 2 857-1 #### [facility] CLIA [id number] [address] [place] [address] [place] MCH (RBC) [Entitic mass] 32.4 pg Normal 26.0-34.0 [facility] Comment on above: Order Comment: Speci men Type: BLOOD SPECIMEN Ordering Facility: [facility] Address: [address] [place] [address] Performed By: #### 2 857-1 #### [facility] CLIA [id number] [address] [place] [address] [place] MCHC (RBC) [Mass/Vol] 34.2 g/dL Normal 30.5-36.0 [facility] Comment on above: Order Comment: Speci men Type: BLOOD SPECIMEN Ordering Facility: [facility] Address: [address] [place] [address] Performed By: #### 2 857-1 #### [facility] CLIA [id number] [address] [place] [address] [place] MCV (RBC) [Entitic vol] 94.9 fL Normal 80.0-100.0 [facility] Comment on above: Order Comment: Speci men Type: BLOOD SPECIMEN Ordering Facility: [facility] Address: [address] [place] [address] Performed By: #### 2 857-1 #### [facility] CLIA [id number] [address] [place] [address] [place] Monocytes (Bld) [#/Vol] 0.55 10*3/uL Normal <0.87 [facility] Comment on above: Order Comment: Speci men Type: BLOOD SPECIMEN Ordering Facility: [facility] Address: [address] [place] [address] Performed By: #### 2 857-1 #### [facility] CLIA [id number] [address] [place] [address] [place] Monocytes/100 WBC (Bld) 9.4 % Normal [facility] Comment on above: Order Comment: Speci men Type: BLOOD SPECIMEN Ordering Facility: [facility] Address: [address] [place] [address] Performed By: #### 2 857-1 #### [facility] CLIA [id number] [address] [place] [address] [place] Neutrophils (Bld) [#/Vol] 3.19 10*3/uL Normal 1.45-7.50 [facility] Comment on above: Order Comment: Speci men Type: BLOOD SPECIMEN Ordering Facility: [facility] Address: [address] [place] [address] Performed By: #### 2 857-1 #### [facility] CLIA [id number] [address] [place] [address] [place] Neutrophils/100 WBC (Bld) 54.4 % Normal [facility] Comment on above: Order Comment: Speci men Type: BLOOD SPECIMEN Ordering Facility: [facility] Address: [address] [place] [address] Performed By: #### 2 857-1 #### [facility] CLIA [id number] [address] [place] [address] [place] Nucleated RBC (Bld) [#/Vol] 10*3/uL Normal <0.01 [facility] Comment on above: Order Comment: Speci men Type: BLOOD SPECIMEN Ordering Facility: [facility] Address: [address] [place] [address] Performed By: #### 2 857-1 #### [facility] CLIA [id number] [address] [place] [address] [place] Nucleated RBC/100 WBC (Bld) [Ratio] 0.0 /100 WBC Normal [facility] Comment on above: Order Comment: Speci men Type: BLOOD SPECIMEN Ordering Facility: [facility] Address: [address] [place] [address] Performed By: #### 2 857-1 #### [facility] CLIA [id number] [address] [place] [address] [place] Platelet mean volume (Bld) [Entitic vol] 9.4 fL Normal 9.0-12.7 [facility] Comment on above: Order Comment: Speci men Type: BLOOD SPECIMEN Ordering Facility: [facility] Address: [address] [place] [address] Performed By: #### 2 857-1 #### [facility] CLIA [id number] [address] [place] [address] [place] Platelets (Bld) [#/Vol] 177 10*3/uL Normal 150-400 [facility] Comment on above: Order Comment: Speci men Type: BLOOD SPECIMEN Ordering Facility: [facility] Address: [address] [place] [address] Performed By: #### 2 857-1 #### [facility] CLIA [id number] [address] [place] [address] [place] RBC (Bld) [#/Vol] 3.76 10*6/uL Low 4.20-6.00 [facility] Comment on above: Order Comment: Speci men Type: BLOOD SPECIMEN Ordering Facility: [facility] Address: [address] [place] [address] Performed By: #### 2 857-1 #### [facility] CLIA [id number] [address] [place] [address] [place] WBC (Bld) [#/Vol] 5.86 10*3/uL Normal 3.70-11.00 [facility] Comment on above: Order Comment: Speci men Type: BLOOD SPECIMEN Ordering Facility: [facility] Address: [address] [place] [address] Performed By: #### 2 857-1 #### [facility] CLIA [id number] [address] [place], [place] [address] [address] [place] Comprehensive metabolic 2000 panelOrdered By: Liza Lilly on 08-01-2024 Albumin [Mass/Vol] 4.2 g/dL 3.9 - 4.9 g/dL [facility] ALP [Catalytic activity/Vol] 75 U/L 38 - 113 U/L [facility] ALT [Catalytic activity/Vol] 17 U/L 10 - 54 U/L [facility] Anion gap [Moles/Vol] 11 mmol/L 8 - 15 mmol/L [facility] AST [Catalytic activity/Vol] 17 U/L 14 - 40 U/L [facility] Bilirubin [Mass/Vol] 0.6 mg/dL 0.2 - 1.3 mg/dL [facility] Calcium [Mass/Vol] 10.3 mg/dL High 8.5 - 10. 2 mg/dL [facility] Chloride [Moles/Vol] 100 mmol/L 98 - 107 mmol/L [facility] CO2 [Moles/Vol] 26 mmol/L 22 - 30 mmol/L [facility] Creatinine [Mass/Vol] 0.81 mg/dL 0.73 - 1.22 mg/dL [facility] GFR/1.73 sq M.predicted among non-blacks MDRD (S/P/Bld) [Vol rate/Area] 90 mL/min/{1.73_m2} - PINF [facility] Comment on above: Estimated Glomerular [...] 119 mg/dL High 74 - 99 mg/dL [facility] Comment on above: The [place] Diab[employer] Association (ADA) provides guidance for [...] Standards of Medical Care in Diabetes 2016, [place] [employer]. Diabetes Care. 2016.39(Suppl 1). Interpretation and review of laboratory results Abnormal [facility] Potassium [Moles/Vol] 4.8 mmol/L 3.7 - 5.1 mmol/L [facility] Protein [Mass/Vol] 6.3 g/dL 6.3 - 8.0 g/dL [facility] Sodium [Moles/Vol] 137 mmol/L 136 - 144 mmol/L [facility] Urea nitrogen [Mass/Vol] 14 mg/dL 9 - 24 mg/dL [facility] Comprehensive metabolic 2000 panelon 08-01-2024 Albumin [Mass/Vol] 4.2 g/dL Normal 3.9-4.9 [facility] Comment on above: Order Comment: Nicanor camilo Type: BLOOD SPECIMEN Ordering Facility: [facility] Address: [address] [place] [address] Performed By: #### 2 857-1 #### [facility] CLIA [id number] [address] [place] [address] [place] ALP [Catalytic activity/Vol] 75 U/L Normal 38-113 [facility] Comment on above: Order Comment: Speci men Type: BLOOD SPECIMEN Ordering Facility: [facility] Address: [address] [place] [address] Performed By: #### 2 857-1 #### [facility] CLIA [id number] [address] [place] [address] [place] ALT [Catalytic activity/Vol] 17 U/L Normal 10-54 [facility] Comment on above: Order Comment: Francii men Type: BLOOD SPECIMEN Ordering Facility: [facility] Address: [address] [place] [address] Performed By: #### 2 857-1 #### [facility] CLIA [id number] [address] [place] [address] [place] Anion gap [Moles/Vol] 11 mmol/L Normal 8-15 [facility] Comment on above: Order Comment: Speci men Type: BLOOD SPECIMEN Ordering Facility: [facility] Address: [address] [place] [address] Performed By: #### 2 857-1 #### [facility] CLIA [id number] [address] [place] [address] [place] AST [Catalytic activity/Vol] 17 U/L Normal 14-40 [facility] Comment on above: Order Comment: Speci men Type: BLOOD SPECIMEN Ordering Facility: [facility] Address: [address] [place] [address] Performed By: #### 2 857-1 #### [facility] CLIA [id number] [address] [place] [address] [place] Bilirubin [Mass/Vol] 0.6 mg/dL Normal 0.2-1.3 [facility] Comment on above: Order Comment: Speci men Type: BLOOD SPECIMEN Ordering Facility: [facility] Address: [address] [place] [address] Performed By: #### 2 857-1 #### [facility] CLIA [id number] [address] [place] [address] [place] Calcium [Mass/Vol] 10.3 mg/dL High 8.5-10.2 [facility] Comment on above: Order Comment: Speci men Type: BLOOD SPECIMEN Ordering Facility: [facility] Address: [address] [place] [address] Performed By: #### 2 857-1 #### [facility] CLIA [id number] [address] [place] [address] [place] Chloride [Moles/Vol] 100 mmol/L Normal 98-107 [facility] Comment on above: Order Comment: Speci men Type: BLOOD SPECIMEN Ordering Facility: [facility] Address: [address] [place] [address] Performed By: #### 2 857-1 #### [facility] CLIA [id number] [address] [place] [address] [place] CO2 [Moles/Vol] 26 mmol/L Normal 22-30 [facility] Comment on above: Order Comment: Speci men Type: BLOOD SPECIMEN Ordering Facility: [facility] Address: [address] [place] [address] Performed By: #### 2 857-1 #### [facility] CLIA [id number] [address] [place] [address] [place] Creatinine [Mass/Vol] 0.81 mg/dL Normal 0.73-1.22 [facility] Comment on above: Order Comment: Speci men Type: BLOOD SPECIMEN Ordering Facility: [facility] Address: [address] [place] [address] Performed By: #### 2 857-1 #### [facility] CLIA [id number] [address] [place] [address] [place] Creatinine and Glomerular filtration rate.predicted panel (S/P/Bld) 90 mL/min/1.73m??? Normal >=60 [facility] Comment on above: Order Comment: Speci men Type: BLOOD SPECIMEN Ordering Facility: [facility] Address: [address] [place] [address] Result Comment: Renae mated Glomerular Filtration Rate [...] GFR. Performed By: #### 2 857-1 #### [facility] CLIA [id number] [address] [place] [address] [place] Glucose [Mass/Vol] 119 mg/dL High 74-99 [facility] Comment on above: Order Comment: Speci men Type: BLOOD SPECIMEN Ordering Facility: [facility] Address: [address] [place] [address] Result Comment: The [place] Diabetes Association (ADA) provides guidance for cutoff [...] Standards of Medical Care in Diabetes 2016, [place] [employer]. Diabetes Care. 2016.39(Suppl 1). Performed By: #### 2 857-1 #### [facility] CLIA [id number] [address] [place] [address] [place] Potassium [Moles/Vol] 4.8 mmol/L Normal 3.7-5.1 [facility] Comment on above: Order Comment: Speci men Type: BLOOD SPECIMEN Ordering Facility: [facility] Address: [address] [place] [address] Performed By: #### 2 857-1 #### [facility] CLIA [id number] [address] [place] [address] [place] Protein [Mass/Vol] 6.3 g/dL Normal 6.3-8.0 [facility] Comment on above: Order Comment: Francii men Type: BLOOD SPECIMEN Ordering Facility: [facility] Address: [address] [place] [address] Performed By: #### 2 857-1 #### [facility] CLIA [id number] [address] [place] [address] [place] Sodium [Moles/Vol] 137 mmol/L Normal 136-144 [facility] Comment on above: Order Comment: Speci men Type: BLOOD SPECIMEN Ordering Facility: [facility] Address: [address] [place] [address] Performed By: #### 2 857-1 #### [facility] CLIA [id number] [address] [place] [address] [place] Urea nitrogen [Mass/Vol] 14 mg/dL Normal 9-24 [facility] Comment on above: Order Comment: Speci men Type: BLOOD SPECIMEN Ordering Facility: [facility] Address: [address] [place] [address] Performed By: #### 2 857-1 #### [facility] CLIA [id number] [address] [place] [address] [place] Eosinophils/100 WBC Auto (Bl d)on 08-01-2024 Eosinophils/100 WBC (Bld) Automated eosinophil % [facility] Erythrocyte distribution wid th Auto (RBC) [Ratio]on 08-01-2024 Erythrocyte distribution width (RBC) [Ratio] Erythrocyte distribution width [Ratio] by Automated count 11.5-15.0 [facility] Hematocrit Auto (Bld) [Volum e fraction]on 08-01-2024 Hematocrit (Bld) [Volume fraction] Hematocrit [Volume Fraction] of Blood by Automated count Low 39.0-51.0 [facility] Hemoglobin [Mass/volume] in Bloodon 08-01-2024 Hemoglobin (Bld) [Mass/Vol] Hemoglobin [Mass/volume] in Blood Low 13.0-17.0 [facility] Laboratory - Chemistry and C hemistry - challengeon 08-01-2024 Albumin [Mass/Vol] 4.2 g/dL 3.9-4.9 [facility] ALP [Catalytic activity/Vol] 75 U/L 38-113 [facility] ALT [Catalytic activity/Vol] 17 U/L 10-54 [facility] AST [Catalytic activity/Vol] 17 U/L 14-40 [facility] Bilirubin [Mass/Vol] 0.6 mg/dL 0.2-1.3 [facility] Calcium [Mass/Vol] 10.3 mg/dL High 8.5-10.2 [facility] Chloride [Moles/Vol] 100 mmol/L 98-107 [facility] CO2 [Moles/Vol] 26 mmol/L 22-30 [facility] Creatinine [Mass/Vol] 0.81 mg/dL 0.73-1.22 [facility] Glucose [Mass/Vol] 119 mg/dL High 74-99 [facility] Comment on above: The [place] Diab[employer] s Association (ADA) provides guidance for [...] Standards of Medical Care in Diabetes 2016, [place] [employer]. Diabetes Care. 2016.39(Suppl 1). Potassium [Moles/Vol] 4.8 mmol/L 3.7-5.1 [facility] Sodium [Moles/Vol] 137 mmol/L 136-144 [facility] Urea nitrogen [Mass/Vol] 14 mg/dL 9-24 [facility] Laboratory - Hematology and Cell countson 08-01-2024 Eosinophils (Bld) [#/Vol] 0.50 10*3/uL High <0.46 [facility] Immature granulocytes (Bld) [#/Vol] 0.04 10*3/uL <0.10 [facility] Immature granulocytes/100 WBC (Bld) 0.7 % [facility] Leukocytes [#/volume] correc jomar for nucleated erythrocytes in Blood by Automated counon 08-01-2024 WBC corrected for nucl RBC Auto (Bld) [#/Vol] Leukocytes [#/volume] corrected for nucleated erythrocytes in Blood by Automated coun 3.70-11.00 [facility] Lymphocytes Auto (Bld) [#/Vo l]on 08-01-2024 Lymphocytes (Bld) [#/Vol] Lymphocytes [#/volume] in Blood by Automated count 1.00-4.00 [facility] Lymphocytes/100 WBC Auto (Bl d)on 08-01-2024 Lymphocytes/100 WBC (Bld) Lymphocytes/100 leukocytes in Blood by Automated count [facility] MCH Auto (RBC) [Entitic mass ]on 08-01-2024 MCH (RBC) [Entitic mass] MCH [Entitic mass] by Automated count 26.0-34.0 [facility] MCHC Auto (RBC) [Mass/Vol]on 08-01-2024 MCHC (RBC) [Mass/Vol] MCHC [Mass/volume] by Automated count 30.5-36.0 [facility] MCV Auto (RBC) [Entitic vol] on 08-01-2024 MCV (RBC) [Entitic vol] MCV [Entitic volume] by Automated count 80.0-100.0 [facility] Monocytes Auto (Bld) [#/Vol] on 08-01-2024 Monocytes (Bld) [#/Vol] Automated blood monocyte count <0.87 [facility] Monocytes/100 WBC Auto (Bld) on 08-01-2024 Monocytes/100 WBC (Bld) Automated monocyte % [facility] Neutrophils Auto (Bld) [#/Vo l]on 08-01-2024 Neutrophils (Bld) [#/Vol] Neutrophils [#/volume] in Blood by Automated count 1.45-7.50 [facility] Neutrophils/100 WBC Auto (Bl d)on 08-01-2024 Neutrophils/100 WBC (Bld) Automated neutrophil % [facility] No Panel Informationon 08-01 Estimated GFR (CKD-EPI) 90 mL/min/1.73m??? >=60 [facility] Comment on above: Estimated Glomerular [...] GFR. Prostate Specific Antigen 0.19 ng/mL <2.60 [facility] Comment on above: Total PSA test metho dology used is the Electrochemiluminescence Immunoassay by [employer]. Total PSA values by differing methodologies cannot be interchanged. Nucleated RBC Auto (Bld) [#/ Vol]on 08-01-2024 Nucleated RBC (Bld) [#/Vol] Nucleated erythrocytes [#/volume] in Blood by Automated count <0.01 [facility] Nucleated erythrocytes [Pres ence] in Blood by Automated counton 08-01-2024 Nucleated RBC Auto Ql (Bld) Nucleated erythrocytes [Presence] in Blood by Automated count [facility] PROSTATE-SPECIFIC ANTIGEN DI AGNOSTICon 08-01-2024 Prostate specific Ag [Mass/Vol] 0.19 ng/mL NINF - 2.60 ng/mL [facility] Comment on above: Total PSA test metho dology used is the Electrochemiluminescence Immunoassay by [employer]. Total PSA values by differing methodologies cannot be interchanged. PSA SerPl-mCncon 08-01-2024 Prostate specific Ag [Mass/Vol] 0.19 ng/mL Normal <2.60 [facility] Comment on above: Order Comment: Speci men Type: BLOOD SPECIMEN Ordering Facility: [facility] Address: [address] [place] [address] Result Comment: Tota l PSA test methodology used is the Electrochemiluminescence Immunoassay by [employer]. Total PSA values by differing methodologies cannot be interchanged. Performed By: #### 2 857-1 #### [facility] CLIA [id number] [address] [place] [address] [place] Platelet mean volume Auto (B ld) [Entitic vol]on 08-01-2024 Platelet mean volume (Bld) [Entitic vol] Platelet mean volume [Entitic volume] in Blood by Automated count 9.0-12.7 [facility] Platelets Auto (Bld) [#/Vol] on 08-01-2024 Platelets (Bld) [#/Vol] Platelets [#/volume] in Blood by Automated count 150-400 [facility] Prostate specific Ag [Mass/V ol]on 08-01-2024 Interpretation and review of laboratory results Normal [facility] Protein [Mass/volume] in Ser um or Plasmaon 08-01-2024 Protein [Mass/Vol] Protein [Mass/volume ] in Serum or Plasma 6.3-8.0 [facility] RBC Auto (Bld) [#/Vol]on RBC (Bld) [#/Vol] Erythrocytes [#/volu me] in Blood by Automated count Low 4.20-6.00 [facility] Serum or plasma anion gap de terminationon 08-01-2024 Anion gap [Moles/Vol] Serum or plasma anion gap determination 8-15 [facility] CNPNon 07-25-2024 CNPN Telephone (LABSAN) PABLO FELIX ([id number]) 1945 M Date Time Provider Department 07/25/24 [...] Unknown Date Reviewed: 02/02/2024 Reviewed by: Lynne Rajan APRN.[employer] - Fully Assessed Reason for Visit: Lab Orders [1688] Primary Visit Diagnosis:Malignant neoplasm of prostate (HCC) [C61] Order(s):COMPLETE BLOOD COUNT AND DIFFERENTIAL [SQCBCDIF] Order #: [id number] FUTURE COMPREHENSIVE METABOLIC PANEL [SQCMP] Order #: [id number] FUTURE PROSTATE-SPECIFIC ANTIGEN DIAGNOSTIC [SQPSA] Order #: [id number] FUTURE Prescriptions as of 10/16/2024 - enzalutamide (XTANDI) 40 mg tablet Take 4 tablets (160 mg) by mouth once daily. - Calcium Citrate-Vitamin D3 200 mg-6.25 mcg (250 unit) tab Take 2 tablets by mouth once daily. - metoprolol succinate ER (TOPROL XL) 25 mg 24 hr tablet Take by mouth. - Aigktcxhmvxxa-Yzpfbzvf-Tuzm in (MULTIVITAMIN 50 PLUS) tab Take 1 [...] Encounter Status:Closed by JOSEMANUEL BLANCHARD on 10/16/24 [facility] CNOVSFormerly Named [facility] 05-09-2024 [facility] Visit (SP) Office (H EMASA) PABLO FELIX ([id number]) 1945 M Date Time Provider Department 05/09/24 [...] PHYSICIANS: Dr. Anthony Scruggs, Dr. Khan, [facility] Cardiology Portions of this [...] mg 24 hr tablet Take by mouth. 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 Left base margin positive for neoplasm. Seminal vesicles with no diagnostic abnormality. 2 resected lymph nodes negative for neoplasm. LABS: Hemoglobin (g/dL) Date Value 05/03/2024 11.5 05/08/2018 12.8 Hematocrit (%) Date Value 05/03/2024 33.2 05/08/2018 36.8 WBC (k/uL) Date Value 1 (more content not included)... Normal [facility] CBC W Auto Differential pane l (Bld)on 05-03-2024 Basophils (Bld) [#/Vol] 0.03 10*3/uL Normal <0.11 [facility] Comment on above: Order Comment: Speci men Type: BLOOD SPECIMEN Ordering Facility: [facility] Address: [address] [place] [address] Performed By: #### 5 7021-8 #### [facility] CLIA [id number] [address] [place] [address] Basophils/100 WBC (Bld) 0.5 % Normal [facility] Comment on above: Order Comment: Speci men Type: BLOOD SPECIMEN Ordering Facility: [facility] Address: [address] [place] [address] Performed By: #### 5 7021-8 #### [facility] CLIA [id number] [address] [place] [address]398 Differential cell count method Nom (Bld) Auto Normal [facility] Comment on above: Order Comment: Speci men Type: BLOOD SPECIMEN Ordering Facility: [facility] Address: [address] [place] [address] Performed By: #### 5 7021-8 #### [facility] CLIA [id number] [address] [place] [address] Eosinophils (Bld) [#/Vol] 0.48 10*3/uL High <0.46 [facility] Comment on above: Order Comment: Speci men Type: BLOOD SPECIMEN Ordering Facility: [facility] Address: [address] [place] [address] Performed By: #### 5 7021-8 #### [facility] CLIA [id number] [address] [place] [address] Eosinophils/100 WBC (Bld) 8.0 % Normal [facility] Comment on above: Order Comment: Speci men Type: BLOOD SPECIMEN Ordering Facility: [facility] Address: [address] [place] [address] Performed By: #### 5 7021-8 #### [facility] CLIA [id number] [address] [place] [address] Erythrocyte distribution width (RBC) [Ratio] 12.6 % Normal 11.5-15.0 [facility] Comment on above: Order Comment: Speci men Type: BLOOD SPECIMEN Ordering Facility: [facility] Address: [address] [place] [address] Performed By: #### 5 7021-8 #### [facility] CLIA [id number] [address] [place] [address] Hematocrit (Bld) [Volume fraction] 33.2 % Low 39.0-51.0 [facility] Comment on above: Order Comment: Speci men Type: BLOOD SPECIMEN Ordering Facility: [facility] Address: [address] [place] [address] Performed By: #### 5 7021-8 #### [facility] CLIA [id number] [address] [place] [address] Hemoglobin (Bld) [Mass/Vol] 11.5 g/dL Low 13.0-17.0 [facility] Comment on above: Order Comment: Speci men Type: BLOOD SPECIMEN Ordering Facility: [facility] Address: [address] [place] [address] Performed By: #### 5 7021-8 #### [facility] CLIA [id number] [address] [place] [address] Immature granulocytes (Bld) [#/Vol] 0.04 10*3/uL Normal <0.10 [facility] Comment on above: Order Comment: Speci men Type: BLOOD SPECIMEN Ordering Facility: [facility] Address: [address] [place] [address] Performed By: #### 5 7021-8 #### [facility] CLIA [id number] [address] [place] [address] Immature granulocytes/100 WBC (Bld) 0.7 % Normal [facility] Comment on above: Order Comment: Speci men Type: BLOOD SPECIMEN Ordering Facility: [facility] Address: [address] [place] [address] Performed By: #### 5 7021-8 #### [facility] CLIA [id number] [address] [place] [address] 76590 Lymphocytes (Bld) [#/Vol] 1.76 10*3/uL Normal 1.00-4.00 [facility] Comment on above: Order Comment: Speci men Type: BLOOD SPECIMEN Ordering Facility: [facility] Address: [address] [place] [address] Performed By: #### 5 7021-8 #### [facility] CLIA [id number] [address] [place] [address] 91097 Lymphocytes/100 WBC (Bld) 29.4 % Normal [facility] Comment on above: Order Comment: Speci men Type: BLOOD SPECIMEN Ordering Facility: [facility] Address: [address] [place] [address] Performed By: #### 5 7021-8 #### [facility] CLIA [id number] [address] [place] [address] 75738 MCH (RBC) [Entitic mass] 33.0 pg Normal 26.0-34.0 [facility] Comment on above: Order Comment: Speci men Type: BLOOD SPECIMEN Ordering Facility: [facility] Address: [address] [place] [address] Performed By: #### 5 7021-8 #### [facility] CLIA [id number] [address] [place] [address] 72453 MCHC (RBC) [Mass/Vol] 34.6 g/dL Normal 30.5-36.0 [facility] Comment on above: Order Comment: Speci men Type: BLOOD SPECIMEN Ordering Facility: [facility] Address: [address] [place] [address] Performed By: #### 5 7021-8 #### [facility] CLIA [id number] [address] [place] [address] 99409 MCV (RBC) [Entitic vol] 95.1 fL Normal 80.0-100.0 [facility] Comment on above: Order Comment: Speci men Type: BLOOD SPECIMEN Ordering Facility: [facility] Address: [address] [place] [address] Performed By: #### 5 7021-8 #### [facility] CLIA [id number] [address] [place] [address] 92844 Monocytes (Bld) [#/Vol] 0.48 10*3/uL Normal <0.87 [facility] Comment on above: Order Comment: Speci men Type: BLOOD SPECIMEN Ordering Facility: [facility] Address: [address] [place] [address] Performed By: #### 5 7021-8 #### [facility] CLIA [id number] [address] [place] [address] 50712 Monocytes/100 WBC (Bld) 8.0 % Normal [facility] Comment on above: Order Comment: Speci men Type: BLOOD SPECIMEN Ordering Facility: [facility] Address: [address] [place] [address] Performed By: #### 5 7021-8 #### [facility] CLIA [id number] [address] [place] [address] 00218 Neutrophils (Bld) [#/Vol] 3.19 10*3/uL Normal 1.45-7.50 [facility] Comment on above: Order Comment: Speci men Type: BLOOD SPECIMEN Ordering Facility: [facility] Address: [address] [place] [address] Performed By: #### 5 7021-8 #### [facility] CLIA [id number] [address] [place] [address] 61197 Neutrophils/100 WBC (Bld) 53.4 % Normal [facility] Comment on above: Order Comment: Speci men Type: BLOOD SPECIMEN Ordering Facility: [facility] Address: [address] [place] [address] Performed By: #### 5 7021-8 #### [facility] CLIA [id number] [address] [place] [address] Nucleated RBC (Bld) [#/Vol] 10*3/uL Normal <0.01 [facility] Comment on above: Order Comment: Speci men Type: BLOOD SPECIMEN Ordering Facility: [facility] Address: [address] [place] [address] Performed By: #### 5 7021-8 #### [facility] CLIA [id number] [address] [place] [address] 07952 Nucleated RBC/100 WBC (Bld) [Ratio] 0.0 /100 WBC Normal [facility] Comment on above: Order Comment: Speci men Type: BLOOD SPECIMEN Ordering Facility: [facility] Address: [address] [place] [address] Performed By: #### 5 7021-8 #### [facility] CLIA [id number] [address] [place] [address] 49734 Platelet mean volume (Bld) [Entitic vol] 9.3 fL Normal 9.0-12.7 [facility] Comment on above: Order Comment: Speci men Type: BLOOD SPECIMEN Ordering Facility: [facility] Address: [address] [place] [address] Performed By: #### 5 7021-8 #### [facility] CLIA [id number] [address] [place] [address] 04841 Platelets (Bld) [#/Vol] 192 10*3/uL Normal 150-400 [facility] Comment on above: Order Comment: Speci men Type: BLOOD SPECIMEN Ordering Facility: [facility] Address: [address] [place] [address] Performed By: #### 5 7021-8 #### [facility] CLIA [id number] [address] [place] [address] 87538 RBC (Bld) [#/Vol] 3.49 10*6/uL Low 4.20-6.00 [facility] Comment on above: Order Comment: Speci men Type: BLOOD SPECIMEN Ordering Facility: [facility] Address: [address] [place], [place] [address] Performed By: #### 5 7021-8 #### [facility] CLIA [id number] [address] [place] [address] 14310 WBC (Bld) [#/Vol] 5.98 10*3/uL Normal 3.70-11.00 [facility] Comment on above: Order Comment: Speci men Type: BLOOD SPECIMEN Ordering Facility: [facility] Address: [address] [place] [address] Performed By: #### 5 7021-8 #### [facility] CLIA [id number] [address] [place] [address] 29263 Comprehensive metabolic 2000 panelon 05-03-2024 Albumin [Mass/Vol] 3.9 g/dL Normal 3.9-4.9 [facility] Comment on above: Order Comment: Speci men Type: BLOOD SPECIMEN Ordering Facility: [facility] Address: [address] [place] [address] Performed By: #### 2 857-1 #### [facility] CLIA [id number] [address] [place] [address] [place] ALP [Catalytic activity/Vol] 71 U/L Normal 38-113 [facility] Comment on above: Order Comment: Speci men Type: BLOOD SPECIMEN Ordering Facility: [facility] Address: [address] [place] [address] Performed By: #### 2 857-1 #### [facility] CLIA [id number] [address] [place], [place] [id number] [place] ALT [Catalytic activity/Vol] 16 U/L Normal 10-54 [facility] Comment on above: Order Comment: Speci men Type: BLOOD SPECIMEN Ordering Facility: [facility] Address: [address] [place] [address] Performed By: #### 2 857-1 #### [facility] CLIA [id number] [address] [place] [address] [place] Anion gap [Moles/Vol] 9 mmol/L Normal 8-15 [facility] Comment on above: Order Comment: Speci men Type: BLOOD SPECIMEN Ordering Facility: [facility] Address: [address] [place] [address] Performed By: #### 2 857-1 #### [facility] CLIA [id number] [address] [place] [address] [place] AST [Catalytic activity/Vol] 17 U/L Normal 14-40 [facility] Comment on above: Order Comment: Speci men Type: BLOOD SPECIMEN Ordering Facility: [facility] Address: [address] [place] [address] Performed By: #### 2 857-1 #### [facility] CLIA [id number] [address] [place] [address] [place] Bilirubin [Mass/Vol] 0.5 mg/dL Normal 0.2-1.3 [facility] Comment on above: Order Comment: Speci men Type: BLOOD SPECIMEN Ordering Facility: [facility] Address: [address] [place] [address] Performed By: #### 2 857-1 #### [facility] CLIA [id number] [address] [place] [address] [place] Calcium [Mass/Vol] 9.5 mg/dL Normal 8.5-10.2 [facility] Comment on above: Order Comment: Speci men Type: BLOOD SPECIMEN Ordering Facility: [facility] Address: [address] [place] [address] Performed By: #### 2 857-1 #### [facility] CLIA [id number] [address] [place] [address] [place] Chloride [Moles/Vol] 104 mmol/L Normal 98-107 [facility] Comment on above: Order Comment: Speci men Type: BLOOD SPECIMEN Ordering Facility: [facility] Address: [address] [place] [address] Performed By: #### 2 857-1 #### [facility] CLIA [id number] [address] [place] [address] [place] CO2 [Moles/Vol] 26 mmol/L Normal 22-30 [facility] Comment on above: Order Comment: Speci men Type: BLOOD SPECIMEN Ordering Facility: [facility] Address: [address] [place] [address] Performed By: #### 2 857-1 #### [facility] CLIA [id number] [address] [place] [address] [place] Creatinine [Mass/Vol] 0.88 mg/dL Normal 0.73-1.22 [facility] Comment on above: Order Comment: Speci men Type: BLOOD SPECIMEN Ordering Facility: [facility] Address: [address] [place] [address] Performed By: #### 2 857-1 #### [facility] CLIA [id number] [address] [place] [address] [place] Creatinine and Glomerular filtration rate.predicted panel (S/P/Bld) 88 mL/min/1.73m??? Normal >=60 [facility] Comment on above: Order Comment: Speci men Type: BLOOD SPECIMEN Ordering Facility: [facility] Address: [address] [place] [address] Result Comment: Renae mated Glomerular Filtration Rate [...] GFR. Performed By: #### 2 857-1 #### [facility] CLIA [id number] [address] [place] [address] [place] Glucose [Mass/Vol] 106 mg/dL High 74-99 [facility] Comment on above: Order Comment: Speci men Type: BLOOD SPECIMEN Ordering Facility: [facility] Address: [address] [place] [address] Result Comment: The [place] [employer] Association (ADA) provides guidance for cutoff [...] Standards of Medical Care in Diabetes 2016, [place] [employer]. Diabetes Care. 2016.39(Suppl 1). Performed By: #### 2 857-1 #### [facility] CLIA [id number] [address] [place] [address] [place] Potassium [Moles/Vol] 5.6 mmol/L High 3.7-5.1 [facility] Comment on above: Order Comment: Nicanor camilo Type: BLOOD SPECIMEN Ordering Facility: [facility] Address: [address] [place] [address] Performed By: #### 2 857-1 #### [facility] CLIA [id number] [address] [place] [address] [place] Protein [Mass/Vol] 6.3 g/dL Normal 6.3-8.0 [facility] Comment on above: Order Comment: Francii men Type: BLOOD SPECIMEN Ordering Facility: [facility] Address: [address] [place] [address] Performed By: #### 2 857-1 #### [facility] CLIA [id number] [address] [place] [address] [place] Sodium [Moles/Vol] 139 mmol/L Normal 136-144 [facility] Comment on above: Order Comment: Speci men Type: BLOOD SPECIMEN Ordering Facility: [facility] Address: [address] [place] [address] Performed By: #### 2 857-1 #### [facility] CLIA [id number] [address] [place] [address] [place] Urea nitrogen [Mass/Vol] 19 mg/dL Normal 9-24 [facility] Comment on above: Order Comment: Speci men Type: BLOOD SPECIMEN Ordering Facility: [facility] Address: [address] [place] [address] Performed By: #### 2 857-1 #### [facility] CLIA [id number] [address] [place] [address] [place] [facility] Prostate specific Ag [Mass/Vol] 0.18 ng/mL Normal <2.60 [facility] Comment on above: Order Comment: Speci men Type: BLOOD SPECIMEN Ordering Facility: [facility] Address: [address] [place] [address] Result Comment: Tota l PSA test methodology used is the Electrochemiluminescence Immunoassay by [employer]. Total PSA values by differing methodologies cannot be interchanged. Performed By: #### 2 857-1 #### [facility] CLIA [id number] [address] [place] [address] [place] Ambulatory Visit Summaryon [...] mg Tab) ipratropium nasal (ipratropium Nasal 0.06% [place]) metformin (metformin 1000 mg oral tablet) metoprolol [...] Anthony SCRUGGS MD Where: [facility] [address] [place] [address]- You Need to Schedule the Following Appointments Follow Up with Anthony SCRUGGS MD, URL When: Where: [address] [place] [address]- Medications What How Much When Instructions Unchanged [...] concerns Unchanged ipratropium nasal (ipratropium Nasal 0.06% [place]) Contact prescribing physician if questions or concerns [...] 0.23 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 [place] 9 (5+4), pT2b, N0, [place]. Last Lupron administered 04/2022. Taking Xtandi 160mg qd and Xgeva q3mos. Last seen by [facility] oncology 02/02/24. Plan at that [...] Contact Information KAEL JAMES, Anthony Lee, URL [address] [place], [place] [phone]- Additional Instructions: 6 mos w/ PSA and [...] 08:45 EDT Office Visiton 03-29-2024 Follow-up visit [id number] Pablo Felix 1945 M Date Provider Department Center 03/29/2024 LORA BANUELOS Family History Problem Relation Age of Onset Coronary artery disease Father Family Status - Relation Status Age at Father Level of Service:[address]66 [place] OFFICE/OUTPATIENT ESTABLISHED MOD MDM 30 MIN Normal [facility] Basophils Auto (Bld) [#/Vol] on 01-25-2024 Basophils (Bld) [#/Vol] 0.04 10*3/uL <0.11 [facility] Basophils/100 WBC Auto (Bld) on 01-25-2024 Basophils/100 WBC (Bld) 0.6 % [facility] Blood manual differential co mment interpretation narrativeon 01-25-2024 Manual differential comment [place] (Bld) [Interp] Auto [facility] Eosinophils/100 WBC Auto (Bl d)on 01-25-2024 Eosinophils/100 WBC (Bld) 5.9 % [facility] Erythrocyte distribution wid th Auto (RBC) [Ratio]on 01-25-2024 Erythrocyte distribution width (RBC) [Ratio] 12.7 % 11.5-15.0 [facility] Hematocrit Auto (Bld) [Volum e fraction]on 01-25-2024 Hematocrit (Bld) [Volume fraction] 34.6 % Low 39.0-51.0 [facility] Hemoglobin [Mass/volume] in Bloodon 01-25-2024 Hemoglobin (Bld) [Mass/Vol] 11.8 g/dL Low 13.0-17.0 [facility] Laboratory - Chemistry and C hemistry - challengeon 01-25-2024 Albumin [Mass/Vol] 4.0 g/dL 3.9-4.9 [facility] ALP [Catalytic activity/Vol] 74 U/L 38-113 [facility] ALT [Catalytic activity/Vol] 18 U/L 10-54 [facility] AST [Catalytic activity/Vol] 19 U/L 14-40 [facility] Bilirubin [Mass/Vol] 0.7 mg/dL 0.2-1.3 [facility] Calcium [Mass/Vol] 9.9 mg/dL 8.5-10.2 [facility] Chloride [Moles/Vol] 103 mmol/L 98-107 [facility] CO2 [Moles/Vol] 25 mmol/L 22-30 [facility] Creatinine [Mass/Vol] 0.79 mg/dL 0.73-1.22 [facility] Glucose [Mass/Vol] 112 mg/dL High 74-99 [facility] Comment on above: The [place] Diabete s Association (ADA) provides guidance for [...] Standards of Medical Care in Diabetes 2016, [place] [employer]. Diabetes Care. 2016.39(Suppl 1). Potassium [Moles/Vol] 5.2 mmol/L High 3.7-5.1 [facility] Sodium [Moles/Vol] 137 mmol/L 136-144 [facility] Urea nitrogen [Mass/Vol] 15 mg/dL 9-24 [facility] Laboratory - Hematology and Cell countson 01-25-2024 Eosinophils (Bld) [#/Vol] 0.40 10*3/uL <0.46 [facility] Immature granulocytes (Bld) [#/Vol] 0.07 10*3/uL <0.10 [facility] Immature granulocytes/100 WBC (Bld) 1.0 % [facility] Leukocytes [#/volume] correc jomar for nucleated erythrocytes in Blood by Automated counon 01-25-2024 WBC corrected for nucl RBC Auto (Bld) [#/Vol] 6.80 k/uL 3.70-11.00 [facility] Lymphocytes Auto (Bld) [#/Vo l]on 01-25-2024 Lymphocytes (Bld) [#/Vol] 2.16 10*3/uL 1.00-4.00 [facility] Lymphocytes/100 WBC Auto (Bl d)on 01-25-2024 Lymphocytes/100 WBC (Bld) 31.8 % [facility] MCH Auto (RBC) [Entitic mass ]on 01-25-2024 MCH (RBC) [Entitic mass] 32.2 pg 26.0-34.0 [facility] MCHC Auto (RBC) [Mass/Vol]on 01-25-2024 MCHC (RBC) [Mass/Vol] 34.1 g/dL 30.5-36.0 [facility] MCV Auto (RBC) [Entitic vol] on 01-25-2024 MCV (RBC) [Entitic vol] 94.3 fL 80.0-100.0 [facility] Monocytes Auto (Bld) [#/Vol] on 01-25-2024 Monocytes (Bld) [#/Vol] 0.60 10*3/uL <0.87 [facility] Monocytes/100 WBC Auto (Bld) on 01-25-2024 Monocytes/100 WBC (Bld) 8.8 % [facility] Neutrophils Auto (Bld) [#/Vo l]on 01-25-2024 Neutrophils (Bld) [#/Vol] 3.53 10*3/uL 1.45-7.50 [facility] Neutrophils/100 WBC Auto (Bl d)on 01-25-2024 Neutrophils/100 WBC (Bld) 51.9 % [facility] No Panel Informationon 01-24 Estimated GFR (CKD-EPI) 91 mL/min/1.73m??? >=60 [facility] Comment on above: Estimated Glomerular [...] GFR. Prostate Specific Antigen 0.15 ng/mL <2.60 [facility] Comment on above: Total PSA test metho dology used is the Electrochemiluminescence Immunoassay by [employer]. Total PSA values by differing methodologies cannot be interchanged. Nucleated RBC Auto (Bld) [#/ Vol]on 01-25-2024 Nucleated RBC (Bld) [#/Vol] 10*3/uL <0.01 [facility] Nucleated erythrocytes [Pres ence] in Blood by Automated counton 01-25-2024 Nucleated RBC Auto Ql (Bld) 0.0 /100{WBC} [facility] Platelet mean volume Auto (B ld) [Entitic vol]on 01-25-2024 Platelet mean volume (Bld) [Entitic vol] 10.3 fL 9.0-12.7 [facility] Platelets Auto (Bld) [#/Vol] on 01-25-2024 Platelets (Bld) [#/Vol] 184 10*3/uL 150-400 [facility] Protein [Mass/volume] in Ser um or Plasmaon 01-25-2024 Protein [Mass/Vol] 6.6 g/dL 6.3-8.0 [facility] RBC Auto (Bld) [#/Vol]on RBC (Bld) [#/Vol] 3.67 10*6/uL Low 4.20-6.00 [facility] Serum or plasma anion gap de terminationon 01-25-2024 Anion gap [Moles/Vol] 9 mmol/L 8-15 [facility] Consultation Noteon 11-07-19 Consultation Note [id number] Normal [facility] Basophils Auto (Bld) [#/Vol] on 10-30-2023 Basophils (Bld) [#/Vol] 0.04 10*3/uL <0.11 [facility] Basophils/100 WBC Auto (Bld) on 10-30-2023 Basophils/100 WBC (Bld) 0.5 % [facility] Blood manual differential co mment interpretation narrativeon 10-30-2023 Manual differential comment [place] (Bld) [Interp] Auto [facility] Eosinophils/100 WBC Auto (Bl d)on 10-30-2023 Eosinophils/100 WBC (Bld) 4.3 % [facility] Erythrocyte distribution wid th Auto (RBC) [Ratio]on 10-30-2023 Erythrocyte distribution width (RBC) [Ratio] 12.8 % 11.5-15.0 [facility] Hematocrit Auto (Bld) [Volum e fraction]on 10-30-2023 Hematocrit (Bld) [Volume fraction] 35.8 % 39.0-51.0 [facility] Hemoglobin [Mass/volume] in Bloodon 10-30-2023 Hemoglobin (Bld) [Mass/Vol] 12.2 g/dL 13.0-17.0 [facility] Laboratory - Chemistry and C hemistry - challengeon 10-30-2023 Albumin [Mass/Vol] 4.1 g/dL 3.9-4.9 [facility] ALP [Catalytic activity/Vol] 75 U/L 38-113 [facility] ALT [Catalytic activity/Vol] 16 U/L 10-54 [facility] AST [Catalytic activity/Vol] 16 U/L 14-40 [facility] Bilirubin [Mass/Vol] 0.7 mg/dL 0.2-1.3 [facility] Calcium [Mass/Vol] 9.8 mg/dL 8.5-10.2 [facility] Chloride [Moles/Vol] 103 mmol/L 97-105 [facility] CO2 [Moles/Vol] 24 mmol/L 22-30 [facility] Creatinine [Mass/Vol] 0.88 mg/dL 0.73-1.22 [facility] Glucose [Mass/Vol] 128 mg/dL 74-99 [facility] Comment on above: The [place] Diabete s Association (ADA) provides guidance for [...] Standards of Medical Care in Diabetes 2016, [place] [employer]. Diabetes Care. 2016.39(Suppl 1). Potassium [Moles/Vol] 4.8 mmol/L 3.7-5.1 [facility] Sodium [Moles/Vol] 140 mmol/L 136-144 [facility] Urea nitrogen [Mass/Vol] 18 mg/dL 9-24 [facility] Laboratory - Hematology and Cell countson 10-30-2023 Eosinophils (Bld) [#/Vol] 0.35 10*3/uL <0.46 [facility] Immature granulocytes (Bld) [#/Vol] 0.04 10*3/uL <0.10 [facility] Immature granulocytes/100 WBC (Bld) 0.5 % [facility] Leukocytes [#/volume] correc jomar for nucleated erythrocytes in Blood by Automated counon 10-30-2023 WBC corrected for nucl RBC Auto (Bld) [#/Vol] 8.19 k/uL 3.70-11.00 [facility] Lymphocytes Auto (Bld) [#/Vo l]on 10-30-2023 Lymphocytes (Bld) [#/Vol] 1.36 10*3/uL 1.00-4.00 [facility] Lymphocytes/100 WBC Auto (Bl d)on 10-30-2023 Lymphocytes/100 WBC (Bld) 16.6 % [facility] MCH Auto (RBC) [Entitic mass ]on 10-30-2023 MCH (RBC) [Entitic mass] 31.3 pg 26.0-34.0 [facility] MCHC Auto (RBC) [Mass/Vol]on 10-30-2023 MCHC (RBC) [Mass/Vol] 34.1 g/dL 30.5-36.0 [facility] MCV Auto (RBC) [Entitic vol] on 10-30-2023 MCV (RBC) [Entitic vol] 91.8 fL 80.0-100.0 [facility] Monocytes Auto (Bld) [#/Vol] on 10-30-2023 Monocytes (Bld) [#/Vol] 0.62 10*3/uL <0.87 [facility] Monocytes/100 WBC Auto (Bld) on 10-30-2023 Monocytes/100 WBC (Bld) 7.6 % [facility] Neutrophils Auto (Bld) [#/Vo l]on 10-30-2023 Neutrophils (Bld) [#/Vol] 5.78 10*3/uL 1.45-7.50 [facility] Neutrophils/100 WBC Auto (Bl d)on 10-30-2023 Neutrophils/100 WBC (Bld) 70.5 % [facility] No Panel Informationon 10-29 Estimated GFR (CKD-EPI) 89 mL/min/1.73m??? >=60 [facility] Comment on above: Estimated Glomerular [...] GFR. Prostate Specific Antigen 0.16 ng/mL <2.60 [facility] Comment on above: Total PSA test metho dology used is the Electrochemiluminescence Immunoassay by [employer]. Total PSA values by differing methodologies cannot be interchanged. Testosterone Level 78 ng/dL 193-824 [facility] Comment on above: A testosterone level in the 193-320 ng/dL range with associated clinical symptoms is considered low and may indicate hypogonadism (from NEJ 2010 363:123-135). Results >320 ng/dL are considered normal.Result rechecked. Nucleated RBC Auto (Bld) [#/ Vol]on 10-30-2023 Nucleated RBC (Bld) [#/Vol] 10*3/uL <0.01 [facility] Nucleated erythrocytes [Pres ence] in Blood by Automated counton 10-30-2023 Nucleated RBC Auto Ql (Bld) 0.0 /100{WBC} [facility] Platelet mean volume Auto (B ld) [Entitic vol]on 10-30-2023 Platelet mean volume (Bld) [Entitic vol] 9.5 fL 9.0-12.7 [facility] [facility] Platelets Auto (Bld) [#/Vol] on 10-30-2023 Platelets (Bld) [#/Vol] 192 10*3/uL 150-400 [facility] Protein [Mass/volume] in Ser um or Plasmaon 10-30-2023 Protein [Mass/Vol] 6.5 g/dL 6.3-8.0 [facility] RBC Auto (Bld) [#/Vol]on RBC (Bld) [#/Vol] 3.90 10*6/uL 4.20-6.00 [facility] Serum or plasma anion gap de terminationon 10-30-2023 Anion gap [Moles/Vol] 13 mmol/L 9-18 [facility] Patient Educationon 10-20-19 Patient Education [...] under a microscope. This is called the [place] score and the total score can range [...] to normal prostate cells (moderately differentiated). ? [place] 8, 9, or 10: This indicates that [...] external be (more content not included)... Normal [facility] Urology Office/Clinic Noteon 10-20-2023 Urology [...] <0.13 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 [place] 9 (5+4), pT2b, N0, Mo. Last Lupron [...] Contact Information KAEL JAMES, Anthony Lee, URL [address] [place] [address]- Additional Instructions: 6 mos w/ PSA and [...] 1 tab(s), Oral, Daily ipratropium Nasal 0.06% [place] metformin 1000 mg oral tablet, Oral, BID metoprolol 25 mg ER Tab, 25 mg= 1 tab(s), Oral, BID Vitamin D3 Xtandi 80 mg oral tablet, Oral, Daily Allergies penicillin G benzathine (Unknown) Social History Alcohol Current, 1-2 times per year, 02/04/2019 Tobacco Never (less than 100 in lifetime) Tobacco Use:. Never Smokeless Tobacco Use:. (more content not included)... Normal [facility] Comment on above: Result Comment: Elec tronically Signed By: Anthony SCRUGGS MD\.br\Date and Time Signed: 10/20/23 09:57 EDT\.br\Electronically Co-Signed By: Olamide Ureña\.br\Date and Time Co-Signed: 10/20/23 09:55 EDT No Panel Informationon 10-08 Prostate Specific Antigen Total <0.13 ng/mL <=4.00 [facility] No Panel Informationon 08-28 [facility] Healthcare Type of biopsy: schmidt ential Informed [...] [facility] Office Visiton 06-22-2023 Follow-up visit [id number] Pablo Felix Jessica 1945 M Date Provider Department Center 06/22/2023 [facility] Family History Problem Relation Age of Onset Coronary artery disease Father Family Status - Relation Status Age at Father Level of Service:51009 [place] OFFICE/OUTPATIENT ESTABLISHED MOD MDM 30-39 MIN Normal [facility] GLYCOHEMOGLOBIN A1Con 2022 ADA RECOMMENDATION SEE BELOW Normal [facility] Comment on above: Result Comment: ADA RECOMMENDED LIMIT 4.0 - 6.0 ADA THERAPEUTIC TARGET < 7.0 ACTION SUGGESTED > 7.0 Performed By: #### D ATA1C #### [facility] [address] [address] [address] Bharati Aguiar Glucose [Mass/Vol] 131 mg/dL Normal [facility] Comment on above: Performed By: #### D ATA1C #### [facility] [address] [address] [address] Bharati Aguiar HbA1c (Bld) [Mass fraction] 6.2 % Normal 4.5-6.2 [facility] Comment on above: Performed By: #### D ATA1C #### [facility] [address] [place] [address] Dr. Bharati Aguiar XR CSPINE OBL FLEX_EXTon [...] CYNTHIA TORRES Date: 2022-07-21 15:52 Normal [facility] GLYCOHEMOGLOBIN A1Con 2021 ADA RECOMMENDATION SEE BELOW Normal [facility] Comment on above: Result Comment: ADA RECOMMENDED LIMIT 4.0 - 6.0 ADA THERAPEUTIC TARGET < 7.0 ACTION SUGGESTED > 7.0 Performed By: #### D ATA1C #### [facility] [address] [address] [address] Bharati Aguiar Glucose [Mass/Vol] 134 mg/dL Normal [facility] Comment on above: Performed By: #### D ATA1C #### [facility] [address] [address] [address] Bharati Aguiar HbA1c (Bld) [Mass fraction] 6.3 % Critically high 4.5-6.2 [facility] Comment on above: Performed By: #### D ATA1C #### [facility] [address] [address] [address] Bharati Aguiar ECHOCARDIO M/2D COMPLETEon 1 ECHOCARDIO M/2D COMPLETE Patient: PABLO FELIX Exam Date: 04/27/2022 : 1945 Gender:M Ordering : LORA ENGLISH Admission #: [id number] Family : DR JAMAR FALL D.O. Order #: [id number] CLICK HERE TO VIEW EXAM ECHOCARDIOGRAM REPORT [...] Carreon M.D. on 04/28/2022 at 19:09 Normal [facility] GLYCOHEMOGLOBIN A1Con 2021 ADA RECOMMENDATION SEE BELOW Normal [facility] Comment on above: Result Comment: ADA RECOMMENDED LIMIT 4.0 - 6.0 ADA THERAPEUTIC TARGET < 7.0 ACTION SUGGESTED > 7.0 Performed By: #### D ATA1C ####[facility] [id number] [address]Dr. Bharati Aguiar Glucose [Mass/Vol] 137 mg/dL Normal [facility] Comment on above: Performed By: #### D ATA1C ####[facility] [id number] [address]Dr. Bharati Aguiar HbA1c (Bld) [Mass fraction] 6.4 % Critically high 4.5-6.2 [facility] Comment on above: Performed By: #### D ATA1C ####[facility] [id number] [address]Dr. Bharati Aguiar IN BONE SC BODYon 022 IN BONE [facility] BODY WHOLE BODY RADIONUCL [place] BONE SCAN: COMPARISON: CT of the chest, abdomen, and pelvis dated 11/05/2021 HISTORY: Prostate carcinoma TRACER DOSE: 25.0 mCi of technetium-99m MDP. FINDINGS: Fairly prominent tracer uptake is seen at the lesser trochanter of the left hip. This is suspicious for metastasis, although it was not obviously included in the [id number] of the recent CT. There are foci [...] FEDE DE JESUS Date: 2021-11-06 12:[address] [facility] [address] CHEST W CONon 11-05-2021 CT [...] LUIZ UMANA Date: 2021-11-05 14:08 Normal [facility] PROF 14(COMP METB)on 022 Albumin [Mass/Vol] 3.6 g/dL Normal 3.4-5.0 [facility] Comment on above: Performed By: #### C MP #### [facility] [address] [place] [address] Dr. Bharati Aguiar Albumin/Globulin [Mass ratio] 1.1 {ratio} Normal [facility] Comment on above: Performed By: #### C MP #### [facility] [address] [place] [address] Dr. Bharati Aguiar ALP [Catalytic activity/Vol] 89 U/L Normal 46-116 [facility] Comment on above: Performed By: #### C MP #### [facility] [address] [place] [address] Dr. Bharati Aguiar ALT [Catalytic activity/Vol] 33 U/L Normal 16-63 [facility] Comment on above: Performed By: #### C MP #### [facility] [address] [place] [address] Dr. Bharati Aguiar Anion gap [Moles/Vol] 12.1 mmol/L Normal [facility] Comment on above: Performed By: #### C MP #### [facility] [address] [place] [address] Dr. Bharati Aguiar AST [Catalytic activity/Vol] 19 U/L Normal 15-37 [facility] Comment on above: Performed By: #### C MP #### [facility] [address] [place] [address] Dr. Bharati Aguiar Bilirubin [Mass/Vol] 0.9 mg/dL Normal 0.2-1.3 [facility] Comment on above: Performed By: #### C MP #### [facility] [address] [place] [address] Dr. Bharati Aguiar Calcium [Mass/Vol] 8.8 mg/dL Normal 8.5-10.1 [facility] Comment on above: Performed By: #### C MP #### [facility] [address] [address] [address] Bharati Aguiar Chloride [Moles/Vol] 103 mmol/L Normal 98-107 [facility] Comment on above: Performed By: #### C MP #### [facility] [address] [place] [address] Dr. Bharati Aguiar CO2 [Moles/Vol] 28.6 mmol/L Normal 22.0-30.0 [facility] Comment on above: Performed By: #### C MP #### [facility] [address] [place] [address] Dr. Bharati Aguiar Creatinine [Mass/Vol] 0.85 mg/dL Normal 0.66-1.25 [facility] Comment on above: Performed By: #### C MP #### [facility] [address] [place] [address] Dr. Bharati Aguiar EGFR-AF QATARI >60 Normal >=60 [facility] Comment on above: Performed By: #### C MP #### [facility] [address] [place] [address] Dr. Bharati Aguiar EGFR-NON AF QATARI >60 Normal >=60 [facility] Comment on above: Performed By: #### C MP #### [facility] [address] [address] [address] Bharati Aguiar Globulin (S) [Mass/Vol] 3.4 g/dL Normal [facility] Comment on above: Performed By: #### C MP #### [facility] [address] [place] [address] Dr. Bharati Aguiar Glucose [Mass/Vol] 127 mg/dL Critically high 74-106 [facility] Comment on above: Performed By: #### C MP #### [facility] [address] [address] [address] Bharati Aguiar Potassium [Moles/Vol] 4.7 mmol/L Normal 3.4-5.0 [facility] Comment on above: Performed By: #### C MP #### [facility] [address] [address] [address] Bharati Aguiar Protein [Mass/Vol] 7.0 g/dL Normal 6.1-8.2 [facility] Comment on above: Performed By: #### C MP #### [facility] [address] [address] [address] Bharati Aguiar Sodium [Moles/Vol] 139 mmol/L Normal 137-145 [facility] Comment on above: Performed By: #### C MP #### [facility] [address] [address] [address] Bharati Aguiar Urea nitrogen [Mass/Vol] 18.0 mg/dL Normal 7.0-18.0 [facility] Comment on above: Performed By: #### C MP #### [facility] [address] [address] [address] Bharati Aguiar Urea nitrogen/Creatinin e [Mass ratio] 21.2 mg/mg Normal [facility] Comment on above: Performed By: #### C MP #### [facility] [address] [address] [address] Bharati Aguiar Vital Signs Date Time Vital Sign Value Performing Clinician Facility 09-02-2024 09:44-0500 Body height 168.91 cm [facility] 09-02-2024 09:44-0500 Body mass index (BMI) [Ratio] 32.4 kg/m2 [facility] 09-02-2024 09:44-0500 Body weight 92.53 kg [facility] 09-02-2024 09:44-0500 Diastolic blood pressure 80 mm[Hg] [facility] 09-02-2024 09:44-0500 Heart rate 46 /min [facility] 09-02-2024 09:44-0500 Respiratory rate 12 /min [facility] 09-02-2024 09:44-0500 Systolic blood pressure 130 mm[Hg] [facility] 08-08-2024 09:07-0500 Body height 167.6 cm Christo Howard APRN.[employer] Work Phone: [facility] 08-08-2024 09:07-0500 Body mass index (BMI) [Ratio] 33.82 kg/m2 Christo Howard APRN.[employer] Work Phone: [facility] 08-08-2024 09:07-0500 Body temperature 97.9 [degF] Christo Howard APRN.[employer] Work Phone: [facility] 08-08-2024 09:07-0500 Body weight 95 kg Christo Howard APRN.[employer] Work Phone: [facility] 08-08-2024 09:07-0500 Diastolic blood pressure 56 mm[Hg] Christo Howard APRN.[employer] Work Phone: [facility] 08-08-2024 09:07-0500 Heart rate 57 /min Christo Howard APRN.[employer] Work Phone: [facility] 08-08-2024 09:07-0500 Respiratory rate 16 /min Christo Howard APRN.[employer] Work Phone: [facility] 08-08-2024 09:07-0500 SaO2% (BldA) [Mass fraction] 99 % Christo Howard APRN.[employer] Work Phone: [facility] 08-08-2024 09:07-0500 Systolic blood pressure 149 mm[Hg] Christo Howard APRN.[employer] Work Phone: [facility] 06-10-2024 14:25-0500 Body height 168.91 cm [facility] 06-10-2024 14:25-0500 Body mass index (BMI) [Ratio] 32.8 kg/m2 [facility] 06-10-2024 14:25-0500 Body weight 93.55 kg [facility] 06-10-2024 14:25-0500 Diastolic blood pressure 79 mm[Hg] [facility] 06-10-2024 14:25-0500 Heart rate 61 /min [facility] 06-10-2024 14:25-0500 Respiratory rate 12 /min [facility] 06-10-2024 14:25-0500 Systolic blood pressure 153 mm[Hg] [facility] 05-09-2024 08:52-0400 Body mass index (BMI) [Ratio] 32.79 kg/m2 Marco A Esqueda MD Work Phone: [facility] 05-09-2024 08:52-0400 Body temperature 97.3 [degF] Marco A Esqueda MD Work Phone: [facility] 05-09-2024 08:52-0400 Body weight 92.1 kg Marco A Esqueda MD Work Phone: [facility] 05-09-2024 08:52-0400 Diastolic blood pressure 62 mm[Hg] Marco A Esqueda MD Work Phone: [facility] 05-09-2024 08:52-0400 Heart rate 62 /min Marco A Esqueda MD Work Phone: [facility] 05-09-2024 08:52-0400 Respiratory rate 16 /min Marco A Esqueda MD Work Phone: [facility] 05-09-2024 08:52-0400 SaO2% (BldA) [Mass fraction] 99 % Marco A Esqueda MD Work Phone: [facility] 05-09-2024 08:52-0400 Systolic blood pressure 141 mm[Hg] Marco A Esqueda MD Work Phone: [facility] 04-19-2024 08:15-0400 Blood Pressure Location Anthony SCRUGGS [facility] 04-19-2024 08:15-0400 Body temperature 98.6 [degF] Anthony SCRUGGS [facility] 04-19-2024 08:15-0400 Diastolic blood pressure 69 mm[Hg] Anthony SCRUGGS [facility] 04-19-2024 08:15-0400 Heart rate 64 /min Anthony SCRUGGS [facility] 04-19-2024 08:15-0400 Respiratory rate 17 /min Anthony SCRUGGS [facility] 04-19-2024 08:15-0400 Systolic blood pressure 129 mm[Hg] nAthony SCRUGGS [facility] 03-26-2024 08:37-0400 Body height 168.91 cm [facility] 03-26-2024 08:37-0400 Body mass index (BMI) [Ratio] 33 kg/m2 [facility] 03-26-2024 08:37-0400 Body weight 94.12 kg [facility] 03-26-2024 08:37-0400 Diastolic blood pressure 80 mm[Hg] [facility] 03-26-2024 08:37-0400 Heart rate 52 /min [facility] 03-26-2024 08:37-0400 Respiratory rate 12 /min [facility] 03-26-2024 08:37-0400 Systolic blood pressure 130 mm[Hg] [facility] 02-02-2024 11:06-0400 Body height 167.6 cm Lynne Rajan APRN.[employer]NER Work Phone: [facility] 02-02-2024 11:06-0400 Body mass index (BMI) [Ratio] 33.36 kg/m2 Lynne Rajan APRN.[employer]NER Work Phone: [facility] 02-02-2024 11:06-0400 Body temperature 97.3 [degF] Lynne Rajan APRN.[employer] Work Phone: [facility] 02-02-2024 11:06-0400 Body weight 93.7 kg Lynne Gross EXECUTIVE SECRETARY.[employer] Work Phone: [facility] 02-02-2024 11:06-0400 Diastolic blood pressure 54 mm[Hg] Lynne Rajan EXECUTIVE SECRETARY.[employer]NER Work Phone: [facility] 02-02-2024 11:06-0400 Heart rate 52 /min Lynne Rajan APRN.[employer] Work Phone: [facility] 02-02-2024 11:06-0400 Respiratory rate 16 /min Lynne Rajan EXECUTIVE SECRETARY.[employer]NER Work Phone: [facility] 02-02-2024 11:06-0400 SaO2% (BldA) [Mass fraction] 98 % Lynne Rajan EXECUTIVE SECRETARY.[employer] Work Phone: [facility] 02-02-2024 11:06-0400 Systolic blood pressure 137 mm[Hg] Lynne Rajan EXECUTIVE SECRETARY.[employer]NER Work Phone: [facility] 11-23-2023 08:38-0400 Body height 168.91 cm [facility] 11-23-2023 08:38-0400 Body mass index (BMI) [Ratio] 33.2 kg/m2 [facility] 11-23-2023 08:38-0400 Body weight 94.8 kg [facility] 11-23-2023 08:38-0400 Diastolic blood pressure 69 mm[Hg] [facility] 11-23-2023 08:38-0400 Heart rate 48 /min [facility] 11-23-2023 08:38-0400 Respiratory rate 12 /min [facility] 11-23-2023 08:38-0400 Systolic blood pressure 130 mm[Hg] [facility] 11-02-2023 09:14-0400 Body height 167.6 cm Christo Howard APRN.[employer]NER Work Phone: [facility] 11-02-2023 09:14-0400 Body temperature 97.81 [degF] Christo Howard APRN.[employer]NER Work Phone: [facility] 11-02-2023 09:14-0400 Body weight 92.9 kg Christo Howard APRN.[employer]NER Work Phone: [facility] 11-02-2023 09:14-0400 Diastolic blood pressure 44 mm[Hg] Christo Howard APRN.[employer]NER Work Phone: [facility] 11-02-2023 09:14-0400 Heart rate 56 /min Christo Howard APRN.[employer]NER Work Phone: [facility] 11-02-2023 09:14-0400 Respiratory rate 16 /min Christo Howard APRN.[employer]NER Work Phone: [facility] 11-02-2023 09:14-0400 SaO2% (BldA) [Mass fraction] 97 % Christo Howard APRN.[employer]NER Work Phone: [facility] 11-02-2023 09:14-0400 Systolic blood pressure 123 mm[Hg] Christo Howard APRN.[employer]NER Work Phone: [facility] 10-20-2023 09:05-0400 Blood Pressure Location Anthony SCRUGGS [facility] 10-20-2023 09:05-0400 Diastolic blood pressure 64 mm[Hg] Anthony SCRUGGS [facility] 10-20-2023 09:05-0400 Heart rate 53 /min Anthony SCRUGGS [facility] 10-20-2023 09:05-0400 Respiratory rate 16 /min Anthony SCRUGGS [facility] 10-20-2023 09:05-0400 Systolic blood pressure 110 mm[Hg] Anthony SCRUGGS [facility] 09-12-2023 14:13-0500 Body height 168.91 cm [facility] 09-12-2023 14:13-0500 Body mass index (BMI) [Ratio] 33.4 kg/m2 [facility] 09-12-2023 14:13-0500 Body weight 95.42 kg [facility] 09-12-2023 14:13-0500 Diastolic blood pressure 84 mm[Hg] [facility] 09-12-2023 14:13-0500 Heart rate 56 /min [facility] 09-12-2023 14:13-0500 Respiratory rate 12 /min [facility] 09-12-2023 14:13-0500 Systolic blood pressure 143 mm[Hg] [facility] 08-24-2023 08:30-0500 Body height 168.91 cm Jamar Ball Other [facility] [employer] Other 08-24-2023 08:30-0500 Body mass index (BMI) [Ratio] 34.08 kg/m2 Jamar Ball Other [facility] [employer] Other 08-24-2023 08:30-0500 Body weight 97.25 kg Jamar Ball Other [facility] [employer] Other 08-24-2023 08:30-0500 Diastolic blood pressure 81 mm[Hg] Jamar Ball Other [facility] [employer] Other 08-24-2023 08:30-0500 Respiratory rate 12 /min Jamar Ball Other [facility] [employer] Other 08-24-2023 08:30-0500 Systolic blood pressure 125 mm[Hg] Jamar Ball Other [facility] [employer] Other 05-30-2023 15:00-0500 Body height 168.91 cm Jamar Ball Other [facility] [employer] Other 05-30-2023 15:00-0500 Body mass index (BMI) [Ratio] 32.84 kg/m2 Jamar Ball Other [employer] Other 05-30-2023 15:00-0500 Body weight 93.71 kg Jamar Ball Other [employer] Other 05-30-2023 15:00-0500 Diastolic blood pressure 66 mm[Hg] Jamar Ball Other [employer] Other 05-30-2023 15:00-0500 Respiratory rate 12 /min Jamar Ball Other [employer] Other 05-30-2023 15:00-0500 Systolic blood pressure 141 mm[Hg] Jamar Ball Other [employer] Other 05-01-2023 09:45-0400 Body height 168.91 cm Jamar Ball Other [employer] Other 05-01-2023 09:45-0400 Body mass index (BMI) [Ratio] 32.14 kg/m2 Jamar Ball Other [employer] Other 05-01-2023 09:45-0400 Body weight 91.72 kg Jamar Ball Other [employer] Other 05-01-2023 09:45-0400 Diastolic blood pressure 62 mm[Hg] Jamar Ball Other [employer] Other 05-01-2023 09:45-0400 Respiratory rate 12 /min Jamar Ball Other [employer] Other 05-01-2023 09:45-0400 Systolic blood pressure 129 mm[Hg] Jamar Ball Other [employer] Other 04-27-2023 09:23-0400 Diastolic blood pressure 49 mm[Hg] Christo Howard APRN.[employer]NER Work Phone: [facility] 04-27-2023 09:23-0400 Heart rate 50 /min Christo Howard APRN.[employer]NER Work Phone: [facility] 04-27-2023 09:23-0400 Systolic blood pressure 141 mm[Hg] Christo Howard EXECUTIVE SECRETARY.[employer]NER Work Phone: [facility] 04-27-2023 09:20-0400 Body height 167.6 cm Christo Howard APRN.[employer]NER Work Phone: [facility] 04-27-2023 09:20-0400 Body temperature 97 [degF] Christo Howard APRN.[employer]NER Work Phone: [facility] 04-27-2023 09:20-0400 Body weight 92.53 kg Christo Howard APRN.[employer]NER Work Phone: [facility] 04-27-2023 09:20-0400 Respiratory rate 16 /min Christo Howard APRN.[employer]NER Work Phone: [facility] 04-27-2023 09:20-0400 SaO2% (BldA) [Mass fraction] 100 % Christo Howard APRN.[employer]NER Work Phone: [facility] 04-17-2023 08:45-0400 Blood Pressure Location Anthony SCRUGGS [facility] 04-17-2023 08:45-0400 Diastolic blood pressure 68 mm[Hg] Anthony SCRUGGS [facility] 04-17-2023 08:45-0400 Heart rate 62 /min Anthony SCRUGGS [facility] 04-17-2023 08:45-0400 Respiratory rate 16 /min Anthony SCRUGGS [facility] 04-17-2023 08:45-0400 Systolic blood pressure 130 mm[Hg] Anthony SCRUGGS [facility] 04-05-2023 13:45-0400 Body height 168.91 cm Jamar Ball Other [employer] Other 04-05-2023 13:45-0400 Body mass index (BMI) [Ratio] 32.46 kg/m2 Jamar Ball Other [employer] Other 04-05-2023 13:45-0400 Body weight 92.63 kg Jamar Ball Other [employer] Other 04-05-2023 13:45-0400 Diastolic blood pressure 67 mm[Hg] Jamar Ball Other [employer] Other 04-05-2023 13:45-0400 Respiratory rate 12 /min Jamar Ball Other [employer] Other 04-05-2023 13:45-0400 Systolic blood pressure 109 mm[Hg] Jamar Ball Other [employer] Other 03-15-2023 08:45-0400 Body height 168.91 cm Jamar Ball Other [employer] Other 03-15-2023 08:45-0400 Body mass index (BMI) [Ratio] 32.81 kg/m2 Jamar Ball Other [employer] Other 03-15-2023 08:45-0400 Body weight 93.62 kg Jamar Ball Other [employer] Other 03-15-2023 08:45-0400 Diastolic blood pressure 69 mm[Hg] Jamar Ball Other [employer] Other 03-15-2023 08:45-0400 Respiratory rate 12 /min Jamar Ball Other [facility] [employer] Other 03-15-2023 08:45-0400 Systolic blood pressure 131 mm[Hg] Jamar Fall Other [employer] Other 02-02-2023 09:32-0400 Body height 167.6 cm Marco A Esqueda MD Work Phone: [facility] 02-02-2023 09:32-0400 Body temperature 97.2 [degF] Marco A Esqueda MD Work Phone: [facility] 02-02-2023 09:32-0400 Body weight 96.62 kg Marco A Esqueda MD Work Phone: [facility] 02-02-2023 09:32-0400 Diastolic blood pressure 43 mm[Hg] Marco A Esqueda MD Work Phone: [facility] 02-02-2023 09:32-0400 Heart rate 50 /min Marco A Esuqeda MD Work Phone: [facility] 02-02-2023 09:32-0400 Respiratory rate 16 /min Marco A Esqueda MD Work Phone: [facility] 02-02-2023 09:32-0400 SaO2% (BldA) [Mass fraction] 97 % Marco A Esqueda MD Work Phone: [facility] 02-02-2023 09:32-0400 Systolic blood pressure 131 mm[Hg] Marco A Esqueda MD Work Phone: [facility] 11-10-2022 09:30-0400 Body height 167.6 cm Christo Howard APRN.[employer]NER Work Phone: [facility] 11-10-2022 09:30-0400 Body temperature 97.11 [degF] Christo Howard EXECUTIVE SECRETARY.[employer]NER Work Phone: [facility] 11-10-2022 09:30-0400 Body weight 96.44 kg Christo Howard APRN.[employer] PL[employer]NER Work Phone: [facility] 11-10-2022 09:30-0400 Diastolic blood pressure 68 mm[Hg] Christo Howard APRN.[employer] PLANNER Work Phone: [facility] 11-10-2022 09:30-0400 Heart rate 54 /min Christo Howard APRN.[employer] PL[employer]NER Work Phone: [facility] 11-10-2022 09:30-0400 Respiratory rate 16 /min Christo Howard APRN.[employer] PL[employer]NER Work Phone: [facility] 11-10-2022 09:30-0400 SaO2% (BldA) [Mass fraction] 98 % Christo Howard EXECUTIVE SECRETARY.[employer] SUPPORT PLANNER Work Phone: [facility] 11-10-2022 09:30-0400 Systolic blood pressure 134 mm[Hg] Christo Howard APRN.[employer]PPORT PLANNER Work Phone: [facility] 09-16-2022 08:30-0500 Body height 168.91 cm Jamar Ball Other [employer] Other 09-16-2022 08:30-0500 Body mass index (BMI) [Ratio] 33.16 kg/m2 Jamar Ball Other [employer] Other 09-16-2022 08:30-0500 Body weight 94.62 kg Jamar Ball Other [facility] Other 09-16-2022 08:30-0500 Diastolic blood pressure 78 mm[Hg] Jamar Ball Other [facility] Other 09-16-2022 08:30-0500 Respiratory rate 12 /min Jamar Ball Other [facility] Other 09-16-2022 08:30-0500 Systolic blood pressure 116 mm[Hg] Jamar Ball Other [facility] Other 09-09-2022 08:30-0500 Body height 168.91 cm Jamar Ball Other [facility] Other 09-09-2022 08:30-0500 Body mass index (BMI) [Ratio] 33.45 kg/m2 Jamar Ball Other [facility] Other 09-09-2022 08:30-0500 Body weight 95.44 kg Jamar Ball Other [facility] Other 09-09-2022 08:30-0500 Diastolic blood pressure 76 mm[Hg] Jamar Ball Other [facility] Other 09-09-2022 08:30-0500 Respiratory rate 12 /min Jamar Ball Other [facility] Other 09-09-2022 08:30-0500 Systolic blood pressure 118 mm[Hg] Jamar Ball Other [facility] Other 09-09-2022 07:30-0500 Body height 168.91 cm Jamar Ball Other [facility] Other 09-09-2022 07:30-0500 Body mass index (BMI) [Ratio] 33.45 kg/m2 Jamar Ball Other [facility] Other 09-09-2022 07:30-0500 Body weight 95.44 kg Jamar Ball Other [facility] Other 09-09-2022 07:30-0500 Diastolic blood pressure 76 mm[Hg] Jamar Ball Other [employer] Other 09-09-2022 07:30-0500 Respiratory rate 12 /min Jamar Ball Other [facility] Other 09-09-2022 07:30-0500 Systolic blood pressure 118 mm[Hg] Jamar Juan David Other [employer] Other 08-11-2022 09:24-0500 Body height 167.6 cm Marco A Esqueda MD Work Phone: [facility] 08-11-2022 09:24-0500 Body temperature 97 [degF] Marco A Esqueda MD Work Phone: [facility] 08-11-2022 09:24-0500 Body weight 96.44 kg Marco A Esqueda MD Work Phone: [facility] 08-11-2022 09:24-0500 Diastolic blood pressure 56 mm[Hg] Marco A Esqueda MD Work Phone: [facility] 08-11-2022 09:24-0500 Heart rate 53 /min Marco A Esqueda MD Work Phone: [facility] 08-11-2022 09:24-0500 Respiratory rate 16 /min Marco A Esqueda MD Work Phone: [facility] 08-11-2022 09:24-0500 SaO2% (BldA) [Mass fraction] 97 % Marco A Esqueda MD Work Phone: [facility] 08-11-2022 09:24-0500 Systolic blood pressure 129 mm[Hg] Marco A Esuqeda MD Work Phone: [facility] 07-21-2022 15:30-0500 Body height 168.91 cm Jamar Ball Other [employer] Other 07-21-2022 15:30-0500 Body mass index (BMI) [Ratio] 34.18 kg/m2 Jamar Ball Other [employer] Other 07-21-2022 15:30-0500 Body weight 97.52 kg Jamar Ball Other [employer] Other 07-21-2022 15:30-0500 Diastolic blood pressure 76 mm[Hg] Jamar Ball Other [facility] [employer] Other 07-21-2022 15:30-0500 Respiratory rate 16 /min Jamar Ball Other [facility] [employer] Other 07-21-2022 15:30-0500 Systolic blood pressure 118 mm[Hg] Jamar Ball Other [facility] [employer] Other 05-13-2022 09:07-0400 Blood Pressure Location Anthony SCRUGGS [facility] 05-13-2022 09:07-0400 Diastolic blood pressure 72 mm[Hg] Anthony SCRUGGS [facility] 05-13-2022 09:07-0400 Heart rate 55 /min Anthony SCRUGGS [facility] 05-13-2022 09:07-0400 Respiratory rate 16 /min Anthony SCRUGGS [facility] 05-13-2022 09:07-0400 Systolic blood pressure 108 mm[Hg] Anthony SCRUGGS [facility] 05-12-2022 10:41-0400 Body temperature 97.81 [degF] LUAN Khan MD Work Phone: [facility] 05-12-2022 10:41-0400 Body weight 95.07 kg LUAN Khan MD Work Phone: [facility] 05-12-2022 10:41-0400 Diastolic blood pressure 42 mm[Hg] LUAN Khan MD Work Phone: [facility] 05-12-2022 10:41-0400 Heart rate 51 /min LUAN Khan MD Work Phone: [facility] 05-12-2022 10:41-0400 Respiratory rate 18 /min LUAN Khan MD Work Phone: [facility] 05-12-2022 10:41-0400 SaO2% (BldA) [Mass fraction] 99 % LUAN Khan MD Work Phone: [facility] 05-12-2022 10:41-0400 Systolic blood pressure 134 mm[Hg] LUAN Khan MD Work Phone: [facility] 02-17-2022 09:36-0400 Body height 167.6 cm Marco A Esqueda MD Work Phone: [facility] 02-17-2022 09:36-0400 Body temperature 97.9 [degF] Marco A Esqueda MD Work Phone: [facility] 02-17-2022 09:36-0400 Body weight 97.07 kg Marco A Esqueda MD Work Phone: [facility] 02-17-2022 09:36-0400 Diastolic blood pressure 58 mm[Hg] Marco A Esqueda MD Work Phone: [facility] 02-17-2022 09:36-0400 Heart rate 63 /min Marco A Esqueda MD Work Phone: [facility] 02-17-2022 09:36-0400 Respiratory rate 16 /min Marco A Esqueda MD Work Phone: [facility] 02-17-2022 09:36-0400 SaO2% (BldA) [Mass fraction] 99 % Marco A Esqueda MD Work Phone: [facility] 02-17-2022 09:36-0400 Systolic blood pressure 133 mm[Hg] Marco A Esqueda MD Work Phone: [facility] 11-18-2021 10:50-0400 Body temperature 97.7 [degF] [facility] Work Phone: [facility] 11-18-2021 10:50-0400 Diastolic blood pressure 63 mm[Hg] [facility] Work Phone: [facility] 11-18-2021 10:50-0400 Heart rate 60 /min [facility] Work Phone: [facility] 11-18-2021 10:50-0400 Respiratory rate 18 /min [facility] Work Phone: [facility] 11-18-2021 10:50-0400 SaO2% (BldA) [Mass fraction] 95 % [facility] Work Phone: [facility] 11-18-2021 10:50-0400 Systolic blood pressure 139 mm[Hg] [facility] Work Phone: [facility] 11-11-2021 13:58-0400 Body height 167.6 cm Marco A Esqueda MD Work Phone: [facility] 11-11-2021 13:58-0400 Body temperature 97.39 [degF] Marco A Esqueda MD Work Phone: [facility] 11-11-2021 13:58-0400 Body weight 98.97 kg Marco A Esqueda MD Work Phone: [facility] 11-11-2021 13:58-0400 Diastolic blood pressure 54 mm[Hg] Marco A Esqueda MD Work Phone: [facility] 11-11-2021 13:58-0400 Heart rate 68 /min Marco A sEqueda MD Work Phone: [facility] 11-11-2021 13:58-0400 Respiratory rate 16 /min Marco A Esqueda MD Work Phone: [facility] 11-11-2021 13:58-0400 SaO2% (BldA) [Mass fraction] 98 % Marco A Esqueda MD Work Phone: [facility] 11-11-2021 13:58-0400 Systolic blood pressure 130 mm[Hg] Marco A Esqueda MD Work Phone: [facility] 11-08-2021 13:03-0400 Blood Pressure Location Anthonycindy SCRUGGS [facility] 11-08-2021 13:03-0400 Diastolic blood pressure 60 mm[Hg] Anthony KAEL [facility] 11-08-2021 13:03-0400 Heart rate 61 /min Anthony SCRUGGS [facility] 11-08-2021 13:03-0400 Systolic blood pressure 135 mm[Hg] Anthony KAEL [facility] Encounters Encounter Date Encounter Type Care Provider Facility Start: 03-31-2025 ambulatory Anthony Bloomi ty:[facility] Start: 2025 End: 2025 ambulatory JAMAR FALL Facility:[facility] Start: 11-07-2024 End: 11-07-2024 ambulatory JAMAR FALL Facility:[facility] Start: 10-31-2024 End: 10-31-2024 ambulatory JAMAR FALL Facility:[facility] Start: 10-21-2024 End: 10-21-2024 ambulatory Nicole Herrera MD Facility:[facility] Start: 10-07-2024 End: 10-07-2024 ambulatory Anthony SCRUGGS Facility:[facility] Start: 10-07-2024 End: 10-07-2024 ambulatory Nicole Herrera MD Facility:[facility] Start: 09-02-2024 End: 09-02-2024 ambulatory [facility] Work Phone: Start: 09-02-2024 End: 09-02-2024 Patient encounter procedure [facility] Work Phone: Start: 08-30-2024 Patient encounter procedure [facility] Start: 08-08-2024 End: 08-08-2024 ambulatory [facility] Work Phone: Hematology/Oncology Comment on above: Malignant neoplasm o f prostate (HCC) (Primary Dx) Malignant neoplasm o f prostate (HCC) (Primary Dx); Essential hypertension; 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 pectoris, unspecified vessel or lesion type; Type 2 diabetes mellitus without complication, without long-term current use of insulin (HCC) Start: 08-08-2024 End: 08-08-2024 Patient encounter procedure Christo Howard APRN.[employer] PLANNER Work Phone: Hematology/Oncology Start: 08-01-2024 End: 08-01-2024 ambulatory JAMAR FALL Facility:[facility] Start: 08-01-2024 Non-patient / Non-visit [facility] Work Phone: Start: 07-25-2024 End: 10-16-2024 Telephone encounter Marco A Esqueda MD Work Phone: [facility] Comment on above: Lab Orders Start: 06-10-2024 End: 06-10-2024 Patient encounter procedure [facility] Work Phone: Start: 05-09-2024 End: 05-09-2024 ambulatory [facility] Work Phone: Hematology/Oncology Comment on above: Malignant neoplasm o f prostate (HCC) (Primary Dx) Start: 05-09-2024 End: 05-09-2024 Patient encounter procedure Marco A Esqueda MD Work Phone: Hematology/Oncology Start: 05-08-2024 End: 05-08-2024 Refill Aida Luo [facility] Work Phone: [facility] Comment on above: Refill Request Start: 05-03-2024 End: 05-03-2024 ambulatory JAMAR FALL Facility:[facility] Start: 04-19-2024 End: 04-19-2024 ambulatory Anthony SCRUGGS Facility:[facility] Start: 04-19-2024 End: 04-19-2024 Patient encounter procedure Anthony Lee KAEL [facility] Start: 04-01-2024 End: 04-01-2024 Refill Marco A Esqueda MD Work Phone: Hematology/Oncology Comment on above: Refill Request Start: 04-01-2024 End: 04-01-2024 Refill Aidaдмитрий Luo [facility] Work Phone: [facility] Comment on above: Refill Request Start: 03-29-2024 Encounter for preprocedural cardiovascular examination [facility] Start: 03-29-2024 End: 04-01-2024 ambulatory [facility] Start: 03-29-2024 End: 04-01-2024 Encounter for other preprocedural examination [facility] Start: 03-29-2024 End: 04-01-2024 Encounter for preprocedural cardiovascular examination [facility] Start: 03-26-2024 End: 03-26-2024 ambulatory [facility] Work Phone: Start: 03-26-2024 End: 03-26-2024 Patient encounter procedure [facility] Work Phone: Start: 02-29-2024 End: 02-29-2024 ambulatory ALEXIA FRANCO Not Available Start: 02-26-2024 End: 02-26-2024 ambulatory LONG BOO Not Available Start: 02-02-2024 End: 02-02-2024 ambulatory [facility] Work Phone: Hematology/Oncology Comment on above: Malignant neoplasm o f prostate (HCC) (Primary Dx) Start: 02-02-2024 End: 02-02-2024 Patient encounter procedure Lynne Rajan APRN.[employer] SUPPORT PLANNER Work Phone: Hematology/Oncology Comment on above: Malignant neoplasm o f prostate (HCC) (Primary Dx) Start: 01-25-2024 Non-patient / Non-visit [facility] Work Phone: Start: 11-23-2023 End: 11-23-2023 ambulatory [facility] Work Phone: Start: 11-23-2023 End: 11-23-2023 Patient encounter procedure [facility] Work Phone: Start: 11-02-2023 End: 11-02-2023 ambulatory [facility] Work Phone: Hematology/Oncology Comment on above: Malignant neoplasm o f prostate (HCC) (Primary Dx) Malignant neoplasm o f prostate (HCC) (Primary Dx); Essential hypertension; 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 pectoris, unspecified vessel or lesion type; Type 2 diabetes mellitus without complication, without long-term current use of insulin (HCC); Lesion of skin of right ear; Abdominal discomfort Start: 11-02-2023 End: 11-02-2023 Patient encounter procedure Christo Howard APRN.[employer] SUPPORT PLANNER Work Phone: [facility] Start: 10-30-2023 Non-patient / Non-visit [facility] Work Phone: Start: 10-20-2023 End: 10-20-2023 ambulatory Anthony SCRUGGS Facility:[facility] Start: 10-20-2023 End: 10-20-2023 Patient encounter procedure Anthony SCRUGGS [facility] Start: 10-09-2023 Non-patient / Non-visit [facility] Work Phone: Start: 09-28-2023 End: 09-28-2023 ambulatory PABLO CHRISTINA Not Available Start: 09-12-2023 End: 09-12-2023 Patient encounter procedure [facility] Work Phone: Start: 09-06-2023 Non-patient / Non-visit [facility] Work Phone: Start: 08-28-[address] 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 Work Phone: [facility] Start: 08-28-[address] 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 Work Phone: [facility] Start: 08-28-2023 End: 08-28-2023 Patient encounter procedure Long Juárezer 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 Work Phone: [facility] Comment on above: Neoplasm of unspecif ied behavior of bone, soft tissue, and skin; Actinic keratosis Start: 08-28-2023 End: 08-28-2023 ambulatory LONG JUÁREZER Not Available Start: 08-24-2023 End: 08-24-2023 ambulatory Jamar Fall Other [facility] Other Start: 08-24-2023 Patient encounter procedure Jamar Fall [facility] Start: 08-04-2023 End: 08-04-2023 ambulatory Jamar Fall Other [facility] Other Start: 08-04-2023 Telephone encounter Jamar EDMONDS [facility] Start: 06-22-2023 End: 06-22-2023 ambulatory [facility] Start: 06-05-2023 Telephone encounter Jamar EDMONDS [facility] Start: 06-05-2023 End: 06-05-2023 ambulatory EMELINA Craig [facility] [employer] Other Start: 05-30-2023 End: 05-30-2023 ambulatory Jamar Fall Other [employer] Other Start: 05-30-2023 Office outpatient vi sit 15 minutes Jamar Fall [facility] Start: 05-01-2023 End: 05-01-2023 ambulatory Jamar Fall Other [employer] Other Start: 05-01-2023 Office outpatient vi sit 15 minutes Jamar Fall [facility] Start: 04-27-2023 Telephone encounter Jamar EDMONDS [facility] Start: 04-27-2023 End: 04-27-2023 ambulatory [facility] Work Phone: Hematology/Oncology Comment on above: Malignant neoplasm o f prostate (HCC) (Primary Dx) Malignant neoplasm o f prostate (HCC) (Primary Dx); 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 pectoris, unspecified vessel or lesion type; Essential hypertension; Type 2 diabetes mellitus without complication, without long-term current use of insulin (HCC) Start: 04-27-2023 End: 04-27-2023 Patient encounter procedure Christo Howard APRN.CNP Work Phone: [facility] Start: 04-25-2023 End: 04-25-2023 ambulatory Jamar Fall Other [employer] Other Start: 04-25-2023 Telephone encounter Jamar EDMONDS [facility] Start: 04-18-2023 End: 04-18-2023 ambulatory Jamar Fall Other [employer] Other Start: 04-18-2023 Telephone encounter Jamar EDMONDS [facility] Start: 04-17-2023 End: 04-17-2023 Patient encounter procedure Anthony SCRUGGS [facility] Start: 04-12-2023 End: 04-12-2023 ambulatory Jamar Fall Other [employer] Other Start: 04-12-2023 Telephone encounter Jamar EDMONDS [facility] Start: 04-06-2023 End: 04-06-2023 ambulatory Jamar Fall Other [employer] Other Start: 04-06-2023 Telephone encounter Jamar EDMONDS [facility] Start: 04-05-2023 End: 04-05-2023 ambulatory Jamar Fall Other [employer] Other Start: 04-05-2023 Office outpatient vi sit 15 minutes Jamar Fall [facility] Start: 04-05-2023 Telephone encounter Jamar EDMONDS [facility] Start: 03-15-2023 End: 03-15-2023 ambulatory Jamar Fall Other [employer] Other Start: 03-15-2023 Office outpatient vi sit 25 minutes Jamar Fall [facility] Start: 02-05-2023 End: 02-05-2023 ambulatory Jamar Fall Other [employer] Other Start: 02-05-2023 Telephone encounter Jamar EDMONDS [facility] Start: 02-02-2023 End: 02-02-2023 ambulatory [facility] Work Phone: Hematology/Oncology Comment on above: Malignant neoplasm o f prostate (HCC) (Primary Dx) Start: 02-02-2023 End: 02-02-2023 Patient encounter procedure Marco A Esqueda MD Work Phone: [facility] Start: 11-15-2022 End: 11-15-2022 ambulatory Jamar Fall Other [employer] Other Start: 11-15-2022 Encounter by [employer] Jamra Fall [facility] Start: 11-11-2022 End: 11-11-2022 ambulatory Jamar Fall Other [employer] Other Start: 11-11-2022 Encounter by [employer] Jamar Fall [facility] Start: 11-10-2022 End: 11-10-2022 ambulatory [facility] Work Phone: Hematology/Oncology Comment on above: Malignant neoplasm o f prostate (HCC) (Primary Dx) Malignant neoplasm o f prostate (HCC) (Primary Dx); 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 pectoris, unspecified vessel or lesion type; Essential hypertension; Type 2 diabetes mellitus without complication, without long-term current use of insulin (HCC) Start: 11-10-2022 End: 11-10-2022 Patient encounter procedure Christo Howard APRN.CNP Work Phone: [facility] Start: 10-25-2022 End: 10-26-[address] ANTHONY SCRUGGS . Facility: Start: 09-16-2022 End: 09-16-2022 ambulatory Jamar Fall Other [employer] Other Start: 09-16-2022 Office outpatient vi sit 15 minutes Jamar Fall [facility] Start: 09-09-2022 End: 09-09-2022 ambulatory Jamar Fall Other [employer] Other Start: 09-09-2022 Patient encounter procedure Jamar Fall [facility] Start: 09-05-2022 End: 09-06-2022 ambulatory NONE LISTED REQUEST Facility: Start: 08-11-2022 End: 08-11-2022 ambulatory [facility] Work Phone: Hematology/Oncology Comment on above: Malignant neoplasm o f prostate (HCC) (Primary Dx) Malignant neoplasm o f prostate (HCC) (Primary Dx); Bone metastasis (HCC); 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 pectoris, unspecified vessel or lesion type; Essential hypertension; Type 2 diabetes mellitus without complication, without long-term current use of insulin (HCC) Start: 08-11-2022 End: 08-11-2022 Patient encounter procedure Marco A Esqueda MD Work Phone: [facility] Start: 07-21-2022 End: 07-22-[address] JAMAR FALL [facility] [employer] Other Start: 07-21-2022 Office outpatient vi sit 15 minutes Jamar Fall [facility] Start: 07-21-2022 Patient encounter procedure Jamar Fall [facility] Start: 07-21-2022 Telephone encounter Jamar Fall [facility] Start: 05-27-2022 End: 05-28-2022 ambulatory NONE LISTED REQUEST Facility:[facility] Start: 05-13-2022 End: 05-13-2022 Patient encounter procedure Anthony SCRUGGS [facility] Start: 05-12-2022 End: 05-12-2022 Patient encounter procedure Zach Khan MD Work Phone: Radiation Oncology Comment on above: Malignant neoplasm o f prostate (HCC) (Primary Dx) Start: 05-12-2022 End: 05-12-2022 ambulatory [facility] Work Phone: Hematology/Oncology Comment on above: Malignant [...] encounter procedure Anthony SCRUGGS [facility] Start: 11-05-2021 End: 11-06-[address] MARCO A ESQUEDA Facility: Start: 11-04-2021 ambulatory Clementine lee RN Work Phone: Hematology/Oncology Comment on above: Oral Anti-cancer Age nt Education (Enzalutamide) Start: 11-04-2021 Telephone encounter Aida Coles [facility] Work Phone: Hematology/Oncology Comment on above: Medication [...] 07-22-2021 Adult health examination Bam Fall Other [employer] Other Procedures Date Procedure Procedure Detail Performing Clinician Start: 08-28-2023 CRYOTHERAPY SKIN LESION Long Galo Rajeev 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 Work Phone: Start: 08-28-2023 SKIN / NAIL BIOPSY Windy Galo Rajeev 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 Work Phone: Start: 07-17-2023 Decompression of med anthony nerve Anthony SCRUGGS Start: 10-25-[address] JESE FALL Comment on above: Performed By: #### P SAD #### [facility] [address], [place] [address] Dr[address] Bharati Aguiar Start: 05-05-[address] JESE FALL Comment on above: Performed By: #### P SAD ####[facility] [address] [place], [place] [address]GgDr. Bharati Aguiar Start: 02-16-2022 Adult depression scr eening assessment Marco A Esqueda MD Work Phone: Start: 11-10-2021 Adult depression scr eening assessment Clementine Aguilar RN Work Phone: Start: 05-03-2021 Adult depression scr eening assessment Marco A Esqueda MD Work Phone: Start: 03-30-2018 Teleradiotherapy procedure Anthony SCRUGSG Comment on above: Started on 01/2018 co [...] guidance Anthony SCRUGGS Start: 01-09-2007 Urodynamic studies Blairer roshni KAEL Start: 03-27-2006 Cystoscopy Anthony ROBBIN CHAVEZ Start: 08-26-2005 Cystoscopy Anthony ROBBIN BOONEEricka Start: 09-02-2002 Cystoscopy Anthony ROBBIN SCOTT Appendectomy Anthony SCRUGGS Colonoscopy Anthony SCRUGGS Depression screening Reddy Fall Other Plan of Treatment Date Care Activity Detail Author Start: 04-25-2034 Urine microalbumin profile DTaP,Tdap,Td Vaccine (6 - Td or Tdap) [facility] Start: 08-01-2027 Diabetes Screening Diabetes Screening [facility] Start: 05-03-2027 Diabetes Screening Diabetes Screening [facility] Start: 01-24-2027 Diabetes Screening Diabetes Screening [facility] Start: 10-29-2026 Diabetes Screening Diabetes Screening [facility] Start: 04-24-2026 Diabetes Screening Diabetes Screening [facility] Start: 02-02-2026 DIABETES SCREEN DIABETES SCREEN [facility] Start: 11-10-2025 DIABETES SCREEN DIABETES SCREEN [facility] Start: 08-11-2025 DIABETES SCREEN DIABETES SCREEN [facility] Start: 05-12-2025 DIABETES SCREEN DIABETES SCREEN [facility] Start: 02-17-2025 DIABETES SCREEN DIABETES SCREEN [facility] Start: 11-11-2024 DIABETES SCREEN DIABETES SCREEN [facility] Start: 11-07-2024 End: 11-07-2024 Follow-up encounter Hematology/Oncology Comment on above: 3 month lab follow up with xgeva inj Start: 11-06-2024 End: 02-05-2025 CBC W Auto Differential panel - Blood COMPLETE BLOOD COUNT AND DIFFERENTIAL Lab Routine Malignant neoplasm of prostate (HCC) Essential hypertension 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 pectoris, unspecified vessel or lesion type Type 2 diabetes mellitus without complication, without long-term current use of insulin (HCC) Expected: 11/06/2024, Expires: 02/05/2025 [facility] Work Phone: Comment on above: Expected: 11/06/2024, Expires: Start: 11-06-2024 End: 02-05-2025 Comprehensive metabolic 2000 panel - Serum or Plasma COMPREHENSIVE METABOLIC PANEL Lab Routine Malignant neoplasm of prostate (HCC) Essential hypertension 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 pectoris, unspecified vessel or lesion type Type 2 diabetes mellitus without complication, without long-term current use of insulin (HCC) Expected: 11/06/2024, Expires: 02/05/2025 [facility] Comment on above: Expected: 11/06/2024, Expires: Start: 11-06-2024 End: 02-05-2025 Prostate specific Ag [Mass/volume] in Serum or Plasma PROSTATE-SPECIFIC ANTIGEN DIAGNOSTIC Lab Routine Malignant neoplasm of prostate (HCC) Essential hypertension 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 pectoris, unspecified vessel or lesion type Type 2 diabetes mellitus without complication, without long-term current use of insulin (HCC) Expected: 11/06/2024, Expires: 02/05/2025 [facility] Comment on above: Expected: 11/06/2024, Expires: Start: 10-31-2024 End: 10-31-2024 Patient encounter procedure 10/31/2024 9:00 AM EDT Office Visit [facility] [address] [place] [address] [place] [address] lab [facility] Comment on above: lab Start: 10-25-2024 Covid-19 Vaccine () Covid-19 Vaccine ( season) [facility] Start: 08-08-2024 End: 08-08-2024 Follow-up encounter Hematology/Oncology Comment on above: 3 month lab follow up with xgeva inj Start: 08-01-2024 End: 08-01-2024 Patient encounter procedure 08/01/2024 9:00 AM EST Office Visit [facility] [address] [place] [address] 3 month labs [facility] Comment on above: 3 month labs Start: 07-17-2024 Advance Directive Discussion Advance Directive Discussion [facility] Start: 05-09-2024 End: 05-09-2024 Follow-up encounter Hematology/Oncology Comment on above: 3 month lab follow up with xgeva inj Start: 05-07-2024 End: 05-07-2024 Patient encounter procedure 05/07/2024 9:00 AM EDT Office Visit [facility] [address] [place] [address] 3 month lab follow up with xgeva inj [facility] Comment on above: 3 month lab follow up with xgeva inj Start: 05-03-2024 End: 05-03-2024 Patient encounter procedure 05/03/2024 9:00 AM EDT Office Visit [facility] [address] [place] [address] 3 month lab follow up with xgeva inj [facility] Comment on above: 3 month lab follow up with xgeva inj Start: 04-29-2024 End: 07-29-2024 CBC W Auto Differential panel - Blood COMPLETE BLOOD COUNT AND DIFFERENTIAL Lab Routine Malignant neoplasm of prostate (HCC) Expected: 04/29/2024, Expires: 07/29/2024 [facility] Work Phone: Comment on above: Expected: 04/29/2024, Expires: Start: 04-29-2024 End: 07-29-2024 Comprehensive metabolic 2000 panel - Serum or Plasma COMPREHENSIVE METABOLIC PANEL Lab Routine Malignant neoplasm of prostate (HCC) Expected: 04/29/2024, Expires: 07/29/2024 [facility] Comment on above: Expected: 04/29/2024, Expires: Start: 04-29-2024 End: 07-29-2024 Prostate specific Ag [Mass/volume] in Serum or Plasma PROSTATE-SPECIFIC ANTIGEN DIAGNOSTIC Lab Routine Malignant neoplasm of prostate (HCC) Expected: 04/29/2024, Expires: 07/29/2024 [facility] Comment on above: Expected: 04/29/2024, Expires: Start: 03-17-2024 Covid-19 Vaccine () Covid-19 Vaccine () [facility] Start: 03-17-2024 Influenza vaccination Influenza Vaccine (#1) [facility] Start: 02-26-2024 End: 02-26-2024 Patient encounter procedure 02/26/2024 10:10 AM EDT Office Visit [facility] [address] [place] [address] [employer] [address] [place] [address] [facility] Start: 11-03-2023 End: 02-02-2024 CBC W Auto Differential panel - Blood COMPLETE BLOOD COUNT AND DIFFERENTIAL Lab Routine Malignant neoplasm of prostate (HCC) Essential hypertension 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 pectoris, unspecified vessel or lesion type Type 2 diabetes mellitus without complication, without long-term current use of insulin (HCC) Lesion of skin of right ear Abdominal discomfort Expected: 11/03/2023, Expires: 02/02/2024 [facility] Work Phone: Comment on above: Expected: 11/03/2023, Expires: Start: 11-03-2023 End: 02-02-2024 Comprehensive metabolic 2000 panel - Serum or Plasma COMPREHENSIVE METABOLIC PANEL Lab Routine Malignant neoplasm of prostate (HCC) Essential hypertension 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 pectoris, unspecified vessel or lesion type Type 2 diabetes mellitus without complication, without long-term current use of insulin (HCC) Lesion of skin of right ear Abdominal discomfort Expected: 11/03/2023, Expires: 02/02/2024 [facility] Work Phone: Comment on above: Expected: 11/03/2023, Expires: Start: 11-03-2023 End: 02-02-2024 Prostate specific Ag [Mass/volume] in Serum or Plasma PROSTATE-SPECIFIC ANTIGEN DIAGNOSTIC Lab Routine Malignant neoplasm of prostate (HCC) Essential hypertension 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 pectoris, unspecified vessel or lesion type Type 2 diabetes mellitus without complication, without long-term current use of insulin (HCC) Lesion of skin of right ear Abdominal discomfort Expected: 11/03/2023, Expires: 02/02/2024 [facility] Work Phone: Comment on above: Expected: 11/03/2023, Expires: Start: 08-28-2023 End: 08-28-2023 Patient encounter procedure 08/28/2023 11:25 AM EST Office Visit [facility] [address] [place] [id number] Long [employer]oo [employer] [address] [place] [address] Arrived [facility] Comment on above: Arrived Start: 07-28-2023 End: 09-27-2023 CBC W Auto Differential panel - Blood CBC + DIFF Lab Routine Malignant neoplasm of prostate (HCC) 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 pectoris, unspecified vessel or lesion type Essential hypertension Type 2 diabetes mellitus without complication, without long-term current use of insulin (HCC) Expected: 07/28/2023, Expires: 09/27/2023 [facility] Work Phone: Comment on above: Expected: 07/28/2023, Expires: Start: 07-28-2023 End: 09-27-2023 Comprehensive metabolic 2000 panel - Serum or Plasma COMP METABOLIC PANEL Lab Routine Malignant neoplasm of prostate (HCC) 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 pectoris, unspecified vessel or lesion type Essential hypertension Type 2 diabetes mellitus without complication, without long-term current use of insulin (HCC) Expected: 07/28/2023, Expires: 09/27/2023 [facility] Work Phone: Comment on above: Expected: 07/28/2023, Expires: Start: 07-28-2023 End: 09-27-2023 Prostate specific Ag [Mass/volume] in Serum or Plasma PSA/PROSTSPECAG DIAG Lab Routine Malignant neoplasm of prostate (HCC) 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 pectoris, unspecified vessel or lesion type Essential hypertension Type 2 diabetes mellitus without complication, without long-term current use of insulin (HCC) Expected: 07/28/2023, Expires: 09/27/2023 [facility] Work Phone: Comment on above: Expected: 07/28/2023, Expires: Start: 07-17-2023 Advance Directive Discussion Advance Directive Discussion [facility] Start: 07-17-2023 Behavioral Health Screening Behavioral Health Screening [facility] Start: 06-19-2023 Urine microalbumin profile [facility] Start: 05-03-2023 End: 07-03-2023 Basic metabolic 2000 panel - Serum or Plasma BASIC METABOLIC PNL Lab Routine Malignant neoplasm of prostate (HCC) Expected: 05/03/2023 (Approximate), Expires: 07/03/2023 [facility] Work Phone: Comment on above: Expected: 05/03/2023 (Approximate), Expi res: 07/03/2023 Start: 05-03-2023 End: 07-03-2023 CBC W Auto Differential panel - Blood CBC + DIFF Lab Routine Malignant neoplasm of prostate (HCC) Expected: 05/03/2023 (Approximate), Expires: 07/03/2023 [facility] Work Phone: Comment on above: Expected: 05/03/2023 (Approximate), Expi res: 07/03/2023 Start: 05-03-2023 End: 07-03-2023 Prostate specific Ag [Mass/volume] in Serum or Plasma PSA/PROSTSPECAG DIAG Lab Routine Malignant neoplasm of prostate (HCC) Expected: 05/03/2023 (Approximate), Expires: 07/03/2023 [facility] Work Phone: Comment on above: Expected: 05/03/2023 (Approximate), Expi res: 07/03/2023 Start: 05-03-2023 End: 07-03-2023 Testosterone [Mass/volume] in Serum or Plasma TESTOSTERONE TOTAL Lab Routine Malignant neoplasm of prostate (HCC) Expected: 05/03/2023 (Approximate), Expires: 07/03/2023 [facility] Work Phone: Comment on above: Expected: 05/03/2023 (Approximate), Expi res: 07/03/2023 Start: 03-17-2023 Covid-19 Vaccine () Covid-19 Vaccine () [facility] Start: 03-17-2023 Influenza vaccination [facility] Start: 02-16-2023 Adult depression screening assessment DEPRESSION SCREENING [facility] Start: 02-09-2023 End: 04-11-2023 CBC W Auto Differential panel - Blood CBC + DIFF Lab Routine Malignant neoplasm of prostate (HCC) 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 pectoris, unspecified vessel or lesion type Essential hypertension Type 2 diabetes mellitus without complication, without long-term current use of insulin (HCC) Expected: 02/09/2023, Expires: 04/11/2023 [facility] Work Phone: Comment on above: Expected: 02/09/2023, Expires: Start: 02-09-2023 End: 04-11-2023 Comprehensive metabolic 2000 panel - Serum or Plasma COMP METABOLIC PANEL Lab Routine Malignant neoplasm of prostate (HCC) 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 pectoris, unspecified vessel or lesion type Essential hypertension Type 2 diabetes mellitus without complication, without long-term current use of insulin (HCC) Expected: 02/09/2023, Expires: 04/11/2023 [facility] Work Phone: Comment on above: Expected: 02/09/2023, Expires: Start: 02-09-2023 End: 04-11-2023 Prostate specific Ag [Mass/volume] in Serum or Plasma PSA/PROSTSPECAG DIAG Lab Routine Malignant neoplasm of prostate (HCC) 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 pectoris, unspecified vessel or lesion type Essential hypertension Type 2 diabetes mellitus without complication, without long-term current use of insulin (HCC) Expected: 02/09/2023, Expires: 04/11/2023 [facility] Work Phone: Comment on above: Expected: 02/09/2023, Expires: 3 Start: 11-10-2022 Adult depression screening assessment DEPRESSION SCREENING [facility] Start: 08-22-2022 COVID-19 VACCINE (6 - Moderna series) COVID-19 VACCINE (6 - Moderna series) [facility] Start: 07-17-2022 ADVANCE DIRECTIVE DISCUSSION ADVANCE DIRECTIVE DISCUSSION [facility] Start: 07-17-2022 DEPRESSION ASSESSMENT DEPRESSION ASSESSMENT [facility] Start: 05-03-2022 Adult depression screening assessment DEPRESSION SCREENING [facility] Start: 05-03-2022 End: 07-03-2022 CBC W Auto Differential panel - Blood CBC + DIFF Lab Routine Malignant neoplasm of prostate (HCC) Expected: 05/03/2022, Expires: 07/03/2022 [facility] Work Phone: Comment on above: Expected: 05/03/2022, Expires: 2 Start: 05-03-2022 End: 07-03-2022 Comprehensive metabolic 2000 panel - Serum or Plasma COMP METABOLIC PANEL Lab Routine Malignant neoplasm of prostate (HCC) Expected: 05/03/2022, Expires: 07/03/2022 [facility] Work Phone: Comment on above: Expected: 05/03/2022, Expires: 2 Start: 05-03-2022 End: 07-03-2022 Prostate specific Ag [Mass/volume] in Serum or Plasma PSA/PROSTSPECAG DIAG Lab Routine Malignant neoplasm of prostate (HCC) Expected: 05/03/2022, Expires: 07/03/2022 [facility] Work Phone: Comment on above: Expected: 05/03/2022, Expires: 2 Start: 03-17-2022 Influenza vaccination [facility] Start: 11-02-2021 End: 01-02-2022 CBC W Auto Differential panel - Blood CBC + DIFF Lab Routine Malignant neoplasm of prostate (HCC) Expected: 11/02/2021, Expires: 01/02/2022 [facility] Work Phone: Comment on above: Expected: 11/02/2021, Expires: 2 Start: 11-02-2021 End: 01-02-2022 Comprehensive metabolic 2000 panel - Serum or Plasma COMP METABOLIC PANEL Lab Routine Malignant neoplasm of prostate (HCC) Expected: 11/02/2021, Expires: 01/02/2022 [facility] Work Phone: Comment on above: Expected: 11/02/2021, Expires: 2 Start: 09-14-2021 COVID-19 VACCINE (5 - Booster) COVID-19 VACCINE (5 - Booster) [facility] Start: 08-17-2021 COVID-19 VACCINE (4 - Booster for Moderna series) COVID-19 VACCINE (4 - Booster for Moderna series) [facility] Start: 07-17-2021 ADVANCE DIRECTIVE DISCUSSION ADVANCE DIRECTIVE DISCUSSION [facility] Start: 07-17-2021 DEPRESSION ASSESSMENT DEPRESSION ASSESSMENT [facility] Start: 02-22-2021 COVID-19 VACCINE (3 - Booster for Moderna series) COVID-19 VACCINE (3 - Booster for Moderna series) [facility] Start: 06-07-2015 PNEUMOVAX AGE 65 AND OVER WITH 5YR LOOKBACK (#1) PNEUMOVAX AGE 65 AND OVER WITH 5YR LOOKBACK (#1) [facility] Start: 06-20-2013 Urine microalbumin profile DTAP,TDAP,TD (1 - Tdap) [facility] Start: 08-22-2012 SHINGRIX VACCINE (2 of 3) SHINGRIX VACCINE (2 of 3) [facility] Start: 2006 RSV Vaccine (1 - 1-dose 60+ series) RSV Vaccine (1 - 1-dose 60+ series) [facility] Start: 02-14-1996 SHINGRIX VACCINE (1 of 2) SHINGRIX VACCINE (1 of 2) [facility] Start: 1991 COLOGUARD (FIT-DNA) COLOGUARD (FIT-DNA) [facility] Start: 1991 Colonoscopy COLONOSCOPY [facility] Start: 1991 COLORECTAL CANCER SCREENING COLORECTAL CANCER SCREENING [facility] Start: [address] COLONOGRAPHY [facility] Start: 1991 DIABETES SCREEN DIABETES SCREEN [facility] Start: 1991 FECAL OCCULT BLOOD FECAL OCCULT BLOOD [facility] Start: 1991 SIGMOIDOSCOPY SIGMOIDOSCOPY [facility] Start: 1981 LIPID SCREEN LIPID SCREEN [facility] Start: 02-14-1964 Anxiety Screening Anxiety Screening [facility] Start: 02-14-1964 Depression Screening Depression Screening [facility] Start: 02-14-1964 HEPATITIS C SCREENING HEPATITIS C SCREENING [facility] Start: 02-14-1964 Hepatitis C screening Hepatitis C Screening [facility] Dermatopathology exam Dermatopat hology exam Pathology and Cytology Timed Neoplasm of unspecified behavior of bone, soft tissue, and skin Release Upon Ordering for 1 Occurrences starting 08/28/2023 [facility] Work Phone: Comment on above: Release Upon Ordering for 1 Occurrences starting 08/28/2023 MR Cervical spine WO contrast [facility] US Extremity [facility] Immunizations Immunization Date Immunization Notes Care Provider Iris quinonez 03-26-2024 influenza, high dose seasonal, preservative-free [facility] 05-01-2023 influenza virus vaccine, unspecified formulation [facility] 05-01-2023 influenza, high dose seasonal, preservative-free Jamar Fall Other [facility] 04-28-2022 influenza nasal, unspecified formulation Lab/[facility] Work Phone: [facility] 04-28-2022 influenza, high-dose , quadrivalent vaccine (FLUZONE HIGH DOSE QUADRIVALENT) [facility] Work Phone: [facility] 04-28-2022 influenza, high dose seasonal, preservative-free Jamar Fall Other [facility] 04-28-2022 influenza virus vaccine, unspecified formulation [facility]/[place] Work Phone: [facility] 04-21-2022 COVID-19 booster vaccine, age 12+ yr, bivalent (MODERNA) [facility] Work Phone: [facility] Comment on above: Result Comment: 2023: [id number] 01-21-2022 COVID-19 Vaccine Moderna - Documentation Purposes Only Jamar Fall Other [facility] Comment on above: Result Comment: 2023: [id number] 05-17-2021 COVID-19 Vaccine Moderna - Documentation Purposes Only Jamar Fall Other [facility] Comment on above: Result Comment: 2023: [id number] 04-22-2021 influenza virus vaccine, split virus (incl. purified surface antigen) Jamar Juan David Other [facility] 04-22-2021 influenza virus vaccine, unspecified formulation [facility] 04-16-2021 influenza nasal, unspecified formulation Marco A Esqueda MD Work Phone: [facility] 04-16-2021 influenza virus vaccine, unspecified formulation Anthony SCRUGGS [facility] 09-22-2020 COVID-19 Vaccine Moderna - Documentation Purposes Only Jamar Fall Other [facility] 08-26-2020 SARS-CoV-2 (COVID-19 ) Ad26 vaccine, recombinant Anthony SCRUGGS [facility] 08-24-2020 COVID-19 original vaccine, full dose, monovalent (MODERNA) [facility]/[place] Work Phone: [facility] 07-17-2020 SARS-CoV-2 (COVID-19 ) [id number] vaccine Anthonycindy SCRUGGS [facility] Comment on above: Result Comment: pt d oes not know the dates but states that he is fully vaccinated 04-23-2020 influenza virus vaccine, split virus (incl. purified surface antigen) Jamar Fall Other [facility] 04-23-2020 influenza virus vaccine, unspecified formulation [facility] 04-22-2019 influenza virus vaccine, split virus (incl. purified surface antigen) Jamar Fall Other [facility] 04-22-2019 influenza virus vaccine, unspecified formulation [facility] 04-16-2019 influenza nasal, unspecified formulation Marco A Esqueda MD Work Phone: [facility] 08-20-2018 zoster vaccine recombinant Marco A Esqueda MD Work Phone: [facility] 06-11-2018 zoster vaccine recombinant Marco A Esqueda MD Work Phone: [facility] 04-16-2018 influenza nasal, unspecified formulation Marco A Esqueda MD Work Phone: [facility] 03-27-2018 AS03 adjuvant Lab/[facility] Work Phone: [facility] 03-27-2018 influenza nasal, unspecified formulation Lab/[facility] Work Phone: [facility] 03-27-2018 influenza virus vaccine, split virus (incl. purified surface antigen) Jamar Fall Other [facility] Other 03-27-2018 influenza virus vaccine, unspecified formulation Anthony SCRUGGS [facility] 03-27-2018 Seasonal trivalent influenza vaccine, adjuvanted, preservative free Marco A Esqueda MD Work Phone: [facility] 06-12-2017 pneumococcal polysaccharide vaccine, 23 valent Marco A Esqueda MD Work Phone: [facility] 06-01-2017 pneumococcal polysaccharide vaccine, 23 valent Jamar Fall Other [facility] 06-01-2017 Prevnar 20 Jamar Fall Other [facility] 05-31-2017 influenza nasal, unspecified formulation Lab/[place] Work Phone: [facility] 05-31-2017 influenza virus vaccine, unspecified formulation Anthonycindy SCRUGGS [facility] 05-31-2017 influenza, injectabl e, quadrivalent, preservative free Marco A Esqueda MD Work Phone: [facility] 04-03-2017 influenza nasal, unspecified formulation [facility] Work Phone: [facility] 04-03-2017 influenza virus vaccine, split virus (incl. purified surface antigen) Jamar Fall Other [facility] Other 04-03-2017 influenza virus vaccine, unspecified formulation Anthonycindy SCRUGGS [facility] 04-03-2017 influenza, high dose seasonal, preservative-free Marco A Esqueda MD Work Phone: [facility] 03-23-2017 influenza nasal, unspecified formulation Marco A Esqueda MD Work Phone: [facility] 04-01-2016 influenza virus vaccine, split virus (incl. purified surface antigen) Jamar Fall Other [facility] 04-01-2016 influenza virus vaccine, unspecified formulation [facility] 03-31-2016 influenza nasal, unspecified formulation Marco A Esqueda MD Work Phone: [facility] 05-11-2015 influenza nasal, unspecified formulation Marco A Esqueda MD Work Phone: [facility] 05-11-2015 influenza, seasonal, injectable, preservative free [facility]/[place] Work Phone: [facility] 05-11-2015 pneumococcal conjuga te vaccine, 13 valent Marco A Esqueda MD Work Phone: [facility] 04-29-2015 pneumococcal polysaccharide vaccine, 23 valent Marco A Esqueda MD Work Phone: [facility] 06-09-2014 influenza nasal, unspecified formulation Lab/[facility] Work Phone: [facility] 06-09-2014 influenza, seasonal, injectable, preservative free Marco A Esqueda MD Work Phone: [facility] 06-19-2013 diphtheria, tetanus toxoids and acellular pertussis vaccine, unspecified formulation Marco A Esqueda MD Work Phone: [facility] 06-19-2013 tetanus and diphther ia toxoids, not adsorbed, for adult use Marco A Esqueda MD Work Phone: [facility] 05-23-2013 influenza nasal, unspecified formulation Marco A Esqueda MD Work Phone: [facility] 04-24-2013 tetanus and diphther ia toxoids, adsorbed, preservative free, for adult use (5 Lf of tetanus toxoid and 2 Lf of diphtheria toxoid) Jamar Fall Other [facility] 06-27-2012 zoster vaccine, live Marco A lake MD Work Phone: [facility] 06-11-2012 influenza nasal, unspecified formulation Marco A Esqueda MD Work Phone: [facility] 06-02-2011 influenza nasal, unspecified formulation Marco A Esqueda MD Work Phone: [facility] 06-23-2010 pneumococcal polysaccharide vaccine, 23 valent Jamar Fall Other [facility] 06-07-2010 pneumococcal polysaccharide vaccine, 23 valent Marco A Esqueda MD Work Phone: [facility] 06-07-2010 pneumococcal vaccine , unspecified formulation Marco A Esqueda MD Work Phone: [facility] 05-28-2010 influenza nasal, unspecified formulation Marco A Esqueda MD Work Phone: [facility] 01-14-2010 pneumococcal polysaccharide vaccine, 23 valent Jamar Fall Other [facility] 05-25-2009 influenza nasal, unspecified formulation Marco A Esqueda MD Work Phone: [facility] 06-09-2008 influenza nasal, unspecified formulation Marco A Esqueda MD Work Phone: [facility] 07-23-2003 influenza virus vaccine, whole virus Marco A Esqueda MD Work Phone: [facility] 01-14-2003 diphtheria, tetanus toxoids and acellular pertussis vaccine, unspecified formulation Jamar Fall Other [facility] 01-10-2003 TD(adult) unspecifie d formulation Marco A Esqueda MD Work Phone: [facility] 07-03-2002 influenza nasal, unspecified formulation Marco A Esqueda MD Work Phone: [facility] Payers Date Payer Category Payer Private Health Insurance MMO MED ICARE SUPPLEMENT [id number] 2019 Unknown MMO MMO MEDICARE SUPPLEMENT [id number] 2019-Present [phone] [address] [place] [address] Indemnity [id number] 2019 Unknown [id number] 2011 Medicare MEDICARE MEDICAR E A AND B [id number] 2011-Present [phone] [address] [address] [place] [address] Medicare [id number] 2011 Medicare [id number] 1959 Medicare [id number] 1959 Self-pay 1959 Unknown [id number] 2.16.840.1.380755.19 1945 Unknown [id number] 2.16.840.1.402780.3.579.2. 593 1945 Unknown [id number] 2.16.840.1.275363.3.579.2. 593 1945 Unknown [id number] 2.16.840.1.287636.3.579.2. 593 1945 Unknown [id number] 2.16.840.1.216928.3.579.2. 593 1945 Unknown [id number] 2.16.840.1.286183.3.579.2. 593 1945 Unknown [id number] 2.16.840.1.568548.3.579.2. 1259 1945 Unknown [id number] 2.16.840.1.378568.3.579.2. 1259 1945 Unknown [id number] 2.16.840.1.144422.3.579.2. 1259 1945 Unknown [id number] 2.16.840.1.507929.3.579.2. 1259 1945 Unknown [id number] 2.16.840.1.954152.3.579.2. 1259 1945 Unknown [id number] 2.16.840.1.509321.3.579.2. 727 1945 Unknown [id number] 2.16.840.1.565092.3.579.2. 727 1945 Unknown [id number] 2.16.840.1.665392.3.579.2. 727 1945 Unknown [id number] 2.16.840.1.335703.3.579.2. 727 1945 Unknown [id number] 2.16.840.1.737369.3.579.2. 196 1945 Unknown [id number] 2.16.840.1.864082.3.579.2. Unknown [id number] 2.16.840.1.192836.3.579.2. 593 Unknown [id number] 2.16.840.1.950047.3.579.2. 593 Unknown [id number] 2.16.840.1.832231.3.579.2. 593 Social History Date Type Detail Facility Start: 11-08-2021 End: 08-11-2022 Tobacco smoking status NHIS Never smoked tobacco [facility] Start: 10-25-2021 End: 11-02-2023 Alcohol intake Current drinker of alcohol (finding) [facility] Start: 08-19-2014 History SDOH Alcohol Comment 1 day/wk [facility] Start: 1945 Sex Assigned At Not on file C [facility] Start: 10-18-2021 End: 05-12-2022 Exposure to SARS-CoV-2 (event) Not sure [facility] Tobacco smoking status Never [facility] Start: 02-02-2023 End: 01-31-2024 Sex Assigned At Male [facility] Start: 1945 [facility] Start: 01-12-2018 End: 08-11-2022 Tobacco use and exposure Smokeless tobacco non-user [facility] Start: 02-02-2023 End: 01-31-2024 History of Social function [facility] Start: 02-11-2022 Gender identity Identifies as male gender (finding) [facility] Start: 02-11-2022 Sexual orientation Heterosexual (fin ding) [facility] How often to you hav [...] e: more than 4 cups per day [facility] Start: 09-06-2023 End: 09-06-2023 Tobacco smoking status NHIS Ex-smoker (finding) [facility] Start: 09-02-2024 Sex Male (finding) [facility] NEGATED: Highlighted rowStart: ARPITA History of tobacco use Passive smoker [facility] Medical Equipment Procedure Code Equipment Code Equipment Origin al Text Equipment Identifier Dates Start: 10-26-2021 End: 05-12-2022 Comment on above: 1 Each once daily. T o test blood sugars 1 Each once daily. T o test blood sugar Blood Sugar Diagnostic (Contour Next Test Strips) strip Start: 10-10-2023 Lancets (Lancets,Thin) [facility] Start: 09-08-2023 Blood Sugar Diagnostic (Contour Next Test Strips) strip Start: 09-08-2023 End: 10-10-2023 Blood Sugar Diagnostic (Contour Next Test Strips) strip Start: 10-10-2023 Lancets (Lancets,Thin) [facility] Start: 09-08-2023 Blood Sugar Diagnostic (Contour Next Test Strips) strip Start: 09-08-2023 End: 10-10-2023 Blood Sugar Diagnostic (Contour Next Test Strips) strip Start: 10-10-2023 Lancets (Lancets,Thin) [facility] Start: 09-08-2023 Blood Sugar Diagnostic (Contour Next Test Strips) strip Start: 09-08-2023 End: 10-10-2023 Functional Status Date Assessment Result Facility 04-19-2024 Functional Status N/A [facility] 10-20-2023 Functional Status N/A [facility] 04-17-2023 Functional Status N/A [facility] 05-13-2022 Functional Status N/A [facility] 08-19-2014 Are you deaf, or do you have serious difficulty hearing No 08/19/2014 10:35 AM Santiago Mills LPN No [facility] 08-19-2014 Are you blind, or do you have serious difficulty seeing, even when wearing glasses Yes 08/19/2014 10:35 AM Santiago Mills LPN Yes [facility] 08-19-2014 Do you have serious difficulty walking or climbing stairs No 08/19/2014 10:35 AM Santiago Mills LPN No [facility] 08-19-2014 Do you have difficul ty dressing or bathing No 08/19/2014 10:35 AM Santiago Mills LPN No [facility] 08-19-2014 Because of a physica l, mental, or emotional condition, do you have difficulty doing errands alone such as visiting a physician's office or shopping No 08/19/2014 10:35 AM Santiago Mills LPN No [facility] Mental Status Date Assessment Result Facility 08-19-2014 Because of a physica l, mental, or emotional condition, do you have serious difficulty concentrating, remembering, or making decisions No 08/19/2014 10:35 AM Santiago Mills LPN No [facility] Clinical Notes 07-17-2014 to 11-06-2024 Christo Howard APRN.[employer] - 08/07/2024 10:42 AM ESTTelephone Encounter - Josemanuel Ortiz - 07/25/2024 8:23 AM ESTTelephone Encounter - Josemanuel Ortiz - 07/25/2024 8:23 AM EST Note Date & Type Note Facility 11-06-2024 Note HNO ID: [id number] Author: MARCO A ESQUEDA MD Service: ? Author Type: Physician Type: Progress Notes Filed: 11/07/2024 14:08 Note Text: PATIENT NAME: Pablo Felix DATE: 11/07/2024 PRIMARY CARE PHYSICIAN: Dr. Jamar Fall OTHER PHYSICIANS: Dr. Anthony Scruggs, Dr. Khan, [facility] Cardiology Portions of this [...] mg 24 hr tablet Take by mouth. Qygxarwpswdhf-Usrbvybv-Yfdkmr (MULTIVITAMIN 50 PLUS) tab Take 1 tablet [...] Radical retropubic prostatectomy and bilateral pelvic lymphadenectomy ([facility]) Poorly differentiated prostatic adenocarcinoma of left [...] 0.84 05/06/2021 1.09 07/19/2021 1.58 10/25/2021 2.64 12/15 (more content not included)... [facility] 10-07-2024 Note Patient Education Oncology Hormone [...] cancer. Where to find more information ??? [place] [employer]: www.cancer.org ??? National Cancer Kevil: www.cancer.gov Contact a health care provider if: [...] confused. ??? You (more content not included)... [facility] 08-07-2024 Note HNO ID: [id number] Author: CHRISTO HOWARD APRN.ALEXA Service: ? Author Type: Nurse Practitioner Type: Progress Notes Filed: 08/08/2024 12:09 Note Text: PATIENT NAME: Pablo Felix DATE: 08/08/2024 PRIMARY CARE PHYSICIAN: Dr. Jamar Fall OTHER PHYSICIANS: Dr. Anthony Scruggs, Dr. Khan, [facility] Cardiology Portions of this [...] mg 24 hr tablet Take by mouth. Ghzwdmgzygvrt-Qblbbicx-Sdcqmk (MULTIVITAMIN 50 PLUS) tab Take 1 tablet [...] Radical retropubic prostatectomy and bilateral pelvic lymphadenectomy ([facility]) Poorly differentiated prostatic adenocarcinoma of left [...] 1.58 10/25/2021 2.6 (more content not included)... [facility] 08-07-2024 History of Present illness Narrative PATIENT NAME: Pablo Felix DATE: 08/08/2024 PRIMARY CARE PHYSICIAN: Dr. Jamar Fall OTHER PHYSICIANS: Dr. Anthony Scruggs, Dr. Khan, [facility] Cardiology Portions of this [...] mg 24 hr tablet Take by mouth. Uhvydyyclwpjc-Qhuzzbkc-Ejngtz (MULTIVITAMIN 50 PLUS) tab Take 1 tablet [...] Radical retropubic prostatectomy and bilateral pelvic lymphadenectomy ([facility]) Poorly differentiated prostatic adenocarcinoma of left [...] 08/01/2024 0.19 RADIOLOGY/OTHER STUDIES: 11/05/2021 CT chest/abdomen/pelvis ([facility]) Several sclerotic lesions consistent with metastatic disease. No evidence of visceral organ involvement or lymphadenopathy. 11/05/2021 Bone scan ([facility]) Multifocal osseous metastasis including the left femur at the lesser trochanter, right pubis symphysis, multiple ribs bilaterally. 01/22/2018 Nuclear bone scan ([facility]) New focal increased activity left frontal bone, left T8 vertebral body. 01/22/2018 MRI pelvis ([facility]) 4.5 cm area of T2 signal in the prostate bed. 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 Stable on current medications. [...] PCP with CT scan monitoring. Christo Howard APRN.CNP CC: Dr. Anthony Scruggs I spent a total of 30 minutes on the date of the service which included preparing to see the patient, uzvn-ds-tbdt patient care, completing clinical documentation, obtaining and/or reviewing separately obtained history, performing a medically appropriate examination, counseling and educating the patient/family/caregiver, ordering medications, tests, or procedures, independently interpreting results (not separately reported), and communicating results to the patient/family/caregiver. documented in this encounter [facility] 07-25-2024 Telephone encounter Note Patient on lab schedule 08/01/24 for lab only prior to RV. Please review and place needed order. Thank you, Gabi Ortiz MLT [facility] 07-25-2024 Miscellaneous Notes Patient on lab schedule 08/01/24 for lab only prior to RV. Please review and place needed order. Thank you, Gabi Ortiz MLT documented in this encounter [facility] 06-10-2024 Evaluation note Diagnosis Onset [...] diabetes mellitus with hyperglycemia acute August 9:28am [facility] Work Phone: 1(850) 123-680310-23-2024 Telephone encounter Note* Telephone Encounter - Aida Luo RPh - 05/08/2024 8:53 AM EDT This prescription confirms Pablo' re-enrollment in the Xtandi free drug program for 2024. Thank you Josh Luo, RodolfoD, BCOP [facility] Work Phone: 1(753) 299-338910-23-2024 Miscellaneous Notes* Telephone Encounter - Aida Luo RPh - 05/08/2024 8:53 AM EDT This prescription confirms Pablo' re-enrollment in the Xtandi free drug program for 2024. Thank you Josh Luo, PharmD, BCOP [facility]24 NoteHNO ID: [id number] Author: MARCO A ESQUEDA MD Service: ? Author Type: Physician Type: Progress Notes Filed: 05/10/2024 07:40 Note Text: PATIENT NAME: Pablo Felix DATE: 05/09/2024 PRIMARY CARE PHYSICIAN: Dr. Jamar Fall OTHER PHYSICIANS: Dr. Anthony Scruggs, Dr. Khan, [facility] Cardiology Portions of this [...] mg 24 hr tablet Take by mouth. Kmgjollnywnkj-Irwcfjwk-Yktxkw (MULTIVITAMIN 50 PLUS) tab Take 1 tablet [...] Radical retropubic prostatectomy and bilateral pelvic lymphadenectomy ([facility]) Poorly differentiated prostatic adenocarcinoma of left [...] 08/11/2022 0.11 10/25/2022 0.1 (more content not included)...[facility]10-23-2024 History of Present illness Narrative* Marco A Esqueda MD - 05/08/2024 8:13 AM EDT PATIENT NAME: Pablo Felix DATE: 05/09/2024 PRIMARY CARE PHYSICIAN: Dr. Jamar Fall OTHER PHYSICIANS: Dr. Anthony Scruggs, Dr. Khan, [facility] Cardiology Portions of this [...] mg 24 hr tablet Take by mouth. Mvvmvvouglfpk-Lkqqsgsl-Bckqyq (MULTIVITAMIN 50 PLUS) tab Take 1 tablet [...] Radical retropubic prostatectomy and bilateral pelvic lymphadenectomy ([facility]) Poorly differentiated prostatic adenocarcinoma of left [...] 05/03/2024 0.18 RADIOLOGY/OTHER STUDIES: 11/05/2021 CT chest/abdomen/pelvis ([facility]) Several sclerotic lesions consistent with metastatic disease. No evidence of visceral organ involvement or lymphadenopathy. 11/05/2021 Bone scan ([facility]) Multifocal osseous metastasis including the left femur at the lesser trochanter, right pubis symphysis, multiple ribs bilaterally. 01/22/2018 Nuclear bone scan ([facility]) New focal increased activity left frontal bone, left T8 vertebral body. 01/22/2018 MRI pelvis ([facility]) 4.5 cm area of T2 signal in the prostate bed. 07/24/2014 CT abdomen/pelvis ([facility] Diffuse prostatic enlargement with indentation of the bladder base. Incidental 2.5 x 1 cm exophytic hypodense lesion adjacent to the pancreatic body. ASSESSMENT/PLAN: 1. Metastatic prostate cancer (HCC) - ICD9: 185, ICD10: C61 (primary diagnosis) The patient was diagnosed with early-stage high-grade prostate cancer in June 2014 (TRUS [id number]/02/2014). He underwent a radical prostatectomy on 11/05/2014. 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 Stable on current medications. [...] CC: Dr. Anthony Scruggs [facility] Hospital Discharge instructions Patient Education [...] under a microscope. This is called the [place] score and the total score can range from 6 10, indicating how likely it is that the cancer will spread (metastasize) to other parts of the body. The higher the score, the greater thelikelihood that the cancer will spread. Lucrecia 6 or lower: This indicates that the cancer cells look similar to normal prostate cells (well differentiated). [place] 7: This indicates that the cancer cells look somewhat similar to normal prostate cells (moderately differentiated). [place] 8, 9, or 10: This indicates that [...] stress of having cancer. General instructions Take zfeo-dhq-ngzdnkv and prescription medicines only as told by your health care provider. If you have to go to the hospital, notify your cancer specialist (oncologist). Keep all follow-up visits. This is important. Where to find more information [place] [employer]: www.cancer.org [place] Society of Clinical Oncology: www.cancer.net National Cancer Kevil: www.cancer.gov Contact a health care provider if: [...] provider. Document Revised: 09/29/2021 Document Reviewed: 09/29/2021 [employer] Patient Education 2023 [employer]. Follow Up Care 10/20/2023 09:58:12 With:KAEL JAMES, Anthony Lee, URL Address: [address] [place] [address]- When: Unknown [facility] 10-04-2024 NotePatient Education Oncology Prostate Cancer The [...] under a microscope. This is called the [place] score and the total score can range from 6?10, indicating how likely it is that the cancer will spread (metastasize) to other parts of the body. The higher the score, the greater thelikelihood that the cancer will spread. ? Lucrecia 6 or lower: This indicates that the cancer cells look similar to normal prostate cells (well differentiated). ? [place] 7: This indicates that the cancer cells look somewhat similar to normal prostate cells (moderately differentiated). ? [place] 8, 9, or 10: This indicates that [...] implanted intothe prostate gla (more content not included)...[facility] Telephone encounter Note* Telephone Encounter - Aida Luo RP - 04/01/2024 3:59 PM EDT Recd phone call from [facility] that they are unable to obtain the Xtandi 80mg tablets a thistime and requested a script for the 40 mg dosing. Order pending Josh Luo PharmD, IDALIA [facility] Work Phone: 1(173) 296-420509-16-2024 Miscellaneous Notes* Telephone Encounter - Aida Luo RPh - 04/01/2024 3:59 PM EDT Recd phone call from [facility] that they are unable to obtain the Xtandi 80mg tablets a thistime and requested a script for the 40 mg dosing. Order pending Josh Luo PharmD, BCOP documented in this encounter[facility]09-[facility]-2024 NoteCoronary artery disease is stable, no concerning symptoms currently overall is doing well he is planning bilateral carpal tunnel surgery soon with Dr. Charlton. Continue GDMT-continue aspirin, Lipitor, metoprolol, and lisinopril continue risk factor modifications- heart healthy diet, regular exercise as tolerated and continue all medications.[facility] 03-29-2024 NoteHypertension is well-controlled at 127/51 Continue lisinopril/hydrochlorothiazide and metoprolol. Renal function normalUnBethes[facility]09-13-2024 NoteLipid abnormalities are stable continue Lipitor 40 mg daily lipid profile is well-controlled and liver function is normalUnBethesda North Hospital 03-29-2024 NoteReviewed echocardiogram from July 08 moderate aortic stenosis noted and reviewed echo with patient and his No concerning symptoms at this time patient would like symptoms including palpitations, lightheaded dizziness, syncope, chest pain, worsening shortness of breath and he voiced understanding Monitor with echocardiogramUnBethesda North Hospital09-13-2024 Note RCRI=1 points Class II Risk 6.0 % 30-day risk of , ME, or cardiac arrest From a cardiac perspective pt may proceed with carpal tunnel surgery, he is a moderate risk for a low risk surgery. She may hold aspirin 5-7 days prior and resume post op. Please monitor hemodynamics carefully and prevent any major fluid shifts.[facility]09-13-2024 NotePt is here for surgery clearance. Pt denies chest pain, sob, palpatations Review of Systems Musculoskeletal: Positive for arthritis, back pain, joint pain and myalgias. All other systems reviewed and are negative.[facility] 03-29-2024 NoteUTP CARDIOLOGY PROGRESS NOTE HPI: [...] profile and stated everything was well-controlled Component 07/11/10/30/23 07/27/23 04/24/23 02/02/23 11/10/22 WBC 6.80 8.19 [...] AV stenosis and regur (more content not included)...[facility]07-19-2024 Instructions* Patient Instructions* Lynne Rajan APRN.CNP - 02/02/2024 11:37 AM EDT Possible [...] troubles swallowing, increasing confusion documented in [facility] encounter[facility] History of Present illness Narrative* Lynne Rajan APRN.CNP - 02/02/2024 11:30 AM EDT PATIENT NAME: Pablo Felix DATE: February 02, 2024 PRIMARY CARE PHYSICIAN: Dr. Jamar Fall OTHER PHYSICIANS: Dr. Anthony Scruggs, Dr. Khan, [facility] Cardiology This note was [...] mg 24 hr tablet Take by mouth. Amzuvazkrtktm-Unruordx-Rfvkwc (MULTIVITAMIN 50 PLUS) tab Take 1 tablet [...] Radical retropubic prostatectomy and bilateral pelvic lymphadenectomy ([facility]) Poorly differentiated prostatic adenocarcinoma of left [...] 01/25/2024 0.15 RADIOLOGY/OTHER STUDIES: 11/05/2021 CT chest/abdomen/pelvis ([facility]) Several sclerotic lesions consistent with metastatic disease. No evidence of visceral organ involvement or lymphadenopathy. 11/05/2021 Bone scan ([facility]) Multifocal osseous metastasis including the left femur at the lesser trochanter, right pubis symphysis, multiple ribs bilaterally. 01/22/2018 Nuclear bone scan ([facility]) New focal increased activity left frontal bone, left T8 vertebral body. 01/22/2018 MRI pelvis ([facility]) 4.5 cm area of T2 signal in the prostate bed. 07/24/2014 CT abdomen/pelvis ([facility] Diffuse prostatic enlargement with indentation of the bladder base. Incidental 2.5 x 1 cm exophytic hypodense lesion adjacent to the pancreatic body. ASSESSMENT/PLAN: 1. Metastatic prostate cancer (HCC) - ICD9: 185, ICD10: C61 (primary diagnosis) The patient was diagnosed with early-stage high-grade prostate cancer in June 2014 (TRUS evskox2107/02/2014). He underwent a radical prostatectomy on 11/05/2014. Pathology consistent with stage IIIC (pT2b, N0, M0), [place] 5+4 equal 9. Postop the patient's PSA [...] suppressed at <12. Bone scan obtained at [facility] 11/05/2021 revealed multiple bone metastases. 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 Stable on current medications. [...] Xgeva, and Dr. Esqueda follow up. Lynne Rajan APRN.ALEXA Hematology/Oncology [facility]/ [facility] [phone] CC: Dr. Anthony Scruggs documented in this encounterSouth[facility] Center04-[facility] History of Present illness Narrative* Christo Howard APRN.ALEXA - 11/02/2023 9:28 AM EDT PATIENT NAME: Pablo Felix DATE: 11/02/2023 PRIMARY CARE PHYSICIAN: Dr. Jamar Fall OTHER PHYSICIANS: Dr. Anthony Scruggs, Dr. Khan, [facility] Cardiology Portions of this [...] mg 24 hr tablet Take by mouth. Lbbocvyzqltxd-Ylylvnzi-Eksasy (MULTIVITAMIN 50 PLUS) tab Take 1 tablet [...] Radical retropubic prostatectomy and bilateral pelvic lymphadenectomy ([facility]) Poorly differentiated prostatic adenocarcinoma of left [...] 10/29/2023 0.16 RADIOLOGY/OTHER STUDIES: 11/05/2021 CT chest/abdomen/pelvis ([facility]) Several sclerotic lesions consistent with metastatic disease. No evidence of visceral organ involvement or lymphadenopathy. 11/05/2021 Bone scan ([facility]) Multifocal osseous metastasis including the left femur at the lesser trochanter, right pubis symphysis, multiple ribs bilaterally. 01/22/2018 Nuclear bone scan ([facility]) New focal increased activity left frontal bone, left T8 vertebral body. 01/22/2018 MRI pelvis ([facility]) 4.5 cm area of T2 signal in the prostate bed. 07/24/2014 CT abdomen/pelvis ([facility] [place] Diffuse prostatic enlargement with indentation of the bladder base. Incidental 2.5 x 1 cm exophytic hypodense lesion adjacent to the pancreatic body. ASSESSMENT/PLAN: 1. Metastatic prostate cancer (HCC) - ICD9: 185, ICD10: C61 (primary diagnosis) The patient was diagnosed with early-stage high-grade prostate cancer in June 2014 (TRUS [id number]/02/2014). He underwent a radical prostatectomy on 11/05/2014. Pathology consistent with stage IIIC (pT2b, N0, M0), [place] 5+4 equal 9. Postop the patient's PSA [...] suppressed at <12. Bone scan obtained at [facility] 11/05/2021 revealed multiple bone metastases. 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 Stable on current medications. [...] which included preparing to see the patient, naml-hd-rcbu patient care, completing clinical documentation, obtaining and/or reviewing separately obtained history, performing a medically appropriate examination, counseling and educating the pat ient/family/caregiver, ordering medications, tests, or procedures, independently interpreting results (not separately reported), and communicating results to the patient/family/caregiver. documented in this encounter[facility]04-[facility] Hospital Discharge instructions Patient Education [...] greater thelikelihood that the cancer will spread. [place] 6 or lower: This indicates that the cancer cells look similar to normal prostate cells (well differentiated). [place] 7: This indicates that the cancer cells [...] stress of having cancer. General instructions Take pxwl-rtk-fswbfnc and prescription medicines only as told by your health care provider. If you have to go to the hospital, notify your cancer specialist (oncologist). Keep all follow-up visits. This is important. Where to find more information [place] [employer]: www.cancer.org [place] Society of Clinical Oncology: www.cancer.net National Cancer Kevil: www.cancer.gov Contact a health care provider if: [...] provider. Document Revised: 09/29/2021 Document Reviewed: 09/29/2021 [employer] Patient Education 2022 [employer]. 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 pigmentary changes, recurrence, incomplete removal and [...] biopsy results, 6 months documented in this encounterSouthPointe [id number] Evaluation note* Encounter Date Diagnosis Assessment Notes [...] use, the patient reduces the risk for ME, CVA, HTN, cardiac dysrhythmias and sudden cardiac [...] retention cyst and frontal sinus mass benign ncyclo Other 01-19-2024 Evaluation note* Encounter Date Diagnosis Assessment Notes Treatment Notes Treatment Clinical Notes Jul, Pancreatic mass (ICD-10 - K86.89) MRCP: 4cm mass - 2022 - previously completed EUS bx at [facility] - stable in size from 2021 ncyclo [facility] Chief Complaint: Patient [...] should problems arise Bridger Mulligan MD, MPH, [facility], [facility], [facility] Interventional Cardiology Pager Email: [email or web address] Evaluation note* Encounter Date Diagnosis Assessment [...] ENT since scheduling appt for sinus mass ncyclo Other [id number] Evaluation note* Encounter Date Diagnosis Assessment Notes [...] and not interfering w/ ADL, bowel/bladder function. 16 Oct, 2023 Malignant neoplasm of prostate (ICD-10 - C61) Stable w/ declining PSA. Xtandi may be contributing to symptoms. 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 Jamar Fall OTHER PHYSICIANS: Dr. Anthony Scruggs, Dr. Khan, [facility] Cardiology Portions of this [...] mg 24 hr tablet Take by mouth. Msucktipppkwo-Guhbyait-Hqkotc (MULTIVITAMIN 50 PLUS) tab Take 1 tablet [...] Radical retropubic prostatectomy and bilateral pelvic lymphadenectomy ([facility]) Poorly differentiated prostatic adenocarcinoma of left [...] 04/24/2023 0.12 RADIOLOGY/OTHER STUDIES: 11/05/2021 CT chest/abdomen/pelvis ([facility]) Several sclerotic lesions consistent with metastatic disease. No evidence of visceral organ involvement or lymphadenopathy. 11/05/2021 Bone scan ([facility]) Multifocal osseous metastasis including the left femur at the lesser trochanter, right pubis symphysis, multiple ribs bilaterally. 01/22/2018 Nuclear bone scan ([facility]) New focal increased activity left frontal bone, left T8 vertebral body. 01/22/2018 MRI pelvis ([facility]) 4.5 cm area of T2 signal in the prostate bed. 07/24/2014 CT abdomen/pelvis ([facility] Diffuse prostatic enlargement with indentation of the bladder base. Incidental 2.5 x 1 cm exophytic hypodense lesion adjacent to the pancreatic body. ASSESSMENT/PLAN: 1. Metastatic prostate cancer (HCC) - ICD9: 185, ICD10: C61 (primary diagnosis) The patient was diagnosed with early-stage high-grade prostate cancer in June 2014 (TRUS [id number]/02/2014). He underwent a radical prostatectomy on 11/05/2014. Pathology consistent with stage IIIC (pT2b, N0, M0), [place] 5+4 equal 9. Postop the patient's PSA [...] suppressed at <12. Bone scan obtained at [facility] 11/05/2021 revealed multiple bone metastases. 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 Stable on current medications. [...] monitor with repeat CT scan. Christo Howard APRN.[employer]NER CC: Dr. Anthony Scruggs I spent a total of 30 minutes on the date of the service which included preparing to see the patient, cjwx-ng-zpio patient care, completing clinical documentation, obtaining and/or reviewing separately obtained history, performing a medically appropriate examination, counseling and educating the pat ient/family/caregiver, ordering medications, tests, or procedures, independently interpreting results (not separately reported), and communicating results to the patient/family/caregiver. documented in this encounterSouthview Medical Center10-03-2023 Evaluation note* Encounter Date Diagnosis Assessment Notes Treatment Notes Treatment Clinical Notes Apr, Pancreatic mass (ICD-10 - K86.89) ncyclo Other [id number] Hospital Discharge instructions Patient Education 04/17/2023 09:18:19 [...] under a microscope. This is called the [place] score and the total score can range from 6 10, indicating how likely it is that the cancer will spread (metastasize) to other parts of the body. The higher the score, the greater thelikelihood that the cancer will spread. [place] 6 or lower: This indicates that the cancer cells look similar to normal prostate cells (well differentiated). [place] 7: This indicates that the cancer cells look somewhat similar to normal prostate cells (moderately differentiated). [place] 8, 9, or 10: This indicates that [...] stress of having cancer. General instructions Take oehq-mhz-puspooy and prescription medicines only as told by your health care provider. If you have to go to the hospital, notify your cancer specialist (oncologist). Keep all follow-up visits. This is important. Where to find more information [place] [employer]: www.cancer.org [place] [employer]: www.cancer.net National Cancer [place]: www.cancer.gov Contact a health care provider if: [...] provider. Document Revised: 09/29/2021 Document Reviewed: 09/29/2021 [employer] Patient Education 2022 [employer]. Follow Up Care 10/28/2022 08:37:57 With:KAEL JAMES, Anthony Lee, URL Address: [facility] [address] [place] [address]- [phone] When: Unknown Comments:6 mos w/ PSA (and possible Lupron) [facility] 09-27-2023 Evaluation note* Encounter Date Diagnosis Assessment Notes Treatment Notes Treatment Clinical Notes Mar, Pancreatic mass (ICD-10 - K86.89) ncyclo Other 09-20-2023 Evaluation note* Encounter Date Diagnosis Assessment Notes Treatment Notes Treatment Clinical Notes Mar, Right upper quadrant abdominal pain (ICD-10 - R10.11) Diet instructions Lab to r/o acute infection, cholecystitis, pancreatitis GBUS vs CT abd based on results BLand, low fat diet Mar, Nausea (ICD-10 - R11.0) [place] , small/frequent feedings. Pepcid, Prilosec, Tums as [...] Microalbumin, Dilated eye exam and Foot exam ncyclo Other 08-30-2023 Evaluation note* Encounter Date Diagnosis [...] use, the patient reduces the risk for ME, CVA, HTN, cardiac dysrhythmias and sudden cardiac [...] exercise for 30 minutes, 3-5 times weekly. ncyclo Other 07-23-2023 Evaluation note* Encounter Date Diagnosis Assessment Notes Treatment Notes Treatment Clinical Notes Jan, Left bundle-branch block, unspecified (ICD-10 - I44.7) ncyclo Other 07-20-2023 History of Present illness Narrative* Marco A Esqueda MD - 02/02/2023 7:38 AM EDT PATIENT NAME: Pablo Felix DATE: 02/02/2023 PRIMARY CARE PHYSICIAN: Dr. Jamar Fall OTHER PHYSICIANS: Dr. Anthony Scruggs, Dr. Khan, [facility] Cardiology Portions of this [...] mg 24 hr tablet Take by mouth. Zihqgmklterxv-Fvlcicez-Zvroup (MULTIVITAMIN 50 PLUS) tab Take 1 tablet [...] Radical retropubic prostatectomy and bilateral pelvic lymphadenectomy ([facility]) Poorly differentiated prostatic adenocarcinoma of left [...] 10/25/2022 0.13 RADIOLOGY/OTHER STUDIES: 11/05/2021 CT chest/abdomen/pelvis ([facility]) Several sclerotic lesions consistent with metastatic disease. No evidence of visceral organ involvement or lymphadenopathy. 11/05/2021 Bone scan ([facility]) Multifocal osseous metastasis including the left femur at the lesser trochanter, right pubis symphysis, multiple ribs bilaterally. 01/22/2018 Nuclear bone scan ([facility]) New focal increased activity left frontal bone, left T8 vertebral body. 01/22/2018 MRI pelvis ([facility]) 4.5 cm area of T2 signal in the prostate bed. 07/24/2014 CT abdomen/pelvis ([facility] [place] Diffuse prostatic enlargement with indentation of the bladder base. Incidental 2.5 x 1 cm exophytic hypodense lesion adjacent to the pancreatic body. ASSESSMENT/PLAN: 1. Metastatic prostate cancer (HCC) - ICD9: 185, ICD10: C61 (primary diagnosis) The patient was diagnosed with early-stage high-grade prostate cancer in June 2014 (TRUS [id number]/02/2014). He underwent a radical prostatectomy on 11/05/2014. [...] suppressed at <12. Bone scan obtained at [facility] 11/05/2021 revealed multiple bone metastases. 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 Stable on current medications. [...] CC: Dr. Anthony Scruggs documented in this encounterSouthview Medical Center04-27-2023 History of Present illness Narrative* Christo Howard APRN.[employer] PL[employer]NER - 11/10/2022 10:00 AM EDT PATIENT NAME: Pablo Felix DATE: 11/10/2022 PRIMARY CARE PHYSICIAN: Dr. Jamar Fall OTHER PHYSICIANS: Dr. Anthony Scruggs, Dr. Khan, [facility] Cardiology Portions of this [...] mg 24 hr tablet Take by mouth. Kctbssjeenttt-Wodmqifd-Dggcid (MULTIVITAMIN 50 PLUS) tab Take 1 tablet [...] Radical retropubic prostatectomy and bilateral pelvic lymphadenectomy ([facility]) Poorly differentiated prostatic adenocarcinoma of left [...] PSA 0.13 RADIOLOGY/OTHER STUDIES: 11/05/2021 CT chest/abdomen/pelvis ([facility]) Several sclerotic lesions consistent with metastatic disease. No evidence of visceral organ involvement or lymphadenopathy. 11/05/2021 Bone scan ([facility]) Multifocal osseous metastasis including the left femur at the lesser trochanter, right pubis symphysis, multiple ribs bilaterally. 01/22/2018 Nuclear bone scan ([facility]) New focal increased activity left frontal bone, left T8 vertebral body. 01/22/2018 MRI pelvis ([facility]) 4.5 cm area of T2 signal in the prostate bed. 07/24/2014 CT abdomen/pelvis ([facility] [place] Diffuse prostatic enlargement with indentation of the bladder base. Incidental 2.5 x 1 cm exophytic hypodense lesion adjacent to the pancreatic body. ASSESSMENT/PLAN: 1. Metastatic prostate cancer (HCC) - ICD9: 185, ICD10: C61 (primary diagnosis) The patient was diagnosed with early-stage high-grade prostate cancer in June 2014 (TRUS [id number]/02/2014). He underwent a radical prostatectomy on 11/05/2014. Pathology consistent with stage IIIC (pT2b, N0, M0), [place] 5+4 equal 9. Postop the patient's PSA [...] suppressed at <12. Bone scan obtained at [facility] 11/05/2021 revealed multiple bone metastases. 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 Stable on current medications. [...] which included preparing to see the patient, ixvx-vs-gmql patient care, completing clinical documentation, obtaining and/or reviewing separately obtained history, performing a medically appropriate examination, counseling and educating the pat ient/family/caregiver, ordering medications, tests, or procedures, independently interpreting results (not separately reported), and communicating results to the patient/family/caregiver. documented in this encounterSouthview Medical Center03-03-2023 Evaluation note* Encounter Date Diagnosis [...] injection w/ Kenalog, may increase BS slightly ncyclo Other 02-24-2023 Evaluation note* Encounter Date Diagnosis [...] use, the patient reduces the risk for ME, CVA, HTN, cardiac dysrhythmias and sudden cardiac [...] Lupron along w/ additional oral chemotherapy from [facility] Oncology. Also receiving Boniva Aug, Other [...] reviewed and amended by provider signed below. ncyclo Other 01-26-2023 History of Present illness Narrative* Marco A Esqueda MD - 08/11/2022 7:42 AM EST PATIENT NAME: Pablo Felix DATE: 08/11/2022 PRIMARY CARE PHYSICIAN: Dr. Jamar Fall OTHER PHYSICIANS: Dr. Anthony Scruggs, Dr. Khan, [facility] Cardiology Portions of this [...] mg 24 hr tablet Take by mouth. Partorriqcwbo-Lqtvnhfp-Kxsmcj (MULTIVITAMIN 50 PLUS) tab Take 1 tablet [...] Radical retropubic prostatectomy and bilateral pelvic lymphadenectomy ([facility]) Poorly differentiated prostatic adenocarcinoma of left [...] 08/11/2022 PSA RADIOLOGY/OTHER STUDIES: 11/05/2021 CT chest/abdomen/pelvis ([facility]) Several sclerotic lesions consistent with metastatic disease. No evidence of visceral organ involvement or lymphadenopathy. 11/05/2021 Bone scan ([facility]) Multifocal osseous metastasis including the left femur at the lesser trochanter, right pubis symphysis, multiple ribs bilaterally. 01/22/2018 Nuclear bone scan ([facility]) New focal increased activity left frontal bone, left T8 vertebral body. 01/22/2018 MRI pelvis ([facility]) 4.5 cm area of T2 signal in the prostate bed. 07/24/2014 CT abdomen/pelvis ([facility] [place] Diffuse prostatic enlargement with indentation of the bladder base. Incidental 2.5 x 1 cm exophytic hypodense lesion adjacent to the pancreatic body. ASSESSMENT/PLAN: 1. Metastatic prostate cancer (HCC) - ICD9: 185, ICD10: C61 (primary diagnosis) The patient was diagnosed with early-stage high-grade prostate cancer in June 2014 (TRUS [id number]/02/2014). He underwent a radical prostatectomy on 11/05/2014. [...] suppressed at <12. Bone scan obtained at [facility] 11/05/2021 revealed multiple bone metastases. 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 Stable on current medications. [...] CC: Dr. Anthony Scruggs documented in this encounterSouthview Medical Center01-05-2023 NotePROCEDURE: XR SHOULDER LT 2V [...] Electronically authenticated by: CYNTHIA TORRES Date: 2022-07-21 15:46[facility]01-05-2023 Evaluation note* Encounter Date Diagnosis Assessment Notes Treatment Notes Treatment Clinical Notes Jul, Cervical spondylosis with radiculopathy (ICD-10 - M47.22) ROM exercises, heat/ice and Tylenol 1000mg tid. Initiated Tramadol w/ caution, no driving, may cause sedation. Jul, Acute pain of left shoulder (ICD-10 - M25.512) ROM exercises, Tylenol and Tramadol as needed. Jul, Annual physical exam (ICD-10 - Z00.00) ncyclo Other 10-28-2022 Hospital Discharge instructions Patient Education [...] who: Are older than age 65. Are -L[place]ian. Are obese. Have a family history of [...] cells. Follow these instructions at home: Take goat-tbg-vqpgirc and prescription medicines only as told by [...] 07/03/2006 Document Revised: 06/15/2018 Document Reviewed: 03/13/2017 [employer] Patient Education 2020 [employer]. Follow Up Care 11/08/2021 14:14:20 With:KAEL JAMES, Anthony Lee, URL Address: [address] [place] [phone]- When: Unknown [facility] 10-27-2022 Nurse Note* Sheela Toney - 05/12/2022 10:43 AM EDT AUA=2 documented in this encounterSouthview Medical Center10-27-2022 History of Present illness Narrative* Zach Khan MD - 05/12/2022 10:41 AM EDT Radiation Oncology - Follow Up Note PATIENT NAME: Pablo Felix PATIENT DIAGNOSIS: Prostate adenocarcinoma, initial clinical stage II, initial PSA 1.07, biopsy [place] score 9(4,5), s/p prostatectomy for 11/05/14 pathologic stage IIIC [id number], [place] 9 (5, 4) now with rising PSA [...] Each once daily. To test blood sugar Kmtraietvgfku-Emjlklqc-Wujcac (MULTIVITAMIN 50 PLUS) tab Take 1 tablet [...] s/p prostatectomy for 11/05/14 pathologic stage IIIC [id number], [place] 9 (5, 4) withrising PSA, subsequently [...] Zach Khan MD cc: Jamar Fall MD ([facility]) Portions of the above note extracted and edited from previous visit as well as active information included in the EMR. documented in this encounterSouthview Medical Center10-17-2022 Miscellaneous Notes* Telephone Encounter - Sheela Toney - 05/02/2022 10:48 AM EDT Patient coming in on 05/12/22 for follow up with labs. Please add lab orders. Thanks, Sheela ToneyRUSTY documented in this encounterSouthview Medical Center08-04-2022 History of Present illness Narrative* Marco A Esqueda MD - 02/17/2022 7:51 AM EDT PATIENT NAME: Pablo Felix DATE: 02/17/2022 PRIMARY CARE PHYSICIAN: Jamar Fall, OTHER PHYSICIANS: Dr. Anthony Scruggs, Dr. Khan, [facility] Cardiology Portions of this [...] Each once daily. To test blood sugar Xsogxmlllpqpq-Pkcwedgk-Ynixnp (MULTIVITAMIN 50 PLUS) tab Take 1 tablet [...] Radical retropubic prostatectomy and bilateral pelvic lymphadenectomy ([facility]) Poorly differentiated prostatic adenocarcinoma of left [...] PSA 0.14 RADIOLOGY/OTHER STUDIES: 11/05/2021 CT chest/abdomen/pelvis ([facility]) Several sclerotic lesions consistent with metastatic disease. No evidence of visceral organ involvement or lymphadenopathy. 11/05/2021 Bone scan ([facility]) Multifocal osseous metastasis including the left femur at the lesser trochanter, right pubis symphysis, multiple ribs bilaterally. 01/22/2018 Nuclear bone scan ([facility]) New focal increased activity left frontal bone, left T8 vertebral body. 01/22/2018 MRI pelvis ([facility]) 4.5 cm area of T2 signal in the prostate bed. 07/24/2014 CT abdomen/pelvis ([facility] [place] Diffuse prostatic enlargement with indentation of the bladder base. Incidental 2.5 x 1 cm exophytic hypodense lesion adjacent to the pancreatic body. ASSESSMENT/PLAN: 1. Metastatic prostate cancer (HCC) - ICD9: 185, ICD10: C61 (primary diagnosis) The patient was diagnosed with early-stage high-grade prostate cancer in June 2014 (TRUS [id number]/02/2014). He underwent a radical prostatectomy on 11/05/2014. Pathology consistent with stage IIIC (pT2b, N0, M0), [place] 5+4 equal 9. Postop the patient's PSA [...] at <12. Staging scans were obtained at [facility] on 11/05/2021. Bone scan revealed multiple [...] will receive his next Lupron per Dr. Scurggs May 2022. He will receive Xgeva today as scheduled. I will see him back in 3 months for follow-up and labs, at which time he will receive his next Xgeva injection. 2. Coronary artery disease - ICD9: 414.01, ICD10: I25.10 Status post CABG 08/17/2014 ([facility]). Stable on current medications. [...] CC: Dr. Anthony Scruggs documented in this encounterSouthview Medical Center05-23-2022 Miscellaneous Notes* Telephone Encounter - [...] that he has the phone number to [facility]. No additional questionsnoted. Clementine Aguilar RN documented in this encounterSouthview Medical Center04-28-2022 History of Present illness Narrative* Marco A Esqueda MD - 11/11/2021 7:42 AM EDT PATIENT NAME: Pablo Felix DATE: 11/11/2021 PRIMARY CARE PHYSICIAN: Jamar Fall DO OTHER PHYSICIANS: Dr. Anthony Scruggs, Dr. Khan, [facility] Cardiology Portions of this encounter note have been copied from my note from 10/28/2021 and has been updated where appropriate, and reflect my current medical decision making from today. CC: This is a 76 year old male with recently diagnosed metastatic prostate cancer, seen for scheduled follow-up. INTERIM HISTORY: Since the patient's initial visit here he underwent staging scans at [facility] on 11/05/2021. Bone scan revealed multiple [...] Each once daily. To test blood sugar Dbuhejpnnhytl-Zxyjivsj-Pcdcle (MULTIVITAMIN 50 PLUS) tab Take 1 tablet [...] Radical retropubic prostatectomy and bilateral pelvic lymphadenectomy ([facility]) Poorly differentiated prostatic adenocarcinoma of left [...] PSA 2.64 RADIOLOGY/OTHER STUDIES: 11/05/2021 CT chest/abdomen/pelvis ([facility]) Several sclerotic lesions consistent with metastatic disease. No evidence of visceral organ involvement or lymphadenopathy. 11/05/2021 Bone scan ([facility]) Multifocal osseous metastasis including the left femur at the lesser trochanter, right pubis symphysis, multiple ribs bilaterally. 01/22/2018 Nuclear bone scan ([facility]) New focal increased activity left frontal bone, left T8 vertebral body. 01/22/2018 MRI pelvis ([facility]) 4.5 cm area of T2 signal in the prostate bed. 07/24/2014 CT abdomen/pelvis ([facility] Diffuse prostatic enlargement with indentation of the bladder base. Incidental 2.5 x 1 cm exophytic hypodense lesion adjacent to the pancreatic body. ASSESSMENT/PLAN: 1. Metastatic prostate cancer (HCC) - ICD9: 185, ICD10: C61 (primary diagnosis) The patient was diagnosed with early-stage high-grade prostate cancer in June 2014 (TRUS [id number]/02/2014). He underwent a radical prostatectomy on 11/05/2014. [...] at <12. Staging scans were obtained at [facility] on 11/05/2021. Bone scan revealed multiple [...] ICD10: I25.10 Status post CABG 08/17/2014 ([facility]). Stable on current medications. [...] CC: Dr. Anthony Scruggs documented in this encounterSouthview Medical Center04-27-2022 Miscellaneous Notes* Telephone Encounter - Clementine Aguilar RN - 11/10/2021 3:03 PM EDT Pt reports his Enzalutamide was delivered. Will start this evening. Clementine Aguilar RN documented in this encounterSouthview Medical Center04-26-2022 Miscellaneous Notes* Telephone Encounter - Clementine Aguilar RN - 11/09/2021 2:31 PM EDT Per pt, his Enzalutamide is scheduled to arrive tomorrow morning. Patient started/will start taking Enzalutamide on 11/10/21. Clementine Aguilar RN documented in this encounterSouthview Medical Center04-25-2022 Hospital Discharge instructions Patient Education [...] who: Are older than age 65. Are -Lithuanian. Are obese. Have a family history of [...] cells. Follow these instructions at home: Take aywa-jwc-ymwybmx and prescription medicines only as told by [...] 07/03/2006 Document Revised: 06/15/2018 Document Reviewed: 03/13/2017 [employer] Patient Education 2020 [employer]. Follow Up Care 08/23/2021 13:26:07 With:KAEL JAMES, Anthony Lee, URL Address: [facility] [address] , [place] [address]- [phone] When:05/10/2022 [facility] 04-21-2022 Miscellaneous Notes* Telephone Encounter - Clementine Aguilar RN - 11/04/2021 2:53 PM EDT Pt would like to get the 4th Covid vaccine when it's due. Dr Esqueda notified and gives the ok to proceed when due. Pt notified and verbalizes understanding. Clementine Aguilar RN documented in this encounterSouthview Medical Center04-21-2022 History of Present illness Narrative* [...] Information handout: Enzalutamide, Specialty Pharmacy Information : [facility] phone numbers: Yes [...] minutes Clementine Aguilar RN * Aida Luo, [facility] - 11/04/2021 2:49 PM EDT Images from the original note were not included. [facility] Department of Pharmacy Oncology Pharmacy [...] Each once daily. To test blood sugar Hneplgjkhjyie-Keqhabxh-Rxxbqx (MULTIVITAMIN 50 PLUS) tab Take 1 tablet [...] of chemotherapy NA - Followed up with [facility] for delivery of Free Xtandi [...] patient Rubin Luo RPh documented in this encounterSouthview Medical Center04-21-2022 Miscellaneous Notes* Telephone Encounter - Aida Luo RP - 11/04/2021 10:54 AM EDT Confirmed with [employer] approval date 11/01/21 and that the specialty pharmacy, [facility] will reach out to Mr Felix 3-5 business days from approval date. If he does not hear from them by 11/10/21 we should call [facility] @ option 2. I informed Mr Felix of this, he has an appt 11/12/21 and said if he has not heard from them by then he will get their phone number from us. Rubin Luo RPh documented in this encounterDeborah Ville [address]-19-2022 Miscellaneous Notes* Telephone Encounter - Jennifer Amaro [...] him know to be expecting this call. [facility] will call patient to set up delivery for all fills. I do not see where he has had chemo education yet. Alba does he need to be set up with you? Thanks Rubin Luo RPh * Telephone Encounter - Andreina Castillo RPh - 11/01/2021 10:55 AM EDT Patient called today. We completed a conference call with [email or web address] - they were ableto obtain consent and [...] We will proceed free drug application through [email or web address] Pharmacy to reach out to patient 10/29/2021 to notify. Brina Wang RPh * Telephone Encounter - Brina Wang RPh - 10/28/2021 3:08 PM EDT Ambulatory Pharmacy Prior Authorization Note Provider Intervention Required?: No- Pharmacy completed on your behalf. Drug: Xtandi Cover My Meds Carter: [id number] Determination: Approved Prior Authorization/Case #: [id number] Prior Authorization Expiration: 10/28/2022 Time to PA Submission in CMM: 15 min Time to PA Determination in CMM: Same day Additional Information: Co-Pay $3,111.12 For questions relating to this submission, please contact [facility] at [phone] documented in [facility] Miscellaneous Notes* Telephone Encounter - Zohra Avila PA-C - 11/02/2021 12:00 PM EDT CBC and CMP orders placed Zohra Avila PA-C * Telephone Encounter - Katie Rosen MA - 11/02/2021 11:57 AM EDT Patient has an appt on 11/11/21. Would you like labs, if so place orders. Katie Rosen MA documented in this encounterSouth[facility] Center04-18-2022 Miscellaneous Notes* Telephone Encounter - [...] assistance program. Thanks, BRM documented in this encounterSouthview [facility] Center04-14-2022 Miscellaneous Notes* Telephone Encounter - Clementine Aguilar RN - 10/28/2021 1:12 PM EDT Voicemail message received from Sandra @ [facility]. Reports the pt's 1st dose of Lupron was given on 02/12/2018. Dr Esqueda notified. Clementine Aguilar RN * Telephone Encounter - Clementine Aguilar RN - 10/28/2021 12:[address] Esqueda requests that we contact Dr Scruggs' office for pt's Lupron start date. Call placed to [facility]. No answer. Message left requesting call back. Clementine Aguilar RN documented in this encounterSouthview Medical Center04-14-2022 Miscellaneous Notes* Telephone Encounter - Clementine Aguilar RN - 10/28/2021 1:12 PM EDT This encounter was opened in error. [email or web address]@ documented in this encounterSouthview Medical Center04-11-2022 Miscellaneous Notes* Telephone Encounter - Christo Howard APRN.CNP - 10/25/2021 4:05 PM EDT Hold off for now. Christo Howard APRN.ALEXA * Telephone Encounter - Katie Rosen MA - 10/25/2021 11:01 AM EDT If patient needs labs, please sign/place orders for 10/28/21. Thanks. Katie Rosen MA documented in this encounterSouthview [facility] Center01-01-2015 Evaluation note* Diagnosis Onset Date Resolution Status ASHD (arteriosclerotic heart disease) acute Cervical spondylosis acute Essential hypertension acute Hypercholesterolemia acute Malignant neoplasm of prostate July 17, 2014 acute Nonrheumatic aortic valve stenosis acute GRADY (obstructive sleep apnea) acute Type 2 diabetes mellitus with hyperglycemia acute [facility] Work Phone: Evaluation + Plan note Future Appointments Appointment Date:05/13/2022 08:45:00 AM Scheduled Provider:Anthony SCRUGGS MD Location:[facility] Appointment Type:URO Office Visit Diagnostic Tests Pending * PSA Total 11/08/21 Future Scheduled Tests Laboratory* Basic Metabolic Panel 09/20/21 [facility] evaluation + Plan note Future Appointments Appointment Date:10/28/2022 08:00:00 AM Scheduled Provider:Anthony SCRUGGS MD Location:[facility] Appointment Type:URO Office Visit Diagnostic Tests Pending * PSA Total 09/14/22 Future Scheduled Tests Laboratory* Basic Metabolic Panel 09/20/21 [facility] evaluation + Plan note Future Appointments Appointment Date:10/20/2023 08:45:00 AM Scheduled Provider:Anthony SCRUGGS MD Location:[facility] Appointment Type:URO Office Visit Diagnostic Tests Pending * PSA Total 04/17/23 [facility] evaluation + Plan note Future Appointments Appointment Date:04/19/2024 08:00:00 AM Scheduled Provider:Anthony SCRUGGS MD Location:[facility] Appointment Type:URO Office Visit Diagnostic Tests Pending * PSA Total 02/15/24 [facility] evaluation + Plan note Future Appointments Appointment Date:10/07/2024 09:15:00 AM Scheduled Provider:Anthony SCRUGGS MD Location:[facility] Appointment Type:URO Office Visit Diagnostic Tests Pending * PSA Total 08/17/24 [facility] evaluation note* Diagnosis OPENED IN ERROR- [...] and bone marrow 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 pectoris, unspecified vessel or lesion type Essential hypertension Unspecified essential hypertension Type 2 diabetes mellitus without complication, without long-term current use of insulin (HCC) [facility] [employer] [employer] Other Evaluation note* Diagnosis Malignant neoplasm of prostate (HCC)- Primary Malignant neoplasm of prostate 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 pectoris, unspecified vessel or lesion type Essential hypertension Unspecified essential hypertension Type 2 diabetes mellitus without complication, without long-term current use of insulin (HCC) documented [facility]* Diagnosis Malignant neoplasm of prostate (HCC)- Primary Malignant neoplasm of prostate [facility] Diagnosis Malignant neoplasm of prostate (HCC)- Primary Malignant neoplasm of prostate [facility]* Diagnosis Malignant neoplasm of prostate (HCC)- Primary Malignant neoplasm of prostate 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 pectoris, unspecified vessel or lesion type Essential hypertension Unspecified essential hypertension Type 2 diabetes mellitus without complication, without long-term current use of insulin (HCC) documented in this encounter [facility]* Diagnosis Neoplasm of unspecified behavior of bone, soft tissue, and skin Actinic keratosis [facility]* Diagnosis Malignant neoplasm of prostate (HCC)- Primary Malignant neoplasm of prostate [facility]* Diagnosis Malignant neoplasm of prostate (HCC)- Primary Malignant neoplasm of prostate Essential hypertension Unspecified essential hypertension 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 pectoris, unspecified vessel or lesion type Type 2 diabetes mellitus without complication, without long-term current use of insulin (HCC) Lesion of skin of right ear Abdominal discomfort Abdominal pain, unspecified site [facility]* Diagnosis Onset Date Resolution Status Cervical spondylosis acute Mass of skin of left shoulder acute Primary osteoarthritis, right shoulder acute Shoulder pain, right acute Neck pain noneactive ASHD (arteriosclerotic heart disease) acute Essential hypertension acute Hypercholesterolemia acute Malignant neoplasm of prostate July 17, 2014 acute Nonrheumatic aortic valve stenosis acute GRADY (obstructive sleep apnea) acute Type 2 diabetes mellitus with hyperglycemia acute [facility] Work Phone: Evaluation note* Diagnosis Malignant neoplasm of prostate (HCC)- Primary Malignant neoplasm of prostate documented [facility] this encounter [facility]* Diagnosis Malignant neoplasm of prostate (HCC)- Primary Malignant neoplasm of prostate documented [facility] this encounter [facility]* Diagnosis Malignant neoplasm of prostate (HCC)- Primary Malignant neoplasm of prostate [facility]* Diagnosis Malignant neoplasm of prostate (HCC)- Primary Malignant neoplasm of prostate [facility]* Diagnosis Malignant neoplasm of prostate (HCC)- Primary Malignant neoplasm of prostate Essential hypertension Unspecified essential hypertension 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 pectoris, unspecified vessel or lesion type Type 2 diabetes mellitus without complication, without long-term current use of insulin (HCC) documented in this encounter [facility]* Diagnosis Malignant neoplasm of prostate (HCC)- Primary Malignant neoplasm of prostate documented in this encounter [facility] general Narrative - Reported* Type [...] [place] 08/2015 Hospitalization History see surgical hx ncyclo Other History general Narrative - Reported* Type [...] [place] 08/2015 Hospitalization History see surgical hx ncyclo Other Hospital course Narrative No data available for this section [facility] SpeechTrans progress note No data available for this section [facility] Medications Administered Section Inactive Administered Medications - [...] To Contact Diagnoses Actinic keratosis 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, 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 [address] [place] [address] Referral ID Status Reason Start Date Expiration Date V isits Requested Visits Authorized [id number] Pending Review 1 1 Reason *FU 06/06 Right fr ontal sinus mass and cerumen impaction Diagnosis 1 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) Diagnosis 2 Impacted cerumen of right ear (H61.21) Referral Organization [facility] Referring Provider First Name Jamar Referring Provider Last Name Juan David Referring Provider Specialty Internal Me dicine Referred Organization [facility] Referred Provider Emelina Villagomez Referred Address ,[place], [place],[address] Referred Provider Specialty Ear, Nose an d [...] or prosecute any alcohol or drug abuse patient.[facility] CenterIn the event this information is protected by the Federal Confidentiality of Alcohol and Drug Abuse Patient Records regulations: The Federal rules restrict any use of the information to criminally investigate or prosecute any alcohol or drug abuse patient.[facility] CenterIn the event this information is protected by the Federal Confidentiality of Alcohol and Drug Abuse Patient Records regulations: The Federal rules restrict any use of the information to criminally investigate or prosecute any alcohol or drug abuse patient.[facility] CenterIn the event this information is protected by the Federal Confidentiality of Alcohol and Drug Abuse Patient Records regulations: The Federal rules restrict any use of the information to criminally investigate or prosecute any alcohol or drug abuse patient.[facility] CenterIn the event this information is protected by the Federal Confidentiality of Alcohol and Drug Abuse Patient Records regulations: The Federal rules restrict any use of the information to criminally investigate or prosecute any alcohol or drug abuse patient.[facility] CenterIn the event this information is protected by the Federal Confidentiality of Alcohol and Drug Abuse Patient Records regulations: The Federal rules restrict any use of the information to criminally investigate or prosecute any alcohol or drug abuse patient.[facility] CenterIn the event this information is protected by the Federal Confidentiality of Alcohol and Drug Abuse Patient Records regulations: The Federal rules restrict any use of the information to criminally investigate or prosecute any alcohol or drug abuse patient.[facility] CenterIn the event this information is protected by the Federal Confidentiality of Alcohol and Drug Abuse Patient Records regulations: The Federal rules restrict any use of the information to criminally investigate or prosecute any alcohol or drug abuse patient.[facility] CenterIn the event this information is protected by the Federal Confidentiality of Alcohol and Drug Abuse Patient Records regulations: The Federal rules restrict any use of the information to criminally investigate or prosecute any alcohol or drug abuse patient.[facility] CenterIn the event this information is protected by the Federal Confidentiality of Alcohol and Drug Abuse Patient Records regulations: The Federal rules restrict any use of the information to criminally investigate or prosecute any alcohol or drug abuse patient.[facility] CenterIn the event this information is protected by the Federal Confidentiality of Alcohol and Drug Abuse Patient Records regulations: The Federal rules restrict any use of the information to criminally investigate or prosecute any alcohol or drug abuse patient.[facility] CenterIn the event this information is protected by the Federal Confidentiality of Alcohol and Drug Abuse Patient Records regulations: The Federal rules restrict any use of the information to criminally investigate or prosecute any alcohol or drug abuse patient.[facility] CenterIn the event this information is protected by the Federal Confidentiality of Alcohol and Drug Abuse Patient Records regulations: The Federal rules restrict any use of the information to criminally investigate or prosecute any alcohol or drug abuse patient.[facility] CenterIn the event this information is protected by the Federal Confidentiality of Alcohol and Drug Abuse Patient Records regulations: The Federal rules restrict any use of the information to criminally investigate or prosecute any alcohol or drug abuse patient.[facility] CenterIn the event this information is protected by the Federal Confidentiality of Alcohol and Drug Abuse Patient Records regulations: The Federal rules restrict any use of the information to criminally investigate or prosecute any alcohol or drug abuse patient.[facility] CenterIn the event this information is protected by the Federal Confidentiality of Alcohol and Drug Abuse Patient Records regulations: The Federal rules restrict any use of the information to criminally investigate or prosecute any alcohol or drug abuse patient.[facility] CenterIn the event this information is protected by the Federal Confidentiality of Alcohol and Drug Abuse Patient Records regulations: The Federal rules restrict any use of the information to criminally investigate or prosecute any alcohol or drug abuse patient.[facility] CenterIn the event this information is protected by the Federal Confidentiality of Alcohol and Drug Abuse Patient Records regulations: The Federal rules restrict any use of the information to criminally investigate or prosecute any alcohol or drug abuse patient.[facility] CenterIn the event this information is protected by the Federal Confidentiality of Alcohol and Drug Abuse Patient Records regulations: The Federal rules restrict any use of the information to criminally investigate or prosecute any alcohol or drug abuse patient.[facility] CenterIn the event this information is protected by the Federal Confidentiality of Alcohol and Drug Abuse Patient Records regulations: The Federal rules restrict any use of the information to criminally investigate or prosecute any alcohol or drug abuse patient.[facility] CenterIn the event this information is protected by the Federal Confidentiality of Alcohol and Drug Abuse Patient Records regulations: The Federal rules restrict any use of the information to criminally investigate or prosecute any alcohol or drug abuse patient.[facility] CenterIn the event this information is protected by the Federal Confidentiality of Alcohol and Drug Abuse Patient Records regulations: The Federal rules restrict any use of the information to criminally investigate or prosecute any alcohol or drug abuse patient.[facility] CenterIn the event this information is protected by the Federal Confidentiality of Alcohol and Drug Abuse Patient Records regulations: The Federal rules restrict any use of the information to criminally investigate or prosecute any alcohol or drug abuse patient.[facility] CenterIn the event this information is protected by the Federal Confidentiality of Alcohol and Drug Abuse Patient Records regulations: The Federal rules restrict any use of the information to criminally investigate or prosecute any alcohol or drug abuse patient.[facility] CenterIn the event this information is protected by the Federal Confidentiality of Alcohol and Drug Abuse Patient Records regulations: The Federal rules restrict any use of the information to criminally investigate or prosecute any alcohol or drug abuse patient.[facility] CenterIn the event this information is protected by the Federal Confidentiality of Alcohol and Drug Abuse Patient Records regulations: The Federal rules restrict any use of the information to criminally investigate or prosecute any alcohol or drug abuse patient.[facility] CenterIn the event this information is protected by the Federal Confidentiality of Alcohol and Drug Abuse Patient Records regulations: The Federal rules restrict any use of the information to criminally investigate or prosecute any alcohol or drug abuse patient.[facility] CenterIn the event this information is protected by the Federal Confidentiality of Alcohol and Drug Abuse Patient Records regulations: The Federal rules restrict any use of the information to criminally investigate or prosecute any alcohol or drug abuse patient.[facility] CenterIn the event this information is protected by the Federal Confidentiality of Alcohol and Drug Abuse Patient Records regulations: The Federal rules restrict any use of the information to criminally investigate or prosecute any alcohol or drug abuse patient.[facility] CenterIn the event this information is protected by the Federal Confidentiality of Alcohol and Drug Abuse Patient Records regulations: The Federal rules restrict any use of the information to criminally investigate or prosecute any alcohol or drug abuse patient.[facility] CenterIn the event this information is protected by the Federal Confidentiality of Alcohol and Drug Abuse Patient Records regulations: The Federal rules restrict any use of the information to criminally investigate or prosecute any alcohol or drug abuse patient.[facility] CenterIn the event this information is protected by the Federal Confidentiality of Alcohol and Drug Abuse Patient Records regulations: The Federal rules restrict any use of the information to criminally investigate or prosecute any alcohol or drug abuse patient.[facility] CenterIn the event this information is protected by the Federal Confidentiality of Alcohol and Drug Abuse Patient Records regulations: The Federal rules restrict any use of the information to criminally investigate or prosecute any alcohol or drug abuse patient.[facility] CenterIn the event this information is protected by the Federal Confidentiality of Alcohol and Drug Abuse Patient Records regulations: The Federal rules restrict any use of the information to criminally investigate or prosecute any alcohol or drug abuse patient.[facility] CenterIn the event this information is protected by the Federal Confidentiality of Alcohol and Drug Abuse Patient Records regulations: The Federal rules restrict any use of the information to criminally investigate or prosecute any alcohol or drug abuse patient.[facility] CenterIn the event this information is protected by the Federal Confidentiality of Alcohol and Drug Abuse Patient Records regulations: The Federal rules restrict any use of the information to criminally investigate or prosecute any alcohol or drug abuse patient.[facility] CenterIn the event this information is protected by the Federal Confidentiality of Alcohol and Drug Abuse Patient Records regulations: The Federal rules restrict any use of the information to criminally investigate or prosecute any alcohol or drug abuse patient.[facility] CenterIn the event this information is protected by the Federal Confidentiality of Alcohol and Drug Abuse Patient Records regulations: The Federal rules restrict any use of the information to criminally investigate or prosecute any alcohol or drug abuse patient.[facility] CenterIn the event this information is protected by the Federal Confidentiality of Alcohol and Drug Abuse Patient Records regulations: The Federal rules restrict any use of the information to criminally investigate or prosecute any alcohol or drug abuse patient.[facility] Care Teams (unrecognized sec tion [...] September 02, 2024 End: September 02, 2024 [employer]pper [employer]rier Relationship Specialty Start Date End Date Jamar Fall DO PCP - General Internal Medicine 08/04/14 [employer] Relationship Specialty Start Date End Date Jamar Fall DO PCP - General Internal Medicine 08/04/14 [employer] Relationship Specialty Start Date End Date Jamar Fall DO PCP - General Internal Medicine 08/04/14 [employer] Relationship Specialty Start Date End Date Jamar Fall DO PCP - General Internal Medicine 08/04/14 Marco A Esqueda MD [address] [place] [address] Physician Hematology/Oncology 11/02/21 Christo Howard, EXECUTIVE SECRETARY.[employer] SUPPORT PLANNER [address] [place] [address] Nurse Practitioner Hematology/Oncology 11/02/21 Clementine Aguilar, RN [address] [place] [address] Specialty Hand Tire Trimmer Hematology/Oncology 11/02/21 [employer]pper And Drier Relationship Specialty Start Date End Date Jamar Fall, DO PCP - General Internal Medicine 08/04/14 Marco A Esqueda MD [address] [place] [address] Physician Hematology/Oncology 11/02/21 Christo Howard, EXECUTIVE SECRETARY.[employer]VAL [employer]FACE FIRE SUPPORT PLANNER [address] [place] [address] Nurse Practitioner Hematology/Oncology 11/02/21 Clementine Aguilar, RN [address] [place] [address] Specialty Hand Tire Trimmer Hematology/Oncology 11/02/21 [employer]pper And Drier Relationship Specialty Start Date End Date Jamar Fall, DO PCP - General Internal Medicine 08/04/14 Marco A Esqueda MD [address] [place] [address] Physician Hematology/Oncology 11/02/21 Christo Howard, EXECUTIVE SECRETARY.[employer]VAL [employer]FACE FIRE SUPPORT PLANNER [address] [place] [address] Nurse Practitioner Hematology/Oncology 11/02/21 Clementine Aguilar, RN [address] [place] [address] Specialty Hand Tire Trimmer Hematology/Oncology 11/02/21 Dipper And Drier Relationship Specialty Start Date End Date Jamar Fall, DO PCP - General Internal Medicine 08/04/14 Marco A Esqueda MD [address] [place] [address] Physician Hematology/Oncology 11/02/21 Christo Howard, EXECUTIVE SECRETARY.[facility] [address] [place] [address] Nurse Practitioner Hematology/Oncology 11/02/21 Clementine Aguilar, ANITHA [address] [place] [address] Specialty Hand Tire Trimmer Hematology/Oncology 11/02/21 Dipper And Drier Relationship Specialty Start Date End Date Jamar Fall, DO PCP - General Internal Medicine 08/04/14 Marco A Esqueda MD [address] [place] [address] Physician Hematology/Oncology 11/02/21 Christo Howard, EXECUTIVE SECRETARY.[employer]VAL SURFACE FI[employer] SUPPORT PLANNER [address] [place] [address] Nurse Practitioner Hematology/Oncology 11/02/21 Clementine Aguilar, ANITHA [address] [place] [address] Specialty Hand Tire Trimmer Hematology/Oncology 11/02/21 [employer]pper And Drier Relationship Specialty Start Date End Date Jamar Fall, DO PCP - General Internal Medicine 08/04/14 Marco A Esqueda MD [address] [place] [address] Physician Hematology/Oncology 11/02/21 Christo Howard, EXECUTIVE SECRETARY.[employer] [address] [place] [address] Nurse Practitioner Hematology/Oncology 11/02/21 Clementine Aguilar, ANITHA [address] [place] [address] Specialty Hand Tire Trimmer Hematology/Oncology 11/02/21 Dipper And Drier Relationship Specialty Start Date End Date Jamar Fall, DO PCP - General Internal Medicine 08/04/14 Marco A Esqueda MD [address] [place] [address] Physician Hematology/Oncology 11/02/21 Christo Howard, EXECUTIVE SECRETARY.[employer] SUPPORT PLANNER [address] [place] [address] Nurse Practitioner Hematology/Oncology 11/02/21 Clementine Aguilar, ANITHA [address] [place] [address] [place] [address] Specialty Hand Tire Trimmer Hematology/Oncology 11/02/21 Dipper And Drier Relationship Specialty Start Date End Date Jamar Fall, DO PCP - General Internal Medicine 08/04/14 Marco A Esqueda MD [address] [facility] [place] [address] Physician Hematology/Oncology 11/02/21 Christo Howard, EXECUTIVE SECRETARY.[employer] SU[employer] PLANNER [address] [facility] [place] [address] Nurse Practitioner Hematology/Oncology 11/02/21 Clementine Aguilar, RN [address] [address] [address] [place], [place] [id number] Specialty Hand Tire Trimmer Hematology/Oncology 11/02/21 Dipper And Drier Relationship Specialty Start Date End Date Jamar Fall, DO PCP - General Internal Medicine 08/04/14 Marco A Esqueda MD [address] [facility] [address] [address] [place], [place] [address] Physician Hematology/Oncology 11/02/21 Christo Howard, EXECUTIVE SECRETARY.[employer] SUPPORT PLANNER [address] [facility] [address] Nurse Practitioner Hematology/Oncology 11/02/21 Clementine Aguilar, ANITHA [address] [facility] [address] Specialty Hand Tire Trimmer Hematology/Oncology 11/02/21 Dipper And Drier Relationship Specialty Start Date End Date Jamar Fall, DO PCP - General Internal Medicine 08/04/14 Marco A Esqueda MD [address] [facility] [place] [address] Physician Hematology/Oncology 11/02/21 Christo Howard, EXECUTIVE SECRETARY.[employer] SUPPORT PLANNER [address] [place] [address] Nurse Practitioner Hematology/Oncology 11/02/21 Clementine Aguilar, RN [address] [address] Specialty Hand Tire Trimmer Hematology/Oncology 11/02/21 Dipper And Drier Relationship Specialty Start Date End Date Jamar Fall, DO PCP - General Internal Medicine 08/04/14 Marco A Esqueda MD [address] [facility] [place] [address] Physician Hematology/Oncology 11/02/21 Christo Howard, EXECUTIVE SECRETARY.[facility] [address] [place] [address] Nurse Practitioner Hematology/Oncology 11/02/21 Clementine Aguilar, ANITHA [address] [address] Specialty Hand Tire Trimmer Hematology/Oncology 11/02/21 Dipper And Drier Relationship Specialty Start Date End Date Jamar Fall, DO PCP - General Internal Medicine 08/04/14 Marco A Esqueda MD [address] [facility] [address] Physician Hematology/Oncology 11/02/21 Christo Howard, EXECUTIVE SECRETARY.[employer] SUPPORT PLANNER [address] [facility] [address] Nurse Practitioner Hematology/Oncology 11/02/21 Clementine Aguilar, ANITHA [address] [place] [address] Specialty Hand Tire Trimmer Hematology/Oncology 11/02/21 Dipper And Drier Relationship Specialty Start Date End Date Jamar Fall, DO PCP - General Internal Medicine 08/04/14 Marco A Esqueda MD [address] [facility] [address] Physician Hematology/Oncology 11/02/21 Christo Howard, EXECUTIVE SECRETARY.[employer] SUPPORT PLANNER [address] [facility] [address] Nurse Practitioner Hematology/Oncology 11/02/21 Clementine Aguilar, ANITHA [address] [facility] [address] Specialty Hand Tire Trimmer Hematology/Oncology 11/02/21 Dipper And Drier Relationship Specialty Start Date End Date Jamar Fall DO PCP - General Internal Medicine 08/04/14 Marco A Esqueda MD [address] [place] [address] Physician Hematology/Oncology 11/02/21 Christo Howard, EXECUTIVE SECRETARY.[employer] SUPPORT PLANNER [address] [place] [address] Nurse Practitioner Hematology/Oncology 11/02/21 Clementine Aguilar, ANITHA [address] [facility] [place] [address] Specialty Hand Tire Trimmer Hematology/Oncology 11/02/21 Dipper And Drier Relationship Specialty Start Date End Date Jamar Fall DO PCP - General Internal Medicine 08/04/14 Marco A Esqueda MD [address] [place] [address] Physician Hematology/Oncology 11/02/21 Christo Howard, EXECUTIVE SECRETARY.[employer] SUPPORT PLANNER [address] [facility] [place] [address] Nurse Practitioner Hematology/Oncology 11/02/21 Clementine Aguilar, ANITHA [address] [facility] [place] [address] Specialty Hand Tire Trimmer Hematology/Oncology 11/02/21 Dipper And Drier Relationship Specialty Start Date End Date Jamar Fall DO PCP - General Internal Medicine 08/04/14 Marco A Esqueda MD [address] [facility] [place] [address] Physician Hematology/Oncology 11/02/21 Christo Howard, EXECUTIVE SECRETARY.[employer] SU[employer] PLANNER [address] [facility] [place] [address] Nurse Practitioner Hematology/Oncology 11/02/21 Clementine Aguilar, ANITHA [address] [facility] [address] Specialty Hand Tire Trimmer Hematology/Oncology 11/02/21 Dipper And Drier Relationship Specialty Start Date End Date Jamar Fall DO PCP - General Internal Medicine 08/04/14 Marco A Esqueda MD [address] [facility] [address] [address] Physician Hematology/Oncology 11/02/21 Christo Howard, EXECUTIVE SECRETARY.[employer] SUPPORT PLANNER [address] [facility] [place] [address] Nurse Practitioner Hematology/Oncology 11/02/21 Clementine Aguilar, ANITHA [address] [facility] [place] [address] Specialty Hand Tire Trimmer Hematology/Oncology 11/02/21 Dipper And Drier Relationship Specialty Start Date End Date Jamar Fall MD [address] [place] [facility] [place] [address] PCP - General Internal Medicine 05/31/23 Dipper And Drier Relationship Specialty Start Date End Date Jamar Fall MD [address] [place] [address] PCP - General Internal Medicine 05/31/23 Dipper And Drier Relationship Specialty Start Date End Date Jamar Fall DO PCP - General Internal Medicine 08/04/14 Marco A Esqueda MD [address] [place] [address] [place] [address] Physician Hematology/Oncology 11/02/21 Christo Howard, EXECUTIVE SECRETARY.[employer] SUPPORT PLANNER [address] [facility] [place] [address] Nurse Practitioner Hematology/Oncology 11/02/21 Clementine Aguilar, ANITHA [address] [facility] [place] [address] Specialty Hand Tire Trimmer Hematology/Oncology 11/02/21 Dipper And Drier Relationship Specialty Start Date End Date Jamar Fall DO PCP - General Internal Medicine 08/04/14 Marco A Esqueda MD [address] [facility] [place] [address] Physician Hematology/Oncology 11/02/21 Christo oHward, EXECUTIVE SECRETARY.[employer] SU[employer] PLANNER [address] [place] [address] [place] [address] Nurse Practitioner Hematology/Oncology 11/02/21 Clementine Augilar, ANITHA [address] [facility] [address] [address] Specialty Hand Tire Trimmer Hematology/Oncology 11/02/21 Team Status: Active Member Role [...] November 23, 2023 End: November 23, 2023 Dipper And Drier Relationship Specialty Start Date End Date Jamar Fall DO PCP - General Internal Medicine 08/04/14 Marco A Esqueda MD [address] [facility] [address] Physician Hematology/Oncology 11/02/21 Christo Howard, EXECUTIVE SECRETARY.[employer] SUPPORT PLANNER [address] [facility] [address] Nurse Practitioner Hematology/Oncology 11/02/21 Clementine Aguilar, ANITHA [address] [facility] [address] [address] Specialty Hand Tire Trimmer Hematology/Oncology 11/02/21 Dipper And Drier Relationship Specialty Start Date End Date Jamar Fall DO PCP - General Internal Medicine 08/04/14 Marco A Esqueda MD [address] [facility] [place] [address] Physician Hematology/Oncology 11/02/21 Christo Howard, EXECUTIVE SECRETARY.[employer] SUPPORT PLANNER [address] [facility] [address] Nurse Practitioner Hematology/Oncology 11/02/21 Clementine Aguilar, ANITHA [address] [facility] [place] [address] Specialty Hand Tire Trimmer Hematology/Oncology 11/02/21 Team Status: Active Member Role Status Dates Jamar Fall DO Primary Care Provider Active Start: January 25, 2024 SAMAN Collins Attending Provider Active Start: January 25, 2024 Team Status: Inactive Member Role Status Dates Jamar Fall DO Primary Care Provide r, Attending Provider Active Start: March 26, 2024 End: March 26, 2024 Dipper And Drier Relationship Specialty Start Date End Date Jamar Fall DO PCP - General Internal Medicine 08/04/14 Marco A Esqueda MD [address] [place] [address] [place] [address] Physician Hematology/Oncology 11/02/21 Christo Howard, EXECUTIVE SECRETARY.[employer] FI[employer] SUPPORT PLANNER [address] [facility] [facility] [place] [address] Nurse Practitioner Hematology/Oncology 11/02/21 Clementine Aguilar, ANITHA [address] [facility] [facility] [place] [address] Specialty Hand Tire Trimmer Hematology/Oncology 11/02/21 Dipper And Drier Relationship Specialty Start Date End Date Jamar Fall DO PCP - General Internal Medicine 08/04/14 Marco A Esqueda MD [address] [place] [address] [place] [address] Physician Hematology/Oncology 11/02/21 Christo Howard, EXECUTIVE SECRETARY.[employer] SUPPORT PLANNER [address] [facility] [place] [address] Nurse Practitioner Hematology/Oncology 11/02/21 Clementine Aguilar, ANITHA [address] [facility] [facility] [place] [address] Specialty Hand Tire Trimmer Hematology/Oncology 11/02/21 Dipper And Drier Relationship Specialty Start Date End Date Jamar Fall DO PCP - General Internal Medicine 08/04/14 Marco A Esqueda MD [address] [facility] [place] [address] Physician Hematology/Oncology 11/02/21 Christo Howard, EXECUTIVE SECRETARY.[employer] SUPPORT PLANNER [address] [facility] [place] [address] Nurse Practitioner Hematology/Oncology 11/02/21 Clementine Aguilar RN [address] [facility] [place] [address] Specialty Hand Tire Trimmer Hematology/Oncology 11/02/21 Dipper And Drier Relationship Specialty Start Date End Date Jamar Fall DO PCP - General Internal Medicine 08/04/14 Marco A Esqueda MD [address] [facility] [place] [address] Physician Hematology/Oncology 11/02/21 Christo Howard, EXECUTIVE SECRETARY.[employer] FI[employer] SUPPORT PLANNER [address] [facility] [facility] [place] [address] Nurse Practitioner Hematology/Oncology 11/02/21 Clementine Aguilar, ANITHA [address] [facility] [place] [address] Specialty Hand Tire Trimmer Hematology/Oncology 11/02/21 Dipper And Drier Relationship Specialty Start Date End Date Juan David Jamar LopezDO PCP - General Internal Medicine 08/04/14 Marco A Esqueda MD [address] [place] [address] [place] [address] Physician Hematology/Oncology 11/02/21 Christo Howard APRN.[employer] SU[employer] PLANNER [address] [place] [address] [place] [address] Nurse Practitioner Hematology/Oncology 11/02/21 Clementine Aguilar, ANITHA [address] [place] [address] [place] [address] Specialty Hand Tire Trimmer Hematology/Oncology 11/02/21 Reason for Visit (unrecogniz ed [...] up Specialty Diagnoses / Procedures Referred By Contremy t Referred To Contact Diagnoses Malignant neoplasm of prostate (HCC) Procedures DENOSUMAB INJECTION Mraco A Esqueda MD [address] [place] [address] [place] [address] Himanshu Treat Ariella [address] [place] [address] Referral ID Status Reason Start Date Expiration Date V isits Requested Visits Authorized [id number] Authorized 11/11/2021 07/16/2022 99 99 Reason Comments Care Coordination Refill Question Reason Comments Prostate Cancer 1 month follow up Reason Comments Prostate Cancer Follow up Reason Comments Prostate Cancer 3 month follow up Reason Comments Prostate Cancer Reason Comments Prostate Cancer Follow up Reason Comments Suspicious Skin Lesion Specialty Diagnoses / Procedures Referred By Contremy t Referred To Contact Dermatology Diagnoses lesion of skin of R ear Marco A Esqueda MD [address] [facility] [place] [address] Lety Holguin MD [address] [place] [address] Referral ID Status Reason Start Date Expiration Date Visits Re quested Visits Authorized [id number] Closed 08/04/2023 01/31/2024 1 1 Reason Comments [...] content) DATE CREATED AUTHOR 10/31/2022 [facility] DATE CREATED AUTHOR AUTHOR'S ORGANIZ ATION 03/02/2024 [facility] EPIC DATE CREATED AUTHOR AUTHOR'S ORGANIZ ATION 04/02/2024 [facility] DATE CREATED AUTHOR AUTHOR'S ORGANIZ ATION 10/08/2024 [facility] DATE CREATED AUTHOR AUTHOR'S ORGANIZ ATION 10/27/2024 [facility] DATE CREATED AUTHOR AUTHOR'S ORGANIZ ATION 02/15/2025 [facility] Inactive Administered Medications - up to [...] BE BASED ON THE PRIMARY CLINICAL RECORDS. [facility] [employer] [facility]. provides no warranty or guarantee of the accuracy or completeness of information in this document.
[2025-02-17 09:20] VITALS: BP 126/58; BP 126/61; PULSE 54; PULSE 56; O2SAT 100; O2SAT 99
[2025-02-17] MEDS: DEXAMETHASONE SOD PHOS 10 MG/ML VIAL INJ (09:22)
[2025-02-17] MEDS: BUPIVACAINE HCL 0.25% PF 25 MG/10 ML VIAL INJ (09:22)
[2025-02-17] MEDS: IOHEXOL 240 MG/ML - 10 ML VIAL INJ (09:23)
[2025-02-17] MEDS: LIDOCAINE HCL 2% 400 MG/20 ML MDV INJ (09:23)
--- NOTE | 2025-02-17 09:23 | P.ON_ITS ---
Date of procedure: 02/17/25 Pre-op diagnosis: M54.12 Post-op diagnosis: same as pre-op Procedure: Procedure: Left C3-4, 4-5 transforaminal epidural steroid injection Medications: Bupivacaine 0.25% 1cc, lidocaine 2% 1cc, dexamethasone 10mg The patient was seen and examined in the preoperative holding area.? Informed consent was obtained and placed on the chart.? Patient was brought to the medical procedure unit and placed in the prone position where a timeout was completed verifying the correct patient, procedure site, position, and planned special equipment using sterile aseptic technique.? Under direct fluoroscopic visualization a 25-gauge Quincke tipped spinal needle was advanced to the designated neural foramen where contrast dye was injected to show adequate spread.? The needle was inserted at level left C3-4. There was no evidence of vascular or adverse uptake.? Epidural spread was appreciated.? The above- mentioned injectate was then placed in a 1.5 mL aliquot preceded by negative aspiration.? The needle was removed. The needle was inserted and the procedure repeated at level left C4-5.? The surgery site was covered.? Patient was taken to the postprocedural recovery area and monitored for an appropriate length of time before found suitable for discharge in the accompaniment of a responsible adult. Anesthesia: Local Surgeon: Nicole Herrera Pathology: none sent Condition: stable Disposition: no change
== END 2025-02-17 09:22 | disposition home or self-care (01) ==
LOC: SURGOUT 08:19
PROVIDERS: Visit Provider Anesthesiology
DX: M54.12 Radiculopathy, cervical region (principal); E11.8 Type 2 diabetes mellitus with unspecified complications; Z79.84 Long term (current) use of oral hypoglycemic drugs
CPT/HCPCS: 36415; 64479; 64480; 82948; J0665; J1100; Q9966

== ENCOUNTER 2025-02-27 08:03 | Outpatient (OUT) | payer MEDICARE, OTHER, SELFPAY ==
--- OUTSIDE RECORDS SUMMARY | 2024-12-27 04:23 | XMS_ITS | Continuity of Care Document ---
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 Name Role Phone [facility] Unavailable Unavailable Problems Combined list of problems [...] ORAL ACTIVE EMMANUELLE SOTO 2021 [facility] CALCIUM CITRATE 200MG/VITAM IN D 250UNT TAB TAKE TWO TABLETS BY MOUTH EVERY DAY ORAL ACTIVE EMMANUELLE SOTO 2021 [facility] ENZALUTAMID E 40MG TAB TAKE FOUR TABLETS BY MOUTH EVERY MORNING ORAL ACTIVE EMMANUELLE SOTO 2021 [facility] GLIMEPIRIDE 1MG TAB TAKE ONE-HALF TABLET BY MOUTH EVERY MORNING, WITH BREAKFAS T ORAL ACTIVE EMMANUELLE SOTO 2020 [facility] HYDROCHLORO THIAZIDE 12.5MG/JOEL NOPRIL 20MG TAB TAKE ONE TABLET BY MOUTH EVERY DAY ORAL ACTIVE HARVINDER TORIBIO 2014 [facility] METFORMIN HCL 1000MG TAB TAKE ONE TABLET BY MOUTH EVERY DAY ORAL ACTIVE EMMANUELLE SOTO 2020 [facility] METOPROLOL TARTRATE 25MG TAB TAKE [...] reactions to drug (finding) HIVES active 1 [facility] SIMVASTATIN Propensity to adverse reactions to drug (finding) active 2 [facility] Immunizations Combined list of available immunizations from the Department of Defense and Veterans Affairs facilities. Immunization Series Date Given Administered By Site Reaction Lot Number CVX Code Drug Business Intelligence Director Status Comments Source TDAP 2023 SANA FOX RIGHT DELTO ID [id number] 115 complet ed [place], Patient tolerated injection well. SHANE RANDLE INFLUENZA, HIGH-DOSE, TRIVALENT, PF 4 2023 135 complet ed HISTORICA L INFORMATI ON - FROM OTHER REGISTRY, [facility] INFLUENZA, HIGH-DOSE, QUADRIVALENT 3 2021 197 complet ed HISTORICA L INFORMATI ON - FROM OTHER REGISTRY, [facility] COVID-19 (MODERNA), MRNA, LNP-S, BIVALENT, PF, 50 MCG/0.5 ML OR 25MCG/0.25 ML DOSE 5 2021 229 complet ed HISTORICA L INFORMATI ON - FROM OTHER REGISTRY, [facility] COVID-19 (MODERNA), MRNA, LNP-S, PF, 100 MCG/0.5ML DOSE OR 50 MCG/0.25ML DOSE 4 2021 207 complet ed HISTORICA L INFORMATI ON - FROM OTHER REGISTRY, [facility] COVID-19 (MODERNA), MRNA, LNP-S, PF, 100 MCG/0.5ML DOSE OR 50 MCG/0.25ML DOSE 3 2020 207 complet ed HISTORICA L INFORMATI ON - FROM OTHER REGISTRY, [facility] INFLUENZA, UNSPECIFIED FORMULATION 2020 88 complet ed [facility] COVID-19 (MODERNA), MRNA, LNP-S, PF, 100 MCG/0.5ML DOSE OR 50 MCG/0.25ML DOSE 2 2020 207 complet ed HISTORICA L INFORMATI ON - FROM OTHER REGISTRY, [facility] COVID-19 (MODERNA), MRNA, LNP-S, PF, 100 MCG/0.5ML DOSE OR 50 MCG/0.25ML DOSE 1 2020 207 complet ed HISTORICA L INFORMATI ON - FROM OTHER REGISTRY, [facility] INFLUENZA (HISTORICAL) 2018 88 complet ed civ PCP (Dr. Jones) [facility] ZOSTER RECOMBINANT 2018 187 complet ed [facility] ZOSTER RECOMBINANT 2017 187 complet ed [facility] INFLUENZA (HISTORICAL) 2017 [address] complet [address] PCP [facility]. Jones in [facility] INFLUENZA, TRIVALENT, ADJUVANTED 2 2017 168 complet ed HISTORICA L INFORMATI ON - FROM OTHER REGISTRY, [facility] PNEUMOCOCCAL POLYSACCHARID E PPV23 2016 33 complet ed [facility] INFLUENZA, INJECTABLE, QUADRIVALENT, PRESERVATIVE FREE 2016 150 complet ed HISTORICA L INFORMATI ON - FROM OTHER REGISTRY, [facility] INFLUENZA, HIGH DOSE SEASONAL 1 2016 135 complet ed HISTORICA L INFORMATI ON - FROM OTHER REGISTRY, [facility] INFLUENZA (HISTORICAL) [address] Jones [facility] INFLUENZA (HISTORICAL) 2015 88 complet ed Private pcp [facility] INFLUENZA, SEASONAL, INJECTABLE, PRESERVATIVE FREE 2014 140 complet ed [facility] INFLUENZA, UNSPECIFIED FORMULATION 2014 88 complet ed [facility] PNEUMOCOCCAL CONJUGATE PCV 13 2014 133 complet ed see chart [facility] PNEUMOCOCCAL POLYSACCHARID E PPV23 2014 33 complet ed HISTORICA L INFORMATI ON - FROM OTHER REGISTRY, [facility] INFLUENZA, SEASONAL, INJECTABLE, PRESERVATIVE FREE 2013 140 complet ed [facility] INFLUENZA, UNSPECIFIED FORMULATION 2013 88 complet ed [facility] DTAP, UNSPECIFIED FORMULATION 2012 107 complet ed [facility] INFLUENZA, UNSPECIFIED FORMULATION 2012 88 complet ed [facility] ZOSTER LIVE 1 2011 121 complet ed HISTORICA L INFORMATI ON - FROM OTHER REGISTRY, [facility] INFLUENZA, UNSPECIFIED FORMULATION 2011 88 complet ed [facility] INFLUENZA, UNSPECIFIED FORMULATION 2010 88 complet ed [facility] PNEUMOCOCCAL, UNSPECIFIED FORMULATION 2009 109 complet ed [facility] PNEUMOCOCCAL POLYSACCHARID E PPV23 1 2009 33 complet ed HISTORICA L INFORMATI ON - FROM OTHER REGISTRY, [facility] INFLUENZA (HISTORICAL) 2009 88 complet [...] Apr 27, 2023 08:49 AM Reporting Lab: [place] [id number] Performing Lab: [place] [id number] LIPID PROFILE CHOLESTEROL [MASS/VOLUM E] IN [...] Apr 27, 2023 08:49 AM Reporting Lab: [place] [id number] Performing Lab: [place] [id number] [facility] LIPID PROFILE CHOLESTEROL IN LDL [MASS/VOLUM E] [...] Apr 27, 2023 08:49 AM Reporting Lab: [place] [id number] Performing Lab: [place] [id number] [place] [address] LIPID PROFILE CHOLESTEROL IN HDL [MASS/VOLUM E] [...] Apr 27, 2023 08:49 AM Reporting Lab: [place] [id number] Performing Lab: [place] [id number] [place] [address] LIPID PROFILE TRIGLYCERID E [MASS/VOLUM E] IN [...] Apr 27, 2023 08:49 AM Reporting Lab: [place] [id number] Performing Lab: [place] [id number] [facility] MAGNESIUM MAGNESIUM [MASS/VOLUM E] IN SERUM OR [...] Apr 27, 2023 08:49 AM Reporting Lab: [place] [id number] Performing Lab: [address] PROSTATE SPECIFIC ANTIGEN PROSTATE SPECIFIC AG [MASS/VOLUM E] IN SERUM OR PLASMA 0.16 ng/mL <4.00 - 4.00 04/15 Specimen Type: SERUM No comment entered. Ordering Provider: YAIMA SOTO Report Released Date/Time: Apr 27, 2023 08:49 AM Reporting Lab: [place] [id number] Performing Lab: [place] [id number] COMPREHEN SIVE METABOLIC PANEL ALBUMIN [MASS/VOLUM [...] Apr 27, 2023 08:49 AM Reporting Lab: [place] [id number] Performing Lab: [place] [id number] [facility] COMPREHEN SIVE METABOLIC PANEL ALKALINE PHOSPHATASE [ENZYMATIC [...] Apr 27, 2023 08:49 AM Reporting Lab: [place] [id number] Performing Lab: [place] [id number] [place] [address] COMPREHEN SIVE METABOLIC PANEL ALANINE AMINOTRANSF ERASE [...] Apr 27, 2023 08:49 AM Reporting Lab: [place] [id number] Performing Lab: [place] [id number] [place] [address] COMPREHEN SIVE METABOLIC PANEL ASPARTATE AMINOTRANSF ERASE [...] Apr 27, 2023 08:49 AM Reporting Lab: [place] [id number] Performing Lab: [place] [id number] [facility] COMPREHEN SIVE METABOLIC PANEL UREA NITROGEN [MASS/VOLUM [...] Apr 27, 2023 08:49 AM Reporting Lab: [place] [id number] Performing Lab: [place] [id number] [facility] COMPREHEN SIVE METABOLIC PANEL CALCIUM [MASS/VOLUM E] [...] Apr 27, 2023 08:49 AM Reporting Lab: [place] [address] Performing Lab: [address] COMPREHEN SIVE METABOLIC PANEL CREATININE [MASS/VOLUM [...] Apr 27, 2023 08:49 AM Reporting Lab: [place] [address] Performing Lab: [address] SIVE METABOLIC PANEL CARBON DIOXIDE, TOTAL [...] Apr 27, 2023 08:49 AM Reporting Lab: [place] [id number] Performing Lab: [place] [id number] [facility] COMPREHEN SIVE METABOLIC PANEL GLUCOSE [MASS/VOLUM E] [...] Apr 27, 2023 08:49 AM Reporting Lab: [place] [id number] Performing Lab: [place] [id number] [facility] COMPREHEN SIVE METABOLIC PANEL PROTEIN [MASS/VOLUM E] [...] Apr 27, 2023 08:49 AM Reporting Lab: [place] [id number] Performing Lab: [place] [id number] [facility] COMPREHEN SIVE METABOLIC PANEL SODIUM [MOLES/VOLU ME] [...] Apr 27, 2023 08:49 AM Reporting Lab: [place] [id number] Performing Lab: [place] [id number] [place] [address] COMPREHEN SIVE METABOLIC PANEL CHLORIDE [MOLES/VOLU ME] [...] Apr 27, 2023 08:49 AM Reporting Lab: [place] [id number] Performing Lab: [place] [id number] [facility] COMPREHEN SIVE METABOLIC PANEL BILIRUBIN.T OTAL [MASS/VOLUM [...] Apr 27, 2023 08:49 AM Reporting Lab: [place] [id number] Performing Lab: [place] [id number] [place] [address] COMPREHEN SIVE METABOLIC PANEL POTASSIUM [MOLES/VOLU ME] [...] Apr 27, 2023 08:49 AM Reporting Lab: [place] [id number] Performing Lab: [place] [id number] [place] [address] COMPREH SIVE METABOLIC PANEL ANION GAP IN [...] Apr 27, 2023 08:49 AM Reporting Lab: [address] [address] Performing Lab: [address] [address] [facility] COMPREHEN SIVE METABOLIC PANEL GLOMERULAR FILTRATION RATE/1.73 [...] Apr 27, 2023 08:49 AM Reporting Lab: [address] [address] Performing Lab: [address] [address] [facility] MICROALBU MIN/CREAT ININE RATIO PANEL MICROALBUMI N [MASS/VOLUM E] IN URINE 2 mg/dL <10 - 10 04/15 Specimen Type: URINE No comment entered. Ordering Provider: YAIMA SOTO Report Released Date/Time: Apr 27, 2023 08:49 AM Reporting Lab: [address] [address] Performing Lab: [address] [address] [facility] MICROALBU MIN/CREAT ININE RATIO PANEL CREATININE [MASS/VOLUM E] IN URINE 52.94 mg/dL 04/15 Specimen Type: URINE No comment entered. Ordering Provider: YAIMA SOTO Report Released Date/Time: Apr 27, 2023 08:49 AM Reporting Lab: [address] [address] Performing Lab: [address] [address] [facility] MICROALBU MIN/CREAT ININE RATIO PANEL MICROALBUMI N/CREATININ E [MASS RATIO] IN URINE 37.80 mg/g <19.9 - 19.9 04/15 H Specimen Type: URINE No comment entered. Ordering Provider: YAIMA SOTO Report Released Date/Time: Apr 27, 2023 08:49 AM Reporting Lab: [place] [id number] Performing Lab: [place] [id number] [place] [address] CBC LEUKOCYTES [#/VOLUME] IN BLOOD BY AUTOMATED COUNT 6.2 10*3/u L 3.6 - 11.0 04/15 Specimen Type: BLOOD No comment entered. Ordering Provider: YAIMA SOTO Report Released Date/Time: Apr 27, 2023 08:49 AM Reporting Lab: [place] [id number] Performing Lab: [place] [id number] CBC ERYTHROCYTE S [#/VOLUME] IN BLOOD BY AUTOMATED COUNT 3.72 10*6/u L 4.47 - 5.83 04/15 L Specimen Type: BLOOD No comment entered. Ordering Provider: YAIMA SOTO Report Released Date/Time: Apr 27, 2023 08:49 AM Reporting Lab: [place] [id number] Performing Lab: [place] [id number] CBC HEMOGLOBIN [MASS/VOLUM E] IN BLOOD 12.2 g/dL 13.6 - 17.4 04/15 L Specimen Type: BLOOD No comment entered. Ordering Provider: YAIMA SOTO Report Released Date/Time: Apr 27, 2023 08:49 AM Reporting Lab: [place] [id number] Performing Lab: [place] [id number] CBC HEMATOCRIT [VOLUME FRACTION] OF BLOOD BY AUTOMATED COUNT 35.8 40.0 - 51.0 04/15 L Specimen Type: BLOOD No comment entered. Ordering Provider: YAIMA SOTO Report Released Date/Time: Apr 27, 2023 08:49 AM Reporting Lab: [place] [id number] Performing Lab: [place] [id number] CBC MCV [ENTITIC VOLUME] BY AUTOMATED COUNT 96.3 fL 80.0 - 96.0 04/15 H Specimen Type: BLOOD No comment entered. Ordering Provider: YAIMA SOTO R Report Released Date/Time: Apr 27, 2023 08:49 AM Reporting Lab: [place] [id number] Performing Lab: [place] [id number] CBC MCH [ENTITIC MASS] BY AUTOMATED COUNT 32.8 pg 27.0 - 31.0 04/15 H Specimen Type: BLOOD No comment entered. Ordering Provider: YAIMA SOTO Report Released Date/Time: Apr 27, 2023 08:49 AM Reporting Lab: [place] [id number] Performing Lab: [place] [id number] CBC MCHC [MASS/VOLUM E] BY AUTOMATED COUNT 34.1 g/dL 31.5 - 36.5 04/15 Specimen Type: BLOOD No comment entered. Ordering Provider: YAIMA SOTO Report Released Date/Time: Apr 27, 2023 08:49 AM Reporting Lab: [place] [id number] Performing Lab: [place] [id number] CBC PLATELETS [#/VOLUME] IN BLOOD BY AUTOMATED COUNT 194 10*3/u L 150 - 400 04/15 Specimen Type: BLOOD No comment entered. Ordering Provider: YAIMA SOTO Report Released Date/Time: Apr 27, 2023 08:49 AM Reporting Lab: [place] [id number] Performing Lab: [place] [id number] [facility] CBC LYMPHOCYTES /100 LEUKOCYTES IN BLOOD BY AUTOMATED COUNT 30.0 21.0 - 51.0 04/15 Specimen Type: BLOOD No comment entered. Ordering Provider: YAIAM SOTO R Report Released Date/Time: Apr 27, 2023 08:49 AM Reporting Lab: [place] [id number] Performing Lab: [place] [id number] [place] [address] CBC MONOCYTES/1 00 LEUKOCYTES IN BLOOD BY AUTOMATED COUNT 10.3 4.0 - 8.0 04/15 H Specimen Type: BLOOD No comment entered. Ordering Provider: YAIMA SOTO R Report Released Date/Time: Apr 27, 2023 08:49 AM Reporting Lab: [place] [id number] Performing Lab: [place] [id number] CBC NUCLEATED ERYTHROCYTE S/100 LEUKOCYTES [RATIO] IN BLOOD BY MANUAL COUNT 0.0 /100{W BCs} 04/15 Specimen Type: BLOOD No comment entered. Ordering Provider: YAIMA SOTO R Report Released Date/Time: Apr 27, 2023 08:49 AM Reporting Lab: [place] [id number] Performing Lab: [place] [id number] CBC ERYTHROCYTE DISTRIBUTIO N WIDTH [RATIO] BY AUTOMATED COUNT 13.5 11.2 - 15.8 04/15 Specimen Type: BLOOD No comment entered. Ordering Provider: YAIMA SOTO Report Released Date/Time: Apr 27, 2023 08:49 AM Reporting Lab: [place] [id number] Performing Lab: [place] [id number] CBC NEUTROPHILS /100 LEUKOCYTES IN BLOOD BY AUTOMATED COUNT 51.3 54.0 - 78.0 04/15 L Specimen Type: BLOOD No comment entered. Ordering Provider: YAIMA SOTO R Report Released Date/Time: Apr 27, 2023 08:49 AM Reporting Lab: [place] [id number] Performing Lab: [place] [id number] [facility] CBC EOSINOPHILS /100 LEUKOCYTES IN BLOOD BY AUTOMATED COUNT 7.8 0.0 - 3.0 04/15 H Specimen Type: BLOOD No comment entered. Ordering Provider: YAIMA SOTO Report Released Date/Time: Apr 27, 2023 08:49 AM Reporting Lab: [place] [id number] Performing Lab: [place] [id number] CBC BASOPHILS/1 00 LEUKOCYTES IN BLOOD BY AUTOMATED COUNT 0.6 0.0 - 3.0 04/15 Specimen Type: BLOOD No comment entered. Ordering Provider: YAIMA SOTO Report Released Date/Time: Apr 27, 2023 08:49 AM Reporting Lab: [place] [id number] Performing Lab: [place] [id number] CBC LYMPHOCYTES [#/VOLUME] IN BLOOD BY AUTOMATED COUNT 1.8 10*3/u L 0.8 - 5.0 04/15 Specimen Type: BLOOD No comment entered. Ordering Provider: YAIMA SOTO Report Released Date/Time: Apr 27, 2023 08:49 AM Reporting Lab: [place] [id number] Performing Lab: [place] [id number] CBC NEUTROPHILS [#/VOLUME] IN BLOOD 3.2 10*3/u L 1.9 - 8.6 04/15 Specimen Type: BLOOD No comment entered. Ordering Provider: YAIMA SOTO Report Released Date/Time: Apr 27, 2023 08:49 AM Reporting Lab: [place] [id number] Performing Lab: [place] [id number] CBC BASOPHILS [#/VOLUME] IN BLOOD BY AUTOMATED COUNT 0.0 10*3/u L 0.0 - 0.3 04/15 Specimen Type: BLOOD No comment entered. Ordering Provider: YAIMA SOTO R Report Released Date/Time: Apr 27, 2023 08:49 AM Reporting Lab: [place] [id number] Performing Lab: [place] [id number] [facility] CBC MONOCYTES [#/VOLUME] IN BLOOD BY AUTOMATED COUNT 0.6 10*3/u L 0.1 - 0.9 04/15 Specimen Type: BLOOD No comment entered. Ordering Provider: YAIMA SOTO Report Released Date/Time: Apr 27, 2023 08:49 AM Reporting Lab: [place] [id number] Performing Lab: [place] [id number] [place] [address] CBC EOSINOPHILS [#/VOLUME] IN BLOOD BY AUTOMATED COUNT 0.5 10*3/u L 0.0 - 0.3 04/15 H Specimen Type: BLOOD No comment entered. Ordering Provider: YAIMA SOTO Report Released Date/Time: Apr 27, 2023 08:49 AM Reporting Lab: [place] [id number] Performing Lab: [place] [id number] [place] [address] CBC PLATELET MEAN VOLUME [ENTITIC VOLUME] IN BLOOD BY AUTOMATED COUNT 8.9 fL 7.4 - 11.4 04/15 Specimen Type: BLOOD No comment entered. Ordering Provider: YAIMA SOTO Report Released Date/Time: Apr 27, 2023 08:49 AM Reporting Lab: [place] [id number] Performing Lab: [place] [id number] LIPID PROFILE CHOLESTEROL [MASS/VOLUM E] IN [...] Apr 28, 2022 08:24 AM Reporting Lab: [address] [address] Performing Lab: [place] [id number] [facility] LIPID PROFILE CHOLESTEROL IN LDL [MASS/VOLUM E] [...] Apr 28, 2022 08:24 AM Reporting Lab: [place] [id number] Performing Lab: [place] [id number] LIPID PROFILE CHOLESTEROL IN HDL [MASS/VOLUM [...] Apr 28, 2022 08:24 AM Reporting Lab: [place] [id number] Performing Lab: [place] [id number] [facility] LIPID PROFILE TRIGLYCERID E [MASS/VOLUM E] IN SERUM OR PLASMA 118 mg/dL 0 - 149 04/20 Specimen Type: SERUM Comment: CREATININE eGFR was calculated using the CKD-EPI 2020 equation. TRIGLYCERID E REF RANGE: NORMAL <150 mg/dL BORDERLINE HIGH: 150-199 TRIGLYCERID E mg/dL HIGH: 200-499 mg/dL VERY HIGH: >=500 mg/dL Ordering Provider: YAIMA SOTO Report Released Date/Time: Apr 28, 2022 08:24 AM Reporting Lab: [address] [address] Performing Lab: [place] [id number] [place] [address] MAGNESIUM MAGNESIUM [MASS/VOLUM E] IN SERUM OR PLASMA 1.9 mg/dL 1.8 - 2.4 04/20 Specimen Type: SERUM Comment: CREATININE eGFR was calculated using the CKD-EPI 2020 equation. TRIGLYCERID E REF RANGE: NORMAL <150 mg/dL BORDERLINE HIGH: 150-199 TRIGLYCERID E mg/dL HIGH: 200-499 mg/dL VERY HIGH: >=500 mg/dL Ordering Provider: YAIMA SOTO R Report Released Date/Time: Apr 28, 2022 08:24 AM Reporting Lab: [place] [id number] Performing Lab: [place] [id number] COMPREHEN SIVE METABOLIC PANEL ALBUMIN [MASS/VOLUM [...] Apr 28, 2022 08:24 AM Reporting Lab: [place] [id number] Performing Lab: [place] [id number] COMPREHEN SIVE METABOLIC PANEL ALKALINE PHOSPHATASE [...] Apr 28, 2022 08:24 AM Reporting Lab: [place] [id number] Performing Lab: [place] [id number] COMPREHEN SIVE METABOLIC PANEL ALANINE AMINOTRANSF [...] Apr 28, 2022 08:24 AM Reporting Lab: [place] [id number] Performing Lab: [place] [id number] [place] [address] COMPREHEN SIVE METABOLIC PANEL ASPARTATE AMINOTRANSF ERASE [...] Apr 28, 2022 08:24 AM Reporting Lab: [place] [id number] Performing Lab: [place] [id number] [place] [address] COMPREHEN SIVE METABOLIC PANEL UREA NITROGEN [MASS/VOLUM [...] Apr 28, 2022 08:24 AM Reporting Lab: [place] [id number] Performing Lab: [place] [id number] [facility] COMPREHEN SIVE METABOLIC PANEL CALCIUM [MASS/VOLUM E] [...] Apr 28, 2022 08:24 AM Reporting Lab: [place] [id number] Performing Lab: [place] [id number] COMPREHEN SIVE METABOLIC PANEL CREATININE [MASS/VOLUM [...] Apr 28, 2022 08:24 AM Reporting Lab: [place] [id number] Performing Lab: [address] COMPREHEN SIVE METABOLIC PANEL CARBON DIOXIDE, [...] Apr 28, 2022 08:24 AM Reporting Lab: [place] [id number] Performing Lab: [place] [id number] [place] [address] COMPREHEN SIVE METABOLIC PANEL GLUCOSE [MASS/VOLUM E] [...] Apr 28, 2022 08:24 AM Reporting Lab: [place] [id number] Performing Lab: [place] [id number] [place] [address] COMPREHEN SIVE METABOLIC PANEL PROTEIN [MASS/VOLUM E] [...] Apr 28, 2022 08:24 AM Reporting Lab: [place] [id number] Performing Lab: [place] [id number] [place] [address] COMPREHEN SIVE METABOLIC PANEL SODIUM [MOLES/VOLU ME] [...] Apr 28, 2022 08:24 AM Reporting Lab: [place] [id number] Performing Lab: [place] [id number] [facility] COMPREHEN SIVE METABOLIC PANEL CHLORIDE [MOLES/VOLU ME] [...] Apr 28, 2022 08:24 AM Reporting Lab: [place] [id number] Performing Lab: [place] [id number] [place] [address] COMPREHEN SIVE METABOLIC PANEL BILIRUBIN.T OTAL [MASS/VOLUM [...] Apr 28, 2022 08:24 AM Reporting Lab: [place] [id number] Performing Lab: [place] [id number] [place] [address] COMPREHEN SIVE METABOLIC PANEL POTASSIUM [MOLES/VOLU ME] [...] Apr 28, 2022 08:24 AM Reporting Lab: [place] [id number] Performing Lab: [place] [id number] [place] [address] COMPREHEN SIVE METABOLIC PANEL ANION GAP IN SERUM OR PLASMA 13.9 mmol/L 10 - 04/20 Specimen Type: SERUM Comment: CREATININE eGFR was calculated using the CKD-EPI 2020 equation. TRIGLYCERID E REF RANGE: NORMAL <150 mg/dL BORDERLINE HIGH: 150-199 TRIGLYCERID E mg/dL HIGH: 200-499 mg/dL VERY HIGH: >=500 mg/dL Ordering Provider: YAIMA SOTO Report Released Date/Time: Apr 28, 2022 08:24 AM Reporting Lab: [place] [id number] Performing Lab: [place] [id number] [facility] GLOMERULAR FILTRATION RATE/1.73 SQ M.PREDICTED [...] Apr 28, 2022 08:24 AM Reporting Lab: [address] [address] Performing Lab: [place] [id number] [facility] Vital Signs Combined list of inpatient and outpatient Vital Signs from Department of Defense and Veterans Affairs, ranging from 12 months to all on record, depending upon the facility. Vital Sign Value Date Comments Source SYSTOLIC BLOOD PRESSURE 124 04/25/2024 09:28:48 [facility] DIASTOLIC BLOOD PRESSURE 72 04/25/2024 09:28:48 [facility] PULSE OXIMETRY 97 04/25/2024 09:28:48 [facility] WEIGHT 202.5 04/25/2024 09:28:[address] [facility] BMI 33 kg/m2 04/25/2024 09:28:[address] [facility] PAIN 4 04/25/2024 09:28:[address] [facility] TEMPERATURE 98.5 04/25/2024 09:28:48 [facility] PULSE 51 04/25/2024 09:28:[address] [facility] RESPIRATION 16 04/25/2024 09:28:48 [facility] Encounters Combined list of: 1) Encounters from [facility] facilities going backup to the last 18 months, not all [facility] inpatient encounters are included; 2) Encounters from the Department of [facility] facilities going backup to 280 months. Location Location Details Encounter Type Encounter Number Reason For Visit Attending Provider ADM Date DC Date Status Disposition Source [facility] Outpatient Encounter [id number] [place] [facility] En[place] [id number] 04/25 [facility] OFFICE O/P EST MOD 30 MIN [id number] Diagnos is: ICD-10- CM E11.9 Type 2 diabete s mellitu s without complic ations CHARLES,A BRITTNEY R 04/25 [facility] Social History Combined list of available smoking, tobacco, and other social history from Department of Defense and Veterans [facility] facilities. Social History Type Response Date Comment Sourc e Tobacco smoking status NDIS [facility] NEVER USED 04/25/2024 [facility] History of tobacco use [facility] NEVER USED 04/27/2023 [facility] History of tobacco use [facility] FORMER USER 04/28/2022 [facility] [place] of tobacco use [place] 1 5 YRS OR MORE 05/06/2021 [...] use TOBACCO [place] NON USER 2 [facility] [facility] Plan of Care List of future care activities from [facility] facilities. Additional future care activities may be listed in the Assessment and Plan section. Date/Time Care Activity Care Activity Detail Facili ty 04/17/2025 AMBULATORY - NONE AMBULATORY - NONE [facility]
--- OUTSIDE RECORDS SUMMARY | 2025-02-20 10:20 | XMS_ITS | Encounter Summary ---
Author Organization [facility] Address [address] [place], [place] [id number] Care Team Providers Care Vector Control Specialist Name Role Phone Jamar Jones DO Primary Care Provider [phone] Galina Wall APRN.FACE WORKER Unavailable [phone] Clementine Aguilar RN Unavailable [phone] Saul Galdamez MD Unavailable [phone] Source Comments In the event this information is protected by the Federal Confidentiality of Alcohol and Drug AbusePatient Records regulations: The Federal rules restrict any use of the information to criminally investigate or prosecute any alcohol or drug abuse patient.[facility] Encounter Details Date Type Department Care Team (Latest Contact Info) Description 02/20/2025 10:20 AM EDT Visit (SP) Office Hematology/Oncology [address] [place] [address] [place] [address] Saul Galdamez MD [address] [place] [address] [place] [address] Malignant neoplasm of prostate (HCC) (Primary Dx); Type 2 diabetes mellitus without complication, without long-term current use of insulin (HCC); Anemia, unspecified type; Secondary malignant neoplasm of bone (HCC); Cervical disc disorder with radiculopathy of cervical region Social History Tobacco Use Types Packs/Day Years [...] is lower risk 7 02/02/2023 Data from: https://www.neighborhoodatlas.medicine.[facility].edu/. Last address used for calculation [address] 02/02/2023 Sex and Gender Information Value Date Recorded Sex Assigned at Male 02/11/2022 11:48 AM EDT Legal Sex Male 8:03 AM EST Gender Identity Male 02/11/2022 11:48 AM EDT Sexual Orientation Straight 02/11/2022 11 :48 AM EDT documented as of this encounter Last Filed Vital Signs Vital Sign Reading Time Taken Comments Blood Pressure 130/84 02/20/2025 10:13 AM EDT Pulse 60 02/20/2025 10:13 AM EDT Temperature 36.4 C (97.6 F) 02/20/2025 10:13 AM EDT Respiratory Rate 16 02/20/2025 10:13 AM EDT Oxygen Saturation 98% 02/20/2025 10:13 AM EDT Inhaled Oxygen Concentration - - Weight 91.4 kg (201 lb 8 oz) 02/20/2025 10:13 AM EDT Height - - Body Mass Index 32.54 11/07/2024 9:42 AM EDT documented in this encounter Functional Status * Are you [...] Assessment Author No 08/19/2014 10:35 AM Jennifer MillsARACELIS * Do you have difficulty dressing or bathing? Answer Date of Assessment Author No 08/19/2014 10:35 AM Jennifer Mills, MOGUL OPERATOR * Because of a physical, mental, or emotional condition, do you have difficulty doing errands alone such as visiting a doctor's office or shopping? Answer Date of Assessment Author No 08/19/2014 10:35 AM Jennifer MillsRICHARDN documented as of this encounter Mental Status * Because of a physical, mental, or emotional condition, do you have serious difficulty concentrating, remembering, or making decisions? Answer Entry Date Author No 08/19/2014 10:35 AM Jennifer Mills RICHARD KruegerN documented in this encounter Patient Instructions * Patient Instructions* Saul Galdamez MD - 02/20/2025 10:46 AM EDT Xgeva today and q 3 months Labs in 3 months RTC 1 week after labs Xgeva same day Continue Xtandi 160 mg daily Continue Lupron with Dr. Haywood as previously scheduled. We discussed your prostate cancer: - Continue taking Xtandi 160 mg daily as prescribed. - You received your Xgeva injection today to support bone health. Continue receiving this injectionevery three months as scheduled. - Continue with Lupron injections through Dr. Haywood. Your next dose is due in approximately one month. - Your PSA level is currently 0.26 and has been gradually increasing. If your PSA reaches 0.5, we will order a PSMA scan to assess for any progression. At that point, we may consider switching to a different medication, such as Nubeqa, which works slightly differently from Xtandi. - Monitor for any new or worsening bone pain, as this could indicate a need for further evaluation.If you experience new pain, please contact our office. We discussed your anemia: - You have a history of mild anemia, which may be related to your chronic conditions. I will investigate this further during your next set of labs. We discussed your diabetes: - Your A1c has improved and was last recorded at 5.5. Continue your current diabetes management plan, as it appears to be effective. Dr. Jones may consider adjusting your diabetic medications if your A1c remains stable. Follow-up: - Continue scheduling your labs approximately one week before your appointments to ensure results are available for review. - Your next follow-up appointment with me is in three months. Please contact our office if you haveany new concerns or symptoms before then. documented in this encounter Progress Notes * Saul Galdamez MD - 02/20/2025 10:20 AM EDT Images from the original note were not included. NAME: JudynathanRajesh CLINIC NO.: [id number] DATE OF SERVICE: February 20, 2025 (Denice) Some elements in this clinic note that are critical to medical decision making have been carefully reviewed and included from a prior clinic note dated: 11/07/2024 (Dheeraj) Referring Provider: RADHA Additional Clinicians involved in Rajesh Felix's care: Dr. Jamar Jones, Dr. Catracho Haywood, Dr. Khan, [facility] Cardiology DIAGNOSIS: Metastatic prostate cancer CASE SUMMARY / ASSESSMENT: 80 year old man with. 1. Metastatic prostate cancer (HCC) - ICD9: 185, ICD10: C61 (primary diagnosis) The patient was diagnosed with early-stage high-grade prostate cancer in June 2014 (TRUS [id number]/02/2014). He underwent a radical prostatectomy on 11/05/2014. [...] therapy with Xgeva started 11/18/2021, with plans to give every 3 months. The patient's PSA decreased by April 2023, and per urology Lupron was held. By April 2024 the PSA increased slightly, and Lupron resumed 04/19/2024 with plans to continue every 6 months. Currently the patient is clinically stable. However, most recent PSA has increased slightly. Options for therapy were discussed. For now he will continue Xtandi 160 mg daily. Will also continue Lupron every [address] Haywood, next injection due 03/31/2025. For bone metastasis he will continue with Xgeva every 3 months. Injection today. Return in 3 months for follow-up. If the patient's PSA continues to increase will consider staging with a PSMA PET scan. If significant disease progression will then discuss options for alternative therapy. 2. Coronary artery disease - ICD9: 414.01, [...] management per PCP with CT scan monitoring. SUMMARIZED PLAN OF CARE: Xgeva today and q 3 months Labs in 3 months RTC 1 week after labs Xgeva same day Continue Xtandi 160 mg daily Continue Lupron with Dr. Haywood as previously scheduled. AI Assisted A/P: 1. 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 Patient is on Xtandi 160 mg daily, Xgeva injections every 3 months, and Lupron with the next dose due in about a month. Previous treatments include prostatectomy, Lupron, and radiation therapy. Metastasis to bone confirmed in 2021. - Administered Xgeva injection today. - Continue Xtandi 160 mg daily. - Continue Lupron therapy with Dr. Haywood. - Monitor PSA levels; if PSA reaches 0.5, order a PSMA scan. - Discussed potential treatment change to Nubeqa if PSA continues to rise. - Educated patient on monitoring for new pain as a sign of potential bone metastasis progression. 2. Type 2 diabetes mellitus without complication, without long-term current use of insulin (HCC) (E11.9) Hemoglobin A1c is well-controlled at 5.5. Patient is on diabetic medication with potential for dosage adjustment by Dr. Jones. - Continue current diabetic management. - Follow-up with Dr. Jones for potential medication adjustment. 3. Anemia, unspecified type (D64.9) Chronic mild anemia noted; renal function is normal. Anemia may be related to chronic conditions such as diabetes. - Investigate further during next lab visit. 4. 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 - Continue current pain management regimen. - Monitor for any new or worsening symptoms. CASE HISTORY: Reverse Chronological Order 11/05/2021 CT chest/abdomen/pelvis ([facility]) Several sclerotic lesions consistent with metastatic disease. No evidence of visceral organ involvement or lymphadenopathy. 11/05/2021 Bone scan ([facility]) Multifocal osseous metastasis including the left femur at the lesser trochanter, right pubis symphysis, multiple ribs bilaterally. 01/22/2018 Nuclear bone scan ([facility]) New focal increased activity left frontal bone, left T8 vertebral body. 01/22/2018 MRI pelvis ([facility]) 4.5 cm area of T2 signal in the prostate bed. 11/05/2014 Radical retropubic prostatectomy and bilateral pelvic lymphadenectomy ([facility]) Poorly differentiated prostatic adenocarcinoma of left prostate. Left base margin positive for neoplasm. Seminal vesicles with no diagnostic abnormality. 2 resected lymph nodes negative for neoplasm. 07/24/2014 CT abdomen/pelvis ([facility]) Diffuse prostatic enlargement with indentation of the bladder base. Incidental 2.5 x 1 cm exophytic hypodense lesion adjacent to the pancreatic body. HPI: Updated Visit, February 20, 2025: Here with Crystal On 10/2021, patient with a history of prostate cancer, currently managed with Xtandi, Xgeva, and Lupron, was diagnosed with bone metastases. He began treatment with Xtandi and Xgeva. Approximately 10 years ago, he underwent prostatectomy. Following surgery, his PSA levels began to rise, leading to treatment with Lupron. Despite initial control, PSA levels increased again, prompting a course of radiation therapy under the care of Dr. Elise. In 2021, his PSA was 0.14 ng/mL. As of 10/2022, his PSA has gradually increased to 0.26 ng/mL. He reports chronic neck pain due to a bulging disc diagnosed in 2006, which was managed with injections.About a year ago, the pain recurred, and he was diagnosed with arthritis. He denies any new pain. He also has a history of anemia and diabetes, with a recent HbA1c of 5.5%. He is currently under the care of Dr. Haywood for Lupron therapy, with his next dose due in about a month. He follows a routine of getting labs done a week before his appointments. (02/13) Laboratory Tests: - PSA: 0.26 - A1c: 5.5 - Hemoglobin: Mildly decreased (chronic anemia) - Renal function: Normal (October 2022) PSA: Increasing from prior value (2021) PSA: 0.14 November 07, 2024 Esqueda: INTERIM HISTORY: This is a 79 year old male with metastatic prostate cancer, seen for scheduled follow-up.Since the patient's last visit here he has had no significant medical changes. He remains on Xtandi 160 mg daily which he is tolerating. He also receives Lupron every [address] Haywood, last given 10/07/2024. His only new complaint is intermittent diarrhea. Over the past several months the patient has noticed loose stools which appear to be related to diet. He suspects lactose intolerance. By cutting backon dairy and taking OTC meds (Lactaid) his diarrhea has improved. No other GI symptoms. Denies any bone pain. Denies difficulties with urination. Despite the above he feels well overall. REVIEW OF SYSTEMS Per HPI and otherwise negative by full review of organ systems. Musculoskeletal: (+) neck pain ECOG PERFORMANCE STATUS: 0 PHYSICAL EXAMINATION: Vitals: BP 130/84 Pulse 60 Temp (Src) 97.6 (Temporal) Resp 16 Wt 201 lb 8 oz (91.4kg) SpO2 98% Body surface area is 2.06 meters squared. Exam limited to gross visualization where appropriate. Gen.: This is an age-appropriate patient in no acute distress. Head: Appears atraumatic with no visible lesions. Eyes: Pupils equally round and reactive to light, extraocular muscles are intact. Neck: Supple. Respiratory: Appears to be respiring comfortably. Neurologic: Nonfocal to gross visualization. Alert and oriented ??3. Psychiatric: No evidence of inappropriate anxiety or depression. Skin: Visible areas of skin without rash, lesions, wounds or petechiae. ALLERGIES: ALLERGIES Allergen Reactions Penicillins Unknown Simvastatin Unknown MEDICATIONS: enzalutamide (XTANDI) 40 mg tablet Take 4 tablets (160 mg) by mouth once daily. Calcium Citrate-Vitamin D3 200 mg-6.25 mcg (250 unit) tab Take 2 tablets by mouth once daily. metoprolol succinate ER (TOPROL XL) 25 mg 24 hr tablet Take by mouth. Uofcuvzcrvoew-Qumjwanv-Zkuali (MULTIVITAMIN 50 PLUS) tab Take 1 tablet [...] Take 81 mg by mouth once daily. LABORATORY VALUES: WBC (k/uL) Date Value 2025 7.09 RBC (m/uL) Date Value 2025 3.69 (L) Hemoglobin (g/dL) Date Value 2025 12.0 (L) Hematocrit (%) Date Value 2025 35.3 (L) MCV (fL) Date Value 2025 95.7 MCH (pg) Date Value 2025 32.5 MCHC (g/dL) Date Value 2025 34.0 RDW-CV (%) Date Value 2025 12.7 Platelet Count (k/uL) Date Value 2025 204 MPV (fL) Date Value 2025 10.1 Glucose (mg/dL) Date Value 2025 122 (H) BUN (mg/dL) Date Value 2025 14 Creatinine (mg/dL) Date Value 2025 0.68 (L) Sodium (mmol/L) Date Value 2025 136 Potassium (mmol/L) Date Value 2025 4.5 Chloride (mmol/L) Date Value 2025 101 CO2 (mmol/L) Date Value 2025 25 Protein, Total (g/dL) Date Value 2025 6.4 Albumin (g/dL) Date Value 2025 4.2 Calcium, Total (mg/dL) Date Value 2025 9.3 Alkaline Phosphatase (U/L) Date Value 2025 73 Bilirubin, Total (mg/dL) Date Value 2025 0.6 AST (U/L) Date Value 2025 17 ALT (U/L) Date Value 2025 16 DIAGNOSIS: (C61) Malignant neoplasm of prostate (HCC) (primary encounter diagnosis) Plan: PROSTATE-SPECIFIC ANTIGEN DIAGNOSTIC, COMPLETE BLOOD COUNT AND DIFFERENTIAL, COMPREHENSIVE METABOLIC PANEL, PROSTATE-SPECIFIC ANTIGEN DIAGNOSTIC, COMPLETE BLOOD COUNT AND DIFFERENTIAL, COMPREHENSIVE METABOLIC PANEL, IRON AND TIBC, FERRITIN, VITAMIN B12, FOLATE, SERUM, ERYTHROPOIETIN/EPO (E11.9) Type 2 diabetes mellitus without complication, without long-term current use of insulin (HCC) Plan: PROSTATE-SPECIFIC ANTIGEN DIAGNOSTIC, COMPLETE BLOOD COUNT AND DIFFERENTIAL, COMPREHENSIVE METABOLIC PANEL (D64.9) Anemia, unspecified type Plan: PROSTATE-SPECIFIC ANTIGEN DIAGNOSTIC, COMPLETE BLOOD COUNT AND DIFFERENTIAL, COMPREHENSIVE METABOLIC PANEL, IRON AND TIBC, FERRITIN, VITAMIN B12, FOLATE, SERUM, ERYTHROPOIETIN/EPO (C79.51) Secondary malignant neoplasm of bone (HCC) (M50.10) Cervical disc disorder with radiculopathy of cervical region PAST MEDICAL HISTORY Diagnosis Date CAD (coronary artery disease) Hypercholesterolemia on medication Hypertension on medication Nocturia Prostate CA (HCC) Rising PSA level 10/2021 PAST SURGICAL HISTORY Procedure Laterality Date APPENDECTOMY CORONARY ARTERY BYPASS GRAFT Social History Tobacco Use Smoking status: Never Passive exposure: Never Smokeless tobacco: Never Vaping Use Vaping status: Never Used Substance Use Topics Alcohol use: Yes Comment: 1 day/wk Drug use: No FAMILY HISTORY Problem Relation Age of Onset Cancer Mother Cancer I spent a total of 30 minutes on the date of the service which included preparing to see the patient, [id number] patient care, completing clinical documentation, obtaining and/or reviewing separately obtained history, performing a medically appropriate examination, counseling and educating the pat ient/family/caregiver, ordering medications, tests, or procedures, independently interpreting results (not separately reported), communicating results to the patient/family/caregiver, and care coordination (not separately reported). Saul Galdamez MD, CPE Hematology and Oncology Services Provided at: [place], [place] CC: Jamar Jones, DO Catracho Haywood documented in this encounter Plan of Treatment Upcoming Encounters Date Type Department Care Team (Latest Contact Info) Description 05/15/2025 11:30 AM EDT Office Visit [facility] [address] [place] [address] [place] [address] 3 month lab 05/22/2025 11:00 AM EST Visit (SP) Office Hematology/Oncology [address] [place] [address] Chary Hodge APRN.FACE WORKER [address] [address] 3 month follow up with xgeva inj 05/22/2025 11:30 AM [facility] Hematology/Oncology [address] [place] [address] [address] [place], [place] [address] 3 month follow up with xgeva inj Scheduled Orders Name Type Priority Associated Diagnoses Orde r Schedule PROSTATE-SPECIFIC ANTIGEN DIAGNOSTIC Lab Routine Malignant neoplasm of prostate (HCC) Type 2 diabetes mellitus without complication, without long-term current use of insulin (HCC) Every 3 months for 4 Occurrences starting 02/20/2025 until 02/20/2026 COMPLETE BLOOD COUNT AND DIFFERENTIAL Lab Routine Malignant neoplasm of prostate (HCC) Type 2 diabetes mellitus without complication, without long-term current use of insulin (HCC) Every 3 months for 4 Occurrences starting 02/20/2025 until 02/20/2026 COMPREHENSIVE METABOLIC PANEL Lab Routine Malignant neoplasm of prostate (HCC) Type 2 diabetes mellitus without complication, without long-term current use of insulin (HCC) Every 3 months for 4 Occurrences starting 02/20/2025 until 02/20/2026 PROSTATE-SPECIFIC ANTIGEN DIAGNOSTIC Lab Routine Malignant neoplasm of prostate (HCC) Anemia, unspecified type Expected: 05/23/2025 (Approximate), Expires: 08/22/2025 COMPLETE BLOOD COUNT AND DIFFERENTIAL Lab Routine Malignant neoplasm of prostate (HCC) Anemia, unspecified type Expected: 05/23/2025 (Approximate), Expires: 02/20/2026 COMPREHENSIVE METABOLIC PANEL Lab Routine Malignant neoplasm of prostate (HCC) Anemia, unspecified type Expected: 05/23/2025 (Approximate), Expires: 02/20/2026 IRON AND TIBC Lab Routine Malignant neoplasm of prostate (HCC) Anemia, unspecified type Expected: 05/23/2025 (Approximate), Expires: 02/20/2026 FERRITIN Lab Routine Malignant neoplasm of prostate (HCC) Anemia, unspecified type Expected: 05/23/2025 (Approximate), Expires: 02/20/2026 VITAMIN B12 Lab Routine Malignant neoplasm of prostate (HCC) Anemia, unspecified type Expected: 05/23/2025 (Approximate), Expires: 02/20/2026 FOLATE, SERUM Lab Routine Malignant neoplasm of prostate (HCC) Anemia, unspecified type Expected: 05/23/2025 (Approximate), Expires: 02/20/2026 ERYTHROPOIETIN/EPO Lab Routine Malignant neoplasm of prostate (HCC) Anemia, unspecified type Expected: 05/23/2025 (Approximate), Expires: 08/22/2025 documented as of this encounter Visit Diagnoses Diagnosis Malignant neoplasm of prostate (HCC)- Primary Malignant neoplasm of prostate Type 2 diabetes mellitus without complication, without long-term current use of insulin (HCC) Anemia, unspecified type Secondary malignant neoplasm of bone (HCC) Secondary malignant neoplasm of bone and bone marrow Cervical disc disorder with radiculopathy of cervical region Brachial neuritis or radiculitis nos documented in this encounter Care Teams Vector Control Specialist Relationship Specialty Start Date End Date Jamar Jones DO PCP - General Internal Medicine 08/04/14 Galina Wall APRN.[facility] [address] [place] [address] Nurse Practitioner Hematology/Oncology 11/02/21 Clementine Aguilar, ANITHA [address] [place] [address] [place] [address] Specialty Bicycle Mechanic Hematology/Oncology 11/02/21 Saul Galdamez MD [address] [place] [address] Physician Hematology/Oncology 01/21/25 documented as of this encounter
--- OUTSIDE RECORDS SUMMARY | 2025-02-20 10:45 | XMS_ITS | Encounter Summary ---
Author Organization [facility] Address [address] [place], [place] [address] Care Team Providers Care Label Tacker Name Role Phone Jamar Jones DO Primary Care Provider [phone] Galina Wall APRN.PRINTING PRESS OPERATOR APPRENTICE Unavailable [phone] Clementine Aguilar RN Unavailable [phone] Saul Galdamez MD Unavailable [phone] Source Comments In the event this information is protected by the Federal Confidentiality of Alcohol and Drug AbusePatient Records regulations: The Federal rules restrict any use of the information to criminally investigate or prosecute any alcohol or drug abuse patient.[facility] Reason for Visit * [place] Prior Authorization (Routine) - Authorized Specialty Diagnoses / Procedures Referred By Contac t Referred To Contact Diagnoses Malignant neoplasm of prostate (HCC) Procedures DENOSUMAB INJECTION Marco A Esqueda MD Hematology/Oncology [address] [place] [address] [place] [address] Phone: tel: fax: Referral ID Status Reason Start Date Expiration Date V isits Requested Visits Authorized [id number] Authorized 11/11/2021 07/16/2022 99 99 Encounter Details Date Type Department Care Team (Latest Contact Info) Description 02/20/2025 10:45 AM EDT Infusion Center Hematology/Oncology [address] [place] [address] [place] [address] Malignant neoplasm of prostate (HCC) (Primary Dx) Social History Tobacco Use Types Packs/Day Years [...] is lower risk 7 02/02/2023 Data from: https://www.neighborhoodatlas.medicine.[facility]/. Last address used for calculation [...] Description 05/15/2025 11:30 AM EDT Office Visit [facility] [address] [place] [address] [place] [address] 3 month lab 05/22/2025 11:00 AM EST Visit (SP) Office Hematology/Oncology [address] [facility] [place] [address] Chary Hodge APRN.PRINTING PRESS OPERATOR APPRENTICE [address] [address] 3 month follow up with xgeva inj 05/22/2025 11:30 AM [facility] Hematology/Oncology [address] [facility] [place] [address] 3 month follow up with xgeva inj documented as of this encounter Visit Diagnoses Diagnosis Malignant neoplasm of prostate (HCC)- Primary Malignant neoplasm of prostate documented in this encounter Administered Medications Inactive Administered Medications - up to 3 most recent administrations Medication Order MAR Action Action Date Dose Rate Site denosumab 120 mg injection (XGEVA) 120 mg, SUBCUTANEOUS, ONCE, 1 dose, On [place] 02/20/25 at 1130, REFRIGERATEIndications:Dorian parker neoplasm of prostate (HCC) Given 02/20/2025 11:22 AM EDT 120 mg Arm, Left documented in this encounter Care Teams Label Tacker Relationship Specialty Start Date End Date Jamar Jones DO PCP - General Internal Medicine 08/04/14 Galina Wall APRN.PRINTING PRESS OPERATOR APPRENTICE [address] [place] [address] [place] [address] Nurse Practitioner Hematology/Oncology 11/02/21 Clementine Aguilar, RN [address] [place] [address] Specialty Director Of Golf Hematology/Oncology 11/02/21 Saul Galdamez MD [address] [place] [address] Physician Hematology/Oncology 01/21/25 documented as of this encounter
--- OUTSIDE RECORDS SUMMARY | 2025-02-25 10:20 | XMS_ITS | Encounter Summary ---
Author Organization [facility] Address [address] [place] [address] Care Team Providers Care Lanolin Plant Operator Name Role Phone Jamar Jones DO Primary Care Provider [phone] Reason for Visit * Reason Comments Skin Check Encounter Details Date Type Department Care Team ([facility] Contact Info) Description 02/25/2025 10:20 AM EDT Office Visit [facility] [address] [facility] [address] [place] [phone] Deisy Boo APRN-CNP [address] [facility] [address] [place] [address] Seborrheic keratosis (Primary Dx); Melanocytic nevus of trunk; Actinic keratosis; Lentigines; Psoriasis vulgaris ; History of SCC (squamous cell carcinoma) of skin Social History Tobacco Use Types Packs/Day Years Used Date Smoking Tobacco: Never Smokeless Tobacco: Never Alcohol Use Standard Drinks/Week Comments Yes 8 [...] on file Sexual Orientation Not on file documented as of this encounter Progress Notes * JOSH Cruz - 02/25/2025 10:20 AM EDT Skin Check Location: Patient requests a full body skin examination Dermatologic history: history of Actinic Keratosis, history of Squamous Cell Carcinoma Last visit: 1 year ago Established patient All pertinent medical history, medications, and allergies were reviewed. General Exam: alert, oriented to person, place, and time, normal affect, well appearing Accompanied by spouse Areas not examined despite medical recommendation: Scalp, Examined , exam limited by hair Right leg Examined Head, Face Examined Left leg Examined Neck Examined Right foot Examined Chest Examined Left foot Examined Back Examined Buttocks Examined Patient kept underwear on Abdomen Examined Digits,nails: Examined Right arm Examined Left arm Examined Lymphatics: Not examined Hands Examined Skin Exam 1. SEBORRHEIC KERATOSIS Generalized Stuck on verrucous, johnson-brown papules and plaques. Patient was counseled regarding these benign growths. Removal is normally not necessary, but they may be removed if they are symptomatic or for cosmetic reasons. 2. MELANOCYTIC NEVUS OF TRUNK Generalized Scattered benign appearing, regular brown to light brown melanocytic papules and macules with similar morphology Counseled regarding these benign growths. Rarely, a nevus can develop into malignant melanoma, so any changing nevi should be promptly re-evaluated. 3. ACTINIC KERATOSIS (11) Left Anterior Lobule, Left Buccal Cheek, Left Forehead, Left Posterior Neck, Left Preauricular Area, Left Taoism, Left Temporal Scalp, Right Forehead, Right Parotid Area, Right Superior [place] (2) Erythematous scaly papules Patient was counseled regarding [...] limited to risks of scarring, darker or senior cisco network engineer pigmentary changes, recurrence, incomplete removal and infection. Method: Liquid nitrogen was used to treat the lesion(s) with two 5-10 second freeze-thaw cycles. Eyes were shielded using cotton pad during procedure Number of lesions treated: 11 Post-procedure instructions: Instructions were given orally and in writing. The office will be contacted if the lesion fails to resolve despite treatment, or if a side effect develops such as abnormal crusting, scabbing, redness or tenderness Cryotherapy, skin lesion - Left Anterior Lobule, Left Buccal Cheek, Left Forehead, Left Posterior Neck, Left Preauricular Area, Left Taoism, Left Temporal Scalp, Right Forehead, Right Parotid Area, Right Superior [place] (2) Related Medications fluorouracil (Efudex) 5 % cream Apply to directed areas on the face, ears and back of hands twice a day x 14 days. Dispense 30 day supply but only use for 14 days. 4. LENTIGINES Generalized Scattered johnson macules in sun-exposed areas. The patient was informed that lentigines are benign pigmented lesions that occur on sun-exposed andsun-damaged skin. No treatment is necessary. Recommended regular use of broad spectrum sunscreen SPF 30 or higher 5. PSORIASIS VULGARIS Left Lower Leg - Posterior Well-marginated erythematous papules/plaques with silvery scale. The patient was informed that psoriasis is a chronic condition that can be controlled but not cured. Continue fluocinonide cream 0.05% twice daily. Instructed to contact office if psoriasis worsens or fails to improve despite treatment. Related Medications fluocinonide (Lidex) 0.05 % cream Apply topically 2 (two) times a day 6. HISTORY OF SCC (SQUAMOUS CELL CARCINOMA) OF SKIN Right Mid [place] No evidence of recurrence at SCC scar. The patient was counseled that scars from excisional sites of nonmelanoma skin cancers should be monitored closely for recurrence. The patient was instructed to contact the office for any new, changing, or symptomatic moles. The patient was also instructed to contact the office for any new lesions that develop within or around the previous surgery scar. Next Visit: 1 year, skin check documented in this encounter Plan of Treatment Upcoming Encounters Date Type Department Care Team (Late st Contact Info) Description 02/26/2026 10:25 AM EDT Office Visit [facility] [address] [place] [address] Deisy Boo APRN-CNP [address] [place] [address] documented as of this encounter Procedures Procedure Name Priority Date/Time Associated Diagnosis Comments CRYOTHERAPY SKIN LESION Routine 02/26/20 10:15 AM EDT Actinic keratosis documented in this encounter Results * Cryotherapy, skin lesion (02/25/2025 10:15 AM EDT) us Deisy Boo DIRECTOR PHARMACEUTICAL-GAME MASTER DERM PROCEDURE ORDERAB LES Final Result documented in this encounter Visit Diagnoses Diagnosis Seborrheic keratosis- Primary Melanocytic nevus of trunk Benign neoplasm of skin of trunk, except scrotum Actinic keratosis Lentigines Psoriasis vulgaris Other psoriasis History of SCC (squamous cell carcinoma) of skin Personal history of other malignant neoplasm of skin documented in this encounter Care Teams Lanolin Plant Operator Relationship Specialty Start Date End Date Jamar Jones DO [address] [place] [address] PCP - General Internal Medicine 05/31/23 documented as of this encounter
--- OUTSIDE RECORDS SUMMARY | 2025-02-27 08:07 | XMS_ITS | Encounter Summary ---
Author Organization [facility] Address [address] [place], [place] [address] Care Team Providers Care Belt Changer Name Role Phone Jamar Jones DO Primary Care Provider [phone] Marco A Esqueda MD Unavailable Unavail able Galina Wall APRN.THERAPEUTIC RECREATION LEADER Unavailable [phone] Clementine Aguilar RN Unavailable [phone] Saul Galdamez MD Unavailable [phone] Source Comments In the event this information is protected by the Federal Confidentiality of Alcohol and Drug AbusePatient Records regulations: The Federal rules restrict any use of the information to criminally investigate or prosecute any alcohol or drug abuse patient.[facility] Encounter Details Date Type Department Care Team [...] is lower risk 7 02/02/2023 Data from: https://www.neighborhoodatlas.medicine.[facility]/. Last address used for calculation [...] Description 05/15/2025 11:30 AM EDT Office Visit [facility] [address] [place] [address] [place] [address] 3 month lab 05/22/2025 11:00 AM EST Visit (SP) Office Hematology/Oncology [facility] [place] [address] Chary Hodge, RECEPTION MANAGER.THERAPEUTIC RECREATION LEADER [facility] [place] [address] 3 month follow up with xgeva inj 05/22/2025 11:30 AM EST Infusion Center Hematology/Oncology [facility] [place] [place] [address] 3 month follow up with xgeva inj documented as of this encounter Visit Diagnoses Not on filedocumented in this encounter Care Teams Belt Changer Relationship Specialty Start Date End Date Jamar Jones DO PCP - General Internal Medicine 08/04/14 Marco A Esqueda MD Physician Hematology/Oncology 11/02/21 01/20/25 Galina Wall, RECEPTION MANAGER.THERAPEUTIC RECREATION LEADER [facility] [place] [address] Nurse Practitioner Hematology/Oncology 11/02/21 Clementine Aguilar, ANITHA [facility] [address] [address] Specialty Trim Sawyer Hematology/Oncology 11/02/21 Saul Galdamez MD [address] [place] [address] [place] [address] Physician Hematology/Oncology 01/21/25 documented as of this encounter
--- OUTSIDE RECORDS SUMMARY | 2025-02-27 08:07 | XMS_ITS | Patient Health Record ---
Author Organization [facility] Address [address] [place] [address] Care Team Providers Care Jewelry Mold Maker Name Role Phone JUAN DAVID SEGUNDO LISSA Primary Care Provider Unavaila Cristhian Santos Unavailable [phone] PHILIP TALAVERA CNP Unavailable Unavailable xxDeisy Mir Unavailable Allergies Allergen (clinical drug ingredient) Drug/Non Drug Allergy documented on EMR Reaction Allergy Type Onset Date Status PENICILLIN (uncoded) Unknown Allergy Active Results Component Value Reference Range Notes Surgery Scheduling Reviewed date:05/09/2024 08:46:51 AM Interpretation: Performing Lab: Notes/Report: Social Sec number: [id number] Primary Insurance Company: MEDICARE Surgeon/Assist: [place] Surgery Location: [facility] Surgery Date & Time: 04/08/24 Surgery End Time: 30 MINUTES Procedure: RIGHT ENDOSCOPIC CAR PAL TUNNEL RELEASE, 50663 Diagnosis: RIGHT CARPAL TUNNEL SYNDROME Admission Type: OUTPATIENT Anesthesia Type/CPNB: LOCAL/MAC Post-op Appointment Date: 2 WKS Latex Allergy NO Lab Location: [facility] Slag Dumper: ANA Gallagher Physician: DR. SCHMITT Reason For Referral Reason LEV................. .......PLEASE OBTAIN AUTHORIZATION FOR RIGHT ENDOSCOPIC CARPAL TUNNEL RELEASE Diagnosis 1 Preop testing (Z01.8 18) Referral Organization [facility] Referring Provider First Name Cristhian Referring Provider Last Name Alesia Referring Provider Speciality Orthopedic Surgery Referred Organization [facility] Referred Address [address] [place], [place],[address], Procedure 1 Arthroscopy, wrist, w/release of trans carpal lig (00854) General Notes Anya Mendoza 024 12:41:38 PM >PER AVAILITY, PATIENT IS ACTIVE PART A AND PART B, NO AUTH REQUIRED MA NOTIFIED REF FAXED TO [facility] Priority Routine Reason LEV................. .........PLEASE OBTAIN AUTHORIZATION FOR LEFT ENDOSCOPIC CARPAL TUNNEL RELEASE Diagnosis 1 Preop testing (Z01.8 18) Diagnosis 2 Bilateral carpal renan sultana syndrome (G56.03) Referral Organization [facility] Referring Provider First Name Cristhian Referring Provider Last Name Alesia Referring Provider Speciality Orthopedic Surgery Referred Organization [facility] Referred Address [address] [place], [place],[address], Procedure 1 Arthroscopy, wrist, w/release of trans carpal lig (18883) General Notes Anya Mendoza 024 12:43:22 PM >PER AVAILITY, PATIENT IS ACTIVE PART A AND PART B, NO AUTH REQUIRED MA NOTIFIED REF FAXED TO [facility] Priority Routine Medications Medication SIG (Take, [...] Status Risk Notes Problem Carpal tunnel syndrome (55718902) Right carpal tunnel syndrome (G56.01) Active confirmed Problem Carpal tunnel syndrome (44997061) Left carpal tunnel syndrome (G56.02) Active confirmed Problem 541455414 Paresthesia of both hands (R20.2) Active confirmed Problem [id number] Bilateral carpal tunnel syndrome (G56.03) Active confirmed Problem [id number] Arthritis of right hand (M19.041) Active confirmed Vital Signs Height 5'6 in 03/11/2024 Weight 200 lbs 03/11/2024 BMI 32.28 03/11/2024 Encounters Encounter Location Date Provider Diagnosis [facility] Office [address] [facility] [place] [address] 03/11/2024 Cristhian Dumas Bilateral carpal tunnel syndrome G56.03 [facility] [address] [place] [address] 04/08/2024 Cristhian [place] Right carpal tunnel syndrome G56.01 [facility] [address] [place] [address] 04/22/2024 Cristhian Dumas Left carpal tunnel syndrome G56.02 [facility] Office [address] [facility] [place] [address] 05/06/2024 [facility] Bilateral carpal tunnel syndrome G56.03 [...] A1C 01/29/2024 SCC- HAND 3 VIEW RIGHT [id number] 01/29/2024 Insurance Providers Payer Name Payer Address Payer Phone Subscriber Number Group Number Insured Name Patient Relationship to Insured Coverage Start Date Coverage [place] [address] [place] [address] [id number] PABLO ONEIL Self - patient is the insured Medicare [facility] Advantage [address] [place] [id number] PABLO ONEIL Self - patient is the insured Medical (General) History Medical History History 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
--- OUTSIDE RECORDS SUMMARY | 2025-02-27 08:08 | XMS_ITS ---
Author Organization [facility] Address [address] [place], [place] [address] Care Team Providers Care Crab Butcher Name Role Phone Jamar Jones Primary Care Provider [phone] Galina Wall INSPECTOR ASSEMBLIES AND INSTALLATIONS.TAILOR GARMENT FITTER Unavailable [phone] Clementine Aguilar RN Unavailable [phone] Saul Galdamez MD Unavailable [phone] Active Problems Problem Noted Date Diagnosed Date Malignant neoplasm of prostate 08/06/2014 Current Treatment and Therapy Plans AMB BONE MODIFYING AGENT: $$$$ - Q4 WEEKS - IF CrCl IS LESS THAN 30 ML/MIN* Plan Start Date:11/18/2021 Plan Provider:Marco A Esqueda MD Linked Problems Malignant neoplasm of prosta te (HCC) Treatment Medications Current Day (Day 1 , Cycle 15 - Planned for 05/21/2025) Next Day (Day 1, Cycle 16 - Planned for 08/19/2025) denosumab (XGEVA) denosumab 120 mg inj ection (XGEVA) denosumab 120 mg injection (XGEVA) Past Treatment and Therapy Plans No past plan information found.
--- OUTSIDE RECORDS SUMMARY | 2025-02-27 08:08 | XMS_ITS | Clinical Summary ---
Author Organization [facility] Address [address] [place] [address] Care Team Providers Care Cheesemaking Laborer Name Role Phone Jamar Jones DO Primary Care Provider [phone] Allergies Active Allergy Reactions Criticality Noted Date [...] 25 mg by mouth every 12 (twelve) hours Active glimepiride (Amaryl) 1 MG tablet Take 0.5 mg by mouth in the morning. Take before meals. Active metFORMIN, OSM, (Fortamet) 500 MG 24 hr tablet Take 500 mg by mouth in the evening. Take with meals Do not crush, chew, or split. Active [...] 60 g 11 4 02/26/20 25 Active Problems Problem Noted Date Diagnosed Date [...] Date Resolved Date Primary hypertension 06/01/2023 023 Encounters Date Type Department Care Team Description 02/25/2025 10:20 AM EDT Office Visit [facility] [address] [place] [address] Deisy Boo APRN-ALEXA Seborrheic keratosis (Primary Dx); Melanocytic nevus of trunk; Actinic keratosis; Lentigines; Psoriasis vulgaris ; History of SCC (squamous cell carcinoma) of skin 02/25/2025 Bamboo flowsheet [facility] [address] [place] [address] Deisy Boo APRN-CNP 02/25/2025 Travel 02/18/2025 Travel from Last 3 Months Immunizations Immunization Administration Dates Next Due Pneumococcal [...] Description 02/26/2026 10:25 AM EDT Office Visit [facility] [address] [place] [address] Deisy Boo APRN-[employer] WIREMAN [address] [place] [address] Health Maintenance Due Date Last Done Comments Influenza Vaccine (#1) 2025 , 05/01/2023, 04/28/2022, Additional history exists Pneumococcal Vaccine: 65+ Years Completed 06/12/2017, 06/01/2017, 05/11/2015, Additional history exists Procedures Procedure Name Priority Date/Time Associated Diagnosis Comments CRYOTHERAPY SKIN LESION Routine 02/26/20 10:15 AM EDT Actinic keratosis from Last 3 Months Results * Cryotherapy, skin lesion (02/25/2025 10:15 AM EDT) Deisy Boo PRESS SUPERVISOR-[employer] WIREMAN DERM PROCEDURE ORDERAB LES Final Result from Last 3 Months Insurance MEDICARE [employer] [place] Care Teams Cheesemaking Laborer Relationship Specialty Start Date End Date Jamar Jones DO [address] [place] [address] PCP - General Internal Medicine 05/31/23
--- NOTE | 2025-02-27 08:09 | PM.CN ---
Consult Note: HPI Data of Consult Patient: known to practice within the last 3 years Requesting Physician: Cheryl Cox NP Primary Care Provider: Non-Staff Physician, MD Consult Narrative Reason for consult: f/u Narrative: Rajesh Felix a pleasant 79 year old male presents for evaluation of chronic left sided neck pain. has failed to benefit from >6 weeks of PT and provider guided HEP, heat, ice, tylenol, and topical NSAIDs. recent cervical xray and MRI consistent with multilevel degenerative changes and cervical stenosis. recently underwent repeat Left C3-4 C4-5 TFESI with >50% improvement in pain and functional ability ongoing. pt notes no improvement in numbness/tingling to lateral neck. cc:: CC: Cheryl Cox NP Review of Systems ROS Status of ROS 10 or more systems reviewed and unremarkable except as noted in history and below Musculoskeletal Reports: neck pain; Denies: extremity pain PFSH PFSH Medical History Anemia ?D64.9 - Anemia, unspecified (ICD-10) History of blood transfusion ?Z92.89 - Personal history of other medical treatment (ICD-10) Sleep apnea ?G47.30 - Sleep apnea, unspecified (ICD-10) COVID-19 ?U07.1 - COVID-19 (ICD-10) Prostate cancer ?C61 - Malignant neoplasm of prostate (ICD-10) Coronary artery disease ?I25.10 - Atherosclerotic heart disease of [place] coronary artery without angina pectoris (ICD-10) Diabetes ?E11.9 - Type 2 diabetes mellitus without complications (ICD-10) Arthritis ?M19.90 - Unspecified osteoarthritis, unspecified site (ICD-10) Neck pain ?M54.2 - Cervicalgia (ICD-10) Surgical History 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 - Presence of aortocoronary bypass graft (ICD-10) History of appendectomy ?Z90.49 - Acquired absence of other specified parts of digestive tract (ICD-10) S/P prostatectomy ?Z90.79 - Acquired absence of other genital organ(s) (ICD-10) History of colonoscopy ?Z98.890 - Other specified postprocedural states (ICD-10) S/P epidural steroid injection ?Z92.241 - Personal history of systemic steroid therapy (ICD-10) Family History Other Cancer Family history of myocardial infarction Social History Within the past year, how often did you have a drink containing alcohol: 4 or more times a week Within the past year, how many standard drinks containing alcohol did you have on a typical day: 1 or 2 Total score: 0 Score interpretation: A score less than 4 is consistent with normal alcohol consumption. Smoking status: Never smoker Non-prescribed substance use: denies use Previous occupational history: [employer] Highest level of school completed/degree received: Associate degree: occupational, technical, vocational program Meds Home Medications and Allergies Home Medications ?Medication ?Instructions ?Recorded ?Confirmed ?Type CALCIUM & D3 .QD 12/13/23 History aspirin 81 mg capsule 81 mg PO DAILY 12/13/23 02/17/25 History atorvastatin 40 mg tablet 40 mg PO DAILY 12/13/23 02/17/25 History enzalutamide 80 mg tablet (Xtandi) 80 mg PO DAILY 12/13/23 02/17/25 History glimepiride 1 mg tablet 0.5 mg PO DAILY 12/13/23 02/17/25 History metformin 500 mg tablet 1,000 mg PO BID 12/13/23 02/17/25 History metoprolol succinate 25 mg 25 mg PO Q12H 12/13/23 02/17/25 History tablet,extended release 24 hr multivitamin with iron (Daily 1 tab PO DAILY 12/13/23 02/17/25 History Vites/Iron tablet) lisinopril 20 1 tab PO QPM 04/01/24 02/17/25 History mg-hydrochlorothiazide 12.5 mg tablet Allergies Allergy/AdvReac Type Severity Reaction Status Date / Time Penicillins Allergy Mild Rash Verified 02/17/25 08:31 Exam Constitutional Documenting provider has reviewed patient's vital signs: yes Common normals: no apparent distress, oriented x3, healthy appearing, alert and well nourished General appearance: cooperative HENOK Common normals: normocephalic, hearing grossly normal bilaterally and moist oral mucous membranes Head and scalp: normocephalic Eye Common normals: PERRL Pupil: PERRL Neck & C-Spine Common normals: full ROM General: normal visual inspection Cervical spine: paracervical muscle tenderness; no cervical spine tenderness, no paracervical muscle spasm and no trapezius muscle tenderness Other: strength 5/5 in BUE sensation intact BUE no trigger points noted Chest Common normals: inspection of chest normal Respiratory Common normals: normal respiratory effort, no retractions and no use of accessory muscles Neuro Common normals: oriented x3 Sensorium/orientation: alert Psych Common normals: mental status grossly normal, thought process normal, cooperative, affect normal, speech normal and activity/motor behavior normal Speech: normal speech Thought process: normal thought process Results Additional Findings Additional findings: If on a controlled substance or opioids, I have checked an [place] report on this patient and there are no aberrancies noted in the prescribing history.??If on a controlled substance or opioid a drug screen was completed and reviewed within the last year, and if there has not been a drug screen completed we ordered one today to monitor higher risk, state monitored pain medication use. As part of providing excellent, safe, comprehensive care, the following was completed at our patient's visit: 1. A medication reconciliation and review to ensure accurate knowledge of current/active medications, including asking our patients to inform us about any [id number] medications or herbal remedies/nutritional supplements/alternative remedies. 2. A review to specifically ensure our patients have had annual screening for screening for depression, screening for tobacco use, and screening for unhealthy alcohol use. For concerning screenings had a discussion with the patient, provided patient education, and recommended follow-up with primary care provider when appropriate. If patient noted with a risk of falling, they received education on strength, gait, and balance training to prevent future risk of falling. Portions of this note may have been carried over from the previous visit and updated as appropriate. Please note this office utilizes paper charting in addition to the electronic medical record. A list of current medications, vitals, and PMH is available there as the clinical staff outside of myself do not have access to [facility] charting during the clinic day operations. As part of providing quality comprehensive care the current medications, vitals, and PMH were reviewed in the paper chart. Assessment and Plan Assessment and Plan (1) Cervical spinal stenosis: Assessment and Plan: The patient has had over 3 months of moderate to severe neck pain with functional impairment and inadequate response to conservative care including NSAIDS (unless there are contraindication such as concurrent blood thinners), multiple oral or topical pain medications, and home exercise program/physical therapy.? Patient has completed >6 weeks of guided home exercise program and/or formal physical therapy program without relief of their symptoms.? I have reviewed the imaging of the cervical spine and no red flags were identified.? The imaging reveals radiographic findings consistent with cervical DDD, cervical stenosis, and cervical spondylosis The Oswestry Disability Index was completed, and the patient scored a 4%.? 10/21/24 left C3-4 C4-5 TFESI >50% improvement in pain/functional ability for 3 months 02/17/25 left C3-4 C4-5 TFESI under fluoroscopy >50% improvement ongoing (2) Cervical radiculopathy: (3) Cervical spondylosis: Assessment and Plan: failed left C2-3 C3-4 MBB and left C4/5 C5/6 MBB (4) Myofascial pain: Plan information provided on scs trial/implant, has not met with NS for evaluation in the past continue HEP as tolerated f/u 3 months, sooner if needed
--- OUTSIDE RECORDS SUMMARY | 2025-02-27 08:09 | XMS_ITS | Clinical Summary ---
Author Organization [facility] Address [address] [place] [address] Care Team Providers Care Party Bus Driver Name Role Phone Jamar Jones DO Primary Care Provider [phone] Allergies Active Allergy Reactions Criticality Noted Date [...] EBRT 2018 Jun 01, 2016 Entered By: AHRVINDER TORIBIO Comment: PROSTATECTOMY 10/2014Jun 01, 2016 Entered [...] 03/29/2024 1:50 PM EDT Plan of Treatment Upcoming Encounters Date Type Department Care Team (Late st Contact Info) Description 03/20/2025 9:20 AM EDT Office Visit [facility] [address] [place] [address] Katelyn Quiroz, SAUSAGE MAKER [address] [place] [address] Health Maintenance Due Date Last Done Comments Diabetes: Hemoglobin A1C 1945 Medicare Annual Wellness (AWV) 1945 Diabetes: Retinopathy Screening 02/14/1956 Depression Screening 1958 Diabetes: Urine Protein Screening 1965 Fall Risk Screening 2011 COVID-19 Vaccine ( season) 2024 04/26/2024, 04/21/2022, 01/21/2022, Additional history exists Influenza Vaccine (#1) 2025 , 05/01/2023, 04/28/2022, Additional history exists Adult Tetanus 04/25/2034 04/25/2024, 1210/2012, 04/24/2013, Additional history exists Pneumococcal Vaccine: 50+ Years [...] to complete this topic Insurance MEDICARE [employer]ICAL [place] Care Teams Party Bus Driver Relationship Specialty Start Date End Date Jmaar Jones DO [address] [place] [address] PCP - General 04/27/22
--- OUTSIDE RECORDS SUMMARY | 2025-02-27 08:09 | XMS_ITS | Encounter Summary ---
Author Organization [facility] Address [address] [place] [address] Care Team Providers Care Fitness Sales Associate Name Role Phone Jamar Jones DO Primary Care Provider [phone] Marco A Esqueda MD Unavailable Unavail able Galina Wall APRN.COMMUNICATIONS PROGRAM MANAGER Unavailable [phone] Clementine Aguilar RN Unavailable [phone] Saul Galdamez MD Unavailable [phone] Source Comments In the event this information is protected by the Federal Confidentiality of Alcohol and Drug AbusePatient Records regulations: The Federal rules restrict any use of the information to criminally investigate or prosecute any alcohol or drug abuse patient.[facility] Reason for Visit * Reason Comments Refill Request Encounter Details Date Type Department Care Team (Late st Contact Info) Description 04/01/2024 Refill Hematology/Oncology [address] [place] [address] [place] [address] Marco A Esqueda MD Refill Request [...] is lower risk 7 02/02/2023 Data from: https://www.neighborhoodatlas.medicine.[facility]/. Last address used for calculation [address] [...] Description 05/15/2025 11:30 AM EDT Office Visit [facility] [address] [place] [address] [place] [address] 3 month lab 05/22/2025 11:00 AM EST Visit (SP) Office Hematology/Oncology [facility] [place] [place] [address] Chary Hodge, TEACHING ASSISTANT.COMMUNICATIONS PROGRAM MANAGER [address] [place] [address] 3 month follow up with xgeva inj 05/22/2025 11:30 AM EST Infusion Center Hematology/Oncology [facility] [place] [place] [address] 3 month follow up with xgeva inj documented as of this encounter Visit Diagnoses Not on filedocumented in this encounter Care Teams Fitness Sales Associate Relationship Specialty Start Date End Date Jamar Jones DO PCP - General Internal Medicine 08/04/14 Marco A Esqueda MD Physician Hematology/Oncology 11/02/21 01/20/25 Galina Wall, TEACHING ASSISTANT.COMMUNICATIONS PROGRAM MANAGER [facility] [place] [place] [address] Nurse Practitioner Hematology/Oncology 11/02/21 Clementine Aguilar, ANITHA [address] [place] [address] Specialty Art Class Model Hematology/Oncology 11/02/21 Saul Galdamez MD [facility] [place] [address] [place] [address] Physician Hematology/Oncology 01/21/25 documented as of this encounter
--- OUTSIDE RECORDS SUMMARY | 2025-02-27 08:09 | XMS_ITS | Encounter Summary ---
Author Organization [facility] Address [address] [facility] [place] [address] Care Team Providers Care Factory Maintenance Manager Name Role Phone Jamar Jones DO Primary Care Provider [phone] Encounter Details Date Type Department Care Team (Latest Contact Info) Description 02/18/2025 Travel Social History Tobacco Use Types Packs/Day [...] on file documented as of this encounter Plan of Treatment Upcoming Encounters Date Type Department Care Team (Late st Contact Info) Description 02/26/2026 10:25 AM EDT Office Visit [facility] [address] [facility] [address] [place] [address] Deisy Boo APRN-ALEXA [address] [facility] [address] [address] [place] [address] documented as of this encounter Visit Diagnoses Not on filedocumented in this encounter Care Teams Factory Maintenance Manager Relationship Specialty Start Date End Date Jamar Jones DO [address] [place] [address] PCP - General Internal Medicine 05/31/23 documented as of this encounter
--- OUTSIDE RECORDS SUMMARY | 2025-02-27 08:10 | XMS_ITS | Encounter Summary ---
Author Organization [facility] Address [address] [place] [address] Care Team Providers Care Audit Intern Name Role Phone Jamar Jones DO Primary Care Provider [phone] Encounter Details Date Type Department Care Team (Late Contact Info) Description 02/25/2025 Bamboo flowsheet [facility] [address] [facility] [address] [place] [address] Deisy Boo APRN-PHYSICAL THER [address] [facility] [address] [place] [address] Social History Tobacco Use Types Packs/Day Years [...] Encounters Date Type Department Care Team (Late Contact Info) Description 02/26/2026 10:25 AM EDT Office Visit [facility] [address] [facility] [address] [place] [address] Deisy Boo, [employer] SOFTWARE DEVELOPER-PHYSICAL THER [address] [place] [address] documented as of this encounter Visit Diagnoses Not on filedocumented in this encounter Care Teams Audit Intern Relationship Specialty Start Date End Date Jamar Jones DO [address] [facility] [place] [id number] PCP - General Internal Medicine 05/31/23 documented as of this encounter
--- OUTSIDE RECORDS SUMMARY | 2025-02-27 08:10 | XMS_ITS | CCD ---
Author Organization [facility] Care Team Providers Care Lna Name Role Phone Jamar Fall DO Primary Care Provider Marco A Esqueda MD R Unavailable [facility] [employer].ALEXA, Christo Unavailable [phone] Lauren WELSH, Clementine Unavailable JAMAR FALL Primary Care Physician [phone] Jamar Fall DO Primary Care Provider Marco A Esqueda MD R Unavailable [phone] [facility] [employer].BRAKE LINING MAKER, Christo Unavailable [phone] Lauren WELSH, Clementine Unavailable Jamar Fall DO Primary Care Provider Dheeraj JAMES, Marco A R Unavailable [phone] [facility] [employer].ALEXA, Christo Unavailable Lauren WELSH, Clementine Unavailable Jamar [...] Consulting Unavaila ble Lauren RN, Clementine Unavailable [phone] Brandon Fall MD, Jamar Lopez Primary Care Provider Jamar Fall DO Primary Care Provider LONG BOO Attending Unavailable MARCO A ESQUEDA Referring Unavailable TIMMIEMELINA Barnett Attending Unavailable BALL, JAMAR E Referring Unavailable CHRISTINAPABLO SQUIRES Attending Unavailable LONG BOO Attending Unavailable ALEXIA FRANCO Attending Unavailable ELTARODNEY, BRIDGER Attending Unavailable LORA ENGLISH Attending Unavailable SCRUGGSAnthony R Attending Unavailable SCRUGGS, Anthony R Attending Unavailable SCRUGGS, Anthony Lee Attending Unavailable SCRUGGS, Anthony R Attending Unavailable Sharon JAMES, Nicole Lang Attending Unavailable Sharon JAMES, Nicole Lang Attending Unavailable BALL, JAMAR E Primary Care Unavailable MARCO A ESQUEDA Attending Unavailabl e MARCO A ESQUEDA Referring Unavailabl e ABHYANKAR, SAUL Referring Unavailable BALL, JAMAR E Primary Care Unavailable BALL, JAMAR E Primary Care Unavailable MARCO A ESQUEDA Referring Unavailabl e ABHYANKAR, SAUL Attending Unavailable ABHYANKAR, SAUL Referring Unavailable BALL, JAMAR E Primary Care [...] Unavailable BALL, JAMAR E Primary Care Unavailable Ball DO, Jamar E Primary Care Provider Allergies Allergy Classification Reported Allergen(s) Allergy Type Date of Onset Reaction(s) Facility (18 sources) Penicillins; Translations: [PENICILLINS] Drug Allergy 1 Unknown [facility] (20 sources) Penicillin G; Translations: [penicillin G benzathine] Drug Allergy 1 Unknown (qualifier value) [facility] (20 sources) Penicillins Drug Allergy 5 Unknown [facility] (20 sources) Simvastatin; Translations: [SIMVASTATIN] Drug Allergy 2 Unknown [facility] (1 source) Penicillins Drug allergy (disorder) 5 [facility] (1 source) Penicillin Drug Allergy Unknown [facility] Other (1 source) Allergies Reconciled Propensity to adverse reactions Unknown 1[employer]618 [employer] Other (1 source) patient allergy list reviewed by nurse or physicia Propensity to adverse reactions 9 Comment:Done 1.618 [employer] Other (6 sources) Simvastatin Propensity to adverse reactions 2 [facility] (1 source) Penicillins Drug Allergy 5 Unknown [facility] Medications Current Medications Medication Drug Class(es) Dates [...] tablet (20 sources) HMG-CoA Reductase Inhibitor Start: 5 take 1 tablet by mouth once daily [...] on above: Take 2 tablets by mo [facility] once daily. Contour Next - (20 sources) [...] tablets (160 mg) by mouth once daily. fluocinonide 0.5 mg/ml topical cream (3 sources) Corticosteroid Start: 02-26-20 End: 02-26-20 25 fluocinonide (Lidex) 0.05 % cream Indications: Psoriasis vulgaris Apply topically 2 (two) times a day 60 g 11 02/26/2024 02/25/2025 Active fluorouracil 50 mg/ml topical cream (5 sources) Nucleoside Metabolic Inhibitor Start: 08-28-19 fluorouracil (Efudex) 5 % cream Indications: Actinic keratosis Apply to directed areas on the face, ears and back of hands twice a day x 14 days. Dispense 30 day supply but only use for 14 days. 40 g 08/28/2023 Active glimepiride 1 mg oral tablet (20 sources) Sulfonylurea Start: 08-02-19 take 0.5 tablet by mouth once daily at breakfast Glimepiride 1 mg tablet Active 0 .ROUTE .COMPLEX 15 August 02, 2024 2:03pm TAKE 1/2 TABLET BY MOUTH DAILY 30 MINUTES PRIOR TO BREAKFAST Start: 09-08-2023 take 0.5 mg by mouth once daily Glimepiride Active 0.5 MG PO Daily September 08, 2023 1:00am Start: 10-15-2021 End: 08-02-2024 take 0.5 mg by mouth once daily Glimepiride 1 mg tablet Discontinued 0.5 MG PO Daily September 08, 2023 12:00am August 02, 2024 2:03pm Start: 10-15-2021 take 0.5 mg by mouth once daily GLIMEPIRIDE ORAL Take 0.5 mg by mouth once daily. 10/15/2021 Active Start: 10-15-2021 take 0.5 mg by mouth once daily GLIMEPIRIDE ORAL Take 0.5 mg by mouth [...] tablet by mouth in the morning. Active take 1 tablet by anupama th once daily Lisinopril-hydroCHLOROthiazide 20-12.5 M G TAKE 1 TABLET BY MOUTH EVERY DAY Active Comment on above: Take 1 tablet by anupama th once daily. ipratropium bromide 0.042 mg/actuat metered dose nasal spray (17 sources) Anticholinergic Start: 10-20-2023 ipratropium Nasal 0.06% [place] Refill(s) 0 Start Date: 10/20/23 Status: Ordered Start: 06-05-2023 End: 06-04-2024 take 2 spray(s) nasal route in the morning, then take 2 spray(s) nasal route in the evening, then take 2 spray(s) nasal route at bedtime ipratropium (Atrovent) 0.06 % nasal spray Indications: Vasomotor rhinitis Administer 2 sprays into each nostril in the morning and 2 sprays in the evening and 2 sprays before bedtime. 45 mL 3 06/05/2023 Active Start: 06-05-2023 End: 06-04-2024 ipratropium bromide (ATROVEN T) 42 mcg (0.06 %) nasal spray 2 Sprays. 06/05/2023 06/04/2024 Active Comment on above: 2 [...] Start: 08-17-2021 take 2 tablets by mo [facility] once daily at mealtime metFORMIN (GLUCOPHAGE) 500 [...] Do not crush, chew, or split. Active metFORMIN HCl 50 0 MG 1 [...] by mouth every 12 (twelve) hours Active End: 05-12-2022 take 1 tablet by mouth twice daily Metoprolol Tartrate 25 MG TAKE 1 TABLET BY MOUTH TWICE A DAY Active Comment on above: Take 25 mg by mouth. Take 25 mg by mouth twice daily. Take by mouth. Vlxtosguulabb-Rgbuzitt-Ephgp n (MULTIVITAMIN 50 PLUS) tab (20 sources) [...] Comment on above: Take 1 tablet by [facility] twice daily. clopidogrel 75 mg oral tablet [...] Coronary arteriosclerosis; Translations: [Atherosclerotic heart disease of [place] coronary artery without angina pectoris] Onset: 10-10-2014 01-01-2019 Chronic Deficiency and other anemia (1 source) Anemia, unspecified; Translations: [Anemia, unspecified type] Onset: 02-20-2025 Episodic Diabetes mellitus with complications (20 sources) Type 2 diabetes mellitus; Translations: [Type 2 diabetes mellitus with hyperglycemia] Onset: 07-17-1959 Chronic Diabetes mellitus without complication (19 sources) Type 2 diabetes mellitus without complication; [...] above: Echo: ROGER 1.13, [place] 324, 42/ - 04/2022Echo: ROGER 1.3, Velocity 280, gradient 30/18 - 06/2023 Hyperplasia of prostate (2 sources) [...] Translations: [Primary osteoarthritis, right shoulder] Chronic Other and unspecified benign neoplasm (2 sources) Melanocytic nevus of trunk; Translations: [Melanocytic nevi of trunk] 02-25-2025 Episodic Other circulatory disease (2 sources) Cardiovascular symptoms; [...] Chronic Other ear and sense organ disorders (6 sources) Sensorineural hearing loss, bilateral; Translations: [Sensorineural hearing loss, bilateral] Onset: 06-01-2023 06-01-2023 Chronic Other ear and sense organ disorders (1 source) Impacted cerumen, right ear Episodic Other ear and sense organ disorders (1 source) Lesion of skin of right ear; Translations: [Disorder of right external ear, unspecified] 11-02-2023 Episodic Other eye disorders (7 sources) Anisocoria; 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] Onset: 06-01-2023 06-01-2023 Chronic Other gastrointestinal disorders (1 source) Diarrhea; Translations: [Diarrhea, unspecified] 06-10-2024 Episodic Other gastrointestinal disorders (1 source) Diarrhea, unspecified; Translations: [Diarrhea] 06-10-2024 Episodic Other inflammatory condition of skin (2 sources) Psoriasis vulgaris; Translations: [Psoriasis vulgaris] 02-25-2025 Chronic Other injuries and conditions due to [...] tunnel syndrome, right upper limb Chronic Other non-epithelial cancer of skin (2 sources) History of squamous cell carcinoma of skin; Translations: [Personal history of other malignant neoplasm of skin] 02-25-2025 Episodic Other non-traumatic joint disorders (6 sources) Pain [...] Chronic Other nutritional; endocrine; and metabolic disorders (8 sources) Obesity; Translations: [Obesity, unspecified] Onset: 06-01-2023 [...] prostate] Onset: 11-08-2021 Episodic Other skin disorders (4 sources) Actinic keratosis; Translations: [Actinic keratosis] 08-28-2023 [...] swelling, mass, or lump] 09-12-2023 Episodic Other skin disorders (2 sources) Seborrheic keratosis; Translations: [Other seborrheic keratosis] 02-25-2025 Episodic Other skin disorders (2 sources) Lentiginosis; Translations: [Other melanin hyperpigmentation] 02-25-2025 Episodic Other upper respiratory disease (1 source) Seasonal allergic rhinitis; Translations: [Other seasonal allergic rhinitis] Onset: 11-01-2017 Chronic Other upper respiratory disease (7 sources) Vasomotor rhinitis; Translations: [Vasomotor rhinitis] Onset: [...] sleep apnea (adult)(pediatric)] Chronic Residual codes; unclassified (6 sources) Sleep apnea; Translations: [Sleep apnea, unspecified] Onset: 06-01-2023 06-01-2023 Chronic Secondary malignancies (8 sources) Secondary malignant neoplasm of bone; Translations: [Secondary malignant neoplasm of bone] Chronic Secondary malignancies (3 sources) Secondary malignant neoplasm of bone; Translations: [Secondary malignant neoplasm of bone (HCC)] Onset: 02-20-2025 Chronic Spondylosis; intervertebral disc disorders; other back problems (20 sources) Cervical spondylosis; Translations: [Other spondylosis with radiculopathy, cervical region] Onset: 07-24-2022 Chronic Spondylosis; intervertebral disc disorders; other back problems (5 sources) Neck pain; Translations: [Cervicalgia] Onset: 02-20-2025 11-23-2023 Episodic Sprains and strains (7 sources) Strain of hamstring muscle; Translations: [Right hamstring muscle strain] Episodic Unclassified (1 source) OPENED IN ERROR Unclassified (3 sources) Hearing loss; Translations: [Impaired hearing] Onset: 06-01-2023 06-01-2023 Past or Other Problems Problem Classification Problem [...] Interpretation Reference Range Facility No Panel [facility] 02-25 [facility] ([facility]) PABLO FELIX ([id number]) 1945 M Date Time Provider Department 02/20/25 10:20 AM SAUL TRACEY During your visit today, we recorded the following information about you: Temperature Pulse Respiration Blood pressure 97.6 degrees 60/minute 16/minute 130/84 Weight 91.4 kg Saul Tracey MD 02/20/2025 10:48 AM Signed NAME: Pablo Felix CLINIC NO.: [id number] DATE OF SERVICE: February 20, 2025 (Denice) Some elements in this clinic note that are critical to medical decision making have been carefully reviewed and included from a prior clinic note dated: 11/07/2024 (Dheeraj) Referring Provider: RADHA Additional Clinicians involved in Pablo Felix's care: Dr. Jamar Fall, Dr. Anthony Scruggs, Dr. Khan, [facility] Cardiology DIAGNOSIS: Metastatic prostate cancer CASE [...] continue Lupron every [address] Scruggs, next injection due 03/31/2025. For bone metastasis he will continue with Xgeva every 3 months. Injection today. Return in 3 months for follow-up. If the patient's PSA continues to increase will consider staging with a PSMA PET scan. If significant disease progression will then discuss options for alternative therapy. 2. 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 Stable on current medications. Continue per [...] 160 mg daily Continue Lupron with Dr. Scruggs as previously scheduled. AI Assisted A/P: 1. [...] daily. - Continue Lupron therapy with Dr. Scruggs. - Monitor PSA levels; if PSA reaches [...] with potential for dosage adjustment by Dr. Fall. - Continue current diabetic management. - Follow-up with Dr. Fall for potential medication adjustment. 3. Anemia, unspecified type (D64.9) Chronic mild anemia noted; renal function is normal. Ane (more content not included)... Normal [facility] CBC W Auto Differential pane l (Bld)on 2025 Basophils (Bld) [#/Vol] 0.03 10*3/uL Normal <0.11 [facility] Comment on above: Order Comment: Speci men Type: BLOOD SPECIMEN Ordering Facility: [facility] Address: [address] [place], [place] [id number] Performed By: #### 2 857-1 #### [facility] CLIA [id number] [address] [place] [address] [place] Basophils/100 WBC (Bld) 0.4 % Normal [facility] Comment on above: Order Comment: Speci men Type: BLOOD SPECIMEN Ordering Facility: [facility] Address: [address] [place] [address] Performed By: #### 2 857-1 #### [facility] CLIA [id number] [address] [place] [address] [place] Differential cell count method Nom (Bld) Auto Normal [facility] Comment on above: Order Comment: Speci men Type: BLOOD SPECIMEN Ordering Facility: [facility] Address: [address] [place] [address] Performed By: #### 2 857-1 #### [facility] CLIA [id number] [address] [place] [address] [place] Eosinophils (Bld) [#/Vol] 0.53 10*3/uL High <0.46 [facility] Comment on above: Order Comment: Speci men Type: BLOOD SPECIMEN Ordering Facility: [facility] Address: [address] [place] [address] Performed By: #### 2 857-1 #### [facility] CLIA [id number] [address] [place] [address] [place] Eosinophils/100 WBC (Bld) 7.5 % Normal [facility] Comment on above: Order Comment: Speci men Type: BLOOD SPECIMEN Ordering Facility: [facility] Address: [address] [place] [address] Performed By: #### 2 857-1 #### [facility] CLIA [id number] [address] [place] [address] [place] Erythrocyte distribution width (RBC) [Ratio] 12.7 % Normal 11.5-15.0 [facility] Comment on above: Order Comment: Speci men Type: BLOOD SPECIMEN Ordering Facility: [facility] Address: [address] [place] [address] Performed By: #### 2 857-1 #### [facility] CLIA [id number] [address] [place] [address] [place] Hematocrit (Bld) [Volume fraction] 35.3 % Low 39.0-51.0 [facility] Comment on above: Order Comment: Speci men Type: BLOOD SPECIMEN Ordering Facility: [facility] Address: [address] [place] [address] Performed By: #### 2 857-1 #### [facility] CLIA [id number] [address] [place] [address] [place] Hemoglobin (Bld) [Mass/Vol] 12.0 g/dL Low 13.0-17.0 [facility] Comment on above: Order Comment: Speci men Type: BLOOD SPECIMEN Ordering Facility: [facility] Address: [address] [place] [address] Performed By: #### 2 857-1 #### [facility] CLIA [id number] [address] [place] [address] [place] Immature granulocytes (Bld) [#/Vol] 0.06 10*3/uL Normal <0.10 [facility] Comment on above: Order Comment: Speci men Type: BLOOD SPECIMEN Ordering Facility: [facility] Address: [address] [place] [address] Performed By: #### 2 857-1 #### [facility] CLIA [id number] [address] [place] [address] [place] Immature granulocytes/100 WBC (Bld) 0.8 % Normal [facility] Comment on above: Order Comment: Speci men Type: BLOOD SPECIMEN Ordering Facility: [facility] Address: [address] [place] [address] Performed By: #### 2 857-1 #### [facility] CLIA [id number] [address] [place] [address] [place] Lymphocytes (Bld) [#/Vol] 2.09 10*3/uL Normal 1.00-4.00 [facility] Comment on above: Order Comment: Speci men Type: BLOOD SPECIMEN Ordering Facility: [facility] Address: [address] [place] [address] Performed By: #### 2 857-1 #### [facility] CLIA [id number] [address] [place] [address] [place] Lymphocytes/100 WBC (Bld) 29.5 % Normal [facility] Comment on above: Order Comment: Speci men Type: BLOOD SPECIMEN Ordering Facility: [facility] Address: [address] [place] [address] Performed By: #### 2 857-1 #### [facility] CLIA [id number] [address] [place] [address] [place] MCH (RBC) [Entitic mass] 32.5 pg Normal 26.0-34.0 [facility] Comment on above: Order Comment: Speci men Type: BLOOD SPECIMEN Ordering Facility: [facility] Address: [address] [place] [address] Performed By: #### 2 857-1 #### [facility] CLIA [id number] [address] [place] [address] [place] MCHC (RBC) [Mass/Vol] 34.0 g/dL Normal 30.5-36.0 [facility] Comment on above: Order Comment: Speci men Type: BLOOD SPECIMEN Ordering Facility: [facility] Address: [address] [place] [address] Performed By: #### 2 857-1 #### [facility] CLIA [id number] [address] [place] [address] [place] MCV (RBC) [Entitic vol] 95.7 fL Normal 80.0-100.0 [facility] Comment on above: Order Comment: Speci men Type: BLOOD SPECIMEN Ordering Facility: [facility] Address: [address] [place] [address] Performed By: #### 2 857-1 #### [facility] CLIA [id number] [address] [place] [address] [place] Monocytes (Bld) [#/Vol] 0.68 10*3/uL Normal <0.87 [facility] Comment on above: Order Comment: Speci men Type: BLOOD SPECIMEN Ordering Facility: [facility] Address: [address] [place] [address] Performed By: #### 2 857-1 #### [facility] CLIA [id number] [address] [place] [address] [place] Monocytes/100 WBC (Bld) 9.6 % Normal [facility] Comment on above: Order Comment: Speci men Type: BLOOD SPECIMEN Ordering Facility: [facility] Address: [address] [place] [address] Performed By: #### 2 857-1 #### [facility] CLIA [id number] [address] [place] [address] [place] Neutrophils (Bld) [#/Vol] 3.70 10*3/uL Normal 1.45-7.50 [facility] Comment on above: Order Comment: Speci men Type: BLOOD SPECIMEN Ordering Facility: [facility] Address: [address] [place] [address] Performed By: #### 2 857-1 #### [facility] CLIA [id number] [address] [place] [address] [place] Neutrophils/100 WBC (Bld) 52.2 % Normal [facility] Comment on above: Order Comment: Speci men Type: BLOOD SPECIMEN Ordering Facility: [facility] Address: [address] [place] [address] Performed By: #### 2 857-1 #### [facility] CLIA [id number] [address] [place] [address] [place] Nucleated RBC (Bld) [#/Vol] 10*3/uL Normal <0.01 [facility] Comment on above: Order Comment: Speci men Type: BLOOD SPECIMEN Ordering Facility: [facility] Address: [address] [place] [address] Performed By: #### 2 857-1 #### [facility] CLIA [id number] [address] [place] [address] [place] Nucleated RBC/100 WBC (Bld) [Ratio] 0.0 /100 WBC Normal [facility] Comment on above: Order Comment: Speci men Type: BLOOD SPECIMEN Ordering Facility: [facility] Address: [address] [place] [address] Performed By: #### 2 857-1 #### [facility] CLIA [id number] [address] [place] [address] [place] Platelet mean volume (Bld) [Entitic vol] 10.1 fL Normal 9.0-12.7 [facility] Comment on above: Order Comment: Speci men Type: BLOOD SPECIMEN Ordering Facility: [facility] Address: [address] [place] [address] Performed By: #### 2 857-1 #### [facility] CLIA [id number] [address] [place] [address] [place] Platelets (Bld) [#/Vol] 204 10*3/uL Normal 150-400 [facility] Comment on above: Order Comment: Speci men Type: BLOOD SPECIMEN Ordering Facility: [facility] Address: [address] [place] [address] Performed By: #### 2 857-1 #### [facility] CLIA [id number] [address] [place] [address] [place] RBC (Bld) [#/Vol] 3.69 10*6/uL Low 4.20-6.00 [facility] Comment on above: Order Comment: Speci men Type: BLOOD SPECIMEN Ordering Facility: [facility] Address: [address] [place] [address] Performed By: #### 2 857-1 #### [facility] CLIA [id number] [address] [place] [address] [place] WBC (Bld) [#/Vol] 7.09 10*3/uL Normal 3.70-11.00 [facility] Comment on above: Order Comment: Speci men Type: BLOOD SPECIMEN Ordering Facility: [facility] Address: [address] [place] [address] Performed By: #### 2 857-1 #### [facility] CLIA [id number] [address] [place] [address] [place] Comprehensive metabolic 2000 panelon 2025 Albumin [Mass/Vol] 4.2 g/dL Normal 3.9-4.9 [facility] Comment on above: Order Comment: Speci men Type: BLOOD SPECIMEN Ordering Facility: [facility] Address: [address] [place] [address] Performed By: #### 2 857-1 #### [facility] CLIA [id number] [address] [place] [address] [place] ALP [Catalytic activity/Vol] 73 U/L Normal 38-113 [facility] Comment on above: Order Comment: Speci men Type: BLOOD SPECIMEN Ordering Facility: [facility] Address: [address] [place] [address] Performed By: #### 2 857-1 #### [facility] CLIA [id number] [address] [place] [address] [place] ALT [Catalytic activity/Vol] 16 U/L Normal 10-54 [facility] Comment on above: Order Comment: Speci men Type: BLOOD SPECIMEN Ordering Facility: [facility] Address: [address] [place] [address] Performed By: #### 2 857-1 #### [facility] CLIA [id number] [address] [place] [address] [place] Anion gap [Moles/Vol] 10 mmol/L Normal 8-15 [facility] Comment on above: Order Comment: Speci men Type: BLOOD SPECIMEN Ordering Facility: [facility] Address: [address] [place] [address] Performed By: #### 2 857-1 #### [facility] CLIA [id number] [address] [place] [address] [place] AST [Catalytic activity/Vol] 17 U/L Normal 14-40 [facility] Comment on above: Order Comment: Speci men Type: BLOOD SPECIMEN Ordering Facility: [facility] Address: [address] [place] [address] Performed By: #### 2 857-1 #### [facility] CLIA [id number] [address] [place] [address] [place] Bilirubin [Mass/Vol] 0.6 mg/dL Normal 0.2-1.3 [facility] Comment on above: Order Comment: Speci men Type: BLOOD SPECIMEN Ordering Facility: [facility] Address: [address] [place] [address] Performed By: #### 2 857-1 #### [facility] CLIA [id number] [address] [place] [address] [place] Calcium [Mass/Vol] 9.3 mg/dL Normal 8.5-10.2 [facility] Comment on above: Order Comment: Speci men Type: BLOOD SPECIMEN Ordering Facility: [facility] Address: [address] [place] [address] Performed By: #### 2 857-1 #### [facility] CLIA [id number] [address] [place] [address] [place] Chloride [Moles/Vol] 101 mmol/L Normal 98-107 [facility] Comment on above: Order Comment: Speci men Type: BLOOD SPECIMEN Ordering Facility: [facility] Address: [address] [place] [address] Performed By: #### 2 857-1 #### [facility] CLIA [id number] [address] [place] [address] [place] CO2 [Moles/Vol] 25 mmol/L Normal 22-30 [facility] Comment on above: Order Comment: Speci men Type: BLOOD SPECIMEN Ordering Facility: [facility] Address: [address] [place] [address] Performed By: #### 2 857-1 #### [facility] CLIA [id number] [address] [place] [address] [place] Creatinine [Mass/Vol] 0.68 mg/dL Low 0.73-1.22 [facility] Comment on above: Order Comment: Speci men Type: BLOOD SPECIMEN Ordering Facility: [facility] Address: [address] [place] [address] Performed By: #### 2 857-1 #### [facility] CLIA [id number] [address] [place] [address] [place] eGFRcr SerPlBld CKD-EPI 2020 95 mL/min/1.73m??? Normal >=60 [facility] Comment on above: Order Comment: Speci men Type: BLOOD SPECIMEN Ordering Facility: [facility] Address: [address] [place] [address] Result Comment: Renae mated Glomerular Filtration Rate [...] GFR. Performed By: #### 2 857-1 #### [facility] CLIA [id number] [address] [place] [address] [place] Glucose [Mass/Vol] 122 mg/dL High 74-99 [facility] Comment on above: Order Comment: Nicanor camilo Type: BLOOD SPECIMEN Ordering Facility: [facility] Address: [address] [place] [address] Result Comment: The [place] [employer] (ADA) provides guidance for cutoff [...] Standards of Medical Care in Diabetes 2016, [place] [employer]. Diabetes Care. 2016.39(Suppl 1). Performed By: #### 2 857-1 #### [facility] CLIA [id number] [address] [place] [address] [place] Potassium [Moles/Vol] 4.5 mmol/L Normal 3.7-5.1 [facility] Comment on above: Order Comment: Nicanor camilo Type: BLOOD SPECIMEN Ordering Facility: [facility] Address: [address] [place] [address] Performed By: #### 2 857-1 #### [facility] [place] [id number] [address] [place], [place] [id number] [place] Protein [Mass/Vol] 6.4 g/dL Normal 6.3-8.0 [facility] Comment on above: Order Comment: Nicanor camilo Type: BLOOD SPECIMEN Ordering Facility: [facility] Address: [address] [place] [address] Performed By: #### 2 857-1 #### [facility] [place] [id number] [address] [place] [address] [place] Sodium [Moles/Vol] 136 mmol/L Normal 136-144 [facility] Comment on above: Order Comment: Speci men Type: BLOOD SPECIMEN Ordering Facility: [facility] Address: [address] [place] [address] Performed By: #### 2 857-1 #### [facility] CLIA [id number] [address] [place] [address] [place] Urea nitrogen [Mass/Vol] 14 mg/dL Normal 9-24 [facility] Comment on above: Order Comment: Speci men Type: BLOOD SPECIMEN Ordering Facility: [facility] Address: [address] [place] [address] Performed By: #### 2 857-1 #### [facility] CLIA [id number] [address] [place] [address] [place] PSA SerPl-ncon 2025 Prostate specific Ag [Mass/Vol] 0.26 ng/mL Normal <2.60 [facility] Comment on above: Order Comment: Speci men Type: BLOOD SPECIMEN Ordering Facility: [facility] Address: [address] [place] [address] Result Comment: Tota l PSA test methodology used is the Electrochemiluminescence Immunoassay by [employer]. Total PSA values by differing methodologies cannot be interchanged. Performed By: #### 2 857-1 #### [facility] CLIA [id number] [address] [place] [address] [place] CNOVSPon 11-07-2024 CNOVSP Visit (SP) Office (H EMA) PABLO FELIX ([id number]) 1945 M Date Time Provider Department 11/07/24 [...] OTHER PHYSICIANS: Dr. Anthony Scruggs, Dr. Khan, [facility] Cardiology Portions of this encounter note [...] mg 24 hr tablet Take by mouth. 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 Left base margin positive for neoplasm. Seminal vesicles with no diagnostic abnormality. 2 resected lymph nodes negative for neoplasm. LABS: Hemoglobin (g/dL) Date Value 10/31/2024 12.4 05/08/2018 12.8 Hem (more content not included)... Normal [facility] CBC W Auto Differential pane l (Bld)on 10-31-2024 Basophils (Bld) [#/Vol] 0.05 10*3/uL Normal <0.11 [facility] Comment on above: Order Comment: Speci men Type: BLOOD SPECIMEN Ordering Facility: [facility] Address: [facility] [place] [address] Performed By: #### 5 7021-8 #### [facility] CLIA [id number] [address] [place] [address] Basophils/100 WBC (Bld) 0.7 % Normal [facility] Comment on above: Order Comment: Speci men Type: BLOOD SPECIMEN Ordering Facility: [facility] Address: [address] [place] [address] Performed By: #### 5 7021-8 #### [facility] CLIA [id number] [address] [place] [address] Differential cell count method Nom (Bld) Auto Normal [facility] Comment on above: Order Comment: Speci men Type: BLOOD SPECIMEN Ordering Facility: [facility] Address: [address] [place] [address] Performed By: #### 5 7021-8 #### [facility] CLIA [id number] [address] [place] [address] Eosinophils (Bld) [#/Vol] 0.51 10*3/uL High <0.46 [facility] Comment on above: Order Comment: Speci men Type: BLOOD SPECIMEN Ordering Facility: [facility] Address: [address] [place] [address] Performed By: #### 5 7021-8 #### [facility] CLIA [id number] [address] [place] [address] Eosinophils/100 WBC (Bld) 7.3 % Normal [facility] Comment on above: Order Comment: Speci men Type: BLOOD SPECIMEN Ordering Facility: [facility] Address: [address] [place] [address] Performed By: #### 5 7021-8 #### [facility] CLIA [id number] [address] [place] [address] Erythrocyte distribution width (RBC) [Ratio] 12.9 % Normal 11.5-15.0 [facility] Comment on above: Order Comment: Speci men Type: BLOOD SPECIMEN Ordering Facility: [facility] Address: [address] [place] [address] Performed By: #### 5 7021-8 #### [facility] CLIA [id number] [address] [place] [address] Hematocrit (Bld) [Volume fraction] 36.0 % Low 39.0-51.0 [facility] Comment on above: Order Comment: Speci men Type: BLOOD SPECIMEN Ordering Facility: [facility] Address: [address] [place] [address] Performed By: #### 5 7021-8 #### [facility] CLIA [id number] [address] [place] [address] Hemoglobin (Bld) [Mass/Vol] 12.4 g/dL Low 13.0-17.0 [facility] Comment on above: Order Comment: Speci men Type: BLOOD SPECIMEN Ordering Facility: [facility] Address: [address] [place] [address] Performed By: #### 5 7021-8 #### [facility] CLIA [id number] [address] [place] [address] Immature granulocytes (Bld) [#/Vol] 0.04 10*3/uL Normal <0.10 [facility] Comment on above: Order Comment: Speci men Type: BLOOD SPECIMEN Ordering Facility: [facility] Address: [address] [place] [address] Performed By: #### 5 7021-8 #### [facility] CLIA [id number] [address] [place] [address] Immature granulocytes/100 WBC (Bld) 0.6 % Normal [facility] Comment on above: Order Comment: Speci men Type: BLOOD SPECIMEN Ordering Facility: [facility] Address: [address] [place] [address] Performed By: #### 5 7021-8 #### [facility] CLIA [id number] [address] [place] [address] 15489 Lymphocytes (Bld) [#/Vol] 1.80 10*3/uL Normal 1.00-4.00 [facility] Comment on above: Order Comment: Speci men Type: BLOOD SPECIMEN Ordering Facility: [facility] Address: [address] [place] [address] Performed By: #### 5 7021-8 #### [facility] CLIA [id number] [address] [place] [address]7812 Lymphocytes/100 WBC (Bld) 25.8 % Normal [facility] Comment on above: Order Comment: Speci men Type: BLOOD SPECIMEN Ordering Facility: [facility] Address: [address] [place] [address] Performed By: #### 5 7021-8 #### [facility] CLIA [id number] [address] [place] [address] 44572 MCH (RBC) [Entitic mass] 32.2 pg Normal 26.0-34.0 [facility] Comment on above: Order Comment: Speci men Type: BLOOD SPECIMEN Ordering Facility: [facility] Address: [address] [place] [address] Performed By: #### 5 7021-8 #### [facility] CLIA [id number] [address] [place] [address] 85234 MCHC (RBC) [Mass/Vol] 34.4 g/dL Normal 30.5-36.0 [facility] Comment on above: Order Comment: Speci men Type: BLOOD SPECIMEN Ordering Facility: [facility] Address: [address] [place] [address] Performed By: #### 5 7021-8 #### [facility] CLIA [id number] [address] [place] [address]6414 MCV (RBC) [Entitic vol] 93.5 fL Normal 80.0-100.0 [facility] Comment on above: Order Comment: Speci men Type: BLOOD SPECIMEN Ordering Facility: [facility] Address: [address] [place] [address] Performed By: #### 5 7021-8 #### [facility] CLIA [id number] [address] [place] [address] 38935 Monocytes (Bld) [#/Vol] 0.69 10*3/uL Normal <0.87 [facility] Comment on above: Order Comment: Speci men Type: BLOOD SPECIMEN Ordering Facility: [facility] Address: [address] [place] [address] Performed By: #### 5 7021-8 #### [facility] CLIA [id number] [address] [place] [address] 06709 Monocytes/100 WBC (Bld) 9.9 % Normal [facility] Comment on above: Order Comment: Speci men Type: BLOOD SPECIMEN Ordering Facility: [facility] Address: [address] [place] [address] Performed By: #### 5 7021-8 #### [facility] CLIA [id number] [address] [place] [address]303 Neutrophils (Bld) [#/Vol] 3.90 10*3/uL Normal 1.45-7.50 [facility] Comment on above: Order Comment: Speci men Type: BLOOD SPECIMEN Ordering Facility: [facility] Address: [address] [place] [address] Performed By: #### 5 7021-8 #### [facility] CLIA [id number] [address] [place] [address] Neutrophils/100 WBC (Bld) 55.7 % Normal [facility] Comment on above: Order Comment: Speci men Type: BLOOD SPECIMEN Ordering Facility: [facility] Address: [address] [place] [address] Performed By: #### 5 7021-8 #### [facility] CLIA [id number] [address] [place] [address] 78362 Nucleated RBC (Bld) [#/Vol] 10*3/uL Normal <0.01 [facility] Comment on above: Order Comment: Speci men Type: BLOOD SPECIMEN Ordering Facility: [facility] Address: [address] [place] [address] Performed By: #### 5 7021-8 #### [facility] CLIA [id number] [address] [place] [address] 20897 Nucleated RBC/100 WBC (Bld) [Ratio] 0.0 /100 WBC Normal [facility] Comment on above: Order Comment: Speci men Type: BLOOD SPECIMEN Ordering Facility: [facility] Address: [address] [place] [address] Performed By: #### 5 7021-8 #### [facility] CLIA [id number] [address] [place] [address] 50459 Platelet mean volume (Bld) [Entitic vol] 9.8 fL Normal 9.0-12.7 [facility] Comment on above: Order Comment: Speci men Type: BLOOD SPECIMEN Ordering Facility: [facility] Address: [address] [place] [address] Performed By: #### 5 7021-8 #### [facility] CLIA [id number] [address] [place] [address] 40568 Platelets (Bld) [#/Vol] 204 10*3/uL Normal 150-400 [facility] Comment on above: Order Comment: Speci men Type: BLOOD SPECIMEN Ordering Facility: [facility] Address: [address] [place] [address] Performed By: #### 5 7021-8 #### [facility] CLIA [id number] [address] [place] [address] RBC (Bld) [#/Vol] 3.85 10*6/uL Low 4.20-6.00 [facility] Comment on above: Order Comment: Speci men Type: BLOOD SPECIMEN Ordering Facility: [facility] Address: [address] [place] [address] Performed By: #### 5 7021-8 #### [facility] CLIA [id number] [address] [place] [address] 44163 WBC (Bld) [#/Vol] 6.99 10*3/uL Normal 3.70-11.00 [facility] Comment on above: Order Comment: Speci men Type: BLOOD SPECIMEN Ordering Facility: [facility] Address: [address] [place] [address] Performed By: #### 5 7021-8 #### [facility] CLIA [id number] [address] [place] [address] 92389 Comprehensive metabolic 2000 panelon 10-31-2024 Albumin [Mass/Vol] 4.1 g/dL Normal 3.9-4.9 [facility] Comment on above: Order Comment: Speci men Type: BLOOD SPECIMEN Ordering Facility: [facility] Address: [address] [place] [address] Performed By: #### 2 857-1 #### [facility] CLIA [id number] [address] [place] [address] [place] ALP [Catalytic activity/Vol] 84 U/L Normal 38-113 [facility] Comment on above: Order Comment: Speci men Type: BLOOD SPECIMEN Ordering Facility: [facility] Address: [address] [place] [address] Performed By: #### 2 857-1 #### [facility] CLIA [id number] [address] [place] [address] [place] ALT [Catalytic activity/Vol] 18 U/L Normal 10-54 [facility] Comment on above: Order Comment: Speci men Type: BLOOD SPECIMEN Ordering Facility: [facility] Address: [facility] [place] [address] Performed By: #### 2 857-1 #### [facility] CLIA [id number] [address] [place] [address] [place] Anion gap [Moles/Vol] 12 mmol/L Normal 8-15 [facility] Comment on above: Order Comment: Speci men Type: BLOOD SPECIMEN Ordering Facility: [facility] Address: [address] [place] [address] Performed By: #### 2 857-1 #### [facility] CLIA [id number] [address] [place] [address] [place] AST [Catalytic activity/Vol] 18 U/L Normal 14-40 [facility] Comment on above: Order Comment: Speci men Type: BLOOD SPECIMEN Ordering Facility: [facility] Address: [address] [place] [address] Performed By: #### 2 857-1 #### [facility] CLIA [id number] [address] [place] [address] [place] Bilirubin [Mass/Vol] 0.5 mg/dL Normal 0.2-1.3 [facility] Comment on above: Order Comment: Speci men Type: BLOOD SPECIMEN Ordering Facility: [facility] Address: [address] [place] [address] Performed By: #### 2 857-1 #### [facility] CLIA [id number] [address] [place] [address] [place] Calcium [Mass/Vol] 10.1 mg/dL Normal 8.5-10.2 [facility] Comment on above: Order Comment: Speci men Type: BLOOD SPECIMEN Ordering Facility: [facility] Address: [address] [place] [address] Performed By: #### 2 857-1 #### [facility] CLIA [id number] [address] [place] [address] [place] Chloride [Moles/Vol] 101 mmol/L Normal 98-107 [facility] Comment on above: Order Comment: Speci men Type: BLOOD SPECIMEN Ordering Facility: [facility] Address: [address] [place] [address] Performed By: #### 2 857-1 #### [facility] CLIA [id number] [address] [place] [address] [place] CO2 [Moles/Vol] 24 mmol/L Normal 22-30 [facility] Comment on above: Order Comment: Speci men Type: BLOOD SPECIMEN Ordering Facility: [facility] Address: [address] [place] [address] Performed By: #### 2 857-1 #### [facility] CLIA [id number] [address] [place] [address] [place] Creatinine [Mass/Vol] 0.88 mg/dL Normal 0.73-1.22 [facility] Comment on above: Order Comment: Speci men Type: BLOOD SPECIMEN Ordering Facility: [facility] Address: [address] [place] [address] Performed By: #### 2 857-1 #### [facility] CLIA [id number] [address] [place] [address] [place] Creatinine and Glomerular filtration rate.predicted panel (S/P/Bld) 88 mL/min/1.73m??? Normal >=60 [facility] Comment on above: Order Comment: Speci men Type: BLOOD SPECIMEN Ordering Facility: [facility] Address: [address] [place] [address] Result Comment: Renae mated Glomerular Filtration Rate [...] GFR. Performed By: #### 2 857-1 #### [facility] CLIA [id number] [address] [place] [address] [place] Glucose [Mass/Vol] 123 mg/dL High 74-99 [facility] Comment on above: Order Comment: Nicanor camilo Type: BLOOD SPECIMEN Ordering Facility: [facility] Address: [address] [place] [address] Result Comment: The [place] [employer] (ADA) provides guidance for cutoff [...] Standards of Medical Care in Diabetes 2016, [place] [employer]. Diabetes Care. 2016.39(Suppl 1). Performed By: #### 2 857-1 #### [facility] CLIA [id number] [address] [place] [address] [place] Potassium [Moles/Vol] 4.6 mmol/L Normal 3.7-5.1 [facility] Comment on above: Order Comment: Nicanor camilo Type: BLOOD SPECIMEN Ordering Facility: [facility] Address: [address] [place] [address] Performed By: #### 2 857-1 #### [facility] CLIA [id number] [address] [place] [address] [place] Protein [Mass/Vol] 6.5 g/dL Normal 6.3-8.0 [facility] Comment on above: Order Comment: Nicanor camilo Type: BLOOD SPECIMEN Ordering Facility: [facility] Address: [address] [place] [address] Performed By: #### 2 857-1 #### [facility] CLIA [id number] [address] [place] [address] [place] Sodium [Moles/Vol] 137 mmol/L Normal 136-144 [facility] Comment on above: Order Comment: Speci men Type: BLOOD SPECIMEN Ordering Facility: [facility] Address: [address] [place] [address] Performed By: #### 2 857-1 #### [facility] CLIA [id number] [address] [place] [address] [place] Urea nitrogen [Mass/Vol] 16 mg/dL Normal 9-24 [facility] Comment on above: Order Comment: Speci men Type: BLOOD SPECIMEN Ordering Facility: [facility] Address: [address] [place] [address] Performed By: #### 2 857-1 #### [facility] CLIA [id number] [address] [place] [address] [place] PSA SerPl-mCncon 10-31-2024 Prostate specific Ag [Mass/Vol] 0.22 ng/mL Normal <2.60 [facility] Comment on above: Order Comment: Speci men Type: BLOOD SPECIMEN Ordering Facility: [facility] Address: [address] [place] [address] Result Comment: Tota l PSA test methodology used is the Electrochemiluminescence Immunoassay by [employer]. Total PSA values by differing methodologies cannot be interchanged. Performed By: #### 2 857-1 #### [facility] CLIA [id number] [address] [place] [address] [place] Ambulatory Visit Summaryon [...] mg Tab) ipratropium nasal (ipratropium Nasal 0.06% [place]) metformin (metformin 1000 mg oral tablet) metoprolol [...] Anthony SCRUGGS MD Where: [facility] [address] [place] [address]- You Need to Schedule the Following Appointments Follow Up with Anthony SCRUGGS MD, URL When: Comments: 6 mos w/ PSA and Lupron Where: [facility] [address], [place] [address]- [phone] Medications What How Much When Instructions Unchanged [...] concerns Unchanged ipratropium nasal (ipratropium Nasal 0.06% [place]) Contact prescribing physician if questions or concerns [...] prostate cancer (more content not included)... Normal [facility] Urology Office/Clinic Noteon 10-07-2024 Urology Office/Clinic Note [...] [facility] [address], [place] [phone] Additional Instructions: 6 mos w/ PSA and Lupron Patient Education Hormone Suppression Therapy for Prostate Cancer IJeanine, personally scribed for Dr. Scruggs on 10/07/2024 09:59:19. . Documentation recorded by the scribeJeanine, accurately [...] 1 tab(s), Oral, Daily ipratropium Nasal 0.06% [place] metformin 1000 mg oral tablet, Oral, BID [...] virus vacc (more content not included)... Normal [facility] Comment on above: Result Comment: Elec tronically Signed By: Anthony SCRUGGS MD.br\Date and Time Signed: 10/07/24 10:00 EDT\.br\Electronically Co-Signed By: Jeanine Crandall.br\Date and Time Co-Signed: 10/07/24 09:59 EDT CNOVSPon 08-08-2024 CNOVSP Visit (SP) Office (H EMA) PABLO FELIX ([id number]) 1945 M Date Time Provider Department 08/08/24 [...] OTHER PHYSICIANS: Dr. Anthony Scruggs, Dr. Khan, [facility] Cardiology Portions of this encounter note [...] mg 24 hr tablet Take by mouth. 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 Left base margin positive for neoplasm. Seminal vesicles with no diagnostic abnormality. 2 resected lymph nodes negative for neoplasm. LABS: Hemoglobin (g/dL) Date Value 08/01/2024 12.2 05/08/2018 12.8 Hematoc (more content not included)... Normal [facility] Basophils Auto (Bld) [#/Vol] on 08-01-2024 Basophils (Bld) [#/Vol] Automated basophil count <0.11 [facility] Basophils/100 WBC Auto (Bld) on 08-01-2024 Basophils/100 WBC (Bld) Automated basophil % [facility] Blood manual differential co mment interpretation narrativeon 08-01-2024 Manual differential comment [place] (Bld) [Interp] Blood manual differential comment interpretation narrative [facility] CBC W Auto Differential pane l (Bld)on 08-01-2024 Basophils (Bld) [#/Vol] 0.03 10*3/uL [facility] Basophils/100 WBC (Bld) 0.5 % [facility] Differential cell count method Nom (Bld) Auto [facility] Eosinophils (Bld) [#/Vol] 0.5 10*3/uL High [facility] Eosinophils/100 WBC (Bld) 8.5 % [facility] [facility] Erythrocyte distribution width (RBC) [Ratio] 12.7 % 11.5 - 15.0 % [facility] Hematocrit (Bld) [Volume fraction] 35.7 % Low 39.0 - 51.0 % [facility] Hemoglobin (Bld) [Mass/Vol] 12.2 g/dL Low 13.0 - 17.0 g/dL [facility] Immature granulocytes (Bld) [#/Vol] 0.04 10*3/uL [facility] Immature granulocytes/100 WBC (Bld) 0.7 % [facility] Interpretation and review of laboratory results Abnormal [facility] Lymphocytes (Bld) [#/Vol] 1.55 10*3/uL [facility] Lymphocytes/100 WBC (Bld) 26.5 % [facility] MCH (RBC) [Entitic mass] 32.4 pg 26.0 - 34.0 pg [facility] MCHC (RBC) [Mass/Vol] 34.2 g/dL 30.5 - 36.0 g/dL [facility] MCV (RBC) [Entitic vol] 94.9 fL 80.0 - 100.0 fL [facility] Monocytes (Bld) [#/Vol] 0.55 10*3/uL [facility] Monocytes/100 WBC (Bld) 9.4 % [facility] Neutrophils (Bld) [#/Vol] 3.19 10*3/uL [facility] Neutrophils/100 WBC (Bld) 54.4 % [facility] Nucleated RBC (Bld) [#/Vol] NINF [facility] Nucleated RBC/100 WBC (Bld) [Ratio] 0 % /100 WBC [facility] Platelet mean volume (Bld) [Entitic vol] 9.4 fL 9.0 - 12.7 fL [facility] Platelets (Bld) [#/Vol] 177 10*3/uL [facility] RBC (Bld) [#/Vol] 3.76 10*6/uL Low 4.20 - 6.0 0 m/uL [facility] WBC (Bld) [#/Vol] 5.86 10*3/uL [facility] Basophils (Bld) [#/Vol] 0.03 10*3/uL Normal <0.11 [facility] Comment on above: Order Comment: Speci men Type: BLOOD SPECIMEN Ordering Facility: [facility] Address: [address] [place] [address] Performed By: #### 2 857-1 #### [facility] CLIA [id number] [address] [place] [address] [place] Basophils/100 WBC (Bld) 0.5 % Normal [facility] Comment on above: Order Comment: Speci men Type: BLOOD SPECIMEN Ordering Facility: [facility] Address: [address] [place] [address] Performed By: #### 2 857-1 #### [facility] CLIA [id number] [address] [place] [address] [place] Differential cell count method Nom (Bld) Auto Normal [facility] Comment on above: Order Comment: Speci men Type: BLOOD SPECIMEN Ordering Facility: [facility] Address: [address] [place] [address] Performed By: #### 2 857-1 #### [facility] CLIA [id number] [address] [place] [address] [place] Eosinophils (Bld) [#/Vol] 0.50 10*3/uL High <0.46 [facility] Comment on above: Order Comment: Speci men Type: BLOOD SPECIMEN Ordering Facility: [facility] Address: [address] [place] [address] Performed By: #### 2 857-1 #### [facility] CLIA [id number] [address] [place] [address] [place] Eosinophils/100 WBC (Bld) 8.5 % Normal [facility] Comment on above: Order Comment: Speci men Type: BLOOD SPECIMEN Ordering Facility: [facility] Address: [address] [place] [address] Performed By: #### 2 857-1 #### [facility] CLIA [id number] [address] [place] [address] [place] Erythrocyte distribution width (RBC) [Ratio] 12.7 % Normal 11.5-15.0 [facility] Comment on above: Order Comment: Speci men Type: BLOOD SPECIMEN Ordering Facility: [facility] Address: [address] [place] [address] Performed By: #### 2 857-1 #### [facility] CLIA [id number] [address] [place] [address] [place] Hematocrit (Bld) [Volume fraction] 35.7 % Low 39.0-51.0 [facility] Comment on above: Order Comment: Speci men Type: BLOOD SPECIMEN Ordering Facility: [facility] Address: [address] [place] [address] Performed By: #### 2 857-1 #### [facility] CLIA [id number] [address] [place] [address] [place] Hemoglobin (Bld) [Mass/Vol] 12.2 g/dL Low 13.0-17.0 [facility] Comment on above: Order Comment: Speci men Type: BLOOD SPECIMEN Ordering Facility: [facility] Address: [address] [place] [address] Performed By: #### 2 857-1 #### [facility] CLIA [id number] [address] [place] [address] [place] Immature granulocytes (Bld) [#/Vol] 0.04 10*3/uL Normal <0.10 [facility] Comment on above: Order Comment: Speci men Type: BLOOD SPECIMEN Ordering Facility: [facility] Address: [address] [place] [address] Performed By: #### 2 857-1 #### [facility] CLIA [id number] [address] [place] [address] [place] Immature granulocytes/100 WBC (Bld) 0.7 % Normal [facility] Comment on above: Order Comment: Speci men Type: BLOOD SPECIMEN Ordering Facility: [facility] Address: [address] [place] [address] Performed By: #### 2 857-1 #### [facility] CLIA [id number] [address] [place] [address] [place] Lymphocytes (Bld) [#/Vol] 1.55 10*3/uL Normal 1.00-4.00 [facility] Comment on above: Order Comment: Speci men Type: BLOOD SPECIMEN Ordering Facility: [facility] Address: [address] [place] [address] Performed By: #### 2 857-1 #### [facility] CLIA [id number] [address] [place] [address] [place] Lymphocytes/100 WBC (Bld) 26.5 % Normal [facility] Comment on above: Order Comment: Speci men Type: BLOOD SPECIMEN Ordering Facility: [facility] Address: [address] [place] [address] Performed By: #### 2 857-1 #### [facility] CLIA [id number] [address] [place] [address] [place] MCH (RBC) [Entitic mass] 32.4 pg Normal 26.0-34.0 [facility] Comment on above: Order Comment: Speci men Type: BLOOD SPECIMEN Ordering Facility: [facility] Address: [address] [place] [address] Performed By: #### 2 857-1 #### [facility] CLIA [id number] [address] [place] [address] [place] MCHC (RBC) [Mass/Vol] 34.2 g/dL Normal 30.5-36.0 [facility] Comment on above: Order Comment: Speci men Type: BLOOD SPECIMEN Ordering Facility: [facility] Address: [address] [place] [address] Performed By: #### 2 857-1 #### [facility] CLIA [id number] [address] [place] [address] [place] MCV (RBC) [Entitic vol] 94.9 fL Normal 80.0-100.0 [facility] Comment on above: Order Comment: Speci men Type: BLOOD SPECIMEN Ordering Facility: [facility] Address: [address] [place] [address] Performed By: #### 2 857-1 #### [facility] CLIA [id number] [address] [place] [address] [place] Monocytes (Bld) [#/Vol] 0.55 10*3/uL Normal <0.87 [facility] Comment on above: Order Comment: Speci men Type: BLOOD SPECIMEN Ordering Facility: [facility] Address: [address] [place] [address] Performed By: #### 2 857-1 #### [facility] CLIA [id number] [address] [place] [address] [place] Monocytes/100 WBC (Bld) 9.4 % Normal [facility] Comment on above: Order Comment: Speci men Type: BLOOD SPECIMEN Ordering Facility: [facility] Address: [address] [place] [address] Performed By: #### 2 857-1 #### [facility] CLIA [id number] [address] [place] [address] [place] Neutrophils (Bld) [#/Vol] 3.19 10*3/uL Normal 1.45-7.50 [facility] Comment on above: Order Comment: Speci men Type: BLOOD SPECIMEN Ordering Facility: [facility] Address: [address] [place] [address] Performed By: #### 2 857-1 #### [facility] CLIA [id number] [address] [place] [address] [place] Neutrophils/100 WBC (Bld) 54.4 % Normal [facility] Comment on above: Order Comment: Speci men Type: BLOOD SPECIMEN Ordering Facility: [facility] Address: [address] [place] [address] Performed By: #### 2 857-1 #### [facility] CLIA [id number] [address] [place] [address] [place] Nucleated RBC (Bld) [#/Vol] 10*3/uL Normal <0.01 [facility] Comment on above: Order Comment: Speci men Type: BLOOD SPECIMEN Ordering Facility: [facility] Address: [address] [place] [address] Performed By: #### 2 857-1 #### [facility] CLIA [id number] [address] [place] [address] [place] Nucleated RBC/100 WBC (Bld) [Ratio] 0.0 /100 WBC Normal [facility] Comment on above: Order Comment: Speci men Type: BLOOD SPECIMEN Ordering Facility: [facility] Address: [address] [place] [address] Performed By: #### 2 857-1 #### [facility] CLIA [id number] [address] [place] [address] [place] Platelet mean volume (Bld) [Entitic vol] 9.4 fL Normal 9.0-12.7 [facility] Comment on above: Order Comment: Speci men Type: BLOOD SPECIMEN Ordering Facility: [facility] Address: [address] [place] [address] Performed By: #### 2 857-1 #### [facility] CLIA [id number] [address] [place] [address] [place] Platelets (Bld) [#/Vol] 177 10*3/uL Normal 150-400 [facility] Comment on above: Order Comment: Speci men Type: BLOOD SPECIMEN Ordering Facility: [facility] Address: [address] [place] [address] Performed By: #### 2 857-1 #### [facility] CLIA [id number] [address] [place] [address] [place] RBC (Bld) [#/Vol] 3.76 10*6/uL Low 4.20-6.00 [facility] Comment on above: Order Comment: Speci men Type: BLOOD SPECIMEN Ordering Facility: [facility] Address: [address] [place] [address] Performed By: #### 2 857-1 #### [facility] CLIA [id number] [address] [place] [address] [place] WBC (Bld) [#/Vol] 5.86 10*3/uL Normal 3.70-11.00 [facility] Comment on above: Order Comment: Speci men Type: BLOOD SPECIMEN Ordering Facility: [facility] Address: [address] [place] [address] Performed By: #### 2 857-1 #### [facility] CLIA [id number] [address] [place] [address] [place] [address] [place] Comprehensive metabolic 2000 panelOrdered By: Liza Lilly on 08-01-2024 Albumin [Mass/Vol] 4.2 g/dL 3.9 - 4.9 g/dL [facility] ALP [Catalytic activity/Vol] 75 U/L 38 - 113 U/L [facility] ALT [Catalytic activity/Vol] 17 U/L 10 - 54 U/L [facility] Anion gap [Moles/Vol] 11 mmol/L 8 - 15 mmol/L [facility] AST [Catalytic activity/Vol] 17 U/L 14 - 40 U/L [facility] Bilirubin [Mass/Vol] 0.6 mg/dL 0.2 - 1.3 mg/dL [facility] Calcium [Mass/Vol] 10.3 mg/dL High 8.5 - 10. 2 mg/dL [facility] Chloride [Moles/Vol] 100 mmol/L 98 - 107 mmol/L [facility] CO2 [Moles/Vol] 26 mmol/L 22 - 30 mmol/L [facility] Creatinine [Mass/Vol] 0.81 mg/dL 0.73 - 1.22 mg/dL [facility] GFR/1.73 sq M.predicted among non-blacks MDRD (S/P/Bld) [Vol rate/Area] 90 mL/min/{1.73_m2} - PINF [facility] Comment on above: Estimated Glomerular Filtration Rate [...] 119 mg/dL High 74 - 99 mg/dL [facility] Comment on above: The [place] [employer] Association (ADA) provides guidance for [...] Standards of Medical Care in Diabetes 2016, [place] [employer]. Diabetes Care. 2016.39(Suppl 1). Interpretation and review of laboratory results Abnormal [facility] Potassium [Moles/Vol] 4.8 mmol/L 3.7 - 5.1 mmol/L [facility] Protein [Mass/Vol] 6.3 g/dL 6.3 - 8.0 g/dL [facility] Sodium [Moles/Vol] 137 mmol/L 136 - 144 mmol/L [facility] Urea nitrogen [Mass/Vol] 14 mg/dL 9 - 24 mg/dL [facility] Comprehensive metabolic 2000 panelon 08-01-2024 Albumin [Mass/Vol] 4.2 g/dL Normal 3.9-4.9 [facility] Comment on above: Order Comment: Nicanor camilo Type: BLOOD SPECIMEN Ordering Facility: [facility] Address: [address] [place] [address] Performed By: #### 2 857-1 #### [facility] CLIA [id number] [address] [place] [address] [place] ALP [Catalytic activity/Vol] 75 U/L Normal 38-113 [facility] Comment on above: Order Comment: Speci men Type: BLOOD SPECIMEN Ordering Facility: [facility] Address: [address] [place] [address] Performed By: #### 2 857-1 #### [facility] CLIA [id number] [address] [place] [address] [place] ALT [Catalytic activity/Vol] 17 U/L Normal 10-54 [facility] Comment on above: Order Comment: Francii men Type: BLOOD SPECIMEN Ordering Facility: [facility] Address: [address] [place] [address] Performed By: #### 2 857-1 #### [facility] CLIA [id number] [address] [place] [address] [place] Anion gap [Moles/Vol] 11 mmol/L Normal 8-15 [facility] Comment on above: Order Comment: Speci men Type: BLOOD SPECIMEN Ordering Facility: [facility] Address: [address] [place] [address] Performed By: #### 2 857-1 #### [facility] CLIA [id number] [address] [place] [address] [place] AST [Catalytic activity/Vol] 17 U/L Normal 14-40 [facility] Comment on above: Order Comment: Speci men Type: BLOOD SPECIMEN Ordering Facility: [facility] Address: [address] [place] [address] Performed By: #### 2 857-1 #### [facility] CLIA [id number] [address] [place] [address] [place] Bilirubin [Mass/Vol] 0.6 mg/dL Normal 0.2-1.3 [facility] Comment on above: Order Comment: Speci men Type: BLOOD SPECIMEN Ordering Facility: [facility] Address: [address] [place] [address] Performed By: #### 2 857-1 #### [facility] CLIA [id number] [address] [place] [address] [place] Calcium [Mass/Vol] 10.3 mg/dL High 8.5-10.2 [facility] Comment on above: Order Comment: Speci men Type: BLOOD SPECIMEN Ordering Facility: [facility] Address: [address] [place] [address] Performed By: #### 2 857-1 #### [facility] CLIA [id number] [address] [place] [address] [place] Chloride [Moles/Vol] 100 mmol/L Normal 98-107 [facility] Comment on above: Order Comment: Speci men Type: BLOOD SPECIMEN Ordering Facility: [facility] Address: [address] [place] [address] Performed By: #### 2 857-1 #### [facility] CLIA [id number] [address] [place] [address] [place] CO2 [Moles/Vol] 26 mmol/L Normal 22-30 [facility] Comment on above: Order Comment: Speci men Type: BLOOD SPECIMEN Ordering Facility: [facility] Address: [address] [place] [address] Performed By: #### 2 857-1 #### [facility] CLIA [id number] [address] [place] [address] [place] Creatinine [Mass/Vol] 0.81 mg/dL Normal 0.73-1.22 [facility] Comment on above: Order Comment: Speci men Type: BLOOD SPECIMEN Ordering Facility: [facility] Address: [address] [place] [address] Performed By: #### 2 857-1 #### [facility] CLIA [id number] [address] [place] [address] [place] [facility] Creatinine and Glomerular filtration rate.predicted panel (S/P/Bld) 90 mL/min/1.73m??? Normal >=60 [facility] Comment on above: Order Comment: Speci men Type: BLOOD SPECIMEN Ordering Facility: [facility] Address: [address] [place] [address] Result Comment: Renae mated Glomerular Filtration Rate [...] GFR. Performed By: #### 2 857-1 #### [facility] CLIA [id number] [address] [place] [address] [place] Glucose [Mass/Vol] 119 mg/dL High 74-99 [facility] Comment on above: Order Comment: Speci men Type: BLOOD SPECIMEN Ordering Facility: [facility] Address: [address] [place] [address] Result Comment: The [place] [employer] Association (ADA) provides guidance for cutoff [...] Standards of Medical Care in Diabetes 2016, [place] [employer]. Diabetes Care. 2016.39(Suppl 1). Performed By: #### 2 857-1 #### [facility] CLIA [id number] [address] [place] [address] [place] Potassium [Moles/Vol] 4.8 mmol/L Normal 3.7-5.1 [facility] Comment on above: Order Comment: Speci men Type: BLOOD SPECIMEN Ordering Facility: [facility] Address: [address] [place] [address] Performed By: #### 2 857-1 #### [facility] CLIA [id number] [address] [place] [address] [place] Protein [Mass/Vol] 6.3 g/dL Normal 6.3-8.0 [facility] Comment on above: Order Comment: Speci men Type: BLOOD SPECIMEN Ordering Facility: [facility] Address: [address] [place] [address] Performed By: #### 2 857-1 #### [facility] CLIA [id number] [address] [place] [address] [place] Sodium [Moles/Vol] 137 mmol/L Normal 136-144 [facility] Comment on above: Order Comment: Speci men Type: BLOOD SPECIMEN Ordering Facility: [facility] Address: [address] [place] [address] Performed By: #### 2 857-1 #### [facility] CLIA [id number] [address] [place] [address] [place] Urea nitrogen [Mass/Vol] 14 mg/dL Normal 9-24 [facility] Comment on above: Order Comment: Speci men Type: BLOOD SPECIMEN Ordering Facility: [facility] Address: [address] [place] [address] Performed By: #### 2 857-1 #### [facility] CLIA [id number] [address] [place] [address] [place] Eosinophils/100 WBC Auto (Bl d)on 08-01-2024 Eosinophils/100 WBC (Bld) Automated eosinophil % [facility] Erythrocyte distribution wid th Auto (RBC) [Ratio]on 08-01-2024 Erythrocyte distribution width (RBC) [Ratio] Erythrocyte distribution width [Ratio] by Automated count 11.5-15.0 [facility] Hematocrit Auto (Bld) [Volum e fraction]on 08-01-2024 Hematocrit (Bld) [Volume fraction] Hematocrit [Volume Fraction] of Blood by Automated count Low 39.0-51.0 [facility] Hemoglobin [Mass/volume] in Bloodon 08-01-2024 Hemoglobin (Bld) [Mass/Vol] Hemoglobin [Mass/volume] in Blood Low 13.0-17.0 [facility] - Chemistry and C hemistry - challengeon 08-01-2024 Albumin [Mass/Vol] 4.2 g/dL 3.9-4.9 [facility] ALP [Catalytic activity/Vol] 75 U/L 38-113 [facility] ALT [Catalytic activity/Vol] 17 U/L 10-54 [facility] AST [Catalytic activity/Vol] 17 U/L 14-40 [facility] Bilirubin [Mass/Vol] 0.6 mg/dL 0.2-1.3 [facility] Calcium [Mass/Vol] 10.3 mg/dL High 8.5-10.2 [facility] Chloride [Moles/Vol] 100 mmol/L 98-107 [facility] CO2 [Moles/Vol] 26 mmol/L 22-30 [facility] Creatinine [Mass/Vol] 0.81 mg/dL 0.73-1.22 [facility] Glucose [Mass/Vol] 119 mg/dL High 74-99 [facility] Comment on above: The [place] Diabete s Association (ADA) provides guidance for [...] Standards of Medical Care in Diabetes 2016, [place] [employer]. Diabetes Care. 2016.39(Suppl 1). Potassium [Moles/Vol] 4.8 mmol/L 3.7-5.1 [facility] Sodium [Moles/Vol] 137 mmol/L 136-144 [facility] Urea nitrogen [Mass/Vol] 14 mg/dL 9-24 [facility] - Hematology and Cell countson 08-01-2024 Eosinophils (Bld) [#/Vol] 0.50 10*3/uL High <0.46 [facility] Immature granulocytes (Bld) [#/Vol] 0.04 10*3/uL <0.10 [facility] Immature granulocytes/100 WBC (Bld) 0.7 % [facility] Leukocytes [#/volume] correc jomar for nucleated erythrocytes in Blood by Automated counon 08-01-2024 WBC corrected for nucl RBC Auto (Bld) [#/Vol] Leukocytes [#/volume] corrected for nucleated erythrocytes in Blood by Automated coun 3.70-11.00 [facility] Lymphocytes Auto (Bld) [#/Vo l]on 08-01-2024 Lymphocytes (Bld) [#/Vol] Lymphocytes [#/volume] in Blood by Automated count 1.00-4.00 [facility] Lymphocytes/100 WBC Auto (Bl d)on 08-01-2024 Lymphocytes/100 WBC (Bld) Lymphocytes/100 leukocytes in Blood by Automated count [facility] MCH Auto (RBC) [Entitic mass ]on 08-01-2024 MCH (RBC) [Entitic mass] MCH [Entitic mass] by Automated count 26.0-34.0 [facility] MCHC Auto (RBC) [Mass/Vol]on 08-01-2024 MCHC (RBC) [Mass/Vol] MCHC [Mass/volume] by Automated count 30.5-36.0 [facility] MCV Auto (RBC) [Entitic vol] on 08-01-2024 MCV (RBC) [Entitic vol] MCV [Entitic volume] by Automated count 80.0-100.0 [facility] Monocytes Auto (Bld) [#/Vol] on 08-01-2024 Monocytes (Bld) [#/Vol] Automated blood monocyte count <0.87 [facility] Monocytes/100 WBC Auto (Bld) on 08-01-2024 Monocytes/100 WBC (Bld) Automated monocyte % [facility] Neutrophils Auto (Bld) [#/Vo l]on 08-01-2024 Neutrophils (Bld) [#/Vol] Neutrophils [#/volume] in Blood by Automated count 1.45-7.50 [facility] Neutrophils/100 WBC Auto (Bl d)on 08-01-2024 Neutrophils/100 WBC (Bld) Automated neutrophil % [facility] No Panel Informationon 08-01 Estimated GFR (CKD-EPI) 90 mL/min/1.73m??? >=60 [facility] Comment on above: Estimated Glomerular Filtration Rate [...] GFR. Prostate Specific Antigen 0.19 ng/mL <2.60 [facility] Comment on above: Total PSA test metho dology used is the Electrochemiluminescence Immunoassay by [employer]. Total PSA values by differing methodologies cannot be interchanged. Nucleated RBC Auto (Bld) [#/ Vol]on 08-01-2024 Nucleated RBC (Bld) [#/Vol] Nucleated erythrocytes [#/volume] in Blood by Automated count <0.01 [facility] Nucleated erythrocytes [Pres ence] in Blood by Automated counton 08-01-2024 Nucleated RBC Auto Ql (Bld) Nucleated erythrocytes [Presence] in Blood by Automated count [facility] PROSTATE-SPECIFIC ANTIGEN DI AGNOSTICon 08-01-2024 Prostate specific Ag [Mass/Vol] 0.19 ng/mL NINF - 2.60 ng/mL [facility] Comment on above: Total PSA test metho dology used is the Electrochemiluminescence Immunoassay by [employer]. Total PSA values by differing methodologies cannot be interchanged. PSA SerPl-mCncon 08-01-2024 Prostate specific Ag [Mass/Vol] 0.19 ng/mL Normal <2.60 [facility] Comment on above: Order Comment: Speci men Type: BLOOD SPECIMEN Ordering Facility: [facility] Address: [address] [place] [address] Result Comment: Tota l PSA test methodology used is the Electrochemiluminescence Immunoassay by [employer]. Total PSA values by differing methodologies cannot be interchanged. Performed By: #### 5 7021-8 #### [facility] CLIA [id number] [address] [place] [id number] Platelet mean volume Auto (B ld) [Entitic vol]on 08-01-2024 Platelet mean volume (Bld) [Entitic vol] Platelet mean volume [Entitic volume] in Blood by Automated count 9.0-12.7 [facility] Platelets Auto (Bld) [#/Vol] on 08-01-2024 Platelets (Bld) [#/Vol] Platelets [#/volume] in Blood by Automated count 150-400 [facility] Prostate specific Ag [Mass/V ol]on 08-01-2024 Interpretation and review of laboratory results Normal [facility] Protein [Mass/volume] in Ser um or Plasmaon 08-01-2024 Protein [Mass/Vol] Protein [Mass/volume ] in Serum or Plasma 6.3-8.0 [facility] RBC Auto (Bld) [#/Vol]on RBC (Bld) [#/Vol] Erythrocytes [#/volu me] in Blood by Automated count Low 4.20-6.00 [facility] Serum or plasma anion gap de terminationon 08-01-2024 Anion gap [Moles/Vol] Serum or plasma anion gap determination 8-15 [facility] CNPNon 07-25-2024 CNPN Telephone (LABSAN) PABLO FELIX ([id number]) 1945 M Date Time Provider Department 07/25/24 [...] Date Reviewed: 02/02/2024 Reviewed by: Lynne Rajan APRN.[employer] - Fully Assessed Reason for Visit: Lab Orders [1688] Primary Visit Diagnosis:Malignant neoplasm of prostate (HCC) [C61] Order(s):COMPLETE BLOOD COUNT AND DIFFERENTIAL [SQCBCDIF] Order #: [id number] FUTURE COMPREHENSIVE METABOLIC PANEL [SQCMP] Order #: [id number] FUTURE PROSTATE-SPECIFIC ANTIGEN DIAGNOSTIC [SQPSA] Order #: [id number] FUTURE Prescriptions as of 10/16/2024 - enzalutamide (XTANDI) 40 mg tablet Take 4 tablets (160 mg) by mouth once daily. - Calcium Citrate-Vitamin D3 200 mg-6.25 mcg (250 unit) tab Take 2 tablets by mouth once daily. - metoprolol succinate ER (TOPROL XL) 25 mg 24 hr tablet Take by mouth. - Pixyxkkxgwwds-Xgveizva-Hdof in (MULTIVITAMIN 50 PLUS) tab Take 1 [...] Encounter Status:Closed by JOSEMANUEL BLANCHARD [facility]/16/[facility] Visit (SP) Office (H EMASA) PABLO FELIX ([id number]) 1945 M Date Time Provider Department 05/09/24 9:15 AM MARCO A ESQUEDA During your visit today, we recorded the following information about you: Temperature Pulse Respiration Blood pressure 97.3 degrees 62/minute 16/minute 141/62 Weight 92.1 kg Marco A Esqueda MD 05/10/2024 7:40 AM Signed PATIENT NAME: Pablo Felix DATE: 05/09/2024 PRIMARY CARE PHYSICIAN: Dr. Jamar Fall OTHER PHYSICIANS: Dr. Anthony Scruggs, Dr. Khan, [facility] Cardiology Portions of this encounter note [...] mg 24 hr tablet Take by mouth. 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 [...] Speci men Type: BLOOD SPECIMEN Ordering Facility: [facility] Address: [address] [place] [address] Performed By: #### 2 857-1 #### [facility] CLIA [id number] [address] [place] [address] [place] Basophils/100 WBC (Bld) 0.5 % Normal [facility] Comment on above: Order Comment: Speci men Type: BLOOD SPECIMEN Ordering Facility: [facility] Address: [address] [place] [address] Performed By: #### 2 857-1 #### [facility] CLIA [id number] [address] [place] [address] [place] Differential cell count method Nom (Bld) Auto Normal [facility] Comment on above: Order Comment: Speci men Type: BLOOD SPECIMEN Ordering Facility: [facility] Address: [address] [place] [address] Performed By: #### 2 857-1 #### [facility] CLIA [id number] [address] [place] [address] [place] Eosinophils (Bld) [#/Vol] 0.48 10*3/uL High <0.46 [facility] Comment on above: Order Comment: Speci men Type: BLOOD SPECIMEN Ordering Facility: [facility] Address: [address] [place] [address] Performed By: #### 2 857-1 #### [facility] CLIA [id number] [address] [place] [address] [place] Eosinophils/100 WBC (Bld) 8.0 % Normal [facility] Comment on above: Order Comment: Speci men Type: BLOOD SPECIMEN Ordering Facility: [facility] Address: [address] [place] [address] Performed By: #### 2 857-1 #### [facility] CLIA [id number] [address] [place] [address] [place] Erythrocyte distribution width (RBC) [Ratio] 12.6 % Normal 11.5-15.0 [facility] Comment on above: Order Comment: Speci men Type: BLOOD SPECIMEN Ordering Facility: [facility] Address: [address] [place] [address] Performed By: #### 2 857-1 #### [facility] CLIA [id number] [address] [place] [address] [place] Hematocrit (Bld) [Volume fraction] 33.2 % Low 39.0-51.0 [facility] Comment on above: Order Comment: Speci men Type: BLOOD SPECIMEN Ordering Facility: [facility] Address: [address] [place] [address] Performed By: #### 2 857-1 #### [facility] CLIA [id number] [address] [place] [address] [place] Hemoglobin (Bld) [Mass/Vol] 11.5 g/dL Low 13.0-17.0 [facility] Comment on above: Order Comment: Speci men Type: BLOOD SPECIMEN Ordering Facility: [facility] Address: [address] [place] [address] Performed By: #### 2 857-1 #### [facility] CLIA [id number] [address] [place] [address] [place] Immature granulocytes (Bld) [#/Vol] 0.04 10*3/uL Normal <0.10 [facility] Comment on above: Order Comment: Speci men Type: BLOOD SPECIMEN Ordering Facility: [facility] Address: [address] [place] [address] Performed By: #### 2 857-1 #### [facility] CLIA [id number] [address] [place] [address] [place] Immature granulocytes/100 WBC (Bld) 0.7 % Normal [facility] Comment on above: Order Comment: Speci men Type: BLOOD SPECIMEN Ordering Facility: [facility] Address: [address] [place] [address] Performed By: #### 2 857-1 #### [facility] CLIA [id number] [address] [place] [address] [place] Lymphocytes (Bld) [#/Vol] 1.76 10*3/uL Normal 1.00-4.00 [facility] Comment on above: Order Comment: Speci men Type: BLOOD SPECIMEN Ordering Facility: [facility] Address: [address] [place] [address] Performed By: #### 2 857-1 #### [facility] CLIA [id number] [address] [place] [address] [place] Lymphocytes/100 WBC (Bld) 29.4 % Normal [facility] Comment on above: Order Comment: Speci men Type: BLOOD SPECIMEN Ordering Facility: [facility] Address: [address] [place] [address] Performed By: #### 2 857-1 #### [facility] CLIA [id number] [address] [place] [address] [place] MCH (RBC) [Entitic mass] 33.0 pg Normal 26.0-34.0 [facility] Comment on above: Order Comment: Speci men Type: BLOOD SPECIMEN Ordering Facility: [facility] Address: [address] [place] [address] Performed By: #### 2 857-1 #### [facility] CLIA [id number] [address] [place] [address] [place] MCHC (RBC) [Mass/Vol] 34.6 g/dL Normal 30.5-36.0 [facility] Comment on above: Order Comment: Speci men Type: BLOOD SPECIMEN Ordering Facility: [facility] Address: [address] [place] [address] Performed By: #### 2 857-1 #### [facility] CLIA [id number] [address] [place] [address] [place] MCV (RBC) [Entitic vol] 95.1 fL Normal 80.0-100.0 [facility] Comment on above: Order Comment: Speci men Type: BLOOD SPECIMEN Ordering Facility: [facility] Address: [address] [place] [address] Performed By: #### 2 857-1 #### [facility] CLIA [id number] [address] [place] [address] [place] Monocytes (Bld) [#/Vol] 0.48 10*3/uL Normal <0.87 [facility] Comment on above: Order Comment: Speci men Type: BLOOD SPECIMEN Ordering Facility: [facility] Address: [address] [place] [address] Performed By: #### 2 857-1 #### [facility] CLIA [id number] [address] [place] [address] [place] Monocytes/100 WBC (Bld) 8.0 % Normal [facility] Comment on above: Order Comment: Speci men Type: BLOOD SPECIMEN Ordering Facility: [facility] Address: [address] [place] [address] Performed By: #### 2 857-1 #### [facility] CLIA [id number] [address] [place] [address] [place] Neutrophils (Bld) [#/Vol] 3.19 10*3/uL Normal 1.45-7.50 [facility] Comment on above: Order Comment: Speci men Type: BLOOD SPECIMEN Ordering Facility: [facility] Address: [address] [place] [address] Performed By: #### 2 857-1 #### [facility] CLIA [id number] [address] [place] [address] [place] Neutrophils/100 WBC (Bld) 53.4 % Normal [facility] Comment on above: Order Comment: Speci men Type: BLOOD SPECIMEN Ordering Facility: [facility] Address: [address] [place] [address] Performed By: #### 2 857-1 #### [facility] CLIA [id number] [address] [place] [address] [place] Nucleated RBC (Bld) [#/Vol] 10*3/uL Normal <0.01 [facility] Comment on above: Order Comment: Speci men Type: BLOOD SPECIMEN Ordering Facility: [facility] Address: [address] [place] [address] Performed By: #### 2 857-1 #### [facility] CLIA [id number] [address] [place] [address] [place] Nucleated RBC/100 WBC (Bld) [Ratio] 0.0 /100 WBC Normal [facility] Comment on above: Order Comment: Speci men Type: BLOOD SPECIMEN Ordering Facility: [facility] Address: [address] [place] [address] Performed By: #### 2 857-1 #### [facility] CLIA [id number] [address] [place] [address] [place] Platelet mean volume (Bld) [Entitic vol] 9.3 fL Normal 9.0-12.7 [facility] Comment on above: Order Comment: Speci men Type: BLOOD SPECIMEN Ordering Facility: [facility] Address: [address] [place] [address] Performed By: #### 2 857-1 #### [facility] CLIA [id number] [address] [place] [address] [place] Platelets (Bld) [#/Vol] 192 10*3/uL Normal 150-400 [facility] Comment on above: Order Comment: Speci men Type: BLOOD SPECIMEN Ordering Facility: [facility] Address: [address] [place] [address] Performed By: #### 2 857-1 #### [facility] CLIA [id number] [address] [place] [address] [place] RBC (Bld) [#/Vol] 3.49 10*6/uL Low 4.20-6.00 [facility] Comment on above: Order Comment: Speci men Type: BLOOD SPECIMEN Ordering Facility: [facility] Address: [address] [place] [address] Performed By: #### 2 857-1 #### [facility] CLIA [id number] [address] [place] [address] [place] WBC (Bld) [#/Vol] 5.98 10*3/uL Normal 3.70-11.00 [facility] Comment on above: Order Comment: Speci men Type: BLOOD SPECIMEN Ordering Facility: [facility] Address: [address] [place] [address] Performed By: #### 2 857-1 #### [facility] CLIA [id number] [address] [place] [address] [place] Comprehensive metabolic 2000 panelon 05-03-2024 Albumin [Mass/Vol] 3.9 g/dL Normal 3.9-4.9 [facility] Comment on above: Order Comment: Speci men Type: BLOOD SPECIMEN Ordering Facility: [facility] Address: [address] [place] [address] Performed By: #### 2 857-1 #### [facility] CLIA [id number] [address] [place] [address] [place] ALP [Catalytic activity/Vol] 71 U/L Normal 38-113 [facility] Comment on above: Order Comment: Speci men Type: BLOOD SPECIMEN Ordering Facility: [facility] Address: [address] [place], [place] [id number] Performed By: #### 2 857-1 #### [facility] CLIA [id number] [address] [place] [address] [place] ALT [Catalytic activity/Vol] 16 U/L Normal 10-54 [facility] Comment on above: Order Comment: Speci men Type: BLOOD SPECIMEN Ordering Facility: [facility] Address: [address] [place] [address] Performed By: #### 2 857-1 #### [facility] CLIA [id number] [address] [place] [address] [place] Anion gap [Moles/Vol] 9 mmol/L Normal 8-15 [facility] Comment on above: Order Comment: Speci men Type: BLOOD SPECIMEN Ordering Facility: [facility] Address: [address] [place] [address] Performed By: #### 2 857-1 #### [facility] CLIA [id number] [address] [place] [address] [place] AST [Catalytic activity/Vol] 17 U/L Normal 14-40 [facility] Comment on above: Order Comment: Speci men Type: BLOOD SPECIMEN Ordering Facility: [facility] Address: [address] [place] [address] Performed By: #### 2 857-1 #### [facility] CLIA [id number] [address] [place] [address] [place] Bilirubin [Mass/Vol] 0.5 mg/dL Normal 0.2-1.3 [facility] Comment on above: Order Comment: Speci men Type: BLOOD SPECIMEN Ordering Facility: [facility] Address: [address] [place] [address] Performed By: #### 2 857-1 #### [facility] CLIA [id number] [address] [place] [address] [place] Calcium [Mass/Vol] 9.5 mg/dL Normal 8.5-10.2 [facility] Comment on above: Order Comment: Speci men Type: BLOOD SPECIMEN Ordering Facility: [facility] Address: [address] [place] [address] Performed By: #### 2 857-1 #### [facility] CLIA [id number] [address] [place] [address] [place] Chloride [Moles/Vol] 104 mmol/L Normal 98-107 [facility] Comment on above: Order Comment: Speci men Type: BLOOD SPECIMEN Ordering Facility: [facility] Address: [address] [place] [address] Performed By: #### 2 857-1 #### [facility] CLIA [id number] [address] [place] [address] [place] CO2 [Moles/Vol] 26 mmol/L Normal 22-30 [facility] Comment on above: Order Comment: Speci men Type: BLOOD SPECIMEN Ordering Facility: [facility] Address: [address] [place] [address] Performed By: #### 2 857-1 #### [facility] CLIA [id number] [address] [place] [address] [place] Creatinine [Mass/Vol] 0.88 mg/dL Normal 0.73-1.22 [facility] Comment on above: Order Comment: Speci men Type: BLOOD SPECIMEN Ordering Facility: [facility] Address: [address] [place] [address] Performed By: #### 2 857-1 #### [facility] CLIA [id number] [address] [place] [address] [place] Creatinine and Glomerular filtration rate.predicted panel (S/P/Bld) 88 mL/min/1.73m??? Normal >=60 [facility] Comment on above: Order Comment: Speci men Type: BLOOD SPECIMEN Ordering Facility: [facility] Address: [address] [place] [address] Result Comment: Renae mated Glomerular Filtration Rate [...] GFR. Performed By: #### 2 857-1 #### [facility] CLIA [id number] [address] [place] [address] [place] Glucose [Mass/Vol] 106 mg/dL High 74-99 [facility] Comment on above: Order Comment: Nicanor camilo Type: BLOOD SPECIMEN Ordering Facility: [facility] Address: [address] [place] [address] Result Comment: The [place] Diabetes Association (ADA) provides guidance for cutoff [...] Standards of Medical Care in Diabetes 2016, [place] [employer]. Diabetes Care. 2016.39(Suppl 1). Performed By: #### 2 857-1 #### [facility] CLIA [id number] [address] [place] [address] [place] Potassium [Moles/Vol] 5.6 mmol/L High 3.7-5.1 [facility] Comment on above: Order Comment: Nicanor camilo Type: BLOOD SPECIMEN Ordering Facility: [facility] Address: [address] [place] [address] Performed By: #### 2 857-1 #### [facility] CLIA [id number] [address] [place] [address] [place] Protein [Mass/Vol] 6.3 g/dL Normal 6.3-8.0 [facility] Comment on above: Order Comment: Speci men Type: BLOOD SPECIMEN Ordering Facility: [facility] Address: [address] [place] [address] Performed By: #### 2 857-1 #### [facility] CLIA [id number] [address] [place] [address] [place] Sodium [Moles/Vol] 139 mmol/L Normal 136-144 [facility] Comment on above: Order Comment: Speci men Type: BLOOD SPECIMEN Ordering Facility: [facility] Address: [address] [place] [address] Performed By: #### 2 857-1 #### [facility] CLIA [id number] [address] [place] [address] [place] Urea nitrogen [Mass/Vol] 19 mg/dL Normal 9-24 [facility] Comment on above: Order Comment: Speci men Type: BLOOD SPECIMEN Ordering Facility: [facility] Address: [address] [place] [address] Performed By: #### 2 857-1 #### [facility] CLIA [id number] [address] [place] [address] [place] [facility] Prostate specific Ag [Mass/Vol] 0.18 ng/mL Normal <2.60 [facility] Comment on above: Order Comment: Speci men Type: BLOOD SPECIMEN Ordering Facility: [facility] Address: [address] [place] [address] Result Comment: Tota l PSA test methodology used is the Electrochemiluminescence Immunoassay by [employer]. Total PSA values by differing methodologies cannot be interchanged. Performed By: #### 2 857-1 #### [facility] CLIA [id number] [address] [place] [address] [place] Ambulatory Visit Summaryon [...] mg Tab) ipratropium nasal (ipratropium Nasal 0.06% [place]) metformin (metformin 1000 mg oral tablet) metoprolol [...] Anthony SCRUGGS MD Where: [facility] [address] [place] [address]- You Need to Schedule the Following Appointments Follow Up with Anthony SCRUGGS MD, URL When: Where: [address] [place] [phone]- Medications What How Much When Instructions Unchanged [...] concerns Unchanged ipratropium nasal (ipratropium Nasal 0.06% [place]) Contact prescribing physician if questions or concerns [...] Trouble st (more content not included)... 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 [place] 9 (5+4), pT2b, N0, Mo. Last Lupron administered 04/2022. Taking Xtandi 160mg qd and Xgeva q3mos. Last seen by [facility] oncology 02/02/24. Plan at that time was [...] Contact Information KAEL JAMES, Anthony Lee, [place] [address] [place] [phone]- Additional Instructions: 6 mos w/ PSA and [...] hydrochlorothiazide-lisinop ril (more content not included)... Normal [facility] Comment on above: Result Comment: Elec tronically Signed By: Anthony SCRUGGS MD\.br\Date and Time Signed: 04/19/24 08:47 EDT\.br\Electronically Co-Signed By: Olamdie Ureña.br\Date and Time Co-Signed: 04/19/24 08:45 EDT Office Visiton 03-29-2024 Follow-up visit [id number] Pablo Felix 1945 M Date Provider Department Center 03/29/2024 [facility] Family History Problem Relation Age of Onset Coronary artery disease Father Family Status - Relation Status Age at Father Level of Service:70246 [place] OFFICE/OUTPATIENT ESTABLISHED MOD MDM 30 MIN Normal [facility] Basophils Auto (Bld) [#/Vol] on 01-25-2024 Basophils (Bld) [#/Vol] 0.04 10*3/uL <0.11 [facility] Basophils/100 WBC Auto (Bld) on 01-25-2024 Basophils/100 WBC (Bld) 0.6 % [facility] Blood manual differential co mment interpretation narrativeon 01-25-2024 Manual differential comment [place] (Bld) [Interp] Auto [facility] Eosinophils/100 WBC Auto (Bl d)on 01-25-2024 Eosinophils/100 WBC (Bld) 5.9 % [facility] Erythrocyte distribution wid th Auto (RBC) [Ratio]on 01-25-2024 Erythrocyte distribution width (RBC) [Ratio] 12.7 % 11.5-15.0 [facility] Hematocrit Auto (Bld) [Volum e fraction]on 01-25-2024 Hematocrit (Bld) [Volume fraction] 34.6 % Low 39.0-51.0 [facility] Hemoglobin [Mass/volume] in Bloodon 01-25-2024 Hemoglobin (Bld) [Mass/Vol] 11.8 g/dL Low 13.0-17.0 [facility] Laboratory - Chemistry and C hemistry - challengeon 01-25-2024 Albumin [Mass/Vol] 4.0 g/dL 3.9-4.9 [facility] ALP [Catalytic activity/Vol] 74 U/L 38-113 [facility] ALT [Catalytic activity/Vol] 18 U/L 10-54 [facility] AST [Catalytic activity/Vol] 19 U/L 14-40 [facility] Bilirubin [Mass/Vol] 0.7 mg/dL 0.2-1.3 [facility] Calcium [Mass/Vol] 9.9 mg/dL 8.5-10.2 [facility] Chloride [Moles/Vol] 103 mmol/L 98-107 [facility] CO2 [Moles/Vol] 25 mmol/L 22-30 [facility] Creatinine [Mass/Vol] 0.79 mg/dL 0.73-1.22 [facility] Glucose [Mass/Vol] 112 mg/dL High 74-99 [facility] Comment on above: The [place] Diabete s Association (ADA) provides guidance for [...] Standards of Medical Care in Diabetes 2016, [place] [employer]. Diabetes Care. 2016.39(Suppl 1). Potassium [Moles/Vol] 5.2 mmol/L High 3.7-5.1 [facility] Sodium [Moles/Vol] 137 mmol/L 136-144 [facility] Urea nitrogen [Mass/Vol] 15 mg/dL 04-09 [facility] - Hematology and Cell countson 01-25-2024 Eosinophils (Bld) [#/Vol] 0.40 10*3/uL <0.46 [facility] Immature granulocytes (Bld) [#/Vol] 0.07 10*3/uL <0.10 [facility] Immature granulocytes/100 WBC (Bld) 1.0 % [facility] Leukocytes [#/volume] correc jomar for nucleated erythrocytes in Blood by Automated counon 01-25-2024 WBC corrected for nucl RBC Auto (Bld) [#/Vol] 6.80 k/uL 3.70-11.00 [facility] Lymphocytes Auto (Bld) [#/Vo l]on 01-25-2024 Lymphocytes (Bld) [#/Vol] 2.16 10*3/uL 1.00-4.00 [facility] Lymphocytes/100 WBC Auto (Bl d)on 01-25-2024 Lymphocytes/100 WBC (Bld) 31.8 % [facility] MCH Auto (RBC) [Entitic mass ]on 01-25-2024 MCH (RBC) [Entitic mass] 32.2 pg 26.0-34.0 [facility] MCHC Auto (RBC) [Mass/Vol]on 01-25-2024 MCHC (RBC) [Mass/Vol] 34.1 g/dL 30.5-36.0 [facility] MCV Auto (RBC) [Entitic vol] on 01-25-2024 MCV (RBC) [Entitic vol] 94.3 fL 80.0-100.0 [facility] Monocytes Auto (Bld) [#/Vol] on 01-25-2024 Monocytes (Bld) [#/Vol] 0.60 10*3/uL <0.87 [facility] Monocytes/100 WBC Auto (Bld) on 01-25-2024 Monocytes/100 WBC (Bld) 8.8 % [facility] Neutrophils Auto (Bld) [#/Vo l]on 01-25-2024 Neutrophils (Bld) [#/Vol] 3.53 10*3/uL 1.45-7.50 [facility] Neutrophils/100 WBC Auto (Bl d)on 01-25-2024 Neutrophils/100 WBC (Bld) 51.9 % [facility] No Panel Informationon 01-24 Estimated GFR (CKD-EPI) 91 mL/min/1.73m??? >=60 [facility] Comment on above: Estimated Glomerular Filtration Rate [...] GFR. Prostate Specific Antigen 0.15 ng/mL <2.60 [facility] Comment on above: Total PSA test metho dology used is the Electrochemiluminescence Immunoassay by [employer]. Total PSA values by differing methodologies cannot be interchanged. Nucleated RBC Auto (Bld) [#/ Vol]on 01-25-2024 Nucleated RBC (Bld) [#/Vol] 10*3/uL <0.01 [facility] Nucleated erythrocytes [Pres ence] in Blood by Automated counton 01-25-2024 Nucleated RBC Auto Ql (Bld) 0.0 /100{WBC} [facility] Platelet mean volume Auto (B ld) [Entitic vol]on 01-25-2024 Platelet mean volume (Bld) [Entitic vol] 10.3 fL 9.0-12.7 [facility] Platelets Auto (Bld) [#/Vol] on 01-25-2024 Platelets (Bld) [#/Vol] 184 10*3/uL 150-400 [facility] Protein [Mass/volume] in Ser um or Plasmaon 01-25-2024 Protein [Mass/Vol] 6.6 g/dL 6.3-8.0 [facility] RBC Auto (Bld) [#/Vol]on RBC (Bld) [#/Vol] 3.67 10*6/uL Low 4.20-6.00 [facility] Serum or plasma anion gap de terminationon 01-25-2024 Anion gap [Moles/Vol] 9 mmol/L 02-28 [facility] Consultation Noteon 11-07-19 Consultation Note [id number] Normal [facility] Basophils Auto (Bld) [#/Vol] on 10-30-2023 Basophils (Bld) [#/Vol] 0.04 10*3/uL <0.11 [facility] Basophils/100 WBC Auto (Bld) on 10-30-2023 Basophils/100 WBC (Bld) 0.5 % [facility] Blood manual differential co mment interpretation narrativeon 10-30-2023 Manual differential comment [place] (Bld) [Interp] Auto [facility] Eosinophils/100 WBC Auto (Bl d)on 10-30-2023 Eosinophils/100 WBC (Bld) 4.3 % [facility] Erythrocyte distribution wid th Auto (RBC) [Ratio]on 10-30-2023 Erythrocyte distribution width (RBC) [Ratio] 12.8 % 11.-15.0 [facility] Hematocrit Auto (Bld) [Volum e fraction]on 10-30-2023 Hematocrit (Bld) [Volume fraction] 35.8 % 39.0-51.0 [facility] Hemoglobin [Mass/volume] in Bloodon 10-30-2023 Hemoglobin (Bld) [Mass/Vol] 12.2 g/dL 13.0-17.0 [facility] Laboratory - Chemistry and C hemistry - challengeon 10-30-2023 Albumin [Mass/Vol] 4.1 g/dL 3.9-4.9 [facility] ALP [Catalytic activity/Vol] 75 U/L 38-113 [facility] ALT [Catalytic activity/Vol] 16 U/L 10-54 [facility] AST [Catalytic activity/Vol] 16 U/L 14-40 [facility] Bilirubin [Mass/Vol] 0.7 mg/dL 0.2-1.3 [facility] Calcium [Mass/Vol] 9.8 mg/dL 8.5-10.2 [facility] Chloride [Moles/Vol] 103 mmol/L 97-105 [facility] CO2 [Moles/Vol] 24 mmol/L 22-30 [facility] Creatinine [Mass/Vol] 0.88 mg/dL 0.73-1.22 [facility] Glucose [Mass/Vol] 128 mg/dL 74-99 [facility] Comment on above: The [place] Diabete s Association (ADA) provides guidance for [...] Standards of Medical Care in Diabetes 2016, [place] [employer] Association. Diabetes Care. 2016.39(Suppl 1). Potassium [Moles/Vol] 4.8 mmol/L 3.7-5.1 [facility] Sodium [Moles/Vol] 140 mmol/L 136-144 [facility] Urea nitrogen [Mass/Vol] 18 mg/dL 9-24 [facility] Laboratory - Hematology and Cell countson 10-30-2023 Eosinophils (Bld) [#/Vol] 0.35 10*3/uL <0.46 [facility] Immature granulocytes (Bld) [#/Vol] 0.04 10*3/uL <0.10 [facility] Immature granulocytes/100 WBC (Bld) 0.5 % [facility] Leukocytes [#/volume] correc jomar for nucleated erythrocytes in Blood by Automated counon 10-30-2023 WBC corrected for nucl RBC Auto (Bld) [#/Vol] 8.19 k/uL 3.70-11.00 [facility] Lymphocytes Auto (Bld) [#/Vo l]on 10-30-2023 Lymphocytes (Bld) [#/Vol] 1.36 10*3/uL 1.00-4.00 [facility] Lymphocytes/100 WBC Auto (Bl d)on 10-30-2023 Lymphocytes/100 WBC (Bld) 16.6 % [facility] MCH Auto (RBC) [Entitic mass ]on 10-30-2023 MCH (RBC) [Entitic mass] 31.3 pg 26.0-34.0 [facility] MCHC Auto (RBC) [Mass/Vol]on 10-30-2023 MCHC (RBC) [Mass/Vol] 34.1 g/dL 30.5-36.0 [facility] MCV Auto (RBC) [Entitic vol] on 10-30-2023 MCV (RBC) [Entitic vol] 91.8 fL 80.0-100.0 [facility] Monocytes Auto (Bld) [#/Vol] on 10-30-2023 Monocytes (Bld) [#/Vol] 0.62 10*3/uL <0.87 [facility] Monocytes/100 WBC Auto (Bld) on 10-30-2023 Monocytes/100 WBC (Bld) 7.6 % [facility] Neutrophils Auto (Bld) [#/Vo l]on 10-30-2023 Neutrophils (Bld) [#/Vol] 5.78 10*3/uL 1.45-7.50 [facility] Neutrophils/100 WBC Auto (Bl d)on 10-30-2023 Neutrophils/100 WBC (Bld) 70.5 % [facility] No Panel Informationon 10-29 Estimated GFR (CKD-EPI) 89 mL/min/1.73m??? >=60 [facility] Comment on above: Estimated Glomerular Filtration Rate [...] GFR. Prostate Specific Antigen 0.16 ng/mL <2.60 [facility] Comment on above: Total PSA test metho dology used is the Electrochemiluminescence Immunoassay by [employer]. Total PSA values by differing methodologies cannot be interchanged. Testosterone Level 78 ng/dL [phone] [facility] Comment on above: A testosterone level in the 193-320 ng/dL range with associated clinical symptoms is considered low and may indicate hypogonadism (from [facility] 2010 [id number]). Results >320 ng/dL are considered normal.Result rechecked. Nucleated RBC Auto (Bld) [#/ Vol]on 10-30-2023 Nucleated RBC (Bld) [#/Vol] 10*3/uL <0.01 [facility] Nucleated erythrocytes [Pres ence] in Blood by Automated counton 10-30-2023 Nucleated RBC Auto Ql (Bld) 0.0 /100{WBC} [facility] Platelet mean volume Auto (B ld) [Entitic vol]on 10-30-2023 Platelet mean volume (Bld) [Entitic vol] 9.5 fL 9.0-12.7 [facility] Platelets Auto (Bld) [#/Vol] on 10-30-2023 Platelets (Bld) [#/Vol] 192 10*3/uL 150-400 [facility] Protein [Mass/volume] in Ser um or Plasmaon 10-30-2023 Protein [Mass/Vol] 6.5 g/dL 6.3-8.0 [facility] RBC Auto (Bld) [#/Vol]on RBC (Bld) [#/Vol] 3.90 10*6/uL 4.20-6.00 [facility] Serum or plasma anion gap de terminationon 10-30-2023 Anion gap [Moles/Vol] 13 mmol/L 04-03 [facility] Patient Educationon 10-20-19 Patient Education Oncology Prostate [...] under a microscope. This is called the [place] score and the total score can range from 6?10, indicating how likely it is that the cancer will spread (metastasize) to other parts of the body. The higher the score, the greater the likelihood that the cancer will spread. ? [place] 6 or lower: This indicates that the cancer cells look similar to normal prostate cells (well differentiated). ? [place] 7: This indicates that the cancer cells look somewhat similar to normal prostate cells (moderately differentiated). ? [place] 8, 9, or 10: This indicates that [...] external be (more content not included)... 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 [place] 9 (5+4), pT2b, N0, Mo. Last Lupron [...] Information KAEL JAMES, Anthony Lee, URL [address] [place] [address]- Additional Instructions: 6 mos w/ PSA and [...] 1 tab(s), Oral, Daily ipratropium Nasal 0.06% [place] metformin 1000 mg oral tablet, Oral, BID metoprolol 25 mg ER Tab, 25 mg= 1 tab(s), Oral, BID Vitamin D3 Xtandi 80 mg oral tablet, Oral, Daily Allergies penicillin G benzathine (Unknown) Social History Alcohol Current, 1-2 times per year, 02/04/2019 Tobacco Never (less than 100 in lifetime) Tobacco Use:. Never Smokeless Tobacco Use:. (more content not included)... Normal [facility] Comment on above: Result Comment: Elec tronically Signed By: Anthony SCRUGGS MD\.br\Date and Time Signed: 10/20/23 09:57 EDT\.br\Electronically Co-Signed By: Olamide Ureña.br\Date and Time Co-Signed: 10/20/23 09:55 EDT No Panel Informationon 10-08 Prostate Specific Antigen Total <0.13 ng/mL <=4.00 [facility] No Panel Informationon 08-28 [facility] Type of biopsy: schmidt ential Informed [...] yes Amount of lidocaine used: 0.5 cc [facility] Healthcare Office Visiton 06-22-2023 Follow-up visit [id number] Pablo Felix 1945 [facility] Provider Department Center 06/22/2023 Erika-BRIDGER MULLIGAN [facility] Family History Problem Relation Age of Onset Coronary artery disease Father Family Status - Relation Status Age at Father Level of Service:67528 [place] OFFICE/OUTPATIENT ESTABLISHED MOD MDM 30-39 MIN Normal [facility] GLYCOHEMOGLOBIN A1Con 2022 ADA RECOMMENDATION SEE BELOW Normal [facility] Comment on above: Result Comment: ADA RECOMMENDED LIMIT 4.0 - 6.0 ADA THERAPEUTIC TARGET < 7.0 ACTION SUGGESTED > 7.0 Performed By: #### D ATA1C #### [facility] [place] [facility] [address] [address] [address] Bharati Aguiar Glucose [Mass/Vol] 131 mg/dL Normal [facility] Comment on above: Performed By: #### D ATA1C #### [facility] [place] [facility] [address] [place], [place] [address] Dr. Bharati Augiar HbA1c (Bld) [Mass fraction] 6.2 % Normal 4.5-6.2 [place] Comment on above: Performed By: #### D ATA1C #### [facility] [place] [facility] [address] [address] [address] Bharati Aguiar XR CSPINE OBL FLEX_EXTon [...] appreciable acute abnormality. Electronically authenticated by: CYNTHIA TRORES Date: 2022-07-21 15:52 Normal [facility] [place] GLYCOHEMOGLOBIN A1Con 2021 ADA RECOMMENDATION SEE BELOW Normal [facility] Comment on above: Result Comment: ADA RECOMMENDED LIMIT 4.0 - 6.0 ADA THERAPEUTIC TARGET < 7.0 ACTION SUGGESTED > 7.0 Performed By: #### D ATA1C #### [facility] [place] [facility] [address] [address] [address] Bharati Aguiar Glucose [Mass/Vol] 134 mg/dL Normal [facility] Comment on above: Performed By: #### D ATA1C #### [facility] [place] [facility] [address] [address] [address] Bharati Aguiar HbA1c (Bld) [Mass fraction] 6.3 % Critically high 4.5-6.2 [place] Comment on above: Performed By: #### D ATA1C #### [facility] [place] [facility] [address] [address] [address] Bharati Aguiar ECHOCARDIO M/2D COMPLETEon 1 ECHOCARDIO M/2D COMPLETE Patient: PABLO FELIX Exam Date: 04/27/2022 : 1945 Gender:M Ordering : LORA ENGLISH Admission #: [id number] Family : DR JAMAR FALL D.O. Order #: [id number] CLICK HERE TO VIEW EXAM ECHOCARDIOGRAM REPORT [...] Carreon M.D. on 04/28/2022 at 19:09 Normal [place] GLYCOHEMOGLOBIN A1Con 2021 ADA RECOMMENDATION SEE BELOW Normal [facility] Comment on above: Result Comment: ADA RECOMMENDED LIMIT 4.0 - 6.0 ADA THERAPEUTIC TARGET < 7.0 ACTION SUGGESTED > 7.0 Performed By: #### D ATA1C ####[facility] [place] [id number] [address]DrJunior Aguiar Glucose [Mass/Vol] 137 mg/dL Normal [facility] Comment on above: Performed By: #### D ATA1C ####[facility] [place] [id number] [address]DrJunior Aguiar HbA1c (Bld) [Mass fraction] 6.4 % Critically high 4.5-6.2 [place] Comment on above: Performed By: #### D ATA1C ####[facility] [place] [id number] [place], [place] [address]Mf. Yilan Aguiar NM BONE SC WH BODYon 022 [...] it was not obviously included in the tzslm-mg-xler of the recent CT. There are foci [...] FEDE DE JESUS Date: 2021-11-06 12:[address] [place] [address] CHEST W CONon 11-05-2021 CT CHEST [...] Normal The [facility] [place] PROF 14(COMP METB)on 022 Albumin [Mass/Vol] 3.6 g/dL Normal 3.4-5.0 [facility] Comment on above: Performed By: #### C MP #### [facility] [place] [facility] [address] [address] [address] Bharati Aguiar Albumin/Globulin [Mass ratio] 1.1 {ratio} Normal [place] Comment on above: Performed By: #### C MP #### [facility] [place] [facility] [address], [place] [address] Dr. Bharati Aguiar ALP [Catalytic activity/Vol] 89 U/L Normal 46-116 [place] Comment on above: Performed By: #### C MP #### [facility] [place] [facility] [address], [place] [address] Dr. Bharati Aguiar ALT [Catalytic activity/Vol] 33 U/L Normal 16-63 [place] Comment on above: Performed By: #### C MP #### [facility] [place] [facility] [address] [address] [address] Bharati Aguiar Anion gap [Moles/Vol] 12.1 mmol/L Normal [place] Comment on above: Performed By: #### C MP #### [facility] [place] [facility] [address] [address] [address] Bharati Aguiar AST [Catalytic activity/Vol] 19 U/L Normal 15-37 [place] Comment on above: Performed By: #### C MP #### [facility] [place] [facility] [address] [address] [address] Bharati Aguiar Bilirubin [Mass/Vol] 0.9 mg/dL Normal 0.2-1.3 [place] Comment on above: Performed By: #### C MP #### [facility] [place] [facility] [address] [address] [address] Bharati Aguiar Calcium [Mass/Vol] 8.8 mg/dL Normal 8.5-10.1 [facility] Comment on above: Performed By: #### C MP #### [facility] [place] [facility] [address] [address] [address] Bharati Aguiar Chloride [Moles/Vol] 103 mmol/L Normal 98-107 [place] Comment on above: Performed By: #### C MP #### [facility] [place] [facility] [address] [address] [address] Bharati Aguiar CO2 [Moles/Vol] 28.6 mmol/L Normal 22.0-30.0 [facility] Comment on above: Performed By: #### C MP #### [facility] [place] [facility] [address] [address] [address] Bharati Aguiar Creatinine [Mass/Vol] 0.85 mg/dL Normal 0.66-1.25 [place] Comment on above: Performed By: #### C MP #### [facility] [place] [facility] [address] [address] [address] Bharati Aguiar EGFR-AF [place] >60 Normal >=60 [facility] Comment on above: Performed By: #### C MP #### [facility] [place] [facility] [address] [address] [address] Bharati Aguiar EGFR-NON AF [place] >60 Normal >=60 [place] Comment on above: Performed By: #### C MP #### [facility] [place] [facility] [address] [address] [address] Bharati Aguiar Globulin (S) [Mass/Vol] 3.4 g/dL Normal [place] Comment on above: Performed By: #### C MP #### [facility] [place] [facility] [address] [address] [address] Bharati Aguiar Glucose [Mass/Vol] 127 mg/dL Critically high 74-106 [facility] Comment on above: Performed By: #### C MP #### [facility] [place] [facility] [address] [place] [address] Dr. Bharati Aguiar Potassium [Moles/Vol] 4.7 mmol/L Normal 3.4-5.0 [place] Comment on above: Performed By: #### C MP #### [facility] [place] [facility] [address] [place] [address] Dr. Bharati Aguiar Protein [Mass/Vol] 7.0 g/dL Normal 6.1-8.2 [facility] Comment on above: Performed By: #### C MP #### [facility] [place] [facility] [address] [place] [address] Dr. Bharati Aguiar Sodium [Moles/Vol] 139 mmol/L Normal 137-145 [facility] Comment on above: Performed By: #### C MP #### [facility] [place] [facility] [address] [place] [address] Dr. Bharati Aguiar Urea nitrogen [Mass/Vol] 18.0 mg/dL Normal 7.0-18.0 [place] Comment on above: Performed By: #### C MP #### [facility] [place] [facility] [address] [place] [address] Dr. Bharati Aguiar Urea nitrogen/Creatinin e [Mass ratio] 21.2 mg/mg Normal [place] Comment on above: Performed By: #### C MP #### [facility] [place] [facility] [address] [place] [address] Dr. Bharati Aguiar Vital Signs Date Time Vital Sign Value Performing Clinician Facility 09-02-2024 09:44-0500 Body height 168.91 cm [facility] 09-02-2024 09:44-0500 Body mass index (BMI) [Ratio] 32.4 kg/m2 [facility] 09-02-2024 09:44-0500 Body weight 92.53 kg [facility] 09-02-2024 09:44-0500 Diastolic blood pressure 80 mm[Hg] [facility] 09-02-2024 09:44-0500 Heart rate 46 /min [facility] 09-02-2024 09:44-0500 Respiratory rate 12 /min [facility] 09-02-2024 09:44-0500 Systolic blood pressure 130 mm[Hg] [facility] 08-08-2024 09:07-0500 Body height 167.6 cm Christo Howard APRN.[employer] Work Phone: [facility] 08-08-2024 09:07-0500 Body mass index (BMI) [Ratio] 33.82 kg/m2 Christo Howard APRN.[employer] Work Phone: [facility] 08-08-2024 09:07-0500 Body temperature 97.9 [degF] Christo Howard APRN.[employer] Work Phone: [facility] 08-08-2024 09:07-0500 Body weight 95 kg Christo Howard APRN.[employer] Work Phone: [facility] 08-08-2024 09:07-0500 Diastolic blood pressure 56 mm[Hg] Christo Howard APRN.[employer] Work Phone: [facility] 08-08-2024 09:07-0500 Heart rate 57 /min Christo Howard APRN.[employer] Work Phone: [facility] 08-08-2024 09:07-0500 Respiratory rate 16 /min Christo Howard APRN.[employer] Work Phone: [facility] 08-08-2024 09:07-0500 SaO2% (BldA) [Mass fraction] 99 % Christo Howard APRN.[employer] Work Phone: [facility] 08-08-2024 09:07-0500 Systolic blood pressure 149 mm[Hg] Christo Howard APRN.[employer] Work Phone: [facility] 06-10-2024 14:25-0500 Body height 168.91 cm [facility] 06-10-2024 14:25-0500 Body mass index (BMI) [Ratio] 32.8 kg/m2 [facility] 06-10-2024 14:25-0500 Body weight 93.55 kg [facility] 06-10-2024 14:25-0500 Diastolic blood pressure 79 mm[Hg] [facility] 06-10-2024 14:25-0500 Heart rate 61 /min [facility] 06-10-2024 14:25-0500 Respiratory rate 12 /min [facility] 06-10-2024 14:25-0500 Systolic blood pressure 153 mm[Hg] [facility] 05-09-2024 08:52-0400 Body mass index (BMI) [Ratio] 32.79 kg/m2 Marco A Esqueda MD Work Phone: [facility] 05-09-2024 08:52-0400 Body temperature 97.3 [degF] Marco A Esqueda MD Work Phone: [facility] 05-09-2024 08:52-0400 Body weight 92.1 kg Marco A Esqueda MD Work Phone: [facility] 05-09-2024 08:52-0400 Diastolic blood pressure 62 mm[Hg] Marco A Esqueda MD Work Phone: [facility] 05-09-2024 08:52-0400 Heart rate 62 /min Marco A Esqueda MD Work Phone: [facility] 05-09-2024 08:52-0400 Respiratory rate 16 /min Marco A Esqueda MD Work Phone: [facility] 05-09-2024 08:52-0400 SaO2% (BldA) [Mass fraction] 99 % Marco A Esqueda MD Work Phone: [facility] 05-09-2024 08:52-0400 Systolic blood pressure 141 mm[Hg] Marco A Esqueda MD Work Phone: [facility] 04-19-2024 08:15-0400 Blood Pressure Location Anthony SCRUGGS [facility] 04-19-2024 08:15-0400 Body temperature 98.6 [degF] Anthony SCRUGGS [facility] 04-19-2024 08:15-0400 Diastolic blood pressure 69 mm[Hg] Anthony SCRUGGS [facility] 04-19-2024 08:15-0400 Heart rate 64 /min Anthony SCRUGGS [facility] 04-19-2024 08:15-0400 Respiratory rate 17 /min Anthony SCRUGGS [facility] 04-19-2024 08:15-0400 Systolic blood pressure 129 mm[Hg] Anthony SCRUGGS [facility] 03-26-2024 08:37-0400 Body height 168.91 cm [facility] 03-26-2024 08:37-0400 Body mass index (BMI) [Ratio] 33 kg/m2 [facility] 03-26-2024 08:37-0400 Body weight 94.12 kg [facility] 03-26-2024 08:37-0400 Diastolic blood pressure 80 mm[Hg] [facility] 03-26-2024 08:37-0400 Heart rate 52 /min [facility] 03-26-2024 08:37-0400 Respiratory rate 12 /min [facility] 03-26-2024 08:37-0400 Systolic blood pressure 130 mm[Hg] [facility] 02-02-2024 11:06-0400 Body height 167.6 cm Lynne Gross [employer] Work Phone: [facility] 02-02-2024 11:06-0400 Body mass index (BMI) [Ratio] 33.36 kg/m2 Lynne Gross [employer] Work Phone: [facility] 02-02-2024 11:06-0400 Body temperature 97.3 [degF] Lynne Gross [employer] Work Phone: [facility] 02-02-2024 11:06-0400 Body weight 93.7 kg Lynne Gross [employer] Work Phone: [facility] 02-02-2024 11:06-0400 Diastolic blood pressure 54 mm[Hg] Lynne Gross [employer] Work Phone: [facility] 02-02-2024 11:06-0400 Heart rate 52 /min Lynne Gross [employer]ER.[employer] Work Phone: [facility] 02-02-2024 11:06-0400 Respiratory rate 16 /min Lynne Gross [employer]ER.[employer] Work Phone: [facility] 02-02-2024 11:06-0400 SaO2% (BldA) [Mass fraction] 98 % Lynne Gross [employer] Work Phone: [facility] 02-02-2024 11:06-0400 Systolic blood pressure 137 mm[Hg] Lynne Gross [employer] Work Phone: [facility] 11-23-2023 08:38-0400 Body height 168.91 cm [facility] 11-23-2023 08:38-0400 Body mass index (BMI) [Ratio] 33.2 kg/m2 [facility] 11-23-2023 08:38-0400 Body weight 94.8 kg [facility] 11-23-2023 08:38-0400 Diastolic blood pressure 69 mm[Hg] [facility] 11-23-2023 08:38-0400 Heart rate 48 /min [facility] 11-23-2023 08:38-0400 Respiratory rate 12 /min [facility] 11-23-2023 08:38-0400 Systolic blood pressure 130 mm[Hg] [facility] 11-02-2023 09:14-0400 Body height 167.6 cm Christo Howard APRN.[employer] Work Phone: [facility] 11-02-2023 09:14-0400 Body temperature 97.81 [degF] Christo Howard APRN.[employer] Work Phone: [facility] 11-02-2023 09:14-0400 Body weight 92.9 kg Christo Howard APRN.[employer] Work Phone: [facility] 11-02-2023 09:14-0400 Diastolic blood pressure 44 mm[Hg] Christo Howard APRN.[employer] Work Phone: [facility] 11-02-2023 09:14-0400 Heart rate 56 /min Christo Howard APRN.[employer] Work Phone: [facility] 11-02-2023 09:14-0400 Respiratory rate 16 /min Christo Howard APRN.[employer] Work Phone: [facility] 11-02-2023 09:14-0400 SaO2% (BldA) [Mass fraction] 97 % Christo Howard APRN.[employer] Work Phone: [facility] 11-02-2023 09:14-0400 Systolic blood pressure 123 mm[Hg] Christo Howard APRN.[employer] Work Phone: [facility] 10-20-2023 09:05-0400 Blood Pressure Location Anthony SCRUGGS [...] pressure 110 mm[Hg] Anthony SCRUGGS [facility] 09-12-2023 14:13-0500 Body height 168.91 cm [facility] 09-12-2023 14:13-0500 Body mass index (BMI) [Ratio] 33.4 kg/m2 [facility] 09-12-2023 14:13-0500 Body weight 95.42 kg [facility] 09-12-2023 14:13-0500 Diastolic blood pressure 84 mm[Hg] [facility] 09-12-2023 14:13-0500 Heart rate 56 /min [facility] 09-12-2023 14:13-0500 Respiratory rate 12 /min [facility] 09-12-2023 14:13-0500 Systolic blood pressure 143 mm[Hg] [facility] 08-24-2023 08:30-0500 Body height 168.91 cm Jamar Ball Other [facility] [employer] Other 08-24-2023 08:30-0500 Body mass index (BMI) [Ratio] 34.08 kg/m2 Jamar Ball Other [facility] [employer] Other 08-24-2023 08:30-0500 Body weight 97.25 kg Jamar Ball Other [facility] [employer] Other 08-24-2023 08:30-0500 Diastolic blood pressure 81 mm[Hg] Jamar Ball Other [facility] [employer] Other 08-24-2023 08:30-0500 Respiratory rate 12 /min Jamar Ball Other [employer] Other 08-24-2023 08:30-0500 Systolic blood pressure 125 mm[Hg] Jamar Ball Other [employer] Other 05-30-2023 15:00-0500 Body height 168.91 cm Jamar Ball Other [employer] Other 05-30-2023 15:00-0500 Body mass index (BMI) [Ratio] 32.84 kg/m2 Jamar Ball Other [employer] Other 05-30-2023 15:00-0500 Body weight 93.71 kg Jamar Ball Other [employer] Other 05-30-2023 15:00-0500 Diastolic blood pressure 66 mm[Hg] Jamar Ball Other [employer] Other 05-30-2023 15:00-0500 Respiratory rate 12 /min Jamar Ball Other [employer] Other 05-30-2023 15:00-0500 Systolic blood pressure 141 mm[Hg] Jamar Ball Other [employer] Other 05-01-2023 09:45-0400 Body height 168.91 cm Jamar Ball Other [employer] Other 05-01-2023 09:45-0400 Body mass index (BMI) [Ratio] 32.14 kg/m2 Jamar Ball Other [employer] Other 05-01-2023 09:45-0400 Body weight 91.72 kg Jamar Ball Other [employer] Other 05-01-2023 09:45-0400 Diastolic blood pressure 62 mm[Hg] Jamar Ball Other [facility] [employer] Other 05-01-2023 09:45-0400 Respiratory rate 12 /min Jamar Ball Other [employer] [facility] [employer] Other 05-01-2023 09:45-0400 Systolic blood pressure 129 mm[Hg] Jamar Ball Other [facility] [employer] Other 04-27-2023 09:23-0400 Diastolic blood pressure 49 mm[Hg] Christo Howard APRN.[employer]KE [employer] Work Phone: [facility] 04-27-2023 09:23-0400 Heart rate 50 /min Christo Howard APRN.[employer] Work Phone: [facility] 04-27-2023 09:23-0400 Systolic blood pressure 141 mm[Hg] Christo Howard APRN.[employer] Work Phone: [facility] 04-27-2023 09:20-0400 Body height 167.6 cm Christo Howard APRN.[employer] Work Phone: [facility] 04-27-2023 09:20-0400 Body temperature 97 [degF] Christo Howard APRN.[employer] Work Phone: [facility] 04-27-2023 09:20-0400 Body weight 92.53 kg Christo Howard APRN.[employer] Work Phone: [facility] 04-27-2023 09:20-0400 Respiratory rate 16 /min Christo Howard APRN.[employer] Work Phone: [facility] 04-27-2023 09:20-0400 SaO2% (BldA) [Mass fraction] 100 % Christo Howard APRN.[employer] Work Phone: [facility] 04-17-2023 08:45-0400 Blood Pressure Location Anthony SCRUGGS [facility] 04-17-2023 08:45-0400 Diastolic blood pressure 68 mm[Hg] Anthony SCRUGGS [facility] 04-17-2023 08:45-0400 Heart rate 62 /min Anthony SCRUGGS [facility] 04-17-2023 08:45-0400 Respiratory rate 16 /min Anthony SCRUGGS [facility] 04-17-2023 08:45-0400 Systolic blood pressure 130 mm[Hg] Anthony SCRUGGS [facility] 04-05-2023 13:45-0400 Body height 168.91 cm Jamar Ball Other [employer] [facility] [employer] Other 04-05-2023 13:45-0400 Body mass index (BMI) [Ratio] 32.46 kg/m2 Jamar Ball Other [employer] [facility] [employer] Other 04-05-2023 13:45-0400 Body weight 92.63 kg Jamar Ball Other [employer] Other 04-05-2023 13:45-0400 Diastolic blood pressure 67 mm[Hg] Jamar Ball Other [employer] Other 04-05-2023 13:45-0400 Respiratory rate 12 /min Jamar Ball Other [employer] Other 04-05-2023 13:45-0400 Systolic blood pressure 109 mm[Hg] Jamar Ball Other [employer] Other 03-15-2023 08:45-0400 Body height 168.91 cm Jamar Ball Other [employer] Other 03-15-2023 08:45-0400 Body mass index (BMI) [Ratio] 32.81 kg/m2 Jamar Ball Other [employer] Other 03-15-2023 08:45-0400 Body weight 93.62 kg Jamar Ball Other [employer] Other 03-15-2023 08:45-0400 Diastolic blood pressure 69 mm[Hg] Jamar Ball Other [employer] Other 03-15-2023 08:45-0400 Respiratory rate 12 /min Jamar Ball Other [employer] Other 03-15-2023 08:45-0400 Systolic blood pressure 131 mm[Hg] Jamar Ball Other [employer] Other 02-02-2023 09:32-0400 Body height 167.6 cm Marco A Esqueda MD Work Phone: [facility] 02-02-2023 09:32-0400 Body temperature 97.2 [degF] Marco A Esqueda MD Work Phone: [facility] 02-02-2023 09:32-0400 Body weight 96.62 kg Marco A Esqueda MD Work Phone: [facility] 02-02-2023 09:32-0400 Diastolic blood pressure 43 mm[Hg] Marco A Esqueda MD Work Phone: [facility] 02-02-2023 09:32-0400 Heart rate 50 /min Marco A Esqueda MD Work Phone: [facility] 02-02-2023 09:32-0400 Respiratory rate 16 /min Marco A Esqueda MD Work Phone: [facility] 02-02-2023 09:32-0400 SaO2% (BldA) [Mass fraction] 97 % Marco A Esqueda MD Work Phone: [facility] 02-02-2023 09:32-0400 Systolic blood pressure 131 mm[Hg] Marco A Esqueda MD Work Phone: [facility] 11-10-2022 09:30-0400 Body height 167.6 cm Christo Howard APRN.[employer] Work Phone: [facility] 11-10-2022 09:30-0400 Body temperature 97.11 [degF] Christo Howard APRN.[employer] Work Phone: [facility] 11-10-2022 09:30-0400 Body weight 96.44 kg Christo Howard APRN.[employer] Work Phone: [facility] 11-10-2022 09:30-0400 Diastolic blood pressure 68 mm[Hg] Christo Howard APRN.[employer] Work Phone: [facility] 11-10-2022 09:30-0400 Heart rate 54 /min Christo Howard APRN.[employer] Work Phone: [facility] 11-10-2022 09:30-0400 Respiratory rate 16 /min Christo Howard APRN.[employer] Work Phone: [facility] 11-10-2022 09:30-0400 SaO2% (BldA) [Mass fraction] 98 % Christo Howard APRN.[employer] Work Phone: [facility] 11-10-2022 09:30-0400 Systolic blood pressure 134 mm[Hg] Christo Howard APRN.[employer] Work Phone: [facility] 09-16-2022 08:30-0500 Body height 168.91 cm Jamar Ball Other [employer] Other 09-16-2022 08:30-0500 Body mass index (BMI) [Ratio] 33.16 kg/m2 Jamar Ball Other [employer] Other 09-16-2022 08:30-0500 Body weight 94.62 kg Jamar Ball Other [employer] Other 09-16-2022 08:30-0500 Diastolic blood pressure 78 mm[Hg] Jamar Ball Other [employer] Other 09-16-2022 08:30-0500 Respiratory rate 12 /min Jamar Ball Other [employer] Other 09-16-2022 08:30-0500 Systolic blood pressure 116 mm[Hg] Jamar Ball Other [employer] Other 09-09-2022 08:30-0500 Body height 168.91 cm Jamar Ball Other [employer] Other 09-09-2022 08:30-0500 Body mass index (BMI) [Ratio] 33.45 kg/m2 Jamar Ball Other [employer] Other 09-09-2022 08:30-0500 Body weight 95.44 kg Jamar Ball Other [employer] Other 09-09-2022 08:30-0500 Diastolic blood pressure 76 mm[Hg] Jamar Ball Other [employer] Other 09-09-2022 08:30-0500 Respiratory rate 12 /min Jamar Ball Other [employer] Other 09-09-2022 08:30-0500 Systolic blood pressure 118 mm[Hg] Jamar Ball Other [employer] Other 09-09-2022 07:30-0500 Body height 168.91 cm Jamar Ball Other [employer] Other 09-09-2022 07:30-0500 Body mass index (BMI) [Ratio] 33.45 kg/m2 Jamar Ball Other [employer] Other 09-09-2022 07:30-0500 Body weight 95.44 kg Jamar Ball Other [employer] Other 09-09-2022 07:30-0500 Diastolic blood pressure 76 mm[Hg] Jamar Ball Other [employer] Other 09-09-2022 07:30-0500 Respiratory rate 12 /min Jamar Ball Other [employer] Other 09-09-2022 07:30-0500 Systolic blood pressure 118 mm[Hg] Jamar Ball Other [employer] Other 08-11-2022 09:24-0500 Body height 167.6 cm Marco A Esqueda MD Work Phone: [facility] 08-11-2022 09:24-0500 Body temperature 97 [degF] Marco A Esqueda MD Work Phone: [facility] 08-11-2022 09:24-0500 Body weight 96.44 kg Marco A Esqueda MD Work Phone: [facility] 08-11-2022 09:24-0500 Diastolic blood pressure 56 mm[Hg] Marco A Esqueda MD Work Phone: [facility] 08-11-2022 09:24-0500 Heart rate 53 /min Marco A Esqueda MD Work Phone: [facility] 08-11-2022 09:24-0500 Respiratory rate 16 /min Marco A Esqueda MD Work Phone: [facility] 08-11-2022 09:24-0500 SaO2% (BldA) [Mass fraction] 97 % Marco A Esqueda MD Work Phone: [facility] 08-11-2022 09:24-0500 Systolic blood pressure 129 mm[Hg] Marco A Esqueda MD Work Phone: [facility] 07-21-2022 15:30-0500 Body height 168.91 cm Jamar Ball Other [employer] Other 07-21-2022 15:30-0500 Body mass index (BMI) [Ratio] 34.18 kg/m2 Jamar Ball Other [employer] Other 07-21-2022 15:30-0500 Body weight 97.52 kg Jamar Ball Other [employer] Other 07-21-2022 15:30-0500 Diastolic blood pressure 76 mm[Hg] Jamar Ball Other [employer] Other 07-21-2022 15:30-0500 Respiratory rate 16 /min Jamar Ball Other [employer] Other 07-21-2022 15:30-0500 Systolic blood pressure 118 mm[Hg] Jamar Ball Other [facility] [employer] Other 05-13-2022 09:07-0400 Blood Pressure Location Anthony [...] 97.81 [degF] LUAN Khan MD Work Phone: [facility] 05-12-2022 10:41-0400 Body weight 95.07 kg LUAN Khan MD Work Phone: [facility] 05-12-2022 10:41-0400 Diastolic blood pressure 42 mm[Hg] LUAN Khan MD Work Phone: [facility] 05-12-2022 10:41-0400 Heart rate 51 /min LUAN Khan MD Work Phone: [facility] 05-12-2022 10:41-0400 Respiratory rate 18 /min LUAN Khan MD Work Phone: [facility] 05-12-2022 10:41-0400 SaO2% (BldA) [Mass fraction] 99 % LUAN Khan MD Work Phone: [facility] 05-12-2022 10:41-0400 Systolic blood pressure 134 mm[Hg] LUAN Khan MD Work Phone: [facility] 02-17-2022 09:36-0400 Body height 167.6 cm Marco A Esqueda MD Work Phone: [facility] 02-17-2022 09:36-0400 Body temperature 97.9 [degF] Marco A Esqueda MD Work Phone: [facility] 02-17-2022 09:36-0400 Body weight 97.07 kg Marco A Esqueda MD Work Phone: [facility] 02-17-2022 09:36-0400 Diastolic blood pressure 58 mm[Hg] Marco A Esqueda MD Work Phone: [facility] 02-17-2022 09:36-0400 Heart rate 63 /min Marco A Esqueda MD Work Phone: [facility] 02-17-2022 09:36-0400 Respiratory rate 16 /min Marco A Esqueda MD Work Phone: [facility] 02-17-2022 09:36-0400 SaO2% (BldA) [Mass fraction] 99 % Marco A Esqueda MD Work Phone: [facility] 02-17-2022 09:36-0400 Systolic blood pressure 133 mm[Hg] Marco A Esqueda MD Work Phone: [facility] 11-18-2021 10:50-0400 Body temperature 97.7 [degF] [facility] [place] Work Phone: [facility] 11-18-2021 10:50-0400 Diastolic blood pressure 63 mm[Hg] [facility] [place] Work Phone: [facility] 11-18-2021 10:50-0400 Heart rate 60 /min [facility] [place] Work Phone: [facility] 11-18-2021 10:50-0400 Respiratory rate 18 /min [facility] [place] Work Phone: [facility] 11-18-2021 10:50-0400 SaO2% (BldA) [Mass fraction] 95 % [facility] [place] Work Phone: [facility] 11-18-2021 10:50-0400 Systolic blood pressure 139 mm[Hg] [facility] [place] Work Phone: [facility] 11-11-2021 13:58-0400 Body height 167.6 cm Marco A Esqueda MD Work Phone: [facility] 11-11-2021 13:58-0400 Body temperature 97.39 [degF] Marco A Esqueda MD Work Phone: [facility] 11-11-2021 13:58-0400 Body weight 98.97 kg Marco A Esqueda MD Work Phone: [facility] 11-11-2021 13:58-0400 Diastolic blood pressure 54 mm[Hg] Marco A Esqueda MD Work Phone: [facility] 11-11-2021 13:58-0400 Heart rate 68 /min Marco A Esqueda MD Work Phone: [facility] 11-11-2021 13:58-0400 Respiratory rate 16 /min Marco A Esqueda MD Work Phone: [facility] 11-11-2021 13:58-0400 SaO2% (BldA) [Mass fraction] 98 % Marco A Esqueda MD Work Phone: [facility] 11-11-2021 13:58-0400 Systolic blood pressure 130 mm[Hg] Marco A Esqueda MD Work Phone: [facility] 11-08-2021 13:03-0400 Blood Pressure Location Anthonycindy SCRUGGS [facility] 11-08-2021 13:03-0400 Diastolic blood pressure 60 mm[Hg] Anthonycindy SCRUGGS [facility] 11-08-2021 13:03-0400 Heart rate 61 /min Anthony SCRUGGS [facility] 11-08-2021 13:03-0400 Systolic blood pressure 135 mm[Hg] Anthonycindy SCRUGGS [facility] Encounters Encounter Date Encounter Type Care Provider Facility Start: 03-31-2025 ambulatory Anthony SCRUGGS Facili ty:[facility] Start: 02-25-2025 End: 02-25-2025 Bamboo flowsheet Long Boo [employer] Work Phone: [facility] Start: 02-25-2025 End: 02-25-2025 Bamboo flowsheet Long Boo [employer]D [employer] Work Phone: [facility] Start: 02-25-2025 End: 02-25-2025 Office outpatient visit 15 minutes Long Boo APRN-[employer]KE [employer]ING MAKER Work Phone: [facility] Comment on above: Seborrheic keratosis (Primary Dx); Melanocytic nevus of trunk; Actinic keratosis; Lentigines; Psoriasis vulgaris ; History of SCC (squamous cell carcinoma) of skin Start: 02-20-2025 End: 02-20-2025 ambulatory JAMAR FALL Facility:[facility] Start: 2025 End: 2025 ambulatory SAUL TRACEY Facility:[facility] Start: 11-07-2024 End: 11-07-2024 ambulatory JAMAR FALL Facility:[facility] Start: 10-31-2024 End: 10-31-2024 ambulatory JAMAR FALL Facility:[facility] Start: 10-21-2024 End: 10-21-2024 ambulatory Nicole Herrera MD Facility:[facility] Start: 10-07-2024 End: 10-07-2024 ambulatory Anthony SCRUGGS Facility:[facility] Start: 10-07-2024 End: 10-07-2024 ambulatory Nicole Herrera MD Facility:[facility] Start: 09-02-2024 End: 09-02-2024 ambulatory [facility] Work Phone: Start: 09-02-2024 End: 09-02-2024 Patient encounter procedure [facility] Work Phone: Start: 08-30-2024 Patient encounter procedure [facility] Start: 08-08-2024 End: 08-08-2024 ambulatory [facility] Work Phone: Hematology/Oncology Comment on above: Malignant neoplasm o f prostate (HCC) (Primary Dx) Malignant neoplasm o f prostate (HCC) (Primary Dx); Essential hypertension; Coronary artery disease involving [place] heart without angina pectoris, unspecified vessel or lesion type; Type 2 diabetes mellitus without complication, without long-term current use of insulin (HCC) Start: 08-08-2024 End: 08-08-2024 Patient encounter procedure Christo Howard APRN.[employer] Work Phone: Hematology/Oncology Start: 08-01-2024 End: 08-01-2024 ambulatory JAMAR FALL Facility:[facility] Start: 08-01-2024 Non-patient / Non-visit [facility] Work Phone: Start: 07-25-2024 End: 10-16-2024 Telephone encounter Marco A Esqueda MD Work Phone: [facility] Comment on above: Lab Orders Start: 06-10-2024 End: 06-10-2024 Patient encounter procedure [facility] Work Phone: Start: 05-09-2024 End: 05-09-2024 ambulatory [facility] [place] Work Phone: Hematology/Oncology Comment on above: Malignant neoplasm o f prostate (HCC) (Primary Dx) Start: 05-09-2024 End: 05-09-2024 Patient encounter procedure Marco A Esqueda MD Work Phone: Hematology/Oncology Start: 05-08-2024 End: 05-08-2024 Refill Aida Luo [facility] Work Phone: [facility] Comment on above: Refill Request Start: 05-03-2024 End: 05-03-2024 ambulatory JAMAR FALL Facility:[facility] Start: 04-19-2024 End: 04-19-2024 ambulatory Anthony SCRUGGS Facility:[facility] Start: 04-19-2024 End: 04-19-2024 Patient encounter procedure Anthony SCRUGGS [facility] Start: 04-01-2024 End: 04-01-2024 Refill Marco A Esqueda MD Work Phone: Hematology/Oncology Comment on above: Refill Request Start: 04-01-2024 End: 04-01-2024 Refill Aida Luo [facility] Work Phone: [facility] Comment on above: Refill Request Start: 03-29-2024 Encounter for preprocedural cardiovascular examination [facility] Start: 03-29-2024 End: 04-01-2024 ambulatory [facility] Start: 03-29-2024 End: 04-01-2024 Encounter for other preprocedural examination [facility] Start: 03-29-2024 End: 04-01-2024 Encounter for preprocedural cardiovascular examination [facility] Start: 03-26-2024 End: 03-26-2024 ambulatory [facility] Work Phone: Start: 03-26-2024 End: 03-26-2024 Patient encounter procedure [facility] Phys[facility] Work Phone: Start: 02-29-2024 End: 02-29-2024 ambulatory ALEXIA FRANCO Not Available Start: 02-26-2024 End: 02-26-2024 ambulatory LONG Galo TOM Not Available Start: 02-02-2024 End: 02-02-2024 ambulatory [facility] Krishnan Work Phone: Hematology/Oncology Comment on above: Malignant neoplasm o f prostate (HCC) (Primary Dx) Start: 02-02-2024 End: 02-02-2024 Patient encounter procedure Lynne Rajan APRN.[employer]KE [employer]ING [employer] Work Phone: Hematology/Oncology Comment on above: Malignant neoplasm o f prostate (HCC) (Primary Dx) Start: 01-25-2024 Non-patient / Non-visit [facility] Work Phone: Start: 11-23-2023 End: 11-23-2023 ambulatory [facility] Work Phone: Start: 11-23-2023 End: 11-23-2023 Patient encounter procedure [facility] Work Phone: Start: 11-02-2023 End: 11-02-2023 ambulatory [facility] Ariella Work Phone: Hematology/Oncology Comment on above: Malignant neoplasm o f prostate (HCC) (Primary Dx) Malignant neoplasm o f prostate (HCC) (Primary Dx); Essential hypertension; Coronary artery disease involving [place] heart without angina pectoris, unspecified vessel or lesion type; Type 2 diabetes mellitus without complication, without long-term current use of insulin (HCC); Lesion of skin of right ear; Abdominal discomfort Start: 11-02-2023 End: 11-02-2023 Patient encounter procedure Christo Duke [employer]ER.[employer] Work Phone: [facility] Start: 10-30-2023 Non-patient / Non-visit [facility] Work Phone: Start: 10-20-2023 End: 10-20-2023 ambulatory Anthony SCRUGGS Facility:[facility] Start: 10-20-2023 End: 10-20-2023 Patient encounter procedure Anthoyn SCRUGGS [facility] Start: 10-09-2023 Non-patient / Non-visit [facility] Work Phone: Start: 09-28-2023 End: 09-28-2023 ambulatory PABLO CHRISTINA Not Available Start: 09-12-2023 End: 09-12-2023 Patient encounter procedure [facility] Work Phone: Start: 09-06-2023 Non-patient / Non-visit [facility] Work Phone: Start: 08-28-[address] CROWD [employer]OLLER-[employer] Work Phone: [facility] Start: 08-28-[address] [employer]OWD [employer]ER-[employer] Work Phone: [facility] Start: 08-28-2023 End: 08-28-2023 Patient encounter procedure Long Boo [employer]D [employer]ER[employer] Work Phone: [facility] Comment on above: Neoplasm of unspecif ied behavior of bone, soft tissue, and skin; Actinic keratosis Start: 08-28-2023 End: 08-28-2023 ambulatory LONG BOO Not Available Start: 08-24-2023 End: 08-24-2023 ambulatory Jamar Fall Other [employer] Other Start: 08-24-2023 Patient encounter procedure Jamar Fall [facility] Start: 08-04-2023 End: 08-04-2023 ambulatory Jamar Fall Other [employer] Other Start: 08-04-2023 Telephone encounter Jamar Fall [facility] Start: 06-22-2023 End: 06-22-2023 ambulatory [facility] Start: 06-05-2023 Telephone encounter Jamar EDMONDS Zach [facility] Start: 06-05-2023 End: 06-05-2023 ambulatory EMELINA LOUIS [employer] Other Start: 05-30-2023 End: 05-30-2023 ambulatory Jamar Fall Other [employer] Other Start: 05-30-2023 Office outpatient vi sit 15 minutes Jamar Fall [facility] Start: 05-01-2023 End: 05-01-2023 ambulatory Jamar Fall Other [employer] Other Start: 05-01-2023 Office outpatient vi sit 15 minutes Jamar Fall [facility] Start: 04-27-2023 Telephone encounter Jamar Juan David GREY Zach [facility] Start: 04-27-2023 End: 04-27-2023 ambulatory [facility] Krishnan Work Phone: Hematology/Oncology Comment on above: Malignant neoplasm o f prostate (HCC) (Primary Dx) Malignant neoplasm o f prostate (HCC) (Primary Dx); Coronary artery disease involving [place] heart without angina pectoris, unspecified vessel or lesion type; Essential hypertension; Type 2 diabetes mellitus without complication, without long-term current use of insulin (HCC) Start: 04-27-2023 End: 04-27-2023 Patient encounter procedure Christo Howard ERIC Work Phone: [facility] Start: 04-25-2023 End: 04-25-2023 ambulatory Jamar Ball Other [employer] Other Start: 04-25-2023 Telephone encounter Jamar Ball [facility] Start: 04-18-2023 End: 04-18-2023 ambulatory Jamar Ball Other [employer] Other Start: 04-18-2023 Telephone encounter Jamar Ball [facility] Start: 04-17-2023 End: 04-17-2023 Patient encounter procedure Anthony SCRUGGS [facility] Start: 04-12-2023 End: 04-12-2023 ambulatory Jamar Ball Other [employer] Other Start: 04-12-2023 Telephone encounter Jamar Ball [facility] Start: 04-06-2023 End: 04-06-2023 ambulatory Jamar Ball Other [employer] Other Start: 04-06-2023 Telephone encounter Jamar Ball [facility] Start: 04-05-2023 End: 04-05-2023 ambulatory Jamar Ball Other [employer] Other Start: 04-05-2023 Office outpatient vi sit 15 minutes Jamar Ball [facility] Start: 04-05-2023 Telephone encounter Jamar Ball [facility] Start: 03-15-2023 End: 03-15-2023 ambulatory Jamar Ball Other [employer] Other Start: 03-15-2023 Office outpatient vi sit 25 minutes Jamar Ball [facility] Start: 02-05-2023 End: 02-05-2023 ambulatory Jamar Fall Other [employer] Other Start: 02-05-2023 Telephone encounter Jamar Fall G [facility] Start: 02-02-2023 End: 02-02-2023 ambulatory [facility] [place] Work Phone: Hematology/Oncology Comment on above: Malignant neoplasm o f prostate (HCC) (Primary Dx) Start: 02-02-2023 End: 02-02-2023 Patient encounter procedure Marco A Esqueda MD Work Phone: [employer] Start: 11-15-2022 End: 11-15-2022 ambulatory Jamar Fall Other [employer] Other Start: 11-15-2022 Encounter by [employer] Jamar Fall [facility] Start: 11-11-2022 End: 11-11-2022 ambulatory Jamar Fall Other [employer] Other Start: 11-11-2022 Encounter by [employer] Jamar Fall [facility] Start: 11-10-2022 End: 11-10-2022 ambulatory [facility] Work Phone: Hematology/Oncology Comment on above: Malignant neoplasm o f prostate (HCC) (Primary Dx) Malignant neoplasm o f prostate (HCC) (Primary Dx); Coronary artery disease involving [place] heart without angina pectoris, unspecified vessel or lesion type; Essential hypertension; Type 2 diabetes mellitus without complication, without long-term current use of insulin (HCC) Start: 11-10-2022 End: 11-10-2022 Patient encounter procedure Christo Howard APRN.CNP Work Phone: [employer] Start: 10-25-2022 End: 10-26-[address] ANTHONY SCRUGGS . Facility: Start: 09-16-2022 End: 09-16-2022 ambulatory Jamar Fall Other [employer] Other Start: 09-16-2022 Office outpatient vi sit 15 minutes Jamar Fall [facility] Start: 09-09-2022 End: 09-09-2022 ambulatory Jamar Fall Other [employer] Other Start: 09-09-2022 Patient encounter procedure Jamar MENDIETA [facility] Start: 09-05-2022 End: 09-06-2022 ambulatory NONE LISTED REQUEST Facility: Start: 08-11-2022 End: 08-11-2022 ambulatory [facility] [place] Work Phone: Hematology/Oncology Comment on above: Malignant neoplasm o f prostate (HCC) (Primary Dx) Malignant neoplasm o f prostate (HCC) (Primary Dx); Bone metastasis (HCC); Coronary artery disease involving [place] heart without angina pectoris, unspecified vessel or lesion type; Essential hypertension; Type 2 diabetes mellitus without complication, without long-term current use of insulin (HCC) Start: 08-11-2022 End: 08-11-2022 Patient encounter procedure Marco A Esqueda MD Work Phone: [employer] Start: 07-21-2022 End: 07-22-[address] JAMAR FALL [place] [facility] [employer] Other Start: 07-21-2022 Office outpatient vi sit 15 minutes Jamar Fall [facility] Start: 07-21-2022 Patient encounter procedure Jamar Fall [facility] Start: 07-21-2022 Telephone encounter Jamar EDMONDS [facility] Start: 05-27-2022 End: 05-28-2022 ambulatory NONE LISTED REQUEST Facility: Start: 05-13-2022 End: 05-13-2022 Patient encounter procedure Anthony SCRUGGS [facility] Start: 05-12-2022 End: 05-12-2022 Patient encounter procedure Zach Khan MD Work Phone: Radiation Oncology Comment on above: Malignant neoplasm o f prostate (HCC) (Primary Dx) Start: 05-12-2022 End: 05-12-2022 ambulatory [facility] Work Phone: Hematology/Oncology Comment on above: Malignant [...] procedure Marco A Esqueda MD Work Phone: [employer] Start: 01-25-2022 End: 01-26-[address] DE LISTED REQUEST Facility: Start: 12-06-2021 Telephone encounter Clementine steinberg RN Work Phone: Hematology/Oncology Comment on above: Care Coordination (R efill Question) Start: 11-18-2021 End: 11-18-2021 ambulatory [facility] Work Phone: Hematology/Oncology Comment on above: Malignant [...] (Enzalutamide) Start: 11-04-2021 Telephone encounter Aida Coles [facility] Work Phone: Hematology/Oncology Comment on above: Medication [...] Orders Start: 07-22-2021 Adult health examination Bam rodriguez Juan David Other [employer] Other Procedures Date Procedure Procedure Detail Performing Clinician Start: 02-25-2025 CRYOTHERAPY SKIN LESION Long Boo [employer] Work Phone: Start: 08-28-2023 CRYOTHERAPY SKIN LESION Long Boo [employer]KE [employer]ING [employer] Work Phone: Start: 08-28-2023 SKIN / NAIL BIOPSY Windy Boo [employer]OWD CONTRO[employer]KE [employer]ING [employer] Work Phone: Start: 07-17-2023 Decompression of med anthony nerve Anthony KAEL Start: 10-25-[address] JESE FALL Comment on above: Performed By: #### P SAD #### [facility] [place] [facility] [address], [place] [address] Dr. Bharati Aguiar Start: 05-05-[address] JESE FALL Comment on above: Performed By: #### P SAD ####[facility] [place] [id number] [place], [place] [address]QnDr. Bharati Aguiar Start: 02-16-2022 Adult depression scr [...] David Other Start: 11-05-2014 Radical prostatectomy Ruperto krishnagisella SCRUGGS Start: 08-25-2014 Pre-surgery evaluation Jamar Fall [...] Anthony SCRUGGS Colonoscopy Anthony SCRUGGS Depression screening Gamalieldoretha chaka Fall Other Plan of Treatment Date Care Activity Detail Author Start: 04-25-2034 Urine microalbumin profile DTaP,Tdap,Td Vaccine (6 - Td or Tdap) [facility] Start: 08-01-2027 Diabetes Screening Diabetes Screening [facility] Start: 05-03-2027 Diabetes Screening Diabetes Screening [facility] Start: 01-24-2027 Diabetes Screening Diabetes Screening [facility] Start: 10-29-2026 Diabetes Screening Diabetes Screening [facility] Start: 04-24-2026 Diabetes Screening Diabetes Screening [facility] Start: 02-26-2026 End: 02-26-2026 Patient encounter procedure 02/26/2026 10:25 AM EDT [facility] [address] [place] [address] Long Boo, [employer]KE [employer]ING [employer] [address] [place] [address] [facility] Start: 02-02-2026 DIABETES SCREEN DIABETES SCREEN [facility] Start: 11-10-2025 DIABETES SCREEN DIABETES SCREEN [facility] Start: 08-11-2025 DIABETES SCREEN DIABETES SCREEN [facility] Start: 05-12-2025 DIABETES SCREEN DIABETES SCREEN [facility] Start: 03-17-2025 Influenza vaccination Influenza Vaccine (#1) [facility] Start: 02-25-2025 End: 02-25-2025 Patient encounter procedure 02/25/2025 10:20 AM EDT Office Visit [facility] [address] [place] [id number] Long Boo APRN-BRAKE LINING MAKER [address] [place] [address] Arrived [facility] Comment on above: Arrived Start: 02-17-2025 DIABETES SCREEN DIABETES SCREEN [facility] Start: 11-11-2024 DIABETES SCREEN DIABETES SCREEN [facility] Start: 11-07-2024 End: 11-07-2024 Follow-up encounter Hematology/Oncology Comment on above: 3 month lab follow up with xgeva inj Start: 11-06-2024 End: 02-05-2025 CBC W Auto Differential panel - Blood COMPLETE BLOOD COUNT AND DIFFERENTIAL Lab Routine Malignant neoplasm of prostate (HCC) Essential hypertension Coronary artery disease involving [place] heart without angina pectoris, unspecified vessel or lesion type Type 2 diabetes mellitus without complication, without long-term current use of insulin (HCC) Expected: 11/06/2024, Expires: 02/05/2025 [facility] Work Phone: Comment on above: Expected: 11/06/2024, Expires: Start: 11-06-2024 End: 02-05-2025 Comprehensive metabolic 2000 panel - Serum or Plasma COMPREHENSIVE METABOLIC PANEL Lab Routine Malignant neoplasm of prostate (HCC) Essential hypertension Coronary artery disease involving [place] heart without angina pectoris, unspecified vessel or lesion type Type 2 diabetes mellitus without complication, without long-term current use of insulin (HCC) Expected: 11/06/2024, Expires: 02/05/2025 [facility] Comment on above: Expected: 11/06/2024, Expires: Start: 11-06-2024 End: 02-05-2025 Prostate specific Ag [Mass/volume] in Serum or Plasma PROSTATE-SPECIFIC ANTIGEN DIAGNOSTIC Lab Routine Malignant neoplasm of prostate (HCC) Essential hypertension Coronary artery disease involving [place] heart without angina pectoris, unspecified vessel or lesion type Type 2 diabetes mellitus without complication, without long-term current use of insulin (HCC) Expected: 11/06/2024, Expires: 02/05/2025 [facility] Comment on above: Expected: 11/06/2024, Expires: Start: 10-31-2024 End: 10-31-2024 Patient encounter procedure 10/31/2024 9:00 AM EDT Office Visit [facility] [address] [place] [address] lab [facility] Comment on above: lab Start: 10-25-2024 Covid-19 Vaccine () Covid-19 Vaccine () [facility] Start: 08-08-2024 End: 08-08-2024 Follow-up encounter Hematology/Oncology Comment on above: 3 month lab follow up with xgeva inj Start: 08-01-2024 End: 08-01-2024 Patient encounter procedure 08/01/2024 9:00 AM EST Office Visit [facility] [address] [place] [address] 3 month labs [facility] Comment on above: 3 month labs Start: 07-17-2024 Advance Directive Discussion Advance Directive Discussion [facility] Start: 05-09-2024 End: 05-09-2024 Follow-up encounter Hematology/Oncology Comment on above: 3 month lab follow up with xgeva inj Start: 05-07-2024 End: 05-07-2024 Patient encounter procedure 05/07/2024 9:00 AM EDT Office Visit [facility] [address] [place] [address] 3 month lab follow up with xgeva inj [facility] Comment on above: 3 month lab follow up with xgeva inj Start: 05-03-2024 End: 05-03-2024 Patient encounter procedure 05/03/2024 9:00 AM EDT Office Visit [facility] [address] [place] [address] 3 month lab follow up with xgeva inj [facility] Comment on above: 3 month lab follow up with xgeva inj Start: 04-29-2024 End: 07-29-2024 CBC W Auto Differential panel - Blood COMPLETE BLOOD COUNT AND DIFFERENTIAL Lab Routine Malignant neoplasm of prostate (HCC) Expected: 04/29/2024, Expires: 07/29/2024 [facility] Work Phone: Comment on above: Expected: 04/29/2024, Expires: Start: 04-29-2024 End: 07-29-2024 Comprehensive metabolic 2000 panel - Serum or Plasma COMPREHENSIVE METABOLIC PANEL Lab Routine Malignant neoplasm of prostate (HCC) Expected: 04/29/2024, Expires: 07/29/2024 [facility] Comment on above: Expected: 04/29/2024, Expires: Start: 04-29-2024 End: 07-29-2024 Prostate specific Ag [Mass/volume] in Serum or Plasma PROSTATE-SPECIFIC ANTIGEN DIAGNOSTIC Lab Routine Malignant neoplasm of prostate (HCC) Expected: 04/29/2024, Expires: 07/29/2024 [facility] Comment on above: Expected: 04/29/2024, Expires: Start: 03-17-2024 Covid-19 Vaccine ( season) Covid-19 Vaccine () [facility] Start: 03-17-2024 Influenza vaccination Influenza Vaccine (#1) [facility] Start: 02-26-2024 End: 02-26-2024 Patient encounter procedure 02/26/2024 10:10 AM EDT Office Visit [facility] [address] [place] [address] Long Boo APRN-[employer]KE [employer]ING [employer]KER [address] [place] [address] [facility] Start: 11-03-2023 End: 02-02-2024 CBC W Auto Differential panel - Blood COMPLETE BLOOD COUNT AND DIFFERENTIAL Lab Routine Malignant neoplasm of prostate (HCC) Essential hypertension Coronary artery disease involving [place] heart without angina pectoris, unspecified vessel or lesion type Type 2 diabetes mellitus without complication, without long-term current use of insulin (HCC) Lesion of skin of right ear Abdominal discomfort Expected: 11/03/2023, Expires: 02/02/2024 [facility] Work Phone: Comment on above: Expected: 11/03/2023, Expires: 4 Start: 11-03-2023 End: 02-02-2024 Comprehensive metabolic 2000 panel - Serum or Plasma COMPREHENSIVE METABOLIC PANEL Lab Routine Malignant neoplasm of prostate (HCC) Essential hypertension Coronary artery disease involving [place] heart without angina pectoris, unspecified vessel or lesion type Type 2 diabetes mellitus without complication, without long-term current use of insulin (HCC) Lesion of skin of right ear Abdominal discomfort Expected: 11/03/2023, Expires: 02/02/2024 [facility] Work Phone: Comment on above: Expected: 11/03/2023, Expires: Start: 11-03-2023 End: 02-02-2024 Prostate specific Ag [Mass/volume] in Serum or Plasma PROSTATE-SPECIFIC ANTIGEN DIAGNOSTIC Lab Routine Malignant neoplasm of prostate (HCC) Essential hypertension Coronary artery disease involving [place] heart without angina pectoris, unspecified vessel or lesion type Type 2 diabetes mellitus without complication, without long-term current use of insulin (HCC) Lesion of skin of right ear Abdominal discomfort Expected: 11/03/2023, Expires: 02/02/2024 [facility] Work Phone: Comment on above: Expected: 11/03/2023, Expires: 4 Start: 08-28-2023 End: 08-28-2023 Patient encounter procedure 08/28/2023 11:25 AM EST Office Visit [facility] [address] [place] [address] Long Boo APRN[employer]BRAKE [employer]ING [employer]KER [address] [place] [address] Arrived [facility] Comment on above: Arrived Start: 07-28-2023 End: 09-27-2023 CBC W Auto Differential panel - Blood CBC + DIFF Lab Routine Malignant neoplasm of prostate (HCC) Coronary artery disease involving [place] heart without angina pectoris, unspecified vessel or lesion type Essential hypertension Type 2 diabetes mellitus without complication, without long-term current use of insulin (HCC) Expected: 07/28/2023, Expires: 09/27/2023 [facility] Work Phone: Comment on above: Expected: 07/28/2023, Expires: Start: 07-28-2023 End: 09-27-2023 Comprehensive metabolic 2000 panel - Serum or Plasma COMP METABOLIC PANEL Lab Routine Malignant neoplasm of prostate (HCC) Coronary artery disease involving [place] heart without angina pectoris, unspecified vessel or lesion type Essential hypertension Type 2 diabetes mellitus without complication, without long-term current use of insulin (HCC) Expected: 07/28/2023, Expires: 09/27/2023 [facility] Work Phone: Comment on above: Expected: 07/28/2023, Expires: Start: 07-28-2023 End: 09-27-2023 Prostate specific Ag [Mass/volume] in Serum or Plasma PSA/PROSTSPECAG DIAG Lab Routine Malignant neoplasm of prostate (HCC) Coronary artery disease involving [place] heart without angina pectoris, unspecified vessel or lesion type Essential hypertension Type 2 diabetes mellitus without complication, without long-term current use of insulin (HCC) Expected: 07/28/2023, Expires: 09/27/2023 [facility] Work Phone: Comment on above: Expected: 07/28/2023, Expires: Start: 07-17-2023 Advance Directive Discussion Advance Directive Discussion [facility] Start: 07-17-2023 Behavioral Health Screening Behavioral Health Screening [facility] Start: 06-19-2023 Urine microalbumin profile [facility] Start: 05-03-2023 End: 07-03-2023 Basic metabolic 2000 panel - Serum or Plasma BASIC METABOLIC PNL Lab Routine Malignant neoplasm of prostate (HCC) Expected: 05/03/2023 (Approximate), Expires: 07/03/2023 [facility] Work Phone: Comment on above: Expected: 05/03/2023 (Approximate), Expi res: 07/03/2023 Start: 05-03-2023 End: 07-03-2023 CBC W Auto Differential panel - Blood CBC + DIFF Lab Routine Malignant neoplasm of prostate (HCC) Expected: 05/03/2023 (Approximate), Expires: 07/03/2023 [facility] Work Phone: Comment on above: Expected: 05/03/2023 (Approximate), Expi res: 07/03/2023 Start: 05-03-2023 End: 07-03-2023 Prostate specific Ag [Mass/volume] in Serum or Plasma PSA/PROSTSPECAG DIAG Lab Routine Malignant neoplasm of prostate (HCC) Expected: 05/03/2023 (Approximate), Expires: 07/03/2023 [facility] Work Phone: Comment on above: Expected: 05/03/2023 (Approximate), Expi res: 07/03/2023 Start: 05-03-2023 End: 07-03-2023 Testosterone [Mass/volume] in Serum or Plasma TESTOSTERONE TOTAL Lab Routine Malignant neoplasm of prostate (HCC) Expected: 05/03/2023 (Approximate), Expires: 07/03/2023 [facility] Work Phone: Comment on above: Expected: 05/03/2023 (Approximate), Expi res: 07/03/2023 Start: 03-17-2023 Covid-19 Vaccine ( season) Covid-19 Vaccine () [facility] Start: 03-17-2023 Influenza vaccination [facility] Start: 02-16-2023 Adult depression screening assessment DEPRESSION SCREENING [facility] Start: 02-09-2023 End: 04-11-2023 CBC W Auto Differential panel - Blood CBC + DIFF Lab Routine Malignant neoplasm of prostate (HCC) Coronary artery disease involving [place] heart without angina pectoris, unspecified vessel or lesion type Essential hypertension Type 2 diabetes mellitus without complication, without long-term current use of insulin (HCC) Expected: 02/09/2023, Expires: 04/11/2023 [facility] Work Phone: Comment on above: Expected: 02/09/2023, Expires: Start: 02-09-2023 End: 04-11-2023 Comprehensive metabolic 2000 panel - Serum or Plasma COMP METABOLIC PANEL Lab Routine Malignant neoplasm of prostate (HCC) Coronary artery disease involving [place] heart without angina pectoris, unspecified vessel or lesion type Essential hypertension Type 2 diabetes mellitus without complication, without long-term current use of insulin (HCC) Expected: 02/09/2023, Expires: 04/11/2023 [facility] Work Phone: Comment on above: Expected: 02/09/2023, Expires: 3 Start: 02-09-2023 End: 04-11-2023 Prostate specific Ag [Mass/volume] in Serum or Plasma PSA/PROSTSPECAG DIAG Lab Routine Malignant neoplasm of prostate (HCC) Coronary artery disease involving [place] heart without angina pectoris, unspecified vessel or lesion type Essential hypertension Type 2 diabetes mellitus without complication, without long-term current use of insulin (HCC) Expected: 02/09/2023, Expires: 04/11/2023 [facility] Work Phone: Comment on above: Expected: 02/09/2023, Expires: 3 Start: 11-10-2022 Adult depression screening assessment DEPRESSION SCREENING [facility] Start: 08-22-2022 COVID-19 VACCINE (6 - Moderna series) COVID-19 VACCINE (6 - Moderna series) [facility] Start: 07-17-2022 ADVANCE DIRECTIVE DISCUSSION ADVANCE DIRECTIVE DISCUSSION [facility] Start: 07-17-2022 DEPRESSION ASSESSMENT DEPRESSION ASSESSMENT [facility] Start: 05-03-2022 Adult depression screening assessment DEPRESSION SCREENING [facility] Start: 05-03-2022 End: 07-03-2022 CBC W Auto Differential panel - Blood CBC + DIFF Lab Routine Malignant neoplasm of prostate (HCC) Expected: 05/03/2022, Expires: 07/03/2022 [facility] Work Phone: Comment on above: Expected: 05/03/2022, Expires: 2 Start: 05-03-2022 End: 07-03-2022 Comprehensive metabolic 2000 panel - Serum or Plasma COMP METABOLIC PANEL Lab Routine Malignant neoplasm of prostate (HCC) Expected: 05/03/2022, Expires: 07/03/2022 [facility] Work Phone: Comment on above: Expected: 05/03/2022, Expires: 2 Start: 05-03-2022 End: 07-03-2022 Prostate specific Ag [Mass/volume] in Serum or Plasma PSA/PROSTSPECAG DIAG Lab Routine Malignant neoplasm of prostate (HCC) Expected: 05/03/2022, Expires: 07/03/2022 [facility] Work Phone: Comment on above: Expected: 05/03/2022, Expires: 2 Start: 03-17-2022 Influenza vaccination [facility] Start: 11-02-2021 End: 01-02-2022 CBC W Auto Differential panel - Blood CBC + DIFF Lab Routine Malignant neoplasm of prostate (HCC) Expected: 11/02/2021, Expires: 01/02/2022 [facility] Work Phone: Comment on above: Expected: 11/02/2021, Expires: 2 Start: 11-02-2021 End: 01-02-2022 Comprehensive metabolic 2000 panel - Serum or Plasma COMP METABOLIC PANEL Lab Routine Malignant neoplasm of prostate (HCC) Expected: 11/02/2021, Expires: 01/02/2022 [facility] Work Phone: Comment on above: Expected: 11/02/2021, Expires: 2 Start: 09-14-2021 COVID-19 VACCINE (5 - Booster) COVID-19 VACCINE (5 - Booster) [facility] Start: 08-17-2021 COVID-19 VACCINE (4 - Booster for Moderna series) COVID-19 VACCINE (4 - Booster for Moderna series) [facility] Start: 07-17-2021 ADVANCE DIRECTIVE DISCUSSION ADVANCE DIRECTIVE DISCUSSION [facility] Start: 07-17-2021 DEPRESSION ASSESSMENT DEPRESSION ASSESSMENT [facility] Start: 02-22-2021 COVID-19 VACCINE (3 - Booster for Moderna series) COVID-19 VACCINE (3 - Booster for Moderna series) [facility] Start: 06-07-2015 PNEUMOVAX AGE 65 AND OVER WITH 5YR LOOKBACK (#1) PNEUMOVAX AGE 65 AND OVER WITH 5YR LOOKBACK (#1) [facility] Start: 06-20-2013 Urine microalbumin profile DTAP,TDAP,TD (1 - Tdap) [facility] Start: 08-22-2012 SHINGRIX VACCINE (2 of 3) SHINGRIX VACCINE (2 of 3) [facility] Start: 2006 RSV Vaccine (1 - 1-dose 60+ series) RSV Vaccine (1 - 1-dose 60+ series) [facility] Start: 02-14-1996 SHINGRIX VACCINE (1 of 2) SHINGRIX VACCINE (1 of 2) [facility] Start: 1991 COLOGUARD (FIT-DNA) COLOGUARD (FIT-DNA) [facility] Start: 1991 Colonoscopy COLONOSCOPY [facility] Start: 1991 COLORECTAL CANCER SCREENING COLORECTAL CANCER SCREENING [facility] Start: [address] COLONOGRAPHY [facility] Start: 1991 DIABETES SCREEN DIABETES SCREEN [facility] Start: 1991 FECAL OCCULT BLOOD FECAL OCCULT BLOOD [facility] Start: 1991 SIGMOIDOSCOPY SIGMOIDOSCOPY [facility] Start: 1981 LIPID SCREEN LIPID SCREEN [facility] Start: 02-14-1964 Anxiety Screening Anxiety Screening [facility] Start: 02-14-1964 Depression Screening Depression Screening [facility] Start: 02-14-1964 HEPATITIS C SCREENING HEPATITIS C SCREENING [facility] Start: 02-14-1964 Hepatitis C screening Hepatitis C Screening [facility] Dermatopathology exam Dermatopat hology exam Pathology and Cytology Timed Neoplasm of unspecified behavior of bone, soft tissue, and skin Release Upon Ordering for 1 Occurrences starting 08/28/2023 [facility] Work Phone: Comment on above: Release Upon Ordering for 1 Occurrences starting 08/28/2023 MR Cervical spine WO contrast [facility] US Extremity [facility] Immunizations Immunization Date Immunization Notes Care Provider Iris quinonez 03-26-2024 influenza, high dose seasonal, preservative-free [facility] 03-26-2024 influenza virus vaccine, unspecified formulation Long Boo [employer] Work Phone: [facility] 05-01-2023 influenza virus vaccine, unspecified formulation [facility] 05-01-2023 influenza, high dose seasonal, preservative-free Jamar Fall Other [facility] 04-28-2022 influenza nasal, unspecified formulation Lab[facility] Work Phone: [facility] 04-28-2022 influenza, high-dose , quadrivalent vaccine (FLUZONE HIGH DOSE QUADRIVALENT) [facility] Work Phone: [facility] 04-28-2022 influenza, high dose seasonal, preservative-free Jamar Fall Other [facility] 04-28-2022 influenza virus vaccine, unspecified formulation [facility] Work Phone: [facility] 04-21-2022 COVID-19 booster vaccine, age 12+ yr, bivalent (MODERNA) [facility] Work Phone: [facility] Comment on above: Result Comment: 2023: [id number] 01-21-2022 COVID-19 Vaccine Moderna - Documentation Purposes Only Jamar Fall Other [facility] Comment on above: Result Comment: 2023: [id number] 05-17-2021 COVID-19 Vaccine Moderna - Documentation Purposes Only Jamar Fall Other [facility] Comment on above: Result Comment: 2023: [id number] 04-22-2021 influenza virus vaccine, split virus (incl. purified surface antigen) Jamar Fall Other [facility] 04-22-2021 influenza virus vaccine, unspecified formulation [facility] 04-16-2021 influenza nasal, unspecified formulation Marco A Esqueda MD Work Phone: [facility] 04-16-2021 influenza virus vaccine, unspecified formulation Anthony SCRUGGS [facility] 09-22-2020 COVID-19 Vaccine Moderna - Documentation Purposes Only Jamar Fall Other [facility] 08-26-2020 SARS-CoV-2 (COVID-19 ) Ad26 vaccine, recombinant Anthony SCRUGGS [facility] 08-24-2020 COVID-19 original vaccine, full dose, monovalent (MODERNA) [facility] [place] Work Phone: [facility] 07-17-2020 SARS-CoV-2 (COVID-19 ) mRNA-1273 vaccine Anthony SCRUGGS [facility] Comment on above: Result Comment: pt d oes not know the dates but states that he is fully vaccinated 04-23-2020 influenza virus vaccine, split virus (incl. purified surface antigen) Jamar Fall Other [facility] 04-23-2020 influenza virus vaccine, unspecified formulation [facility] 04-22-2019 influenza virus vaccine, split virus (incl. purified surface antigen) Jamar Juan David Other [facility] 04-22-2019 influenza virus vaccine, unspecified formulation [facility] 04-16-2019 influenza nasal, unspecified formulation Marco A Esqueda MD Work Phone: [facility] 08-20-2018 zoster vaccine recombinant Marco A Esqueda MD Work Phone: [facility] 06-11-2018 zoster vaccine recombinant Marco A Esqueda MD Work Phone: [facility] 04-16-2018 influenza nasal, unspecified formulation Marco A Esqueda MD Work Phone: [facility] 03-27-2018 AS03 adjuvant [facility] Work Phone: [facility] 03-27-2018 influenza nasal, unspecified formulation [facility] [place] Work Phone: [facility] 03-27-2018 influenza virus vaccine, split virus (incl. purified surface antigen) Jamar Fall Other [employer] Other 03-27-2018 influenza virus vaccine, unspecified formulation Anthony SCRUGGS [facility] 03-27-2018 Seasonal trivalent influenza vaccine, adjuvanted, preservative free Marco A Esqueda MD Work Phone: [facility] 06-12-2017 pneumococcal polysaccharide vaccine, 23 valent Marco A Esqueda MD Work Phone: [facility] 06-01-2017 pneumococcal polysaccharide vaccine, 23 valent Jamar Fall Other [facility] 06-01-2017 Prevnar 20 Jamar Fall Other [facility] 05-31-2017 influenza nasal, unspecified formulation [facility] [place] Work Phone: [facility] 05-31-2017 influenza virus vaccine, unspecified formulation Anthony SCRUGGS [facility] 05-31-2017 influenza, injectabl e, quadrivalent, preservative free Marco A Esqueda MD Work Phone: [facility] 04-03-2017 influenza nasal, unspecified formulation [facility] [place] Work Phone: [facility] 04-03-2017 influenza virus vaccine, split virus (incl. purified surface antigen) Jamar Fall Other [employer] Other 04-03-2017 influenza virus vaccine, unspecified formulation Anthony SCRUGGS [facility] 04-03-2017 influenza, high dose seasonal, preservative-free Marco A Esqueda MD Work Phone: [facility] 03-23-2017 influenza nasal, unspecified formulation Marco A Esqueda MD Work Phone: [facility] 04-01-2016 influenza virus vaccine, split virus (incl. purified surface antigen) Jamar Fall Other [facility] 04-01-2016 influenza virus vaccine, unspecified formulation [facility] 03-31-2016 influenza nasal, unspecified formulation Marco A Esqueda MD Work Phone: [facility] 05-11-2015 influenza nasal, unspecified formulation Marco A Esqueda MD Work Phone: [facility] 05-11-2015 influenza, seasonal, injectable, preservative free [facility] [place] Work Phone: [facility] 05-11-2015 pneumococcal conjuga te vaccine, 13 valent Marco A Esqueda MD Work Phone: [facility] 04-29-2015 pneumococcal polysaccharide vaccine, 23 valent Marco A Esqueda MD Work Phone: [facility] 06-09-2014 influenza nasal, unspecified formulation [facility] [place] Work Phone: [facility] 06-09-2014 influenza, seasonal, injectable, preservative free Marco A Esqueda MD Work Phone: [facility] 06-19-2013 diphtheria, tetanus toxoids and acellular pertussis vaccine, unspecified formulation Marco A Esqueda MD Work Phone: [facility] 06-19-2013 tetanus and diphther ia toxoids, not adsorbed, for adult use Marco A Esqueda MD Work Phone: [facility] 05-23-2013 influenza nasal, unspecified formulation Marco A Esqueda MD Work Phone: [facility] 04-24-2013 tetanus and diphther ia toxoids, adsorbed, preservative free, for adult use (5 Lf of tetanus toxoid and 2 Lf of diphtheria toxoid) Jamar Fall Other [facility] 06-27-2012 zoster vaccine, live Marco A lake MD Work Phone: [facility] 06-11-2012 influenza nasal, unspecified formulation Marco A Esqueda MD Work Phone: [facility] 06-02-2011 influenza nasal, unspecified formulation Marco A Esqueda MD Work Phone: [facility] 06-23-2010 pneumococcal polysaccharide vaccine, 23 valent Jamar Fall Other [facility] 06-07-2010 pneumococcal polysaccharide vaccine, 23 valent Marco A Esqueda MD Work Phone: [facility] 06-07-2010 pneumococcal vaccine , unspecified formulation Marco A Esqueda MD Work Phone: [facility] 05-28-2010 influenza nasal, unspecified formulation Marco A Esqueda MD Work Phone: [facility] 01-14-2010 pneumococcal polysaccharide vaccine, 23 valent Jamar Fall Other [facility] 05-25-2009 influenza nasal, unspecified formulation Marco A Esqueda MD Work Phone: [facility] 06-09-2008 influenza nasal, unspecified formulation Marco A Esqueda MD Work Phone: [facility] 07-23-2003 influenza virus vaccine, whole virus Marco A Esqueda MD Work Phone: [facility] 01-14-2003 diphtheria, tetanus toxoids and acellular pertussis vaccine, unspecified formulation Jamar Fall Other [facility] 01-10-2003 TD(adult) unspecifie d formulation Marco A Esqueda MD Work Phone: [facility] 07-03-2002 influenza nasal, unspecified formulation Marco A Esqudea MD Work Phone: [facility] Payers Date Payer Category Payer Private Health Insurance [id number] 2019 Unknown MMO MMO MEDICARE SUPPLEMENT [id number] 2019-Present [phone] [address] [place] [address] Indemnity [id number] 2019 Unknown [id number]. [id number] 2011 Medicare MEDICARE MEDICAR E A AND B [id number] 2011-Present [phone] [place] [address] Medicare [id number] 2011 Medicare [id number]. [id number] 1959 Medicare [id number] 1959 Self-pay 1959 Unknown [id number] 2.16.840.1.742398.19 1946 Unknown [id number] 2.16.840.1.368448.3.579.2. 593 1946 Unknown [id number] 2.16.840.1.643192.3.579.2. 593 1946 Unknown [id number] 2.16.840.1.743010.3.579.2. 593 1946 Unknown [id number] 2.16.840.1.594526.3.579.2. 593 1946 Unknown [id number] 2.16.840.1.318448.3.579.2. 593 1946 Unknown [id number] 2.16.840.1.131305.3.579.2. 1259 1946 Unknown [id number] 2.16.840.1.951306.3.579.2. 1259 1946 Unknown [id number] 2.16.840.1.771103.3.579.2. 1259 1946 Unknown [id number] 2.16.840.1.902690.3.579.2. 1259 1946 Unknown [id number] 2.16.840.1.263930.3.579.2. 1259 1946 Unknown [id number] 2.16.840.1.259283.3.579.2. 727 1946 Unknown [id number] 2.16.840.1.998822.3.579.2. 727 1946 Unknown [id number] 2.16.840.1.218448.3.579.2. 727 1946 Unknown [id number] 2.16.840.1.110770.3.579.2. 727 1946 Unknown [id number] 2.16.840.1.007017.3.579.2. 196 1946 Unknown [id number] 2.16.840.1.680751.3.579.2. 196 Unknown [id number] 2.16.840.1.058074.3.579.2. 593 Unknown [id number] 2.16.840.1.585685.3.579.2. 593 Unknown [id number] 2.16.840.1.320455.3.579.2. 593 Social History Date Type Detail Facility Start: 11-08-2021 End: 06-04-2023 Tobacco smoking status PRIS Never smoked tobacco [facility] Start: 10-25-2021 End: 02-25-2025 Alcohol intake Current drinker of alcohol (finding) [facility] Start: 08-19-2014 History SDOH Alcohol Comment 1 day/wk [facility] Start: 1945 Sex Assigned At Not on file C [facility] Start: 10-18-2021 End: 05-12-2022 Exposure to SARS-CoV-2 (event) Not sure [facility] Tobacco smoking status Never [facility] Start: 02-02-2023 End: 02-26-2024 Sex Assigned At Male [facility] Start: 1945 Sex Assigned At Male [facility] Start: 01-12-2018 End: 06-04-2023 Tobacco use and exposure Smokeless tobacco non-user [facility] Start: 02-02-2023 End: 02-26-2024 History of Social function [facility] Start: 02-11-2022 Gender identity Identifies as male gender (finding) [facility] Start: 02-11-2022 Sexual orientation Heterosexual (fin ding) [facility] How often to you hav e a [...] 09-06-2023 Tobacco smoking status NHIS Ex-smoker (finding) [facility] Start: 09-02-2024 Sex Male (finding) [facility] NEGATED: Highlighted rowStart: ARPITA History of tobacco use Passive smoker [facility] Medical Equipment Procedure Code Equipment Code Equipment Origin al Text Equipment Identifier Dates Start: 10-26-2021 End: 05-12-2022 Comment on above: 1 Each once daily. T o test blood sugars 1 Each once daily. T o test blood sugar Blood Sugar Diagnostic (Contour Next Test Strips) strip Start: 10-10-2023 Lancets (Lancets,Thin) [facility] Start: 09-08-2023 Blood Sugar Diagnostic (Contour Next Test Strips) strip Start: 09-08-2023 End: 10-10-2023 Blood Sugar Diagnostic (Contour Next Test Strips) strip Start: 10-10-2023 Lancets (Lancets,Thin) [facility] Start: 09-08-2023 Blood Sugar Diagnostic (Contour Next Test Strips) strip Start: 09-08-2023 End: 10-10-2023 Blood Sugar Diagnostic (Contour Next Test Strips) strip Start: 10-10-2023 [facility] Start: 09-08-2023 Blood Sugar Diagnostic (Contour Next Test Strips) strip Start: 09-08-2023 End: 10-10-2023 Functional Status Date Assessment Result Facility 04-19-2024 Functional Status N/A [facility] 10-20-2023 Functional Status N/A [facility] 04-17-2023 Functional Status N/A [facility] 05-13-2022 Functional Status N/A [facility] 08-19-2014 Are you deaf, or do you have serious difficulty hearing No 08/19/2014 10:35 AM Santiago Mills LPN No [facility] 08-19-2014 Are you blind, or do you have serious difficulty seeing, even when wearing glasses Yes 08/19/2014 10:35 AM Santiago Mills LPN Yes [facility] 08-19-2014 Do you have serious difficulty walking or climbing stairs No 08/19/2014 10:35 AM Santiago Mills LPN No [facility] 08-19-2014 Do you have difficul ty dressing or bathing No 08/19/2014 10:35 AM Santiago Mills LPN No [facility] 08-19-2014 Because of a physica l, mental, or emotional condition, do you have difficulty doing errands alone such as visiting a physician's office or shopping No 08/19/2014 10:35 AM Santiago Mills LPN No [facility] Mental Status Date Assessment Result Facility 08-19-2014 Because of a physica l, mental, or emotional condition, do you have serious difficulty concentrating, remembering, or making decisions No 08/19/2014 10:35 AM Santiago Mills LPN No [facility] Clinical Notes 07-17-2014 to 02-25-2025 Long Boo APRN-ALEX[facility] - 02/25/2025 10:20 AM Christo Grissom APRN.[facility] - 08/07/2024 10:42 AM ESTTelefrancis Collins - Josemanuel Ortiz - 07/25/2024 8:23 AM EST Note Date & Type Note Facility 02-25-2025 History of Present illness Narrative Skin Check Location: Patient requests a full [...] Left Posterior Neck, Left Preauricular Area, Left Judaism, Left Temporal Scalp, Right Forehead, Right Parotid Area, Right Superior Carter (2) Erythematous scaly papules Patient was counseled [...] limited to risks of scarring, darker or 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 Dispense 30 day supply but only use for 14 days. 4. LENTIGINES Generalized Scattered johnson macules in sun-exposed areas. The patient was informed that lentigines are benign pigmented lesions that occur on sun-exposed and sun-damaged skin. No treatment is necessary. Recommended regular [...] (SQUAMOUS CELL CARCINOMA) OF SKIN Right Mid Carter No evidence of recurrence at SCC scar. [...] year, skin check documented in this encounter [facility] 02-20-2025 Note HNO ID: [id number] Author: SAUL TRACEY MD Service: ? Author Type: Physician Type: Progress Notes Filed: 02/20/2025 10:48 Note Text: NAME: Elvira Pablo CLINIC NO.: [id number] DATE OF SERVICE: February 20, 2025 (Denice) Some elements in this clinic note that are critical to medical decision making have been carefully reviewed and included from a prior clinic note dated: 11/07/2024 (Dheeraj) Referring Provider: RADHA Additional Clinicians involved in Pablo Felix's care: Dr. Jamar Fall, Dr. Anthony Scruggs, Dr. Khan, [facility] Cardiology DIAGNOSIS: Metastatic prostate cancer CASE [...] continue Lupron every [address] Scruggs, next injection due 03/31/2025. For bone metastasis he will continue with Xgeva every 3 months. Injection today. Return in 3 months for follow-up. If the patient's PSA continues to increase will consider staging with a PSMA PET scan. If significant disease progression will then discuss options for alternative therapy. 2. 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 Stable on current medications. Continue per [...] 160 mg daily Continue Lupron with Dr. Scruggs as previously scheduled. AI Assisted A/P: 1. [...] daily. - Continue Lupron therapy with Dr. Scruggs. - Monitor PSA levels; if PSA reaches [...] with potential for dosage adjustment by Dr. Fall. - Continue current diabetic management. - Follow-up with Dr. Fall for potential medication adjustment. 3. Anemia, unspecified type (D64.9) Chronic mild anemia noted; renal function is normal. Anemia may be related to chronic conditions such as diabetes. - Investigate further during next lab visit. 4. 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 - Continue current (more content not included)... [facility] 11-06-2024 Note HNO ID: [id number] Author: MARCO A ESQUEDA MD Service: ? Author Type: Physician Type: Progress Notes Filed: 11/07/2024 14:08 Note Text: PATIENT NAME: Pablo Felix DATE: 11/07/2024 PRIMARY CARE PHYSICIAN: Dr. Jamar Fall OTHER PHYSICIANS: Dr. Anthony Scruggs, Dr. Khan, [facility] Cardiology Portions of this encounter note [...] mg 24 hr tablet Take by mouth. 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 [...] 10/25/2021 2.64 12/15 (more content not included)... [facility] 10-07-2024 Note Patient Education Oncology Hormone [...] cancer. Where to find more information ??? [place] [employer]: www.cancer.org ??? National Cancer [place]: www.cancer.gov Contact a health care provider if: [...] confused. ??? You (more content not included)... [facility] 08-07-2024 Note HNO ID: [id number] Author: CHRISTO HOWARD APRN.BRAKE LINING MAKER Service: ? Author Type: Nurse Practitioner Type: Progress Notes Filed: 08/08/2024 12:09 Note Text: PATIENT NAME: Pablo Felix DATE: 08/08/2024 PRIMARY CARE PHYSICIAN: Dr. Jamar Fall OTHER PHYSICIANS: Dr. Anthony Scruggs, Dr. Khan, [facility] Cardiology Portions of this encounter note [...] mg 24 hr tablet Take by mouth. 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 [...] 1.58 10/25/2021 2.6 (more content not included)... [facility] 08-07-2024 History of Present illness Narrative PATIENT NAME: Pablo Felix DATE: 08/08/2024 PRIMARY CARE PHYSICIAN: Dr. Jamar Fall OTHER PHYSICIANS: Dr. Anthony Scruggs, Dr. Khan, [facility] Cardiology Portions of this encounter note [...] mg 24 hr tablet Take by mouth. 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 [...] 08/01/2024 0.19 RADIOLOGY/OTHER STUDIES: 11/05/2021 CT chest/abdomen/pelvis ([facility]) Several sclerotic lesions consistent with metastatic disease. No evidence of visceral organ involvement or lymphadenopathy. 11/05/2021 Bone scan ([facility]) Multifocal osseous metastasis including the left femur at the lesser trochanter, right pubis symphysis, multiple ribs bilaterally. 01/22/2018 Nuclear bone scan ([facility]) New focal increased activity left frontal bone, left T8 vertebral body. 01/22/2018 MRI pelvis ([facility]) 4.5 cm area of T2 signal in the prostate bed. 07/24/2014 CT abdomen/pelvis ([facility]) Diffuse prostatic enlargement with indentation of the [...] consistent with stage IIIC (pT2b, N0, M0), [place] 5+4 equal 9. Postop the patient's PSA [...] 414.01, ICD10: I25.10 Status post CABG 08/17/2014 ([facility]). Stable on current medications. Continue per [...] which included preparing to see the patient, xhqf-mi-ljop patient care, completing clinical documentation, obtaining and/or reviewing separately obtained history, performing a medically appropriate examination, counseling and educating the patient/family/caregiver, ordering medications, tests, or procedures, independently interpreting results (not separately reported), and communicating results to the patient/family/caregiver. documented in this encounter [facility] 07-25-2024 Telephone encounter Note Patient on lab schedule 08/01/24 for lab only prior to RV. Please review and place needed order. Thank you, Gabi Ortiz MLT [facility] 07-25-2024 Miscellaneous Notes Patient on lab schedule 08/01/24 for lab only prior to RV. Please review and place needed order. Thank you, Gabi Ortiz MLT documented in this encounter [facility] 06-10-2024 Evaluation note Diagnosis Onset Date Resolution [...] diabetes mellitus with hyperglycemia acute August 9:28am [facility] Work Phone: [phone]) 258-779910-23-2024 Telephone encounter Note* Telephone Encounter - Aida Luo RPh - 05/08/2024 8:53 AM EDT This prescription confirms Pablo' re-enrollment in the Xtandi free drug program for 2024. Thank you Josh Luo PharmD, IDALIA [facility] Work Phone: [phone] 126-541410-23-2024 Miscellaneous Notes* Telephone Encounter - Aida Luo RPh - 05/08/2024 8:53 AM EDT This prescription confirms Pablo' re-enrollment in the Xtandi free drug program for 2024. Thank you Josh Luo PharmD, IDALIA [facility] NoteHNO ID: [id number] Author: MARCO A ESQUEDA MD Service: ? Author Type: Physician Type: Progress Notes Filed: 05/10/2024 07:40 Note Text: PATIENT NAME: Pablo Felix DATE: 05/09/2024 PRIMARY CARE PHYSICIAN: Dr. Jamar Fall OTHER PHYSICIANS: Dr. Anthony Scruggs, Dr. Khan, [facility] Cardiology Portions of this encounter note [...] mg 24 hr tablet Take by mouth. 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 [...] 08/11/2022 0.11 10/25/2022 0.1 (more content not included)...[facility]10-23-20[facility] History of Present illness Narrative* Marco A Esqueda MD - 05/08/2024 8:13 AM EDT PATIENT NAME: Pablo Felix DATE: 05/09/2024 PRIMARY CARE PHYSICIAN: Dr. Jamar Fall OTHER PHYSICIANS: Dr. Anthony Scruggs, Dr. Khan, [facility] Cardiology Portions of this encounter note [...] mg 24 hr tablet Take by mouth. 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 [...] CT chest/abdomen/pelvis ([facility]) Several sclerotic lesions consistent with metastatic disease. No evidence of visceral organ involvement or lymphadenopathy. 11/05/2021 Bone scan ([facility]) Multifocal osseous metastasis including the left femur at the lesser trochanter, right pubis symphysis, multiple ribs bilaterally. 01/22/2018 Nuclear bone scan ([facility]) New focal increased activity left frontal bone, left T8 vertebral body. 01/22/2018 MRI pelvis ([facility]) 4.5 cm area of T2 signal in the prostate bed. 07/24/2014 CT abdomen/pelvis ([facility]) Diffuse prostatic enlargement with indentation of the bladder base. Incidental 2.5 x 1 cm exophytic hypodense lesion adjacent to the pancreatic body. ASSESSMENT/PLAN: 1. Metastatic prostate cancer (HCC) - ICD9: 185, ICD10: C61 (primary diagnosis) The patient was diagnosed with early-stage high-grade prostate cancer in June 2014 (TRUS xzslrh1107/02/2014). He underwent a radical prostatectomy on 11/05/2014. [...] 414.01, ICD10: I25.10 Status post CABG 08/17/2014 ([facility]). Stable on current medications. Continue per [...] CC: Dr. Anthony Scruggs [facility] Hospital Discharge instructions Patient Education 04/19/2024 08:45:03 [...] under a microscope. This is called the [place] score and the total score can range [...] stress of having cancer. General instructions Take kian-ayc-bsqoola and prescription medicines only as told by your health care provider. If you have to go to the hospital, notify your cancer specialist (oncologist). Keep all follow-up visits. This is important. Where to find more information [place] [employer]: www.cancer.org [place] [employer] Clinical Oncology: www.cancer.net National Cancer [place]: www.cancer.gov Contact a health care provider if: [...] provider. Document Revised: 09/29/2021 Document Reviewed: 09/29/2021 [employer] Patient Education 2023 [employer]. Follow Up Care 10/20/2023 09:58:12 With:KAEL JAMES, Anthony Lee, URL Address: [address] [place] [address]- When: Unknown [facility]24 NotePatient Education Oncology Prostate Cancer The [...] as BRCA1 and BRCA2. ? You have [place] syndrome. men and men of descent are [...] to normal prostate cells (moderately differentiated). ? [place] 8, 9, or 10: This indicates that [...] implanted intothe prostate gla (more content not included)...[facility]09-16-2024 Telephone encounter Note* Telephone Encounter - Aida Luo RPh - 04/01/2024 3:59 PM EDT Recd phone call from [facility] that they are unable to obtain the Xtandi 80mg tablets a thistime and requested a script for the 40 mg dosing. Order pending Josh Luo PharmD, IDALIA [facility] Work Phone: [phone] 442-667409-16-2024 Miscellaneous Notes* Telephone Encounter - Aida Luo RPh - 04/01/2024 3:59 PM EDT Recd phone call from [facility] that they are unable to obtain the Xtandi 80mg tablets a thistime and requested a script for the 40 mg dosing. Order pending Josh Luo PharmD, BCOP documented in this encounter[facility]-13-2024 NoteCoronary artery disease is stable, no concerning symptoms currently overall is doing well he is planning bilateral carpal tunnel surgery soon with Dr. Charlton. Continue GDMT-continue aspirin, Lipitor, metoprolol, and lisinopril continue risk factor modifications- heart healthy diet, regular exercise as tolerated and continue all medications.[facility] 03-29-2024 NoteHypertension is well-controlled at 127/51 Continue lisinopril/hydrochlorothiazide and metoprolol. Renal function normalUnC[facility]09-13-2024 NoteLipid abnormalities are stable continue Lipitor 40 mg daily lipid profile is well-controlled and liver function is normalUnCleveland Clinic [facility] 03-29-2024 NoteReviewed echocardiogram from July 08 moderate aortic stenosis noted and reviewed echo with patient and his No concerning symptoms at this time patient would like symptoms including palpitations, lightheaded dizziness, syncope, chest pain, worsening shortness of breath and he voiced understanding Monitor with echocardiogramUnCleveland Clinic [facility]09-13-2024 Note RCRI=1 points Class II Risk 6.0 % 30-day risk of , [place], or cardiac arrest From a cardiac perspective pt may proceed with carpal tunnel surgery, he is a moderate risk for a low risk surgery. She may hold aspirin 5-7 days prior and resume post op. Please monitor hemodynamics carefully and prevent any major fluid shifts.[facility]09-13-2024 NotePt is here for surgery clearance. Pt denies chest pain, sob, palpatations Review of Systems Musculoskeletal: Positive for arthritis, back pain, joint pain and myalgias. All other systems reviewed and are negative.[facility] 03-29-2024 NoteUTP CARDIOLOGY PROGRESS NOTE HPI: [...] AV stenosis and regur (more content not included)...[facility]07-19-2024 Instructions* Patient Instructions* Lynne Rajan APRN.CNP [...] troubles swallowing, increasing confusion documented in this encounterAdena Health System07-19-2024 History of Present illness Narrative* Lynne Rajan APRN.CNP - 02/02/2024 11:30 AM EDT PATIENT NAME: Pablo Felix DATE: February 02, 2024 PRIMARY CARE PHYSICIAN: Dr. Jamar Fall OTHER PHYSICIANS: Dr. Anthony Scruggs, Dr. Khan, [facility] Cardiology This note was copied from [...] mg 24 hr tablet Take by mouth. 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 [...] CT chest/abdomen/pelvis ([facility]) Several sclerotic lesions consistent with metastatic disease. No evidence of visceral organ involvement or lymphadenopathy. 11/05/2021 Bone scan ([facility]) Multifocal osseous metastasis including the left femur at the lesser trochanter, right pubis symphysis, multiple ribs bilaterally. 01/22/2018 Nuclear bone scan ([facility]) New focal increased activity left frontal bone, left T8 vertebral body. 01/22/2018 MRI pelvis ([facility]) 4.5 cm area of T2 signal in the prostate bed. 07/24/2014 CT abdomen/pelvis ([facility] Diffuse prostatic enlargement with indentation of the bladder base. Incidental 2.5 x 1 cm exophytic hypodense lesion adjacent to the pancreatic body. ASSESSMENT/PLAN: 1. Metastatic prostate cancer (HCC) - ICD9: 185, ICD10: C61 (primary diagnosis) The patient was diagnosed with early-stage high-grade prostate cancer in June 2014 (TRUS [id number]/02/2014). He underwent a radical prostatectomy on 11/05/2014. [...] obtained at [facility] 11/05/2021 revealed multiple bone metastases. 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 Stable on current medications. Continue per [...] and Dr. Esqueda follow up. Lynne Rajan APRN.BRAKE LINING MAKER Hematology/Oncology [facility] [phone] CC: Dr. Anthony Scruggs documented in this encounterAdena Health System04-18-2024 History of Present illness Narrative* Christo Howard APRN.ALEXA - 11/02/2023 9:28 AM EDT PATIENT NAME: Pablo Felix DATE: 11/02/2023 PRIMARY CARE PHYSICIAN: Dr. Jamar Fall OTHER PHYSICIANS: Dr. Anthony Scruggs, Dr. Khan, [facility] Cardiology Portions of this encounter note [...] mg 24 hr tablet Take by mouth. 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 [...] CT chest/abdomen/pelvis ([facility]) Several sclerotic lesions consistent with metastatic disease. No evidence of visceral organ involvement or lymphadenopathy. 11/05/2021 Bone scan ([facility]) Multifocal osseous metastasis including the left femur at the lesser trochanter, right pubis symphysis, multiple ribs bilaterally. 01/22/2018 Nuclear bone scan ([facility]) New focal increased activity left frontal bone, left T8 vertebral body. 01/22/2018 MRI pelvis ([facility]) 4.5 cm area of T2 signal in the prostate bed. 07/24/2014 CT abdomen/pelvis ([facility] Diffuse prostatic enlargement with indentation of the bladder base. Incidental 2.5 x 1 cm exophytic hypodense lesion adjacent to the pancreatic body. ASSESSMENT/PLAN: 1. Metastatic prostate cancer (HCC) - ICD9: 185, ICD10: C61 (primary diagnosis) The patient was diagnosed with early-stage high-grade prostate cancer in June 2014 (TRUS [id number]/02/2014). He underwent a radical prostatectomy on 11/05/2014. [...] obtained at [facility] 11/05/2021 revealed multiple bone metastases. 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 Stable on current medications. Continue per [...] would reconsider referral to GI. Christo Howard APRN.BRAKE LINING MAKER CC: Dr. Anthony Scruggs I spent a total of 30 minutes on the date of the service which included preparing to see the patient, rmjb-oa-psjh patient care, completing clinical documentation, obtaining and/or reviewing separately obtained history, performing a medically appropriate examination, counseling and educating the pat ient/family/caregiver, ordering medications, tests, or procedures, independently interpreting results (not separately reported), and communicating results to the patient/family/caregiver. documented in this encounterAdena Health System04-05-2024 Hospital Discharge instructions Patient Education 10/20/2023 09:54:58 [...] under a microscope. This is called the [place] score and the total score can range [...] similar to normal prostate cells (moderately differentiated). [place] 8, 9, or 10: This indicates that [...] stress of having cancer. General instructions Take omms-swx-hxksynh and prescription medicines only as told by your health care provider. If you have to go to the hospital, notify your cancer specialist (oncologist). Keep all follow-up visits. This is important. Where to find more information [place] [employer]: www.cancer.org [place] [employer] Clinical Oncology: www.cancer.net National Cancer [place]: www.cancer.gov Contact a health care provider if: [...] provider. Document Revised: 09/29/2021 Document Reviewed: 09/29/2021 [employer] Patient Education 2022 [employer]. Follow Up Care 04/17/2023 09:25:02 With:KAEL JAMES, Anthony Lee, URL Address: [address] [place] [address] When: Unknown [facility] 02-12-2024 History of Present illness Narrative* Long Boo, CROWD CONTROLLER-BRAKE LINING MAKER - 08/28/2023 11:25 AM EST Images from [...] limited to risks of scarring, darker or vacuum cooker operator pigmentary changes, recurrence, incomplete removal and [...] results, 6 months documented in this encounterCox [id number] Evaluation note* Encounter Date Diagnosis Assessment Notes [...] use, the patient reduces the risk for OH, CVA, HTN, cardiac dysrhythmias and sudden cardiac [...] retention cyst and frontal sinus mass benign 1[employer] Other 01-19-2024 Evaluation note* Encounter Date Diagnosis Assessment Notes Treatment Notes Treatment Clinical Notes Jul, Pancreatic mass (ICD-10 - K86.89) MRCP: 4cm mass - 2022 - previously completed EUS bx at [facility] - stable in size from 2021 1[employer] Other [facility] Chief Complaint: Patient [...] problems arise Bridger Mulligan MD, MPH, FACC, [facility], [facility] Interventional Cardiology Pager Email: [email or web address]11-14-2023 Evaluation note* Encounter Date Diagnosis Assessment [...] ENT since scheduling appt for sinus mass 1[employer] Other 10-16-2023 Evaluation note* Encounter Date Diagnosis [...] malignant neoplasm of bone (ICD-10 - C79.51) [employer] Other 10-12-2023 History of Present illness Narrative* Christo Howard, ROCHELLE.BRAKE LINING MAKER - 04/27/2023 10:00 AM EDT PATIENT NAME: Pablo Felix DATE: 04/27/2023 PRIMARY CARE PHYSICIAN: Dr. Jamar Fall OTHER PHYSICIANS: Dr. Anthony Scruggs, Dr. Khan, [facility] Cardiology Portions of this encounter note [...] mg 24 hr tablet Take by mouth. Vdzmmqtronstz-Donveutu-Myuydf (MULTIVITAMIN 50 PLUS) tab Take 1 tablet [...] pelvic lymphadenectomy ([facility]) Poorly differentiated prostatic adenocarcinoma of left prostate. [...] CT chest/abdomen/pelvis ([facility]) Several sclerotic lesions consistent with metastatic disease. No evidence of visceral organ involvement or lymphadenopathy. 11/05/2021 Bone scan ([facility]) Multifocal osseous metastasis including the left femur at the lesser trochanter, right pubis symphysis, multiple ribs bilaterally. 01/22/2018 Nuclear bone scan ([facility]) New focal increased activity left frontal bone, left T8 vertebral body. 01/22/2018 MRI pelvis ([facility]) 4.5 cm area of T2 signal in the prostate bed. 07/24/2014 CT abdomen/pelvis ([facility]) Diffuse prostatic enlargement with indentation of the bladder base. Incidental 2.5 x 1 cm exophytic hypodense lesion adjacent to the pancreatic body. ASSESSMENT/PLAN: 1. Metastatic prostate cancer (HCC) - ICD9: 185, ICD10: C61 (primary diagnosis) The patient was diagnosed with early-stage high-grade prostate cancer in June 2014 (TRUS [id number]/02/2014). He underwent a radical prostatectomy on 11/05/2014. Pathology consistent with stage IIIC (pT2b, N0, M0), [place] 5+4 equal 9. Postop the patient's PSA [...] obtained at [facility] 11/05/2021 revealed multiple bone metastases. 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 Stable on current medications. Continue per [...] which included preparing to see the patient, uiiu-ii-utws patient care, completing clinical documentation, obtaining and/or reviewing separately obtained history, performing a medically appropriate examination, counseling and educating the pat ient/family/caregiver, ordering medications, tests, or procedures, independently interpreting results (not separately reported), and communicating results to the patient/family/caregiver. documented in this encounterAdena Health System10-03-2023 Evaluation note* Encounter Date Diagnosis Assessment Notes Treatment Notes Treatment Clinical Notes Apr, Pancreatic mass (ICD-10 - K86.89) 1[employer] Other 10-02-2023 Hospital Discharge instructions Patient Education [...] under a microscope. This is called the [place] score and the total score can range from 6 10, indicating how likely it is that the cancer will spread (metastasize) to other parts of the body. The higher the score, the greater thelikelihood that the cancer will spread. [place] 6 or lower: This indicates that the cancer cells look similar to normal prostate cells (well differentiated). Lucrecia 7: This indicates that the cancer cells look somewhat similar to normal prostate cells (moderately differentiated). [place] 8, 9, or 10: This indicates that [...] stress of having cancer. General instructions Take ctmu-acu-ldhcamx and prescription medicines only as told by your health care provider. If you have to go to the hospital, notify your cancer specialist (oncologist). Keep all follow-up visits. This is important. Where to find more information [place] [employer]: www.cancer.org [place] [employer] of Clinical Oncology: www.cancer.net National Cancer [place]: www.cancer.gov Contact a health care provider if: [...] provider. Document Revised: 09/29/2021 Document Reviewed: 09/29/2021 [email or web address] Patient Education 2022 [employer]. Follow Up Care 10/28/2022 08:37:57 With:KAEL JAMES, Anthony Lee, URL Address: [facility] [address] [place] [phone] When: Unknown Comments:6 mos w/ PSA (and possible Lupron) [facility] 09-27-2023 Evaluation note* Encounter Date Diagnosis Assessment Notes Treatment Notes Treatment Clinical Notes Mar, Pancreatic mass (ICD-10 - K86.89) 1[employer] Other 09-20-2023 Evaluation note* Encounter Date Diagnosis Assessment Notes Treatment Notes Treatment Clinical Notes Mar, Right upper quadrant abdominal pain (ICD-10 - R10.11) Diet instructions Lab to r/o acute infection, cholecystitis, pancreatitis GBUS vs CT abd based on results BLand, low fat diet Mar, Nausea (ICD-10 - R11.0) [place] , small/frequent feedings. Pepcid, Prilosec, Tums as [...] Microalbumin, Dilated eye exam and Foot exam 1[employer] Other 08-30-2023 Evaluation note* Encounter Date Diagnosis [...] use, the patient reduces the risk for OH, CVA, HTN, cardiac dysrhythmias and sudden cardiac [...] exercise for 30 minutes, 3-5 times weekly. 1[employer] Other 07-23-2023 Evaluation note* Encounter Date Diagnosis Assessment Notes Treatment Notes Treatment Clinical Notes Jan, Left bundle-branch block, unspecified (ICD-10 - I44.7) 1[employer] Other 07-20-2023 History of Present illness Narrative* Marco A Esqueda MD - 02/02/2023 7:38 AM EDT PATIENT NAME: Pablo Felix DATE: 02/02/2023 PRIMARY CARE PHYSICIAN: Dr. Jamar Fall OTHER PHYSICIANS: Dr. Anthony Scruggs, Dr. Khan, [facility] Cardiology Portions of this encounter note [...] mg 24 hr tablet Take by mouth. 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 [...] CT chest/abdomen/pelvis ([facility]) Several sclerotic lesions consistent with metastatic disease. No evidence of visceral organ involvement or lymphadenopathy. 11/05/2021 Bone scan ([facility]) Multifocal osseous metastasis including the left femur at the lesser trochanter, right pubis symphysis, multiple ribs bilaterally. 01/22/2018 Nuclear bone scan ([facility]) New focal increased activity left frontal bone, left T8 vertebral body. 01/22/2018 MRI pelvis ([facility]) 4.5 cm area of T2 signal in the prostate bed. 07/24/2014 CT abdomen/pelvis ([facility] Diffuse prostatic enlargement with indentation of the bladder base. Incidental 2.5 x 1 cm exophytic hypodense lesion adjacent to the pancreatic body. ASSESSMENT/PLAN: 1. Metastatic prostate cancer (HCC) - ICD9: 185, ICD10: C61 (primary diagnosis) The patient was diagnosed with early-stage high-grade prostate cancer in June 2014 (TRUS [id number]/02/2014). He underwent a radical prostatectomy on 11/05/2014. [...] obtained at [facility] 11/05/2021 revealed multiple bone metastases. 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 Stable on current medications. Continue per [...] CC: Dr. Anthony Scruggs documented in this encounterAdena Health System04-27-2023 History of Present illness Narrative* Christo Howard APRN.BRAKE LINING MAKER - 11/10/2022 10:00 AM EDT PATIENT NAME: Pablo Felix DATE: 11/10/2022 PRIMARY CARE PHYSICIAN: Dr. Jamar Fall OTHER PHYSICIANS: Dr. Anthony Scruggs, Dr. Khan, [facility] Cardiology Portions of this encounter note [...] mg 24 hr tablet Take by mouth. 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 [...] CT chest/abdomen/pelvis ([facility]) Several sclerotic lesions consistent with metastatic disease. No evidence of visceral organ involvement or lymphadenopathy. 11/05/2021 Bone scan ([facility]) Multifocal osseous metastasis including the left femur at the lesser trochanter, right pubis symphysis, multiple ribs bilaterally. 01/22/2018 Nuclear bone scan ([facility]) New focal increased activity left frontal bone, left T8 vertebral body. 01/22/2018 MRI pelvis ([facility]) 4.5 cm area of T2 signal in the prostate bed. 07/24/2014 CT abdomen/pelvis ([facility]) Diffuse prostatic enlargement with indentation of the bladder base. Incidental 2.5 x 1 cm exophytic hypodense lesion adjacent to the pancreatic body. ASSESSMENT/PLAN: 1. Metastatic prostate cancer (HCC) - ICD9: 185, ICD10: C61 (primary diagnosis) The patient was diagnosed with early-stage high-grade prostate cancer in June 2014 (TRUS owyyzq1307/02/2014). He underwent a radical prostatectomy on 11/05/2014. [...] obtained at [facility] 11/05/2021 revealed multiple bone metastases. 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 Stable on current medications. Continue per [...] monitor with repeat CT scan. Christo Howard APRN.BRAKE LINING MAKER CC: Dr. Anthony Scruggs I spent a total of 30 minutes on the date of the service which included preparing to see the patient, hazn-rm-gdrz patient care, completing clinical documentation, obtaining and/or reviewing separately obtained history, performing a medically appropriate examination, counseling and educating the pat ient/family/caregiver, ordering medications, tests, or procedures, independently interpreting results (not separately reported), and communicating results to the patient/family/caregiver. documented in this encounterAdena Health System03-03-2023 Evaluation note* Encounter Date Diagnosis Assessment Notes [...] injection w/ Kenalog, may increase BS slightly 1[employer] Other 02-24-2023 Evaluation note* Encounter Date Diagnosis [...] use, the patient reduces the risk for OH, CVA, HTN, cardiac dysrhythmias and sudden cardiac [...] Lupron along w/ additional oral chemotherapy from [facility] Oncology. Also receiving Boniva Aug, Other [...] reviewed and amended by provider signed below. 1[employer] Other 01-26-2023 History of Present illness Narrative* Marco A Esqueda MD - 08/11/2022 7:42 AM EST PATIENT NAME: Pablo Felix DATE: 08/11/2022 PRIMARY CARE PHYSICIAN: Dr. Jamar Fall OTHER PHYSICIANS: Dr. Anthony Scruggs, Dr. Khan, [facility] Cardiology Portions of this encounter note [...] mg 24 hr tablet Take by mouth. 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 [...] CT chest/abdomen/pelvis ([facility]) Several sclerotic lesions consistent with metastatic disease. No evidence of visceral organ involvement or lymphadenopathy. 11/05/2021 Bone scan ([facility]) Multifocal osseous metastasis including the left femur at the lesser trochanter, right pubis symphysis, multiple ribs bilaterally. 01/22/2018 Nuclear bone scan ([facility]) New focal increased activity left frontal bone, left T8 vertebral body. 01/22/2018 MRI pelvis ([facility]) 4.5 cm area of T2 signal in the prostate bed. 07/24/2014 CT abdomen/pelvis ([facility] Diffuse prostatic enlargement with indentation of the bladder base. Incidental 2.5 x 1 cm exophytic hypodense lesion adjacent to the pancreatic body. ASSESSMENT/PLAN: 1. Metastatic prostate cancer (HCC) - ICD9: 185, ICD10: C61 (primary diagnosis) The patient was diagnosed with early-stage high-grade prostate cancer in June 2014 (TRUS ryprng1807/02/2014). He underwent a radical prostatectomy on 11/05/2014. Pathology consistent with stage IIIC (pT2b, N0, M0), [place] 5+4 equal 9. Postop the patient's PSA [...] obtained at [facility] 11/05/2021 revealed multiple bone metastases. 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 Stable on current medications. Continue per [...] CC: Dr. Anthony Scruggs documented in this encounterAdena Health System01-05-2023 NotePROCEDURE: XR SHOULDER LT 2V or > [...] Electronically authenticated by: CYNTHIA TORRES Date: 2022-07-21 15:46[place]01-05-2023 Evaluation note* Encounter Date Diagnosis Assessment Notes Treatment Notes Treatment Clinical Notes Jul, Cervical spondylosis with radiculopathy (ICD-10 - M47.22) ROM exercises, heat/ice and Tylenol 1000mg tid. Initiated Tramadol w/ caution, no driving, may cause sedation. Jul, Acute pain of left shoulder (ICD-10 - M25.512) ROM exercises, Tylenol and Tramadol as needed. Jul, Annual physical exam (ICD-10 - Z00.00) 1.618 [employer] Other 10-28-2022 Hospital Discharge instructions Patient Education [...] who: Are older than age 65. Are -[place]. Are obese. Have a family history of [...] cells. Follow these instructions at home: Take loxs-lie-ralufcp and prescription medicines only as told by [...] 07/03/2006 Document Revised: 06/15/2018 Document Reviewed: 03/13/2017 [employer] Patient Education Journeys. Follow Up Care 11/08/2021 14:14:20 With:KAEL JAMES, Anthony Lee, URL Address: [address] [place], [place] [id number]- When: Unknown [facility] 10-27-2022 Nurse Note* Sheela Toney - 05/12/2022 10:43 AM EDT AUA=2 documented in this encounterAdena Health System10-27-2022 History of Present illness Narrative* Zach Khan MD - 05/12/2022 10:41 AM EDT Radiation Oncology - Follow Up Note PATIENT NAME: Pablo Felix PATIENT DIAGNOSIS: Prostate adenocarcinoma, initial clinical stage II, initial PSA 1.07, biopsy Lucrecia score 9(4,5), s/p prostatectomy for 11/05/14 pathologic stage IIIC [id number], Lucrecia 9 (5, 4) now with rising [...] Each once daily. To test blood sugar Katkktoyrvfkc-Bjhnnedk-Kppazq (MULTIVITAMIN 50 PLUS) tab Take 1 tablet [...] clinical stage II, initial PSA 1.07, biopsy [place] score 9(4,5), s/p prostatectomy for 4/22/15 pathologic stage IIIC [id number], [place] 9 (5, 4) withrising PSA, subsequently status post pelvic and prostate bed radiation completed March 2018. Patient has had continued PSA progression. He is now on second line antiandrogen's. He continues Lupron. No current role for radiation. Plan to see patient back on an as-needed basis as he has continued follow-up with urology and medical oncology. Signed by: Zahc Khan MD cc: Jamar Fall MD ([facility]) Portions of the above note extracted and edited from previous visit as well as active information included in the EMR. documented in this encounterAdena Health System10-17-2022 Miscellaneous Notes* Telephone Encounter - Sheela Toney - 05/02/2022 10:48 AM EDT Patient coming in on 05/12/22 for follow up with labs. Please add lab orders. Thanks, Sheela Toney MA documented in this encounterAdena Health System08-04-2022 History of Present illness Narrative* Marco A Esqueda MD - 02/17/2022 7:51 AM EDT PATIENT NAME: Pablo Felix DATE: 02/17/2022 PRIMARY CARE PHYSICIAN: Jamar Fall, OTHER PHYSICIANS: Dr. Anthony Scruggs, Dr. Khan, [facility] Cardiology Portions of this encounter note [...] Each once daily. 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 [...] CT chest/abdomen/pelvis ([facility]) Several sclerotic lesions consistent with metastatic disease. No evidence of visceral organ involvement or lymphadenopathy. 11/05/2021 Bone scan ([facility]) Multifocal osseous metastasis including the left femur at the lesser trochanter, right pubis symphysis, multiple ribs bilaterally. 01/22/2018 Nuclear bone scan ([facility]) New focal increased activity left frontal bone, left T8 vertebral body. 01/22/2018 MRI pelvis ([facility]) 4.5 cm area of T2 signal in the prostate bed. 07/24/2014 CT abdomen/pelvis ([facility] Diffuse prostatic enlargement with indentation of the bladder base. Incidental 2.5 x 1 cm exophytic hypodense lesion adjacent to the pancreatic body. ASSESSMENT/PLAN: 1. Metastatic prostate cancer (HCC) - ICD9: 185, ICD10: C61 (primary diagnosis) The patient was diagnosed with early-stage high-grade prostate cancer in June 2014 (TRUS [id number]/02/2014). He underwent a radical prostatectomy on 11/05/2014. Pathology consistent with stage IIIC (pT2b, N0, M0), [place] 5+4 equal 9. Postop the patient's PSA [...] obtained at [facility] on 11/05/2021. Bone scan revealed multiple areas [...] 414.01, ICD10: I25.10 Status post CABG 08/17/2014 ([facility]). Stable on current medications. Continue per [...] CC: Dr. Anthony Scruggs documented in this encounterAdena Health System05-23-2022 Miscellaneous Notes* Telephone Encounter - Clementine Aguilar [...] that he has the phone number to [facility]. No additional questionsnoted. Clementine Aguilar RN documented in this encounterAdena Health System04-28-2022 History of Present illness Narrative* Marco A Esqueda MD - 11/11/2021 7:42 AM EDT PATIENT NAME: Pablo Felix DATE: 11/11/2021 PRIMARY CARE PHYSICIAN: Jamar Fall DO OTHER PHYSICIANS: Dr. Anthony Scruggs, Dr. Khan, [facility] Cardiology Portions of this encounter note [...] scans at [facility] on 11/05/2021. Bone scan revealed multiple areas [...] Each once daily. 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 [...] CT chest/abdomen/pelvis ([facility]) Several sclerotic lesions consistent with metastatic disease. No evidence of visceral organ involvement or lymphadenopathy. 11/05/2021 Bone scan ([facility]) Multifocal osseous metastasis including the left femur at the lesser trochanter, right pubis symphysis, multiple ribs bilaterally. 01/22/2018 Nuclear bone scan ([facility]) New focal increased activity left frontal bone, left T8 vertebral body. 01/22/2018 MRI pelvis ([facility]) 4.5 cm area of T2 signal in the prostate bed. 07/24/2014 CT abdomen/pelvis ([facility]) Diffuse prostatic enlargement with indentation of the bladder base. Incidental 2.5 x 1 cm exophytic hypodense lesion adjacent to the pancreatic body. ASSESSMENT/PLAN: 1. Metastatic prostate cancer (HCC) - ICD9: 185, ICD10: C61 (primary diagnosis) The patient was diagnosed with early-stage high-grade prostate cancer in June 2014 (TRUS opsakk8407/02/2014). He underwent a radical prostatectomy on 11/05/2014. Pathology consistent with stage IIIC (pT2b, N0, M0), [place] 5+4 equal 9. Postop the patient's PSA [...] obtained at [facility] on 11/05/2021. Bone scan revealed multiple areas [...] 414.01, ICD10: I25.10 Status post CABG 08/17/2014 ([facility]). Stable on current medications. Continue per [...] CC: Dr. Anthony Scruggs documented in this encounterAdena Health System04-27-2022 Miscellaneous Notes* Telephone Encounter - Clementine Aguilar RN - 11/10/2021 3:03 PM EDT Pt reports his Enzalutamide was delivered. Will start this evening. Clementine Aguilar RN documented in this encounterAdena Health System04-26-2022 Miscellaneous Notes* Telephone Encounter - Clementine Aguilar RN - 11/09/2021 2:31 PM EDT Per pt, his Enzalutamide is scheduled to arrive tomorrow morning. Patient started/will start taking Enzalutamide on 11/10/21. Clementine Aguilar RN documented in this encounterAdena Health System04-25-2022 Hospital Discharge instructions Patient Education 11/08/2021 14:10:09 [...] who: Are older than age 65. Are -[place]. Are obese. Have a family history of [...] cells. Follow these instructions at home: Take vsdk-rkg-ueffgsc and prescription medicines only as told by [...] 07/03/2006 Document Revised: 06/15/2018 Document Reviewed: 03/13/2017 [employer] Patient Education 2020 [employer] Follow Up Care 08/23/2021 13:26:07 With:KAEL JAMES, Anthony Lee, URL Address: [facility] [address], [place] [address]- [phone] When:05/10/2022 [facility] 04-21-2022 Miscellaneous Notes* Telephone Encounter - Clementine Aguilar RN - 11/04/2021 2:53 PM EDT Pt would like to get the 4th Covid vaccine when it's due. Dr Esqueda notified and gives the ok to proceed when due. Pt notified and verbalizes understanding. Clementine Aguilar RN documented in this encounterAdena Health System04-21-2022 History of Present illness Narrative* Clementine Aguilar [...] Information handout: Enzalutamide, Specialty Pharmacy Information : [facility] phone numbers: Yes [...] minutes Clementine Aguilar RN * Aida Luo, [facility] - 11/04/2021 2:49 PM EDT Images from the original note were not included. [facility] Department of Pharmacy Oncology Pharmacy [...] Each once daily. To test blood sugar Oboixmgmrqyyj-Unwlmjfy-Fkangk (MULTIVITAMIN 50 PLUS) tab Take 1 tablet [...] of chemotherapy NA - Followed up with [facility] for delivery of Free Xtandi [...] time (15 minute increments) with the patient Zuleymaalyssachaka Luo RPh documented in this encounterAdena Health System04-21-2022 Miscellaneous Notes* Telephone Encounter - Aida Luo RPh - 11/04/2021 10:54 AM EDT Confirmed with [employer] approval date 11/01/21 and that the specialty pharmacy, [facility], will reach out to Mr Felix 3-5 business days from approval date. If he does not hear from them by 11/10/21 we should call [facility] @ option 2. I informed Mr Felix of this, he has an appt 11/12/21 and said if he has not heard from them by then he will get their phone number from us. Rubin Luo RPh documented in this encounterAdena Health System04-19-2022 Miscellaneous Notes* Telephone Encounter - Jennifer Garcia [...] him know to be expecting this call. [facility] will call patient to set up delivery for all fills. I do not see where he has had chemo education yet. Alba does he need to be set up with you? Thanks Rubin Luo RP * Telephone Encounter - Andreina Castillo [facility] - 11/01/2021 10:55 AM EDT Patient called today. We completed a conference call with [employer] - they were ableto obtain consent and start his benefits investigations and we should hear back by later today or tomorrow. * Telephone Encounter - Aida Luo [facility] - 10/29/2021 3:38 PM EDT Permission granted by Pablo to pursue free drug on line application. Application submitted and email sent to Mr Felix to complete his portion. The [employer] are out of town for the weekend, but when he returns Monday night he will complete authorization. Rubin Luo RP * Telephone Encounter - Brina Wang RP - 10/28/2021 4:13 PM EDT No available funding at this time. We will proceed free drug application through [employer]. Pharmacy to reach out to patient 10/29/2021 to notify. Brina Wang RPh * Telephone Encounter - Brina Wang RPh - 10/28/2021 3:08 PM EDT Ambulatory Pharmacy Prior Authorization Note Provider Intervention Required?: No- Pharmacy completed on your behalf. Drug: Xtandi Cover My Meds Carter: [id number] Determination: Approved Prior Authorization/Case #: [id number] Prior Authorization Expiration: 10/28/2022 Time to PA Submission in CMM: 15 min Time to PA Determination in CMM: Same day Additional Information: Co-Pay $3,111.12 For questions relating to this submission, please contact [facility] at [phone] documented in this encounterAdena Health System04-19-2022 Miscellaneous Notes* Telephone Encounter - Zohra Avila PA-C - 11/02/2021 12:00 PM EDT CBC and CMP orders placed Zohra Avila PA-C * Telephone Encounter - Katie Rosen MA - 11/02/2021 11:57 AM EDT Patient has an appt on 11/11/21. Would you like labs, if so place orders. Katie Rosen MA documented in this encounterAdena Health System04-18-2022 Miscellaneous Notes* Telephone Encounter - Clementine Aguilar [...] assistance program. Thanks, BRPati documented in this encounterAdena Health System04-14-2022 Miscellaneous Notes* Telephone Encounter - Clementine Aguilar RN - 10/28/2021 1:12 PM EDT Voicemail message received from Sandra @ [facility]. Reports the pt's 1st dose of Lupron was given on 02/12/2018. Dr Esqueda notified. Clementine Aguilar RN * Telephone Encounter - Clementine Aguilar RN - 10/28/2021 12:[address] Esqueda requests that we contact Dr Scruggs' office for pt's Lupron start date. Call placed to [facility]. No answer. Message left requesting call back. Clementine Aguilar RN documented in this encounterAdena Health System04-14-2022 Miscellaneous Notes* Telephone Encounter - Clementine Aguilar RN - 10/28/2021 1:12 PM EDT This encounter was opened in error. [email or web address]@ documented in this encounterAdena Health System04-11-2022 Miscellaneous Notes* Telephone Encounter - Christo Howard APRN.CNP - 10/25/2021 4:05 PM EDT Hold off for now. Christo Howard APRN.CNP * Telephone Encounter - Katie Rosen MA - 10/25/2021 11:01 AM EDT If patient needs labs, please sign/place orders for 10/28/21. Thanks. Katie Rosen MA documented in this encounterAdena Health System01-01-2015 Evaluation note* Diagnosis Onset Date Resolution Status ASHD (arteriosclerotic heart disease) acute Cervical spondylosis acute Essential hypertension acute Hypercholesterolemia acute Malignant neoplasm of prostate July 17, 2014 acute Nonrheumatic aortic valve stenosis acute GRADY (obstructive sleep apnea) acute Type 2 diabetes mellitus with hyperglycemia acute [facility] Work Phone: Evaluation + Plan note Future Appointments Appointment Date:05/13/2022 08:45:00 AM Scheduled Provider:Anthony SCRUGGS MD Location:[facility] Appointment Type:URO Office Visit Diagnostic Tests Pending * PSA Total 11/08/21 Future Scheduled Tests Laboratory* Basic Metabolic Panel 09/20/21 [facility] evaluation + Plan note Future Appointments Appointment Date:10/28/2022 08:00:00 AM Scheduled Provider:Anthony SCRUGGS MD Location:[facility] Appointment Type:URO Office Visit Diagnostic Tests Pending * PSA Total 09/14/22 Future Scheduled Tests Laboratory* Basic Metabolic Panel 09/20/21 [facility] evaluation + Plan note Future Appointments Appointment Date:10/20/2023 08:45:00 AM Scheduled Provider:Anthony SCRUGGS MD Location:[facility] Appointment Type:URO Office Visit Diagnostic Tests Pending * PSA Total 04/17/23 [facility] evaluation + Plan note Future Appointments Appointment Date:04/19/2024 08:00:00 AM Scheduled Provider:Anthony SCRUGGS MD Location:[facility] Appointment Type:URO Office Visit Diagnostic Tests Pending * PSA Total 02/15/24 [facility] evaluation + Plan note Future Appointments Appointment Date:10/07/2024 09:15:00 AM Scheduled Provider:Anthony SCRUGGS MD Location:[facility] Appointment Type:URO Office Visit Diagnostic Tests Pending * PSA Total 08/17/24 [facility] [...] and bone marrow Coronary artery disease involving [place] heart without angina pectoris, unspecified vessel or lesion type Essential hypertension Unspecified essential hypertension Type 2 diabetes mellitus without complication, without long-term current use of insulin (HCC) documented [facility] this encounter [facility]No [facility] [place] Other Evaluation note* Diagnosis Malignant neoplasm of prostate (HCC)- Primary Malignant neoplasm of prostate Coronary artery disease involving [place] heart without angina pectoris, unspecified vessel or lesion type Essential hypertension Unspecified essential hypertension Type 2 diabetes mellitus without complication, without long-term current use of insulin (HCC) documented in this encounter [facility]* Diagnosis Malignant neoplasm of prostate (HCC)- Primary Malignant neoplasm of prostate documented in this encounter [facility]* Diagnosis Malignant neoplasm of prostate (HCC)- Primary Malignant neoplasm of prostate documented in this encounter [facility]* Diagnosis Malignant neoplasm of prostate (HCC)- Primary Malignant neoplasm of prostate Coronary artery disease involving [place] heart without angina pectoris, unspecified vessel or lesion type Essential hypertension Unspecified essential hypertension Type 2 diabetes mellitus without complication, without long-term current use of insulin (HCC) documented in this encounter [facility]* Diagnosis Neoplasm of unspecified behavior of bone, soft tissue, and skin Actinic keratosis documented in this encounter [facility] [place] note* Diagnosis Malignant neoplasm of prostate (HCC)- Primary Malignant neoplasm of prostate documented in this encounter [facility]* Diagnosis Malignant neoplasm of prostate (HCC)- Primary Malignant neoplasm of prostate Essential hypertension Unspecified essential hypertension Coronary artery disease involving [place] heart without angina pectoris, unspecified vessel or lesion type Type 2 diabetes mellitus without complication, without long-term current use of insulin (HCC) Lesion of skin of right ear Abdominal discomfort Abdominal pain, unspecified site documented in this encounter [facility]* Diagnosis Onset Date Resolution Status [...] Type 2 diabetes mellitus with hyperglycemia acute [facility] Work Phone: Evaluation note* Diagnosis Malignant neoplasm of prostate (HCC)- Primary Malignant neoplasm of prostate documented in this encounter [facility]* Diagnosis Malignant neoplasm of prostate (HCC)- Primary Malignant neoplasm of prostate documented in this encounter [facility]* Diagnosis Malignant neoplasm of prostate (HCC)- Primary Malignant neoplasm of prostate documented in this encounter [facility]* Diagnosis Malignant neoplasm of prostate (HCC)- Primary Malignant neoplasm of prostate documented in this encounter [facility]* Diagnosis Malignant neoplasm of prostate (HCC)- Primary Malignant neoplasm of prostate Essential hypertension Unspecified essential hypertension Coronary artery disease involving [place] heart without angina pectoris, unspecified vessel or lesion type Type 2 diabetes mellitus without complication, without long-term current use of insulin (HCC) documented in this encounter [facility]* Diagnosis Malignant neoplasm of prostate (HCC)- Primary Malignant neoplasm of prostate documented in this encounter [facility]* Diagnosis Seborrheic keratosis- Primary Melanocytic nevus of trunk Benign neoplasm of skin of trunk, except scrotum Actinic keratosis Lentigines Psoriasis vulgaris Other psoriasis History of SCC (squamous cell carcinoma) of skin Personal history of other malignant neoplasm of skin documented in this encounter [facility] HealthcareHistory general Narrative - Reported* Type Description [...] [place] 08/2015 Hospitalization History see surgical hx 1.618 [employer] Other History general Narrative - Reported* Type [...] [place] 08/2015 Hospitalization History see surgical hx 1.618 [employer] Other Hospital course Narrative No data available [...] To Contact Diagnoses Actinic keratosis [employer], [employer] [address] [place] [address] Referral ID Status Reason Start Date Expiration Date V isits Requested Visits Authorized [id number] Pending Review 1 1 Reason *FU 06/06 Right fr ontal sinus mass and cerumen impaction Diagnosis 1 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) Diagnosis 2 Impacted cerumen of right ear (H61.21) Referral Organization [facility] Referring Provider First Name Jamar Referring Provider Last Name Juan David Referring Provider Specialty Internal Sc dicine Referred Organization [facility] Referred Provider Emelina Louis Referred Address ,[place], [place],[address] Referred Provider Specialty Ear, Nose an d [...] or prosecute any alcohol or drug abuse patient.Adena Health SystemIn the event this information is protected by the Federal Confidentiality of Alcohol and Drug Abuse Patient Records regulations: The Federal rules restrict any use of the information to criminally investigate or prosecute any alcohol or drug abuse patient.Adena Health SystemIn the event this information is protected by the Federal Confidentiality of Alcohol and Drug Abuse Patient Records regulations: The Federal rules restrict any use of the information to criminally investigate or prosecute any alcohol or drug abuse patient.Adena Health SystemIn the event this information is protected by the Federal Confidentiality of Alcohol and Drug Abuse Patient Records regulations: The Federal rules restrict any use of the information to criminally investigate or prosecute any alcohol or drug abuse patient.[facility]a Health SystemIn the event this information is protected by the Federal Confidentiality of Alcohol and Drug Abuse Patient Records regulations: The Federal rules restrict any use of the information to criminally investigate or prosecute any alcohol or drug abuse patient.[facility]a Health SystemIn the event this information is protected by the Federal Confidentiality of Alcohol and Drug Abuse Patient Records regulations: The Federal rules restrict any use of the information to criminally investigate or prosecute any alcohol or drug abuse patient.[facility] Health SystemIn the event this information is protected by the Federal Confidentiality of Alcohol and Drug Abuse Patient Records regulations: The Federal rules restrict any use of the information to criminally investigate or prosecute any alcohol or drug abuse patient.[facility] Health SystemIn the event this information is protected by the Federal Confidentiality of Alcohol and Drug Abuse Patient Records regulations: The Federal rules restrict any use of the information to criminally investigate or prosecute any alcohol or drug abuse patient.[facility] Health SystemIn the event this information is protected by the Federal Confidentiality of Alcohol and Drug Abuse Patient Records regulations: The Federal rules restrict any use of the information to criminally investigate or prosecute any alcohol or drug abuse patient.[facility] Health SystemIn the event this information is protected by the Federal Confidentiality of Alcohol and Drug Abuse Patient Records regulations: The Federal rules restrict any use of the information to criminally investigate or prosecute any alcohol or drug abuse patient.[facility] Health SystemIn the event this information is protected by the Federal Confidentiality of Alcohol and Drug Abuse Patient Records regulations: The Federal rules restrict any use of the information to criminally investigate or prosecute any alcohol or drug abuse patient.[facility] Health SystemIn the event this information is protected by the Federal Confidentiality of Alcohol and Drug Abuse Patient Records regulations: The Federal rules restrict any use of the information to criminally investigate or prosecute any alcohol or drug abuse patient.[facility] Health SystemIn the event this information is protected by the Federal Confidentiality of Alcohol and Drug Abuse Patient Records regulations: The Federal rules restrict any use of the information to criminally investigate or prosecute any alcohol or drug abuse patient.[facility] Health SystemIn the event this information is protected by the Federal Confidentiality of Alcohol and Drug Abuse Patient Records regulations: The Federal rules restrict any use of the information to criminally investigate or prosecute any alcohol or drug abuse patient.[facility] Health SystemIn the event this information is protected by the Federal Confidentiality of Alcohol and Drug Abuse Patient Records regulations: The Federal rules restrict any use of the information to criminally investigate or prosecute any alcohol or drug abuse patient.[facility] Health SystemIn the event this information is protected by the Federal Confidentiality of Alcohol and Drug Abuse Patient Records regulations: The Federal rules restrict any use of the information to criminally investigate or prosecute any alcohol or drug abuse patient.[facility] Health SystemIn the event this information is protected by the Federal Confidentiality of Alcohol and Drug Abuse Patient Records regulations: The Federal rules restrict any use of the information to criminally investigate or prosecute any alcohol or drug abuse patient.[facility] Health SystemIn the event this information is protected by the Federal Confidentiality of Alcohol and Drug Abuse Patient Records regulations: The Federal rules restrict any use of the information to criminally investigate or prosecute any alcohol or drug abuse patient.[facility] Health SystemIn the event this information is protected by the Federal Confidentiality of Alcohol and Drug Abuse Patient Records regulations: The Federal rules restrict any use of the information to criminally investigate or prosecute any alcohol or drug abuse patient.[facility] Health SystemIn the event this information is protected by the Federal Confidentiality of Alcohol and Drug Abuse Patient Records regulations: The Federal rules restrict any use of the information to criminally investigate or prosecute any alcohol or drug abuse patient.[facility] Health SystemIn the event this information is protected by the Federal Confidentiality of Alcohol and Drug Abuse Patient Records regulations: The Federal rules restrict any use of the information to criminally investigate or prosecute any alcohol or drug abuse patient.[facility] Health SystemIn the event this information is protected by the Federal Confidentiality of Alcohol and Drug Abuse Patient Records regulations: The Federal rules restrict any use of the information to criminally investigate or prosecute any alcohol or drug abuse patient.[facility] Health SystemIn the event this information is protected by the Federal Confidentiality of Alcohol and Drug Abuse Patient Records regulations: The Federal rules restrict any use of the information to criminally investigate or prosecute any alcohol or drug abuse patient.[facility] SystemIn the event this information is protected by the Federal Confidentiality of Alcohol and Drug Abuse Patient Records regulations: The Federal rules restrict any use of the information to criminally investigate or prosecute any alcohol or drug abuse patient.[facility] SystemIn the event this information is protected by the Federal Confidentiality of Alcohol and Drug Abuse Patient Records regulations: The Federal rules restrict any use of the information to criminally investigate or prosecute any alcohol or drug abuse patient.[facility] SystemIn the event this information is protected by the Federal Confidentiality of Alcohol and Drug Abuse Patient Records regulations: The Federal rules restrict any use of the information to criminally investigate or prosecute any alcohol or drug abuse patient.[facility] SystemIn the event this information is protected by the Federal Confidentiality of Alcohol and Drug Abuse Patient Records regulations: The Federal rules restrict any use of the information to criminally investigate or prosecute any alcohol or drug abuse patient.[facility] SystemIn the event this information is protected by the Federal Confidentiality of Alcohol and Drug Abuse Patient Records regulations: The Federal rules restrict any use of the information to criminally investigate or prosecute any alcohol or drug abuse patient.[facility] SystemIn the event this information is protected by the Federal Confidentiality of Alcohol and Drug Abuse Patient Records regulations: The Federal rules restrict any use of the information to criminally investigate or prosecute any alcohol or drug abuse patient.[facility] SystemIn the event this information is protected by the Federal Confidentiality of Alcohol and Drug Abuse Patient Records regulations: The Federal rules restrict any use of the information to criminally investigate or prosecute any alcohol or drug abuse patient.[facility] SystemIn the event this information is protected by the Federal Confidentiality of Alcohol and Drug Abuse Patient Records regulations: The Federal rules restrict any use of the information to criminally investigate or prosecute any alcohol or drug abuse patient.[facility] SystemIn the event this information is protected by the Federal Confidentiality of Alcohol and Drug Abuse Patient Records regulations: The Federal rules restrict any use of the information to criminally investigate or prosecute any alcohol or drug abuse patient.[facility] SystemIn the event this information is protected by the Federal Confidentiality of Alcohol and Drug Abuse Patient Records regulations: The Federal rules restrict any use of the information to criminally investigate or prosecute any alcohol or drug abuse patient.[facility] SystemIn the event this information is protected by the Federal Confidentiality of Alcohol and Drug Abuse Patient Records regulations: The Federal rules restrict any use of the information to criminally investigate or prosecute any alcohol or drug abuse patient.[facility] SystemIn the event this information is protected by the Federal Confidentiality of Alcohol and Drug Abuse Patient Records regulations: The Federal rules restrict any use of the information to criminally investigate or prosecute any alcohol or drug abuse patient.[facility] SystemIn the event this information is protected by the Federal Confidentiality of Alcohol and Drug Abuse Patient Records regulations: The Federal rules restrict any use of the information to criminally investigate or prosecute any alcohol or drug abuse patient.[facility] SystemIn the event this information is protected by the Federal Confidentiality of Alcohol and Drug Abuse Patient Records regulations: The Federal rules restrict any use of the information to criminally investigate or prosecute any alcohol or drug abuse patient.[facility] SystemIn the event this information is protected by the Federal Confidentiality of Alcohol and Drug Abuse Patient Records regulations: The Federal rules restrict any use of the information to criminally investigate or prosecute any alcohol or drug abuse patient.[facility] SystemIn the event this information is protected by the Federal Confidentiality of Alcohol and Drug Abuse Patient Records regulations: The Federal rules restrict any use of the information to criminally investigate or prosecute any alcohol or drug abuse patient.[facility] Care Teams (unrecognized sec tion and content) [...] September 02, 2024 End: September 02, 2024 Lna Relationship Specialty Start Date End Date Jamar Fall, DO PCP - General Internal Medicine 08/04/14 Lna Relationship Specialty Start Date End Date Jamar Fall, DO PCP - General Internal Medicine 08/04/14 Lna Relationship Specialty Start Date End Date Jamar Fall, DO PCP - General Internal Medicine 08/04/14 Lna Relationship Specialty Start Date End Date Jamar Fall, DO PCP - General Internal Medicine 08/04/14 Marco A Esqueda MD [address] [place], [place] [id number] Physician Hematology/Oncology 11/02/21 Christo Howard, CROWD CONTROLLER.BRAKE LINING MAKER [address] [place] [address] Nurse Practitioner Hematology/Oncology 11/02/21 Clementine Aguilar, RN [address] [place] [address] Specialty Special Procedure Tech Hematology/Oncology 11/02/21 Lna Relationship Specialty Start Date End Date Juan David Jamar Lopez DO PCP - General Internal Medicine 08/04/14 Marco A Esqueda MD [address] [place] [address] Physician Hematology/Oncology 11/02/21 Christo Howard, CROWD CONTROLLER.BRAKE LINING MAKER [address] [place] [address] Nurse Practitioner Hematology/Oncology 11/02/21 Clementine Aguilar, RN [address] [place] [address] Specialty Special Procedure Tech Hematology/Oncology 11/02/21 Lna Relationship Specialty Start Date End Date Jamar Fall, DO PCP - General Internal Medicine 08/04/14 Marco A Esqueda MD [address] [place] [address] Physician Hematology/Oncology 11/02/21 Christo Howard, CROWD CONTROLLER.BRAKE LINING MAKER [address] [place] [address] Nurse Practitioner Hematology/Oncology 11/02/21 Clementine Aguilar, RN [address] [place] [address] Specialty Special Procedure Tech Hematology/Oncology 11/02/21 Lna Relationship Specialty Start Date End Date Jamar Fall, DO PCP - General Internal Medicine 08/04/14 Marco A Esqueda MD [address] [place] [address] Physician Hematology/Oncology 11/02/21 Christo Howard, CROWD CONTROLLER.BRAKE LINING MAKER [address] [place] [address] Nurse Practitioner Hematology/Oncology 11/02/21 Clementine Aguilar, RN [address] [place] [address] Specialty Special Procedure Tech Hematology/Oncology 11/02/21 Lna Relationship Specialty Start Date End Date Jamar Fall, DO PCP - General Internal Medicine 08/04/14 Marco A Esqueda MD [address] [place] [address] Physician Hematology/Oncology 11/02/21 Christo Howard, CROWD CONTROLLER.[facility] [address] [place] [address] Nurse Practitioner Hematology/Oncology 11/02/21 Clementine Aguilar, ANITHA [address] [place] [address] Specialty Special Procedure Tech Hematology/Oncology 11/02/21 Lna Relationship Specialty Start Date End Date Jamar Fall, DO PCP - General Internal Medicine 08/04/14 Marco A Esqueda MD [address] [place] [address] Physician Hematology/Oncology 11/02/21 Christo Howard, CROWD CONTROLLER.BRAKE LINING MAKER [address] [place] [address] Nurse Practitioner Hematology/Oncology 11/02/21 Clementine Aguilar, ANITHA [address] [place] [address] Specialty Special Procedure Tech Hematology/Oncology 11/02/21 Lna Relationship Specialty Start Date End Date Jamar Fall, DO PCP - General Internal Medicine 08/04/14 Marco A Esqueda MD [address] [place] [address] Physician Hematology/Oncology 11/02/21 Christo Howard, CROWD CONTROLLER.[facility] [address] [place] [address] Nurse Practitioner Hematology/Oncology 11/02/21 Clementine Aguilar, ANITHA [address] [place], [place] [id number] Specialty Special Procedure Tech Hematology/Oncology 11/02/21 Lna Relationship Specialty Start Date End Date Jamar Fall, DO PCP - General Internal Medicine 08/04/14 Marco A Esqueda MD [address] [place], [place] [id number] Physician Hematology/Oncology 11/02/21 Christo Howard, CROWD CONTROLLER.[employer]RAKE LINING MAKER [address] [place] [address] Nurse Practitioner Hematology/Oncology 11/02/21 Clementine Aguilar, RN [address] [place] [address] Specialty Special Procedure Tech Hematology/Oncology 11/02/21 Lna Relationship Specialty Start Date End Date Jamar Fall, DO PCP - General Internal Medicine 08/04/14 Marco A Esqueda MD [address] [place] [address] Physician Hematology/Oncology 11/02/21 Christo Howard, CROWD CONTROLLER.BRAKE LINING MAKER [address] [place] [address] Nurse Practitioner Hematology/Oncology 11/02/21 Clementine Aguilar, ANITHA [address] [place] [address] Specialty Special Procedure Tech Hematology/Oncology 11/02/21 Lna Relationship Specialty Start Date End Date Jamar Fall, DO PCP - General Internal Medicine 08/04/14 Marco A Esqueda MD [address] [place] [address] Physician Hematology/Oncology 11/02/21 Christo Howard, CROWD CONTROLLER.BRAKE LINING MAKER [address] [place] [address] Nurse Practitioner Hematology/Oncology 11/02/21 Clementine Aguilar, RN [address] [place] [address] Specialty Special Procedure Tech Hematology/Oncology 11/02/21 Lna Relationship Specialty Start Date End Date Jamar Fall, DO PCP - General Internal Medicine 08/04/14 Marco A Esqueda MD [address] [place] [address] Physician Hematology/Oncology 11/02/21 Christo Howard, CROWD CONTROLLER.BRAKE LINING MAKER [address] [place] [address] Nurse Practitioner Hematology/Oncology 11/02/21 Clementine Aguilar, ANITHA [address] [place] [address] Specialty Special Procedure Tech Hematology/Oncology 11/02/21 Lna Relationship Specialty Start Date End Date Jamar Fall, DO PCP - General Internal Medicine 08/04/14 Marco A Esqueda MD [address] [place] [address] Physician Hematology/Oncology 11/02/21 Christo Howard, CROWD CONTROLLER.BRAKE LINING MAKER [address] [place] [address] Nurse Practitioner Hematology/Oncology 11/02/21 Clementine Aguilar, ANITHA [address] [place] [address] Specialty Special Procedure Tech Hematology/Oncology 11/02/21 Lna Relationship Specialty Start Date End Date Jamar Fall DO PCP - General Internal Medicine 08/04/14 Marco A Esqueda MD [address] [place] [address] Physician Hematology/Oncology 11/02/21 Christo Howard, CROWD CONTROLLER.BRAKE LINING MAKER [address] [place] [address] Nurse Practitioner Hematology/Oncology 11/02/21 Clementine Aguilar, ANITHA [address] [place] [address] Specialty Special Procedure Tech Hematology/Oncology 11/02/21 Lna Relationship Specialty Start Date End Date Jamar Fall DO PCP - General Internal Medicine 08/04/14 Marco A Esqueda MD [address] [place] [address] [place] [address] Physician Hematology/Oncology 11/02/21 Christo Howard, CROWD CONTROLLER.BRAKE LINING MAKER [address] [place] [address] [place] [address] Nurse Practitioner Hematology/Oncology 11/02/21 Clementine Aguilar, ANITHA [address] [place] [address] Specialty Special Procedure Tech Hematology/Oncology 11/02/21 Lna Relationship Specialty Start Date End Date Jamar Fall DO PCP - General Internal Medicine 08/04/14 Marco A Esqueda MD [address] [place] [address] Physician Hematology/Oncology 11/02/21 Christo Howard, CROWD CONTROLLER.BRAKE LINING MAKER [address] [place] [address] Nurse Practitioner Hematology/Oncology 11/02/21 Clementine Aguilar, ANITHA [address] [place] [address] Specialty Special Procedure Tech Hematology/Oncology 11/02/21 Lna Relationship Specialty Start Date End Date Jamar Fall DO PCP - General Internal Medicine 08/04/14 Marco A Esqueda MD [address] [place] [address] [place] [address] Physician Hematology/Oncology 11/02/21 Christo Howard, CROWD CONTROLLER.BRAKE LINING MAKER [address] [place] [address] Nurse Practitioner Hematology/Oncology 11/02/21 Clementine Aguilar, ANITHA [address] [place] [address] Specialty Special Procedure Tech Hematology/Oncology 11/02/21 Lna Relationship Specialty Start Date End Date Jamar Fall DO PCP - General Internal Medicine 08/04/14 Marco A Esqueda MD [address] [place] [address] Physician Hematology/Oncology 11/02/21 Christo Howrad, CROWD CONTROLLER.BRAKE LINING MAKER [address] [place] [address] [place] [address] Nurse Practitioner Hematology/Oncology 11/02/21 Clementine Aguilar, RN [address] [place] [address] [place] [address] Specialty Special Procedure Tech Hematology/Oncology 11/02/21 Lna Relationship Specialty Start Date End Date Jamar Fall MD [address] [place] [id number] PCP - General Internal Medicine 05/31/23 Lna Relationship Specialty Start Date End Date Jamar Fall MD [address] [place] [address] PCP - General Internal Medicine 05/31/23 Lna Relationship Specialty Start Date End Date Jamar Fall DO PCP - General Internal Medicine 08/04/14 Marco A Esqueda MD [address] [place] [address] [place] [address] Physician Hematology/Oncology 11/02/21 Christo Howard APRN.BRAKE LINING MAKER [address] [place] [address] [place] [address] Nurse Practitioner Hematology/Oncology 11/02/21 Clementine Aguilar, ANITHA [address] [place] [address] Specialty Special Procedure Tech Hematology/Oncology 11/02/21 Lna Relationship Specialty Start Date End Date Jamar Fall DO PCP - General Internal Medicine 08/04/14 Marco A Esqueda MD [address] [place] [address] [place] [address] Physician Hematology/Oncology 11/02/21 Christo Howard, ROCHELLE.BRAKE LINING MAKER [address] [place] [address] Nurse Practitioner Hematology/Oncology 11/02/21 Clementine Aguilar, RN [address] [place] [address] Specialty Special Procedure Tech Hematology/Oncology 11/02/21 Team Status: Active Member Role [...] November 23, 2023 End: November 23, 2023 Lna Relationship Specialty Start Date End Date Jamar Fall DO PCP - General Internal Medicine 08/04/14 Marco A Esqueda MD [address] [place] [address] [place] [address] Physician Hematology/Oncology 11/02/21 Christo Howard, ROCHELLE.BRAKE LINING MAKER [address] [place] [address] Nurse Practitioner Hematology/Oncology 11/02/21 Clementine Aguilar RN [address] [place] [address] Specialty Special Procedure Tech Hematology/Oncology 11/02/21 Lna Relationship Specialty Start Date End Date Jamar Fall DO PCP - General Internal Medicine 08/04/14 Marco A Esqueda MD [address] [place] [address] Physician Hematology/Oncology 11/02/21 Christo Howard, ROCHELLE.BRAKE LINING MAKER [address] [facility] [place] [address] Nurse Practitioner Hematology/Oncology 11/02/21 Clementine Aguilar RN [address] [place] [address] Specialty Special Procedure Tech Hematology/Oncology 11/02/21 Team Status: Active Member Role Status Dates Jamar Fall DO Primary Care Provider Active Start: January 25, 2024 SAMAN Collins Attending Provider Active Start: January 25, 2024 Team Status: Inactive Member Role Status Dates Jamar Fall DO Primary Care Provide r, Attending Provider Active Start: March 26, 2024 End: March 26, 2024 Lna Relationship Specialty Start Date End Date Jamar Fall DO PCP - General Internal Medicine 08/04/14 Marco A Esqueda MD [address] [place] [address] Physician Hematology/Oncology 11/02/21 Christo Howard, ROCHELLE.BRAKE LINING MAKER [address] [facility] [place] [address] Nurse Practitioner Hematology/Oncology 11/02/21 Clementine Aguilar, ANITHA [address] [facility] [place] [address] Specialty Special Procedure Tech Hematology/Oncology 11/02/21 Lna Relationship Specialty Start Date End Date Jamar Fall DO PCP - General Internal Medicine 08/04/14 Marco A Esqueda MD [address] [facility] [place] [address] Physician Hematology/Oncology 11/02/21 Christo Howard, CROWD CONTROLLER.BRAKE LINING MAKER [address] [facility] [place] [address] Nurse Practitioner Hematology/Oncology 11/02/21 Clementine Aguilar, ANITHA [address] [facility] [place] [address] Specialty Special Procedure Tech Hematology/Oncology 11/02/21 Lna Relationship Specialty Start Date End Date Jamar Fall DO PCP - General Internal Medicine 08/04/14 Marco A Esqueda MD [address] [place] [address] Physician Hematology/Oncology 11/02/21 Christo Howard, CROWD CONTROLLER.BRAKE LINING MAKER [address] [facility] [place] [address] Nurse Practitioner Hematology/Oncology 11/02/21 Clementine Aguilar, RN [address] [place] [address] Specialty Special Procedure Tech Hematology/Oncology 11/02/21 Lna Relationship Specialty Start Date End Date Jamar Fall DO PCP - General Internal Medicine 08/04/14 Marco A Esqueda MD [address] [place] [address] Physician Hematology/Oncology 11/02/21 Christo Howard, CROWD CONTROLLER.BRAKE LINING MAKER [address] [place] [address] Nurse Practitioner Hematology/Oncology 11/02/21 Clementine Aguilar, RN [address] [place] [address] Specialty Special Procedure Tech Hematology/Oncology 11/02/21 Lna Relationship Specialty Start Date End Date Jamar Fall DO PCP - General Internal Medicine 08/04/14 Marco A Esqueda MD [address] [place] [address] [place] [address] Physician Hematology/Oncology 11/02/21 Christo Howard, CROWD CONTROLLER.BRAKE LINING MAKER [address] [place] [address] [place] [address] Nurse Practitioner Hematology/Oncology 11/02/21 Clementine Aguilar, ANITHA [address] [place] [address] Specialty Special Procedure Tech Hematology/Oncology 11/02/21 Lna Relationship Specialty Start Date End Date Jamar Fall DO [address] [place] [address] PCP - General Internal Medicine 05/31/23 Lna Relationship Specialty Start Date End Date Jamar Fall DO [address] [place] [address] PCP - General Internal Medicine 05/31/23 Reason [...] up Specialty Diagnoses / Procedures Referred By [facility] Referred To Contact Diagnoses Malignant neoplasm of prostate (HCC) Procedures DENOSUMAB INJECTION Marco A Esqueda MD [address] [place] [address] [place] [address] Himanshu Treat [facility] [address] [place] [place] [address] Referral ID Status Reason Start Date Expiration Date V isits Requested Visits Authorized [id number] Authorized 11/11/2021 07/16/2022 99 99 Reason Comments Care Coordination Refill Question Reason Comments Prostate Cancer 1 month follow up Reason Comments Prostate Cancer Follow up Reason Comments Prostate Cancer 3 month follow up Reason Comments Prostate Cancer Reason Comments Prostate Cancer Follow up Reason Comments Suspicious Skin Lesion Specialty Diagnoses / Procedures [facility] Referred To Contact Dermatology Diagnoses lesion of skin of R ear Marco A Esqueda MD [address] [place] [place] [address] Lety Holguin MD [address] [address] Referral ID Status Reason Start Date Expiration Date Visits Re quested Visits Authorized [id number] Closed 08/04/2023 01/31/2024 1 1 Reason Comments Prostate Cancer 3 month follow up Established Patient Reason Comments Refill Request Reason Onset Date Comments Refill Request 04/01/2024 Reason Onset Date Comments Refill Request 05/08/2024 Reason Onset Date Comments Lab Orders 07/25/2024 Reason Comments Skin Check (unrecognized sect ion and content) No Status Records FoundNo Status Records FoundNo Status Records FoundNo Status Records FoundNo Status Records FoundNo Status Records Found INFORMATION SOURCE (unrecogn ized section and content) DATE CREATED AUTHOR 10/31/2022 [facility] DATE CREATED AUTHOR AUTHOR'S ORGANIZ ATION 03/02/2024 [facility] EPIC DATE CREATED AUTHOR AUTHOR'S ORGANIZ ATION 04/02/2024 [facility] DATE CREATED AUTHOR AUTHOR'S ORGANIZ ATION 10/08/2024 [facility] DATE CREATED AUTHOR AUTHOR'S ORGANIZ ATION 10/27/2024 [facility] DATE CREATED AUTHOR AUTHOR'S ORGANIZ ATION 02/22/2025 [facility] Administered Medications - up to 3 most [...] BE BASED ON THE PRIMARY CLINICAL RECORDS. [employer] provides no warranty or guarantee of the accuracy or completeness of information in this document.
--- OUTSIDE RECORDS SUMMARY | 2025-02-27 08:10 | XMS_ITS | Encounter Summary ---
Author Organization [facility] Address [address] [place] [facility] [place] [address] Care Team Providers Care Wind Field Manager Name Role Phone Jamar Jones DO Primary Care Provider [phone] Encounter Details Date Type Department Care Team (Latest Contact Info) Description 02/25/2025 Travel Social History Tobacco Use Types Packs/Day [...] Office Visit [facility] [address] [facility] [address] [place] [phone] Deisy Boo APRN-ALEXA [address] [place] [address] documented as of this encounter Visit Diagnoses Not on filedocumented in this encounter Care Teams Wind Field Manager Relationship Specialty Start Date End Date Jamar Jones DO [address] [place] [address] PCP - General Internal Medicine 05/31/23 documented as of this encounter
--- OUTSIDE RECORDS SUMMARY | 2025-02-27 08:12 | XMS_ITS | Clinical Summary ---
Author Organization [facility] Address [address] [place], [place] [id number] Care Team Providers Care Jute Bag Clipper Name Role Phone Jamar Jones DO Primary Care Provider [phone] Galina Wall TIMBER PACKER.SINGLE NEEDLE TUFTING MACHINE OPERATOR Unavailable [phone] Clementine Aguilar RN Unavailable [phone] Saul Galdamez MD Unavailable [phone] Allergies Active Allergy Reactions Criticality Noted Date [...] Encounters Date Type Department Care Team Description 02/20/2025 10:45 AM EDT Infusion Center Hematology/Oncology [address] [place] [address] [place] [address] Malignant neoplasm of prostate (HCC) (Primary Dx) 02/20/2025 10:20 AM EDT Visit (SP) Office Hematology/Oncology [address] [place] [address] [place] [address] Saul Galdamez MD Malignant neoplasm of prostate (HCC) (Primary Dx); Type 2 diabetes mellitus without complication, without long-term current use of insulin (HCC); Anemia, unspecified type; Secondary malignant neoplasm of bone (HCC); Cervical disc disorder with radiculopathy of cervical region 02/10/2025 Travel from Last 3 Months Immunizations [...] is lower risk 7 02/02/2023 Data from: https://www.neighborhoodatlas.medicine.[facility].edu/. Last address used for calculation [address] [facility] 02/02/2023 Sex and Gender Information Value [...] 8 oz) 02/20/2025 10:13 AM EDT Height 167.6 cm (5' 5.98 ) 11/07/2024 9:42 AM ED T Body Mass Index 32.54 11/07/2024 9:42 AM EDT Plan of Treatment Upcoming Encounters Date Type Department Care Team (Latest Contact Info) Description 05/15/2025 11:30 AM EDT Office Visit [facility] [address] [place] [address] 3 month lab 05/22/2025 11:00 AM EST Visit (SP) Office Hematology/Oncology [address] [place] [address] Chary Hodge, ROCHELLE.SINGLE NEEDLE TUFTING MACHINE OPERATOR [address] [place] [address] 3 month follow up with xgeva inj 05/22/2025 11:30 AM EST [facility] Hematology/Oncology [address] [place] [address] 3 month follow up with xgeva inj [...] PROSTATE-SPECIFIC ANTIGEN DIAGNOSTIC (2025 9:43 AM EDT) Pathologist [facility] PSA 0.26 <2.60 ng/mL 2025 8:23 PM EDT [facility] Comment:Total PSA test metho dology used is the Electrochemiluminescence Immunoassay by [employer]. Total PSA values by differing methodologies cannot be interchanged. Blood BLOOD SPECIMEN / Unknown Venipuncture / Unknown 2025 9:43 AM EDT 2025 9:43 AM EDT us Marco A Esqueda MD LABORATORY Final Re sult [facility] [address] * (ABNORMAL) COMPREHENSIVE METABOLIC PANEL (2025 9:43 AM EDT) Pathologist [facility] Protein, Total 6.4 6.3 - 8.0 g/dL 2025 10:12 AM EDT [facility] Albumin 4.2 3.9 - 4.9 g/dL 2025 10:12 AM EDT [facility] Calcium, Total 9.3 8.5 - 10.2 mg/dL 2025 10:12 AM EDT [facility] Bilirubin, Total 0.6 0.2 - 1.3 mg/dL 2025 10:12 AM EDT [facility] Alkaline Phosphatase 73 38 - 113 U/L 2025 10:12 AM EDT [facility] AST 17 14 - 40 U/L 2025 10:12 AM EDT [facility] ALT 16 10 - 54 U/L 2025 10:12 AM [facility] Glucose 122(H) 74 - 99 mg/dL 2025 10:12 AM [facility] Comment: The [place] Diabetes Association (ADA) provides guidance for cutoff [...] Standards of Medical Care in Diabetes 2016, French Diabetes Association. Diabetes Care. 2016.39(Suppl 1). BUN 14 9 - 24 mg/dL 2025 10:12 AM [facility] Creatinine 0.68(L) 0.73 - 1.22 mg/dL 2025 10:12 AM [facility] Sodium 136 136 - 144 mmol/L 2025 10:12 AM [facility] Potassium 4.5 3.7 - 5.1 mmol/L 2025 10:12 AM [facility] Chloride 101 98 - 107 mmol/L 2025 10:12 AM [facility] CO2 25 22 - 30 mmol/L 2025 10:12 AM [facility] Anion Gap 10 8 - 15 mmol/L 2025 10:12 AM [facility] Estimated Glomerular Filtration Rate 95 >=60 mL/min/1. 73m 2025 10:12 AM [facility] Comment:Estimated Glomerular Filtration Rate (eGFR) [...] A Esqueda MD LABORATORY Final Re sult [facility] [address] [place] [address] * (ABNORMAL) COMPLETE BLOOD COUNT AND DIFFERENTIAL (2025 9:43 AM EDT) WBC 7.09 3.70 - 11.00 k/uL 2025 9:55 AM EDT [facility] RBC 3.69(L) 4.20 - 6.00 m/uL 2025 9:55 AM EDT [facility] Hemoglobin 12.0(L) 13.0 - 17.0 g/dL 2025 9:55 AM EDT [facility] Hematocrit 35.3(L) 39.0 - 51.0 % 2025 9:55 AM EDT [facility] MCV 95.7 80.0 - 100.0 fL 2025 9:55 AM EDT [facility] MCH 32.5 26.0 - 34.0 pg 2025 9:55 AM EDT [facility] MCHC 34.0 30.5 - 36.0 g/dL 2025 9:55 AM EDT [facility] RDW-CV 12.7 11.5 - 15.0 % 2025 9:55 AM EDT [facility] Platelet Count 204 150 - 400 k/uL 2025 9:55 AM EDT [facility] MPV 10.1 9.0 - 12.7 fL 2025 9:55 AM EDT [facility] Neutrophils % 52.2 % 2025 9:55 AM EDT [facility] Abs Neut 3.70 1.45 - 7.50 k/uL 2025 9:55 AM EDT [facility] Lymphocytes % 29.5 % 2025 9:55 AM EDT [facility] Abs Lymph 2.09 1.00 - 4.00 k/uL 2025 9:55 AM EDT [facility] Monocytes % 9.6 % 2025 9:55 AM EDT [facility] Abs [place] 0.68 <0.87 k/uL 2025 9:55 AM EDT [facility] Eosinophils % 7.5 % 2025 9:55 AM EDT [facility] Abs Eosin 0.53(H) <0.46 k/uL 2025 9:55 AM EDT [facility] Basophils % 0.4 % 2025 9:55 AM EDT [facility] Abs Baso 0.03 <0.11 k/uL 2025 9:55 AM EDT [facility] Immature Granulocytes % 0.8 % 2025 9:55 AM EDT [facility] Abs Immature Gran 0.06 <0.10 k/uL 2025 9:55 AM EDT [facility] NRBC 0.0 /100 WBC 2025 9:55 AM EDT [facility] Absolute nRBC <0.01 <0.01 k/uL 2025 9:55 AM EDT [facility] Diff Type Auto 2025 9:55 AM EDT [facility] Blood BLOOD SPECIMEN / Unknown Venipuncture / Unknown 2025 9:43 AM EDT 2025 9:43 AM EDT Marco A Esqueda MD LABORATORY Final Re sult [facility] [place] [facility] [address] [place] [id number] from Last 3 Months Insurance MEDICARE MEDICARE SUPPLEMENT Care Teams Jute Bag Clipper Relationship Specialty Start Date End Date Jamar Jones DO PCP - General Internal Medicine 08/04/14 Galina Wall APRN.SINGLE NEEDLE TUFTING MACHINE OPERATOR [address] [place] [address] [place] [address] Nurse Practitioner Hematology/Oncology 11/02/21 Clementine Aguilar, ANITHA [address] [place] [address] Specialty Molded Frames Assembler Hematology/Oncology 11/02/21 Saul Galdamez MD [address] [place] [address] [place] [address] Physician Hematology/Oncology 01/21/25
== END 2025-02-27 08:04 | disposition home or self-care (01) ==
LOC: PM 08:04
PROVIDERS: Visit Provider Nurse Practitioner
DX: M54.12 Radiculopathy, cervical region (principal); M48.02 Spinal stenosis, cervical region; M47.816 Spondylosis without myelopathy or radiculopathy, lumbar region; M79.18 Myalgia, other site
CPT/HCPCS: G0463

== ENCOUNTER 2025-03-20 10:08 | Outpatient (OUT) | payer MEDICARE, OTHER, SELFPAY ==
--- OUTSIDE RECORDS SUMMARY | 2025-03-20 09:20 | XMS_ITS | Encounter Summary ---
Author Organization [facility] Address [address] [address] Care Team Providers Care Child And Family Services Worker Name Role Phone Jamar Jones DO Primary Care Provider [phone] Reason for Referral * Imaging (Routine) - Pending Review Specialty Diagnoses / Procedures Referred By Jeffery choudhury Referred To Contact Cardiology Diagnoses Coronary artery disease involving [place] coronary artery of [place] heart without angina pectoris Procedures Transthoracic echo (TTE) complete Katelyn Quiroz CNP [address] [place] [address] Phone: tel: fax: Referral ID Status Reason Start Date Expiration Date Visits Requested Visits Authorized [id number] Pending Review Perform Procedure 03/20/2025 03/20/2026 1 1 Reason for Visit * Reason Comments Coronary Artery Disease Denies chest yue n and SOB. No recent testing. Valve Disorder Denies lightheadedne ss and palpitations. Hypertension Had labs in January. Hyperlipidemia No recent lipid pane l. [facility] one [facility] about a [facility]. 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; Coronary artery disease involving [place] coronary artery of [place] heart without angina pectoris; Adult general medical exam; Essential hypertension Social History Tobacco Use Types Packs/Day Years [...] 9:28 AM EDT documented in this encounter Plan of Treatment Scheduled Orders Name Type Priority Associated Diagnoses Orde r Schedule CBC Lab Routine Coronary artery disease involving [place] coronary artery of [place] heart without angina pectoris Expected: 03/20/2025 (Approximate), Expires: 03/20/2026 Comprehensive metabolic panel Lab Routine Mixed hyperlipidemia Coronary artery disease involving [place] coronary artery of [place] heart without angina pectoris Expected: 03/20/2025 (Approximate), Expires: 03/20/2026 Lipid panel Lab Routine Mixed hyperlipidemia Coronary artery disease involving [place] coronary artery of ton[place] heart without angina pectoris Expected: 03/20/2025 (Approximate), Expires: 03/20/2026 TSH3 Reflex to FT4 Lab Routine Mixed hyperlipidemia Coronary artery disease involving [place] coronary artery of [place] heart without angina pectoris Adult general medical exam Essential hypertension Expected: 03/20/2025 (Approximate), Expires: 03/20/2026 Transthoracic echo (TTE) complete Echocardiography Routine Coronary artery disease involving [place] coronary artery of [place] heart without angina pectoris Expected: 03/20/2025 (Approximate), Expires: 03/20/2027 documented as of this encounter Visit Diagnoses Diagnosis Mixed hyperlipidemia- Primary 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
--- OUTSIDE RECORDS SUMMARY | 2025-03-20 10:12 | XMS_ITS | Clinical Summary ---
Author Organization [facility] Address [address] [place] [address] Care Team Providers Care Log Haul Chain Feeder Name Role Phone Jamar Jones DO Primary Care Provider [phone] Allergies Active Allergy Reactions Criticality Noted Date [...] Active Problems Problem Noted Date Diagnosed Date Arthritis of right hand 03/20/2025 Bilateral carpal tunnel syndrome 03/20/2025 Carpal tunnel syndrome 03/20/2025 Paresthesia of both hands 03/20/2025 Cervical spondylosis 03/27/2024 Mass of skin of [...] Risk 6.0 % 30-day risk of , AL, or cardiac arrest From a cardiac perspective [...] Entered By: HARVINDER TORIBIO Comment: PROSTATECTOMY 10/2014 Encounters Date Type Department Care Team Description 03/20/2025 9:20 AM EDT Office Visit [address] [address] Katelyn Quiroz CNP Mixed hyperlipidemia (Primary Dx); 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; Coronary artery disease involving stockbridge coronary artery of stockbridge heart without angina pectoris; Adult general medical exam; Essential hypertension from Last 3 Months Family History Medical History Relation Name Comments [...] Heterosexual or Straight 09/2024 11:14 AM EDT Last Filed Vital Signs Vital [...] Mass Index 33.45 03/20/2025 9:28 AM EDT Plan of Treatment Health Maintenance Due Date Last Done Comments Diabetes: Hemoglobin A1C 1945 Medicare Annual Wellness (AWV) 1945 Diabetes: Retinopathy Screening 02/14/1956 Depression Screening 1958 Diabetes: Urine Protein Screening 1965 Fall Risk Screening 2011 COVID-19 Vaccine ( season) 2025 04/26/2024, 04/21/2022, 01/21/2022, Additional history exists Influenza Vaccine (#1) 2025 , 05/01/2023, 04/28/2022, Additional history exists Adult Tetanus 04/25/2034 04/25/2024, 12/0 10/2012, 04/24/2013, Additional history exists Pneumococcal Vaccine: 50+ Years Completed 06/12/2017, 06/01/2017, 05/11/2015, Additional history exists Zoster Vaccines Completed 08/20/2018, [...] to complete this topic Insurance [place] [address] Care Teams Log Haul Chain Feeder Relationship Specialty Start Date End Date Jamar Jones DO [address] [place] [id number] PCP - General 04/27/22
--- OUTSIDE RECORDS SUMMARY | 2025-03-20 10:12 | XMS_ITS | Clinical Summary ---
Author Organization [facility] Address [address] [place] [address] Care Team Providers Care Interventional Cardiologist Name Role Phone Jamar Jones DO Primary Care Provider [phone] Allergies Active Allergy Reactions Criticality Noted Date [...] Dermatology [address] [place] [address] Deisy Boo APRN-ALEXA Seborrheic keratosis (Primary Dx); Melanocytic nevus of trunk; Actinic keratosis; Lentigines; Psoriasis vulgaris ; History of SCC (squamous cell carcinoma) of skin 02/25/2025 Bamboo flowsheet [facility] [address] [place] [address] Deisy Boo APRN-CNP 02/25/2025 Travel 02/18/2025 Travel [...] Dermatology [address] [place] [id number] Deisy Boo APRN-DIRECTOR INDUSTRIAL NURSING [address] [place] [address] Health Maintenance Due Date Last Done Comments Influenza Vaccine (#1) 2025 , 05/01/2023, 04/28/2022, Additional history exists Pneumococcal Vaccine: 65+ Years Completed 06/12/2017, 06/01/2017, 05/11/2015, Additional history exists Procedures Procedure Name Priority Date/Time Associated Diagnosis Comments CRYOTHERAPY SKIN LESION Routine 02/26/20 10:15 AM EDT Actinic keratosis from Last 3 Months Results * Cryotherapy, skin lesion (02/25/2025 10:15 AM EDT) Deisy Boo EARLY CHILDHOOD EDUCATION COORDINATOR-DIRECTOR INDUSTRIAL NURSING DERM PROCEDURE ORDERAB LES Final Result from Last 3 Months Insurance MEDICARE [employer] [place] Care Teams Interventional Cardiologist Relationship Specialty Start Date End Date Jamar Jones DO [address] [place] [address] PCP - General Internal Medicine 05/31/23
--- OUTSIDE RECORDS SUMMARY | 2025-03-20 10:12 | XMS_ITS | Encounter Summary ---
Author Organization [facility] Address [address] [place], [place] [id number] Care Team Providers Care Reed Maker Name Role Phone Jamar Jones DO Primary Care Provider [phone] Marco A Esqueda MD Unavailable Unavail able Galina Wall APRN.SOLAR MAINTENANCE TECHNICIAN Unavailable [phone] Clementine Aguilar RN Unavailable [phone] Saul Galdamez MD Unavailable [phone] Source Comments In the event this information is protected by the Federal Confidentiality of Alcohol and Drug AbusePatient Records regulations: The Federal rules restrict any use of the information to criminally investigate or prosecute any alcohol or drug abuse patient.[facility] Encounter Details Date Type Department Care [...] is lower risk 7 02/02/2023 Data from: https://www.neighborhoodatlas.medicine.[facility]/. Last address used for calculation [address] [...] 05/15/2025 11:30 AM EDT Office Visit [facility] [address] [place] [address] [place] [address] 3 month lab 05/22/2025 11:00 AM EST Visit (SP) Office Hematology/Oncology [facility] [place] [address] Chary Hodge, HEALTHCARE ADVISORY SERVICES MANAGER.SOLAR MAINTENANCE TECHNICIAN [facility] [place] [address] 3 month follow up with xgeva inj 05/22/2025 11:30 AM EST Infusion Center Hematology/Oncology [facility] [place] [place] [address] 3 month follow up with xgeva inj documented as of this encounter Visit Diagnoses Not on filedocumented in this encounter Care Teams Reed Maker Relationship Specialty Start Date End Date Jamar Jones DO PCP - General Internal Medicine 08/04/14 Marco A Esqueda MD Physician Hematology/Oncology 11/02/21 01/20/25 Galina Wall, HEALTHCARE ADVISORY SERVICES MANAGER.SOLAR MAINTENANCE TECHNICIAN [facility] [place] [place] [address] Nurse Practitioner Hematology/Oncology 11/02/21 Clementine Aguilar, ANITHA [facility] [place] [address] Specialty Adult Remedial Education Instructor Hematology/Oncology 11/02/21 Saul Galdamez MD [address] [place] [address] [place] [address] Physician Hematology/Oncology 01/21/25 documented as of this encounter
--- OUTSIDE RECORDS SUMMARY | 2025-03-20 10:12 | XMS_ITS | Patient Health Record ---
Author Organization [facility] Address [address] [place] [address] Care Team Providers Care Childrens Club Attendant Name Role Phone LISSA FALL DO Primary Care Provider Unavaila Cristhian Santos Unavailable [phone] PHILIP TALAVERA CNP Unavailable Unavailable xxClarkeJustoDeisy Unavailable Allergies Allergen (clinical drug ingredient) Drug/Non Drug Allergy documented on EMR Reaction Allergy Type Onset Date Status PENICILLIN (uncoded) Unknown Allergy Active Reason For Referral No Information Medications Medication SIG (Take, Route, Frequency, Duration) [...] Status Risk Notes Problem Carpal tunnel syndrome (33641879) Right carpal tunnel syndrome (G56.01) Active confirmed Problem Carpal tunnel syndrome (78024621) Left carpal tunnel syndrome (G56.02) Active confirmed Problem 604059702 Paresthesia of both hands (R20.2) Active confirmed Problem [id number] Bilateral carpal tunnel syndrome (G56.03) Active confirmed Problem 404239306170219 Arthritis of right hand (M19.041) Active confirmed Encounters Encounter Location Date Provider Diagnosis [facility] [address] [place] [address] 04/08/2024 Cristhian Dumas Right carpal tunnel syndrome G56.01 [facility] [address] [place] [address] 04/22/2024 Cristhian Dumas Left carpal tunnel syndrome G56.02 [facility] Office [address] [place] [address] [place] [address] 05/06/2024 Deisy joeWinn Bilateral carpal tunnel syndrome G56.03 Assessments Encounter Date Diagnosis (ICD Code) Assessment Notes Treatment Notes Treatment Clinical Notes Section Notes 04/08/2024 Right carpal tunnel syndrome (ICD-10 - G56.01) 04/22/2024 Left carpal tunnel syndrome (ICD-10 - G56.02) 05/06/2024 Bilateral carpal tunnel syndrome (ICD-10 - G56.03) 05/06/2024 Other Patient is lux joseline very well from a postoperative standpoint of [...] A1C 01/29/2024 SCC- HAND 3 VIEW RIGHT [id number] 01/29/2024 Insurance Providers Payer Name Payer Address Payer Phone Subscriber Number Group Number Insured Name Patient Relationship to Insured Coverage Start Date Coverage [place] [address] [place] [address] [id number] PABLO ONEIL Self - patient is the insured Medicare MMDC Advantage [address] [place] [address] [id number] PABLO ONEIL Self - patient is the insured Medical (General) History Medical History History 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
--- OUTSIDE RECORDS SUMMARY | 2025-03-20 10:12 | XMS_ITS | Encounter Summary ---
Author Organization [facility] Address [address] [place] [address] Care Team Providers Care Quality Coordinator Name Role Phone Jamar Jones DO Primary Care Provider [phone] Marco A Esqueda MD Unavailable Unavail able Galina Wall APRN.MASTER SONAR TECHNICIAN Unavailable [phone] Clementine Aguilar RN Unavailable [phone] Saul Galdamez MD Unavailable [phone] Source Comments In the event this information is protected by the Federal Confidentiality of Alcohol and Drug AbusePatient Records regulations: The Federal rules restrict any use of the information to criminally investigate or prosecute any alcohol or drug abuse patient.[facility] Reason for Visit * Reason Comments Refill Request Encounter Details Date Type Department Care Team (Late st Contact Info) Description 04/01/2024 Refill Hematology/Oncology [address] [place] [address] [place] [address] Marco A Esqueda MD Refill Request [...] is lower risk 7 02/02/2023 Data from: https://www.neighborhoodatlas.medicine.[facility]/. Last address used for calculation [address] [...] Description 05/15/2025 11:30 AM EDT Office Visit [facility] Laboratory [address] [place] [address] [place] [address] 3 month lab 05/22/2025 11:00 AM EST Visit (SP) Office Hematology/Oncology [facility] [place] [place] [address] Chary Hodge, RESEARCH AND DEVELOPMENT MANAGER.MASTER SONAR TECHNICIAN [address] [place] [address] 3 month follow up with xgeva inj 05/22/2025 11:30 AM EST Infusion Center Hematology/Oncology [facility] [place] [address] 3 month follow up with xgeva inj documented as of this encounter Visit Diagnoses Not on filedocumented in this encounter Care Teams Quality Coordinator Relationship Specialty Start Date End Date Jamar Jones DO PCP - General Internal Medicine 08/04/14 Marco A Esqueda MD Physician Hematology/Oncology 11/02/21 01/20/25 Galina Wall, RESEARCH AND DEVELOPMENT MANAGER.MASTER SONAR TECHNICIAN [facility] [place] [address] [place] [address] Nurse Practitioner Hematology/Oncology 11/02/21 Clementine Aguilar, ANITHA [address] [place] [address] Specialty Tower Excavator Operator Hematology/Oncology 11/02/21 Saul Galdamez MD [facility] [place] [place] [address] Physician Hematology/Oncology 01/21/25 documented as of this encounter
--- OUTSIDE RECORDS SUMMARY | 2025-03-20 10:12 | XMS_ITS ---
Author Organization [facility] Address [address] [place], [place] [address] Care Team Providers Care Shaker Plate Operator Name Role Phone Jamar Jones Primary Care Provider [phone] Galina Wall SEISMIC PROSPECTING OBSERVER.HELICOPTER UTILITY AIRCREWMAN Unavailable [phone] Clementine Aguilar RN Unavailable [phone] Saul Galdamez MD Unavailable [phone] Active Problems Problem Noted Date Diagnosed Date [...]
--- OUTSIDE RECORDS SUMMARY | 2025-03-20 10:12 | XMS_ITS | Clinical Summary ---
Author Organization [facility] Address [id number] [address] [place] [address] Care Team Providers Care Emu Farm Worker Name Role Phone Unavailable Primary Care Provider [...] Medical Devices Not on file Insurance [employer] [place] MEDICARE
--- OUTSIDE RECORDS SUMMARY | 2025-03-20 10:13 | XMS_ITS | Clinical Summary ---
Author Organization [facility] Address [address] [place], [place] [address] Care Team Providers Care Speech And Language Clinician Name Role Phone Jamar Jones DO Primary Care Provider [phone] Galina Wall PERSONAL LINES UNDERWRITER.HOSE HANDLER Unavailable [phone] Clementine Augilar RN Unavailable [phone] Saul Galdamez MD Unavailable [phone] Allergies Active Allergy Reactions Criticality Noted [...] 02/20/2025 10:45 AM EDT Infusion Center Hematology/Oncology [address] [place] [address] [place] [address] Malignant neoplasm of prostate (HCC) (Primary Dx) 02/20/2025 10:20 AM EDT Visit (SP) Office Hematology/Oncology [address] [place] [address] [place] [address] Saul Galdamez MD Malignant neoplasm of prostate [...] is lower risk 7 02/02/2023 Data from: https://www.neighborhoodatlas.medicine.[facility].edu/. Last address used for calculation [address] [facility] 02/02/2023 Sex and Gender Information Value Date [...] Description 05/15/2025 11:30 AM EDT Office Visit [facility] [address] [place] [address] 3 month lab 05/22/2025 11:00 AM EST Visit (SP) Office Hematology/Oncology [address] [place] [address] Chary Hodge, ROCHELLE.HOSE HANDLER [address] [place] [address] 3 month follow up with xgeva inj 05/22/2025 11:30 AM EST [facility] Hematology/Oncology [address] [place] [address] 3 month follow up with xgeva inj [...] ANTIGEN DIAGNOSTIC (2025 9:43 AM EDT) Pathologist [facility] PSA 0.26 <2.60 ng/mL 2025 8:23 PM EDT [facility] Comment:Total PSA test metho dology used is the Electrochemiluminescence Immunoassay by [employer]. Total PSA values by differing methodologies cannot be interchanged. Blood BLOOD SPECIMEN / Unknown Venipuncture / Unknown 2025 9:43 AM EDT 2025 9:43 AM EDT us Marco A Esqueda MD LABORATORY Final Re sult [facility] [address] * (ABNORMAL) COMPREHENSIVE METABOLIC PANEL (2025 9:43 AM EDT) Pathologist [facility] Protein, Total 6.4 6.3 - 8.0 g/dL 2025 10:12 AM EDT [facility] Albumin 4.2 3.9 - 4.9 g/dL 2025 10:12 AM EDT [facility] Calcium, Total 9.3 8.5 - 10.2 mg/dL 2025 10:12 AM EDT [facility] Bilirubin, Total 0.6 0.2 - 1.3 mg/dL 2025 10:12 AM EDT [facility] Alkaline Phosphatase 73 38 - 113 U/L 2025 10:12 AM EDT [facility] AST 17 14 - 40 U/L 2025 10:12 AM EDT [facility] ALT 16 10 - 54 U/L 2025 10:12 AM [facility] Glucose 122(H) 74 - 99 mg/dL 2025 10:12 AM [facility] Comment: The [place] Diabetes Association (ADA) provides guidance for cutoff [...] Standards of Medical Care in Diabetes 2016, [place] Diabetes Association. Diabetes Care. 2016.39(Suppl 1). BUN 14 9 - 24 mg/dL 2025 10:12 AM [facility] Creatinine 0.68(L) 0.73 - 1.22 mg/dL 2025 10:12 AM [facility] Sodium 136 136 - 144 mmol/L 2025 10:12 AM [facility] Potassium 4.5 3.7 - 5.1 mmol/L 2025 10:12 AM [facility] Chloride 101 98 - 107 mmol/L 2025 10:12 AM [facility] CO2 25 22 - 30 mmol/L 2025 10:12 AM [facility] Anion Gap 10 8 - 15 mmol/L 2025 10:12 AM [facility] Estimated Glomerular Filtration Rate 95 >=60 mL/min/1. 73m 2025 10:12 AM [facility] Comment:Estimated Glomerular Filtration Rate [...] A Esqueda MD LABORATORY Final Re sult [facility] [address] [place] [address] * (ABNORMAL) COMPLETE BLOOD COUNT AND DIFFERENTIAL (2025 9:43 AM EDT) WBC 7.09 3.70 - 11.00 k/uL 2025 9:55 AM EDT [facility] RBC 3.69(L) 4.20 - 6.00 m/uL 2025 9:55 AM EDT [facility] Hemoglobin 12.0(L) 13.0 - 17.0 g/dL 2025 9:55 AM EDT [facility] Hematocrit 35.3(L) 39.0 - 51.0 % 2025 9:55 AM EDT [facility] MCV 95.7 80.0 - 100.0 fL 2025 9:55 AM EDT [facility] MCH 32.5 26.0 - 34.0 pg 2025 9:55 AM EDT [facility] MCHC 34.0 30.5 - 36.0 g/dL 2025 9:55 AM EDT [facility] RDW-CV 12.7 11.5 - 15.0 % 2025 9:55 AM EDT [facility] Platelet Count 204 150 - 400 k/uL 2025 9:55 AM EDT [facility] MPV 10.1 9.0 - 12.7 fL 2025 9:55 AM EDT [facility] Neutrophils % 52.2 % 2025 9:55 AM EDT [facility] Abs Neut 3.70 1.45 - 7.50 k/uL 2025 9:55 AM EDT [facility] Lymphocytes % 29.5 % 2025 9:55 AM EDT [facility] Abs Lymph 2.09 1.00 - 4.00 k/uL 2025 9:55 AM EDT [facility] Monocytes % 9.6 % 2025 9:55 AM EDT [facility] Abs [place] 0.68 <0.87 k/uL 2025 9:55 AM EDT [facility] Eosinophils % 7.5 % 2025 9:55 AM EDT [facility] Abs Eosin 0.53(H) <0.46 k/uL 2025 9:55 AM EDT [facility] Basophils % 0.4 % 2025 9:55 AM EDT [facility] Abs Baso 0.03 <0.11 k/uL 2025 9:55 AM EDT [facility] Immature Granulocytes % 0.8 % 2025 9:55 AM EDT [facility] Abs Immature Gran 0.06 <0.10 k/uL 2025 9:55 AM EDT [facility] NRBC 0.0 /100 WBC 2025 9:55 AM EDT [facility] Absolute nRBC <0.01 <0.01 k/uL 2025 9:55 AM EDT [facility] Diff Type Auto 2025 9:55 AM EDT [facility] Blood BLOOD SPECIMEN / Unknown Venipuncture / Unknown 2025 9:43 AM EDT 2025 9:43 AM EDT Marco A Esqueda MD LABORATORY Final Re sult [facility] [place] [facility] [address] [place] [address] from Last 3 Months Insurance MEDICARE MEDICARE SUPPLEMENT Care Teams Speech And Language Clinician Relationship Specialty Start Date End Date Jamar Jones DO PCP - General Internal Medicine 08/04/14 Galina Wall APRN.HOSE HANDLER [address] [place] [address] [place] [address] Nurse Practitioner Hematology/Oncology 11/02/21 Clementine Aguilar, ANITHA [address] [place] [address] Specialty Sonar Technician Hematology/Oncology 11/02/21 Saul Galdamez MD [address] [place] [address] [place] [address] Physician Hematology/Oncology 01/21/25
--- OUTSIDE RECORDS SUMMARY | 2025-03-20 10:20 | XMS_ITS | CCD ---
Author Organization [facility] Care Team Providers Care Distribution Collection Operator Name Role Phone Jamar Fall DO Primary Care Provider Marco A Esqueda MD R Unavailable [phone] [employer] SALES CONSULTANT.ALEXA, Christo Unavailable Lauren WELSH, Clementine Unavailable JAMAR FALL Primary Care Physician Jamar Fall DO Primary Care Provider Marco A Esqueda MD R Unavailable [phone] [employer] SALES CONSULTANT.SALES AND SERVICE ENGINEER, Christo Unavailable Lauren WELSH, Clementine Unavailable [phone] Jamar Fall DO Primary Care Provider Dheerja JAMES, Marco A R Unavailable [employer]SULTANT.ALEXA, Christo Unavailable Lauren WELSH, Clementine Unavailable Jamar [...] Consulting Unavaila ble Lauren RN, Clementine Unavailable [phone] Juan David JAMES, Jamar E Primary Care Provider Ball DO, Jamar E Primary Care Provider LONG BOO Attending Unavailable MARCO A ESQUEDA Referring Unavailable TIMMIEMELINA Barnett Attending Unavailable BALL, JAMAR E Referring Unavailable CHRISTINAPABLO Attending Unavailable LONG BOO Attending Unavailable ALEXIA FRANCO Attending Unavailable KESHIA, BRIDGER Attending Unavailable LORA ENGLISH Attending Unavailable SCRUGGSAnthony Attending Unavailable SCRUGGS, Anthony R Attending Unavailable SCRUGGSAnthony Attending Unavailable SCRUGGS, Anthony R Attending Unavailable [...] Ball DO, Jamar E Primary Care Provider Sharon JAMES, Nicole Lang Attending Unavailable Sharon JAMES, Nicole Lang Attending Unavailable Nicole Herrera MD Attending Unavailable Allergies Allergy Classification Reported Allergen(s) Allergy Type Date of Onset Reaction(s) Facility (18 sources) Penicillins; Translations: [PENICILLINS] Drug Allergy 1 Unknown [facility] (20 sources) Penicillin G; Translations: [penicillin G benzathine] Drug Allergy 1 Unknown (qualifier value) [facility] (20 sources) Penicillins Drug Allergy 5 Unknown [facility] (20 sources) Simvastatin; Translations: [SIMVASTATIN] Drug Allergy 2 Unknown [facility] (1 source) Penicillins Drug allergy (disorder) 5 [facility] (1 source) Penicillin Drug Allergy Unknown [facility] (1 source) Allergies Reconciled Propensity to adverse reactions Unknown [facility] Other (1 source) patient allergy list reviewed by nurse or physicia Propensity to adverse reactions 9 Comment:Done [facility] Other (6 sources) Simvastatin Propensity to adverse reactions 2 [facility] (1 source) Penicillins Drug Allergy 5 Unknown [facility] Medications Current Medications Medication Drug Class(es) Dates [...] on above: Take 2 tablets by mo [facility] once daily. Contour Next - (20 [...] (3 sources) Corticosteroid Start: 02-26-20 End: 02-26-20 fluocinonide (Lidex) 0.05 % cream Indications: Psoriasis [...] sources) Anticholinergic Start: 10-20-2023 ipratropium Nasal 0.06% [place] Refill(s) 0 Start Date: 10/20/23 Status: Ordered [...] by mouth twice daily. Take by mouth. Etjklyiyekrww-Ysguiagr-Djdtm n (MULTIVITAMIN 50 PLUS) tab (20 sources) [...] above: Take 1 tablet by [facility] twice daily. clopidogrel 75 mg [...] Chronic Comment on above: Echo: ROGER 1.13, [facility] 324, / 04/2022Echo: ROGER 1.3, Velocity 280, gradient 06/2023 Hyperplasia of prostate (2 sources) Lower [...] on above: MRCP: no significant change in - 2021, 2022, 05/2024 Residual codes; unclassified (20 [...] Reference Range [facility] (SP[facility] Office ([facility]) PABLO FELIX ([id number]) 1945 M Date Time Provider Department 02/20/25 10:20 AM SAUL TRACEY During your visit today, we recorded the following information about you: Temperature Pulse Respiration Blood pressure 97.6 degrees 60/minute 16/minute 130/84 Weight 91.4 kg Saul Tracey MD 02/20/2025 10:48 AM Signed NAME: Pablo Felix CLINIC NO.: [id number] DATE OF SERVICE: February 20, 2025 (Denice) Some elements in this clinic note that are critical to medical decision making have been carefully reviewed and included from a prior clinic note dated: 11/07/2024 (Dheeraj) Referring Provider: RADHA Additional Clinicians involved in Pablo Felix's care: Dr. Jamar Fall, Dr. Anthony Scruggs, Dr. Khan, [facility] Cardiology DIAGNOSIS: Metastatic prostate cancer CASE SUMMARY / ASSESSMENT: 80 year old man with. 1. Metastatic prostate cancer (HCC) - ICD9: 185, ICD10: C61 (primary diagnosis) The patient was diagnosed with early-stage high-grade prostate cancer in June 2014 (TRUS biopsy 07/02/2014). He underwent a radical prostatectomy on 11/05/2014. Pathology consistent with stage IIIC (pT2b, N0, M0), Painter 5+4 equal 9. 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 Stable on current medications. Continue [...] normal. Ane (more content not included)... Normal [facility] CBC W Auto Differential pane l (Bld)on 2025 Basophils (Bld) [#/Vol] 0.03 10*3/uL Normal <0.11 [facility] Comment on above: Order Comment: Speci men Type: BLOOD SPECIMEN Ordering Facility: [facility] Address: [address] [place] [address] [place] [address] Performed By: #### 2 857-1 #### [facility] CLIA [id number] [address] [place] [address] [place] Basophils/100 WBC (Bld) 0.4 % Normal [facility] Comment on above: Order Comment: Speci men Type: BLOOD SPECIMEN Ordering Facility: [facility] Address: [address] [place] [address] Performed By: #### 2 857-1 #### [facility] CLIA [id number] [address] [place] [address] [place] Differential cell count method Nom (Bld) Auto Normal [facility] Comment on above: Order Comment: Speci men Type: BLOOD SPECIMEN Ordering Facility: [facility] Address: [address] [place] [address] Performed By: #### 2 857-1 #### [facility] CLIA [id number] [address] [place] [address] [place] Eosinophils (Bld) [#/Vol] 0.53 10*3/uL High <0.46 [facility] Comment on above: Order Comment: Speci men Type: BLOOD SPECIMEN Ordering Facility: [facility] Address: [address] [place] [address] Performed By: #### 2 857-1 #### [facility] CLIA [id number] [address] [place] [address] [place] Eosinophils/100 WBC (Bld) 7.5 % Normal [facility] Comment on above: Order Comment: Speci men Type: BLOOD SPECIMEN Ordering Facility: [facility] Address: [address] [place] [address] Performed By: #### 2 857-1 #### [facility] CLIA [id number] [address] [place] [address] [place] Erythrocyte distribution width (RBC) [Ratio] 12.7 % Normal 11.5-15.0 [facility] Comment on above: Order Comment: Speci men Type: BLOOD SPECIMEN Ordering Facility: [facility] Address: [address] [place] [address] Performed By: #### 2 857-1 #### [facility] CLIA [id number] [address] [place] [address] [place] Hematocrit (Bld) [Volume fraction] 35.3 % Low 39.0-51.0 [facility] Comment on above: Order Comment: Speci men Type: BLOOD SPECIMEN Ordering Facility: [facility] Address: [address] [place] [address] Performed By: #### 2 857-1 #### [facility] CLIA [id number] [address] [place] [address] [place] Hemoglobin (Bld) [Mass/Vol] 12.0 g/dL Low 13.0-17.0 [facility] Comment on above: Order Comment: Speci men Type: BLOOD SPECIMEN Ordering Facility: [facility] Address: [address] [place] [address] Performed By: #### 2 857-1 #### [facility] CLIA [id number] [address] [place] [address] [place] Immature granulocytes (Bld) [#/Vol] 0.06 10*3/uL Normal <0.10 [facility] Comment on above: Order Comment: Speci men Type: BLOOD SPECIMEN Ordering Facility: [facility] Address: [address] [place] [address] Performed By: #### 2 857-1 #### [facility] CLIA [id number] [address] [place] [address] [place] Immature granulocytes/100 WBC (Bld) 0.8 % Normal [facility] Comment on above: Order Comment: Speci men Type: BLOOD SPECIMEN Ordering Facility: [facility] Address: [address] [place] [address] Performed By: #### 2 857-1 #### [facility] CLIA [id number] [address] [place] [address] [place] Lymphocytes (Bld) [#/Vol] 2.09 10*3/uL Normal 1.00-4.00 [facility] Comment on above: Order Comment: Speci men Type: BLOOD SPECIMEN Ordering Facility: [facility] Address: [address] [place] [address] Performed By: #### 2 857-1 #### [facility] CLIA [id number] [address] [place] [address] [place] Lymphocytes/100 WBC (Bld) 29.5 % Normal [facility] Comment on above: Order Comment: Speci men Type: BLOOD SPECIMEN Ordering Facility: [facility] Address: [address] [place] [address] Performed By: #### 2 857-1 #### [facility] CLIA [id number] [address] [place] [address] [place] MCH (RBC) [Entitic mass] 32.5 pg Normal 26.0-34.0 [facility] Comment on above: Order Comment: Speci men Type: BLOOD SPECIMEN Ordering Facility: [facility] Address: [address] [place] [address] Performed By: #### 2 857-1 #### [facility] CLIA [id number] [address] [place] [address] [place] MCHC (RBC) [Mass/Vol] 34.0 g/dL Normal 30.5-36.0 [facility] Comment on above: Order Comment: Speci men Type: BLOOD SPECIMEN Ordering Facility: [facility] Address: [address] [place] [address] Performed By: #### 2 857-1 #### [facility] CLIA [id number] [address] [place] [address] [place] MCV (RBC) [Entitic vol] 95.7 fL Normal 80.0-100.0 [facility] Comment on above: Order Comment: Speci men Type: BLOOD SPECIMEN Ordering Facility: [facility] Address: [address] [place] [address] Performed By: #### 2 857-1 #### [facility] CLIA [id number] [address] [place] [address] [place] Monocytes (Bld) [#/Vol] 0.68 10*3/uL Normal <0.87 [facility] Comment on above: Order Comment: Speci men Type: BLOOD SPECIMEN Ordering Facility: [facility] Address: [address] [place] [address] Performed By: #### 2 857-1 #### [facility] CLIA [id number] [address] [place] [address] [place] Monocytes/100 WBC (Bld) 9.6 % Normal [facility] Comment on above: Order Comment: Speci men Type: BLOOD SPECIMEN Ordering Facility: [facility] Address: [address] [place] [address] Performed By: #### 2 857-1 #### [facility] CLIA [id number] [address] [place] [address] [place] Neutrophils (Bld) [#/Vol] 3.70 10*3/uL Normal 1.45-7.50 [facility] Comment on above: Order Comment: Speci men Type: BLOOD SPECIMEN Ordering Facility: [facility] Address: [address] [place] [address] Performed By: #### 2 857-1 #### [facility] CLIA [id number] [address] [place] [address] [place] Neutrophils/100 WBC (Bld) 52.2 % Normal [facility] Comment on above: Order Comment: Speci men Type: BLOOD SPECIMEN Ordering Facility: [facility] Address: [address] [place] [address] Performed By: #### 2 857-1 #### [facility] CLIA [id number] [address] [place] [address] [place] Nucleated RBC (Bld) [#/Vol] 10*3/uL Normal <0.01 [facility] Comment on above: Order Comment: Speci men Type: BLOOD SPECIMEN Ordering Facility: [facility] Address: [address] [place] [address] Performed By: #### 2 857-1 #### [facility] CLIA [id number] [address] [place] [address] [place] Nucleated RBC/100 WBC (Bld) [Ratio] 0.0 /100 WBC Normal [facility] Comment on above: Order Comment: Speci men Type: BLOOD SPECIMEN Ordering Facility: [facility] Address: [address] [place] [address] Performed By: #### 2 857-1 #### [facility] CLIA [id number] [address] [place] [address] [place] Platelet mean volume (Bld) [Entitic vol] 10.1 fL Normal 9.0-12.7 [facility] Comment on above: Order Comment: Speci men Type: BLOOD SPECIMEN Ordering Facility: [facility] Address: [address] [place] [address] Performed By: #### 2 857-1 #### [facility] CLIA [id number] [address] [place] [address] [place] Platelets (Bld) [#/Vol] 204 10*3/uL Normal 150-400 [facility] Comment on above: Order Comment: Speci men Type: BLOOD SPECIMEN Ordering Facility: [facility] Address: [address] [place] [address] Performed By: #### 2 857-1 #### [facility] CLIA [id number] [address] [place] [address] [place] RBC (Bld) [#/Vol] 3.69 10*6/uL Low 4.20-6.00 [facility] Comment on above: Order Comment: Speci men Type: BLOOD SPECIMEN Ordering Facility: [facility] Address: [address] [place] [address] Performed By: #### 2 857-1 #### [facility] CLIA [id number] [address] [place] [address] [place] WBC (Bld) [#/Vol] 7.09 10*3/uL Normal 3.70-11.00 [facility] Comment on above: Order Comment: Speci men Type: BLOOD SPECIMEN Ordering Facility: [facility] Address: [address] [place] [address] Performed By: #### 2 857-1 #### [facility] CLIA [id number] [address] [place] [address] [place] Comprehensive metabolic 2000 panelon 2025 Albumin [Mass/Vol] 4.2 g/dL Normal 3.9-4.9 [facility] Comment on above: Order Comment: Speci men Type: BLOOD SPECIMEN Ordering Facility: [facility] Address: [address] [place] [address] Performed By: #### 2 857-1 #### [facility] CLIA [id number] [address] [place] [address] [place] ALP [Catalytic activity/Vol] 73 U/L Normal 38-113 [facility] Comment on above: Order Comment: Speci men Type: BLOOD SPECIMEN Ordering Facility: [facility] Address: [address] [place] [address] Performed By: #### 2 857-1 #### [facility] CLIA [id number] [address] [place] [address] [place] ALT [Catalytic activity/Vol] 16 U/L Normal 10-54 [facility] Comment on above: Order Comment: Speci men Type: BLOOD SPECIMEN Ordering Facility: [facility] Address: [address] [id number] Performed By: #### 2 857-1 #### [facility] CLIA [id number] [address] [place] [address] [place] Anion gap [Moles/Vol] 10 mmol/L Normal 8-15 [facility] Comment on above: Order Comment: Speci men Type: BLOOD SPECIMEN Ordering Facility: [facility] Address: [address] [place] [address] Performed By: #### 2 857-1 #### [facility] CLIA [id number] [address] [place] [address] [place] AST [Catalytic activity/Vol] 17 U/L Normal 14-40 [facility] Comment on above: Order Comment: Speci men Type: BLOOD SPECIMEN Ordering Facility: [facility] Address: [address] [place] [address] Performed By: #### 2 857-1 #### [facility] CLIA [id number] [address] [place], [place] [address] [place] Bilirubin [Mass/Vol] 0.6 mg/dL Normal 0.2-1.3 [facility] Comment on above: Order Comment: Speci men Type: BLOOD SPECIMEN Ordering Facility: [facility] Address: [address] [place] [address] Performed By: #### 2 857-1 #### [facility] CLIA [id number] [address] [place], [place] [address] [place] Calcium [Mass/Vol] 9.3 mg/dL Normal 8.5-10.2 [facility] Comment on above: Order Comment: Speci men Type: BLOOD SPECIMEN Ordering Facility: [facility] Address: [address] [place] [address] Performed By: #### 2 857-1 #### [facility] CLIA [id number] [address] [place], [place] [address] [place] Chloride [Moles/Vol] 101 mmol/L Normal 98-107 [facility] Comment on above: Order Comment: Speci men Type: BLOOD SPECIMEN Ordering Facility: [facility] Address: [address] [place] [address] Performed By: #### 2 857-1 #### [facility] CLIA [id number] [address] [place] [address] [place] CO2 [Moles/Vol] 25 mmol/L Normal 22-30 [facility] Comment on above: Order Comment: Speci men Type: BLOOD SPECIMEN Ordering Facility: [facility] Address: [address] [place] [address] Performed By: #### 2 857-1 #### [facility] CLIA [id number] [address] [place] [address] [place] Creatinine [Mass/Vol] 0.68 mg/dL Low 0.73-1.22 [facility] Comment on above: Order Comment: Speci men Type: BLOOD SPECIMEN Ordering Facility: [facility] Address: [address] [place] [address] Performed By: #### 2 857-1 #### [facility] CLIA [id number] [address] [place] [address] [place] eGFRcr SerPlBld CKD-EPI 2020 95 mL/min/1.73m??? Normal >=60 [facility] Comment on above: Order Comment: Speci men Type: BLOOD SPECIMEN Ordering Facility: [facility] Address: [address] [place] [address] Result Comment: Renae mated Glomerular Filtration Rate [...] GFR. Performed By: #### 2 857-1 #### [facility] CLIA [id number] [address] [place] [address] [place] Glucose [Mass/Vol] 122 mg/dL High 74-99 [facility] Comment on above: Order Comment: Speci men Type: BLOOD SPECIMEN Ordering Facility: [facility] Address: [address] [place] [address] Result Comment: The [place] [employer] (ADA) provides guidance for cutoff [...] Standards of Medical Care in Diabetes 2016, [place] [employer]. Diabetes Care. 2016.39(Suppl 1). Performed By: #### 2 857-1 #### [facility] CLIA [id number] [address] [place] [address] [place] Potassium [Moles/Vol] 4.5 mmol/L Normal 3.7-5.1 [facility] Comment on above: Order Comment: Speci men Type: BLOOD SPECIMEN Ordering Facility: [facility] Address: [address] [place] [address] Performed By: #### 2 857-1 #### [facility] CLIA [id number] [address] [place] [address] [place] Protein [Mass/Vol] 6.4 g/dL Normal 6.3-8.0 [facility] Comment on above: Order Comment: Speci men Type: BLOOD SPECIMEN Ordering Facility: [facility] Address: [address] [place], [place] [address] Performed By: #### 2 857-1 #### [facility] CLIA [id number] [address] [place] [address] [place] Sodium [Moles/Vol] 136 mmol/L Normal 136-144 [facility] Comment on above: Order Comment: Speci men Type: BLOOD SPECIMEN Ordering Facility: [facility] Address: [address] [place] [address] Performed By: #### 2 857-1 #### [facility] CLIA [id number] [address] [place] [address] [place] Urea nitrogen [Mass/Vol] 14 mg/dL Normal 9-24 [facility] Comment on above: Order Comment: Speci men Type: BLOOD SPECIMEN Ordering Facility: [facility] Address: [address] [place] [address] Performed By: #### 2 857-1 #### [facility] CLIA [id number] [address] [place] [address] [place] PSA SerPl-ncon 2025 Prostate specific Ag [Mass/Vol] 0.26 ng/mL Normal <2.60 [facility] Comment on above: Order Comment: Speci men Type: BLOOD SPECIMEN Ordering Facility: [facility] Address: [address] [place] [address] Result Comment: Tota l PSA test methodology used is the Electrochemiluminescence Immunoassay by [employer]. Total PSA values by differing methodologies cannot be interchanged. Performed By: #### 2 857-1 #### [facility] CLIA [id number] [address] [place] [address] [place] CNOVSPon 11-07-2024 CNOVSP Visit (SP) Office ([facility]) PABLO FELIX ([id number]) 1945 M Date Time Provider Department 11/07/24 [...] OTHER PHYSICIANS: Dr. Anthony Scruggs, Dr. Khan, [facility] Cardiology Portions of this encounter [...] mg 24 hr tablet Take by mouth. 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 Left base margin positive for neoplasm. Seminal vesicles with no diagnostic abnormality. 2 resected lymph nodes negative for neoplasm. LABS: Hemoglobin (g/dL) Date Value 10/31/2024 12.4 05/08/2018 12.8 Hem (more content not included)... Normal [facility] CBC W Auto Differential pane l (Bld)on 10-31-2024 Basophils (Bld) [#/Vol] 0.05 10*3/uL Normal <0.11 [facility] Comment on above: Order Comment: Speci men Type: BLOOD SPECIMEN Ordering Facility: [facility] Address: [address] [place] [address] Performed By: #### 5 7021-8 #### [facility] CLIA [id number] [address] [place] [address] Basophils/100 WBC (Bld) 0.7 % Normal [facility] [facility] Comment on above: Order Comment: Speci men Type: BLOOD SPECIMEN Ordering Facility: [facility] Address: [address] [place] [address] Performed By: #### 5 7021-8 #### [facility] CLIA [id number] [address] [place] [address]2547 Differential cell count method Nom (Bld) Auto Normal [facility] Comment on above: Order Comment: Speci men Type: BLOOD SPECIMEN Ordering Facility: [facility] Address: [address] [place] [address] Performed By: #### 5 7021-8 #### [facility] CLIA [id number] [address] [place] [address] 96877 Eosinophils (Bld) [#/Vol] 0.51 10*3/uL High <0.46 [facility] Comment on above: Order Comment: Speci men Type: BLOOD SPECIMEN Ordering Facility: [facility] Address: [address] [place] [address] Performed By: #### 5 7021-8 #### [facility] CLIA [id number] [address] [place] [address] Eosinophils/100 WBC (Bld) 7.3 % Normal [facility] Comment on above: Order Comment: Speci men Type: BLOOD SPECIMEN Ordering Facility: [facility] Address: [address] [place] [address] Performed By: #### 5 7021-8 #### [facility] CLIA [id number] [address] [place] [address] 67606 Erythrocyte distribution width (RBC) [Ratio] 12.9 % Normal 11.5-15.0 [facility] Comment on above: Order Comment: Speci men Type: BLOOD SPECIMEN Ordering Facility: [facility] Address: [address] [place] [address] Performed By: #### 5 7021-8 #### [facility] CLIA [id number] [address] [place] [address]88 Hematocrit (Bld) [Volume fraction] 36.0 % Low 39.0-51.0 [facility] Comment on above: Order Comment: Speci men Type: BLOOD SPECIMEN Ordering Facility: [facility] Address: [address] [place] [address] Performed By: #### 5 7021-8 #### [facility] CLIA [id number] [address] [place] [address] 26544 Hemoglobin (Bld) [Mass/Vol] 12.4 g/dL Low 13.0-17.0 [facility] Comment on above: Order Comment: Speci men Type: BLOOD SPECIMEN Ordering Facility: [facility] Address: [address] [place] [address] Performed By: #### 5 7021-8 #### [facility] CLIA [id number] [address] [place] [address]149 Immature granulocytes (Bld) [#/Vol] 0.04 10*3/uL Normal <0.10 [facility] Comment on above: Order Comment: Speci men Type: BLOOD SPECIMEN Ordering Facility: [facility] Address: [address] [place] [address] Performed By: #### 5 7021-8 #### [facility] CLIA [id number] [address] [place] [address] 39607 Immature granulocytes/100 WBC (Bld) 0.6 % Normal [facility] Comment on above: Order Comment: Speci men Type: BLOOD SPECIMEN Ordering Facility: [facility] Address: [address] [place] [address] Performed By: #### 5 7021-8 #### [facility] CLIA [id number] [address] [place] [address] 18907 Lymphocytes (Bld) [#/Vol] 1.80 10*3/uL Normal 1.00-4.00 [facility] Comment on above: Order Comment: Speci men Type: BLOOD SPECIMEN Ordering Facility: [facility] Address: [address] [place] [address] Performed By: #### 5 7021-8 #### [facility] CLIA [id number] [address] [place] [address] 85186 Lymphocytes/100 WBC (Bld) 25.8 % Normal [facility] Comment on above: Order Comment: Speci men Type: BLOOD SPECIMEN Ordering Facility: [facility] Address: [address] [place] [address] Performed By: #### 5 7021-8 #### [facility] CLIA [id number] [address] [place] [address] 69892 MCH (RBC) [Entitic mass] 32.2 pg Normal 26.0-34.0 [facility] Comment on above: Order Comment: Speci men Type: BLOOD SPECIMEN Ordering Facility: [facility] Address: [address] [place] [address] Performed By: #### 5 7021-8 #### [facility] CLIA [id number] [address] [place] [address] 79809 MCHC (RBC) [Mass/Vol] 34.4 g/dL Normal 30.5-36.0 [facility] Comment on above: Order Comment: Speci men Type: BLOOD SPECIMEN Ordering Facility: [facility] Address: [facility] [place] [address] Performed By: #### 5 7021-8 #### [facility] CLIA [id number] [address] [place] [address] 83309 MCV (RBC) [Entitic vol] 93.5 fL Normal 80.0-100.0 [facility] Comment on above: Order Comment: Speci men Type: BLOOD SPECIMEN Ordering Facility: [facility] Address: [address] [place] [address] Performed By: #### 5 7021-8 #### [facility] CLIA [id number] [address] [place] [address] 93365 Monocytes (Bld) [#/Vol] 0.69 10*3/uL Normal <0.87 [facility] Comment on above: Order Comment: Speci men Type: BLOOD SPECIMEN Ordering Facility: [facility] Address: [address] [place] [address] Performed By: #### 5 7021-8 #### [facility] CLIA [id number] [address] [place] [address] 41651 Monocytes/100 WBC (Bld) 9.9 % Normal [facility] Comment on above: Order Comment: Speci men Type: BLOOD SPECIMEN Ordering Facility: [facility] Address: [address] [place] [address] Performed By: #### 5 7021-8 #### [facility] CLIA [id number] [address] [place] [address] 68713 Neutrophils (Bld) [#/Vol] 3.90 10*3/uL Normal 1.45-7.50 [facility] Comment on above: Order Comment: Speci men Type: BLOOD SPECIMEN Ordering Facility: [facility] Address: [address] [place] [address]68 Performed By: #### 5 7021-8 #### [facility] CLIA [id number] [address] [place] [address] Neutrophils/100 WBC (Bld) 55.7 % Normal [facility] Comment on above: Order Comment: Speci men Type: BLOOD SPECIMEN Ordering Facility: [facility] Address: [address] [place] [address] Performed By: #### 5 7021-8 #### [facility] CLIA [id number] [address] [place] [address] Nucleated RBC (Bld) [#/Vol] 10*3/uL Normal <0.01 [facility] Comment on above: Order Comment: Speci men Type: BLOOD SPECIMEN Ordering Facility: [facility] Address: [address] [place] [address] Performed By: #### 5 7021-8 #### [facility] CLIA [id number] [address] [place] [address] 67945 Nucleated RBC/100 WBC (Bld) [Ratio] 0.0 /100 WBC Normal [facility] Comment on above: Order Comment: Speci men Type: BLOOD SPECIMEN Ordering Facility: [facility] Address: [address] [place] [address] Performed By: #### 5 7021-8 #### [facility] CLIA [id number] [address] [place] [address] 44283 Platelet mean volume (Bld) [Entitic vol] 9.8 fL Normal 9.0-12.7 [facility] Comment on above: Order Comment: Speci men Type: BLOOD SPECIMEN Ordering Facility: [facility] Address: [address] [place] [address] Performed By: #### 5 7021-8 #### [facility] CLIA [id number] [address] [place] [address] 58943 Platelets (Bld) [#/Vol] 204 10*3/uL Normal 150-400 [facility] Comment on above: Order Comment: Speci men Type: BLOOD SPECIMEN Ordering Facility: [facility] Address: [address] [place] [address] Performed By: #### 5 7021-8 #### [facility] CLIA [id number] [address] [place] [address] 06219 RBC (Bld) [#/Vol] 3.85 10*6/uL Low 4.20-6.00 [facility] Comment on above: Order Comment: Speci men Type: BLOOD SPECIMEN Ordering Facility: [facility] Address: [address] [place] [address] Performed By: #### 5 7021-8 #### [facility] CLIA [id number] [address] [place] [address] 04451 WBC (Bld) [#/Vol] 6.99 10*3/uL Normal 3.70-11.00 [facility] Comment on above: Order Comment: Speci men Type: BLOOD SPECIMEN Ordering Facility: [facility] Address: [address] [place] [address] Performed By: #### 5 7021-8 #### [facility] CLIA [id number] [address] [place] [address] 94004 Comprehensive metabolic 2000 panelon 10-31-2024 Albumin [Mass/Vol] 4.1 g/dL Normal 3.9-4.9 [facility] Comment on above: Order Comment: Speci men Type: BLOOD SPECIMEN Ordering Facility: [facility] Address: [address] [place] [address] Performed By: #### 2 857-1 #### [facility] CLIA [id number] [address] [place] [address] [place] ALP [Catalytic activity/Vol] 84 U/L Normal 38-113 [facility] Comment on above: Order Comment: Speci men Type: BLOOD SPECIMEN Ordering Facility: [facility] Address: [address] [place] [address] Performed By: #### 2 857-1 #### [facility] CLIA [id number] [address] [place] [address] [place] ALT [Catalytic activity/Vol] 18 U/L Normal 10-54 [facility] Comment on above: Order Comment: Speci men Type: BLOOD SPECIMEN Ordering Facility: [facility] Address: [address] [place] [address] Performed By: #### 2 857-1 #### [facility] CLIA [id number] [address] [place] [address] [place] Anion gap [Moles/Vol] 12 mmol/L Normal 8-15 [facility] Comment on above: Order Comment: Speci men Type: BLOOD SPECIMEN Ordering Facility: [facility] Address: [address] [place] [address] Performed By: #### 2 857-1 #### [facility] CLIA [id number] [address] [place] [address] [place] AST [Catalytic activity/Vol] 18 U/L Normal 14-40 [facility] Comment on above: Order Comment: Speci men Type: BLOOD SPECIMEN Ordering Facility: [facility] Address: [address] [place] [address] Performed By: #### 2 857-1 #### [facility] CLIA [id number] [address] [place] [address] [place] Bilirubin [Mass/Vol] 0.5 mg/dL Normal 0.2-1.3 [facility] Comment on above: Order Comment: Speci men Type: BLOOD SPECIMEN Ordering Facility: [facility] Address: [address] [place], [place] [address] Performed By: #### 2 857-1 #### [facility] CLIA [id number] [address] [place] [address] [place] Calcium [Mass/Vol] 10.1 mg/dL Normal 8.5-10.2 [facility] Comment on above: Order Comment: Speci men Type: BLOOD SPECIMEN Ordering Facility: [facility] Address: [address] [place], [place] [address] Performed By: #### 2 857-1 #### [facility] CLIA [id number] [address] [place] [address] [place] Chloride [Moles/Vol] 101 mmol/L Normal 98-107 [facility] Comment on above: Order Comment: Speci men Type: BLOOD SPECIMEN Ordering Facility: [facility] Address: [address] [place] [address] Performed By: #### 2 857-1 #### [facility] CLIA [id number] [address] [place] [address] [place] CO2 [Moles/Vol] 24 mmol/L Normal 22-30 [facility] Comment on above: Order Comment: Speci men Type: BLOOD SPECIMEN Ordering Facility: [facility] Address: [address] [place] [address] Performed By: #### 2 857-1 #### [facility] CLIA [id number] [address] [place] [address] [place] Creatinine [Mass/Vol] 0.88 mg/dL Normal 0.73-1.22 [facility] Comment on above: Order Comment: Speci men Type: BLOOD SPECIMEN Ordering Facility: [facility] Address: [address] [place] [address] Performed By: #### 2 857-1 #### [facility] CLIA [id number] [address] [place] [address] [place] Creatinine and Glomerular filtration rate.predicted panel (S/P/Bld) 88 mL/min/1.73m??? Normal >=60 [facility] Comment on above: Order Comment: Speci men Type: BLOOD SPECIMEN Ordering Facility: [facility] Address: [address] [place] [address] Result Comment: Renae mated Glomerular Filtration Rate [...] GFR. Performed By: #### 2 857-1 #### [facility] CLIA [id number] [address] [place], [place] [address] [place] Glucose [Mass/Vol] 123 mg/dL High 74-99 [facility] Comment on above: Order Comment: Speci men Type: BLOOD SPECIMEN Ordering Facility: [facility] Address: [address] [place] [address] Result Comment: The [place] [employer] (ADA) provides guidance for cutoff [...] Standards of Medical Care in Diabetes 2016, [place] [employer]. Diabetes Care. 2016.39(Suppl 1). Performed By: #### 2 857-1 #### [facility] CLIA [id number] [address] [place], [place] [address] [place] Potassium [Moles/Vol] 4.6 mmol/L Normal 3.7-5.1 [facility] Comment on above: Order Comment: Nicanor camilo Type: BLOOD SPECIMEN Ordering Facility: [facility] Address: [address] [place], [place] [address] Performed By: #### 2 857-1 #### [facility] CLIA [id number] [address] [place] [address] [place] Protein [Mass/Vol] 6.5 g/dL Normal 6.3-8.0 [facility] Comment on above: Order Comment: Speci men Type: BLOOD SPECIMEN Ordering Facility: [facility] Address: [address] [place] [address] Performed By: #### 2 857-1 #### [facility] CLIA [id number] [address] [place] [address] [place] Sodium [Moles/Vol] 137 mmol/L Normal 136-144 [facility] Comment on above: Order Comment: Speci men Type: BLOOD SPECIMEN Ordering Facility: [facility] Address: [address] [place] [address] Performed By: #### 2 857-1 #### [facility] CLIA [id number] [address] [place] [address] [place] Urea nitrogen [Mass/Vol] 16 mg/dL Normal 9-24 [facility] Comment on above: Order Comment: Speci men Type: BLOOD SPECIMEN Ordering Facility: [facility] Address: [address] [place] [address] Performed By: #### 2 857-1 #### [facility] CLIA [id number] [address] [place] [address] [place] PSA SerPl-mCncon 10-31-2024 Prostate specific Ag [Mass/Vol] 0.22 ng/mL Normal <2.60 [facility] Comment on above: Order Comment: Speci men Type: BLOOD SPECIMEN Ordering Facility: [facility] Address: [address] [place] [address] Result Comment: Tota l PSA test methodology used is the Electrochemiluminescence Immunoassay by [employer]. Total PSA values by differing methodologies cannot be interchanged. Performed By: #### 2 857-1 #### [facility] CLIA [id number] [address] [place] [address] [place] Ambulatory Visit Summaryon [...] mg Tab) ipratropium nasal (ipratropium Nasal 0.06% [place]) metformin (metformin 1000 mg oral tablet) metoprolol [...] Anthony SCRUGGS MD Where: [facility] [address] [place] [address]- You Need to Schedule the Following Appointments Follow Up with Anthony SCRUGGS MD, URL When: Comments: 6 mos w/ PSA and Lupron Where: [facility] [address], [place] [address] [phone] Medications What How Much When Instructions Unchanged [...] concerns Unchanged ipratropium nasal (ipratropium Nasal 0.06% [place]) Contact prescribing physician if questions or concerns [...] prostate cancer (more content not included)... Normal [facility] Urology Office/Clinic Noteon 10-07-2024 Urology Office/Clinic Note [...] [facility] [address], [place] [address] [phone] Additional Instructions: 6 mos w/ PSA and [...] 1 tab(s), Oral, Daily ipratropium Nasal 0.06% [place] metformin 1000 mg oral tablet, Oral, BID [...] virus vacc (more content not included)... Normal [facility] Comment on above: Result Comment: Elec tronically Signed By: Anthony SCRUGGS MD\.br\Date and Time Signed: 10/07/24 10:00 EDT\.br\Electronically Co-Signed By: Jeanine Crandall.br\Date and Time Co-Signed: 10/07/24 09:59 EDT CNOVSPon 08-08-2024 [facility]OVSP Visit (SP) Office ([facility]) PABLO FELIX ([id number]) 1945 M Date Time Provider Department 08/08/24 [...] OTHER PHYSICIANS: Dr. Anthony Scruggs, Dr. Khan, [facility] Cardiology Portions of this encounter [...] mg 24 hr tablet Take by mouth. 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 Left base margin positive for neoplasm. Seminal vesicles with no diagnostic abnormality. 2 resected lymph nodes negative for neoplasm. LABS: Hemoglobin (g/dL) Date Value 08/01/2024 12.2 05/08/2018 12.8 Hematoc (more content not included)... Normal [facility] Basophils Auto (Bld) [#/Vol] on 08-01-2024 Basophils (Bld) [#/Vol] Automated basophil count <0.[address] [facility] Basophils/100 WBC Auto (Bld) on 08-01-2024 Basophils/100 WBC (Bld) Automated basophil % [facility] Blood manual differential co mment interpretation narrativeon 08-01-2024 Manual differential comment [place] (Bld) [Interp] Blood manual differential comment interpretation narrative [facility] CBC W Auto Differential pane l (Bld)on 08-01-2024 Basophils (Bld) [#/Vol] 0.03 10*3/uL [facility] Basophils/100 WBC (Bld) 0.5 % [facility] Differential cell count method Nom (Bld) Auto [facility] Eosinophils (Bld) [#/Vol] 0.5 10*3/uL High [facility] Eosinophils/100 WBC (Bld) 8.5 % [facility] Erythrocyte distribution width (RBC) [Ratio] 12.7 % 11.5 - 15.0 % [facility] Hematocrit (Bld) [Volume fraction] 35.7 % Low 39.0 - 51.0 % [facility] Hemoglobin (Bld) [Mass/Vol] 12.2 g/dL Low 13.0 - 17.0 g/dL [facility] Immature granulocytes (Bld) [#/Vol] 0.04 10*3/uL [facility] Immature granulocytes/100 WBC (Bld) 0.7 % [facility] Interpretation and review of laboratory results Abnormal [facility] Lymphocytes (Bld) [#/Vol] 1.55 10*3/uL [facility] Lymphocytes/100 WBC (Bld) 26.5 % [facility] MCH (RBC) [Entitic mass] 32.4 pg 26.0 - 34.0 pg [facility] MCHC (RBC) [Mass/Vol] 34.2 g/dL 30.5 - 36.0 g/dL [facility] MCV (RBC) [Entitic vol] 94.9 fL 80.0 - 100.0 fL [facility] Monocytes (Bld) [#/Vol] 0.55 10*3/uL [facility] Monocytes/100 WBC (Bld) 9.4 % [facility] Neutrophils (Bld) [#/Vol] 3.19 10*3/uL [facility] Neutrophils/100 WBC (Bld) 54.4 % [facility] Nucleated RBC (Bld) [#/Vol] NINF [facility] Nucleated RBC/100 WBC (Bld) [Ratio] 0 % /100 WBC [facility] Platelet mean volume (Bld) [Entitic vol] 9.4 fL 9.0 - 12.7 fL [facility] Platelets (Bld) [#/Vol] 177 10*3/uL [facility] RBC (Bld) [#/Vol] 3.76 10*6/uL Low 4.20 - 6.0 0 m/uL [facility] WBC (Bld) [#/Vol] 5.86 10*3/uL [facility] Basophils (Bld) [#/Vol] 0.03 10*3/uL Normal <0.11 [facility] Comment on above: Order Comment: Speci men Type: BLOOD SPECIMEN Ordering Facility: [facility] Address: [address] [place] [address] Performed By: #### 2 857-1 #### [facility] CLIA [id number] [address] [place] [address] [place] Basophils/100 WBC (Bld) 0.5 % Normal [facility] Comment on above: Order Comment: Speci men Type: BLOOD SPECIMEN Ordering Facility: [facility] Address: [address] [place] [address] Performed By: #### 2 857-1 #### [facility] CLIA [id number] [address] [place] [address] [place] Differential cell count method Nom (Bld) Auto Normal [facility] Comment on above: Order Comment: Speci men Type: BLOOD SPECIMEN Ordering Facility: [facility] Address: [address] [place] [address] Performed By: #### 2 857-1 #### [facility] CLIA [id number] [address] [place] [address] [place] Eosinophils (Bld) [#/Vol] 0.50 10*3/uL High <0.46 [facility] Comment on above: Order Comment: Speci men Type: BLOOD SPECIMEN Ordering Facility: [facility] Address: [address] [place] [address] Performed By: #### 2 857-1 #### [facility] CLIA [id number] [address] [place] [address] [place] Eosinophils/100 WBC (Bld) 8.5 % Normal [facility] Comment on above: Order Comment: Speci men Type: BLOOD SPECIMEN Ordering Facility: [facility] Address: [address] [place] [address] Performed By: #### 2 857-1 #### [facility] CLIA [id number] [address] [place] [address] [place] Erythrocyte distribution width (RBC) [Ratio] 12.7 % Normal 11.5-15.0 [facility] Comment on above: Order Comment: Speci men Type: BLOOD SPECIMEN Ordering Facility: [facility] Address: [address] [place] [address] Performed By: #### 2 857-1 #### [facility] CLIA [id number] [address] [place] [address] [place] Hematocrit (Bld) [Volume fraction] 35.7 % Low 39.0-51.0 [facility] Comment on above: Order Comment: Speci men Type: BLOOD SPECIMEN Ordering Facility: [facility] Address: [address] [place] [address] Performed By: #### 2 857-1 #### [facility] CLIA [id number] [address] [place] [address] [place] Hemoglobin (Bld) [Mass/Vol] 12.2 g/dL Low 13.0-17.0 [facility] [facility] Comment on above: Order Comment: Speci men Type: BLOOD SPECIMEN Ordering Facility: [facility] Address: [address] [place] [address] Performed By: #### 2 857-1 #### [facility] CLIA [id number] [address] [place] [address] [place] Immature granulocytes (Bld) [#/Vol] 0.04 10*3/uL Normal <0.10 [facility] Comment on above: Order Comment: Speci men Type: BLOOD SPECIMEN Ordering Facility: [facility] Address: [address] [place] [address] Performed By: #### 2 857-1 #### [facility] CLIA [id number] [address] [place] [address] [place] Immature granulocytes/100 WBC (Bld) 0.7 % Normal [facility] Comment on above: Order Comment: Speci men Type: BLOOD SPECIMEN Ordering Facility: [facility] Address: [address] [place] [address] Performed By: #### 2 857-1 #### [facility] CLIA [id number] [address] [place] [address] [place] Lymphocytes (Bld) [#/Vol] 1.55 10*3/uL Normal 1.00-4.00 [facility] Comment on above: Order Comment: Speci men Type: BLOOD SPECIMEN Ordering Facility: [facility] Address: [address] [place] [address] Performed By: #### 2 857-1 #### [facility] CLIA [id number] [address] [place] [address] [place] Lymphocytes/100 WBC (Bld) 26.5 % Normal [facility] Comment on above: Order Comment: Speci men Type: BLOOD SPECIMEN Ordering Facility: [facility] Address: [address] [place] [address] Performed By: #### 2 857-1 #### [facility] CLIA [id number] [address] [place] [address] [place] MCH (RBC) [Entitic mass] 32.4 pg Normal 26.0-34.0 [facility] Comment on above: Order Comment: Speci men Type: BLOOD SPECIMEN Ordering Facility: [facility] Address: [address] [place] [address] Performed By: #### 2 857-1 #### [facility] CLIA [id number] [address] [place] [address] [place] MCHC (RBC) [Mass/Vol] 34.2 g/dL Normal 30.5-36.0 [facility] Comment on above: Order Comment: Speci men Type: BLOOD SPECIMEN Ordering Facility: [facility] Address: [address] [place] [address] Performed By: #### 2 857-1 #### [facility] CLIA [id number] [address] [place] [address] [place] MCV (RBC) [Entitic vol] 94.9 fL Normal 80.0-100.0 [facility] Comment on above: Order Comment: Speci men Type: BLOOD SPECIMEN Ordering Facility: [facility] Address: [address] [place] [address] Performed By: #### 2 857-1 #### [facility] CLIA [id number] [address] [place] [address] [place] Monocytes (Bld) [#/Vol] 0.55 10*3/uL Normal <0.87 [facility] Comment on above: Order Comment: Speci men Type: BLOOD SPECIMEN Ordering Facility: [facility] Address: [address] [place] [address] Performed By: #### 2 857-1 #### [facility] CLIA [id number] [address] [place] [address] [place] Monocytes/100 WBC (Bld) 9.4 % Normal [facility] Comment on above: Order Comment: Speci men Type: BLOOD SPECIMEN Ordering Facility: [facility] Address: [address] [place] [address] Performed By: #### 2 857-1 #### [facility] CLIA [id number] [address] [place] [address] [place] Neutrophils (Bld) [#/Vol] 3.19 10*3/uL Normal 1.45-7.50 [facility] Comment on above: Order Comment: Speci men Type: BLOOD SPECIMEN Ordering Facility: [facility] Address: [address] [place] [address] Performed By: #### 2 857-1 #### [facility] CLIA [id number] [address] [place] [address] [place] Neutrophils/100 WBC (Bld) 54.4 % Normal [facility] Comment on above: Order Comment: Speci men Type: BLOOD SPECIMEN Ordering Facility: [facility] Address: [address] [place] [address] Performed By: #### 2 857-1 #### [facility] CLIA [id number] [address] [place] [address] [place] Nucleated RBC (Bld) [#/Vol] 10*3/uL Normal <0.01 [facility] Comment on above: Order Comment: Speci men Type: BLOOD SPECIMEN Ordering Facility: [facility] Address: [address] [place] [address] Performed By: #### 2 857-1 #### [facility] CLIA [id number] [address] [place] [address] [place] Nucleated RBC/100 WBC (Bld) [Ratio] 0.0 /100 WBC Normal [facility] Comment on above: Order Comment: Speci men Type: BLOOD SPECIMEN Ordering Facility: [facility] Address: [address] [place] [address] Performed By: #### 2 857-1 #### [facility] CLIA [id number] [address] [place] [address] [place] Platelet mean volume (Bld) [Entitic vol] 9.4 fL Normal 9.0-12.7 [facility] Comment on above: Order Comment: Speci men Type: BLOOD SPECIMEN Ordering Facility: [facility] Address: [address] [place] [address] Performed By: #### 2 857-1 #### [facility] CLIA [id number] [address] [place] [address] [place] Platelets (Bld) [#/Vol] 177 10*3/uL Normal 150-400 [facility] Comment on above: Order Comment: Speci men Type: BLOOD SPECIMEN Ordering Facility: [facility] Address: [address] [place] [address] Performed By: #### 2 857-1 #### [facility] CLIA [id number] [address] [place] [address] [place] RBC (Bld) [#/Vol] 3.76 10*6/uL Low 4.20-6.00 [facility] Comment on above: Order Comment: Speci men Type: BLOOD SPECIMEN Ordering Facility: [facility] Address: [address] [place] [address] Performed By: #### 2 857-1 #### [facility] CLIA [id number] [address] [place] [address] [place] WBC (Bld) [#/Vol] 5.86 10*3/uL Normal 3.70-11.00 [facility] Comment on above: Order Comment: Speci men Type: BLOOD SPECIMEN Ordering Facility: [facility] Address: [address] [place] [address] Performed By: #### 2 857-1 #### [facility] CLIA [id number] [address] [place] [address] [facility] Comprehensive metabolic 2000 panelOrdered By: Liza Lilly on 08-01-2024 Albumin [Mass/Vol] 4.2 g/dL 3.9 - 4.9 g/dL [facility] ALP [Catalytic activity/Vol] 75 U/L 38 - 113 U/L [facility] ALT [Catalytic activity/Vol] 17 U/L 10 - 54 U/L [facility] Anion gap [Moles/Vol] 11 mmol/L 8 - 15 mmol/L [facility] AST [Catalytic activity/Vol] 17 U/L 14 - 40 U/L [facility] Bilirubin [Mass/Vol] 0.6 mg/dL 0.2 - 1.3 mg/dL [facility] Calcium [Mass/Vol] 10.3 mg/dL High 8.5 - 10. 2 mg/dL [facility] Chloride [Moles/Vol] 100 mmol/L 98 - 107 mmol/L [facility] CO2 [Moles/Vol] 26 mmol/L 22 - 30 mmol/L [facility] Creatinine [Mass/Vol] 0.81 mg/dL 0.73 - 1.22 mg/dL [facility] GFR/1.73 sq M.predicted among non-blacks MDRD (S/P/Bld) [Vol rate/Area] 90 mL/min/{1.73_m2} - PINF [facility] Comment on above: Estimated Glomerular Filtration [...] 119 mg/dL High 74 - 99 mg/dL [facility] Comment on above: The [place] Diab[employer] s Association (ADA) provides guidance for [...] Standards of Medical Care in Diabetes 2016, [place] [employer]. Diabetes Care. 2016.39(Suppl 1). Interpretation and review of laboratory results Abnormal [facility] Potassium [Moles/Vol] 4.8 mmol/L 3.7 - 5.1 mmol/L [facility] Protein [Mass/Vol] 6.3 g/dL 6.3 - 8.0 g/dL [facility] Sodium [Moles/Vol] 137 mmol/L 136 - 144 mmol/L [facility] Urea nitrogen [Mass/Vol] 14 mg/dL 9 - 24 mg/dL [facility] Comprehensive metabolic 2000 panelon 08-01-2024 Albumin [Mass/Vol] 4.2 g/dL Normal 3.9-4.9 [facility] Comment on above: Order Comment: Speci ton Type: BLOOD SPECIMEN Ordering Facility: [facility] Address: [address] [place] [address] Performed By: #### 2 857-1 #### [facility] CLIA [id number] [address] [place] [address] [place] ALP [Catalytic activity/Vol] 75 U/L Normal 38-113 [facility] Comment on above: Order Comment: Speci men Type: BLOOD SPECIMEN Ordering Facility: [facility] Address: [address] [place] [address] Performed By: #### 2 857-1 #### [facility] CLIA [id number] [address] [place] [address] [place] ALT [Catalytic activity/Vol] 17 U/L Normal 10-54 [facility] Comment on above: Order Comment: Speci men Type: BLOOD SPECIMEN Ordering Facility: [facility] Address: [address] [place] [address] Performed By: #### 2 857-1 #### [facility] CLIA [id number] [address] [place] [address] [place] Anion gap [Moles/Vol] 11 mmol/L Normal 8-15 [facility] Comment on above: Order Comment: Speci men Type: BLOOD SPECIMEN Ordering Facility: [facility] Address: [address] [place] [address] Performed By: #### 2 857-1 #### [facility] CLIA [id number] [address] [place] [address] [place] AST [Catalytic activity/Vol] 17 U/L Normal 14-40 [facility] Comment on above: Order Comment: Speci men Type: BLOOD SPECIMEN Ordering Facility: [facility] Address: [address] [place] [address] Performed By: #### 2 857-1 #### [facility] CLIA [id number] [address] [place] [address] [place] Bilirubin [Mass/Vol] 0.6 mg/dL Normal 0.2-1.3 [facility] Comment on above: Order Comment: Speci men Type: BLOOD SPECIMEN Ordering Facility: [facility] Address: [address] [place] [address] Performed By: #### 2 857-1 #### [facility] CLIA [id number] [address] [place] [address] [place] Calcium [Mass/Vol] 10.3 mg/dL High 8.5-10.2 [facility] Comment on above: Order Comment: Speci men Type: BLOOD SPECIMEN Ordering Facility: [facility] Address: [address] [place] [address] Performed By: #### 2 857-1 #### [facility] CLIA [id number] [address] [place] [address] [place] Chloride [Moles/Vol] 100 mmol/L Normal 98-107 [facility] Comment on above: Order Comment: Speci men Type: BLOOD SPECIMEN Ordering Facility: [facility] Address: [address] [place] [address] Performed By: #### 2 857-1 #### [facility] CLIA [id number] [address] [place] [address] [place] CO2 [Moles/Vol] 26 mmol/L Normal 22-30 [facility] Comment on above: Order Comment: Speci men Type: BLOOD SPECIMEN Ordering Facility: [facility] Address: [address] [place] [address] Performed By: #### 2 857-1 #### [facility] CLIA [id number] [address] [place] [address] [place] Creatinine [Mass/Vol] 0.81 mg/dL Normal 0.73-1.22 [facility] Comment on above: Order Comment: Speci men Type: BLOOD SPECIMEN Ordering Facility: [facility] Address: [address] [place] [address] Performed By: #### 2 857-1 #### [facility] CLIA [id number] [address] [place] [address] [place] Creatinine and Glomerular filtration rate.predicted panel (S/P/Bld) 90 mL/min/1.73m??? Normal >=60 [facility] Comment on above: Order Comment: Speci men Type: BLOOD SPECIMEN Ordering Facility: [facility] Address: [address] [place] [address] Result Comment: Renae mated Glomerular Filtration Rate [...] GFR. Performed By: #### 2 857-1 #### [facility] CLIA [id number] [address] [place] [address] [place] Glucose [Mass/Vol] 119 mg/dL High 74-99 [facility] Comment on above: Order Comment: Speci men Type: BLOOD SPECIMEN Ordering Facility: [facility] Address: [address] [place] [address] Result Comment: The [place] Diabetes Association (ADA) provides guidance for cutoff [...] Standards of Medical Care in Diabetes 2016, [place] [employer]. Diabetes Care. 2016.39(Suppl 1). Performed By: #### 2 857-1 #### [facility] CLIA [id number] [address] [place] [address] [place] Potassium [Moles/Vol] 4.8 mmol/L Normal 3.7-5.1 [facility] Comment on above: Order Comment: Speci men Type: BLOOD SPECIMEN Ordering Facility: [facility] Address: [address] [place] [address] Performed By: #### 2 857-1 #### [facility] [place] [id number] [address] [place] [address] [place] Protein [Mass/Vol] 6.3 g/dL Normal 6.3-8.0 [facility] Comment on above: Order Comment: Speci men Type: BLOOD SPECIMEN Ordering Facility: [facility] Address: [address] [place] [address] Performed By: #### 2 857-1 #### [facility] CLIA [id number] [address] [place] [address] [place] Sodium [Moles/Vol] 137 mmol/L Normal 136-144 [facility] Comment on above: Order Comment: Speci men Type: BLOOD SPECIMEN Ordering Facility: [facility] Address: [address] [place] [address] Performed By: #### 2 857-1 #### [facility] CLIA [id number] [address] [place] [address] [place] Urea nitrogen [Mass/Vol] 14 mg/dL Normal 9-24 [facility] Comment on above: Order Comment: Speci men Type: BLOOD SPECIMEN Ordering Facility: [facility] Address: [address] [place] [address] Performed By: #### 2 857-1 #### [facility] CLIA [id number] [address] [place] [address] [place] Eosinophils/100 WBC Auto (Bl d)on 08-01-2024 Eosinophils/100 WBC (Bld) Automated eosinophil % [facility] Erythrocyte distribution wid th Auto (RBC) [Ratio]on 08-01-2024 Erythrocyte distribution width (RBC) [Ratio] Erythrocyte distribution width [Ratio] by Automated count 11.5-15.0 [facility] Hematocrit Auto (Bld) [Volum e fraction]on 08-01-2024 Hematocrit (Bld) [Volume fraction] Hematocrit [Volume Fraction] of Blood by Automated count Low 39.0-51.0 [facility] Hemoglobin [Mass/volume] in Bloodon 08-01-2024 Hemoglobin (Bld) [Mass/Vol] Hemoglobin [Mass/volume] in Blood Low 13.0-17.0 [facility] Laboratory - Chemistry and C hemistry - challengeon 08-01-2024 Albumin [Mass/Vol] 4.2 g/dL 3.9-4.9 [facility] ALP [Catalytic activity/Vol] 75 U/L 38-113 [facility] ALT [Catalytic activity/Vol] 17 U/L 10-54 [facility] AST [Catalytic activity/Vol] 17 U/L 14-40 [facility] Bilirubin [Mass/Vol] 0.6 mg/dL 0.2-1.3 [facility] Calcium [Mass/Vol] 10.3 mg/dL High 8.5-10.2 [facility] Chloride [Moles/Vol] 100 mmol/L 98-107 [facility] CO2 [Moles/Vol] 26 mmol/L 22-30 [facility] Creatinine [Mass/Vol] 0.81 mg/dL 0.73-1.22 [facility] Glucose [Mass/Vol] 119 mg/dL High 74-99 [facility] Comment on above: The [place] Diabete s Association (ADA) provides guidance for [...] Standards of Medical Care in Diabetes 2016, [place] [employer]. Diabetes Care. 2016.39(Suppl 1). Potassium [Moles/Vol] 4.8 mmol/L 3.7-5.1 [facility] Sodium [Moles/Vol] 137 mmol/L 136-144 [facility] Urea nitrogen [Mass/Vol] 14 mg/dL 9-24 [facility] Laboratory - Hematology and Cell countson 08-01-2024 Eosinophils (Bld) [#/Vol] 0.50 10*3/uL High <0.46 [facility] Immature granulocytes (Bld) [#/Vol] 0.04 10*3/uL <0.10 [facility] Immature granulocytes/100 WBC (Bld) 0.7 % [facility] Leukocytes [#/volume] correc jomar for nucleated erythrocytes in Blood by Automated counon 08-01-2024 WBC corrected for nucl RBC Auto (Bld) [#/Vol] Leukocytes [#/volume] corrected for nucleated erythrocytes in Blood by Automated coun 3.70-11.00 [facility] Lymphocytes Auto (Bld) [#/Vo l]on 08-01-2024 Lymphocytes (Bld) [#/Vol] Lymphocytes [#/volume] in Blood by Automated count 1.00-4.00 [facility] Lymphocytes/100 WBC Auto (Bl d)on 08-01-2024 Lymphocytes/100 WBC (Bld) Lymphocytes/100 leukocytes in Blood by Automated count [facility] MCH Auto (RBC) [Entitic mass ]on 08-01-2024 MCH (RBC) [Entitic mass] MCH [Entitic mass] by Automated count 26.0-34.0 [facility] MCHC Auto (RBC) [Mass/Vol]on 08-01-2024 MCHC (RBC) [Mass/Vol] MCHC [Mass/volume] by Automated count 30.5-36.0 [facility] MCV Auto (RBC) [Entitic vol] on 08-01-2024 MCV (RBC) [Entitic vol] MCV [Entitic volume] by Automated count 80.0-100.0 [facility] Monocytes Auto (Bld) [#/Vol] on 08-01-2024 Monocytes (Bld) [#/Vol] Automated blood monocyte count <0.87 [facility] Monocytes/100 WBC Auto (Bld) on 08-01-2024 Monocytes/100 WBC (Bld) Automated monocyte % [facility] Neutrophils Auto (Bld) [#/Vo l]on 08-01-2024 Neutrophils (Bld) [#/Vol] Neutrophils [#/volume] in Blood by Automated count 1.45-7.50 [facility] Neutrophils/100 WBC Auto (Bl d)on 08-01-2024 Neutrophils/100 WBC (Bld) Automated neutrophil % [facility] No Panel Informationon 08-01 Estimated GFR (CKD-EPI) 90 mL/min/1.73m??? >=60 [facility] Comment on above: Estimated Glomerular [...] GFR. Prostate Specific Antigen 0.19 ng/mL <2.60 [facility] Comment on above: Total PSA test metho dology used is the Electrochemiluminescence Immunoassay by [employer]. Total PSA values by differing methodologies cannot be interchanged. Nucleated RBC Auto (Bld) [#/ Vol]on 08-01-2024 Nucleated RBC (Bld) [#/Vol] Nucleated erythrocytes [#/volume] in Blood by Automated count <0.01 [facility] Nucleated erythrocytes [Pres ence] in Blood by Automated counton 08-01-2024 Nucleated RBC Auto Ql (Bld) Nucleated erythrocytes [Presence] in Blood by Automated count [facility] PROSTATE-SPECIFIC ANTIGEN DI AGNOSTICon 08-01-2024 Prostate specific Ag [Mass/Vol] 0.19 ng/mL NINF - 2.60 ng/mL [facility] Comment on above: Total PSA test metho dology used is the Electrochemiluminescence Immunoassay by [employer]. Total PSA values by differing methodologies cannot be interchanged. PSA SerPl-mCncon 08-01-2024 Prostate specific Ag [Mass/Vol] 0.19 ng/mL Normal <2.60 [facility] Comment on above: Order Comment: Speci men Type: BLOOD SPECIMEN Ordering Facility: [facility] Address: [address] [place] [address] Result Comment: Tota l PSA test methodology used is the Electrochemiluminescence Immunoassay by [employer]. Total PSA values by differing methodologies cannot be interchanged. Performed By: #### 5 7021-8 #### [facility] CLIA [id number] [address] [place] [address] Platelet mean volume Auto (B ld) [Entitic vol]on 08-01-2024 Platelet mean volume (Bld) [Entitic vol] Platelet mean volume [Entitic volume] in Blood by Automated count 9.0-12.7 [facility] Platelets Auto (Bld) [#/Vol] on 08-01-2024 Platelets (Bld) [#/Vol] Platelets [#/volume] in Blood by Automated count 150-400 [facility] Prostate specific Ag [Mass/V ol]on 08-01-2024 Interpretation and review of laboratory results Normal [facility] Protein [Mass/volume] in Ser um or Plasmaon 08-01-2024 Protein [Mass/Vol] Protein [Mass/volume ] in Serum or Plasma 6.3-8.0 [facility] RBC Auto (Bld) [#/Vol]on RBC (Bld) [#/Vol] Erythrocytes [#/volu me] in Blood by Automated count Low 4.20-6.00 [facility] Serum or plasma anion gap de terminationon 08-01-2024 Anion gap [Moles/Vol] Serum or plasma anion gap determination 8-15 [facility] CNPNon 07-25-2024 CNPN Telephone (LABSAN) PABLO FELIX ([id number]) 1945 M Date Time Provider Department 07/25/24 [...] Date Reviewed: 02/02/2024 Reviewed by: Lynne Rajan APRN.[employer]ALES AND SERVICE ENGINEER - Fully Assessed Reason for Visit: Lab Orders [8] Primary Visit Diagnosis:Malignant neoplasm of prostate (HCC) [C61] Order(s):COMPLETE BLOOD COUNT AND DIFFERENTIAL [SQCBCDIF] Order #: [id number] FUTURE COMPREHENSIVE METABOLIC PANEL [SQCMP] Order #: [id number] FUTURE PROSTATE-SPECIFIC ANTIGEN DIAGNOSTIC [SQPSA] Order #: [id number] FUTURE Prescriptions as of 10/16/2024 - enzalutamide (XTANDI) 40 mg tablet Take 4 tablets (160 mg) by mouth once daily. - Calcium Citrate-Vitamin D3 200 mg-6.25 mcg (250 unit) tab Take 2 tablets by mouth once daily. - metoprolol succinate ER (TOPROL XL) 25 mg 24 hr tablet Take by mouth. - Bqflbozshmxrh-Nfbkggcr-Hvmm in (MULTIVITAMIN 50 PLUS) tab Take 1 [...] Encounter Status:Closed by JOSEMANUEL BLANCHARD [facility]/16/[facility] Office (H EMASA) PABLO FELIX ([id number]) 1945 M Date Time Provider Department 05/09/24 9:15 AM MARCO A ESQUEDA During your visit today, we recorded the following information about you: Temperature Pulse Respiration Blood pressure 97.3 degrees 62/minute 16/minute 141/62 Weight 92.1 kg Marco A Esqueda MD 05/10/2024 7:40 AM Signed PATIENT NAME: Pablo Felix DATE: 05/09/2024 PRIMARY CARE PHYSICIAN: Dr. Jamar Fall OTHER PHYSICIANS: Dr. Anthony Scruggs, Dr. Khan, [facility] Cardiology Portions of this encounter [...] mg 24 hr tablet Take by mouth. 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 Left base margin positive for neoplasm. Seminal vesicles with no diagnostic abnormality. 2 resected lymph nodes negative for neoplasm. LABS: Hemoglobin (g/dL) Date Value 05/03/2024 11.5 05/08/2018 12.8 Hematocrit (%) Date Value 05/03/2024 33.2 05/08/2018 36.8 WBC (k/uL) Date Value 1 (more content not included)... Normal [facility] CBC W Auto Differential pane l (Bld)on 05-03-2024 Basophils (Bld) [#/Vol] 0.03 10*3/uL Normal <0.11 [facility] Comment on above: Order Comment: Speci men Type: BLOOD SPECIMEN Ordering Facility: [facility] Address: [address] [place] [address] Performed By: #### 2 857-1 #### [facility] CLIA [id number] [address] [place] [address] [place] Basophils/100 WBC (Bld) 0.5 % Normal [facility] Comment on above: Order Comment: Speci men Type: BLOOD SPECIMEN Ordering Facility: [facility] Address: [address] [place] [address] Performed By: #### 2 857-1 #### [facility] CLIA [id number] [address] [place] [address] [place] Differential cell count method Nom (Bld) Auto Normal [facility] Comment on above: Order Comment: Speci men Type: BLOOD SPECIMEN Ordering Facility: [facility] Address: [address] [place] [address] Performed By: #### 2 857-1 #### [facility] CLIA [id number] [address] [place] [address] [place] Eosinophils (Bld) [#/Vol] 0.48 10*3/uL High <0.46 [facility] Comment on above: Order Comment: Speci men Type: BLOOD SPECIMEN Ordering Facility: [facility] Address: [address] [place] [address] Performed By: #### 2 857-1 #### [facility] CLIA [id number] [address] [place] [address] [place] Eosinophils/100 WBC (Bld) 8.0 % Normal [facility] Comment on above: Order Comment: Speci men Type: BLOOD SPECIMEN Ordering Facility: [facility] Address: [address] [place] [address] Performed By: #### 2 857-1 #### [facility] CLIA [id number] [address] [place] [address] [place] Erythrocyte distribution width (RBC) [Ratio] 12.6 % Normal 11.5-15.0 [facility] Comment on above: Order Comment: Speci men Type: BLOOD SPECIMEN Ordering Facility: [facility] Address: [address] [place] [address] Performed By: #### 2 857-1 #### [facility] CLIA [id number] [address] [place] [address] [place] Hematocrit (Bld) [Volume fraction] 33.2 % Low 39.0-51.0 [facility] Comment on above: Order Comment: Speci men Type: BLOOD SPECIMEN Ordering Facility: [facility] Address: [address] [place] [address] Performed By: #### 2 857-1 #### [facility] CLIA [id number] [address] [place] [address] [place] Hemoglobin (Bld) [Mass/Vol] 11.5 g/dL Low 13.0-17.0 [facility] Comment on above: Order Comment: Speci men Type: BLOOD SPECIMEN Ordering Facility: [facility] Address: [address] [place] [address] Performed By: #### 2 857-1 #### [facility] CLIA [id number] [address] [place] [address] [place] Immature granulocytes (Bld) [#/Vol] 0.04 10*3/uL Normal <0.10 [facility] Comment on above: Order Comment: Speci men Type: BLOOD SPECIMEN Ordering Facility: [facility] Address: [address] [place] [address] Performed By: #### 2 857-1 #### [facility] CLIA [id number] [address] [place] [address] [place] Immature granulocytes/100 WBC (Bld) 0.7 % Normal [facility] Comment on above: Order Comment: Speci men Type: BLOOD SPECIMEN Ordering Facility: [facility] Address: [address] [place] [address] Performed By: #### 2 857-1 #### [facility] CLIA [id number] [address] [place] [address] [place] Lymphocytes (Bld) [#/Vol] 1.76 10*3/uL Normal 1.00-4.00 [facility] Comment on above: Order Comment: Speci men Type: BLOOD SPECIMEN Ordering Facility: [facility] Address: [address] [place] [address] Performed By: #### 2 857-1 #### [facility] CLIA [id number] [address] [place] [address] [place] Lymphocytes/100 WBC (Bld) 29.4 % Normal [facility] Comment on above: Order Comment: Speci men Type: BLOOD SPECIMEN Ordering Facility: [facility] Address: [address] [place] [address] Performed By: #### 2 857-1 #### [facility] CLIA [id number] [address] [place] [address] [place] MCH (RBC) [Entitic mass] 33.0 pg Normal 26.0-34.0 [facility] Comment on above: Order Comment: Speci men Type: BLOOD SPECIMEN Ordering Facility: [facility] Address: [address] [place] [address] Performed By: #### 2 857-1 #### [facility] CLIA [id number] [address] [place] [address] [place] MCHC (RBC) [Mass/Vol] 34.6 g/dL Normal 30.5-36.0 [facility] Comment on above: Order Comment: Speci men Type: BLOOD SPECIMEN Ordering Facility: [facility] Address: [address] [place] [address] Performed By: #### 2 857-1 #### [facility] CLIA [id number] [address] [place] [address] [place] MCV (RBC) [Entitic vol] 95.1 fL Normal 80.0-100.0 [facility] Comment on above: Order Comment: Speci men Type: BLOOD SPECIMEN Ordering Facility: [facility] Address: [address] [place] [address] Performed By: #### 2 857-1 #### [facility] CLIA [id number] [address] [place] [address] [place] Monocytes (Bld) [#/Vol] 0.48 10*3/uL Normal <0.87 [facility] Comment on above: Order Comment: Speci men Type: BLOOD SPECIMEN Ordering Facility: [facility] Address: [address] [place] [address] Performed By: #### 2 857-1 #### [facility] CLIA [id number] [address] [place] [address] [place] Monocytes/100 WBC (Bld) 8.0 % Normal [facility] Comment on above: Order Comment: Speci men Type: BLOOD SPECIMEN Ordering Facility: [facility] Address: [address] [place] [address] Performed By: #### 2 857-1 #### [facility] CLIA [id number] [address] [place] [address] [place] Neutrophils (Bld) [#/Vol] 3.19 10*3/uL Normal 1.45-7.50 [facility] Comment on above: Order Comment: Speci men Type: BLOOD SPECIMEN Ordering Facility: [facility] Address: [address] [place] [address] Performed By: #### 2 857-1 #### [facility] CLIA [id number] [address] [place] [address] [place] Neutrophils/100 WBC (Bld) 53.4 % Normal [facility] Comment on above: Order Comment: Speci men Type: BLOOD SPECIMEN Ordering Facility: [facility] Address: [address] [place] [address] Performed By: #### 2 857-1 #### [facility] CLIA [id number] [address] [place] [address] [place] Nucleated RBC (Bld) [#/Vol] 10*3/uL Normal <0.01 [facility] Comment on above: Order Comment: Speci men Type: BLOOD SPECIMEN Ordering Facility: [facility] Address: [address] [place] [address] Performed By: #### 2 857-1 #### [facility] CLIA [id number] [address] [place] [address] [place] Nucleated RBC/100 WBC (Bld) [Ratio] 0.0 /100 WBC Normal [facility] Comment on above: Order Comment: Speci men Type: BLOOD SPECIMEN Ordering Facility: [facility] Address: [address] [place] [address] Performed By: #### 2 857-1 #### [facility] CLIA [id number] [address] [place] [address] [place] Platelet mean volume (Bld) [Entitic vol] 9.3 fL Normal 9.0-12.7 [facility] Comment on above: Order Comment: Speci men Type: BLOOD SPECIMEN Ordering Facility: [facility] Address: [address] [place] [address] Performed By: #### 2 857-1 #### [facility] CLIA [id number] [address] [place] [address] [place] Platelets (Bld) [#/Vol] 192 10*3/uL Normal 150-400 [facility] Comment on above: Order Comment: Speci men Type: BLOOD SPECIMEN Ordering Facility: [facility] Address: [address] [place] [address] Performed By: #### 2 857-1 #### [facility] CLIA [id number] [address] [place] [address] [place] RBC (Bld) [#/Vol] 3.49 10*6/uL Low 4.20-6.00 [facility] Comment on above: Order Comment: Speci men Type: BLOOD SPECIMEN Ordering Facility: [facility] Address: [address] [place] [address] Performed By: #### 2 857-1 #### [facility] CLIA [id number] [address] [place] [address] [place] WBC (Bld) [#/Vol] 5.98 10*3/uL Normal 3.70-11.00 [facility] Comment on above: Order Comment: Speci men Type: BLOOD SPECIMEN Ordering Facility: [facility] Address: [address] [place] [address] Performed By: #### 2 857-1 #### [facility] CLIA [id number] [address] [place] [address] [place] Comprehensive metabolic 2000 panelon 05-03-2024 Albumin [Mass/Vol] 3.9 g/dL Normal 3.9-4.9 [facility] Comment on above: Order Comment: Speci men Type: BLOOD SPECIMEN Ordering Facility: [facility] Address: [address] [place] [address] Performed By: #### 2 857-1 #### [facility] CLIA [id number] [address] [place] [address] [place] ALP [Catalytic activity/Vol] 71 U/L Normal 38-113 [facility] Comment on above: Order Comment: Speci men Type: BLOOD SPECIMEN Ordering Facility: [facility] Address: [address] [place], [place] [address] Performed By: #### 2 857-1 #### [facility] CLIA [id number] [address] [place] [address] [place] ALT [Catalytic activity/Vol] 16 U/L Normal 10-54 [facility] Comment on above: Order Comment: Speci men Type: BLOOD SPECIMEN Ordering Facility: [facility] Address: [address] [place] [address] Performed By: #### 2 857-1 #### [facility] CLIA [id number] [address] [place] [address] [place] Anion gap [Moles/Vol] 9 mmol/L Normal 8-15 [facility] Comment on above: Order Comment: Speci men Type: BLOOD SPECIMEN Ordering Facility: [facility] Address: [address] [place] [address] Performed By: #### 2 857-1 #### [facility] CLIA [id number] [address] [place] [address] [place] AST [Catalytic activity/Vol] 17 U/L Normal 14-40 [facility] Comment on above: Order Comment: Speci men Type: BLOOD SPECIMEN Ordering Facility: [facility] Address: [address] [place] [address] Performed By: #### 2 857-1 #### [facility] CLIA [id number] [address] [place], [place] [address] [place] Bilirubin [Mass/Vol] 0.5 mg/dL Normal 0.2-1.3 [facility] Comment on above: Order Comment: Speci men Type: BLOOD SPECIMEN Ordering Facility: [facility] Address: [address] [place] [address] Performed By: #### 2 857-1 #### [facility] CLIA [id number] [address] [place] [address] [place] Calcium [Mass/Vol] 9.5 mg/dL Normal 8.5-10.2 [facility] Comment on above: Order Comment: Speci men Type: BLOOD SPECIMEN Ordering Facility: [facility] Address: [address] [place] [address] Performed By: #### 2 857-1 #### [facility] CLIA [id number] [address] [place] [address] [place] Chloride [Moles/Vol] 104 mmol/L Normal 98-107 [facility] Comment on above: Order Comment: Speci men Type: BLOOD SPECIMEN Ordering Facility: [facility] Address: [address] [place] [address] Performed By: #### 2 857-1 #### [facility] CLIA [id number] [address] [place] [address] [place] CO2 [Moles/Vol] 26 mmol/L Normal 22-30 [facility] Comment on above: Order Comment: Speci men Type: BLOOD SPECIMEN Ordering Facility: [facility] Address: [address] [place] [address] Performed By: #### 2 857-1 #### [facility] CLIA [id number] [address] [place] [address] [place] Creatinine [Mass/Vol] 0.88 mg/dL Normal 0.73-1.22 [facility] Comment on above: Order Comment: Speci men Type: BLOOD SPECIMEN Ordering Facility: [facility] Address: [address] [place] [address] Performed By: #### 2 857-1 #### [facility] CLIA [id number] [address] [place] [address] [place] Creatinine and Glomerular filtration rate.predicted panel (S/P/Bld) 88 mL/min/1.73m??? Normal >=60 [facility] Comment on above: Order Comment: Speci men Type: BLOOD SPECIMEN Ordering Facility: [facility] Address: [address] [place] [address] Result Comment: Renae mated Glomerular Filtration Rate [...] GFR. Performed By: #### 2 857-1 #### [facility] CLIA [id number] [address] [place] [address] [place] Glucose [Mass/Vol] 106 mg/dL High 74-99 [facility] Comment on above: Order Comment: Nicanor camilo Type: BLOOD SPECIMEN Ordering Facility: [facility] Address: [address] [place] [address] Result Comment: The [place] Diabetes Association (ADA) provides guidance for cutoff [...] Standards of Medical Care in Diabetes 2016, [place] [employer]. Diabetes Care. 2016.39(Suppl 1). Performed By: #### 2 857-1 #### [facility] CLIA [id number] [address] [place] [address] [place] Potassium [Moles/Vol] 5.6 mmol/L High 3.7-5.1 [facility] Comment on above: Order Comment: Nicanor camilo Type: BLOOD SPECIMEN Ordering Facility: [facility] Address: [address] [place] [address] Performed By: #### 2 857-1 #### [facility] CLIA [id number] [address] [place] [address] [place] Protein [Mass/Vol] 6.3 g/dL Normal 6.3-8.0 [facility] Comment on above: Order Comment: Speci men Type: BLOOD SPECIMEN Ordering Facility: [facility] Address: [address] [place] [address] Performed By: #### 2 857-1 #### [facility] CLIA [id number] [address] [place] [address] [place] Sodium [Moles/Vol] 139 mmol/L Normal 136-144 [facility] Comment on above: Order Comment: Speci men Type: BLOOD SPECIMEN Ordering Facility: [facility] Address: [address] [place] [address] Performed By: #### 2 857-1 #### [facility] CLIA [id number] [address] [place] [address] [place] Urea nitrogen [Mass/Vol] 19 mg/dL Normal 9-24 [facility] Comment on above: Order Comment: Speci men Type: BLOOD SPECIMEN Ordering Facility: [facility] Address: [address] [place] [address] Performed By: #### 2 857-1 #### [facility] CLIA [id number] [address] [place] [address] [place] [facility] Prostate specific Ag [Mass/Vol] 0.18 ng/mL Normal <2.60 [facility] Comment on above: Order Comment: Speci men Type: BLOOD SPECIMEN Ordering Facility: [facility] Address: [address] [place] [address] Result Comment: Tota l PSA test methodology used is the Electrochemiluminescence Immunoassay by [employer] Total PSA values by differing methodologies cannot be interchanged. Performed By: #### 2 857-1 #### [facility] CLIA [id number] [address] [place], [place] [address] [id number] [facility] Ambulatory Visit Summaryon 1 Ambulatory Visit [...] mg Tab) ipratropium nasal (ipratropium Nasal 0.06% [place]) metformin (metformin 1000 mg oral tablet) metoprolol [...] Anthony SCRUGGS MD Where: [facility] [address] [address]- You Need to Schedule the Following Appointments Follow Up with Anthony SCRUGGS MD, URL When: Where: [address] [place] [address]- Medications What How Much When Instructions Unchanged [...] concerns Unchanged ipratropium nasal (ipratropium Nasal 0.06% [place]) Contact prescribing physician if questions or concerns [...] Trouble st (more content not included)... 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 Last Lupron administered 04/2022. Taking Xtandi 160mg qd and Xgeva q3mos. Last seen by [facility] oncology 02/02/24. Plan at that time [...] visit. Follow-up With When Contact Information KAEL JMAES, Anthony Lee, URL [address] [place] [address]- Additional Instructions: 6 mos w/ PSA and [...] hydrochlorothiazide-lisinop ril (more content not included)... Normal [facility] Comment on above: Result Comment: Elec tronically Signed By: Anthony SCRUGGS MD\.br\Date and Time Signed: 04/19/24 08:47 EDT\.br\Electronically Co-Signed By: Olamide Ureña.br\Date and Time Co-Signed: 04/19/24 08:45 EDT Office Visiton 03-29-2024 Follow-up visit [id number] Pablo Felix 1945 M Date Provider Department Center 03/29/2024 [facility] Family History Problem Relation Age of Onset Coronary artery disease Father Family Status - Relation Status Age at Father Level of Service:[address] [place] OFFICE/OUTPATIENT ESTABLISHED MOD MDM 30 MIN Normal [facility] Basophils Auto (Bld) [#/Vol] on 01-25-2024 Basophils (Bld) [#/Vol] 0.04 10*3/uL <0.11 [facility] Basophils/100 WBC Auto (Bld) on 01-25-2024 Basophils/100 WBC (Bld) 0.6 % [facility] Blood manual differential co mment interpretation narrativeon 01-25-2024 Manual differential comment [place] (Bld) [Interp] Auto [facility] Eosinophils/100 WBC Auto (Bl d)on 01-25-2024 Eosinophils/100 WBC (Bld) 5.9 % [facility] Erythrocyte distribution wid th Auto (RBC) [Ratio]on 01-25-2024 Erythrocyte distribution width (RBC) [Ratio] 12.7 % 11.5-15.0 [facility] Hematocrit Auto (Bld) [Volum e fraction]on 01-25-2024 Hematocrit (Bld) [Volume fraction] 34.6 % Low 39.0-51.0 [facility] Hemoglobin [Mass/volume] in Bloodon 01-25-2024 Hemoglobin (Bld) [Mass/Vol] 11.8 g/dL Low 13.0-17.0 [facility] Laboratory - Chemistry and C hemistry - challengeon 01-25-2024 Albumin [Mass/Vol] 4.0 g/dL 3.9-4.9 [facility] ALP [Catalytic activity/Vol] 74 U/L 38-113 [facility] ALT [Catalytic activity/Vol] 18 U/L 10-54 [facility] AST [Catalytic activity/Vol] 19 U/L 14-40 [facility] Bilirubin [Mass/Vol] 0.7 mg/dL 0.2-1.3 [facility] Calcium [Mass/Vol] 9.9 mg/dL 8.5-10.2 [facility] Chloride [Moles/Vol] 103 mmol/L 98-107 [facility] CO2 [Moles/Vol] 25 mmol/L 22-30 [facility] Creatinine [Mass/Vol] 0.79 mg/dL 0.73-1.22 [facility] Glucose [Mass/Vol] 112 mg/dL High 74-99 [facility] Comment on above: The [place] Diabete s Association (ADA) provides guidance for [...] Standards of Medical Care in Diabetes 2016, [place] [employer]. Diabetes Care. 2016.39(Suppl 1). Potassium [Moles/Vol] 5.2 mmol/L High 3.7-5.1 [facility] Sodium [Moles/Vol] 137 mmol/L 136-144 [facility] Urea nitrogen [Mass/Vol] 15 mg/dL 04-09 [facility] Laboratory - Hematology and Cell countson 01-25-2024 Eosinophils (Bld) [#/Vol] 0.40 10*3/uL <0.46 [facility] Immature granulocytes (Bld) [#/Vol] 0.07 10*3/uL <0.10 [facility] Immature granulocytes/100 WBC (Bld) 1.0 % [facility] Leukocytes [#/volume] correc jomar for nucleated erythrocytes in Blood by Automated counon 01-25-2024 WBC corrected for nucl RBC Auto (Bld) [#/Vol] 6.80 k/uL 3.70-11.00 [facility] Lymphocytes Auto (Bld) [#/Vo l]on 01-25-2024 Lymphocytes (Bld) [#/Vol] 2.16 10*3/uL 1.00-4.00 [facility] Lymphocytes/100 WBC Auto (Bl d)on 01-25-2024 Lymphocytes/100 WBC (Bld) 31.8 % [facility] MCH Auto (RBC) [Entitic mass ]on 01-25-2024 MCH (RBC) [Entitic mass] 32.2 pg 26.0-34.0 [facility] MCHC Auto (RBC) [Mass/Vol]on 01-25-2024 MCHC (RBC) [Mass/Vol] 34.1 g/dL 30.5-36.0 [facility] MCV Auto (RBC) [Entitic vol] on 01-25-2024 MCV (RBC) [Entitic vol] 94.3 fL 80.0-100.0 [facility] Monocytes Auto (Bld) [#/Vol] on 01-25-2024 Monocytes (Bld) [#/Vol] 0.60 10*3/uL <0.87 [facility] Monocytes/100 WBC Auto (Bld) on 01-25-2024 Monocytes/100 WBC (Bld) 8.8 % [facility] Neutrophils Auto (Bld) [#/Vo l]on 01-25-2024 Neutrophils (Bld) [#/Vol] 3.53 10*3/uL 1.45-7.50 [facility] Neutrophils/100 WBC Auto (Bl d)on 01-25-2024 Neutrophils/100 WBC (Bld) 51.9 % [facility] No Panel Informationon 01-24 Estimated GFR (CKD-EPI) 91 mL/min/1.73m??? >=60 [facility] Comment on above: Estimated Glomerular [...] GFR. Prostate Specific Antigen 0.15 ng/mL <2.60 [facility] Comment on above: Total PSA test metho dology used is the Electrochemiluminescence Immunoassay by [employer]. Total PSA values by differing methodologies cannot be interchanged. Nucleated RBC Auto (Bld) [#/ Vol]on 01-25-2024 Nucleated RBC (Bld) [#/Vol] 10*3/uL <0.01 [facility] Nucleated erythrocytes [Pres ence] in Blood by Automated counton 01-25-2024 Nucleated RBC Auto Ql (Bld) 0.0 /100{WBC} [facility] Platelet mean volume Auto (B ld) [Entitic vol]on 01-25-2024 Platelet mean volume (Bld) [Entitic vol] 10.3 fL 9.0-12.7 [facility] Platelets Auto (Bld) [#/Vol] on 01-25-2024 Platelets (Bld) [#/Vol] 184 10*3/uL 150-400 [facility] Protein [Mass/volume] in Ser um or Plasmaon 01-25-2024 Protein [Mass/Vol] 6.6 g/dL 6.3-8.0 [facility] RBC Auto (Bld) [#/Vol]on RBC (Bld) [#/Vol] 3.67 10*6/uL Low 4.20-6.00 [facility] Serum or plasma anion gap de terminationon 01-25-2024 Anion gap [Moles/Vol] 9 mmol/L 02-28 [facility] Consultation Noteon 11-07-19 24 Consultation Note [id number] Normal [facility] Basophils Auto (Bld) [#/Vol] on 10-30-2023 Basophils (Bld) [#/Vol] 0.04 10*3/uL <0.11 [facility] Basophils/100 WBC Auto (Bld) on 10-30-2023 Basophils/100 WBC (Bld) 0.5 % [facility] Blood manual differential co mment interpretation narrativeon 10-30-2023 Manual differential comment [place] (Bld) [Interp] Auto [facility] Eosinophils/100 WBC Auto (Bl d)on 10-30-2023 Eosinophils/100 WBC (Bld) 4.3 % [facility] Erythrocyte distribution wid th Auto (RBC) [Ratio]on 10-30-2023 Erythrocyte distribution width (RBC) [Ratio] 12.8 % 11.5-15.0 [facility] Hematocrit Auto (Bld) [Volum e fraction]on 10-30-2023 Hematocrit (Bld) [Volume fraction] 35.8 % 39.0-51.0 [facility] Hemoglobin [Mass/volume] in Bloodon 10-30-2023 Hemoglobin (Bld) [Mass/Vol] 12.2 g/dL 13.0-17.0 [facility] Laboratory - Chemistry and C hemistry - challengeon 10-30-2023 Albumin [Mass/Vol] 4.1 g/dL 3.9-4.9 [facility] ALP [Catalytic activity/Vol] 75 U/L 38-113 [facility] ALT [Catalytic activity/Vol] 16 U/L 10-54 [facility] AST [Catalytic activity/Vol] 16 U/L 14-40 [facility] Bilirubin [Mass/Vol] 0.7 mg/dL 0.2-1.3 [facility] Calcium [Mass/Vol] 9.8 mg/dL 8.5-10.2 [facility] Chloride [Moles/Vol] 103 mmol/L 97-105 [facility] CO2 [Moles/Vol] 24 mmol/L 22-30 [facility] Creatinine [Mass/Vol] 0.88 mg/dL 0.73-1.22 [facility] Glucose [Mass/Vol] 128 mg/dL 74-99 [facility] Comment on above: The [place] Diab[employer] s Association (ADA) provides guidance for [...] Standards of Medical Care in Diabetes 2016, [place] [employer]. Diabetes Care. 2016.39(Suppl 1). Potassium [Moles/Vol] 4.8 mmol/L 3.7-5.1 [facility] Sodium [Moles/Vol] 140 mmol/L 136-144 [facility] Urea nitrogen [Mass/Vol] 18 mg/dL 9-24 [facility] Laboratory - Hematology and Cell countson 10-30-2023 Eosinophils (Bld) [#/Vol] 0.35 10*3/uL <0.46 [facility] Immature granulocytes (Bld) [#/Vol] 0.04 10*3/uL <0.10 [facility] Immature granulocytes/100 WBC (Bld) 0.5 % [facility] Leukocytes [#/volume] correc jomar for nucleated erythrocytes in Blood by Automated counon 10-30-2023 WBC corrected for nucl RBC Auto (Bld) [#/Vol] 8.19 k/uL 3.70-11.00 [facility] Lymphocytes Auto (Bld) [#/Vo l]on 10-30-2023 Lymphocytes (Bld) [#/Vol] 1.36 10*3/uL 1.00-4.00 [facility] Lymphocytes/100 WBC Auto (Bl d)on 10-30-2023 Lymphocytes/100 WBC (Bld) 16.6 % [facility] MCH Auto (RBC) [Entitic mass ]on 10-30-2023 MCH (RBC) [Entitic mass] 31.3 pg 26.0-34.0 [facility] MCHC Auto (RBC) [Mass/Vol]on 10-30-2023 MCHC (RBC) [Mass/Vol] 34.1 g/dL 30.5-36.0 [facility] MCV Auto (RBC) [Entitic vol] on 10-30-2023 MCV (RBC) [Entitic vol] 91.8 fL 80.0-100.0 [facility] Monocytes Auto (Bld) [#/Vol] on 10-30-2023 Monocytes (Bld) [#/Vol] 0.62 10*3/uL <0.87 [facility] Monocytes/100 WBC Auto (Bld) on 10-30-2023 Monocytes/100 WBC (Bld) 7.6 % [facility] Neutrophils Auto (Bld) [#/Vo l]on 10-30-2023 Neutrophils (Bld) [#/Vol] 5.78 10*3/uL 1.45-7.50 [facility] Neutrophils/100 WBC Auto (Bl d)on 10-30-2023 Neutrophils/100 WBC (Bld) 70.5 % [facility] No Panel Informationon 10-29 Estimated GFR (CKD-EPI) 89 mL/min/1.73m??? >=60 [facility] Comment on above: Estimated Glomerular [...] GFR. Prostate Specific Antigen 0.16 ng/mL <2.60 [facility] Comment on above: Total PSA test metho dology used is the Electrochemiluminescence Immunoassay by [employer]. Total PSA values by differing methodologies cannot be interchanged. Testosterone Level 78 ng/dL [phone] [facility] Comment on above: A testosterone level in the 193-320 ng/dL range with associated clinical symptoms is considered low and may indicate hypogonadism (from NEJ 2010 363:123-135). Results >320 ng/dL are considered normal.Result rechecked. Nucleated RBC Auto (Bld) [#/ Vol]on 10-30-2023 Nucleated RBC (Bld) [#/Vol] 10*3/uL <0.01 [facility] Nucleated erythrocytes [Pres ence] in Blood by Automated counton 10-30-2023 Nucleated RBC Auto Ql (Bld) 0.0 /100{WBC} [facility] Platelet mean volume Auto (B ld) [Entitic vol]on 10-30-2023 Platelet mean volume (Bld) [Entitic vol] 9.5 fL 9.0-12.7 [facility] Platelets Auto (Bld) [#/Vol] on 10-30-2023 Platelets (Bld) [#/Vol] 192 10*3/uL 150-400 [facility] Protein [Mass/volume] in Ser um or Plasmaon 10-30-2023 Protein [Mass/Vol] 6.5 g/dL 6.3-8.0 [facility] RBC Auto (Bld) [#/Vol]on RBC (Bld) [#/Vol] 3.90 10*6/uL 4.20-6.00 [facility] Serum or plasma anion gap de terminationon 10-30-2023 Anion gap [Moles/Vol] 13 mmol/L 9-18 [facility] Patient Educationon 10-20-19 24 Patient Education Oncology [...] under a microscope. This is called the Painter score and the total score can range from 6?10, indicating how likely it is that the cancer will spread (metastasize) to other parts of the body. The higher the score, the greater the likelihood that the cancer will spread. ? Painter 6 or lower: This indicates that the cancer cells look similar to normal prostate cells (well differentiated). ? Painter 7: This indicates that the cancer cells [...] be (more content not included)... Normal [facility] Urology Office/Clinic Noteon 10-20-2023 Urology Office/Clinic [...] Information KAEL JAMES, Anthony Lee, URL [address] [place] [address]- Additional Instructions: 6 mos w/ PSA and [...] 1 tab(s), Oral, Daily ipratropium Nasal 0.06% [place] metformin 1000 mg oral tablet, Oral, BID metoprolol 25 mg ER Tab, 25 mg= 1 tab(s), Oral, BID Vitamin D3 Xtandi 80 mg oral tablet, Oral, Daily Allergies penicillin G benzathine (Unknown) Social History Alcohol Current, 1-2 times per year, 02/04/2019 Tobacco Never (less than 100 in lifetime) Tobacco Use:. Never Smokeless Tobacco Use:. (more content not included)... Normal [facility] Comment on above: Result Comment: Elec tronically Signed By: Anthony SCRUGGS MD\.br\Date and Time Signed: 10/20/23 09:57 EDT\.br\Electronically Co-Signed By: Olamide Ureñabr\Date and Time Co-Signed: 10/20/23 09:55 EDT No Panel Informationon 10-08 Prostate Specific Antigen Total <0.13 ng/mL <=4.00 [facility] No Panel Informationon 08-28 [facility] Type of biopsy: shcmidt ential Informed consent: discussed and consent obtained [...] yes Amount of lidocaine used: 0.5 cc [facility] Office Visiton 06-22-2023 Follow-up visit [id number] Pablo Felix 1945 M Date Provider Department Center 06/22/2023 Erika-BRIDGER MULLIGAN [facility] Family History Problem Relation Age of Onset Coronary artery disease Father Family Status - Relation Status Age at Father Level of Service:42914 [place] OFFICE/OUTPATIENT ESTABLISHED MOD MDM 30-39 MIN Normal [facility] GLYCOHEMOGLOBIN A1Con 2022 ADA RECOMMENDATION SEE BELOW Normal [facility] Comment on above: Result Comment: ADA RECOMMENDED LIMIT 4.0 - 6.0 ADA THERAPEUTIC TARGET < 7.0 ACTION SUGGESTED > 7.0 Performed By: #### D ATA1C #### [facility] [address] [address] [address] Bharati Aguiar Glucose [Mass/Vol] 131 mg/dL Normal [facility] Comment on above: Performed By: #### D ATA1C #### [facility] [address] [place], [place] [address] Dr. Bharati Aguiar HbA1c (Bld) [Mass fraction] 6.2 % Normal 4.5-6.2 [facility] Comment on above: Performed By: #### D ATA1C #### [facility] [address] [address] [address] Bharati Aguiar XR CSPINE OBL FLEX_EXTon [...] by: CYNTHIA TORRES Date: 2022-07-21 15:52 Normal [facility] GLYCOHEMOGLOBIN A1Con 2021 ADA RECOMMENDATION SEE BELOW Normal [facility] Comment on above: Result Comment: ADA RECOMMENDED LIMIT 4.0 - 6.0 ADA THERAPEUTIC TARGET < 7.0 ACTION SUGGESTED > 7.0 Performed By: #### D ATA1C #### [facility] [address] [address] [address] Bharati Aguiar Glucose [Mass/Vol] 134 mg/dL Normal [facility] Comment on above: Performed By: #### D ATA1C #### [facility] [address] [address] [address] Bharati Aguiar HbA1c (Bld) [Mass fraction] 6.3 % Critically high 4.5-6.2 [facility] Comment on above: Performed By: #### D ATA1C #### [facility] [address] [address] [address] Bharati Aguiar ECHOCARDIO M/2D COMPLETEon 1 ECHOCARDIO M/2D COMPLETE Patient: PABLO FELIX Exam Date: 04/27/2022 : 1945 Gender:M Ordering : LORA ENGLISH Admission #: [id number] Family : DR JAMAR FALL DSony Order #: [id number] CLICK HERE TO VIEW EXAM ECHOCARDIOGRAM REPORT [...] Carreon M.D. on 04/28/2022 at 19:09 Normal [facility] GLYCOHEMOGLOBIN A1Con 2021 ADA RECOMMENDATION SEE BELOW Normal [facility] Comment on above: Result Comment: ADA RECOMMENDED LIMIT 4.0 - 6.0 ADA THERAPEUTIC TARGET < 7.0 ACTION SUGGESTED > 7.0 Performed By: #### D ATA1C ####[facility] [id number] [place], [place] [address]AtJunior Aguiar Glucose [Mass/Vol] 137 mg/dL Normal [facility] Comment on above: Performed By: #### D ATA1C ####[facility] [address] [place], [place] [address]XtJunior Aguiar HbA1c (Bld) [Mass fraction] 6.4 % Critically high 4.5-6.2 [facility] Comment on above: Performed By: #### D ATA1C ####[facility] [id number] [place], [place] [address]Hn. Yilan Aguiar NM BONE SC WH BODYon [...] it was not obviously included in the jifqv-[id number] of the recent CT. There are foci [...] DE JESUS Date: 2021-11-06 12:45 Normal [facility] CT CHEST W CONon 11-05-2021 CT [...] LUIZ UMANA Date: 2021-11-05 14:08 Normal [facility] PROF 14(COMP METB)on 022 Albumin [Mass/Vol] 3.6 g/dL Normal 3.4-5.0 [facility] Comment on above: Performed By: #### C MP #### [facility] [address] [place] [address] Dr. Bharati Aguiar Albumin/Globulin [Mass ratio] 1.1 {ratio} Normal [facility] Comment on above: Performed By: #### C MP #### [facility] [address] [address] [address] Bharati Aguiar ALP [Catalytic activity/Vol] 89 U/L Normal 46-116 [facility] Comment on above: Performed By: #### C MP #### [facility] [address] [address] [address] Bharati Aguiar ALT [Catalytic activity/Vol] 33 U/L Normal 16-63 [facility] Comment on above: Performed By: #### C MP #### [facility] [address] [address] [address] Bharati Aguiar Anion gap [Moles/Vol] 12.1 mmol/L Normal [facility] Comment on above: Performed By: #### C MP #### [facility] [address] [address] [address] Bharati Aguiar AST [Catalytic activity/Vol] 19 U/L Normal 15-37 [facility] Comment on above: Performed By: #### C MP #### [facility] [address] [address] [address] Bharati Aguiar Bilirubin [Mass/Vol] 0.9 mg/dL Normal 0.2-1.3 [facility] Comment on above: Performed By: #### C MP #### [facility] [address] [address] [address] Bharati Aguiar Calcium [Mass/Vol] 8.8 mg/dL Normal 8.5-10.1 [facility] Comment on above: Performed By: #### C MP #### [facility] [address] [address] [address] Bharati Aguiar Chloride [Moles/Vol] 103 mmol/L Normal 98-107 [facility] Comment on above: Performed By: #### C MP #### [facility] [address] [address] [address] Bharati Aguiar CO2 [Moles/Vol] 28.6 mmol/L Normal 22.0-30.0 [facility] Comment on above: Performed By: #### C MP #### [facility] [address] [address] [address] Bharati Aguiar Creatinine [Mass/Vol] 0.85 mg/dL Normal 0.66-1.25 [facility] Comment on above: Performed By: #### C MP #### [facility] [address] [address] [address] Bharati Aguiar EGFR-AF FAROESE >60 Normal >=60 [facility] Comment on above: Performed By: #### C MP #### [facility] [address] [address] [address] Bharati Aguiar EGFR-NON AF FAROESE >60 Normal >=60 [facility] Comment on above: Performed By: #### C MP #### [facility] [address] [address] [address] Bharati Aguiar Globulin (S) [Mass/Vol] 3.4 g/dL Normal [facility] Comment on above: Performed By: #### C MP #### [facility] [address] [address] [address] Bharati Aguiar Glucose [Mass/Vol] 127 mg/dL Critically high 74-106 [facility] Comment on above: Performed By: #### C MP #### [facility] [address] [place] [address] Dr. Bharati Aguiar Potassium [Moles/Vol] 4.7 mmol/L Normal 3.4-5.0 [facility] Comment on above: Performed By: #### C MP #### [facility] [address] [place] [address] Dr. Bharati Aguiar Protein [Mass/Vol] 7.0 g/dL Normal 6.1-8.2 [facility] Comment on above: Performed By: #### C MP #### [facility] [address] [place] [address] Dr. Bharati Aguiar Sodium [Moles/Vol] 139 mmol/L Normal 137-[address] [facility] Comment on above: Performed By: #### C MP #### [facility] [address] [place] [address] Dr. Bharati Aguiar Urea nitrogen [Mass/Vol] 18.0 mg/dL Normal 7.0-18.0 [facility] Comment on above: Performed By: #### C MP #### [facility] [address] [place] [address] Dr. Bharati Aguiar Urea nitrogen/Creatinin e [Mass ratio] 21.2 mg/mg Normal [facility] Comment on above: Performed By: #### C MP #### [facility] [address] [address] [address] Bharati Aguiar Vital Signs Date Time Vital Sign Value Performing Clinician Facility 09-02-2024 09:44-0500 Body height 168.91 cm [facility] 09-02-2024 09:44-0500 Body mass index (BMI) [Ratio] 32.4 kg/m2 [facility] 09-02-2024 09:44-0500 Body weight 92.53 kg [facility] 09-02-2024 09:44-0500 Diastolic blood pressure 80 mm[Hg] [facility] 09-02-2024 09:44-0500 Heart rate 46 /min [facility] 09-02-2024 09:44-0500 Respiratory rate 12 /min [facility] 09-02-2024 09:44-0500 Systolic blood pressure 130 mm[Hg] [facility] 08-08-2024 09:07-0500 Body height 167.6 cm Christo Howard APRN.SALES AND SERVICE ENGINEER Work Phone: [facility] 08-08-2024 09:07-0500 Body mass index (BMI) [Ratio] 33.82 kg/m2 Christo Howard APRN.SALES AND SERVICE ENGINEER Work Phone: [facility] 08-08-2024 09:07-0500 Body temperature 97.9 [degF] Christo Howard APRN.SALES AND SERVICE ENGINEER Work Phone: [facility] 08-08-2024 09:07-0500 Body weight 95 kg Christo Howard APRN.SALES AND SERVICE ENGINEER Work Phone: [facility] 08-08-2024 09:07-0500 Diastolic blood pressure 56 mm[Hg] Christo Howard APRN.SALES AND SERVICE ENGINEER Work Phone: [facility] 08-08-2024 09:07-0500 Heart rate 57 /min Christo Howard APRN.SALES AND SERVICE ENGINEER Work Phone: [facility] 08-08-2024 09:07-0500 Respiratory rate 16 /min Christo Howard APRN.SALES AND SERVICE ENGINEER Work Phone: [facility] 08-08-2024 09:07-0500 SaO2% (BldA) [Mass fraction] 99 % Christo Howard APRN.SALES AND SERVICE ENGINEER Work Phone: [facility] 08-08-2024 09:07-0500 Systolic blood pressure 149 mm[Hg] Christo Howard APRN.SALES AND SERVICE ENGINEER Work Phone: [facility] 06-10-2024 14:25-0500 Body height 168.91 cm [facility] 06-10-2024 14:25-0500 Body mass index (BMI) [Ratio] 32.8 kg/m2 [facility] 06-10-2024 14:25-0500 Body weight 93.55 kg [facility] 06-10-2024 14:25-0500 Diastolic blood pressure 79 mm[Hg] [facility] 06-10-2024 14:25-0500 Heart rate 61 /min [facility] 06-10-2024 14:25-0500 Respiratory rate 12 /min [facility] 06-10-2024 14:25-0500 Systolic blood pressure 153 mm[Hg] [facility] 05-09-2024 08:52-0400 Body mass index (BMI) [Ratio] 32.79 kg/m2 Marco A Esqueda MD Work Phone: [facility] 05-09-2024 08:52-0400 Body temperature 97.3 [degF] Marco A Esqueda MD Work Phone: [facility] 05-09-2024 08:52-0400 Body weight 92.1 kg Marco A Esqueda MD Work Phone: [facility] 05-09-2024 08:52-0400 Diastolic blood pressure 62 mm[Hg] Marco A Esqueda MD Work Phone: [facility] 05-09-2024 08:52-0400 Heart rate 62 /min Marco A Esqueda MD Work Phone: [facility] 05-09-2024 08:52-0400 Respiratory rate 16 /min Marco A Esqueda MD Work Phone: [facility] 05-09-2024 08:52-0400 SaO2% (BldA) [Mass fraction] 99 % Marco A Esqueda MD Work Phone: [facility] 05-09-2024 08:52-0400 Systolic blood pressure 141 mm[Hg] Marco A Esqueda MD Work Phone: [facility] 04-19-2024 08:15-0400 Blood Pressure Location Anthony SCRUGGS [facility] 04-19-2024 08:15-0400 Body temperature 98.6 [degF] Anthony SCRUGGS [facility] 04-19-2024 08:15-0400 Diastolic blood pressure 69 mm[Hg] Anthony SCRUGGS [facility] 04-19-2024 08:15-0400 Heart rate 64 /min Anthony SCRUGGS [facility] 04-19-2024 08:15-0400 Respiratory rate 17 /min Anthony SCRUGGS [facility] 04-19-2024 08:15-0400 Systolic blood pressure 129 mm[Hg] Anthony SCRUGGS [facility] 03-26-2024 08:37-0400 Body height 168.91 cm [facility] 03-26-2024 08:37-0400 Body mass index (BMI) [Ratio] 33 kg/m2 [facility] 03-26-2024 08:37-0400 Body weight 94.12 kg [facility] 03-26-2024 08:37-0400 Diastolic blood pressure 80 mm[Hg] [facility] 03-26-2024 08:37-0400 Heart rate 52 /min [facility] 03-26-2024 08:37-0400 Respiratory rate 12 /min [facility] 03-26-2024 08:37-0400 Systolic blood pressure 130 mm[Hg] [facility] 02-02-2024 11:06-0400 Body height 167.6 cm Lynne Gross FITNESS SALES CONSULTANT.SALES AND SERVICE ENGINEER Work Phone: [facility] 02-02-2024 11:06-0400 Body mass index (BMI) [Ratio] 33.36 kg/m2 Lynne Gross FITNESS SALES CONSULTANT.SALES AND SERVICE ENGINEER Work Phone: [facility] 02-02-2024 11:06-0400 Body temperature 97.3 [degF] Lynne Gross FITNESS SALES CONSULTANT.SALES AND SERVICE ENGINEER Work Phone: [facility] 02-02-2024 11:06-0400 Body weight 93.7 kg Lynne Gross FITNESS SALES CONSULTANT.SALES AND SERVICE ENGINEER Work Phone: [facility] 02-02-2024 11:06-0400 Diastolic blood pressure 54 mm[Hg] Lynne Gross FITNESS SALES CONSULTANT.SALES AND SERVICE ENGINEER Work Phone: [facility] 02-02-2024 11:06-0400 Heart rate 52 /min Lynne Gross FITNESS SALES CONSULTANT.SALES AND SERVICE ENGINEER Work Phone: [facility] 02-02-2024 11:06-0400 Respiratory rate 16 /min Lynne Gross FITNESS SALES CONSULTANT.SALES AND SERVICE ENGINEER Work Phone: [facility] 02-02-2024 11:06-0400 SaO2% (BldA) [Mass fraction] 98 % Lynne Gross FITNESS SALES CONSULTANT.SALES AND SERVICE ENGINEER Work Phone: [facility] 02-02-2024 11:06-0400 Systolic blood pressure 137 mm[Hg] Lynne Gross FITNESS SALES CONSULTANT.SALES AND SERVICE ENGINEER Work Phone: [facility] 11-23-2023 08:38-0400 Body height 168.91 cm [facility] 11-23-2023 08:38-0400 Body mass index (BMI) [Ratio] 33.2 kg/m2 [facility] 11-23-2023 08:38-0400 Body weight 94.8 kg [facility] 11-23-2023 08:38-0400 Diastolic blood pressure 69 mm[Hg] [facility] 11-23-2023 08:38-0400 Heart rate 48 /min [facility] 11-23-2023 08:38-0400 Respiratory rate 12 /min [facility] 11-23-2023 08:38-0400 Systolic blood pressure 130 mm[Hg] [facility] 11-02-2023 09:14-0400 Body height 167.6 cm Christo Howard APRN.SALES AND SERVICE ENGINEER Work Phone: [facility] 11-02-2023 09:14-0400 Body temperature 97.81 [degF] Chritso Howard APRN.SALES AND SERVICE ENGINEER Work Phone: [facility] 11-02-2023 09:14-0400 Body weight 92.9 kg Christo Howard APRN.SALES AND SERVICE ENGINEER Work Phone: [facility] 11-02-2023 09:14-0400 Diastolic blood pressure 44 mm[Hg] Christo Howard APRN.SALES AND SERVICE ENGINEER Work Phone: [facility] 11-02-2023 09:14-0400 Heart rate 56 /min Christo Howard APRN.SALES AND SERVICE ENGINEER Work Phone: [facility] 11-02-2023 09:14-0400 Respiratory rate 16 /min Christo Howard APRN.SALES AND SERVICE ENGINEER Work Phone: [facility] 11-02-2023 09:14-0400 SaO2% (BldA) [Mass fraction] 97 % Christo Howard APRN.SALES AND SERVICE ENGINEER Work Phone: [facility] 11-02-2023 09:14-0400 Systolic blood pressure 123 mm[Hg] Christo Howard APRN.SALES AND SERVICE ENGINEER Work Phone: [facility] 10-20-2023 09:05-0400 Blood Pressure Location Anthony SCRUGGS [facility] 10-20-2023 09:05-0400 Diastolic blood pressure 64 mm[Hg] Anthony SCRUGGS [facility] 10-20-2023 09:05-0400 Heart rate 53 /min Anthony SCRUGGS [facility] 10-20-2023 09:05-0400 Respiratory rate 16 /min Anthony SCRUGGS [facility] 10-20-2023 09:05-0400 Systolic blood pressure 110 mm[Hg] Anthony SCRUGGS [facility] 09-12-2023 14:13-0500 Body height 168.91 cm [facility] 09-12-2023 14:13-0500 Body mass index (BMI) [Ratio] 33.4 kg/m2 [facility] [facility] 09-12-2023 14:13-0500 Body weight 95.42 kg [facility] 09-12-2023 14:13-0500 Diastolic blood pressure 84 mm[Hg] [facility] 09-12-2023 14:13-0500 Heart rate 56 /min [facility] 09-12-2023 14:13-0500 Respiratory rate 12 /min [facility] 09-12-2023 14:13-0500 Systolic blood pressure 143 mm[Hg] [facility] 08-24-2023 08:30-0500 Body height 168.91 cm Jamar Ball Other [facility] [employer] Other 08-24-2023 08:30-0500 Body mass index (BMI) [Ratio] 34.08 kg/m2 Jamar Ball Other [facility] [employer] Other 08-24-2023 08:30-0500 Body weight 97.25 kg Jamar Ball Other [facility] [employer] Other 08-24-2023 08:30-0500 Diastolic blood pressure 81 mm[Hg] Jamar Ball Other [employer] [facility] [employer] Other 08-24-2023 08:30-0500 Respiratory rate 12 /min Jamar Ball Other [employer] Other 08-24-2023 08:30-0500 Systolic blood pressure 125 mm[Hg] Jamar Ball Other [employer] Other 05-30-2023 15:00-0500 Body height 168.91 cm Jamar Ball Other [employer] Other 05-30-2023 15:00-0500 Body mass index (BMI) [Ratio] 32.84 kg/m2 Jamar Ball Other [employer] Other 05-30-2023 15:00-0500 Body weight 93.71 kg Jamar Ball Other [employer] Other 05-30-2023 15:00-0500 Diastolic blood pressure 66 mm[Hg] Jamar Ball Other [employer] Other 05-30-2023 15:00-0500 Respiratory rate 12 /min Jamar Ball Other [employer] Other 05-30-2023 15:00-0500 Systolic blood pressure 141 mm[Hg] Jamar Ball Other [employer] Other 05-01-2023 09:45-0400 Body height 168.91 cm Jamar Ball Other [employer] Other 05-01-2023 09:45-0400 Body mass index (BMI) [Ratio] 32.14 kg/m2 Jamar Ball Other [employer] Other 05-01-2023 09:45-0400 Body weight 91.72 kg Jamar Ball Other [employer] Other 05-01-2023 09:45-0400 Diastolic blood pressure 62 mm[Hg] Jamar Ball Other [employer] [facility] [employer] Other 05-01-2023 09:45-0400 Respiratory rate 12 /min Jamar Ball Other [employer] [facility] [employer] Other 05-01-2023 09:45-0400 Systolic blood pressure 129 mm[Hg] Jamar Ball Other [facility] [employer] Other 04-27-2023 09:23-0400 Diastolic blood pressure 49 mm[Hg] Christo Howard APRN.SALES AND SERVICE ENGINEER Work Phone: [facility] 04-27-2023 09:23-0400 Heart rate 50 /min Christo Howard APRN.SALES AND SERVICE ENGINEER Work Phone: [facility] 04-27-2023 09:23-0400 Systolic blood pressure 141 mm[Hg] Christo Howard APRN.SALES AND SERVICE ENGINEER Work Phone: [facility] 04-27-2023 09:20-0400 Body height 167.6 cm Christo Howard APRN.SALES AND SERVICE ENGINEER Work Phone: [facility] 04-27-2023 09:20-0400 Body temperature 97 [degF] Christo Howard APRN.SALES AND SERVICE ENGINEER Work Phone: [facility] 04-27-2023 09:20-0400 Body weight 92.53 kg Christo Howard APRN.SALES AND SERVICE ENGINEER Work Phone: [facility] 04-27-2023 09:20-0400 Respiratory rate 16 /min Christo Howard APRN.SALES AND SERVICE ENGINEER Work Phone: [facility] 04-27-2023 09:20-0400 SaO2% (BldA) [Mass fraction] 100 % Christo Howard APRN.SALES AND SERVICE ENGINEER Work Phone: [facility] 04-17-2023 08:45-0400 Blood Pressure Location Anthony KAEL [facility] 04-17-2023 08:45-0400 Diastolic blood pressure 68 mm[Hg] Anthony SCRUGGS [facility] 04-17-2023 08:45-0400 Heart rate 62 /min Anthony SCRUGGS [facility] 04-17-2023 08:45-0400 Respiratory rate 16 /min Anthony SCRUGGS [facility] 04-17-2023 08:45-0400 Systolic blood pressure 130 mm[Hg] Anthony SCRUGGS [facility] 04-05-2023 13:45-0400 Body height 168.91 cm Jamar Ball Other [employer] Other 04-05-2023 13:45-0400 Body mass index (BMI) [Ratio] 32.46 kg/m2 Jamar Ball Other [employer] Other 04-05-2023 13:45-0400 Body weight 92.63 kg Jamar Ball Other [employer] Other 04-05-2023 13:45-0400 Diastolic blood pressure 67 mm[Hg] Jamar Ball Other [employer] Other 04-05-2023 13:45-0400 Respiratory rate 12 /min Jamar Ball Other [employer] Other 04-05-2023 13:45-0400 Systolic blood pressure 109 mm[Hg] Jamar Ball Other [employer] Other 03-15-2023 08:45-0400 Body height 168.91 cm Jamar Ball Other [employer] Other 03-15-2023 08:45-0400 Body mass index (BMI) [Ratio] 32.81 kg/m2 Jamar Ball Other [employer] Other 03-15-2023 08:45-0400 Body weight 93.62 kg Jamar Ball Other [employer] Other 03-15-2023 08:45-0400 Diastolic blood pressure 69 mm[Hg] Jamar Ball Other [employer] Other 03-15-2023 08:45-0400 Respiratory rate 12 /min Jamar Ball Other [employer] Other 03-15-2023 08:45-0400 Systolic blood pressure 131 mm[Hg] Jamar [employer] Other [employer] Other 02-02-2023 09:32-0400 Body height 167.6 cm Marco A Esqueda MD Work Phone: [facility] 02-02-2023 09:32-0400 Body temperature 97.2 [degF] Marco A Esqueda MD Work Phone: [facility] 02-02-2023 09:32-0400 Body weight 96.62 kg Marco A Esqueda MD Work Phone: [facility] 02-02-2023 09:32-0400 Diastolic blood pressure 43 mm[Hg] Marco A Esqueda MD Work Phone: [facility] 02-02-2023 09:32-0400 Heart rate 50 /min Marco A Esqueda MD Work Phone: [facility] 02-02-2023 09:32-0400 Respiratory rate 16 /min Marco A Esqueda MD Work Phone: [facility] 02-02-2023 09:32-0400 SaO2% (BldA) [Mass fraction] 97 % Marco A Esqueda MD Work Phone: [facility] 02-02-2023 09:32-0400 Systolic blood pressure 131 mm[Hg] Marco A Esqueda MD Work Phone: [facility] 11-10-2022 09:30-0400 Body height 167.6 cm Christo Howard APRN.SALES AND SERVICE ENGINEER Work Phone: [facility] 11-10-2022 09:30-0400 Body temperature 97.11 [degF] Christo Howard APRN.SALES AND SERVICE ENGINEER Work Phone: [facility] 11-10-2022 09:30-0400 Body weight 96.44 kg Christo Howard APRN.SALES AND SERVICE ENGINEER Work Phone: [facility] 11-10-2022 09:30-0400 Diastolic blood pressure 68 mm[Hg] Christo Howard APRN.SALES AND SERVICE ENGINEER Work Phone: [facility] 11-10-2022 09:30-0400 Heart rate 54 /min Christo Howard APRN.SALES AND SERVICE ENGINEER Work Phone: [facility] 11-10-2022 09:30-0400 Respiratory rate 16 /min Christo Howard APRN.SALES AND SERVICE ENGINEER Work Phone: [facility] 11-10-2022 09:30-0400 SaO2% (BldA) [Mass fraction] 98 % Christo Howard APRN.SALES AND SERVICE ENGINEER Work Phone: [facility] 11-10-2022 09:30-0400 Systolic blood pressure 134 mm[Hg] Christo Howard APRN.SALES AND SERVICE ENGINEER Work Phone: [facility] 09-16-2022 08:30-0500 Body height 168.91 cm Jamar Ball Other [employer] Other 09-16-2022 08:30-0500 Body mass index (BMI) [Ratio] 33.16 kg/m2 Jamar Ball Other [employer] Other 09-16-2022 08:30-0500 Body weight 94.62 kg Jamar Ball Other [employer] Other 09-16-2022 08:30-0500 Diastolic blood pressure 78 mm[Hg] Jamar Ball Other [employer] Other 09-16-2022 08:30-0500 Respiratory rate 12 /min Jamar Ball Other [employer] Other 09-16-2022 08:30-0500 Systolic blood pressure 116 mm[Hg] Jamar Ball Other [employer] Other 09-09-2022 08:30-0500 Body height 168.91 cm Jamar Ball Other [employer] Other 09-09-2022 08:30-0500 Body mass index (BMI) [Ratio] 33.45 kg/m2 Jamar Ball Other [employer] Other 09-09-2022 08:30-0500 Body weight 95.44 kg Jamar Ball Other [employer] Other 09-09-2022 08:30-0500 Diastolic blood pressure 76 mm[Hg] Jamar Ball Other [employer] Other 09-09-2022 08:30-0500 Respiratory rate 12 /min Jaamr Ball Other [employer] Other 09-09-2022 08:30-0500 Systolic blood pressure 118 mm[Hg] Jamar Ball Other [employer] Other 09-09-2022 07:30-0500 Body height 168.91 cm Jamar Ball Other [employer] Other 09-09-2022 07:30-0500 Body mass index (BMI) [Ratio] 33.45 kg/m2 Jamar Ball Other [employer] Other 09-09-2022 07:30-0500 Body weight 95.44 kg Jamar Ball Other [employer] Other 09-09-2022 07:30-0500 Diastolic blood pressure 76 mm[Hg] Jamar Ball Other [employer] Other 09-09-2022 07:30-0500 Respiratory rate 12 /min Jamar Ball Other [employer] Other 09-09-2022 07:30-0500 Systolic blood pressure 118 mm[Hg] Jamar Ball Other [employer] Other 08-11-2022 09:24-0500 Body height 167.6 cm Marco A Esqueda MD Work Phone: [facility] 08-11-2022 09:24-0500 Body temperature 97 [degF] Marco A Esqueda MD Work Phone: [facility] 08-11-2022 09:24-0500 Body weight 96.44 kg Marco A Esqueda MD Work Phone: [facility] 08-11-2022 09:24-0500 Diastolic blood pressure 56 mm[Hg] Marco A Esqueda MD Work Phone: [facility] 08-11-2022 09:24-0500 Heart rate 53 /min Marco A Esqueda MD Work Phone: [facility] 08-11-2022 09:24-0500 Respiratory rate 16 /min Marco A Esqueda MD Work Phone: [facility] 08-11-2022 09:24-0500 SaO2% (BldA) [Mass fraction] 97 % Marco A Esqueda MD Work Phone: [facility] 08-11-2022 09:24-0500 Systolic blood pressure 129 mm[Hg] Marco A Esqueda MD Work Phone: [facility] 07-21-2022 15:30-0500 Body height 168.91 cm Jamar Ball Other [employer] Other 07-21-2022 15:30-0500 Body mass index (BMI) [Ratio] 34.18 kg/m2 Jamar Ball Other [employer] Other 07-21-2022 15:30-0500 Body weight 97.52 kg Jamar Ball Other [employer] Other 07-21-2022 15:30-0500 Diastolic blood pressure 76 mm[Hg] Jamar Ball Other [employer] Other 07-21-2022 15:30-0500 Respiratory rate 16 /min Jamar Ball Other [employer] Other 07-21-2022 15:30-0500 Systolic blood pressure 118 mm[Hg] Jamar Ball Other [employer] Other 05-13-2022 09:07-0400 Blood Pressure Location Anthony SCRUGGS [facility] 05-13-2022 09:07-0400 Diastolic blood pressure 72 mm[Hg] Anthony SCRUGGS [facility] 05-13-2022 09:07-0400 Heart rate 55 /min Anthony SCRUGGS [facility] 05-13-2022 09:07-0400 Respiratory rate 16 /min Anthonycindy SCRUGGS [facility] 05-13-2022 09:07-0400 Systolic blood pressure 108 mm[Hg] Anthony SCRUGGS [facility] 05-12-2022 10:41-0400 Body temperature 97.81 [degF] LUAN Khan MD Work Phone: [facility] 05-12-2022 10:41-0400 Body weight 95.07 kg LUAN Khan MD Work Phone: [facility] 05-12-2022 10:41-0400 Diastolic blood pressure 42 mm[Hg] LUAN Khan MD Work Phone: [facility] 05-12-2022 10:41-0400 Heart rate 51 /min LUAN Khan MD Work Phone: [facility] 05-12-2022 10:41-0400 Respiratory rate 18 /min LUAN Khan MD Work Phone: [facility] 05-12-2022 10:41-0400 SaO2% (BldA) [Mass fraction] 99 % LUAN Khan MD Work Phone: [facility] 05-12-2022 10:41-0400 Systolic blood pressure 134 mm[Hg] LUAN Khan MD Work Phone: [facility] 02-17-2022 09:36-0400 Body height 167.6 cm Marco A Esqueda MD Work Phone: [facility] 02-17-2022 09:36-0400 Body temperature 97.9 [degF] Marco A Esqueda MD Work Phone: [facility] 02-17-2022 09:36-0400 Body weight 97.07 kg Marco A Esqueda MD Work Phone: [facility] 02-17-2022 09:36-0400 Diastolic blood pressure 58 mm[Hg] Marco A Esqueda MD Work Phone: [facility] 02-17-2022 09:36-0400 Heart rate 63 /min Marco A Esqueda MD Work Phone: [facility] 02-17-2022 09:36-0400 Respiratory rate 16 /min Marco A Esqueda MD Work Phone: [facility] 02-17-2022 09:36-0400 SaO2% (BldA) [Mass fraction] 99 % Marco A Esqueda MD Work Phone: [facility] 02-17-2022 09:36-0400 Systolic blood pressure 133 mm[Hg] Marco A Esqueda MD Work Phone: [facility] 11-18-2021 10:50-0400 Body temperature 97.7 [degF] [facility] Work Phone: [facility] 11-18-2021 10:50-0400 Diastolic blood pressure 63 mm[Hg] [facility] Work Phone: [facility] 11-18-2021 10:50-0400 Heart rate 60 /min [facility] Work Phone: [facility] 11-18-2021 10:50-0400 Respiratory rate 18 /min [facility] Work Phone: [facility] 11-18-2021 10:50-0400 SaO2% (BldA) [Mass fraction] 95 % [facility] Work Phone: [facility] 11-18-2021 10:50-0400 Systolic blood pressure 139 mm[Hg] [facility] Work Phone: [facility] 11-11-2021 13:58-0400 Body height 167.6 cm Marco A Esqueda MD Work Phone: [facility] 11-11-2021 13:58-0400 Body temperature 97.39 [degF] Marco A Esqueda MD Work Phone: [facility] 11-11-2021 13:58-0400 Body weight 98.97 kg Marco A Esqueda MD Work Phone: [facility] 11-11-2021 13:58-0400 Diastolic blood pressure 54 mm[Hg] Marco A Esqueda MD Work Phone: [facility] 11-11-2021 13:58-0400 Heart rate 68 /min Marco A Esqueda MD Work Phone: [facility] 11-11-2021 13:58-0400 Respiratory rate 16 /min Marco A Esqueda MD Work Phone: [facility] 11-11-2021 13:58-0400 SaO2% (BldA) [Mass fraction] 98 % Marco A Esqueda MD Work Phone: [facility] 11-11-2021 13:58-0400 Systolic blood pressure 130 mm[Hg] Marco A Esqueda MD Work Phone: [facility] 11-08-2021 13:03-0400 Blood Pressure Location Anthony SCRUGGS [facility] 11-08-2021 13:03-0400 Diastolic blood pressure 60 mm[Hg] Anthony SCRUGGS [facility] 11-08-2021 13:03-0400 Heart rate 61 /min Anthony SCRUGGS [facility] 11-08-2021 13:03-0400 Systolic blood pressure 135 mm[Hg] Anthony SCRUGGS [facility] Encounters Encounter Date Encounter Type Care Provider Facility Start: 03-31-2025 ambulatory Anthony [place] ty:[facility] Start: 02-25-2025 End: 02-25-2025 [employer] Long Juáre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 Work Phone: [facility] Start: 02-25-2025 End: 02-25-2025 [employer]amboo [employer]sheet Longbobo Juárezer 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 Work Phone: [facility] Start: 02-25-2025 End: 02-25-2025 Office outpatient visit 15 minutes Long Juárezjorge 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 Work Phone: [facility] Comment on above: Seborrheic keratosis (Primary Dx); Melanocytic nevus of trunk; Actinic keratosis; Lentigines; Psoriasis vulgaris ; History of SCC (squamous cell carcinoma) of skin Start: 02-20-2025 End: 02-20-2025 ambulatory JAMAR FALL Facility:[facility] Start: 02-17-2025 End: 02-17-2025 [facility] Start: 2025 End: 2025 ambulatory SAUL TRACEY Facility:[facility] Start: 11-07-2024 End: 11-07-2024 ambulatory JAMAR FALL Facility:[facility] Start: 10-31-2024 End: 10-31-2024 ambulatory JAMAR FALL Facility:[facility] Start: 10-21-2024 End: 10-21-2024 ambulatory Nicole Herrera MD Facility:[facility] Start: 10-07-2024 End: 10-07-2024 ambulatory Anthony SCRUGGS Facility:[facility] Start: 10-07-2024 End: 10-07-2024 ambulatory Nicole Herrera MD Facility: [facility] Start: 09-02-2024 End: 09-02-2024 ambulatory [facility] Work Phone: Start: 09-02-2024 End: 09-02-2024 [facility]: Start: 08-30-2024 Patient encounter procedure [facility] Start: 08-08-2024 End: 08-08-2024 ambulatory [facility] [...] Start: 08-01-2024 End: 08-01-2024 ambulatory JAMAR FALL Facility:[facility] Start: 08-01-2024 Non-patient / Non-visit [facility] Work Phone: Start: 07-25-2024 End: 10-16-2024 Telephone encounter Marco A Esqueda MD Work Phone: [facility] Comment on above: Lab Orders Start: 06-10-2024 End: 06-10-2024 Patient encounter procedure [facility] Work Phone: Start: 05-09-2024 End: 05-09-2024 ambulatory [facility] Work Phone: Hematology/Oncology Comment on above: Malignant neoplasm o f prostate (HCC) (Primary Dx) Start: 05-09-2024 End: 05-09-2024 Patient encounter procedure Marco A Esqueda MD Work Phone: Hematology/Oncology Start: 05-08-2024 End: 05-08-2024 Refill Aida Luo [facility] Work Phone: [facility] Comment on above: Refill Request Start: 05-03-2024 End: 05-03-2024 ambulatory JAMAR Jessica FALL Facility:[facility] Start: 04-19-2024 End: 04-19-2024 ambulatory Anthony SCRUGGS Facility:[facility] Start: 04-19-2024 End: 04-19-2024 Patient encounter procedure Anthony SCRUGGS [facility] Start: 04-01-2024 End: 04-01-2024 Refill Marco A Esqueda MD Work Phone: Hematology/Oncology Comment on above: Refill Request Start: 04-01-2024 End: 04-01-2024 Refill Aida Luo [facility] Work Phone: [facility] Comment on above: Refill Request Start: 03-29-2024 Encounter for preprocedural cardiovascular examination [facility] Start: 03-29-2024 End: 04-01-2024 ambulatory [facility] Start: 03-29-2024 End: 04-01-2024 Encounter for other preprocedural examination [facility] Start: 03-29-2024 End: 04-01-2024 Encounter for preprocedural cardiovascular examination [facility] Start: 03-26-2024 End: 03-26-2024 ambulatory [facility] Work Phone: Start: 03-26-2024 End: 03-26-2024 Patient encounter procedure [facility] Work Phone: Start: 02-29-2024 End: 02-29-2024 ambulatory ALEXIA FRANCO Not Available Start: 02-26-2024 End: 02-26-2024 ambulatory LONG JUÁREZJORGE Not Available Start: 02-02-2024 End: 02-02-2024 ambulatory [facility] Work Phone: Hematology/Oncology Comment on above: Malignant neoplasm o f prostate (HCC) (Primary Dx) Start: 02-02-2024 End: 02-02-2024 Patient encounter procedure Lynne Rajan FITNESS SALES CONSULTANT.SALES AND SERVICE ENGINEER Work Phone: Hematology/Oncology Comment on above: Malignant neoplasm o f prostate (HCC) (Primary Dx) Start: 01-25-2024 Non-patient / [facility]visit [facility] Work Phone: Start: 11-23-2023 End: 11-23-2023 ambulatory [facility] Work Phone: Start: 11-23-2023 End: 11-23-2023 Patient encounter procedure [facility] Work Phone: Start: 11-02-2023 End: 11-02-2023 [...] 11-02-2023 Patient encounter procedure Christo Howard APRN.SALES AND SERVICE ENGINEER Work Phone: [facility] Start: 10-30-2023 Non-patient / Non-visit [facility] Work Phone: Start: 10-20-2023 End: 10-20-2023 ambulatory Anthony SCRUGGS Facility:[facility] Start: 10-20-2023 End: 10-20-2023 Patient encounter procedure Anthony SCRUGGS [facility] Start: 10-09-2023 Non-patient / Non-visit [facility] Work Phone: Start: 09-28-2023 End: 09-28-2023 ambulatory PABLO CHRISTINA Not Available Start: 09-12-2023 End: 09-12-2023 Patient encounter procedure [facility] Work Phone: Start: 09-06-2023 Non-patient / Non-visit [facility] Work Phone: Start: 08-28-2023 Bamboo flowsheet Long myrick 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 Work Phone: [facility] Start: 02-12-2024 Bamboo flowsheet Long myrick 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 Work Phone: [facility] Start: 08-28-2023 End: 08-28-2023 Patient encounter procedure Long Boo 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 Work Phone: [facility] Comment on above: Neoplasm of unspecif ied behavior of bone, soft tissue, and skin; Actinic keratosis Start: 08-28-2023 End: 08-28-2023 ambulatory LONG BOO Not Available Start: 08-24-2023 End: 08-24-2023 ambulatory Jamar Fall Other [employer] Other Start: 08-24-2023 Patient encounter procedure Jamra Fall [facility] Start: 08-04-2023 End: 08-04-2023 ambulatory Jamar Juan David Other [employer] Other Start: 08-04-2023 Telephone encounter Jamar Juan David [facility] Start: 06-22-2023 End: 06-22-2023 ambulatory [facility] Start: 06-05-2023 Telephone encounter Jamar Fall [facility] Start: 06-05-2023 End: 06-05-2023 ambulatory EMELINADEANNA ROBLESOREricka [employer] Other Start: 05-30-2023 End: 05-30-2023 ambulatory Jamar Juan David Other [employer] Other Start: 05-30-2023 Office outpatient vi sit 15 minutes Jamar Fall [facility] Start: 05-01-2023 End: 05-01-2023 ambulatory Jaamr Juan David Other [employer] Other Start: 05-01-2023 Office outpatient vi sit 15 minutes Jamar Fall [facility] Start: 04-27-2023 Telephone encounter Jamar [facility] Start: 04-27-2023 End: 04-27-2023 ambulatory [...] 04-25-2023 End: 04-25-2023 ambulatory Jamar Fall Other [employer] Other Start: 04-25-2023 Telephone encounter Jamar [facility] Start: 04-18-2023 End: 04-18-2023 ambulatory Jamar Fall Other [employer] Other Start: 04-18-2023 Telephone encounter Jamar [facility] Start: 04-17-2023 End: 04-17-2023 Patient encounter procedure Anthony SCRUGGS [facility] Start: 04-12-2023 End: 04-12-2023 ambulatory Jamar Fall Other [employer] Other Start: 04-12-2023 Telephone encounter Jamar [facility] Start: 04-06-2023 End: 04-06-2023 ambulatory Jamar Fall Other [employer] Other Start: 04-06-2023 Telephone encounter Jamar [facility] Start: 04-05-2023 End: 04-05-2023 ambulatory Jamar Fall Other [employer] Other Start: 04-05-2023 Office outpatient vi sit 15 minutes Jamar Fall [facility] Start: 04-05-2023 Telephone encounter Jamar [facility] Start: 03-15-2023 End: 03-15-2023 ambulatory Jamar Fall Other [employer] Other Start: 03-15-2023 Office outpatient vi sit 25 minutes Jamar Fall [facility] Start: 02-05-2023 End: 02-05-2023 ambulatory Jamar Fall Other [employer] Other Start: 02-05-2023 Telephone encounter Jamar Fall [facility] Start: 02-02-2023 End: 02-02-2023 ambulatory [facility] Work Phone: Hematology/Oncology Comment on above: Malignant neoplasm o f prostate (HCC) (Primary Dx) Start: 02-02-2023 End: 02-02-2023 Patient encounter procedure Marco A Esqueda MD Work Phone: [employer] Start: 11-15-2022 End: 11-15-2022 ambulatory Jamar Fall Other [employer] Other Start: 11-15-2022 Encounter by Hailo Jamar Fall [facility] Start: 11-11-2022 End: 11-11-2022 ambulatory Jamar Fall Other [employer] Other Start: 11-11-2022 Encounter by Hailo Jamar Fall [facility] Start: 11-10-2022 End: 11-10-2022 ambulatory [...] encounter procedure Christo Howard APRN.CNP Work Phone: [employer] Start: 10-25-2022 End: 10-26-[address] ANTHONY SCRUGGS . Facility:[facility] Start: 09-16-2022 End: 09-16-2022 ambulatory Jamar Flal Other [employer] Other Start: 09-16-2022 Office outpatient vi sit 15 minutes Jamar Fall [facility] Start: 09-09-2022 End: 09-09-2022 ambulatory Jamar Fall Other [employer] Other Start: 09-09-2022 Patient encounter procedure Jamar Fall [facility] Start: 09-05-2022 End: 09-06-2022 ambulatory [...] 07-21-2022 End: 07-22-[address] JAMAR FALL [employer] Other Start: 07-21-2022 Office outpatient vi sit 15 minutes Jamar Fall [facility] Start: 07-21-2022 Patient encounter procedure Jamar Fall [facility] Start: 07-21-2022 Telephone encounter Jamar EDMONDS [facility] Start: 05-27-2022 End: 05-28-2022 ambulatory NONE LISTED REQUEST Facility:[facility] Start: 05-13-2022 End: 05-13-2022 Patient encounter procedure Anthony SCRUGGS [facility] Start: 05-12-2022 End: 05-12-2022 Patient encounter procedure Zach Khan MD Work Phone: Radiation Oncology Comment on above: Malignant neoplasm o f prostate (HCC) (Primary Dx) Start: 05-12-2022 End: 05-12-2022 ambulatory [facility] [place] Work Phone: Hematology/Oncology Comment on above: Malignant [...] procedure Marco A Esqueda MD Work Phone: [employer] Start: 01-25-2022 End: 01-26-[address] DE LISTED REQUEST Facility: Start: 12-06-2021 Telephone encounter Clementine steinberg RN Work Phone: Hematology/Oncology Comment on above: Care Coordination (R efill Question) Start: 11-18-2021 End: 11-18-2021 ambulatory [facility] [place] Work Phone: Hematology/Oncology Comment on above: Malignant [...] procedure Anthony Jesus SCRUGGS [facility] Start: 11-05-2021 End: 11-06-[address] MARCO A ESQUEDA Facility:[facility] Start: 11-04-2021 ambulatory Clementine lee RN Work Phone: Hematology/Oncology Comment on above: Oral Anti-cancer Age nt Education (Enzalutamide) Start: 11-04-2021 Telephone encounter Aida Coles [facility] Work Phone: Hematology/Oncology Comment on above: Medication [...] Hematology/Oncology Comment on above: Lab Orders Start: 01-06-2022 Adult health examination Bam min Ball Other [facility] [employer] Other Procedures Date Procedure Procedure Detail Performing Clinician Start: 02-25-2025 CRYOTHERAPY SKIN LESION 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 Work Phone: Start: 08-28-2023 CRYOTHERAPY SKIN LESION [employer] 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 Work Phone: Start: 08-28-2023 SKIN / NAIL BIOPSY Windy mira [employer] 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 Work Phone: Start: 07-17-2023 Decompression of med anthony nerve Anthony SCRUGGS Start: 10-25-[address] JESE FALL Comment on above: Performed By: #### P SAD #### [facility] [address] [place], [place] [address] Dr. Bharati Aguiar Start: 05-05-[address] JESE FALL Comment on above: Performed By: #### P SAD ####[facility] [address] [place], [place] [address]WmDr. Bharati Aguiar Start: 02-16-2022 Adult depression scr [...] SCRUGGS Start: 01-09-2007 Urodynamic studies Blairer roshni SCRUGGS Start: 03-27-2006 Cystoscopy Anthony CHAVEZ Start: 08-26-2005 Cystoscopy Anthony CHAVEZ Start: 09-02-2002 Cystoscopy Anthony CHAVEZ Appendectomy Anthony SCRUGGS Colonoscopy Anthony SCRUGGS Depression screening Reddy Fall Other Plan of Treatment Date Care Activity Detail Author Start: 04-25-2034 Urine microalbumin profile DTaP,Tdap,Td Vaccine (6 - Td or Tdap) [facility] Start: 08-01-2027 Diabetes Screening Diabetes Screening [facility] Start: 05-03-2027 Diabetes Screening Diabetes Screening [facility] Start: 01-24-2027 Diabetes Screening Diabetes Screening [facility] Start: 10-29-2026 Diabetes Screening Diabetes Screening [facility] Start: 04-24-2026 Diabetes Screening Diabetes Screening [facility] Start: 02-26-2026 End: 02-26-2026 Patient encounter procedure 02/26/2026 10:25 AM EDT Office Visit [facility] [address] [place] [id number] [employer] 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 [address] [facility] Start: 02-02-2026 DIABETES SCREEN DIABETES SCREEN [facility] Start: 11-10-2025 DIABETES SCREEN DIABETES SCREEN [facility] Start: 08-11-2025 DIABETES SCREEN DIABETES SCREEN [facility] Start: 05-12-2025 DIABETES SCREEN DIABETES SCREEN [facility] Start: 03-17-2025 Influenza vaccination Influenza Vaccine (#1) [facility] Start: 02-25-2025 End: 02-25-2025 Patient encounter procedure 02/25/2025 10:20 AM EDT Office Visit [facility] [address] [place] [phone] [employer] APRN-SALES AND SERVICE ENGINEER [address] [place] [address] [facility] [facility] Comment on above: Arrived Start: 02-17-2025 DIABETES SCREEN DIABETES SCREEN [facility] Start: 11-11-2024 DIABETES SCREEN DIABETES SCREEN [facility] Start: 11-07-2024 End: 11-07-2024 Follow-up encounter [...] of insulin (HCC) Expected: 11/06/2024, Expires: 02/05/2025 [facility] Work Phone: Comment on above: Expected: [...] of insulin (HCC) Expected: 11/06/2024, Expires: 02/05/2025 [facility] Comment on above: Expected: 11/06/2024, Expires: Start: 11-06-2024 End: 02-05-2025 Prostate specific Ag [Mass/volume] in Serum or Plasma PROSTATE-SPECIFIC ANTIGEN DIAGNOSTIC Lab Routine Malignant neoplasm of prostate (HCC) Essential hypertension 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, unspecified vessel or lesion type Type 2 diabetes mellitus without complication, without long-term current use of insulin (HCC) Expected: 11/06/2024, Expires: 02/05/2025 [facility] Comment on above: Expected: 11/06/2024, Expires: Start: 10-31-2024 End: 10-31-2024 Patient encounter procedure 10/31/2024 9:00 AM EDT Office Visit [facility] [address] [place] [address] lab [facility] Comment on above: lab Start: 10-25-2024 Covid-19 Vaccine () Covid-19 Vaccine () [facility] Start: 08-08-2024 End: 08-08-2024 Follow-up encounter Hematology/Oncology Comment on above: 3 month lab follow up with xgeva inj Start: 08-01-2024 End: 08-01-2024 Patient encounter procedure 08/01/2024 9:00 AM EST Office Visit [facility] [address] [place] [address] 3 month labs [facility] Comment on above: 3 month labs Start: 07-17-2024 Advance Directive Discussion Advance Directive Discussion [facility] Start: 05-09-2024 End: 05-09-2024 Follow-up encounter Hematology/Oncology Comment on above: 3 month lab follow up with xgeva inj Start: 05-07-2024 End: 05-07-2024 Patient encounter procedure 05/07/2024 9:00 AM EDT Office Visit [facility] [address] [place] [address] 3 month lab follow up with xgeva inj [facility] Comment on above: 3 month lab follow up with xgeva inj Start: 05-03-2024 End: 05-03-2024 Patient encounter procedure 05/03/2024 9:00 AM EDT Office Visit [facility] [address] [place] [address] 3 month lab follow up with xgeva inj [facility] Comment on above: 3 month lab follow up with xgeva inj Start: 04-29-2024 End: 07-29-2024 CBC W Auto Differential panel - Blood COMPLETE BLOOD COUNT AND DIFFERENTIAL Lab Routine Malignant neoplasm of prostate (HCC) Expected: 04/29/2024, Expires: 07/29/2024 [facility] Work Phone: Comment on above: Expected: 04/29/2024, Expires: Start: 04-29-2024 End: 07-29-2024 Comprehensive metabolic 2000 panel - Serum or Plasma COMPREHENSIVE METABOLIC PANEL Lab Routine Malignant neoplasm of prostate (HCC) Expected: 04/29/2024, Expires: 07/29/2024 [facility] Comment on above: Expected: 04/29/2024, Expires: Start: 04-29-2024 End: 07-29-2024 Prostate specific Ag [Mass/volume] in Serum or Plasma PROSTATE-SPECIFIC ANTIGEN DIAGNOSTIC Lab Routine Malignant neoplasm of prostate (HCC) Expected: 04/29/2024, Expires: 07/29/2024 [facility] Comment on above: Expected: 04/29/2024, Expires: Start: 03-17-2024 Covid-19 Vaccine ( season) Covid-19 Vaccine ( season) [facility] Start: 03-17-2024 Influenza [facility] Start: 02-26-2024 End: 02-26-2024 Patient encounter procedure 02/26/2024 10:10 AM EDT Office Visit [facility] [address] [place] [address] [employer] 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 [address] [facility] Start: 11-03-2023 End: 02-02-2024 [...] ear Abdominal discomfort Expected: 11/03/2023, Expires: 02/02/2024 [facility] Work Phone: Comment on above: Expected: [...] ear Abdominal discomfort Expected: 11/03/2023, Expires: 02/02/2024 [facility] Work Phone: Comment on above: Expected: [...] ear Abdominal discomfort Expected: 11/03/2023, Expires: 02/02/2024 [facility] Work Phone: Comment on above: Expected: 11/03/2023, Expires: 4 Start: 08-28-2023 End: 08-28-2023 Patient encounter procedure 08/28/2023 11:25 AM EST Office Visit [facility] [address] [place] [phone] [employer], 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 [address] [place] [address] Arrived [facility] Comment on above: Arrived Start: 07-28-2023 End: 09-27-2023 CBC W Auto Differential panel - Blood CBC + DIFF Lab Routine Malignant neoplasm of prostate (HCC) 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, unspecified vessel or lesion type Essential hypertension Type 2 diabetes mellitus without complication, without long-term current use of insulin (HCC) Expected: 07/28/2023, Expires: 09/27/2023 [facility] Work Phone: Comment on above: Expected: [...] of insulin (HCC) Expected: 07/28/2023, Expires: 09/27/2023 [facility] Work Phone: Comment on above: Expected: [...] of insulin (HCC) Expected: 07/28/2023, Expires: 09/27/2023 [facility] Work Phone: Comment on above: Expected: 07/28/2023, Expires: 4 Start: 07-17-2023 Advance Directive Discussion Advance Directive Discussion [facility] Start: 07-17-2023 Behavioral Health Screening Behavioral Health Screening [facility] Start: 06-19-2023 Urine microalbumin profile [facility] Start: 05-03-2023 End: 07-03-2023 Basic metabolic 2000 panel - Serum or Plasma BASIC METABOLIC PNL Lab Routine Malignant neoplasm of prostate (HCC) Expected: 05/03/2023 (Approximate), Expires: 07/03/2023 [facility] Work Phone: Comment on above: Expected: 05/03/2023 (Approximate), Expi res: 07/03/2023 Start: 05-03-2023 End: 07-03-2023 CBC W Auto Differential panel - Blood CBC + DIFF Lab Routine Malignant neoplasm of prostate (HCC) Expected: 05/03/2023 (Approximate), Expires: 07/03/2023 [facility] Work Phone: Comment on above: Expected: 05/03/2023 (Approximate), Expi res: 07/03/2023 Start: 05-03-2023 End: 07-03-2023 Prostate specific Ag [Mass/volume] in Serum or Plasma PSA/PROSTSPECAG DIAG Lab Routine Malignant neoplasm of prostate (HCC) Expected: 05/03/2023 (Approximate), Expires: 07/03/2023 [facility] Work Phone: Comment on above: Expected: 05/03/2023 (Approximate), Expi res: 07/03/2023 Start: 05-03-2023 End: 07-03-2023 Testosterone [Mass/volume] in Serum or Plasma TESTOSTERONE TOTAL Lab Routine Malignant neoplasm of prostate (HCC) Expected: 05/03/2023 (Approximate), Expires: 07/03/2023 [facility] Work Phone: Comment on above: Expected: 05/03/2023 (Approximate), Expi res: 07/03/2023 Start: 03-17-2023 Covid-19 Vaccine () Covid-19 Vaccine () [facility] Start: 03-17-2023 Influenza vaccination [facility] Start: 02-16-2023 Adult depression screening assessment DEPRESSION SCREENING [facility] Start: 02-09-2023 End: 04-11-2023 CBC W Auto Differential panel - Blood CBC + DIFF Lab Routine Malignant neoplasm of prostate (HCC) 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, unspecified vessel or lesion type Essential hypertension Type 2 diabetes mellitus without complication, without long-term current use of insulin (HCC) Expected: 02/09/2023, Expires: 04/11/2023 [facility] Work Phone: Comment on above: Expected: [...] of insulin (HCC) Expected: 02/09/2023, Expires: 04/11/2023 [facility] Work Phone: Comment on above: Expected: [...] of insulin (HCC) Expected: 02/09/2023, Expires: 04/11/2023 [facility] Work Phone: Comment on above: Expected: 02/09/2023, Expires: 3 Start: 11-10-2022 Adult depression screening assessment DEPRESSION SCREENING [facility] Start: 08-22-2022 COVID-19 VACCINE (6 - Moderna series) COVID-19 VACCINE (6 - Moderna series) [facility] Start: 07-17-2022 ADVANCE DIRECTIVE DISCUSSION ADVANCE DIRECTIVE DISCUSSION [facility] Start: 07-17-2022 DEPRESSION ASSESSMENT DEPRESSION ASSESSMENT [facility] Start: 05-03-2022 Adult depression screening assessment DEPRESSION SCREENING [facility] Start: 05-03-2022 End: 07-03-2022 CBC W Auto Differential panel - Blood CBC + DIFF Lab Routine Malignant neoplasm of prostate (HCC) Expected: 05/03/2022, Expires: 07/03/2022 [facility] Work Phone: Comment on above: Expected: 05/03/2022, Expires: 2 Start: 05-03-2022 End: 07-03-2022 Comprehensive metabolic 2000 panel - Serum or Plasma COMP METABOLIC PANEL Lab Routine Malignant neoplasm of prostate (HCC) Expected: 05/03/2022, Expires: 07/03/2022 [facility] Work Phone: Comment on above: Expected: 05/03/2022, Expires: 2 Start: 05-03-2022 End: 07-03-2022 Prostate specific Ag [Mass/volume] in Serum or Plasma PSA/PROSTSPECAG DIAG Lab Routine Malignant neoplasm of prostate (HCC) Expected: 05/03/2022, Expires: 07/03/2022 [facility] Work Phone: Comment on above: Expected: 05/03/2022, Expires: 2 Start: 03-17-2022 Influenza vaccination [facility] Start: 11-02-2021 End: 01-02-2022 CBC W Auto Differential panel - Blood CBC + DIFF Lab Routine Malignant neoplasm of prostate (HCC) Expected: 11/02/2021, Expires: 01/02/2022 [facility] Work Phone: Comment on above: Expected: 11/02/2021, Expires: 2 Start: 11-02-2021 End: 01-02-2022 Comprehensive metabolic 2000 panel - Serum or Plasma COMP METABOLIC PANEL Lab Routine Malignant neoplasm of prostate (HCC) Expected: 11/02/2021, Expires: 01/02/2022 [facility] Work Phone: Comment on above: Expected: 11/02/2021, Expires: 2 Start: 09-14-2021 COVID-19 VACCINE (5 - Booster) COVID-19 VACCINE (5 - Booster) [facility] Start: 08-17-2021 COVID-19 VACCINE (4 - Booster for Moderna series) COVID-19 VACCINE (4 - Booster for Moderna series) [facility] Start: 07-17-2021 ADVANCE DIRECTIVE DISCUSSION ADVANCE DIRECTIVE DISCUSSION [facility] Start: 07-17-2021 DEPRESSION ASSESSMENT DEPRESSION ASSESSMENT [facility] Start: 02-22-2021 COVID-19 VACCINE (3 - Booster for Moderna series) COVID-19 VACCINE (3 - Booster for Moderna series) [facility] Start: 06-07-2015 PNEUMOVAX AGE 65 AND OVER WITH 5YR LOOKBACK (#1) PNEUMOVAX AGE 65 AND OVER WITH 5YR LOOKBACK (#1) [facility] Start: 06-20-2013 Urine microalbumin profile DTAP,TDAP,TD (1 - Tdap) [facility] Start: 08-22-2012 SHINGRIX VACCINE (2 of 3) SHINGRIX VACCINE (2 of 3) [facility] Start: 2006 RSV Vaccine (1 - 1-dose 60+ series) RSV Vaccine (1 - 1-dose 60+ series) [facility] Start: 02-14-1996 SHINGRIX VACCINE (1 of 2) SHINGRIX VACCINE (1 of 2) [facility] Start: 1991 COLOGUARD (FIT-DNA) COLOGUARD (FIT-DNA) [facility] Start: 1991 Colonoscopy COLONOSCOPY [facility] Start: 1991 COLORECTAL CANCER SCREENING COLORECTAL CANCER SCREENING [facility] Start: [address] COLONOGRAPHY [facility] Start: 1991 DIABETES SCREEN DIABETES SCREEN [facility] Start: 1991 FECAL OCCULT BLOOD FECAL OCCULT BLOOD [facility] Start: 1991 SIGMOIDOSCOPY SIGMOIDOSCOPY [facility] Start: 1981 LIPID SCREEN LIPID SCREEN [facility] Start: 02-14-1964 Anxiety Screening Anxiety Screening [facility] Start: 02-14-1964 Depression Screening Depression Screening [facility] Start: 02-14-1964 HEPATITIS C SCREENING HEPATITIS C SCREENING [facility] Start: 02-14-1964 Hepatitis C screening Hepatitis C Screening [facility] Dermatopathology exam Dermatopat hology exam Pathology and Cytology Timed Neoplasm of unspecified behavior of bone, soft tissue, and skin Release Upon Ordering for 1 Occurrences starting 08/28/2023 [facility] [employer] Work Phone: Comment on above: Release Upon Ordering for 1 Occurrences starting 08/28/2023 MR Cervical spine WO contrast [facility] US Extremity 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: [facility] 05-01-2023 influenza virus vaccine, unspecified formulation [facility] 05-01-2023 influenza, high dose seasonal, preservative-free Jamar Fall Other [facility] 04-28-2022 influenza nasal, unspecified formulation [facility] Work Phone: [facility] 04-28-2022 influenza, high-dose , quadrivalent vaccine (FLUZONE HIGH DOSE QUADRIVALENT) [facility] Work Phone: [facility] 04-28-2022 influenza, high dose seasonal, preservative-free Jamar Fall Other [facility] 04-28-2022 influenza virus vaccine, unspecified formulation [facility] Work Phone: [facility] 04-21-2022 COVID-19 booster vaccine, age 12+ yr, bivalent (MODERNA) Lab/[facility] Work Phone: [facility] Comment on above: Result Comment: 2023: [id number] 01-21-2022 COVID-19 Vaccine Moderna - Documentation Purposes Only Jamar Fall Other [facility] Comment on above: Result Comment: 2023: [id number] 05-17-2021 COVID-19 Vaccine Moderna - Documentation Purposes Only Jamar Fall Other [facility] Comment on above: Result Comment: 2023: [id number] 04-22-2021 influenza virus vaccine, split virus (incl. purified surface antigen) Jamar Fall Other [facility] 04-22-2021 influenza virus vaccine, unspecified formulation [facility] 04-16-2021 influenza nasal, unspecified formulation Marco A Esqueda MD Work Phone: [facility] 04-16-2021 influenza virus vaccine, unspecified formulation Anthony SCRUGGS [facility] 09-22-2020 COVID-19 Vaccine Moderna - Documentation Purposes Only Jamar Fall Other [facility] 08-26-2020 SARS-CoV-2 (COVID-19 ) Ad26 vaccine, recombinant Anthonycindy SCRUGGS [facility] 08-24-2020 COVID-19 original vaccine, full dose, monovalent (MODERNA) [facility] Work Phone: [facility] 07-17-2020 SARS-CoV-2 (COVID-19 ) [id number] vaccine Anthony SCRUGGS [facility] Comment on above: Result Comment: pt d oes not know the dates but states that he is fully vaccinated 04-23-2020 influenza virus vaccine, split virus (incl. purified surface antigen) Jamar Fall Other [facility] 04-23-2020 influenza virus vaccine, unspecified formulation [facility] 04-22-2019 influenza virus vaccine, split virus (incl. purified surface antigen) Jamar Fall Other [facility] 04-22-2019 influenza virus vaccine, unspecified formulation [facility] 04-16-2019 influenza nasal, unspecified formulation Marco A Esqueda MD Work Phone: [facility] 08-20-2018 zoster vaccine recombinant Marco A Esqueda MD Work Phone: [facility] 06-11-2018 zoster vaccine recombinant Marco A Esqueda MD Work Phone: [facility] 04-16-2018 influenza nasal, unspecified formulation Marco A Esqueda MD Work Phone: [facility] 03-27-2018 [id number] adjuvant [facility] [facility] Work Phone: [facility] 03-27-2018 influenza nasal, unspecified formulation [facility] [place] [place] Work Phone: [facility] 03-27-2018 influenza virus vaccine, split virus (incl. purified surface antigen) Jamar Fall Other [employer] Other 03-27-2018 influenza virus vaccine, unspecified formulation Anthony SCRUGGS [facility] 03-27-2018 Seasonal trivalent influenza vaccine, adjuvanted, preservative free Marco A Esqueda MD Work Phone: [facility] 06-12-2017 pneumococcal polysaccharide vaccine, 23 valent Marco A Esqueda MD Work Phone: [facility] 06-01-2017 pneumococcal polysaccharide vaccine, 23 valent Jamar Fall Other [facility] 06-01-2017 Prevnar 20 Jamar Fall Other [facility] 05-31-2017 influenza nasal, unspecified formulation [facility] Work Phone: [facility] 05-31-2017 influenza virus vaccine, unspecified formulation Anthony SCRUGGS [facility] 05-31-2017 influenza, injectabl e, quadrivalent, preservative free Marco A Esqueda MD Work Phone: [facility] 04-03-2017 influenza nasal, unspecified formulation [facility] Work Phone: [facility] 04-03-2017 influenza virus vaccine, split virus (incl. purified surface antigen) Jamar Fall Other [employer] Other 04-03-2017 influenza virus vaccine, unspecified formulation Anthony SCRUGGS [facility] 04-03-2017 influenza, high dose seasonal, preservative-free Marco A Esqueda MD Work Phone: [facility] 03-23-2017 influenza nasal, unspecified formulation Marco A Esqueda MD Work Phone: [facility] 04-01-2016 influenza virus vaccine, split virus (incl. purified surface antigen) Jamar Fall Other [facility] 04-01-2016 influenza virus vaccine, unspecified formulation [facility] 03-31-2016 influenza nasal, unspecified formulation Marco A Esqueda MD Work Phone: [facility] 05-11-2015 influenza nasal, unspecified formulation Marco A Esqueda MD Work Phone: [facility] 05-11-2015 influenza, seasonal, injectable, preservative free [place] Work Phone: [facility] 05-11-2015 pneumococcal conjuga te vaccine, 13 valent Marco A Esqueda MD Work Phone: [facility] 04-29-2015 pneumococcal polysaccharide vaccine, 23 valent Marco A Esqueda MD Work Phone: [facility] 06-09-2014 influenza nasal, unspecified formulation [facility] Work Phone: [facility] 06-09-2014 influenza, seasonal, injectable, preservative free Marco A Esqueda MD Work Phone: [facility] 06-19-2013 diphtheria, tetanus toxoids and acellular pertussis vaccine, unspecified formulation Marco A Esqueda MD Work Phone: [facility] 06-19-2013 tetanus and diphther ia toxoids, not adsorbed, for adult use Marco A Esqueda MD Work Phone: [facility] 05-23-2013 influenza nasal, unspecified formulation Marco A Esqueda MD Work Phone: [facility] 04-24-2013 tetanus and diphther ia toxoids, adsorbed, preservative free, for adult use (5 Lf of tetanus toxoid and 2 Lf of diphtheria toxoid) Jamar Fall Other [facility] 06-27-2012 zoster vaccine, live Marco A lake MD Work Phone: [facility] 06-11-2012 influenza nasal, unspecified formulation Marco A Esqueda MD Work Phone: [facility] 06-02-2011 influenza nasal, unspecified formulation Marco A Esqueda MD Work Phone: [facility] 06-23-2010 pneumococcal polysaccharide vaccine, 23 valent Jamar Fall Other [facility] 06-07-2010 pneumococcal polysaccharide vaccine, 23 valent Marco A Esqueda MD Work Phone: [facility] 06-07-2010 pneumococcal vaccine , unspecified formulation Marco A Esqueda MD Work Phone: [facility] 05-28-2010 influenza nasal, unspecified formulation Marco A Esqueda MD Work Phone: [facility] 01-14-2010 pneumococcal polysaccharide vaccine, 23 valent Jamar Fall Other [facility] 05-25-2009 influenza nasal, unspecified formulation Marco A Esqueda MD Work Phone: [facility] 06-09-2008 influenza nasal, unspecified formulation Marco A Esqueda MD Work Phone: [facility] 07-23-2003 influenza virus vaccine, whole virus Marco A Esqueda MD Work Phone: [facility] 01-14-2003 diphtheria, tetanus toxoids and acellular pertussis vaccine, unspecified formulation Jamar Fall Other [facility] 01-10-2003 TD(adult) unspecifie d formulation Marco A Esqueda MD Work Phone: [facility] 07-03-2002 influenza nasal, unspecified formulation Marco A Esqueda MD Work Phone: [facility] Payers Date Payer Category Payer Private Health Insurance [id number] 2019 Unknown MMO MMO MEDICARE SUPPLEMENT [id number] 2019-Present [phone] [address] [place] [address] Indemnity [id number] 2019 Unknown [id number]. [id number] 2011 Medicare MEDICARE MEDICAR E A AND B [id number] 2011-Present [phone] [address] [address] [place] [address] Medicare [id number] 2011 Medicare [id number] 1959 Medicare [id number] [id number] 1959 Self-pay 1959 Unknown [id number] 2.16.840.1.130022.19 1946 Unknown [id number] 2.16.840.1.818496.3.579.2. 593 1946 Unknown [id number] 2.16.840.1.839409.3.579.2. 593 1946 Unknown [id number] 2.16.840.1.987724.3.579.2. 593 1946 Unknown [id number] 2.16.840.1.348549.3.579.2. 593 1946 Unknown [id number] 2.16.840.1.827086.3.579.2. 593 1946 Unknown [id number] 2.16.840.1.296307.3.579.2. 1259 1946 Unknown [id number] 2.16.840.1.087067.3.579.2. 1259 1946 Unknown [id number] 2.16.840.1.953138.3.579.2. 125 1946 Unknown [id number] 2.16.840.1.733425.3.579.2. 125 1946 Unknown [id number] 2.16.840.1.780646.3.579.2. 125 1946 Unknown [id number] 2.16.840.1.191946.3.579.2. 727 1946 Unknown [id number] 2.16.840.1.853663.3.579.2. 1946 Unknown [id number] 2.16.840.1.247819.3.579.2. 72 1946 Unknown [id number] 2.16.840.1.657055.3.579.2. 72 1946 Unknown [id number] 2.16.840.1.014386.3.579.2. 196 1946 Unknown [id number] 2.16.840.1.318530.3.579.2. 196 1946 Unknown [id number] 2.16840.1.202854.3.579.2. 196 Unknown [id number] 2.16840.1.960966.3.579.2. 593 Unknown [id number] 2.16840.1.077277.3.579.2. 593 Unknown [id number] 2.16840.1.491733.3.579.2. 593 Social History Date Type Detail Facility Start: 11-08-2021 End: 06-04-2023 Tobacco smoking status NHIS Never smoked tobacco [facility] Start: 10-25-2021 End: 02-25-2025 Alcohol intake Current drinker of alcohol (finding) [facility] Start: 08-19-2014 History SDOH Alcohol Comment 1 day/wk [facility] Start: 1945 Sex Assigned At Not on file [facility] Start: 10-18-2021 End: 05-12-2022 Exposure to SARS-CoV-2 (event) Not sure [facility] Tobacco smoking status Never [facility] [employer] Start: 02-02-2023 End: 02-26-2024 Sex Assigned At Male [facility] [employer] Start: 1945 Sex Assigned At Male [facility] Start: 01-12-2018 End: 06-04-2023 Tobacco use and exposure Smokeless tobacco non-user [facility] Start: 02-02-2023 End: 02-26-2024 History of Social function [facility] Start: 02-11-2022 Gender identity Identifies as male gender (finding) [facility] Start: 02-11-2022 Sexual orientation Heterosexual (fin ding) [facility] How often to you hav e [...] 09-06-2023 Tobacco smoking status NHIS Ex-smoker (finding) [facility] Start: 09-02-2024 Sex Male (finding) [facility] NEGATED: Highlighted rowStart: ARPITA History of tobacco use Passive smoker [facility] Medical Equipment Procedure Code Equipment Code Equipment Origin al Text Equipment Identifier Dates Start: 10-26-2021 End: 05-12-2022 Comment on above: 1 Each once daily. T o test blood sugars 1 Each once daily. T o test blood sugar Blood Sugar Diagnostic (Contour Next Test Strips) strip Start: 10-10-2023 Lancets (Lancets,Thin) [facility] Start: 09-08-2023 Blood Sugar Diagnostic (Contour Next Test Strips) strip Start: 09-08-2023 End: 10-10-2023 Blood Sugar Diagnostic (Contour Next Test Strips) strip Start: 10-10-2023 Lancets (Lancets,Thin) [facility] Start: 09-08-2023 Blood Sugar Diagnostic (Contour Next Test Strips) strip Start: 09-08-2023 End: 10-10-2023 Blood Sugar Diagnostic (Contour Next Test Strips) strip Start: 10-10-2023 [facility] Start: 09-08-2023 Blood Sugar Diagnostic (Contour Next Test Strips) strip Start: 09-08-2023 End: 10-10-2023 Functional Status Date Assessment Result Facility 04-19-2024 Functional Status N/A [facility] 10-20-2023 Functional Status N/A [facility] 04-17-2023 Functional Status N/A [facility] 05-13-2022 Functional Status N/A [facility] 08-19-2014 Are you deaf, or do you have serious difficulty hearing No 08/19/2014 10:35 AM Santiago Mills LPN No [facility] 08-19-2014 Are you blind, or do you have serious difficulty seeing, even when wearing glasses Yes 08/19/2014 10:35 AM Santiago Mills LPN Yes [facility] 08-19-2014 Do you have serious difficulty walking or climbing stairs No 08/19/2014 10:35 AM Santiago Mills LPN No [facility] 08-19-2014 Do you have difficul ty dressing or bathing No 08/19/2014 10:35 AM Santiago Mills LPN No [facility] 08-19-2014 Because of a physica l, mental, or emotional condition, do you have difficulty doing errands alone such as visiting a physician's office or shopping No 08/19/2014 10:35 AM Santiago Mills LPN No [facility] Mental Status Date Assessment Result Facility 08-19-2014 Because of a physica l, mental, or emotional condition, do you have serious difficulty concentrating, remembering, or making decisions No 08/19/2014 10:35 AM Santiago Mills SENIOR SALES DIRECTOR No [facility] Clinical Notes 07-17-2014 to 02-25-2025 Long Boo APRN-ALEXA - 02/25/2025 10:20 AM Christo Grissom APRN.ALEXA - 08/07/2024 10:42 AM ESTTelephone Encounter - [...] Left Posterior Neck, Left Preauricular Area, Left Mosque, Left Temporal Scalp, Right Forehead, Right Parotid Area, Right [place] (2) Erythematous scaly papules Patient was counseled [...] limited to risks of scarring, darker or hardscape foreman pigmentary changes, recurrence, incomplete removal and infection. [...] Left Posterior Neck, Left Preauricular Area, Left Mosque, Left Temporal Scalp, Right Forehead, Right Parotid Area, Right [place] (2) Related Medications fluorouracil (Efudex) 5 % [...] (SQUAMOUS CELL CARCINOMA) OF SKIN Right [place] No evidence of recurrence at SCC scar. [...] year, skin check documented in this encounter [facility] 02-20-2025 Note HNO ID: [id number] Author: SAUL TRACEY MD Service: ? Author Type: Physician Type: Progress Notes Filed: 02/20/2025 10:48 Note Text: NAME: Pablo Felix CLINIC NO.: [id number] DATE OF SERVICE: February 20, 2025 (Sapphiremiguel) Some elements in this clinic note that are critical to medical decision making have been carefully reviewed and included from a prior clinic note dated: 11/07/2024 (Dheeraj) Referring Provider: RADHA Additional Clinicians involved in Pablo Felix's care: Dr. Jamar Fall, Dr. Anthony Scruggs, Dr. Khan, [facility] Cardiology DIAGNOSIS: Metastatic prostate cancer CASE SUMMARY / ASSESSMENT: 80 year old man with. 1. Metastatic prostate cancer (HCC) - ICD9: 185, ICD10: C61 (primary diagnosis) The patient was diagnosed with early-stage high-grade prostate cancer in June 2014 (TRUS biopsy 07/02/2014). He underwent a radical prostatectomy on 11/05/2014. Pathology consistent with stage IIIC (pT2b, N0, M0), Painter 5+4 equal 9. 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 Stable on current medications. Continue [...] - Continue current (more content not included)... [facility] 11-06-2024 Note HNO ID: [id number] Author: MARCO A ESQUEDA MD Service: ? Author Type: Physician Type: Progress Notes Filed: 11/07/2024 14:08 Note Text: PATIENT NAME: Pablo Felix DATE: 11/07/2024 PRIMARY CARE PHYSICIAN: Dr. Jamar Fall OTHER PHYSICIANS: Dr. Anthony Scruggs, Dr. Khan, [facility] Cardiology Portions of this encounter [...] mg 24 hr tablet Take by mouth. Sfmsmdqfnwfmp-Tqyzqfid-Pvlhpk (MULTIVITAMIN 50 PLUS) tab Take 1 tablet [...] Radical retropubic prostatectomy and bilateral pelvic lymphadenectomy ([facility]) Poorly differentiated prostatic adenocarcinoma of left [...] 10/25/2021 2.64 12/15 (more content not included)... [facility] 10-07-2024 Note Patient Education Oncology Hormone Suppression [...] cancer. Where to find more information ??? [employer]: www.cancer.org ??? National Cancer Hunker: www.cancer.gov Contact a health care provider if: [...] confused. ??? You (more content not included)... [facility] 08-07-2024 Note HNO ID: [id number] Author: CHRISTO HOWARD APRN.ALEXA Service: ? Author Type: Nurse Practitioner Type: Progress Notes Filed: 08/08/2024 12:09 Note Text: PATIENT NAME: Pablo Felix DATE: 08/08/2024 PRIMARY CARE PHYSICIAN: Dr. Jamar Fall OTHER PHYSICIANS: Dr. Anthony Scruggs, Dr. Khan, [facility] Cardiology Portions of this encounter [...] mg 24 hr tablet Take by mouth. Vauowkurgrtvw-Hgkgprbn-Ojfpxn (MULTIVITAMIN 50 PLUS) tab Take 1 tablet [...] Radical retropubic prostatectomy and bilateral pelvic lymphadenectomy ([facility]) Poorly differentiated prostatic adenocarcinoma of left [...] 1.58 10/25/2021 2.6 (more content not included)... [facility] 08-07-2024 History of Present illness Narrative PATIENT NAME: Pablo Felix DATE: 08/08/2024 PRIMARY CARE PHYSICIAN: Dr. Jamar Fall OTHER PHYSICIANS: Dr. Anthony Scruggs, Dr. Khan, [facility] Cardiology Portions of this encounter [...] mg 24 hr tablet Take by mouth. Kgwrcrthqxfxb-Dqgixwvh-Odpfjm (MULTIVITAMIN 50 PLUS) tab Take 1 tablet [...] Radical retropubic prostatectomy and bilateral pelvic lymphadenectomy ([facility]) Poorly differentiated prostatic adenocarcinoma of left [...] 08/01/2024 0.19 RADIOLOGY/OTHER STUDIES: 11/05/2021 CT chest/abdomen/pelvis ([facility]) Several sclerotic lesions consistent with metastatic disease. No evidence of visceral organ involvement or lymphadenopathy. 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 01/22/2018 Nuclear bone scan ([facility]) New focal increased activity left frontal bone, left T8 vertebral body. 01/22/2018 MRI pelvis ([facility]) 4.5 cm area of T2 signal in the prostate bed. 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 Stable on current medications. Continue [...] scan monitoring. Christo Howard APRN.CNP CC: Dr. Anthoyn Scruggs I spent a total of 30 minutes on the date of the service which included preparing to see the patient, xluc-se-lwlu patient care, completing clinical documentation, obtaining and/or reviewing separately obtained history, performing a medically appropriate examination, counseling and educating the patient/family/caregiver, ordering medications, tests, or procedures, independently interpreting results (not separately reported), and communicating results to the patient/family/caregiver. documented in this encounter [facility] 07-25-2024 Telephone encounter Note Patient on lab schedule 08/01/24 for lab only prior to RV. Please review and place needed order. Thank you, Gabi Ortiz MLT [facility] 07-25-2024 Miscellaneous Notes Patient on lab schedule 08/01/24 for lab only prior to RV. Please review and place needed order. Thank you, Gabi Otriz MLT documented in this encounter [facility] 06-10-2024 Evaluation note Diagnosis Onset Date [...] diabetes mellitus with hyperglycemia acute August 9:28am [facility] Work Phone: [phone] Telephone encounter Note* Telephone Encounter - Aida Luo RPh - 05/08/2024 8:53 AM EDT This prescription confirms Pablo' re-enrollment in the Xtandi free drug program for 2024. Thank you Josh Luo PharmD, BCOP [facility] Work Phone: [phone] 507-182110-23-2024 Miscellaneous Notes* Telephone Encounter - Aida Luo RPh - 05/08/2024 8:53 AM EDT This prescription confirms Pablo' re-enrollment in the Xtandi free drug program for 2024. Thank you Josh Luo PharmD, BCOP [facility] NoteHNO ID: [id number] Author: MARCO A ESQUEDA MD Service: ? Author Type: Physician Type: Progress Notes Filed: 05/10/2024 07:40 Note Text: PATIENT NAME: Pablo Felix DATE: 05/09/2024 PRIMARY CARE PHYSICIAN: Dr. Jamar Fall OTHER PHYSICIANS: Dr. Anthony Scruggs, Dr. Khan, [facility] Cardiology Portions of this encounter [...] mg 24 hr tablet Take by mouth. Dwvxfuvfxljor-Ieumigjf-Czbvzy (MULTIVITAMIN 50 PLUS) tab Take 1 tablet [...] Radical retropubic prostatectomy and bilateral pelvic lymphadenectomy ([facility]) Poorly differentiated prostatic adenocarcinoma of left [...] 08/11/2022 0.11 10/25/2022 0.1 (more content not included)...[facility]10-23-[facility] History of Present illness Narrative* Marco A Esqueda MD - 05/08/2024 8:13 AM EDT PATIENT NAME: Pablo Felix DATE: 05/09/2024 PRIMARY CARE PHYSICIAN: Dr. Jamar Fall OTHER PHYSICIANS: Dr. Anthony Scruggs, Dr. Khan, [facility] Cardiology Portions of this encounter [...] mg 24 hr tablet Take by mouth. Uvihcfdyjtyem-Xqdlebcl-Hzbbtf (MULTIVITAMIN 50 PLUS) tab Take 1 tablet [...] Radical retropubic prostatectomy and bilateral pelvic lymphadenectomy ([facility]) Poorly differentiated prostatic adenocarcinoma of left [...] 05/03/2024 0.18 RADIOLOGY/OTHER STUDIES: 11/05/2021 CT chest/abdomen/pelvis ([facility]) Several sclerotic lesions consistent with metastatic disease. No evidence of visceral organ involvement or lymphadenopathy. 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 01/22/2018 Nuclear bone scan ([facility]) New focal increased activity left frontal bone, left T8 vertebral body. 01/22/2018 MRI pelvis ([facility]) 4.5 cm area of T2 signal in the prostate bed. 07/24/2014 CT abdomen/[place]vis [place] Diffuse prostatic enlargement with indentation of the bladder base. Incidental 2.5 x 1 cm exophytic hypodense lesion adjacent to the pancreatic body. ASSESSMENT/PLAN: 1. Metastatic prostate cancer (HCC) - ICD9: 185, ICD10: C61 (primary diagnosis) The patient was diagnosed with early-stage high-grade prostate cancer in June 2014 (TRUS tombsr3407/02/2014). He underwent a radical prostatectomy on 11/05/2014. 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 Stable on current medications. Continue [...] CC: Dr. Anthony Scruggs [facility] Hospital Discharge instructions Patient Education 04/19/2024 [...] under a microscope. This is called the Painter score and the total score can range from 6 10, indicating how likely it is that the cancer will spread (metastasize) to other parts of the body. The higher the score, the greater thelikelihood that the cancer will spread. Lucrecia 6 or lower: This indicates that the cancer cells look similar to normal prostate cells (well differentiated). Painter 7: This indicates that the cancer cells [...] stress of having cancer. General instructions Take ouwh-mof-hrrvkcb and prescription medicines only as told by your health care provider. If you have to go to the hospital, notify your cancer specialist (oncologist). Keep all follow-up visits. This is important. Where to find more information [employer]: www.cancer.org [employer] [place] Society of Clinical Oncology: www.cancer.net National Cancer Hunker: www.cancer.gov Contact a health care provider if: [...] provider. Document Revised: 09/29/2021 Document Reviewed: 09/29/2021 [employer] Patient Education 2023 [employer]. Follow Up Care 10/20/2023 09:58:12 With:KAEL JAMES, Anthony Lee, URL Address: [address] [place], [place] [address]- When: Unknown [facility] 10-04-2024 NotePatient Education Oncology Prostate Cancer The [...] thelikelihood that the cancer will spread. ? Painter 6 or lower: This indicates that the cancer cells look similar to normal prostate cells (well differentiated). ? Painter 7: This indicates that the cancer cells look somewhat similar to normal prostate cells (moderately differentiated). ? Painter 8, 9, or 10: This indicates that [...] implanted intothe prostate gla (more content not included)...[facility]09-16-2024 Telephone encounter Note* Telephone Encounter - Aida Luo RPh - 04/01/2024 3:59 PM EDT Recd phone call from [facility] that they are unable to obtain the Xtandi 80mg tablets a thistime and requested a script for the 40 mg dosing. Order pending Josh Luo, RodolfoD, BCOP [facility] Work Phone: [phone] Miscellaneous Notes* Telephone Encounter - Aida Luo RPh - 04/01/2024 3:59 PM EDT Recd phone call from [facility] that they are unable to obtain the Xtandi 80mg tablets a thistime and requested a script for the 40 mg dosing. Order pending Josh Luo, Jose Enrique, BCOP documented in [facility] encounter[facility]24 NoteCoronary artery disease is stable, no concerning symptoms currently overall is doing well he is planning bilateral carpal tunnel surgery soon with Dr. Charlton. Continue GDMT-continue aspirin, Lipitor, metoprolol, and lisinopril continue risk factor modifications- heart healthy diet, regular exercise as tolerated and continue all medications.[facility] 03-29-2024 NoteHypertension is well-controlled at 127/51 Continue lisinopril/hydrochlorothiazide and metoprolol. Renal function normalUnProtestant [facility]acon[facility]09-13-2024 NoteLipid abnormalities are stable continue Lipitor 40 mg daily lipid profile is well-controlled and liver function is normalUnProtestant [facility] 03-29-2024 NoteReviewed echocardiogram from July 08 moderate aortic stenosis noted and reviewed echo with patient and his No concerning symptoms at this time patient would like symptoms including palpitations, lightheaded dizziness, syncope, chest pain, worsening shortness of breath and he voiced understanding Monitor with echocardiogramUnProtestant Deaconess [facility]09-13-2024 Note RCRI=1 points Class II Risk 6.0 % 30-day risk of , OR, or cardiac arrest From a cardiac perspective pt may proceed with carpal tunnel surgery, he is a moderate risk for a low risk surgery. She may hold aspirin 5-7 days prior and resume post op. Please monitor hemodynamics carefully and prevent any major fluid shifts.[facility]09-13-2024 NotePt is here for surgery clearance. Pt denies chest pain, sob, palpatations Review of Systems Musculoskeletal: Positive for arthritis, back pain, joint pain and myalgias. All other systems reviewed and are negative.[facility] 03-29-2024 NoteUTP CARDIOLOGY PROGRESS NOTE HPI: Pablo [...] AV stenosis and regur (more content not included)...[facility]07-19-2024 Instructions* Patient Instructions* Lynne Rajan APRN.CNP - [...] troubles swallowing, increasing confusion [facility] History of Present illness Narrative* Lynne Rajan APRN.CNP - 02/02/2024 11:30 AM EDT PATIENT NAME: Pablo Felix DATE: February 02, 2024 PRIMARY CARE PHYSICIAN: Dr. Jamar Fall OTHER PHYSICIANS: Dr. Anthony Scruggs, Dr. Khan, [facility] Cardiology This note was copied [...] mg 24 hr tablet Take by mouth. Zfryivnvsjyer-Ssjjmsgw-Eooviy (MULTIVITAMIN 50 PLUS) tab Take 1 tablet [...] Radical retropubic prostatectomy and bilateral pelvic lymphadenectomy ([facility]) Poorly differentiated prostatic adenocarcinoma of left [...] 01/25/2024 0.15 RADIOLOGY/OTHER STUDIES: 11/05/2021 CT chest/abdomen/pelvis ([facility]) Several sclerotic lesions consistent with metastatic disease. No evidence of visceral organ involvement or lymphadenopathy. 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 01/22/2018 Nuclear bone scan ([facility]) New focal increased activity left frontal bone, left T8 vertebral body. 01/22/2018 MRI pelvis ([facility]) 4.5 cm area of T2 signal in the prostate bed. 07/24/2014 CT [place]vis [place] Diffuse prostatic enlargement with indentation of the bladder base. Incidental 2.5 x 1 cm exophytic hypodense lesion adjacent to the pancreatic body. ASSESSMENT/PLAN: 1. Metastatic prostate cancer (HCC) - ICD9: 185, ICD10: C61 (primary diagnosis) The patient was diagnosed with early-stage high-grade prostate cancer in June 2014 (TRUS [id number]/02/2014). He underwent a radical prostatectomy on 11/05/2014. Pathology consistent with stage IIIC (pT2b, N0, M0), Painter 5+4 equal 9. Postop the patient's PSA [...] suppressed at <12. Bone scan obtained at [facility] 11/05/2021 revealed multiple bone metastases. 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 Stable on current medications. Continue [...] and Dr. Esqueda follow up. Lynne Rajan APRN.CNP Hematology/Oncology [facility]/ [facility] [phone] CC: Dr. Anthony Scruggs documented in this encounterMercy Health Kings [facility]04-18-[facility]24 History of Present illness Narrative* Christo Howard APRN.CNP - 11/02/2023 9:28 AM EDT PATIENT NAME: Pablo Felix DATE: 11/02/2023 PRIMARY CARE PHYSICIAN: Dr. Jamar Fall OTHER PHYSICIANS: Dr. Anthony Scruggs, Dr. Khan, [facility] Cardiology Portions of this encounter [...] mg 24 hr tablet Take by mouth. Dvqjdjhegblzj-Wljtblva-Msjgcz (MULTIVITAMIN 50 PLUS) tab Take 1 tablet [...] Radical retropubic prostatectomy and bilateral pelvic lymphadenectomy ([facility]) Poorly differentiated prostatic adenocarcinoma of left [...] 10/29/2023 0.16 RADIOLOGY/OTHER STUDIES: 11/05/2021 CT chest/abdomen/pelvis ([facility]) Several sclerotic lesions consistent with metastatic disease. No evidence of visceral organ involvement or lymphadenopathy. 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 01/22/2018 Nuclear bone scan ([facility]) New focal increased activity left frontal bone, left T8 vertebral body. 01/22/2018 MRI pelvis ([facility]) 4.5 cm area of T2 signal in the prostate bed. 07/24/2014 CT abdomen/pelvis [place] Diffuse prostatic enlargement with indentation of the bladder base. Incidental 2.5 x 1 cm exophytic hypodense lesion adjacent to the pancreatic body. ASSESSMENT/PLAN: 1. Metastatic prostate cancer (HCC) - ICD9: 185, ICD10: C61 (primary diagnosis) The patient was diagnosed with early-stage high-grade prostate cancer in June 2014 (TRUS pvxeup1707/02/2014). He underwent a radical prostatectomy on 11/05/2014. [...] suppressed at <12. Bone scan obtained at [facility] 11/05/2021 revealed multiple bone metastases. 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 Stable on current medications. Continue [...] which included preparing to see the patient, vxog-hz-anwu patient care, completing clinical documentation, obtaining and/or reviewing separately obtained history, performing a medically appropriate examination, counseling and educating the pat ient/family/caregiver, ordering medications, tests, or procedures, independently interpreting results (not separately reported), and communicating results to the patient/family/caregiver. documented in this encounterMercy Health Kings Mills Hospital04-05-2024 Hospital Discharge instructions Patient Education 10/20/2023 [...] greater thelikelihood that the cancer will spread. Painter 6 or lower: This indicates that the cancer cells look similar to normal prostate cells (well differentiated). Painter 7: This indicates that the cancer cells look somewhat similar to normal prostate cells (moderately differentiated). Painter 8, 9, or 10: This indicates that [...] stress of having cancer. General instructions Take nota-xos-pnnexmu and prescription medicines only as told by your health care provider. If you have to go to the hospital, notify your cancer specialist (oncologist). Keep all follow-up visits. This is important. Where to find more information [employer]: www.cancer.org [place] Society of Clinical Oncology: www.cancer.net National Cancer Hunker: www.cancer.gov Contact a health care provider if: [...] provider. Document Revised: 09/29/2021 Document Reviewed: 09/29/2021 [employer] Patient Education 2022 [employer]. Follow Up Care 04/17/2023 09:25:02 With:KAEL JAMES, Anthony Lee, URL Address: [address] [place], [place] [id number]- When: Unknown [facility] 02-12-2024 History of Present illness Narrative* Long Boo, ROCHELLE-SALES AND SERVICE ENGINEER - 08/28/2023 11:25 AM EST Images from [...] limited to risks of scarring, darker or hardscape foreman pigmentary changes, recurrence, incomplete removal and infection. [...] biopsy results, 6 months documented in this encounterMissouri Baptist Medical [id number] Evaluation note* Encounter Date Diagnosis Assessment Notes [...] use, the patient reduces the risk for OR, CVA, HTN, cardiac dysrhythmias and sudden cardiac [...] retention cyst and frontal sinus mass benign [facility] Other 01-19-2024 Evaluation note* Encounter Date Diagnosis Assessment Notes Treatment Notes Treatment Clinical Notes Jul, Pancreatic mass (ICD-10 - K86.89) MRCP: 4cm mass - 2022 - previously completed E[facility] bx at [facility] - stable in size from 2021 [facility] Other 12-07-2023 [facility] Cardiology Clinic Note Chief Complaint: Patient here [...] should problems arise Bridger Mulligan MD, MPH, [facility], [facility], [facility] Interventional Cardiology Pager Email: [email or web address] Evaluation note* Encounter Date Diagnosis Assessment [...] ENT since scheduling appt for sinus mass [facility] Other 10-16-2023 Evaluation note* Encounter Date Diagnosis [...] malignant neoplasm of bone (ICD-10 - C79.51) [facility] Other 10-12-2023 History of Present illness Narrative* Christo Howard, ROCHELLE.SALES AND SERVICE ENGINEER - 04/27/2023 10:00 AM EDT PATIENT NAME: Pablo Felix DATE: 04/27/2023 PRIMARY CARE PHYSICIAN: Dr. Jamar Fall OTHER PHYSICIANS: Dr. Anthony Scruggs, Dr. Khan, [facility] Cardiology Portions of this encounter [...] mg 24 hr tablet Take by mouth. Camrxklhsyuyn-Lgaahcqy-Xsigeb (MULTIVITAMIN 50 PLUS) tab Take 1 tablet [...] Radical retropubic prostatectomy and bilateral pelvic lymphadenectomy ([facility]) Poorly differentiated prostatic adenocarcinoma of left [...] 04/24/2023 0.12 RADIOLOGY/OTHER STUDIES: 11/05/2021 CT chest/abdomen/pelvis ([facility]) Several sclerotic lesions consistent with metastatic disease. No evidence of visceral organ involvement or lymphadenopathy. 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 01/22/2018 Nuclear bone scan ([facility]) New focal increased activity left frontal bone, left T8 vertebral body. 01/22/2018 MRI pelvis ([facility]) 4.5 cm area of T2 signal in the prostate bed. 07/24/2014 CT abdomen/pelvis [place] Diffuse prostatic enlargement with indentation of the bladder base. Incidental 2.5 x 1 cm exophytic hypodense lesion adjacent to the pancreatic body. ASSESSMENT/PLAN: 1. Metastatic prostate cancer (HCC) - ICD9: 185, ICD10: C61 (primary diagnosis) The patient was diagnosed with early-stage high-grade prostate cancer in June 2014 (TRUS [id number]/02/2014). He underwent a radical prostatectomy on 11/05/2014. Pathology consistent with stage IIIC (pT2b, N0, M0), Painter 5+4 equal 9. Postop the patient's PSA [...] suppressed at <12. Bone scan obtained at [facility] 11/05/2021 revealed multiple bone metastases. 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 Stable on current medications. Continue [...] which included preparing to see the patient, dciu-du-hqok patient care, completing clinical documentation, obtaining and/or reviewing separately obtained history, performing a medically appropriate examination, counseling and educating the pat ient/family/caregiver, ordering medications, tests, or procedures, independently interpreting results (not separately reported), and communicating results to the patient/family/caregiver. documented in this encounterMercy Health Kings [facility] Hospital10-03-2023 Evaluation note* Encounter Date Diagnosis Assessment Notes Treatment Notes Treatment Clinical Notes Apr, Pancreatic mass (ICD-10 - K86.89) [facility] Other 10-02-2023 Hospital Discharge instructions Patient Education [...] stress of having cancer. General instructions Take jwre-jli-rjoztlr and prescription medicines only as told by your health care provider. If you have to go to the hospital, notify your cancer specialist (oncologist). Keep all follow-up visits. This is important. Where to find more information [employer]: www.cancer.org [place] Society of Clinical Oncology: www.cancer.net National Cancer Hunker: www.cancer.gov Contact a health care provider if: [...] provider. Document Revised: 09/29/2021 Document Reviewed: 09/29/2021 [employer] Patient Education 2022 [employer]. Follow Up Care 10/28/2022 08:37:57 With:KAEL JAMES, Anthony Lee, URL Address: [facility] [address], [place] [address] [phone] When: Unknown Comments:6 mos w/ PSA (and possible Lupron) [facility] 09-27-2023 Evaluation note* Encounter Date Diagnosis Assessment Notes Treatment Notes Treatment Clinical Notes Mar, Pancreatic mass (ICD-10 - K86.89) [facility] Other 09-20-2023 Evaluation note* Encounter Date Diagnosis Assessment Notes Treatment Notes Treatment Clinical Notes Mar, Right upper quadrant abdominal pain (ICD-10 - R10.11) Diet instructions Lab to r/o acute infection, cholecystitis, pancreatitis GBUS vs CT abd based on results BLand, low fat diet Mar, Nausea (ICD-10 - R11.0) [place] , small/frequent feedings. Pepcid, Prilosec, Tums as [...] Microalbumin, Dilated eye exam and Foot exam [facility] Other 08-30-2023 Evaluation note* Encounter Date Diagnosis [...] use, the patient reduces the risk for OR, CVA, HTN, cardiac dysrhythmias and sudden cardiac [...] exercise for 30 minutes, 3-5 times weekly. [facility] Other 07-23-2023 Evaluation note* Encounter Date Diagnosis Assessment Notes Treatment Notes Treatment Clinical Notes Jan, Left bundle-branch block, unspecified (ICD-10 - I44.7) [facility] Other 07-20-2023 History of Present illness Narrative* Marco A Esqueda MD - 02/02/2023 7:38 AM EDT PATIENT NAME: Pablo Felix DATE: 02/02/2023 PRIMARY CARE PHYSICIAN: Dr. Jamar Fall OTHER PHYSICIANS: Dr. Anthony Scruggs, Dr. Khan, [facility] Cardiology Portions of this encounter [...] mg 24 hr tablet Take by mouth. Mwkakjiqznxwy-Kjdljgeu-Bdifmn (MULTIVITAMIN 50 PLUS) tab Take 1 tablet [...] Radical retropubic prostatectomy and bilateral pelvic lymphadenectomy ([facility]) Poorly differentiated prostatic adenocarcinoma of left [...] 10/25/2022 0.13 RADIOLOGY/OTHER STUDIES: 11/05/2021 CT chest/abdomen/pelvis ([facility]) Several sclerotic lesions consistent with metastatic disease. No evidence of visceral organ involvement or lymphadenopathy. 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 01/22/2018 Nuclear bone scan ([facility]) New focal increased activity left frontal bone, left T8 vertebral body. 01/22/2018 MRI pelvis ([facility]) 4.5 cm area of T2 signal in the prostate bed. 07/24/2014 CT abdomen/pelvis [place] Diffuse prostatic enlargement with indentation of the bladder base. Incidental 2.5 x 1 cm exophytic hypodense lesion adjacent to the pancreatic body. ASSESSMENT/PLAN: 1. Metastatic prostate cancer (HCC) - ICD9: 185, ICD10: C61 (primary diagnosis) The patient was diagnosed with early-stage high-grade prostate cancer in June 2014 (TRUS wcaltz4307/02/2014). He underwent a radical prostatectomy on 11/05/2014. Pathology consistent with stage IIIC (pT2b, N0, M0), Painter 5+4 equal 9. Postop the patient's PSA [...] suppressed at <12. Bone scan obtained at [facility] 11/05/2021 revealed multiple bone metastases. 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 Stable on current medications. Continue [...] CC: Dr. Anthony Scruggs documented in this encounterMercy Health Kings Mills Hospital04-27-2023 History of Present illness Narrative* Christo Howard APRN.SALES AND SERVICE ENGINEER - 11/10/2022 10:00 AM EDT PATIENT NAME: Pablo Felix DATE: 11/10/2022 PRIMARY CARE PHYSICIAN: Dr. Jamar Fall OTHER PHYSICIANS: Dr. Anthony Scruggs, Dr. Khan, [facility] Cardiology Portions of this encounter [...] mg 24 hr tablet Take by mouth. Acszwlvsqoiud-Selrbdrp-Gksvzo (MULTIVITAMIN 50 PLUS) tab Take 1 tablet [...] Radical retropubic prostatectomy and bilateral pelvic lymphadenectomy ([facility]) Poorly differentiated prostatic adenocarcinoma of left [...] PSA 0.13 RADIOLOGY/OTHER STUDIES: 11/05/2021 CT chest/abdomen/pelvis ([facility]) Several sclerotic lesions consistent with metastatic disease. No evidence of visceral organ involvement or lymphadenopathy. 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 01/22/2018 Nuclear bone scan ([facility]) New focal increased activity left frontal bone, left T8 vertebral body. 01/22/2018 MRI pelvis ([facility]) 4.5 cm area of T2 signal in the prostate bed. 07/24/2014 CT abdomen/pelvis [place] Diffuse prostatic enlargement with indentation of the bladder base. Incidental 2.5 x 1 cm exophytic hypodense lesion adjacent to the pancreatic body. ASSESSMENT/PLAN: 1. Metastatic prostate cancer (HCC) - ICD9: 185, ICD10: C61 (primary diagnosis) The patient was diagnosed with early-stage high-grade prostate cancer in June 2014 (TRUS [id number]/02/2014). He underwent a radical prostatectomy on 11/05/2014. Pathology consistent with stage IIIC (pT2b, N0, M0), Painter 5+4 equal 9. Postop the patient's PSA [...] suppressed at <12. Bone scan obtained at [facility] 11/05/2021 revealed multiple bone metastases. 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 Stable on current medications. Continue [...] with repeat CT scan. Christo Howard APRN.SALES AND SERVICE ENGINEER CC: Dr. Anthony Scruggs I spent a total of 30 minutes on the date of the service which included preparing to see the patient, ofjw-ke-jpug patient care, completing clinical documentation, obtaining and/or reviewing separately obtained history, performing a medically appropriate examination, counseling and educating the pat ient/family/caregiver, ordering medications, tests, or procedures, independently interpreting results (not separately reported), and communicating results to the patient/family/caregiver. documented in this encounterMercy Health Kings Mills Hospital03-03-2023 Evaluation note* Encounter Date Diagnosis Assessment [...] injection w/ Kenalog, may increase BS slightly [facility] Other 02-24-2023 Evaluation note* Encounter Date Diagnosis [...] use, the patient reduces the risk for OR, CVA, HTN, cardiac dysrhythmias and sudden cardiac [...] Lupron along w/ additional oral chemotherapy from [facility]. Also receiving Boniva Aug, Other Personalized [...] reviewed and amended by provider signed below. [facility] Other 01-26-2023 History of Present illness Narrative* Marco A Esqueda MD - 08/11/2022 7:42 AM EST PATIENT NAME: Pablo Felix DATE: 08/11/2022 PRIMARY CARE PHYSICIAN: Dr. Jamar Fall OTHER PHYSICIANS: Dr. Anthony Scruggs, Dr. Khan, [facility] Cardiology Portions of this encounter [...] mg 24 hr tablet Take by mouth. Arexnbnkzwbjc-Bdlxtxye-Eetira (MULTIVITAMIN 50 PLUS) tab Take 1 tablet [...] Radical retropubic prostatectomy and bilateral pelvic lymphadenectomy ([facility]) Poorly differentiated prostatic adenocarcinoma of left [...] 08/11/2022 PSA RADIOLOGY/OTHER STUDIES: 11/05/2021 CT chest/abdomen/pelvis ([facility]) Several sclerotic lesions consistent with metastatic disease. No evidence of visceral organ involvement or lymphadenopathy. 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 01/22/2018 Nuclear bone scan ([facility]) New focal increased activity left frontal bone, left T8 vertebral body. 01/22/2018 MRI pelvis ([facility]) 4.5 cm area of T2 signal in the prostate bed. 07/24/2014 CT abdomen/pelvis [place] Diffuse prostatic enlargement with indentation of the bladder base. Incidental 2.5 x 1 cm exophytic hypodense lesion adjacent to the pancreatic body. ASSESSMENT/PLAN: 1. Metastatic prostate cancer (HCC) - ICD9: 185, ICD10: C61 (primary diagnosis) The patient was diagnosed with early-stage high-grade prostate cancer in June 2014 (TRUS pvcruq7007/02/2014). He underwent a radical prostatectomy on 11/05/2014. Pathology consistent with stage IIIC (pT2b, N0, M0), Painter 5+4 equal 9. Postop the patient's PSA [...] suppressed at <12. Bone scan obtained at [facility] 11/05/2021 revealed multiple bone metastases. CT scans showed no evidence of visceral organ involvement or suspicious lymphadenopathy. On 11/10/2021 the patient started Xtandi 160 mg daily. Lupron every 6 months continued (per Dr. cSruggs) - next due October 2022. Antiresorptive therapy [...] 414.01, ICD10: I25.10 Status post CABG 08/17/2014 ([facility]). Stable on current medications. Continue [...] CC: Dr. Anthony Scruggs documented in this encounterMercy Health Kings Mills Hospital01-05-2023 NotePROCEDURE: XR SHOULDER LT 2V or [...] Electronically authenticated by: CYNTHIA TORRES Date: 2022-07-21 15:46[facility]01[facility] Evaluation note* Encounter Date Diagnosis Assessment Notes Treatment Notes Treatment Clinical Notes Jul, Cervical spondylosis with radiculopathy (ICD-10 - M47.22) ROM exercises, heat/ice and Tylenol 1000mg tid. Initiated Tramadol w/ caution, no driving, may cause sedation. Jul, Acute pain of left shoulder (ICD-10 - M25.512) ROM exercises, Tylenol and Tramadol as needed. Jul, Annual physical exam (ICD-10 - Z00.00) [facility] Other 10-28-2022 Hospital Discharge instructions Patient Education [...] who: Are older than age 65. Are -South African. Are obese. Have a family history of [...] cells. Follow these instructions at home: Take umuw-rqp-edlxhum and prescription medicines only as told by [...] 07/03/2006 Document Revised: 06/15/2018 Document Reviewed: 03/13/2017 [employer] Patient Education [employer]. Follow Up Care 11/08/2021 14:14:20 With:KAEL JAMES, Anthony Lee, URL Address: [address] [place] [address]- When: Unknown [facility] 10-27-2022 Nurse Note* Sheela Toney - 05/12/2022 10:43 AM EDT AUA=2 documented in this encounterMercy Health Kings Mills Hospital10-27-2022 History of Present illness Narrative* Zach Khan MD - 05/12/2022 10:41 AM EDT Radiation Oncology - Follow Up Note PATIENT NAME: Pablo Felix PATIENT DIAGNOSIS: Prostate adenocarcinoma, initial clinical stage II, initial PSA 1.07, biopsy Lucrecia score 9(4,5), s/p prostatectomy for 11/05/14 pathologic stage IIIC [id number], Lucrecia 9 (5, 4) now with rising [...] Each once daily. To test blood sugar Tikkkwwtyywgf-Gpvryqtb-Onmpho (MULTIVITAMIN 50 PLUS) tab Take 1 tablet [...] s/p prostatectomy for 11/05/14 pathologic stage IIIC [id number], Painter 9 (5, 4) withrising PSA, subsequently status [...] Khan MD cc: Jamar Fall MD ([facility]) Portions of the above note extracted and edited from previous visit as well as active information included in the EMR. documented in this encounterMercy Health Kings Mills Hospital10-17-2022 Miscellaneous Notes* Telephone Encounter - Sheela Toney - 05/02/2022 10:48 AM EDT Patient coming in on 05/12/22 for follow up with labs. Please add lab orders. Thanks, Sheela Toney MA documented in this encounterMercy Health Kings Mills Hospital08-04-2022 History of Present illness Narrative* Marco A Esqueda MD - 02/17/2022 7:51 AM EDT PATIENT NAME: Pablo Felix DATE: 02/17/2022 PRIMARY CARE PHYSICIAN: Jamar Fall, OTHER PHYSICIANS: Dr. Anthony Scruggs, Dr. Khan, [facility] Cardiology Portions of this encounter [...] Each once daily. To test blood sugar Lvhjnuhbqwydk-Vaarcnpb-Inyaem (MULTIVITAMIN 50 PLUS) tab Take 1 tablet [...] Radical retropubic prostatectomy and bilateral pelvic lymphadenectomy ([facility]) Poorly differentiated prostatic adenocarcinoma of left [...] PSA 0.14 RADIOLOGY/OTHER STUDIES: 11/05/2021 CT chest/abdomen/pelvis ([facility]) Several sclerotic lesions consistent with metastatic disease. No evidence of visceral organ involvement or lymphadenopathy. 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 01/22/2018 Nuclear bone scan ([facility]) New focal increased activity left frontal bone, left T8 vertebral body. 01/22/2018 MRI pelvis ([facility]) 4.5 cm area of T2 signal in the prostate bed. 07/24/2014 CT abdomen/pelvis [place] Diffuse prostatic enlargement with indentation of the bladder base. Incidental 2.5 x 1 cm exophytic hypodense lesion adjacent to the pancreatic body. ASSESSMENT/PLAN: 1. Metastatic prostate cancer (HCC) - ICD9: 185, ICD10: C61 (primary diagnosis) The patient was diagnosed with early-stage high-grade prostate cancer in June 2014 (TRUS ocejxg0007/02/2014). He underwent a radical prostatectomy on 11/05/2014. [...] at <12. Staging scans were obtained at [facility] on 11/05/2021. Bone scan revealed multiple [...] 414.01, ICD10: I25.10 Status post CABG 08/17/2014 ([facility]). Stable on current medications. Continue [...] CC: Dr. Anthony Scruggs documented in this encounterMercy Health Kings Mills Hospital05-23-2022 Miscellaneous Notes* Telephone Encounter - Clementine [...] that he has the phone number to [facility] pharmacy. No additional questionsnoted. Clementine Aguilar RN documented in this encounterMercy Health Kings Mills Hospital04-28-2022 History of Present illness Narrative* Marco A Esqueda MD - 11/11/2021 7:42 AM EDT PATIENT NAME: Pablo Felix DATE: 11/11/2021 PRIMARY CARE PHYSICIAN: Jamar Fall DO OTHER PHYSICIANS: Dr. Anthony Scruggs, Dr. Khan, [facility] Cardiology Portions of this encounter note have been copied from my note from 10/28/2021 and has been updated where appropriate, and reflect my current medical decision making from today. CC: This is a 76 year old male with recently diagnosed metastatic prostate cancer, seen for scheduled follow-up. INTERIM HISTORY: Since the patient's initial visit here he underwent staging scans at [facility] on 11/05/2021. Bone scan revealed multiple [...] Each once daily. To test blood sugar Fxqnqnophlpza-Ksknwhbf-Mmtgqq (MULTIVITAMIN 50 PLUS) tab Take 1 tablet [...] Radical retropubic prostatectomy and bilateral pelvic lymphadenectomy ([facility]) Poorly differentiated prostatic adenocarcinoma of left [...] PSA 2.64 RADIOLOGY/OTHER STUDIES: 11/05/2021 CT chest/abdomen/pelvis ([facility]) Several sclerotic lesions consistent with metastatic disease. No evidence of visceral organ involvement or lymphadenopathy. 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 01/22/2018 Nuclear bone scan ([facility]) New focal increased activity left frontal bone, left T8 vertebral body. 01/22/2018 MRI pelvis ([facility]) 4.5 cm area of T2 signal in the prostate bed. 07/24/2014 CT abdomen/pelvis [place] Diffuse prostatic enlargement with indentation of the bladder base. Incidental 2.5 x 1 cm exophytic hypodense lesion adjacent to the pancreatic body. ASSESSMENT/PLAN: 1. Metastatic prostate cancer (HCC) - ICD9: 185, ICD10: C61 (primary diagnosis) The patient was diagnosed with early-stage high-grade prostate cancer in June 2014 (TRUS [id number]/02/2014). He underwent a radical prostatectomy on 11/05/2014. [...] at <12. Staging scans were obtained at [facility] on 11/05/2021. Bone scan revealed multiple [...] 414.01, ICD10: I25.10 Status post CABG 08/17/2014 ([facility]). Stable on current medications. Continue [...] CC: Dr. Anthony Scruggs documented in this encounterMer[facility]04-27-2022 Miscellaneous Notes* Telephone Encounter - Clementine Aguilar RN - 11/10/2021 3:03 PM EDT Pt reports his Enzalutamide was delivered. Will start this evening. Clementine Aguilar RN documented in this encounterMercy [facility]04-26-2022 Miscellaneous Notes* Telephone Encounter - Clementine Aguilar RN - 11/09/2021 2:31 PM EDT Per pt, his Enzalutamide is scheduled to arrive tomorrow morning. Patient started/will start taking Enzalutamide on 11/10/21. Clementine Aguilar RN documented in this encounterMercy Health Kings [facility] Hospital04-25-2022 Hospital Discharge instructions Patient Education 11/08/2021 [...] who: Are older than age 65. Are -South African. Are obese. Have a family history of [...] cells. Follow these instructions at home: Take jbou-hlu-iocazfi and prescription medicines only as told by [...] 07/03/2006 Document Revised: 06/15/2018 Document Reviewed: 03/13/2017 [employer] Patient Education 2020 [employer]. Follow Up Care 08/23/2021 13:26:07 With:KAEL JAMES, Anthony Lee, URL Address: [facility] [address], [place] [address]- [phone] When:05/10/2022 [facility] [place] 04-21-2022 Miscellaneous Notes* Telephone Encounter - Clementine Aguilar RN - 11/04/2021 2:53 PM EDT Pt would like to get the 4th Covid vaccine when it's due. Dr Esqueda notified and gives the ok to proceed when due. Pt notified and verbalizes understanding. Clementine Aguilar RN documented in this encounterMercy Health [facility]04-21-2022 History of Present illness Narrative* Clementine [...] Information handout: Enzalutamide, [facility]ty [facility]: Yes [...] RN * Aida Luo, [facility] - 11/04/2021 2:49 PM EDT Images from the original note were not included. [facility] Department of Pharmacy Oncology Pharmacy Medication [...] Each once daily. To test blood sugar Vhjokutjbdcdz-Ovvlahxo-Vjdvec (MULTIVITAMIN 50 PLUS) tab Take 1 tablet [...] of chemotherapy NA - Followed up with [facility] for delivery of Free Xtandi Readiness [...] patient Rubin Luo RPh documented in this encounterMercy Health [facility] Hospital04-21-2022 Miscellaneous Notes* Telephone Encounter - Aida Luo RPh - 11/04/2021 10:54 AM EDT Confirmed with [employer] approval date 11/01/21 and that the specialty pharmacy, [facility], will reach out to Mr Felix 3-5 business days from approval date. If he does not hear from them by 11/10/21 we should call [facility] @ option 2. I informed Mr Felix of this, he has an appt 11/12/21 and said if he has not heard from them by then he will get their phone number from us. Rubin Luo RPh documented in this encounterMercy Health Kings Mills Hospital04-19-2022 Miscellaneous Notes* Telephone Encounter - Jennifer Amaro - 11/02/2021 12:23 PM EDT Called pt, scheduled for education (11/04) @ 900am. * Telephone Encounter - Clementine Aguilar RN - 11/02/2021 11:57 AM EDT Clerical: Please schedule pt for education. Thank you! Clementine Aguilar RN * Telephone Encounter - Aida Luo [facility] - 11/02/2021 11:41 AM EDT Approved for free Xtandi until 07/16/22. Spoke to patient and let him know to be expecting this call. [facility] will call patient to set up delivery for all fills. I do not see where he has had chemo education yet. Alba does he need to be set up with you? Thanks Rubin Luo [facility] * Telephone Encounter - Andreina Castillo [facility] - 11/01/2021 10:55 AM EDT Patient called today. We completed a conference call with [facility] - they were ableto obtain consent and start his benefits investigations and we should hear back by later today or tomorrow. * Telephone Encounter - Aida Luo [facility] - 10/29/2021 3:38 PM EDT Permission granted by [employer] to pursue free drug on line application. Application submitted and email sent to Mr Felix to complete his portion. The [employer] are out of town for the weekend, but when he returns Monday night he will complete authorization. Rubin Luo RP * Telephone Encounter - Brina Wang [facility] - 10/28/2021 4:13 PM EDT No available funding at this time. We will proceed free drug application through [employer] Pharmacy to reach out to patient 10/29/2021 to notify. Brina Wang RPh * Telephone Encounter - Brina Wang RPh - 10/28/2021 3:08 PM EDT Ambulatory Pharmacy Prior Authorization Note Provider Intervention Required?: No- Pharmacy completed on your behalf. Drug: Xtandi Cover My Meds Carter: [id number] Determination: Approved Prior Authorization/Case #: [id number] Prior Authorization Expiration: 10/28/2022 Time to PA Submission in CMM: 15 min Time to PA Determination in CMM: Same day Additional Information: [employer]-Pay $3,111.12 For questions relating to this submission, please contact [facility] at [phone] documented in this encounterMercy Health [facility]04-19-2022 Miscellaneous Notes* Telephone Encounter - Zohra Avila PA-C - 11/02/2021 12:00 PM EDT CBC and CMP orders placed Zohra Avila PA-C * Telephone Encounter - Katie Rosen MA - 11/02/2021 11:57 AM EDT Patient has an appt on 11/11/21. Would you like labs, if so place orders. Katie Rosen MA documented in this encounterMercy Health [facility] Hospital04-18-2022 Miscellaneous Notes* Telephone Encounter - Clementine [...] assistance program. RADHA Betancourt documented in this encounterMercy Health Kings [facility] Hospital04-14-2022 Miscellaneous Notes* Telephone Encounter - Clementine [...] back. Clementine Aguilar RN documented in this encounterMercy Health Kings [facility] Hospital04-14-2022 Miscellaneous Notes* Telephone Encounter - Clementine Aguilar RN - 10/28/2021 1:12 PM EDT This encounter was opened in error. @[email or web address]@ documented in this encounterMercy Health Kings Mills Hospital04-11-2022 Miscellaneous Notes* Telephone Encounter - Christo Howard APRN.CNP - 10/25/2021 4:05 PM EDT Hold off for now. Christo Howard APRN.CNP * Telephone Encounter - Katie Rosen MA - 10/25/2021 11:01 AM EDT If patient needs labs, please sign/place orders for 10/28/21. Thanks. Katie Rosen MA documented in this encounterMercy Health [facility] Hospital01-01-2015 Evaluation note* Diagnosis Onset Date Resolution Status ASHD (arteriosclerotic heart disease) acute Cervical spondylosis acute Essential hypertension acute Hypercholesterolemia acute Malignant neoplasm of prostate July 17, 2014 acute Nonrheumatic aortic valve stenosis acute GRADY (obstructive sleep apnea) acute Type 2 diabetes mellitus with hyperglycemia acute [facility] Work Phone: Evaluation + Plan note Future Appointments Appointment Date:05/13/2022 08:45:00 AM Scheduled Provider:Anthony SCRUGGS MD Location:[facility] Appointment Type:URO Office Visit Diagnostic Tests Pending * PSA Total 11/08/21 Future Scheduled Tests Laboratory* Basic Metabolic Panel 09/20/21 [facility] evaluation + Plan note Future Appointments Appointment Date:10/28/2022 08:00:00 AM Scheduled Provider:Anthony SCRUGGS MD Location:[facility] Appointment Type:URO Office Visit Diagnostic Tests Pending * PSA Total 09/14/22 Future Scheduled Tests Laboratory* Basic Metabolic Panel 09/20/21 [facility] evaluation + Plan note Future Appointments Appointment Date:10/20/2023 08:45:00 AM Scheduled Provider:Anthony SCRUGGS MD Location:[facility] Appointment Type:URO Office Visit Diagnostic Tests Pending * PSA Total 04/17/23 [facility] evaluation + Plan note Future Appointments Appointment Date:04/19/2024 08:00:00 AM Scheduled Provider:Anthony SCRUGGS MD Location:[facility] Appointment Type:URO Office Visit Diagnostic Tests Pending * PSA Total 02/15/24 [facility] evaluation + Plan note Future Appointments Appointment Date:10/07/2024 09:15:00 AM Scheduled Provider:Anthony SCRUGGS MD Location:[facility] Appointment Type:URO Office Visit Diagnostic Tests Pending * PSA Total 08/17/24 [facility] evaluation note* Diagnosis OPENED IN [...] prostate [facility]* Diagnosis Malignant neoplasm of prostate (HCC)- Primary Malignant neoplasm of prostate [facility]* Diagnosis Malignant neoplasm of prostate (HCC)- Primary Malignant neoplasm of prostate [facility]* Diagnosis Malignant neoplasm of [...] (HCC) documented in this encounter [facility] noteNo LocalityBro[facility] Other Evaluation note* Diagnosis Malignant neoplasm of prostate (HCC)- Primary Malignant neoplasm of prostate 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, unspecified vessel or lesion type Essential hypertension Unspecified essential hypertension Type 2 diabetes mellitus without complication, without long-term current use of insulin (HCC) documented [facility] encounter [facility]* Diagnosis Malignant neoplasm of prostate (HCC)- Primary Malignant neoplasm of prostate [facility]* Diagnosis Malignant neoplasm of prostate (HCC)- Primary Malignant neoplasm of prostate [facility]* Diagnosis Malignant neoplasm of prostate (HCC)- Primary Malignant neoplasm of prostate 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, unspecified vessel or lesion type Essential hypertension Unspecified essential hypertension Type 2 diabetes mellitus without complication, without long-term current use of insulin (HCC) documented [facility] encounter [facility]* Diagnosis Neoplasm of unspecified behavior of bone, soft tissue, and skin Actinic keratosis [facility]* Diagnosis Malignant neoplasm of prostate (HCC)- Primary Malignant neoplasm of prostate documented [facility] encounter [facility]* Diagnosis Malignant neoplasm of prostate (HCC)- Primary Malignant neoplasm of prostate Essential hypertension Unspecified essential hypertension 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, unspecified vessel or lesion type Type 2 diabetes mellitus without complication, without long-term current use of insulin (HCC) Lesion of skin of right ear Abdominal discomfort Abdominal pain, unspecified site [facility] Diagnosis Onset Date Resolution Status Cervical spondylosis acute Mass of skin of left shoulder acute Primary osteoarthritis, right shoulder acute Shoulder pain, right acute Neck pain noneactive ASHD (arteriosclerotic heart disease) acute Essential hypertension acute Hypercholesterolemia acute Malignant neoplasm of prostate July 17, 2014 acute Nonrheumatic aortic valve stenosis acute GRADY (obstructive sleep apnea) acute Type 2 diabetes mellitus with hyperglycemia acute [facility] Work Phone: Evaluation note* Diagnosis Malignant neoplasm of prostate (HCC)- Primary Malignant neoplasm of prostate [facility]* Diagnosis Malignant neoplasm of prostate (HCC)- Primary Malignant neoplasm of prostate documented in this encounter [facility] note* Diagnosis Malignant neoplasm of prostate (HCC)- Primary Malignant neoplasm of prostate documented in this encounter [facility] note* Diagnosis Malignant neoplasm of prostate (HCC)- Primary Malignant neoplasm of prostate [facility]* Diagnosis Malignant neoplasm of prostate (HCC)- Primary Malignant neoplasm of prostate Essential hypertension Unspecified essential hypertension 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, unspecified vessel or lesion type Type 2 diabetes mellitus without complication, without long-term current use of insulin (HCC) documented in this encounter [facility] note* Diagnosis Malignant neoplasm of prostate (HCC)- Primary Malignant neoplasm of prostate documented in this encounter [facility] note* Diagnosis Seborrheic keratosis- Primary Melanocytic nevus of trunk Benign neoplasm of skin of trunk, except scrotum Actinic keratosis Lentigines Psoriasis vulgaris Other psoriasis History of SCC (squamous cell carcinoma) of skin Personal history of other malignant neoplasm of skin documented in this encounter [facility] HealthcareHistory general Narrative - Reported* Type Description [...] [place] 08/2015 Hospitalization History see surgical hx [employer] Other History general Narrative - Reported* Type [...] [place] 08/2015 Hospitalization History see surgical hx [employer] Other Hospital course Narrative No data available for this section [facility] [place] progress note No data available for this section [facility] Medications Administered Section Inactive Administered [...] To Contact Diagnoses Actinic keratosis 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, 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 [address] [place] [address] Referral ID Status Reason Start Date Expiration Date V isits Requested Visits Authorized [id number] Pending Review 1 1 Reason *FU 06/06 Right fr ontal sinus mass and cerumen impaction Diagnosis 1 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) Diagnosis 2 Impacted cerumen of right ear (H61.21) Referral Organization [facility] Thony lizama Referring Provider First Name Jamar Referring Provider Last Name Juan David Referring Provider Specialty Internal Me dicine Referred Organization [facility] Referred Provider Emelina Villagomez Referred Address ,[place], [place],[address] Referred Provider Specialty Ear, Nose an d [...] or drug abuse patient.[facility] HospitalIn the event this information is protected by the Federal Confidentiality of Alcohol and Drug Abuse Patient Records regulations: The Federal rules restrict any use of the information to criminally investigate or prosecute any alcohol or drug abuse patient.[facility] HospitalIn the event this information is protected by the Federal Confidentiality of Alcohol and Drug Abuse Patient Records regulations: The Federal rules restrict any use of the information to criminally investigate or prosecute any alcohol or drug abuse patient.[facility] HospitalIn the event this information is protected by the Federal Confidentiality of Alcohol and Drug Abuse Patient Records regulations: The Federal rules restrict any use of the information to criminally investigate or prosecute any alcohol or drug abuse patient.[facility] HospitalIn the event this information is protected by the Federal Confidentiality of Alcohol and Drug Abuse Patient Records regulations: The Federal rules restrict any use of the information to criminally investigate or prosecute any alcohol or drug abuse patient.[facility] HospitalIn the event this information is protected by the Federal Confidentiality of Alcohol and Drug Abuse Patient Records regulations: The Federal rules restrict any use of the information to criminally investigate or prosecute any alcohol or drug abuse patient.[facility] HospitalIn the event this information is protected by the Federal Confidentiality of Alcohol and Drug Abuse Patient Records regulations: The Federal rules restrict any use of the information to criminally investigate or prosecute any alcohol or drug abuse patient.[facility] HospitalIn the event this information is protected by the Federal Confidentiality of Alcohol and Drug Abuse Patient Records regulations: The Federal rules restrict any use of the information to criminally investigate or prosecute any alcohol or drug abuse patient.[facility] HospitalIn the event this information is protected by the Federal Confidentiality of Alcohol and Drug Abuse Patient Records regulations: The Federal rules restrict any use of the information to criminally investigate or prosecute any alcohol or drug abuse patient.[facility] HospitalIn the event this information is protected by the Federal Confidentiality of Alcohol and Drug Abuse Patient Records regulations: The Federal rules restrict any use of the information to criminally investigate or prosecute any alcohol or drug abuse patient.[facility] HospitalIn the event this information is protected by the Federal Confidentiality of Alcohol and Drug Abuse Patient Records regulations: The Federal rules restrict any use of the information to criminally investigate or prosecute any alcohol or drug abuse patient.[facility] HospitalIn the event this information is protected by the Federal Confidentiality of Alcohol and Drug Abuse Patient Records regulations: The Federal rules restrict any use of the information to criminally investigate or prosecute any alcohol or drug abuse patient.[facility] HospitalIn the event this information is protected by the Federal Confidentiality of Alcohol and Drug Abuse Patient Records regulations: The Federal rules restrict any use of the information to criminally investigate or prosecute any alcohol or drug abuse patient.[facility] HospitalIn the event this information is protected by the Federal Confidentiality of Alcohol and Drug Abuse Patient Records regulations: The Federal rules restrict any use of the information to criminally investigate or prosecute any alcohol or drug abuse patient.[facility] HospitalIn the event this information is protected by the Federal Confidentiality of Alcohol and Drug Abuse Patient Records regulations: The Federal rules restrict any use of the information to criminally investigate or prosecute any alcohol or drug abuse patient.[facility] HospitalIn the event this information is protected by the Federal Confidentiality of Alcohol and Drug Abuse Patient Records regulations: The Federal rules restrict any use of the information to criminally investigate or prosecute any alcohol or drug abuse patient.[facility] HospitalIn the event this information is protected by the Federal Confidentiality of Alcohol and Drug Abuse Patient Records regulations: The Federal rules restrict any use of the information to criminally investigate or prosecute any alcohol or drug abuse patient.[facility] HospitalIn the event this information is protected by the Federal Confidentiality of Alcohol and Drug Abuse Patient Records regulations: The Federal rules restrict any use of the information to criminally investigate or prosecute any alcohol or drug abuse patient.[facility] HospitalIn the event this information is protected by the Federal Confidentiality of Alcohol and Drug Abuse Patient Records regulations: The Federal rules restrict any use of the information to criminally investigate or prosecute any alcohol or drug abuse patient.[facility] HospitalIn the event this information is protected by the Federal Confidentiality of Alcohol and Drug Abuse Patient Records regulations: The Federal rules restrict any use of the information to criminally investigate or prosecute any alcohol or drug abuse patient.[facility] HospitalIn the event this information is protected by the Federal Confidentiality of Alcohol and Drug Abuse Patient Records regulations: The Federal rules restrict any use of the information to criminally investigate or prosecute any alcohol or drug abuse patient.[facility] HospitalIn the event this information is protected by the Federal Confidentiality of Alcohol and Drug Abuse Patient Records regulations: The Federal rules restrict any use of the information to criminally investigate or prosecute any alcohol or drug abuse patient.[facility] HospitalIn the event this information is protected by the Federal Confidentiality of Alcohol and Drug Abuse Patient Records regulations: The Federal rules restrict any use of the information to criminally investigate or prosecute any alcohol or drug abuse patient.[facility] HospitalIn the event this information is protected by the Federal Confidentiality of Alcohol and Drug Abuse Patient Records regulations: The Federal rules restrict any use of the information to criminally investigate or prosecute any alcohol or drug abuse patient.[facility] HospitalIn the event this information is protected by the Federal Confidentiality of Alcohol and Drug Abuse Patient Records regulations: The Federal rules restrict any use of the information to criminally investigate or prosecute any alcohol or drug abuse patient.[facility] HospitalIn the event this information is protected by the Federal Confidentiality of Alcohol and Drug Abuse Patient Records regulations: The Federal rules restrict any use of the information to criminally investigate or prosecute any alcohol or drug abuse patient.[facility] HospitalIn the event this information is protected by the Federal Confidentiality of Alcohol and Drug Abuse Patient Records regulations: The Federal rules restrict any use of the information to criminally investigate or prosecute any alcohol or drug abuse patient.[facility] HospitalIn the event this information is protected by the Federal Confidentiality of Alcohol and Drug Abuse Patient Records regulations: The Federal rules restrict any use of the information to criminally investigate or prosecute any alcohol or drug abuse patient.[facility] HospitalIn the event this information is protected by the Federal Confidentiality of Alcohol and Drug Abuse Patient Records regulations: The Federal rules restrict any use of the information to criminally investigate or prosecute any alcohol or drug abuse patient.[facility] HospitalIn the event this information is protected by the Federal Confidentiality of Alcohol and Drug Abuse Patient Records regulations: The Federal rules restrict any use of the information to criminally investigate or prosecute any alcohol or drug abuse patient.[facility] HospitalIn the event this information is protected by the Federal Confidentiality of Alcohol and Drug Abuse Patient Records regulations: The Federal rules restrict any use of the information to criminally investigate or prosecute any alcohol or drug abuse patient.[facility] HospitalIn the event this information is protected by the Federal Confidentiality of Alcohol and Drug Abuse Patient Records regulations: The Federal rules restrict any use of the information to criminally investigate or prosecute any alcohol or drug abuse patient.[facility] HospitalIn the event this information is protected by the Federal Confidentiality of Alcohol and Drug Abuse Patient Records regulations: The Federal rules restrict any use of the information to criminally investigate or prosecute any alcohol or drug abuse patient.[facility] HospitalIn the event this information is protected by the Federal Confidentiality of Alcohol and Drug Abuse Patient Records regulations: The Federal rules restrict any use of the information to criminally investigate or prosecute any alcohol or drug abuse patient.[facility] HospitalIn the event this information is protected by the Federal Confidentiality of Alcohol and Drug Abuse Patient Records regulations: The Federal rules restrict any use of the information to criminally investigate or prosecute any alcohol or drug abuse patient.[facility] HospitalIn the event this information is protected by the Federal Confidentiality of Alcohol and Drug Abuse Patient Records regulations: The Federal rules restrict any use of the information to criminally investigate or prosecute any alcohol or drug abuse patient.[facility] HospitalIn the event this information is protected by the Federal Confidentiality of Alcohol and Drug Abuse Patient Records regulations: The Federal rules restrict any use of the information to criminally investigate or prosecute any alcohol or drug abuse patient.[facility] HospitalIn the event this information is protected by the Federal Confidentiality of Alcohol and Drug Abuse Patient Records regulations: The Federal rules restrict any use of the information to criminally investigate or prosecute any alcohol or drug abuse patient.[facility] HospitalIn the event this information is protected by the Federal Confidentiality of Alcohol and Drug Abuse Patient Records regulations: The Federal rules restrict any use of the information to criminally investigate or prosecute any alcohol or drug abuse patient.[facility] Care Teams (unrecognized sec tion and [...] September 02, 2024 End: September 02, 2024 Distribution Collection Operator Relationship Specialty Start Date End Date Jamar Fall DO PCP - General Internal Medicine 08/04/14 Distribution Collection Operator Relationship Specialty Start Date End Date Jamar Fall DO PCP - General Internal Medicine 08/04/14 Distribution Collection Operator Relationship Specialty Start Date End Date Jamar Fall DO PCP - General Internal Medicine 08/04/14 Distribution Collection Operator Relationship Specialty Start Date End Date Jamar Fall DO PCP - General Internal Medicine 08/04/14 Marco A Esqueda MD [address] [place] [address] [place] [address] Physician Hematology/Oncology 11/02/21 Christo Howard, ROCHELLE.[address] [place] [address] Nurse Practitioner Hematology/Oncology 11/02/21 Clementine Aguilar, ANITHA [address] [place] [address] [place] [address] Specialty Fly Maker Hematology/Oncology 11/02/21 Distribution Collection Operator Relationship Specialty Start Date End Date Jamar Fall DO PCP - General Internal Medicine 08/04/14 Marco A Esqueda MD [address] [facility] [place] [address] Physician Hematology/Oncology 11/02/21 Christo Howard, FITNESS SALES CONSULTANT.[facility] [address] [facility] [address] [place] [address] Nurse Practitioner Hematology/Oncology 11/02/21 Clementine Aguilar, ANITHA [address] [facility] [place] [address] Specialty Fly Maker Hematology/Oncology 11/02/21 Distribution Collection Operator Relationship Specialty Start Date End Date Jamar Fall, DO PCP - General Internal Medicine 08/04/14 Marco A Esqueda MD [address] [facility] [place] [address] Physician Hematology/Oncology 11/02/21 Chrsito Howard, FITNESS SALES CONSULTANT.SALES AND SERVICE ENGINEER [address] [facility] [place] [address] Nurse Practitioner Hematology/Oncology 11/02/21 Clementine Aguilar, ANITHA [address] [place] [address] [place] [address] Specialty Fly Maker Hematology/Oncology 11/02/21 Distribution Collection Operator Relationship Specialty Start Date End Date Jamar Fall, DO PCP - General Internal Medicine 08/04/14 Marco A Esqueda MD [address] [facility] [place] [address] Physician Hematology/Oncology 11/02/21 Christo Howadr, FITNESS SALES CONSULTANT.[facility] [address] [facility] [address] [place] [address] Nurse Practitioner Hematology/Oncology 11/02/21 Clementine Aguilar, ANITHA [address] [facility] [address] [place], [place] [address] Specialty Fly Maker Hematology/Oncology 11/02/21 Distribution Collection Operator Relationship Specialty Start Date End Date Jamar Fall, DO PCP - General Internal Medicine 08/04/14 Marco A Esqueda MD [address] [facility] [place] [address] Physician Hematology/Oncology 11/02/21 Christo Howard, FITNESS SALES CONSULTANT.SALES AND SERVICE ENGINEER [address] [facility] [place] [address] Nurse Practitioner Hematology/Oncology 11/02/21 Clementine Aguilar, RN [address] [facility] [place] [address] Specialty Fly Maker Hematology/Oncology 11/02/21 Distribution Collection Operator Relationship Specialty Start Date End Date Jamar Fall, DO PCP - General Internal Medicine 08/04/14 Marco A Esqueda MD [address] [facility] [place] [address] Physician Hematology/Oncology 11/02/21 Christo Howard, FITNESS SALES CONSULTANT.SALES AND SERVICE ENGINEER [address] [facility] [place] [address] Nurse Practitioner Hematology/Oncology 11/02/21 Clementine Aguilar, ANITHA [address] [facility] [place] [address] Specialty Fly Maker Hematology/Oncology 11/02/21 Distribution Collection Operator Relationship Specialty Start Date End Date Jamar Fall, DO PCP - General Internal Medicine 08/04/14 Marco A Esqueda MD [address] [facility] [place] [address] Physician Hematology/Oncology 11/02/21 Christo Howard, FITNESS SALES CONSULTANT.[facility] [address] [address] [place], [place] [address] Nurse Practitioner Hematology/Oncology 11/02/21 Clementine Aguilar, RN [address] [facility] [place] [address] Specialty Fly Maker Hematology/Oncology 11/02/21 Distribution Collection Operator Relationship Specialty Start Date End Date Jamar Fall, DO PCP - General Internal Medicine 08/04/14 Marco A Esqueda MD [address] [facility] [place] [address] Physician Hematology/Oncology 11/02/21 Christo Howard, FITNESS SALES CONSULTANT.[facility] [address] [place] [address] Nurse Practitioner Hematology/Oncology 11/02/21 Clementine Aguilar, ANITHA [address] [place] [address] [place] [address] Specialty Fly Maker Hematology/Oncology 11/02/21 Distribution Collection Operator Relationship Specialty Start Date End Date Jamar Fall, DO PCP - General Internal Medicine 08/04/14 Marco A Esqueda MD [address] [facility] [place] [address] Physician Hematology/Oncology 11/02/21 Christo Howard, FITNESS SALES CONSULTANT.[facility] [address] [address] [place] [address] Nurse Practitioner Hematology/Oncology 11/02/21 Clementine Aguilar, ANITHA [address] [facility] [place] [address] Specialty Fly Maker Hematology/Oncology 11/02/21 Distribution Collection Operator Relationship Specialty Start Date End Date Jamar Fall, PCP - General Internal Medicine 08/04/14 Marco A Esqueda MD [address] [facility] [place] [address] Physician Hematology/Oncology 11/02/21 Christo Howard, FITNESS SALES CONSULTANT.SALES AND SERVICE ENGINEER [address] [facility] [place] [address] Nurse Practitioner Hematology/Oncology 11/02/21 Clementine Aguilar, ANITHA [address] [facility] [place] [address] Specialty Fly Maker Hematology/Oncology 11/02/21 Distribution Collection Operator Relationship Specialty Start Date End Date Jamar Fall, DO PCP - General Internal Medicine 08/04/14 Marco A Esqueda MD [address] [facility] [place] [address] Physician Hematology/Oncology 11/02/21 Christo Howard, FITNESS SALES CONSULTANT.SALES AND SERVICE ENGINEER [address] [facility] [place] [address] Nurse Practitioner Hematology/Oncology 11/02/21 Clementine Aguilar, RN [address] [facility] [place] [address] Specialty Fly Maker Hematology/Oncology 11/02/21 Distribution Collection Operator Relationship Specialty Start Date End Date Jamar Fall, PCP - General Internal Medicine 08/04/14 Marco A Esqueda MD [address] [facility] [place] [address] Physician Hematology/Oncology 11/02/21 Christo Howard, FITNESS SALES CONSULTANT.SALES AND SERVICE ENGINEER [address] [facility] [place] [address] Nurse Practitioner Hematology/Oncology 11/02/21 Clementine Aguilar, ANITHA [address] [facility] [place] [address] Specialty Fly Maker Hematology/Oncology 11/02/21 Distribution Collection Operator Relationship Specialty Start Date End Date Jamar Fall DO PCP - General Internal Medicine 08/04/14 Marco A Esqueda MD [address] [facility] [place] [address] Physician Hematology/Oncology 11/02/21 Christo Howard, FITNESS SALES CONSULTANT.SALES AND SERVICE ENGINEER [address] [facility] [place] [address] Nurse Practitioner Hematology/Oncology 11/02/21 Clementine Aguilar, ANITHA [address] [facility] [place] [address] Specialty Fly Maker Hematology/Oncology 11/02/21 Distribution Collection Operator Relationship Specialty Start Date End Date Jamar Fall DO PCP - General Internal Medicine 08/04/14 Marco A Esqueda MD [address] [place] [address] [place] [address] Physician Hematology/Oncology 11/02/21 Christo Howard, FITNESS SALES CONSULTANT.SALES AND SERVICE ENGINEER [address] [place] [address] [place] [address] Nurse Practitioner Hematology/Oncology 11/02/21 Clementine Aguilar, RN [address] [facility] [place] [address] Specialty Fly Maker Hematology/Oncology 11/02/21 Distribution Collection Operator Relationship Specialty Start Date End Date Jamar Fall DO PCP - General Internal Medicine 08/04/14 Marco A Esqueda MD [address] [facility] [place] [address] Physician Hematology/Oncology 11/02/21 Christo Howard, FITNESS SALES CONSULTANT.SALES AND SERVICE ENGINEER [address] [place] [address] Nurse Practitioner Hematology/Oncology 11/02/21 Clementine Aguilar, ANITHA [address] [facility] [place] [address] Specialty Fly Maker Hematology/Oncology 11/02/21 Distribution Collection Operator Relationship Specialty Start Date End Date Jamar Fall DO PCP - General Internal Medicine 08/04/14 Marco A Esqueda MD [address] [place] [address] Physician Hematology/Oncology 11/02/21 Christo Howard, FITNESS SALES CONSULTANT.SALES AND SERVICE ENGINEER [address] [facility] [place] [address] Nurse Practitioner Hematology/Oncology 11/02/21 Clementine Aguilar, ANITHA [address] [facility] [place] [address] Specialty Fly Maker Hematology/Oncology 11/02/21 Distribution Collection Operator Relationship Specialty Start Date End Date Jamar Fall DO PCP - General Internal Medicine 08/04/14 Marco A Esqueda MD [address] [facility] [place] [address] Physician Hematology/Oncology 11/02/21 Christo Howard, FITNESS SALES CONSULTANT.SALES AND SERVICE ENGINEER [address] [facility] [place] [address] Nurse Practitioner Hematology/Oncology 11/02/21 Clementine Aguilar, ANITHA [address] [facility] [place] [address] Specialty Fly Maker Hematology/Oncology 11/02/21 Distribution Collection Operator Relationship Specialty Start Date End Date Jamar Fall MD [address] [place] [address] PCP - General Internal Medicine 05/31/23 Distribution Collection Operator Relationship Specialty Start Date End Date Jamar Fall MD [address] [place] [address] PCP - General Internal Medicine 05/31/23 Distribution Collection Operator Relationship Specialty Start Date End Date Jamar Fall DO PCP - General Internal Medicine 08/04/14 Marco A Esqueda MD [address] [facility] [place] [address] Physician Hematology/Oncology 11/02/21 Christo Howard, FITNESS SALES CONSULTANT.SALES AND SERVICE ENGINEER [address] [facility] [place] [address] Nurse Practitioner Hematology/Oncology 11/02/21 Clementine Aguilar, ANITHA [address] [facility] [place] [address] Specialty Fly Maker Hematology/Oncology 11/02/21 Distribution Collection Operator Relationship Specialty Start Date End Date Jamar Fall DO PCP - General Internal Medicine 08/04/14 Marco A Esqueda MD [address] [place] [address] [place] [address] Physician Hematology/Oncology 11/02/21 Christo Howard APRN.SALES AND SERVICE ENGINEER [address] [place] [address] [place] [address] Nurse Practitioner Hematology/Oncology 11/02/21 Clementine Aguilar RN [address] [place] [address] [place] [address] Specialty Fly Maker Hematology/Oncology 11/02/21 Team Status: Active Member Role [...] November 23, 2023 End: November 23, 2023 Distribution Collection Operator Relationship Specialty Start Date End Date Jamar Fall DO PCP - General Internal Medicine 08/04/14 Marco A Esqueda MD [address] [place] [address] [place] [address] Physician Hematology/Oncology 11/02/21 Christo Howard, FITNESS SALES CONSULTANT.SALES AND SERVICE ENGINEER [address] [facility] [place] [address] Nurse Practitioner Hematology/Oncology 11/02/21 Clementine Aguilar, ANITHA [address] [facility] [place] [address] Specialty Fly Maker Hematology/Oncology 11/02/21 Distribution Collection Operator Relationship Specialty Start Date End Date Jamar Fall DO PCP - General Internal Medicine 08/04/14 Marco A Esqueda MD [address] [place] [address] [place] [address] Physician Hematology/Oncology 11/02/21 Christo Howard, FITNESS SALES CONSULTANT.SALES AND SERVICE ENGINEER [address] [place] [address] [place] [address] Nurse Practitioner Hematology/Oncology 11/02/21 Clementine Aguilar, ANITHA [address] [facility] [place] [address] Specialty Fly Maker Hematology/Oncology 11/02/21 Team Status: Active Member Role Status Dates Jamar Fall DO Primary Care Provider Active Start: January 25, 2024 SAMAN Collins Attending Provider Active Start: January 25, 2024 Team Status: Inactive Member Role Status Dates Jamar Fall DO Primary Care Provide r, Attending Provider Active Start: March 26, 2024 End: March 26, 2024 Distribution Collection Operator Relationship Specialty Start Date End Date Jamar Fall DO PCP - General Internal Medicine 08/04/14 Marco A Esqueda MD [address] [facility] [place] [address] Physician Hematology/Oncology 11/02/21 Christo Howard, FITNESS SALES CONSULTANT.SALES AND SERVICE ENGINEER [address] [facility] [place] [address] Nurse Practitioner Hematology/Oncology 11/02/21 Clementine Aguilar, ANITHA [address] [facility] [place] [address] Specialty Fly Maker Hematology/Oncology 11/02/21 Distribution Collection Operator Relationship Specialty Start Date End Date Jamar Fall DO PCP - General Internal Medicine 08/04/14 Marco A Esqueda MD [address] [facility] [place] [address] Physician Hematology/Oncology 11/02/21 Christo Howard, FITNESS SALES CONSULTANT.SALES AND SERVICE ENGINEER [address] [facility] [place] [address] Nurse Practitioner Hematology/Oncology 11/02/21 Clementine Aguilar, ANITHA [address] [facility] [place] [address] Specialty Fly Maker Hematology/Oncology 11/02/21 Distribution Collection Operator Relationship Specialty Start Date End Date Jamar Fall DO PCP - General Internal Medicine 08/04/14 Marco A Esqueda MD [address] [facility] [place] [address] Physician Hematology/Oncology 11/02/21 Christo Howard, FITNESS SALES CONSULTANT.SALES AND SERVICE ENGINEER [address] [facility] [place] [address] Nurse Practitioner Hematology/Oncology 11/02/21 Clementine Aguilar, ANITHA [address] [facility] [place] [address] Specialty Fly Maker Hematology/Oncology 11/02/21 Distribution Collection Operator Relationship Specialty Start Date End Date Jamar Fall DO PCP - General Internal Medicine 08/04/14 Marco A Esqueda MD [address] [facility] [place] [address] Physician Hematology/Oncology 11/02/21 Christo Howard, FITNESS SALES CONSULTANT.SALES AND SERVICE ENGINEER [address] [facility] [place] [address] Nurse Practitioner Hematology/Oncology 11/02/21 Clementine Aguilar RN [address] [facility] [place] [address] Specialty Fly Maker Hematology/Oncology 11/02/21 Distribution Collection Operator Relationship Specialty Start Date End Date Jamar Fall DO PCP - General Internal Medicine 08/04/14 Marco A Esqueda MD [address] [facility] [place] [address] Physician Hematology/Oncology 11/02/21 Christo Howard, FITNESS SALES CONSULTANT.SALES AND SERVICE ENGINEER [address] [facility] [place] [address] Nurse Practitioner Hematology/Oncology 11/02/21 Clementine Aguilar, ANITHA [address] [facility] [place] [address] Specialty Fly Maker Hematology/Oncology 11/02/21 Distribution Collection Operator Relationship Specialty Start Date End Date Jamar Fall DO [address] [place] [id number] PCP - General Internal Medicine 05/31/23 Distribution Collection Operator Relationship Specialty Start Date End Date Jamar Fall DO [address] [place] [id number] PCP - General Internal Medicine 05/31/23 Reason [...] Procedures DENOSUMAB INJECTION Marco A Esqueda MD [address] [place] [address] [place] [address] [place] [address] Referral ID Status Reason Start Date Expiration Date V isits Requested Visits Authorized [id number] Authorized 11/11/2021 07/16/2022 99 99 Reason Comments [...] of R ear Marco A Esqueda MD [address] [place] [address] [place] [address] Lety Holguin MD [address] [place] [address] Referral ID Status Reason Start Date Expiration Date Visits Re quested Visits Authorized [id number] Closed 08/04/2023 01/31/2024 1 1 Reason Comments [...] content) DATE CREATED AUTHOR 10/31/2022 [facility] DATE CREATED AUTHOR AUTHOR'S ORGANIZ ATION 03/02/2024 [facility] DATE CREATED AUTHOR AUTHOR'S ORGANIZ ATION 04/02/2024 [facility] DATE CREATED AUTHOR AUTHOR'S ORGANIZ ATION 10/08/2024 [facility] DATE CREATED AUTHOR AUTHOR'S ORGANIZ ATION 02/22/2025 [facility] DATE CREATED AUTHOR AUTHOR'S ORGANIZ ATION 02/28/2025 [facility] Inactive Administered Medications - up [...] BE BASED ON THE PRIMARY CLINICAL RECORDS. [facility]. provides no warranty or guarantee of the accuracy or completeness of information in this document.
[2025-03-20 10:40] LABS: Hematocrit 33.8 % (42.0-54.0); Hemoglobin 11.4 g/dL (14.0-18.0); Immature Granulocytes Abs Auto 0.04 10^3/uL (0.00-0.03); Immature Granulocytes Pct Auto 0.7 % (0.0-0.5); Lymphocytes Absolute Auto 1.5 10^3/uL (1.2-3.8); Mean Corpuscular HGB Conc 33.7 g/dL (29.9-35.2); Mean Corpuscular Hemoglobin 32.2 pg (25.9-34.0); Mean Corpuscular Volume 95.5 fL (80.0-94.0); Platelet Count 185 10^3/uL (150-450); Red Blood Count 3.54 10^6/uL (4.70-6.10); White Blood Count 5.6 10^3/uL (4.0-11.0)
[2025-03-20 11:18] LABS: Alanine Aminotransferase 28 U/L (16-63); Albumin Globulin Ratio 1.0; Albumin Level 3.3 g/dL (3.4-5.0); Alkaline Phosphatase 71 U/L (46-116); Anion Gap 13.6; Aspartate Amino Transferase 17 U/L (15-37); Blood Urea Nitrogen 15.0 mg/dL (7.0-18.0); Calcium 8.9 mg/dL (8.5-10.1); Carbon Dioxide 26.6 mmol/L (21.0-32.0); Chloride 105 mmol/L (98-107); Cholesterol 133 mg/dL (<=200); Estimated GFR (African America >60 (>=60 mL/min/1.73m^2); Estimated GFR (Non-African Ame >60 (>=60 mL/min/1.73m^2); Globulin 3.3 g/dL; Glucose 116 mg/dL (74-106); HDL Cholesterol 43 mg/dL (40-60); Potassium 5.2 mmol/L (3.5-5.1); Sodium 140 mmol/L (136-145); TSH W/ REFLEX FT4 1.719 uIU/mL (0.358-3.740); Total Protein 6.6 g/dL (6.4-8.2); Triglycerides 117 mg/dL (<=150); VLDL CHOLESTEROL 23.4 mg/dL
== END 2025-03-20 10:09 | disposition home or self-care (01) ==
LOC: LAB 10:11
PROVIDERS: PCP Internal Medicine; Visit Provider Nurse Practitioner Family
DX: Z00.00 Encounter for general adult medical examination without abnormal findings (principal); I25.10 Atherosclerotic heart disease of native coronary artery without angina pectoris; E78.2 Mixed hyperlipidemia; I10 Essential (primary) hypertension
CPT/HCPCS: 36415; 80053; 80061; 84443; 85025

== ENCOUNTER 2025-04-03 06:52 | Outpatient (OUT) | payer MEDICARE, OTHER, SELFPAY ==
--- OUTSIDE RECORDS SUMMARY | 2025-03-20 09:20 | XMS_ITS | Encounter Summary ---
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 No recent testing. Valve Disorder Denies lightheadedne ss and palpitations. Hypertension Had labs in January. Hyperlipidemia No recent lipid pane l. [facility] one [facility] about a [facility]. 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; Adult general medical exam; Essential hypertension; Other fatigue; Nonrheumatic aortic (valve) stenosis; Hx of CABG Social History Tobacco Use Types Packs/Day Years Used Date Smoking Tobacco: Never Smokeless Tobacco: Never Alcohol Use Standard Drinks/Week Comments Not Currently [...] Value Date Recorded Sex Assigned at Male 03/19/2025 11:14 AM EDT Legal Sex Male 11:25 PM EDT Gender Identity Male 03/19/2025 11:14 AM EDT Sexual Orientation Heterosexual or Straight 09/2024 11:14 AM EDT documented as of this encounter Last Filed Vital Signs Vital Sign Reading Time Taken Comments Blood Pressure 114/58 03/20/2025 9:28 AM EDT Pulse 57 03/20/2025 9:28 AM EDT Temperature - - Respiratory Rate - - Oxygen Saturation 97% 03/20/2025 9:28 AM EDT Inhaled Oxygen Concentration - - Weight 91.2 kg (201 lb) 03/20/2025 9:28 AM EDT Height 165.1 cm (5' 5 ) 03/20/2025 9:28 AM EDT Body Mass Index 33.45 03/20/2025 9:28 AM EDT documented in this encounter Progress Notes * Katelyn Quiroz CNP - 03/20/2025 9:20 AM EDT Images from the original note were not included. Cardiovascular Medicine [facility] SUBJECTIVE Chief Complaint Patient presents with Coronary Artery Disease Denies chest pain and SOB. No recent testing. Valve Disorder Denies lightheadedness and palpitations. Hypertension Had labs in January 2025. Hyperlipidemia No recent lipid panel[facility] Rajesh Felix is a 80 y.o. male here for follow-up. PMHx: CAD s/p CABG 2014, HTN, HLD, DM type II HPI 03/20/2025 Today he notes he has less energy. He is not very active. He would be SOB with any activity Denies c/o CP, orthopnea, PND, LE edema, dizziness/LH, palpitations, syncope. Last ECHO was in 2022. Problem List[1] Medical History[2] Family History[3] Social History[4] Allergies[5] OBJECTIVE Visit Vitals BP 114/58 (BP Location: Left arm, Patient Position: Sitting) Pulse 57 Ht 1.651 m (5' 5 ) Wt 91.2 kg (201 lb) SpO2 97% BMI 33.45 kg/m?? Smoking Status Never BSA 2.05 m?? Medications: Current Medications[6] Physical Exam Constitutional: Appearance: Normal appearance. He is obese. HENT: Head: Normocephalic and atraumatic. Right Ear: External ear normal. Left Ear: External ear normal. Eyes: Extraocular Movements: Extraocular movements intact. Pupils: Pupils are equal, round, and reactive to light. Neck: Vascular: No carotid bruit. Cardiovascular: Rate and Rhythm: Normal rate and regular rhythm. Pulses: Normal pulses. Heart sounds: Murmur heard. Pulmonary: Effort: Pulmonary effort is normal. Breath sounds: Normal breath sounds. Abdominal: General: Bowel sounds are normal. Palpations: Abdomen is soft. Musculoskeletal: General: Normal range of motion. Cervical back: Neck supple. Right lower leg: No edema. Left lower leg: No edema. Skin: General: Skin is warm and dry. Neurological: General: No focal deficit present. Mental Status: He is alert and oriented to person, place, and time. Psychiatric: Mood and Affect: Mood normal. Behavior: Behavior normal. Thought Content: Thought content normal. Judgment: Judgment normal. Labs: No results found for: EXTCMP , BMPR1A , CBCDIF , BNP , LASAP , RED No visits with results within 6 Month(s) from this visit. Latest known visit with results is: No results found for any previous visit. Component 01/25/24 10/30/23 07/27/23 04/24/23 02/02/23 11/10/22 [...] Rate 91 89 89 93 90 90 Testing/Procedures: EKG 03/29/24-sinus bradycardia with left bundle branch block-no acute ST-T wave changes noted, no acute concerns ECHO 06/27/2023 LVEF 55-60%, mild increased LVH Grade 2 diastolic dysfunction RV moderately dilated with normal systolic function Biatrial enlargement Moderate to severe tricupid regurg RVSP 40 Mild MR Mild to mod aortic stenosis with mild aortic valve regurg Echocardiogram 04/2022: Global left ventricular systolic function is normal. EF 60%. Mild diastolic dysfunction. Moderatelydilated right ventricle and normal systolic function. Moderate aortic valve stenosis with a DVI of 0.630. Moderate tricuspid regurgitation. Mild elevated right-sided pressures Echocardiogram 01/26/2021 LVSF normal Mild DD Mild AV stenosis and regurgitation Mild TV regurg Mildly elevated Rt Sided pressures Stress test 09/05/2020: Conclusion: 1. Normal myocardial perfusion with no reversible ischemia 2. 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 - CBC; Future - Comprehensive metabolic panel; Future - Lipid panel; Future - TSH3 Reflex to FT4; Future - Transthoracic echo (TTE) complete; Future - Lexiscan Stress Myocardial Perfusion Imaging; Future Adult general medical exam - TSH3 Reflex to FT4; Future Essential hypertension - TSH3 Reflex to FT4; Future Other fatigue - Lexiscan Stress Myocardial Perfusion Imaging; Future Nonrheumatic aortic (valve) stenosis Hx of CABG #CAD s/p CABG -s/p CABG 2015 -NM Stress test 09/09/2020: no ischemia, EF 61% -LDL 2019: 70 -Plan for stress test every 5-6 years d/t asymptomatic before CABG in 2014 -Pt notes increased fatigue. He also has ALEXANDER -Will plan to obtain a lexiscan stress test after his ECHO. He notes due to his lack of activity hegets significant ALEXANDER and he would not be able to proceed with a treadmill stress test, therefore lexiscan was ordered. -Continue ASA, lipitor and metoprolol #HTN - BP is controlled -Continue lisinopril/hydrochlorothiazide, Toprol #HLD -On atorvastatin -Follow-up labs ordered #Aortic valve stenosis -ECHO ordered *ECHO first then stress test if ECHO doesn't show significant changes in valve function If testing unremarkable, Follow up in about 6 months (around 09/17/2025). Katelyn Quiroz CNP [facility] Cardiovascular Medicine [1] Patient Active Problem List Diagnosis Anisocoria Coronary arteriosclerosis Cardiovascular stress test abnormal Diabetes mellitus (CMS/HCC) Electrocardiogram abnormal Preoperative cardiovascular examination History of hypertension History of kidney stones History of prostate cancer Essential hypertension Hyperlipidemia Impaired hearing Microscopic hematuria Carcinoma of prostate (CMS/HCC) Nocturia Nonrheumatic aortic (valve) stenosis Obesity Rising PSA following treatment for malignant neoplasm of prostate Sensorineural hearing loss, bilateral Sleep apnea Type 2 diabetes mellitus without complications (CMS/HCC) Vasomotor rhinitis Kidney stones Cervical spondylosis Mass of skin of left shoulder Neck pain Primary osteoarthritis, right shoulder Shoulder pain, right Type 2 diabetes mellitus with hyperglycemia (CMS/HCC) Arthritis of right hand Bilateral carpal tunnel syndrome Carpal tunnel syndrome Paresthesia of both hands [2] Past Medical History: Diagnosis Date Abnormal ECG Cancer (CMS/HCC) Carotid artery stenosis Coronary artery disease Diabetes mellitus (CMS/HCC) Heart murmur Hyperlipidemia Hypertension Sleep apnea [3] Family History Problem Relation Name Age of Onset Coronary artery disease Father [4] Social History Tobacco Use Smoking status: Never Smokeless tobacco: Never Substance Use Topics Alcohol use: Not Currently [5] Allergies Allergen Reactions Penicillins Hives, Other and Unknown Other reaction(s): Unknown Other Reaction(s): HIVES, Unknown [6] Current Outpatient Medications: aspirin 81 mg chewable tablet, Chew 1 tablet every day by oral route., Disp: , Rfl: atorvastatin (Lipitor) 40 mg tablet, Take 1 tablet by mouth in the evening., Disp: , Rfl: enzalutamide 80 mg tablet, Take 160 mg by mouth in the morning., Disp: , Rfl: glimepiride (Amaryl) 1 mg tablet, TAKE 1/2 TABLET BY MOUTH DAILY 30 MINUTES PRIOR TO BREAKFAST (Patient taking differently: Take 0.5 tablets by mouth before breakfast.), Disp: , Rfl: lisinopriL-hydrochlorothiazide 20-12.5 mg tablet, Take 1 tablet by mouth in the morning., Disp: , Rfl: metFORMIN (Glucophage) 500 mg tablet, Take 500 mg by mouth with breakfast and with evening meal., Disp: , Rfl: metoprolol tartrate (Lopressor) 25 mg tablet, Take 1 tablet by mouth in the morning and at bedtime., Disp: , Rfl: documented in this encounter Plan of Treatment Scheduled Orders Name Type Priority Associated Diagnoses Orde r Schedule CBC Lab Routine 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 Expected: 03/20/2025 (Approximate), Expires: 03/20/2026 Comprehensive metabolic panel Lab Routine Mixed hyperlipidemia 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 Expected: 03/20/2025 (Approximate), Expires: 03/20/2026 Lipid panel Lab Routine Mixed hyperlipidemia 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 Expected: 03/20/2025 (Approximate), Expires: 03/20/2026 TSH3 Reflex to FT4 Lab Routine Mixed hyperlipidemia 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 Adult general medical exam Essential hypertension Expected: 03/20/2025 (Approximate), Expires: 03/20/2026 Transthoracic echo (TTE) complete Echocardiography Routine 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 Expected: 03/20/2025 (Approximate), Expires: 03/20/2027 Lexiscan Stress Myocardial Perfusion Imaging Cardiac Services Routine 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 Other fatigue Expected: 03/20/2025 (Approximate), Expires: 03/20/2027 documented as of this encounter Visit Diagnoses Diagnosis Mixed hyperlipidemia- Primary 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
--- OUTSIDE RECORDS SUMMARY | 2025-04-03 06:54 | XMS_ITS ---
Author Organization [facility] Address [address] [place], [place] [id number] Care Team Providers Care New Grad Rn Name Role Phone Jamar Jones Primary Care Provider [phone] Galina Wall GUIDE RAIL CLEANER.PUBLIC TRANSPORTATION INSPECTOR Unavailable [phone] Clementine Aguilar RN Unavailable [phone] Saul Galdamez MD Unavailable [phone] Active Problems Problem Noted Date Diagnosed [...]
--- OUTSIDE RECORDS SUMMARY | 2025-04-03 06:54 | XMS_ITS | Encounter Summary ---
Author Organization [facility] Address [address] [place], [place] [address] Care Team Providers Care Pressure Test Operator Name Role Phone Jamar Jones DO Primary Care Provider [phone] Marco A Esqueda MD Unavailable Unavail able Galina Wall APRN.DIRECTOR GEOTHERMAL OPERATIONS Unavailable [phone] Clementine Aguilar RN Unavailable [phone] Saul Galdamez MD Unavailable [phone] Source Comments In the event this information is protected by the Federal Confidentiality of Alcohol and Drug AbusePatient Records regulations: The Federal rules restrict any use of the information to criminally investigate or prosecute any alcohol or drug abuse patient.[facility] Encounter Details Date Type Department Care [...] Data from: [email or web address] Last address used for calculation [...] Description 05/15/2025 11:30 AM EDT Office Visit [facility] [address] [place] [address] [place] [address] 3 month lab 05/22/2025 11:00 AM EST Visit (SP) Office Hematology/Oncology [facility] [place] [address] Chary Hodge, BUILDING MANAGER.DIRECTOR GEOTHERMAL OPERATIONS [facility] [place] [address] 3 month follow up with xgeva inj 05/22/2025 11:30 AM EST Infusion Center Hematology/Oncology [facility] [place] [address] 3 month follow up with xgeva inj documented as of this encounter Visit Diagnoses Not on filedocumented in this encounter Care Teams Pressure Test Operator Relationship Specialty Start Date End Date Jamar Jones DO PCP - General Internal Medicine 08/04/14 Marco A Esqueda MD Physician Hematology/Oncology 11/02/21 01/20/25 Galina Wall, BUILDING MANAGER.DIRECTOR GEOTHERMAL OPERATIONS [facility] [place] [address] Nurse Practitioner Hematology/Oncology 11/02/21 Clementine Aguilar, ANITHA [facility] [address] [place] [address] Specialty Digital Forensic Examiner Hematology/Oncology 11/02/21 Saul Galdmaez MD [address] [place] [address] [place] [address] Physician Hematology/Oncology 01/21/25 documented as of this encounter
--- OUTSIDE RECORDS SUMMARY | 2025-04-03 06:54 | XMS_ITS | Clinical Summary ---
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; Adult general medical exam; Essential hypertension; Other fatigue; Nonrheumatic aortic (valve) stenosis; Hx of CABG from Last 3 Months Family History Medical [...] age to complete this topic Insurance MEDICARE Member Subscriber Plan / Payer (Ef fective 2012-Present) Name:Rajesh Felix Member ID:[id number] Relation to Subscriber:Self Name:Rajesh Felix Subscriber ID:[id number] Payer ID:[id number] Group ID:Not on file Type:Medicare Address: [facility] [place] [id number] [employer] Care Teams Application Services Manager Relationship Specialty Start Date End Date Jamar Jones DO [address] [facility] [place] [phone] PCP - General 04/27/22
--- OUTSIDE RECORDS SUMMARY | 2025-04-03 06:54 | XMS_ITS | Clinical Summary ---
Author Organization [facility] Address [address] [place], [place] [id number] Care Team Providers Care Mold Engraver Name Role Phone Jamar Jones DO Primary Care Provider [phone] Galina Wall OFFICE SPECIALIST.RETANNER Unavailable [phone] Clementine Aguilar RN Unavailable [phone] Saul Galdamez MD Unavailable [phone] Allergies Active Allergy Reactions Criticality Noted [...] 02/20/2025 10:45 AM EDT Infusion Center Hematology/Oncology [address] [place] [address] [place] [address] Malignant neoplasm of prostate (HCC) (Primary Dx) 02/20/2025 10:20 AM EDT Visit (SP) Office Hematology/Oncology [address] [place] [address] [place] [address] Saul Galdamez MD Malignant neoplasm of prostate [...] (BRIANA) 08/26/2020 COVID-19 vaccine, age 12+ yr (MODERNA SPIKEVAX) 04/26/2024 COVID-19 vaccine, age 12+ yr , bivalent [...] is lower risk 7 02/02/2023 Data from: https://www.neighborhoodatlas.[facility].edu/. Last address used for calculation [address] 02/02/2023 Sex and Gender Information Value [...] Description 05/15/2025 11:30 AM EDT Office Visit [facility] [address] [place] [address] 3 month lab 05/22/2025 11:00 AM EST Visit (SP) Office Hematology/Oncology [address] [place] [address] Chary Hodge APRN.RETANNER [address] [place] [address] 3 month follow up with xgeva inj 05/22/2025 11:30 AM [facility] Hematology/Oncology [address] [place] [address] 3 month follow up with xgeva inj [...] ANTIGEN DIAGNOSTIC (2025 9:43 AM EDT) Pathologist [facility] PSA 0.26 <2.60 ng/mL 2025 8:23 PM EDT [facility] Comment:Total PSA test metho dology used is the Electrochemiluminescence Immunoassay by [employer]. Total PSA values by differing methodologies cannot be interchanged. Blood BLOOD SPECIMEN / Unknown Venipuncture / Unknown 2025 9:43 AM EDT 2025 9:43 AM EDT us Marco A Esqueda MD LABORATORY Final Re sult [facility] [address] [place] [address], * (ABNORMAL) COMPREHENSIVE METABOLIC PANEL (2025 9:43 AM EDT) Pathologist [facility] Protein, Total 6.4 6.3 - 8.0 g/dL 2025 10:12 AM EDT [facility] Albumin 4.2 3.9 - 4.9 g/dL 2025 10:12 AM EDT [facility] Calcium, Total 9.3 8.5 - 10.2 mg/dL 2025 10:12 AM EDT [facility] Bilirubin, Total 0.6 0.2 - 1.3 mg/dL 2025 10:12 AM EDT [facility] Alkaline Phosphatase 73 38 - 113 U/L 2025 10:12 AM EDT [facility] AST 17 14 - 40 U/L 2025 10:12 AM EDT [facility] ALT 16 10 - 54 U/L 2025 10:12 AM [facility] Glucose 122(H) 74 - 99 mg/dL 2025 10:12 AM [facility] Comment: The [place] Diabetes Association (ADA) provides guidance for cutoff [...] Standards of Medical Care in Diabetes 2016, [place] [employer] Association. Diabetes Care. 2016.39(Suppl 1). BUN 14 9 - 24 mg/dL 2025 10:12 AM [facility] Creatinine 0.68(L) 0.73 - 1.22 mg/dL 2025 10:12 AM [facility] Sodium 136 136 - 144 mmol/L 2025 10:12 AM [facility] Potassium 4.5 3.7 - 5.1 mmol/L 2025 10:12 AM [facility] Chloride 101 98 - 107 mmol/L 2025 10:12 AM [facility] CO2 25 22 - 30 mmol/L 2025 10:12 AM [facility] Anion Gap 10 8 - 15 mmol/L 2025 10:12 AM [facility] Estimated Glomerular Filtration Rate 95 >=60 mL/min/1. 73m 2025 10:12 AM [facility] Comment:Estimated Glomerular Filtration Rate (eGFR) [...] A Esqueda MD LABORATORY Final Re sult [facility] [address] [place] [address] * (ABNORMAL) COMPLETE BLOOD COUNT AND DIFFERENTIAL (2025 9:43 AM EDT) WBC 7.09 3.70 - 11.00 k/uL 2025 9:55 AM EDT [facility] RBC 3.69(L) 4.20 - 6.00 m/uL 2025 9:55 AM EDT [facility] Hemoglobin 12.0(L) 13.0 - 17.0 g/dL 2025 9:55 AM EDT [facility] Hematocrit 35.3(L) 39.0 - 51.0 % 2025 9:55 AM EDT [facility] MCV 95.7 80.0 - 100.0 fL 2025 9:55 AM EDT [facility] MCH 32.5 26.0 - 34.0 pg 2025 9:55 AM EDT [facility] MCHC 34.0 30.5 - 36.0 g/dL 2025 9:55 AM EDT [facility] RDW-CV 12.7 11.5 - 15.0 % 2025 9:55 AM EDT [facility] Platelet Count 204 150 - 400 k/uL 2025 9:55 AM EDT [facility] MPV 10.1 9.0 - 12.7 fL 2025 9:55 AM EDT [facility] Neutrophils % 52.2 % 2025 9:55 AM EDT [facility] Abs Neut 3.70 1.45 - 7.50 k/uL 2025 9:55 AM EDT [facility] Lymphocytes % 29.5 % 2025 9:55 AM EDT [facility] Abs Lymph 2.09 1.00 - 4.00 k/uL 2025 9:55 AM EDT [facility] Monocytes % 9.6 % 2025 9:55 AM EDT [facility] Abs [place] 0.68 <0.87 k/uL 2025 9:55 AM EDT [facility] Eosinophils % 7.5 % 2025 9:55 AM EDT [facility] Abs Eosin 0.53(H) <0.46 k/uL 2025 9:55 AM EDT [facility] Basophils % 0.4 % 2025 9:55 AM EDT [facility] Abs Baso 0.03 <0.11 k/uL 2025 9:55 AM EDT [facility] Immature Granulocytes % 0.8 % 2025 9:55 AM EDT [facility] Abs Immature Gran 0.06 <0.10 k/uL 2025 9:55 AM EDT [facility] NRBC 0.0 /100 WBC 2025 9:55 AM EDT [facility] Absolute nRBC <0.01 <0.01 k/uL 2025 9:55 AM EDT [facility] Diff Type Auto 2025 9:55 AM EDT [facility] Blood BLOOD SPECIMEN / Unknown Venipuncture / Unknown 2025 9:43 AM EDT 2025 9:43 AM EDT Marco A Esqueda MD LABORATORY Final Re sult [facility] [place] [facility] [address] [place] [address] from Last 3 Months Insurance MEDICARE MEDICARE SUPPLEMENT Care Teams Mold Engraver Relationship Specialty Start Date End Date Jamar Jones DO PCP - General Internal Medicine 08/04/14 Galina Wall APRN.RETANNER [address] [place] [address] [place] [address] Nurse Practitioner Hematology/Oncology 11/02/21 Clementine Aguilar, ANITHA [address] [place] [address] Specialty Ratoprinter Hematology/Oncology 11/02/21 Saul Galdamez MD [address] [place] [address] [place] [address] Physician Hematology/Oncology 01/21/25
--- OUTSIDE RECORDS SUMMARY | 2025-04-03 06:54 | XMS_ITS | Clinical Summary ---
Author Organization [facility] Address [address] [place] [address] Care Team Providers Care Field Adjuster Name Role Phone Jamar Jones DO Primary Care Provider [phone] Allergies Active Allergy Reactions Criticality Noted Date [...] for 14 days. 40 g 4 Active Active Problems Problem Noted Date Diagnosed [...] (06/01/2023): Jun 01, 2016 Entered By: HARVINDER TORBIIO Comment: PROSTATECTOMY 10/2014 Resolved Problems Problem Noted Date Diagnosed Date Resolved Date Primary hypertension 06/01/2023 023 Encounters Date Type Department Care Team Description 02/25/2025 10:20 AM EDT Office Visit [facility] [address] [place] [address] Deisy Boo APRN-ALEXA Seborrheic keratosis (Primary Dx); Melanocytic nevus of trunk; Actinic keratosis; Lentigines; Psoriasis vulgaris ; History of SCC (squamous cell carcinoma) of skin 02/25/2025 [facility] [address] [place] [address] Deisy Boo APRN-CNP 02/25/2025 Travel 02/18/2025 Travel [...] Dermatology [address] [place] [address] Deisy Boo APRN-CNP [address] [place] [address] Health Maintenance Due Date Last Done Comments Influenza Vaccine (#1) 2025 4, 05/01/2023, 04/28/2022, Additional history exists Pneumococcal Vaccine: 65+ Years Completed 06/12/2017, 06/01/2017, 05/11/2015, Additional history exists Procedures Procedure Name Priority Date/Time Associated Diagnosis Comments CRYOTHERAPY SKIN LESION Routine 02/26/20 10:15 AM EDT Actinic keratosis from Last 3 Months Results * Cryotherapy, skin lesion (02/25/2025 10:15 AM EDT) us Deisy Boo APRN-CLERK TELEVISION PRODUCTION DERM PROCEDURE ORDERAB LES Final Result from Last 3 Months Insurance MEDICARE [facility] Care Teams Field Adjuster Relationship Specialty Start Date End Date Jamar Jones DO [address] [place] [address] PCP - General Internal Medicine 05/31/23
--- OUTSIDE RECORDS SUMMARY | 2025-04-03 06:54 | XMS_ITS | Encounter Summary ---
Author Organization [facility] Address [address] [place] [address] Care Team Providers Care Electronic Field Service Engineer Name Role Phone Jamar Jones DO Primary Care Provider [phone] Marco A Esqueda MD Unavailable Unavail able Galina Wall APRN.LABEL SEWER Unavailable [phone] Clementine Aguilar RN Unavailable [phone] Saul Galdamez MD Unavailable [phone] Source Comments In the event this information is protected by the Federal Confidentiality of Alcohol and Drug AbusePatient Records regulations: The Federal rules restrict any use of the information to criminally investigate or prosecute any alcohol or drug abuse patient.[facility] Reason for Visit * Reason Comments Refill Request Encounter Details Date Type Department Care Team (Late st Contact Info) Description 04/01/2024 Refill Hematology/Oncology [address] [place] [address] [place] [address] Marco A Esqueda MD Refill Request [...] is lower risk 7 02/02/2023 Data from: https://www.neighborhoodatlas.medicine.[facility]/. Last address used for calculation [address] [...] Description 05/15/2025 11:30 AM EDT Office Visit [facility] [address] [place] [address] [place] [address] 3 month lab 05/22/2025 11:00 AM EST Visit (SP) Office Hematology/Oncology [facility] [place] [place] [address] Chary Hodge, DECORATOR INSPECTOR.LABEL SEWER [address] [place] [address] 3 month follow up with xgeva inj 05/22/2025 11:30 AM EST Infusion Center Hematology/Oncology [facility] [place] [place] [address] 3 month follow up with xgeva inj documented as of this encounter Visit Diagnoses Not on filedocumented in this encounter Care Teams Electronic Field Service Engineer Relationship Specialty Start Date End Date Jamar Jones DO PCP - General Internal Medicine 08/04/14 Marco A Esqueda MD Physician Hematology/Oncology 11/02/21 01/20/25 Galina Wall, DECORATOR INSPECTOR.LABEL SEWER [facility] [place] [place] [address] Nurse Practitioner Hematology/Oncology 11/02/21 Clementine Aguilar, ANITHA [address] [place] [address] Specialty Hockey Instructor Hematology/Oncology 11/02/21 Saul Galdamez MD [facility] [place] [place] [address] Physician Hematology/Oncology 01/21/25 documented as of this encounter
--- OUTSIDE RECORDS SUMMARY | 2025-04-03 06:55 | XMS_ITS | CCD ---
Author Organization [facility] Care Team Providers Care Applied Behavior Science Specialist Name Role Phone Jamar Fall DO Primary Care Provider Marco A Esqueda MD R Unavailable [facility] ATTENDANT.ALEXA, Christo Unavailable [phone] Lauren WELSH, Clementine Unavailable JAMAR FALL Primary Care Physician [phone] Jamar Fall DO Primary Care Provider Marco A Esqueda MD R Unavailable [facility] ATTENDANT.Cary LIUy Unavailable [phone] Lauren WELSH, Clementine Unavailable [phone] Jamar Fall DO Primary Care Provider Dheeraj JAMES, Marco A R Unavailable [phone] [facility] ATTENDANT.Cary LIUy Unavailable Lauren WELSH, Clementine Unavailable Jamar [...] RN, Clementine Unavailable Juan David JAMES, Jamar Jessica Primary Care Provider Juan David DO, Jamar E Primary Care Provider LONG BOO Attending Unavailable MARCO A ESQUEDA Referring Unavailable EMELINA LOUIS Attending Unavailable BALL, JAMAR E Referring Unavailable PABLO CHRISTINA Attending Unavailable LONG BOO Attending Unavailable ALEXIA FRANCO Attending Unavailable BALL, JAMAR E Primary Care [...] E Primary Care Provider Sharon JAMES, Nicole aLng Attending Unavailable Sharon JAMES, Nicole Lang Attending Unavailable Sharon JAMES, Nicole Lang Attending Unavailable ANIRUDH CACERES Attending Unavailable LORA ENGLISH Attending Unavailable Anthony SCRUGGS Attending Unavailable Anthony SCRUGGS Attending Unavailable Anthony SCRUGGS Attending Unavailable Anthony SCRUGGS Attending Unavailable Anthony SCRUGGS Attending Unavailable Allergies Allergy Classification Reported Allergen(s) Allergy Type Date of Onset Reaction(s) Facility (18 sources) Penicillins; Translations: [PENICILLINS] Drug Allergy [address] [facility] (20 sources) Penicillin G; Translations: [penicillin G benzathine] Drug Allergy 1 Unknown (qualifier value) [facility] (20 sources) Penicillins Drug Allergy [address] [facility] (20 sources) Simvastatin; Translations: [SIMVASTATIN] Drug Allergy [address] [facility] (1 source) Penicillins Drug allergy (disorder) 5 [facility] (1 source) Penicillin Drug Allergy Unknown [facility] (1 source) Allergies Reconciled Propensity to adverse reactions Unknown [facility] (1 source) patient allergy list reviewed by nurse or physicia Propensity to adverse reactions 9 Comment:Done [facility] Other (6 sources) Simvastatin Propensity to adverse reactions 2 [facility] (1 source) Penicillins Drug Allergy [address] [facility] Medications Current Medications Medication Drug Class(es) [...] Refills(s) 0 Start Date: 02/04/19 Status: Ordered Repeat number: 1 Comment on above: Take 81 mg by mouth once daily. atorvastatin 40 mg oral tablet (20 sources) HMG-CoA Reductase Inhibitor Start: take 1 tablet by mouth once daily in the evening Atorvastatin 40 mg tablet Active 0 .ROUTE .COMPLEX 90 September 01, 2024 8:43am TAKE 1 TABLET BY MOUTH ONCE EVERY EVENING Start: 09-06-2023 End: 09-08-2023 take 1 tablet by mouth once daily in the evening Atorvastatin 40 mg tablet Discontinued 0 .ROUTE .COMPLEX 90 September 06, 2023 8:32am September 08, 2023 2:51pm TAKE 1 TABLET BY MOUTH ONCE EVERY EVENING Start: 04-17-2023 End: 09-01-2024 take 1 tablet by mouth once daily Atorvastatin 40 mg tablet Discontinued 40 MG PO Daily September 08, 2023 2:49pm September 01, 2024 8:43am Start: 02-04-2019 take 1 tablet by anupama [...] Refills(s) 0 Start Date: 05/13/22 Status: Ordered Repeat number: 1 Start: 10-28-2021 End: 04-27-2023 take 2 tablets [...] Refills(s) 0 Start Date: 05/14/21 Status: Ordered Repeat number: 1 Start: 05-14-2021 glimepiride Or al, Daily, Refills(s) 0 Start Date: 05/14/21 Status: Ordered Comment on above: TAKE 1/2 TABLET BY M OUTH DAILY 30 MINUTES PRIOR TO BREAKFAST Take 0.5 mg by mouth once daily. hydroCHLOROthiazide 12.5 mg / lisinopril 20 mg oral tablet (20 sources) Thiazide Diuretic, Angiotensin Converting Enzyme Inhibitor Start: 4 take 1 tablet by mouth once daily Lisinopril-Hyd rochlorothiazi de 20-12.5 mg tablet Active 0 .ROUTE .COMPLEX 90 October 12, 2023 8:34am TAKE 1 TABLET BY MOUTH EVERY DAY Start: 02-04-2019 End: 10-12-2023 take 1 tablet by mouth once daily hydrochlorothiazide-lisinopril 12.5 mg-2 0 mg Tab 1 tab(s), Oral, Daily, Refill(s) 0 Start Date: 02/04/19 Status: Ordered Repeat number: 1 take 1 tablet by anupama th in the morning lisinopril-hydroCHLOROthiazide 20-12.5 M G tablet Take 1 tablet by mouth in the morning. Active take 1 tablet by anupama th once daily Lisinopril-hydroCHLOROthiazide 20-12.5 M G TAKE 1 TABLET BY MOUTH EVERY DAY Active Comment on above: Take 1 tablet by anupama th once daily. metFORMIN hydrochloride 500 mg oral tablet (20 sources) Biguanide Start: 5 take 2 tablets by mouth once daily [...] Start: 08-17-2021 take 2 tablets by mo [facility] once daily at mealtime metFORMIN (GLUCOPHAGE) 500 mg tablet TAKE 2 TABLETS BY MOUTH ONCE A DAY WITH FOOD 0 08/17/2021 Active Start: 05-14-2021 take 1 mg by mouth twice daily metformin 1000 mg oral tablet mg tab(s), Oral, BID, Refills(s) 0 Start Date: 05/14/21 Status: Ordered Repeat number: 1 take 1 tablet by anupama th at mealtime, then take 1 tablet by mouth every twenty-four hours metFORMIN, OSM, (Fortamet) 500 MG 24 hr tablet Take 500 mg by mouth in the evening. Take with meals Do not crush, chew, or split. Active metFORMIN HCl 50 0 MG 1 tablet with a meal Active Comment on above: TAKE 2 TABLETS BY MO [facility] ONCE A DAY WITH FOOD Take 1,000 mg by anupama th once daily. metoprolol tartrate 25 mg oral tablet (20 sources) beta-Adrenergic Georgina Start: 12-04-2023 take 1 tablet by mouth twice daily Metoprolol Tartrate 25 mg tablet Active 0 .ROUTE .COMPLEX 180 December 04, 2023 12:04pm TAKE 1 TABLET BY MOUTH TWICE A DAY Start: 12-04-2023 take 1 tablet by anupama twice daily Metoprolol Tartrate Active 0 .ROUTE [...] Refills(s) 0 Start Date: 02/04/19 Status: Ordered Repeat number: 1 take 1 tablet by anupama th every [...] by mouth twice daily. Take by mouth. Gjdzlzuqyhmtg-Hnyibpry-Yovwp n (MULTIVITAMIN 50 PLUS) tab (20 sources) [...] for 7 days Jul, Active Vitamin D3 (6 sources) Start: 06-22-2020 Vitamin D3 Start Date: 06/22/20 Status: Ordered Repeat number: 1 Start: 06-22-2020 Vitamin D3 Sta rt Date: 06/22/20 Status: Ordered Completed/Discontinued Medications Medication [...] on above: ibuprofen 800 mg tab let ipratropium bromide 0.042 mg/actuat metered dose nasal spray (18 sources) Anticholinergic Start: 10-20-19 ipratropium Nasal 0.06% [place] Refill(s) 0 Start Date: 10/20/23 Status: Ordered Repeat number: 1 Start: 06-05-2023 End: 06-04-2024 take 2 spray(s) [...] 06/04/2024 Active Comment on above: 2 Sprays. iv contrast (will be provided with radiology [...] 0.4 mg oral capsule (2 sources) alpha-Adrenergic Georgina tamsulosin (FLOMAX) 0.4 mg q 24 HR. 0 Active Comment on above: q 24 HR. triamcinolone acetonide 40 mg/ml injectable suspension (20 sources) Corticosteroid Start: 09-17-19 23 Kenalog-40 30 Feb, 2023 40 mg Problems Active Problems Problem Classification Problem Date Documented Da te Episodic/Chronic Abdominal pain (3 sources) Right upper quadrant pain; Translations: [Lower abdominal pain, unspecified] Episodic Calculus of urinary tract (11 sources) History of calculus of kidney; Translations: [Personal history of urinary calculi] Onset: 04-17-2023 Episodic Cancer of prostate (20 sources) Malignant tumor of prostate; Translations: [Malignant neoplasm of prostate] Onset: 07-02-2014 08-06-2014 Chronic Comment on above: S/p Radical prostate ctomy 10/2014 and EBRT 2017 Dx: 2015, s/p radica l prostatectomy, ADT, EBRT, chemotherapy Cancer of prostate (8 sources) History of malignant neoplasm of prostate; Translations: [Personal history of malignant neoplasm of prostate] Onset: 04-14-2023 12-23-2019 Episodic Complication of device; implant or graft (2 sources) Atherosclerosis of coronary artery bypass graft(s) without angina pectoris; Translations: [Atherosclerosis of coronary artery bypass graft(s) without angina pectoris] Onset: 03-20-2025 Chronic Conduction disorders (18 sources) Left bundle branch block; Translations: [Other left bundle branch block] Onset: 08-25-2014 Chronic Coronary atherosclerosis and other heart disease (20 sources) Coronary arteriosclerosis; Translations: [Atherosclerotic heart disease of [place] coronary artery without angina pectoris] Onset: 10-10-2014 [...] of lipid metabolism (20 sources) Hyperlipidemia; Translations: [Hypercholesterolemia ] Onset: [birth year]17-1958 01-01-2019 Chronic Essential hypertension (20 sources) Hypertensive disorder; Translations: [Essential hypertension] Onset: 06-01-2023 Resolved: 06-01-2023 01-01-2019 Chronic Genitourinary symptoms and ill-defined conditions (17 sources) Microscopic hematuria; Translations: [Nocturia] Onset: 04-14-2023 01-01-2019 Episodic Heart valve disorders (20 sources) Aortic stenosis, non-rheumatic ; Translations: [Nonrheumatic aortic (valve) stenosis] Onset: 07-17-2014 Chronic Comment on above: Echo: ROGER 1.13, [place] 324, 04/2022Echo: ROGER 1.3, Velocity 280, gradient 06/2023 [...] conditions (not mental disorders or infectious disease) (17 sources) Raised prostate specific antigen; Translations: [Rising [...] Reference Range Facility Ambulatory Visit Summaryon 0 03-31-2025 Ambulatory Visit Summary Ambulatory Visit Summary PABLO FELIX :1945 Visit Date:03/31/2025 Ambulatory Visit Instructions Your Diagnosis Rising PSA following treatment for malignant neoplasm of prostate Prostate cancer Microscopic hematuria Kidney stones Your Care Team Attending Physician - Anthony SCRUGGS MD Primary Care Physician - JUAN DAVID SEGUNDO, JAMAR This Is Your Medications List Contact prescribing physician if questions or concerns aspirin (aspirin 81 mg oral tablet) atorvastatin (atorvastatin 40 mg Tab) cholecalciferol (Vitamin D3) enzalutamide (Xtandi 80 mg oral tablet) glimepiride hydrochlorothiazide-lisinop ril (hydrochlorothiazide-lisino pril 12.5 mg-20 mg Tab) ipratropium nasal (ipratropium Nasal 0.06% [place]) metformin (metformin 1000 mg oral tablet) metoprolol (metoprolol 25 mg ER Tab) Procedures Performed Carpal tunnel release (2023), External beam radiotherapy (03/30/2018), Cystoscopy (10/20/2015), Radical prostatectomy (11/05/2014), 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 Discharge Vitals Temperature (Temporal Artery) 37 ???C Heart Rate (Peripheral) 49 Respiratory Rate 16 Blood Pressure 128/63 Height 167 cm Height 66 in Weight 92.3 kg Weight 203.486 lb BMI 33.1 What to do next Scheduled Follow-Up Appointments Monday2025 9:30 AM EDT With: Where: [facility] [address] [place] [address]- Monday2025 11:15 AM EDT With: Anthony SCRUGGS MD Where: [facility] [address] [place] [address]- You Need to Schedule the Following Appointments Follow Up with KAEL JAMES, Anthony Lee, URL When: Comments: 6 mos w/ PSA, Lupron Where: [address] [place] [address] Medications What How Much When Instructions Unchanged [...] concerns Unchanged ipratropium nasal (ipratropium Nasal 0.06% [place]) Contact prescribing physician if questions or concerns [...] injection, extended release, 45 mg, IntraMuscular. For: Allergies penicillin G benzathine (Unknown) Problems Ongoing [...] of surgery or radiation. ??? Before radiation t (more content not included)... Normal [facility] Urology Office/Clinic Noteon 03-31-2025 Urology Office/Clinic Note Urology Office/Clinic Note Chief Complaint 6 monnth with PSA and Lupron HPI Staff Pt is a 80 year old male here for a 6 month follow with PSA and Lupron injection Previous DX: Rising PSA following Tx for Prostate Cancer, Prostate Cancer, Microscopic Hematuria, Kidney Stones 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 *Xtandi 160mg QD and Xgeva q3m. PSA: 04/12/24 - 0.23 09/30/24 - 0.27 03/24/25 - 0.42 IPSS score today is 3. Denies all urinary concerns at this time. History of Present Illness Tests reviewed: reviewed UA, PSA I have reviewed the previous health record information and history for this patient from Dr. Hughes and Dr. Scruggs. I have reviewed and verified [...] & Measurements T: 37 ???C(Temporal Artery) HR: 49(Peripheral) RR: 16 BP: 128/63 HT: 66 in HT: 167 cm WT: 203.486 lb WT: 92.3 kg BMI: 33.1 General Appearance: alert, no distress, well nourished, [...] 0.15 04/12/24 - 0.23 09/30/24 - 0.27 02/13/25 - 0.26 03/24/25 - 0.42 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 [place] 9 (5+4), pT2b, N0, Mo. Restarted Lupron 04/19/24, prior to that was 04/2022. Last Lupron given 10/07/24. Last saw onc 02/20/25 - Xgeva inj given, cont Xtandi and Lupron per our office. Plan was to consider PSMA scan if PSA reaches 0.5 and adjust tx to [place] if PSA continues to rise. PSA increased from prior. Taking Xtandi 160mg qd and Xgeva q3mos. Lupron 45 mgIM injection given today with no complications. Right glute. Pt. denies side effects at this time. IPSS 3, no bother with urination. -F/u in 6 mos w/ PSA, Lupron -Cont Xtandi 160mg qd and Xgeva q3mos, vit D and Ca - 2. Prostate cancer (C61: Malignant neoplasm of prostate) See #1. 3. Microscopic hematuria (R31.29: Other microscopic hematuria) S/p Cysto 08/21/15. Chronic, likely due to radiation. UA shows small blood. Denies gross hematuria. 4. Kidney stones (N20.0: Calculus of kidney) KUB 04/21/23 neg for obvious stones. KUB 10/09/23 shows probable punctate calculi over the right renal region. [1] Follow-up With When Contact Information KAEL JAMES, Anthony Lee, URL [address] [address] [place] [address] Additional Instructions: 6 mos w/ PSA, Lupron Patient Education Hormone Suppression Therapy for Prostate Cancer IJeanine, personally scribed for Dr. Scruggs on 03/31/2025 10:34:15. . Documentation recorded by the scribe, Jeanine Crandall, accurately reflects the services(s) I performed and decisions made by me. Authenticated by Dr. Scruggs on 03/31/2025 10:40:31. Problem List/Past Medical History Ongoing CAD (coronary [...] 1 tab(s), Oral, Daily ipratropium Nasal 0.06% [place] metformin 1000 mg oral tablet, Oral, BID metoprolol 25 mg ER Tab, 25 mg= 1 tab(s), Oral, BID Vitamin D3 Xtandi 80 mg oral tablet, Oral, Daily Allergies penicillin G benzathine (Unknown) Social History Alcohol Current. Liquor. 1-2 times per year., 10/03/2024 Substance Abuse Never., 10/03/2024 Tobacco Never (less than 100 in lifetime) Tobacco Use:. Never Smokeless Tobacco Use:. Household tobacco concerns: No., (more content not included)... Normal [facility] Comment on above: Result Comment: Elec tronically Signed By: Anthony SCRUGGS MD\.br\Date and Time Signed: 03/31/25 10:40 EDT\.br\Electronically Co-Signed By: Jeanine Crandall\.br\Date and Time Co-Signed: 03/31/25 10:35 EDT Office Visiton 03-20-2025 Follow-up visit [id number] Pablo Felix 1945 M Date Provider Department Center 03/20/2025 166-ANIRUDH CACERES [facility] Family History Problem Relation Age of Onset Coronary artery disease Father Family Status - Relation Status Age at Father Level of Service:33289 ID OFFICE/OUTPATIENT ESTABLISHED MOD MDM 30 MIN Reason for Visit and Comments: Coronary Artery Disease [187] - Denies chest pain and SOB. No recent testing. Valve Disorder [7002] - Denies lightheadedness and palpitations. Hypertension [717765] - Had labs in January 2025. Hyperlipidemia [182] - No [facility]. Normal [facility] No Panel Informationon 02-25 [facility] CNOVSPon 02-20-2025 CNOVSP Visit (SP) Office (H EMASA) PABLO FELIX ([id number]) 1945 M Date Time Provider Department 02/20/25 10:20 AM SAUL TRACEY During your visit today, we recorded the following information about you: Temperature Pulse Respiration Blood pressure 97.6 degrees 60/minute 16/minute 130/84 Weight 91.4 kg Saul Tracey MD 02/20/2025 10:48 AM Signed NAME: Pablo Felix CLINIC NO.: [id number] DATE OF SERVICE: February 20, 2025 (Denice) Some elements in this clinic note that are critical to medical decision making have been carefully reviewed and included from a prior clinic note dated: 11/07/2024 (Dheeraj) Referring Provider: RADHA Additional Clinicians involved in Pablo Felix's care: Dr. Jamar Fall, Dr. Anthony Scruggs, Dr. Khan, [facility] Cardiology DIAGNOSIS: Metastatic prostate cancer CASE SUMMARY / ASSESSMENT: 80 year old man with. 1. Metastatic prostate cancer (HCC) - ICD9: 185, ICD10: C61 (primary diagnosis) The patient was diagnosed with early-stage high-grade prostate cancer in June 2014 (TRUS biopsy 07/02/2014). He underwent a radical prostatectomy on 11/05/2014. Pathology consistent with stage IIIC (pT2b, N0, M0), [place] 5+4 equal 9. Postop the patient's PSA [...] continue Lupron every [address] Scurggs, next injection due 03/31/2025. For bone metastasis he will continue with Xgeva every 3 months. Injection today. Return in 3 months for follow-up. If the patient's PSA continues to increase will consider staging with a PSMA PET scan. If significant disease progression will then discuss options for alternative therapy. 2. Coronary artery disease - ICD9: 414.01, ICD10: I25.10 Status post CABG 08/17/2014 ([facility]). Stable on current medications. Continue per [...] normal. Ane (more content not included)... Normal [facility] CBC W Auto Differential pane l (Bld)on 2025 Basophils (Bld) [#/Vol] 0.03 10*3/uL Normal <0.11 [facility] Comment on above: Order Comment: Speci men Type: BLOOD SPECIMEN Ordering Facility: [facility] Address: [address] [place] [address] Performed By: #### 2 857-1 #### [facility] CLIA [id number] [address] [place] [address] [place] Basophils/100 WBC (Bld) 0.4 % Normal [facility] Comment on above: Order Comment: Speci men Type: BLOOD SPECIMEN Ordering Facility: [facility] Address: [address] [place] [address] Performed By: #### 2 857-1 #### [facility] CLIA [id number] [address] [place] [address] [place] Differential cell count method Nom (Bld) Auto Normal [facility] Comment on above: Order Comment: Speci men Type: BLOOD SPECIMEN Ordering Facility: [facility] Address: [address] [place] [address] Performed By: #### 2 857-1 #### [facility] CLIA [id number] [address] [place] [address] [place] Eosinophils (Bld) [#/Vol] 0.53 10*3/uL High <0.46 [facility] Comment on above: Order Comment: Speci men Type: BLOOD SPECIMEN Ordering Facility: [facility] Address: [address] [place] [address] Performed By: #### 2 857-1 #### [facility] CLIA [id number] [address] [place] [address] [place] Eosinophils/100 WBC (Bld) 7.5 % Normal [facility] Comment on above: Order Comment: Speci men Type: BLOOD SPECIMEN Ordering Facility: [facility] Address: [address] [place] [address] Performed By: #### 2 857-1 #### [facility] CLIA [id number] [address] [place] [address] [place] Erythrocyte distribution width (RBC) [Ratio] 12.7 % Normal 11.5-15.0 [facility] Comment on above: Order Comment: Speci men Type: BLOOD SPECIMEN Ordering Facility: [facility] Address: [address] [place] [address] Performed By: #### 2 857-1 #### [facility] CLIA [id number] [address] [place] [address] [place] Hematocrit (Bld) [Volume fraction] 35.3 % Low 39.0-51.0 [facility] Comment on above: Order Comment: Speci men Type: BLOOD SPECIMEN Ordering Facility: [facility] Address: [address] [place] [address] Performed By: #### 2 857-1 #### [facility] CLIA [id number] [address] [place] [address] [place] Hemoglobin (Bld) [Mass/Vol] 12.0 g/dL Low 13.0-17.0 [facility] Comment on above: Order Comment: Speci men Type: BLOOD SPECIMEN Ordering Facility: [facility] Address: [address] [place] [address] Performed By: #### 2 857-1 #### [facility] CLIA [id number] [address] [place] [address] [place] Immature granulocytes (Bld) [#/Vol] 0.06 10*3/uL Normal <0.10 [facility] Comment on above: Order Comment: Speci men Type: BLOOD SPECIMEN Ordering Facility: [facility] Address: [address] [place] [address] Performed By: #### 2 857-1 #### [facility] CLIA [id number] [address] [place] [address] [place] Immature granulocytes/100 WBC (Bld) 0.8 % Normal [facility] Comment on above: Order Comment: Speci men Type: BLOOD SPECIMEN Ordering Facility: [facility] Address: [address] [place] [address] Performed By: #### 2 857-1 #### [facility] CLIA [id number] [address] [place] [address] [place] Lymphocytes (Bld) [#/Vol] 2.09 10*3/uL Normal 1.00-4.00 [facility] Comment on above: Order Comment: Speci men Type: BLOOD SPECIMEN Ordering Facility: [facility] Address: [address] [place] [address] Performed By: #### 2 857-1 #### [facility] CLIA [id number] [address] [place] [address] [place] Lymphocytes/100 WBC (Bld) 29.5 % Normal [facility] Comment on above: Order Comment: Speci men Type: BLOOD SPECIMEN Ordering Facility: [facility] Address: [address] [place] [address] Performed By: #### 2 857-1 #### [facility] CLIA [id number] [address] [place] [address] [place] MCH (RBC) [Entitic mass] 32.5 pg Normal 26.0-34.0 [facility] Comment on above: Order Comment: Speci men Type: BLOOD SPECIMEN Ordering Facility: [facility] Address: [address] [place] [address] Performed By: #### 2 857-1 #### [facility] CLIA [id number] [address] [place] [address] [place] MCHC (RBC) [Mass/Vol] 34.0 g/dL Normal 30.5-36.0 [facility] Comment on above: Order Comment: Speci men Type: BLOOD SPECIMEN Ordering Facility: [facility] Address: [address] [place] [address] Performed By: #### 2 857-1 #### [facility] CLIA [id number] [address] [place] [address] [place] MCV (RBC) [Entitic vol] 95.7 fL Normal 80.0-100.0 [facility] Comment on above: Order Comment: Speci men Type: BLOOD SPECIMEN Ordering Facility: [facility] Address: [address] [place] [address] Performed By: #### 2 857-1 #### [facility] CLIA [id number] [address] [place] [address] [place] Monocytes (Bld) [#/Vol] 0.68 10*3/uL Normal <0.87 [facility] Comment on above: Order Comment: Speci men Type: BLOOD SPECIMEN Ordering Facility: [facility] Address: [address] [place] [address] Performed By: #### 2 857-1 #### [facility] CLIA [id number] [address] [place] [address] [place] Monocytes/100 WBC (Bld) 9.6 % Normal [facility] Comment on above: Order Comment: Speci men Type: BLOOD SPECIMEN Ordering Facility: [facility] Address: [address] [place] [address] Performed By: #### 2 857-1 #### [facility] CLIA [id number] [address] [place] [address] [place] Neutrophils (Bld) [#/Vol] 3.70 10*3/uL Normal 1.45-7.50 [facility] Comment on above: Order Comment: Speci men Type: BLOOD SPECIMEN Ordering Facility: [facility] Address: [address] [place] [address] Performed By: #### 2 857-1 #### [facility] CLIA [id number] [address] [place] [address] [place] Neutrophils/100 WBC (Bld) 52.2 % Normal [facility] Comment on above: Order Comment: Speci men Type: BLOOD SPECIMEN Ordering Facility: [facility] Address: [address] [place] [address] Performed By: #### 2 857-1 #### [facility] CLIA [id number] [address] [place] [address] [place] Nucleated RBC (Bld) [#/Vol] 10*3/uL Normal <0.01 [facility] Comment on above: Order Comment: Speci men Type: BLOOD SPECIMEN Ordering Facility: [facility] Address: [address] [place] [address] Performed By: #### 2 857-1 #### [facility] CLIA [id number] [address] [place] [address] [place] Nucleated RBC/100 WBC (Bld) [Ratio] 0.0 /100 WBC Normal [facility] Comment on above: Order Comment: Speci men Type: BLOOD SPECIMEN Ordering Facility: [facility] Address: [address] [place] [address] Performed By: #### 2 857-1 #### [facility] CLIA [id number] [address] [place] [address] [place] Platelet mean volume (Bld) [Entitic vol] 10.1 fL Normal 9.0-12.7 [facility] Comment on above: Order Comment: Speci men Type: BLOOD SPECIMEN Ordering Facility: [facility] Address: [address] [place] [address] Performed By: #### 2 857-1 #### [facility] CLIA [id number] [address] [place] [address] [place] Platelets (Bld) [#/Vol] 204 10*3/uL Normal 150-400 [facility] Comment on above: Order Comment: Speci men Type: BLOOD SPECIMEN Ordering Facility: [facility] Address: [address] [place] [address] Performed By: #### 2 857-1 #### [facility] CLIA [id number] [address] [place] [address] [place] RBC (Bld) [#/Vol] 3.69 10*6/uL Low 4.20-6.[address] [facility] Comment on above: Order Comment: Speci men Type: BLOOD SPECIMEN Ordering Facility: [facility] Address: [address] [place] [address] Performed By: #### 2 857-1 #### [facility] CLIA [id number] [address] [place] [address] [place] WBC (Bld) [#/Vol] 7.09 10*3/uL Normal 3.70-11.[address] [facility] Comment on above: Order Comment: Speci men Type: BLOOD SPECIMEN Ordering Facility: [facility] Address: [address] [place] [address] Performed By: #### 2 857-1 #### [facility] CLIA [id number] [address] [place] [address] [place] Comprehensive metabolic 2000 panelon 2025 Albumin [Mass/Vol] 4.2 g/dL Normal 3.9-4.9 [facility] Comment on above: Order Comment: Speci men Type: BLOOD SPECIMEN Ordering Facility: [facility] Address: [address] [place] [address] Performed By: #### 2 857-1 #### [facility] CLIA [id number] [address] [place] [address] [place] ALP [Catalytic activity/Vol] 73 U/L Normal 38-113 [facility] Comment on above: Order Comment: Speci men Type: BLOOD SPECIMEN Ordering Facility: [facility] Address: [address] [place] [address] Performed By: #### 2 857-1 #### [facility] CLIA [id number] [address] [place] [address] [place] ALT [Catalytic activity/Vol] 16 U/L Normal 10-54 [facility] Comment on above: Order Comment: Speci men Type: BLOOD SPECIMEN Ordering Facility: [facility] Address: [address] [place] [address] Performed By: #### 2 857-1 #### [facility] CLIA [id number] [address] [place] [address] [place] Anion gap [Moles/Vol] 10 mmol/L Normal 8-15 [facility] Comment on above: Order Comment: Speci men Type: BLOOD SPECIMEN Ordering Facility: [facility] Address: [address] [place] [address] Performed By: #### 2 857-1 #### [facility] CLIA [id number] [address] [place] [address] [place] AST [Catalytic activity/Vol] 17 U/L Normal 14-40 [facility] Comment on above: Order Comment: Speci men Type: BLOOD SPECIMEN Ordering Facility: [facility] Address: [address] [place] [address] Performed By: #### 2 857-1 #### [facility] CLIA [id number] [address] [place] [address] [place] Bilirubin [Mass/Vol] 0.6 mg/dL Normal 0.2-1.3 [facility] Comment on above: Order Comment: Speci men Type: BLOOD SPECIMEN Ordering Facility: [facility] Address: [address] [place] [address] Performed By: #### 2 857-1 #### [facility] CLIA [id number] [address] [place] [address] [place] Calcium [Mass/Vol] 9.3 mg/dL Normal 8.5-10.2 [facility] Comment on above: Order Comment: Speci men Type: BLOOD SPECIMEN Ordering Facility: [facility] Address: [address] [place] [address] Performed By: #### 2 857-1 #### [facility] CLIA [id number] [address] [place] [address] [place] Chloride [Moles/Vol] 101 mmol/L Normal 98-107 [facility] Comment on above: Order Comment: Speci men Type: BLOOD SPECIMEN Ordering Facility: [facility] Address: [address] [place] [address] Performed By: #### 2 857-1 #### [facility] CLIA [id number] [address] [place] [address] [place] CO2 [Moles/Vol] 25 mmol/L Normal 22-30 [facility] Comment on above: Order Comment: Speci men Type: BLOOD SPECIMEN Ordering Facility: [facility] Address: [address] [place] [address] Performed By: #### 2 857-1 #### [facility] CLIA [id number] [address] [place] [address] [place] Creatinine [Mass/Vol] 0.68 mg/dL Low 0.73-1.22 [facility] Comment on above: Order Comment: Nicanor camilo Type: BLOOD SPECIMEN Ordering Facility: [facility] Address: [address] [place] [address] Performed By: #### 2 857-1 #### [facility] CLIA [id number] [address] [place] [address] [place] eGFRcr SerPlBld CKD-EPI 2020 95 mL/min/1.73m??? Normal >=60 [facility] Comment on above: Order Comment: Nicanor camilo Type: BLOOD SPECIMEN Ordering Facility: [facility] Address: [address] [place] [address] Result Comment: Renae mated Glomerular Filtration Rate [...] GFR. Performed By: #### 2 857-1 #### [facility] CLIA [id number] [address] [place] [address] [place] Glucose [Mass/Vol] 122 mg/dL High 74-99 [facility] Comment on above: Order Comment: Nicanor camilo Type: BLOOD SPECIMEN Ordering Facility: [facility] Address: [address] [place] [address] Result Comment: The [place] [employer] (ADA) provides guidance for cutoff [...] Standards of Medical Care in Diabetes 2016, [place] [employer]. Diabetes Care. 2016.39(Suppl 1). Performed By: #### 2 857-1 #### [facility] CLIA [id number] [address] [place] [address] [place] Potassium [Moles/Vol] 4.5 mmol/L Normal 3.7-5.1 [facility] Comment on above: Order Comment: Speci men Type: BLOOD SPECIMEN Ordering Facility: [facility] Address: [address] [place] [address] Performed By: #### 2 857-1 #### [facility] CLIA [id number] [address] [place] [address] [place] Protein [Mass/Vol] 6.4 g/dL Normal 6.3-8.0 [facility] Comment on above: Order Comment: Speci men Type: BLOOD SPECIMEN Ordering Facility: [facility] Address: [address] [place] [address] Performed By: #### 2 857-1 #### [facility] CLIA [id number] [address] [place] [address] [place] Sodium [Moles/Vol] 136 mmol/L Normal 136-144 [facility] Comment on above: Order Comment: Speci men Type: BLOOD SPECIMEN Ordering Facility: [facility] Address: [address] [place] [address] Performed By: #### 2 857-1 #### [facility] CLIA [id number] [address] [place], [place] [address] [place] Urea nitrogen [Mass/Vol] 14 mg/dL Normal 9-24 [facility] Comment on above: Order Comment: Speci men Type: BLOOD SPECIMEN Ordering Facility: [facility] Address: [address] [place], [place] [address] Performed By: #### 2 857-1 #### [facility] CLIA [id number] [address] [place] [address] [place] PSA SerPl-mCncon 2025 Prostate specific Ag [Mass/Vol] 0.26 ng/mL Normal <2.60 [facility] Comment on above: Order Comment: Speci men Type: BLOOD SPECIMEN Ordering Facility: [facility] Address: [address] [place] [address] Result Comment: Tota l PSA test methodology used is the Electrochemiluminescence Immunoassay by [employer]. Total PSA values by differing methodologies cannot be interchanged. Performed By: #### 2 857-1 #### [facility] CLIA [id number] [address] [place] [address] [place] CNOVSPon 11-07-2024 CNOVSP Visit (SP) Office (H EMASA) JERICAPABLO An ([id number]) 1945 M Date Time Provider Department 11/07/24 [...] PHYSICIANS: Dr. Anthony Scruggs, Dr. Khan, [facility] Cardiology Portions of this encounter note [...] mg 24 hr tablet Take by mouth. 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 Left base margin positive for neoplasm. Seminal vesicles with no diagnostic abnormality. 2 resected lymph nodes negative for neoplasm. LABS: Hemoglobin (g/dL) Date Value 10/31/2024 12.4 05/08/2018 12.8 Hem (more content not included)... Normal [facility] CBC W Auto Differential pane l (Bld)on 10-31-2024 Basophils (Bld) [#/Vol] 0.05 10*3/uL Normal <0.11 [facility] Comment on above: Order Comment: Speci men Type: BLOOD SPECIMEN Ordering Facility: [facility] Address: [address] [place] [address] Performed By: #### 5 7021-8 #### [facility] CLIA [id number] [address] [place] [address] Basophils/100 WBC (Bld) 0.7 % Normal [facility] Comment on above: Order Comment: Speci men Type: BLOOD SPECIMEN Ordering Facility: [facility] Address: [address] [place] [address] Performed By: #### 5 7021-8 #### [facility] CLIA [id number] [address] [place] [address] Differential cell count method Nom (Bld) Auto Normal [facility] Comment on above: Order Comment: Speci men Type: BLOOD SPECIMEN Ordering Facility: [facility] Address: [address] [place] [address] Performed By: #### 5 7021-8 #### [facility] CLIA [id number] [address] [place] [address] Eosinophils (Bld) [#/Vol] 0.51 10*3/uL High <0.46 [facility] Comment on above: Order Comment: Speci men Type: BLOOD SPECIMEN Ordering Facility: [facility] Address: [address] [place] [address] Performed By: #### 5 7021-8 #### [facility] CLIA [id number] [address] [place] [address] Eosinophils/100 WBC (Bld) 7.3 % Normal [facility] Comment on above: Order Comment: Speci men Type: BLOOD SPECIMEN Ordering Facility: [facility] Address: [address] [place] [address] Performed By: #### 5 7021-8 #### [facility] CLIA [id number] [address] [place] [address] Erythrocyte distribution width (RBC) [Ratio] 12.9 % Normal 11.5-15.0 [facility] Comment on above: Order Comment: Speci men Type: BLOOD SPECIMEN Ordering Facility: [facility] Address: [address] [place] [address] Performed By: #### 5 7021-8 #### [facility] CLIA [id number] [address] [place] [address] Hematocrit (Bld) [Volume fraction] 36.0 % Low 39.0-51.0 [facility] Comment on above: Order Comment: Speci men Type: BLOOD SPECIMEN Ordering Facility: [facility] Address: [address] [place] [address] Performed By: #### 5 7021-8 #### [facility] CLIA [id number] [address] [place] [address] Hemoglobin (Bld) [Mass/Vol] 12.4 g/dL Low 13.0-17.0 [facility] Comment on above: Order Comment: Speci men Type: BLOOD SPECIMEN Ordering Facility: [facility] Address: [address] [place] [address] Performed By: #### 5 7021-8 #### [facility] CLIA [id number] [address] [place] [address]679 Immature granulocytes (Bld) [#/Vol] 0.04 10*3/uL Normal <0.10 [facility] Comment on above: Order Comment: Speci men Type: BLOOD SPECIMEN Ordering Facility: [facility] Address: [address] [place] [address] Performed By: #### 5 7021-8 #### [facility] CLIA [id number] [address] [place] [address] Immature granulocytes/100 WBC (Bld) 0.6 % Normal [facility] Comment on above: Order Comment: Speci men Type: BLOOD SPECIMEN Ordering Facility: [facility] Address: [address] [place] [address] Performed By: #### 5 7021-8 #### [facility] CLIA [id number] [address] [place] [address]35 Lymphocytes (Bld) [#/Vol] 1.80 10*3/uL Normal 1.00-4.00 [facility] Comment on above: Order Comment: Speci men Type: BLOOD SPECIMEN Ordering Facility: [facility] Address: [address] [place] [address] Performed By: #### 5 7021-8 #### [facility] CLIA [id number] [address] [place] [address] 11804 Lymphocytes/100 WBC (Bld) 25.8 % Normal [facility] Comment on above: Order Comment: Speci men Type: BLOOD SPECIMEN Ordering Facility: [facility] Address: [address] [place] [address] Performed By: #### 5 7021-8 #### [facility] CLIA [id number] [address] [place] [address] 45775 MCH (RBC) [Entitic mass] 32.2 pg Normal 26.0-34.0 [facility] Comment on above: Order Comment: Speci men Type: BLOOD SPECIMEN Ordering Facility: [facility] Address: [address] [place] [address] Performed By: #### 5 7021-8 #### [facility] CLIA [id number] [address] [place] [address] 35842 MCHC (RBC) [Mass/Vol] 34.4 g/dL Normal 30.5-36.0 [facility] Comment on above: Order Comment: Speci men Type: BLOOD SPECIMEN Ordering Facility: [facility] Address: [address] [place] [address] Performed By: #### 5 7021-8 #### [facility] CLIA [id number] [address] [place] [address]23 MCV (RBC) [Entitic vol] 93.5 fL Normal 80.0-100.0 [facility] Comment on above: Order Comment: Speci men Type: BLOOD SPECIMEN Ordering Facility: [facility] Address: [address] [place] [address] Performed By: #### 5 7021-8 #### [facility] CLIA [id number] [address] [place] [address]3953 Monocytes (Bld) [#/Vol] 0.69 10*3/uL Normal <0.87 [facility] Comment on above: Order Comment: Speci men Type: BLOOD SPECIMEN Ordering Facility: [facility] Address: [facility] [place] [id number] Performed By: #### 5 7021-8 #### [facility] CLIA [id number] [address] [place] [address]9923 Monocytes/100 WBC (Bld) 9.9 % Normal [facility] Comment on above: Order Comment: Speci men Type: BLOOD SPECIMEN Ordering Facility: [facility] Address: [address] [place], [place] [address] Performed By: #### 5 7021-8 #### [facility] CLIA [id number] [address] [place] [address] Neutrophils (Bld) [#/Vol] 3.90 10*3/uL Normal 1.45-7.50 [facility] Comment on above: Order Comment: Speci men Type: BLOOD SPECIMEN Ordering Facility: [facility] Address: [address] [place], [place] [address] Performed By: #### 5 7021-8 #### [facility] CLIA [id number] [address] [place] [address]440 Neutrophils/100 WBC (Bld) 55.7 % Normal [facility] Comment on above: Order Comment: Speci men Type: BLOOD SPECIMEN Ordering Facility: [facility] Address: [address] [place] [address] Performed By: #### 5 7021-8 #### [facility] CLIA [id number] [address] [place] [address]6810 Nucleated RBC (Bld) [#/Vol] 10*3/uL Normal <0.01 [facility] Comment on above: Order Comment: Speci men Type: BLOOD SPECIMEN Ordering Facility: [facility] Address: [address] [place] [address] Performed By: #### 5 7021-8 #### [facility] CLIA [id number] [address] [place] [address] Nucleated RBC/100 WBC (Bld) [Ratio] 0.0 /100 WBC Normal [facility] Comment on above: Order Comment: Speci men Type: BLOOD SPECIMEN Ordering Facility: [facility] Address: [address] [place] [address] Performed By: #### 5 7021-8 #### [facility] CLIA [id number] [address] [place] [address]4314 Platelet mean volume (Bld) [Entitic vol] 9.8 fL Normal 9.0-12.7 [facility] Comment on above: Order Comment: Speci men Type: BLOOD SPECIMEN Ordering Facility: [facility] Address: [address] [place] [address] Performed By: #### 5 7021-8 #### [facility] CLIA [id number] [address] [place] [address]1051 Platelets (Bld) [#/Vol] 204 10*3/uL Normal 150-400 [facility] Comment on above: Order Comment: Speci men Type: BLOOD SPECIMEN Ordering Facility: [facility] Address: [address] [place] [address] Performed By: #### 5 7021-8 #### [facility] CLIA [id number] [address] [place] [address] 10593 RBC (Bld) [#/Vol] 3.85 10*6/uL Low 4.20-6.[address] [facility] Comment on above: Order Comment: Speci men Type: BLOOD SPECIMEN Ordering Facility: [facility] Address: [address] [place] [address] Performed By: #### 5 7021-8 #### [facility] CLIA [id number] [address] [place] [address] 22811 WBC (Bld) [#/Vol] 6.99 10*3/uL Normal 3.70-11.[address] [facility] Comment on above: Order Comment: Speci men Type: BLOOD SPECIMEN Ordering Facility: [facility] Address: [address] [place], [place] [address] Performed By: #### 5 7021-8 #### [facility] CLIA [id number] [address] [place] [address] 14259 Comprehensive metabolic 2000 panelon 10-31-2024 Albumin [Mass/Vol] 4.1 g/dL Normal 3.9-4.9 [facility] Comment on above: Order Comment: Speci men Type: BLOOD SPECIMEN Ordering Facility: [facility] Address: [address] [place] [address] Performed By: #### 2 857-1 #### [facility] CLIA [id number] [address] [place] [address] [place] ALP [Catalytic activity/Vol] 84 U/L Normal 38-113 [facility] Comment on above: Order Comment: Speci men Type: BLOOD SPECIMEN Ordering Facility: [facility] Address: [address] [place] [address] Performed By: #### 2 857-1 #### [facility] CLIA [id number] [address] [place] [address] [place] ALT [Catalytic activity/Vol] 18 U/L Normal 10-54 [facility] Comment on above: Order Comment: Speci men Type: BLOOD SPECIMEN Ordering Facility: [facility] Address: [address] [place] [address] Performed By: #### 2 857-1 #### [facility] CLIA [id number] [address] [place] [address] [place] Anion gap [Moles/Vol] 12 mmol/L Normal 8-15 [facility] Comment on above: Order Comment: Speci men Type: BLOOD SPECIMEN Ordering Facility: [facility] Address: [address] [place] [address] Performed By: #### 2 857-1 #### [facility] CLIA [id number] [address] [place] [address] [place] AST [Catalytic activity/Vol] 18 U/L Normal 14-40 [facility] Comment on above: Order Comment: Speci men Type: BLOOD SPECIMEN Ordering Facility: [facility] Address: [address] [place] [address] Performed By: #### 2 857-1 #### [facility] CLIA [id number] [address] [place] [address] [place] Bilirubin [Mass/Vol] 0.5 mg/dL Normal 0.2-1.3 [facility] Comment on above: Order Comment: Speci men Type: BLOOD SPECIMEN Ordering Facility: [facility] Address: [address] [place] [address] Performed By: #### 2 857-1 #### [facility] CLIA [id number] [address] [place] [address] [place] Calcium [Mass/Vol] 10.1 mg/dL Normal 8.5-10.2 [facility] Comment on above: Order Comment: Speci men Type: BLOOD SPECIMEN Ordering Facility: [facility] Address: [address] [place] [address] Performed By: #### 2 857-1 #### [facility] CLIA [id number] [address] [place] [address] [place] Chloride [Moles/Vol] 101 mmol/L Normal 98-107 [facility] Comment on above: Order Comment: Speci men Type: BLOOD SPECIMEN Ordering Facility: [facility] Address: [address] [place] [address] Performed By: #### 2 857-1 #### [facility] CLIA [id number] [address] [place] [address] [place] CO2 [Moles/Vol] 24 mmol/L Normal 22-30 [facility] Comment on above: Order Comment: Speci men Type: BLOOD SPECIMEN Ordering Facility: [facility] Address: [address] [place] [address] Performed By: #### 2 857-1 #### [facility] CLIA [id number] [address] [place] [address] [place] Creatinine [Mass/Vol] 0.88 mg/dL Normal 0.73-1.22 [facility] Comment on above: Order Comment: Nicanor camilo Type: BLOOD SPECIMEN Ordering Facility: [facility] Address: [address] [place] [address] Performed By: #### 2 857-1 #### [facility] CLIA [id number] [address] [place] [address] [place] Creatinine and Glomerular filtration rate.predicted panel (S/P/Bld) 88 mL/min/1.73m??? Normal >=60 [facility] Comment on above: Order Comment: Nicanor camilo Type: BLOOD SPECIMEN Ordering Facility: [facility] Address: [address] [place] [address] Result Comment: Renae mated Glomerular Filtration Rate [...] GFR. Performed By: #### 2 857-1 #### [facility] CLIA [id number] [address] [place] [address] [place] Glucose [Mass/Vol] 123 mg/dL High 74-99 [facility] Comment on above: Order Comment: Francii men Type: BLOOD SPECIMEN Ordering Facility: [facility] Address: [address] [place] [address] Result Comment: The [place] Diabetes Association (ADA) provides guidance for cutoff [...] Standards of Medical Care in Diabetes 2016, [place] [employer]. Diabetes Care. 2016.39(Suppl 1). Performed By: #### 2 857-1 #### [facility] CLIA [id number] [address] [place] [address] [place] Potassium [Moles/Vol] 4.6 mmol/L Normal 3.7-5.1 [facility] Comment on above: Order Comment: Speci men Type: BLOOD SPECIMEN Ordering Facility: [facility] Address: [address] [place] [address] Performed By: #### 2 857-1 #### [facility] CLIA [id number] [address] [place] [address] [place] Protein [Mass/Vol] 6.5 g/dL Normal 6.3-8.0 [facility] Comment on above: Order Comment: Speci men Type: BLOOD SPECIMEN Ordering Facility: [facility] Address: [address] [place] [address] Performed By: #### 2 857-1 #### [facility] CLIA [id number] [address] [place] [address] [place] Sodium [Moles/Vol] 137 mmol/L Normal 136-144 [facility] Comment on above: Order Comment: Speci men Type: BLOOD SPECIMEN Ordering Facility: [facility] Address: [address] [place] [address] Performed By: #### 2 857-1 #### [facility] CLIA [id number] [address] [place] [address] [place] Urea nitrogen [Mass/Vol] 16 mg/dL Normal 9-24 [facility] Comment on above: Order Comment: Speci men Type: BLOOD SPECIMEN Ordering Facility: [facility] Address: [address] [place] [address] Performed By: #### 2 857-1 #### [facility] CLIA [id number] [address] [place] [address] [place] PSA SerPl-mCncon 10-31-2024 Prostate specific Ag [Mass/Vol] 0.22 ng/mL Normal <2.60 [facility] Comment on above: Order Comment: Speci men Type: BLOOD SPECIMEN Ordering Facility: [facility] Address: [address] [place] [address] Result Comment: Tota l PSA test methodology used is the Electrochemiluminescence Immunoassay by [employer]. Total PSA values by differing methodologies cannot be interchanged. Performed By: #### 2 857-1 #### [facility] CLIA [id number] [address] [place] [address] [place] Ambulatory Visit Summaryon 0 [...] mg Tab) ipratropium nasal (ipratropium Nasal 0.06% T[place]) metformin (metformin 1000 mg oral tablet) metoprolol [...] Anthony SCRUGGS MD Where: [facility] [place] [address] [place] [address]- You Need to Schedule the Following Appointments Follow Up with Anthony SCRUGGS MD, URL When: Comments: 6 mos w/ PSA and Lupron Where: [facility] [address], [place] [address]- [phone] Medications What How Much When Instructions Unchanged [...] concerns Unchanged ipratropium nasal (ipratropium Nasal 0.06% [place]) Contact prescribing physician if questions or concerns [...] prostate cancer (more content not included)... Normal [facility] Urology Office/Clinic Noteon 10-07-2024 Urology Office/Clinic Note [...] Anthony Lee, URL [facility] [address] [place] [address] [phone] Additional Instructions: 6 mos w/ PSA and [...] 1 tab(s), Oral, Daily ipratropium Nasal 0.06% [place] metformin 1000 mg oral tablet, Oral, BID [...] virus vacc (more content not included)... Normal [facility] Comment on above: Result Comment: Elec tronically Signed By: Anthony SCRUGGS MD\.br\Date and Time Signed: 10/07/24 10:00 EDT\.br\Electronically Co-Signed By: Jeanine Crandall\.br\Date and Time Co-Signed: 10/07/24 09:59 EDT [facility]OVSPon 08-08-2024 [facility] Visit (SP) Office ( [facility]) PABLO FELIX ([id number]) 1945 M Date Time Provider Department 08/08/24 [...] PHYSICIANS: Dr. Anthony Scruggs, Dr. Khan, [facility] Cardiology Portions of this encounter note [...] mg 24 hr tablet Take by mouth. 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 Left base margin positive for neoplasm. Seminal vesicles with no diagnostic abnormality. 2 resected lymph nodes negative for neoplasm. LABS: Hemoglobin (g/dL) Date Value 08/01/2024 12.2 05/08/2018 12.8 Hematoc (more content not included)... Normal [facility] Basophils Auto (Bld) [#/Vol] on 08-01-2024 Basophils (Bld) [#/Vol] Automated basophil count <0.11 [facility] Basophils/100 WBC Auto (Bld) on 08-01-2024 Basophils/100 WBC (Bld) Automated basophil % [facility] Blood manual differential co mment interpretation narrativeon 08-01-2024 Manual differential comment [place] (Bld) [Interp] Blood manual differential comment interpretation narrative [facility] CBC W Auto Differential pane l (Bld)on 08-01-2024 Basophils (Bld) [#/Vol] 0.03 10*3/uL [facility] Basophils/100 WBC (Bld) 0.5 % [facility] Differential cell count method Nom (Bld) Auto [facility] Eosinophils (Bld) [#/Vol] 0.5 10*3/uL High [facility] Eosinophils/100 WBC (Bld) 8.5 % [facility] Erythrocyte distribution width (RBC) [Ratio] 12.7 % 11.5 - 15.0 % [facility] Hematocrit (Bld) [Volume fraction] 35.7 % Low 39.0 - 51.0 % [facility] Hemoglobin (Bld) [Mass/Vol] 12.2 g/dL Low 13.0 - 17.0 g/dL [facility] Immature granulocytes (Bld) [#/Vol] 0.04 10*3/uL [facility] Immature granulocytes/100 WBC (Bld) 0.7 % [facility] Interpretation and review of laboratory results Abnormal [facility] Lymphocytes (Bld) [#/Vol] 1.55 10*3/uL [facility] Lymphocytes/100 WBC (Bld) 26.5 % [facility] MCH (RBC) [Entitic mass] 32.4 pg 26.0 - 34.[address] [facility] MCHC (RBC) [Mass/Vol] 34.2 g/dL 30.5 - 36.0 g/dL [facility] MCV (RBC) [Entitic vol] 94.9 fL 80.0 - 100.[address] [facility] Monocytes (Bld) [#/Vol] 0.55 10*3/uL [facility] Monocytes/100 WBC (Bld) 9.4 % [facility] Neutrophils (Bld) [#/Vol] 3.19 10*3/uL [facility] Neutrophils/100 WBC (Bld) 54.4 % [facility] Nucleated RBC (Bld) [#/Vol] [facility] Nucleated RBC/100 WBC (Bld) [Ratio] 0 % /[address] [facility] Platelet mean volume (Bld) [Entitic vol] 9.4 fL 9.0 - 12.[address] [facility] Platelets (Bld) [#/Vol] 177 10*3/uL [facility] RBC (Bld) [#/Vol] 3.76 10*6/uL Low 4.20 - 6.0 0 m/uL [facility] WBC (Bld) [#/Vol] 5.86 10*3/uL [facility] Basophils (Bld) [#/Vol] 0.03 10*3/uL Normal <0.11 [facility] Comment on above: Order Comment: Speci men Type: BLOOD SPECIMEN Ordering Facility: [facility] Address: [address] [place] [address] Performed By: #### 2 857-1 #### [facility] CLIA [id number] [address] [place] [address] [place] Basophils/100 WBC (Bld) 0.5 % Normal [facility] Comment on above: Order Comment: Speci men Type: BLOOD SPECIMEN Ordering Facility: [facility] Address: [address] [place] [address] Performed By: #### 2 857-1 #### [facility] CLIA [id number] [address] [place] [address] [place] Differential cell count method Nom (Bld) Auto Normal [facility] Comment on above: Order Comment: Speci men Type: BLOOD SPECIMEN Ordering Facility: [facility] Address: [address] [place] [address] Performed By: #### 2 857-1 #### [facility] CLIA [id number] [address] [place] [address] [place] Eosinophils (Bld) [#/Vol] 0.50 10*3/uL High <0.46 [facility] Comment on above: Order Comment: Speci men Type: BLOOD SPECIMEN Ordering Facility: [facility] Address: [address] [place] [address] Performed By: #### 2 857-1 #### [facility] CLIA [id number] [address] [place] [address] [place] Eosinophils/100 WBC (Bld) 8.5 % Normal [facility] Comment on above: Order Comment: Speci men Type: BLOOD SPECIMEN Ordering Facility: [facility] Address: [address] [place] [address] Performed By: #### 2 857-1 #### [facility] CLIA [id number] [address] [place] [address] [place] Erythrocyte distribution width (RBC) [Ratio] 12.7 % Normal 11.5-15.0 [facility] Comment on above: Order Comment: Speci men Type: BLOOD SPECIMEN Ordering Facility: [facility] Address: [address] [place] [address] Performed By: #### 2 857-1 #### [facility] CLIA [id number] [address] [place] [address] [place] Hematocrit (Bld) [Volume fraction] 35.7 % Low 39.0-51.0 [facility] Comment on above: Order Comment: Speci men Type: BLOOD SPECIMEN Ordering Facility: [facility] Address: [address] [place] [address] Performed By: #### 2 857-1 #### [facility] CLIA [id number] [address] [place] [address] [place] Hemoglobin (Bld) [Mass/Vol] 12.2 g/dL Low 13.0-17.0 [facility] Comment on above: Order Comment: Speci men Type: BLOOD SPECIMEN Ordering Facility: [facility] Address: [address] [place] [address] Performed By: #### 2 857-1 #### [facility] CLIA [id number] [address] [place] [address] [place] Immature granulocytes (Bld) [#/Vol] 0.04 10*3/uL Normal <0.10 [facility] Comment on above: Order Comment: Speci men Type: BLOOD SPECIMEN Ordering Facility: [facility] Address: [address] [place] [address] Performed By: #### 2 857-1 #### [facility] CLIA [id number] [address] [place] [address] [place] Immature granulocytes/100 WBC (Bld) 0.7 % Normal [facility] Comment on above: Order Comment: Speci men Type: BLOOD SPECIMEN Ordering Facility: [facility] Address: [address] [place] [address] Performed By: #### 2 857-1 #### [facility] CLIA [id number] [address] [place] [address] [place] Lymphocytes (Bld) [#/Vol] 1.55 10*3/uL Normal 1.00-4.00 [facility] Comment on above: Order Comment: Speci men Type: BLOOD SPECIMEN Ordering Facility: [facility] Address: [address] [place] [address] Performed By: #### 2 857-1 #### [facility] CLIA [id number] [address] [place] [address] [place] Lymphocytes/100 WBC (Bld) 26.5 % Normal [facility] Comment on above: Order Comment: Speci men Type: BLOOD SPECIMEN Ordering Facility: [facility] Address: [address] [place] [address] Performed By: #### 2 857-1 #### [facility] CLIA [id number] [address] [place] [address] [place] MCH (RBC) [Entitic mass] 32.4 pg Normal 26.0-34.0 [facility] Comment on above: Order Comment: Speci men Type: BLOOD SPECIMEN Ordering Facility: [facility] Address: [address] [place] [address] Performed By: #### 2 857-1 #### [facility] CLIA [id number] [address] [place] [address] [place] MCHC (RBC) [Mass/Vol] 34.2 g/dL Normal 30.5-36.0 [facility] Comment on above: Order Comment: Speci men Type: BLOOD SPECIMEN Ordering Facility: [facility] Address: [address] [place] [address] Performed By: #### 2 857-1 #### [facility] CLIA [id number] [address] [place] [address] [place] MCV (RBC) [Entitic vol] 94.9 fL Normal 80.0-100.0 [facility] Comment on above: Order Comment: Speci men Type: BLOOD SPECIMEN Ordering Facility: [facility] Address: [address] [place] [address] Performed By: #### 2 857-1 #### [facility] CLIA [id number] [address] [place] [address] [place] Monocytes (Bld) [#/Vol] 0.55 10*3/uL Normal <0.87 [facility] Comment on above: Order Comment: Speci men Type: BLOOD SPECIMEN Ordering Facility: [facility] Address: [address] [place] [address] Performed By: #### 2 857-1 #### [facility] CLIA [id number] [address] [place] [address] [place] Monocytes/100 WBC (Bld) 9.4 % Normal [facility] Comment on above: Order Comment: Speci men Type: BLOOD SPECIMEN Ordering Facility: [facility] Address: [address] [place] [address] Performed By: #### 2 857-1 #### [facility] CLIA [id number] [address] [place] [address] [place] Neutrophils (Bld) [#/Vol] 3.19 10*3/uL Normal 1.45-7.50 [facility] Comment on above: Order Comment: Speci men Type: BLOOD SPECIMEN Ordering Facility: [facility] Address: [address] [place] [address] Performed By: #### 2 857-1 #### [facility] CLIA [id number] [address] [place] [address] [place] Neutrophils/100 WBC (Bld) 54.4 % Normal [facility] Comment on above: Order Comment: Speci men Type: BLOOD SPECIMEN Ordering Facility: [facility] Address: [address] [place] [address] Performed By: #### 2 857-1 #### [facility] CLIA [id number] [address] [place] [address] [place] Nucleated RBC (Bld) [#/Vol] 10*3/uL Normal <0.01 [facility] Comment on above: Order Comment: Speci men Type: BLOOD SPECIMEN Ordering Facility: [facility] Address: [address] [place] [address] Performed By: #### 2 857-1 #### [facility] CLIA [id number] [address] [place] [address] [place] Nucleated RBC/100 WBC (Bld) [Ratio] 0.0 /100 WBC Normal [facility] Comment on above: Order Comment: Speci men Type: BLOOD SPECIMEN Ordering Facility: [facility] Address: [address] [place] [address] Performed By: #### 2 857-1 #### [facility] CLIA [id number] [address] [place] [address] [place] Platelet mean volume (Bld) [Entitic vol] 9.4 fL Normal 9.0-12.7 [facility] Comment on above: Order Comment: Speci men Type: BLOOD SPECIMEN Ordering Facility: [facility] Address: [address] [place] [address] Performed By: #### 2 857-1 #### [facility] CLIA [id number] [address] [place] [address] [place] Platelets (Bld) [#/Vol] 177 10*3/uL Normal 150-400 [facility] Comment on above: Order Comment: Speci men Type: BLOOD SPECIMEN Ordering Facility: [facility] Address: [address] [place] [address] Performed By: #### 2 857-1 #### [facility] CLIA [id number] [address] [place] [address] [place] RBC (Bld) [#/Vol] 3.76 10*6/uL Low 4.20-6.[address] [facility] Comment on above: Order Comment: Speci men Type: BLOOD SPECIMEN Ordering Facility: [facility] Address: [address] [place] [address] Performed By: #### 2 857-1 #### [facility] CLIA [id number] [address] [place] [address] [place] WBC (Bld) [#/Vol] 5.86 10*3/uL Normal 3.70-11.[address] [facility] Comment on above: Order Comment: Speci men Type: BLOOD SPECIMEN Ordering Facility: [facility] Address: [address] [place] [address] Performed By: #### 2 857-1 #### [facility] CLIA [id number] [address] [place] [address] [place] Comprehensive metabolic 2000 panelOrdered By: Liza Lilly on 08-01-2024 Albumin [Mass/Vol] 4.2 g/dL 3.9 - 4.9 g/dL [facility] ALP [Catalytic activity/Vol] 75 U/L 38 - 113 U/L [facility] ALT [Catalytic activity/Vol] 17 U/L 10 - 54 U/L [facility] Anion gap [Moles/Vol] 11 mmol/L 8 - 15 mmol/L [facility] AST [Catalytic activity/Vol] 17 U/L 14 - 40 U/L [facility] Bilirubin [Mass/Vol] 0.6 mg/dL 0.2 - 1.3 mg/dL [facility] Calcium [Mass/Vol] 10.3 mg/dL High 8.5 - 10. 2 mg/dL [facility] Chloride [Moles/Vol] 100 mmol/L 98 - 107 mmol/L [facility] CO2 [Moles/Vol] 26 mmol/L 22 - 30 mmol/L [facility] Creatinine [Mass/Vol] 0.81 mg/dL 0.73 - 1.22 mg/dL [facility] GFR/1.73 sq M.predicted among non-blacks MDRD (S/P/Bld) [Vol rate/Area] 90 mL/min/{1.73_m2} - PINF [facility] Comment on above: Estimated Glomerular Filtration [...] 119 mg/dL High 74 - 99 mg/dL [facility] Comment on above: The [place] Diab[employer] s Association (ADA) provides guidance for [...] Standards of Medical Care in Diabetes 2016, [place] [employer]. Diabetes Care. 2016.39(Suppl 1). Interpretation and review of laboratory results Abnormal [facility] Potassium [Moles/Vol] 4.8 mmol/L 3.7 - 5.1 mmol/L [facility] Protein [Mass/Vol] 6.3 g/dL 6.3 - 8.0 g/dL [facility] Sodium [Moles/Vol] 137 mmol/L 136 - 144 mmol/L [facility] Urea nitrogen [Mass/Vol] 14 mg/dL 9 - 24 mg/dL [facility] Comprehensive metabolic 2000 panelon 08-01-2024 Albumin [Mass/Vol] 4.2 g/dL Normal 3.9-4.9 [facility] Comment on above: Order Comment: Speci men Type: BLOOD SPECIMEN Ordering Facility: [facility] Address: [address] [place] [address] Performed By: #### 2 857-1 #### [facility] CLIA [id number] [address] [place] [address] [place] ALP [Catalytic activity/Vol] 75 U/L Normal 38-113 [facility] Comment on above: Order Comment: Speci men Type: BLOOD SPECIMEN Ordering Facility: [facility] Address: [address] [place] [address] Performed By: #### 2 857-1 #### [facility] CLIA [id number] [address] [place] [address] [place] ALT [Catalytic activity/Vol] 17 U/L Normal 10-54 [facility] Comment on above: Order Comment: Speci men Type: BLOOD SPECIMEN Ordering Facility: [facility] Address: [address] [place] [address] Performed By: #### 2 857-1 #### [facility] CLIA [id number] [address] [place] [address] [place] Anion gap [Moles/Vol] 11 mmol/L Normal 8-15 [facility] Comment on above: Order Comment: Speci men Type: BLOOD SPECIMEN Ordering Facility: [facility] Address: [address] [place] [address] Performed By: #### 2 857-1 #### [facility] CLIA [id number] [address] [place] [address] [place] AST [Catalytic activity/Vol] 17 U/L Normal 14-40 [facility] Comment on above: Order Comment: Speci men Type: BLOOD SPECIMEN Ordering Facility: [facility] Address: [address] [place] [address] Performed By: #### 2 857-1 #### [facility] CLIA [id number] [address] [place] [address] [place] Bilirubin [Mass/Vol] 0.6 mg/dL Normal 0.2-1.3 [facility] Comment on above: Order Comment: Speci men Type: BLOOD SPECIMEN Ordering Facility: [facility] Address: [address] [place] [address] Performed By: #### 2 857-1 #### [facility] CLIA [id number] [address] [place] [address] [place] Calcium [Mass/Vol] 10.3 mg/dL High 8.5-10.2 [facility] Comment on above: Order Comment: Speci men Type: BLOOD SPECIMEN Ordering Facility: [facility] Address: [address] [place] [address] Performed By: #### 2 857-1 #### [facility] CLIA [id number] [address] [place] [address] [place] Chloride [Moles/Vol] 100 mmol/L Normal 98-107 [facility] Comment on above: Order Comment: Speci men Type: BLOOD SPECIMEN Ordering Facility: [facility] Address: [address] [place] [address] Performed By: #### 2 857-1 #### [facility] CLIA [id number] [address] [place] [address] [place] CO2 [Moles/Vol] 26 mmol/L Normal 22-30 [facility] Comment on above: Order Comment: Speci men Type: BLOOD SPECIMEN Ordering Facility: [facility] Address: [address] [place] [address] Performed By: #### 2 857-1 #### [facility] CLIA [id number] [address] [place], [place] [id number] [place] [facility] Creatinine [Mass/Vol] 0.81 mg/dL Normal 0.73-1.22 [facility] Comment on above: Order Comment: Nicanor camilo Type: BLOOD SPECIMEN Ordering Facility: [facility] Address: [address] [place] [address] Performed By: #### 2 857-1 #### [facility] CLIA [id number] [address] [place] [address] OF [facility] Creatinine and Glomerular filtration rate.predicted panel (S/P/Bld) 90 mL/min/1.73m??? Normal >=60 [facility] Comment on above: Order Comment: Nicanor camilo Type: BLOOD SPECIMEN Ordering Facility: [facility] Address: [address] [place] [address] Result Comment: Renae mated Glomerular Filtration Rate [...] GFR. Performed By: #### 2 857-1 #### [facility] CLIA [id number] [address] [place] [address] [place] Glucose [Mass/Vol] 119 mg/dL High 74-99 [facility] Comment on above: Order Comment: Nicanor camilo Type: BLOOD SPECIMEN Ordering Facility: [facility] Address: [address] [place] [address] Result Comment: The [place] [employer] (ADA) provides guidance for cutoff [...] Standards of Medical Care in Diabetes 2016, [place] [employer]. Diabetes Care. 2016.39(Suppl 1). Performed By: #### 2 857-1 #### [facility] CLIA [id number] [address] [place] [address] [place] Potassium [Moles/Vol] 4.8 mmol/L Normal 3.7-5.1 [facility] Comment on above: Order Comment: Speci men Type: BLOOD SPECIMEN Ordering Facility: [facility] Address: [address] [place] [address] Performed By: #### 2 857-1 #### [facility] CLIA [id number] [address] [place] [address] [place] Protein [Mass/Vol] 6.3 g/dL Normal 6.3-8.0 [facility] Comment on above: Order Comment: Speci men Type: BLOOD SPECIMEN Ordering Facility: [facility] Address: [address] [place] [address] Performed By: #### 2 857-1 #### [facility] CLIA [id number] [address] [place] [address] [place] Sodium [Moles/Vol] 137 mmol/L Normal 136-144 [facility] Comment on above: Order Comment: Speci men Type: BLOOD SPECIMEN Ordering Facility: [facility] Address: [address] [place] [address] Performed By: #### 2 857-1 #### [facility] CLIA [id number] [address] [place] [address] [place] Urea nitrogen [Mass/Vol] 14 mg/dL Normal 9-24 [facility] Comment on above: Order Comment: Speci men Type: BLOOD SPECIMEN Ordering Facility: [facility] Address: [address] [place] [address] Performed By: #### 2 857-1 #### [facility] CLIA [id number] [address] [place] [address] [place] Eosinophils/100 WBC Auto (Bl d)on 08-01-2024 Eosinophils/100 WBC (Bld) Automated eosinophil % [facility] Erythrocyte distribution wid th Auto (RBC) [Ratio]on 08-01-2024 Erythrocyte distribution width (RBC) [Ratio] Erythrocyte distribution width [Ratio] by Automated count 11.5-15.0 [facility] Hematocrit Auto (Bld) [Volum e fraction]on 08-01-2024 Hematocrit (Bld) [Volume fraction] Hematocrit [Volume Fraction] of Blood by Automated count Low 39.0-51.0 [facility] Hemoglobin [Mass/volume] in Bloodon 08-01-2024 Hemoglobin (Bld) [Mass/Vol] Hemoglobin [Mass/volume] in Blood Low 13.0-17.0 [facility] Laboratory - Chemistry and C hemistry - challengeon 08-01-2024 Albumin [Mass/Vol] 4.2 g/dL 3.9-4.9 [facility] ALP [Catalytic activity/Vol] 75 U/L 38-113 [facility] ALT [Catalytic activity/Vol] 17 U/L 10-54 [facility] AST [Catalytic activity/Vol] 17 U/L 14-40 [facility] Bilirubin [Mass/Vol] 0.6 mg/dL 0.2-1.3 [facility] Calcium [Mass/Vol] 10.3 mg/dL High 8.5-10.2 [facility] Chloride [Moles/Vol] 100 mmol/L 98-107 [facility] CO2 [Moles/Vol] 26 mmol/L 22-30 [facility] Creatinine [Mass/Vol] 0.81 mg/dL 0.73-1.22 [facility] Glucose [Mass/Vol] 119 mg/dL High 74-99 [facility] Comment on above: The [place] Diab[employer] s Association (ADA) provides guidance for [...] Standards of Medical Care in Diabetes 2016, [place] [employer]. Diabetes Care. 2016.39(Suppl 1). Potassium [Moles/Vol] 4.8 mmol/L 3.7-5.1 [facility] Sodium [Moles/Vol] 137 mmol/L 136-144 [facility] Urea nitrogen [Mass/Vol] 14 mg/dL 04-09 [facility] Laboratory - Hematology and Cell countson 08-01-2024 Eosinophils (Bld) [#/Vol] 0.50 10*3/uL High <0.46 [facility] Immature granulocytes (Bld) [#/Vol] 0.04 10*3/uL <0.10 [facility] Immature granulocytes/100 WBC (Bld) 0.7 % [facility] Leukocytes [#/volume] correc jomar for nucleated erythrocytes in Blood by Automated counon 08-01-2024 WBC corrected for nucl RBC Auto (Bld) [#/Vol] Leukocytes [#/volume] corrected for nucleated erythrocytes in Blood by Automated coun 3.70-11.00 [facility] Lymphocytes Auto (Bld) [#/Vo l]on 08-01-2024 Lymphocytes (Bld) [#/Vol] Lymphocytes [#/volume] in Blood by Automated count 1.00-4.00 [facility] Lymphocytes/100 WBC Auto (Bl d)on 08-01-2024 Lymphocytes/100 WBC (Bld) Lymphocytes/100 leukocytes in Blood by Automated count [facility] MCH Auto (RBC) [Entitic mass ]on 08-01-2024 MCH (RBC) [Entitic mass] MCH [Entitic mass] by Automated count 26.0-34.0 [facility] MCHC Auto (RBC) [Mass/Vol]on 08-01-2024 MCHC (RBC) [Mass/Vol] MCHC [Mass/volume] by Automated count 30.5-36.0 [facility] MCV Auto (RBC) [Entitic vol] on 08-01-2024 MCV (RBC) [Entitic vol] MCV [Entitic volume] by Automated count 80.0-100.0 [facility] Monocytes Auto (Bld) [#/Vol] on 08-01-2024 Monocytes (Bld) [#/Vol] Automated blood monocyte count <0.87 [facility] Monocytes/100 WBC Auto (Bld) on 08-01-2024 Monocytes/100 WBC (Bld) Automated monocyte % [facility] Neutrophils Auto (Bld) [#/Vo l]on 08-01-2024 Neutrophils (Bld) [#/Vol] Neutrophils [#/volume] in Blood by Automated count 1.45-7.50 [facility] Neutrophils/100 WBC Auto (Bl d)on 08-01-2024 Neutrophils/100 WBC (Bld) Automated neutrophil % [facility] No Panel Informationon 08-01 Estimated GFR (CKD-EPI) 90 mL/min/1.73m??? >=60 [facility] Comment on above: Estimated Glomerular Filtration [...] GFR. Prostate Specific Antigen 0.19 ng/mL <2.60 [facility] Comment on above: Total PSA test metho dology used is the Electrochemiluminescence Immunoassay by [employer]. Total PSA values by differing methodologies cannot be interchanged. Nucleated RBC Auto (Bld) [#/ Vol]on 08-01-2024 Nucleated RBC (Bld) [#/Vol] Nucleated erythrocytes [#/volume] in Blood by Automated count <0.01 [facility] Nucleated erythrocytes [Pres ence] in Blood by Automated counton 08-01-2024 Nucleated RBC Auto Ql (Bld) Nucleated erythrocytes [Presence] in Blood by Automated count [facility] PROSTATE-SPECIFIC ANTIGEN DI AGNOSTICon 08-01-2024 Prostate specific Ag [Mass/Vol] 0.19 ng/mL NIN - 2.60 ng/mL [facility] Comment on above: Total PSA test metho dology used is the Electrochemiluminescence Immunoassay by [employer]. Total PSA values by differing methodologies cannot be interchanged. PSA SerPl-mCncon 08-01-2024 Prostate specific Ag [Mass/Vol] 0.19 ng/mL Normal <2.60 [facility] Comment on above: Order Comment: Speci men Type: BLOOD SPECIMEN Ordering Facility: [facility] Address: [address] [place] [address] Result Comment: Tota l PSA test methodology used is the Electrochemiluminescence Immunoassay by [employer]. Total PSA values by differing methodologies cannot be interchanged. Performed By: #### 5 7021-8 #### [facility] CLIA [id number] [address] [place] [address] Platelet mean volume Auto (B ld) [Entitic vol]on 08-01-2024 Platelet mean volume (Bld) [Entitic vol] Platelet mean volume [Entitic volume] in Blood by Automated count 9.0-12.7 [facility] Platelets Auto (Bld) [#/Vol] on 08-01-2024 Platelets (Bld) [#/Vol] Platelets [#/volume] in Blood by Automated count 150-400 [facility] Prostate specific Ag [Mass/V ol]on 08-01-2024 Interpretation and review of laboratory results Normal [facility] Protein [Mass/volume] in Ser um or Plasmaon 08-01-2024 Protein [Mass/Vol] Protein [Mass/volume ] in Serum or Plasma 6.3-8.0 [facility] RBC Auto (Bld) [#/Vol]on RBC (Bld) [#/Vol] Erythrocytes [#/volu me] in Blood by Automated count Low 4.20-6.00 [facility] Serum or plasma anion gap de terminationon 08-01-2024 Anion gap [Moles/Vol] Serum or plasma anion gap determination 8-15 [facility] CNPNon 07-25-2024 CNPN Telephone (Opbeat) JERICAPABLO An ([id number]) 1945 M Date Time Provider Department 07/25/24 [...] Date Reviewed: 02/02/2024 Reviewed by: Lynne Rajan APRN.LOGGER - Fully Assessed Reason for Visit: Lab Orders [1688] Primary Visit Diagnosis:Malignant neoplasm of prostate (HCC) [C61] Order(s):COMPLETE BLOOD COUNT AND DIFFERENTIAL [SQCBCDIF] Order #: [id number] FUTURE COMPREHENSIVE METABOLIC PANEL [SQCMP] Order #: [id number] FUTURE PROSTATE-SPECIFIC ANTIGEN DIAGNOSTIC [SQPSA] Order #: [id number] FUTURE Prescriptions as of 10/16/2024 - enzalutamide (XTANDI) 40 mg tablet Take 4 tablets (160 mg) by mouth once daily. - Calcium Citrate-Vitamin D3 200 mg-6.25 mcg (250 unit) tab Take 2 tablets by mouth once daily. - metoprolol succinate ER (TOPROL XL) 25 mg 24 hr tablet Take by mouth. - Rjniufqzgzqhq-Jjfllvrm-Ilnv in (MULTIVITAMIN 50 PLUS) tab Take 1 [...] Encounter Status:Closed by JOSEMANUEL BLANCHARD on 10/16/24 [facility] CNOVSPon 05-09-2024 CNOVSP Visit (SP) Office (H EMASA) ELVIRAPABLO Jessica ([id number]) 1945 M Date Time Provider Department 05/09/24 [...] PHYSICIANS: Dr. Anthony Scruggs, Dr. Khan, [facility] Cardiology Portions of this encounter note [...] mg 24 hr tablet Take by mouth. 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 Left base margin positive for neoplasm. Seminal vesicles with no diagnostic abnormality. 2 resected lymph nodes negative for neoplasm. LABS: Hemoglobin (g/dL) Date Value 05/03/2024 11.5 05/08/2018 12.8 Hematocrit (%) Date Value 05/03/2024 33.2 05/08/2018 36.8 WBC (k/uL) Date Value 1 (more content not included)... Normal [facility] CBC W Auto Differential pane l (Bld)on 05-03-2024 Basophils (Bld) [#/Vol] 0.03 10*3/uL Normal <0.11 [facility] Comment on above: Order Comment: Speci men Type: BLOOD SPECIMEN Ordering Facility: [facility] Address: [address] [place] [address] Performed By: #### 2 857-1 #### [facility] CLIA [id number] [address] [place] [address] [place] Basophils/100 WBC (Bld) 0.5 % Normal [facility] Comment on above: Order Comment: Speci men Type: BLOOD SPECIMEN Ordering Facility: [facility] Address: [address] [place] [address] Performed By: #### 2 857-1 #### [facility] CLIA [id number] [address] [place] [address] [place] Differential cell count method Nom (Bld) Auto Normal [facility] Comment on above: Order Comment: Speci men Type: BLOOD SPECIMEN Ordering Facility: [facility] Address: [address] [place] [address] Performed By: #### 2 857-1 #### [facility] CLIA [id number] [address] [place] [address] [place] Eosinophils (Bld) [#/Vol] 0.48 10*3/uL High <0.46 [facility] Comment on above: Order Comment: Speci men Type: BLOOD SPECIMEN Ordering Facility: [facility] Address: [address] [place] [address] Performed By: #### 2 857-1 #### [facility] CLIA [id number] [address] [place] [address] [place] Eosinophils/100 WBC (Bld) 8.0 % Normal [facility] Comment on above: Order Comment: Speci men Type: BLOOD SPECIMEN Ordering Facility: [facility] Address: [address] [place] [address] Performed By: #### 2 857-1 #### [facility] CLIA [id number] [address] [place] [address] [place] Erythrocyte distribution width (RBC) [Ratio] 12.6 % Normal 11.5-15.0 [facility] Comment on above: Order Comment: Speci men Type: BLOOD SPECIMEN Ordering Facility: [facility] Address: [address] [place] [address] Performed By: #### 2 857-1 #### [facility] CLIA [id number] [address] [place] [address] [place] Hematocrit (Bld) [Volume fraction] 33.2 % Low 39.0-51.0 [facility] Comment on above: Order Comment: Speci men Type: BLOOD SPECIMEN Ordering Facility: [facility] Address: [address] [place] [address] Performed By: #### 2 857-1 #### [facility] CLIA [id number] [address] [place] [address] [place] Hemoglobin (Bld) [Mass/Vol] 11.5 g/dL Low 13.0-17.0 [facility] Comment on above: Order Comment: Speci men Type: BLOOD SPECIMEN Ordering Facility: [facility] Address: [address] [place] [address] Performed By: #### 2 857-1 #### [facility] CLIA [id number] [address] [place] [address] [place] Immature granulocytes (Bld) [#/Vol] 0.04 10*3/uL Normal <0.10 [facility] Comment on above: Order Comment: Speci men Type: BLOOD SPECIMEN Ordering Facility: [facility] Address: [address] [place] [address] Performed By: #### 2 857-1 #### [facility] CLIA [id number] [address] [place] [address] [place] Immature granulocytes/100 WBC (Bld) 0.7 % Normal [facility] Comment on above: Order Comment: Speci men Type: BLOOD SPECIMEN Ordering Facility: [facility] Address: [address] [place] [address] Performed By: #### 2 857-1 #### [facility] CLIA [id number] [address] [place] [address] [place] Lymphocytes (Bld) [#/Vol] 1.76 10*3/uL Normal 1.00-4.00 [facility] Comment on above: Order Comment: Speci men Type: BLOOD SPECIMEN Ordering Facility: [facility] Address: [address] [place] [address] Performed By: #### 2 857-1 #### [facility] CLIA [id number] [address] [place] [address] [place] Lymphocytes/100 WBC (Bld) 29.4 % Normal [facility] Comment on above: Order Comment: Speci men Type: BLOOD SPECIMEN Ordering Facility: [facility] Address: [address] [place] [address] Performed By: #### 2 857-1 #### [facility] CLIA [id number] [address] [place] [address] [place] MCH (RBC) [Entitic mass] 33.0 pg Normal 26.0-34.0 [facility] Comment on above: Order Comment: Speci men Type: BLOOD SPECIMEN Ordering Facility: [facility] Address: [address] [place] [address] Performed By: #### 2 857-1 #### [facility] CLIA [id number] [address] [place] [address] [place] MCHC (RBC) [Mass/Vol] 34.6 g/dL Normal 30.5-36.0 [facility] Comment on above: Order Comment: Speci men Type: BLOOD SPECIMEN Ordering Facility: [facility] Address: [address] [place] [address] Performed By: #### 2 857-1 #### [facility] CLIA [id number] [address] [place] [address] [place] MCV (RBC) [Entitic vol] 95.1 fL Normal 80.0-100.0 [facility] Comment on above: Order Comment: Speci men Type: BLOOD SPECIMEN Ordering Facility: [facility] Address: [address] [place] [address] Performed By: #### 2 857-1 #### [facility] CLIA [id number] [address] [place] [address] [place] Monocytes (Bld) [#/Vol] 0.48 10*3/uL Normal <0.87 [facility] Comment on above: Order Comment: Speci men Type: BLOOD SPECIMEN Ordering Facility: [facility] Address: [address] [place] [address] Performed By: #### 2 857-1 #### [facility] CLIA [id number] [address] [place] [address] [place] Monocytes/100 WBC (Bld) 8.0 % Normal [facility] Comment on above: Order Comment: Speci men Type: BLOOD SPECIMEN Ordering Facility: [facility] Address: [address] [place] [address] Performed By: #### 2 857-1 #### [facility] CLIA [id number] [address] [place] [address] [place] Neutrophils (Bld) [#/Vol] 3.19 10*3/uL Normal 1.45-7.50 [facility] Comment on above: Order Comment: Speci men Type: BLOOD SPECIMEN Ordering Facility: [facility] Address: [address] [place] [address] Performed By: #### 2 857-1 #### [facility] CLIA [id number] [address] [place] [address] [place] Neutrophils/100 WBC (Bld) 53.4 % Normal [facility] Comment on above: Order Comment: Speci men Type: BLOOD SPECIMEN Ordering Facility: [facility] Address: [address] [place] [address] Performed By: #### 2 857-1 #### [facility] CLIA [id number] [address] [place] [address] [place] Nucleated RBC (Bld) [#/Vol] 10*3/uL Normal <0.01 [facility] Comment on above: Order Comment: Speci men Type: BLOOD SPECIMEN Ordering Facility: [facility] Address: [address] [place] [address] Performed By: #### 2 857-1 #### [facility] CLIA [id number] [address] [place] [address] [place] Nucleated RBC/100 WBC (Bld) [Ratio] 0.0 /100 WBC Normal [facility] Comment on above: Order Comment: Speci men Type: BLOOD SPECIMEN Ordering Facility: [facility] Address: [address] [place] [address] Performed By: #### 2 857-1 #### [facility] CLIA [id number] [address] [place] [address] [place] Platelet mean volume (Bld) [Entitic vol] 9.3 fL Normal 9.0-12.7 [facility] Comment on above: Order Comment: Speci men Type: BLOOD SPECIMEN Ordering Facility: [facility] Address: [address] [place] [address] Performed By: #### 2 857-1 #### [facility] CLIA [id number] [address] [place] [address] [place] Platelets (Bld) [#/Vol] 192 10*3/uL Normal 150-400 [facility] Comment on above: Order Comment: Speci men Type: BLOOD SPECIMEN Ordering Facility: [facility] Address: [address] [place] [address] Performed By: #### 2 857-1 #### [facility] CLIA [id number] [address] [place] [address] [place] RBC (Bld) [#/Vol] 3.49 10*6/uL Low 4.20-6.[address] [facility] Comment on above: Order Comment: Speci men Type: BLOOD SPECIMEN Ordering Facility: [facility] Address: [address] [place] [address] Performed By: #### 2 857-1 #### [facility] CLIA [id number] [address] [place] [address] [place] WBC (Bld) [#/Vol] 5.98 10*3/uL Normal 3.70-11.[address] [facility] Comment on above: Order Comment: Speci men Type: BLOOD SPECIMEN Ordering Facility: [facility] Address: [address] [place] [address] Performed By: #### 2 857-1 #### [facility] CLIA [id number] [address] [place] [address] [place] Comprehensive metabolic 2000 panelon 05-03-2024 Albumin [Mass/Vol] 3.9 g/dL Normal 3.9-4.9 [facility] Comment on above: Order Comment: Speci men Type: BLOOD SPECIMEN Ordering Facility: [facility] Address: [address] [place] [address] Performed By: #### 2 857-1 #### [facility] CLIA [id number] [address] [place] [address] [place] ALP [Catalytic activity/Vol] 71 U/L Normal 38-113 [facility] Comment on above: Order Comment: Speci men Type: BLOOD SPECIMEN Ordering Facility: [facility] Address: [address] [place] [address] Performed By: #### 2 857-1 #### [facility] CLIA [id number] [address] [place] [address] [place] ALT [Catalytic activity/Vol] 16 U/L Normal 10-54 [facility] Comment on above: Order Comment: Speci men Type: BLOOD SPECIMEN Ordering Facility: [facility] Address: [address] [place] [address] Performed By: #### 2 857-1 #### [facility] CLIA [id number] [address] [place] [address] [place] Anion gap [Moles/Vol] 9 mmol/L Normal 8-15 [facility] Comment on above: Order Comment: Speci men Type: BLOOD SPECIMEN Ordering Facility: [facility] Address: [address] [place] [address] Performed By: #### 2 857-1 #### [facility] CLIA [id number] [address] [place] [address] [place] AST [Catalytic activity/Vol] 17 U/L Normal 14-40 [facility] Comment on above: Order Comment: Speci men Type: BLOOD SPECIMEN Ordering Facility: [facility] Address: [address] [place] [address] Performed By: #### 2 857-1 #### [facility] CLIA [id number] [address] [place] [address] [place] Bilirubin [Mass/Vol] 0.5 mg/dL Normal 0.2-1.3 [facility] Comment on above: Order Comment: Speci men Type: BLOOD SPECIMEN Ordering Facility: [facility] Address: [address] [place] [address] Performed By: #### 2 857-1 #### [facility] CLIA [id number] [address] [place] [address] [place] Calcium [Mass/Vol] 9.5 mg/dL Normal 8.5-10.2 [facility] Comment on above: Order Comment: Speci men Type: BLOOD SPECIMEN Ordering Facility: [facility] Address: [address] [place] [address] Performed By: #### 2 857-1 #### [facility] CLIA [id number] [address] [place] [address] [place] Chloride [Moles/Vol] 104 mmol/L Normal 98-107 [facility] Comment on above: Order Comment: Speci men Type: BLOOD SPECIMEN Ordering Facility: [facility] Address: [address] [place] [address] Performed By: #### 2 857-1 #### [facility] CLIA [id number] [address] [place] [address] [place] CO2 [Moles/Vol] 26 mmol/L Normal 22-30 [facility] Comment on above: Order Comment: Speci men Type: BLOOD SPECIMEN Ordering Facility: [facility] Address: [address] [place] [address] Performed By: #### 2 857-1 #### [facility] [facility] CLIA [id number] [address] [place] [address] [place] Creatinine [Mass/Vol] 0.88 mg/dL Normal 0.73-1.22 [facility] [place] [facility] Comment on above: Order Comment: Speci men Type: BLOOD SPECIMEN Ordering Facility: [facility] Address: [address] [place] [address] Performed By: #### 2 857-1 #### [facility] CLIA [id number] [address] [place] [address] [place] Creatinine and Glomerular filtration rate.predicted panel (S/P/Bld) 88 mL/min/1.73m??? Normal >=60 [facility] [place] [facility] Comment on above: Order Comment: Speci men Type: BLOOD SPECIMEN Ordering Facility: [facility] Address: [address] [place] [address] Result Comment: Renae mated Glomerular Filtration Rate [...] GFR. Performed By: #### 2 857-1 #### [facility] CLIA [id number] [address] [place] [address] [place] Glucose [Mass/Vol] 106 mg/dL High 74-99 [facility] Comment on above: Order Comment: Speci men Type: BLOOD SPECIMEN Ordering Facility: [facility] Address: [address] [place] [address] Result Comment: The [place] Diabetes Association (ADA) provides guidance for cutoff [...] Standards of Medical Care in Diabetes 2016, [place] [employer] Association. Diabetes Care. 2016.39(Suppl 1). Performed By: #### 2 857-1 #### [facility] CLIA [id number] [address] [place] [address] [place] Potassium [Moles/Vol] 5.6 mmol/L High 3.7-5.1 [facility] [place] [facility] Comment on above: Order Comment: Speci men Type: BLOOD SPECIMEN Ordering Facility: [facility] Address: [address] [place] [address] Performed By: #### 2 857-1 #### [facility] CLIA [id number] [address] [place] [address] [place] Protein [Mass/Vol] 6.3 g/dL Normal 6.3-8.0 [facility] Comment on above: Order Comment: Speci men Type: BLOOD SPECIMEN Ordering Facility: [facility] Address: [address] [place] [address] Performed By: #### 2 857-1 #### [facility] CLIA [id number] [address] [place] [address] [place] Sodium [Moles/Vol] 139 mmol/L Normal 136-144 [facility] Comment on above: Order Comment: Speci men Type: BLOOD SPECIMEN Ordering Facility: [facility] Address: [address] [place] [address] Performed By: #### 2 857-1 #### [facility] CLIA [id number] [address] [place] [address] [place] Urea nitrogen [Mass/Vol] 19 mg/dL Normal 9-24 [facility] [place] [facility] Comment on above: Order Comment: Speci men Type: BLOOD SPECIMEN Ordering Facility: [facility] Address: [address] [place] [address] Performed By: #### 2 857-1 #### [facility] CLIA [id number] [address] [place] [address] [place] [facility] Prostate specific Ag [Mass/Vol] 0.18 ng/mL Normal <2.60 [facility] [place] [facility] Comment on above: Order Comment: Speci men Type: BLOOD SPECIMEN Ordering Facility: [facility] Address: [address] [place] [address] Result Comment: Tota l PSA test methodology used is the Electrochemiluminescence Immunoassay by [employer]. Total PSA values by differing methodologies cannot be interchanged. Performed By: #### 2 857-1 #### [facility] CLIA [id number] [address] [place] [address] [place] Ambulatory Visit Summaryon 1 Ambulatory Visit Summary Ambulatory Visit Summary JERICANataliyaPABLO :1945 Visit Date:04/19/2024 Ambulatory Visit Instructions Your [...] mg Tab) ipratropium nasal (ipratropium Nasal 0.06% Tornillo) metformin (metformin 1000 mg oral tablet) metoprolol [...] Anthony SCRUGGS MD Where: [facility] [place] [address] [place] [address]- You Need to Schedule the Following Appointments Follow Up with Anthony SCRUGGS MD, URL When: Where: [address] [place] [address]- Medications What How Much When Instructions Unchanged [...] concerns Unchanged ipratropium nasal (ipratropium Nasal 0.06% Tornillo) Contact prescribing physician if questions or concerns [...] Trouble st (more content not included)... Normal [facility] Urology Office/Clinic Noteon 04-19-2024 Urology Office/Clinic Note [...] qd and Xgeva q3mos. Last seen by [facility] oncology 02/02/24. Plan at that time [...] Information KAEL JAMES, Anthony Lee, URL [address] [place] [address]- Additional Instructions: 6 mos w/ PSA and [...] hydrochlorothiazide-lisinop ril (more content not included)... Normal [facility] Comment on above: Result Comment: Elec tronically Signed By: KAEL JAMES, Anthony Lee\.br\Date and Time Signed: 04/19/24 08:47 EDT\.br\Electronically Co-Signed By: Olamide Ureña\.br\Date and Time Co-Signed: 04/19/24 08:45 EDT Office Visiton 03-29-2024 Follow-up visit [id number] Pablo Felix 1945 M Date Provider Department Center 03/29/2024 LORA BANUELOS [facility] Family History Problem Relation Age of Onset Coronary artery disease Father Family Status - Relation Status Age at Father Level of Service:[id number] ID OFFICE/OUTPATIENT ESTABLISHED MOD MDM 30 MIN Normal [facility] Basophils Auto (Bld) [#/Vol] on 01-25-2024 Basophils (Bld) [#/Vol] 0.04 10*3/uL <0.11 [facility] Basophils/100 WBC Auto (Bld) on 01-25-2024 Basophils/100 WBC (Bld) 0.6 % [facility] Blood manual differential co mment interpretation narrativeon 01-25-2024 Manual differential comment [place] (Bld) [Interp] Auto [facility] Eosinophils/100 WBC Auto (Bl d)on 01-25-2024 Eosinophils/100 WBC (Bld) 5.9 % [facility] Erythrocyte distribution wid th Auto (RBC) [Ratio]on 01-25-2024 Erythrocyte distribution width (RBC) [Ratio] 12.7 % 11.5-15.0 [facility] Hematocrit Auto (Bld) [Volum e fraction]on 01-25-2024 Hematocrit (Bld) [Volume fraction] 34.6 % Low 39.0-51.0 [facility] Hemoglobin [Mass/volume] in Bloodon 01-25-2024 Hemoglobin (Bld) [Mass/Vol] 11.8 g/dL Low 13.0-17.0 [facility] Laboratory - Chemistry and C hemistry - challengeon 01-25-2024 Albumin [Mass/Vol] 4.0 g/dL 3.9-4.9 [facility] ALP [Catalytic activity/Vol] 74 U/L 38-113 [facility] ALT [Catalytic activity/Vol] 18 U/L 10-54 [facility] AST [Catalytic activity/Vol] 19 U/L 14-40 [facility] Bilirubin [Mass/Vol] 0.7 mg/dL 0.2-1.3 [facility] Calcium [Mass/Vol] 9.9 mg/dL 8.5-10.2 [facility] Chloride [Moles/Vol] 103 mmol/L 98-107 [facility] CO2 [Moles/Vol] 25 mmol/L 22-30 [facility] Creatinine [Mass/Vol] 0.79 mg/dL 0.73-1.22 [facility] Glucose [Mass/Vol] 112 mg/dL High 74-99 [facility] Comment on above: The [place] Diabete s Association (ADA) provides guidance for [...] Standards of Medical Care in Diabetes 2016, [place] Diabetes Association. Diabetes Care. 2016.39(Suppl 1). Potassium [Moles/Vol] 5.2 mmol/L High 3.7-5.1 [facility] Sodium [Moles/Vol] 137 mmol/L 136-144 [facility] Urea nitrogen [Mass/Vol] 15 mg/dL 9-24 [facility] - Hematology and Cell countson 01-25-2024 Eosinophils (Bld) [#/Vol] 0.40 10*3/uL <0.46 [facility] Immature granulocytes (Bld) [#/Vol] 0.07 10*3/uL <0.10 [facility] Immature granulocytes/100 WBC (Bld) 1.0 % [facility] Leukocytes [#/volume] correc jomar for nucleated erythrocytes in Blood by Automated counon 01-25-2024 WBC corrected for nucl RBC Auto (Bld) [#/Vol] 6.80 k/uL 3.70-11.00 [facility] Lymphocytes Auto (Bld) [#/Vo l]on 01-25-2024 Lymphocytes (Bld) [#/Vol] 2.16 10*3/uL 1.00-4.00 [facility] Lymphocytes/100 WBC Auto (Bl d)on 01-25-2024 Lymphocytes/100 WBC (Bld) 31.8 % [facility] MCH Auto (RBC) [Entitic mass ]on 01-25-2024 MCH (RBC) [Entitic mass] 32.2 pg 26.0-34.0 [facility] MCHC Auto (RBC) [Mass/Vol]on 01-25-2024 MCHC (RBC) [Mass/Vol] 34.1 g/dL 30.5-36.0 [facility] MCV Auto (RBC) [Entitic vol] on 01-25-2024 MCV (RBC) [Entitic vol] 94.3 fL 80.0-100.0 [facility] Monocytes Auto (Bld) [#/Vol] on 01-25-2024 Monocytes (Bld) [#/Vol] 0.60 10*3/uL <0.87 [facility] Monocytes/100 WBC Auto (Bld) on 01-25-2024 Monocytes/100 WBC (Bld) 8.8 % [facility] Neutrophils Auto (Bld) [#/Vo l]on 01-25-2024 Neutrophils (Bld) [#/Vol] 3.53 10*3/uL 1.45-7.50 [facility] Neutrophils/100 WBC Auto (Bl d)on 01-25-2024 Neutrophils/100 WBC (Bld) 51.9 % [facility] No Panel Informationon 01-24 Estimated GFR (CKD-EPI) 91 mL/min/1.73m??? >=60 [facility] Comment on above: Estimated Glomerular Filtration [...] GFR. Prostate Specific Antigen 0.15 ng/mL <2.60 [facility] Comment on above: Total PSA test metho dology used is the Electrochemiluminescence Immunoassay by [employer]. Total PSA values by differing methodologies cannot be interchanged. Nucleated RBC Auto (Bld) [#/ Vol]on 01-25-2024 Nucleated RBC (Bld) [#/Vol] 10*3/uL <0.01 [facility] Nucleated erythrocytes [Pres ence] in Blood by Automated counton 01-25-2024 Nucleated RBC Auto Ql (Bld) 0.0 /100{WBC} [facility] Platelet mean volume Auto (B ld) [Entitic vol]on 01-25-2024 Platelet mean volume (Bld) [Entitic vol] 10.3 fL 9.0-12.7 [facility] Platelets Auto (Bld) [#/Vol] on 01-25-2024 Platelets (Bld) [#/Vol] 184 10*3/uL 150-400 [facility] Protein [Mass/volume] in Ser um or Plasmaon 01-25-2024 Protein [Mass/Vol] 6.6 g/dL 6.3-8.0 [facility] RBC Auto (Bld) [#/Vol]on RBC (Bld) [#/Vol] 3.67 10*6/uL Low 4.20-6.00 [facility] Serum or plasma anion gap de terminationon 07-11-2024 Anion gap [Moles/Vol] 9 mmol/L 8-15 [facility] Basophils Auto (Bld) [#/Vol] on 10-30-2023 Basophils (Bld) [#/Vol] 0.04 10*3/uL <0.11 [facility] Basophils/100 WBC Auto (Bld) on 10-30-2023 Basophils/100 WBC (Bld) 0.5 % [facility] Blood manual differential co mment interpretation narrativeon 10-30-2023 Manual differential comment [place] (Bld) [Interp] Auto [facility] Eosinophils/100 WBC Auto (Bl d)on 10-30-2023 Eosinophils/100 WBC (Bld) 4.3 % [facility] Erythrocyte distribution wid th Auto (RBC) [Ratio]on 10-30-2023 Erythrocyte distribution width (RBC) [Ratio] 12.8 % 11.5-15.0 [facility] Hematocrit Auto (Bld) [Volum e fraction]on 10-30-2023 Hematocrit (Bld) [Volume fraction] 35.8 % 39.0-51.0 [facility] Hemoglobin [Mass/volume] in Bloodon 10-30-2023 Hemoglobin (Bld) [Mass/Vol] 12.2 g/dL 13.0-17.0 [facility] - Chemistry and C hemistry - challengeon 10-30-2023 Albumin [Mass/Vol] 4.1 g/dL 3.9-4.9 [facility] ALP [Catalytic activity/Vol] 75 U/L 38-113 [facility] ALT [Catalytic activity/Vol] 16 U/L 10-54 [facility] AST [Catalytic activity/Vol] 16 U/L 14-40 [facility] Bilirubin [Mass/Vol] 0.7 mg/dL 0.2-1.3 [facility] Calcium [Mass/Vol] 9.8 mg/dL 8.5-10.2 [facility] Chloride [Moles/Vol] 103 mmol/L 97-105 [facility] CO2 [Moles/Vol] 24 mmol/L 22-30 [facility] Creatinine [Mass/Vol] 0.88 mg/dL 0.73-1.22 [facility] Glucose [Mass/Vol] 128 mg/dL 74-99 [facility] Comment on above: The [place] Diabete s Association (ADA) provides guidance for [...] Standards of Medical Care in Diabetes 2016, [place] Diabetes Association. Diabetes Care. 2016.39(Suppl 1). Potassium [Moles/Vol] 4.8 mmol/L 3.7-5.1 [facility] Sodium [Moles/Vol] 140 mmol/L 136-144 [facility] Urea nitrogen [Mass/Vol] 18 mg/dL 9-24 [facility] - Hematology and Cell countson 10-30-2023 Eosinophils (Bld) [#/Vol] 0.35 10*3/uL <0.46 [facility] Immature granulocytes (Bld) [#/Vol] 0.04 10*3/uL <0.10 [facility] Immature granulocytes/100 WBC (Bld) 0.5 % [facility] Leukocytes [#/volume] correc jomar for nucleated erythrocytes in Blood by Automated counon 10-30-2023 WBC corrected for nucl RBC Auto (Bld) [#/Vol] 8.19 k/uL 3.70-11.00 [facility] Lymphocytes Auto (Bld) [#/Vo l]on 10-30-2023 Lymphocytes (Bld) [#/Vol] 1.36 10*3/uL 1.00-4.00 [facility] Lymphocytes/100 WBC Auto (Bl d)on 10-30-2023 Lymphocytes/100 WBC (Bld) 16.6 % [facility] MCH Auto (RBC) [Entitic mass ]on 10-30-2023 MCH (RBC) [Entitic mass] 31.3 pg 26.0-34.0 [facility] MCHC Auto (RBC) [Mass/Vol]on 10-30-2023 MCHC (RBC) [Mass/Vol] 34.1 g/dL 30.5-36.0 [facility] MCV Auto (RBC) [Entitic vol] on 10-30-2023 MCV (RBC) [Entitic vol] 91.8 fL 80.0-100.0 [facility] Monocytes Auto (Bld) [#/Vol] on 10-30-2023 Monocytes (Bld) [#/Vol] 0.62 10*3/uL <0.87 [facility] Monocytes/100 WBC Auto (Bld) on 10-30-2023 Monocytes/100 WBC (Bld) 7.6 % [facility] Neutrophils Auto (Bld) [#/Vo l]on 10-30-2023 Neutrophils (Bld) [#/Vol] 5.78 10*3/uL 1.45-7.50 [facility] Neutrophils/100 WBC Auto (Bl d)on 10-30-2023 Neutrophils/100 WBC (Bld) 70.5 % [facility] No Panel Informationon 10-29 Estimated GFR (CKD-EPI) 89 mL/min/1.73m??? >=60 [facility] Comment on above: Estimated Glomerular Filtration [...] GFR. Prostate Specific Antigen 0.16 ng/mL <2.60 [facility] Comment on above: Total PSA test metho dology used is the Electrochemiluminescence Immunoassay by [employer]. Total PSA values by differing methodologies cannot be interchanged. Testosterone Level 78 ng/dL 193-824 [facility] Comment on above: A testosterone level in the 193-320 ng/dL range with associated clinical symptoms is considered low and may indicate hypogonadism (from NEJM 2010 363:123-135). Results >320 ng/dL are considered normal.Result rechecked. Nucleated RBC Auto (Bld) [#/ Vol]on 10-30-2023 Nucleated RBC (Bld) [#/Vol] 10*3/uL <0.01 [facility] Nucleated erythrocytes [Pres ence] in Blood by Automated counton 10-30-2023 Nucleated RBC Auto Ql (Bld) 0.0 /100{WBC} [facility] Platelet mean volume Auto (B ld) [Entitic vol]on 10-30-2023 Platelet mean volume (Bld) [Entitic vol] 9.5 fL 9.0-12.7 [facility] Platelets Auto (Bld) [#/Vol] on 10-30-2023 Platelets (Bld) [#/Vol] 192 10*3/uL 150-400 [facility] Protein [Mass/volume] in Ser um or Plasmaon 10-30-2023 Protein [Mass/Vol] 6.5 g/dL 6.3-8.0 [facility] RBC Auto (Bld) [#/Vol]on RBC (Bld) [#/Vol] 3.90 10*6/uL 4.20-6.00 [facility] Serum or plasma anion gap de terminationon 10-30-2023 Anion gap [Moles/Vol] 13 mmol/L 9-18 [facility] No Panel Informationon 10-08 Prostate Specific Antigen Total <0.13 ng/mL <=4.00 [facility] No Panel Informationon 08-28 [facility] Type of biopsy: schmidt [...] yes Amount of lidocaine used: 0.5 cc Critical [facility] hospital GLYCOHEMOGLOBIN A1Con 2022 ADA RECOMMENDATION SEE BELOW Normal [facility] Comment on above: Result Comment: ADA RECOMMENDED LIMIT 4.0 - 6.0 ADA THERAPEUTIC TARGET < 7.0 ACTION SUGGESTED > 7.0 Performed By: #### D ATA1C #### [facility] [address] [address] [address] Bharati Aguiar Glucose [Mass/Vol] 131 mg/dL Normal [facility] Comment on above: Performed By: #### D ATA1C #### [facility] [address] [address] [address] Bharati Aguiar HbA1c (Bld) [Mass fraction] 6.2 % Normal 4.5-6.2 [facility] Comment on above: Performed By: #### D ATA1C #### [facility] [address] [address] [address] Bharati Aguiar XR CSPINE OBL FLEX_EXTon [...] CYNTHIA TORRES Date: 2022-07-21 15:52 Normal [facility] GLYCOHEMOGLOBIN A1Con 2021 ADA RECOMMENDATION SEE BELOW Normal [facility] Comment on above: Result Comment: ADA RECOMMENDED LIMIT 4.0 - 6.0 ADA THERAPEUTIC TARGET < 7.0 ACTION SUGGESTED > 7.0 Performed By: #### D ATA1C #### [facility] [address] [place], [place] [address] Dr. Bharati Aguiar Glucose [Mass/Vol] 134 mg/dL Normal [place] Comment on above: Performed By: #### D ATA1C #### [facility] [address] [place], [place] [address] Dr. Bharati Aguiar HbA1c (Bld) [Mass fraction] 6.3 % Critically high 4.5-6.2 [facility] Comment on above: Performed By: #### D ATA1C #### [facility] [address] [place], [place] [address] Dr. Bharati Aguiar ECHOCARDIO M/2D COMPLETEon 1 ECHOCARDIO M/2D COMPLETE Patient: PABLO FELIX Exam Date: 04/27/2022 : 1945 Gender:M Ordering : LORA ENGLISH Admission #: [id number] Family : DR JAMAR FALL D.O. Order #: [id number] CLICK HERE TO VIEW EXAM ECHOCARDIOGRAM REPORT [...] Carreon M.D. on 04/28/2022 at 19:09 Normal [facility] GLYCOHEMOGLOBIN A1Con 2021 ADA RECOMMENDATION SEE BELOW Normal [facility] Comment on above: Result Comment: ADA RECOMMENDED LIMIT 4.0 - 6.0 ADA THERAPEUTIC TARGET < 7.0 ACTION SUGGESTED > 7.0 Performed By: #### D ATA1C ####[facility] [address] [place], [place] [address]Bw. Bharati Aguiar Glucose [Mass/Vol] 137 mg/dL Normal [facility] Comment on above: Performed By: #### D ATA1C ####[facility] [address] [place], [place] [address]Kf. Bharati Aguiar HbA1c (Bld) [Mass fraction] 6.4 % Critically high 4.5-6.2 [facility] Comment on above: Performed By: #### D ATA1C ####[facility] [address] [place], [place] [address]Be. Bharati Aguiar NM BONE SC WH BODYon [...] it was not obviously included in the [id number] of the recent CT. There are foci [...] FEDE DE JESUS Date: 2021-11-06 12:45 Normal [facility] CT CHEST W CONon 11-05-2021 [...] LUIZ UMANA Date: 2021-11-05 14:08 Normal [facility] PROF 14(COMP METB)on 022 Albumin [Mass/Vol] 3.6 g/dL Normal 3.4-5.0 [place] Comment on above: Performed By: #### C MP #### [facility] [address] [place] [address] Dr. Bharati Aguiar Albumin/Globulin [Mass ratio] 1.1 {ratio} Normal [facility] Comment on above: Performed By: #### C MP #### [facility] [address] [place] [address] Dr. Bharati Aguiar ALP [Catalytic activity/Vol] 89 U/L Normal 46-116 [facility] Comment on above: Performed By: #### C MP #### [facility] [address] [place] [address] Dr. Bharati Aguiar ALT [Catalytic activity/Vol] 33 U/L Normal 16-63 [facility] Comment on above: Performed By: #### C MP #### [facility] [address] [place] [address] Dr. Bharati Aguiar Anion gap [Moles/Vol] 12.1 mmol/L Normal [facility] Comment on above: Performed By: #### C MP #### [facility] [address] [place] [address] Dr. Bharati Aguiar AST [Catalytic activity/Vol] 19 U/L Normal 15-37 [facility] Comment on above: Performed By: #### C MP #### [facility] [address] [place] [address] Dr. Bharati Aguiar Bilirubin [Mass/Vol] 0.9 mg/dL Normal 0.2-1.3 [facility] Comment on above: Performed By: #### C MP #### [facility] [address] [place] [address] Dr. Bharati Aguiar Calcium [Mass/Vol] 8.8 mg/dL Normal 8.5-10.1 [facility] Comment on above: Performed By: #### C MP #### [facility] [address] [place] [address] Dr. Bharati Aguiar Chloride [Moles/Vol] 103 mmol/L Normal 98-107 [facility] Comment on above: Performed By: #### C MP #### [facility] [address] [address] [address] Bharati Aguiar CO2 [Moles/Vol] 28.6 mmol/L Normal 22.0-30.0 [facility] Comment on above: Performed By: #### C MP #### [facility] [address] [place] [address] Dr. Bharati Aguiar Creatinine [Mass/Vol] 0.85 mg/dL Normal 0.66-1.25 [facility] Comment on above: Performed By: #### C MP #### [facility] [address] [place] [address] Dr. Bharati Aguiar EGFR-AF COLOMBIAN >60 Normal >=60 [facility] Comment on above: Performed By: #### C MP #### [facility] [address] [place] [address] Dr. Bharati Aguiar EGFR-NON AF COLOMBIAN >60 Normal >=60 [facility] Comment on above: Performed By: #### C MP #### [facility] [address] [place] [address] Dr. Bharati Aguiar Globulin (S) [Mass/Vol] 3.4 g/dL Normal [facility] Comment on above: Performed By: #### C MP #### [facility] [address] [place] [address] Dr. Bharati Aguiar Glucose [Mass/Vol] 127 mg/dL Critically high 74-106 [facility] Comment on above: Performed By: #### C MP #### [facility] [address] [place] [address] Dr. Bharati Aguiar Potassium [Moles/Vol] 4.7 mmol/L Normal 3.4-5.0 [facility] Comment on above: Performed By: #### C MP #### [facility] [address] [place] [address] Dr. Bharati Aguiar Protein [Mass/Vol] 7.0 g/dL Normal 6.1-8.2 [place] Comment on above: Performed By: #### C MP #### [facility] [address] [address] [address] Bharati Aguiar Sodium [Moles/Vol] 139 mmol/L Normal 137-145 [place] Comment on above: Performed By: #### C MP #### [facility] [address] [address] [address] Bharati Aguiar Urea nitrogen [Mass/Vol] 18.0 mg/dL Normal 7.0-18.0 [facility] Comment on above: Performed By: #### C MP #### [facility] [address] [address] [address] Bharati Aguiar Urea nitrogen/Creatinin e [Mass ratio] 21.2 mg/mg Normal [facility] Comment on above: Performed By: #### C MP #### [facility] [address] [address] [address] Bharati Aguiar Vital Signs Date Time Vital Sign Value Performing Clinician Facility 09-02-2024 09:44-0500 Body height 168.91 cm [facility] 09-02-2024 09:44-0500 Body mass index (BMI) [Ratio] 32.4 kg/m2 [facility] 09-02-2024 09:44-0500 Body weight 92.53 kg [facility] 09-02-2024 09:44-0500 Diastolic blood pressure 80 mm[Hg] [facility] 09-02-2024 09:44-0500 Heart rate 46 /min [facility] 09-02-2024 09:44-0500 Respiratory rate 12 /min [facility] 09-02-2024 09:44-0500 Systolic blood pressure 130 mm[Hg] [facility] 08-08-2024 09:07-0500 Body height 167.6 cm Christo Howard APRN.CNP Work Phone: [facility] 08-08-2024 09:07-0500 Body mass index (BMI) [Ratio] 33.82 kg/m2 Christo Howard APRN.LOGGER Work Phone: [facility] 08-08-2024 09:07-0500 Body temperature 97.9 [degF] Christo Howard APRN.LOGGER Work Phone: [facility] 08-08-2024 09:07-0500 Body weight 95 kg Christo Howard APRN.LOGGER Work Phone: [facility] 08-08-2024 09:07-0500 Diastolic blood pressure 56 mm[Hg] Christo Howard APRN.LOGGER Work Phone: [facility] 08-08-2024 09:07-0500 Heart rate 57 /min Christo Howard APRN.LOGGER Work Phone: [facility] 08-08-2024 09:07-0500 Respiratory rate 16 /min Christo Howard APRN.LOGGER Work Phone: [facility] 08-08-2024 09:07-0500 SaO2% (BldA) [Mass fraction] 99 % Christo Howard APRN.LOGGER Work Phone: [facility] 08-08-2024 09:07-0500 Systolic blood pressure 149 mm[Hg] Christo Howard APRN.LOGGER Work Phone: [facility] 06-10-2024 14:25-0500 Body height 168.91 cm [facility] 06-10-2024 14:25-0500 Body mass index (BMI) [Ratio] 32.8 kg/m2 [facility] 06-10-2024 14:25-0500 Body weight 93.55 kg [facility] 06-10-2024 14:25-0500 Diastolic blood pressure 79 mm[Hg] [facility] 06-10-2024 14:25-0500 Heart rate 61 /min [facility] 06-10-2024 14:25-0500 Respiratory rate 12 /min [facility] 06-10-2024 14:25-0500 Systolic blood pressure 153 mm[Hg] [facility] 05-09-2024 08:52-0400 Body mass index (BMI) [Ratio] 32.79 kg/m2 Marco A Esqueda MD Work Phone: [facility] 05-09-2024 08:52-0400 Body temperature 97.3 [degF] Marco A Esqueda MD Work Phone: [facility] 05-09-2024 08:52-0400 Body weight 92.1 kg Marco A Esqueda MD Work Phone: [facility] 05-09-2024 08:52-0400 Diastolic blood pressure 62 mm[Hg] Marco A Esqueda MD Work Phone: [facility] 05-09-2024 08:52-0400 Heart rate 62 /min Marco A Esqueda MD Work Phone: [facility] 05-09-2024 08:52-0400 Respiratory rate 16 /min Marco A Esqueda MD Work Phone: [facility] 05-09-2024 08:52-0400 SaO2% (BldA) [Mass fraction] 99 % Marco A Esqueda MD Work Phone: [facility] 05-09-2024 08:52-0400 Systolic blood pressure 141 mm[Hg] Marco A Esqueda MD Work Phone: [facility] 04-19-2024 08:15-0400 Blood Pressure Location Anthony SCRUGGS [facility] [place] 04-19-2024 08:15-0400 Body temperature 98.6 [degF] Anthony SCRUGGS [facility] [place] 04-19-2024 08:15-0400 Diastolic blood pressure 69 mm[Hg] Anthony SCRUGGS [facility] [place] 04-19-2024 08:15-0400 Heart rate 64 /min Anthony SCRUGGS [facility] [place] 04-19-2024 08:15-0400 Respiratory rate 17 /min Anthony SCRUGGS [facility] [place] 04-19-2024 08:15-0400 Systolic blood pressure 129 mm[Hg] Anthony SCRUGGS [facility] [place] 03-26-2024 08:37-0400 Body height 168.91 cm [facility] 03-26-2024 08:37-0400 Body mass index (BMI) [Ratio] 33 kg/m2 [facility] 03-26-2024 08:37-0400 Body weight 94.12 kg [facility] 03-26-2024 08:37-0400 Diastolic blood pressure 80 mm[Hg] [facility] 03-26-2024 08:37-0400 Heart rate 52 /min [facility] 03-26-2024 08:37-0400 Respiratory rate 12 /min [facility] 03-26-2024 08:37-0400 Systolic blood pressure 130 mm[Hg] [facility] 02-02-2024 11:06-0400 Body height 167.6 cm Lynne Gross FOUNTAIN ATTENDANT.LOGGER Work Phone: [facility] 02-02-2024 11:06-0400 Body mass index (BMI) [Ratio] 33.36 kg/m2 Lynne Gross FOUNTAIN ATTENDANT.LOGGER Work Phone: [facility] 02-02-2024 11:06-0400 Body temperature 97.3 [degF] Lynne Gross FOUNTAIN ATTENDANT.LOGGER Work Phone: [facility] 02-02-2024 11:06-0400 Body weight 93.7 kg Lynne Gross FOUNTAIN ATTENDANT.LOGGER Work Phone: [facility] 02-02-2024 11:06-0400 Diastolic blood pressure 54 mm[Hg] Lynne Gross FOUNTAIN ATTENDANT.LOGGER Work Phone: [facility] 02-02-2024 11:06-0400 Heart rate 52 /min Lynne Gross FOUNTAIN ATTENDANT.LOGGER Work Phone: [facility] 02-02-2024 11:06-0400 Respiratory rate 16 /min Lynne Rajan APRN.LOGGER Work Phone: [facility] 02-02-2024 11:06-0400 SaO2% (BldA) [Mass fraction] 98 % Lynne Rajan APRN.LOGGER Work Phone: [facility] 02-02-2024 11:06-0400 Systolic blood pressure 137 mm[Hg] Lynne Rajan APRN.LOGGER Work Phone: [facility] 11-23-2023 08:38-0400 Body height 168.91 cm [facility] 11-23-2023 08:38-0400 Body mass index (BMI) [Ratio] 33.2 kg/m2 [facility] 11-23-2023 08:38-0400 Body weight 94.8 kg [facility] 11-23-2023 08:38-0400 Diastolic blood pressure 69 mm[Hg] [facility] 11-23-2023 08:38-0400 Heart rate 48 /min [facility] 11-23-2023 08:38-0400 Respiratory rate 12 /min [facility] 11-23-2023 08:38-0400 Systolic blood pressure 130 mm[Hg] [facility] 11-02-2023 09:14-0400 Body height 167.6 cm Christo Howard APRN.LOGGER Work Phone: [facility] 11-02-2023 09:14-0400 Body temperature 97.81 [degF] Christo Howard APRN.LOGGER Work Phone: [facility] 11-02-2023 09:14-0400 Body weight 92.9 kg Christo Howard APRN.LOGGER Work Phone: [facility] 11-02-2023 09:14-0400 Diastolic blood pressure 44 mm[Hg] Christo Howard APRN.LOGGER Work Phone: [facility] 11-02-2023 09:14-0400 Heart rate 56 /min Christo Duke FOUNTAIN ATTENDANT.LOGGER Work Phone: [facility] 11-02-2023 09:14-0400 Respiratory rate 16 /min Christo Howard APRN.LOGGER Work Phone: [facility] 11-02-2023 09:14-0400 SaO2% (BldA) [Mass fraction] 97 % Christo Howard FOUNTAIN ATTENDANT.LOGGER Work Phone: [facility] 11-02-2023 09:14-0400 Systolic blood pressure 123 mm[Hg] Christo Howard APRN.LOGGER Work Phone: [facility] 10-20-2023 09:05-0400 Blood Pressure Location Anthony SCRUGGS [facility] [place] 10-20-2023 09:05-0400 Diastolic blood pressure 64 mm[Hg] Anthony SCRUGGS [facility] [place] 10-20-2023 09:05-0400 Heart rate 53 /min Anthony SCRUGGS [facility] [place] 10-20-2023 09:05-0400 Respiratory rate 16 /min Anthony SCRUGGS [facility] [place] 10-20-2023 09:05-0400 Systolic blood pressure 110 mm[Hg] Anthony SCRUGGS [facility] [place] 09-12-2023 14:130500 Body height 168.91 cm [facility] 09-12-2023 14:13-0500 Body mass index (BMI) [Ratio] 33.4 kg/m2 [facility] 09-12-2023 14:13-0500 Body weight 95.42 kg [facility] 09-12-2023 14:13-0500 Diastolic blood pressure 84 mm[Hg] [facility] 09-12-2023 14:13-0500 Heart rate 56 /min [facility] 09-12-2023 14:13-0500 Respiratory rate 12 /min [facility] 09-12-2023 14:13-0500 Systolic blood pressure 143 mm[Hg] [facility] 08-24-2023 08:30-0500 Body height 168.91 cm Jamar Ball Other [facility] [employer] Other 08-24-2023 08:30-0500 Body mass index (BMI) [Ratio] 34.08 kg/m2 Jamar Ball Other [employer] Other 08-24-2023 08:30-0500 Body weight 97.25 kg Jamar Ball Other [employer] Other 08-24-2023 08:30-0500 Diastolic blood pressure 81 mm[Hg] Jamar Ball Other [employer] Other 08-24-2023 08:30-0500 Respiratory rate 12 /min Jamar Ball Other [employer] Other 08-24-2023 08:30-0500 Systolic blood pressure 125 mm[Hg] Jamar Ball Other [employer] Other 05-30-2023 15:00-0500 Body height 168.91 cm Jamar Ball Other [employer] Other 05-30-2023 15:00-0500 Body mass index (BMI) [Ratio] 32.84 kg/m2 Jamar Ball Other [employer] Other 05-30-2023 15:00-0500 Body weight 93.71 kg Jamar Ball Other [employer] Other 05-30-2023 15:00-0500 Diastolic blood pressure 66 mm[Hg] Jamar Ball Other [employer] Other 05-30-2023 15:00-0500 Respiratory rate 12 /min Jamar Ball Other [employer] Other 05-30-2023 15:00-0500 Systolic blood pressure 141 mm[Hg] Jamar Ball Other [employer] Other 05-01-2023 09:45-0400 Body height 168.91 cm Jamar Ball Other [employer] Other 05-01-2023 09:45-0400 Body mass index (BMI) [Ratio] 32.14 kg/m2 Jamar Ball Other [employer] Other 05-01-2023 09:45-0400 Body weight 91.72 kg Jamar Ball Other [employer] Other 05-01-2023 09:45-0400 Diastolic blood pressure 62 mm[Hg] Jamar Ball Other [employer] Other 05-01-2023 09:45-0400 Respiratory rate 12 /min Jamar Ball Other [employer] Other 05-01-2023 09:45-0400 Systolic blood pressure 129 mm[Hg] Jamar Ball Other [employer] Other 04-27-2023 09:23-0400 Diastolic blood pressure 49 mm[Hg] Christo Howard APRN.LOGGER Work Phone: [facility] 04-27-2023 09:23-0400 Heart rate 50 /min Christo Howard APRN.LOGGER Work Phone: [facility] 04-27-2023 09:23-0400 Systolic blood pressure 141 mm[Hg] Christo Howard APRN.LOGGER Work Phone: [facility] 04-27-2023 09:20-0400 Body height 167.6 cm Christo Howard FOUNTAIN ATTENDANT.LOGGER Work Phone: [facility] 04-27-2023 09:20-0400 Body temperature 97 [degF] Christo Howard FOUNTAIN ATTENDANT.LOGGER Work Phone: [facility] 04-27-2023 09:20-0400 Body weight 92.53 kg Christo Howard FOUNTAIN ATTENDANT.LOGGER Work Phone: [facility] 04-27-2023 09:20-0400 Respiratory rate 16 /min Christo Howard FOUNTAIN ATTENDANT.LOGGER Work Phone: [facility] 04-27-2023 09:20-0400 SaO2% (BldA) [Mass fraction] 100 % Christo Howard FOUNTAIN ATTENDANT.LOGGER Work Phone: [facility] 04-17-2023 08:45-0400 Blood Pressure Location Anthony SCRUGGS [facility] [place] 04-17-2023 08:45-0400 Diastolic blood pressure 68 mm[Hg] Anthony SCRUGGS [facility] [place] 04-17-2023 08:45-0400 Heart rate 62 /min Anthony SCRUGGS [facility] [place] 04-17-2023 08:45-0400 Respiratory rate 16 /min Anthony SCRUGGS [facility] [place] 04-17-2023 08:45-0400 Systolic blood pressure 130 mm[Hg] Anthony SCRUGGS [facility] [place] 04-05-2023 13:45-0400 Body height 168.91 cm Jamar Fall Other [employer] Other 04-05-2023 13:45-0400 Body mass index (BMI) [Ratio] 32.46 kg/m2 Jamar Ball Other [employer] Other 04-05-2023 13:45-0400 Body weight 92.63 kg Jamar Ball Other [employer] Other 04-05-2023 13:45-0400 Diastolic blood pressure 67 mm[Hg] Jamar Ball Other [employer] Other 04-05-2023 13:45-0400 Respiratory rate 12 /min Jamar Ball Other [employer] Other 04-05-2023 13:45-0400 Systolic blood pressure 109 mm[Hg] Jamar Ball Other [employer] Other 03-15-2023 08:45-0400 Body height 168.91 cm Jamar Ball Other [employer] Other 03-15-2023 08:45-0400 Body mass index (BMI) [Ratio] 32.81 kg/m2 Jamar Ball Other [employer] Other 03-15-2023 08:45-0400 Body weight 93.62 kg Jamar Ball Other [employer] Other 03-15-2023 08:45-0400 Diastolic blood pressure 69 mm[Hg] Jamar Ball Other [employer] Other 03-15-2023 08:45-0400 Respiratory rate 12 /min Jamar Ball Other [employer] Other 03-15-2023 08:45-0400 Systolic blood pressure 131 mm[Hg] Jamar Ball Other [employer] Other 02-02-2023 09:32-0400 Body height 167.6 cm Marco A Esqueda MD Work Phone: [facility] 02-02-2023 09:32-0400 Body temperature 97.2 [degF] Marco A Esqueda MD Work Phone: [facility] 02-02-2023 09:32-0400 Body weight 96.62 kg Marco A Esqueda MD Work Phone: [facility] 02-02-2023 09:32-0400 Diastolic blood pressure 43 mm[Hg] Marco A Esqueda MD Work Phone: [facility] 02-02-2023 09:32-0400 Heart rate 50 /min Marco A Esqueda MD Work Phone: [facility] 02-02-2023 09:32-0400 Respiratory rate 16 /min Marco A Esqueda MD Work Phone: [facility] 02-02-2023 09:32-0400 SaO2% (BldA) [Mass fraction] 97 % Marco A Esqueda MD Work Phone: [facility] 02-02-2023 09:32-0400 Systolic blood pressure 131 mm[Hg] Marco A Esqueda MD Work Phone: [facility] 11-10-2022 09:30-0400 Body height 167.6 cm Christo Howard APRN.LOGGER Work Phone: [facility] 11-10-2022 09:30-0400 Body temperature 97.11 [degF] Christo Howard APRN.LOGGER Work Phone: [facility] 11-10-2022 09:30-0400 Body weight 96.44 kg Christo Howard APRN.LOGGER Work Phone: [facility] 11-10-2022 09:30-0400 Diastolic blood pressure 68 mm[Hg] Christo Howard APRN.LOGGER Work Phone: [facility] 11-10-2022 09:30-0400 Heart rate 54 /min Christo Howard APRN.LOGGER Work Phone: [facility] 11-10-2022 09:30-0400 Respiratory rate 16 /min Christo Howard APRN.LOGGER Work Phone: [facility] 11-10-2022 09:30-0400 SaO2% (BldA) [Mass fraction] 98 % Christo Howard APRN.LOGGER Work Phone: [facility] 11-10-2022 09:30-0400 Systolic blood pressure 134 mm[Hg] Christo Howard APRN.LOGGER Work Phone: [facility] 09-16-2022 08:30-0500 Body height 168.91 cm Jamar Ball Other [employer] Other 09-16-2022 08:30-0500 Body mass index (BMI) [Ratio] 33.16 kg/m2 Jamar Ball Other [employer] Other 09-16-2022 08:30-0500 Body weight 94.62 kg Jamar Ball Other [employer] Other 09-16-2022 08:30-0500 Diastolic blood pressure 78 mm[Hg] Jamar Ball Other [employer] Other 09-16-2022 08:30-0500 Respiratory rate 12 /min Jamar Ball Other [employer] Other 09-16-2022 08:30-0500 Systolic blood pressure 116 mm[Hg] Jamar Ball Other [employer] Other 09-09-2022 08:30-0500 Body height 168.91 cm Jamar Ball Other [employer] Other 09-09-2022 08:30-0500 Body mass index (BMI) [Ratio] 33.45 kg/m2 Jamar Ball Other [employer] Other 09-09-2022 08:30-0500 Body weight 95.44 kg Jamar Ball Other [employer] Other 09-09-2022 08:30-0500 Diastolic blood pressure 76 mm[Hg] Jamar Ball Other [employer] Other 09-09-2022 08:30-0500 Respiratory rate 12 /min Jamar Ball Other [employer] Other 09-09-2022 08:30-0500 Systolic blood pressure 118 mm[Hg] Jamar Ball Other [employer] Other 09-09-2022 07:30-0500 Body height 168.91 cm Jamar Ball Other [employer] Other 09-09-2022 07:30-0500 Body mass index (BMI) [Ratio] 33.45 kg/m2 Jamar Ball Other [employer] Other 09-09-2022 07:30-0500 Body weight 95.44 kg Jamar Ball Other [employer] Other 09-09-2022 07:30-0500 Diastolic blood pressure 76 mm[Hg] Jamar Ball Other [employer] Other 09-09-2022 07:30-0500 Respiratory rate 12 /min Jamar Ball Other [employer] Other 09-09-2022 07:30-0500 Systolic blood pressure 118 mm[Hg] Jamar Ball Other [employer] Other 08-11-2022 09:24-0500 Body height 167.6 cm Marco A Esqueda MD Work Phone: [facility] 08-11-2022 09:24-0500 Body temperature 97 [degF] Marco A Esqueda MD Work Phone: [facility] 08-11-2022 09:24-0500 Body weight 96.44 kg Mraco A Esqueda MD Work Phone: [facility] 08-11-2022 09:24-0500 Diastolic blood pressure 56 mm[Hg] Marco A Esqueda MD Work Phone: [facility] 08-11-2022 09:24-0500 Heart rate 53 /min Marco A Esqueda MD Work Phone: [facility] 08-11-2022 09:24-0500 Respiratory rate 16 /min Marco A Esqueda MD Work Phone: [facility] 08-11-2022 09:24-0500 SaO2% (BldA) [Mass fraction] 97 % Marco A Esqueda MD Work Phone: [facility] 08-11-2022 09:24-0500 Systolic blood pressure 129 mm[Hg] Marco A Esqueda MD Work Phone: [facility] 07-21-2022 15:30-0500 Body height 168.91 cm Jamar Ball Other [employer] Other 07-21-2022 15:30-0500 Body mass index (BMI) [Ratio] 34.18 kg/m2 Jamar Ball Other [employer] Other 07-21-2022 15:30-0500 Body weight 97.52 kg Jamar Ball Other [employer] Other 07-21-2022 15:30-0500 Diastolic blood pressure 76 mm[Hg] Jamar Ball Other [employer] Other 07-21-2022 15:30-0500 Respiratory rate 16 /min Jamar Ball Other [employer] Other 07-21-2022 15:30-0500 Systolic blood pressure 118 mm[Hg] Ajmar Ball Other [facility] [employer] Other 05-13-2022 09:07-0400 Blood Pressure Location Anthonycindy SCRUGGS [facility] [place] 05-13-2022 09:07-0400 Diastolic blood pressure 72 mm[Hg] Anthonycindy SCRUGGS [facility] [place] 05-13-2022 09:07-0400 Heart rate 55 /min Anthony SCRUGGS [facility] [place] 05-13-2022 09:07-0400 Respiratory rate 16 /min Anthonycindy SCRUGGS [facility] [place] 05-13-2022 09:07-0400 Systolic blood pressure 108 mm[Hg] Anthonycindy SCRUGGS [facility] [place] 05-12-2022 10:41-0400 Body temperature 97.81 [degF] LUAN Khan MD Work Phone: [facility] 05-12-2022 10:41-0400 Body weight 95.07 kg LUAN Khan MD Work Phone: [facility] 05-12-2022 10:41-0400 Diastolic blood pressure 42 mm[Hg] LUAN Khan MD Work Phone: [facility] 05-12-2022 10:41-0400 Heart rate 51 /min LUAN Khan MD Work Phone: [facility] 05-12-2022 10:41-0400 Respiratory rate 18 /min LUAN Khan MD Work Phone: [facility] 05-12-2022 10:41-0400 SaO2% (BldA) [Mass fraction] 99 % LUAN Khan MD Work Phone: [facility] 05-12-2022 10:41-0400 Systolic blood pressure 134 mm[Hg] LUAN Khan MD Work Phone: [facility] 02-17-2022 09:36-0400 Body height 167.6 cm Marco A Esqueda MD Work Phone: [facility] 02-17-2022 09:36-0400 Body temperature 97.9 [degF] Marco A Esqueda MD Work Phone: [facility] 02-17-2022 09:36-0400 Body weight 97.07 kg Marco A Esqueda MD Work Phone: [facility] 02-17-2022 09:36-0400 Diastolic blood pressure 58 mm[Hg] Marco A Esqueda MD Work Phone: [facility] 02-17-2022 09:36-0400 Heart rate 63 /min Marco A Esqueda MD Work Phone: [facility] 02-17-2022 09:36-0400 Respiratory rate 16 /min Marco A Esqueda MD Work Phone: [facility] 02-17-2022 09:36-0400 SaO2% (BldA) [Mass fraction] 99 % Marco A Esqueda MD Work Phone: [facility] 02-17-2022 09:36-0400 Systolic blood pressure 133 mm[Hg] Marco A Esqueda MD Work Phone: [facility] 11-18-2021 10:50-0400 Body temperature 97.7 [degF] [facility] [place] Work Phone: [facility] 11-18-2021 10:50-0400 Diastolic blood pressure 63 mm[Hg] [facility] [place] Work Phone: [facility] 11-18-2021 10:50-0400 Heart rate 60 /min [facility] [place] Work Phone: [facility] 11-18-2021 10:50-0400 Respiratory rate 18 /min [facility] [place] Work Phone: [facility] 11-18-2021 10:50-0400 SaO2% (BldA) [Mass fraction] 95 % [facility] [place] Work Phone: [facility] 11-18-2021 10:50-0400 Systolic blood pressure 139 mm[Hg] [facility] [place] Work Phone: [facility] 11-11-2021 13:58-0400 Body height 167.6 cm Marco A Esqueda MD Work Phone: [facility] 11-11-2021 13:58-0400 Body temperature 97.39 [degF] Marco A Esqueda MD Work Phone: [facility] 11-11-2021 13:58-0400 Body weight 98.97 kg Marco A Esqueda MD Work Phone: [facility] 11-11-2021 13:58-0400 Diastolic blood pressure 54 mm[Hg] Marco A Esqueda MD Work Phone: [facility] 11-11-2021 13:58-0400 Heart rate 68 /min Marco A Esqueda MD Work Phone: [facility] 11-11-2021 13:58-0400 Respiratory rate 16 /min Marco A Esqueda MD Work Phone: [facility] 11-11-2021 13:58-0400 SaO2% (BldA) [Mass fraction] 98 % Marco A Esqueda MD Work Phone: [facility] 11-11-2021 13:58-0400 Systolic blood pressure 130 mm[Hg] Marco A Esqueda MD Work Phone: [facility] 11-08-2021 13:03-0400 Blood Pressure Location Anthony SCRUGGS [facility] [place] 11-08-2021 13:03-0400 Diastolic blood pressure 60 mm[Hg] Anthony SCRUGGS [facility] [place] 11-08-2021 13:03-0400 Heart rate 61 /min Anthonycindy SCRUGGS [facility] [place] 11-08-2021 13:03-0400 Systolic blood pressure 135 mm[Hg] Anthony SCRUGGS [facility] Encounters Encounter Date Encounter Type Care Provider Facility Start: 09-29-2025 ambulatory Anthony SCRUGGS Facili ty: [place] Start: 09-22-2025 ambulatory Anthony Bloomi ty: [facility] Start: 03-31-2025 End: 03-31-2025 ambulatory Atnhony SCRUGGS Facility:[facility] [place] Start: 03-31-2025 End: 03-31-2025 Patient encounter procedure Anthony SCRUGGS [facility] [place] Start: 03-20-2025 End: 03-20-2025 ambulatory [facility] Start: 03-20-2025 End: 03-20-2025 Encounter for general adult medical examination without abnormal findings [facility] Start: 02-25-2025 End: 02-25-2025 [employer] Long Boo 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 [facility] Start: 02-25-2025 End: 02-25-2025 [employer]gallheet Long Boo 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 Work Phone: [facility] Start: 02-25-2025 End: 02-25-2025 Office outpatient visit 15 minutes Long Boo 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 Work Phone: [facility] [facility] Comment on above: Seborrheic keratosis (Primary Dx); Melanocytic nevus of trunk; Actinic keratosis; Lentigines; Psoriasis vulgaris ; History of SCC (squamous cell carcinoma) of skin Start: 02-20-2025 End: 02-20-2025 ambulatory JAMAR FALL Facility:[facility] Start: 02-17-2025 End: 02-17-2025 [facility] Start: 2025 End: 2025 ambulatory SAUL TRACEY Facility:[facility] Start: 11-07-2024 End: 11-07-2024 ambulatory JAMAR FALL Facility:[facility] Start: 10-31-2024 End: 10-31-2024 ambulatory JAMAR FALL Facility:[facility] Start: 10-21-2024 End: 10-21-2024 ambulatory Nicole Herrera MD Facility:[facility] Start: 10-07-2024 End: 10-07-2024 ambulatory Anthony SCRUGGS Facility:[facility] Start: 10-07-2024 End: 10-07-2024 ambulatory Nicole Herrera MD Facility:[facility] Start: 09-02-2024 End: 09-02-2024 ambulatory [facility] Work Phone: Start: 09-02-2024 End: 09-02-2024 Patient encounter procedure [facility] Physician [facility] Work Phone: Start: 08-30-2024 Patient encounter procedure [facility] Start: 08-08-2024 End: 08-08-2024 ambulatory [facility] Work Phone: Hematology/Oncology Comment on above: Malignant neoplasm o f prostate (HCC) (Primary Dx) Malignant neoplasm o f prostate (HCC) (Primary Dx); Essential hypertension; Coronary artery disease involving [place] heart without angina pectoris, unspecified vessel or lesion type; Type 2 diabetes mellitus without complication, without long-term current use of insulin (HCC) Start: 08-08-2024 End: 08-08-2024 Patient encounter procedure Christo Howard APRN.CNP Work Phone: Hematology/Oncology Start: 08-01-2024 End: 01-16-2025 ambulatory JAMAR FALL Facility:[facility] Start: 08-01-2024 Non-patient / Non-visit [facility] Work Phone: Start: 07-25-2024 End: 10-16-2024 Telephone encounter Marco A Esqueda MD Work Phone: [facility] Comment on above: Lab Orders Start: 06-10-2024 End: 06-10-2024 Patient encounter procedure [facility] Work Phone: Start: 05-09-2024 End: 05-09-2024 ambulatory [facility] Work Phone: Hematology/Oncology Comment on above: Malignant neoplasm o f prostate (HCC) (Primary Dx) Start: 05-09-2024 End: 05-09-2024 Patient encounter procedure Marco A Esqueda MD Work Phone: Hematology/Oncology Start: 05-08-2024 End: 05-08-2024 Refill Aida Luo [facility] Work Phone: [facility] Comment on above: Refill Request Start: 05-03-2024 End: 05-03-2024 ambulatory JAMAR FALL Facility:[facility] Start: 04-19-2024 End: 04-19-2024 ambulatory Anthony SCRUGGS Facility:[facility] Start: 04-19-2024 End: 04-19-2024 Patient encounter procedure Anthony SCRUGGS [facility] Start: 04-01-2024 End: 04-01-2024 Refill Marco A Esqueda MD Work Phone: Hematology/Oncology Comment on above: Refill Request Start: 04-01-2024 End: 04-01-2024 Refill Aida Luo [facility] Work Phone: [facility] Comment on above: Refill Request Start: 03-29-2024 Encounter for preprocedural cardiovascular examination [facility] Start: 03-29-2024 End: 04-01-2024 ambulatory [facility] Start: 03-29-2024 End: 04-01-2024 Encounter for other preprocedural examination [facility] Start: 03-29-2024 End: 04-01-2024 Encounter for preprocedural cardiovascular examination [facility] Start: 03-26-2024 End: 03-26-2024 ambulatory [facility] Work Phone: Start: 03-26-2024 End: 03-26-2024 Patient encounter procedure [facility]ician [facility] Work Phone: Start: 02-29-2024 End: 02-29-2024 ambulatory ALEXIA FRANCO Not Available Start: 02-26-2024 End: 02-26-2024 ambulatory LONG JUÁREZJORGE Not Available Start: 02-02-2024 End: 02-02-2024 ambulatory [facility] Work Phone: Hematology/Oncology Comment on above: Malignant neoplasm o f prostate (HCC) (Primary Dx) Start: 02-02-2024 End: 02-02-2024 Patient encounter procedure Lynne Rajan APRN.LOGGER Work Phone: Hematology/Oncology Comment on above: Malignant neoplasm o f prostate (HCC) (Primary Dx) Start: 01-25-2024 Non-patient / Non-visit [facility] Physician [facility] Work Phone: Start: 11-23-2023 End: 11-23-2023 ambulatory [facility] Work Phone: Start: 11-23-2023 End: 11-23-2023 Patient encounter procedure [facility] Physician [facility] Work Phone: Start: 11-02-2023 End: 11-02-2023 ambulatory [facility] Work Phone: Hematology/Oncology Comment on above: Malignant neoplasm o f prostate (HCC) (Primary Dx) Malignant neoplasm o f prostate (HCC) (Primary Dx); Essential hypertension; Coronary artery disease involving [place] heart without angina pectoris, unspecified vessel or lesion type; Type 2 diabetes mellitus without complication, without long-term current use of insulin (HCC); Lesion of skin of right ear; Abdominal discomfort Start: 11-02-2023 End: 11-02-2023 Patient encounter procedure Christo Howard [employer]OUNT[employer] ATTEND[employer].LOGGER Work Phone: [facility] Start: 10-30-2023 Non-patient / Non-visit [facility] Work Phone: Start: 10-20-2023 End: 10-20-2023 Patient encounter procedure Antohny SCRUGGS [facility] Start: 10-09-2023 Non-patient / Non-visit [facility] Work Phone: Start: 09-28-2023 End: 09-28-2023 ambulatory PABLO CHRISTINA Not Available Start: 09-12-2023 End: 09-12-2023 Patient encounter procedure [facility] Work Phone: Start: 09-06-2023 Non-patient / Non-visit [facility] Work Phone: Start: 08-28-2023 Bamboo flowsheet [address] A [address] 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 Work Phone: [facility] Start: 08-28-2023 Bamboo flowsheet [address] 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 Work Phone: [facility] Start: 08-28-2023 End: 08-28-2023 Patient encounter procedure Long Boo 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 Work Phone: [facility] Comment on above: Neoplasm of unspecif ied behavior of bone, soft tissue, and skin; Actinic keratosis Start: 08-28-2023 End: 08-28-2023 ambulatory LONG BOO Not Available Start: 08-24-2023 End: 08-24-2023 ambulatory Jamar Fall Other [facility] Other Start: 08-24-2023 Patient encounter procedure Jamar Fall [facility] Start: 08-04-2023 End: 08-04-2023 ambulatory Jamar Fall Other [facility] Other Start: 08-04-2023 Telephone encounter Jamar EDMONDS [facility] Start: 06-05-2023 Telephone encounter Jamar EDMONDS [facility] Start: 06-05-2023 End: 06-05-2023 ambulatory EMELINA LOUIS [facility] Other Start: 05-30-2023 End: 05-30-2023 ambulatory Jamar Fall Other [facility] Other Start: 05-30-2023 Office outpatient vi sit 15 minutes Jamar Fall [facility] Start: 05-01-2023 End: 05-01-2023 ambulatory Jamar Fall Other [facility] Other Start: 05-01-2023 Office outpatient vi sit 15 minutes Jamar Fall [facility] Start: 04-27-2023 Telephone encounter Jamar EDMONDS [facility] Start: 04-27-2023 End: 04-27-2023 ambulatory [facility] Krishnan Work Phone: Hematology/Oncology Comment on above: Malignant neoplasm o f prostate (HCC) (Primary Dx) Malignant neoplasm o f prostate (HCC) (Primary Dx); Coronary artery disease involving [place] heart without angina pectoris, unspecified vessel or lesion type; Essential hypertension; Type 2 diabetes mellitus without complication, without long-term current use of insulin (HCC) Start: 04-27-2023 End: 04-27-2023 Patient encounter procedure Christo Howard APRN.CNP Work Phone: [facility] Start: 04-25-2023 End: 04-25-2023 ambulatory Jamar Fall Other [facility] Other Start: 04-25-2023 Telephone encounter Jamar Ball [facility] Start: 04-18-2023 End: 04-18-2023 ambulatory Jamar Juan David Other [employer] Other Start: 04-18-2023 Telephone encounter Jamar Ball [facility] Start: 04-17-2023 End: 04-17-2023 Patient encounter procedure Anthony R KAEL [facility] Start: 04-12-2023 End: 04-12-2023 ambulatory Jamar Juan David Other [facility] Other Start: 04-12-2023 Telephone encounter Jamar Ball [facility] Start: 04-06-2023 End: 04-06-2023 ambulatory Jamar Ball Other [facility] Other Start: 04-06-2023 Telephone encounter Jamar Ball [facility] Start: 04-05-2023 End: 04-05-2023 ambulatory Jamar Ball Other [facility] Other Start: 04-05-2023 Office outpatient vi sit 15 minutes Jamar Ball [facility] Start: 04-05-2023 Telephone encounter Jamar Ball [facility] Start: 03-15-2023 End: 03-15-2023 ambulatory Jamar Ball Other [facility] Other Start: 03-15-2023 Office outpatient vi sit 25 minutes Jamar Ball [facility] Start: 02-05-2023 End: 02-05-2023 ambulatory Jamar Ball Other [facility] Other Start: 02-05-2023 Telephone encounter Jamar Ball [facility] Start: 02-02-2023 End: 02-02-2023 ambulatory [facility] Krishnan Work Phone: Hematology/Oncology Comment on above: Malignant neoplasm o f prostate (HCC) (Primary Dx) Start: 02-02-2023 End: 02-02-2023 Patient encounter procedure Marco A Esqueda MD Work Phone: [facility] Start: 11-15-2022 End: 11-15-2022 ambulatory Jamar Fall Other [facility] Other Start: 11-15-2022 Encounter by [employer] Jamar Fall [facility] Start: 11-11-2022 End: 11-11-2022 ambulatory Jamar Fall Other [facility] Other Start: 11-11-2022 Encounter by [employer] Jamar Fall [facility] Start: 11-10-2022 End: 11-10-2022 ambulatory [facility] Ariella Work Phone: Hematology/Oncology Comment on above: Malignant neoplasm o f prostate (HCC) (Primary Dx) Malignant neoplasm o f prostate (HCC) (Primary Dx); Coronary artery disease involving [place] heart without angina pectoris, unspecified vessel or lesion type; Essential hypertension; Type 2 diabetes mellitus without complication, without long-term current use of insulin (HCC) Start: 11-10-2022 End: 11-10-2022 Patient encounter procedure Christo Howard APRN.CNP Work Phone: [facility] Start: 10-25-2022 End: 10-26-[address] ANTHONY SCRUGGS . Facility: Start: 09-16-2022 End: 09-16-2022 ambulatory Jamar Fall Other [facility] Other Start: 09-16-2022 Office outpatient vi sit 15 minutes Jamar Fall [facility] Start: 09-09-2022 End: 09-09-2022 ambulatory Jamar Fall Other [facility] Other Start: 09-09-2022 Patient encounter procedure Jamar Fall [facility] Start: 09-05-2022 End: 09-06-2022 ambulatory NONE LISTED REQUEST Facility:[facility] Start: 08-11-2022 End: 08-11-2022 ambulatory [facility] Ariella Work Phone: Hematology/Oncology Comment on above: Malignant neoplasm o f prostate (HCC) (Primary Dx) Malignant neoplasm o f prostate (HCC) (Primary Dx); Bone metastasis (HCC); Coronary artery disease involving [place] heart without angina pectoris, unspecified vessel or lesion type; Essential hypertension; Type 2 diabetes mellitus without complication, without long-term current use of insulin (HCC) Start: 08-11-2022 End: 08-11-2022 Patient encounter procedure Marco A Esqueda MD Work Phone: [facility] Start: 07-21-2022 End: 07-22-[address] JAMAR FALL [employer] Other Start: 07-21-2022 Office outpatient vi sit 15 minutes Jamar Fall [facility] Start: 07-21-2022 Patient encounter procedure Jamar Fall [facility] Start: 07-21-2022 Telephone encounter Jamar Fall [facility] Start: 05-27-2022 End: 05-28-2022 ambulatory NONE LISTED REQUEST Facility: Start: 05-13-2022 End: 05-13-2022 Patient encounter procedure Anthony SCRUGGS [facility] Start: 05-12-2022 End: 05-12-2022 Patient encounter procedure Zach Khan MD Work Phone: Radiation Oncology Comment on above: Malignant neoplasm o f prostate (HCC) (Primary Dx) Start: 05-12-2022 End: 05-12-2022 ambulatory [facility] Krishnan Work Phone: Hematology/Oncology Comment on above: Malignant neoplasm o f prostate (HCC) (Primary Dx) Start: 05-05-2022 End: 05-06-[address] ANTHONY SCRUGGS . Facility: Start: 05-02-2022 Telephone encounter Christo goldberg APRN.CNP [...] encounter procedure Anthony SCRUGGS [facility] Start: 11-05-2021 End: 11-06-[address] MARCO A ESQUEDA Facility:[facility] Start: 11-04-2021 ambulatory Clementine lee RN Work Phone: Hematology/Oncology Comment on above: Oral Anti-cancer Age nt Education (Enzalutamide) Start: 11-04-2021 Telephone encounter Aida Coles [facility] Work Phone: Hematology/Oncology Comment on above: [...] 07-22-2021 Adult health examination Bam Fall Other [facility] Other Procedures Date Procedure Procedure Detail Performing Clinician Start: 02-25-2025 CRYOTHERAPY SKIN LESION Long A Felter 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 Work Phone: Start: 08-28-2023 CRYOTHERAPY SKIN LESION Long A Felter 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 Work Phone: Start: 08-28-2023 SKIN / NAIL BIOPSY Windy lie A Maryer 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 Work Phone: Start: 07-17-2023 Decompression of med anthony nerve Anthony SCRUGGS Start: 10-25-[address] JESE FALL Comment on above: Performed By: #### P SAD #### [facility] [address] [place], [place] [address] Dr. Bharati Aguiar Start: 05-05-[address] JESE FALL Comment on above: Performed By: #### P SAD ####[facility] [id number] [place], [place] [address]LgDr. Bharati Aguiar Start: 02-16-2022 Adult depression scr [...] DTaP,Tdap,Td Vaccine (6 - Td or Tdap) [facility] Start: 08-01-2027 Diabetes Screening Diabetes Screening [facility] Start: 05-03-2027 Diabetes Screening Diabetes Screening [facility] Start: 01-24-2027 Diabetes Screening Diabetes Screening [facility] Start: 10-29-2026 Diabetes Screening Diabetes Screening [facility] Start: 04-24-2026 Diabetes Screening Diabetes Screening [facility] Start: 02-26-2026 End: 02-26-2026 Patient encounter procedure 02/26/2026 10:25 AM EDT Office Visit [facility] [address] [place] [phone] Long Boo, 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 [address] [place] [address] [facility] Start: 02-02-2026 DIABETES SCREEN DIABETES SCREEN [facility] Start: 11-10-2025 DIABETES SCREEN DIABETES SCREEN [facility] Start: 08-11-2025 DIABETES SCREEN DIABETES SCREEN [facility] Start: 05-12-2025 DIABETES SCREEN DIABETES SCREEN [facility] Start: 03-17-2025 Influenza vaccination Influenza Vaccine (#1) [facility] Start: 02-25-2025 End: 02-25-2025 Patient encounter procedure 02/25/2025 10:20 AM EDT Office Visit [facility] [address] [place] [id number] Long Boo, 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 [address] [place] [address] Arrived [facility] Comment on above: Arrived Start: 02-17-2025 DIABETES SCREEN DIABETES SCREEN [facility] Start: 11-11-2024 DIABETES SCREEN DIABETES SCREEN [facility] Start: 11-07-2024 End: 11-07-2024 Follow-up encounter Hematology/Oncology Comment on above: 3 month lab follow up with xgeva inj Start: 11-06-2024 End: 02-05-2025 CBC W Auto Differential panel - Blood COMPLETE BLOOD COUNT AND DIFFERENTIAL Lab Routine Malignant neoplasm of prostate (HCC) Essential hypertension Coronary artery disease involving [place] heart without angina pectoris, unspecified vessel or lesion type Type 2 diabetes mellitus without complication, without long-term current use of insulin (HCC) Expected: 11/06/2024, Expires: 02/05/2025 [facility] Work Phone: Comment on above: Expected: 11/06/2024, Expires: Start: 11-06-2024 End: 02-05-2025 Comprehensive metabolic 2000 panel - Serum or Plasma COMPREHENSIVE METABOLIC PANEL Lab Routine Malignant neoplasm of prostate (HCC) Essential hypertension Coronary artery disease involving [place] heart without angina pectoris, unspecified vessel or lesion type Type 2 diabetes mellitus without complication, without long-term current use of insulin (HCC) Expected: 11/06/2024, Expires: 02/05/2025 [facility] Comment on above: Expected: 11/06/2024, Expires: Start: 11-06-2024 End: 02-05-2025 Prostate specific Ag [Mass/volume] in Serum or Plasma PROSTATE-SPECIFIC ANTIGEN DIAGNOSTIC Lab Routine Malignant neoplasm of prostate (HCC) Essential hypertension Coronary artery disease involving [place] heart without angina pectoris, unspecified vessel or lesion type Type 2 diabetes mellitus without complication, without long-term current use of insulin (HCC) Expected: 11/06/2024, Expires: 02/05/2025 [facility] Comment on above: Expected: 11/06/2024, Expires: Start: 10-31-2024 End: 10-31-2024 Patient encounter procedure 10/31/2024 9:00 AM EDT Office Visit [facility] [address] [place] [address] [place] [address] lab [facility] Comment on above: lab Start: 10-25-2024 Covid-19 Vaccine () Covid-19 Vaccine () [facility] Start: 08-08-2024 End: 08-08-2024 Follow-up encounter Hematology/Oncology Comment on above: 3 month lab follow up with xgeva inj Start: 08-01-2024 End: 08-01-2024 Patient encounter procedure 08/01/2024 9:00 AM EST Office Visit [facility] [address] [place] [address] 3 month labs [facility] Comment on above: 3 month labs Start: 07-17-2024 Advance Directive Discussion Advance Directive Discussion [facility] Start: 05-09-2024 End: 05-09-2024 Follow-up encounter Hematology/Oncology Comment on above: 3 month lab follow up with xgeva inj Start: 05-07-2024 End: 05-07-2024 Patient encounter procedure 05/07/2024 9:00 AM EDT Office Visit [facility] [address] [place] [address] 3 month lab follow up with xgeva inj [facility] Comment on above: 3 month lab follow up with xgeva inj Start: 05-03-2024 End: 05-03-2024 Patient encounter procedure 05/03/2024 9:00 AM EDT Office Visit [facility] [address] [place] [address] 3 month lab follow up with xgeva inj [facility] Comment on above: 3 month lab follow up with xgeva inj Start: 04-29-2024 End: 07-29-2024 CBC W Auto Differential panel - Blood COMPLETE BLOOD COUNT AND DIFFERENTIAL Lab Routine Malignant neoplasm of prostate (HCC) Expected: 04/29/2024, Expires: 07/29/2024 [facility] Work Phone: Comment on above: Expected: 04/29/2024, Expires: Start: 04-29-2024 End: 07-29-2024 Comprehensive metabolic 2000 panel - Serum or Plasma COMPREHENSIVE METABOLIC PANEL Lab Routine Malignant neoplasm of prostate (HCC) Expected: 04/29/2024, Expires: 07/29/2024 [facility] Comment on above: Expected: 04/29/2024, Expires: Start: 04-29-2024 End: 07-29-2024 Prostate specific Ag [Mass/volume] in Serum or Plasma PROSTATE-SPECIFIC ANTIGEN DIAGNOSTIC Lab Routine Malignant neoplasm of prostate (HCC) Expected: 04/29/2024, Expires: 07/29/2024 [facility] Comment on above: Expected: 04/29/2024, Expires: Start: 03-17-2024 Covid-19 Vaccine () Covid-19 Vaccine () [facility] Start: 03-17-2024 Influenza vaccination Influenza Vaccine (#1) [facility] Start: 02-26-2024 End: 02-26-2024 Patient encounter procedure 02/26/2024 10:10 AM EDT Office Visit [facility] [address] [place] [address] Long Boo APRN-LOGGER [address] [place] [address] [facility] Start: 11-03-2023 End: 02-02-2024 CBC W Auto Differential panel - Blood COMPLETE BLOOD COUNT AND DIFFERENTIAL Lab Routine Malignant neoplasm of prostate (HCC) Essential hypertension Coronary artery disease involving [place] heart without angina pectoris, unspecified vessel or lesion type Type 2 diabetes mellitus without complication, without long-term current use of insulin (HCC) Lesion of skin of right ear Abdominal discomfort Expected: 11/03/2023, Expires: 02/02/2024 [facility] Work Phone: Comment on above: Expected: 11/03/2023, Expires: Start: 11-03-2023 End: 02-02-2024 Comprehensive metabolic 2000 panel - Serum or Plasma COMPREHENSIVE METABOLIC PANEL Lab Routine Malignant neoplasm of prostate (HCC) Essential hypertension Coronary artery disease involving [place] heart without angina pectoris, unspecified vessel or lesion type Type 2 diabetes mellitus without complication, without long-term current use of insulin (HCC) Lesion of skin of right ear Abdominal discomfort Expected: 11/03/2023, Expires: 02/02/2024 [facility] Work Phone: Comment on above: Expected: 11/03/2023, Expires: Start: 11-03-2023 End: 02-02-2024 Prostate specific Ag [Mass/volume] in Serum or Plasma PROSTATE-SPECIFIC ANTIGEN DIAGNOSTIC Lab Routine Malignant neoplasm of prostate (HCC) Essential hypertension Coronary artery disease involving [place] heart without angina pectoris, unspecified vessel or lesion type Type 2 diabetes mellitus without complication, without long-term current use of insulin (HCC) Lesion of skin of right ear Abdominal discomfort Expected: 11/03/2023, Expires: 02/02/2024 [facility] Work Phone: Comment on above: Expected: 11/03/2023, Expires: 4 Start: 08-28-2023 End: 08-28-2023 Patient encounter procedure 08/28/2023 11:25 AM EST Office Visit [facility] [address] [place] [address] Long Boo APRN-LOGGER [address] [place] [address] Arrived [facility] Comment on above: Arrived Start: 07-28-2023 End: 09-27-2023 CBC W Auto Differential panel - Blood CBC + DIFF Lab Routine Malignant neoplasm of prostate (HCC) Coronary artery disease involving [place] heart without angina pectoris, unspecified vessel or lesion type Essential hypertension Type 2 diabetes mellitus without complication, without long-term current use of insulin (HCC) Expected: 07/28/2023, Expires: 09/27/2023 [facility] Work Phone: Comment on above: Expected: 07/28/2023, Expires: Start: 07-28-2023 End: 09-27-2023 Comprehensive metabolic 2000 panel - Serum or Plasma COMP METABOLIC PANEL Lab Routine Malignant neoplasm of prostate (HCC) Coronary artery disease involving [place] heart without angina pectoris, unspecified vessel or lesion type Essential hypertension Type 2 diabetes mellitus without complication, without long-term current use of insulin (HCC) Expected: 07/28/2023, Expires: 09/27/2023 [facility] Work Phone: Comment on above: Expected: 07/28/2023, Expires: Start: 07-28-2023 End: 09-27-2023 Prostate specific Ag [Mass/volume] in Serum or Plasma PSA/PROSTSPECAG DIAG Lab Routine Malignant neoplasm of prostate (HCC) Coronary artery disease involving [place] heart without angina pectoris, unspecified vessel or lesion type Essential hypertension Type 2 diabetes mellitus without complication, without long-term current use of insulin (HCC) Expected: 07/28/2023, Expires: 09/27/2023 [facility] Work Phone: Comment on above: Expected: 07/28/2023, Expires: 4 Start: 07-17-2023 Advance Directive Discussion Advance Directive Discussion [facility] Start: 07-17-2023 Behavioral Health Screening Behavioral Health Screening [facility] Start: 06-19-[address] [facility] Start: 05-03-2023 End: 07-03-2023 Basic metabolic 2000 panel - Serum or Plasma BASIC METABOLIC PNL Lab Routine Malignant neoplasm of prostate (HCC) Expected: 05/03/2023 (Approximate), Expires: 07/03/2023 [facility] Work Phone: Comment on above: Expected: 05/03/2023 (Approximate), Expi res: 07/03/2023 Start: 05-03-2023 End: 07-03-2023 CBC W Auto Differential panel - Blood CBC + DIFF Lab Routine Malignant neoplasm of prostate (HCC) Expected: 05/03/2023 (Approximate), Expires: 07/03/2023 [facility] Work Phone: Comment on above: Expected: 05/03/2023 (Approximate), Expi res: 07/03/2023 Start: 05-03-2023 End: 07-03-2023 Prostate specific Ag [Mass/volume] in Serum or Plasma PSA/PROSTSPECAG DIAG Lab Routine Malignant neoplasm of prostate (HCC) Expected: 05/03/2023 (Approximate), Expires: 07/03/2023 [facility] Work Phone: Comment on above: Expected: 05/03/2023 (Approximate), Expi res: 07/03/2023 Start: 05-03-2023 End: 07-03-2023 Testosterone [Mass/volume] in Serum or Plasma TESTOSTERONE TOTAL Lab Routine Malignant neoplasm of prostate (HCC) Expected: 05/03/2023 (Approximate), Expires: 07/03/2023 [facility] Work Phone: Comment on above: Expected: 05/03/2023 (Approximate), Expi res: 07/03/2023 Start: 03-17-2023 Covid-19 Vaccine () Covid-19 Vaccine () [facility] Start: 03-17-[address] [facility] Start: 02-16-2023 Adult depression screening assessment DEPRESSION SCREENING [facility] Start: 02-09-2023 End: 04-11-2023 CBC W Auto Differential panel - Blood CBC + DIFF Lab Routine Malignant neoplasm of prostate (HCC) Coronary artery disease involving [place] heart without angina pectoris, unspecified vessel or lesion type Essential hypertension Type 2 diabetes mellitus without complication, without long-term current use of insulin (HCC) Expected: 02/09/2023, Expires: 04/11/2023 [facility] Work Phone: Comment on above: Expected: 02/09/2023, Expires: Start: 02-09-2023 End: 04-11-2023 Comprehensive metabolic 2000 panel - Serum or Plasma COMP METABOLIC PANEL Lab Routine Malignant neoplasm of prostate (HCC) Coronary artery disease involving [place] heart without angina pectoris, unspecified vessel or lesion type Essential hypertension Type 2 diabetes mellitus without complication, without long-term current use of insulin (HCC) Expected: 02/09/2023, Expires: 04/11/2023 [facility] Work Phone: Comment on above: Expected: 02/09/2023, Expires: 3 Start: 02-09-2023 End: 04-11-2023 Prostate specific Ag [Mass/volume] in Serum or Plasma PSA/PROSTSPECAG DIAG Lab Routine Malignant neoplasm of prostate (HCC) Coronary artery disease involving [place] heart without angina pectoris, unspecified vessel or lesion type Essential hypertension Type 2 diabetes mellitus without complication, without long-term current use of insulin (HCC) Expected: 02/09/2023, Expires: 04/11/2023 [facility] Work Phone: Comment on above: Expected: 02/09/2023, Expires: 3 Start: 11-10-2022 Adult depression screening assessment DEPRESSION SCREENING [facility] Start: 08-22-2022 COVID-19 VACCINE (6 - Moderna series) COVID-19 VACCINE (6 - Moderna series) [facility] Start: 07-17-2022 ADVANCE DIRECTIVE DISCUSSION ADVANCE DIRECTIVE DISCUSSION [facility] Start: 07-17-2022 DEPRESSION ASSESSMENT DEPRESSION ASSESSMENT [facility] Start: 05-03-2022 Adult depression screening assessment DEPRESSION SCREENING [facility] Start: 05-03-2022 End: 07-03-2022 CBC W Auto Differential panel - Blood CBC + DIFF Lab Routine Malignant neoplasm of prostate (HCC) Expected: 05/03/2022, Expires: 07/03/2022 [facility] Work Phone: Comment on above: Expected: 05/03/2022, Expires: 2 Start: 05-03-2022 End: 07-03-2022 Comprehensive metabolic 2000 panel - Serum or Plasma COMP METABOLIC PANEL Lab Routine Malignant neoplasm of prostate (HCC) Expected: 05/03/2022, Expires: 07/03/2022 [facility] Work Phone: Comment on above: Expected: 05/03/2022, Expires: 2 Start: 05-03-2022 End: 07-03-2022 Prostate specific Ag [Mass/volume] in Serum or Plasma PSA/PROSTSPECAG DIAG Lab Routine Malignant neoplasm of prostate (HCC) Expected: 05/03/2022, Expires: 07/03/2022 [facility] Work Phone: Comment on above: Expected: 05/03/2022, Expires: 2 Start: 03-17-[address] [facility] Start: 11-02-2021 End: 01-02-2022 CBC W Auto Differential panel - Blood CBC + DIFF Lab Routine Malignant neoplasm of prostate (HCC) Expected: 11/02/2021, Expires: 01/02/2022 [facility] Work Phone: Comment on above: Expected: 11/02/2021, Expires: 2 Start: 11-02-2021 End: 01-02-2022 Comprehensive metabolic 2000 panel - Serum or Plasma COMP METABOLIC PANEL Lab Routine Malignant neoplasm of prostate (HCC) Expected: 11/02/2021, Expires: 01/02/2022 [facility] Work Phone: Comment on above: Expected: 11/02/2021, Expires: 2 Start: 09-14-2021 COVID-19 VACCINE (5 - Booster) COVID-19 VACCINE (5 - Booster) [facility] Start: 08-17-2021 COVID-19 VACCINE (4 - Booster for Moderna series) COVID-19 VACCINE (4 - Booster for Moderna series) [facility] Start: 07-17-2021 ADVANCE DIRECTIVE DISCUSSION ADVANCE DIRECTIVE DISCUSSION [facility] Start: 07-17-2021 DEPRESSION ASSESSMENT DEPRESSION ASSESSMENT [facility] Start: 02-22-2021 COVID-19 VACCINE (3 - Booster for Moderna series) COVID-19 VACCINE (3 - Booster for Moderna series) [facility] Start: 06-07-2015 PNEUMOVAX AGE 65 AND OVER WITH 5YR LOOKBACK (#1) PNEUMOVAX AGE 65 AND OVER WITH 5YR LOOKBACK (#1) [facility] Start: 06-20-2013 Urine microalbumin profile DTAP,TDAP,TD (1 - Tdap) [facility] Start: 08-22-2012 SHINGRIX VACCINE (2 of 3) SHINGRIX VACCINE (2 of 3) [facility] Start: 2006 RSV Vaccine (1 - 1-dose 60+ series) RSV Vaccine (1 - 1-dose 60+ series) [facility] Start: 02-14-1996 SHINGRIX VACCINE (1 of 2) SHINGRIX VACCINE (1 of 2) [facility] Start: 1991 COLOGUARD (FIT-DNA) COLOGUARD (FIT-DNA) [facility] Start: [address] [facility] Start: 1991 COLORECTAL CANCER SCREENING COLORECTAL CANCER SCREENING [facility] Start: [address] [facility] Start: 1991 DIABETES SCREEN DIABETES SCREEN [facility] Start: 1991 FECAL OCCULT BLOOD FECAL OCCULT BLOOD [facility] Start: [address] [facility] Start: 1981 LIPID SCREEN LIPID SCREEN [facility] Start: 02-14-1964 Anxiety Screening Anxiety Screening [facility] Start: 02-14-1964 Depression Screening Depression Screening [facility] Start: 02-14-1964 HEPATITIS C SCREENING HEPATITIS C SCREENING [facility] Start: 02-14-1964 Hepatitis C screening Hepatitis C Screening [facility] Dermatopathology exam Dermatopat hology exam Pathology and Cytology Timed Neoplasm of unspecified behavior of bone, soft tissue, and skin Release Upon Ordering for 1 Occurrences starting 08/28/2023 [facility] [employer] Work Phone: Comment on above: Release Upon Ordering for 1 Occurrences starting 08/28/2023 MR Cervical spine WO contrast [facility] US Extremity [facility] Immunizations Immunization Date Immunization Notes Care Provider Iris quinonez 03-26-2024 influenza, high dose seasonal, preservative-free [facility] 03-26-2024 influenza virus vaccine, unspecified formulation Long Boo APRN-LOGGER Work Phone: [facility] 05-01-2023 influenza virus vaccine, unspecified formulation [facility] 05-01-2023 influenza, high dose seasonal, preservative-free Jamar Fall Other [facility] 04-28-2022 influenza nasal, unspecified formulation Lab/[facility] [employer] Work Phone: [facility] 04-28-2022 influenza, high-dose , quadrivalent vaccine (FLUZONE HIGH DOSE QUADRIVALENT) Lab/[employer] Work Phone: [facility] 04-28-2022 influenza, high dose seasonal, preservative-free Jamar Fall Other [facility] 04-28-2022 influenza virus vaccine, unspecified formulation [facility] Work Phone: [facility] [place] 04-21-2022 COVID-19 booster vaccine, age 12+ yr, bivalent (MODERNA) Lab/[employer] Ariella Work Phone: [facility] Comment on above: Result Comment: 2023: [id number] 01-21-2022 COVID-19 Vaccine Moderna - Documentation Purposes Only Jamar Fall Other [facility] Comment on above: Result Comment: 2023: [id number] 05-17-2021 COVID-19 Vaccine Moderna - Documentation Purposes Only Jamar Fall Other [facility] Comment on above: Result Comment: 2023: [id number] 04-22-2021 influenza virus vaccine, split virus (incl. purified surface antigen) Jamar Fall Other [facility] 04-22-2021 influenza virus vaccine, unspecified formulation [facility] 04-16-2021 influenza nasal, unspecified formulation Marco A Esqueda MD Work Phone: [facility] 04-16-2021 influenza virus vaccine, unspecified formulation Anthony SCRUGGS [facility] [place] 09-22-2020 COVID-19 Vaccine Moderna - Documentation Purposes Only Jamar Fall Other [facility] 08-26-2020 SARS-CoV-2 (COVID-19 ) Ad26 vaccine, recombinant Anthony SCRUGGS [facility] [place] 08-24-2020 COVID-19 original vaccine, full dose, monovalent (MODERNA) Lab/[facility] Work Phone: [facility] 07-17-2020 SARS-CoV-2 (COVID-19 ) [id number] vaccine Anthony SCRUGGS [facility] [place] Comment on above: Result Comment: pt d oes not know the dates but states that he is fully vaccinated 04-23-2020 influenza virus vaccine, split virus (incl. purified surface antigen) Jamar Fall Other [facility] 04-23-2020 influenza virus vaccine, unspecified formulation [facility] 04-22-2019 influenza virus vaccine, split virus (incl. purified surface antigen) Jamar Fall Other [facility] 04-22-2019 influenza virus vaccine, unspecified formulation [facility] 04-16-2019 influenza nasal, unspecified formulation Marco A Esqueda MD Work Phone: [facility] 08-20-2018 zoster vaccine recombinant Marco A Esqueda MD Work Phone: [facility] 06-11-2018 zoster vaccine recombinant Marco A Esqueda MD Work Phone: [facility] 04-16-2018 influenza nasal, unspecified formulation Marco A Esqueda MD Work Phone: [facility] 03-27-2018 AS03 adjuvant Lab/[facility] Work Phone: [facility] 03-27-2018 influenza nasal, unspecified formulation [facility] Work Phone: [facility] 03-27-2018 influenza virus vaccine, split virus (incl. purified surface antigen) Jamar Fall Other [employer] Other 03-27-2018 influenza virus vaccine, unspecified formulation Anthonycindy SCRUGGS [facility] [place] 03-27-2018 Seasonal trivalent influenza vaccine, adjuvanted, preservative free Marc oA Esqueda MD Work Phone: [facility] 06-12-2017 pneumococcal polysaccharide vaccine, 23 valent Marco A Esqueda MD Work Phone: [facility] 06-01-2017 pneumococcal polysaccharide vaccine, 23 valent Jamar Fall Other [facility] 06-01-2017 Prevnar 20 Jamar Fall Other [facility] 05-31-2017 influenza nasal, unspecified formulation Lab/[facility] Work Phone: [facility] 05-31-2017 influenza virus vaccine, unspecified formulation Anthony SCRUGGS [facility] [place] 05-31-2017 influenza, injectabl e, quadrivalent, preservative free Marco A Esqueda MD Work Phone: [facility] 04-03-2017 influenza nasal, unspecified formulation Lab/[facility] [place] Work Phone: [facility] 04-03-2017 influenza virus vaccine, split virus (incl. purified surface antigen) Jamar Fall Other [employer] Other 04-03-2017 influenza virus vaccine, unspecified formulation Anthony SCRUGGS [facility] [place] 04-03-2017 influenza, high dose seasonal, preservative-free Marco A Esqueda MD Work Phone: [facility] 03-23-2017 influenza nasal, unspecified formulation Marco A Esqueda MD Work Phone: [facility] 04-01-2016 influenza virus vaccine, split virus (incl. purified surface antigen) Jamar Fall Other [facility] 04-01-2016 influenza virus vaccine, unspecified formulation [facility] 03-31-2016 influenza nasal, unspecified formulation Marco A Esqueda MD Work Phone: [facility] 05-11-2015 influenza nasal, unspecified formulation Marco A Esqueda MD Work Phone: [facility] 05-11-2015 influenza, seasonal, injectable, preservative free [facility] [place] Work Phone: [facility] 05-11-2015 pneumococcal conjuga te vaccine, 13 valent Marco A Esqueda MD Work Phone: [facility] 04-29-2015 pneumococcal polysaccharide vaccine, 23 valent Marco A Esqueda MD Work Phone: [facility] 06-09-2014 influenza nasal, unspecified formulation [facility] Work Phone: [facility] 06-09-2014 influenza, seasonal, injectable, preservative free Marco A Esqueda MD Work Phone: [facility] 06-19-2013 diphtheria, tetanus toxoids and acellular pertussis vaccine, unspecified formulation Marco A Esqueda MD Work Phone: [facility] 06-19-2013 tetanus and diphther ia toxoids, not adsorbed, for adult use Marco A Esqueda MD Work Phone: [facility] 05-23-2013 influenza nasal, unspecified formulation Marco A Esqueda MD Work Phone: [facility] 04-24-2013 tetanus and diphther ia toxoids, adsorbed, preservative free, for adult use (5 Lf of tetanus toxoid and 2 Lf of diphtheria toxoid) Jamar Fall Other [facility] 06-27-2012 zoster vaccine, live Marco A lake MD Work Phone: [facility] 06-11-2012 influenza nasal, unspecified formulation Marco A Esqueda MD Work Phone: [facility] 06-02-2011 influenza nasal, unspecified formulation Marco A Esqueda MD Work Phone: [facility] 06-23-2010 pneumococcal polysaccharide vaccine, 23 valent Jamar Fall Other [facility] 06-07-2010 pneumococcal polysaccharide vaccine, 23 valent Marco A Esqueda MD Work Phone: [facility] 06-07-2010 pneumococcal vaccine , unspecified formulation Marco A Esqueda MD Work Phone: [facility] 05-28-2010 influenza nasal, unspecified formulation Marco A Esqueda MD Work Phone: [facility] 01-14-2010 pneumococcal polysaccharide vaccine, 23 valent Jamar Fall Other [facility] 05-25-2009 influenza nasal, unspecified formulation Marco A Esqueda MD Work Phone: [facility] 06-09-2008 influenza nasal, unspecified formulation Marco A Esqueda MD Work Phone: [facility] 07-23-2003 influenza virus vaccine, whole virus Marco A Esqueda MD Work Phone: [facility] 01-14-2003 diphtheria, tetanus toxoids and acellular pertussis vaccine, unspecified formulation Jamar Fall Other [facility] 01-10-2003 TD(adult) unspecifie d formulation Marco A Esqueda MD Work Phone: [facility] 07-03-2002 influenza nasal, unspecified formulation Marco A Esqueda MD Work Phone: [facility] Payers Date Payer Category Payer Unknown MMO MMO MEDICARE SUPPLEMENT [id number] 2019-Present [phone] [address] [place] [address] Indemnity [id number] 2019 Unknown [id number]. [id number] 2019 Private Health Insurance [id number] 2011 Medicare MEDICARE MEDICAR E A AND B [id number] 2011-Present [phone] [address] [address] [place] [address] Medicare [id number]. [id number] 2011 Medicare [id number]. [id number] 1959 Medicare [id number] 1959 Self-pay 1959 Unknown [id number] [id number] 1946 Unknown [id number] 2.16.840.1.282621.3.579.2. 593 1946 Unknown [id number] 2.16.840.1.932022.3.579.2. 593 1946 Unknown [id number] 2.16.840.1.144004.3.579.2. 593 1946 Unknown [id number] 2.16.840.1.576951.3.579.2. 593 1946 Unknown [id number] 2.16.840.1.117075.3.579.2. 593 1946 Unknown [id number] 2.16.840.1.134950.3.579.2. 1259 1946 Unknown [id number] 2.16.840.1.330360.3.579.2. 1259 1946 Unknown [id number] 2.16.840.1.205384.3.579.2. 1259 1946 Unknown [id number] 2.16.840.1.751726.3.579.2. 1259 1946 Unknown [id number] 2.16.840.1.428244.3.579.2. 1259 1946 Unknown [id number] 2.16.840.1.924067.3.579.2. 196 1946 Unknown [id number] 2.16.840.1.566612.3.579.2. 196 1946 Unknown [id number] 2.16.840.1.071587.3.579.2. 196 1946 Unknown [id number] 2.16.840.1.269448.3.579.2. 727 1946 Unknown [id number] 2.16.840.1.621250.3.579.2. 727 1946 Unknown [id number] 2.16.840.1.207820.3.579.2. 727 1946 Unknown [id number] 2.16.840.1.147396.3.579.2. 727 1946 Unknown [id number] 2.16.840.1.269230.3.579.2. 727 Unknown [id number] 2.16.840.1.049910.3.579.2. 593 Unknown [id number] 2.16.840.1.119008.3.579.2. 593 Unknown [id number] 2.16.840.1.766401.3.579.2. 593 Social History Date Type Detail Facility Start: 11-08-2021 End: 03-31-2025 Tobacco smoking status NHIS Never smoked tobacco [facility] Start: 10-25-2021 End: 02-25-2025 Alcohol intake Current drinker of alcohol (finding) [facility] Start: 08-19-2014 History SDOH Alcohol Comment 1 day/wk [facility] Start: 1945 Sex Assigned At Not on file [facility] Start: 10-18-2021 End: 05-12-2022 Exposure to SARS-CoV-2 (event) Not sure [facility] Tobacco smoking status Never [facility] [employer] Start: 02-02-2023 End: 02-26-2024 Sex Assigned At Male [facility] Start: 1945 Sex Assigned At Male C [facility] Start: 01-12-2018 End: 06-04-2023 Tobacco use and exposure Smokeless tobacco non-user [facility] Start: 02-02-2023 End: 02-26-2024 History of Social function [facility] Start: 02-11-2022 Gender identity Identifies as male gender (finding) [facility] Start: 02-11-2022 Sexual orientation Heterosexual (fin ding) [facility] How often to you hav e [...] 09-06-2023 Tobacco smoking status NHIS Ex-smoker (finding) [facility] Start: 07-24-2014 End: 09-02-2024 Sex Male (finding) [facility] Sexual Orientation [facility] NEGATED: Highlighted rowStart: ARPITA History of tobacco use Passive smoker [facility] Medical Equipment Procedure Code Equipment Code Equipment Origin al Text Equipment Identifier Dates Start: 10-26-2021 End: 05-12-2022 Comment on above: 1 Each once daily. T o test blood sugars 1 Each once daily. T o test blood sugar Blood Sugar Diagnostic (Contour Next Test Strips) strip Start: 10-10-2023 Lancets (Lancets,Thin) [facility] [place] Start: 09-08-2023 Blood Sugar Diagnostic (Contour Next Test Strips) strip Start: 09-08-2023 End: 10-10-2023 Blood Sugar Diagnostic (Contour Next Test Strips) strip Start: 10-10-2023 Lancets (Lancets,Thin) [facility] [place] Start: 09-08-2023 Blood Sugar Diagnostic (Contour Next Test Strips) strip Start: 09-08-2023 End: 10-10-2023 Blood Sugar Diagnostic (Contour Next Test Strips) strip Start: 10-10-2023 Lancets (Lancets,Thin) [facility] [place] Start: 09-08-2023 Blood Sugar Diagnostic (Contour Next Test Strips) strip Start: 09-08-2023 End: 10-10-2023 Functional Status Date Assessment Result Facility 04-19-2024 Functional Status N/A [facility] 10-20-2023 Functional Status N/A [facility] 04-17-2023 Functional Status N/A [facility] 05-13-2022 Functional Status N/A [facility] 08-19-2014 Are you deaf, or do you have serious difficulty hearing No 08/19/2014 10:35 AM Santiago Mills LPN No [facility] 08-19-2014 Are you blind, or do you have serious difficulty seeing, even when wearing glasses Yes 08/19/2014 10:35 AM Santiago Mills LPN Yes [facility] 08-19-2014 Do you have serious difficulty walking or climbing stairs No 08/19/2014 10:35 AM Santiago Mills LPN No [facility] 08-19-2014 Do you have difficul ty dressing or bathing No 08/19/2014 10:35 AM Santiago Mills LPN No [facility] 08-19-2014 Because of a physica l, mental, or emotional condition, do you have difficulty doing errands alone such as visiting a physician's office or shopping No 08/19/2014 10:35 AM Santiago Mills LPN No [facility] Mental Status Date Assessment Result Facility 08-19-2014 Because of a physica l, mental, or emotional condition, do you have serious difficulty concentrating, remembering, or making decisions No 08/19/2014 10:35 AM Santiago Mills LPN No [facility] Clinical Notes 07-17-2014 to 03-31-2025 Long Boo APRN-ALEXA - 02/25/2025 10:20 AM Christo Grissom APRN.ALEXA - 08/07/2024 10:42 AM Josemanuel Navarro - 07/25/2024 8:23 AM EST Note Date & Type Note Facility 03-31-2025 Hospital Discharge instructions Patient Education 03/31/2025 10:32:10 Hormone Suppression Therapy for Prostate Cancer Hormone Suppression Therapy for Prostate Cancer Hormone [...] may be used in the following cases: When prostate cancer has spread too far to other places in the body and cannot be cured by surgery or radiation. When a person has health problems that prevent the use of surgery or radiation. Before radiation to help shrink the size of the cancer and make the radiation treatment more effective. If the prostate cancer remains or comes back following treatment with surgery or radiation. What are the types of hormone suppression therapy? Orchiectomy Orchiectomy, also called surgical castration, is a surgery to remove one or both testicles. The testicles make the two main androgens testosterone and dihydrotestosterone (DHT). This surgery reduces the levels of testosterone in the blood, leading to decreased androgen production. Medicine therapy Medicine therapy, also called medical or chemical castration, involves taking medicines to keep your body from making or using androgens. Medicines can do this in one of three ways: 1.Reducing androgen production by the testicles. Luteinizing hormone-releasing hormone (LHRH) agonists. These medicines are injected or implanted under your skin to lower the amount of androgens that your testicles make. Depending on the medicine, they can be given monthly or up to every 3 to 6 months. If you take these medicines, you may also be prescribed other medicines to help with side effects. LHRH antagonists. These medicines also work to lower the amount of androgens made in the testicles, but they work faster than LHRH agonist medicines and have less severe side effects. They are given as a monthly injection under the skin, and they are used when prostate cancer is in an advanced stage. Estrogens. These medicines are female hormones that help to reduce androgen production by the testicles. Estrogens are not used as commonly as other types of hormone suppression therapy due to their side effects. However, they may be used if other treatments do not work. 2.Blocking androgen attachment throughout the body. Anti-androgen medicines, also called androgen receptor antagonists, block areas on the body where androgens attach. These are pills that are usually used in combination with other types of hormone suppression therapy, like orchiectomy and other medicines. 3.Blocking androgen production throughout the body. Androgen synthesis inhibitor medicines. These medicines help [...] suppression therapy may cause side effects, including: Hot flashes. Diarrhea and nausea. Itching. Sexual side effects, such as: ?Decrease or lack of sexual desire. ?Decrease in size of the penis or testicles. ?Inability to get an erection (erectile dysfunction, or impotence). ?Breast tenderness or increase in breast size. Fatigue. Weight gain. Anemia. Thinning of the bones (osteoporosis) and loss of muscle mass. Depression, mood swings, and trouble with thinking [...] same time. Treatments may be combined to: Help with side effects. Treat advanced cancer. Where to find more information [employer]: www.cancer.org [employer] [place]: www.cancer.gov Contact a health care provider if: You have pain or side effects that do not get better with treatment. You have trouble urinating. You have new side effects that do not go away. Get help right away if: You have severe chest pain. You have trouble breathing. You have an irregular heartbeat. You have numbness or paralysis in the lower half of your body. You are confused. You have trouble talking or understanding speech. These symptoms may be an emergency. Do not wait to see if the symptoms will go away. Get medical help right away. Call your local emergency services (911 in the [place] Do not drive yourself to the hospital. Summary Hormone suppression therapy is a treatment for prostate cancer that can help to slow the growth of cancer cells in the prostate gland. Hormone suppression therapy alone will not cure prostate cancer, but it can slow the growth of prostate cancer and may shrink tumors over time. Treatment to suppress hormones may include surgery or medicines. Side effects such as hot flashes, changes in sexual function or desire, and weakened bones can result from hormone suppression therapy. This information is not intended to replace advice given to you by your health care provider. Make sure you discuss any questions you have with your health care provider. Document Revised: 10/14/2021 Document Reviewed: 10/14/2021 [employer] Patient Education 2023 [email or web address] Follow Up Care 10/07/2024 10:02:12 With:KAEL JAMES, Anthony Lee, URL Address: [address] [place], [place] [place] [address] When: Unknown Comments:6 mos w/ Yonis KHAN [facility] [place] 03-31-2025 Note Patient Education Oncology Hormone Suppression Therapy [...] cancer. Where to find more information ??? [place] [employer]: www.cancer.org ??? National Cancer Sebastian: www.cancer.gov Contact a health care provider if: [...] confused. ??? You (more content not included)... [facility] 03-20-2025 Note Cardiovascular Medic [facility] SUBJECTIVE Chief Complaint Patient presents with Coronary Artery Disease Denies chest pain and SOB. No recent testing. Valve Disorder Denies lightheadedness and palpitations. Hypertension Had labs in January 2025. Hyperlipidemia No recent lipid panel[facility] Pablo Felix is a 80 y.o. male here [...] kg (201 lb) SpO2 97% BMI 33.45 kg/m??? Smoking Status Never BSA 2.05 m??? Medications: Current Medications[6] Physical Exam Constitutional: Appearance: [...] graft without angina Coronary artery disease involving [place] coronary artery of [place] heart without ang (more content not included)... [facility] 02-25-2025 History of Present illness Narrative Skin [...] Left Posterior Neck, Left Preauricular Area, Left Worship, Left Temporal Scalp, Right Forehead, Right Parotid Area, Right [place] (2) Erythematous scaly papules Patient was counseled [...] limited to risks of scarring, darker or manager rn pigmentary changes, recurrence, incomplete removal and infection. [...] Left Posterior Neck, Left Preauricular Area, Left Worship, Left Temporal Scalp, Right Forehead, Right Parotid Area, Right [place] (2) Related Medications fluorouracil (Efudex) 5 % [...] (SQUAMOUS CELL CARCINOMA) OF SKIN Right [place] No evidence of recurrence at SCC scar. [...] year, skin check documented in this encounter [facility] 02-20-2025 Note HNO ID: [id number] Author: SAUL TRACEY MD Service: ? Author Type: Physician Type: Progress Notes Filed: 02/20/2025 10:48 Note Text: NAME: Pablo Felix CLINIC NO.: [id number] DATE OF SERVICE: February 20, 2025 (Denice) Some elements in this clinic note that are critical to medical decision making have been carefully reviewed and included from a prior clinic note dated: 11/07/2024 (Dheeraj) Referring Provider: RADHA Additional Clinicians involved in Pablo Felix's care: Dr. Jamar Fall, Dr. Anthony Scruggs, Dr. Khan, [facility] Cardiology DIAGNOSIS: Metastatic prostate cancer CASE SUMMARY / ASSESSMENT: 80 year old man with. 1. Metastatic prostate cancer (HCC) - ICD9: 185, ICD10: C61 (primary diagnosis) The patient was diagnosed with early-stage high-grade prostate cancer in June 2014 (TRUS biopsy 07/02/2014). He underwent a radical prostatectomy on 11/05/2014. Pathology consistent with stage IIIC (pT2b, N0, M0), Dillingham 5+4 equal 9. 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 Stable on current medications. Continue per [...] - Continue current (more content not included)... [facility] 11-06-2024 Note HNO ID: [id number] Author: MARCO A ESQUEDA MD Service: ? Author Type: Physician Type: Progress Notes Filed: 11/07/2024 14:08 Note Text: PATIENT NAME: Pablo Felix DATE: 11/07/2024 PRIMARY CARE PHYSICIAN: Dr. Jamar Fall OTHER PHYSICIANS: Dr. Anthony Scruggs, Dr. Khan, [facility] Cardiology Portions of this encounter note [...] mg 24 hr tablet Take by mouth. Nsajdmicsgfno-Fqhzuggv-Tvewxw (MULTIVITAMIN 50 PLUS) tab Take 1 tablet [...] Radical retropubic prostatectomy and bilateral pelvic lymphadenectomy ([facility]) Poorly differentiated prostatic adenocarcinoma of [...] 10/25/2021 2.64 12/15 (more content not included)... [facility] 10-07-2024 Note Patient Education Oncology Hormone [...] cancer. Where to find more information ??? [place] [employer]: www.cancer.org ??? National Cancer Sebastian: www.cancer.gov Contact a health care provider if: [...] confused. ??? You (more content not included)... [facility] 08-07-2024 Note HNO ID: [id number] Author: CHRISTO HOWARD APRN.LOGGER Service: ? Author Type: Nurse Practitioner Type: Progress Notes Filed: 08/08/2024 12:09 Note Text: PATIENT NAME: Pablo Felix DATE: 08/08/2024 PRIMARY CARE PHYSICIAN: Dr. Jamar Fall OTHER PHYSICIANS: Dr. Anthony Scruggs, Dr. Khan, [facility] Cardiology Portions of this encounter note [...] mg 24 hr tablet Take by mouth. Yzbeooqijofjp-Bbsijmga-Spuyeg (MULTIVITAMIN 50 PLUS) tab Take 1 tablet [...] Radical retropubic prostatectomy and bilateral pelvic lymphadenectomy ([facility]) Poorly differentiated prostatic adenocarcinoma of [...] 1.58 10/25/2021 2.6 (more content not included)... [facility] 08-07-2024 History of Present illness Narrative PATIENT NAME: Pablo Felix DATE: 08/08/2024 PRIMARY CARE PHYSICIAN: Dr. Jamar Fall OTHER PHYSICIANS: Dr. Anthony Scruggs, Dr. Khan, [facility] Cardiology Portions of this encounter note [...] mg 24 hr tablet Take by mouth. Hermutxtgiepw-Slvubmwu-Mmlfso (MULTIVITAMIN 50 PLUS) tab Take 1 tablet [...] Radical retropubic prostatectomy and bilateral pelvic lymphadenectomy ([facility]) Poorly differentiated prostatic adenocarcinoma of [...] 08/01/2024 0.19 RADIOLOGY/OTHER STUDIES: 11/05/2021 CT chest/abdomen/pelvis ([facility]) Several sclerotic lesions consistent with metastatic disease. No evidence of visceral organ involvement or lymphadenopathy. 11/05/2021 Bone scan ([facility]) Multifocal osseous metastasis including the left femur at the lesser trochanter, right pubis symphysis, multiple ribs bilaterally. 01/22/2018 Nuclear bone scan ([facility]) New focal increased activity left frontal bone, left T8 vertebral body. 01/22/2018 MRI pelvis ([facility]) 4.5 cm area of T2 signal in the prostate bed. 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 Stable on current medications. Continue per [...] which included preparing to see the patient, wthm-lm-jndg patient care, completing clinical documentation, obtaining and/or reviewing separately obtained history, performing a medically appropriate examination, counseling and educating the patient/family/caregiver, ordering medications, tests, or procedures, independently interpreting results (not separately reported), and communicating results to the patient/family/caregiver. documented in this encounter [facility] 07-25-2024 Telephone encounter Note Patient on lab schedule 08/01/24 for lab only prior to RV. Please review and place needed order. Thank you, Gabi Ortiz MLT [facility] 07-25-2024 Miscellaneous Notes Patient on lab schedule 08/01/24 for lab only prior to RV. Please review and place needed order. Thank you, Gabi Ortiz MLT documented in this encounter [facility] 06-10-2024 Evaluation note Diagnosis Onset Date [...] diabetes mellitus with hyperglycemia acute August 9:28am [facility] Work Phone: [phone] Telephone encounter Note* Telephone Encounter - Aida Luo RPh - 05/08/2024 8:53 AM EDT This prescription confirms Pablo' re-enrollment in the Xtandi free drug program for 2024. Thank you Josh Luo PharmD, BCOP [facility] Work Phone: [phone] 374-898210-23-2024 Miscellaneous Notes* Telephone Encounter - Aida Luo RPh - 05/08/2024 8:53 AM EDT This prescription confirms Pablo' re-enrollment in the Xtandi free drug program for 2024. Thank you Josh Luo PharmD, BCOP documented in [facility] encounterSt[facility]24 NoteHNO ID: [id number] Author: MARCO A ESQUEDA MD Service: ? Author Type: Physician Type: Progress Notes Filed: 05/10/2024 07:40 Note Text: PATIENT NAME: Pablo Felix DATE: 05/09/2024 PRIMARY CARE PHYSICIAN: Dr. Jamar Fall OTHER PHYSICIANS: Dr. Anthony Scruggs, Dr. Khan, [facility] Cardiology Portions of this encounter note [...] mg 24 hr tablet Take by mouth. Uaqtcmnqfucoo-Tpefntoe-Auxjaw (MULTIVITAMIN 50 PLUS) tab Take 1 tablet [...] Radical retropubic prostatectomy and bilateral pelvic lymphadenectomy ([facility]) Poorly differentiated prostatic adenocarcinoma of [...] 08/11/2022 0.11 10/25/2022 0.1 (more content not included)...[facility]10-[facility]24 History of Present illness Narrative* Marco A Esqueda MD - 05/08/2024 8:13 AM EDT PATIENT NAME: Pablo Felix DATE: 05/09/2024 PRIMARY CARE PHYSICIAN: Dr. Jamar Fall OTHER PHYSICIANS: Dr. Anthony Scruggs, Dr. Khan, [facility] Cardiology Portions of this encounter note [...] mg 24 hr tablet Take by mouth. Prrmbczxtfmpm-Bgncolnw-Nlivyc (MULTIVITAMIN 50 PLUS) tab Take 1 tablet [...] Radical retropubic prostatectomy and bilateral pelvic lymphadenectomy ([facility]) Poorly differentiated prostatic adenocarcinoma of [...] 05/03/2024 0.18 RADIOLOGY/OTHER STUDIES: 11/05/2021 CT chest/abdomen/pelvis ([facility]) Several sclerotic lesions consistent with metastatic disease. No evidence of visceral organ involvement or lymphadenopathy. 11/05/2021 Bone scan ([facility]) Multifocal osseous metastasis including the left femur at the lesser trochanter, right pubis symphysis, multiple ribs bilaterally. 01/22/2018 Nuclear bone scan ([facility]) New focal increased activity left frontal bone, left T8 vertebral body. 01/22/2018 MRI pelvis ([facility]) 4.5 cm area of T2 signal in the prostate bed. 07/24/2014 CT abdomen/pelvis ([facility]) Diffuse prostatic enlargement with indentation of the bladder base. Incidental 2.5 x 1 cm exophytic hypodense lesion adjacent to the pancreatic body. ASSESSMENT/PLAN: 1. Metastatic prostate cancer (HCC) - ICD9: 185, ICD10: C61 (primary diagnosis) The patient was diagnosed with early-stage high-grade prostate cancer in June 2014 (TRUS [id number]/02/2014). He underwent a radical prostatectomy on 11/05/2014. [...] ICD10: I25.10 Status post CABG 08/17/2014 ([facility]). Stable on current medications. Continue per [...] CC: Dr. Anthony Scruggs documented [facility] Hospital Discharge instructions Patient Education 04/19/2024 [...] similar to normal prostate cells (moderately differentiated). Dillingham 8, 9, or 10: This indicates that [...] stress of having cancer. General instructions Take ccnf-kev-brwcfkj and prescription medicines only as told by your health care provider. If you have to go to the hospital, notify your cancer specialist (oncologist). Keep all follow-up visits. This is important. Where to find more information [place] Cancer [employer]: www.cancer.org [place] Society of Clinical Oncology: www.cancer.net National Cancer Sebastian: www.cancer.gov Contact a health care provider if: [...] provider. Document Revised: 09/29/2021 Document Reviewed: 09/29/2021 [employer] Patient Education 2023 Xet[employer]ave. Follow Up Care 10/20/2023 09:58:12 With:KAEL JAMES, Anthony Lee, URL Address: [address] [place], [place] [id number]- When: Unknown [facility] [place] 10-04-2024 NotePatient Education Oncology Prostate Cancer The [...] under a microscope. This is called the Dillingham score and the total score can range from 6?10, indicating how likely it is that the cancer will spread (metastasize) to other parts of the body. The higher the score, the greater thelikelihood that the cancer will spread. ? Dillingham 6 or lower: This indicates that the [...] implanted intothe prostate gla (more content not included)...[facility]09-16-2024 Telephone encounter Note* Telephone Encounter - Aida Luo RPh - 04/01/2024 3:59 PM EDT Recd phone call from [employer] that they are unable to obtain the Xtandi 80mg tablets a thistime and requested a script for the 40 mg dosing. Order pending Josh Luo, RodolfoD, BCOP [facility] Work Phone: [phone] Miscellaneous Notes* Telephone Encounter - Aida Luo RPh - 04/01/2024 3:59 PM EDT Recd phone call from [employer] that they are unable to obtain the Xtandi 80mg tablets a thistime and requested a script for the 40 mg dosing. Order pending Josh Luo, Jose Enrique, BCOP documented in this encounterSt. [facility]09-[facility]24 NoteCoronary artery disease is stable, no concerning symptoms currently overall is doing well he is planning bilateral carpal tunnel surgery soon with Dr. Charlton. Continue GDMT-continue aspirin, Lipitor, metoprolol, and lisinopril continue risk factor modifications- heart healthy diet, regular exercise as tolerated and continue all medications.[facility] 03-29-2024 NoteHypertension is well-controlled at 127/51 Continue lisinopril/hydrochlorothiazide and metoprolol. Renal function normalUnOhioHealth [facility]09-13-2024 NoteLipid abnormalities are stable continue Lipitor 40 mg daily lipid profile is well-controlled and liver function is normalUnOhioHealth [facility] 03-29-2024 NoteReviewed echocardiogram from July 08 moderate aortic stenosis noted and reviewed echo with patient and his No concerning symptoms at this time patient would like symptoms including palpitations, lightheaded dizziness, syncope, chest pain, worsening shortness of breath and he voiced understanding Monitor with echocardiogramUnOhioHealth Shelby Hospital09-13-2024 Note RCRI=1 points Class II Risk 6.0 % 30-day risk of , [place], or cardiac arrest From a cardiac perspective pt may proceed with carpal tunnel surgery, he is a moderate risk for a low risk surgery. She may hold aspirin 5-7 days prior and resume post op. Please monitor hemodynamics carefully and prevent any major fluid shifts.[facility]09-13-2024 NoteUTP CARDIOLOGY PROGRESS NOTE HPI: Pablo Felix [...] AV stenosis and regur (more content not included)...[facility]09-13-2024 NotePt is here for surgery clearance. Pt denies chest pain, sob, palpatations Review of Systems Musculoskeletal: Positive for arthritis, back pain, joint pain and myalgias. All other systems reviewed and are negative.[facility] 02-02-2024 Instructions* Patient Instructions* Lynne Rajan APRN.CNP - [...] troubles swallowing, increasing confusion documented in this encounterSt. [facility]07-[facility] History of Present illness Narrative* Lynne Rajan APRN.CNP - 02/02/2024 11:30 AM EDT PATIENT NAME: Pablo Felix DATE: February 02, 2024 PRIMARY CARE PHYSICIAN: Dr. Jamar Fall OTHER PHYSICIANS: Dr. Anthony Scruggs, Dr. Khan, [facility] Cardiology This note was copied from [...] mg 24 hr tablet Take by mouth. Bqtwetgtwgbyc-Riuydhco-Ipaols (MULTIVITAMIN 50 PLUS) tab Take 1 tablet [...] Radical retropubic prostatectomy and bilateral pelvic lymphadenectomy ([facility]) Poorly differentiated prostatic adenocarcinoma of [...] 01/25/2024 0.15 RADIOLOGY/OTHER STUDIES: 11/05/2021 CT chest/abdomen/pelvis ([facility]) Several sclerotic lesions consistent with metastatic disease. No evidence of visceral organ involvement or lymphadenopathy. 11/05/2021 Bone scan ([facility]) Multifocal osseous metastasis including the left femur at the lesser trochanter, right pubis symphysis, multiple ribs bilaterally. 01/22/2018 Nuclear bone scan ([facility]) New focal increased activity left frontal bone, left T8 vertebral body. 01/22/2018 MRI pelvis ([facility]) 4.5 cm area of T2 signal in the prostate bed. 07/24/2014 CT abdomen/pelvis ([facility]) Diffuse prostatic enlargement with indentation of the bladder base. Incidental 2.5 x 1 cm exophytic hypodense lesion adjacent to the pancreatic body. ASSESSMENT/PLAN: 1. Metastatic prostate cancer (HCC) - ICD9: 185, ICD10: C61 (primary diagnosis) The patient was diagnosed with early-stage high-grade prostate cancer in June 2014 (TRUS [id number]/02/2014). He underwent a radical prostatectomy on 11/05/2014. Pathology consistent with stage IIIC (pT2b, N0, M0), Dillingham 5+4 equal 9. Postop the patient's PSA [...] suppressed at <12. Bone scan obtained at [facility] 11/05/2021 revealed multiple bone metastases. [...] ICD10: I25.10 Status post CABG 08/17/2014 ([facility]). Stable on current medications. Continue per [...] follow up. Lynne Rajan APRN.CNP Hematology/Oncology [facility] [phone] CC: Dr. Anthony Scruggs documented in this encounterSt. [facility] Hospital04-18-2024 History of Present illness Narrative* Christo Howard APRN.ALEXA - 11/02/2023 9:28 AM EDT PATIENT NAME: Pablo Felix DATE: 11/02/2023 PRIMARY CARE PHYSICIAN: Dr. Jamar Fall OTHER PHYSICIANS: Dr. Anthony Scruggs, Dr. Khan, [facility] Cardiology Portions of this encounter note [...] mg 24 hr tablet Take by mouth. Vamykkdsonoze-Erkubkcx-Hosmje (MULTIVITAMIN 50 PLUS) tab Take 1 tablet [...] Radical retropubic prostatectomy and bilateral pelvic lymphadenectomy ([facility]) Poorly differentiated prostatic adenocarcinoma of [...] 10/29/2023 0.16 RADIOLOGY/OTHER STUDIES: 11/05/2021 CT chest/abdomen/pelvis ([facility]) Several sclerotic lesions consistent with metastatic disease. No evidence of visceral organ involvement or lymphadenopathy. 11/05/2021 Bone scan ([facility]) Multifocal osseous metastasis including the left femur at the lesser trochanter, right pubis symphysis, multiple ribs bilaterally. 01/22/2018 Nuclear bone scan ([facility]) New focal increased activity left frontal bone, left T8 vertebral body. 01/22/2018 MRI pelvis ([facility]) 4.5 cm area of T2 signal in the prostate bed. 07/24/2014 CT abdomen/pelvis ([facility]) Diffuse prostatic enlargement with indentation of the bladder base. Incidental 2.5 x 1 cm exophytic hypodense lesion adjacent to the pancreatic body. ASSESSMENT/PLAN: 1. Metastatic prostate cancer (HCC) - ICD9: 185, ICD10: C61 (primary diagnosis) The patient was diagnosed with early-stage high-grade prostate cancer in June 2014 (TRUS [id number]/02/2014). He underwent a radical prostatectomy on 11/05/2014. [...] suppressed at <12. Bone scan obtained at [facility] 11/05/2021 revealed multiple bone metastases. [...] mg daily plus Xgeva every 3 months. Henayelill receive Xgeva today. We will see him back in 3 months with labs. We will monitor his testosterone level and PSA, and would recommend that he resume Lupron if any significant changes. 2. Coronary artery disease - ICD9: 414.01, ICD10: I25.10 Status post CABG 08/17/2014 ([facility]). Stable on current medications. Continue per [...] would reconsider referral to GI. Christo Howard APRN.LOGGER CC: Dr. Anthony Scruggs I spent a total of 30 minutes on the date of the service which included preparing to see the patient, ogtn-nz-xnie patient care, completing clinical documentation, obtaining and/or reviewing separately obtained history, performing a medically appropriate examination, counseling and educating the pat ient/family/caregiver, ordering medications, tests, or procedures, independently interpreting results (not separately reported), and communicating results to the patient/family/caregiver. documented in this encounterSt. [facility] Hospital04-[facility] Hospital Discharge instructions Patient Education 10/20/2023 [...] greater thelikelihood that the cancer will spread. Dillingham 6 or lower: This indicates that the [...] stress of having cancer. General instructions Take vqob-guy-vorejjz and prescription medicines only as told by your health care provider. If you have to go to the hospital, notify your cancer specialist (oncologist). Keep all follow-up visits. This is important. Where to find more information [place] [employer]: www.cancer.org [place] Society of Clinical Oncology: www.cancer.net National Cancer Sebastian: www.cancer.gov Contact a health care provider if: [...] provider. Document Revised: 09/29/2021 Document Reviewed: 09/29/2021 [employer] Patient Education 2022 Xetawave. Follow Up Care 04/17/2023 09:25:02 With:KAEL JAMES, Anthony Lee, URL Address: [address] [place], [place] [id number]- When: Unknown [facility] [place] 02-12-2024 History of Present illness Narrative* Long Boo, 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 - 08/28/2023 11:25 AM EST Images from [...] limited to risks of scarring, darker or manager rn pigmentary changes, recurrence, incomplete removal and infection. [...] biopsy results, 6 months documented in this encounterPutnam County [facility] [id number] Evaluation note* Encounter Date Diagnosis Assessment Notes [...] use, the patient reduces the risk for KS, CVA, HTN, cardiac dysrhythmias and sudden cardiac [...] retention cyst and frontal sinus mass benign [facility] Other 01-19-2024 Evaluation note* Encounter Date Diagnosis Assessment Notes Treatment Notes Treatment Clinical Notes Jul, Pancreatic mass (ICD-10 - K86.89) MRCP: 4cm mass - 2022 - previously completed EUS bx at [facility] - stable in size from 2021 [facility] Other 11-14-2023 Evaluation note* Encounter Date Diagnosis Assessment Notes [...] ENT since scheduling appt for sinus mass [facility] Other 10-16-2023 Evaluation note* Encounter Date Diagnosis [...] malignant neoplasm of bone (ICD-10 - C79.51) [facility] Other 10-12-2023 History of Present illness Narrative* Christo Howard APRN.LOGGER - 04/27/2023 10:00 AM EDT PATIENT NAME: Pablo Felix DATE: 04/27/2023 PRIMARY CARE PHYSICIAN: Dr. Jamar Fall OTHER PHYSICIANS: Dr. Anthony Scruggs, Dr. Khan, [facility] Cardiology Portions of this encounter note [...] mg 24 hr tablet Take by mouth. Kyfmcfxehhrfu-Yuznlote-Fuhctp (MULTIVITAMIN 50 PLUS) tab Take 1 tablet [...] Radical retropubic prostatectomy and bilateral pelvic lymphadenectomy ([facility]) Poorly differentiated prostatic adenocarcinoma of [...] 04/24/2023 0.12 RADIOLOGY/OTHER STUDIES: 11/05/2021 CT chest/abdomen/pelvis ([facility]) Several sclerotic lesions consistent with metastatic disease. No evidence of visceral organ involvement or lymphadenopathy. 11/05/2021 Bone scan ([facility]) Multifocal osseous metastasis including the left femur at the lesser trochanter, right pubis symphysis, multiple ribs bilaterally. 01/22/2018 Nuclear bone scan ([facility]) New focal increased activity left frontal bone, left T8 vertebral body. 01/22/2018 MRI pelvis ([facility]) 4.5 cm area of T2 signal in the prostate bed. 07/24/2014 CT abdomen/pelvis ([facility]) Diffuse prostatic enlargement with indentation of the bladder base. Incidental 2.5 x 1 cm exophytic hypodense lesion adjacent to the pancreatic body. ASSESSMENT/PLAN: 1. Metastatic prostate cancer (HCC) - ICD9: 185, ICD10: C61 (primary diagnosis) The patient was diagnosed with early-stage high-grade prostate cancer in June 2014 (TRUS [id number]/02/2014). He underwent a radical prostatectomy on 11/05/2014. [...] suppressed at <12. Bone scan obtained at [facility] 11/05/2021 revealed multiple bone metastases. [...] ICD10: I25.10 Status post CABG 08/17/2014 ([facility]). Stable on current medications. Continue per [...] which included preparing to see the patient, qrfj-ci-ukoe patient care, completing clinical documentation, obtaining and/or reviewing separately obtained history, performing a medically appropriate examination, counseling and educating the pat ient/family/caregiver, ordering medications, tests, or procedures, independently interpreting results (not separately reported), and communicating results to the patient/family/caregiver. documented in this encounterSt. [facility] Hospital10-[facility]23 Evaluation note* Encounter Date Diagnosis Assessment Notes Treatment Notes Treatment Clinical Notes Apr, Pancreatic mass (ICD-10 - K86.89) [facility] Other 10-02-2023 Hospital Discharge instructions Patient Education [...] under a microscope. This is called the Lucrecai score and the total score can range from 6 10, indicating how likely it is that the cancer will spread (metastasize) to other parts of the body. The higher the score, the greater thelikelihood that the cancer will spread. Dillingham 6 or lower: This indicates that the [...] stress of having cancer. General instructions Take abuk-iho-gnoqavf and prescription medicines only as told by your health care provider. If you have to go to the hospital, notify your cancer specialist (oncologist). Keep all follow-up visits. This is important. Where to find more information [place] [employer]: www.cancer.org [place] [employer] Oncology: www.cancer.net National Cancer [employer]: www.cancer.gov Contact a health care provider if: [...] provider. Document Revised: 09/29/2021 Document Reviewed: 09/29/2021 [employer] Patient Education 2022 Xetawave. Follow Up Care 10/28/2022 08:37:57 With:KAEL JAMES, Anthony Lee, URL Address: [facility] [address], [place] [address]- [phone] When: Unknown Comments:6 mos w/ PSA (and possible Lupron) [facility] [place] 09-27-2023 Evaluation note* Encounter Date Diagnosis Assessment Notes Treatment Notes Treatment Clinical Notes Mar, Pancreatic mass (ICD-10 - K86.89) [facility] Other 09-20-2023 Evaluation note* Encounter Date Diagnosis Assessment Notes Treatment Notes Treatment Clinical Notes Mar, Right upper quadrant abdominal pain (ICD-10 - R10.11) Diet instructions Lab to r/o acute infection, cholecystitis, pancreatitis GBUS vs CT abd based on results BLand, low fat diet Mar, Nausea (ICD-10 - R11.0) [place] , small/frequent feedings. Pepcid, Prilosec, Tums as [...] Microalbumin, Dilated eye exam and Foot exam [facility] Other 08-30-2023 Evaluation note* Encounter Date Diagnosis [...] use, the patient reduces the risk for KS, CVA, HTN, cardiac dysrhythmias and sudden cardiac [...] exercise for 30 minutes, 3-5 times weekly. [facility] Other 07-23-2023 Evaluation note* Encounter Date Diagnosis Assessment Notes Treatment Notes Treatment Clinical Notes Jan, Left bundle-branch block, unspecified (ICD-10 - I44.7) [facility] Other 07-20-2023 History of Present illness Narrative* Marco A Esqueda MD - 02/02/2023 7:38 AM EDT PATIENT NAME: Pablo Felix DATE: 02/02/2023 PRIMARY CARE PHYSICIAN: Dr. Jamar Fall OTHER PHYSICIANS: Dr. Anthony Scruggs, Dr. Khan, [facility] Cardiology Portions of this encounter note [...] mg 24 hr tablet Take by mouth. Szuoxqghmwdma-Aixxjpbb-Ppzmpn (MULTIVITAMIN 50 PLUS) tab Take 1 tablet [...] Radical retropubic prostatectomy and bilateral pelvic lymphadenectomy ([facility]) Poorly differentiated prostatic adenocarcinoma of [...] 10/25/2022 0.13 RADIOLOGY/OTHER STUDIES: 11/05/2021 CT chest/abdomen/pelvis ([facility]) Several sclerotic lesions consistent with metastatic disease. No evidence of visceral organ involvement or lymphadenopathy. 11/05/2021 Bone scan ([facility]) Multifocal osseous metastasis including the left femur at the lesser trochanter, right pubis symphysis, multiple ribs bilaterally. 01/22/2018 Nuclear bone scan ([facility]) New focal increased activity left frontal bone, left T8 vertebral body. 01/22/2018 MRI pelvis ([facility]) 4.5 cm area of T2 signal in the prostate bed. 07/24/2014 CT abdomen/pelvis ([facility]) Diffuse prostatic enlargement with indentation of the bladder base. Incidental 2.5 x 1 cm exophytic hypodense lesion adjacent to the pancreatic body. ASSESSMENT/PLAN: 1. Metastatic prostate cancer (HCC) - ICD9: 185, ICD10: C61 (primary diagnosis) The patient was diagnosed with early-stage high-grade prostate cancer in June 2014 (TRUS [id number]/02/2014). He underwent a radical prostatectomy on 11/05/2014. Pathology consistent with stage IIIC (pT2b, N0, M0), Dillingham 5+4 equal 9. Postop the patient's PSA [...] suppressed at <12. Bone scan obtained at [facility] 11/05/2021 revealed multiple bone metastases. [...] ICD10: I25.10 Status post CABG 08/17/2014 ([facility]). Stable on current medications. Continue per [...] CC: Dr. Anthony Scruggs documented in this encounterSt. Vincent Hospital04-27-2023 History of Present illness Narrative* Christo Howard APRN.LOGGER - 11/10/2022 10:00 AM EDT PATIENT NAME: Pablo Felix DATE: 11/10/2022 PRIMARY CARE PHYSICIAN: Dr. Jamar Fall OTHER PHYSICIANS: Dr. Anthony Scruggs, Dr. Khan, [facility] Cardiology Portions of this encounter note [...] mg 24 hr tablet Take by mouth. Sfiuryxcbraor-Qajsrfrn-Tcjjzc (MULTIVITAMIN 50 PLUS) tab Take 1 tablet [...] Radical retropubic prostatectomy and bilateral pelvic lymphadenectomy ([facility]) Poorly differentiated prostatic adenocarcinoma of [...] PSA 0.13 RADIOLOGY/OTHER STUDIES: 11/05/2021 CT chest/abdomen/pelvis ([facility]) Several sclerotic lesions consistent with metastatic disease. No evidence of visceral organ involvement or lymphadenopathy. 11/05/2021 Bone scan ([facility]) Multifocal osseous metastasis including the left femur at the lesser trochanter, right pubis symphysis, multiple ribs bilaterally. 01/22/2018 Nuclear bone scan ([facility]) New focal increased activity left frontal bone, left T8 vertebral body. 01/22/2018 MRI pelvis ([facility]) 4.5 cm area of T2 signal in the prostate bed. 07/24/2014 CT abdomen/pelvis ([facility]) Diffuse prostatic enlargement with indentation of the bladder base. Incidental 2.5 x 1 cm exophytic hypodense lesion adjacent to the pancreatic body. ASSESSMENT/PLAN: 1. Metastatic prostate cancer (HCC) - ICD9: 185, ICD10: C61 (primary diagnosis) The patient was diagnosed with early-stage high-grade prostate cancer in June 2014 (TRUS [id number]/02/2014). He underwent a radical prostatectomy on 11/05/2014. Pathology consistent with stage IIIC (pT2b, N0, M0), Dillingham 5+4 equal 9. Postop the patient's PSA [...] suppressed at <12. Bone scan obtained at [facility] 11/05/2021 revealed multiple bone metastases. [...] ICD10: I25.10 Status post CABG 08/17/2014 ([facility]). Stable on current medications. Continue per [...] which included preparing to see the patient, wugl-dy-jzho patient care, completing clinical documentation, obtaining and/or reviewing separately obtained history, performing a medically appropriate examination, counseling and educating the pat ient/family/caregiver, ordering medications, tests, or procedures, independently interpreting results (not separately reported), and communicating results to the patient/family/caregiver. documented in this encounterSt. Vincent Hospital03-03-2023 Evaluation note* Encounter Date Diagnosis Assessment [...] injection w/ Kenalog, may increase BS slightly [facility] Other 02-24-2023 Evaluation note* Encounter Date Diagnosis [...] is aware of the benefits associated with RGADY: With continued use, the patient reduces the risk for KS, CVA, HTN, cardiac dysrhythmias and sudden cardiac [...] Lupron along w/ additional oral chemotherapy from [facility] Oncology. Also receiving Boniva Aug, Other [...] reviewed and amended by provider signed below. [facility] Other 01-26-2023 History of Present illness Narrative* Marco A Esqueda MD - 08/11/2022 7:42 AM EST PATIENT NAME: Pablo Felix DATE: 08/11/2022 PRIMARY CARE PHYSICIAN: Dr. Jamar Fall OTHER PHYSICIANS: Dr. Anthony Scruggs, Dr. Khan, [facility] Cardiology Portions of this encounter note [...] mg 24 hr tablet Take by mouth. Bkqjplphtrwse-Mgfvoaoy-Xpxkid (MULTIVITAMIN 50 PLUS) tab Take 1 tablet [...] Radical retropubic prostatectomy and bilateral pelvic lymphadenectomy ([facility]) Poorly differentiated prostatic adenocarcinoma of [...] 08/11/2022 PSA RADIOLOGY/OTHER STUDIES: 11/05/2021 CT chest/abdomen/pelvis ([facility]) Several sclerotic lesions consistent with metastatic disease. No evidence of visceral organ involvement or lymphadenopathy. 11/05/2021 Bone scan ([facility]) Multifocal osseous metastasis including the left femur at the lesser trochanter, right pubis symphysis, multiple ribs bilaterally. 01/22/2018 Nuclear bone scan ([facility]) New focal increased activity left frontal bone, left T8 vertebral body. 01/22/2018 MRI pelvis ([facility]) 4.5 cm area of T2 signal in the prostate bed. 07/24/2014 CT abdomen/pelvis ([facility]) Diffuse prostatic enlargement with indentation of the bladder base. Incidental 2.5 x 1 cm exophytic hypodense lesion adjacent to the pancreatic body. ASSESSMENT/PLAN: 1. Metastatic prostate cancer (HCC) - ICD9: 185, ICD10: C61 (primary diagnosis) The patient was diagnosed with early-stage high-grade prostate cancer in June 2014 (TRUS [id number]/02/2014). He underwent a radical prostatectomy on 11/05/2014. Pathology consistent with stage IIIC (pT2b, N0, M0), Dillingham 5+4 equal 9. Postop the patient's PSA [...] suppressed at <12. Bone scan obtained at [facility] 11/05/2021 revealed multiple bone metastases. [...] ICD10: I25.10 Status post CABG 08/17/2014 ([facility]). Stable on current medications. Continue per [...] CC: Dr. Anthony Scruggs documented in this encounterSt. Vincent Hospital01-05-2023 NotePROCEDURE: XR SHOULDER LT 2V or [...] Electronically authenticated by: CYNTHIA TORRES Date: 2022-07-21 15:46[facility]01-05-2023 Evaluation note* Encounter Date Diagnosis Assessment Notes Treatment Notes Treatment Clinical Notes Jul, Cervical spondylosis with radiculopathy (ICD-10 - M47.22) ROM exercises, heat/ice and Tylenol 1000mg tid. Initiated Tramadol w/ caution, no driving, may cause sedation. Jul, Acute pain of left shoulder (ICD-10 - M25.512) ROM exercises, Tylenol and Tramadol as needed. Jul, Annual physical exam (ICD-10 - Z00.00) [facility] Other 10-28-2022 Hospital Discharge instructions Patient Education [...] who: Are older than age 65. Are -Sur[place]amese. Are obese. Have a family history of [...] cells. Follow these instructions at home: Take zkvz-tkm-nhnfeir and prescription medicines only as told by [...] 07/03/2006 Document Revised: 06/15/2018 Document Reviewed: 03/13/2017 [employer] Patient Education Self Point. Follow Up Care 11/08/2021 14:14:20 With:KAEL JAMES, Anthony Lee, URL Address: [address] [place] [address]- When: Unknown [facility] 10-27-2022 Nurse Note* Sheela Toney - 05/12/2022 10:43 AM EDT AUA=2 documented in this encounterSt. Vincent Hospital10-27-2022 History of Present illness Narrative* Zach Khan MD - 05/12/2022 10:41 AM EDT Radiation Oncology - Follow Up Note PATIENT NAME: Pablo Felix PATIENT DIAGNOSIS: Prostate adenocarcinoma, initial clinical stage II, initial PSA 1.07, biopsy Dillingham score 9(4,5), s/p prostatectomy for 11/05/14 pathologic stage IIIC [id number], Lucrecia 9 (5, 4) now with rising [...] Each once daily. To test blood sugar Okgtcmetaksth-Sycootse-Nafipw (MULTIVITAMIN 50 PLUS) tab Take 1 tablet [...] clinical stage II, initial PSA 1.07, biopsy Dillingham score 9(4,5), s/p prostatectomy for 11/05/14 pathologic stage IIIC [id number], Lucrecia 9 (5, 4) withrising PSA, subsequently [...] Khan MD cc: Jamar Fall MD ([facility]) Portions of the above note extracted and edited from previous visit as well as active information included in the EMR. documented in this encounterSt. Vincent Hospital10-17-2022 Miscellaneous Notes* Telephone Encounter - Sheela Toney - 05/02/2022 10:48 AM EDT Patient coming in on 05/12/22 for follow up with labs. Please add lab orders. Thanks, Sheela Toney MA documented in this encounterSt. Vincent Hospital08-04-2022 History of Present illness Narrative* Marco A Esqueda MD - 02/17/2022 7:51 AM EDT PATIENT NAME: Pablo Felix DATE: 02/17/2022 PRIMARY CARE PHYSICIAN: Jamar Fall DO OTHER PHYSICIANS: Dr. Anthony Scruggs, Dr. Khan, [facility] Cardiology Portions of this encounter note [...] Each once daily. To test blood sugar Bzecxschcxehh-Gdevqoqh-Duaggi (MULTIVITAMIN 50 PLUS) tab Take 1 tablet [...] Radical retropubic prostatectomy and bilateral pelvic lymphadenectomy ([facility]) Poorly differentiated prostatic adenocarcinoma of [...] PSA 0.14 RADIOLOGY/OTHER STUDIES: 11/05/2021 CT chest/abdomen/pelvis ([facility]) Several sclerotic lesions consistent with metastatic disease. No evidence of visceral organ involvement or lymphadenopathy. 11/05/2021 Bone scan ([facility]) Multifocal osseous metastasis including the left femur at the lesser trochanter, right pubis symphysis, multiple ribs bilaterally. 01/22/2018 Nuclear bone scan ([facility]) New focal increased activity left frontal bone, left T8 vertebral body. 01/22/2018 MRI pelvis ([facility]) 4.5 cm area of T2 signal in the prostate bed. 07/24/2014 CT abdomen/pelvis ([facility]) Diffuse prostatic enlargement with indentation of the bladder base. Incidental 2.5 x 1 cm exophytic hypodense lesion adjacent to the pancreatic body. ASSESSMENT/PLAN: 1. Metastatic prostate cancer (HCC) - ICD9: 185, ICD10: C61 (primary diagnosis) The patient was diagnosed with early-stage high-grade prostate cancer in June 2014 (TRUS [id number]/02/2014). He underwent a radical prostatectomy on 11/05/2014. Pathology consistent with stage IIIC (pT2b, N0, M0), Dillingham 5+4 equal 9. Postop the patient's PSA [...] at <12. Staging scans were obtained at [facility] on 11/05/2021. Bone scan revealed [...] ICD10: I25.10 Status post CABG 08/17/2014 ([facility]). Stable on current medications. Continue per [...] CC: Dr. Anthony Scruggs documented in this encounterSt. Vincent Hospital05-23-2022 Miscellaneous Notes* Telephone Encounter - Clementine [...] that he has the phone number to [facility] in [place] pharmacy. No additional questionsnoted. Clementine Aguilar RN documented in this encounterSt. Vincent Hospital04-28-2022 History of Present illness Narrative* Marco A Esqueda MD - 11/11/2021 7:42 AM EDT PATIENT NAME: Pablo Felix DATE: 11/11/2021 PRIMARY CARE PHYSICIAN: Jamar Fall DO OTHER PHYSICIANS: Dr. Anthony Scruggs, Dr. Khan, [facility] Cardiology Portions of this encounter note have been copied from my note from 10/28/2021 and has been updated where appropriate, and reflect my current medical decision making from today. CC: This is a 76 year old male with recently diagnosed metastatic prostate cancer, seen for scheduled follow-up. INTERIM HISTORY: Since the patient's initial visit here he underwent staging scans at [facility] on 11/05/2021. Bone scan revealed [...] Each once daily. To test blood sugar Bgmdrwqxrghfz-Axzinbkg-Xpmmwb (MULTIVITAMIN 50 PLUS) tab Take 1 tablet [...] Radical retropubic prostatectomy and bilateral pelvic lymphadenectomy ([facility]) Poorly differentiated prostatic adenocarcinoma of [...] PSA 2.64 RADIOLOGY/OTHER STUDIES: 11/05/2021 CT chest/abdomen/pelvis ([facility]) Several sclerotic lesions consistent with metastatic disease. No evidence of visceral organ involvement or lymphadenopathy. 11/05/2021 Bone scan ([facility]) Multifocal osseous metastasis including the left femur at the lesser trochanter, right pubis symphysis, multiple ribs bilaterally. 01/22/2018 Nuclear bone scan ([facility]) New focal increased activity left frontal bone, left T8 vertebral body. 01/22/2018 MRI pelvis ([facility]) 4.5 cm area of T2 signal in the prostate bed. 07/24/2014 CT abdomen/pelvis ([facility]) Diffuse prostatic enlargement with indentation of the bladder base. Incidental 2.5 x 1 cm exophytic hypodense lesion adjacent to the pancreatic body. ASSESSMENT/PLAN: 1. Metastatic prostate cancer (HCC) - ICD9: 185, ICD10: C61 (primary diagnosis) The patient was diagnosed with early-stage high-grade prostate cancer in June 2014 (TRUS [id number]/02/2014). He underwent a radical prostatectomy on 11/05/2014. [...] at <12. Staging scans were obtained at [facility] on 11/05/2021. Bone scan revealed [...] ICD10: I25.10 Status post CABG 08/17/2014 ([facility]). Stable on current medications. Continue per [...] CC: Dr. Anthony Scruggs documented in this encounterSt. Vincent Hospital04-27-2022 Miscellaneous Notes* Telephone Encounter - Clementine Aguilar RN - 11/10/2021 3:03 PM EDT Pt reports his Enzalutamide was delivered. Will start this evening. Clementine Aguilar RN documented in this encounterSt. Vincent Hospital04-26-2022 Miscellaneous Notes* Telephone Encounter - Clementine Aguilar RN - 11/09/2021 2:31 PM EDT Per pt, his Enzalutamide is scheduled to arrive tomorrow morning. Patient started/will start taking Enzalutamide on 11/10/21. Clementine Aguilar RN documented in this encounterSt. Vincent Hospital04-25-2022 Hospital Discharge instructions Patient Education 11/08/2021 [...] who: Are older than age 65. Are -[place]e. Are obese. Have a family history of [...] cells. Follow these instructions at home: Take tgqv-pab-phrhqpz and prescription medicines only as told by [...] 07/03/2006 Document Revised: 06/15/2018 Document Reviewed: 03/13/2017 [employer] Patient Education 2019 Xetawave. Follow Up Care 08/23/2021 13:26:07 With:KAEL JAMES, Anthony Lee, URL Address: [facility] [address], [place] [address]- [phone] When:05/10/2022 [facility] 04-21-2022 Miscellaneous Notes* Telephone Encounter - Clementine Aguilar RN - 11/04/2021 2:53 PM EDT Pt would like to get the 4th Covid vaccine when it's due. Dr Esqueda notified and gives the ok to proceed when due. Pt notified and verbalizes understanding. Clementine Aguilar RN documented in this encounterSt. Vincent Hospital04-21-2022 History of Present illness Narrative* Clementine [...] Information handout: Enzalutamide, Specialty Pharmacy Information : [facility] Special[facility] Pharmacy phone numbers: Yes [...] minutes Clementine Aguilar RN * Aida Luo [facility] - 11/04/2021 2:49 PM EDT Images [...] Each once daily. To test blood sugar Jzijyprzupfyl-Mchdpviw-Zbbhiv (MULTIVITAMIN 50 PLUS) tab Take 1 tablet [...] of chemotherapy NA - Followed up with [facility] for delivery of Free Xtandi Readiness [...] patient Kelseyluluchaka Luo RPh documented in this encounterSt. Vincent Hospital04-21-2022 Miscellaneous Notes* Telephone Encounter - Aida Luo RPh - 11/04/2021 10:54 AM EDT Confirmed with [employer] approval date 11/01/21 and that the specialty pharmacy, [facility] in [place], will reach out to Mr Felix 3-5 business days from approval date. If he does not hear from them by 11/10/21 we should call [facility] in [place] @ option 2. I informed Mr Felix of this, he has an appt 11/12/21 and said if he has not heard from them by then he will get their phone number from us. Rubin Luo RPh documented in this encounterSt. Vincent Hospital04-19-2022 Miscellaneous Notes* Telephone Encounter - Jennifer [...] him know to be expecting this call. [facility] will call patient to set up delivery for all fills. I do not see where he has had chemo education yet. Alba does he need to be set up with you? Thanks Rubin Luo [facility] * Telephone Encounter - Andreina Castillo [facility] - 11/01/2021 10:55 AM EDT Patient called today. We completed a conference call with [employer] - they were ableto obtain [...] We will proceed free drug application through [employer] [facility]. Pharmacy to reach out to patient 10/29/2021 to notify. Brina Wang RPh * Telephone Encounter - Brina Wang RPh - 10/28/2021 3:08 PM EDT Ambulatory Pharmacy Prior Authorization Note Provider Intervention Required?: No- Pharmacy completed on your behalf. Drug: Xtandi Cover My Meds Carter: [id number] Determination: Approved Prior Authorization/Case #: [id number] Prior Authorization Expiration: 10/28/2022 Time to PA Submission in CMM: 15 min Time to PA Determination in CMM: Same day Additional Information: Co-Pay $3,111.12 For questions relating to this submission, please contact [facility] at [phone] documented in this encounterSt. Vincent Hospital04-19-2022 Miscellaneous Notes* Telephone Encounter - Zohra Avila PA-C - 11/02/2021 12:00 PM EDT CBC and CMP orders placed Zohra Avila PA-C * Telephone Encounter - Katie Rosen MA - 11/02/2021 11:57 AM EDT Patient has an appt on 11/11/21. Would you like labs, if so place orders. Katie Rosen MA documented in this encounterSt. Vincent Hospital04-18-2022 Miscellaneous Notes* Telephone Encounter - Clementine [...] for him on the patient assistance program. ThanksRADHA documented in this encounterSt. Vincent Hospital04-14-2022 Miscellaneous Notes* Telephone Encounter - Clementine [...] back. Clementine Aguilar RN documented in this encounterSt. Vincent Hospital04-14-2022 Miscellaneous Notes* Telephone Encounter - Clementine Aguilar RN - 10/28/2021 1:12 PM EDT This encounter was opened in error. @[email or web address]@ documented in this encounterSt. Vincent Hospital04-11-2022 Miscellaneous Notes* Telephone Encounter - Christo Howard APRN.CNP - 10/25/2021 4:05 PM EDT Hold off for now. Christo Howard APRN.CNP * Telephone Encounter - Katie Rosen MA - 10/25/2021 11:01 AM EDT If patient needs labs, please sign/place orders for 10/28/21. Thanks. Katie Rosen MA documented in this encounterSt. Vincent Hospital01-01-2015 Evaluation note* Diagnosis Onset Date Resolution Status ASHD (arteriosclerotic heart disease) acute Cervical spondylosis acute Essential hypertension acute Hypercholesterolemia acute Malignant neoplasm of prostate July 17, 2014 acute Nonrheumatic aortic valve stenosis acute GRADY (obstructive sleep apnea) acute Type 2 diabetes mellitus with hyperglycemia acute [facility] Work Phone: Evaluation + Plan note Future Appointments Appointment Date:05/13/2022 08:45:00 AM Scheduled Provider:Anthony SCRUGGS MD Location:[facility] Appointment Type:URO Office Visit Diagnostic Tests Pending * PSA Total 11/08/21 Future Scheduled Tests Laboratory* Basic Metabolic Panel 09/20/21 [facility] evaluation + Plan note Future Appointments Appointment Date:10/28/2022 08:00:00 AM Scheduled Provider:Anthony SCRUGGS MD Location:[facility] Appointment Type:URO Office Visit Diagnostic Tests Pending * PSA Total 09/14/22 Future Scheduled Tests Laboratory* Basic Metabolic Panel 09/20/21 [facility] evaluation + Plan note Future Appointments Appointment Date:10/20/2023 08:45:00 AM Scheduled Provider:Anthony SCRUGGS MD Location:[facility] Appointment Type:URO Office Visit Diagnostic Tests Pending * PSA Total 04/17/23 [facility] evaluation + Plan note Future Appointments Appointment Date:04/19/2024 08:00:00 AM Scheduled Provider:Anthony SCRUGGS MD Location:[facility] Appointment Type:URO Office Visit Diagnostic Tests Pending * PSA Total 02/15/24 [facility] evaluation + Plan note Future Appointments Appointment Date:10/07/2024 09:15:00 AM Scheduled Provider:Anthony SCRUGGS MD Location:[facility] Appointment Type:URO Office Visit Diagnostic Tests Pending * PSA Total 08/17/24 [facility] evaluation + Plan note Future Appointments Appointment Date:09/22/2025 09:30:00 AM Scheduled Provider: Location:[facility] Appointment Type:URO Nurse Visit Appointment Date:09/29/2025 11:15:00 AM Scheduled Provider:Anthony SCRUGGS MD Location:[facility] Appointment Type:URO Office Visit Diagnostic Tests Pending * PSA Total 03/31/25 [facility] evaluation note* Diagnosis OPENED IN ERROR- Primary To allow closing an encounter opened in error (used in SmartSet) documented in this encounter [facility] note* Diagnosis Malignant neoplasm of prostate (HCC)- Primary Malignant neoplasm of prostate documented in this encounter [facility] note* Diagnosis Malignant neoplasm of prostate (HCC)- Primary Malignant neoplasm of prostate [facility] Malignant neoplasm of prostate (HCC)- Primary Malignant neoplasm of prostate 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 [facility] Diagnosis Malignant neoplasm of prostate (HCC)- Primary Malignant neoplasm of prostate [facility] Diagnosis Malignant neoplasm of prostate (HCC)- Primary Malignant neoplasm of prostate 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 [facility]* Diagnosis Malignant neoplasm of prostate (HCC)- Primary Malignant neoplasm of prostate [facility] Diagnosis Malignant neoplasm of prostate (HCC)- Primary Malignant neoplasm of prostate [facility] Diagnosis Malignant neoplasm of prostate (HCC)- Primary Malignant neoplasm of prostate [facility]* Diagnosis Malignant neoplasm of prostate (HCC)- Primary Malignant neoplasm of prostate 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[place] heart without angina pectoris, unspecified vessel or lesion type Essential hypertension Unspecified essential hypertension Type 2 diabetes mellitus without complication, without long-term current use of insulin (HCC) documented in this encounter [facility] noteNo [facility] [employer] Other Evaluation note* Diagnosis Malignant neoplasm of prostate (HCC)- Primary Malignant neoplasm of prostate Coronary artery disease involving [place] heart without angina pectoris, unspecified vessel or lesion type Essential hypertension Unspecified essential hypertension Type 2 diabetes mellitus without complication, without long-term current use of insulin (HCC) documented [facility]* Diagnosis Malignant neoplasm of prostate (HCC)- Primary Malignant neoplasm of prostate [facility] Diagnosis Malignant neoplasm of prostate (HCC)- Primary Malignant neoplasm of prostate documented [facility]* Diagnosis Malignant neoplasm of prostate (HCC)- Primary Malignant neoplasm of prostate Coronary artery disease involving [place] heart without angina pectoris, unspecified vessel or lesion type Essential hypertension Unspecified essential hypertension Type 2 diabetes mellitus without complication, without long-term current use of insulin (HCC) [facility] Neoplasm of unspecified behavior of bone, soft tissue, and skin Actinic keratosis documented in [facility] encounter [facility]* Diagnosis Malignant neoplasm of prostate (HCC)- Primary Malignant neoplasm of prostate [facility] Diagnosis Malignant neoplasm of prostate (HCC)- Primary Malignant neoplasm of prostate Essential hypertension Unspecified essential hypertension Coronary artery disease involving [place] heart without angina pectoris, unspecified vessel or [...] diabetes mellitus with hyperglycemia acute [facility] Work Phone: Evaluation note* Diagnosis Malignant neoplasm of prostate (HCC)- Primary Malignant neoplasm of prostate [facility] Diagnosis Malignant neoplasm of prostate (HCC)- Primary Malignant neoplasm of prostate [facility] Diagnosis Malignant neoplasm of prostate (HCC)- Primary Malignant neoplasm of prostate [facility] Diagnosis Malignant neoplasm of prostate (HCC)- Primary Malignant neoplasm of prostate [facility]* Diagnosis Malignant neoplasm of prostate (HCC)- Primary Malignant neoplasm of prostate Essential hypertension Unspecified essential hypertension Coronary artery disease involving [place] heart without angina pectoris, unspecified vessel or lesion type Type 2 diabetes mellitus without complication, without long-term current use of insulin (HCC) [facility] Diagnosis Malignant neoplasm of prostate (HCC)- Primary Malignant neoplasm of prostate [facility] Diagnosis Seborrheic keratosis- Primary Melanocytic nevus of trunk Benign neoplasm of skin of trunk, except scrotum Actinic keratosis Lentigines Psoriasis vulgaris Other psoriasis History of SCC (squamous cell carcinoma) of skin Personal history of other malignant neoplasm of skin [facility] [...] [place] [facility] Hospitalization History see surgical hx [place] Other History general Narrative - Reported* Type [...] [place] 08/2015 Hospitalization History see surgical hx [place] Other Hospital course Narrative No data available for this section [facility] progress note No data available for this section [facility] Medications Administered Section Inactive Administered Medications - [...] To Contact Diagnoses Actinic keratosis 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, 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 [address] [address] Referral ID Status Reason Start Date Expiration Date V isits Requested Visits Authorized [id number] Pending Review 1 1 Reason *FU 06/06 Right fr ontal sinus mass and cerumen impaction Diagnosis 1 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) Diagnosis 2 Impacted cerumen of right ear (H61.21) Referral Organization [facility] Referring Provider First Name Jamar Referring Provider Last Name Juan David Referring Provider Specialty Internal Me dicine Referred Organization [facility] Referred Provider Emelina Louis Referred Address ,[place], [place],[address] Referred Provider Specialty Ear, Nose an d [...] or prosecute any alcohol or drug abuse patient.[facility] the event this information is protected by the Federal Confidentiality of Alcohol and Drug Abuse Patient Records regulations: The Federal rules restrict any use of the information to criminally investigate or prosecute any alcohol or drug abuse patient.[facility] the event this information is protected by the Federal Confidentiality of Alcohol and Drug Abuse Patient Records regulations: The Federal rules restrict any use of the information to criminally investigate or prosecute any alcohol or drug abuse patient.[facility] the event this information is protected by the Federal Confidentiality of Alcohol and Drug Abuse Patient Records regulations: The Federal rules restrict any use of the information to criminally investigate or prosecute any alcohol or drug abuse patient.[facility] the event this information is protected by the Federal Confidentiality of Alcohol and Drug Abuse Patient Records regulations: The Federal rules restrict any use of the information to criminally investigate or prosecute any alcohol or drug abuse patient.[facility] the event this information is protected by the Federal Confidentiality of Alcohol and Drug Abuse Patient Records regulations: The Federal rules restrict any use of the information to criminally investigate or prosecute any alcohol or drug abuse patient.[facility] the event this information is protected by the Federal Confidentiality of Alcohol and Drug Abuse Patient Records regulations: The Federal rules restrict any use of the information to criminally investigate or prosecute any alcohol or drug abuse patient.[facility] the event this information is protected by the Federal Confidentiality of Alcohol and Drug Abuse Patient Records regulations: The Federal rules restrict any use of the information to criminally investigate or prosecute any alcohol or drug abuse patient.[facility] the event this information is protected by the Federal Confidentiality of Alcohol and Drug Abuse Patient Records regulations: The Federal rules restrict any use of the information to criminally investigate or prosecute any alcohol or drug abuse patient.[facility] the event this information is protected by the Federal Confidentiality of Alcohol and Drug Abuse Patient Records regulations: The Federal rules restrict any use of the information to criminally investigate or prosecute any alcohol or drug abuse patient.[facility] the event this information is protected by the Federal Confidentiality of Alcohol and Drug Abuse Patient Records regulations: The Federal rules restrict any use of the information to criminally investigate or prosecute any alcohol or drug abuse patient.[facility] the event this information is protected by the Federal Confidentiality of Alcohol and Drug Abuse Patient Records regulations: The Federal rules restrict any use of the information to criminally investigate or prosecute any alcohol or drug abuse patient.[facility] the event this information is protected by the Federal Confidentiality of Alcohol and Drug Abuse Patient Records regulations: The Federal rules restrict any use of the information to criminally investigate or prosecute any alcohol or drug abuse patient.[facility] the event this information is protected by the Federal Confidentiality of Alcohol and Drug Abuse Patient Records regulations: The Federal rules restrict any use of the information to criminally investigate or prosecute any alcohol or drug abuse patient.[facility] the event this information is protected by the Federal Confidentiality of Alcohol and Drug Abuse Patient Records regulations: The Federal rules restrict any use of the information to criminally investigate or prosecute any alcohol or drug abuse patient.[facility] the event this information is protected by the Federal Confidentiality of Alcohol and Drug Abuse Patient Records regulations: The Federal rules restrict any use of the information to criminally investigate or prosecute any alcohol or drug abuse patient.[facility] the event this information is protected by the Federal Confidentiality of Alcohol and Drug Abuse Patient Records regulations: The Federal rules restrict any use of the information to criminally investigate or prosecute any alcohol or drug abuse patient.[facility] the event this information is protected by the Federal Confidentiality of Alcohol and Drug Abuse Patient Records regulations: The Federal rules restrict any use of the information to criminally investigate or prosecute any alcohol or drug abuse patient.[facility] the event this information is protected by the Federal Confidentiality of Alcohol and Drug Abuse Patient Records regulations: The Federal rules restrict any use of the information to criminally investigate or prosecute any alcohol or drug abuse patient.[facility] the event this information is protected by the Federal Confidentiality of Alcohol and Drug Abuse Patient Records regulations: The Federal rules restrict any use of the information to criminally investigate or prosecute any alcohol or drug abuse patient.[facility] the event this information is protected by the Federal Confidentiality of Alcohol and Drug Abuse Patient Records regulations: The Federal rules restrict any use of the information to criminally investigate or prosecute any alcohol or drug abuse patient.[facility] the event this information is protected by the Federal Confidentiality of Alcohol and Drug Abuse Patient Records regulations: The Federal rules restrict any use of the information to criminally investigate or prosecute any alcohol or drug abuse patient.[facility] the event this information is protected by the Federal Confidentiality of Alcohol and Drug Abuse Patient Records regulations: The Federal rules restrict any use of the information to criminally investigate or prosecute any alcohol or drug abuse patient.[facility] the event this information is protected by the Federal Confidentiality of Alcohol and Drug Abuse Patient Records regulations: The Federal rules restrict any use of the information to criminally investigate or prosecute any alcohol or drug abuse patient.[facility] the event this information is protected by the Federal Confidentiality of Alcohol and Drug Abuse Patient Records regulations: The Federal rules restrict any use of the information to criminally investigate or prosecute any alcohol or drug abuse patient.[facility] the event this information is protected by the Federal Confidentiality of Alcohol and Drug Abuse Patient Records regulations: The Federal rules restrict any use of the information to criminally investigate or prosecute any alcohol or drug abuse patient.[facility] the event this information is protected by the Federal Confidentiality of Alcohol and Drug Abuse Patient Records regulations: The Federal rules restrict any use of the information to criminally investigate or prosecute any alcohol or drug abuse patient.[facility] the event this information is protected by the Federal Confidentiality of Alcohol and Drug Abuse Patient Records regulations: The Federal rules restrict any use of the information to criminally investigate or prosecute any alcohol or drug abuse patient.[facility] the event this information is protected by the Federal Confidentiality of Alcohol and Drug Abuse Patient Records regulations: The Federal rules restrict any use of the information to criminally investigate or prosecute any alcohol or drug abuse patient.[facility] the event this information is protected by the Federal Confidentiality of Alcohol and Drug Abuse Patient Records regulations: The Federal rules restrict any use of the information to criminally investigate or prosecute any alcohol or drug abuse patient.[facility] the event this information is protected by the Federal Confidentiality of Alcohol and Drug Abuse Patient Records regulations: The Federal rules restrict any use of the information to criminally investigate or prosecute any alcohol or drug abuse patient.[facility] the event this information is protected by the Federal Confidentiality of Alcohol and Drug Abuse Patient Records regulations: The Federal rules restrict any use of the information to criminally investigate or prosecute any alcohol or drug abuse patient.[facility] the event this information is protected by the Federal Confidentiality of Alcohol and Drug Abuse Patient Records regulations: The Federal rules restrict any use of the information to criminally investigate or prosecute any alcohol or drug abuse patient.[facility]In the event this information is protected by the Federal Confidentiality of Alcohol and Drug Abuse Patient Records regulations: The Federal rules restrict any use of the information to criminally investigate or prosecute any alcohol or drug abuse patient.[facility] the event this information is protected by the Federal Confidentiality of Alcohol and Drug Abuse Patient Records regulations: The Federal rules restrict any use of the information to criminally investigate or prosecute any alcohol or drug abuse patient.[facility]In the event this information is protected by the Federal Confidentiality of Alcohol and Drug Abuse Patient Records regulations: The Federal rules restrict any use of the information to criminally investigate or prosecute any alcohol or drug abuse patient.[facility]In the event this information is protected by the Federal Confidentiality of Alcohol and Drug Abuse Patient Records regulations: The Federal rules restrict any use of the information to criminally investigate or prosecute any alcohol or drug abuse patient.[facility]In the event this information is protected by the Federal Confidentiality of Alcohol and Drug Abuse Patient Records regulations: The Federal rules restrict any use of the information to criminally investigate or prosecute any alcohol or drug abuse patient.[facility]In the event this information is protected by the Federal Confidentiality of Alcohol and Drug Abuse Patient Records regulations: The Federal rules restrict any use of the information to criminally investigate or prosecute any alcohol or drug abuse patient.[facility] Care Teams (unrecognized sec tion and [...] September 02, 2024 End: September 02, 2024 Applied Behavior Science Specialist Relationship Specialty Start Date End Date Jamar Fall DO PCP - General Internal Medicine 08/04/14 Applied Behavior Science Specialist Relationship Specialty Start Date End Date Jamar Fall DO PCP - General Internal Medicine 08/04/14 Applied Behavior [employer] Specialist Relationship Specialty Start Date End Date Jamar Fall DO PCP - General Internal Medicine 08/04/14 Applied Behavior [employer] Specialist Relationship Specialty Start Date End Date Jamar Fall DO PCP - General Internal Medicine 08/04/14 Marco A Esqueda MD [facility] [place] [address] Physician Hematology/Oncology 11/02/21 Christo Howard, FOUNTAIN ATTENDANT.[place] [address] [place], [place] [id number] Nurse Practitioner Hematology/Oncology 11/02/21 Clementine Aguilar, RN [address] [place] [address] Specialty Construction Ironworker Helper Hematology/Oncology 11/02/21 Applied [employer] Specialist Relationship Specialty Start Date End Date Jamar Fall, PCP - General Internal Medicine 08/04/14 Marco A Esqueda MD [address] [place] [place] [address] Physician Hematology/Oncology 11/02/21 Christo Howard, FOUNTAIN ATTENDANT.LOGGER [address] [place] [place] [address] Nurse Practitioner Hematology/Oncology 11/02/21 Clementine Aguilar, RN [address] [place] [place] [address] Specialty Construction Ironworker Helper Hematology/Oncology 11/02/21 Applied Behavior [employer] Specialist Relationship Specialty Start Date End Date Jamar Fall DO PCP - General Internal Medicine 08/04/14 Marco A Esqueda MD [address] [place] [place] [address] Physician Hematology/Oncology 11/02/21 Christo Howard, FOUNTAIN ATTENDANT.LOGGER [address] [place] [place] [address] Nurse Practitioner Hematology/Oncology 11/02/21 Clementine Aguilar, RN [address] [place] [place] [address] Specialty Construction Ironworker Helper Hematology/Oncology 11/02/21 Applied Behavior [employer] Specialist Relationship Specialty Start Date End Date Jamar Fall DO PCP - General Internal Medicine 08/04/14 Marco A Esqueda MD [address] [place], [place] [id number] Physician Hematology/Oncology 11/02/21 Christo Howard, FOUNTAIN ATTENDANT.LOGGER [address] [place] [place] [address] Nurse Practitioner Hematology/Oncology 11/02/21 Clementine Aguilar, ANITHA [address] [place] [place] [address] Specialty Construction Ironworker Helper Hematology/Oncology 11/02/21 Applied Behavior Science Specialist Relationship Specialty Start Date End Date Jamar Fall, DO PCP - General Internal Medicine 08/04/14 Marco A Esqueda MD [address] [place] [place] [address] Physician Hematology/Oncology 11/02/21 Christo Howard, FOUNTAIN ATTENDANT.LOGGER [address] [place] [place] [address] Nurse Practitioner Hematology/Oncology 11/02/21 Clementine Aguilar, RN [address] [place] [place] [address] Specialty Construction Ironworker Helper Hematology/Oncology 11/02/21 Applied Behavior Science Specialist Relationship Specialty Start Date End Date Jamar Fall, DO PCP - General Internal Medicine 08/04/14 Marco A Esqueda MD [address] [place] [place] [address] Physician Hematology/Oncology 11/02/21 Christo Howard, FOUNTAIN ATTENDANT.LOGGER [address] [place] [place] [address] Nurse Practitioner Hematology/Oncology 11/02/21 Clementine Aguilar, RN [address] [place], [place] [id number] Specialty Construction Ironworker Helper Hematology/Oncology 11/02/21 Applied Behavior Science Specialist Relationship Specialty Start Date End Date Jamar Fall, DO PCP - General Internal Medicine 08/04/14 Marco A Esqueda MD [address] [place] [place] [address] Physician Hematology/Oncology 11/02/21 Christo Howard, FOUNTAIN ATTENDANT.[facility] [address] [place] [address] Nurse Practitioner Hematology/Oncology 11/02/21 Clementine Aguilar, ANITHA [address] [place] [address] [place] [address] Specialty Construction Ironworker Helper Hematology/Oncology 11/02/21 Applied Behavior Science Specialist Relationship Specialty Start Date End Date Jamar Fall DO PCP - General Internal Medicine 08/04/14 Marco A Esqueda MD [address] [place] [place] [address] Physician Hematology/Oncology 11/02/21 Christo Howard, FOUNTAIN ATTENDANT.LOGGER [address] [place] [place] [address] Nurse Practitioner Hematology/Oncology 11/02/21 Clementine Aguilar, RN [address] [place] [place] [address] Specialty Construction Ironworker Helper Hematology/Oncology 11/02/21 Applied Behavior Science Specialist Relationship Specialty Start Date End Date Jamar Fall DO PCP - General Internal Medicine 08/04/14 Marco A Esqueda MD [address] [place] [address] Physician Hematology/Oncology 11/02/21 Christo Howard, FOUNTAIN ATTENDANT.LOGGER [address] [place] [address] Nurse Practitioner Hematology/Oncology 11/02/21 Clementine Aguilar, RN [address] [place] [place] [address] Specialty Construction Ironworker Helper Hematology/Oncology 11/02/21 Applied [employer] Specialist Relationship Specialty Start Date End Date Jamar Fall, DO PCP - General Internal Medicine 08/04/14 Marco A Esqueda MD [address] [place] [place] [address] Physician Hematology/Oncology 11/02/21 Christo Howard, FOUNTAIN ATTENDANT.LOGGER [address] [place] [address] Nurse Practitioner Hematology/Oncology 11/02/21 Clementine Aguilar, RN [address] [place] [address] Specialty Construction Ironworker Helper Hematology/Oncology 11/02/21 Applied Behavior [employer] Specialist Relationship Specialty Start Date End Date Jamar Fall, DO PCP - General Internal Medicine 08/04/14 Marco A Esqueda MD [address] [place] [address] Physician Hematology/Oncology 11/02/21 Christo Howard, FOUNTAIN ATTENDANT.LOGGER [address] [place] [address] Nurse Practitioner Hematology/Oncology 11/02/21 Clementine Aguilar, RN [address] [place] [address] Specialty Construction Ironworker Helper Hematology/Oncology 11/02/21 Applied Behavior [employer] Specialist Relationship Specialty Start Date End Date Jamar Fall, PCP - General Internal Medicine 08/04/14 Marco A Esqueda MD [address] [place] [address] Physician Hematology/Oncology 11/02/21 Christo Howard, FOUNTAIN ATTENDANT.LOGGER [address] [place] [address] Nurse Practitioner Hematology/Oncology 11/02/21 Clementine Aguilar, ANITHA [address] [place] [address] Specialty Construction Ironworker Helper Hematology/Oncology 11/02/21 Applied [employer] Specialist Relationship Specialty Start Date End Date Jamar Fall DO PCP - General Internal Medicine 08/04/14 Marco A Esqueda MD [address] [place] [address] Physician Hematology/Oncology 11/02/21 Christo Howard, FOUNTAIN ATTENDANT.LOGGER [address] [facility] [place] [address] Nurse Practitioner Hematology/Oncology 11/02/21 Clementine Aguilar, RN [address] [place] [address] Specialty Construction Ironworker Helper Hematology/Oncology 11/02/21 Applied Behavior [employer] Specialist Relationship Specialty Start Date End Date Jamar Fall DO PCP - General Internal Medicine 08/04/14 Marco A Esqueda MD [address] [facility] [place] [address] Physician Hematology/Oncology 11/02/21 Christo Howard, FOUNTAIN ATTENDANT.LOGGER [address] [place] [address] Nurse Practitioner Hematology/Oncology 11/02/21 Clementine Aguilar, ANITHA [address] [facility] [place] [address] Specialty Construction Ironworker Helper Hematology/Oncology 11/02/21 Applied Behavior [employer] Specialist Relationship Specialty Start Date End Date Jamar Fall DO PCP - General Internal Medicine 08/04/14 Marco A Esqueda MD [address] [facility] [place] [address] Physician Hematology/Oncology 11/02/21 Christo Howard, FOUNTAIN ATTENDANT.LOGGER [address] [place] [address] Nurse Practitioner Hematology/Oncology 11/02/21 Clementine Aguilar, ANITHA [address] [facility] [place] [address] Specialty Construction Ironworker Helper Hematology/Oncology 11/02/21 Applied Behavior [employer] Specialist Relationship Specialty Start Date End Date Jamar Fall DO PCP - General Internal Medicine 08/04/14 Marco A Esqueda MD [address] [facility] [place] [address] Physician Hematology/Oncology 11/02/21 Christo Howard, FOUNTAIN ATTENDANT.LOGGER [address] [place] [address] Nurse Practitioner Hematology/Oncology 11/02/21 Clementine Aguilar, ANITHA [address] [place] [address] Specialty Construction Ironworker Helper Hematology/Oncology 11/02/21 Applied [employer] Specialist Relationship Specialty Start Date End Date Jamar Fall DO PCP - General Internal Medicine 08/04/14 Marco A Esqueda MD [address] [place] [address] [place] [address] Physician Hematology/Oncology 11/02/21 Christo Howard, FOUNTAIN ATTENDANT.LOGGER [address] [place] [address] [place] [address] Nurse Practitioner Hematology/Oncology 11/02/21 Clementine Aguilar, ANITHA [address] [place] [address] Specialty Construction Ironworker Helper Hematology/Oncology 11/02/21 Applied Behavior [employer] Specialist Relationship Specialty Start Date End Date Jamar Fall MD [address] [place] [address] PCP - General Internal Medicine 05/31/23 Applied Behavior [employer] Specialist Relationship Specialty Start Date End Date Jamar Fall MD [address] [place] [address] PCP - General Internal Medicine 05/31/23 Applied Behavior [employer] Specialist Relationship Specialty Start Date End Date Jamar Fall DO PCP - General Internal Medicine 08/04/14 Marco A Esqueda MD [address] [place] [address] Physician Hematology/Oncology 11/02/21 Christo Howard, FOUNTAIN ATTENDANT.LOGGER [address] [place] [address] Nurse Practitioner Hematology/Oncology 11/02/21 Clementine Aguilar, ANITHA [address] [place] [address] Specialty Construction Ironworker Helper Hematology/Oncology 11/02/21 Applied Behavior [employer] Specialist Relationship Specialty Start Date End Date Jamar Fall DO PCP - General Internal Medicine 08/04/14 Marco A Esqueda MD [address] [place] [address] [place] [address] Physician Hematology/Oncology 11/02/21 Christo Howard, FOUNTAIN ATTENDANT.LOGGER [address] [place] [address] Nurse Practitioner Hematology/Oncology 11/02/21 Clementine Aguilar, ANITHA [address] [place] [address] Specialty Construction Ironworker Helper Hematology/Oncology 11/02/21 Team Status: Active Member Role [...] November 23, 2023 End: November 23, 2023 Applied Behavior Science Specialist Relationship Specialty Start Date End Date Jamar Fall JessicaDO PCP - General Internal Medicine 08/04/14 Marco A Esqueda MD [address] [place] [address] Physician Hematology/Oncology 11/02/21 Christo Howard, FOUNTAIN ATTENDANT.LOGGER [address] [facility] [place] [address] Nurse Practitioner Hematology/Oncology 11/02/21 Clementine Aguilar, ANTIHA [address] [place] [address] Specialty Construction Ironworker Helper Hematology/Oncology 11/02/21 Applied Behavior [employer] Specialist Relationship Specialty Start Date End Date Jamar Fall DO PCP - General Internal Medicine 08/04/14 Marco A Esqueda MD [address] [facility] [place] [address] Physician Hematology/Oncology 11/02/21 Christo Howard, FOUNTAIN ATTENDANT.LOGGER [address] [facility] [place] [address] Nurse Practitioner Hematology/Oncology 11/02/21 Clementine Aguilar, ANITHA [address] [place] [address] Specialty Construction Ironworker Helper Hematology/Oncology 11/02/21 Team Status: Active Member Role Status Dates Jamar Fall DO Primary Care Provider Active Start: January 25, 2024 SAMAN Collins Attending Provider Active Start: January 25, 2024 Team Status: Inactive Member Role Status Dates Jamar Fall DO Primary Care Provide r, Attending Provider Active Start: March 26, 2024 End: March 26, 2024 Applied Behavior [employer] Specialist Relationship Specialty Start Date End Date Jamar Fall DO PCP - General Internal Medicine 08/04/14 Marco A Esqueda MD [address] [place] [address] Physician Hematology/Oncology 11/02/21 Christo Howard, FOUNTAIN ATTENDANT.LOGGER [address] [place] [address] Nurse Practitioner Hematology/Oncology 11/02/21 Clementine Aguilar, ANITHA [address] [facility] [place] [address] Specialty Construction Ironworker Helper Hematology/Oncology 11/02/21 Applied Behavior [employer] Specialist Relationship Specialty Start Date End Date Jamar Fall DO PCP - General Internal Medicine 08/04/14 Marco A Esqueda MD [address] [place] [address] Physician Hematology/Oncology 11/02/21 Christo Howard, FOUNTAIN ATTENDANT.LOGGER [address] [place] [address] Nurse Practitioner Hematology/Oncology 11/02/21 Clementine Aguilar, ANITHA [address] [facility] [place] [address] Specialty Construction Ironworker Helper Hematology/Oncology 11/02/21 Applied Behavior Science Specialist Relationship Specialty Start Date End Date Jamar Fall DO PCP - General Internal Medicine 08/04/14 Marco A Esqueda MD [address] [place] [address] Physician Hematology/Oncology 11/02/21 Christo Howard, FOUNTAIN ATTENDANT.LOGGER [address] [facility] [place] [address] Nurse Practitioner Hematology/Oncology 11/02/21 Clementine Aguilar, ANITHA [address] [place] [address] Specialty Construction Ironworker Helper Hematology/Oncology 11/02/21 Applied Behavior Science Specialist Relationship Specialty Start Date End Date Jamar Fall DO PCP - General Internal Medicine 08/04/14 Marco A Esqueda MD [address] [place] [address] Physician Hematology/Oncology 11/02/21 Christo Howard, FOUNTAIN ATTENDANT.LOGGER [address] [facility] [place] [address] Nurse Practitioner Hematology/Oncology 11/02/21 Clementine Aguilar, RN [address] [place] [address] Specialty Construction Ironworker Helper Hematology/Oncology 11/02/21 Applied Behavior Science Specialist Relationship Specialty Start Date End Date Jamar Fall DO PCP - General Internal Medicine 08/04/14 Marco A Esqueda MD [address] [place] [address] [place] [address] Physician Hematology/Oncology 11/02/21 Christo Howard APRN.LOGGER [address] [place] [address] [place] [address] Nurse Practitioner Hematology/Oncology 11/02/21 Clementine Aguilar, ANITHA [address] [place] [address] [place] [address] Specialty Construction Ironworker Helper Hematology/Oncology 11/02/21 Applied Behavior Science Specialist Relationship Specialty Start Date End Date Jamar Fall DO [address] [place] [id number] PCP - General Internal Medicine 05/31/23 Applied Behavior Science Specialist Relationship Specialty Start Date End Date Jamar Fall DO [address] [place] [id number] PCP - General Internal Medicine 05/31/23 Reason [...] DENOSUMAB INJECTION Marco A Esqueda MD [address] [place] [address] [place] [address] Himanshu Treat Ariella [address] [place] [address] Referral ID Status Reason Start Date Expiration Date V isits Requested Visits Authorized [id number] Authorized 11/11/2021 07/16/2022 99 99 Reason Comments [...] Esqueda MD [address] [place] [address] Lety Holguin MD [address] [place] [address] Referral ID Status Reason Start Date Expiration Date Visits Re quested Visits Authorized [id number] Closed 08/04/2023 01/31/2024 1 1 Reason Comments [...] and content) DATE CREATED AUTHOR 10/31/2022 [facility] DATE CREATED AUTHOR AUTHOR'S ORGANIZ ATION 03/02/2024 [facility] DATE CREATED AUTHOR AUTHOR'S ORGANIZ ATION 02/22/2025 [facility] DATE CREATED AUTHOR AUTHOR'S ORGANIZ ATION 02/28/2025 [facility] DATE CREATED AUTHOR AUTHOR'S ORGANIZ ATION 03/22/2025 [facility] DATE CREATED AUTHOR AUTHOR'S ORGANIZ ATION 04/01/2025 [facility] Inactive Administered Medications - up to [...] BE BASED ON THE PRIMARY CLINICAL RECORDS. [facility] [employer] [facility]. provides no warranty or guarantee of the accuracy or completeness of information in this document.
--- NOTE | 2025-04-03 07:00 | CA_ITS ---
Patient Name: PABLO ONEIL MR#: [id number] : 1945 Exam Date: 04/03/2025 Ordering Doctor: ANIRUDH CACERES CNP ECHOCARDIOGRAM REPORT PROCEDURE: CA ECHO DOPPLER COMPLETE INDICATIONS: Aortic valve stenosis COMPARISON: None. DESCRIPTION: COMPLETE ECHOCARDIOGRAM Real-time transthoracic echocardiography with 2D, M-mode, spectral and color flow Doppler performed. QUALITY: Technical quality was good. LEFT VENTRICLE: Normal chamber size. Mild concentric left ventricular hypertrophy. Global left ventricular systolic function is normal. LV EF: Visual estimation of left ventricular ejection fraction is 55-60%. DIASTOLIC: Grade I diastolic dysfunction. ATRIAL SEPTUM: LEFT ATRIUM: Moderate dilatation. RIGHT ATRIUM: Moderate dilatation. RIGHT VENTRICLE: Mild dilatation. Normal right ventricular systolic function. TRICUSPID VALVE: Normal mobility and thickness. No stenosis with moderate regurgitation. No evidence of pulmonary hypertension. RVSP 33 mmHg MITRAL VALVE: Mildly thickened with normal mobility. No evidence of mitral valve stenosis. There is no mitral annular calcification. Mild mitral regurgitation. AORTIC VALVE: Normal trileaflet appearance. Moderately calcified aortic valve. Moderately diminished mobility. Doppler velocity suggest moderate aortic valve stenosis. DVI 0.33, ROGER 1.3 cm2, Vmax 3.3 m/s, peak/mean gradients 43/26mmHg. Mild to moderate aortic regurgitation. AORTIC ROOT: Normal diameter and appearance, measuring 3.4 cm. The ascending aorta is normal in size measuring 3.3 cm. PULMONIC VALVE: Normal thickness and mobility. No stenosis. Mild regurgitation. PERICARDIUM: No evidence of pericardial effusion. IVC: Collapses with inspiration. Normal size. PLEURA: CONCLUSION: 1. Mild concentric left ventricular hypertrophy with normal systolic function. LVEF is estimated at 55 to 60%. 2. Mildly dilated right ventricle with normal systolic function. 3. Moderate biatrial dilatation. 4. Grade 1 diastolic dysfunction. 5. Moderate aortic valve stenosis with mild to moderate regurgitation. 6. Moderate tricuspid regurgitation. 7. Mild mitral regurgitation. 8. Normal right-sided pressures. Adult Echocardiography Procedure Report Left Ventricle LVEDD (3.7 - 5.6 cm): 4.27 cm LVESD (2.2 - 4.0 cm): 3.30 cm LVIVS thickness (0.6 - 1.2 cm): 1.28 cm LVPW thickness (0.5 - 1.0 cm): 1.27 cm e': 0.09 m/s E - e': 9.04 LVOT Max Gradient: 4.85 mm[Hg] LVOT Area (cm2): 1.10 m/s Peak Velocity (LVOT): 1.10 m/s Mean Velocity (LVOT): 0.66 m/s LVOT Diameter 2.28 cm Left Atrium LA Volume Index (2D A2C): 37.12 ml/m2 Left Atrium Systolic Dimension: 4.57 cm Mitral Valve MV E to A Ratio: 0.73 Mitral Valve A-Wave Peak Velocity: 1.17 m/s Mitral Valve E-Wave Peak Velocity: 0.85 m/s Right Ventricle RV Internal Diastolic Dimension: 4.82 cm Aorta AO Root Diam: 3.37 cm Ascending Ao Diam: 3.34 cm Aortic Valve AoV Area (Peak Kael): 1.37 cm2, 1.36 cm2 AoV Area (VTI): 1.32 cm2, 1.30 cm2 Deceleration [place]: 1.85 m/s2 Pressure Half-Time: 545.14 ms Peak Velocity(Antegrade Flow): 3.28 m/s, 3.25 m/s Peak Gradient(Antegrade Flow): 43.16 mm[Hg], 42.26 mm[Hg] Mean Velocity(Antegrade Flow): 2.39 m/s, 2.38 m/s Mean Gradient(Antegrade Flow): 25.56 mm[Hg], 25.50 mm[Hg] Velocity Time Integral: 88.16 cm, 86.11 cm Tricuspid Valve Peak Velocity (Regurgitant Flow): 2.62 m/s, 2.65 m/s, 2.72 m/s Pulmonic Valve Mean Gradient: 1.63 mm[Hg] Mean Velocity: 0.60 m/s Peak Velocity: 0.93 m/s, 0.99 m/s Peak Gradient: 3.95 mm[Hg], 3.47 mm[Hg] Right Atrium Right Atrium Systolic Pressure: 67.78 ml, 67.78 ml Dictated by: Faizan Carreon M.D. on 04/03/2025 at 18:40 Approved by: Faizan Carreon M.D. on 04/03/2025 at 18:51
--- NOTE | 2025-04-03 08:00 | NM_ITS ---
Patient Name: PABLO ONEIL MR#: [id number] : 1945 Exam Date: 04/03/2025 Ordering Doctor: ANIRUDH CACERES CNP RADIOLOGY REPORT PROCEDURE: NM CHRISTA PERF SPECT REST STR COMPARISON: None. INDICATIONS: CORONARY ARTERY DISEASE, FATIGUE TECHNIQUE: Exam Description: Stress/Rest one day protocol gated SPECT Rest Imagin.8 mCi Tc-99m Cardiolite IV on 04/03/2025 Stress Imaging 31.0 mCi Tc-99m Cardiolite IV on 04/03/2025 Exercise Protocol: 0.4 mg Lexiscan given IV Heart Rate (bpm): Rest: 55 Max: 75 PMHR: 53 Blood Pressure: Rest: 159/80 Max: 159/80 Symptoms: Rest and peak stress ECG findings were pending, and the exercise portion of the study was pending per attending physician [facility]. For more details, please see separate cardiac stress test report. FINDINGS: QUALITY OF STUDY: Good PERFUSION DEFECT: LOCATION: N/A SIZE: N/A SEVERITY: N/A TYPE: N/A WALL MOTION: Normal wall motion LV SIZE: 128 mL. TID / TCD: 0.9 LVEF: Calculated EF 56%. SUMMARY: Myocardial perfusion imaging study CONCLUSION: 1. Myocardial perfusion is normal 2. Normal left ventricular systolic function is normal; EF 56% 3. No significant transient ischemic dilatation Dictated by: Bridger Mulligan M.D. on 04/04/2025 at 08:41 Approved by: Bridger Mulligan M.D. on 04/04/2025 at 08:42
[2025-04-03] MEDS: REGADENOSON 0.4 MG/5 ML SYRINGE IV (09:40)
--- NOTE | 2025-04-03 09:40 | PC.NURSE ---
Nursing Note Cardiac Stress Test Reviewed: Medication, allergies and patient history reviewed. Stress Test: [x ] Patient tolerated stress test well. [ ] Patient unable to tolerate walking on treadmill. Switched to Lexiscan stress test. [x ] No chest pain noted per patient [ ] Chest pain that resolved prior to leaving stress lab. [x ] No dyspnea noted. [ ] Dyspnea that resolved prior to leaving stress lab. [ x] Patient left stress lab asymptomatic and hemodynamically stable. [ ] Patient taken to the Emergency Room due to non-resolving symptoms following stress test. [ ] Patient achieved target heart rate. [ ] Patient unable to achieve target heart rate. [ ] Aminophylline administered as reversal agent to Lexiscan (Regadenoson). [ ] Nitro administered. Nursing Comments:Pt had Lexiscan test done. Pt tolerated well. Ambulated to cafeteria for breakfast prior to second set of images.
--- NOTE | 2025-04-04 16:27 | P.STRESS_ITS ---
Stress Test Stress Test Allergies Allergy/AdvReac Type Severity Reaction Status Date / Time Penicillins Allergy Mild Rash Verified 02/17/25 08:31 Requesting physician: ANIRUDH CACERES Procedure: Lexiscan nuclear stress test General Information: Reason for Stress Test: [Coronary artery disease and fatigue and dyspnea on exertion] Cardiac History and Risk Factors: [History of coronary artery disease and CABG, diabetes mellitus, hyperlipidemia] Resting 12 - Lead Electrocardiogram: Resting twelve-lead EKG showed sinus bradycardia with first-degree AV block, heart rate 53 bpm left bundle branch block with ST-T abnormalities in inferior and lateral leads. Resting blood pressure 159/80 mmHg. Patient received a Lexiscan 0.4 mg IV injection and he was monitored for few minutes after that with peak heart rate 75 bpm which represents 53% of age- predicted maximum heart rate and peak blood pressure of 159/80 mmHg Patient did not report any symptoms throughout the test. EKG throughout the test did not show any significant changes from baseline and no significant arrhythmias Stress Test: Protocol: [Lexiscan] Exercise Capacity: [Not applicable] Blood Pressure Response: [Normal] Rhythm: [Sinus rhythm, no arrhythmia] ST - Response: [No changes] Patient Response: [No seen's] Interpretation: Nondiagnostic Lexiscan EKG stress test due to baseline EKG changes, however no significant changes with Lexiscan The myocardial perfusion nuclear stress images result is reported separately Milagros Roberts MD [facility]
== END 2025-04-03 06:53 | disposition home or self-care (01) ==
LOC: CARD 06:52
PROVIDERS: PCP Internal Medicine; Visit Provider Nurse Practitioner Family
DX: I25.10 Atherosclerotic heart disease of native coronary artery without angina pectoris (principal); R53.83 Other fatigue
CPT/HCPCS: 78452; 93017; 93306; A9500; J2785

== ENCOUNTER 2025-05-29 08:05 | Outpatient (OUT) | payer MEDICARE, OTHER, SELFPAY ==
--- OUTSIDE RECORDS SUMMARY | 2025-05-22 11:00 | XMS_ITS | Encounter Summary ---
Author Organization [facility] Address [address] [place], [place] [address] Care Team Providers Care Video Editor Name Role Phone Jamar Jones DO Primary Care Provider Galina Wall APRN.ELECTRON GUN INSPECTOR Unavailable [phone] Clementine Aguilar RN Unavailable [phone] Saul Galdamez MD Unavailable [phone] Source Comments In the event this information is protected by the Federal Confidentiality of Alcohol and Drug AbusePatient Records regulations: The Federal rules restrict any use of the information to criminally investigate or prosecute any alcohol or drug abuse patient.[facility] Reason for Visit * ReasonCommentsMalignant neoplasm of prostateFollow up Encounter Details DateTypeDepartmentCare Team (Latest Contact Info)Jxftjmjtbpz10/06/2025 11:00 AM ESTVisit (SP) Office Hematology/Oncology [address] [place] [place] [address] Chary Hodge APRN.ELECTRON GUN INSPECTOR [address] [place] [address] Malignant neoplasm of prostate (HCC) (Primary Dx); Anemia, unspecified type; Other osteoporosis without current pathological fracture; Secondary malignant neoplasm of bone (HCC); Encounter for antineoplastic chemotherapy; Lactose intolerance Social History Tobacco UseTypesPacks/DayYears UsedDateSmoking Tobacco: NeverPassive Smoke Exposure: NeverSmokeless Tobacco: NeverAlcohol UseStandard Drinks/WeekComments Yes0 (1 standard drink = 0.6 oz pure alcohol)1 day/wkPHQ-2AnswerDate Recorded PHQ-2 yddca70007/20/2024rea Deprivation IndexAnswerDate RecordedNational Score (1-100), lower number is lower mhma5044State Score (1-10), lower number is lower kbux656ata from: https://www.neighborhoodatlas.[facility].edu/. Last address used for vrebkrzkpom[address]/[birth year]23Sex and Gender InformationValueDate Recorded Sex Assigned at JzgjjQcdv80/29/2022 11:48 AM EDTLegal NmsVode3708/04/2014 8:03 AM ESTGender RncknizzMeyb29/29/2022 11:48 AM EDTSexual OrientationStraight 02/11/2022 11:48 AM EDTdocumented as of this encounter Last Filed Vital Signs Vital SignReadingTime TakenCommentsBlood Uskeiuak188/56107/22/2024 10:35 AM EST Cmkzu323705/22/2025 10:35 AM SAQZfgztcuduma04.2 ??C (97.2 ??F)05/22/2025 10:35 AM ESTRespiratory Chwy119307/22/2024 10:35 AM ESTOxygen Aowiuexvuw79%05/22/2025 10:35 AM ESTInhaled Oxygen Concentration--Kwvcfs36.3 kg (203 lb 7.8 oz)05/22/2025 10:35 AM CDROawmwn157.6 cm (5' 5.98 )05/22/2025 10:35 AM ESTBody Mass Index32.86 05/22/2025 10:35 AM ESTdocumented in this encounter Functional Status * Are you deaf or do you have serious difficulty hearing?AnswerDate of BrsnloynfpJhpgkeBm25/03/2015 10:35 AM Santiago Palacios LPN * Are you blind or do you have serious difficulty seeing, even when wearing glasses?AnswerDate of DttdlpypafUrafhgWvj63/03/2015 10:35 AM Santiago Palacios LPN * Do you have serious difficulty walking or climbing stairs?AnswerDate of ZmrwlwsdrtPshmmiHm43/03/2015 10:35 AM Santiago Palacios LPN * Do you have difficulty dressing or bathing?AnswerDate of AssessmentAuthorNo 08/19/2014 10:35 AM Santiago Palacios LPN * Because of a physical, mental, or emotional condition, do you have difficulty doing errands alone such as visiting a doctor's office or shopping?AnswerDate of NctpfjjfojRatodvZv76/03/2015 10:35 AM Santiago Palacios LPN documented as of this encounter Mental Status * Because of a physical, mental, or emotional condition, do you have serious difficulty concentrating, remembering, or making decisions?AnswerEntry Date TpnklaCv47/03/2015 10:35 AM Santiago Palacios LPN documented in this encounter Progress Notes * Chary Hodge APRN.ELECTRON GUN INSPECTOR - 05/22/2025 11:00 AM EST NAME: Elvira Rajesh CLINIC NO.: [id number] DATE OF SERVICE: May 22, 2025 (Naveen) Some elements in this clinic note that are critical to medical decision making have been carefully reviewed and included from a prior clinic note dated: February 20, 2025 (Denice) Referring Provider: RADHA Additional Clinicians involved in Rajesh Felix's care: Dr. Jamar Jones, Dr. Catracho Haywood, Dr. Khan, [facility] Cardiology DIAGNOSIS: Metastatic prostate cancer CASE SUMMARY / ASSESSMENT: 80 year old man with. 1. Metastatic prostate cancer (HCC) - ICD9: 185, ICD10: C61 (primary diagnosis) The patient was diagnosed with early-stage high-grade prostate cancer in June 2014 (TRUS vberyu6907/02/2014). He underwent a radical prostatectomy on 11/05/2014. Pathology consistent with stage IIIC (pT2b, N0, M0), Monroe 5+4 equal 9. Postop the patient's PSA [...] 1. Malignant neoplasm of prostate (HCC) (C61) 2. 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 Encounter for antineoplastic chemotherapy (Z51.11) PSA is stable at 0.39, with only a slight increase from previous values. Patient is tolerating current regimen of Xtandi 160 mg daily well, with no reported side effects. Next Lupron injection is duein a couple of months with Dr. Haywood. - Continue Xtandi 160 mg daily. - Administer Xgeva today; next dose in 3 months. - Follow-up in 3 months with labs to be completed the week prior to visit. 4. Anemia, unspecified type (D64.9) Chronic, mild anemia with low serum iron and hemoglobin, but normal erythropoietin, folate, B12, and ferritin. No evidence of internal bleeding on prior upper and lower GI workup. No new symptoms of fatigue or dyspnea. - Discussed option of daily iron supplementation; patient is aware and will consider. 5. Other osteoporosis without current pathological fracture (M81.8) Patient is receiving Xgeva for bone health. - Continue Xgeva as scheduled. 6. Lactose intolerance (E73.9) Patient recently discovered lactose intolerance and is managing symptoms with lactase enzyme supplements. - Continue current management with lactase enzyme supplements as needed. CASE HISTORY: Reverse Chronological Order 11/05/2021 CT chest/abdomen/pelvis ([facility]) Several sclerotic lesions consistent with metastatic disease. No evidence of visceral organ involvement or lymphadenopathy. 11/05/2021 Bone scan ([facility]) Multifocal osseous metastasis including the left femur at the lesser trochanter, right pubis symphysis, multiple ribs bilaterally. 01/22/2018 Nuclear bone scan ([facility]) New focal increased activity left frontal bone, left T8 vertebral body. 01/22/2018 MRI pelvis ([facility]) 4.5 cm area of T2 signal in the prostate bed. 11/05/2014 Radical retropubic prostatectomy and bilateral pelvic lymphadenectomy ([facility]) Poorly differentiated prostatic adenocarcinoma of left prostate. Left base margin positive for neoplasm. Seminal vesicles with no diagnostic abnormality. 2 resected lymph nodes negative for neoplasm. 07/24/2014 CT abdomen/pelvis ([facility]) Diffuse prostatic enlargement with indentation of the bladder base. Incidental 2.5 x 1 cm exophytic hypodense lesion adjacent to the pancreatic body. HPI: Updated Visit, May 22, 2025: The patient is a 80-year-old male with prostate cancer and chronic iron deficiency anemia presenting for follow-up. The patient has a history of prostate cancer and chronic iron deficiency anemia. Heis currently being treated with Xtandi 160 mg daily and receives Lupron injections from Dr. Haywood.He is also receiving Xgeva injections every 3 months. He reports that his iron levels have been low for years. He does not take iron supplements, but does take a daily multivitamin containing iron. He reports that an upper and lower GI workup performed by his PCP a few years ago did not reveal any source of internal bleeding. Today, he denies new or extreme fatigue, shortness of breath, bleeding, nausea, or vomiting, and reports normal bowel function. He notes that he recently discovered he is lactose intolerant and carries lactase tablets. He also reports neck pain due to a disc issue. He has received both his flu and COVID vaccines. Updated Visit, February 20, 2025: Here with [...] negative by full review of organ systems. Constitutional: (-) fatigue Respiratory: (-) shortness of breath Gastrointestinal: (-) nausea, (-) vomiting Hematologic/Lymphatic: (-) bleeding Musculoskeletal: (+) neck pain ECOG PERFORMANCE STATUS: 0 PHYSICAL EXAMINATION: Vitals: BP 140/56 Pulse 51 Temp (Src) 97.2 (Temporal) Resp 16 Ht 5' 5.984 (1.68m) Wt 203lb 7.8 oz (92.3kg) SpO2 99% BMI 32.86 kg/(m^2). Body surface area is 2.07 meters squared. Exam limited to gross visualization [...] mg 24 hr tablet Take by mouth. Uniohiekohaaj-Yskjsjzz-Qpafdj (MULTIVITAMIN 50 PLUS) tab Take 1 tablet [...] daily. LABORATORY VALUES: WBC (k/uL) Date Value 05/15/2025 6.94 RBC (m/uL) Date Value 05/15/2025 3.64 (L) Hemoglobin (g/dL) Date Value 05/15/2025 11.7 (L) Hematocrit (%) Date Value 05/15/2025 34.8 (L) MCV (fL) Date Value 05/15/2025 95.6 MCH (pg) Date Value 05/15/2025 32.1 MCHC (g/dL) Date Value 05/15/2025 33.6 RDW-CV (%) Date Value 05/15/2025 12.6 Platelet Count (k/uL) Date Value 05/15/2025 206 MPV (fL) Date Value 05/15/2025 10.4 Glucose (mg/dL) Date Value 05/15/2025 118 (H) BUN (mg/dL) Date Value 05/15/2025 11 Creatinine (mg/dL) Date Value 05/15/2025 0.73 Sodium (mmol/L) Date Value 05/15/2025 142 Potassium (mmol/L) Date Value 05/15/2025 4.7 Chloride (mmol/L) Date Value 05/15/2025 103 CO2 (mmol/L) Date Value 05/15/2025 27 Protein, Total (g/dL) Date Value 05/15/2025 6.5 Albumin (g/dL) Date Value 05/15/2025 4.2 Calcium, Total (mg/dL) Date Value 05/15/2025 10.0 Alkaline Phosphatase (U/L) Date Value 05/15/2025 83 Bilirubin, Total (mg/dL) Date Value 05/15/2025 0.8 AST (U/L) Date Value 05/15/2025 19 ALT (U/L) Date Value 05/15/2025 20 DIAGNOSIS: (C61) Malignant neoplasm of prostate (HCC) (primary encounter diagnosis) (D64.9) Anemia, unspecified type (M81.8) Other osteoporosis without current pathological fracture (C79.51) Secondary malignant neoplasm of bone (HCC) (Z51.11) Encounter for antineoplastic chemotherapy (E73.9) Lactose intolerance PAST MEDICAL HISTORY Diagnosis Date CAD (coronary [...] which included preparing to see the patient, vqiu-fz-myzs patient care, completing clinical documentation, obtaining and/or reviewing separately obtained history, performing a medically appropriate examination, counseling and educating the pat ient/family/caregiver, ordering medications, tests, or procedures, independently interpreting results (not separately reported), communicating results to the patient/family/caregiver, and care coordination (not separately reported). Chary Hodge APRN, FISCAL MANAGER-C, [facility] Hematology and Oncology Services Provided at: [facility] [place], [place] CC: Jamar Jones DO Catracho Chastity documented in this encounter Plan of Treatment DateTypeDepartmentCare Team (Latest Contact Info)Moguraqmvbs82/22/2026 11:30 AM ESTOffice Visit [facility] [address] [place] [address] [place] [address] 3 month follow up with xgeva inj08/14/2025 11:00 AM ESTVisit (SP) Office Hematology/Oncology [address] [place] [address] Chary Hodge APRN.ELECTRON GUN INSPECTOR [address] [place] [address] [place] [address] 3 month follow up with xgeva inj08/14/2025 11:30 AM ESTInfusion Center Hematology/Oncology [address] [place] [address] [place] [address] 3 month follow up with xgeva injdocumented as of this encounter Visit Diagnoses Diagnosis Malignant neoplasm of prostate (HCC)- Primary Malignant neoplasm of prostate Anemia, unspecified type Other osteoporosis without current pathological fracture Secondary malignant neoplasm of bone (HCC) Secondary malignant neoplasm of bone and bone marrow Encounter for antineoplastic chemotherapy Lactose intolerance Intestinal disaccharidase deficiencies and disaccharide malabsorption documented in this encounter Care Teams Team MemberRelationshipSpecialtyStart DateEnd Date Jamar Jones DO PCP - GeneralInternal Medicine08/04/14 Galina Wall APRN.ELECTRON GUN INSPECTOR [address] [place] [address] [place] [address] Nurse PractitionerHematology/Oncology11/02/21 Clementine Aguilar, ANITHA [address] [place] [address] Specialty Care CoordinatorHematology/Oncology11/02/21 Saul Galdamez MD [address] [place] [address] [place] [address] PhysicianHematology/Oncology01/21/25documented as of this encounter
--- OUTSIDE RECORDS SUMMARY | 2025-05-22 11:30 | XMS_ITS | Encounter Summary ---
Author Organization [facility] Address [address] [place] [address] Care Team Providers Care Blender Machine Operator Name Role Phone Jamar Jones DO Primary Care Provider [phone] Galina Wall IRRIGATION FOREMAN.CONVERTER OPERATOR Unavailable [phone] Clementine Aguilar RN Unavailable [phone] Saul Galdamez MD Unavailable [phone] Source Comments In the event this information is protected by the Federal Confidentiality of Alcohol and Drug AbusePatient Records regulations: The Federal rules restrict any use of the information to criminally investigate or prosecute any alcohol or drug abuse patient.[facility] Reason for Visit * [place] Prior Authorization (Routine) - AuthorizedSpecialtyDiagnoses / ProceduresReferred By ContactReferred To Contact Diagnoses Malignant neoplasm of prostate (HCC) Procedures DENOSUMAB INJECTION Marco A Esqueda MD Hematology/Oncology [address] [place] [address] [place] [address] Phone: tel: fax: Referral IDStatusReasonStart DateExpiration DateVisits RequestedVisits [id number]/28/202212/[id number] Encounter Details DateTypeDepartmentCare Team (Latest Contact Info)Ffhzvdaoqgg63/06/2025 11:30 AM [facility] Hematology/Oncology [address] [place] [address] [place] [address] Malignant neoplasm of prostate (HCC) (Primary Dx) Social History Tobacco UseTypesPacks/DayYears UsedDateSmoking Tobacco: NeverPassive Smoke Exposure: NeverSmokeless Tobacco: NeverAlcohol UseStandard Drinks/WeekComments Yes0 (1 standard drink = 0.6 oz pure alcohol)1 day/wkPHQ-2AnswerDate Recorded PHQ-2 zgxvf77807/20/2024rea Deprivation IndexAnswerDate RecordedNational Score (1-100), lower number is lower xijf7768State Score (1-10), lower number is lower gimb8613Data from: https://www.neighborhoodatlas.[facility].edu/. Last address used for cbgumcusbqi[address]/02/[address]Sex and Gender InformationValueDate Recorded Sex Assigned at OxxdnYwgf26/29/2022 11:48 AM EDTLegal VlzFzyd5108/04/2014 8:03 AM ESTGender UdnmwdccPfqf14/29/2022 11:48 AM EDTSexual OrientationStraight 02/11/2022 11:48 AM EDTdocumented as of this encounter Functional Status * Are you deaf or do you have serious difficulty hearing?AnswerDate of YpxcsrvfhiBbseogAt92/03/2015 10:35 AM Santiago Palacios LPN * Are you blind or do you have serious difficulty seeing, even when wearing glasses?AnswerDate of ZkyxpisqodYurcpkKej29/03/2015 10:35 AM Santiago Palacios LPN * Do you have serious difficulty walking or climbing stairs?AnswerDate of XxhcwwiowuKnsscoZr05/03/2015 10:35 AM Santiago Palacios LPN * Do you have difficulty dressing or bathing?AnswerDate of AssessmentAuthorNo 08/19/2014 10:35 AM Santiago Palacios LPN * Because of a physical, mental, or emotional condition, do you have difficulty doing errands alone such as visiting a doctor's office or shopping?AnswerDate of LuzedddboyGpftbtXf28/03/2015 10:35 AM Santiago Palacios LPN documented as of this encounter Mental Status * Because of a physical, mental, or emotional condition, do you have serious difficulty concentrating, remembering, or making decisions?AnswerEntry Date WacfjsZu85/03/2015 10:35 AM Santiago Palacios LPN documented in this encounter Plan of Treatment DateTypeDepartmentCare Team (Latest Contact Info)Uqvjemikmpw17/22/2026 11:30 AM ESTOffice Visit [facility] [address] [place] [address] [place] [address] 3 month follow up with xgeva inj08/14/2025 11:00 AM ESTVisit (SP) Office Hematology/Oncology [address] [place] [address] [place] [address] Chary Hodge APRN.CONVERTER OPERATOR [address] [place] [address] 3 month follow up with xgeva inj08/14/2025 11:30 AM [facility] Hematology/Oncology [address] [place] [address] [place] [address] 3 month follow up with xgeva injdocumented as of this encounter Visit Diagnoses Diagnosis Malignant neoplasm of prostate (HCC)- Primary Malignant neoplasm of prostate documented in this encounter Administered Medications Medication OrderMAR ActionAction DateDoseRateSite denosumab 120 mg injection (XGEVA) 120 mg, SUBCUTANEOUS, ONCE, 1 dose, On Mon05/22/25 at 1130, REFRIGERATE Indications:Malignant neoplasm of prostate (HCC)Given05/22/2025 11:31 AM MTE302 mgArm, Leftdocumented in this encounter Care Teams Team MemberRelationshipSpecialtyStart DateEnd Date Jamar Jones DO PCP - GeneralInternal Medicine08/04/14 Galina Wall APRN.CONVERTER OPERATOR [address] [place] [address] Nurse PractitionerHematology/Oncology11/02/21 Clementine Aguilar, ANITHA [address] [place] [address] Specialty Care CoordinatorHematology/Oncology11/02/21 Saul Galdamez MD [address] [place] [address] PhysicianHematology/Oncology01/21/25documented as of this encounter
--- OUTSIDE RECORDS SUMMARY | 2025-05-29 08:07 | XMS_ITS | Clinical Summary ---
Author Organization [facility] tem Address [id number] [address] [place] [address] Care Team Providers Care Plastic Joint Maker Name Role Phone Unavailable Primary Care Provider Unavailabl e Allergies Active AllergyReactionsCriticalityNoted DateCommentsPenicillinsOther (See Comments)Njchqs4308/06/2014 Other reaction(s): Unknown Medications MedicationSigDispense QuantityRefillsLast FilledStart DateEnd DateStatus lisinopril-hydroCHLOROthiazide (PRINZIDE,ZESTORETIC) 20-12.5 mg per tablet Take 1 tablet by mouth daily.Active atorvastatin (LIPITOR) 20 mg tablet Take 20 mg by mouth daily.Active metoprolol tartrate (LOPRESSOR) 25 mg tablet Take 25 mg by mouth 2 (two) times a day.Active aspirin 81 mg Take 81 mg by mouth daily.Active atorvastatin (LIPITOR) 40 mg tablet Take 0.5 tablets by mouth daily.Active Family History Medical HistoryRelationNameCommentsHeart attackFatherCancerMotherRelationName StatusCommentsFatherDeceasedMotherDeceased Social History Tobacco UseTypesPacks/DayYears UsedDateSmoking Tobacco: NeverSmokeless Tobacco: NeverAlcohol UseStandard Drinks/WeekCommentsYes3 (1 standard drink = 0.6 oz pure alcohol)ChildcareAnswerDate UmikdpmjKcwrcxlynGvwbouo06/12/2019EmploymentAnswer Date KbsikotiKkkusmycvhHatvbyk98/12/2019Purpose - LifeAnswerDate RecordedPurpose and direction in yrdgNqoogtq92/11/2021Sex and Gender InformationValueDate RecordedSex Assigned at BirthNot on fileLegal HvnCidn2202/19/2015 11:32 AM EDT Gender IdentityNot on fileSexual OrientationNot on file Last Filed Vital Signs Vital SignReadingTime TakenCommentsBlood Ksikbsdf391/6403 9:04 AM EDT Bxjve3639 9:04 AM EDTTemperature--Respiratory Rate--Oxygen Nabzrzuccq64% 09/26/2019 8:59 AM EDTInhaled Oxygen Concentration--Pklvpn084.4 kg (223 lb 9.6 oz)09/26/2019 8:59 AM EHBIlvurc603.9 cm (5' 6.5 )09/26/2019 8:59 AM EDTBody Mass Index35.55009/26/2019 8:59 AM EDT Plan of Treatment Health MaintenanceDue DateLast DoneCommentsDepression Livfjrikd70/31/1958Tobacco Wuqnagivw09/31/1958Zoster (Shingles) Vaccine (1 of 2)02/14/1996Fall Risk Unfstwibn75/31/2011DTaP,Tdap and Td Vaccines (1 - Tdap)RSV ( or age 60+ yrs) (1 - 1-dose 75+ series)2021Influenza Vaccine 03/17/2025 Medical Devices Not on file Insurance
--- OUTSIDE RECORDS SUMMARY | 2025-05-29 08:08 | XMS_ITS | Patient Health Record ---
Author Organization [facility] Address [address] [place] [address] Care Team Providers Care Review Engineer Name Role Phone LISSA FALL DO Primary Care Provider Unavaila Cristhian Santos Unavailable [phone] PHILIP TALAVERA CNP Unavailable Unavailable Allergies Allergen (clinical drug ingredient) Drug/Non Drug Allergy documented on EMR Reaction Allergy Type Onset Date Status PENICILLIN (uncoded)UnknownAllergyActive Reason For Referral No Information Medications Medication SIG (Take, Route, Frequency, Duration) Notes Start Date End Date Status multivitamin ActivemetFORMINActiveXtandiActiveaspirinActiveCalcium 600+DActivelisinopril ActiveatorvastatinActivemetoprololActiveglimepirideActive Social History Tobacco Use: Social History Observation Description Date Details (start date - stop date) Never Smoker NA - NA AUDIT-C (Standard) Question Answer Notes Did you have a drink containing alcohol in the p ast year? Yes How often did you have six or more drinks on one occasion in the past year?Never (0 point)How many drinks did you have on a typical day when you were drinking in the past year?1 or 2 drinks (0 point)How often did you have a drink containing alcohol in the past year?Monthly or less (1 point)Agzrrm1BnytgigmhsiuvjBtlihouu Tobacco Control (Standard) Question Answer Notes Tobacco use: Nonsmoker Problems Problem Type SNOMED Code ICD Code Onset Dates Problem Status W/U Status Risk Notes Problem Carpal tunnel syndrome (78435062) Right c arpal tunnel syndrome (G56.01) ActiveconfirmedProblemCarpal tunnel syndrome (24856134)Left carpal tunnel syndrome (G56.02)ActiveconfirmedProblemParesthesia of both hands (740162610) Paresthesia of both hands (R20.2)ActiveconfirmedProblemBilateral carpal tunnel syndrome (96097168820105448)Bilateral carpal tunnel syndrome (G56.03)Active confirmedProblemArthritis of right hand (387600321005715)Arthritis of right hand (M19.041)Activeconfirmed Plan Of Treatment Pending Test Test Name Order Date EMG/NCS Upper Extremities, Bilateral CBC with diff, BMP, EKG 03/11/2024 Hemoglobin A1C 03/11/2024 Chem 8, Venous 03/11/2024 SURGERY SCHEDULING 03/11/2024 H A1C 01/29/2024 SCC- HAND 3 VIEW RIGHT [id number] 01/29/2024 Insurance Providers Payer Name Payer Address Payer Phone Subscriber Number Group Number Insured Name Patient Relationship to Insured Coverage Start Date Coverage End [place] [address] [address] [id number] Baljinder ONEIL - patient is the insuredMedicare MMOH AdvantagePO [address] [place], [place] [id number], THOMASSelf - patient is the insured Medical (General) History Medical History History 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
--- OUTSIDE RECORDS SUMMARY | 2025-05-29 08:08 | XMS_ITS | Clinical Summary ---
Author Organization [facility] Healthcare Address [address] [place] [address] Care Team Providers Care Green Marketing Analyst Name Role Phone Jamar Jones DO Primary Care Provider [phone] Allergies Active AllergyReactionsCriticalityNoted DateCommentsPenicillin 06/25/2001 Other Reaction(s): HIVES, Unknown Kkgnwiaouty61/20/2002 Other Reaction(s): Unknown Medications MedicationSigDispense QuantityRefillsLast FilledStart DateEnd DateStatus aspirin 81 MG EC tablet Take 81 mg by mouth in the morning.Active atorvastatin (Lipitor) 40 MG tablet Take 40 mg by mouth in the morning.Active lisinopril-hydroCHLOROthiazide 20-12.5 MG tablet Take 1 tablet by mouth in the morning.Active metoprolol tartrate (Lopressor) 25 MG tablet Take 25 mg by mouth every 12 (twelve) hoursActive glimepiride (Amaryl) 1 MG tablet Take 0.5 mg by mouth in the morning. Take before meals.Active metFORMIN, OSM, (Fortamet) 500 MG 24 hr tablet Take 500 mg by mouth in the evening. Take with meals Do not crush, chew, or split.Active ipratropium (Atrovent) 0.06 % nasal spray Indications:Vasomotor rhinitisAdminister 2 sprays into each nostril in the morning and 2 sprays in the evening and 2 sprays before bedtime. 45 mL ctive fluorouracil (Efudex) 5 % cream Indications:Actinic keratosisApply to directed areas on the face, ears and back of hands twice a day x 14 days. Dispense 30 day supply but only use for 14 days. 40 g 08/28/2023ctive Active Problems ProblemNoted DateDiagnosed DateVasomotor asdxagce76/20/6312Dqbjqikota24/16/2023 Coronary eitufwzmoqvfaakt03/16/2023 Overview (06/01/2023): Jun 01, 2016 Entered By: HARVINDER TORIBIO Comment: cabg X 3 (07/2014) Diabetes awgpdwff83/16/2023Impaired jsnaaol8606/01/20232885Tegyjac00/16/2023Essential hzmblqzobwgs50/16/2023Sensorineural hearing loss, xasoxubgh92/16/2023Sleep apnea 06/01/2023Type 2 diabetes mellitus without qdnphdlnpezzy52/16/2023Nonrheumatic aortic (valve) /16/2023Malignant neoplasm of rqvxvfku67/21/2015 Overview (06/01/2023): Jun 01, 2016 Entered By: HARVINDER TORIBIO Comment: PROSTATECTOMY 10/2014 Resolved Problems ProblemNoted DateDiagnosed DateResolved DatePrimary trimzxcbfmow07/16/2023 06/01/2023 Immunizations ImmunizationAdministration DatesNext DuePneumococcal Polysaccharide PPSV23 06/12/2017,06/01/2017,04/29/2015,06/07/2010Zoster, Jxbcwpxqlek07/04/2019, 06/11/2018 Family History Medical HistoryRelationNameCommentsHeart failureFatherCancerMotherRelationName StatusCommentsFatherDeceasedMotherDeceased Social History Tobacco UseTypesPacks/DayYears UsedDateSmoking Tobacco: NeverSmokeless Tobacco: Never Tobacco Cessation:Counseling Given: Not Answered Alcohol UseStandard Drinks/WeekCommentsYes8 (1 standard drink = 0.6 oz pure alcohol)caffeine intake: more than 4 cups per dayAUDIT-CAnswerDate RecordedQ1: How often do you have a drink containing alcohol?2-3 times a week06/04/2023Q2: How many drinks containing alcohol do you have on a typical day when you are drinking?1 or Q3: How often do you have six or more drinks on one occasion?Never06/04/2023Sex and Gender InformationValueDate RecordedSex Assigned at BirthNot on fileLegal BgrEuej4209/28/2022 8:21 PM EDTGender IdentityNot on file Sexual OrientationNot on file Last Filed Vital Signs Vital SignReadingTime TakenCommentsBlood Kejqxphd004/7803/ 8:23 AM EDT Pulse--Temperature--Respiratory Rate--Oxygen Saturation--Inhaled Oxygen Concentration--Bbinph18.3 kg (208 lb)06/05/2023 11:24 AM MXOVaisod145.9 cm (5' 6.5 )06/05/2023 11:24 AM ESTBody Mass Index33.0706/05/2023 11:24 AM EST Plan of Treatment DateTypeDepartmentCare Team (Latest Contact Info)Vmblrplhepk97/13/2026 10:30 AM EDTOffice Visit [facility] [address] [place] [address] Deisy Boo APRN-SOLO TRUCK DRIVER [address] [place], [place] [id number] Health MaintenanceDue DateLast DoneCommentsCOVID-19 Vaccine ( season) 510/12/2021, 01/21/2022, 05/17/2021, Additional history existsInfluenza Vaccine (#1)509/04/2024, 05/01/2023, 04/28/2022, Additional history existsPneumococcal Vaccine: 65+ PtbqyQnagbfpgs90/27/2017, 06/01/2017, 05/11/2015, Additional history exists Insurance MemberSubscriberPlan / Payer (Effective 2012-Present)Name:Rajesh Felix Member ID:[id number] Relation to Subscriber:SelfName:Rajesh Felix Subscriber ID:[id number] Payer ID:STATE Group ID:Not on file Type:Medicare Address: [address] [id number] Care Teams Team MemberRelationshipSpecialtyStart DateEnd Date Jamar Jones, [address] [facility] [place] [address] PCP - GeneralInternal Olkfkbdk32/15/23
--- OUTSIDE RECORDS SUMMARY | 2025-05-29 08:08 | XMS_ITS | Clinical Summary ---
Author Organization [facility] Address [address] [place] [address] Care Team Providers Care Patient Support Representative Name Role Phone Jamar Jones DO Primary Care Provider [phone] Allergies Active AllergyReactionsCriticalityNoted DateCommentsPenicillinsHives,Other, OlltvqzXipyir80/10/2001 Other reaction(s): Unknown Other Reaction(s): HIVES, Unknown Medications MedicationSigDispense QuantityRefillsLast FilledStart DateEnd DateStatus lisinopriL-hydrochlorothiazide 20-12.5 mg tablet Take 1 tablet by mouth in the morning.02/04/2019Active atorvastatin (Lipitor) 40 mg tablet Take 1 tablet by mouth in the evening.Active metoprolol tartrate (Lopressor) 25 mg tablet Take 1 tablet by mouth in the morning and at bedtime.Active glimepiride (Amaryl) 1 mg tablet TAKE 1/2 TABLET BY MOUTH DAILY 30 MINUTES PRIOR TO BREAKFASTActive metFORMIN (Glucophage) 500 mg tablet Take 500 mg by mouth with breakfast and with evening meal.Active enzalutamide 80 mg tablet Take 160 mg by mouth in the morning.05/13/2022ctive aspirin 81 mg chewable tablet Chew 1 tablet every day by oral route.Active Active Problems ProblemNoted DateDiagnosed DateArthritis of right hand03/20/2025ilateral carpal tunnel batxnsrv00/04/2025arpal tunnel mefsadoa05/04/2025Paresthesia of both hands03/20/2025ervical azwpwtqdxxc46/11/2024Mass of skin of left shoulder 03/27/2024Neck pain03/27/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 She may hold aspirin 5-7 days prior and resume post op. Please monitor hemodynamicscarefully and prevent any major fluid shifts. History of cledkcxdlczd94History of kidney vqtprf6206/22/2023 06/22/2023History of prostate yjbpvj29Hyperlipidemia06/22/2023 06/22/2023 Assessment & Plan (03/29/2024 3:07 PM EDT): Lipid abnormalities are stable continue Lipitor 40 mg daily lipid profile is well-controlled and liver function is normal Microscopic osgughblq41NocturiaRising PSA following treatment for malignant neoplasm of eyipazqs78 Vasomotor aflfiehu93nisocoriaoronary splagwcyqcuslbhp74 Overview (06/22/2023): Jun 01, 2016 Entered By: [...] as tolerated and continue all medications. Essential jzgcaskjccht00 Assessment & Plan (03/29/2024 3:07 PM EDT): Hypertension is well-controlled at 127/51 Continue lisinopril/hydrochlorothiazide and metoprolol. Renal function normal Impaired kfbhjza08Nonrheumatic aortic (valve) stenosis Assessment & Plan (03/29/2024 3:06 PM EDT): Reviewed echocardiogram from July 08 moderate aortic stenosis noted and reviewed echo with patient and his No concerning symptoms at this time patient would like symptoms including palpitations, lightheadeddizziness, syncope, chest pain, worsening shortness of breath and he voiced understanding Monitor with echocardiogram Wnyucks77Sensorineural hearing loss, yrqijutnh40/16/2023 06/22/2023Sleep apneaType 2 diabetes mellitus without hgrwaszrkqlhm51iabetes evkrijpn01arcinoma of pnxkgrdu63 Overview (06/22/2023): S/p Radical 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 2018 Jun 01, 2016 Entered By: HARVINDER TORIBIO Comment: PROSTATECTOMY 10/2014Jun 01, 2016 Entered By: HARVINDER TORIBIO Comment: PROSTATECTOMY 10/2014 Encounters DateTypeDepartmentCare SkhrDqpfbzxbvou50/29/2025Orders Only [facility] at [address] [address] Josie Soni MA Mitral valve stenosis and aortic valve stenosis (Primary Dx); Coronary artery disease, unspecified vessel or lesion type, unspecified whether angina present, unspecified whether [place] or transplanted heart; ALEXANDER (dyspnea on exertion)04/06/2025Results Follow-Up [facility] [address] [place] [address] Katelyn Quiroz CNP Lexiscan Stress Myocardial Perfusion Kjqsipu8304/04/2025Orders Only [facility] [address] [place] [address] ProviderCarmel MD 03/20/2025 9:20 AM EDTOffice Visit [facility] [address] [place] [address] Katelyn Quiroz CNP Mixed hyperlipidemia (Primary Dx); 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; Coronary artery disease involving [place] coronary artery of [place] heart without angina pectoris; Adult general medical exam; Essential hypertension; Other fatigue; Nonrheumatic aortic (valve) stenosis; Hx of CABGfrom Last 3 Months Family History Medical HistoryRelationNameCommentsCoronary artery diseaseFatherRelationName StatusCommentsFather Social History Tobacco UseTypesPacks/DayYears UsedDateSmoking Tobacco: NeverSmokeless Tobacco: Never Tobacco Cessation:Counseling Given: Not Answered Alcohol UseStandard Drinks/WeekCommentsNot Currently0 (1 standard drink = 0.6 oz pure alcohol)NC Safety & EnvironmentAnswerDate RecordedFear of Current or Ex-PartnerNot on file09/07/2023Emotionally AbusedNot on file09/07/2023hysically AbusedNot on file09/07/2023Sexually AbusedNot on file09/07/2023hysically or Sexually AbusedNot on file09/07/2023Sex and Gender InformationValueDate Recorded Sex Assigned at SnliwVpaz27/03/2025 11:14 AM EDTLegal GaqSoqs6701/12/2022 11:25 PM EDTGender JmqngdlgRawj84/03/2025 11:14 AM EDTSexual OrientationHeterosexual or Srjsgkks74/03/2025 11:14 AM EDT Last Filed Vital Signs Vital SignReadingTime TakenCommentsBlood Ayikddyg702/5809 9:28 AM EDT Igubf3572 9:28 AM EDTTemperature--Respiratory Rate--Oxygen Llxdajtsuu60% 03/20/2025 9:28 AM EDTInhaled Oxygen Concentration--Rcmeoc00.2 kg (201 lb) 03/20/2025 9:28 AM BZQHuztff018.1 cm (5' 5 )03/20/2025 9:28 AM EDTBody Mass Index33.45003/20/2025 9:28 AM EDT Plan of Treatment Health MaintenanceDue DateLast DoneCommentsDiabetes: Hemoglobin A1C1946 Medicare Annual Wellness (AWV)1946Diabetes: Retinopathy Screening 02/14/1956Depression Ffkbyrvrs52/31/1958Diabetes: Urine Protein Screening 1965Fall Risk Scwexgbgr76/31/2011COVID-19 Vaccine ( season) , 04/21/2022, 01/21/2022, Additional history existsInfluenza Vaccine (#1)509/04/2024, 05/01/2023, 04/28/2022, Additional history existsAdult Uwkyebt55/04/2024, 06/19/2013, 04/24/2013, Additional history existsPneumococcal Vaccine: 50+ AmaxqOxunkrmmx67/27/2017, 06/01/2017, 05/11/2015, Additional history existsZoster VqkjldhjFxamswiey37/04/2019, 06/11/2018, 06/27/2012HIB VaccinesAged OutNo longer eligible based on patient's age to complete this topicHPV VaccinesAged OutNo longer eligible based on patient's age to complete this topicIPV VaccinesAged OutNo longer eligible based on patient's age to complete this topicMeningococcal B VaccineAged OutNo longer eligible based on patient's age to complete this topicMeningococcal VaccineAged OutNo longer eligible based on patient's age to complete this topicRotavirus VaccinesAged OutNo longer eligible based on patient's age to complete this topic Procedures Procedure NamePriorityDate/TimeAssociated DiagnosisCommentsLEXISCAN STRESS MYOCARDIAL PERFUSION IKAZATIXuliptp68/18/2025 4:35 PM EDT from Last 3 Months Results * Lexiscan Stress Myocardial Perfusion Imaging (04/03/2025 4:35 PM EDT) Anatomical RegionLateralityModalityOther Narrative Authorizing ProviderResult TypeResult StatusHistorical Provider MDCV STRESS PROCEDURESFinal Result from Last 3 Months Insurance Care Teams Team MemberRelationshipSpecialtyStart DateEnd Date Jamar Jones DO [address] [place] [address] PCP - Gsyavov93/12/22
--- OUTSIDE RECORDS SUMMARY | 2025-05-29 08:08 | XMS_ITS ---
Author Organization [facility] Address [address] [place], [place] [address] Care Team Providers Care Dross Skimmer Name Role Phone Jamar Jones DO Primary Care Provider [phone] Galina Wall INSTRUMENT CHECKER.INFORMATION SYSTEMS CONSULTANT Unavailable [phone] Clementine Aguilar RN Unavailable [phone] Saul Galdamez MD Unavailable [phone] Active Problems ProblemNoted DateDiagnosed DateMalignant neoplasm of bsyyiawk24/21/2015 Current Treatment and Therapy Plans AMB BONE MODIFYING AGENT: $$$$ - Q4 WEEKS - IF CrCl IS LESS THAN 30 ML/MIN* Plan Start Date:11/18/2021 Plan Provider:Marco A Esqueda MD Linked Problems Malignant neoplasm of prosta te (HCC) Treatment MedicationsCurrent Day (Day 1, Cycle 16 - Planned for 08/20/2025)Next Day (Day 1, Cycle 17 - Planned for 11/18/2025)* * denosumab (XGEVA) * * denosumab 120 mg injection (XGEVA) * * denosumab 120 mg injection (XGEVA) Past Treatment and Therapy Plans No past plan information found.
--- OUTSIDE RECORDS SUMMARY | 2025-05-29 08:08 | XMS_ITS | Encounter Summary ---
Author Organization [facility] Address [address] [place], [place] [address] Care Team Providers Care Chemist Inorganic Name Role Phone Jamar Jones DO Primary Care Provider [phone] Galina Wall APRN.DIRECTOR DATA Unavailable [phone] Clementine Aguilar RN Unavailable [phone] Saul Galdamez MD Unavailable [phone] Source Comments In the event this information is protected by the Federal Confidentiality of Alcohol and Drug AbusePatient Records regulations: The Federal rules restrict any use of the information to criminally investigate or prosecute any alcohol or drug abuse patient.[facility] Encounter Details DateTypeDepartmentCare Team (Latest Contact Info)Amivwqbramy99/06/2025Travel Social History Tobacco UseTypesPacks/DayYears UsedDateSmoking Tobacco: NeverPassive Smoke Exposure: NeverSmokeless Tobacco: NeverAlcohol UseStandard Drinks/WeekComments Yes0 (1 standard drink = 0.6 oz pure alcohol)1 day/wkPHQ-2AnswerDate Recorded PHQ-2 gnwca607/04/2025Area Deprivation IndexAnswerDate RecordedNational Score (1-100), lower number is lower kujq029602/02/2023State Score (1-10), lower number is lower dnmm0753Data from: https://www.neighborhoodatlas.medicine.[facility].edu/. Last address used for zqknfxagzis[address]02/02/2023Sex and Gender InformationValueDate Recorded Sex Assigned at OmbjjTgpi93/29/2022 11:48 AM EDTLegal EejMmbs2708/04/2014 8:03 AM ESTGender WdkopvvtVeke97/29/2022 11:48 AM EDTSexual OrientationStraight 02/11/2022 11:48 AM EDTdocumented as of this encounter Functional Status * Are you deaf or do you have serious difficulty hearing?AnswerDate of OxdwlmvbsxIczkrlQy17/03/2015 10:35 AM Santiago Palacios LPN * Are you blind or do you have serious difficulty seeing, even when wearing glasses?AnswerDate of JgvssnefexXniyafNtc54/03/2015 10:35 AM Santiago Palacios LPN * Do you have serious difficulty walking or climbing stairs?AnswerDate of DzrchwdlcmYyptinIb93/03/2015 10:35 AM Santiago Palacios LPN * Do you have difficulty dressing or bathing?AnswerDate of AssessmentAuthorNo 08/19/2014 10:35 AM Santiago Palacios LPN * Because of a physical, mental, or emotional condition, do you have difficulty doing errands alone such as visiting a doctor's office or shopping?AnswerDate of TbctizkbalCluwouGp68/03/2015 10:35 AM Santiago Palacios LPN documented as of this encounter Mental Status * Because of a physical, mental, or emotional condition, do you have serious difficulty concentrating, remembering, or making decisions?AnswerEntry Date GeoikzKf49/03/2015 10:35 AM Santiago Palacios LPN documented in this encounter Plan of Treatment DateTypeDepartmentCare Team (Latest Contact Info)Dfjycrhkson61/22/2026 11:30 AM ESTOffice Visit [facility] [address] [place] [address] [place] [address] 3 month follow up with xgeva inj08/14/2025 11:00 AM ESTVisit (SP) Office Hematology/Oncology [address] [place] [address] Chary Hodge, VERMIN EXTERMINATOR.DIRECTOR DATA [address] [place] [address] 3 month follow up with xgeva inj08/14/2025 11:30 [facility] [place] [place] [address] 3 month follow up with xgeva injdocumented as of this encounter Visit Diagnoses Not on filedocumented in this encounter Care Teams Team MemberRelationshipSpecialtyStart DateEnd Date Jamar Jones DO PCP - GeneralInternal Medicine08/04/14 Galina Wall, ROCHELLE.DIRECTOR DATA [address] [place] [address] [place] [address] Nurse PractitionerHematology/Oncology11/02/21 Clementine Aguilar, ANITHA [facility] [address] [place] [address] Specialty Care CoordinatorHematology/Oncology11/02/21 Saul Galdamez MD [address] [place] [address] [place] [address] PhysicianHematology/Oncology01/21/25documented as of this encounter
--- OUTSIDE RECORDS SUMMARY | 2025-05-29 08:08 | XMS_ITS | Encounter Summary ---
Author Organization [facility] Address [address] [place] [address] Care Team Providers Care Aluminum Pool Installer Name Role Phone Jamar Jones DO Primary Care Provider [phone] Christo Howard APRN.JAVA WEB ARCHITECT Unavailable [phone] Clementine Aguilar RN Unavailable [phone] Saul Galdamez MD Unavailable [phone] Source Comments In the event this information is protected by the Federal Confidentiality of Alcohol and Drug AbusePatient Records regulations: The Federal rules restrict any use of the information to criminally investigate or prosecute any alcohol or drug abuse patient.[facility] Reason for Visit * ReasonOnset DateCommentsRefill Ydbzqps4805/26/2025Xtandi Encounter Details DateTypeDepartmentCare Team (Latest Contact Info)Jzugfxubovf47/10/2025Refill [facility] [address] [place] [address] Saul Galdamez MD [address] [place] [address] [place] [address] Refill Request (Xtandi) Social History Tobacco UseTypesPacks/DayYears UsedDateSmoking Tobacco: NeverPassive Smoke Exposure: NeverSmokeless Tobacco: NeverAlcohol UseStandard Drinks/WeekComments Yes0 (1 standard drink = 0.6 oz pure alcohol)1 day/wkPHQ-2AnswerDate Recorded PHQ-2 /04/2025Area Deprivation IndexAnswerDate RecordedNational Score (1-100), lower number is lower qlri1311State Score (1-10), lower number is lower hibr3773Data from: https://www.neighborhoodatlas.[facility].edu/. Last address used for jpbdvsiybob[address]/02/2023Sex and Gender InformationValueDate Recorded Sex Assigned at RjqztObic43/29/2022 11:48 AM EDTLegal AwiPdjm1508/04/2014 8:03 AM ESTGender KpntecafCecs59/29/2022 11:48 AM EDTSexual OrientationStraight 02/11/2022 11:48 AM EDTdocumented as of this encounter Functional Status * Are you deaf or do you have serious difficulty hearing?AnswerDate of FqdgvuhvyjNnoqqrFq55/03/2015 10:35 AM Santiago Palacios LPN * Are you blind or do you have serious difficulty seeing, even when wearing glasses?AnswerDate of ZqepgssfzmRhahzxDvk09/03/2015 10:35 AM Santiago Palacios LPN * Do you have serious difficulty walking or climbing stairs?AnswerDate of ZxpsjeetsgYbbwsfKh17/03/2015 10:35 AM Santiago Palacios LPN * Do you have difficulty dressing or bathing?AnswerDate of AssessmentAuthorNo 08/19/2014 10:35 AM Santiago Palacios LPN * Because of a physical, mental, or emotional condition, do you have difficulty doing errands alone such as visiting a doctor's office or shopping?AnswerDate of EtuptuuvqfNgugoaUe40/03/2015 10:35 AM Santiago Palacios LPN documented as of this encounter Mental Status * Because of a physical, mental, or emotional condition, do you have serious difficulty concentrating, remembering, or making decisions?AnswerEntry Date NionngLw96/03/2015 10:35 AM Santiago Palacios LPN documented in this encounter Miscellaneous Notes * Telephone Encounter - Clementine Aguilar RN - 05/26/2025 3:10 PM EST Pt notified of script. Clementine Aguilar RN * Telephone Encounter - Christo Howard APRN.CNP - 05/26/2025 2:33 PM EST The following approved medication requests have been transmitted electronically. Requested Prescriptions Signed Prescriptions Disp Refills enzalutamide (XTANDI) 40 mg tablet 120 tablet 11 Sig: Take 4 tablets (160 mg) by mouth once daily. Authorizing Provider: CHRISTO HOWARD APRN.JAVA WEB ARCHITECT * Telephone Encounter - Clementine Aguilar RN - 05/26/2025 2:27 PM EST Patient phones requesting refills as follows: Pt has only 3 days of medication remaining. Please review and approve. Thanks! Requested Prescriptions Pending Prescriptions Disp Refills enzalutamide (XTANDI) 40 mg tablet 120 tablet 11 Sig: Take 4 tablets (160 mg) by mouth once daily. Please review and advise. Clementine Aguilar RN documented in this encounter Plan of Treatment DateTypeDepartmentCare Team (Latest Contact Info)Hqapdyginpn66/22/2026 11:30 AM ESTOffice Visit [facility] [address] [place] [address] [place] [address] 3 month follow up with xgeva inj08/14/2025 11:00 AM ESTVisit (SP) Office Hematology/Oncology [address] [place] [address] [place] [address] Chary Hodge APRN.JAVA WEB ARCHITECT [address] [facility] [facility] [place] [address] 3 month follow up with xgeva inj08/14/2025 11:30 AM [facility] Hematology/Oncology [address] [place] [address] [place] [address] 3 month follow up with xgeva injdocumented as of this encounter Visit Diagnoses Not on filedocumented in this encounter Care Teams Team MemberRelationshipSpecialtyStart DateEnd Date Jamar Jones DO PCP - GeneralInternal Medicine08/04/14 Christo Howard, ELECTRONIC SCALE SUBASSEMBLER.JAVA WEB ARCHITECT [address] [place] [address] [place] [address] Nurse PractitionerHematology/Oncology11/02/21 Clementine Aguilar, ANITHA [address] [place] [address] [place] [address] Specialty Care CoordinatorHematology/Oncology11/02/21 Saul Galdamez MD [address] [place] [address] [place] [address] PhysicianHematology/Oncology01/21/25documented as of this encounter
--- OUTSIDE RECORDS SUMMARY | 2025-05-29 08:09 | XMS_ITS | Clinical Summary ---
Author Organization [facility] Address [address] [place], [place] [address] Care Team Providers Care Marker Machine Attendant Name Role Phone Jamar Jones DO Primary Care Provider [phone] Galina Wall APRN.LAG SCREWER Unavailable Clementine Aguilar RN Unavailable [phone] Saul Galdamez MD Unavailable [phone] Allergies Active AllergyReactionsCriticalityNoted LlazXoyebkeeTwuszcfpozdZwtduez63/21/2015 TvgcbsypakrBikxdyw66/20/2002 Medications MedicationSigDispense QuantityRefillsLast FilledStart DateEnd DateStatus lisinopril-hydrochlorothiazide (PRINZIDE,ZESTORETIC) 20-12.5 mg per tablet Take 1 tablet by mouth once daily.Active aspirin, enteric coated (ASPIRIN, ENTERIC COATED) 81 mg EC tablet Take 81 mg by mouth once daily.Active atorvastatin (LIPITOR) 40 mg tablet Take 40 mg by mouth once daily. Active GLIMEPIRIDE ORAL Take 0.5 mg by mouth once daily. 10/15/2021ctive metFORMIN (GLUCOPHAGE) 1,000 mg tablet Take 1,000 mg by mouth once daily. 08/17/2021ctive Kstoigngmuqig-Fatzdhmt-Tontot (MULTIVITAMIN 50 PLUS) tab Take 1 tablet by mouth once daily.Active metoprolol succinate ER (TOPROL XL) 25 mg 24 hr tablet Take by mouth.02/04/2019Active Calcium Citrate-Vitamin D3 200 mg-6.25 mcg (250 unit) tab Take 2 tablets by mouth once daily.04/28/2022ctive enzalutamide (XTANDI) 40 mg tablet Take 4 tablets (160 mg) by mouth once daily. 120 tablet 5Active enzalutamide (XTANDI) 40 mg tablet Take 4 tablets (160 mg) by mouth once daily. 120 tablet Discontinued Active Problems ProblemNoted DateDiagnosed DateMalignant neoplasm of wciukymm27/21/2015 Encounters DateTypeDepartmentCare HltbTvkkdkhtkjg45/10/2025Refill [facility] [address] [place] [id number] Saul Galdamez MD Refill Request (Xtandi)05/22/2025 11:30 AM ESTInfusion Center Hematology/Oncology [address] [place] [address] [place] [address] Malignant neoplasm of prostate (HCC) (Primary Dx)05/22/2025 11:00 AM ESTVisit (SP) Office Hematology/Oncology [address] [place] [address] [place] [address] Chary Hodge, HOSPICE HOME CARE COORDINATOR.LAG SCREWER Malignant neoplasm of prostate (HCC) (Primary Dx); Anemia, unspecified type; Other osteoporosis without current pathological fracture; Secondary malignant neoplasm of bone (HCC); Encounter for antineoplastic chemotherapy; Lactose kegozpotvij74/06/6267Ownyoj89/28/2025Travelfrom Last 3 Months Immunizations ImmunizationAdministration DatesNext DueAS03 vhebxwsq10/11/2018COVID- original vaccine, full dose, monovalent (MODERNA)01/21/2022,05/17/2021,09/22/2020, 08/24/2020OVID- vaccine (BRIANA)08/26/2020OVID- vaccine, age 12+ yr (MODERNA SPIKEVAX)04/26/2024OVID- vaccine, age 12+ yr, bivalent (MODERNA) 2diphtheria tetanus pertussis (DTaP) vaccine, unspecified formulation 06/19/2013,01/14/2003influenza (HD-IIV3) vaccine, age 65+ yr, high dose, trivalent, PF (FLUZONE HIGH-DOSE)05/01/2025,03/26/2024,05/01/2023,04/28/2022, 04/03/2017influenza (HD-IIV4) vaccine, age 65+ yr, high dose, quadrivalent, PF (FLUZONE HIGH-DOSE)04/28/2022influenza (IIV3) vaccine, trivalent, PF (AFLURIA, FLUARIX, FLULAVAL, FLUVIRIN, FLUZONE)05/11/2015,06/09/2014influenza (IIV4) vaccine, age 6 mo - 64 yr, quadrivalent, PF (AFLURIA, FLUARIX, FLULAVAL, FLUZONE)05/31/2017influenza (LAIV) vaccine, nasal, unspecified formulation 04/28/2022,04/16/2021,04/16/2019,04/16/2018,03/27/2018,05/31/2017,04/03/2017, 03/23/2017,03/31/2016,05/11/2015,06/09/2014,05/23/2013,06/11/2012,06/02/2011, 05/28/2010,05/25/2009,06/09/2008,07/03/2002influenza (aIIV3) vaccine, age 65+ yr, trivalent, PF (FLUAD)03/27/2018influenza vaccine, split virus04/22/2021, 04/23/2020,04/22/2019,04/01/2016influenza vaccine, unspecified formulation 05/01/2023,04/28/2022,04/22/2021,04/16/2021,04/23/2020,04/22/2019,04/16/2018, 03/27/2018,05/31/2017,04/03/2017,03/23/2017,04/01/2016,05/11/2015,06/09/2014, 05/23/2013,06/11/2012,06/02/2011,05/28/2010,05/25/2009,06/09/2008,07/03/2002 influenza vaccine, whole virus07/23/2003pneumococcal conjugate (PCV13) vaccine, 13 valent (PREVNAR 13)05/11/2015pneumococcal conjugate (PCV20) vaccine, 20 valent (PREVNAR 20)06/01/2017pneumococcal polysaccharide (PPV23) vaccine, 23 valent (PNEUMOVAX 23)06/12/2017,06/01/2017,04/29/2015,06/23/2010,06/07/2010, 01/14/2010pneumococcal vaccine, unspecified rrlqrukkcxv97/22/2010respiratory syncytial virus (RSV) vaccine, bivalent (ABRYSVO)04/26/2024tetanus diphtheria (Td) vaccine, adult, non-ehdlvgko81/04/2013tetanus diphtheria (Td) vaccine, adult, unspecified jwtyaqrkuel23/27/2003tetanus diphtheria (Td) vaccine, age 7+ yr, 5 Lf tetanus, PF (TENIVAC)04/24/2013tetanus diphtheria pertussis (Tdap) vaccine, age 7+ yr (ADACEL, BOOSTRIX)04/25/2024zoster (RZV) vaccine, recombinant (SHINGRIX)08/20/2018,06/11/2018zoster (ZVL) vaccine, live (ZOSTAVAX)06/27/2012 Family History Medical HistoryRelationCommentsCancerMotherCancerRelationStatusCommentsMother Social History Tobacco UseTypesPacks/DayYears UsedDateSmoking Tobacco: NeverPassive Smoke Exposure: NeverSmokeless Tobacco: Never Tobacco Cessation:Counseling Given: Not Answered Alcohol UseStandard Drinks/WeekCommentsYes0 (1 standard drink = 0.6 oz pure alcohol)1 day/wkPHQ-2AnswerDate RecordedPHQ-2 thywd200/04/2025Area Deprivation IndexAnswerDate RecordedNational Score (1-100), lower number is lower risk80 02/02/2023State Score (1-10), lower number is lower hdit9623Data from: https://www.neighborhoodatlas.medicine.[facility].edu/. Last address used for bffmjxzzbbo[address]02/02/2023Sex and Gender InformationValueDate Recorded Sex Assigned at HqtgxLgzl62/29/2022 11:48 AM EDTLegal QdsSmel9608/04/2014 8:03 AM ESTGender JgnrfdykOlan17/29/2022 11:48 AM EDTSexual OrientationStraight 02/11/2022 11:48 AM EDT Last Filed Vital Signs Vital SignReadingTime TakenCommentsBlood Gpswzyle708/56107/22/2024 10:35 AM EST Uoomb323805/22/2025 10:35 AM TLFXgssguhczke28.2 ??C (97.2 ??F)05/22/2025 10:35 AM ESTRespiratory Jjlv999307/22/2024 10:35 AM ESTOxygen Tvlvdsnqrk60%05/22/2025 10:35 AM ESTInhaled Oxygen Concentration--Qwmues45.3 kg (203 lb 7.8 oz)05/22/2025 10:35 AM PHQTwdhmn540.6 cm (5' 5.98 )05/22/2025 10:35 AM ESTBody Mass Index32.86 05/22/2025 10:35 AM EST Plan of Treatment DateTypeDepartmentCare Team (Latest Contact Info)Cbojwodjpyi76/22/2026 11:30 AM ESTOffice Visit [facility] [address] [place] [address] 3 month follow up with xgeva inj08/14/2025 11:00 AM ESTVisit (SP) Office Hematology/Oncology [address] [place] [address] Chary Hodge APRN.LAG SCREWER [address] [place] [address] 3 month follow up with xgeva inj08/14/2025 11:30 AM ESTInfusion Center Hematology/Oncology [address] [place] [id number] 3 month follow up with xgeva injHealth MaintenanceDue DateLast DoneComments Anxiety Ascobnfzs87/31/1964Depression Bnkqjtbvc52/31/1964Medicare Annual Wellness Visit01/14/2011dvance Directive Gkzttimldb31/01/2025Covid-19 Vaccine ( season)51, 04/21/2022, 01/21/2022, Additional history existsDiabetes Ttjuwmbyg17, 2025, 10/31/2024, Additional history existsDTaP,Tdap,Td Vaccine (6 - Td or Tdap)04/25/2034 04/25/2024, 06/19/2013, 06/19/2013, Additional history existsPneumococcal Vaccine: 50+Jdczstzug12/27/2017, 06/01/2017, 06/01/2017, Additional history existsShingrix RdeiyeqQockxrkmc85/04/2019, 06/11/2018, 06/27/2012RSV Vaccine Fcgxyjybo60/11/2024Influenza UqhtaghVnsbosaos33/16/2025, 03/26/2024, 05/01/2023, Additional history exists Procedures Procedure NamePriorityDate/TimeAssociated DiagnosisCommentsERYTHROPOIETIN/EPO Zswtebu0205/15/2025 11:10 AM EDT Malignant neoplasm of prostate (HCC) Anemia, unspecified type FOLATE CEBZBNjgtjni97/30/2025 11:10 AM EDT Malignant neoplasm of prostate (HCC) Anemia, unspecified type VITAMIN B12 EMBDTEciotig72/30/2025 11:10 AM EDT Malignant neoplasm of prostate (HCC) Anemia, unspecified type FERRITIN MLTZhwktzp36/30/2025 11:10 AM EDT Malignant neoplasm of prostate (HCC) Anemia, unspecified type IRON + TCSGRnxbdqq02/30/2025 11:10 AM EDT Malignant neoplasm of prostate (HCC) Anemia, unspecified type COMPREHENSIVE METABOLIC JGANYBptqhwt79/30/2025 11:10 AM EDT Malignant neoplasm of prostate (HCC) Anemia, unspecified type CBC + AZDFTysyiks50/30/2025 11:10 AM EDT Malignant neoplasm of prostate (HCC) Anemia, unspecified type PSA/PROSTSPECAG YYTJCowpfuy75/30/2025 11:10 AM EDT Malignant neoplasm of prostate (HCC) Anemia, unspecified type from Last 3 Months Results * VITAMIN B12 (05/15/2025 11:10 AM EDT)ComponentValueRef RangeTest Method Analysis TimePerformed AtPathologist SignatureVitamin [id number] - 1,245 pg/mL 05/15/2025 7:43 PM EDTCSELECT [facility] MAIN LABSpecimen (Source)Anatomical Location / LateralityCollection Method / VolumeCollection TimeReceived Time BloodBLOOD SPECIMEN / UnknownVenipuncture / Geqpvuy3805/15/2025 11:10 AM EDT 05/15/2025 11:11 AM EDT Narrative Authorizing ProviderResult TypeResult StatusVivenathan Galdamez MDLABORATORYFinal ResultPerforming OrganizationAddressCity/State/ZIP CodePhone Number [facility] [address] [place] [address], * PROSTATE-SPECIFIC ANTIGEN DIAGNOSTIC (05/15/2025 11:10 AM EDT)ComponentValue Ref RangeTest MethodAnalysis TimePerformed AtPathologist SignaturePSA0.39<2.60 ng/mL05/15/2025 7:29 PM [facility] MAIN LABComment:Total PSA test methodology used is the Electrochemiluminescence Immunoassay by [employer]. Total PSA values by differing methodologies cannot be interchanged.Specimen (Source)Anatomical Location / LateralityCollection Method / VolumeCollection TimeReceived TimeBloodBLOOD SPECIMEN / Unknown Venipuncture / Nodgqdi3505/15/2025 11:10 AM EDT1 11:11 AM EDT Narrative Authorizing ProviderResult TypeResult StatusVivenathan Galdamez MDLABORATORYFinal ResultPerforming OrganizationAddressty/State/ZIP CodePhone Number [facility] [address] * (ABNORMAL) IRON AND TIBC (05/15/2025 11:10 AM EDT)ComponentValueRef RangeTest MethodAnalysis TimePerformed AtPathologist QshfayiclEvop2758 - 186 ug/dL 05/15/2025 7:26 PM EDCH[facility] MAIN NRQXGCB952(H)232 - 386 ug/dL 05/15/2025 7:26 PM [facility] MAIN LABTransferrin Clwhhaaycb98.815.0 - 57.0 %05/15/2025 7:26 PM [facility] MAIN LABSpecimen (Source) Anatomical Location / LateralityCollection Method / VolumeCollection Time Received TimeBloodBLOOD SPECIMEN / UnknownVenipuncture / Gokxjni6405/15/2025 11:10 AM EDT1 11:11 AM EDT Narrative Authorizing ProviderResult TypeResult StatusVivek eboniemiguel IDLABORATORYFinal ResultPerforming OrganizationAddressCity/State/ZIP CodePhone Number [facility] [address] [place] [address], * FOLATE, SERUM (05/15/2025 11:10 AM EDT)ComponentValueRef RangeTest Method Analysis TimePerformed AtPathologist SignatureFolate>20.0>4.7 ng/mL05/15/2025 7:43 PM [facility] MAIN LABComment: A result of > 20 ng/mL is not necessarily indicative of a pathologic or treatable condition: it reflects a limitation of the test methodology. Assay reference range: 4.8 to 24.2 ng/mL. Suitable for detection of folate deficiency. Reference: Folate III (Folate III) [package insert V 1.0 Iranian]. [employer], [place], [place]: May 2015. Specimen (Source)Anatomical Location / LateralityCollection Method / Volume Collection TimeReceived TimeBloodBLOOD SPECIMEN / UnknownVenipuncture / Unknown 05/15/2025 11:10 AM EDT1 11:11 AM EDT Narrative Authorizing ProviderResult TypeResult StatusVivek Abhyankmiguel MDLABORATORYFinal ResultPerforming OrganizationAddressCity/State/ZIP CodePhone Number [facility] [address] [place] [address], [place] * FERRITIN (05/15/2025 11:10 AM EDT)ComponentValueRef RangeTest MethodAnalysis TimePerformed AtPathologist MamvnmdwmMzhifyer15.930.3 - 565.7 ng/mL05/15/2025 7:43 PM EDTCSELECT [facility] MAIN LABSpecimen (Source)Anatomical Location / LateralityCollection Method / VolumeCollection TimeReceived TimeBloodBLOOD SPECIMEN / UnknownVenipuncture / Qeqokxs9105/15/2025 11:10 AM EDT1 11:11 AM EDT Narrative Authorizing ProviderResult TypeResult StatusSaul Galdamez LABORATORYFinal ResultPerforming OrganizationAddressCity/State/ZIP CodePhone Number [facility] [address] [place] [address], * ERYTHROPOIETIN/EPO (05/15/2025 11:10 AM EDT)ComponentValueRef RangeTest Method Analysis TimePerformed AtPathologist FrtqqhydlQbxhzihvrrvnko22.52.6 - 18.5 mIU/mL05/16/2025 9:41 AM EDTCCLEVEL[facility]IN[facility] LABSpecimen (Source) Anatomical Location / LateralityCollection Method / VolumeCollection Time Received TimeBloodBLOOD SPECIMEN / UnknownVenipuncture / Nrwvueq2305/15/2025 11:10 AM EDT1 11:11 AM EDT Narrative [facility] - 05/16/2025 9:41 AM EDT Test analyzed by the Esperanza DxI method. Authorizing ProviderResult TypeResult StatusSaul Galdamez MDLABORATORYFinal ResultPerforming OrganizationAddressCity/State/ZIP CodePhone Number [facility] [address] [place] [address], * (ABNORMAL) COMPREHENSIVE METABOLIC PANEL (05/15/2025 11:10 AM EDT)Component ValueRef RangeTest MethodAnalysis TimePerformed AtPathologist Signature Protein, Total6.56.3 - 8.0 g/dL05/15/2025 11:49 AM EDTNORTHCOAST [facility] LABAlbumin4.23.9 - 4.9 g/dL05/15/2025 11:49 AM EDTNORTHCOAST [facility] LABCalcium, Total10.08.5 - 10.2 mg/dL05/15/2025 11:49 AM EDTNORTHCST [facility] LABBilirubin, Total0.80.2 - 1.3 mg/dL 05/15/2025 11:49 AM [facility] LABAlkaline Urypnvpqdeh3803 - 113 U/L1 11:49 AM [facility] MNEIOX8074 - 40 U/L1 11:49 AM [facility] VZFWVE1472 - 54 U/L1 11:49 AM [facility] CVRIxvfnpr273(H)74 - 99 mg/dL05/15/2025 11:49 AM [facility] LABComment: The [place] [employer] (ADA) provides guidance for cutoff values for fasting glucose andrandom glucose. The ADA defines fasting as no [...] Standards of Medical Care in Diabetes 2016, [place] [employer]. Diabetes Care. 2016.39(Suppl 1). PHV168 - 24 mg/dL05/15/2025 11:49 AM [facility] LAB Creatinine0.730.73 - 1.22 mg/dL05/15/2025 11:49 AM [facility] XIVJletwu739092 - 144 mmol/L1 11:49 AM [facility] LABPotassium4.73.7 - 5.1 mmol/L1 11:49 AM [facility] JLUFlkwlxsv48592 - 107 mmol/L1 11:49 AM EDT [facility] GGCZA63861 - 30 mmol/L1 11:49 AM EDT [facility] LABAnion Izg707 - 15 mmol/L1 11:49 AM EDTNORTUNIV[facility] LABEstimated Glomerular Filtration Rate93 >=60 mL/min/1.73m 05/15/2025 11:49 AM EDTVETERANS AFF[facility]IRS MED[facility] LABComment:Estimated Glomerular Filtration Rate (eGFR) is calculated using the 2020 CKD-EPI creatinine equation. This equation utilizes serum creatinine, sex, and age as parameters. The creatinine assay has traceable calibration to isotope dilution- mass spectrometry. Refer to KDIGO guidelines for clinical interpretation. In patients with unstable renal function, e.g. those with acute kidney injury, the eGFRmay not accurately reflect actual GFR.Specimen (Source)Anatomical Location / LateralityCollection Method / VolumeCollection TimeReceived TimeBloodBLOOD SPECIMEN / UnknownVenipuncture / Zsqcspw7905/15/2025 11:10 AM EDT1 11:11 AM EDT Narrative Authorizing ProviderResult TypeResult StatusVivenathan Galdamez MDLABORATORYFinal ResultPerforming OrganizationAddressCity/State/ZIP CodePhone Number [facility] [address] [place] [address] * (ABNORMAL) COMPLETE BLOOD COUNT AND DIFFERENTIAL (05/15/2025 11:10 AM EDT) ComponentValueRef RangeTest MethodAnalysis TimePerformed AtPathologist SignatureWBC6.943.70 - 11.00 k/uL05/15/2025 11:27 AM EDTNORTUNIVERSITY OF [facility] LABRBC3.64(L)4.20 - 6.00 m/uL05/15/2025 11:27 AM EDTNORTUN[facility] ABOTdcdlbcyvn38.7(L)13.0 - 17.0 g/dL05/15/2025 11:27 AM EDTNORTUN[facility] VIXEhwonvllzz52.8(L)39.0 - 51.0 % 05/15/2025 11:27 AM EDTNORTUN[facility] DEWMFT00.680.0 - 100.0 fL05/15/2025 11:27 AM [facility] XQDTFN04.1 26.0 - 34.0 pg05/15/2025 11:27 AM [facility] LABMCHC 33.630.5 - 36.0 g/dL05/15/2025 11:27 AM [facility] LABRDW-CV12.611.5 - 15.0 %05/15/2025 11:27 AM [facility] LABPlatelet Numxq109926 - 400 k/uL05/15/2025 11:27 AM [facility] JTRLOS73.49.0 - 12.7 fL05/15/2025 11:27 AM EDT [facility] LABNeutrophils %55.9%05/15/2025 11:27 AM EDT [facility] LABAbs Neut3.881.45 - 7.50 k/uL05/15/2025 11:27 AM [facility] LABLymphocytes %29.0%05/15/2025 11:27 AM [facility] LABAbs Lymph2.011.00 - 4.00 k/uL 05/15/2025 11:27 AM [facility] LABMonocytes %8.6% 05/15/2025 11:27 AM [facility] LABAbs Mono0.60<0.87 k/uL05/15/2025 11:27 AM [facility] LABEosinophils % 5.2%05/15/2025 11:27 AM [facility] LABAbs Eosin0.36 <0.46 k/uL05/15/2025 11:27 AM [facility] Basophils %0.4%05/15/2025 11:27 AM [facility] LABAbs Baso0.03<0.11 k/uL05/15/2025 11:27 AM [facility]TV[facility] LAB Immature Granulocytes %0.9%05/15/2025 11:27 AM [facility] LABAbs Immature Gran0.06<0.10 k/uL05/15/2025 11:27 AM [facility]TV[facility] LABNRBC0.0/100 WBC05/15/2025 11:27 AM [facility]TV[facility] LABAbsolute nRBC<0.01<0.01 k/uL05/15/2025 11:27 AM EDT [facility] LABDiff LujtFllz07/30/2025 11:27 AM EDT [facility] LABSpecimen (Source)Anatomical Location / LateralityCollection Method / VolumeCollection TimeReceived TimeBloodBLOOD SPECIMEN / UnknownVenipuncture / Huiwnid1805/15/2025 11:10 AM EDT1 11:11 AM EDT Narrative Authorizing ProviderResult TypeResult StatusSaul Galdamez MDLABORATORYFinal ResultPerforming OrganizationAddressCity/State/ZIP CodePhone Number [facility] [address] [place] [address] from Last 3 Months Insurance Care Teams Team MemberRelationshipSpecialtyStart DateEnd Date Robert Jamar Lopez, PCP - GeneralInternal Medicine08/04/14 Galina Wall, ROCHELLE.LAG SCREWER [address] [place] [address] Nurse PractitionerHematology/Oncology11/02/21 Clementine Aguilar, ANITHA [address] [place] [address] Specialty Care CoordinatorHematology/Oncology11/02/21 Saul Galdamez MD [address] [place] [address] PhysicianHematology/Oncology01/21/25
--- OUTSIDE RECORDS SUMMARY | 2025-05-29 08:12 | XMS_ITS | CCD ---
Author Organization [facility] Care Team Providers Care Electronic Device Repairer Name Role Phone Jamar Fall DO Primary Care Provider Dheeraj JAMES, Marco A R Unavailable [facility] [employer] FORMING MACHINE SET UP MECHANIC.ALXEA, Christo Unavailable [phone] Lauren RN, Clementine Unavailable [phone] JAMAR FALL Primary Care Physician Jamar Fall DO Primary Care Provider Marco A Esqueda MD R Unavailable [facility] RO[employer] FORMING MACHINE SET UP MECHANIC.ALEXA, Christo Unavailable [phone] Lauren WELSH, Clementine Unavailable [phone] Jamar Fall DO Primary Care Provider Dheeraj JAMES, Marco A R Unavailable [facility] RO[employer] FORMING MACHINE SET UP MECHANIC.ASSISTANT SALES CENTER MANAGER, Christo Unavailable Lauren RN, Clementine Unavailable Jamar Fall Unavailable JUAN DAVID, DR ALCARAZ Admitting Unavailable JUAN DAVID, DR ALCARAZ Attending Unavailable JUAN DAVID, DR ALCARAZ Primary Care Unavailable JUAN DAVID, DR ALCARAZ Consulting Unavailable Cynthia Torres Consulting Unavailable SRCUGGS ., DR CRUZ Admitting Unavailable SCRUGGS ., [...] Consulting Unavaila ble Lauren RN, Clementine Unavailable [phone] Jamar Fall MD Primary Care Provider Juan David SEGUNDO, Jamar E Primary Care Provider LONG BOO Attending Unavailable MARCO A ESQUEDA Referring Unavailable EMELINA LOUIS Attending Unavailable JUAN DAVID JAMAR E Referring Unavailable PABLO CHRISTINA Attending Unavailable LONG BOO Attending Unavailable ALEXIA FRANCO Attending Unavailable Juan David SEGUNDO, Jamar Jessica Primary Care Provider Sharon JAMES, Nicole Lang Attending Unavailable Sharon JAMES, Andrius Precious Attending Unavailable Sharon JAMES, Andrius Vjob Attending Unavailable SCRUGGS, Anthony R Attending Unavailable SCRUGGS, Anthony R Attending Unavailable SCRUGGS, Anthony R Attending Unavailable SCRUGGS, Anthony R Attending Unavailable SCRUGGS, Anthony R Attending Unavailable ANIRUDH QUIROZ Attending Unavailable Jamar Fall DO Primary Care Provider Marco A Esqueda MD Attending Provider Unavailable Richie RADIO ELECTRONICS TECHNICIAN-CAnirudh Attending Provider Provider, Outside Attending Provider Unavailable Jamar Fall DO Attending Provider JUAN DAVID, JAMAR E Primary Care Unavailable MARCO A ESQUEDA Referring Unavailabl e CHARY SHERMAN Attending Unavailable ABHYANKAR, SAUL Referring Unavailable BALL, JAMAR E Primary Care Unavailable BALL, JAMAR E Primary Care Unavailable BALL, JAMAR E Primary Care Unavailable MARCO A ESQUEDA Referring Unavailabl e ABHYANKAR, SAUL Attending Unavailable ABHYANKAR, SAUL Referring Unavailable BALL, JAMAR E Primary Care Unavailable ABHYANKAR, SAUL Referring Unavailable BALL, JAMAR E Primary Care Unavailable MARCO A ESQUEDA Referring Unavailabl e BALL, JAMAR E Primary Care Unavailable MARCO A ESQUEDA Referring Unavailabl e BALL, JAMAR E Primary Care Unavailable MARCO A ESQUEDA Attending Unavailabl e BALL, JAMAR E Primary Care Unavailable MARCO A ESQUEDA Referring Unavailabl e BALL, JAMAR E Primary Care Unavailable MARCO A ESQUEDA Referring Unavailabl e BALL, JAMAR E Primary Care Unavailable CHRISTO HOWARD Attending Unavailable BALL, JAMAR E Primary Care Unavailable Allergies Allergy ClassificationReported Allergen(s)Allergy TypeDate of OnsetReaction(s) Facility (18 sources)Penicillins; Translations: [PENICILLINS]Drug Sfgxkrt09-93-2325 [facility] (20 sources)Penicillin G; Translations: [penicillin G benzathine]Drug Allergy 33-73-5065Onzievr (qualifier value)[facility] (20 sources)PenicillinsDrug Rtdrkst86-04-8742[facility] (20 sources)Simvastatin; Translations: [SIMVASTATIN]Drug Xmhcotr25-22-8065 [facility] (1 source)PenicillinsDrug allergy (disorder)34-01-2829[facility] (1 source)PenicillinDrug AllergyUnkuniversity medical center of southern nevadaAgRobotics Other (1 source)Allergies ReconciledPropensity to adverse reactionsLogansport Memorial HospitalAgRobotics Other (1 source)patient allergy list reviewed by nurse or physiciaPropensity to adverse suemzpeka12-00-6247Rrrumdw:[facility] Other (6 sources)SimvastatinPropensity to adverse -38-4665[facility] (1 source)PenicillinsDrug Sxecpgr60-59-3621[facility]qxww [facility] Medications Current Medications MedicationDrug Class(es)DatesSig (Normalized)Sig (Original)Aspir-81 81 MG (20 sources)take 1 tablet by mouth once dailyAspir-81 81 MG 1 tablet Orally Once a day Activeaspirin 81 mg delayed release oral tablet (20 sources)Platelet Aggregation Inhibitor, Nonsteroidal Anti-inflammatory Drug Start: 34-00-4669jtbd 1 tablet by mouth once dailyAspirin 81 mg tablet,delayed release (DR/EC) Active 81 MG PO Daily September 08, 2023 1:00am Complies with drug therapyStart: 54-56-0839rddi 1 mg by mouth once dailyaspirin 81 mg oral tablet mg tab(s), Oral, Daily, Refills(s) 0 Start Date: 02/04/19 Status: Ordered Repeat number: 1Comment on above:Take 81 mg by mouth once daily.atorvastatin 40 mg oral tablet (20 sources)HMG-CoA Reductase InhibitorStart: 34-74-6711hjcj 1 tablet by mouth once daily in the eveningAtorvastatin 40 mg tablet Active 0 .ROUTE .COMPLEX 90 September 01, 2024 9:43am TAKE 1 TABLET BY MOUTH ONCE EVERY EVENING Complies with drug therapyStart: 09-06-2023 End: 04-34-3988nioy 1 tablet by mouth once daily in the eveningAtorvastatin 40 mg tablet Discontinued 0 .ROUTE .COMPLEX 90 September 06, 2023 9:32am September 08, 2023 3:51pm TAKE 1 TABLET BY MOUTH ONCE EVERY EVENINGStart: 04-17-2023 End: 06-81-0701vhof 1 tablet by mouth once dailyAtorvastatin 40 mg tablet Discontinued 40 MG PO Daily September 08, 2023 3:49pm September 01, 2024 9:43amStart: 38-29-6404zqkq 1 tablet by mouth once dailyatorvastatin 20 mg Tab 20 mg = 1 tab(s), Oral, Daily, Refills(s) 0 Start Date: 02/04/19 Status: Ordered Comment on above:Take 20 mg by mouth once daily.Take 40 mg by mouth once daily. calcium citrate 950 mg / cholecalciferol 250 unt oral tablet (20 sources)Vitamin DStart: 46-81-5907yljl 2 tablets by mouth once dailyCalcium Citrate-Vitamin D3 200 mg-6.25 mcg (250 unit) tab Take 2 tablets by mouth once daily. 04/28/2022 ActiveComment on above:Take 2 tablets by mouth once daily. Contour Next - (20 sources)Contour Next - use one test strip to check home blood sugar transcutaneous daily for 30 days ActiveContour Next - use one test strip to check home blood sugar daily Activeenzalutamide 40 mg oral tablet (20 sources)Androgen Receptor InhibitorStart: 04-01-2024 End: 12-57-4651pzgf 4 tablets by mouth once dailyenzalutamide (XTANDI) 40 mg tablet Take 4 tablets (160 mg) by mouth once daily. 120 tablet 11 05/08/2024 ActiveStart: 05-08-2023 End: 11-10-3836qplc 2 tablets by mouth once dailyenzalutamide (XTANDI) 80 mg tablet TAKE 2 TABLETS (160 MG) BY MOUTH ONCE DAILY. 60 tablet 11 04/01/2024 08/08/2024 Discontinued (Discontinued by Patient)Start: 63-75-3956uonq 1 mg by mouth once dailyXtandi 80 mg oral tablet mg tab(s), Oral, Daily, Refills(s) 0 Start Date: 05/13/22 Status: Ordered Repeat number: 1Start: 10-28-2021 End: 34-55-9695wdne 2 tablets by mouth once dailyenzalutamide (XTANDI) 80 mg tablet Take 2 tablets (160 mg) by mouth once daily. 60 tablet 3 10/28/2021 04/27/2023 DiscontinuedComment on above:Take 2 tablets (160 mg) by mouth once daily.fluocinonide 0.5 mg/ml topical cream (3 sources)CorticosteroidStart: 02-26-2024 End: 69-08-9361uisqtpjlhncm (Lidex) 0.05 % cream Indications: Psoriasis vulgaris Apply topically 2 (two) times a day 60 g 11 02/26/2024 02/25/2025 Active fluorouracil 50 mg/ml topical cream (5 sources)Nucleoside Metabolic InhibitorStart: 22-17-5237njulvbztpipe (Efudex) 5 % cream Indications: Actinic keratosis Apply to directed areas on the face, ears and back of hands twice a day x 14 days. Dispense 30 day supply but only use for 14 days. 40 08/28/2023 Activeglimepiride 1 mg oral tablet (20 sources)SulfonylureaStart: 18-52-0471bplz 0.5 tablet by mouth once daily at breakfastGlimepiride 1 mg tablet Active 0 .ROUTE .COMPLEX August 02, 2024 3:03pm TAKE 1/2 TABLET BY MOUTH DAILY 30 MINUTES PRIOR TO BREAKFAST Complies with drug therapyStart: 23-11-2109blbl 0.5 mg by mouth once dailyGlimepiride Active 0.5 MG PO Daily September 08, 2023 1:00amStart: 10-15-2021 End: 66-09-9456ngct 0.5 mg by mouth once dailyGlimepiride 1 mg tablet Discontinued 0.5 MG PO Daily September 08, 2023 1:00am August 02, 2024 3 :03pmStart: 52-79-3130epep 0.5 mg by mouth once dailyGLIMEPIRIDE ORAL Take 0.5 mg by mouth once daily. 10/15/2021 ActiveStart: 93-12-1286jfcj 0.5 mg by mouth once dailyGLIMEPIRIDE ORAL Take 0.5 mg by mouth once daily. 0 10/15/2021 Active Start: 03-71-2350dqtzvlueans Oral, Daily, Refills(s) 0 Start Date: 05/14/21 Status: Ordered Repeat number: 1Start: 92-87-6724ohzxwvczeur Oral, Daily, Refills(s) 0 Start Date: 05/14/21 Status: OrderedComment on above:TAKE 1/2 TABLET BY MOUTH DAILY 30 MINUTES PRIOR TO BREAKFASTTake 0.5 mg by mouth once daily. hydroCHLOROthiazide 12.5 mg / lisinopril 20 mg oral tablet (20 sources)Thiazide Diuretic, Angiotensin Converting Enzyme InhibitorStart: 10-12-2023 End: 45-60-0561jmyp 1 tablet by mouth once dailyLisinopril-Hydrochlorothiazide 20-12.5 mg tablet Active 0 .ROUTE .COMPLEX 90 October 07, 2024 6:50am TAKE 1 TABLET BY MOUTH EVERY DAY Complies with drug therapyStart: 02-04-2019 End: 01-67-8007nifs 1 tablet by mouth once dailyLisinopril-Hydrochlorothiazide 20-12.5 mg tablet Discontinued 1 TAB PO Daily September 08, 2023 1:00am October 12, 2023 9:34amtake 1 tablet by mouth in the morninglisinopril- hydroCHLOROthiazide 20-12.5 MG tablet Take 1 tablet by mouth in the morning. Activetake 1 tablet by mouth once dailyLisinopril-hydroCHLOROthiazide 20-12.5 MG TAKE 1 TABLET BY MOUTH EVERY DAY ActiveComment on above:Take 1 tablet by mouth once daily.ipratropium bromide 0.042 mg/actuat metered dose nasal spray (19 sources)AnticholinergicStart: 59-60-1718zsqf 1 spray(s) nasal route three times dailyIpratropium [place] 42 mcg (0.06 %) spray,non-aerosol Active 2 SPRAY INTRANASAL Three times daily December 27, 2024 12:00am administer into each nostril Complies with drug therapyStart: 87-01-2296nrhsxbbhvvb Nasal 0.06% [place] Refill(s) 0 Start Date: 10/20/23 Status: Ordered Repeat number: 1Start: 06-05-2023 End: 22-17-5807yklq 2 spray(s) nasal route in the morning, then take 2 spray(s) nasal route in the evening, then take 2 spray(s) nasal route at bedtime ipratropium (Atrovent) 0.06 % nasal spray Indications: Vasomotor rhinitis Administer 2 sprays into each nostril in the morning and 2 sprays in the evening and 2 sprays before bedtime. 45 mL 3 06/05/2023 ActiveStart: 06-05-2023 End: 76-42-5979ngzjeutvigj bromide (ATROVENT) 42 mcg (0.06 %) nasal spray 2 Sprays. 06/05/2023 06/04/2024 ActiveComment on above:2 Sprays.metFORMIN hydrochloride 500 mg oral tablet (20 sources)BiguanideStart: 79-14-6995hmmo 2 tablets by mouth once daily at mealtimeMetformin 500 mg tablet Active 0 .ROUTE .COMPLEX 180 July 31, 2024 8:39am TAKE 2 TABLETS BY MOUTH DAILY WITH FOOD 90 Complies with drug therapy Start: 09-08-2023 End: 66-24-5867afky 2 tablets by mouth once dailyMetformin 500 mg tablet Discontinued 1000 MG PO Daily September 08, 2023 1:00am July 31, 2024 8:39amStart: 14-11-7044xozw 1000 mg by mouth once dailyMetformin Active 1000 MG PO Daily September 08, 2023 1:00amStart: 36-15-7198kqtk 1 tablet by mouth once dailymetFORMIN (GLUCOPHAGE) 1,000 mg tablet Take 1,000 mg by mouth once daily. 08/17/2021 ActiveStart: 06-83-7956nitf 2 tablets by mouth once daily at mealtime metFORMIN (GLUCOPHAGE) 500 mg tablet TAKE 2 TABLETS BY MOUTH ONCE A DAY WITH FOOD 0 08/17/2021 ActiveStart: 07-72-2720xsor 1 mg by mouth twice dailymetformin 1000 mg oral tablet mg tab(s), Oral, BID, Refills(s) 0 Start Date: 05/14/21 Status: Ordered Repeat number: 1take 1 tablet by mouth at mealtime, then take 1 tablet by mouth every twenty-four hoursmetFORMIN, OSM, (Fortamet) 500 MG 24 hr tablet Take 500 mg by mouth in the evening. Take with mealsDo not crush, chew, or split. ActivemetFORMIN HCl 500 MG 1 tablet with a meal ActiveComment on above:TAKE 2 TABLETS BY MOUTH ONCE A DAY WITH FOODTake 1,000 mg by mouth once daily. metoprolol tartrate 25 mg oral tablet (20 sources)beta-Adrenergic BlockerStart: 12-04-2023 End: 88-19-7747elqq 1 tablet by mouth twice dailyMetoprolol Tartrate 25 mg tablet Active 0 .ROUTE .COMPLEX 180 October 08, 2024 12:01pm TAKE 1 TABLET BY MOUTH TWICE A DAY Complies with drug therapyStart: 49-64-4544gszi 1 tablet by mouth twice dailyMetoprolol Tartrate Active 0 .ROUTE .COMPLEX 180 December 04, 2023 1:04pm TAKE 1 TABLET BY MOUTH TWICEA DAYStart: 09-08-2023 End: 94-09-2099jgjv 1 tablet by mouth twice dailyMetoprolol Tartrate 25 mg tablet Discontinued 25 MG PO Twice daily September 08, 2023 1:00am December 04, 2023 1:04pmStart: 45-89-5408kqjg 1 tablet by mouth every twenty-four hours metoprolol succinate ER (TOPROL XL) 25 mg 24 hr tablet Take by mouth. 02/04/2019 ActiveStart: 94-70-1337xwwy 1 tablet by mouth twice dailymetoprolol 25 mg ER Tab 25 mg = 1 tab(s), Oral, BID, Refills(s) 0 Start Date: 02/04/19 Status: Sherriee d Repeat number: 1take 1 tablet by mouth every twelve hoursmetoprolol tartrate (Lopressor) 25 MG tablet Take 25 mg by mouth every 12 (twelve) hours Active End: 65-15-4822lxxx 1 tablet by mouth twice dailyMetoprolol Tartrate 25 MG TAKE 1 TABLET BY MOUTH TWICE A DAY ActiveComment on above:Take 25 mg by mouth.Take 25 mg by mouth twice daily. Take by mouth.Xtoxbiksvkbdb-Ecwngmqd-Fobvcx (MULTIVITAMIN 50 PLUS) tab (20 sources)Gxafhfzfugpxs-Vmrtqrow-Gxfbvf (MULTIVITAMIN 50 PLUS) tab Take 1 tablet by mouth once daily. RbfneiUqfdqtzymcksn-Ahvycdax-Ezeety (MULTIVITAMIN 50 PLUS) tab Take 1 tablet by mouth once daily. 0 ActiveComment on above:Take 1 tablet by mouth once daily.traMADol hydrochloride 50 mg oral tablet (2 sources)Opioid AgonistStart: 26-88-3267rrkCGHsk HCl 50 MG 1 Orally every 8 hours as needed for 7 days Jul, ActiveVitamin D3 (6 sources)Start: 39-07-4211Qyhpqfl D3 Start Date: 06/22/20 Status: Ordered Repeat number: 1Start: 03-10-1872Mwgwawf D3 Start Date: 06/22/20 Status: Ordered Completed/Discontinued Medications MedicationDrug Class(es)DatesSig (Normalized)Sig (Original)acetaminophen 325 mg / HYDROcodone bitartrate 5 mg oral tablet (2 sources)Opioid AgonistHYDROcodone-acetaminophen (NORCO) 5-325 mg per tablet hydrocodone 5 mg-acetaminophen 325 mg tablet 0 ActiveComment on above: hydrocodone 5 mg-acetaminophen 325 mg tabletamiodarone hydrochloride 200 mg oral tablet (2 sources)Antiarrhythmicamiodarone (PACERONE) 200 mg tablet amiodarone 200 mg tablet 0 ActiveComment on above:amiodarone 200 mg tabletcalcium carbonate/vitamin D2 (CALCIUM + VITAMIN D ORAL) (12 sources) End: 05-36-7808pvhh 1 tablet by mouth twice dailycalcium carbonate/vitamin D2 (CALCIUM + VITAMIN D ORAL) Take 1 tablet by mouth twice daily. 0 05/12/2022 Discontinued (Discontinued by Patient)take 1 tablet by mouth twice dailycalcium carbonate/vitamin D2 (CALCIUM + VITAMIN D ORAL) Take 1 tablet by mouth twice daily. 0 ActiveComment on above:Take 1 tablet by mouth twice daily.clopidogrel 75 mg oral tablet (2 sources)P2Y12 Platelet Inhibitorclopidogrel (PLAVIX) 75 mg tablet clopidogrel 75 mg tablet 0 ActiveComment on above:clopidogrel 75 mg tablet1.7 ml denosumab 70 mg/ml injection (3 sources)RANK Ligand InhibitorStart: 08-08-2024 End: 39-21-2354omblgt 1 dose by subcutaneous injection baih634 mg, SUBCUTANEOUS, ONCE, 1 dose, On [place] 08/08/24 at 1000, REFRIGERATEStart: 05-09-2024 End: 50-84-5169zsuwvf 1 dose by subcutaneous injection ndjy840 mg, SUBCUTANEOUS, ONCE, 1 dose, On [facility] 05/09/24 at 1000, REFRIGERATEStart: 02-02-2024 End: 64-80-4797lkenoxeyr 120 mg injection (XGEVA)docusate sodium 100 mg oral capsule (2 sources)docusate sodium (COLACE) 100 mg capsule q 24 HR. 0 ActiveComment on above:q 24 HR.enteric contrast (will be provided with radiology test) (3 sources)Start: 10-28-2021 End: 49-26-6975yoqpcdf contrast (will be provided with radiology test) For CT CHESTABD/PEL W IVCON Routine order Administer, As Directed One Time Only, via Oral, Rectal, both Oral and Rectal, Enteric Tube, Stoma orIndwelling Catheter, Enteric Contrast as designated per enteric contrast guidelines 1 Each 0 022 10/29/2021 ExpiredStart: 10-28-2021 End: 88-66-5651mlctxzl contrast (will be provided with radiology test) For CT CHESTABD/PEL W IVCON Routine order Administer, As Directed One Time Only, via Oral, Rectal, both Oral and Rectal, Enteric Tube, Stoma orIndwelling Catheter, Enteric Contrast as designated per enteric contrast guidelines 1 Each 0 022 10/29/2021 ActiveComment on above:For CT CHESTABD/PEL W IVCON Routine order Administer, As Directed One Time Only, via Oral, Rectal, both Oral and Rectal, Enteric Tube, Stoma or Indwelling Catheter, Enteric Contrast as designated per enteric contrast guidelinesferrous sulfate 325 mg oral tablet (2 sources)take 1 tablet by mouth three times daily at mealtimeferrous sulfate 325 mg (65 mg iron) tablet ferrous sulfate 325 mg (65 mg iron) tablet Take 1 tablet3 times a day by oral route with meals for 30 days. 0 ActiveComment on above:ferrous sulfate 325 mg (65 mg iron) tablet Take 1 tablet 3 times a day by oral route with meals for 30 days.finasteride 5 mg oral tablet (2 sources)5-alpha Reductase Inhibitorfinasteride (PROSCAR) 5 mg tablet q 24 HR. 0 ActiveComment on above:q 24 HR.furosemide 40 mg oral tablet (2 sources)Loop Diureticfurosemide (LASIX) 40 mg tablet q 24 HR. 0 ActiveComment on above:q 24 HR.ibuprofen 800 mg oral tablet (2 sources)Nonsteroidal Anti-inflammatory Drugibuprofen (MOTRIN) 800 mg tablet ibuprofen 800 mg tablet 0 ActiveComment on above:ibuprofen 800 mg tabletiv contrast (will be provided with radiology test) (3 sources)Start: 10-28-2021 End: 65-44-0681dp contrast (will be provided with radiology test) CT Chest ABD/PEL-Inject, intravenously, once for1 dose.No IV access, insert saline lock prior to the beginning of sedation, infusion, injection of imaging exam. Discontinue saline lock post exam. If Pt. has a central line or IVAD, may access for administration according to line specific nursing protocol. Once exam is complete flush line and de-access according to line specific nursing protocol in the CT contrast administration guidelines link.1 Each 0 10/28/2021 10/29/2021 ExpiredStart: 10-28-2021 End: 82-23-1635bc contrast (will be provided with radiology test) CT Chest ABD/PEL-Inject, intravenously, once for1 dose.No IV access, insert saline lock prior to the beginning of sedation, infusion, injection of imaging exam. Discontinue saline lock post exam. If Pt. has a central line or IVAD, may access for administration according to line specific nursing protocol. Once exam is complete flush line and de-access according to line specific nursing protocol in the CT contrast administration guidelines link.1 Each 0 10/28/2021 10/29/2021 ActiveComment on above:CT Chest ABD/PEL-Inject, intravenously, once for 1 dose.No IV access, insert saline lock prior to the beginning of sedation, infusion, injection of imaging exam. Discontinue saline lock post exam. IfPt. has a central line or IVAD, may access for administration according to line specific nursing protocol. Once exam is complete flush line and de-access according to line specific nursing protocol in the CT contrast administration guidelines link.Lidocaine (14 sources)Antiarrhythmic, Amide Local AnestheticStart: 80-72-3288Hxxxbhpxs Feb, 20 mgoxyCODONE hydrochloride 5 mg oral tablet (2 sources)Opioid AgonistoxyCODONE IR (ROXICODONE) 5 mg immediate release tablet q 4 HR. 0 ActiveComment on above:q 4 HR.predniSONE 5 mg oral tablet (2 sources)Start: 53-83-5558rtgt 1 tablet by mouth once dailypredniSONE (DELTASONE) 5 mg tablet Take 5 mg by mouth once daily. 0 08/23/2021 Active Comment on above:Take 5 mg by mouth once daily.tamsulosin hydrochloride 0.4 mg oral capsule (2 sources)alpha-Adrenergic Blockertamsulosin (FLOMAX) 0.4 mg q 24 HR. 0 Active Comment on above:q 24 HR.triamcinolone acetonide 40 mg/ml injectable suspension (20 sources)CorticosteroidStart: 68-00-4039Nwepuej-40 Feb, 40 mg Problems Active Problems Problem ClassificationProblemDateDocumented DateEpisodic/ChronicAbdominal pain (3 sources)Right upper quadrant pain; Translations: [Lower abdominal pain, unspecified]EpisodicCalculus of urinary tract (11 sources)History of calculus of kidney; Translations: [Personal history of urinary calculi]Onset: 38-97-1685JmdffapuFfkkxt of prostate (20 sources)Malignant tumor of prostate; Translations: [Malignant neoplasm of prostate]Onset: 329342-06-5507MnlpedgKxysqcw on above:S/p Radical 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 2017Dx: 2014, s/p radical prostatectomy, ADT, EBRT, chemotherapyDx: 2014, s/p radical prostatectomy,Recurrence 2017 ADT, EBRT, chemotherapy,Increasing PSA 2019 ADT,Bone mets ADT, Xtandi ancer of prostate (8 sources)History of malignant neoplasm of prostate; Translations: [Personal history of malignant neoplasm ofprostate]Onset: [id number] Complication of device; implant or graft (2 sources)Atherosclerosis of coronary artery bypass graft(s) without angina pectoris; Translations: [Atherosclerosis of coronary artery bypass graft(s) without angina pectoris]Onset: 39-42-3497NuqjwhkMlxrsoadyr disorders (18 sources)Left bundle branch block; Translations: [Other left bundle branch block]Onset: 16-82-2603NgrmofaDpgwujcr atherosclerosis and other heart disease (20 sources)Coronary arteriosclerosis; Translations: [Atherosclerotic heart disease of [place] coronary artery without angina pectoris]Onset: 10-10-2014 45-56-7914CkrchqnLfkbpxt on above:CABG 2014,Stress lexiscan: nondiagnostic - 03/2025Stress NM: no reversible defect, LVEF 55%, no TID - 03/2025Deficiency and other anemia (1 source)Anemia, unspecified; Translations: [Anemia, unspecified type]Onset: 50-72-4099OlkepzjgMkiadoya mellitus with complications (20 sources)Type 2 diabetes mellitus; Translations: [Type 2 diabetes mellitus with hyperglycemia]Onset: 07-78-3501OkaqdxqGrztqqfc mellitus without complication (19 sources)Type 2 diabetes mellitus without complication; Translations: [Type 2 diabetes mellitus without complications]Onset: 02-93-4452VkzxevwZwrpxshes of lipid metabolism (20 sources)Hyperlipidemia; Translations: [Hypercholesterolemia]Onset: 543962-01-7039WwxewbqMhlgjmikl hypertension (20 sources)Hypertensive disorder; Translations: [Essential hypertension]Onset: 06-01-2023 Resolved: 775814-04-1472GrrmdxgWggejkwynznmi symptoms and ill-defined conditions (17 sources)Microscopic hematuria; Translations: [Nocturia]Onset: 04-14-2023 49-16-0530DjdxkcarBvesx valve disorders (20 sources)Aortic stenosis, non-rheumatic ; Translations: [Nonrheumatic aortic (valve) stenosis]Onset: 96-39-1875XyakrtpWnlzpcp on above:Echo: ROGER 1.13, Velocity 324, 04/2022Echo: ROGER 1.3, Velocity 280, gradient 06/2023Echo: ROGER 1.13, Velocity 324, 04/2022,Echo: ROGER 1.3, Velocity 280, gradient 06/2023,Echo: LVEF 55%, KENYETTA, mildly dilated RV w/ normal function, RVSP 33, ROGER 1.32cm, Velocity 3.30m/s, gradient 43/26 - 03/2025 Hyperplasia of prostate (2 sources)Lower urinary tract symptoms due to benign prostatic hypertrophy; Translations: [Hyperplasia of prostate, unspecified, with urinary obstruction and other lower urinary tract symptoms [LUTS]]Onset: 79-38-7884Mgwjxcq Immunizations and screening for infectious disease (1 source)Vaccination given; Translations: [Encounter for immunization]Episodic Nausea and vomiting (2 sources)NauseaEpisodicNeoplasms of unspecified nature or uncertain behavior (2 sources)Neoplastic disease; Translations: [Neoplasm of unspecified behavior of bone, soft tissue, and skin]09-22-1503WlikimhnXndbqqbxv or stenosis of precerebral arteries (1 source)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; Translations: [Occlusion and stenosis of carotid artery without mention of cerebral infarction]Onset: 71-98-6659StmsagzLjptvkjoxypkwr (20 sources)Osteoarthritis of joint of right shoulder region; Translations: [Primary osteoarthritis, right shoulder]ChronicOther and unspecified benign neoplasm (2 sources)Melanocytic nevus of trunk; Translations: [Melanocytic nevi of trunk] 37-26-2342DvxhbupxKrnkl circulatory disease (2 sources)Cardiovascular symptoms; Translations: [Other specified symptoms and signs involving the circulatory and respiratory systems]Onset: 07-25-2018 EpisodicOther congenital anomalies (1 source)Other congenital malformations of iris; 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]ChronicOther ear and sense organ disorders (3 sources)Hearing loss; Translations: [Unspecified hearing loss, unspecified ear]Onset: 868846-00-5855MbfgmfsKxvzo ear and sense organ disorders (6 sources)Sensorineural hearing loss, bilateral; Translations: [Sensorineural hearing loss, bilateral]Onset: 012890-75-6208MbeckvzGsbac ear and sense organ disorders (1 source)Impacted cerumen, right earEpisodicOther ear and sense organ disorders (1 source)Lesion of skin of right ear; Translations: [Disorder of right external ear, unspecified]87-89-7451XpgjnsfqYtkfd eye disorders (7 sources)Anisocoria; 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]Onset: ChronicOther gastrointestinal disorders (2 sources)Diarrhea; Translations: [Diarrhea, unspecified]78-65-7428Ariqbgoo Other gastrointestinal disorders (1 source)Diarrhea, unspecified; Translations: [Diarrhea]49-97-9354NmgnqbreMixsd inflammatory condition of skin (2 sources)Psoriasis vulgaris; Translations: [Psoriasis vulgaris]02-25-2025 ChronicOther injuries and conditions due to external causes (1 source)History of fall; Translations: [History of falling]EpisodicOther male genital disorders (1 source)Impotence of organic origin; Translations: [Impotence of organic origin]ChronicOther nervous system disorders (20 sources)Chronic pain; Translations: [Other chronic pain]ChronicOther nervous system disorders (2 sources)Other chronic painChronicOther nervous system disorders (14 sources)Carpal tunnel syndrome; Translations: [Carpal tunnel syndrome, right upper limb]ChronicOther nervous system disorders (1 source)Carpal tunnel syndrome, right upper limbChronicOther non-epithelial cancer of skin (2 sources)History of squamous cell carcinoma of skin; Translations: [Personal history of other malignant neoplasm of skin]79-48-5899WmynnvoiYoxuk non- traumatic joint disorders (7 sources)Pain in right shoulder; Translations: [Right shoulder pain]Episodic Other nutritional; endocrine; and metabolic disorders (20 sources)Body mass index 30+ - obesity; Translations: [Obesity, unspecified] Onset: 31-02-5076ZjwniphWoykl nutritional; endocrine; and metabolic disorders (2 sources)Obesity, unspecifiedChronicOther nutritional; endocrine; and metabolic disorders (1 source)Simple obesity ; Translations: [Other obesity due to excess calories] Onset: 12-33-8790HwlsoriShnun nutritional; endocrine; and metabolic disorders (8 sources)Obesity; Translations: [Obesity, unspecified]Onset: 06-01-2023 79-26-9554XkoukvjAafjt nutritional; endocrine; and metabolic disorders (1 source)Obese class II; Translations: [Body mass index 35.0-35.9, adult]Onset: 96-29-0406NnubgkzRjdxl nutritional; endocrine; and metabolic disorders (1 source)Obese class I; Translations: [Body mass index 34.0-34.9, adult]Onset: 82-86-8076QtkjvmiOscdw nutritional; endocrine; and metabolic disorders (14 sources)Obesity caused by energy imbalance; Translations: [Other obesity due to excess calories]ChronicOther nutritional; endocrine; and metabolic disorders (1 source)Other obesity due to excess caloriesChronicOther nutritional; endocrine; and metabolic disorders (1 source)Body mass index (BMI) 32.0-32.9, adultChronicOther screening for suspected conditions (not mental disorders or infectious disease) (17 sources)Raised prostate specific antigen; Translations: [Rising PSA following treatment for malignant neoplasm of prostate]Onset: 87-39-3903Qmoqtafk Other skin disorders (4 sources)Actinic keratosis; Translations: [Actinic keratosis]08-28-2023 EpisodicOther skin disorders (4 sources)Mass of skin of left upper limb; Translations: [Localized swelling, mass and lump, left upper limb]38-33-4399YebgnxwnVrhbr skin disorders (4 sources)Mass of skin of right upper limb; Translations: [Localized swelling, mass and lump, right upper limb]56-79-8775DvvsvkpiWzqkr skin disorders (1 source)Localized swelling, mass and lump, left upper limb; Translations: [Localized superficial swelling, mass, or lump]10-59-3576WaqittneUbpnv skin disorders (2 sources)Seborrheic keratosis; Translations: [Other seborrheic keratosis] 15-41-7762TomxbomjUgtkn skin disorders (2 sources)Lentiginosis; Translations: [Other melanin hyperpigmentation] 28-18-1989OgzxcqpuDapia upper respiratory disease (1 source)Seasonal allergic rhinitis; Translations: [Other seasonal allergic rhinitis]Onset: 82-28-8680SpkxvusSlgpi upper respiratory disease (7 sources)Vasomotor rhinitis; Translations: [Vasomotor rhinitis]Onset: 318586-68-5227MmiviaaJmtml upper respiratory disease (1 source)Vasomotor rhinitisChronicOther upper respiratory disease (1 source)Other specified disorders of nose and nasal sinusesEpisodicOther upper respiratory disease (2 sources)Mass of body region; Translations: [Other specified disorders of nose and nasal sinuses]09-83-2243FxkkokfgHoomtzzogg disorders (not diabetes) (6 sources)Other specified diseases of pancreas; Translations: [Cyst of pancreas]EpisodicComment on above:MRCP: no significant change in 2021, 2022, 4Residual codes; unclassified (20 sources)Obstructive sleep apnea syndrome; Translations: [Obstructive sleep apnea (adult) (pediatric)]Onset: 476520-39-0299JbfhjslBwoqmzhx codes; unclassified (7 sources)Obstructive sleep apnea (adult) (pediatric); Translations: [Obstructive sleep apnea (adult)(pediatric)]ChronicResidual codes; unclassified (6 sources)Sleep apnea; Translations: [Sleep apnea, unspecified]Onset: 483276-84-9552AsmjvacOhqmvuemb malignancies (8 sources)Secondary malignant neoplasm of bone; Translations: [Secondary malignant neoplasm of bone]ChronicSecondary malignancies (3 sources)Secondary malignant neoplasm of bone; Translations: [Secondary malignant neoplasm of bone (HCC)]Onset: 89-57-8198AgfodhiGhqxqhzzvcn; intervertebral disc disorders; other back problems (20 sources)Cervical spondylosis; Translations: [Other spondylosis with radiculopathy, cervical region]Onset: 07-40-8837PnbgbipZdeueeg and strains (7 sources)Strain of hamstring muscle; Translations: [Right hamstring muscle strain]EpisodicUnclassified (1 source)OPENED IN ERRORUnclassified (3 sources)Hearing loss; Translations: [Impaired hearing]Onset: 06-01-2023 06-01-2023 Past or Other Problems Problem ClassificationProblemDateDocumented DateEpisodic/ChronicAcute posthemorrhagic anemia (1 source)Acute posthemorrhagic anemia; Translations: [Acute posthemorrhagic anemia]Onset: 31-38-6394OtmfjhbqHtkhhczk reactions (1 source)Idiopathic urticaria; Translations: [Idiopathic urticaria]Onset: 28-51-7556LlzyiifqBuev; stupor; and brain damage (1 source)Somnolence; Translations: [Somnolence]Onset: 58-39-9156Gsvxmyjb Deficiency and other anemia (1 source)Anemia; Translations: [Anemia, unspecified]Onset: 73-06-7436Aqmkmqzj Diabetes mellitus without complication (1 source)Impaired fasting glycemia; Translations: [Impaired fasting glucose] Onset: 42-39-0001GkqjeuulBwfmmbejoshs injury (1 source)Concussion with no loss of consciousness; Translations: [Concussion without loss of consciousness, subsequent encounter]Onset: 41-31-3857Hlgjkcdx Malaise and fatigue (1 source)Malaise and fatigue; Translations: [Other malaise and fatigue]Onset: 25-25-7143ZummdbzvEhfvscgkzix chest pain (1 source)Chest pain; Translations: [Chest pain, unspecified]Onset: 08-25-2014 EpisodicOther non-traumatic joint disorders (5 sources)Pain in left shoulder; Translations: [PAIN IN LEFT SHOULDER]Onset: 73-68-9315UqkwcvstNiphn nutritional; endocrine; and metabolic disorders (1 source)Morbid obesity; Translations: [Morbid (severe) obesity due to excess calories] Resolved: 98-81-8678IdmbnrkPubebefl codes; unclassified (1 source)Requires influenza virus vaccination; Translations: [Need for prophylactic vaccination and inoculation, Influenza]Onset: 27-28-1308Ffbmdigv Spondylosis; intervertebral disc disorders; other back problems (6 sources)Neck pain; Translations: [Cervicalgia]Onset: 993597-21-8858 Episodic Results Test NameValueInterpretationReference RangeFacilityCNOVSPon 97-57-7627WOMXEY Visit (SP) [facility] PABLO FELIX ([id number]) 1945 M Date Time Provider Department 05/22/25 11:00 AM CHARY SHERMAN During your visit today, we recorded the following information about you: Temperature Pulse Respiration Blood pressure 97.2 degrees 51/minute 16/minute 140/56 Weight Height 92.3 kg 1.676 m Chary Sherman APRN.CNP 05/22/2025 3:33 PM Signed NAME: Folk, [facility] NO.: [id number] DATE OF SERVICE: May 22, 2025 (Naveen) [...] consistent with stage IIIC (pT2b, N0, M0), Alsen 5+4 equal 9. Postop the patient's PSA [...] reported side effects. Next Lupron injection is due in a couple of months with Dr. Scruggs. - Continue Xtandi 160 mg daily. - [...] and is managing symptoms with lactase enzyme supp (more content not included)...NormalC[facility]innati [facility] W Auto Differential panel (Bld)on 69-45-6517Bcxjzfyhr (Bld) [#/Vol] 0.03 10*3/uLNormal<0.11CSt. [facility] on above:Order Comment: Specimen Type: BLOOD SPECIMEN Ordering Facility: [facility] Address: [address] [place], [place] [address]Performed By: #### 2857-1 #### [facility] CLIA [id number] [address] [place] [address] [place] AMERICABasophils/100 WBC (Bld)0.4 %Normal [facility] on above:Order Comment: Specimen Type: BLOOD SPECIMEN Ordering Facility: [facility] Address: [address] [place], [place] [address]Performed By: #### 2857-1 #### [facility] CLIA [id number] [address] [place] [address] [place] AMERICADifferential cell count method Nom (Bld)AutoNormalCSt. Mary[facility] on above:Order Comment: Specimen Type: BLOOD SPECIMEN Ordering Facility: [facility] Address: [address] [place], [place] [address]Performed By: #### 2857-1 #### [facility] CLIA [id number] [address] [place] [address] [place] AMERICAEosinophils (Bld) [#/Vol]0.36 10*3/uLNormal<0.46[facility] on above:Order Comment: Specimen Type: BLOOD SPECIMEN Ordering Facility: [facility] Address: [address] [place], [place] [address]Performed By: #### 2857-1 #### [facility] CLIA [id number] [address] [place] [address] [place] AMERICAEosinophils/100 WBC (Bld)5.2 %Normal [facility] on above:Order Comment: Specimen Type: BLOOD SPECIMEN Ordering Facility: [facility] Address: [address] [place], [place] [address]Performed By: #### 2857-1 #### [facility] CLIA [id number] [address] [place] [address] [place] AMERICAErythrocyte distribution width (RBC) [Ratio]12.6 %Elucza81.5-15.0[facility] on above:Order Comment: Specimen Type: BLOOD SPECIMEN Ordering Facility: [facility] Address: [address] [place], [place] [address]Performed By: #### 2857-1 #### [facility] CLIA [id number] [address] [place] [address] [place] AMERICAHematocrit (Bld) [Volume fraction] 34.8 %Low39.0-51.0[facility] on above:Order Comment: Specimen Type: BLOOD SPECIMEN Ordering Facility: [facility] Address: [address] [place], [place] [address]Performed By: #### 2857-1 #### [facility] CLIA [id number] [address] [place] [address] [place] AMERICAHemoglobin (Bld) [Mass/Vol]11.7 g/dL Low13.0-17.0[facility] on above:Order Comment: Specimen Type: BLOOD SPECIMEN Ordering Facility: [facility] Address: [address] [place], [place] [address]Performed By: #### 2857-1 #### [facility] CLIA [id number] [address] [place] [address] [place] AMERICAImmature granulocytes (Bld) [#/Vol] 0.06 10*3/uLNormal<0.10[facility] on above:Order Comment: Specimen Type: BLOOD SPECIMEN Ordering Facility: [facility] Address: [address] [place], [place] [address]Performed By: #### 2857-1 #### [facility] CLIA [id number] [address] [place] [address] [place] AMERICAImmature granulocytes/100 WBC (Bld) 0.9 %NormalOhio [facility] on above:Order Comment: Specimen Type: BLOOD SPECIMEN Ordering Facility: [facility] Address: [address] [place], [place] [address]Performed By: #### 2857-1 #### [facility] CLIA [id number] [address] [place] [address] [place] AMERICALymphocytes (Bld) [#/Vol]2.01 10*3/uLNormal1.00-4.00[facility] on above:Order Comment: Specimen Type: BLOOD SPECIMEN Ordering Facility: [facility] Address: [address] [place], [place] [address]Performed By: #### 2857-1 #### [facility] CLIA [id number] [address] [place] [address] [place] AMERICALymphocytes/100 WBC (Bld)29.0 % NormalOhio [facility] on above:Order Comment: Specimen Type: BLOOD SPECIMEN Ordering Facility: [facility] Address: [address] [place], [place] [address]Performed By: #### 2857-1 #### [facility] CLIA [id number] [address] [place] [address] (RBC) [Entitic mass]32.1 pg Mfuczs95.0-34.0[facility] on above:Order Comment: Specimen Type: BLOOD SPECIMEN Ordering Facility: [facility] Address: [address] [place], [place] [address]Performed By: #### 2857-1 #### [facility] CLIA [id number] [address] [place] [address] (RBC) [Mass/Vol]33.6 g/dLNormal 30.5-36.0[facility] on above:Order Comment: Specimen Type: BLOOD SPECIMEN Ordering Facility: [facility] Address: [address] [place], [place] [address]Performed By: #### 2857-1 #### [facility] CLIA [id number] [address] [place] [address] [place] AMERICAMCV (RBC) [Entitic vol]95.6 fLNormal 80.0-100.0[facility] on above:Order Comment: Specimen Type: BLOOD SPECIMEN Ordering Facility: [facility] Address: [address] [place], [place] [address]Performed By: #### 2857-1 #### [facility] CLIA [id number] [address] [place] [address] [place] AMERICAMonocytes (Bld) [#/Vol]0.60 10*3/uL Normal<0.87[facility] on above:Order Comment: Specimen Type: BLOOD SPECIMEN Ordering Facility: [facility] Address: [address] [place], [place] [address]Performed By: #### 2857-1 #### [facility] CLIA [id number] [address] [place] [address] [place] AMERICAMonocytes/100 WBC (Bld)8.6 %Normal [facility] on above:Order Comment: Specimen Type: BLOOD SPECIMEN Ordering Facility: [facility] Address: [address] [place], [place] [address]Performed By: #### 2857-1 #### [facility] CLIA [id number] [address] [place] [address] [place] AMERICANeutrophils (Bld) [#/Vol]3.88 10*3/uLNormal1.45-7.50[facility] on above:Order Comment: Specimen Type: BLOOD SPECIMEN Ordering Facility: [facility] Address: [address] [place], [place] [address]Performed By: #### 2857-1 #### [facility] CLIA [id number] [address] [place] [address] [place] AMERICANeutrophils/100 WBC (Bld)55.9 % NormalOhio [facility] University [facility] on above:Order Comment: Specimen Type: BLOOD SPECIMEN Ordering Facility: [facility] Address: [address] [place], [place] [address]Performed By: #### 2857-1 #### [facility] CLIA [id number] [address] [place] [address] [place] AMERICANucleated RBC (Bld) [#/Vol]10*3/uL Normal<0.01[facility] on above:Order Comment: Specimen Type: BLOOD SPECIMEN Ordering Facility: [facility] Address: [address] [place], [place] [address]Performed By: #### 2857-1 #### [facility] CLIA [id number] [address] [place] [address] [place] AMERICANucleated RBC/100 WBC (Bld) [Ratio] 0.0 /100 WBCNormalCSt. [facility] on above:Order Comment: Specimen Type: BLOOD SPECIMEN Ordering Facility: [facility] Address: [address] [place], [place] [address]Performed By: #### 2857-1 #### [facility] CLIA [id number] [address] [place] [address] [place] AMERICAPlatelet mean volume (Bld) [Entitic vol]10.4 fLNormal9.0-12.7CSt. [facility] on above:Order Comment: Specimen Type: BLOOD SPECIMEN Ordering Facility: [facility] Address: [address] [place], [place] [address]Performed By: #### 2857-1 #### [facility] CLIA [id number] [address] [place] [address] [place] AMERICAPlatelets (Bld) [#/Vol]206 10*3/uL Bscvox348-121UvlnrqrrvOhio State University [facility] on above:Order Comment: Specimen Type: BLOOD SPECIMEN Ordering Facility: [facility] Address: [address] [place], [place] [address]Performed By: #### 2857-1 #### [facility] CLIA [id number] [address] [place] [address] STATES OF AMERICARBC (Bld) [#/Vol]3.64 10*6/uLLow 4.20-6.00[facility] on above:Order Comment: Specimen Type: BLOOD SPECIMEN Ordering Facility: [facility] Address: [address] [place], [place] [address]Performed By: #### 2857-1 #### [facility] CLIA [id number] [address] [place] [address] STATES AMERICAWBC (Bld) [#/Vol]6.94 10*3/uLNormal 3.70-11.00[facility] on above:Order Comment: Specimen Type: BLOOD SPECIMEN Ordering Facility: [facility] Address: [address] [place], [place] [address]Performed By: #### 2857-1 #### [facility] CLIA [id number] [address] [place] [address] AMERICAComprehensive metabolic 2000 panelon 05-62-8278Iajqrjf [Mass/Vol]4.2 g/dLNormal3.9-4.9C[facility] Comment on above:Order Comment: Specimen Type: BLOOD SPECIMEN Ordering Facility: [facility] Address: [address] [place], [place] [address]Performed By: #### 05528-7 #### [facility] CLIA [id number] [address] [place] [address] 26228PBZ [Catalytic activity/Vol]83 U/LHorfod97-297XltwigdwjOhio State University [facility] on above:Order Comment: Specimen Type: BLOOD SPECIMEN Ordering Facility: [facility] Address: [address] [place], [place] [address]Performed By: #### 03086-8 #### [facility] CLIA [id number] [address] [place], [place] [address]EHZ [Catalytic activity/Vol]20 U/LUhjnhd32-05FjvlygrblOhio State University [facility] on above:Order Comment: Specimen Type: BLOOD SPECIMEN Ordering Facility: [facility] Address: [address] [place], [place] [address]Performed By: #### 43166-4 #### [facility] CLIA [id number] [address] [place], [place] [address]Itudm gap [Moles/Vol]12 mmol/LNormal8-15[facility] on above:Order Comment: Specimen Type: BLOOD SPECIMEN Ordering Facility: [facility] Address: [address] [place], [place] [address]Performed By: #### 98318-1 #### [facility] CLIA [id number] [address] [place], [place] [address]GRT [Catalytic activity/Vol]19 U/MWjzass06-63CjkjzbgesOhio State University [facility] on above:Order Comment: Specimen Type: BLOOD SPECIMEN Ordering Facility: [facility] Address: [address] [place], [place] [address]Performed By: #### 92439-0 #### [facility] CLIA [id number] [address] [place], [place] [address]Unjrgnzip [Mass/Vol]0.8 mg/dLNormal0.2-1.3CSt. [facility] on above:Order Comment: Specimen Type: BLOOD SPECIMEN Ordering Facility: [facility] Address: [address] [place], [place] [address]Performed By: #### 27063-2 #### [facility] CLIA [id number] [address] [place], [place] [address]Rstyaem [Mass/Vol]10.0 mg/dLNormal8.5-10.2CSt. [facility] on above:Order Comment: Specimen Type: BLOOD SPECIMEN Ordering Facility: [facility] Address: [address] [place], [place] [address]Performed By: #### 13981-0 #### [facility] CLIA [id number] [address] [place], [place] [address]Zojbqvsl [Moles/Vol]103 mmol/OWwysrh12-488JjsxfumsuOhio State University [facility] on above:Order Comment: Specimen Type: BLOOD SPECIMEN Ordering Facility: [facility] Address: [address] [place] [address]Irmbqmiuw By: #### 74188-4 #### [facility] CLIA [id number] [address] [place], [place] [address]VR7 [Moles/Vol]27 mmol/OVaqkpp69-77ZqstrmqixFayette County Memorial Hospital Comment on above:Order Comment: Specimen Type: BLOOD SPECIMEN Ordering Facility: [facility] Address: [address] [place], [place] [address]Performed By: #### 04743-1 #### [facility] CLIA [id number] [address] [place] [address]Yqxupeyqfd [Mass/Vol]0.73 mg/dLNormal0.73-1.22[facility] on above:Order Comment: Specimen Type: BLOOD SPECIMEN Ordering Facility: [facility] Address: [address] [place], [place] [address]Performed By: #### 20706-3 #### [facility] CLIA [id number] [address] [place] [address] 99159yNLYxe SerPlBld CKD-EPI 748288 mL/min/1.73m???Normal>=60 [facility] on above:Order Comment: Specimen Type: BLOOD SPECIMEN Ordering Facility: [facility] Address: [address] [place] [address]Nunlek Comment: Estimated Glomerular Filtration Rate (eGFR) is calculated using the 2020 CKD-EPI cre atinine equation. This equation utilizes serum creatinine, sex, and age as parameters. The creatinine assay has traceable calibration to isotope dilution- mass spectrometry. Refer to KDIGO guidelines for clinical interpretation. In patients with unstable renal function, e.g. those with acute kidney injury, the eGFR may not accurately reflect actual GFR.Performed By: #### 58615-4 #### [facility] CLIA [id number] [address] [place], [place] [address]Iweqncd [Mass/Vol]118 mg/fBSbut86-51BfounfnagFayette County Memorial Hospital Comment on above:Order Comment: Specimen Type: BLOOD SPECIMEN Ordering Facility: [facility] Address: [address] [place], [place] [address]Result Comment: The [place] [employer] (ADA) provides guidance for cutoff [...] Standards of Medical Care in Diabetes 2016, [place] [employer]. Diabetes Care. 2016.39(Suppl 1).Performed By: #### 66345-6 #### [facility] CLIA [id number] [address] [place], [place] [address]Aekcvryfb [Moles/Vol]4.7 mmol/LNormal3.7-5.1CSt. Rita's HospitalComment on above:Order Comment: Specimen Type: BLOOD SPECIMEN Ordering Facility: [facility] Address: [address] [place] [address]Vtywlzxfx By: #### 17924-3 #### [facility] CLIA [id number] [address] [place], [place] [address]Thmhher [Mass/Vol]6.5 g/dLNormal6.3-8.0[facility] on above:Order Comment: Specimen Type: BLOOD SPECIMEN Ordering Facility: [facility] Address: [address] [place], [place] [address]Performed By: #### 48414-7 #### [facility] CLIA [id number] [address] [place], [place] [address]Rcipsh [Moles/Vol]142 mmol/GNmouoc313-259ZuowbuysmOhio State University [facility] on above:Order Comment: Specimen Type: BLOOD SPECIMEN Ordering Facility: [facility] Address: [address] [place], [place] [address]Performed By: #### 24776-0 #### [facility] CLIA [id number] [address] [place] [address]Kajp nitrogen [Mass/Vol]11 mg/dLNormal9-24[facility] on above:Order Comment: Specimen Type: BLOOD SPECIMEN Ordering Facility: [facility] Address: [address] [place], [place] [address]Performed By: #### 35694-4 #### [facility] CLIA [id number] [address] [place] [address]YZV SerPl-aCncon 97-67-2605Fhcvxuqrkcbjvq (EPO) Qn15.5 mIU/mL Normal2.6-18.5CSt. [facility] on above:Order Comment: Specimen Type: BLOOD SPECIMEN Ordering Facility: [facility] Address: [address] [place], [place] [address]Performed By: #### 2857-1 #### [facility] CLIA [id number] [address] [place], [place] [address]Ferritin SerPl-mCncon 05-15-2025 Ferritin [Mass/Vol]92.9 ng/mMWpcxcn88.3-565.7CSt. [facility] on above:Order Comment: Specimen Type: BLOOD SPECIMEN Ordering Facility: [facility] Address: [address] [place], [place] [address]Performed By: #### 29000-3 #### [facility] CLIA [id number] [address] [place] [address]Yybkbx SerPl-mCncon 71-67-3602Ejrpch [Mass/Vol]ng/mLNormal>4.7 [facility] on above:Order Comment: Specimen Type: BLOOD SPECIMEN Ordering Facility: [facility] Address: [address] [place], [place] [address]Result Comment: A result of > 20 ng/mL is not necessarily indicative of a pathologic or treatable condition: it reflects a limitation of the test methodology. Assay reference range: 4.8 to 24.2 ng/mL. Suitable for detection of folate deficiency. Reference: Folate III (Folate III) [package insert V 1.0 Tajik]. [employer], [place], [place]: May 2015.Performed By: #### 40149-9 #### [facility] CLIA [id number] [address] [place] [address]Ivbf and Iron binding capacity panelon 09-50-3180Oefq [Mass/Vol]74 ug/hOYxwiiw36-441BzchxcshwOhio State University [facility] on above:Order Comment: Specimen Type: BLOOD SPECIMEN Ordering Facility: [facility] Address: [address] [place], [place] [address]Performed By: #### 2857-1 #### [facility] CLIA [id number] [address] [place] [address] [place] OF AMERICAIron binding capacity [Mass/Vol]416 ug/nZXakl140-203PampxhphkOhio [facility] on above:Order Comment: Specimen Type: BLOOD SPECIMEN Ordering Facility: [facility] Address: [address] [place], [place] [address]Performed By: #### 2857-1 #### [facility] CLIA [id number] [address] [place] [address] [place] AMERICAIron/TIBC [Molar ratio]17.8 %Normal 15.0-57.0[facility] on above:Order Comment: Specimen Type: BLOOD SPECIMEN Ordering Facility: [facility] Address: [address] [place], [place] [address]Performed By: #### 2857-1 #### [facility] CLIA [id number] [address] [place] [address] [place] AMERICAPSA SerPl-mCncon 27-11-8000Iqpfvfgo specific Ag [Mass/Vol]0.39 ng/mLNormal<2.60[facility] on above:Order Comment: Specimen Type: BLOOD SPECIMEN Ordering Facility: [facility] Address: [address] [place], [place] [address]Result Comment: Total PSA test methodology used is the Electrochemiluminescence Immunoassay by [employer]. Total PSA values by differing methodologies cannot be interchanged. Performed By: #### 2857-1 #### [facility] CLIA [id number] [address] [place], [place] [address]Vit B12 [facility] 05-15-2025 Cobalamin (Vitamin B12) [Mass/Vol]440 pg/hGMlctkx384-8631Kydsqkbfz Clinic [facility]Comasc[facility] on above:Order Comment: Specimen Type: BLOOD SPECIMEN Ordering Facility: [facility] Address: [address] [place], [place] [address]Performed By: #### 53653-8 #### [facility] CLIA [id number] [address] [place] [address]Vparsy Onlyon 95-84-0310Vnsplq [id number] Pablo Felix 1945 M Date Provider Department [place] 04/04/2025 [id number], HISTORICAL CARD [facility] Family History Problem Relation Age of Onset Coronary artery disease Father Family Status - Relation Status Age at FatherNormalUniversity of [facility] FallsAmbulatory Visit Summaryon 17-27-6971Iswcwxhori Visit SummaryAmbulatory Visit Summary PABLO FELIX :1945 Visit Date:03/31/2025 [...] enzalutamide (Xtandi 80 mg oral tablet) glimepiride hydrochlorothiazide-lisinopril (hydrochlorothiazide-lisinopril 12.5 mg-20 mg Tab) ipratropium nasal (ipratropium Nasal 0.06% [place]) metformin (metformin 1000 mg oral tablet) metoprolol [...] AM EDT With: Where: [facility] [address] [place] [address]- Monday2025 11:15 AM EDT With: Anthony SCRUGGS MD Where: [facility] [address] [place] [address]- You Need to Schedule the Following Appointments Follow Up with Anthony SCRUGGS MD, URL When: Comments: 6 mos w/ PSA, Lupron Where: [address] [place] [address] Medications What How Much When Instructions Unchanged [...] prescribing physician if questions or concerns Unchanged hydrochlorothiazide-lisinopril (hydrochlorothiazide-lisinopril 12.5 mg-20 mg Tab) 1 Tablets By Mouth Every day Contact prescribing physician if questions or concerns Unchanged ipratropium nasal (ipratropium Nasal 0.06% [place]) Contact prescribing physician if questions or concerns Unchanged metformin (metformin 1000 mg oral tablet) By Mouth 2 times a day Contact prescribing physician if questions or concerns Unchanged metoprolol (metoprolol 25 mg ER Tab) 1 Tablets By Mouth 2 times a day Contact prescribingphysician if questions or concerns Medications and Immunizations [...] ??? 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 Restarted Lupron [...] at this time. IPSS 3, no bother withurination. -F/u in 6 mos w/ PSA, Lupron [...] Contact Information KAEL JAMES, Anthony Lee, URL [address] [place] [address] [place] [address] Additional Instructions: 6 mos w/ PSA, Lupron Patient Education Hormone Suppression Therapy for Prostate Cancer IJeanine, personally scribed for Dr. Scruggs on 03/31/2025 10:34:15. . Documentation recorded by the scribeJeanine, accurately [...] atorvastatin 40 mg Tab glimepiride, Oral, Daily hydrochlorothiazide-lisinopril 12.5 mg-20 mg Tab, 1 tab(s), Oral, Daily ipratropium Nasal 0.06% [place] metformin 1000 mg oral tablet, Oral, BID [...] Household tobacco concerns: No., (more content not included)...[facility] CenterComment on above:Result Comment: Electronically Signed By: Anthony SCRUGGS MD\.br\Date and Time Signed: 03/31/25 10:40 EDT\.br\Electronically Co-Signed By: Jeanine Crandall\.br\Date and Time Co-Signed: 03/31/25 10:35 EDTNo Panel InformationOrdered By: Outside Provider on 03-24-2025 Prostate Specific Antigen Screen0.42 ng/mL<=4.00[facility] HospitalBasophils Auto (Bld) [#/Vol]Ordered By: Anirudh Quiroz on 03-20-2025 Basophils (Bld) [#/Vol]0.0 10 3/uL0.0-0.1FMetroHealth Main Campus Medical Center Basophils/100 WBC Auto (Bld)Ordered By: Anirudh Quiroz on 03-20-2025 Basophils/100 WBC (Bld)0.5 %0.2-2.0[facility] HospitalCholesterol in LDL Calc [Mass/Vol]Ordered By: Anirudh Quiroz on 84-76-5085Tkfifwqkjjk in LDL [Mass/Vol]66.6 mg/dLOhiohealth Van Wert HospitalComment on above:<100 mg/dl SSDAITI409-391 mg/dl NEAR OR ABOVE WVIZOCL127-977 mg/dl BORDERLINE YRMN982-815 mg/dl HIGH>190 mg/dl VERY HIGHCholesterol in VLDL Calc [Mass/Vol] Ordered By: Anirudh Quiroz on 13-68-2018Ochmidzjspn in VLDL [Mass/Vol]23.4 mg/dL [facility] HospitalEosinophils/100 WBC Auto (Bld)Ordered By: Anirudh Quiroz on 53-75-9579Puqpzlqnihj/100 WBC (Bld)6.6 %0.9-7.0[facility] HospitalErythrocyte distribution width Auto (RBC) [Ratio]Ordered By: Anirudh Quiroz on 70-83-6030Skepdawypxa distribution width (RBC) [Ratio]12.6 %11.0-15.0[facility] HospitalGlobulin Calc (S) [Mass/Vol]Ordered By: Anirudh Quiroz on 72-02-4124Mxnnkbxd (S) [Mass/Vol]3.3 g/dLOhiohealth Van Wert HospitalGlomerular filtration rate (GFR) estimation in non- AmericanOrdered By: Anirudh Quiroz on 52-07-3714QFQ/1.73 sq M.predicted among non-blacks MDRD (S/P/Bld) [Vol rate/Area]mL/min/{1.73_m2}>=60 mL/min/1.73m 2FMetroHealth Main Campus Medical CenterHematocrit Auto (Bld) [Volume fraction]Ordered By: Anirudh Quiroz on 23-45-7663Vnsrcgzuzg (Bld) [Volume fraction]33.8 %Low 42.0-54.0[facility] HospitalHemoglobin [Mass/volume] in Blood Ordered By: Anirudh Quiroz on 73-01-8165Idvnvbnzin (Bld) [Mass/Vol]11.4 g/dLLow 14.0-18.0[facility] HospitalLaboratory - Chemistry and Chemistry - challengeOrdered By: Anirudh Quiroz on 87-30-5872Lxpxtvn [Mass/Vol]3.3 g/dLLow 3.4-5.0[facility] HospitalALP [Catalytic activity/Vol]71 U/L46-116 [facility] HospitalALT [Catalytic activity/Vol]28 U/L16-63 [facility] HospitalAST [Catalytic activity/Vol]17 U/L15-37 [facility] HospitalBilirubin [Mass/Vol]0.8 mg/dL0.2-1.0[facility] HospitalCalcium [Mass/Vol]8.9 mg/dL8.5-10.1FMetroHealth Main Campus Medical CenterChloride [Moles/Vol]105 mmol/O44-826PyoebgijqOhiohealth Van Wert HospitalCholesterol [Mass/Vol]133 mg/dL<=200[facility] Cholesterol in HDL [Mass/Vol]43 mg/lQ73-61GmzqyizexOhiohealth Van Wert Hospital Comment on above:> or =60 mg/dl - LOW CARDIOVASCULAR RISK<40 mg/dl - HIGH CARDIOVASCULAR RISKCO2 [Moles/Vol]26.6 mmol/L21.0-32.0[facility] HospitalCreatinine [Mass/Vol]0.81 mg/dL0.70-1.30[facility] GFR/1.73 sq M.predicted MDRD (S/P/Bld) [Vol rate/Area]mL/min/{1.73_m2}>=60 mL/min/1.73m 2FMetroHealth Main Campus Medical CenterGlucose [Mass/Vol]116 mg/dLHigh 74-106Ohio[facility] HospitalPotassium [Moles/Vol]5.2 mmol/LHigh 3.5-5.1FMetroHealth Main Campus Medical CenterProtein [Mass/Vol]6.6 g/dL6.4-8.[address] [facility] Medical Centerodium [Moles/Vol]140 mmol/J944-769JbkjbmlzqOhiohealth Van Wert HospitalTriglyceride [Mass/Vol]117 mg/dL<=150Ohio[facility] HospitalTSH Qn1.719 m[IU]/L0.358-3.740[facility] Urea nitrogen [Mass/Vol]15.0 mg/dL7.0-18.0[facility] HospitalUrea nitrogen/Creatinine [Mass ratio]18.5 mg/mgOhiohealth Van Wert Hospital Laboratory - Hematology and Cell countsOrdered By: Anirudh Quiroz on 03-20-2025 Immature granulocytes/100 WBC (Bld)0.7 %High0.0-0.5FMetroHealth Main Campus Medical CenterLeukocytes [#/volume] corrected for nucleated erythrocytes in Blood by Automated counOrdered By: Anirudh Quiroz on 30-78-6268YIF corrected for nucl RBC Auto (Bld) [#/Vol]5.6 10 3/uL4.0-11.0[facility] Lymphocytes Auto (Bld) [#/Vol]Ordered By: Anirudh Quiroz on 03-20-2025 Lymphocytes (Bld) [#/Vol]1.5 10 3/uL1.2-3.8[facility] Lymphocytes/100 WBC Auto (Bld)Ordered By: Anirudh Quiroz on 03-20-2025 Lymphocytes/100 WBC (Bld)26.7 %20.5-60.0[facility] Campus Medical CenterH Auto (RBC) [Entitic mass]Ordered By: Anirudh Quiroz on 59-36-6324WAM (RBC) [Entitic mass]32.2 pg25.9-34.0[facility] HospitalMCHC Auto (RBC) [Mass/Vol]Ordered By: Anirudh Quiroz on 31-51-4619IHGH (RBC) [Mass/Vol]33.7 g/dL 29.9-35.2FMetroHealth Main Campus Medical CenterMCV Auto (RBC) [Entitic vol]Ordered By: Anirudh Quiroz on 06-86-0673FKX (RBC) [Entitic vol]95.5 hGKuhg68.0-94.0 [facility] HospitalMonocytes Auto (Bld) [#/Vol]Ordered By: Anirudh Quiroz on 01-71-1546Ukjdtwmnl (Bld) [#/Vol]0.5 10 3/uL0.3-0.8[facility] HospitalMonocytes/100 WBC Auto (Bld)Ordered By: Anirudh Quiroz on 77-14-9429Mqufvhufj/100 WBC (Bld)9.6 %1.7-12.0[facility] Neutrophils Auto (Bld) [#/Vol]Ordered By: Anirudh Quiroz on 03-20-2025 Neutrophils (Bld) [#/Vol]3.1 10 3/uL1.4-6.5FMetroHealth Main Campus Medical Center Neutrophils/100 WBC Auto (Bld)Ordered By: Anirudh Quiroz on 03-20-2025 Neutrophils/100 WBC (Bld)55.9 %43.0-75.0[facility] HospitalNo Panel InformationOrdered By: Anirudh Quiroz on 48-80-6927Egudctaiait # (Auto)0.4 10 3/uL0.0-0.7FMetroHealth Main Campus Medical CenterImmature Granulocyte # (Auto) 0.04 10 3/uLHigh0.00-0.03[facility] HospitalOffice Visiton 04-31-9252Pzhpml-up [id number] Pablo Felix 1945 M Date Provider Department Center 03/20/2025 Lakia-ANIRUDH QUIROZ CARD [facility] Family History Problem Relation Age of Onset Coronary artery disease Father Family Status - Relation Status Age at Father Level of Service:60238 MD OFFICE/OUTPATIENT ESTABLISHED MOD MDM 30 MIN Reason for Visit and Comments: Coronary Artery Disease [187] - Denies chest pain and SOB. No recent testing. Valve Disorder [3372] - Denies lightheadedness and palpitations. Hypertension [312612] - Had labs in January 2025. Hyperlipidemia [182] - [facility].NormalUnSycamore Medical CenterPlatelet mean volume Auto (Bld) [Entitic vol]Ordered By: Anirudh Quiroz on 32-02-7474Vdwbsvai mean volume (Bld) [Entitic vol]10.4 fL9.5-13.5FMetroHealth Main Campus Medical CenterPlatelets Auto (Bld) [#/Vol]Ordered By: Anirudh Quiroz on 46-71-9670Sodhxxthq (Bld) [#/Vol]185 10 3/gF009-973RepyeyoqiOhiohealth Van Wert HospitalRBC Auto (Bld) [#/Vol] Ordered By: Anirudh Quiroz on 37-73-1408APW (Bld) [#/Vol]3.54 10 6/uLLow 4.70-6.10[facility] John Medical Centererum or plasma albumin/globulin mass ratioOrdered By: Anirudh Quiroz on 22-24-2770Sqooykg/Globulin [Mass ratio]1.0 {ratio}[facility] John Medical Centererum or plasma anion gap determination Ordered By: Anirudh Quiroz on 90-28-7484Ydpup gap [Moles/Vol]13.6 mmol/L [facility] John Medical Centererum or plasma total cholesterol/high density lipoprotein (HDL) cholesterol mass ratOrdered By: Anirudh Quiroz on 03-20-2025 Cholesterol.total/Cholesterol in HDL [Mass ratio]3.1 {ratio}[facility] HospitalComment on above:3.3 - 4.4 LOW RISK4.4 - 7.1 AVERAGE RISK7.1 - 11.0 MODERATE RISK>11.0 HIGH RISKNo Panel Informationon 54-55-4167ETNF HealthcareCNOVSPon 13-53-5512ONHTFJBvtho (SP) Office ([place]) PABLO FELIX ([id number]) 1945 M Date Time Provider Department 02/20/25 10:20 AM SAUL TRACEY During your visit today, we recorded the following information about you: Temperature Pulse Respiration Blood pressure 97.6 degrees 60/minute 16/minute 130/84 Weight 91.4 kg Saul Tracey MD 02/20/2025 10:48 AM Signed NAME: Pablo Felix CLINIC NO.: [id number] DATE OF SERVICE: February 20, 2025 (Denice) [...] function is normal. Ane (more content not included)...NormalFayette County Memorial HospitalBasophils Auto (Bld) [#/Vol]Ordered By: Marco A Esqueda on 28-66-9224Txjlfriio (Bld) [#/Vol]0.03 10*3/uL<0.11[facility] HospitalBasophils/100 WBC Auto (Bld)Ordered By: Marco A Esqueda on 06-97-1299Cvwhbcrie/100 WBC (Bld)0.4 %[facility] HospitalBlood manual differential comment interpretation narrativeOrdered By: Marco A Esqueda on 89-21-9876Cuttqx differential comment [place] (Bld) [Interp]AutoOhiohealth Van Wert HospitalCBC W Auto Differential panel (Bld)on 31-10-6979Jrwhphylg (Bld) [#/Vol]0.03 10*3/uLNormal<0.11CSt. [facility] on above:Order Comment: Specimen Type: BLOOD SPECIMEN Ordering Facility: [facility] Address: [address] [place], [place] [address]Performed By: #### 2857-1 #### [facility] CLIA [id number] [address] [place] [address] [place] AMERICABasophils/100 WBC (Bld)0.4 %Normal [facility] on above:Order Comment: Specimen Type: BLOOD SPECIMEN Ordering Facility: [facility] Address: [address] [place], [place] [address]Performed By: #### 2857-1 #### [facility] CLIA [id number] [address] [place] [address] [place] AMERICADifferential cell count method Nom (Bld)AutoNormalCSt. Mary's Medical Center[facility] on above:Order Comment: Specimen Type: BLOOD SPECIMEN Ordering Facility: [facility] Address: [address] [place], [place] [address]Performed By: #### 2857-1 #### [facility] CLIA [id number] [address] [place] [address] [place] AMERICAEosinophils (Bld) [#/Vol]0.53 10*3/uLHigh<0.46[facility] on above:Order Comment: Specimen Type: BLOOD SPECIMEN Ordering Facility: [facility] Address: [address] [place], [place] [address]Performed By: #### 2857-1 #### [facility] CLIA [id number] [address] [place] [address] [place] AMERICAEosinophils/100 WBC (Bld)7.5 %Normal [facility] on above:Order Comment: Specimen Type: BLOOD SPECIMEN Ordering Facility: [facility] Address: [address] [place], [place] [address]Performed By: #### 2857-1 #### [facility] CLIA [id number] [address] [place] [address] [place] AMERICAErythrocyte distribution width (RBC) [Ratio]12.7 %Fvkosl98.5-15.0[facility] on above:Order Comment: Specimen Type: BLOOD SPECIMEN Ordering Facility: [facility] Address: [address] [place], [place] [address]Performed By: #### 2857-1 #### [facility] CLIA [id number] [address] [place] [address] [place] OF AMERICAHematocrit (Bld) [Volume fraction] 35.3 %Low39.0-51.0[facility] on above:Order Comment: Specimen Type: BLOOD SPECIMEN Ordering Facility: [facility] Address: [address] [place], [place] [address]Performed By: #### 2857-1 #### [facility] CLIA [id number] [address] [place] [address] [place] AMERICAHemoglobin (Bld) [Mass/Vol]12.0 g/dL Low13.0-17.0[facility] on above:Order Comment: Specimen Type: BLOOD SPECIMEN Ordering Facility: [facility] Address: [address] [place], [place] [address]Performed By: #### 2857-1 #### [facility] CLIA [id number] [address] [place] [address] [place] AMERICAImmature granulocytes (Bld) [#/Vol] 0.06 10*3/uLNormal<0.10[facility] on above:Order Comment: Specimen Type: BLOOD SPECIMEN Ordering Facility: [facility] Address: [address] [place], [place] [address]Performed By: #### 2857-1 #### [facility] CLIA [id number] [address] [place] [address] [place] AMERICAImmature granulocytes/100 WBC (Bld) 0.8 %NormalOhio State University [facility] Center on above:Order Comment: Specimen Type: BLOOD SPECIMEN Ordering Facility: [facility] Address: [address] [place], [place] [address]Performed By: #### 2857-1 #### [facility] CLIA [id number] [address] [place] [address] [place] AMERICALymphocytes (Bld) [#/Vol]2.09 10*3/uLNormal1.00-4.00[facility] on above:Order Comment: Specimen Type: BLOOD SPECIMEN Ordering Facility: [facility] Address: [address] [place], [place] [address]Performed By: #### 2857-1 #### [facility] CLIA [id number] [address] [place] [address] [place] AMERICALymphocytes/100 WBC (Bld)29.5 % NormalOhio State University [facility] Center on above:Order Comment: Specimen Type: BLOOD SPECIMEN Ordering Facility: [facility] Address: [address] [place], [place] [address]Performed By: #### 2857-1 #### [facility] CLIA [id number] [address] [place] [address] [place] AMERICAMCH (RBC) [Entitic mass]32.5 pg Jhylit28.0-34.0[facility] on above:Order Comment: Specimen Type: BLOOD SPECIMEN Ordering Facility: [facility] Address: [address] [place], [place] [address]Performed By: #### 2857-1 #### [facility] CLIA [id number] [address] [place] [address] [facility] CAMPUSMCHC (RBC) [Mass/Vol]34.0 g/dLNormal 30.5-36.0[facility] on above:Order Comment: Specimen Type: BLOOD SPECIMEN Ordering Facility: [facility] Address: [address] [place], [place] [address]Performed By: #### 2857-1 #### [facility] CLIA [id number] [address] [place], [place] [address]V (RBC) [Entitic vol]95.7 fLNormal 80.0-100.0[facility] on above:Order Comment: Specimen Type: BLOOD SPECIMEN Ordering Facility: [facility] Address: [address] [place], [place] [address]Performed By: #### 2857-1 #### [facility] CLIA [id number] [address] [place] [address] [place] AMERICAMonocytes (Bld) [#/Vol]0.68 10*3/uL Normal<0.87[facility] on above:Order Comment: Specimen Type: BLOOD SPECIMEN Ordering Facility: [facility] Address: [address] [place], [place] [address]Performed By: #### 2857-1 #### [facility] CLIA [id number] [address] [place] [address] [place]AMonocytes/100 WBC (Bld)9.6 %Normal [facility] on above:Order Comment: Specimen Type: BLOOD SPECIMEN Ordering Facility: [facility] Address: [address] [place], [place] [address]Performed By: #### 2857-1 #### [facility] CLIA [id number] [address] [place] [address] [place]utrophils (Bld[place] [#/Vol]3.70 10*3/uLNormal1.45-7.50[facility] on above:Order Comment: Specimen Type: BLOOD SPECIMEN Ordering Facility: [facility] Address: [address] [place], [place] [address]Performed By: #### 2857-1 #### [facility] CLIA [id number] [address] [place] [address] [place]eutrophils/100 WBC (Bld)52.2 % [facility] on above:Order Comment: Specimen Type: BLOOD SPECIMEN Ordering Facility: [facility] Address: [address] [place], [place] [address]Performed By: #### 2857-1 #### [facility] CLIA [id number] [address] [place] [address] [place] OF AMERICANucleated RBC (Bld) [#/Vol]10*3/uL Normal<0.01[facility] on above:Order Comment: Specimen Type: BLOOD SPECIMEN Ordering Facility: [facility] Address: [address] [place], [place] [address]Performed By: #### 2857-1 #### [facility] CLIA [id number] [address] [place] [address] [place] AMERICANucleated RBC/100 WBC (Bld) [Ratio] 0.0 /100 WBCNormalCSt. [facility] on above:Order Comment: Specimen Type: BLOOD SPECIMEN Ordering Facility: [facility] Address: [address] [place], [place] [address]Performed By: #### 2857-1 #### [facility] CLIA [id number] [address] [place] [address] [place] AMERICAPlatelet mean volume (Bld) [Entitic vol]10.1 fLNormal9.0-12.7CSt. [facility] on above:Order Comment: Specimen Type: BLOOD SPECIMEN Ordering Facility: [facility] Address: [address] [place], [place] [address]Performed By: #### 2857-1 #### [facility] CLIA [id number] [address] [place] [address] [place] AMERICAPlatelets (Bld) [#/Vol]204 10*3/uL Jvspfq439-651YlsqqnhggOhio State University [facility] on above:Order Comment: Specimen Type: BLOOD SPECIMEN Ordering Facility: [facility] Address: [address] [place], [place] [address]Performed By: #### 2857-1 #### [facility] CLIA [id number] [address] [place] [address] [place] AMERICARBC (Bld) [#/Vol]3.69 10*6/uLLow 4.20-6.00[facility] on above:Order Comment: Specimen Type: BLOOD SPECIMEN Ordering Facility: [facility] Address: [address] [place], [place] [address]Performed By: #### 2857-1 #### [facility] CLIA [id number] [address] [place] [address] STATES OF AMERICAWBC (Bld) [#/Vol]7.09 10*3/uLNormal 3.70-11.00[facility] on above:Order Comment: Specimen Type: BLOOD SPECIMEN Ordering Facility: [facility] Address: [address] [place], [place] [address]Performed By: #### 2857-1 #### [facility] CLIA [id number] [address] [place] [address] [place] AMERICAComprehensive metabolic 2000 panelon 01-73-3185Stkyzst [Mass/Vol]4.2 g/dLNormal3.9-4.9CSt. [facility] Comment on above:Order Comment: Specimen Type: BLOOD SPECIMEN Ordering Facility: [facility] Address: [address] [place], [place] [address]Performed By: #### 2857-1 #### [facility] CLIA [id number] [address] [place] [address] [place] AMERICAALP [Catalytic activity/Vol]73 U/L Wmlzmr71-204YigcmujvyOhio State University [facility] on above:Order Comment: Specimen Type: BLOOD SPECIMEN Ordering Facility: [facility] Address: [address] [place], [place] [address]Performed By: #### 2857-1 #### [facility] CLIA [id number] [address] [place] [address] [place] AMERICAALT [Catalytic activity/Vol]16 U/L Lanxrw00-53IkkhiypxgOhio State University [facility] on above:Order Comment: Specimen Type: BLOOD SPECIMEN Ordering Facility: [facility] Address: [address] [place], [place] [address]Performed By: #### 2857-1 #### [facility] CLIA [id number] [address] [place] [address] [place] AMERICAAnion gap [Moles/Vol]10 mmol/LNormal 8-15[facility] on above:Order Comment: Specimen Type: BLOOD SPECIMEN Ordering Facility: [facility] Address: [address] [place], [place] [address]Performed By: #### 2857-1 #### [facility] CLIA [id number] [address] [place] [address] [place] AMERICAAST [Catalytic activity/Vol]17 U/L Hvgpqp17-94UwaszuqhhOhio State University [facility] on above:Order Comment: Specimen Type: BLOOD SPECIMEN Ordering Facility: [facility] Address: [address] [place], [place] [address]Performed By: #### 2857-1 #### [facility] CLIA [id number] [address] [place] [address] [place] AMERICABilirubin [Mass/Vol]0.6 mg/dLNormal 0.2-1.3CSt. [facility] on above:Order Comment: Specimen Type: BLOOD SPECIMEN Ordering Facility: [facility] Address: [address] [place], [place] [address]Performed By: #### 2857-1 #### [facility] CLIA [id number] [address] [place] [address] [place] AMERICACalcium [Mass/Vol]9.3 mg/dLNormal 8.5-10.2CSt. [facility] on above:Order Comment: Specimen Type: BLOOD SPECIMEN Ordering Facility: [facility] Address: [address] [place], [place] [address]Performed By: #### 2857-1 #### [facility] CLIA [id number] [address] [place] [address] [place] AMERICAChloride [Moles/Vol]101 mmol/LNormal 98-107[facility] on above:Order Comment: Specimen Type: BLOOD SPECIMEN Ordering Facility: [facility] Address: [address] [place], [place] [address]Performed By: #### 2857-1 #### [facility] CLIA [id number] [address] [place] [address] [place] AMERICACO2 [Moles/Vol]25 mmol/NUuzirc05-78 [facility] on above:Order Comment: Specimen Type: BLOOD SPECIMEN Ordering Facility: [facility] Address: [address] [place], [place] [address]Performed By: #### 2857-1 #### [facility] CLIA [id number] [address] [place] [address] [place] AMERICACreatinine [Mass/Vol]0.68 mg/dLLow 0.73-1.22[facility] on above:Order Comment: Specimen Type: BLOOD SPECIMEN Ordering Facility: [facility] Address: [address] [place], [place] [address]Performed By: #### 2857-1 #### [facility] CLIA [id number] [address] [place] [address] [place] AMERICAeGFRcr SerPlBld CKD-EPI 275795 mL/min/1.73m???Normal>=60[facility] on above:Order Comment: Specimen Type: BLOOD SPECIMEN Ordering Facility: [facility] Address: [address] [place], [place] [address]Result Comment: Estimated Glomerular Filtration Rate (eGFR) is calculated using the 2020 CKD-EPI cre atinine equation. This equation utilizes serum creatinine, sex, and age as parameters. The creatinine assay has traceable calibration to isotope dilution- mass spectrometry. Refer to KDIGO guidelines for clinical interpretation. In patients with unstable renal function, e.g. those with acute kidney injury, the eGFR may not accurately reflect actual GFR.Performed By: #### 2857-1 #### [facility] CLIA [id number] [address] [place] [address] [place] AMERICAGlucose [Mass/Vol]122 mg/xETbey96-72 [facility] on above:Order Comment: Specimen Type: BLOOD SPECIMEN Ordering Facility: [facility] Address: [address] [place], [place] [address]Result Comment: The [place] [employer] (ADA) provides guidance for cutoff [...] Standards of Medical Care in Diabetes 2016, [place] [employer]. Diabetes Care. 2016.39(Suppl 1).Performed By: #### 2857-1 #### [facility] CLIA [id number] [address] [place] [address] [place] AMERICAPotassium [Moles/Vol]4.5 mmol/L Normal3.7-5.1CSt. [facility] on above:Order Comment: Specimen Type: BLOOD SPECIMEN Ordering Facility: [facility] Address: [address] [place], [place] [address]inda [place] [id number] By: #### 2857-1 #### [facility] CLIA [id number] [address] [place] [address] [place] AMERICAProtein [Mass/Vol]6.4 g/dLNormal 6.3-8.0[facility] on above:Order Comment: Specimen Type: BLOOD SPECIMEN Ordering Facility: [facility] Address: [address] [place], [place] [address]Performed By: #### 2857-1 #### [facility] CLIA [id number] [address] [place] [address] [place] AMERICASodium [Moles/Vol]136 mmol/LNormal 136-144[facility] on above:Order Comment: Specimen Type: BLOOD SPECIMEN Ordering Facility: [facility] Address: [address] [place], [place] [address]Performed By: #### 2857-1 #### [facility] CLIA [id number] [address] [place] [address] [place] AMERICAUrea nitrogen [Mass/Vol]14 mg/dL Normal9-24[facility] on above:Order Comment: Specimen Type: BLOOD SPECIMEN Ordering Facility: [facility] Address: [address] [place], [place] [address]Performed By: #### 2857-1 #### [facility] CLIA [id number] [address] [place] [address] [place] AMERICAEosinophils/100 WBC Auto (Bld) Ordered By: Marco A Esqueda on 86-44-7528Yrmejevzhrt/100 WBC (Bld)7.5 %[facility] HospitalErythrocyte distribution width Auto (RBC) [Ratio]Ordered By: Marco A Esqueda on 32-30-0371Sybbylldraj distribution width (RBC) [Ratio]12.7 % 11.5-15.0[facility] HospitalHematocrit Auto (Bld) [Volume fraction]Ordered By: Marco A Esqueda on 41-22-6223Qmjgbrulqs (Bld) [Volume fraction]35.3 %Low39.0-51.0[facility] HospitalHemoglobin [Mass/volume] in BloodOrdered By: Marco A Esqueda on 87-66-3547Esymtyllxs (Bld) [Mass/Vol]12.0 g/dLLow13.0-17.0[facility] HospitalLaboratory - Hematology and Cell countsOrdered By: Marco A Esqueda on 47-04-0176Xbfllmdlcgh (Bld) [#/Vol]0.53 10*3/uLHigh<0.46[facility] HospitalImmature granulocytes (Bld) [#/Vol]0.06 10*3/uL<0.10[facility] Immature granulocytes/100 WBC (Bld)0.8 %[facility] Leukocytes [#/volume] corrected for nucleated erythrocytes in Blood by Automated counOrdered By: Marco A Esqueda on 00-97-5942PVB corrected for nucl RBC Auto (Bld) [#/Vol]7.09 k/uL3.70-11.00[facility] HospitalLymphocytes Auto (Bld) [#/Vol]Ordered By: Marco A Esqueda on 53-39-2459Wdgjxswxjwf (Bld) [#/Vol]2.09 10*3/uL1.00-4.00[facility] HospitalLymphocytes/100 WBC Auto (Bld) Ordered By: Marco A Esqueda on 57-11-9814Zpnnuxgwpgl/100 WBC (Bld)29.5 %[facility] Auto (RBC) [Entitic mass]Ordered By: Marco A Esqueda on 95-77-2342NAO (RBC) [Entitic mass]32.5 pg26.0-34.0[facility] HospitalMCHC Auto (RBC) [Mass/Vol]Ordered By: Marco A Esqueda on 92-17-5929ZGLJ (RBC) [Mass/Vol]34.0 g/dL30.5-36.0[facility] HospitalMCV Auto (RBC) [Entitic vol]Ordered By: Marco A Esqueda on 15-43-9186CSW (RBC) [Entitic vol]95.7 fL80.0-100.0[facility] HospitalMonocytes Auto (Bld) [#/Vol]Ordered By: Marco A Esqueda on 95-59-4134Dynwnexlf (Bld) [#/Vol]0.68 10*3/uL<0.87[facility] HospitalMonocytes/100 WBC Auto (Bld)Ordered By: Marco A Esqueda on 73-04-2643Tkacfgezg/100 WBC (Bld)9.6 %[facility] Neutrophils Auto (Bld) [#/Vol]Ordered By: Marco A Esqueda on 69-23-0075Omiumxzgdzt (Bld) [#/Vol]3.70 10*3/uL1.45-7.50[facility] Neutrophils/100 WBC Auto (Bld)Ordered By: Marco A Esqueda on 2025 Neutrophils/100 WBC (Bld)52.2 %[facility] HospitalNo Panel InformationOrdered By: Marco A Esqueda on 00-85-3665Ppqyjnac Specific Antigen0.26 ng/mL<2.60[facility] HospitalComment on above:Total PSA test methodology used is the Electrochemiluminescence Immunoassay by [employer]. Total PSA values by differing methodologies cannot be interchanged. Nucleated RBC Auto (Bld) [#/Vol]Ordered By: Marco A Esqueda on 57-19-0014Ysgjweeiw RBC (Bld) [#/Vol]10*3/uL<0.01[facility] HospitalNucleated erythrocytes [Presence] in Blood by Automated countOrdered By: Marco A Esqueda on 14-83-1610Ttzcjqxtv RBC Auto Ql (Bld)0.0 /100{WBC}[facility] HospitalPSA SerPl-mCncon 75-01-3969Jihsduil specific Ag [Mass/Vol]0.26 ng/mLNormal <2.60[facility] HospitalComment on above:Order Comment: Specimen Type: BLOOD SPECIMEN Ordering Facility: [facility] Address: [address] [place], [place] [address]Result Comment: Total PSA test methodology used is the Electrochemiluminescence Immunoassay by [employer]. Total PSA values by differing methodologies cannot be interchanged. Performed By: #### 56653-2 #### [facility] CLIA [id number] [address] [place] [address] 90860Eaypxwnw mean volume Auto (Bld) [Entitic vol]Ordered By: Marco A Esqueda on 29-46-3178Llqtcxmy mean volume (Bld) [Entitic vol]10.1 fL9.0-12.7 [facility] HospitalPlatelets Auto (Bld) [#/Vol]Ordered By: Marco A Esqueda on 39-52-5929Dummclmdg (Bld) [#/Vol]204 10*3/cJ196-247CssfxyklpOhiohealth Van Wert HospitalRBC Auto (Bld) [#/Vol]Ordered By: Marco A Esqueda on 57-06-0775SBR (Bld) [#/Vol]3.69 10*6/uLLow4.20-6.00[facility] HospitalCNOVSPon 00-90-5227RYRQIZMqrsf (SP) Office ([facility]) PABLO FELIX ([id number]) 1945 M Date Time Provider Department 11/07/24 [...] mg 24 hr tablet Take by mouth. 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 Left base margin positive for neoplasm. Seminal vesicles with no diagnostic abnormality. 2 resected lymph nodes negative for neoplasm. LABS: Hemoglobin (g/dL) Date Value 10/31/2024 12.4 05/08/2018 12.8 Hem (more content not included)...NormalCincinnati [facility] Medical Center W Auto Differential panel (Bld)on 98-14-1417Vhbztbnww (Bld) [#/Vol]0.05 10*3/uLNormal <0.11CSt. Rita's HospitalComment on above:Order Comment: Specimen Type: BLOOD SPECIMEN Ordering Facility: [facility] Address: [address] [place], [place] [address]Grdcjsgrs By: #### 29798-2 #### [facility] CLIA [id number] [address] [place] [address] 90929Rnqdfvyki/100 WBC (Bld)0.7 %[facility] Comment on above:Order Comment: Specimen Type: BLOOD SPECIMEN Ordering Facility: [facility] Address: [address] [place], [place] [address]Ieezyjlxn By: #### 79694-2 #### [facility] CLIA [id number] [address] [place], [place] [address]Wybjsliyzzkw cell count method Nom (Bld)AutoNormalClevelGlenbeigh Hospital on above:Order Comment: Specimen Type: BLOOD SPECIMEN Ordering Facility: [facility] Address: [address] [place], [place] [address]Performed By: #### 81223-9 #### [facility] CLIA [id number] [address] [place] [address] 66695Jjveyojfqra (Bld) [#/Vol]0.51 10*3/uLHigh<0.46[facility] on above:Order Comment: Specimen Type: BLOOD SPECIMEN Ordering Facility: [facility] Address: [address] [place], [place] [address]Performed By: #### 63221-0 #### [facility] CLIA [id number] [address] [place] [address] 40880Tjeumqkrvsc/100 WBC (Bld)7.3 %NormalFayette County Memorial Hospital Comment on above:Order Comment: Specimen Type: BLOOD SPECIMEN Ordering Facility: [facility] Address: [address] [place], [place] [address]Performed By: #### 53106-5 #### [facility] CLIA [id number] [address] [place] [address] 91956Fjgthisyzgx distribution width (RBC) [Ratio]12.9 %Normal 11.5-15.0[facility] on above:Order Comment: Specimen Type: BLOOD SPECIMEN Ordering Facility: [facility] Address: [address] [place], [place] [address]Performed By: #### 70643-6 #### [facility] CLIA [id number] [address] [place] [address] 62310Foymamiiap (Bld) [Volume fraction]36.0 %Low39.0-51.0[facility] on above:Order Comment: Specimen Type: BLOOD SPECIMEN Ordering Facility: [facility] Address: [address] [place], [place] [address]Performed By: #### 41935-5 #### [facility] CLIA [id number] [address] [place] [address] 32870Nvmqufkjxs (Bld) [Mass/Vol]12.4 g/dLLow13.0-17.0[facility] on above:Order Comment: Specimen Type: BLOOD SPECIMEN Ordering Facility: [facility] Address: [address] [place], [place] [address]Performed By: #### 26963-4 #### [facility] CLIA [id number] [address] [place] [address] 79064Qfvddbhu granulocytes (Bld) [#/Vol]0.04 10*3/uLNormal<0.10 [facility] on above:Order Comment: Specimen Type: BLOOD SPECIMEN Ordering Facility: [facility] Address: [address] [place], [place] [address]Performed By: #### 29172-0 #### [facility] CLIA [id number] [address] [place] [address] 89193Yypinmuk granulocytes/100 WBC (Bld)0.6 %NormalOhio State University [facility] on above:Order Comment: Specimen Type: BLOOD SPECIMEN Ordering Facility: [facility] Address: [address] [place], [place] [address]Performed By: #### 13389-4 #### [facility] CLIA [id number] [address] [place] [address] 32001Mzfmtijotgx (Bld) [#/Vol]1.80 10*3/uLNormal1.00-4.00[facility] on above:Order Comment: Specimen Type: BLOOD SPECIMEN Ordering Facility: [facility] Address: [address] [place], [place] [address]Performed By: #### 63808-1 #### [facility] CLIA [id number] [address] [place] [address] 44863Qpijdbzgyar/100 WBC (Bld)25.8 %NormalOhio State University [facility] Center on above:Order Comment: Specimen Type: BLOOD SPECIMEN Ordering Facility: [facility] Address: [address] [place], [place] [address]Performed By: #### 18980-0 #### [facility] CLIA [id number] [address] [place] [address] 87961XSG (RBC) [Entitic mass]32.2 qpYkeqxc89.0-34.0[facility] on above:Order Comment: Specimen Type: BLOOD SPECIMEN Ordering Facility: [facility] Address: [address] [place], [place] [address]Performed By: #### 38340-3 #### [facility] CLIA [id number] [address] [place] [address] 07247BIEA (RBC) [Mass/Vol]34.4 g/gKAnnrip86.5-36.0[facility] on above:Order Comment: Specimen Type: BLOOD SPECIMEN Ordering Facility: [facility] Address: [address] [place], [place] [address]Performed By: #### 13878-7 #### [facility] CLIA [id number] [address] [place] [address] 17238PKB (RBC) [Entitic vol]93.5 hZHxutgm89.0-100.0[facility] on above:Order Comment: Specimen Type: BLOOD SPECIMEN Ordering Facility: [facility] Address: [address] [place], [place] [address]Performed By: #### 25280-2 #### [facility] CLIA [id number] [address] [place] [address] 41695Bittwlqyo (Bld) [#/Vol]0.69 10*3/uLNormal<0.87[facility] on above:Order Comment: Specimen Type: BLOOD SPECIMEN Ordering Facility: [facility] Address: [address] [place], [place] [address]Performed By: #### 57097-9 #### [facility] CLIA [id number] [address] [place] [address] 91901Zengdjqhd/100 WBC (Bld)9.9 %NormalFayette County Memorial Hospital Comment on above:Order Comment: Specimen Type: BLOOD SPECIMEN Ordering Facility: [facility] Address: [address] [place], [place] [address]Performed By: #### 09291-3 #### [facility] CLIA [id number] [address] [place] [address] 29419Awqgqqkeakp (Bld) [#/Vol]3.90 10*3/uLNormal1.45-7.50[facility] on above:Order Comment: Specimen Type: BLOOD SPECIMEN Ordering Facility: [facility] Address: [address] [place], [place] [address]Performed By: #### 18992-6 #### [facility] CLIA [id number] [address] [place] [address] 63687Ozbgydlultm/100 WBC (Bld)55.7 %NormalFayette County Memorial HospitalComment on above:Order Comment: Specimen Type: BLOOD SPECIMEN Ordering Facility: [facility] Address: [address] [place], [place] [address]Performed By: #### 68512-3 #### [facility] CLIA [id number] [address] [place] [address] 10074Vcqvreurb RBC (Bld) [#/Vol]10*3/uLNormal<0.01[facility] on above:Order Comment: Specimen Type: BLOOD SPECIMEN Ordering Facility: [facility] Address: [address] [place], [place] [address]Performed By: #### 63223-9 #### [facility] CLIA [id number] [address] [place] [address] 90358Olccibulu RBC/100 WBC (Bld) [Ratio]0.0 /100 WBCNormalCSt. [facility] on above:Order Comment: Specimen Type: BLOOD SPECIMEN Ordering Facility: [facility] Address: [address] [place], [place] [address]Performed By: #### 34237-7 #### [facility] CLIA [id number] [address] [place] [address] 25041Bgrezcrd mean volume (Bld) [Entitic vol]9.8 fLNormal9.0-12.7 [facility] on above:Order Comment: Specimen Type: BLOOD SPECIMEN Ordering Facility: [facility] Address: [address] [place], [place] [address]Performed By: #### 39446-3 #### [facility] CLIA [id number] [address] [place] [address] 23596Ckjbogswi (Bld) [#/Vol]204 10*3/tCEarrbo646-437GreowuuzgOhio [facility] on above:Order Comment: Specimen Type: BLOOD SPECIMEN Ordering Facility: [facility] Address: [address] [place], [place] [address]Performed By: #### 58575-1 #### [facility] CLIA [id number] [address] [place] [address] 07370LRN (Bld) [#/Vol]3.85 10*6/uLLow4.20-6.00[facility] on above:Order Comment: Specimen Type: BLOOD SPECIMEN Ordering Facility: [facility] Address: [address] [place], [place] [address]Performed By: #### [id number] #### [facility] CLIA [id number] [address] [place] [address] 13920KDF (Bld) [#/Vol]6.99 10*3/uLNormal3.70-11.00[facility] on above:Order Comment: Specimen Type: BLOOD SPECIMEN Ordering Facility: [facility] Address: [address] [place], [place] [address]Performed By: #### 92383-5 #### [facility] CLIA [id number] [address] [place] [address] 96469Siojrhtxmnalx metabolic 2000 panelon [id number] [Mass/Vol]4.1 g/dLNormal3.9-4.9CSt[facility] on above:Order Comment: Specimen Type: BLOOD SPECIMEN Ordering Facility: [facility] Address: [address] [place], [place] [address]Performed By: #### 2857-1 #### [facility] CLIA [id number] [address] [place] [address] [place] AMERICAALP [Catalytic activity/Vol]84 U/L Jipqmi68-767YqqkjoaalOhio State University Wexner Medical Center on above:Order Comment: Specimen Type: BLOOD SPECIMEN Ordering Facility: [facility] Address: [address] [place], [place] [address]Performed By: #### 2857-1 #### [facility] CLIA [id number] [address] [place] [address] [place]ALT [Catalytic activity/Vol]18 U/L [id number] State University Wexner Medical Center on above:Order Comment: Specimen Type: BLOOD SPECIMEN Ordering Facility: [facility] Address: [address] [place], [place] [address]Performed By: #### 2857-1 #### [facility] CLIA [id number] [address] [place] [address] [place] AMERICAAnion gap [Moles/Vol]12 mmol/LNormal 8-15[facility] on above:Order Comment: Specimen Type: BLOOD SPECIMEN Ordering Facility: [facility] Address: [address] [place], [place] [address]Performed By: #### 2857-1 #### [facility] CLIA [id number] [address] [place] [address] [place] AMERICAAST [Catalytic activity/Vol]18 U/L Euvioq34-40QdgyxtvnnOhio State University Wex[facility] Medical Center on above:Order Comment: Specimen Type: BLOOD SPECIMEN Ordering Facility: [facility] Address: [address] [place], [place] [address]Performed By: #### 2857-1 #### [facility] CLIA [id number] [address] [place] [address] [place] AMERICABilirubin [Mass/Vol]0.5 mg/dLNormal 0.2-1.3CSt. [facility] on above:Order Comment: Specimen Type: BLOOD SPECIMEN Ordering Facility: [facility] Address: [address] [place], [place] [address]Performed By: #### 2857-1 #### [facility] CLIA [id number] [address] [place] [address] [place] AMERICACalcium [Mass/Vol]10.1 mg/dLNormal 8.5-10.2CSt. [facility] on above:Order Comment: Specimen Type: BLOOD SPECIMEN Ordering Facility: [facility] Address: [address] [place], [place] [address]Performed By: #### 2857-1 #### [facility] CLIA [id number] [address] [place] [address] [place] AMERICAChloride [Moles/Vol]101 mmol/LNormal 98-107[facility] on above:Order Comment: Specimen Type: BLOOD SPECIMEN Ordering Facility: [facility] Address: [address] [place], [place] [address]Performed By: #### 2857-1 #### [facility] CLIA [id number] [address] [place] [address] [place] AMERICACO2 [Moles/Vol]24 mmol/AZkdjhg21-02 [facility] on above:Order Comment: Specimen Type: BLOOD SPECIMEN Ordering Facility: [facility] Address: [address] [place], [place] [address]Performed By: #### 2857-1 #### [facility] CLIA [id number] [address] [place] [address] [place] AMERICACreatinine [Mass/Vol]0.88 mg/dL Normal0.73-1.22[facility] on above:Order Comment: Specimen Type: BLOOD SPECIMEN Ordering Facility: [facility] Address: [address] [place], [place] [address]Performed By: #### 2857-1 #### [facility] CLIA [id number] [address] [place] [address] [place] AMERICACreatinine and Glomerular filtration rate.predicted panel (S/P/Bld)88 mL/min/1.73m???Normal>=60[facility] on above:Order Comment: Specimen Type: BLOOD SPECIMEN Ordering Facility: [facility] Address: [address] [place], [place] [address]Result Comment: Estimated Glomerular Filtration Rate (eGFR) is calculated using the 2020 CKD-EPI cre atinine equation. This equation utilizes serum creatinine, sex, and age as parameters. The creatinine assay has traceable calibration to isotope dilution- mass spectrometry. Refer to KDIGO guidelines for clinical interpretation. In patients with unstable renal function, e.g. those with acute kidney injury, the eGFR may not accurately reflect actual GFR.Performed By: #### 2857-1 #### [facility] CLIA [id number] [address] [place] [address] [place] AMERICAGlucose [Mass/Vol]123 mg/yFIyra09-08 [facility] on above:Order Comment: Specimen Type: BLOOD SPECIMEN Ordering Facility: [facility] Address: [address] [place], [place] [address]Result Comment: The [place] Diabetes Association (ADA) provides guidance for cutoff [...] Standards of Medical Care in Diabetes 2016, [place] [employer]. Diabetes Care. 2016.39(Suppl 1).Performed By: #### 2857-1 #### [facility] CLIA [id number] [address] [place] [address] [place] AMERICAPotassium [Moles/Vol]4.6 mmol/L Normal3.7-5.1CSt. [facility] on above:Order Comment: Specimen Type: BLOOD SPECIMEN Ordering Facility: [facility] Address: [address] [place], [place] [address]Performed By: #### 2857-1 #### [facility] CLIA [id number] [address] [place] [address] [place] AMERICAProtein [Mass/Vol]6.5 g/dLNormal 6.3-8.0[facility] on above:Order Comment: Specimen Type: BLOOD SPECIMEN Ordering Facility: [facility] Address: [address] [place], [place] [address]Performed By: #### 2857-1 #### [facility] CLIA [id number] [address] [place] [address] [place] AMERICASodium [Moles/Vol]137 mmol/LNormal 136-144[facility] on above:Order Comment: Specimen Type: BLOOD SPECIMEN Ordering Facility: [facility] Address: [address] [place], [place] [address]Performed By: #### 2857-1 #### [facility] CLIA [id number] [address] [place] [address] [place] AMERICAUrea nitrogen [Mass/Vol]16 mg/dL Normal9-24[facility] on above:Order Comment: Specimen Type: BLOOD SPECIMEN Ordering Facility: [facility] Address: [address] [place], [place] [address]Performed By: #### 2857-1 #### [facility] CLIA [id number] [address] [place] [address] [place] AMERICAPSA SerPl-mCncon [id number] specific Ag [Mass/Vol]0.22 ng/mLNormal<2.60[facility] on above:Order Comment: Specimen Type: BLOOD SPECIMEN Ordering Facility: [facility] Address: [address] [place], [place] [address]Zsixce Comment: Total PSA test methodology used is the Electrochemiluminescence Immunoassay by [employer]. Total PSA values by differing methodologies cannot be interchanged. Performed By: #### 72768-2 #### [facility] CLIA [id number] [address] [place] [address] 56768Lzjepdxzbf Visit Summaryon [id number] Visit Summary Ambulatory Visit Summary PABLO FELIX [...] enzalutamide (Xtandi 80 mg oral tablet) glimepiride hydrochlorothiazide-lisinopril (hydrochlorothiazide-lisinopril 12.5 mg-20 mg Tab) ipratropium nasal (ipratropium Nasal 0.06% [place]) metformin (metformin 1000 mg oral tablet) metoprolol [...] Anthony SCRUGGS MD Where: [facility] [address] [facility] [place] [address]- You Need to Schedule the Following Appointments Follow Up with Anthony SCRUGGS MD, URL When: Comments: 6 mos w/ PSA and Lupron Where: [facility] [address], [facility] [place] [address] [phone] Medications What How Much When Instructions Unchanged [...] prescribing physician if questions or concerns Unchanged hydrochlorothiazide-lisinopril (hydrochlorothiazide-lisinopril 12.5 mg-20 mg Tab) 1 Tablets By Mouth Every day Contact prescribing physician if questions or concerns Unchanged ipratropium nasal (ipratropium Nasal 0.06% [place]) Contact prescribing physician if questions or concerns Unchanged metformin (metformin 1000 mg oral tablet) By Mouth 2 times a day Contact prescribing physician if questions or concerns Unchanged metoprolol (metoprolol 25 mg ER Tab) 1 Tablets By Mouth 2 times a day Contact prescribingphysician if questions or concerns Medications and Immunizations [...] If the prostate cancer (more content not included)...[facility] CenterU[facility] Office/Clinic Noteon [id number] Office/Clinic NoteUrology Office/Clinic Note Chief Complaint 6 month with [...] 0.27 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 Last Lupron administered 04/19/24, prior to that was 04/2022. Last saw oncology 08/08/24. Plan was to continue Xtandi daily and Xgeva q3m, and Lupron q6m per ouroffice. Taking Xtandi 160mg qd and Xgeva q3mos. PSA increased slightly from prior. Lupron 45 mgIM injectiongiven today with no complications. Right glute. Pt. [...] Anthony Lee, URL [facility] [address] , [place] [address] [phone] Additional Instructions: 6 mos w/ PSA and [...] atorvastatin 40 mg Tab glimepiride, Oral, Daily hydrochlorothiazide-lisinopril 12.5 mg-20 mg Tab, 1 tab(s), Oral, Daily ipratropium Nasal 0.06% [place] metformin 1000 mg oral tablet, Oral, BID [...] Comments influenza virus vacc (more content not included)...[facility] CenterComment on above:Result Comment: Electronically Signed By: SCRUGGS Anthony JAMES\.br\Date and Time Signed: 10/07/24 10:00 EDT\.br\Electronically Co- Signed By: Jeanine Crandall\.br\Date and Time Co-Signed: 10/07/24 09:59 EDTCNOVSPon [id number] (SP) Office ([place]) JERICAPABLO An ([id number]) 1945 M Date Time Provider Department 08/08/24 9:30 AM CHRISTO HOWARD During your visit today, we recorded the following information about you: Temperature Pulse Respiration Blood pressure 97.9 degrees 57/minute 16/minute 149/56 Weight Height 95 kg 1.676 m Christo Howard APRN.[employer] 08/08/2024 12:09 PM Signed PATIENT NAME: Pablo [...] mg 24 hr tablet Take by mouth. 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 Left base margin positive for neoplasm. Seminal vesicles with no diagnostic abnormality. 2 resected lymph nodes negative for neoplasm. LABS: Hemoglobin (g/dL) Date Value 08/01/2024 12.2 05/08/2018 12.8 Hematoc (more content not included)...NormalFayette County Memorial HospitalBasophils Auto (Bld) [#/Vol]on [id number] (Bld) [#/Vol]Automated basophil count <0.11[facility] HospitalBasophils/100 WBC Auto (Bld)on 08-01-2024 Basophils/100 WBC (Bld)Automated basophil %[facility] Blood manual differential comment interpretation narrativeon [id number] differential comment [place] (Bld) [Interp]Blood manual differential comment interpretation narrativeOhiohealth Van Wert HospitalCB W Auto Differential panel (Bld)on [id number] (Bld) [#/Vol]0.03 10*3/uLNISelect Medical [facility] [place] Basophils/100 WBC (Bld)0.5 %[facility], BeachwoodDifferential cell count method Nom (Bld)AutoCleveland ClinicEosinophils (Bld) [#/Vol]0.5 10*3/uLHighNINFSelect Medical [facility], BeachwoodEosinophils/100 WBC (Bld)8.5 %[facility], BeachwoodErythrocyte distribution width (RBC) [Ratio]12.7 %11.5 - 15.0 %[facility], BeachwoodHematocrit (Bld) [Volume fraction]35.7 %Low39.0 - 51.0 %[facility], BeachwoodHemoglobin (Bld) [Mass/Vol]12.2 g/dLLow13.0 - 17.0 g/dLSelect Medical Cleveland Clinic Rehabilitation Hospital, BeachwoodImmature granulocytes (Bld) [#/Vol]0.04 10*3/uLNINFSelect Medical [facility], BeachwoodImmature granulocytes/100 WBC (Bld)0.7 %[facility], BeachwoodInterpretation and review of laboratory resultsAbnormalCOhioHealth [facility] Hospital Lymphocytes (Bld) [#/Vol]1.55 10*3/uLSelect Medical [facility] Clinic Rehabilitation Hospital, BeachwoodLymphocytes/100 WBC (Bld) 26.5 %Cleveland ClinicH (RBC) [Entitic mass]32.4 pg26.0 - 34.0 pgClevelEly-Bloomenson Community HospitalHC (RBC) [Mass/Vol]34.2 g/dL30.5 - 36.0 g/dLCleveland ClinicV (RBC) [Entitic vol]94.9 fL80.0 - 100.0 fLCOhioHealth Shelby HospitalMonocytes (Bld) [#/Vol]0.55 10*3/uLNINFSelect Medical [facility], BeachwoodMonocytes/100 WBC (Bld)9.4 %[facility] Neutrophils (Bld) [#/Vol]3.19 10*3/[facility]carawas HospitalNeutrophils/100 WBC (Bld) 54.4 %[facility], BeachwoodNucleated RBC (Bld) [#/Vol]NINFCleveland Murray County Medical CenterNucleated RBC/100 WBC (Bld) [Ratio]0 %/100 WBCSelect Medical Cleveland Clinic Rehabilitation Hospital, BeachwoodPlatelet mean volume (Bld) [Entitic vol]9.4 fL9.0 - 12.7 fLCOhioHealth Shelby HospitalPlatelets (Bld) [#/Vol]177 10*3/uLSelect Medical [facility] Clinic Rehabilitation Hospital, BeachwoodRBC (Bld) [#/Vol]3.76 10*6/uLLow4.20 - 6.00 m/Tuscarawas HospitalWBC (Bld) [#/Vol]5.86 10*3/uLBrown Memorial Hospital ClinicBasophils (Bld) [#/Vol]0.03 10*3/uLNormal<0.11CSt. [facility] on above: Order Comment: Specimen Type: BLOOD SPECIMEN Ordering Facility: [facility] Address: [address] [place], [place] [address]Performed By: #### 2857-1 #### [facility] CLIA [id number] [address] [place] [address] [place] AMERICABasophils/100 WBC (Bld)0.5 %Normal [facility] on above:Order Comment: Specimen Type: BLOOD SPECIMEN Ordering Facility: [facility] Address: [address] [place], [place] [address]Performed By: #### 2857-1 #### [facility] CLIA [id number] [address] [place] [address] [place] AMERICADifferential cell count method Nom (Bld)AutoNormalCSt. [facility] on above:Order Comment: Specimen Type: BLOOD SPECIMEN Ordering Facility: [facility] Address: [address] [place], [place] [address]Performed By: #### 2857-1 #### [facility] CLIA [id number] [address] [place] [address] [place] AMERICAEosinophils (Bld) [#/Vol]0.50 10*3/uLHigh<0.46[facility] on above:Order Comment: Specimen Type: BLOOD SPECIMEN Ordering Facility: [facility] Address: [address] [place], [place] [address]Performed By: #### 2857-1 #### [facility] CLIA [id number] [address] [place] [address] [place] AMERICAEosinophils/100 WBC (Bld)8.5 %Normal [facility] on above:Order Comment: Specimen Type: BLOOD SPECIMEN Ordering Facility: [facility] Address: [address] [place], [place] [address]Performed By: #### 2857-1 #### [facility] CLIA [id number] [address] [place] [address] [place] AMERICAErythrocyte distribution width (RBC) [Ratio]12.7 %Vroejr71.5-15.0[facility] on above:Order Comment: Specimen Type: BLOOD SPECIMEN Ordering Facility: [facility] Address: [address] [place], [place] [address]Performed By: #### 2857-1 #### [facility] CLIA [id number] [address] [place] [address] [place] AMERICAHematocrit (Bld) [Volume fraction] 35.7 %Low39.0-51.0[facility] on above:Order Comment: Specimen Type: BLOOD SPECIMEN Ordering Facility: [facility] Address: [address] [place], [place] [address]Performed By: #### 2857-1 #### [facility] CLIA [id number] [address] [place] [address] [place] AMERICAHemoglobin (Bld) [Mass/Vol]12.2 g/dL Low13.0-17.0[facility] on above:Order Comment: Specimen Type: BLOOD SPECIMEN Ordering Facility: [facility] Address: [address] [place], [place] [address]Performed By: #### 2857-1 #### [facility] CLIA [id number] [address] [place] [address] [place] AMERICAImmature granulocytes (Bld) [#/Vol] 0.04 10*3/uLNormal<0.10[facility] on above:Order Comment: Specimen Type: BLOOD SPECIMEN Ordering Facility: [facility] Address: [address] [place], [place] [address]Performed By: #### 2857-1 #### [facility] CLIA [id number] [address] [place] [address] [place] AMERICAImmature granulocytes/100 WBC (Bld) 0.7 %NormalOhio State University Wexner Medical Center on above:Order Comment: Specimen Type: BLOOD SPECIMEN Ordering Facility: [facility] Address: [address] [place], [place] [address]Performed By: #### 2857-1 #### [facility] CLIA [id number] [address] [place] [address] [place] AMERICALymphocytes (Bld) [#/Vol]1.55 10*3/uLNormal1.00-4.00[facility] on above:Order Comment: Specimen Type: BLOOD SPECIMEN Ordering Facility: [facility] Address: [address] [place], [place] [address]Performed By: #### 2857-1 #### [facility] CLIA [id number] [address] [place] [address] [place] AMERICALymphocytes/100 WBC (Bld)26.5 % NormalOhio State University We[facility] Medical Center on above:Order Comment: Specimen Type: BLOOD SPECIMEN Ordering Facility: [facility] Address: [address] [place], [place] [address]Performed By: #### 2857-1 #### [facility] CLIA [id number] [address] [place] [address] (RBC) [Entitic mass]32.4 pg Ednwbb89.0-34.0[facility] on above:Order Comment: Specimen Type: BLOOD SPECIMEN Ordering Facility: [facility] Address: [address] [place], [place] [address]Performed By: #### 2857-1 #### [facility] CLIA [id number] [address] [place] [address] (RBC) [Mass/Vol]34.2 g/dLNormal 30.5-36.0[facility] on above:Order Comment: Specimen Type: BLOOD SPECIMEN Ordering Facility: [facility] Address: [address] [place], [place] [address]Performed By: #### 2857-1 #### [facility] CLIA [id number] [address] [place], [place] [address] [place] AMERICAMCV (RBC) [Entitic vol]94.9 fLNormal 80.0-100.0[facility] on above:Order Comment: Specimen Type: BLOOD SPECIMEN Ordering Facility: [facility] Address: [address] [place], [place] [address]Performed By: #### 2857-1 #### [facility] CLIA [id number] [address] [place] [address] [place] AMERICAMonocytes (Bld) [#/Vol]0.55 10*3/uL Normal<0.87[facility] on above:Order Comment: Specimen Type: BLOOD SPECIMEN Ordering Facility: [facility] Address: [address] [place], [place] [address]Performed By: #### 2857-1 #### [facility] CLIA [id number] [address] [place] [address] [place] AMERICAMonocytes/100 WBC (Bld)9.4 %Normal [facility] on above:Order Comment: Specimen Type: BLOOD SPECIMEN Ordering Facility: [facility] Address: [address] [place], [place] [address]Performed By: #### 2857-1 #### [facility] CLIA [id number] [address] [place] [address] [place] AMERICANeutrophils (Bld) [#/Vol]3.19 10*3/uLNormal1.45-7.50[facility] on above:Order Comment: Specimen Type: BLOOD SPECIMEN Ordering Facility: [facility] Address: [address] [place], [place] [address]Performed By: #### 2857-1 #### [facility] CLIA [id number] [address] [place] [address] [place] AMERICANeutrophils/100 WBC (Bld)54.4 % NormalOhio State University We[facility] Medical Center on above:Order Comment: Specimen Type: BLOOD SPECIMEN Ordering Facility: [facility] Address: [address] [place], [place] [address]Performed By: #### 2857-1 #### [facility] CLIA [id number] [address] [place] [address] [place] AMERICANucleated RBC (Bld) [#/Vol]10*3/uL Normal<0.01[facility] on above:Order Comment: Specimen Type: BLOOD SPECIMEN Ordering Facility: [facility] Address: [address] [place], [place] [address]Performed By: #### 2857-1 #### [facility] CLIA [id number] [address] [place] [address] [place] AMERICANucleated RBC/100 WBC (Bld) [Ratio] 0.0 /100 WBCNormalCSt. [facility] on above:Order Comment: Specimen Type: BLOOD SPECIMEN Ordering Facility: [facility] Address: [address] [place], [place] [address]Performed By: #### 2857-1 #### [facility] CLIA [id number] [address] [place] [address] [place] AMERICAPlatelet mean volume (Bld) [Entitic vol]9.4 fLNormal9.0-12.7CSt. [facility] on above:Order Comment: Specimen Type: BLOOD SPECIMEN Ordering Facility: [facility] Address: [address] [place], [place] [address]Performed By: #### 2857-1 #### [facility] CLIA [id number] [address] [place] [address] [place] AMERICAPlatelets (Bld) [#/Vol]177 10*3/uL Tnrdtv589-484BzlkgeysoOhio State University [facility] Center on above:Order Comment: Specimen Type: BLOOD SPECIMEN Ordering Facility: [facility] Address: [address] [place], [place] [address]Performed By: #### 2857-1 #### [facility] CLIA [id number] [address] [place] [address] [place] AMERICARBC (Bld) [#/Vol]3.76 10*6/uLLow 4.20-6.00[facility] on above:Order Comment: Specimen Type: BLOOD SPECIMEN Ordering Facility: [facility] Address: [address] [place], [place] [address]Performed By: #### 2857-1 #### [facility] CLIA [id number] [address] [place] [address] [place] AMERICAWBC (Bld) [#/Vol]5.86 10*3/uLNormal 3.70-11.00[facility] on above:Order Comment: Specimen Type: BLOOD SPECIMEN Ordering Facility: [facility] Address: [address] [place], [place] [address]Performed By: #### 2857-1 #### [facility] CLIA [id number] [address] [place] [address] OF [facility] CAMPUSComprehensive metabolic 2000 panel Ordered By: Liza Lilly on 51-95-4963Onpulzg [Mass/Vol]4.2 g/dL3.9 - 4.9 g/dL [facility]ALP [Catalytic activity/Vol]75 U/L38 - 113 U/LCleveland Clinic ALT [Catalytic activity/Vol]17 U/L10 - 54 U/LCleveland ClinicAnion gap [Moles/Vol]11 mmol/L8 - 15 mmol/LCleveland ClinicAST [Catalytic activity/Vol]17 U/L14 - 40 U/LCleveland ClinicBilirubin [Mass/Vol]0.6 mg/dL0.2 - 1.3 mg/dL [facility]woodCalcium [Mass/Vol]10.3 mg/dLHigh8.5 - 10.2 mg/dLSelect [facility] [place] Chloride [Moles/Vol]100 mmol/L98 - 107 mmol/LCleveland ClinicCO2 [Moles/Vol]26 mmol/L22 - 30 mmol/LCleveland ClinicCreatinine [Mass/Vol]0.81 mg/dL0.73 - 1.22 mg/dLSelect [facility], BeachwoodGFR/1.73 sq M.predicted among non-blacks MDRD (S/P/Bld) [Vol rate/Area]90 mL/min/{1.73_m2}- PINFCleveland ClinicComment on above: Estimated Glomerular Filtration Rate (eGFR) is calculated using the 2020 CKD-EPI creatinine equation. This equation utilizes serum creatinine, sex, and age as parameters. The creatinine assay has traceable calibration to isotope dilution- mass spectrometry. Refer to KDIGO guidelines for clinical interpretation. In patients with unstable renal function, e.g. those with acute kidney injury, the eGFRmay not accurately reflect actual GFR.Glucose [Mass/Vol]119 mg/fEVssz05 - 99 mg/dLLima Memorial Hospital on above:The [place] Diabetes Association (ADA) provides guidance for cutoff values for fasting glucose andrandom glucose. The ADA defines fasting as no caloric intake for at least 8 hours. Fasting plasma gl ucose results between 100 to 125 mg/dL indicate [...] Standards of Medical Care in Diabetes 2016, [place] Diabetes Association. Diabetes Care. 2016.39(Suppl 1). Interpretation and review of laboratory resultsAbnormalCleveland ClinicPotassium [Moles/Vol]4.8 mmol/L3.7 - 5.1 mmol/LCmercy health defiance hospital ClinicProtein [Mass/Vol]6.3 g/dL 6.3 - 8.0 g/dLDayton VA Medical Centerodium [Moles/Vol]137 mmol/L136 - 144 mmol/L [facility] BeachwoodUrea nitrogen [Mass/Vol]14 mg/dL9 - 24 mg/dLChildren'S Hospital Of ColumbusComprehensive metabolic 2000 panelon 89-56-8462Leehswi [Mass/Vol]4.2 g/dLNormal3.9-4.9CSt. [facility] on above:Order Comment: Specimen Type: BLOOD SPECIMEN Ordering Facility: [facility] Address: [address] [place], [place] [address]Performed By: #### 2857-1 #### [facility] CLIA [id number] [address] [place] [address] [place] AMERICAALP [Catalytic activity/Vol]75 U/L Xdnhtr43-335DkhzcxqabOhio State University [facility] on above:Order Comment: Specimen Type: BLOOD SPECIMEN Ordering Facility: [facility] Address: [address] [place], [place] [address]Performed By: #### 2857-1 #### [facility] CLIA [id number] [address] [place], [place] [address] [place] AMERICAALT [Catalytic activity/Vol]17 U/L Xqlpoy39-31FcpamfvxyOhio State University Wexner Medical Center on above:Order Comment: Specimen Type: BLOOD SPECIMEN Ordering Facility: [facility] Address: [address] [place], [place] [address]Performed By: #### 2857-1 #### [facility] CLIA [id number] [address] [place] [address] [place] AMERICAAnion gap [Moles/Vol]11 mmol/LNormal 8-15[facility] on above:Order Comment: Specimen Type: BLOOD SPECIMEN Ordering Facility: [facility] Address: [address] [place], [place] [address]Performed By: #### 2857-1 #### [facility] CLIA [id number] [address] [place] [address] [place] AMERICAAST [Catalytic activity/Vol]17 U/L Dwfexn67-00SewfptkbsOhio State University Wexner Medical Center on above:Order Comment: Specimen Type: BLOOD SPECIMEN Ordering Facility: [facility] Address: [address] [place], [place] [address]Performed By: #### 2857-1 #### [facility] CLIA [id number] [address] [place] [address] [place] AMERICABilirubin [Mass/Vol]0.6 mg/dLNormal 0.2-1.3CSt. [facility] on above:Order Comment: Specimen Type: BLOOD SPECIMEN Ordering Facility: [facility] Address: [address] [place], [place] [address]Performed By: #### 2857-1 #### [facility] CLIA [id number] [address] [place] [address] [place] AMERICACalcium [Mass/Vol]10.3 mg/dLHigh 8.5-10.2CSt. [facility] on above:Order Comment: Specimen Type: BLOOD SPECIMEN Ordering Facility: [facility] Address: [address] [place], [place] [address]Performed By: #### 2857-1 #### [facility] CLIA [id number] [address] [place] [address] [place] AMERICAChloride [Moles/Vol]100 mmol/LNormal 98-107[facility] on above:Order Comment: Specimen Type: BLOOD SPECIMEN Ordering Facility: [facility] Address: [address] [place], [place] [address]Performed By: #### 2857-1 #### [facility] CLIA [id number] [address] [place] [address] [place] AMERICACO2 [Moles/Vol]26 mmol/QZcegtj23-43 [facility] on above:Order Comment: Specimen Type: BLOOD SPECIMEN Ordering Facility: [facility] Address: [address] [place], [place] [address]Performed By: #### 2857-1 #### [facility] CLIA [id number] [address] [place] [address] [place] AMERICACreatinine [Mass/Vol]0.81 mg/dL Normal0.73-1.22[facility] on above:Order Comment: Specimen Type: BLOOD SPECIMEN Ordering Facility: [facility] Address: [address] [place], [place] [address]Performed By: #### 2857-1 #### [facility] CLIA [id number] [address] [place] [address] [place] AMERICACreatinine and Glomerular filtration rate.predicted panel (S/P/Bld)90 mL/min/1.73m???Normal>=60[facility] on above:Order Comment: Specimen Type: BLOOD SPECIMEN Ordering Facility: [facility] Address: [address] [place], [place] [address]Result Comment: Estimated Glomerular Filtration Rate (eGFR) is calculated using the 2020 CKD-EPI cre atinine equation. This equation utilizes serum creatinine, sex, and age as parameters. The creatinine assay has traceable calibration to isotope dilution- mass spectrometry. Refer to KDIGO guidelines for clinical interpretation. In patients with unstable renal function, e.g. those with acute kidney injury, the eGFR may not accurately reflect actual GFR.Performed By: #### 2857-1 #### [facility] CLIA [id number] [address] [place] [address] [place] AMERICAGlucose [Mass/Vol]119 mg/kNEfty75-38 [facility] on above:Order Comment: Specimen Type: BLOOD SPECIMEN Ordering Facility: [facility] Address: [address] [place], [place] [address]Result Comment: The [place] Diabetes Association (ADA) provides guidance for cutoff [...] Standards of Medical Care in Diabetes 2016, [place] Diabetes Association. Diabetes Care. 2016.39(Suppl 1).Performed By: #### 2857-1 #### [facility] CLIA [id number] [address] [place] [address] [place] AMERICAPotassium [Moles/Vol]4.8 mmol/L Normal3.7-5.1CSt. [facility] on above:Order Comment: Specimen Type: BLOOD SPECIMEN Ordering Facility: [facility] Address: [address] [place], [place] [address]Performed By: #### 2857-1 #### [facility] CLIA [id number] [address] [place] [address] [place] AMERICAProtein [Mass/Vol]6.3 g/dLNormal 6.3-8.0[facility] on above:Order Comment: Specimen Type: BLOOD SPECIMEN Ordering Facility: [facility] Address: [address] [place], [place] [address]Performed By: #### 2857-1 #### [facility] CLIA [id number] [address] [place] [address] [place] AMERICASodium [Moles/Vol]137 mmol/LNormal 136-144[facility] on above:Order Comment: Specimen Type: BLOOD SPECIMEN Ordering Facility: [facility] Address: [address] [place], [place] [address]Performed By: #### 2857-1 #### [facility] CLIA [id number] [address] [place] [address] [place] AMERICAUrea nitrogen [Mass/Vol]14 mg/dL Normal9-24[facility] on above:Order Comment: Specimen Type: BLOOD SPECIMEN Ordering Facility: [facility] Address: [address] [place], [place] [address]Performed By: #### 2857-1 #### [facility] CLIA [id number] [address] [place] [address] [place] AMERICAEosinophils/100 WBC Auto (Bld)on 75-83-9624Lvjybbzecjl/100 WBC (Bld)Automated eosinophil %[facility] HospitalErythrocyte distribution width Auto (RBC) [Ratio]on 08-01-2024 Erythrocyte distribution width (RBC) [Ratio]Erythrocyte distribution width [Ratio] by Automated count11.5-15.0[facility] HospitalHematocrit Auto (Bld) [Volume fraction]on 89-77-1976Bxdrlvscor (Bld) [Volume fraction] Hematocrit [Volume Fraction] of Blood by Automated srqbrZzc06.0-51.0[facility] HospitalHemoglobin [Mass/volume] in Bloodon 46-10-8696Icfpzvhcio (Bld) [Mass/Vol]Hemoglobin [Mass/volume] in OxtsjIgv55.0-17.0[facility] HospitalLaboratory - Chemistry and Chemistry - challengeon 08-01-2024 Albumin [Mass/Vol]4.2 g/dL3.9-4.9[facility] HospitalALP [Catalytic activity/Vol]75 U/R05-369XmlfnjirrOhiohealth Van Wert HospitalALT [Catalytic activity/Vol]17 U/M34-99UfrgkjagsOhiohealth Van Wert HospitalAST [Catalytic activity/Vol]17 U/C89-20HctgvfjfxOhiohealth Van Wert HospitalBilirubin [Mass/Vol]0.6 mg/dL0.2-1.3FMetroHealth Main Campus Medical CenterCalcium [Mass/Vol]10.3 mg/dLHigh 8.5-10.2FMetroHealth Main Campus Medical CenterChloride [Moles/Vol]100 mmol/L98-107 [facility] HospitalCO2 [Moles/Vol]26 mmol/M19-39QubwfuqytOhiohealth Van Wert HospitalCreatinine [Mass/Vol]0.81 mg/dL0.73-1.22[facility] HospitalGlucose [Mass/Vol]119 mg/dONwoe13-01MrarmlexaOhiohealth Van Wert HospitalComment on above:The [place] Diabetes Association (ADA) provides guidance for cutoff [...] hyperglycemia or hyperglycemic crisis, random plasma glucose resultsgreater than or equal to 200 mg/dL meet the criteria for diagnosis of diabetes.Reference: Standardsof Medical Care in Diabetes 2016, [place] Diabetes Association. Diabetes Care. 2016.39(Suppl 1).Potassium [Moles/Vol]4.8 mmol/L 3.7-5.1FAshtabula General Hospitalodium [Moles/Vol]137 mmol/U805-049 [facility] HospitalUrea nitrogen [Mass/Vol]14 mg/dL9-24[facility] HospitalLaboratory - Hematology and Cell countson 08-01-2024 Eosinophils (Bld) [#/Vol]0.50 10*3/uLHigh<0.46[facility] Immature granulocytes (Bld) [#/Vol]0.04 10*3/uL<0.10[facility] HospitalImmature granulocytes/100 WBC (Bld)0.7 %[facility] Leukocytes [#/volume] corrected for nucleated erythrocytes in Blood by Automated counon 16-20-5821XUS corrected for nucl RBC Auto (Bld) [#/Vol]Leukocytes [#/volume] corrected for nucleated erythrocytes in Blood by Automated coun 3.70-11.00[facility] HospitalLymphocytes Auto (Bld) [#/Vol]on 68-74-9713Cqijyncyihx (Bld) [#/Vol]Lymphocytes [#/volume] in Blood by Automated count1.00-4.00[facility] HospitalLymphocytes/100 WBC Auto (Bld)on 82-76-6252Hhisrjjzrnp/100 WBC (Bld)Lymphocytes/100 leukocytes in Blood by Automated countMetroHealth Main Campus Medical CenterH Auto (RBC) [Entitic mass]on 00-49-1982AYY (RBC) [Entitic mass]MCH [Entitic mass] by Automated count26.0-34.0 [facility] HospitalMCHC Auto (RBC) [Mass/Vol]on 24-30-0150RYRP (RBC) [Mass/Vol]MCHC [Mass/volume] by Automated count30.5-36.0[facility] HospitalMCV Auto (RBC) [Entitic vol]on 74-45-0642KML (RBC) [Entitic vol] MCV [Entitic volume] by Automated count80.0-100.0[facility] HospitalMonocytes Auto (Bld) [#/Vol]on 54-20-8825Ovqhnmamk (Bld) [#/Vol]Automated blood monocyte count<0.87[facility] HospitalMonocytes/100 WBC Auto (Bld)on 10-33-1867Zlcdsbaqr/100 WBC (Bld)Automated monocyte %[facility] HospitalNeutrophils Auto (Bld) [#/Vol]on 71-93-8356Mzlkdtdecij (Bld) [#/Vol]Neutrophils [#/volume] in Blood by Automated count1.45-7.50[facility] HospitalNeutrophils/100 WBC Auto (Bld)on 08-01-2024 Neutrophils/100 WBC (Bld)Automated neutrophil %[facility] No Panel Informationon 55-39-4131Yxoaafdzk GFR (CKD-EPI)90 mL/min/1.73m???>=60 [facility] HospitalComment on above:Estimated Glomerular Filtration Rate (eGFR) is calculated using the 2020 CKD-EPI creatinine equation. This equation utilizes serum creatinine, sex, and age as parameters. The creatinine assay has traceable calibration to isotope dilution-mass spectrometry. Refer to KDIGO guidelines for clinical interpretation. In patients with unstable renal function, e.g. those with acute kidney injury, the eGFRmay not accurately reflect actual GFR.Prostate Specific Antigen0.19 ng/mL<2.60 [facility] HospitalComment on above:Total PSA test methodology used is the Electrochemiluminescence Immunoassay by [employer]. Total PSA values by differing methodologies cannot be interchanged.Nucleated RBC Auto (Bld) [#/Vol]on 94-75-1476Vosjhsfgl RBC (Bld) [#/Vol]Nucleated erythrocytes [#/volume] in Blood by Automated count<0.01[facility] Nucleated erythrocytes [Presence] in Blood by Automated counton 08-01-2024 Nucleated RBC Auto Ql (Bld)Nucleated erythrocytes [Presence] in Blood by Automated countOhiohealth Van Wert HospitalPROSTATE-SPECIFIC ANTIGEN DIAGNOSTICon 93-94-1016Vhrzmojq specific Ag [Mass/Vol]0.19 ng/mLNINF - 2.60 ng/mLCmercy health defiance hospital ClinicComment on above:Total PSA test methodology used is the Electrochemiluminescence Immunoassay by [employer]. Total PSA values by differing methodologies cannot be interchanged.PSA SerPl-mCncon 08-01-2024 Prostate specific Ag [Mass/Vol]0.19 ng/mLNormal<2.60[facility] Comment on above:Order Comment: Specimen Type: BLOOD SPECIMEN Ordering Facility: [facility] Address: [address] [place], [place] [address]Result Comment: Total PSA test methodology used is the Electrochemiluminescence Immunoassay by [employer]. Total PSA values by differing methodologies cannot be interchanged. Performed By: #### 59678-8 #### [facility] CLIA [id number] [address] [place] [address]94[address]Lbyagwdb mean volume Auto (Bld) [Entitic vol]on 08-01-2024 Platelet mean volume (Bld) [Entitic vol]Platelet mean volume [Entitic volume] in Blood by Automated count9.0-12.7FMetroHealth Main Campus Medical CenterPlatelets Auto (Bld) [#/Vol]on 80-88-6136Cnkgasfdf (Bld) [#/Vol]Platelets [#/volume] in Blood by Automated wtepm135-610GrdzwsldkOhiohealth Van Wert HospitalProstate specific Ag [Mass/Vol]on 83-71-5376Kqahvyqfdnlfmm and review of laboratory resultsNormal [facility] ClinicProtein [Mass/volume] in Serum or Plasmaon 95-16-3718Rjdjayd [Mass/Vol]Protein [Mass/volume] in Serum or Plasma6.3-8.0 [facility] HospitalRBC Auto (Bld) [#/Vol]on 18-87-7448JVV (Bld) [#/Vol]Erythrocytes [#/volume] in Blood by Automated countLow4.20-6.00[facility] Medical Centererum or plasma anion gap determinationon 96-64-7776Sierr gap [Moles/Vol]Serum or plasma anion gap determination8-15[facility] HospitalCNPNon 35-82-9000NUYTBzsjqfrtv (LABSAN) PABLO FELIX ([id number]) 1945 M Date Time Provider Department 07/25/24 [...] Date Reviewed: 02/02/2024 Reviewed by: Lynne Rajan APRN.[employer] - Fully Assessed Reason for Visit: Lab Orders [1688] Primary Visit Diagnosis:Malignant neoplasm of prostate (HCC) [C61] Order(s):COMPLETE BLOOD COUNT AND DIFFERENTIAL [SQCBCDIF] Order #: [id number] FUTURE COMPREHENSIVE METABOLIC PANEL [SQCMP] Order #: [id number] FUTURE PROSTATE-SPECIFIC ANTIGEN DIAGNOSTIC [SQPSA] Order #: [id number] FUTURE Prescriptions as of 10/16/2024 - enzalutamide (XTANDI) 40 mg tablet Take 4 tablets (160 mg) by mouth once daily. - Calcium Citrate-Vitamin D3 200 mg-6.25 mcg (250 unit) tab Take 2 tablets by mouth once daily. - metoprolol succinate ER (TOPROL XL) 25 mg 24 hr tablet Take by mouth. - Rhglrgcippijt-Vsxbmjpz-Sfelkv (MULTIVITAMIN 50 PLUS) tab Take 1 tablet by mouth once daily. - GLIMEPIRIDE ORAL Take 0.5 mg by mouth once daily. - metFORMIN (GLUCOPHAGE) 1,000 mg tablet Take 1,000 mg by mouth once daily. - atorvastatin (LIPITOR) 40 mg tablet Take 40 mg by mouth once daily. - lisinopril-hydrochlorothiazide (PRINZIDE,ZESTORETIC) 20-12.5 mg per tablet Take 1 tablet by mouth once daily. - aspirin, enteric coated (ASPIRIN, ENTERIC COATED) 81 mg EC tablet Take 81 mg by mouth once daily. Problem List As Of Date 07/25/2024 Noted Resolved Malignant neoplasm of prostate (HCC) [C61] 08/06/2014 Encounter Status:Closed by JOSEMANUEL BLANCHARD on 10/16/24[facility] HospitalAmbulatory Visit Summaryon 78-06-3458Kwuvgkogwo Visit SummaryAmbulatory Visit Summary PABLO FELIX :1945 Visit Date:04/19/2024 [...] enzalutamide (Xtandi 80 mg oral tablet) glimepiride hydrochlorothiazide-lisinopril (hydrochlorothiazide-lisinopril 12.5 mg-20 mg Tab) ipratropium nasal (ipratropium Nasal 0.06% [place]) metformin (metformin 1000 mg oral tablet) metoprolol [...] Anthony SCRUGGS MD Where: [facility] [address] [place] [address]- You Need to Schedule the Following Appointments Follow Up with Anthony SCRUGGS MD, URL When: Where: [address] [place] [address]- Medications What How Much When Instructions Unchanged [...] prescribing physician if questions or concerns Unchanged hydrochlorothiazide-lisinopril (hydrochlorothiazide-lisinopril 12.5 mg-20 mg Tab) 1 Tablets By Mouth Every day Contact prescribing physician if questions or concerns Unchanged ipratropium nasal (ipratropium Nasal 0.06% [place]) Contact prescribing physician if questions or concerns Unchanged metformin (metformin 1000 mg oral tablet) By Mouth 2 times a day Contact prescribing physician if questions or concerns Unchanged metoprolol (metoprolol 25 mg ER Tab) 1 Tablets By Mouth 2 times a day Contact prescribingphysician if questions or concerns Medications and Immunizations [...] urine. ? Trouble st (more content not included)...[facility] Urology Office/Clinic Noteon 26-63-7829Humxmnk Office/Clinic NoteUrology Office/Clinic Note Chief Complaint rising PSA following [...] qd and Xgeva q3mos. Last seen by [facility] oncology 02/02/24. Plan at that time was [...] Information KAEL JAMES, Anthony Lee, URL [address] [place] [address]- Additional Instructions: 6 mos w/ PSA and [...] atorvastatin 40 mg Tab glimepiride, Oral, Daily hydrochlorothiazide-lisinopril (more content not included)...[facility] CenterComment on above:Result Comment: Electronically Signed By: Anthony SCRUGGS MD\.br\Date and Time Signed: 04/19/24 08:47 EDT\.br\Electronically Co-Signed By: Olamide Ureña.br\Date and Time Co-Signed: 04/19/2408:45 EDTBasophils Auto (Bld) [#/Vol]on 17-39-8825Suynaaxnm (Bld) [#/Vol]0.04 10*3/uL <0.11[facility] HospitalBasophils/100 WBC Auto (Bld)on 01-25-2024 Basophils/100 WBC (Bld)0.6 %[facility] HospitalBlood manual differential comment interpretation narrativeon 33-52-0690Zfltva differential comment [place] (Bld) [Interp]AutoOhiohealth Van Wert HospitalEosinophils/100 WBC Auto (Bld)on 45-07-6433Ydvnvpxryeg/100 WBC (Bld)5.9 %[facility] HospitalErythrocyte distribution width Auto (RBC) [Ratio]on 01-25-2024 Erythrocyte distribution width (RBC) [Ratio]12.7 %11.5-15.0[facility] HospitalHematocrit Auto (Bld) [Volume fraction]on 67-83-7576Djmiqoxlht (Bld) [Volume fraction]34.6 %Low39.0-51.0[facility] Hemoglobin [Mass/volume] in Bloodon 31-97-1751Mveqyyghfk (Bld) [Mass/Vol]11.8 g/dLLow13.0-17.0[facility] HospitalLaboratory - Chemistry and Chemistry - challengeon 85-50-6220Tfgsyrp [Mass/Vol]4.0 g/dL3.9-4.9[facility] HospitalALP [Catalytic activity/Vol]74 U/B64-644QuwaaevfpOhiohealth Van Wert HospitalALT [Catalytic activity/Vol]18 U/P23-32GqkvxfouuOhiohealth Van Wert HospitalAST [Catalytic activity/Vol]19 U/T93-07LwdwsfsnyOhiohealth Van Wert HospitalBilirubin [Mass/Vol]0.7 mg/dL0.2-1.3FMetroHealth Main Campus Medical Center Calcium [Mass/Vol]9.9 mg/dL8.5-10.2FMetroHealth Main Campus Medical CenterChloride [Moles/Vol]103 mmol/Z85-809YccsdppawOhiohealth Van Wert HospitalCO2 [Moles/Vol]25 mmol/D53-87JtkesxptxOhiohealth Van Wert HospitalCreatinine [Mass/Vol]0.79 mg/dL 0.73-1.22[facility] HospitalGlucose [Mass/Vol]112 mg/vWHvdo51-42 [facility] HospitalComment on above:The [place] Diabetes Association (ADA) provides guidance for cutoff [...] hyperglycemia or hyperglycemic crisis, random plasma glucose resultsgreater than or equal to 200 mg/dL meet the criteria for diagnosis of diabetes.Reference: Standardsof Medical Care in Diabetes 2016, [place] [employer]. Diabetes Care. 2016.39(Suppl 1). Potassium [Moles/Vol]5.2 mmol/LHigh3.7-5.1FMetroHealth Main Campus Medical Center Sodium [Moles/Vol]137 mmol/Q525-241HhqyyauscOhiohealth Van Wert HospitalUrea nitrogen [Mass/Vol]15 mg/dL9-24[facility] HospitalLaboratory - Hematology and Cell countson 82-34-1396Udupbkwdoks (Bld) [#/Vol]0.40 10*3/uL <0.46[facility] HospitalImmature granulocytes (Bld) [#/Vol]0.07 10*3/uL<0.10[facility] HospitalImmature granulocytes/100 WBC (Bld) 1.0 %[facility] HospitalLeukocytes [#/volume] corrected for nucleated erythrocytes in Blood by Automated counon 30-31-6393CHL corrected for nucl RBC Auto (Bld) [#/Vol]6.80 k/uL3.70-11.00[facility] Lymphocytes Auto (Bld) [#/Vol]on 10-66-2220Pqkniuffhhx (Bld) [#/Vol]2.16 10*3/uL 1.00-4.00[facility] HospitalLymphocytes/100 WBC Auto (Bld)on 84-11-4389Osxrmpfmmgs/100 WBC (Bld)31.8 %[facility] Campus Medical CenterH Auto (RBC) [Entitic mass]on 79-65-2524JFR (RBC) [Entitic mass]32.2 pg26.0-34.0 [facility] HospitalMCHC Auto (RBC) [Mass/Vol]on 29-14-4552[place] (RBC) [Mass/Vol]34.1 g/dL30.5-36.0[facility] HospitalMCV Auto (RBC) [Entitic vol]on 10-30-5217UYE (RBC) [Entitic vol]94.3 fL80.0-100.0 [facility] HospitalMonocytes Auto (Bld) [#/Vol]on 01-25-2024 Monocytes (Bld) [#/Vol]0.60 10*3/uL<0.87[facility] Monocytes/100 WBC Auto (Bld)on 19-57-0198Iogcqbnzt/100 WBC (Bld)8.8 %[facility] HospitalNeutrophils Auto (Bld) [#/Vol]on 73-38-2331Paikdvbubut (Bld) [#/Vol]3.53 10*3/uL1.45-7.50[facility] Neutrophils/100 WBC Auto (Bld)on 86-46-3515Iirpvmmbqcw/100 WBC (Bld)51.9 % [facility] HospitalNo Panel Informationon 85-58-2928Bdfmeipuc GFR (CKD-EPI)91 mL/min/1.73m???>=60[facility] HospitalComment on above:Estimated Glomerular Filtration Rate (eGFR) is calculated using the 2020 CKD-EPI creatinine equation. This equation utilizes serum creatinine, sex, and age as parameters. The creatinine assay has traceable calibration to isotope dilution-mass spectrometry. Refer to KDIGO guidelines for clinical inte rpretation. In patients with unstable renal function, e.g. those with acute kidney injury, the eGFRmay not accurately reflect actual GFR.Prostate Specific Antigen0.15 ng/mL<2.60[facility] HospitalComment on above:Total PSA test methodology used is the Electrochemiluminescence Immunoassay by [employer]. Total PSA values by differing methodologies cannot be interchanged. Nucleated RBC Auto (Bld) [#/Vol]on 38-20-4253Zdaqxfhbz RBC (Bld) [#/Vol]10*3/uL <0.01[facility] HospitalNucleated erythrocytes [Presence] in Blood by Automated counton 87-75-3442Qyhtloisa RBC Auto Ql (Bld)0.0 /100{WBC} [facility] HospitalPlatelet mean volume Auto (Bld) [Entitic vol]on 82-85-4948Sfjwmnqt mean volume (Bld) [Entitic vol]10.3 fL9.0-12.7FMetroHealth Main Campus Medical CenterPlatelets Auto (Bld) [#/Vol]on 12-70-0343Orgkplsgn (Bld) [#/Vol]184 10*3/xV848-134CwidnpcebOhiohealth Van Wert HospitalProtein [Mass/volume] in Serum or Plasmaon 03-80-8656Naoevuz [Mass/Vol]6.6 g/dL6.3-8.0[facility] HospitalRBC Auto (Bld) [#/Vol]on 38-53-7691JWL (Bld) [#/Vol]3.67 10*6/uLLow4.20-6.00[facility] Medical Centererum or plasma anion gap determinationon 91-32-2786Msfse gap [Moles/Vol]9 mmol/L8-[facility] HospitalBasophils Auto (Bld) [#/Vol]on 01-52-3466Luavvthmi (Bld) [#/Vol] 0.04 10*3/uL<0.11[facility] HospitalBasophils/100 WBC Auto (Bld)on 51-53-3554Emwjnkevi/100 WBC (Bld)0.5 %[facility] HospitalBlood manual differential comment interpretation narrativeon 57-34-9215Tfmvee differential comment [place] (Bld) [Interp]AutoOhiohealth Van Wert Hospital Eosinophils/100 WBC Auto (Bld)on 63-36-4996Kghupoyjtsn/100 WBC (Bld)4.3 % [facility] HospitalErythrocyte distribution width Auto (RBC) [Ratio]on 65-62-4201Sxgdsdfslpx distribution width (RBC) [Ratio]12.8 %11.5-15.0 [facility] HospitalHematocrit Auto (Bld) [Volume fraction]on 32-20-9008Nxmuvshpcu (Bld) [Volume fraction]35.8 %39.0-51.0[facility] HospitalHemoglobin [Mass/volume] in Bloodon 81-35-8868Fedcfpzope (Bld) [Mass/Vol]12.2 g/dL13.0-17.0[facility] HospitalLaboratory - Chemistry and Chemistry - challengeon 03-59-0171Bbgfdsm [Mass/Vol]4.1 g/dL 3.9-4.9[facility] HospitalALP [Catalytic activity/Vol]75 U/L38-113 [facility] HospitalALT [Catalytic activity/Vol]16 U/L10-54 [facility] HospitalAST [Catalytic activity/Vol]16 U/L14-40 [facility] HospitalBilirubin [Mass/Vol]0.7 mg/dL0.2-1.3FMetroHealth Main Campus Medical CenterCalcium [Mass/Vol]9.8 mg/dL8.5-10.2FMetroHealth Main Campus Medical CenterChloride [Moles/Vol]103 mmol/I38-878BxtwmigwuOhiohealth Van Wert HospitalCO2 [Moles/Vol]24 mmol/C77-15ZayprfquzOhiohealth Van Wert HospitalCreatinine [Mass/Vol]0.88 mg/dL0.73-1.22[facility] HospitalGlucose [Mass/Vol] 128 mg/bD61-45EbbqiqmbhOhiohealth Van Wert HospitalComment on above:The [place] Diabetes Association (ADA) provides guidance for cutoff [...] hyperglycemia or hyperglycemic crisis, random plasma glucose resultsgreater than or equal to 200 mg/dL meet the criteria for diagnosis of diabetes.Reference: [employer] in Diabetes 2016, [place] [employer]. Diabetes Care. 2016.39(Suppl 1). Potassium [Moles/Vol]4.8 mmol/L3.7-5.1FAshtabula General Hospitalodium [Moles/Vol]140 mmol/A678-861EqgduyjmsOhiohealth Van Wert HospitalUrea nitrogen [Mass/Vol]18 mg/dL9-24[facility] HospitalLaboratory - Hematology and Cell countson 15-61-6267Oluqlvetxsk (Bld) [#/Vol]0.35 10*3/uL<0.46[facility] HospitalImmature granulocytes (Bld) [#/Vol]0.04 10*3/uL<0.10 [facility] HospitalImmature granulocytes/100 WBC (Bld)0.5 % [facility] HospitalLeukocytes [#/volume] corrected for nucleated erythrocytes in Blood by Automated counon 85-57-9045IBP corrected for nucl RBC Auto (Bld) [#/Vol]8.19 k/uL3.70-11.00[facility] Lymphocytes Auto (Bld) [#/Vol]on 27-54-4721Xvwpsnfxpxh (Bld) [#/Vol]1.36 10*3/uL 1.00-4.00[facility] HospitalLymphocytes/100 WBC Auto (Bld)on 60-55-0844Ezkewdzptrs/100 WBC (Bld)16.6 %[facility] Medical CenterH Auto (RBC) [Entitic mass]on 82-72-9485HQG (RBC) [Entitic mass]31.3 pg26.0-34.0 [facility] HospitalMCHC Auto (RBC) [Mass/Vol]on 68-91-5732PVLR (RBC) [Mass/Vol]34.1 g/dL30.5-36.0[facility] HospitalMCV Auto (RBC) [Entitic vol]on 62-15-5453ZYU (RBC) [Entitic vol]91.8 fL80.0-100.0 [facility] HospitalMonocytes Auto (Bld) [#/Vol]on 10-30-2023 Monocytes (Bld) [#/Vol]0.62 10*3/uL<0.87[facility] Monocytes/100 WBC Auto (Bld)on 79-75-1720Zsrzvwlhy/100 WBC (Bld)7.6 %[facility] HospitalNeutrophils Auto (Bld) [#/Vol]on 30-27-6793Ieurazaryca (Bld) [#/Vol]5.78 10*3/uL1.45-7.50[facility] Neutrophils/100 WBC Auto (Bld)on 16-95-0595Fhslxzkftro/100 WBC (Bld)70.5 % [facility] HospitalNo Panel Informationon 79-72-1873Draqhiuwt GFR (CKD-EPI)89 mL/min/1.73m???>=60[facility] HospitalComment on above:Estimated Glomerular Filtration Rate (eGFR) is calculated using the 2020 CKD-EPI creatinine equation. This equation utilizes serum creatinine, sex, and age as parameters. The creatinine assay has traceable calibration to isotope dilution-mass spectrometry. Refer to KDIGO guidelines for clinical inte rpretation. In patients with unstable renal function, e.g. those with acute kidney injury, the eGFRmay not accurately reflect actual GFR.Prostate Specific Antigen0.16 ng/mL<2.60[facility] HospitalComment on above:Total PSA test methodology used is the Electrochemiluminescence Immunoassay by [employer]. Total PSA values by differing methodologies cannot be interchanged. Testosterone Level78 ng/nC056-569RgdknzhxgOhiohealth Van Wert HospitalComment on above:A testosterone level in the 193-320 ng/dL range with associated clinical symptoms is considered lowand may indicate hypogonadism (from [facility] 2009 363:123- [phone]). Results >320 ng/dL are considered normal.Result rechecked.Nucleated RBC Auto (Bld) [#/Vol]on 59-88-4701Fjbwulany RBC (Bld) [#/Vol]10*3/uL<0.01[facility] HospitalNucleated erythrocytes [Presence] in Blood by Automated counton 41-78-9812Lamjybtrr RBC Auto Ql (Bld)0.0 /100{WBC}[facility] HospitalPlatelet mean volume Auto (Bld) [Entitic vol]on 84-24-1899Wwtpfnzd mean volume (Bld) [Entitic vol]9.5 fL9.0-12.7FMetroHealth Main Campus Medical Center Platelets Auto (Bld) [#/Vol]on 11-14-2851Pycrwaqkp (Bld) [#/Vol]192 10*3/uL 150-400[facility] HospitalProtein [Mass/volume] in Serum or Plasma on 71-69-7373Iwlekzu [Mass/Vol]6.5 g/dL6.3-8.0[facility] RBC Auto (Bld) [#/Vol]on 37-22-6547XZB (Bld) [#/Vol]3.90 10*6/uL4.20-6.[address] [facility] Medical Centererum or plasma anion gap determinationon 01-31-3156Ozyui gap [Moles/Vol]13 mmol/L9-18FMetroHealth Main Campus Medical CenterNo Panel Informationon 14-00-2812Rdfdbuay Specific Antigen Total<0.13 ng/mL<=4.00 [facility] HospitalNo Panel Informationon 55-70-9232BMOM HealthcareType of biopsy: tangential Informed consent: discussed and [...] taken yes Amount of lidocaine used: 0.5 [facility] CenterGLYCOHEMOGLOBIN A1Con 99-43-0462HAB RECOMMENDATIONSEE BELOWSelect Medical Specialty Hospital - Cleveland-FairhillComment on above:Result Comment: ADA RECOMMENDED LIMIT 4.0 - 6.0 ADA THERAPEUTIC TARGET < 7.0 ACTION SUGGESTED > 7.0Performed By: #### DATA1C #### [facility] [address] [place] [address] Dr. Bharati AguiarGlucose [Mass/Vol]131 mg/dLNoAvita Health System Galion HospitalComment on above:Performed By: #### DATA1C #### [facility] [address] [address] [address] Bharati AguiarHbA1c (Bld) [Mass fraction]6.2 %Normal4.5-6.2The [facility]aritan HospitalComment on above:Performed By: #### DATA1C #### [facility] [address] [address] [address] Bharati AguiarXR CSPINE OBL FLEX_EXTon 78-59-4766JE CSPINE OBL FLEX_EXT EXAMINATION: XR CSPINE OBL [...] Electronically authenticated by: CYNTHIA TORRES Date: 2022-07-21 15:52[facility]-FairhillGLYCOHEMOGLOBIN A1Con 76-49-6183EXS RECOMMENDATIONSEE BELOW NormalThe [facility]itan HospitalComment on above:Result Comment: ADA RECOMMENDED LIMIT 4.0 - 6.0 ADA THERAPEUTIC TARGET < 7.0 ACTION SUGGESTED > 7.0Performed By: #### DATA1C #### [facility] [address] [place] [address] Dr. Bharati AguiarGlucose [Mass/Vol]134 mg/dLNoAvita Health System Galion HospitalComment on above:Performed By: #### DATA1C #### [facility] [address] [place] [address] Dr. Bharati AguiarHbA1c (Bld) [Mass fraction]6.3 %Critically high4.5-6.2The [facility]itan HospitalComment on above:Performed By: #### DATA1C #### [facility] [address] [place] [address] Dr. Calabrese ChangECHOCARDIO M/2D COMPLETEon 86-18-1779UUIHUXZNQM M/2D COMPLETE Patient: PABLO FELIX Exam Date: 04/27/2022 : 1945 Gender:M Ordering : LORA ENGLISH Admission #: [id number] Family : DR JAMAR FALL D.O. Order #: [id number] CLICK HERE TO VIEW EXAM ECHOCARDIOGRAM REPORT [...] by: Faizan Carreon M.D. on 04/28/2022 at 19:09[facility]-FairhillGLYCOHEMOGLOBIN A1Con 67-71-1322XFS RECOMMENDATIONSEE Genesis HospitalComment on above:Result Comment: ADA RECOMMENDED LIMIT 4.0 - 6.0 ADA THERAPEUTIC TARGET < 7.0 ACTION SUGGESTED > 7.0Performed By: #### DATA1C ####[facility] [address] [address]DrJunior AguiarGlucose [Mass/Vol]137 mg/dLSelect Medical Specialty Hospital - [facility] Comment on above:Performed By: #### DATA1C ####[facility] [address] [address]Dr. Bharati AguiarHbA1c (Bld) [Mass fraction] 6.4 %Critically high4.5-6.2The [facility]aritan HospitalComment on above:Performed By: #### DATA1C ####[facility] [address] [address]Dr. Bharati Muro BONE SC WH BODYon 31-31-7789EQ BONE SC BODYWHOLE BODY RADIONUCLIDE BONE SCAN: COMPARISON: CT of the chest, abdomen, and pelvis dated 11/05/2021 HISTORY: Prostate carcinoma TRACER DOSE: 25.0 mCi of technetium-99m MDP. FINDINGS: Fairly prominent tracer uptake is seen at the lesser trochanter of the left hip. This is suspicious for metastasis, although it was not obviously included in the cdtgk-zi-gehb of the recent CT. There are foci [...] authenticated by: FEDE DE JESUS Date: 2021-11-06 12:45Normal [facility] CHEST W CONon 09-03-2656YX CHEST W CONClinical Indication: Primary malignant neoplasm of prostate Comparison: [...] Electronically authenticated by: LUIZ UMANA Date: 2021-11-05 14:08[facility]-FairhillPROF 14(COMP METB)on 86-03-6012Mstcngl [Mass/Vol]3.6 g/dLNormal 3.4-5.0The [facility] on above:Performed By: #### CMP #### [facility] [address] [place] [address] Dr. Bharati AguiarAlbumin/Globulin [Mass ratio]1.1 {ratio}NormalThe [facility] on above:Performed By: #### CMP #### [facility] [address] [place] [address] Dr. Bharati Romero [Catalytic activity/Vol]89 U/NDoyneg34-235Avo [facility] on above:Performed By: #### CMP #### [facility] [address] [place] [address] Dr. Bharati Burnette [Catalytic activity/Vol]33 U/RQvfvok18-50Zhc Morton HospitalComment on above:Performed By: #### CMP #### [facility] [address] [address] [address] Bharati Marcos gap [Moles/Vol]12.1 mmol/LNormalThe [facility] Comment on above:Performed By: #### CMP #### [facility] [address] [address] [address] Bharati AguiarAST [Catalytic activity/Vol]19 U/CMjditt85-39Flc [facility] HospitalComment on above:Performed By: #### CMP #### [facility] [address] [address] [address] Bharati AguiarBilirubin [Mass/Vol]0.9 mg/dLNormal0.2-1.3TSt. Rita's Hospital Comment on above:Performed By: #### CMP #### [facility] [address] [address] [address] Bharati AguiarCalcium [Mass/Vol]8.8 mg/dLNormal8.5-10.1The [facility] Comment on above:Performed By: #### CMP #### [facility] [address] [address] [address] Bharati AguiarChloride [Moles/Vol]103 mmol/HWrdnzl05-031Ovi [facility] Comment on above:Performed By: #### CMP #### [facility] [address] [address] [address] Bharati AguiarCO2 [Moles/Vol]28.6 mmol/ZRfsyng12.0-30.0The [facility] Comment on above:Performed By: #### CMP #### [facility] [address] [address] [address] Bharati AguiarCreatinine [Mass/Vol]0.85 mg/dLNormal0.66-1.25The [facility] HospitalComment on above:Performed By: #### CMP #### [facility] [address] [address] [address] Calabrese ChangEGFR-AF JORDANIAN>60Normal>=60The [facility] HospitalComment on above:Performed By: #### CMP #### [facility] [address] [address] [address] Bharati MarshGFR-NON AF JORDANIAN>60Normal>=60The [facility] HospitalComment on above:Performed By: #### CMP #### [facility] [address] [address] [address] Bharati AguiarGlobulin (S) [Mass/Vol]3.4 g/dLNormMagruder Memorial HospitalComment on above:Performed By: #### CMP #### [facility] [address] [address] [address] Bharati AguiarGlucose [Mass/Vol]127 mg/dLCritically ydjv45-663Oun [facility] HospitalComment on above:Performed By: #### CMP #### [facility] [address] [place] [address] Dr. Bharati AguiarPotassium [Moles/Vol]4.7 mmol/LNormal3.4-5.0The [facility] Comment on above:Performed By: #### CMP #### [facility] [address] [place] [address] Dr. Bharati AguiarProtein [Mass/Vol]7.0 g/dLNormal6.1-8.2The [facility] Comment on above:Performed By: #### CMP #### [facility] [address] [place] [address] Dr. Bharati AguiarSodium [Moles/Vol]139 mmol/DWygxkk417-332Eal [facility] Comment on above:Performed By: #### CMP #### [facility] [address] [place] [address] Dr. Bharati AguiarUrea nitrogen [Mass/Vol]18.0 mg/dLNormal7.0-18.0The [facility] HospitalComment on above:Performed By: #### CMP #### [facility] [address] [place] [address] Dr. Bharati AguiarUrea nitrogen/Creatinine [Mass ratio]21.2 mg/mgNormalThGeorgetown Behavioral HospitalComment on above:Performed By: #### CMP #### [facility] [address] [place], [place] [id number] Dr. Bharati Aguiar Vital Signs Date TimeVital SignValuePerforming SntcowxluGurepkkv33-97-2144 09:27-0400Body hobhcy675.91 cmBenjamin Ball DO Work Phone: [facility]10-16-2025 09:27-0400 Body mass index (BMI) [Ratio]32.7 kg/d5Brdayeyz Ball DO Work Phone: [phone]10-16-2025 09:27-0400 Body xhexpe54.44 kgBenjamin Ball DO Work Phone: [phone] [place], [place] [address]210-16-2025 09:27-0400 Diastolic blood mzktcmye92 mm[Hg]Jamar Ball DO Work Phone: [phone]10-16-2025 09:27-0400 Heart rate71 /minBenjamin Ball DO Work Phone: [phone] [place], [place] [address]210-16-2025 09:27-0400 Respiratory rate12 /minBenjamin Ball DO Work Phone: [phone] [place], [place] [address]210-16-2025 09:27-0400 Systolic blood zgzrlerb192 mm[Hg]Jamar Ball DO Work Phone: [phone]02-17-2025 09:44-0500 Body pjwaan169.91 cmOhiohealth Van Wert Hospital02-17-2025 09:44-0500Body mass index (BMI) [Ratio]32.4 kg/h6LjmonlkkgOhiohealth Van Wert Hospital02-17-2025 09:44-0500Body .53 kgOhiohealth Van [facility]ert Hospital02-17-2025 09:44-0500Diastolic blood mm[Hg][facility] 09-02-2024 09:44-0500Heart rate46 /[facility] 09-02-2024 09:44-0500Respiratory rate12 /[facility] 09-02-2024 09:44-0500Systolic blood duhfduyq912 mm[Hg][facility]01-23-2025 09:07-0500Body uwkyei917.6 cmChristo Howard APRN.ASSISTANT SALES CENTER MANAGER Work Phone: [facility] [place]01-23-2025 09:07-0500Body mass index (BMI) [Ratio]33.82 kg/d5AsrzxChristo Howard APRN.ASSISTANT SALES CENTER MANAGER Work Phone: [facility] [place]01-23-2025 09:07-0500Body temperature 97.9 [degF]Christo Howard APRN.ASSISTANT SALES CENTER MANAGER Work Phone: [facility] [place]01-23-2025 09:07-0500Body iyabxj84 kg Christo Howard APRN.ASSISTANT SALES CENTER MANAGER Work Phone: [facility] [place]01-23-2025 09:07-0500Diastolic blood giyhzkbk39 mm[Hg]Christo Howard APRN.ASSISTANT SALES CENTER MANAGER Work Phone: [facility] [place]01-23-2025 09:07-0500Heart rate57 /min Christo Howard APRN.ASSISTANT SALES CENTER MANAGER Work Phone: [facility] [place]01-23-2025 09:07-0500Respiratory rate 16 /minChristo Howard APRN.ASSISTANT SALES CENTER MANAGER Work Phone: [facility] [place]01-23-2025 09:07-4817AzW0% (BldA) [Mass fraction]99 %Christo Howard APRN.ASSISTANT SALES CENTER MANAGER Work Phone: [facility] [place]01-23-2025 09:07-0500Systolic blood qzjnetev430 mm[Hg]Christo Howard APRN.ASSISTANT SALES CENTER MANAGER Work Phone: [facility] [place]11-25-2024 14:25-0500Body kauray305.91 cmOhiohealth Van Wert Hospital11-25-2024 14:25-0500Body mass index (BMI) [Ratio]32.8 kg/r2UsosrvbncOhiohealth Van Wert Hospital11-25-2024 14:25-0500Body .55 kgOhiohealth Van Wert Hospital11-25-2024 14:25-0500Diastolic blood wtduwuit49 mm[Hg][facility]11-25-2024 14:25-0500 Heart rate61 /[facility]11-25-2024 14:25-0500 Respiratory rate12 /[facility]11-25-2024 14:25-0500 Systolic blood mm[Hg][facility]10-24-2024 08:52-0400Body mass index (BMI) [Ratio]32.79 kg/n9DvrltMarco A Esqueda MD Work Phone: [facility] [place]10-24-2024 08:52-0400Body temperature 97.3 [degF]Marco A Esqueda MD Work Phone: [facility] [place]10-24-2024 08:52-0400Body fxtahb53.1 kgMarco A Esquead MD Work Phone: [facility] [place]10-24-2024 08:52-0400Diastolic blood bowcalwt15 mm[Hg]Marco A Esqueda MD Work Phone: [facility] [place]10-24-2024 08:52-0400Heart rate62 /min Marco A Esqueda MD Work Phone: [facility] [place]10-24-2024 08:52-0400Respiratory rate 16 /minMarco A Esqueda MD Work Phone: [facility] [place]10-24-2024 08:52-9932HdN0% (BldA) [Mass fraction]99 %Marco A Esqueda MD Work Phone: [facility] [place]10-24-2024 08:52-0400Systolic blood rpsjtyix114 mm[Hg]Marco A Esqueda MD Work Phone: [facility] [place]10-04-2024 08:15-0400Blood Pressure LocationAnthony SCRUGGS [facility]10-04-2024 08:15-0400Body gaeudrjphto96.6 [degF]Anthony SCRUGGS [facility]10-04-2024 08:15-0400Diastolic blood iqhssndy58 mm[Hg]Anthony SCRUGGS [facility]10-04-2024 08:15-0400Heart rate64 /minAnthony SCRUGGS [facility]10-04-2024 08:15-0400Respiratory rate17 /minAnthony SCRUGGS [facility]10-04-2024 08:15-0400Systolic blood avsonjwj209 mm[Hg]Anthony SCRUGGS [facility]09-10-2024 08:37-0400Body gnnsos659.91 cmOhiohealth Van [facility] Hospital09-10-2024 08:37-0400Body mass index (BMI) [Ratio]33 kg/o2OrlyfffaiOhiohealth Van Wert Hospital09-10-2024 08:37-0400Body cjerpr16.12 kgOhiohealth Van Wert Hospital09-10-2024 08:37-0400Diastolic blood vropvenu47 mm[Hg] [facility]09-10-2024 08:37-0400Heart rate52 /[facility]09-10-2024 08:37-0400Respiratory rate12 /[facility]09-10-2024 08:37-0400Systolic blood eupgwpqb453 mm[Hg] [facility]07-19-2024 11:06-0400Body jysjwc684.6 Dara Rajan [employer]MING MACHINE SET UP MECHANIC.ASSISTANT SALES CENTER MANAGER Work Phone: [facility] [place]07-19-2024 11:06-0400Body mass index (BMI) [Ratio]33.36 kg/r3AjwssLynne Rajan APRN.ASSISTANT SALES CENTER MANAGER Work Phone: [facility] [place]07-19-2024 11:06-0400Body temperature 97.3 [degF]Lynne Rajan ROLL [employer]MING MACHINE SET UP MECHANIC.ASSISTANT SALES CENTER MANAGER Work Phone: [facility] [place]07-19-2024 11:06-0400Body orghzw34.7 kgKalaagapito Satinder ESPINOZAN.ASSISTANT SALES CENTER MANAGER Work Phone: [facility] [place]07-19-2024 11:06-0400Diastolic blood ysiltcrk13 mm[Hg]Lynne Rajan ROLL FORMING MACHINE SET UP MECHANIC.ASSISTANT SALES CENTER MANAGER Work Phone: [facility] [place]07-19-2024 11:06-0400Heart rate52 /min Lynne Rajan ROLL [employer]MING MACHINE SET UP MECHANIC.ASSISTANT SALES CENTER MANAGER Work Phone: [facility] [place]07-19-2024 11:06-0400Respiratory rate 16 /minErniharika Rajan ROLL FORMING MACHINE SET UP MECHANIC.ASSISTANT SALES CENTER MANAGER Work Phone: [facility] [place]07-19-2024 11:06-2875HbR2% (BldA) [Mass fraction]98 %Lynne Rajan ROLL [employer]MING MACHINE SET UP MECHANIC.ASSISTANT SALES CENTER MANAGER Work Phone: [facility] [place]07-19-2024 11:06-0400Systolic blood mm[Hg]Lynne Rajan ROLL FORMING MACHINE SET UP MECHANIC.ASSISTANT SALES CENTER MANAGER Work Phone: [facility] [place]05-09-2024 08:38-0400Body tvelif545.91 cmOhiohealth Van [facility] Hospital05-09-2024 08:38-0400Body mass index (BMI) [Ratio]33.2 kg/l5OswsyssncOhiohealth Van Wert Hospital05-09-2024 08:38-0400Body ahjobs92.8 kgOhiohealth Van [facility]ert Hospital05-09-2024 08:38-0400Diastolic blood jlsusasr26 mm[Hg][facility]05-09-2024 08:38-0400 Heart rate48 /[facility]05-09-2024 08:38-0400 Respiratory rate12 /[facility]05-09-2024 08:38-0400 Systolic blood rhjugoek801 mm[Hg][facility]04-18-2024 09:14-0400Body .6 cmChristo Howard APRN.ASSISTANT SALES CENTER MANAGER Work Phone: [facility] [place]04-18-2024 09:14-0400Body temperature 97.81 [degF]Christo Howard ROLL FORMING MACHINE SET UP MECHANIC.ASSISTANT SALES CENTER MANAGER Work Phone: [facility] [place]04-18-2024 09:14-0400Body rbflit32.9 kgChristo Howard ROLL FORMING MACHINE SET UP MECHANIC.ASSISTANT SALES CENTER MANAGER Work Phone: [facility] [place]04-18-2024 09:14-0400Diastolic blood nfxebqlz29 mm[Hg]Christo Howard ROLL FORMING MACHINE SET UP MECHANIC.ASSISTANT SALES CENTER MANAGER Work Phone: [facility] [place]04-18-2024 09:14-0400Heart rate56 /min Christo Howard ROLL FORMING MACHINE SET UP MECHANIC.ASSISTANT SALES CENTER MANAGER Work Phone: [facility] [place]04-18-2024 09:14-0400Respiratory rate 16 /minChristo Howard ROLL FORMING MACHINE SET UP MECHANIC.ASSISTANT SALES CENTER MANAGER Work Phone: [facility] [place]04-18-2024 09:14-4738ClJ7% (BldA) [Mass fraction]97 %Christo Howard ROLL FORMING MACHINE SET UP MECHANIC.ASSISTANT SALES CENTER MANAGER Work Phone: [facility] [place]04-18-2024 09:14-0400Systolic blood ygrmtmzd108 mm[Hg]Christo Howard ROLL FORMING MACHINE SET UP MECHANIC.ASSISTANT SALES CENTER MANAGER Work Phone: [facility] [place]04-05-2024 09:05-0400Blood Pressure LocationPabj SCRUGGS [facility]04-05-2024 09:05-0400Diastolic blood mm[Hg]Anthony SCRUGGS [facility]04-05-2024 09:05-0400Heart rate53 /minAnthony SCRUGGS [facility]04-05-2024 09:05-0400Respiratory rate16 /minAnthony SCRUGGS [facility]04-05-2024 09:05-0400Systolic blood ybfmfuan717 mm[Hg]Anthony SCRUGGS [facility]02-27-2024 14:13-0500Body utswua476.91 [facility] 14:13-0500Body mass index (BMI) [Ratio]33.4 kg/i3OthqdzqenOhiohealth [facility]02-27-2024 14:13-0500Body uynguj93.42 kgOhio[facility]02-27-2024 14:13-0500Diastolic blood ukqkxepz32 mm[Hg] [facility]02-27-2024 14:13-0500Heart rate56 /[facility]02-27-2024 14:13-0500Respiratory rate12 /[facility]02-27-2024 14:13-0500Systolic blood ybvmphmy345 mm[Hg] [facility]02-08-2024 08:30-0500Body sdlxus950.91 cm Jamar Ball Other [employer] Other 02-08-2024 08:30-0500Body mass index (BMI) [Ratio] 34.08 kg/k8Rksollof Ball Other [employer] Other 02-08-2024 08:30-0500Body ysunos28.25 kgBenjamin Ball Other [employer] Other 02-08-2024 08:30-0500Diastolic blood delxgvrw59 mm[Hg] Jamar Ball Other [employer] Other 02-08-2024 08:30-0500Respiratory rate12 /minBenjamin Ball Other [employer] Other 02-08-2024 08:30-0500Systolic blood ugvmomkp086 mm[Hg] Jamar Ball Other [employer] Other 11-14-2023 15:00-0500Body vccalr059.91 cmBenjamin Ball Other [employer] Other 11-14-2023 15:00-0500Body mass index (BMI) [Ratio] 32.84 kg/p3Mxdmkwpa Ball Other [employer] Other 11-14-2023 15:00-0500Body choymw64.71 kgBenjamin Ball Other [employer] Other 11-14-2023 15:00-0500Diastolic blood xamdukhj23 mm[Hg] Jamar Ball Other [employer] Other 11-14-2023 15:00-0500Respiratory rate12 /minBenjamin Ball Other [employer] Other 11-14-2023 15:00-0500Systolic blood xouosabe743 mm[Hg] Jamar Ball Other [employer] Other 10-16-2023 09:45-0400Body qhbxoa373.91 cmBenjamin Ball Other [employer] Other 10-16-2023 09:45-0400Body mass index (BMI) [Ratio] 32.14 kg/q1Yiecpmpc Ball Other [employer] Other 10-16-2023 09:45-0400Body uwffow46.72 kgBenjamin Ball Other [employer] Other 10-16-2023 09:45-0400Diastolic blood mnfufjoi55 mm[Hg] Jamar Ball Other [employer] Other 10-16-2023 09:45-0400Respiratory rate12 /minBenjamin Ball Other [facility] Other 10-16-2023 09:45-0400Systolic blood twiclrye686 mm[Hg] Jamar Fall Other [employer] Other 10-12-2023 09:23-0400Diastolic blood cjelnxwt12 mm[Hg] Christo Howard APRN.ASSISTANT SALES CENTER MANAGER Work Phone: [facility] [place]10-12-2023 09:23-0400Heart rate50 /min Christo Howard APRN.ASSISTANT SALES CENTER MANAGER Work Phone: [facility] [place]10-12-2023 09:23-0400Systolic blood jqxostzk490 mm[Hg]Chritso Howard APRN.ASSISTANT SALES CENTER MANAGER Work Phone: [facility] [place]10-12-2023 09:20-0400Body awcxoa842.6 cmChristo Howrad APRN.ASSISTANT SALES CENTER MANAGER Work Phone: [facility] [place]10-12-2023 09:20-0400Body temperature 97 [degF]Christo Howard APRN.ASSISTANT SALES CENTER MANAGER Work Phone: [facility] [place]10-12-2023 09:20-0400Body ikktcn13.53 kgChristo Howard APRN.ASSISTANT SALES CENTER MANAGER Work Phone: [facility] [place]10-12-2023 09:20-0400Respiratory rate 16 /minChristo Howard APRN.ASSISTANT SALES CENTER MANAGER Work Phone: [facility] [place]10-12-2023 09:20-1439FoZ9% (BldA) [Mass fraction]100 %Christo Howard APRN.ASSISTANT SALES CENTER MANAGER Work Phone: [facility] [place]10-02-2023 08:45-0400Blood Pressure Fe SCRUGGS [facility]10-02-2023 08:45-0400Diastolic blood pjknyykh14 mm[Hg]Anthony SCRUGGS [facility]10-02-2023 08:45-0400Heart rate62 /Rema SCRUGGS [facility]10-02-2023 08:45-0400Respiratory rate16 /minAnthony SCRUGGS [facility]10-02-2023 08:45-0400Systolic blood mwfkgiok945 mm[Hg]Anthony SCRUGGS [facility]09-20-2023 13:45-0400Body sludlk509.91 cmBenjamin Ball Other [employer] Other 09-20-2023 13:45-0400Body mass index (BMI) [Ratio] 32.46 kg/z4Lgoopmwk Ball Other [employer] Other 09-20-2023 13:45-0400Body .63 kgBenjamin Ball Other [employer] Other 09-20-2023 13:45-0400Diastolic blood mm[Hg] Jamar Ball Other [employer] Other 09-20-2023 13:45-0400Respiratory rate12 /minBenjamin Ball Other [employer] Other 09-20-2023 13:45-0400Systolic blood trzanqsd314 mm[Hg] Jamar Ball Other [employer] Other 08-30-2023 08:45-0400Body daiayq386.91 cmBenjamin Ball Other [employer] Other 08-30-2023 08:45-0400Body mass index (BMI) [Ratio] 32.81 kg/c6Amfugpcf Ball Other [employer] Other 08-30-2023 08:45-0400Body wayqaj71.62 kgBenalfie Ball Other [employer] Other 08-30-2023 08:45-0400Diastolic blood mm[Hg] Jamar Ball Other [employer] Other 08-30-2023 08:45-0400Respiratory rate12 /minBenalfie Fall Other [employer] Other 08-30-2023 08:45-0400Systolic blood fwzrqrut408 mm[Hg] Jamar Ball Other [employer] Other 07-20-2023 09:32-0400Body .6 cmMarco A Esqueda MD Work Phone: [facility] [place]07-20-2023 09:32-0400Body temperature 97.2 [degF]Marco A Esqueda MD Work Phone: [facility] [place]07-20-2023 09:32-0400Body iaepjn63.62 kgMarco A Esqueda MD Work Phone: [facility] [place]07-20-2023 09:32-0400Diastolic blood tpbniopz91 mm[Hg]Marco A Esqueda MD Work Phone: [facility] [place]07-20-2023 09:32-0400Heart rate50 /min Marco A Esqueda MD Work Phone: [facility] [place]07-20-2023 09:32-0400Respiratory rate 16 /minMarco A Esqueda MD Work Phone: [facility] [place]07-20-2023 09:32-1420XvA1% (BldA) [Mass fraction]97 %Marco A Esqueda MD Work Phone: [facility] [place]07-20-2023 09:32-0400Systolic blood mm[Hg]Marco A Esqueda MD Work Phone: [facility] [place]04-27-2023 09:30-0400Body .6 cmChristo Howard APRN.ASSISTANT SALES CENTER MANAGER Work Phone: [facility] [place]04-27-2023 09:30-0400Body temperature 97.11 [degF]Christo Howard APRN.ASSISTANT SALES CENTER MANAGER Work Phone: [facility] [place]04-27-2023 09:30-0400Body kvukxq84.44 kgChristo Howard APRN.ASSISTANT SALES CENTER MANAGER Work Phone: [facility] [place]04-27-2023 09:30-0400Diastolic blood ylqalwap04 mm[Hg]Christo Howard APRN.ASSISTANT SALES CENTER MANAGER Work Phone: [facility] [place]04-27-2023 09:30-0400Heart rate54 /min Christo Howard APRN.ASSISTANT SALES CENTER MANAGER Work Phone: [facility] [place]04-27-2023 09:30-0400Respiratory rate 16 /minChristo Howard APRN.ASSISTANT SALES CENTER MANAGER Work Phone: [facility] [place]04-27-2023 09:30-2507EpR1% (BldA) [Mass fraction]98 %Christo Howard APRN.ASSISTANT SALES CENTER MANAGER Work Phone: [facility] [place]04-27-2023 09:30-0400Systolic blood isuhastx095 mm[Hg]Christo Howard APRN.ASSISTANT SALES CENTER MANAGER Work Phone: [facility] [place]03-03-2023 08:30-0500Body coyxtx766.91 cmBenMarcato Digital [employer] Other [place] [employer] Other 03-03-2023 08:30-0500Body mass index (BMI) [Ratio] 33.16 kg/i6Mvuldjwi Ball Other [employer] Other 03-03-2023 08:30-0500Body kuupsk54.62 kgBenjamin Ball Other [employer] Other 03-03-2023 08:30-0500Diastolic blood mm[Hg] Jamar Ball Other [employer] Other 03-03-2023 08:30-0500Respiratory rate12 /minBenjamin Ball Other [employer] Other 03-03-2023 08:30-0500Systolic blood sjlfqibk955 mm[Hg] Jamar Ball Other [employer] Other 02-24-2023 08:30-0500Body crevir879.91 cmBenjamin Ball Other [employer] Other 02-24-2023 08:30-0500Body mass index (BMI) [Ratio] 33.45 kg/u3Smwtegoq Ball Other [employer] Other 02-24-2023 08:30-0500Body hfuaiu77.44 kgBenjamin Ball Other [employer] Other 02-24-2023 08:30-0500Diastolic blood sqzrpxmi85 mm[Hg] Jamar Ball Other [employer] Other 02-24-2023 08:30-0500Respiratory rate12 /minBenjamin Ball Other [employer] Other 02-24-2023 08:30-0500Systolic blood uahdxzch279 mm[Hg] Jamar Ball Other [facility] [employer] Other 02-24-2023 07:30-0500Body .91 cmBenjajennifer Ball Other [employer] Other 02-24-2023 07:30-0500Body mass index (BMI) [Ratio] 33.45 kg/g3Unxrjvut Ball Other [place] [employer] Other 02-24-2023 07:30-0500Body vuiodf95.44 kgBenalfie Ball Other [facility] [employer] Other 02-24-2023 07:30-0500Diastolic blood vmsujsrm50 mm[Hg] Jamar Fall Other [place] [employer] Other 02-24-2023 07:30-0500Respiratory rate12 /minBenalfie Ball Other [place] [employer] Other 02-24-2023 07:30-0500Systolic blood gvwvmhgo413 mm[Hg] Jamar Fall Other [place] [employer] Other 01-26-2023 09:24-0500Body zszjba713.6 cmMarco A Esqueda MD Work Phone: [facility] [place]01-26-2023 09:24-0500Body temperature 97 [degF]Marco A Esqueda MD Work Phone: [facility] [place]01-26-2023 09:24-0500Body cwhubv56.44 kgMarco A Esqueda MD Work Phone: [facility] [place]01-26-2023 09:24-0500Diastolic blood aocpigyq78 mm[Hg]Marco A Esqueda MD Work Phone: [facility] [place]01-26-2023 09:24-0500Heart rate53 /min Marco A Esqueda MD Work Phone: [facility] [place]01-26-2023 09:24-0500Respiratory rate 16 /minMarco A Esqueda MD Work Phone: [facility] [place]01-26-2023 09:24-3741UlL5% (BldA) [Mass fraction]97 %Marco A Esqueda MD Work Phone: [facility] [place]01-26-2023 09:24-0500Systolic blood oudclbsd012 mm[Hg]Marco A Esqueda MD Work Phone: [facility] [place]01-05-2023 15:30-0500Body peoilv366.91 cmBenjamin Ball Other [employer] Other 01-05-2023 15:30-0500Body mass index (BMI) [Ratio] 34.18 kg/o6Sosykwfw Ball Other [employer] Other 01-05-2023 15:30-0500Body loymeq88.52 kgBenjamin Ball Other [employer] Other 01-05-2023 15:30-0500Diastolic blood aahjitkb90 mm[Hg] Jamar Ball Other [employer] Other 01-05-2023 15:30-0500Respiratory rate16 /minBenjamin Ball Other [employer] Other 01-05-2023 15:30-0500Systolic blood prukeirc890 mm[Hg] Jamar Ball Other [employer] Other [id number] 09:07-0400Blood Pressure LocationUniversity [facility]10-28-2022 09:07-0400Diastolic blood zwgqjgao78 mm[Hg]Anthonycindy SCRUGGS [facility]10-28-2022 09:07-0400Heart rate55 /minPatrick SCRUGGS [facility]10-28-2022 09:07-0400Respiratory rate16 /minPatrick SCRUGGS [facility]10-28-2022 09:07-0400Systolic blood qvsvuuom888 mm[Hg]Anthony SCRUGGS [facility]10-27-2022 10:41-0400Body brogblmxqpp39.81 [degF]LUAN Khan MD Work Phone: [facility] [place]10-27-2022 10:41-0400Body ohdrgq30.07 kgNA Bill JAMES Work Phone: [facility] [place]10-27-2022 10:41-0400Diastolic blood ztggseke33 mm[Hg]LUAN Khan MD Work Phone: [facility] [place]10-27-2022 10:41-0400Heart rate51 /min LUAN Khan MD Work Phone: [facility] [place]10-27-2022 10:41-0400Respiratory rate 18 /NathalieLUAN Khan MD Work Phone: [facility] [place]10-27-2022 10:41-6230MtV5% (BldA) [Mass fraction]99 %LUAN Khan MD Work Phone: [facility] [place]10-27-2022 10:41-0400Systolic blood kbkdwbta364 mm[Hg]LUAN Khan MD Work Phone: [facility] [place]08-04-2022 09:36-0400Body uovqjt797.6 cmMarco A Esqueda MD Work Phone: [facility] [place]08-04-2022 09:36-0400Body temperature 97.9 [degF]Marco A Esqueda MD Work Phone: [facility] [place]08-04-2022 09:36-0400Body nludcd75.07 kgMarco A Esqueda MD Work Phone: [facility] [place]08-04-2022 09:36-0400Diastolic blood bcbkbfbu87 mm[Hg]Marco A Esqueda MD Work Phone: [facility] [place]08-04-2022 09:36-0400Heart rate63 /min Marco A Esqueda MD Work Phone: [facility] [place]08-04-2022 09:36-0400Respiratory rate 16 /minMarco A Esqueda MD Work Phone: [facility] [place]08-04-2022 09:36-7182HlT2% (BldA) [Mass fraction]99 %Marco A Esqueda MD Work Phone: [facility] [place]08-04-2022 09:36-0400Systolic blood tmxwuixc935 mm[Hg]Marco A Esqueda MD Work Phone: [facility] [place]05-05-2022 10:50-0400Body temperature 97.7 [degF]Lab/[place] Work Phone: [facility] [place]05-05-2022 10:50-0400Diastolic blood xespuncc65 mm[Hg]Lab/[place] Work Phone: [facility] [place]05-05-2022 10:50-0400Heart rate60 /min Lab/[place] Work Phone: [facility] [place]05-05-2022 10:50-0400Respiratory rate 18 /minLab/[facility] Work Phone: [facility] [place]05-05-2022 10:50-4175OxN4% (BldA) [Mass fraction]95 %Lab/[place] Work Phone: [facility] [place]05-05-2022 10:50-0400Systolic blood alqcbpje129 mm[Hg]Lab/[place] Work Phone: [facility] [place]04-28-2022 13:58-0400Body aokxiq712.6 cmMarco A Esqueda MD Work Phone: [place] [address]-28-2022 13:58-0400Body temperature 97.39 [degF]Marco A Esqueda MD Work Phone: [facility] [place]04-28-2022 13:58-0400Body flgifj53.97 kgMarco A Esqueda MD Work Phone: [place] [address]-28-2022 13:58-0400Diastolic blood sgngmajv15 mm[Hg]Marco A Esqueda MD Work Phone: [facility] [place]04-28-2022 13:58-0400Heart rate68 /min Marco A Esqueda MD Work Phone: [facility] [place]04-28-2022 13:58-0400Respiratory rate 16 /minMarco A Esqueda MD Work Phone: [place] [address]-28-2022 13:58-8913XzC7% (BldA) [Mass fraction]98 %Marco A Esqueda MD Work Phone: [facility] [place]04-28-2022 13:58-0400Systolic blood fuffuzsd147 mm[Hg]Marco A Esqueda MD Work Phone: [facility] [place]04-25-2022 13:03-0400Blood Pressure LocationPabj SCRUGGS [facility] 04-25-2022 13:03-0400Diastolic blood dybaueaa52 mm[Hg] Anthony SCRUGGS [facility] 04-25-2022 13:03-0400Heart rate61 /minPabj SCRUGGS [facility] 04-25-2022 13:03-0400Systolic blood mm[Hg] Anthony SCRUGGS [facility] Encounters Encounter DateEncounter TypeCare ProviderFacilityStart: 80-76-3557sqzspucayz Anthony SCRUGGSFacility:[facility]ueStart: 26-20-5554jpvrgqqzkuVntrfbx R WATERS Facility:[facility] [place]Start: 05-22-2025 End: 49-62-3982rdjfohkwsnSSJCJJHD E BALLFacility:[facility]: 05-15-2025 End: 57-22-7519mbiwfituwuBESSHQLY E BALLFacility:[facility]: 05-01-2025 End: 77-63-2705ibyhzaufriBekokmsv Ball DO Work Phone: [facility] Work Phone: Start: 05-01-2025 End: 52-68-2551Aefojam encounter procedureBenjamin Ball DO-[facility] Work Phone: Start: 03-31-2025 End: 74-88-7952kkyzejgtrbFjlghgo R WATERSFacility:[facility]: 03-31-2025 End: 28-36-7884Nhzzssk encounter procedureAnthony SCRUGGS [facility] start: 37-54-9335Hhg-patient / Non-visitOutside Provider-[facility] Work Phone: Start: 08-15-5008Vwl-patient / Non-visitMelgena Quiroz CNP-[facility] Work Phone: Start: 03-20-2025 End: 40-34-8279copbvrecydTQPEHZO [facility] Healthcaretart: 03-20-2025 End: 67-48-8428Qaoxmdcdr for general adult medical examination without abnormal findingsST. JOHN'S RIVERSIDE HOSPITALGENA [facility] CenterStart: 02-25-2025 End: 02-30-0334Ufipnp flowsheetNatalie A Felter ROLL FORMING 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 Work Phone: [facility] DermatologyStart: 02-25-2025 End: 09-07-2125Sofdqi flowsheetNatalie A Felter ROLL FORMING 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 Work Phone: [facility] DermatologyStart: 02-25-2025 End: 62-09-1850Puiirg outpatient visit 15 minutesNatalie A Felter ROLL FORMING 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 Work Phone: noMS Krishnan DermatologyComment on above:Seborrheic keratosis (Primary Dx); Melanocytic nevus of trunk; Actinic keratosis; Lentigines; Psoriasis vulgaris ; History of SCC (squamous cell carcinoma) of skinStart: 02-20-2025 End: 57-71-5774wscdcshnkhTJDQDFVH E BALLFacility:[facility]tart: 02-17-2025 End: 65-25-0621vllzowdlokRigtwjf Vytautas Giedrabrianna JAMESFacility:[facility] Start: 11-32-8201Seh-patient / Non-visitMarco A Esqueda MD-[facility] Work Phone: Start: 2025 End: 95-81-6583wvnbskjbctORNQI ABHYANKARFacility:[facility] [place] HospitalStart: 11-07-2024 End: 51-51-1235cqxmyvtryeSKBESKwadwo ESQUEDAFacility:[facility] Start: 10-31-2024 End: 01-90-2878ubbwzvnguaQIUAWOFY E BALLFacility:[facility]art: 10-21-2024 End: 66-71-8836aotwxptogtRtjnrvi Vmarioautamanda Sethedcelia JAMESFacility:[facility] [place] Start: 10-07-2024 End: 48-26-0954vgikmwmhtnFewyuue R WATERSFacility:EU Jentart: 10-07-2024 End: 61-99-7145zrbkmetuafJzpojxzSri Herrera MDFacility:[facility] Start: 09-02-2024 End: 41-47-6942ubtcxjwnhfVdyznrbijKettering Memorial Hospital Work Phone: Start: 09-02-2024 End: 60-42-2134Jaucxlz encounter procedureAtrium Health [facility] Physician GroupAdena Health [facility] Work Phone: Start: 15-78-7755Agmobif encounter procedureUniversity Hospitals St. John Medical Centertart: 08-08-2024 End: 40-91-9752amfgnpojqkXsp/[place] Work Phone: Hematology/OncologyComment on above:Malignant neoplasm of prostate (HCC) (Primary Dx)Malignant neoplasm of prostate (HCC) (Primary Dx); Essential hypertension; 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, unspecified vessel or lesion type; Type 2 diabetes mellitus without complication, without long-term current use of insulin (HCC)Start: 08-08-2024 End: 75-96-2358Strlrwb encounter procedureChristo Howard APRN.CNP Work Phone: Hematology/OncologyStart: 08-01-2024 End: 91-66-0798lnoqgjaaoiCNIJYVKP E BALLFacility:[facility] Hospitaltart: 71-15-6397Ldf-patient / Non-visitAtrium Health [facility]ician [facility] Work Phone: Start: 07-25-2024 End: 18-52-9381Ucauojkde encounterMarco A Esqueda MD Work Phone: [facility] LaboratoryComment on above:Lab OrdersStart: 06-10-2024 End: 83-94-9163Pqxmgek encounter procedureAtrium Health [facility] Physician GroupAdena Health System Work Phone: Start: 05-09-2024 End: 96-88-0180glasbogubfZzy/[place] Work Phone: Hematology/OncologyComment on above:Malignant neoplasm of prostate (HCC) (Primary Dx)Start: 05-09-2024 End: 64-49-6197Oubarmj encounter Jovan Esqueda MD Work Phone: Hematology/OncologyStart: 05-08-2024 End: 36-05-2227RpwvouWdunnos McKitrick [facility] Work Phone: [facility] PharmacyComment on above: Refill RequestStart: 04-19-2024 End: 41-23-9038neyawavyzaPtphmaf R WATERSFacility:EU [place]vueStart: 04-19-2024 End: 52-90-6391Aakulcg encounter Magi SCRUGGS [facility] start: 04-01-2024 End: 29-23-9923XvmvntZtosfChalo Esqueda MD Work Phone: Hematology/OncologyComment on above:Refill Request Start: 04-01-2024 End: 55-12-9312DyhzpgLsnadpy [facility] Work Phone: [facility] -3Comment on above:Refill Request Start: 03-26-2024 End: 14-15-2987uiqppyujujFobvdtjhrKettering Memorial Hospital Work Phone: Start: 03-26-2024 End: 00-80-2423Mtzzmkg encounter procedureAtrium Health [facility] Physician GroupAdena Health System Work Phone: Start: 02-29-2024 End: 54-77-2807rsjzoyqpwpNVIOGVWVHZL HASSETTNot AvailableStart: 02-26-2024 End: 08-21-5806fitvzucsknHEIGUSF A FELTERNot AvailableStart: 02-02-2024 End: 68-76-6110efsvprzhbvAxu/[place] Work Phone: Hematology/OncologyComment on above:Malignant neoplasm of prostate (HCC) (Primary Dx)Start: 02-02-2024 End: 48-07-0990Rayssqt encounter Phong Rajan APRN.ASSISTANT SALES CENTER MANAGER Work Phone: Hematology/OncologyComment on above:Malignant neoplasm of prostate (HCC) (Primary Dx)Start: 62-44-5149Upq-patient / Non-visitAtrium Health [facility] Work Phone: Start: 11-23-2023 End: 73-56-7675rpsbotvemgDferdasotKettering Memorial Hospital Work Phone: Start: 11-23-2023 End: 30-66-4845Cxphcca encounter procedureAtrium Health [facility] Physician GroupAdena Health System Work Phone: Start: 11-02-2023 End: 53-80-9282tgkgrnfntjJtj/[place] Work Phone: Hematology/OncologyComment on above:Malignant neoplasm of prostate (HCC) (Primary Dx)Malignant neoplasm of prostate (HCC) (Primary Dx); Essential hypertension; 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, unspecified vessel or lesion type; Type 2 diabetes mellitus without complication, without long-term current use of insulin (HCC); Lesion of skin of right ear; Abdominal discomfortStart: 11-02-2023 End: 54-81-0153Cnvppwu encounter Cecilia Howard APRN.CNP Work Phone: SANDUSKYStart: 14-34-8075Yov-patient / Non-visit [facility] Physician [facility] Work Phone: Start: 10-20-2023 End: 66-94-5366Ocbpsxt encounter procedureAnthony SCRUGGS [facility] start: 13-16-7537Tbv-patient / [facility] Work Phone: Start: 09-28-2023 End: 65-17-6629jqjgzjastvSMYUBI E FLEMINGNot AvailableStart: 09-12-2023 End: 22-79-7237Eqfgpim encounter procedureNovant Healthmem[facility] Work Phone: Start: 33-05-5338Fgg-patient / Non-visitAracelis [facility] Professional [employer]ES Work Phone: Start: 07-64-3342Ggxbxa flowsheetNatalie A Felter [employer]LL FORMING 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 Work Phone: noms SWS DERMStart: 54-22-9552Giznbn flowsheetNatalie A Felter ROLL FORMING 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 Work Phone: noms SWS DERMStart: 08-28-2023 End: 48-32-8434Eknstfi encounter procedureNatalie A Felter ROLL FORMING 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 Work Phone: noms SWS DERMComment on above:Neoplasm of unspecified behavior of bone, soft tissue, and skin; Actinic keratosisStart: 08-28-2023 End: 83-23-7467ycffzvscsfNHBKKRK A FELTERNot AvailableStart: 08-24-2023 End: 65-29-2509gvffpawllcSwqgzysh Ball Other [employer] Other Start: 27-02-1652Gmxyrrf encounter procedureBenjamin BallGREYG [facility] ClinicStart: 08-04-2023 End: 37-60-7767bseeaubqcsKncgcdmg Ball Other [employer] Other Start: 80-88-6691Rdugrjfre encounterBenjamin BallFPG [facility] Medical ClinicStart: 14-42-5341Rkafrrgnb encounterBenjamin BallFPG [facility] ClinicStart: 06-05-2023 End: 84-82-0732almnyeorijLSPCQA H [facility]View[facility] [employer] Other Start: 05-30-2023 End: 75-18-8970uchnidhwwuPakfdqzz Ball Other [employer] Other Start: 44-38-5553Anxdro outpatient visit 15 minutes [facility] ClinicStart: 05-01-2023 End: 14-35-4120enhuzjaxlmRnelfknq Ball Other [employer] Other Start: 50-56-9097Iihtpc outpatient visit 15 minutes [facility] ClinicStart: 52-93-5970Sonudstqq encounterBenjajennifer [facility] Medical ClinicStart: 04-27-2023 End: 64-14-8388lsavtbcmtdDsv/[place] Work Phone: Hematology/OncologyComment on above:Malignant neoplasm of prostate (HCC) (Primary Dx)Malignant neoplasm of prostate (HCC) (Primary Dx); 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, unspecified vessel or lesion type; Essential hypertension; Type 2 diabetes mellitus without complication, without long-term current use of insulin (HCC)Start: 04-27-2023 End: 18-56-4586Lwptiyj encounter procedureChristo Howard APRN.CNP Work Phone: SANDUSKYStart: 04-25-2023 End: 31-50-7951qsmkfyygrwWtjfmkml Ball Other [employer] Other Start: 97-60-6667Wnspqpnbc encounterBenalfie Fall Medical ClinicStart: 04-18-2023 End: 70-64-5207uuvpjbhuxtWkdelpbw Ball Other [employer] Other Start: 38-99-9578Qlmezpmli encounterBenalfie Fall Medical ClinicStart: 04-17-2023 End: 69-56-6146Wwilevw encounter procedureAnthony SCRUGGS [facility] start: 04-12-2023 End: 20-04-9681odjxuxuzqeOvdxopyp Ball Other [employer] Other Start: 66-22-7976Uhkammynb encounterBenjamin BallFPG [facility] ClinicStart: 04-06-2023 End: 02-83-2149mnycdjjwelXcdavzyf Ball Other [employer] Other Start: 67-77-1059Tsaqwrcej encounterBenjamin BallFPG [facility] ClinicStart: 04-05-2023 End: 11-15-9117tgrmitanpsNoqurzqg Ball Other [employer] Other Start: 76-49-2052Mxhuhz outpatient visit 15 minutes Jamar BallFPG [facility] ClinicStart: 03-69-6229Zmfzvqeuy encounterBenjamin BallFPG [facility] ClinicStart: 03-15-2023 End: 90-62-2192zouphyhanfLniospey Ball Other [employer] Other Start: 78-50-1872Fbfybw outpatient visit 25 minutes Jamar BallFPG [facility] ClinicStart: 02-05-2023 End: 21-75-9067rwtgwlcbcrHqawjhuw Ball Other [employer] Other Start: 79-38-3341Cipalwwgd encounterBenjamin BallFPG [facility] ClinicStart: 02-02-2023 End: 23-93-1780sqvwfyidehLrv/[place] Work Phone: Hematology/OncologyComment on above:Malignant neoplasm of prostate (HCC) (Primary Dx)Start: 02-02-2023 End: 01-94-6537Eodpfwe encounter Jovan Esqueda MD Work Phone: SANDUSKYStart: 11-15-2022 End: 43-85-6323ygllvwzcpzGjoevucw Ball Other [employer] Other Start: 68-73-7780Fdxqwxnoy by computer [facility] ClinicStart: 11-11-2022 End: 92-59-8153hujmfwetboJkieurel Ball Other [employer] Other Start: 10-64-6080Igbhvthja by computer linkJamar Fall Medical ClinicStart: 11-10-2022 End: 67-39-4924semqwnuehgPyd/[place] Work Phone: Hematology/OncologyComment on above:Malignant neoplasm of prostate (HCC) (Primary Dx)Malignant neoplasm of prostate (HCC) (Primary Dx); 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, unspecified vessel or lesion type; Essential hypertension; Type 2 diabetes mellitus without complication, without long-term current use of insulin (HCC)Start: 11-10-2022 End: 42-62-3925Ofappxy encounter procedureChristo Howard APRN.CNP Work Phone: SANDUSKYStart: 10-25-2022 End: 99-09-8601wjklzozwtzNK ANTHONY SCRUGGS .Facility:V7Spqsn: 09-16-2022 End: 19-92-4131abistuxchhUvfthugf Ball Other [employer] Other Start: 33-58-6456Fydhkr outpatient visit 15 minutes Jamar [facility] ClinicStart: 09-09-2022 End: 41-40-3384ijhyocmvouUimoxurr Ball Other [employer] Other Start: 30-61-8719Ewjuhuf encounter procedureJamar Fall Medical ClinicStart: 09-05-2022 End: 45-80-6633blqewlssldME NONE LISTED REQUESTFacility:W6Vukvz: 08-11-2022 End: 67-31-1803vvpovtganxPwr/[place] Work Phone: Hematology/OncologyComment on above:Malignant neoplasm of prostate (HCC) (Primary Dx)Malignant neoplasm of prostate (HCC) (Primary Dx); Bone metastasis (HCC); 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, unspecified vessel or lesion type; Essential hypertension; Type 2 diabetes mellitus without complication, without long-term current use of insulin (HCC)Start: 08-11-2022 End: 91-39-2613Rsrwblf encounter procedureMarco A Esqueda MD Work Phone: SANDUSKYStart: 07-21-2022 End: 25-84-8357cjrhbujxgpNI [employer] Other Start: 52-87-1999Dqyxiy outpatient visit 15 minutes Jamar [facility] ClinicStart: 13-14-0844Vcxhdvx encounter procedure Jamar [facility] ClinicStart: 47-30-0838Dvlwktpzc encounterBenjajennifer [facility] ClinicStart: 05-27-2022 End: 96-54-5546jdezebvygxUZ NONE LISTED REQUESTFacility:X3Fyytv: 05-13-2022 End: 58-09-3448Myffiaz encounter procedureAnthony SRCUGGS [facility] start: 05-12-2022 End: 16-83-1179Kgjrjsl encounter procedureZach Khan MD Work Phone: Radiation OncologyComment on above:Malignant neoplasm of prostate (HCC) (Primary Dx)Start: 05-12-2022 End: 59-30-7588lklzdodcizVzu/[place] Work Phone: Hematology/OncologyComment on above:Malignant neoplasm of prostate (HCC) (Primary Dx)Start: 05-05-2022 End: 70-47-0663ntxeletiilMI ANTHONY SCRUGGS .Facility:L8Bxwhi: 05-02-2022 Telephone encounterChristo Howard APRN.CNP Work Phone: Hematology/OncologyComment on above:Lab OrdersStart: 04-27-2022 End: 07-61-2032vhnwtwvhmiYYWGXEP BOESFacility:D5Alupb: 02-17-2022 End: 79-62-0124jvcfkauqryNvxir R Murphy MD Work Phone: Hematology/OncologyComment on above:Malignant neoplasm of prostate (HCC) (Primary Dx); Bone metastasis (HCC)Start: 02-17-2022 End: 70-84-9472Mnwdutw encounter Jovan Esqueda MD Work Phone: SANDUSKYStart: 01-25-2022 End: 95-95-4276pzurmtexnpRY NONE LISTED REQUESTFacility:Q9Mwqnz: 12-06-2021 Telephone encounterClementine Aguilar RN Work Phone: Hematology/OncologyComment on above:Care Coordination (Refill Question)Start: 11-18-2021 End: 22-38-2608tfezfrnwagXcy/[place] Work Phone: Hematology/OncologyComment on above:Malignant neoplasm of prostate (HCC) (Primary Dx)Start: 11-11-2021 End: 14-35-7054alaeavvagnLpnatYoana Esqueda MD Work Phone: Hematology/OncologyComment on above:Malignant neoplasm of prostate (HCC) (Primary Dx); Bone metastasis (HCC)Start: 11-11-2021 End: 91-13-8171Fzkxuie encounter Jovan Esqueda MD Work Phone: SANDUSKYStart: 54-30-3545Wrvdbfbds encounterClementine Aguilar RN Work Phone: Hematology/OncologyComment on above:Care Coordination (Medication Update)Start: 71-19-9369Lczwnuwej encounterClementine Aguilar RN Work Phone: Hematology/OncologyComment on above:Care Coordination (Medication Start Date - Enzalutamide)Start: 11-08-2021 End: 51-13-9882Hatecuy encounter Magi SCRUGGS [facility] Armando start: 11-05-2021 End: 72-16-7301xlaxiqljysDV MARCO A ESQUEDAFacility:I4Oydlv: 75-44-8715vaojuxggra Clementine Aguilar RN Work Phone: Hematology/OncologyComment on above:Oral Anti-cancer Agent Education (Enzalutamide)Start: 83-46-5065Qtwicmpgo encounterAida Luo [facility] Work Phone: Hematology/OncologyComment on above:Medication Update (Xtandi free drug)Care Coordination (Covid Vaccine)Start: 54-28-8987Lexrjqvaw encounterMarco A Esqueda MD Work Phone: Hematology/OncologyComment on above:Lab OrdersStart: 23-58-4456Yeejswirt encounterClemenitne Aguilar RN Work Phone: Hematology/OncologyComment on above:Care Coordination (Testosterone Results)Start: 72-80-3700Dbyuvxdtp encounterClementine Aguilar RN Work Phone: Hematology/OncologyComment on above:Medication Question (Lupron Start Date)Opened In ErrorMedication Authorization (Xtandi) Start: 72-48-4545Kvnsn abstractingMarco A Esqueda MD Work Phone: Hematology/OncologyStart: 84-77-6565Mgvfdwjfx Gayatri Esqueda MD Work Phone: Hematology/OncologyComment on above:Lab OrdersStart: 41-60-2694Szngs health examinationBenjamin Ball Other [employer] Other Procedures DateProcedureProcedure DetailPerforming ClinicianStart: 00-56-9792NCVAJZEKGYZ SKIN LESIONNatalie A Felter ROLL FORMING 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 Work Phone: Start: 91-55-9194NUGGLONNVHX SKIN LESIONNatalie A Felter ROLL FORMING 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 Work Phone: Start: 03-41-2281QXFT / NAIL BIOPSYNatalie A Felter ROLL FORMING 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 Work Phone: Start: 04-19-6668Jdfyvhzmerwhd of median nervePatrick [employer] Start: 86-24-0706HQR screeningDR JAMAR BALLComment on above:Performed By: #### PSAD #### [facility] [address] [place], [place] [address] Dr. Bharati AguiarStart: 48-34-3365DYR screeningDR JAMAR BALLComment on above: Performed By: #### PSAD ####[facility] [address] [place], [place] [address]YnDr. Bharati AguiarStart: 41-87-1986Ztjcc depression screening assessmentMarco A Esqueda MD Work Phone: Start: 67-62-6397Nrfmo depression screening assessment Clementine Aguilar RN Work Phone: Start: 11-78-8566Zshwu depression screening assessment Marco A Esqueda MD Work Phone: Start: 09-59-7740Khormhthazqloxfb procedureOheCollect Comment on above:Started on 01/2018 completed 03/30/18 Start: 52-87-1177BalahyulsqWtjzpes WATERS Start: 88-99-9684Knogjtjyd for malignant neoplasm of colonJamar Fall Other Start: 83-37-7284Cmaykjt prostatectomyPaAclaris Therapeuticsnataliya [employer] Start: 08-45-0227Tgc-surgery evaluationBenate Fall Other Start: 38-73-8096Zcttuwanrzqe cardiovascular examinationBenate Fall Other Start: 50-64-7573Apptmfth artery bypass graftOheCollect Start: 46-33-3159Frpfpervqki biopsy of prostate using ultrasound guidanceLetsgofordinner Start: 04-15-4609Cxamfivgeb studiesPaeCollect Start: 67-48-8069BgspbtldneBoqdart WATERS Start: 36-77-0789RngcogfgreVmfddtb WATERS Start: 77-51-7254KohyivxbwiApmezvp WATERS appendectomyLetsgofordinner ColonoscopyLetsgofordinner Depression screeningBenjamin [employer] Other Plan of Treatment DateCare ActivityDetailAuthorStart: 72-99-4449Zbiri microalbumin profile DTaP,Tdap,Td Vaccine (6 - Td or Tdap)[facility]: 05-72-6514Nubhavjw ScreeningDiabetes ScreeningDayton VA Medical Centertart: 62-79-1892Araldguw Screening Diabetes ScreeningDayton VA Medical Centertart: 19-96-4939Hgccloji ScreeningDiabetes ScreeningDayton VA Medical Centertart: 94-15-6958Ihqbxbtx ScreeningDiabetes Screening [facility]ertart: 22-10-8206Pbfuadrg ScreeningDiabetes ScreeningDayton VA Medical Centertart: 02-26-2026 End: 59-87-7054Gbitrtn encounter zaxmauntp24/13/2026 10:25 AM EDT Office Visit [facility] [address] [phone] Long Boo, ROLL FORMING 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 [address] [place] [address] [facility] DermatologyStart: 32-75-0636EEMEUWMT SCREENDIABETES SCREENDayton VA Medical Centertart: 11-10-2025 DIABETES SCREENDIABETES SCREENDayton VA Medical Centertart: 35-59-0475NPXTUDWJ SCREEN DIABETES SCREENDayton VA Medical Centertart: 60-26-5495XGPTMMKK SCREENDIABETES SCREEN [facility]art: 40-03-0180Sgfyzabxz vaccinationInfluenza Vaccine (#1)[facility]OM HealthcareStart: 02-25-2025 End: 24-69-5891Sxulrzq encounter tzknndaph90/12/2025 10:20 AM EDT Office Visit [facility] [address] [place], [id number] Long Boo, ROLL FORMING 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 [address] [place] [address] ArrivedNOMS [facility] Comment on above:ArrivedStart: 81-76-7258QZMXMVSI SCREENDIABETES SCREENDayton VA Medical Centertart: 40-37-9337FSWQTBGA SCREENDIABETES [facility]: 11-07-2024 End: 14-54-2200Dvpygk-up encounterHematology/OncologyComment on above:3 month lab follow up with xgeva injStart: 11-06-2024 End: 13-67-4122JZL W Auto Differential panel - BloodCOMPLETE BLOOD COUNT AND DIFFERENTIAL Lab Routine Malignant neoplasm of prostate (HCC) Essential hyp ertension 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, unspecified vessel or lesion type Type 2 diabetes mellitus without complication, without long-term current use of insulin (HCC) Expected: 11/06/2024, Expires: 02/05/2025[facility] Work Phone: Comment on above:Expected: 11/06/2024, Expires: 02/05/2025Start: 11-06-2024 End: 08-56-8498Vmnpsmjahpgnv metabolic 2000 panel - Serum or PlasmaCOMPREHENSIVE METABOLIC PANEL Lab Routine Malignant neoplasm of prostate (HCC) Essential hypertension 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, unspecified vessel or lesion type Type 2 diabetes mellitus without complication, without long-term current use of insulin (HCC) Expected: 11/06/2024, Expires: 02/05/2025[facility] ClinicComment on above:Expected: 11/06/2024, Expires: 02/05/2025Start: 11-06-2024 End: 44-12-8070Bqechkde specific Ag [Mass/volume] in Serum or PlasmaPROSTATE- SPECIFIC ANTIGEN DIAGNOSTIC Lab Routine Malignant neoplasm of prostate (HCC) Essential hypertension 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, unspecified vesselor lesion type Type 2 diabetes mellitus without complication, without long-term current use of insulin (HCC) Expected: 11/06/2024, Expires: 02/05/2025[facility] ClinicComment on above:Expected: 11/06/2024, Expires: 02/05/2025Start: 10-31-2024 End: 97-60-8637Lenecwr encounter /17/2025 9:00 AM EDT Office Visit [facility] [address] [place] [address] labV[facility] LaboratoryComment on above:labStart: 51-32-2408Vzuxt-19 Vaccine ()Covid-19 Vaccine ()[facility]: 08-08-2024 End: 50-00-1911Nxtgmb-up encounterHematology/OncologyComment on above:3 month lab follow up with xgeva injStart: 08-01-2024 End: 70-32-3319Yspvojl encounter xymbfcejz22/16/2025 9:00 AM EST Office Visit [facility] [address] [place] [address] 3 [facility] Comment on above:3 month labsStart: 73-12-0737Bixwmad Directive Discussion Advance Directive DiscussionDayton VA Medical Centertart: 05-09-2024 End: 80-78-3187Oxscah-up encounterHematology/OncologyComment on above:3 month lab follow up with xgeva injStart: 05-07-2024 End: 99-05-2670Gcamqhv encounter clxghixtm55/22/2024 9:00 AM EDT Office Visit [facility] [address] [place] [address] 3 month lab follow up with xgeva injNortHenry Ford Kingswood Hospital LaboratoryComment on above:3 month lab follow up with xgeva inj Start: 05-03-2024 End: 15-76-4478Syhqssp encounter ozybwlkqs88/18/2024 9:00 AM EDT Office Visit [facility] [address] [place] [address] 3 month lab follow up with xgeva injNortHenry Ford [facility]wood Hospital LaboratoryComment on above:3 month lab follow up with xgeva inj Start: 04-29-2024 End: 17-22-4862QTO W Auto Differential panel - BloodCOMPLETE BLOOD COUNT AND DIFFERENTIAL Lab Routine Malignant neoplasm of prostate (HCC) Expected: , Expires: 07/29/2024[facility] Work Phone: Comment on above:Expected: 04/29/2024, Expires: 07/29/2024Start: 04-29-2024 End: 57-07-0546Ppdulbmokljrt metabolic 2000 panel - Serum or PlasmaCOMPREHENSIVE METABOLIC PANEL Lab Routine Malignant neoplasm of prostate (HCC) Expected: 04/29/2024, Expires: 07/29/2024[facility] ClinicComment on above:Expected: 04/29/2024, Expires: 07/29/2024Start: 04-29-2024 End: 98-03-8046Vookantp specific Ag [Mass/volume] in Serum or PlasmaPROSTATE- SPECIFIC ANTIGEN DIAGNOSTIC Lab Routine Malignant neoplasm of prostate (HCC) Expected: 04/29/2024, Expires: 07/29/2024[facility] ClinicComment on above: Expected: 04/29/2024, Expires: 07/29/2024Start: 92-88-8876Zzwap-19 Vaccine ()Covid-19 Vaccine ()[facility]: 66-20-6886Zezyylblq vaccinationInfluenza Vaccine (#1)[facility]: 02-26-2024 End: 25-20-9527Hjemkht encounter /12/2024 10:10 AM EDT Office Visit [facility] [address] [place] [address] [employer]oo APRN-ASSISTANT SALES CENTER MANAGER [address] [place] [address] [facility] DERMStart: 11-03-2023 End: 16-33-8833OSX W Auto Differential panel - BloodCOMPLETE BLOOD COUNT AND DIFFERENTIAL Lab Routine Malignant neoplasm of prostate (HCC) Essential hyp ertension 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, unspecified vessel or lesion type Type 2 diabetes mellitus without complication, without long-term current use of insulin (HCC) Lesion of skin of right ear Abdominal discomfort Expected: 11/03/2023, Expires: 02/02/2024 [facility] Work Phone: Comment on above:Expected: 11/03/2023, Expires: 02/02/2024Start: 11-03-2023 End: 24-63-1538Gmbkqpanslmdx metabolic 2000 panel - Serum or PlasmaCOMPREHENSIVE METABOLIC PANEL Lab Routine Malignant neoplasm of prostate (HCC) Essential hypertension 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, unspecified vessel or lesion type Type 2 diabetes mellitus without complication, without long-term current use of insulin (HCC) Lesion of skin of right ear Abdominal discomfort Expected: 11/03/2023, Expires: 02/02/2024 [facility] Work Phone: Comment on above:Expected: 11/03/2023, Expires: 02/02/2024Start: 11-03-2023 End: 06-13-1570Bkoreswo specific Ag [Mass/volume] in Serum or PlasmaPROSTATE- SPECIFIC ANTIGEN DIAGNOSTIC Lab Routine Malignant neoplasm of prostate (HCC) Essential hypertension 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, unspecified vesselor lesion type Type 2 diabetes mellitus without complication, without long-term current use of insulin (HCC) Lesion of skin of right ear Abdominal discomfort Expected: 11/03/2023, Expires: 02/02/2024 [facility] Work Phone: Comment on above:Expected: 11/03/2023, Expires: 02/02/2024Start: 08-28-2023 End: 58-84-7198Tbezols encounter nfuysijmi40/12/2024 11:25 AM EST Office Visit [facility] [address] [place] [address] [employer]oo ROLL FORMING 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 [address] [place] [address] ArrivedNOMS SWS DERMComment on above: ArrivedStart: 07-28-2023 End: 12-84-5386QQM W Auto Differential panel - BloodCBC + DIFF Lab Routine Malignant neoplasm of prostate (HCC) 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, unspecified vessel or lesion type Essential hypertension Type 2 diabetes mellitus without complication, without long-term current use of insulin (HCC) Expected: 07/28/2023, Expires: 09/27/2023[facility] Work Phone: Comment on above:Expected: 07/28/2023, Expires: 09/27/2023Start: 07-28-2023 End: 31-08-6329Foejudptqlxtj metabolic 2000 panel - Serum or PlasmaCOMP METABOLIC PANEL Lab Routine Malignant neoplasm of prostate (HCC) 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, unspecified vessel or lesion type Essential hypertension Type 2 diabetes mellitus without complication, without long-term current use of insulin (HCC) Expected: 07/28/2023, Expires: 09/27/2023[facility] Work Phone: Comment on above:Expected: 07/28/2023, Expires: 09/27/2023Start: 07-28-2023 End: 76-96-9998Jjwbtsct specific Ag [Mass/volume] in Serum or Plasma PSA/PROSTSPECAG DIAG Lab Routine Malignant neoplasm of prostate (HCC) 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, unspecified vessel or lesion type Essential hypertension Type 2 diabetes mellitus without complication, without long-term current use of insulin (HCC) Expected: 07/28/2023, Expires: 09/27/2023[facility] Work Phone: Comment on above:Expected: 07/28/2023, Expires: 09/27/2023Start: 47-78-3799Vyklpgf Directive DiscussionAdvance Directive DiscussionDayton [facility] Medical Centertart: 77-20-5602Uduauiguks Health ScreeningBehavioral Health ScreeningDayton VA Medical Centertart: 69-96-3582Isxob microalbumin profile [facility]: 05-03-2023 End: 75-55-4396Grvaz metabolic 2000 panel - Serum or PlasmaBASIC METABOLIC PNL Lab Routine Malignant neoplasm of prostate (HCC) Expected: 05/03/2023 (Approxima te), Expires: 07/03/2023[facility] Work Phone: Comment on above:Expected: 05/03/2023 (Approximate), Expires: 07/03/2023Start: 05-03-2023 End: 85-93-4147BTO W Auto Differential panel - BloodCBC + DIFF Lab Routine Malignant neoplasm of prostate (HCC) Expected: 05/03/2023 (Approximate), Expi res: 07/03/2023[facility] Work Phone: Comment on above:Expected: 05/03/2023 (Approximate), Expires: 07/03/2023Start: 05-03-2023 End: 62-28-0514Yxjktnga specific Ag [Mass/volume] in Serum or Plasma PSA/PROSTSPECAG DIAG Lab Routine Malignant neoplasm of prostate (HCC) Expected: 05/03/2023 (Approximate), Expires: 07/03/2023[facility] Work Phone: Comment on above:Expected: 05/03/2023 (Approximate), Expires: 07/03/2023Start: 05-03-2023 End: 01-88-8499Zzzvckukhqlu [Mass/volume] in Serum or PlasmaTESTOSTERONE TOTAL Lab Routine Malignant neoplasm of prostate (HCC) Expected: 05/03/2023 (Approximate), Expires: 07/03/2023[facility] Work Phone: Comment on above:Expected: 05/03/2023 (Approximate), Expires: 07/03/2023Start: 63-43-8830Hszoq-19 Vaccine ()Covid- 19 Vaccine ()[facility]: 52-89-5036Ketegtbpk vaccinationDayton VA Medical Centertart: 75-26-1348Ttvuv depression screening assessmentDEPRESSION SCREENINGDayton VA Medical Centertart: 02-09-2023 End: 55-93-3679ZCU W Auto Differential panel - BloodCBC + DIFF Lab Routine Malignant neoplasm of prostate (HCC) 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, unspecified vessel or lesion type Essential hypertension Type 2 diabetes mellitus without complication, without long-term current use of insulin (HCC) Expected: 02/09/2023, Expires: 04/11/2023[facility] Work Phone: Comment on above:Expected: 02/09/2023, Expires: 04/11/2023Start: 02-09-2023 End: 43-64-2520Ltzqsrickyedb metabolic 2000 panel - Serum or PlasmaCOMP METABOLIC PANEL Lab Routine Malignant neoplasm of prostate (HCC) 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, unspecified vessel or lesion type Essential hypertension Type 2 diabetes mellitus without complication, without long-term current use of insulin (HCC) Expected: 02/09/2023, Expires: 04/11/2023[facility] Work Phone: Comment on above:Expected: 02/09/2023, Expires: 04/11/2023Start: 02-09-2023 End: 43-84-4880Pazzlouv specific Ag [Mass/volume] in Serum or Plasma PSA/PROSTSPECAG DIAG Lab Routine Malignant neoplasm of prostate (HCC) 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, unspecified vessel or lesion type Essential hypertension Type 2 diabetes mellitus without complication, without long-term current use of insulin (HCC) Expected: 02/09/2023, Expires: 04/11/2023[facility] Work Phone: Comment on above:Expected: 02/09/2023, Expires: 04/11/2023Start: 86-42-9364Ztfzy depression screening assessmentDEPRESSION SCREENINGDayton VA Medical Centertart: 77-96-3772EMQZB-19 VACCINE (6 - Moderna series) COVID-19 VACCINE (6 - Moderna series)[facility]: 34-72-8669YFFDWEV DIRECTIVE DISCUSSIONADVANCE DIRECTIVE DISCUSSIONDayton VA Medical Centertart: 31-32-0152RTPTLPCBKA ASSESSMENTDEPRESSION ASSESSMENTDayton VA Medical Centertart: 27-56-4951Gnkfp depression screening assessmentDEPRESSION SCREENINGDayton VA Medical Centertart: 05-03-2022 End: 92-79-5382PDF W Auto Differential panel - BloodCBC + DIFF Lab Routine Malignant neoplasm of prostate (HCC) Expected: 05/03/2022, Expires: 07/03/2022 [facility] Work Phone: Comment on above:Expected: 05/03/2022, Expires: 07/03/2022tart: 05-03-2022 End: 05-31-4347Qvitnxmrtomrv metabolic 2000 panel - Serum or PlasmaCOMP METABOLIC PANEL Lab Routine Malignant neoplasm of prostate (HCC) Expected: 05/03/2022, Expires: 07/03/2022[facility] Work Phone: Comment on above:Expected: 05/03/2022, Expires: 07/03/2022tart: 05-03-2022 End: 83-58-8677Sbodzaov specific Ag [Mass/volume] in Serum or Plasma PSA/PROSTSPECAG DIAG Lab Routine Malignant neoplasm of prostate (HCC) Expected: 05/03/2022, Expires: 07/03/2022[facility] Work Phone: Comment on above:Expected: 05/03/2022, Expires: 07/03/2022tart: 54-85-8784Zbznutxzd vaccinationDayton VA Medical Centertart: 11-02-2021 End: 31-90-7497IXF W Auto Differential panel - BloodCBC + DIFF Lab Routine Malignant neoplasm of prostate (HCC) Expected: 11/02/2021, Expires: 01/02/2022 [facility] Work Phone: Comment on above:Expected: 11/02/2021, Expires: 01/02/2022tart: 11-02-2021 End: 1946Rcbqotkridgwh metabolic 2000 panel - Serum or PlasmaCOMP METABOLIC PANEL Lab Routine Malignant neoplasm of prostate (HCC) Expected: 11/02/2021, Expires: 01/02/2022[facility] Work Phone: Comment on above:Expected: 11/02/2021, Expires: 01/02/2022tart: 07-78-5233JCSAO-19 VACCINE (5 - Booster)COVID-19 VACCINE (5 - Booster)[facility]: 36-37-3307CFRYD-19 VACCINE (4 - Booster for Moderna series)COVID-19 VACCINE (4 - Booster for Moderna series)[facility] [place] Start: 99-53-0536UYEWSDG DIRECTIVE DISCUSSIONADVANCE DIRECTIVE DISCUSSION [facility]: 95-53-8671NUJKELNFYH ASSESSMENTDEPRESSION ASSESSMENT [facility]: 12-96-4163PSLGZ-19 VACCINE (3 - Booster for Moderna series)COVID-19 VACCINE (3 - Booster for Moderna series)[facility]: 79-91-2508CQGNUYVHQ AGE 65 AND OVER WITH 5YR LOOKBACK (#1)PNEUMOVAX AGE 65 AND OVER WITH 5YR LOOKBACK (#1)[facility]: 67-91-2797Gumes microalbumin profileDTAP,TDAP,TD (1 - Tdap)[facility]: 35-93-2517TAHQYQWS VACCINE (2 of 3)SHINGRIX VACCINE (2 of 3)[facility]: 43-97-4507PUV Vaccine (1 - 1-dose 60+ series)RSV Vaccine (1 - 1-dose 60+ series)[facility]: 08-56-3633YNKVLMFM VACCINE (1 of 2)SHINGRIX VACCINE (1 of 2)[facility] [place] Start: 92-04-5404VHWPJTLJG (FIT-DNA)COLOGUARD (FIT-DNA)[facility]: 04-42-6866XwhvyaitbylKVSYSPQZNVFTtfgnvsty ClinicStart: 82-37-7008RSRUUHXCZO CANCER SCREENINGCOLORECTAL CANCER SCREENINGDayton VA Medical Centertart: 34-74-3679IG COLONOGRAPHYCT COLONOGRAPHYDayton VA Medical Centertart: 86-85-1062ZFKFRVBR SCREEN DIABETES SCREENDayton VA Medical Centertart: 45-41-7916TKSHD OCCULT BLOODFECAL OCCULT BLOODDayton VA Medical Centertart: 63-73-5545DFHBOEONBYOOVREPDSHXWFICZVGkoprcecz Clinic Start: 30-56-1323TMHCB SCREENLIPID SCREENDayton VA Medical Centertart: 02-14-1963 Anxiety ScreeningAnxiety ScreeningDayton VA Medical Centertart: 78-92-4179Kxgwrpasxs ScreeningDepression ScreeningDayton VA Medical Centertart: 90-76-4543FRJUEBNPF C SCREENINGHEPATITIS C SCREENINGDayton VA Medical Centertart: 22-44-3523Wrxoeauov C screeningHepatitis C ScreeningSelect [facility] [place]woodDermatopathology exam Dermatopathology exam Pathology and Cytology Timed Neoplasm of unspecified behavior of bone, soft tissue, and skin Release Upon Ordering for 1 Occurrences starting 08/28/2023[facility] Work Phone: comment on above:Release Upon Ordering for 1 Occurrences starting 08/28/2023MR Cervical spine WO contrastOhiohealth Van Wert HospitalUS ExtremityCentennial Medical Center Immunizations Immunization DateImmunizationNotesCare CzqugoncYhemywsx54-39-3830gjxdbjsyc, high dose seasonal, preservative-freeBenjamin Ball DO Work Phone: [facility]10-11-2024COVID-19 (MODERNA) 12Y and olderBenjamin Ball DO Work Phone: [facility]10-11-2024RSV, bv, preFa and preFb, pfBenjamin Ball DO Work Phone: [facility]10-10-2024tetanus toxoid, reduced diphtheria toxoid, and acellular pertussis vaccine, adsorbed Jamar Ball DO Work Phone: [facility]09-10-2024influenza, high dose seasonal, preservative-freeOhiohealth Van Wert Hospital09-10-2024 influenza virus vaccine, unspecified formulationCannon Memorial Hospitalhumberto Boo ROLL FORMING 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 Work Phone: [facility] HealthcareGjpjjthnoz90-61-7598sxdmiskwb virus vaccine, unspecified formulationOhiohealth Van Wert Hospital10-16-2023influenza, high dose seasonal, preservative-freeBenjamin Juan David Other [facility] BeachwoodOdbqdt11-16-5003mqjcxbqvx nasal, unspecified formulationLab/[place] Work Phone: [facility] [place]woodOzeinj51-32-4176jdepvfbxg, high-dose, quadrivalent vaccine (FLUZONE HIGH DOSE QUADRIVALENT)Lab/[facility] Work Phone: [facility] BeachwoodHpfqei74-25-3728gpuyzoqty, high dose seasonal, preservative-freeBenjamin Ball Other [facility] [place]woodMjyusn94-20-9428clpumzpyp virus vaccine, unspecified formulationLab/[facility] Work Phone: [facility]10-06-2022COVID-19 booster vaccine, age 12+ yr, bivalent (MODERNA) Lab/[facility] Work Phone: [facility], BeachwoodComment on above:Result Comment: 2023-10-20: CAQ5136-91-0935JAFUM-37 Vaccine Moderna - Documentation Purposes OnlyBenjamin Juan David Other [facility], BeachwoodComment on above:Result Comment: 2023-10-20: OZT9858-75-9411IIGDD-25 Vaccine Moderna - Documentation Purposes OnlyBenjamin Ball Other [facility], [place]woodComment on above:Result Comment: 2023-10-20: MBU7969-59-8042eeqbviqtu virus vaccine, split virus (incl. purified surface antigen)Jamar Fall Other [facility] BeachwoodTqmlfw30-04-9358obkdktuwe virus vaccine, unspecified formulationOhiohealth [facility] Hospital10-01-2021influenza nasal, unspecified formulationMarco A Esqueda MD Work Phone: [facility] BeachwoodHnwunu58-22-7969qfwxcduuh virus vaccine, unspecified formulationLetsgofordinner [facility] [id number]-91 Vaccine Moderna - Documentation Purposes OnlyBencelsojennifer Fall Other [facility] [place]woodPdnklp18-47-8658TWGF-DkE-7 (COVID-19) Ad26 vaccine, recombinantLetsgofordinner [facility] 02244467-46-8563IPAYV-20 original vaccine, full dose, monovalent (MODERNA)Lab/[facility] Work Phone: [facility] BeachwoodSmqmnh52-99-6673JGQH-FqN-8 (COVID-19) mRNA- 1273 vaccinePaeCollect [facility] comment on above:Result Comment: pt does not know the dates but states that he is fully glepasvsbi33-54-6906nhjaxftlz virus vaccine, split virus (incl. purified surface antigen)Jamar Juan David Other [facility] [place]woodOimzkq96-39-7120uvcfzppsj virus vaccine, unspecified formulationOhiohealth Van [facility] Hospital10-07-2019influenza virus vaccine, split virus (incl. purified surface antigen)Jamar Fall Other [facility] BeachwoodRaykjq78-74-9387mqxusfjfs virus vaccine, unspecified formulationOhiohealth [facility] Hospital10-01-2019influenza nasal, unspecified formulationMarco A Esqueda MD Work Phone: [facility] BeachwoodOskwez75-93-9529fnciqc vaccine daly Esqueda MD Work Phone: [facility] BeachwoodVsugve11-47-6739nxdcrm vaccine recombinant Marco A Esqueda MD Work Phone: [facility] BeachwoodZvvjcp87-22-0486tjxztytgf nasal, unspecified formulationMarco A Esqueda MD Work Phone: [facility] BeachwoodLdkcxe02-54-0347IY37 adjuvantLab/[place] Work Phone: [facility] BeachwoodNjwmox51-97-6701nmfhaokof nasal, unspecified formulationLab/[place] Work Phone: [facility] BeachwoodTquchv11-97-6021xhcnztrwo virus vaccine, split virus (incl. purified surface antigen)Jamar Fall Other [facility] [employer] Other 09145672-74-5758ahtgaivxe virus vaccine, unspecified formulationPatricShelfie [facility]09-11-2018Seasonal trivalent influenza vaccine, adjuvanted, preservative Ginny Esqueda MD Work Phone: [facility] BeachwoodQvaqez88-86-5423ecpyqoobforr polysaccharide vaccine, 23 valHubert Esqueda MD Work Phone: [facility] BeachwoodEvearv53-38-3542iyqzxqkxnmrb polysaccharide vaccine, 23 valentBenalfie Fall Other [facility] BeachwoodVxqile02-87-9638Hbmyjsr 20Benjajennifer Fall Other [facility]11-15-2017influenza nasal, unspecified formulationLab/[place] Work Phone: [facility] BeachwoodFlhjcn29-62-8997zcaptpaiq virus vaccine, unspecified formulationPatrick [employer] [facility]11-15-2017influenza, injectable, quadrivalent, preservative Ginny Esqueda MD Work Phone: [facility] BeachwoodBulnql76-30-4557rgnmkjeck nasal, unspecified formulationLab/[place] Work Phone: [facility] BeachwoodSbnobl39-76-0402lsxkhqtvh virus vaccine, split virus (incl. purified surface antigen)Jamar Fall Other [facility] [employer] Other 0889277-73-2102eusxutmfa virus vaccine, unspecified formulationPatiffanynataliya SCRUGGS [facility] Qzsfmdgk44-94-4534ubunsfcpz, high dose seasonal, preservative-Ginny Esqueda MD Work Phone: [facility] BeachwoodZqydxi10-51-7197rgyqznvqw nasal, unspecified formulationMarco A Esqueda MD Work Phone: [facility] BeachwoodKtahdk75-69-2708fsohozbxl virus vaccine, split virus (incl. purified surface antigen)Jamar Fall Other [facility] BeachwoodSriayp89-50-4674taadqqbyt virus vaccine, unspecified formulationOhiohealth [facility] Hospital09-15-2016influenza nasal, unspecified formulationMarco A Esqueda MD Work Phone: [facility] BeachwoodTbmgvc26-77-9191vacuaozgs nasal, unspecified formulationMarco A Esqueda MD Work Phone: [facility] BeachwoodLqhkcc43-64-9203yuakfkmdi, seasonal, injectable, preservative freeLab/[place] Work Phone: [facility] BeachwoodQfwjda24-54-9108jhsdermwbpif conjugate vaccine, 13 Janis Esqueda MD Work Phone: [facility] BeachwoodAmmpac94-97-8927vgdtrdiicbko polysaccharide vaccine, 23 Janis Esqueda MD Work Phone: [facility] BeachwoodQizwzs42-05-7466qmpttofii nasal, unspecified formulationLab/[place] Work Phone: [facility] BeachwoodNdbrwn83-87-3524rysrjmfye, seasonal, injectable, preservative Ginny Esqueda MD Work Phone: [facility] BeachwoodQjapkr73-83-1340oqsobnpmyd, tetanus toxoids and acellular pertussis vaccine, unspecified formulationMarco A Esqueda MD Work Phone: [facility] BeachwoodYyozsv74-18-6804taoskaq and diphtheria toxoids, not adsorbed, for adult useMarco A Esqueda MD Work Phone: [facility] BeachwoodSzemzi45-74-9965bectlfpvw nasal, unspecified formulationMarco A Esqueda MD Work Phone: [facility] BeachwoodLzkzax23-02-0951pxmyjmc and diphtheria toxoids, adsorbed, preservative free, for adult use (5 Lf of tetanus toxoid and 2 Lf of diphtheria toxoid)Jamar Fall Other [facility] BeachwoodHkafyi53-60-6512jsjupj vaccine, liveMarco A Esqueda MD Work Phone: [facility] BeachwoodAmxtoz69-88-6987hwtllckmf nasal, unspecified formulationMarco A Esqueda MD Work Phone: [facility] [place]woodNrljgw93-82-0678fnypmndjv nasal, unspecified formulationMarco A Esqueda MD Work Phone: [facility] BeachwoodRbfrep09-70-0588cboitwbfmzuq polysaccharide vaccine, 23 valentBenjamin Ball Other [facility] [place]woodOpmcat55-79-6900mwcnxzpxpfxk polysaccharide vaccine, 23 valHubert Esqueda MD Work Phone: [facility] BeachwoodQovnyk90-02-8874nnopqftocmwv vaccine, unspecified formulationMarco A Esqueda MD Work Phone: [facility] BeachwoodKxanvc99-67-6678hccmqgbre nasal, unspecified formulationMarco A Esqueda MD Work Phone: [facility] BeachwoodOzqosz63-54-8082qdexcpdtrdnx polysaccharide vaccine, 23 valentBenjamin Ball Other [facility] BeachwoodLpppcr81-24-0776asrigzbad nasal, unspecified formulationMarco A Esqueda MD Work Phone: [facility] [place]woodKrgeug68-74-0675qjvunbaki nasal, unspecified formulationMarco A Esqueda MD Work Phone: [facility] BeachwoodWiawxp63-15-4115zfyjmvxco virus vaccine, whole virusMarco A Esqueda MD Work Phone: [facility] BeachwoodKbsoal60-22-3189uxxbdwubrm, tetanus toxoids and acellular pertussis vaccine, unspecified formulationBenalfie Fall Other [facility] BeachwoodDkskdi40-48-4905YB(adult) unspecified formulationMarco A Esqueda MD Work Phone: [facility] BeachwoodWqljpj93-40-6460dovfohzmv nasal, unspecified formulationMarco A Esqueda MD Work Phone: [facility] [place] Payers DatePayer CategoryPayerPolicy [id number] MMO MEDICARE SUPPLEMENT [id number] 2019-Present [phone] [address] [place] [address] [id number] 1.2.840.237527.1.13.159.2.7.3.913758.22108-92-1354Wgeytqy Health Insurance [id number] 2011MedicareMEDICARE MEDICARE A AND B [id number] 2011-Present [phone] [address] [address] [place] [address] [id number] 2011Medicare [id number] [id number] 2.16.840.2.816223.60309292-40-8178Xedk-[id number] 2.16.840.1.17610[id number] 2.16.840.1.936811.3.5[id number] 2.16840.1.713514.3.57[id number] 2.16840.1.644514.3.57[id number] 2.840.1.916295.3.57[id number] 2.16840.1.808051.3.57[id number] 2.840.1.787550.3.57[id number] 2..1.325814.3.57[id number] 2.840.1.750773.3.57[id number] 2.840.1.226927.3.57[id number] 2.840.1.055170.3.57[id number] 2..1.963782.3.57[id number] 2.840.1.842856.3.57[id number] 2.840.1.271552.3.57[id number] 2.840.1.841623.3.57[id number] 2.840.1.148096.3.57[id number] 2.16.840.1.066040.3.57[id number] 2..840.1.383365.3.57[id number] 2.16.840.1.4[id number] 2.16.840.1.702275.3.579.2.593Unknown [id number] 2.16.840.1.0[id number] 2.840.1.233761.3.579.2.593 Social History DateTypeDetailFacilityStart: 11-08-2021 End: 13-90-9082Rppcrah smoking status NHISNever smoked tobaccoSelect Medical [facility] [place] Start: 10-25-2021 End: 82-42-5665Txmbvet intakeCurrent drinker of alcohol (finding)[facility]: 27-12-3291Vtifzwa SDOH Alcohol Comment1 day/wkSelect Medical [facility] Clinic [facility], [place] Start: 66-79-8887Whn Assigned At BirthNot on fileDayton VA Medical Centertart: 10-18-2021 End: 71-38-3942Reyxwmvt to SARS-CoV-2 (event)Not sureSelect Medical [facility] Clinic Rehabilitation Hospital, BeachwoodTobacco smoking statusNeverExec[facility] start: 02-02-2023 End: 80-33-1872Wsb [facility]MaleExec[facility] start: 03-43-8516Zdk Assigned At [facility] hospitaleC[facility] ClinicStart: 01-12-2018 End: 65-35-3827Njpiuwp use and exposureSmokeless tobacco non-userDayton VA Medical Centertart: 02-02-2023 End: 56-93-5766Mefdldw of Social functionDayton VA Medical Centertart: 56-62-7210Fdknjr identityIdentifies as male gender (finding)[facility]: 02-11-2022 Sexual orientationHeterosexual (finding)[facility] [place]woodHow often to you have a drink containing alcohol?2-3 time sa weekNOMS HealthcareHow many standard drinks containing alcohol do you have on a typical day?1 or 2NOMS HealthcareHow often do you have 6 or more drinks on 1 occasion?NeverNOIN HealthcareStart: 06-04-2023 Alcohol Commentcaffeine intake: more than 4 cups per dayNOIN HealthcareStart: 09-06-2023 End: 16-16-9662Wmlhwqm smoking status NHISEx-smoker (finding)[facility]: 07-24-2014 End: 77-39-7415ZacWqhs (finding)[facility] Medical Centerexual OrientationExec[facility]rology of [facility] NEGATED: Highlighted rowStart: NINFHistory of tobacco usePassive smokerSelect Medical [facility] [place] Medical Equipment Procedure CodeEquipment CodeEquipment Original TextEquipment IdentifierDates Start: 10-26-2021 End: 24-20-0554Neptmrj on above:1 Each once daily. To test blood sugars1 Each once daily. To test blood sugarBlood Sugar Diagnostic (Contour Next Test Strips) stripStart: 66-09-1580Sehvwzv (Lancets,Thin) miscStart: 52-96-1254Syjjh Sugar Diagnostic (Contour Next Test Strips) stripStart: 09-08-2023 End: 32-92-9731Mxmfx Sugar Diagnostic (Contour Next Test Strips) stripStart: 01-71-2742Gvgopzw (Lancets,Thin) miscStart: 49-09-7844Dunvg Sugar Diagnostic (Contour Next Test Strips) stripStart: 09-08-2023 End: 44-22-5465Poiip Sugar Diagnostic (Contour Next Test Strips) stripStart: 97-92-5777Cnjdsxu (Lancets,Thin) miscStart: 77-83-2483Isrcq Sugar Diagnostic (Contour Next Test Strips) stripStart: 09-08-2023 End: 71-78-6675Tgccc Sugar Diagnostic (Contour Next Test Strips) stripStart: 47-85-0371Vjeqxzl (Lancets,Thin) miscStart: 16-93-3646Cxcej Sugar Diagnostic (Contour Next Test Strips) stripStart: 09-08-2023 End: 10-10-2023 Functional Status DngsHzrkmllvteFeyobnTxrahnas44-19-6366Hflaeweymq StatusN/AExec[facility] of [facility]04-05-2024Functional StatusN/AExec[facility]10-02-2023Functional StatusN/A [facility]10-28-2022Functional StatusN/AExec[facility] of [facility]02-03-2015Are you deaf, or do you have serious difficulty hearingNo 08/19/2014 10:35 AM Santiago Mills LPN [facility] HospitalZghknj70-00-8533Jvn you blind, or do you have serious difficulty seeing, even when wearing glassesYes 08/19/2014 10:35 AM Santiago Mills LPN YesSelect Medical [facility], BeachwoodVroqrr57-62-1962Te you have serious difficulty walking or climbing stairsNo 08/19/2014 10:35 AM Santiago Mills LPN [facility]02-03-2015Do you have difficulty dressing or bathingNo 08/19/2014 10:35 AM aSntiago Mills LPN [facility] 55-12-3738Ylwgeyr of a physical, mental, or emotional condition, do you have difficulty doing errands alone such as visiting a physician's office or shopping No 08/19/2014 10:35 AM Santiago Mills LPN [facility] Mental Status VzmsJxkubzylhoGreqhzOzlsfzkz57-20-7738Iwydesm of a physical, mental, or emotional condition, do you have serious difficulty concentrating, remembering, or making decisionsNo 08/19/2014 10:35 AM Santiago Mills LPN No [facility] Clinical Notes 07-17-2014 to 05-22-2025 Note Date & TdhjLgnmAmukcqzs79-29-2818 NoteHNO ID: [id number] Author: CHARY SHERMAN APRN.ASSISTANT SALES CENTER MANAGER Service: ? Author Type: Nurse Practitioner Type: Progress Notes Filed: 05/22/2025 15:33 Note Text: NAME: Pablo Felix CLINIC NO.: [id number] DATE OF SERVICE: May 22, 2025 ([place]ave[place]) [...] reported side effects. Next Lupron injection is due in a couple of months with Dr. Scruggs. - Continue Xtandi 160 mg daily. - [...] HISTORY: Reverse Chronological Order 11/05/2021 CT chest/abdomen/pelvis ([facility]) Several sclerotic lesions consi (more content not included)...[facility]09-21-2025 NotePlease let him know his stress test was normal. His ECHO showed normal pumping function, his aortic valve is moderately narrow and we will need to keep an eye on this as if it worsens we will need to talk about valve replacement. Recommend follow-up ECHO in 6 months. Recommend he see's Dr. Fall for further investigation into causes of his shortness of breath. Thanks![facility]09-15-2025 Hospital Discharge instructions Patient Education 03/31/2025 10:32:10 [...] you take these medicines, you may also beprescribed other medicines to help with side effects. LHRH antagonists. These medicines also work to lower the amount of androgens made in the testicles,but they work faster than LHRH agonist medicines [...] suppression therapy is having additional treatment options. Youmay have only one type of treatment, or two or more types at the same time. Treatments may be combined to: Help with side effects. Treat advanced cancer. Where to find more information [place] [employer]: www.cancer.org National Cancer Cobb: www.cancer.gov Contact a health care provider if: [...] provider. Document Revised: 10/14/2021 Document Reviewed: 10/14/2021 Lomography Patient Education 2023 Amp[employer] Mobile. Follow Up Care 10/07/2024 10:02:12 With:KAEL JAMES, Anthony Lee, URL Address: [address] [place] [address] When: Unknown Comments:6 mos w/ Yonis KHAN [facility] 09-15-2025 NotePatient Education Oncology Hormone Suppression Therapy for Prostate [...] suppression therapy is having additional treatment options. Youmay have only one type of treatment, or two or more types at the same time. Treatments may be combined to: ??? Help with side effects. ??? Treat advanced cancer. Where to find more information ??? [place] [employer]: www.cancer.org ??? National Cancer Cobb: www.cancer.gov Contact a health care provider if: [...] are confused. ??? You (more content not included)...[facility]09-04-2025 Note Cardiovascular Medicine [facility] SUBJECTIVE Chief Complaint Patient presents with Coronary Artery Disease Denies chest pain and SOB. No recent testing. Valve Disorder Denies lightheadedness and palpitations. Hypertension Had labs in January 2025. Hyperlipidemia No recent lipid panel. Had one at the [place] about a year ago. Pablo Felix is [...] graft without angina Coronary artery disease involving nansemond indian tribe coronary artery of nansemond indian tribe heart without ang (more content not included)...[facility]08-12-2025 History of Present illness Narrative* Long Boo, ROCHELLE-ASSISTANT SALES CENTER MANAGER - 02/25/2025 10:20 AM EDT Skin Check [...] Left Posterior Neck, Left Preauricular Area, Left [place], Left Temporal Scalp, Right Forehead, Right Parotid Area, Right [place] (2) Erythematous scaly papules Patient was counseled [...] limited to risks of scarring, darker or dough maker pigmentary changes, recurrence, incomplete removal and infection. [...] Left Posterior Neck, Left Preauricular Area, Left [place], Left Temporal Scalp, Right Forehead, Right Parotid Area, Right [place] (2) Related Medications fluorouracil (Efudex) 5 % [...] (SQUAMOUS CELL CARCINOMA) OF SKIN Right [place] No evidence of recurrence at SCC scar. [...] 1 year, skin check documented in this encounterCitizens Memorial [id number] NoteHNO ID: [id number] Author: SAUL TRACEY MD Service: ? Author Type: Physician Type: Progress Notes Filed: 02/20/2025 10:48 Note Text: NAME: Pablo Felix CLINIC NO.: [id number] DATE OF SERVICE: February 20, 2025 (Denice) [...] consistent with stage IIIC (pT2b, N0, M0), Alsen 5+4 equal 9. Postop the patient's PSA [...] injections. - Continue current (more content not included)...[facility] 11-06-2024 NoteHNO ID: [id number] Author: MARCO A ESQUEDA MD Service: ? [...] mg 24 hr tablet Take by mouth. Vrplzecseuuoy-Cgvhyyif-Tdoscp (MULTIVITAMIN 50 PLUS) tab Take 1 tablet [...] Radical retropubic prostatectomy and bilateral pelvic lymphadenectomy ([facility]) Poorly differentiated prostatic adenocarcinoma of left [...] 1.58 10/25/2021 2.64 12/15 (more content not included)...[facility]03-24-2025 Note Patient Education Oncology Hormone Suppression Therapy [...] suppression therapy is having additional treatment options. Youmay have only one type of treatment, or two or more types at the same time. Treatments may be combined to: ??? Help with side effects. ??? Treat advanced cancer. Where to find more information ??? [place] [employer]: www.cancer.org ??? National Cancer Cobb: www.cancer.gov Contact a health care provider if: [...] are confused. ??? You (more content not included)...[facility]01-22-2025 Note HNO ID: [id number] Author: CHRISTO HOWARD APRN.ASSISTANT SALES CENTER MANAGER Service: ? Author Type: Nurse Practitioner Type: [...] mg 24 hr tablet Take by mouth. Vccdbngmmuexe-Unffgpyp-Aecvmp (MULTIVITAMIN 50 PLUS) tab Take 1 tablet [...] Radical retropubic prostatectomy and bilateral pelvic lymphadenectomy ([facility]) Poorly differentiated prostatic adenocarcinoma of left [...] 07/19/2021 1.58 10/25/2021 2.6 (more content not included)...[facility]01-22-2025 History of Present illness Narrative* Christo Howard, ROCHELLE.ASSISTANT SALES CENTER MANAGER - 08/07/2024 10:42 AM EST PATIENT NAME: Pablo Felix DATE: 08/08/2024 PRIMARY CARE PHYSICIAN: Dr. Jamar Fall OTHER PHYSICIANS: Dr. Anthony Scruggs, Dr. Khan, [facility] Cardiology Portions of this encounter note have been copied from the note from 05/09/2024 and has been updatedwhere appropriate, and reflect my current medical decision making from today. CC: This is a 79 year old male with metastatic prostate cancer, seen for scheduled follow-up and Xgeva. INTERIM HISTORY: Pablo Felix returns for scheduled follow-up. He remains on Xtandi 160 mg (4 tablets) daily and is tolerating it well. He denies any side effects. He receives Lupron from Dr. Winslow is next due in October. He offers [...] mg 24 hr tablet Take by mouth. Kowsjivqlismw-Igaeullm-Idgwfo (MULTIVITAMIN 50 PLUS) tab Take 1 tablet [...] Radical retropubic prostatectomy and bilateral pelvic lymphadenectomy ([facility]) Poorly differentiated prostatic adenocarcinoma of left [...] 08/01/2024 0.19 RADIOLOGY/OTHER STUDIES: 11/05/2021 CT chest/abdomen/pelvis ([facility]) Several sclerotic lesions consistent with metastatic disease. No evidence of visceral organ involvement or lymphadenopathy. 11/05/2021 Bone scan ([facility]) Multifocal osseous metastasis including the left femur at the lesser trochanter, right pubis symphysis, multiple ribs bilaterally. 01/22/2018 Nuclear bone scan ([facility]) New focal increased activity left frontal bone, left T8 vertebral body. 01/22/2018 MRI pelvis ([facility]) 4.5 cm area of T2 signal [...] high-grade prostate cancer in June 2014 (TRUS [id number]/02/2014). He underwent a radical prostatectomy on 11/05/2014. [...] which included preparing to see the patient, nkgo-pd-qxiq patient care, completing clinical documentation, obtaining and/or reviewing separately obtained history, performing a medically appropriate examination, counseling and educating the pat ient/family/caregiver, ordering medications, tests, or procedures, independently interpreting results (not separately reported), and communicating results to the patient/family/caregiver. documented in this encounterSelect [facility] [place] Telephone encounter Note * Telephone Encounter - Josemanuel Ortiz - 07/25/2024 8:23 AM EST Patient on lab schedule 08/01/24 for lab only prior to RV. Please review and place needed order. Thank you, Gabi Ortiz MLT [facility]01-09-2025 Miscellaneous Notes* Telephone Encounter - Josemanuel Ortiz - 07/25/2024 8:23 AM EST Patient on lab schedule 08/01/24 for lab only prior to RV. Please review and place needed order. Thank you, Gabi Ortiz MLT documented in this encounterSelect Medical [facility] [place]-25-2024 Evaluation note* Diagnosis Onset Date Resolution Status Admit Date Diarrhea acuteNov2023 2:02pmMalignant neoplasm of prostateJanuary 2014 acuteNov2023 2:02pmType 2 diabetes mellitus with hyperglycemiaacute June 10, 2024 2:02pmASHD (arteriosclerotic heart disease)acuteFebruary 2024 9:28amCervical spondylosisacuteFebruary 2024 9:28amEssential hypertensionacuteFebruary 2024 9:28amHypercholesterolemiaacuteFebruary 2024 9:28amMalignant neoplasm of prostateJanuary cuteFebruary 2024 9:28amMedicare annual wellness visit, subsequentacuteFebruary 2024 9:28amNonrheumatic aortic valve stenosisacuteFebruary 2024 9:28amOSA (obstructive sleep apnea)acuteFebruary 2024 9:28amType 2 diabetes mellitus with hyperglycemiaacuteFebruary 2024 9:28am [facility] Work Phone: 1(259) 146-980810-23-2024 Telephone encounter Note* Telephone Encounter - Aida Luo RPh - 05/08/2024 8:53 AM EDT This prescription confirms Pablo' re-enrollment in the Xtandi free drug program for 2024. Thank you Josh Luo PharmD, BCOP [facility] Work Phone: 1(585) 361-186210-23-2024 Miscellaneous Notes* Telephone Encounter - Aida Luo RPh - 05/08/2024 8:53 AM EDT This prescription confirms Pablo' re-enrollment in the Xtandi free drug program for 2024. Thank you Josh Luo PharmD, BCOP documented in this encounterSelect Medical [facility] [place]-23-2024 History of Present illness Narrative* Marco A [...] mg 24 hr tablet Take by mouth. Sjuymfdzaqfwv-Ibkwdlqk-Rxrhhi (MULTIVITAMIN 50 PLUS) tab Take 1 tablet [...] Radical retropubic prostatectomy and bilateral pelvic lymphadenectomy ([facility]) Poorly differentiated prostatic adenocarcinoma of left [...] 05/03/2024 0.18 RADIOLOGY/OTHER STUDIES: 11/05/2021 CT chest/abdomen/pelvis ([facility]) Several sclerotic lesions consistent with metastatic disease. No evidence of visceral organ involvement or lymphadenopathy. 11/05/2021 Bone scan ([facility]) Multifocal osseous metastasis including the left femur at the lesser trochanter, right pubis symphysis, multiple ribs bilaterally. 01/22/2018 Nuclear bone scan ([facility]) New focal increased activity left frontal bone, left T8 vertebral body. 01/22/2018 MRI pelvis ([facility]) 4.5 cm area of T2 signal [...] high-grade prostate cancer in June 2014 (TRUS [id number]/02/2014). He underwent a radical prostatectomy on 11/05/2014. Pathology consistent with stage IIIC (pT2b, N0, M0), Alsen 5+4 equal 9. Postop the patient's PSA [...] CC: Dr. Anthony Scruggs documented in this encounterSelect Medical [facility] [place]10-04-[facility]24 Hospital Discharge instructions Patient Education 04/19/2024 08:45:03 [...] similar to normal prostate cells (well differentiated). Alsen 7: This indicates that the cancer cells [...] stress of having cancer. General instructions Take yspg-xsu-ryrucls and prescription medicines only as told by your health care provider. If you have to go to the hospital, notify your cancer specialist (oncologist). Keep all follow-up visits. This is important. Where to find more information [place] [employer]: www.cancer.org [place] Society of Clinical Oncology: www.cancer.net National Cancer Cobb: www.cancer.gov Contact a health care provider if: [...] provider. Document Revised: 09/29/2021 Document Reviewed: 09/29/2021 Lomography Patient Education 2023 Amp'd Mobile. Follow Up Care 10/20/2023 09:58:12 With:KAEL JAMES, Anthony Lee, URL Address: [address] [place] [address]- When: Unknown [facility] 10-04-2024 NotePatient Education Oncology Prostate Cancer [...] intothe prostate gla (more content not included)...[facility]09-16-2024 Telephone encounter Note* Telephone Encounter - Aida Luo, [facility] - 04/01/2024 3:59 PM EDT Recd phone call from [facility] that they are unable to obtain the Xtandi 80mg tablets a thistime and requested a script for the 40 mg dosing. Order pending Josh Luo PharmD, BCOP [facility] Work Phone: 1(704) 860-597109-16-2024 Miscellaneous Notes* Telephone Encounter - Aida Luo RPh - 04/01/2024 3:59 PM EDT Recd phone call from [facility] that they are unable to obtain the Xtandi 80mg tablets a thistime and requested a script for the 40 mg dosing. Order pending Josh Luo PharmD, BCOP documented in this encounterSelect Medical [facility] [place]07-19-2024 Instructions* Patient Instructions* Lynne Rajan APRN.CNP - [...] troubles swallowing, increasing confusion documented in this encounterSelect Medical [facility], [place]07-19-2024 History of Present illness Narrative* Lynne Rajan [...] mg 24 hr tablet Take by mouth. Auorhcnjmbwwm-Evvuetal-Dzevld (MULTIVITAMIN 50 PLUS) tab Take 1 tablet [...] Radical retropubic prostatectomy and bilateral pelvic lymphadenectomy ([facility]) Poorly differentiated prostatic adenocarcinoma of left [...] 01/25/2024 0.15 RADIOLOGY/OTHER STUDIES: 11/05/2021 CT chest/abdomen/pelvis ([facility]) Several sclerotic lesions consistent with metastatic disease. No evidence of visceral organ involvement or lymphadenopathy. 11/05/2021 Bone scan ([facility]) Multifocal osseous metastasis including the left femur at the lesser trochanter, right pubis symphysis, multiple ribs bilaterally. 01/22/2018 Nuclear bone scan ([facility]) New focal increased activity left frontal bone, left T8 vertebral body. 01/22/2018 MRI pelvis ([facility]) 4.5 cm area of T2 signal [...] high-grade prostate cancer in June 2014 (TRUS [id number]/02/2014). He underwent a radical prostatectomy on 11/05/2014. [...] suppressed at <12. Bone scan obtained at [facility] 11/05/2021 revealed multiple bone metastases. CT [...] 3 months with labs, Xgeva, and Dr. Eqsueda follow up. Lynne Rajan APRN.CNP Hematology/Oncology [facility] [phone] CC: Dr. Anthony Scruggs documented in this encounterSelect Medical [facility] [place]04-18-2024 History of Present illness Narrative* Christo Howard APRN.CNP - 11/02/2023 9:28 AM EDT PATIENT NAME: Pablo Felix DATE: 11/02/2023 PRIMARY CARE PHYSICIAN: Dr. Jamar Fall OTHER PHYSICIANS: Dr. Anthnoy Scruggs, Dr. Khan, [facility] Cardiology [...] mg 24 hr tablet Take by mouth. Nnfkzfmqktdpx-Hhkkxril-Tcpjdr (MULTIVITAMIN 50 PLUS) tab Take 1 tablet [...] C (97.8 F) (Temporal) Resp 16 Ht 167.6cm (5' 5.98 ) Wt 92.9 kg (204 [...] Radical retropubic prostatectomy and bilateral pelvic lymphadenectomy ([facility]) Poorly differentiated prostatic adenocarcinoma of left [...] 10/29/2023 0.16 RADIOLOGY/OTHER STUDIES: 11/05/2021 CT chest/abdomen/pelvis ([facility]) Several sclerotic lesions consistent with metastatic disease. No evidence of visceral organ involvement or lymphadenopathy. 11/05/2021 Bone scan ([facility]) Multifocal osseous metastasis including the left femur at the lesser trochanter, right pubis symphysis, multiple ribs bilaterally. 01/22/2018 Nuclear bone scan ([facility]) New focal increased activity left frontal bone, left T8 vertebral body. 01/22/2018 MRI pelvis ([facility]) 4.5 cm area of T2 signal [...] high-grade prostate cancer in June 2014 (TRUS [id number]/02/2014). He underwent a radical prostatectomy on 11/05/2014. [...] suppressed at <12. Bone scan obtained at [facility] 11/05/2021 revealed multiple bone metastases. CT [...] would reconsider referral to GI. Christo Howard APRN.ASSISTANT SALES CENTER MANAGER CC: Dr. Anthony Scruggs I spent a total of 30 minutes on the date of the service which included preparing to see the patient, rthv-vw-icuo patient care, completing clinical documentation, obtaining and/or reviewing separately obtained history, performing a medically appropriate examination, counseling and educating the pat ient/family/caregiver, ordering medications, tests, or procedures, independently interpreting results (not separately reported), and communicating results to the patient/family/caregiver. documented in this encounterSelect Medical [facility] [place]-2024 Hospital Discharge instructions Patient Education 10/20/2023 09:54:58 [...] greater thelikelihood that the cancer will spread. Alsen 6 or lower: This indicates that the cancer cells look similar to normal prostate cells (well differentiated). Lucrecia 7: This indicates that the cancer cells look somewhat similar to normal prostate cells (moderately differentiated). Alsen 8, 9, or 10: This indicates that [...] stress of having cancer. General instructions Take ecib-yju-fnxdqqj and prescription medicines only as told by your health care provider. If you have to go to the hospital, notify your cancer specialist (oncologist). Keep all follow-up visits. This is important. Where to find more information [place] [employer]: www.cancer.org [place] Society of Clinical Oncology: www.cancer.net National Cancer Cobb: www.cancer.gov Contact a health care provider if: [...] provider. Document Revised: 09/29/2021 Document Reviewed: 09/29/2021 Lomography Patient Education 2022 Amp'd Mobile. Follow Up Care 04/17/2023 09:25:02 With:KAEL JAMES, Anthony Lee, URL Address: [address] [place] [address]- When: Unknown [facility] 02-12-2024 History of Present illness Narrative* Long Boo, ROLL FORMING 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 - 08/28/2023 11:25 AM EST Images from [...] limited to risks of scarring, darker or dough maker pigmentary changes, recurrence, incomplete removal and infection. [...] biopsy results, 6 months documented in this encounterCitizens Memorial [id number] Evaluation note* Encounter Date Diagnosis Assessment Notes [...] reviewed and amended by provider signed below. Aug,SHD (arteriosclerotic heart disease) (ICD-10 - I25.10)This patient is stable without activity related CP, dyspnea or lightheadedness. They are instructedto continue exercise and AHA diet plan. Continue secondary prevention measures. Aug,Type 2 diabetes mellitus with hyperglycemia, without long-term current use of insulin (ICD-10 - E11.65)This patient is following a comprehensive diabetic treatment [...] office visit. 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 They are also encouraged to continue exercise to achieve/maintain a normal BMI. Patient is instructed on home BP measurements: - rest for 5 minutes w/o talking.- positioned w/ feet on floor and arm supported.- average best 2/3 readings w/ goal < 135/85.- update office w/ homereadings in 2 weeks. Aug,Elevated cholesterol (ICD-10 - E78.00)Instructed on diet and exercise with continued statin therapy.Discussed the beneficial effects of lo wering cholesterol in reducing the risk for cerebrovascular and cardiovascular disease. Aug,OSA (obstructive sleep apnea) (ICD-10 - G47.33)This patient is aware of the benefits associated with GRADY: With continued use, the patient reduces the risk for MT, CVA, HTN, cardiac dysrhythmias and sudden cardiac deaths.The patient is also aware of the association between GRADY and morning headaches, daytime somnolence, fatigue and obesity, whichalso has been improved with continued use.The patient is compliant with treatment, wearing the equipment every night for greater than 4 hours.The patient is instructed to continue use of the CPAP forOSA treatment. Aug,Malignant neoplasm of prostate (ICD-10 - C61)No s/s of progression. Latest PSA suppressed. 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 PSA suppressed f/u Oncology Aug,Vasomotor rhinitis (ICD-10 - J30.0)Continue Atrovent as needed. No further f/u scheduled w/ ENT. Sinus retention cyst and frontal sinus mass benign [employer] Other 01-19-2024 Evaluation note* Encounter Date Diagnosis Assessment Notes Treatment Notes Treatment Clinical Notes Jul, Pancreatic mass (ICD-10 - K86.89 ) MRCP: 4cm mass - 2022 - previously completed E[facility] bx at [facility] - stable in size from 2021 [employer] Other 11-14-2023 Evaluation note* Encounter Date Diagnosis Assessment Notes Treatment Notes Treatment Clinical Notes May, Mass of nasal sinus (ICD-10 - J3 4.89) Incidental finding on XR orbits. He c/o right sided congestion and rhinorrhea. He denies facial pressure or pain. May,Impacted cerumen of right ear (ICD-10 - H61.21)Offered to irrigate but he hasn't treated w/ Debrox or mineral oil, which may result in difficulty r emoving. Deferred to ENT since scheduling appt for sinus mass [employer] Other 10-16-2023 Evaluation note* Encounter Date Diagnosis [...] 3-6mo or should he be referred for repeatEUS/bx Apr,Nausea (ICD-10 - R11.0)Diet instructions. May be due to chemotherapy and/or Metformin. May be due to stress May be due to PUD - suggest starting PPI Apr,Lower abdominal pain (ICD-10 - R10.30)Slowly improving, lower abdomen and not interfering w/ ADL, bowel/bladder function. Apr,Malignant neoplasm of prostate (ICD-10 - C61)Stable w/ declining PSA. Xtandi may be contributing to symptoms. 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 Lwoimfuxougqk-Mauwvglb-Tycbxy (MULTIVITAMIN 50 PLUS) tab Take 1 tablet [...] Radical retropubic prostatectomy and bilateral pelvic lymphadenectomy ([facility]) Poorly differentiated prostatic adenocarcinoma of left [...] 04/24/2023 0.12 RADIOLOGY/OTHER STUDIES: 11/05/2021 CT chest/abdomen/pelvis ([facility]) Several sclerotic lesions consistent with metastatic disease. No evidence of visceral organ involvement or lymphadenopathy. 11/05/2021 Bone scan ([facility]) Multifocal osseous metastasis including the left femur at the lesser trochanter, right pubis symphysis, multiple ribs bilaterally. 01/22/2018 Nuclear bone scan ([facility]) New focal increased activity left frontal bone, left T8 vertebral body. 01/22/2018 MRI pelvis ([facility]) 4.5 cm area of T2 signal [...] high-grade prostate cancer in June 2014 (TRUS [id number]/02/2014). He underwent a radical prostatectomy on 11/05/2014. Pathology consistent with stage IIIC (pT2b, N0, M0), Alsen 5+4 equal 9. Postop the patient's PSA [...] suppressed at <12. Bone scan obtained at [facility] 11/05/2021 revealed multiple bone metastases. CT [...] scan. Christo Howard APRN.CNP CC: Dr. Anthony Srcuggs I spent a total of 30 minutes on the date of the service which included preparing to see the patient, hoph-rx-nfms patient care, completing clinical documentation, obtaining and/or reviewing separately obtained history, performing a medically appropriate examination, counseling and educating the pat ient/family/caregiver, ordering medications, tests, or procedures, independently interpreting results (not separately reported), and communicating results to the patient/family/caregiver. documented in this encounterCleveland [id number] Evaluation note* Encounter Date Diagnosis Assessment Notes Treatment Notes Treatment Clinical Notes Apr, Pancreatic mass (ICD-10 - K86.89 ) [employer] Other [id number] Hospital Discharge instructions Patient Education 04/17/2023 09:18:19 [...] under a microscope. This is called the Alsen score and the total score can range from 6 10, indicating how likely it is that the cancer will spread (metastasize) to other parts of the body. The higher the score, the greater thelikelihood that the cancer will spread. Alsen 6 or lower: This indicates that the cancer cells look similar to normal prostate cells (well differentiated). Alsen 7: This indicates that the cancer cells look somewhat similar to normal prostate cells (moderately differentiated). Alsen 8, 9, or 10: This indicates that [...] stress of having cancer. General instructions Take dvnb-ozb-pdtrmuk and prescription medicines only as told by your health care provider. If you have to go to the hospital, notify your cancer specialist (oncologist). Keep all follow-up visits. This is important. Where to find more information [place] [employer]: www.cancer.org [place] [employer]: www.cancer.net [employer]: www.cancer.gov Contact a health care provider if: [...] provider. Document Revised: 09/29/2021 Document Reviewed: 09/29/2021 [employer] Patient Education 2022 [employer]. Follow Up Care 10/28/2022 08:37:57 With:KAEL JAMES, Anthony Lee, URL Address: [facility] [address] , [place] [phone] When: Unknown Comments:6 mos w/ PSA (and possible Lupron) [facility] [place] 09-27-2023 Evaluation note* Encounter Date Diagnosis Assessment Notes Treatment Notes Treatment Clinical Notes Mar, Pancreatic mass (ICD-10 - K86.89 ) [employer] Other 09-20-2023 Evaluation note* Encounter Date Diagnosis Assessment Notes Treatment Notes Treatment Clinical Notes Mar, Right upper quadrant abdominal p ain (ICD-10 - R10.11) Diet instructions Lab to r/o acute infection, cholecystitis, pancreatitis GBUS vs CT abd based on results BLand, low fat diet Mar,Nausea (ICD-10 - R11.0)[place] , small/frequent feedings. Pepcid, Prilosec, Tums as needed. Declines Rx for Zoloft. May require EGD Mar,Type 2 diabetes mellitus with hyperglycemia, without long-term current use of insulin (ICD-10 - E11.65)This patient is following a comprehensive diabetic treatment [...] Microalbumin, Dilated eye exam and Foot exam [employer] Other 08-30-2023 Evaluation note* Encounter Date Diagnosis Assessment Notes Treatment Notes Treatment Clinical Notes Feb, ASHD (arteriosclerotic heart dis ease) (ICD-10 - I25.10) This patient is stable without activity related CP, dyspnea or lightheadedness. They are instructedto continue exercise and AHA diet plan. 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 They are also encouraged to continue exercise to achieve/maintain a normal BMI. Feb,Elevated cholesterol (ICD-10 - E78.00)Instructed on diet and exercise with continued statin therapy.Discussed the beneficial effects of lo wering cholesterol in reducing the risk for cerebrovascular and cardiovascular disease. Feb,OSA (obstructive sleep apnea) (ICD-10 - G47.33)This patient is aware of the benefits associated with GRADY: With continued use, the patient reduces the risk for MT, CVA, HTN, cardiac dysrhythmias and sudden cardiac deaths.The patient is also aware of the association between GRADY and morning headaches, daytime somnolence, fatigue and obesity, whichalso has been improved with continued use.The patient is compliant with treatment, wearing the equipment every night for greater than 4 hours.The patient is instructed to continue use of the CPAP forOSA treatment. 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 They are instructed to reduce calories, portion sizes and snacks. It is recommended that they exercise for 30 minutes, 3-5 times weekly. Feb,ody mass index [BMI] 32.0-32.9, adult (ICD-10 - Z68.32) Feb,OtherThis patient has been instructed on a low-fat, high-fiber diet. They are instructed to reduce calories, portion sizes and snacks. It is recommended that they exercise for 30 minutes, 3-5 times weekly. [employer] Other 07-23-2023 Evaluation note* Encounter Date Diagnosis Assessment Notes Treatment Notes Treatment Clinical Notes Jan, Left bundle-branch block, unspec ified (ICD-10 - I44.7) [employer] Other 07-20-2023 History of Present illness Narrative* [...] mg 24 hr tablet Take by mouth. Llmvmvyxzmqsm-Uwjnnmmk-Mholkq (MULTIVITAMIN 50 PLUS) tab Take 1 tablet [...] Radical retropubic prostatectomy and bilateral pelvic lymphadenectomy ([facility]) Poorly differentiated prostatic adenocarcinoma of left [...] 10/25/2022 0.13 RADIOLOGY/OTHER STUDIES: 11/05/2021 CT chest/abdomen/pelvis ([facility]) Several sclerotic lesions consistent with metastatic disease. No evidence of visceral organ involvement or lymphadenopathy. 11/05/2021 Bone scan ([facility]) Multifocal osseous metastasis including the left femur at the lesser trochanter, right pubis symphysis, multiple ribs bilaterally. 01/22/2018 Nuclear bone scan ([facility]) New focal increased activity left frontal bone, left T8 vertebral body. 01/22/2018 MRI pelvis ([facility]) 4.5 cm area of T2 signal [...] high-grade prostate cancer in June 2014 (TRUS [id number]/02/2014). He underwent a radical prostatectomy on 11/05/2014. [...] suppressed at <12. Bone scan obtained at [facility] 11/05/2021 revealed multiple bone metastases. CT [...] CC: Dr. Anthony Scruggs documented in this encounterSelect Medical [facility], [place]04-27-[facility] History of Present illness Narrative* Christo Howard APRN.[employer] - 11/10/2022 10:00 AM EDT PATIENT NAME: [...] mg 24 hr tablet Take by mouth. Urqdwkitgtwam-Rpdqcxmz-Oxkqey (MULTIVITAMIN 50 PLUS) tab Take 1 tablet [...] Radical retropubic prostatectomy and bilateral pelvic lymphadenectomy ([facility]) Poorly differentiated prostatic adenocarcinoma of left [...] PSA 0.13 RADIOLOGY/OTHER STUDIES: 11/05/2021 CT chest/abdomen/pelvis ([facility]) Several sclerotic lesions consistent with metastatic disease. No evidence of visceral organ involvement or lymphadenopathy. 11/05/2021 Bone scan ([facility]) Multifocal osseous metastasis including the left femur at the lesser trochanter, right pubis symphysis, multiple ribs bilaterally. 01/22/2018 Nuclear bone scan ([facility]) New focal increased activity left frontal bone, left T8 vertebral body. 01/22/2018 MRI pelvis ([facility]) 4.5 cm area of T2 signal [...] high-grade prostate cancer in June 2014 (TRUS [id number]/02/2014). He underwent a radical prostatectomy on 11/05/2014. Pathology consistent with stage IIIC (pT2b, N0, M0), Alsen 5+4 equal 9. Postop the patient's PSA [...] suppressed at <12. Bone scan obtained at [facility] 11/05/2021 revealed multiple bone metastases. CT [...] which included preparing to see the patient, elsh-zr-hruz patient care, completing clinical documentation, obtaining and/or reviewing separately obtained history, performing a medically appropriate examination, counseling and educating the pat ient/family/caregiver, ordering medications, tests, or procedures, independently interpreting results (not separately reported), and communicating results to the patient/family/caregiver. documented in this encounterSelect Medical [facility], [place]03-03-2023 Evaluation note* Encounter Date Diagnosis Assessment Notes Treatment Notes Treatment Clinical Notes Sep, Pain in right shoulder (ICD-10 - M25.511) IA injection w/o complications. 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 They are instructedto continue exercise and AHA diet plan. Aug,Encounter for annual wellness exam in Medicare patient (ICD-10 - Z00.00)Personalized health advice was given to the beneficiary including a written plan for screenings discussed and provided. Advanced care planning reviewed and/or information given as requested. Additional counseling was provided here today in regards to, [ ]. The above visit was performed by [ ] underdirect supervision of [ ]. Document reviewed and amended by provider signed below. Healthy diet and exercise. Reviewed age-appropriate preventive testing recommended. Aug,Nonrheumatic aortic valve stenosis (ICD-10 - I35.0)04/2022 Echo: ROGER 1.13, Velocity 324, /Continue to control BP. No CP, tachycardia or syncope. 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 They are also encouraged to continue exercise to achieve/maintain a normal BMI. Aug,Elevated cholesterol (ICD-10 - E78.00)Diet and exercise with continued statin therapy. Aug,OSA (obstructive sleep apnea) (ICD-10 - G47.33)This patient is aware of the benefits associated with GRADY: With continued use, the patient reduces the risk for MT, CVA, HTN, cardiac dysrhythmias and sudden cardiac deaths.The patient is also aware of the association between GRADY and morning headaches, daytime somnolence, fatigue and obesity, whichalso has been improved with continued use.The patient is compliant with treatment, wearing the equipment every night for greater than 4 hours.The patient is instructed to continue use of the CPAP forOSA treatment. Aug,Type 2 diabetes mellitus with hyperglycemia, without long-term current use of insulin (ICD-10 - E11.65)This patient is following a comprehensive diabetic treatment [...] office visit. 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 PT, IA injection discussed Symptoms not suggestive of rotator cuff tear Aug,Obesity (BMI 30-39.9) (ICD-10 - E66.9)This patient has been instructed on a low-fat, high-fiber diet. They are instructed to reduce calori es, portion sizes and snacks. It is recommended that they exercise for 30 minutes, 3-5 times weekly. Aug,rostate cancer (ICD-10 - C61)Receiving Lupron along w/ additional oral chemotherapy from [facility]. Also receiving Boniva Aug,OtherPersonalized health advice was given to the beneficiary including a written plan for screenings discussed and provided. Advanced care planning reviewed and/or information given as requested. Additional counseling was provided here today in regards to, [ ]. The above visit was performed by [ ] underdirect supervision of [ ]. Document reviewed and amended by provider signed below. [employer] Other 01-26-2023 History of Present illness Narrative* [...] mg 24 hr tablet Take by mouth. Mltbtkiabnlot-Fgqcyncv-Xmxcpg (MULTIVITAMIN 50 PLUS) tab Take 1 tablet [...] Radical retropubic prostatectomy and bilateral pelvic lymphadenectomy ([facility]) Poorly differentiated prostatic adenocarcinoma of left [...] 08/11/2022 PSA RADIOLOGY/OTHER STUDIES: 11/05/2021 CT chest/abdomen/pelvis ([facility]) Several sclerotic lesions consistent with metastatic disease. No evidence of visceral organ involvement or lymphadenopathy. 11/05/2021 Bone scan ([facility]) Multifocal osseous metastasis including the left femur at the lesser trochanter, right pubis symphysis, multiple ribs bilaterally. 01/22/2018 Nuclear bone scan ([facility]) New focal increased activity left frontal bone, left T8 vertebral body. 01/22/2018 MRI pelvis ([facility]) 4.5 cm area of T2 signal [...] high-grade prostate cancer in June 2014 (TRUS ycltlj4007/02/2014). He underwent a radical prostatectomy on 11/05/2014. [...] suppressed at <12. Bone scan obtained at [facility] 11/05/2021 revealed multiple bone metastases. CT [...] CC: Dr. 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 Initiated Tramadol w/ caution, no driving, may cause sedation. Jul,cute pain of left shoulder (ICD-10 - M25.512)ROM exercises, Tylenol and Tramadol as needed. Jul,nnual physical exam (ICD-10 - Z00.00) [employer] Other 10-28-2022 Hospital Discharge instructions Patient Education [...] who: Are older than age 65. Are -[place]. Are obese. Have a family history of [...] cells. Follow these instructions at home: Take hskd-rtk-tlgrntm and prescription medicines only as told by [...] 07/03/2006 Document Revised: 06/15/2018 Document Reviewed: 03/13/2017 [employer] Patient Education [employer]. Follow Up Care 11/08/2021 14:14:20 With:KAEL JAMES, Anthony Lee, URL Address: [address] [place], [place] [id number]- When: Unknown [facility] 10-27-2022 Nurse Note* Sheela Toney - 05/12/2022 10:43 AM EDT AUA=2 documented in this encounterSelect Medical [facility], [place]10-27-2022 History of Present illness Narrative* Zach Khan MD - 05/12/2022 10:41 AM EDT Radiation Oncology - Follow Up Note PATIENT NAME: Pablo Felix PATIENT DIAGNOSIS: Prostate adenocarcinoma, initial clinical stage II, initial PSA 1.07, biopsy Alsen score 9(4,5), s/p prostatectomy for 11/05/14 pathologic stage IIIC [id number], Alsen 9 (5, 4) now with rising PSA [...] Each once daily. To test blood sugar Inlviznteejrz-Ocvaoiir-Xiwqbv (MULTIVITAMIN 50 PLUS) tab Take 1 tablet [...] clinical stage II, initial PSA 1.07, biopsy Alsen score 9(4,5), s/p prostatectomy for 11/05/14 pathologic stage IIIC [id number], Lucrecia 9 (5, 4) withrising PSA, subsequently [...] Zach Khan MD cc: Jamar Fall MD ([facility]) Portions of the above note extracted and edited from previous visit as well as active information included in the EMR. documented in this encounterSelect Medical [facility], [place]10-17-2022 Miscellaneous Notes* Telephone Encounter - Sheela Toney - 05/02/2022 10:48 AM EDT Patient coming in on 05/12/22 for follow up with labs. Please add lab orders. Thanks, Sheela Toney MA documented in this encounterSelect Medical Cleveland [facility], [place]08-04-2022 History of Present illness Narrative* Marco A [...] Each once daily. To test blood sugar Nxjmiuyxzzzqi-Uuoszvrt-Bmsudl (MULTIVITAMIN 50 PLUS) tab Take 1 tablet [...] Radical retropubic prostatectomy and bilateral pelvic lymphadenectomy ([facility]) Poorly differentiated prostatic adenocarcinoma of left [...] PSA 0.14 RADIOLOGY/OTHER STUDIES: 11/05/2021 CT chest/abdomen/pelvis ([facility]) Several sclerotic lesions consistent with metastatic disease. No evidence of visceral organ involvement or lymphadenopathy. 11/05/2021 Bone scan ([facility]) Multifocal osseous metastasis including the left femur at the lesser trochanter, right pubis symphysis, multiple ribs bilaterally. 01/22/2018 Nuclear bone scan ([facility]) New focal increased activity left frontal bone, left T8 vertebral body. 01/22/2018 MRI pelvis ([facility]) 4.5 cm area of T2 signal [...] high-grade prostate cancer in June 2014 (TRUS [id number]/02/2014). He underwent a radical prostatectomy on 11/05/2014. Pathology consistent with stage IIIC (pT2b, N0, M0), Alsen 5+4 equal 9. Postop the patient's PSA [...] at <12. Staging scans were obtained at [facility] on 11/05/2021. Bone scan revealed multiple [...] CC: Dr. Anthony Scruggs documented in this encounterSelect Medical [facility], [place]05-23-2022 Miscellaneous Notes* Telephone Encounter - Clementine Aguilar [...] that he has the phone number to [facility]. No additional questionsnoted. Clementine Aguilar RN documented in this encounterSelect Medical [facility], [place]04-28-2022 History of Present illness Narrative* MarcoA Esqueda MD - 11/11/2021 7:42 AM EDT [...] visit here he underwent staging scans at [facility] on 11/05/2021. Bone scan revealed multiple [...] Each once daily. To test blood sugar Hdlzhtsojvqfk-Crwiixuu-Nwbvdo (MULTIVITAMIN 50 PLUS) tab Take 1 tablet [...] Radical retropubic prostatectomy and bilateral pelvic lymphadenectomy ([facility]) Poorly differentiated prostatic adenocarcinoma of left [...] PSA 2.64 RADIOLOGY/OTHER STUDIES: 11/05/2021 CT chest/abdomen/pelvis ([facility]) Several sclerotic lesions consistent with metastatic disease. No evidence of visceral organ involvement or lymphadenopathy. 11/05/2021 Bone scan ([facility]) Multifocal osseous metastasis including the left femur at the lesser trochanter, right pubis symphysis, multiple ribs bilaterally. 01/22/2018 Nuclear bone scan ([facility]) New focal increased activity left frontal bone, left T8 vertebral body. 01/22/2018 MRI pelvis ([facility]) 4.5 cm area of T2 signal [...] high-grade prostate cancer in June 2014 (TRUS [id number]/02/2014). He underwent a radical prostatectomy on 11/05/2014. [...] at <12. Staging scans were obtained at [facility] on 11/05/2021. Bone scan revealed multiple [...] CC: Dr. Anthony Scruggs documented in this encounterSelect Medical [facility], [place]04-27-2022 Miscellaneous Notes* Telephone Encounter - Clementine Aguilar RN - 11/10/2021 3:03 PM EDT Pt reports his Enzalutamide was delivered. Will start this evening. Clementine Aguilar RN documented in this encounterSelect Medical [facility], [place]04-26-2022 Miscellaneous Notes* Telephone Encounter - Clementine Aguilar RN - 11/09/2021 2:31 PM EDT Per pt, his Enzalutamide is scheduled to arrive tomorrow morning. Patient started/will start taking Enzalutamide on 11/10/21. Clementine Aguilar RN documented in this encounterSelect Medical Cleveland [facility], [place]04-25-2022 Hospital Discharge instructions Patient Education 11/08/2021 14:10:09 [...] who: Are older than age 65. Are -[place]. Are obese. Have a family history of [...] cells. Follow these instructions at home: Take ndsc-zqc-cvdhwng and prescription medicines only as told by [...] 07/03/2006 Document Revised: 06/15/2018 Document Reviewed: 03/13/2017 [employer] Patient Education 2020 [employer]. Follow Up Care 08/23/2021 13:26:07 With:KAEL JAMES, Anthony Lee, URL Address: [facility] [address] [place] [phone] When:05/10/2022 [facility] 04-21-2022 Miscellaneous Notes* Telephone Encounter - Clementine Aguilar RN - 11/04/2021 2:53 PM EDT Pt would like to get the 4th Covid vaccine when it's due. Dr Esqueda notified and gives the ok to proceed when due. Pt notified and verbalizes understanding. Clementine Aguilar RN documented in this encounterSelect Medical [facility], [place]04-21-2022 History of Present illness Narrative* Clementine Aguilar [...] Information handout: Enzalutamide, Specialty Pharmacy Information : [facility] Pharmacy phone numbers: Yes [...] Aguilar RN * Aida Luo, [facility] - 11/04/2021 2:49 PM EDT Images from the original note were not included. [facility] Department of Pharmacy Oncology Pharmacy Medication Education [...] Each once daily. To test blood sugar Hbnvynxtsfrld-Acsfbhxi-Lzkgyc (MULTIVITAMIN 50 PLUS) tab Take 1 tablet [...] of chemotherapy NA - Followed up with [facility] for delivery of Free Xtandi Readiness [...] patient Zuleymaalyssachaka Luo RPh documented in this encounterSelect Medical [facility], [place]04-21-2022 Miscellaneous Notes* Telephone Encounter - Aida Luo RPh - 11/04/2021 10:54 AM EDT Confirmed with [employer] approval date 11/01/21 and that the specialty pharmacy, [facility], will reach out to Mr Felix 3-5 business days from approval date. If he does not hear from them by 11/10/21 we should call [facility] @ option 2. I informed Mr Felix of this, he has an appt 11/12/21 and said if he has not heard from them by then he will get their phone number from us. Rubin Luo RPh documented in this encounterSelect Medical [facility], [place]04-19-2022 Miscellaneous Notes* Telephone Encounter - Jennifer Amaro [...] him know to be expecting this call. [facility] will call patient to set up delivery for all fills. I do not see where he has had chemo education yet. Alba does he need to be set up with you? Thanks Rubin Luo RP * Telephone Encounter - Andreina Castillo RP - 11/01/2021 10:55 AM EDT Patient called today. We completed a conference call with [employer] - they were ableto obtain [...] We will proceed free drug application through [employer] Pharmacy to reach out to patient 10/29/2021 to notify. Brina Wang RPh * Telephone Encounter - Brina Wang RPh - 10/28/2021 3:08 PM EDT Ambulatory Pharmacy Prior Authorization Note Provider Intervention Required?: No- Pharmacy completed on your behalf. Drug: Xtandi Cover My Meds Carter: [id number] Determination: Approved Prior Authorization/Case #: [id number] Prior Authorization Expiration: 10/28/2022 Time to PA Submission in CMM: 15 min Time to PA Determination in CMM: Same day Additional Information: Co-Pay $3,111.12 For questions relating to this submission, please contact [facility] at [phone] documented [facility] [place] Miscellaneous Notes* Telephone Encounter - Zohra Avila PA-C - 11/02/2021 12:00 PM EDT CBC and CMP orders placed Zohra Avila PA-C * Telephone Encounter - Katie Rosen MA - 11/02/2021 11:57 AM EDT Patient has an appt on 11/11/21. Would you like labs, if so place orders. Katie Rosen MA documented in this encounter[facility] [place] Miscellaneous Notes* Telephone Encounter - Clementine Aguilar [...] assistance program. Thanks, RADHA documented in this encounter[facility] [place] Miscellaneous Notes* Telephone Encounter - Clementine Aguilar [...] back. Clementine Aguilar RN documented in this encounter[facility] [place] Miscellaneous Notes* Telephone Encounter - Clementine Aguilar RN - 10/28/2021 1:12 PM EDT This encounter was opened in error. @[email or web address]@ documented in this encounter[facility] [place]22 Miscellaneous Notes* Telephone Encounter - Christo Howard APRN.CNP - 10/25/2021 4:05 PM EDT Hold off for now. Christo Howard APRN.ASSISTANT SALES CENTER MANAGER * Telephone Encounter - Katie Rosen MA - 10/25/2021 11:01 AM EDT If patient needs labs, please sign/place orders for 10/28/21. Thanks. Katie Rosen MA documented in this encounter[facility] [place] Evaluation note* Diagnosis Onset Date Resolution Status ASHD (arteriosclerotic heart disease) acuteCervical spondylosisacuteEssential hypertensionacuteHypercholesterolemia acuteMalignant neoplasm of prostateJanuary cuteNonrheumatic aortic valve stenosisacuteOSA (obstructive sleep apnea)acuteType 2 diabetes mellitus with hyperglycemiaacute [facility] Work Phone: Evaluation + Plan note Future Appointments Appointment Date:05/13/2022 08:45:00 AM Scheduled Provider:Anthony SCRUGGS MD Location:[facility] Appointment Type:URO Office Visit Diagnostic Tests Pending * PSA Total 11/08/21 Future Scheduled Tests Laboratory* Basic Metabolic Panel 09/20/21 [facility] evaluation + Plan note Future Appointments Appointment Date:10/28/2022 08:00:00 AM Scheduled Provider:Anthony SCRUGGS MD Location:[facility] Appointment Type:URO Office Visit Diagnostic Tests Pending * PSA Total 09/14/22 Future Scheduled Tests Laboratory* Basic Metabolic Panel 09/20/21 [facility] evaluation + Plan note Future Appointments Appointment Date:10/20/2023 08:45:00 AM Scheduled Provider:Anthony SCRUGGS MD Location:[facility] Appointment Type:URO Office Visit Diagnostic Tests Pending * PSA Total 04/17/23 [facility] evaluation + Plan note Future Appointments Appointment Date:04/19/2024 08:00:00 AM Scheduled Provider:Anthoyn SCRUGGS MD Location:[facility] Appointment Type:URO Office Visit Diagnostic Tests Pending * PSA Total 02/15/24 [facility] evaluation + Plan note Future Appointments Appointment Date:10/07/2024 09:15:00 AM Scheduled Provider:[facility] Type:[facility]O Office Visit Diagnostic Tests Pending * PSA Total 08/17/24 [facility] evaluation + Plan note Future Appointments Appointment Date:09/22/2025 09:30:00 AM Scheduled Provider: Location:[facility] Appointment Type:URO Nurse Visit Appointment Date:09/29/2025 11:15:00 AM Scheduled Provider:Anthony SCRUGGS [facility] Type:[facility]O Office Visit Diagnostic Tests Pending * PSA Total 03/31/25 [facility] Evaluation note* Diagnosis OPENED IN ERROR- Primary To allow closing an encounter opened in error (used in SmartSet) documented in this encounter [facility]* Diagnosis Malignant neoplasm of prostate (HCC)- Primary Malignant neoplasm of prostate [facility]* Diagnosis Malignant neoplasm of prostate (HCC)- Primary Malignant neoplasm of prostate [facility]* Diagnosis Malignant neoplasm of prostate (HCC)- Primary Malignant neoplasm of prostate 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 [facility]* Diagnosis Malignant neoplasm of prostate (HCC)- Primary Malignant neoplasm of prostate [facility]* Diagnosis Malignant neoplasm of prostate (HCC)- Primary Malignant neoplasm of prostate 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 [facility]* Diagnosis Malignant neoplasm of prostate (HCC)- Primary Malignant neoplasm of prostate [facility]* Diagnosis Malignant neoplasm of prostate (HCC)- Primary Malignant neoplasm of prostate [facility]* Diagnosis Malignant neoplasm of prostate (HCC)- Primary Malignant neoplasm of prostate [facility]* Diagnosis Malignant neoplasm of prostate (HCC)- Primary Malignant neoplasm of prostate [facility]* Diagnosis Malignant neoplasm of prostate (HCC)- Primary Malignant neoplasm of prostate 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, unspecified vessel or lesion type Essential hypertension Unspecified essential hypertension Type 2 diabetes mellitus without complication, without long-term current use of insulin (HCC) documented in this encounter [facility] noteNo [facility] [employer] Other Evaluation note* Diagnosis Malignant neoplasm of prostate (HCC)- Primary Malignant neoplasm of prostate 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, unspecified vessel or lesion type Essential hypertension Unspecified essential hypertension Type 2 diabetes mellitus without complication, without long-term current use of insulin (HCC) [facility]* Diagnosis Malignant neoplasm of prostate (HCC)- Primary Malignant neoplasm of prostate documented in this encounter [facility] note* Diagnosis Malignant neoplasm of prostate (HCC)- Primary Malignant neoplasm of prostate [facility]* Diagnosis Malignant neoplasm of prostate (HCC)- Primary Malignant neoplasm of prostate 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, unspecified vessel or lesion type Essential hypertension Unspecified essential hypertension Type 2 diabetes mellitus without complication, without long-term current use of insulin (HCC) documented [facility] this encounter [facility]* Diagnosis Neoplasm of unspecified behavior of bone, soft tissue, and skin Actinic keratosis documented in this encounter [facility] note* Diagnosis Malignant neoplasm of prostate (HCC)- Primary Malignant neoplasm of prostate [facility]* Diagnosis Malignant neoplasm of prostate (HCC)- Primary Malignant neoplasm of prostate Essential hypertension Unspecified essential hypertension 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, unspecified vessel or lesion type Type 2 diabetes mellitus without complication, without long-term current use of insulin (HCC) Lesion of skin of right ear Abdominal discomfort Abdominal pain, unspecified site [facility] this encounter [facility]* Diagnosis Onset Date Resolution Status Cervical spondylosis acuteMass of skin of left shoulderacutePrimary osteoarthritis, right shoulder acuteShoulder pain, rightacuteNeck painnoneactiveASHD (arteriosclerotic heart disease)acuteEssential hypertensionacuteHypercholesterolemiaacuteMalignant neoplasm of prostateJanuary cuteNonrheumatic aortic valve stenosis acuteOSA (obstructive sleep apnea)acuteType 2 diabetes mellitus with hyperglycemiaacute [facility] Work Phone: Evaluation note* Diagnosis Malignant neoplasm of prostate (HCC)- Primary Malignant neoplasm of prostate [facility]* Diagnosis Malignant neoplasm of prostate (HCC)- Primary Malignant neoplasm of prostate [facility]* Diagnosis Malignant neoplasm of prostate (HCC)- Primary Malignant neoplasm of prostate [facility]* Diagnosis Malignant neoplasm of prostate (HCC)- Primary Malignant neoplasm of prostate documented [facility]* Diagnosis Malignant neoplasm of prostate (HCC)- Primary Malignant neoplasm of prostate Essential hypertension Unspecified essential hypertension 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, unspecified vessel or lesion type Type 2 diabetes mellitus without complication, without long-term current use of insulin (HCC) [facility] Diagnosis Malignant neoplasm of prostate (HCC)- Primary Malignant neoplasm of prostate documented in this encounter [facility] [place] [facility]* Diagnosis Seborrheic keratosis- Primary Melanocytic nevus of trunk Benign neoplasm of skin of trunk, except scrotum Actinic keratosis Lentigines Psoriasis vulgaris Other psoriasis History of SCC (squamous cell carcinoma) of skin Personal history of other malignant neoplasm of skin [facility] Diagnosis Onset Date Resolution Status Admit Date ASHD (arteriosclerotic heart disease) acuteOctober 2024 9:18amCervical spondylosisacuteOctober 2024 9:18am Essential hypertensionacuteOctober 2024 9:18amHypercholesterolemiaacute May 01, 2025 9:18amMalignant neoplasm of prostateJanuary cute May 01, 2025 9:18amNonrheumatic aortic valve stenosisacuteOctober 2024 9:18amOSA (obstructive sleep apnea)acuteOctober 2024 9:18amType 2 diabetes mellitus with hyperglycemiaacuteOctober 2024 9:18am [facility] Work Phone: History general Narrative - Reported* Type Description Date Medical History Nonrheumatic aortic valve stenos is Medical HistoryProstate cancerMedical HistoryObesity (BMI 30-39.9)Medical HistoryOSA (obstructive sleep apnea)Medical HistoryHyperlipidemia type IIMedical HistoryEssential hypertensionMedical HistoryType 2 diabetes mellitus with hyperglycemiaMedical HistoryASHD (arteriosclerotic heart disease)Medical History Depression screeningMedical HistoryOther congenital malformations of iris Surgical HistoryAppendectomy07/27/2016Surgical HistoryTRUS/Bx/2014Surgical Zzrrbzetkmkzyntnsn97/2019Surgical HvqfjztJZP61/2019Surgical HistoryLHC/2014 Surgical HistoryCABG x32/2015Surgical HistoryPancreatic Mass/2016 Hospitalization Historysee surgical [employer] Other History general Narrative - Reported* Type Description Date Medical History Nonrheumatic aortic valve stenos is Medical HistoryProstate cancerMedical HistoryObesity (BMI 30-39.9)Medical HistoryOSA (obstructive sleep apnea)Medical HistoryHyperlipidemia type IIMedical HistoryEssential hypertensionMedical HistoryType 2 diabetes mellitus with hyperglycemiaMedical HistoryASHD (arteriosclerotic heart disease)Medical History Depression screeningMedical HistoryOther congenital malformations of irisMedical HistoryPancreatic massSurgical HistoryAppendectomy07/27/2016Surgical History TRUS/Bx/2014Surgical Hhnqbwnresjvbluawe81/2019Surgical CptrekbTIR75/2019 Surgical HistoryLHC2/2014Surgical HistoryCABG x32/2015Surgical HistoryPancreatic Mass/2016Hospitalization Historysee surgical hx [employer] Other Hospital course Narrative No data available for this section [facility] progress note No data available for this section [facility] reason for referral (narrative)No reason for referral information availableFairfield Medical Center Work Phone: Medications Administered Section Medication OrderMAR ActionAction DateDoseRateSite denosumab 120 mg injection (XGEVA) 120 mg, SUBCUTANEOUS, ONCE, 1 dose, On Mon11/18/21 at 1100, REFRIGERATE Given11/18/2021 10:47 AM [id number] mgArm, LeftMedication OrderMAR ActionAction Date DoseRateSite denosumab 120 mg injection (XGEVA) 120 mg, SUBCUTANEOUS, ONCE, 1 dose, On Mon05/12/22 at 1030, REFRIGERATE Given05/12/2022 10:26 AM [id number] mgArm, LeftMedication OrderMAR ActionAction Date DoseRateSite denosumab 120 mg injection (XGEVA) 120 mg, SUBCUTANEOUS, ONCE, 1 dose, On Mon08/11/22 at 1030, REFRIGERATE Given08/11/2022 10:23 AM [id number] mgArm, LeftMedication OrderMAR ActionAction Date DoseRateSite denosumab 120 mg injection (XGEVA) 120 mg, SUBCUTANEOUS, ONCE, 1 dose, On [place] 4/27/23 at 1000, REFRIGERATE Given11/10/2022 10:03 AM [id number] mgBack, LeftMedication OrderMAR ActionAction DateDoseRateSite denosumab 120 mg injection (XGEVA) 120 mg, SUBCUTANEOUS, ONCE, 1 dose, On Mon02/02/23 at 1030, REFRIGERATE Given02/02/2023 10:34 AM [id number] mgArm, LeftMedication OrderMAR ActionAction Date DoseRateSite denosumab 120 mg injection (XGEVA) 120 mg, SUBCUTANEOUS, ONCE, 1 dose, On Mon04/27/23 at 1000, REFRIGERATE Given04/27/2023 9:57 AM [id number] mgArm, Left Summary Purpose Family History No Family History Records Found Relationship Condition Age at Onset Recorded Date/T desmond father Unknown Heart diseaseUnknownNot SpecifiedDeceasedUnknownMalignant neoplasmUnknown Relationship Condition Age at Onset Recorded Date/T desmond father Unknown Heart diseaseUnknownmotherDeceasedUnknownMalignant neoplasmUnknown Advance Directives No Advanced Directives Records Found Advance Directive Response Recorded Date/ Time Advance Directives No August 24, 2023 10:26am Advance Directive Response Recorded Date/ Time Advance Directives No August 24, 2023 9:26am Reason for Referral SpecialtyDiagnoses / ProceduresReferred By ContactReferred To Contact Diagnoses Actinic keratosis Long Boo, [employer] 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 [address] [place] [address] Referral IDStatusReasonStart DateExpiration DateVisits RequestedVisits [id number] Reason *FU 06/06 Right fr ontal sinus mass and cerumen impaction Diagnosis 1 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) Diagnosis 2 Impacted cerumen of right ear (H61.21) Referral Organization [facility] Thony lizama Referring Provider First Name Jamar Referring Provider Last Name Juan David Referring Provider Specialty Internal Me dicine Referred Organization [facility] Referred Provider Emelina Louis Referred Address ,[place], [place],[address] Referred Provider Specialty Ear, Nose an d [...] Documentation disk in neck 3 MONTH CHECK UPReason for VisitCervical spondylosis Mass of skin of left shoulder [...] with hyperglyce sunny September 02, 2024 9:28am Chief Complaint Admit Date 4 mo f/u May 01, 2025 9 :18am Reason for Visit Admit Date ASHD (arteriosclerotic heart disease) Oc tober 2024 9:18am Cervical spondylosis May 01, 2025 9:18am Essential hypertension May 01 9:18am Hypercholesterolemia May 01, 2025 9:18am Malignant neoplasm of prostate April 162024 9:18am Nonrheumatic aortic valve stenosis Octob er 2024 9:18am GRADY (obstructive sleep apnea) May 012024 9:18am Type 2 diabetes mellitus with hyperglyce sunny May 01, 2025 9:18am Additional Source Comments Source Comments (unrecognize d section and content) In the event this informatio n is protected by the Federal Confidentiality of Alcohol and Drug Abuse Patient Records regulations: The Federal rules restrict any use of the information to criminally investigate or prosecute any alcohol or drug abuse patient.[facility] [place]In the event this information is protected by the Federal Confidentiality of Alcohol and Drug Abuse Patient Records regulations: The Federal rules restrict any use of the information to criminally investigate or prosecute any alcohol or drug abuse patient.[facility] [place]woodIn the event this information is protected by the Federal Confidentiality of Alcohol and Drug Abuse Patient Records regulations: The Federal rules restrict any use of the information to criminally investigate or prosecute any alcohol or drug abuse patient.[facility] [place]woodIn the event this information is protected by the Federal Confidentiality of Alcohol and Drug Abuse Patient Records regulations: The Federal rules restrict any use of the information to criminally investigate or prosecute any alcohol or drug abuse patient.[facility] [place]woodIn the event this information is protected by the Federal Confidentiality of Alcohol and Drug Abuse Patient Records regulations: The Federal rules restrict any use of the information to criminally investigate or prosecute any alcohol or drug abuse patient.[facility] [place]woodIn the event this information is protected by the Federal Confidentiality of Alcohol and Drug Abuse Patient Records regulations: The Federal rules restrict any use of the information to criminally investigate or prosecute any alcohol or drug abuse patient.[facility] [place]woodIn the event this information is protected by the Federal Confidentiality of Alcohol and Drug Abuse Patient Records regulations: The Federal rules restrict any use of the information to criminally investigate or prosecute any alcohol or drug abuse patient.[facility] [place]woodIn the event this information is protected by the Federal Confidentiality of Alcohol and Drug Abuse Patient Records regulations: The Federal rules restrict any use of the information to criminally investigate or prosecute any alcohol or drug abuse patient.[facility], [place]woodIn the event this information is protected by the Federal Confidentiality of Alcohol and Drug Abuse Patient Records regulations: The Federal rules restrict any use of the information to criminally investigate or prosecute any alcohol or drug abuse patient.[facility] [place]woodIn the event this information is protected by the Federal Confidentiality of Alcohol and Drug Abuse Patient Records regulations: The Federal rules restrict any use of the information to criminally investigate or prosecute any alcohol or drug abuse patient.[facility] [place]woodIn the event this information is protected by the Federal Confidentiality of Alcohol and Drug Abuse Patient Records regulations: The Federal rules restrict any use of the information to criminally investigate or prosecute any alcohol or drug abuse patient.[facility] [place]woodIn the event this information is protected by the Federal Confidentiality of Alcohol and Drug Abuse Patient Records regulations: The Federal rules restrict any use of the information to criminally investigate or prosecute any alcohol or drug abuse patient.[facility] [place]woodIn the event this information is protected by the Federal Confidentiality of Alcohol and Drug Abuse Patient Records regulations: The Federal rules restrict any use of the information to criminally investigate or prosecute any alcohol or drug abuse patient.[facility] [place]woodIn the event this information is protected by the Federal Confidentiality of Alcohol and Drug Abuse Patient Records regulations: The Federal rules restrict any use of the information to criminally investigate or prosecute any alcohol or drug abuse patient.[facility] [place]woodIn the event this information is protected by the Federal Confidentiality of Alcohol and Drug Abuse Patient Records regulations: The Federal rules restrict any use of the information to criminally investigate or prosecute any alcohol or drug abuse patient.[facility] [place]woodIn the event this information is protected by the Federal Confidentiality of Alcohol and Drug Abuse Patient Records regulations: The Federal rules restrict any use of the information to criminally investigate or prosecute any alcohol or drug abuse patient.[facility] [place]woodIn the event this information is protected by the Federal Confidentiality of Alcohol and Drug Abuse Patient Records regulations: The Federal rules restrict any use of the information to criminally investigate or prosecute any alcohol or drug abuse patient.[facility] [place]woodIn the event this information is protected by the Federal Confidentiality of Alcohol and Drug Abuse Patient Records regulations: The Federal rules restrict any use of the information to criminally investigate or prosecute any alcohol or drug abuse patient.[facility] [place]woodIn the event this information is protected by the Federal Confidentiality of Alcohol and Drug Abuse Patient Records regulations: The Federal rules restrict any use of the information to criminally investigate or prosecute any alcohol or drug abuse patient.[facility] [place]woodIn the event this information is protected by the Federal Confidentiality of Alcohol and Drug Abuse Patient Records regulations: The Federal rules restrict any use of the information to criminally investigate or prosecute any alcohol or drug abuse patient.[facility] [place]woodIn the event this information is protected by the Federal Confidentiality of Alcohol and Drug Abuse Patient Records regulations: The Federal rules restrict any use of the information to criminally investigate or prosecute any alcohol or drug abuse patient.[facility] [place]woodIn the event this information is protected by the Federal Confidentiality of Alcohol and Drug Abuse Patient Records regulations: The Federal rules restrict any use of the information to criminally investigate or prosecute any alcohol or drug abuse patient.[facility] [place]woodIn the event this information is protected by the Federal Confidentiality of Alcohol and Drug Abuse Patient Records regulations: The Federal rules restrict any use of the information to criminally investigate or prosecute any alcohol or drug abuse patient.[facility] [facility], BeachwoodIn the event this information is protected by the Federal Confidentiality of Alcohol and Drug Abuse Patient Records regulations: The Federal rules restrict any use of the information to criminally investigate or prosecute any alcohol or drug abuse patient.[facility], BeachwoodIn the event this information is protected by the Federal Confidentiality of Alcohol and Drug Abuse Patient Records regulations: The Federal rules restrict any use of the information to criminally investigate or prosecute any alcohol or drug abuse patient.[facility], BeachwoodIn the event this information is protected by the Federal Confidentiality of Alcohol and Drug Abuse Patient Records regulations: The Federal rules restrict any use of the information to criminally investigate or prosecute any alcohol or drug abuse patient.[facility], [place]woodIn the event this information is protected by the Federal Confidentiality of Alcohol and Drug Abuse Patient Records regulations: The Federal rules restrict any use of the information to criminally investigate or prosecute any alcohol or drug abuse patient.[facility], [place]woodIn the event this information is protected by the Federal Confidentiality of Alcohol and Drug Abuse Patient Records regulations: The Federal rules restrict any use of the information to criminally investigate or prosecute any alcohol or drug abuse patient.[facility], [place]woodIn the event this information is protected by the Federal Confidentiality of Alcohol and Drug Abuse Patient Records regulations: The Federal rules restrict any use of the information to criminally investigate or prosecute any alcohol or drug abuse patient.[facility], [place]woodIn the event this information is protected by the Federal Confidentiality of Alcohol and Drug Abuse Patient Records regulations: The Federal rules restrict any use of the information to criminally investigate or prosecute any alcohol or drug abuse patient.[facility], [place]woodIn the event this information is protected by the Federal Confidentiality of Alcohol and Drug Abuse Patient Records regulations: The Federal rules restrict any use of the information to criminally investigate or prosecute any alcohol or drug abuse patient.[facility], [place]woodIn the event this information is protected by the Federal Confidentiality of Alcohol and Drug Abuse Patient Records regulations: The Federal rules restrict any use of the information to criminally investigate or prosecute any alcohol or drug abuse patient.[facility], [place]woodIn the event this information is protected by the Federal Confidentiality of Alcohol and Drug Abuse Patient Records regulations: The Federal rules restrict any use of the information to criminally investigate or prosecute any alcohol or drug abuse patient.[facility], [place]woodIn the event this information is protected by the Federal Confidentiality of Alcohol and Drug Abuse Patient Records regulations: The Federal rules restrict any use of the information to criminally investigate or prosecute any alcohol or drug abuse patient.[facility], [place]woodIn the event this information is protected by the Federal Confidentiality of Alcohol and Drug Abuse Patient Records regulations: The Federal rules restrict any use of the information to criminally investigate or prosecute any alcohol or drug abuse patient.[facility] [place]woodIn the event this information is protected by the Federal Confidentiality of Alcohol and Drug Abuse Patient Records regulations: The Federal rules restrict any use of the information to criminally investigate or prosecute any alcohol or drug abuse patient.[facility], [place]woodIn the event this information is protected by the Federal Confidentiality of Alcohol and Drug Abuse Patient Records regulations: The Federal rules restrict any use of the information to criminally investigate or prosecute any alcohol or drug abuse patient.[facility], [place]woodIn the event this information is protected by the Federal Confidentiality of Alcohol and Drug Abuse Patient Records regulations: The Federal rules restrict any use of the information to criminally investigate or prosecute any alcohol or drug abuse patient.[facility], [place]woodIn the event this information is protected by the Federal Confidentiality of Alcohol and Drug Abuse Patient Records regulations: The Federal rules restrict any use of the information to criminally investigate or prosecute any alcohol or drug abuse patient.[facility] [place] Care Teams (unrecognized sec tion and content) Team Status: Active Member Role Status Dates Jamar Fall DO Primary Care Provider Active Team Status: Active Member Role Status Dates Jamar Fall DO Primary Care Provider Active Start: 2025 Jorge Hope ProviderActiveStart: 2025 Team Status: Active Member Role Status Dates Jamar Fall DO Primary Care Provider Active Start: March 20, 2025 Anirudh Quiroz NP-CAttending ProviderActiveStart: March 20, 2025 Team Status: Active Member Role Status Dates Jamar Fall DO Primary Care Provider Active Start: March 24, 2025 Outside ProviderAttending ProviderActiveStart: March 24, 2025 Team Status: Inactive Member Role Status Sundar Fall DO Primary Care Provider Active Start: May 01, 2025 End: May 01enalfie Fall DOAttending ProviderActiveStart: May 01, 2025 End: May 01, 2025 Team Status: Inactive Member Role Status Sundar Fall DO Primary Care Provide r, Attending Provider Active Start: June 10, 2024 End: June 10, 2024 Team Status: Active Member Role Status Dates Jamar Fall DO Primary Care Provider Active Start: August 01, 2024 Jorge Hope ProviderActiveStart: August 01, 2024 Team Status: Inactive Member Role Status Sundar Fall DO Primary Care Provide r, Attending Provider Active Start: September 02, 2024 End: September 02, 2024Team MemberRelationshipSpecialtyStart DateEnd Date Jamar Fall DO PCP - GeneralInternal Medicine08/04/14Team MemberRelationshipSpecialtyStart Date End Date Jamar Fall Jessica, DO PCP - GeneralInternal Medicine08/04/14Team MemberRelationshipSpecialtyStart Date End Date Jamar Fall, DO PCP - GeneralInternal Medicine08/04/14Team MemberRelationshipSpecialtyStart Date End Date Juan DavidJamar Jessica, DO PCP - GeneralInternal Medicine08/04/14 Marco A Esqueda MD [address] [place], [place] [id number] PhysicianHematology/Oncology11/02/21 Christo Howard, ROLL FORMING MACHINE SET UP MECHANIC.ASSISTANT SALES CENTER MANAGER [address] [place] [address] Nurse PractitionerHematology/Oncology11/02/21 Clementine Aguilar, ANITHA [address] [place] [address] Specialty Care CoordinatorHematology/Oncology11/02/21Te MemberRelationship SpecialtyStart DateEnd Date Jamar Fall Jessica, DO PCP - GeneralInternal Medicine08/04/14 Marco A Esqueda MD [address] [place] [address] PhysicianHematology/Oncology11/02/21 Christo Howard, ROLL FORMING MACHINE SET UP MECHANIC.ASSISTANT SALES CENTER MANAGER [address] [place] [address] Nurse PractitionerHematology/Oncology11/02/21 Clementine Aguilar, RN [address] [place] [address] Specialty Care CoordinatorHematology/Oncology11/02/21Team MemberRelationship SpecialtyStart DateEnd Date Jamar Fall, DO PCP - GeneralInternal Medicine08/04/14 Marco A Esqueda MD [address] [place] [address] PhysicianHematology/Oncology11/02/21 Christo Howard, ROLL FORMING MACHINE SET UP MECHANIC.ASSISTANT SALES CENTER MANAGER [address] [place] [address] Nurse PractitionerHematology/Oncology11/02/21 Clementine Aguilar, RN [address] [place] [address] Specialty Care CoordinatorHematology/Oncology11/02/21Team MemberRelationship SpecialtyStart DateEnd Date Jamar Fall, DO PCP - GeneralInternal Medicine08/04/14 Marco A Esqueda MD [address] [place] [address] PhysicianHematology/Oncology11/02/21 Christo Howard, ROLL FORMING MACHINE SET UP MECHANIC.ASSISTANT SALES CENTER MANAGER [address] [place] [address] Nurse PractitionerHematology/Oncology11/02/21 Clementine Aguilar, RN [address] [place] [address] Specialty Care CoordinatorHematology/Oncology11/02/21Team MemberRelationship SpecialtyStart DateEnd Date Jamar Fall, DO PCP - GeneralInternal Medicine08/04/14 Marco A Esqueda MD [address] [place] [address] PhysicianHematology/Oncology11/02/21 Christo Howard, ROLL FORMING MACHINE SET UP MECHANIC.ASSISTANT SALES CENTER MANAGER [address] [place] [address] Nurse PractitionerHematology/Oncology11/02/21 Clementine Aguilar, RN [address] [place] [address] Specialty Care CoordinatorHematology/Oncology11/02/21Team MemberRelationship SpecialtyStart DateEnd Date Jamar Fall, DO PCP - GeneralInternal Medicine08/04/14 Marco A Esqueda MD [address] [place] [address] PhysicianHematology/Oncology11/02/21 Christo Howard, ROLL FORMING MACHINE SET UP MECHANIC.ASSISTANT SALES CENTER MANAGER [address] [place] [address] Nurse PractitionerHematology/Oncology11/02/21 Clementine Aguilar, ANITHA [address] [place] [address] Specialty Care CoordinatorHematology/Oncology11/02/21Team MemberRelationship SpecialtyStart DateEnd Date Jamar Fall, DO PCP - GeneralInternal Medicine08/04/14 Marco A Esqueda MD [address] [place] [address] PhysicianHematology/Oncology11/02/21 Christo Howard, ROLL FORMING MACHINE SET UP MECHANIC.ASSISTANT SALES CENTER MANAGER [address] [place] [address] Nurse PractitionerHematology/Oncology11/02/21 Clementine Aguilar, RN [address] [place] [address] Specialty Care CoordinatorHematology/Oncology11/02/21Team MemberRelationship SpecialtyStart DateEnd Date Jamar Fall, DO PCP - GeneralInternal Medicine08/04/14 Marco A Esqueda MD [address] [place] [address] PhysicianHematology/Oncology11/02/21 Christo Howard, ROLL FORMING MACHINE SET UP MECHANIC.ASSISTANT SALES CENTER MANAGER [address] [place] [address] Nurse PractitionerHematology/Oncology11/02/21 Clementine Aguilar, RN [address] [place] [address] Specialty Care CoordinatorHematology/Oncology11/02/21Team MemberRelationship SpecialtyStart DateEnd Date Jamar Fall, DO PCP - GeneralInternal Medicine08/04/14 Marco A Esqueda MD [address] [place] [address] PhysicianHematology/Oncology11/02/21 Christo Howard, ROLL FORMING MACHINE SET UP MECHANIC.ASSISTANT SALES CENTER MANAGER [address] [place] [address] Nurse PractitionerHematology/Oncology11/02/21 Clementine Aguilar, ANITHA [address] [place] [address] Specialty Care CoordinatorHematology/Oncology11/02/21Team MemberRelationship SpecialtyStart DateEnd Date Jamar Fall, DO PCP - GeneralInternal Medicine08/04/14 Marco A Esqueda MD [address] [place] [address] PhysicianHematology/Oncology11/02/21 Christo Howard, ROLL FORMING MACHINE SET UP MECHANIC.ASSISTANT SALES CENTER MANAGER [address] [place] [address] Nurse PractitionerHematology/Oncology11/02/21 Clementine Aguilar, ANITHA [address] [place] [address] Specialty Care CoordinatorHematology/Oncology11/02/21Team MemberRelationship SpecialtyStart DateEnd Date Jamar Fall, DO PCP - GeneralInternal Medicine08/04/14 Marco A Esqueda MD [address] [place] [address] PhysicianHematology/Oncology11/02/21 Christo Hwoard, ROLL FORMING MACHINE SET UP MECHANIC.ASSISTANT SALES CENTER MANAGER [address] [place] [address] Nurse PractitionerHematology/Oncology11/02/21 Clementine Aguilar, ANITHA [address] [place] [address] Specialty Care CoordinatorHematology/Oncology11/02/21Team MemberRelationship SpecialtyStart DateEnd Date Jamar Fall, DO PCP - GeneralInternal Medicine08/04/14 Marco A Esqueda MD [address] [place] [address] PhysicianHematology/Oncology11/02/21 Christo Howard, ROLL FORMING MACHINE SET UP MECHANIC.ASSISTANT SALES CENTER MANAGER [address] [place] [address] Nurse PractitionerHematology/Oncology11/02/21 Clementine Aguilar, ANITHA [address] [place] [address] Specialty Care CoordinatorHematology/Oncology11/02/21Team MemberRelationship SpecialtyStart DateEnd Date Jamar Fall DO PCP - GeneralInternal Medicine08/04/14 Marco A Esqueda MD [address] [place] [address] PhysicianHematology/Oncology11/02/21 Christo Howard, ROLL FORMING MACHINE SET UP MECHANIC.ASSISTANT SALES CENTER MANAGER [address] [place] [address] Nurse PractitionerHematology/Oncology11/02/21 Clementine Aguilar, ANITHA [address] [place] [address] Specialty Care CoordinatorHematology/Oncology11/02/21Team MemberRelationship SpecialtyStart DateEnd Date Jamar Fall DO PCP - GeneralInternal Medicine08/04/14 Marco A Esqueda MD [address] [place] [address] [place] [address] PhysicianHematology/Oncology11/02/21 Christo Howard, ROLL FORMING MACHINE SET UP MECHANIC.ASSISTANT SALES CENTER MANAGER [address] [place] [address] [place] [address] Nurse PractitionerHematology/Oncology11/02/21 Clementine Aguilar, ANITHA [address] [place] [address] Specialty Care CoordinatorHematology/Oncology11/02/21Team MemberRelationship SpecialtyStart DateEnd Date Jamar Fall DO PCP - GeneralInternal Medicine08/04/14 Marco A Esqueda MD [address] [facility] [place] [address] PhysicianHematology/Oncology4 Christo Howard, ROLL FORMING MACHINE SET UP MECHANIC.ASSISTANT SALES CENTER MANAGER [address] [facility] [place] [address] Nurse PractitionerHematology/Oncology11/02/21 Clementine Aguilar, ANITHA [address] [facility] [place] [address] Specialty Care CoordinatorHematology/Oncology11/02/21Team MemberRelationship SpecialtyStart DateEnd Date Jamar Fall DO PCP - GeneralInternal Medicine08/04/14 Marco A Esqueda MD [address] [facility] [place] [address] PhysicianHematology/Oncology11/02/21 Christo Howard, ROLL FORMING MACHINE SET UP MECHANIC.ASSISTANT SALES CENTER MANAGER [address] [facility] [place] [address] Nurse PractitionerHematology/Oncology11/02/21 Clementine Aguilar, ANITHA [address] [facility] [place] [address] Specialty Care CoordinatorHematology/Oncology11/02/21Team MemberRelationship SpecialtyStart DateEnd Date Jamar Fall DO PCP - GeneralInternal Medicine08/04/14 Marco A Esqueda MD [address] [place] [address] [place] [address] PhysicianHematology/Oncology11/02/21 Christo Howard APRN.ASSISTANT SALES CENTER MANAGER [address] [place] [address] [place] [address] Nurse PractitionerHematology/Oncology11/02/21 Clementine Aguilar, ANITHA [address] [place] [address] [place] [address] Specialty Care CoordinatorHematology/Oncology11/02/21Team MemberRelationship SpecialtyStart DateEnd Date Jamar Fall MD [address] [place] [id number] PCP - GeneralInternal Wlgkteys77/15/23Team MemberRelationshipSpecialtyStart Date End Date Jamar Fall MD [address] [place] [id number] PCP - GeneralInternal Dsyheogv17/15/23Te MemberRelationshipSpecialtyStart Date End Date Jamar Fall DO PCP - GeneralInternal Medicine08/04/14 Marco A Esqueda MD [address] [place] [address] [place] [address] PhysicianHematology/Oncology11/02/21 Christo Howard APRN.ASSISTANT SALES CENTER MANAGER [address] [place] [address] [place] [address] Nurse PractitionerHematology/Oncology11/02/21 Clementine Aguilar, ANITHA [address] [facility] [place] [address] Specialty Care CoordinatorHematology/Oncology11/02/21Team MemberRelationship SpecialtyStart DateEnd Date Jamar Fall DO PCP - GeneralInternal Medicine08/04/14 Marco A Esqueda MD [address] [place] [address] [place] [address] PhysicianHematology/Oncology11/02/21 Christo Howard APRN.ASSISTANT SALES CENTER MANAGER [address] [place] [address] [place] [address] Nurse PractitionerHematology/Oncology11/02/21 Clementine Aguilar, ANITHA [address] [place] [address] [place] [address] Specialty Care CoordinatorHematology/Oncology11/02/21 Team Status: Active Member Role Status Dates Jamar Fall , DO Primary Care Provider Active Start: September 06, 2023 LISETTE MarteAAtbehzad ProviderActiveStart: September 06, 2023 Team Status: Inactive Member Role Status Sundar Fall DO Primary [...] 2023 Team Status: Inactive Member Role Status Sundar Fall DO Primary Care Provide r, Attending Provider Active Start: November 23, 2023 End: November 23, 2023Team MemberRelationshipSpecialtyStart DateEnd Date Jamar Fall DO PCP - GeneralInternal Medicine08/04/14 Marco A Esqueda MD [address] [place] [address] [place] [address] PhysicianHematology/Oncology11/02/21 Christo Howard, ROLL FORMING MACHINE SET UP MECHANIC.ASSISTANT SALES CENTER MANAGER [address] [facility] [place] [address] Nurse PractitionerHematology/Oncology11/02/21 Clementine Aguilar, ANITHA [address] [place] [address] Specialty Care CoordinatorHematology/Oncology11/02/21Team MemberRelationship SpecialtyStart DateEnd Date Jamar Fall DO PCP - GeneralInternal Medicine08/04/14 Marco A Esqueda MD [address] [place] [address] [place] [address] PhysicianHematology/Oncology11/02/21 Christo Howard, ROLL FORMING MACHINE SET UP MECHANIC.ASSISTANT SALES CENTER MANAGER [address] [place] [address] [place] [address] Nurse PractitionerHematology/Oncology11/02/21 Clementine Aguilar RN [address] [facility] [place] [address] Specialty Care CoordinatorHematology/Oncology11/02/21 Team Status: Active Member Role Status Dates Jamar Fall DO Primary Care Provider Active Start: January 25, 2024 BRITTANY CollinsCAttending ProviderActiveStart: January 25, 2024 Team Status: Inactive Member Role Status Dates Jamar Fall DO Primary Care Provide r, Attending Provider Active Start: March 26, 2024 End: March 26, 2024Team MemberRelationshipSpecialtyStart DateEnd Date Jamar Fall DO PCP - GeneralInternal Medicine08/04/14 Marco A Esqueda MD [address] [facility] [place] [address] PhysicianHematology/Oncology11/02/21 Christo Howard, ROLL FORMING MACHINE SET UP MECHANIC.ASSISTANT SALES CENTER MANAGER [address] [place] [address] Nurse PractitionerHematology/Oncology11/02/21 Clementine Aguilar, ANITHA [address] [facility] [place] [address] Specialty Care CoordinatorHematology/Oncology11/02/21Team MemberRelationship SpecialtyStart DateEnd Date Jamar Fall DO PCP - GeneralInternal Medicine08/04/14 Marco A Esqueda MD [address] [facility] [place] [address] PhysicianHematology/Oncology11/02/21 Christo Howard, ROLL FORMING MACHINE SET UP MECHANIC.ASSISTANT SALES CENTER MANAGER [address] [facility] [place] [address] Nurse PractitionerHematology/Oncology11/02/21 Clementine Aguilar, ANITHA [address] [facility] [place] [address] Specialty Care CoordinatorHematology/Oncology11/02/21Team MemberRelationship SpecialtyStart DateEnd Date Jaamr Fall DO PCP - GeneralInternal Medicine08/04/14 Marco A Esqueda MD [address] [facility] [place] [address] PhysicianHematology/Oncology11/02/21 Christo Howard, ROLL FORMING MACHINE SET UP MECHANIC.ASSISTANT SALES CENTER MANAGER [address] [place] [address] Nurse PractitionerHematology/Oncology11/02/21 Clementine Aguilar, ANITHA [address] [facility] [place] [address] Specialty Care CoordinatorHematology/Oncology11/02/21Team MemberRelationship SpecialtyStart DateEnd Date Jamar Fall DO PCP - GeneralInternal Medicine08/04/14 Marco A Esqueda MD [address] [facility] [place] [address] PhysicianHematology/Oncology11/02/21 Christo Howard, ROLL FORMING MACHINE SET UP MECHANIC.ASSISTANT SALES CENTER MANAGER [address] [facility] [place] [address] Nurse PractitionerHematology/Oncology11/02/21 Clementine Aguilar, ANITHA [address] [facility] [place] [address] Specialty Care CoordinatorHematology/Oncology11/02/21Team MemberRelationship SpecialtyStart DateEnd Date Jamar Fall DO PCP - GeneralInternal Medicine08/04/14 Marco A Esqueda MD [address] [facility] [place] [address] PhysicianHematology/Oncology11/02/21 Christo Howard, ROLL FORMING MACHINE SET UP MECHANIC.ASSISTANT SALES CENTER MANAGER [address] [facility] [place] [address] Nurse PractitionerHematology/Oncology11/02/21 Clementine Aguilar, ANITHA [address] [place] [address] [place] [address] Specialty Care CoordinatorHematology/Oncology11/02/21Team MemberRelationship SpecialtyStart DateEnd Date Jamar Fall DO [address] [place] [id number] PCP - GeneralInternal Rsdhcscu94/15/23Team MemberRelationshipSpecialtyStart Date End Date Jamar Fall DO [address] [place] [address] PCP - GeneralInternal Qkzzbvsk65/15/23 Reason for Visit (unrecogniz ed section and content) ReasonCommentsLab OrdersReasonCommentsMedication QuestionLupron Start DateReason Onset DateCommentsOpened In Error2ReasonCommentsCare Coordination Testosterone ResultsReasonCommentsMedication AuthorizationXtandiReasonComments Medication UpdateXtandi free drugReasonCommentsCare CoordinationCovid Vaccine ReasonCommentsOral Anti-cancer Agent EducationEnzalutamideReasonCommentsCare CoordinationMedication Start Date - EnzalutamideReasonCommentsCare Coordination Medication UpdateReasonCommentsProstate Cancer2 week follow upSpecialtyDiagnoses / ProceduresReferred By ContactReferred To Contact Diagnoses Malignant neoplasm of prostate (HCC) Procedures DENOSUMAB INJECTION Marco A Esqueda MD [address] [place] [address] [place] [address] Himanshu Treat Ariella [address] [place] [address] Referral IDStatusReasonStart DateExpiration DateVisits RequestedVisits [id number]/28/202212/[id number] CoordinationRefill QuestionReasonCommentsProstate Cancer1 month follow upReason CommentsProstate CancerFollow upReasonCommentsProstate Cancer3 month follow up ReasonCommentsProstate CancerReasonCommentsProstate CancerFollow upReason CommentsSuspicious Skin LesionSpecialtyDiagnoses / ProceduresReferred By Contact Referred To ContactDermatology Diagnoses lesion of skin of R ear Marco A Esqueda MD [address] [place] [address] [place] [address] Lety Holguin MD [address] [place] [address] Referral IDStatusReasonStart DateExpiration DateVisits RequestedVisits [id number] Cancer3 month follow upEstablished PatientReasonCommentsRefill RequestReasonOnset DateComments Refill Ocipbvc79/16/2024ReasonOnset DateCommentsRefill Okdhuiz87/23/2024Reason Onset DateCommentsLab Occhyw7407/25/2024ReasonCommentsSkin Check (unrecognized sect ion and content) No Status Records FoundNo Status Records FoundNo Status Records FoundNo Status Records FoundNo Status Records FoundNo Status Records Found INFORMATION SOURCE (unrecogn ized section and content) DATE CREATED AUTHOR 10/31/2022 [facility] DATE CREATED AUTHOR AUTHOR'S ORGANIZ ATION 03/02/2024 [facility] DATE CREATED AUTHOR AUTHOR'S ORGANIZ ATION 02/28/2025 [facility] [place] DATE CREATED AUTHOR AUTHOR'S ORGANIZ ATION 04/01/2025 [facility] DATE CREATED AUTHOR AUTHOR'S ORGANIZ ATION 04/07/2025 [facility] DATE CREATED AUTHOR AUTHOR'S ORGANIZ ATION 05/24/2025 [facility] Inactive Administered Medications - up to 3 most recent administrations Administered Medications (un recognized section and content) Medication OrderMAR ActionAction DateDoseRateSite denosumab 120 mg injection (XGEVA) 120 mg, SUBCUTANEOUS, ONCE, 1 dose, On [place] 11/02/23 at 1000, REFRIGERATE Given11/02/2023 9:50 AM AUP353 mgArm, Left Goals (unrecognized section and content) Goals [...] BE BASED ON THE PRIMARY CLINICAL RECORDS. [facility]. provides no warranty or guarantee of the accuracy or completeness of information in this document.
--- NOTE | 2025-05-29 08:39 | PM.CN ---
Consult Note: HPI Data of Consult Patient: known to practice within the last 3 years Requesting Physician: Cheryl Cox NP Primary Care Provider: Non-Staff Physician, MD Consult Narrative Reason for consult: f/u Narrative: Rajesh Felix a pleasant 80 year old male presents for evaluation of chronic left sided neck pain. has failed to benefit from >6 weeks of PT and provider guided HEP, heat, ice, tylenol, and topical NSAIDs. recent cervical xray and MRI consistent with multilevel degenerative changes and cervical stenosis. previously underwent repeat Left C3-4 C4-5 TFESI with >50% improvement in pain and functional ability for at least 3 months, has noticed increased pain over the last week. cc:: CC: Cheryl Cox NP Review of Systems ROS Musculoskeletal Reports: neck pain; Denies: extremity pain PFSH PFSH Medical History Anemia ?D64.9 - Anemia, unspecified (ICD-10) History of blood transfusion ?Z92.89 - Personal history of other medical treatment (ICD-10) Sleep apnea ?G47.30 - Sleep apnea, unspecified (ICD-10) COVID-19 ?U07.1 - COVID-19 (ICD-10) Prostate cancer ?C61 - Malignant neoplasm of prostate (ICD-10) Coronary artery disease ?I25.10 - Atherosclerotic heart disease of [place] coronary artery without angina pectoris (ICD-10) Diabetes ?E11.9 - Type 2 diabetes mellitus without complications (ICD-10) Arthritis ?M19.90 - Unspecified osteoarthritis, unspecified site (ICD-10) Neck pain ?M54.2 - Cervicalgia (ICD-10) Surgical History 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 - Presence of aortocoronary bypass graft (ICD-10) History of appendectomy ?Z90.49 - Acquired absence of other specified parts of digestive tract (ICD-10) S/P prostatectomy ?Z90.79 - Acquired absence of other genital organ(s) (ICD-10) History of colonoscopy ?Z98.890 - Other specified postprocedural states (ICD-10) S/P epidural steroid injection ?Z92.241 - Personal history of systemic steroid therapy (ICD-10) Family History Other Cancer Family history of myocardial infarction Social History Within the past year, how often did you have a drink containing alcohol: 4 or more times a week Within the past year, how many standard drinks containing alcohol did you have on a typical day: 1 or 2 Total score: 0 Score interpretation: A score less than 4 is consistent with normal alcohol consumption. Smoking status: Never smoker Non-prescribed substance use: denies use Previous occupational history: [employer] Highest level of school completed/degree received: Associate degree: occupational, technical, vocational program Meds Home Medications and Allergies Home Medications ?Medication ?Instructions ?Recorded ?Confirmed ?Type CALCIUM & D3 .QD 12/13/23 History aspirin 81 mg capsule 81 mg PO DAILY 12/13/23 02/17/25 History atorvastatin 40 mg tablet 40 mg PO DAILY 12/13/23 02/17/25 History enzalutamide 80 mg tablet (Xtandi) 80 mg PO DAILY 12/13/23 02/17/25 History glimepiride 1 mg tablet 0.5 mg PO DAILY 12/13/23 02/17/25 History metformin 500 mg tablet 1,000 mg PO BID 12/13/23 02/17/25 History metoprolol succinate 25 mg 25 mg PO Q12H 12/13/23 02/17/25 History tablet,extended release 24 hr multivitamin with iron (Daily 1 tab PO DAILY 12/13/23 02/17/25 History Vites/Iron tablet) lisinopril 20 1 tab PO QPM 04/01/24 02/17/25 History mg-hydrochlorothiazide 12.5 mg tablet Allergies Allergy/AdvReac Type Severity Reaction Status Date / Time Penicillins Allergy Mild Rash Verified 02/17/25 08:31 Exam Constitutional Documenting provider has reviewed patient's vital signs: yes Common normals: no apparent distress, oriented x3 and alert General appearance: cooperative HENMT Common normals: normocephalic, hearing grossly normal bilaterally and moist oral mucous membranes Head and scalp: normocephalic Eye Common normals: PERRL Pupil: PERRL Neck & C-Spine Cervical spine: cervical ROM abnormal, pain with cervical ROM and paracervical muscle tenderness; no cervical spine tenderness, no paracervical muscle spasm and no trapezius muscle tenderness Other: strength 5/5 in BUE radiculopathy noted left C3,4,5 positive spurlings Chest Common normals: inspection of chest normal Respiratory Common normals: normal respiratory effort, no retractions and no use of accessory muscles Neuro Common normals: oriented x3 Sensorium/orientation: alert Psych Common normals: mental status grossly normal, thought process normal, cooperative, affect normal, speech normal and activity/motor behavior normal Speech: normal speech Thought process: normal thought process Results Additional Findings Additional findings: If on a controlled substance or opioids, I have checked an [place]AR[place] report on this patient and there are no aberrancies noted in the prescribing history.??If on a controlled substance or opioid a drug screen was completed and reviewed within the last year, and if there has not been a drug screen completed we ordered one today to monitor higher risk, state monitored pain medication use. As part of providing excellent, safe, comprehensive care, the following was completed at our patient's visit: 1. A medication reconciliation and review to ensure accurate knowledge of current/active medications, including asking our patients to inform us about any hbkq-lcf-althytp medications or herbal remedies/nutritional supplements/alternative remedies. 2. A review to specifically ensure our patients have had annual screening for screening for depression, screening for tobacco use, and screening for unhealthy alcohol use. For concerning screenings had a discussion with the patient, provided patient education, and recommended follow-up with primary care provider when appropriate. If patient noted with a risk of falling, they received education on strength, gait, and balance training to prevent future risk of falling. Portions of this note may have been carried over from the previous visit and updated as appropriate. Please note this office utilizes paper charting in addition to the electronic medical record. A list of current medications, vitals, and PMH is available there as the clinical staff outside of myself do not have access to [employer] charting during the clinic day operations. As part of providing quality comprehensive care the current medications, vitals, and PMH were reviewed in the paper chart. Assessment and Plan Assessment and Plan (1) Cervical spinal stenosis: Assessment and Plan: The patient has had over 3 months of moderate to severe neck pain with functional impairment and inadequate response to conservative care including NSAIDS (unless there are contraindication such as concurrent blood thinners), multiple oral or topical pain medications, and home exercise program/physical therapy.? Patient has completed >6 weeks of guided home exercise program and/or formal physical therapy program without relief of their symptoms.? I have reviewed the imaging of the cervical spine and no red flags were identified.? The imaging reveals radiographic findings consistent with cervical DDD, cervical stenosis, and cervical spondylosis The Oswestry Disability Index was completed, and the patient scored a 24%.? (2) Cervical radiculopathy: (3) Cervical spondylosis: Assessment and Plan: failed left C2-3 C3-4 MBB and left C4/5 C5/6 MBB (4) Myofascial pain: Plan repeat left C3-4 C4-5 TFESI under fluoroscopy for cervical stenosis and radiculopathy, previous MARNIE provided at least 50% improvement for 3 months update cervical MRI without contrast to assess cervical stenosis and radiculopathy in consideration of NS consultation patient not interested in medication management, advised pt to utilize transdermal cream TID-QID PRN to affected areas f/u after injection, will refer to NS based on updated MRI results
== END 2025-05-29 08:06 | disposition home or self-care (01) ==
LOC: PM 08:05
PROVIDERS: Visit Provider Nurse Practitioner
DX: M48.02 Spinal stenosis, cervical region (principal); M54.12 Radiculopathy, cervical region; M47.812 Spondylosis without myelopathy or radiculopathy, cervical region; M79.18 Myalgia, other site
CPT/HCPCS: G0463

== ENCOUNTER 2025-06-03 08:27 | Outpatient (OUT) | payer MEDICARE, OTHER, SELFPAY ==
--- NOTE | 2025-06-03 08:30 | MR_ITS ---
The [address] [address] Patient Name: PABLO ONEIL MRN: [id number] date: 1945 Sex: M Assigned Patient Location: [facility] Current Patient Location: [facility] Accession/Order Number: [id number] Exam Date: 06/03/2025 09:05 Report Date: 06/03/2025 16:36 At the request of: PHILIP TALAVERA NP Procedure: MR cervical spine wo con MR cervical spine wo con 06/03/2025 10:22 AM SIGNS AND SYMPTOMS: ^Cervical Stenosis With Radiculopathy PROTOCOL: Multiplanar multisequence MR images of the cervical spine without IV contrast COMPARISON: None. FINDINGS: The bones of the cervical spine are in anatomic alignment. There is preservation of vertebral body heights. There is mild disc height loss at C3-C4, C5-C6, and C6-7. The marrow signal is within normal limits. The cord is normal in signal. No epidural or paraspinous fluid collection is appreciated. The visualized paraspinous soft tissues are within normal limits. The prevertebral soft tissues are within normal limits. There is a 1.5 cm T2 hyperintense nodule within the left thyroid lobe similar to the prior exam. At C2-C3: There is a normal disc, central canal, and neural foramen. At C3-C4: There is a broad-based disc bulge with uncovertebral joint spurring left greater than right. There is facet hypertrophy. There is moderate to severe left neural foraminal narrowing with mild right neural foraminal narrowing similar to the prior exam. There is mild spinal canal narrowing. At C4-C5: There is a broad-based disc bulge with facet hypertrophy and uncovertebral joint spurring contributing to moderate right and mild left neural foraminal narrowing with mild spinal canal narrowing. This is unchanged. At C5-C6: There is a broad-based disc bulge with facet hypertrophy and uncovertebral joint spurring. There is moderate bilateral neural foraminal narrowing with mild spinal canal narrowing. This is unchanged. At C6-C7: There is a broad-based disc bulge with facet hypertrophy and uncovertebral joint spurring. There is moderate bilateral neural foraminal narrowing and moderate spinal canal narrowing. This is slightly worse when compared to the prior exam. At C7-T1: There is a normal disc, central canal, and neural foramen. MR/MR cervical spine wo con IMPRESSION: No cord compression or cord signal abnormality. At C6-C7: There is a broad-based disc bulge with facet hypertrophy and uncovertebral joint spurring. There is moderate bilateral neural foraminal narrowing and moderate spinal canal narrowing. This is slightly worse when compared to the prior exam. Additional degenerative changes are redemonstrated without significant interval progression as above. Impression dictated by: Osvaldo Pedroza M.D. 06/03/2025 4:36 PM Dictation Location: [place] [address] Electronically authenticated by: [id number] Y Date: 06/03/2025 16:36
--- NOTE | 2025-06-03 08:50 | XR_ITS ---
The [address] [address] Patient Name: PABLO ONEIL MRN: [id number] date: 1945 Sex: M Assigned Patient Location: MRI Current Patient Location: MRI Accession/Order Number: [id number] Exam Date: 06/03/2025 08:51 Report Date: 06/03/2025 09:18 At the request of: PHILIP TALAVERA NP Procedure: XR foreign body eye ISMA ORBITAL FOREIGN BODY FOR MRI - 2 views COMPARISON: 06/03/[address] sinuses 06/10/2024 CLINICAL DATA: MRI clearance. History of grinding. [place] and lateral views were obtained. No orbital radiopaque foreign bodies are noted. There is redemonstration of calcification at the falx as well as the suspected calcified frontal osteoma. XR/XR foreign body eye ISMA IMPRESSION: NO EVIDENCE OF ORBITAL FOREIGN BODY. Impression dictated by: Anai Roman M.D. 06/03/2025 9:18 AM Dictation Location: [place] [address] Electronically authenticated by: [id number] Y Date: 06/03/2025 09:18
== END 2025-06-03 08:28 | disposition home or self-care (01) ==
LOC: MRI 08:27
PROVIDERS: Visit Provider Nurse Practitioner
DX: M48.02 Spinal stenosis, cervical region (principal); M54.12 Radiculopathy, cervical region
CPT/HCPCS: 70030; 72141

== ENCOUNTER 2025-06-09 07:04 | Day surgery (SDC) | payer MEDICARE, OTHER, SELFPAY ==
--- OUTSIDE RECORDS SUMMARY | 2025-06-09 07:08 | XMS_ITS | Clinical Summary ---
Author Organization [facility] Address [address] [place] [address] Care Team Providers Care Fiction And Nonfiction Writer Prose Name Role Phone Jamar Jones DO Primary Care Provider [phone] Allergies Active AllergyReactionsCriticalityNoted DateCommentsPenicillinsHives,Other, UvcbjukPbvdsv01/10/2001 Other reaction(s): Unknown Other Reaction(s): HIVES, Unknown [...] DateDiagnosed DateArthritis of right hand03/20/2025ilateral carpal tunnel bsiwlwhp64/04/2025arpal tunnel nbuawevt78/04/2025Paresthesia of both hands03/20/2025ervical olzdlqzawja73/11/2024Mass of skin of left shoulder 03/27/2024Neck pain03/27/2024rimary osteoarthritis, right qtbaysch95/11/2024 Shoulder pain, right03/27/2024Type 2 diabetes mellitus with hyperglycemia 03/27/2024Kidney oncdvd8103/12/2024ardiovascular stress test vlqzzehg07/07/2023 06/22/2023Electrocardiogram mgmvztek31reoperative cardiovascular uzbzbwiwped08 Assessment & Plan (03/29/2024 3:06 PM EDT): RCRI=1 points Class II Risk 6.0 % 30-day risk of , [place], or cardiac arrest From a cardiac perspective pt may proceed with carpal tunnel surgery, he is a moderate risk for a low risk surgery. She may hold aspirin 5-7 days prior and resume post op. Please monitor hemodynamicscarefully and prevent any major fluid shifts. History of yfatzisskovz94History of kidney scezqw3306/22/2023 06/22/2023History of prostate qxzzxn36Hyperlipidemia06/22/2023 06/22/2023 Assessment & Plan (03/29/2024 3:07 PM EDT): Lipid abnormalities are stable continue Lipitor 40 mg daily lipid profile is well-controlled and liver function is normal Microscopic sieotvbhz34NocturiaRising PSA following treatment for malignant neoplasm of pjjzrgoa35 Vasomotor zxujhcxa89nisocoriaoronary aacbailbxcpyqouv45 Overview (06/22/2023): Jun 01, 2016 Entered By: [...] as tolerated and continue all medications. Essential zuxjzlbiqyav89 Assessment & Plan (03/29/2024 3:07 PM EDT): Hypertension is well-controlled at 127/51 Continue lisinopril/hydrochlorothiazide and metoprolol. Renal function normal Impaired asjwpqs43Nonrheumatic aortic (valve) stenosis Assessment & Plan (03/29/2024 3:06 PM EDT): Reviewed echocardiogram from July 08 moderate aortic stenosis noted and reviewed echo with patient and his No concerning symptoms at this time patient would like symptoms including palpitations, lightheadeddizziness, syncope, chest pain, worsening shortness of breath and he voiced understanding Monitor with echocardiogram Vqkkqmz56Sensorineural hearing loss, /16/2023 06/22/2023Sleep apneaType 2 diabetes mellitus without lvbaeuzpbtruk37iabetes ipzairdx79arcinoma of exbqzghp60 Overview (06/22/2023): S/p Radical 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 2018 Jun 01, 2016 Entered By: HARVINDER TORIBIO Comment: PROSTATECTOMY 10/2014Jun 01, 2016 Entered By: HARVINDER TORIBIO Comment: PROSTATECTOMY 10/2014 Encounters DateTypeDepartmentCare LrkwPhgfnmxmarp77/29/2025Orders Only [facility] [address] [address] Josie Soni MA Mitral valve stenosis and aortic valve stenosis (Primary Dx); Coronary artery disease, unspecified vessel or lesion type, unspecified whether angina present, unspecified whether mechoopda or transplanted heart; ALEXANDER (dyspnea on exertion)04/06/2025Results Follow-Up [facility] [address] [place] [address] Katelyn Quiroz CNP Lexiscan Stress Myocardial Perfusion Oyyufcx3004/04/2025Orders Only [facility] [address] [place] [address] ProviderCarmel MD 03/20/2025 9:20 AM EDTOffice Visit [facility] [address] [place] [address] Katelyn Quiroz CNP Mixed hyperlipidemia (Primary Dx); 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; Coronary artery disease involving mechoopda coronary artery of mechoopda heart without angina pectoris; Adult general medical exam; Essential hypertension; Other fatigue; Nonrheumatic aortic (valve) stenosis; Hx of CABGfrom Last 3 Months Family History Medical HistoryRelationNameCommentsCoronary artery diseaseFatherRelationName StatusCommentsFather Social History Tobacco UseTypesPacks/DayYears UsedDateSmoking Tobacco: NeverSmokeless Tobacco: Never Tobacco Cessation:Counseling Given: Not Answered Alcohol UseStandard Drinks/WeekCommentsNot Currently0 (1 standard drink = 0.6 oz pure alcohol)[place] Safety & EnvironmentAnswerDate RecordedFear of Current or Ex-PartnerNot on file09/07/2023Emotionally AbusedNot on file09/07/2023hysically AbusedNot on file09/07/2023Sexually AbusedNot on file09/07/2023hysically or Sexually AbusedNot on file09/07/2023Sex and Gender InformationValueDate Recorded Sex Assigned at IeqbnTfgx42/03/2025 11:14 AM EDTLegal PcmVdop3301/12/2022 11:25 PM EDTGender GrufgqhsZsrs35/03/2025 11:14 AM EDTSexual OrientationHeterosexual or Eclhsylx94/03/2025 11:14 AM EDT Last Filed Vital Signs Vital SignReadingTime TakenCommentsBlood Rizgxqod683/5809 9:28 AM EDT Abicp1143 9:28 AM EDTTemperature--Respiratory Rate--Oxygen Svaxbyqnam15% 03/20/2025 9:28 AM EDTInhaled Oxygen Concentration--Ohpsvg09.2 kg (201 lb) 03/20/2025 9:28 AM OPOUpamod260.1 cm (5' 5 )03/20/2025 9:28 AM EDTBody Mass Index33.45003/20/2025 9:28 AM EDT Plan of Treatment Health MaintenanceDue DateLast DoneCommentsDiabetes: Hemoglobin A1C1945 Medicare Annual Wellness (AWV)1945Diabetes: Retinopathy Screening 02/14/1956Depression Wutewwsuq92/31/1958Diabetes: Urine Protein Screening 1965Fall Risk Gulublccc09/31/2011COVID-19 Vaccine ( season) , 04/21/2022, 01/21/2022, Additional history existsInfluenza Vaccine (#1)509/04/2024, 05/01/2023, 04/28/2022, Additional history existsAdult Mozngjz73/04/2024, 06/19/2013, 04/24/2013, Additional history existsPneumococcal Vaccine: 50+ MzxuhLjouowddp48/27/2017, 06/01/2017, 05/11/2015, Additional history existsZoster GukusbtxHflnquexs14/04/2019, 06/11/2018, 06/27/2012HIB VaccinesAged OutNo longer eligible based [...] Procedures Procedure NamePriorityDate/TimeAssociated DiagnosisCommentsLEXISCAN STRESS MYOCARDIAL PERFUSION YVIZCZADknalqr56/18/2025 4:35 PM EDT from Last 3 Months Results * Lexiscan Stress Myocardial Perfusion Imaging (04/03/2025 4:35 PM EDT) Anatomical RegionLateralityModalityOther Narrative Authorizing ProviderResult TypeResult StatusHistorical Provider MDCV STRESS PROCEDURESFinal Result from Last 3 [place] [address] Care Teams Team MemberRelationshipSpecialtyStart DateEnd Date Jamar Jones DO [address] [place] [address] PCP - Btdljlh82/12/22
--- OUTSIDE RECORDS SUMMARY | 2025-06-09 07:08 | XMS_ITS ---
Author Organization [facility] Address [address] [place], [place] [id number] Care Team Providers Care Netting Weaver Name Role Phone Jamar Jones DO Primary Care Provider [phone] Galina Wall W[employer]OWS DESKTOP SU[employer] Unavailable [phone] Clementine Aguilar RN Unavailable [phone] Saul Galdamez MD Unavailable [phone] Active Problems ProblemNoted DateDiagnosed DateMalignant neoplasm of mmibzlna43/21/2015 Current Treatment and Therapy Plans AMB BONE [...]
--- OUTSIDE RECORDS SUMMARY | 2025-06-09 07:08 | XMS_ITS | CCD ---
Author Organization [facility] Care Team Providers Care Landscaping Crew Leader Name Role Phone Jamar Fall DO Primary Care Provider Dheeraj JAMES, Marco A R Unavailable [facility] 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.ALEXA, Christo Unavailable [phone] Lauren RN, Clementine Unavailable JAMAR FALL Primary Care Physician Jamar Fall DO Primary Care Provider Marco A Esqueda MD R Unavailable [facility] 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.ALEXA, Christo Unavailable Lauren WELSH, Clementine Unavailable Jamar Fall DO Primary Care Provider Dheeraj JAMES, Marco A R Unavailable [facility] 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.ASSISTANT MEN'S SOCCER COACH, Christo Unavailable [phone] Lauren RN, Clementine Unavailable [phone] Jamar Fall Unavailable JUAN DAVID, DR ALCARAZ [...] Consulting Unavaila ble Lauren RN, Clementine Unavailable [phone] Jamar Fall MD Primary Care Provider Juan [...] A Esqueda MD Attending Provider Unavailable Richie SINGLE END SEWER-CAnirudh Attending Provider [phone] Provider, Outside Attending Provider Unavailable aJmar Fall DO Attending Provider JUAN DAVID, JAMAR [...] of OnsetReaction(s) Facility (18 sources)Penicillins; Translations: [PENICILLINS]Drug Ccxytuf62-00-1211 [facility] (20 sources)Penicillin G; Translations: [penicillin G benzathine]Drug Allergy 69-03-0117Xaiprgg (qualifier value)[facility] (20 sources)PenicillinsDrug Qsyokck85-17-1658[facility] (20 sources)Simvastatin; Translations: [SIMVASTATIN]Drug Jtxbnyu08-96-5312 [facility] (1 source)PenicillinsDrug allergy (disorder)58-32-4604[facility] (1 source)PenicillinDrug AllergyUnkcarson tah[facility] urgent careSimple [employer] Other (1 source)Allergies ReconciledPropensity to adverse reactionsSt. Joseph Hospital And Health CenterSimple Lifeforms Other (1 source)patient allergy list reviewed by nurse or physiciaPropensity to adverse muybeohfh09-31-5090Ntvbhkc:[employer] / [employer] Other (6 sources)SimvastatinPropensity to adverse lczhuhvaw70-04-8177[facility] (1 source)PenicillinsDrug Gwdxeem60-85-3758[facility] Medications Current Medications MedicationDrug Class(es)DatesSig (Normalized)Sig (Original)Aspir-81 81 MG (20 sources)take 1 tablet by mouth once dailyAspir-81 81 MG 1 tablet Orally Once a day Activeaspirin 81 mg delayed release oral tablet (20 sources)Platelet Aggregation Inhibitor, Nonsteroidal Anti-inflammatory Drug Start: 28-78-9777ydpt 1 tablet by mouth once dailyAspirin 81 mg tablet,delayed release (DR/EC) Active 81 MG PO Daily September 08, 2023 1:00am Complies with drug therapyStart: 88-23-6686anrh 1 mg by mouth once dailyaspirin 81 mg oral tablet mg tab(s), Oral, Daily, Refills(s) 0 Start Date: 02/04/19 Status: Ordered Repeat number: 1Comment on above:Take 81 mg by mouth once daily.atorvastatin 40 mg oral tablet (20 sources)HMG-CoA Reductase InhibitorStart: 79-59-7210szxx 1 tablet by mouth once daily in the eveningAtorvastatin 40 mg tablet Active 0 .ROUTE .COMPLEX 90 September 01, 2024 9:43am TAKE 1 TABLET BY MOUTH ONCE EVERY EVENING Complies with drug therapyStart: 09-06-2023 End: 02-94-0156lsri 1 tablet by mouth once daily in the eveningAtorvastatin 40 mg tablet Discontinued 0 .ROUTE .COMPLEX 90 September 06, 2023 9:32am September 08, 2023 3:51pm TAKE 1 TABLET BY MOUTH ONCE EVERY EVENINGStart: 04-17-2023 End: 03-59-4575tnik 1 tablet by mouth once dailyAtorvastatin 40 mg tablet Discontinued 40 MG PO Daily September 08, 2023 3:49pm September 01, 2024 9:43amStart: 98-98-1068rbrb 1 tablet by mouth once dailyatorvastatin 20 mg Tab 20 mg = 1 tab(s), Oral, Daily, Refills(s) 0 Start Date: 02/04/19 Status: Ordered Comment on above:Take 20 mg by mouth once daily.Take 40 mg by mouth once daily. calcium citrate 950 mg / cholecalciferol 250 unt oral tablet (20 sources)Vitamin DStart: 98-97-2108pbdz 2 tablets by mouth once dailyCalcium Citrate-Vitamin [...] tablet (20 sources)Androgen Receptor InhibitorStart: 04-01-2024 End: 75-09-1381bglk 4 tablets by mouth once dailyenzalutamide (XTANDI) 40 mg tablet Take 4 tablets (160 mg) by mouth once daily. 120 tablet 11 05/08/2024 ActiveStart: 05-08-2023 End: 55-15-0638epur 2 tablets by mouth once dailyenzalutamide (XTANDI) 80 mg tablet TAKE 2 TABLETS (160 MG) BY MOUTH ONCE DAILY. 60 tablet 11 04/01/2024 08/08/2024 Discontinued (Discontinued by Patient)Start: 47-97-2448dcrm 1 mg by mouth once dailyXtandi 80 mg oral tablet mg tab(s), Oral, Daily, Refills(s) 0 Start Date: 05/13/22 Status: Ordered Repeat number: 1Start: 10-28-2021 End: 36-31-3280kahc 2 tablets by mouth once dailyenzalutamide (XTANDI) 80 mg tablet Take 2 tablets (160 mg) by mouth once daily. 60 tablet 3 10/28/2021 04/27/2023 DiscontinuedComment on above:Take 2 tablets (160 mg) by mouth once daily.fluocinonide 0.5 mg/ml topical cream (3 sources)CorticosteroidStart: 02-26-2024 End: 14-92-5634brguetfpebjn (Lidex) 0.05 % cream Indications: Psoriasis vulgaris Apply topically 2 (two) times a day 60 g 11 02/26/2024 02/25/2025 Active fluorouracil 50 mg/ml topical cream (5 sources)Nucleoside Metabolic InhibitorStart: 29-18-8000weotnfnnkxyo (Efudex) 5 % cream Indications: Actinic keratosis Apply to directed areas on the face, ears and back of hands twice a day x 14 days. Dispense 30 day supply but only use for 14 days. 40 08/28/2023 Activeglimepiride 1 mg oral tablet (20 sources)SulfonylureaStart: 71-83-8746qenx 0.5 tablet by mouth once daily at breakfastGlimepiride 1 mg tablet Active 0 .ROUTE .COMPLEX August 02, 2024 3:03pm TAKE 1/2 TABLET BY MOUTH DAILY 30 MINUTES PRIOR TO BREAKFAST Complies with drug therapyStart: 08-14-5202gyhc 0.5 mg by mouth once dailyGlimepiride Active 0.5 MG PO Daily September 08, 2023 1:00amStart: 10-15-2021 End: 58-03-5251winb 0.5 mg by mouth once dailyGlimepiride 1 mg tablet Discontinued 0.5 MG PO Daily September 08, 2023 1:00am August 02, 2024 3 :03pmStart: 65-70-6705wrcv 0.5 mg by mouth once dailyGLIMEPIRIDE ORAL Take 0.5 mg by mouth once daily. 10/15/2021 ActiveStart: 50-89-8183nhhw 0.5 mg by mouth once dailyGLIMEPIRIDE ORAL Take 0.5 mg by mouth once daily. 0 10/15/2021 Active Start: 42-00-9482ysdirpqyrdh Oral, Daily, Refills(s) 0 Start Date: 05/14/21 Status: Ordered Repeat number: 1Start: 76-07-2327jfjjobndxnl Oral, Daily, Refills(s) 0 Start Date: 05/14/21 Status: OrderedComment on above:TAKE 1/2 TABLET BY MOUTH DAILY 30 MINUTES PRIOR TO BREAKFASTTake 0.5 mg by mouth once daily. hydroCHLOROthiazide 12.5 mg / lisinopril 20 mg oral tablet (20 sources)Thiazide Diuretic, Angiotensin Converting Enzyme InhibitorStart: 10-12-2023 End: 79-18-0213wlvb 1 tablet by mouth once dailyLisinopril-Hydrochlorothiazide 20-12.5 mg tablet Active 0 .ROUTE .COMPLEX 90 October 07, 2024 6:50am TAKE 1 TABLET BY MOUTH EVERY DAY Complies with drug therapyStart: 02-04-2019 End: 12-08-4843lwpr 1 tablet by mouth once dailyLisinopril-Hydrochlorothiazide 20-12.5 [...] mg/actuat metered dose nasal spray (19 sources)AnticholinergicStart: 55-08-2684ulis 1 spray(s) nasal route three times dailyIpratropium [place] 42 mcg (0.06 %) spray,non-aerosol Active 2 SPRAY INTRANASAL Three times daily December 27, 2024 12:00am administer into each nostril Complies with drug therapyStart: 80-40-8630kmscrhtqygx Nasal 0.06% [place] Refill(s) 0 Start Date: 10/20/23 Status: Ordered Repeat number: 1Start: 06-05-2023 End: 84-55-5779bcal 2 spray(s) nasal route in the morning, then take 2 spray(s) nasal route in the evening, then take 2 spray(s) nasal route at bedtime ipratropium (Atrovent) 0.06 % nasal spray Indications: Vasomotor rhinitis Administer 2 sprays into each nostril in the morning and 2 sprays in the evening and 2 sprays before bedtime. 45 mL 3 06/05/2023 ActiveStart: 06-05-2023 End: 52-35-4604hxtttwbpwun bromide (ATROVENT) 42 mcg (0.06 %) nasal spray 2 Sprays. 06/05/2023 06/04/2024 ActiveComment on above:2 Sprays.metFORMIN hydrochloride 500 mg oral tablet (20 sources)BiguanideStart: 80-95-4732otvr 2 tablets by mouth once daily at mealtimeMetformin 500 mg tablet Active 0 .ROUTE .COMPLEX 180 July 31, 2024 8:39am TAKE 2 TABLETS BY MOUTH DAILY WITH FOOD 90 Complies with drug therapy Start: 09-08-2023 End: 15-14-8015juca 2 tablets by mouth once dailyMetformin 500 mg tablet Discontinued 1000 MG PO Daily September 08, 2023 1:00am July 31, 2024 8:39amStart: 02-34-6429wshe 1000 mg by mouth once dailyMetformin Active 1000 MG PO Daily September 08, 2023 1:00amStart: 29-70-6918vqga 1 tablet by mouth once dailymetFORMIN (GLUCOPHAGE) 1,000 mg tablet Take 1,000 mg by mouth once daily. 08/17/2021 ActiveStart: 18-91-3846duuc 2 tablets by mouth once daily at mealtime metFORMIN (GLUCOPHAGE) 500 mg tablet TAKE 2 TABLETS BY MOUTH ONCE A DAY WITH FOOD 0 08/17/2021 ActiveStart: 58-83-0667nacz 1 mg by mouth twice dailymetformin 1000 [...] oral tablet (20 sources)beta-Adrenergic BlockerStart: 12-04-2023 End: 93-74-8384sirb 1 tablet by mouth twice dailyMetoprolol Tartrate 25 mg tablet Active 0 .ROUTE .COMPLEX 180 October 08, 2024 12:01pm TAKE 1 TABLET BY MOUTH TWICE A DAY Complies with drug therapyStart: 05-83-9921wzij 1 tablet by mouth twice dailyMetoprolol Tartrate Active 0 .ROUTE .COMPLEX 180 December 04, 2023 1:04pm TAKE 1 TABLET BY MOUTH TWICEA DAYStart: 09-08-2023 End: 51-82-0216bqmi 1 tablet by mouth twice dailyMetoprolol Tartrate 25 mg tablet Discontinued 25 MG PO Twice daily September 08, 2023 1:00am December 04, 2023 1:04pmStart: 18-09-0383sebg 1 tablet by mouth every twenty-four hours metoprolol succinate ER (TOPROL XL) 25 mg 24 hr tablet Take by mouth. 02/04/2019 ActiveStart: 70-50-5603dvzq 1 tablet by mouth twice dailymetoprolol 25 mg ER Tab 25 mg = 1 tab(s), Oral, BID, Refills(s) 0 Start Date: 02/04/19 Status: Sherriee d Repeat number: 1take 1 tablet by mouth every twelve hoursmetoprolol tartrate (Lopressor) 25 MG tablet Take 25 mg by mouth every 12 (twelve) hours Active End: 59-00-3560sqyx 1 tablet by mouth twice dailyMetoprolol Tartrate 25 MG TAKE 1 TABLET BY MOUTH TWICE A DAY ActiveComment on above:Take 25 mg by mouth.Take 25 mg by mouth twice daily. Take by mouth.Zfasygcbommrb-Otcromil-Kzmydt (MULTIVITAMIN 50 PLUS) tab (20 sources)Lzzqkiblntrvf-Zalfgbkb-Cpspss (MULTIVITAMIN 50 PLUS) tab Take 1 tablet by mouth once daily. YifnvkZxaolrfhdnftw-Ikyoyoem-Jofnkr (MULTIVITAMIN 50 PLUS) tab Take 1 tablet by mouth once daily. 0 ActiveComment on above:Take 1 tablet by mouth once daily.traMADol hydrochloride 50 mg oral tablet (2 sources)Opioid AgonistStart: 03-27-2645mcbSTCqf HCl 50 MG 1 Orally every 8 hours as needed for 7 days Jul, ActiveVitamin D3 (6 sources)Start: 64-09-9822Hrlafoq D3 Start Date: 06/22/20 Status: Ordered Repeat number: 1Start: 30-75-4720Suusihx D3 Start Date: 06/22/20 Status: Ordered Completed/Discontinued [...] + VITAMIN D ORAL) (12 sources) End: 60-19-4745jkqn 1 tablet by mouth twice dailycalcium carbonate/vitamin [...] injection (3 sources)RANK Ligand InhibitorStart: 08-08-2024 End: 79-46-7591tcfpqx 1 dose by subcutaneous injection ksug545 mg, SUBCUTANEOUS, ONCE, 1 dose, On [place] 08/08/24 at 1000, REFRIGERATEStart: 05-09-2024 End: 00-09-3678utclii 1 dose by subcutaneous injection [id number] mg, SUBCUTANEOUS, ONCE, 1 dose, On [facility] 05/09/24 at 1000, REFRIGERATEStart: 02-02-2024 End: 10-03-3342bivxrznvy 120 mg injection (XGEVA)docusate sodium 100 mg oral capsule (2 sources)docusate sodium (COLACE) 100 mg capsule q 24 HR. 0 ActiveComment on above:q 24 HR.enteric contrast (will be provided with radiology test) (3 sources)Start: 10-28-2021 End: 40-81-2115myexjuv contrast (will be provided with radiology test) For CT CHESTABD/PEL W IVCON Routine order Administer, As Directed One Time Only, via Oral, Rectal, both Oral and Rectal, Enteric Tube, Stoma orIndwelling Catheter, Enteric Contrast as designated per enteric contrast guidelines 1 Each 0 022 10/29/2021 ExpiredStart: 10-28-2021 End: 86-82-2024gmemiag contrast (will be provided with radiology test) [...] with radiology test) (3 sources)Start: 10-28-2021 End: 63-73-6910co contrast (will be provided with radiology test) [...] Each 0 10/28/2021 10/29/2021 ExpiredStart: 10-28-2021 End: 22-96-0184yc contrast (will be provided with radiology test) [...] guidelines link.Lidocaine (14 sources)Antiarrhythmic, Amide Local AnestheticStart: 96-04-2576Eobsvbjte Feb, 20 mgoxyCODONE hydrochloride 5 mg oral tablet (2 sources)Opioid AgonistoxyCODONE IR (ROXICODONE) 5 mg immediate release tablet q 4 HR. 0 ActiveComment on above:q 4 HR.predniSONE 5 mg oral tablet (2 sources)Start: 11-04-0337umny 1 tablet by mouth once dailypredniSONE (DELTASONE) 5 mg tablet Take 5 mg by mouth once daily. 0 08/23/2021 Active Comment on above:Take 5 mg by mouth once daily.tamsulosin hydrochloride 0.4 mg oral capsule (2 sources)alpha-Adrenergic Blockertamsulosin (FLOMAX) 0.4 mg q 24 HR. 0 Active Comment on above:q 24 HR.triamcinolone acetonide 40 mg/ml injectable suspension (20 sources)CorticosteroidStart: 48-09-3612Yhmrdgm-40 Feb, 40 mg Problems Active Problems Problem ClassificationProblemDateDocumented DateEpisodic/ChronicAbdominal pain (3 sources)Right upper quadrant pain; Translations: [Lower abdominal pain, unspecified]EpisodicCalculus of urinary tract (11 sources)History of calculus of kidney; Translations: [Personal history of urinary calculi]Onset: 45-68-3399YnxlbnelXktjgc of prostate (20 sources)Malignant tumor of prostate; Translations: [Malignant neoplasm of prostate]Onset: 754413-09-2077MmksnegUbniqzx on above:S/p Radical 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 2017Dx: 2014, s/p radical prostatectomy, ADT, EBRT, chemotherapyDx: 2014, s/p radical prostatectomy,Recurrence 2017 ADT, EBRT, chemotherapy,Increasing PSA 2019 ADT,Bone mets ADT, Xtandi ancer of prostate (8 sources)History of malignant neoplasm of prostate; Translations: [Personal history of malignant neoplasm ofprostate]Onset: 162596-38-8897Saayhdfa Complication of device; implant or graft (2 sources)Atherosclerosis of coronary artery bypass graft(s) without angina pectoris; Translations: [Atherosclerosis of coronary artery bypass graft(s) without angina pectoris]Onset: 37-27-3297IisdbdpAtkweeanua disorders (18 sources)Left bundle branch block; Translations: [Other left bundle branch block]Onset: 10-05-6964IicpzkxWbyjbjoc atherosclerosis and other heart disease (20 sources)Coronary arteriosclerosis; Translations: [Atherosclerotic heart disease of kiana coronary artery without angina pectoris]Onset: 10-10-2014 79-63-8662AxqzhqlXksvjtw on above:CABG 2014,Stress lexiscan: nondiagnostic - 03/2025Stress NM: no reversible defect, LVEF 55%, no TID - 03/2025Deficiency and other anemia (1 source)Anemia, unspecified; Translations: [Anemia, unspecified type]Onset: 09-07-2413NmhddbgjSawfrlry mellitus with complications (20 sources)Type 2 diabetes mellitus; Translations: [Type 2 diabetes mellitus with hyperglycemia]Onset: 24-04-3069WqalxinJyvwgyem mellitus without complication (19 sources)Type 2 diabetes mellitus without complication; Translations: [Type 2 diabetes mellitus without complications]Onset: 62-21-6924DttbbgbRcianpqga of lipid metabolism (20 sources)Hyperlipidemia; Translations: [Hypercholesterolemia]Onset: 372812-75-1870RoneqenSmyttbjko hypertension (20 sources)Hypertensive disorder; Translations: [Essential hypertension]Onset: 06-01-2023 Resolved: 545382-02-3457CahpyxaZxyrwvoxbzhqp symptoms and ill-defined conditions (17 sources)Microscopic hematuria; Translations: [Nocturia]Onset: 04-14-2023 69-94-8074BblsauntHkysp valve disorders (20 sources)Aortic stenosis, non-rheumatic ; Translations: [Nonrheumatic aortic (valve) stenosis]Onset: 46-70-4214WflcdffNvvjtgx on above:Echo: ROGER 1.13, Velocity 324, 04/2022Echo: [...] and other lower urinary tract symptoms [LUTS]]Onset: 23-16-3202Tldxgkd Immunizations and screening for infectious disease (1 source)Vaccination given; Translations: [Encounter for immunization]Episodic Nausea and vomiting (2 sources)NauseaEpisodicNeoplasms of unspecified nature or uncertain behavior (2 sources)Neoplastic disease; Translations: [Neoplasm of unspecified behavior of bone, soft tissue, and skin]07-45-2930FaepmienCnwkzwrby or stenosis of precerebral arteries (1 source)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; Translations: [Occlusion and stenosis of carotid artery without mention of cerebral infarction]Onset: 95-98-9458GqqnulsDkejfevtnzpgtl (20 sources)Osteoarthritis of joint of right shoulder region; Translations: [Primary osteoarthritis, right shoulder]ChronicOther and unspecified benign neoplasm (2 sources)Melanocytic nevus of trunk; Translations: [Melanocytic nevi of trunk] 25-51-4612TkffulmdCyfab circulatory disease (2 sources)Cardiovascular symptoms; Translations: [Other specified symptoms and signs involving the circulatory and respiratory systems]Onset: 07-25-2018 EpisodicOther congenital anomalies (1 source)Other congenital malformations of iris; 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]ChronicOther ear and sense organ disorders (3 sources)Hearing loss; Translations: [Unspecified hearing loss, unspecified ear]Onset: 211074-40-1926PldmndvUqbet ear and sense organ disorders (6 sources)Sensorineural hearing loss, bilateral; Translations: [Sensorineural hearing loss, bilateral]Onset: 706315-96-0626LvyvcvzAcbjk ear and sense organ disorders (1 source)Impacted cerumen, right earEpisodicOther ear and sense organ disorders (1 source)Lesion of skin of right ear; Translations: [Disorder of right external ear, unspecified]11-03-4020TxohgggnGjuxa eye disorders (7 sources)Anisocoria; 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]Onset: ChronicOther gastrointestinal disorders (2 sources)Diarrhea; Translations: [Diarrhea, unspecified]44-74-4064Zuqkkodx Other gastrointestinal disorders (1 source)Diarrhea, unspecified; Translations: [Diarrhea]30-01-9554JqmdhlmjAfnur inflammatory condition of skin (2 sources)Psoriasis vulgaris; [...] [Personal history of other malignant neoplasm of skin]28-53-4575QpwqpjppNstzx non- traumatic joint disorders (7 sources)Pain in right shoulder; Translations: [Right shoulder pain]Episodic Other nutritional; endocrine; and metabolic disorders (20 sources)Body mass index 30+ - obesity; Translations: [Obesity, unspecified] Onset: 62-66-1147TjcwiqkJnrzy nutritional; endocrine; and metabolic disorders (2 sources)Obesity, unspecifiedChronicOther nutritional; endocrine; and metabolic disorders (1 source)Simple obesity ; Translations: [Other obesity due to excess calories] Onset: 20-16-4565TgpylzzZnicf nutritional; endocrine; and metabolic disorders (8 sources)Obesity; Translations: [Obesity, unspecified]Onset: 06-01-2023 40-52-6827VjckemfTixsn nutritional; endocrine; and metabolic disorders (1 source)Obese class II; Translations: [Body mass index 35.0-35.9, adult]Onset: 41-96-2163RurqlwkXebur nutritional; endocrine; and metabolic disorders (1 source)Obese class I; Translations: [Body mass index 34.0-34.9, adult]Onset: 32-28-4142WfrvzwhBibpf nutritional; endocrine; and metabolic disorders (14 sources)Obesity [...] following treatment for malignant neoplasm of prostate]Onset: 23-84-7232Dbpcmzed Other skin disorders (4 sources)Actinic keratosis; Translations: [Actinic keratosis]08-28-2023 EpisodicOther skin disorders (4 sources)Mass of skin of left upper limb; Translations: [Localized swelling, mass and lump, left upper limb]57-18-4933CcaggfrvYmlde skin disorders (4 sources)Mass of skin of right upper limb; Translations: [Localized swelling, mass and lump, right upper limb]75-90-6770YdvyvswtOoagk skin disorders (1 source)Localized swelling, mass and lump, left upper limb; Translations: [Localized superficial swelling, mass, or lump]31-93-0027XtlrapnfCeuer skin disorders (2 sources)Seborrheic keratosis; Translations: [Other seborrheic keratosis] 35-41-9954OsnsvvyiBsdlk skin disorders (2 sources)Lentiginosis; Translations: [Other melanin hyperpigmentation] 46-97-1259AwdjmnjjQfhxj upper respiratory disease (1 source)Seasonal allergic rhinitis; Translations: [Other seasonal allergic rhinitis]Onset: 46-08-8354XogdsqtPwbje upper respiratory disease (7 sources)Vasomotor rhinitis; Translations: [Vasomotor rhinitis]Onset: 220991-89-3155VmnmwesUmhek upper respiratory disease (1 source)Vasomotor rhinitisChronicOther upper respiratory disease (1 source)Other specified disorders of nose and nasal sinusesEpisodicOther upper respiratory disease (2 sources)Mass of body region; Translations: [Other specified disorders of nose and nasal sinuses]69-52-7411ZuwdybdaOqqvzcslhn disorders (not diabetes) (6 sources)Other specified diseases of pancreas; Translations: [Cyst of pancreas]EpisodicComment on above:MRCP: no significant change in 2021, 2022, 4Residual codes; unclassified (20 sources)Obstructive sleep apnea syndrome; Translations: [Obstructive sleep apnea (adult) (pediatric)]Onset: 692638-45-3886LdnciizKjwtlaxi codes; unclassified (7 sources)Obstructive sleep apnea (adult) (pediatric); Translations: [Obstructive sleep apnea (adult)(pediatric)]ChronicResidual codes; unclassified (6 sources)Sleep apnea; Translations: [Sleep apnea, unspecified]Onset: 968489-05-4826PeehhslAtngzbrqx malignancies (8 sources)Secondary malignant neoplasm of bone; Translations: [Secondary malignant neoplasm of bone]ChronicSecondary malignancies (3 sources)Secondary malignant neoplasm of bone; Translations: [Secondary malignant neoplasm of bone (HCC)]Onset: 92-75-1526OcwjdyqDyayyjtdpry; intervertebral disc disorders; other back problems (20 sources)Cervical spondylosis; Translations: [Other spondylosis with radiculopathy, cervical region]Onset: 13-39-1642UgpevakYsxpnkz and strains (7 sources)Strain of hamstring muscle; Translations: [Right hamstring muscle strain]EpisodicUnclassified (1 source)OPENED IN ERRORUnclassified (3 sources)Hearing loss; Translations: [Impaired hearing]Onset: 06-01-2023 06-01-2023 Past or Other Problems Problem ClassificationProblemDateDocumented DateEpisodic/ChronicAcute posthemorrhagic anemia (1 source)Acute posthemorrhagic anemia; Translations: [Acute posthemorrhagic anemia]Onset: 68-96-4236QwqmhywpQbovtbqk reactions (1 source)Idiopathic urticaria; Translations: [Idiopathic urticaria]Onset: 45-53-5852UhqvizssSmel; stupor; and brain damage (1 source)Somnolence; Translations: [Somnolence]Onset: 88-22-4894Lviijupz Deficiency and other anemia (1 source)Anemia; Translations: [Anemia, unspecified]Onset: 30-69-6909Xxqnmlpz Diabetes mellitus without complication (1 source)Impaired fasting glycemia; Translations: [Impaired fasting glucose] Onset: 48-65-9139JsguirrrMcgzoaijwjgs injury (1 source)Concussion with no loss of consciousness; Translations: [Concussion without loss of consciousness, subsequent encounter]Onset: 05-31-4307Aflgkzvj Malaise and fatigue (1 source)Malaise and fatigue; Translations: [Other malaise and fatigue]Onset: 78-88-4224QjjahdscBvbxquenche chest pain (1 source)Chest pain; Translations: [Chest pain, unspecified]Onset: 08-25-2014 EpisodicOther non-traumatic joint disorders (5 sources)Pain in left shoulder; Translations: [PAIN IN LEFT SHOULDER]Onset: 57-78-0692KsfudbahGzrus nutritional; endocrine; and metabolic disorders (1 source)Morbid obesity; Translations: [Morbid (severe) obesity due to excess calories] Resolved: 33-33-3470QlqajjlIhnhmyci codes; unclassified (1 source)Requires influenza virus vaccination; Translations: [Need for prophylactic vaccination and inoculation, Influenza]Onset: 73-38-5089Dihcyxwv Spondylosis; intervertebral disc disorders; other back problems (6 sources)Neck pain; Translations: [Cervicalgia]Onset: 037361-58-4908 Episodic Results Test NameValueInterpretationReference RangeFacilityCNOVSPon 20-01-1788SOCIKZ Visit (SP) [facility] PABLO FELIX ([id number]) 1945 M Date Time Provider Department 05/22/25 11:00 AM CHARY SHERMAN During your visit today, we recorded the following information about you: Temperature Pulse Respiration Blood pressure 97.2 degrees 51/minute 16/minute 140/56 Weight Height 92.3 kg 1.676 m Chary Sherman APRN.CNP 05/22/2025 3:33 PM Signed NAME: Folk, Helen [facility] NO.: [id number] DATE OF SERVICE: May 22, 2025 (Naveen) Some elements in this clinic note that are critical to medical decision making have been carefully reviewed and included from a prior clinic note dated: February 20, 2025 (Denice) Referring Provider: RADHA Additional Clinicians involved in Pablo Felix's care: Dr. Jamar Fall, Dr. Anthony Scruggs, Dr. Khan, [facility] Cardiology DIAGNOSIS: Metastatic prostate cancer CASE SUMMARY / ASSESSMENT: 80 year old man with. 1. Metastatic prostate cancer (HCC) - ICD9: 185, ICD10: C61 (primary diagnosis) The patient was diagnosed with early-stage high-grade prostate cancer in June 2014 (TRUS biopsy 07/02/2014). He underwent a radical prostatectomy on 11/05/2014. Pathology consistent with stage IIIC (pT2b, N0, M0), [place] 5+4 equal 9. 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 Stable on current medications. Continue per PCP/cardiology. [...] with lactase enzyme supp (more content not included)...NormalKind[facility] Healthcare W Auto Differential panel (Bld)on 63-62-8138Yuvvnhxsx (Bld) [#/Vol] 0.03 10*3/uLNormal<0.11CSt. [facility]'s Hospital on above:Order Comment: Specimen Type: BLOOD SPECIMEN Ordering Facility: [facility] Address: [address] [place], [place] [address]Performed By: #### 2857-1 #### [facility] CLIA [id number] [address] [place] [address] [place] AMERICABasophils/100 WBC (Bld)0.4 %Normal [facility] on above:Order Comment: Specimen Type: BLOOD SPECIMEN Ordering Facility: [facility] Address: [address] [place], [place] [address]Performed By: #### 2857-1 #### [facility] CLIA [id number] [address] [place] [address] [place] OF AMERICADifferential cell count method Nom (Bld)AutoNormalCSt. Anthony's Hospital on above:Order Comment: Specimen Type: BLOOD SPECIMEN Ordering Facility: [facility] Address: [address] [place], [place] [address]Performed By: #### 2857-1 #### [facility] CLIA [id number] [address] [place] [address] [place] AMERICAEosinophils (Bld) [#/Vol]0.36 10*3/uLNormal<0.46[facility] on above:Order Comment: Specimen Type: BLOOD SPECIMEN Ordering Facility: [facility] Address: [address] [place], [place] [address]Performed By: #### 2857-1 #### [facility] CLIA [id number] [address] [place] [address] [place] AMERICAEosinophils/100 WBC (Bld)5.2 %Normal [facility] on above:Order Comment: Specimen Type: BLOOD SPECIMEN Ordering Facility: [facility] Address: [address] [place], [place] [address]Performed By: #### 2857-1 #### [facility] CLIA [id number] [address] [place] [address] [place] AMERICAErythrocyte distribution width (RBC) [Ratio]12.6 %Pvjxjm61.5-15.0[facility] on above:Order Comment: Specimen Type: BLOOD SPECIMEN Ordering Facility: [facility] Address: [address] [place], [place] [address]Performed By: #### 2857-1 #### [facility] CLIA [id number] [address] [place] [address] [place] AMERICAHematocrit (Bld) [Volume fraction] 34.8 %Low39.0-51.0[facility] on above:Order Comment: Specimen Type: BLOOD SPECIMEN Ordering Facility: [facility] Address: [address] [place], [place] [address]Performed By: #### 2857-1 #### [facility] CLIA [id number] [address] [place] [address] [place] AMERICAHemoglobin (Bld) [Mass/Vol]11.7 g/dL Low13.0-17.0[facility] on above:Order Comment: Specimen Type: BLOOD SPECIMEN Ordering Facility: [facility] Address: [address] [place], [place] [address]Performed By: #### 2857-1 #### [facility] CLIA [id number] [address] [place] [address] [place] AMERICAImmature granulocytes (Bld) [#/Vol] 0.06 10*3/uLNormal<0.10[facility] on above:Order Comment: Specimen Type: BLOOD SPECIMEN Ordering Facility: [facility] Address: [address] [place], [place] [address]Performed By: #### 2857-1 #### [facility] CLIA [id number] [address] [place] [address] [place] AMERICAImmature granulocytes/100 WBC (Bld) 0.9 %NormalOhio State Harding Hospital on above:Order Comment: Specimen Type: BLOOD SPECIMEN Ordering Facility: [facility] Address: [address] [place], [place] [address]Performed By: #### 2857-1 #### [facility] CLIA [id number] [address] [place] [address] [place] AMERICALymphocytes (Bld) [#/Vol]2.01 10*3/uLNormal1.00-4.00[facility] on above:Order Comment: Specimen Type: BLOOD SPECIMEN Ordering Facility: [facility] Address: [address] [place], [place] [address]Performed By: #### 2857-1 #### [facility] CLIA [id number] [address] [place] [address] [place] AMERICALymphocytes/100 WBC (Bld)29.0 % NormalOhio State Harding Hospital on above:Order Comment: Specimen Type: BLOOD SPECIMEN Ordering Facility: [facility] Address: [address] [place], [place] [address]Performed By: #### 2857-1 #### [facility] CLIA [id number] [address] [place] [address] (RBC) [Entitic mass]32.1 pg Ityzsx35.0-34.0[facility] on above:Order Comment: Specimen Type: BLOOD SPECIMEN Ordering Facility: [facility] Address: [address] [place], [place] [address]Performed By: #### 2857-1 #### [facility] CLIA [id number] [address] [place] [address] (RBC) [Mass/Vol]33.6 g/dLNormal 30.5-36.0[facility] on above:Order Comment: Specimen Type: BLOOD SPECIMEN Ordering Facility: [facility] Address: [address] [place], [place] [address]Performed By: #### 2857-1 #### [facility] CLIA [id number] [address] [place] [address] [place] AMERICAMCV (RBC) [Entitic vol]95.6 fLNormal 80.0-100.0[facility] on above:Order Comment: Specimen Type: BLOOD SPECIMEN Ordering Facility: [facility] Address: [address] [place], [place] [address]Performed By: #### 2857-1 #### [facility] CLIA [id number] [address] [place] [address] [place] AMERICAMonocytes (Bld) [#/Vol]0.60 10*3/uL Normal<0.87[facility] on above:Order Comment: Specimen Type: BLOOD SPECIMEN Ordering Facility: [facility] Address: [address] [place], [place] [address]Performed By: #### 2857-1 #### [facility] CLIA [id number] [address] [place] [address] [place] AMERICAMonocytes/100 WBC (Bld)8.6 %Normal [facility] on above:Order Comment: Specimen Type: BLOOD SPECIMEN Ordering Facility: [facility] Address: [address] [place], [place] [address]Performed By: #### 2857-1 #### [facility] CLIA [id number] [address] [place] [address] [place] AMERICANeutrophils (Bld) [#/Vol]3.88 10*3/uLNormal1.45-7.50[facility] on above:Order Comment: Specimen Type: BLOOD SPECIMEN Ordering Facility: [facility] Address: [address] [place], [place] [address]Performed By: #### 2857-1 #### [facility] CLIA [id number] [address] [place] [address] [place] AMERICANeutrophils/100 WBC (Bld)55.9 % NormalOhio State Harding Hospital on above:Order Comment: Specimen Type: BLOOD SPECIMEN Ordering Facility: [facility] Address: [address] [place], [place] [address]Performed By: #### 2857-1 #### [facility] CLIA [id number] [address] [place] [address] [place] AMERICANucleated RBC (Bld) [#/Vol]10*3/uL Normal<0.01[facility] on above:Order Comment: Specimen Type: BLOOD SPECIMEN Ordering Facility: [facility] Address: [address] [place], [place] [address]Performed By: #### 2857-1 #### [facility] CLIA [id number] [address] [place] [address] [place] AMERICANucleated RBC/100 WBC (Bld) [Ratio] 0.0 /100 WBCNormalCSt. Anthony's Hospital on above:Order Comment: Specimen Type: BLOOD SPECIMEN Ordering Facility: [facility] Address: [address] [place], [place] [address]Performed By: #### 2857-1 #### [facility] CLIA [id number] [address] [place] [address] [place] AMERICAPlatelet mean volume (Bld) [Entitic vol]10.4 fLNormal9.0-12.7CSt. [facility]'s Hospital on above:Order Comment: Specimen Type: BLOOD SPECIMEN Ordering Facility: [facility] Address: [address] [place], [place] [address]Performed By: #### 2857-1 #### [facility] CLIA [id number] [address] [place] [address] [place] AMERICAPlatelets (Bld) [#/Vol]206 10*3/uL Ufvyvo261-455InvwuvlytOhio State Harding Hospital on above:Order Comment: Specimen Type: BLOOD SPECIMEN Ordering Facility: [facility] Address: [address] [place], [place] [address]Performed By: #### 2857-1 #### [facility] CLIA [id number] [address] [place] [address] STATES OF AMERICARBC (Bld) [#/Vol]3.64 10*6/uLLow 4.20-6.00[facility] on above:Order Comment: Specimen Type: BLOOD SPECIMEN Ordering Facility: [facility] Address: [address] [place], [place] [address]Performed By: #### 2857-1 #### [facility] CLIA [id number] [address] [place] [address] STATES AMERICAWBC (Bld) [#/Vol]6.94 10*3/uLNormal 3.70-11.00[facility] on above:Order Comment: Specimen Type: BLOOD SPECIMEN Ordering Facility: [facility] Address: [address] [place], [place] [address]Performed By: #### 2857-1 #### [facility] CLIA [id number] [address] [place] [address] AMERICAComprehensive metabolic 2000 panelon 99-28-0805Vywjncg [Mass/Vol]4.2 g/dLNormal3.9-4.9CL[facility] Comment on above:Order Comment: Specimen Type: BLOOD SPECIMEN Ordering Facility: [facility] Address: [address] [place], [place] [address]Performed By: #### 87275-8 #### [facility] CLIA [id number] [address] [place] [address]WBB [Catalytic activity/Vol]83 U/BGwnkxp18-200TugdhzficOhio State Harding Hospital on above:Order Comment: Specimen Type: BLOOD SPECIMEN Ordering Facility: [facility] Address: [address] [place], [place] [address]Performed By: #### 25934-2 #### [facility] CLIA [id number] [address] [place], [place] [address]OXF [Catalytic activity/Vol]20 U/WQvujnr39-34OjzfswzcmOhio State Harding Hospital on above:Order Comment: Specimen Type: BLOOD SPECIMEN Ordering Facility: [facility] Address: [address] [place], [place] [address]Performed By: #### 61540-0 #### [facility] CLIA [id number] [address] [place], [place] [address]Gzukg gap [Moles/Vol]12 mmol/LNormal8-15[facility] on above:Order Comment: Specimen Type: BLOOD SPECIMEN Ordering Facility: [facility] Address: [address] [place], [place] [address]Performed By: #### 42622-0 #### [facility] CLIA [id number] [address] [place], [place] [address]FJR [Catalytic activity/Vol]19 U/OEpwolk13-28ShonvompxOhio State Harding Hospital on above:Order Comment: Specimen Type: BLOOD SPECIMEN Ordering Facility: [facility] Address: [address] [place], [place] [address]Performed By: #### 43093-0 #### [facility] CLIA [id number] [address] [place], [place] [address]Muauhclog [Mass/Vol]0.8 mg/dLNormal0.2-1.3CSt. Anthony's Hospital on above:Order Comment: Specimen Type: BLOOD SPECIMEN Ordering Facility: [facility] Address: [address] [place], [place] [address]Performed By: #### 17029-4 #### [facility] CLIA [id number] [address] [place], [place] [address]Dzftquj [Mass/Vol]10.0 mg/dLNormal8.5-10.2CSt. Anthony's Hospital on above:Order Comment: Specimen Type: BLOOD SPECIMEN Ordering Facility: [facility] Address: [address] [place], [place] [address]Performed By: #### 06026-4 #### [facility] CLIA [id number] [address] [place], [place] [address]Qvrgmuno [Moles/Vol]103 mmol/BIbitpp83-996RdkdugeayOhio State Harding Hospital on above:Order Comment: Specimen Type: BLOOD SPECIMEN Ordering Facility: [facility] Address: [address] [place] [address]Rlbincjdu By: #### 50666-0 #### [facility] CLIA [id number] [address] [place], [place] [address]VW1 [Moles/Vol]27 mmol/OWmjhik67-55IrhuevnegUc Medical Center Comment on above:Order Comment: Specimen Type: BLOOD SPECIMEN Ordering Facility: [facility] Address: [address] [place], [place] [address]Performed By: #### 39604-6 #### [facility] CLIA [id number] [address] [place] [address]Tmktwzwgkt [Mass/Vol]0.73 mg/dLNormal0.73-1.22[facility] on above:Order Comment: Specimen Type: BLOOD SPECIMEN Ordering Facility: [facility] Address: [address] [place], [place] [address]Performed By: #### 31690-5 #### [facility] CLIA [id number] [address] [place] [address]327gGOCte SerPlBld CKD-EPI 704239 mL/min/1.73m???Normal>=60 [facility] on above:Order Comment: Specimen Type: BLOOD SPECIMEN Ordering Facility: [facility] Address: [address] [place] [address]Xtwsjj Comment: Estimated Glomerular Filtration Rate (eGFR) is [...] not accurately reflect actual GFR.Performed By: #### 10650-6 #### [facility] CLIA [id number] [address] [place], [place] [address]Djivhtm [Mass/Vol]118 mg/gFOonn92-95QokqdsuuqUc Medical Center Comment on above:Order Comment: Specimen Type: BLOOD SPECIMEN Ordering Facility: [facility] Address: [address] [place], [place] [address]Result Comment: The [place] Diabetes Association (ADA) provides guidance for cutoff [...] Standards of Medical Care in Diabetes 2016, [place] Diabetes Association. Diabetes Care. 2016.39(Suppl 1).Performed By: #### 02910-9 #### [facility] CLIA [id number] [address] [place], [place] [address]Pyryajhno [Moles/Vol]4.7 mmol/LNormal3.7-5.1CLima City HospitalComment on above:Order Comment: Specimen Type: BLOOD SPECIMEN Ordering Facility: [facility] Address: [address] [place] [address]Ttjfhssfo By: #### 22251-7 #### [facility] CLIA [id number] [address] [place], [place] [address]Eqjmfoa [Mass/Vol]6.5 g/dLNormal6.3-8.0[facility] on above:Order Comment: Specimen Type: BLOOD SPECIMEN Ordering Facility: [facility] Address: [address] [place], [place] [address]Performed By: #### 31729-8 #### [facility] CLIA [id number] [address] [place], [place] [address]Jigwqr [Moles/Vol]142 mmol/MHggwyc654-122LdqrcuqioOhio State Harding Hospital on above:Order Comment: Specimen Type: BLOOD SPECIMEN Ordering Facility: [facility] Address: [address] [place], [place] [address]Performed By: #### 82148-9 #### [facility] CLIA [id number] [address] [place] [address]Fmvv nitrogen [Mass/Vol]11 mg/dLNormal9-24[facility] on above:Order Comment: Specimen Type: BLOOD SPECIMEN Ordering Facility: [facility] Address: [address] [place], [place] [address]Performed By: #### 10745-9 #### [facility] CLIA [id number] [address] [place] [address]BBP SerPl-aCncon 94-59-4500Ltmzncgefrjmyo (EPO) Qn15.5 mIU/mL Normal2.6-18.5CSt. Anthony's Hospital on above:Order Comment: Specimen Type: BLOOD SPECIMEN Ordering Facility: [facility] Address: [address] [place], [place] [address]Performed By: #### 2857-1 #### [facility] CLIA [id number] [address] [place], [place] [address]Ferritin SerPl-mCncon 05-15-2025 Ferritin [Mass/Vol]92.9 ng/zVPrnorm41.3-565.7CSt. Anthony's Hospital on above:Order Comment: Specimen Type: BLOOD SPECIMEN Ordering Facility: [facility] Address: [address] [place], [place] [address]Performed By: #### 86350-3 #### [facility] CLIA [id number] [address] [place] [address]Ymyvvj SerPl-mCncon 27-87-7079Djvvsa [Mass/Vol]ng/mLNormal>4.7 [facility] on above:Order Comment: Specimen Type: BLOOD SPECIMEN Ordering Facility: [facility] Address: [address] [place], [place] [address]Result Comment: A result of > 20 ng/mL is not necessarily indicative of a pathologic or treatable condition: it reflects a limitation of the test methodology. Assay reference range: 4.8 to 24.2 ng/mL. Suitable for detection of folate deficiency. Reference: Folate III (Folate III) [package insert V 1.0 Cypriot]. [employer], [place], [place]: May 2015.Performed By: #### 84389-9 #### [facility] CLIA [id number] [address] [place] [address]Jrzg and Iron binding capacity panelon 70-77-8619Vcmp [Mass/Vol]74 ug/fOVguimp73-361QcktjgepwOhio State Harding Hospital on above:Order Comment: Specimen Type: BLOOD SPECIMEN Ordering Facility: [facility] Address: [address] [place], [place] [address]Performed By: #### 2857-1 #### [facility] CLIA [id number] [address] [place] [address] [place] OF AMERICAIron binding capacity [Mass/Vol]416 ug/eKCves826-496PdpthzkttOhio State Harding Hospital on above:Order Comment: Specimen Type: BLOOD SPECIMEN Ordering Facility: [facility] Address: [address] [place], [place] [address]Performed By: #### 2857-1 #### [facility] CLIA [id number] [address] [place] [address] [place] OF AMERICAIron/TIBC [Molar ratio]17.8 %Normal 15.0-57.0[facility] on above:Order Comment: Specimen Type: BLOOD SPECIMEN Ordering Facility: [facility] Address: [address] [place], [place] [address]Performed By: #### 2857-1 #### [facility] CLIA [id number] [address] [place] [address] [place] AMERICAPSA SerPl-mCncon 63-67-8618Mmflonep specific Ag [Mass/Vol]0.39 ng/mLNormal<2.60[facility] on above:Order Comment: Specimen Type: BLOOD SPECIMEN Ordering Facility: [facility] Address: [address] [place], [place] [address]Result Comment: Total PSA test methodology used is the Electrochemiluminescence Immunoassay by [employer]. Total PSA values by differing methodologies cannot be interchanged. Performed By: #### 2857-1 #### [facility] CLIA [id number] [address] [place], [place] [address]Vit B12 [facility] 05-15-2025 Cobalamin (Vitamin B12) [Mass/Vol]440 pg/mTHsrkjh888-8600Gxrjtdjkw [facility]Com[facility] on above:Order Comment: Specimen Type: BLOOD SPECIMEN Ordering Facility: [facility] Address: [address] [place], [place] [address]Performed By: #### 48754-5 #### [facility] CLIA [id number] [address] [place] [address]Ogivxj Onlyon 06-91-4712Siitys [id number] Pablo Felix 1945 M Date Provider Department [facility] 04/04/2025 [id number], HISTORICAL CARD [facility] Family History Problem Relation Age of Onset Coronary artery disease Father Family Status - Relation Status Age at FatherNormalUniversity of [facility] MainlandAmbulatory Visit Summaryon 33-50-7904Ayxbykdept Visit SummaryAmbulatory Visit Summary PABLO FELIX :1945 [...] mg Tab) ipratropium nasal (ipratropium Nasal 0.06% Finderne) metformin (metformin 1000 mg oral tablet) metoprolol [...] AM EDT With: Where: [facility] [address] [place] [address]- Monday2025 11:15 AM EDT With: Anthony SCRUGGS MD Where: [facility] [address] [place] [address]- You Need to Schedule the Following Appointments Follow Up with Anthony SCRUGGS MD, URL When: Comments: 6 mos w/ PSA, Lupron Where: [address] [place] [address] Medications What How Much When Instructions Unchanged [...] concerns Unchanged ipratropium nasal (ipratropium Nasal 0.06% Finderne) Contact prescribing physician if questions or concerns [...] ??? Before radiation t (more content not included)...[facility] Office/Clinic Noteon 49-48-4720Tfpupva Office/Clinic NoteUrology Office/Clinic Note Chief Complaint 6 [...] Contact Information KAEL JAMES, Anthony Lee, URL [address] [place] [address] [place] [address] Additional Instructions: 6 mos w/ PSA, Lupron [...] 1 tab(s), Oral, Daily ipratropium Nasal 0.06% Finderne metformin 1000 mg oral tablet, Oral, BID [...] Household tobacco concerns: No., (more content not included)...[facility] EastComment on above:Result Comment: Electronically Signed By: Anthony SCRUGGS MD\.br\Date and Time Signed: 03/31/25 10:40 EDT\.br\Electronically Co-Signed By: Jeanine Crandall\.br\Date and Time Co-Signed: 03/31/25 10:35 EDTNo Panel InformationOrdered By: Outside Provider on 03-24-2025 Prostate Specific Antigen Screen0.42 ng/mL<=4.00[facility] DaytonBasophils Auto (Bld) [#/Vol]Ordered By: Anirudh Quiroz on 03-20-2025 Basophils (Bld) [#/Vol]0.0 10 3/uL0.0-0.1FSelect Medical TriHealth Rehabilitation Hospital Basophils/100 WBC Auto (Bld)Ordered By: Anirudh Quiroz on 03-20-2025 Basophils/100 WBC (Bld)0.5 %0.2-2.0[facility] DaytonCholesterol in LDL Calc [Mass/Vol]Ordered By: Anirudh Quiroz on 99-56-3668Xdcltxvkwih in LDL [Mass/Vol]66.6 mg/dLKettering Health DaytonComment on above:<100 mg/dl PHWJXDB156-637 mg/dl NEAR OR ABOVE RWVFHRS103-609 mg/dl BORDERLINE UDFY549-320 mg/dl HIGH>190 mg/dl VERY HIGHCholesterol in VLDL Calc [Mass/Vol] Ordered By: Anirudh Quiroz on 16-89-2044Ipvnmjgoweo in VLDL [Mass/Vol]23.4 mg/dL [facility] DaytonEosinophils/100 WBC Auto (Bld)Ordered By: Anirudh Quiroz on 93-02-2867Avudvzjgjjl/100 WBC (Bld)6.6 %0.9-7.0[facility] DaytonErythrocyte distribution width Auto (RBC) [Ratio]Ordered By: Anirudh Quiroz on 61-46-6067Wqqxgjhhmfo distribution width (RBC) [Ratio]12.6 %11.0-15.0[facility] DaytonGlobulin Calc (S) [Mass/Vol]Ordered By: Anirudh Quiroz on 95-24-0645Ccbfqarh (S) [Mass/Vol]3.3 g/dLKettering Health DaytonGlomerular filtration rate (GFR) estimation in non- AmericanOrdered By: Anirudh Quiroz on 56-97-2688QMX/1.73 sq M.predicted among non-blacks MDRD (S/P/Bld) [Vol rate/Area]mL/min/{1.73_m2}>=60 mL/min/1.73m 2FSelect Medical TriHealth Rehabilitation HospitalHematocrit Auto (Bld) [Volume fraction]Ordered By: Anirudh Quiroz on [id number] (Bld) [Volume fraction]33.8 %Low 42.0-54.0[facility] DaytonHemoglobin [Mass/volume] in Blood Ordered By: Anirudh Quiroz on [id number] (Bld) [Mass/Vol]11.4 g/dLLow 14.0-18.0[facility] DaytonLaboratory - Chemistry and Chemistry - challengeOrdered By: Anirudh Quiroz on [id number] [Mass/Vol]3.3 g/dLLow 3.4-5.0[facility] DaytonALP [Catalytic activity/Vol]71 U/L46-116 [facility] DaytonALT [Catalytic activity/Vol]28 U/L16-63 [facility] DaytonAST [Catalytic activity/Vol]17 U/L15-37 [facility] DaytonBilirubin [Mass/Vol]0.8 mg/dL0.2-1.0[facility] DaytonCalcium [Mass/Vol]8.9 mg/dL8.5-10.1FSelect Medical TriHealth Rehabilitation HospitalChloride [Moles/Vol]105 mmol/K42-663OciqmbhxhKettering Health DaytonCholesterol [Mass/Vol]133 mg/dL<=200[facility] Cholesterol in HDL [Mass/Vol]43 mg/vB88-97EcohkuhqvK[facility]tering Health [facility] Comment on above:> or =60 mg/dl - LOW CARDIOVASCULAR RISK<40 mg/dl - HIGH CARDIOVASCULAR RISKCO2 [Moles/Vol]26.6 mmol/L21.0-32.0[facility] DaytonCreatinine [Mass/Vol]0.81 mg/dL0.70-1.30[facility] GFR/1.73 sq M.predicted MDRD (S/P/Bld) [Vol rate/Area]mL/min/{1.73_m2}>=60 mL/min/1.73m 2FSelect Medical TriHealth Rehabilitation HospitalGlucose [Mass/Vol]116 mg/dLHigh 74-106[facility] DaytonPotassium [Moles/Vol]5.2 mmol/LHigh 3.5-5.1FSelect Medical TriHealth Rehabilitation HospitalProtein [Mass/Vol]6.6 g/dL6.4-8.2 [facility] Hospitalodium [Moles/Vol]140 mmol/I398-965ErfldtookKettering Health DaytonTriglyceride [Mass/Vol]117 mg/dL<=150[facility] DaytonTSH Qn1.719 m[IU]/L0.358-3.740[facility] Urea nitrogen [Mass/Vol]15.0 mg/dL7.0-18.0[facility] DaytonUrea nitrogen/Creatinine [Mass ratio]18.5 mg/mgK[facility]tering Health [facility] Laboratory - Hematology and Cell countsOrdered By: Anirudh Quiroz on 03-20-2025 Immature granulocytes/100 WBC (Bld)0.7 %High0.0-0.5FSelect Medical TriHealth Rehabilitation HospitalLeukocytes [#/volume] corrected for nucleated erythrocytes in Blood by Automated counOrdered By: Anirudh Quiroz on 91-79-8531EPR corrected for nucl RBC Auto (Bld) [#/Vol]5.6 10 3/uL4.0-11.0[facility] Lymphocytes Auto (Bld) [#/Vol]Ordered By: Anirudh Quiroz on 03-20-2025 Lymphocytes (Bld) [#/Vol]1.5 10 3/uL1.2-3.8[facility] Lymphocytes/100 WBC Auto (Bld)Ordered By: Anirudh Quiroz on 03-20-2025 Lymphocytes/100 WBC (Bld)26.7 %20.5-60.0[facility] CenterH Auto (RBC) [Entitic mass]Ordered By: Anirudh Quiroz on 28-68-1641ZDD (RBC) [Entitic mass]32.2 pg25.9-34.0[facility] DaytonMCHC Auto (RBC) [Mass/Vol]Ordered By: Anirudh Quiroz on 56-19-8846TFHE (RBC) [Mass/Vol]33.7 g/dL 29.9-35.2FSelect Medical TriHealth Rehabilitation HospitalMCV Auto (RBC) [Entitic vol]Ordered By: Anirudh Quiroz on 18-13-0195HFH (RBC) [Entitic vol]95.5 fKZehc42.0-94.0 [facility] DaytonMonocytes Auto (Bld) [#/Vol]Ordered By: Anirudh Quiroz on 84-40-5284Ukcoaqdqk (Bld) [#/Vol]0.5 10 3/uL0.3-0.8[facility] DaytonMonocytes/100 WBC Auto (Bld)Ordered By: Anirudh Quiroz on 82-96-1481Itojskkaj/100 WBC (Bld)9.6 %1.7-12.0[facility] Neutrophils Auto (Bld) [#/Vol]Ordered By: Anirudh Quiroz on 03-20-2025 Neutrophils (Bld) [#/Vol]3.1 10 3/uL1.4-6.5FSelect Medical TriHealth Rehabilitation Hospital Neutrophils/100 WBC Auto (Bld)Ordered By: Anirudh Quiroz on 03-20-2025 Neutrophils/100 WBC (Bld)55.9 %43.0-75.0[facility] DaytonNo Panel InformationOrdered By: Anirudh Quiroz on 66-89-2358Nnhdkfsyofs # (Auto)0.4 10 3/uL0.0-0.7FSelect Medical TriHealth Rehabilitation HospitalImmature Granulocyte # (Auto) 0.04 10 3/uLHigh0.00-0.03[facility] DaytonOffice Visiton 27-41-6502Rxfktw-up [id number] Pablo Felix 1945 M Date Provider Department Center 03/20/2025 Lakia-ANIRUDH QUIROZ CARD [facility] Family History Problem Relation Age of Onset Coronary artery disease Father Family Status - Relation Status Age at Father Level of Service:10780 [place] OFFICE/OUTPATIENT ESTABLISHED MOD MDM 30 MIN Reason for Visit and Comments: Coronary Artery Disease [187] - Denies chest pain and SOB. No recent testing. Valve Disorder [3372] - Denies lightheadedness and palpitations. Hypertension [336388] - Had labs in January 2025. Hyperlipidemia [182] - [facility].NormalUnParkview Health Bryan HospitalPlatelet mean volume Auto (Bld) [Entitic vol]Ordered By: Anirudh Quiroz on 58-55-9759Hwvmlgfp mean volume (Bld) [Entitic vol]10.4 fL9.5-13.5FSelect Medical TriHealth Rehabilitation HospitalPlatelets Auto (Bld) [#/Vol]Ordered By: Anirudh Quiroz on 1946Rxibbmbmd (Bld) [#/Vol]185 10 3/aF634-316HakudaonkKettering Health DaytonRBC Auto (Bld) [#/Vol] Ordered By: Anirudh Quiroz on 57-20-9945TKS (Bld) [#/Vol]3.54 10 6/uLLow 4.70-6.10[facility] Hospitalerum or plasma albumin/globulin mass ratioOrdered By: Anirudh Quiroz on 74-33-1733Izyubxj/Globulin [Mass ratio]1.0 {ratio}[facility] Hospitalerum or plasma anion gap determination Ordered By: Anirudh Quiroz on 47-31-6154Wkucq gap [Moles/Vol]13.6 mmol/L [facility] Hospitalerum or plasma total cholesterol/high density lipoprotein (HDL) cholesterol mass ratOrdered By: Anirudh Quiroz on 03-20-2025 Cholesterol.total/Cholesterol in HDL [Mass ratio]3.1 {ratio}[facility] DaytonComment on above:3.3 - 4.4 LOW RISK4.4 - 7.1 AVERAGE RISK7.1 - 11.0 MODERATE RISK>11.0 HIGH RISKNo Panel Informationon 43-48-1049UWXK HealthcareCNOVSPon 90-56-4217HUNFNXLdlpa (SP) Office ([place]) PABLO FELIX ([id number]) 1945 M Date Time Provider Department 02/20/25 10:20 AM SAUL TRACEY During your visit today, we recorded the following information about you: Temperature Pulse Respiration Blood pressure 97.6 degrees 60/minute 16/minute 130/84 Weight 91.4 kg Saul Tracey MD 02/20/2025 10:48 AM Signed NAME: Pablo Felix CLINIC NO.: [id number] DATE OF SERVICE: February 20, 2025 (Denice) Some elements in this clinic note that are critical to medical decision making have been carefully reviewed and included from a prior clinic note dated: 11/07/2024 (Dheeraj) Referring Provider: RADHA Additional Clinicians involved in Pablo Felix's care: Dr. Jamar Fall, Dr. Anthony Scruggs, Dr. Khan, [facility] Cardiology DIAGNOSIS: Metastatic prostate cancer CASE SUMMARY / ASSESSMENT: 80 year old man with. 1. Metastatic prostate cancer (HCC) - ICD9: 185, ICD10: C61 (primary diagnosis) The patient was diagnosed with early-stage high-grade prostate cancer in June 2014 (TRUS biopsy 07/02/2014). He underwent a radical prostatectomy on 11/05/2014. Pathology consistent with stage IIIC (pT2b, N0, M0), Lucreica 5+4 equal 9. 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 Stable on current medications. Continue per PCP/cardiology. [...] function is normal. Ane (more content not included)...NormalUc Medical CenterBasophils Auto (Bld) [#/Vol]Ordered By: Marco A Esqueda on 16-18-6690Pnfvzwcga (Bld) [#/Vol]0.03 10*3/uL<0.11[facility] DaytonBasophils/100 WBC Auto (Bld)Ordered By: Marco A Esqueda on 23-64-0343Hxccsbxvy/100 WBC (Bld)0.4 %[facility] DaytonBlood manual differential comment interpretation narrativeOrdered By: Marco A Esqueda on 13-86-1292[place] differential comment [place] (Bld) [Interp]AutoKettering Health DaytonCBC W Auto Differential panel (Bld)on 47-57-2925Hytwmpfex (Bld) [#/Vol]0.03 10*3/uLNormal<0.11CSt. Anthony's Hospital on above:Order Comment: Specimen Type: BLOOD SPECIMEN Ordering Facility: [facility] Address: [address] [place], [place] [address]Performed By: #### 2857-1 #### [facility] CLIA [id number] [address] [place] [address] [place] AMERICABasophils/100 WBC (Bld)0.4 %Normal [facility] on above:Order Comment: Specimen Type: BLOOD SPECIMEN Ordering Facility: [facility] Address: [address] [place], [place] [address]Performed By: #### 2857-1 #### [facility] CLIA [id number] [address] [place] [address] [place] AMERICADifferential cell count method Nom (Bld)AutoNormalCSt. Anthony's Hospital on above:Order Comment: Specimen Type: BLOOD SPECIMEN Ordering Facility: [facility] Address: [address] [place], [place] [address]Performed By: #### 2857-1 #### [facility] CLIA [id number] [address] [place] [address] [place] AMERICAEosinophils (Bld) [#/Vol]0.53 10*3/uLHigh<0.46[facility] on above:Order Comment: Specimen Type: BLOOD SPECIMEN Ordering Facility: [facility] Address: [address] [place], [place] [address]Performed By: #### 2857-1 #### [facility] CLIA [id number] [address] [place] [address] [place] AMERICAEosinophils/100 WBC (Bld)7.5 %Normal [facility] on above:Order Comment: Specimen Type: BLOOD SPECIMEN Ordering Facility: [facility] Address: [address] [place], [place] [address]Performed By: #### 2857-1 #### [facility] CLIA [id number] [address] [place] [address] [place] AMERICAErythrocyte distribution width (RBC) [Ratio]12.7 %Zygwar78.5-15.0[facility] on above:Order Comment: Specimen Type: BLOOD SPECIMEN Ordering Facility: [facility] Address: [address] [place], [place] [address]Performed By: #### 2857-1 #### [facility] CLIA [id number] [address] [place] [address] [place] AMERICAHematocrit (Bld) [Volume fraction] 35.3 %Low39.0-51.0[facility] on above:Order Comment: Specimen Type: BLOOD SPECIMEN Ordering Facility: [facility] Address: [address] [place], [place] [address]Performed By: #### 2857-1 #### [facility] CLIA [id number] [address] [place] [address] [place] AMERICAHemoglobin (Bld) [Mass/Vol]12.0 g/dL Low13.0-17.0[facility] on above:Order Comment: Specimen Type: BLOOD SPECIMEN Ordering Facility: [facility] Address: [address] [place], [place] [address]Performed By: #### 2857-1 #### [facility] CLIA [id number] [address] [place] [address] [place] AMERICAImmature granulocytes (Bld) [#/Vol] 0.06 10*3/uLNormal<0.10[facility] on above:Order Comment: Specimen Type: BLOOD SPECIMEN Ordering Facility: [facility] Address: [address] [place], [place] [address]Performed By: #### 2857-1 #### [facility] CLIA [id number] [address] [place] [address] [place] AMERICAImmature granulocytes/100 WBC (Bld) 0.8 %NormalOhio State Harding Hospital on above:Order Comment: Specimen Type: BLOOD SPECIMEN Ordering Facility: [facility] Address: [address] [place], [place] [address]Performed By: #### 2857-1 #### [facility] CLIA [id number] [address] [place] [address] [place] AMERICALymphocytes (Bld) [#/Vol]2.09 10*3/uLNormal1.00-4.00[facility] on above:Order Comment: Specimen Type: BLOOD SPECIMEN Ordering Facility: [facility] Address: [address] [place], [place] [address]Performed By: #### 2857-1 #### [facility] CLIA [id number] [address] [place] [address] [place] AMERICALymphocytes/100 WBC (Bld)29.5 % NormalOhio State Harding Hospital on above:Order Comment: Specimen Type: BLOOD SPECIMEN Ordering Facility: [facility] Address: [address] [place], [place] [address]Performed By: #### 2857-1 #### [facility] CLIA [id number] [address] [place] [address] [place] AMERICAMCH (RBC) [Entitic mass]32.5 pg Bvzklx60.0-34.0[facility] on above:Order Comment: Specimen Type: BLOOD SPECIMEN Ordering Facility: [facility] Address: [address] [place], [place] [address]Performed By: #### 2857-1 #### [facility] CLIA [id number] [address] [place] [address] [facility] HOSPITALMCHC (RBC) [Mass/Vol]34.0 g/dLNormal 30.5-36.0[facility] on above:Order Comment: Specimen Type: BLOOD SPECIMEN Ordering Facility: [facility] Address: [address] [place], [place] [address]Performed By: #### 2857-1 #### [facility] CLIA [id number] [address] [place], [place] [address]V (RBC) [Entitic vol]95.7 fLNormal 80.0-100.0[facility] on above:Order Comment: Specimen Type: BLOOD SPECIMEN Ordering Facility: [facility] Address: [address] [place], [place] [address]Performed By: #### 2857-1 #### [facility] CLIA [id number] [address] [place] [address] [place] AMERICAMonocytes (Bld) [#/Vol]0.68 10*3/uL Normal<0.87[facility] on above:Order Comment: Specimen Type: BLOOD SPECIMEN Ordering Facility: [facility] Address: [address] [place], [place] [address]Performed By: #### 2857-1 #### [facility] CLIA [id number] [address] [place] [address] [place] AMERICAMonocytes/100 WBC (Bld)9.6 %Normal [facility] on above:Order Comment: Specimen Type: BLOOD SPECIMEN Ordering Facility: [facility] Address: [address] [place], [place] [address]Performed By: #### 2857-1 #### [facility] CLIA [id number] [address] [place] [address] [place] AMERICANeutrophils (Bld) [#/Vol]3.70 10*3/uLNormal1.45-7.50[facility] on above:Order Comment: Specimen Type: BLOOD SPECIMEN Ordering Facility: [facility] Address: [address] [place], [place] [address]Performed By: #### 2857-1 #### [facility] CLIA [id number] [address] [place] [address] [place] AMERICANeutrophils/100 WBC (Bld)52.2 % NormalOhio State Harding Hospital on above:Order Comment: Specimen Type: BLOOD SPECIMEN Ordering Facility: [facility] Address: [address] [place], [place] [address]Performed By: #### 2857-1 #### [facility] CLIA [id number] [address] [place] [address] [place] AMERICANucleated RBC (Bld) [#/Vol]10*3/uL Normal<0.01[facility] on above:Order Comment: Specimen Type: BLOOD SPECIMEN Ordering Facility: [facility] Address: [address] [place], [place] [address]Performed By: #### 2857-1 #### [facility] CLIA [id number] [address] [place] [address] [place] AMERICANucleated RBC/100 WBC (Bld) [Ratio] 0.0 /100 WBCNormalCSt. Anthony's Hospital on above:Order Comment: Specimen Type: BLOOD SPECIMEN Ordering Facility: [facility] Address: [address] [place], [place] [address]Performed By: #### 2857-1 #### [facility] CLIA [id number] [address] [place] [address] [place] AMERICAPlatelet mean volume (Bld) [Entitic vol]10.1 fLNormal9.0-12.7CSt. Anthony's Hospital on above:Order Comment: Specimen Type: BLOOD SPECIMEN Ordering Facility: [facility] Address: [address] [place], [place] [address]Performed By: #### 2857-1 #### [facility] CLIA [id number] [address] [place] [address] [place] AMERICAPlatelets (Bld) [#/Vol]204 10*3/uL Necmti290-435InjhrmmpjOhio State Harding Hospital on above:Order Comment: Specimen Type: BLOOD SPECIMEN Ordering Facility: [facility] Address: [address] [place], [place] [address]Performed By: #### 2857-1 #### [facility] CLIA [id number] [address] [place] [address] [place] AMERICARBC (Bld) [#/Vol]3.69 10*6/uLLow 4.20-6.00[facility] on above:Order Comment: Specimen Type: BLOOD SPECIMEN Ordering Facility: [facility] Address: [address] [place], [place] [address]Performed By: #### 2857-1 #### [facility] CLIA [id number] [address] [place] [address] [place] [address] STATES OF AMERICAWBC (Bld) [#/Vol]7.09 10*3/uLNormal 3.70-11.00[facility] on above:Order Comment: Specimen Type: BLOOD SPECIMEN Ordering Facility: [facility] Address: [address] [place], [place] [address]Performed By: #### 2857-1 #### [facility] CLIA [id number] [address] [place] [address] [place] AMERICAComprehensive metabolic 2000 panelon 96-54-5375Dkxckbe [Mass/Vol]4.2 g/dLNormal3.9-4.9CL[facility] Comment on above:Order Comment: Specimen Type: BLOOD SPECIMEN Ordering Facility: [facility] Address: [address] [place], [place] [address]Performed By: #### 2857-1 #### [facility] CLIA [id number] [address] [place] [address] [place] AMERICAALP [Catalytic activity/Vol]73 U/L Vrtdjl90-580QwfvrobneOhio State Harding Hospital on above:Order Comment: Specimen Type: BLOOD SPECIMEN Ordering Facility: [facility] Address: [address] [place], [place] [address]Performed By: #### 2857-1 #### [facility] CLIA [id number] [address] [place] [address] [place] AMERICAALT [Catalytic activity/Vol]16 U/L Mqwdnv61-23XjizfjnyeOhio State Harding Hospital on above:Order Comment: Specimen Type: BLOOD SPECIMEN Ordering Facility: [facility] Address: [address] [place], [place] [address]Performed By: #### 2857-1 #### [facility] CLIA [id number] [address] [place] [address] [place] AMERICAAnion gap [Moles/Vol]10 mmol/LNormal 8-15[facility] on above:Order Comment: Specimen Type: BLOOD SPECIMEN Ordering Facility: [facility] Address: [address] [place], [place] [address]Performed By: #### 2857-1 #### [facility] CLIA [id number] [address] [place] [address] [place] AMERICAAST [Catalytic activity/Vol]17 U/L Ppctxd63-68VqbgiueiiOhio State Harding Hospital on above:Order Comment: Specimen Type: BLOOD SPECIMEN Ordering Facility: [facility] Address: [address] [place], [place] [address]Performed By: #### 2857-1 #### [facility] CLIA [id number] [address] [place] [address] [place] AMERICABilirubin [Mass/Vol]0.6 mg/dLNormal 0.2-1.3CSt. Anthony's Hospital on above:Order Comment: Specimen Type: BLOOD SPECIMEN Ordering Facility: [facility] Address: [address] [place], [place] [address]Performed By: #### 2857-1 #### [facility] CLIA [id number] [address] [place] [address] [place] AMERICACalcium [Mass/Vol]9.3 mg/dLNormal 8.5-10.2CSt. Anthony's Hospital on above:Order Comment: Specimen Type: BLOOD SPECIMEN Ordering Facility: [facility] Address: [address] [place], [place] [address]Performed By: #### 2857-1 #### [facility] CLIA [id number] [address] [place] [address] [place] AMERICAChloride [Moles/Vol]101 mmol/LNormal 98-107[facility] on above:Order Comment: Specimen Type: BLOOD SPECIMEN Ordering Facility: [facility] Address: [address] [place], [place] [address]Performed By: #### 2857-1 #### [facility] CLIA [id number] [address] [place] [address] [place] AMERICACO2 [Moles/Vol]25 mmol/IMsmlhq32-91 [facility] on above:Order Comment: Specimen Type: BLOOD SPECIMEN Ordering Facility: [facility] Address: [address] [place], [place] [address]Performed By: #### 2857-1 #### [facility] CLIA [id number] [address] [place] [address] [place] AMERICACreatinine [Mass/Vol]0.68 mg/dLLow 0.73-1.22[facility] on above:Order Comment: Specimen Type: BLOOD SPECIMEN Ordering Facility: [facility] Address: [address] [place], [place] [address]Performed By: #### 2857-1 #### [facility] CLIA [id number] [address] [place] [address] [place] AMERICAeGFRcr SerPlBld CKD-EPI 106145 mL/min/1.73m???Normal>=60[facility] on above:Order Comment: Specimen Type: BLOOD SPECIMEN Ordering Facility: [facility] Address: [address] [place], [place] [address]Result Comment: Estimated Glomerular Filtration Rate (eGFR) is [...] reflect actual GFR.Performed By: #### 2857-1 #### [facility] CLIA [id number] [address] [place] [address] [place] AMERICAGlucose [Mass/Vol]122 mg/wWHmnk97-11 [facility] on above:Order Comment: Specimen Type: BLOOD SPECIMEN Ordering Facility: [facility] Address: [address] [place], [place] [address]Result Comment: The [place] Diabetes Association (ADA) provides guidance for cutoff [...] Standards of Medical Care in Diabetes 2016, [place] [employer]. Diabetes Care. 2016.39(Suppl 1).Performed By: #### 2857-1 #### [facility] CLIA [id number] [address] [place] [address] [place] AMERICAPotassium [Moles/Vol]4.5 mmol/L Normal3.7-5.1CSt. Anthony's Hospital on above:Order Comment: Specimen Type: BLOOD SPECIMEN Ordering Facility: [facility] Address: [address] [place], [place] [address] [id number] By: #### 2857-1 #### [facility] CLIA [id number] [address] [place] [address] [place] AMERICAProtein [Mass/Vol]6.4 g/dLNormal 6.3-8.0[facility] on above:Order Comment: Specimen Type: BLOOD SPECIMEN Ordering Facility: [facility] Address: [address] [place], [place] [address]Performed By: #### 2857-1 #### [facility] CLIA [id number] [address] [place] [address] [place] AMERICASodium [Moles/Vol]136 mmol/LNormal 136-144[facility] on above:Order Comment: Specimen Type: BLOOD SPECIMEN Ordering Facility: [facility] Address: [address] [place], [place] [address]Performed By: #### 2857-1 #### [facility] CLIA [id number] [address] [place] [address] [place] AMERICAUrea nitrogen [Mass/Vol]14 mg/dL Normal9-24[facility] on above:Order Comment: Specimen Type: BLOOD SPECIMEN Ordering Facility: [facility] Address: [address] [place], [place] [address]Performed By: #### 2857-1 #### [facility] CLIA [id number] [address] [place] [address] [place] AMERICAEosinophils/100 WBC Auto (Bld) Ordered By: Marco A Esqueda on 74-00-3419Qdpaenxmymo/100 WBC (Bld)7.5 %[facility] DaytonErythrocyte distribution width Auto (RBC) [Ratio]Ordered By: Marco A Esqueda on 88-17-5484Idxjefvqqey distribution width (RBC) [Ratio]12.7 % 11.5-15.0[facility] DaytonHematocrit Auto (Bld) [Volume fraction]Ordered By: Marco A Esqueda on 48-96-4616Liamjoophn (Bld) [Volume fraction]35.3 %Low39.0-51.0[facility] DaytonHemoglobin [Mass/volume] in BloodOrdered By: Marco A Esqueda on 49-14-9072Fgjponbgis (Bld) [Mass/Vol]12.0 g/dLLow13.0-17.0[facility] DaytonLaboratory - Hematology and Cell countsOrdered By: Marco A Esqueda on 38-94-8992Tqqzdlqlojt (Bld) [#/Vol]0.53 10*3/uLHigh<0.46[facility] DaytonImmature granulocytes (Bld) [#/Vol]0.06 10*3/uL<0.10[facility] Immature granulocytes/100 WBC (Bld)0.8 %[facility] Leukocytes [#/volume] corrected for nucleated erythrocytes in Blood by Automated counOrdered By: Marco A Esqueda on 58-72-5145HRV corrected for nucl RBC Auto (Bld) [#/Vol]7.09 k/uL3.70-11.00[facility] DaytonLymphocytes Auto (Bld) [#/Vol]Ordered By: Marco A Esqueda on 24-50-2181Rdqpygfzyqx (Bld) [#/Vol]2.09 10*3/uL1.00-4.00[facility] DaytonLymphocytes/100 WBC Auto (Bld) Ordered By: Marco A Esqueda on 41-10-7450Aypkjjzpcqv/100 WBC (Bld)29.5 %[facility] Auto (RBC) [Entitic mass]Ordered By: Marco A Esqueda on 62-55-0941GNC (RBC) [Entitic mass]32.5 pg26.0-34.0[facility] DaytonMCHC Auto (RBC) [Mass/Vol]Ordered By: Marco A Esqueda on 34-86-3227XBFY (RBC) [Mass/Vol]34.0 g/dL30.5-36.0[facility] DaytonMCV Auto (RBC) [Entitic vol]Ordered By: Marco A Esqueda on 10-27-5450IXM (RBC) [Entitic vol]95.7 fL80.0-100.0[facility] DaytonMonocytes Auto (Bld) [#/Vol]Ordered By: Marco A Esqueda on 34-51-5044Dgykpgffj (Bld) [#/Vol]0.68 10*3/uL<0.87[facility] DaytonMonocytes/100 WBC Auto (Bld)Ordered By: Marco A Esqueda on 08-78-0020Zddkllkaq/100 WBC (Bld)9.6 %[facility] Neutrophils Auto (Bld) [#/Vol]Ordered By: Marco A Esqueda on 44-78-6470Gcrvdqrvyji (Bld) [#/Vol]3.70 10*3/uL1.45-7.50[facility] Neutrophils/100 WBC Auto (Bld)Ordered By: Marco A Esqueda on 2025 Neutrophils/100 WBC (Bld)52.2 %[facility] DaytonNo Panel InformationOrdered By: Marco A Esqueda on 13-04-8515Ecfhmvjv Specific Antigen0.26 ng/mL<2.60[facility] DaytonComment on above:Total PSA test methodology used is the Electrochemiluminescence Immunoassay by [employer]. Total PSA values by differing methodologies cannot be interchanged. Nucleated RBC Auto (Bld) [#/Vol]Ordered By: Marco A Esqueda on 93-10-7791Vxfdsokgq RBC (Bld) [#/Vol]10*3/uL<0.01[facility] DaytonNucleated erythrocytes [Presence] in Blood by Automated countOrdered By: Marco A Esqueda on 92-51-7492Kwxryhzkd RBC Auto Ql (Bld)0.0 /100{WBC}[facility] DaytonPSA SerPl-mCncon 71-54-1811Lkzipjoj specific Ag [Mass/Vol]0.26 ng/mLNormal <2.60[facility]c Medical CenterComment on above:Order Comment: Specimen Type: BLOOD SPECIMEN Ordering Facility: [facility] Address: [address] [place], [place] [address]Result Comment: Total PSA test methodology used is the Electrochemiluminescence Immunoassay by [employer]. Total PSA values by differing methodologies cannot be interchanged. Performed By: #### 16814-6 #### [facility] CLIA [id number] [address] [place] [address] 27508Opfsrawv mean volume Auto (Bld) [Entitic vol]Ordered By: Marco A Esqueda on 36-85-2879Pvwkltox mean volume (Bld) [Entitic vol]10.1 fL9.0-12.7 [facility] DaytonPlatelets Auto (Bld) [#/Vol]Ordered By: Marco A Esqueda on 54-58-0967Ftiuxsywr (Bld) [#/Vol]204 10*3/pI519-587RdlwhpbjcKettering Health DaytonRBC Auto (Bld) [#/Vol]Ordered By: Marco A Esqueda on 28-04-1541XCI (Bld) [#/Vol]3.69 10*6/uLLow4.20-6.00[facility] DaytonCNOVSPon 23-86-0886SKAMMSYfxgd (SP) Office ([place]) PABLO FELIX ([id number]) 1945 M Date Time Provider Department 11/07/24 [...] OTHER PHYSICIANS: Dr. Anthony Scruggs, Dr. Khan, [facility] Cardiology Portions of this encounter note have [...] mg 24 hr tablet Take by mouth. Lmesoczszpatn-Jesqpmyu-Ntstjr (MULTIVITAMIN 50 PLUS) tab Take 1 tablet [...] Radical retropubic prostatectomy and bilateral pelvic lymphadenectomy ([facility]) Poorly differentiated prostatic adenocarcinoma of left prostate. Left base margin positive for neoplasm. Seminal vesicles with no diagnostic abnormality. 2 resected lymph nodes negative for neoplasm. LABS: Hemoglobin (g/dL) Date Value 10/31/2024 12.4 05/08/2018 12.8 Hem (more content not included)...NormalKindred Healthcare W Auto Differential panel (Bld)on 89-11-7723Kbbirlvdf (Bld) [#/Vol]0.05 10*3/uLNormal <0.11CLima City HospitalComment on above:Order Comment: Specimen Type: BLOOD SPECIMEN Ordering Facility: [facility] Address: [address] [place], [place] [address]Snqpmizxl By: #### 56129-8 #### [facility] CLIA [id number] [address] [place] [address] 14501Ojvpvpvme/100 WBC (Bld)0.7 %[facility] Comment on above:Order Comment: Specimen Type: BLOOD SPECIMEN Ordering Facility: [facility] Address: [address] [place], [place] [address]Bbcmuemwc By: #### 76044-0 #### [facility] CLIA [id number] [address] [place], [place] [address]Chggfgcirfig cell count method Nom (Bld)AutoNormalClevelHolzer Medical Center – Jackson on above:Order Comment: Specimen Type: BLOOD SPECIMEN Ordering Facility: [facility] Address: [address] [place], [place] [address]Performed By: #### 82250-8 #### [facility] CLIA [id number] [address] [place] [address] 65926Lsfmsfxlmrx (Bld) [#/Vol]0.51 10*3/uLHigh<0.46[facility] on above:Order Comment: Specimen Type: BLOOD SPECIMEN Ordering Facility: [facility] Address: [address] [place], [place] [address]Performed By: #### 51329-1 #### [facility] CLIA [id number] [address] [place] [address] 84185Kurdizfwmgd/100 WBC (Bld)7.3 %NormalUc Medical Center Comment on above:Order Comment: Specimen Type: BLOOD SPECIMEN Ordering Facility: [facility] Address: [address] [place], [place] [address]Performed By: #### 74186-9 #### [facility] CLIA [id number] [address] [place] [address] 38571Gkebgrxnxfy distribution width (RBC) [Ratio]12.9 %Normal 11.5-15.0[facility] on above:Order Comment: Specimen Type: BLOOD SPECIMEN Ordering Facility: [facility] Address: [address] [place], [place] [address]Performed By: #### 46315-6 #### [facility] CLIA [id number] [address] [place] [address] 16999Kgfwfuzrdr (Bld) [Volume fraction]36.0 %Low39.0-51.0[facility] on above:Order Comment: Specimen Type: BLOOD SPECIMEN Ordering Facility: [facility] Address: [address] [place], [place] [address]Performed By: #### 22493-9 #### [facility] CLIA [id number] [address] [place] [address] 82568Mwwpgefwxv (Bld) [Mass/Vol]12.4 g/dLLow13.0-17.0[facility] on above:Order Comment: Specimen Type: BLOOD SPECIMEN Ordering Facility: [facility] Address: [address] [place], [place] [address]Performed By: #### 22557-6 #### [facility] CLIA [id number] [address] [place] [address] 60671Abpwaoaa granulocytes (Bld) [#/Vol]0.04 10*3/uLNormal<0.10 [facility] on above:Order Comment: Specimen Type: BLOOD SPECIMEN Ordering Facility: [facility] Address: [address] [place], [place] [address]Performed By: #### 90116-7 #### [facility] CLIA [id number] [address] [place] [address] 78943Gbfwurxw granulocytes/100 WBC (Bld)0.6 %NormalOhio State Harding Hospital on above:Order Comment: Specimen Type: BLOOD SPECIMEN Ordering Facility: [facility] Address: [address] [place], [place] [address]Performed By: #### 64023-4 #### [facility] CLIA [id number] [address] [place] [address] 51635Rmrisptrxkb (Bld) [#/Vol]1.80 10*3/uLNormal1.00-4.00[facility] on above:Order Comment: Specimen Type: BLOOD SPECIMEN Ordering Facility: [facility] Address: [address] [place], [place] [address]Performed By: #### 24490-9 #### [facility] CLIA [id number] [address] [place] [address] 09675Jneavvonnru/100 WBC (Bld)25.8 %NormalOhio State Harding Hospital on above:Order Comment: Specimen Type: BLOOD SPECIMEN Ordering Facility: [facility] Address: [address] [place], [place] [address]Performed By: #### 93968-6 #### [facility] CLIA [id number] [address] [place] [address] 25651PFC (RBC) [Entitic mass]32.2 owJjomww72.0-34.0[facility] on above:Order Comment: Specimen Type: BLOOD SPECIMEN Ordering Facility: [facility] Address: [address] [place], [place] [address]Performed By: #### 80999-2 #### [facility] CLIA [id number] [address] [place] [address] 08901DAMN (RBC) [Mass/Vol]34.4 g/xNTksvwm02.5-36.0[facility] on above:Order Comment: Specimen Type: BLOOD SPECIMEN Ordering Facility: [facility] Address: [address] [place], [place] [address]Performed By: #### 77977-3 #### [facility] CLIA [id number] [address] [place] [address] 68002SBR (RBC) [Entitic vol]93.5 uQLotesg20.0-100.0[facility] on above:Order Comment: Specimen Type: BLOOD SPECIMEN Ordering Facility: [facility] Address: [address] [place], [place] [address]Performed By: #### 75924-4 #### [facility] CLIA [id number] [address] [place] [address] 17024Aszjajydh (Bld) [#/Vol]0.69 10*3/uLNormal<0.87[facility] on above:Order Comment: Specimen Type: BLOOD SPECIMEN Ordering Facility: [facility] Address: [address] [place], [place] [address]Performed By: #### 43738-9 #### [facility] CLIA [id number] [address] [place] [address] 09701Ffbvwrxed/100 WBC (Bld)9.9 %NormalUc Medical Center Comment on above:Order Comment: Specimen Type: BLOOD SPECIMEN Ordering Facility: [facility] Address: [address] [place], [place] [address]Performed By: #### 18559-0 #### [facility] CLIA [id number] [address] [place] [address] 04456Qfqdgjqimpi (Bld) [#/Vol]3.90 10*3/uLNormal1.45-7.50[facility] on above:Order Comment: Specimen Type: BLOOD SPECIMEN Ordering Facility: [facility] Address: [address] [place], [place] [address]Performed By: #### 94656-4 #### [facility] CLIA [id number] [address] [place] [address] 87641Ndslqpkzgbm/100 WBC (Bld)55.7 %NormalUc Medical CenterComment on above:Order Comment: Specimen Type: BLOOD SPECIMEN Ordering Facility: [facility] Address: [address] [place], [place] [address]Performed By: #### 73666-7 #### [facility] CLIA [id number] [address] [place] [address] 85165Spbbtawkx RBC (Bld) [#/Vol]10*3/uLNormal<0.01[facility] on above:Order Comment: Specimen Type: BLOOD SPECIMEN Ordering Facility: [facility] Address: [address] [place], [place] [address]Performed By: #### 81905-7 #### [facility] CLIA [id number] [address] [place] [address] 40200Xilrcesap RBC/100 WBC (Bld) [Ratio]0.0 /100 WBCNormalCSt. Anthony's Hospital on above:Order Comment: Specimen Type: BLOOD SPECIMEN Ordering Facility: [facility] Address: [address] [place], [place] [address]Performed By: #### 38119-8 #### [facility] CLIA [id number] [address] [place] [address] 49391Kxbdhijg mean volume (Bld) [Entitic vol]9.8 fLNormal9.0-12.7 [facility] on above:Order Comment: Specimen Type: BLOOD SPECIMEN Ordering Facility: [facility] Address: [address] [place], [place] [address]Performed By: #### 25601-1 #### [facility] CLIA [id number] [address] [place] [address] 50340Yjrrfqeku (Bld) [#/Vol]204 10*3/lJQxqiht718-288UnhswoycbOhio State Harding Hospital on above:Order Comment: Specimen Type: BLOOD SPECIMEN Ordering Facility: [facility] Address: [address] [place], [place] [address]Performed By: #### 95167-8 #### [facility] CLIA [id number] [address] [place] [address] 80540KEL (Bld) [#/Vol]3.85 10*6/uLLow4.20-6.00[facility] on above:Order Comment: Specimen Type: BLOOD SPECIMEN Ordering Facility: [facility] Address: [address] [place], [place] [address]Performed By: #### 44542-2 #### [facility] CLIA [id number] [address] [place] [address] 25798LXU (Bld) [#/Vol]6.99 10*3/uLNormal3.70-11.00[facility] on above:Order Comment: Specimen Type: BLOOD SPECIMEN Ordering Facility: [facility] Address: [address] [place], [place] [address]Performed By: #### 28810-9 #### [facility] CLIA [id number] [address] [place] [address] 64836Slvpvlgcsqtst metabolic 2000 panelon 01-70-7968Veqpvtr [Mass/Vol]4.1 g/dLNormal3.9-4.9CSt. Anthony's Hospital on above:Order Comment: Specimen Type: BLOOD SPECIMEN Ordering Facility: [facility] Address: [address] [place], [place] [address]Performed By: #### 2857-1 #### [facility] CLIA [id number] [address] [place] [address] [place] AMERICAALP [Catalytic activity/Vol]84 U/L Xvmeea90-004XlkbkgxplOhio State Harding Hospital on above:Order Comment: Specimen Type: BLOOD SPECIMEN Ordering Facility: [facility] Address: [address] [place], [place] [address]Performed By: #### 2857-1 #### [facility] CLIA [id number] [address] [place] [address] [place] AMERICAALT [Catalytic activity/Vol]18 U/L Vmfqyk76-39TbfnkbrxnOhio State Harding Hospital on above:Order Comment: Specimen Type: BLOOD SPECIMEN Ordering Facility: [facility] Address: [address] [place], [place] [address]Performed By: #### 2857-1 #### [facility] CLIA [id number] [address] [place] [address] [place] AMERICAAnion gap [Moles/Vol]12 mmol/LNormal 8-15[facility] on above:Order Comment: Specimen Type: BLOOD SPECIMEN Ordering Facility: [facility] Address: [address] [place], [place] [address]Performed By: #### 2857-1 #### [facility] CLIA [id number] [address] [place] [address] [place] AMERICAAST [Catalytic activity/Vol]18 U/L Xezheu47-41UtrmfzbwwOhio State Harding Hospital on above:Order Comment: Specimen Type: BLOOD SPECIMEN Ordering Facility: [facility] Address: [address] [place], [place] [address]Performed By: #### 2857-1 #### [facility] CLIA [id number] [address] [place] [address] [place] AMERICABilirubin [Mass/Vol]0.5 mg/dLNormal 0.2-1.3CSt. Anthony's Hospital on above:Order Comment: Specimen Type: BLOOD SPECIMEN Ordering Facility: [facility] Address: [address] [place], [place] [address]Performed By: #### 2857-1 #### [facility] CLIA [id number] [address] [place] [address] [place] AMERICACalcium [Mass/Vol]10.1 mg/dLNormal 8.5-10.2CSt. Anthony's Hospital on above:Order Comment: Specimen Type: BLOOD SPECIMEN Ordering Facility: [facility] Address: [address] [place], [place] [address]Performed By: #### 2857-1 #### [facility] CLIA [id number] [address] [place] [address] [place] AMERICAChloride [Moles/Vol]101 mmol/LNormal 98-107[facility] on above:Order Comment: Specimen Type: BLOOD SPECIMEN Ordering Facility: [facility] Address: [address] [place], [place] [address]Performed By: #### 2857-1 #### [facility] CLIA [id number] [address] [place] [address] [place] AMERICACO2 [Moles/Vol]24 mmol/GGakdpa74-52 [facility] on above:Order Comment: Specimen Type: BLOOD SPECIMEN Ordering Facility: [facility] Address: [address] [place], [place] [address]Performed By: #### 2857-1 #### [facility] CLIA [id number] [address] [place] [address] [place] AMERICACreatinine [Mass/Vol]0.88 mg/dL Normal0.73-1.22[facility] on above:Order Comment: Specimen Type: BLOOD SPECIMEN Ordering Facility: [facility] Address: [address] [place], [place] [address]Performed By: #### 2857-1 #### [facility] CLIA [id number] [address] [place] [address] [place] AMERICACreatinine and Glomerular filtration rate.predicted panel (S/P/Bld)88 mL/min/1.73m???Normal>=60[facility] on above:Order Comment: Specimen Type: BLOOD SPECIMEN Ordering Facility: [facility] Address: [address] [place], [place] [address]Result Comment: Estimated Glomerular Filtration Rate (eGFR) is [...] reflect actual GFR.Performed By: #### 2857-1 #### [facility] CLIA [id number] [address] [place] [address] [place] AMERICAGlucose [Mass/Vol]123 mg/fFSdqt07-99 [facility] on above:Order Comment: Specimen Type: BLOOD SPECIMEN Ordering Facility: [facility] Address: [address] [place], [place] [address]Result Comment: The [place] Diabetes Association (ADA) provides guidance for cutoff [...] Standards of Medical Care in Diabetes 2016, [place] [employer]. Diabetes Care. 2016.39(Suppl 1).Performed By: #### 2857-1 #### [facility] CLIA [id number] [address] [place] [address] [place] AMERICAPotassium [Moles/Vol]4.6 mmol/L Normal3.7-5.1CSt. Anthony's Hospital on above:Order Comment: Specimen Type: BLOOD SPECIMEN Ordering Facility: [facility] Address: [address] [place], [place] [address]Performed By: #### 2857-1 #### [facility] CLIA [id number] [address] [place] [address] [place] AMERICAProtein [Mass/Vol]6.5 g/dLNormal 6.3-8.0[facility] on above:Order Comment: Specimen Type: BLOOD SPECIMEN Ordering Facility: [facility] Address: [address] [place], [place] [address]Performed By: #### 2857-1 #### [facility] CLIA [id number] [address] [place] [address] [place] AMERICASodium [Moles/Vol]137 mmol/LNormal 136-144[facility] on above:Order Comment: Specimen Type: BLOOD SPECIMEN Ordering Facility: [facility] Address: [address] [place], [place] [address]Performed By: #### 2857-1 #### [facility] CLIA [id number] [address] [place] [address] [place] AMERICAUrea nitrogen [Mass/Vol]16 mg/dL Normal9-24[facility] on above:Order Comment: Specimen Type: BLOOD SPECIMEN Ordering Facility: [facility] Address: [address] [place], [place] [address]Performed By: #### 2857-1 #### [facility] CLIA [id number] [address] [place] [address] [place] AMERICAPSA SerPl-mCncon 20-44-2356Wtjicokz specific Ag [Mass/Vol]0.22 ng/mLNormal<2.60[facility] on above:Order Comment: Specimen Type: BLOOD SPECIMEN Ordering Facility: [facility] Address: [address] [place] [place], [place] [address]Ifxukn Comment: Total PSA test methodology used is the Electrochemiluminescence Immunoassay by [employer]. Total PSA values by differing methodologies cannot be interchanged. Performed By: #### 29105-9 #### [facility] CLIA [id number] [address] [place] [address] 79666Apwcogcffd Visit Summaryon 03-08-2048Wrxyftusyc Visit Summary Ambulatory Visit Summary PABLO FELIX [...] mg Tab) ipratropium nasal (ipratropium Nasal 0.06% Finderne) metformin (metformin 1000 mg oral tablet) metoprolol [...] Anthony SCRUGGS MD Where: [facility] [address] [facility] [place] [address]- You Need to Schedule the Following Appointments Follow Up with Anthony SCRUGGS MD, URL When: Comments: 6 mos w/ PSA and Lupron Where: [facility] [address], [facility] [place] [address]- [phone] Medications What How Much When Instructions Unchanged [...] concerns Unchanged ipratropium nasal (ipratropium Nasal 0.06% Finderne) Contact prescribing physician if questions or concerns [...] If the prostate cancer (more content not included)...[facility] EastUrology Office/Clinic Noteon 89-43-7391Pwgqtnu Office/Clinic NoteUrology Office/Clinic Note Chief Complaint 6 [...] 0.27 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 [place] 9 (5+4), pT2b, N0, Mo. Last Lupron [...] [facility] [address] , [place] [address] [phone] Additional Instructions: 6 mos w/ PSA and [...] 1 tab(s), Oral, Daily ipratropium Nasal 0.06% Finderne metformin 1000 mg oral tablet, Oral, BID [...] Comments influenza virus vacc (more content not included)...[facility] EastComment on above:Result Comment: Electronically Signed By: SCRUGGS Anthony JAMES\.br\Date and Time Signed: 10/07/24 10:00 EDT\.br\Electronically Co- Signed By: Jeanine Crandall\.br\Date and Time Co-Signed: 10/07/24 09:59 EDTCNOVSPon 58-49-9558HIMWZMFsqme (SP) Office ([place]) JERICAPABLO An ([id number]) 1945 M Date Time Provider Department 08/08/24 9:30 AM CHRISTO HOWARD During your visit today, we recorded the following information about you: Temperature Pulse Respiration Blood pressure 97.9 degrees 57/minute 16/minute 149/56 Weight Height 95 kg 1.676 m Christo Howard APRN.[employer] 08/08/2024 12:09 PM Signed PATIENT NAME: Pablo Felix DATE: 08/08/2024 PRIMARY CARE PHYSICIAN: Dr. Jamar Fall OTHER PHYSICIANS: Dr. Anthony Scruggs, Dr. Khan, [facility] Cardiology Portions of this encounter note have [...] mg 24 hr tablet Take by mouth. 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 Left base margin positive for neoplasm. Seminal vesicles with no diagnostic abnormality. 2 resected lymph nodes negative for neoplasm. LABS: Hemoglobin (g/dL) Date Value 08/01/2024 12.2 05/08/2018 12.8 Hematoc (more content not included)...NormalUc Medical CenterBasophils Auto (Bld) [#/Vol]on 57-04-1969Jflsckjux (Bld) [#/Vol]Automated basophil count <0.11[facility] DaytonBasophils/100 WBC Auto (Bld)on 08-01-2024 Basophils/100 WBC (Bld)Automated basophil %[facility] Blood manual differential comment interpretation narrativeon 55-47-9327Cpynex differential comment [place] (Bld) [Interp]Blood manual differential comment interpretation narrativeKettering Health DaytonCB W Auto Differential panel (Bld)on 57-56-3145Sqxolzyqf (Bld) [#/Vol]0.03 10*3/uLNICorey Hospital Basophils/100 WBC (Bld)0.5 %[facility] - CantonDifferential cell count method Nom (Bld)AutoCleveland ClinicEosinophils (Bld) [#/Vol]0.5 10*3/uLHighNINFSelect Medical Specialty Hospital - CantonEosinophils/100 WBC (Bld)8.5 %[facility] Hospital - CantonErythrocyte distribution width (RBC) [Ratio]12.7 %11.5 - 15.0 %[facility] - CantonHematocrit (Bld) [Volume fraction]35.7 %Low39.0 - 51.0 %[facility] - CantonHemoglobin (Bld) [Mass/Vol]12.2 g/dLLow13.0 - 17.0 g/dLSelect Medical Specialty Hospital - CantonImmature granulocytes (Bld) [#/Vol]0.04 10*3/uLNINFSelect Medical Specialty Hospital - CantonImmature granulocytes/100 WBC (Bld)0.7 %[facility] - CantonInterpretation and review of laboratory resultsAbnormalCGalion Hospital Lymphocytes (Bld) [#/Vol]1.55 10*3/uLSelect Medical Specialty Hospital - CantonLymphocytes/100 WBC (Bld) 26.5 %[facility] CenterH (RBC) [Entitic mass]32.4 pg26.0 - 34.0 pgClevelMaple Grove HospitalHC (RBC) [Mass/Vol]34.2 g/dL30.5 - 36.0 g/dLFulton County Health CenterV (RBC) [Entitic vol]94.9 fL80.0 - 100.0 fLCGalion HospitalMonocytes (Bld) [#/Vol]0.55 10*3/uLNINFSelect Medical Specialty Hospital - CantonMonocytes/100 WBC (Bld)9.4 %[facility] Neutrophils (Bld) [#/Vol]3.19 10*3/[facility]orial Health SystemNeutrophils/100 WBC (Bld) 54.4 %[facility] CantonNucleated RBC (Bld) [#/Vol]NINFCleveland Mayo Clinic Health SystemNucleated RBC/100 WBC (Bld) [Ratio]0 %/100 WBCSelect Medical Specialty Hospital - CantonPlatelet mean volume (Bld) [Entitic vol]9.4 fL9.0 - 12.7 fLCGalion HospitalPlatelets (Bld) [#/Vol]177 10*3/uLSelect Medical Specialty Hospital - CantonRBC (Bld) [#/Vol]3.76 10*6/uLLow4.20 - 6.00 m/[facility]orial Health SystemWBC (Bld) [#/Vol]5.86 10*3/uLBethesda North Hospital ClinicBasophils (Bld) [#/Vol]0.03 10*3/uLNormal<0.11CSt. Anthony's Hospital on above: Order Comment: Specimen Type: BLOOD SPECIMEN Ordering Facility: [facility] Address: [address] [place], [place] [address]Performed By: #### [id number] #### [facility] CLIA [id number] [address] [place] [address] [place] AMERICABasophils/100 WBC (Bld)0.5 %Normal [facility] on above:Order Comment: Specimen Type: BLOOD SPECIMEN Ordering Facility: [facility] Address: [address] [place], [place] [address]Performed By: #### 2857-1 #### [facility] CLIA [id number] [address] [place] [address] [place] AMERICADifferential cell count method Nom (Bld)AutoNormalCSt. Anthony's Hospital on above:Order Comment: Specimen Type: BLOOD SPECIMEN Ordering Facility: [facility] Address: [address] [place], [place] [address]Performed By: #### 2857-1 #### [facility] CLIA [id number] [address] [place] [address] [place] AMERICAEosinophils (Bld) [#/Vol]0.50 10*3/uLHigh<0.46[facility] on above:Order Comment: Specimen Type: BLOOD SPECIMEN Ordering Facility: [facility] Address: [address] [place], [place] [address]Performed By: #### 2857-1 #### [facility] CLIA [id number] [address] [place] [address] [place] AMERICAEosinophils/100 WBC (Bld)8.5 %Normal [facility] on above:Order Comment: Specimen Type: BLOOD SPECIMEN Ordering Facility: [facility] Address: [address] [place], [place] [address]Performed By: #### 2857-1 #### [facility] CLIA [id number] [address] [place] [address] [place] AMERICAErythrocyte distribution width (RBC) [Ratio]12.7 %Bntpdo04.5-15.0[facility] on above:Order Comment: Specimen Type: BLOOD SPECIMEN Ordering Facility: [facility] Address: [address] [place], [place] [address]Performed By: #### 2857-1 #### [facility] CLIA [id number] [address] [place] [address] [place] AMERICAHematocrit (Bld) [Volume fraction] 35.7 %Low39.0-51.0[facility] on above:Order Comment: Specimen Type: BLOOD SPECIMEN Ordering Facility: [facility] Address: [address] [place], [place] [address]Performed By: #### 2857-1 #### [facility] CLIA [id number] [address] [place] [address] [place] AMERICAHemoglobin (Bld) [Mass/Vol]12.2 g/dL Low13.0-17.0[facility] on above:Order Comment: Specimen Type: BLOOD SPECIMEN Ordering Facility: [facility] Address: [address] [place], [place] [address]Performed By: #### 2857-1 #### [facility] CLIA [id number] [address] [place] [address] [place] AMERICAImmature granulocytes (Bld) [#/Vol] 0.04 10*3/uLNormal<0.10[facility] on above:Order Comment: Specimen Type: BLOOD SPECIMEN Ordering Facility: [facility] Address: [address] [place], [place] [address]Performed By: #### 2857-1 #### [facility] CLIA [id number] [address] [place] [address] [place] AMERICAImmature granulocytes/100 WBC (Bld) 0.7 %NormalOhio State [facility]ing Hospital on above:Order Comment: Specimen Type: BLOOD SPECIMEN Ordering Facility: [facility] Address: [address] [place], [place] [address]Performed By: #### 2857-1 #### [facility] CLIA [id number] [address] [place] [address] [place] AMERICALymphocytes (Bld) [#/Vol]1.55 10*3/uLNormal1.00-4.00[facility] on above:Order Comment: Specimen Type: BLOOD SPECIMEN Ordering Facility: [facility] Address: [address] [place], [place] [address]Performed By: #### 2857-1 #### [facility] CLIA [id number] [address] [place] [address] [place] AMERICALymphocytes/100 WBC (Bld)26.5 % NormalOhio [facility]ing Hospital on above:Order Comment: Specimen Type: BLOOD SPECIMEN Ordering Facility: [facility] Address: [address] [place], [place] [address]Performed By: #### 2857-1 #### [facility] CLIA [id number] [address] [place] [address] (RBC) [Entitic mass]32.4 pg Qzrmnq25.0-34.0[facility] on above:Order Comment: Specimen Type: BLOOD SPECIMEN Ordering Facility: [facility] Address: [address] [place], [place] [address]Performed By: #### 2857-1 #### [facility] CLIA [id number] [address] [place] [address] (RBC) [Mass/Vol]34.2 g/dLNormal 30.5-36.0[facility] on above:Order Comment: Specimen Type: BLOOD SPECIMEN Ordering Facility: [facility] Address: [address] [place], [place] [address]Performed By: #### 2857-1 #### [facility] CLIA [id number] [address] [place], [place] [address] [place] AMERICAMCV (RBC) [Entitic vol]94.9 fLNormal 80.0-100.0[facility] on above:Order Comment: Specimen Type: BLOOD SPECIMEN Ordering Facility: [facility] Address: [address] [place], [place] [address]Performed By: #### 2857-1 #### [facility] CLIA [id number] [address] [place] [address] [place] AMERICAMonocytes (Bld) [#/Vol]0.55 10*3/uL Normal<0.87[facility] on above:Order Comment: Specimen Type: BLOOD SPECIMEN Ordering Facility: [facility] Address: [address] [place], [place] [address]Performed By: #### 2857-1 #### [facility] CLIA [id number] [address] [place] [address] [place] AMERICAMonocytes/100 WBC (Bld)9.4 %Normal [facility] on above:Order Comment: Specimen Type: BLOOD SPECIMEN Ordering Facility: [facility] Address: [address] [place], [place] [address]Performed By: #### 2857-1 #### [facility] CLIA [id number] [address] [place] [address] [place] AMERICANeutrophils (Bld) [#/Vol]3.19 10*3/uLNormal1.45-7.50[facility] on above:Order Comment: Specimen Type: BLOOD SPECIMEN Ordering Facility: [facility] Address: [address] [place], [place] [address]Performed By: #### 2857-1 #### [facility] CLIA [id number] [address] [place] [address] [place] AMERICANeutrophils/100 WBC (Bld)54.4 % NormalOhio State [facility]ing Hospital on above:Order Comment: Specimen Type: BLOOD SPECIMEN Ordering Facility: [facility] Address: [address] [place], [place] [address]Performed By: #### 2857-1 #### [facility] CLIA [id number] [address] [place] [address] [place] AMERICANucleated RBC (Bld) [#/Vol]10*3/uL Normal<0.01[facility] on above:Order Comment: Specimen Type: BLOOD SPECIMEN Ordering Facility: [facility] Address: [address] [place], [place] [address]Performed By: #### 2857-1 #### [facility] CLIA [id number] [address] [place] [address] [place] AMERICANucleated RBC/100 WBC (Bld) [Ratio] 0.0 /100 WBCNormalCSt. Anthony's Hospital on above:Order Comment: Specimen Type: BLOOD SPECIMEN Ordering Facility: [facility] Address: [address] [place], [place] [address]Performed By: #### 2857-1 #### [facility] CLIA [id number] [address] [place] [address] [place] AMERICAPlatelet mean volume (Bld) [Entitic vol]9.4 fLNormal9.0-12.7CSt. Anthony's Hospital on above:Order Comment: Specimen Type: BLOOD SPECIMEN Ordering Facility: [facility] Address: [address] [place], [place] [address]Performed By: #### 2857-1 #### [facility] CLIA [id number] [address] [place] [address] [place] AMERICAPlatelets (Bld) [#/Vol]177 10*3/uL Bkvbxi338-749VdndifhuqOhio State Harding Hospital on above:Order Comment: Specimen Type: BLOOD SPECIMEN Ordering Facility: [facility] Address: [address] [place], [place] [address]Performed By: #### 2857-1 #### [facility] CLIA [id number] [address] [place] [address] [place] AMERICARBC (Bld) [#/Vol]3.76 10*6/uLLow 4.20-6.00[facility] on above:Order Comment: Specimen Type: BLOOD SPECIMEN Ordering Facility: [facility] Address: [address] [place], [place] [address]Performed By: #### 2857-1 #### [facility] CLIA [id number] [address] [place] [address] [place] AMERICAWBC (Bld) [#/Vol]5.86 10*3/uLNormal 3.70-11.00[facility] on above:Order Comment: Specimen Type: BLOOD SPECIMEN Ordering Facility: [facility] Address: [address] [place], [place] [address]Performed By: #### 2857-1 #### [facility] CLIA [id number] [address] [place] [address] OF [facility]PITALComprehensive metabolic 2000 panel Ordered By: Liza Lilly on 85-27-9449Euymltn [Mass/Vol]4.2 g/dL3.9 - 4.9 g/dL [facility]ALP [Catalytic activity/Vol]75 U/L38 - 113 U/LCleveland Clinic ALT [Catalytic activity/Vol]17 U/L10 - 54 U/LCleveland ClinicAnion gap [Moles/Vol]11 mmol/L8 - 15 mmol/LCleveland ClinicAST [Catalytic activity/Vol]17 U/L14 - 40 U/LCleveland ClinicBilirubin [Mass/Vol]0.6 mg/dL0.2 - 1.3 mg/dL [facility]onCalcium [Mass/Vol]10.3 mg/dLHigh8.5 - 10.2 mg/dLSelect [facility]ty [facility] Chloride [Moles/Vol]100 mmol/L98 - 107 mmol/LCleveland ClinicCO2 [Moles/Vol]26 mmol/L22 - 30 mmol/LCleveland ClinicCreatinine [Mass/Vol]0.81 mg/dL0.73 - 1.22 mg/dLSelect Medical Specialty Hospital - CantonGFR/1.73 sq M.predicted among non-blacks MDRD (S/P/Bld) [Vol [...] eGFRmay not accurately reflect actual GFR.Glucose [Mass/Vol]119 mg/tSQrpb02 - 99 mg/dLAdena Regional Medical Center on above:The [place] Diabetes Association (ADA) provides guidance for cutoff [...] Standards of Medical Care in Diabetes 2016, [place] Diabetes Association. Diabetes Care. 2016.39(Suppl 1). Interpretation and review of laboratory resultsAbnormalCleveland ClinicPotassium [Moles/Vol]4.8 mmol/L3.7 - 5.1 mmol/LCcleveland clinic south pointe hospital ClinicProtein [Mass/Vol]6.3 g/dL 6.3 - 8.0 g/dLKettering Health Behavioral Medical Centerodium [Moles/Vol]137 mmol/L136 - 144 mmol/L [facility] - CantonUrea nitrogen [Mass/Vol]14 mg/dL9 - 24 mg/dLParkview Health Bryan HospitalComprehensive metabolic 2000 panelon 36-94-4524Wrisiio [Mass/Vol]4.2 g/dLNormal3.9-4.9CSt. Anthony's Hospital on above:Order Comment: Specimen Type: BLOOD SPECIMEN Ordering Facility: [facility] Address: [address] [place], [place] [address]Performed By: #### 2857-1 #### [facility] CLIA [id number] [address] [place] [address] [place] AMERICAALP [Catalytic activity/Vol]75 U/L Otktqs47-119LxchvmwkbOhio State Harding Hospital on above:Order Comment: Specimen Type: BLOOD SPECIMEN Ordering Facility: [facility] Address: [address] [place], [place] [address]Performed By: #### 2857-1 #### [facility] CLIA [id number] [address] [place], [place] [address] [place] AMERICAALT [Catalytic activity/Vol]17 U/L Exevdr67-52HospijnzhOhio State Harding Hospital on above:Order Comment: Specimen Type: BLOOD SPECIMEN Ordering Facility: [facility] Address: [address] [place], [place] [address]Performed By: #### 2857-1 #### [facility] CLIA [id number] [address] [place] [address] [place] AMERICAAnion gap [Moles/Vol]11 mmol/LNormal 8-15[facility] on above:Order Comment: Specimen Type: BLOOD SPECIMEN Ordering Facility: [facility] Address: [address] [place], [place] [address]Performed By: #### 2857-1 #### [facility] CLIA [id number] [address] [place] [address] [place] AMERICAAST [Catalytic activity/Vol]17 U/L Bfhqds82-21XjhlmsujoOhio State Harding Hospital on above:Order Comment: Specimen Type: BLOOD SPECIMEN Ordering Facility: [facility] Address: [address] [place], [place] [address]Performed By: #### 2857-1 #### [facility] CLIA [id number] [address] [place] [address] [place] AMERICABilirubin [Mass/Vol]0.6 mg/dLNormal 0.2-1.3CSt. Anthony's Hospital on above:Order Comment: Specimen Type: BLOOD SPECIMEN Ordering Facility: [facility] Address: [address] [place], [place] [address]Performed By: #### 2857-1 #### [facility] CLIA [id number] [address] [place] [address] [place] AMERICACalcium [Mass/Vol]10.3 mg/dLHigh 8.5-10.2CSt. Anthony's Hospital on above:Order Comment: Specimen Type: BLOOD SPECIMEN Ordering Facility: [facility] Address: [address] [place], [place] [address]Performed By: #### 2857-1 #### [facility] CLIA [id number] [address] [place] [address] [place] AMERICAChloride [Moles/Vol]100 mmol/LNormal 98-107[facility] on above:Order Comment: Specimen Type: BLOOD SPECIMEN Ordering Facility: [facility] Address: [address] [place], [place] [address]Performed By: #### 2857-1 #### [facility] CLIA [id number] [address] [place] [address] [place] AMERICACO2 [Moles/Vol]26 mmol/CVeljbm77-87 [facility] on above:Order Comment: Specimen Type: BLOOD SPECIMEN Ordering Facility: [facility] Address: [address] [place], [place] [address]Performed By: #### 2857-1 #### [facility] CLIA [id number] [address] [place] [address] [place] AMERICACreatinine [Mass/Vol]0.81 mg/dL Normal0.73-1.22[facility] on above:Order Comment: Specimen Type: BLOOD SPECIMEN Ordering Facility: [facility] Address: [address] [place], [place] [address]Performed By: #### 2857-1 #### [facility] CLIA [id number] [address] [place] [address] [place] AMERICACreatinine and Glomerular filtration rate.predicted panel (S/P/Bld)90 mL/min/1.73m???Normal>=60[facility] on above:Order Comment: Specimen Type: BLOOD SPECIMEN Ordering Facility: [facility] Address: [address] [place], [place] [address]Result Comment: Estimated Glomerular Filtration Rate (eGFR) is [...] reflect actual GFR.Performed By: #### 2857-1 #### [facility] CLIA [id number] [address] [place] [address] [place] AMERICAGlucose [Mass/Vol]119 mg/aJErma51-43 [facility] on above:Order Comment: Specimen Type: BLOOD SPECIMEN Ordering Facility: [facility] Address: [address] [place], [place] [address]Result Comment: The [place] Diabetes Association (ADA) provides guidance for cutoff [...] Standards of Medical Care in Diabetes 2016, [place] Diabetes Association. Diabetes Care. 2016.39(Suppl 1).Performed By: #### 2857-1 #### [facility] CLIA [id number] [address] [place] [address] [place] AMERICAPotassium [Moles/Vol]4.8 mmol/L Normal3.7-5.1CSt. Anthony's Hospital on above:Order Comment: Specimen Type: BLOOD SPECIMEN Ordering Facility: [facility] Address: [address] [place], [place] [address]Performed By: #### 2857-1 #### [facility] CLIA [id number] [address] [place] [address] [place] AMERICAProtein [Mass/Vol]6.3 g/dLNormal 6.3-8.0[facility] on above:Order Comment: Specimen Type: BLOOD SPECIMEN Ordering Facility: [facility] Address: [address] [place], [place] [address]Performed By: #### 2857-1 #### [facility] CLIA [id number] [address] [place] [address] [place] AMERICASodium [Moles/Vol]137 mmol/LNormal 136-144[facility] on above:Order Comment: Specimen Type: BLOOD SPECIMEN Ordering Facility: [facility] Address: [address] [place], [place] [address]Performed By: #### 2857-1 #### [facility] CLIA [id number] [address] [place] [address] [place] AMERICAUrea nitrogen [Mass/Vol]14 mg/dL Normal9-24[facility] on above:Order Comment: Specimen Type: BLOOD SPECIMEN Ordering Facility: [facility] Address: [address] [place], [place] [address]Performed By: #### 2857-1 #### [facility] CLIA [id number] [address] [place] [address] [place] AMERICAEosinophils/100 WBC Auto (Bld)on 73-58-9708Fhotdwvapfu/100 WBC (Bld)Automated eosinophil %[facility] DaytonErythrocyte distribution width Auto (RBC) [Ratio]on 08-01-2024 Erythrocyte distribution width (RBC) [Ratio]Erythrocyte distribution width [Ratio] by Automated count11.5-15.0[facility] DaytonHematocrit Auto (Bld) [Volume fraction]on 86-55-1560Gngrcnegpd (Bld) [Volume fraction] Hematocrit [Volume Fraction] of Blood by Automated gkkglYyk06.0-51.0[facility] DaytonHemoglobin [Mass/volume] in Bloodon 01-11-2411Qhjqlkokmx (Bld) [Mass/Vol]Hemoglobin [Mass/volume] in RvawcEpa22.0-17.0[facility] DaytonLaboratory - Chemistry and Chemistry - challengeon 08-01-2024 Albumin [Mass/Vol]4.2 g/dL3.9-4.9[facility] DaytonALP [Catalytic activity/Vol]75 U/O94-990AxkmkogtfKettering Health DaytonALT [Catalytic activity/Vol]17 U/Z90-06BievrlcknKettering Health DaytonAST [Catalytic activity/Vol]17 U/C26-01YqlsgflmdKettering Health DaytonBilirubin [Mass/Vol]0.6 mg/dL0.2-1.3FSelect Medical TriHealth Rehabilitation HospitalCalcium [Mass/Vol]10.3 mg/dLHigh 8.5-10.2FSelect Medical TriHealth Rehabilitation HospitalChloride [Moles/Vol]100 mmol/L98-107 [facility] DaytonCO2 [Moles/Vol]26 mmol/E33-71UomtdxwpjKettering Health DaytonCreatinine [Mass/Vol]0.81 mg/dL0.73-1.22[facility] DaytonGlucose [Mass/Vol]119 mg/lBZciq39-43VciajariiKettering Health DaytonComment on above:The [place] Diabetes Association (ADA) provides guidance for cutoff [...] diabetes.Reference: Standardsof Medical Care in Diabetes 2016, [place] Diabetes Association. Diabetes Care. 2016.39(Suppl 1).Potassium [Moles/Vol]4.8 mmol/L 3.7-5.1FDayton Osteopathic Hospitalodium [Moles/Vol]137 mmol/G451-307 [facility] DaytonUrea nitrogen [Mass/Vol]14 mg/dL9-24[facility] DaytonLaboratory - Hematology and Cell countson 08-01-2024 Eosinophils (Bld) [#/Vol]0.50 10*3/uLHigh<0.46[facility] Immature granulocytes (Bld) [#/Vol]0.04 10*3/uL<0.10[facility] DaytonImmature granulocytes/100 WBC (Bld)0.7 %[facility] Leukocytes [#/volume] corrected for nucleated erythrocytes in Blood by Automated counon 52-75-8928MMI corrected for nucl RBC Auto (Bld) [#/Vol]Leukocytes [#/volume] corrected for nucleated erythrocytes in Blood by Automated coun 3.70-11.00[facility] DaytonLymphocytes Auto (Bld) [#/Vol]on 35-29-0199Efkhubzzrey (Bld) [#/Vol]Lymphocytes [#/volume] in Blood by Automated count1.00-4.00[facility] DaytonLymphocytes/100 WBC Auto (Bld)on 69-00-2034Iulktvjywkb/100 WBC (Bld)Lymphocytes/100 leukocytes in Blood by Automated countAdams County Regional Medical CenterH Auto (RBC) [Entitic mass]on 37-61-8019MYX (RBC) [Entitic mass]MCH [Entitic mass] by Automated count26.0-34.0 [facility] DaytonMCHC Auto (RBC) [Mass/Vol]on 43-53-1379PUOV (RBC) [Mass/Vol]MCHC [Mass/volume] by Automated count30.5-36.0[facility] DaytonMCV Auto (RBC) [Entitic vol]on 72-41-3434USG (RBC) [Entitic vol] MCV [Entitic volume] by Automated count80.0-100.0[facility] DaytonMonocytes Auto (Bld) [#/Vol]on 65-94-9666Dryqhtnvp (Bld) [#/Vol]Automated blood monocyte count<0.87[facility] DaytonMonocytes/100 WBC Auto (Bld)on 85-64-3969Etghewgof/100 WBC (Bld)Automated monocyte %[facility] DaytonNeutrophils Auto (Bld) [#/Vol]on 43-45-8983Vzszgwyrubd (Bld) [#/Vol]Neutrophils [#/volume] in Blood by Automated count1.45-7.50[facility] DaytonNeutrophils/100 WBC Auto (Bld)on 08-01-2024 Neutrophils/100 WBC (Bld)Automated neutrophil %[facility] No Panel Informationon 54-99-5423Bbvztullx GFR (CKD-EPI)90 mL/min/1.73m???>=60 [facility] DaytonComment on above:Estimated Glomerular Filtration Rate (eGFR) is calculated using the 2020 CKD-EPI creatinine equation. This equation utilizes serum creatinine, sex, and age as parameters. The creatinine assay has traceable calibration to isotope dilution-mass spectrometry. Refer to KDIGO guidelines for clinical interpretation. In patients with unstable renal function, e.g. those with acute kidney injury, the eGFRmay not accurately reflect actual GFR.Prostate Specific Antigen0.19 ng/mL<2.60 [facility] DaytonComment on above:Total PSA test methodology used is the Electrochemiluminescence Immunoassay by [employer]. Total PSA values by differing methodologies cannot be interchanged.Nucleated RBC Auto (Bld) [#/Vol]on 04-49-4761Jkgmtlgrh RBC (Bld) [#/Vol]Nucleated erythrocytes [#/volume] in Blood by Automated count<0.01[facility] Nucleated erythrocytes [Presence] in Blood by Automated counton 08-01-2024 Nucleated RBC Auto Ql (Bld)Nucleated erythrocytes [Presence] in Blood by Automated countKettering Health DaytonPROSTATE-SPECIFIC ANTIGEN DIAGNOSTICon 86-71-8749Flxpofhd specific Ag [Mass/Vol]0.19 ng/mLNINF - 2.60 ng/mLCcleveland clinic south pointe hospital ClinicComment on above:Total PSA test methodology used is the Electrochemiluminescence Immunoassay by [employer]. Total PSA values by differing methodologies cannot be interchanged.PSA SerPl-mCncon 08-01-2024 Prostate specific Ag [Mass/Vol]0.19 ng/mLNormal<2.60[facility] Comment on above:Order Comment: Specimen Type: BLOOD SPECIMEN Ordering Facility: [facility] Address: [address] [place], [place] [address]Result Comment: Total PSA test methodology used is the Electrochemiluminescence Immunoassay by [employer]. Total PSA values by differing methodologies cannot be interchanged. Performed By: #### 44947-7 #### [facility] CLIA [id number] [address] [place] [address]Drupwixy mean volume Auto (Bld) [Entitic vol]on 08-01-2024 Platelet mean volume (Bld) [Entitic vol]Platelet mean volume [Entitic volume] in Blood by Automated count9.0-12.7FSelect Medical TriHealth Rehabilitation HospitalPlatelets Auto (Bld) [#/Vol]on 13-74-9349Pvcqxmcfh (Bld) [#/Vol]Platelets [#/volume] in Blood by Automated -256PdpsiyzozKettering Health DaytonProstate specific Ag [Mass/Vol]on 05-32-5843Wputgvkatgoeem and review of laboratory resultsNormal [facility] ClinicProtein [Mass/volume] in Serum or Plasmaon 10-93-6757Idpdjqd [Mass/Vol]Protein [Mass/volume] in Serum or Plasma6.3-8.0 [facility] DaytonRBC Auto (Bld) [#/Vol]on 67-42-4460LYI (Bld) [#/Vol]Erythrocytes [#/volume] in Blood by Automated countLow4.20-6.00Pike Community Hospitalerum or plasma anion gap determinationon 52-32-6484Smicl gap [Moles/Vol]Serum or plasma anion gap determination8-15[facility] DaytonCNPNon 12-08-9634XCFISnpkubrcv (LABSAN) PABLO FELIX ([id number]) 1945 M Date Time Provider Department 07/25/24 [...] Reviewed: 02/02/2024 Reviewed by: Lynne Rajan APRN.[employer] - Fully Assessed Reason for Visit: Lab Orders [1688] Primary Visit Diagnosis:Malignant neoplasm of prostate (HCC) [C61] Order(s):COMPLETE BLOOD COUNT AND DIFFERENTIAL [SQCBCDIF] Order #: [id number] FUTURE COMPREHENSIVE METABOLIC PANEL [SQCMP] Order #: [id number] FUTURE PROSTATE-SPECIFIC ANTIGEN DIAGNOSTIC [SQPSA] Order #: [id number] FUTURE Prescriptions as of 10/16/2024 - enzalutamide (XTANDI) 40 mg tablet Take 4 tablets (160 mg) by mouth once daily. - Calcium Citrate-Vitamin D3 200 mg-6.25 mcg (250 unit) tab Take 2 tablets by mouth once daily. - metoprolol succinate ER (TOPROL XL) 25 mg 24 hr tablet Take by mouth. - Afaajhsmmjksp-Gkmrjhqo-Fcyrzy (MULTIVITAMIN 50 PLUS) tab Take 1 tablet [...] prostate (HCC) [C61] 08/06/2014 Encounter Status:Closed by JOSEMANEUL BLANCHARD on 10/16/24[facility]Ambulatory Visit Summaryon [id number] Visit SummaryAmbulatory Visit Summary PABLO FELIX :1945 [...] mg Tab) ipratropium nasal (ipratropium Nasal 0.06% Finderne) metformin (metformin 1000 mg oral tablet) metoprolol [...] Anthony SCRUGGS MD Where: [facility] [address] [place] [address]- You Need to Schedule the Following Appointments Follow Up with Anthony SCRUGGS MD, URL When: Where: [address] [place] [address]- Medications What How Much When Instructions Unchanged [...] concerns Unchanged ipratropium nasal (ipratropium Nasal 0.06% Finderne) Contact prescribing physician if questions or concerns [...] urine. ? Trouble st (more content not included)...[facility] Office/Clinic Noteon [phone] Office/Clinic NoteUrology Office/Clinic Note Chief Complaint rising [...] Xgeva q3mos. Last seen by [facility] oncology 02/02/24. Plan at that time was [...] With When Contact Information KAEL JAMES, Anthony eLe, URL [address] [place] [address]- Additional Instructions: 6 mos w/ PSA and [...] glimepiride, Oral, Daily hydrochlorothiazide-lisinopril (more content not included)...[facility] EastComment on above:Result Comment: Electronically Signed By: Anthony SCRUGGS MD\.br\Date and Time Signed: 04/19/24 08:47 EDT\.br\Electronically Co-Signed By: Olamide Ureña.br\Date and Time Co-Signed: 04/19/2408:45 EDTBasophils Auto (Bld) [#/Vol]on 07-74-2102Xhxjmhbah (Bld) [#/Vol]0.04 10*3/uL <0.11[facility] DaytonBasophils/100 WBC Auto (Bld)on 01-25-2024 Basophils/100 WBC (Bld)0.6 %[facility] DaytonBlood manual differential comment interpretation narrativeon 10-64-9166Ufflhd differential comment [place] (Bld) [Interp]AutoKettering Health DaytonEosinophils/100 WBC Auto (Bld)on 99-31-8939Qmeixifdebx/100 WBC (Bld)5.9 %[facility] DaytonErythrocyte distribution width Auto (RBC) [Ratio]on 01-25-2024 Erythrocyte distribution width (RBC) [Ratio]12.7 %11.5-15.0[facility] DaytonHematocrit Auto (Bld) [Volume fraction]on 76-00-2286Xkvnokiult (Bld) [Volume fraction]34.6 %Low39.0-51.0[facility] Hemoglobin [Mass/volume] in Bloodon 13-42-6128Oqvyfovbfo (Bld) [Mass/Vol]11.8 g/dLLow13.0-17.0[facility] DaytonLaboratory - Chemistry and Chemistry - challengeon 89-64-6529Jqywxaf [Mass/Vol]4.0 g/dL3.9-4.9[facility] DaytonALP [Catalytic activity/Vol]74 U/O42-488CpxmerbajKettering Health DaytonALT [Catalytic activity/Vol]18 U/E41-37YphcdvswmKettering Health DaytonAST [Catalytic activity/Vol]19 U/Q70-63CsfuwgqwbKettering Health DaytonBilirubin [Mass/Vol]0.7 mg/dL0.2-1.3FSelect Medical TriHealth Rehabilitation Hospital Calcium [Mass/Vol]9.9 mg/dL8.5-10.2FSelect Medical TriHealth Rehabilitation HospitalChloride [Moles/Vol]103 mmol/W49-837UqsqencozKettering Health DaytonCO2 [Moles/Vol]25 mmol/F15-43UfjvfmwotKettering Health DaytonCreatinine [Mass/Vol]0.79 mg/dL 0.73-1.22[facility] DaytonGlucose [Mass/Vol]112 mg/oGWjmq53-82 [facility] DaytonComment on above:The [place] Diabetes Association (ADA) provides guidance for cutoff [...] diabetes.Reference: Standardsof Medical Care in Diabetes 2016, [place] Diabetes Association. Diabetes Care. 2016.39(Suppl 1). Potassium [Moles/Vol]5.2 mmol/LHigh3.7-5.1FSelect Medical TriHealth Rehabilitation Hospital Sodium [Moles/Vol]137 mmol/F418-314FklkydvntKettering Health DaytonUrea nitrogen [Mass/Vol]15 mg/dL9-24[facility] DaytonLaboratory - Hematology and Cell countson 96-18-1484Cagglxfepjw (Bld) [#/Vol]0.40 10*3/uL <0.46[facility] DaytonImmature granulocytes (Bld) [#/Vol]0.07 10*3/uL<0.10[facility] DaytonImmature granulocytes/100 WBC (Bld) 1.0 %[facility] DaytonLeukocytes [#/volume] corrected for nucleated erythrocytes in Blood by Automated counon 46-27-3744MLC corrected for nucl RBC Auto (Bld) [#/Vol]6.80 k/uL3.70-11.00[facility] Lymphocytes Auto (Bld) [#/Vol]on 89-20-3009Ruotpufnvft (Bld) [#/Vol]2.16 10*3/uL 1.00-4.00[facility] DaytonLymphocytes/100 WBC Auto (Bld)on 74-00-9647Cxgrrxjmmwq/100 WBC (Bld)31.8 %[facility] CenterH Auto (RBC) [Entitic mass]on 47-43-2715ROL (RBC) [Entitic mass]32.2 pg26.0-34.0 [facility] DaytonMCHC Auto (RBC) [Mass/Vol]on 18-05-1563YQNH (RBC) [Mass/Vol]34.1 g/dL30.5-36.0[facility] DaytonMCV Auto (RBC) [Entitic vol]on 44-49-1411GPI (RBC) [Entitic vol]94.3 fL80.0-100.0 [facility] DaytonMonocytes Auto (Bld) [#/Vol]on 01-25-2024 Monocytes (Bld) [#/Vol]0.60 10*3/uL<0.87[facility] Monocytes/100 WBC Auto (Bld)on 62-90-2485Cjwenaopm/100 WBC (Bld)8.8 %[facility] DaytonNeutrophils Auto (Bld) [#/Vol]on 71-97-3507Dccjieqdysp (Bld) [#/Vol]3.53 10*3/uL1.45-7.50[facility] Neutrophils/100 WBC Auto (Bld)on 51-73-6051Kafgxpdgiiv/100 WBC (Bld)51.9 % [facility] DaytonNo Panel Informationon 59-57-6463Sthfbczpz GFR (CKD-EPI)91 mL/min/1.73m???>=60[facility] DaytonComment on above:Estimated Glomerular Filtration Rate (eGFR) is calculated using the 2020 CKD-EPI creatinine equation. This equation utilizes serum creatinine, sex, and age as parameters. The creatinine assay has traceable calibration to isotope dilution-mass spectrometry. Refer to KDIGO guidelines for clinical inte rpretation. In patients with unstable renal function, e.g. those with acute kidney injury, the eGFRmay not accurately reflect actual GFR.Prostate Specific Antigen0.15 ng/mL<2.60[facility] DaytonComment on above:Total PSA test methodology used is the Electrochemiluminescence Immunoassay by [employer]. Total PSA values by differing methodologies cannot be interchanged. Nucleated RBC Auto (Bld) [#/Vol]on 71-57-7286Vczzxdzzk RBC (Bld) [#/Vol]10*3/uL <0.01[facility] DaytonNucleated erythrocytes [Presence] in Blood by Automated counton 34-83-4331Evsrngyhv RBC Auto Ql (Bld)0.0 /100{WBC} [facility] DaytonPlatelet mean volume Auto (Bld) [Entitic vol]on 57-01-5688Mumycjlj mean volume (Bld) [Entitic vol]10.3 fL9.0-12.7FSelect Medical TriHealth Rehabilitation HospitalPlatelets Auto (Bld) [#/Vol]on 06-56-4248Qhpivfcir (Bld) [#/Vol]184 10*3/sS192-607GipbfholpKettering Health DaytonProtein [Mass/volume] in Serum or Plasmaon 65-84-0550Nilyjvu [Mass/Vol]6.6 g/dL6.3-8.0[facility] DaytonRBC Auto (Bld) [#/Vol]on 28-12-2635ZWT (Bld) [#/Vol]3.67 10*6/uLLow4.20-6.00[facility] Hospitalerum or plasma anion gap determinationon 30-16-3852Amuvg gap [Moles/Vol]9 mmol/L8-[facility] DaytonBasophils Auto (Bld) [#/Vol]on 95-26-8096Mjzlnkeay (Bld) [#/Vol] 0.04 10*3/uL<0.11[facility] DaytonBasophils/100 WBC Auto (Bld)on 83-54-4767Cilxmznxd/100 WBC (Bld)0.5 %[facility] DaytonBlood manual differential comment interpretation narrativeon 12-44-6130Ladxkc differential comment [place] (Bld) [Interp]AutoKettering Health Dayton Eosinophils/100 WBC Auto (Bld)on 31-07-4852Hgaafropqyd/100 WBC (Bld)4.3 % [facility] DaytonErythrocyte distribution width Auto (RBC) [Ratio]on 96-10-2244Bshbbirxenl distribution width (RBC) [Ratio]12.8 %11.5-15.0 [facility] DaytonHematocrit Auto (Bld) [Volume fraction]on 67-70-4387Gkhbuubsjw (Bld) [Volume fraction]35.8 %39.0-51.0[facility] DaytonHemoglobin [Mass/volume] in Bloodon 38-89-4460Hlisktzziz (Bld) [Mass/Vol]12.2 g/dL13.0-17.0[facility] DaytonLaboratory - Chemistry and Chemistry - challengeon 83-75-1791Hppnupw [Mass/Vol]4.1 g/dL 3.9-4.9[facility] DaytonALP [Catalytic activity/Vol]75 U/L38-113 [facility] DaytonALT [Catalytic activity/Vol]16 U/L10-54 [facility] DaytonAST [Catalytic activity/Vol]16 U/L14-40 [facility] DaytonBilirubin [Mass/Vol]0.7 mg/dL0.2-1.3FSelect Medical TriHealth Rehabilitation HospitalCalcium [Mass/Vol]9.8 mg/dL8.5-10.2FSelect Medical TriHealth Rehabilitation HospitalChloride [Moles/Vol]103 mmol/H93-426VgtoslzonKettering Health DaytonCO2 [Moles/Vol]24 mmol/H14-15ZkpuvmzkkKettering Health DaytonCreatinine [Mass/Vol]0.88 mg/dL0.73-1.22[facility] DaytonGlucose [Mass/Vol] 128 mg/kF93-61BouzvdwzfKettering Health DaytonComment on above:The [place] Diabetes Association (ADA) provides guidance for cutoff [...] diabetes.Reference: Standardsof Medical Care in Diabetes 2016, [place] Diabetes Association. Diabetes Care. 2016.39(Suppl 1). Potassium [Moles/Vol]4.8 mmol/L3.7-5.1FDayton Osteopathic Hospitalodium [Moles/Vol]140 mmol/J389-129QamtjxyluKettering Health DaytonUrea nitrogen [Mass/Vol]18 mg/dL9-24[facility] DaytonLaboratory - Hematology and Cell countson 31-89-1889Vlcdbqeogjd (Bld) [#/Vol]0.35 10*3/uL<0.46[facility] DaytonImmature granulocytes (Bld) [#/Vol]0.04 10*3/uL<0.10 [facility] DaytonImmature granulocytes/100 WBC (Bld)0.5 % [facility] DaytonLeukocytes [#/volume] corrected for nucleated erythrocytes in Blood by Automated counon 67-91-7670WAA corrected for nucl RBC Auto (Bld) [#/Vol]8.19 k/uL3.70-11.00[facility] Lymphocytes Auto (Bld) [#/Vol]on 73-90-5707Nmtlxsdbcxf (Bld) [#/Vol]1.36 10*3/uL 1.00-4.00[facility] DaytonLymphocytes/100 WBC Auto (Bld)on 96-65-3876Gxgjocxiytj/100 WBC (Bld)16.6 %[facility] CenterH Auto (RBC) [Entitic mass]on 20-01-8451YGR (RBC) [Entitic mass]31.3 pg26.0-34.0 [facility] DaytonMCHC Auto (RBC) [Mass/Vol]on 67-44-1996VHFC (RBC) [Mass/Vol]34.1 g/dL30.5-36.0[facility] DaytonMCV Auto (RBC) [Entitic vol]on 12-06-2779KDF (RBC) [Entitic vol]91.8 fL80.0-100.0 [facility] DaytonMonocytes Auto (Bld) [#/Vol]on 10-30-2023 Monocytes (Bld) [#/Vol]0.62 10*3/uL<0.87[facility] Monocytes/100 WBC Auto (Bld)on 28-05-9926Yuilttzme/100 WBC (Bld)7.6 %[facility] DaytonNeutrophils Auto (Bld) [#/Vol]on 88-29-3531Ihxgdsbepxw (Bld) [#/Vol]5.78 10*3/uL1.45-7.50[facility] Neutrophils/100 WBC Auto (Bld)on 77-68-6571Wypspnsizou/100 WBC (Bld)70.5 % [facility] DaytonNo Panel Informationon 85-55-4991Fpxpdtyly GFR (CKD-EPI)89 mL/min/1.73m???>=60[facility] DaytonComment on above:Estimated Glomerular Filtration Rate (eGFR) is calculated using the 2020 CKD-EPI creatinine equation. This equation utilizes serum creatinine, sex, and age as parameters. The creatinine assay has traceable calibration to isotope dilution-mass spectrometry. Refer to KDIGO guidelines for clinical inte rpretation. In patients with unstable renal function, e.g. those with acute kidney injury, the eGFRmay not accurately reflect actual GFR.Prostate Specific Antigen0.16 ng/mL<2.60[facility] DaytonComment on above:Total PSA test methodology used is the Electrochemiluminescence Immunoassay by [employer]. Total PSA values by differing methodologies cannot be interchanged. Testosterone Level78 ng/sK879-133GgbdiouwfKettering Health DaytonComment on above:A testosterone level in the 193-320 ng/dL range with associated clinical symptoms is considered lowand may indicate hypogonadism (from [facility] 2009 363:123- 135). Results >320 ng/dL are considered normal.Result rechecked.Nucleated RBC Auto (Bld) [#/Vol]on 62-63-4375Pfudgbonf RBC (Bld) [#/Vol]10*3/uL<0.01[facility] DaytonNucleated erythrocytes [Presence] in Blood by Automated counton 80-96-4420Abrbymzps RBC Auto Ql (Bld)0.0 /100{WBC}[facility] DaytonPlatelet mean volume Auto (Bld) [Entitic vol]on 92-02-9858Rkkcgjml mean volume (Bld) [Entitic vol]9.5 fL9.0-12.7FSelect Medical TriHealth Rehabilitation Hospital Platelets Auto (Bld) [#/Vol]on 26-09-2415Ljwligkmc (Bld) [#/Vol]192 10*3/uL 150-400[facility] DaytonProtein [Mass/volume] in Serum or Plasma on 33-87-5732Hchphmy [Mass/Vol]6.5 g/dL6.3-8.0[facility] RBC Auto (Bld) [#/Vol]on 38-44-5461SRK (Bld) [#/Vol]3.90 10*6/uL4.20-6.00 [facility] Hospitalerum or plasma anion gap determinationon 31-40-3304Ayepy gap [Moles/Vol]13 mmol/L9-18FSelect Medical TriHealth Rehabilitation HospitalNo Panel Informationon 45-36-3610Lbyjkrmi Specific Antigen Total<0.13 ng/mL<=4.00 [facility] DaytonNo Panel Informationon 94-92-9586FKIR HealthcareType of biopsy: tangential Informed consent: discussed [...] taken yes Amount of lidocaine used: 0.5 [facility] CenterGLYCOHEMOGLOBIN A1Con 23-29-5722DGF RECOMMENDATIONSEE BELOWAdena Health SystemComment on above:Result Comment: ADA RECOMMENDED LIMIT 4.0 - 6.0 ADA THERAPEUTIC TARGET < 7.0 ACTION SUGGESTED > 7.0Performed By: #### DATA1C #### [facility] [address] [place] [address] Dr. Bharati AguiarGlucose [Mass/Vol]131 mg/dLNoCentervilleComment on above:Performed By: #### DATA1C #### [facility] [address] [address] [address] Bharati AguiarHbA1c (Bld) [Mass fraction]6.2 %Normal4.5-6.2The [facility] – JacksonComment on above:Performed By: #### DATA1C #### [facility] [address] [address] [address] Bharati AguiarXR CSPINE OBL FLEX_EXTon 99-59-9305QA CSPINE OBL FLEX_EXT EXAMINATION: XR CSPINE OBL [...] Electronically authenticated by: CYNTHIA TORRES Date: 2022-07-21 15:52[facility] Health SystemGLYCOHEMOGLOBIN A1Con 79-92-8046DGE RECOMMENDATIONSEE BELOW NormalThe [facility] JacksonComment on above:Result Comment: ADA RECOMMENDED LIMIT 4.0 - 6.0 ADA THERAPEUTIC TARGET < 7.0 ACTION SUGGESTED > 7.0Performed By: #### DATA1C #### [facility] [address] [place] [address] Dr. Bharati AguiarGlucose [Mass/Vol]134 mg/dLNoCentervilleComment on above:Performed By: #### DATA1C #### [facility] [address] [place] [address] Dr. Bharati AguiarHbA1c (Bld) [Mass fraction]6.3 %Critically high4.5-6.2The [facility] – JacksonComment on above:Performed By: #### DATA1C #### [facility] [address] [place] [address] Dr. Calabrese ChangECHOCARDIO M/2D COMPLETEon 43-58-5514LKISHEGPQF M/2D COMPLETE Patient: PABLO FELIX Exam Date: 04/27/2022 : 1945 Gender:M Ordering : LORA ENGLISH Admission #: [id number] Family : DR JAMAR FALL D.O. Order #: [id number] CLICK HERE TO VIEW EXAM ECHOCARDIOGRAM REPORT [...] by: Faizan Carreon M.D. on 04/28/2022 at 19:09A[facility] Health SystemGLYCOHEMOGLOBIN A1Con 69-85-3125SWD RECOMMENDATIONSEE [facility] HospitalComment on above:Result Comment: ADA RECOMMENDED LIMIT 4.0 - 6.0 ADA THERAPEUTIC TARGET < 7.0 ACTION SUGGESTED > 7.0Performed By: #### DATA1C ####[facility] [address] [address]DrJunior AguiarGlucose [Mass/Vol]137 mg/dLAdena Health System Comment on above:Performed By: #### DATA1C ####[facility] [address] [address]Dr. Bharati AguiarHbA1c (Bld) [Mass fraction] 6.4 %Critically high4.5-6.2The [facility] – JacksonComment on above:Performed By: #### DATA1C ####[facility] [address] [address]Dr. Bharati Muro BONE SC WH BODYon 05-04-8782AE BONE SC BODYWHOLE BODY RADIONUCLIDE BONE SCAN: COMPARISON: CT of the chest, abdomen, and pelvis dated 11/05/2021 HISTORY: Prostate carcinoma TRACER DOSE: 25.0 mCi of technetium-99m MDP. FINDINGS: Fairly prominent tracer uptake is seen at the lesser trochanter of the left hip. This is suspicious for metastasis, although it was not obviously included in the lkhwa-um-ghgc of the recent CT. There are foci [...] by: FEDE DE JESUS Date: 2021-11-06 12:45Normal [facility] CHEST W CONon 08-02-5282IE CHEST W CONClinical Indication: Primary malignant neoplasm [...] Electronically authenticated by: LUIZ UMANA Date: 2021-11-05 14:08[facility] Health SystemPROF 14(COMP METB)on 17-81-0278Mhbcwrh [Mass/Vol]3.6 g/dLNormal 3.4-5.0The [facility] on above:Performed By: #### CMP #### [facility] [address] [place] [address] Dr. Bharati AguiarAlbumin/Globulin [Mass ratio]1.1 {ratio}NormalThe [facility] on above:Performed By: #### CMP #### [facility] [address] [place] [address] Dr. Bharati Romero [Catalytic activity/Vol]89 U/EVwbayf82-879Ydc [facility] on above:Performed By: #### CMP #### [facility] [address] [place] [address] Dr. Bharati Burnette [Catalytic activity/Vol]33 U/RIccaaj77-81Rdd [facility]worth HospitalComment on above:Performed By: #### CMP #### [facility] [address] [address] [address] Bharati Marcos gap [Moles/Vol]12.1 mmol/LNormalThe [facility] Comment on above:Performed By: #### CMP #### [facility] [address] [address] [address] Bharati AguiarAST [Catalytic activity/Vol]19 U/ETbnzzq04-65Pcd [facility] JacksonComment on above:Performed By: #### CMP #### [facility] [address] [address] [address] Bharati AguiarBilirubin [Mass/Vol]0.9 mg/dLNormal0.2-1.3TRegency Hospital [facility] Comment on above:Performed By: #### CMP #### [facility] [address] [address] [address] Bharati AguiarCalcium [Mass/Vol]8.8 mg/dLNormal8.5-10.1The [facility] Comment on above:Performed By: #### CMP #### [facility] [address] [address] [address] Bharati AguiarChloride [Moles/Vol]103 mmol/XUoxafu39-137Cmx [facility] Comment on above:Performed By: #### CMP #### [facility] [address] [address] [address] Bharati AguiarCO2 [Moles/Vol]28.6 mmol/GPtjvco76.0-30.0The [facility] Comment on above:Performed By: #### CMP #### [facility] [address] [address] [address] Bharati AguiarCreatinine [Mass/Vol]0.85 mg/dLNormal0.66-1.25The [facility] – JacksonComment on above:Performed By: #### CMP #### [facility] [address] [address] [address] Calabrese ChangEGFR-AF GUAMANIAN>60Normal>=60The [facility] JacksonComment on above:Performed By: #### CMP #### [facility] [address] [address] [address] Bharati MarshGFR-NON AF GUAMANIAN>60Normal>=60The [facility] – JacksonComment on above:Performed By: #### CMP #### [facility] [address] [address] [address] Bharati AguiarGlobulin (S) [Mass/Vol]3.4 g/dLNormEast Liverpool City HospitalComment on above:Performed By: #### CMP #### [facility] [address] [address] [address] Bharati AguiarGlucose [Mass/Vol]127 mg/dLCritically vxqs99-526Dvl [facility] JacksonComment on above:Performed By: #### CMP #### [facility] [address] [place] [address] Dr. Bharati AguiarPotassium [Moles/Vol]4.7 mmol/LNormal3.4-5.0The [facility] Comment on above:Performed By: #### CMP #### [facility] [address] [place] [address] Dr. Bharati AguiarProtein [Mass/Vol]7.0 g/dLNormal6.1-8.2The [facility] Comment on above:Performed By: #### CMP #### [facility] [address] [place] [address] Dr. Bharati AguiarSodium [Moles/Vol]139 mmol/FGmajqi009-306Yhn [facility] Comment on above:Performed By: #### CMP #### [facility] [address] [place] [address] Dr. Bharait AguiarUrea nitrogen [Mass/Vol]18.0 mg/dLNormal7.0-18.0The [facility] JacksonComment on above:Performed By: #### CMP #### [facility] [address] [place] [address] Dr. Bharati AguiarUrea nitrogen/Creatinine [Mass ratio]21.2 mg/mgNormalThPremier Health Upper Valley Medical CenterComment on above:Performed By: #### CMP #### [facility] [address] [place], [place] [address] Dr. Bharati Aguiar Vital Signs Date TimeVital SignValuePerforming JpkpqtnobSgdrytvk31-86-5029 09:27-0400Body equwkf955.91 cmBenjamin Ball DO Work Phone: [facility]10-16-2025 09:27-0400 Body mass index (BMI) [Ratio]32.7 kg/t2Pcjfzuza Ball DO Work Phone: [phone]10-16-2025 09:27-0400 Body iwmmdf91.44 kgBenjamin Ball DO Work Phone: [phone] [place], [place] [address]10-16-2025 09:27-0400 Diastolic blood pvflbkan79 mm[Hg]Jamar Ball DO Work Phone: [phone]10-16-2025 09:27-0400 Heart rate71 /minBenjamin Ball DO Work Phone: [phone] [place], [place] [address]10-16-2025 09:27-0400 Respiratory rate12 /minBenjamin Ball DO Work Phone: [phone] [place], [place] [address]10-16-2025 09:27-0400 Systolic blood rjrufbkj142 mm[Hg]Jamar Ball DO Work Phone: [phone]02-17-2025 09:44-0500 Body .91 cmKettering Health Dayton02-17-2025 09:44-0500Body mass index (BMI) [Ratio]32.4 kg/v0NifgetgepKettering Health Dayton02-17-2025 09:44-0500Body dmpmia80.53 kgKettering Health Dayton02-17-2025 09:44-0500Diastolic blood kalekbde43 mm[Hg][facility] 09-02-2024 09:44-0500Heart rate46 /[facility] 09-02-2024 09:44-0500Respiratory rate12 /[facility] 09-02-2024 09:44-0500Systolic blood xyjrkekv699 mm[Hg][facility]01-23-2025 09:07-0500Body bauuoy223.6 cmChristo Howard APRN.[employer] Work Phone: [facility]01-23-2025 09:07-0500Body mass index (BMI) [Ratio]33.82 kg/g7AxunqChristo Howard APRN.[employer] Work Phone: [facility]01-23-2025 09:07-0500Body temperature 97.9 [degF]Christo Howard APRN.[employer] Work Phone: [facility]01-23-2025 09:07-0500Body bkxydw94 kg Christo Howard APRN.[employer] Work Phone: [facility]01-23-2025 09:07-0500Diastolic blood tvktdshi57 mm[Hg]Christo Howard APRN.[employer] Work Phone: [facility]01-23-2025 09:07-0500Heart rate57 /min Christo Howard APRN.[employer] Work Phone: [facility]01-23-2025 09:07-0500Respiratory rate 16 /minChristo Howard APRN.[employer] Work Phone: [facility]01-23-2025 09:07-7004EqR5% (BldA) [Mass fraction]99 %Christo Howard APRN.[employer] Work Phone: [facility]01-23-2025 09:07-0500Systolic blood higvdtrc562 mm[Hg]Christo Howard APRN.[employer] Work Phone: [facility]11-25-2024 14:25-0500Body .91 cmKettering Health Dayton11-25-2024 14:25-0500Body mass index (BMI) [Ratio]32.8 kg/s5SxhhxolpyKettering Health Dayton11-25-2024 14:25-0500Body dkicyx38.55 kgKettering Health Dayton11-25-2024 14:25-0500Diastolic blood lzihzlht99 mm[Hg][facility]11-25-2024 14:25-0500 Heart rate61 /[facility]11-25-2024 14:25-0500 Respiratory rate12 /[facility]11-25-2024 14:25-0500 Systolic blood nasividx871 mm[Hg][facility]10-24-2024 08:52-0400Body mass index (BMI) [Ratio]32.79 kg/h0OinhxMarco A Esqueda MD Work Phone: [facility]10-24-2024 08:52-0400Body temperature 97.3 [degF]Marco A Esqueda MD Work Phone: [facility]10-24-2024 08:52-0400Body mkerem83.1 kgMarco A Esqueda MD Work Phone: [facility]10-24-2024 08:52-0400Diastolic blood mwrvbhoe37 mm[Hg]Marco A Esqueda MD Work Phone: [facility]10-24-2024 08:52-0400Heart rate62 /min Marco A Esqueda MD Work Phone: [facility]10-24-2024 08:52-0400Respiratory rate 16 /minMarco A Esqueda MD Work Phone: [facility]10-24-2024 08:52-9995YcD3% (BldA) [Mass fraction]99 %Marco A Esqueda MD Work Phone: [facility]10-24-2024 08:52-0400Systolic blood bmlydcah692 mm[Hg]Marco A Esqueda MD Work Phone: [facility]10-04-2024 08:15-0400Blood Pressure LocationAnthony SCRUGGS [facility]10-04-2024 08:15-0400Body vnizvvzjywj68.6 [degF]Anthony SCRUGGS [facility]10-04-2024 08:15-0400Diastolic blood yrpsubak21 mm[Hg]Anthony SCRUGGS [facility]10-04-2024 08:15-0400Heart rate64 /minAnthony SCRUGGS [facility]10-04-2024 08:15-0400Respiratory rate17 /minAnthony SCRUGGS [facility]10-04-2024 08:15-0400Systolic blood vuilzeyz841 mm[Hg]Anthony SCRUGGS [facility]09-10-2024 08:37-0400Body huhzmk191.91 [facility] 08:37-0400Body mass index (BMI) [Ratio]33 kg/j7DkuzzvmulK[facility]09-10-2024 08:37-0400Body ttwsea71.12 kg[facility]09-10-2024 08:37-0400Diastolic blood oglzxjtw16 mm[Hg] [facility]09-10-2024 08:37-0400Heart rate52 /[facility]09-10-2024 08:37-0400Respiratory rate12 /[facility]09-10-2024 08:37-0400Systolic blood neizlbpj469 mm[Hg] [facility]07-19-2024 11:06-0400Body wixtyw468.6 Dara Rajan 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.[employer] Work Phone: [facility]07-19-2024 11:06-0400Body mass index (BMI) [Ratio]33.36 kg/u8GuierLynne Rajan APRN.[employer] Work Phone: [facility]07-19-2024 11:06-0400Body temperature 97.3 [degF]Lynne Rajan 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.[employer] Work Phone: [facility]07-19-2024 11:06-0400Body bhfoht15.7 kgKalaagapito Satinder ESPINOZAN.[employer] Work Phone: [facility]07-19-2024 11:06-0400Diastolic blood rqohhlhk61 mm[Hg]Lynne Rajan 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.[employer] Work Phone: [facility]07-19-2024 11:06-0400Heart rate52 /min Lynne Rajan 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.[employer] Work Phone: [facility]07-19-2024 11:06-0400Respiratory rate 16 /minErniharika Rajan 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.[employer] Work Phone: [facility]07-19-2024 11:06-7459NtI5% (BldA) [Mass fraction]98 %Lynne Rajan 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.[employer] Work Phone: [facility]07-19-2024 11:06-0400Systolic blood guowvlyc134 mm[Hg]Lynne Rajan 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.[employer] Work Phone: [facility]05-09-2024 08:38-0400Body jcbgaj183.91 [facility]05-09-2024 08:38-0400Body mass index (BMI) [Ratio]33.2 kg/t3NldwweallK[facility]tering [facility]05-09-2024 08:38-0400Body gpoyby64.8 kg[facility]05-09-2024 08:38-0400Diastolic blood yikjpblg73 mm[Hg][facility]05-09-2024 08:38-0400 Heart rate48 /[facility]05-09-2024 08:38-0400 Respiratory rate12 /[facility]05-09-2024 08:38-0400 Systolic blood puepugrm055 mm[Hg][facility]04-18-2024 09:14-0400Body sturdj207.6 cmChristo Howard APRN.[employer] Work Phone: [facility]04-18-2024 09:14-0400Body temperature 97.81 [degF]Christo Howard 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.[employer] Work Phone: [facility]04-18-2024 09:14-0400Body .9 kgChristo Howard 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.[employer] Work Phone: [facility]04-18-2024 09:14-0400Diastolic blood irppsbpb74 mm[Hg]Christo Howard 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.[employer] Work Phone: [facility]04-18-2024 09:14-0400Heart rate56 /min Christo Howard 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.[employer] Work Phone: [facility]04-18-2024 09:14-0400Respiratory rate 16 /minChristo Howard 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.[employer] Work Phone: [facility]04-18-2024 09:14-3664CpY7% (BldA) [Mass fraction]97 %Christo Howard 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.[employer] Work Phone: [facility]04-18-2024 09:14-0400Systolic blood qjegatwt541 mm[Hg]Christo Howard 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.[employer] Work Phone: [facility]04-05-2024 09:05-0400Blood Pressure LocationPabj SCRUGGS [facility]04-05-2024 09:05-0400Diastolic blood dtjytqhs61 mm[Hg]Anthony SCRUGGS [facility]04-05-2024 09:05-0400Heart rate53 /minAnthony SCRUGGS [facility]04-05-2024 09:05-0400Respiratory rate16 /minAnthony SCRUGGS [facility]04-05-2024 09:05-0400Systolic blood bhorxdzn972 mm[Hg]Anthony SCRUGGS [facility]02-27-2024 14:13-0500Body jznnew057.91 cm[facility]02-27-2024 14:13-0500Body mass index (BMI) [Ratio]33.4 kg/r0WpxfyetiaK[facility]tering Health [facility]02-27-2024 14:13-0500Body ebsxqs12.42 kg[facility]02-27-2024 14:13-0500Diastolic blood rjaemsmd15 mm[Hg] [facility]02-27-2024 14:13-0500Heart rate56 /[facility]02-27-2024 14:13-0500Respiratory rate12 /[facility]02-27-2024 14:13-0500Systolic blood hptwelxe942 mm[Hg] [facility]02-08-2024 08:30-0500Body .91 cm Jamar Ball Other [employer] Other 02-08-2024 08:30-0500Body mass index (BMI) [Ratio] 34.08 kg/h1Eryuaobd Ball Other [address] Other 02-08-2024 08:30-0500Body mqqzza91.25 kgBenjamin Ball Other [address] Other 02-08-2024 08:30-0500Diastolic blood mm[Hg] Jamar Ball Other [employer] Other 02-08-2024 08:30-0500Respiratory rate12 /minBenjamin Ball Other [employer] Other 02-08-2024 08:30-0500Systolic blood fudaxwdl470 mm[Hg] Jamar Ball Other [employer] Other 11-14-2023 15:00-0500Body ibpswq116.91 cmBenjamin Ball Other [employer] Other 11-14-2023 15:00-0500Body mass index (BMI) [Ratio] 32.84 kg/a2Tyuwxxqe Ball Other [employer] Other 11-14-2023 15:00-0500Body rwnirz84.71 kgBenjamin Ball Other [employer] Other 11-14-2023 15:00-0500Diastolic blood dsdxbueb22 mm[Hg] Jamar Ball Other [employer] Other 11-14-2023 15:00-0500Respiratory rate12 /minBenjamin Ball Other [employer] Other 11-14-2023 15:00-0500Systolic blood sytdxkjv096 mm[Hg] Jamar Ball Other [employer] Other 10-16-2023 09:45-0400Body .91 cmBenjamin Ball Other [employer] Other 10-16-2023 09:45-0400Body mass index (BMI) [Ratio] 32.14 kg/o7Edymrdok Ball Other [employer] Other 10-16-2023 09:45-0400Body scigim55.72 kgBenjamin Ball Other [employer] Other 10-16-2023 09:45-0400Diastolic blood pjulcqjb45 mm[Hg] Jamar Ball Other [employer] Other 10-16-2023 09:45-0400Respiratory rate12 /minBenjamin Ball Other [facility] [employer] Other 10-16-2023 09:45-0400Systolic blood vyappunn432 mm[Hg] Jamar Fall Other [employer] Other 10-12-2023 09:23-0400Diastolic blood xcogegnn13 mm[Hg] Christo Howard APRN.[employer] Work Phone: [facility]10-12-2023 09:23-0400Heart rate50 /min Christo Howard APRN.[employer] Work Phone: [facility]10-12-2023 09:23-0400Systolic blood qamgcgti619 mm[Hg]Christo Howard APRN.[employer] Work Phone: [facility]10-12-2023 09:20-0400Body gibluf802.6 cmChristo Howard APRN.[employer] Work Phone: [facility]10-12-2023 09:20-0400Body temperature 97 [degF]Christo Howard APRN.[employer] Work Phone: [facility]10-12-2023 09:20-0400Body lyqjuz56.53 kgChristo Howard APRN.[employer] Work Phone: [facility]10-12-2023 09:20-0400Respiratory rate 16 /minChristo Howard APRN.[employer]ACH Work Phone: [facility]10-12-2023 09:20-4752PeN8% (BldA) [Mass fraction]100 %Christo Howard APRN.[employer] Work Phone: [facility]10-02-2023 08:45-0400Blood Pressure Fe SCRUGGS [facility]10-02-2023 08:45-0400Diastolic blood zoloiflr68 mm[Hg]Anthony SCRUGGS [facility]10-02-2023 08:45-0400Heart rate62 /Rema SCRUGGS [facility]10-02-2023 08:45-0400Respiratory rate16 /minAnthony SCRUGGS [facility]10-02-2023 08:45-0400Systolic blood qddfidwd007 mm[Hg]Anthony SCRUGGS [facility]09-20-2023 13:45-0400Body dgonou663.91 cmBenjamin Ball Other [address] Other 09-20-2023 13:45-0400Body mass index (BMI) [Ratio] 32.46 kg/d4Yleqswsv Ball Other [employer] Other 09-20-2023 13:45-0400Body xshfoy74.63 kgBenjamin Ball Other [employer] Other 09-20-2023 13:45-0400Diastolic blood jlouqxxa97 mm[Hg] Jamar Ball Other [address] Other 09-20-2023 13:45-0400Respiratory rate12 /minBenjamin Ball Other [employer] Other 09-20-2023 13:45-0400Systolic blood axhoewwm588 mm[Hg] Jamar Ball Other [employer] Other 08-30-2023 08:45-0400Body ryvxzp581.91 cmBenjamin Ball Other [employer] Other 08-30-2023 08:45-0400Body mass index (BMI) [Ratio] 32.81 kg/w9Lmebenca Ball Other [employer] Other 08-30-2023 08:45-0400Body fnedpz53.62 kgBenalfie Ball Other [employer] Other 08-30-2023 08:45-0400Diastolic blood itdockjd88 mm[Hg] Jamar Ball Other [employer] Other 08-30-2023 08:45-0400Respiratory rate12 /minBenalfie Fall Other [employer] Other 08-30-2023 08:45-0400Systolic blood mqwavptl653 mm[Hg] Jamar Ball Other [employer] Other 07-20-2023 09:32-0400Body ngofae439.6 cmMarco A Esqueda MD Work Phone: [facility]07-20-2023 09:32-0400Body temperature 97.2 [degF]Marco A Esqueda MD Work Phone: [facility]07-20-2023 09:32-0400Body yzbent01.62 kgMarco A Esqueda MD Work Phone: [facility]07-20-2023 09:32-0400Diastolic blood mtphxdeq29 mm[Hg]Marco A Esqueda MD Work Phone: [facility]07-20-2023 09:32-0400Heart rate50 /min Marco A Esqueda MD Work Phone: [facility]07-20-2023 09:32-0400Respiratory rate 16 /minMarco A Esqueda MD Work Phone: [facility]07-20-2023 09:32-0943KiK0% (BldA) [Mass fraction]97 %Marco A Esqueda MD Work Phone: [facility]07-20-2023 09:32-0400Systolic blood pnzolkyg553 mm[Hg]Marco A Esqueda MD Work Phone: [facility]04-27-2023 09:30-0400Body egnnqy011.6 cmChristo Howard APRN.[employer] Work Phone: [facility]04-27-2023 09:30-0400Body temperature 97.11 [degF]Christo Howard APRN.[employer] Work Phone: [facility]04-27-2023 09:30-0400Body ijqipn12.44 kgChristo Howard APRN.[employer] Work Phone: [facility]04-27-2023 09:30-0400Diastolic blood cxmytfos57 mm[Hg]Christo Howard APRN.[employer] Work Phone: [facility]04-27-2023 09:30-0400Heart rate54 /min Christo Howard APRN.[employer] Work Phone: [facility]04-27-2023 09:30-0400Respiratory rate 16 /minChristo Howard APRN.[employer] Work Phone: [facility]04-27-2023 09:30-8208ZhM9% (BldA) [Mass fraction]98 %Christo Howard APRN.[employer] Work Phone: [facility]04-27-2023 09:30-0400Systolic blood mm[Hg]Christo Howard APRN.[employer] Work Phone: [facility]03-03-2023 08:30-0500Body owtnlm920.91 cmBenQbaka Other [place] [employer] Other 03-03-2023 08:30-0500Body mass index (BMI) [Ratio] 33.16 kg/w9Kpbbfwyw Ball Other [employer] Other 03-03-2023 08:30-0500Body qwyrai33.62 kgBenjamin Ball Other [employer] Other 03-03-2023 08:30-0500Diastolic blood nzeddgle89 mm[Hg] Jamar Ball Other [employer] Other 03-03-2023 08:30-0500Respiratory rate12 /minBenjamin Ball Other [employer] Other 03-03-2023 08:30-0500Systolic blood oghvxwwh078 mm[Hg] Jamar Ball Other [employer] Other 02-24-2023 08:30-0500Body .91 cmBenjamin Ball Other [employer] Other 02-24-2023 08:30-0500Body mass index (BMI) [Ratio] 33.45 kg/d2Hhlpfbfq Ball Other [employer] Other 02-24-2023 08:30-0500Body laagks36.44 kgBenjamin Ball Other [employer] Other 02-24-2023 08:30-0500Diastolic blood pcpqoeva10 mm[Hg] Jamar Ball Other [employer] Other 02-24-2023 08:30-0500Respiratory rate12 /minBenjamin Ball Other [employer] Other 02-24-2023 08:30-0500Systolic blood siacatsj826 mm[Hg] Jamar Ball Other [facility] [employer] Other 02-24-2023 07:30-0500Body .91 cmBenjajennifer Ball Other [employer] Other 02-24-2023 07:30-0500Body mass index (BMI) [Ratio] 33.45 kg/k4Kschlbco Ball Other [place] [employer] Other 02-24-2023 07:30-0500Body denezt54.44 kgBenalfie Ball Other [facility] [employer] Other 02-24-2023 07:30-0500Diastolic blood usqldiul81 mm[Hg] Jamar Fall Other [place] [employer] Other 02-24-2023 07:30-0500Respiratory rate12 /minBenalfie Ball Other [place] [employer] Other 02-24-2023 07:30-0500Systolic blood mm[Hg] Jamar Fall Other [place] [employer] Other 01-26-2023 09:24-0500Body leqqqu619.6 cmMarco A Esqueda MD Work Phone: [facility]01-26-2023 09:24-0500Body temperature 97 [degF]Marco A Esqueda MD Work Phone: [facility]01-26-2023 09:24-0500Body .44 kgMarco A Esqueda MD Work Phone: [facility]01-26-2023 09:24-0500Diastolic blood ucyvszjr71 mm[Hg]Marco A Esqueda MD Work Phone: [facility]01-26-2023 09:24-0500Heart rate53 /min Marco A Esqueda MD Work Phone: [facility]01-26-2023 09:24-0500Respiratory rate 16 /minMarco A Esqueda MD Work Phone: [facility]01-26-2023 09:24-2810CeO9% (BldA) [Mass fraction]97 %Marco A Esqueda MD Work Phone: [facility]01-26-2023 09:24-0500Systolic blood nwveptpv190 mm[Hg]Marco A Esqueda MD Work Phone: [facility]01-05-2023 15:30-0500Body .91 cmBenjamin Ball Other [address] Other 01-05-2023 15:30-0500Body mass index (BMI) [Ratio] 34.18 kg/w2Ebahineg Ball Other [employer] Other 01-05-2023 15:30-0500Body tmibds40.52 kgBenjamin Ball Other [address] Other 01-05-2023 15:30-0500Diastolic blood bkdllzsy43 mm[Hg] Jamar Ball Other [address] Other 01-05-2023 15:30-0500Respiratory rate16 /minBenjamin Ball Other [employer] Other 01-05-2023 15:30-0500Systolic blood bqvxviez167 mm[Hg] Jamar Ball Other [employer] Other [id number] 09:07-0400[facility]10-28-2022 09:07-0400Diastolic blood cntcpxta09 mm[Hg]Anthonycindy SCURGGS [facility]10-28-2022 09:07-0400Heart rate55 /minPatrick SCRUGGS [facility]10-28-2022 09:07-0400Respiratory rate16 /minPatrick SCRUGGS [facility]10-28-2022 09:07-0400Systolic blood mm[Hg]Anthony SCRUGGS [facility]10-27-2022 10:41-0400Body plbgwkmfylo01.81 [degF]LUAN Khan MD Work Phone: [facility]10-27-2022 10:41-0400Body blcymc27.07 kgNA Bill JAMES Work Phone: [facility]10-27-2022 10:41-0400Diastolic blood btydlqmp52 mm[Hg]LUAN Khan MD Work Phone: [facility]10-27-2022 10:41-0400Heart rate51 /min LUAN Khan MD Work Phone: [facility]10-27-2022 10:41-0400Respiratory rate 18 /NathalieLUAN Khan MD Work Phone: [facility]10-27-2022 10:41-0832NiM8% (BldA) [Mass fraction]99 %LUAN Khan MD Work Phone: [facility]10-27-2022 10:41-0400Systolic blood mm[Hg]LUAN Khan MD Work Phone: [facility]08-04-2022 09:36-0400Body fmysdc236.6 cmMarco A Esqueda MD Work Phone: [facility]08-04-2022 09:36-0400Body temperature 97.9 [degF]Marco A Esqueda MD Work Phone: [facility]08-04-2022 09:36-0400Body .07 kgMarco A Esqueda MD Work Phone: [facility]08-04-2022 09:36-0400Diastolic blood obsoytvu23 mm[Hg]Marco A Esqueda MD Work Phone: [facility]08-04-2022 09:36-0400Heart rate63 /min Marco A Esqueda MD Work Phone: [facility]08-04-2022 09:36-0400Respiratory rate 16 /minMarco A Esqueda MD Work Phone: [facility]08-04-2022 09:36-1810IyV2% (BldA) [Mass fraction]99 %Marco A Esqueda MD Work Phone: [facility]08-04-2022 09:36-0400Systolic blood udwcxrtl409 mm[Hg]Macro A Esqueda MD Work Phone: [facility]05-05-2022 10:50-0400Body temperature 97.7 [degF][facility]/[place] Work Phone: [facility]05-05-2022 10:50-0400Diastolic blood blpyuzwt82 mm[Hg][facility] Work Phone: [facility]05-05-2022 10:50-0400Heart rate60 /min [facility]/[place] Work Phone: [facility]05-05-2022 10:50-0400Respiratory rate 18 /minLab/[facility] Work Phone: [facility]05-05-2022 10:50-9998CkM8% (BldA) [Mass fraction]95 %[facility]/[place] Work Phone: [facility]05-05-2022 10:50-0400Systolic blood mm[Hg][facility] [place] Work Phone: [facility]04-28-2022 13:58-0400Body mabmex118.6 cmMarco A Esqueda MD Work Phone: [place] [address]-28-2022 13:58-0400Body temperature 97.39 [degF]Marco A Esqueda MD Work Phone: [facility]04-28-2022 13:58-0400Body fxjtis65.97 kgMarco A Eqsueda MD Work Phone: [place] [address]-28-2022 13:58-0400Diastolic blood rrrqlemm84 mm[Hg]Marco A Esqueda MD Work Phone: [facility]04-28-2022 13:58-0400Heart rate68 /min Marco A Esqueda MD Work Phone: [facility]04-28-2022 13:58-0400Respiratory rate 16 /minMarco A Esqueda MD Work Phone: [place] [address]-28-2022 13:58-5118NxM3% (BldA) [Mass fraction]98 %Marco A Esqueda MD Work Phone: [facility]04-28-2022 13:58-0400Systolic blood irsyyljk962 mm[Hg]Marco A Esqueda MD Work Phone: [facility]04-25-2022 13:03-0400Blood Pressure LocationPabj SCRUGGS [facility] 04-25-2022 13:03-0400Diastolic blood luueajrc99 mm[Hg] Anthony SCRUGGS [facility] 04-25-2022 13:03-0400Heart rate61 /minPabj SCRUGGS [facility] 04-25-2022 13:03-0400Systolic blood rhpyyyss027 mm[Hg] Anthony SCRUGGS [facility] Encounters Encounter DateEncounter TypeCare ProviderFacilityStart: 32-23-4665rbtyvdcxoa Anthony SCRUGGSFacility:[facility]ueStart: 97-73-3947cpimlxrhdbXjgsjwa R WATERS Facility:[facility]vueStart: 05-22-2025 End: 16-67-7268uzjbakcwjoMEXTCJZC E BALLFacility:[place]alt[place]art: 05-15-2025 End: 57-93-4409dqejtszhrvFJUFPURR E BALLFacility:[place]Healt[facility]art: 05-01-2025 End: 16-36-5861yvozaptnuqWgzolist Ball DO Work Phone: [facility] Work Phone: Start: 05-01-2025 End: 92-74-3278Mzwfscc encounter procedureBenjamin Ball DO-[facility] Work Phone: Start: 03-31-2025 End: 82-06-6220ovavkqhwaqCcjslfq R WATERSFacility:[facility] Pinevilletart: 03-31-2025 End: 12-84-8502Vczripx encounter procedureAnthony SCRUGGS [facility] start: 79-74-1400Rao-patient / Non-visitOutside Provider-[facility] Work Phone: Start: 09-95-7573Qlf-patient / Non-visitMelgena Quiroz CNP-[facility] Work Phone: Start: 03-20-2025 End: 99-40-0965naidbmjiceIDQPEYQ [facility] Cent[facility]art: 03-20-2025 End: 21-31-0981Ekxyvlxzf for general adult medical examination without abnormal findingsBROOKDALE UNIVERSITY HOSPITAL AND MEDICAL CENTERGENA [facility] CenterStart: 02-25-2025 End: 51-38-5338Xuhomk flowsheetNatalie A Felter 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[employer] Work Phone: [facility] DermatologyStart: 02-25-2025 End: 11-99-5596Carlma flowsheetNatalie A Felter 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[employer] Work Phone: [facility] DermatologyStart: 02-25-2025 End: 36-17-2876Jolnco outpatient visit 15 minutesNatalie A Felter 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[employer] Work Phone: noMS Krishnan DermatologyComment on above:Seborrheic keratosis (Primary Dx); Melanocytic nevus of trunk; Actinic keratosis; Lentigines; Psoriasis vulgaris ; History of SCC (squamous cell carcinoma) of skinStart: 02-20-2025 End: 07-26-6623jakiikzxabKDXYDVXM E BALLFacility:[place]Healthtart: 02-17-2025 End: 61-81-9962veujzgudpfBtldlqp V[place] Giedrabrianna JAMESFacility:[facility] Start: 08-81-2813Pqh-patient / Non-visitMarco A Esqueda MD-[facility] Work Phone: Start: 2025 End: 42-39-6621zdgiopuvpsQQWCY ABHYANKARFacility:[facility] HospitalStart: 11-07-2024 End: 81-60-8819tvezyqrbmiWWSBSKwadwo ESQUEDAFacility:[facility] Start: 10-31-2024 End: 00-97-9763taewdftmjnJQJXJFEA E BALLFacility:[place]Healthtart: 10-21-2024 End: 73-63-4132quozipkcraYpleqrh Vmarioautamanda Sethedcelia JAMESFacility:[facility] [place] Start: 10-07-2024 End: 64-30-8665uhxbyaszdaNrskruk R WATERSFacility:EU Jentart: 10-07-2024 End: 48-92-6255phjwgzptewFoafbrnSri Herrera MDFacility:[facility] Start: 09-02-2024 End: 29-02-7539wvnyqwzzfaRtwqkgswmWayne Hospital Work Phone: Start: 09-02-2024 End: 05-91-1116Zeoyogl encounter procedureFormerly [facility] Work Phone: Start: 04-74-2850Ntyujwd encounter procedurePike Community Hospitaltart: 08-08-2024 End: 60-53-3274rajtbgssrxMcj/[place] Work Phone: Hematology/OncologyComment on above:Malignant neoplasm of prostate (HCC) (Primary Dx)Malignant neoplasm of prostate (HCC) (Primary Dx); Essential hypertension; 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, unspecified vessel or lesion type; Type 2 diabetes mellitus without complication, without long-term current use of insulin (HCC)Start: 08-08-2024 End: 31-98-5699Rhfsgzn encounter procedureChristo Howard APRN.CNP Work Phone: Hematology/OncologyStart: 08-01-2024 End: 63-36-9386dmhpczntxhQESOAEIK E BALLFacility:[place]Healthtart: [id number]-patient / Non-visitFormerly [facility], [facility] Work Phone: Start: 07-25-2024 End: 21-39-3920Ktlwfgfub encounterMarco A Esqueda MD Work Phone: [facility] LaboratoryComment on above:Lab OrdersStart: 06-10-2024 End: 85-21-3480Npgteiq encounter procedureFormerly [facility], [facility] [facility] Work Phone: Start: 05-09-2024 End: 74-47-5487ajebtpughtDxg/[place] Work Phone: Hematology/OncologyComment on above:Malignant neoplasm of prostate (HCC) (Primary Dx)Start: 05-09-2024 End: 02-97-7350Eigoqkw encounter Jovan Esqueda MD Work Phone: Hematology/OncologyStart: 05-08-2024 End: 76-81-3572NiryopNtmvkwf McKitrick [facility] Work Phone: [facility] PharmacyComment on above: Refill RequestStart: 04-19-2024 End: 60-11-8257zpcaammbhsTxfjvvq R WATERSFacility:EU BellevueStart: 04-19-2024 End: 51-03-7763Ghkfzmu encounter Magi SCRUGGS [facility] Armando start: 04-01-2024 End: 20-33-6809GtlyhlYnoxjChalo Esqueda MD Work Phone: Hematology/OncologyComment on above:Refill Request Start: 04-01-2024 End: 63-12-1493TlallfEagoelg [facility] Work Phone: [facility] -3Comment on above:Refill Request Start: 03-26-2024 End: 78-56-9064mrsdapsytvOaxsxwwwrWayne Hospital Work Phone: Start: 03-26-2024 End: 09-74-7151Uhprnkj encounter procedureFormerly [facility] Work Phone: Start: 02-29-2024 End: 88-58-4800xmmkwhqaxpGWAWVYAFXCQ HASSETTNot AvailableStart: 02-26-2024 End: 43-87-2370mbhaclnifwMLICUHS A FELTERNot AvailableStart: 02-02-2024 End: 61-27-8091gtqopzyaiyMqz/[place] Work Phone: Hematology/OncologyComment on above:Malignant neoplasm of prostate (HCC) (Primary Dx)Start: 02-02-2024 End: 98-04-2628Jfrmocu encounter Phong Rajan APRN.[employer] Work Phone: Hematology/OncologyComment on above:Malignant neoplasm of prostate (HCC) (Primary Dx)Start: 45-39-2565Wur-patient / Non-visitFormerly [facility] Work Phone: Start: 11-23-2023 End: 57-01-2851gfzubthxlvMoylsnsuiWayne Hospital Work Phone: Start: 11-23-2023 End: 50-79-1817Fudppxo encounter procedureFormerly [facility] Work Phone: Start: 11-02-2023 End: 41-61-7385rfsmskuwqtUsv/[place] Work Phone: Hematology/OncologyComment on above:Malignant neoplasm of prostate (HCC) (Primary Dx)Malignant neoplasm of prostate (HCC) (Primary Dx); Essential hypertension; 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, unspecified vessel or lesion type; Type 2 diabetes mellitus without complication, without long-term current use of insulin (HCC); Lesion of skin of right ear; Abdominal discomfortStart: 11-02-2023 End: 69-29-3701Vjtsvvz encounter Cecilia Howard APRN.CNP Work Phone: SANDUSKYStart: 51-37-8032Gva-patient / Non-visit [facility] Work Phone: Start: 10-20-2023 End: 31-58-1756Jhtrfsg encounter procedureAnthony SCRUGGS [facility] start: 64-50-9493Eyv-patient / Non-visitFormerly [facility] Work Phone: Start: 09-28-2023 End: 82-73-8085rvfgwgpmdfEGRTDA E FLEMINGNot AvailableStart: 09-12-2023 End: 16-23-4922Usmkpkv encounter procedureUnc Medical Centermemo [facility] Work Phone: Start: 44-10-6107Mhn-patient / Non-visitAracelis [facility]ician [facility] Professional [employer] Work Phone: Start: 43-57-4467Nckdzs flowsheetNatalie A Felter 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[employer] Work Phone: noms SWS DERMStart: 04-34-4655Thkwgw flowsheetNatalie A Felter 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ASSI[employer] SO[employer] COACH Work Phone: noms SWS DERMStart: 08-28-2023 End: 16-62-9409Qlfelia encounter procedureNatalie A Felter 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[employer]SI[employer] CO[employer] Work Phone: noms SWS DERMComment on above:Neoplasm of unspecified behavior of bone, soft tissue, and skin; Actinic keratosisStart: 08-28-2023 End: 74-09-8816evqtmmehxwDYYXKOA A FELTERNot AvailableStart: 08-24-2023 End: 46-15-7497paovdnjnkeSmmtpqqx Ball Other [address] Other Start: 45-91-0218Czjcmzd encounter procedureBenjamin BallGREYG [facility] ClinicStart: 08-04-2023 End: 03-80-8249bixeouwtwgKosylihh Ball Other mVisum Other Start: 28-68-1733Fgiuilxni encounterBenjamin BallFPG [facility] ClinicStart: 41-38-4922Maadesbha encounterBenjamin BallFPG [facility] ClinicStart: 06-05-2023 End: 16-76-7211qfptblfcdaZAKUID H [facility] HospitalCelePost [employer] Other Start: 05-30-2023 End: 58-44-9306oonorttljvMxuzmgfs Ball Other [address] Other Start: 03-85-3090Yiisdh outpatient visit 15 minutes [facility] ClinicStart: 05-01-2023 End: 18-39-4265ljmqszlcgzZcrrepxq Ball Other [address] Other Start: 85-21-7261Bulxrx outpatient visit 15 minutes [facility] ClinicStart: 08-30-9010Gkqcziqff encounterBenjajennifer [facility] ClinicStart: 04-27-2023 End: 90-47-1280vaethmjpsxShz/[place] Work Phone: Hematology/OncologyComment on above:Malignant neoplasm of prostate (HCC) (Primary Dx)Malignant neoplasm of prostate (HCC) (Primary Dx); 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, unspecified vessel or lesion type; Essential hypertension; Type 2 diabetes mellitus without complication, without long-term current use of insulin (HCC)Start: 04-27-2023 End: 58-89-5490Cnnhdpv encounter procedureChristo Howard APRN.CNP Work Phone: SANDUSKYStart: 04-25-2023 End: 97-94-2068cpkhwbrvsnMpvzzrsq Ball Other [employer]Visum Other Start: 28-86-0971Ibdkneats encounterBenalfie Fall Medical ClinicStart: 04-18-2023 End: 79-78-0808bdedwosqvxGsviuyni Ball Other [address] Other Start: 91-52-6220Plaznvuju encounterBenalfie Fall Medical ClinicStart: 04-17-2023 End: 68-77-1570Viorgoc encounter procedureAnthony SCRUGGS [facility] start: 04-12-2023 End: 05-03-5334uzkwwhxsenSnmvltnm Ball Other [address] Other Start: 32-41-2604Zoidzvrrh encounterBenjamin BallFPG [facility] ClinicStart: 04-06-2023 End: 72-75-8315zcqrxcxfgjAjgmhzqo Ball Other [address] Other Start: 94-69-7280Uazjjdyac encounterBenjamin BallFPG [facility] ClinicStart: 04-05-2023 End: 54-92-6781bykmfxgjddTzjblwfj Ball Other [address] Other Start: 41-44-0005Kftxkq outpatient visit 15 minutes Jamar BallFPG [facility] ClinicStart: 71-24-7372Qsyzvdbzk encounterBenjamin BallFPG [facility] ClinicStart: 03-15-2023 End: 70-65-7649ssqvsfsoycAcidzjqb Ball Other [address] Other Start: 67-23-0501Ajimpa outpatient visit 25 minutes Jamar BallFPG [facility] ClinicStart: 02-05-2023 End: 94-69-3939bqlksakmvlGryfvmam Ball Other [address] Other Start: 38-20-6571Inervxfgl encounterBenjamin BallFPG [facility] ClinicStart: 02-02-2023 End: 25-50-6767ckmbzkynlfKca/[place] Work Phone: Hematology/OncologyComment on above:Malignant neoplasm of prostate (HCC) (Primary Dx)Start: 02-02-2023 End: 17-38-2915Gyeufbt encounter Jovan Esqueda MD Work Phone: SANDUSKYStart: 11-15-2022 End: 60-22-0532aiybcpefmyPzhpldtk Ball Other [address] Other Start: 63-35-4074Cxkwrpydi by computer [facility] ClinicStart: 11-11-2022 End: 21-17-1032prlqbhlaktSgkexjea Ball Other [address] Other Start: 19-71-3589Jmauzhidq by computer linkJamar Fall Medical ClinicStart: 11-10-2022 End: 43-74-2842skhdzezffhQoq/[place] Work Phone: Hematology/OncologyComment on above:Malignant neoplasm of prostate (HCC) (Primary Dx)Malignant neoplasm of prostate (HCC) (Primary Dx); 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, unspecified vessel or lesion type; Essential hypertension; Type 2 diabetes mellitus without complication, without long-term current use of insulin (HCC)Start: 11-10-2022 End: 39-27-1319Hfssvhh encounter procedureChristo Howard APRN.CNP Work Phone: SANDUSKYStart: 10-25-2022 End: 48-04-5178zwhicxoafwLB ANTHONY SCRUGGS .Facility:R9Paldp: 09-16-2022 End: 12-44-3040psymqfzgovQycawcte Ball Other [address] Other Start: 86-41-7545Koafvq outpatient visit 15 minutes Jamar [facility] ClinicStart: 09-09-2022 End: 30-76-8929waiyrvhgykZnlckuee Ball Other [address] Other Start: 72-26-4019Bubvtpt encounter procedureJamar Fall Medical ClinicStart: 09-05-2022 End: 71-31-0654gztmjxnpkgLP NONE LISTED REQUESTFacility:X7Mhlas: 08-11-2022 End: 43-06-4170onpwkntsbvBsn/[place] Work Phone: Hematology/OncologyComment on above:Malignant neoplasm of prostate (HCC) (Primary Dx)Malignant neoplasm of prostate (HCC) (Primary Dx); Bone metastasis (HCC); 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, unspecified vessel or lesion type; Essential hypertension; Type 2 diabetes mellitus without complication, without long-term current use of insulin (HCC)Start: 08-11-2022 End: 34-23-2261Bpunpph encounter procedureMarco A Esqueda MD Work Phone: SANDUSKYStart: 07-21-2022 End: 95-92-3523czwhuswnbtRV [employer] Other Start: 62-42-4363Eodpqv outpatient visit 15 minutes Jamar Juan [facility] ClinicStart: 72-04-5213Kdlwqwp encounter procedure Jamar Juan DavidC[facility] ClinicStart: 59-05-0455Munorwhtf encounterBenjajennifer [facility] ClinicStart: 05-27-2022 End: 30-28-0461xmdbmvxpmyYF NONE LISTED REQUESTFacility:W5Jpgwv: 05-13-2022 End: 60-65-8132Jythxhg encounter procedureAnthony SCRUGGS [facility] start: 05-12-2022 End: 02-47-4668Bofombh encounter procedureZach Khan MD Work Phone: Radiation OncologyComment on above:Malignant neoplasm of prostate (HCC) (Primary Dx)Start: 05-12-2022 End: 16-06-6298gsctzsowefOpd/[place] Work Phone: Hematology/OncologyComment on above:Malignant neoplasm of prostate (HCC) (Primary Dx)Start: 05-05-2022 End: 96-88-4372xpnabilrhwLX ANTHONY SCRUGGS .Facility:J3Axpud: 05-02-2022 Telephone encounterChristo Howard APRN.CNP Work Phone: Hematology/OncologyComment on above:Lab OrdersStart: 04-27-2022 End: 37-45-9431yynxhwcmhfTGWIVZR BOESFacility:T3Crsan: 02-17-2022 End: 59-47-4674hdqiozgijiHdfgh R Murphy MD Work Phone: Hematology/OncologyComment on above:Malignant neoplasm of prostate (HCC) (Primary Dx); Bone metastasis (HCC)Start: 02-17-2022 End: 12-16-9063Hzogepw encounter Jovan Esqueda MD Work Phone: SANDUSKYStart: 01-25-2022 End: 88-84-5834jugzvneeuyNC NONE LISTED REQUESTFacility:N6Sogyw: 12-06-2021 Telephone encounterClementine Aguilar RN Work Phone: Hematology/OncologyComment on above:Care Coordination (Refill Question)Start: 11-18-2021 End: 77-41-4418ejpynbmupqZhe/[place] Work Phone: Hematology/OncologyComment on above:Malignant neoplasm of prostate (HCC) (Primary Dx)Start: 11-11-2021 End: 35-28-4158qzlpobnqlgEyqngYoana Esqueda MD Work Phone: Hematology/OncologyComment on above:Malignant neoplasm of prostate (HCC) (Primary Dx); Bone metastasis (HCC)Start: 11-11-2021 End: 03-98-6865Sevqsae encounter Jovan Esqueda MD Work Phone: SANDUSKYStart: 42-10-3294Leqdxqpgr encounterClementine Aguilar RN Work Phone: Hematology/OncologyComment on above:Care Coordination (Medication Update)Start: 29-91-7465Prqrhdctg encounterClementine Aguilar RN Work Phone: Hematology/OncologyComment on above:Care Coordination (Medication Start Date - Enzalutamide)Start: 11-08-2021 End: 70-07-3583Ypvitdj encounter Magi SCRUGGS [facility] Armando start: 11-05-2021 End: 49-85-7512msrytqumfwNK MARCO A ESQUEDAFacility:Z2Sqyvw: 76-98-7406ogveoprfoa Clementine Aguilar RN Work Phone: Hematology/OncologyComment on above:Oral Anti-cancer Agent Education (Enzalutamide)Start: 17-78-6936Cquwuzxxj encounterAida Luo [facility] Work Phone: Hematology/OncologyComment on above:Medication Update (Xtandi free drug)Care Coordination (Covid Vaccine)Start: 46-10-9225Liwslcnme encounterMarco A Esqueda MD Work Phone: Hematology/OncologyComment on above:Lab OrdersStart: 51-32-2428Qkuuonqok encounterClementine Aguilar RN Work Phone: Hematology/OncologyComment on above:Care Coordination (Testosterone Results)Start: 83-36-1909Futbrcvux encounterClementine Aguilar RN Work Phone: Hematology/OncologyComment on above:Medication Question (Lupron Start Date)Opened In ErrorMedication Authorization (Xtandi) Start: 51-86-4755Geuqv abstractingMarco A Esqueda MD Work Phone: Hematology/OncologyStart: 44-99-5713Jdzkzgoru Gayatri Esqueda MD Work Phone: Hematology/OncologyComment on above:Lab OrdersStart: 35-04-3871Ffgrg health examinationBenjamin Ball Other [employer] Other Procedures DateProcedureProcedure DetailPerforming ClinicianStart: 94-49-8552EJZVJWVURLA SKIN LESIONNatalie A Felter 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[employer]SI[employer] Work Phone: Start: 70-72-0192DLZPIANFPTP SKIN LESIONNatalie A Felter 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[employer]SI[employer]ACH Work Phone: Start: 86-46-3391EEPY / NAIL BIOPSYNatalie A Felter 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ASSI[employer] Work Phone: Start: 28-14-1923Iwpesqcwvaceo of median nervePatrick Medical [facility]velope Start: 27-78-8156WEL screeningDR JAMAR BALLComment on above:Performed By: #### PSAD #### [facility] [address], [place] [address] Dr. Bharati AguiarStart: 17-43-9393ZYZ screeningDR JAMAR BALLComment on above: Performed By: #### PSAD ####[facility] Yes[address] [place], [place] [address]RpDr. Bharati AguiarStart: 37-30-1050Sghwa depression screening assessmentMarco A Esqueda MD Work Phone: Start: 25-20-0551Ajzkw depression screening assessment Clementine Aguilar RN Work Phone: Start: 88-98-8929Pdtgu depression screening assessment Marco A Esqueda MD Work Phone: Start: 28-99-9345Snecupfsrxcenuid procedureWyDocSpera Comment on above:Started on 01/2018 completed 03/30/18 Start: 53-24-0575GmwrzblcdhJadbaiu WATERS Start: 96-50-2179Ouzgtwots for malignant neoplasm of colonJamar Fall Other Start: 64-11-1320Pcwgytp prostatectomyPaStarbaknataliya Medical Envelope Start: 34-61-6934Ihp-surgery evaluationBenate Fall Other Start: 83-45-1915Jdenqwblpmsv cardiovascular examinationBenate Fall Other Start: 76-29-4761Sichjelr artery bypass graftWyDocSpera Start: 79-44-7354Vlcilysritm biopsy of prostate using ultrasound guidanceLabochema Start: 90-56-3160Rivcldjqly studiesPaDocSpera Start: 26-54-4112UyxcapbjqoOcltspy WATERS Start: 10-44-4059RomehualkzLgvwktz WATERS Start: 59-63-8936IvxyluzuhmYkyzltf WATERS appendectomyLabochema ColonoscopyLabochema Depression screeningBenjamin [place] [address] Other Plan of Treatment DateCare ActivityDetailAuthorStart: 16-11-0448Zoozb microalbumin profile DTaP,Tdap,Td Vaccine (6 - Td or Tdap)[facility] Centertart: 40-59-4837Mklwxusu ScreeningDiabetes ScreeningKettering Health Behavioral Medical Centertart: 67-93-3350Niczomqn Screening Diabetes ScreeningKettering Health Behavioral Medical Centertart: 99-10-7809Auqebogn ScreeningDiabetes ScreeningKettering Health Behavioral Medical Centertart: 38-25-7739Qikimkck ScreeningDiabetes Screening [facility] Centertart: 48-35-2420Nryvhhme ScreeningDiabetes ScreeningKettering Health Behavioral Medical Centertart: 02-26-2026 End: 70-02-4980Luaksfo encounter dwjonurbh49/13/2026 10:25 AM EDT Office Visit [facility] [address] [id number] Long Boo, 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ASSI[employer] [address] [place] [address] [facility]E [facility] DermatologyStart: 97-33-3575XNEIGBGT SCREENDIABETES SCREENKettering Health Behavioral Medical Centertart: 11-10-2025 DIABETES SCREENDIABETES SCREENKettering Health Behavioral Medical Centertart: 03-85-6838WPACXHND SCREEN DIABETES SCREENKettering Health Behavioral Medical Centertart: 70-93-8015DVXRSHRN SCREENDIABETES SCREEN [facility] Centertart: 45-08-9541Kdfyoocyj vaccinationInfluenza Vaccine (#1)[facility]OM HealthcareStart: 02-25-2025 End: 75-62-4831Skjpqin encounter huujutlxl14/12/2025 10:20 AM EDT Office Visit [facility] [address] [place], [id number] Long Boo, 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ASSI[employer]ACH [address] [place] [address] ArrivedNOMS HickeyAriella [facility] Comment on above:ArrivedStart: 39-74-6545WOQXOGAL SCREENDIABETES SCREENKettering Health Behavioral Medical Centertart: 15-34-4656YQIJRTFN SCREENDIABETES [facility] Centertart: 11-07-2024 End: 44-50-5650Qwvzon-up encounterHematology/OncologyComment on above:3 month lab follow up with xgeva injStart: 11-06-2024 End: 04-22-0602MXG W Auto Differential panel - BloodCOMPLETE BLOOD COUNT AND DIFFERENTIAL Lab Routine Malignant neoplasm of prostate (HCC) Essential hyp ertension 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, unspecified vessel or lesion type Type 2 diabetes mellitus without complication, without long-term current use of insulin (HCC) Expected: 11/06/2024, Expires: 02/05/2025[facility] Work Phone: Comment on above:Expected: 11/06/2024, Expires: 02/05/2025Start: 11-06-2024 End: 28-09-2312Icyzwdapbkfsg metabolic 2000 panel - Serum or PlasmaCOMPREHENSIVE METABOLIC PANEL Lab Routine Malignant neoplasm of prostate (HCC) Essential hypertension 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, unspecified vessel or lesion type Type 2 diabetes mellitus without complication, without long-term current use of insulin (HCC) Expected: 11/06/2024, Expires: 02/05/2025[facility] ClinicComment on above:Expected: 11/06/2024, Expires: 02/05/2025Start: 11-06-2024 End: 98-89-7915Miqwdnyg specific Ag [Mass/volume] in Serum or PlasmaPROSTATE- SPECIFIC ANTIGEN DIAGNOSTIC Lab Routine Malignant neoplasm of prostate (HCC) Essential hypertension 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, unspecified vesselor lesion type Type 2 diabetes mellitus without complication, without long-term current use of insulin (HCC) Expected: 11/06/2024, Expires: 02/05/2025[facility] ClinicComment on above:Expected: 11/06/2024, Expires: 02/05/2025Start: 10-31-2024 End: 78-65-4179Jxlhlrv encounter /17/2025 9:00 AM EDT Office Visit [facility] [address] [place] [address] [facility]Op[facility] LaboratoryComment on above:labStart: 25-26-5578Rhkec-19 Vaccine ()Covid-19 Vaccine ()[facility] Centertart: 08-08-2024 End: 75-40-3943Ffgkxl-up encounterHematology/OncologyComment on above:3 month lab follow up with xgeva injStart: 08-01-2024 End: 36-56-2563Ixoaflj encounter /16/2025 9:00 AM EST Office Visit [facility] [address] [place] [address] 3 [facility] Comment on above:3 month labsStart: 71-21-6254Ggmfvay Directive Discussion Advance Directive DiscussionKettering Health Behavioral Medical Centertart: 05-09-2024 End: 44-40-0982Ndbjso-up encounterHematology/OncologyComment on above:3 month lab follow up with xgeva injStart: 05-07-2024 End: 69-58-1983Ymdimvh encounter nnarzeluf65/22/2024 9:00 AM EDT Office Visit [facility] [address] [place] [address] 3 month lab follow up with xgeva injNortFormerly [facility] LaboratoryComment on above:3 month lab follow up with xgeva inj Start: 05-03-2024 End: 52-15-8004Hzplved encounter ekdcufzmz86/18/2024 9:00 AM EDT Office Visit [facility] [address] [place] [address] 3 month lab follow up with xgeva injNortFormerly [facility] LaboratoryComment on above:3 month lab follow up with xgeva inj Start: 04-29-2024 End: 82-80-1829UIK W Auto Differential panel - BloodCOMPLETE BLOOD COUNT AND DIFFERENTIAL Lab Routine Malignant neoplasm of prostate (HCC) Expected: , Expires: 07/29/2024[facility] Work Phone: Comment on above:Expected: 04/29/2024, Expires: 07/29/2024Start: 04-29-2024 End: 02-91-0153Lgjlqulduldja metabolic 2000 panel - Serum or PlasmaCOMPREHENSIVE METABOLIC PANEL Lab Routine Malignant neoplasm of prostate (HCC) Expected: 04/29/2024, Expires: 07/29/2024[facility] ClinicComment on above:Expected: 04/29/2024, Expires: 07/29/2024Start: 04-29-2024 End: 99-87-4350Iwcxybwi specific Ag [Mass/volume] in Serum or PlasmaPROSTATE- SPECIFIC ANTIGEN DIAGNOSTIC Lab Routine Malignant neoplasm of prostate (HCC) Expected: 04/29/2024, Expires: 07/29/2024[facility] ClinicComment on above: Expected: 04/29/2024, Expires: 07/29/2024Start: 63-07-1169Zzyjg-19 Vaccine ()Covid-19 Vaccine ()[facility] Centertart: 73-98-9629Sbwlustks vaccinationInfluenza Vaccine (#1)[facility] Centertart: 02-26-2024 End: 63-43-5205Gqjotxb encounter /12/2024 10:10 AM EDT Office Visit [facility] [address] [place] [address] Long Boo APRN-ASSIST[employer] COACH [address] [place] [address] [facility] DERMStart: 11-03-2023 End: 55-70-5432BZC W Auto Differential panel - BloodCOMPLETE BLOOD COUNT AND DIFFERENTIAL Lab Routine Malignant neoplasm of prostate (HCC) Essential hyp ertension 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, unspecified vessel or lesion type Type 2 diabetes mellitus without complication, without long-term current use of insulin (HCC) Lesion of skin of right ear Abdominal discomfort Expected: 11/03/2023, Expires: 02/02/[address] [facility] Work Phone: Comment on above:Expected: 11/03/2023, Expires: 02/02/2024Start: 11-03-2023 End: 98-03-0522Shbskxssmzymp metabolic 2000 panel - Serum or PlasmaCOMPREHENSIVE METABOLIC PANEL Lab Routine Malignant neoplasm of prostate (HCC) Essential hypertension 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, unspecified vessel or lesion type Type 2 diabetes mellitus without complication, without long-term current use of insulin (HCC) Lesion of skin of right ear Abdominal discomfort Expected: 11/03/2023, Expires: 02/02/[address] [facility] Work Phone: Comment on above:Expected: 11/03/2023, Expires: 02/02/2024Start: 11-03-2023 End: 38-39-3195Euvoscef specific Ag [Mass/volume] in Serum or PlasmaPROSTATE- SPECIFIC ANTIGEN DIAGNOSTIC Lab Routine Malignant neoplasm of prostate (HCC) Essential hypertension 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, unspecified vesselor lesion type Type 2 diabetes mellitus without complication, without long-term current use of insulin (HCC) Lesion of skin of right ear Abdominal discomfort Expected: 11/03/2023, Expires: 02/02/[address] [facility] Work Phone: Comment on above:Expected: 11/03/2023, Expires: 02/02/2024Start: 08-28-2023 End: 07-57-3265Clinvrh encounter ekpwbpyka62/12/2024 11:25 AM EST Office Visit [facility] [address] [place] [address] Long Boo 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[employer] [address] [place] [address] ArrivedNOMS SWS DERMComment on above: ArrivedStart: 07-28-2023 End: 71-84-2071NPH W Auto Differential panel - BloodCBC + DIFF Lab Routine Malignant neoplasm of prostate (HCC) 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, unspecified vessel or lesion type Essential hypertension Type 2 diabetes mellitus without complication, without long-term current use of insulin (HCC) Expected: 07/28/2023, Expires: 09/27/2023[facility] Work Phone: Comment on above:Expected: 07/28/2023, Expires: 09/27/2023Start: 07-28-2023 End: 89-06-6608Yzbdjnuqhcpvg metabolic 2000 panel - Serum or PlasmaCOMP METABOLIC PANEL Lab Routine Malignant neoplasm of prostate (HCC) 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, unspecified vessel or lesion type Essential hypertension Type 2 diabetes mellitus without complication, without long-term current use of insulin (HCC) Expected: 07/28/2023, Expires: 09/27/2023[facility] Work Phone: Comment on above:Expected: 07/28/2023, Expires: 09/27/2023Start: 07-28-2023 End: 68-08-2165Vwaqhlgh specific Ag [Mass/volume] in Serum or Plasma PSA/PROSTSPECAG DIAG Lab Routine Malignant neoplasm of prostate (HCC) 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, unspecified vessel or lesion type Essential hypertension Type 2 diabetes mellitus without complication, without long-term current use of insulin (HCC) Expected: 07/28/2023, Expires: 09/27/2023[facility] Work Phone: Comment on above:Expected: 07/28/2023, Expires: 09/27/2023Start: 09-63-1934Tpvcban Directive DiscussionAdvance Directive DiscussionKettering Health Behavioral Medical Centertart: 57-91-1603Pvaqcxhlmi Health ScreeningBehavioral Health ScreeningKettering Health Behavioral Medical Centertart: 63-41-7121Nxeku microalbumin profile [facility]art: 05-03-2023 End: 49-11-1616Kjtyz metabolic 2000 panel - Serum or PlasmaBASIC METABOLIC PNL Lab Routine Malignant neoplasm of prostate (HCC) Expected: 05/03/2023 (Approxima te), Expires: 07/03/2023[facility] Work Phone: Comment on above:Expected: 05/03/2023 (Approximate), Expires: 07/03/2023Start: 05-03-2023 End: 92-41-6605NKE W Auto Differential panel - BloodCBC + DIFF Lab Routine Malignant neoplasm of prostate (HCC) Expected: 05/03/2023 (Approximate), Expi res: 07/03/2023[facility] Work Phone: Comment on above:Expected: 05/03/2023 (Approximate), Expires: 07/03/2023Start: 05-03-2023 End: 61-23-2801Rsbnlkvv specific Ag [Mass/volume] in Serum or Plasma PSA/PROSTSPECAG DIAG Lab Routine Malignant neoplasm of prostate (HCC) Expected: 05/03/2023 (Approximate), Expires: 07/03/2023[facility] Work Phone: Comment on above:Expected: 05/03/2023 (Approximate), Expires: 07/03/2023Start: 05-03-2023 End: 86-97-4543Nlapnioubmxa [Mass/volume] in Serum or PlasmaTESTOSTERONE TOTAL Lab Routine Malignant neoplasm of prostate (HCC) Expected: 05/03/2023 (Approximate), Expires: 07/03/2023[facility] Work Phone: Comment on above:Expected: 05/03/2023 (Approximate), Expires: 07/03/2023Start: 75-08-0247Ykxes-19 Vaccine ()Covid- 19 Vaccine ()[facility]art: 06-50-1677Syyyfchry vaccinationKettering Health Behavioral Medical Centertart: 68-46-4252Wmepx depression screening assessmentDEPRESSION SCREENINGKettering Health Behavioral Medical Centertart: 02-09-2023 End: 69-87-5320GMJ W Auto Differential panel - BloodCBC + DIFF Lab Routine Malignant neoplasm of prostate (HCC) 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, unspecified vessel or lesion type Essential hypertension Type 2 diabetes mellitus without complication, without long-term current use of insulin (HCC) Expected: 02/09/2023, Expires: 04/11/2023[facility] Work Phone: Comment on above:Expected: 02/09/2023, Expires: 04/11/2023Start: 02-09-2023 End: 05-68-0648Eaoodfrsjxyto metabolic 2000 panel - Serum or PlasmaCOMP METABOLIC PANEL Lab Routine Malignant neoplasm of prostate (HCC) 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, unspecified vessel or lesion type Essential hypertension Type 2 diabetes mellitus without complication, without long-term current use of insulin (HCC) Expected: 02/09/2023, Expires: 04/11/2023[facility] Work Phone: Comment on above:Expected: 02/09/2023, Expires: 04/11/2023Start: 02-09-2023 End: 66-48-5569Rbjpjcaq specific Ag [Mass/volume] in Serum or Plasma PSA/PROSTSPECAG DIAG Lab Routine Malignant neoplasm of prostate (HCC) 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, unspecified vessel or lesion type Essential hypertension Type 2 diabetes mellitus without complication, without long-term current use of insulin (HCC) Expected: 02/09/2023, Expires: 04/11/2023[facility] Work Phone: Comment on above:Expected: 02/09/2023, Expires: 04/11/2023Start: 19-96-6745Edvhh depression screening assessmentDEPRESSION SCREENINGKettering Health Behavioral Medical Centertart: 88-77-3047WZYSL-19 VACCINE (6 - Moderna series) COVID-19 VACCINE (6 - Moderna series)[facility]art: 68-15-5631LXLWLTE DIRECTIVE DISCUSSIONADVANCE DIRECTIVE DISCUSSIONKettering Health Behavioral Medical Centertart: 67-09-6673KGEVFABLSD ASSESSMENTDEPRESSION ASSESSMENTKettering Health Behavioral Medical Centertart: 29-78-7346Glywf depression screening assessmentDEPRESSION SCREENINGKettering Health Behavioral Medical Centertart: 05-03-2022 End: 10-12-0114POW W Auto Differential panel - BloodCBC + DIFF Lab Routine Malignant neoplasm of prostate (HCC) Expected: 05/03/2022, Expires: 07/03/[address] [facility] Work Phone: Comment on above:Expected: 05/03/2022, Expires: 07/03/2022tart: 05-03-2022 End: 61-80-3750Feoryzkufmzrj metabolic 2000 panel - Serum or PlasmaCOMP METABOLIC PANEL Lab Routine Malignant neoplasm of prostate (HCC) Expected: 05/03/2022, Expires: 07/03/2022[facility] Work Phone: Comment on above:Expected: 05/03/2022, Expires: 07/03/2022tart: 05-03-2022 End: 03-41-4427Xteavbpj specific Ag [Mass/volume] in Serum or Plasma PSA/PROSTSPECAG DIAG Lab Routine Malignant neoplasm of prostate (HCC) Expected: 05/03/2022, Expires: 07/03/2022[facility] Work Phone: Comment on above:Expected: 05/03/2022, Expires: 07/03/2022tart: 68-77-9477Jmnsybhpi vaccinationKettering Health Behavioral Medical Centertart: 11-02-2021 End: 55-23-8023LBL W Auto Differential panel - BloodCBC + DIFF Lab Routine Malignant neoplasm of prostate (HCC) Expected: 11/02/2021, Expires: 01/02/[address] [facility] Work Phone: Comment on above:Expected: 11/02/2021, Expires: 01/02/2022tart: 11-02-2021 End: 56-05-2125Fqfpoubawlnoh metabolic 2000 panel - Serum or PlasmaCOMP METABOLIC PANEL Lab Routine Malignant neoplasm of prostate (HCC) Expected: 11/02/2021, Expires: 01/02/2022[facility] Work Phone: Comment on above:Expected: 11/02/2021, Expires: 01/02/2022tart: 33-35-0290QLZDJ-19 VACCINE (5 - Booster)COVID-19 VACCINE (5 - Booster)[facility]: 79-21-4547PPLZP-19 VACCINE (4 - Booster for Moderna series)COVID-19 VACCINE (4 - Booster for Moderna series)[facility] Start: 60-91-2839DNHCXSF DIRECTIVE DISCUSSIONADVANCE DIRECTIVE DISCUSSION [facility]art: 90-11-3388KWDUGWYKPM ASSESSMENTDEPRESSION ASSESSMENT [facility]art: 34-71-5785EEAME-19 VACCINE (3 - Booster for Moderna series)COVID-19 VACCINE (3 - Booster for Moderna series)[facility]art: 68-30-3749XXEWHKRAA AGE 65 AND OVER WITH 5YR LOOKBACK (#1)PNEUMOVAX AGE 65 AND OVER WITH 5YR LOOKBACK (#1)[facility]ertart: 16-23-8964Kucaa microalbumin profileDTAP,TDAP,TD (1 - Tdap)[facility]: 23-39-9181QMOGZXGC VACCINE (2 of 3)SHINGRIX VACCINE (2 of 3)[facility]art: 51-66-7818SNY Vaccine (1 - 1-dose 60+ series)RSV Vaccine (1 - 1-dose 60+ series)[facility]: 69-80-7414KUUMGAWI VACCINE (1 of 2)SHINGRIX VACCINE (1 of 2)[facility] Start: 74-79-5154JAZSQWIOF (FIT-DNA)COLOGUARD (FIT-DNA)[facility]ertart: 77-31-3694WbfyyjzkivwWSBYNOGYVOJZbnmesetn ClinicStart: 33-49-5387NUNEKESMAV CANCER SCREENINGCOLORECTAL CANCER SCREENINGKettering Health Behavioral Medical Centertart: 00-93-1183UQ COLONOGRAPHYCT COLONOGRAPHYKettering Health Behavioral Medical Centertart: 16-47-0150IMVWLQEV SCREEN DIABETES SCREENKettering Health Behavioral Medical Centertart: 57-76-4859CAENW OCCULT BLOODFECAL OCCULT BLOODKettering Health Behavioral Medical Centertart: 18-88-1633YTXMBORJGTAFQDAJDCQJKFIVIWYobwkgllw Clinic Start: 11-47-7575VHGKT SCREENLIPID SCREENKettering Health Behavioral Medical Centertart: 02-14-1963 Anxiety ScreeningAnxiety ScreeningKettering Health Behavioral Medical Centertart: 74-52-0422Bgfdmtcggp ScreeningDepression ScreeningKettering Health Behavioral Medical Centertart: 92-85-0114VEICMGILQ C SCREENINGHEPATITIS C SCREENINGKettering Health Behavioral Medical Centertart: 15-73-1414Jyptfeplg C screeningHepatitis C ScreeningSelect Medical Specialty Hospital - CantonDermatopathology exam Dermatopathology exam Pathology and Cytology Timed Neoplasm of unspecified behavior of bone, soft tissue, and skin Release Upon Ordering for 1 Occurrences starting 08/28/2023[facility] Work Phone: comment on above:Release Upon Ordering for 1 Occurrences starting 08/28/2023MR Cervical spine WO contrastKettering Health DaytonUS ExtremityBapt[facility] Immunizations Immunization DateImmunizationNotesCare JvtmlelnZrivfzzw12-80-0756qmhipuzro, high dose seasonal, preservative-freeBenjamin Ball DO Work Phone: [facility]10-11-2024COVID-19 (MODERNA) 12Y and olderBenjamin Ball DO Work Phone: [facility]10-11-2024RSV, bv, preFa and preFb, pfBenjamin Ball DO Work Phone: [facility]10-10-2024tetanus toxoid, reduced diphtheria toxoid, and acellular pertussis vaccine, adsorbed Jamar Ball DO Work Phone: [facility]09-10-2024influenza, high dose seasonal, preservative-freeK[facility]tering Health [facility]09-10-2024 influenza virus vaccine, unspecified formulationSelect Specialty Hospital - Durhamhumberto Boo 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[employer] Work Phone: [facility] HospitalBiiatdshmd66-98-3738arkesiuyq virus vaccine, unspecified formulationK[facility]10-16-2023influenza, high dose seasonal, preservative-freeBenjamin Juan David Other [facility]onEpjhqq22-98-2012divcdpwdo nasal, unspecified formulationLab/[place] Work Phone: [facility] CantonJqzbgv99-71-5640jgyuejorf, high-dose, quadrivalent vaccine (FLUZONE HIGH DOSE QUADRIVALENT)Lab/[facility] Work Phone: [facility] CantonMklnqc02-43-2797pctsuhbvb, high dose seasonal, preservative-freeBenjamin Ball Other [facility]onPnfkqu27-05-5565qqxzjaodu virus vaccine, unspecified formulationLab/[facility] Work Phone: [facility]10-06-2022COVID-19 booster vaccine, age 12+ yr, bivalent (MODERNA) Lab/[facility] Work Phone: [facility] CantonComment on above:Result Comment: 2023-10-20: TRD8879-97-3304OPKOR-92 Vaccine Moderna - Documentation Purposes OnlyBenjamin Juan David Other [facility] CantonComment on above:Result Comment: 2023-10-20: [id number]-48 Vaccine Moderna - Documentation Purposes OnlyBenjamin Ball Other [facility] CantonComment on above:Result Comment: 2023-10-20: QIP3963-04-8313rytyoejhn virus vaccine, split virus (incl. purified surface antigen)Jamar Fall Other [facility] CantonGaobpy08-92-7067iojnhnalo virus vaccine, unspecified formulation[facility]10-01-2021influenza nasal, unspecified formulationMarco A Esqueda MD Work Phone: [facility] CantonHvhvqd95-73-8076aavizgdcs virus vaccine, unspecified formulationLabochema [facility] [id number]-77 Vaccine Moderna - Documentation Purposes OnlyBencelsojennifer Fall Other [facility] CantonTkjtvj14-97-2283PKWD-LnM-9 (COVID-19) Ad26 vaccine, recombinantLabochema [facility] [id number]-72 original vaccine, full dose, monovalent (MODERNA)Lab/[facility] Work Phone: [facility] CantonZssdho20-19-6398RPHQ-IaU-9 (COVID-19) mRNA- 1273 vaccinePaDocSpera [facility] comment on above:Result Comment: pt does not know the dates but states that he is fully ybxndeyjro33-66-5775xdxbdhcln virus vaccine, split virus (incl. purified surface antigen)Jamar Juan David Other [facility] CantonGaeqtl16-68-5563ctzxzyqll virus vaccine, unspecified formulationK[facility]10-07-2019influenza virus vaccine, split virus (incl. purified surface antigen)Jamar Fall Other [facility]onPaxjcm00-21-0304omzhwagxu virus vaccine, unspecified formulationK[facility]10-01-2019influenza nasal, unspecified formulationMarco A Esqueda MD Work Phone: [facility] CantonKxkfdy40-83-0963qlftgr vaccine daly Esqueda MD Work Phone: [facility] CantonSbemiq34-43-6118sfumga vaccine recombinant Marco A Esqueda MD Work Phone: [facility] CantonJoeoej05-04-9587qjanhgpil nasal, unspecified formulationMarco A Esqueda MD Work Phone: [facility] CantonFcedpo47-03-1732QO94 adjuvantLab/[place] Work Phone: [facility] CantonVxvsjs14-52-3374cxssrnkpm nasal, unspecified formulationLab/[place] Work Phone: [facility] CantonOabzyf79-67-6378ymejtiwwn virus vaccine, split virus (incl. purified surface antigen)Jamar Fall Other [facility] [employer] Other 09952386-10-2335oplpiayfn virus vaccine, unspecified formulationPatricAmigo da Cultura [facility]09-11-2018Seasonal trivalent influenza vaccine, adjuvanted, preservative Ginny Esqueda MD Work Phone: [facility] CantonKawyrf48-86-0130vwrlldlxzesl polysaccharide vaccine, 23 valHubert Esqueda MD Work Phone: [facility] CantonQvubje87-43-1784ffrvbpfwzmxc polysaccharide vaccine, 23 valentBenalfie Fall Other [facility] CantonZiylad85-27-9470Qzebbhx 20Benjajennifer Fall Other [facility]11-15-2017influenza nasal, unspecified formulationLab/[place] Work Phone: [facility] CantonQdrkvj93-64-1441xmcazvahp virus vaccine, unspecified formulationPatrick [employer] [facility]11-15-2017influenza, injectable, quadrivalent, preservative Ginny Esqueda MD Work Phone: [facility] CantonZdtqis74-77-6054rrqcqijrf nasal, unspecified formulationLab/[place] Work Phone: [facility] CantonVzmlxt94-87-7101bojjlcxnv virus vaccine, split virus (incl. purified surface antigen)Jamar Fall Other [facility] [employer] Other 0992428-17-1672yurirjswb virus vaccine, unspecified formulationPatiffanynataliya SCRUGGS [facility] Eqgmejdz15-16-2482todteuawc, high dose seasonal, preservative-Ginny Esqueda MD Work Phone: [facility] CantonEnfayt69-17-6181tdtrgdnhs nasal, unspecified formulationMarco A Esqueda MD Work Phone: [facility] CantonZyffcx61-88-3178fdghiafvz virus vaccine, split virus (incl. purified surface antigen)Jamar Fall Other [facility] CantonJzcmsf77-83-7848tdivllbtd virus vaccine, unspecified formulation[facility]09-15-2016influenza nasal, unspecified formulationMarco A Esqueda MD Work Phone: [facility] CantonEzcama70-45-9135bmkpiekvb nasal, unspecified formulationMarco A Esqueda MD Work Phone: [facility] CantonTccgep79-78-0662ylsvqpqve, seasonal, injectable, preservative freeLab/[place] Work Phone: [facility]onJwxhkh27-67-2159walrmbowvmqh conjugate vaccine, 13 Janis Esqueda MD Work Phone: [facility] CantonWlectw76-56-8051riibwpisdkkd polysaccharide vaccine, 23 Janis Esqueda MD Work Phone: [facility] CantonXsuxun60-70-6889hsajprngl nasal, unspecified formulationLab/[place] Work Phone: [facility] CantonVwdkwx78-69-2155ubkjwqboy, seasonal, injectable, preservative Ginny Esqueda MD Work Phone: [facility] CantonQzvoff59-77-3233eldxvynrec, tetanus toxoids and acellular pertussis vaccine, unspecified formulationMarco A Esqueda MD Work Phone: [facility] CantonBaehap30-96-4523yzecjho and diphtheria toxoids, not adsorbed, for adult useMarco A Esqueda MD Work Phone: [facility] CantonFivwvh74-21-7577unslabqjv nasal, unspecified formulationMarco A Esqueda MD Work Phone: [facility] CantonNmtsyi73-41-9798qghmrap and diphtheria toxoids, adsorbed, preservative free, for adult use (5 Lf of tetanus toxoid and 2 Lf of diphtheria toxoid)Jamar Fall Other [facility] CantonQxozhi67-48-4942exsfkh vaccine, liveMarco A Esqueda MD Work Phone: [facility] CantonXlbdum58-84-2395yddejeptq nasal, unspecified formulationMarco A Esqueda MD Work Phone: [facility] CantonDswksz47-95-1246ongfiqiiz nasal, unspecified formulationMarco A Esqueda MD Work Phone: [facility] CantonMtmuad94-95-4126syhisncodhwq polysaccharide vaccine, 23 valentBenjamin Ball Other [facility]onMbfggm32-10-0391aewvcswjnawx polysaccharide vaccine, 23 valHubert Esqueda MD Work Phone: [facility] CantonDqylli76-43-1813ceylrcdvjuss vaccine, unspecified formulationMarco A Esqueda MD Work Phone: [facility] CantonYrcbuw97-11-7634ndflwrjvk nasal, unspecified formulationMarco A Esqueda MD Work Phone: [facility] CantonDuvbsa48-55-6993qmqocwoysxdz polysaccharide vaccine, 23 valentBenjamin Ball Other [facility] CantonZipkba27-42-9041ugbhrhbix nasal, unspecified formulationMarco A Esqueda MD Work Phone: [facility] CantonEonnhu14-55-5027boxnflyej nasal, unspecified formulationMarco A Esqueda MD Work Phone: [facility] CantonFqksul27-27-4983khurttrea virus vaccine, whole virusMarco A Esqueda MD Work Phone: [facility] CantonFauecw55-76-4522zaizjtawfb, tetanus toxoids and acellular pertussis vaccine, unspecified formulationBenalfie Fall Other [facility] CantonUdueut11-97-7591IT(adult) unspecified formulationMarco A Esqueda MD Work Phone: [facility] CantonMwacrk61-64-0868bvnnzuhbc nasal, unspecified formulationMarco A Esqueda MD Work Phone: [facility] Payers DatePayer CategoryPayerPolicy [id number] MMO MEDICARE SUPPLEMENT [id number] 2019-Present [phone] [address] [place] [address] [id number]Atnktwi 1.2.840.312687.1.13.159.2.7.3.250844.79550-68-2041Ytueqpo Health Insurance [id number] 2011MedicareMEDICARE MEDICARE A AND B [id number] 2011-Present [phone] [address] [address] [place] [address] [id number] 2011Medicare [id number] [id number] 2.16.840.8.630264.95265025-20-6090Tphb-[id number] 2.16.840.5.24417[id number] 2.16.840.1.444928.3.5[id number] 2.16840.1.036652.3.57[id number] 2.16840.1.830629.3.57[id number] 2.840.1.121595.3.57[id number] 2.16840.1.539416.3.57[id number] 2.840.1.247393.3.57[id number] 2..1.798700.3.57[id number] 2.840.1.552083.3.57[id number] 2.840.1.234376.3.579.2.0[id number] 2.840.1.968289.3.57[id number] 2..1.617589.3.57[id number] 2.840.1.157743.3.57[id number] 2.840.1.758527.3.57[id number] 2.840.1.266130.3.57[id number] 2.840.1.466659.3.57[id number] 2.16.840.1.300384.3.57[id number] 2..840.1.158594.3.57[id number] 2.16.840.1.9[id number] 2.16.840.1.886751.3.579.2.593Unknown [id number] 2.16.840.1.7[id number] 2.840.1.052499.3.579.2.593 Social History DateTypeDetailFacilityStart: 11-08-2021 End: 58-42-7290Fyqisiv smoking status NHISNever smoked tobaccoSelect Medical Specialty Hospital [facility] Start: 10-25-2021 End: 34-51-4470Xfuevgw intakeCurrent drinker of alcohol (finding)[facility]ertart: 73-94-0963Buvtgvp SDOH Alcohol Comment1 day/wkSelect Medical Specialty Hospital [facility] Start: 22-26-8631Nrx Assigned At BirthNot on fileKettering Health Behavioral Medical Centertart: 10-18-2021 End: 54-54-2574Stxwdrbb to SARS-CoV-2 (event)Not sureSelect Medical Specialty Hospital - CantonTobacco smoking statusNeverExec[facility] start: 02-02-2023 End: 84-25-8794Wec Assigned At [facility] HealthMaleExec[facility] start: 27-89-8890Nhx Assigned At [facility] HospitaleCclevel[facility] ClinicStart: 01-12-2018 End: 23-77-9453Pdczffa use and exposureSmokeless tobacco non-userKettering Health Behavioral Medical Centertart: 02-02-2023 End: 74-83-6630Zykmely of Social functionKettering Health Behavioral Medical Centertart: 03-85-6139Dcfuqu identityIdentifies as male gender (finding)[facility]ertart: 02-11-2022 Sexual orientationHeterosexual (finding)[facility]onHow often to you have a drink containing alcohol?2-3 time sa weekNOMS HealthcareHow many standard drinks containing alcohol do you have on a typical day?1 or 2NOMS HealthcareHow often do you have 6 or more drinks on 1 occasion?NeverNOIN HealthcareStart: 06-04-2023 Alcohol Commentcaffeine intake: more than 4 cups per dayNOIN HealthcareStart: 09-06-2023 End: 36-63-3908Njxcgof smoking status NHISEx-smoker (finding)[facility] 07-[facility]2014 End: 19-68-4172SyaGkix (finding)[facility] Hospitalexual OrientationExec[facility]rology [facility] NEGATED: Highlighted rowStart: NINFHistory of tobacco usePassive smokerSelect Medical Specialty [facility] Medical Equipment Procedure CodeEquipment CodeEquipment Original TextEquipment IdentifierDates Start: 10-26-2021 End: 83-77-3182Rhdculs on above:1 Each once daily. To test blood sugars1 Each once daily. To test blood sugarBlood Sugar Diagnostic (Contour Next Test Strips) stripStart: 07-83-6268Egzskbs (Lancets,Thin) miscStart: 13-12-6704Waacr Sugar Diagnostic (Contour Next Test Strips) stripStart: 09-08-2023 End: 45-97-5864Vwrpf Sugar Diagnostic (Contour Next Test Strips) stripStart: 99-01-0805Poitylx (Lancets,Thin) miscStart: 99-02-6092Jfchv Sugar Diagnostic (Contour Next Test Strips) stripStart: 09-08-2023 End: 40-50-2378Kyaiz Sugar Diagnostic (Contour Next Test Strips) stripStart: 81-40-9490Havsfuo (Lancets,Thin) miscStart: 96-68-1095Mmhys Sugar Diagnostic (Contour Next Test Strips) stripStart: 09-08-2023 End: 73-80-7701Rdgts Sugar Diagnostic (Contour Next Test Strips) stripStart: 54-66-7256Lfrxhxy (Lancets,Thin) miscStart: 76-50-8577Aibhi Sugar Diagnostic (Contour Next Test Strips) stripStart: 09-08-2023 End: 10-10-2023 Functional Status YqfaVeprfpjvrkLuwbdsHhiynbqz03-63-9669Rngkjljsor StatusN/AExec[facility]04-05-2024Functional StatusN/AExec[facility]10-02-2023Functional StatusN/A [facility]10-28-2022Functional StatusN/AExec[facility] of [facility]02-03-2015Are you deaf, or do you have serious difficulty hearingNo 08/19/2014 10:35 AM Santiago Mills LPN [facility], Cancer [id number] you blind, or do you have serious difficulty seeing, even when wearing glassesYes 08/19/2014 10:35 AM Santiago Mills LPN YesSelect [facility]ty Hospital - [id number] you have serious difficulty walking or climbing stairsNo 08/19/2014 10:35 AM Santiago Mills LPN [facility]02-03-2015Do you have difficulty dressing or bathingNo 08/19/2014 10:35 AM Santiago Mills LPN [facility] [phone] of a physical, mental, or emotional condition, do you have difficulty doing errands alone such as visiting a physician's office or shopping No 08/19/2014 10:35 AM Santiago Mills LPN [facility] Mental Status Nlse[id number] of a physical, mental, or emotional condition, do you have serious difficulty concentrating, remembering, or making decisionsNo 08/19/2014 10:35 AM Santiago Mills LPN No [facility] Clinical Notes 07-17-2014 to 05-22-2025 Note Date & [id number] NoteHNO ID: [id number] Author: CHARY SHERMAN APRN.ASSISTANT MEN'S SOCCER COACH Service: ? Author Type: Nurse Practitioner Type: Progress Notes Filed: 05/22/2025 15:33 Note Text: NAME: Pablo Felix CLINIC NO.: [id number] DATE OF SERVICE: May 22, 2025 (Naveen) Some elements in this clinic note that are critical to medical decision making have been carefully reviewed and included from a prior clinic note dated: February 20, 2025 (Denice) Referring Provider: RADHA Additional Clinicians involved in Pablo Felix's care: Dr. Jamar Fall, Dr. Anthony Scruggs, Dr. 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 Stable on current medications. Continue per PCP/cardiology. [...] HISTORY: Reverse Chronological Order 11/05/2021 CT chest/abdomen/pelvis ([facility]) Several sclerotic lesions consi (more content not included)...[facility]09-21-2025 NotePlease let him know his stress test [...] into causes of his shortness of breath. Thanks![facility]09-15-2025 Hospital Discharge instructions Patient Education 03/31/2025 10:32:10 [...] advanced cancer. Where to find more information [place] [employer]: www.cancer.org National Cancer [place]: www.cancer.gov Contact a health care provider if: [...] provider. Document Revised: 10/14/2021 Document Reviewed: 10/14/2021 Mobile Authentication Patient Education 2023 [employer] Follow Up Care 10/07/2024 10:02:12 With:KAEL JAMES, Anthony Lee, URL Address: [address] [place] [address] When: Unknown Comments:6 mos w/ Yonis KHAN [facility] 09-15-2025 NotePatient Education Oncology Hormone Suppression Therapy [...] cancer. Where to find more information ??? [place] [employer]: www.cancer.org ??? National Cancer [place]: www.cancer.gov Contact a health care provider if: [...] are confused. ??? You (more content not included)...[facility]09-04-2025 Note Cardiovascular Medicine [facility] SUBJECTIVE Chief Complaint Patient presents with Coronary Artery Disease Denies chest pain and SOB. No recent testing. Valve Disorder Denies lightheadedness and palpitations. Hypertension Had labs in January 2025. Hyperlipidemia No recent lipid panel. Had one at the [place] about a year ago. 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 [...] Left Posterior Neck, Left Preauricular Area, Left Chandler, Left Temporal Scalp, Right Forehead, Right Parotid Area, Right [place] (2) Related Medications fluorouracil (Efudex) 5 % [...] (SQUAMOUS CELL CARCINOMA) OF SKIN Right [place] No evidence of recurrence at SCC scar. [...] 1 year, skin check documented in this encounterSaint John's Saint Francis [id number] NoteHNO ID: [id number] Author: SAUL TRACEY MD Service: ? Author Type: Physician Type: Progress Notes Filed: 02/20/2025 10:48 Note Text: NAME: Pablo Felix CLINIC NO.: [id number] DATE OF SERVICE: February 20, 2025 (Denice) Some elements in this clinic note that are critical to medical decision making have been carefully reviewed and included from a prior clinic note dated: 11/07/2024 (Dheeraj) Referring Provider: RADHA Additional Clinicians involved in Pablo Felix's care: Dr. Jamar Fall, Dr. Anthony Scruggs, Dr. Khan, [facility] Cardiology DIAGNOSIS: Metastatic prostate cancer CASE SUMMARY / ASSESSMENT: 80 year old man with. 1. Metastatic prostate cancer (HCC) - ICD9: 185, ICD10: C61 (primary diagnosis) The patient was diagnosed with early-stage high-grade prostate cancer in June 2014 (TRUS biopsy 07/02/2014). He underwent a radical prostatectomy on 11/05/2014. Pathology consistent with stage IIIC (pT2b, N0, M0), [place] 5+4 equal 9. 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 Stable on current medications. Continue per PCP/cardiology. [...] injections. - Continue current (more content not included)...[facility] 11-06-2024 NoteHNO ID: [id number] Author: MARCO A ESQUEDA MD Service: ? Author Type: Physician Type: Progress Notes Filed: 11/07/2024 14:08 Note Text: PATIENT NAME: Pablo Felix DATE: 11/07/2024 PRIMARY CARE PHYSICIAN: Dr. Jamar Fall OTHER PHYSICIANS: Dr. Anthony Scruggs, Dr. Khan, [facility] Cardiology Portions of this encounter note have [...] mg 24 hr tablet Take by mouth. 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 [...] 1.58 10/25/2021 2.64 12/15 (more content not included)...[facility]03-24-2025 Note Patient Education Oncology Hormone Suppression Therapy [...] cancer. Where to find more information ??? [place] [employer]: www.cancer.org ??? National Cancer [place]: www.cancer.gov Contact a health care provider if: [...] are confused. ??? You (more content not included)...[facility]01-22-2025 Note HNO ID: [id number] Author: CHRISTO HOWARD APRN.ASSISTANT MEN'S SOCCER COACH Service: ? Author Type: Nurse Practitioner Type: Progress Notes Filed: 08/08/2024 12:09 Note Text: PATIENT NAME: Pablo Felix DATE: 08/08/2024 PRIMARY CARE PHYSICIAN: Dr. Jamar Fall OTHER PHYSICIANS: Dr. Anthony Scruggs, Dr. Khan, [facility] Cardiology Portions of this encounter note have [...] mg 24 hr tablet Take by mouth. 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 [...] 07/19/2021 1.58 10/25/2021 2.6 (more content not included)...[facility]01-22-[facility] History of Present illness Narrative* Christo Howard, ROCHELLE.ASSISTANT MEN'S SOCCER COACH - 08/07/2024 10:42 AM EST PATIENT NAME: Pablo Felix DATE: 08/08/2024 PRIMARY CARE PHYSICIAN: Dr. Jamar Fall OTHER PHYSICIANS: Dr. Anthony Scruggs, Dr. Khan, [facility] Cardiology Portions of this encounter note have [...] mg 24 hr tablet Take by mouth. 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 [...] 08/01/2024 0.19 RADIOLOGY/OTHER STUDIES: 11/05/2021 CT chest/abdomen/pelvis ([facility]) Several sclerotic lesions consistent with metastatic disease. No evidence of visceral organ involvement or lymphadenopathy. 11/05/2021 Bone scan ([facility]) Multifocal osseous metastasis including the left femur at the lesser trochanter, right pubis symphysis, multiple ribs bilaterally. 01/22/2018 Nuclear bone scan ([facility]) New focal increased activity left frontal bone, left T8 vertebral body. 01/22/2018 MRI pelvis ([facility]) 4.5 cm area of T2 signal in the prostate bed. 07/24/2014 CT abdomen/pelvis ([facility] Diffuse prostatic enlargement with indentation of the bladder base. Incidental 2.5 x 1 cm exophytic hypodense lesion adjacent to the pancreatic body. ASSESSMENT/PLAN: 1. Metastatic prostate cancer (HCC) - ICD9: 185, ICD10: C61 (primary diagnosis) The patient was diagnosed with early-stage high-grade prostate cancer in June 2014 (TRUS tfbqpt0707/02/2014). He underwent a radical prostatectomy on 11/05/2014. [...] 414.01, ICD10: I25.10 Status post CABG 08/17/2014 ([facility]). Stable on current medications. Continue per PCP/cardiology. [...] which included preparing to see the patient, xihd-sm-mdob patient care, completing clinical documentation, obtaining and/or reviewing separately obtained history, performing a medically appropriate examination, counseling and educating the pat ient/family/caregiver, ordering medications, tests, or procedures, independently interpreting results (not separately reported), and communicating results to the patient/family/caregiver. documented in this encounterSelect Medical [facility]ty [facility]01-09-2025 Telephone encounter Note * Telephone Encounter - Josemanuel Ortiz - 07/25/2024 8:23 AM EST Patient on lab schedule 08/01/24 for lab only prior to RV. Please review and place needed order. Thank you, Gabi Ortiz MLT [facility]01-09-2025 Miscellaneous Notes* Telephone Encounter - Josemanuel Ortiz - 07/25/2024 8:23 AM EST Patient on lab schedule 08/01/24 for lab only prior to RV. Please review and place needed order. Thank you, Gabi Ortiz MLT documented in this encounterSelect Medical Specialty [facility]11-25-2024 Evaluation note* Diagnosis Onset Date Resolution Status [...] 2 diabetes mellitus with hyperglycemiaacuteFebruary 2024 9:28am [facility] Work Phone: [phone] 773-855610-23-2024 Telephone encounter Note* Telephone Encounter - Aida Luo RPh - 05/08/2024 8:53 AM EDT This prescription confirms Pablo' re-enrollment in the Xtandi free drug program for 2024. Thank you Josh Luo PharmD, BCOP [facility] Work Phone: [phone] 341-682710-23-2024 Miscellaneous Notes* Telephone Encounter - Aida Luo RPh - 05/08/2024 8:53 AM EDT This prescription confirms Pablo' re-enrollment in the Xtandi free drug program for 2024. Thank you Josh Luo PharmD, BCOP documented in this encounterSelect Medical Specialty Hospital - [facility]on10-23-2024 History of Present illness Narrative* Marco A Esqueda MD - 05/08/2024 8:13 AM EDT PATIENT NAME: Pablo Felix DATE: 05/09/2024 PRIMARY CARE PHYSICIAN: Dr. Jamar Fall OTHER PHYSICIANS: Dr. Anthony Scruggs, Dr. Khan, [facility] Cardiology Portions of this encounter note have [...] mg 24 hr tablet Take by mouth. 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 [...] 05/03/2024 0.18 RADIOLOGY/OTHER STUDIES: 11/05/2021 CT chest/abdomen/pelvis ([facility]) Several sclerotic lesions consistent with metastatic disease. No evidence of visceral organ involvement or lymphadenopathy. 11/05/2021 Bone scan ([facility]) Multifocal osseous metastasis including the left femur at the lesser trochanter, right pubis symphysis, multiple ribs bilaterally. 01/22/2018 Nuclear bone scan ([facility]) New focal increased activity left frontal bone, left T8 vertebral body. 01/22/2018 MRI pelvis ([facility]) 4.5 cm area of T2 signal in the prostate bed. 07/24/2014 CT abdomen/pelvis ([facility] Diffuse prostatic enlargement with indentation of the bladder base. Incidental 2.5 x 1 cm exophytic hypodense lesion adjacent to the pancreatic body. ASSESSMENT/PLAN: 1. Metastatic prostate cancer (HCC) - ICD9: 185, ICD10: C61 (primary diagnosis) The patient was diagnosed with early-stage high-grade prostate cancer in June 2014 (TRUS xiwwuf1107/02/2014). He underwent a radical prostatectomy on 11/05/2014. Pathology consistent with stage IIIC (pT2b, N0, M0), [place] 5+4 equal 9. 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 Stable on current medications. Continue per PCP/cardiology. [...] Anthony Scruggs documented in this encounterSelect Medical Specialty Hospital - [facility]on10-04-2024 Hospital Discharge instructions Patient Education 04/19/2024 08:45:03 [...] similar to normal prostate cells (well differentiated). [place] 7: This indicates that the cancer cells [...] stress of having cancer. General instructions Take uzqn-fbf-cpjpcqi and prescription medicines only as told by your health care provider. If you have to go to the hospital, notify your cancer specialist (oncologist). Keep all follow-up visits. This is important. Where to find more information [place] [employer]: www.cancer.org [place] Society of Clinical Oncology: www.cancer.net National Cancer [place]: www.cancer.gov Contact a health care provider if: [...] provider. Document Revised: 09/29/2021 Document Reviewed: 09/29/2021 Mobile Authentication Patient Education 2023 [employer] Follow Up Care 10/20/2023 09:58:12 With:KAEL JAMES, Anthony Lee, URL Address: [address] [place] [address]- When: Unknown [facility] 10-04-2024 NotePatient Education Oncology Prostate Cancer The [...] implanted intothe prostate gla (more content not included)...[facility]09-16-2024 Telephone encounter Note* Telephone Encounter - Aida Luo, [facility] - 04/01/2024 3:59 PM EDT Recd phone call from [facility] that they are unable to obtain the Xtandi 80mg tablets a thistime and requested a script for the 40 mg dosing. Order pending Josh Luo PharmD, BCOP [facility] Work Phone: [phone] Miscellaneous Notes* Telephone Encounter - Aida Luo RPh - 04/01/2024 3:59 PM EDT Recd phone call from [facility] that they are unable to obtain the Xtandi 80mg tablets a thistime and requested a script for the 40 mg dosing. Order pending Josh Luo PharmD, BCOP documented in this encounterSelect Medical Specialty Hospital - [facility]on07-19-2024 Instructions* Patient Instructions* Lynne Rajan APRN.CNP - [...] increasing confusion documented in this encounterSelect Medical Specialty Hospital - [facility]on07-19-2024 History of Present illness Narrative* Lynne Rajan APRN.CNP - 02/02/2024 11:30 AM EDT PATIENT NAME: Pablo Felix DATE: February 02, 2024 PRIMARY CARE PHYSICIAN: Dr. Jamar Fall OTHER PHYSICIANS: Dr. Anthony Scruggs, Dr. Khan, [facility] Cardiology This note was copied from prior [...] mg 24 hr tablet Take by mouth. 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 [...] 01/25/2024 0.15 RADIOLOGY/OTHER STUDIES: 11/05/2021 CT chest/abdomen/pelvis ([facility]) Several sclerotic lesions consistent with metastatic disease. No evidence of visceral organ involvement or lymphadenopathy. 11/05/2021 Bone scan ([facility]) Multifocal osseous metastasis including the left femur at the lesser trochanter, right pubis symphysis, multiple ribs bilaterally. 01/22/2018 Nuclear bone scan ([facility]) New focal increased activity left frontal bone, left T8 vertebral body. 01/22/2018 MRI pelvis ([facility]) 4.5 cm area of T2 signal in the prostate bed. 07/24/2014 CT abdomen/pelvis ([facility] Diffuse prostatic enlargement with indentation of the bladder base. Incidental 2.5 x 1 cm exophytic hypodense lesion adjacent to the pancreatic body. ASSESSMENT/PLAN: 1. Metastatic prostate cancer (HCC) - ICD9: 185, ICD10: C61 (primary diagnosis) The patient was diagnosed with early-stage high-grade prostate cancer in June 2014 (TRUS zfrwlh7307/02/2014). He underwent a radical prostatectomy on 11/05/2014. [...] suppressed at <12. Bone scan obtained at [facility] 11/05/2021 revealed multiple bone metastases. CT scans [...] 414.01, ICD10: I25.10 Status post CABG 08/17/2014 ([facility]). Stable on current medications. Continue per PCP/cardiology. [...] up. Lynne Rajan APRN.CNP Hematology/Oncology [facility]/ [facility] [phone] CC: Dr. Anthony Scruggs documented in this encounterSelect Medical Specialty Hospital - [facility]on04-18-2024 History of Present illness Narrative* Christo Howard APRN.CNP - 11/02/2023 9:28 AM EDT PATIENT NAME: Pablo Felix DATE: 11/02/2023 PRIMARY CARE PHYSICIAN: Dr. Jamar Fall OTHER PHYSICIANS: Dr. Anthony Scruggs, Dr. Khan, [facility] Cardiology Portions of this encounter note have [...] mg 24 hr tablet Take by mouth. 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 [...] 10/29/2023 0.16 RADIOLOGY/OTHER STUDIES: 11/05/2021 CT chest/abdomen/pelvis ([facility]) Several sclerotic lesions consistent with metastatic disease. No evidence of visceral organ involvement or lymphadenopathy. 11/05/2021 Bone scan ([facility]) Multifocal osseous metastasis including the left femur at the lesser trochanter, right pubis symphysis, multiple ribs bilaterally. 01/22/2018 Nuclear bone scan ([facility]) New focal increased activity left frontal bone, left T8 vertebral body. 01/22/2018 MRI pelvis ([facility]) 4.5 cm area of T2 signal in the prostate bed. 07/24/2014 CT abdomen/pelvis ([facility] Diffuse prostatic enlargement with indentation of the bladder base. Incidental 2.5 x 1 cm exophytic hypodense lesion adjacent to the pancreatic body. ASSESSMENT/PLAN: 1. Metastatic prostate cancer (HCC) - ICD9: 185, ICD10: C61 (primary diagnosis) The patient was diagnosed with early-stage high-grade prostate cancer in June 2014 (TRUS xuinkz0507/02/2014). He underwent a radical prostatectomy on 11/05/2014. [...] suppressed at <12. Bone scan obtained at [facility] 11/05/2021 revealed multiple bone metastases. CT scans [...] 414.01, ICD10: I25.10 Status post CABG 08/17/2014 ([facility]). Stable on current medications. Continue per PCP/cardiology. [...] reconsider referral to GI. Christo Howard APRN.ASSISTANT MEN'S SOCCER COACH CC: Dr. Anthony Scruggs I spent a total of 30 minutes on the date of the service which included preparing to see the patient, vafd-xe-cpmp patient care, completing clinical documentation, obtaining and/or reviewing separately obtained history, performing a medically appropriate examination, counseling and educating the pat ient/family/caregiver, ordering medications, tests, or procedures, independently interpreting results (not separately reported), and communicating results to the patient/family/caregiver. documented in this encounterSelect Medical Specialty [facility]04-05-2024 Hospital Discharge instructions Patient Education 10/20/2023 09:54:58 [...] greater thelikelihood that the cancer will spread. [place] 6 or lower: This indicates that the cancer cells look similar to normal prostate cells (well differentiated). Lu[place] 7: This indicates that the cancer cells look somewhat similar to normal prostate cells (moderately differentiated). [place] 8, 9, or 10: This indicates that [...] stress of having cancer. General instructions Take psrm-spr-gbaadjf and prescription medicines only as told by your health care provider. If you have to go to the hospital, notify your cancer specialist (oncologist). Keep all follow-up visits. This is important. Where to find more information [place] [employer]: www.cancer.org [place] Society of Clinical Oncology: www.cancer.net National Cancer [place]: www.cancer.gov Contact a health care provider if: [...] provider. Document Revised: 09/29/2021 Document Reviewed: 09/29/2021 Mobile Authentication Patient Education 2022 [employer] Follow Up Care 04/17/2023 09:25:02 With:KAEL JAMES, Anthony Lee, URL Address: [address] [place] [address]- When: Unknown [facility] 02-12-2024 History of Present illness Narrative* Long Boo, 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ASSISTANT MEN'S SOCCER COACH - 08/28/2023 11:25 AM EST Images from [...] limited to risks of scarring, darker or home inspector pigmentary changes, recurrence, incomplete removal and infection. [...] biopsy results, 6 months documented in this encounterSaint John's Saint Francis [id number] Evaluation note* Encounter Date Diagnosis Assessment Notes [...] use, the patient reduces the risk for PA, CVA, HTN, cardiac dysrhythmias and sudden cardiac [...] retention cyst and frontal sinus mass benign [facility] Other 01-19-2024 Evaluation note* Encounter Date Diagnosis Assessment Notes Treatment Notes Treatment Clinical Notes Jul, Pancreatic mass (ICD-10 - K86.89 ) MRCP: 4cm mass - 2022 - previously completed E[facility] bx at [facility] - stable in size from 2021 [facility] Other 11-14-2023 Evaluation note* Encounter Date Diagnosis [...] ENT since scheduling appt for sinus mass [facility] Other 10-16-2023 Evaluation note* Encounter Date Diagnosis [...] malignant neoplasm of bone (ICD-10 - C79.51) [facility] Other 10-12-2023 History of Present illness Narrative* Christo Howard, ROCHELLE.ASSISTANT MEN'S SOCCER COACH - 04/27/2023 10:00 AM EDT PATIENT NAME: Pablo Felix DATE: 04/27/2023 PRIMARY CARE PHYSICIAN: Dr. Jamar Fall OTHER PHYSICIANS: Dr. Anthony Scruggs, Dr. Khan, [facility] Cardiology Portions of this encounter note have [...] mg 24 hr tablet Take by mouth. 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 [...] 04/24/2023 0.12 RADIOLOGY/OTHER STUDIES: 11/05/2021 CT chest/abdomen/pelvis ([facility]) Several sclerotic lesions consistent with metastatic disease. No evidence of visceral organ involvement or lymphadenopathy. 11/05/2021 Bone scan ([facility]) Multifocal osseous metastasis including the left femur at the lesser trochanter, right pubis symphysis, multiple ribs bilaterally. 01/22/2018 Nuclear bone scan ([facility]) New focal increased activity left frontal bone, left T8 vertebral body. 01/22/2018 MRI pelvis ([facility]) 4.5 cm area of T2 signal in the prostate bed. 07/24/2014 CT abdomen/pelvis ([facility] Diffuse prostatic enlargement with indentation of the bladder base. Incidental 2.5 x 1 cm exophytic hypodense lesion adjacent to the pancreatic body. ASSESSMENT/PLAN: 1. Metastatic prostate cancer (HCC) - ICD9: 185, ICD10: C61 (primary diagnosis) The patient was diagnosed with early-stage high-grade prostate cancer in June 2014 (TRUS [id number]/02/2014). He underwent a radical prostatectomy on 11/05/2014. Pathology consistent with stage IIIC (pT2b, N0, M0), Dublin 5+4 equal 9. Postop the patient's PSA [...] suppressed at <12. Bone scan obtained at [facility] 11/05/2021 revealed multiple bone metastases. CT scans [...] 414.01, ICD10: I25.10 Status post CABG 08/17/2014 ([facility]). Stable on current medications. Continue per PCP/cardiology. [...] which included preparing to see the patient, pltx-oy-ajzi patient care, completing clinical documentation, obtaining and/or reviewing separately obtained history, performing a medically appropriate examination, counseling and educating the pat ient/family/caregiver, ordering medications, tests, or procedures, independently interpreting results (not separately reported), and communicating results to the patient/family/caregiver. documented in this encounterCleveland [id number] Evaluation note* Encounter Date Diagnosis Assessment Notes Treatment Notes Treatment Clinical Notes Apr, Pancreatic mass (ICD-10 - K86.89 ) [facility] Other [id number] Hospital Discharge instructions Patient Education 04/17/2023 09:18:19 [...] under a microscope. This is called the Dublin score and the total score can range from 6 10, indicating how likely it is that the cancer will spread (metastasize) to other parts of the body. The higher the score, the greater thelikelihood that the cancer will spread. Dublin 6 or lower: This indicates that the cancer cells look similar to normal prostate cells (well differentiated). Dublin 7: This indicates that the cancer cells look somewhat similar to normal prostate cells (moderately differentiated). Dublin 8, 9, or 10: This indicates that [...] stress of having cancer. General instructions Take zbar-urk-xdcftgz and prescription medicines only as told by your health care provider. If you have to go to the hospital, notify your cancer specialist (oncologist). Keep all follow-up visits. This is important. Where to find more information [place] [employer]: www.cancer.org [place] [employer]: www.cancer.net National Cancer [place]: www.cancer.gov Contact a health care provider if: [...] provider. Document Revised: 09/29/2021 Document Reviewed: 09/29/2021 Mobile Authentication Patient Education 2022 [employer] Follow Up Care 10/28/2022 08:37:57 With:KAEL JAMES, Anthony Lee, URL Address: [facility] [address] , [place] [address]- [phone] When: Unknown Comments:6 mos w/ PSA (and possible Lupron) [facility] [place] 09-27-2023 Evaluation note* Encounter Date Diagnosis Assessment Notes Treatment Notes Treatment Clinical Notes Mar, Pancreatic mass (ICD-10 - K86.89 ) [facility] Other 09-20-2023 Evaluation note* Encounter Date Diagnosis Assessment Notes Treatment Notes Treatment Clinical Notes Mar, Right upper quadrant abdominal p ain (ICD-10 - R10.11) Diet instructions Lab to r/o acute infection, cholecystitis, pancreatitis GBUS vs CT abd based on results BLand, low fat diet Mar,Nausea (ICD-10 - R11.0)[place] , small/frequent feedings. Pepcid, Prilosec, Tums as [...] Microalbumin, Dilated eye exam and Foot exam [facility] Other 08-30-2023 Evaluation note* Encounter Date Diagnosis [...] use, the patient reduces the risk for PA, CVA, HTN, cardiac dysrhythmias and sudden cardiac [...] exercise for 30 minutes, 3-5 times weekly. [facility] Other 07-23-2023 Evaluation note* Encounter Date Diagnosis Assessment Notes Treatment Notes Treatment Clinical Notes Jan, Left bundle-branch block, unspec ified (ICD-10 - I44.7) [facility] Other 07-20-2023 History of Present illness Narrative* Marco A Esqueda MD - 02/02/2023 7:38 AM EDT PATIENT NAME: Pablo Felix DATE: 02/02/2023 PRIMARY CARE PHYSICIAN: Dr. Jamar Fall OTHER PHYSICIANS: Dr. Anthony Scruggs, Dr. Khan, [facility] Cardiology Portions of this encounter note have [...] mg 24 hr tablet Take by mouth. 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 [...] 10/25/2022 0.13 RADIOLOGY/OTHER STUDIES: 11/05/2021 CT chest/abdomen/pelvis ([facility]) Several sclerotic lesions consistent with metastatic disease. No evidence of visceral organ involvement or lymphadenopathy. 11/05/2021 Bone scan ([facility]) Multifocal osseous metastasis including the left femur at the lesser trochanter, right pubis symphysis, multiple ribs bilaterally. 01/22/2018 Nuclear bone scan ([facility]) New focal increased activity left frontal bone, left T8 vertebral body. 01/22/2018 MRI pelvis ([facility]) 4.5 cm area of T2 signal in the prostate bed. 07/24/2014 CT abdomen/pelvis ([facility] Diffuse prostatic enlargement with indentation of the bladder base. Incidental 2.5 x 1 cm exophytic hypodense lesion adjacent to the pancreatic body. ASSESSMENT/PLAN: 1. Metastatic prostate cancer (HCC) - ICD9: 185, ICD10: C61 (primary diagnosis) The patient was diagnosed with early-stage high-grade prostate cancer in June 2014 (TRUS [id number]/02/2014). He underwent a radical prostatectomy on 11/05/2014. [...] suppressed at <12. Bone scan obtained at [facility] 11/05/2021 revealed multiple bone metastases. CT scans [...] 414.01, ICD10: I25.10 Status post CABG 08/17/2014 ([facility]). Stable on current medications. Continue per PCP/cardiology. [...] Anthony Scruggs documented in this encounterSelect Medical Specialty [facility]04-27-2023 History of Present illness Narrative* Christo Howard APRN.[employer] - 11/10/2022 10:00 AM EDT PATIENT NAME: Pablo Felix DATE: 11/10/2022 PRIMARY CARE PHYSICIAN: Dr. Jamar Fall OTHER PHYSICIANS: Dr. Anthony Scruggs, Dr. Khan, [facility] Cardiology Portions of this encounter note have [...] mg 24 hr tablet Take by mouth. Jkghdrgdlevpi-Zwqgtfij-Nfqcsh (MULTIVITAMIN 50 PLUS) tab Take 1 tablet [...] Radical retropubic prostatectomy and bilateral pelvic lymphadenectomy ([facility]) Poorly differentiated prostatic adenocarcinoma of left prostate. [...] PSA 0.13 RADIOLOGY/OTHER STUDIES: 11/05/2021 CT chest/abdomen/pelvis ([facility]) Several sclerotic lesions consistent with metastatic disease. No evidence of visceral organ involvement or lymphadenopathy. 11/05/2021 Bone scan ([facility]) Multifocal osseous metastasis including the left femur at the lesser trochanter, right pubis symphysis, multiple ribs bilaterally. 01/22/2018 Nuclear bone scan ([facility]) New focal increased activity left frontal bone, left T8 vertebral body. 01/22/2018 MRI pelvis ([facility]) 4.5 cm area of T2 signal in the prostate bed. 07/24/2014 CT abdomen/pelvis ([facility] Diffuse prostatic enlargement with indentation of the bladder base. Incidental 2.5 x 1 cm exophytic hypodense lesion adjacent to the pancreatic body. ASSESSMENT/PLAN: 1. Metastatic prostate cancer (HCC) - ICD9: 185, ICD10: C61 (primary diagnosis) The patient was diagnosed with early-stage high-grade prostate cancer in June 2014 (TRUS jycodl5807/02/2014). He underwent a radical prostatectomy on 11/05/2014. Pathology consistent with stage IIIC (pT2b, N0, M0), Dublin 5+4 equal 9. Postop the patient's PSA [...] suppressed at <12. Bone scan obtained at [facility] 11/05/2021 revealed multiple bone metastases. CT scans [...] 414.01, ICD10: I25.10 Status post CABG 08/17/2014 ([facility]). Stable on current medications. Continue per PCP/cardiology. [...] which included preparing to see the patient, eeyz-fh-svkx patient care, completing clinical documentation, obtaining and/or reviewing separately obtained history, performing a medically appropriate examination, counseling and educating the pat ient/family/caregiver, ordering medications, tests, or procedures, independently interpreting results (not separately reported), and communicating results to the patient/family/caregiver. documented in this encounterSelect Medical Specialty Hospital [facility] [place]03-03-2023 Evaluation note* Encounter Date Diagnosis Assessment Notes [...] injection w/ Kenalog, may increase BS slightly [facility] Other 02-24-2023 Evaluation note* Encounter Date Diagnosis [...] use, the patient reduces the risk for PA, CVA, HTN, cardiac dysrhythmias and sudden cardiac [...] Lupron along w/ additional oral chemotherapy from [facility] On[facility]. Also receiving Boniva Aug,OtherPersonalized health advice was given to the beneficiary including a written plan for screenings discussed and provided. Advanced care planning reviewed and/or information given as requested. Additional counseling was provided here today in regards to, [ ]. The above visit was performed by [ ] underdirect supervision of [ ]. Document reviewed and amended by provider signed below. [facility] Other 01-26-2023 History of Present illness Narrative* Marco A Esqueda MD - 08/11/2022 7:42 AM EST PATIENT NAME: Pablo Felix DATE: 08/11/2022 PRIMARY CARE PHYSICIAN: Dr. Jamar Fall OTHER PHYSICIANS: Dr. Anthony Scruggs, Dr. Khan, [facility] Cardiology Portions of this encounter note have [...] mg 24 hr tablet Take by mouth. Attpfsqmafsyi-Rvlofngj-Ndtcuy (MULTIVITAMIN 50 PLUS) tab Take 1 tablet [...] Radical retropubic prostatectomy and bilateral pelvic lymphadenectomy ([facility]) Poorly differentiated prostatic adenocarcinoma of left prostate. [...] 08/11/2022 PSA RADIOLOGY/OTHER STUDIES: 11/05/2021 CT chest/abdomen/pelvis ([facility]) Several sclerotic lesions consistent with metastatic disease. No evidence of visceral organ involvement or lymphadenopathy. 11/05/2021 Bone scan ([facility]) Multifocal osseous metastasis including the left femur at the lesser trochanter, right pubis symphysis, multiple ribs bilaterally. 01/22/2018 Nuclear bone scan ([facility]) New focal increased activity left frontal bone, left T8 vertebral body. 01/22/2018 MRI pelvis ([facility]) 4.5 cm area of T2 signal in the prostate bed. 07/24/2014 CT abdomen/pelvis ([facility] Diffuse prostatic enlargement with indentation of the bladder base. Incidental 2.5 x 1 cm exophytic hypodense lesion adjacent to the pancreatic body. ASSESSMENT/PLAN: 1. Metastatic prostate cancer (HCC) - ICD9: 185, ICD10: C61 (primary diagnosis) The patient was diagnosed with early-stage high-grade prostate cancer in June 2014 (TRUS rhqept9907/02/2014). He underwent a radical prostatectomy on 11/05/2014. [...] suppressed at <12. Bone scan obtained at [facility] 11/05/2021 revealed multiple bone metastases. CT scans [...] 414.01, ICD10: I25.10 Status post CABG 08/17/2014 ([facility]). Stable on current medications. Continue per PCP/cardiology. [...] Anthony Scruggs documented in this encounterSelect Medical Specialty Hospital - [place]01-05-2023 NotePROCEDURE: XR SHOULDER LT 2V or > [...] Electronically authenticated by: CYNTHIA TORRES Date: 2022-07-21 15:46[facility]01-05-2023 Evaluation note* Encounter Date Diagnosis Assessment Notes Treatment Notes Treatment Clinical Notes Jul, Cervical spondylosis with radicu lopathy (ICD-10 - M47.22) ROM exercises, heat/ice and Tylenol 1000mg tid. Initiated Tramadol w/ caution, no driving, may cause sedation. Jul,cute pain of left shoulder (ICD-10 - M25.512)ROM exercises, Tylenol and Tramadol as needed. Jul,nnual physical exam (ICD-10 - Z00.00) [facility] Other 10-28-2022 Hospital Discharge instructions Patient Education [...] who: Are older than age 65. Are -[place]. Are obese. Have a family history of [...] cells. Follow these instructions at home: Take rgyy-plq-wourgpz and prescription medicines only as told by [...] 07/03/2006 Document Revised: 06/15/2018 Document Reviewed: 03/13/2017 Mobile Authentication Patient Education [employer]. Follow Up Care 11/08/2021 14:14:20 With:KAEL JAMES, Anthony Lee, URL Address: [address] [place], [place] [phone]- When: Unknown [facility] 10-27-2022 Nurse Note* Sheela Toney - 05/12/2022 10:43 AM EDT AUA=2 documented in this encounterSelect Medical Specialty Hospital [facility] [place]10-27-2022 History of Present illness Narrative* Zach Khan MD - 05/12/2022 10:41 AM EDT Radiation Oncology - Follow Up Note PATIENT NAME: Pablo Felix PATIENT DIAGNOSIS: Prostate adenocarcinoma, initial clinical stage II, initial PSA 1.07, biopsy Dublin score 9(4,5), s/p prostatectomy for 11/05/14 pathologic stage IIIC [id number], Dublin 9 (5, 4) now with rising PSA [...] Each once daily. To test blood sugar Kaxgnkpaikysr-Seurasin-Ebmeno (MULTIVITAMIN 50 PLUS) tab Take 1 tablet [...] clinical stage II, initial PSA 1.07, biopsy Dublin score 9(4,5), s/p prostatectomy for 11/05/14 pathologic stage IIIC [id number], Lucrecia 9 (5, 4) withrising PSA, subsequently [...] Zach Khan MD cc: Jamar Fall MD ([facility]) Portions of the above note extracted and edited from previous visit as well as active information included in the EMR. documented in this encounterSelect Medical Specialty Hospital - [place]10-17-2022 Miscellaneous Notes* Telephone Encounter - Sheela Toney - 05/02/2022 10:48 AM EDT Patient coming in on 05/12/22 for follow up with labs. Please add lab orders. Thanks, Sheela Toney MA documented in this encounterSelect Medical Specialty Hospital - [place]08-04-2022 History of Present illness Narrative* Marco A Esqueda MD - 02/17/2022 7:51 AM EDT PATIENT NAME: Pablo Felix DATE: 02/17/2022 PRIMARY CARE PHYSICIAN: Jamar Fall DO OTHER PHYSICIANS: Dr. Anthony Scruggs, Dr. Khan, [facility] Cardiology Portions of this encounter note have [...] Each once daily. To test blood sugar Qyrwcwqhqelxx-Fcavyraz-Bpfdsg (MULTIVITAMIN 50 PLUS) tab Take 1 tablet [...] Radical retropubic prostatectomy and bilateral pelvic lymphadenectomy ([facility]) Poorly differentiated prostatic adenocarcinoma of left prostate. [...] PSA 0.14 RADIOLOGY/OTHER STUDIES: 11/05/2021 CT chest/abdomen/pelvis ([facility]) Several sclerotic lesions consistent with metastatic disease. No evidence of visceral organ involvement or lymphadenopathy. 11/05/2021 Bone scan ([facility]) Multifocal osseous metastasis including the left femur at the lesser trochanter, right pubis symphysis, multiple ribs bilaterally. 01/22/2018 Nuclear bone scan ([facility]) New focal increased activity left frontal bone, left T8 vertebral body. 01/22/2018 MRI pelvis ([facility]) 4.5 cm area of T2 signal in the prostate bed. 07/24/2014 CT abdomen/pelvis ([facility] Diffuse prostatic enlargement with indentation of the bladder base. Incidental 2.5 x 1 cm exophytic hypodense lesion adjacent to the pancreatic body. ASSESSMENT/PLAN: 1. Metastatic prostate cancer (HCC) - ICD9: 185, ICD10: C61 (primary diagnosis) The patient was diagnosed with early-stage high-grade prostate cancer in June 2014 (TRUS lfmsfl2407/02/2014). He underwent a radical prostatectomy on 11/05/2014. Pathology consistent with stage IIIC (pT2b, N0, M0), Dublin 5+4 equal 9. Postop the patient's PSA [...] at <12. Staging scans were obtained at [facility] on 11/05/2021. Bone scan revealed multiple areas [...] 414.01, ICD10: I25.10 Status post CABG 08/17/2014 ([facility]). Stable on current medications. Continue per PCP/cardiology. [...] Anthony Scruggs documented in this encounterSelect Medical Specialty Hospital [facility] [place]05-23-2022 Miscellaneous Notes* Telephone Encounter - Clementine Aguilar [...] that he has the phone number to [facility]. No additional questionsnoted. Clementine Aguilar RN documented in this encounterSelect Medical Specialty Hospital [facility] [place]04-28-2022 History of Present illness Narrative* Marco A Esqueda MD - 11/11/2021 7:42 AM EDT PATIENT NAME: Pablo Felix DATE: 11/11/2021 PRIMARY CARE PHYSICIAN: Jamar Fall, OTHER PHYSICIANS: Dr. Anthony Scruggs, Dr. Khan, [facility] Cardiology Portions of this encounter note have been copied from my note from 10/28/2021 and has been updated where appropriate, and reflect my current medical decision making from today. CC: This is a 76 year old male with recently diagnosed metastatic prostate cancer, seen for scheduled follow-up. INTERIM HISTORY: Since the patient's initial visit here he underwent staging scans at [facility] on 11/05/2021. Bone scan revealed multiple areas [...] Each once daily. To test blood sugar Pnlninlbjlhhc-Vosvuwly-Wezpyg (MULTIVITAMIN 50 PLUS) tab Take 1 tablet [...] Radical retropubic prostatectomy and bilateral pelvic lymphadenectomy ([facility]) Poorly differentiated prostatic adenocarcinoma of left prostate. [...] PSA 2.64 RADIOLOGY/OTHER STUDIES: 11/05/2021 CT chest/abdomen/pelvis ([facility]) Several sclerotic lesions consistent with metastatic disease. No evidence of visceral organ involvement or lymphadenopathy. 11/05/2021 Bone scan ([facility]) Multifocal osseous metastasis including the left femur at the lesser trochanter, right pubis symphysis, multiple ribs bilaterally. 01/22/2018 Nuclear bone scan ([facility]) New focal increased activity left frontal bone, left T8 vertebral body. 01/22/2018 MRI pelvis ([facility]) 4.5 cm area of T2 signal in the prostate bed. 07/24/2014 CT abdomen/pelvis ([facility] Diffuse prostatic enlargement with indentation of the bladder base. Incidental 2.5 x 1 cm exophytic hypodense lesion adjacent to the pancreatic body. ASSESSMENT/PLAN: 1. Metastatic prostate cancer (HCC) - ICD9: 185, ICD10: C61 (primary diagnosis) The patient was diagnosed with early-stage high-grade prostate cancer in June 2014 (TRUS [id number]/02/2014). He underwent a radical prostatectomy on 11/05/2014. [...] at <12. Staging scans were obtained at [facility] on 11/05/2021. Bone scan revealed multiple areas [...] 414.01, ICD10: I25.10 Status post CABG 08/17/2014 ([facility]). Stable on current medications. Continue per PCP/cardiology. [...] Anthony Scruggs documented in this encounterSelect Medical Specialty [facility] [place]04-27-2022 Miscellaneous Notes* Telephone Encounter - Clementine Aguilar RN - 11/10/2021 3:03 PM EDT Pt reports his Enzalutamide was delivered. Will start this evening. Clementine Aguilar RN documented in this encounterSelect Medical Specialty Hospital - [place]04-26-2022 Miscellaneous Notes* Telephone Encounter - Clementine Aguilar RN - 11/09/2021 2:31 PM EDT Per pt, his Enzalutamide is scheduled to arrive tomorrow morning. Patient started/will start taking Enzalutamide on 11/10/21. Clementine Aguilar RN documented in this encounterSelect Medical Specialty Hospital - [place]04-25-2022 Hospital Discharge instructions Patient Education 11/08/2021 14:10:09 [...] who: Are older than age 65. Are -[place]. Are obese. Have a family history of [...] cells. Follow these instructions at home: Take onxz-kgy-gftbhlg and prescription medicines only as told by [...] 07/03/2006 Document Revised: 06/15/2018 Document Reviewed: 03/13/2017 Mobile Authentication Patient Education 2020 [employer] Follow Up Care 08/23/2021 13:26:07 With:KAEL JAMES, Anthony Lee, URL Address: [facility] [address] [place] [phone] When:05/10/2022 [facility] 04-21-2022 Miscellaneous Notes* Telephone Encounter - Clementine Aguilar RN - 11/04/2021 2:53 PM EDT Pt would like to get the 4th Covid vaccine when it's due. Dr Esqueda notified and gives the ok to proceed when due. Pt notified and verbalizes understanding. Clementine Aguilar RN documented in this encounterSelect Medical Specialty [facility]04-21-2022 History of Present illness Narrative* Clementine Aguilar [...] Information handout: Enzalutamide, Specialty Pharmacy Information : [facility] phone numbers: Yes [...] minutes Clementine Aguilar RN * Aida Luo, [facility] - 11/04/2021 2:49 PM EDT Images from the original note were not included. [facility] Department of Pharmacy Oncology Pharmacy Medication [...] Each once daily. To test blood sugar Mpmxdhsgpcmkf-Arkaqpno-Pmgqjn (MULTIVITAMIN 50 PLUS) tab Take 1 tablet [...] of chemotherapy NA - Followed up with [facility] for delivery of Free Xtandi Readiness [...] Luo RPh documented in this encounterSelect Medical Specialty [facility] [place]04-21-2022 Miscellaneous Notes* Telephone Encounter - Aida Luo RPh - 11/04/2021 10:54 AM EDT Confirmed with [employer] approval date 11/01/21 and that the specialty pharmacy, [facility], will reach out to Mr Felix 3-5 business days from approval date. If he does not hear from them by 11/10/21 we should call [facility] @ option 2. I informed Mr Felix of this, he has an appt 11/12/21 and said if he has not heard from them by then he will get their phone number from us. Rubin Luo RPh documented in this encounterSelect Medical Specialty Hospital [facility] [place]04-19-2022 Miscellaneous Notes* Telephone Encounter - Jennifer Amaro [...] him know to be expecting this call. [facility] will call patient to set up delivery for all fills. I do not see where he has had chemo education yet. Alba does he need to be set up with you? Thanks Rubin Luo RP * Telephone Encounter - Andreina Castillo RP - 11/01/2021 10:55 AM EDT Patient called today. We completed a conference call with [employer] - they were ableto obtain [...] We will proceed free drug application through [employer] Pharmacy to reach out to patient 10/29/2021 to notify. Brina Wang RPh * Telephone Encounter - Brina Wang RPh - 10/28/2021 3:08 PM EDT Ambulatory Pharmacy Prior Authorization Note Provider Intervention Required?: No- Pharmacy completed on your behalf. Drug: Xtandi Cover My Meds Carter: [id number] Determination: Approved Prior Authorization/Case #: [id number] Prior Authorization Expiration: 10/28/2022 Time to PA Submission in CMM: 15 min Time to PA Determination in CMM: Same day Additional Information: [employer]-Pay $3,111.12 For questions relating to this submission, please contact [facility] at [phone] documented in this encounterSelect Medical Specialty [facility] [place]04-19-2022 Miscellaneous Notes* Telephone Encounter - Zohra Avila PA-C - 11/02/2021 12:00 PM EDT CBC and CMP orders placed Zohra Avila PA-C * Telephone Encounter - Katie Rosen MA - 11/02/2021 11:57 AM EDT Patient has an appt on 11/11/21. Would you like labs, if so place orders. Katie Rosen MA documented in this encounterSelect Medical [facility] Miscellaneous Notes* Telephone Encounter - Clementine Aguilar [...] Thanks, RADHA [facility] Miscellaneous Notes* Telephone Encounter - Clementine Aguilar RN - 10/28/2021 1:12 PM EDT Voicemail message received from Sandra @ [facility]. Reports the pt's 1st dose [...] Aguilar RN documented [facility] [place] Miscellaneous Notes* Telephone Encounter - Clementine Aguilar RN - 10/28/2021 1:12 PM EDT This encounter was opened in error. @[email or web address]@ documented [facility] [place] Miscellaneous Notes* Telephone Encounter - Christo Howard APRN.CNP - 10/25/2021 4:05 PM EDT Hold off for now. Christo Howard APRN.[employer] * Telephone Encounter - Katie Rosen MA - 10/25/2021 11:01 AM EDT If patient needs labs, please sign/place orders for 10/28/21. Thanks. Katie Rosen MA documented [facility] [place] Evaluation note* Diagnosis Onset Date Resolution Status ASHD (arteriosclerotic heart disease) acuteCervical spondylosisacuteEssential hypertensionacuteHypercholesterolemia acuteMalignant neoplasm of prostateJanuary cuteNonrheumatic aortic valve stenosisacuteOSA (obstructive sleep apnea)acuteType 2 diabetes mellitus with hyperglycemiaacute [facility] Work Phone: Evaluation + Plan note Future Appointments Appointment Date:05/13/2022 08:45:00 AM Scheduled Provider:Anthony SCRUGGS MD Location:[facility] Appointment Type:URO Office Visit Diagnostic Tests Pending * PSA Total 11/08/21 Future Scheduled Tests Laboratory* Basic Metabolic Panel 09/20/21 [facility] evaluation + Plan note Future Appointments Appointment Date:10/28/2022 08:00:00 AM Scheduled Provider:Anthony SCRUGGS MD Location:[facility] Appointment Type:URO Office Visit Diagnostic Tests Pending * PSA Total 09/14/22 Future Scheduled Tests Laboratory* Basic Metabolic Panel 09/20/21 [facility] evaluation + Plan note Future Appointments Appointment Date:10/20/2023 08:45:00 AM Scheduled Provider:Anthony SCRUGGS MD Location:[facility] Appointment Type:URO Office Visit Diagnostic Tests Pending * PSA Total 04/17/23 [facility] evaluation + Plan note Future Appointments Appointment Date:04/19/2024 08:00:00 AM Scheduled Provider:Anthony SCRUGGS MD Location:[facility] Appointment Type:URO Office Visit Diagnostic Tests Pending * PSA Total 02/15/24 [facility] evaluation + Plan note Future Appointments Appointment Date:10/07/2024 09:15:00 AM Scheduled Provider:[facility] Type:[facility]O Office Visit Diagnostic Tests Pending * PSA Total 08/17/24 [facility] evaluation + Plan note Future Appointments Appointment Date:09/22/2025 09:30:00 AM Scheduled Provider: Location:[facility] Appointment Type:URO Nurse Visit Appointment Date:09/29/2025 11:15:00 AM Scheduled Provider:Anthony SCRUGGS [facility] Type:URO Office Visit Diagnostic Tests Pending * PSA Total 03/31/25 [facility] Evaluation note* Diagnosis OPENED IN ERROR- Primary To allow closing an encounter opened in error (used in SmartSet) documented in this encounter [facility]* Diagnosis Malignant neoplasm of prostate (HCC)- Primary Malignant neoplasm of prostate [facility]* Diagnosis Malignant neoplasm of prostate (HCC)- Primary Malignant neoplasm of prostate documented in this [facility]* Diagnosis Malignant neoplasm of prostate (HCC)- Primary Malignant neoplasm of prostate 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 documented in this encounter [facility]* Diagnosis Malignant neoplasm of prostate (HCC)- Primary Malignant neoplasm of prostate documented in this [facility]* Diagnosis Malignant neoplasm of prostate (HCC)- Primary Malignant neoplasm of prostate 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 documented in this [facility]* Diagnosis Malignant neoplasm of prostate (HCC)- Primary Malignant neoplasm of prostate documented in this encounter [facility]* Diagnosis Malignant neoplasm of prostate (HCC)- Primary Malignant neoplasm of prostate [facility] in [facility]* Diagnosis Malignant neoplasm of prostate (HCC)- Primary Malignant neoplasm of prostate documented in this encounter [facility]* Diagnosis Malignant neoplasm of prostate (HCC)- Primary Malignant neoplasm of prostate documented in this [facility]* Diagnosis Malignant neoplasm of prostate (HCC)- Primary Malignant neoplasm of prostate 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, unspecified vessel or lesion type Essential hypertension Unspecified essential hypertension Type 2 diabetes mellitus without complication, without long-term current use of insulin (HCC) documented in this encounter [facility] noteNo [facility] [employer] Other Evaluation note* Diagnosis Malignant neoplasm of prostate (HCC)- Primary Malignant neoplasm of prostate 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, unspecified vessel or lesion type Essential hypertension Unspecified essential hypertension Type 2 diabetes mellitus without complication, without long-term current use of insulin (HCC) documented in this encounter [facility]* Diagnosis Malignant neoplasm of prostate (HCC)- Primary Malignant neoplasm of prostate documented in this encounter [facility] note* Diagnosis Malignant neoplasm of prostate (HCC)- Primary Malignant neoplasm of prostate documented in this encounter [facility]* Diagnosis Malignant neoplasm of prostate (HCC)- Primary Malignant neoplasm of prostate 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, unspecified vessel or lesion type Type 2 diabetes mellitus without complication, without long-term current use of insulin (HCC) Lesion of skin of right ear Abdominal discomfort Abdominal pain, unspecified site documented in this encounter [facility]* Diagnosis Onset Date Resolution Status Cervical spondylosis acuteMass of skin of left shoulderacutePrimary osteoarthritis, right shoulder acuteShoulder pain, rightacuteNeck painnoneactiveASHD (arteriosclerotic heart disease)acuteEssential hypertensionacuteHypercholesterolemiaacuteMalignant neoplasm of prostateJanuary cuteNonrheumatic aortic valve stenosis acuteOSA (obstructive sleep apnea)acuteType 2 diabetes mellitus with hyperglycemiaacute [facility] Work Phone: Evaluation note* Diagnosis Malignant neoplasm of prostate (HCC)- Primary Malignant neoplasm of prostate documented in this encounter [facility]* Diagnosis Malignant neoplasm of prostate (HCC)- Primary Malignant neoplasm of prostate documented in this [facility]* Diagnosis Malignant neoplasm of prostate (HCC)- Primary Malignant neoplasm of prostate documented in this encounter [facility]* Diagnosis Malignant neoplasm of prostate (HCC)- Primary Malignant neoplasm of prostate documented in this encounter [facility]* Diagnosis Malignant neoplasm of prostate (HCC)- Primary Malignant neoplasm of prostate Essential hypertension Unspecified essential hypertension 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, unspecified vessel or lesion type Type 2 diabetes mellitus without complication, without long-term current use of insulin (HCC) [facility] Malignant neoplasm of prostate (HCC)- Primary Malignant neoplasm of prostate [facility]* Diagnosis Seborrheic keratosis- Primary Melanocytic nevus of trunk Benign neoplasm of skin of trunk, except scrotum Actinic keratosis Lentigines Psoriasis vulgaris Other psoriasis History of SCC (squamous cell carcinoma) of skin Personal history of other malignant neoplasm of skin [facility] Diagnosis Onset Date Resolution Status Admit Date ASHD (arteriosclerotic heart disease) acuteOctober 2024 9:18amCervical spondylosisacuteOctober 2024 9:18am Essential hypertensionacuteOctober 2024 9:18amHypercholesterolemiaacute May 01, 2025 9:18amMalignant neoplasm of prostateJanuary cute May 01, 2025 9:18amNonrheumatic aortic valve stenosisacuteOctober 2024 9:18amOSA (obstructive sleep apnea)acuteOctober 2024 9:18amType 2 diabetes mellitus with hyperglycemiaacuteOctober 2024 9:18am [facility] Work Phone: History general Narrative - Reported* Type Description Date Medical History Nonrheumatic aortic valve stenos is Medical HistoryProstate cancerMedical HistoryObesity (BMI 30-39.9)Medical HistoryOSA (obstructive sleep apnea)Medical HistoryHyperlipidemia type IIMedical HistoryEssential hypertensionMedical HistoryType 2 diabetes mellitus with hyperglycemiaMedical HistoryASHD (arteriosclerotic heart disease)Medical History Depression screeningMedical HistoryOther congenital malformations of iris Surgical HistoryAppendectomy07/27/2016Surgical HistoryTRUS/Bx/2014Surgical Ncvxbsilhprdfvzazt13/2019Surgical XftqpllGXH55/2019Surgical HistoryLHC/2014 Surgical HistoryCABG x32/2015Surgical HistoryPancreatic Mass/2016 Hospitalization Historysee surgical mVisum Other History general Narrative - Reported* Type Description Date Medical History Nonrheumatic aortic valve stenos is Medical HistoryProstate cancerMedical HistoryObesity (BMI 30-39.9)Medical HistoryOSA (obstructive sleep apnea)Medical HistoryHyperlipidemia type IIMedical HistoryEssential hypertensionMedical HistoryType 2 diabetes mellitus with hyperglycemiaMedical HistoryASHD (arteriosclerotic heart disease)Medical History Depression screeningMedical HistoryOther congenital malformations of irisMedical HistoryPancreatic massSurgical HistoryAppendectomy07/27/2016Surgical History TRUS/Bx/2014Surgical Wmehbnoyussvswxvqw66/2019Surgical QetgxjaDFG03/2019 Surgical HistoryLHC2/2014Surgical HistoryCABG x32/2015Surgical HistoryPancreatic Mass/2016Hospitalization Historysee surgical hx mVisum Other Hospital course Narrative No data available for this section [facility] progress note No data available for this section [facility] reason for referral (narrative)No reason for referral information availableThe [facility] Work Phone: Medications Administered Section Medication OrderMAR ActionAction DateDoseRateSite denosumab 120 mg injection (XGEVA) 120 mg, SUBCUTANEOUS, ONCE, 1 dose, On Mon11/18/21 at 1100, REFRIGERATE Given11/18/2021 10:47 AM [id number] mgArm, LeftMedication OrderMAR ActionAction Date DoseRateSite denosumab 120 mg injection (XGEVA) 120 mg, SUBCUTANEOUS, ONCE, 1 dose, On Mon05/12/22 at 1030, REFRIGERATE Given05/12/2022 10:26 AM [id number] mgArm, LeftMedication OrderMAR ActionAction Date DoseRateSite denosumab 120 mg injection (XGEVA) 120 mg, SUBCUTANEOUS, ONCE, 1 dose, On Mon08/11/22 at 1030, REFRIGERATE Given08/11/2022 10:23 AM [id number] mgArm, LeftMedication OrderMAR ActionAction Date DoseRateSite denosumab 120 mg injection (XGEVA) 120 mg, SUBCUTANEOUS, ONCE, 1 dose, On [place] 4/27/23 at 1000, REFRIGERATE Given11/10/2022 10:03 AM [id number] mgBack, LeftMedication OrderMAR ActionAction DateDoseRateSite denosumab 120 mg injection (XGEVA) 120 mg, SUBCUTANEOUS, ONCE, 1 dose, On Mon02/02/23 at 1030, REFRIGERATE Given02/02/2023 10:34 AM [id number] mgArm, LeftMedication OrderMAR ActionAction Date DoseRateSite denosumab 120 mg injection (XGEVA) 120 mg, SUBCUTANEOUS, ONCE, 1 dose, On Mon04/27/23 at 1000, REFRIGERATE Given04/27/2023 9:57 AM [id number] mgArm, Left Summary Purpose Family History No [...] To Contact Diagnoses Actinic keratosis 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, 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[employer] [address] [place] [address] Referral IDStatusReasonStart DateExpiration DateVisits RequestedVisits [id number] Reason *FU 06/06 Right fr ontal sinus mass and cerumen impaction Diagnosis 1 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) Diagnosis 2 Impacted cerumen of right ear (H61.21) Referral Organization [facility] Thony lizama Referring Provider First Name Jamar Referring Provider Last Name Juan David Referring Provider Specialty Internal Me dicine Referred Organization [facility] Referred Provider Emelina Louis Referred Address ,[place], [place],[address] Referred Provider Specialty Ear, Nose an d [...] any alcohol or drug abuse patient.[facility] the event this information is protected by the Federal Confidentiality of Alcohol and Drug Abuse Patient Records regulations: The Federal rules restrict any use of the information to criminally investigate or prosecute any alcohol or drug abuse patient.[facility] the event this information is protected by the Federal Confidentiality of Alcohol and Drug Abuse Patient Records regulations: The Federal rules restrict any use of the information to criminally investigate or prosecute any alcohol or drug abuse patient.[facility]on[facility] the event this information is protected by the Federal Confidentiality of Alcohol and Drug Abuse Patient Records regulations: The Federal rules restrict any use of the information to criminally investigate or prosecute any alcohol or drug abuse patient.[facility]on[facility] the event this information is protected by the Federal Confidentiality of Alcohol and Drug Abuse Patient Records regulations: The Federal rules restrict any use of the information to criminally investigate or prosecute any alcohol or drug abuse patient.[facility]on[facility] the event this information is protected by the Federal Confidentiality of Alcohol and Drug Abuse Patient Records regulations: The Federal rules restrict any use of the information to criminally investigate or prosecute any alcohol or drug abuse patient.[facility]on[facility] the event this information is protected by the Federal Confidentiality of Alcohol and Drug Abuse Patient Records regulations: The Federal rules restrict any use of the information to criminally investigate or prosecute any alcohol or drug abuse patient.[facility]on[facility] the event this information is protected by the Federal Confidentiality of Alcohol and Drug Abuse Patient Records regulations: The Federal rules restrict any use of the information to criminally investigate or prosecute any alcohol or drug abuse patient.[facility]on[facility] the event this information is protected by the Federal Confidentiality of Alcohol and Drug Abuse Patient Records regulations: The Federal rules restrict any use of the information to criminally investigate or prosecute any alcohol or drug abuse patient.[facility]on[facility] the event this information is protected by the Federal Confidentiality of Alcohol and Drug Abuse Patient Records regulations: The Federal rules restrict any use of the information to criminally investigate or prosecute any alcohol or drug abuse patient.[facility]on[facility] the event this information is protected by the Federal Confidentiality of Alcohol and Drug Abuse Patient Records regulations: The Federal rules restrict any use of the information to criminally investigate or prosecute any alcohol or drug abuse patient.[facility]on[facility] the event this information is protected by the Federal Confidentiality of Alcohol and Drug Abuse Patient Records regulations: The Federal rules restrict any use of the information to criminally investigate or prosecute any alcohol or drug abuse patient.[facility]on[facility] the event this information is protected by the Federal Confidentiality of Alcohol and Drug Abuse Patient Records regulations: The Federal rules restrict any use of the information to criminally investigate or prosecute any alcohol or drug abuse patient.[facility]onIn the event this information is protected by the Federal Confidentiality of Alcohol and Drug Abuse Patient Records regulations: The Federal rules restrict any use of the information to criminally investigate or prosecute any alcohol or drug abuse patient.[facility]onIn the event this information is protected by the Federal Confidentiality of Alcohol and Drug Abuse Patient Records regulations: The Federal rules restrict any use of the information to criminally investigate or prosecute any alcohol or drug abuse patient.[facility]onIn the event this information is protected by the Federal Confidentiality of Alcohol and Drug Abuse Patient Records regulations: The Federal rules restrict any use of the information to criminally investigate or prosecute any alcohol or drug abuse patient.[facility]onIn the event this information is protected by the Federal Confidentiality of Alcohol and Drug Abuse Patient Records regulations: The Federal rules restrict any use of the information to criminally investigate or prosecute any alcohol or drug abuse patient.[facility]onIn the event this information is protected by the Federal Confidentiality of Alcohol and Drug Abuse Patient Records regulations: The Federal rules restrict any use of the information to criminally investigate or prosecute any alcohol or drug abuse patient.[facility]onIn the event this information is protected by the Federal Confidentiality of Alcohol and Drug Abuse Patient Records regulations: The Federal rules restrict any use of the information to criminally investigate or prosecute any alcohol or drug abuse patient.[facility]onIn the event this information is protected by the Federal Confidentiality of Alcohol and Drug Abuse Patient Records regulations: The Federal rules restrict any use of the information to criminally investigate or prosecute any alcohol or drug abuse patient.[facility]onIn the event this information is protected by the Federal Confidentiality of Alcohol and Drug Abuse Patient Records regulations: The Federal rules restrict any use of the information to criminally investigate or prosecute any alcohol or drug abuse patient.[facility]onIn the event this information is protected by the Federal Confidentiality of Alcohol and Drug Abuse Patient Records regulations: The Federal rules restrict any use of the information to criminally investigate or prosecute any alcohol or drug abuse patient.[facility]onIn the event this information is protected by the Federal Confidentiality of Alcohol and Drug Abuse Patient Records regulations: The Federal rules restrict any use of the information to criminally investigate or prosecute any alcohol or drug abuse patient.[facility]onIn the event this information is protected by the Federal Confidentiality of Alcohol and Drug Abuse Patient Records regulations: The Federal rules restrict any use of the information to criminally investigate or prosecute any alcohol or drug abuse patient.[facility]onIn the event this information is protected by the Federal Confidentiality of Alcohol and Drug Abuse Patient Records regulations: The Federal rules restrict any use of the information to criminally investigate or prosecute any alcohol or drug abuse patient.[facility]onIn the event this information is protected by the Federal Confidentiality of Alcohol and Drug Abuse Patient Records regulations: The Federal rules restrict any use of the information to criminally investigate or prosecute any alcohol or drug abuse patient.[facility]onIn the event this information is protected by the Federal Confidentiality of Alcohol and Drug Abuse Patient Records regulations: The Federal rules restrict any use of the information to criminally investigate or prosecute any alcohol or drug abuse patient.[facility]onIn the event this information is protected by the Federal Confidentiality of Alcohol and Drug Abuse Patient Records regulations: The Federal rules restrict any use of the information to criminally investigate or prosecute any alcohol or drug abuse patient.[facility]onIn the event this information is protected by the Federal Confidentiality of Alcohol and Drug Abuse Patient Records regulations: The Federal rules restrict any use of the information to criminally investigate or prosecute any alcohol or drug abuse patient.[facility]onIn the event this information is protected by the Federal Confidentiality of Alcohol and Drug Abuse Patient Records regulations: The Federal rules restrict any use of the information to criminally investigate or prosecute any alcohol or drug abuse patient.[facility]onIn the event this information is protected by the Federal Confidentiality of Alcohol and Drug Abuse Patient Records regulations: The Federal rules restrict any use of the information to criminally investigate or prosecute any alcohol or drug abuse patient.[facility] CantonIn the event this information is protected by the Federal Confidentiality of Alcohol and Drug Abuse Patient Records regulations: The Federal rules restrict any use of the information to criminally investigate or prosecute any alcohol or drug abuse patient.[facility] CantonIn the event this information is protected by the Federal Confidentiality of Alcohol and Drug Abuse Patient Records regulations: The Federal rules restrict any use of the information to criminally investigate or prosecute any alcohol or drug abuse patient.[facility] CantonIn the event this information is protected by the Federal Confidentiality of Alcohol and Drug Abuse Patient Records regulations: The Federal rules restrict any use of the information to criminally investigate or prosecute any alcohol or drug abuse patient.[facility] CantonIn the event this information is protected by the Federal Confidentiality of Alcohol and Drug Abuse Patient Records regulations: The Federal rules restrict any use of the information to criminally investigate or prosecute any alcohol or drug abuse patient.[facility] CantonIn the event this information is protected by the Federal Confidentiality of Alcohol and Drug Abuse Patient Records regulations: The Federal rules restrict any use of the information to criminally investigate or prosecute any alcohol or drug abuse patient.[facility] CantonIn the event this information is protected by the Federal Confidentiality of Alcohol and Drug Abuse Patient Records regulations: The Federal rules restrict any use of the information to criminally investigate or prosecute any alcohol or drug abuse patient.[facility] CantonIn the event this information is protected by the Federal Confidentiality of Alcohol and Drug Abuse Patient Records regulations: The Federal rules restrict any use of the information to criminally investigate or prosecute any alcohol or drug abuse patient.[facility] CantonIn the event this information is protected by the Federal Confidentiality of Alcohol and Drug Abuse Patient Records regulations: The Federal rules restrict any use of the information to criminally investigate or prosecute any alcohol or drug abuse patient.[facility] Care Teams (unrecognized sec tion and content) [...] GeneralInternal Medicine08/04/14 Marco A Esqueda MD [address] [place], [place] [address] PhysicianHematology/Oncology11/02/21 Christo Howard, 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.[employer]SI[employer] [address] [address] Nurse PractitionerHematology/Oncology11/02/21 Clementine Aguilar, ANITHA [address] [place] [address] Specialty Care CoordinatorHematology/Oncology11/02/21Te MemberRelationship SpecialtyStart DateEnd Date Jamar Fall Jessica, DO PCP - GeneralInternal Medicine08/04/14 Marco A Esqueda MD [address] [place] [address] PhysicianHematology/Oncology11/02/21 Christo Howard, 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.[employer]SI[employer]ACH [address] [place] [address] Nurse PractitionerHematology/Oncology11/02/21 Clementine Aguilar, RN [address] [place] [address] Specialty Care CoordinatorHematology/Oncology11/02/21Team MemberRelationship SpecialtyStart DateEnd Date Jamar Fall, DO PCP - GeneralInternal Medicine08/04/14 Marco A Esqueda MD [address] [place] [address] PhysicianHematology/Oncology11/02/21 Christo Howard, 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.ASSI[employer]ACH [address] [place] [address] Nurse PractitionerHematology/Oncology11/02/21 Clementine Aguilar, RN [address] [place] [address] Specialty Care CoordinatorHematology/Oncology11/02/21Team MemberRelationship SpecialtyStart DateEnd Date Jamar Fall, DO PCP - GeneralInternal Medicine08/04/14 Marco A Esqueda MD [address] [place] [address] PhysicianHematology/Oncology11/02/21 Christo Howard, 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.ASSIST[employer]ACH [address] [place] [address] Nurse PractitionerHematology/Oncology11/02/21 Clementine Aguilar, RN [address] [place] [address] Specialty Care CoordinatorHematology/Oncology11/02/21Team MemberRelationship SpecialtyStart DateEnd Date Jamar Fall, DO PCP - GeneralInternal Medicine08/04/14 Marco A Esqueda MD [address] [place] [address] PhysicianHematology/Oncology11/02/21 Christo Howard, 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.ASSIST[employer]ACH [address] [place] [address] Nurse PractitionerHematology/Oncology11/02/21 Clementine Aguilar, RN [address] [place] [address] Specialty Care CoordinatorHematology/Oncology11/02/21Team MemberRelationship SpecialtyStart DateEnd Date Jamar Fall, DO PCP - GeneralInternal Medicine08/04/14 Marco A Esqueda MD [address] [place] [address] PhysicianHematology/Oncology11/02/21 Christo Howard, 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.ASSI[employer]ACH [address] [place] [address] Nurse PractitionerHematology/Oncology11/02/21 Clementine Aguilar, ANITHA [address] [place] [address] Specialty Care CoordinatorHematology/Oncology11/02/21Team MemberRelationship SpecialtyStart DateEnd Date Jamar Fall, DO PCP - GeneralInternal Medicine08/04/14 Marco A Esqueda MD [address] [place] [address] PhysicianHematology/Oncology11/02/21 Christo Howard, 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.ASSI[employer]ACH [address] [place] [address] Nurse PractitionerHematology/Oncology11/02/21 Clementine Aguilar, RN [address] [place] [address] Specialty Care CoordinatorHematology/Oncology11/02/21Team MemberRelationship SpecialtyStart DateEnd Date Jamar Fall, DO PCP - GeneralInternal Medicine08/04/14 Marco A Esqueda MD [address] [place] [address] PhysicianHematology/Oncology11/02/21 Christo Howard, 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.ASSI[employer]ACH [address] [place] [address] Nurse PractitionerHematology/Oncology11/02/21 Clementine Aguilar, RN [address] [place] [address] Specialty Care CoordinatorHematology/Oncology11/02/21Team MemberRelationship SpecialtyStart DateEnd Date Jamar Fall, DO PCP - GeneralInternal Medicine08/04/14 Marco A Esqueda MD [address] [place] [address] PhysicianHematology/Oncology11/02/21 Christo Howard, 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.ASSI[employer]ACH [address] [place] [address] Nurse PractitionerHematology/Oncology11/02/21 Clementine Aguilar, ANITHA [address] [place] [address] Specialty Care CoordinatorHematology/Oncology11/02/21Team MemberRelationship SpecialtyStart DateEnd Date Jamar Fall, DO PCP - GeneralInternal Medicine08/04/14 Marco A Esqueda MD [address] [place] [address] PhysicianHematology/Oncology11/02/21 Christo Howard, 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.ASSI[employer]ACH [address] [place] [address] Nurse PractitionerHematology/Oncology11/02/21 Clementine Aguilar, ANITHA [address] [place] [address] Specialty Care CoordinatorHematology/Oncology11/02/21Team MemberRelationship SpecialtyStart DateEnd Date Jamar Fall, DO PCP - GeneralInternal Medicine08/04/14 Marco A Esqueda MD [address] [place] [address] PhysicianHematology/Oncology11/02/21 Christo Howard, 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.ASSI[employer]ACH [address] [place] [address] Nurse PractitionerHematology/Oncology11/02/21 Clementine Aguilar, ANITHA [address] [place] [address] Specialty Care CoordinatorHematology/Oncology11/02/21Team MemberRelationship SpecialtyStart DateEnd Date Jamar Fall, DO PCP - GeneralInternal Medicine08/04/14 Marco A Esqueda MD [address] [place] [address] PhysicianHematology/Oncology11/02/21 Christo Howard, 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.ASSI[employer]ACH [address] [place] [address] Nurse PractitionerHematology/Oncology11/02/21 Clementine Aguilar, ANITHA [address] [place] [address] Specialty Care CoordinatorHematology/Oncology11/02/21Team MemberRelationship SpecialtyStart DateEnd Date Jamar Fall DO PCP - GeneralInternal Medicine08/04/14 Marco A Esqueda MD [address] [place] [address] PhysicianHematology/Oncology11/02/21 Christo Howard, 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.ASSI[employer]ACH [address] [place] [address] Nurse PractitionerHematology/Oncology11/02/21 Clementine Aguilar, ANITHA [address] [place] [address] Specialty Care CoordinatorHematology/Oncology11/02/21Team MemberRelationship SpecialtyStart DateEnd Date Jamar Fall DO PCP - GeneralInternal Medicine08/04/14 Marco A Esqueda MD [address] [place] [address] [place] [address] PhysicianHematology/Oncology11/02/21 Christo Howard, 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.ASSI[employer]ACH [address] [place] [address] [place] [address] Nurse PractitionerHematology/Oncology11/02/21 Clementine Aguilar, ANITHA [address] [place] [address] Specialty Care CoordinatorHematology/Oncology11/02/21Team MemberRelationship SpecialtyStart DateEnd Date Jamar Fall DO PCP - GeneralInternal Medicine08/04/14 Marco A Esqueda MD [address] [facility] [address] PhysicianHematology/Oncology4 Christo Howard, 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.ASSISTANT [employer] COACH [address] [facility] [place] [address] Nurse PractitionerHematology/Oncology11/02/21 Clementine Aguilar, ANITHA [address] [facility] [place] [address] Specialty Care CoordinatorHematology/Oncology11/02/21Team MemberRelationship SpecialtyStart DateEnd Date Jamar Fall DO PCP - GeneralInternal Medicine08/04/14 Marco A Esqueda MD [address] [facility] [place] [address] PhysicianHematology/Oncology11/02/21 Christo Howard, 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.ASSISTANT [employer] COACH [address] [facility] [place] [address] Nurse PractitionerHematology/Oncology11/02/21 Clementine Aguilar, ANITHA [address] [facility] [place] [address] Specialty Care CoordinatorHematology/Oncology11/02/21Team MemberRelationship SpecialtyStart DateEnd Date Jamar Fall DO PCP - GeneralInternal Medicine08/04/14 Marco A Esqueda MD [address] [place] [address] [place] [address] PhysicianHematology/Oncology11/02/21 Christo Howard APRN.[employer]SI[employer]ACH [address] [place] [address] [place] [address] Nurse PractitionerHematology/Oncology11/02/21 Clementine Aguilar, ANITHA [address] [place] [address] [place] [address] Specialty Care CoordinatorHematology/Oncology11/02/21Team MemberRelationship SpecialtyStart DateEnd Date Jamar Fall MD [address] [place] [id number] PCP - GeneralInternal Ewrbtutf32/15/23Team MemberRelationshipSpecialtyStart Date End Date Jamar Fall MD [address] [place] [id number] PCP - GeneralInternal Swtuduhf10/15/23Te MemberRelationshipSpecialtyStart Date End Date Jamar Fall DO PCP - GeneralInternal Medicine08/04/14 Marco A Esqueda MD [address] [place] [address] [place] [address] PhysicianHematology/Oncology11/02/21 Christo Howard APRN.ASSISTANT [employer]ACH [address] [place] [address] [place] [address] Nurse PractitionerHematology/Oncology11/02/21 Clementine Aguilar, ANITHA [address] [facility] [address] Specialty Care CoordinatorHematology/Oncology11/02/21Team MemberRelationship SpecialtyStart DateEnd Date Jamar Fall DO PCP - GeneralInternal Medicine08/04/14 Marco A Esqueda MD [address] [place] [address] [place] [address] PhysicianHematology/Oncology11/02/21 Christo Howard APRN.ASSISTANT [employer]ACH [address] [place] [address] [place] [address] Nurse PractitionerHematology/Oncology11/02/21 Clementine Aguilar, ANITHA [address] [place] [address] [place] [address] Specialty Care CoordinatorHematology/Oncology11/02/21 Team Status: Active [...] - GeneralInternal Medicine08/04/14 Marco A Esqueda MD [address] [place] [address] [place] [address] PhysicianHematology/Oncology11/02/21 Christo Howard, 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.ASSI[employer]ACH [address] [facility] [address] Nurse PractitionerHematology/Oncology11/02/21 Clementine Aguilar, ANITHA [address] [facility] [place] [address] Specialty Care CoordinatorHematology/Oncology11/02/21Team MemberRelationship SpecialtyStart DateEnd Date Jamar Fall DO PCP - GeneralInternal Medicine08/04/14 Marco A Esqueda MD [address] [place] [address] [place] [address] PhysicianHematology/Oncology11/02/21 Christo Howard, 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.ASSIST[employer]ACH [address] [place] [address] [place] [address] Nurse PractitionerHematology/Oncology11/02/21 Clementine Aguilar RN [address] [facility] [place] [address] Specialty Care CoordinatorHematology/Oncology11/02/21 Team Status: Active Member [...] Medicine08/04/14 Marco A Esqueda MD [address] [facility] [place] [address] PhysicianHematology/Oncology11/02/21 Christo Howard, 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.ASSISTANT [employer]ACH [address] [place] [address] Nurse PractitionerHematology/Oncology11/02/21 Clementine Aguilar, ANITHA [address] [facility] [place] [address] Specialty Care CoordinatorHematology/Oncology11/02/21Team MemberRelationship SpecialtyStart DateEnd Date Jamar Fall DO PCP - GeneralInternal Medicine08/04/14 Marco A Esqueda MD [address] [facility] [place] [address] PhysicianHematology/Oncology11/02/21 Christo Howard, 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.ASSISTANT [employer]ACH [address] [facility] [place] [address] Nurse PractitionerHematology/Oncology11/02/21 Clementine Aguilar, ANITHA [address] [facility] [place] [address] Specialty Care CoordinatorHematology/Oncology11/02/21Team MemberRelationship SpecialtyStart DateEnd Date Jamar Fall DO PCP - GeneralInternal Medicine08/04/14 Marco A Esqueda MD [address] [facility] [place] [address] PhysicianHematology/Oncology11/02/21 Christo Howard, 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.ASSIST[employer]ACH [address] [place] [address] Nurse PractitionerHematology/Oncology11/02/21 Clementine Aguilar, ANITHA [address] [facility] [place] [address] Specialty Care CoordinatorHematology/Oncology11/02/21Team MemberRelationship SpecialtyStart DateEnd Date Jamar Fall DO PCP - GeneralInternal Medicine08/04/14 Marco A Esqueda MD [address] [facility] [place] [place] [address] PhysicianHematology/Oncology11/02/21 Christo Howard, 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.ASSISTANT [employer] SO[employer] COACH [address] [facility] [place] [place] [address] Nurse PractitionerHematology/Oncology11/02/21 Clementine Aguilar, ANITHA [address] [facility] [place] [place] [address] Specialty Care CoordinatorHematology/Oncology11/02/21Team MemberRelationship SpecialtyStart DateEnd Date Jamar Fall DO PCP - GeneralInternal Medicine08/04/14 Marco A Esqueda MD [address] [facility] [place] [address] PhysicianHematology/Oncology11/02/21 Christo Howard, 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.ASSISTANT [employer] SO[employer] COACH [address] [facility] [place] [address] Nurse PractitionerHematology/Oncology11/02/21 Clementine Aguilar, ANITHA [address] [place] [address] [place] [address] Specialty Care CoordinatorHematology/Oncology11/02/21Team MemberRelationship SpecialtyStart DateEnd Date Jamar Fall DO [address] [place] [phone] PCP - GeneralInternal Wmchpvra83/15/23Team MemberRelationshipSpecialtyStart Date End Date Jamar Fall DO [address] [place] [address] PCP - GeneralInternal Bxjryqeo81/15/23 Reason for Visit (unrecogniz ed section and content) ReasonCommentsLab OrdersReasonCommentsMedication QuestionLupron Start DateReason Onset DateCommentsOpened In Error2ReasonCommentsCare Coordination Testosterone ResultsReasonCommentsMedication AuthorizationXtandiReasonComments Medication UpdateXtandi free drugReasonCommentsCare CoordinationCovid Vaccine ReasonCommentsOral Anti-cancer Agent EducationEnzalutamideReasonCommentsCare CoordinationMedication Start Date - EnzalutamideReasonCommentsCare Coordination Medication UpdateReasonCommentsProstate Cancer2 week follow upSpecialtyDiagnoses / ProceduresReferred By ContactReferred To Contact Diagnoses Malignant neoplasm of prostate (HCC) Procedures DENOSUMAB INJECTION Marco A Esqueda MD [address] [place] [address] [place] [address] Himanshu Treat Ariella [address] [place] [address] Referral IDStatusReasonStart DateExpiration DateVisits RequestedVisits [id number]/28/202212/31/[id number] CoordinationRefill QuestionReasonCommentsProstate Cancer1 month follow upReason CommentsProstate CancerFollow upReasonCommentsProstate Cancer3 month follow up ReasonCommentsProstate CancerReasonCommentsProstate CancerFollow upReason CommentsSuspicious Skin LesionSpecialtyDiagnoses / ProceduresReferred By Contact Referred To ContactDermatology Diagnoses lesion of skin of R ear Marco A Esqueda MD [address] [place] [address] [place] [address] Lety Holguin MD [address] [place] [address] Referral IDStatusReasonStart DateExpiration DateVisits RequestedVisits [id number]/[id number] Cancer3 month follow upEstablished PatientReasonCommentsRefill RequestReasonOnset DateComments Refill Dhqrtum46/16/2024ReasonOnset DateCommentsRefill Szkmpep16/23/2024Reason Onset DateCommentsLab Oopohj5207/25/2024ReasonCommentsSkin Check (unrecognized sect ion and content) No Status Records FoundNo Status Records FoundNo Status Records FoundNo Status Records FoundNo Status Records FoundNo Status Records Found INFORMATION SOURCE (unrecogn ized section and content) DATE CREATED AUTHOR 10/31/2022 [facility] DATE CREATED AUTHOR AUTHOR'S ORGANIZ ATION 03/02/2024 [facility] DATE CREATED AUTHOR AUTHOR'S ORGANIZ ATION 02/28/2025 [facility] DATE CREATED AUTHOR AUTHOR'S ORGANIZ ATION 04/01/2025 [facility] DATE CREATED AUTHOR AUTHOR'S ORGANIZ ATION 04/07/2025 [facility] DATE CREATED AUTHOR AUTHOR'S ORGANIZ ATION 05/24/2025 [facility] Inactive Administered Medications - up to 3 most recent administrations Administered Medications (un recognized section and content) Medication OrderMAR ActionAction DateDoseRateSite denosumab 120 mg injection (XGEVA) 120 mg, SUBCUTANEOUS, ONCE, 1 dose, On Lee Ann 11/02/23 at 1000, REFRIGERATE Given11/02/2023 9:50 AM DKC949 mgArm, Left Goals (unrecognized section and content) [...] BE BASED ON THE PRIMARY CLINICAL RECORDS. [facility]Law[facility]. provides no warranty or guarantee of the accuracy or completeness of information in this document.
--- OUTSIDE RECORDS SUMMARY | 2025-06-09 07:08 | XMS_ITS | Clinical Summary ---
Author Organization [facility] Healthcare Address [address] [place] [address] Care Team Providers Care Information Systems Security Manager Name Role Phone Jamar Jones DO Primary Care Provider [phone] Allergies Active AllergyReactionsCriticalityNoted DateCommentsPenicillin 06/25/2001 Other Reaction(s): HIVES, Unknown Apysuqsdbck29/20/2002 Other Reaction(s): Unknown Medications MedicationSigDispense QuantityRefillsLast FilledStart [...] g 08/28/2023ctive Active Problems ProblemNoted DateDiagnosed DateVasomotor hcclrjzy62/20/7865Oxnqwpvafn30/16/2023 Coronary hpyzybmoziyueknp28/16/2023 Overview (06/01/2023): Jun 01, 2016 Entered By: HARVINDER TORIBIO Comment: cabg X 3 (07/2014) Diabetes uijrnuvp19/16/2023Impaired hudxttj4506/01/20232302Wcuhocm95/16/2023Essential zigpftoykprg31/16/2023Sensorineural hearing loss, mpveczdpf29/16/2023Sleep apnea 06/01/2023Type 2 diabetes mellitus without ozevwarnlegfl48/16/2023Nonrheumatic aortic (valve) ircaokuu99/16/2023Malignant neoplasm of qunrndvn38/21/2015 Overview (06/01/2023): Jun 01, 2016 Entered By: HARVINDER TORIBIO Comment: PROSTATECTOMY 10/2014 Resolved Problems ProblemNoted DateDiagnosed DateResolved DatePrimary mzhdsvrhatei40/16/2023 06/01/2023 Immunizations ImmunizationAdministration DatesNext DuePneumococcal Polysaccharide PPSV23 06/12/2017,06/01/2017,04/29/2015,06/07/2010Zoster, Qycpgkifcdj32/04/2019, 06/11/2018 Family History Medical HistoryRelationNameCommentsHeart failureFatherCancerMotherRelationName StatusCommentsFatherDeceasedMotherDeceased [...] InformationValueDate RecordedSex Assigned at BirthNot on fileLegal YwnCawf0509/28/2022 8:21 PM EDTGender IdentityNot on file Sexual OrientationNot on file Last Filed Vital Signs Vital SignReadingTime TakenCommentsBlood Onewfgsg701/7803/ 8:23 AM EDT Pulse--Temperature--Respiratory Rate--Oxygen Saturation--Inhaled Oxygen Concentration--Jazlas80.3 kg (208 lb)06/05/2023 11:24 AM WWBYguflc106.9 cm (5' 6.5 )06/05/2023 11:24 AM ESTBody Mass Index33.0706/05/2023 11:24 AM EST Plan of Treatment DateTypeDepartmentCare Team (Latest Contact Info)Alvllzgfkah91/13/2026 10:30 AM EDTOffice Visit [facility] [address] [place] [address] Deisy Boo APRN-CREEL CLERK [address] [place], [place] [id number] Health MaintenanceDue DateLast DoneCommentsCOVID-19 Vaccine ( season) 510/12/2021, 01/21/2022, 05/17/2021, Additional history existsInfluenza Vaccine (#1)509/04/2024, 05/01/2023, 04/28/2022, Additional history existsPneumococcal Vaccine: 65+ JjjfnWmadhsvot53/27/2017, 06/01/2017, 05/11/2015, Additional history exists Insurance MemberSubscriberPlan / Payer (Effective 2012-Present)Name:Rajesh Felix Member ID:[id number] Relation to Subscriber:SelfName:Rajesh Felix Subscriber ID:[id number] Payer ID:STATE Group ID:Not on file Type:Medicare Address: [address] [id number] Care Teams Team MemberRelationshipSpecialtyStart DateEnd Date Jamar Jones, [address] [facility] [place] [address] PCP - GeneralInternal Mdfpeput85/15/23
--- OUTSIDE RECORDS SUMMARY | 2025-06-09 07:08 | XMS_ITS | Patient Health Record ---
Author Organization [facility] Address [address] [place] [address] Care Team Providers Care Pattern Stamper Name Role Phone LISSA FALL DO Primary Care Provider Unavaila Cristhian Santos Unavailable [phone] PHILIP TALAVERA CNP Unavailable Unavailable Allergies Allergen [...] in the past year?Monthly or less (1 point)Uivkme7KemythlqvvpqptPqzqlhol Tobacco Control (Standard) Question Answer Notes Tobacco use: Nonsmoker Problems Problem Type SNOMED Code ICD Code Onset Dates Problem Status W/U Status Risk Notes Problem Carpal tunnel syndrome (95728089) Right c arpal tunnel syndrome (G56.01) ActiveconfirmedProblemCarpal tunnel syndrome (58645091)Left carpal tunnel syndrome (G56.02)ActiveconfirmedProblemParesthesia of both hands (894033446) Paresthesia of both hands (R20.2)ActiveconfirmedProblemBilateral carpal tunnel syndrome (81692395619560776)Bilateral carpal tunnel syndrome (G56.03)Active confirmedProblemArthritis of right hand (977541255752258)Arthritis of right hand (M19.041)Activeconfirmed Plan Of Treatment Pending Test Test Name Order Date EMG/NCS Upper Extremities, Bilateral CBC with diff, BMP, EKG 03/11/2024 Hemoglobin A1C 03/11/2024 Chem 8, Venous 03/11/2024 SURGERY SCHEDULING 03/11/2024 H A1C 01/29/2024 SCC- HAND 3 VIEW RIGHT 31724 01/29/2024 Insurance Providers Payer Name Payer Address Payer Phone Subscriber Number Group Number Insured Name Patient Relationship to Insured Coverage Start Date Coverage End Date [place] [address] [id number] Baljinder ONEIL - patient is the insuredMedicare MMOH AdvantagePO [address] [place], [place] [id number], THOMASSelf - patient is the insured Medical (General) History Medical History History 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
--- OUTSIDE RECORDS SUMMARY | 2025-06-09 07:08 | XMS_ITS | Encounter Summary ---
Author Organization [facility] Address [address] [place], [place] [id number] Care Team Providers Care Yard Specialist Name Role Phone Jamar Jones DO Primary Care Provider [phone] Christo Howard APRN.FELTMAKER Unavailable [phone] Clementine Aguilar RN Unavailable [phone] Saul Galdamez MD Unavailable [phone] Source Comments In the event this information is protected by the Federal Confidentiality of Alcohol and Drug AbusePatient Records regulations: The Federal rules restrict any use of the information to criminally investigate or prosecute any alcohol or drug abuse patient.[facility] Reason for Referral * Medication Prior Authorization - Pending ReviewSpecialtyDiagnoses / Procedures Referred By ContactReferred To Contact Diagnoses Malignant neoplasm of prostate (HCC) Christo Howard APRN.[address] [place] [address] Phone: tel: fax: Referral IDStatusReasonStart DateExpiration DateVisits RequestedVisits [id number] Reason for Visit * ReasonOnset DateCommentsRefill Viparsg0706/02/2025 Encounter Details DateTypeDepartmentCare Team (Latest Contact Info)Hjribhbwltw69/17/2025Refill [facility] [address] [place] [address] Aida Luo, [facility] [address] [place] [address] Refill Request Social History Tobacco UseTypesPacks/DayYears UsedDateSmoking Tobacco: NeverPassive Smoke Exposure: NeverSmokeless Tobacco: NeverAlcohol UseStandard Drinks/WeekComments Yes0 (1 standard drink = 0.6 oz pure alcohol)1 day/wkPHQ-2AnswerDate Recorded PHQ-2 dfoxv883/04/2025Area Deprivation IndexAnswerDate RecordedNational Score (1-100), lower number is lower myjb7293State Score (1-10), lower number is lower kkui0233Data from: https://www.neighborhoodatlas.[facility].edu/. Last address used for dyiapydkbms[address]/02/[birth year]23Sex and Gender InformationValueDate Recorded Sex Assigned at WvecrUnzs14/29/2022 11:48 AM EDTLegal UwuQqcc7708/04/2014 8:03 AM ESTGender FgrifcfkUhoi33/29/2022 11:48 AM EDTSexual OrientationStraight 02/11/2022 11:48 AM EDTdocumented as of this encounter Functional Status * Are you deaf or do you have serious difficulty hearing?AnswerDate of RtfhjljamdNzjkbiCh25/03/2015 10:35 AM Santiago Palacios LPN * Are you blind or do you have serious difficulty seeing, even when wearing glasses?AnswerDate of TksmbkcpxdPyikvkDsu49/03/2015 10:35 AM Santiago Palacios LPN * Do you have serious difficulty walking or climbing stairs?AnswerDate of ShuxzgevujBfygiuOp18/03/2015 10:35 AM ESTScott, Queenester M, MILK WAGON DRIVER * Do you have difficulty dressing or bathing?AnswerDate of AssessmentAuthorNo 08/19/2014 10:35 AM MaxiQueen costellochaz PatiARACELIS * Because of a physical, mental, or emotional condition, do you have difficulty doing errands alone such as visiting a doctor's office or shopping?AnswerDate of MdrhkrelsqYhlfcmNz90/03/2015 10:35 AM MaxiQueen costellochaz PatiARACELIS documented as of this encounter Mental Status * Because of a physical, mental, or emotional condition, do you have serious difficulty concentrating, remembering, or making decisions?AnswerEntry Date UbungwZp19/03/2015 10:35 AM SuzanneQueenchaz Krueger LPN documented in this encounter Miscellaneous Notes * Telephone Encounter - Christo Howard APRN.ALEXA - 06/02/2025 11:48 AM EST The following approved medication requests have been transmitted electronically. Requested Prescriptions Signed Prescriptions Disp Refills enzalutamide (XTANDI) 40 mg tablet 120 tablet 11 Sig: Take 4 tablets (160 mg) by mouth once daily. Authorizing Provider: CHRISTO HOWARD APRN.CNP documented in this encounter Plan of Treatment DateTypeDepartmentCare Team (Latest Contact Info)Ghodobazmga90/22/2026 11:30 AM ESTOffice Visit [facility] [address] [place] [address] 3 month follow up with xgeva inj08/14/2025 11:00 AM ESTVisit (SP) Office Hematology/Oncology [address] [place] [address] Chary Hodge APRN.FELTMAKER [address] [place] [address] 3 month follow up with xgeva inj08/14/2025 11:30 AM [facility] Hematology/Oncology [address] [facility] [place] [address] 3 month follow up with xgeva injdocumented as of this encounter Visit Diagnoses Diagnosis Malignant neoplasm of prostate (HCC)- Primary Malignant neoplasm of prostate documented in this encounter Care Teams Team MemberRelationshipSpecialtyStart DateEnd Date Jamar Jones DO PCP - GeneralInternal Medicine08/04/14 Christo Howard APRN.FELTMAKER [address] [place] [address] Nurse PractitionerHematology/Oncology11/02/21 Clementine Aguilar, ANITHA [address] [place] [address] Specialty Care CoordinatorHematology/Oncology11/02/21 Saul Galdamez MD [address] [place] [address] PhysicianHematology/Oncology01/21/25documented as of this encounter
--- OUTSIDE RECORDS SUMMARY | 2025-06-09 07:08 | XMS_ITS | Clinical Summary ---
Author Organization [facility] [facility] tem Address [id number] [address] [place] [address] Care Team Providers Care Sap Business Analyst Name Role Phone Unavailable Primary Care Provider Unavailabl e Allergies Active AllergyReactionsCriticalityNoted DateCommentsPenicillinsOther (See Comments)Fksgxn5108/06/2014 Other reaction(s): Unknown Medications MedicationSigDispense QuantityRefillsLast FilledStart [...] standard drink = 0.6 oz pure alcohol)ChildcareAnswerDate CwvvmwgvQomcjytewYpueary93/12/2019EmploymentAnswer Date HjgwekexDjxrlqzzooPtgsfvt02/12/2019Purpose - LifeAnswerDate RecordedPurpose and direction in daobOctnzhy69/11/2021Sex and Gender InformationValueDate RecordedSex Assigned at BirthNot on fileLegal QbiXwbv2702/19/2015 11:32 AM EDT Gender IdentityNot on fileSexual OrientationNot on file Last Filed Vital Signs Vital SignReadingTime TakenCommentsBlood Zwwvrqck769/6403 9:04 AM EDT Kbrss2094 9:04 AM EDTTemperature--Respiratory Rate--Oxygen Chzngsukcd98% 09/26/2019 8:59 AM EDTInhaled Oxygen Concentration--Vdgjpy544.4 kg (223 lb 9.6 oz)09/26/2019 8:59 AM LNTJxqtbh727.9 cm (5' 6.5 )09/26/2019 8:59 AM EDTBody Mass Index35.55009/26/2019 8:59 AM EDT Plan of Treatment Health MaintenanceDue DateLast DoneCommentsDepression Eanmupxbg98/31/1958Tobacco Avtrvbyas88/31/1958Zoster (Shingles) Vaccine (1 of 2)02/14/1996Fall Risk Nlbnthuum11/31/2011DTaP,Tdap and Td Vaccines (1 - Tdap)RSV ( or age 60+ yrs) (1 - 1-dose 75+ series)2021Influenza Vaccine 03/17/2025 Medical Devices Not on file Insurance
--- OUTSIDE RECORDS SUMMARY | 2025-06-09 07:08 | XMS_ITS | Clinical Summary ---
Author Organization [facility] Address [address] [place], [place] [address] Care Team Providers Care Credit Report Checker Name Role Phone Jamar Jones DO Primary Care Provider [phone] Galina Wall APRN.VOCAL MUSIC INSTRUCTOR Unavailable [phone] Clementine Aguilar RN Unavailable [phone] Saul Galdamez MD Unavailable [phone] Allergies Active AllergyReactionsCriticalityNoted IizoDwnsjzwwKfsbdzykzyaLxtrvnd51/21/2015 EgjkwmycctzIstdiqh08/20/2002 Medications MedicationSigDispense QuantityRefillsLast FilledStart DateEnd DateStatus lisinopril-hydrochlorothiazide [...] 1,000 mg by mouth once daily. 08/17/2021ctive Osysdmgitpqve-Bhqbntms-Slvgnu (MULTIVITAMIN 50 PLUS) tab Take 1 tablet by mouth once daily.Active metoprolol succinate ER (TOPROL XL) 25 mg 24 hr tablet Take by mouth.02/04/2019Active Calcium Citrate-Vitamin D3 200 mg-6.25 mcg (250 unit) tab Take 2 tablets by mouth once daily.04/28/2022ctive enzalutamide (XTANDI) 40 mg tablet Indications:Malignant neoplasm of prostate (HCC)Take 4 tablets (160 mg) by mouth once daily. 120 tablet tive enzalutamide (XTANDI) 40 mg tablet Take 4 tablets (160 mg) by mouth once daily. 120 tablet 111/04/2025Discontinued enzalutamide (XTANDI) 40 mg tablet Take 4 tablets (160 mg) by mouth once daily. 120 tablet Discontinued Active Problems ProblemNoted DateDiagnosed DateMalignant neoplasm of gdadhxht42/21/2015 Encounters DateTypeDepartmentCare UokpNagzjaeqrsb12/17/2025[facility] [address] [place] [address] Aida Luo RPh Refill Eewwhoo2105/26/2025Ref[facility] [address] [place] [address] Saul Galdamez MD Refill Request (Xtandi)05/22/2025 11:30 AM ESTInfusion Center Hematology/Oncology [address] [place] [address] [place] [address] Malignant neoplasm of prostate (HCC) (Primary Dx)05/22/2025 11:00 AM ESTVisit () Office Hematology/Oncology [address] [place] [address] [place] [address] Chary Hodge, ROCHLELE.VOCAL MUSIC INSTRUCTOR Malignant neoplasm of prostate (HCC) (Primary Dx); Anemia, unspecified type; Other osteoporosis without current pathological fracture; Secondary malignant neoplasm of bone (HCC); Encounter for antineoplastic chemotherapy; Lactose savovwwurfe44/06/4181Aeofbt50/28/2025Travelfrom Last 3 Months Immunizations ImmunizationAdministration DatesNext DueAS03 hblytjpw05/11/2018COVID-19 original vaccine, full dose, monovalent (MODERNA)01/21/2022,05/17/2021,09/22/2020, 1COVID-19 vaccine (BRIANA)02/10/2021COVID-19 vaccine, age 12+ yr (MODERNA SPIKEVAX)4COVID-19 vaccine, age 12+ yr, bivalent (MODERNA) 04/21/2022iphtheria tetanus pertussis (DTaP) vaccine, unspecified formulation 06/19/2013,01/14/2003influenza [...] 23 valent (PNEUMOVAX 23)06/12/2017,06/01/2017,04/29/2015,06/23/2010,06/07/2010, 01/14/2010pneumococcal vaccine, unspecified pgapgwmdvtj39/22/2010respiratory syncytial virus (RSV) vaccine, bivalent (ABRYSVO)04/26/2024tetanus diphtheria (Td) vaccine, adult, non-vyeqdbsq16/04/2013tetanus diphtheria (Td) vaccine, adult, unspecified gxzklfdjqki85/27/2003tetanus diphtheria (Td) vaccine, age 7+ yr, 5 Lf tetanus, PF (TENIVAC)04/24/2013tetanus diphtheria pertussis (Tdap) vaccine, age 7+ yr (ADACEL, BOOSTRIX)04/25/2024zoster (RZV) vaccine, recombinant (SHINGRIX)08/20/2018,06/11/2018zoster (ZVL) vaccine, live (ZOSTAVAX)06/27/2012 Family History Medical HistoryRelationCommentsCancerMotherCancerRelationStatusCommentsMother Social History Tobacco UseTypesPacks/DayYears UsedDateSmoking Tobacco: NeverPassive Smoke Exposure: NeverSmokeless Tobacco: Never Tobacco Cessation:Counseling Given: Not Answered Alcohol UseStandard Drinks/WeekCommentsYes0 (1 standard drink = 0.6 oz pure alcohol)1 day/wkPHQ-2AnswerDate RecordedPHQ-2 wpzub683/04/2025Area Deprivation IndexAnswerDate RecordedNational Score (1-100), lower number is lower risk80 02/02/2023State Score (1-10), lower number is lower huev4503Data from: https://www.neighborhoodatlas.[facility].edu/. Last address used for ikxaectxpxg[address]02/02/2023Sex and Gender InformationValueDate Recorded Sex Assigned at SmwdfOhff64/29/2022 11:48 AM EDTLegal OqxUmid4808/04/2014 8:03 AM ESTGender UbikamwgLpcs58/29/2022 11:48 AM EDTSexual OrientationStraight 02/11/2022 11:48 AM EDT Last Filed Vital Signs Vital SignReadingTime TakenCommentsBlood Ufrogoti049/56107/22/2024 10:35 AM EST Pwtty314605/22/2025 10:35 AM DXFDngbxedksnt56.2 ??C (97.2 ??F)05/22/2025 10:35 AM ESTRespiratory Gmfv500807/22/2024 10:35 AM ESTOxygen Aolbjcyikp81%05/22/2025 10:35 AM ESTInhaled Oxygen Concentration--Pqajzd25.3 kg (203 lb 7.8 oz)05/22/2025 10:35 AM QSHYyxcgn742.6 cm (5' 5.98 )05/22/2025 10:35 AM ESTBody Mass Index32.86 05/22/2025 10:35 AM EST Plan of Treatment DateTypeDepartmentCare Team (Latest Contact Info)Asjjncyvffg68/22/2026 11:30 AM ESTOffice Visit [facility] [address] [place] [address] [place] [address] 3 month follow up with xgeva inj08/14/2025 11:00 AM ESTVisit (SP) Office Hematology/Oncology [address] [place] [address] Chary Hodge APRN.VOCAL MUSIC INSTRUCTOR [address] [place] [address] 3 month follow up with xgeva inj08/14/2025 11:[address] [facility] Hematology/Oncology [address] [place] [address] [place] [address] 3 month follow up with xgeva injHealth MaintenanceDue DateLast DoneComments Anxiety Tnyqsqbui08/31/1964Depression Oseepmgyz12/31/1964Medicare Annual Wellness Visit01/14/2011dvance Directive Rlqtknuhzf91/01/2025ovid-19 Vaccine ( season), 04/21/2022, 01/21/2022, Additional history existsDiabetes Mzobfxqqc28, 2025, 10/31/2024, Additional history existsDTaP,Tdap,Td Vaccine (6 - Td or Tdap)04/25/2034 04/25/2024, 06/19/2013, 06/19/2013, Additional history existsPneumococcal Vaccine: 50+Embkyavef58/27/2017, 06/01/2017, 06/01/2017, Additional history existsShingrix NdvyqsbHdmubdnni17/04/2019, 06/11/2018, 06/27/2012RSV Vaccine Teelaivro64/11/2024Influenza TsyhuhdZrybzbnso95/16/2025, 03/26/2024, 05/01/2023, Additional history exists Procedures Procedure NamePriorityDate/TimeAssociated DiagnosisCommentsERYTHROPOIETIN/EPO Qrymaci1505/15/2025 11:10 AM EDT Malignant neoplasm of prostate (HCC) Anemia, unspecified type FOLATE TZKJCVnisbzs37/30/2025 11:10 AM EDT Malignant neoplasm of prostate (HCC) Anemia, unspecified type VITAMIN B12 DQMKNFhluvcj09/30/2025 11:10 AM EDT Malignant neoplasm of prostate (HCC) Anemia, unspecified type FERRITIN CTRTmljekd29/30/2025 11:10 AM EDT Malignant neoplasm of prostate (HCC) Anemia, unspecified type IRON + QVUWSsfeejc47/30/2025 11:10 AM EDT Malignant neoplasm of prostate (HCC) Anemia, unspecified type COMPREHENSIVE METABOLIC FZCIVFptelef04/30/2025 11:10 AM EDT Malignant neoplasm of prostate (HCC) Anemia, unspecified type CBC + VHXHEbvgnmy90/30/2025 11:10 AM EDT Malignant neoplasm of prostate (HCC) Anemia, unspecified type PSA/PROSTSPECAG CYBPVerrmxf24/30/2025 11:10 AM EDT Malignant neoplasm of prostate (HCC) Anemia, unspecified type from Last 3 Months Results * VITAMIN B12 (05/15/2025 11:10 AM EDT)ComponentValueRef RangeTest Method Analysis TimePerformed AtPathologist SignatureVitamin [id number] - 1,245 pg/mL 05/15/2025 7:43 PM EDTCDAYTON CHILDR[facility] MAIN LABSpecimen (Source)Anatomical Location / LateralityCollection Method / VolumeCollection TimeReceived Time BloodBLOOD SPECIMEN / UnknownVenipuncture / Uppbuwe7005/15/2025 11:10 AM EDT 05/15/2025 11:11 AM EDT Narrative Authorizing ProviderResult TypeResult StatusVivek Denice JAMESLABORATORYFinal ResultPerforming OrganizationAddressCity/State/ZIP CodePhone Number [facility] [address] * PROSTATE-SPECIFIC ANTIGEN DIAGNOSTIC (05/15/2025 11:10 AM EDT)ComponentValue Ref RangeTest MethodAnalysis TimePerformed AtPathologist SignaturePSA0.39<2.60 ng/mL05/15/2025 7:29 PM EDTCDAYTON CHILDREN'S HOSPITAL MAIN LABComment:Total PSA test methodology used is the Electrochemiluminescence Immunoassay by [employer]. Total PSA values by differing methodologies cannot be interchanged.Specimen (Source)Anatomical Location / LateralityCollection Method / VolumeCollection TimeReceived TimeBloodBLOOD SPECIMEN / Unknown Venipuncture / Cddhuyt4805/15/2025 11:10 AM EDT1 11:11 AM EDT Narrative Authorizing ProviderResult TypeResult StatusVivek Abhyankar MDLABORATORYFinal ResultPerforming OrganizationAddressCity/State/ZIP CodePhone Number [facility] [address] [place] [address], * (ABNORMAL) IRON AND TIBC (05/15/2025 11:10 AM EDT)ComponentValueRef RangeTest MethodAnalysis TimePerformed AtPathologist HpxneqldiCvdc0342 - 186 ug/dL 05/15/2025 7:26 PM EDTCCLINT[facility]IN JQUCFYP930(H)232 - 386 ug/dL 05/15/2025 7:26 PM EDTCCLINT[facility] MAIN LABTransferrin Glcosgxtvw74.815.0 - 57.0 %05/15/2025 7:26 PM EDTCDAYTON CHILDR[facility] MAIN LABSpecimen (Source) Anatomical Location / LateralityCollection Method / VolumeCollection Time Received TimeBloodBLOOD SPECIMEN / UnknownVenipuncture / Qsjylym6905/15/2025 11:10 AM EDT1 11:11 AM EDT Narrative Authorizing ProviderResult TypeResult StatusSaul Galdamez MDLABORATORYFinal ResultPerforming OrganizationAddressCity/State/ZIP CodePhone Number [facility] [address] [place] [address], * FOLATE, SERUM (05/15/2025 11:10 AM EDT)ComponentValueRef RangeTest Method Analysis TimePerformed AtPathologist SignatureFolate>20.0>4.7 ng/mL05/15/2025 7:43 PM EDTCDAYTON CHILDREN'S [facility] MAIN LABComment: A result of > 20 ng/mL is not necessarily indicative of a pathologic or treatable condition: it reflects a limitation of the test methodology. Assay reference range: 4.8 to 24.2 ng/mL. Suitable for detection of folate deficiency. Reference: Folate III (Folate III) [package insert V 1.0 [place]]. [employer], [place], [place]: May 2015. Specimen (Source)Anatomical Location / LateralityCollection Method / Volume Collection TimeReceived TimeBloodBLOOD SPECIMEN / UnknownVenipuncture / Unknown 05/15/2025 11:10 AM EDT1 11:11 AM EDT Narrative Authorizing ProviderResult TypeResult StatusSaul Galdamez MDLABORATORYFinal ResultPerforming OrganizationAddressCity/State/ZIP CodePhone Number [facility] [address] [place] [address], * FERRITIN (05/15/2025 11:10 AM EDT)ComponentValueRef RangeTest MethodAnalysis TimePerformed AtPathologist VxpnjkmugUhmmmeoh16.930.3 - 565.7 ng/mL05/15/2025 7:43 PM EDTCOUR LAD[facility] LABSpecimen (Source)Anatomical Location / LateralityCollection Method / VolumeCollection TimeReceived TimeBloodBLOOD SPECIMEN / UnknownVenipuncture / Qvsselc5105/15/2025 11:10 AM EDT1 11:11 AM EDT Narrative Authorizing ProviderResult TypeResult StatusSaul Galdamez NJLABORATORYFinal ResultPerforming OrganizationAddressCity/State/ZIP CodePhone Number [facility] [place] [address], * ERYTHROPOIETIN/EPO (05/15/2025 11:10 AM EDT)ComponentValueRef RangeTest Method Analysis TimePerformed AtPathologist MvjbbkrweTutjccbznygirr55.52.6 - 18.5 mIU/mL05/16/2025 9:41 AM EDTCOUR LADY OF [facility] LABSpecimen (Source) Anatomical Location / LateralityCollection Method / VolumeCollection Time Received TimeBloodBLOOD SPECIMEN / UnknownVenipuncture / Knnpyte2105/15/2025 11:10 AM EDT1 11:11 AM EDT Narrative [facility] - 05/16/2025 9:41 AM EDT Test analyzed by the Esperanza DxI method. Authorizing ProviderResult TypeResult StatusSaul Learymiguel JAMESLABORATORYFinal ResultPerforming OrganizationAddressCity/State/ZIP CodePhone Number [facility] [place] [address], * (ABNORMAL) COMPREHENSIVE METABOLIC PANEL (05/15/2025 11:10 AM EDT)Component ValueRef RangeTest MethodAnalysis TimePerformed AtPathologist Signature Protein, Total6.56.3 - 8.0 g/dL05/15/2025 11:49 AM [facility] LABAlbumin4.23.9 - 4.9 g/dL05/15/2025 11:49 AM [facility] LABCalcium, Total10.08.5 - 10.2 mg/dL05/15/2025 11:49 AM [facility] LABBilirubin, Total0.80.2 - 1.3 mg/dL 05/15/2025 11:49 AM [facility] LABAlkaline Alzasnxeolg3357 - 113 U/L1 11:49 AM [facility] JFMIGW3333 - 40 U/L1 11:49 AM [facility] WKZBMQ9985 - 54 U/L1 11:49 AM [facility] EJKWciuemz623(H)74 - 99 mg/dL05/15/2025 11:49 AM [facility] LABComment: The [place] Diabetes Association (ADA) provides guidance for cutoff [...] Standards of Medical Care in Diabetes 2016, [place] Diabetes Association. Diabetes Care. 2016.39(Suppl 1). SIX484 - 24 mg/dL05/15/2025 11:49 AM [facility] LAB Creatinine0.730.73 - 1.22 mg/dL05/15/2025 11:49 AM [facility] ZZSNhprcp426166 - 144 mmol/L1 11:49 AM EDT[facility] LABPotassium4.73.7 - 5.1 mmol/L1 11:49 AM [facility] JOJNbjbiygv44884 - 107 mmol/L1 11:49 AM EDT [facility] SKMMN00406 - 30 mmol/L1 11:49 AM EDT [facility] LABAnion Rnw297 - 15 mmol/L1 11:49 AM EDTBL[facility] LABEstimated Glomerular Filtration Rate93 >=60 mL/min/1.73m 05/15/2025 11:49 AM [facility] LABComment:Estimated Glomerular Filtration Rate (eGFR) [...] VolumeCollection TimeReceived TimeBloodBLOOD SPECIMEN / UnknownVenipuncture / Kzzdldt7105/15/2025 11:10 AM EDT1 11:11 AM EDT Narrative Authorizing ProviderResult TypeResult StatusSaul Galdamez MDLABORATORYFinal ResultPerforming OrganizationAddressCity/State/ZIP CodePhone Number [facility] [address] [place] [address] * (ABNORMAL) COMPLETE BLOOD COUNT AND DIFFERENTIAL (05/15/2025 11:10 AM EDT) ComponentValueRef RangeTest MethodAnalysis TimePerformed AtPathologist SignatureWBC6.943.70 - 11.00 k/uL05/15/2025 11:27 AM [facility] LABRBC3.64(L)4.20 - 6.00 m/uL05/15/2025 11:27 AM [facility] JXWOggpccfuzc30.7(L)13.0 - 17.0 g/dL05/15/2025 11:27 AM [facility] SFGRxercquxkv96.8(L)39.0 - 51.0 % 05/15/2025 11:27 AM [facility] TWJBDL86.680.0 - 100.0 fL05/15/2025 11:27 AM [facility] WIJMEA08.1 26.0 - 34.0 pg05/15/2025 11:27 AM [facility] LABMCHC 33.630.5 - 36.0 g/dL05/15/2025 11:27 AM [facility] LABRDW-CV12.611.5 - 15.0 %05/15/2025 11:27 AM [facility] LABPlatelet Zbyvg728121 - 400 k/uL05/15/2025 11:27 AM [facility] CPGQXX51.49.0 - 12.7 fL05/15/2025 11:27 AM EDT [facility] LABNeutrophils %55.9%05/15/2025 11:27 AM EDT [facility] LABAbs Neut3.881.45 - 7.50 k/uL05/15/2025 11:27 AM [facility] LABLymphocytes %29.0%05/15/2025 11:27 AM [facility] LABAbs Lymph2.011.00 - 4.00 k/uL 05/15/2025 11:27 AM [facility] LABMonocytes %8.6% 05/15/2025 11:27 AM [facility] LABAbs Mono0.60<0.87 k/uL05/15/2025 11:27 AM [facility] LABEosinophils % 5.2%05/15/2025 11:27 AM EDTBL[facility] LABAbs Eosin0.36 <0.46 k/uL05/15/2025 11:27 AM [facility] LAB Basophils %0.4%05/15/2025 11:27 AM EDTBL[facility] LABAbs Baso0.03<0.11 k/uL05/15/2025 11:27 AM [facility] LAB Immature Granulocytes %0.9%05/15/2025 11:27 AM EDTBL[facility] LABAbs Immature Gran0.06<0.10 k/uL05/15/2025 11:27 AM [facility] LABNRBC0.0/100 WBC05/15/2025 11:27 AM [facility] LABAbsolute nRBC<0.01<0.01 k/uL05/15/2025 11:27 AM EDT [facility] LABDiff ThxeHrjo31/30/2025 11:27 AM EDT [facility] LABSpecimen (Source)Anatomical Location / LateralityCollection Method / VolumeCollection TimeReceived TimeBloodBLOOD SPECIMEN / UnknownVenipuncture / Nskuiet4705/15/2025 11:10 AM EDT1 11:11 AM EDT Narrative Authorizing ProviderResult TypeResult StatusSaul Galdamez MDLABORATORYFinal ResultPerforming OrganizationAddressCity/State/ZIP CodePhone Number [facility] [address] [place] [address] from Last 3 Months Insurance Care Teams Team MemberRelationshipSpecialtyStart DateEnd Date Jamar Jones DO PCP - GeneralInternal Medicine08/04/14 Galina Wall APRN.VOCAL MUSIC INSTRUCTOR [address] [address] Nurse PractitionerHematology/Oncology11/02/21 Clementine Aguilar, ANITHA [address] [facility] [place] [address] Specialty Care CoordinatorHematology/Oncology11/02/21 Saul Galdamez MD [address] [place] [address] PhysicianHematology/Oncology01/21/25
--- OUTSIDE RECORDS SUMMARY | 2025-06-09 07:08 | XMS_ITS | Encounter Summary ---
Author Organization [facility] Address [address] [place] [address] Care Team Providers Care Health Lead Name Role Phone Jamar Jones DO Primary Care Provider [phone] Encounter Details DateTypeDepartmentCare Team (Latest Contact Info)Ivtlqbvbzba80/21/2025Results Follow-Up [facility] [address] [facility] [place] [address] Katelyn Quiroz CNP [address] [place] [address] Lexiscan Stress Myocardial Perfusion Imaging Social History Tobacco UseTypesPacks/DayYears UsedDateSmoking Tobacco: NeverSmokeless Tobacco: NeverAlcohol UseStandard Drinks/WeekCommentsNot Currently0 (1 standard drink = 0.6 oz pure alcohol)[place] Safety & EnvironmentAnswerDate RecordedFear of Current or Ex-PartnerNot on file09/07/2023Emotionally AbusedNot on file09/07/2023hysically AbusedNot on file09/07/2023Sexually AbusedNot on file09/07/2023hysically or Sexually AbusedNot on file09/07/2023Sex and Gender InformationValueDate Recorded Sex Assigned at OtlavCeae50/03/2025 11:14 AM EDTLegal LviUsdp9001/12/2022 11:25 PM EDTGender SdmwhanyHafb31/03/2025 11:14 AM EDTSexual OrientationHeterosexual or Pufendxf77/03/2025 11:14 AM EDTdocumented as of this encounter Miscellaneous Notes * Result Encounter Note - Katelyn Quiroz CNP - 04/06/2025 10:10 AM EDT Please let him know his stress test was normal. 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 Recommend follow-up ECHO in 6 months. Recommend he see's Dr. Jones for further investigation into causes of his shortness of breath. Thanks! documented in this encounter Plan of Treatment Not on file documented as of this encounter Visit Diagnoses Not on filedocumented in this encounter Care Teams Team MemberRelationshipSpecialtyStart DateEnd Date Jamar Jones DO [address] [place] [address] PCP - Chkmvhc87/12/22documented as of this encounter
--- OUTSIDE RECORDS SUMMARY | 2025-06-09 07:08 | XMS_ITS | Encounter Summary ---
Author Organization [facility] Address [address] [place] [address] Care Team Providers Care Operations Clerk Name Role Phone Jamar Jones DO Primary Care Provider [phone] Christo Howard APRN.VIBRATING SCREED OPERATOR Unavailable [phone] Clementine Aguilar RN Unavailable [phone] Saul Galdamez MD Unavailable [phone] Source Comments In the event this information is protected by the Federal Confidentiality of Alcohol and Drug AbusePatient Records regulations: The Federal rules restrict any use of the information to criminally investigate or prosecute any alcohol or drug abuse patient.[facility] Reason for Visit * ReasonOnset DateCommentsRefill Japyvgs2905/26/2025Xtandi Encounter Details DateTypeDepartmentCare Team (Latest Contact Info)Ebwapwkglmh34/10/2025Refill [facility] [address] [place] [address] Saul Galdamez MD [address] [place] [address] [place] [address] Refill Request (Xtandi) Social History Tobacco UseTypesPacks/DayYears UsedDateSmoking Tobacco: NeverPassive Smoke Exposure: NeverSmokeless Tobacco: NeverAlcohol UseStandard Drinks/WeekComments Yes0 (1 standard drink = 0.6 oz pure alcohol)1 day/wkPHQ-2AnswerDate Recorded PHQ-2 mihml424/04/2025Area Deprivation IndexAnswerDate RecordedNational Score (1-100), lower number is lower lwvu3630State Score (1-10), lower number is lower ilfs5443Data from: https://www.neighborhoodatlas.[facility].edu/. Last address used for recjbnadwxa[address]/02/2023Sex and Gender InformationValueDate Recorded Sex Assigned at MflejGmhf35/29/2022 11:48 AM EDTLegal YawAgmk7808/04/2014 8:03 AM ESTGender AoqizxblWxcv57/29/2022 11:48 AM EDTSexual OrientationStraight 02/11/2022 11:48 AM EDTdocumented as of this encounter Functional Status * Are you deaf or do you have serious difficulty hearing?AnswerDate of FveqrygxcjRfevnwOj98/03/2015 10:35 AM Santiago Palacios LPN * Are you blind or do you have serious difficulty seeing, even when wearing glasses?AnswerDate of MtxuvsqeicRropoiTvy88/03/2015 10:35 AM Santiago Palacios LPN * Do you have serious difficulty walking or climbing stairs?AnswerDate of UhhnndadviWpbltaQl93/03/2015 10:35 AM Santiago Palacios LPN * Do you have difficulty dressing or bathing?AnswerDate of AssessmentAuthorNo 08/19/2014 10:35 AM Santiago Palacios LPN * Because of a physical, mental, or emotional condition, do you have difficulty doing errands alone such as visiting a doctor's office or shopping?AnswerDate of HxvfegkgvgCwwiviOq46/03/2015 10:35 AM Santiago Palacios LPN documented as of this encounter Mental Status * Because of a physical, mental, or emotional condition, do you have serious difficulty concentrating, remembering, or making decisions?AnswerEntry Date ZwajhdVu40/03/2015 10:35 AM Santiago Palacios LPN documented in [...] mouth once daily. Authorizing Provider: CHRISTO HOWARD APRN.VIBRATING SCREED OPERATOR * Telephone Encounter - Clementine Aguilar RN [...] Plan of Treatment DateTypeDepartmentCare Team (Latest Contact Info)Wlsulcdgstu10/22/2026 11:30 AM ESTOffice Visit [facility] [place] [facility] [address] [place] [address] [place] [address] 3 month follow up with xgeva inj08/14/2025 11:00 AM ESTVisit (SP) Office Hematology/Oncology [address] [place] [address] [place] [address] Chary Hodge APRN.VIBRATING SCREED OPERATOR [address] [facility] [place] [address] 3 month follow up with xgeva inj08/14/2025 11:30 AM [facility] Hematology/Oncology [address] [place] [address] [place] [address] 3 month follow up with xgeva injdocumented as of this encounter Visit Diagnoses Not on filedocumented in this encounter Care Teams Team MemberRelationshipSpecialtyStart DateEnd Date Jamar Jones DO PCP - GeneralInternal Medicine08/04/14 Christo Howard, GREEN BELT.VIBRATING SCREED OPERATOR [address] [place] [address] [place] [address] Nurse PractitionerHematology/Oncology11/02/21 Clementine Aguilar, ANITHA [address] [place] [address] [place] [address] Specialty Care CoordinatorHematology/Oncology11/02/21 Saul Galdamez MD [address] [place] [address] [place] [address] PhysicianHematology/Oncology01/21/25documented as of this encounter
[2025-06-09 07:20] VITALS: BP 136/64; PULSE 49; TEMP 36.4; O2SAT 94
[2025-06-09 08:30] VITALS: BP 144/70; PULSE 58; PULSE 60; O2SAT 95
[2025-06-09] MEDS: LIDOCAINE HCL 2% 400 MG/20 ML MDV INJ (08:31)
[2025-06-09] MEDS: IOHEXOL 240 MG/ML - 10 ML VIAL INJ (08:31)
[2025-06-09] MEDS: DEXAMETHASONE SOD PHOS 10 MG/ML VIAL INJ (08:32)
[2025-06-09] MEDS: BUPIVACAINE HCL 0.25% PF 25 MG/10 ML VIAL 2 ML INJ (08:32)
[2025-06-09 08:33] VITALS: BP 144/70
--- NOTE | 2025-06-09 08:33 | P.ON_ITS ---
Date of procedure: 06/09/25 Pre-op diagnosis: M54.12, pain due to cervical radiculopathy Post-op diagnosis: same as pre-op Procedure: Procedure: Left C3-4, 4-5 transforaminal epidural steroid injection Medications: Bupivacaine 0.25% 2cc, lidocaine 2% 1cc, dexamethasone 10mg The patient was seen and examined in the preoperative holding area.? Informed consent was obtained and placed on the chart.? Patient was brought to the medical procedure unit and placed in the prone position where a timeout was completed verifying the correct patient, procedure site, position, and planned special equipment using sterile aseptic technique.? Under direct fluoroscopic visualization a 25-gauge Quincke tipped spinal needle was advanced to the designated neural foramen where contrast dye was injected to show adequate spread.? The needle was inserted at level left C3-4. There was no evidence of vascular or adverse uptake.? Epidural spread was appreciated.? The above- mentioned injectate was then placed in a 1.5 mL aliquot preceded by negative aspiration.? The needle was removed. The needle was inserted and the procedure repeated at level left C4-5.? The surgery site was covered.? Patient was taken to the postprocedural recovery area and monitored for an appropriate length of time before found suitable for discharge in the accompaniment of a responsible adult. Anesthesia: Local Surgeon: Nicole Herrera Pathology: none sent Condition: stable Disposition: no change
== END 2025-06-09 08:39 | disposition home or self-care (01) ==
PROVIDERS: Visit Provider Anesthesiology
DX: M54.12 Radiculopathy, cervical region (principal); G89.29 Other chronic pain; E11.8 Type 2 diabetes mellitus with unspecified complications; Z79.84 Long term (current) use of oral hypoglycemic drugs
CPT/HCPCS: 36415; 64479; 64480; 82948; J0665; J1100; Q9966

== ENCOUNTER 2025-06-18 08:30 | Outpatient (OUT) | payer MEDICARE, OTHER, SELFPAY ==
--- OUTSIDE RECORDS SUMMARY | 2025-06-18 08:34 | XMS_ITS ---
Author Organization [facility] Address [address] [place], [place] [address] Care Team Providers Care Np Name Role Phone Jamar Jones DO Primary Care Provider [phone] Galina Wall GUITAR PLAYER.CONTROL ROOM SUPERVISOR Unavailable [phone] Clementine Aguilar RN Unavailable [phone] Saul Galdamez MD Unavailable [phone] Active Problems ProblemNoted DateDiagnosed DateMalignant neoplasm of liaxfcru61/21/2015 Current Treatment and Therapy Plans AMB BONE [...]
--- OUTSIDE RECORDS SUMMARY | 2025-06-18 08:34 | XMS_ITS | Encounter Summary ---
Author Organization [facility] Address [address] [place] [address] Care Team Providers Care Psychodramatist Name Role Phone Jamar Jones DO Primary Care Provider [phone] Encounter Details DateTypeDepartmentCare Team (Latest Contact Info)Qinvddqrzvc79/21/2025Results Follow-Up [facility] [address] [place] [address] Katelyn Quiroz CNP [address] [place] [address] Lexiscan Stress Myocardial Perfusion Imaging Social History Tobacco UseTypesPacks/DayYears UsedDateSmoking Tobacco: NeverSmokeless Tobacco: NeverAlcohol UseStandard Drinks/WeekCommentsNot Currently0 (1 standard drink = 0.6 oz pure alcohol)[place] Safety & EnvironmentAnswerDate RecordedFear of Current or Ex-PartnerNot on file09/07/2023Emotionally AbusedNot on file09/07/2023hysically AbusedNot on file09/07/2023Sexually AbusedNot on file09/07/2023hysically or Sexually AbusedNot on file09/07/2023Sex and Gender InformationValueDate Recorded Sex Assigned at FlwamHvvk32/03/2025 11:14 AM EDTLegal DhtEmio5801/12/2022 11:25 PM EDTGender GovyylxdQrjk59/03/2025 11:14 AM EDTSexual OrientationHeterosexual or Nqxxishm03/03/2025 11:14 AM EDTdocumented as of this encounter [...] MemberRelationshipSpecialtyStart DateEnd Date Jamar Jones DO [address] [place] [address] PCP - Ztwrpva37/12/22documented as of this encounter
--- OUTSIDE RECORDS SUMMARY | 2025-06-18 08:34 | XMS_ITS | Clinical Summary ---
Author Organization [employer] [facility] tem Address [id number] [address] [place] [address] Care Team Providers Care Flag Signaler Name Role Phone Unavailable Primary Care Provider Unavailabl e Allergies Active AllergyReactionsCriticalityNoted DateCommentsPenicillinsOther (See Comments)Jpprzg2808/06/2014 Other reaction(s): Unknown Medications MedicationSigDispense QuantityRefillsLast FilledStart [...] standard drink = 0.6 oz pure alcohol)ChildcareAnswerDate WduyseljWytxnltxePnghpae03/12/2019EmploymentAnswer Date NlsvgnyzJggbvskudoYikbxwy27/12/2019Purpose - LifeAnswerDate RecordedPurpose and direction in vtcoOshmrxx06/11/2021Sex and Gender InformationValueDate RecordedSex Assigned at BirthNot on fileLegal RmqMfmk7602/19/2015 11:32 AM EDT Gender IdentityNot on fileSexual OrientationNot on file Last Filed Vital Signs Vital SignReadingTime TakenCommentsBlood Ybojrnmt144/6403 9:04 AM EDT Eonlk7676 9:04 AM EDTTemperature--Respiratory Rate--Oxygen Psjzzhfzeg08% 09/26/2019 8:59 AM EDTInhaled Oxygen Concentration--Fmntyz152.4 kg (223 lb 9.6 oz)09/26/2019 8:59 AM OVNEjhozy960.9 cm (5' 6.5 )09/26/2019 8:59 AM EDTBody Mass Index35.55009/26/2019 8:59 AM EDT Plan of Treatment Health MaintenanceDue DateLast DoneCommentsDepression Wbtratkrm42/31/1958Tobacco Rvctchmjc40/31/1958Zoster (Shingles) Vaccine (1 of 2)02/14/1996Fall Risk Vgcyifmak17/31/2011DTaP,Tdap and Td Vaccines (1 - Tdap)RSV ( or age 60+ yrs) (1 - 1-dose 75+ series)2021Influenza Vaccine 03/17/2025 Medical Devices Not on file Insurance
--- OUTSIDE RECORDS SUMMARY | 2025-06-18 08:34 | XMS_ITS | Clinical Summary ---
Author Organization [facility] Address [address] [place] [address] Care Team Providers Care Journeyman Sheet Metal Worker Name Role Phone Jamar Jones DO Primary Care Provider [phone] Allergies Active AllergyReactionsCriticalityNoted DateCommentsPenicillinsHives,Other, EngduvcFextqd79/10/2001 Other reaction(s): Unknown Other Reaction(s): HIVES, Unknown [...] DateDiagnosed DateArthritis of right hand03/20/2025ilateral carpal tunnel xligeyzd97/04/2025arpal tunnel /04/2025Paresthesia of both hands03/20/2025ervical wcaiabnogef55/11/2024Mass of skin of left shoulder 03/27/2024Neck pain03/27/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 She may hold aspirin 5-7 days prior and resume post op. Please monitor hemodynamicscarefully and prevent any major fluid shifts. History of kavitugpaxsd71History of kidney kspetd4306/22/2023 06/22/2023History of prostate izepui61Hyperlipidemia06/22/2023 06/22/2023 Assessment & Plan (03/29/2024 3:07 PM EDT): Lipid abnormalities are stable continue Lipitor 40 mg daily lipid profile is well-controlled and liver function is normal Microscopic zvojdmxek19NocturiaRising PSA following treatment for malignant neoplasm of ehlmeuwd67 Vasomotor qrfwzrvc34nisocoriaoronary nplotyzkmjvtkmal13 Overview (06/22/2023): Jun 01, 2016 Entered By: [...] as tolerated and continue all medications. Essential vksopyfdhpmz26 Assessment & Plan (03/29/2024 3:07 PM EDT): Hypertension is well-controlled at 127/51 Continue lisinopril/hydrochlorothiazide and metoprolol. Renal function normal Impaired gkebgwh47Nonrheumatic aortic (valve) stenosis Assessment & Plan (03/29/2024 3:06 PM EDT): Reviewed echocardiogram from July 08 moderate aortic stenosis noted and reviewed echo with patient and his No concerning symptoms at this time patient would like symptoms including palpitations, lightheadeddizziness, syncope, chest pain, worsening shortness of breath and he voiced understanding Monitor with echocardiogram Vquvmbq91Sensorineural hearing loss, tklcyvawp28/16/2023 06/22/2023Sleep apneaType 2 diabetes mellitus without zxhgefuqfgjvz53iabetes ibqzxnyx86arcinoma of lngumsgt07 Overview (06/22/2023): S/p Radical 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 2018 Jun 01, 2016 Entered By: HARVINDER TORIBIO Comment: PROSTATECTOMY 10/2014Jun 01, 2016 Entered By: HARVINDER TORIBIO Comment: PROSTATECTOMY 10/2014 Encounters DateTypeDepartmentCare DrkzRblntmfqrzp56/29/2025Orders Only [facility] at [address] [address] Josie Soni MA Mitral valve stenosis and aortic valve stenosis (Primary Dx); Coronary artery disease, unspecified vessel or lesion type, unspecified whether angina present, unspecified whether chinik or transplanted heart; ALEXANDER (dyspnea on exertion)04/06/2025Results Follow-Up [facility] [address] [place] [address] Katelyn Quiroz CNP Lexiscan Stress Myocardial Perfusion Afcvrzo1104/04/2025Orders Only [facility] [address] [place] [address] ProviderCarmel MD 03/20/2025 9:20 AM EDTOffice Visit [facility] [address] [place] [address] Katelyn Quiroz CNP Mixed hyperlipidemia (Primary Dx); 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; 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; Adult general medical exam; Essential hypertension; Other fatigue; Nonrheumatic aortic (valve) stenosis; Hx of CABGfrom Last 3 Months Family History Medical HistoryRelationNameCommentsCoronary artery diseaseFatherRelationName StatusCommentsFather Social History Tobacco UseTypesPacks/DayYears UsedDateSmoking Tobacco: NeverSmokeless Tobacco: Never Tobacco Cessation:Counseling Given: Not Answered Alcohol UseStandard Drinks/WeekCommentsNot Currently0 (1 standard drink = 0.6 oz pure alcohol)[place] Safety & EnvironmentAnswerDate RecordedFear of Current or Ex-PartnerNot on file09/07/2023Emotionally AbusedNot on file09/07/2023hysically AbusedNot on file09/07/2023Sexually AbusedNot on file09/07/2023hysically or Sexually AbusedNot on file09/07/2023Sex and Gender InformationValueDate Recorded Sex Assigned at DcfgeLaer05/03/2025 11:14 AM EDTLegal ExqAqgh9801/12/2022 11:25 PM EDTGender GrprntemEpzm46/03/2025 11:14 AM EDTSexual OrientationHeterosexual or Xefuaaid48/03/2025 11:14 AM EDT Last Filed Vital Signs Vital SignReadingTime TakenCommentsBlood Ypjofoyi075/5809 9:28 AM EDT Yfrld6350 9:28 AM EDTTemperature--Respiratory Rate--Oxygen Ziyyhmhxoj40% 03/20/2025 9:28 AM EDTInhaled Oxygen Concentration--Mnujrs83.2 kg (201 lb) 03/20/2025 9:28 AM EANKsbzjn246.1 cm (5' 5 )03/20/2025 9:28 AM EDTBody Mass Index33.45003/20/2025 9:28 AM EDT Plan of Treatment Health MaintenanceDue DateLast DoneCommentsDiabetes: Hemoglobin A1C1946 Medicare Annual Wellness (AWV)1946Diabetes: Retinopathy Screening 02/14/1956Depression Nmiysuisz24/31/1958Diabetes: Urine Protein Screening 1965Fall Risk Yhrqomloo40/31/2011COVID-19 Vaccine ( season) , 04/21/2022, 01/21/2022, Additional history existsInfluenza Vaccine (#1)509/04/2024, 05/01/2023, 04/28/2022, Additional history existsAdult Zmaqovo41/04/2024, 06/19/2013, 04/24/2013, Additional history existsPneumococcal Vaccine: 50+ GcevgRxvvbwfvr14/27/2017, 06/01/2017, 05/11/2015, Additional history existsZoster KufxbvcjGexubnblv59/04/2019, 06/11/2018, 06/27/2012HIB VaccinesAged OutNo longer eligible based [...] Procedures Procedure NamePriorityDate/TimeAssociated DiagnosisCommentsLEXISCAN STRESS MYOCARDIAL PERFUSION SHJOEMXCuvrokm78/18/2025 4:35 PM EDT from Last 3 Months Results * Lexiscan Stress Myocardial Perfusion Imaging (04/03/2025 4:35 PM EDT) Anatomical RegionLateralityModalityOther Narrative Authorizing ProviderResult TypeResult StatusHistorical Provider MDCV STRESS PROCEDURESFinal Result from Last 3 [place] [address] Care Teams Team MemberRelationshipSpecialtyStart DateEnd Date Jamar Jnoes DO [address] [place] [address] PCP - Kisbcqw81/12/22
--- OUTSIDE RECORDS SUMMARY | 2025-06-18 08:34 | XMS_ITS | Clinical Summary ---
Author Organization [facility] Address [address] [place] [address] Care Team Providers Care Skate Shop Attendant Name Role Phone Jamar Jones DO Primary Care Provider [phone] Allergies Active AllergyReactionsCriticalityNoted DateCommentsPenicillin 06/25/2001 Other Reaction(s): HIVES, Unknown Fnctaxvzfgv63/20/2002 Other Reaction(s): Unknown Medications MedicationSigDispense QuantityRefillsLast FilledStart [...] g 08/28/2023ctive Active Problems ProblemNoted DateDiagnosed DateVasomotor /20/3461Gqxmlqidwo18/16/2023 Coronary cbvsuoyxtuxbhcip34/16/2023 Overview (06/01/2023): Jun 01, 2016 Entered By: HARVINDER TORIBIO Comment: cabg X 3 (07/2014) Diabetes yucttuep89/16/2023Impaired btlvuda8106/01/20236041Dwgbkwl52/16/2023Essential vclnjrmoxhto74/16/2023Sensorineural hearing loss, /16/2023Sleep apnea 06/01/2023Type 2 diabetes mellitus without kbxhccrnhdruh99/16/2023Nonrheumatic aortic (valve) aottaoko82/16/2023Malignant neoplasm of ceilborf86/21/2015 Overview (06/01/2023): Jun 01, 2016 Entered By: HARVINDER TORIBIO Comment: PROSTATECTOMY 10/2014 Resolved Problems ProblemNoted DateDiagnosed DateResolved DatePrimary ljfoczhtcfsv39/16/2023 06/01/2023 Immunizations ImmunizationAdministration DatesNext DuePneumococcal Polysaccharide PPSV23 06/12/2017,06/01/2017,04/29/2015,06/07/2010Zoster, Bvezmdlpxle78/04/2019, 06/11/2018 Family History Medical HistoryRelationNameCommentsHeart failureFatherCancerMotherRelationName StatusCommentsFatherDeceasedMotherDeceased [...] InformationValueDate RecordedSex Assigned at BirthNot on fileLegal ZqsPecu7009/28/2022 8:21 PM EDTGender IdentityNot on file Sexual OrientationNot on file Last Filed Vital Signs Vital SignReadingTime TakenCommentsBlood Trtkkerg389/7803/ 8:23 AM EDT Pulse--Temperature--Respiratory Rate--Oxygen Saturation--Inhaled Oxygen Concentration--Alarjf47.3 kg (208 lb)06/05/2023 11:24 AM TKGVyfoze904.9 cm (5' 6.5 )06/05/2023 11:24 AM ESTBody Mass Index33.0706/05/2023 11:24 AM EST Plan of Treatment DateTypeDepartmentCare Team (Latest Contact Info)Ioktooejlzy30/13/2026 10:30 AM EDTOffice Visit [facility] [address] [place] [address] Deisy Boo APRN-CEMENT STORAGE WORKER [address] [place], [place] [id number] Health MaintenanceDue DateLast DoneCommentsCOVID-19 Vaccine ( season) 510/12/2021, 01/21/2022, 05/17/2021, Additional history existsInfluenza Vaccine (#1)509/04/2024, 05/01/2023, 04/28/2022, Additional history existsPneumococcal Vaccine: 65+ MbxgnVvsydsxzw27/27/2017, 06/01/2017, 05/11/2015, Additional history exists Insurance MemberSubscriberPlan / Payer (Effective 2012-Present)Name:Rajesh Felix Member ID:[id number] Relation to Subscriber:SelfName:Rajesh Felix Subscriber ID:[id number] Payer ID:STATE Group ID:Not on file Type:Medicare Address: [address] [id number] Care Teams Team MemberRelationshipSpecialtyStart DateEnd Date Jamar Jones, [address] [facility] [place] [address] PCP - GeneralInternal Cdarpxcj46/15/23
--- OUTSIDE RECORDS SUMMARY | 2025-06-18 08:34 | XMS_ITS | Encounter Summary ---
Author Organization [facility] Address [address] [place], [place] [address] Care Team Providers Care Accounts Receivable Supervisor Name Role Phone Jamar Jones DO Primary Care Provider [phone] Galina Wall APRN.PENSION ADMINISTRATOR Unavailable [phone] Clementine Aguilar RN Unavailable [phone] Saul Galdamez MD Unavailable [phone] Source Comments In the event this information is protected by the Federal Confidentiality of Alcohol and Drug AbusePatient Records regulations: The Federal rules restrict any use of the information to criminally investigate or prosecute any alcohol or drug abuse patient.[facility] Reason for Visit * ReasonOnset DateCommentsRefill Vursecc3006/09/2025 Encounter Details DateTypeDepartmentCare Team (Latest Contact Info)Fsrqfpjnuxn18/24/2025Refill Hematology/Oncology [address] [place] [address] [place] [address] Saul Galdamez MD [address] [facility] [place] [address] Refill Request Social History Tobacco UseTypesPacks/DayYears UsedDateSmoking Tobacco: NeverPassive Smoke Exposure: NeverSmokeless Tobacco: NeverAlcohol UseStandard Drinks/WeekComments Yes0 (1 standard drink = 0.6 oz pure alcohol)1 day/wkPHQ-2AnswerDate Recorded PHQ-2 gamai234/04/2025Area Deprivation IndexAnswerDate RecordedNational Score (1-100), lower number is lower gqkx5084State Score (1-10), lower number is lower olzq1753Data from: https://www.neighborhoodatlas.[facility].edu/. Last address used for wljfvuhyfrn[address]02/02/2023Sex and Gender InformationValueDate Recorded Sex Assigned at YkbasVuag90/29/2022 11:48 AM EDTLegal EzwKijz0008/04/2014 8:03 AM ESTGender XqjpbaaqRosq79/29/2022 11:48 AM EDTSexual OrientationStraight 02/11/2022 11:48 AM EDTdocumented as of this encounter Functional Status * Are you deaf or do you have serious difficulty hearing?AnswerDate of NdhmxlwrnuTheuxxUu19/03/2015 10:35 AM Santiago Palacios LPN * Are you blind or do you have serious difficulty seeing, even when wearing glasses?AnswerDate of FnknmvzjymGncqjdJwf28/03/2015 10:35 AM Santiago Palacios LPN * Do you have serious difficulty walking or climbing stairs?AnswerDate of QvlkaiwxtoGfzgjeVy17/03/2015 10:35 AM Santiago Palacios LPN * Do you have difficulty dressing or bathing?AnswerDate of AssessmentAuthorNo 08/19/2014 10:35 AM Santiago Palacios LPN * Because of a physical, mental, or emotional condition, do you have difficulty doing errands alone such as visiting a doctor's office or shopping?AnswerDate of AizivsfbrgBcixhnVu45/03/2015 10:35 AM Santiago Palacios LPN documented as of this encounter Mental Status * Because of a physical, mental, or emotional condition, do you have serious difficulty concentrating, remembering, or making decisions?AnswerEntry Date RqpwmlAp05/03/2015 10:35 AM Santiago Palacios LPN documented in this encounter Miscellaneous Notes * Telephone Encounter - Galina Wall APRN.ALEXA - 06/09/2025 4:00 PM EST Just filled 1 week ago. Refused. Galina Wall APRN.PENSION ADMINISTRATOR documented in this encounter Plan of Treatment DateTypeDepartmentCare Team (Latest Contact Info)Fjknllckrse46/22/2026 11:30 AM ESTOffice Visit [facility] [address] [place] [address] [place] [address] 3 month follow up with xgeva inj08/14/2025 11:00 AM ESTVisit (SP) Office Hematology/Oncology [address] [place] [address] [place] [address] Chary Hodge APRN.[address] [address] 3 month follow up with xgeva inj08/14/2025 11:30 [facility] [address] [place] [address] [place] [address] 3 month follow up with xgeva injdocumented as of this encounter Visit Diagnoses Diagnosis Malignant neoplasm of prostate (HCC) Malignant neoplasm of prostate documented in this encounter Care Teams Team MemberRelationshipSpecialtyStart DateEnd Date Jamar Jones DO PCP - GeneralInternal Medicine08/04/14 Galina Wall APRN.CNP [address] [facility] [place] [address] Nurse PractitionerHematology/Oncology11/02/21 Clementine Aguilar, ANITHA [address] [facility] [place] [address] Specialty Care CoordinatorHematology/Oncology11/02/21 Saul Galdamez MD [address] [place] [address] [place] [address] PhysicianHematology/Oncology01/21/25documented as of this encounter
--- OUTSIDE RECORDS SUMMARY | 2025-06-18 08:34 | XMS_ITS | Clinical Summary ---
Author Organization [facility] Address [address] [place], [place] [address] Care Team Providers Care Radiology Nurse Name Role Phone Jamar Jones DO Primary Care Provider [phone] Galina Wall APRN.LABORER HEADING Unavailable [phone] Clementine Aguilar RN Unavailable [phone] Saul Galdamez MD Unavailable [phone] Allergies Active AllergyReactionsCriticalityNoted BzvqAqihqafzUtyyjhzfdgfArpeeme53/21/2015 YfgwqzazhzrUiyamjg97/20/2002 Medications MedicationSigDispense QuantityRefillsLast FilledStart DateEnd DateStatus lisinopril-hydrochlorothiazide [...] 1,000 mg by mouth once daily. 08/17/2021ctive Ozcwnmxmttblo-Kgcuehxe-Panmoo (MULTIVITAMIN 50 PLUS) tab Take 1 tablet [...] Active Problems ProblemNoted DateDiagnosed DateMalignant neoplasm of bissyibn32/21/2015 Encounters DateTypeDepartmentCare JijuVdjbfscimvu36/26/2025Refill Hematology/Oncology [address] [place] [address] [place] [address] [facility] Refill Hkypbvn4306/09/2025Refill Hematology/Oncology [address] [place] [address] [place] [address] Saul Galdamez MD Refill Epiwwpq1106/02/2025Refill [facility] [address] [place] [address] [address] [facility] Refill Rkugjht9905/26/2025Refill [facility] [address] [place] [address] Saul Galdamez MD Refill Request (Xtandi)05/22/2025 11:30 AM ESTInfusion Center Hematology/Oncology [address] [place] [address] [place] [address] Malignant neoplasm of prostate (HCC) (Primary Dx)05/22/2025 11:00 AM ESTVisit (SP) Office Hematology/Oncology [address] [place] [address] [place] [address] Chary Hodge, MANAGER TRANSFER.LABORER HEADING Malignant neoplasm of prostate (HCC) (Primary Dx); Anemia, unspecified type; Other osteoporosis without current pathological fracture; Secondary malignant neoplasm of bone (HCC); Encounter for antineoplastic chemotherapy; Lactose iloreudknyk73/06/3381Jqixpi29/28/2025Travelfrom Last 3 Months Immunizations ImmunizationAdministration DatesNext DueAS03 atpyyvps57/11/2018COVID-19 original vaccine, full dose, monovalent (MODERNA)01/21/2022,05/17/2021,09/22/2020, 08/24/2020OVID- vaccine (BRIANA)08/26/2020OVID- vaccine, age 12+ yr (MODERNA SPIKEVAX)04/26/2024OVID vaccine, age 12+ yr, bivalent (MODERNA) 04/21/2022iphtheria [...] 23 valent (PNEUMOVAX 23)06/12/2017,06/01/2017,04/29/2015,06/23/2010,06/07/2010, 01/14/2010pneumococcal vaccine, unspecified fawwmyywhml02/22/2010respiratory syncytial virus (RSV) vaccine, bivalent (ABRYSVO)04/26/2024tetanus diphtheria (Td) vaccine, adult, non-hzghomaz41/04/2013tetanus diphtheria (Td) vaccine, adult, unspecified upsbuwzzuoq55/27/2003tetanus diphtheria (Td) vaccine, age 7+ yr, 5 Lf tetanus, PF (TENIVAC)04/24/2013tetanus diphtheria pertussis (Tdap) vaccine, age 7+ yr (ADACEL, BOOSTRIX)04/25/2024zoster (RZV) vaccine, recombinant (SHINGRIX)08/20/2018,06/11/2018zoster (ZVL) vaccine, live (ZOSTAVAX)06/27/2012 Family History Medical HistoryRelationCommentsCancerMotherCancerRelationStatusCommentsMother Social History Tobacco UseTypesPacks/DayYears UsedDateSmoking Tobacco: NeverPassive Smoke Exposure: NeverSmokeless Tobacco: Never Tobacco Cessation:Counseling Given: Not Answered Alcohol UseStandard Drinks/WeekCommentsYes0 (1 standard drink = 0.6 oz pure alcohol)1 day/wkPHQ-2AnswerDate RecordedPHQ-2 yolmr100/04/2025Area Deprivation IndexAnswerDate RecordedNational Score (1-100), lower number is lower risk80 02/02/2023State Score (1-10), lower number is lower vbrz0203Data from: https://www.neighborhoodatlas.medicine.[facility].edu/. Last address used for qayxelvsykp[address]02/02/2023Sex and Gender InformationValueDate Recorded Sex Assigned at MtutbOgaq76/29/2022 11:48 AM EDTLegal MuyUiyp5808/04/2014 8:03 AM ESTGender WfkpykppBiqi66/29/2022 11:48 AM EDTSexual OrientationStraight 02/11/2022 11:48 AM EDT Last Filed Vital Signs Vital SignReadingTime TakenCommentsBlood Ombempbl995/56107/22/2024 10:35 AM EST Ykyeu730105/22/2025 10:35 AM DKLIhzayqdkldg23.2 ??C (97.2 ??F)05/22/2025 10:35 AM ESTRespiratory Xmak411807/22/2024 10:35 AM ESTOxygen Dzglyyssrx39%05/22/2025 10:35 AM ESTInhaled Oxygen Concentration--Xzrrwf93.3 kg (203 lb 7.8 oz)05/22/2025 10:35 AM MIMPdrggp161.6 cm (5' 5.98 )05/22/2025 10:35 AM ESTBody Mass Index32.86 05/22/2025 10:35 AM EST Plan of Treatment DateTypeDepartmentCare Team (Latest Contact Info)Amoszluzgfe64/22/2026 11:30 AM ESTOffice [facility] [address] [place] [address] [place] [address] 3 month follow up with indu inj08/14/2025 11:00 AM ESTVisit () Office Hematology/Oncology [address] [address] Chary Hodge APRN.LABORER HEADING [address] [place] [address] 3 month follow up with xgeva inj08/14/2025 11:30 AM [facility]Infatrium [facility]Oncology [address] [place] [address] [place] [address] 3 month follow up with xgeva injHealth MaintenanceDue DateLast DoneComments Anxiety Ddophknmm11/31/1964Depression Fffaspwts53/31/1964Medicare Annual Wellness Visit01/14/2011dvance Directive Qvdoiibqvb22/01/2025Covid-19 Vaccine ( season)51, 04/21/2022, 01/21/2022, Additional history existsDiabetes Sfrbwlrrv24, 2025, 10/31/2024, Additional history existsDTaP,Tdap,Td Vaccine (6 - Td or Tdap)04/25/2034 04/25/2024, 06/19/2013, 06/19/2013, Additional history existsPneumococcal Vaccine: 50+Wejnrxifg55/27/2017, 06/01/2017, 06/01/2017, Additional history existsShingrix IldgmjjIktzcurdy98/04/2019, 06/11/2018, 06/27/2012RSV Vaccine Mwkghlnya08/11/2024Influenza FzupazwKullsfsnz58/16/2025, 03/26/2024, 05/01/2023, Additional history exists Procedures Procedure NamePriorityDate/TimeAssociated DiagnosisCommentsERYTHROPOIETIN/EPO Xqxljsh4105/15/2025 11:10 AM EDT Malignant neoplasm of prostate (HCC) Anemia, unspecified type FOLATE QFDCFMgmiqrr73/30/2025 11:10 AM EDT Malignant neoplasm of prostate (HCC) Anemia, unspecified type VITAMIN B12 QWTBECgzlofb37/30/2025 11:10 AM EDT Malignant neoplasm of prostate (HCC) Anemia, unspecified type FERRITIN YJPMlbaycw88/30/2025 11:10 AM EDT Malignant neoplasm of prostate (HCC) Anemia, unspecified type IRON + HMPKJhcrqlu23/30/2025 11:10 AM EDT Malignant neoplasm of prostate (HCC) Anemia, unspecified type COMPREHENSIVE METABOLIC PARZNDucjdit19/30/2025 11:10 AM EDT Malignant neoplasm of prostate (HCC) Anemia, unspecified type CBC + VRTXAyasmmn71/30/2025 11:10 AM EDT Malignant neoplasm of prostate (HCC) Anemia, unspecified type PSA/PROSTSPECAG ZYNGPuueway67/30/2025 11:10 AM EDT Malignant neoplasm of prostate (HCC) Anemia, unspecified type from Last 3 Months Results * VITAMIN B12 (05/15/2025 11:10 AM EDT)ComponentValueRef RangeTest Method Analysis TimePerformed AtPathologist SignatureVitamin [id number] - 1,245 pg/mL 05/15/2025 7:43 PM [facility] LABSpecimen (Source)Anatomical Location / LateralityCollection Method / VolumeCollection TimeReceived Time BloodBLOOD SPECIMEN / UnknownVenipuncture / Qgxgbbb6305/15/2025 11:10 AM EDT 05/15/2025 11:11 AM EDT Narrative Authorizing ProviderResult TypeResult StatusVivenathan Galdamez MDLABORATORYFinal ResultPerforming OrganizationAddressCity/State/ZIP CodePhone Number [facility] [address] [place] [address] * PROSTATE-SPECIFIC ANTIGEN DIAGNOSTIC (05/15/2025 11:10 AM EDT)ComponentValue Ref RangeTest MethodAnalysis TimePerformed AtPathologist SignaturePSA0.39<2.60 ng/mL05/15/2025 7:29 PM EDTCMIAMI VALLEY HOSPITAL MAIN LABComment:Total PSA test methodology used is the Electrochemiluminescence Immunoassay by [employer]. Total PSA values by differing methodologies cannot be interchanged.Specimen (Source)Anatomical Location / LateralityCollection Method / VolumeCollection TimeReceived TimeBloodBLOOD SPECIMEN / Unknown Venipuncture / Sjmfvjx6205/15/2025 11:10 AM EDT1 11:11 AM EDT Narrative Authorizing ProviderResult TypeResult StatusVivenathan Galdamez MNLABORATORYFinal ResultPerforming OrganizationAddressCity/State/ZIP CodePhone Number [facility] [address] [place] [address], * (ABNORMAL) IRON AND TIBC (05/15/2025 11:10 AM EDT)ComponentValueRef RangeTest MethodAnalysis TimePerformed AtPathologist TekmgyoqoWzgk0660 - 186 ug/dL 05/15/2025 7:26 PM EDTCMIAMI VALLEY H[facility]ITAL MAIN CPHSXVC388(H)232 - 386 ug/dL 05/15/2025 7:26 PM EDTCMIAMI VALLEY HOSPITAL MAIN LABTransferrin Uxsehqahdp96.815.0 - 57.0 %05/15/2025 7:26 PM EDTCMIAMI VALLEY [facility] MAIN LABSpecimen (Source) Anatomical Location / LateralityCollection Method / VolumeCollection Time Received TimeBloodBLOOD SPECIMEN / UnknownVenipuncture / Xbcgrxb0905/15/2025 11:10 AM EDT1 11:11 AM EDT Narrative Authorizing ProviderResult TypeResult StatusVivenathan Sapphiremiguel MNLABORATORYFinal ResultPerforming OrganizationAddressty/State/ZIP CodePhone Number [facility] [address] [place] [address], * FOLATE, SERUM (05/15/2025 11:10 AM EDT)ComponentValueRef RangeTest Method Analysis TimePerformed AtPathologist SignatureFolate>20.0>4.7 ng/mL05/15/2025 7:43 PM EDADENA [facility] MAIN LABComment: A result of > 20 ng/mL is not necessarily indicative of a pathologic or treatable condition: it reflects a limitation of the test methodology. Assay reference range: 4.8 to 24.2 ng/mL. Suitable for detection of folate deficiency. Reference: Folate III (Folate III) [package insert V 1.0 Danish]. [employer], [place], [place]: May 2015. Specimen (Source)Anatomical Location / LateralityCollection Method / Volume Collection TimeReceived TimeBloodBLOOD SPECIMEN / UnknownVenipuncture / Unknown 05/15/2025 11:10 AM EDT1 11:11 AM EDT Narrative Authorizing ProviderResult TypeResult StatusVivenathan Galdamez MDLABORATORYFinal ResultPerforming OrganizationAddressCity/State/ZIP CodePhone Number [facility] [address] [place] [address], * FERRITIN (05/15/2025 11:10 AM EDT)ComponentValueRef RangeTest MethodAnalysis TimePerformed AtPathologist EzblftidsDecwqxmb33.930.3 - 565.7 ng/mL05/15/2025 7:[address] [facility] LABSpecimen (Source)Anatomical Location / LateralityCollection Method / VolumeCollection TimeReceived TimeBloodBLOOD SPECIMEN / UnknownVenipuncture / Uvdbezu7505/15/2025 11:10 AM EDT1 11:11 AM EDT Narrative Authorizing ProviderResult TypeResult StatusVivenathan Galdamez MDLABORATORYFinal ResultPerforming OrganizationAddressty/State/ZIP CodePhone Number [facility] [address] [place] [address], * ERYTHROPOIETIN/EPO (05/15/2025 11:10 AM EDT)ComponentValueRef RangeTest Method Analysis TimePerformed AtPathologist MfjradppgUnvriwgfxvwjdy75.52.6 - 18.5 mIU/mL05/16/2025 9:[address] [facility] LABSpecimen (Source) Anatomical Location / LateralityCollection Method / VolumeCollection Time Received TimeBloodBLOOD SPECIMEN / UnknownVenipuncture / Sbrogml6605/15/2025 11:10 AM EDT1 11:11 AM EDT Narrative [facility] - 05/16/2025 9:41 AM EDT Test analyzed by the Esperanza DxI method. Authorizing ProviderResult TypeResult StatusVivenathan Galdamez MDLABORATORYFinal ResultPerforming OrganizationAddVeterans Affairs Pittsburgh Healthcare Systemty/State/ZIP CodePhone Number [facility] [address] [place] [address], * (ABNORMAL) COMPREHENSIVE METABOLIC PANEL (05/15/2025 11:10 AM EDT)Component ValueRef RangeTest MethodAnalysis TimePerformed AtPathologist Signature Protein, Total6.56.3 - 8.0 g/dL05/15/2025 11:49 AM EDTNORTMYMICHIGAN [facility] LABAlbumin4.23.9 - 4.9 g/dL05/15/2025 11:49 AM EDTNORTMYMICHIGAN [facility] LABCalcium, Total10.08.5 - 10.2 mg/dL05/15/2025 11:49 AM EDTNORTMYMICHIGAN MED[facility] LABBilirubin, Total0.80.2 - 1.3 mg/dL 05/15/2025 11:49 AM EDTMAN [facility] LABAlkaline Zegpsjngtpj2963 - 113 U/L1 11:49 AM EDTMAN [facility] VADZMI0390 - 40 U/L1 11:49 AM EDTNORTMYMICHIGAN [facility] EAVDQX9189 - 54 U/L1 11:49 AM [facility] OCVEnzpeiy107(H)74 - 99 mg/dL05/15/2025 11:49 AM [facility] LABComment: The [place] Diabetes Association (ADA) provides guidance for cutoff [...] Standards of Medical Care in Diabetes 2016, [place] Diabetes Association. Diabetes Care. 2016.39(Suppl 1). HMM828 - 24 mg/dL05/15/2025 11:49 AM EDBECKLEY [facility] LAB Creatinine0.730.73 - 1.22 mg/dL05/15/2025 11:49 AM EDBECKLEY [facility] KGODumumz795056 - 144 mmol/L1 11:49 AM EDBECKLEY [facility] LABPotassium4.73.7 - 5.1 mmol/L1 11:49 AM EDTMAN [facility] HMNQbdebnoe34192 - 107 mmol/L1 11:49 AM EDT [facility] IQJJH12068 - 30 mmol/L1 11:49 AM EDT [facility] LABAnion Euu205 - 15 mmol/L1 11:49 AM [facility] LABEstimated Glomerular Filtration Rate93 >=60 [...] VolumeCollection TimeReceived TimeBloodBLOOD SPECIMEN / UnknownVenipuncture / Ntkmdka6305/15/2025 11:10 AM EDT1 11:11 AM EDT Narrative Authorizing ProviderResult TypeResult StatusSaul Galdamez MDLABORATORYFinal ResultPerforming OrganizationAddressCity/State/ZIP CodePhone Number [facility] [address] [place] [address] * (ABNORMAL) COMPLETE BLOOD COUNT AND DIFFERENTIAL (05/15/2025 11:10 AM EDT) ComponentValueRef RangeTest MethodAnalysis TimePerformed AtPathologist SignatureWBC6.943.70 - 11.00 k/uL05/15/2025 11:27 AM EDTNORTHCSELECT [facility] LABRBC3.64(L)4.20 - 6.00 m/uL05/15/2025 11:27 AM EDTNORTMYMICHIGAN [facility] DQVGbjddjibls06.7(L)13.0 - 17.0 g/dL05/15/2025 11:27 AM EDTNORTMYMICHIGAN [facility] WSDIpdljpmgov51.8(L)39.0 - 51.0 % 05/15/2025 11:27 AM EDTNORTMYMICHIGAN [facility] IJYXIA11.680.0 - 100.0 fL05/15/2025 11:27 AM EDTNORTMYMICHIG[facility] UNFBPZ84.1 26.0 - 34.0 pg05/15/2025 11:27 AM EDBECKLEY [facility] LABMCHC 33.630.5 - 36.0 g/dL05/15/2025 11:27 AM EDTNOSTEV[facility] LABRDW-CV12.611.5 - 15.0 %05/15/2025 11:27 AM EDBECKLEY [facility] LABPlatelet Ugebs647468 - 400 k/uL05/15/2025 11:27 AM EDTNOSTEVENS [facility] ZISWJE53.49.0 - 12.7 fL05/15/2025 11:27 AM EDT [facility] LABNeutrophils %55.9%05/15/2025 11:27 AM EDT [facility] LABAbs Neut3.881.45 - 7.50 k/uL05/15/2025 11:27 AM EDTNOSTEV[facility] LABLymphocytes %29.0%05/15/2025 11:27 AM EDBECKLEY [facility] LABAbs Lymph2.011.00 - 4.00 k/uL 05/15/2025 11:27 AM EDBECKLEY [facility] LABMonocytes %8.6% 05/15/2025 11:27 AM EDBECKLEY [facility] LABAbs Mono0.60<0.87 k/uL05/15/2025 11:27 AM EDBECKLEY [facility] LABEosinophils % 5.2%05/15/2025 11:27 AM EDBECKLEY [facility] LABAbs Eosin0.36 <0.46 k/uL05/15/2025 11:27 AM EDTMAN [facility] LAB Basophils %0.4%05/15/2025 11:27 AM EDBECKLEY [facility] LABAbs Baso0.03<0.11 k/uL05/15/2025 11:27 AM [facility] LAB Immature Granulocytes %0.9%05/15/2025 11:27 AM EDBECKLEY [facility] LABAbs Immature Gran0.06<0.10 k/uL05/15/2025 11:27 AM EDBECKLEY [facility] LABNRBC0.0/100 WBC05/15/2025 11:27 AM [facility] LABAbsolute nRBC<0.01<0.01 k/uL05/15/2025 11:27 AM EDT [facility] LABDiff HjbpMfii95/30/2025 11:27 AM EDT [facility] LABSpecimen (Source)Anatomical Location / LateralityCollection Method / VolumeCollection TimeReceived TimeBloodBLOOD SPECIMEN / UnknownVenipuncture / Rshpsia9705/15/2025 11:10 AM EDT1 11:11 AM EDT Narrative Authorizing ProviderResult TypeResult StatusSaul Galdamez MDLABORATORYFinal ResultPerforming OrganizationAddressCity/State/ZIP CodePhone Number [facility] [address] [place] [address] from Last 3 Months Insurance Care Teams Team MemberRelationshipSpecialtyStart DateEnd Jamar Jones DO PCP - GeneralInternal Medicine08/04/14 Galina Wall APRN.LABORER HEADING [address] [place] [address] [place] [address] Nurse PractitionerHematology/Oncology11/02/21 Clementine Aguilar, ANITHA [address] [facility] [place] [address] Specialty Care CoordinatorHematology/Oncology11/02/21 Saul Galdamez MD [address] [place] [address] PhysicianHematology/Oncology01/21/25
--- OUTSIDE RECORDS SUMMARY | 2025-06-18 08:34 | XMS_ITS | Encounter Summary ---
Author Organization [facility] Address [address] [place], [place] [address] Care Team Providers Care Banquet Coordinator Name Role Phone Jamar Jones DO Primary Care Provider [phone] Galina Wall APRN.SAMPLE FINISHER Unavailable [phone] Clementine Aguilar RN Unavailable [phone] Saul Galdamez MD Unavailable [phone] Source Comments In the event this information is protected by the Federal Confidentiality of Alcohol and Drug AbusePatient Records regulations: The Federal rules restrict any use of the information to criminally investigate or prosecute any alcohol or drug abuse patient.[facility] Reason for Visit * ReasonCommentsRefill Request Encounter Details DateTypeDepartmentCare Team (Latest Contact Info)Nziygdtpixf19/26/2025Refill Hematology/Oncology [address] [place] [address] Aida Luo, [facility] [address] [place] [address] Refill Request Social History Tobacco UseTypesPacks/DayYears UsedDateSmoking Tobacco: NeverPassive Smoke Exposure: NeverSmokeless Tobacco: NeverAlcohol UseStandard Drinks/WeekComments Yes0 (1 standard drink = 0.6 oz pure alcohol)1 day/wkPHQ-2AnswerDate Recorded PHQ-2 ztakg981/04/2025Area Deprivation IndexAnswerDate RecordedNational Score (1-100), lower number is lower wqto433602/02/2023State Score (1-10), lower number is lower fvpb8493Data from: https://www.neighborhoodatlas.[facility]/. Last address used for [address]02/02/2023Sex and Gender InformationValueDate Recorded Sex Assigned at TjennWeho04/29/2022 11:48 AM EDTLegal JvzPmkn1308/04/2014 8:03 AM ESTGender TjgkfaemEjzb47/29/2022 11:48 AM EDTSexual OrientationStraight 02/11/2022 11:48 AM EDTdocumented as of this encounter Functional Status * Are you deaf or do you have serious difficulty hearing?AnswerDate of AtxdtjprzhSkdetmWy44/03/2015 10:35 AM Santiago Palacios LPN * Are you blind or do you have serious difficulty seeing, even when wearing glasses?AnswerDate of DfvtovoqanVxptokFqv98/03/2015 10:35 AM Santiago Palacios LPN * Do you have serious difficulty walking or climbing stairs?AnswerDate of EsimcrjhnhWrtdpkMd81/03/2015 10:35 AM Santiago Palacios LPN * Do you have difficulty dressing or bathing?AnswerDate of AssessmentAuthorNo 08/19/2014 10:35 AM Santiago Palacios LPN * Because of a physical, mental, or emotional condition, do you have difficulty doing errands alone such as visiting a doctor's office or shopping?AnswerDate of McubuxflgkAbdptbAb60/03/2015 10:35 AM Santiago Palacios LPN documented as of this encounter Mental Status * Because of a physical, mental, or emotional condition, do you have serious difficulty concentrating, remembering, or making decisions?AnswerEntry Date NiouakIv61/03/2015 10:35 AM Santiago Palacios LPN documented in this encounter Miscellaneous Notes * Telephone Encounter - Aida Luo RPh - 06/11/2025 4:07 PM EST I am very confused because he has never filled this script at [facility] because he gets free drug through the electronic security specialist. Josh Luo, PharmD, BCOP * Telephone Encounter - Sheela Toney MA - 06/11/2025 3:17 PM EST Zenon joshua. [facility] called left message on the refill line wanting a new script to be sent to them. Her name is Mari who called and left the message stating she's needing a new script for Xtandi. She was saying some of the directions were missing on the other script that was sent over. Please call at [phone] or fax [phone]. Sheela Toney MA documented in this encounter Plan of Treatment DateTypeDepartmentCare Team (Latest Contact Info)Vhztbxnmcei32/22/2026 11:30 AM ESTOffice Visit [facility] [address] [place] [address] 3 month follow up with xgeva inj08/14/2025 11:00 AM ESTVisit (SP) Office Hematology/Oncology [address] [place] [address] Chary Hodge APRN.SAMPLE FINISHER [address] [place] [address] 3 month follow up with xgeva inj08/14/2025 11:30 AM ESTInfnovant [facility] Hematology/Oncology [address] [place] [address] [place] [address] 3 month follow up with xgeva injdocumented as of this encounter Visit Diagnoses Diagnosis Malignant neoplasm of prostate (HCC) Malignant neoplasm of prostate documented in this encounter Care Teams Team MemberRelationsPorterville Developmental CenterpecialtyStart DateEnd Date Jamar Jones DO PCP - GeneralInternal Medicine08/04/14 Galina Wall APRN.SAMPLE FINISHER [address] [place] [address] [place] [address] Nurse PractitionerHematology/Oncology11/02/21 Clementine Aguilar, ANITHA [address] [place] [address] [place] [address] Specialty Care CoordinatorHematology/Oncology11/02/21 Saul Galdamez MD [address] [place] [address] [place] [address] PhysicianHematology/Oncology01/21/25documented as of this encounter
--- OUTSIDE RECORDS SUMMARY | 2025-06-18 08:37 | XMS_ITS | CCD ---
Author Organization [facility] Care Team Providers Care Rosin Barrel Filler Name Role Phone Jamar Fall DO Primary Care Provider Dheeraj JAMES, Marco A R Unavailable [facility] ARCHITECTURAL ASSOCIATE.ALEXA, Christo Unavailable Lauren RN, Clementine Unavailable JAMAR FALL Primary Care Physician Jamar Fall DO Primary Care Provider Marco A Esqueda MD R Unavailable [facility] ARCHITECTURAL ASSOCIATE.ALEXA, Christo Unavailable Lauren WELSH, Clementine Unavailable [phone] Jamar Fall DO Primary Care Provider Dheeraj JAMES, Marco A R Unavailable [facility] ARCHITECTURAL ASSOCIATE.DEVULCANIZER CHARGER, Christo Unavailable Lauren RN, Clementine Unavailable Jamar [...] Consulting Unavaila ble Lauren RN, Clementine Unavailable Jamar Fall MD Primary Care [...] A Esqueda MD Attending Provider Unavailable Richie PULL OVER MACHINE OPERATOR-CAnirudh Attending Provider [phone] Provider, Outside Attending Provider Unavailable Jamar Fall [...] of OnsetReaction(s) Facility (18 sources)Penicillins; Translations: [PENICILLINS]Drug Cqokhvv17-14-5483 [facility] (20 sources)Penicillin G; Translations: [penicillin G benzathine]Drug Allergy 43-25-2049Zcjmnhr (qualifier value)[facility] (20 sources)PenicillinsDrug Sgfbmue72-47-8028[facility] (20 sources)Simvastatin; Translations: [SIMVASTATIN]Drug Adyinoa29-12-2719 [facility] (1 source)PenicillinsDrug allergy (disorder)43-80-0289[facility] (1 source)PenicillinDrug AllergyUnkprime healthcare services – saint [facility] medical centerFAZUA Other (1 source)Allergies ReconciledPropensity to adverse reactionsSt. Vincent Pediatric Rehabilitation CenterFAZUA Other (1 source)patient allergy list reviewed by nurse or physiciaPropensity to adverse lvilkjagl52-17-7907Qdadxhs:LikeastoreStyleCaster Other (6 sources)SimvastatinPropensity to adverse htmtforjg75-76-8738[facility] (1 source)PenicillinsDrug Vqdchgr90-29-3014UjvcfbwAmivewanm Clinic Medications Current Medications MedicationDrug Class(es)DatesSig (Normalized)Sig (Original)Aspir-81 81 MG (20 sources)take 1 tablet by mouth once dailyAspir-81 81 MG 1 tablet Orally Once a day Activeaspirin 81 mg delayed release oral tablet (20 sources)Platelet Aggregation Inhibitor, Nonsteroidal Anti-inflammatory Drug Start: 20-48-0782cklf 1 tablet by mouth once dailyAspirin 81 mg tablet,delayed release (DR/EC) Active 81 MG PO Daily September 08, 2023 1:00am Complies with drug therapyStart: 79-15-0029hizg 1 mg by mouth once dailyaspirin 81 mg oral tablet mg tab(s), Oral, Daily, Refills(s) 0 Start Date: 02/04/19 Status: Ordered Repeat number: 1Comment on above:Take 81 mg by mouth once daily.atorvastatin 40 mg oral tablet (20 sources)HMG-CoA Reductase InhibitorStart: 41-69-0029gdea 1 tablet by mouth once daily in the eveningAtorvastatin 40 mg tablet Active 0 .ROUTE .COMPLEX 90 September 01, 2024 9:43am TAKE 1 TABLET BY MOUTH ONCE EVERY EVENING Complies with drug therapyStart: 09-06-2023 End: 92-35-3095xvzm 1 tablet by mouth once daily in the eveningAtorvastatin 40 mg tablet Discontinued 0 .ROUTE .COMPLEX 90 September 06, 2023 9:32am September 08, 2023 3:51pm TAKE 1 TABLET BY MOUTH ONCE EVERY EVENINGStart: 04-17-2023 End: 38-81-1962hmzp 1 tablet by mouth once dailyAtorvastatin 40 mg tablet Discontinued 40 MG PO Daily September 08, 2023 3:49pm September 01, 2024 9:43amStart: 95-19-4675hekf 1 tablet by mouth once dailyatorvastatin 20 mg Tab 20 mg = 1 tab(s), Oral, Daily, Refills(s) 0 Start Date: 02/04/19 Status: Ordered Comment on above:Take 20 mg by mouth once daily.Take 40 mg by mouth once daily. calcium citrate 950 mg / cholecalciferol 250 unt oral tablet (20 sources)Vitamin DStart: 03-84-5393yyww 2 tablets by mouth once dailyCalcium Citrate-Vitamin [...] tablet (20 sources)Androgen Receptor InhibitorStart: 04-01-2024 End: 12-14-5807qbss 4 tablets by mouth once dailyenzalutamide (XTANDI) 40 mg tablet Take 4 tablets (160 mg) by mouth once daily. 120 tablet 11 05/08/2024 ActiveStart: 05-08-2023 End: 38-42-9673quub 2 tablets by mouth once dailyenzalutamide (XTANDI) 80 mg tablet TAKE 2 TABLETS (160 MG) BY MOUTH ONCE DAILY. 60 tablet 11 04/01/2024 08/08/2024 Discontinued (Discontinued by Patient)Start: 51-04-8085okpa 1 mg by mouth once dailyXtandi 80 mg oral tablet mg tab(s), Oral, Daily, Refills(s) 0 Start Date: 05/13/22 Status: Ordered Repeat number: 1Start: 10-28-2021 End: 44-21-6479qbma 2 tablets by mouth once dailyenzalutamide (XTANDI) 80 mg tablet Take 2 tablets (160 mg) by mouth once daily. 60 tablet 3 10/28/2021 04/27/2023 DiscontinuedComment on above:Take 2 tablets (160 mg) by mouth once daily.fluocinonide 0.5 mg/ml topical cream (3 sources)CorticosteroidStart: 02-26-2024 End: 28-61-1850qclpkfgesazr (Lidex) 0.05 % cream Indications: Psoriasis vulgaris Apply topically 2 (two) times a day 60 g 11 02/26/2024 02/25/2025 Active fluorouracil 50 mg/ml topical cream (5 sources)Nucleoside Metabolic InhibitorStart: 46-90-6291cdqmxzwoxwgh (Efudex) 5 % cream Indications: Actinic keratosis Apply to directed areas on the face, ears and back of hands twice a day x 14 days. Dispense 30 day supply but only use for 14 days. 40 08/28/2023 Activeglimepiride 1 mg oral tablet (20 sources)SulfonylureaStart: 32-96-5141htum 0.5 tablet by mouth once daily at breakfastGlimepiride 1 mg tablet Active 0 .ROUTE .COMPLEX August 02, 2024 3:03pm TAKE 1/2 TABLET BY MOUTH DAILY 30 MINUTES PRIOR TO BREAKFAST Complies with drug therapyStart: 88-86-0969grlx 0.5 mg by mouth once dailyGlimepiride Active 0.5 MG PO Daily September 08, 2023 1:00amStart: 10-15-2021 End: 23-84-9521hdxv 0.5 mg by mouth once dailyGlimepiride 1 mg tablet Discontinued 0.5 MG PO Daily September 08, 2023 1:00am August 02, 2024 3 :03pmStart: 44-08-1569dfsq 0.5 mg by mouth once dailyGLIMEPIRIDE ORAL Take 0.5 mg by mouth once daily. 10/15/2021 ActiveStart: 36-28-3986khxq 0.5 mg by mouth once dailyGLIMEPIRIDE ORAL Take 0.5 mg by mouth once daily. 0 10/15/2021 Active Start: 27-50-3858dqgnpngdbjx Oral, Daily, Refills(s) 0 Start Date: 05/14/21 Status: Ordered Repeat number: 1Start: 45-39-3782ybvddusjagj Oral, Daily, Refills(s) 0 Start Date: 05/14/21 Status: OrderedComment on above:TAKE 1/2 TABLET BY MOUTH DAILY 30 MINUTES PRIOR TO BREAKFASTTake 0.5 mg by mouth once daily. hydroCHLOROthiazide 12.5 mg / lisinopril 20 mg oral tablet (20 sources)Thiazide Diuretic, Angiotensin Converting Enzyme InhibitorStart: 10-12-2023 End: 87-52-9504eefj 1 tablet by mouth once dailyLisinopril-Hydrochlorothiazide 20-12.5 mg tablet Active 0 .ROUTE .COMPLEX 90 October 07, 2024 6:50am TAKE 1 TABLET BY MOUTH EVERY DAY Complies with drug therapyStart: 02-04-2019 End: 03-27-9730mzov 1 tablet by mouth once dailyLisinopril-Hydrochlorothiazide 20-12.5 [...] mg/actuat metered dose nasal spray (19 sources)AnticholinergicStart: 82-02-6790mxyp 1 spray(s) nasal route three times dailyIpratropium [place] 42 mcg (0.06 %) spray,non-aerosol Active 2 SPRAY INTRANASAL Three times daily December 27, 2024 12:00am administer into each nostril Complies with drug therapyStart: 76-94-8401ebvdyqhashf Nasal 0.06% [place] Refill(s) 0 Start Date: 10/20/23 Status: Ordered Repeat number: 1Start: 06-05-2023 End: 91-10-8789gaei 2 spray(s) nasal route in the morning, then take 2 spray(s) nasal route in the evening, then take 2 spray(s) nasal route at bedtime ipratropium (Atrovent) 0.06 % nasal spray Indications: Vasomotor rhinitis Administer 2 sprays into each nostril in the morning and 2 sprays in the evening and 2 sprays before bedtime. 45 mL 3 06/05/2023 ActiveStart: 06-05-2023 End: 13-58-8678bztfqixqkxt bromide (ATROVENT) 42 mcg (0.06 %) nasal spray 2 Sprays. 06/05/2023 06/04/2024 ActiveComment on above:2 Sprays.metFORMIN hydrochloride 500 mg oral tablet (20 sources)BiguanideStart: 46-90-3490play 2 tablets by mouth once daily at mealtimeMetformin 500 mg tablet Active 0 .ROUTE .COMPLEX 180 July 31, 2024 8:39am TAKE 2 TABLETS BY MOUTH DAILY WITH FOOD 90 Complies with drug therapy Start: 09-08-2023 End: 83-68-0690buyv 2 tablets by mouth once dailyMetformin 500 mg tablet Discontinued 1000 MG PO Daily September 08, 2023 1:00am July 31, 2024 8:39amStart: 10-95-9968xinx 1000 mg by mouth once dailyMetformin Active 1000 MG PO Daily September 08, 2023 1:00amStart: 90-12-1440koyy 1 tablet by mouth once dailymetFORMIN (GLUCOPHAGE) 1,000 mg tablet Take 1,000 mg by mouth once daily. 08/17/2021 ActiveStart: 23-47-5571ebtr 2 tablets by mouth once daily at mealtime metFORMIN (GLUCOPHAGE) 500 mg tablet TAKE 2 TABLETS BY MOUTH ONCE A DAY WITH FOOD 0 08/17/2021 ActiveStart: 16-80-9271mnin 1 mg by mouth twice dailymetformin 1000 [...] oral tablet (20 sources)beta-Adrenergic BlockerStart: 12-04-2023 End: 46-63-5529gwwq 1 tablet by mouth twice dailyMetoprolol Tartrate 25 mg tablet Active 0 .ROUTE .COMPLEX 180 October 08, 2024 12:01pm TAKE 1 TABLET BY MOUTH TWICE A DAY Complies with drug therapyStart: 24-24-7016pjvy 1 tablet by mouth twice dailyMetoprolol Tartrate Active 0 .ROUTE .COMPLEX 180 December 04, 2023 1:04pm TAKE 1 TABLET BY MOUTH TWICEA DAYStart: 09-08-2023 End: 02-98-7404voku 1 tablet by mouth twice dailyMetoprolol Tartrate 25 mg tablet Discontinued 25 MG PO Twice daily September 08, 2023 1:00am December 04, 2023 1:04pmStart: 37-21-9031mbgi 1 tablet by mouth every twenty-four hours metoprolol succinate ER (TOPROL XL) 25 mg 24 hr tablet Take by mouth. 02/04/2019 ActiveStart: 02-99-8535vtuf 1 tablet by mouth twice dailymetoprolol 25 mg ER Tab 25 mg = 1 tab(s), Oral, BID, Refills(s) 0 Start Date: 02/04/19 Status: Sherriee d Repeat number: 1take 1 tablet by mouth every twelve hoursmetoprolol tartrate (Lopressor) 25 MG tablet Take 25 mg by mouth every 12 (twelve) hours Active End: 47-44-8874nahk 1 tablet by mouth twice dailyMetoprolol Tartrate 25 MG TAKE 1 TABLET BY MOUTH TWICE A DAY ActiveComment on above:Take 25 mg by mouth.Take 25 mg by mouth twice daily. Take by mouth.Qmbveofvhnslw-Sfbvubbs-Lkulal (MULTIVITAMIN 50 PLUS) tab (20 sources)Lszysxaibsyhv-Aqufomiw-Hoapod (MULTIVITAMIN 50 PLUS) tab Take 1 tablet by mouth once daily. UjpvbvIiudugfwoouol-Umkpzuha-Slgciz (MULTIVITAMIN 50 PLUS) tab Take 1 tablet by mouth once daily. 0 ActiveComment on above:Take 1 tablet by mouth once daily.traMADol hydrochloride 50 mg oral tablet (2 sources)Opioid AgonistStart: 58-72-4554aoeWYSuw HCl 50 MG 1 Orally every 8 hours as needed for 7 days Jul, ActiveVitamin D3 (6 sources)Start: 74-87-6546Cwjkatw D3 Start Date: 06/22/20 Status: Ordered Repeat number: 1Start: 52-49-4533Qqzhnag D3 Start Date: 06/22/20 Status: Ordered Completed/Discontinued [...] + VITAMIN D ORAL) (12 sources) End: 44-31-6697ftlp 1 tablet by mouth twice dailycalcium carbonate/vitamin [...] injection (3 sources)RANK Ligand InhibitorStart: 08-08-2024 End: 00-40-9529zujnnj 1 dose by subcutaneous injection gyxq514 mg, SUBCUTANEOUS, ONCE, 1 dose, On [place] 08/08/24 at 1000, REFRIGERATEStart: 05-09-2024 End: 86-36-9617nnduap 1 dose by subcutaneous injection rkeb066 mg, SUBCUTANEOUS, ONCE, 1 dose, On [facility] 05/09/24 at 1000, REFRIGERATEStart: 02-02-2024 End: 45-03-1373guphfodmd 120 mg injection (XGEVA)docusate sodium 100 mg oral capsule (2 sources)docusate sodium (COLACE) 100 mg capsule q 24 HR. 0 ActiveComment on above:q 24 HR.enteric contrast (will be provided with radiology test) (3 sources)Start: 10-28-2021 End: 17-24-0978hzryhlz contrast (will be provided with radiology test) For CT CHESTABD/PEL W IVCON Routine order Administer, As Directed One Time Only, via Oral, Rectal, both Oral and Rectal, Enteric Tube, Stoma orIndwelling Catheter, Enteric Contrast as designated per enteric contrast guidelines 1 Each 0 022 10/29/2021 ExpiredStart: 10-28-2021 End: 42-00-1855mmuvifj contrast (will be provided with radiology test) [...] with radiology test) (3 sources)Start: 10-28-2021 End: 04-41-3995kr contrast (will be provided with radiology test) [...] Each 0 10/28/2021 10/29/2021 ExpiredStart: 10-28-2021 End: 33-48-5114hi contrast (will be provided with radiology test) [...] guidelines link.Lidocaine (14 sources)Antiarrhythmic, Amide Local AnestheticStart: 79-51-5743Rrszreqit Feb, 20 mgoxyCODONE hydrochloride 5 mg oral tablet (2 sources)Opioid AgonistoxyCODONE IR (ROXICODONE) 5 mg immediate release tablet q 4 HR. 0 ActiveComment on above:q 4 HR.predniSONE 5 mg oral tablet (2 sources)Start: 41-11-0896bdhe 1 tablet by mouth once dailypredniSONE (DELTASONE) 5 mg tablet Take 5 mg by mouth once daily. 0 08/23/2021 Active Comment on above:Take 5 mg by mouth once daily.tamsulosin hydrochloride 0.4 mg oral capsule (2 sources)alpha-Adrenergic Blockertamsulosin (FLOMAX) 0.4 mg q 24 HR. 0 Active Comment on above:q 24 HR.triamcinolone acetonide 40 mg/ml injectable suspension (20 sources)CorticosteroidStart: 35-73-1341Nedlkxx-40 Feb, 40 mg Problems Active Problems Problem ClassificationProblemDateDocumented DateEpisodic/ChronicAbdominal pain (3 sources)Right upper quadrant pain; Translations: [Lower abdominal pain, unspecified]EpisodicCalculus of urinary tract (11 sources)History of calculus of kidney; Translations: [Personal history of urinary calculi]Onset: 34-04-4513NdflfqvjLlqfbq of prostate (20 sources)Malignant tumor of prostate; Translations: [Malignant neoplasm of prostate]Onset: 155260-81-3646BitmdmdGexxabg on above:S/p Radical 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 2017Dx: 2014, s/p radical prostatectomy, ADT, EBRT, chemotherapyDx: 2014, s/p radical prostatectomy,Recurrence 2017 ADT, EBRT, chemotherapy,Increasing PSA 2019 ADT,Bone mets ADT, Xtandi ancer of prostate (8 sources)History of malignant neoplasm of prostate; Translations: [Personal history of malignant neoplasm ofprostate]Onset: 773486-97-3035Eyokimlh Complication of device; implant or graft (2 sources)Atherosclerosis of coronary artery bypass graft(s) without angina pectoris; Translations: [Atherosclerosis of coronary artery bypass graft(s) without angina pectoris]Onset: 01-61-0602KikveefLavsltmdud disorders (18 sources)Left bundle branch block; Translations: [Other left bundle branch block]Onset: 47-15-0154VdqtnyjJpdagqaz atherosclerosis and other heart disease (20 sources)Coronary arteriosclerosis; Translations: [Atherosclerotic heart disease of [place] coronary artery without angina pectoris]Onset: 10-10-2014 76-62-4556YpucgxfAkdyncc on above:CABG 2014,Stress lexiscan: nondiagnostic - 03/2025Stress NM: no reversible defect, LVEF 55%, no TID - 03/2025Deficiency and other anemia (1 source)Anemia, unspecified; Translations: [Anemia, unspecified type]Onset: 51-11-0168RijosxvxKznrbpcm mellitus with complications (20 sources)Type 2 diabetes mellitus; Translations: [Type 2 diabetes mellitus with hyperglycemia]Onset: 63-82-1749WqypefgKayqrqya mellitus without complication (19 sources)Type 2 diabetes mellitus without complication; Translations: [Type 2 diabetes mellitus without complications]Onset: 82-85-5787JaswbejJoxsxddjd of lipid metabolism (20 sources)Hyperlipidemia; Translations: [Hypercholesterolemia]Onset: 790843-73-7086WwjrzfjVmfrcqomq hypertension (20 sources)Hypertensive disorder; Translations: [Essential hypertension]Onset: 06-01-2023 Resolved: 795716-28-8860TwgactdMaajedaphdmie symptoms and ill-defined conditions (17 sources)Microscopic hematuria; Translations: [Nocturia]Onset: 04-14-2023 37-23-3781XnurjcaiXnyjq valve disorders (20 sources)Aortic stenosis, non-rheumatic ; Translations: [Nonrheumatic aortic (valve) stenosis]Onset: 29-44-4978OlkrubgFrhizcl on above:Echo: ROGER 1.13, Velocity 324, 04/2022Echo: [...] and other lower urinary tract symptoms [LUTS]]Onset: 29-33-9737Qnjrcyh Immunizations and screening for infectious disease (1 source)Vaccination given; Translations: [Encounter for immunization]Episodic Nausea and vomiting (2 sources)NauseaEpisodicNeoplasms of unspecified nature or uncertain behavior (2 sources)Neoplastic disease; Translations: [Neoplasm of unspecified behavior of bone, soft tissue, and skin]76-90-2961VazwhphuZztdmazcj or stenosis of precerebral arteries (1 source)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; Translations: [Occlusion and stenosis of carotid artery without mention of cerebral infarction]Onset: 70-08-4334DlhzhtuMmettwvrptyuhu (20 sources)Osteoarthritis of joint of right shoulder region; Translations: [Primary osteoarthritis, right shoulder]ChronicOther and unspecified benign neoplasm (2 sources)Melanocytic nevus of trunk; Translations: [Melanocytic nevi of trunk] 18-64-6026ZjdgcxvtFmwqc circulatory disease (2 sources)Cardiovascular symptoms; Translations: [Other specified symptoms and signs involving the circulatory and respiratory systems]Onset: 07-25-2018 EpisodicOther congenital anomalies (1 source)Other congenital malformations of iris; 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]ChronicOther ear and sense organ disorders (3 sources)Hearing loss; Translations: [Unspecified hearing loss, unspecified ear]Onset: 170458-18-6181KvvmznqVwszf ear and sense organ disorders (6 sources)Sensorineural hearing loss, bilateral; Translations: [Sensorineural hearing loss, bilateral]Onset: 661741-13-2249PwcifkbJqhqm ear and sense organ disorders (1 source)Impacted cerumen, right earEpisodicOther ear and sense organ disorders (1 source)Lesion of skin of right ear; Translations: [Disorder of right external ear, unspecified]46-54-1277ImlzyvbdIpfrb eye disorders (7 sources)Anisocoria; 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]Onset: ChronicOther gastrointestinal disorders (2 sources)Diarrhea; Translations: [Diarrhea, unspecified]84-07-7372Clabhfti Other gastrointestinal disorders (1 source)Diarrhea, unspecified; Translations: [Diarrhea]49-62-1443VmxcuqpnNlsqg inflammatory condition of skin (2 sources)Psoriasis vulgaris; [...] [Personal history of other malignant neoplasm of skin]36-40-2656CosjenksKraev non- traumatic joint disorders (7 sources)Pain in right shoulder; Translations: [Right shoulder pain]Episodic Other nutritional; endocrine; and metabolic disorders (20 sources)Body mass index 30+ - obesity; Translations: [Obesity, unspecified] Onset: 37-74-2862GfawdyxStegh nutritional; endocrine; and metabolic disorders (2 sources)Obesity, unspecifiedChronicOther nutritional; endocrine; and metabolic disorders (1 source)Simple obesity ; Translations: [Other obesity due to excess calories] Onset: 97-49-3561FazriniKdrzv nutritional; endocrine; and metabolic disorders (8 sources)Obesity; Translations: [Obesity, unspecified]Onset: 06-01-2023 86-70-7547GzxgqglSqhqs nutritional; endocrine; and metabolic disorders (1 source)Obese class II; Translations: [Body mass index 35.0-35.9, adult]Onset: 79-98-8586XjbhllkCbdtd nutritional; endocrine; and metabolic disorders (1 source)Obese class I; Translations: [Body mass index 34.0-34.9, adult]Onset: 58-46-6940LmrfweoQwgos nutritional; endocrine; and metabolic disorders (14 sources)Obesity [...] following treatment for malignant neoplasm of prostate]Onset: 53-85-6309Aqpiosxf Other skin disorders (4 sources)Actinic keratosis; Translations: [Actinic keratosis]08-28-2023 EpisodicOther skin disorders (4 sources)Mass of skin of left upper limb; Translations: [Localized swelling, mass and lump, left upper limb]26-66-9496PsgpuaejNfbae skin disorders (4 sources)Mass of skin of right upper limb; Translations: [Localized swelling, mass and lump, right upper limb]31-63-3354YsoeasqbRxuch skin disorders (1 source)Localized swelling, mass and lump, left upper limb; Translations: [Localized superficial swelling, mass, or lump]38-97-5696HglbyystBujfu skin disorders (2 sources)Seborrheic keratosis; Translations: [Other seborrheic keratosis] 67-37-7458WmhdvuqmVdemg skin disorders (2 sources)Lentiginosis; Translations: [Other melanin hyperpigmentation] 63-23-6564TtejduztAvzku upper respiratory disease (1 source)Seasonal allergic rhinitis; Translations: [Other seasonal allergic rhinitis]Onset: 30-55-7389QsbutfdTbquy upper respiratory disease (7 sources)Vasomotor rhinitis; Translations: [Vasomotor rhinitis]Onset: 238850-69-7622JsaznzsOpuud upper respiratory disease (1 source)Vasomotor rhinitisChronicOther upper respiratory disease (1 source)Other specified disorders of nose and nasal sinusesEpisodicOther upper respiratory disease (2 sources)Mass of body region; Translations: [Other specified disorders of nose and nasal sinuses]56-26-9153IcfoaedyMzjnffxbzb disorders (not diabetes) (6 sources)Other specified diseases of pancreas; Translations: [Cyst of pancreas]EpisodicComment on above:MRCP: no significant change in 2021, 2022, 4Residual codes; unclassified (20 sources)Obstructive sleep apnea syndrome; Translations: [Obstructive sleep apnea (adult) (pediatric)]Onset: 287158-68-2415PnwkmsiBfblxnrd codes; unclassified (7 sources)Obstructive sleep apnea (adult) (pediatric); Translations: [Obstructive sleep apnea (adult)(pediatric)]ChronicResidual codes; unclassified (6 sources)Sleep apnea; Translations: [Sleep apnea, unspecified]Onset: 836559-84-3633IqmytqaFlhynkkfl malignancies (8 sources)Secondary malignant neoplasm of bone; Translations: [Secondary malignant neoplasm of bone]ChronicSecondary malignancies (3 sources)Secondary malignant neoplasm of bone; Translations: [Secondary malignant neoplasm of bone (HCC)]Onset: 47-28-6510YsbezulZlpkvtwgczu; intervertebral disc disorders; other back problems (20 sources)Cervical spondylosis; Translations: [Other spondylosis with radiculopathy, cervical region]Onset: 06-27-2593NyyribpJanmtdg and strains (7 sources)Strain of hamstring muscle; Translations: [Right hamstring muscle strain]EpisodicUnclassified (1 source)OPENED IN ERRORUnclassified (3 sources)Hearing loss; Translations: [Impaired hearing]Onset: 06-01-2023 06-01-2023 Past or Other Problems Problem ClassificationProblemDateDocumented DateEpisodic/ChronicAcute posthemorrhagic anemia (1 source)Acute posthemorrhagic anemia; Translations: [Acute posthemorrhagic anemia]Onset: 29-39-2934BuqioqqiXbqgezxq reactions (1 source)Idiopathic urticaria; Translations: [Idiopathic urticaria]Onset: 71-08-1775GydbmndvRlky; stupor; and brain damage (1 source)Somnolence; Translations: [Somnolence]Onset: 45-42-7678Bzyovdaj Deficiency and other anemia (1 source)Anemia; Translations: [Anemia, unspecified]Onset: 45-11-0100Hzczyrwj Diabetes mellitus without complication (1 source)Impaired fasting glycemia; Translations: [Impaired fasting glucose] Onset: 15-50-9515CndeckalIozjvxttggoi injury (1 source)Concussion with no loss of consciousness; Translations: [Concussion without loss of consciousness, subsequent encounter]Onset: 84-92-0015Cpuqklma Malaise and fatigue (1 source)Malaise and fatigue; Translations: [Other malaise and fatigue]Onset: 45-53-2323VhbcfccoHnwztxucwyp chest pain (1 source)Chest pain; Translations: [Chest pain, unspecified]Onset: 08-25-2014 EpisodicOther non-traumatic joint disorders (5 sources)Pain in left shoulder; Translations: [PAIN IN LEFT SHOULDER]Onset: 42-24-0960GdwsvydoZasdf nutritional; endocrine; and metabolic disorders (1 source)Morbid obesity; Translations: [Morbid (severe) obesity due to excess calories] Resolved: 99-48-5983GpvesbdOwpmptwv codes; unclassified (1 source)Requires influenza virus vaccination; Translations: [Need for prophylactic vaccination and inoculation, Influenza]Onset: 88-14-8340Rocaztns Spondylosis; intervertebral disc disorders; other back problems (6 sources)Neck pain; Translations: [Cervicalgia]Onset: 196534-81-7829 Episodic Results Test NameValueInterpretationReference RangeFacilityCNOVSPon 19-74-9011POOKJD Visit (SP) Office [facility] PABLO FELIX ([id number]) 1945 M Date Time Provider Department 05/22/25 11:00 AM CHARY SHERMAN During your visit today, we recorded the following information about you: Temperature Pulse Respiration Blood pressure 97.2 degrees 51/minute 16/minute 140/56 Weight Height 92.3 kg 1.676 m Chary Sherman APRN.CNP 05/22/2025 3:33 PM Signed NAME: Folk, [facility] NO.: [id number] DATE OF SERVICE: May 22, 2025 ([place]) Some elements in this clinic note that are critical to medical decision making have been carefully reviewed and included from a prior clinic note dated: February 20, 2025 (Denice) Referring Provider: RADHA Additional Clinicians involved in Pablo Felix's care: Dr. Jamar Fall, Dr. Anthony Scruggs, Dr. 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 Stable on current medications. Continue [...] with lactase enzyme supp (more content not included)...[facility] Auto Differential panel (Bld)on 41-02-9418Kvdlxglwv (Bld) [#/Vol] 0.03 10*3/uLNormal<0.11CZanesville City Hospital on above:Order Comment: Specimen Type: BLOOD SPECIMEN Ordering Facility: [facility] Address: [address] [place], [place] [address]Performed By: #### 2857-1 #### [facility] CLIA [id number] [address] [place] [address] [place] OF AMERICABasophils/100 WBC (Bld)0.4 %Normal [facility] on above:Order Comment: Specimen Type: BLOOD SPECIMEN Ordering Facility: [facility] Address: [address] [place], [place] [address]Performed By: #### 2857-1 #### [facility] CLIA [id number] [address] [place] [address] [place] OF AMERICADifferential cell count method Nom (Bld)AutoNormalCZanesville City Hospital on above:Order Comment: Specimen Type: BLOOD SPECIMEN Ordering Facility: [facility] Address: [address] [place], [place] [address]Performed By: #### 2857-1 #### [facility] CLIA [id number] [address] [place] [address] [place] AMERICAEosinophils (Bld) [#/Vol]0.36 10*3/uLNormal<0.46[facility] on above:Order Comment: Specimen Type: BLOOD SPECIMEN Ordering Facility: [facility] Address: [address] [place], [place] [address]Performed By: #### 2857-1 #### [facility] CLIA [id number] [address] [place] [address] [place] AMERICAEosinophils/100 WBC (Bld)5.2 %Normal [facility] on above:Order Comment: Specimen Type: BLOOD SPECIMEN Ordering Facility: [facility] Address: [address] [place], [place] [address]Performed By: #### 2857-1 #### [facility] CLIA [id number] [address] [place] [address] [place] AMERICAErythrocyte distribution width (RBC) [Ratio]12.6 %Kgxqog08.5-15.0[facility] on above:Order Comment: Specimen Type: BLOOD SPECIMEN Ordering Facility: [facility] Address: [address] [place], [place] [address]Performed By: #### 2857-1 #### [facility] CLIA [id number] [address] [place] [address] [place] AMERICAHematocrit (Bld) [Volume fraction] 34.8 %Low39.0-51.0[facility] on above:Order Comment: Specimen Type: BLOOD SPECIMEN Ordering Facility: [facility] Address: [address] [place], [place] [address]Performed By: #### 2857-1 #### [facility] CLIA [id number] [address] [place] [address] [place] AMERICAHemoglobin (Bld) [Mass/Vol]11.7 g/dL Low13.0-17.0[facility] on above:Order Comment: Specimen Type: BLOOD SPECIMEN Ordering Facility: [facility] Address: [address] [place], [place] [address]Performed By: #### 2857-1 #### [facility] CLIA [id number] [address] [place] [address] [place] AMERICAImmature granulocytes (Bld) [#/Vol] 0.06 10*3/uLNormal<0.10[facility] on above:Order Comment: Specimen Type: BLOOD SPECIMEN Ordering Facility: [facility] Address: [address] [place], [place] [address]Performed By: #### 2857-1 #### [facility] CLIA [id number] [address] [place] [address] [place] AMERICAImmature granulocytes/100 WBC (Bld) 0.9 %NormalThe [facility] Hospital on above:Order Comment: Specimen Type: BLOOD SPECIMEN Ordering Facility: [facility] Address: [address] [place], [place] [address]Performed By: #### 2857-1 #### [facility] CLIA [id number] [address] [place] [address] [place] OF AMERICALymphocytes (Bld) [#/Vol]2.01 10*3/uLNormal1.00-4.00[facility] on above:Order Comment: Specimen Type: BLOOD SPECIMEN Ordering Facility: [facility] Address: [address] [place], [place] [address]Performed By: #### 2857-1 #### [facility] CLIA [id number] [address] [place] [address] [place] AMERICALymphocytes/100 WBC (Bld)29.0 % NormalThe [facility] Hospital on above:Order Comment: Specimen Type: BLOOD SPECIMEN Ordering Facility: [facility] Address: [address] [place], [place] [address]Performed By: #### 2857-1 #### [facility] CLIA [id number] [address] [place] [address] (RBC) [Entitic mass]32.1 pg Niqkwg20.0-34.0[facility] on above:Order Comment: Specimen Type: BLOOD SPECIMEN Ordering Facility: [facility] Address: [address] [place], [place] [address]Performed By: #### 2857-1 #### [facility] CLIA [id number] [address] [place] [address] (RBC) [Mass/Vol]33.6 g/dLNormal 30.5-36.0[facility] on above:Order Comment: Specimen Type: BLOOD SPECIMEN Ordering Facility: [facility] Address: [address] [place], [place] [address]Performed By: #### 2857-1 #### [facility] CLIA [id number] [address] [place] [address] [place] AMERICAMCV (RBC) [Entitic vol]95.6 fLNormal 80.0-100.0[facility] on above:Order Comment: Specimen Type: BLOOD SPECIMEN Ordering Facility: [facility] Address: [address] [place], [place] [address]Performed By: #### 2857-1 #### [facility] CLIA [id number] [address] [place] [address] [place] AMERICAMonocytes (Bld) [#/Vol]0.60 10*3/uL Normal<0.87[facility] on above:Order Comment: Specimen Type: BLOOD SPECIMEN Ordering Facility: [facility] Address: [address] [place], [place] [address]Performed By: #### 2857-1 #### [facility] CLIA [id number] [address] [place] [address] [place] AMERICAMonocytes/100 WBC (Bld)8.6 %Normal [facility] on above:Order Comment: Specimen Type: BLOOD SPECIMEN Ordering Facility: [facility] Address: [address] [place], [place] [address]Performed By: #### 2857-1 #### [facility] CLIA [id number] [address] [place] [address] [place] AMERICANeutrophils (Bld) [#/Vol]3.88 10*3/uLNormal1.45-7.50[facility] on above:Order Comment: Specimen Type: BLOOD SPECIMEN Ordering Facility: [facility] Address: [address] [place], [place] [address]Performed By: #### 2857-1 #### [facility] CLIA [id number] [address] [place] [address] [place] AMERICANeutrophils/100 WBC (Bld)55.9 % NormalThe [facility] Hospital on above:Order Comment: Specimen Type: BLOOD SPECIMEN Ordering Facility: [facility] Address: [address] [place], [place] [address]Performed By: #### 2857-1 #### [facility] CLIA [id number] [address] [place] [address] [place] AMERICANucleated RBC (Bld) [#/Vol]10*3/uL Normal<0.01[facility] on above:Order Comment: Specimen Type: BLOOD SPECIMEN Ordering Facility: [facility] Address: [address] [place], [place] [address]Performed By: #### 2857-1 #### [facility] CLIA [id number] [address] [place] [address] [place] AMERICANucleated RBC/100 WBC (Bld) [Ratio] 0.0 /100 WBCNormalCZanesville City Hospital on above:Order Comment: Specimen Type: BLOOD SPECIMEN Ordering Facility: [facility] Address: [address] [place], [place] [address]Performed By: #### 2857-1 #### [facility] CLIA [id number] [address] [place] [address] [place] AMERICAPlatelet mean volume (Bld) [Entitic vol]10.4 fLNormal9.0-12.7CZanesville City Hospital on above:Order Comment: Specimen Type: BLOOD SPECIMEN Ordering Facility: [facility] Address: [address] [place], [place] [address]Performed By: #### 2857-1 #### [facility] CLIA [id number] [address] [place] [address] [place] AMERICAPlatelets (Bld) [#/Vol]206 10*3/uL Mpjhbw440-971AprbawljjThe [facility] Hospital on above:Order Comment: Specimen Type: BLOOD SPECIMEN Ordering Facility: [facility] Address: [address] [place], [place] [address]Performed By: #### 2857-1 #### [facility] CLIA [id number] [address] [place] [address] STATES OF AMERICARBC (Bld) [#/Vol]3.64 10*6/uLLow 4.20-6.00[facility] on above:Order Comment: Specimen Type: BLOOD SPECIMEN Ordering Facility: [facility] Address: [address] [place], [place] [address]Performed By: #### 2857-1 #### [facility] CLIA [id number] [address] [place] [address] STATES AMERICAWBC (Bld) [#/Vol]6.94 10*3/uLNormal 3.70-11.00[facility] on above:Order Comment: Specimen Type: BLOOD SPECIMEN Ordering Facility: [facility] Address: [address] [place], [place] [address]Performed By: #### 2857-1 #### [facility] CLIA [id number] [address] [place] [address] AMERICAComprehensive metabolic 2000 panelon 67-18-8526Bglsvbu [Mass/Vol]4.2 g/dLNormal3.9-4.9CGreen [facility] Comment on above:Order Comment: Specimen Type: BLOOD SPECIMEN Ordering Facility: [facility] Address: [address] [place], [place] [address]Performed By: #### 14241-4 #### [facility] CLIA [id number] [address] [place] [address]GGU [Catalytic activity/Vol]83 U/EGdpypp17-241XxkfrtyppThe [facility] Hospital on above:Order Comment: Specimen Type: BLOOD SPECIMEN Ordering Facility: [facility] Address: [address] [place], [place] [address]Performed By: #### 24309-5 #### [facility] CLIA [id number] [address] [place], [place] [address]OXB [Catalytic activity/Vol]20 U/SAfooel34-17FfxisohxtThe [facility] Hospital on above:Order Comment: Specimen Type: BLOOD SPECIMEN Ordering Facility: [facility] Address: [address] [place], [place] [address]Performed By: #### 89458-0 #### [facility] CLIA [id number] [address] [place], [place] [address]Vkwgv gap [Moles/Vol]12 mmol/LNormal8-15[facility] on above:Order Comment: Specimen Type: BLOOD SPECIMEN Ordering Facility: [facility] Address: [address] [place], [place] [address]Performed By: #### 58050-0 #### [facility] CLIA [id number] [address] [place], [place] [address]FJB [Catalytic activity/Vol]19 U/YOidmxm97-12QxpahtnwqThe [facility] Hospital on above:Order Comment: Specimen Type: BLOOD SPECIMEN Ordering Facility: [facility] Address: [address] [place], [place] [address]Performed By: #### 83273-7 #### [facility] CLIA [id number] [address] [place], [place] [address]Vavndmwku [Mass/Vol]0.8 mg/dLNormal0.2-1.3CZanesville City Hospital on above:Order Comment: Specimen Type: BLOOD SPECIMEN Ordering Facility: [facility] Address: [address] [place], [place] [address]Performed By: #### 66232-2 #### [facility] CLIA [id number] [address] [place], [place] [address]Dbcuudp [Mass/Vol]10.0 mg/dLNormal8.5-10.2CZanesville City Hospital on above:Order Comment: Specimen Type: BLOOD SPECIMEN Ordering Facility: [facility] Address: [address] [place], [place] [address]Performed By: #### 16896-1 #### [facility] CLIA [id number] [address] [place], [place] [address]Jstqlfna [Moles/Vol]103 mmol/BAtiugg89-811GjigcnosvThe Jewish Hospital on above:Order Comment: Specimen Type: BLOOD SPECIMEN Ordering Facility: [facility] Address: [address] [place] [address]Wtmdubfxs By: #### 22440-8 #### [facility] CLIA [id number] [address] [place], [place] [address]AH0 [Moles/Vol]27 mmol/QJslbok51-13SdgzetlabUniversity Hospitals Portage Medical Center Comment on above:Order Comment: Specimen Type: BLOOD SPECIMEN Ordering Facility: [facility] Address: [address] [place], [place] [address]Performed By: #### 11567-6 #### [facility] CLIA [id number] [address] [place] [address]Wrgynhdehx [Mass/Vol]0.73 mg/dLNormal0.73-1.22[facility] on above:Order Comment: Specimen Type: BLOOD SPECIMEN Ordering Facility: [facility] Address: [address] [place], [place] [address]Performed By: #### 65941-6 #### [facility] CLIA [id number] [address] [place] [address]eENFio SerPlBld CKD-EPI 479433 mL/min/1.73m???Normal>=60 [facility] on above:Order Comment: Specimen Type: BLOOD SPECIMEN Ordering Facility: [facility] Address: [address] [place] [address]Ishper Comment: Estimated Glomerular Filtration Rate (eGFR) is [...] not accurately reflect actual GFR.Performed By: #### 10375-8 #### [facility] CLIA [id number] [address] [place], [place] [address]Qkthlhn [Mass/Vol]118 mg/fXYoxa93-97ZocvecocqUniversity Hospitals Portage Medical Center Comment on above:Order Comment: Specimen Type: BLOOD SPECIMEN Ordering Facility: [facility] Address: [address] [place], [place] [address]Result Comment: The [place] Diabetes Association (ADA) provides guidance for cutoff [...] Standards of Medical Care in Diabetes 2016, [place] [employer]. Diabetes Care. 2016.39(Suppl 1).Performed By: #### 58935-1 #### [facility] CLIA [id number] [address] [place], [place] [address]Qncbwtieg [Moles/Vol]4.7 mmol/LNormal3.7-5.1CGreen Cross HospitalComment on above:Order Comment: Specimen Type: BLOOD SPECIMEN Ordering Facility: [facility] Address: [address] [place] [address]Esclzwkzn By: #### 76822-8 #### [facility] CLIA [id number] [address] [place], [place] [address]Zhnmpmt [Mass/Vol]6.5 g/dLNormal6.3-8.0[facility] on above:Order Comment: Specimen Type: BLOOD SPECIMEN Ordering Facility: [facility] Address: [address] [place], [place] [address]Performed By: #### 20263-9 #### [facility] CLIA [id number] [address] [place], [place] [address]Ugbgde [Moles/Vol]142 mmol/TUjphjj380-397GpjloqtsrThe Jewish Hospital on above:Order Comment: Specimen Type: BLOOD SPECIMEN Ordering Facility: [facility] Address: [address] [place], [place] [address]Performed By: #### 61057-9 #### [facility] CLIA [id number] [address] [place] [address]Ckis nitrogen [Mass/Vol]11 mg/dLNormal9-24[facility] on above:Order Comment: Specimen Type: BLOOD SPECIMEN Ordering Facility[facility] Address: [address] [place], [place] [address]Performed By: #### 92545-2 #### [facility] CLIA [id number] [address] [place] [address]SOX SerPl-aCncon 33-88-7790Bofpeyulzuwfuw (EPO) Qn15.5 mIU/mL Normal2.6-18.5CZanesville City Hospital on above:Order Comment: Specimen Type: BLOOD SPECIMEN Ordering Facility: [facility] Address: [address] [place], [place] [address]Performed By: #### 2857-1 #### [facility] CLIA [id number] [address] [place], [place] [address]Ferritin SerPl-mCncon 05-15-2025 Ferritin [Mass/Vol]92.9 ng/tYSlszhl28.3-565.7CZanesville City Hospital on above:Order Comment: Specimen Type: BLOOD SPECIMEN Ordering Facility: [facility] Address: [address] [place], [place] [address]Performed By: #### 03566-1 #### [facility] CLIA [id number] [address] [place] [address]Zvfwws SerPl-mCncon 56-55-1588Lhvsla [Mass/Vol]ng/mLNormal>4.7 [facility] on above:Order Comment: Specimen Type: BLOOD SPECIMEN Order[facility] Address: [address] [place], [place] [address]Result Comment: A result of > 20 ng/mL is not necessarily indicative of a pathologic or treatable condition: it reflects a limitation of the test methodology. Assay reference range: 4.8 to 24.2 ng/mL. Suitable for detection of folate deficiency. Reference: Folate III (Folate III) [package insert V 1.0 Azeri]. [employer], [place], [place]: May 2015.Performed By: #### 44007-9 #### [facility] CLIA [id number] [address] [place] [address]Bcgt and Iron binding capacity panelon 53-65-0284Cvtr [Mass/Vol]74 ug/wWMzcrgm63-154TijytaalwThe Jewish Hospital on above:Order Comment: Specimen Type: BLOOD SPECIMEN Order[facility] Address: [address] [place], [place] [address]Performed By: #### 2857-1 #### [facility] CLIA [id number] [address] [place] [address] [place] OF AMERICAIron binding capacity [Mass/Vol]416 ug/eUYhzo953-262DcyzqqcwpThe Jewish Hospital on above:Order Comment: Specimen Type: BLOOD SPECIMEN Ordering Facility[facility] Address: [address] [place], [place] [address]Performed By: #### 2857-1 #### [facility] CLIA [id number] [address] [place] [address] [place] AMERICAIron/TIBC [Molar ratio]17.8 %Normal 15.0-57.0[facility] on above:Order Comment: Specimen Type: BLOOD SPECIMEN [facility] Address: [address] [place], [place] [address]Performed By: #### 2857-1 #### [facility] CLIA [id number] [address] [place] [address] [place] AMERICAPSA SerPl-mCncon 40-58-7270Ahtqqdvi specific Ag [Mass/Vol]0.39 ng/mLNormal<2.60[facility] on above:Order Comment: Specimen Type: BLOOD SPECIMEN Order[facility] Address: [address] [place], [place] [address]Result Comment: Total PSA test methodology used is the Electrochemiluminescence Immunoassay by [employer]. Total PSA values by differing methodologies cannot be interchanged. Performed By: #### 2857-1 #### [facility] CLIA [id number] [address] [place], [place] [address]Vit B12 [facility] 05-15-2025 Cobalamin (Vitamin B12) [Mass/Vol]440 pg/sBTtwzes733-3939Cmoycbcho Clinic ClevelandComhenry [facility] on above:Order Comment: Specimen Type: BLOOD SPECIMEN Ordering Facility[facility] Address: [address] [place], [place] [address]Performed By: #### 00341-6 #### [facility] CLIA [id number] [address] [place] [address]Iwvzxj Onlyon 97-01-4551Rkqcvk [id number] Pablo Felix 1945 M Date Provider Department [place] 04/04/2025 [id number], HISTORICAL CARD [facility] Family History Problem Relation Age of Onset Coronary artery disease Father Family Status - Relation Status Age at FatherNormalUniversity of Odessa Regional Medical CenterAmbulatory Visit Summaryon [id number] Visit SummaryAmbulatory Visit Summary PABLO FELIX :1945 [...] mg Tab) ipratropium nasal (ipratropium Nasal 0.06% [place]) metformin (metformin 1000 mg oral tablet) metoprolol [...] AM EDT With: Where: [facility] [address] [place] [address]- Monday2025 11:15 AM EDT With: Anthony SCRUGGS MD Where: [facility] [address] [place] [address]- You Need to Schedule the Following Appointments Follow Up with Anthony SCRUGGS MD, URL When: Comments: 6 mos w/ PSA, Lupron Where: [address] [place] [address] Medications What How Much When Instructions Unchanged [...] concerns Unchanged ipratropium nasal (ipratropium Nasal 0.06% [place]) Contact prescribing physician if questions or concerns [...] ??? Before radiation t (more content not included)...[facility] HospitalU[facility] Office/Clinic Noteon 57-56-7555Qtqcjiw Office/Clinic NoteUrology Office/Clinic Note Chief Complaint 6 [...] Contact Information KAEL JAMES, Anthony Lee, URL [address] [place] [address] [place] [address] Additional Instructions: 6 mos w/ PSA, Lupron [...] 1 tab(s), Oral, Daily ipratropium Nasal 0.06% [place] metformin 1000 mg oral tablet, Oral, BID [...] Household tobacco concerns: No., (more content not included)...[facility]rington HospitalComment on above:Result Comment: Electronically Signed By: Anthony SCRUGGS MD\.br\Date and Time Signed: 03/31/25 10:40 EDT\.br\Electronically Co-Signed By: Jeanine Crandall\.br\Date and Time Co-Signed: 03/31/25 10:35 EDTNo Panel InformationOrdered By: Outside Provider on 03-24-2025 Prostate Specific Antigen Screen0.42 ng/mL<=4.00[facility]-Rittman HospitalBasophils Auto (Bld) [#/Vol]Ordered By: Anirudh Quiroz on 03-20-2025 Basophils (Bld) [#/Vol]0.0 10 3/uL0.0-0.1FCleveland Clinic Mercy Hospital Basophils/100 WBC Auto (Bld)Ordered By: Anirudh Quiroz on 03-20-2025 Basophils/100 WBC (Bld)0.5 %0.2-2.0[facility]itt[facility] HospitalCholesterol in LDL Calc [Mass/Vol]Ordered By: Anirudh Quiroz on 31-41-1541Xbigphgggtg in LDL [Mass/Vol]66.6 mg/dLWadsworth-Rittman HospitalComment on above:<100 mg/dl RRUTTOH031-240 mg/dl NEAR OR ABOVE UUTMNFR047-800 mg/dl BORDERLINE HQED409-436 mg/dl HIGH>190 mg/dl VERY HIGHCholesterol in VLDL Calc [Mass/Vol] Ordered By: Anirudh Quiroz on 52-10-6275Vwnnmypndiq in VLDL [Mass/Vol]23.4 mg/dL [facility]itt[facility] HospitalEosinophils/100 WBC Auto (Bld)Ordered By: Anirudh Quiroz on 36-75-9970Jplrcnvbnco/100 WBC (Bld)6.6 %0.9-7.0[facility]-Rittman HospitalErythrocyte distribution width Auto (RBC) [Ratio]Ordered By: Anirudh Quiroz on 11-41-5824Eqhdjelgeih distribution width (RBC) [Ratio]12.6 %11.0-15.0[facility]ittman HospitalGlobulin Calc (S) [Mass/Vol]Ordered By: Anirudh Quiroz on 30-92-8927Hobgkqwo (S) [Mass/Vol]3.3 g/dLWadsworth-Rittman HospitalGlomerular filtration rate (GFR) estimation in non- AmericanOrdered By: Anirudh Quiroz on 19-76-4226GRR/1.73 sq M.predicted among non-blacks MDRD (S/P/Bld) [Vol rate/Area]mL/min/{1.73_m2}>=60 mL/min/1.73m 2FCleveland Clinic Mercy HospitalHematocrit Auto (Bld) [Volume fraction]Ordered By: Anirudh Quiroz on 86-45-8610Uqgyriedka (Bld) [Volume fraction]33.8 %Low 42.0-54.0[facility]-Rittman HospitalHemoglobin [Mass/volume] in Blood Ordered By: Anirudh Quiroz on 92-63-4616Gtadrezphu (Bld) [Mass/Vol]11.4 g/dLLow 14.0-18.0[facility]itt[facility] HospitalLaboratory - Chemistry and Chemistry - challengeOrdered By: Anirudh Quiroz on 15-44-2296Uxeixvn [Mass/Vol]3.3 g/dLLow 3.4-5.0[facility]itt[facility] HospitalALP [Catalytic activity/Vol]71 U/L46-116 [facility] HospitalALT [Catalytic activity/Vol]28 U/L16-63 [facility] HospitalAST [Catalytic activity/Vol]17 U/L15-37 [facility]ittman HospitalBilirubin [Mass/Vol]0.8 mg/dL0.2-1.0[facility]itt[facility] HospitalCalcium [Mass/Vol]8.9 mg/dL8.5-10.1FCleveland Clinic Mercy HospitalChloride [Moles/Vol]105 mmol/I89-642QplsvkhunWadsworth-Rittman HospitalCholesterol [Mass/Vol]133 mg/dL<=200[facility] Cholesterol in HDL [Mass/Vol]43 mg/hH51-98PmwvmlltkWadsworth-Rittman Hospital Comment on above:> or =60 mg/dl - LOW CARDIOVASCULAR RISK<40 mg/dl - HIGH CARDIOVASCULAR RISKCO2 [Moles/Vol]26.6 mmol/L21.0-32.0[facility] HospitalCreatinine [Mass/Vol]0.81 mg/dL0.70-1.30[facility] GFR/1.73 sq M.predicted MDRD (S/P/Bld) [Vol rate/Area]mL/min/{1.73_m2}>=60 mL/min/1.73m 2FCleveland Clinic Mercy HospitalGlucose [Mass/Vol]116 mg/dLHigh 74-106[facility] HospitalPotassium [Moles/Vol]5.2 mmol/LHigh 3.5-5.1FCleveland Clinic Mercy HospitalProtein [Mass/Vol]6.6 g/dL6.4-8.2 [facility]odium [Moles/Vol]140 mmol/V225-568JllehzcnlWadsworth-Rittman HospitalTriglyceride [Mass/Vol]117 mg/dL<=150W[facility]itt[facility] HospitalTSH Qn1.719 m[IU]/L0.358-3.740[facility] Urea nitrogen [Mass/Vol]15.0 mg/dL7.0-18.0[facility]itt[facility] HospitalUrea nitrogen/Creatinine [Mass ratio]18.5 mg/mgWadsworth-Rittman Hospital Laboratory - Hematology and Cell countsOrdered By: Anirudh Quiroz on 03-20-2025 Immature granulocytes/100 WBC (Bld)0.7 %High0.0-0.5FCleveland Clinic Mercy HospitalLeukocytes [#/volume] corrected for nucleated erythrocytes in Blood by Automated counOrdered By: Anirudh Quiroz on 36-24-5364QRK corrected for nucl RBC Auto (Bld) [#/Vol]5.6 10 3/uL4.0-11.0[facility] Lymphocytes Auto (Bld) [#/Vol]Ordered By: Anirudh Quiroz on 03-20-2025 Lymphocytes (Bld) [#/Vol]1.5 10 3/uL1.2-3.8[facility] Lymphocytes/100 WBC Auto (Bld)Ordered By: Anirudh Quiroz on 03-20-2025 Lymphocytes/100 WBC (Bld)26.7 %20.5-60.0[facility] CampusH Auto (RBC) [Entitic mass]Ordered By: Anirudh Quiroz on 15-22-1656CYQ (RBC) [Entitic mass]32.2 pg25.9-34.0[facility]ittman HospitalMCHC Auto (RBC) [Mass/Vol]Ordered By: Anirudh Quiroz on 65-82-8862JIDQ (RBC) [Mass/Vol]33.7 g/dL 29.9-35.2FCleveland Clinic Mercy HospitalMCV Auto (RBC) [Entitic vol]Ordered By: Anirudh Quiroz on 41-92-2577WXW (RBC) [Entitic vol]95.5 gWAbyy88.0-94.0 [facility] HospitalMonocytes Auto (Bld) [#/Vol]Ordered By: Anirudh Quiroz on 05-15-9679Hwgjltdio (Bld) [#/Vol]0.5 10 3/uL0.3-0.8[facility]ittman HospitalMonocytes/100 WBC Auto (Bld)Ordered By: Anirudh Quiroz on 68-44-1050Qhzctduhi/100 WBC (Bld)9.6 %1.7-12.0[facility] Neutrophils Auto (Bld) [#/Vol]Ordered By: Anirudh Quiroz on 03-20-2025 Neutrophils (Bld) [#/Vol]3.1 10 3/uL1.4-6.5FCleveland Clinic Mercy Hospital Neutrophils/100 WBC Auto (Bld)Ordered By: Anirudh Quiroz on 03-20-2025 Neutrophils/100 WBC (Bld)55.9 %43.0-75.0[facility] HospitalNo Panel InformationOrdered By: Anirudh Quiroz on 44-30-6410Cmqsinesdcy # (Auto)0.4 10 3/uL0.0-0.7FCleveland Clinic Mercy HospitalImmature Granulocyte # (Auto) 0.04 10 3/uLHigh0.00-0.03[facility] HospitalOffice Visiton 74-43-1998Apsqae-up [id number] Pablo Felix 1945 M Date Provider Department Center 03/20/2025 Lakia-ANIRUDH QUIROZ CARD [facility] Family History Problem Relation Age of Onset Coronary artery disease Father Family Status - Relation Status Age at Father Level of Service:55174 [place] OFFICE/OUTPATIENT ESTABLISHED MOD MDM 30 MIN Reason for Visit and Comments: Coronary Artery Disease [187] - Denies chest pain and SOB. No recent testing. Valve Disorder [3372] - Denies lightheadedness and palpitations. Hypertension [109338] - Had labs in January 2025. Hyperlipidemia [182] - [facility].NormalUnOhio State Health SystemPlatelet mean volume Auto (Bld) [Entitic vol]Ordered By: Anirudh Quiroz on 40-55-7475Otfxhhrn mean volume (Bld) [Entitic vol]10.4 fL9.5-13.5FCleveland Clinic Mercy HospitalPlatelets Auto (Bld) [#/Vol]Ordered By: Anirudh Quiroz on 52-12-8996Nvfoolale (Bld) [#/Vol]185 10 3/yN567-857HtjftaeueWadsworth-Rittman HospitalRBC Auto (Bld) [#/Vol] Ordered By: Anirudh Quiroz on 77-32-2517VDN (Bld) [#/Vol]3.54 10 6/uLLow 4.70-6.10[facility] - Youngstownerum or plasma albumin/globulin mass ratioOrdered By: Anirudh Quiroz on 48-91-4309Tkalfdf/Globulin [Mass ratio]1.0 {ratio}[facility] - Youngstownerum or plasma anion gap determination Ordered By: Anirudh Quiroz on 00-24-2308Vcjpl gap [Moles/Vol]13.6 mmol/L [facility] - Youngstownerum or plasma total cholesterol/high density lipoprotein (HDL) cholesterol mass ratOrdered By: Anirudh Quiroz on 03-20-2025 Cholesterol.total/Cholesterol in HDL [Mass ratio]3.1 {ratio}[facility]ittman HospitalComment on above:3.3 - 4.4 LOW RISK4.4 - 7.1 AVERAGE RISK7.1 - 11.0 MODERATE RISK>11.0 HIGH RISKNo Panel Informationon 17-89-1976NSKF HealthcareCNOVSPon 10-22-7104KKVGANZklqs (SP) Office ([place]) PABLO FELIX ([id number]) 1945 M Date Time Provider Department 02/20/25 10:20 AM SAUL TRACEY During your visit today, we recorded the following information about you: Temperature Pulse Respiration Blood pressure 97.6 degrees 60/minute 16/minute 130/84 Weight 91.4 kg Saul Tracey MD 02/20/2025 10:48 AM Signed NAME: Pablo Felix CLINIC NO.: [id number] DATE OF SERVICE: February 20, 2025 (Denice) Some elements in this clinic note that are critical to medical decision making have been carefully reviewed and included from a prior clinic note dated: 11/07/2024 (Dheeraj) Referring Provider: RADHA Additional Clinicians involved in Pablo Felix's care: Dr. Jamar Fall, Dr. Anthony Scruggs, Dr. Khan, [facility] Cardiology DIAGNOSIS: Metastatic prostate cancer CASE SUMMARY / ASSESSMENT: 80 year old man with. 1. Metastatic prostate cancer (HCC) - ICD9: 185, ICD10: C61 (primary diagnosis) The patient was diagnosed with early-stage high-grade prostate cancer in June 2014 (TRUS biopsy 07/02/2014). He underwent a radical prostatectomy on 11/05/2014. Pathology consistent with stage IIIC (pT2b, N0, M0), Cerulean 5+4 equal 9. 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 Stable on current medications. Continue [...] function is normal. Ane (more content not included)...NormalUniversity Hospitals Portage Medical CenterBasophils Auto (Bld) [#/Vol]Ordered By: Marco A sEqueda on 58-66-2034Dsvilqhxh (Bld) [#/Vol]0.03 10*3/uL<0.11[facility]ittman HospitalBasophils/100 WBC Auto (Bld)Ordered By: Marco A Esqueda on 18-68-3631Jletysnzb/100 WBC (Bld)0.4 %[facility] HospitalBlood manual differential comment interpretation narrativeOrdered By: Marco A Esqueda on 81-14-6968Wkttxf differential comment [place] (Bld) [Interp]AutoWadsworth-Rittman HospitalCBC W Auto Differential panel (Bld)on 44-78-0154Tdxslxzws (Bld) [#/Vol]0.03 10*3/uLNormal<0.11CZanesville City Hospital on above:Order Comment: Specimen Type: BLOOD SPECIMEN Ordering Facility: [facility] Address: [address] [place], [place] [address]Performed By: #### 2857-1 #### [facility] CLIA [id number] [address] [place] [address] [place] AMERICABasophils/100 WBC (Bld)0.4 %Normal [facility] on above:Order Comment: Specimen Type: BLOOD SPECIMEN Ordering Facility: [facility] Address: [address] [place], [place] [address]Performed By: #### 2857-1 #### [facility] CLIA [id number] [address] [place] [address] [place] AMERICADifferential cell count method Nom (Bld)AutoNormalCZanesville City Hospital on above:Order Comment: Specimen Type: BLOOD SPECIMEN Ordering Facility: [facility] Address: [address] [place], [place] [address]Performed By: #### 2857-1 #### [facility] CLIA [id number] [address] [place] [address] [place] AMERICAEosinophils (Bld) [#/Vol]0.53 10*3/uLHigh<0.46[facility] on above:Order Comment: Specimen Type: BLOOD SPECIMEN Ordering Facility: [facility] Address: [address] [place], [place] [address]Performed By: #### 2857-1 #### [facility] CLIA [id number] [address] [place] [address] [place] AMERICAEosinophils/100 WBC (Bld)7.5 %Normal [facility] on above:Order Comment: Specimen Type: BLOOD SPECIMEN Ordering Facility: [facility] Address: [address] [place], [place] [address]Performed By: #### 2857-1 #### [facility] CLIA [id number] [address] [place] [address] [place] AMERICAErythrocyte distribution width (RBC) [Ratio]12.7 %Tyoigz46.5-15.0[facility] on above:Order Comment: Specimen Type: BLOOD SPECIMEN Ordering Facility: [facility] Address: [address] [place], [place] [address]Performed By: #### 2857-1 #### [facility] CLIA [id number] [address] [place] [address] [place] AMERICAHematocrit (Bld) [Volume fraction] 35.3 %Low39.0-51.0[facility] on above:Order Comment: Specimen Type: BLOOD SPECIMEN Ordering Facility: [facility] Address: [address] [place], [place] [address]Performed By: #### 2857-1 #### [facility] CLIA [id number] [address] [place] [address] [place] AMERICAHemoglobin (Bld) [Mass/Vol]12.0 g/dL Low13.0-17.0[facility] on above:Order Comment: Specimen Type: BLOOD SPECIMEN Ordering Facility: [facility] Address: [address] [place], [place] [address]Performed By: #### 2857-1 #### [facility] CLIA [id number] [address] [place] [address] [place] AMERICAImmature granulocytes (Bld) [#/Vol] 0.06 10*3/uLNormal<0.10[facility] on above:Order Comment: Specimen Type: BLOOD SPECIMEN Ordering Facility: [facility] Address: [address] [place], [place] [address]Performed By: #### 2857-1 #### [facility] CLIA [id number] [address] [place] [address] [place] AMERICAImmature granulocytes/100 WBC (Bld) 0.8 %NormalThe Jewish Hospital on above:Order Comment: Specimen Type: BLOOD SPECIMEN Ordering Facility: [facility] Address: [address] [place], [place] [address]Performed By: #### 2857-1 #### [facility] CLIA [id number] [address] [place] [address] [place] AMERICALymphocytes (Bld) [#/Vol]2.09 10*3/uLNormal1.00-4.00[facility] on above:Order Comment: Specimen Type: BLOOD SPECIMEN Ordering Facility: [facility] Address: [address] [place], [place] [address]Performed By: #### 2857-1 #### [facility] CLIA [id number] [address] [place] [address] [place] AMERICALymphocytes/100 WBC (Bld)29.5 % NormalThe Jewish Hospital on above:Order Comment: Specimen Type: BLOOD SPECIMEN Ordering Facility: [facility] Address: [address] [place], [place] [address]Performed By: #### 2857-1 #### [facility] CLIA [id number] [address] [place] [address] [place] AMERICAMCH (RBC) [Entitic mass]32.5 pg Yfabee74.0-34.0[facility] on above:Order Comment: Specimen Type: BLOOD SPECIMEN Ordering Facility: [facility] Address: [address] [place], [place] [address]Performed By: #### 2857-1 #### [facility] CLIA [id number] [address] [place] [address] [place] [facility] HOSPITALMCHC (RBC) [Mass/Vol]34.0 g/dLNormal 30.5-36.0[facility] on above:Order Comment: Specimen Type: BLOOD SPECIMEN Ordering Facility: [facility] Address: [address] [place], [place] [address]Performed By: #### 2857-1 #### [facility] CLIA [id number] [address] [place], [place] [address]V (RBC) [Entitic vol]95.7 fLNormal 80.0-100.0[facility] on above:Order Comment: Specimen Type: BLOOD SPECIMEN Ordering Facility: [facility] Address: [address] [place], [place] [address]Performed By: #### 2857-1 #### [facility] CLIA [id number] [address] [place] [address] [place] AMERICAMonocytes (Bld) [#/Vol]0.68 10*3/uL Normal<0.87[facility] on above:Order Comment: Specimen Type: BLOOD SPECIMEN Ordering Facility: [facility] Address: [address] [place], [place] [address]Performed By: #### 2857-1 #### [facility] CLIA [id number] [address] [place] [address] [place] AMERICAMonocytes/100 WBC (Bld)9.6 %Normal [facility] on above:Order Comment: Specimen Type: BLOOD SPECIMEN Ordering Facility: [facility] Address: [address] [place], [place] [address]Performed By: #### 2857-1 #### [facility] CLIA [id number] [address] [place] [address] [place] AMERICANeutrophils (Bld) [#/Vol]3.70 10*3/uLNormal1.45-7.50[facility] on above:Order Comment: Specimen Type: BLOOD SPECIMEN Ordering Facility: [facility] Address: [address] [place], [place] [address]Performed By: #### 2857-1 #### [facility] CLIA [id number] [address] [place] [address] [place] AMERICANeutrophils/100 WBC (Bld)52.2 % NormalThe Jewish Hospital on above:Order Comment: Specimen Type: BLOOD SPECIMEN Ordering Facility: [facility] Address: [address] [place], [place] [address]Performed By: #### 2857-1 #### [facility] CLIA [id number] [address] [place] [address] [place] AMERICANucleated RBC (Bld) [#/Vol]10*3/uL Normal<0.01[facility] on above:Order Comment: Specimen Type: BLOOD SPECIMEN Ordering Facility: [facility] Address: [address] [place], [place] [address]Performed By: #### 2857-1 #### [facility] CLIA [id number] [address] [place] [address] [place] AMERICANucleated RBC/100 WBC (Bld) [Ratio] 0.0 /100 WBCNormalCZanesville City Hospital on above:Order Comment: Specimen Type: BLOOD SPECIMEN Ordering Facility: [facility] Address: [address] [place], [place] [address]Performed By: #### 2857-1 #### [facility] CLIA [id number] [address] [place] [address] [place] AMERICAPlatelet mean volume (Bld) [Entitic vol]10.1 fLNormal9.0-12.7CZanesville City Hospital on above:Order Comment: Specimen Type: BLOOD SPECIMEN Ordering Facility: [facility] Address: [address] [place], [place] [address]Performed By: #### 2857-1 #### [facility] CLIA [id number] [address] [place] [address] [place] AMERICAPlatelets (Bld) [#/Vol]204 10*3/uL Yndcqy572-461DiiodgaarThe Jewish Hospital on above:Order Comment: Specimen Type: BLOOD SPECIMEN Ordering Facility: [facility] Address: [address] [place], [place] [address]Performed By: #### 2857-1 #### [facility] CLIA [id number] [address] [place] [address] [place] AMERICARBC (Bld) [#/Vol]3.69 10*6/uLLow 4.20-6.00[facility] on above:Order Comment: Specimen Type: BLOOD SPECIMEN Ordering Facility: [facility] Address: [address] [place], [place] [address]Performed By: #### 2857-1 #### [facility] CLIA [id number] [address] [place] [address] STATES OF AMERICAWBC (Bld) [#/Vol]7.09 10*3/uLNormal 3.70-11.00[facility] on above:Order Comment: Specimen Type: BLOOD SPECIMEN Ordering Facility: [facility] Address: [address] [place], [place] [address]Performed By: #### 2857-1 #### [facility] CLIA [id number] [address] [place] [address] [place] AMERICAComprehensive metabolic 2000 panelon 72-05-9887Qgqualv [Mass/Vol]4.2 g/dLNormal3.9-4.9CGreen [facility] Comment on above:Order Comment: Specimen Type: BLOOD SPECIMEN Ordering Facility: [facility] Address: [address] [place], [place] [address]Performed By: #### 2857-1 #### [facility] CLIA [id number] [address] [place] [address] [place] AMERICAALP [Catalytic activity/Vol]73 U/L Pvlsiq72-965CzsaigrrsThe Jewish Hospital on above:Order Comment: Specimen Type: BLOOD SPECIMEN Ordering Facility: [facility] Address: [address] [place], [place] [address]Performed By: #### 2857-1 #### [facility] CLIA [id number] [address] [place] [address] [place] AMERICAALT [Catalytic activity/Vol]16 U/L Jngzoc70-70UtnlteqrnThe Jewish Hospital on above:Order Comment: Specimen Type: BLOOD SPECIMEN Ordering Facility: [facility] Address: [address] [place], [place] [address]Performed By: #### 2857-1 #### [facility] CLIA [id number] [address] [place] [address] [place] AMERICAAnion gap [Moles/Vol]10 mmol/LNormal 8-15[facility] on above:Order Comment: Specimen Type: BLOOD SPECIMEN Ordering Facility: [facility] Address: [address] [place], [place] [address]Performed By: #### 2857-1 #### [facility] CLIA [id number] [address] [place] [address] [place] AMERICAAST [Catalytic activity/Vol]17 U/L Ldyoyu63-56BdtobedjwThe Jewish Hospital on above:Order Comment: Specimen Type: BLOOD SPECIMEN Ordering Facility: [facility] Address: [address] [place], [place] [address]Performed By: #### 2857-1 #### [facility] CLIA [id number] [address] [place] [address] [place] AMERICABilirubin [Mass/Vol]0.6 mg/dLNormal 0.2-1.3CZanesville City Hospital on above:Order Comment: Specimen Type: BLOOD SPECIMEN Ordering Facility: [facility] Address: [address] [place], [place] [address]Performed By: #### 2857-1 #### [facility] CLIA [id number] [address] [place] [address] [place] AMERICACalcium [Mass/Vol]9.3 mg/dLNormal 8.5-10.2CZanesville City Hospital on above:Order Comment: Specimen Type: BLOOD SPECIMEN Ordering Facility: [facility] Address: [address] [place], [place] [address]Performed By: #### 2857-1 #### [facility] CLIA [id number] [address] [place] [address] [place] AMERICAChloride [Moles/Vol]101 mmol/LNormal 98-107[facility] on above:Order Comment: Specimen Type: BLOOD SPECIMEN Ordering Facility: [facility] Address: [address] [place], [place] [address]Performed By: #### 2857-1 #### [facility] CLIA [id number] [address] [place] [address] [place] AMERICACO2 [Moles/Vol]25 mmol/KWqsgji94-47 [facility] on above:Order Comment: Specimen Type: BLOOD SPECIMEN Ordering Facility: [facility] Address: [address] [place], [place] [address]Performed By: #### 2857-1 #### [facility] CLIA [id number] [address] [place] [address] [place] AMERICACreatinine [Mass/Vol]0.68 mg/dLLow 0.73-1.22[facility] on above:Order Comment: Specimen Type: BLOOD SPECIMEN Ordering Facility: [facility] Address: [address] [place], [place] [address]Performed By: #### 2857-1 #### [facility] CLIA [id number] [address] [place] [address] [place] AMERICAeGFRcr SerPlBld CKD-EPI 223293 mL/min/1.73m???Normal>=60[facility] on above:Order Comment: Specimen Type: BLOOD SPECIMEN Order[facility] Facility: [facility] Address: [address] [place], [place] [address]Result Comment: Estimated Glomerular Filtration Rate (eGFR) is [...] reflect actual GFR.Performed By: #### 2857-1 #### [facility] CLIA [id number] [address] [place] [address] [place] AMERICAGlucose [Mass/Vol]122 mg/eRGypz28-57 [facility] on above:Order Comment: Specimen Type: BLOOD SPECIMEN Order[facility] Facility: [facility] Address: [address] [place], [place] [address]Result Comment: The [place] [employer] (ADA) provides guidance for cutoff [...] Standards of Medical Care in Diabetes 2016, [place] [employer]. Diabetes Care. 2016.39(Suppl 1).Performed By: #### 2857-1 #### [facility] CLIA [id number] [address] [place] [address] [place] AMERICAPotassium [Moles/Vol]4.5 mmol/L Normal3.7-5.1CZanesville City Hospital on above:Order Comment: Specimen Type: BLOOD SPECIMEN Ordering Facility: [facility] Address: [address] [place], [place] [address]Herlinda [place]ELIZREGINAL[place] [id number] By: #### 2857-1 #### [facility] CLIA [id number] [address] [place] [address] [place] AMERICAProtein [Mass/Vol]6.4 g/dLNormal 6.3-8.0[facility] on above:Order Comment: Specimen Type: BLOOD SPECIMEN Order[facility] Facility: [facility] Address: [address] [place], [place] [address]Performed By: #### 2857-1 #### [facility] CLIA [id number] [address] [place] [address] [place] AMERICASodium [Moles/Vol]136 mmol/LNormal 136-144[facility] on above:Order Comment: Specimen Type: BLOOD SPECIMEN Order[facility] Facility: [facility] Address: [address] [place], [place] [address]Performed By: #### 2857-1 #### [facility] CLIA [id number] [address] [place] [address] [place] AMERICAUrea nitrogen [Mass/Vol]14 mg/dL Normal9-24[facility] on above:Order Comment: Specimen Type: BLOOD SPECIMEN [facility] Facility[facility] Address: [address] [place], [place] [address]Performed By: #### 2857-1 #### [facility] CLIA [id number] [address] [place] [address] [place] AMERICAEosinophils/100 WBC Auto (Bld) Ordered By: Marco A Esqueda on 42-86-2203Qyhbrhclqde/100 WBC (Bld)7.5 %[facility]ittman HospitalErythrocyte distribution width Auto (RBC) [Ratio]Ordered By: Marco A Esqueda on 22-10-7824Prdlrnmyjwa distribution width (RBC) [Ratio]12.7 % 11.5-15.0[facility]itt[facility] HospitalHematocrit Auto (Bld) [Volume fraction]Ordered By: Marco A Esqueda on 77-81-6013Cyhaoqncsb (Bld) [Volume fraction]35.3 %Low39.0-51.0[facility]itt[facility] HospitalHemoglobin [Mass/volume] in BloodOrdered By: Marco A Esqueda on 37-29-0653Kzmkcxamme (Bld) [Mass/Vol]12.0 g/dLLow13.0-17.0[facility] HospitalLaboratory - Hematology and Cell countsOrdered By: Marco A Esqueda on 56-54-1108Aerzyunxikl (Bld) [#/Vol]0.53 10*3/uLHigh<0.46[facility] HospitalImmature granulocytes (Bld) [#/Vol]0.06 10*3/uL<0.10[facility] Immature granulocytes/100 WBC (Bld)0.8 %[facility] Leukocytes [#/volume] corrected for nucleated erythrocytes in Blood by Automated counOrdered By: Marco A Esqueda on 70-10-4069KNW corrected for nucl RBC Auto (Bld) [#/Vol]7.09 k/uL3.70-11.00[facility] HospitalLymphocytes Auto (Bld) [#/Vol]Ordered By: Marco A Esqueda on 68-59-1314Txjqilevmrv (Bld) [#/Vol]2.09 10*3/uL1.00-4.00[facility] HospitalLymphocytes/100 WBC Auto (Bld) Ordered By: Marco A Esqueda on 88-03-4195Glaqxyauabr/100 WBC (Bld)29.5 %[facility] Auto (RBC) [Entitic mass]Ordered By: Marco A Esqueda on 68-69-6272VLJ (RBC) [Entitic mass]32.5 pg26.0-34.0[facility] HospitalMCHC Auto (RBC) [Mass/Vol]Ordered By: Marco A Esqueda on 55-55-4281RMTU (RBC) [Mass/Vol]34.0 g/dL30.5-36.0[facility]itt[facility] HospitalMCV Auto (RBC) [Entitic vol]Ordered By: Marco A Esqueda on 61-91-8656MXR (RBC) [Entitic vol]95.7 fL80.0-100.0[facility]itt[facility] HospitalMonocytes Auto (Bld) [#/Vol]Ordered By: Marco A Esqueda on 50-68-1501Ftghhwcmy (Bld) [#/Vol]0.68 10*3/uL<0.87[facility] HospitalMonocytes/100 WBC Auto (Bld)Ordered By: Marco A Esqueda on 24-56-6389Jcapteofd/100 WBC (Bld)9.6 %[facility] Neutrophils Auto (Bld) [#/Vol]Ordered By: Marco A Esqueda on 79-17-5633Mauaxyfqzoj (Bld) [#/Vol]3.70 10*3/uL1.45-7.50[facility] Neutrophils/100 WBC Auto (Bld)Ordered By: Marco A Esqueda on 2025 Neutrophils/100 WBC (Bld)52.2 %[facility] HospitalNo Panel InformationOrdered By: Marco A Esqueda on 38-34-4556Jymqaaaj Specific Antigen0.26 ng/mL<2.60[facility]itt[facility] HospitalComment on above:Total PSA test methodology used is the Electrochemiluminescence Immunoassay by [employer]. Total PSA values by differing methodologies cannot be interchanged. Nucleated RBC Auto (Bld) [#/Vol]Ordered By: Marco A Esqueda on 95-12-8263Losxwppxa RBC (Bld) [#/Vol]10*3/uL<0.01[facility]ittman HospitalNucleated erythrocytes [Presence] in Blood by Automated countOrdered By: Marco A Esqueda on 88-31-2599Ivgjovlzw RBC Auto Ql (Bld)0.0 /100{WBC}[facility]itt[facility] HospitalPSA SerPl-mCncon 58-10-4083Mdskoawq specific Ag [Mass/Vol]0.26 ng/mLNormal <2.60[facility]age Medical CenterComment on above:Order Comment: Specimen Type: BLOOD SPECIMEN Ordering Facility: [facility] Address: [address] [place], [place] [address]Result Comment: Total PSA test methodology used is the Electrochemiluminescence Immunoassay by [employer]. Total PSA values by differing methodologies cannot be interchanged. Performed By: #### 06119-8 #### [facility] CLIA [id number] [address] [place] [address] 15995Lctvciwl mean volume Auto (Bld) [Entitic vol]Ordered By: Marco A Esqueda on 56-57-1066Ancwmnzo mean volume (Bld) [Entitic vol]10.1 fL9.0-12.7 [facility]ittman HospitalPlatelets Auto (Bld) [#/Vol]Ordered By: Marco A Esqueda on 64-52-7706Engdgvcpz (Bld) [#/Vol]204 10*3/bA371-249VfgpgipsnWadsworth-Rittman HospitalRBC Auto (Bld) [#/Vol]Ordered By: Marco A Esqueda on 57-88-7354LKD (Bld) [#/Vol]3.69 10*6/uLLow4.20-6.00[facility]-Rittman HospitalCNOVSPon 97-67-2482GJVOFBAogca ([place]) Office ([place]) PABLO FELIX ([id number]) 1945 M Date Time Provider Department 11/07/24 [...] OTHER PHYSICIANS: Dr. Anthony Scruggs, Dr. Khan, [facility] Cardiology Portions of this encounter [...] mg 24 hr tablet Take by mouth. Xkrpxcklbkzfk-Cfuffqxt-Ivuvee (MULTIVITAMIN 50 PLUS) tab Take 1 tablet [...] Radical retropubic prostatectomy and bilateral pelvic lymphadenectomy ([facility]) Poorly differentiated prostatic adenocarcinoma of left prostate. Left base margin positive for neoplasm. Seminal vesicles with no diagnostic abnormality. 2 resected lymph nodes negative for neoplasm. LABS: Hemoglobin (g/dL) Date Value 10/31/2024 12.4 05/08/2018 12.8 Hem (more content not included)...NormalMer[facility] W Auto Differential panel (Bld)on 31-47-7222Ngzozywet (Bld) [#/Vol]0.05 10*3/uLNormal <0.11CGreen Cross HospitalComment on above:Order Comment: Specimen Type: BLOOD SPECIMEN Ordering Facility: [facility] Address: [address] [place], [place] [address]Gpaipfvif By: #### 71596-1 #### [facility] CLIA [id number] [address] [place] [address] 37307Cqipstlly/100 WBC (Bld)0.7 %[facility] Comment on above:Order Comment: Specimen Type: BLOOD SPECIMEN Ordering Facility: [facility] Address: [address] [place], [place] [address]Njahtshwh By: #### 58290-3 #### [facility] CLIA [id number] [address] [place], [place] [address]Wnbfhgwxfpit cell count method Nom (Bld)AutoNormalClevelMcCullough-Hyde Memorial Hospital on above:Order Comment: Specimen Type: BLOOD SPECIMEN Ordering Facility: [facility] Address: [address] [place], [place] [address]Performed By: #### 01773-7 #### [facility] CLIA [id number] [address] [place] [address] 79523Voonoxnrjll (Bld) [#/Vol]0.51 10*3/uLHigh<0.46[facility] on above:Order Comment: Specimen Type: BLOOD SPECIMEN Ordering Facility: [facility] Address: [address] [place], [place] [address]Performed By: #### 12873-1 #### [facility] CLIA [id number] [address] [place] [address] 09774Yybgxyfgvxf/100 WBC (Bld)7.3 %NormalUniversity Hospitals Portage Medical Center Comment on above:Order Comment: Specimen Type: BLOOD SPECIMEN Ordering Facility: [facility] Address: [address] [place], [place] [address]Performed By: #### 76514-9 #### [facility] CLIA [id number] [address] [place] [address] 56337Xlixzinjhfp distribution width (RBC) [Ratio]12.9 %Normal 11.5-15.0[facility] on above:Order Comment: Specimen Type: BLOOD SPECIMEN Ordering Facility: [facility] Address: [address] [place], [place] [address]Performed By: #### 05225-6 #### [facility] CLIA [id number] [address] [place] [address] 67146Ypzqzhpuee (Bld) [Volume fraction]36.0 %Low39.0-51.0[facility] on above:Order Comment: Specimen Type: BLOOD SPECIMEN Ordering Facility: [facility] Address: [address] [place], [place] [address]Performed By: #### 67207-7 #### [facility] CLIA [id number] [address] [place] [address] 78211Wbxbnuszqn (Bld) [Mass/Vol]12.4 g/dLLow13.0-17.0[facility] on above:Order Comment: Specimen Type: BLOOD SPECIMEN Ordering Facility: [facility] Address: [address] [place], [place] [address]Performed By: #### 24845-2 #### [facility] CLIA [id number] [address] [place] [address] 46993Vttmyrbw granulocytes (Bld) [#/Vol]0.04 10*3/uLNormal<0.10 [facility] on above:Order Comment: Specimen Type: BLOOD SPECIMEN Ordering Facility: [facility] Address: [address] [place], [place] [address]Performed By: #### 96380-8 #### [facility] CLIA [id number] [address] [place] [address] 53787Nvyflcdn granulocytes/100 WBC (Bld)0.6 %NormalThe Jewish Hospital on above:Order Comment: Specimen Type: BLOOD SPECIMEN Ordering Facility: [facility] Address: [address] [place], [place] [address]Performed By: #### 94393-5 #### [facility] CLIA [id number] [address] [place] [address] 75399Dldfyadqvmz (Bld) [#/Vol]1.80 10*3/uLNormal1.00-4.00[facility] on above:Order Comment: Specimen Type: BLOOD SPECIMEN Ordering Facility: [facility] Address: [address] [place], [place] [address]Performed By: #### 01272-4 #### [facility] CLIA [id number] [address] [place] [address] 65538Svuxfgjvnml/100 WBC (Bld)25.8 %NormalThe Jewish Hospital on above:Order Comment: Specimen Type: BLOOD SPECIMEN Ordering Facility: [facility] Address: [address] [place], [place] [address]Performed By: #### 69649-9 #### [facility] CLIA [id number] [address] [place] [address] 22105EXS (RBC) [Entitic mass]32.2 axSaafiu35.0-34.0[facility] on above:Order Comment: Specimen Type: BLOOD SPECIMEN Ordering Facility: [facility] Address: [address] [place], [place] [address]Performed By: #### 14417-9 #### [facility] CLIA [id number] [address] [place] [address] 47634MAGI (RBC) [Mass/Vol]34.4 g/gBYzsyet48.5-36.0[facility] on above:Order Comment: Specimen Type: BLOOD SPECIMEN Ordering Facility: [facility] Address: [address] [place], [place] [address]Performed By: #### 68657-8 #### [facility] CLIA [id number] [address] [place] [address] 96271PXL (RBC) [Entitic vol]93.5 mZNamcix12.0-100.0[facility] on above:Order Comment: Specimen Type: BLOOD SPECIMEN Ordering Facility: [facility] Address: [address] [place], [place] [address]Performed By: #### 86225-4 #### [facility] CLIA [id number] [address] [place] [address] 39631Veuvvskzl (Bld) [#/Vol]0.69 10*3/uLNormal<0.87[facility] on above:Order Comment: Specimen Type: BLOOD SPECIMEN Ordering Facility: [facility] Address: [address] [place], [place] [address]Performed By: #### 84372-3 #### [facility] CLIA [id number] [address] [place] [address] 25723Dmqpuiccg/100 WBC (Bld)9.9 %NormalUniversity Hospitals Portage Medical Center Comment on above:Order Comment: Specimen Type: BLOOD SPECIMEN Ordering Facility: [facility] Address: [address] [place], [place] [address]Performed By: #### 91734-3 #### [facility] CLIA [id number] [address] [place] [address] 27954Tagwgfewuqg (Bld) [#/Vol]3.90 10*3/uLNormal1.45-7.50[facility] on above:Order Comment: Specimen Type: BLOOD SPECIMEN Ordering Facility: [facility] Address: [address] [place], [place] [address]Performed By: #### 14836-2 #### [facility] CLIA [id number] [address] [place] [address] 47217Oftsetxbklt/100 WBC (Bld)55.7 %NormalUniversity Hospitals Portage Medical CenterComment on above:Order Comment: Specimen Type: BLOOD SPECIMEN Ordering Facility: [facility] Address: [address] [place], [place] [address]Performed By: #### 55901-2 #### [facility] CLIA [id number] [address] [place] [address] 59038Xgxxdjuby RBC (Bld) [#/Vol]10*3/uLNormal<0.01[facility] on above:Order Comment: Specimen Type: BLOOD SPECIMEN Ordering Facility: [facility] Address: [address] [place], [place] [address]Performed By: #### 12961-9 #### [facility] CLIA [id number] [address] [place] [address] 41936Zxwwywxrk RBC/100 WBC (Bld) [Ratio]0.0 /100 WBCNormalCZanesville City Hospital on above:Order Comment: Specimen Type: BLOOD SPECIMEN Ordering Facility: [facility] Address: [address] [place], [place] [address]Performed By: #### 89888-8 #### [facility] CLIA [id number] [address] [place] [address] 60358Qqfuojso mean volume (Bld) [Entitic vol]9.8 fLNormal9.0-12.7 [facility] on above:Order Comment: Specimen Type: BLOOD SPECIMEN Ordering Facility: [facility] Address: [address] [place], [place] [address]Performed By: #### 92951-4 #### [facility] CLIA [id number] [address] [place] [address] 67965Xxeophhum (Bld) [#/Vol]204 10*3/yYAmbldq097-689HpjscplumThe Jewish Hospital on above:Order Comment: Specimen Type: BLOOD SPECIMEN Ordering Facility: [facility] Address: [address] [place], [place] [address]Performed By: #### 31053-0 #### [facility] CLIA [id number] [address] [place] [address] 88135DEK (Bld) [#/Vol]3.85 10*6/uLLow4.20-6.00[facility] on above:Order Comment: Specimen Type: BLOOD SPECIMEN Ordering Facility: [facility] Address: [address] [place], [place] [address]Performed By: #### 38614-1 #### [facility] CLIA [id number] [address] [place] [address] 50065PFR (Bld) [#/Vol]6.99 10*3/uLNormal3.70-11.00[facility] on above:Order Comment: Specimen Type: BLOOD SPECIMEN Ordering Facility: [facility] Address: [address] [place], [place] [address]Performed By: #### 78245-7 #### [facility] CLIA [id number] [address] [place] [address] 67772Okbyctkwjeoey metabolic 2000 panelon 63-10-3447Xyqnezr [Mass/Vol]4.1 g/dLNormal3.9-4.9CZanesville City Hospital on above:Order Comment: Specimen Type: BLOOD SPECIMEN Ordering Facility: [facility] Address: [address] [place], [place] [address]Performed By: #### 2857-1 #### [facility] CLIA [id number] [address] [place] [address] [place] AMERICAALP [Catalytic activity/Vol]84 U/L Gsgwwd09-619DehfqcyutThe Jewish Hospital on above:Order Comment: Specimen Type: BLOOD SPECIMEN Ordering Facility: [facility] Address: [address] [place], [place] [address]Performed By: #### 2857-1 #### [facility] CLIA [id number] [address] [place] [address] [place] AMERICAALT [Catalytic activity/Vol]18 U/L Kubxts13-71DrymyjigeThe Jewish Hospital on above:Order Comment: Specimen Type: BLOOD SPECIMEN Ordering Facility: [facility] Address: [address] [place], [place] [address]Performed By: #### 2857-1 #### [facility] CLIA [id number] [address] [place] [address] [place] AMERICAAnion gap [Moles/Vol]12 mmol/LNormal 8-15[facility] on above:Order Comment: Specimen Type: BLOOD SPECIMEN Ordering Facility: [facility] Address: [address] [place], [place] [address]Performed By: #### 2857-1 #### [facility] CLIA [id number] [address] [place] [address] [place] AMERICAAST [Catalytic activity/Vol]18 U/L Ohfomq14-96SlrpajvcnThe Jewish Hospital on above:Order Comment: Specimen Type: BLOOD SPECIMEN Ordering Facility: [facility] Address: [address] [place], [place] [address]Performed By: #### 2857-1 #### [facility] CLIA [id number] [address] [place] [address] [place] AMERICABilirubin [Mass/Vol]0.5 mg/dLNormal 0.2-1.3CZanesville City Hospital on above:Order Comment: Specimen Type: BLOOD SPECIMEN Ordering Facility: [facility] Address: [address] [place], [place] [address]Performed By: #### 2857-1 #### [facility] CLIA [id number] [address] [place] [address] [place] AMERICACalcium [Mass/Vol]10.1 mg/dLNormal 8.5-10.2CZanesville City Hospital on above:Order Comment: Specimen Type: BLOOD SPECIMEN Order[facility] Facility[facility] Address: [address] [place], [place] [address]Performed By: #### 2857-1 #### [facility] CLIA [id number] [address] [place] [address] [place] AMERICAChloride [Moles/Vol]101 mmol/LNormal 98-107[facility] on above:Order Comment: Specimen Type: BLOOD SPECIMEN Order[facility] Facility: [facility] Address: [address] [place], [place] [address]Performed By: #### 2857-1 #### [facility] CLIA [id number] [address] [place] [address] [place] AMERICACO2 [Moles/Vol]24 mmol/HMyrdrn19-15 [facility] on above:Order Comment: Specimen Type: BLOOD SPECIMEN Ordering Facility: [facility] Address: [address] [place], [place] [address]Performed By: #### 2857-1 #### [facility] CLIA [id number] [address] [place] [address] [place] AMERICACreatinine [Mass/Vol]0.88 mg/dL Normal0.73-1.22[facility] on above:Order Comment: Specimen Type: BLOOD SPECIMEN Ordering Facility: [facility] Address: [address] [place], [place] [address]Performed By: #### 2857-1 #### [facility] CLIA [id number] [address] [place] [address] [place] AMERICACreatinine and Glomerular filtration rate.predicted panel (S/P/Bld)88 mL/min/1.73m???Normal>=60[facility] on above:Order Comment: Specimen Type: BLOOD SPECIMEN Order[facility] Address: [address] [place], [place] [address]Result Comment: Estimated Glomerular Filtration Rate (eGFR) is [...] reflect actual GFR.Performed By: #### 2857-1 #### [facility] CLIA [id number] [address] [place] [address] [place] AMERICAGlucose [Mass/Vol]123 mg/hEOhtk48-88 [facility] on above:Order Comment: Specimen Type: BLOOD SPECIMEN [facility] Address: [address] [place], [place] [address]Result Comment: The [place] Diabetes [employer] (ADA) provides guidance for cutoff [...] Standards of Medical Care in Diabetes 2016, [place] [employer]. Diabetes Care. 2016.39(Suppl 1).Performed By: #### 2857-1 #### [facility] CLIA [id number] [address] [place] [address] [place] AMERICAPotassium [Moles/Vol]4.6 mmol/L Normal3.7-5.1CZanesville City Hospital on above:Order Comment: Specimen Type: BLOOD SPECIMEN Order[facility] Facility: [facility] Address: [address] [place], [place] [address]Performed By: #### 2857-1 #### [facility] CLIA [id number] [address] [place] [address] [place] AMERICAProtein [Mass/Vol]6.5 g/dLNormal 6.3-8.0[facility] on above:Order Comment: Specimen Type: BLOOD SPECIMEN Order[facility] Address: [address] [place], [place] [address]Performed By: #### 2857-1 #### [facility] CLIA [id number] [address] [place] [address] [place] AMERICASodium [Moles/Vol]137 mmol/LNormal 136-144[facility] on above:Order Comment: Specimen Type: BLOOD SPECIMEN Order[facility] Address: [address] [place], [place] [address]Performed By: #### 2857-1 #### [facility] CLIA [id number] [address] [place] [address] [place] AMERICAUrea nitrogen [Mass/Vol]16 mg/dL Normal9-24[facility] on above:Order Comment: Specimen Type: BLOOD SPECIMEN Order[facility] Facility: [facility] Address: [address] [place], [place] [address]Performed By: #### 2857-1 #### [facility] CLIA [id number] [address] [place] [address] [place] AMERICAPSA SerPl-mCncon 16-83-6925Gmjdkgyg specific Ag [Mass/Vol]0.22 ng/mLNormal<2.60[facility] on above:Order Comment: Specimen Type: BLOOD SPECIMEN Order[facility] Address: [address] [place], [place] [address]Oqipwb Comment: Total PSA test methodology used is the Electrochemiluminescence Immunoassay by [employer]. Total PSA values by differing methodologies cannot be interchanged. Performed By: #### 04736-6 #### [facility] CLIA [id number] [address] [place] [address] 22384Jvjkwvxyam Visit Summaryon 91-79-6310Eufxktouej Visit Summary Ambulatory Visit Summary PABLO FELIX [...] mg Tab) ipratropium nasal (ipratropium Nasal 0.06% [place]) metformin (metformin 1000 mg oral tablet) metoprolol [...] Anthony SCRUGGS MD Where: [facility] [address] [facility] [place] [address]- You Need to Schedule the Following Appointments Follow Up with Anthony SCRUGGS MD, URL When: Comments: 6 mos w/ PSA and Lupron Where: [facility] [address], [facility] [place] [address] [phone] Medications What How Much When Instructions Unchanged [...] concerns Unchanged ipratropium nasal (ipratropium Nasal 0.06% [place]) Contact prescribing physician if questions or concerns [...] If the prostate cancer (more content not included)...[facility] HospitalU[facility] Office/Clinic Noteon 04-81-0949Kjaclni Office/Clinic NoteUrology Office/Clinic Note Chief Complaint 6 [...] [facility] [address] , [place] [address] [phone] Additional Instructions: 6 mos w/ PSA and [...] 1 tab(s), Oral, Daily ipratropium Nasal 0.06% [place] metformin 1000 mg oral tablet, Oral, BID [...] Comments influenza virus vacc (more content not included)...[facility] HospitalComment on above:Result Comment: Electronically Signed By: SCRUGGS Anthony JAMES\.br\Date and Time Signed: 10/07/24 10:00 EDT\.br\Electronically Co- Signed By: Jeanine Crandall\.br\Date and Time Co-Signed: 10/07/24 09:59 EDTCNOVSPon 39-66-1922QGKNZIImcaq (SP) Office ([place]) JERICAPABLO An ([id number]) 1945 M Date Time Provider Department 08/08/24 9:30 AM CHRISTO HOWARD During your visit today, we recorded the following information about you: Temperature Pulse Respiration Blood pressure 97.9 degrees 57/minute 16/minute 149/56 Weight Height 95 kg 1.676 m Christo Howard APRN.DEVULCANIZER CHARGER 08/08/2024 12:09 PM Signed PATIENT NAME: Pablo Felix DATE: 08/08/2024 PRIMARY CARE PHYSICIAN: Dr. Jamar Fall OTHER PHYSICIANS: Dr. Anthony Scruggs, Dr. Khan, [facility] Cardiology Portions of this encounter [...] mg 24 hr tablet Take by mouth. 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 Left base margin positive for neoplasm. Seminal vesicles with no diagnostic abnormality. 2 resected lymph nodes negative for neoplasm. LABS: Hemoglobin (g/dL) Date Value 08/01/2024 12.2 05/08/2018 12.8 Hematoc (more content not included)...NormalUniversity Hospitals Portage Medical CenterBasophils Auto (Bld) [#/Vol]on 49-92-4793Jphoqvcan (Bld) [#/Vol]Automated basophil count <0.11[facility]ittman HospitalBasophils/100 WBC Auto (Bld)on 08-01-2024 Basophils/100 WBC (Bld)Automated basophil %[facility] Blood manual differential comment interpretation narrativeon 19-33-2138Vhyvvf differential comment [place] (Bld) [Interp]Blood manual differential comment interpretation narrativeWadsworth-Rittman HospitalCB W Auto Differential panel (Bld)on 45-30-2257Djdrwyywh (Bld) [#/Vol]0.03 10*3/uLNIDayton VA Medical Center Basophils/100 WBC (Bld)0.5 %[facility] HospitalDifferential cell count method Nom (Bld)AutoCleveland ClinicEosinophils (Bld) [#/Vol]0.5 10*3/uLHighNINFMarietta Memorial HospitalEosinophils/100 WBC (Bld)8.5 %[facility] HospitalErythrocyte distribution width (RBC) [Ratio]12.7 %11.5 - 15.0 %[facility] Memorial HospitalHematocrit (Bld) [Volume fraction]35.7 %Low39.0 - 51.0 %[facility] Memorial HospitalHemoglobin (Bld) [Mass/Vol]12.2 g/dLLow13.0 - 17.0 g/dLMarietta Memorial HospitalImmature granulocytes (Bld) [#/Vol]0.04 10*3/uLNINFMarietta Memorial HospitalImmature granulocytes/100 WBC (Bld)0.7 %[facility] HospitalInterpretation and review of laboratory resultsAbnormalCMercy Health Lorain Hospital Lymphocytes (Bld) [#/Vol]1.55 10*3/uLMarietta Memorial HospitalLymphocytes/100 WBC (Bld) 26.5 %[facility] ShawH (RBC) [Entitic mass]32.4 pg26.0 - 34.0 pgClevelGlencoe Regional Health ServicesHC (RBC) [Mass/Vol]34.2 g/dL30.5 - 36.0 g/dLSelect Medical Cleveland Clinic Rehabilitation Hospital, Edwin ShawV (RBC) [Entitic vol]94.9 fL80.0 - 100.0 fLCMercy Health Lorain HospitalMonocytes (Bld) [#/Vol]0.55 10*3/uLNINFMarietta Memorial HospitalMonocytes/100 WBC (Bld)9.4 %[facility] Neutrophils (Bld) [#/Vol]3.19 10*3/[facility]ner Medical CenterNeutrophils/100 WBC (Bld) 54.4 %[facility] Memorial HospitalNucleated RBC (Bld) [#/Vol]NINFCleveland Owatonna HospitalNucleated RBC/100 WBC (Bld) [Ratio]0 %/100 WBCMarietta Memorial HospitalPlatelet mean volume (Bld) [Entitic vol]9.4 fL9.0 - 12.7 fLCMercy Health Lorain HospitalPlatelets (Bld) [#/Vol]177 10*3/uLMarietta Memorial HospitalRBC (Bld) [#/Vol]3.76 10*6/uLLow4.20 - 6.00 m/[facility]ner Medical CenterWBC (Bld) [#/Vol]5.86 10*3/uLLouis Stokes Cleveland VA Medical Center ClinicBasophils (Bld) [#/Vol]0.03 10*3/uLNormal<0.11CZanesville City Hospital on above: Order Comment: Specimen Type: BLOOD SPECIMEN [facility] Facility[facility] Address: [address] [place], [place] [address]Performed By: #### 2857-1 #### [facility] CLIA [id number] [address] [place] [address] [place] AMERICABasophils/100 WBC (Bld)0.5 %Normal [facility] on above:Order Comment: Specimen Type: BLOOD SPECIMEN Order[facility] Address: [address] [place], [place] [address]Performed By: #### 2857-1 #### [facility] CLIA [id number] [address] [place] [address] [place] AMERICADifferential cell count method Nom (Bld)AutoNormalCZanesville City Hospital on above:Order Comment: Specimen Type: BLOOD SPECIMEN [facility] Address: [address] [place], [place] [address]Performed By: #### 2857-1 #### [facility] CLIA [id number] [address] [place] [address] [place] AMERICAEosinophils (Bld) [#/Vol]0.50 10*3/uLHigh<0.46[facility] on above:Order Comment: Specimen Type: BLOOD SPECIMEN Ordering Facility: [facility] Address: [address] [place], [place] [address]Performed By: #### 2857-1 #### [facility] CLIA [id number] [address] [place] [address] [place] AMERICAEosinophils/100 WBC (Bld)8.5 %Normal [facility] on above:Order Comment: Specimen Type: BLOOD SPECIMEN Ordering Facility: [facility] Address: [address] [place], [place] [address]Performed By: #### 2857-1 #### [facility] CLIA [id number] [address] [place] [address] [place] AMERICAErythrocyte distribution width (RBC) [Ratio]12.7 %Audqsu41.5-15.0[facility] on above:Order Comment: Specimen Type: BLOOD SPECIMEN Ordering Facility: [facility] Address: [address] [address] [place], [place] [address]Performed By: #### 2857-1 #### [facility] CLIA [id number] [address] [place] [address] [place] OF AMERICAHematocrit (Bld) [Volume fraction] 35.7 %Low39.0-51.0[facility] on above:Order Comment: Specimen Type: BLOOD SPECIMEN Ordering Facility: [facility] Address: [address] [place], [place] [address]Performed By: #### 2857-1 #### [facility] CLIA [id number] [address] [place] [address] [place] AMERICAHemoglobin (Bld) [Mass/Vol]12.2 g/dL Low13.0-17.0[facility] on above:Order Comment: Specimen Type: BLOOD SPECIMEN Ordering Facility: [facility] Address: [address] [place], [place] [address]Performed By: #### 2857-1 #### [facility] CLIA [id number] [address] [place] [address] [place] AMERICAImmature granulocytes (Bld) [#/Vol] 0.04 10*3/uLNormal<0.10[facility] on above:Order Comment: Specimen Type: BLOOD SPECIMEN Ordering Facility: [facility] Address: [address] [place], [place] [address]Performed By: #### 2857-1 #### [facility] CLIA [id number] [address] [place] [address] [place] AMERICAImmature granulocytes/100 WBC (Bld) 0.7 %NormalThe [facility] on above:Order Comment: Specimen Type: BLOOD SPECIMEN Ordering Facility: [facility] Address: [address] [place], [place] [address]Performed By: #### 2857-1 #### [facility] CLIA [id number] [address] [place] [address] [place] AMERICALymphocytes (Bld) [#/Vol]1.55 10*3/uLNormal1.00-4.00[facility] on above:Order Comment: Specimen Type: BLOOD SPECIMEN Ordering Facility: [facility] Address: [address] [place], [place] [address]Performed By: #### 2857-1 #### [facility] CLIA [id number] [address] [place] [address] [place] AMERICALymphocytes/100 WBC (Bld)26.5 % NormalThe [facility] Hospital on above:Order Comment: Specimen Type: BLOOD SPECIMEN Ordering Facility: [facility] Address: [address] [place], [place] [address]Performed By: #### 2857-1 #### [facility] CLIA [id number] [address] [place] [address] (RBC) [Entitic mass]32.4 pg Ceevqu45.0-34.0[facility] on above:Order Comment: Specimen Type: BLOOD SPECIMEN Ordering Facility: [facility] Address: [address] [place], [place] [address]Performed By: #### 2857-1 #### [facility] CLIA [id number] [address] [place] [address] (RBC) [Mass/Vol]34.2 g/dLNormal 30.5-36.0[facility] on above:Order Comment: Specimen Type: BLOOD SPECIMEN Ordering Facility: [facility] Address: [address] [place], [place] [address]Performed By: #### 2857-1 #### [facility] CLIA [id number] [address] [place], [place] [address] [place] OF AMERICAMCV (RBC) [Entitic vol]94.9 fLNormal 80.0-100.0[facility] on above:Order Comment: Specimen Type: BLOOD SPECIMEN Ordering Facility: [facility] Address: [address] [place], [place] [address]Performed By: #### 2857-1 #### [facility] CLIA [id number] [address] [place] [address] [place] AMERICAMonocytes (Bld) [#/Vol]0.55 10*3/uL Normal<0.87[facility] on above:Order Comment: Specimen Type: BLOOD SPECIMEN Ordering Facility: [facility] Address: [address] [place], [place] [address]Performed By: #### 2857-1 #### [facility] CLIA [id number] [address] [place] [address] [place] AMERICAMonocytes/100 WBC (Bld)9.4 %Normal [facility] on above:Order Comment: Specimen Type: BLOOD SPECIMEN Ordering Facility: [facility] Address: [address] [place], [place] [address]Performed By: #### 2857-1 #### [facility] CLIA [id number] [address] [place] [address] [place] AMERICANeutrophils (Bld) [#/Vol]3.19 10*3/uLNormal1.45-7.50[facility] on above:Order Comment: Specimen Type: BLOOD SPECIMEN Ordering Facility: [facility] Address: [address] [place], [place] [address]Performed By: #### 2857-1 #### [facility] CLIA [id number] [address] [place] [address] [place] AMERICANeutrophils/100 WBC (Bld)54.4 % NormalThe [facility] on above:Order Comment: Specimen Type: BLOOD SPECIMEN Ordering Facility: [facility] Address: [address] [place], [place] [address]Performed By: #### 2857-1 #### [facility] CLIA [id number] [address] [place] [address] [place] AMERICANucleated RBC (Bld) [#/Vol]10*3/uL Normal<0.01[facility] on above:Order Comment: Specimen Type: BLOOD SPECIMEN Ordering Facility: [facility] Address: [address] [place], [place] [address]Performed By: #### 2857-1 #### [facility] CLIA [id number] [address] [place] [address] [place] AMERICANucleated RBC/100 WBC (Bld) [Ratio] 0.0 /100 WBCNormalCZanesville City Hospital on above:Order Comment: Specimen Type: BLOOD SPECIMEN Ordering Facility: [facility] Address: [address] [place], [place] [address]Performed By: #### 2857-1 #### [facility] CLIA [id number] [address] [place] [address] [place] AMERICAPlatelet mean volume (Bld) [Entitic vol]9.4 fLNormal9.0-12.7CZanesville City Hospital on above:Order Comment: Specimen Type: BLOOD SPECIMEN Ordering Facility: [facility] Address: [address] [place], [place] [address]Performed By: #### 2857-1 #### [facility] CLIA [id number] [address] [place] [address] [place] AMERICAPlatelets (Bld) [#/Vol]177 10*3/uL Igvzwt428-597DoxgmtdjaThe [facility] on above:Order Comment: Specimen Type: BLOOD SPECIMEN Ordering Facility: [facility] Address: [address] [place], [place] [address]Performed By: #### 2857-1 #### [facility] CLIA [id number] [address] [place] [address] [place] AMERICARBC (Bld) [#/Vol]3.76 10*6/uLLow 4.20-6.00[facility] on above:Order Comment: Specimen Type: BLOOD SPECIMEN Ordering Facility: [facility] Address: [address] [place], [place] [address]Performed By: #### 2857-1 #### [facility] CLIA [id number] [address] [place] [address] [place] AMERICAWBC (Bld) [#/Vol]5.86 10*3/uLNormal 3.70-11.00[facility] on above:Order Comment: Specimen Type: BLOOD SPECIMEN Ordering Facility: [facility] Address: [address] [place], [place] [address]Performed By: #### 2857-1 #### [facility] CLIA [id number] [address] [place] [address] OF [facility]PITALComprehensive metabolic 2000 panel Ordered By: Liza Lilly on 97-43-6930Yvspqnn [Mass/Vol]4.2 g/dL3.9 - 4.9 g/dL [facility] ClinicALP [Catalytic activity/Vol]75 U/L38 - 113 U/LCleveland Clinic ALT [Catalytic activity/Vol]17 U/L10 - 54 U/LCleveland ClinicAnion gap [Moles/Vol]11 mmol/L8 - 15 mmol/LCleveland ClinicAST [Catalytic activity/Vol]17 U/L14 - 40 U/LCleveland ClinicBilirubin [Mass/Vol]0.6 mg/dL0.2 - 1.3 mg/dL [facility] HospitalCalcium [Mass/Vol]10.3 mg/dLHigh8.5 - 10.2 mg/dLMarietta Memorial Hospital Chloride [Moles/Vol]100 mmol/L98 - 107 mmol/LCleveland ClinicCO2 [Moles/Vol]26 mmol/L22 - 30 mmol/LCleveland ClinicCreatinine [Mass/Vol]0.81 mg/dL0.73 - 1.22 mg/dLMarietta Memorial HospitalGFR/1.73 sq M.predicted among non-blacks MDRD (S/P/Bld) [Vol [...] eGFRmay not accurately reflect actual GFR.Glucose [Mass/Vol]119 mg/zTGhau98 - 99 mg/dLKettering Memorial Hospital on above:The [place] Diabetes Association (ADA) provides guidance for cutoff [...] Standards of Medical Care in Diabetes 2016, [place] [employer] Association. Diabetes Care. 2016.39(Suppl 1). Interpretation and review of laboratory resultsAbnormalCleveland ClinicPotassium [Moles/Vol]4.8 mmol/L3.7 - 5.1 mmol/LCregency hospital cleveland west ClinicProtein [Mass/Vol]6.3 g/dL 6.3 - 8.0 g/dLMagruder Hospitalodium [Moles/Vol]137 mmol/L136 - 144 mmol/L [facility] HospitalUrea nitrogen [Mass/Vol]14 mg/dL9 - 24 mg/dLPromedica Bay Park HospitalComprehensive metabolic 2000 panelon 02-01-6657Gzqbrhm [Mass/Vol]4.2 g/dLNormal3.9-4.9CZanesville City Hospital on above:Order Comment: Specimen Type: BLOOD SPECIMEN Order[facility] Facility[facility] Address: [address] [place], [place] [address]Performed By: #### 2857-1 #### [facility] CLIA [id number] [address] [place] [address] [place] AMERICAALP [Catalytic activity/Vol]75 U/L Roftvm22-055KfmbtsamxThe [facility] on above:Order Comment: Specimen Type: BLOOD SPECIMEN Ordering Facility: [facility] Address: [address] [place], [place] [address]Performed By: #### 2857-1 #### [facility] CLIA [id number] [address] [place], [place] [address] [place] OF AMERICAALT [Catalytic activity/Vol]17 U/L Azltmj12-52FovjkuutyThe [facility] Hospital on above:Order Comment: Specimen Type: BLOOD SPECIMEN Ordering Facility: [facility] Address: [address] [place], [place] [address]Performed By: #### 2857-1 #### [facility] CLIA [id number] [address] [place] [address] [place] AMERICAAnion gap [Moles/Vol]11 mmol/LNormal 8-15[facility] on above:Order Comment: Specimen Type: BLOOD SPECIMEN Ordering Facility: [facility] Address: [address] [place], [place] [address]Performed By: #### 2857-1 #### [facility] CLIA [id number] [address] [place] [address] [place] AMERICAAST [Catalytic activity/Vol]17 U/L Uvcrjc27-90SnpdalkipThe [facility] Hospital on above:Order Comment: Specimen Type: BLOOD SPECIMEN Ordering Facility: [facility] Address: [address] [place], [place] [address]Performed By: #### 2857-1 #### [facility] CLIA [id number] [address] [place] [address] [place] AMERICABilirubin [Mass/Vol]0.6 mg/dLNormal 0.2-1.3CZanesville City Hospital on above:Order Comment: Specimen Type: BLOOD SPECIMEN Ordering Facility: [facility] Address: [address] [place], [place] [address]Performed By: #### 2857-1 #### [facility] CLIA [id number] [address] [place] [address] [place] AMERICACalcium [Mass/Vol]10.3 mg/dLHigh 8.5-10.2CZanesville City Hospital on above:Order Comment: Specimen Type: BLOOD SPECIMEN Ordering Facility: [facility] Address: [address] [place], [place] [address]Performed By: #### 2857-1 #### [facility] CLIA [id number] [address] [place] [address] [place] AMERICAChloride [Moles/Vol]100 mmol/LNormal 98-107[facility] on above:Order Comment: Specimen Type: BLOOD SPECIMEN Order[facility] Facility: [facility] Address: [address] [place], [place] [address]Performed By: #### 2857-1 #### [facility] CLIA [id number] [address] [place] [address] [place] AMERICACO2 [Moles/Vol]26 mmol/FBybbyu05-51 [facility] on above:Order Comment: Specimen Type: BLOOD SPECIMEN Ordering Facility: [facility] Address: [address] [place], [place] [address]Performed By: #### 2857-1 #### [facility] CLIA [id number] [address] [place] [address] [place] AMERICACreatinine [Mass/Vol]0.81 mg/dL Normal0.73-1.22[facility] on above:Order Comment: Specimen Type: BLOOD SPECIMEN Ordering Facility: [facility] Address: [address] [place], [place] [address]Performed By: #### 2857-1 #### [facility] CLIA [id number] [address] [place] [address] [place] AMERICACreatinine and Glomerular filtration rate.predicted panel (S/P/Bld)90 mL/min/1.73m???Normal>=60[facility] on above:Order Comment: Specimen Type: BLOOD SPECIMEN Order[facility] Address: [address] [place], [place] [address]Result Comment: Estimated Glomerular Filtration Rate (eGFR) is [...] reflect actual GFR.Performed By: #### 2857-1 #### [facility] CLIA [id number] [address] [place] [address] [place] AMERICAGlucose [Mass/Vol]119 mg/vJJpml13-02 [facility] on above:Order Comment: Specimen Type: BLOOD SPECIMEN Ordering Facility: [facility] Address: [address] [place], [place] [address]Result Comment: The [place] Diabetes Association (ADA) provides guidance for cutoff [...] Standards of Medical Care in Diabetes 2016, [place] Diabetes Association. Diabetes Care. 2016.39(Suppl 1).Performed By: #### 2857-1 #### [facility] CLIA [id number] [address] [place] [address] [place] AMERICAPotassium [Moles/Vol]4.8 mmol/L Normal3.7-5.1CZanesville City Hospital on above:Order Comment: Specimen Type: BLOOD SPECIMEN Order[facility] Facility[facility] Address: [address] [place], [place] [address]Performed By: #### 2857-1 #### [facility] CLIA [id number] [address] [place] [address] [place] AMERICAProtein [Mass/Vol]6.3 g/dLNormal 6.3-8.0[facility] on above:Order Comment: Specimen Type: BLOOD SPECIMEN [facility] Address: [address] [place], [place] [address]Performed By: #### 2857-1 #### [facility] CLIA [id number] [address] [place] [address] [place] AMERICASodium [Moles/Vol]137 mmol/LNormal 136-144[facility] on above:Order Comment: Specimen Type: BLOOD SPECIMEN [facility] Address: [address] [place], [place] [address]Performed By: #### 2857-1 #### [facility] CLIA [id number] [address] [place] [address] [place] AMERICAUrea nitrogen [Mass/Vol]14 mg/dL Normal9-24[facility] on above:Order Comment: Specimen Type: BLOOD SPECIMEN Order[facility] Facility[facility] Address: [address] [place], [place] [address]Performed By: #### 2857-1 #### [facility] CLIA [id number] [address] [place] [address] [place] AMERICAEosinophils/100 WBC Auto (Bld)on 60-29-1913Ljegmyvrxkz/100 WBC (Bld)Automated eosinophil %[facility]-Rittman HospitalErythrocyte distribution width Auto (RBC) [Ratio]on 08-01-2024 Erythrocyte distribution width (RBC) [Ratio]Erythrocyte distribution width [Ratio] by Automated count11.5-15.0[facility]ittman HospitalHematocrit Auto (Bld) [Volume fraction]on 99-68-9651Bclfqjcfxp (Bld) [Volume fraction] Hematocrit [Volume Fraction] of Blood by Automated ogdzsGsy67.0-51.0[facility] HospitalHemoglobin [Mass/volume] in Bloodon 07-91-2364Ttxdwmfbvm (Bld) [Mass/Vol]Hemoglobin [Mass/volume] in BmnxmGtw29.0-17.0[facility] HospitalLaboratory - Chemistry and Chemistry - challengeon 08-01-2024 Albumin [Mass/Vol]4.2 g/dL3.9-4.9[facility] HospitalALP [Catalytic activity/Vol]75 U/C48-154PndzzmntrWadsworth-Rittman HospitalALT [Catalytic activity/Vol]17 U/K37-97YjylhkfbiWadsworth-Rittman HospitalAST [Catalytic activity/Vol]17 U/L23-61WbrihtuuwWadsworth-Rittman HospitalBilirubin [Mass/Vol]0.6 mg/dL0.2-1.3FCleveland Clinic Mercy HospitalCalcium [Mass/Vol]10.3 mg/dLHigh 8.5-10.2FCleveland Clinic Mercy HospitalChloride [Moles/Vol]100 mmol/L98-107 [facility] HospitalCO2 [Moles/Vol]26 mmol/B60-54FffkcaldqWadsworth-Rittman HospitalCreatinine [Mass/Vol]0.81 mg/dL0.73-1.22[facility] HospitalGlucose [Mass/Vol]119 mg/fCInhz02-04AuqoauhjxWadsworth-Rittman HospitalComment on above:The [place] Diabetes Association (ADA) provides guidance for cutoff [...] diabetes.Reference: Standardsof Medical Care in Diabetes 2016, [place] Diabetes Association. Diabetes Care. 2016.39(Suppl 1).Potassium [Moles/Vol]4.8 mmol/L 3.7-5.1FKettering Health Daytonodium [Moles/Vol]137 mmol/C411-105 [facility]itt[facility] HospitalUrea nitrogen [Mass/Vol]14 mg/dL9-24[facility] HospitalLaboratory - Hematology and Cell countson 08-01-2024 Eosinophils (Bld) [#/Vol]0.50 10*3/uLHigh<0.46[facility] Immature granulocytes (Bld) [#/Vol]0.04 10*3/uL<0.10[facility]-Rittman HospitalImmature granulocytes/100 WBC (Bld)0.7 %[facility] Leukocytes [#/volume] corrected for nucleated erythrocytes in Blood by Automated counon 31-34-0237FGK corrected for nucl RBC Auto (Bld) [#/Vol]Leukocytes [#/volume] corrected for nucleated erythrocytes in Blood by Automated coun 3.70-11.00[facility]-Rittman HospitalLymphocytes Auto (Bld) [#/Vol]on 99-18-6123Bnufjwbdyar (Bld) [#/Vol]Lymphocytes [#/volume] in Blood by Automated count1.00-4.00[facility]-Rittman HospitalLymphocytes/100 WBC Auto (Bld)on 35-26-7077Himwkxogaun/100 WBC (Bld)Lymphocytes/100 leukocytes in Blood by Automated countFirelands Regional Medical Center South CampusH Auto (RBC) [Entitic mass]on 73-81-2238ONI (RBC) [Entitic mass]MCH [Entitic mass] by Automated count26.0-34.0 [facility]ittman HospitalMCHC Auto (RBC) [Mass/Vol]on 78-50-1539FTWM (RBC) [Mass/Vol]MCHC [Mass/volume] by Automated count30.5-36.0[facility]-Rittman HospitalMCV Auto (RBC) [Entitic vol]on 70-20-2601RNY (RBC) [Entitic vol] MCV [Entitic volume] by Automated count80.0-100.0[facility]-Rittman HospitalMonocytes Auto (Bld) [#/Vol]on 68-09-4477Tthpaapts (Bld) [#/Vol]Automated blood monocyte count<0.87W[facility]-Rittman HospitalMonocytes/100 WBC Auto (Bld)on 49-64-3424Ppoumevzu/100 WBC (Bld)Automated monocyte %[facility]ittman HospitalNeutrophils Auto (Bld) [#/Vol]on 54-39-2952Qqrlscxsqyp (Bld) [#/Vol]Neutrophils [#/volume] in Blood by Automated count1.45-7.50[facility]-Rittman HospitalNeutrophils/100 WBC Auto (Bld)on 08-01-2024 Neutrophils/100 WBC (Bld)Automated neutrophil %[facility] No Panel Informationon 99-70-3457Fzulqyrcs GFR (CKD-EPI)90 mL/min/1.73m???>=60 [facility]ittman HospitalComment on above:Estimated Glomerular Filtration Rate (eGFR) [...] accurately reflect actual GFR.Prostate Specific Antigen0.19 ng/mL<2.60 [facility]-Rittman HospitalComment on above:Total PSA test methodology used is the Electrochemiluminescence Immunoassay by [employer]. Total PSA values by differing methodologies cannot be interchanged.Nucleated RBC Auto (Bld) [#/Vol]on 70-07-9252Fqgliibtg RBC (Bld) [#/Vol]Nucleated erythrocytes [#/volume] in Blood by Automated count<0.01[facility] Nucleated erythrocytes [Presence] in Blood by Automated counton 08-01-2024 Nucleated RBC Auto Ql (Bld)Nucleated erythrocytes [Presence] in Blood by Automated countWadsworth-Rittman HospitalPROSTATE-SPECIFIC ANTIGEN DIAGNOSTICon 49-30-1842Xbfvsesd specific Ag [Mass/Vol]0.19 ng/mLNINF - 2.60 ng/mLCregency hospital cleveland west ClinicComment on above:Total PSA test methodology used is the Electrochemiluminescence Immunoassay by [employer]. Total PSA values by differing methodologies cannot be interchanged.PSA SerPl-mCncon 08-01-2024 Prostate specific Ag [Mass/Vol]0.19 ng/mLNormal<2.60[facility] Comment on above:Order Comment: Specimen Type: BLOOD SPECIMEN [facility] Address: [address] [place], [place] [address]Result Comment: Total PSA test methodology used is the Electrochemiluminescence Immunoassay by [employer]. Total PSA values by differing methodologies cannot be interchanged. Performed By: #### 80576-3 #### [facility] CLIA [id number] [address] [place] [address]Ovrdcbmq mean volume Auto (Bld) [Entitic vol]on 08-01-2024 Platelet mean volume (Bld) [Entitic vol]Platelet mean volume [Entitic volume] in Blood by Automated count9.0-12.7FCleveland Clinic Mercy HospitalPlatelets Auto (Bld) [#/Vol]on 60-36-8200Uxbcvkens (Bld) [#/Vol]Platelets [#/volume] in Blood by Automated ehnud261-774YvgqetthjWadsworth-Rittman HospitalProstate specific Ag [Mass/Vol]on 59-09-6090Rapxbcocoqzwdd and review of laboratory resultsNormal [facility] ClinicProtein [Mass/volume] in Serum or Plasmaon 11-62-4714Yrtowcb [Mass/Vol]Protein [Mass/volume] in Serum or Plasma6.3-8.0 [facility]-Rittman HospitalRBC Auto (Bld) [#/Vol]on 01-41-3947CXR (Bld) [#/Vol]Erythrocytes [#/volume] in Blood by Automated countLow4.20-6.00[facility] - Youngstownerum or plasma anion gap determinationon 68-91-0479Xwbag gap [Moles/Vol]Serum or plasma anion gap determination8-15W[facility]sworth-Rittman HospitalCNPNon 03-61-0561TYHKKqvddiley (LABSAN) PABLO FELIX ([id number]) 1945 M Date Time Provider Department 07/25/24 [...] Date Reviewed: 02/02/2024 Reviewed by: Lynne Rajan APRN.DEVULCANIZER CHARGER - Fully Assessed Reason for Visit: Lab Orders [1688] Primary Visit Diagnosis:Malignant neoplasm of prostate (HCC) [C61] Order(s):COMPLETE BLOOD COUNT AND DIFFERENTIAL [SQCBCDIF] Order #: [id number] FUTURE COMPREHENSIVE METABOLIC PANEL [SQCMP] Order #: [id number] FUTURE PROSTATE-SPECIFIC ANTIGEN DIAGNOSTIC [SQPSA] Order #: [id number] FUTURE Prescriptions as of 10/16/2024 - enzalutamide (XTANDI) 40 mg tablet Take 4 tablets (160 mg) by mouth once daily. - Calcium Citrate-Vitamin D3 200 mg-6.25 mcg (250 unit) tab Take 2 tablets by mouth once daily. - metoprolol succinate ER (TOPROL XL) 25 mg 24 hr tablet Take by mouth. - Jvluyubummvpg-Oymmxkjl-Rzfqkp (MULTIVITAMIN 50 PLUS) tab Take 1 tablet [...] 08/06/2014 Encounter Status:Closed by JOSEMANUEL BLANCHARD on 10/16/24[facility] HospitalAmbulatory Visit Summaryon 30-48-7492Pxlydrxmdf Visit SummaryAmbulatory Visit Summary PABLO FELIX :1945 [...] mg Tab) ipratropium nasal (ipratropium Nasal 0.06% [place]) metformin (metformin 1000 mg oral tablet) metoprolol [...] Anthony SCRUGGS MD Where: [facility] [address] [place] [address]- You Need to Schedule the Following Appointments Follow Up with Anthony SCRUGGS MD, URL When: Where: [address] [place] [address]- Medications What How Much When Instructions Unchanged [...] concerns Unchanged ipratropium nasal (ipratropium Nasal 0.06% [place]) Contact prescribing physician if questions or concerns [...] urine. ? 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 Cerulean 9 (5+4), pT2b, N0, Mo. Last Lupron administered 04/2022. Taking Xtandi 160mg qd and Xgeva q3mos. Last seen by [facility] oncology 02/02/24. Plan at that [...] Information KAEL JAMES, Anthony Lee, URL [address] [place] [address]- Additional Instructions: 6 mos w/ PSA and [...] glimepiride, Oral, Daily hydrochlorothiazide-lisinopril (more content not included)...[facility]rington HospitalComment on above:Result Comment: Electronically Signed By: Anthony SCRUGGS MD\.br\Date and Time Signed: 04/19/24 08:47 EDT\.br\Electronically Co-Signed By: Olamide Ureña.br\Date and Time Co-Signed: 04/19/2408:45 EDTBasophils Auto (Bld) [#/Vol]on 61-06-4016Izhqpnmau (Bld) [#/Vol]0.04 10*3/uL <0.11[facility]-Rittman HospitalBasophils/100 WBC Auto (Bld)on 01-25-2024 Basophils/100 WBC (Bld)0.6 %[facility]itt[facility] HospitalBlood manual differential comment interpretation narrativeon [id number] differential comment [place] (Bld) [Interp]AutoWadsworth-Rittman HospitalEosinophils/100 WBC Auto (Bld)on 68-30-2555Inkuvpvpzhq/100 WBC (Bld)5.9 %[facility] HospitalErythrocyte distribution width Auto (RBC) [Ratio]on 01-25-2024 Erythrocyte distribution width (RBC) [Ratio]12.7 %11.5-15.0[facility] HospitalHematocrit Auto (Bld) [Volume fraction]on 43-50-6018Lvbmdmopki (Bld) [Volume fraction]34.6 %Low39.0-51.0[facility] Hemoglobin [Mass/volume] in Bloodon 67-55-7831Vrpzbjuggn (Bld) [Mass/Vol]11.8 g/dLLow13.0-17.0[facility] HospitalLaboratory - Chemistry and Chemistry - challengeon 97-61-5412Urcocnp [Mass/Vol]4.0 g/dL3.9-4.9[facility] HospitalALP [Catalytic activity/Vol]74 U/W86-826DurlnuxxkWadsworth-Rittman HospitalALT [Catalytic activity/Vol]18 U/M30-89FzphxfanoWadsworth-Rittman HospitalAST [Catalytic activity/Vol]19 U/Q57-98FpyacrubvWadsworth-Rittman HospitalBilirubin [Mass/Vol]0.7 mg/dL0.2-1.3[facility] Calcium [Mass/Vol]9.9 mg/dL8.5-10.2FC[facility] Mer[facility] HospitalChloride [Moles/Vol]103 mmol/R77-200FqcnbmzjlWadsworth-Rittman HospitalCO2 [Moles/Vol]25 mmol/U30-28PfqdujdgxWadsworth-Rittman HospitalCreatinine [Mass/Vol]0.79 mg/dL 0.73-1.22[facility] HospitalGlucose [Mass/Vol]112 mg/oRMcmx68-36 [facility] HospitalComment on above:The [place] Diabetes Association (ADA) provides guidance for cutoff [...] diabetes.Reference: [employer] in Diabetes 2016, [place] [employer]. Diabetes Care. 2016.39(Suppl 1). Potassium [Moles/Vol]5.2 mmol/LHigh3.7-5.1FC[facility] Sodium [Moles/Vol]137 mmol/K444-045AidwmdldbWadsworth-Rittman HospitalUrea nitrogen [Mass/Vol]15 mg/dL9-24[facility] HospitalLaboratory - Hematology and Cell countson 02-98-2024Tgvukjolnsg (Bld) [#/Vol]0.40 10*3/uL <0.46[facility] HospitalImmature granulocytes (Bld) [#/Vol]0.07 10*3/uL<0.10[facility] HospitalImmature granulocytes/100 WBC (Bld) 1.0 %[facility] HospitalLeukocytes [#/volume] corrected for nucleated erythrocytes in Blood by Automated counon 17-66-2917RWA corrected for nucl RBC Auto (Bld) [#/Vol]6.80 k/uL3.70-11.00[facility] Lymphocytes Auto (Bld) [#/Vol]on 37-53-0791Idhghdgrhxc (Bld) [#/Vol]2.16 10*3/uL 1.00-4.00[facility] HospitalLymphocytes/100 WBC Auto (Bld)on 27-00-9573Pxfsdrlhjgw/100 WBC (Bld)31.8 %[facility]H Auto (RBC) [Entitic mass]on 07-86-8818OZQ (RBC) [Entitic mass]32.2 pg26.0-34.0 [facility] HospitalMCHC Auto (RBC) [Mass/Vol]on 86-06-6032XVPC (RBC) [Mass/Vol]34.1 g/dL30.5-36.0[facility] HospitalMCV Auto (RBC) [Entitic vol]on 61-42-8062LJR (RBC) [Entitic vol]94.3 fL80.0-100.0 [facility] HospitalMonocytes Auto (Bld) [#/Vol]on 01-25-2024 Monocytes (Bld) [#/Vol]0.60 10*3/uL<0.87[facility] Monocytes/100 WBC Auto (Bld)on 19-99-2548Qbjdgwfdx/100 WBC (Bld)8.8 %[facility] HospitalNeutrophils Auto (Bld) [#/Vol]on 83-09-8182Ciccygwfbpl (Bld) [#/Vol]3.53 10*3/uL1.45-7.50[facility] Neutrophils/100 WBC Auto (Bld)on 79-18-4840Dksftfmcxhn/100 WBC (Bld)51.9 % [facility] HospitalNo Panel Informationon 18-29-9156Yimstelry GFR (CKD-EPI)91 mL/min/1.73m???>=60[facility] HospitalComment on above:Estimated Glomerular Filtration Rate (eGFR) [...] not accurately reflect actual GFR.Prostate Specific Antigen0.15 ng/mL<2.60[facility] HospitalComment on above:Total PSA test methodology used is the Electrochemiluminescence Immunoassay by [employer]. Total PSA values by differing methodologies cannot be interchanged. Nucleated RBC Auto (Bld) [#/Vol]on 50-64-2898Kyixskiat RBC (Bld) [#/Vol]10*3/uL <0.01[facility] HospitalNucleated erythrocytes [Presence] in Blood by Automated counton 03-45-9892Ctxmecyzj RBC Auto Ql (Bld)0.0 /100{WBC} [facility] HospitalPlatelet mean volume Auto (Bld) [Entitic vol]on 58-31-9590Tcpophsl mean volume (Bld) [Entitic vol]10.3 fL9.0-12.7FCleveland Clinic Mercy HospitalPlatelets Auto (Bld) [#/Vol]on 31-41-3911Fjcmxeitq (Bld) [#/Vol]184 10*3/zU365-995DkwdqvqqrWadsworth-Rittman HospitalProtein [Mass/volume] in Serum or Plasmaon 89-40-1196Wgkglpx [Mass/Vol]6.6 g/dL6.3-8.0[facility] HospitalRBC Auto (Bld) [#/Vol]on 75-34-2562VBY (Bld) [#/Vol]3.67 10*6/uLLow4.20-6.00[facility] Youngstownerum or plasma anion gap determinationon 18-51-1192U[place] gap [Moles/Vol]9 mmol/L8-[facility] HospitalBasophils Auto (Bld) [#/Vol]on 02-78-7644Gstwkenaq (Bld) [#/Vol] 0.04 10*3/uL<0.11[facility] HospitalBasophils/100 WBC Auto (Bld)on 99-33-2147Qaawaecvx/100 WBC (Bld)0.5 %[facility] HospitalBlood manual differential comment interpretation narrativeon 39-64-3643Bcajsi differential comment [place] (Bld) [Interp]AutoWadsworth-Rittman Hospital Eosinophils/100 WBC Auto (Bld)on 15-73-9936Ogeapcjhcan/100 WBC (Bld)4.3 % [facility] HospitalErythrocyte distribution width Auto (RBC) [Ratio]on 38-46-2202Jthbeyaldcj distribution width (RBC) [Ratio]12.8 %11.5-15.0 [facility] HospitalHematocrit Auto (Bld) [Volume fraction]on 97-42-4181Tmwwukxfkp (Bld) [Volume fraction]35.8 %39.0-51.0[facility] HospitalHemoglobin [Mass/volume] in Bloodon 16-12-7915Czttkgwpgc (Bld) [Mass/Vol]12.2 g/dL13.0-17.0[facility] HospitalLaboratory - Chemistry and Chemistry - challengeon 87-63-9693Umoewom [Mass/Vol]4.1 g/dL 3.9-4.9[facility] HospitalALP [Catalytic activity/Vol]75 U/L38-113 [facility] HospitalALT [Catalytic activity/Vol]16 U/L10-54 [facility] HospitalAST [Catalytic activity/Vol]16 U/L14-40 [facility] HospitalBilirubin [Mass/Vol]0.7 mg/dL0.2-1.3FC[facility] HospitalCalcium [Mass/Vol]9.8 mg/dL8.5-10.2FC[facility] HospitalChloride [Moles/Vol]103 mmol/N09-844HcypeoqxnWadsworth-Rittman HospitalCO2 [Moles/Vol]24 mmol/L48-72LcixgaovnWadsworth-Rittman HospitalCreatinine [Mass/Vol]0.88 mg/dL0.73-1.22[facility] HospitalGlucose [Mass/Vol] 128 mg/gH12-03JvotdokmhWadsworth-Rittman HospitalComment on above:The [place] Diabetes Association (ADA) provides guidance for cutoff [...] diabetes.Reference: Standardsof Medical Care in Diabetes 2016, [place] Diabetes [employer]. Diabetes Care. 2016.39(Suppl 1). Potassium [Moles/Vol]4.8 mmol/L3.7-5.1FKettering Health Daytonodium [Moles/Vol]140 mmol/Q137-920XdabszeemWadsworth-Rittman HospitalUrea nitrogen [Mass/Vol]18 mg/dL9-24[facility] HospitalLaboratory - Hematology and Cell countson 04-52-7050Adwbwdeujsl (Bld) [#/Vol]0.35 10*3/uL<0.46[facility] HospitalImmature granulocytes (Bld) [#/Vol]0.04 10*3/uL<0.10 [facility] HospitalImmature granulocytes/100 WBC (Bld)0.5 % [facility] HospitalLeukocytes [#/volume] corrected for nucleated erythrocytes in Blood by Automated counon 83-38-1111FVC corrected for nucl RBC Auto (Bld) [#/Vol]8.19 k/uL3.70-11.00[facility] Lymphocytes Auto (Bld) [#/Vol]on 39-80-4098Gsejsbszbcr (Bld) [#/Vol]1.36 10*3/uL 1.00-4.00[facility] HospitalLymphocytes/100 WBC Auto (Bld)on 61-58-7349Qrgtoyhrqrs/100 WBC (Bld)16.6 %[facility] CampusH Auto (RBC) [Entitic mass]on 79-50-3807CQC (RBC) [Entitic mass]31.3 pg26.0-34.0 [facility] HospitalMCHC Auto (RBC) [Mass/Vol]on 69-36-8849WQBL (RBC) [Mass/Vol]34.1 g/dL30.5-36.0[facility] HospitalMCV Auto (RBC) [Entitic vol]on 57-72-9682GXP (RBC) [Entitic vol]91.8 fL80.0-100.0 [facility] HospitalMonocytes Auto (Bld) [#/Vol]on 10-30-2023 Monocytes (Bld) [#/Vol]0.62 10*3/uL<0.87[facility] Monocytes/100 WBC Auto (Bld)on 07-19-6436Uogbpfmhp/100 WBC (Bld)7.6 %[facility] HospitalNeutrophils Auto (Bld) [#/Vol]on 63-54-8987Jmlswwhecqz (Bld) [#/Vol]5.78 10*3/uL1.45-7.50[facility] Neutrophils/100 WBC Auto (Bld)on 37-36-8436Sutirmpkvyu/100 WBC (Bld)70.5 % [facility] HospitalNo Panel Informationon 70-72-8724Motbomyyd GFR (CKD-EPI)89 mL/min/1.73m???>=60[facility] HospitalComment on above:Estimated Glomerular Filtration Rate (eGFR) [...] not accurately reflect actual GFR.Prostate Specific Antigen0.16 ng/mL<2.60[facility] HospitalComment on above:Total PSA test methodology used is the Electrochemiluminescence Immunoassay by [employer]. Total PSA values by differing methodologies cannot be interchanged. Testosterone Level78 ng/vF244-944SshaglduvWadsworth-Rittman HospitalComment on above:A testosterone level in the 193-320 ng/dL range with associated clinical symptoms is considered lowand may indicate hypogonadism (from [facility] 2009 363:123- 135). Results >320 ng/dL are considered normal.Result rechecked.Nucleated RBC Auto (Bld) [#/Vol]on 26-61-3630Lehxoecqu RBC (Bld) [#/Vol]10*3/uL<0.01[facility] HospitalNucleated erythrocytes [Presence] in Blood by Automated counton 59-97-2875Fsargnatu RBC Auto Ql (Bld)0.0 /100{WBC}[facility] HospitalPlatelet mean volume Auto (Bld) [Entitic vol]on 28-27-6232Xnvxacoz mean volume (Bld) [Entitic vol]9.5 fL9.0-12.7FC[facility] Platelets Auto (Bld) [#/Vol]on 76-69-6376Emqnikjfg (Bld) [#/Vol]192 10*3/uL 150-400[facility] HospitalProtein [Mass/volume] in Serum or Plasma on 71-14-9009Blxvhxq [Mass/Vol]6.5 g/dL6.3-8.0[facility] RBC Auto (Bld) [#/Vol]on 41-75-5160HXW (Bld) [#/Vol]3.90 10*6/uL4.20-6.00 [facility] Youngstownerum or plasma anion gap determinationon 65-23-8498Zhjid gap [Moles/Vol]13 mmol/L9-18FCleveland Clinic Mercy HospitalNo Panel Informationon 54-43-9392Kunpjonm Specific Antigen Total<0.13 ng/mL<=4.00 [facility] HospitalNo Panel Informationon 33-35-7937GGJB HealthcareType of biopsy: tangential Informed consent: discussed [...] taken yes Amount of lidocaine used: 0.5 [facility] LincolnGLYCOHEMOGLOBIN A1Con 36-53-2625BLW RECOMMENDATIONSEE BELOWSelect Medical Specialty Hospital - Southeast OhioComment on above:Result Comment: ADA RECOMMENDED LIMIT 4.0 - 6.0 ADA THERAPEUTIC TARGET < 7.0 ACTION SUGGESTED > 7.0Performed By: #### DATA1C #### [facility] [address] [place] [address] Dr. Bharati AguiarGlucose [Mass/Vol]131 mg/dLNoRegency Hospital Cleveland WestComment on above:Performed By: #### DATA1C #### [facility] [address] [address] [address] Bharati AguiarHbA1c (Bld) [Mass fraction]6.2 %Normal4.5-6.2The [facility] HospitalComment on above:Performed By: #### DATA1C #### [facility] [address] [address] [address] Bharati AguiarXR CSPINE OBL FLEX_EXTon 77-66-1186VN CSPINE OBL FLEX_EXT EXAMINATION: XR CSPINE OBL [...] Date: 2022-07-21 15:52[facility] Southeast OhioGLYCOHEMOGLOBIN A1Con 99-64-5871JHZ RECOMMENDATIONSEE BELOW NormalThe [facility] HospitalComment on above:Result Comment: ADA RECOMMENDED LIMIT 4.0 - 6.0 ADA THERAPEUTIC TARGET < 7.0 ACTION SUGGESTED > 7.0Performed By: #### DATA1C #### [facility] [address] [place] [address] Dr. Bharati AguiarGlucose [Mass/Vol]134 mg/dLNoRegency Hospital Cleveland WestComment on above:Performed By: #### DATA1C #### [facility] [address] [place] [address] Dr. Bharati AguiarHbA1c (Bld) [Mass fraction]6.3 %Critically high4.5-6.2The [facility] HospitalComment on above:Performed By: #### DATA1C #### [facility] [address] [place] [address] Dr. Calabrese ChangECHOCARDIO M/2D COMPLETEon 98-98-0614AGAOBGAXGU M/2D COMPLETE Patient: PABLO FELIX Exam Date: 04/27/2022 : 1945 Gender:M Ordering : LORA ENGLISH Admission #: [id number] Family : DR JAMAR FALL D.O. Order #: [id number] CLICK HERE TO VIEW EXAM ECHOCARDIOGRAM REPORT [...] 04/28/2022 at 19:09[facility] Southeast OhioGLYCOHEMOGLOBIN A1Con 76-97-6214HXG RECOMMENDATIONSEE [facility] HospitalComment on above:Result Comment: ADA RECOMMENDED LIMIT 4.0 - 6.0 ADA THERAPEUTIC TARGET < 7.0 ACTION SUGGESTED > 7.0Performed By: #### DATA1C ####[facility] [address] [address]DrJunior AguiarGlucose [Mass/Vol]137 mg/dLSelect Medical Specialty Hospital - Southeast [place] Comment on above:Performed By: #### DATA1C ####[facility] [address] [address]Dr. Bharati AguiarHbA1c (Bld) [Mass fraction] 6.4 %Critically high4.5-6.2The [facility] HospitalComment on above:Performed By: #### DATA1C ####[facility] [address] [address]Dr. Bharati Muro BONE SC WH BODYon 02-40-7830ZK BONE SC BODYWHOLE BODY RADIONUCLIDE BONE SCAN: COMPARISON: CT of the chest, abdomen, and pelvis dated 11/05/2021 HISTORY: Prostate carcinoma TRACER DOSE: 25.0 mCi of technetium-99m MDP. FINDINGS: Fairly prominent tracer uptake is seen at the lesser trochanter of the left hip. This is suspicious for metastasis, although it was not obviously included in the zocab-sc-orkj of the recent CT. There are foci [...] by: FEDE DE JESUS Date: 2021-11-06 12:45Normal [facility] CHEST W CONon 80-86-2098JA CHEST W CONClinical Indication: Primary malignant neoplasm [...] Date: 2021-11-05 14:08[facility] OhioPROF 14(COMP METB)on 52-62-8745Utlehjz [Mass/Vol]3.6 g/dLNormal 3.4-5.0The [facility] on above:Performed By: #### CMP #### [facility] [address] [place] [address] Dr. Bharati AguiarAlbumin/Globulin [Mass ratio]1.1 {ratio}NormalThe [facility] on above:Performed By: #### CMP #### [facility] [address] [place] [address] Dr. Bharati Romero [Catalytic activity/Vol]89 U/OLwvsgr29-000Qbk [facility] on above:Performed By: #### CMP #### [facility] [address] [place] [address] Dr. Bharati Burnette [Catalytic activity/Vol]33 U/WBnjjep52-50Cnz [facility] HospitalComment on above:Performed By: #### CMP #### [facility] [address] [address] [address] Bharati Marcos gap [Moles/Vol]12.1 mmol/LNormalThe [facility] Comment on above:Performed By: #### CMP #### [facility] [address] [address] [address] Bharati AguiarAST [Catalytic activity/Vol]19 U/POjdqkw30-82Fda [facility] HospitalComment on above:Performed By: #### CMP #### [facility] [address] [address] [address] Bharati AguiarBilirubin [Mass/Vol]0.9 mg/dLNormal0.2-1.3THolzer Medical Center – [facility] Comment on above:Performed By: #### CMP #### [facility] [address] [address] [address] Bharati AguiarCalcium [Mass/Vol]8.8 mg/dLNormal8.5-10.1The [facility] Comment on above:Performed By: #### CMP #### [facility] [address] [address] [address] Bharati AguiarChloride [Moles/Vol]103 mmol/UDrcrac81-494Jbt [facility] Comment on above:Performed By: #### CMP #### [facility] [address] [address] [address] Bharati AguiarCO2 [Moles/Vol]28.6 mmol/AArkusl24.0-30.0The [facility] Comment on above:Performed By: #### CMP #### [facility] [address] [address] [address] Bharati AguiarCreatinine [Mass/Vol]0.85 mg/dLNormal0.66-1.25The [facility] HospitalComment on above:Performed By: #### CMP #### [facility] [address] [address] [address] Calabrese ChangEGFR-AF EAST TIMORESE>60Normal>=60The [facility] HospitalComment on above:Performed By: #### CMP #### [facility] [address] [address] [address] Bharati MarshGFR-NON AF EAST TIMORESE>60Normal>=60The [facility] HospitalComment on above:Performed By: #### CMP #### [facility] [address] [address] [address] Bharati AguiarGlobulin (S) [Mass/Vol]3.4 g/dLNormFlower HospitalComment on above:Performed By: #### CMP #### [facility] [address] [address] [address] Bharati AguiarGlucose [Mass/Vol]127 mg/dLCritically undq59-127Crh [facility] HospitalComment on above:Performed By: #### CMP #### [facility] [address] [place] [address] Dr. Bharati AguiarPotassium [Moles/Vol]4.7 mmol/LNormal3.4-5.0The [facility] Comment on above:Performed By: #### CMP #### [facility] [address] [place] [address] Dr. Bharati AguiarProtein [Mass/Vol]7.0 g/dLNormal6.1-8.2The [facility] Comment on above:Performed By: #### CMP #### [facility] [address] [place] [address] Dr. Bharati AguiarSodium [Moles/Vol]139 mmol/HPrxcgw521-707Dzd [facility] Comment on above:Performed By: #### CMP #### [facility] [address] [place] [address] Dr. Bharati AguiarUrea nitrogen [Mass/Vol]18.0 mg/dLNormal7.0-18.0The [facility] HospitalComment on above:Performed By: #### CMP #### [facility] [address] [place] [address] Dr. Bharati AguiarUrea nitrogen/Creatinine [Mass ratio]21.2 mg/mgNormalThParma Community General HospitalComment on above:Performed By: #### CMP #### [facility] [address] [place], [place] [id number] Dr. Bharati Aguiar Vital Signs Date TimeVital SignValuePerforming InvqcptptFcipngwu85-72-5331 09:27-0400Body kpabsr790.91 cmBenjamin Ball DO Work Phone: [facility]10-16-2025 09:27-0400 Body mass index (BMI) [Ratio]32.7 kg/c5Plmgmtap Ball DO Work Phone: [phone]10-16-2025 09:27-0400 Body zilxnt20.44 kgBenjamin Ball DO Work Phone: [phone] [place], [place] [address]10-16-2025 09:27-0400 Diastolic blood imimxgsr03 mm[Hg]Jamar Ball DO Work Phone: [phone]10-16-2025 09:27-0400 Heart rate71 /minBenjamin Ball DO Work Phone: [phone] [place], [place] 96[address]10-16-2025 09:27-0400 Respiratory rate12 /minBenjamin Ball DO Work Phone: [phone] [place], [place] [address]10-16-2025 09:27-0400 Systolic blood hinyfbcg660 mm[Hg]Jamar Ball DO Work Phone: [phone]02-17-2025 09:44-0500 Body rlibbn630.91 cmWadsworth-Rittman Hospital02-17-2025 09:44-0500Body mass index (BMI) [Ratio]32.4 kg/q5IdvwfuptrWadsworth-Rittman Hospital02-17-2025 09:44-0500Body .53 kgWadsworth-Rittman Hospital02-17-2025 09:44-0500Diastolic blood fnwoicwl95 mm[Hg][facility] 09-02-2024 09:44-0500Heart rate46 /[facility] 09-02-2024 09:44-0500Respiratory rate12 /[facility] 09-02-2024 09:44-0500Systolic blood iozwvswr598 mm[Hg][facility]01-23-2025 09:07-0500Body kajqjj173.6 cmChristo Howard APRN.DEVULCANIZER CHARGER Work Phone: [facility]01-23-2025 09:07-0500Body mass index (BMI) [Ratio]33.82 kg/d5LiiewChristo Howard APRN.DEVULCANIZER CHARGER Work Phone: [facility]01-23-2025 09:07-0500Body temperature 97.9 [degF]Christo Howard APRN.DEVULCANIZER CHARGER Work Phone: [facility]01-23-2025 09:07-0500Body gilobz86 kg Christo Howard APRN.DEVULCANIZER CHARGER Work Phone: [facility]01-23-2025 09:07-0500Diastolic blood juilthxi64 mm[Hg]Christo Howard APRN.DEVULCANIZER CHARGER Work Phone: [facility]01-23-2025 09:07-0500Heart rate57 /min Christo Howard APRN.DEVULCANIZER CHARGER Work Phone: [facility]01-23-2025 09:07-0500Respiratory rate 16 /minChristo Howard APRN.DEVULCANIZER CHARGER Work Phone: [facility]01-23-2025 09:07-3339VmT4% (BldA) [Mass fraction]99 %Christo Howard APRN.DEVULCANIZER CHARGER Work Phone: [facility]01-23-2025 09:07-0500Systolic blood aoqfheze932 mm[Hg]Christo Howard APRN.DEVULCANIZER CHARGER Work Phone: [facility]11-25-2024 14:25-0500Body kgkyvp726.91 cmWadsworth-Rittman Hospital11-25-2024 14:25-0500Body mass index (BMI) [Ratio]32.8 kg/q8LswnegjspWadsworth-Rittman Hospital11-25-2024 14:25-0500Body ocesdh84.55 kgWadsworth-Rittman Hospital11-25-2024 14:25-0500Diastolic blood ekhxjtex50 mm[Hg][facility]11-25-2024 14:25-0500 Heart rate61 /[facility]11-25-2024 14:25-0500 Respiratory rate12 /[facility]11-25-2024 14:25-0500 Systolic blood vlciebex053 mm[Hg][facility]10-24-2024 08:52-0400Body mass index (BMI) [Ratio]32.79 kg/u7MtuvoMarco A Esqueda MD Work Phone: [facility]10-24-2024 08:52-0400Body temperature 97.3 [degF]Marco A Esqueda MD Work Phone: [facility]10-24-2024 08:52-0400Body mviwub99.1 kgMarco A Esqueda MD Work Phone: [facility]10-24-2024 08:52-0400Diastolic blood xiduvdaj17 mm[Hg]Marco A Esqueda MD Work Phone: [facility]10-24-2024 08:52-0400Heart rate62 /min Marco A Esqueda MD Work Phone: [facility]10-24-2024 08:52-0400Respiratory rate 16 /minMarco A Esqueda MD Work Phone: [facility]10-24-2024 08:52-4282XgU6% (BldA) [Mass fraction]99 %Marco A Esqueda MD Work Phone: [facility]10-24-2024 08:52-0400Systolic blood qlaepopb845 mm[Hg]Marco A Esqueda MD Work Phone: [facility]10-04-2024 08:15-0400Blood Pressure LocationAnthony SCRUGGS [facility]10-04-2024 08:15-0400Body dhxctmsnrfo01.6 [degF]Anthony SCRUGGS [facility]10-04-2024 08:15-0400Diastolic blood pewobfps75 mm[Hg]Anthony SCRUGGS [facility]10-04-2024 08:15-0400Heart rate64 /minAnthony SCRUGGS [facility]10-04-2024 08:15-0400Respiratory rate17 /minAnthony SCRUGGS [facility]10-04-2024 08:15-0400Systolic blood drorhbvn635 mm[Hg]Anthony SCRUGGS [facility]09-10-2024 08:37-0400Body ugakti707.91 cmWadsworth-Rittman Hospital09-10-2024 08:37-0400Body mass index (BMI) [Ratio]33 kg/l3AlosrnxpbWadsworth-Rittman Hospital09-10-2024 08:37-0400Body quqman95.12 kgWadsworth-Rittman Hospital09-10-2024 08:37-0400Diastolic blood nmpiebys42 mm[Hg] [facility]09-10-2024 08:37-0400Heart rate52 /[facility]09-10-2024 08:37-0400Respiratory rate12 /[facility]09-10-2024 08:37-0400Systolic blood jyvaerld702 mm[Hg] [facility]07-19-2024 11:06-0400Body mhykdv406.6 Dara Rajan ARCHITECTURAL ASSOCIATE.DEVULCANIZER CHARGER Work Phone: [facility]07-19-2024 11:06-0400Body mass index (BMI) [Ratio]33.36 kg/k1YclkhLynne Rajan APRN.DEVULCANIZER CHARGER Work Phone: [facility]07-19-2024 11:06-0400Body temperature 97.3 [degF]Lynne Rajan ARCHITECTURAL ASSOCIATE.DEVULCANIZER CHARGER Work Phone: [facility]07-19-2024 11:06-0400Body pgriny16.7 kgKalaagapito Satinder ESPINOZAN.DEVULCANIZER CHARGER Work Phone: [facility]07-19-2024 11:06-0400Diastolic blood ktaajzbl12 mm[Hg]Lynne Rajan ARCHITECTURAL ASSOCIATE.DEVULCANIZER CHARGER Work Phone: [facility]07-19-2024 11:06-0400Heart rate52 /min Lynne Rajan ARCHITECTURAL ASSOCIATE.DEVULCANIZER CHARGER Work Phone: [facility]07-19-2024 11:06-0400Respiratory rate 16 /minErniharika Rajan ARCHITECTURAL ASSOCIATE.DEVULCANIZER CHARGER Work Phone: [facility]07-19-2024 11:06-8051ZzJ9% (BldA) [Mass fraction]98 %Lynne Rajan ARCHITECTURAL ASSOCIATE.DEVULCANIZER CHARGER Work Phone: [facility]07-19-2024 11:06-0400Systolic blood mhykmojd897 mm[Hg]Lynne Rajan ARCHITECTURAL ASSOCIATE.DEVULCANIZER CHARGER Work Phone: [facility]05-09-2024 08:38-0400Body awmpdq522.91 cm[facility] 08:38-0400Body mass index (BMI) [Ratio]33.2 kg/j7LdxkgxwhtWadsworth-Rittman Hospital05-09-2024 08:38-0400Body axaray81.8 kgWadsworth-Rittman [facility]05-09-2024 08:38-0400Diastolic blood tklrosqf14 mm[Hg][facility]05-09-2024 08:38-0400 Heart rate48 /[facility]05-09-2024 08:38-0400 Respiratory rate12 /[facility]05-09-2024 08:38-0400 Systolic blood urlobbxq440 mm[Hg][facility]04-18-2024 09:14-0400Body oywupp849.6 cmChristo Howard APRN.DEVULCANIZER CHARGER Work Phone: [facility]04-18-2024 09:14-0400Body temperature 97.81 [degF]Christo Howard ARCHITECTURAL ASSOCIATE.DEVULCANIZER CHARGER Work Phone: [facility]04-18-2024 09:14-0400Body azbsfo69.9 kgChristo Howard ARCHITECTURAL ASSOCIATE.DEVULCANIZER CHARGER Work Phone: [facility]04-18-2024 09:14-0400Diastolic blood velfzcco57 mm[Hg]Christo Howard ARCHITECTURAL ASSOCIATE.DEVULCANIZER CHARGER Work Phone: [facility]04-18-2024 09:14-0400Heart rate56 /min Christo Howard ARCHITECTURAL ASSOCIATE.DEVULCANIZER CHARGER Work Phone: [facility]04-18-2024 09:14-0400Respiratory rate 16 /minChristo Howard ARCHITECTURAL ASSOCIATE.DEVULCANIZER CHARGER Work Phone: [facility]04-18-2024 09:14-5321TdZ1% (BldA) [Mass fraction]97 %Christo Howard ARCHITECTURAL ASSOCIATE.DEVULCANIZER CHARGER Work Phone: [facility]04-18-2024 09:14-0400Systolic blood vlcrfaja213 mm[Hg]Christo Howard ARCHITECTURAL ASSOCIATE.DEVULCANIZER CHARGER Work Phone: [facility]04-05-2024 09:05-0400Blood Pressure LocationPabj SCRUGGS [facility]04-05-2024 09:05-0400Diastolic blood bmvbomgj96 mm[Hg]Anthony SCRUGGS [facility]04-05-2024 09:05-0400Heart rate53 /minAnthony SCRUGGS [facility]04-05-2024 09:05-0400Respiratory rate16 /minAnthony SCRUGGS [facility]04-05-2024 09:05-0400Systolic blood xnuibjxk070 mm[Hg]Anthony SCRUGGS [facility]02-27-2024 14:13-0500Body .91 cmW[facility]02-27-2024 14:13-0500Body mass index (BMI) [Ratio]33.4 kg/p1JdsvxddepWadsworth-Rittman Hospital02-27-2024 14:13-0500Body xqgutd31.42 kgWadsworth-Rittman Hospital02-27-2024 14:13-0500Diastolic blood verylomk02 mm[Hg] [facility]02-27-2024 14:13-0500Heart rate56 /[facility]02-27-2024 14:13-0500Respiratory rate12 /[facility]02-27-2024 14:13-0500Systolic blood aikqoggn230 mm[Hg] [facility]02-08-2024 08:30-0500Body srlfpa043.91 cm Jamar Ball Other [facility] [employer] Other 02-08-2024 08:30-0500Body mass index (BMI) [Ratio] 34.08 kg/v8Veetdjrx Ball Other [employer] Other 02-08-2024 08:30-0500Body mbsuvc32.25 kgBenjamin Ball Other [employer] Other 02-08-2024 08:30-0500Diastolic blood mm[Hg] Jamar Ball Other [employer] Other 02-08-2024 08:30-0500Respiratory rate12 /minBenjamin Ball Other [employer] Other 02-08-2024 08:30-0500Systolic blood xmixakuq109 mm[Hg] Jamar Ball Other [employer] Other 11-14-2023 15:00-0500Body exrqfp545.91 cmBenjamin Ball Other [employer] Other 11-14-2023 15:00-0500Body mass index (BMI) [Ratio] 32.84 kg/z5Patnugkm Ball Other [employer] Other 11-14-2023 15:00-0500Body ycirra36.71 kgBenjamin Ball Other [employer] Other 11-14-2023 15:00-0500Diastolic blood udkkiiak92 mm[Hg] Jamar Ball Other [employer] Other 11-14-2023 15:00-0500Respiratory rate12 /minBenjamin Ball Other [employer] Other 11-14-2023 15:00-0500Systolic blood oruauwdg956 mm[Hg] Jamar Ball Other [employer] Other 10-16-2023 09:45-0400Body vbyqed385.91 cmBenjamin Ball Other [employer] Other 10-16-2023 09:45-0400Body mass index (BMI) [Ratio] 32.14 kg/p0Xgonhjco Ball Other [employer] Other 10-16-2023 09:45-0400Body nebuuf06.72 kgBenjamin Ball Other [employer] Other 10-16-2023 09:45-0400Diastolic blood vqsvkxic73 mm[Hg] Jamar Ball Other [employer] Other 10-16-2023 09:45-0400Respiratory rate12 /minBenjamin Ball Other [facility] [employer] Other 10-16-2023 09:45-0400Systolic blood opigatfq028 mm[Hg] Jamar Fall Other nort [employer] Other 10-12-2023 09:23-0400Diastolic blood kdvsuenj51 mm[Hg] Christo Howard APRN.DEVULCANIZER CHARGER Work Phone: [facility]10-12-2023 09:23-0400Heart rate50 /min Christo Howard APRN.DEVULCANIZER CHARGER Work Phone: [facility]10-12-2023 09:23-0400Systolic blood mm[Hg]Christo Howadr APRN.DEVULCANIZER CHARGER Work Phone: [facility]10-12-2023 09:20-0400Body iealpu174.6 cmChristo Howard APRN.DEVULCANIZER CHARGER Work Phone: [facility]10-12-2023 09:20-0400Body temperature 97 [degF]Christo Howard APRN.DEVULCANIZER CHARGER Work Phone: [facility]10-12-2023 09:20-0400Body xcinio40.53 kgChristo Howard APRN.DEVULCANIZER CHARGER Work Phone: [facility]10-12-2023 09:20-0400Respiratory rate 16 /minChristo Howard APRN.DEVULCANIZER CHARGER Work Phone: [facility]10-12-2023 09:20-7815ZdU9% (BldA) [Mass fraction]100 %Christo Howard APRN.DEVULCANIZER CHARGER Work Phone: [facility]10-02-2023 08:45-0400Blood Pressure Fe SCRUGGS [facility]10-02-2023 08:45-0400Diastolic blood mm[Hg]Anthony SCRUGGS [facility]10-02-2023 08:45-0400Heart rate62 /Rema SCRUGGS [facility]10-02-2023 08:45-0400Respiratory rate16 /minAnthony SCRUGGS [facility]10-02-2023 08:45-0400Systolic blood mm[Hg]Anthony SCRUGGS [facility]09-20-2023 13:45-0400Body soymnf148.91 cmBenjamin Ball Other [employer] Other 09-20-2023 13:45-0400Body mass index (BMI) [Ratio] 32.46 kg/p5Jfpiyhry Ball Other [employer] Other 09-20-2023 13:45-0400Body orkeed76.63 kgBenjamin Ball Other [employer] Other 09-20-2023 13:45-0400Diastolic blood tygsuzzv60 mm[Hg] Jamar Ball Other [employer] Other 09-20-2023 13:45-0400Respiratory rate12 /minBenjamin Ball Other [employer] Other 09-20-2023 13:45-0400Systolic blood lbkevota121 mm[Hg] Jamar Ball Other [employer] Other 08-30-2023 08:45-0400Body fhoucr057.91 cmBenjamin Ball Other [employer] Other 08-30-2023 08:45-0400Body mass index (BMI) [Ratio] 32.81 kg/n1Xldmxoye Ball Other [employer] Other 08-30-2023 08:45-0400Body sbolfy32.62 kgBenalfie Ball Other [employer] Other 08-30-2023 08:45-0400Diastolic blood xuvkgctc21 mm[Hg] Jamar Ball Other [employer] Other 08-30-2023 08:45-0400Respiratory rate12 /minBenalfie Fall Other [employer] Other 08-30-2023 08:45-0400Systolic blood vvrsuxze241 mm[Hg] Jamar Ball Other [employer] Other 07-20-2023 09:32-0400Body bubnch376.6 cmMarco A Esqueda MD Work Phone: [facility]07-20-2023 09:32-0400Body temperature 97.2 [degF]Marco A Esqueda MD Work Phone: [facility]07-20-2023 09:32-0400Body eayurl59.62 kgMarco A Esqueda MD Work Phone: [facility]07-20-2023 09:32-0400Diastolic blood cphitred29 mm[Hg]Marco A Esqueda MD Work Phone: [facility]07-20-2023 09:32-0400Heart rate50 /min Marco A Esqueda MD Work Phone: [facility]07-20-2023 09:32-0400Respiratory rate 16 /minMarco A Esqueda MD Work Phone: [facility]07-20-2023 09:32-2198YkD5% (BldA) [Mass fraction]97 %Marco A Esqueda MD Work Phone: [facility]07-20-2023 09:32-0400Systolic blood tbiaqksg341 mm[Hg]Marco A Esqueda MD Work Phone: [facility]04-27-2023 09:30-0400Body .6 cmChristo Howard APRN.DEVULCANIZER CHARGER Work Phone: [facility]04-27-2023 09:30-0400Body temperature 97.11 [degF]Christo Howard APRN.DEVULCANIZER CHARGER Work Phone: [facility]04-27-2023 09:30-0400Body oxjwhu93.44 kgChristo Howard APRN.DEVULCANIZER CHARGER Work Phone: [facility]04-27-2023 09:30-0400Diastolic blood mm[Hg]Christo Howard APRN.DEVULCANIZER CHARGER Work Phone: [facility]04-27-2023 09:30-0400Heart rate54 /min Christo Howard APRN.DEVULCANIZER CHARGER Work Phone: [facility]04-27-2023 09:30-0400Respiratory rate 16 /minChristo Howard APRN.DEVULCANIZER CHARGER Work Phone: [facility]04-27-2023 09:30-9059MvP8% (BldA) [Mass fraction]98 %Christo Howard APRN.DEVULCANIZER CHARGER Work Phone: [facility]04-27-2023 09:30-0400Systolic blood gpqoalbt066 mm[Hg]Christo Howard APRN.DEVULCANIZER CHARGER Work Phone: [facility]03-03-2023 08:30-0500Body gqeycy301.91 cmB[employer]Financial [employer] Other [place] [employer] Other 03-03-2023 08:30-0500Body mass index (BMI) [Ratio] 33.16 kg/g9Usrielea Ball Other [employer] Other 03-03-2023 08:30-0500Body mpougv36.62 kgBenjamin Ball Other [employer] Other 03-03-2023 08:30-0500Diastolic blood pbaqidts61 mm[Hg] Jamar Ball Other [employer] Other 03-03-2023 08:30-0500Respiratory rate12 /minBenjamin Ball Other [employer] Other 03-03-2023 08:30-0500Systolic blood nojktyaq058 mm[Hg] Jamar Ball Other [employer] Other 02-24-2023 08:30-0500Body .91 cmBenjamin Ball Other [employer] Other 02-24-2023 08:30-0500Body mass index (BMI) [Ratio] 33.45 kg/r7Bmpbdqum Ball Other [employer] Other 02-24-2023 08:30-0500Body zjinqb38.44 kgBenjamin Ball Other [employer] Other 02-24-2023 08:30-0500Diastolic blood jmkoobmq24 mm[Hg] Jamar Ball Other [employer] Other 02-24-2023 08:30-0500Respiratory rate12 /minBenjamin Ball Other [employer] Other 02-24-2023 08:30-0500Systolic blood ccfgzfha719 mm[Hg] Jamar Ball [facility] [employer] Other 02-24-2023 07:30-0500Body nqrsmu488.91 cmBenjajennifer Ball Other [employer] Other 02-24-2023 07:30-0500Body mass index (BMI) [Ratio] 33.45 kg/k5Ixxeorfg Ball Other [place] [employer] Other 02-24-2023 07:30-0500Body etpghm32.44 kgBenalfie Ball Other [facility] [employer] Other 02-24-2023 07:30-0500Diastolic blood fludncle32 mm[Hg] Jamar Fall Other [place] [employer] Other 02-24-2023 07:30-0500Respiratory rate12 /minBenalfie Ball Other [place] [employer] Other 02-24-2023 07:30-0500Systolic blood gqlthfyh864 mm[Hg] Jamar Fall Other [place] [employer] Other 01-26-2023 09:24-0500Body akmpgx213.6 cmMarco A Esqueda MD Work Phone: [facility]01-26-2023 09:24-0500Body temperature 97 [degF]Marco A Esqueda MD Work Phone: [facility]01-26-2023 09:24-0500Body crrqzy00.44 kgMarco A Esqueda MD Work Phone: [facility]01-26-2023 09:24-0500Diastolic blood omeikixm09 mm[Hg]Marco A Esqueda MD Work Phone: [facility]01-26-2023 09:24-0500Heart rate53 /min Marco A Esqueda MD Work Phone: [facility]01-26-2023 09:24-0500Respiratory rate 16 /minMarco A Esqueda MD Work Phone: [facility]01-26-2023 09:24-3623QuZ5% (BldA) [Mass fraction]97 %Marco A Esqueda MD Work Phone: [facility]01-26-2023 09:24-0500Systolic blood tyjqocyn065 mm[Hg]Marco A Esqueda MD Work Phone: [facility]01-05-2023 15:30-0500Body nyxety754.91 cmBenjamin Ball Other [employer] Other 01-05-2023 15:30-0500Body mass index (BMI) [Ratio] 34.18 kg/a5Xsxoaxwn Ball Other [employer] Other 01-05-2023 15:30-0500Body rkugph93.52 kgBenjamin Ball Other [employer] Other 01-05-2023 15:30-0500Diastolic blood fcysxkoa05 mm[Hg] Jamar Ball Other [employer] Other 01-05-2023 15:30-0500Respiratory rate16 /minBenjamin Ball Other [employer] Other 01-05-2023 15:30-0500Systolic blood bcaaewcm226 mm[Hg] Jamar Ball Other [employer] Other [id number] 09:07-0400[facility]10-28-2022 09:07-0400Diastolic blood mm[Hg]Anthonycindy SCRUGGS [facility]10-28-2022 09:07-0400Heart rate55 /minPatrick SCRUGGS [facility]10-28-2022 09:07-0400Respiratory rate16 /minPatrick SCRUGGS [facility]10-28-2022 09:07-0400Systolic blood zagdreby473 mm[Hg]Anthony SCRUGGS [facility]10-27-2022 10:41-0400Body pnckllkatdy03.81 [degF]LUAN Khan MD Work Phone: [facility]10-27-2022 10:41-0400Body .07 kgNA Bill JAMES Work Phone: [facility]10-27-2022 10:41-0400Diastolic blood zorxweal14 mm[Hg]LUAN Khan MD Work Phone: [facility]10-27-2022 10:41-0400Heart rate51 /min LUAN Khan MD Work Phone: [facility]10-27-2022 10:41-0400Respiratory rate 18 /NathalieLUAN Khan MD Work Phone: [facility]10-27-2022 10:41-1520RuQ1% (BldA) [Mass fraction]99 %LUAN Khan MD Work Phone: [facility]10-27-2022 10:41-0400Systolic blood ffqolply016 mm[Hg]LUAN Khan MD Work Phone: [facility]08-04-2022 09:36-0400Body vmhbje883.6 cmMarco A Esqueda MD Work Phone: [facility]08-04-2022 09:36-0400Body temperature 97.9 [degF]Marco A Esqueda MD Work Phone: [facility]08-04-2022 09:36-0400Body ceqkoj82.07 kgMarco A Esqueda MD Work Phone: [facility]08-04-2022 09:36-0400Diastolic blood elsqyrxf88 mm[Hg]Marco A Esqueda MD Work Phone: [facility]08-04-2022 09:36-0400Heart rate63 /min Marco A Esqueda MD Work Phone: [facility]08-04-2022 09:36-0400Respiratory rate 16 /minMarco A Esqueda MD Work Phone: [facility]08-04-2022 09:36-9526SdA9% (BldA) [Mass fraction]99 %Marco A Esqueda MD Work Phone: [facility]08-04-2022 09:36-0400Systolic blood envecuqz606 mm[Hg]Marco A Esqueda MD Work Phone: [facility]05-05-2022 10:50-0400Body temperature 97.7 [degF]Lab/[place] Work Phone: [facility]05-05-2022 10:50-0400Diastolic blood dellusqi66 mm[Hg]Lab/[place] Work Phone: [facility]05-05-2022 10:50-0400Heart rate60 /min Lab/[place] Work Phone: [facility]05-05-2022 10:50-0400Respiratory rate 18 /minLab/[facility] Work Phone: [facility]05-05-2022 10:50-8430AxY7% (BldA) [Mass fraction]95 %Lab/[place] Work Phone: [facility]05-05-2022 10:50-0400Systolic blood mmbjodnp909 mm[Hg]Lab/[place] Work Phone: [facility]04-28-2022 13:58-0400Body inwmmz083.6 cmMarco A Esqueda MD Work Phone: [place] [address]-28-2022 13:58-0400Body temperature 97.39 [degF]Marco A Esqueda MD Work Phone: [facility]04-28-2022 13:58-0400Body .97 kgMarco A Esqueda MD Work Phone: [place] [address]-28-2022 13:58-0400Diastolic blood yrpgiiqn00 mm[Hg]Marco A Esqueda MD Work Phone: [facility]04-28-2022 13:58-0400Heart rate68 /min Marco A Esqueda MD Work Phone: [facility]04-28-2022 13:58-0400Respiratory rate 16 /minMarco A Esqueda MD Work Phone: [place] [address]-28-2022 13:58-4868OpC6% (BldA) [Mass fraction]98 %Marco A Esqueda MD Work Phone: [facility]04-28-2022 13:58-0400Systolic blood htkixtlu451 mm[Hg]Marco A Esqueda MD Work Phone: [facility]04-25-2022 13:03-0400Blood Pressure LocationPabj SCRUGGS [facility] 04-25-2022 13:03-0400Diastolic blood mm[Hg] Anthony SCRUGGS [facility] 04-25-2022 13:03-0400Heart rate61 /minPabj SCRUGGS [facility] 04-25-2022 13:03-0400Systolic blood skcxysit299 mm[Hg] Anthony SCRUGGS [facility] Encounters Encounter DateEncounter TypeCare ProviderFacilityStart: 52-17-8815tflototcih Anthony SCRUGGSFacility:[facility]Start: 03-94-2746nlfbzbfpueIdqdnnr R WATERS Facility:[facility] [place]Start: 05-22-2025 End: 50-42-9910kjsfbesruiQDOYLPTQ E BALLFacility:[facility]art: 05-15-2025 End: 28-05-3515qtuaotnjwvXCDAENLS E BALLFacility:[facility] Day[facility]art: 05-01-2025 End: 03-07-1896yalbddzspoCwnuwenv Ball DO Work Phone: [facility] Work Phone: Start: 05-01-2025 End: 11-83-0158Vdhwcoq encounter procedureBenjamin Ball DO-[facility] Work Phone: Start: 03-31-2025 End: 07-57-4070efsoffqnlcXepgweb R WATERSFacility:[facility]art: 03-31-2025 End: 91-61-1570Uhzapjg encounter procedureAnthony SCRUGGS [facility] start: 94-24-3317Gag-patient / Non-visitOutside Provider-[facility] Work Phone: Start: 22-16-8946Yyp-patient / Non-visitMelgena Quiroz CNP-[facility] Work Phone: Start: 03-20-2025 End: 63-97-8465tpvghkeofzTTQIGGY [facility] Hospitaltart: 03-20-2025 End: 67-21-0838Wilidvdgf for general adult medical examination without abnormal findingsGUTHRIE CORNING HOSPITALGENA [facility] CenterStart: 02-25-2025 End: 66-56-6658Sokoea flowsheetNatalie A Felter ARCHITECTURAL ASSOCIATE-DEVULCANIZER CHARGER Work Phone: [facility] [place] DermatologyStart: 02-25-2025 End: 96-23-5145Pgkkna flowsheetNatalie A Felter ARCHITECTURAL ASSOCIATE-DEVULCANIZER CHARGER Work Phone: [facility] [place] DermatologyStart: 02-25-2025 End: 78-09-1219Tnqmco outpatient visit 15 minutesNatalie A Felter ARCHITECTURAL ASSOCIATE-DEVULCANIZER CHARGER Work Phone: noMS Krishnan DermatologyComment on above:Seborrheic keratosis (Primary Dx); Melanocytic nevus of trunk; Actinic keratosis; Lentigines; Psoriasis vulgaris ; History of SCC (squamous cell carcinoma) of skinStart: 02-20-2025 End: 53-76-2962dkfbhgylrgENDCRUVQ E BALLFacility:[facility] Daytontart: 02-17-2025 End: 90-88-7797ztnskayqhgFglccbv [place] Giedrabrianna JAMESFacility:[facility] [place] Start: 42-99-1164Vom-patient / Non-visitMarco A Esqueda MD-[facility] Work Phone: Start: 2025 End: 37-61-4171asrgjuipeoNPTBI ABHYANKARFacility:[facility] HospitalStart: 11-07-2024 End: 90-05-6678yirygdzmwuYANVPKwadwo ESQUEDAFacility:[facility] Start: 10-31-2024 End: 57-57-3853enhpthmiysPVVCZZOL E BALLFacility:[facility] Daytontart: 10-21-2024 End: 75-22-8245yucxujvdrfVmxyaqn Vmarioautamanda Sethedcelia JAMESFacility:[facility] [place] Start: 10-07-2024 End: 30-45-3724gbhgpgleupJdvilih R WATERSFacility:EU Jentart: 10-07-2024 End: 75-24-9104dhskhvipwiNurgmyaSri Herrera MDFacility:MARY ANN Roberts Start: 09-02-2024 End: 90-47-8244sqebakkdswPvmgfoopqUniversity Hospitals St[facility] Work Phone: Start: 09-02-2024 End: 60-81-1833Pmzttjr encounter procedureNov[facility] Health [facility] Physician GroupBarney [facility] Work Phone: Start: 89-08-3354Vibtxuv encounter procedureSelect Medical Specialty Hospital - Youngstowntart: 08-08-2024 End: 37-75-5809xcthwomoxvAwu/[place] Work Phone: Hematology/OncologyComment on above:Malignant neoplasm of prostate (HCC) (Primary Dx)Malignant neoplasm of prostate (HCC) (Primary Dx); Essential hypertension; Coronary artery disease involving [place] heart without angina pectoris, unspecified vessel or lesion type; Type 2 diabetes mellitus without complication, without long-term current use of insulin (HCC)Start: 08-08-2024 End: 28-84-9052Lqtapzp encounter procedureChristo Howard APRN.CNP Work Phone: Hematology/OncologyStart: 08-01-2024 End: 97-90-6141ftugjpyknzVHPXFGZJ E BALLFacility:[facility] Daytontart: 08-09-3309Qnn-patient / Non-visitNovant Health [facility] Physician Group-[facility] Work Phone: Start: 07-25-2024 End: 45-61-1034Aopxgwnlx encounterMarco A Esqueda MD Work Phone: [facility] LaboratoryComment on above:Lab OrdersStart: 06-10-2024 End: 94-32-3329Kcmqzbd encounter procedureNovant Health [facility] Physician GroupBarney [facility]'s [facility] Center Work Phone: Start: 05-09-2024 End: 85-55-0282jjeexclfzdEdz/[place] Work Phone: Hematology/OncologyComment on above:Malignant neoplasm of prostate (HCC) (Primary Dx)Start: 05-09-2024 End: 70-92-4470Jvqyzty encounter Jovan Esqueda MD Work Phone: Hematology/OncologyStart: 05-08-2024 End: 07-32-0302MbkrlnKqlkhbk [facility] Work Phone: [facility] PharmacyComment on above: Refill RequestStart: 04-19-2024 End: 77-77-3332cjefxqkhuvWkexpue R WATERSFacility:EU [place]vueStart: 04-19-2024 End: 58-66-7784Hquxvir encounter Magi SCRUGGS [facility] [place] start: 04-01-2024 End: 16-66-6702YzjcxtFharaChalo Esqueda MD Work Phone: Hematology/OncologyComment on above:Refill Request Start: 04-01-2024 End: 71-68-2887CpsutbHogimfm McProMedica [facility] Work Phone: [facility] -3Comment on above:Refill Request Start: 03-26-2024 End: 11-48-2192sszvkpvntxIlpbkypdpUniversity Hospitals St. [facility] Work Phone: Start: 03-26-2024 End: 14-37-8882Qrkmvmb encounter procedureNovant Health [facility] Center Physician GroupBarney [facility] Work Phone: Start: 02-29-2024 End: 70-61-0987nftghtqzyfZTDVOCKCLMM HASSETTNot AvailableStart: 02-26-2024 End: 20-76-6660xqubzpnxtcCYABQWN A FELTERNot AvailableStart: 02-02-2024 End: 96-69-5217rswszazpisExb/[place] Work Phone: Hematology/OncologyComment on above:Malignant neoplasm of prostate (HCC) (Primary Dx)Start: 02-02-2024 End: 03-12-2589Eahkhsi encounter Phong Rajan APRN.DEVULCANIZER CHARGER Work Phone: Hematology/OncologyComment on above:Malignant neoplasm of prostate (HCC) (Primary Dx)Start: 66-22-2597Xsb-patient / Non-visitNovant Health [facility] Physician [facility] Work Phone: Start: 11-23-2023 End: 46-03-2963ibgtfjsflmIkhyglvquUniversity Hospitals St. [facility] Center Work Phone: Start: 11-23-2023 End: 89-94-2447Gvgeatm encounter procedureNovant Health [facility] Physician GroupBarney [facility] Work Phone: Start: 11-02-2023 End: 03-81-1901vkdbbikcdgDsi/[place] Work Phone: Hematology/OncologyComment on above:Malignant neoplasm of prostate (HCC) (Primary Dx)Malignant neoplasm of prostate (HCC) (Primary Dx); Essential hypertension; Coronary artery disease involving [place] heart without angina pectoris, unspecified vessel or lesion type; Type 2 diabetes mellitus without complication, without long-term current use of insulin (HCC); Lesion of skin of right ear; Abdominal discomfortStart: 11-02-2023 End: 75-90-4490Mptqdoj encounter Cecilia Howard APRN.CNP Work Phone: SANDUSKYStart: 96-61-7195Jrj-patient / Non-visit [facility] Physician [facility] Work Phone: Start: 10-20-2023 End: 48-17-2386Aqbmrxf encounter procedureAnthony SCRUGGS [facility] start: 79-61-1601You-patient / Non-visitNovant Health [facility] Physician [facility] Work Phone: Start: 09-28-2023 End: 26-24-4790bazihbktldOOLLQP E FLEMINGNot AvailableStart: 09-12-2023 End: 26-52-4517Zedamjq encounter procedureOn License Of Un[facility] Medical Centermemo Physician Group-[facility] Work Phone: Start: 63-69-0180Jyo-patient / Non-visitAracelis Physician Group-[facility] Work Phone: Start: 64-31-2462Hwdojg flowsheetNatalie A Felter ARCHITECTURAL ASSOCIATE-DEVULCANIZER CHARGER Work Phone: noms SWS DERMStart: 27-33-4583Tdoiie flowsheetNatalie A Felter ARCHITECTURAL ASSOCIATE-DEVULCANIZER CHARGER Work Phone: [facility] SWS DERMStart: 08-28-2023 End: 17-07-0854Rjtqgqx encounter procedureNatalie A Felter ARCHITECTURAL ASSOCIATE-DEVULCANIZER CHARGER Work Phone: noms SWS DERMComment on above:Neoplasm of unspecified behavior of bone, soft tissue, and skin; Actinic keratosisStart: 08-28-2023 End: 22-73-3673totputmsymHDZTDZY A FELTERNot AvailableStart: 08-24-2023 End: 69-42-8431gckmfsleumUhlcwpuf Ball Other [employer] Other Start: 73-84-1114Xxuiuwo encounter procedureBenjamin BallGREYG [facility] ClinicStart: 08-04-2023 End: 99-45-6006ntytqsgiwwCzriwsgo Ball Other [employer] Other Start: 58-37-6438Htquhujuw encounterBenjamin BallFPG [facility] ClinicStart: 87-02-0555Qwgtdjhmw encounterBenjamin BallFPG [facility] ClinicStart: 06-05-2023 End: 43-02-4505nxoewkzvosTUHWIQ H [facility] [employer] Other Start: 05-30-2023 End: 89-11-9971oscbzpmqueKuqimcjb Ball Other [employer] Other Start: 94-03-2606Nohbla outpatient visit 15 minutes [facility] ClinicStart: 05-01-2023 End: 60-59-0027qnedwikkrmDicrbwvw Ball Other [employer] Other Start: 84-17-5687Uqveyi outpatient visit 15 minutes [facility] ClinicStart: 28-94-5077Sjvdokmil encounterBenjajennifer [facility] Medical ClinicStart: 04-27-2023 End: 54-77-5493qbqyvasexgKqm/[place] Work Phone: Hematology/OncologyComment on above:Malignant neoplasm of prostate (HCC) (Primary Dx)Malignant neoplasm of prostate (HCC) (Primary Dx); Coronary artery disease involving [place] heart without angina pectoris, unspecified vessel or lesion type; Essential hypertension; Type 2 diabetes mellitus without complication, without long-term current use of insulin (HCC)Start: 04-27-2023 End: 83-12-2250Sgmfgnf encounter procedureChristo Howard APRN.CNP Work Phone: SANDUSKYStart: 04-25-2023 End: 45-21-6120gkpdnrxfhsFyzyhqeu Ball Other [employer] Other Start: 66-68-6219Dkwanehff encounterBenalfie Fall Medical ClinicStart: 04-18-2023 End: 11-94-3848hscpuazmuyLcmclrzd Ball Other [employer] Other Start: 73-74-8010Qglgzhqky encounterBenalfie Fall Medical ClinicStart: 04-17-2023 End: 71-54-2376Mxkqsxg encounter procedureAnthony SCRUGGS [facility] start: 04-12-2023 End: 86-57-4495kkoodkkccwCofycohp Ball Other [employer] Other Start: 06-68-5528Wlxyhwxde encounterBenjamin BallFPG [facility] ClinicStart: 04-06-2023 End: 42-32-4807shwoqalcpcUzqhkmoo Ball Other [employer] Other Start: 28-30-7315Dfbzsaxca encounterBenjamin BallFPG [facility] ClinicStart: 04-05-2023 End: 37-03-5882qqpephljkrDhabjpsh Ball Other [employer] Other Start: 54-64-1773Lkhfqk outpatient visit 15 minutes Jamar BallFPG [facility] ClinicStart: 41-69-5722Kwhupmimh encounterBenjamin BallFPG [facility] ClinicStart: 03-15-2023 End: 03-73-1005mbhhhwbnfeAkdauqth Ball Other [employer] Other Start: 39-32-5482Zkzddi outpatient visit 25 minutes Jamar BallFPG [facility] ClinicStart: 02-05-2023 End: 36-32-6888jyrwgereviFcjmkxmt Ball Other [employer] Other Start: 37-58-5937Dwofpyqql encounterBenjamin BallFPG [facility] ClinicStart: 02-02-2023 End: 76-19-4777nkxvnoejceCig/[place] Work Phone: Hematology/OncologyComment on above:Malignant neoplasm of prostate (HCC) (Primary Dx)Start: 02-02-2023 End: 71-45-0687Lgtqhvs encounter Jovan Esqueda MD Work Phone: SANDUSKYStart: 11-15-2022 End: 84-57-1033ahmgvfwjdtZfqwisph Ball Other [employer] Other Start: 56-51-0804Otvjftocn by computer [facility] ClinicStart: 11-11-2022 End: 60-59-5845qxzjvsqxnmYvufpwer Ball Other [employer] Other Start: 36-60-8334Tsmvqeheo by computer linkJamar Fall Medical ClinicStart: 11-10-2022 End: 24-53-1337jzoaduxvmzYoj/[place] Work Phone: Hematology/OncologyComment on above:Malignant neoplasm of prostate (HCC) (Primary Dx)Malignant neoplasm of prostate (HCC) (Primary Dx); Coronary artery disease involving [place] heart without angina pectoris, unspecified vessel or lesion type; Essential hypertension; Type 2 diabetes mellitus without complication, without long-term current use of insulin (HCC)Start: 11-10-2022 End: 10-58-0365Lsylwvu encounter procedureChristo Howard APRN.CNP Work Phone: SANDUSKYStart: 10-25-2022 End: 01-08-4708lzodupohmlMQ ANTHONY SCRUGGS .Facility:C6Puytc: 09-16-2022 End: 00-36-0430pynriptgcqKllucnzg Ball Other [employer] Other Start: 14-85-6508Hdnbft outpatient visit 15 minutes Jamar [facility] ClinicStart: 09-09-2022 End: 75-56-5371hcwjbzoqrlHvuzvxhp Ball Other [employer] Other Start: 84-64-2347Azptayi encounter procedureJamar Fall Medical ClinicStart: 09-05-2022 End: 51-49-4591bztxktofltKG NONE LISTED REQUESTFacility:I9Saaxw: 08-11-2022 End: 82-65-3929gyuwxkijnbNmx/[place] Work Phone: Hematology/OncologyComment on above:Malignant neoplasm of prostate (HCC) (Primary Dx)Malignant neoplasm of prostate (HCC) (Primary Dx); Bone metastasis (HCC); Coronary artery disease involving [place] heart without angina pectoris, unspecified vessel or lesion type; Essential hypertension; Type 2 diabetes mellitus without complication, without long-term current use of insulin (HCC)Start: 08-11-2022 End: 95-51-3228Alxtlub encounter procedureMarco A Esqueda MD Work Phone: SANDUSKYStart: 07-21-2022 End: 96-34-2468sglodcigoyUW [employer] Other Start: 29-42-5186Lbvfit outpatient visit 15 minutes [facility]ar [facility]Our [facility] ClinicStart: 31-77-6986Jeslwdh encounter procedure Jamar Juan [facility]Our [facility] ClinicStart: 28-51-2925Ynaoeuzac encounterBenjajennifer [facility] ClinicStart: 05-27-2022 End: 05-08-9538wryowfkhsaQZ NONE LISTED REQUESTFacility:P0Jlvru: 05-13-2022 End: 37-83-0261Nateefq encounter procedureAnthony SCRUGGS [facility] start: 05-12-2022 End: 97-73-1899Esbppip encounter procedureZach Khan MD Work Phone: Radiation OncologyComment on above:Malignant neoplasm of prostate (HCC) (Primary Dx)Start: 05-12-2022 End: 61-87-1401rjvhteuspwTka/[place] Work Phone: Hematology/OncologyComment on above:Malignant neoplasm of prostate (HCC) (Primary Dx)Start: 05-05-2022 End: 42-08-2198uroyodpnuyNO ANTHONY SCRUGGS .Facility:Q6Tvmkw: 05-02-2022 Telephone encounterChristo Howard APRN.CNP Work Phone: Hematology/OncologyComment on above:Lab OrdersStart: 04-27-2022 End: 10-54-5833goapcpmanoODBNSZV BOESFacility:K7Mvhhs: 02-17-2022 End: 00-07-0088pokiyhvsepXdlga R Murphy MD Work Phone: Hematology/OncologyComment on above:Malignant neoplasm of prostate (HCC) (Primary Dx); Bone metastasis (HCC)Start: 02-17-2022 End: 11-14-7503Nyupsth encounter Jovan Esqueda MD Work Phone: SANDUSKYStart: 01-25-2022 End: 73-33-0652zgtwgkqstlJI NONE LISTED REQUESTFacility:V8Olvea: 12-06-2021 Telephone encounterClementine Aguilar RN Work Phone: Hematology/OncologyComment on above:Care Coordination (Refill Question)Start: 11-18-2021 End: 55-65-6506vucydzuwqiZwn/[place] Work Phone: Hematology/OncologyComment on above:Malignant neoplasm of prostate (HCC) (Primary Dx)Start: 11-11-2021 End: 89-27-2454stiygauiaiZbohyYoana Esqueda MD Work Phone: Hematology/OncologyComment on above:Malignant neoplasm of prostate (HCC) (Primary Dx); Bone metastasis (HCC)Start: 11-11-2021 End: 11-04-5503Uebvfhh encounter Jovan Esqueda MD Work Phone: SANDUSKYStart: 78-63-4748Nwbekygne encounterClementine Aguilar RN Work Phone: Hematology/OncologyComment on above:Care Coordination (Medication Update)Start: 01-64-4071Qfkwyogee encounterClementine Aguilar RN Work Phone: Hematology/OncologyComment on above:Care Coordination (Medication Start Date - Enzalutamide)Start: 11-08-2021 End: 09-29-2352Rxgwsyx encounter Magi SCRUGGS [facility] start: 11-05-2021 End: 45-26-7049xijptgtnesEM MARCO A ESQUEDAFacility:J6Zprtm: 76-70-9884kvblwxmfzf Clementine Aguilar RN Work Phone: Hematology/OncologyComment on above:Oral Anti-cancer Agent Education (Enzalutamide)Start: 55-65-7641Rwujetird encounterAida Luo [facility] Work Phone: Hematology/OncologyComment on above:Medication Update (Xtandi free drug)Care Coordination (Covid Vaccine)Start: 16-44-7198Nyzgsfgyd encounterMarco A Esqueda MD Work Phone: Hematology/OncologyComment on above:Lab OrdersStart: 66-79-3179Yvhknskmo encounterClementine Aguilar RN Work Phone: Hematology/OncologyComment on above:Care Coordination (Testosterone Results)Start: 26-31-9427Jwcxpdikw encounterClementine Aguilar RN Work Phone: Hematology/OncologyComment on above:Medication Question (Lupron Start Date)Opened In ErrorMedication Authorization (Xtandi) Start: 82-86-5356Ptiwx abstractingMarco A Esqueda MD Work Phone: Hematology/OncologyStart: 02-99-4584Pmtskigkg Gayatri Esqueda MD Work Phone: Hematology/OncologyComment on above:Lab OrdersStart: 20-03-4154Dsscs health examinationBenjamin Ball Other [employer] Other Procedures DateProcedureProcedure DetailPerforming ClinicianStart: 71-32-6540HWGOGUTUXQX SKIN LESIONNatalie A Felter ARCHITECTURAL ASSOCIATE-DEVULCANIZER CHARGER Work Phone: Start: 85-29-0039JIVWFRDCBAC SKIN LESIONNatalie A Felter ARCHITECTURAL ASSOCIATE-DEVULCANIZER CHARGER Work Phone: Start: 33-96-3849KZHF / NAIL BIOPSYNatalie A Felter ARCHITECTURAL ASSOCIATE-DEVULCANIZER CHARGER Work Phone: Start: 80-95-5697Mbcciezzywkzz of median nervePatrick [employer] Start: 26-97-9643VMZ screeningDR JAMAR BALLComment on above:Performed By: #### PSAD #### [facility] [address] [place], [place] [address] Dr. Bharati AguiarStart: 70-85-4322FVD screeningDR JAMAR BALLComment on above: Performed By: #### PSAD ####[facility] [address] [place], [place] [address]StDr. Bharati AguiarStart: 89-79-4517Fdzsk depression screening assessmentMarco A Esqueda MD Work Phone: Start: 73-80-6335Khedm depression screening assessment lCementine Aguilar RN Work Phone: Start: 33-21-5664Nahng depression screening assessment Marco A Esqueda MD Work Phone: Start: 15-12-0471Oqnzumbvezhqikje procedurePrapstrata Comment on above:Started on 01/2018 completed 03/30/18 Start: 73-53-9456AatmikdnvlQawfgeu WATERS Start: 49-48-5787Apmfclsvc for malignant neoplasm of colonJamar Fall Other Start: 15-91-7926Cgnrpor prostatectomyPaPlanZapnataliya [employer] Start: 41-80-6454Lcc-surgery evaluationBenate Fall Other Start: 11-65-2961Fhjurmaedxuj cardiovascular examinationBenate Fall Other Start: 46-83-7580Jnowiyym artery bypass graftPrapstrata Start: 50-41-7828Pkrbrbqhkom biopsy of prostate using ultrasound guidancePeppercorn Start: 56-13-8028Lsmwdszjca studiesPaapstrata Start: 10-22-5566ZowtaxjbbyBgndtce WATERS Start: 17-33-6306WqnhwebuamMeormdh WATERS Start: 73-12-0752CsxbxmwecnWxgonki WATERS appendectomyPeppercorn ColonoscopyPeppercorn Depression screeningBenjamin NOLA [employer] Other Plan of Treatment DateCare ActivityDetailAuthorStart: 66-12-0461Ejfdi microalbumin profile DTaP,Tdap,Td Vaccine (6 - Td or Tdap)[facility]: 43-97-0465Yjxtmhqd ScreeningDiabetes ScreeningMagruder Hospitaltart: 87-53-2738Jxrqvxju Screening Diabetes ScreeningMagruder Hospitaltart: 10-14-9795Efwoxjap ScreeningDiabetes ScreeningMagruder Hospitaltart: 33-58-6770Gwiggpgp ScreeningDiabetes Screening [facility]: 41-98-3362Ywamaxrw ScreeningDiabetes ScreeningMagruder Hospitaltart: 02-26-2026 End: 24-78-6952Ljmstgx encounter xfndeznoe32/13/2026 10:25 AM EDT Office Visit [facility] [address] [phone] Long Boo, ARCHITECTURAL ASSOCIATE-DEVULCANIZER CHARGER [address] [place] [address] [facility] DermatologyStart: 86-47-7621QKZLEXLY SCREENDIABETES SCREENMagruder Hospitaltart: 11-10-2025 DIABETES SCREENDIABETES SCREENMagruder Hospitaltart: 90-40-2818XJKXLQZU SCREEN DIABETES SCREENMagruder Hospitaltart: 89-26-6346CQYYBVMC SCREENDIABETES SCREEN [facility]: 82-19-8562Auzvstvjt vaccinationInfluenza Vaccine (#1)[facility] HealthcareStart: 02-25-2025 End: 51-01-4888Mafhzxw encounter oxnoievdj08/12/2025 10:20 AM EDT Office Visit [facility] [address] [place], [id number] Long Boo, ARCHITECTURAL ASSOCIATE-DEVULCANIZER CHARGER [address] [place] [address] ArrivedNOMS [facility] [place] [facility] Comment on above:ArrivedStart: 37-13-7804XYSHQNSN SCREENDIABETES SCREENMagruder Hospitaltart: 79-89-9252MHRZHFBV SCREENDIABETES [facility]: 11-07-2024 End: 49-95-4032Czcieu-up encounterHematology/OncologyComment on above:3 month lab follow up with xgeva injStart: 11-06-2024 End: 95-31-6066BIO W Auto Differential panel - BloodCOMPLETE BLOOD COUNT AND DIFFERENTIAL Lab Routine Malignant neoplasm of prostate (HCC) Essential hyp ertension Coronary artery disease involving [place] heart without angina pectoris, unspecified vessel or lesion type Type 2 diabetes mellitus without complication, without long-term current use of insulin (HCC) Expected: 11/06/2024, Expires: 02/05/2025[facility] Work Phone: Comment on above:Expected: 11/06/2024, Expires: 02/05/2025Start: 11-06-2024 End: 86-25-3967Lldyjxlezjyes metabolic 2000 panel - Serum or PlasmaCOMPREHENSIVE METABOLIC PANEL Lab Routine Malignant neoplasm of prostate (HCC) Essential hypertension Coronary artery disease involving [place] heart without angina pectoris, unspecified vessel or lesion type Type 2 diabetes mellitus without complication, without long-term current use of insulin (HCC) Expected: 11/06/2024, Expires: 02/05/2025[facility] ClinicComment on above:Expected: 11/06/2024, Expires: 02/05/2025Start: 11-06-2024 End: 45-30-1226Bvwwungb specific Ag [Mass/volume] in Serum or PlasmaPROSTATE- SPECIFIC ANTIGEN DIAGNOSTIC Lab Routine Malignant neoplasm of prostate (HCC) Essential hypertension Coronary artery disease involving [place] heart without angina pectoris, unspecified vesselor lesion type Type 2 diabetes mellitus without complication, without long-term current use of insulin (HCC) Expected: 11/06/2024, Expires: 02/05/2025[facility] ClinicComment on above:Expected: 11/06/2024, Expires: 02/05/2025Start: 10-31-2024 End: 90-21-8034Iehalor encounter xenufboxf13/17/2025 9:00 AM EDT Office Visit [facility] [address] [place] [address] labVa [facility] LaboratoryComment on above:labStart: 44-13-1632Pcuhz-19 Vaccine ()Covid-19 Vaccine ()[facility]: 08-08-2024 End: 99-38-4568Ibeqmb-up encounterHematology/OncologyComment on above:3 month lab follow up with xgeva injStart: 08-01-2024 End: 88-63-3673Zigecav encounter /16/2025 9:00 AM EST Office Visit [facility] [address] [place] [address] 3 month [facility] Comment on above:3 month labsStart: 99-05-0716Usilwtz Directive Discussion Advance Directive DiscussionMagruder Hospitaltart: 05-09-2024 End: 09-00-2323Osnros-up encounterHematology/OncologyComment on above:3 month lab follow up with xgeva injStart: 05-07-2024 End: 04-11-7283Mnhposu encounter ehiuyczib57/22/2024 9:00 AM EDT Office Visit [facility] [address] [place] [address] 3 month lab follow up with xgeva injNortAscension [facility]ess [facility] LaboratoryComment on above:3 month lab follow up with xgeva inj Start: 05-03-2024 End: 97-72-2862Omqhjim encounter irdpxmfbn75/18/2024 9:00 AM EDT Office Visit [facility] [address] [place] [address] 3 month lab follow up with xgeva injNortAscension [facility]ess [facility] Hospital LaboratoryComment on above:3 month lab follow up with xgeva inj Start: 04-29-2024 End: 83-35-6224FGU W Auto Differential panel - BloodCOMPLETE BLOOD COUNT AND DIFFERENTIAL Lab Routine Malignant neoplasm of prostate (HCC) Expected: , Expires: 07/29/2024[facility] Work Phone: Comment on above:Expected: 04/29/2024, Expires: 07/29/2024Start: 04-29-2024 End: 38-91-5808Laksvthtoeadn metabolic 2000 panel - Serum or PlasmaCOMPREHENSIVE METABOLIC PANEL Lab Routine Malignant neoplasm of prostate (HCC) Expected: 04/29/2024, Expires: 07/29/2024[facility] ClinicComment on above:Expected: 04/29/2024, Expires: 07/29/2024Start: 04-29-2024 End: 86-10-8558Nfegxodj specific Ag [Mass/volume] in Serum or PlasmaPROSTATE- SPECIFIC ANTIGEN DIAGNOSTIC Lab Routine Malignant neoplasm of prostate (HCC) Expected: 04/29/2024, Expires: 07/29/2024[facility] ClinicComment on above: Expected: 04/29/2024, Expires: 07/29/2024Start: 28-68-8377Mrqbn-19 Vaccine ()Covid-19 Vaccine ()[facility]: 86-01-6936Gwiwbtadu vaccinationInfluenza Vaccine (#1)[facility]: 02-26-2024 End: 85-89-8271Uuvkvqt encounter /12/2024 10:10 AM EDT Office Visit [facility] [address] [place] [address] Long Boo APRN-DEVULCANIZER CHARGER [address] [place] [address] [facility] DERMStart: 11-03-2023 End: 39-97-7710VHT W Auto Differential panel - BloodCOMPLETE BLOOD COUNT AND DIFFERENTIAL Lab Routine Malignant neoplasm of prostate (HCC) Essential hyp ertension Coronary artery disease involving [place] heart without angina pectoris, unspecified vessel or lesion type Type 2 diabetes mellitus without complication, without long-term current use of insulin (HCC) Lesion of skin of right ear Abdominal discomfort Expected: 11/03/2023, Expires: 02/02/2024 [facility] Work Phone: Comment on above:Expected: 11/03/2023, Expires: 02/02/2024Start: 11-03-2023 End: 03-25-7760Foqtwswbebdbp metabolic 2000 panel - Serum or PlasmaCOMPREHENSIVE METABOLIC PANEL Lab Routine Malignant neoplasm of prostate (HCC) Essential hypertension Coronary artery disease involving [place] heart without angina pectoris, unspecified vessel or lesion type Type 2 diabetes mellitus without complication, without long-term current use of insulin (HCC) Lesion of skin of right ear Abdominal discomfort Expected: 11/03/2023, Expires: 02/02/2024 [facility] Work Phone: Comment on above:Expected: 11/03/2023, Expires: 02/02/2024Start: 11-03-2023 End: 36-17-5251Uvbquugl specific Ag [Mass/volume] in Serum or PlasmaPROSTATE- SPECIFIC ANTIGEN DIAGNOSTIC Lab Routine Malignant neoplasm of prostate (HCC) Essential hypertension Coronary artery disease involving [place] heart without angina pectoris, unspecified vesselor lesion type Type 2 diabetes mellitus without complication, without long-term current use of insulin (HCC) Lesion of skin of right ear Abdominal discomfort Expected: 11/03/2023, Expires: 02/02/2024 [facility] Work Phone: Comment on above:Expected: 11/03/2023, Expires: 02/02/2024Start: 08-28-2023 End: 15-93-4519Ayymjfv encounter wimjyqvfl91/12/2024 11:25 AM EST Office Visit [facility] [address] [place] [address] [employer] Boo ARCHITECTURAL ASSOCIATE-DEVULCANIZER CHARGER [address] [place] [address] ArrivedNOMS SWS DERMComment on above: ArrivedStart: 07-28-2023 End: 84-62-9384YZA W Auto Differential panel - BloodCBC + DIFF Lab Routine Malignant neoplasm of prostate (HCC) Coronary artery disease involving [place] heart without angina pectoris, unspecified vessel or lesion type Essential hypertension Type 2 diabetes mellitus without complication, without long-term current use of insulin (HCC) Expected: 07/28/2023, Expires: 09/27/2023[facility] Work Phone: Comment on above:Expected: 07/28/2023, Expires: 09/27/2023Start: 07-28-2023 End: 92-12-4436Ktwdrylizpqdh metabolic 2000 panel - Serum or PlasmaCOMP METABOLIC PANEL Lab Routine Malignant neoplasm of prostate (HCC) Coronary artery disease involving [place] heart without angina pectoris, unspecified vessel or lesion type Essential hypertension Type 2 diabetes mellitus without complication, without long-term current use of insulin (HCC) Expected: 07/28/2023, Expires: 09/27/2023[facility] Work Phone: Comment on above:Expected: 07/28/2023, Expires: 09/27/2023Start: 07-28-2023 End: 70-63-7586Jjskezon specific Ag [Mass/volume] in Serum or Plasma PSA/PROSTSPECAG DIAG Lab Routine Malignant neoplasm of prostate (HCC) Coronary artery disease involving [place] heart without angina pectoris, unspecified vessel or lesion type Essential hypertension Type 2 diabetes mellitus without complication, without long-term current use of insulin (HCC) Expected: 07/28/2023, Expires: 09/27/2023[facility] Work Phone: Comment on above:Expected: 07/28/2023, Expires: 09/27/2023Start: 05-74-8265Gzlznxy Directive DiscussionAdvance Directive DiscussionMagruder Hospitaltart: 52-60-4435Wqexjkshvt Health ScreeningBehavioral Health ScreeningMagruder Hospitaltart: 26-37-0973Tkpgv microalbumin profile [facility]: 05-03-2023 End: 84-10-3457Rlbdq metabolic 2000 panel - Serum or PlasmaBASIC METABOLIC PNL Lab Routine Malignant neoplasm of prostate (HCC) Expected: 05/03/2023 (Approxima te), Expires: 07/03/2023[facility] Work Phone: Comment on above:Expected: 05/03/2023 (Approximate), Expires: 07/03/2023Start: 05-03-2023 End: 85-39-8435CEI W Auto Differential panel - BloodCBC + DIFF Lab Routine Malignant neoplasm of prostate (HCC) Expected: 05/03/2023 (Approximate), Expi res: 07/03/2023[facility] Work Phone: Comment on above:Expected: 05/03/2023 (Approximate), Expires: 07/03/2023Start: 05-03-2023 End: 08-62-8038Sremkcyh specific Ag [Mass/volume] in Serum or Plasma PSA/PROSTSPECAG DIAG Lab Routine Malignant neoplasm of prostate (HCC) Expected: 05/03/2023 (Approximate), Expires: 07/03/2023[facility] Work Phone: Comment on above:Expected: 05/03/2023 (Approximate), Expires: 07/03/2023Start: 05-03-2023 End: 11-31-2397Aewzanfglffc [Mass/volume] in Serum or PlasmaTESTOSTERONE TOTAL Lab Routine Malignant neoplasm of prostate (HCC) Expected: 05/03/2023 (Approximate), Expires: 07/03/2023[facility] Work Phone: Comment on above:Expected: 05/03/2023 (Approximate), Expires: 07/03/2023Start: 60-07-6048Guozm-19 Vaccine ()Covid- 19 Vaccine ()[facility]: 89-28-3368Lcscoyijr vaccinationMagruder Hospitaltart: 25-96-4147Pifwa depression screening assessmentDEPRESSION SCREENINGMagruder Hospitaltart: 02-09-2023 End: 64-65-4631AUF W Auto Differential panel - BloodCBC + DIFF Lab Routine Malignant neoplasm of prostate (HCC) Coronary artery disease involving [place] heart without angina pectoris, unspecified vessel or lesion type Essential hypertension Type 2 diabetes mellitus without complication, without long-term current use of insulin (HCC) Expected: 02/09/2023, Expires: 04/11/2023[facility] Work Phone: Comment on above:Expected: 02/09/2023, Expires: 04/11/2023Start: 02-09-2023 End: 76-82-1616Phbowkfpsfrpy metabolic 2000 panel - Serum or PlasmaCOMP METABOLIC PANEL Lab Routine Malignant neoplasm of prostate (HCC) Coronary artery disease involving [place] heart without angina pectoris, unspecified vessel or lesion type Essential hypertension Type 2 diabetes mellitus without complication, without long-term current use of insulin (HCC) Expected: 02/09/2023, Expires: 04/11/2023[facility] Work Phone: Comment on above:Expected: 02/09/2023, Expires: 04/11/2023Start: 02-09-2023 End: 87-30-6027Bxzwxyxr specific Ag [Mass/volume] in Serum or Plasma PSA/PROSTSPECAG DIAG Lab Routine Malignant neoplasm of prostate (HCC) Coronary artery disease involving [place] heart without angina pectoris, unspecified vessel or lesion type Essential hypertension Type 2 diabetes mellitus without complication, without long-term current use of insulin (HCC) Expected: 02/09/2023, Expires: 04/11/2023[facility] Work Phone: Comment on above:Expected: 02/09/2023, Expires: 04/11/2023Start: 29-81-7112Ysqck depression screening assessmentDEPRESSION SCREENINGMagruder Hospitaltart: 49-99-9359ZZRDU-19 VACCINE (6 - Moderna series) COVID-19 VACCINE (6 - Moderna series)[facility]: 48-72-6456LWRTOOA DIRECTIVE DISCUSSIONADVANCE DIRECTIVE DISCUSSIONMagruder Hospitaltart: 37-95-1587YUBOCXZRJF ASSESSMENTDEPRESSION ASSESSMENTMagruder Hospitalt[facility]: 83-77-6748Lroza depression screening assessmentDEPRESSION SCREENINGMagruder Hospitalt[facility]: 05-03-2022 End: 38-29-5262BWL W Auto Differential panel - BloodCBC + DIFF Lab Routine Malignant neoplasm of prostate (HCC) Expected: 05/03/2022, Expires: 07/03/2022 [facility] Work Phone: Comment on above:Expected: 05/03/2022, Expires: 07/03/2022tart: 05-03-2022 End: 90-73-5698Ebmxgaxjzyufp metabolic 2000 panel - Serum or PlasmaCOMP METABOLIC PANEL Lab Routine Malignant neoplasm of prostate (HCC) Expected: 05/03/2022, Expires: 07/03/2022[facility] Work Phone: Comment on above:Expected: 05/03/2022, Expires: 07/03/2022tart: 05-03-2022 End: 83-59-6540Tljsckwt specific Ag [Mass/volume] in Serum or Plasma PSA/PROSTSPECAG DIAG Lab Routine Malignant neoplasm of prostate (HCC) Expected: 05/03/2022, Expires: 07/03/2022[facility] Work Phone: Comment on above:Expected: 05/03/2022, Expires: 07/03/2022tart: 41-26-2333Dehgsdbon vaccinationMagruder Hospitaltart: 11-02-2021 End: 62-24-4707AYZ W Auto Differential panel - BloodCBC + DIFF Lab Routine Malignant neoplasm of prostate (HCC) Expected: 11/02/2021, Expires: 01/02/2022 [facility] Work Phone: Comment on above:Expected: 11/02/2021, Expires: 01/02/2022tart: 11-02-2021 End: 40-45-1759Vvfvataydcyjl metabolic 2000 panel - Serum or PlasmaCOMP METABOLIC PANEL Lab Routine Malignant neoplasm of prostate (HCC) Expected: 11/02/2021, Expires: 01/02/2022[facility] Work Phone: Comment on above:Expected: 11/02/2021, Expires: 01/02/2022tart: 51-53-0069BXPXN-19 VACCINE (5 - Booster)COVID-19 VACCINE (5 - Booster)[facility]: 90-63-2820XZNVP-19 VACCINE (4 - Booster for Moderna series)COVID-19 VACCINE (4 - Booster for Moderna series)[facility] Start: 44-27-7730PYVINCY DIRECTIVE DISCUSSIONADVANCE DIRECTIVE DISCUSSION [facility]: 16-82-9171EMKBWBKFYS ASSESSMENTDEPRESSION ASSESSMENT [facility]: 25-12-4536UOZBZ-19 VACCINE (3 - Booster for Moderna series)COVID-19 VACCINE (3 - Booster for Moderna series)[facility]: 19-33-9858DSAGRMSEF AGE 65 AND OVER WITH 5YR LOOKBACK (#1)PNEUMOVAX AGE 65 AND OVER WITH 5YR LOOKBACK (#1)[facility]: 62-29-2813Hbuuf microalbumin profileDTAP,TDAP,TD (1 - Tdap)[facility]: 96-63-1462BYBIKTJU VACCINE (2 of 3)SHINGRIX VACCINE (2 of 3)[facility]: 57-90-8025CGH Vaccine (1 - 1-dose 60+ series)RSV Vaccine (1 - 1-dose 60+ series)[facility]: 41-68-3157IGNTSALR VACCINE (1 of 2)SHINGRIX VACCINE (1 of 2)[facility] Start: 37-68-3840CXHUTOLWT (FIT-DNA)COLOGUARD (FIT-DNA)[facility]: 35-80-6938DazgwkdozjoHNKFTMTMZVJEvhtjmdod ClinicStart: 45-52-3434KNMMJSNIQM CANCER SCREENINGCOLORECTAL CANCER SCREENINGMag[facility]: 24-03-0222DV COLONOGRAPHYCT COLONOGRAPHYMag[facility]: 27-56-9003JPJEYUKY SCREEN DIABETES SCREENMag[facility]uder [facility]: 94-62-9025AEXSM OCCULT BLOODFECAL OCCULT BLOODMag[facility]: 47-79-2818DXHMANVGZYIBWKVFRHXTEOCBEKSaonunnda Clinic Start: 66-13-2777BRJVA SCREENLIPID SCREENMagr[facility]: 02-14-1963 Anxiety ScreeningAnxiety ScreeningMag[facility]: 58-94-6246Nkzxghscsd ScreeningDepression ScreeningMagruder [facility]: 91-04-4751VEUIZRNSR C SCREENINGHEPATITIS C SCREENINGMag[facility]: 71-67-6087Kxytxaejj C screeningHepatitis C ScreeningMarietta Memorial HospitalDermatopathology exam Dermatopathology exam Pathology and Cytology Timed Neoplasm of unspecified behavior of bone, soft tissue, and skin Release Upon Ordering for 1 Occurrences starting 08/28/2023[facility] Work Phone: comment on above:Release Upon Ordering for 1 Occurrences starting 08/28/2023MR Cervical spine WO contrastWadsworth-Rittman HospitalUS ExtremityBaptist Memorial Hospital Immunizations Immunization DateImmunizationNotesCare MubwglcgCslqvyxt52-31-1811viifwiscb, high dose seasonal, preservative-freeBenjamin Ball DO Work Phone: [facility]10-11-2024COVID-19 (MODERNA) 12Y and olderBenjamin Ball DO Work Phone: [facility]10-11-2024RSV, bv, preFa and preFb, pfBenjamin Ball DO Work Phone: [facility]10-10-2024tetanus toxoid, reduced diphtheria toxoid, and acellular pertussis vaccine, adsorbed Jamar Ball DO Work Phone: [facility]09-10-2024influenza, high dose seasonal, preservative-freeWadsworth-Rittman Hospital09-10-2024 influenza virus vaccine, unspecified formulationAtrium Health Steele Creekhumberto Boo ARCHITECTURAL ASSOCIATE-DEVULCANIZER CHARGER Work Phone: [facility] MedicineCdykmazmxf53-35-8490rfarzwqxe virus vaccine, unspecified formulationWadsworth-Rittman Hospital10-16-2023influenza, high dose seasonal, preservative-freeBenjamin Juan David Other [facility] HospitalDiswea54-69-6273hgesumwba nasal, unspecified formulationLab/[place] Work Phone: [facility] HospitalPmyzxt31-42-2335krvmtvrlt, high-dose, quadrivalent vaccine (FLUZONE HIGH DOSE QUADRIVALENT)Lab/[facility] Work Phone: [facility] HospitalLxzyeu25-65-7903pydadzwfp, high dose seasonal, preservative-freeBenjamin Ball Other [facility] HospitalNocjsi51-70-6349fakjlymxp virus vaccine, unspecified formulationLab/[facility] Work Phone: [facility]10-06-2022COVID-19 booster vaccine, age 12+ yr, bivalent (MODERNA) Lab/[facility] Work Phone: [facility] HospitalComment on above:Result Comment: 2023-10-20: MAX9046-79-1364SKDDP-15 Vaccine Moderna - Documentation Purposes OnlyBenjamin Juan David Other [facility] HospitalComment on above:Result Comment: 2023-10-20: TQJ4140-78-8484RRJWI-13 Vaccine Moderna - Documentation Purposes OnlyBenjamin Ball Other [facility] HospitalComment on above:Result Comment: 2023-10-20: OUO0950-67-4711dpikhohxr virus vaccine, split virus (incl. purified surface antigen)Jamar Fall Other [facility] HospitalMcvitb10-58-5810wawczgudf virus vaccine, unspecified formulationWadsworth-Rittman Hospital10-01-2021influenza nasal, unspecified formulationMarco A Esqueda MD Work Phone: [facility] HospitalIqdafj78-24-6696roovjjmha virus vaccine, unspecified formulationPeppercorn [facility] [id number]-04 Vaccine Moderna - Documentation Purposes OnlyBencelsojennifer Fall Other [facility] HospitalPipqmp74-10-7472XYHP-BcB-9 (COVID-19) Ad26 vaccine, recombinantPeppercorn [facility] 02524162-25-2708WERIJ-54 original vaccine, full dose, monovalent (MODERNA)Lab/[facility] Work Phone: [facility] HospitalFxmfsg95-94-9394BJQP-DgM-2 (COVID-19) mRNA- 1273 vaccinePaapstrata [facility] comment on above:Result Comment: pt does not know the dates but states that he is fully saygfqvkin11-98-3295tnazwtqmw virus vaccine, split virus (incl. purified surface antigen)Jamar Juan David Other [facility] HospitalIfqqmd81-27-4127chbretvoi virus vaccine, unspecified formulationWadsworth-Rittman Hospital10-07-2019influenza virus vaccine, split virus (incl. purified surface antigen)Jamar Fall Other [facility] HospitalFlktdb98-79-6036fmmzwxjbe virus vaccine, unspecified formulationWadsworth-Rittman Hospital10-01-2019influenza nasal, unspecified formulationMarco A Esqueda MD Work Phone: [facility] HospitalLkctib80-19-3713gehunf vaccine daly Esqueda MD Work Phone: [facility] HospitalZpyaal21-07-1314fczaks vaccine recombinant Marco A Esqueda MD Work Phone: [facility] HospitalTziutk90-97-0066priiwptya nasal, unspecified formulationMarco A Esqueda MD Work Phone: [facility] HospitalNodxfq23-77-7726UO75 adjuvantLab/[place] Work Phone: [facility] HospitalYljely84-60-8675cqyvdugny nasal, unspecified formulationLab/[place] Work Phone: [facility] HospitalIbajgq15-84-9426rtkrgbzod virus vaccine, split virus (incl. purified surface antigen)Jamar Fall Other [facility] [employer] Other [id number] virus vaccine, unspecified formulationPatricMino Wireless [employer] [facility]09-11-2018Seasonal trivalent influenza vaccine, adjuvanted, preservative Ginny Esqueda MD Work Phone: [facility] HospitalCcisqu91-71-1022ynadfviarjau polysaccharide vaccine, 23 valHubert Esqueda MD Work Phone: [facility] HospitalYhwjpp79-59-8401xmexfzptppbo polysaccharide vaccine, 23 valentBenalfie Fall Other [facility] HospitalPmyauu88-85-2019Rlvvzax 20Benjajennifer Fall Other [facility]11-15-2017influenza nasal, unspecified formulationLab/[place] Work Phone: [facility] HospitalGwkxme76-11-4316tdscbkvds virus vaccine, unspecified formulationPatrick [employer] [facility]11-15-2017influenza, injectable, quadrivalent, preservative Ginny Esqueda MD Work Phone: [facility] HospitalIghmtx19-18-5572zxxzyjrzy nasal, unspecified formulationLab/[place] Work Phone: [facility] HospitalYemenc40-36-7249dkdbtgvza virus vaccine, split virus (incl. purified surface antigen)Jamar Fall Other [facility] [employer] Other 0291798-52-5683psilxweld virus vaccine, unspecified formulationPatiffanynataliya SCRUGGS [facility] Ygfqxvxm99-73-4498zgedshoct, high dose seasonal, preservative-Ginny Esqueda MD Work Phone: [facility] HospitalUfjplz19-82-3791supxndqce nasal, unspecified formulationMarco A Esqueda MD Work Phone: [facility] HospitalGosybu39-24-5078ztqgrxbea virus vaccine, split virus (incl. purified surface antigen)Jamar Fall Other [facility] HospitalHonxjd29-14-4245uqdravtfl virus vaccine, unspecified formulationWadsworth-Rittman Hospital09-15-2016influenza nasal, unspecified formulationMarco A Esqueda MD Work Phone: [facility] HospitalSaxknb52-89-5497plslaprvz nasal, unspecified formulationMarco A Esqueda MD Work Phone: [facility] HospitalLssemk85-17-2411csqhhwcul, seasonal, injectable, preservative freeLab/[place] Work Phone: [facility] HospitalJtishi01-06-3291xmyfuanfuqcj conjugate vaccine, 13 Janis Esqueda MD Work Phone: [facility] HospitalJfwmbv38-96-0796iuugvpxrbcql polysaccharide vaccine, 23 Janis Esqueda MD Work Phone: [facility] HospitalTduzie65-55-2529kyzqkrhif nasal, unspecified formulationLab/[place] Work Phone: [facility] HospitalGrbego47-56-5674nnajvguoj, seasonal, injectable, preservative Ginny Esqueda MD Work Phone: [facility] HospitalTzhbiv18-38-1327qxgfgkbtsp, tetanus toxoids and acellular pertussis vaccine, unspecified formulationMarco A Esqueda MD Work Phone: [facility] HospitalZdmffw03-87-3895knkyklg and diphtheria toxoids, not adsorbed, for adult useMarco A Esqueda MD Work Phone: [facility] HospitalSfataz72-32-9937hkvbhipjr nasal, unspecified formulationMarco A Esqueda MD Work Phone: [facility] HospitalFswvqw56-86-6039hefxqco and diphtheria toxoids, adsorbed, preservative free, for adult use (5 Lf of tetanus toxoid and 2 Lf of diphtheria toxoid)Jamar Fall Other [facility] HospitalCwocyk12-56-4286hatpcr vaccine, liveMarco A Esqueda MD Work Phone: [facility] HospitalPjinwl75-04-6863xhaqmmwnu nasal, unspecified formulationMarco A Esqueda MD Work Phone: [facility] HospitalRblkkl40-03-8731rggbgmklz nasal, unspecified formulationMarco A Esqueda MD Work Phone: [facility] HospitalRtqbyd26-38-7662wueqzgdposhw polysaccharide vaccine, 23 valentBenjamin Ball Other [facility] HospitalEbpdvo11-67-3260xfmaakezuflm polysaccharide vaccine, 23 valHubert Esqueda MD Work Phone: [facility] HospitalKyhcux90-42-0945eoxgnagdyjaj vaccine, unspecified formulationMarco A Esqueda MD Work Phone: [facility] HospitalLlhtuq00-08-3801gsorawgfi nasal, unspecified formulationMarco A Esqueda MD Work Phone: [facility] HospitalGlzzuy50-35-9260lvlexphdfkij polysaccharide vaccine, 23 valentBenjamin Ball Other [facility] HospitalYsyzvs92-64-5890hbfpzkoms nasal, unspecified formulationMarco A Esqueda MD Work Phone: [facility] HospitalSfunpb05-46-8129tkqpvzmwo nasal, unspecified formulationMarco A Esqueda MD Work Phone: [facility] HospitalIdqlxi68-06-5230opcliijkz virus vaccine, whole virusMarco A Esqueda MD Work Phone: [facility] HospitalSvdyjs63-59-5370zfjsfprmse, tetanus toxoids and acellular pertussis vaccine, unspecified formulationBenalfie Fall Other [facility] HospitalNhxumz28-48-3533SN(adult) unspecified formulationMarco A Esqueda MD Work Phone: [facility] HospitalJggzux42-56-5688ngtwubpww nasal, unspecified formulationMarco A Esqueda MD Work Phone: [facility] Payers DatePayer CategoryPayerPolicy [id number] MMO MEDICARE SUPPLEMENT [id number] 2019-Present [phone] [address] [place] [address] [id number]063-03-0380Jxrmtiq 1.2.840.236419.1.13.159.2.7.3.584133.04756-80-6850Nsihyji Health Insurance 1.2.840.0[id number] 2011MedicareMEDICARE MEDICARE A AND B [id number] 2011-Present [phone] [address] [address] [place] [address] [id number] [id number]5 2011Medicare 1.2.840.252991.1.13.159.2.7.3.522843.315 [id number] 2.16.840.4.894368.12715153-61-1356Houc-[id number] 2.16.840.6.84650[id number] 2.16.840.1.836117.3.5[id number] 2.16840.1.573187.3.579.2.67[id number] 2.16840.1.914177.3.579.[id number] 2.840.1.315945.3.57[id number] 2.16840.1.192054.3.579.[id number] 2.840.1.464380.3.57[id number] 2..1.266028.3.579.2.758888-54-0913Jcxovas1346419 2.840.1.993932.3.579.2.802374-28-2150Hlbfpye3602271 2.840.1.125678.3.579.2.201377-97-1626Lgtwkbl962769 2.840.1.398374.3.57[id number] 2..1.955523.3.57[id number] 2.840.1.496372.3.579.2.6[id number] 2.840.1.399918.3.579.[id number] 2.840.1.594756.3.57[id number] 2.840.1.598049.3.579.2.0[id number] 2.16.840.1.978887.3.57[id number] 2..840.1.875608.3.579.2.[id number] 2.16.840.1.8[id number] 2.16.840.1.829466.3.579.2.593Unknown [id number] 2.16.840.1.2[id number] 2.840.1.880096.3.579.2.593 Social History DateTypeDetailFacilityStart: 11-08-2021 End: 02-54-0143Wzadejs smoking status NHISNever smoked tobaccoMarietta Memorial Hospital Start: 10-25-2021 End: 31-06-9641Tuobnrn intakeCurrent drinker of alcohol (finding)[facility]: 25-58-5766Cgobbvj SDOH Alcohol Comment1 day/wkM[facility]etta Memorial Hospital Start: 59-43-6133Lvf Assigned At BirthNot on fileMagruder Hospital[facility]: 10-18-2021 End: 96-56-3878Jjusjcom to SARS-CoV-2 (event)Not sureMarietta Memorial HospitalTobacco smoking statusNeverExec[facility] start: 02-02-2023 End: 74-59-6669Zqp [facility]igned At [facility]MaleExec[facility] start: 62-05-0752Vir Assigned At [facility] HospitaleC[facility] ClinicStart: 01-12-2018 End: 98-00-2961Kdgnife use and exposureSmokeless tobacco non-userMag[facility]uder Hospitalt[facility]: 02-02-2023 End: 09-81-8574Kdbycnr of Social functionMagruder Hospitalt[facility]: 01-41-9334Ykobcu identityIdentifies as male gender (finding)[facility]: 02-11-2022 Sexual orientationHeterosexual (finding)[facility] HospitalHow often to you have a drink containing alcohol?2-3 time sa weekNOMS HealthcareHow many standard drinks containing alcohol do you have on a typical day?1 or 2NOMS HealthcareHow often do you have 6 or more drinks on 1 occasion?NeverNOMN HealthcareStart: 06-04-2023 Alcohol Commentcaffeine intake: more than 4 cups per dayNOMN HealthcareStart: 09-06-2023 End: 94-30-8169Iekgebr smoking status NHISEx-smoker (finding)[facility] 07-24-2014 End: 41-33-5446AshCsch (finding)[facility] Youngstownexual OrientationExec[facility] NEGATED: Highlighted rowStart: NINFHistory of tobacco usePassive smokerM[facility]etta [facility] Hospital Medical Equipment Procedure CodeEquipment CodeEquipment Original TextEquipment IdentifierDates Start: 10-26-2021 End: 96-75-7935Etievpp on above:1 Each once daily. To test blood sugars1 Each once daily. To test blood sugarBlood Sugar Diagnostic (Contour Next Test Strips) stripStart: 04-29-3056Uaffjxt (Lancets,Thin) miscStart: 06-60-7592Iotbt Sugar Diagnostic (Contour Next Test Strips) stripStart: 09-08-2023 End: 32-09-4287Bzytt Sugar Diagnostic (Contour Next Test Strips) stripStart: 56-84-5705Qrxvvue (Lancets,Thin) miscStart: 44-30-9198Siofh Sugar Diagnostic (Contour Next Test Strips) stripStart: 09-08-2023 End: 64-48-1513Aragg Sugar Diagnostic (Contour Next Test Strips) stripStart: 18-44-7458Azaaqxc (Lancets,Thin) miscStart: 55-84-4441Biizg Sugar Diagnostic (Contour Next Test Strips) stripStart: 09-08-2023 End: 07-18-6264Kpfhy Sugar Diagnostic (Contour Next Test Strips) stripStart: 49-53-1577Acbsrqt (Lancets,Thin) miscStart: 88-16-5300Ohhqm Sugar Diagnostic (Contour Next Test Strips) stripStart: 09-08-2023 End: 10-10-2023 Functional Status WdglLmyszmgfqxYaznrrItctidyl89-83-9235Qdikarjjvg StatusN/AExec[facility] of [facility]04-05-2024Functional StatusN/AExec[facility]10-02-2023Functional StatusN/A [facility]10-28-2022Functional StatusN/AExecutive [facility]rology of [facility]02-03-2015Are you deaf, or do you have serious difficulty hearingNo 08/19/2014 10:35 AM Santiago Mills LPN [facility] CenterHhjrgq20-13-4039Qvt you blind, or do you have serious difficulty seeing, even when wearing glassesYes 08/19/2014 10:35 AM Santiago Mills LPN YesMarietta Memorial HospitalOxidsz41-45-2351Hn you have serious difficulty walking or climbing stairsNo 08/19/2014 10:35 AM Santiago Mills LPN [facility]02-03-2015Do you have difficulty dressing or bathingNo 08/19/2014 10:35 AM Santiago Mills LPN [facility] 37-46-6005Zqibout of a physical, mental, or emotional condition, do you have difficulty doing errands alone such as visiting a physician's office or shopping No 08/19/2014 10:35 AM Santiago Mills LPN [facility] Mental Status TyviLlvpbuxbccLudpwsDigtrgch67-83-0169Dcjeppj of a physical, mental, or emotional condition, do you have serious difficulty concentrating, remembering, or making decisionsNo 08/19/2014 10:35 AM Santiago Mills LPN No [facility] Clinical Notes 07-17-2014 to 05-22-2025 Note Date & RovrZsdsUewziccw26-23-9360 NoteHNO ID: [id number] Author: CHARY SHERMAN APRN.DEVULCANIZER CHARGER Service: ? Author Type: Nurse Practitioner Type: Progress Notes Filed: 05/22/2025 15:33 Note Text: NAME: Pablo Felix CLINIC NO.: [id number] DATE OF SERVICE: May 22, 2025 (Naveen) Some elements in this clinic note that are critical to medical decision making have been carefully reviewed and included from a prior clinic note dated: February 20, 2025 (Denice) Referring Provider: RADHA Additional Clinicians involved in Pablo Felix's care: Dr. Jamar Fall, Dr. Anthony Scruggs, Dr. 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 Stable on current medications. Continue [...] HISTORY: Reverse Chronological Order 11/05/2021 CT chest/abdomen/pelvis ([facility]) Several sclerotic lesions consi (more content not included)...[facility]09-21-2025 NotePlease let him know his [...] into causes of his shortness of breath. Thanks![facility]09-15-2025 Hospital Discharge instructions Patient Education 03/31/2025 [...] advanced cancer. Where to find more information [place] [employer]: www.cancer.org National Cancer [place]: www.cancer.gov Contact a health care provider if: [...] provider. Document Revised: 10/14/2021 Document Reviewed: 10/14/2021 [employer] Patient Education 2023 [employer]. Follow Up Care 10/07/2024 10:02:12 With:KAEL JAMES, Anthony Lee, URL Address: [address] [place] [address] When: Unknown Comments:6 mos w/ Yonis KHAN [facility] 09-15-2025 NotePatient Education Oncology Hormone Suppression Therapy [...] cancer. Where to find more information ??? [place] [employer]: www.cancer.org ??? National Cancer [place]: www.cancer.gov Contact a health care provider if: [...] are confused. ??? You (more content not included)...[facility]09-04-2025 Note Cardiovascular Medicine [facility] SUBJECTIVE Chief Complaint Patient presents with Coronary Artery Disease Denies chest pain and SOB. No recent testing. Valve Disorder Denies lightheadedness and palpitations. Hypertension Had labs in January 2025. Hyperlipidemia No recent lipid panel. [facility]. Pablo Felix is [...] graft without angina Coronary artery disease involving [place] coronary artery of [place] heart without ang (more content not included)...[facility]08-12-2025 History of Present illness Narrative* Long Boo, ROCHELLE-DEVULCANIZER CHARGER - 02/25/2025 10:20 AM EDT Skin Check [...] Left Posterior Neck, Left Preauricular Area, Left Sikhism, Left Temporal Scalp, Right Forehead, Right Parotid Area, Right Superior Bivalve (2) Erythematous scaly papules Patient was counseled [...] limited to risks of scarring, darker or director employee safety and health pigmentary changes, recurrence, incomplete removal and infection. 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 [...] 1 year, skin check documented in this encounterFreeman Orthopaedics & Sports MedicineJxhvoofmfp57-86-3635 NoteHNO ID: [id number] Author: SAUL TRACEY MD Service: ? Author Type: Physician Type: Progress Notes Filed: 02/20/2025 10:48 Note Text: NAME: Pablo Felix CLINIC NO.: [id number] DATE OF SERVICE: February 20, 2025 (Denice) Some elements in this clinic note that are critical to medical decision making have been carefully reviewed and included from a prior clinic note dated: 11/07/2024 (Dheeraj) Referring Provider: RADHA Additional Clinicians involved in Pablo Felix's care: Dr. Jamar Fall, Dr. Anthony Scruggs, Dr. Khan, [facility] Cardiology DIAGNOSIS: Metastatic prostate cancer CASE SUMMARY / ASSESSMENT: 80 year old man with. 1. Metastatic prostate cancer (HCC) - ICD9: 185, ICD10: C61 (primary diagnosis) The patient was diagnosed with early-stage high-grade prostate cancer in June 2014 (TRUS biopsy 07/02/2014). He underwent a radical prostatectomy on 11/05/2014. Pathology consistent with stage IIIC (pT2b, N0, M0), Cerulean 5+4 equal 9. 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 Stable on current medications. Continue [...] injections. - Continue current (more content not included)...[facility] 11-06-2024 NoteHNO ID: [id number] Author: MARCO A ESQUEDA MD Service: ? Author Type: Physician Type: Progress Notes Filed: 11/07/2024 14:08 Note Text: PATIENT NAME: Pablo Felix DATE: 11/07/2024 PRIMARY CARE PHYSICIAN: Dr. Jamar Fall OTHER PHYSICIANS: Dr. Anthony Scruggs, Dr. Khan, [facility] Cardiology Portions of this encounter [...] mg 24 hr tablet Take by mouth. Kiubthvockzwj-Uexmyvwp-Jzhwrd (MULTIVITAMIN 50 PLUS) tab Take 1 tablet [...] Radical retropubic prostatectomy and bilateral pelvic lymphadenectomy ([facility]) Poorly differentiated prostatic adenocarcinoma of left [...] 1.58 10/25/2021 2.64 12/15 (more content not included)...[facility]03-24-2025 Note Patient Education Oncology Hormone [...] cancer. Where to find more information ??? [place] [employer]: www.cancer.org ??? [place] Cancer [place]: www.cancer.gov Contact a health care provider if: [...] are confused. ??? You (more content not included)...[facility]01-22-2025 Note HNO ID: [id number] Author: CHRISTO HOWARD APRN.DEVULCANIZER CHARGER Service: ? Author Type: Nurse Practitioner Type: Progress Notes Filed: 08/08/2024 12:09 Note Text: PATIENT NAME: Pablo Felix DATE: 08/08/2024 PRIMARY CARE PHYSICIAN: Dr. Jamar Fall OTHER PHYSICIANS: Dr. Anthony Scruggs, Dr. Khan, [facility] Cardiology Portions of this encounter [...] mg 24 hr tablet Take by mouth. Lvqgyemrkofhd-Kckkyqay-Nsvckz (MULTIVITAMIN 50 PLUS) tab Take 1 tablet [...] Radical retropubic prostatectomy and bilateral pelvic lymphadenectomy ([facility]) Poorly differentiated prostatic adenocarcinoma of left [...] 07/19/2021 1.58 10/25/2021 2.6 (more content not included)...[facility]01-22-2025 History of Present illness Narrative* Christo Howard, ROCHELLE.DEVULCANIZER CHARGER - 08/07/2024 10:42 AM EST PATIENT NAME: Pablo Felix DATE: 08/08/2024 PRIMARY CARE PHYSICIAN: Dr. Jamar Fall OTHER PHYSICIANS: Dr. Anthony Scruggs, Dr. Khan, [facility] Cardiology Portions of this encounter [...] mg 24 hr tablet Take by mouth. Didnezxgihbqe-Kyftvoer-Fonkzr (MULTIVITAMIN 50 PLUS) tab Take 1 tablet [...] Radical retropubic prostatectomy and bilateral pelvic lymphadenectomy ([facility]) Poorly differentiated prostatic adenocarcinoma of left [...] 08/01/2024 0.19 RADIOLOGY/OTHER STUDIES: 11/05/2021 CT chest/abdomen/pelvis ([facility]) Several sclerotic lesions consistent with metastatic disease. No evidence of visceral organ involvement or lymphadenopathy. 11/05/2021 Bone scan ([facility]) Multifocal osseous metastasis including the left femur at the lesser trochanter, right pubis symphysis, multiple ribs bilaterally. 01/22/2018 Nuclear bone scan ([facility]) New focal increased activity left frontal bone, left T8 vertebral body. 01/22/2018 MRI pelvis ([facility]) 4.5 cm area of T2 signal in the prostate bed. 07/24/2014 CT abdomen/pelvis ([facility] Diffuse prostatic enlargement with indentation of the bladder base. Incidental 2.5 x 1 cm exophytic hypodense lesion adjacent to the pancreatic body. ASSESSMENT/PLAN: 1. Metastatic prostate cancer (HCC) - ICD9: 185, ICD10: C61 (primary diagnosis) The patient was diagnosed with early-stage high-grade prostate cancer in June 2014 (TRUS [id number]/02/2014). He underwent a radical prostatectomy on 11/05/2014. [...] 414.01, ICD10: I25.10 Status post CABG 08/17/2014 ([facility]). Stable on current medications. Continue [...] which included preparing to see the patient, resh-pw-dsue patient care, completing clinical documentation, obtaining and/or reviewing separately obtained history, performing a medically appropriate examination, counseling and educating the pat ient/family/caregiver, ordering medications, tests, or procedures, independently interpreting results (not separately reported), and communicating results to the patient/family/caregiver. documented in this encounterMari[facility]01-09-2025 Telephone encounter Note * Telephone Encounter - Josemanuel Ortiz - 07/25/2024 8:23 AM EST Patient on lab schedule 08/01/24 for lab only prior to RV. Please review and place needed order. Thank you, Gabi Ortiz MLT [facility]01-09-2025 Miscellaneous Notes* Telephone Encounter - Josemanuel Ortiz - 07/25/2024 8:23 AM EST Patient on lab schedule 08/01/24 for lab only prior to RV. Please review and place needed order. Thank you, Gabi Ortiz MLT documented in this encounterMarietta [facility] Hospital11-25-2024 Evaluation note* Diagnosis Onset Date Resolution Status [...] 2 diabetes mellitus with hyperglycemiaacuteFebruary 2024 9:28am [facility] Work Phone: [phone] Telephone encounter Note* Telephone Encounter - Aida Luo RPh - 05/08/2024 8:53 AM EDT This prescription confirms Pablo' re-enrollment in the Xtandi free drug program for 2024. Thank you Josh Luo PharmD, BCOP [facility] Work Phone: 1(559) 770-595010-23-2024 Miscellaneous Notes* Telephone Encounter - Aida Luo RPh - 05/08/2024 8:53 AM EDT This prescription confirms Pablo' re-enrollment in the Xtandi free drug program for 2024. Thank you Josh Luo PharmD, BCOP documented in this encounterMarietta [facility] Hospital10-23-2024 History of Present illness Narrative* Marco A Esqueda MD - 05/08/2024 8:13 AM EDT PATIENT NAME: Pablo Felix DATE: 05/09/2024 PRIMARY CARE PHYSICIAN: Dr. Jamar Fall OTHER PHYSICIANS: Dr. Anthony Scruggs, Dr. Khan, [facility] Cardiology Portions of this encounter [...] mg 24 hr tablet Take by mouth. Kybxlbacfgcsi-Cwkqpcqh-Qfoqam (MULTIVITAMIN 50 PLUS) tab Take 1 tablet [...] Radical retropubic prostatectomy and bilateral pelvic lymphadenectomy ([facility]) Poorly differentiated prostatic adenocarcinoma of left [...] 05/03/2024 0.18 RADIOLOGY/OTHER STUDIES: 11/05/2021 CT chest/abdomen/pelvis ([facility]) Several sclerotic lesions consistent with metastatic disease. No evidence of visceral organ involvement or lymphadenopathy. 11/05/2021 Bone scan ([facility]) Multifocal osseous metastasis including the left femur at the lesser trochanter, right pubis symphysis, multiple ribs bilaterally. 01/22/2018 Nuclear bone scan ([facility]) New focal increased activity left frontal bone, left T8 vertebral body. 01/22/2018 MRI pelvis ([facility]) 4.5 cm area of T2 signal in the prostate bed. 07/24/2014 CT abdomen/pelvis ([facility] Diffuse prostatic enlargement with indentation of the bladder base. Incidental 2.5 x 1 cm exophytic hypodense lesion adjacent to the pancreatic body. ASSESSMENT/PLAN: 1. Metastatic prostate cancer (HCC) - ICD9: 185, ICD10: C61 (primary diagnosis) The patient was diagnosed with early-stage high-grade prostate cancer in June 2014 (TRUS [id number]/02/2014). He underwent a radical prostatectomy on 11/05/2014. [...] 414.01, ICD10: I25.10 Status post CABG 08/17/2014 ([facility]). Stable on current medications. Continue [...] CC: Dr. Anthony Scruggs documented in this encounterMarietta [facility] Hospital10-04-2024 Hospital Discharge instructions Patient Education 04/19/2024 [...] under a microscope. This is called the Cerulean score and the total score can range from 6 10, indicating how likely it is that the cancer will spread (metastasize) to other parts of the body. The higher the score, the greater thelikelihood that the cancer will spread. Cerulean 6 or lower: This indicates that the cancer cells look similar to normal prostate cells (well differentiated). Cerulean 7: This indicates that the cancer cells [...] stress of having cancer. General instructions Take vsqo-tjd-siexowk and prescription medicines only as told by your health care provider. If you have to go to the hospital, notify your cancer specialist (oncologist). Keep all follow-up visits. This is important. Where to find more information [place] [employer]: www.cancer.org [place] Society of Clinical Oncology: www.cancer.net [place] Cancer [place]: www.cancer.gov Contact a health care provider if: [...] provider. Document Revised: 09/29/2021 Document Reviewed: 09/29/2021 [employer] Patient Education 2023 [employer]. Follow Up Care 10/20/2023 09:58:12 With:KAEL JAMES, Anthony Lee, URL Address: [address] [place] [address]- When: Unknown [facility] 10-04-2024 NotePatient Education Oncology Prostate Cancer [...] to normal prostate cells (moderately differentiated). ? Cerulean 8, 9, or 10: This indicates that [...] prostate gla (more content not included)...[facility]09-16-2024 Telephone encounter Note* Telephone Encounter - Aida Luo, [facility] - 04/01/2024 3:59 PM EDT Recd phone call from [facility] that they are unable to obtain the Xtandi 80mg tablets a thistime and requested a script for the 40 mg dosing. Order pending Josh Luo PharmD, BCOP [facility] Work Phone: [phone] Miscellaneous Notes* Telephone Encounter - Aida Luo RPh - 04/01/2024 3:59 PM EDT Recd phone call from [facility] that they are unable to obtain the Xtandi 80mg tablets a thistime and requested a script for the 40 mg dosing. Order pending Josh Luo PharmD, BCOP documented in this encounterMarietta Memorial Hospital07-19-2024 Instructions* Patient Instructions* Lynne Rajan APRN.CNP [...] troubles swallowing, increasing confusion documented in this encounterMarietta Memorial Hospital07-19-2024 History of Present illness Narrative* Lynne Rajan APRN.CNP - 02/02/2024 11:30 AM EDT PATIENT NAME: Pablo Felix DATE: February 02, 2024 PRIMARY CARE PHYSICIAN: Dr. Jamar Fall OTHER PHYSICIANS: Dr. Anthony Scruggs, Dr. Khan, [facility] Cardiology This note was copied [...] mg 24 hr tablet Take by mouth. Xqrhusuajppqb-Bgfjkepk-Vajpuu (MULTIVITAMIN 50 PLUS) tab Take 1 tablet [...] Radical retropubic prostatectomy and bilateral pelvic lymphadenectomy ([facility]) Poorly differentiated prostatic adenocarcinoma of left [...] 01/25/2024 0.15 RADIOLOGY/OTHER STUDIES: 11/05/2021 CT chest/abdomen/pelvis ([facility]) Several sclerotic lesions consistent with metastatic disease. No evidence of visceral organ involvement or lymphadenopathy. 11/05/2021 Bone scan ([facility]) Multifocal osseous metastasis including the left femur at the lesser trochanter, right pubis symphysis, multiple ribs bilaterally. 01/22/2018 Nuclear bone scan ([facility]) New focal increased activity left frontal bone, left T8 vertebral body. 01/22/2018 MRI pelvis ([facility]) 4.5 cm area of T2 signal in the prostate bed. 07/24/2014 CT abdomen/pelvis ([facility] Diffuse prostatic enlargement with indentation of the bladder base. Incidental 2.5 x 1 cm exophytic hypodense lesion adjacent to the pancreatic body. ASSESSMENT/PLAN: 1. Metastatic prostate cancer (HCC) - ICD9: 185, ICD10: C61 (primary diagnosis) The patient was diagnosed with early-stage high-grade prostate cancer in June 2014 (TRUS [id number]/02/2014). He underwent a radical prostatectomy on 11/05/2014. Pathology consistent with stage IIIC (pT2b, N0, M0), Cerulean 5+4 equal 9. Postop the patient's PSA [...] suppressed at <12. Bone scan obtained at [facility] 11/05/2021 revealed multiple bone metastases. CT [...] 414.01, ICD10: I25.10 Status post CABG 08/17/2014 ([facility]). Stable on current medications. Continue [...] up. Lynne Rajan APRN.CNP Hematology/Oncology [facility] [phone] CC: Dr. Anthony Scruggs documented in this encounterMarietta Memorial Hospital04-18-2024 History of Present illness Narrative* Christo Howard APRN.CNP - 11/02/2023 9:28 AM EDT PATIENT NAME: Pablo Felix DATE: 11/02/2023 PRIMARY CARE PHYSICIAN: Dr. Jamar Fall OTHER PHYSICIANS: Dr. Anthony Scruggs, Dr. Khan, [facility] Cardiology Portions of this encounter [...] mg 24 hr tablet Take by mouth. Epoxxevbyakmd-Pxoaswrl-Qnpejq (MULTIVITAMIN 50 PLUS) tab Take 1 tablet [...] Radical retropubic prostatectomy and bilateral pelvic lymphadenectomy ([facility]) Poorly differentiated prostatic adenocarcinoma of left [...] 10/29/2023 0.16 RADIOLOGY/OTHER STUDIES: 11/05/2021 CT chest/abdomen/pelvis ([facility]) Several sclerotic lesions consistent with metastatic disease. No evidence of visceral organ involvement or lymphadenopathy. 11/05/2021 Bone scan ([facility]) Multifocal osseous metastasis including the left femur at the lesser trochanter, right pubis symphysis, multiple ribs bilaterally. 01/22/2018 Nuclear bone scan ([facility]) New focal increased activity left frontal bone, left T8 vertebral body. 01/22/2018 MRI pelvis ([facility]) 4.5 cm area of T2 signal in the prostate bed. 07/24/2014 CT abdomen/pelvis ([facility] Diffuse prostatic enlargement with indentation of the bladder base. Incidental 2.5 x 1 cm exophytic hypodense lesion adjacent to the pancreatic body. ASSESSMENT/PLAN: 1. Metastatic prostate cancer (HCC) - ICD9: 185, ICD10: C61 (primary diagnosis) The patient was diagnosed with early-stage high-grade prostate cancer in June 2014 (TRUS [id number]/02/2014). He underwent a radical prostatectomy on 11/05/2014. [...] suppressed at <12. Bone scan obtained at [facility] 11/05/2021 revealed multiple bone metastases. CT [...] 414.01, ICD10: I25.10 Status post CABG 08/17/2014 ([facility]). Stable on current medications. Continue [...] would reconsider referral to GI. Christo Howard APRN.DEVULCANIZER CHARGER CC: Dr. Anthony Scruggs I spent a total of 30 minutes on the date of the service which included preparing to see the patient, qbpc-gb-irzc patient care, completing clinical documentation, obtaining and/or reviewing separately obtained history, performing a medically appropriate examination, counseling and educating the pat ient/family/caregiver, ordering medications, tests, or procedures, independently interpreting results (not separately reported), and communicating results to the patient/family/caregiver. documented in this encounterMarietta [facility] Hospital04-05-2024 Hospital Discharge instructions Patient Education 10/20/2023 [...] under a microscope. This is called the Cerulean score and the total score can range from 6 10, indicating how likely it is that the cancer will spread (metastasize) to other parts of the body. The higher the score, the greater thelikelihood that the cancer will spread. Lucrecia 6 or lower: This indicates that the cancer cells look similar to normal prostate cells (well differentiated). Cerulean 7: This indicates that the cancer cells look somewhat similar to normal prostate cells (moderately differentiated). Cerulean 8, 9, or 10: This indicates that [...] stress of having cancer. General instructions Take yara-zev-epwdsae and prescription medicines only as told by your health care provider. If you have to go to the hospital, notify your cancer specialist (oncologist). Keep all follow-up visits. This is important. Where to find more information [place] [employer]: www.cancer.org [place] Society of Clinical Oncology: www.cancer.net [place] Cancer [place]: www.cancer.gov Contact a health care provider if: [...] provider. Document Revised: 09/29/2021 Document Reviewed: 09/29/2021 [employer] Patient Education 2022 [employer]. Follow Up Care 04/17/2023 09:25:02 With:KAEL JAMES, Anthony Lee, URL Address: [address] [place] [address]- When: Unknown [facility] 02-12-2024 History of Present illness Narrative* Long Boo, ARCHITECTURAL ASSOCIATE-DEVULCANIZER CHARGER - 08/28/2023 11:25 AM EST Images from [...] limited to risks of scarring, darker or director employee safety and health pigmentary changes, recurrence, incomplete removal and infection. [...] biopsy results, 6 months documented in this encounterFreeman Orthopaedics & Sports [id number] Evaluation note* Encounter Date Diagnosis Assessment Notes [...] use, the patient reduces the risk for MS, CVA, HTN, cardiac dysrhythmias and sudden cardiac [...] retention cyst and frontal sinus mass benign [employer] Other 01-19-2024 Evaluation note* Encounter Date Diagnosis Assessment Notes Treatment Notes Treatment Clinical Notes Jul, Pancreatic mass (ICD-10 - K86.89 ) MRCP: 4cm mass - 2022 - previously completed EUS bx at [facility] - stable in size from 2021 [employer] Other 11-14-2023 Evaluation note* Encounter Date Diagnosis [...] ENT since scheduling appt for sinus mass [employer] Other 10-16-2023 Evaluation note* Encounter Date Diagnosis [...] malignant neoplasm of bone (ICD-10 - C79.51) [employer] Other 10-12-2023 History of Present illness Narrative* Christo Howard, ROCHELLE.DEVULCANIZER CHARGER - 04/27/2023 10:00 AM EDT PATIENT NAME: Pablo Felix DATE: 04/27/2023 PRIMARY CARE PHYSICIAN: Dr. Jamar Fall OTHER PHYSICIANS: Dr. Anthony Scruggs, Dr. Khan, [facility] Cardiology Portions of this encounter [...] mg 24 hr tablet Take by mouth. Heekkqchgdfrh-Ujqilluv-Gwatxl (MULTIVITAMIN 50 PLUS) tab Take 1 tablet [...] Radical retropubic prostatectomy and bilateral pelvic lymphadenectomy ([facility]) Poorly differentiated prostatic adenocarcinoma of left [...] 04/24/2023 0.12 RADIOLOGY/OTHER STUDIES: 11/05/2021 CT chest/abdomen/pelvis ([facility]) Several sclerotic lesions consistent with metastatic disease. No evidence of visceral organ involvement or lymphadenopathy. 11/05/2021 Bone scan ([facility]) Multifocal osseous metastasis including the left femur at the lesser trochanter, right pubis symphysis, multiple ribs bilaterally. 01/22/2018 Nuclear bone scan ([facility]) New focal increased activity left frontal bone, left T8 vertebral body. 01/22/2018 MRI pelvis ([facility]) 4.5 cm area of T2 signal in the prostate bed. 07/24/2014 CT abdomen/pelvis ([facility] Diffuse prostatic enlargement with indentation of the bladder base. Incidental 2.5 x 1 cm exophytic hypodense lesion adjacent to the pancreatic body. ASSESSMENT/PLAN: 1. Metastatic prostate cancer (HCC) - ICD9: 185, ICD10: C61 (primary diagnosis) The patient was diagnosed with early-stage high-grade prostate cancer in June 2014 (TRUS [id number]/02/2014). He underwent a radical prostatectomy on 11/05/2014. [...] suppressed at <12. Bone scan obtained at [facility] 11/05/2021 revealed multiple bone metastases. CT [...] 414.01, ICD10: I25.10 Status post CABG 08/17/2014 ([facility]). Stable on current medications. Continue [...] which included preparing to see the patient, hjav-hb-myje patient care, completing clinical documentation, obtaining and/or reviewing separately obtained history, performing a medically appropriate examination, counseling and educating the pat ient/family/caregiver, ordering medications, tests, or procedures, independently interpreting results (not separately reported), and communicating results to the patient/family/caregiver. documented in this encounterCleveland [id number] Evaluation note* Encounter Date Diagnosis Assessment Notes Treatment Notes Treatment Clinical Notes Apr, Pancreatic mass (ICD-10 - K86.89 ) [employer] Other [id number] Hospital Discharge instructions Patient Education 04/17/2023 09:18:19 [...] greater thelikelihood that the cancer will spread. Cerulean 6 or lower: This indicates that the cancer cells look similar to normal prostate cells (well differentiated). Cerulean 7: This indicates that the cancer cells look somewhat similar to normal prostate cells (moderately differentiated). Cerulean 8, 9, or 10: This indicates that [...] stress of having cancer. General instructions Take fdwu-eno-edstywr and prescription medicines only as told by your health care provider. If you have to go to the hospital, notify your cancer specialist (oncologist). Keep all follow-up visits. This is important. Where to find more information [place] [employer]: www.cancer.org [place] [employer] of Clinical Oncology: www.cancer.net [place] Cancer [place]: www.cancer.gov Contact a health care provider if: [...] provider. Document Revised: 09/29/2021 Document Reviewed: 09/29/2021 [employer] Patient Education 2022 [employer]. Follow Up Care 10/28/2022 08:37:57 With:KAEL JAMES, Anthony Lee, URL Address: [facility] [address] , [place] [address]- [phone] When: Unknown Comments:6 mos w/ PSA (and possible Lupron) [facility] [place] 09-27-2023 Evaluation note* Encounter Date Diagnosis Assessment Notes Treatment Notes Treatment Clinical Notes Mar, Pancreatic mass (ICD-10 - K86.89 ) [employer] Other 09-20-2023 Evaluation note* Encounter Date Diagnosis Assessment Notes Treatment Notes Treatment Clinical Notes Mar, Right upper quadrant abdominal p ain (ICD-10 - R10.11) Diet instructions Lab to r/o acute infection, cholecystitis, pancreatitis GBUS vs CT abd based on results BLand, low fat diet Mar,Nausea (ICD-10 - R11.0)Free Soil , small/frequent feedings. Pepcid, Prilosec, Tums as [...] Microalbumin, Dilated eye exam and Foot exam [employer] Other 08-30-2023 Evaluation note* Encounter Date Diagnosis [...] use, the patient reduces the risk for MS, CVA, HTN, cardiac dysrhythmias and sudden cardiac [...] exercise for 30 minutes, 3-5 times weekly. [employer] Other 07-23-2023 Evaluation note* Encounter Date Diagnosis Assessment Notes Treatment Notes Treatment Clinical Notes Jan, Left bundle-branch block, unspec ified (ICD-10 - I44.7) [employer] Other 07-20-2023 History of Present illness Narrative* Marco A Esqueda MD - 02/02/2023 7:38 AM EDT PATIENT NAME: Pablo Felix DATE: 02/02/2023 PRIMARY CARE PHYSICIAN: Dr. Jamar Fall OTHER PHYSICIANS: Dr. Anthony Scruggs, Dr. Khan, [facility] Cardiology Portions of this encounter [...] mg 24 hr tablet Take by mouth. Zxksvvrbymknk-Uvfkguzm-Lgkrfo (MULTIVITAMIN 50 PLUS) tab Take 1 tablet [...] Radical retropubic prostatectomy and bilateral pelvic lymphadenectomy ([facility]) Poorly differentiated prostatic adenocarcinoma of left [...] 10/25/2022 0.13 RADIOLOGY/OTHER STUDIES: 11/05/2021 CT chest/abdomen/pelvis ([facility]) Several sclerotic lesions consistent with metastatic disease. No evidence of visceral organ involvement or lymphadenopathy. 11/05/2021 Bone scan ([facility]) Multifocal osseous metastasis including the left femur at the lesser trochanter, right pubis symphysis, multiple ribs bilaterally. 01/22/2018 Nuclear bone scan ([facility]) New focal increased activity left frontal bone, left T8 vertebral body. 01/22/2018 MRI pelvis ([facility]) 4.5 cm area of T2 signal in the prostate bed. 07/24/2014 CT abdomen/pelvis [place] Diffuse prostatic enlargement with indentation of the bladder base. Incidental 2.5 x 1 cm exophytic hypodense lesion adjacent to the pancreatic body. ASSESSMENT/PLAN: 1. Metastatic prostate cancer (HCC) - ICD9: 185, ICD10: C61 (primary diagnosis) The patient was diagnosed with early-stage high-grade prostate cancer in June 2014 (TRUS [id number]/02/2014). He underwent a radical prostatectomy on 11/05/2014. [...] suppressed at <12. Bone scan obtained at [facility] 11/05/2021 revealed multiple bone metastases. CT [...] 414.01, ICD10: I25.10 Status post CABG 08/17/2014 ([facility]). Stable on current medications. Continue [...] CC: Dr. Anthony Scruggs documented in this encounterMarietta Memorial Hospital04-27-2023 History of Present illness Narrative* Christo Howard APRN.DEVULCANIZER CHARGER - 11/10/2022 10:00 AM EDT PATIENT NAME: Pablo Felix DATE: 11/10/2022 PRIMARY CARE PHYSICIAN: Dr. Jamar Fall OTHER PHYSICIANS: Dr. Anthony Scruggs, Dr. Khan, [facility] Cardiology Portions of this encounter [...] mg 24 hr tablet Take by mouth. Xqnnsnwmgzgwt-Oqrqbuxb-Lgzgye (MULTIVITAMIN 50 PLUS) tab Take 1 tablet [...] Radical retropubic prostatectomy and bilateral pelvic lymphadenectomy ([facility]) Poorly differentiated prostatic adenocarcinoma of left [...] PSA 0.13 RADIOLOGY/OTHER STUDIES: 11/05/2021 CT chest/abdomen/pelvis ([facility]) Several sclerotic lesions consistent with metastatic disease. No evidence of visceral organ involvement or lymphadenopathy. 11/05/2021 Bone scan ([facility]) Multifocal osseous metastasis including the left femur at the lesser trochanter, right pubis symphysis, multiple ribs bilaterally. 01/22/2018 Nuclear bone scan ([facility]) New focal increased activity left frontal bone, left T8 vertebral body. 01/22/2018 MRI pelvis ([facility]) 4.5 cm area of T2 signal in the prostate bed. 07/24/2014 CT abdomen/pelvis ([facility] Diffuse prostatic enlargement with indentation of the bladder base. Incidental 2.5 x 1 cm exophytic hypodense lesion adjacent to the pancreatic body. ASSESSMENT/PLAN: 1. Metastatic prostate cancer (HCC) - ICD9: 185, ICD10: C61 (primary diagnosis) The patient was diagnosed with early-stage high-grade prostate cancer in June 2014 (TRUS [id number]/02/2014). He underwent a radical prostatectomy on 11/05/2014. [...] suppressed at <12. Bone scan obtained at [facility] 11/05/2021 revealed multiple bone metastases. CT [...] 414.01, ICD10: I25.10 Status post CABG 08/17/2014 ([facility]). Stable on current medications. Continue [...] which included preparing to see the patient, bnez-np-azsz patient care, completing clinical documentation, obtaining and/or reviewing separately obtained history, performing a medically appropriate examination, counseling and educating the pat ient/family/caregiver, ordering medications, tests, or procedures, independently interpreting results (not separately reported), and communicating results to the patient/family/caregiver. documented in this encounterMarietta Memorial Hospital03-03-2023 Evaluation note* Encounter Date Diagnosis [...] injection w/ Kenalog, may increase BS slightly [employer] Other 02-24-2023 Evaluation note* Encounter Date Diagnosis [...] use, the patient reduces the risk for MS, CVA, HTN, cardiac dysrhythmias and sudden cardiac [...] Lupron along w/ additional oral chemotherapy from [facility] On[facility]. Also receiving Boniva Aug,OtherPersonalized health advice was given to the beneficiary including a written plan for screenings discussed and provided. Advanced care planning reviewed and/or information given as requested. Additional counseling was provided here today in regards to, [ ]. The above visit was performed by [ ] underdirect supervision of [ ]. Document reviewed and amended by provider signed below. [employer] Other 01-26-2023 History of Present illness Narrative* Marco A Esqueda MD - 08/11/2022 7:42 AM EST PATIENT NAME: Pablo Felix DATE: 08/11/2022 PRIMARY CARE PHYSICIAN: Dr. Jamar Fall OTHER PHYSICIANS: Dr. Anthony Scruggs, Dr. Khan, [facility] Cardiology Portions of this encounter [...] mg 24 hr tablet Take by mouth. Ciqxubctdxyow-Cdchvsko-Kkfkjf (MULTIVITAMIN 50 PLUS) tab Take 1 tablet [...] Radical retropubic prostatectomy and bilateral pelvic lymphadenectomy ([facility]) Poorly differentiated prostatic adenocarcinoma of left [...] 08/11/2022 PSA RADIOLOGY/OTHER STUDIES: 11/05/2021 CT chest/abdomen/pelvis ([facility]) Several sclerotic lesions consistent with metastatic disease. No evidence of visceral organ involvement or lymphadenopathy. 11/05/2021 Bone scan ([facility]) Multifocal osseous metastasis including the left femur at the lesser trochanter, right pubis symphysis, multiple ribs bilaterally. 01/22/2018 Nuclear bone scan ([facility]) New focal increased activity left frontal bone, left T8 vertebral body. 01/22/2018 MRI pelvis ([facility]) 4.5 cm area of T2 signal in the prostate bed. 07/24/2014 CT abdomen/pelvis ([facility] Diffuse prostatic enlargement with indentation of the bladder base. Incidental 2.5 x 1 cm exophytic hypodense lesion adjacent to the pancreatic body. ASSESSMENT/PLAN: 1. Metastatic prostate cancer (HCC) - ICD9: 185, ICD10: C61 (primary diagnosis) The patient was diagnosed with early-stage high-grade prostate cancer in June 2014 (TRUS [id number]/02/2014). He underwent a radical prostatectomy on 11/05/2014. Pathology consistent with stage IIIC (pT2b, N0, M0), Cerulean 5+4 equal 9. Postop the patient's PSA [...] suppressed at <12. Bone scan obtained at [facility] 11/05/2021 revealed multiple bone metastases. CT [...] 414.01, ICD10: I25.10 Status post CABG 08/17/2014 ([facility]). Stable on current medications. Continue [...] CC: Dr. Anthony Scruggs documented in this encounterMarietta Memorial Hospital01-05-2023 NotePROCEDURE: XR SHOULDER LT 2V [...] Electronically authenticated by: CYNTHIA TORRES Date: 2022-07-21 15:46[facility]01-05-2023 Evaluation note* Encounter Date Diagnosis Assessment Notes Treatment Notes Treatment Clinical Notes Jul, Cervical spondylosis with radicu lopathy (ICD-10 - M47.22) ROM exercises, heat/ice and Tylenol 1000mg tid. Initiated Tramadol w/ caution, no driving, may cause sedation. Jul,cute pain of left shoulder (ICD-10 - M25.512)ROM exercises, Tylenol and Tramadol as needed. Jul,nnual physical exam (ICD-10 - Z00.00) [employer] Other 10-28-2022 Hospital Discharge instructions Patient Education [...] who: Are older than age 65. Are -[place]. Are obese. Have a family history of [...] cells. Follow these instructions at home: Take qfjd-bzl-uajnfxc and prescription medicines only as told by [...] 07/03/2006 Document Revised: 06/15/2018 Document Reviewed: 03/13/2017 [employer] Patient Education [employer]. Follow Up Care 11/08/2021 14:14:20 With:KAEL JAMES, Anthony Lee, URL Address: [address] [place], [place] [id number]- When: Unknown [facility] 10-27-2022 Nurse Note* Sheela Toney - 05/12/2022 10:43 AM EDT AUA=2 documented in this encounterMarietta Memorial Hospital10-27-2022 History of Present illness Narrative* Zach Khan MD - 05/12/2022 10:41 AM EDT Radiation Oncology - Follow Up Note PATIENT NAME: Pablo Felix PATIENT DIAGNOSIS: Prostate adenocarcinoma, initial clinical stage II, initial PSA 1.07, biopsy Lucrecia score 9(4,5), s/p prostatectomy for 11/05/14 pathologic stage IIIC [id number], Cerulean 9 (5, 4) now with rising PSA [...] Each once daily. To test blood sugar Pwbozaoaonklt-Fqyatkqe-Gwhaqg (MULTIVITAMIN 50 PLUS) tab Take 1 tablet [...] clinical stage II, initial PSA 1.07, biopsy Cerulean score 9(4,5), s/p prostatectomy for 11/05/14 pathologic stage IIIC [id number], Cerulean 9 (5, 4) withrising PSA, subsequently status [...] included in the EMR. documented in this encounterMarietta Memorial Hospital10-17-2022 Miscellaneous Notes* Telephone Encounter - Sheela Toney - 05/02/2022 10:48 AM EDT Patient coming in on 05/12/22 for follow up with labs. Please add lab orders. Thanks, Sheela Toney MA documented in this encounterMarietta Memorial Hospital08-04-2022 History of Present illness Narrative* Marco A Esqueda MD - 02/17/2022 7:51 AM EDT PATIENT NAME: Pablo Felix DATE: 02/17/2022 PRIMARY CARE PHYSICIAN: Jamar Fall DO OTHER PHYSICIANS: Dr. Anthony Scruggs, Dr. Khan, [facility] Cardiology Portions of this encounter [...] Each once daily. To test blood sugar Ypczjzwudxwly-Iohsogri-Nftyhi (MULTIVITAMIN 50 PLUS) tab Take 1 tablet [...] Radical retropubic prostatectomy and bilateral pelvic lymphadenectomy ([facility]) Poorly differentiated prostatic adenocarcinoma of left [...] PSA 0.14 RADIOLOGY/OTHER STUDIES: 11/05/2021 CT chest/abdomen/pelvis ([facility]) Several sclerotic lesions consistent with metastatic disease. No evidence of visceral organ involvement or lymphadenopathy. 11/05/2021 Bone scan ([facility]) Multifocal osseous metastasis including the left femur at the lesser trochanter, right pubis symphysis, multiple ribs bilaterally. 01/22/2018 Nuclear bone scan ([facility]) New focal increased activity left frontal bone, left T8 vertebral body. 01/22/2018 MRI pelvis ([facility]) 4.5 cm area of T2 signal in the prostate bed. 07/24/2014 CT abdomen/pelvis ([facility] Diffuse prostatic enlargement with indentation of the bladder base. Incidental 2.5 x 1 cm exophytic hypodense lesion adjacent to the pancreatic body. ASSESSMENT/PLAN: 1. Metastatic prostate cancer (HCC) - ICD9: 185, ICD10: C61 (primary diagnosis) The patient was diagnosed with early-stage high-grade prostate cancer in June 2014 (TRUS [id number]/02/2014). He underwent a radical prostatectomy on 11/05/2014. Pathology consistent with stage IIIC (pT2b, N0, M0), Cerulean 5+4 equal 9. Postop the patient's PSA [...] at <12. Staging scans were obtained at [facility] on 11/05/2021. Bone scan revealed multiple [...] 414.01, ICD10: I25.10 Status post CABG 08/17/2014 ([facility]). Stable on current medications. Continue [...] negative. Will monitor with repeat CT scan. Marc oA Esqueda MD CC: Dr. Anthony Scruggs documented in this encounterMarietta Memorial Hospital05-23-2022 Miscellaneous Notes* Telephone Encounter - [...] that he has the phone number to [facility]. No additional questionsnoted. Clementine Aguilar RN documented in this encounterMarietta Memorial Hospital04-28-2022 History of Present illness Narrative* Marco A Esqueda MD - 11/11/2021 7:42 AM EDT PATIENT NAME: Pablo Felix DATE: 11/11/2021 PRIMARY CARE PHYSICIAN: Jamar Fall, OTHER PHYSICIANS: Dr. Anthony Scruggs, Dr. Khan, [facility] Cardiology Portions of this encounter note have been copied from my note from 10/28/2021 and has been updated where appropriate, and reflect my current medical decision making from today. CC: This is a 76 year old male with recently diagnosed metastatic prostate cancer, seen for scheduled follow-up. INTERIM HISTORY: Since the patient's initial visit here he underwent staging scans at [facility] on 11/05/2021. Bone scan revealed multiple [...] Each once daily. To test blood sugar Ihruxsuuymbet-Lachbmoz-Brszoz (MULTIVITAMIN 50 PLUS) tab Take 1 tablet [...] Radical retropubic prostatectomy and bilateral pelvic lymphadenectomy ([facility]) Poorly differentiated prostatic adenocarcinoma of left [...] PSA 2.64 RADIOLOGY/OTHER STUDIES: 11/05/2021 CT chest/abdomen/pelvis ([facility]) Several sclerotic lesions consistent with metastatic disease. No evidence of visceral organ involvement or lymphadenopathy. 11/05/2021 Bone scan ([facility]) Multifocal osseous metastasis including the left femur at the lesser trochanter, right pubis symphysis, multiple ribs bilaterally. 01/22/2018 Nuclear bone scan ([facility]) New focal increased activity left frontal bone, left T8 vertebral body. 01/22/2018 MRI pelvis ([facility]) 4.5 cm area of T2 signal in the prostate bed. 07/24/2014 CT abdomen/pelvis ([facility] Diffuse prostatic enlargement with indentation of the bladder base. Incidental 2.5 x 1 cm exophytic hypodense lesion adjacent to the pancreatic body. ASSESSMENT/PLAN: 1. Metastatic prostate cancer (HCC) - ICD9: 185, ICD10: C61 (primary diagnosis) The patient was diagnosed with early-stage high-grade prostate cancer in June 2014 (TRUS [id number]/02/2014). He underwent a radical prostatectomy on 11/05/2014. [...] at <12. Staging scans were obtained at [facility] on 11/05/2021. Bone scan revealed multiple [...] 414.01, ICD10: I25.10 Status post CABG 08/17/2014 ([facility]). Stable on current medications. Continue [...] CC: Dr. Anthony Scruggs documented in this encounterMarietta Memorial Hospital04-27-2022 Miscellaneous Notes* Telephone Encounter - Clementine Aguilar RN - 11/10/2021 3:03 PM EDT Pt reports his Enzalutamide was delivered. Will start this evening. Clementine Aguilar RN documented in this encounterMarietta Memorial Hospital04-26-2022 Miscellaneous Notes* Telephone Encounter - Clementine Aguilar RN - 11/09/2021 2:31 PM EDT Per pt, his Enzalutamide is scheduled to arrive tomorrow morning. Patient started/will start taking Enzalutamide on 11/10/21. Clementine Aguilar RN documented in this encounterMarietta Memorial Hospital04-25-2022 Hospital Discharge instructions Patient Education [...] who: Are older than age 65. Are -[place]. Are obese. Have a family history of [...] cells. Follow these instructions at home: Take ebcp-ddt-vwbytqb and prescription medicines only as told by [...] 07/03/2006 Document Revised: 06/15/2018 Document Reviewed: 03/13/2017 [employer] Patient Education 2020 [employer]. Follow Up Care 08/23/2021 13:26:07 With:KAEL JAMES, Anthony Lee, URL Address: [facility] [address] [place] [phone] When:05/10/2022 [facility] 04-21-2022 Miscellaneous Notes* Telephone Encounter - Clementine Aguilar RN - 11/04/2021 2:53 PM EDT Pt would like to get the 4th Covid vaccine when it's due. Dr Esqueda notified and gives the ok to proceed when due. Pt notified and verbalizes understanding. Clementine Aguilar RN documented in this encounterMarietta Memorial Hospital04-21-2022 History of Present illness Narrative* [...] Information handout: Enzalutamide, Specialty Pharmacy Information : [facility] phone numbers: Yes [...] minutes Clementine Aguilar RN * Aida Luo, [facility] - 11/04/2021 2:49 PM EDT [...] Each once daily. To test blood sugar Vardqatuoteei-Bhksuakm-Kxutsd (MULTIVITAMIN 50 PLUS) tab Take 1 tablet [...] of chemotherapy NA - Followed up with [facility] for delivery of Free Xtandi Readiness [...] patient Zuleymaalyssachaka Luo RPh documented in this encounterMarietta Memorial Hospital04-21-2022 Miscellaneous Notes* Telephone Encounter - Aida Luo RPh - 11/04/2021 10:54 AM EDT Confirmed with [email or web address] approval date 11/01/21 and that the specialty pharmacy, [facility], will reach out to Mr Felix 3-5 business days from approval date. If he does not hear from them by 11/10/21 we should call [facility] @ option 2. I informed Mr Felix of this, he has an appt 11/12/21 and said if he has not heard from them by then he will get their phone number from us. Rubin Luo RPh documented in this encounterMarietta Memorial Hospital04-19-2022 Miscellaneous Notes* Telephone Encounter - [...] him know to be expecting this call. [facility] will call patient to set up delivery for all fills. I do not see where he has had chemo education yet. Alba does he need to be set up with you? Thanks Rubin Luo RP * Telephone Encounter - Andreina Castillo RP - 11/01/2021 10:55 AM EDT Patient called today. We completed a conference call with [employer] support solutions - they were ableto obtain [...] We will proceed free drug application through [employer]. Pharmacy to reach out to patient 10/29/2021 to notify. Brina Wang RPh * Telephone Encounter - Brina Wang RPh - 10/28/2021 3:08 PM EDT Ambulatory Pharmacy Prior Authorization Note Provider Intervention Required?: No- Pharmacy completed on your behalf. Drug: Xtandi Cover My Meds Carter: [id number] Determination: Approved Prior Authorization/Case #: [id number] Prior Authorization Expiration: 10/28/2022 Time to PA Submission in CMM: 15 min Time to PA Determination in CMM: Same day Additional Information: [employer]-Pay $3,111.12 For questions relating to this submission, please contact [facility] at [phone] documented in this encounterMarietta Memorial Hospital04-19-2022 Miscellaneous Notes* Telephone Encounter - Zohra Avila PA-C - 11/02/2021 12:00 PM EDT CBC and CMP orders placed Zohra Avila PA-C * Telephone Encounter - Katie Rosen MA - 11/02/2021 11:57 AM EDT Patient has an appt on 11/11/21. Would you like labs, if so place orders. Katie Rosen MA documented in this encounterMarietta Memorial Hospital04-18-2022 Miscellaneous Notes* Telephone Encounter - [...] assistance program. Thanks, RADHA documented in this encounterMarietta Memorial Hospital04-14-2022 Miscellaneous Notes* Telephone Encounter - Clementine Aguilar RN - 10/28/2021 1:12 PM EDT Voicemail message received from Sandra @ [facility]. Reports the pt's 1st dose of Lupron was given on 02/12/2018. Dr Esqueda notified. Clementine Aguilar RN * Telephone Encounter - Clementine Aguilar RN - 10/28/2021 12:[address] Esqueda requests that we contact Dr Scruggs' office for pt's Lupron start date. Call placed to [facility]. No answer. Message left requesting call back. Clementine Aguilar RN documented in this encounterMarietta Memorial Hospital04-14-2022 Miscellaneous Notes* Telephone Encounter - Clementine Aguilar RN - 10/28/2021 1:12 PM EDT This encounter was opened in error. @[email or web address]@ documented in this encounterMarietta Memorial Hospital04-11-2022 Miscellaneous Notes* Telephone Encounter - Christo Howard APRN.CNP - 10/25/2021 4:05 PM EDT Hold off for now. Christo Howard APRN.DEVULCANIZER CHARGER * Telephone Encounter - Katie Rosen MA - 10/25/2021 11:01 AM EDT If patient needs labs, please sign/place orders for 10/28/21. Thanks. Katie Rosen MA documented in this encounterMarietta Memorial Hospital01-01-2015 Evaluation note* Diagnosis Onset Date Resolution Status ASHD (arteriosclerotic heart disease) acuteCervical spondylosisacuteEssential hypertensionacuteHypercholesterolemia acuteMalignant neoplasm of prostateJanuary cuteNonrheumatic aortic valve stenosisacuteOSA (obstructive sleep apnea)acuteType [address] diabetes mellitus [address]cemiaacute [facility] Work Phone: Evaluation + Plan note Future Appointments Appointment Date:05/13/2022 08:45:00 AM Scheduled Provider:Anthony SCRUGGS MD Location:[facility] Appointment Type:URO Office Visit Diagnostic Tests Pending * PSA Total 11/08/21 Future Scheduled Tests Laboratory* Basic Metabolic Panel 09/20/21 [facility] evaluation + Plan note Future Appointments Appointment Date:10/28/2022 08:00:00 AM Scheduled Provider:Anthony SCRUGGS MD Location:[facility] Appointment Type:URO Office Visit Diagnostic Tests Pending * PSA Total 09/14/22 Future Scheduled Tests Laboratory* Basic Metabolic Panel 09/20/21 [facility] evaluation + Plan note Future Appointments Appointment Date:10/20/2023 08:45:00 AM Scheduled Provider:Anthony SCRUGGS MD Location:[facility] Appointment Type:URO Office Visit Diagnostic Tests Pending * PSA Total 04/17/23 [facility] evaluation + Plan note Future Appointments Appointment Date:04/19/2024 08:00:00 AM Scheduled Provider:Anthony SCRUGGS MD Location:[facility] Appointment Type:URO Office Visit Diagnostic Tests Pending * PSA Total 02/15/24 [facility] evaluation + Plan note Future Appointments Appointment Date:10/07/2024 09:15:00 AM Scheduled Provider:[facility] Type:[facility] Office Visit Diagnostic Tests Pending * PSA Total 08/17/24 [facility] evaluation + Plan note Future Appointments Appointment Date:09/22/2025 09:30:00 AM Scheduled Provider: Location:[facility] Appointment Type:URO Nurse Visit Appointment Date:09/29/2025 11:15:00 AM Scheduled Provider:Anthony [facility]CRUGGS [facility] Type:URO Office Visit Diagnostic Tests Pending * PSA Total 03/31/25 [facility] Evaluation note* Diagnosis OPENED IN ERROR- Primary To allow closing an encounter opened in error (used in SmartSet) documented in this encounter [facility]* Diagnosis Malignant neoplasm of prostate (HCC)- Primary Malignant neoplasm of prostate [facility]* Diagnosis Malignant neoplasm of prostate (HCC)- Primary Malignant neoplasm of prostate 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* Diagnosis Malignant neoplasm of prostate (HCC)- Primary Malignant neoplasm of prostate 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* Diagnosis Malignant neoplasm of prostate (HCC)- Primary Malignant neoplasm of prostate [facility]* Diagnosis Malignant neoplasm of prostate (HCC)- Primary Malignant neoplasm of prostate [facility]* Diagnosis Malignant neoplasm of prostate (HCC)- Primary Malignant neoplasm of prostate [facility]* Diagnosis Malignant neoplasm of prostate (HCC)- Primary Malignant neoplasm of prostate 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[place] heart without angina pectoris, unspecified vessel or lesion type Essential hypertension Unspecified essential hypertension Type 2 diabetes mellitus without complication, without long-term current use of insulin (HCC) documented in this encounter [facility] noteNo [facility] [employer] Other Evaluation note* Diagnosis Malignant neoplasm of prostate (HCC)- Primary Malignant neoplasm of prostate Coronary artery disease involving [place] heart without angina pectoris, unspecified vessel or lesion type Essential hypertension Unspecified essential hypertension Type 2 diabetes mellitus without complication, without long-term current use of insulin (HCC) documented [facility] this encounter [facility]* Diagnosis Malignant neoplasm of prostate (HCC)- Primary Malignant neoplasm of prostate documented in this encounter [facility] note* Diagnosis Malignant neoplasm of prostate (HCC)- Primary Malignant neoplasm of prostate documented in this encounter [facility] note* Diagnosis Malignant neoplasm of prostate (HCC)- Primary Malignant neoplasm of prostate Coronary artery disease involving [place] heart without angina pectoris, unspecified vessel or lesion type Essential hypertension Unspecified essential hypertension Type 2 diabetes mellitus without complication, without long-term current use of insulin (HCC) documented in this encounter [facility]* Diagnosis Neoplasm of unspecified behavior of bone, soft tissue, and skin Actinic keratosis documented in this encounter [facility] note* Diagnosis Malignant neoplasm of prostate (HCC)- Primary Malignant neoplasm of prostate documented in this encounter [facility] note* Diagnosis Malignant neoplasm of prostate (HCC)- Primary Malignant neoplasm of prostate Essential hypertension Unspecified essential hypertension Coronary artery disease involving [place] heart without angina pectoris, unspecified vessel or lesion type Type 2 diabetes mellitus without complication, without long-term current use of insulin (HCC) Lesion of skin of right ear Abdominal discomfort Abdominal pain, unspecified site documented in this encounter [facility] note* Diagnosis Onset Date Resolution Status Cervical spondylosis acuteMass of skin of left shoulderacutePrimary osteoarthritis, right shoulder acuteShoulder pain, rightacuteNeck painnoneactiveASHD (arteriosclerotic heart disease)acuteEssential hypertensionacuteHypercholesterolemiaacuteMalignant neoplasm of prostateJanuary cuteNonrheumatic aortic valve stenosis acuteOSA (obstructive sleep apnea)acuteType [address] with [address] [facility] Work Phone: Evaluation note* Diagnosis Malignant neoplasm of prostate (HCC)- Primary Malignant neoplasm of prostate documented in this encounter [facility] note* Diagnosis Malignant neoplasm of prostate (HCC)- Primary Malignant neoplasm of prostate documented in this [facility] note* Diagnosis Malignant neoplasm of prostate (HCC)- Primary Malignant neoplasm of prostate documented in this encounter [facility] note* Diagnosis Malignant neoplasm of prostate (HCC)- Primary Malignant neoplasm of prostate documented in this encounter [facility]* Diagnosis Malignant neoplasm of prostate (HCC)- Primary Malignant neoplasm of prostate Essential hypertension Unspecified essential hypertension Coronary artery disease involving [place] heart without angina pectoris, unspecified vessel or lesion type Type 2 diabetes mellitus without complication, without long-term current use of insulin (HCC) [facility] Malignant neoplasm of prostate (HCC)- Primary Malignant neoplasm of prostate [facility] Seborrheic keratosis- Primary Melanocytic nevus of trunk Benign neoplasm of skin of trunk, except scrotum Actinic keratosis Lentigines Psoriasis vulgaris Other psoriasis History of SCC (squamous cell carcinoma) of skin Personal history of other malignant neoplasm of skin [facility] Diagnosis Onset Date Resolution Status Admit Date ASHD (arteriosclerotic heart disease) acuteOctober 2024 9:18amCervical spondylosisacuteOctober 2024 9:18am Essential hypertensionacuteOctober 2024 9:18amHypercholesterolemiaacute May 01, 2025 9:18amMalignant neoplasm of prostateJanuary cute May 01, 2025 9:18amNonrheumatic aortic valve stenosisacuteOctober 2024 9:18amOSA (obstructive sleep apnea)acuteOctober 2024 9:18amType 2 diabetes mellitus with hyperglycemiaacuteOctober 2024 9:18am [facility] Work Phone: History general Narrative - Reported* Type Description Date Medical History Nonrheumatic aortic valve stenos is Medical HistoryProstate cancerMedical HistoryObesity (BMI 30-39.9)Medical HistoryOSA (obstructive sleep apnea)Medical HistoryHyperlipidemia type IIMedical HistoryEssential hypertensionMedical HistoryType 2 diabetes mellitus with hyperglycemiaMedical HistoryASHD (arteriosclerotic heart disease)Medical History Depression screeningMedical HistoryOther congenital malformations of iris Surgical HistoryAppendectomy07/27/2016Surgical HistoryTRUS/Bx/2014Surgical Qqxejelwjyibsfufab35/2019Surgical RplcphgLVK96/2019Surgical HistoryLHC/2014 Surgical HistoryCABG x32/2015Surgical HistoryPancreatic Mass/2016 Hospitalization Historysee surgical [employer] Other History general Narrative - Reported* Type Description Date Medical History Nonrheumatic aortic valve stenos is Medical HistoryProstate cancerMedical HistoryObesity (BMI 30-39.9)Medical HistoryOSA (obstructive sleep apnea)Medical HistoryHyperlipidemia type IIMedical HistoryEssential hypertensionMedical HistoryType 2 diabetes mellitus with hyperglycemiaMedical HistoryASHD (arteriosclerotic heart disease)Medical History Depression screeningMedical HistoryOther congenital malformations of irisMedical HistoryPancreatic massSurgical HistoryAppendectomy07/27/2016Surgical History TRUS/Bx/2014Surgical Kqznrchktqzchrdbkv81/2019Surgical TbfcwqmVOD19/2019 Surgical HistoryLHC2/2014Surgical HistoryCABG x32/2015Surgical HistoryPancreatic Mass/2016Hospitalization Historysee surgical hx [employer] Other Hospital course Narrative No data available for this section [facility] progress note No data available for this section [facility] reason for referral (narrative)No reason for referral information availableSt. [facility] Work Phone: Medications Administered Section Medication OrderMAR ActionAction DateDoseRateSite denosumab 120 mg injection (XGEVA) 120 mg, SUBCUTANEOUS, ONCE, 1 dose, On Mon11/18/21 at 1100, REFRIGERATE Given11/18/2021 10:47 AM [id number] mgArm, LeftMedication OrderMAR ActionAction Date DoseRateSite denosumab 120 mg injection (XGEVA) 120 mg, SUBCUTANEOUS, ONCE, 1 dose, On Mon05/12/22 at 1030, REFRIGERATE Given05/12/2022 10:26 AM [id number] mgArm, LeftMedication OrderMAR ActionAction Date DoseRateSite denosumab 120 mg injection (XGEVA) 120 mg, SUBCUTANEOUS, ONCE, 1 dose, On Mon08/11/22 at 1030, REFRIGERATE Given08/11/2022 10:23 AM [id number] mgArm, LeftMedication OrderMAR ActionAction Date DoseRateSite denosumab 120 mg injection (XGEVA) 120 mg, SUBCUTANEOUS, ONCE, 1 dose, On [place] 4/27/23 at 1000, REFRIGERATE Given11/10/2022 10:03 AM [id number] mgBack, LeftMedication OrderMAR ActionAction DateDoseRateSite denosumab 120 mg injection (XGEVA) 120 mg, SUBCUTANEOUS, ONCE, 1 dose, On Mon02/02/23 at 1030, REFRIGERATE Given02/02/2023 10:34 AM [id number] mgArm, LeftMedication OrderMAR ActionAction Date DoseRateSite denosumab 120 mg injection (XGEVA) 120 mg, SUBCUTANEOUS, ONCE, 1 dose, On Mon04/27/23 at 1000, REFRIGERATE Given04/27/2023 9:57 AM [id number] mgArm, Left Summary Purpose Family History No [...] To Contact Diagnoses Actinic keratosis Long Boo, ARCHITECTURAL ASSOCIATE-DEVULCANIZER CHARGER [address] [place] [address] Referral IDStatusReasonStart DateExpiration DateVisits RequestedVisits [id number] Reason *FU 06/06 Right fr ontal sinus mass and cerumen impaction Diagnosis 1 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) Diagnosis 2 Impacted cerumen of right ear (H61.21) Referral Organization [facility] Thony lizama Referring Provider First Name Jamar Referring Provider Last Name Juan David Referring Provider Specialty Internal Me dicine Referred Organization [facility] Referred Provider Emelina Louis Referred Address ,[place], [place],[address] Referred Provider Specialty Ear, Nose an d [...] any alcohol or drug abuse patient.[facility] Hospital[facility] the event this information is protected by the Federal Confidentiality of Alcohol and Drug Abuse Patient Records regulations: The Federal rules restrict any use of the information to criminally investigate or prosecute any alcohol or drug abuse patient.[facility] HospitalIn the event this information is protected by the Federal Confidentiality of Alcohol and Drug Abuse Patient Records regulations: The Federal rules restrict any use of the information to criminally investigate or prosecute any alcohol or drug abuse patient.[facility] HospitalIn the event this information is protected by the Federal Confidentiality of Alcohol and Drug Abuse Patient Records regulations: The Federal rules restrict any use of the information to criminally investigate or prosecute any alcohol or drug abuse patient.[facility] HospitalIn the event this information is protected by the Federal Confidentiality of Alcohol and Drug Abuse Patient Records regulations: The Federal rules restrict any use of the information to criminally investigate or prosecute any alcohol or drug abuse patient.[facility] HospitalIn the event this information is protected by the Federal Confidentiality of Alcohol and Drug Abuse Patient Records regulations: The Federal rules restrict any use of the information to criminally investigate or prosecute any alcohol or drug abuse patient.[facility] HospitalIn the event this information is protected by the Federal Confidentiality of Alcohol and Drug Abuse Patient Records regulations: The Federal rules restrict any use of the information to criminally investigate or prosecute any alcohol or drug abuse patient.[facility] HospitalIn the event this information is protected by the Federal Confidentiality of Alcohol and Drug Abuse Patient Records regulations: The Federal rules restrict any use of the information to criminally investigate or prosecute any alcohol or drug abuse patient.[facility] HospitalIn the event this information is protected by the Federal Confidentiality of Alcohol and Drug Abuse Patient Records regulations: The Federal rules restrict any use of the information to criminally investigate or prosecute any alcohol or drug abuse patient.[facility] HospitalIn the event this information is protected by the Federal Confidentiality of Alcohol and Drug Abuse Patient Records regulations: The Federal rules restrict any use of the information to criminally investigate or prosecute any alcohol or drug abuse patient.[facility] HospitalIn the event this information is protected by the Federal Confidentiality of Alcohol and Drug Abuse Patient Records regulations: The Federal rules restrict any use of the information to criminally investigate or prosecute any alcohol or drug abuse patient.[facility] HospitalIn the event this information is protected by the Federal Confidentiality of Alcohol and Drug Abuse Patient Records regulations: The Federal rules restrict any use of the information to criminally investigate or prosecute any alcohol or drug abuse patient.[facility] HospitalIn the event this information is protected by the Federal Confidentiality of Alcohol and Drug Abuse Patient Records regulations: The Federal rules restrict any use of the information to criminally investigate or prosecute any alcohol or drug abuse patient.[facility] HospitalIn the event this information is protected by the Federal Confidentiality of Alcohol and Drug Abuse Patient Records regulations: The Federal rules restrict any use of the information to criminally investigate or prosecute any alcohol or drug abuse patient.[facility] HospitalIn the event this information is protected by the Federal Confidentiality of Alcohol and Drug Abuse Patient Records regulations: The Federal rules restrict any use of the information to criminally investigate or prosecute any alcohol or drug abuse patient.[facility] HospitalIn the event this information is protected by the Federal Confidentiality of Alcohol and Drug Abuse Patient Records regulations: The Federal rules restrict any use of the information to criminally investigate or prosecute any alcohol or drug abuse patient.[facility] HospitalIn the event this information is protected by the Federal Confidentiality of Alcohol and Drug Abuse Patient Records regulations: The Federal rules restrict any use of the information to criminally investigate or prosecute any alcohol or drug abuse patient.[facility] HospitalIn the event this information is protected by the Federal Confidentiality of Alcohol and Drug Abuse Patient Records regulations: The Federal rules restrict any use of the information to criminally investigate or prosecute any alcohol or drug abuse patient.[facility] HospitalIn the event this information is protected by the Federal Confidentiality of Alcohol and Drug Abuse Patient Records regulations: The Federal rules restrict any use of the information to criminally investigate or prosecute any alcohol or drug abuse patient.[facility] HospitalIn the event this information is protected by the Federal Confidentiality of Alcohol and Drug Abuse Patient Records regulations: The Federal rules restrict any use of the information to criminally investigate or prosecute any alcohol or drug abuse patient.[facility] HospitalIn the event this information is protected by the Federal Confidentiality of Alcohol and Drug Abuse Patient Records regulations: The Federal rules restrict any use of the information to criminally investigate or prosecute any alcohol or drug abuse patient.[facility] HospitalIn the event this information is protected by the Federal Confidentiality of Alcohol and Drug Abuse Patient Records regulations: The Federal rules restrict any use of the information to criminally investigate or prosecute any alcohol or drug abuse patient.[facility] HospitalIn the event this information is protected by the Federal Confidentiality of Alcohol and Drug Abuse Patient Records regulations: The Federal rules restrict any use of the information to criminally investigate or prosecute any alcohol or drug abuse patient.[facility] HospitalIn the event this information is protected by the Federal Confidentiality of Alcohol and Drug Abuse Patient Records regulations: The Federal rules restrict any use of the information to criminally investigate or prosecute any alcohol or drug abuse patient.[facility] HospitalIn the event this information is protected by the Federal Confidentiality of Alcohol and Drug Abuse Patient Records regulations: The Federal rules restrict any use of the information to criminally investigate or prosecute any alcohol or drug abuse patient.[facility] HospitalIn the event this information is protected by the Federal Confidentiality of Alcohol and Drug Abuse Patient Records regulations: The Federal rules restrict any use of the information to criminally investigate or prosecute any alcohol or drug abuse patient.[facility] HospitalIn the event this information is protected by the Federal Confidentiality of Alcohol and Drug Abuse Patient Records regulations: The Federal rules restrict any use of the information to criminally investigate or prosecute any alcohol or drug abuse patient.[facility] HospitalIn the event this information is protected by the Federal Confidentiality of Alcohol and Drug Abuse Patient Records regulations: The Federal rules restrict any use of the information to criminally investigate or prosecute any alcohol or drug abuse patient.[facility] HospitalIn the event this information is protected by the Federal Confidentiality of Alcohol and Drug Abuse Patient Records regulations: The Federal rules restrict any use of the information to criminally investigate or prosecute any alcohol or drug abuse patient.[facility] HospitalIn the event this information is protected by the Federal Confidentiality of Alcohol and Drug Abuse Patient Records regulations: The Federal rules restrict any use of the information to criminally investigate or prosecute any alcohol or drug abuse patient.[facility] HospitalIn the event this information is protected by the Federal Confidentiality of Alcohol and Drug Abuse Patient Records regulations: The Federal rules restrict any use of the information to criminally investigate or prosecute any alcohol or drug abuse patient.[facility] HospitalIn the event this information is protected by the Federal Confidentiality of Alcohol and Drug Abuse Patient Records regulations: The Federal rules restrict any use of the information to criminally investigate or prosecute any alcohol or drug abuse patient.[facility] HospitalIn the event this information is protected by the Federal Confidentiality of Alcohol and Drug Abuse Patient Records regulations: The Federal rules restrict any use of the information to criminally investigate or prosecute any alcohol or drug abuse patient.[facility] HospitalIn the event this information is protected by the Federal Confidentiality of Alcohol and Drug Abuse Patient Records regulations: The Federal rules restrict any use of the information to criminally investigate or prosecute any alcohol or drug abuse patient.[facility] HospitalIn the event this information is protected by the Federal Confidentiality of Alcohol and Drug Abuse Patient Records regulations: The Federal rules restrict any use of the information to criminally investigate or prosecute any alcohol or drug abuse patient.[facility] HospitalIn the event this information is protected by the Federal Confidentiality of Alcohol and Drug Abuse Patient Records regulations: The Federal rules restrict any use of the information to criminally investigate or prosecute any alcohol or drug abuse patient.[facility] HospitalIn the event this information is protected by the Federal Confidentiality of Alcohol and Drug Abuse Patient Records regulations: The Federal rules restrict any use of the information to criminally investigate or prosecute any alcohol or drug abuse patient.[facility] HospitalIn the event this information is protected by the Federal Confidentiality of Alcohol and Drug Abuse Patient Records regulations: The Federal rules restrict any use of the information to criminally investigate or prosecute any alcohol or drug abuse patient.[facility] HospitalIn the event this information is protected by the Federal Confidentiality of Alcohol and Drug Abuse Patient Records regulations: The Federal rules restrict any use of the information to criminally investigate or prosecute any alcohol or drug abuse patient.[facility] Care Teams (unrecognized sec tion [...] GeneralInternal Medicine08/04/14 Marco A Esqueda MD [address] [place], [place] [id number] PhysicianHematology/Oncology11/02/21 Christo Howard, ARCHITECTURAL ASSOCIATE.DEVULCANIZER CHARGER [address] [place] [address] Nurse PractitionerHematology/Oncology11/02/21 Clementine Aguilar, ANITHA [address] [place] [address] Specialty Care CoordinatorHematology/Oncology11/02/21Te MemberRelationship SpecialtyStart DateEnd Date Jamar Fall Jessica, DO PCP - GeneralInternal Medicine08/04/14 Marco A Esqueda MD [address] [place] [address] PhysicianHematology/Oncology11/02/21 Christo Howard, ARCHITECTURAL ASSOCIATE.DEVULCANIZER CHARGER [address] [place] [address] Nurse PractitionerHematology/Oncology11/02/21 Clementine Aguilar, RN [address] [place] [address] Specialty Care CoordinatorHematology/Oncology11/02/21Team MemberRelationship SpecialtyStart DateEnd Date Jamar Fall, DO PCP - GeneralInternal Medicine08/04/14 Marco A Esqueda MD [address] [place] [address] PhysicianHematology/Oncology11/02/21 Christo Howard, ARCHITECTURAL ASSOCIATE.DEVULCANIZER CHARGER [address] [place] [address] Nurse PractitionerHematology/Oncology11/02/21 Clementine Aguilar, RN [address] [place] [address] Specialty Care CoordinatorHematology/Oncology11/02/21Team MemberRelationship SpecialtyStart DateEnd Date Jamar Fall, DO PCP - GeneralInternal Medicine08/04/14 Marco A Esqueda MD [address] [place] [address] PhysicianHematology/Oncology11/02/21 Christo Howard, ARCHITECTURAL ASSOCIATE.DEVULCANIZER CHARGER [address] [place] [address] Nurse PractitionerHematology/Oncology11/02/21 Clementine Aguilar, RN [address] [place] [address] Specialty Care CoordinatorHematology/Oncology11/02/21Team MemberRelationship SpecialtyStart DateEnd Date Jamar Fall, DO PCP - GeneralInternal Medicine08/04/14 Marco A Esqueda MD [address] [place] [address] PhysicianHematology/Oncology11/02/21 Christo Howard, ARCHITECTURAL ASSOCIATE.DEVULCANIZER CHARGER [address] [place] [address] Nurse PractitionerHematology/Oncology11/02/21 Clementine Aguilar, RN [address] [place] [address] Specialty Care CoordinatorHematology/Oncology11/02/21Team MemberRelationship SpecialtyStart DateEnd Date Jamar Fall, DO PCP - GeneralInternal Medicine08/04/14 Marco A Esqueda MD [address] [place] [address] PhysicianHematology/Oncology11/02/21 Christo Howard, ARCHITECTURAL ASSOCIATE.DEVULCANIZER CHARGER [address] [place] [address] Nurse PractitionerHematology/Oncology11/02/21 Clementine Aguilar, ANITHA [address] [place] [address] Specialty Care CoordinatorHematology/Oncology11/02/21Team MemberRelationship SpecialtyStart DateEnd Date Jamar Fall, DO PCP - GeneralInternal Medicine08/04/14 Marco A Esqueda MD [address] [place] [address] PhysicianHematology/Oncology11/02/21 Christo Howard, ARCHITECTURAL ASSOCIATE.DEVULCANIZER CHARGER [address] [place] [address] Nurse PractitionerHematology/Oncology11/02/21 Clementine Aguilar, RN [address] [place] [address] Specialty Care CoordinatorHematology/Oncology11/02/21Team MemberRelationship SpecialtyStart DateEnd Date Jamar Fall, DO PCP - GeneralInternal Medicine08/04/14 Marco A Esqueda MD [address] [place] [address] PhysicianHematology/Oncology11/02/21 Christo Howard, ARCHITECTURAL ASSOCIATE.DEVULCANIZER CHARGER [address] [place] [address] Nurse PractitionerHematology/Oncology11/02/21 Clementine Aguilar, RN [address] [place] [address] Specialty Care CoordinatorHematology/Oncology11/02/21Team MemberRelationship SpecialtyStart DateEnd Date Jamar Fall, DO PCP - GeneralInternal Medicine08/04/14 Marco A Esqueda MD [address] [place] [address] PhysicianHematology/Oncology11/02/21 Christo Howard, ARCHITECTURAL ASSOCIATE.DEVULCANIZER CHARGER [address] [place] [address] Nurse PractitionerHematology/Oncology11/02/21 Clementine Aguilar, ANITHA [address] [place] [address] Specialty Care CoordinatorHematology/Oncology11/02/21Team MemberRelationship SpecialtyStart DateEnd Date Jamar Fall, DO PCP - GeneralInternal Medicine08/04/14 Marco A Esqueda MD [address] [place] [address] PhysicianHematology/Oncology11/02/21 Christo Howard, ARCHITECTURAL ASSOCIATE.DEVULCANIZER CHARGER [address] [place] [address] Nurse PractitionerHematology/Oncology11/02/21 Clementine Aguilar, ANITHA [address] [place] [address] Specialty Care CoordinatorHematology/Oncology11/02/21Team MemberRelationship SpecialtyStart DateEnd Date Jamar Fall, DO PCP - GeneralInternal Medicine08/04/14 Marco A Esqueda MD [address] [place] [address] PhysicianHematology/Oncology11/02/21 Christo Howard, ARCHITECTURAL ASSOCIATE.DEVULCANIZER CHARGER [address] [place] [address] Nurse PractitionerHematology/Oncology11/02/21 Clementine Aguilar, ANITHA [address] [place] [address] Specialty Care CoordinatorHematology/Oncology11/02/21Team MemberRelationship SpecialtyStart DateEnd Date Jamar Fall, DO PCP - GeneralInternal Medicine08/04/14 Marco A Esqueda MD [address] [place] [address] PhysicianHematology/Oncology11/02/21 Christo Howard, ARCHITECTURAL ASSOCIATE.DEVULCANIZER CHARGER [address] [place] [address] Nurse PractitionerHematology/Oncology11/02/21 Clementine Aguilar, ANITHA [address] [place] [address] Specialty Care CoordinatorHematology/Oncology11/02/21Team MemberRelationship SpecialtyStart DateEnd Date Jamar Fall DO PCP - GeneralInternal Medicine08/04/14 Marco A Esqueda MD [address] [place] [address] PhysicianHematology/Oncology11/02/21 Christo Howard, ARCHITECTURAL ASSOCIATE.DEVULCANIZER CHARGER [address] [place] [address] Nurse PractitionerHematology/Oncology11/02/21 Clementine Aguilar, ANITHA [address] [place] [address] Specialty Care CoordinatorHematology/Oncology11/02/21Team MemberRelationship SpecialtyStart DateEnd Date Jamar Fall DO PCP - GeneralInternal Medicine08/04/14 Marco A Esqueda MD [address] [place] [address] [place] [address] PhysicianHematology/Oncology11/02/21 Christo Howard, ARCHITECTURAL ASSOCIATE.DEVULCANIZER CHARGER [address] [place] [address] [place] [address] Nurse PractitionerHematology/Oncology11/02/21 Clementine Aguilar, ANITHA [address] [place] [address] Specialty Care CoordinatorHematology/Oncology11/02/21Team MemberRelationship SpecialtyStart DateEnd Date Jamar Fall DO PCP - GeneralInternal Medicine08/04/14 Marco A Esqueda MD [address] [facility] [place] [address] PhysicianHematology/Oncology4 Christo Howard, ARCHITECTURAL ASSOCIATE.DEVULCANIZER CHARGER [address] [facility] [place] [address] Nurse PractitionerHematology/Oncology11/02/21 Clementine Aguilar, ANITHA [address] [facility] [place] [address] Specialty Care CoordinatorHematology/Oncology11/02/21Team MemberRelationship SpecialtyStart DateEnd Date Jamar Fall DO PCP - GeneralInternal Medicine08/04/14 Marco A Esqueda MD [address] [facility] [place] [address] PhysicianHematology/Oncology11/02/21 Christo Howard, ARCHITECTURAL ASSOCIATE.DEVULCANIZER CHARGER [address] [facility] [address] Nurse PractitionerHematology/Oncology11/02/21 Clementine Aguilar, ANITHA [address] [facility] [place] [address] Specialty Care CoordinatorHematology/Oncology11/02/21Team MemberRelationship SpecialtyStart DateEnd Date Jamar Fall DO PCP - GeneralInternal Medicine08/04/14 Marco A Esqueda MD [address] [place] [address] [place] [address] PhysicianHematology/Oncology11/02/21 Christo Howard APRN.DEVULCANIZER CHARGER [address] [place] [address] [place] [address] Nurse PractitionerHematology/Oncology11/02/21 Clementine Aguilar, ANITHA [address] [place] [address] [place] [address] Specialty Care CoordinatorHematology/Oncology11/02/21Team MemberRelationship SpecialtyStart DateEnd Date Jamar Fall MD [address] [place] [id number] PCP - GeneralInternal Xddktfjc46/15/23Team MemberRelationshipSpecialtyStart Date End Date Jamar Fall MD [address] [place] [id number] PCP - GeneralInternal Omltptfd16/15/23Te MemberRelationshipSpecialtyStart Date End Date Jamar Fall DO PCP - GeneralInternal Medicine08/04/14 Marco A Esqueda MD [address] [place] [address] [place] [address] PhysicianHematology/Oncology11/02/21 Christo Howard APRN.DEVULCANIZER CHARGER [address] [place] [address] [place] [address] Nurse PractitionerHematology/Oncology11/02/21 Clementine Aguilar, ANITHA [address] [place] [address] Specialty Care CoordinatorHematology/Oncology11/02/21Team MemberRelationship SpecialtyStart DateEnd Date Jamar Fall DO PCP - GeneralInternal Medicine08/04/14 Marco A Esqueda MD [address] [place] [address] [place] [address] PhysicianHematology/Oncology11/02/21 Christo Howard APRN.DEVULCANIZER CHARGER [address] [place] [address] [place] [address] Nurse PractitionerHematology/Oncology11/02/21 Clementine Aguilar, ANITHA [address] [place] [address] [place] [address] Specialty Care CoordinatorHematology/Oncology11/02/21 Team Status: Active [...] - GeneralInternal Medicine08/04/14 Marco A Esqueda MD [address] [place] [address] [place] [address] PhysicianHematology/Oncology11/02/21 Christo Howard, ARCHITECTURAL ASSOCIATE.DEVULCANIZER CHARGER [address] [place] [address] Nurse PractitionerHematology/Oncology11/02/21 Clementine Aguilar, ANITHA [address] [place] [address] Specialty Care CoordinatorHematology/Oncology11/02/21Team MemberRelationship SpecialtyStart DateEnd Date Jamar Fall DO PCP - GeneralInternal Medicine08/04/14 Marco A Esqueda MD [address] [place] [address] [place] [address] PhysicianHematology/Oncology11/02/21 Christo Howard, ARCHITECTURAL ASSOCIATE.DEVULCANIZER CHARGER [address] [place] [address] [place] [address] Nurse PractitionerHematology/Oncology11/02/21 Clementine Aguilar RN [address] [place] [address] Specialty Care CoordinatorHematology/Oncology11/02/21 Team Status: Active Member [...] Medicine08/04/14 Marco A Esqueda MD [address] [facility] [place] [address] PhysicianHematology/Oncology11/02/21 Christo Howard, ARCHITECTURAL ASSOCIATE.DEVULCANIZER CHARGER [address] [place] [address] Nurse PractitionerHematology/Oncology11/02/21 Clementine Aguilar, ANITHA [address] [facility] [place] [address] Specialty Care CoordinatorHematology/Oncology11/02/21Team MemberRelationship SpecialtyStart DateEnd Date Jamar Fall DO PCP - GeneralInternal Medicine08/04/14 Marco A Esqueda MD [address] [facility] [place] [address] PhysicianHematology/Oncology11/02/21 Christo Howard, ARCHITECTURAL ASSOCIATE.DEVULCANIZER CHARGER [address] [facility] [place] [address] Nurse PractitionerHematology/Oncology11/02/21 Clementine Aguilar, ANITHA [address] [facility] [place] [address] Specialty Care CoordinatorHematology/Oncology11/02/21Team MemberRelationship SpecialtyStart DateEnd Date Jamar Fall DO PCP - GeneralInternal Medicine08/04/14 Marco A Esqueda MD [address] [facility] [place] [address] PhysicianHematology/Oncology11/02/21 Christo Howard, ARCHITECTURAL ASSOCIATE.DEVULCANIZER CHARGER [address] [place] [address] Nurse PractitionerHematology/Oncology11/02/21 Clementine Aguilar, ANITHA [address] [facility] [place] [address] Specialty Care CoordinatorHematology/Oncology11/02/21Team MemberRelationship SpecialtyStart DateEnd Date Jamar Fall DO PCP - GeneralInternal Medicine08/04/14 Marco A Esqueda MD [address] [facility] [place] [address] PhysicianHematology/Oncology11/02/21 Christo Howard, ARCHITECTURAL ASSOCIATE.DEVULCANIZER CHARGER [address] [facility] [place] [address] Nurse PractitionerHematology/Oncology11/02/21 Clementine Aguilar, ANITHA [address] [facility] [place] [address] Specialty Care CoordinatorHematology/Oncology11/02/21Team MemberRelationship SpecialtyStart DateEnd Date Jamar Fall DO PCP - GeneralInternal Medicine08/04/14 Marco A Esqueda MD [address] [facility] [place] [address] PhysicianHematology/Oncology11/02/21 Christo Howard, ARCHITECTURAL ASSOCIATE.DEVULCANIZER CHARGER [address] [facility] [place] [address] Nurse PractitionerHematology/Oncology11/02/21 Clementine Aguilar, ANITHA [address] [place] [address] [place] [address] Specialty Care CoordinatorHematology/Oncology11/02/21Team MemberRelationship SpecialtyStart DateEnd Date Jamar Fall DO [address] [place] [phone] PCP - GeneralInternal Vjtvjuay67/15/23Team MemberRelationshipSpecialtyStart Date End Date Jamar Fall DO [address] [place] [address] PCP - GeneralInternal Tvzxqxum32/15/23 Reason for Visit (unrecogniz ed section and content) ReasonCommentsLab OrdersReasonCommentsMedication QuestionLupron Start DateReason Onset DateCommentsOpened In Error2ReasonCommentsCare Coordination Testosterone ResultsReasonCommentsMedication AuthorizationXtandiReasonComments Medication UpdateXtandi free drugReasonCommentsCare CoordinationCovid Vaccine ReasonCommentsOral Anti-cancer Agent EducationEnzalutamideReasonCommentsCare CoordinationMedication Start Date - EnzalutamideReasonCommentsCare Coordination Medication UpdateReasonCommentsProstate Cancer2 week follow upSpecialtyDiagnoses / ProceduresReferred By ContactReferred To Contact Diagnoses Malignant neoplasm of prostate (HCC) Procedures DENOSUMAB INJECTION Marco A Esqueda MD [address] [place] [address] [place] [address] Himanshu Treat Ariella [address] [place] [address] Referral IDStatusReasonStart DateExpiration DateVisits RequestedVisits [id number]/202212/[id number] CoordinationRefill QuestionReasonCommentsProstate Cancer1 month follow upReason CommentsProstate CancerFollow upReasonCommentsProstate Cancer3 month follow up ReasonCommentsProstate CancerReasonCommentsProstate CancerFollow upReason CommentsSuspicious Skin LesionSpecialtyDiagnoses / ProceduresReferred By Contact Referred To ContactDermatology Diagnoses lesion of skin of R ear Marco A Esqueda MD [address] [place] [address] [place] [address] Lety Holguin MD [address] [place] [address] Referral IDStatusReasonStart DateExpiration DateVisits RequestedVisits [id number] Cancer3 month follow upEstablished PatientReasonCommentsRefill RequestReasonOnset DateComments Refill Ijdltll66/16/2024ReasonOnset DateCommentsRefill Xmsweny06/23/2024Reason Onset DateCommentsLab Dysbbu9007/25/2024ReasonCommentsSkin Check (unrecognized sect ion and content) No Status Records FoundNo Status Records FoundNo Status Records FoundNo Status Records FoundNo Status Records FoundNo Status Records Found INFORMATION SOURCE (unrecogn ized section and content) DATE CREATED AUTHOR 10/31/2022 [facility] DATE CREATED AUTHOR AUTHOR'S ORGANIZ ATION 03/02/2024 [facility] DATE CREATED AUTHOR AUTHOR'S ORGANIZ ATION 02/28/2025 [facility] DATE CREATED AUTHOR AUTHOR'S ORGANIZ ATION 04/01/2025 [facility] DATE CREATED AUTHOR AUTHOR'S ORGANIZ ATION 04/07/2025 [facility] DATE CREATED AUTHOR AUTHOR'S ORGANIZ ATION 05/24/2025 [facility] Inactive Administered Medications - up to 3 most recent administrations Administered Medications (un recognized section and content) Medication OrderMAR ActionAction DateDoseRateSite denosumab 120 mg injection (XGEVA) 120 mg, SUBCUTANEOUS, ONCE, 1 dose, On [place] 11/02/23 at 1000, REFRIGERATE Given11/02/2023 9:50 AM DQL150 mgArm, Left Goals (unrecognized section and content) [...] BE BASED ON THE PRIMARY CLINICAL RECORDS. [facility] [employer] [facility]. provides no warranty or guarantee of the accuracy or completeness of information in this document.
--- NOTE | 2025-06-18 08:46 | PM.CN ---
Consult Note: HPI Data of Consult Patient: known to practice within the last 3 years Consult date: 06/18/25 Requesting Physician: Cheryl Cox NP Primary Care Provider: Non-Staff Physician, MD Consult Narrative Reason for consult: neck pain Narrative: Rajesh Felix a pleasant 80 year old male presents for evaluation of chronic left sided neck pain. has failed to benefit from >6 weeks of PT and provider guided HEP, heat, ice, tylenol, and topical NSAIDs. recent cervical xray and MRI consistent with multilevel degenerative changes and cervical stenosis. pt recently underwent left C3-4 C4-5 TFESI with at least 80% improvement ongoing. notes pain very tolerable, easy to ignore, just mild ache. pain 3/10 with tiwsting and looking up and down. denies numbness tingling weakness. cc:: CC: Cheryl Cox NP Review of Systems ROS Musculoskeletal Reports: neck pain; Denies: extremity pain PFSH PFSH Medical History Anemia ?D64.9 - Anemia, unspecified (ICD-10) History of blood transfusion ?Z92.89 - Personal history of other medical treatment (ICD-10) Sleep apnea ?G47.30 - Sleep apnea, unspecified (ICD-10) COVID-19 ?U07.1 - COVID-19 (ICD-10) Prostate cancer ?C61 - Malignant neoplasm of prostate (ICD-10) Coronary artery disease ?I25.10 - Atherosclerotic heart disease of [place] coronary artery without angina pectoris (ICD-10) Diabetes ?E11.9 - Type 2 diabetes mellitus without complications (ICD-10) Arthritis ?M19.90 - Unspecified osteoarthritis, unspecified site (ICD-10) Neck pain ?M54.2 - Cervicalgia (ICD-10) Surgical History 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 - Presence of aortocoronary bypass graft (ICD-10) History of appendectomy ?Z90.49 - Acquired absence of other specified parts of digestive tract (ICD-10) S/P prostatectomy ?Z90.79 - Acquired absence of other genital organ(s) (ICD-10) History of colonoscopy ?Z98.890 - Other specified postprocedural states (ICD-10) S/P epidural steroid injection ?Z92.241 - Personal history of systemic steroid therapy (ICD-10) Family History Other Cancer Family history of myocardial infarction Social History Within the past year, how often did you have a drink containing alcohol: 4 or more times a week Within the past year, how many standard drinks containing alcohol did you have on a typical day: 1 or 2 Total score: 0 Score interpretation: A score less than 4 is consistent with normal alcohol consumption. Smoking status: Never smoker Non-prescribed substance use: denies use Previous occupational history: [employer] Highest level of school completed/degree received: Associate degree: occupational, technical, vocational program Meds Home Medications and Allergies Home Medications ?Medication ?Instructions ?Recorded ?Confirmed ?Type CALCIUM & D3 .QD 12/13/23 History aspirin 81 mg capsule 81 mg PO DAILY 12/13/23 06/09/25 History atorvastatin 40 mg tablet 40 mg PO DAILY 12/13/23 06/09/25 History enzalutamide 80 mg tablet (Xtandi) 80 mg PO DAILY 12/13/23 06/09/25 History glimepiride 1 mg tablet 0.5 mg PO DAILY 12/13/23 06/09/25 History metformin 500 mg tablet 1,000 mg PO BID 12/13/23 06/09/25 History metoprolol succinate 25 mg 25 mg PO Q12H 12/13/23 06/09/25 History tablet,extended release 24 hr multivitamin with iron (Daily 1 tab PO DAILY 12/13/23 06/09/25 History Vites/Iron tablet) lisinopril 20 1 tab PO QPM 04/01/24 06/09/25 History mg-hydrochlorothiazide 12.5 mg tablet Allergies Allergy/AdvReac Type Severity Reaction Status Date / Time Penicillins Allergy Mild Rash Verified 06/09/25 07:16 Exam Constitutional Documenting provider has reviewed patient's vital signs: yes Common normals: no apparent distress, oriented x3 and alert General appearance: cooperative HENMT Common normals: normocephalic, hearing grossly normal bilaterally and moist oral mucous membranes Head and scalp: normocephalic Eye Common normals: PERRL Pupil: PERRL Neck & C-Spine Common normals: full ROM General: normal visual inspection Cervical spine: pain with cervical ROM and cervical spine tenderness Other: negative spurlings strength 5/5 in BUE sensation intact BUE Chest Common normals: inspection of chest normal Respiratory Common normals: normal respiratory effort, no retractions and no use of accessory muscles Neuro Common normals: oriented x3 Sensorium/orientation: alert Psych Common normals: mental status grossly normal, thought process normal, cooperative, affect normal, speech normal and activity/motor behavior normal Speech: normal speech Thought process: normal thought process Results Additional Findings Additional findings: If on a controlled substance or opioids, I have checked an [place] report on this patient and there are no aberrancies noted in the prescribing history.??If on a controlled substance or opioid a drug screen was completed and reviewed within the last year, and if there has not been a drug screen completed we ordered one today to monitor higher risk, state monitored pain medication use. As part of providing excellent, safe, comprehensive care, the following was completed at our patient's visit: 1. A medication reconciliation and review to ensure accurate knowledge of current/active medications, including asking our patients to inform us about any [id number] medications or herbal remedies/nutritional supplements/alternative remedies. 2. A review to specifically ensure our patients have had annual screening for screening for depression, screening for tobacco use, and screening for unhealthy alcohol use. For concerning screenings had a discussion with the patient, provided patient education, and recommended follow-up with primary care provider when appropriate. If patient noted with a risk of falling, they received education on strength, gait, and balance training to prevent future risk of falling. Portions of this note may have been carried over from the previous visit and updated as appropriate. Please note this office utilizes paper charting in addition to the electronic medical record. A list of current medications, vitals, and PMH is available there as the clinical staff outside of myself do not have access to [facility] charting during the clinic day operations. As part of providing quality comprehensive care the current medications, vitals, and PMH were reviewed in the paper chart. Assessment and Plan Assessment and Plan (1) Cervical spinal stenosis: Assessment and Plan: 06-09-25 left C3-4 C4-5 TFESI >50% improvement ongoing (2) Cervical radiculopathy: (3) Cervical spondylosis: (4) Myofascial pain: Plan The patient has had over 3 months of moderate to severe neck pain with functional impairment and inadequate response to conservative care including NSAIDS (unless there are contraindication such as concurrent blood thinners), multiple oral or topical pain medications, and home exercise program/physical therapy.? Patient has completed >6 weeks of guided home exercise program and/or formal physical therapy program without relief of their symptoms.? I have reviewed the imaging of the cervical spine and no red flags were identified.? The Oswestry Disability Index was completed, and the patient scored a 6%.? status post left C3-4 C4-5 TFESI with significant relief. pt not interested in NS consultation or surgical intervention. pt has previously failed multilevel MBBs for facet mediated pain but finds benefit to cervical TFESIs. no medication changes. f/u 3 months, sooner if needed.
== END 2025-06-18 08:31 | disposition home or self-care (01) ==
LOC: PM 08:31
PROVIDERS: Visit Provider Nurse Practitioner
DX: M48.02 Spinal stenosis, cervical region (principal); M54.12 Radiculopathy, cervical region; M47.812 Spondylosis without myelopathy or radiculopathy, cervical region; M79.18 Myalgia, other site
CPT/HCPCS: G0463

== ENCOUNTER 2025-06-19 09:28 | Outpatient (OUT) | payer MEDICARE, OTHER, SELFPAY ==
--- OUTSIDE RECORDS SUMMARY | 2025-06-19 09:31 | XMS_ITS | Encounter Summary ---
Author Organization [facility] Address [address] [place], [place] [id number] Care Team Providers Care Front Desk Person Name Role Phone Jamar Jones DO Primary Care Provider [phone] Galina Wall APRN.SUPPORT TECHNICIAN Unavailable [phone] Clementine Aguilar RN Unavailable [phone] Saul Galdamez MD Unavailable [phone] Source Comments In the event this information is protected by the Federal Confidentiality of Alcohol and Drug AbusePatient Records regulations: The Federal rules restrict any use of the information to criminally investigate or prosecute any alcohol or drug abuse patient.[facility] Reason for Visit * ReasonCommentsRefill Request Encounter Details DateTypeDepartmentCare Team (Latest Contact Info)Jbndocrizfv85/26/2025Refill Hematology/Oncology [address] [place] [address] Aida Luo, [facility] [address] [place] [address] Refill Request Social History Tobacco UseTypesPacks/DayYears UsedDateSmoking Tobacco: NeverPassive Smoke Exposure: NeverSmokeless Tobacco: NeverAlcohol UseStandard Drinks/WeekComments Yes0 (1 standard drink = 0.6 oz pure alcohol)1 day/wkPHQ-2AnswerDate Recorded PHQ-2 gwuos503/04/2025Area Deprivation IndexAnswerDate RecordedNational Score (1-100), lower number is lower wxoz815102/02/2023State Score (1-10), lower number is lower boje4493Data from: https://www.neighborhoodatlas.[facility]/. Last address used for [address]/02/2023Sex and Gender InformationValueDate Recorded Sex Assigned at KhmtbQlvj51/29/2022 11:48 AM EDTLegal XpeMcyw7308/04/2014 8:03 AM ESTGender FbuplhxuWvtw16/29/2022 11:48 AM EDTSexual OrientationStraight 02/11/2022 11:48 AM EDTdocumented as of this encounter Functional Status * Are you deaf or do you have serious difficulty hearing?AnswerDate of JgfrvppilwKjdgquGy07/03/2015 10:35 AM Santiago Palacios LPN * Are you blind or do you have serious difficulty seeing, even when wearing glasses?AnswerDate of PdaywlvuytMjwhqwEgo87/03/2015 10:35 AM Santiago Palacios LPN * Do you have serious difficulty walking or climbing stairs?AnswerDate of PsjgfvgidtUmnutyAj14/03/2015 10:35 AM Santiago Palacios LPN * Do you have difficulty dressing or bathing?AnswerDate of AssessmentAuthorNo 08/19/2014 10:35 AM Santiago Palacios LPN * Because of a physical, mental, or emotional condition, do you have difficulty doing errands alone such as visiting a doctor's office or shopping?AnswerDate of PbyxgdlcpfGzejqnKw46/03/2015 10:35 AM Santiago Palacios LPN documented as of this encounter Mental Status * Because of a physical, mental, or emotional condition, do you have serious difficulty concentrating, remembering, or making decisions?AnswerEntry Date XoxbxyAa66/03/2015 10:35 AM Santiago Palacios LPN documented in this encounter Miscellaneous Notes * Telephone Encounter - Aida Luo RPh - 06/11/2025 4:07 PM EST I am very confused because he has never filled this script at 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 Josh Luo, PharmD, BCOP * Telephone Encounter - Sheela Toney MA - 06/11/2025 3:17 PM EST Zenon joshua. [facility] called left message on the refill line wanting a new script to be sent to them. Her name is Mari who called and left the message stating she's needing a new script for Xtandi. She was saying some of the directions were missing on the other script that was sent over. Please call at [phone] or fax [phone]. Sheela Toney MA documented in this encounter Plan of Treatment DateTypeDepartmentCare Team (Latest Contact Info)Byexptftlgk81/22/2026 11:[address] [facility] [address] [place] [address] 3 month follow up with xgeva inj08/14/2025 11:00 AM ESTVisit (SP) Office Hematology/Oncology [address] [place] [address] Chary Hodge APRN.SUPPORT TECHNICIAN [address] [facility] [place] [address] 3 month follow up with xgeva inj08/14/2025 11:30 AM ESTInfformerly [facility] Hematology/Oncology [address] [place] [address] [place] [address] 3 month follow up with xgeva injdocumented as of this encounter Visit Diagnoses Diagnosis Malignant neoplasm of prostate (HCC) Malignant neoplasm of prostate documented in this encounter Care Teams Team MemberRelationsKaiser Foundation HospitalpecialtyStart DateEnd Date Jamar Jones DO PCP - GeneralInternal Medicine08/04/14 Galina Wall APRN.SUPPORT TECHNICIAN [address] [place] [address] [place] [address] Nurse PractitionerHematology/Oncology11/02/21 Clementine Aguilar, ANITHA [address] [place] [address] [place] [address] Specialty Care CoordinatorHematology/Oncology11/02/21 Saul Galdamez MD [address] [place] [address] [place] [address] PhysicianHematology/Oncology01/21/25documented as of this encounter
--- OUTSIDE RECORDS SUMMARY | 2025-06-19 09:31 | XMS_ITS | Clinical Summary ---
Author Organization [employer] [facility] tem Address [id number] [address] [place] [address] Care Team Providers Care Dumper Bailer Operator Name Role Phone Unavailable Primary Care Provider Unavailabl e Allergies Active AllergyReactionsCriticalityNoted DateCommentsPenicillinsOther (See Comments)Qhpdio6208/06/2014 Other reaction(s): Unknown Medications MedicationSigDispense QuantityRefillsLast FilledStart [...] standard drink = 0.6 oz pure alcohol)ChildcareAnswerDate FtovtqevVsngnxhijIizqrmv70/12/2019EmploymentAnswer Date OtkgssxgCfuygjdijuYrrjtmk47/12/2019Purpose - LifeAnswerDate RecordedPurpose and direction in pzseCbceduc64/11/2021Sex and Gender InformationValueDate RecordedSex Assigned at BirthNot on fileLegal PcnZrpp1202/19/2015 11:32 AM EDT Gender IdentityNot on fileSexual OrientationNot on file Last Filed Vital Signs Vital SignReadingTime TakenCommentsBlood Hzxfghvu427/6403 9:04 AM EDT Bidqj2316 9:04 AM EDTTemperature--Respiratory Rate--Oxygen Npxtwedcrh58% 09/26/2019 8:59 AM EDTInhaled Oxygen Concentration--Enbxbk363.4 kg (223 lb 9.6 oz)09/26/2019 8:59 AM GUGGeccnp193.9 cm (5' 6.5 )09/26/2019 8:59 AM EDTBody Mass Index35.55009/26/2019 8:59 AM EDT Plan of Treatment Health MaintenanceDue DateLast DoneCommentsDepression Ruqdowrvy82/31/1958Tobacco Kupndioxh88/31/1958Zoster (Shingles) Vaccine (1 of 2)02/14/1996Fall Risk Mxovskcsd14/31/2011DTaP,Tdap and Td Vaccines (1 - Tdap)RSV ( or age 60+ yrs) (1 - 1-dose 75+ series)2021Influenza Vaccine 03/17/2025 Medical Devices Not on file Insurance
--- OUTSIDE RECORDS SUMMARY | 2025-06-19 09:31 | XMS_ITS | Clinical Summary ---
Author Organization [facility] Address [address] [place] [address] Care Team Providers Care Delivery Architect Name Role Phone Jamar Jones DO Primary Care Provider [phone] Allergies Active AllergyReactionsCriticalityNoted DateCommentsPenicillin 06/25/2001 Other Reaction(s): HIVES, Unknown Pztjsctpqmp71/20/2002 Other Reaction(s): Unknown Medications MedicationSigDispense QuantityRefillsLast FilledStart [...] g 08/28/2023ctive Active Problems ProblemNoted DateDiagnosed DateVasomotor kxamqxbr89/20/8832Lyyxhddauz67/16/2023 Coronary gsmswpgetskkixah36/16/2023 Overview (06/01/2023): Jun 01, 2016 Entered By: HARVINDER TORIBIO Comment: cabg X 3 (07/2014) Diabetes sxbfmgwi46/16/2023Impaired ysqbntf0306/01/20237981Pvanmpw80/16/2023Essential wmgihbajdfrf68/16/2023Sensorineural hearing loss, ciooesmyb32/16/2023Sleep apnea 06/01/2023Type 2 diabetes mellitus without rbldixzzfujvx65/16/2023Nonrheumatic aortic (valve) yyosqbga57/16/2023Malignant neoplasm of jqknmapp91/21/2015 Overview (06/01/2023): Jun 01, 2016 Entered By: HARVINDER TORIBIO Comment: PROSTATECTOMY 10/2014 Resolved Problems ProblemNoted DateDiagnosed DateResolved DatePrimary zayvedsrzmxx99/16/2023 06/01/2023 Immunizations ImmunizationAdministration DatesNext DuePneumococcal Polysaccharide PPSV23 06/12/2017,06/01/2017,04/29/2015,06/07/2010Zoster, Mngmsolnxxe55/04/2019, 06/11/2018 Family History Medical HistoryRelationNameCommentsHeart failureFatherCancerMotherRelationName StatusCommentsFatherDeceasedMotherDeceased [...] InformationValueDate RecordedSex Assigned at BirthNot on fileLegal LxiDlfa8009/28/2022 8:21 PM EDTGender IdentityNot on file Sexual OrientationNot on file Last Filed Vital Signs Vital SignReadingTime TakenCommentsBlood Zskplrjo715/7803/ 8:23 AM EDT Pulse--Temperature--Respiratory Rate--Oxygen Saturation--Inhaled Oxygen Concentration--Zflqwx78.3 kg (208 lb)06/05/2023 11:24 AM DUUMovifi767.9 cm (5' 6.5 )06/05/2023 11:24 AM ESTBody Mass Index33.0706/05/2023 11:24 AM EST Plan of Treatment DateTypeDepartmentCare Team (Latest Contact Info)Hkwvrbuyloo38/13/2026 10:30 AM EDTOffice Visit [facility] [address] [place] [address] Deisy Boo APRN-ADMISSION NURSE [address] [place], [place] [id number] Health MaintenanceDue DateLast DoneCommentsCOVID-19 Vaccine ( season) 510/12/2021, 01/21/2022, 05/17/2021, Additional history existsInfluenza Vaccine (#1)509/04/2024, 05/01/2023, 04/28/2022, Additional history existsPneumococcal Vaccine: 65+ HbaodQhftyjyqu89/27/2017, 06/01/2017, 05/11/2015, Additional history exists Insurance MemberSubscriberPlan / Payer (Effective 2012-Present)Name:Rajesh Felix Member ID:[id number] Relation to Subscriber:SelfName:Rajesh Felix Subscriber ID:[id number] Payer ID:STATE Group ID:Not on file Type:Medicare Address: [address] [id number] Care Teams Team MemberRelationshipSpecialtyStart DateEnd Date Jamar Jones, [address] [facility] [place] [address] PCP - GeneralInternal Vbmqzucb91/15/23
--- OUTSIDE RECORDS SUMMARY | 2025-06-19 09:31 | XMS_ITS | Encounter Summary ---
Author Organization [facility] Address [address] [address] Care Team Providers Care [employer] Special Education Teacher Name Role Phone Jamar Jones DO Primary Care Provider [phone] Encounter Details DateTypeDepartmentCare Team (Latest Contact Info)Tmbdxmfjmhu61/21/2025Results Follow-Up [facility] [address] [facility] [place] [address] Katelyn Quiroz CNP [address] [place] [address] Lexiscan Stress Myocardial Perfusion Imaging Social History Tobacco UseTypesPacks/DayYears UsedDateSmoking Tobacco: NeverSmokeless Tobacco: NeverAlcohol UseStandard Drinks/WeekCommentsNot Currently0 (1 standard drink = 0.6 oz pure alcohol)[place] Safety & EnvironmentAnswerDate RecordedFear of Current or Ex-PartnerNot on file09/07/2023Emotionally AbusedNot on file09/07/2023hysically AbusedNot on file09/07/2023Sexually AbusedNot on file09/07/2023hysically or Sexually AbusedNot on file09/07/2023Sex and Gender InformationValueDate Recorded Sex Assigned at NiekePwbs70/03/2025 11:14 AM EDTLegal YajVblp3001/12/2022 11:25 PM EDTGender MzstywqeApls73/03/2025 11:14 AM EDTSexual OrientationHeterosexual or Mfekteip69/03/2025 11:14 AM EDTdocumented as of this encounter [...] MemberRelationshipSpecialtyStart DateEnd Date Jamar Jones DO [address] [place] [address] PCP - Kuucwhb74/12/22documented as of this encounter
--- OUTSIDE RECORDS SUMMARY | 2025-06-19 09:31 | XMS_ITS | Clinical Summary ---
Author Organization [facility] Address [address] [place] [address] Care Team Providers Care Grease Cup Filler Name Role Phone Jamar Jones DO Primary Care Provider [phone] Allergies Active AllergyReactionsCriticalityNoted DateCommentsPenicillinsHives,Other, WmfxukvIuxnnq75/10/2001 Other reaction(s): Unknown Other Reaction(s): HIVES, Unknown [...] DateDiagnosed DateArthritis of right hand03/20/2025ilateral carpal tunnel xinlnnzu01/04/2025arpal tunnel kfgichwm05/04/2025Paresthesia of both hands03/20/2025ervical tdvraubcuuw76/11/2024Mass of skin of left shoulder 03/27/2024Neck pain03/27/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 She may hold aspirin 5-7 days prior and resume post op. Please monitor hemodynamicscarefully and prevent any major fluid shifts. History of zbxfrnggjamk17History of kidney qxrslh2906/22/2023 06/22/2023History of prostate txtkaq95Hyperlipidemia06/22/2023 06/22/2023 Assessment & Plan (03/29/2024 3:07 PM EDT): Lipid abnormalities are stable continue Lipitor 40 mg daily lipid profile is well-controlled and liver function is normal Microscopic fhubacfjo41NocturiaRising PSA following treatment for malignant neoplasm of awonjilj06 Vasomotor xcdfpndv20nisocoriaoronary bjbzjakzlvpttyrk67 Overview (06/22/2023): Jun 01, 2016 Entered By: [...] as tolerated and continue all medications. Essential jywcwehbkulx00 Assessment & Plan (03/29/2024 3:07 PM EDT): Hypertension is well-controlled at 127/51 Continue lisinopril/hydrochlorothiazide and metoprolol. Renal function normal Impaired csisndj90Nonrheumatic aortic (valve) stenosis Assessment & Plan (03/29/2024 3:06 PM EDT): Reviewed echocardiogram from July 08 moderate aortic stenosis noted and reviewed echo with patient and his No concerning symptoms at this time patient would like symptoms including palpitations, lightheadeddizziness, syncope, chest pain, worsening shortness of breath and he voiced understanding Monitor with echocardiogram Roshktk72Sensorineural hearing loss, tsndivgis39/16/2023 06/22/2023Sleep apneaType 2 diabetes mellitus without xmyohcdbxbzdn58iabetes nnvjtdfk74arcinoma of ssyalvws02 Overview (06/22/2023): 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 at [address] [address] Josie Soni MA Mitral valve stenosis and aortic valve stenosis (Primary Dx); Coronary artery disease, unspecified vessel or lesion type, unspecified whether angina present, unspecified whether [place] or transplanted heart; ALEXANDER (dyspnea on exertion)04/06/2025Results Follow-Up [facility] [address] [place] [address] Katelyn Quiroz CNP Lexiscan Stress Myocardial Perfusion Zpmfnxf1704/04/2025Orders Only [facility] [address] [place] [address] ProviderCarmel MD 03/20/2025 9:20 AM EDTOffice Visit [facility] [address] [place] [address] Katelyn Quiroz CNP Mixed hyperlipidemia (Primary Dx); 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; Coronary artery disease involving [place] coronary artery of [place] heart without angina pectoris; Adult general medical exam; Essential hypertension; Other fatigue; Nonrheumatic aortic (valve) stenosis; Hx of CABGfrom Last 3 Months Family History Medical HistoryRelationNameCommentsCoronary artery diseaseFatherRelationName StatusCommentsFather Social History Tobacco UseTypesPacks/DayYears UsedDateSmoking Tobacco: NeverSmokeless Tobacco: Never Tobacco Cessation:Counseling Given: Not Answered Alcohol UseStandard Drinks/WeekCommentsNot Currently0 (1 standard drink = 0.6 oz pure alcohol)[place] Safety & EnvironmentAnswerDate RecordedFear of Current or Ex-PartnerNot on file09/07/2023Emotionally AbusedNot on file09/07/2023hysically AbusedNot on file09/07/2023Sexually AbusedNot on file09/07/2023hysically or Sexually AbusedNot on file09/07/2023Sex and Gender InformationValueDate Recorded Sex Assigned at WdrxnOzse55/03/2025 11:14 AM EDTLegal DlyMayj2201/12/2022 11:25 PM EDTGender LznhtzxnPfng95/03/2025 11:14 AM EDTSexual OrientationHeterosexual or Gtrqugzx76/03/2025 11:14 AM EDT Last Filed Vital Signs Vital SignReadingTime TakenCommentsBlood Opwueqaj432/5809 9:28 AM EDT Odxsp5601 9:28 AM EDTTemperature--Respiratory Rate--Oxygen Wvieckvzyb52% 03/20/2025 9:28 AM EDTInhaled Oxygen Concentration--Eyhxpe90.2 kg (201 lb) 03/20/2025 9:28 AM BELNjoiil831.1 cm (5' 5 )03/20/2025 9:28 AM EDTBody Mass Index33.45003/20/2025 9:28 AM EDT Plan of Treatment Health MaintenanceDue DateLast DoneCommentsDiabetes: Hemoglobin A1C1946 Medicare Annual Wellness (AWV)1946Diabetes: Retinopathy Screening 02/14/1956Depression Ncmwgqfzc16/31/1958Diabetes: Urine Protein Screening 1965Fall Risk Jhglejrbh64/31/2011COVID-19 Vaccine ( season) , 04/21/2022, 01/21/2022, Additional history existsInfluenza Vaccine (#1)509/04/2024, 05/01/2023, 04/28/2022, Additional history existsAdult Hihyura71/04/2024, 06/19/2013, 04/24/2013, Additional history existsPneumococcal Vaccine: 50+ TvwwtAubqwekuj62/27/2017, 06/01/2017, 05/11/2015, Additional history existsZoster AdanwysvBgvjthany59/04/2019, 06/11/2018, 06/27/2012HIB VaccinesAged OutNo longer eligible based [...] Procedures Procedure NamePriorityDate/TimeAssociated DiagnosisCommentsLEXISCAN STRESS MYOCARDIAL PERFUSION LADDYBERcnxikb89/18/2025 4:35 PM EDT from Last 3 Months Results * Lexiscan Stress Myocardial Perfusion Imaging (04/03/2025 4:35 PM EDT) Anatomical RegionLateralityModalityOther Narrative Authorizing ProviderResult TypeResult StatusHistorical Provider MDCV STRESS PROCEDURESFinal Result from Last 3 Months Insurance Care Teams Team MemberRelationshipSpecialtyStart DateEnd Date Jamar Jones DO [address] [place] [address] PCP - Iywkcgs24/12/22
--- OUTSIDE RECORDS SUMMARY | 2025-06-19 09:31 | XMS_ITS | Clinical Summary ---
Author Organization [facility] Address [address] [place], [place] [address] Care Team Providers Care Plastic Battery Assembler Name Role Phone Jamar Jones DO Primary Care Provider [phone] Galina Wall APRN.INFORMATION COORDINATOR Unavailable [phone] Clementine Aguilar RN Unavailable [phone] Saul Galdamez MD Unavailable [phone] Allergies Active AllergyReactionsCriticalityNoted YblsCuqvfknkVryhhecdhokKcqvcje31/21/2015 XnayojusvvrEpnspwo92/20/2002 Medications MedicationSigDispense QuantityRefillsLast FilledStart DateEnd DateStatus lisinopril-hydrochlorothiazide [...] 1,000 mg by mouth once daily. 08/17/2021ctive Htlcibatxntsf-Siljqism-Rjatqd (MULTIVITAMIN 50 PLUS) tab Take 1 tablet [...] Active Problems ProblemNoted DateDiagnosed DateMalignant neoplasm of vfeyybup44/21/2015 Encounters DateTypeDepartmentCare DryqZixtzdjvrmv29/26/2025Refill Hematology/Oncology [address] [place] [address] [place] [address] Aida Luo [facility] Refill Ppbdrlj6006/09/2025Refill Hematology/Oncology [address] [place] [address] [place] [address] Saul Galdamez MD Refill Vrcwsei4306/02/2025Refill [facility] [address] [place] [address] Aida Luo [facility] Refill Yixgyay2605/26/2025Refill [facility] [address] [place] [phone] Saul Galdamez MD Refill Request (Xtandi)05/22/2025 11:30 AM ESTInfusion Center Hematology/Oncology [address] [place] [address] [place] [address] Malignant neoplasm of prostate (HCC) (Primary Dx)05/22/2025 11:00 AM ESTVisit (SP) Office Hematology/Oncology [address] [place] [address] [place] [address] Chary Hodge, ERECTION SHOP SUPERVISOR.INFORMATION COORDINATOR Malignant neoplasm of prostate (HCC) (Primary Dx); Anemia, unspecified type; Other osteoporosis without current pathological fracture; Secondary malignant neoplasm of bone (HCC); Encounter for antineoplastic chemotherapy; Lactose lcbxwkcaatb82/06/5850Eokoib46/28/2025Travelfrom Last 3 Months Immunizations ImmunizationAdministration DatesNext DueAS03 xdyhbtkw45/11/2018COVID-19 original vaccine, full dose, monovalent (MODERNA)01/21/2022,05/17/2021,09/22/2020, 08/24/2020OVID- [...] 23 valent (PNEUMOVAX 23)06/12/2017,06/01/2017,04/29/2015,06/23/2010,06/07/2010, 01/14/2010pneumococcal vaccine, unspecified qpjlbhirhlw75/22/2010respiratory syncytial virus (RSV) vaccine, bivalent (ABRYSVO)04/26/2024tetanus diphtheria (Td) vaccine, adult, non-hwhcxgji76/04/2013tetanus diphtheria (Td) vaccine, adult, unspecified auiubstwexa34/27/2003tetanus diphtheria (Td) vaccine, age 7+ yr, 5 Lf tetanus, PF (TENIVAC)04/24/2013tetanus diphtheria pertussis (Tdap) vaccine, age 7+ yr (ADACEL, BOOSTRIX)04/25/2024zoster (RZV) vaccine, recombinant (SHINGRIX)08/20/2018,06/11/2018zoster (ZVL) vaccine, live (ZOSTAVAX)06/27/2012 Family History Medical HistoryRelationCommentsCancerMotherCancerRelationStatusCommentsMother Social History Tobacco UseTypesPacks/DayYears UsedDateSmoking Tobacco: NeverPassive Smoke Exposure: NeverSmokeless Tobacco: Never Tobacco Cessation:Counseling Given: Not Answered Alcohol UseStandard Drinks/WeekCommentsYes0 (1 standard drink = 0.6 oz pure alcohol)1 day/wkPHQ-2AnswerDate RecordedPHQ-2 atetf366/04/2025Area Deprivation IndexAnswerDate RecordedNational Score (1-100), lower number is lower risk80 02/02/2023State Score (1-10), lower number is lower pbmp3703Data from: https://www.neighborhoodatlas.[facility].edu/. Last address used for b[address]az[address]losl[address]02/02/2023Sex and Gender InformationValueDate Recorded Sex Assigned at CjelgGcys21/29/2022 11:48 AM EDTLegal ByqVmkx0008/04/2014 8:03 AM ESTGender QgquqpfxNprf76/29/2022 11:48 AM EDTSexual OrientationStraight 02/11/2022 11:48 AM EDT Last Filed Vital Signs Vital SignReadingTime TakenCommentsBlood Ieujcmup814/56107/22/2024 10:35 AM EST Gcbqs503305/22/2025 10:35 AM VRPNkopbjypgws27.2 ??C (97.2 ??F)05/22/2025 10:35 AM ESTRespiratory Ysoi535607/22/2024 10:35 AM ESTOxygen Zthdbpsdgg62%05/22/2025 10:35 AM ESTInhaled Oxygen Concentration--Pdwxay75.3 kg (203 lb 7.8 oz)05/22/2025 10:35 AM JPPOhwxlx121.6 cm (5' 5.98 )05/22/2025 10:35 AM ESTBody Mass Index32.86 05/22/2025 10:35 AM EST Plan of Treatment DateTypeDepartmentCare Team (Latest Contact Info)Iirsfctkbfq90/22/2026 11:30 AM ESTOffice Visit [facility] [address] [place] [address] [place] [address] 3 month follow up with indu inj08/14/2025 11:00 AM ESTVisit () Office Hematology/Oncology [address] [place] [address] Chary Hodge APRN.INFORMATION COORDINATOR [address] [place] [address] 3 month follow up with xgeva inj08/14/2025 11:30 AM ESTInfformerly [facility] Center Hematology/Oncology [address] [place] [address] [place] [address] 3 month follow up with xgeva injHealth MaintenanceDue DateLast DoneComments Anxiety Cwcgcdqlr51/31/1964Depression Djludmidz13/31/1964Medicare Annual Wellness Visit01/14/2011dvance Directive Ujpbhivyha43/01/2025Covid-19 Vaccine ( season)51, 04/21/2022, 01/21/2022, Additional history existsDiabetes Ypzfkyigf98, 2025, 10/31/2024, Additional history existsDTaP,Tdap,Td Vaccine (6 - Td or Tdap)04/25/2034 04/25/2024, 06/19/2013, 06/19/2013, Additional history existsPneumococcal Vaccine: 50+Umhclxgdg40/27/2017, 06/01/2017, 06/01/2017, Additional history existsShingrix JereeezSyqlvmtfw77/04/2019, 06/11/2018, 06/27/2012RSV Vaccine Bcbtspngw54/11/2024Influenza QhicllgGvunuznox57/16/2025, 03/26/2024, 05/01/2023, Additional history exists Procedures Procedure NamePriorityDate/TimeAssociated DiagnosisCommentsERYTHROPOIETIN/EPO Vuwparr6205/15/2025 11:10 AM EDT Malignant neoplasm of prostate (HCC) Anemia, unspecified type FOLATE RQGRZSbgmkzu75/30/2025 11:10 AM EDT Malignant neoplasm of prostate (HCC) Anemia, unspecified type VITAMIN B12 PBPENLclnddq82/30/2025 11:10 AM EDT Malignant neoplasm of prostate (HCC) Anemia, unspecified type FERRITIN NYCUqdtazg03/30/2025 11:10 AM EDT Malignant neoplasm of prostate (HCC) Anemia, unspecified type IRON + JKBVXsdawkn50/30/2025 11:10 AM EDT Malignant neoplasm of prostate (HCC) Anemia, unspecified type COMPREHENSIVE METABOLIC GMHNDZvsanbj63/30/2025 11:10 AM EDT Malignant neoplasm of prostate (HCC) Anemia, unspecified type CBC + HXPKPxhadnu90/30/2025 11:10 AM EDT Malignant neoplasm of prostate (HCC) Anemia, unspecified type PSA/PROSTSPECAG TDIFSluahhm62/30/2025 11:10 AM EDT Malignant neoplasm of prostate (HCC) Anemia, unspecified type from Last 3 Months Results * VITAMIN B12 (05/15/2025 11:10 AM EDT)ComponentValueRef RangeTest Method Analysis TimePerformed AtPathologist SignatureVitamin [id number] - 1,245 pg/mL 05/15/2025 7:43 PM [facility] LABSpecimen (Source)Anatomical Location / LateralityCollection Method / VolumeCollection TimeReceived Time BloodBLOOD SPECIMEN / UnknownVenipuncture / Kcxtijk8405/15/2025 11:10 AM EDT 05/15/2025 11:11 AM EDT Narrative Authorizing ProviderResult TypeResult StatusVivenathan Galdamez MDLABORATORYFinal ResultPerforming OrganizationAddressCity/State/ZIP CodePhone Number [facility] [address] [place] [address] * PROSTATE-SPECIFIC ANTIGEN DIAGNOSTIC (05/15/2025 11:10 AM EDT)ComponentValue Ref RangeTest MethodAnalysis TimePerformed AtPathologist SignaturePSA0.39<2.60 ng/mL05/15/2025 7:29 PM EDTCMERCER COUNTY COMMUNITY [facility] MAIN LABComment:Total PSA test methodology used is the Electrochemiluminescence Immunoassay by [employer]. Total PSA values by differing methodologies cannot be interchanged.Specimen (Source)Anatomical Location / LateralityCollection Method / VolumeCollection TimeReceived TimeBloodBLOOD SPECIMEN / Unknown Venipuncture / Fccvjcs3805/15/2025 11:10 AM EDT1 11:11 AM EDT Narrative Authorizing ProviderResult TypeResult StatusVivenathan Galdamez VALABORATORYFinal ResultPerforming OrganizationAddressCity/State/ZIP CodePhone Number [facility] [address] [place] [address], * (ABNORMAL) IRON AND TIBC (05/15/2025 11:10 AM EDT)ComponentValueRef RangeTest MethodAnalysis TimePerformed AtPathologist KdctdbaroDhtj5276 - 186 ug/dL 05/15/2025 7:26 PM EDTCMERCER COUNTY COMM[facility] MAIN QNIAKPZ669(H)232 - 386 ug/dL 05/15/2025 7:26 PM EDTCMERCER COUNTY COMM[facility] MAIN LABTransferrin Rydkpkjvyr69.815.0 - 57.0 %05/15/2025 7:26 PM EDTCMERCER COUNTY COMM[facility] MAIN LABSpecimen (Source) Anatomical Location / LateralityCollection Method / VolumeCollection Time Received TimeBloodBLOOD SPECIMEN / UnknownVenipuncture / Ccgkgov4605/15/2025 11:10 AM EDT1 11:11 AM EDT Narrative Authorizing ProviderResult TypeResult StatusVivenathan Sapphiremiguel VALABORATORYFinal ResultPerforming OrganizationAddressty/State/ZIP CodePhone Number [facility] [address] [place] [address], * FOLATE, SERUM (05/15/2025 11:10 AM EDT)ComponentValueRef RangeTest Method Analysis TimePerformed AtPathologist SignatureFolate>20.0>4.7 ng/mL05/15/2025 7:43 PM EDMERCY [facility] MAIN LABComment: A result of > 20 ng/mL is not necessarily indicative of a pathologic or treatable condition: it reflects a limitation of the test methodology. Assay reference range: 4.8 to 24.2 ng/mL. Suitable for detection of folate deficiency. Reference: Folate III (Folate III) [package insert V 1.0 [place]ian]. [employer], [place], [place]: May 2015. Specimen (Source)Anatomical Location / LateralityCollection Method / Volume Collection TimeReceived TimeBloodBLOOD SPECIMEN / UnknownVenipuncture / Unknown 05/15/2025 11:10 AM EDT1 11:11 AM EDT Narrative Authorizing ProviderResult TypeResult StatusVivenathan Galdamez MDLABORATORYFinal ResultPerforming OrganizationAddressCity/State/ZIP CodePhone Number [facility] [address] [place] [address], * FERRITIN (05/15/2025 11:10 AM EDT)ComponentValueRef RangeTest MethodAnalysis TimePerformed AtPathologist LgghdlqynYurttidd89.930.3 - 565.7 ng/mL05/15/2025 7:43 PM EDTCCLEVELAND CLINIC [facility]ILL[facility] LABSpecimen (Source)Anatomical Location / LateralityCollection Method / VolumeCollection TimeReceived TimeBloodBLOOD SPECIMEN / UnknownVenipuncture / Uisoidk8505/15/2025 11:10 AM EDT1 11:11 AM EDT Narrative Authorizing ProviderResult TypeResult StatusVivenathan Galdamez MDLABORATORYFinal ResultPerforming OrganizationAddressty/State/ZIP CodePhone Number [facility] [address] [place] [address], * ERYTHROPOIETIN/EPO (05/15/2025 11:10 AM EDT)ComponentValueRef RangeTest Method Analysis TimePerformed AtPathologist AjyguifxfGworzjlklfpjvu45.52.6 - 18.5 mIU/mL05/16/2025 9:41 AM EDTCCLEVELAND CLINIC HILLCRE[facility] LABSpecimen (Source) Anatomical Location / LateralityCollection Method / VolumeCollection Time Received TimeBloodBLOOD SPECIMEN / UnknownVenipuncture / Nnfvahb7805/15/2025 11:10 AM EDT1 11:[address] [facility] - 05/16/2025 9:41 AM EDT Test analyzed by the Esperanza DxI method. Authorizing ProviderResult TypeResult StatusVivenathan Galdamez MDLABORATORYFinal ResultPerforming OrganizationAddHahnemann University Hospitalty/State/ZIP CodePhone Number [facility] [address] [place] [address], * (ABNORMAL) COMPREHENSIVE METABOLIC PANEL (05/15/2025 11:10 AM EDT)Component ValueRef RangeTest MethodAnalysis TimePerformed AtPathologist Signature Protein, Total6.56.3 - 8.0 g/dL05/15/2025 11:49 AM EDTNORTREHABILITATION [facility] LABAlbumin4.23.9 - 4.9 g/dL05/15/2025 11:49 AM EDTNORTREHABILITATION [facility] LABCalcium, Total10.08.5 - 10.2 mg/dL05/15/2025 11:49 AM EDTNORTREHABILITATION [facility] LABBilirubin, Total0.80.2 - 1.3 mg/dL 05/15/2025 11:49 AM EDTMON [facility] LABAlkaline Fpcxchacfdb1462 - 113 U/L1 11:49 AM [facility]TM[facility] OEGQAM1776 - 40 U/L1 11:49 AM EDTNORTREHABIL[facility]ATION [facility] TWDSXJ2863 - 54 U/L1 11:49 AM [facility] VUYVtnvlxz235(H)74 - 99 mg/dL05/15/2025 11:49 AM [facility] LABComment: The [place] Diabetes Association (ADA) provides guidance for cutoff [...] Standards of Medical Care in Diabetes 2016, [place] Diabetes Association. Diabetes Care. 2016.39(Suppl 1). MVK647 - 24 mg/dL05/15/2025 11:49 AM [facility]FA[facility] LAB Creatinine0.730.73 - 1.22 mg/dL05/15/2025 11:49 AM [facility]FA[facility] BKQBcklaf286772 - 144 mmol/L1 11:49 AM [facility]FA[facility] LABPotassium4.73.7 - 5.1 mmol/L1 11:49 AM [facility]TM[facility] PEAXdgsdpno02105 - 107 mmol/L1 11:49 AM EDT [facility] IIEXF86981 - 30 mmol/L1 11:49 AM EDT [facility] LABAnion Haa308 - 15 mmol/L1 11:49 AM [facility] LABEstimated Glomerular Filtration Rate93 >=60 mL/min/1.73m 05/15/2025 11:49 AM [facility] LABComment:Estimated Glomerular Filtration Rate (eGFR) is calculated [...] VolumeCollection TimeReceived TimeBloodBLOOD SPECIMEN / UnknownVenipuncture / Qpmxsdp8405/15/2025 11:10 AM EDT1 11:11 AM EDT Narrative Authorizing ProviderResult TypeResult StatusSaul Galdamez MDLABORATORYFinal ResultPerforming OrganizationAddressCity/State/ZIP CodePhone Number [facility] [address] [place] [address] * (ABNORMAL) COMPLETE BLOOD COUNT AND DIFFERENTIAL (05/15/2025 11:10 AM EDT) ComponentValueRef RangeTest MethodAnalysis TimePerformed AtPathologist SignatureWBC6.943.70 - 11.00 k/uL05/15/2025 11:27 AM EDTNORTHCMARLETTE REGION[facility] LABRBC3.64(L)4.20 - 6.00 m/uL05/15/2025 11:27 AM EDTNORTRE[facility] FAWSyhqkjybpe59.7(L)13.0 - 17.0 g/dL05/15/2025 11:27 AM EDTNORTRE[facility] GVFLtumbqqtpr39.8(L)39.0 - 51.0 % 05/15/2025 11:27 AM EDTNORTRE[facility] CZMEYI11.680.0 - 100.0 fL05/15/2025 11:27 AM EDTNORTRE[facility] AVVCZU67.1 26.0 - 34.0 pg05/15/2025 11:27 AM EDFA[facility] LABMCHC 33.630.5 - 36.0 g/dL05/15/2025 11:27 AM EDTNOBO[facility] LABRDW-CV12.611.5 - 15.0 %05/15/2025 11:27 AM EDFA[facility] LABPlatelet Dgwfj486263 - 400 k/uL05/15/2025 11:27 AM EDTNOBO[facility] ZIPKRD92.49.0 - 12.7 fL05/15/2025 11:27 AM EDT [facility] LABNeutrophils %55.9%05/15/2025 11:27 AM EDT [facility] LABAbs Neut3.881.45 - 7.50 k/uL05/15/2025 11:27 AM EDTNOBO[facility] LABLymphocytes %29.0%05/15/2025 11:27 AM [facility]FA[facility] LABAbs Lymph2.011.00 - 4.00 k/uL 05/15/2025 11:27 AM [facility]FA[facility] LABMonocytes %8.6% 05/15/2025 11:27 AM EDFA[facility] LABAbs Mono0.60<0.87 k/uL05/15/2025 11:27 AM EDFA[facility] LABEosinophils % 5.2%05/15/2025 11:27 AM EDFA[facility] LABAbs Eosin0.36 <0.46 k/uL05/15/2025 11:27 AM [facility]TM[facility] LAB Basophils %0.4%05/15/2025 11:27 AM EDFA[facility] LABAbs Baso0.03<0.11 k/uL05/15/2025 11:27 AM [facility] LAB Immature Granulocytes %0.9%05/15/2025 11:27 AM EDFA[facility] LABAbs Immature Gran0.06<0.10 k/uL05/15/2025 11:27 AM EDFA[facility] LABNRBC0.0/100 WBC05/15/2025 11:27 AM [facility] LABAbsolute nRBC<0.01<0.01 k/uL05/15/2025 11:27 AM EDT [facility] LABDiff CdlrEgom41/30/2025 11:27 AM EDT [facility] LABSpecimen (Source)Anatomical Location / LateralityCollection Method / VolumeCollection TimeReceived TimeBloodBLOOD SPECIMEN / UnknownVenipuncture / Rbaxtij7005/15/2025 11:10 AM EDT1 11:11 AM EDT Narrative Authorizing ProviderResult TypeResult StatusSaul Galdamez MDLABORATORYFinal ResultPerforming OrganizationAddressCity/State/ZIP CodePhone Number [facility] [address] [place] [address] from Last 3 Months Insurance Care Teams Team MemberRelationshipSpecialtyStart DateEnd Jamar Jones DO PCP - GeneralInternal Medicine08/04/14 Galina Wall APRN.INFORMATION COORDINATOR [address] [place] [address] [place] [address] Nurse PractitionerHematology/Oncology11/02/21 Clementine Aguilar, ANITHA [address] [facility] [place] [address] Specialty Care CoordinatorHematology/Oncology11/02/21 Saul Galdamez MD [address] [place] [address] PhysicianHematology/Oncology01/21/25
--- OUTSIDE RECORDS SUMMARY | 2025-06-19 09:31 | XMS_ITS ---
Author Organization [facility] Address [address] [place], [place] [address] Care Team Providers Care Retail Manager Name Role Phone Jamar Jones DO Primary Care Provider Galina Wall VENETIAN BLIND MAKER.BUGGY OPERATOR Unavailable [phone] Clementine Aguilar RN Unavailable [phone] Saul Galdamez MD Unavailable [phone] Active Problems ProblemNoted DateDiagnosed DateMalignant neoplasm of dzavwwax41/21/2015 Current Treatment and Therapy Plans AMB BONE [...]
--- OUTSIDE RECORDS SUMMARY | 2025-06-19 09:31 | XMS_ITS | Patient Health Record ---
Author Organization [facility] Address [address] [place] [address] Care Team Providers Care Mat Cleaning Machine Operator Name Role Phone LISSA FALL DO Primary Care Provider Unavaila Cristhian Santos Unavailable [phone] PHILIP TALAVERA CNP Unavailable Unavailable Allergies Allergen [...] in the past year?Monthly or less (1 point)Yspdby0SndgjspsmpxqrjWecipyra Tobacco Control (Standard) Question Answer Notes Tobacco use: Nonsmoker Problems Problem Type SNOMED Code ICD Code Onset Dates Problem Status W/U Status Risk Notes Problem Carpal tunnel syndrome (97562823) Right c arpal tunnel syndrome (G56.01) ActiveconfirmedProblemCarpal tunnel syndrome (08655592)Left carpal tunnel syndrome (G56.02)ActiveconfirmedProblemParesthesia of both hands (178330205) Paresthesia of both hands (R20.2)ActiveconfirmedProblemBilateral carpal tunnel syndrome (87576802974970464)Bilateral carpal tunnel syndrome (G56.03)Active confirmedProblemArthritis of right hand (301207591099882)Arthritis of right hand (M19.041)Activeconfirmed Plan Of Treatment Pending Test Test Name Order Date EMG/NCS Upper Extremities, Bilateral CBC with diff, BMP, EKG 03/11/2024 Hemoglobin A1C 03/11/2024 Chem 8, Venous 03/11/2024 SURGERY SCHEDULING 03/11/2024 H A1C 01/29/2024 SCC- HAND 3 VIEW RIGHT [address]201 01/29/2024 Insurance Providers Payer Name Payer Address Payer Phone Subscriber Number Group Number Insured Name Patient Relationship to Insured Coverage Start Date Coverage End Date [place] [address] [id number] Baljinder ONEIL - patient is the insuredMedicare MMOH AdvantagePO [address] [place], [place] [id number], THOMASSelf - patient is the insured Medical (General) History Medical History History 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
--- OUTSIDE RECORDS SUMMARY | 2025-06-19 09:31 | XMS_ITS | Encounter Summary ---
Author Organization [facility] Address [address] [place], [place] [address] Care Team Providers Care Gauge Machine Operator Name Role Phone Jamar Jones DO Primary Care Provider [phone] Galina Wall APRN.INSURANCE REPRESENTATIVE Unavailable [phone] Clementine Aguilar RN Unavailable [phone] Saul Galdamez MD Unavailable [phone] Source Comments In the event this information is protected by the Federal Confidentiality of Alcohol and Drug AbusePatient Records regulations: The Federal rules restrict any use of the information to criminally investigate or prosecute any alcohol or drug abuse patient.[facility] Reason for Visit * ReasonOnset DateCommentsRefill Auurzzn1806/09/2025 Encounter Details DateTypeDepartmentCare Team (Latest Contact Info)Xdafcbfavrm07/24/2025Refill Hematology/Oncology [address] [place] [address] [place] [address] Saul Galdamez MD [address] [place] [address] Refill Request Social History Tobacco UseTypesPacks/DayYears UsedDateSmoking Tobacco: NeverPassive Smoke Exposure: NeverSmokeless Tobacco: NeverAlcohol UseStandard Drinks/WeekComments Yes0 (1 standard drink = 0.6 oz pure alcohol)1 day/wkPHQ-2AnswerDate Recorded PHQ-2 uhhmq318/04/2025Area Deprivation IndexAnswerDate RecordedNational Score (1-100), lower number is lower fqsg6858State Score (1-10), lower number is lower wyvx3733Data from: https://www.neighborhoodatlas.[facility].edu/. Last address used for wjwwxfqukfu[address]/02/2023Sex and Gender InformationValueDate Recorded Sex Assigned at ZozubSqla99/29/2022 11:48 AM EDTLegal MnoAdlg1408/04/2014 8:03 AM ESTGender CbmgfdgtGhvw31/29/2022 11:48 AM EDTSexual OrientationStraight 02/11/2022 11:48 AM EDTdocumented as of this encounter Functional Status * Are you deaf or do you have serious difficulty hearing?AnswerDate of SnfrciqkdvNzdjlyEl22/03/2015 10:35 AM Santiago Palacios LPN * Are you blind or do you have serious difficulty seeing, even when wearing glasses?AnswerDate of QfybuxodfhPjyjnwUnd22/03/2015 10:35 AM Santiago Palacios LPN * Do you have serious difficulty walking or climbing stairs?AnswerDate of SiaivrsxybErlgeuWw92/03/2015 10:35 AM Santiago Palacios LPN * Do you have difficulty dressing or bathing?AnswerDate of AssessmentAuthorNo 08/19/2014 10:35 AM Santiago Palacios LPN * Because of a physical, mental, or emotional condition, do you have difficulty doing errands alone such as visiting a doctor's office or shopping?AnswerDate of IhebknwdteNptmxxAs29/03/2015 10:35 AM Santiago Palacios LPN documented as of this encounter Mental Status * Because of a physical, mental, or emotional condition, do you have serious difficulty concentrating, remembering, or making decisions?AnswerEntry Date XxowtcKk99/03/2015 10:35 AM Santiago Palacios LPN documented in this encounter Miscellaneous Notes * Telephone Encounter - Galina Wall APRN.ALEXA - 06/09/2025 4:00 PM EST Just filled 1 week ago. Refused. Galina Wall APRN.INSURANCE REPRESENTATIVE documented in this encounter Plan of Treatment DateTypeDepartmentCare Team (Latest Contact Info)Mijdqujcozs28/22/2026 11:30 AM ESTOffice Visit [facility] [address] [place] [address] [place] [address] 3 month follow up with xgeva inj08/14/2025 11:00 AM ESTVisit (SP) Office Hematology/Oncology [address] [place] [address] [place] [address] Chary Hodge APRN.[address] [address] 3 month follow up with xgeva inj08/14/2025 11:30 AM [facility] [address] [place] [address] [place] [address] 3 month follow up with xgeva injdocumented as of this encounter Visit Diagnoses Diagnosis Malignant neoplasm of prostate (HCC) Malignant neoplasm of prostate documented in this encounter Care Teams Team MemberRelationshipSpecialtyStart DateEnd Date Jamar Jones DO PCP - GeneralInternal Medicine08/04/14 Galina Wall APRN.CNP [address] [facility] [place] [address] Nurse PractitionerHematology/Oncology11/02/21 Clementine Aguilar, ANITHA [address] [place] [address] Specialty Care CoordinatorHematology/Oncology11/02/21 Saul Galdamez MD [address] [place] [address] [place] [address] PhysicianHematology/Oncology01/21/25documented as of this encounter
--- NOTE | 2025-06-19 09:32 | MR_ITS ---
[facility] [id number] Patient Name: PABLO ONEIL MRN: [id number] date: 1945 Sex: M Assigned Patient Location: MRI Current Patient Location: MRI Accession/Order Number: [id number] Exam Date: 06/19/2025 09:49 Report Date: 06/19/2025 11:38 At the request of: LISSA FALL DO Procedure: MR abdomen wo con MRI OF THE ABDOMEN WITHOUT CONTRAST: CLINICAL HISTORY: Diarrhea for one year. COMPARISON: Prior MRI 06/05/2024 TECHNIQUE: Multisequence, multiplanar imaging of the abdomen was obtained without the use of IV contrast. FINDINGS: Swallowing evaluation suboptimal due to lack of IV contrast. Hepatic steatosis. No focal T2 abnormality is seen within the liver to suggest underlying mass. No intrahepatic ductal dilatation. Gallbladder appears unremarkable. No CBD dilatation. Spleen appears unremarkable. Adrenal glands appear unremarkable. Kidneys appear unremarkable. Aorta is normal in caliber. No bulky lymphadenopathy or ascites. No pleural effusion. 3 cm stable cystic lesion involving the pancreatic body. Additional smaller cystic lesions are seen throughout the pancreas. MR/MR abdomen wo con IMPRESSION: CYSTIC LESION INVOLVING THE PANCREAS LARGEST MEASURING 3 CM GROSSLY UNCHANGED IN SIZE AND CONFIGURATION COMPARED TO THE PRIOR MRI STUDY FROM 2023. REPEAT MRI IN 6 MONTHS IS SUGGESTED. Impression dictated by: Miguel A Jean-Baptiste Jr., D.O. 06/19/2025 11:38 AM Dictation Location: [place] [address] Electronically authenticated by: [id number] Y Date: 06/19/2025 11:38
--- OUTSIDE RECORDS SUMMARY | 2025-06-19 09:34 | XMS_ITS | CCD ---
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 Name Role Phone Jamar Fall DO Primary Care Provider Dheeraj JAMES, Marco A R Unavailable [facility] PASSENGER AGENT.ALEXA, Christo Unavailable Lauren RN, Clementine Unavailable [phone] JAMAR FALL Primary Care Physician [phone] Jamar Fall DO Primary Care Provider Marco A Esqueda MD R Unavailable [phone] [facility] PASSENGER AGENT.ALEXA, Christo Unavailable Lauren WELSH, Clementine Unavailable [phone] Jamar Fall DO Primary Care Provider Dheeraj JAMES, Marco A R Unavailable [facility] PASSENGER AGENT.MANAGER CLIENT, Christo Unavailable Lauren RN, Clementine Unavailable Jamar [...] Consulting Unavaila ble Lauren RN, Clementine Unavailable [phone] Jamar Fall MD Primary Care Provider Juan David SEGUNDO, Jamar E Primary Care Provider LONG BOO Attending Unavailable MARCO A ESQUEDA Referring Unavailable EMELINA LOUIS Attending Unavailable JUAN DAVID JAMAR E Referring Unavailable PABLO CHRISTINA Attending Unavailable LONG BOO Attending Unavailable ALEXIA FRANCO Attending Unavailable Juan David SEGUNDO, Jamar Jesisca Primary Care Provider Sharon JAMES, Nicole Lang Attending Unavailable Sharon JAMES, Andrius Precious Attending Unavailable Sharon JAMES, Andrius Vjob Attending Unavailable SCRUGGS, Anthony R Attending Unavailable SCRUGGS, Anthony R Attending Unavailable SCRUGGS, Anthony R Attending Unavailable SCRUGGS, Anthony R Attending Unavailable SCRUGGS, Anthony R Attending Unavailable ANIRUDH QUIROZ Attending Unavailable Jamar Fall DO Primary Care Provider aMrco A Esqueda MD Attending Provider Unavailable Richie OUTREACH LIAISON-CAnirudh Attending Provider [phone] Provider, Outside Attending Provider Unavailable Jamar Fall [...] Attending Unavailable ABHYANKAR, SAUL Referring Unavailable BALL, JAAMR E Primary Care Unavailable ABHYANKAR, SAUL Referring [...] of OnsetReaction(s) Facility (18 sources)Penicillins; Translations: [PENICILLINS]Drug Oxezcts24-36-9885 [facility] (20 sources)Penicillin G; Translations: [penicillin G benzathine]Drug Allergy 88-50-6260Tsngivx (qualifier value)[facility] (20 sources)PenicillinsDrug Rzpaeig67-70-3980OjpvkgnHbdicjzsv [facility] (20 sources)Simvastatin; Translations: [SIMVASTATIN]Drug Kjzvznr80-69-2807 [facility] (1 source)PenicillinsDrug allergy (disorder)81-92-1692[facility] (1 source)PenicillinDrug AllergyUnksunrise hospital & medical centerAtritech Other (1 source)Allergies ReconciledPropensity to adverse reactionsIndiana University Health University HospitalAtritech Other (1 source)patient allergy list reviewed by nurse or physiciaPropensity to adverse -15-2513Nwieyyo:TelljaTiller Other (6 sources)SimvastatinPropensity to adverse ouvquctou22-04-9476[facility] (1 source)PenicillinsDrug Sbhftwt18-12-7171OjuwctoYcrfubmhj Clinic Medications Current Medications MedicationDrug Class(es)DatesSig (Normalized)Sig (Original)Aspir-81 81 MG (20 sources)take 1 tablet by mouth once dailyAspir-81 81 MG 1 tablet Orally Once a day Activeaspirin 81 mg delayed release oral tablet (20 sources)Platelet Aggregation Inhibitor, Nonsteroidal Anti-inflammatory Drug Start: 71-83-9501gkyw 1 tablet by mouth once dailyAspirin 81 mg tablet,delayed release (DR/EC) Active 81 MG PO Daily September 08, 2023 1:00am Complies with drug therapyStart: 70-62-0494plfz 1 mg by mouth once dailyaspirin 81 mg oral tablet mg tab(s), Oral, Daily, Refills(s) 0 Start Date: 02/04/19 Status: Ordered Repeat number: 1Comment on above:Take 81 mg by mouth once daily.atorvastatin 40 mg oral tablet (20 sources)HMG-CoA Reductase InhibitorStart: 36-97-8264bfch 1 tablet by mouth once daily in the eveningAtorvastatin 40 mg tablet Active 0 .ROUTE .COMPLEX 90 September 01, 2024 9:43am TAKE 1 TABLET BY MOUTH ONCE EVERY EVENING Complies with drug therapyStart: 09-06-2023 End: 79-27-5703kujz 1 tablet by mouth once daily in the eveningAtorvastatin 40 mg tablet Discontinued 0 .ROUTE .COMPLEX 90 September 06, 2023 9:32am September 08, 2023 3:51pm TAKE 1 TABLET BY MOUTH ONCE EVERY EVENINGStart: 04-17-2023 End: 42-25-7318yrnh 1 tablet by mouth once dailyAtorvastatin 40 mg tablet Discontinued 40 MG PO Daily September 08, 2023 3:49pm September 01, 2024 9:43amStart: 98-24-4484kpcu 1 tablet by mouth once dailyatorvastatin 20 mg Tab 20 mg = 1 tab(s), Oral, Daily, Refills(s) 0 Start Date: 02/04/19 Status: Ordered Comment on above:Take 20 mg by mouth once daily.Take 40 mg by mouth once daily. calcium citrate 950 mg / cholecalciferol 250 unt oral tablet (20 sources)Vitamin DStart: 31-81-9827synu 2 tablets by mouth once dailyCalcium Citrate-Vitamin [...] tablet (20 sources)Androgen Receptor InhibitorStart: 04-01-2024 End: 77-75-7106bxdf 4 tablets by mouth once dailyenzalutamide (XTANDI) 40 mg tablet Take 4 tablets (160 mg) by mouth once daily. 120 tablet 11 05/08/2024 ActiveStart: 05-08-2023 End: 04-53-3311htfz 2 tablets by mouth once dailyenzalutamide (XTANDI) 80 mg tablet TAKE 2 TABLETS (160 MG) BY MOUTH ONCE DAILY. 60 tablet 11 04/01/2024 08/08/2024 Discontinued (Discontinued by Patient)Start: 50-45-4939bjep 1 mg by mouth once dailyXtandi 80 mg oral tablet mg tab(s), Oral, Daily, Refills(s) 0 Start Date: 05/13/22 Status: Ordered Repeat number: 1Start: 10-28-2021 End: 53-66-5927tmma 2 tablets by mouth once dailyenzalutamide (XTANDI) 80 mg tablet Take 2 tablets (160 mg) by mouth once daily. 60 tablet 3 10/28/2021 04/27/2023 DiscontinuedComment on above:Take 2 tablets (160 mg) by mouth once daily.fluocinonide 0.5 mg/ml topical cream (3 sources)CorticosteroidStart: 02-26-2024 End: 38-65-5692rifazcewmmmz (Lidex) 0.05 % cream Indications: Psoriasis vulgaris Apply topically 2 (two) times a day 60 g 11 02/26/2024 02/25/2025 Active fluorouracil 50 mg/ml topical cream (5 sources)Nucleoside Metabolic InhibitorStart: 51-87-9043nyurrbivjjxl (Efudex) 5 % cream Indications: Actinic keratosis Apply to directed areas on the face, ears and back of hands twice a day x 14 days. Dispense 30 day supply but only use for 14 days. 40 08/28/2023 Activeglimepiride 1 mg oral tablet (20 sources)SulfonylureaStart: 08-95-8575yofa 0.5 tablet by mouth once daily at breakfastGlimepiride 1 mg tablet Active 0 .ROUTE .COMPLEX August 02, 2024 3:03pm TAKE 1/2 TABLET BY MOUTH DAILY 30 MINUTES PRIOR TO BREAKFAST Complies with drug therapyStart: 57-95-6806ehuv 0.5 mg by mouth once dailyGlimepiride Active 0.5 MG PO Daily September 08, 2023 1:00amStart: 10-15-2021 End: 93-18-9715pobg 0.5 mg by mouth once dailyGlimepiride 1 mg tablet Discontinued 0.5 MG PO Daily September 08, 2023 1:00am August 02, 2024 3 :03pmStart: 35-43-0267eqno 0.5 mg by mouth once dailyGLIMEPIRIDE ORAL Take 0.5 mg by mouth once daily. 10/15/2021 ActiveStart: 37-35-0769xtok 0.5 mg by mouth once dailyGLIMEPIRIDE ORAL Take 0.5 mg by mouth once daily. 0 10/15/2021 Active Start: 66-06-3261pfwdtfgxhlx Oral, Daily, Refills(s) 0 Start Date: 05/14/21 Status: Ordered Repeat number: 1Start: 62-02-7885gsoasviqgbz Oral, Daily, Refills(s) 0 Start Date: 05/14/21 Status: OrderedComment on above:TAKE 1/2 TABLET BY MOUTH DAILY 30 MINUTES PRIOR TO BREAKFASTTake 0.5 mg by mouth once daily. hydroCHLOROthiazide 12.5 mg / lisinopril 20 mg oral tablet (20 sources)Thiazide Diuretic, Angiotensin Converting Enzyme InhibitorStart: 10-12-2023 End: 61-22-0182verb 1 tablet by mouth once dailyLisinopril-Hydrochlorothiazide 20-12.5 mg tablet Active 0 .ROUTE .COMPLEX 90 October 07, 2024 6:50am TAKE 1 TABLET BY MOUTH EVERY DAY Complies with drug therapyStart: 02-04-2019 End: 40-43-0018biul 1 tablet by mouth once dailyLisinopril-Hydrochlorothiazide 20-12.5 [...] mg/actuat metered dose nasal spray (19 sources)AnticholinergicStart: 52-54-1703pbik 1 spray(s) nasal route three times dailyIpratropium Hankinson 42 mcg (0.06 %) spray,non-aerosol Active 2 SPRAY INTRANASAL Three times daily December 27, 2024 12:00am administer into each nostril Complies with drug therapyStart: 61-68-3126zmueevconry Nasal 0.06% [place] Refill(s) 0 Start Date: 10/20/23 Status: Ordered Repeat number: 1Start: 06-05-2023 End: 57-74-8471utvm 2 spray(s) nasal route in the morning, then take 2 spray(s) nasal route in the evening, then take 2 spray(s) nasal route at bedtime ipratropium (Atrovent) 0.06 % nasal spray Indications: Vasomotor rhinitis Administer 2 sprays into each nostril in the morning and 2 sprays in the evening and 2 sprays before bedtime. 45 mL 3 06/05/2023 ActiveStart: 06-05-2023 End: 98-37-6550aymqrguhsoc bromide (ATROVENT) 42 mcg (0.06 %) nasal spray 2 Sprays. 06/05/2023 06/04/2024 ActiveComment on above:2 Sprays.metFORMIN hydrochloride 500 mg oral tablet (20 sources)BiguanideStart: 84-63-4488zedo 2 tablets by mouth once daily at mealtimeMetformin 500 mg tablet Active 0 .ROUTE .COMPLEX 180 July 31, 2024 8:39am TAKE 2 TABLETS BY MOUTH DAILY WITH FOOD 90 Complies with drug therapy Start: 09-08-2023 End: 71-64-0331zvnk 2 tablets by mouth once dailyMetformin 500 mg tablet Discontinued 1000 MG PO Daily September 08, 2023 1:00am July 31, 2024 8:39amStart: 09-80-6570suio 1000 mg by mouth once dailyMetformin Active 1000 MG PO Daily September 08, 2023 1:00amStart: 13-25-9627jxzk 1 tablet by mouth once dailymetFORMIN (GLUCOPHAGE) 1,000 mg tablet Take 1,000 mg by mouth once daily. 08/17/2021 ActiveStart: 32-95-1572nnms 2 tablets by mouth once daily at mealtime metFORMIN (GLUCOPHAGE) 500 mg tablet TAKE 2 TABLETS BY MOUTH ONCE A DAY WITH FOOD 0 08/17/2021 ActiveStart: 46-58-6760nbgo 1 mg by mouth twice dailymetformin 1000 [...] oral tablet (20 sources)beta-Adrenergic BlockerStart: 12-04-2023 End: 85-56-5676ocrt 1 tablet by mouth twice dailyMetoprolol Tartrate 25 mg tablet Active 0 .ROUTE .COMPLEX 180 October 08, 2024 12:01pm TAKE 1 TABLET BY MOUTH TWICE A DAY Complies with drug therapyStart: 90-67-0649thlx 1 tablet by mouth twice dailyMetoprolol Tartrate Active 0 .ROUTE .COMPLEX 180 December 04, 2023 1:04pm TAKE 1 TABLET BY MOUTH TWICEA DAYStart: 09-08-2023 End: 80-73-1263uxzb 1 tablet by mouth twice dailyMetoprolol Tartrate 25 mg tablet Discontinued 25 MG PO Twice daily September 08, 2023 1:00am December 04, 2023 1:04pmStart: 31-52-7838vywc 1 tablet by mouth every twenty-four hours metoprolol succinate ER (TOPROL XL) 25 mg 24 hr tablet Take by mouth. 02/04/2019 ActiveStart: 04-28-1725biba 1 tablet by mouth twice dailymetoprolol 25 mg ER Tab 25 mg = 1 tab(s), Oral, BID, Refills(s) 0 Start Date: 02/04/19 Status: Sherriee d Repeat number: 1take 1 tablet by mouth every twelve hoursmetoprolol tartrate (Lopressor) 25 MG tablet Take 25 mg by mouth every 12 (twelve) hours Active End: 23-05-0198owhz 1 tablet by mouth twice dailyMetoprolol Tartrate 25 MG TAKE 1 TABLET BY MOUTH TWICE A DAY ActiveComment on above:Take 25 mg by mouth.Take 25 mg by mouth twice daily. Take by mouth.Durxmhmtgarmf-Zogkufje-Olnetq (MULTIVITAMIN 50 PLUS) tab (20 sources)Vzadnmcyveheo-Mmlmcogu-Rmydte (MULTIVITAMIN 50 PLUS) tab Take 1 tablet by mouth once daily. KlvrnhUzmxltjeyzedf-Npkjzbya-Eacnhz (MULTIVITAMIN 50 PLUS) tab Take 1 tablet by mouth once daily. 0 ActiveComment on above:Take 1 tablet by mouth once daily.traMADol hydrochloride 50 mg oral tablet (2 sources)Opioid AgonistStart: 80-46-7208npaIQGtn HCl 50 MG 1 Orally every 8 hours as needed for 7 days Jul, ActiveVitamin D3 (6 sources)Start: 89-53-1855Sgqorml D3 Start Date: 06/22/20 Status: Ordered Repeat number: 1Start: 32-66-3600Ecysomt D3 Start Date: 06/22/20 Status: Ordered Completed/Discontinued [...] + VITAMIN D ORAL) (12 sources) End: 02-96-4396xpsi 1 tablet by mouth twice dailycalcium carbonate/vitamin [...] injection (3 sources)RANK Ligand InhibitorStart: 08-08-2024 End: 36-39-8658hribyk 1 dose by subcutaneous injection [id number] mg, SUBCUTANEOUS, ONCE, 1 dose, On [place] 08/08/24 at 1000, REFRIGERATEStart: 05-09-2024 End: 29-64-8687ojcjqs 1 dose by subcutaneous injection [id number] mg, SUBCUTANEOUS, ONCE, 1 dose, On [facility] 05/09/24 at 1000, REFRIGERATEStart: 02-02-2024 End: 80-13-4210ahgpjmube 120 mg injection (XGEVA)docusate sodium 100 mg oral capsule (2 sources)docusate sodium (COLACE) 100 mg capsule q 24 HR. 0 ActiveComment on above:q 24 HR.enteric contrast (will be provided with radiology test) (3 sources)Start: 10-28-2021 End: 20-32-9311ojsbqyw contrast (will be provided with radiology test) For CT CHESTABD/PEL W IVCON Routine order Administer, As Directed One Time Only, via Oral, Rectal, both Oral and Rectal, Enteric Tube, Stoma orIndwelling Catheter, Enteric Contrast as designated per enteric contrast guidelines 1 Each 0 022 10/29/2021 ExpiredStart: 10-28-2021 End: 64-18-1659qtnncne contrast (will be provided with radiology test) [...] with radiology test) (3 sources)Start: 10-28-2021 End: 98-23-6021pk contrast (will be provided with radiology test) [...] Each 0 10/28/2021 10/29/2021 ExpiredStart: 10-28-2021 End: 70-25-3789br contrast (will be provided with radiology test) [...] guidelines link.Lidocaine (14 sources)Antiarrhythmic, Amide Local AnestheticStart: 31-93-3861Qxlwvratq Feb, 20 mgoxyCODONE hydrochloride 5 mg oral tablet (2 sources)Opioid AgonistoxyCODONE IR (ROXICODONE) 5 mg immediate release tablet q 4 HR. 0 ActiveComment on above:q 4 HR.predniSONE 5 mg oral tablet (2 sources)Start: 35-33-2109dsdl 1 tablet by mouth once dailypredniSONE (DELTASONE) 5 mg tablet Take 5 mg by mouth once daily. 0 08/23/2021 Active Comment on above:Take 5 mg by mouth once daily.tamsulosin hydrochloride 0.4 mg oral capsule (2 sources)alpha-Adrenergic Blockertamsulosin (FLOMAX) 0.4 mg q 24 HR. 0 Active Comment on above:q 24 HR.triamcinolone acetonide 40 mg/ml injectable suspension (20 sources)CorticosteroidStart: 49-95-2362Azgeoxj-40 Feb, 40 mg Problems Active Problems Problem ClassificationProblemDateDocumented DateEpisodic/ChronicAbdominal pain (3 sources)Right upper quadrant pain; Translations: [Lower abdominal pain, unspecified]EpisodicCalculus of urinary tract (11 sources)History of calculus of kidney; Translations: [Personal history of urinary calculi]Onset: 15-48-1140CsvqhbqcCpqdau of prostate (20 sources)Malignant tumor of prostate; Translations: [Malignant neoplasm of prostate]Onset: 872043-83-9709RzefigiRibijra on above:S/p Radical 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 2017Dx: 2014, s/p radical prostatectomy, ADT, EBRT, chemotherapyDx: 2014, s/p radical prostatectomy,Recurrence 2017 ADT, EBRT, chemotherapy,Increasing PSA 2019 ADT,Bone mets ADT, Xtandi ancer of prostate (8 sources)History of malignant neoplasm of prostate; Translations: [Personal history of malignant neoplasm ofprostate]Onset: 573638-40-2425Gmyeofdz Complication of device; implant or graft (2 sources)Atherosclerosis of coronary artery bypass graft(s) without angina pectoris; Translations: [Atherosclerosis of coronary artery bypass graft(s) without angina pectoris]Onset: 27-36-2996NnfdyivVwzpbrhpiw disorders (18 sources)Left bundle branch block; Translations: [Other left bundle branch block]Onset: 96-21-7841JoszigdYmbdkltz atherosclerosis and other heart disease (20 sources)Coronary arteriosclerosis; Translations: [Atherosclerotic heart disease of [place] coronary artery without angina pectoris]Onset: 10-10-2014 36-57-1931KyhntduTycifvw on above:CABG 2014,Stress lexiscan: nondiagnostic - 03/2025Stress NM: no reversible defect, LVEF 55%, no TID - 03/2025Deficiency and other anemia (1 source)Anemia, unspecified; Translations: [Anemia, unspecified type]Onset: 66-24-3860ArgavtlpMsjidqet mellitus with complications (20 sources)Type 2 diabetes mellitus; Translations: [Type 2 diabetes mellitus with hyperglycemia]Onset: 73-91-1820KhhgdehWtdjxvai mellitus without complication (19 sources)Type 2 diabetes mellitus without complication; Translations: [Type 2 diabetes mellitus without complications]Onset: 50-68-8274HuuhicdUxqqbcwgy of lipid metabolism (20 sources)Hyperlipidemia; Translations: [Hypercholesterolemia]Onset: 847009-88-4686FcrgvxtVoykblvqg hypertension (20 sources)Hypertensive disorder; Translations: [Essential hypertension]Onset: 06-01-2023 Resolved: 301599-98-2786InftnnvQreehbixtohnc symptoms and ill-defined conditions (17 sources)Microscopic hematuria; Translations: [Nocturia]Onset: 04-14-2023 26-26-7172QpugzmqyHsgjn valve disorders (20 sources)Aortic stenosis, non-rheumatic ; Translations: [Nonrheumatic aortic (valve) stenosis]Onset: 90-87-6051VgrsezxWlhlrnr on above:Echo: ROGER 1.13, Velocity 324, 04/2022Echo: [...] and other lower urinary tract symptoms [LUTS]]Onset: 02-04-3198Naocyft Immunizations and screening for infectious disease (1 source)Vaccination given; Translations: [Encounter for immunization]Episodic Nausea and vomiting (2 sources)NauseaEpisodicNeoplasms of unspecified nature or uncertain behavior (2 sources)Neoplastic disease; Translations: [Neoplasm of unspecified behavior of bone, soft tissue, and skin]12-52-2402RckfetygBsqtzwvep or stenosis of precerebral arteries (1 source)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; Translations: [Occlusion and stenosis of carotid artery without mention of cerebral infarction]Onset: 26-32-4832RmhhikkRqhzzpxokrdwnc (20 sources)Osteoarthritis of joint of right shoulder region; Translations: [Primary osteoarthritis, right shoulder]ChronicOther and unspecified benign neoplasm (2 sources)Melanocytic nevus of trunk; Translations: [Melanocytic nevi of trunk] 86-72-8410ImfjwcvgPgkuv circulatory disease (2 sources)Cardiovascular symptoms; Translations: [Other specified symptoms and signs involving the circulatory and respiratory systems]Onset: 07-25-2018 EpisodicOther congenital anomalies (1 source)Other congenital malformations of iris; 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]ChronicOther ear and sense organ disorders (3 sources)Hearing loss; Translations: [Unspecified hearing loss, unspecified ear]Onset: 218444-23-2122RurrzanPywlv ear and sense organ disorders (6 sources)Sensorineural hearing loss, bilateral; Translations: [Sensorineural hearing loss, bilateral]Onset: 996959-56-9145NrhglcuKzogq ear and sense organ disorders (1 source)Impacted cerumen, right earEpisodicOther ear and sense organ disorders (1 source)Lesion of skin of right ear; Translations: [Disorder of right external ear, unspecified]46-40-2436MukrvxutGnuqk eye disorders (7 sources)Anisocoria; 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]Onset: ChronicOther gastrointestinal disorders (2 sources)Diarrhea; Translations: [Diarrhea, unspecified]76-44-7354Zxplovnx Other gastrointestinal disorders (1 source)Diarrhea, unspecified; Translations: [Diarrhea]32-10-8344RimcgdxuJhkow inflammatory condition of skin (2 sources)Psoriasis vulgaris; [...] [Personal history of other malignant neoplasm of skin]06-97-5732WaofmzjnXcgjc non- traumatic joint disorders (7 sources)Pain in right shoulder; Translations: [Right shoulder pain]Episodic Other nutritional; endocrine; and metabolic disorders (20 sources)Body mass index 30+ - obesity; Translations: [Obesity, unspecified] Onset: 18-96-0450IawjgnnLhxat nutritional; endocrine; and metabolic disorders (2 sources)Obesity, unspecifiedChronicOther nutritional; endocrine; and metabolic disorders (1 source)Simple obesity ; Translations: [Other obesity due to excess calories] Onset: 11-81-6651HpgffvwPpccg nutritional; endocrine; and metabolic disorders (8 sources)Obesity; Translations: [Obesity, unspecified]Onset: 06-01-2023 86-57-7426IfwdaymDddve nutritional; endocrine; and metabolic disorders (1 source)Obese class II; Translations: [Body mass index 35.0-35.9, adult]Onset: 43-71-7010LjfdhsoEhxok nutritional; endocrine; and metabolic disorders (1 source)Obese class I; Translations: [Body mass index 34.0-34.9, adult]Onset: 27-08-4451MydgpuwPlooi nutritional; endocrine; and metabolic disorders (14 sources)Obesity [...] following treatment for malignant neoplasm of prostate]Onset: 81-54-5731Uvnjvlyi Other skin disorders (4 sources)Actinic keratosis; Translations: [Actinic keratosis]08-28-2023 EpisodicOther skin disorders (4 sources)Mass of skin of left upper limb; Translations: [Localized swelling, mass and lump, left upper limb]48-56-1797XpfawrqpFmges skin disorders (4 sources)Mass of skin of right upper limb; Translations: [Localized swelling, mass and lump, right upper limb]40-17-9392QnoujbqxVxdiv skin disorders (1 source)Localized swelling, mass and lump, left upper limb; Translations: [Localized superficial swelling, mass, or lump]64-12-8806DakrylktEsbvz skin disorders (2 sources)Seborrheic keratosis; Translations: [Other seborrheic keratosis] 21-32-4683JbyiqpkyUxtgo skin disorders (2 sources)Lentiginosis; Translations: [Other melanin hyperpigmentation] 56-38-2714SvhimyfgOafar upper respiratory disease (1 source)Seasonal allergic rhinitis; Translations: [Other seasonal allergic rhinitis]Onset: 25-27-5708IlqhbriOjyvi upper respiratory disease (7 sources)Vasomotor rhinitis; Translations: [Vasomotor rhinitis]Onset: 894152-28-9031UznvaibNjzgc upper respiratory disease (1 source)Vasomotor rhinitisChronicOther upper respiratory disease (1 source)Other specified disorders of nose and nasal sinusesEpisodicOther upper respiratory disease (2 sources)Mass of body region; Translations: [Other specified disorders of nose and nasal sinuses]96-84-2747BlylqxoiMyemfbcout disorders (not diabetes) (6 sources)Other specified diseases of pancreas; Translations: [Cyst of pancreas]EpisodicComment on above:MRCP: no significant change in 2021, 2022, 4Residual codes; unclassified (20 sources)Obstructive sleep apnea syndrome; Translations: [Obstructive sleep apnea (adult) (pediatric)]Onset: 773733-24-2746YtbtyivUbuzkpsy codes; unclassified (7 sources)Obstructive sleep apnea (adult) (pediatric); Translations: [Obstructive sleep apnea (adult)(pediatric)]ChronicResidual codes; unclassified (6 sources)Sleep apnea; Translations: [Sleep apnea, unspecified]Onset: 524489-09-6172CmuaxkyHrzagbiom malignancies (8 sources)Secondary malignant neoplasm of bone; Translations: [Secondary malignant neoplasm of bone]ChronicSecondary malignancies (3 sources)Secondary malignant neoplasm of bone; Translations: [Secondary malignant neoplasm of bone (HCC)]Onset: 90-13-0781SxojxeoVeazdwyekdw; intervertebral disc disorders; other back problems (20 sources)Cervical spondylosis; Translations: [Other spondylosis with radiculopathy, cervical region]Onset: 48-16-7456WhjzopwYqswoqv and strains (7 sources)Strain of hamstring muscle; Translations: [Right hamstring muscle strain]EpisodicUnclassified (1 source)OPENED IN ERRORUnclassified (3 sources)Hearing loss; Translations: [Impaired hearing]Onset: 06-01-2023 06-01-2023 Past or Other Problems Problem ClassificationProblemDateDocumented DateEpisodic/ChronicAcute posthemorrhagic anemia (1 source)Acute posthemorrhagic anemia; Translations: [Acute posthemorrhagic anemia]Onset: 70-91-5995PpgocnzrJcohhfgj reactions (1 source)Idiopathic urticaria; Translations: [Idiopathic urticaria]Onset: 69-27-5692SlyhkseqGhst; stupor; and brain damage (1 source)Somnolence; Translations: [Somnolence]Onset: 44-73-9309Yzfrzuap Deficiency and other anemia (1 source)Anemia; Translations: [Anemia, unspecified]Onset: 36-66-1684Zbimtnij Diabetes mellitus without complication (1 source)Impaired fasting glycemia; Translations: [Impaired fasting glucose] Onset: 53-88-8689VssvoofxZkkieheknxfv injury (1 source)Concussion with no loss of consciousness; Translations: [Concussion without loss of consciousness, subsequent encounter]Onset: 91-15-4529Hxirlmyo Malaise and fatigue (1 source)Malaise and fatigue; Translations: [Other malaise and fatigue]Onset: 70-24-8537QrazrywoNgmvaewpfsj chest pain (1 source)Chest pain; Translations: [Chest pain, unspecified]Onset: 08-25-2014 EpisodicOther non-traumatic joint disorders (5 sources)Pain in left shoulder; Translations: [PAIN IN LEFT SHOULDER]Onset: 22-65-3533RbesbeecVzxyo nutritional; endocrine; and metabolic disorders (1 source)Morbid obesity; Translations: [Morbid (severe) obesity due to excess calories] Resolved: 64-61-1418JepdhaxZzodiqvq codes; unclassified (1 source)Requires influenza virus vaccination; Translations: [Need for prophylactic vaccination and inoculation, Influenza]Onset: 43-02-7671Ssgmtmpz Spondylosis; intervertebral disc disorders; other back problems (6 sources)Neck pain; Translations: [Cervicalgia]Onset: 587161-34-3600 Episodic Results Test NameValueInterpretationReference RangeFacilityCNOVSPon 38-72-1269YRXPVU Visit (SP) [facility] PABLO FELIX ([id number]) 1945 M Date Time Provider Department 05/22/25 11:00 AM CHARY SHERMAN During your visit today, we recorded the following information about you: Temperature Pulse Respiration Blood pressure 97.2 degrees 51/minute 16/minute 140/56 Weight Height 92.3 kg 1.676 m Chary Sherman APRN.CNP 05/22/2025 3:33 PM Signed NAME: Folk, [facility] NO.: [id number] DATE OF SERVICE: May 22, 2025 (Naveen) Some elements in this clinic note that are critical to medical decision making have been carefully reviewed and included from a prior clinic note dated: February 20, 2025 (Denice) Referring Provider: RADHA Additional Clinicians involved in Pablo Felix's care: Dr. Jamar Fall, Dr. Anthony Scruggs, Dr. 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 Stable on current medications. Continue per [...] with lactase enzyme supp (more content not included)...[facility] Auto Differential panel (Bld)on 12-43-2368Tkprrkhmf (Bld) [#/Vol] 0.03 10*3/uLNormal<0.11CUniversity [facility]als [facility] on above:Order Comment: Specimen Type: BLOOD SPECIMEN Ordering Facility: [facility] Address: [address] [place], [place] [address]Performed By: #### 2857-1 #### [facility] CLIA [id number] [address] [place] [address] [place] AMERICABasophils/100 WBC (Bld)0.4 %Normal [facility] on above:Order Comment: Specimen Type: BLOOD SPECIMEN Ordering Facility: [facility] Address: [address] [place], [place] [address]Performed By: #### 2857-1 #### [facility] CLIA [id number] [address] [place] [address] [place] AMERICADifferential cell count method Nom (Bld)AutoNormalCUniversity Hospitals TriPoint Medical Center on above:Order Comment: Specimen Type: BLOOD SPECIMEN Ordering Facility: [facility] Address: [address] [place], [place] [address]Performed By: #### 2857-1 #### [facility] CLIA [id number] [address] [place] [address] [place] AMERICAEosinophils (Bld) [#/Vol]0.36 10*3/uLNormal<0.46[facility] on above:Order Comment: Specimen Type: BLOOD SPECIMEN Ordering Facility: [facility] Address: [address] [place], [place] [address]Performed By: #### 2857-1 #### [facility] CLIA [id number] [address] [place] [address] [place] AMERICAEosinophils/100 WBC (Bld)5.2 %Normal [facility] on above:Order Comment: Specimen Type: BLOOD SPECIMEN Ordering Facility: [facility] Address: [address] [place], [place] [address]Performed By: #### 2857-1 #### [facility] CLIA [id number] [address] [place] [address] [place] AMERICAErythrocyte distribution width (RBC) [Ratio]12.6 %Vegpod03.5-15.0[facility] on above:Order Comment: Specimen Type: BLOOD SPECIMEN Ordering Facility: [facility] Address: [address] [place], [place] [address]Performed By: #### 2857-1 #### [facility] CLIA [id number] [address] [place] [address] [place] AMERICAHematocrit (Bld) [Volume fraction] 34.8 %Low39.0-51.0[facility] on above:Order Comment: Specimen Type: BLOOD SPECIMEN Ordering Facility: [facility] Address: [address] [place], [place] [address]Performed By: #### 2857-1 #### [facility] CLIA [id number] [address] [place] [address] [place] AMERICAHemoglobin (Bld) [Mass/Vol]11.7 g/dL Low13.0-17.0[facility] on above:Order Comment: Specimen Type: BLOOD SPECIMEN Ordering Facility: [facility] Address: [address] [place], [place] [address]Performed By: #### 2857-1 #### [facility] CLIA [id number] [address] [place] [address] [place] AMERICAImmature granulocytes (Bld) [#/Vol] 0.06 10*3/uLNormal<0.10[facility] on above:Order Comment: Specimen Type: BLOOD SPECIMEN Ordering Facility: [facility] Address: [address] [place], [place] [address]Performed By: #### 2857-1 #### [facility] CLIA [id number] [address] [place] [address] [place] AMERICAImmature granulocytes/100 WBC (Bld) 0.9 %NormalBethesda North Hospital on above:Order Comment: Specimen Type: BLOOD SPECIMEN Ordering Facility: [facility] Address: [address] [place], [place] [address]Performed By: #### 2857-1 #### [facility] CLIA [id number] [address] [place] [address] [place] AMERICALymphocytes (Bld) [#/Vol]2.01 10*3/uLNormal1.00-4.00[facility] on above:Order Comment: Specimen Type: BLOOD SPECIMEN Ordering Facility: [facility] Address: [address] [place], [place] [address]Performed By: #### 2857-1 #### [facility] CLIA [id number] [address] [place] [address] [place] AMERICALymphocytes/100 WBC (Bld)29.0 % NormalBethesda North Hospital on above:Order Comment: Specimen Type: BLOOD SPECIMEN Ordering Facility: [facility] Address: [address] [place], [place] [address]Performed By: #### 2857-1 #### [facility] CLIA [id number] [address] [place] [address] (RBC) [Entitic mass]32.1 pg Pjqoar36.0-34.0[facility] on above:Order Comment: Specimen Type: BLOOD SPECIMEN Ordering Facility: [facility] Address: [address] [place], [place] [address]Performed By: #### 2857-1 #### [facility] CLIA [id number] [address] [place] [address] (RBC) [Mass/Vol]33.6 g/dLNormal 30.5-36.0[facility] on above:Order Comment: Specimen Type: BLOOD SPECIMEN Ordering Facility: [facility] Address: [address] [place], [place] [address]Performed By: #### 2857-1 #### [facility] CLIA [id number] [address] [place] [address] [place] AMERICAMCV (RBC) [Entitic vol]95.6 fLNormal 80.0-100.0[facility] on above:Order Comment: Specimen Type: BLOOD SPECIMEN Ordering Facility: [facility] Address: [address] [place], [place] [address]Performed By: #### 2857-1 #### [facility] CLIA [id number] [address] [place] [address] [place] AMERICAMonocytes (Bld) [#/Vol]0.60 10*3/uL Normal<0.87[facility] on above:Order Comment: Specimen Type: BLOOD SPECIMEN Ordering Facility: [facility] Address: [address] [place], [place] [address]Performed By: #### 2857-1 #### [facility] CLIA [id number] [address] [place] [address] [place] AMERICAMonocytes/100 WBC (Bld)8.6 %Normal [facility] on above:Order Comment: Specimen Type: BLOOD SPECIMEN Ordering Facility: [facility] Address: [address] [place], [place] [address]Performed By: #### 2857-1 #### [facility] CLIA [id number] [address] [place] [address] [place] AMERICANeutrophils (Bld) [#/Vol]3.88 10*3/uLNormal1.45-7.50[facility] on above:Order Comment: Specimen Type: BLOOD SPECIMEN Ordering Facility: [facility] Address: [address] [place], [place] [address]Performed By: #### 2857-1 #### [facility] CLIA [id number] [address] [place] [address] [place] AMERICANeutrophils/100 WBC (Bld)55.9 % NormalBethesda North Hospital on above:Order Comment: Specimen Type: BLOOD SPECIMEN Ordering Facility: [facility] Address: [address] [place], [place] [address]Performed By: #### 2857-1 #### [facility] CLIA [id number] [address] [place] [address] [place] AMERICANucleated RBC (Bld) [#/Vol]10*3/uL Normal<0.01[facility] on above:Order Comment: Specimen Type: BLOOD SPECIMEN Ordering Facility: [facility] Address: [address] [place], [place] [address]Performed By: #### 2857-1 #### [facility] CLIA [id number] [address] [place] [address] [place] AMERICANucleated RBC/100 WBC (Bld) [Ratio] 0.0 /100 WBCNormalCUniversity Hospitals [facility] on above:Order Comment: Specimen Type: BLOOD SPECIMEN Ordering Facility: [facility] Address: [address] [place], [place] [address]Performed By: #### 2857-1 #### [facility] CLIA [id number] [address] [place] [address] [place] AMERICAPlatelet mean volume (Bld) [Entitic vol]10.4 fLNormal9.0-12.7CUniversity Hospitals [facility] on above:Order Comment: Specimen Type: BLOOD SPECIMEN Ordering Facility: [facility] Address: [address] [place], [place] [address]Performed By: #### 2857-1 #### [facility] CLIA [id number] [address] [place] [address] [place] AMERICAPlatelets (Bld) [#/Vol]206 10*3/uL Tcqrfp801-907KdxxzzqhaBethesda North Hospital on above:Order Comment: Specimen Type: BLOOD SPECIMEN Ordering Facility: [facility] Address: [address] [place], [place] [address]Performed By: #### 2857-1 #### [facility] CLIA [id number] [address] [place] [address] STATES OF AMERICARBC (Bld) [#/Vol]3.64 10*6/uLLow 4.20-6.00[facility] on above:Order Comment: Specimen Type: BLOOD SPECIMEN Ordering Facility: [facility] Address: [address] [place], [place] [address]Performed By: #### 2857-1 #### [facility] CLIA [id number] [address] [place] [address] STATES AMERICAWBC (Bld) [#/Vol]6.94 10*3/uLNormal 3.70-11.00[facility] on above:Order Comment: Specimen Type: BLOOD SPECIMEN Ordering Facility: [facility] Address: [address] [place], [place] [address]Performed By: #### 2857-1 #### [facility] CLIA [id number] [address] [place] [address] AMERICAComprehensive metabolic 2000 panelon 24-53-1879Rkojifz [Mass/Vol]4.2 g/dLNormal3.9-4.9CCleveland [facility] Comment on above:Order Comment: Specimen Type: BLOOD SPECIMEN Ordering Facility: [facility] Address: [address] [place], [place] [address]Performed By: #### 55650-9 #### [facility] CLIA [id number] [address] [place] [address]ECR [Catalytic activity/Vol]83 U/WYleszn17-537WnfxrbzdsBethesda North Hospital on above:Order Comment: Specimen Type: BLOOD SPECIMEN Ordering Facility: [facility] Address: [address] [place], [place] [address]Performed By: #### 96505-8 #### [facility] CLIA [id number] [address] [place], [place] [address]WQJ [Catalytic activity/Vol]20 U/HPrtyyh14-78GskhciqzkBethesda North Hospital on above:Order Comment: Specimen Type: BLOOD SPECIMEN Ordering Facility: [facility] Address: [address] [place], [place] [address]Performed By: #### 11275-1 #### [facility] CLIA [id number] [address] [place], [place] [address]Jqvry gap [Moles/Vol]12 mmol/LNormal8-15[facility] on above:Order Comment: Specimen Type: BLOOD SPECIMEN Ordering Facility: [facility] Address: [address] [place], [place] [address]Performed By: #### 47331-5 #### [facility] CLIA [id number] [address] [place], [place] [address]BJW [Catalytic activity/Vol]19 U/CPffepg51-90TksniajjzBethesda North Hospital on above:Order Comment: Specimen Type: BLOOD SPECIMEN Ordering Facility: [facility] Address: [address] [place], [place] [address]Performed By: #### 94441-5 #### [facility] CLIA [id number] [address] [place], [place] [address]Tehnisxbj [Mass/Vol]0.8 mg/dLNormal0.2-1.3CUniversity Hospitals [facility] on above:Order Comment: Specimen Type: BLOOD SPECIMEN Ordering Facility: [facility] Address: [address] [place], [place] [address]Performed By: #### 00011-2 #### [facility] CLIA [id number] [address] [place], [place] [address]Feoypzq [Mass/Vol]10.0 mg/dLNormal8.5-10.2CUniversity Hospitals [facility] on above:Order Comment: Specimen Type: BLOOD SPECIMEN Ordering Facility: [facility] Address: [address] [place], [place] [address]Performed By: #### 74675-0 #### [facility] CLIA [id number] [address] [place], [place] [address]Qvahjvdm [Moles/Vol]103 mmol/WHrgflh86-402JjptbvhijBethesda North Hospital on above:Order Comment: Specimen Type: BLOOD SPECIMEN Ordering Facility: [facility] Address: [address] [place] [address]Gyrxvatnu By: #### 82539-8 #### [facility] CLIA [id number] [address] [place], [place] [address]GQ2 [Moles/Vol]27 mmol/XRzizor27-48VxrrnepokClinton Memorial Hospital Comment on above:Order Comment: Specimen Type: BLOOD SPECIMEN Ordering Facility: [facility] Address: [address] [place], [place] [address]Performed By: #### 42703-4 #### [facility] CLIA [id number] [address] [place] [address]Hqiwvmavap [Mass/Vol]0.73 mg/dLNormal0.73-1.22[facility] on above:Order Comment: Specimen Type: BLOOD SPECIMEN Ordering Facility: [facility] Address: [address] [place], [place] [address]Performed By: #### 22598-1 #### [facility] CLIA [id number] [address] [place] [address]28[address]uQTFfr SerPlBld CKD-EPI 245038 mL/min/1.73m???Normal>=60 [facility] on above:Order Comment: Specimen Type: BLOOD SPECIMEN Ordering Facility: [facility] Address: [address] [place] [address]Dlbcjg Comment: Estimated Glomerular Filtration Rate (eGFR) is [...] not accurately reflect actual GFR.Performed By: #### 61352-8 #### [facility] CLIA [id number] [address] [place], [place] [address]Tryjacb [Mass/Vol]118 mg/vKGmso95-52LtaqtobqcClinton Memorial Hospital Comment on above:Order Comment: Specimen Type: BLOOD SPECIMEN Ordering Facility: [facility] Address: [address] [place], [place] [address]Result Comment: The [place] Diabetes Association (ADA) provides guidance for cutoff [...] Standards of Medical Care in Diabetes 2016, [place] [employer]. Diabetes Care. 2016.39(Suppl 1).Performed By: #### 02028-8 #### [facility] CLIA [id number] [address] [place], [place] [address]Dlrmiqgvm [Moles/Vol]4.7 mmol/LNormal3.7-5.1CCleveland Clinic [facility] General Lodi HospitalComment on above:Order Comment: Specimen Type: BLOOD SPECIMEN Ordering Facility: [facility] Address: [address] [place] [address]Qblxxfuei By: #### 08955-6 #### [facility] CLIA [id number] [address] [place], [place] [address]Ccmfhgq [Mass/Vol]6.5 g/dLNormal6.3-8.0[facility] on above:Order Comment: Specimen Type: BLOOD SPECIMEN Ordering Facility: [facility] Address: [address] [place], [place] [address]Performed By: #### 99204-8 #### [facility] CLIA [id number] [address] [place], [place] [address]Zmnbun [Moles/Vol]142 mmol/FMqzjrp410-580KjniumjqgBethesda North Hospital on above:Order Comment: Specimen Type: BLOOD SPECIMEN Ordering Facility: [facility] Address: [address] [place], [place] [address]Performed By: #### 18147-4 #### [facility] CLIA [id number] [address] [place] [address]Bnlh nitrogen [Mass/Vol]11 mg/dLNormal9-24[facility] on above:Order Comment: Specimen Type: BLOOD SPECIMEN Ordering Facility: [facility] Address: [address] [place], [place] [address]Performed By: #### 85230-5 #### [facility] CLIA [id number] [address] [place] [address]NFS SerPl-aCncon 59-71-9103Inthnnydfjexkb (EPO) Qn15.5 mIU/mL Normal2.6-18.5CUniversity Hospitals TriPoint [facility] Center on above:Order Comment: Specimen Type: BLOOD SPECIMEN Ordering Facility: [facility] Address: [address] [place], [place] [address]Performed By: #### 2857-1 #### [facility] CLIA [id number] [address] [place], [place] [address]Ferritin SerPl-mCncon 05-15-2025 Ferritin [Mass/Vol]92.9 ng/eWHhfvgw80.3-565.7CUniversity Hospitals [facility] on above:Order Comment: Specimen Type: BLOOD SPECIMEN Ordering Facility: [facility] Address: [address] [place], [place] [address]Performed By: #### 01702-8 #### [facility] CLIA [id number] [address] [place] [address]Golgbw SerPl-mCncon 80-68-7958Kyqrar [Mass/Vol]ng/mLNormal>4.7 [facility] on above:Order Comment: Specimen Type: BLOOD SPECIMEN Ordering Facility: [facility] Address: [address] [place], [place] [address]Result Comment: A result of > 20 ng/mL is not necessarily indicative of a pathologic or treatable condition: it reflects a limitation of the test methodology. Assay reference range: 4.8 to 24.2 ng/mL. Suitable for detection of folate deficiency. Reference: Folate III (Folate III) [package insert V 1.0 Turkmen]. [employer], [place], [place]: May 2015.Performed By: #### 92375-5 #### [facility] CLIA [id number] [address] [place] [address]Wpvq and Iron binding capacity panelon 97-11-2319Nhmg [Mass/Vol]74 ug/lZCcfcop40-565SsessjjuoBethesda North Hospital on above:Order Comment: Specimen Type: BLOOD SPECIMEN Ordering Facility: [facility] Address: [address] [place], [place] [address]Performed By: #### 2857-1 #### [facility] CLIA [id number] [address] [place] [address] [place] OF AMERICAIron binding capacity [Mass/Vol]416 ug/nRHuke893-992NcyllqqnaBethesda North Hospital on above:Order Comment: Specimen Type: BLOOD SPECIMEN Ordering Facility: [facility] Address: [address] [place], [place] [address]Performed By: #### 2857-1 #### [facility] CLIA [id number] [address] [place] [address] [place] AMERICAIron/TIBC [Molar ratio]17.8 %Normal 15.0-57.0[facility] on above:Order Comment: Specimen Type: BLOOD SPECIMEN Ordering Facility: [facility] Address: [address] [place], [place] [address]Performed By: #### 2857-1 #### [facility] CLIA [id number] [address] [place] [address] [place] AMERICAPSA SerPl-mCncon 57-47-2871Gsavfaoz specific Ag [Mass/Vol]0.39 ng/mLNormal<2.60[facility] on above:Order Comment: Specimen Type: BLOOD SPECIMEN Ordering Facility: [facility] Address: [address] [place], [place] [address]Result Comment: Total PSA test methodology used is the Electrochemiluminescence Immunoassay by [employer]. Total PSA values by differing methodologies cannot be interchanged. Performed By: #### 2857-1 #### [facility] CLIA [id number] [address] [place], [place] [address]Vit B12 [facility] 05-15-2025 Cobalamin (Vitamin B12) [Mass/Vol]440 pg/rSVxcpgt568-9292Waylyprsu Clinic [facility]Communising [facility] on above:Order Comment: Specimen Type: BLOOD SPECIMEN Ordering Facility: [facility] Address: [address] [place], [place] [address]Performed By: #### 21322-4 #### [facility] CLIA [id number] [address] [place] [address]Pzding Onlyon 93-22-5061Mtddha [id number] Pablo Felix 1945 M Date Provider Department Tyrone 04/04/2025 [id number], HISTORICAL CARD [facility] Family History Problem Relation Age of Onset Coronary artery disease Father Family Status - Relation Status Age at FatherNormalUniversity of Grace Medical CenterAmbulatory Visit Summaryon 67-67-1658Nvkiickeax Visit SummaryAmbulatory Visit Summary PABLO FELIX :1945 [...] mg Tab) ipratropium nasal (ipratropium Nasal 0.06% [place]) metformin (metformin 1000 mg oral tablet) metoprolol [...] AM EDT With: Where: [facility] [address] [place] [address]- Monday2025 11:15 AM EDT With: Anthony SCRUGGS MD Where: [facility] [address] [place] [address]- You Need to Schedule the Following Appointments Follow Up with Anthony SCRUGGS MD, URL When: Comments: 6 mos w/ PSA, Lupron Where: [address] [place] [address] Medications What How Much When Instructions Unchanged [...] concerns Unchanged ipratropium nasal (ipratropium Nasal 0.06% [place]) Contact prescribing physician if questions or concerns [...] radiation t (more content not included)...[facility]edoU[facility] Office/Clinic Noteon 82-17-3980Xlydtuu Office/Clinic NoteUrology Office/Clinic Note Chief Complaint 6 [...] Contact Information KAEL JAMES, Anthony Lee, URL [address] [place] [address] [place] [address] Additional Instructions: 6 mos w/ PSA, Lupron [...] 1 tab(s), Oral, Daily ipratropium Nasal 0.06% [place] metformin 1000 mg oral tablet, Oral, BID [...] concerns: No., (more content not included)...[facility] ToledoComment on above:Result Comment: Electronically Signed By: Anthony SCRUGGS MD\.br\Date and Time Signed: 03/31/25 10:40 EDT\.br\Electronically Co-Signed By: Jeanine Crandall\.br\Date and Time Co-Signed: 03/31/25 10:35 EDTNo Panel InformationOrdered By: Outside Provider on 03-24-2025 Prostate Specific Antigen Screen0.42 ng/mL<=4.00[facility] CenterBasophils Auto (Bld) [#/Vol]Ordered By: Anirudh Quiroz on 03-20-2025 Basophils (Bld) [#/Vol]0.0 10 3/uL0.0-0.1FMemorial Health System Marietta [facility] Basophils/100 WBC Auto (Bld)Ordered By: Anirudh Quiroz on 03-20-2025 Basophils/100 WBC (Bld)0.5 %0.2-2.0[facility] Medical CenterCholesterol in LDL Calc [Mass/Vol]Ordered By: Anirudh Quiroz on 90-92-9038Qfonycyyeqe in LDL [Mass/Vol]66.6 mg/dLSt. Mary'S Medical CenterComment on above:<100 mg/dl AAGBDBS627-154 mg/dl NEAR OR ABOVE BXIYYFN217-891 mg/dl BORDERLINE GVOE398-346 mg/dl HIGH>190 mg/dl VERY HIGHCholesterol in VLDL Calc [Mass/Vol] Ordered By: Anirudh Quiroz on 41-02-7788Ymntbgzkcar in VLDL [Mass/Vol]23.4 mg/dL [facility] CenterEosinophils/100 WBC Auto (Bld)Ordered By: Anirudh Quiroz on 47-47-4809Afnlrytpesh/100 WBC (Bld)6.6 %0.9-7.0[facility] Medical CenterErythrocyte distribution width Auto (RBC) [Ratio]Ordered By: Anirudh Quiroz on 64-02-3968Hkvezgxulhj distribution width (RBC) [Ratio]12.6 %11.0-15.0[facility] Medical CenterGlobulin Calc (S) [Mass/Vol]Ordered By: Anirudh Quiroz on 12-39-4324Myjrztmm (S) [Mass/Vol]3.3 g/dLSt. Mary'S Medical CenterGlomerular filtration rate (GFR) estimation in non- AmericanOrdered By: Anirudh Quiroz on 04-45-4958UUH/1.73 sq M.predicted among non-blacks MDRD (S/P/Bld) [Vol rate/Area]mL/min/{1.73_m2}>=60 mL/min/1.73m 2FMemorial Health System Marietta Memorial HospitalHematocrit Auto (Bld) [Volume fraction]Ordered By: Anirudh Quiroz on 84-97-6829Qmtajjjjrv (Bld) [Volume fraction]33.8 %Low 42.0-54.0[facility] CenterHemoglobin [Mass/volume] in Blood Ordered By: Anirudh Quiroz on 34-15-1401Kzyonfhumz (Bld) [Mass/Vol]11.4 g/dLLow 14.0-18.0[facility] CenterLaboratory - Chemistry and Chemistry - challengeOrdered By: Anirudh Quiroz on 36-23-3660Ssvjfpv [Mass/Vol]3.3 g/dLLow 3.4-5.0[facility] CenterALP [Catalytic activity/Vol]71 U/L46-116 [facility] CenterALT [Catalytic activity/Vol]28 U/L16-63 [facility] CenterAST [Catalytic activity/Vol]17 U/L15-37 [facility] CenterBilirubin [Mass/Vol]0.8 mg/dL0.2-1.0[facility] CenterCalcium [Mass/Vol]8.9 mg/dL8.5-10.1FMemorial Health System Marietta Memorial HospitalChloride [Moles/Vol]105 mmol/X14-794HsdgnjorySt. Mary'S Medical CenterCholesterol [Mass/Vol]133 mg/dL<=200[facility] Cholesterol in HDL [Mass/Vol]43 mg/xM49-16MuzvyrtebSt. Mary'S Medical Center Comment on above:> or =60 mg/dl - LOW CARDIOVASCULAR RISK<40 mg/dl - HIGH CARDIOVASCULAR RISKCO2 [Moles/Vol]26.6 mmol/L21.0-32.0[facility] CenterCreatinine [Mass/Vol]0.81 mg/dL0.70-1.30[facility] GFR/1.73 sq M.predicted MDRD (S/P/Bld) [Vol rate/Area]mL/min/{1.73_m2}>=60 mL/min/1.73m 2FMemorial Health System Marietta Memorial HospitalGlucose [Mass/Vol]116 mg/dLHigh 74-106St[facility] CenterPotassium [Moles/Vol]5.2 mmol/LHigh 3.5-5.1FMemorial Health System Marietta Memorial HospitalProtein [Mass/Vol]6.6 g/dL6.4-8.2 [facility] Hospitalodium [Moles/Vol]140 mmol/F633-288IqwmwhxpxSt. Mary'S Medical CenterTriglyceride [Mass/Vol]117 mg/dL<=150St[facility] CenterTSH Qn1.719 m[IU]/L0.358-3.740[facility] Urea nitrogen [Mass/Vol]15.0 mg/dL7.0-18.0[facility] Medical CenterUrea nitrogen/Creatinine [Mass ratio]18.5 mg/mgSt. Mary'S Medical Center Laboratory - Hematology and Cell countsOrdered By: Anirudh Quiroz on 03-20-2025 Immature granulocytes/100 WBC (Bld)0.7 %High0.0-0.5FMemorial Health System Marietta Memorial HospitalLeukocytes [#/volume] corrected for nucleated erythrocytes in Blood by Automated counOrdered By: Anirudh Quiroz on 08-01-4008DPM corrected for nucl RBC Auto (Bld) [#/Vol]5.6 10 3/uL4.0-11.0[facility] Lymphocytes Auto (Bld) [#/Vol]Ordered By: Anirudh Quiroz on 03-20-2025 Lymphocytes (Bld) [#/Vol]1.5 10 3/uL1.2-3.8[facility] Lymphocytes/100 WBC Auto (Bld)Ordered By: Anirudh Quiroz on 03-20-2025 Lymphocytes/100 WBC (Bld)26.7 %20.5-60.0[facility] HospitalH Auto (RBC) [Entitic mass]Ordered By: Anirudh Quiroz on 26-46-7453QFC (RBC) [Entitic mass]32.2 pg25.9-34.0[facility] Medical CenterMCHC Auto (RBC) [Mass/Vol]Ordered By: Anirudh Quiroz on 00-86-6991VUXO (RBC) [Mass/Vol]33.7 g/dL 29.9-35.2FMemorial Health System Marietta Memorial HospitalMCV Auto (RBC) [Entitic vol]Ordered By: Anirudh Quiroz on 99-05-2860PYJ (RBC) [Entitic vol]95.5 qZTvhn66.0-94.0 [facility] Medical CenterMonocytes Auto (Bld) [#/Vol]Ordered By: Anirudh Quiroz on 60-79-4248Kxspiqbos (Bld) [#/Vol]0.5 10 3/uL0.3-0.8St[facility] Medical CenterMonocytes/100 WBC Auto (Bld)Ordered By: Anirudh Quiroz on 27-06-0154Wbmbpyare/100 WBC (Bld)9.6 %1.7-12.0[facility] Neutrophils Auto (Bld) [#/Vol]Ordered By: Anirudh Quiroz on 03-20-2025 Neutrophils (Bld) [#/Vol]3.1 10 3/uL1.4-6.5FMemorial Health System Marietta Memorial Hospital Neutrophils/100 WBC Auto (Bld)Ordered By: Anirudh Quiroz on 03-20-2025 Neutrophils/100 WBC (Bld)55.9 %43.0-75.0[facility] CenterNo Panel InformationOrdered By: Anirudh Quiroz on 24-87-7036Pfjsazpazkl # (Auto)0.4 10 3/uL0.0-0.7FMemorial Health System Marietta Memorial HospitalImmature Granulocyte # (Auto) 0.04 10 3/uLHigh0.00-0.03[facility] CenterOffice Visiton 92-44-7591Lwstfp-up [id number] Pablo Felix 1945 M Date Provider Department Center 03/20/2025 Lakia-ANIRUDH QUIROZ CARD [facility] Family History Problem Relation Age of Onset Coronary artery disease Father Family Status - Relation Status Age at Father Level of Service:35326 [place] OFFICE/OUTPATIENT ESTABLISHED MOD MDM 30 MIN Reason for Visit and Comments: Coronary Artery Disease [187] - Denies chest pain and SOB. No recent testing. Valve Disorder [3372] - Denies lightheadedness and palpitations. Hypertension [045626] - Had labs in January 2025. Hyperlipidemia [182] - [facility].NormalUnDayton VA Medical CenterPlatelet mean volume Auto (Bld) [Entitic vol]Ordered By: Anirudh Quiroz on 83-40-5310Kehresbk mean volume (Bld) [Entitic vol]10.4 fL9.5-13.5FMemorial Health System Marietta Memorial HospitalPlatelets Auto (Bld) [#/Vol]Ordered By: Anirudh Quiroz on 27-33-7282Bvbxtqvgn (Bld) [#/Vol]185 10 3/tX667-429IcyhcaawxSt. Mary'S Medical CenterRBC Auto (Bld) [#/Vol] Ordered By: Anirudh Quiroz on 74-80-7840EAJ (Bld) [#/Vol]3.54 10 6/uLLow 4.70-6.10[facility] Hospitalerum or plasma albumin/globulin mass ratioOrdered By: Anirudh Quiroz on 45-03-8779Wdiqrwh/Globulin [Mass ratio]1.0 {ratio}[facility] Hospitalerum or plasma anion gap determination Ordered By: Anirudh Quiroz on 97-41-4284Cxsoi gap [Moles/Vol]13.6 mmol/L [facility] Hospitalerum or plasma total cholesterol/high density lipoprotein (HDL) cholesterol mass ratOrdered By: Anirudh Quiroz on 03-20-2025 Cholesterol.total/Cholesterol in HDL [Mass ratio]3.1 {ratio}[facility] Medical CenterComment on above:3.3 - 4.4 LOW RISK4.4 - 7.1 AVERAGE RISK7.1 - 11.0 MODERATE RISK>11.0 HIGH RISKNo Panel Informationon 42-05-9070BVAP HealthcareCNOVSPon 47-39-9627MWNWWOPzyho (SP) Office ([place]) PABLO FELIX ([id number]) 1945 M Date Time Provider Department 02/20/25 10:20 AM SAUL TRACEY During your visit today, we recorded the following information about you: Temperature Pulse Respiration Blood pressure 97.6 degrees 60/minute 16/minute 130/84 Weight 91.4 kg Saul Tracey MD 02/20/2025 10:48 AM Signed NAME: Pablo Felix CLINIC NO.: [id number] DATE OF SERVICE: February 20, 2025 (Denice) Some elements in this clinic note that are critical to medical decision making have been carefully reviewed and included from a prior clinic note dated: 11/07/2024 (Dheeraj) Referring Provider: RADHA Additional Clinicians involved in Pablo Felix's care: Dr. Jamar Fall, Dr. Anthony Scruggs, Dr. Khan, [facility] Cardiology DIAGNOSIS: Metastatic prostate cancer CASE SUMMARY / ASSESSMENT: 80 year old man with. 1. Metastatic prostate cancer (HCC) - ICD9: 185, ICD10: C61 (primary diagnosis) The patient was diagnosed with early-stage high-grade prostate cancer in June 2014 (TRUS biopsy 07/02/2014). He underwent a radical prostatectomy on 11/05/2014. Pathology consistent with stage IIIC (pT2b, N0, M0), [place] 5+4 equal 9. 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 Stable on current medications. Continue per [...] function is normal. Ane (more content not included)...NormalClinton Memorial HospitalBasophils Auto (Bld) [#/Vol]Ordered By: Marco A Esqueda on 21-63-9516Fizaljpyx (Bld) [#/Vol]0.03 10*3/uL<0.11St[facility] Medical CenterBasophils/100 WBC Auto (Bld)Ordered By: Marco A Esqueda on 00-53-8761Gwztavast/100 WBC (Bld)0.4 %[facility] Medical CenterBlood manual differential comment interpretation narrativeOrdered By: Marco A Esqueda on 48-61-3260Ywhpgn differential comment [place] (Bld) [Interp]AutoSt. Mary'S Medical CenterCBC W Auto Differential panel (Bld)on 99-16-9580Ufmscjhrr (Bld) [#/Vol]0.03 10*3/uLNormal<0.11CUniversity [facility]als [facility] on above:Order Comment: Specimen Type: BLOOD SPECIMEN Ordering Facility: [facility] Address: [address] [place], [place] [address]Performed By: #### 2857-1 #### [facility] CLIA [id number] [address] [place] [address] [place] AMERICABasophils/100 WBC (Bld)0.4 %Normal [facility] on above:Order Comment: Specimen Type: BLOOD SPECIMEN Ordering Facility: [facility] Address: [address] [place], [place] [address]Performed By: #### 2857-1 #### [facility] CLIA [id number] [address] [place] [address] [place] AMERICADifferential cell count method Nom (Bld)AutoNormalCUniversity Hospitals TriPoint Medical Center on above:Order Comment: Specimen Type: BLOOD SPECIMEN Ordering Facility: [facility] Address: [address] [place], [place] [address]Performed By: #### 2857-1 #### [facility] CLIA [id number] [address] [place] [address] [place] AMERICAEosinophils (Bld) [#/Vol]0.53 10*3/uLHigh<0.46[facility] on above:Order Comment: Specimen Type: BLOOD SPECIMEN Ordering Facility: [facility] Address: [address] [place], [place] [address]Performed By: #### 2857-1 #### [facility] CLIA [id number] [address] [place] [address] [place] AMERICAEosinophils/100 WBC (Bld)7.5 %Normal [facility] on above:Order Comment: Specimen Type: BLOOD SPECIMEN Ordering Facility: [facility] Address: [address] [place], [place] [address]Performed By: #### 2857-1 #### [facility] CLIA [id number] [address] [place] [address] [place] AMERICAErythrocyte distribution width (RBC) [Ratio]12.7 %Vrszpk31.5-15.0[facility] on above:Order Comment: Specimen Type: BLOOD SPECIMEN Ordering Facility: [facility] Address: [address] [place], [place] [address]Performed By: #### 2857-1 #### [facility] CLIA [id number] [address] [place] [address] [place] AMERICAHematocrit (Bld) [Volume fraction] 35.3 %Low39.0-51.0[facility] on above:Order Comment: Specimen Type: BLOOD SPECIMEN Ordering Facility: [facility] Address: [address] [place], [place] [address]Performed By: #### 2857-1 #### [facility] CLIA [id number] [address] [place] [address] [place] AMERICAHemoglobin (Bld) [Mass/Vol]12.0 g/dL Low13.0-17.0[facility] on above:Order Comment: Specimen Type: BLOOD SPECIMEN Ordering Facility: [facility] Address: [address] [place], [place] [address]Performed By: #### 2857-1 #### [facility] CLIA [id number] [address] [place] [address] [place] AMERICAImmature granulocytes (Bld) [#/Vol] 0.06 10*3/uLNormal<0.10[facility] on above:Order Comment: Specimen Type: BLOOD SPECIMEN Ordering Facility: [facility] Address: [address] [place], [place] [address]Performed By: #### 2857-1 #### [facility] CLIA [id number] [address] [place] [address] [place] AMERICAImmature granulocytes/100 WBC (Bld) 0.8 %NormalBethesda North Hospital on above:Order Comment: Specimen Type: BLOOD SPECIMEN Ordering Facility: [facility] Address: [address] [place], [place] [address]Performed By: #### 2857-1 #### [facility] CLIA [id number] [address] [place] [address] [place] AMERICALymphocytes (Bld) [#/Vol]2.09 10*3/uLNormal1.00-4.00[facility] on above:Order Comment: Specimen Type: BLOOD SPECIMEN Ordering Facility: [facility] Address: [address] [place], [place] [address]Performed By: #### 2857-1 #### [facility] CLIA [id number] [address] [place] [address] [place] AMERICALymphocytes/100 WBC (Bld)29.5 % NormalBethesda North Hospital on above:Order Comment: Specimen Type: BLOOD SPECIMEN Ordering Facility: [facility] Address: [address] [place], [place] [address]Performed By: #### 2857-1 #### [facility] CLIA [id number] [address] [place] [address] [place] AMERICAMCH (RBC) [Entitic mass]32.5 pg Zqxltd96.0-34.0[facility] on above:Order Comment: Specimen Type: BLOOD SPECIMEN Ordering Facility: [facility] Address: [address] [place], [place] [address]Performed By: #### 2857-1 #### [facility] CLIA [id number] [address] [place] [address] [facility] MEDICAL CENTERMCHC (RBC) [Mass/Vol]34.0 g/dLNormal 30.5-36.0[facility] on above:Order Comment: Specimen Type: BLOOD SPECIMEN Ordering Facility: [facility] Address: [address] [place], [place] [address]Performed By: #### 2857-1 #### [facility] CLIA [id number] [address] [place], [place] [address]V (RBC) [Entitic vol]95.7 fLNormal 80.0-100.0[facility] on above:Order Comment: Specimen Type: BLOOD SPECIMEN Ordering Facility: [facility] Address: [address] [place], [place] [address]Performed By: #### 2857-1 #### [facility] CLIA [id number] [address] [place] [address] [place] AMERICAMonocytes (Bld) [#/Vol]0.68 10*3/uL Normal<0.87[facility] on above:Order Comment: Specimen Type: BLOOD SPECIMEN Ordering Facility: [facility] Address: [address] [place], [place] [address]Performed By: #### 2857-1 #### [facility] CLIA [id number] [address] [place] [address] [place] AMERICAMonocytes/100 WBC (Bld)9.6 %Normal [facility] on above:Order Comment: Specimen Type: BLOOD SPECIMEN Ordering Facility: [facility] Address: [address] [place], [place] [address]Performed By: #### 2857-1 #### [facility] CLIA [id number] [address] [place] [address] [place] AMERICANeutrophils (Bld) [#/Vol]3.70 10*3/uLNormal1.45-7.50[facility] on above:Order Comment: Specimen Type: BLOOD SPECIMEN Ordering Facility: [facility] Address: [address] [place], [place] [address]Performed By: #### 2857-1 #### [facility] CLIA [id number] [address] [place] [address] [place] AMERICANeutrophils/100 WBC (Bld)52.2 % NormalBethesda North Hospital on above:Order Comment: Specimen Type: BLOOD SPECIMEN Ordering Facility: [facility] Address: [address] [place], [place] [address]Performed By: #### 2857-1 #### [facility] CLIA [id number] [address] [place] [address] [place] AMERICANucleated RBC (Bld) [#/Vol]10*3/uL Normal<0.01[facility] on above:Order Comment: Specimen Type: BLOOD SPECIMEN Ordering Facility: [facility] Address: [address] [place], [place] [address]Performed By: #### 2857-1 #### [facility] CLIA [id number] [address] [place] [address] [place] AMERICANucleated RBC/100 WBC (Bld) [Ratio] 0.0 /100 WBCNormalCUniversity Hospitals TriPoint Medical Center on above:Order Comment: Specimen Type: BLOOD SPECIMEN Ordering Facility: [facility] Address: [address] [place], [place] [address]Performed By: #### 2857-1 #### [facility] CLIA [id number] [address] [place] [address] [place] AMERICAPlatelet mean volume (Bld) [Entitic vol]10.1 fLNormal9.0-12.7CUniversity Hospitals TriPoint Medical Center on above:Order Comment: Specimen Type: BLOOD SPECIMEN Ordering Facility: [facility] Address: [address] [place], [place] [address]Performed By: #### 2857-1 #### [facility] CLIA [id number] [address] [place] [address] [place] AMERICAPlatelets (Bld) [#/Vol]204 10*3/uL Bmvmpk002-178UwcdbxyilBethesda North Hospital on above:Order Comment: Specimen Type: BLOOD SPECIMEN Ordering Facility: [facility] Address: [address] [place], [place] [address]Performed By: #### 2857-1 #### [facility] CLIA [id number] [address] [place] [address] [place] AMERICARBC (Bld) [#/Vol]3.69 10*6/uLLow 4.20-6.00[facility] on above:Order Comment: Specimen Type: BLOOD SPECIMEN Ordering Facility: [facility] Address: [address] [place], [place] [address]Performed By: #### 2857-1 #### [facility] CLIA [id number] [address] [place] [address] STATES OF AMERICAWBC (Bld) [#/Vol]7.09 10*3/uLNormal 3.70-11.00[facility] on above:Order Comment: Specimen Type: BLOOD SPECIMEN Ordering Facility: [facility] Address: [address] [place], [place] [address]Performed By: #### 2857-1 #### [facility] CLIA [id number] [address] [place] [address] [place] AMERICAComprehensive metabolic 2000 panelon 28-22-8355Ddfkjmx [Mass/Vol]4.2 g/dLNormal3.9-4.9CCleveland [facility] Comment on above:Order Comment: Specimen Type: BLOOD SPECIMEN Ordering Facility: [facility] Address: [address] [place], [place] [address]Performed By: #### 2857-1 #### [facility] CLIA [id number] [address] [place] [address] [place] AMERICAALP [Catalytic activity/Vol]73 U/L Bymbpc22-595UbsmqbdtgBethesda North Hospital on above:Order Comment: Specimen Type: BLOOD SPECIMEN Ordering Facility: [facility] Address: [address] [place], [place] [address]Performed By: #### 2857-1 #### [facility] CLIA [id number] [address] [place] [address] [place] AMERICAALT [Catalytic activity/Vol]16 U/L Wagtsg46-18XpcbrzzbmBethesda North Hospital on above:Order Comment: Specimen Type: BLOOD SPECIMEN Ordering Facility: [facility] Address: [address] [place], [place] [address]Performed By: #### 2857-1 #### [facility] CLIA [id number] [address] [place] [address] [place] AMERICAAnion gap [Moles/Vol]10 mmol/LNormal 8-15[facility] on above:Order Comment: Specimen Type: BLOOD SPECIMEN Ordering Facility: [facility] Address: [address] [place], [place] [address]Performed By: #### 2857-1 #### [facility] CLIA [id number] [address] [place] [address] [place] AMERICAAST [Catalytic activity/Vol]17 U/L Zlydzy35-54OpzeyujseBethesda North Hospital on above:Order Comment: Specimen Type: BLOOD SPECIMEN Ordering Facility: [facility] Address: [address] [place], [place] [address]Performed By: #### 2857-1 #### [facility] CLIA [id number] [address] [place] [address] [place] AMERICABilirubin [Mass/Vol]0.6 mg/dLNormal 0.2-1.3CUniversity Hospitals TriPoint Medical Center on above:Order Comment: Specimen Type: BLOOD SPECIMEN Ordering Facility: [facility] Address: [address] [place], [place] [address]Performed By: #### 2857-1 #### [facility] CLIA [id number] [address] [place] [address] [place] AMERICACalcium [Mass/Vol]9.3 mg/dLNormal 8.5-10.2CUniversity Hospitals [facility] Center on above:Order Comment: Specimen Type: BLOOD SPECIMEN Ordering Facility: [facility] Address: [address] [place], [place] [address]Performed By: #### 2857-1 #### [facility] CLIA [id number] [address] [place] [address] [place] AMERICAChloride [Moles/Vol]101 mmol/LNormal 98-107[facility] on above:Order Comment: Specimen Type: BLOOD SPECIMEN Ordering Facility: [facility] Address: [address] [place], [place] [address]Performed By: #### 2857-1 #### [facility] CLIA [id number] [address] [place] [address] [place] AMERICACO2 [Moles/Vol]25 mmol/KJaqfkd43-35 [facility] on above:Order Comment: Specimen Type: BLOOD SPECIMEN Ordering Facility: [facility] Address: [address] [place], [place] [address]Performed By: #### 2857-1 #### [facility] CLIA [id number] [address] [place] [address] [place] AMERICACreatinine [Mass/Vol]0.68 mg/dLLow 0.73-1.22[facility] on above:Order Comment: Specimen Type: BLOOD SPECIMEN Ordering Facility: [facility] Address: [address] [place], [place] [address]Performed By: #### 2857-1 #### [facility] CLIA [id number] [address] [place] [address] [place] AMERICAeGFRcr SerPlBld CKD-EPI 436670 mL/min/1.73m???Normal>=60[facility] on above:Order Comment: Specimen Type: BLOOD SPECIMEN Ordering Facility: [facility] Address: [address] [place], [place] [address]Result Comment: Estimated Glomerular Filtration Rate (eGFR) is [...] reflect actual GFR.Performed By: #### 2857-1 #### [facility] CLIA [id number] [address] [place] [address] [place] AMERICAGlucose [Mass/Vol]122 mg/fGFuzx71-61 [facility] on above:Order Comment: Specimen Type: BLOOD SPECIMEN Ordering Facility: [facility] Address: [address] [place], [place] [address]Result Comment: The [place] [employer] (ADA) provides guidance for cutoff [...] Standards of Medical Care in Diabetes 2016, [place] [employer]. Diabetes Care. 2016.39(Suppl 1).Performed By: #### 2857-1 #### [facility] CLIA [id number] [address] [place] [address] [place] AMERICAPotassium [Moles/Vol]4.5 mmol/L Normal3.7-5.1CUniversity Hospitals TriPoint Medical Center on above:Order Comment: Specimen Type: BLOOD SPECIMEN Order[facility] Facility: [facility] Address: [address] [place], [place] [address]linda [place] [id number] By: #### 2857-1 #### [facility] CLIA [id number] [address] [place] [address] [place] AMERICAProtein [Mass/Vol]6.4 g/dLNormal 6.3-8.0[facility] on above:Order Comment: Specimen Type: BLOOD SPECIMEN Ordering Facility: [facility] Address: [address] [place], [place] [address]Performed By: #### 2857-1 #### [facility] CLIA [id number] [address] [place] [address] [place] AMERICASodium [Moles/Vol]136 mmol/LNormal 136-144[facility] on above:Order Comment: Specimen Type: BLOOD SPECIMEN Ordering Facility: [facility] Address: [address] [place], [place] [address]Performed By: #### 2857-1 #### [facility] CLIA [id number] [address] [place] [address] [place] AMERICAUrea nitrogen [Mass/Vol]14 mg/dL Normal9-24[facility] on above:Order Comment: Specimen Type: BLOOD SPECIMEN Ordering Facility: [facility] Address: [address] [place], [place] [address]Performed By: #### 2857-1 #### [facility] CLIA [id number] [address] [place] [address] [place] AMERICAEosinophils/100 WBC Auto (Bld) Ordered By: Marco A Esqueda on 65-83-5640Yyauupajvqt/100 WBC (Bld)7.5 %[facility]S Medical CenterErythrocyte distribution width Auto (RBC) [Ratio]Ordered By: Marco A Esqueda on 10-03-2804Wvdwpfjtkky distribution width (RBC) [Ratio]12.7 % 11.5-15.0[facility]S Medical CenterHematocrit Auto (Bld) [Volume fraction]Ordered By: Marco A Esqueda on 67-65-0268Xyypyafjxg (Bld) [Volume fraction]35.3 %Low39.0-51.0[facility] CenterHemoglobin [Mass/volume] in BloodOrdered By: Marco A Esqueda on 38-46-2772Vqfusiklbj (Bld) [Mass/Vol]12.0 g/dLLow13.0-17.0[facility] CenterLaboratory - Hematology and Cell countsOrdered By: Marco A Esqueda on 83-66-0360Wpjmkfuohrg (Bld) [#/Vol]0.53 10*3/uLHigh<0.46[facility] CenterImmature granulocytes (Bld) [#/Vol]0.06 10*3/uL<0.10[facility] Immature granulocytes/100 WBC (Bld)0.8 %[facility] Leukocytes [#/volume] corrected for nucleated erythrocytes in Blood by Automated counOrdered By: Marco A Esqueda on 48-94-7771PMM corrected for nucl RBC Auto (Bld) [#/Vol]7.09 k/uL3.70-11.00[facility] CenterLymphocytes Auto (Bld) [#/Vol]Ordered By: Marco A Esuqeda on 48-02-2957Anudiazlobn (Bld) [#/Vol]2.09 10*3/uL1.00-4.00[facility] CenterLymphocytes/100 WBC Auto (Bld) Ordered By: Marco A Esqueda on 08-79-3204Vtkngbnafft/100 WBC (Bld)29.5 %[facility] Auto (RBC) [Entitic mass]Ordered By: Marco A Esqueda on 40-97-5431SLK (RBC) [Entitic mass]32.5 pg26.0-34.0[facility] CenterMCHC Auto (RBC) [Mass/Vol]Ordered By: Marco A Esqueda on 13-54-6307YODZ (RBC) [Mass/Vol]34.0 g/dL30.5-36.0[facility] CenterMCV Auto (RBC) [Entitic vol]Ordered By: Marco A Esqueda on 86-85-9972EKB (RBC) [Entitic vol]95.7 fL80.0-100.0[facility] CenterMonocytes Auto (Bld) [#/Vol]Ordered By: Marco A Esqueda on 15-60-4497Raikncxtc (Bld) [#/Vol]0.68 10*3/uL<0.87[facility] CenterMonocytes/100 WBC Auto (Bld)Ordered By: Marco A Esqueda on 90-09-7461Pwssdltyp/100 WBC (Bld)9.6 %[facility] Neutrophils Auto (Bld) [#/Vol]Ordered By: Marco A Esqueda on 98-58-8360Cvrwweipylr (Bld) [#/Vol]3.70 10*3/uL1.45-7.50[facility] Neutrophils/100 WBC Auto (Bld)Ordered By: Marco A Esqueda on 2025 Neutrophils/100 WBC (Bld)52.2 %[facility] CenterNo Panel InformationOrdered By: Marco A Esqueda on 71-05-2602Owkbuunu Specific Antigen0.26 ng/mL<2.60[facility] CenterComment on above:Total PSA test methodology used is the Electrochemiluminescence Immunoassay by [employer]. Total PSA values by differing methodologies cannot be interchanged. Nucleated RBC Auto (Bld) [#/Vol]Ordered By: Marco A Esqueda on 93-10-6763Iahwqaxmj RBC (Bld) [#/Vol]10*3/uL<0.01[facility] Medical CenterNucleated erythrocytes [Presence] in Blood by Automated countOrdered By: Marco A Esqueda on 97-19-4365Jbnaubypo RBC Auto Ql (Bld)0.0 /100{WBC}[facility] Medical CenterPSA SerPl-mCncon 02-25-7305Rozqaejl specific Ag [Mass/Vol]0.26 ng/mLNormal <2.60[facility] HospitalComment on above:Order Comment: Specimen Type: BLOOD SPECIMEN Ordering Facility: [facility] Address: [address] [place], [place] [address]Result Comment: Total PSA test methodology used is the Electrochemiluminescence Immunoassay by [employer]. Total PSA values by differing methodologies cannot be interchanged. Performed By: #### 34034-3 #### [facility] CLIA [id number] [address] [place] [address] 16210Jljjqtyj mean volume Auto (Bld) [Entitic vol]Ordered By: Marco A Esqueda on 26-73-1045Xktjfind mean volume (Bld) [Entitic vol]10.1 fL9.0-12.7 [facility] Medical CenterPlatelets Auto (Bld) [#/Vol]Ordered By: Marco A Esqueda on 90-36-9546Krowzegvf (Bld) [#/Vol]204 10*3/kP758-430WsyzmzoljSt. Mary'S Medical CenterRBC Auto (Bld) [#/Vol]Ordered By: Marco A Esqueda on 67-31-8613UEQ (Bld) [#/Vol]3.69 10*6/uLLow4.20-6.00[facility] Medical CenterCNOVSPon 05-81-6425RXEHEKOfurp ([place]) Office ([place]) PABLO FELIX ([id number]) 1945 M Date Time Provider Department 11/07/24 [...] PHYSICIANS: Dr. Anthony Scruggs, Dr. Khan, [facility] Cardiology Portions of this encounter note [...] mg 24 hr tablet Take by mouth. Ywxovweolqpfm-Bkotcego-Chpzdv (MULTIVITAMIN 50 PLUS) tab Take 1 tablet [...] prostatectomy and bilateral pelvic lymphadenectomy ([facility]) Poorly differentiated prostatic adenocarcinoma of left prostate. Left base margin positive for neoplasm. Seminal vesicles with no diagnostic abnormality. 2 resected lymph nodes negative for neoplasm. LABS: Hemoglobin (g/dL) Date Value 10/31/2024 12.4 05/08/2018 12.8 Hem (more content not included)...NormalOhioHealth Berger Hospital W Auto Differential panel (Bld)on 25-34-9928Yyjvuuxds (Bld) [#/Vol]0.05 10*3/uLNormal <0.11CCleveland Clinic [facility] Lodi HospitalComment on above:Order Comment: Specimen Type: BLOOD SPECIMEN Ordering Facility: [facility] Address: [address] [place], [place] [address]Bfrkoizop By: #### 58615-1 #### [facility] CLIA [id number] [address] [place] [address] 80093Rwwmnipjk/100 WBC (Bld)0.7 %[facility] Comment on above:Order Comment: Specimen Type: BLOOD SPECIMEN Ordering Facility: [facility] Address: [address] [place], [place] [address]Lzpfmyrut By: #### 70011-9 #### [facility] CLIA [id number] [address] [place], [place] [address]Idkdamtbuymm cell count method Nom (Bld)AutoNormalClevelFairfield Medical Center on above:Order Comment: Specimen Type: BLOOD SPECIMEN Ordering Facility: [facility] Address: [address] [place], [place] [address]Performed By: #### 01029-6 #### [facility] CLIA [id number] [address] [place] [address] 38519Yibigsrdlku (Bld) [#/Vol]0.51 10*3/uLHigh<0.46[facility] on above:Order Comment: Specimen Type: BLOOD SPECIMEN Ordering Facility: [facility] Address: [address] [place], [place] [address]Performed By: #### 41472-7 #### [facility] CLIA [id number] [address] [place] [address] 67780Tostuhlkfve/100 WBC (Bld)7.3 %NormalClinton Memorial Hospital Comment on above:Order Comment: Specimen Type: BLOOD SPECIMEN Ordering Facility: [facility] Address: [address] [place], [place] [address]Performed By: #### 55387-9 #### [facility] CLIA [id number] [address] [place] [address] 71860Ldjzntldhnp distribution width (RBC) [Ratio]12.9 %Normal 11.5-15.0[facility] on above:Order Comment: Specimen Type: BLOOD SPECIMEN Ordering Facility: [facility] Address: [address] [place], [place] [address]Performed By: #### 13479-6 #### [facility] CLIA [id number] [address] [place] [address] 86079Rwjepknnic (Bld) [Volume fraction]36.0 %Low39.0-51.0[facility] on above:Order Comment: Specimen Type: BLOOD SPECIMEN Ordering Facility: [facility] Address: [address] [place], [place] [address]Performed By: #### 84706-4 #### [facility] CLIA [id number] [address] [place] [address] 37232Jobhomwdun (Bld) [Mass/Vol]12.4 g/dLLow13.0-17.0[facility] on above:Order Comment: Specimen Type: BLOOD SPECIMEN Ordering Facility: [facility] Address: [address] [place], [place] [address]Performed By: #### 92190-0 #### [facility] CLIA [id number] [address] [place] [address] 33830Wisisayj granulocytes (Bld) [#/Vol]0.04 10*3/uLNormal<0.10 [facility] on above:Order Comment: Specimen Type: BLOOD SPECIMEN Ordering Facility: [facility] Address: [address] [place], [place] [address]Performed By: #### 79355-8 #### [facility] CLIA [id number] [address] [place] [address] 65927Idwjwqeh granulocytes/100 WBC (Bld)0.6 %NormalBethesda North Hospital on above:Order Comment: Specimen Type: BLOOD SPECIMEN Ordering Facility: [facility] Address: [address] [place], [place] [address]Performed By: #### 05761-8 #### [facility] CLIA [id number] [address] [place] [address] 48555Apporixnjqo (Bld) [#/Vol]1.80 10*3/uLNormal1.00-4.00[facility] on above:Order Comment: Specimen Type: BLOOD SPECIMEN Ordering Facility: [facility] Address: [address] [place], [place] [address]Performed By: #### 11395-7 #### [facility] CLIA [id number] [address] [place] [address] 46714Vzafsepksjf/100 WBC (Bld)25.8 %NormalBethesda North Hospital on above:Order Comment: Specimen Type: BLOOD SPECIMEN Ordering Facility: [facility] Address: [address] [place], [place] [address]Performed By: #### 36682-2 #### [facility] CLIA [id number] [address] [place] [address] 27635AHY (RBC) [Entitic mass]32.2 plHixytm29.0-34.0[facility] on above:Order Comment: Specimen Type: BLOOD SPECIMEN Ordering Facility: [facility] Address: [address] [place], [place] [address]Performed By: #### 82039-0 #### [facility] CLIA [id number] [address] [place] [address] 53845RRIF (RBC) [Mass/Vol]34.4 g/jEKuqugx17.5-36.0[facility] on above:Order Comment: Specimen Type: BLOOD SPECIMEN Ordering Facility: [facility] Address: [address] [place], [place] [address]Performed By: #### 74634-7 #### [facility] CLIA [id number] [address] [place] [address] 24811ISE (RBC) [Entitic vol]93.5 eOFcjzzd37.0-100.0[facility] on above:Order Comment: Specimen Type: BLOOD SPECIMEN Ordering Facility: [facility] Address: [address] [place], [place] [address]Performed By: #### 35083-5 #### [facility] CLIA [id number] [address] [place] [address] 14506Krlexidfg (Bld) [#/Vol]0.69 10*3/uLNormal<0.87[facility] on above:Order Comment: Specimen Type: BLOOD SPECIMEN Ordering Facility: [facility] Address: [address] [place], [place] [address]Performed By: #### 33390-2 #### [facility] CLIA [id number] [address] [place] [address] 90252Afkvrbadg/100 WBC (Bld)9.9 %NormalClinton Memorial Hospital Comment on above:Order Comment: Specimen Type: BLOOD SPECIMEN Ordering Facility: [facility] Address: [address] [place], [place] [address]Performed By: #### 94951-5 #### [facility] CLIA [id number] [address] [place] [address] 69777Zcdjylpxzsf (Bld) [#/Vol]3.90 10*3/uLNormal1.45-7.50[facility] on above:Order Comment: Specimen Type: BLOOD SPECIMEN Ordering Facility: [facility] Address: [address] [place], [place] [address]Performed By: #### 17154-1 #### [facility] CLIA [id number] [address] [place] [address] 52347Hkueldlswgb/100 WBC (Bld)55.7 %NormalClinton Memorial HospitalComment on above:Order Comment: Specimen Type: BLOOD SPECIMEN Ordering Facility: [facility] Address: [address] [place], [place] [address]Performed By: #### 48483-3 #### [facility] CLIA [id number] [address] [place] [address] 07163Hdarxwcgp RBC (Bld) [#/Vol]10*3/uLNormal<0.01[facility] on above:Order Comment: Specimen Type: BLOOD SPECIMEN Ordering Facility: [facility] Address: [address] [place], [place] [address]Performed By: #### 37372-4 #### [facility] CLIA [id number] [address] [place] [address] 48471Oiuxgazkg RBC/100 WBC (Bld) [Ratio]0.0 /100 WBCNormalCUniversity Hospitals TriPoint Medical Center on above:Order Comment: Specimen Type: BLOOD SPECIMEN Ordering Facility: [facility] Address: [address] [place], [place] [address]Performed By: #### 26038-6 #### [facility] CLIA [id number] [address] [place] [address] 06551Aqncpzuq mean volume (Bld) [Entitic vol]9.8 fLNormal9.0-12.7 [facility] on above:Order Comment: Specimen Type: BLOOD SPECIMEN Ordering Facility: [facility] Address: [address] [place], [place] [address]Performed By: #### 63379-5 #### [facility] CLIA [id number] [address] [place] [address] 46893Yftdkidns (Bld) [#/Vol]204 10*3/uVUtrtwg639-423FiofhdvcjBethesda North Hospital on above:Order Comment: Specimen Type: BLOOD SPECIMEN Ordering Facility: [facility] Address: [address] [place], [place] [address]Performed By: #### 72711-0 #### [facility] CLIA [id number] [address] [place] [address] 33441ABO (Bld) [#/Vol]3.85 10*6/uLLow4.20-6.00[facility] on above:Order Comment: Specimen Type: BLOOD SPECIMEN Ordering Facility: [facility] Address: [address] [place], [place] [address]Performed By: #### 52032-5 #### [facility] CLIA [id number] [address] [place] [address] 56664VPH (Bld) [#/Vol]6.99 10*3/uLNormal3.70-11.00[facility] on above:Order Comment: Specimen Type: BLOOD SPECIMEN Ordering Facility: [facility] Address: [address] [place], [place] [address]Performed By: #### 29543-8 #### [facility] CLIA [id number] [address] [place] [address] 12745Dapgcphonojrf metabolic 2000 panelon 68-42-0938Piamhni [Mass/Vol]4.1 g/dLNormal3.9-4.9CUniversity Hospitals TriPoint Medical Center on above:Order Comment: Specimen Type: BLOOD SPECIMEN Ordering Facility: [facility] Address: [address] [place], [place] [address]Performed By: #### 2857-1 #### [facility] CLIA [id number] [address] [place] [address] [place] AMERICAALP [Catalytic activity/Vol]84 U/L Oaonqt84-858QqwmfgwdaBethesda North Hospital on above:Order Comment: Specimen Type: BLOOD SPECIMEN Ordering Facility: [facility] Address: [address] [place], [place] [address]Performed By: #### 2857-1 #### [facility] CLIA [id number] [address] [place] [address] [place] AMERICAALT [Catalytic activity/Vol]18 U/L Ufbjny86-47RjxpjiranBethesda North Hospital on above:Order Comment: Specimen Type: BLOOD SPECIMEN Ordering Facility: [facility] Address: [address] [place], [place] [address]Performed By: #### 2857-1 #### [facility] CLIA [id number] [address] [place] [address] [place] AMERICAAnion gap [Moles/Vol]12 mmol/LNormal 8-15[facility] on above:Order Comment: Specimen Type: BLOOD SPECIMEN Ordering Facility: [facility] Address: [address] [place], [place] [address]Performed By: #### 2857-1 #### [facility] CLIA [id number] [address] [place] [address] [place] AMERICAAST [Catalytic activity/Vol]18 U/L Svatox40-53NodqrreacBethesda North Hospital on above:Order Comment: Specimen Type: BLOOD SPECIMEN Ordering Facility: [facility] Address: [address] [place], [place] [address]Performed By: #### 2857-1 #### [facility] CLIA [id number] [address] [place] [address] [place] AMERICABilirubin [Mass/Vol]0.5 mg/dLNormal 0.2-1.3CUniversity Hospitals TriPoint Medical Center on above:Order Comment: Specimen Type: BLOOD SPECIMEN Ordering Facility: [facility] Address: [address] [place], [place] [address]Performed By: #### 2857-1 #### [facility] CLIA [id number] [address] [place] [address] [place] AMERICACalcium [Mass/Vol]10.1 mg/dLNormal 8.5-10.2CUniversity Hospitals TriPoint [facility] Center on above:Order Comment: Specimen Type: BLOOD SPECIMEN Order[facility] Facility: [facility] Address: [address] [place], [place] [address]Performed By: #### 2857-1 #### [facility] CLIA [id number] [address] [place] [address] [place] AMERICAChloride [Moles/Vol]101 mmol/LNormal 98-107[facility] on above:Order Comment: Specimen Type: BLOOD SPECIMEN Ordering Facility: [facility] Address: [address] [place], [place] [address]Performed By: #### 2857-1 #### [facility] CLIA [id number] [address] [place] [address] [place] AMERICACO2 [Moles/Vol]24 mmol/VNlsxmn83-60 [facility] on above:Order Comment: Specimen Type: BLOOD SPECIMEN Ordering Facility: [facility] Address: [address] [place], [place] [address]Performed By: #### 2857-1 #### [facility] CLIA [id number] [address] [place] [address] [place] AMERICACreatinine [Mass/Vol]0.88 mg/dL Normal0.73-1.22[facility] on above:Order Comment: Specimen Type: BLOOD SPECIMEN Ordering Facility: [facility] Address: [address] [place], [place] [address]Performed By: #### 2857-1 #### [facility] CLIA [id number] [address] [place] [address] [place] AMERICACreatinine and Glomerular filtration rate.predicted panel (S/P/Bld)88 mL/min/1.73m???Normal>=60[facility] on above:Order Comment: Specimen Type: BLOOD SPECIMEN Ordering Facility: [facility] Address: [address] [place], [place] [address]Result Comment: Estimated Glomerular Filtration Rate (eGFR) is [...] reflect actual GFR.Performed By: #### 2857-1 #### [facility] CLIA [id number] [address] [place] [address] [place] AMERICAGlucose [Mass/Vol]123 mg/gAIzkm54-48 [facility] on above:Order Comment: Specimen Type: BLOOD SPECIMEN Ordering Facility: [facility] Address: [address] [place], [place] [address]Result Comment: The [place] [employer] (ADA) provides guidance for cutoff [...] Standards of Medical Care in Diabetes 2016, [place] [employer]. Diabetes Care. 2016.39(Suppl 1).Performed By: #### 2857-1 #### [facility] CLIA [id number] [address] [place] [address] [place] AMERICAPotassium [Moles/Vol]4.6 mmol/L Normal3.7-5.1CUniversity Hospitals TriPoint Medical Center on above:Order Comment: Specimen Type: BLOOD SPECIMEN Order[facility] Facility: [facility] Address: [address] [place], [place] [address]Performed By: #### 2857-1 #### [facility] CLIA [id number] [address] [place] [address] [place] AMERICAProtein [Mass/Vol]6.5 g/dLNormal 6.3-8.0[facility] on above:Order Comment: Specimen Type: BLOOD SPECIMEN Ordering Facility: [facility] Address: [address] [place], [place] [address]Performed By: #### 2857-1 #### [facility] CLIA [id number] [address] [place] [address] [place] AMERICASodium [Moles/Vol]137 mmol/LNormal 136-144[facility] on above:Order Comment: Specimen Type: BLOOD SPECIMEN Order[facility] Facility: [facility] Address: [address] [place], [place] [address]Performed By: #### 2857-1 #### [facility] CLIA [id number] [address] [place] [address] [place] AMERICAUrea nitrogen [Mass/Vol]16 mg/dL Normal9-24[facility] on above:Order Comment: Specimen Type: BLOOD SPECIMEN Order[facility] Facility: [facility] Address: [address] [place], [place] [address]Performed By: #### 2857-1 #### [facility] CLIA [id number] [address] [place] [address] [place] AMERICAPSA SerPl-mCncon 98-64-6591Hbodmifg specific Ag [Mass/Vol]0.22 ng/mLNormal<2.60[facility] on above:Order Comment: Specimen Type: BLOOD SPECIMEN Ordering Facility[facility] Address: [address] [place] [place], [place] [address]Vhkwhd Comment: Total PSA test methodology used is the Electrochemiluminescence Immunoassay by [employer]. Total PSA values by differing methodologies cannot be interchanged. Performed By: #### 94568-6 #### [facility] CLIA [id number] [address] [place] [address] 44503Upfmqbkkqp Visit Summaryon 84-57-2666Dugabqajhm Visit Summary Ambulatory Visit Summary PABLO FELIX [...] mg Tab) ipratropium nasal (ipratropium Nasal 0.06% [place]) metformin (metformin 1000 mg oral tablet) metoprolol [...] Anthony SCRUGGS MD Where: [facility] [address] [facility] [place] [address]- You Need to Schedule the Following Appointments Follow Up with Anthony SCRUGGS MD, URL When: Comments: 6 mos w/ PSA and Lupron Where: [facility] [address], [facility] [place] [address] [phone] Medications What How Much When Instructions Unchanged [...] concerns Unchanged ipratropium nasal (ipratropium Nasal 0.06% [place]) Contact prescribing physician if questions or concerns [...] prostate cancer (more content not included)...[facility]edoU[facility] Office/Clinic Noteon 21-48-5911Yqrdetg Office/Clinic NoteUrology Office/Clinic Note Chief Complaint 6 [...] [facility] [address] , [place] [address] [phone] Additional Instructions: 6 mos w/ PSA and [...] 1 tab(s), Oral, Daily ipratropium Nasal 0.06% [place] metformin 1000 mg oral tablet, Oral, BID [...] virus vacc (more content not included)...[facility] ToledoComment on above:Result Comment: Electronically Signed By: SCRUGGS Anthony JAMES\.br\Date and Time Signed: 10/07/24 10:00 EDT\.br\Electronically Co- Signed By: Jeanine Crandall\.br\Date and Time Co-Signed: 10/07/24 09:59 EDTCNOVSPon 94-90-8213FFPKYGRmudi ([place]) Office ([place]) JERICAPABLO An ([id number]) 1945 M Date Time Provider Department 08/08/24 9:30 AM CHRISTO HOWARD During your visit today, we recorded the following information about you: Temperature Pulse Respiration Blood pressure 97.9 degrees 57/minute 16/minute 149/56 Weight Height 95 kg 1.676 m Christo Howard APRN.MANAGER CLIENT 08/08/2024 12:09 PM Signed PATIENT NAME: Pablo Felix DATE: 08/08/2024 PRIMARY CARE PHYSICIAN: Dr. Jamar Fall OTHER PHYSICIANS: Dr. Anthony Scruggs, Dr. Khan, [facility] Cardiology Portions of this encounter note [...] mg 24 hr tablet Take by mouth. 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 Left base margin positive for neoplasm. Seminal vesicles with no diagnostic abnormality. 2 resected lymph nodes negative for neoplasm. LABS: Hemoglobin (g/dL) Date Value 08/01/2024 12.2 05/08/2018 12.8 Hematoc (more content not included)...NormalClinton Memorial HospitalBasophils Auto (Bld) [#/Vol]on 76-97-8088Vjqztofqe (Bld) [#/Vol]Automated basophil count <0.11[facility] CenterBasophils/100 WBC Auto (Bld)on 08-01-2024 Basophils/100 WBC (Bld)Automated basophil %[facility] Blood manual differential comment interpretation narrativeon 06-89-2726Mavjlf differential comment [place] (Bld) [Interp]Blood manual differential comment interpretation narrativeSt. Mary'S Medical CenterCB W Auto Differential panel (Bld)on 54-65-1898Nzhpagduy (Bld) [#/Vol]0.03 10*3/uLNICleveland Clinic Mercy Hospital Basophils/100 WBC (Bld)0.5 %[facility], IncDifferential cell count method Nom (Bld)AutoCleveland ClinicEosinophils (Bld) [#/Vol]0.5 10*3/uLHighNINFSelect Medical [facility], IncEosinophils/100 WBC (Bld)8.5 %[facility], IncErythrocyte distribution width (RBC) [Ratio]12.7 %11.5 - 15.0 %[facility], IncHematocrit (Bld) [Volume fraction]35.7 %Low39.0 - 51.0 %[facility], IncHemoglobin (Bld) [Mass/Vol]12.2 g/dLLow13.0 - 17.0 g/dLSelect Medical Specialty Hospital - [facility], IncImmature granulocytes (Bld) [#/Vol]0.04 10*3/uLNINFSelect Medical Specialty Hospital [facility], IncImmature granulocytes/100 WBC (Bld)0.7 %[facility], IncInterpretation and review of laboratory resultsAbnormalCCherrington Hospital Lymphocytes (Bld) [#/Vol]1.55 10*3/uLSelect Medical Specialty Hospital - [facility], IncLymphocytes/100 WBC (Bld) 26.5 %[facility] CenterH (RBC) [Entitic mass]32.4 pg26.0 - 34.0 pgClevelNorthland Medical CenterHC (RBC) [Mass/Vol]34.2 g/dL30.5 - 36.0 g/dLSouthview Medical CenterV (RBC) [Entitic vol]94.9 fL80.0 - 100.0 fLCCherrington HospitalMonocytes (Bld) [#/Vol]0.55 10*3/uLNINFSelect Medical Specialty [facility], IncMonocytes/100 WBC (Bld)9.4 %[facility] Neutrophils (Bld) [#/Vol]3.19 10*3/Marymount HospitalNeutrophils/100 WBC (Bld) 54.4 %[facility], IncNucleated RBC (Bld) [#/Vol]NINFCleveland Olivia Hospital And ClinicsNucleated RBC/100 WBC (Bld) [Ratio]0 %/100 WBCSelect Medical Specialty Hospital - [facility], IncPlatelet mean volume (Bld) [Entitic vol]9.4 fL9.0 - 12.7 fLCCherrington HospitalPlatelets (Bld) [#/Vol]177 10*3/uLSelect Medical Specialty Hospital - [facility], IncRBC (Bld) [#/Vol]3.76 10*6/uLLow4.20 - 6.00 m/[facility] HospitalWBC (Bld) [#/Vol]5.86 10*3/uLSouthern Ohio Medical Center ClinicBasophils (Bld) [#/Vol]0.03 10*3/uLNormal<0.11CUniversity Hospitals [facility] on above: Order Comment: Specimen Type: BLOOD SPECIMEN Ordering Facility: [facility] Address: [address] [place], [place] [address]Performed By: #### [id number] #### [facility] CLIA [id number] [address] [place] [address] [place] AMERICABasophils/100 WBC (Bld)0.5 %Normal [facility] on above:Order Comment: Specimen Type: BLOOD SPECIMEN Ordering Facility: [facility] Address: [address] [place], [place] [address]Performed By: #### 2857-1 #### [facility] CLIA [id number] [address] [place] [address] [place] OF AMERICADifferential cell count method Nom (Bld)AutoNormalCUniversity Hospitals [facility] on above:Order Comment: Specimen Type: BLOOD SPECIMEN Ordering Facility: [facility] Address: [address] [place], [place] [address]Performed By: #### 2857-1 #### [facility] CLIA [id number] [address] [place] [address] [place] AMERICAEosinophils (Bld) [#/Vol]0.50 10*3/uLHigh<0.46[facility] on above:Order Comment: Specimen Type: BLOOD SPECIMEN Ordering Facility: [facility] Address: [address] [place], [place] [address]Performed By: #### 2857-1 #### [facility] CLIA [id number] [address] [place] [address] [place] AMERICAEosinophils/100 WBC (Bld)8.5 %Normal [facility] on above:Order Comment: Specimen Type: BLOOD SPECIMEN Ordering Facility: [facility] Address: [address] [place], [place] [address]Performed By: #### 2857-1 #### [facility] CLIA [id number] [address] [place] [address] [place] AMERICAErythrocyte distribution width (RBC) [Ratio]12.7 %Juhpmm06.5-15.0[facility] on above:Order Comment: Specimen Type: BLOOD SPECIMEN Ordering Facility: [facility] Address: [address] [place], [place] [address]Performed By: #### 2857-1 #### [facility] CLIA [id number] [address] [place] [address] [place] AMERICAHematocrit (Bld) [Volume fraction] 35.7 %Low39.0-51.0[facility] on above:Order Comment: Specimen Type: BLOOD SPECIMEN Ordering Facility: [facility] Address: [address] [place], [place] [address]Performed By: #### 2857-1 #### [facility] CLIA [id number] [address] [place] [address] [place] AMERICAHemoglobin (Bld) [Mass/Vol]12.2 g/dL Low13.0-17.0[facility] on above:Order Comment: Specimen Type: BLOOD SPECIMEN Ordering Facility: [facility] Address: [address] [place], [place] [address]Performed By: #### 2857-1 #### [facility] CLIA [id number] [address] [place] [address] [place] AMERICAImmature granulocytes (Bld) [#/Vol] 0.04 10*3/uLNormal<0.10[facility] on above:Order Comment: Specimen Type: BLOOD SPECIMEN Ordering Facility: [facility] Address: [address] [place], [place] [address]Performed By: #### 2857-1 #### [facility] CLIA [id number] [address] [place] [address] [place] AMERICAImmature granulocytes/100 WBC (Bld) 0.7 %NormalBet[facility]da North Hospital on above:Order Comment: Specimen Type: BLOOD SPECIMEN Ordering Facility: [facility] Address: [address] [place], [place] [address]Performed By: #### 2857-1 #### [facility] CLIA [id number] [address] [place] [address] [place] AMERICALymphocytes (Bld) [#/Vol]1.55 10*3/uLNormal1.00-4.00[facility] on above:Order Comment: Specimen Type: BLOOD SPECIMEN Ordering Facility: [facility] Address: [address] [place], [place] [address]Performed By: #### 2857-1 #### [facility] CLIA [id number] [address] [place] [address] [place] AMERICALymphocytes/100 WBC (Bld)26.5 % NormalBet[facility] on above:Order Comment: Specimen Type: BLOOD SPECIMEN Ordering Facility: [facility] Address: [address] [place], [place] [address]Performed By: #### 2857-1 #### [facility] CLIA [id number] [address] [place] [address] (RBC) [Entitic mass]32.4 pg Kvmasv21.0-34.0[facility] on above:Order Comment: Specimen Type: BLOOD SPECIMEN Ordering Facility: [facility] Address: [address] [place], [place] [address]Performed By: #### 2857-1 #### [facility] CLIA [id number] [address] [place] [address] (RBC) [Mass/Vol]34.2 g/dLNormal 30.5-36.0[facility] on above:Order Comment: Specimen Type: BLOOD SPECIMEN Ordering Facility: [facility] Address: [address] [place], [place] [address]Performed By: #### 2857-1 #### [facility] CLIA [id number] [address] [place], [place] [address] [place] AMERICAMCV (RBC) [Entitic vol]94.9 fLNormal 80.0-100.0[facility] on above:Order Comment: Specimen Type: BLOOD SPECIMEN Ordering Facility: [facility] Address: [address] [place], [place] [address]Performed By: #### 2857-1 #### [facility] CLIA [id number] [address] [place] [address] [place] AMERICAMonocytes (Bld) [#/Vol]0.55 10*3/uL Normal<0.87[facility] on above:Order Comment: Specimen Type: BLOOD SPECIMEN Ordering Facility: [facility] Address: [address] [place], [place] [address]Performed By: #### 2857-1 #### [facility] CLIA [id number] [address] [place] [address] [place] AMERICAMonocytes/100 WBC (Bld)9.4 %Normal [facility] on above:Order Comment: Specimen Type: BLOOD SPECIMEN Ordering Facility: [facility] Address: [address] [place], [place] [address]Performed By: #### 2857-1 #### [facility] CLIA [id number] [address] [place] [address] [place] AMERICANeutrophils (Bld) [#/Vol]3.19 10*3/uLNormal1.45-7.50[facility] on above:Order Comment: Specimen Type: BLOOD SPECIMEN Ordering Facility: [facility] Address: [address] [place], [place] [address]Performed By: #### 2857-1 #### [facility] CLIA [id number] [address] [place] [address] [place] AMERICANeutrophils/100 WBC (Bld)54.4 % NormalBet[facility] Hospital on above:Order Comment: Specimen Type: BLOOD SPECIMEN Ordering Facility: [facility] Address: [address] [place], [place] [address]Performed By: #### 2857-1 #### [facility] CLIA [id number] [address] [place] [address] [place] AMERICANucleated RBC (Bld) [#/Vol]10*3/uL Normal<0.01[facility] on above:Order Comment: Specimen Type: BLOOD SPECIMEN Ordering Facility: [facility] Address: [address] [place], [place] [address]Performed By: #### 2857-1 #### [facility] CLIA [id number] [address] [place] [address] [place] AMERICANucleated RBC/100 WBC (Bld) [Ratio] 0.0 /100 WBCNormalCUniversity Hospitals [facility]Point [facility] on above:Order Comment: Specimen Type: BLOOD SPECIMEN Ordering Facility: [facility] Address: [address] [place], [place] [address]Performed By: #### 2857-1 #### [facility] CLIA [id number] [address] [place] [address] [place] AMERICAPlatelet mean volume (Bld) [Entitic vol]9.4 fLNormal9.0-12.7CUniversity Hospitals TriPoint Medical Center on above:Order Comment: Specimen Type: BLOOD SPECIMEN Ordering Facility: [facility] Address: [address] [place], [place] [address]Performed By: #### 2857-1 #### [facility] CLIA [id number] [address] [place] [address] [place] AMERICAPlatelets (Bld) [#/Vol]177 10*3/uL Rcfsqi627-894SbptewmhuBethesda North Hospital on above:Order Comment: Specimen Type: BLOOD SPECIMEN Ordering Facility: [facility] Address: [address] [place], [place] [address]Performed By: #### 2857-1 #### [facility] CLIA [id number] [address] [place] [address] [place] AMERICARBC (Bld) [#/Vol]3.76 10*6/uLLow 4.20-6.00[facility] on above:Order Comment: Specimen Type: BLOOD SPECIMEN Ordering Facility: [facility] Address: [address] [place], [place] [address]Performed By: #### 2857-1 #### [facility] CLIA [id number] [address] [place] [address] [place] AMERICAWBC (Bld) [#/Vol]5.86 10*3/uLNormal 3.70-11.00[facility] on above:Order Comment: Specimen Type: BLOOD SPECIMEN Ordering Facility: [facility] Address: [address] [place], [place] [address]Performed By: #### 2857-1 #### [facility] CLIA [id number] [address] [place] [address] OF [facility] MEDICAL CENTERComprehensive metabolic 2000 panel Ordered By: Liza Lilly on 39-89-6855Ztonqnd [Mass/Vol]4.2 g/dL3.9 - 4.9 g/dL [facility]ALP [Catalytic activity/Vol]75 U/L38 - 113 U/LCleveland Clinic ALT [Catalytic activity/Vol]17 U/L10 - 54 U/LCleveland ClinicAnion gap [Moles/Vol]11 mmol/L8 - 15 mmol/LCleveland ClinicAST [Catalytic activity/Vol]17 U/L14 - 40 U/LCleveland ClinicBilirubin [Mass/Vol]0.6 mg/dL0.2 - 1.3 mg/dL [facility], IncCalcium [Mass/Vol]10.3 mg/dLHigh8.5 - 10.2 mg/dLSelect Medical Specialty [facility], Inc Chloride [Moles/Vol]100 mmol/L98 - 107 mmol/LCleveland ClinicCO2 [Moles/Vol]26 mmol/L22 - 30 mmol/LCleveland ClinicCreatinine [Mass/Vol]0.81 mg/dL0.73 - 1.22 mg/dLSelect Medical Specialty Hospital [facility], IncGFR/1.73 sq M.predicted among non-blacks MDRD (S/P/Bld) [Vol [...] eGFRmay not accurately reflect actual GFR.Glucose [Mass/Vol]119 mg/uCAvgb62 - 99 mg/dLAvita Health System on above:The [place] Diabetes Association (ADA) provides guidance for cutoff [...] Standards of Medical Care in Diabetes 2016, [place] [employer]. Diabetes Care. 2016.39(Suppl 1). Interpretation and review of laboratory resultsAbnormalCleveland ClinicPotassium [Moles/Vol]4.8 mmol/L3.7 - 5.1 mmol/LCselect medical specialty hospital - [facility] ClinicProtein [Mass/Vol]6.3 g/dL 6.3 - 8.0 g/dLCleveland Clinic Lutheran Hospitalodium [Moles/Vol]137 mmol/L136 - 144 mmol/L [facility], IncUrea nitrogen [Mass/Vol]14 mg/dL9 - 24 mg/dLKing'S Daughters Medical Center OhioComprehensive metabolic 2000 panelon 51-82-1176Ckcykda [Mass/Vol]4.2 g/dLNormal3.9-4.9CUniversity Hospitals TriPoint Medical Center on above:Order Comment: Specimen Type: BLOOD SPECIMEN Ordering Facility: [facility] Address: [address] [place], [place] [address]Performed By: #### 2857-1 #### [facility] CLIA [id number] [address] [place] [address] [place] AMERICAALP [Catalytic activity/Vol]75 U/L Soefpf62-382XfolwdwsaBethesda North Hospital on above:Order Comment: Specimen Type: BLOOD SPECIMEN Ordering Facility: [facility] Address: [address] [place], [place] [address]Performed By: #### 2857-1 #### [facility] CLIA [id number] [address] [place], [place] [address] [place] AMERICAALT [Catalytic activity/Vol]17 U/L Boxbjl85-00BtvszfeuuBethesda North Hospital on above:Order Comment: Specimen Type: BLOOD SPECIMEN Ordering Facility: [facility] Address: [address] [place], [place] [address]Performed By: #### 2857-1 #### [facility] CLIA [id number] [address] [place] [address] [place] AMERICAAnion gap [Moles/Vol]11 mmol/LNormal 8-15[facility] on above:Order Comment: Specimen Type: BLOOD SPECIMEN Ordering Facility: [facility] Address: [address] [place], [place] [address]Performed By: #### 2857-1 #### [facility] CLIA [id number] [address] [place] [address] [place] AMERICAAST [Catalytic activity/Vol]17 U/L Zfzdft99-28YrdckujfkBethesda North Hospital on above:Order Comment: Specimen Type: BLOOD SPECIMEN Ordering Facility: [facility] Address: [address] [place], [place] [address]Performed By: #### 2857-1 #### [facility] CLIA [id number] [address] [place] [address] [place] AMERICABilirubin [Mass/Vol]0.6 mg/dLNormal 0.2-1.3CUniversity Hospitals TriPoint Medical Center on above:Order Comment: Specimen Type: BLOOD SPECIMEN Ordering Facility: [facility] Address: [address] [place], [place] [address]Performed By: #### 2857-1 #### [facility] CLIA [id number] [address] [place] [address] [place] AMERICACalcium [Mass/Vol]10.3 mg/dLHigh 8.5-10.2CUniversity Hospitals TriPoint [facility] Center on above:Order Comment: Specimen Type: BLOOD SPECIMEN Ordering Facility: [facility] Address: [address] [place], [place] [address]Performed By: #### 2857-1 #### [facility] CLIA [id number] [address] [place] [address] [place] AMERICAChloride [Moles/Vol]100 mmol/LNormal 98-107[facility] on above:Order Comment: Specimen Type: BLOOD SPECIMEN Ordering Facility: [facility] Address: [address] [place], [place] [address]Performed By: #### 2857-1 #### [facility] CLIA [id number] [address] [place] [address] [place] AMERICACO2 [Moles/Vol]26 mmol/PZnbcjs84-73 [facility] on above:Order Comment: Specimen Type: BLOOD SPECIMEN Ordering Facility: [facility] Address: [address] [place], [place] [address]Performed By: #### 2857-1 #### [facility] CLIA [id number] [address] [place] [address] [place] AMERICACreatinine [Mass/Vol]0.81 mg/dL Normal0.73-1.22[facility] on above:Order Comment: Specimen Type: BLOOD SPECIMEN Ordering Facility: [facility] Address: [address] [place], [place] [address]Performed By: #### 2857-1 #### [facility] CLIA [id number] [address] [place] [address] [place] AMERICACreatinine and Glomerular filtration rate.predicted panel (S/P/Bld)90 mL/min/1.73m???Normal>=60[facility] on above:Order Comment: Specimen Type: BLOOD SPECIMEN Ordering Facility: [facility] Address: [address] [place], [place] [address]Result Comment: Estimated Glomerular Filtration Rate (eGFR) is [...] reflect actual GFR.Performed By: #### 2857-1 #### [facility] CLIA [id number] [address] [place] [address] [place] AMERICAGlucose [Mass/Vol]119 mg/yARevo08-62 [facility] on above:Order Comment: Specimen Type: BLOOD SPECIMEN Ordering Facility: [facility] Address: [address] [place], [place] [address]Result Comment: The [place] Diabetes Association (ADA) provides guidance for cutoff [...] Standards of Medical Care in Diabetes 2016, [place] [employer]. Diabetes Care. 2016.39(Suppl 1).Performed By: #### 2857-1 #### [facility] CLIA [id number] [address] [place] [address] [place] AMERICAPotassium [Moles/Vol]4.8 mmol/L Normal3.7-5.1CUniversity Hospitals TriPoint Medical Center on above:Order Comment: Specimen Type: BLOOD SPECIMEN Ordering Facility: [facility] Address: [address] [place], [place] [address]Performed By: #### 2857-1 #### [facility] CLIA [id number] [address] [place] [address] [place] AMERICAProtein [Mass/Vol]6.3 g/dLNormal 6.3-8.0[facility] on above:Order Comment: Specimen Type: BLOOD SPECIMEN Ordering Facility: [facility] Address: [address] [place], [place] [address]Performed By: #### 2857-1 #### [facility] CLIA [id number] [address] [place] [address] [place] AMERICASodium [Moles/Vol]137 mmol/LNormal 136-144[facility] on above:Order Comment: Specimen Type: BLOOD SPECIMEN Ordering Facility: [facility] Address: [address] [place], [place] [address]Performed By: #### 2857-1 #### [facility] CLIA [id number] [address] [place] [address] [place] AMERICAUrea nitrogen [Mass/Vol]14 mg/dL Normal9-24[facility] on above:Order Comment: Specimen Type: BLOOD SPECIMEN [facility] Facility: [facility] Address: [address] [place], [place] [address]Performed By: #### 2857-1 #### [facility] CLIA [id number] [address] [place] [address] [place] AMERICAEosinophils/100 WBC Auto (Bld)on 16-51-2994Tajvjbxycck/100 WBC (Bld)Automated eosinophil %[facility]. [facility]S Medical CenterErythrocyte distribution width Auto (RBC) [Ratio]on 08-01-2024 Erythrocyte distribution width (RBC) [Ratio]Erythrocyte distribution width [Ratio] by Automated count11.5-15.0[facility]. [facility] Medical CenterHematocrit Auto (Bld) [Volume fraction]on 91-64-2094Ohgmoabfrf (Bld) [Volume fraction] Hematocrit [Volume Fraction] of Blood by Automated yptzsFyd03.0-51.0[facility] Medical CenterHemoglobin [Mass/volume] in Bloodon 98-93-9656Vuopnrashq (Bld) [Mass/Vol]Hemoglobin [Mass/volume] in CtkmsTbz14.0-17.0[facility] CenterLaboratory - Chemistry and Chemistry - challengeon 08-01-2024 Albumin [Mass/Vol]4.2 g/dL3.9-4.9[facility] CenterALP [Catalytic activity/Vol]75 U/S39-542OtileyysqSt. Mary'S Medical CenterALT [Catalytic activity/Vol]17 U/K75-16CrbnzswtySt. Mary'S Medical CenterAST [Catalytic activity/Vol]17 U/M14-31ThjyrwgflSt. Mary'S Medical CenterBilirubin [Mass/Vol]0.6 mg/dL0.2-1.3FMemorial Health System Marietta Memorial HospitalCalcium [Mass/Vol]10.3 mg/dLHigh 8.5-10.2FMemorial Health System Marietta Memorial HospitalChloride [Moles/Vol]100 mmol/L98-107 [facility] Medical CenterCO2 [Moles/Vol]26 mmol/A48-89YlqrvnumpSt. Mary'S Medical CenterCreatinine [Mass/Vol]0.81 mg/dL0.73-1.22[facility] CenterGlucose [Mass/Vol]119 mg/kLKzzn53-53RpvxsrtepSt. Mary'S Medical CenterComment on above:The [place] Diabetes Association (ADA) provides guidance for cutoff [...] diabetes.Reference: Standardsof Medical Care in Diabetes 2016, [place] [employer] Association. Diabetes Care. 2016.39(Suppl 1).Potassium [Moles/Vol]4.8 mmol/L 3.7-5.1FUniversity Hospitals Portage Medical Centerodium [Moles/Vol]137 mmol/I283-802 [facility] Medical CenterUrea nitrogen [Mass/Vol]14 mg/dL9-24St. [facility] CenterLaboratory - Hematology and Cell countson 08-01-2024 Eosinophils (Bld) [#/Vol]0.50 10*3/uLHigh<0.46[facility] Immature granulocytes (Bld) [#/Vol]0.04 10*3/uL<0.10St. [facility] Medical CenterImmature granulocytes/100 WBC (Bld)0.7 %[facility] Leukocytes [#/volume] corrected for nucleated erythrocytes in Blood by Automated counon 98-95-5848WGC corrected for nucl RBC Auto (Bld) [#/Vol]Leukocytes [#/volume] corrected for nucleated erythrocytes in Blood by Automated coun 3.70-11.00St. [facility] Medical CenterLymphocytes Auto (Bld) [#/Vol]on 33-20-3363Qzqhtjcgvzd (Bld) [#/Vol]Lymphocytes [#/volume] in Blood by Automated count1.00-4.00St. [facility] Medical CenterLymphocytes/100 WBC Auto (Bld)on 81-73-6041Hopogqrvmpu/100 WBC (Bld)Lymphocytes/100 leukocytes in Blood by Automated countDayton Osteopathic HospitalH Auto (RBC) [Entitic mass]on 87-96-6288HSX (RBC) [Entitic mass]MCH [Entitic mass] by Automated count26.0-34.0 [facility] Medical CenterMCHC Auto (RBC) [Mass/Vol]on 22-16-3957NPEJ (RBC) [Mass/Vol]MCHC [Mass/volume] by Automated count30.5-36.0[facility] Medical CenterMCV Auto (RBC) [Entitic vol]on 37-68-0601MHU (RBC) [Entitic vol] MCV [Entitic volume] by Automated count80.0-100.0St. [facility] Medical CenterMonocytes Auto (Bld) [#/Vol]on 85-90-7843Gicdqlczp (Bld) [#/Vol]Automated blood monocyte count<0.87St. [facility] Medical CenterMonocytes/100 WBC Auto (Bld)on 05-53-1501Ddwhodptv/100 WBC (Bld)Automated monocyte %[facility] Medical CenterNeutrophils Auto (Bld) [#/Vol]on 20-29-6157Ddhzamjuiau (Bld) [#/Vol]Neutrophils [#/volume] in Blood by Automated count1.45-7.50St. [facility] Medical CenterNeutrophils/100 WBC Auto (Bld)on 08-01-2024 Neutrophils/100 WBC (Bld)Automated neutrophil %[facility] No Panel Informationon 07-57-1867Awruhkxyo GFR (CKD-EPI)90 mL/min/1.73m???>=60 [facility] Medical CenterComment on above:Estimated Glomerular Filtration Rate (eGFR) is calculated using the 2020 CKD-EPI creatinine equation. This equation utilizes serum creatinine, sex, and age as parameters. The creatinine assay has traceable calibration to isotope dilution-mass spectrometry. Refer to KDIGO guidelines for clinical interpretation. In patients with unstable renal function, e.g. those with acute kidney injury, the eGFRmay not accurately reflect actual GFR.Prostate Specific Antigen0.19 ng/mL<2.60 [facility] Medical CenterComment on above:Total PSA test methodology used is the Electrochemiluminescence Immunoassay by [employer]. Total PSA values by differing methodologies cannot be interchanged.Nucleated RBC Auto (Bld) [#/Vol]on 82-40-0179Evdnlixjy RBC (Bld) [#/Vol]Nucleated erythrocytes [#/volume] in Blood by Automated count<0.01[facility] Nucleated erythrocytes [Presence] in Blood by Automated counton 08-01-2024 Nucleated RBC Auto Ql (Bld)Nucleated erythrocytes [Presence] in Blood by Automated countSt. Mary'S Medical CenterPROSTATE-SPECIFIC ANTIGEN DIAGNOSTICon 84-99-7592Wjefmpds specific Ag [Mass/Vol]0.19 ng/mLNINF - 2.60 ng/mLCselect medical specialty hospital - cincinnati ClinicComment on above:Total PSA test methodology used is the Electrochemiluminescence Immunoassay by [employer]. Total PSA values by differing methodologies cannot be interchanged.PSA SerPl-mCncon 08-01-2024 Prostate specific Ag [Mass/Vol]0.19 ng/mLNormal<2.60[facility] Comment on above:Order Comment: Specimen Type: BLOOD SPECIMEN [facility]ing Facility[facility] Address: [address] [place], [place] [address]Result Comment: Total PSA test methodology used is the Electrochemiluminescence Immunoassay by [employer]. Total PSA values by differing methodologies cannot be interchanged. Performed By: #### 10837-6 #### [facility] CLIA [id number] [address] [place] [address]Zrymvvri mean volume Auto (Bld) [Entitic vol]on 08-01-2024 Platelet mean volume (Bld) [Entitic vol]Platelet mean volume [Entitic volume] in Blood by Automated count9.0-12.7FMemorial Health System Marietta Memorial HospitalPlatelets Auto (Bld) [#/Vol]on 94-19-5495Encvqtpfy (Bld) [#/Vol]Platelets [#/volume] in Blood by Automated ajlqb909-734IojsfupbySt. Mary'S Medical CenterProstate specific Ag [Mass/Vol]on 71-59-5145Dqxaskxfyxedus and review of laboratory resultsNormal [facility] ClinicProtein [Mass/volume] in Serum or Plasmaon 54-02-3874Qktknfu [Mass/Vol]Protein [Mass/volume] in Serum or Plasma6.3-8.0 [facility] Medical CenterRBC Auto (Bld) [#/Vol]on 35-65-5044MNQ (Bld) [#/Vol]Erythrocytes [#/volume] in Blood by Automated countLow4.20-6.00ProMedica Fostoria Community Hospitalerum or plasma anion gap determinationon 61-39-1149Ocywr gap [Moles/Vol]Serum or plasma anion gap determination8-15St. [facility]'S Medical CenterCNPNon 96-83-0942YSBDPvhruxikm (LABSAN) PABLO FELIX ([id number]) 1945 M Date Time Provider Department 07/25/24 [...] Date Reviewed: 02/02/2024 Reviewed by: Lynne Rajan APRN.MANAGER CLIENT - Fully Assessed Reason for Visit: Lab Orders [1688] Primary Visit Diagnosis:Malignant neoplasm of prostate (HCC) [C61] Order(s):COMPLETE BLOOD COUNT AND DIFFERENTIAL [SQCBCDIF] Order #: [id number] FUTURE COMPREHENSIVE METABOLIC PANEL [SQCMP] Order #: [id number] FUTURE PROSTATE-SPECIFIC ANTIGEN DIAGNOSTIC [SQPSA] Order #: [id number] FUTURE Prescriptions as of 10/16/2024 - enzalutamide (XTANDI) 40 mg tablet Take 4 tablets (160 mg) by mouth once daily. - Calcium Citrate-Vitamin D3 200 mg-6.25 mcg (250 unit) tab Take 2 tablets by mouth once daily. - metoprolol succinate ER (TOPROL XL) 25 mg 24 hr tablet Take by mouth. - Ktqxxgrnlmqye-Mqfbdljn-Ygixfe (MULTIVITAMIN 50 PLUS) tab Take 1 tablet [...] 08/06/2014 Encounter Status:Closed by JOSEMANUEL BLANCHARD on 10/16/24[facility] HospitalAmbulatory Visit Summaryon [id number] Visit SummaryAmbulatory Visit Summary PABLO FELIX :1945 [...] mg Tab) ipratropium nasal (ipratropium Nasal 0.06% [place]) metformin (metformin 1000 mg oral tablet) metoprolol [...] Anthony SCRUGGS MD Where: [facility] [address] [place] [address]- You Need to Schedule the Following Appointments Follow Up with Anthony SCRUGGS MD, URL When: Where: [address] [place] [phone]- Medications What How Much When Instructions Unchanged [...] concerns Unchanged ipratropium nasal (ipratropium Nasal 0.06% [place]) Contact prescribing physician if questions or concerns [...] Trouble st (more content not included)...[facility] Office/Clinic Noteon 95-81-2575Zcltjkg Office/Clinic NoteUrology Office/Clinic Note Chief Complaint rising [...] 0.23 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 [place] 9 (5+4), pT2b, N0, Mo. Last Lupron administered 04/2022. Taking Xtandi 160mg qd and Xgeva q3mos. Last seen by [facility] oncology 02/02/24. Plan at that time was [...] Information KAEL JAMES, Anthony Lee, URL [address] [place] [address]- Additional Instructions: 6 mos w/ PSA and [...] Daily hydrochlorothiazide-lisinopril (more content not included)...[facility]edoComment on above:Result Comment: Electronically Signed By: Anthony SCRUGGS MD\.br\Date and Time Signed: 04/19/24 08:47 EDT\.br\Electronically Co-Signed By: Olamide Ureña.br\Date and Time Co-Signed: 04/19/2408:45 EDTBasophils Auto (Bld) [#/Vol]on 26-13-6763Ycfatqwax (Bld) [#/Vol]0.04 10*3/uL <0.11[facility] CenterBasophils/100 WBC Auto (Bld)on 01-25-2024 Basophils/100 WBC (Bld)0.6 %[facility] CenterBlood manual differential comment interpretation narrativeon 53-28-7538Vrfqaj differential comment [place] (Bld) [Interp]AutoSt. Mary'S Medical CenterEosinophils/100 WBC Auto (Bld)on 40-32-5364Rmebrzbfcmh/100 WBC (Bld)5.9 %[facility] CenterErythrocyte distribution width Auto (RBC) [Ratio]on 01-25-2024 Erythrocyte distribution width (RBC) [Ratio]12.7 %11.5-15.0[facility] CenterHematocrit Auto (Bld) [Volume fraction]on 78-15-0357Kirzqkfslk (Bld) [Volume fraction]34.6 %Low39.0-51.0[facility] Hemoglobin [Mass/volume] in Bloodon 56-02-1298Fjkssqyvmi (Bld) [Mass/Vol]11.8 g/dLLow13.0-17.0[facility] CenterLaboratory - Chemistry and Chemistry - challengeon 09-59-4845Xexocke [Mass/Vol]4.0 g/dL3.9-4.9[facility] CenterALP [Catalytic activity/Vol]74 U/T04-711MmmvgtcsdSt. Mary'S Medical CenterALT [Catalytic activity/Vol]18 U/X64-27YedqryxscSt. Mary'S Medical CenterAST [Catalytic activity/Vol]19 U/W27-95BpqcnpxklSt. Mary'S Medical CenterBilirubin [Mass/Vol]0.7 mg/dL0.2-1.3FMemorial Health [facility] Calcium [Mass/Vol]9.9 mg/dL8.5-10.2FMemorial Health System Marietta Memorial HospitalChloride [Moles/Vol]103 mmol/A41-828CdqbftyeySt. Mary'S Medical CenterCO2 [Moles/Vol]25 mmol/Z73-01MfvhhjighSt. Mary'S Medical CenterCreatinine [Mass/Vol]0.79 mg/dL 0.73-1.22[facility] CenterGlucose [Mass/Vol]112 mg/cPFmdq41-11 [facility] CenterComment on above:The [place] Diabetes Association (ADA) provides guidance for cutoff [...] diabetes.Reference: Standardsof Medical Care in Diabetes 2016, [place] [employer] Association. Diabetes Care. 2016.39(Suppl 1). Potassium [Moles/Vol]5.2 mmol/LHigh3.7-5.1FMemorial Health System Marietta Memorial Hospital Sodium [Moles/Vol]137 mmol/I837-316HfhbdrxzvSt. Mary'S Medical CenterUrea nitrogen [Mass/Vol]15 mg/dL9-24[facility] CenterLaboratory - Hematology and Cell countson 78-30-5813Xjfofgsovcf (Bld) [#/Vol]0.40 10*3/uL <0.46St[facility] CenterImmature granulocytes (Bld) [#/Vol]0.07 10*3/uL<0.10[facility] CenterImmature granulocytes/100 WBC (Bld) 1.0 %[facility] Medical CenterLeukocytes [#/volume] corrected for nucleated erythrocytes in Blood by Automated counon 92-79-9789YXX corrected for nucl RBC Auto (Bld) [#/Vol]6.80 k/uL3.70-11.00[facility] Lymphocytes Auto (Bld) [#/Vol]on 34-78-1711Rjdkwbejykg (Bld) [#/Vol]2.16 10*3/uL 1.00-4.00[facility] CenterLymphocytes/100 WBC Auto (Bld)on 26-05-5414Jzljjlfwkss/100 WBC (Bld)31.8 %[facility] HospitalH Auto (RBC) [Entitic mass]on 50-10-7024AWI (RBC) [Entitic mass]32.2 pg26.0-34.0 [facility] Medical CenterMCHC Auto (RBC) [Mass/Vol]on 81-47-7209UVDC (RBC) [Mass/Vol]34.1 g/dL30.5-36.0[facility] CenterMCV Auto (RBC) [Entitic vol]on 27-51-2848ZKH (RBC) [Entitic vol]94.3 fL80.0-100.0 [facility] CenterMonocytes Auto (Bld) [#/Vol]on 01-25-2024 Monocytes (Bld) [#/Vol]0.60 10*3/uL<0.87[facility] Monocytes/100 WBC Auto (Bld)on 98-07-1548Hbxsprxqt/100 WBC (Bld)8.8 %[facility] CenterNeutrophils Auto (Bld) [#/Vol]on 93-35-7298Dztalxrxqrp (Bld) [#/Vol]3.53 10*3/uL1.45-7.50[facility] Neutrophils/100 WBC Auto (Bld)on 34-83-6553Jveamhhbcne/100 WBC (Bld)51.9 % [facility] CenterNo Panel Informationon 22-23-0999Gliisfgde GFR (CKD-EPI)91 mL/min/1.73m???>=60[facility] CenterComment on above:Estimated Glomerular Filtration Rate (eGFR) is calculated using the 2020 CKD-EPI creatinine equation. This equation utilizes serum creatinine, sex, and age as parameters. The creatinine assay has traceable calibration to isotope dilution-mass spectrometry. Refer to KDIGO guidelines for clinical inte rpretation. In patients with unstable renal function, e.g. those with acute kidney injury, the eGFRmay not accurately reflect actual GFR.Prostate Specific Antigen0.15 ng/mL<2.60St[facility] Medical CenterComment on above:Total PSA test methodology used is the Electrochemiluminescence Immunoassay by [employer]. Total PSA values by differing methodologies cannot be interchanged. Nucleated RBC Auto (Bld) [#/Vol]on 04-29-9445Iimrpaasv RBC (Bld) [#/Vol]10*3/uL <0.01[facility] CenterNucleated erythrocytes [Presence] in Blood by Automated counton 37-40-0416Blwcmpdmv RBC Auto Ql (Bld)0.0 /100{WBC} [facility] Medical CenterPlatelet mean volume Auto (Bld) [Entitic vol]on 73-04-0463Exnqqiaf mean volume (Bld) [Entitic vol]10.3 fL9.0-12.7FMemorial Health System Marietta Memorial HospitalPlatelets Auto (Bld) [#/Vol]on 61-90-8311Slfhcdydy (Bld) [#/Vol]184 10*3/vE529-953SrfcpcmlwSt. Mary'S Medical CenterProtein [Mass/volume] in Serum or Plasmaon 58-67-5166Eyqepff [Mass/Vol]6.6 g/dL6.3-8.0[facility] Medical CenterRBC Auto (Bld) [#/Vol]on 73-66-0739WCL (Bld) [#/Vol]3.67 10*6/uLLow4.20-6.00[facility] Community Hospitalerum or plasma anion gap determinationon 33-04-1290Uuyth gap [Moles/Vol]9 mmol/L8-[facility] CenterBasophils Auto (Bld) [#/Vol]on 55-80-7757Pzdbourrx (Bld) [#/Vol] 0.04 10*3/uL<0.11[facility] CenterBasophils/100 WBC Auto (Bld)on 63-08-5506Rexdjejgl/100 WBC (Bld)0.5 %[facility] CenterBlood manual differential comment interpretation narrativeon 15-37-2773Cseaoy differential comment [place] (Bld) [Interp]AutoSt. Mary'S Medical Center Eosinophils/100 WBC Auto (Bld)on 71-28-0746Bpbhgzypakg/100 WBC (Bld)4.3 % [facility] CenterErythrocyte distribution width Auto (RBC) [Ratio]on 92-37-0632Igflrgxhqlz distribution width (RBC) [Ratio]12.8 %11.5-15.0 [facility] Medical CenterHematocrit Auto (Bld) [Volume fraction]on 57-04-0288Olvbgxercc (Bld) [Volume fraction]35.8 %39.0-51.0[facility] Medical CenterHemoglobin [Mass/volume] in Bloodon 43-94-9943Yxsylpjaba (Bld) [Mass/Vol]12.2 g/dL13.0-17.0[facility] CenterLaboratory - Chemistry and Chemistry - challengeon 87-24-4514Zoxstkx [Mass/Vol]4.1 g/dL 3.9-4.9[facility] CenterALP [Catalytic activity/Vol]75 U/L38-113 [facility] CenterALT [Catalytic activity/Vol]16 U/L10-54 [facility] CenterAST [Catalytic activity/Vol]16 U/L14-40 [facility] CenterBilirubin [Mass/Vol]0.7 mg/dL0.2-1.3FMemorial Health System Marietta Memorial HospitalCalcium [Mass/Vol]9.8 mg/dL8.5-10.2FMemorial Health System Marietta Memorial HospitalChloride [Moles/Vol]103 mmol/J23-890NmtdnzcpwSt. Mary'S Medical CenterCO2 [Moles/Vol]24 mmol/N77-64BsvwrfodkSt. Mary'S Medical CenterCreatinine [Mass/Vol]0.88 mg/dL0.73-1.22[facility] CenterGlucose [Mass/Vol] 128 mg/fL02-19BhbmlwvyzSt. Mary'S Medical CenterComment on above:The [place] Diabetes Association (ADA) provides guidance for cutoff [...] diabetes.Reference: Standardsof Medical Care in Diabetes 2016, [place] Diabetes Association. Diabetes Care. 2016.39(Suppl 1). Potassium [Moles/Vol]4.8 mmol/L3.7-5.1FUniversity Hospitals Portage Medical Centerodium [Moles/Vol]140 mmol/G789-242VojkgxgmeSt. Mary'S Medical CenterUrea nitrogen [Mass/Vol]18 mg/dL9-24[facility] CenterLaboratory - Hematology and Cell countson 96-06-9691Qlhqoguaxqs (Bld) [#/Vol]0.35 10*3/uL<0.46[facility] CenterImmature granulocytes (Bld) [#/Vol]0.04 10*3/uL<0.10 [facility] CenterImmature granulocytes/100 WBC (Bld)0.5 % [facility] CenterLeukocytes [#/volume] corrected for nucleated erythrocytes in Blood by Automated counon 92-40-6317QAG corrected for nucl RBC Auto (Bld) [#/Vol]8.19 k/uL3.70-11.00[facility] Lymphocytes Auto (Bld) [#/Vol]on 70-59-9789Inufccbnzvx (Bld) [#/Vol]1.36 10*3/uL 1.00-4.00[facility] CenterLymphocytes/100 WBC Auto (Bld)on 09-60-8612Jqgyafmncwi/100 WBC (Bld)16.6 %[facility] HospitalH Auto (RBC) [Entitic mass]on 85-17-7645TPK (RBC) [Entitic mass]31.3 pg26.0-34.0 [facility] Medical CenterMCHC Auto (RBC) [Mass/Vol]on 74-33-3725QDRY (RBC) [Mass/Vol]34.1 g/dL30.5-36.0[facility] CenterMCV Auto (RBC) [Entitic vol]on 46-49-4728XEE (RBC) [Entitic vol]91.8 fL80.0-100.0 [facility] Medical CenterMonocytes Auto (Bld) [#/Vol]on 10-30-2023 Monocytes (Bld) [#/Vol]0.62 10*3/uL<0.87[facility] Monocytes/100 WBC Auto (Bld)on 24-90-6871Onbzajnco/100 WBC (Bld)7.6 %[facility] Medical CenterNeutrophils Auto (Bld) [#/Vol]on 75-86-2953Qegyxaysyui (Bld) [#/Vol]5.78 10*3/uL1.45-7.50[facility] Neutrophils/100 WBC Auto (Bld)on 65-94-6813Kaedipijvuh/100 WBC (Bld)70.5 % [facility] CenterNo Panel Informationon 95-20-2701Xokiyojnz GFR (CKD-EPI)89 mL/min/1.73m???>=60[facility] CenterComment on above:Estimated Glomerular Filtration Rate (eGFR) is calculated using the 2020 CKD-EPI creatinine equation. This equation utilizes serum creatinine, sex, and age as parameters. The creatinine assay has traceable calibration to isotope dilution-mass spectrometry. Refer to KDIGO guidelines for clinical inte rpretation. In patients with unstable renal function, e.g. those with acute kidney injury, the eGFRmay not accurately reflect actual GFR.Prostate Specific Antigen0.16 ng/mL<2.60St[facility] Medical CenterComment on above:Total PSA test methodology used is the Electrochemiluminescence Immunoassay by [employer]. Total PSA values by differing methodologies cannot be interchanged. Testosterone Level78 ng/zU060-517GqfumjcqgSt. Mary'S Medical CenterComment on above:A testosterone level in the 193-320 ng/dL range with associated clinical symptoms is considered lowand may indicate hypogonadism (from [facility] 2009 363:123- 135). Results >320 ng/dL are considered normal.Result rechecked.Nucleated RBC Auto (Bld) [#/Vol]on 64-18-1768Piitgxjon RBC (Bld) [#/Vol]10*3/uL<0.01[facility] CenterNucleated erythrocytes [Presence] in Blood by Automated counton 15-43-1253Bufeyyfci RBC Auto Ql (Bld)0.0 /100{WBC}[facility] Medical CenterPlatelet mean volume Auto (Bld) [Entitic vol]on 90-56-1734Vmwmrinv mean volume (Bld) [Entitic vol]9.5 fL9.0-12.7FMemorial Health System Marietta Memorial Hospital Platelets Auto (Bld) [#/Vol]on 28-55-9195Xcokhwwzn (Bld) [#/Vol]192 10*3/uL 150-400[facility] CenterProtein [Mass/volume] in Serum or Plasma on 98-40-9718Mmvihdt [Mass/Vol]6.5 g/dL6.3-8.0[facility] RBC Auto (Bld) [#/Vol]on 23-00-7867PWP (Bld) [#/Vol]3.90 10*6/uL4.20-6.00 [facility] Community Hospitalerum or plasma anion gap determinationon 01-07-1099Rvxuc gap [Moles/Vol]13 mmol/L9-18FMemorial Health System Marietta Memorial HospitalNo Panel Informationon 84-96-9769Qtwxhozm Specific Antigen Total<0.13 ng/mL<=4.00 [facility] CenterNo Panel Informationon 47-97-2014RXPH HealthcareType of biopsy: tangential Informed consent: discussed [...] Amount of lidocaine used: 0.5 [facility] HuntersvilleGLYCOHEMOGLOBIN A1Con 47-40-2652BQU RECOMMENDATIONSEE BELOWKettering Health MiamisburgComment on above:Result Comment: ADA RECOMMENDED LIMIT 4.0 - 6.0 ADA THERAPEUTIC TARGET < 7.0 ACTION SUGGESTED > 7.0Performed By: #### DATA1C #### [facility] [address] [place] [address] Dr. Bharati AguiarGlucose [Mass/Vol]131 mg/dLNoLicking Memorial HospitalComment on above:Performed By: #### DATA1C #### [facility] Laboratory [address] [address] [address] Bharati AguiarHbA1c (Bld) [Mass fraction]6.2 %Normal4.5-6.2The [facility], AvonComment on above:Performed By: #### DATA1C #### [facility] [address] [address] [address] Bharati AguiarXR CSPINE OBL FLEX_EXTon 28-08-9484FT CSPINE OBL FLEX_EXT EXAMINATION: XR CSPINE OBL [...] Electronically authenticated by: CYNTHIA TORRES Date: 2022-07-21 15:52[facility] MiamisburgGLYCOHEMOGLOBIN A1Con 72-63-4527YXC RECOMMENDATIONSEE BELOW NormalThe [facility], AvonComment on above:Result Comment: ADA RECOMMENDED LIMIT 4.0 - 6.0 ADA THERAPEUTIC TARGET < 7.0 ACTION SUGGESTED > 7.0Performed By: #### DATA1C #### [facility] [address] [place] [address] Dr. Bharati AguiarGlucose [Mass/Vol]134 mg/dLNoLicking Memorial HospitalComment on above:Performed By: #### DATA1C #### [facility] [address] [place] [address] Dr. Bharati AguiarHbA1c (Bld) [Mass fraction]6.3 %Critically high4.5-6.2The [facility], AvonComment on above:Performed By: #### DATA1C #### [facility] [address] [place] [address] Dr. Calabrese ChangECHOCARDIO M/2D COMPLETEon 40-41-6017TIAOYTYXSD M/2D COMPLETE Patient: PABLO FELIX Exam Date: 04/27/2022 : 1945 Gender:M Ordering : LORA ENGLISH Admission #: [id number] Family : DR JAMAR FALL D.O. Order #: [id number] CLICK HERE TO VIEW EXAM ECHOCARDIOGRAM REPORT [...] by: Faizan Carreon M.D. on 04/28/2022 at 19:09[facility] MiamisburgGLYCOHEMOGLOBIN A1Con 43-17-5406CRA RECOMMENDATIONSEE [facility] Medical CenterComment on above:Result Comment: ADA RECOMMENDED LIMIT 4.0 - 6.0 ADA THERAPEUTIC TARGET < 7.0 ACTION SUGGESTED > 7.0Performed By: #### DATA1C ####[facility] [address] [address]DrJunior AguiarGlucose [Mass/Vol]137 mg/dLKettering Health Miamisburg Comment on above:Performed By: #### DATA1C ####[facility] [address] [address]Dr. Bharati AguiarHbA1c (Bld) [Mass fraction] 6.4 %Critically high4.5-6.2The [facility], AvonComment on above:Performed By: #### DATA1C ####[facility] [address] [address]Dr. Bharati Muro BONE SC WH BODYon 31-61-7555JK BONE SC BODYWHOLE BODY RADIONUCLIDE BONE SCAN: COMPARISON: CT of the chest, abdomen, and pelvis dated 11/05/2021 HISTORY: Prostate carcinoma TRACER DOSE: 25.0 mCi of technetium-99m MDP. FINDINGS: Fairly prominent tracer uptake is seen at the lesser trochanter of the left hip. This is suspicious for metastasis, although it was not obviously included in the cncpo-vr-vlvh of the recent CT. There are foci [...] by: FEDE DE JESUS Date: 2021-11-06 12:45Normal [facility] CHEST W CONon 18-58-8292YC CHEST W CONClinical Indication: Primary malignant neoplasm [...] Electronically authenticated by: LUIZ UMANA Date: 2021-11-05 14:08[facility] MiamisburgPROF 14(COMP METB)on 43-79-6523Gjvmtlo [Mass/Vol]3.6 g/dLNormal 3.4-5.0The [facility] on above:Performed By: #### CMP #### [facility] [address] [place] [address] Dr. Bharati AguiarAlbumin/Globulin [Mass ratio]1.1 {ratio}NormalThe [facility] on above:Performed By: #### CMP #### [facility] [address] [place] [address] Dr. Bharati Romero [Catalytic activity/Vol]89 U/HJxasmd46-467Ptt [facility] on above:Performed By: #### CMP #### [facility] [address] [place] [address] Dr. Bharati Burnette [Catalytic activity/Vol]33 U/CBvjyre28-17Znb [facility] HospitalComment on above:Performed By: #### CMP #### [facility] [address] [address] [address] Bharati Marcos gap [Moles/Vol]12.1 mmol/LNormalThe [facility] Comment on above:Performed By: #### CMP #### [facility] [address] [address] [address] Bharati AguiarAST [Catalytic activity/Vol]19 U/QBzonmz07-50Xky [facility], AvonComment on above:Performed By: #### CMP #### [facility] [address] [address] [address] Bharati AguiarBilirubin [Mass/Vol]0.9 mg/dLNormal0.2-1.3[facility] Comment on above:Performed By: #### CMP #### [facility] [address] [address] [address] Bharati AguiarCalcium [Mass/Vol]8.8 mg/dLNormal8.5-10.1The [facility] Comment on above:Performed By: #### CMP #### [facility] Laboratory [address] [address] [address] Bharati AguiarChloride [Moles/Vol]103 mmol/NIwbpyf15-609Pgp [facility] Comment on above:Performed By: #### CMP #### [facility] Laboratory [address] [address] [address] Bharati AguiarCO2 [Moles/Vol]28.6 mmol/IHxhtgp62.0-30.0The [facility] Comment on above:Performed By: #### CMP #### [facility] [address] [address] [address] Bharati AguiarCreatinine [Mass/Vol]0.85 mg/dLNormal0.66-1.25The [facility], AvonComment on above:Performed By: #### CMP #### [facility] [address] [address] [address] Calabrese ChangEGFR-AF BELIZEAN>60Normal>=60The [facility], AvonComment on above:Performed By: #### CMP #### [facility] [address] [address] [address] Bharati MarshGFR-NON AF BELIZEAN>60Normal>=60The [facility], AvonComment on above:Performed By: #### CMP #### [facility] [address] [address] [address] Bharati AguiarGlobulin (S) [Mass/Vol]3.4 g/dLNormMansfield HospitalComment on above:Performed By: #### CMP #### [facility] [address] [address] [address] Bharati AguiarGlucose [Mass/Vol]127 mg/dLCritically evke58-921Pva [facility] AvonComment on above:Performed By: #### CMP #### [facility] [address] [place] [address] Dr. Bharati AguiarPotassium [Moles/Vol]4.7 mmol/LNormal3.4-5.0The [facility] Comment on above:Performed By: #### CMP #### [facility] [address] [place] [address] Dr. Bharati AguiarProtein [Mass/Vol]7.0 g/dLNormal6.1-8.2The [facility] Comment on above:Performed By: #### CMP #### [facility] [address] [place] [address] Dr. Bharati AguiarSodium [Moles/Vol]139 mmol/QRinrtp301-474Can [facility] Comment on above:Performed By: #### CMP #### [facility] [address] [place] [address] Dr. Bharati AguiarUrea nitrogen [Mass/Vol]18.0 mg/dLNormal7.0-18.0The [facility], AvonComment on above:Performed By: #### CMP #### [facility] [address] [place] [address] Dr. Bharati AguiarUrea nitrogen/Creatinine [Mass ratio]21.2 mg/mgNormalThSuburban Community Hospital & Brentwood HospitalComment on above:Performed By: #### CMP #### [facility] [address] [place], [place] [address] Dr. Bharati Aguiar Vital Signs Date TimeVital SignValuePerforming SmgtjxrgtElhcvpbf29-31-6194 09:27-0400Body .91 cmBenjamin Ball DO Work Phone: [facility]10-16-2025 09:27-0400 Body mass index (BMI) [Ratio]32.7 kg/s0Urjumxyi Ball DO Work Phone: [phone]10-16-2025 09:27-0400 Body lbyadu28.44 kgBenjamin Ball DO Work Phone: [phone] [place], [place] [address]10-16-2025 09:27-0400 Diastolic blood mm[Hg]Jamar Ball DO Work Phone: [phone]10-16-2025 09:27-0400 Heart rate71 /minBenjamin Ball DO Work Phone: [phone] [place], [place] [address]10-16-2025 09:27-0400 Respiratory rate12 /minBenjamin Ball DO Work Phone: [phone] [place], [place] [address]10-16-2025 09:27-0400 Systolic blood iclgxrqo977 mm[Hg]Jamar Ball DO Work Phone: [phone]02-17-2025 09:44-0500 Body sdkfed504.91 cmSt. Mary'S Medical Center02-17-2025 09:44-0500Body mass index (BMI) [Ratio]32.4 kg/a8MslxarlpxSt. Mary'S Medical Center02-17-2025 09:44-0500Body .53 kgSt. Mary'S Medical Center02-17-2025 09:44-0500Diastolic blood thwtfway68 mm[Hg][facility] 09-02-2024 09:44-0500Heart rate46 /[facility] 09-02-2024 09:44-0500Respiratory rate12 /[facility] 09-02-2024 09:44-0500Systolic blood hyvrqtmn293 mm[Hg][facility]01-23-2025 09:07-0500Body ylgzcv325.6 cmChristo Howard APRN.MANAGER CLIENT Work Phone: [facility]01-23-2025 09:07-0500Body mass index (BMI) [Ratio]33.82 kg/d0NsmpzChristo Howard APRN.MANAGER CLIENT Work Phone: [facility]01-23-2025 09:07-0500Body temperature 97.9 [degF]Christo Howard APRN.MANAGER CLIENT Work Phone: [facility]01-23-2025 09:07-0500Body yrvapd03 kg Christo Howard APRN.MANAGER CLIENT Work Phone: [facility]01-23-2025 09:07-0500Diastolic blood qaxtwkmh29 mm[Hg]Christo Howard APRN.MANAGER CLIENT Work Phone: [facility]01-23-2025 09:07-0500Heart rate57 /min Christo Howard APRN.MANAGER CLIENT Work Phone: [facility]01-23-2025 09:07-0500Respiratory rate 16 /minChristo Howard APRN.MANAGER CLIENT Work Phone: [facility]01-23-2025 09:07-7215VdU4% (BldA) [Mass fraction]99 %Christo Howard APRN.MANAGER CLIENT Work Phone: [facility]01-23-2025 09:07-0500Systolic blood mm[Hg]Christo Howard APRN.MANAGER CLIENT Work Phone: [facility]11-25-2024 14:25-0500Body soxgex121.[address] cm[facility]-25-2024 14:25-0500Body mass index (BMI) [Ratio]32.8 kg/j6VsooliqykSt. Mary'S Medical [facility]11-25-2024 14:25-0500Body qmtkpu77.55 kgSt[facility]11-25-2024 14:25-0500Diastolic blood mm[Hg][facility]11-25-2024 14:25-0500 Heart rate61 /[facility]11-25-2024 14:25-0500 Respiratory rate12 /[facility]11-25-2024 14:25-0500 Systolic blood qgodgimk560 mm[Hg][facility]10-24-2024 08:52-0400Body mass index (BMI) [Ratio]32.79 kg/h2XxwcoMarco A Esqueda MD Work Phone: [facility]10-24-2024 08:52-0400Body temperature 97.3 [degF]Marco A Esqueda MD Work Phone: [facility]10-24-2024 08:52-0400Body ypgodx84.1 kgMarco A Esqueda MD Work Phone: [facility]10-24-2024 08:52-0400Diastolic blood mm[Hg]Marco A Esqueda MD Work Phone: [facility]10-24-2024 08:52-0400Heart rate62 /min Marco A Esqueda MD Work Phone: [facility]10-24-2024 08:52-0400Respiratory rate 16 /minMarco A Esqueda MD Work Phone: [facility]10-24-2024 08:52-3546KoX8% (BldA) [Mass fraction]99 %Marco A Esqueda MD Work Phone: [facility]10-24-2024 08:52-0400Systolic blood hvypxwoq454 mm[Hg]Marco A Esqueda MD Work Phone: [facility]10-04-2024 08:15-0400Blood Pressure LocationAnthony SCRUGGS [facility]10-04-2024 08:15-0400Body wfygirjhawt46.6 [degF]Anthony SCRUGGS [facility]10-04-2024 08:15-0400Diastolic blood gcvixfpa79 mm[Hg]Anthony SCRUGGS [facility]10-04-2024 08:15-0400Heart rate64 /minAnthony SCRUGGS [facility]10-04-2024 08:15-0400Respiratory rate17 /minAnthony SCRUGGS [facility]10-04-2024 08:15-0400Systolic blood untvnrec959 mm[Hg]Anthony SCRUGGS [facility]09-10-2024 08:37-0400Body pbhyia361.[address] cm[address] [facility]09-10-2024 08:37-0400Body mass index (BMI) [Ratio]33 kg/z0KsvdaadazSt. Mary'S Medical Center09-10-2024 08:37-0400Body cjxcxy57.12 kgSt[address] [facility]09-10-2024 08:37-0400Diastolic blood robrsklk23 mm[Hg] [facility]09-10-2024 08:37-0400Heart rate52 /[facility]09-10-2024 08:37-0400Respiratory rate12 /[facility]09-10-2024 08:37-0400Systolic blood zhkifuec037 mm[Hg] [facility]07-19-2024 11:06-0400Body titays323.6 Dara Rajan PASSENGER AGENT.MANAGER CLIENT Work Phone: [facility]07-19-2024 11:06-0400Body mass index (BMI) [Ratio]33.36 kg/y0UquqxLynne Rajan APRN.MANAGER CLIENT Work Phone: [facility]07-19-2024 11:06-0400Body temperature 97.3 [degF]Lynne Rajan PASSENGER AGENT.MANAGER CLIENT Work Phone: [facility]07-19-2024 11:06-0400Body vybkjm71.7 kgKalaagapito Satinder ESPINOZAN.MANAGER CLIENT Work Phone: [facility]07-19-2024 11:06-0400Diastolic blood puogijoi49 mm[Hg]Lynne Rajan PASSENGER AGENT.MANAGER CLIENT Work Phone: [facility]07-19-2024 11:06-0400Heart rate52 /min Lynne Rajan PASSENGER AGENT.MANAGER CLIENT Work Phone: [facility]07-19-2024 11:06-0400Respiratory rate 16 /minErniharika Rajan PASSENGER AGENT.MANAGER CLIENT Work Phone: [facility]07-19-2024 11:06-1472DlA4% (BldA) [Mass fraction]98 %Lynne Rajan PASSENGER AGENT.MANAGER CLIENT Work Phone: [facility]07-19-2024 11:06-0400Systolic blood mm[Hg]Lynne Rajan PASSENGER AGENT.MANAGER CLIENT Work Phone: [facility]05-09-2024 08:38-0400Body .[address] cm[facility]05-09-2024 08:38-0400Body mass index (BMI) [Ratio]33.2 kg/y2BwyexeuyhSt. Mary'S Medical Center05-09-2024 08:38-0400Body gryyej77.8 kgSt. [facility]05-09-2024 08:38-0400Diastolic blood zaqbqgrf27 mm[Hg][facility]05-09-2024 08:38-0400 Heart rate48 /[facility]05-09-2024 08:38-0400 Respiratory rate12 /[facility]05-09-2024 08:38-0400 Systolic blood dnrjlsla067 mm[Hg][facility]04-18-2024 09:14-0400Body .6 cmChristo Howard APRN.MANAGER CLIENT Work Phone: [facility]04-18-2024 09:14-0400Body temperature 97.81 [degF]Christo Howard PASSENGER AGENT.MANAGER CLIENT Work Phone: [facility]04-18-2024 09:14-0400Body bjujuk53.9 kgChristo Howard PASSENGER AGENT.MANAGER CLIENT Work Phone: [facility]04-18-2024 09:14-0400Diastolic blood whrqqawj93 mm[Hg]Christo Howard PASSENGER AGENT.MANAGER CLIENT Work Phone: [facility]04-18-2024 09:14-0400Heart rate56 /min Christo Howard PASSENGER AGENT.MANAGER CLIENT Work Phone: [facility]04-18-2024 09:14-0400Respiratory rate 16 /minChristo Howard PASSENGER AGENT.MANAGER CLIENT Work Phone: [facility]04-18-2024 09:14-6544KzC9% (BldA) [Mass fraction]97 %Christo Howard PASSENGER AGENT.MANAGER CLIENT Work Phone: [facility]04-18-2024 09:14-0400Systolic blood mm[Hg]Christo Howard PASSENGER AGENT.MANAGER CLIENT Work Phone: [facility]04-05-2024 09:05-0400Blood Pressure LocationPabj SCRUGGS [facility]04-05-2024 09:05-0400Diastolic blood nflisdbq62 mm[Hg]Anthony SCRUGGS [facility]04-05-2024 09:05-0400Heart rate53 /minAnthony SCRUGGS [facility]04-05-2024 09:05-0400Respiratory rate16 /minAnthony SCRUGGS [facility]04-05-2024 09:05-0400Systolic blood uduwtepp220 mm[Hg]Anthony SCRUGGS [facility]02-27-2024 14:13-0500Body whvoor229.[address] cmSt[address] [facility]02-27-2024 14:13-0500Body mass index (BMI) [Ratio]33.4 kg/e6BuykuvuewSt. Mary'S Medical Center02-27-2024 14:13-0500Body .42 kgSt. [facility]02-27-2024 14:13-0500Diastolic blood dsqbqhdi90 mm[Hg] [facility]02-27-2024 14:13-0500Heart rate56 /[facility]02-27-2024 14:13-0500Respiratory rate12 /[facility]02-27-2024 14:13-0500Systolic blood jjojjcgk912 mm[Hg] [facility]02-08-2024 08:30-0500Body rawhis140.91 cm Jamar Ball Other [employer] Other 02-08-2024 08:30-0500Body mass index (BMI) [Ratio] 34.08 kg/o7Prdjpwxw Ball Other [employer] Other 02-08-2024 08:30-0500Body jwdnli62.25 kgBenjamin Ball Other [employer] Other 02-08-2024 08:30-0500Diastolic blood ritqhojk34 mm[Hg] Jamar Ball Other [employer] Other 02-08-2024 08:30-0500Respiratory rate12 /minBenjamin Ball Other [employer] Other 02-08-2024 08:30-0500Systolic blood hecwcppa125 mm[Hg] Jamar Ball Other [employer] Other 11-14-2023 15:00-0500Body uxllzj093.91 cmBenjamin Ball Other [employer] Other 11-14-2023 15:00-0500Body mass index (BMI) [Ratio] 32.84 kg/o8Zbjgkvco Ball Other [employer] Other 11-14-2023 15:00-0500Body lznetf70.71 kgBenjamin Ball Other [employer] Other 11-14-2023 15:00-0500Diastolic blood uhpxgctx08 mm[Hg] Jamar Ball Other [employer] Other 11-14-2023 15:00-0500Respiratory rate12 /minBenjamin Ball Other [employer] Other 11-14-2023 15:00-0500Systolic blood srzbsezw171 mm[Hg] Jamar Ball Other [employer] Other 10-16-2023 09:45-0400Body jersfi379.91 cmBenjamin Ball Other [employer] Other 10-16-2023 09:45-0400Body mass index (BMI) [Ratio] 32.14 kg/s7Mplgkznn Ball Other [employer] Other 10-16-2023 09:45-0400Body drvsaw71.72 kgBenjamin Ball Other [employer] Other 10-16-2023 09:45-0400Diastolic blood mgeoiqtm23 mm[Hg] Jamar Ball Other [employer] Other 10-16-2023 09:45-0400Respiratory rate12 /minBenjamin Ball Other [employer] Other 10-16-2023 09:45-0400Systolic blood ebqukpzx642 mm[Hg] Jamar Fall Other [employer] Other 10-12-2023 09:23-0400Diastolic blood vrcdacyx74 mm[Hg] Christo Howard APRN.MANAGER CLIENT Work Phone: [facility]10-12-2023 09:23-0400Heart rate50 /min Christo Howard APRN.MANAGER CLIENT Work Phone: [facility]10-12-2023 09:23-0400Systolic blood jztktoyz548 mm[Hg]Christo Howard APRN.MANAGER CLIENT Work Phone: [facility]10-12-2023 09:20-0400Body .6 cmChristo Howard APRN.MANAGER CLIENT Work Phone: [facility]10-12-2023 09:20-0400Body temperature 97 [degF]Christo Howard APRN.MANAGER CLIENT Work Phone: [facility]10-12-2023 09:20-0400Body .53 kgChristo Howard APRN.MANAGER CLIENT Work Phone: [facility]10-12-2023 09:20-0400Respiratory rate 16 /minChristo Howard APRN.MANAGER CLIENT Work Phone: [facility]10-12-2023 09:20-2640DqI2% (BldA) [Mass fraction]100 %Christo Howard APRN.MANAGER CLIENT Work Phone: [facility]10-02-2023 08:45-0400Blood Pressure Fe SCRUGGS [facility]10-02-2023 08:45-0400Diastolic blood tlegdprq40 mm[Hg]Anthony SCRUGGS [facility]10-02-2023 08:45-0400Heart rate62 /Rema SCRUGGS [facility]10-02-2023 08:45-0400Respiratory rate16 /minAnthony SCRUGGS [facility]10-02-2023 08:45-0400Systolic blood qbevqltg961 mm[Hg]Anthony SCRUGGS [facility]09-20-2023 13:45-0400Body xlqujr255.91 cmBenjamin Ball Other [employer] Other 09-20-2023 13:45-0400Body mass index (BMI) [Ratio] 32.46 kg/c7Ejcgfvdy Ball Other [employer] Other 09-20-2023 13:45-0400Body yqqwde92.63 kgBenjamin Ball Other [employer] Other 09-20-2023 13:45-0400Diastolic blood decwznvf35 mm[Hg] Jamar Ball Other [employer] Other 09-20-2023 13:45-0400Respiratory rate12 /minBenjamin Ball Other [employer] Other 09-20-2023 13:45-0400Systolic blood jzhaeyrl801 mm[Hg] Jamar Ball Other [employer] Other 08-30-2023 08:45-0400Body ztubqf295.91 cmBenjamin Ball Other [employer] Other 08-30-2023 08:45-0400Body mass index (BMI) [Ratio] 32.81 kg/p5Ujttabyu Ball Other [employer] Other 08-30-2023 08:45-0400Body .62 kgBenalfie Ball Other [employer] Other 08-30-2023 08:45-0400Diastolic blood mm[Hg] Jamar Ball Other [employer] Other 08-30-2023 08:45-0400Respiratory rate12 /minBenalfie Fall Other [employer] Other 08-30-2023 08:45-0400Systolic blood meinmssa535 mm[Hg] Jamar Ball Other [employer] Other 07-20-2023 09:32-0400Body .6 cmMarco A Esqueda MD Work Phone: [facility]07-20-2023 09:32-0400Body temperature 97.2 [degF]Marco A Esqueda MD Work Phone: [facility]07-20-2023 09:32-0400Body rirlkx40.62 kgMarco A Esqueda MD Work Phone: [facility]07-20-2023 09:32-0400Diastolic blood jtiyjdgn85 mm[Hg]Marco A Esqueda MD Work Phone: [facility]07-20-2023 09:32-0400Heart rate50 /min Marco A Esqueda MD Work Phone: [facility]07-20-2023 09:32-0400Respiratory rate 16 /minMarco A Esqueda MD Work Phone: [facility]07-20-2023 09:32-3659TbZ8% (BldA) [Mass fraction]97 %Marco A Esqueda MD Work Phone: [facility]07-20-2023 09:32-0400Systolic blood aozukefk152 mm[Hg]Marco A Esqueda MD Work Phone: [facility]04-27-2023 09:30-0400Body wivkxe124.6 cmChristo Howard APRN.MANAGER CLIENT Work Phone: [facility]04-27-2023 09:30-0400Body temperature 97.11 [degF]Christo Howard APRN.MANAGER CLIENT Work Phone: [facility]04-27-2023 09:30-0400Body .44 kgChristo Howard APRN.MANAGER CLIENT Work Phone: [facility]04-27-2023 09:30-0400Diastolic blood zcyoagho17 mm[Hg]Christo Howard APRN.MANAGER CLIENT Work Phone: [facility]04-27-2023 09:30-0400Heart rate54 /min Christo Howard APRN.MANAGER CLIENT Work Phone: [facility]04-27-2023 09:30-0400Respiratory rate 16 /minChristo Howard APRN.MANAGER CLIENT Work Phone: [facility]04-27-2023 09:30-5070CnD8% (BldA) [Mass fraction]98 %Christo Howard APRN.MANAGER CLIENT Work Phone: [facility]04-27-2023 09:30-0400Systolic blood idznnmwj034 mm[Hg]Christo Howard APRN.MANAGER CLIENT Work Phone: [facility]03-03-2023 08:30-0500Body cyqmlj870.91 cmBenPenn Medicine Other [employer] Other 03-03-2023 08:30-0500Body mass index (BMI) [Ratio] 33.16 kg/a9Aukcnazy Ball Other [employer] Other 03-03-2023 08:30-0500Body tjqgly75.62 kgBenjamin Ball Other [employer] Other 03-03-2023 08:30-0500Diastolic blood sxeczlza93 mm[Hg] Jamar Ball Other [employer] Other 03-03-2023 08:30-0500Respiratory rate12 /minBenjamin Ball Other [employer] Other 03-03-2023 08:30-0500Systolic blood efxozqhf126 mm[Hg] Jamar Ball Other [employer] Other 02-24-2023 08:30-0500Body luffwd928.91 cmBenjamin Ball Other [employer] Other 02-24-2023 08:30-0500Body mass index (BMI) [Ratio] 33.45 kg/j7Spsmirrn Ball Other [employer] Other 02-24-2023 08:30-0500Body .44 kgBenjamin Ball Other [employer] Other 02-24-2023 08:30-0500Diastolic blood qnnqisxg10 mm[Hg] Jamar Ball Other [employer] Other 02-24-2023 08:30-0500Respiratory rate12 /minBenjamin Ball Other [employer] Other 02-24-2023 08:30-0500Systolic blood eaoceral350 mm[Hg] Jamar Ball Other [facility] [employer] Other 02-24-2023 07:30-0500Body blogrf220.91 cmBenjajennifer Ball Other [employer] Other 02-24-2023 07:30-0500Body mass index (BMI) [Ratio] 33.45 kg/j5Dvuvycgl Ball Other [employer] Other 02-24-2023 07:30-0500Body aebsxk44.44 kgBenalfie Ball Other [facility] [employer] Other 02-24-2023 07:30-0500Diastolic blood iofphjie38 mm[Hg] Jamar Fall Other [employer] Other 02-24-2023 07:30-0500Respiratory rate12 /minBenalfie Ball Other [employer] Other 02-24-2023 07:30-0500Systolic blood vybqwmkf327 mm[Hg] Jamar Fall Other [employer] Other 01-26-2023 09:24-0500Body syofgr519.6 cmMarco A Esqueda MD Work Phone: [facility]01-26-2023 09:24-0500Body temperature 97 [degF]Marco A Esqueda MD Work Phone: [facility]01-26-2023 09:24-0500Body .44 kgMarco A Esqueda MD Work Phone: [facility]01-26-2023 09:24-0500Diastolic blood zvhqfnoy25 mm[Hg]Marco A Esqueda MD Work Phone: [facility]01-26-2023 09:24-0500Heart rate53 /min Marco A Esqueda MD Work Phone: [facility]01-26-2023 09:24-0500Respiratory rate 16 /minMarco A Esqueda MD Work Phone: [facility]01-26-2023 09:24-9370BzB9% (BldA) [Mass fraction]97 %Marco A Esqueda MD Work Phone: [facility]01-26-2023 09:24-0500Systolic blood wmrzykkz269 mm[Hg]Marco A Esqueda MD Work Phone: [facility]01-05-2023 15:30-0500Body .91 cmBenjamin Ball Other [employer] Other 01-05-2023 15:30-0500Body mass index (BMI) [Ratio] 34.18 kg/p5Tcmrkswc Ball Other [employer] Other 01-05-2023 15:30-0500Body udovlf26.52 kgBenjamin Ball Other [employer] Other 01-05-2023 15:30-0500Diastolic blood mywamzew10 mm[Hg] Jamar Ball Other [employer] Other 01-05-2023 15:30-0500Respiratory rate16 /minBenjamin Ball Other [employer] Other 01-05-2023 15:30-0500Systolic blood grourwrr026 mm[Hg] Jamar Ball Other [employer] Other [id number] 09:07-0400[facility]10-28-2022 09:07-0400Diastolic blood pgqziwfh61 mm[Hg]Anthonycindy SCRUGGS [facility]10-28-2022 09:07-0400Heart rate55 /minPatrick SCRUGGS [facility]10-28-2022 09:07-0400Respiratory rate16 /minPatrick SCRUGGS [facility]10-28-2022 09:07-0400Systolic blood jxddfwwa180 mm[Hg]Anthony SCRUGGS [facility]10-27-2022 10:41-0400Body qgtkhjhvgna25.81 [degF]LUAN Khan MD Work Phone: [facility]10-27-2022 10:41-0400Body gfdmca31.07 kgNA Bill JAMES Work Phone: [facility]10-27-2022 10:41-0400Diastolic blood amgzjjav48 mm[Hg]LUAN Khan MD Work Phone: [facility]10-27-2022 10:41-0400Heart rate51 /min LUAN Khan MD Work Phone: [facility]10-27-2022 10:41-0400Respiratory rate 18 /NathalieLUAN Khan MD Work Phone: [facility]10-27-2022 10:41-5081FiO9% (BldA) [Mass fraction]99 %LUAN Khan MD Work Phone: [facility]10-27-2022 10:41-0400Systolic blood snlsutbo922 mm[Hg]LUAN Khan MD Work Phone: [facility]08-04-2022 09:36-0400Body ncjokm285.6 cmMarco A Esqueda MD Work Phone: [facility]08-04-2022 09:36-0400Body temperature 97.9 [degF]Marco A Esqueda MD Work Phone: [facility]08-04-2022 09:36-0400Body ynssyf97.07 kgMarco A Esqueda MD Work Phone: [facility]08-04-2022 09:36-0400Diastolic blood zukyqlon12 mm[Hg]Marco A Esqueda MD Work Phone: [facility]08-04-2022 09:36-0400Heart rate63 /min Marco A Esqueda MD Work Phone: [facility]08-04-2022 09:36-0400Respiratory rate 16 /minMarco A Esqueda MD Work Phone: [facility]08-04-2022 09:36-4195XyM6% (BldA) [Mass fraction]99 %Macro A Esqueda MD Work Phone: [facility]08-04-2022 09:36-0400Systolic blood ukepcnlj258 mm[Hg]Marco A Esqueda MD Work Phone: [facility]05-05-2022 10:50-0400Body temperature 97.7 [degF]Lab/[place] Work Phone: [facility]05-05-2022 10:50-0400Diastolic blood mm[Hg][facility] [place] Work Phone: [facility]05-05-2022 10:50-0400Heart rate60 /min Lab/[place] Work Phone: [facility]05-05-2022 10:50-0400Respiratory rate 18 /minLab/[facility] Work Phone: [facility]05-05-2022 10:50-9654EnR7% (BldA) [Mass fraction]95 %Lab/[place] Work Phone: [facility]05-05-2022 10:50-0400Systolic blood mdnzurpt497 mm[Hg]Lab/[place] Work Phone: [facility]04-28-2022 13:58-0400Body xaardu864.6 cmMarco A Esqueda MD Work Phone: [place] [address]-28-2022 13:58-0400Body temperature 97.39 [degF]Marco A Esqueda MD Work Phone: [facility]04-28-2022 13:58-0400Body evljoq88.97 kgMarco A Esqueda MD Work Phone: [place] [address]-28-2022 13:58-0400Diastolic blood mm[Hg]Marco A Esqueda MD Work Phone: [facility]04-28-2022 13:58-0400Heart rate68 /min Marco A Esqueda MD Work Phone: [facility]04-28-2022 13:58-0400Respiratory rate 16 /minMarco A Esqueda MD Work Phone: [place] [address]-28-2022 13:58-2392CmI7% (BldA) [Mass fraction]98 %Marco A Esqueda MD Work Phone: [facility]04-28-2022 13:58-0400Systolic blood vgjaixbh543 mm[Hg]Marco A Esqueda MD Work Phone: [facility]04-25-2022 13:03-0400Blood Pressure LocationPabj SCRUGGS [facility] 04-25-2022 13:03-0400Diastolic blood kzdfzrot04 mm[Hg] Anthony SCRUGGS [facility] 04-25-2022 13:03-0400Heart rate61 /minPabj SCRUGGS [facility] 04-25-2022 13:03-0400Systolic blood oqryixfy006 mm[Hg] Anthony SCRUGGS [facility] Encounters Encounter DateEncounter TypeCare ProviderFacilityStart: 33-26-0865hzycnwhtgs Anthony SCRUGGSFacility:[facility]Start: 09-88-5630fnpkdcmervCqbnybh R WATERS Facility:[facility] [place]Start: 05-22-2025 End: 15-71-1661bpfsgdvmxdXPJGWPQE E BALLFacility:[facility]tart: 05-15-2025 End: 79-56-9589noqpmsgqwiWVOGOQNW E BALLFacility:[facility] Hospitaltart: 05-01-2025 End: 29-10-2714ecorpfzejgIvvjpenq Ball DO Work Phone: [facility] Work Phone: Start: 05-01-2025 End: 39-41-7296Tsxvhqw encounter procedureBenjamin Ball DO-[facility] Work Phone: Start: 03-31-2025 End: 94-82-0237hyjjnmhvvjKwvwfcj R WATERSFacility:[facility]: 03-31-2025 End: 83-93-6553Tcrsyos encounter procedureAnthony SCRUGGS [facility] start: 97-16-7125Geu-patient / Non-visitOutside Provider-[facility] Work Phone: Start: 73-14-2793Onv-patient / Non-visitMelgena Quiroz CNP-[facility] Work Phone: Start: 03-20-2025 End: 46-91-9766ytlklhxncpNVWBENT [facility]: 03-20-2025 End: 10-85-5588Kcpwbcmfj for general adult medical examination without abnormal findingsEASTERN [facility] DIVISIONGENA [facility] CenterStart: 02-25-2025 End: 30-08-6424Qwzhvk flowsheetNatalie A Felter PASSENGER AGENT-MANAGER CLIENT Work Phone: [facility]atologyStart: 02-25-2025 End: 92-94-3600Mglxmt flowsheetNatalie A Felter PASSENGER AGENT-MANAGER CLIENT Work Phone: [facility]ermatologyStart: 02-25-2025 End: 47-88-4879Hddhxl outpatient visit 15 minutesNatalie A Felter PASSENGER AGENT-MANAGER CLIENT Work Phone: noMS Krishnan DermatologyComment on above:Seborrheic keratosis (Primary Dx); Melanocytic nevus of trunk; Actinic keratosis; Lentigines; Psoriasis vulgaris ; History of SCC (squamous cell carcinoma) of skinStart: 02-20-2025 End: 77-91-6738zaslmtippaMGWUTUBQ E BALLFacility:[facility] Hospitaltart: 02-17-2025 End: 52-78-2585eeuyxssmldNwsirlc [place] Giedrabrianna JAMESFacility:[facility] Start: 37-03-7902Blq-patient / Non-visitMarco A Esqueda MD-[facility] Work Phone: Start: 2025 End: [id number] ABHYANKARFacility:[facility] HospitalStart: 11-07-2024 End: 46-87-1848ckjeucaiyqZOVPOKwadwo ESQUEDAFacility:[facility] Start: 10-31-2024 End: 86-60-9686sxdbqrhdlwOMHTFTNJ E BALLFacility:[facility] Hospitaltart: 10-21-2024 End: 90-69-3093jqtkrglxpqAdotxiv Vmarioautamanda Sethedcelia JAMESFacility:PM Armando Start: 10-07-2024 End: 05-94-3889clggbzahpwFhcmult R WATERSFacility:EU Jentart: 10-07-2024 End: 83-61-0435qlolugemkrVkobmdgSri Herrera MDFacility:MARY ANN Roberts Start: 09-02-2024 End: 78-58-3937xepkkymqnlUolwjceyxBarnesville Hospital Work Phone: Start: 09-02-2024 End: 21-26-6747Vhyoopx encounter procedureCritical Access Hospital Physician GroupUniversity Hospitals Ely[facility] Work Phone: Start: 01-26-8722Ggbstdi encounter procedureProMedica Fostoria Community Hospitaltart: 08-08-2024 End: 43-28-3148mmfhvzhxgoIio/[place] Work Phone: Hematology/OncologyComment on above:Malignant neoplasm of prostate (HCC) (Primary Dx)Malignant neoplasm of prostate (HCC) (Primary Dx); Essential hypertension; 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 angina pectoris, unspecified vessel or lesion type; Type 2 diabetes mellitus without complication, without long-term current use of insulin (HCC)Start: 08-08-2024 End: 97-35-9665Ywyjkdd encounter procedureChristo Howard APRN.CNP Work Phone: Hematology/OncologyStart: 08-01-2024 End: 85-43-3345owvqitizqtTOSWWKHP E BALLFacility:[facility] Hospitaltart: 32-56-9148Jwy-patient / Non-visitCritical Access Hospital Physician Group-[facility] Work Phone: Start: 07-25-2024 End: 06-46-8054Ajnwfgaka encounterMarco A Esqueda MD Work Phone: [facility] LaboratoryComment on above:Lab OrdersStart: 06-10-2024 End: 62-94-2160Erfxhsb encounter procedureCritical Access Hospital Physician GroupUniversity Hospitals Ely[facility] Center Work Phone: Start: 05-09-2024 End: 23-13-7606bnpzhiokldFpz/[place] Work Phone: Hematology/OncologyComment on above:Malignant neoplasm of prostate (HCC) (Primary Dx)Start: 05-09-2024 End: 69-61-3659Fklylid encounter Jovan Esqueda MD Work Phone: Hematology/OncologyStart: 05-08-2024 End: 29-40-6500SwuntlKhuzbjx [facility] Work Phone: [facility] PharmacyComment on above: Refill RequestStart: 04-19-2024 End: 72-62-0022wecytynvllIfdkeqg R WATERSFacility:EU BellevueStart: 04-19-2024 End: 30-79-6127Akslcwj encounter Magi SCRUGGS [facility] Armando start: 04-01-2024 End: 91-69-0289EjsascJozszChalo Esqueda MD Work Phone: Hematology/OncologyComment on above:Refill Request Start: 04-01-2024 End: 80-29-2524LfubcuSgwbjjj [facility] Work Phone: [facility] -3Comment on above:Refill Request Start: 03-26-2024 End: 63-06-2934utgrdnrdxaHjoswinlfBarnesville Hospital Work Phone: Start: 03-26-2024 End: 06-78-1087Pyqhbbl encounter procedureCritical Access Hospital Physician GroupUniversity Hospitals Elyria [facility] Center Work Phone: Start: 02-29-2024 End: 45-49-5278lknaapowrgVIBURUGDYRT HASSETTNot AvailableStart: 02-26-2024 End: 72-35-4222ivihxzoraiYWOPPKA A FELTERNot AvailableStart: 02-02-2024 End: 73-31-8145earwcczjvfBey/[place] Work Phone: Hematology/OncologyComment on above:Malignant neoplasm of prostate (HCC) (Primary Dx)Start: 02-02-2024 End: 04-08-3970Zszqhgw encounter Phong Rajan APRN.MANAGER CLIENT Work Phone: Hematology/OncologyComment on above:Malignant neoplasm of prostate (HCC) (Primary Dx)Start: 05-79-1694Boo-patient / Non-visitCritical Access Hospital Physician [facility] Work Phone: Start: 11-23-2023 End: 63-94-4508fjlxjcooyuYxazjzxpaBarnesville Hospital Work Phone: Start: 11-23-2023 End: 60-14-0282Bxmeduq encounter procedureCritical Access Hospital Physician GroupUniversity Hospitals E[facility] Work Phone: Start: 11-02-2023 End: 49-26-6465haueqblgydDdy/[place] Work Phone: Hematology/OncologyComment on above:Malignant neoplasm of prostate (HCC) (Primary Dx)Malignant neoplasm of prostate (HCC) (Primary Dx); Essential hypertension; 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 angina pectoris, unspecified vessel or lesion type; Type 2 diabetes mellitus without complication, without long-term current use of insulin (HCC); Lesion of skin of right ear; Abdominal discomfortStart: 11-02-2023 End: 75-09-2714Blbqysv encounter Cecilia Howard APRN.CNP Work Phone: SANDUSKYStart: 70-03-3323Jxx-patient / Non-visit Critical Access Hospital Physician [facility] Work Phone: Start: 10-20-2023 End: 90-88-5045Avkjnda encounter procedureAnthony SCRUGGS [facility] start: 41-13-2811Pyu-patient / Non-visitCritical Access Hospital Physician [facility] Work Phone: Start: 09-28-2023 End: 46-13-9965gkuhezmoavQRYLSK E FLEMINGNot AvailableStart: 09-12-2023 End: 39-76-6418Zolfwaw encounter procedureDuke Healthmemo Physician Group-[facility] Work Phone: Start: 01-27-7030Fpi-patient / Non-visitAracelis Physician Group-[facility] [place] Work Phone: Start: 55-29-1288Wsfvrm flowsheetNatalie A Felter PASSENGER AGENT-MANAGER CLIENT Work Phone: noms SWS DERMStart: 70-91-0434Rhadfd flowsheetNatalie A Felter PASSENGER AGENT-MANAGER CLIENT Work Phone: noms SWS DERMStart: 08-28-2023 End: 56-17-9927Szofmjx encounter procedureNatalie A Felter PASSENGER AGENT-MANAGER CLIENT Work Phone: noms SWS DERMComment on above:Neoplasm of unspecified behavior of bone, soft tissue, and skin; Actinic keratosisStart: 08-28-2023 End: 58-40-8251pluqwifqkqXQBPEXR A FELTERNot AvailableStart: 08-24-2023 End: 17-99-2932bhvugpmhymPbtsrtyo Ball Other noBraingaze Other Start: 08-36-3159Iwdxlnf encounter procedureBenjamin BallGREYG [facility] Medical ClinicStart: 08-04-2023 End: 64-49-4730oykhfnwukvPsfpcytq Ball Other zlien Other Start: 42-34-5048Hslmzdzbz encounterBenjamin BallFPG [facility] Medical ClinicStart: 15-29-9521Odpdzwncx encounterBenjamin BallFPG [facility] ClinicStart: 06-05-2023 End: 06-51-4825qbfxvqbygiWOTQCR H [facility] CharlotteFarmLink [employer] Other Start: 05-30-2023 End: 13-87-7905tmugfjsxniHrhhdtpy Ball Other noBraingaze Other Start: 98-07-3643Biktrl outpatient visit 15 minutes [facility] ClinicStart: 05-01-2023 End: 44-34-4650ktdjhdbsprOybzrmll Ball Other noBraingaze Other Start: 70-32-2729Fpvomx outpatient visit 15 minutes [facility] ClinicStart: 00-46-9762Sejkhkwri encounterBenjajennifer [facility] Medical ClinicStart: 04-27-2023 End: 85-63-1249mkbxxfsrahMis/[place] Work Phone: Hematology/OncologyComment on above:Malignant neoplasm of prostate (HCC) (Primary Dx)Malignant neoplasm of prostate (HCC) (Primary Dx); 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 angina pectoris, unspecified vessel or lesion type; Essential hypertension; Type 2 diabetes mellitus without complication, without long-term current use of insulin (HCC)Start: 04-27-2023 End: 99-03-3806Wukgrnj encounter procedureChristo Howard APRN.CNP Work Phone: SANDUSKYStart: 04-25-2023 End: 32-91-3503yodsqdwwejBolmwgdu Ball Other zlien Other Start: 50-43-0922Flksdbafi encounterBenalfie Fall Medical ClinicStart: 04-18-2023 End: 33-80-8456xebsoruumiOydtvyrb Ball Other noBraingaze Other Start: 60-04-2109Crrbeahfd encounterBenalfie Fall Medical ClinicStart: 04-17-2023 End: 73-97-7867Oveyodt encounter procedureAnthony SCRUGGS [facility] start: 04-12-2023 End: 33-21-1186tcmvllftrnWhazgxlq Ball Other noBraingaze Other Start: 50-95-9638Lqhliolvj encounterBenjamin BallFPG [facility] ClinicStart: 04-06-2023 End: 90-20-4576gaydzbxjdvJslovolm Ball Other [employer]Braing[employer] Other Start: 47-90-8648Hwpssuqzz encounterBenjamin BallFPG [facility] ClinicStart: 04-05-2023 End: 20-69-6184ovonhxcszjMbpzovig Ball Other [employer]Bra[employer] Other Start: 97-16-2709Fiildn outpatient visit 15 minutes Jamar BallFPG [facility] ClinicStart: 13-09-7570Zirmyadne encounterBenjamin BallFPG [facility] ClinicStart: 03-15-2023 End: 58-03-6331kdkmgywxwmVecimjsf Ball Other [employer]Braing[employer] Other Start: 21-14-1554Hommon outpatient visit 25 minutes Jamar BallFPG [facility] ClinicStart: 02-05-2023 End: 92-64-1874sobmngqhlaDayldzfk Ball Other noBraingaze Other Start: 09-20-8695Daqxkbxbv encounterBenjamin BallFPG [facility] ClinicStart: 02-02-2023 End: 04-37-4041nwbuwydcupOtd/[place] Work Phone: Hematology/OncologyComment on above:Malignant neoplasm of prostate (HCC) (Primary Dx)Start: 02-02-2023 End: 41-50-9549Khkidpl encounter Jovan Esqueda MD Work Phone: SANDUSKYStart: 11-15-2022 End: 22-52-3866uqdczetugpYxpzmtmv Ball Other [employer]Braing[employer] Other Start: 91-52-7312Ulnyavngm by computer [facility] ClinicStart: 11-11-2022 End: 90-72-7759jiwqzrikflOygbtlhp Ball Other noBraing[employer] Other Start: 02-30-0309Mfokcxxbt by computer linkJamar Fall Medical ClinicStart: 11-10-2022 End: 86-74-5090yfiwbbsxtsDpv/[place] Work Phone: Hematology/OncologyComment on above:Malignant neoplasm of prostate (HCC) (Primary Dx)Malignant neoplasm of prostate (HCC) (Primary Dx); 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 angina pectoris, unspecified vessel or lesion type; Essential hypertension; Type 2 diabetes mellitus without complication, without long-term current use of insulin (HCC)Start: 11-10-2022 End: 95-86-6095Aqafurn encounter procedureChristo Howard APRN.CNP Work Phone: SANDUSKYStart: 10-25-2022 End: 33-43-6752yisxhyjlnrDI ANTHONY SCRUGGS .Facility:R3Kkvxa: 09-16-2022 End: 56-42-0692zdqzdpxiyeAntwvvde Ball Other noBraingaze Other Start: 67-57-0402Jhkobs outpatient visit 15 minutes Jamar [facility] ClinicStart: 09-09-2022 End: 21-86-6507bmatemnefaXpufcgie Ball Other noBraingaze Other Start: 50-70-9495Uxetjxs encounter procedureJamar Fall Medical ClinicStart: 09-05-2022 End: 54-91-3670tchinlsrdxAK NONE LISTED REQUESTFacility:Y0Blsxy: 08-11-2022 End: 04-82-9606lurnwqrescXsx/[place] Work Phone: Hematology/OncologyComment on above:Malignant neoplasm of prostate (HCC) (Primary Dx)Malignant neoplasm of prostate (HCC) (Primary Dx); Bone metastasis (HCC); 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 angina pectoris, unspecified vessel or lesion type; Essential hypertension; Type 2 diabetes mellitus without complication, without long-term current use of insulin (HCC)Start: 08-11-2022 End: 41-93-9484Ndzjbbd encounter procedureMarco A Esqueda MD Work Phone: SANDUSKYStart: 07-21-2022 End: 52-79-8584vjkkkxjfipPE [employer] Other Start: 75-20-6305Xrwpch outpatient visit 15 minutes Jamar Juan DavidThe [facility] ClinicStart: 63-74-3382Mehfjhw encounter procedure Jamar Juan DavidThe [facility]Health System ClinicStart: 13-34-3496Rygdnhknr encounterBenjajennifer [facility] ClinicStart: 05-27-2022 End: 42-61-0657xyjbcbdeksBL NONE LISTED REQUESTFacility:L2Akrml: 05-13-2022 End: 13-16-6367Owlbhxx encounter procedureAnthony SCRUGGS [facility] start: 05-12-2022 End: 98-55-6277Itgtyhx encounter procedureZach Khan MD Work Phone: Radiation OncologyComment on above:Malignant neoplasm of prostate (HCC) (Primary Dx)Start: 05-12-2022 End: 52-96-2702dtjdftvxzuRqx/[place] Work Phone: Hematology/OncologyComment on above:Malignant neoplasm of prostate (HCC) (Primary Dx)Start: 05-05-2022 End: 27-40-0515lhotjzqrpwSS ANTHONY SCRUGGS .Facility:A5Zlfkw: 05-02-2022 Telephone encounterChristo Howard APRN.CNP Work Phone: Hematology/OncologyComment on above:Lab OrdersStart: 04-27-2022 End: 91-63-7421ochkwhjjxcZTIBLZS BOESFacility:F4Vyjhh: 02-17-2022 End: 94-72-7861ezggattrezOjlxm R Murphy MD Work Phone: Hematology/OncologyComment on above:Malignant neoplasm of prostate (HCC) (Primary Dx); Bone metastasis (HCC)Start: 02-17-2022 End: 51-10-3113Qurkrus encounter Jovan Esqueda MD Work Phone: SANDUSKYStart: 01-25-2022 End: 76-07-3596pdhkynwvrtGC NONE LISTED REQUESTFacility:K5Cnmtx: 12-06-2021 Telephone encounterClementine Aguilar RN Work Phone: Hematology/OncologyComment on above:Care Coordination (Refill Question)Start: 11-18-2021 End: 38-27-8017ofkeglhcajHii/[place] Work Phone: Hematology/OncologyComment on above:Malignant neoplasm of prostate (HCC) (Primary Dx)Start: 11-11-2021 End: 81-46-7599eoyzjbfuyjPqbsiYoana Esqueda MD Work Phone: Hematology/OncologyComment on above:Malignant neoplasm of prostate (HCC) (Primary Dx); Bone metastasis (HCC)Start: 11-11-2021 End: 87-73-8663Qrywdyi encounter Jovan Esqueda MD Work Phone: SANDUSKYStart: 78-46-3822Vblorbwim encounterClementine Aguilar RN Work Phone: Hematology/OncologyComment on above:Care Coordination (Medication Update)Start: 07-25-7861Jihvuywxh encounterClementine Aguilar RN Work Phone: Hematology/OncologyComment on above:Care Coordination (Medication Start Date - Enzalutamide)Start: 11-08-2021 End: 64-14-4085Aleivhg encounter Magi SCRUGGS [facility] Armando start: 11-05-2021 End: 70-37-2826yyqxorjykkXO MARCO A ESQUEDAFacility:P8Hjyxd: 97-96-7653edswspjjnn Clementine Aguilar RN Work Phone: Hematology/OncologyComment on above:Oral Anti-cancer Agent Education (Enzalutamide)Start: 24-69-9937Qpwjtpvzi encounterAida Luo [facility] Work Phone: Hematology/OncologyComment on above:Medication Update (Xtandi free drug)Care Coordination (Covid Vaccine)Start: 86-38-6722Kujxubfrc encounterMarco A Esqueda MD Work Phone: Hematology/OncologyComment on above:Lab OrdersStart: 06-89-4847Htgwqzfpu encounterClementine Aguilar RN Work Phone: Hematology/OncologyComment on above:Care Coordination (Testosterone Results)Start: 65-00-6472Ffdatbquq encounterClementine Aguilar RN Work Phone: Hematology/OncologyComment on above:Medication Question (Lupron Start Date)Opened In ErrorMedication Authorization (Xtandi) Start: 34-03-1925Xzaon abstractingMarco A Esqueda MD Work Phone: Hematology/OncologyStart: 09-14-2922Cqrdpkdoh Gayatri Esqueda MD Work Phone: Hematology/OncologyComment on above:Lab OrdersStart: 27-53-7043Dbaqx health examinationBenjamin Ball Other Nort [employer] Other Procedures DateProcedureProcedure DetailPerforming ClinicianStart: 65-01-1849NAQAYREEVPV SKIN LESIONNatalie A Felter PASSENGER AGENT-MANAGER CLIENT Work Phone: Start: 37-02-6408IUGSIMOHGXA SKIN LESIONNatalie A Felter PASSENGER AGENT-MANAGER CLIENT Work Phone: Start: 68-91-0479RJCM / NAIL BIOPSYNatalie A Felter PASSENGER AGENT-MANAGER CLIENT Work Phone: Start: 43-26-0249Svozrolemjsrc of median nervePatrick [employer] Start: 14-10-0935OHH screeningDR JAMAR BALLComment on above:Performed By: #### PSAD #### [facility] [address] [place], [place] [address] Dr. Bharati AguiarStart: 60-77-6991TXT screeningDR JAMAR BALLComment on above: Performed By: #### PSAD ####[facility] [address] [place], [place] [address]CfDr. Bharati AguiarStart: 34-61-9242Pmpsq depression screening assessmentMarco A Esqueda MD Work Phone: Start: 73-92-9017Ilgai depression screening assessment Clementine Aguilar RN Work Phone: Start: 87-26-4556Tclcm depression screening assessment Marco A Esqueda MD Work Phone: Start: 28-15-6343Qcxjdshcgggpugpr procedureNcThe Rain[employer] Group Comment on above:Started on 01/2018 completed 03/30/18 Start: 47-11-2576SwylfxurvmVaeboff WATERS Start: 49-74-3739Tqbccfjbu for malignant neoplasm of colonJamar Fall Other Start: 21-27-4124Tbqlgju prostatectomyPaRazoomnataliya [employer] Start: 31-85-0094Ihl-surgery evaluationBenate Fall Other Start: 66-34-7121Jtiosjsaqlbn cardiovascular examinationBenate Fall Other Start: 37-53-5274Opepsfat artery bypass graftNcThe Rainmaker Group Start: 05-22-4030Rdijyiwdprz biopsy of prostate using ultrasound guidanceWerkadoo Start: 36-46-1310Qwfjjrsujb studiesPaThe Rainmaker Group Start: 71-17-8220VaemateqwjCwtmowf WATERS Start: 27-70-1351HhooccrenpDdufodc WATERS Start: 77-08-9219RazxfzjrezUfghsyj WATERS appendectomyWerkadoo ColonoscopyWerkadoo Depression screeningBenjamin Gigalo Other Plan of Treatment DateCare ActivityDetailAuthorStart: 03-44-9597Vearo microalbumin profile DTaP,Tdap,Td Vaccine (6 - Td or Tdap)[facility]: 66-93-1491Kgygbred ScreeningDiabetes ScreeningCleveland Clinic Lutheran Hospitaltart: 44-96-8032Sqwkmfnt Screening Diabetes ScreeningCleveland Clinic Lutheran Hospitaltart: 14-06-0657Zbydnygy ScreeningDiabetes ScreeningC[facility] Clinic Luther[facility] Hospitaltart: 64-04-9066Zzybptrm ScreeningDiabetes Screening [facility] Hospitaltart: 98-15-7931Udlqvjak ScreeningDiabetes ScreeningC[facility] Clinic Lutheran Hospitaltart: 02-26-2026 End: 80-86-5903Hrypvjv encounter maaglfksh90/13/2026 10:25 AM EDT Office Visit [facility] [address] [id number] Long Boo, PASSENGER AGENT-MANAGER CLIENT [address] [place] [address] [facility] DermatologyStart: 37-62-1311SHHDVXXY SCREENDIABETES SCREENCleveland Clinic Lutheran Hospitaltart: 11-10-2025 DIABETES SCREENDIABETES SCREENCleveland Clinic Lutheran Hospitaltart: 38-03-0542NXHBLIAR SCREEN DIABETES SCREENCleveland Clinic Lutheran Hospitaltart: 79-32-6778IOVMRIAQ SCREENDIABETES SCREEN [facility]tart: 84-15-8703Hrglvnwrv vaccinationInfluenza Vaccine (#1)NOM HealthcareStart: 02-25-2025 End: 28-75-1463Urobrmx encounter dcdorwvni33/12/2025 10:20 AM EDT Office Visit [facility] [address] [place], [id number] Long Boo, PASSENGER AGENT-MANAGER CLIENT [address] [place] [address] ArrivedNOMS HickeySan Miguel [facility] Comment on above:ArrivedStart: 36-00-4836VTYXGATL SCREENDIABETES SCREENCleveland Clinic Lutheran Hospitaltart: 59-68-5916STGWXXKV SCREENDIABETES [facility] Shawtart: 11-07-2024 End: 14-32-4898Ldhgaj-up encounterHematology/OncologyComment on above:3 month lab follow up with xgeva injStart: 11-06-2024 End: 32-08-8919OVP W Auto Differential panel - BloodCOMPLETE BLOOD COUNT AND DIFFERENTIAL Lab Routine Malignant neoplasm of prostate (HCC) Essential hyp ertension 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 angina pectoris, unspecified vessel or lesion type Type 2 diabetes mellitus without complication, without long-term current use of insulin (HCC) Expected: 11/06/2024, Expires: 02/05/2025[facility] [place] Work Phone: Comment on above:Expected: 11/06/2024, Expires: 02/05/2025Start: 11-06-2024 End: 76-09-5587Sahnuxztjmeyo metabolic 2000 panel - Serum or PlasmaCOMPREHENSIVE METABOLIC PANEL Lab Routine Malignant neoplasm of prostate (HCC) Essential hypertension 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 angina pectoris, unspecified vessel or lesion type Type 2 diabetes mellitus without complication, without long-term current use of insulin (HCC) Expected: 11/06/2024, Expires: 02/05/2025[facility] ClinicComment on above:Expected: 11/06/2024, Expires: 02/05/2025Start: 11-06-2024 End: 26-91-7621Yphpxlid specific Ag [Mass/volume] in Serum or PlasmaPROSTATE- SPECIFIC ANTIGEN DIAGNOSTIC Lab Routine Malignant neoplasm of prostate (HCC) Essential hypertension 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 angina pectoris, unspecified vesselor lesion type Type 2 diabetes mellitus without complication, without long-term current use of insulin (HCC) Expected: 11/06/2024, Expires: 02/05/2025leveland ClinicComment on above:Expected: 11/06/2024, Expires: 02/05/2025Start: 10-31-2024 End: 52-76-0106Crllraj encounter qalyoybwx39/17/2025 9:00 AM EDT Office Visit [facility] [address] [place] [address] labOur [facility] LaboratoryComment on above:labStart: 40-28-9354Vgxkm-19 Vaccine ()Covid-19 Vaccine ()[facility]: 08-08-2024 End: 93-03-8563Gfpdwp-up encounterHematology/OncologyComment on above:3 month lab follow up with xgeva injStart: 08-01-2024 End: 34-34-7496Szrfnxh encounter edisfqpkg22/16/2025 9:00 AM EST Office Visit [facility] [address] [place] [address] 3 month labsOur [facility] Comment on above:3 month labsStart: 53-59-7271Eyfqvmj Directive Discussion Advance Directive DiscussionCleveland Clinic Lutheran Hospitaltart: 05-09-2024 End: 70-57-8479Hqkzjt-up encounterHematology/OncologyComment on above:3 month lab follow up with xgeva injStart: 05-07-2024 End: 43-88-2605Iedbaou encounter cijvzswds95/22/2024 9:00 AM EDT Office Visit [facility] [address] [place] [address] 3 month lab follow up with xgeva injNortBeaumont Hospital LaboratoryComment on above:3 month lab follow up with xgeva inj Start: 05-03-2024 End: 50-66-1654Xwqxtzc encounter pongsbvza86/18/2024 9:00 AM EDT Office Visit [facility] [address] [place] [address] 3 month lab follow up with xgeva injNortBeaumont Hospital LaboratoryComment on above:3 month lab follow up with xgeva inj Start: 04-29-2024 End: 41-75-1884RDV W Auto Differential panel - BloodCOMPLETE BLOOD COUNT AND DIFFERENTIAL Lab Routine Malignant neoplasm of prostate (HCC) Expected: , Expires: 07/29/2024[facility] Work Phone: Comment on above:Expected: 04/29/2024, Expires: 07/29/2024Start: 04-29-2024 End: 54-08-3506Fhfftykemczwn metabolic 2000 panel - Serum or PlasmaCOMPREHENSIVE METABOLIC PANEL Lab Routine Malignant neoplasm of prostate (HCC) Expected: 04/29/2024, Expires: 07/29/2024leveland ClinicComment on above:Expected: 04/29/2024, Expires: 07/29/2024Start: 04-29-2024 End: 44-02-3588Yvdrcmdn specific Ag [Mass/volume] in Serum or PlasmaPROSTATE- SPECIFIC ANTIGEN DIAGNOSTIC Lab Routine Malignant neoplasm of prostate (HCC) Expected: 04/29/2024, Expires: 07/29/2024leveland ClinicComment on above: Expected: 04/29/2024, Expires: 07/29/2024Start: 55-00-9404Vgfnt-19 Vaccine ()Covid-19 Vaccine ()[facility]: 66-70-3679Lqxbuhksh vaccinationInfluenza Vaccine (#1)[facility] Hospitaltart: 02-26-2024 End: 87-19-3025Pfoodco encounter llvbgesgw36/12/2024 10:10 AM EDT Office Visit [facility] [address] [place] [address] Long Boo APRN-MANAGER CLIENT [address] [place] [address] [facility] DERMStart: 11-03-2023 End: 76-99-3542LGI W Auto Differential panel - BloodCOMPLETE BLOOD COUNT AND DIFFERENTIAL Lab Routine Malignant neoplasm of prostate (HCC) Essential hyp ertension 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 angina pectoris, unspecified vessel or lesion type Type 2 diabetes mellitus without complication, without long-term current use of insulin (HCC) Lesion of skin of right ear Abdominal discomfort Expected: 11/03/2023, Expires: 02/02/2024 [facility] Work Phone: Comment on above:Expected: 11/03/2023, Expires: 02/02/2024Start: 11-03-2023 End: 93-12-7273Smsmnpvbcercs metabolic 2000 panel - Serum or PlasmaCOMPREHENSIVE METABOLIC PANEL Lab Routine Malignant neoplasm of prostate (HCC) Essential hypertension 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 angina pectoris, unspecified vessel or lesion type Type 2 diabetes mellitus without complication, without long-term current use of insulin (HCC) Lesion of skin of right ear Abdominal discomfort Expected: 11/03/2023, Expires: 02/02/2024 [facility] Work Phone: Comment on above:Expected: 11/03/2023, Expires: 02/02/2024Start: 11-03-2023 End: 49-89-2408Pjfzvpew specific Ag [Mass/volume] in Serum or PlasmaPROSTATE- SPECIFIC ANTIGEN DIAGNOSTIC Lab Routine Malignant neoplasm of prostate (HCC) Essential hypertension 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 angina pectoris, unspecified vesselor lesion type Type 2 diabetes mellitus without complication, without long-term current use of insulin (HCC) Lesion of skin of right ear Abdominal discomfort Expected: 11/03/2023, Expires: 02/02/2024 [facility] Work Phone: Comment on above:Expected: 11/03/2023, Expires: 02/02/2024Start: 08-28-2023 End: 20-78-0056Xautwsf encounter vrxjjaqak57/12/2024 11:25 AM EST Office Visit [facility] [address] [place] [address] 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 [address] [place] [address] ArrivedNOMS SWS DERMComment on above: ArrivedStart: 07-28-2023 End: 63-72-0156HPF W Auto Differential panel - BloodCBC + DIFF Lab Routine Malignant neoplasm of prostate (HCC) 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 angina pectoris, unspecified vessel or lesion type Essential hypertension Type 2 diabetes mellitus without complication, without long-term current use of insulin (HCC) Expected: 07/28/2023, Expires: 09/27/2023[facility] Work Phone: Comment on above:Expected: 07/28/2023, Expires: 09/27/2023Start: 07-28-2023 End: 44-80-2775Vtiguuwgwjdtn metabolic 2000 panel - Serum or PlasmaCOMP METABOLIC PANEL Lab Routine Malignant neoplasm of prostate (HCC) 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 angina pectoris, unspecified vessel or lesion type Essential hypertension Type 2 diabetes mellitus without complication, without long-term current use of insulin (HCC) Expected: 07/28/2023, Expires: 09/27/2023[facility] Work Phone: Comment on above:Expected: 07/28/2023, Expires: 09/27/2023Start: 07-28-2023 End: 00-71-5182Snppexkt specific Ag [Mass/volume] in Serum or Plasma PSA/PROSTSPECAG DIAG Lab Routine Malignant neoplasm of prostate (HCC) 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 angina pectoris, unspecified vessel or lesion type Essential hypertension Type 2 diabetes mellitus without complication, without long-term current use of insulin (HCC) Expected: 07/28/2023, Expires: 09/27/2023[facility] Work Phone: Comment on above:Expected: 07/28/2023, Expires: 09/27/2023Start: 92-03-7822Wexicyk Directive DiscussionAdvance Directive DiscussionCleveland Clinic Lutheran Hospitaltart: 00-44-6939Rbyoxedtqh Health ScreeningBehavioral Health ScreeningCleveland Clinic Lutheran Hospitaltart: 12-90-4702Ttocn microalbumin profile [facility]: 05-03-2023 End: 02-53-3993Fjjah metabolic 2000 panel - Serum or PlasmaBASIC METABOLIC PNL Lab Routine Malignant neoplasm of prostate (HCC) Expected: 05/03/2023 (Approxima te), Expires: 07/03/2023[facility] Work Phone: Comment on above:Expected: 05/03/2023 (Approximate), Expires: 07/03/2023Start: 05-03-2023 End: 84-16-7758NUI W Auto Differential panel - BloodCBC + DIFF Lab Routine Malignant neoplasm of prostate (HCC) Expected: 05/03/2023 (Approximate), Expi res: 07/03/2023[facility] Work Phone: Comment on above:Expected: 05/03/2023 (Approximate), Expires: 07/03/2023Start: 05-03-2023 End: 51-51-5937Vivihcup specific Ag [Mass/volume] in Serum or Plasma PSA/PROSTSPECAG DIAG Lab Routine Malignant neoplasm of prostate (HCC) Expected: 05/03/2023 (Approximate), Expires: 07/03/2023[facility] Work Phone: Comment on above:Expected: 05/03/2023 (Approximate), Expires: 07/03/2023Start: 05-03-2023 End: 01-66-6219Xqaeywhngzes [Mass/volume] in Serum or PlasmaTESTOSTERONE TOTAL Lab Routine Malignant neoplasm of prostate (HCC) Expected: 05/03/2023 (Approximate), Expires: 07/03/2023[facility] Work Phone: Comment on above:Expected: 05/03/2023 (Approximate), Expires: 07/03/2023Start: 40-35-4208Offck-19 Vaccine ()Covid- 19 Vaccine ()[facility]: 52-88-7091Niyirjjez vaccinationCleveland Clinic Lutheran Hospitaltart: 29-52-7035Hipef depression screening assessmentDEPRESSION SCREENINGCleveland Clinic Lutheran Hospitaltart: 02-09-2023 End: 94-73-3883AUF W Auto Differential panel - BloodCBC + DIFF Lab Routine Malignant neoplasm of prostate (HCC) 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 angina pectoris, unspecified vessel or lesion type Essential hypertension Type 2 diabetes mellitus without complication, without long-term current use of insulin (HCC) Expected: 02/09/2023, Expires: 04/11/2023[facility] Work Phone: Comment on above:Expected: 02/09/2023, Expires: 04/11/2023Start: 02-09-2023 End: 72-94-7883Cxwtlyiclagld metabolic 2000 panel - Serum or PlasmaCOMP METABOLIC PANEL Lab Routine Malignant neoplasm of prostate (HCC) 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 angina pectoris, unspecified vessel or lesion type Essential hypertension Type 2 diabetes mellitus without complication, without long-term current use of insulin (HCC) Expected: 02/09/2023, Expires: 04/11/2023[facility] Work Phone: Comment on above:Expected: 02/09/2023, Expires: 04/11/2023Start: 02-09-2023 End: 24-43-4800Oiwyavsv specific Ag [Mass/volume] in Serum or Plasma PSA/PROSTSPECAG DIAG Lab Routine Malignant neoplasm of prostate (HCC) 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 angina pectoris, unspecified vessel or lesion type Essential hypertension Type 2 diabetes mellitus without complication, without long-term current use of insulin (HCC) Expected: 02/09/2023, Expires: 04/11/2023[facility] Work Phone: Comment on above:Expected: 02/09/2023, Expires: 04/11/2023Start: 92-34-0216Srggs depression screening assessmentDEPRESSION SCREENINGCleveland Clinic Lutheran Hospitaltart: 83-63-8288LABUH-19 VACCINE (6 - Moderna series) COVID-19 VACCINE (6 - Moderna series)[facility]: 73-21-5766JPOPHER DIRECTIVE DISCUSSIONADVANCE DIRECTIVE DISCUSSIONCleveland Clinic Lutheran Hospitaltart: 69-41-6016VNCLLRPTNF ASSESSMENTDEPRESSION ASSESSMENTCleveland Clinic Luther[facility] Hospitaltart: 54-16-1005Dqxxj depression screening assessmentDEPRESSION SCREENINGCleveland Clinic Luther[facility] Hospitaltart: 05-03-2022 End: 73-24-1608ACI W Auto Differential panel - BloodCBC + DIFF Lab Routine Malignant neoplasm of prostate (HCC) Expected: 05/03/2022, Expires: 07/03/2022 [facility] Work Phone: Comment on above:Expected: 05/03/2022, Expires: 07/03/2022tart: 05-03-2022 End: 36-22-3823Vsskpaycuywth metabolic 2000 panel - Serum or PlasmaCOMP METABOLIC PANEL Lab Routine Malignant neoplasm of prostate (HCC) Expected: 05/03/2022, Expires: 07/03/2022[facility] Work Phone: Comment on above:Expected: 05/03/2022, Expires: 07/03/2022tart: 05-03-2022 End: 59-88-7058Oowrrudx specific Ag [Mass/volume] in Serum or Plasma PSA/PROSTSPECAG DIAG Lab Routine Malignant neoplasm of prostate (HCC) Expected: 05/03/2022, Expires: 07/03/2022[facility] Work Phone: Comment on above:Expected: 05/03/2022, Expires: 07/03/2022tart: 92-80-8789Pqhzbgnze vaccinationCleveland Clinic Lutheran Hospitaltart: 11-02-2021 End: 67-97-1983SXZ W Auto Differential panel - BloodCBC + DIFF Lab Routine Malignant neoplasm of prostate (HCC) Expected: 11/02/2021, Expires: 01/02/2022 [facility] Work Phone: Comment on above:Expected: 11/02/2021, Expires: 01/02/2022tart: 11-02-2021 End: 80-49-7759Ksernjlhiwpau metabolic 2000 panel - Serum or PlasmaCOMP METABOLIC PANEL Lab Routine Malignant neoplasm of prostate (HCC) Expected: 11/02/2021, Expires: 01/02/2022[facility] Work Phone: Comment on above:Expected: 11/02/2021, Expires: 01/02/2022tart: 71-79-6140OXIED-19 VACCINE (5 - Booster)COVID-19 VACCINE (5 - Booster)[facility]: 13-91-0765SFMIU-19 VACCINE (4 - Booster for Moderna series)COVID-19 VACCINE (4 - Booster for Moderna series)[facility] Start: 93-63-5605FVYBQZZ DIRECTIVE DISCUSSIONADVANCE DIRECTIVE DISCUSSION [facility]: 20-97-9124KGKZXKUOEJ ASSESSMENTDEPRESSION ASSESSMENT [facility]: 46-59-1945RSXPB-19 VACCINE (3 - Booster for Moderna series)COVID-19 VACCINE (3 - Booster for Moderna series)[facility]: 82-74-6597SQMAKWPAW AGE 65 AND OVER WITH 5YR LOOKBACK (#1)PNEUMOVAX AGE 65 AND OVER WITH 5YR LOOKBACK (#1)[facility]: 80-43-3778Tbhft microalbumin profileDTAP,TDAP,TD (1 - Tdap)[facility]: 13-80-3448HITWBGTK VACCINE (2 of 3)SHINGRIX VACCINE (2 of 3)[facility]: 47-57-2989ZNW Vaccine (1 - 1-dose 60+ series)RSV Vaccine (1 - 1-dose 60+ series)[facility]: 96-83-4798MOFDJQIF VACCINE (1 of 2)SHINGRIX VACCINE (1 of 2)[facility] Start: 20-79-2581FDIEIJAHU (FIT-DNA)COLOGUARD (FIT-DNA)[facility]: 64-39-0810YfguhayjbaeQSWIRYNCXAJWxjotosgl ClinicStart: 17-07-9671CXIPRVZUQA CANCER SCREENINGCOLORECTAL CANCER SCREENINGC[facility] Clinic Luther[facility] Hospitaltart: 49-13-2303WV COLONOGRAPHYCT COLONOGRAPHYCleveland Clinic Luther[facility] Hospitaltart: 34-94-5009BKAWQZGT SCREEN DIABETES SCREENCleveland Clinic Lutheran Hospitaltart: 44-77-2318QALYH OCCULT BLOODFECAL OCCULT BLOODCleveland Clinic Luther[facility] Hospitaltart: 52-22-3603KWRBTZNLRMYUNXSZTORJZOBCTPJxgcryzuf Clinic Start: 36-04-9684JAUIE SCREENLIPID SCREENCleveland Clinic Lutheran Hospitaltart: 02-14-1963 Anxiety ScreeningAnxiety ScreeningCleveland Clinic Luther[facility] Hospitaltart: 13-66-4248Xcctlxwkxc ScreeningDepression ScreeningCleveland Clinic Luther[facility] Hospitaltart: 16-91-8453REWJWCFWO C SCREENINGHEPATITIS C SCREENINGC[facility] Clinic Luther[facility] Hospitaltart: 41-38-9949Uqilsjjja C screeningHepatitis C ScreeningSelect [facility], IncDermatopathology exam Dermatopathology exam Pathology and Cytology Timed Neoplasm of unspecified behavior of bone, soft tissue, and skin Release Upon Ordering for 1 Occurrences starting 08/28/2023[facility] Work Phone: comment on above:Release Upon Ordering for 1 Occurrences starting 08/28/2023MR Cervical spine WO contrastSt. Mary'S Medical CenterUS ExtremityHendersonville Medical Center Immunizations Immunization DateImmunizationNotesCare YmgulxdvYwzzyabw04-54-1726ysgfwjqpq, high dose seasonal, preservative-freeBenjamin Ball DO Work Phone: [facility]10-11-2024COVID-19 (MODERNA) 12Y and olderBenjamin Ball DO Work Phone: [facility]10-11-2024RSV, bv, preFa and preFb, pfBenjamin Ball DO Work Phone: [facility]10-10-2024tetanus toxoid, reduced diphtheria toxoid, and acellular pertussis vaccine, adsorbed Jamar Ball DO Work Phone: [facility]09-10-2024influenza, high dose seasonal, preservative-freeSt. 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 [facility]'S [facility] Center10-16-2023influenza, high dose seasonal, preservative-freeBenjamin Juan David Other [facility], IncJrloly45-58-3893nksxptzcm nasal, unspecified formulationLab/[facility] [place] Work Phone: [facility], IncSrzkac72-45-1650ozmmqoaqt, high-dose, quadrivalent vaccine (FLUZONE HIGH DOSE QUADRIVALENT)Lab/[facility] Work Phone: [facility], IncDxlesq57-58-1430gmponiabu, high dose seasonal, preservative-freeBenjamin Ball Other [facility], IncQekqmg07-46-5041teceyqsnx virus vaccine, unspecified formulationLab/[facility] Work Phone: [facility]10-06-2022COVID-19 booster vaccine, age 12+ yr, bivalent (MODERNA) Lab/[facility] Work Phone: [facility], IncComment on above:Result Comment: 2023-10-20: ZPU3483-11-6141ZRTFV-78 Vaccine Moderna - Documentation Purposes OnlyBenjamin Juan David Other [facility], IncComment on above:Result Comment: 2023-10-20: PDG9326-16-4896IUBEE-09 Vaccine Moderna - Documentation Purposes OnlyBenjamin Ball Other [facility], IncComment on above:Result Comment: 2023-10-20: NNY5604-58-9442echarwgrw virus vaccine, split virus (incl. purified surface antigen)Jamar Fall Other [facility], IncUoqbon06-74-1954eqiuwhyax virus vaccine, unspecified formulationSt. [facility]10-01-2021influenza nasal, unspecified formulationMarco A Esqueda MD Work Phone: [facility], IncMhzpnq69-04-3027nmpxnfxwc virus vaccine, unspecified formulationWerkadoo [facility] [id number]-72 Vaccine Moderna - Documentation Purposes OnlyBencelsojennifer Fall Other [facility], IncSzbtvx05-99-9534DHAV-HhW-8 (COVID-19) Ad26 vaccine, recombinantWerkadoo [facility] [id number]-08 original vaccine, full dose, monovalent (MODERNA)Lab/[facility] Work Phone: [facility], IncYphjdm37-12-4644QAFS-HiC-7 (COVID-19) mRNA- 1273 vaccinePaThe Rainmaker Group [facility] comment on above:Result Comment: pt does not know the dates but states that he is fully ojbjrmxhth22-98-7135mygdaozsh virus vaccine, split virus (incl. purified surface antigen)Jamar Juan David Other [facility], IncYaxfux49-68-6157hpkfhyjon virus vaccine, unspecified formulationSt. [facility] Center10-07-2019influenza virus vaccine, split virus (incl. purified surface antigen)Jamar Fall Other [facility], IncBuouas91-08-2338fzabrjccr virus vaccine, unspecified formulationSt. [facility]'S Medical Center10-01-2019influenza nasal, unspecified formulationMarco A Esqueda MD Work Phone: [facility], IncBlpihe39-57-4180ejhfqi vaccine daly Esqueda MD Work Phone: [facility], IncOovoun58-56-7343hbxufk vaccine recombinant Marco A Esqueda MD Work Phone: [facility], IncNfhojh04-03-8715hhhvmvgfc nasal, unspecified formulationMarco A Esqueda MD Work Phone: [facility], IncJtninj73-37-2980DL58 adjuvantLab/[facility] [place] Work Phone: [facility], IncLqelyl57-60-9459imhayzoam nasal, unspecified formulationLab/[facility] [place] Work Phone: [facility], IncDxmwec36-41-4996uyfsfwuux virus vaccine, split virus (incl. purified surface antigen)Jamar Fall Other [facility] [employer] Other [id number] virus vaccine, unspecified formulationPatricQualtré [facility]09-11-2018Seasonal trivalent influenza vaccine, adjuvanted, preservative Ginny Esqueda MD Work Phone: [facility], IncOjzysc74-17-7290ubebedokzdkd polysaccharide vaccine, 23 valHubert Esqueda MD Work Phone: [facility], IncUouuuu84-76-5856slmyceohjstx polysaccharide vaccine, 23 valentBenalfie Fall Other [facility], IncIipyql94-56-0934Tzzslzt 20Benjajennifer Fall Other [facility]11-15-2017influenza nasal, unspecified formulationLab/[facility] [place] Work Phone: [facility], IncEruniq83-59-2655mxwcfxxtg virus vaccine, unspecified formulationPatrick BodeTree [facility]11-15-2017influenza, injectable, quadrivalent, preservative Ginny Esqueda MD Work Phone: [facility], IncSrtlkw59-39-9566feglpmcbg nasal, unspecified formulationLab/[facility] [place] Work Phone: [facility], IncWavmds94-82-4817wybvxdary virus vaccine, split virus (incl. purified surface antigen)Jamar Fall Other [facility] [employer] Other 0734102-35-9275ibodlsjtk virus vaccine, unspecified formulationPatiffanynataliya SCRUGGS [facility] Jfzujavs87-58-8572htvbyvlgn, high dose seasonal, preservative-Ginny Esqueda MD Work Phone: [facility], IncUxeeqz55-37-6126rypoqpdjm nasal, unspecified formulationMarco A Esqueda MD Work Phone: [facility], IncTqiiai16-55-0785ixqkxpkiv virus vaccine, split virus (incl. purified surface antigen)Jamar Fall Other [facility], IncMulpje17-26-5073fvnyzokzq virus vaccine, unspecified formulationSt. [facility]09-15-2016influenza nasal, unspecified formulationMarco A Esqueda MD Work Phone: [facility], IncYkowtn53-27-2555ohkxaiwps nasal, unspecified formulationMarco A Esqueda MD Work Phone: [facility], IncRqbfjq69-10-6288exgufubof, seasonal, injectable, preservative freeLab/[facility] [place] Work Phone: [facility], IncHfveta32-73-7589olflibnywudg conjugate vaccine, 13 Janis Esqueda MD Work Phone: [facility], IncBtoqqb03-62-6656euxizjfgwdwh polysaccharide vaccine, 23 Janis Esqueda MD Work Phone: [facility], IncMipiny92-30-0804ffxhdksgq nasal, unspecified formulationLab/[place] Work Phone: [facility], IncMqgdgf44-75-3553sqcwnsvns, seasonal, injectable, preservative Ginny Esqueda MD Work Phone: [facility], IncNqesyo31-49-7961vwefkbslci, tetanus toxoids and acellular pertussis vaccine, unspecified formulationMarco A Esqueda MD Work Phone: [facility], IncIndaui75-52-4673dcwdrnx and diphtheria toxoids, not adsorbed, for adult useMarco A Esqueda MD Work Phone: [facility], IncDwhnvy51-25-2852eavnzuxed nasal, unspecified formulationMarco A Esqueda MD Work Phone: [facility], IncTrhfcv74-61-8639yrpyhyj and diphtheria toxoids, adsorbed, preservative free, for adult use (5 Lf of tetanus toxoid and 2 Lf of diphtheria toxoid)Jamar Fall Other [facility], IncNngxpb23-09-5763fjtbik vaccine, liveMarco A Esqueda MD Work Phone: [facility], IncJsvkmb67-18-2577oqvyobmuf nasal, unspecified formulationMarco A Esqueda MD Work Phone: [facility], IncTazkww44-49-4763qlqeajsyz nasal, unspecified formulationMarco A Esqueda MD Work Phone: [facility], IncXfgbji17-51-5585nqlulfsywzau polysaccharide vaccine, 23 valentBenjamin Ball Other [facility], IncFknfwf08-77-2698discixsllrty polysaccharide vaccine, 23 valHubert Esqueda MD Work Phone: [facility], IncTmmwlf93-72-9651rkxdtzziuaqi vaccine, unspecified formulationMarco A Esqueda MD Work Phone: [facility], IncTougcp76-36-3337epekntttn nasal, unspecified formulationMarco A Esqueda MD Work Phone: [facility], IncBudfzn67-31-4799sermpjbbiaen polysaccharide vaccine, 23 valentBenjamin Ball Other [facility], IncUjcidf79-82-9027grnuljbrc nasal, unspecified formulationMarco A Esqueda MD Work Phone: [facility] IncDpfhor17-02-9213mieteovkd nasal, unspecified formulationMarco A Esqueda MD Work Phone: [facility], IncYoyakx16-74-6742aqsqozlhr virus vaccine, whole virusMarco A Esqueda MD Work Phone: [facility], IncNcogrl41-55-9756kjmfawdwzn, tetanus toxoids and acellular pertussis vaccine, unspecified formulationBenalfie Fall Other [facility], IncIyvadw22-35-7277KT(adult) unspecified formulationMarco A Esqueda MD Work Phone: [facility], IncAggein85-90-8931bclevsumg nasal, unspecified formulationMarco A Esqueda MD Work Phone: [facility] Payers DatePayer CategoryPayerPolicy [id number] MMO MEDICARE SUPPLEMENT [id number] 2019-Present [phone] [address] [place] [address] [id number]Oftvehx 1.2.840.790340.1.13.159.2.7.3.328887.00306-12-6503Tkcfjol Health Insurance [id number] 2011MedicareMEDICARE MEDICARE A AND B [id number] 2011-Present [phone] [address] [address] [place] [address] [id number] 2011Medicare [id number] [id number] 2.16.840.6.619370.83158341-54-7172Ayit-[id number] 2.16.840.3.14878[id number] 2.16.840.1.266557.3.5[id number] 2.16840.1.619941.3.57[id number] 2.16840.1.143475.3.57[id number] 2.840.1.354044.3.57[id number] 2.16840.1.210824.3.57[id number] 2.840.1.337861.3.57[id number] 2..1.510912.3.57[id number] 2.840.1.407313.3.57[id number] 2.840.1.853939.3.57[id number] 2.840.1.091004.3.57[id number] 2..1.920985.3.57[id number] 2.840.1.274630.3.57[id number] 2.840.1.681850.3.57[id number] 2.840.1.187723.3.57[id number] 2.840.1.592634.3.57[id number] 2.16.840.1.592081.3.57[id number] 2..840.1.129967.3.57[id number] 2.16.840.1.2[id number] 2.16.840.1.614993.3.579.2.593Unknown [id number] 2.16.840.1.0[id number] 2.840.1.553863.3.579.2.593 Social History DateTypeDetailFacilityStart: 11-08-2021 End: 47-12-3394Xokaopi smoking status NHISNever smoked tobaccoSelect Medical Specialty Hospital [facility], Inc Start: 10-25-2021 End: 03-12-0435Ouxkbem intakeCurrent drinker of alcohol (finding)[facility]: 93-53-1347Jrknuyk SDOH Alcohol Comment1 day/wkSelect Medical Specialty Hospital [facility], Inc Start: 09-84-2499Rjc Assigned At BirthNot on fileCleveland Clinic Lutheran Hospitaltart: 10-18-2021 End: 25-41-4442Mworiion to SARS-CoV-2 (event)Not sureSelect Medical Specialty Hospital [facility], IncTobacco smoking statusNeverExec[facility] start: 02-02-2023 End: 38-53-1468Fkf Assigned At [facility] HospitalMaleExec[facility] start: 67-85-4854Vku Assigned At [facility] NHRMCeCselect [facility] ClinicStart: 01-12-2018 End: 51-99-0283Mgwngfi use and exposureSmokeless tobacco non-userC[facility] Clinic Luther[facility] Hospitaltart: 02-02-2023 End: 48-79-5353Ibyxojg of Social functionCleveland Clinic Lutheran Hospitaltart: 12-25-9607Wgcvxy identityIdentifies as male gender (finding)[facility]: 02-11-2022 Sexual orientationHeterosexual (finding)[facility] IncHow often to you have a drink containing alcohol?2-3 time sa weekNOMS HealthcareHow many standard drinks containing alcohol do you have on a typical day?1 or 2NOMS HealthcareHow often do you have 6 or more drinks on 1 occasion?NeverNOAK HealthcareStart: 06-04-2023 Alcohol Commentcaffeine intake: more than 4 cups per dayNOAK HealthcareStart: 09-06-2023 End: 10-95-5003Uttaycr smoking status NHISEx-smoker (finding)[facility]: 07-[facility]2014 End: 87-47-5048VkyLwnr (finding)[facility] Hospitalexual OrientationExecutive Urology of [facility] NEGATED: Highlighted rowStart: NINFHistory of tobacco usePassive smokerSelect Medical Specialty Hospital - [facility], Inc Medical Equipment Procedure CodeEquipment CodeEquipment Original TextEquipment IdentifierDates Start: 10-26-2021 End: 76-18-4116Lpmdvww on above:1 Each once daily. To test blood sugars1 Each once daily. To test blood sugarBlood Sugar Diagnostic (Contour Next Test Strips) stripStart: 26-39-0924Zxxjyuf (Lancets,Thin) miscStart: 27-83-8747Eeeja Sugar Diagnostic (Contour Next Test Strips) stripStart: 09-08-2023 End: 01-88-1523Owxre Sugar Diagnostic (Contour Next Test Strips) stripStart: 63-20-3741Znqvkxi (Lancets,Thin) miscStart: 03-37-0547Ruoun Sugar Diagnostic (Contour Next Test Strips) stripStart: 09-08-2023 End: 13-62-1208Ftbfr Sugar Diagnostic (Contour Next Test Strips) stripStart: 91-37-4750Xgpcbih (Lancets,Thin) miscStart: 71-15-6392Pdvqr Sugar Diagnostic (Contour Next Test Strips) stripStart: 09-08-2023 End: 41-55-0286Yxkbc Sugar Diagnostic (Contour Next Test Strips) stripStart: 07-03-4333Ywpqlrz (Lancets,Thin) miscStart: 38-33-8159Dmqti Sugar Diagnostic (Contour Next Test Strips) stripStart: 09-08-2023 End: 10-10-2023 Functional Status VpzwNinvffhnerFykpozTjnqlave83-79-9068Fhkyngbxyd StatusN/AExecutive Urology of [facility]04-05-2024Functional StatusN/AExec[facility] of [facility]10-02-2023Functional StatusN/A [facility]10-28-2022Functional StatusN/AExec[facility]rology of [facility]02-03-2015Are you deaf, or do you have serious difficulty hearingNo 08/19/2014 10:35 AM Santiago Mills LPN [facility]Lyqabn07-16-4660Ayx you blind, or do you have serious difficulty seeing, even when wearing glassesYes 08/19/2014 10:35 AM Santiago Mills LPN YesSelect Medical Specialty Hospital [facility], IncBvsgev22-89-4888Gp you have serious difficulty walking or climbing stairsNo 08/19/2014 10:35 AM Santiago Mills LPN [facility]02-03-2015Do you have difficulty dressing or bathingNo 08/19/2014 10:35 AM Santiago Mills LPN [facility] [id number] of a physical, mental, or emotional condition, do you have difficulty doing errands alone such as visiting a physician's office or shopping No 08/19/2014 10:35 AM Santiago Mills LPN [facility] Mental Status ErwjRcxbciokbePspiyoRawkzcwc30-43-2517Tbnthok of a physical, mental, or emotional condition, do you have serious difficulty concentrating, remembering, or making decisionsNo 08/19/2014 10:35 AM Santiago Mills LPN No [facility] Clinical Notes 07-17-2014 to 05-22-2025 Note Date & [id number] NoteHNO ID: [id number] Author: CHARY SHERMAN APRN.MANAGER CLIENT Service: ? Author Type: Nurse Practitioner Type: Progress Notes Filed: 05/22/2025 15:33 Note Text: NAME: Pablo Felix CLINIC NO.: [id number] DATE OF SERVICE: May 22, 2025 (Naveen) Some elements in this clinic note that are critical to medical decision making have been carefully reviewed and included from a prior clinic note dated: February 20, 2025 (Denice) Referring Provider: RADHA Additional Clinicians involved in Pablo Felix's care: Dr. Jamar Fall, Dr. Anthony Scruggs, Dr. 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 Stable on current medications. Continue per [...] HISTORY: Reverse Chronological Order 11/05/2021 CT chest/abdomen/pelvis ([facility]) Several sclerotic lesions consi (more content not included)...[facility]09-21-2025 NotePlease let him know his [...] of his shortness of breath. Thanks![facility] Hospital Discharge instructions Patient Education 03/31/2025 10:32:10 [...] advanced cancer. Where to find more information [place] [employer]: www.cancer.org National Cancer [place]: www.cancer.gov Contact a health care provider if: [...] provider. Document Revised: 10/14/2021 Document Reviewed: 10/14/2021 Flurry Patient Education 2023 [employer]. Follow Up Care 10/07/2024 10:02:12 With:KAEL JAMES, Anthony Lee, URL Address: [address] [place] [address] When: Unknown Comments:6 mos w/ Yonis KHAN [facility] 09-15-2025 NotePatient Education Oncology Hormone Suppression [...] cancer. Where to find more information ??? [place] [employer]: www.cancer.org ??? National Cancer [place]: www.cancer.gov Contact a health care provider if: [...] are confused. ??? You (more content not included)...[facility]09-04-2025 Note Cardiovascular Medicine [facility] SUBJECTIVE Chief Complaint Patient presents with Coronary Artery Disease Denies chest pain and SOB. No recent testing. Valve Disorder Denies lightheadedness and palpitations. Hypertension Had labs in January 2025. Hyperlipidemia No recent lipid panel. [place] one [place] about a year ago. Pablo Felix is [...] graft without angina Coronary artery disease involving [place] coronary artery of [place] heart without ang (more content not included)...[facility]08-12-2025 History of Present illness Narrative* Long Boo, ROCHELLE-MANAGER CLIENT - 02/25/2025 10:20 AM EDT Skin Check [...] Left Posterior Neck, Left Preauricular Area, Left Scientology, Left Temporal Scalp, Right Forehead, Right Parotid Area, Right [place] (2) Erythematous scaly papules Patient was counseled [...] limited to risks of scarring, darker or financial aids officer pigmentary changes, recurrence, incomplete removal and infection. [...] Left Posterior Neck, Left Preauricular Area, Left Scientology, Left Temporal Scalp, Right Forehead, Right Parotid Area, Right [place] (2) Related Medications fluorouracil (Efudex) 5 % [...] (SQUAMOUS CELL CARCINOMA) OF SKIN Right [place] No evidence of recurrence at SCC scar. [...] year, skin check documented in this encounterSaint Joseph Hospital of KirkwoodOlhekgeene92-17-9702 NoteHNO ID: [id number] Author: SAUL TRACEY MD Service: ? Author Type: Physician Type: Progress Notes Filed: 02/20/2025 10:48 Note Text: NAME: Pablo Felix CLINIC NO.: [id number] DATE OF SERVICE: February 20, 2025 (Denice) Some elements in this clinic note that are critical to medical decision making have been carefully reviewed and included from a prior clinic note dated: 11/07/2024 (Dheeraj) Referring Provider: RADHA Additional Clinicians involved in Pablo Felix's care: Dr. Jamar Fall, Dr. Anthony Scruggs, Dr. Khan, [facility] Cardiology DIAGNOSIS: Metastatic prostate cancer CASE SUMMARY / ASSESSMENT: 80 year old man with. 1. Metastatic prostate cancer (HCC) - ICD9: 185, ICD10: C61 (primary diagnosis) The patient was diagnosed with early-stage high-grade prostate cancer in June 2014 (TRUS biopsy 07/02/2014). He underwent a radical prostatectomy on 11/05/2014. Pathology consistent with stage IIIC (pT2b, N0, M0), [place] 5+4 equal 9. 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 Stable on current medications. Continue per [...] injections. - Continue current (more content not included)...[facility] 11-06-2024 NoteHNO ID: [id number] Author: MARCO A ESQUEDA MD Service: ? Author Type: Physician Type: Progress Notes Filed: 11/07/2024 14:08 Note Text: PATIENT NAME: Pablo Felix DATE: 11/07/2024 PRIMARY CARE PHYSICIAN: Dr. Jamar Fall OTHER PHYSICIANS: Dr. Anthony Scruggs, Dr. Khan, [facility] Cardiology Portions of this encounter note [...] mg 24 hr tablet Take by mouth. 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 [...] 1.58 10/25/2021 2.64 12/15 (more content not included)...[facility]03-24-2025 Note Patient Education Oncology Hormone [...] cancer. Where to find more information ??? [place] [employer]: www.cancer.org ??? National Cancer [place]: www.cancer.gov Contact a health care provider if: [...] are confused. ??? You (more content not included)...[facility]01-22-2025 Note HNO ID: [id number] Author: CHRISTO HOWARD APRN.MANAGER CLIENT Service: ? Author Type: Nurse Practitioner Type: Progress Notes Filed: 08/08/2024 12:09 Note Text: PATIENT NAME: Pablo Felix DATE: 08/08/2024 PRIMARY CARE PHYSICIAN: Dr. Jamar Fall OTHER PHYSICIANS: Dr. Anthony Scruggs, Dr. Khan, [facility] Cardiology Portions of this encounter note [...] mg 24 hr tablet Take by mouth. 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 [...] 07/19/2021 1.58 10/25/2021 2.6 (more content not included)...[facility]01-22-2025 History of Present illness Narrative* Christo Howard, ROCHELLE.MANAGER CLIENT - 08/07/2024 10:42 AM EST PATIENT NAME: Pablo Felix DATE: 08/08/2024 PRIMARY CARE PHYSICIAN: Dr. Jamar Fall OTHER PHYSICIANS: Dr. Anthony Scruggs, Dr. Khan, [facility] Cardiology Portions of this encounter note [...] mg 24 hr tablet Take by mouth. 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 [...] RADIOLOGY/OTHER STUDIES: 11/05/2021 CT chest/abdomen/pelvis ([facility]) Several sclerotic lesions consistent with metastatic disease. No evidence of visceral organ involvement or lymphadenopathy. 11/05/2021 Bone scan ([facility]) Multifocal osseous metastasis including the left femur at the lesser trochanter, right pubis symphysis, multiple ribs bilaterally. 01/22/2018 Nuclear bone scan ([facility]) New focal increased activity left frontal bone, left T8 vertebral body. 01/22/2018 MRI pelvis ([facility]) 4.5 cm area of T2 signal in the prostate bed. 07/24/2014 CT abdomen/pelvis ([facility] Diffuse prostatic enlargement with indentation of the bladder base. Incidental 2.5 x 1 cm exophytic hypodense lesion adjacent to the pancreatic body. ASSESSMENT/PLAN: 1. Metastatic prostate cancer (HCC) - ICD9: 185, ICD10: C61 (primary diagnosis) The patient was diagnosed with early-stage high-grade prostate cancer in June 2014 (TRUS jisbbo1507/02/2014). He underwent a radical prostatectomy on 11/05/2014. [...] ICD10: I25.10 Status post CABG 08/17/2014 ([facility]). Stable on current medications. Continue per [...] which included preparing to see the patient, jrpe-vm-ksjc patient care, completing clinical documentation, obtaining and/or reviewing separately obtained history, performing a medically appropriate examination, counseling and educating the pat ient/family/caregiver, ordering medications, tests, or procedures, independently interpreting results (not separately reported), and communicating results to the patient/family/caregiver. documented in this encounterSelect [facility], Inc01-09-2025 Telephone encounter Note * Telephone Encounter - Josemanuel Ortiz - 07/25/2024 8:23 AM EST Patient on lab schedule 08/01/24 for lab only prior to RV. Please review and place needed order. Thank you, Gabi Ortiz MLT [facility]01-09-2025 Miscellaneous Notes* Telephone Encounter - Josemanuel Ortiz - 07/25/2024 8:23 AM EST Patient on lab schedule 08/01/24 for lab only prior to RV. Please review and place needed order. Thank you, Gabi Ortiz MLT documented in this encounterSelect Medical [facility], Inc11-25-2024 Evaluation note* Diagnosis Onset Date Resolution Status [...] 2 diabetes mellitus with hyperglycemiaacuteFebruary 2024 9:28am [facility] Work Phone: [phone] Telephone encounter Note* Telephone Encounter - Aida Luo RPh - 05/08/2024 8:53 AM EDT This prescription confirms Pablo' re-enrollment in the Xtandi free drug program for 2024. Thank you Josh Luo PharmD, BCOP [facility] Work Phone: [phone] Miscellaneous Notes* Telephone Encounter - Aida Luo RPh - 05/08/2024 8:53 AM EDT This prescription confirms Pablo' re-enrollment in the Xtandi free drug program for 2024. Thank you Josh Luo PharmD, BCOP documented in this encounterSelect Medical Specialty [facility], Inc10-23-2024 History of Present illness Narrative* Marco A Esqueda MD - 05/08/2024 8:13 AM EDT PATIENT NAME: Pablo Felix DATE: 05/09/2024 PRIMARY CARE PHYSICIAN: Dr. Jamar Fall OTHER PHYSICIANS: Dr. Anthony cSruggs, Dr. Khan, [facility] Cardiology Portions of this encounter note [...] mg 24 hr tablet Take by mouth. 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 [...] RADIOLOGY/OTHER STUDIES: 11/05/2021 CT chest/abdomen/pelvis ([facility]) Several sclerotic lesions consistent with metastatic disease. No evidence of visceral organ involvement or lymphadenopathy. 11/05/2021 Bone scan ([facility]) Multifocal osseous metastasis including the left femur at the lesser trochanter, right pubis symphysis, multiple ribs bilaterally. 01/22/2018 Nuclear bone scan ([facility]) New focal increased activity left frontal bone, left T8 vertebral body. 01/22/2018 MRI pelvis ([facility]) 4.5 cm area of T2 signal in the prostate bed. 07/24/2014 CT abdomen/pelvis ([facility] Diffuse prostatic enlargement with indentation of the bladder base. Incidental 2.5 x 1 cm exophytic hypodense lesion adjacent to the pancreatic body. ASSESSMENT/PLAN: 1. Metastatic prostate cancer (HCC) - ICD9: 185, ICD10: C61 (primary diagnosis) The patient was diagnosed with early-stage high-grade prostate cancer in June 2014 (TRUS cittky1007/02/2014). He underwent a radical prostatectomy on 11/05/2014. [...] ICD10: I25.10 Status post CABG 08/17/2014 ([facility]). Stable on current medications. Continue per [...] in this encounterSelect [facility], Inc10-04-2024 Hospital Discharge instructions Patient Education 04/19/2024 08:45:03 [...] under a microscope. This is called the [place] score and the total score can range from 6 10, indicating how likely it is that the cancer will spread (metastasize) to other parts of the body. The higher the score, the greater thelikelihood that the cancer will spread. [place] 6 or lower: This indicates that the cancer cells look similar to normal prostate cells (well differentiated). [place] 7: This indicates that the cancer cells [...] stress of having cancer. General instructions Take mggl-oog-pqusweu and prescription medicines only as told by your health care provider. If you have to go to the hospital, notify your cancer specialist (oncologist). Keep all follow-up visits. This is important. Where to find more information [place] [employer]: www.cancer.org [place] [employer] Clinical Oncology: www.cancer.net National Cancer [place]: www.cancer.gov Contact a health care provider if: [...] provider. Document Revised: 09/29/2021 Document Reviewed: 09/29/2021 Flurry Patient Education 2023 [employer]. Follow Up Care 10/20/2023 09:58:12 With:KAEL JAMES, Anthony Lee, URL Address: [address] [place] [address]- When: Unknown [facility] 10-04-2024 NotePatient Education Oncology Prostate Cancer [...] to normal prostate cells (moderately differentiated). ? [place] 8, 9, or 10: This indicates that [...] implanted intothe prostate gla (more content not included)...[facility]09-16-2024 Telephone encounter Note* Telephone Encounter - Aida Luo, [facility] - 04/01/2024 3:59 PM EDT Recd phone call from [facility] that they are unable to obtain the Xtandi 80mg tablets a thistime and requested a script for the 40 mg dosing. Order pending Josh Luo PharmD, BCOP [facility] Work Phone: [phone] Miscellaneous Notes* Telephone Encounter - Aida Luo RPh - 04/01/2024 3:59 PM EDT Recd phone call from [facility] that they are unable to obtain the Xtandi 80mg tablets a thistime and requested a script for the 40 mg dosing. Order pending Josh Luo PharmD, BCOP documented in this encounterSelect Medical Specialty [facility], Inc07-19-2024 Instructions* Patient Instructions* Lynne Rajan APRN.CNP - [...] in this encounterSelect Medical Specialty [facility], Inc07-19-2024 History of Present illness Narrative* Lynne Rajan APRN.CNP - 02/02/2024 11:30 AM EDT PATIENT NAME: Pablo Felix DATE: February 02, 2024 PRIMARY CARE PHYSICIAN: Dr. Jamar Fall OTHER PHYSICIANS: Dr. Anthony Scruggs, Dr. Khan, [facility] Cardiology This note was copied from [...] mg 24 hr tablet Take by mouth. 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 [...] RADIOLOGY/OTHER STUDIES: 11/05/2021 CT chest/abdomen/pelvis ([facility]) Several sclerotic lesions consistent with metastatic disease. No evidence of visceral organ involvement or lymphadenopathy. 11/05/2021 Bone scan ([facility]) Multifocal osseous metastasis including the left femur at the lesser trochanter, right pubis symphysis, multiple ribs bilaterally. 01/22/2018 Nuclear bone scan ([facility]) New focal increased activity left frontal bone, left T8 vertebral body. 01/22/2018 MRI pelvis ([facility]) 4.5 cm area of T2 signal in the prostate bed. 07/24/2014 CT abdomen/pelvis ([facility] Diffuse prostatic enlargement with indentation of the bladder base. Incidental 2.5 x 1 cm exophytic hypodense lesion adjacent to the pancreatic body. ASSESSMENT/PLAN: 1. Metastatic prostate cancer (HCC) - ICD9: 185, ICD10: C61 (primary diagnosis) The patient was diagnosed with early-stage high-grade prostate cancer in June 2014 (TRUS fioude3507/02/2014). He underwent a radical prostatectomy on 11/05/2014. Pathology consistent with stage IIIC (pT2b, N0, M0), [place] 5+4 equal 9. Postop the patient's PSA [...] <12. Bone scan obtained at [facility] 11/05/2021 revealed multiple bone metastases. 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 Stable on current medications. Continue per [...] up. Lynne Rajan APRN.CNP Hematology/Oncology [facility]/ [facility] [phone] CC: Dr. Anthony Scruggs documented in this encounterSelect Medical Specialty [facility], Inc04-18-2024 History of Present illness Narrative* Christo Howard APRN.CNP - 11/02/2023 9:28 AM EDT PATIENT NAME: Pablo Felix DATE: 11/02/2023 PRIMARY CARE PHYSICIAN: Dr. Jamar Fall OTHER PHYSICIANS: Dr. Anthony Scruggs, Dr. Khan, [facility] Cardiology Portions of this encounter note [...] mg 24 hr tablet Take by mouth. 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 [...] RADIOLOGY/OTHER STUDIES: 11/05/2021 CT chest/abdomen/pelvis ([facility]) Several sclerotic lesions consistent with metastatic disease. No evidence of visceral organ involvement or lymphadenopathy. 11/05/2021 Bone scan ([facility]) Multifocal osseous metastasis including the left femur at the lesser trochanter, right pubis symphysis, multiple ribs bilaterally. 01/22/2018 Nuclear bone scan ([facility]) New focal increased activity left frontal bone, left T8 vertebral body. 01/22/2018 MRI pelvis ([facility]) 4.5 cm area of T2 signal in the prostate bed. 07/24/2014 CT abdomen/pelvis ([facility] Diffuse prostatic enlargement with indentation of the bladder base. Incidental 2.5 x 1 cm exophytic hypodense lesion adjacent to the pancreatic body. ASSESSMENT/PLAN: 1. Metastatic prostate cancer (HCC) - ICD9: 185, ICD10: C61 (primary diagnosis) The patient was diagnosed with early-stage high-grade prostate cancer in June 2014 (TRUS gjmoih1307/02/2014). He underwent a radical prostatectomy on 11/05/2014. [...] <12. Bone scan obtained at [facility] 11/05/2021 revealed multiple bone metastases. 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 Stable on current medications. Continue per [...] would reconsider referral to GI. Christo Howard APRN.MANAGER CLIENT CC: Dr. Anthony Scruggs I spent a total of 30 minutes on the date of the service which included preparing to see the patient, cfsg-es-fyot patient care, completing clinical documentation, obtaining and/or reviewing separately obtained history, performing a medically appropriate examination, counseling and educating the pat ient/family/caregiver, ordering medications, tests, or procedures, independently interpreting results (not separately reported), and communicating results to the patient/family/caregiver. documented in this encounterSelect [facility]ty [facility], [facility]04-05-2024 Hospital Discharge instructions Patient Education 10/20/2023 09:54:58 [...] under a microscope. This is called the [place] score and the total score can range from 6 10, indicating how likely it is that the cancer will spread (metastasize) to other parts of the body. The higher the score, the greater thelikelihood that the cancer will spread. [place] 6 or lower: This indicates that the cancer cells look similar to normal prostate cells (well differentiated). [place] 7: This indicates that the cancer cells look somewhat similar to normal prostate cells (moderately differentiated). [place] 8, 9, or 10: This indicates that [...] stress of having cancer. General instructions Take bzyy-fvh-tftkngz and prescription medicines only as told by your health care provider. If you have to go to the hospital, notify your cancer specialist (oncologist). Keep all follow-up visits. This is important. Where to find more information [place] [employer]: www.cancer.org [place] [employer] Clinical Oncology: www.cancer.net National Cancer [place]: www.cancer.gov Contact a health care provider if: [...] provider. Document Revised: 09/29/2021 Document Reviewed: 09/29/2021 [employer] Patient Education 2022 [employer]. Follow Up Care 04/17/2023 09:25:02 With:KAEL JAMES, Anthony Lee, URL Address: [address] [place] [address]- When: Unknown [facility] 02-12-2024 History of Present illness Narrative* Long Boo, PASSENGER AGENT-MANAGER CLIENT - 08/28/2023 11:25 AM EST Images from [...] limited to risks of scarring, darker or financial aids officer pigmentary changes, recurrence, incomplete removal and infection. [...] results, 6 months documented in this encounterSaint [facility] [id number] Evaluation note* Encounter Date Diagnosis Assessment Notes [...] use, the patient reduces the risk for CA, CVA, HTN, cardiac dysrhythmias and sudden cardiac [...] retention cyst and frontal sinus mass benign zlien Other 01-19-2024 Evaluation note* Encounter Date Diagnosis Assessment Notes Treatment Notes Treatment Clinical Notes Jul, Pancreatic mass (ICD-10 - K86.89 ) MRCP: 4cm mass - 2022 - previously completed EUS bx at [facility] - stable in size from 2021 zlien Other 11-14-2023 Evaluation note* Encounter Date Diagnosis [...] ENT since scheduling appt for sinus mass zlien Other 10-16-2023 Evaluation note* Encounter Date Diagnosis [...] malignant neoplasm of bone (ICD-10 - C79.51) zlien Other 10-12-2023 History of Present illness Narrative* Christo Howard, ROCHELLE.MANAGER CLIENT - 04/27/2023 10:00 AM EDT PATIENT NAME: Pablo Felix DATE: 04/27/2023 PRIMARY CARE PHYSICIAN: Dr. Jamar Fall OTHER PHYSICIANS: Dr. Anthony Scruggs, Dr. Khan, [facility] Cardiology Portions of this encounter note have been copied from the note from 02/02/2023 and has been updated where appropriate, and reflect my current medical decision making from today. CC: This is a 78 year old male with metastatic prostate cancer, seen for scheduled follow-up and Xgeva. INTERIM HISTORY: Pablo Fleix returns for follow-up. He remains on Xtandi [...] mg 24 hr tablet Take by mouth. 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 [...] RADIOLOGY/OTHER STUDIES: 11/05/2021 CT chest/abdomen/pelvis ([facility]) Several sclerotic lesions consistent with metastatic disease. No evidence of visceral organ involvement or lymphadenopathy. 11/05/2021 Bone scan ([facility]) Multifocal osseous metastasis including the left femur at the lesser trochanter, right pubis symphysis, multiple ribs bilaterally. 01/22/2018 Nuclear bone scan ([facility]) New focal increased activity left frontal bone, left T8 vertebral body. 01/22/2018 MRI pelvis ([facility]) 4.5 cm area of T2 signal in the prostate bed. 07/24/2014 CT abdomen/pelvis [place] Diffuse prostatic enlargement with indentation of the bladder base. Incidental 2.5 x 1 cm exophytic hypodense lesion adjacent to the pancreatic body. ASSESSMENT/PLAN: 1. Metastatic prostate cancer (HCC) - ICD9: 185, ICD10: C61 (primary diagnosis) The patient was diagnosed with early-stage high-grade prostate cancer in June 2014 (TRUS [id number]/02/2014). He underwent a radical prostatectomy on 11/05/2014. [...] <12. Bone scan obtained at [facility] 11/05/2021 revealed multiple bone metastases. 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 Stable on current medications. Continue per [...] which included preparing to see the patient, vsmm-hq-qrsh patient care, completing clinical documentation, obtaining and/or reviewing separately obtained history, performing a medically appropriate examination, counseling and educating the pat ient/family/caregiver, ordering medications, tests, or procedures, independently interpreting results (not separately reported), and communicating results to the patient/family/caregiver. documented in this encounterCleveland [id number] Evaluation note* Encounter Date Diagnosis Assessment Notes Treatment Notes Treatment Clinical Notes Apr, Pancreatic mass (ICD-10 - K86.89 ) zlien Other [id number] Hospital Discharge instructions Patient Education 04/17/2023 09:18:19 [...] greater thelikelihood that the cancer will spread. [place] 6 or lower: This indicates that the cancer cells look similar to normal prostate cells (well differentiated). [place] 7: This indicates that the cancer cells look somewhat similar to normal prostate cells (moderately differentiated). [place] 8, 9, or 10: This indicates that [...] stress of having cancer. General instructions Take lmos-hnf-lzivtrz and prescription medicines only as told by your health care provider. If you have to go to the hospital, notify your cancer specialist (oncologist). Keep all follow-up visits. This is important. Where to find more information [employer] [employer]: www.cancer.org [place] [employer]: www.cancer.net National Cancer [place]: www.cancer.gov Contact a health care provider if: [...] provider. Document Revised: 09/29/2021 Document Reviewed: 09/29/2021 [employer] Patient Education 2022 [employer]. Follow Up Care 10/28/2022 08:37:57 With:KAEL JAMES, Anthony Lee, URL Address: [facility] [address] , [place] [address]- [phone] When: Unknown Comments:6 mos w/ PSA (and possible Lupron) [facility] [place] 09-27-2023 Evaluation note* Encounter Date Diagnosis Assessment Notes Treatment Notes Treatment Clinical Notes Mar, Pancreatic mass (ICD-10 - K86.89 ) zlien Other 09-20-2023 Evaluation note* Encounter Date Diagnosis Assessment Notes Treatment Notes Treatment Clinical Notes Mar, Right upper quadrant abdominal p ain (ICD-10 - R10.11) Diet instructions Lab to r/o acute infection, cholecystitis, pancreatitis GBUS vs CT abd based on results BLand, low fat diet Mar,Nausea (ICD-10 - R11.0)[place] , small/frequent feedings. Pepcid, Prilosec, Tums as [...] Microalbumin, Dilated eye exam and Foot exam zlien Other 08-30-2023 Evaluation note* Encounter Date Diagnosis [...] use, the patient reduces the risk for CA, CVA, HTN, cardiac dysrhythmias and sudden cardiac [...] exercise for 30 minutes, 3-5 times weekly. zlien Other 07-23-2023 Evaluation note* Encounter Date Diagnosis Assessment Notes Treatment Notes Treatment Clinical Notes Jan, Left bundle-branch block, unspec ified (ICD-10 - I44.7) zlien Other 07-20-2023 History of Present illness Narrative* Marco A Esqueda MD - 02/02/2023 7:38 AM EDT PATIENT NAME: Pablo Felix DATE: 02/02/2023 PRIMARY CARE PHYSICIAN: Dr. Jamar Fall OTHER PHYSICIANS: Dr. Anthony Scruggs, Dr. Khan, [facility] Cardiology Portions of this encounter note [...] mg 24 hr tablet Take by mouth. 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 [...] RADIOLOGY/OTHER STUDIES: 11/05/2021 CT chest/abdomen/pelvis ([facility]) Several sclerotic lesions consistent with metastatic disease. No evidence of visceral organ involvement or lymphadenopathy. 11/05/2021 Bone scan ([facility]) Multifocal osseous metastasis including the left femur at the lesser trochanter, right pubis symphysis, multiple ribs bilaterally. 01/22/2018 Nuclear bone scan ([facility]) New focal increased activity left frontal bone, left T8 vertebral body. 01/22/2018 MRI pelvis ([facility]) 4.5 cm area of T2 signal in the prostate bed. 07/24/2014 CT abdomen/pelvis ([facility] Diffuse prostatic enlargement with indentation of the bladder base. Incidental 2.5 x 1 cm exophytic hypodense lesion adjacent to the pancreatic body. ASSESSMENT/PLAN: 1. Metastatic prostate cancer (HCC) - ICD9: 185, ICD10: C61 (primary diagnosis) The patient was diagnosed with early-stage high-grade prostate cancer in June 2014 (TRUS [id number]/02/2014). He underwent a radical prostatectomy on 11/05/2014. [...] <12. Bone scan obtained at [facility] 11/05/2021 revealed multiple bone metastases. 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 Stable on current medications. Continue per [...] in this encounterSelect [facility]04-27-2023 History of Present illness Narrative* Christo Howard APRN.MANAGER CLIENT - 11/10/2022 10:00 AM EDT PATIENT NAME: Pablo Felix DATE: 11/10/2022 PRIMARY CARE PHYSICIAN: Dr. Jamar Fall OTHER PHYSICIANS: Dr. Anthony Scruggs, Dr. Khan, [facility] Cardiology Portions of this encounter note [...] mg 24 hr tablet Take by mouth. 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 [...] RADIOLOGY/OTHER STUDIES: 11/05/2021 CT chest/abdomen/pelvis ([facility]) Several sclerotic lesions consistent with metastatic disease. No evidence of visceral organ involvement or lymphadenopathy. 11/05/2021 Bone scan ([facility]) Multifocal osseous metastasis including the left femur at the lesser trochanter, right pubis symphysis, multiple ribs bilaterally. 01/22/2018 Nuclear bone scan ([facility]) New focal increased activity left frontal bone, left T8 vertebral body. 01/22/2018 MRI pelvis ([facility]) 4.5 cm area of T2 signal in the prostate bed. 07/24/2014 CT abdomen/pelvis ([facility] Diffuse prostatic enlargement with indentation of the bladder base. Incidental 2.5 x 1 cm exophytic hypodense lesion adjacent to the pancreatic body. ASSESSMENT/PLAN: 1. Metastatic prostate cancer (HCC) - ICD9: 185, ICD10: C61 (primary diagnosis) The patient was diagnosed with early-stage high-grade prostate cancer in June 2014 (TRUS [id number]/02/2014). He underwent a radical prostatectomy on 11/05/2014. [...] <12. Bone scan obtained at [facility] 11/05/2021 revealed multiple bone metastases. 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 Stable on current medications. Continue per [...] which included preparing to see the patient, uklf-vj-szxo patient care, completing clinical documentation, obtaining and/or reviewing separately obtained history, performing a medically appropriate examination, counseling and educating the pat ient/family/caregiver, ordering medications, tests, or procedures, independently interpreting results (not separately reported), and communicating results to the patient/family/caregiver. documented in this encounterSelect [facility], Inc03-03-2023 Evaluation note* Encounter Date Diagnosis Assessment Notes [...] injection w/ Kenalog, may increase BS slightly zlien Other 02-24-2023 Evaluation note* Encounter Date Diagnosis [...] use, the patient reduces the risk for CA, CVA, HTN, cardiac dysrhythmias and sudden cardiac [...] w/ additional oral chemotherapy from [facility] Oncology. Also receiving Boniva Aug,OtherPersonalized [...] reviewed and amended by provider signed below. zlien Other 01-26-2023 History of Present illness Narrative* Marco A Esqueda MD - 08/11/2022 7:42 AM EST PATIENT NAME: Pablo Felix DATE: 08/11/2022 PRIMARY CARE PHYSICIAN: Dr. Jamar Fall OTHER PHYSICIANS: Dr. Anthony Scruggs, Dr. Khan, [facility] Cardiology Portions of this encounter note [...] mg 24 hr tablet Take by mouth. 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 [...] RADIOLOGY/OTHER STUDIES: 11/05/2021 CT chest/abdomen/pelvis ([facility]) Several sclerotic lesions consistent with metastatic disease. No evidence of visceral organ involvement or lymphadenopathy. 11/05/2021 Bone scan ([facility]) Multifocal osseous metastasis including the left femur at the lesser trochanter, right pubis symphysis, multiple ribs bilaterally. 01/22/2018 Nuclear bone scan ([facility]) New focal increased activity left frontal bone, left T8 vertebral body. 01/22/2018 MRI pelvis ([facility]) 4.5 cm area of T2 signal in the prostate bed. 07/24/2014 CT abdomen/pelvis ([facility] Diffuse prostatic enlargement with indentation of the bladder base. Incidental 2.5 x 1 cm exophytic hypodense lesion adjacent to the pancreatic body. ASSESSMENT/PLAN: 1. Metastatic prostate cancer (HCC) - ICD9: 185, ICD10: C61 (primary diagnosis) The patient was diagnosed with early-stage high-grade prostate cancer in June 2014 (TRUS [id number]/02/2014). He underwent a radical prostatectomy on 11/05/2014. Pathology consistent with stage IIIC (pT2b, N0, M0), [place] 5+4 equal 9. Postop the patient's PSA [...] <12. Bone scan obtained at [facility] 11/05/2021 revealed multiple bone metastases. 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 Stable on current medications. Continue per [...] in this encounterSelect [facility], [facility]01-05-2023 NotePROCEDURE: XR SHOULDER LT 2V or > [...] Electronically authenticated by: CYNTHIA TORRES Date: 2022-07-21 15:46[facility] [place]01[facility] Evaluation note* Encounter Date Diagnosis Assessment Notes Treatment Notes Treatment Clinical Notes Jul, Cervical spondylosis with radicu lopathy (ICD-10 - M47.22) ROM exercises, heat/ice and Tylenol 1000mg tid. Initiated Tramadol w/ caution, no driving, may cause sedation. Jul,cute pain of left shoulder (ICD-10 - M25.512)ROM exercises, Tylenol and Tramadol as needed. Jul,nnual physical exam (ICD-10 - Z00.00) zlien Other 10-28-2022 Hospital Discharge instructions Patient Education [...] who: Are older than age 65. Are -[place]ian. Are obese. Have a family history of [...] cells. Follow these instructions at home: Take ivla-nbn-ixpoabw and prescription medicines only as told by [...] 07/03/2006 Document Revised: 06/15/2018 Document Reviewed: 03/13/2017 [employer] Patient Education 24/7 Card. Follow Up Care 11/08/2021 14:14:20 With:KAEL JAMES, Anthony Lee, URL Address: [address] [place], [place] [id number]- When: Unknown [facility] 10-27-2022 Nurse Note* Sheela Toney - 05/12/2022 10:43 AM EDT AUA=2 documented in this encounterSelect Medical [facility], Inc10-27-2022 History of Present illness Narrative* Zach Khan MD - 05/12/2022 10:41 AM EDT Radiation Oncology - Follow Up Note PATIENT NAME: Pablo Felix PATIENT DIAGNOSIS: Prostate adenocarcinoma, initial clinical stage II, initial PSA 1.07, biopsy Lucrecia score 9(4,5), s/p prostatectomy for 11/05/14 pathologic stage IIIC [id number], [place] 9 (5, 4) now with rising PSA [...] Each once daily. To test blood sugar Ddvzukteltihv-Dkockqbc-Zbkexy (MULTIVITAMIN 50 PLUS) tab Take 1 tablet [...] clinical stage II, initial PSA 1.07, biopsy [place] score 9(4,5), s/p prostatectomy for 11/05/14 pathologic stage IIIC [id number], [place] 9 (5, 4) withrising PSA, subsequently status [...] Zach Khan MD cc: Jamar Fall MD ([facility]) Portions of the above note extracted and edited from previous visit as well as active information included in the EMR. documented in this encounterSelect Medical [facility], Inc10-17-2022 Miscellaneous Notes* Telephone Encounter - Sheela Toney - 05/02/2022 10:48 AM EDT Patient coming in on 05/12/22 for follow up with labs. Please add lab orders. Thanks, Sheela Toney MA documented in this encounterSelect [facility], Inc08-04-2022 History of Present illness Narrative* Marco A Esqueda MD - 02/17/2022 7:51 AM EDT PATIENT NAME: Pablo Felix DATE: 02/17/2022 PRIMARY CARE PHYSICIAN: Jamar Fall DO OTHER PHYSICIANS: Dr. Anthony Scruggs, Dr. Khan, [facility] Cardiology Portions of this encounter note [...] Each once daily. 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 [...] RADIOLOGY/OTHER STUDIES: 11/05/2021 CT chest/abdomen/pelvis ([facility]) Several sclerotic lesions consistent with metastatic disease. No evidence of visceral organ involvement or lymphadenopathy. 11/05/2021 Bone scan ([facility]) Multifocal osseous metastasis including the left femur at the lesser trochanter, right pubis symphysis, multiple ribs bilaterally. 01/22/2018 Nuclear bone scan ([facility]) New focal increased activity left frontal bone, left T8 vertebral body. 01/22/2018 MRI pelvis ([facility]) 4.5 cm area of T2 signal in the prostate bed. 07/24/2014 CT abdomen/pelvis ([facility] Diffuse prostatic enlargement with indentation of the bladder base. Incidental 2.5 x 1 cm exophytic hypodense lesion adjacent to the pancreatic body. ASSESSMENT/PLAN: 1. Metastatic prostate cancer (HCC) - ICD9: 185, ICD10: C61 (primary diagnosis) The patient was diagnosed with early-stage high-grade prostate cancer in June 2014 (TRUS [id number]/02/2014). He underwent a radical prostatectomy on 11/05/2014. Pathology consistent with stage IIIC (pT2b, N0, M0), [place] 5+4 equal 9. Postop the patient's PSA [...] Staging scans were obtained at [facility] on 11/05/2021. 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 Stable on current medications. Continue per [...] in this encounterSelect Medical [facility], [facility]05-23-2022 Miscellaneous Notes* Telephone Encounter - Clementine Aguilar [...] that he has the phone number to [facility]. No additional questionsnoted. Clementine Aguilar RN documented in this encounterSelect Medical Special[facility], Inc04-28-2022 History of Present illness Narrative* Marco A Esqueda MD - 11/11/2021 7:42 AM EDT PATIENT NAME: Pablo Felix DATE: 11/11/2021 PRIMARY CARE PHYSICIAN: Jamar Fall, OTHER PHYSICIANS: Dr. Anthony Scruggs, Dr. Khan, [facility] Cardiology Portions of this encounter note have been copied from my note from 10/28/2021 and has been updated where appropriate, and reflect my current medical decision making from today. CC: This is a 76 year old male with recently diagnosed metastatic prostate cancer, seen for scheduled follow-up. INTERIM HISTORY: Since the patient's initial visit here he underwent staging scans at [facility] on 11/05/2021. Bone scan revealed multiple areas [...] Each once daily. 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 [...] RADIOLOGY/OTHER STUDIES: 11/05/2021 CT chest/abdomen/pelvis ([facility]) Several sclerotic lesions consistent with metastatic disease. No evidence of visceral organ involvement or lymphadenopathy. 11/05/2021 Bone scan ([facility]) Multifocal osseous metastasis including the left femur at the lesser trochanter, right pubis symphysis, multiple ribs bilaterally. 01/22/2018 Nuclear bone scan ([facility]) New focal increased activity left frontal bone, left T8 vertebral body. 01/22/2018 MRI pelvis ([facility]) 4.5 cm area of T2 signal in the prostate bed. 07/24/2014 CT abdomen/pelvis ([facility] Diffuse prostatic enlargement with indentation of the bladder base. Incidental 2.5 x 1 cm exophytic hypodense lesion adjacent to the pancreatic body. ASSESSMENT/PLAN: 1. Metastatic prostate cancer (HCC) - ICD9: 185, ICD10: C61 (primary diagnosis) The patient was diagnosed with early-stage high-grade prostate cancer in June 2014 (TRUS [id number]/02/2014). He underwent a radical prostatectomy on 11/05/2014. [...] Staging scans were obtained at [facility] on 11/05/2021. 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 Stable on current medications. Continue per [...] in this encounterSelect [facility]04-27-2022 Miscellaneous Notes* Telephone Encounter - Clementine Aguilar RN - 11/10/2021 3:03 PM EDT Pt reports his Enzalutamide was delivered. Will start this evening. Clementine Aguilar RN documented in this encounterSelect Medical [facility], [facility]04-26-2022 Miscellaneous Notes* Telephone Encounter - Clementine Aguilar RN - 11/09/2021 2:31 PM EDT Per pt, his Enzalutamide is scheduled to arrive tomorrow morning. Patient started/will start taking Enzalutamide on 11/10/21. Clementine Aguilar RN documented in this encounterSelect Medical [facility], [facility]04-25-2022 Hospital Discharge instructions Patient Education 11/08/2021 14:10:09 [...] who: Are older than age 65. Are -[place]ian. Are obese. Have a family history of [...] cells. Follow these instructions at home: Take jmgp-bpc-zazqqfy and prescription medicines only as told by [...] 07/03/2006 Document Revised: 06/15/2018 Document Reviewed: 03/13/2017 [employer] Patient Education 2020 [employer]. Follow Up Care 08/23/2021 13:26:07 With:KAEL JAMES, Anthony Lee, URL Address: [facility] [address] [place] [phone] When:05/10/2022 [facility] 04-21-2022 Miscellaneous Notes* Telephone Encounter - Clementine Aguilar RN - 11/04/2021 2:53 PM EDT Pt would like to get the 4th Covid vaccine when it's due. Dr Esqueda notified and gives the ok to proceed when due. Pt notified and verbalizes understanding. Clementine Aguilar RN documented in this encounterSelect Medical [facility]04-21-2022 History of Present illness Narrative* Clementine Aguilar [...] Information handout: Enzalutamide, Specialty Pharmacy Information : [email or web address] phone numbers: Yes [...] Aguilar RN * Aida Luo, [facility] - 11/04/2021 2:49 PM EDT Images from the original note were not included. [facility] Department of Pharmacy Oncology Pharmacy [...] Each once daily. To test blood sugar Cutttjlucootk-Bddlnicp-Msvdqi (MULTIVITAMIN 50 PLUS) tab Take 1 tablet [...] of chemotherapy NA - Followed up with [facility] for delivery of Free Xtandi Readiness [...] in [facility] encounter[facility] Miscellaneous Notes* Telephone Encounter - Aida Luo RPh - 11/04/2021 10:54 AM EDT Confirmed with [employer] approval date 11/01/21 and that the specialty pharmacy, [facility], will reach out to Mr Felix 3-5 business days from approval date. If he does not hear from them by 11/10/21 we should call [facility] @ option 2. I informed Mr Felix of this, he has an appt 11/12/21 and said if he has not heard from them by then he will get their phone number from us. Rubin Luo RPh documented in this encounter[facility]04-19-2022 Miscellaneous Notes* Telephone Encounter - Jennifer Amaro [...] him know to be expecting this call. [email or web address] will call patient to set up delivery for all fills. I do not see where he has had chemo education yet. Alba does he need to be set up with you? Thanks Rubin Luo RP * Telephone Encounter - Andreina Castillo RP - 11/01/2021 10:55 AM EDT Patient called today. We completed a conference call with [employer] - they were ableto obtain [...] We will proceed free drug application through [employer]. Pharmacy to reach out to patient 10/29/2021 to notify. Brina Wang RPh * Telephone Encounter - Brina Wang RPh - 10/28/2021 3:08 PM EDT Ambulatory Pharmacy Prior Authorization Note Provider Intervention Required?: No- Pharmacy completed on your behalf. Drug: Xtandi Cover My Meds Carter: [id number] Determination: Approved Prior Authorization/Case #: [id number] Prior Authorization Expiration: 10/28/2022 Time to PA Submission in CMM: 15 min Time to PA Determination in CMM: Same day Additional Information: Co-Pay $3,111.12 For questions relating to this submission, please contact [facility] at [phone] documented in this encounter[facility]04-19-2022 Miscellaneous Notes* Telephone Encounter - Zohra Avila PA-C - 11/02/2021 12:00 PM EDT CBC and CMP orders placed Zohra Avila PA-C * Telephone Encounter - Katie Rosen MA - 11/02/2021 11:57 AM EDT Patient has an appt on 11/11/21. Would you like labs, if so place orders. Katie Rosen MA documented in this encounter[facility]04-18-2022 Miscellaneous Notes* Telephone Encounter - Clementine Aguilar [...] in this encounterSelect [facility]04-14-2022 Miscellaneous Notes* Telephone Encounter - Clementine Aguilar RN - 10/28/2021 1:12 PM EDT Voicemail message received from Sandra @ [facility]. Reports the pt's 1st dose of Lupron was given on 02/12/2018. Dr Eqsueda notified. Clementine Aguilar RN * Telephone Encounter - Clementine Aguilar RN - 10/28/2021 12:[address] Esqueda requests that we contact Dr Scruggs' office for pt's Lupron start date. Call placed to [facility]. No answer. Message left requesting call back. Clementine Aguilar RN documented in this encounterSelect [facility]04-14-2022 Miscellaneous Notes* Telephone Encounter - Clementine Aguilar RN - 10/28/2021 1:12 PM EDT This encounter was opened in error. @[email or web address]@ documented in this encounterSelect [facility]04-11-2022 Miscellaneous Notes* Telephone Encounter - Christo Howard APRN.CNP - 10/25/2021 4:05 PM EDT Hold off for now. Christo Howard APRN.MANAGER CLIENT * Telephone Encounter - Katie Rosen MA - 10/25/2021 11:01 AM EDT If patient needs labs, please sign/place orders for 10/28/21. Thanks. Katie Rosen MA documented in this encounterSelect [facility]01-01-2015 Evaluation note* Diagnosis Onset Date Resolution Status ASHD (arteriosclerotic heart disease) acuteCervical spondylosisacuteEssential hypertensionacuteHypercholesterolemia acuteMalignant neoplasm of prostateJanuary cuteNonrheumatic aortic valve stenosisacuteOSA (obstructive sleep apnea)acuteType 2 diabetes mellitus with hyperglycemiaacute [facility] Work Phone: Evaluation + Plan note Future Appointments Appointment Date:05/13/2022 08:45:00 AM Scheduled Provider:Anthony SCRUGGS MD Location:[facility] Appointment Type:URO Office Visit Diagnostic Tests Pending * PSA Total 11/08/21 Future Scheduled Tests Laboratory* Basic Metabolic Panel 09/20/21 [facility] evaluation + Plan note Future Appointments Appointment Date:10/28/2022 08:00:00 AM Scheduled Provider:Anthony SCRUGGS MD Location:[facility] Appointment Type:URO Office Visit Diagnostic Tests Pending * PSA Total 09/14/22 Future Scheduled Tests Laboratory* Basic Metabolic Panel 09/20/21 [facility] evaluation + Plan note Future Appointments Appointment Date:10/20/2023 08:45:00 AM Scheduled Provider:Anthony SCRUGGS MD Location:[facility] Appointment Type:URO Office Visit Diagnostic Tests Pending * PSA Total 04/17/23 [facility] evaluation + Plan note Future Appointments Appointment Date:04/19/2024 08:00:00 AM Scheduled Provider:Anthony SCRUGGS MD Location:[facility] Appointment Type:URO Office Visit Diagnostic Tests Pending * PSA Total 02/15/24 [facility] evaluation + Plan note Future Appointments Appointment Date:10/07/2024 09:15:00 AM Scheduled Provider:Anthony SCRUGGS [facility] App[facility] Type:URO Office Visit Diagnostic Tests Pending * PSA Total 08/17/24 [facility] evaluation + Plan note Future Appointments Appointment Date:09/22/2025 09:30:00 AM Scheduled Provider: Location:[facility] Appointment Type:URO Nurse Visit Appointment Date:09/29/2025 11:15:00 AM Scheduled Provider:Anthony SCRUGGS MD [facility] App[facility] Type:URO Office Visit Diagnostic Tests Pending * PSA Total 03/31/25 [facility] Evaluation note* Diagnosis OPENED IN ERROR- Primary To allow closing an encounter opened in error (used in SmartSet) documented in this encounter [facility]* Diagnosis Malignant neoplasm of prostate (HCC)- Primary Malignant neoplasm of prostate [facility]* Diagnosis Malignant neoplasm of prostate (HCC)- Primary Malignant neoplasm of prostate [facility]* Diagnosis Malignant neoplasm of prostate (HCC)- Primary Malignant neoplasm of prostate 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 [facility]* Diagnosis Malignant neoplasm of prostate (HCC)- Primary Malignant neoplasm of prostate [facility]* Diagnosis Malignant neoplasm of prostate (HCC)- Primary Malignant neoplasm of prostate 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 [facility]* Diagnosis Malignant neoplasm of prostate (HCC)- Primary Malignant neoplasm of prostate [facility]* Diagnosis Malignant neoplasm of prostate (HCC)- Primary Malignant neoplasm of prostate [facility]* Diagnosis Malignant neoplasm of prostate (HCC)- Primary Malignant neoplasm of prostate [facility]* Diagnosis Malignant neoplasm of prostate (HCC)- Primary Malignant neoplasm of prostate [facility]* Diagnosis Malignant neoplasm of prostate (HCC)- Primary Malignant neoplasm of prostate 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 angina pectoris, unspecified vessel or lesion type Essential hypertension Unspecified essential hypertension Type 2 diabetes mellitus without complication, without long-term current use of insulin (HCC) documented in this encounter [facility] noteNo [facility] [employer] Other Evaluation note* Diagnosis Malignant neoplasm of prostate (HCC)- Primary Malignant neoplasm of prostate 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 angina pectoris, unspecified vessel or lesion type Essential hypertension Unspecified essential hypertension Type 2 diabetes mellitus without complication, without long-term current use of insulin (HCC) [facility]* Diagnosis Malignant neoplasm of prostate (HCC)- Primary Malignant neoplasm of prostate documented in this encounter [facility] note* Diagnosis Malignant neoplasm of prostate (HCC)- Primary Malignant neoplasm of prostate [facility]* Diagnosis Malignant neoplasm of prostate (HCC)- Primary Malignant neoplasm of prostate 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 angina pectoris, unspecified vessel or lesion type Essential hypertension Unspecified essential hypertension Type 2 diabetes mellitus without complication, without long-term current use of insulin (HCC) [facility]* Diagnosis Neoplasm of unspecified behavior of bone, soft tissue, and skin Actinic keratosis documented in this encounter [facility] [place] note* Diagnosis Malignant neoplasm of prostate (HCC)- Primary Malignant neoplasm of prostate [facility]* Diagnosis Malignant neoplasm of prostate (HCC)- Primary Malignant neoplasm of prostate Essential hypertension Unspecified essential hypertension 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 angina pectoris, unspecified vessel or lesion type Type 2 diabetes mellitus without complication, without long-term current use of insulin (HCC) Lesion of skin of right ear Abdominal discomfort Abdominal pain, unspecified site [facility]* Diagnosis Onset Date Resolution Status Cervical spondylosis acuteMass of skin of left shoulderacutePrimary osteoarthritis, right shoulder acuteShoulder pain, rightacuteNeck painnoneactiveASHD (arteriosclerotic heart disease)acuteEssential hypertensionacuteHypercholesterolemiaacuteMalignant neoplasm of prostateJanuary cuteNonrheumatic aortic valve stenosis acuteOSA (obstructive sleep apnea)acuteType 2 diabetes mellitus with hyperglycemiaacute [facility] Work Phone: Evaluation note* Diagnosis Malignant neoplasm of prostate (HCC)- Primary Malignant neoplasm of prostate [facility]* Diagnosis Malignant neoplasm of prostate (HCC)- Primary Malignant neoplasm of prostate [facility]* Diagnosis Malignant neoplasm of prostate (HCC)- Primary Malignant neoplasm of prostate [facility]* Diagnosis Malignant neoplasm of prostate (HCC)- Primary Malignant neoplasm of prostate [facility]* Diagnosis Malignant neoplasm of prostate (HCC)- Primary Malignant neoplasm of prostate Essential hypertension Unspecified essential hypertension 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 angina pectoris, unspecified vessel or lesion type Type 2 diabetes mellitus without complication, without long-term current use of insulin (HCC) [facility] Diagnosis Malignant neoplasm of prostate (HCC)- Primary Malignant neoplasm of prostate documented in this encounter [facility]* Diagnosis Seborrheic keratosis- Primary Melanocytic nevus of trunk Benign neoplasm of skin of trunk, except scrotum Actinic keratosis Lentigines Psoriasis vulgaris Other psoriasis History of SCC (squamous cell carcinoma) of skin Personal history of other malignant neoplasm of skin [facility] Diagnosis Onset Date Resolution Status Admit Date ASHD (arteriosclerotic heart disease) acuteOctober 2024 9:18amCervical spondylosisacuteOctober 2024 9:18am Essential hypertensionacuteOctober 2024 9:18amHypercholesterolemiaacute May 01, 2025 9:18amMalignant neoplasm of prostateJanuary cute May 01, 2025 9:18amNonrheumatic aortic valve stenosisacuteOctober 2024 9:18amOSA (obstructive sleep apnea)acuteOctober 2024 9:18amType 2 diabetes mellitus with hyperglycemiaacuteOctober 2024 9:18am [facility] Work Phone: History general Narrative - Reported* Type Description Date Medical History Nonrheumatic aortic valve stenos is Medical HistoryProstate cancerMedical HistoryObesity (BMI 30-39.9)Medical HistoryOSA (obstructive sleep apnea)Medical HistoryHyperlipidemia type IIMedical HistoryEssential hypertensionMedical HistoryType 2 diabetes mellitus with hyperglycemiaMedical HistoryASHD (arteriosclerotic heart disease)Medical History Depression screeningMedical HistoryOther congenital malformations of iris Surgical HistoryAppendectomy07/27/2016Surgical HistoryTRUS/Bx/2014Surgical Fajqbshauofivkoyjc61/2019Surgical EzruhgcHAP42/2019Surgical HistoryLHC/2014 Surgical HistoryCABG x32/2015Surgical HistoryPancreatic Mass/2016 Hospitalization Historysee surgical zlien Other History general Narrative - Reported* Type Description Date Medical History Nonrheumatic aortic valve stenos is Medical HistoryProstate cancerMedical HistoryObesity (BMI 30-39.9)Medical HistoryOSA (obstructive sleep apnea)Medical HistoryHyperlipidemia type IIMedical HistoryEssential hypertensionMedical HistoryType 2 diabetes mellitus with hyperglycemiaMedical HistoryASHD (arteriosclerotic heart disease)Medical History Depression screeningMedical HistoryOther congenital malformations of irisMedical HistoryPancreatic massSurgical HistoryAppendectomy07/27/2016Surgical History TRUS/Bx/2014Surgical Lzgphhegzviauffvfb53/2019Surgical JrgnllkRJO54/2019 Surgical HistoryLHC2/2014Surgical HistoryCABG x32/2015Surgical HistoryPancreatic Mass/2016Hospitalization Historysee surgical hx zlien Other Hospital course Narrative No data available for this section [facility] progress note No data available for this section [facility] reason for referral (narrative)No reason for referral information availableJoint [facility] Work Phone: Medications Administered Section Medication OrderMAR ActionAction DateDoseRateSite denosumab 120 mg injection (XGEVA) 120 mg, SUBCUTANEOUS, ONCE, 1 dose, On Mon11/18/21 at 1100, REFRIGERATE Given11/18/2021 10:47 AM [id number] mgArm, LeftMedication OrderMAR ActionAction Date DoseRateSite denosumab 120 mg injection (XGEVA) 120 mg, SUBCUTANEOUS, ONCE, 1 dose, On Mon05/12/22 at 1030, REFRIGERATE Given05/12/2022 10:26 AM [id number] mgArm, LeftMedication OrderMAR ActionAction Date DoseRateSite denosumab 120 mg injection (XGEVA) 120 mg, SUBCUTANEOUS, ONCE, 1 dose, On Mon08/11/22 at 1030, REFRIGERATE Given08/11/2022 10:23 AM [id number] mgArm, LeftMedication OrderMAR ActionAction Date DoseRateSite denosumab 120 mg injection (XGEVA) 120 mg, SUBCUTANEOUS, ONCE, 1 dose, On [place] 4/27/23 at 1000, REFRIGERATE Given11/10/2022 10:03 AM [id number] mgBack, LeftMedication OrderMAR ActionAction DateDoseRateSite denosumab 120 mg injection (XGEVA) 120 mg, SUBCUTANEOUS, ONCE, 1 dose, On Mon02/02/23 at 1030, REFRIGERATE Given02/02/2023 10:34 AM [id number] mgArm, LeftMedication OrderMAR ActionAction Date DoseRateSite denosumab 120 mg injection (XGEVA) 120 mg, SUBCUTANEOUS, ONCE, 1 dose, On Mon04/27/23 at 1000, REFRIGERATE Given04/27/2023 9:57 AM [id number] mgArm, Left Summary Purpose Family History No [...] To Contact Diagnoses Actinic keratosis Long Boo, PASSENGER AGENT-MANAGER CLIENT [address] [place] [address] Referral IDStatusReasonStart DateExpiration DateVisits RequestedVisits [id number] Reason *FU 06/06 Right fr ontal sinus mass and cerumen impaction Diagnosis 1 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) Diagnosis 2 Impacted cerumen of right ear (H61.21) Referral Organization [facility] Thony lizama Referring Provider First Name Jamar Referring Provider Last Name Juan David Referring Provider Specialty Internal Me dicine Referred Organization [facility] Referred Provider Emelina Louis Referred Address ,[place], [place],[address] Referred Provider Specialty Ear, Nose an d [...] drug abuse patient.[facility], IncIn the event this information is protected by the Federal Confidentiality of Alcohol and Drug Abuse Patient Records regulations: The Federal rules restrict any use of the information to criminally investigate or prosecute any alcohol or drug abuse patient.[facility], IncIn the event this information is protected by the Federal Confidentiality of Alcohol and Drug Abuse Patient Records regulations: The Federal rules restrict any use of the information to criminally investigate or prosecute any alcohol or drug abuse patient.[facility], IncIn the event this information is protected by the Federal Confidentiality of Alcohol and Drug Abuse Patient Records regulations: The Federal rules restrict any use of the information to criminally investigate or prosecute any alcohol or drug abuse patient.[facility], IncIn the event this information is protected by the Federal Confidentiality of Alcohol and Drug Abuse Patient Records regulations: The Federal rules restrict any use of the information to criminally investigate or prosecute any alcohol or drug abuse patient.[facility], IncIn the event this information is protected by the Federal Confidentiality of Alcohol and Drug Abuse Patient Records regulations: The Federal rules restrict any use of the information to criminally investigate or prosecute any alcohol or drug abuse patient.[facility], IncIn the event this information is protected by the Federal Confidentiality of Alcohol and Drug Abuse Patient Records regulations: The Federal rules restrict any use of the information to criminally investigate or prosecute any alcohol or drug abuse patient.[facility], IncIn the event this information is protected by the Federal Confidentiality of Alcohol and Drug Abuse Patient Records regulations: The Federal rules restrict any use of the information to criminally investigate or prosecute any alcohol or drug abuse patient.[facility], IncIn the event this information is protected by the Federal Confidentiality of Alcohol and Drug Abuse Patient Records regulations: The Federal rules restrict any use of the information to criminally investigate or prosecute any alcohol or drug abuse patient.[facility], IncIn the event this information is protected by the Federal Confidentiality of Alcohol and Drug Abuse Patient Records regulations: The Federal rules restrict any use of the information to criminally investigate or prosecute any alcohol or drug abuse patient.[facility], IncIn the event this information is protected by the Federal Confidentiality of Alcohol and Drug Abuse Patient Records regulations: The Federal rules restrict any use of the information to criminally investigate or prosecute any alcohol or drug abuse patient.[facility], IncIn the event this information is protected by the Federal Confidentiality of Alcohol and Drug Abuse Patient Records regulations: The Federal rules restrict any use of the information to criminally investigate or prosecute any alcohol or drug abuse patient.[facility], IncIn the event this information is protected by the Federal Confidentiality of Alcohol and Drug Abuse Patient Records regulations: The Federal rules restrict any use of the information to criminally investigate or prosecute any alcohol or drug abuse patient.[facility], IncIn the event this information is protected by the Federal Confidentiality of Alcohol and Drug Abuse Patient Records regulations: The Federal rules restrict any use of the information to criminally investigate or prosecute any alcohol or drug abuse patient.[facility], IncIn the event this information is protected by the Federal Confidentiality of Alcohol and Drug Abuse Patient Records regulations: The Federal rules restrict any use of the information to criminally investigate or prosecute any alcohol or drug abuse patient.[facility], IncIn the event this information is protected by the Federal Confidentiality of Alcohol and Drug Abuse Patient Records regulations: The Federal rules restrict any use of the information to criminally investigate or prosecute any alcohol or drug abuse patient.[facility], IncIn the event this information is protected by the Federal Confidentiality of Alcohol and Drug Abuse Patient Records regulations: The Federal rules restrict any use of the information to criminally investigate or prosecute any alcohol or drug abuse patient.[facility], IncIn the event this information is protected by the Federal Confidentiality of Alcohol and Drug Abuse Patient Records regulations: The Federal rules restrict any use of the information to criminally investigate or prosecute any alcohol or drug abuse patient.[facility], IncIn the event this information is protected by the Federal Confidentiality of Alcohol and Drug Abuse Patient Records regulations: The Federal rules restrict any use of the information to criminally investigate or prosecute any alcohol or drug abuse patient.[facility], IncIn the event this information is protected by the Federal Confidentiality of Alcohol and Drug Abuse Patient Records regulations: The Federal rules restrict any use of the information to criminally investigate or prosecute any alcohol or drug abuse patient.[facility], IncIn the event this information is protected by the Federal Confidentiality of Alcohol and Drug Abuse Patient Records regulations: The Federal rules restrict any use of the information to criminally investigate or prosecute any alcohol or drug abuse patient.[facility], IncIn the event this information is protected by the Federal Confidentiality of Alcohol and Drug Abuse Patient Records regulations: The Federal rules restrict any use of the information to criminally investigate or prosecute any alcohol or drug abuse patient.[facility], IncIn the event this information is protected by the Federal Confidentiality of Alcohol and Drug Abuse Patient Records regulations: The Federal rules restrict any use of the information to criminally investigate or prosecute any alcohol or drug abuse patient.[facility], IncIn the event this information is protected by the Federal Confidentiality of Alcohol and Drug Abuse Patient Records regulations: The Federal rules restrict any use of the information to criminally investigate or prosecute any alcohol or drug abuse patient.[facility], IncIn the event this information is protected by the Federal Confidentiality of Alcohol and Drug Abuse Patient Records regulations: The Federal rules restrict any use of the information to criminally investigate or prosecute any alcohol or drug abuse patient.[facility], IncIn the event this information is protected by the Federal Confidentiality of Alcohol and Drug Abuse Patient Records regulations: The Federal rules restrict any use of the information to criminally investigate or prosecute any alcohol or drug abuse patient.[facility], IncIn the event this information is protected by the Federal Confidentiality of Alcohol and Drug Abuse Patient Records regulations: The Federal rules restrict any use of the information to criminally investigate or prosecute any alcohol or drug abuse patient.[facility], IncIn the event this information is protected by the Federal Confidentiality of Alcohol and Drug Abuse Patient Records regulations: The Federal rules restrict any use of the information to criminally investigate or prosecute any alcohol or drug abuse patient.[facility], IncIn the event this information is protected by the Federal Confidentiality of Alcohol and Drug Abuse Patient Records regulations: The Federal rules restrict any use of the information to criminally investigate or prosecute any alcohol or drug abuse patient.[facility], IncIn the event this information is protected by the Federal Confidentiality of Alcohol and Drug Abuse Patient Records regulations: The Federal rules restrict any use of the information to criminally investigate or prosecute any alcohol or drug abuse patient.[facility], IncIn the event this information is protected by the Federal Confidentiality of Alcohol and Drug Abuse Patient Records regulations: The Federal rules restrict any use of the information to criminally investigate or prosecute any alcohol or drug abuse patient.[facility], IncIn the event this information is protected by the Federal Confidentiality of Alcohol and Drug Abuse Patient Records regulations: The Federal rules restrict any use of the information to criminally investigate or prosecute any alcohol or drug abuse patient.[facility], IncIn the event this information is protected by the Federal Confidentiality of Alcohol and Drug Abuse Patient Records regulations: The Federal rules restrict any use of the information to criminally investigate or prosecute any alcohol or drug abuse patient.[facility], IncIn the event this information is protected by the Federal Confidentiality of Alcohol and Drug Abuse Patient Records regulations: The Federal rules restrict any use of the information to criminally investigate or prosecute any alcohol or drug abuse patient.[facility], IncIn the event this information is protected by the Federal Confidentiality of Alcohol and Drug Abuse Patient Records regulations: The Federal rules restrict any use of the information to criminally investigate or prosecute any alcohol or drug abuse patient.[facility], IncIn the event this information is protected by the Federal Confidentiality of Alcohol and Drug Abuse Patient Records regulations: The Federal rules restrict any use of the information to criminally investigate or prosecute any alcohol or drug abuse patient.[facility], IncIn the event this information is protected by the Federal Confidentiality of Alcohol and Drug Abuse Patient Records regulations: The Federal rules restrict any use of the information to criminally investigate or prosecute any alcohol or drug abuse patient.[facility], IncIn the event this information is protected by the Federal Confidentiality of Alcohol and Drug Abuse Patient Records regulations: The Federal rules restrict any use of the information to criminally investigate or prosecute any alcohol or drug abuse patient.[facility], IncIn the event this information is protected by the Federal Confidentiality of Alcohol and Drug Abuse Patient Records regulations: The Federal rules restrict any use of the information to criminally investigate or prosecute any alcohol or drug abuse patient.[facility] Care Teams (unrecognized sec tion and content) Team Status: Active Member Role Status Dates Jamar Flal DO Primary Care Provider Active Team Status: [...] GeneralInternal Medicine08/04/14 Marco A Esqueda MD [address] [place], [place] [id number] PhysicianHematology/Oncology11/02/21 Christo Howard, PASSENGER AGENT.MANAGER CLIENT [address] [place] [address] Nurse PractitionerHematology/Oncology11/02/21 Clementine Aguilar, ANITHA [address] [place] [address] Specialty Care CoordinatorHematology/Oncology11/02/21Te MemberRelationship SpecialtyStart DateEnd Date Jamar Fall Jessica, DO PCP - GeneralInternal Medicine08/04/14 Marco A Esqueda MD [address] [place] [address] PhysicianHematology/Oncology11/02/21 Christo Howard, PASSENGER AGENT.MANAGER CLIENT [address] [place] [address] Nurse PractitionerHematology/Oncology11/02/21 Clementine Aguilar, RN [address] [place] [address] Specialty Care CoordinatorHematology/Oncology11/02/21Team MemberRelationship SpecialtyStart DateEnd Date Jamar Fall, DO PCP - GeneralInternal Medicine08/04/14 Marco A Esqueda MD [address] [place] [address] PhysicianHematology/Oncology11/02/21 Christo Howard, PASSENGER AGENT.MANAGER CLIENT [address] [place] [address] Nurse PractitionerHematology/Oncology11/02/21 Clementine Aguilar, RN [address] [place] [address] Specialty Care CoordinatorHematology/Oncology11/02/21Team MemberRelationship SpecialtyStart DateEnd Date Jamar Fall, DO PCP - GeneralInternal Medicine08/04/14 Marco A Esqueda MD [address] [place] [address] PhysicianHematology/Oncology11/02/21 Christo Howard, PASSENGER AGENT.MANAGER CLIENT [address] [place] [address] Nurse PractitionerHematology/Oncology11/02/21 Clementine Aguilar, RN [address] [place] [address] Specialty Care CoordinatorHematology/Oncology11/02/21Team MemberRelationship SpecialtyStart DateEnd Date Jamar Fall, DO PCP - GeneralInternal Medicine08/04/14 Marco A Esqueda MD [address] [place] [address] PhysicianHematology/Oncology11/02/21 Christo Howard, PASSENGER AGENT.MANAGER CLIENT [address] [place] [address] Nurse PractitionerHematology/Oncology11/02/21 Clementine Aguilar, RN [address] [place] [address] Specialty Care CoordinatorHematology/Oncology11/02/21Team MemberRelationship SpecialtyStart DateEnd Date Jamar Fall, DO PCP - GeneralInternal Medicine08/04/14 Marco A Esqueda MD [address] [place] [address] PhysicianHematology/Oncology11/02/21 Christo Howard, PASSENGER AGENT.MANAGER CLIENT [address] [place] [address] Nurse PractitionerHematology/Oncology11/02/21 Clementine Aguilar, ANITHA [address] [place] [address] Specialty Care CoordinatorHematology/Oncology11/02/21Team MemberRelationship SpecialtyStart DateEnd Date Jamar Fall, DO PCP - GeneralInternal Medicine08/04/14 Marco A Esqueda MD [address] [place] [address] PhysicianHematology/Oncology11/02/21 Christo Howard, PASSENGER AGENT.MANAGER CLIENT [address] [place] [address] Nurse PractitionerHematology/Oncology11/02/21 Clementine Aguilar, RN [address] [place] [address] Specialty Care CoordinatorHematology/Oncology11/02/21Team MemberRelationship SpecialtyStart DateEnd Date Jamar Fall, DO PCP - GeneralInternal Medicine08/04/14 Marco A Esqueda MD [address] [place] [address] PhysicianHematology/Oncology11/02/21 Christo Howard, PASSENGER AGENT.MANAGER CLIENT [address] [place] [address] Nurse PractitionerHematology/Oncology11/02/21 Clementine Aguilar, RN [address] [place] [address] Specialty Care CoordinatorHematology/Oncology11/02/21Team MemberRelationship SpecialtyStart DateEnd Date Jamar Fall, DO PCP - GeneralInternal Medicine08/04/14 Marco A Esqueda MD [address] [place] [address] PhysicianHematology/Oncology11/02/21 Christo Howard, PASSENGER AGENT.MANAGER CLIENT [address] [place] [address] Nurse PractitionerHematology/Oncology11/02/21 Clementine Aguilar, ANITHA [address] [place] [address] Specialty Care CoordinatorHematology/Oncology11/02/21Team MemberRelationship SpecialtyStart DateEnd Date Jamar Fall, DO PCP - GeneralInternal Medicine08/04/14 Marco A Esqueda MD [address] [place] [address] PhysicianHematology/Oncology11/02/21 Christo Howard, PASSENGER AGENT.MANAGER CLIENT [address] [place] [address] Nurse PractitionerHematology/Oncology11/02/21 Clementine Aguilar, ANITHA [address] [place] [address] Specialty Care CoordinatorHematology/Oncology11/02/21Team MemberRelationship SpecialtyStart DateEnd Date Jamar Fall, DO PCP - GeneralInternal Medicine08/04/14 Marco A Esqueda MD [address] [place] [address] PhysicianHematology/Oncology11/02/21 Christo Howard, PASSENGER AGENT.MANAGER CLIENT [address] [place] [address] Nurse PractitionerHematology/Oncology11/02/21 Clementine Aguilar, ANITHA [address] [place] [address] Specialty Care CoordinatorHematology/Oncology11/02/21Team MemberRelationship SpecialtyStart DateEnd Date Jamar Fall, DO PCP - GeneralInternal Medicine08/04/14 Marco A Esqueda MD [address] [place] [address] PhysicianHematology/Oncology11/02/21 Christo Howard, PASSENGER AGENT.MANAGER CLIENT [address] [place] [address] Nurse PractitionerHematology/Oncology11/02/21 Clementine Aguilar, ANITHA [address] [place] [address] Specialty Care CoordinatorHematology/Oncology11/02/21Team MemberRelationship SpecialtyStart DateEnd Date Jamar Fall DO PCP - GeneralInternal Medicine08/04/14 Marco A Esqueda MD [address] [place] [address] PhysicianHematology/Oncology11/02/21 Christo Howard, PASSENGER AGENT.MANAGER CLIENT [address] [place] [address] Nurse PractitionerHematology/Oncology11/02/21 Clementine Aguilar, ANITHA [address] [place] [address] Specialty Care CoordinatorHematology/Oncology11/02/21Team MemberRelationship SpecialtyStart DateEnd Date Jamar Flal DO PCP - GeneralInternal Medicine08/04/14 Marco A Esqueda MD [address] [place] [address] [place] [address] PhysicianHematology/Oncology11/02/21 Christo Howard, PASSENGER AGENT.MANAGER CLIENT [address] [place] [address] [place] [address] Nurse PractitionerHematology/Oncology11/02/21 Clementine Aguilar, ANITAH [address] [place] [address] Specialty Care CoordinatorHematology/Oncology11/02/21Team MemberRelationship SpecialtyStart DateEnd Date Jamar Fall DO PCP - GeneralInternal Medicine08/04/14 Marco A Esqueda MD [address] [facility] [place] [address] PhysicianHematology/Oncology4 Christo Howard, PASSENGER AGENT.MANAGER CLIENT [address] [facility] [address] Nurse PractitionerHematology/Oncology11/02/21 Clementine Aguilar, ANITHA [address] [facility] [place] [address] Specialty Care CoordinatorHematology/Oncology11/02/21Team MemberRelationship SpecialtyStart DateEnd Date Jamar Fall DO PCP - GeneralInternal Medicine08/04/14 Marco A Esqueda MD [address] [facility] [place] [address] PhysicianHematology/Oncology11/02/21 Christo Howard, PASSENGER AGENT.MANAGER CLIENT [address] [facility] [address] Nurse PractitionerHematology/Oncology11/02/21 Clementine Aguilar, ANITHA [address] [facility] [place] [address] Specialty Care CoordinatorHematology/Oncology11/02/21Team MemberRelationship SpecialtyStart DateEnd Date Jamar Fall DO PCP - GeneralInternal Medicine08/04/14 Marco A Esqueda MD [address] [place] [address] [place] [address] PhysicianHematology/Oncology11/02/21 Christo Hwoard APRN.MANAGER CLIENT [address] [place] [address] [place] [address] Nurse PractitionerHematology/Oncology11/02/21 Clementine Aguilar, ANITHA [address] [place] [address] [place] [address] Specialty Care CoordinatorHematology/Oncology11/02/21Team MemberRelationship SpecialtyStart DateEnd Date Jamar Fall MD [address] [place] [id number] PCP - GeneralInternal Qjulwdsn46/15/23Team MemberRelationshipSpecialtyStart Date End Date Jamar Fall MD [address] [place] [id number] PCP - GeneralInternal Pgjundds28/15/23Te MemberRelationshipSpecialtyStart Date End Date Jamar Fall DO PCP - GeneralInternal Medicine08/04/14 Marco A Esqueda MD [address] [place] [address] [place] [address] PhysicianHematology/Oncology11/02/21 Christo Howard APRN.MANAGER CLIENT [address] [place] [address] [place] [address] Nurse PractitionerHematology/Oncology11/02/21 Clementine Aguilar, ANITHA [address] [facility] [place] [address] Specialty Care CoordinatorHematology/Oncology11/02/21Team MemberRelationship SpecialtyStart DateEnd Date Jamar Fall DO PCP - GeneralInternal Medicine08/04/14 Marco A Esqueda MD [address] [place] [address] [place] [address] PhysicianHematology/Oncology11/02/21 Christo Howard APRN.MANAGER CLIENT [address] [place] [address] [place] [address] Nurse PractitionerHematology/Oncology11/02/21 Clementine Aguilar, ANITHA [address] [place] [address] [place] [address] Specialty Care CoordinatorHematology/Oncology11/02/21 Team Status: Active [...] - GeneralInternal Medicine08/04/14 Marco A Esqueda MD [address] [place] [address] [place] [address] PhysicianHematology/Oncology11/02/21 Christo Howard, PASSENGER AGENT.MANAGER CLIENT [address] [facility] [place] [address] Nurse PractitionerHematology/Oncology11/02/21 Clementine Aguilar, ANITHA [address] [facility] [facility] [place] [address] Specialty Care CoordinatorHematology/Oncology11/02/21Team MemberRelationship SpecialtyStart DateEnd Date Jamar Fall DO PCP - GeneralInternal Medicine08/04/14 Marco A Esqueda MD [address] [place] [address] [place] [address] PhysicianHematology/Oncology11/02/21 Christo Howard, PASSENGER AGENT.MANAGER CLIENT [address] [place] [address] [place] [address] Nurse PractitionerHematology/Oncology11/02/21 Clementine Aguilar RN [address] [facility] [facility] [place] [address] Specialty Care CoordinatorHematology/Oncology11/02/21 Team Status: Active Member [...] Medicine08/04/14 Marco A Esqueda MD [address] [facility] [place] [address] PhysicianHematology/Oncology11/02/21 Christo Howard, PASSENGER AGENT.MANAGER CLIENT [address] [place] [address] Nurse PractitionerHematology/Oncology11/02/21 Clementine Aguilar, ANITHA [address] [facility] [place] [address] Specialty Care CoordinatorHematology/Oncology11/02/21Team MemberRelationship SpecialtyStart DateEnd Date Jamar Fall DO PCP - GeneralInternal Medicine08/04/14 Marco A Esqueda MD [address] [facility] [place] [address] PhysicianHematology/Oncology11/02/21 Christo Howard, PASSENGER AGENT.MANAGER CLIENT [address] [facility] [place] [address] Nurse PractitionerHematology/Oncology11/02/21 Clementine Aguilar, ANITHA [address] [facility] [place] [address] Specialty Care CoordinatorHematology/Oncology11/02/21Team MemberRelationship SpecialtyStart DateEnd Date Jamar Fall DO PCP - GeneralInternal Medicine08/04/14 Marco A Esqueda MD [address] [facility] [place] [address] PhysicianHematology/Oncology11/02/21 Christo Howard, PASSENGER AGENT.MANAGER CLIENT [address] [place] [address] Nurse PractitionerHematology/Oncology11/02/21 Clementine Aguilar, ANITHA [address] [facility] [place] [address] Specialty Care CoordinatorHematology/Oncology11/02/21Team MemberRelationship SpecialtyStart DateEnd Date Jamar Fall DO PCP - GeneralInternal Medicine08/04/14 Marco A Esqueda MD [address] [facility] [place] [address] PhysicianHematology/Oncology11/02/21 Christo Howard, PASSENGER AGENT.MANAGER CLIENT [address] [facility] [place] [address] Nurse PractitionerHematology/Oncology11/02/21 Clementine Aguilar, ANITHA [address] [facility] [place] [address] Specialty Care CoordinatorHematology/Oncology11/02/21Team MemberRelationship SpecialtyStart DateEnd Date Jamar Fall DO PCP - GeneralInternal Medicine08/04/14 Marco A Esqueda MD [address] [facility] [place] [address] PhysicianHematology/Oncology11/02/21 Christo Howard, PASSENGER AGENT.MANAGER CLIENT [address] [facility] [place] [address] Nurse PractitionerHematology/Oncology11/02/21 Clementine Aguilar, ANITHA [address] [place] [address] [place] [address] Specialty Care CoordinatorHematology/Oncology11/02/21Team MemberRelationship SpecialtyStart DateEnd Date Jamar Fall DO [address] [place] [phone] PCP - GeneralInternal Niisemms87/15/23Team MemberRelationshipSpecialtyStart Date End Date Jamar Fall DO [address] [place] [address] PCP - GeneralInternal Hwfvnhqi29/15/23 Reason for Visit (unrecogniz ed section and content) ReasonCommentsLab OrdersReasonCommentsMedication QuestionLupron Start DateReason Onset DateCommentsOpened In Error2ReasonCommentsCare Coordination Testosterone ResultsReasonCommentsMedication AuthorizationXtandiReasonComments Medication UpdateXtandi free drugReasonCommentsCare CoordinationCovid Vaccine ReasonCommentsOral Anti-cancer Agent EducationEnzalutamideReasonCommentsCare CoordinationMedication Start Date - EnzalutamideReasonCommentsCare Coordination Medication UpdateReasonCommentsProstate Cancer2 week follow upSpecialtyDiagnoses / ProceduresReferred By ContactReferred To Contact Diagnoses Malignant neoplasm of prostate (HCC) Procedures DENOSUMAB INJECTION Marco A Esqueda MD [address] [place] [address] [place] [address] Himanshu Treat Ariella [address] [place] [address] Referral IDStatusReasonStart DateExpiration DateVisits RequestedVisits [id number] CoordinationRefill QuestionReasonCommentsProstate Cancer1 month follow upReason CommentsProstate CancerFollow upReasonCommentsProstate Cancer3 month follow up ReasonCommentsProstate CancerReasonCommentsProstate CancerFollow upReason CommentsSuspicious Skin LesionSpecialtyDiagnoses / ProceduresReferred By Contact Referred To ContactDermatology Diagnoses lesion of skin of R ear Marco A Esqueda MD [address] [place] [address] [place] [address] Lety Holguin MD [address] [place] [address] Referral IDStatusReasonStart DateExpiration DateVisits RequestedVisits [id number] Cancer3 month follow upEstablished PatientReasonCommentsRefill RequestReasonOnset DateComments Refill Zpmwlxl56/16/2024ReasonOnset DateCommentsRefill Krehexx24/23/2024Reason Onset DateCommentsLab Gjqpui3207/25/2024ReasonCommentsSkin Check (unrecognized sect ion and content) No Status Records FoundNo Status Records FoundNo Status Records FoundNo Status Records FoundNo Status Records FoundNo Status Records Found INFORMATION SOURCE (unrecogn ized section and content) DATE CREATED AUTHOR 10/31/2022 [facility] DATE CREATED AUTHOR AUTHOR'S ORGANIZ ATION 03/02/2024 [facility] DATE CREATED AUTHOR AUTHOR'S ORGANIZ ATION 02/28/2025 [facility] DATE CREATED AUTHOR AUTHOR'S ORGANIZ ATION 04/01/2025 [facility] DATE CREATED AUTHOR AUTHOR'S ORGANIZ ATION 04/07/2025 [facility] DATE CREATED AUTHOR AUTHOR'S ORGANIZ ATION 05/24/2025 [facility] Inactive Administered Medications - up to 3 most recent administrations Administered Medications (un recognized section and content) Medication OrderMAR ActionAction DateDoseRateSite denosumab 120 mg injection (XGEVA) 120 mg, SUBCUTANEOUS, ONCE, 1 dose, On [place] Ann 11/02/23 at 1000, REFRIGERATE Given11/02/2023 9:50 AM [id number] mgArm, Left Goals (unrecognized section and content) [...] BE BASED ON THE PRIMARY CLINICAL RECORDS. [facility] [employer] [facility]. provides no warranty or guarantee of the accuracy or completeness of information in this document.
== END 2025-06-19 09:29 | disposition home or self-care (01) ==
LOC: MRI 09:28
PROVIDERS: PCP Internal Medicine; Visit Provider Internal Medicine
DX: K86.89 Other specified diseases of pancreas (principal)
CPT/HCPCS: 74181